=== PATIENT | male | born 1980 | race Caucasian/White ===

== ENCOUNTER 2023-03-20 11:41 | Emergency (ER) | payer MEDICAID, SELFPAY ==
[2023-03-20 11:44] VITALS: BP 127/81; PULSE 95; RESP 18; TEMP 36.6; O2SAT 97; BMI 26.9
[2023-03-20 11:51] VITALS: O2SAT 97
--- NOTE | 2023-03-20 12:15 | EDS_ITS ---
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 Patient is here because he was diagnosed with COVID earlier this morning. Patient has been ill for greater than 3 days. He states that his sugar was greater than 370 because he is also type I diabetic and he is concerned. Patient has not taken any ibuprofen or Tylenol for 12 hours. Patient states that his body is aching, he also has pain to his thighs and groin. He also complains of some chest congestion. PFS <ABHISHEK Gutierrez - Last Filed: 03/20/23 13:24> [facility] Medical History (Updated 03/20/23 @ 13:24 by ABHISHEK Gutierrez) Aortic stenosis Diabetes Home Medications cholecalciferol (vitamin D3) 10 mcg (400 unit) tablet (Vitamin D3) 10 mcg PO DAILY 03/20/23 [History Last Taken Unknown] duloxetine 30 mg capsule,delayed release (Cymbalta) 30 mg PO DAILY 03/20/23 [History Last Taken Unknown] escitalopram oxalate 20 mg tablet 20 mg PO DAILY 03/20/23 [History Last Taken Unknown] levothyroxine 150 mcg tablet (Euthyrox) 150 mcg PO DAILY 03/20/23 [History Last Taken Unknown] loratadine 10 mg tablet (Allergy Relief (loratadine)) 10 mg PO DAILY 03/20/23 [History Last Taken Unknown] rosuvastatin 5 mg tablet (Crestor) 5 mg PO DAILY 03/20/23 [History Last Taken Unknown] Allergy/AdvReac Type Severity Reaction Status Date / Time tramadol Allergy Intermediate Rash Verified 03/20/23 11:44 hydromorphone [From Dilaudid] Allergy Mild Hives Verified 03/20/23 11:44 Surgical History (Updated 03/20/23 @ 11:54 by Loida Reese) History of open heart surgery Social History Smoking Status: Current every day smoker tobacco type: cigarettes ROS <ABHISHEK Gutierrez - Last Filed: 03/20/23 13:24> ROS ED ROS Narrative Constitutional: Negative for weight loss, weakness. Positive fever and chills Eyes: Negative for vision loss, vision change, double vision ENT: Negative for any sore throat, ear pain, congestion Cardiovascular: Negative for any chest pain, tightness, palpitations Respiratory: Negative for any sputum production, hemoptysis, dyspnea on exertion, orthopnea. Positive for dyspnea Gastrointestinal: Negative for any abdominal pain, nausea, vomiting, diarrhea, constipation, blood in stool, blood in vomit : Negative for any urinary frequency, dysuria, retention, blood in urine Muscle skeletal: Negative for any muscle joint pain, stiffness, arthralgias, neck pain, back pain. Positive for myalgias Neurological: Negative for any headache, syncope, numbness or tingling, dizziness Skin: Negative for any rashes, lumps, itching, abrasions, lacerations Psychiatric: Negative for any depression, anxiety, stress, suicidal ideation, homicidal ideation Hematologic: Negative for any easy bruising, excessive bruising, easy bleeding Allergies: Negative for any eczema, hives, rash EXAM <ABHISHEK Gutierrez - Last Filed: 03/20/23 13:24> Physical Exam Narrative Exam Narrative: Vital signs reviewed. HEET: Head normocephalic atraumatic, TMs clear bilaterally. Posterior pharynx is clear, moist mucous membranes. Nares clear bilaterally. Neck: Supple with no lymphadenopathy or tenderness. No signs of meningismus, negative jolt sign. Cardiac: Regular rate and rhythm systolic murmur secondary to think valve, no gallops or rubs, equal peripheral pulses bilaterally. Respiratory: Lungs clear to auscultation bilaterally. No chest tenderness. Abdomen: Soft, nontender, nondistended. No abdominal bruit or pulsatile masses. No hepatosplenomegaly Extremities: No peripheral edema, no signs of gross trauma or deformity. Active full range of motion of all extremities. Neuro: Cranial nerves II through XII intact, no focal neurological deficits. Skin: Clean dry and intact with no rash, purpura, petechiae, vesicles or pustules. Backs/flank: No CVA tenderness, no midline spinal tenderness, no deformity. Psych: Normal mood and affect. No SI, HI or acute psychosis. Const Vital Signs: 03/20/23 11:44 03/20/23 11:51 Temperature 97.8 F Temperature Source Temporal Pulse Rate 95 Respiratory Rate 18 Respiratory Effort Normal Respiratory Depth Normal Respiratory Pattern Normal Blood Pressure 127/81 H Blood Pressure Mean 96 Pulse Ox 97 Oxygen Delivery Method Room Air Room Air <Dr. Melquiades Patel MD - Last Filed: 03/20/23 15:10> Physical Exam Const Vital Signs: 03/20/23 11:44 03/20/23 11:51 Temperature 97.8 F Temperature Source Temporal Pulse Rate 95 Respiratory Rate 18 Respiratory Effort Normal Respiratory Depth Normal Respiratory Pattern Normal Blood Pressure 127/81 H Blood Pressure Mean 96 Pulse Ox 97 Oxygen Delivery Method Room Air Room Air MDM <ABHISHEK Gutierrez - Last Filed: 03/20/23 13:24> [facility] Lab Data Labs: Laboratory Results - last 24 hr 03/20/23 12:43 POC Glucose 242 H Treatment and Re-Evaluation :: Patient appears generally well, patient appears nontoxic, vital signs are stable. Patient does feel warm to the touch. Patient is not take any Tylenol or ibuprofen. Patient I believe is suffering from myalgias because he has not controlling his fever. Patient is also not drinking fluids. Patient will receive Tylenol, ibuprofen here. Patient will have his blood sugar check. Patient's blood sugar was 245. Patient is drinking by mouth fluids. Patient was given ibuprofen, Tylenol. Patient does feel better. At this time, patient was offered an EKG secondary to his heart history however he refused. He states he would like to leave. Patient is in no distress, vital signs are stable. Patient will continue to be in quarantine for the next 3 days. He is instructed to return for any worsening symptoms. He is instructed to use ibuprofen, Tylenol as directed as well as to keep a close eye on his blood sugars. At this time, patient stable for discharge <Dr. Melquiades Patel MD - Last Filed: 03/20/23 15:10> [facility] Narrative Medical decision making narrative: I have personally performed a face to face assessment of the patient and have reviewed the ROBERT Note. I performed a substantive portion of the visit including all aspects of the following. My torres findings include: History: Patient states he has COVID. He knows he has had it for 3 days but thinks it might of been almost a week. He thought it was just a cold at first. But then he learned that other people at his facility have COVID. He states he gets some headaches and muscle aches coughing but not short of breath. He states his sugar was up but he took more insulin his got it down. He states his overall he does not feel good. But he is not having trouble breathing. He is not having nausea or vomiting. Patient told me what I really want is a remote so I can turn on the football game. Exam: Patient is awake and alert. I saw him after he walked back from the restroom. He is comfortable. He is not dyspneic. His lungs are clear. HEENT is overall normal. Heart is regular. He does have a systolic murmur but he has had valvular repair. Abdomen is soft and nontender. He has no significant edema. Just trace swelling of his legs which is normal for him. Medical Decision Making: We initially discussed the possibility of Paxlovid. But it sounds like his symptoms may actually be pushing the limit for duration. We will check BG T to see where he is now. We will also check EKG. We will then discussed Paxlovid with him. Patient then refused the EKG. He stated he just wants to go. He wants to watch the game and does not want to be here any longer. I cannot force him to stay. Lab Data Labs: Laboratory Results - last 24 hr 03/20/23 12:43 POC Glucose 242 H Discharge Plan Triage Chief Complaint: Cold Sx ED Midlevel Provider: Tony Thakur ED Provider: Melquiades Patel Dx/Rx/DC Orders Clinical Impression: COVID-19 Instructions: Coronavirus Disease 2019 (COVID-19): Caring for Yourself or Others Prescriptions: No Action cholecalciferol (vitamin D3) [Vitamin D3] 10 mcg (400 unit) tablet 10 mcg PO DAILY rosuvastatin [Crestor] 5 mg tablet 5 mg PO DAILY levothyroxine [Euthyrox] 150 mcg tablet 150 mcg PO DAILY escitalopram oxalate 20 mg tablet 20 mg PO DAILY duloxetine [Cymbalta] 30 mg capsule,delayed release(DR/EC) 30 mg PO DAILY loratadine [Allergy Relief (loratadine)] 10 mg tablet 10 mg PO DAILY Primary Care Provider: LEELA DUMAS Referrals: NOT,DEFINED [Non-Staff] - Activity Restrictions/Additional Instructions: Take Tylenol every 6 hours, ibuprofen every 8 hours. Maintain hydration keep a close eye on your blood sugars. Disposition Disposition: Home, Self Care Discharge Date/Time: 03/20/23 13:39
[2023-03-20] MEDS: Ibuprofen 600 MG Tablet PO (12:43)
[2023-03-20] MEDS: Acetaminophen 500 MG Tablet 1000 MG PO (12:44)
[2023-03-20 13:03] LABS: Bedside Glucose 242 mg/dL (74-106)
== END 2023-03-20 13:39 | disposition home or self-care (01) ==
PROVIDERS: Emergency Provider Emergency Medicine; Visit Provider Emergency Medicine
DX: U07.1 COVID-19 (principal); F17.210 Nicotine dependence, cigarettes, uncomplicated; Z79.899 Other long term (current) drug therapy
CPT/HCPCS: 82962; 99285

== ENCOUNTER → 2023-04-25 | Outpatient (CLI) | payer MEDICAID, SELFPAY ==
[2023-04-25 09:42] LABS: Hematocrit 43.5 % (40-54); Hemoglobin 14.1 g/dL (13.0-16.5); Mean Corp Hgb Conc 32.4 g/dL (32-36); Mean Corpuscular Hgb 30.5 pg (27.0-32.0); Platelet Count 210 K/mm3 (150-450); RBC Distribution Width SD 44.8 fl (35.1-43.9); Red Blood Count 4.63 M/mm3 (4.6-6.2); White Blood Count 6.7 K/mm3 (4.4-11.0)
[2023-04-25 10:17] LABS: Hemoglobin A1c 8.2 % (3.8-5.6)
[2023-04-25 10:23] LABS: ALB/GLOB Ratio 0.8 RATIO (0.9-2.4); AST(SGOT) 32 U/L (15-37); Alanine Aminotransfer ALT/SGPT 37 U/L (16-61); Albumin, Serum 2.9 g/dL (3.2-5.0); Alkaline Phosphatase 91 U/L (45-117); Anion Gap 6 (5-15); BUN 12 mg/dL (7-18); BUN/Creat Ratio 11.5 RATIO (10-20); Calcium,Total 8.4 mg/dL (8.5-10.1); Chloride 106 mmol/L (98-107); Creatinine, Serum 1.04 mg/dL (0.70-1.30); EST Glomerular Filtration Rate 83 mL/min (>60); Est Glom Filt Rate - Afr Amer 100 mL/min (>60); Free T3 2.5 pg/mL (2.18-3.98); Globulin 3.5 g/dL (2.2-4.2); Glucose 350 mg/dL (74-106); Potassium 4.4 mmol/L (3.5-5.1); Protein, Total 6.4 g/dL (6.4-8.2); Sodium Level 140 mmol/L (136-145); T4 Free Direct 0.59 ng/dL (0.76-1.46); T4 Total, Thyroxin 3.7 ug/dL (4.5-12.1); Thyroid Stim Hormone (TSH) 5.66 uIU/mL (0.358-3.74)
== END | disposition home or self-care (01) ==
PROVIDERS: Referring Provider Family Medicine; Visit Provider Family Medicine
DX: R94.6 Abnormal results of thyroid function studies (principal)
CPT/HCPCS: 36415; 80053; 83036; 84436; 84439; 84443; 84481; 85027

== ENCOUNTER → 2024-12-12 | Outpatient (CLI) | payer MEDICAID, SELFPAY ==
--- NOTE | 2024-12-12 12:20 | RAD_ITS ---
PROCEDURE: CERV SPINE 4 OR 5 VIEWS 12/12/2024 REASON FOR EXAM: NECK AND R ARM PAIN TECHNIQUE: 6 views of the cervical spine. COMPARISON: None FINDINGS: Vertebral body heights are maintained. There is straightening of the normal cervical lordosis. [id number] multilevel disc height loss, endplate osteophyte formation, with uncovertebral and facet arthropathy. These changes are worst at C6-7 where there is at least mild osseous neural foraminal narrowing bilaterally. The odontoid view is unremarkable. Median sternotomy wires are partially imaged. RAD/Cerv Spine 4 or 5 Views IMPRESSION: 1. [id number] degenerative changes of the cervical spine, worst at C6-7. 2. Straightening of the normal cervical lordosis may be related to pain, posit ioning, or spasm Reading Location: [id number]
== END | disposition home or self-care (01) ==
LOC: RAD 12:07
PROVIDERS: Referring Provider Anesthesiology Pain Medicine; Visit Provider Anesthesiology Pain Medicine
DX: M54.2 Cervicalgia (principal); M79.601 Pain in right arm
CPT/HCPCS: 72050

== ENCOUNTER → 2025-01-16 | Outpatient (CLI) | payer MEDICAID, SELFPAY ==
--- NOTE | 2025-01-16 16:29 | MRI_ITS ---
PROCEDURE: SPINE CERVICAL (ROUTINE) 01/16/2025 REASON FOR EXAM: RADICULOPATHY TECHNIQUE: SPINE CERVICAL (ROUTINE) Multiplanar and multisequence images were obtained without IV contrast administration. COMPARISON: 01-11-2025 CR FINDINGS: Straightening of cervical spine curve denoting muscle spasm. Preserved vertebral bodies height. No vertebral fractures or dislocation. Normal craniometric measures of the craniovertebral junction Cervical spondylodegenerative changes evident by multilevel anterior marginal osteophytic lipping and subchondral degenerative marrow signal/Modio II of the examined vertebral end plates with variable degrees of reduced bright T2 signal of the intervertebral discs. C1-C2: Atlantodens interval is preserved. Odontoid process and atlantoaxial joint appear normal. Mild atlanto-axial degenerative changes. C2-C3: There is no significant disc pathology. Normal morphology of the ligamentum flava. No arthropathy of the uncovertebral joints. No significant spinal canal stenosis noted. C3-C4: a 2.4 mm diffuse disc bulge with right foraminal protrusion along with bilateral uncovertberal arthropathy indenting the theca encroaching upon the related neural exit foramina inducing marked right and mild left exiting nerve roots compression. C4-C5: a 3.9 mm diffuse disc bulge with left foraminal protrusion along with bilateral uncovertberal arthropathy indenting the theca encroaching upon the related neural exit foramina inducing moderate right and marked left exiting nerve roots compression. C5-C6: a 3 mm diffuse disc bulge along with bilateral uncovertberal arthropathy indenting the theca encroaching upon the related neural exit foramina inducing moderate exiting nerve roots compression. C6-C7: a 4.5 mm diffuse disc bulge along with bilateral uncovertberal arthropathy indenting the theca encroaching upon the related neural exit foramina inducing marked exiting nerve roots compression. C7-T1: a 2 mm diffuse disc bulge indenting the theca encroaching upon the related neural exit foramina inducing moderate exiting nerve roots compression. Normal appearance of the examined cervical cord and cranio-cervical junction. No marrow infiltrative lesions. No paraspinal soft tissue masses. MRI/Spine Cervical (Routine) IMPRESSION: Straightening of cervical curve denoting myospasm. Cervical spondylodegenerative changes with multilevel disc changes along with u ncovertberal arthropathy inducing neural foraminal compromise as detailed. Reading Location: [facility]
== END | disposition home or self-care (01) ==
LOC: MRI 16:24
PROVIDERS: Referring Provider Anesthesiology Pain Medicine; Visit Provider Anesthesiology Pain Medicine
DX: M54.12 Radiculopathy, cervical region (principal)
CPT/HCPCS: 72141

== ENCOUNTER 2025-02-05 10:00 | Outpatient (RCR) | payer MEDICAID, SELFPAY ==
--- NOTE | 2025-01-17 16:22 | HP.PTEVAL ---
Patient's Visit Information Visit Information Visit Information: SAMANTHA ZHONG is a 44 year old M referred to Physical Therapy by Dr. Freddy Mujica MD with a diagnosis of B hip pain, neck pain. Date of Evaluation: 01/17/25 Physical Therapist: Kahlil Siegel, DPT, OCS, CSCS Visit Plan Frequency: 2x /Week Duration: 4-6 Weeks Plan: 2x/week for , 4-6(start 2 and possibly pool after as patient had heart surgery 4 weeks ago adn will check with doctor on restriction), EG to recheck in two weeks. IE HEP: c/s ret 10x 8x.day, ret/ext 10x4x/day, scap circles throughout day, appropriate posture on phone and reading and in general all with HO Treat with 1. NWB hip strength on mat to I over first two weeks with pics. 2. manual therapy for cervical ret ext adn traction, sTM to parspinals neck and progression of cervical ext monitorring progress with R arm symptoms and neck pain. consider pool or gym after first two weeks. Subjective Subjective: Chronic pain and seent to pain mgmt. B hip pain with h/o R hip labral tear and repair. Pain creeping back here. L hip hurts also. Neck hurts also, shooting pain down R UE. Looking down made it worse. Had MRI of neck yesterday and jose g will return to spine surgeon. R hip pain is lateral and into buttock worse with walking , Similar on L side but more intermittent. Neck pain is center and off to sides. Up to 5/10 worse lying down at night. Arm symptoms worse lying down adn reading and phone looking down. Sleeps on sides. Wakes him up at times. Employed: no tocurrently, spends day recovering from heart surgery 12/25 and had mechanical valve placement:Not lifting more than 10 # until end January. Hobbies: sports watching. Basic ADLs are I. Cooking meals I.Steps are no problem at homee. Pain B hip pain: Pain Intensity (Out of 10): 0 Pain Intensity Range: 0 and 3 Comment: worse WB and sitting too long. Objective Objective: Walks into PT I and safely, protracted scap, kyphotic T/S looking down often. Trasnfrs chair and bed I. Limited scap ROM depression and retraction B. cervical aROM 15 ext adn 35 B rotation with end range pain in neck. Looking down makes tingly numbness worse, repeated ext increases ext rOM quickly. UE AROM stiff in elevation but WFL, strength 4- shoulder flexion adn abd and er, 4 IR adn bi and tri and wrists. Hip aROM limited in flexion B and IR B with pain end range B L >R, + FADDIR B, ESTRELLITA is OK. 50 er and 5 IR. knee adn ankle AROM WFL. Max tightness in pecs, HS and quads B. reflexes 2/3 bi and tri and patella and achilles Sensation UE WNL to gross light touch. LE gross light touch seems OK but motor control in ankles seems slow B inv/eev. - slump, - SLR. Weakness apparent in abd and ext hips 3/5, flexion 3+ B, knees 4+/5, ankles 4/5 Chest incision is healed, drainage incisions still scabbed over. Balance/Special Test Scores Oswestry Neck Score: 26 Goals Goal 1:: neck ext to 50 and rotations to 55 without pain to show improved motion/funciton Goal Time Frame: 4-6 Weeks Goal 2:: I appropriate mgmt of neck exercises for UE and hip strength for hips at homee or in gym. Goal Time Frame: 4-6 Weeks Goal 3:: Sleep without waking due to arm symptoms and neck pain Goal Time Frame: 4-6 Weeks Goal 4:: steps and marching without pain Goal Time Frame: 4-6 Weeks Goal 5:: nck oswestry 4 or better Goal Time Frame: 4-6 Weeks Rehabilitation Potential Physical Therapy Diagnosis: neck loss of ROM likely discopathy, hip with degenerative changes B. Rehabilitation Potential: Fair Anticipated Interventions Patient/Client Instruction: Educate patient on: Condition and Plan of Care For the Purpose of:: To decrease pain, To increase ROM, To improve nutrient delivery to tissue, To improve muscle performance and motor function, To increase tolerance to activity/condition/position and To improve gait and locomotor functions Therapeutic Exercise to Include: Strength training, Postural training, Flexibilty training, Gait and locomotor training, Passive ROM, Active ROM and Nahum Exercises For the Purpose of:: To decrease pain, To increase ROM, To improve nutrient delivery to tissue, To improve muscle performance and motor function, To increase tolerance to activity/condition/position, To improve ability of physical actions for home/community/work/leisure and To improve gait and locomotor functions Manual Therapy Techniques to Include: Mobilization, Passive ROM and Soft tissue mobilization For the Purpose of:: To decrease pain, To increase ROM, To improve nutrient delivery to tissue, To increase tolerance to activity/condition/position and To improve ability of physical actions for home/community/work/leisure Text: Thank you for the opportunity to evaluate your patient. For Medicare and Medicare HMO plans, please review the plan of care and approve it. It will need to be FAXED BACK to us at [phone] for Medicare purposes. For Medicare only, by signing this I certify the plan of care. Please let me know if there are questions or concerns regarding this plan of care. Physician Signature: Date:
--- NOTE | 2025-03-21 15:59 | HP.PTDCNRP_ITS ---
Patient Information Patient Information: SAMANTHA ZHONG was seen in my office for initial evaluation on 01/17/25. The following Plan of Care was established for this patient: POC Established Initial Frequency: 2x /Week Initial Duration: 4-6 Weeks Anticipated Interventions Patient/Client Instruction: Educate patient on: Condition and Plan of Care For the Purpose of:: To decrease pain, To increase ROM, To improve nutrient delivery to tissue, To improve muscle performance and motor function, To increase tolerance to activity/condition/position and To improve gait and l ocomotor functions Therapeutic Exercise to Include: Strength training, Postural training, Flexibilty training, Gait and locomotor training, Passive ROM, Active ROM and Nahum Exercises For the Purpose of:: To decrease pain, To increase ROM, To improve nutrient delivery to tissue, To improve muscle performance and motor function, To increase tolerance to activity/condition/position, To improve ability of physical actions for home/community/work/leisure and To improve gait and locomotor functions Manual Therapy Techniques to Include: Mobilization, Passive ROM and Soft tissue mobilization For the Purpose of:: To decrease pain, To increase ROM, To improve nutrient delivery to tissue, To increase tolerance to activity/condition/position and To improve ability of physical actions for home/community/work/leisure Last Seen Last Seen: This patient was last seen in our office 02/05/25. Pertinent comments regarding their Physical therapy will appear below: Pt seen 5 visits of POC and was 10% better and still having cervical radicular symptoms. He was to continue the POC afteere f/u with surgeon but never returned. At this point, it has been over 4 weeks and I will discontinue from my care. At this point I will be discontinuing this patient from physical therapy. I would be happy to see this patient again in the future if found appropriate by the physician. Thank you! Kahlil Siegel, DPT, OCS, CSCS Balance/Gait/Functional tests Balance/Special Test Scores Oswestry Neck Score: 26
== END 2025-02-05 19:00 | disposition home or self-care (01) ==
LOC: PT 10:00
PROVIDERS: Referring Provider Anesthesiology Pain Medicine; Visit Provider Anesthesiology Pain Medicine
DX: M25.559 Pain in unspecified hip (principal); M54.2 Cervicalgia
CPT/HCPCS: 97110; 97140; 97162; 97530

== ENCOUNTER → 2025-03-27 | Outpatient (CLI) | payer MEDICAID, SELFPAY ==
--- OUTSIDE RECORDS SUMMARY | 2025-03-27 07:06 | XMS RPT_ITS | CCD ---
Author Organization [facility] CliniSymd Care Team Providers Care Information Security Director Name Role Phone TANIADIAZ Unavailable Unavailable ERIN MONK Unavailable Unavailable KAYLEIGH BRYAN Unavailable Unavailable LUIS F ANTHONY Unavailable Unavailable YADI THOMPSON Attending Unavailable *SELF, REFERRED Referring Unavailable UNKNOWN, PCP Primary Care Unavailable Beto Linares Primary Care Provider [phone] Daria Stephenson Primary Care Provider HANS FAGAN Referring Unavailable DARIA STEPHENSON Primary Care Unavailable LUZ MARIA PEREZ Admitting Unavailable LUZ MARIA PEREZ Attending Unavailable UNKNOWN, PHYSICIAN Referring Unavailable UNKNOWN, PHYSICIAN Primary Care Unavailable Giovanni Ellis CNP Primary Care Provider [phone] Noam Luevano MD Unavailable PHYSICIAN, NOT RECORDED Primary Care Physician Kacie Payne APRN, CNP Primary Care Provider Luz Maria Perez Unavailable [phone] Luz Maria Perez Carlin Unavailable Abhinav Garrett MD Unavailable Luz Maria Perez Unavailable Luz Maria Perez Carlin Unavailable Abhinav Garrett MD Unavailable Erika Taveras Attending Unavailable Beto Linares Primary Care Unavailable Beto Linares Referring Unavailable PROVIDER, UNKNOWN Referring Unavailable Mateo Rojas Attending Unavailable Cara, Kacie Primary Care Unavailable Vijay Beto Primary Care Unavailable Beto Linares Referring Unavailable Luz Maria Perez Attending Unavailable PROVIDER, UNKNOWN Referring Unavailable Cara, Kacie Primary Care Unavailable Luz Maria Perez Attending Unavailable PROVIDER, UNKNOWN Referring Unavailable Mateo Rojas Attending Unavailable Cara, Kacie Primary Care Unavailable Abhinav Garrett MD Unavailable Luz Maria Perez Unavailable Luz Maria Perez Unavailable Abhinav Garrett MD Unavailable Chan FIELDS, Abhinav Cohen Unavailable Jesse Ward DO Primary Care Provider Daria Stephenson MD Primary Care Provider Daily LUMBER HACKER.SENIOR TECHNICAL ARCHITECT, Sruthi Primary Care Provider PHYSICIAN, PATIENT UNSURE Primary Care Physician Unavailable Luz Maria Perez Unavailable Chan FIELDS, Abhinav Cohen Unavailable Daily LUMBER HACKER - SENIOR TECHNICAL ARCHITECTSruthi Primary Care Provide r Luz Maria Perez MD Unavailable Luz Maria Perez MD Unavailable Daily LUMBER HACKER.[facility] [place], Sruthi [facility] LUMBER HACKER.SENIOR TECHNICAL ARCHITECT, Robyn Cohen Primary Care Provider Daily LUMBER HACKER.[facility] Primary Care Pro vider SRUTHI AMBROSIO Primary Care Physician NIMESH FONSECA Admitting Unavail able LUZ MARIA DECKER Attending Unavailable SRUTHI AMBROSIO Primary Care Unavailab SEAN Mazariegos MD Attending Unavailable SRUTHI AMBROSIO Primary Care Unavailab MIQUEL Viera MD Attending Unavailable PHYSICIAN, NONE Primary Care Unavailable KING PORRAS MD Attending Unavailable ERNA FIELDS, ROSCOE Espinoza Primary Care Physician Erna FIELDS, Roscoe Unavailable Erna FIELDS, Roscoe Primary Care Provider ERNA FIELDS, ROSCOE Espinoza Primary Care Unavailable CHRIS FIELDS, DR LUZ MARIA Wells Attending Unavailable CHRIS FIELDS, DR LUZ MARIA Wells Admitting Unavailable Luz Maria Perez MD Unavailable Erin Morris MD Unavailable Roscoe Arias MD Unavailable ERNA, EDWARD Primary Care Provider Sil FIELDS, Dr. Hayes Attending Provider Sil FIELDS, Dr. Hayes Referring Provider Erna FIELDS, PhD, [facility] Primary Care Pro vider Temsi LUMBER HACKER.SENIOR TECHNICAL ARCHITECT, Robyn Cohen Primary Care Provider Lloyd FIELDS, Kristal Unavailable Shereen FIELDS, Madison Espinoza Unavailable [phone] Sil FIELDS, Freddy Childers Unavailable PROVIDER, UNKNOWN Referring [facility]available [facility] Primary Care Unavailable [facility] Care Unavaila ble PROVIDER, UNKNOWN Referring Unavailable 13, Pharmacist Unavailable Luz Maria Perez MD Unavailable [phone] Erna FIELDS, PhD, [facility] Primary Care Pro vider Luz Maria Perez MD Unavailable [phone] Daily LUMBER HACKER.SENIOR TECHNICAL ARCHITECT, Sruthi Fernandez Primary Care Pro vider Ghada Mejía DO Unavailable ERNA, EDWARD Attending Unavailable ERNA, EDWARD Primary Care Unavailable ROMAN FERNÁNDEZ MD Attending Unavailable ERNA, EDWARD Primary Care Unavailable AMANDA RUELAS DO Attending Unavailable ERNA, EDWARD Primary Care Unavailable ARLENE BARNETT DO Attending Unavailable ERNA, EDWARD Primary Care Unavailable KRISTAL DESAI MD Attending Unavaila ble ERNA, EDWARD Primary Care Unavailable ERNA, EDWARD Primary Care Unavailable DR LUZ MARIA PEREZ MD Attending Unavailable ERNA, EDWARD Attending Unavailable ERNA, EDWARD Primary Care Unavailable ERNA, EDWARD Attending Unavailable ERNA, EDWARD Primary Care Unavailable ERNA, EDWARD Primary Care Unavailable ERNA, EDWARD Attending Unavailable KRISTAL DESAI MD Attending Unavaila ble TEMSIC, MRS. CARLSON Primary Care Unavailable Chan FIELDS, Renay Primary Care Provider Temsic LUMBER HACKER.SENIOR TECHNICAL ARCHITECT, Robyn Cohen Primary Care Provider Shereen FIELDS, Madison Espinoza Unavailable Ina Cerrato MD Unavailable NONE, NONE Unavailable Unavailable Chan FIELDS, Renay Primary Care Provider Temsic LUMBER HACKER.Robyn FOOTE Primary Care Provider Temsic LUMBER HACKER.QAMAR, Robyn Cohen Primary Care Provider VAMSHI BENSON Attending Unavailable TEMSIROBYN Primary Care Unavailable Luis Carlos FIELDS, Dr. Zurita Attending Provider Care Physician, No Primary Primary Care Provider Unavailable Care Physician, No Primary Referring Provider Un available Mahamed FIELDS, Dr. Taveras Attending Provider ERIN MORRIS Attending Unavailable ERNA, EDWARD Primary Care Unavailable ERNA, EDWARD Primary Care Unavailable ERIN MORRIS Attending Unavailable SHAUB, LUZ MARIA Attending Unavailable ERNA, EDWARD Primary Care Unavailable Basali, Ayman Referring Unavailable SOLIS, SATHYANARAYAN Primary Care Unavailable Basali, Ayman Attending Unavailable Basali, Ayman Referring Unavailable SOLIS, SATHYANARAYAN Primary Care Unavailable Basali, Ayarjun Attending Unavailable Care Physician, No Primary Primary Care Unava ilable Care Physician, No Primary Referring Unava ilable Parminder Aldridge Attending Unavailable Care Physician, No Primary Primary Care Unava ilable Nitin Irby Attending Unavailable Care Physician, No Primary Primary Care Unava ilable Raghunathan, Kristal Na Attending Unavaila ble Raghunathan, Kristal Na Referring Unavaila ble SOLIS, SATHYANARAYAN Primary Care Unavailable Raghunathan, Kristal Na Attending Unavaila ble Raghunathan, Kristal Na Referring Unavaila ble Basali, Ayman Referring Unavailable SOLIS, SATHYANARAYAN Primary Care Unavailable Basali, Ayman Attending Unavailable Temsic LUMBER HACKER.Robyn FOOTE Primary Care Provider Chan FIELDS, Renay Primary Care Provider Chan FIELDS, Renay Primary Care Provider SRUTHI AMBROSIO Primary Care Unavailable CHELSI SAWYER Attending Unavailab le TEMSIC, ROBYN K Attending Unavailable TEMSIC, ROBYN K Primary Care Unavailable TEMSIC, ROBYN K Attending Unavailable TEMSIC, ROBYN K Primary Care Unavailable TEMSIC, ROBYN K Attending Unavailable TEMSIC, ROBYN K Primary Care Unavailable TEMSIC, ROBYN K Attending Unavailable RENAY GARRETT Primary Care Unavailable TEMSIC, ROBYN K Referring Unavailable TEMSIC, ROBYN K Primary Care Unavailable TEMSIC, ROBYN K Primary Care Unavailable SOLTESZ, EDWARD G Referring Unavailable SOLTESZ, EDWARD G Referring Unavailable ERNA, EDWARD ALCAZAR Primary Care Unavaila ble TEMSIC, ROBYN K Primary Care Unavailable SOLTESZ, EDWARD G Admitting Unavailable SOLTESZ, EDWARD G Attending Unavailable ERNA, EDWARD BLUE EARTH Primary Care Unavaila JARED Alvarado Attending Unavailable TIERA MACKENZIE Referring Unavailable ERNA, EDWARD ALCAZAR Primary Care Unavaila DELFINA Rojas Attending Unavailable TEMSIC, ROBYN K Referring Unavailable TEMSIC, ROBYN K Primary Care Unavailable SOLTESZ, EDWARD G Referring Unavailable ERNA, EDWARD BLUE EARTH Primary Care Unavaila ble SOLTESZ, EDWARD G Referring Unavailable ERNA, EDWARD ALCAZAR Primary Care Unavaila ble TEMSIC, ROBYN K Primary Care Unavailable [facility] SRUTHI Primary Care Unavailable SOLTESZ, EDWARD G Referring Unavailable [facility] Primary Care Unavailable SOLTESZ, EDWARD G Referring Unavailable DAILY, SRUTHI Primary Care Unavailable SOLTESZ, EDWARD G Referring Unavailable REHANA AVILES Attending Unavailable [facility] SRUTHI Primary Care Unavailable SOLTESZ, EDWARD G Referring Unavailable DAILY, SRUTHI Primary Care Unavailable SOLTESZ, EDWARD G Attending Unavailable SOLTESZ, EDWARD G Referring Unavailable TEMSIC, ROBYN K Primary Care Unavailable DAILY, SRUTHI Primary Care Unavailable SOLTESZ, EDWARD G Attending Unavailable JT KING Attending Unaangeline UMANZOR, EDWARD ALCAZAR Primary Care Unavaila ble SOLTESZ, EDWARD G Referring Unavailable DAILY, SRUTHI Primary Care Unavailable SOLTESZ, EDWARD G Referring Unavailable ERNA, EDWARD BLUE EARTH Primary Care Unavaila MALICK Jean-Baptiste Attending Unavailable MALICK COOPER Admitting Unavailable TEMSIC, ROBYN K Primary Care Unavailable KHOT, JARED N Attending Unavailable GRANTOT, JARED N Admitting Unavailable SOLTESZ, EDWARD G Referring Unavailable ERNA, EDWARD ALCAZAR Primary Care Unavaila ble SOLTESZ, EDWARD G Attending Unavailable SOLTESZ, EDWARD G Referring Unavailable ERNA, EDWARD ALCAZAR Primary Care Unavaila ble TEMSIC, ROBYN K Primary Care Unavailable TEMSIC, ROBYN K Referring Unavailable TEMSIC, ROBYN K Primary Care Unavailable TEMSIC, ROBYN K Primary Care Unavailable TEMSIC, ROBYN K Primary Care Unavailable TEMSIC, ROBYN K Primary Care Unavailable MARYSOL CARDOZA Attending Unavailable RENAY GARRETT Attending Unavailable RENAY GARRETT Primary Care Unavailable TEMSIC, ROBNY K Primary Care Unavailable SOLTESZ, EDWARD G Referring Unavailable TEMSIC, ROBYN K Primary Care Unavailable SOLTESZ, EDWARD G Referring Unavailable ERNA, EDWARD ALCAZAR Primary Care Unavaila ble DAILY, SRUTHI Primary Care Unavailable SOLTESZ, EDWARD G Referring Unavailable CROW JOSEPH Attending Niecy UMANZOR, EDWARD ALCAZAR Primary Care Unavaila ble SOLTESZ, EDWARD G Referring Unavailable DAILY, SRUTHI Primary Care Unavailable SOLTESZ, EDWARD G Referring Unavailable DAILY, SRUTHI Primary Care Unavailable SOLTESZ, EDWARD G Referring Unavailable Allergies Allergy Classification Reported Allergen(s) Allergy Type Date of Onset Reaction(s) Facility Opioid Agonists (2 sources) HYDROmorphone Drug Allergy 9 Itching, Other: See Comments [facility] (2 sources) Acetaminophen / oxyCODONE Drug Allergy 9 Itching, [place] (3 sources) HYDROmorphone Drug Allergy 9 [place] (20 sources) HYDROmorphone; Translations: [hydromorphone] Drug Allergy 9 Itching [facility] (20 sources) traMADol; Translations: [tramadol] Drug Allergy 2 Other: See Comments, Unknown [facility] (1 source) HYDROmorphone Drug Allergy 2 [facility] (1 source) traMADol Drug Allergy 1 itching [facility] (1 source) HYDROmorphone Drug Allergy 5 [facility] (1 source) traMADol Drug Allergy 5 [facility] Medications Current Medications Medication Drug Class(es) Dates Sig (Normalized) Sig (Original) acetaminophen 500 mg oral tablet (20 sources) Start: 12-31-2024 take 500-1000 mg by mouth every six hours as needed acetaminophen (TYLENOL) 500 mg tablet Take 1-2 tablets by mouth every 6 hours as needed for pain. Do not exceed 4000mg in 24 hours 12/31/2024 Active Start: 01-31-2022 End: 02-02-2022 take 1.5 tablets by mouth every six hours acetaminophen (TYLENOL) 325 mg tablet Take 1.5 tablets by mouth every 6 hours for 2 days. 12 tablet 0 01/31/2022 02/02/2022 Active Start: 07-22-2021 End: 12-31-2024 acetaminophen (TYLENOL) 500 mg tablet Take 1,000 mg by mouth as needed. 07/22/2021 12/31/2024 Discontinued Start: 07-22-2021 Acetaminophen Extra Strength 500 MG tablet 09/18/2021 Active Start: 01-06-2021 take 1 tablet by tere th every six hours as needed for pain acetaminophen (TYLENOL) 500 MG tablet Indications: Right hip pain Take 1 tablet by mouth every 6 hours as needed for Pain. 90 tablet 1 01/06/2021 Active Start: 12-25-2018 take 2 tablets by mo [facility] every eight hours acetaminophen (TYLENOL) 500 MG tablet Take 2 tablets by mouth every 8 hours 120 tablet 0 12/25/2018 Active Comment on above: Take 1,000 mg by tere th every 6 hours as needed. Take 1.5 tablets by mouth every 6 hours for 2 days. 1,000 mg. [id number] 200 actuat albuterol 0.09 mg/actuat metered dose inhaler (20 sources) beta2-Adrenergic Agonist Start: 03-04-2025 take 2 puff(s) by inhalation every four hours as needed albuterol HFA (PROVENTIL HFA, VENTOLIN HFA) 90 mcg/actuation inhaler Indications: Simple chronic bronchitis (HCC) , History of asthma , Shortness of breath Inhale 2 puffs as instructed every 4 hours as needed. 18 g 3 03/04/2025 Active Start: 05-29-2024 take 2 puff(s) by in halation every six hours as needed for wheezing ProAir Digihaler 90 mcg/inh inhalation powder 2 puff(s), Inhalation, q6h, PRN as needed for shortness of breath or wheezing, # 1 EA, 0 Refill(s), Pharmacy: [id number], Acute bronchitis, 193, cm, 05/29/24 11:06:00 EST, Height, kg, 05/29/24 11:06:00 EST, Dosing Weight Start Date: 05/29/24 Status: Ordered Quantity: 1.0 Unit: EA Repeat number: 1 Indication: Acute bronchitis, unspecified Start: 09-16-2020 albuterol 108 (90 Base) MCG/ACT inhaler Inhale 2 puffs. 09/16/2020 Active Start: 09-16-2020 End: 07-21-2022 take 2 puff(s) by inhalation every four hours as needed albuterol HFA (PROVENTIL HFA, VENTOLIN HFA) 90 mcg/actuation inhaler Inhale 2 Puffs as instructed every 4 hours as needed. 0 09/16/2020 07/21/2022 Discontinued (Other) Start: 09-16-2020 take 2 puff(s) by in halation four times daily as needed for wheezing albuterol sulfate HFA (VENTOLIN HFA) 108 (90 Base) MCG/ACT inhaler Indications: Shortness of breath , History of asthma Inhale 2 puffs into the lungs 4 times daily as needed for Wheezing 1 Inhaler 0 09/16/2020 Active Comment on above: Inhale 2 Puffs as in structed every 4 hours as needed. amoxicillin 875 mg / clavulanate 125 mg oral tablet (1 source) Penicillin-class Antibacterial Start: take 1 tablet by mouth twice daily amoxicillin-clavul anate (AUGMENTIN) 875-125 MG per tablet Indications: Acute non-recurrent frontal sinusitis Take 1 tablet by mouth two times a day. 20 tablet 0 10/20/2020 Active ascorbic acid 500 mg oral tablet (20 sources) Vitamin C Start: Ascorbic Acid (Vitamin C) 500 mg tablet Active PO daily March 15, 2025 12:00am Start: 01-21-2025 ascorbic acid, vitamin C, (VITAMIN C) 500 mg tablet Indications: Iron deficiency anemia secondary to inadequate dietary iron intake Take vitamin C daily with iron to increase absorption. 90 tablet 3 01/21/2025 Active Start: 01-21-2025 ascorbic acid (Vitamin C) 500 MG tablet ascorbic acid, vitamin C, (VITAMIN C) 500 mg tablet Indications: Iron deficiency anemia secondary to inadequate dietary iron intake Take vitamin C daily with iron to increase absorption. 90 tablet 3 01/21/2025 Active 01/21/2025 Active aspirin 81 mg chewable tablet (20 sources) Platelet Aggregation Inhibitor, Nonsteroidal Anti-inflammatory Drug Start: 01-01-2025 take 1 tablet by mouth once daily in the evening aspirin 81 mg chewable tablet Take 1 tablet by mouth once daily. 30 tablet 2 12/31/2024 4:05 PM EDT 01/01/2025 Active Start: 01-31-2022 End: 07-21-2022 take 1 tablet by mouth once daily aspirin 81 mg chewable tablet Take 1 tablet by mouth once daily. 90 tablet 0 01/31/2022 07/21/2022 Discontinued (Other) take 1 tablet by tere th once daily aspirin 81 MG EC tablet Take 81 mg by mouth daily. Active End: 12-20-2024 take 1 tablet by mouth every twenty-four hours aspirin, enteric coated (ASPIRIN, ENTERIC COATED) 81 mg EC tablet Take 81 mg by mouth q 24 HR. 12/20/2024 Discontinued (Other) Comment on above: Take 1 tablet by tere th once daily. Take 81 mg by mouth q 24 HR. bacitracin zinc 0.5 unt/mg topical ointment (10 sources) Start: 10-29-2021 bacitracin 500 UNIT/GM ointment Start: 10-29-2021 End: 05-06-2023 bacitracin 500 UNIT/GM ointm ent benzonatate 100 mg oral capsule (5 sources) Non-narcotic Antitussive Start: 05-25-2024 Tessalon Perles 100 mg oral capsule Dose : 100 mg = 1 cap(s), Oral, q8h, PRN as needed for cough, # 30 cap(s), 0 Refill(s), Pharmacy: [facility] #[id number], Cough, 193, cm, 05/23/24 9:11:00 EST, Height, kg, 05/23/24 9:11:00 EST, Dosing Weight Start Date: 05/25/24 Status: Ordered Quantity: 30.0 Unit: cap(s) Repeat number: 1 Indication: Cough, unspecified Start: 03-27-2019 End: 12-31-2021 take 1 capsule by mouth three times daily as needed for cough Benzonatate 200 mg capsule Indications: Sinobronchitis Take 1 capsule by mouth three times daily as needed for Cough. 30 capsule 0 03/27/2019 12/31/2021 Discontinued (Other) Comment on above: Take 1 capsule by mo ut three times daily as needed for Cough. celecoxib 200 mg oral capsule (4 sources) Nonsteroidal Anti-inflammatory Drug Start: take 1 capsule by mouth twice daily celecoxib (CELEBREX) 200 MG capsule Indications: Right hip pain Take 1 capsule by mouth two times a day. 60 capsule 1 01/06/2021 Active cephalexin 500 mg oral capsule (1 source) Cephalosporin Antibacterial Start: End: take 1 capsule by mouth four times daily cephALEXin (KEFLEX) 500 MG capsule Take 1 capsule by mouth 4 times daily for 10 days 40 capsule 0 05/10/2019 05/20/2019 Active cholecalciferol 0.01 mg oral tablet (20 sources) Vitamin D Start: 023 take 1 tablet by mouth once daily Cholecalciferol (Vitamin D3) (Vitamin D3) 10 mcg (400 unit) tablet Active 10 ug PO DAILY March 20, 2023 12:00am Start: 10-12-2021 End: 12-27-2024 take 1 tablet by mouth in the morning cholecalciferol (Vitamin D-3) 50 MCG (2000 UT) tablet Take 1 tablet by mouth in the morning. 10/12/2021 Active take 1 capsule by mo uth every week cholecalciferol, Vitamin D3, (VITAMIN D3) 1,250 mcg (50,000 unit) cap capsule Take 50,000 Units by mouth one time a week. Active Comment on above: Take [address] tablet [address] [facility] once daily. ciclopirox 7.7 mg/ml topical cream (20 sources) Start: 01-02-2025 ciclopirox (LOPROX) 0.77 % cream APPLY TOPICALLY TO THE AFFECTED AREA TWICE DAILY NEEDED FOR RASH 01/02/2025 Active Start: 02-22-2022 End: 05-06-2023 ciclopirox (Loprox) 0.77 % c ream ciprofloxacin 500 mg oral tablet (4 sources) Quinolone Antimicrobial Start: 11-27-2020 take 1 tablet by mouth twice daily ciprofloxacin (CIPRO) 500 MG tablet Indications: Acute cystitis with hematuria Take 1 tablet by mouth two times a day. 20 tablet 0 11/27/2020 Active clotrimazole 10 mg/ml topical cream (9 sources) Azole Antifungal Start: 07-21-2022 End: 08-04-2022 clotrimazole (LOTRIMIN, CLOTRIM) 1 % cream Indications: Type 1 diabetes mellitus with hyperglycemia (HCC) Apply 1 application to affected area twice daily for 14 days. 45 g 0 07/21/2022 08/04/2022 Active Start: 10-17-2020 clotrimazole ( LOTRIMIN) 1 % cream Indications: Athlete's foot on right Apply to feet daily 30 g 0 10/17/2020 Active Comment on above: Apply 1 application to affected area twice daily for 14 days. CLOTRIMAZOLE ANTI-FUNGAL (CLOTRIMAZOLE) 1 % CREA (1 source) Start: 11-15-2018 clotrimazole 1% cream once a day active Aga Puri AT [facility] Continuous Blood Gluc Sensor (DEXCOM G6 SENSOR) MISC (2 sources) Start: 01-20-2021 Continuous Blood Gluc Sensor (DEXCOM G6 SENSOR) [facility] 1 each by Does not apply route every 10 days. 12 each 1 01/20/2021 Active Continuous Blood Gluc Sensor (FreeStyle Carlton 2 Sensor) misc (16 sources) Start: 09-21-2022 Continuous Blood Gluc Sensor (FreeStyle [place] 2 Sensor) [facility] [place] SENSOR TO BACK OF UPPER ARM,REMOVE AND REPLACE EVERY 14 DAYS 3 each 2 09/21/2022 Active Start: 07-15-2022 End: 09-21-2022 Continuous Blood Gluc Sensor (FreeStyle Carlton 2 Sensor) misc 1 Device every 14 (fourteen) days. 3 each 3 07/15/2022 09/21/2022 Discontinued Start: 07-15-2022 Continuous Blo od Gluc Sensor (FreeStyle Carlton 2 Sensor) misc 1 Device every 14 (fourteen) days. 3 each 3 07/15/2022 Active Continuous Blood Gluc Transm it (DEXCOM G6 TRANSMITTER) MISC (2 sources) Start: 01-20-2021 Continuous Blo od Gluc Transmit (DEXCOM G6 TRANSMITTER) MISC 1 each by Does not apply route every 3 months. 1 each 1 01/20/2021 Active Continuous Blood Gluc Transm it (Dexcom G6 transmitter) misc (16 sources) Continuous Blood Gluc Transmit (Dexcom G6 transmitter) misc Change every 90 days Active Continuous Blood Gluc Transmit (Dexcom G6 transmitter) misc Change every 90 days 0 Active Dexcom G6 Sensor (2 sources) Start: 04-16-2024 Dexcom G6 Sens or See Instructions, Place one sensor to the abdomen every 10 days. Use reader or phone efe for daily blood sugar checks. 1 month supply., # 3 EA, 11 Refill(s), Pharmacy: [id number], 193, cm, 04/16/24 15:08:00 EDT, Height, 106.8, kg, 04/16/24 15:08:00 EDT, Dosing Weight Start Date: 04/16/24 Status: Ordered Quantity: 3.0 Unit: EA Repeat number: 12 Start: 04-16-2024 Dexcom G6 Sens or See Instructions, Place one sensor to the abdomen every 10 days. Use reader or phone efe for daily blood sugar checks. 1 month supply., # 3 EA, 11 Refill(s), Pharmacy: [id number], 193, cm, 04/16/24 15:08:00 EDT, Height, 106.8, kg, 04/16/24 15:08:00 EDT, Dosing Weight Start Date: 04/16/24 Status: Ordered DEXCOM G6 SENSOR MIS (2 sources) Start: 04-16-2024 DEXCOM G6 SENS OR MIS DEXCOM G6 SENSOR MIS, APPLY AND REPLACE SENSOR TOPICALLY EVERY 10 DAYS Start Date: 04/16/24 Status: Ordered Repeat number: 1 Start: 04-16-2024 DEXCOM G6 SENS OR MIS DEXCOM G6 SENSOR MIS, APPLY AND REPLACE SENSOR TOPICALLY EVERY 10 DAYS Start Date: 04/16/24 Status: Ordered Dexcom G6 Transmit Mis Dexc (2 sources) Start: 04-16-2024 Dexcom G6 Gaytan jennifer Mis Dexc Dexcom G6 Transmit Mis Dexc, APPLY NEW TRANSMITTER EVERY 90 DAYS - CLEAN TRANSMITTER WITH AN ALCOHOL SWAB WITH EACH SENSOR CHANGE Start Date: 04/16/24 Status: Ordered Repeat number: 1 Start: 04-16-2024 Dexcom G6 Gaytan jennifer Mis Dexc Dexcom G6 Transmit Mis Dexc, APPLY NEW TRANSMITTER EVERY 90 DAYS - CLEAN TRANSMITTER WITH AN ALCOHOL SWAB WITH EACH SENSOR CHANGE Start Date: 04/16/24 Status: Ordered Dexcom G6 Transmitter (2 sources) Start: 04-16-2024 Dexcom G6 Gaytan smitter See Instructions, Place transmitter into each new sensor every 10 days. Transmitter is reusable for 90 days. 3 month supply., # 3 EA, 3 Refill(s), Pharmacy: [id number], 193, cm, 04/16/24 15:08:00 EDT, Height, 106.8, kg, 04/16/24 15:08:00 EDT, Dosing Weight Start Date: 04/16/24 Status: Ordered Quantity: 3.0 Unit: EA Repeat number: 4 Start: 04-16-2024 Dexcom G6 Gaytan smitter See Instructions, Place transmitter into each new sensor every 10 days. Transmitter is reusable for 90 days. 3 month supply., # 3 EA, 3 Refill(s), Pharmacy: [id number], 193, cm, 04/16/24 15:08:00 EDT, Height, 106.8, kg, 04/16/24 15:08:00 EDT, Dosing Weight Start Date: 04/16/24 Status: Ordered Dexcom G7 Sensor (5 sources) Start: 06-22-2024 Dexcom G7 Sens or See Instructions, Place once sensor to the back of the upper arm every 10 days. Use reader or phone efe for daily blood sugar checks. 1 month supply., # 3 EA, 11 Refill(s), Pharmacy: [facility] #[id number], 193, cm, 05/29/24 11:06:00 EST, Height, 102.27, kg, 05/29/24 11:06:00 EST, Dosing Weight Start Date: 06/22/24 Status: Ordered Quantity: 3.0 Unit: EA Repeat number: 12 Start: 02-01-2024 Dexcom G7 Sens or See Instructions, Place once sensor to the back of the upper arm every 10 days. Use reader or phone efe for daily blood sugar checks. 1 month supply., # 3 EA, 1 Refill(s), Pharmacy: [facility] #[id number], 193, cm, 01/05/24 4:08:00 EDT, Height, 94, kg, 02/01/24 12:55:00 EDT, Dosing Weight Start Date: 02/01/24 Status: Ordered DEXCOM G7 SENSOR xenia (20 sources) Start: 01-24-2025 DEXCOM G7 SENSOR xenia 01/24/2025 Active doxycycline hyclate 100 mg oral tablet (19 sources) Tetracycline-class Drug Start: 02-03-2022 End: 05-06-2023 take 1 tablet by mouth in the morning doxycycline (Vibra-Tabs) 100 MG tablet Take 100 mg by mouth in the morning and 100 mg before bedtime. 0 02/09/2022 Active Comment on above: Take 1 tablet by tere th twice daily. Take 1 tablet by tere twice daily for 5 days. DULoxetine 30 mg delayed release oral capsule (20 sources) Serotonin and Norepinephrine Reuptake Inhibitor Start: 08-14-2020 End: 04-11-2025 take 1 capsule by mouth once daily DULoxetine (CYMBALTA) 30 mg capsule Indications: Mixed anxiety and depressive disorder Take 1 capsule by mouth once daily. 90 capsule 3 11/24/2023 Active Comment on above: Take 30 mg by mouth once daily. Take 1 capsule by mo ut once daily. ergocalciferol 1.25 mg oral capsule (2 sources) Provitamin D2 Compound take 1 capsule by mouth every week ergocalciferol (Vitamin D2) 1.25 MG (75597 UT) capsule Take 1.25 mg by mouth 1 (one) time per week. Active escitalopram 20 mg oral tablet (20 sources) Serotonin Reuptake Inhibitor Start: 08-02-2018 End: 04-11-2025 take 1 tablet by mouth once daily escitalopram oxalate (LEXAPRO) 20 mg tablet Indications: Mixed anxiety and depressive disorder Take 1 tablet by mouth once daily. 90 tablet 3 11/24/2023 Active Comment on above: Take 1 tablet by tere th once daily. ferrous sulfate 325 mg oral tablet (20 sources) Start: 01-21-2025 ferrous sulfate 325 mg (65 mg iron) tablet Indications: Iron deficiency anemia secondary to inadequate dietary iron intake Take iron daily with vitamin C to increase absorption. 90 tablet 3 01/21/2025 Active Start: 01-21-2025 take 1 tablet by tere th once daily Ferrous Sulfate (Ferosul) 325 mg (65 mg iron) tablet Active mg PO daily March 15, 2025 12:00am FeroSul 325 mg ( 65 mg iron) tablet Take iron daily with vitamin C to increase absorption. active Caterina Larson AT [facility] fluticasone propionate 0.05 mg/actuat metered dose nasal spray (20 sources) Corticosteroid Start: 04-16-2024 End: 04-11-2025 take 50 ug nasal route once daily fluticasone proprionate NASAL 50 mcg/ spray 50 mcg Dose = 1 spray(s), Nostril, each, qDay, # 15.8 mL, 3 Refill(s), Pharmacy: [id number], 193, cm, 04/16/24 15:08:00 EDT, Height, kg, 04/16/24 15:08:00 EDT, Dosing Weight Start Date: 04/16/24 Stop Date: 04/11/25 Status: Ordered Quantity: 15.8 Unit: mL Repeat number: 4 Start: 07-22-2021 fluticasone (F lonase) 50 MCG/ACT nasal spray Administer 1 spray into affected nostril(s). 07/22/2021 Active Start: 07-22-2021 End: 12-20-2024 fluticasone (FLONASE) 50 mcg/actuation nasal spray Use 1 [place] in the nose once daily as needed. 07/22/2021 12/20/2024 Discontinued (Other) Start: 07-22-2021 take 1 dose nasal ro [place] once daily fluticasone proprionate NASAL 50 mcg/ spray Dose = 1 spray(s), Nostril, each, qDay Start Date: 07/22/21 Status: Ordered Start: 12-22-2020 Fluticasone pr opionate (FLONASE) 50 MCG/ACT nasal spray Indications: Middle ear effusion, bilateral 1 spray by Each Nare route daily. 16 g 12 12/22/2020 Active Comment on above: Use 1 [place] in the n ose once daily as needed. 60 actuat fluticasone propionate 0.5 mg/actuat / salmeterol 0.05 mg/actuat dry powder inhaler (9 sources) Corticosteroid, beta2-Adrenergic Agonist Start: 021 take 1 puff(s) by inhalation twice daily Fluticasone-Salmeter ol (ADVAIR DISKUS) 500-50 MCG/DOSE diskus inhaler Indications: Shortness of breath Inhale 1 puff into the lungs two times a day. 60 each 5 11/06/2020 Active 30 actuat fluticasone furoate 0.2 mg/actuat / vilanterol 0.025 mg/actuat dry powder inhaler (1 source) Corticosteroid, beta2-Adrenergic Agonist Start: 023 End: 023 fluticasone-vilanter ol (BREO ELLIPTA) 200-25 mcg/dose inhaler Indications: Moderate persistent asthma, uncomplicated Inhale 1 Inhalation as instructed once daily. 180 Each 1 12/02/2022 12/10/2022 Discontinued (Course of therapy completed) Comment on above: Inhale 1 Inhalation as instructed once daily. fluticasone proprionate NASAL 50 mcg/ spray (1 source) Start: 022 take 1 dose nasal route once daily fluticasone proprionate NASAL 50 mcg/ spray Dose = 1 spray(s), Nostril, each, qDay Start Date: 07/22/21 Status: Ordered Humalog U-100 Insulin 100 unit/mL solution (1 source) Start: 017 Humalog U-100 Insulin 100 unit/mL solution 16-24 unit four times a day as directed active Aga Puri AT [facility] hydrocortisone 10 mg/ml topical lotion (3 sources) Corticosteroid Start: 018 hydrocortisone 1 % lotion Indications: Dermatitis Apply topically 2 times daily. 1 Bottle 0 05/29/2018 Active hydrocortisone 10 mg/ml / neomycin 3.5 mg/ml / polymyxin b 76287 unt/ml otic suspension (6 sources) Aminoglycoside Antibacterial, Polymyxin-class Antibacterial, Corticosteroid Start: 021 [id number] ydrocortisone (CORTISPORIN) 3.5-46077-5 otic suspension Indications: Acute otitis externa of left ear, unspecified type Place 3 drops into the left ear 3 times daily. 10 mL 0 10/17/2020 Active ibuprofen 800 mg oral tablet (20 sources) Nonsteroidal Anti-inflammatory Drug Start: 024 End: 025 ibuprofen 800 mg oral tablet Dose : 800 mg = 1 tab(s), Oral, q6h, PRN as needed for pain, X 90 day(s), # 336 tab(s), 0 Refill(s), 07/15/24 4:22:00 PM EST, Pharmacy: Replaced By [id number], 193, cm, 04/16/24 15:08:00 EDT, Height, kg, 04/16/24 15:08:00 EDT, Dosing Weight Start Date: 04/16/24 Stop Date: 07/15/24 Status: Ordered Start: 09-18-2021 End: 05-06-2023 ibuprofen 600 MG tablet Start: 07-22-2021 ibuprofen 800 mg oral tablet Dose : 800 mg = 1 tab(s), Oral, q6h, PRN as needed for pain Start Date: 07/22/21 Status: Ordered Start: 09-29-2020 take 1 tablet by tere th every six hours as needed for pain ibuprofen (ADVIL,MOTRIN) 800 MG tablet Indications: Sebaceous cyst Take 1 tablet by mouth every 6 hours as needed for Pain. 90 tablet 1 09/29/2020 Active Start: 05-10-2019 take 1 tablet by tere th every six hours as needed for pain ibuprofen (ADVIL;MOTRIN) 600 MG tablet Take 1 tablet by mouth every 6 hours as needed for Pain or Fever 20 tablet 0 05/10/2019 Active Start: 04-04-2019 End: 12-31-2024 take 1 tablet by mouth every eight hours as needed for pain ibuprofen 800 MG tablet Take 1 tablet (800 mg) by mouth every 8 hours as needed for moderate pain (4-6). 90 tablet 3 05/06/2023 Active Start: 12-25-2018 End: 05-10-2019 take 1 tablet by mouth every six hours ibuprofen (ADVIL;MOTRIN) 400 MG tablet Take 1 tablet by mouth every 6 hours 120 tablet 0 12/25/2018 05/10/2019 Discontinued Comment on above: Take 1 tablet by tere th every 8 hours as needed for Pain. Take with food. Take 1 tablet by tere th every 8 hours as needed for pain or fever (specify). insulin lispro 100 unt/ml injectable solution (20 sources) Insulin Analog Start: 03-15-2025 Insulin Lispro 100 unit/mL solution Active SC March 15, 2025 12:00am Start: 12-31-2024 insulin lispro (HUMALOG U-100 INSULIN) 100 unit/mL injection Indications: Type 1 diabetes mellitus with hyperglycemia (HCC) , Type 1 diabetes mellitus with diabetic polyneuropathy (HCC) , Insulin pump status Continue insulin pump with home settings Home pump settings: Medtronic 780G, Humalog Basal Rate: 00:00 = 1.25 units/hr 4:00 = 1.30 units/hr 7:00 = 1.50 units/hr 11:00 = 1.60 units/hr 18:00 = 1.40 units/hr 23:00 = 1.20 units/hr Insulin:Carbohydrate ratio: 00:00 1 units per 8.5 g carbohydrate 17:00 1 units per 7 g carbohydrate Correction bolus: 1 unit insulin lowers glucose 35 mg/dL, correct to a target blood glucose of 110-130 mg/dL 12/31/2024 Active Start: 05-18-2024 End: 11-09-2025 HumaLOG 100 units/mL injecta ble solution VIAL Sliding Scale, Subcutaneous, achs, 125 units daily via insulin pump, # 15 mL, 5 Refill(s), Pharmacy: [id number], 193, cm, 04/16/24 15:08:00 EDT, Height, kg, 04/16/24 15:08:00 EDT, Dosing Weight, 125, mL Start Date: 05/18/24 Stop Date: 11/09/25 Status: Ordered Quantity: 15.0 Unit: mL Repeat number: 6 Start: 04-16-2024 End: 04-11-2025 inject 125 [IU] by subcutaneous injection once daily at bedtime HumaLOG 100 units/mL injectable solution VIAL Sliding Scale, Subcutaneous, achs, 125 units daily via insulin pump, # 15 mL, 3 Refill(s), Pharmacy: [id number], 193, cm, 04/16/24 15:08:00 EDT, Height, kg, 04/16/24 15:08:00 EDT, Dosing Weight, 125, mL Start Date: 04/16/24 Stop Date: 04/11/25 Status: Ordered Start: 03-27-2024 inject 125 [IU] by subcutaneous injection once daily at bedtime HumaLOG 100 units/mL injectable solution VIAL Sliding Scale, Subcutaneous, achs, 125 units daily via insulin pump, # 30 mL, 3 Refill(s), Pharmacy: [id number], 193, cm, 01/05/24 4:08:00 EDT, Height, kg, 02/01/24 12:55:00 EDT, Dosing Weight, 125, mL Start Date: 03/27/24 Status: Ordered Start: 02-28-2023 End: 12-31-2024 insulin lispro (HUMALOG U-10 0 INSULIN) 100 unit/mL injection Indications: Type 1 diabetes mellitus with hyperglycemia (HCC) , Type 1 diabetes mellitus with diabetic polyneuropathy (HCC) , Insulin pump status Inject up to 90 units per day via insulin pump. 90 mL 1 02/28/2023 12/31/2024 Discontinued Start: 01-21-2023 End: 02-28-2023 insulin lispro (HUMALOG U-10 0 INSULIN) 100 unit/mL injection Indications: Type 1 diabetes mellitus with hyperglycemia (HCC) , Type 1 diabetes mellitus with diabetic polyneuropathy (HCC) , Insulin pump status Inject up to 80 units per day via insulin pump. 80 mL 0 01/21/2023 02/28/2023 Discontinued Start: 12-17-2022 End: 12-24-2022 insulin lispro (HUMALOG U-10 0 INSULIN) 100 unit/mL injection Indications: Type 1 diabetes mellitus with diabetic polyneuropathy (HCC) , Insulin pump status Inject up to 80 units per day via insulin pump. 80 mL 0 12/24/2022 Active Start: 08-20-2021 inject 125 [IU] by subcutaneous injection once daily at bedtime HumaLOG 100 units/mL injectable solution VIAL Sliding Scale, Subcutaneous, achs, 125 units daily via insulin pump, # 30 mL, 3 Refill(s), Pharmacy: [facility], 193, cm, 08/10/21 12:32:00 EST, Height, kg, 08/10/21 12:32:00 EST, Dosing Weight, 125, mL Start Date: 08/20/21 Status: Ordered Start: 07-18-2021 insulin lispro (HUMALOG) 100 UNIT/ML injection vial INJECT 125 UNITS EVERY DAY VIA PUMP ACCORDING TO SLIDING SCALE 0 07/18/2021 Active Start: 03-31-2021 insulin lispro (HUMALOG,ADMELOG) 100 UNIT/ML injection (vial) Indications: Type 1 diabetes mellitus with hyperglycemia (HCC) 125 units daily per insulin pump according to blood sugar correction scale. 300 mL 5 03/31/2021 Active Start: 10-17-2020 insulin lispro (HUMALOG,ADMELOG) 100 UNIT/ML injection (vial) Indications: Type 1 diabetes mellitus with hyperglycemia (HCC) 100 units daily per insulin pump according to blood sugar correction scale. 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 Inject up to 90 unit s per day via insulin pump. insulin lispro (HumaLOG) 100 UNIT/ML injection (16 sources) Start: 06-01-2022 insulin lispro (HumaLOG) 100 UNIT/ML injection Indications: Type 1 diabetes mellitus without complication (HCC) Inject insulin continuous via Insulin Pump. Strength: 100 UNIT/ML 10 mL 3 06/01/2022 Active Start: 06-01-2022 insulin lispro (HumaLOG) 100 UNIT/ML injection Indications: Type 1 diabetes mellitus without complication (CMS/HCC) ([facility]) Inject insulin continuous via Insulin Pump. Strength: 100 UNIT/ML 10 mL 3 06/01/2022 Active insulin lispro (Humalog) 100 units/mL injectable solution (1 source) Start: 07-22-2021 insulin lispro (Humalog) 100 units/mL injectable solution insulin pump, Subcutaneous, VIAL Start Date: 07/22/21 Status: Ordered ketoconazole 20 mg/ml topical cream (10 sources) Azole Antifungal Start: 04-30-2021 ketoconazole (NIZORAL) 2 % cream Indications: Medication monitoring encounter Apply to eczema 15 g 0 04/30/2021 Active Start: 10-17-2020 ketoconazole ( NIZORAL) 2 % cream Indications: Eczema, unspecified type Apply to eczema 15 g 0 10/17/2020 Active lactulose 667 mg/ml oral solution (1 source) Osmotic Laxative Start: 02-10-2024 End: 03-11-2024 take 30 mL by mouth three times daily lactulose 10 gram/15 mL solution Take 30 mL by mouth three times a day. 2700 mL 3 02/10/2024 03/11/2024 Active levoFLOXacin 5 mg/ml ophthalmic solution (2 sources) Quinolone Antimicrobial Start: 05-08-2019 End: 05-15-2019 take 2 drop(s) into the eye(s) every two hours, then take 1-2 drop(s) into the eye(s) every two hours, then take 1-2 drop(s) into the eye(s) every six hours levofloxacin (QUIXIN) 0.5 % ophthalmic solution Place 2 drops into both eyes every [address] 1-2 drops bilateral eyes every 2 hours for 2 days, then Place 1-2 drops bilateral eyes every 6 hours for 5 days 1 Bottle 0 05/08/2019 05/15/2019 Active levothyroxine sodium 0.15 mg oral tablet (20 sources) l-Thyroxine Start: 01-10-2025 take 1 tablet by mouth once daily before breakfast levothyroxine (SYNTHROID) 150 mcg tablet Take 1 tablet by mouth daily before breakfast. 01/10/2025 Active Start: 04-16-2024 End: 04-11-2025 levothyroxine 150 mcg (0.15 mg) oral tablet Dose : 150 mcg = 1 tab(s), Oral, qDay, # 90 tab(s), 3 Refill(s), Pharmacy: [id number], 193, cm, 04/16/24 15:08:00 EDT, Height, kg, 04/16/24 15:08:00 EDT, Dosing Weight Start Date: 04/16/24 Stop Date: 04/11/25 Status: Ordered Quantity: 90.0 Unit: tab(s) Repeat number: 4 Start: 01-03-2024 End: 01-10-2025 take 1 tablet by mouth once daily in the morning levothyroxine (SYNTHROID) 175 mcg tablet Take 1 tablet by mouth daily at 6 am. 30 tablet 3 02/11/2024 12/27/2024 Discontinued (Dosage adjustment) Start: 06-01-2022 take 1 tablet by tere th once daily in the morning levothyroxine (Synthroid, Levoxyl) 125 MCG tablet TAKE ONE TABLET BY MOUTH EVERY MORNING ON EMPTY STOMACH Strength: 125 mcg 90 tablet 1 06/01/2022 Active Start: 07-22-2021 levothyroxine 150 mcg (0.15 mg) oral tablet Dose : 150 mcg = 1 tab(s), Oral, qDay Start Date: 07/22/21 Status: Ordered Start: 12-19-2020 take 1 tablet by tere th once daily before breakfast Levothyroxine 137 MCG tablet Indications: Acquired hypothyroidism Take 1 tablet by mouth every morning (before breakfast). 30 tablet 11 12/19/2020 Active Start: 10-06-2020 take 1 capsule by mo uth once daily Levothyroxine Sodium 125 MCG CAPS Indications: Acquired hypothyroidism Take 1 capsule by mouth daily. 30 capsule 2 10/06/2020 Active Start: 04-04-2019 End: 12-31-2021 take 1 tablet by mouth once daily for thyroid dysfunction levothyroxine (LEVOXYL) 125 mcg tablet Take 1 tablet by mouth once daily. Take on empty stomach. For thyroid. 90 tablet 0 04/04/2019 12/31/2021 Discontinued Start: 12-26-2018 take 1 tablet by tere th once daily levothyroxine (SYNTHROID) 112 MCG tablet Take 1 tablet by mouth Daily 5 tablet 0 12/26/2018 Active Start: 04-25-2017 End: 01-03-2024 take 1 tablet by mouth once daily before breakfast levothyroxine (SYNTHROID) 150 mcg tablet Take 1 tablet by mouth daily before breakfast. 01/10/2025 Active Comment on above: Take 1 tablet by tere th once daily. Take on empty stomach. For thyroid. Take 150 mcg by mout h once daily. Take 1 tablet by tere th once daily. loratadine 10 mg oral tablet (20 sources) Start: 12-14-2021 End: 12-20-2024 take 1 tablet by mouth once daily Loratadine (Allergy Relief (Loratadine)) 10 mg tablet Active 10 mg PO DAILY March 20, 2023 12:00am Start: 04-30-2021 take 1 tablet by tere th once daily loratadine (CLARITIN) 10 MG tablet Indications: Medication monitoring encounter Take 1 tablet by mouth daily. 30 tablet 2 04/30/2021 Active Start: 01-15-2021 take 1 tablet by tere th once daily loratadine (CLARITIN) 10 MG tablet Indications: Acute otitis externa of left ear, unspecified type Take 1 tablet by mouth daily. 30 tablet 2 01/15/2021 Active Start: 10-17-2020 take 1 tablet by tere th once daily loratadine (CLARITIN) 10 MG tablet Indications: Acute otitis externa of left ear, unspecified type Take 1 tablet by mouth daily. 30 tablet 2 10/17/2020 Active Comment on above: Take 10 mg by mouth once daily. melatonin 5 mg oral tablet (11 sources) Start: 01-20-2021 take 2 tablets by mouth at bedtime melatonin 5 MG TABS TAKE TWO TABLETS BY MOUTH AT BEDTIME 60 tablet 1 01/20/2021 Active Start: 12-17-2020 take 2 tablets by mo vah at bedtime melatonin 5 MG TABS TAKE TWO TABLETS BY MOUTH AT BEDTIME 60 tablet 1 12/17/2020 Active take 1 tablet by tere th once daily Melatonin 10 MG TABS Take 1 tablet by mouth nightly. 0 Active nicotine 2 mg oral lozenge (20 sources) Cholinergic Nicotinic Agonist Start: 07-17-2024 End: 07-31-2024 nicotine 2 mg oral transmucosal lozenge 2 mg Dose = 1 lozenge(s), Transmucosal, q1h, PRN as needed for smoking cessation, X 14 day(s), # 336 lozenge(s), 0 Refill(s), Pharmacy: [id number], Nicotine dependence, 193, cm, 07/17/24 9:57:00 EST, Height, kg, 07/17/24 9:57:00 EST, Dosing Weight Start Date: 07/17/24 Stop Date: 07/31/24 Status: Ordered Quantity: 336.0 Unit: lozenge(s) Repeat number: 1 Indication: Nicotine dependence, unspecified, uncomplicated Start: 09-16-2021 End: 07-21-2022 take 1 dose by mouth every two hours as needed nicotine, polacrilex, 4 mg lzmn Take 1 Each by mouth every 2 hours as needed. 0 09/16/2021 07/21/2022 Discontinued (Other) Start: 04-30-2021 nicotine polac rilex (NICOTINE MINI) 4 MG lozenge Indications: Tobacco abuse disorder Take 1 lozenge by mouth every 2 hours as needed for Smoking cessation. 100 lozenge 2 04/30/2021 Active Start: 11-06-2020 nicotine polac rilex (GNP NICOTINE MINI) 2 MG lozenge Indications: Tobacco abuse disorder , Encounter for smoking cessation counseling Place 1 lozenge inside cheek as needed for Smoking cessation. 100 tablet 0 11/06/2020 Active Start: 10-06-2020 take 1 tablet by tere th every twenty-four hours as needed nicotine polacrilex (NICOTINE MINI) 4 MG lozenge Indications: Tobacco abuse disorder Take 1 lozenge by mouth as needed for Smoking cessation. Do not exceed 12 pieces in 24 hours. 100 tablet 5 10/06/2020 Active Start: 07-19-2019 nicotine polac rilex (COMMIT) 2 MG lozenge DISSOLVE ONE lozenges FOR smoking cessation NEEDED. max 20 in 24 hours 100 each 6 07/19/2019 Active Start: 05-29-2018 End: 05-08-2019 nicotine polacrilex (NICORET TE MINI) 2 MG lozenge Take 1 lozenge by mouth as needed for Smoking cessation 30 each 0 12/25/2018 05/08/2019 Discontinued (LIST CLEANUP) Comment on above: Take 1 Each by mouth every 2 hours as needed. ofloxacin 3 mg/ml ophthalmic solution (3 sources) Quinolone Antimicrobial Start: 1 take 1 drop(s) into the eye(s) four times daily ofloxacin (OCUFLOX) 0.3 % ophthalmic solution Indications: H/O chronic ear infection Place 1 drop into the left ear 4 times daily. 5 mL 0 12/22/2020 Active OMNIPOD 5 G6 INTRO KIT, GEN 5, crtg (18 sources) Start: 3 End: OMNIPOD 5 G6 INTRO KIT, GEN 5, crtg Indications: Type 1 diabetes mellitus with hyperglycemia (HCC) Change pod every 48 hours. 1 Each 0 02/07/2023 03/09/2023 Active Start: 01-21-2023 End: 02-07-2023 OMNIPOD 5 G6 INTRO KIT, GEN 5, crtg Indications: Type 1 diabetes mellitus with hyperglycemia (HCC) Change pod every 48 hours. 1 Each 0 01/21/2023 02/07/2023 Discontinued Start: 01-21-2023 End: 02-20-2023 OMNIPOD 5 G6 INTRO KIT, GEN 5, crtg Indications: Type 1 diabetes mellitus with hyperglycemia (HCC) Change pod every 48 hours. 1 Each 0 01/21/2023 02/20/2023 Active Comment on above: Change pod every 48 hours. Ostomy Supplies (Skin Tac Adhesive Barrier Wipe) misc (16 sources) Start: 06-23-20 22 Ostomy Supplies (Skin Tac Adhesive Barrier Wipe) misc 1 each every 14 (fourteen) days. 50 each 3 06/23/2022 Active perflutren lipid microspheres 1.3 mL in NaCl (PF) 0.9% 10 mL injection (DEFINITY) (20 sources) Start: 01-30-20 End: 04-30-20 23 perflutren lipid microspheres 1.3 mL in NaCl (PF) 0.9% 10 mL injection (DEFINITY) phenazopyridine hydrochloride 200 mg delayed release oral tablet (2 sources) Start: 12-11-19 21 take 1 tablet by mouth three times daily as needed for pain phenazopyridine (PYRIDIUM) 200 MG tablet Indications: Dysuria Take 1 tablet by mouth 3 times daily as needed for Pain. 10 tablet 0 12/10/2020 Active rosuvastatin calcium 10 mg oral tablet (20 sources) HMG-CoA Reductase Inhibitor Start: 12-09-19 End: 03-26-20 take 1 tablet by mouth once daily at bedtime rosuvastatin (CRESTOR) 10 mg tablet Indications: Type 1 diabetes mellitus with diabetic polyneuropathy (HCC) Take 1 tablet by mouth daily at bedtime. 90 tablet 3 03/26/2025 03/26/2026 Active Start: 01-19-2021 End: 04-11-2025 take 1 tablet by mouth once daily Rosuvastatin (Crestor) 5 mg tablet Active 5 mg PO DAILY March 20, 2023 12:00am Comment on above: Take 5 mg by mouth d aily at bedtime. Take 1 tablet by tere th daily at bedtime. sodium chloride flush 0.9 % injection 3 mL (2 sources) Start: 10-20-2021 sodium chloride flush 0.9 % injection 3 mL Start: 05-10-2019 sodium chlorid e flush 0.9 % injection 3 mL sulfamethoxazole 800 mg / trimethoprim 160 mg oral tablet (3 sources) Dihydrofolate Reductase Inhibitor Antibacterial, Sulfonamide Antimicrobial Start: 04-11-2024 End: 04-16-2024 take 1 tablet by mouth every twelve hours Bactrim DS 800 mg-160 mg oral tablet Dose = 1 tab(s), Oral, q12h, X 5 day(s), # 10 tab(s), 0 Refill(s), 98.6 Start Date: 04/11/24 Stop Date: 04/16/24 Status: Ordered Start: 12-01-2020 End: 12-15-2020 take 1 tablet by mouth twice daily sulfamethoxazole-trimethoprim (BACTRIM D S) 800-160 MG per tablet Indications: Acute cystitis with hematuria Take 1 tablet by mouth two times a day for 14 days. 28 tablet 0 12/01/2020 12/15/2020 Active Start: 05-10-2019 End: 05-20-2019 take 1 tablet by mouth twice daily sulfamethoxazole-trimethoprim (BACTRIM D S) 800-160 MG per tablet Take 1 tablet by mouth 2 times daily for 10 days 20 tablet 0 05/10/2019 05/20/2019 Active tamsulosin hydrochloride 0.4 mg oral capsule (4 sources) alpha-Adrenergic Leodan Start: 12-18-2020 take 1 capsule by mouth once daily Tamsulosin HCl (FLOMAX) 0.4 MG 24 hr capsule Indications: Acute cystitis with hematuria TAKE 1 CAPSULE BY MOUTH DAILY. 30 capsule 1 12/18/2020 Active Start: 11-27-2020 take 1 capsule by mo ut once daily Tamsulosin HCl (FLOMAX) 0.4 MG 24 hr capsule Indications: Acute cystitis with hematuria Take 1 capsule by mouth daily. 30 capsule 0 11/27/2020 Active traZODone hydrochloride 100 mg oral tablet (20 sources) Serotonin Reuptake Inhibitor Start: 07-17-2024 End: 03-26-2025 take 1 tablet by mouth once daily at bedtime traZODone (DESYREL) 100 mg tablet Take 1 tablet by mouth daily at bedtime. 90 tablet 3 03/26/2025 Active Start: 04-16-2024 End: 10-13-2024 traZODone 50 mg oral tablet Dose : 50 mg = 1 tab(s), Oral, qHS, # 90 tab(s), 1 Refill(s), Pharmacy: [id number], 193, cm, 04/16/24 15:08:00 EDT, Height, kg, 04/16/24 15:08:00 EDT, Dosing Weight Start Date: 04/16/24 Stop Date: 10/13/24 Status: Ordered triamcinolone acetonide 1 mg/ml topical cream (20 sources) Corticosteroid Start: 01-20-2022 triamcinolone (Kenalog) 0.1 % cream 01/20/2022 Active Start: 03-27-2019 End: 12-31-2021 triamcinolone acetonide (NISA ALOG) 0.1 % cream Indications: Dermatitis Apply 1 application to affected area three times daily. 60 g 0 03/27/2019 12/31/2021 Discontinued (Other) Comment on above: Apply 1 application to affected area three times daily. 30 actuat umeclidinium 0.0625 mg/actuat / vilanterol 0.025 mg/actuat dry powder inhaler (20 sources) Anticholinergic, beta2-Adrenergic Agonist Start: 03-04-20 take 1 dose by inhalation once daily umeclidinium-vilan terol (ANORO ELLIPTA) 62.5-25 mcg/actuation inhaler Indications: Simple chronic bronchitis (HCC) , History of asthma , Shortness of breath Inhale 1 inhalation as instructed once daily. 45 each 3 03/04/2025 Active Start: 11-24-2023 End: 12-20-2024 take 1 dose by inhalation once daily umeclidinium-vilanterol (ANORO ELLIPTA) 62.5-25 mcg/actuation inhaler Indications: Simple chronic bronchitis (HCC) Inhale 1 Inhalation as instructed once daily. 180 Each 3 11/24/2023 12/20/2024 Discontinued (Other) Start: 08-16-2023 End: 11-24-2023 take 1 puff(s) by mouth once daily ANORO ELLIPTA 62.5-25 mcg/actuation inhaler Indications: Simple chronic bronchitis (HCC) , History of asthma , Shortness of breath inhale 1 puff by mouth once daily as directed 3 Each 3 08/16/2023 11/24/2023 Discontinued Start: 07-04-2023 End: 08-16-2023 take 1 dose by inhalation once daily umeclidinium-vilanterol (ANORO ELLIPTA) 62.5-25 mcg/actuation inhaler Indications: Simple chronic bronchitis (HCC) , History of asthma , Shortness of breath Inhale 1 Inhalation as instructed once daily. 180 Each 0 07/04/2023 08/16/2023 Discontinued Start: 12-10-2022 End: 02-21-2023 take 1 dose by inhalation once daily umeclidinium-vilanterol (ANORO ELLIPTA) 62.5-25 mcg/actuation inhaler Indications: Simple chronic bronchitis (HCC) , History of asthma , Shortness of breath Inhale 1 Inhalation as instructed once daily. 3 Each 3 02/21/2023 Active Comment on above: Inhale 1 Inhalation as instructed once daily. inhale 1 puff by tere th once daily as directed Vitamin C tablet (ascorbic acid (vitamin c)) (1 source) Vitamin D3 50 mcg (2000 intl units) oral capsule (1 source) Start: 2024 Vitamin D3 50 mcg (2000 intl units) oral capsule Dose : 50 mcg = 1 cap(s), Oral, qDay, # 90 cap(s), 3 Refill(s), Pharmacy: [facility] #[id number], 193, cm, 04/16/24 15:08:00 EDT, Height, kg, 04/16/24 15:08:00 EDT, Dosing Weight Start Date: 04/27/24 Status: Ordered Quantity: 90.0 Unit: cap(s) Repeat number: 4 Vitamin D3 tablet (cholecalciferol (vitamin d3)) (1 source) warfarin sodium 5 mg oral tablet (20 sources) Vitamin K Antagonist Start: 12-31-2024 End: 03-06-2025 warfarin (COUMADIN) 5 mg tablet Indications: long term current use of anticoagulant therapy , Nonrheumatic aortic valve stenosis , S/P AVR (aortic valve replacement) Take 7.5 mg (one and a half tablets) on Tuesday only. All the rest of the days, take one tablet (5 mg) daily. 30 tablet 5 03/06/2025 Active Completed/Discontinued Medications Medication Drug Class(es) Dates Sig (Normalized) Sig (Original) acetaminophen 325 mg / HYDROcodone bitartrate 5 mg oral tablet (15 sources) Opioid Agonist Start: 02-09-2022 End: 02-23-2022 take 1 tablet by mouth every eight hours as needed for pain HYDROcodone-acetami nophen (NORCO) 5-325 mg per tablet Indications: Post-op pain Take 1 tablet by mouth every 8 hours as needed for pain for up to 7 days. 21 tablet 0 02/09/2022 02/18/2022 Discontinued Start: 01-30-2022 End: 02-09-2022 take 1 tablet by mouth every four hours as needed for pain HYDROcodone-acetaminophen (NORCO) 5-325 mg per tablet Indications: Post-op pain Take 1 tablet by mouth every 4 hours as needed (for severe or breakthrough pain. Wean off medication by increasing time between doses.). 40 tablet 0 02/09/2022 02/09/2022 Discontinued Comment on above: Take 1 tablet by tere th every 4 hours as needed (for severe or breakthrough pain. Wean off medication by increasing time between doses.). Take 1 tablet by tere th every 8 hours as needed for pain for up to 7 days. Take 1 tablet by tere th every 8 hours as needed for pain for up to 5 days. amoxicillin 500 mg oral capsule (13 sources) Penicillin-class Antibacterial Start: 12-04-2024 End: 12-20-2024 amoxicillin (AMOXIL) 500 mg capsule Take 4 capsules one hour before your appointment. 4 capsule 12/04/2024 12/20/2024 Discontinued (Other) Start: 07-17-2024 End: 07-27-2024 amoxicillin 875 mg oral tabl et Dose : 875 mg = 1 tab(s), Oral, BID, X 10 day(s), # 20 tab(s), 0 Refill(s), 07/27/24 10:46:00 AM EST, Pharmacy: [facility] #[id number], Dental caries, 193, cm, 07/17/24 9:57:00 EST, Height, kg, 07/17/24 9:57:00 EST, Dosing Weight Start Date: 07/17/24 Stop Date: 07/27/24 Status: Ordered Quantity: 20.0 Unit: tab(s) Repeat number: 1 Indication: Dental caries, unspecified Start: 07-12-2022 End: 07-17-2022 take 1 tablet by mouth twice daily amoxicillin (AMOXIL) 875 mg tablet Indications: Dental infection Take 1 tablet by mouth twice daily for 5 days. 10 tablet 0 07/12/2022 07/17/2022 Active Comment on above: Take 1 tablet by tere th twice daily for 5 days. Anoro Ellipta 62.5 mcg-25 mcg/inh inhalation powder (2 sources) Start: 04-16-2024 End: 10-13-2024 take 1 puff(s) by mouth once daily Anoro Ellipta 62.5 mcg-25 mcg/inh inhalation powder Dose = 1 puff(s), Inhalation, qDay, INHALE 1 PUFF BY MOUTH ONCE DAILY DIRECTED, # 3 EA, 1 Refill(s), Pharmacy: [id number], 193, cm, 04/16/24 15:08:00 EDT, Height, kg, 04/16/24 15:08:00 EDT, Dosing Weight Start Date: 04/16/24 Stop Date: 10/13/24 Status: Ordered Quantity: 3.0 Unit: EA Repeat number: 2 Start: 04-16-2024 End: 10-13-2024 take 1 puff(s) by mouth once daily Anoro Ellipta 62.5 mcg-25 mcg/inh inhalation powder Dose = 1 puff(s), Inhalation, qDay, INHALE 1 PUFF BY MOUTH ONCE DAILY DIRECTED, # 3 EA, 1 Refill(s), Pharmacy: [id number], 193, cm, 04/16/24 15:08:00 EDT, Height, kg, 04/16/24 15:08:00 EDT, Dosing Weight Start Date: 04/16/24 Stop Date: 10/13/24 Status: Ordered Benzocaine (1 source) Standardized Chemical Allergen Start: 11-20-2024 End: 11-20-2024 TOPICAL, X (OR/PROCEDURE) PRN, Starting on Tue11/20/24 at 1447, Until Tue11/20/24 at 1447, Intraprocedure Blood-Glucose Meter,Continuous (DEXCOM G6 FOOTWEAR MACHINERY INSTRUCTOR) misc (20 sources) Start: 02-14-2023 End: 12-20-2024 Blood-Glucose Meter,Continuous (DEXCOM G6 FOOTWEAR MACHINERY INSTRUCTOR) misc Indications: Type 1 diabetes mellitus with diabetic polyneuropathy (HCC) Use to check blood sugar at least four (4) times daily. 1 Each 02/14/2023 12/20/2024 Discontinued (Other) Start: 02-14-2023 Blood-Glucose Meter,Continuous (DEXCOM G6 FOOTWEAR MACHINERY INSTRUCTOR) misc Indications: Type 1 diabetes mellitus with diabetic polyneuropathy (HCC) Use to check blood sugar at least four (4) times daily. 1 Each 02/14/2023 Active Start: 02-14-2023 Blood-Glucose Meter,Continuous (DEXCOM G6 FOOTWEAR MACHINERY INSTRUCTOR) misc Indications: Type 1 diabetes mellitus with diabetic polyneuropathy (HCC) Use to check blood sugar at least four (4) times daily. 1 Each 0 02/14/2023 Active Start: 01-31-2023 End: 02-07-2023 Blood-Glucose Meter,Continuo us (DEXCOM G6 FOOTWEAR MACHINERY INSTRUCTOR) misc Indications: Type 1 diabetes mellitus with hyperglycemia (HCC) For use with dexcom g6 sensors 1 Each 0 01/31/2023 02/07/2023 Discontinued (Patient chooses alternative therapy) Start: 01-31-2023 Blood-Glucose Meter,Continuous (DEXCOM G6 FOOTWEAR MACHINERY INSTRUCTOR) misc Indications: Type 1 diabetes mellitus with hyperglycemia (HCC) For use with dexcom g6 sensors 1 Each 0 01/31/2023 Active Start: 01-21-2023 Blood-Glucose Meter,Continuous (DEXCOM G6 FOOTWEAR MACHINERY INSTRUCTOR) misc Indications: Type 1 diabetes mellitus with hyperglycemia (HCC) For use with dexcom g6 sensors 1 Each 0 01/21/2023 Active Comment on above: For use with dexcom g6 sensors Use to check blood s ugar at least four (4) times daily. Blood-Glucose Meter,Continuous (DEXCOM G7 FOOTWEAR MACHINERY INSTRUCTOR) misc (20 sources) Start: 11-24-2023 End: 12-20-2024 Blood-Glucose Meter,Continuous (DEXCOM G7 FOOTWEAR MACHINERY INSTRUCTOR) misc Indications: Type 1 diabetes mellitus with diabetic polyneuropathy (HCC) 1 Each five times a day. 1 Each 11/24/2023 12/20/2024 Discontinued (Other) Start: 11-24-2023 Blood-Glucose Meter,Continuous (DEXCOM G7 FOOTWEAR MACHINERY INSTRUCTOR) misc Indications: Type 1 diabetes mellitus with diabetic polyneuropathy (HCC) 1 Each five times a day. 1 Each 11/24/2023 Active Start: 11-24-2023 End: 11-23-2024 Blood-Glucose Meter,Continuo us (DEXCOM G7 FOOTWEAR MACHINERY INSTRUCTOR) misc Indications: Type 1 diabetes mellitus with diabetic polyneuropathy (HCC) 1 Each five times a day. 1 Each 11/24/2023 11/23/2024 Active Start: 11-24-2023 End: 11-23-2024 Blood-Glucose Meter,Continuo us (DEXCOM G7 FOOTWEAR MACHINERY INSTRUCTOR) misc Indications: Type 1 diabetes mellitus with diabetic polyneuropathy (HCC) 1 Each five times a day. 1 Each 0 11/24/2023 11/23/2024 Active Start: 02-07-2023 End: 02-14-2023 Blood-Glucose Meter,Continuo us (DEXCOM G7 FOOTWEAR MACHINERY INSTRUCTOR) misc Indications: Type 1 diabetes mellitus with diabetic polyneuropathy (HCC) Use daily as directed 1 Each 0 02/07/2023 02/14/2023 Discontinued Start: 02-07-2023 Blood-Glucose Meter,Continuous (DEXCOM G7 FOOTWEAR MACHINERY INSTRUCTOR) misc Indications: Type 1 diabetes mellitus with diabetic polyneuropathy (HCC) Use daily as directed 1 Each 0 02/07/2023 Active Start: 01-07-2023 Blood-Glucose Meter,Continuous (DEXCOM G7 FOOTWEAR MACHINERY INSTRUCTOR) misc Indications: Type 1 diabetes mellitus with hyperglycemia (HCC) Use for glucose monitoring 4 times a day 1 Each 0 01/07/2023 Active Start: 12-10-2022 End: 01-07-2023 Blood-Glucose Meter,Continuo us (DEXCOM G7 FOOTWEAR MACHINERY INSTRUCTOR) misc Indications: Type 1 diabetes mellitus with hyperglycemia (HCC) Use for glucose monitoring 4 times a day 1 Each 0 12/10/2022 01/07/2023 Discontinued Start: 12-10-2022 Blood-Glucose Meter,Continuous (DEXCOM G7 FOOTWEAR MACHINERY INSTRUCTOR) misc Indications: Type 1 diabetes mellitus with hyperglycemia (HCC) Use for glucose monitoring 4 times a day 1 Each 0 12/10/2022 Active Start: 11-15-2022 Blood-Glucose Meter,Continuous (DEXCOM G7 FOOTWEAR MACHINERY INSTRUCTOR) misc Use to test glucose levels 4 times per day as instructed (Type 1 diabetes mellitus E10.65) 1 Each 0 11/15/2022 Active End: 02-07-2023 Blood-Glucose Meter,Continuo us (DEXCOM G7 FOOTWEAR MACHINERY INSTRUCTOR) misc 1 Each as directed. 0 02/07/2023 Discontinued Comment on above: Use to test glucose levels 4 times per day as instructed (Type 1 diabetes mellitus E10.65) Use for glucose flakita toring 4 times a day Use daily as directe d 1 Each as directed. Blood-Glucose Sensor (DEXCOM G6 SENSOR) xenia (20 sources) Start: 02-03-2024 End: 12-20-2024 Blood-Glucose Sensor (DEXCOM G6 SENSOR) xenia Indications: Type 1 diabetes mellitus with diabetic polyneuropathy (HCC) APPLY AND REPLACE SENSOR TOPICALLY EVERY 10 DAYS 3 Each 02/03/2024 12/20/2024 Discontinued (Other) Start: 02-03-2024 Blood-Glucose Sensor (DEXCOM G6 SENSOR) xenia Indications: Type 1 diabetes mellitus with diabetic polyneuropathy (HCC) APPLY AND REPLACE SENSOR TOPICALLY EVERY 10 DAYS 3 Each 02/03/2024 Active Start: 02-03-2024 Blood-Glucose Sensor (DEXCOM G6 SENSOR) xenia Indications: Type 1 diabetes mellitus with diabetic polyneuropathy (HCC) APPLY AND REPLACE SENSOR TOPICALLY EVERY 10 DAYS 3 Each 0 02/03/2024 Active Start: 01-03-2024 End: 01-23-2024 Blood-Glucose Sensor (DEXCOM G6 SENSOR) xenia Indications: Type 1 diabetes mellitus with diabetic polyneuropathy (HCC) 1 Each every 10 days. Replace sensor every 10 days 3 Each 0 01/03/2024 01/23/2024 Discontinued Start: 01-03-2024 End: 02-02-2024 Blood-Glucose Sensor (DEXCOM G6 SENSOR) xenia Indications: Type 1 diabetes mellitus with diabetic polyneuropathy (HCC) 1 Each every 10 days. Replace sensor every 10 days 3 Each 0 01/03/2024 02/02/2024 Active Start: 02-21-2023 End: 12-20-2024 Blood-Glucose Sensor (DEXCOM G6 SENSOR) xenia Indications: Type 1 diabetes mellitus with diabetic polyneuropathy (HCC) Apply new sensor every ten (10) days to abdomen. 9 Each 3 02/21/2023 12/20/2024 Discontinued (Other) Start: 02-21-2023 Blood-Glucose Sensor (DEXCOM G6 SENSOR) xenia Indications: Type 1 diabetes mellitus with diabetic polyneuropathy (HCC) Apply new sensor every ten (10) days to abdomen. 9 Each 3 02/21/2023 Active Start: 02-14-2023 End: 02-21-2023 Blood-Glucose Sensor (DEXCOM G6 SENSOR) xenia Indications: Type 1 diabetes mellitus with diabetic polyneuropathy (HCC) Apply new sensor every ten (10) days to abdomen. 9 Each 3 02/14/2023 02/21/2023 Discontinued Start: 02-14-2023 Blood-Glucose Sensor (DEXCOM G6 SENSOR) xenia Indications: Type 1 diabetes mellitus with diabetic polyneuropathy (HCC) Apply new sensor every ten (10) days to abdomen. 9 Each 3 02/14/2023 Active Start: 01-31-2023 End: 02-07-2023 Blood-Glucose Sensor (DEXCOM G6 SENSOR) xenia Indications: Type 1 diabetes mellitus with hyperglycemia (HCC) Change sensor every 10 days 9 Each 3 01/31/2023 02/07/2023 Discontinued (Patient chooses alternative therapy) Start: 01-31-2023 Blood-Glucose Sensor (DEXCOM G6 SENSOR) xenia Indications: Type 1 diabetes mellitus with hyperglycemia (HCC) Change sensor every 10 days 9 Each 3 01/31/2023 Active Start: 01-21-2023 Blood-Glucose Sensor (DEXCOM G6 SENSOR) xenia Indications: Type 1 diabetes mellitus with hyperglycemia (HCC) Change sensor every 10 days 9 Each 3 01/21/2023 Active Start: 07-21-2022 End: 01-07-2023 Blood-Glucose Sensor (DEXCOM G6 SENSOR) xenia Indications: Type 1 diabetes mellitus with hyperglycemia (HCC) Change sensor every 10 days 12 Each 1 07/21/2022 01/07/2023 Discontinued (Course of therapy completed) Start: 07-21-2022 Blood-Glucose Sensor (DEXCOM G6 SENSOR) xenia Indications: Type 1 diabetes mellitus with hyperglycemia (HCC) Change sensor every 10 days 12 Each 1 07/21/2022 Active Comment on above: Change sensor every 10 days Apply new sensor wendy ry ten (10) days to abdomen. Blood-Glucose Sensor (DEXCOM G7 SENSOR) xenia (15 sources) Start: 11-24-2023 End: 01-03-2024 Blood-Glucose Sensor (DEXCOM G7 SENSOR) xenia Indications: Type 1 diabetes mellitus with diabetic polyneuropathy (HCC) 1 Each every 10 days. 9 Each 0 11/24/2023 01/03/2024 Discontinued (Course of therapy completed) Start: 11-24-2023 End: 02-22-2024 Blood-Glucose Sensor (DEXCOM G7 SENSOR) xenia Indications: Type 1 diabetes mellitus with diabetic polyneuropathy (HCC) 1 Each every 10 days. 9 Each 0 11/24/2023 02/22/2024 Active Start: 02-07-2023 End: 02-14-2023 Blood-Glucose Sensor (DEXCOM G7 SENSOR) xenia Indications: Type 1 diabetes mellitus with diabetic polyneuropathy (HCC) replace/apply a new sensor every 10 days 30 Each 11 02/07/2023 02/14/2023 Discontinued Start: 02-07-2023 Blood-Glucose Sensor (DEXCOM G7 SENSOR) xenia Indications: Type 1 diabetes mellitus with diabetic polyneuropathy (HCC) replace/apply a new sensor every 10 days 30 Each 11 02/07/2023 Active Start: 01-07-2023 End: 01-07-2024 Blood-Glucose Sensor (DEXCOM G7 SENSOR) xenia Indications: Type 1 diabetes mellitus with hyperglycemia (HCC) 1 Each every 10 days. 5 Each 01/07/2023 01/07/2024 Active Start: 11-15-2022 End: 12-10-2022 Blood-Glucose Sensor (DEXCOM G7 SENSOR) xenia Use to test glucose levels 4 times per day as instructed (Type 1 diabetes mellitus E10.65) 3 Each 11 11/15/2022 12/10/2022 Discontinued Start: 11-15-2022 Blood-Glucose Sensor (DEXCOM G7 SENSOR) xenia Use to test glucose levels 4 times per day as instructed (Type 1 diabetes mellitus E10.65) 3 Each 11/15/2022 Active End: 02-07-2023 Blood-Glucose Sensor (DEXCOM G7 SENSOR) xenia 1 Each. replace/apply a new sensor every 10 days 0 02/07/2023 Discontinued Comment on above: Use to test glucose levels 4 times per day as instructed (Type 1 diabetes mellitus E10.65) 1 Each every 10 days . replace/apply a new sensor every 10 days 1 Each. replace/appl y a new sensor every 10 days Blood-Glucose Transmitter (DEXCOM G6 TRANSMITTER) xenia (20 sources) Start: 02-03-2024 End: 12-20-2024 Blood-Glucose Transmitter (DEXCOM G6 TRANSMITTER) xenia Indications: Type 1 diabetes mellitus with diabetic polyneuropathy (HCC) Apply new transmitter every 90 days. Clean transmitter with an alcohol swab with each sensor change. 1 Each 02/03/2024 12/20/2024 Discontinued (Other) Start: 02-03-2024 Blood-Glucose Transmitter (DEXCOM G6 TRANSMITTER) xenia Indications: Type 1 diabetes mellitus with diabetic polyneuropathy (HCC) Apply new transmitter every 90 days. Clean transmitter with an alcohol swab with each sensor change. 1 Each 02/03/2024 Active Start: 02-03-2024 Blood-Glucose Transmitter (DEXCOM G6 TRANSMITTER) xenia Indications: Type 1 diabetes mellitus with diabetic polyneuropathy (HCC) Apply new transmitter every 90 days. Clean transmitter with an alcohol swab with each sensor change. 1 Each 0 02/03/2024 Active Start: 01-03-2024 End: 12-20-2024 Blood-Glucose Transmitter (D EXCOM G6 TRANSMITTER) xenia Indications: Type 1 diabetes mellitus with diabetic polyneuropathy (HCC) 1 Each once daily. 1 Each 01/03/2024 12/20/2024 Discontinued (Other) Start: 01-03-2024 Blood-Glucose Transmitter (DEXCOM G6 TRANSMITTER) xenia Indications: Type 1 diabetes mellitus with diabetic polyneuropathy (HCC) 1 Each once daily. 1 Each 01/03/2024 Active Start: 01-03-2024 Blood-Glucose Transmitter (DEXCOM G6 TRANSMITTER) xenia Indications: Type 1 diabetes mellitus with diabetic polyneuropathy (HCC) 1 Each once daily. 1 Each 0 01/03/2024 Active Start: 07-28-2023 End: 02-03-2024 Blood-Glucose Transmitter (D EXCOM G6 TRANSMITTER) xneia Indications: Type 1 diabetes mellitus with hyperglycemia (HCC) 1 Each before meals and at bedtime. Use for transmitting blood sugars before meals and at bedtime plus as needed for symptoms of hyper- and hypoglycemia 1 Each 0 07/28/2023 02/03/2024 Discontinued Start: 07-28-2023 Blood-Glucose Transmitter (DEXCOM G6 TRANSMITTER) xenia Indications: Type 1 diabetes mellitus with hyperglycemia (HCC) 1 Each before meals and at bedtime. Use for transmitting blood sugars before meals and at bedtime plus as needed for symptoms of hyper- and hypoglycemia 1 Each 0 07/28/2023 Active Start: 02-14-2023 End: 02-03-2024 Blood-Glucose Transmitter (D EXCOM G6 TRANSMITTER) xenia Indications: Type 1 diabetes mellitus with diabetic polyneuropathy (HCC) Apply new transmitter every 90 days. Clean transmitter with an alcohol swab with each sensor change. 1 Each 3 02/14/2023 02/03/2024 Discontinued Start: 02-14-2023 Blood-Glucose Transmitter (DEXCOM G6 TRANSMITTER) xenia Indications: Type 1 diabetes mellitus with diabetic polyneuropathy (HCC) Apply new transmitter every 90 days. Clean transmitter with an alcohol swab with each sensor change. 1 Each 3 02/14/2023 Active Start: 01-31-2023 End: 02-07-2023 Blood-Glucose Transmitter (D EXCOM G6 TRANSMITTER) xenia Indications: Type 1 diabetes mellitus with hyperglycemia (HCC) Change every 90 days 1 Each 3 01/31/2023 02/07/2023 Discontinued (Patient chooses alternative therapy) Start: 01-31-2023 Blood-Glucose Transmitter (DEXCOM G6 TRANSMITTER) xenia Indications: Type 1 diabetes mellitus with hyperglycemia (HCC) Change every 90 days 1 Each 3 01/31/2023 Active Start: 01-21-2023 Blood-Glucose Transmitter (DEXCOM G6 TRANSMITTER) xenia Indications: Type 1 diabetes mellitus with hyperglycemia (HCC) Change every 90 days 1 Each 3 01/21/2023 Active Start: 07-21-2022 Blood-Glucose Transmitter (DEXCOM G6 TRANSMITTER) xenia Indications: Type 1 diabetes mellitus with hyperglycemia (HCC) Change transmitter every 90 days 1 Each 3 07/21/2022 Active Comment on above: Change transmitter e very 90 days Change every 90 days Apply new transmitte r every 90 days. Clean transmitter with an alcohol swab with each sensor change. 1 Each before meals and at bedtime. Use for transmitting blood sugars before meals and at bedtime plus as needed for symptoms of hyper- and hypoglycemia Continuous Blood Gluc [place] Flour (FreeStyle [place] 2 [place]) device (3 sources) Start: End: Continuous Blood Gluc [place] Flour (FreeStyle [place]) device 1 Device Once for 1 dose. 1 each 3 07/15/2022 07/15/2022 cyclobenzaprine hydrochloride 5 mg oral tablet (20 sources) Muscle Relaxant Start: 025 End: 025 take 1 tablet by mouth once daily as needed cyclobenzaprine (FLEXERIL) 5 mg tablet Take 1 tablet by mouth once daily as needed. 7 tablet 01/07/2025 02/27/2025 Discontinued Start: 12-31-2024 End: 01-07-2025 take 1 tablet by mouth every twelve hours as needed cyclobenzaprine (FLEXERIL) 5 mg tablet Take 1 tablet by mouth two times a day as needed for pain. 15 tablet 12/31/2024 4:05 PM EDT 12/31/2024 01/07/2025 Discontinued Start: 02-04-2022 End: 07-21-2022 take 2 tablets by mouth every twelve hours as needed cyclobenzaprine (FLEXERIL) 5 mg tablet Take 2 tablets by mouth twice daily as needed. 14 tablet 0 02/17/2022 07/21/2022 Discontinued (Other) Start: 11-06-2020 take 1 tablet by tere th three times daily as needed for muscle spasms cyclobenzaprine (FLEXERIL) 10 MG tablet Indications: Right hip pain Take 1 tablet by mouth 3 times daily as needed for Muscle spasms. 30 tablet 0 11/06/2020 Active Comment on above: Take 2 tablets by mo [facility] twice daily as needed. DEXCOM G6 SENSOR xenia (3 sources) Start: 01-23-2024 End: 02-03-2024 DEXCOM G6 SENSOR xenia Indications: Type 1 diabetes mellitus with diabetic polyneuropathy (HCC) APPLY AND REPLACE SENSOR TOPICALLY EVERY 10 DAYS 3 Each 0 01/23/2024 02/03/2024 Discontinued Start: 01-23-2024 DEXCOM G6 SENS OR xenia Indications: Type 1 diabetes mellitus with diabetic polyneuropathy (HCC) APPLY AND REPLACE SENSOR TOPICALLY EVERY 10 DAYS 3 Each 0 01/23/2024 Active docusate sodium 50 mg / sennosides, residential 8.6 mg oral tablet (5 sources) Start: 12-31-2024 End: 01-10-2025 take 1 tablet by mouth twice daily senna-docusate (SENNA-S) 8.6-50 mg per tablet Take 1 tablet by mouth two times a day. To prevent constipation during post op recovery. Stop when no longer needed. 28 tablet 1 12/31/2024 4:05 PM EDT 12/31/2024 01/10/2025 Discontinued 1 ml fentaNYL 0.05 mg/ml injection (1 source) Opioid Agonist Start: 11-20-2024 End: 11-20-2024 INTRAVENOUS, X (OR/PROCEDURE) PRN, Starting on Tue11/20/24 at 1451, Until Tue11/20/24 at 1514, Intraprocedure flash glucose sensor (FREESTYLE [place] 2 SENSOR) kit (2 sources) Start: 07-15-2022 End: 07-21-2022 flash glucose sensor (FREESTYLE [place] 2 SENSOR) kit Use to test glucose levels 4 times per day as instructed (Type 1 diabetes mellitus E10.65) 6 Each 3 07/15/2022 07/21/2022 Discontinued (Other) Start: 07-15-2022 flash glucose sensor (FREESTYLE [place] 2 SENSOR) kit Use to test glucose levels 4 times per day as instructed (Type 1 diabetes mellitus E10.65) 6 Each 3 07/15/2022 Active Comment on above: Use to test glucose levels 4 times per day as instructed (Type 1 diabetes mellitus E10.65) 30 actuat fluticasone furoate 0.1 mg/actuat / umeclidinium 0.0625 mg/actuat / vilanterol 0.025 mg/actuat dry powder inhaler (4 sources) Anticholinergic, Corticosteroid, beta2-Adrenergic Agonist Start: 07-05-20 End: 05-06-20 take 1 puff(s) by inhalation once daily fluticasone-umeclidi n-vilanter (TRELEGY ELLIPTA) 100-62.5-25 mcg inhalation powder Inhale 1 Puff as instructed once daily. 180 Each 3 12/10/2022 12/10/2022 Discontinued (Course of therapy completed) Comment on above: Inhale 1 Puff as ins tructed once daily. fluticasone-umeclidin -vilanter (TRELEGY ELLIPTA) 200-62.5-25 mcg inhalation powder (18 sources) Start: 11-23-19 take 1 puff(s) by inhalation once daily fluticasone-umeclidi n-vilanter (TRELEGY ELLIPTA) 200-62.5-25 mcg inhalation powder Indications: Medication refill Inhale 1 Puff as instructed once daily. 28 Each 0 11/22/2022 Active Start: 07-12-2022 take 1 puff(s) by inhalation once daily ewdgtopfmsg-kdbnfmqfr-maiaokiu (TRELEGY ELLIPTA) 200-62.5-25 mcg inhalation powder Indications: Medication refill Inhale 1 Puff as instructed once daily. 60 Each 2 07/12/2022 Active Start: 07-12-2022 End: 10-10-2022 take 1 puff(s) by inhalation once daily vsphzghsxpj-gaaflcyvc-zupekyav (TRELEGY ELLIPTA) 200-62.5-25 mcg inhalation powder Indications: Medication refill Inhale 1 Puff as instructed once daily. 60 Each 2 07/12/2022 10/10/2022 Active Start: 07-12-2022 End: 07-12-2022 take 1 puff(s) by inhalation once daily kocdssofttb-mfmittqcu-fugkrmwe (TRELEGY ELLIPTA) 200-62.5-25 mcg inhalation powder Indications: Medication refill , SOB (shortness of breath) Inhale 1 Puff as instructed once daily. 60 Each 0 07/12/2022 07/12/2022 Discontinued (Course of therapy completed) Start: 07-12-2022 End: 07-12-2022 take 1 puff(s) by inhalation once daily awyhkcduzos-wfixowwnz-avsiafqv (TRELEGY ELLIPTA) 200-62.5-25 mcg inhalation powder Indications: Medication refill Inhale 1 Puff as instructed once daily. 60 Each 2 07/12/2022 07/12/2022 Discontinued (Course of therapy completed) End: 07-12-2022 take 1 puff(s) by inhalation once daily htdydxqdpaw-mwojhlxbj-szywfnwz (TRELEGY ELLIPTA) 200-62.5-25 mcg inhalation powder Inhale 1 Puff as instructed once daily. 0 07/12/2022 Discontinued (Course of therapy completed) Comment on above: Inhale 1 Puff as ins tructed once daily. 60 actuat formoterol fumarate 0.005 mg/actuat / mometasone furoate 0.2 mg/actuat metered dose inhaler (5 sources) Corticosteroid, beta2-Adrenergic Agonist Start: 3 End: 4 take 2 puff(s) by inhalation twice daily mometasone-formotero l (DULERA) 200-5 mcg/actuation inhaler Inhale 2 Puffs as instructed twice daily. 53 g 3 12/10/2022 01/07/2023 Discontinued (Course of therapy completed) Comment on above: Inhale 2 Puffs as in structed twice daily. FREESTYLE CARLTON 2 READER (7 sources) Start: 3 End: 3 FREESTYLE CARLTON 2 READER USE DIRECTED TO MONITOR BLOOD SUGAR DAILY 0 02/04/2023 02/07/2023 Discontinued (Patient chooses alternative therapy) Start: 11-08-2022 FREESTYLE LIBR E 2 READER Indications: Type 1 diabetes mellitus with diabetic polyneuropathy (HCC) USE DIRECTED TO MONITOR BLOOD SUGAR DAILY 0 11/08/2022 Active Comment on above: USE DIRECTED TO M ONITOR BLOOD SUGAR DAILY FREESTYLE CARLTON 2 SENSOR kit (7 sources) Start: 02-04-2023 End: 02-07-2023 FREESTYLE CARLTON 2 SENSOR kit APPLY SENSOR TO BACK OF UPPER ARM,REMOVE AND REPLACE EVERY 14 DAYS 0 02/04/2023 02/07/2023 Discontinued (Patient chooses alternative therapy) Start: 11-22-2022 STEWART CORDOVA E 2 SENSOR kit Indications: Type 1 diabetes mellitus with diabetic polyneuropathy (HCC) APPLY SENSOR TO BACK OF UPPER ARM,REMOVE AND REPLACE EVERY 14 DAYS 0 11/22/2022 Active Comment on above: APPLY SENSOR TO BACK OF UPPER ARM,REMOVE AND REPLACE EVERY 14 DAYS furosemide 20 mg oral tablet (20 sources) Loop Diuretic Start: End: take 1 tablet by mouth once daily furosemide (LASIX) 20 mg tablet Take 1 tablet by mouth once daily for 5 days. 5 tablet 01/08/2025 02/27/2025 Discontinued Start: 01-01-2025 End: 01-08-2025 take 1 tablet by mouth every other day in the morning furosemide (LASIX) 20 mg tablet Indications: Pleural effusion Take 1 tablet by mouth every other day in the morning for 5 doses. 5 tablet 01/08/2025 01/08/2025 Discontinued Start: 01-30-2022 End: 02-03-2022 take 1 tablet by mouth once daily furosemide (LASIX) 40 mg tablet Take 1 tablet by mouth once daily. 7 tablet 0 02/03/2022 Active Comment on above: Take 1 tablet by tere th once daily. gabapentin 800 mg oral tablet (8 sources) Anti-epileptic Agent Start: 04-04-2019 End: 12-31-2021 take 1 tablet by mouth three times daily gabapentin (NEURONTIN) 800 mg tablet Take 1 tablet by mouth three times daily for 90 days. 90 tablet 2 04/04/2019 12/31/2021 Discontinued (Other) Start: 12-25-2018 take 2 capsules by m outh three times daily gabapentin (NEURONTIN) 400 MG capsule Take 2 capsules by mouth 3 times daily for 5 days. 30 capsule 0 12/25/2018 Active Start: 04-17-2018 take 3 capsules by m outh twice daily gabapentin (NEURONTIN) 300 MG capsule Take 3 capsules by mouth 2 times daily for 60 days.. 180 capsule 1 04/17/2018 Active Comment on above: Take 1 tablet by tere th three times daily for 90 days. Gadoterate Meglumine (DOTAREM) injection 0.2 mL (1 source) Start: 01-16-20 End: 01-16-20 Gadoterate Meglumine (DOTAREM) injection 0.2 mL 3 ml insulin degludec 100 unt/ml pen injector (20 sources) Insulin Analog Start: 01-08-20 End: 12-21-19 inject 40 [IU] by subcutaneous injection once daily TRESIBA FLEXTOUCH U-100 100 unit/mL (3 mL) injection pen Indications: Medication refill , Type 1 diabetes mellitus with diabetic polyneuropathy (HCC) INJECT 40 UNITS SUBCUTANEOUSLY ONCE DAILY 9 mL 02/03/2024 12/20/2024 Discontinued (Other) Start: 11-15-2022 End: 05-14-2023 insulin degludec (TRESIBA FLEXTOUCH U-100) 100 unit/mL (3 mL) injection pen Indications: Type 1 diabetes mellitus with hyperglycemia (HCC) Inject 34 Units subcutaneously once daily. 31 mL 1 11/15/2022 01/07/2023 Discontinued Start: 09-13-2022 End: 10-30-2022 inject 24 [IU] by subcutaneous injection once daily in the morning insulin degludec (TRESIBA FLEXTOUCH U-100) 100 unit/mL (3 mL) injection pen Indications: Type 1 diabetes mellitus with hyperglycemia (HCC) Inject 24 Units subcutaneously every morning. 30 mL = 2box(es) = 10 pen(s) = 90 day supply PATIENT IS OFF OF INSULIN PUMP AND NOW USING BASAL/BOLUS INSULIN AGAIN 30 mL 3 09/30/2022 10/30/2022 Active Start: 08-25-2022 End: 09-24-2022 insulin degludec (TRESIBA FLEXTOUCH U-100) 100 unit/mL (3 mL) injection pen Indications: Type 1 diabetes mellitus with hyperglycemia (HCC) Inject 36 Units subcutaneously every morning. For use in the event of pump failure. 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 5 Pen 2 04/04/2019 12/31/2021 Discontinued (Other) Start: 06-09-2018 Insulin Deglud ec (TRESIBA FLEXTOUCH) 100 UNIT/ML SOPN Inject 34 Units into the skin daily 5 pen 3 06/09/2018 Active End: 07-21-2022 insulin degludec (TRESIBA FLEXTOUCH U-100 SUBCUTANEOUS) Inject subcutaneously. 0 07/21/2022 Discontinued (Other) insulin degludec (TRESIBA FLEXTOUCH U-100 SUBCUTANEOUS) Inject subcutaneously. 0 Active Comment on above: Inject 30 Units subc utaneously daily at bedtime. Inject subcutaneousl y. Inject 40 units subc utaneously at bedtime Inject 36 Units subc utaneously every morning. For use in the event of pump failure. Inject 24 Units subc utaneously every morning. Inject 24 Units subc utaneously every morning. 30 mL = 2box(es) = 10 pen(s) = 90 day supply PATIENT IS OFF OF INSULIN PUMP AND NOW USING BASAL/BOLUS INSULIN AGAIN Inject 34 Units subc utaneously once daily. Inject 40 Units subc utaneously once daily. insulin isophane, human 70 unt/ml / insulin, regular, human 30 unt/ml injectable suspension (12 sources) Insulin Start: 022 End: 023 inject 45 [IU] by subcutaneous injection before breakfast, then inject 45 [IU] by subcutaneous injection before dinner insulin NPH-insulin regular injection Indications: Type 1 diabetes mellitus without complication (HCC) Inject 45 Units subcutaneously before breakfast and 45 Units before dinner. 90 ml equals 9 vials 90 mL 0 07/07/2022 07/21/2022 Discontinued (Other) Start: 06-29-2022 End: 07-09-2022 inject 45 [IU] by subcutaneous injection twice daily at mealtime, then inject 45 [IU] by subcutaneous injection before breakfast, then inject 45 [IU] by subcutaneous injection before dinner insulin NPH-insulin regular injection Inject 45 Units subcutaneously twice daily with meals for 10 days. Inject 45 Units subcutaneously before breakfast and 45 Units before dinner. 9 mL 0 06/29/2022 06/30/2022 Discontinued Comment on above: Inject 45 Units subc utaneously twice daily with meals for 10 days. Inject 45 Units subcutaneously before breakfast and 45 Units before dinner. Inject 45 Units subc utaneously before breakfast and 45 Units before dinner. 90 ml equals 9 vials Insulin Syringes, Disposable, 1 mL syrg (10 sources) Start: 06-29-2022 End: 07-21-2022 Insulin Syringes, Disposable, 1 mL syrg 60 Each twice daily. 60 Each 0 06/29/2022 07/21/2022 Discontinued (Other) Start: 06-29-2022 Insulin Syring es, Disposable, 1 mL syrg 60 Each twice daily. 60 Each 0 06/29/2022 Active Comment on above: 60 Each twice daily. ammonium lactate 120 mg/ml topical cream (1 source) Start: 05-23-2024 End: 07-22-2024 ammonium lactate 12% topical cream Apply 1 efe, Topical, BID, # 385 gram(s), 1 Refill(s), Pharmacy: [facility] #61558, 193, cm, 05/23/24 9:11:00 EST, Height, 104.77, kg, 05/23/24 9:11:00 EST, Dosing Weight Start Date: 05/23/24 Stop Date: 07/22/24 Status: Ordered Quantity: 385.0 Unit: g Repeat number: 2 lidocaine hydrochloride 0.02 mg/mg topical gel (2 sources) Antiarrhythmic, Amide Local Anesthetic Start: 11-20-2024 End: 11-20-2024 X (OR/PROCEDURE) PRN, Starting on Tue11/20/24 at 1448, Until Tue11/20/24 at 1448, Intraprocedure Start: 05-10-2019 End: 05-10-2019 lidocaine PF 1 % injection 5 mL LOCM iohexol (OMNIPAQUE 240 mg/ml) injection 3 mL (1 source) Start: 01-15-2021 End: 01-15-2021 LOCM iohexol (OMNIPAQUE 240 mg/ml) injection 3 mL metoprolol tartrate 50 mg oral tablet (20 sources) beta-Adrenergic Leodan Start: 03-10-2022 End: 05-06-2023 take 1 tablet by mouth at bedtime metoprolol tartrate (Lopressor) 50 MG tablet Take 1 tablet by mouth in the morning and at bedtime. 0 03/10/2022 05/06/2023 Discontinued (Therapy completed) Start: 12-14-2021 take 1 tablet by tere th twice daily metoprolol succinate ER (TOPROL XL) 50 mg 24 hr tablet Take 50 mg by mouth twice daily. 0 12/14/2021 Active Start: 12-14-2021 take 1 tablet by tere th once daily metoprolol succinate ER (TOPROL XL) 50 mg 24 hr tablet Take 50 mg by mouth once daily. 0 12/14/2021 Active Start: 08-24-2021 take 1 tablet by tere th once daily metoprolol succinate (TOPROL XL) 50 MG extended release tablet Indications: LVH (left ventricular hypertrophy) Take 1 tablet by mouth daily 30 tablet 3 08/24/2021 Active Start: 02-24-2021 take 1 tablet by tere th once daily Metoprolol Succinate ER (TOPROL-XL) 50 MG 24 hr tablet Take 1 tablet by mouth daily. 30 tablet 2 02/24/2021 Active Start: 01-20-2021 take 1 tablet by tere th twice daily Metoprolol Succinate ER (TOPROL-XL) 25 MG 24 hr tablet TAKE 1 TABLET BY MOUTH TWO TIMES PER DAY. 60 tablet 2 01/20/2021 Active Start: 11-19-2020 take 1 tablet by tere th twice daily Metoprolol Succinate ER (TOPROL-XL) 25 MG 24 hr tablet Take 1 tablet by mouth two times per day. 60 tablet 2 11/19/2020 Active Comment on above: Take 50 mg by mouth once daily. Take 50 mg by mouth twice daily. 5 ml midazolam 1 mg/ml injection (1 source) Benzodiazepine Start: 11-20-2024 End: 11-20-2024 INTRAVENOUS, X (OR/PROCEDURE) PRN, Starting on Tue11/20/24 at 1452, Until Tue11/20/24 at 1514, Intraprocedure mupirocin 0.02 mg/mg topical ointment (20 sources) RNA Synthetase Inhibitor Antibacterial Start: 12-20-2024 mupirocin (BACTROBAN) 2 % ointment Apply a small amount in each nostril using a cotton swab twice the day before surgery and once the morning of surgery. 22 g 12/20/2024 Suspended Start: 01-25-2022 End: 05-06-2023 mupirocin (Bactroban) 2 % oi ntment Start: 01-25-2022 End: 01-27-2022 mupirocin (BACTROBAN) 2 % oi ntment Apply a small amount in each nostril using a cotton swab twice the day before surgery and once the morning of surgery. 22 g 0 01/25/2022 01/27/2022 Active Comment on above: Apply a small amount in each nostril using a cotton swab twice the day before surgery and once the morning of surgery. OMNIPOD 5 G6 PODS, GEN 5, crtg (20 sources) Start: 02-07-2023 End: 12-20-2024 OMNIPOD 5 G6 PODS, GEN 5, crtg Indications: Type 1 diabetes mellitus with hyperglycemia (HCC) Change pod every 48 hours. 45 Each 3 02/07/2023 12/20/2024 Discontinued (Other) Start: 02-07-2023 OMNIPOD 5 G6 P ODS, GEN 5, crtg Indications: Type 1 diabetes mellitus with hyperglycemia (HCC) Change pod every 48 hours. 45 Each 3 02/07/2023 Active Start: 01-21-2023 End: 02-07-2023 OMNIPOD 5 G6 PODS, GEN 5, cr tg Indications: Type 1 diabetes mellitus with hyperglycemia (HCC) Change pod every 48 hours. 45 Each 3 01/21/2023 02/07/2023 Discontinued Start: 01-21-2023 OMNIPOD 5 G6 P ODS, GEN 5, crtg Indications: Type 1 diabetes mellitus with hyperglycemia (HCC) Change pod every 48 hours. 45 Each 3 01/21/2023 Active Comment on above: Change pod every 48 hours. pantoprazole 20 mg delayed release oral tablet (20 sources) Proton Pump Inhibitor Start: 01-02-20 End: 02-28-20 take 1 tablet by mouth once daily in the morning pantoprazole DR (PROTONIX) 20 mg tablet Take 1 tablet by mouth daily at 6 am for 14 days. 14 tablet 12/31/2024 4:05 PM EDT 01/01/2025 02/27/2025 Discontinued polyethylene glycol 3350 93010 mg powder for oral solution (20 sources) Osmotic Laxative Start: 01-01-20 End: 02-28-20 polyethylene glycol 3350 17 gram/dose powder Take 17 g by mouth once daily as needed for constipation. Dissolve dose in 4 - 8 ounces of liquid and take as directed. To prevent constipation during post op recovery. Stop when no longer needed. 119 g 1 12/31/2024 4:05 PM EDT 12/31/2024 02/27/2025 Discontinued microencapsulated potassium chloride 20 meq extended release oral tablet (20 sources) Start: 01-09-20 End: 02-28-20 take 1 tablet by mouth once daily potassium chloride ER (KLOR-CON) 20 mEq tablet Take 1 tablet by mouth once daily. 5 tablet 01/08/2025 02/27/2025 Discontinued Start: 01-01-2025 End: 01-08-2025 take 1 tablet by mouth every other day in the morning potassium chloride (K-TAB) 10 mEq tablet Indications: Pleural effusion Take 1 tablet by mouth every other day in the morning for 5 doses. Take potassium with furosemide. Do not take if furosemide is stopped or held 5 tablet 01/08/2025 01/08/2025 Discontinued Start: 01-30-2022 End: 02-10-2022 take 1 tablet by mouth once daily potassium chloride ER (K-DUR, KLOR-CON) 20 mEq tablet Take 1 tablet by mouth once daily for 7 days. Take with lasix 7 tablet 0 02/03/2022 02/10/2022 Comment on above: Take 1 tablet by tere th once daily for 7 days. Take with lasix 12 hr ranolazine 500 mg extended release oral tablet (12 sources) Anti-anginal Start: 11-12-2021 take 1 tablet by mouth twice daily ranolazine ER (RANEXA) 500 mg 12 hr tablet Take 1 tablet by mouth twice daily. 0 11/12/2021 Suspended Comment on above: Take 1 tablet by tere th twice daily. sertraline 25 mg oral tablet (7 sources) Serotonin Reuptake Inhibitor Start: 04-04-2019 End: 12-31-2021 take 1 tablet by mouth once daily sertraline (ZOLOFT) 25 mg tablet Take 1 tablet by mouth once daily. 90 tablet 0 04/04/2019 12/31/2021 Discontinued (Other) Comment on above: Take 1 tablet by tere th once daily. 50 ml sodium chloride 9 mg/ml injection (20 sources) Start: 08-25-2022 End: 08-25-2022 sodium chloride 0.9 % bolus 1,000 mL Start: 01-29-2022 End: 04-30-2023 sodium chloride 0.9 % (flush ) 10 mL (BD POSIFLUSH) Start: 05-10-2019 0.9 % sodium c hloride infusion vancomycin (VANCOCIN) 1,750 mg in dextrose 5 % 500 mL IVPB (1 source) Start: 05-10-2019 End: 05-10-2019 vancomycin (VANCOCIN) 1,750 mg in dextrose 5 % 500 mL IVPB Problems Active Problems Problem Classification Problem Date Documented Date Episodic/Chronic Acute posthemorrhagic anemia (1 source) Acute posthemorrhagic anemia; Translations: [Acute posthemorrhagic anemia] 01-08-2025 Episodic Alcohol-related disorders (20 sources) Alcohol abuse; Translations: [History of alcohol abuse] Onset: 8 04-17-2018 Chronic Anxiety disorders (20 sources) Mixed anxiety and depressive disorder; Translations: [Anxiety disorder, unspecified] Onset: 9 10-06-2020 Chronic Aortic; peripheral; and visceral artery aneurysms (1 source) Thoracic aortic ectasia; Translations: [Ascending aorta dilatation] Onset: 5 Chronic Attention-deficit, conduct, and disruptive behavior disorders (1 source) Abnormal behavior; Translations: [Other symptoms and signs involving appearance and behavior] Onset: 4 Episodic Cardiac and circulatory congenital anomalies (20 sources) Subaortic stenosis; 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] Onset: 8 11-21-2018 Chronic Cardiac dysrhythmias (1 source) AV junctional rhythm; Translations: [Other specified cardiac arrhythmias] 01-08-2025 Chronic Chronic obstructive pulmonary disease and bronchiectasis (8 sources) Simple chronic bronchitis; Translations: [Simple chronic bronchitis] Chronic Coagulation and hemorrhagic disorders (20 sources) Blood coagulation disorder; Translations: [Coagulation defect, unspecified] Onset: 5 12-25-2024 Chronic Deficiency and other anemia (20 sources) Chronic anemia; Translations: [Anemia, unspecified] Onset: 5 01-10-2025 Episodic Deficiency and other anemia (20 sources) Iron deficiency anemia secondary to inadequate dietary iron intake; Translations: [Other iron deficiency anemias] Onset: 5 01-21-2025 Episodic Deficiency and other anemia (1 source) Other iron deficiency anemias; Translations: [Iron deficiency anemia secondary to inadequate dietary iron intake] Onset: 5 Episodic Deficiency and other anemia (2 sources) Anemia, unspecified; Translations: [Chronic anemia] Onset: 5 Episodic Diabetes mellitus with complications (20 sources) Hyperglycemia due to type 1 diabetes mellitus; Translations: [Type 1 diabetes mellitus with hyperglycemia] Onset: 2 Resolved: 4 Chronic Diabetes mellitus without complication (20 sources) Type 1 diabetes mellitus; Translations: [Type 1 diabetes mellitus without complications] Onset: 3 04-17-2018 Chronic Diabetes mellitus without complication (20 sources) Hyperglycemia, unspecified; Translations: [Insulin pump present] Onset: 8 Episodic Diabetes mellitus without complication (1 source) Diabetes mellitus without complication 04-16-2024 Disorders of lipid metabolism (20 sources) Hyperlipidemia; Translations: [Hypercholesterolemia] Onset: 4 04-17-2018 Chronic Genitourinary symptoms and ill-defined conditions (1 source) Dysuria; Translations: [Dysuria] Episodic Headache; including migraine (1 source) Headache; Translations: [Headache, unspecified] Onset: 4 Episodic Heart valve disorders (20 sources) Mitral valve regurgitation; Translations: [History of aortic valve replacement] Onset: 6 Resolved: 5 04-17-2018 Chronic Immunizations and screening for infectious disease (20 sources) Patient encounter status; Translations: [Encounter for screening for human immunodeficiency virus [HIV]] Onset: 2 Episodic Inflammation; infection of eye (except that caused by tuberculosis or sexually transmitteddisease) (1 source) Bacterial conjunctivitis; Translations: [Acute bacterial conjunctivitis of both eyes] Episodic Joint disorders and dislocations; trauma-related (1 source) Other articular cartilage disorders, right hip; Translations: [Articular cartilage disorder, pelvic region and thigh] Onset: 1 02-21-2025 Chronic Malaise and fatigue (1 source) Fatigue; Translations: [Chronic fatigue, unspecified] Chronic Mood disorders (20 sources) Recurrent major depressive episodes, moderate ; Translations: [Major depressive disorder, recurrent, moderate] Onset: 0 08-08-2019 Chronic Neoplasms of unspecified nature or uncertain behavior (1 source) Thrombocytosis; Translations: [Thrombocytosis] 01-08-2025 Episodic Nutritional deficiencies (20 sources) Vitamin D deficiency; Translations: [Vitamin D deficiency, unspecified] Onset: 3 03-18-2020 Chronic Open wounds of head; neck; and trunk (1 source) Open wound; Translations: [Wound drainage] Episodic Osteoarthritis (1 source) Osteoarthritis of acromioclavicular joint; Translations: [Primary osteoarthritis, unspecified shoulder] Onset: 7 2017 Chronic Other aftercare (1 source) Wound finding; Translations: [Encounter for other specified aftercare] Episodic Other aftercare (4 sources) long-term (current) use of insulin; Translations: [long-term (current) use of insulin] Onset: 2 Episodic Other aftercare (3 sources) Taking high risk medication; Translations: [Other mcc (current) drug therapy] Episodic Other aftercare (3 sources) Surgical follow-up; Translations: [Encounter for follow-up examination after completed treatment for conditions other than malignant neoplasm] 12-31-2024 Episodic Other aftercare (20 sources) Long-term current use of anticoagulant; Translations: [long-term (current) use of anticoagulants] Onset: 5 01-14-2025 Episodic Other aftercare (1 source) Long-term current use of insulin; Translations: [long-term (current) use of insulin] 02-28-2025 Episodic Other aftercare (4 sources) long-term (current) use of anticoagulants; Translations: [long-term current use of anticoagulant therapy] Onset: 5 Episodic Other aftercare (2 sources) Encounter for therapeutic drug level monitoring; Translations: [Encounter for therapeutic drug level monitoring] Onset: 5 Episodic Other aftercare (1 source) Encounter for follow-up examination after completed treatment for conditions other than malignant neoplasm; Translations: [Surgery follow-up] Onset: 5 Episodic Other and ill-defined heart disease (10 sources) Heart valve finding; Translations: [Other ill-defined heart diseases] Onset: 1 10-06-2020 Chronic Other and ill-defined heart disease (1 source) Left ventricular hypertrophy; Translations: [Cardiomegaly] Chronic Other and ill-defined heart disease (2 sources) Cardiomegaly; Translations: [Cardiomegaly] Onset: 2 Chronic Other circulatory disease (13 sources) History of aortic valve stenosis; Translations: [Personal history of other diseases of the circulatory system] Onset: 5 03-07-2025 Episodic Other connective tissue disease (4 sources) Adhesive capsulitis of right shoulder; Translations: [Adhesive capsulitis of right shoulder] Onset: 8 Resolved: 8 06-09-2018 Episodic Other connective tissue disease (1 source) Pain in bilateral legs; Translations: [Pain in right leg] 02-28-2025 Episodic Other connective tissue disease (1 source) Pain in right leg; Translations: [Pain in both lower extremities] Onset: 5 Episodic Other connective tissue disease (1 source) Pain in left leg; Translations: [Pain in both lower extremities] Onset: 5 Episodic Other connective tissue disease (3 sources) Impingement syndrome of right shoulder region; Translations: [Impingement syndrome of right shoulder] Onset: 6 04-17-2018 Other endocrine disorders (1 source) Hypoglycemia, unspecified; Translations: [Hypoglycemia, unspecified] Onset: 8 Chronic Other endocrine disorders (20 sources) Hypoglycemia; Translations: [Hypoglycemia, unspecified] Onset: 3 03-18-2020 Chronic Other hematologic conditions (1 source) Abnormal finding on evaluation procedure; Translations: [Other specified abnormalities of plasma proteins] Onset: 4 Episodic Other liver diseases (1 source) Elevated liver enzymes level; Translations: [Abnormal levels of other serum enzymes] Episodic Other lower respiratory disease (1 source) Cough; Translations: [Cough] Episodic Other lower respiratory disease (1 source) Other forms of dyspnea; Translations: [Exertional dyspnea] Onset: 5 Episodic Other lower respiratory disease (1 source) Acute pulmonary edema; Translations: [Postoperative pulmonary edema (HCC)] Onset: 5 Episodic Other nervous system disorders (1 source) Encephalopathy, unspecified; Translations: [Encephalopathy acute] Onset: 4 Chronic Other nervous system disorders (1 source) Chronic pain syndrome; Translations: [Chronic pain syndrome] 12-20-2024 Chronic Other nervous system disorders (1 source) Peripheral nerve disease ; Translations: [Polyneuropathy, unspecified] Onset: 2 03-26-2022 Chronic Other nervous system disorders (1 source) Carpal tunnel syndrome, left upper limb; Translations: [Carpal tunnel syndrome] Onset: 9 02-21-2025 Chronic Other nervous system disorders (1 source) Carpal tunnel syndrome; Translations: [Carpal tunnel syndrome, right upper limb] Onset: 8 08-29-2017 Chronic Other nervous system disorders (1 source) Ulnar neuropathy; Translations: [Lesion of ulnar nerve, right upper limb] Onset: 8 08-29-2017 Chronic Other nervous system disorders (5 sources) Cervical myelopathy; Translations: [Disease of spinal cord, unspecified] 03-15-2025 Chronic Other nervous system disorders (1 source) Chronic pain syndrome; Translations: [Chronic pain syndrome] Onset: 5 Chronic Other nervous system disorders (20 sources) Impaired cognition; Translations: [Other symptoms and signs involving cognitive functions and awareness] Onset: 5 02-13-2025 Episodic Other nervous system disorders (20 sources) Numbness of foot ; Translations: [Anesthesia of skin] Onset: 5 02-13-2025 Episodic Other nervous system disorders (1 source) Other symptoms and signs involving cognitive functions and awareness; Translations: [Cognitive decline] Onset: 5 Episodic Other nervous system disorders (1 source) Anesthesia of skin; Translations: [Numbness of right foot] Onset: 5 Episodic Other non-traumatic joint disorders (1 source) Pain in right hip joint; Translations: [Pain in right hip] Episodic Other nutritional; endocrine; and metabolic disorders (20 sources) Body mass index 30+ - obesity; Translations: [Obesity, unspecified] Onset: 2 12-31-2021 Chronic Other nutritional; endocrine; and metabolic disorders (20 sources) Obese class II; Translations: [Obesity, unspecified] Onset: 2 01-28-2022 Chronic Other nutritional; endocrine; and metabolic disorders (20 sources) Drug-induced obesity; Translations: [Class 1 drug-induced obesity with serious comorbidity and body mass index (BMI) of 31.0 to 31.9 in adult] Onset: 5 12-19-2024 Chronic Other nutritional; endocrine; and metabolic disorders (1 source) Obesity caused by energy imbalance; Translations: [Class 1 obesity due to excess calories with serious comorbidity and body mass index (BMI) of 31.0 to 31.9 in adult] 12-19-2024 Chronic Other nutritional; endocrine; and metabolic disorders (20 sources) Obese class I; Translations: [Obesity, Class I, BMI 30-34.9] Onset: 5 12-30-2024 Chronic Other nutritional; endocrine; and metabolic disorders (1 source) Other obesity due to excess calories; Translations: [Class 1 obesity due to excess calories with serious comorbidity and body mass index (BMI) of 31.0 to 31.9 in adult] Onset: 5 Chronic Other nutritional; endocrine; and metabolic disorders (1 source) Body mass index (BMI) 31.0-31.9, adult; Translations: [Class 1 obesity due to excess calories with serious comorbidity and body mass index (BMI) of 31.0 to 31.9 in adult] Onset: 5 Chronic Other nutritional; endocrine; and metabolic disorders (20 sources) Overweight in adulthood with body mass index of 25 or more but less than 30; Translations: [Overweight] Onset: 5 01-10-2025 Episodic Other nutritional; endocrine; and metabolic disorders (1 source) Overweight; Translations: [Overweight with body mass index (BMI) of 29 to 29.9 in adult] Onset: 5 Episodic Other nutritional; endocrine; and metabolic disorders (1 source) Body mass index (BMI) 29.0-29.9, adult; Translations: [Overweight with body mass index (BMI) of 29 to 29.9 in adult] Onset: 5 Episodic Other screening for suspected conditions (not mental disorders or infectious disease) (3 sources) Other specified abnormal findings of blood chemistry; Translations: [Viral screening status] Onset: 4 04-16-2024 Episodic Other skin disorders (1 source) Finding of trunk structure; Translations: [Localized swelling, mass and lump, trunk] Episodic Peripheral and visceral atherosclerosis (20 sources) Peripheral vascular disease; Translations: [Peripheral vascular disease, unspecified] Onset: 5 02-13-2025 Chronic Pneumonia (except that caused by tuberculosis or sexually transmitted disease) (1 source) Pneumonia, unspecified organism; Translations: [Pneumonia of left lower lobe due to infectious organism] Onset: 4 Episodic Residual codes; unclassified (8 sources) Obstructive sleep apnea syndrome; Translations: [Obstructive sleep apnea (adult) (pediatric)] Onset: 3 05-06-2023 Chronic Residual codes; unclassified (8 sources) Tobacco user 03-18-2020 Episodic Residual codes; unclassified (1 source) History of tricuspid valve repair; Translations: [Other specified postprocedural states] Episodic Residual codes; unclassified (1 source) Did not attend; Translations: [No-show for appointment] Episodic Residual codes; unclassified (1 source) Past history of procedure; Translations: [Other specified postprocedural states] 11-20-2024 Episodic Residual codes; unclassified (1 source) History of cardiac catheterization; Translations: [Other specified postprocedural states] 12-28-2024 Episodic Residual codes; unclassified (1 source) H/O cardiac surgery; Translations: [Other specified postprocedural states] 02-28-2025 Episodic Residual codes; unclassified (13 sources) Peripheral edema; Translations: [Localized edema] Onset: 5 03-07-2025 Episodic Residual codes; unclassified (2 sources) Other specified postprocedural states; Translations: [History of heart surgery] Onset: 5 Episodic Residual codes; unclassified (1 source) Localized edema; Translations: [Peripheral edema] Onset: 5 Episodic Screening and history of mental health and substance abuse codes (20 sources) Ex-smoker; Translations: [Personal history of nicotine dependence] Onset: 2 04-04-2019 Episodic Spondylosis; intervertebral disc disorders; other back problems (20 sources) Displacement of cervical intervertebral disc; Translations: [Other cervical disc displacement, unspecified cervical region] Onset: 5 01-24-2025 Chronic Spondylosis; intervertebral disc disorders; other back problems (6 sources) Cervical radiculopathy; Translations: [Radiculopathy, cervical region] Onset: 8 07-20-2017 Episodic Substance-related disorders (20 sources) Crack cocaine misuse; Translations: [History of drug abuse] Onset: 3 06-09-2018 Chronic Thyroid disorders (20 sources) Hypothyroidism; Translations: [Acquired hypothyroidism] Onset: 8 04-17-2018 Chronic Unclassified (3 sources) Chronic pain of right upper limb; Translations: [Chronic right shoulder pain] Onset: 8 02-01-2018 Unclassified (1 source) History of clinical finding in subject; Translations: [History of cocaine use] Onset: 3 06-18-2019 Unclassified (9 sources) History of aortic valve repair 03-18-2020 Unclassified (2 sources) NO SHOW Unclassified (1 source) APPOINTMENT CANCELLED 01-02-2024 Unclassified (1 source) Cocaine use, unspecified, in remission; Translations: [Cocaine use, unspecified, in remission] Onset: 2 Unclassified (4 sources) Autogenerated Problem Onset: 5 03-25-2025 Unclassified (1 source) Class 1 obesity due to excess calories with serious comorbidity and body mass index (BMI) of 31.0 to 31.9 in adult; Translations: [Class 1 obesity due to excess calories with serious comorbidity and body mass index (BMI) of 31.0 to 31.9 in adult] Onset: 5 Urinary tract infections (2 sources) Acute cystitis; Translations: [Acute cystitis with hematuria] Episodic Viral infection (20 sources) Genital herpes simplex; Translations: [Herpesviral infection of urogenital system, unspecified] Onset: 4 04-17-2018 Chronic Viral infection (7 sources) Disease caused by 2019-nCoV; Translations: [COVID-19] 03-20-2023 Episodic Past or Other Problems Problem Classification Problem Date Documented Date Episodic/Chronic Acute and unspecified renal failure (2 sources) Acute injury of kidney; Translations: [Acute kidney failure, unspecified] Episodic Administrative/social admission (20 sources) Discharge status; Translations: [Encounter for administrative examinations, unspecified] Onset: 01-22-2022 01-22-2022 Episodic Alcohol-related disorders (1 source) History of alcohol abuse; Translations: [History of alcohol abuse] Onset: 04-17-2018 06-18-2019 Episodic Allergic reactions (12 sources) Eczema; Translations: [Dermatitis, unspecified] Onset: 10-17-2020 10-17-2020 Episodic Cardiac dysrhythmias (20 sources) Tachycardia; Translations: [Tachycardia, unspecified] Onset: 01-24-2025 Resolved: 03-07-2025 02-05-2025 Episodic Complications of surgical procedures or medical care (20 sources) Postoperative wound infection; Translations: [Infection following a procedure, other surgical site, initial encounter] Onset: 12-25-2024 Resolved: 12-26-2024 Episodic Diseases of white blood cells (20 sources) Leukocytosis; Translations: [Elevated white blood cell count, unspecified] Onset: 02-07-2024 Resolved: 02-10-2024 02-10-2024 Chronic Disorders of teeth and jaw (5 sources) Infection of tooth; Translations: [Periapical abscess without sinus] Onset: 11-30-2024 Episodic Essential hypertension (20 sources) Hypertensive disorder; Translations: [Essential (primary) hypertension] Onset: 11-12-2021 Resolved: 08-27-2015 03-18-2020 Chronic Fluid and electrolyte disorders (20 sources) Hypervolemia; Translations: [Fluid overload, unspecified] Onset: 01-28-2022 Resolved: 12-26-2024 01-29-2022 Episodic Heart valve disorders (20 sources) Systolic murmur; Translations: [Cardiac murmur, unspecified] Onset: 08-22-2013 04-17-2018 Episodic Mood disorders (2 sources) Mood disorders Onset: 03-15-2025 03-15-2025 Nonspecific chest pain (2 sources) Chest pain; Translations: [Chest pain, unspecified] Onset: 03-27-2024 Episodic Other connective tissue disease (20 sources) Muscle weakness; Translations: [Muscle weakness (generalized)] Onset: 01-27-2018 01-27-2018 Episodic Other connective tissue disease (5 sources) Disorder of muscle; Translations: [Disorder of muscle, unspecified] Onset: 01-27-2018 Resolved: 06-09-2018 06-09-2018 Episodic Other connective tissue disease (20 sources) Impingement syndrome of right shoulder region; Translations: [Impingement syndrome of right shoulder] Onset: 08-13-2015 04-17-2018 Episodic Other connective tissue disease (1 source) Lateral epicondylitis, right elbow; Translations: [Lateral epicondylitis] Onset: 09-25-2021 02-21-2025 Episodic Other connective tissue disease (1 source) Adhesive capsulitis of left shoulder; Translations: [Adhesive capsulitis of left shoulder] Onset: 02-17-2021 02-21-2025 Episodic Other connective tissue disease (1 source) Adhesive capsulitis of shoulder; Translations: [Adhesive capsulitis of right shoulder] Onset: 10-14-2017 10-14-2017 Episodic Other connective tissue disease (3 sources) Adhesive capsulitis of right shoulder; Translations: [Adhesive capsulitis of right shoulder] Onset: 01-27-2018 Resolved: 06-09-2018 06-09-2018 Other diseases of kidney and ureters (2 sources) Disorder of kidney and ureter, unspecified; Translations: [Disorder of kidney and ureter, unspecified] Onset: 11-12-2021 Episodic Other injuries and conditions due to external causes (5 sources) Injury of upper arm; Translations: [Strain of unspecified muscle, fascia and tendon at shoulder and upper arm level, right arm, sequela] Onset: 01-27-2018 Resolved: 06-09-2018 06-09-2018 Episodic Other lower respiratory disease (20 sources) Dyspnea; Translations: [Shortness of breath] Onset: 09-18-2020 Episodic Other lower respiratory disease (20 sources) H/O: asthma; Translations: [Personal history of other diseases of the respiratory system] Onset: 09-18-2020 09-18-2020 Episodic Other lower respiratory disease (1 source) Shortness of breath; Translations: [Shortness of breath] Onset: 09-23-2021 Episodic Other lower respiratory disease (16 sources) Dyspnea on exertion; Translations: [Other forms of dyspnea] Onset: 01-26-2022 Episodic Other lower respiratory disease (20 sources) Postoperative pulmonary edema; Translations: [Acute pulmonary edema] Onset: 12-25-2024 01-14-2025 Episodic Other lower respiratory disease (1 source) Personal history of other diseases of the respiratory system; Translations: [History of asthma] Onset: 01-07-2023 Episodic Other nervous system disorders (20 sources) Postoperative pain ; Translations: [Other acute postprocedural pain] Onset: 01-26-2022 01-29-2022 Episodic Other non-traumatic joint disorders (3 sources) Hip pain; Translations: [Pain in right hip] Onset: 08-25-2021 Episodic Other non-traumatic joint disorders (20 sources) Chronic pain of right upper limb; Translations: [Pain in right shoulder] Onset: 01-27-2018 02-01-2018 Episodic Other non-traumatic joint disorders (20 sources) Shoulder joint pain; Translations: [Pain in unspecified shoulder] Onset: 05-23-2013 01-07-2023 Episodic Other non-traumatic joint disorders (1 source) Disorder of hip joint; Translations: [Other specified joint disorders, left hip] Onset: 10-06-2021 10-06-2021 Episodic Other non-traumatic joint disorders (1 source) Other specified joint disorders, right hip; Translations: [Other specified disorders of joint, pelvic region and thigh] Onset: 02-10-2021 02-21-2025 Episodic Other non-traumatic joint disorders (1 source) Pain of right shoulder joint; Translations: [Pain in right shoulder] Onset: 09-02-2017 02-21-2025 Episodic Other nutritional; endocrine; and metabolic disorders (20 sources) Hypophosphatemia; Translations: [Other disorders of phosphorus metabolism] Onset: 02-07-2024 Resolved: 02-10-2024 02-10-2024 Chronic Other skin disorders (1 source) Disorder of elbow; Translations: [Localized swelling, mass and lump, right upper limb] Onset: 09-25-2021 09-26-2021 Episodic Pleurisy; pneumothorax; pulmonary collapse (20 sources) Atelectasis; Translations: [Atelectasis] Onset: 01-26-2022 Resolved: 02-13-2025 Episodic Residual codes; unclassified (2 sources) H/O: recreational drug use; Translations: [Personal history of other specified conditions] Onset: 03-26-2013 06-18-2019 Episodic Residual codes; unclassified (7 sources) Sleep disorder; Translations: [Sleep disorder, unspecified] Onset: 05-06-2023 05-06-2023 Episodic Respiratory failure; insufficiency; arrest (adult) (20 sources) Dependence on ventilator; Translations: [Dependence on respirator [ventilator] status] Onset: 12-25-2024 Resolved: 12-26-2024 12-25-2024 Chronic Respiratory failure; insufficiency; arrest (adult) (20 sources) Acute hypoxemic respiratory failure; Translations: [Acute respiratory failure with hypoxia] Onset: 02-07-2024 Resolved: 02-10-2024 02-10-2024 Episodic Septicemia (except in labor) (20 sources) Sepsis; Translations: [Sepsis, unspecified organism] Onset: 02-07-2024 Resolved: 02-10-2024 02-10-2024 Episodic Skin and subcutaneous tissue infections (5 sources) Cellulitis of back, except buttock; Translations: [Cellulitis and abscess of trunk] Resolved: 06-18-2019 05-10-2019 Episodic Substance-related disorders (20 sources) Illicit medication use; Translations: [Other psychoactive substance use, unspecified, uncomplicated] Onset: 02-01-2024 02-17-2023 Episodic Thyroid disorders (2 sources) Disorder of thyroid, unspecified; Translations: [Disorder of thyroid, unspecified] Onset: 11-12-2021 Episodic Unclassified (3 sources) History of mechanical aortic valve replacement 02-27-2025 Unclassified (1 source) Cocaine use, unspecified, in remission; Translations: [Cocaine use, unspecified, in remission] Onset: 05-14-2024 Results Test Name Value Interpretation Reference Range Facility CBC panel Auto (Bld)on 03-26 Erythrocyte distribution width (RBC) [Ratio] 14.7 % Normal 11.5-15.0 [facility] Comment on above: Order Comment: Speci men Type: BLOOD SPECIMENOrdering Facility: [facility] Address: [address] [place] [address] Performed By: #### 5 8410-2 ####[facility] [id number] [address] [address] [place] Hematocrit (Bld) [Volume fraction] 41.6 % Normal 39.0-51.0 [facility] Comment on above: Order Comment: Speci men Type: BLOOD SPECIMENOrdering Facility: [facility] Address: [address] [place] [address] Performed By: #### 5 8410-2 ####[facility] [id number] [address] [address] [place] Hemoglobin (Bld) [Mass/Vol] 13.4 g/dL Normal 13.0-17.0 [facility] Comment on above: Order Comment: Speci men Type: BLOOD SPECIMENOrdering Facility: [facility] Address: [address] [place] [address] Performed By: #### 5 8410-2 ####[facility] [id number] [address] [address] [place] MCH (RBC) [Entitic mass] 28.5 pg Normal 26.0-34.0 [facility] Comment on above: Order Comment: Speci men Type: BLOOD SPECIMENOrdering Facility: [facility] Address: [address] [place] [address] Performed By: #### 5 8410-2 ####[facility] [id number] [address] [address] [place] MCHC (RBC) [Mass/Vol] 32.2 g/dL Normal 30.5-36.0 [facility] Comment on above: Order Comment: Speci men Type: BLOOD SPECIMENOrdering Facility: [facility] Address: [address] [place] [address] Performed By: #### 5 8410-2 ####[facility] [id number] [place] [address] [place] MCV (RBC) [Entitic vol] 88.3 fL Normal 80.0-100.0 [facility] Comment on above: Order Comment: Speci men Type: BLOOD SPECIMENOrdering Facility: [facility] Address: [address] [place] [address] Performed By: #### 5 8410-2 ####[facility] [id number] [place] [address] [place] Nucleated RBC (Bld) [#/Vol] 10*3/uL Normal <0.01 [facility] Comment on above: Order Comment: Speci men Type: BLOOD SPECIMENOrdering Facility: [facility] Address: [address] [place] [address] Performed By: #### 5 8410-2 ####[facility] [id number] [place] [address] [place] Platelet mean volume (Bld) [Entitic vol] 10.4 fL Normal 9.0-12.7 [facility] Comment on above: Order Comment: Speci men Type: BLOOD SPECIMENOrdering Facility: [facility] Address: [address] [place] [address] Performed By: #### 5 8410-2 ####[facility] [id number] [place] [id number] [place] Platelets (Bld) [#/Vol] 224 10*3/uL Normal 150-400 [facility] Comment on above: Order Comment: Speci men Type: BLOOD SPECIMENOrdering Facility: [facility] Address: [address] [id number] Performed By: #### 5 8410-2 ####[facility] [id number] [place] [address] [place] RBC (Bld) [#/Vol] 4.71 10*6/uL Normal 4.20-6.00 [facility] Comment on above: Order Comment: Speci men Type: BLOOD SPECIMENOrdering Facility: [facility] Address: [address] [place] [address] Performed By: #### 5 8410-2 ####[facility] [id number] [place] [address] [place] WBC (Bld) [#/Vol] 4.65 10*3/uL Normal 3.70-11.00 [facility] Comment on above: Order Comment: Speci men Type: BLOOD SPECIMENOrdering Facility: [facility] Address: [address] [place] [address] Performed By: #### 5 8410-2 ####[facility] [id number] [address] [place] CNPNon 03-19-2025 [facility] ([facility] LUISITO ZHONG ([id number]) 1980 M T Date Time Provider Department 03/19/25 ROBYN TAYLOR During your visit today, we recorded the following information about you: Colleen Hoffman LPN 03/19/2025 2:27 PM Signed Per Robyn: Please reach out to patient regarding mental health concerns from Dr. Garrett to see if he would like to come in for sooner visit to discuss mental health concerns. We will discuss colon cancer screening in setting of chronic anemia at upcoming July well visit. Robyn Taylor APRN.CNP I attempted to call patient Papi. No answer. I left a voice mail message for patient to return call to office. Colleen Hoffman LPN March 19, 2025 2:27 PM Eliza Hopkins 03/20/2025 8:03 AM Signed ----- Message from Robyn Taylor APRN.CNP sent at 03/18/2025 8:57 PM EDT ----- Please reach out to patient regarding mental health concerns from Dr. Garrett to see if he would like to come in for sooner visit to discuss mental health concerns. We will discuss colon cancer screening in setting of chronic anemia at upcoming July well visit. Robyn Taylor APRN.CNP ----- Message ----- From: Renay Garrett MD Sent: 02/27/2025 11:17 AM EDT To: DARYN Pablo Robyn, I just saw your patient Mr Zhong to establish for the warfarin clinic. He wants me to follow him for his coumadin but keep following with you as his PCP, which is fine, but he mentioned in his visit that his mental health is poor. Having some passive thoughts of things would be better if he were not here but no active thoughts of harming himself and did not need to go to the ED, but seems he would benefit from a primary care visit to discuss mental health. I also discussed with him that he should see you for follow up of anemia and should discuss getting colon cancer screening now that he is 44 and has anemia. Just wanted to make you aware. [facility] Eliza Hopkins 03/20/2025 8:04 AM Signed Called, left voicemail for patient to contact office to schedule appointment. Left detailed message informing patient Robyn does have available appointments today and on 03/21/2025 if interested. Eliza Hopkins Allergies As of Date: 03/19/2025 Noted Allergy Reaction HYDROMORPHONE 06/18/2019 9 - Itching TRAMADOL 10/27/2021 16 - Unknown Comments: Burning skin Date Reviewed: 03/07/2025 Reviewed by: Colleen Hoffman LPN - Fully Assessed Reason for Visit: mental health concerns [Other] Prescriptions as of 03/25/2025 - warfarin (COUMADIN) 5 mg tablet Take 7.5 mg (one and a half tablets) on Tuesday only. All the rest of the days, take one tablet (5 mg) daily. - albuterol HFA (PROVENTIL HFA, VENTOLIN HFA) 90 mcg/actuation inhaler Inhale 2 puffs as instructed every 4 hours as needed. - umeclidinium-vilanterol (ANORO ELLIPTA) 62.5-25 mcg/actuation inhaler Inhale 1 inhalation as instructed once daily. - DEXCOM G7 SENSOR xenia - ferrous sulfate 325 mg (65 mg iron) tablet Take iron daily with vitamin C to increase absorption. - ascorbic acid, vitamin C, (VITAMIN C) 500 mg tablet Take vitamin C daily with iron to increase absorption. - ciclopirox (LOPROX) 0.77 % cream APPLY TOPICALLY TO THE AFFECTED AREA TWICE DAILY NEEDED FOR RASH - levothyroxine (SYNTHROID) 150 mcg tablet Take 1 tablet by mouth daily before breakfast. - acetaminophen (TYLENOL) 500 mg tablet Take 1-2 tablets by mouth every 6 hours as needed for pain. Do not exceed 4000mg in 24 hours - aspirin 81 mg chewable tablet Take 1 tablet by mouth once daily. - insulin lispro (HUMALOG U-100 INSULIN) 100 unit/mL injection Continue insulin pump with home settings Home pump settings: Medtronic 780G, Humalog Basal Rate: 00:00 = 1.25 units/hr 4:00 = 1.30 units/hr 7:00 = 1.50 units/hr 11:00 = 1.60 units/hr 18:00 = 1.40 units/hr 23:00 = 1.20 units/hr Insulin:Carbohydrate ratio: 00:00 1 units per 8.5 g carbohydrate 17:00 1 units per 7 g carbohydrate Correction bolus: 1 unit insulin lowers glucose 35 mg/dL, correct to a target blood glucose of 110-130 mg/dL - cholecalciferol, Vitamin D3, (VITAMIN D3) 1,250 mcg (50,000 unit) cap capsule Take 50,000 Units by mouth one time a week. - traZODone (DESYREL) 100 mg tablet Take 100 mg by mouth daily at bedtime. - rosuvastatin (CRESTOR) 10 mg tablet Take 1 tablet by mouth daily at bedtime. - DULoxetine (CYMBALTA) 30 mg capsule Take 1 capsule by mouth once daily. - escitalopram oxalate (LEXAPRO) 20 mg tablet Take 1 tablet by mouth once daily. 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 [facility]on 03-15-2025 36 PC to pt mother and spoke with her, let her know to have pt call his coumadin clinic and discuss with them the situation as the surgeon stated to the patient that he must be completely off of blood thinning agents for this surgery. Then asked her to have the patient provide the coumadin clinic with the contact information of the surgeon's office so that they may discuss possible protocols for this. She verbalized understanding and will call our office if they need anything else. Normal [facility] 36 The patient was seen by the spinal surgeon today after seeing Dr Morris. He recommended neck surgery and he will need to be off of blood thinners 1 week prior and 3 days after. The patient was told by the Coumadin Clinic that he cannot stop his Coumadin. Please advise. The patient can be reached at his mom's number [phone] and if he is not there, please inform his mom Trice of the recommendations. [facility] 36 Echo scheduled 2 pm at [facility] Patient informed [facility] Cerv Spine 2 or 3 Viewson Cerv Spine 2 or 3 Views [facility] Imaging Services [address] [place] [address] Cerv Spine 2 or 3 Views MR#: [id number] Acct: [id number] Name: LUISITO ZHONG Rep #: [id number] : 1980 M 44 From: Roman Gee MD PCP: Care Physician,No Primary Status: DEP AMB Study: Cerv Spine 2 or 3 Views Date of Exam: 03/15/25 Exam# [id number] Ordering Dr: Julieta Riggs PROCEDURE: CERV SPINE 2 OR 3 VIEWS 03/15/2025 REASON FOR EXAM: NECK PAIN, CHRONIC TECHNIQUE: Procedure Code: RADSPCL Modality: DX Procedure: CERV SPINE 2 OR 3 VIEWS COMPARISON: Cervical spine series, 12/12/2024. FINDINGS: Flexion and extension lateral views of the cervical spine demonstrate no significant degenerative disc disease. There is no spondylolisthesis. There is no evidence of instability. RAD/Cerv Spine 2 or 3 Views IMPRESSION: No evidence of instability of the cervical spine. 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: Signed Normal [facility] Office Visiton 03-15-2025 Follow-up visit [id number] Italia Zhong 1980 M Date Provider Department Center 03/15/2025 [id number] MORRIS [facility] G None Family History Problem Relation Age of Onset Colon cancer Maternal Grandmother No Known Problems Father No Known Problems Mother Other Sister Comments: MS Heart disease Paternal Grandmother Family Status - Relation Status Age at Maternal Grandmother Father Alive Mother Alive Sister Alive Paternal Grandmother Maternal Grandfather Paternal Grandfather Level of Service:42531 IA OFFICE/OUTPATIENT ESTABLISHED MOD MDM 30 MIN Reason for Visit and Comments: Follow-up [206634] - Valvular disease Normal [facility] Orthopedic Visit Reporton Orthopedic Visit Report [facility] [address] [place] [address] OFFICE VISIT Date of Service: 03/15/25 MR#: [id number] Acct: [id number] Name: LUISITO ZHONG CHET Rep #: [id number] : 1980 Provider: Dr. Parminder Aldridge MD Age/Sex: 44/M Location: [facility] Status: Signed Intake Vital Signs 03/20/23 11:44 03/15/25 13:25 Height 6 ft 4 in 6 ft 4 in Weight: 243 lb BMI 29.5 Intake Visit Reasons: CERVICAL SPINE Chief Complaint: cervical spine Accompanied by: Mother Is patient in pain?: Yes (cervical spine) Pain scale (1-10): 3 Allergies tramadol Allergy (Intermediate, Verified 03/15/25 13:27) Rash hydromorphone (From Dilaudid) Allergy (Mild, Verified 03/15/25 13:27) Hives Medications ???Medication ???Instructions ???Recorded ???Confirmed ???Type cholecalciferol (vitamin D3) 10 10 mcg PO DAILY 03/20/23 03/15/25 History mcg (400 unit) tablet (Vitamin D3) duloxetine 30 mg capsule,delayed 30 mg PO DAILY 03/20/23 03/15/25 H istory release (Cymbalta) escitalopram oxalate 20 mg tablet 20 mg PO DAILY 03/20/23 03/15/25 History levothyroxine 150 mcg tablet 150 mcg PO DAILY 03/20/23 03/15/25 History (Euthyrox) loratadine 10 mg tablet (Allergy 10 mg PO DAILY 03/20/23 03/15/25 H istory Relief (loratadine)) rosuvastatin 5 mg tablet (Crestor) 5 mg PO DAILY 03/20/23 03/15/25 History ascorbic acid (vitamin C) 500 mg PO QDAY 03/15/25 03/15/25 History tablet ferrous sulfate 325 mg (65 mg mg PO QDAY 03/15/25 03/15/25 Histo ry iron) tablet (FeroSul) insulin lispro 100 unit/mL subcut 03/15/25 03/15/25 History subcutaneous solution warfarin 5 mg tablet mg PO 03/15/25 03/15/25 History PFS Medical History (Updated 03/15/25 @ 15:[address] Parminder Aldridge MD) Cervical stenosis of spine Degenerative disc disease, cervical Cervical myelopathy Hypothyroidism Hyperlipidemia COVID-19 Aortic stenosis Diabetes Surgical History History of open heart surgery Social History Smoking Status: Current every day smoker tobacco type: cigarettes HPI CERVICAL SPINE Details: This documentation accurately reflects the service provided and the decisions made by me, Dr. Parminder Aldridge MD 03/15/25 2046. Part of today???s visit was documented by Brinda Kuhn RN, acting as scribe. LUISITO ZHONG is a 44 year old M here today for cervical spine pain. He complains of stiffness and limited ROM in his neck. The pain does radiate up into his head. This has been going on since November insidious onset. The pain does intermittently radiate down into his right arm into the ring and pinky finger. He reports a change in his balance but also has diabetic neuropathy and is not sure if that contributes to this. He was experiencing numbness into his right arm but reports this has improved. He was dropping items from his hands when this started in November but he reports this also has improved. He states the pain has not improved. He has seen Dr. Mujica in pain management, he did not have any injections yet. He did PT but it made the pain worse and he had to stop. He states the pain will flare up with certain activities. He did see an orthopedic surgeon at [facility] for this. A nerve conduction test was ordered and is scheduled for March 27. He does take Warfarin. He had open heart surgery in December for an aortic valve replacement at [facility]. He does get short of breath due to the cardiac issues. His recent A1c is 6.1. He denies a history of strokes. The patient is a 44-year-old male presenting with neck pain and associated symptoms. The neck pain began in November, initially presenting as pain radiating to the back of the head and down the right arm, causing numbness in the right pinky and ring fingers. The pain was exacerbated by looking down and was accompanied by numbness and tingling. The patient underwent an MRI, which revealed cervical spinal stenosis with spinal cord compression, primarily affecting the left side, although symptoms were more pronounced on the right. Physical therapy was attempted but was discontinued due to aggravation of symptoms. The patient reports some improvement in arm symptoms but persistent neck pain. In December, the patient underwent a planned aortic valve replacement at the [facility], which was a revision surgery due to failure of a previous prosthetic valve. The patient was hospitalized for 5-6 days and is currently on lifelong warfarin therapy. Post-surgery, the patient experienced exacerbation of neck symptoms, possibly due to prolonged bed rest. The patient has a history of diabetic neuropathy, which contributes to balance issues and numbness in the legs. The most recent HbA (more content not included)... Normal [facility] Progress Noteon 03-15-2025 Progress Note [facility] Card[facility] Note Assessment and Plan: # Subaortic membrane: # Aortic valve replacement: Has had 3 sternotomies for separate cardiac surgeries: 12/2018 (subaortic membrane resection), 01/2022 (re-resection of sub-aortic membrane and aortic valve replacement), 12/2024 (aortic valve and ascending aorta replacement via Bentall procedure). Most recent surgical intervention was due to prosthetic aortic valve degeneration with placement of mechanical Bentall [address] Dao composite graft 12/2024. The aortic anastomosis was aortic root to mid-ascending in review of the operative note. The coronary buttons were reimplanted to the prosthesis. Trivial CAD based on pre-operative cath. Today is euvolemic, on examination his valve has a crisp mechanical click with a very subtly systolic flow murmur that does not suggest any dysfunction of the valve. All prior imaging at our hospital and [facility] have demonstrated preserved biventricular function - Warfarin, goal INR 2.0-3.0, preferably 2.5 if possible (2020 ACC guidelines) as he does not have any other risk factors that would recommend higher target INR (low Ef, mitral stenosis, atrial fibrillation) - Aspirin 81mg--he does not have a separate indication currently for ASA, warfarin alone is typically sufficient for bileaflet mechanical -- in review of cardiac surgery DC notes from [facility] the medication was continued though not specifically referenced. Will continue for time being and plan on dropping a year out - Echocardiogram - Referral placed to cardiac rehab and strongly encouraged - Strongly counseled vape (and illicit substance) cessation given risk introduction of bacterial pathogens with that habit - Indicated for abx ppx prior to dental procedures - Avoiding beta leodan given junctional rhythm post-op # Ascending aorta repair: With the composite graft at time of aortic valve replacement. Will need interval imaging with echo for proximal ascending aorta # Tricuspid valve repair: Hernandez MC3 tricuspid ring at the time of second cardiac surgery in 2021. History of Present Illness: Luisito Zhong is a 44 y.o. male presenting for evaluation in the cardiology clinic. Luisito was evaluated in follow-up, this is our first visit since his aortic valve and ascending aorta surgery. He is doing better--he had MSK discomfort for several weeks following the surgery and course complicated by pleural effusions, however he has overall improved in recent weeks. Intermittent but not persistent swelling. No orthopnea/PND. He has tried to resume some activity. He is inquiring about expected recovery of functional capacity as he is in the process of applying for disability. He freely admits to using vape daily currently, and did use cocaine a few times in the past month. He is now in a sober living facility in [place] and this is a stable environment, jennifer-based practice that is helping him to avoid substance abuse. He is optimistic that this will be a mcc living situation for him that is safe and helps him to say sober. Taking warfarin, this is followed via the coumadin clinic in [place]. He is following closely with primary care in that area. Cardiovascular History: Luisito Zhong is a former patient of Dr. Perez who presented to my clinic 08/2024. 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 Cabrera and Dr. Estevez. Unfortunately, not long after this surgical intervention, he had recurring symptoms. Repeat workup, including TTE, LAWSON and CMR demonstrated recurrent subaortic membrane. He sought surgical opinion at [facility], and ultimately underwent repeat surgical intervention on 01/26/[address] Roscoe Arias. That procedure included membrane removal and aortic valve replacement with #25 Inspiris prosthetic aortic valve, as well as tricuspid repair with Hernandez MC3 tricuspid ring. Re-presented to Dr. Perez for follow-up, in 05/2024. At that visit, he reported increasing shortness of breath, his primary symptom with the obstructive LVOT. Echo at OSH demonstrated repeat gradient through the valve in 07/2024; he was re-referred to [facility] and Dr. 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 Pre-op cath was negative for CAD. Cardiovascular Data: Coronary Angiogram: Cath 12/2024 + + IMPRESSION/PLAN + + Impression: -Co-dominant coronary artery system without obstructive CAD. Physical Examination: Vitals: Vitals: 03/15/25 0840 BP: 130/80 BP Location: Right arm Patient Position: Sitting BP Cuff Size: Large adult Pulse: 97 SpO2: 97% Weight: 240 lb 12.8 oz (109 kg) Height: 6' 4 (1.93 m) Body (more content not included)... [facility] CNCOon 03-14-2025 CNCO Letter Text [facility] CNPNon 03-08-2025 CNPN [facility] CNOVon 03-07-2025 KEMAR Office Visit (FAMMAS ) LUISITO ZHONG ([id number]) 1980 M [facility] Date Time Provider Department 03/07/25 8:20 AM ROBYN TAYLOR During your visit today, we recorded the following information about you: Temperature Pulse Respiration Blood pressure 97.8 degrees 92/minute 16/minute 122/74 Weight Height 110.1 kg 1.93 m Colleen Hoffman LPN 03/07/2025 11:14 AM Addendum Papi is here today due to mild shortness of breath on exertion This has been happening since his heart surgery December 25 Patient goes to the Coumadin Clinic in [place] he missed a couple dose of his medication last week Patient is asking if he can get an INR test done today because he cannot make it to the [place] [facility] for a couple of weeks Per Robyn patient does have a standing order for POC INR testing INR done in office today (result 2.0) with instructions per Robyn for patient contact the Coumadin (anticoagulant) Clinic in [place] for dosing instructions No refills needed Colleen Hoffman, CARE NAVIGATOR March 07, 2025 8:31 AM [id number] Robyn Taylor APRN.CNP 03/07/2025 8:59 AM Signed - Continue taking your warfarin (Coumadin) exactly as prescribed and avoid missing doses. - Bring today?s INR result (2.0) to the Coumadin clinic and discuss with them and Dr. Morris whether your target range should be adjusted. - Continue your daily iron supplement with vitamin C as directed. - When you stand up from lying or sitting, move slowly: sit up, pump your legs briefly, then stand to help prevent dizziness. - At your March [address] Morris, discuss: - Raising your INR target range (for example, to 2.5-3.5) - Starting cardiac rehab to improve your exercise tolerance - Sign a medical release at check-out so Dr. Morris can fax your visit notes to our office (fax [phone]). - See Dr. Marysol Cardoza on March 12 and sign a release for [facility] to send your test results. Your neuropathy and nerve conduction tests are scheduled there on March 13. - Monitor for any of the following and contact your detective homicide squad or go to urgent care/ER if they occur: - Severe shortness of breath or inability to perform minimal activity (for example, walking to the bathroom) - Swelling that worsens or does not improve after rest - Sudden weight gain of more than 5 pounds in one day - Plan to return for your routine well visit on July 16, 2025. Take all medications as prescribed. Continue to follow with specialist providers. Healthy diet and regular aerobic exercise recommended. Please call the office at [phone] Option 4 or send a direct message via Medium with any questions related to your visit today. Time throughout the day is reserved for patients with scheduled appointments. Please kindly allow 2-3 business days for staff to respond to phone calls or Medium messages. Robyn Taylor APRN.CNP 03/07/2025 10:48 AM Signed This note was created using [employer] technology with patient consent. Subjective The patient is a 44-year-old male with history of aortic stenosis status-post recent mechanical aortic valve placement, presenting for evaluation of exertional dyspnea and ankle edema. Dyspnea: - Luisito Zhong noted dyspnea on exertion when attempting to return to work this past week. - Dyspnea was present prior to returning to work, particularly when ascending stairs. - Denies dyspnea at rest. - Reports improvement in fatigue and breathing compared to pre-surgery status (placement of mechanical aortic valve on 12/25/[address] 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 - Iron deficient; reports dizziness with position changes; recently prescribed oral iron replacement with vitamin C to increase absorption; reports compliance. - No cardiac rehab post-surgery; did participate in cardiac rehab after initial porcine valve placement in 2021. Lower Extremity Edema: - Mild ankle edema observed; symptoms noted last week after increased periods of standing during work. - Edema resolves by morning after rest. - No significant weight gain or increase from baseline exertional dyspnea noted; weight stable at 242 lbs since last visit on 02/13. Aortic Valve Replacement: - Mechanical aortic valve replacement performed on 12/[address] Beavers; 10 weeks post-op. 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 - Current INR is 2.0; goal INR 2.0-3.0; previous readings include 1.9 on 02/22, 2.4 on 02/06, and 2.8 on 01/23. - Luisito missed a couple of doses of warfarin last week due to work schedule and change in routine. 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 [facility] 03-07-2025 CAROLIN Telephone (LIQUITY) LUISITO ZHONG ([id number]) 1980 M [facility] Date Time Provider Department 03/07/25 RENAY GARRETT During your visit today, we recorded the following information about you: Colleen Hoffman LPN 03/07/2025 11:15 AM Signed I called [facility] and spoke with triage nurse Jens to give instructions for the INR test result of 2.0 today. Jens said that their doctors will not manage Coumadin dosing if patient is seeing another provider. Jens is going to consult with Renay Garrett MD and then report back once she gets an answer. Patient has multiple appointments scheduled as follows: 07/16/2025 with Robyn Taylor for annual wellness and then on 02/28/2026 for an annual wellness with Renay Garrett. He also had an appointment with the [place] [facility] today at 12:00 pm Colleen Hoffman LPN March 07, 2025 11:15 AM Carolina Lara RN 03/07/2025 4:31 PM Signed Much confusion with this patient. Attempted to reach pt again today with no answer. When this nurse spoke with pt last evening, he wanted to keep Robyn Taylor as his PCP. Someone somewhere told him that he needed to have a doctor in [place] to handle his Coumadin/anticoagulation. Pt has been coming to the Coumadin Clinic here in [place] and seeing nurse Alyx. Talked with Alyx and she states that pt's PCP had referred pt to the [facility] pharmacy and that is who is managing pt's Coumadin/anticoagulation in coordination with Alyx. Pt does not need any other provider to monitor anticoagulation/Coumadin. Pt's PCP will remain Robyn Taylor and he can continue to come and have his INRs done with Alyx at the [place] [facility] and have his anticoagulation/Coumadin monitored by the [facility]. Pt does NOT need to establish with any other providers here in [place] and does not need to see Dr. Renay Garrett anymore. LM on pt's cell that as we discussed last evening, he can keep his current PCP Robyn Taylor. Attempted to contact her office several times throughout the day but never got to speak with anyone-no matter which number we hit, all of them went to voicemsil. Will route this msg to that office to hopefully clarify that pt does not need to establish with anyone else at this time or see Dr. Garrett anymore. Robyn Taylor APRN.SENIOR TECHNICAL ARCHITECT 03/07/2025 7:59 PM Signed Carolina: Thank you for your message. The office number is [phone] option 4 to reach corporate receptionist. Colleen: Please attempt to notify patient of above information since Carolina was unable to reach him. If unable to reach patient, please send letter. He may cancel his February 2026 well visit scheduled with Dr. Renay Garrett in [place] if he would like me to remain his PCP. Thank you. DARYN Pablo Tawnya A, LPN 03/08/2025 10:57 AM Signed I spoke with patient Papi today and advised him of all information regarding keeping Robyn Taylor APRN.CNP as his primary care provider and continuing INR testing at the [place] [facility]. Papi is agreeable to all. The February 2026 appointment has been cancelled. Colleen Hoffman LPN March 08, 2025 10:55 AM Robyn Taylor APRN.CNP 03/08/2025 12:32 PM Signed Thank you! Robyn Taylor APRN.Jaelyn Boles [facility] 03/08/2025 5:33 PM Signed Per [facility]: Table 24. Target INR by Indication Antiphospholipid syndrome (presence of lupus anticoagulant or antiphospholipid antibodies) 2.0 - 3.0 Left ventricular assist device (Heartware, HeartMate 2, HeartMate 3) 2.0 - 3.0 Mechanical valve replacement Aortic position* 2.0 - 3.0 Aortic position (On-X valve, 3 months after surgery) 1.5 - 2.0 Mitral position 2.5 - 3.5 Stroke prevention in the setting of atrial fibrillation 2.0 - 3.0 Treatment of DVT or PE 2.0 - 3.0 VTE prophylaxis following total hip arthroplasty, total knee arthroplasty, or hip fracture surgery 2.0 - 3.0 * Goal INR 2.5 - 3.5 in patients with mechanical aortic valve with additional risk factors (i.e., AF, previous thromboembolism, LV dysfunction, or hypercoagulable conditions) or an older-generation mechanical (e.g., [id number]). INR goal of 2.0-3.0 for patient is appropriate given no other reported risk factors. Will confirm goal INR with cardiology and referring. Jaelyn Cross, Robyn Lincoln APRN.SENIOR TECHNICAL ARCHITECT 03/09/2025 6:17 PM Addendum Wolfgang Karen! I discussed goal INR with patient during our recent office visit and asked him to verify this with his detective homicide squad Dr. Erin Morris ([facility]) at upcoming visit on 03/15. Per documentation from recent hospitalization for valve replacement surgery on 12/25, goal INR is 2.0 - 3.0 (Target 2.5) per note entered by Emmett Angel [facility] on 12/25. His valve is mechanical but does not have metal leaflets (Mechanical Bentall - [address] Catarina Composite Graft), so this range would be appropriate from my understanding. Si (more content not included)... [facility] INR (POC)on 03-07-2025 INR Coag (PPP) [Relative time] 2.0 {INR} High 0.8 - 1.2 [facility] Internal Quality Check Acceptable [facility] Interpretation and review of laboratory results Abnormal [facility] Location:[facility], [address], [place], [id number] [place] [address] [facility] Normal [facility] 03-04-2025 [facility] Nurse Triage (KULWINDER ) LUISITO ZHONG ([id number]) 1980 M T Date Time Provider Department 03/04/25 VICTORINA JUARES During your visit today, we recorded the following information about you: Victorina Juares RN 03/04/2025 4:06 PM Signed Patient requesting refill of inhaler Anoro to [facility] on [facility], stating this has helped his symptoms previously and his breathing has not returned to 100% since. ROXANA Levin Kristin K, LUMBER HACKER.SENIOR TECHNICAL ARCHITECT 03/04/2025 5:05 PM Signed Yes please triage! I do not recall ever discussing this with him previously. Looks like Sruthi Ambroiso had last sent Anoro to tx chronic bronchitis but rx in December and it's not on his problem list so I did not review it. He may be in active exacerbation if hasn't had inhaler in several months. I will send refill but may need sooner visit for steroids. Robyn Taylor APRN.Robyn Plunkett APRN.QAMAR 03/04/2025 5:08 PM Signed Also sending albuterol HFA Q4-6 hours PRN dyspnea, wheezing. Robyn Taylor APRN.Robyn Plunkett APRN.QAMAR 03/04/2025 5:08 PM Signed Addended by: ROBYN TAYLOR on: 03/04/2025 05:08 PM Modules accepted: Victorina Damon RN 03/05/2025 7:56 AM Signed Called patient at [phone] to triage. No answer. Left voicemail with office's call back number. Victorina Juares RN Allergies As of Date: 03/04/2025 Noted Allergy Reaction HYDROMORPHONE 06/18/2019 9 - Itching TRAMADOL 10/27/2021 16 - Unknown Comments: Burning skin Date Reviewed: 02/28/2025 Reviewed by: Vamshi Benson MD - Fully Assessed Reason for Visit: Refill Request [94] Difficulty Breathing [206] Visit Diagnoses:Simple chronic bronchitis (HCC) [J41.0] History of asthma [Z87.09] Shortness of breath [R06.02] Order(s):albuterol HFA (PROVENTIL HFA, VENTOLIN HFA) 90 mcg/actuation inhalerInhale 2 puffs as instructed every 4 hours as needed.Disp: 18 gRfl: 3 umeclidinium-vilanterol (ANORO ELLIPTA) 62.5-25 mcg/actuation inhalerInhale 1 inhalation as instructed once daily.Disp: 45 eachRfl: 3 Prescriptions as of 03/05/2025 - albuterol HFA (PROVENTIL HFA, VENTOLIN HFA) 90 mcg/actuation inhaler Inhale 2 puffs as instructed every 4 hours as needed. - umeclidinium-vilanterol (ANORO ELLIPTA) 62.5-25 mcg/actuation inhaler Inhale 1 inhalation as instructed once daily. - DEXCOM G7 SENSOR xenia - ferrous sulfate 325 mg (65 mg iron) tablet Take iron daily with vitamin C to increase absorption. - ascorbic acid, vitamin C, (VITAMIN C) 500 mg tablet Take vitamin C daily with iron to increase absorption. - ciclopirox (LOPROX) 0.77 % cream APPLY TOPICALLY TO THE AFFECTED AREA TWICE DAILY NEEDED FOR RASH - warfarin (COUMADIN) 5 mg tablet Take 1 tablet by mouth once daily. Take one half tablet on 01/01. Check INR on 01/02. Further dosing per Primary Care Provider. Take by mouth daily as directed. - levothyroxine (SYNTHROID) 150 mcg tablet Take 1 tablet by mouth daily before breakfast. - acetaminophen (TYLENOL) 500 mg tablet Take 1-2 tablets by mouth every 6 hours as needed for pain. Do not exceed 4000mg in 24 hours - aspirin 81 mg chewable tablet Take 1 tablet by mouth once daily. - insulin lispro (HUMALOG U-100 INSULIN) 100 unit/mL injection Continue insulin pump with home settings Home pump settings: Medtronic 780G, Humalog Basal Rate: 00:00 = 1.25 units/hr 4:00 = 1.30 units/hr 7:00 = 1.50 units/hr 11:00 = 1.60 units/hr 18:00 = 1.40 units/hr 23:00 = 1.20 units/hr Insulin:Carbohydrate ratio: 00:00 1 units per 8.5 g carbohydrate 17:00 1 units per 7 g carbohydrate Correction bolus: 1 unit insulin lowers glucose 35 mg/dL, correct to a target blood glucose of 110-130 mg/dL - cholecalciferol, Vitamin D3, (VITAMIN D3) 1,250 mcg (50,000 unit) cap capsule Take 50,000 Units by mouth one time a week. - traZODone (DESYREL) 100 mg tablet Take 100 mg by mouth daily at bedtime. - rosuvastatin (CRESTOR) 10 mg tablet Take 1 tablet by mouth daily at bedtime. - DULoxetine (CYMBALTA) 30 mg capsule Take 1 capsule by mouth once daily. - escitalopram oxalate (LEXAPRO) 20 mg tablet Take 1 tablet by mouth once daily. 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 [facility]JARAD LEE[facility] LUISITO ZHONG ([id number]) 1980 M [facility] Date Time Provider Department 02/28/25 11:30 AM VAMSHI BENSON During your visit today, we recorded the following information about you: Pulse Blood pressure Height 95/minute 122/70 1.93 m Vamshi Benson MD 03/06/2025 3:40 PM Signed Luisito Marques Farheen is a 44 year old male here for evaluation of his peripheral vascular disease. He was referred by his pcp explosive expert after review of his neuropathy. She referred him to vascular medicine for evaluation of circulatory concerns. He has had 3 cardiac surgeries, first in 2019, last very recently, as well as DM1 for 41 years. He complains of BLE pain. It has been present for years. He vapes but does not smoke. We discussed risks of nicotine in pad. He is on coumadin, crestor He has DM1 with polyneuropathy. He is s/p avr. He had the valve replacement only a few months ago. PVR done 12/19/24 showed normal BABATUNDE with R 1.12 and L 1.19. Bilateral Leg Pain: - Chronic bilateral leg pain, described as aching and similar to post-marathon fatigue. Sites and types of pain vary and migrate. - Pain recently in R thigh, then calf, now foot. - Associated with tingling and numbness on the top of the foot. - Reports constant tiredness and fatigue in legs. We did discuss that some of this could be related to his 3 cardiac surgeries in 2018, 2021, and 2024. - Difficulty recovering from physical activities. - EMG test scheduled for further evaluation. He has palpable B DP pulses. We discussed that from a vascular standpoint, he has little evidence of clinically signfiicant vascular disease. However given his history he should quit nicotine, continue to walk, good BS control and take good care of his feet. I have little suspicion that his leg pain is secondary to pad. His symptoms include: Claudication No Location: Distance: Rest pain No Tissue loss No Location: We also discussed the importance of good foot care, wearing good shoes, and avoiding trauma. The patient understands that a non-healing wound could result in amputation. His prior surgery includes: PAST SURGICAL HISTORY Procedure Laterality Date HIP SURGERY HX Right PAST SURGICAL HISTORY OF Left shoulder scope PAST SURGICAL HISTORY OF 12/2018 aortic valve surgery to help open up REVISE MEDIAN N/CARPAL TUNNEL SURG Bilateral RT ELBOW CUBITAL TUNNEL ONLY Right SHOULDER SURGERY HX Right x4 HISTORIES: PAST MEDICAL HISTORY Diagnosis Date Acquired hypothyroidism Alcohol abuse sober since 2013 Anxiety and depression 04/04/2019 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 Has been clean since 06/21/2018. Went to treatment at [facility] for 9 months Mitral regurgitation Murmur Pleural effusion on right 01/14/2025 Rotator cuff syndrome 06/18/2015 Subaortic membrane (HCC) with stenosis Tetrahydrocannabinol (THC) use disorder, mild, in sustained remission, in controlled environment, abuse Type 1 diabetes mellitus with diabetic polyneuropathy (HCC) PAST SURGICAL HISTORY Procedure Laterality Date HIP SURGERY HX Right PAST SURGICAL HISTORY OF Left shoulder scope PAST SURGICAL HISTORY OF 12/2018 aortic valve surgery to help open up REVISE MEDIAN N/CARPAL TUNNEL SURG Bilateral RT ELBOW CUBITAL TUNNEL ONLY Right SHOULDER SURGERY HX Right x4 SOCIAL HISTORY[1] MEDICATIONS: Current Outpatient Medications Medication Sig Dispense Refill ferrous sulfate 325 mg (65 mg iron) tablet Take iron daily with vitamin C to increase absorption. 90 tablet 3 ascorbic acid, vitamin C, (VITAMIN C) 500 mg tablet Take vitamin C daily with iron to increase absorption. 90 tablet 3 ciclopirox (LOPROX) 0.77 % cream APPLY TOPICALLY TO THE AFFECTED AREA TWICE DAILY NEEDED FOR RASH warfarin (COUMADIN) 5 mg tablet Take 1 tablet by mouth once daily. Take one half tablet on 01/01. Check INR on 01/02. Further dosing per Primary Care Provider. Take by mouth daily as directed. 30 tablet 0 levothyroxine (SYNTHROID) 150 mcg tablet Take 1 tablet by mouth daily before breakfast. acetaminophen (TYLENOL) 500 mg tablet Take 1-2 tablets by mouth every 6 hours as needed for pain. Do not exceed 4000mg in 24 hours aspirin 81 mg chewable tablet Take 1 tablet by mouth once daily. 30 tablet 2 insulin lispro (HUMALOG U-100 INSULIN) 100 unit/mL injection Continue insulin pump with home settings Home pump settings: Medtronic 780G, Humalog Basal Rate: 00:00 = 1.25 units/hr 4:00 = 1.30 units/hr 7:00 = 1.50 units/hr 11:00 = 1.60 units/hr 18:00 = 1.40 units/hr 23:00 = 1.20 units/hr Insulin:Carbohydrate ratio: 00:00 1 units per 8.5 g carbohydrate 17:00 1 units pe (more content not included)... Normal [facility] CNOVon 02-27-2025 CNOV Normal [facility] CNPNon 02-27-2025 CNPN Normal [facility] Relevant diagnostic tests/la boratory data Narrativeon 02-21-2025 Fall risk assessment no [facility] Work Phone: MEDS REVIEW Documentation of cur rent medications (procedure) [facility] Work Phone: MEDS REVIEWD Medications reviewed with changes [facility] Work Phone: MRI HX of the cervical spin e on 01/16/2025 at [facility]. Work Phone: XRAY HX of the cervical spin e on 12/12/2024 at [facility] Work Phone: CNPRoxi 02-19-2025 CNPN Telephone (AGVASDubb) LUISITO ZHONG ([id number]) 1980 M T Date Time Provider Department 02/19/25 JOSE ELIAS FISHER During your visit today, we recorded the following information about you: Betty Hassan 02/19/2025 2:13 PM Signed new pt internal referral from Robyn Taylor APRN.[facility] for PVD (Numbness of right foot, Type 1 diabetes mellitus with diabetic polyneuropathy) - PVR 12/19/24 Left vm for pt to call office to schedule consult Allergies As of Date: 02/19/2025 Noted Allergy Reaction HYDROMORPHONE 06/18/2019 9 - Itching TRAMADOL 10/27/2021 16 - Unknown Comments: Burning skin Date Reviewed: 02/13/2025 Reviewed by: Colleen Hoffman LPN - Fully Assessed Reason for Visit: Appointment [186] Cmt: appt Prescriptions as of 02/19/2025 - ElasticBoxCOM G7 SENSOR xenia - ferrous sulfate 325 mg (65 mg iron) tablet Take iron daily with vitamin C to increase absorption. - ascorbic acid, vitamin C, (VITAMIN C) 500 mg tablet Take vitamin C daily with iron to increase absorption. - ciclopirox (LOPROX) 0.77 % cream APPLY TOPICALLY TO THE AFFECTED AREA TWICE DAILY NEEDED FOR RASH - warfarin (COUMADIN) 5 mg tablet Take 1 tablet by mouth once daily. Take one half tablet on 01/01. Check INR on 01/02. Further dosing per Primary Care Provider. Take by mouth daily as directed. - levothyroxine (SYNTHROID) 150 mcg tablet Take 1 tablet by mouth daily before breakfast. - furosemide (LASIX) 20 mg tablet Take 1 tablet by mouth once daily for 5 days. - potassium chloride ER (KLOR-CON) 20 mEq tablet Take 1 tablet by mouth once daily. - cyclobenzaprine (FLEXERIL) 5 mg tablet Take 1 tablet by mouth once daily as needed. - acetaminophen (TYLENOL) 500 mg tablet Take 1-2 tablets by mouth every 6 hours as needed for pain. Do not exceed 4000mg in 24 hours - aspirin 81 mg chewable tablet Take 1 tablet by mouth once daily. - pantoprazole DR (PROTONIX) 20 mg tablet Take 1 tablet by mouth daily at 6 am for 14 days. - polyethylene glycol 3350 17 gram/dose powder Take 17 g by mouth once daily as needed for constipation. Dissolve dose in 4 - 8 ounces of liquid and take as directed. To prevent constipation during post op recovery. Stop when no longer needed. - insulin lispro (HUMALOG U-100 INSULIN) 100 unit/mL injection Continue insulin pump with home settings Home pump settings: Medtronic 780G, Humalog Basal Rate: 00:00 = 1.25 units/hr 4:00 = 1.30 units/hr 7:00 = 1.50 units/hr 11:00 = 1.60 units/hr 18:00 = 1.40 units/hr 23:00 = 1.20 units/hr Insulin:Carbohydrate ratio: 00:00 1 units per 8.5 g carbohydrate 17:00 1 units per 7 g carbohydrate Correction bolus: 1 unit insulin lowers glucose 35 mg/dL, correct to a target blood glucose of 110-130 mg/dL - cholecalciferol, Vitamin D3, (VITAMIN D3) 1,250 mcg (50,000 unit) cap capsule Take 50,000 Units by mouth one time a week. - traZODone (DESYREL) 100 mg tablet Take 100 mg by mouth daily at bedtime. - rosuvastatin (CRESTOR) 10 mg tablet Take 1 tablet by mouth daily at bedtime. - DULoxetine (CYMBALTA) 30 mg capsule Take 1 capsule by mouth once daily. - escitalopram oxalate (LEXAPRO) 20 mg tablet Take 1 tablet by mouth once daily. Problem List As Of Date 02/19/2025 Noted Resolved Impingement syndrome of right shoulder [M75.41] 08/13/2015 HTN (hypertension) [I10] 08/27/2015 Type 1 diabetes mellitus with diabetic polyneur* Acquired hypothyroidism [E03.9] Former smoker [Z87.891] Subaortic membrane [Q24.4] Mitral regurgitation [I34.0] Alcohol abuse [F10.10] History of drug abuse (HCC) [F19.11] 04/04/2019 Mixed anxiety and depressive disorder [F41.8] 04/04/2019 Dyspnea [R06.00] 12/31/2021 Dyslipidemia [E78.5] 12/31/2021 Obesity (BMI 30-39.9) [E66.9] 12/31/2021 Discharge planning issues [Z75.8] 01/22/2022 Pre-op testing [Z01.818] 01/22/2022 12/19/2024 Atelectasis [J98.11] 01/26/2022 Post-op pain [G89.18] 01/26/2022 SOB (shortness of breath) [R06.02] 01/26/2022 Tricuspid regurgitation [I07.1] 01/26/2022 Aortic regurgitation [I35.1] 01/26/2022 Obesity, Class II, BMI 35-39.9 [E66.812] 01/27/2022 Hypervolemia [E87.70] 01/28/2022 Encounter for support and coordination of trans*01/28/2022 Nicotine use disorder, F17.2 [F17.200] 01/31/2022 History of asthma [Z87.09] 09/18/2020 History of cocaine use [F14.91] 03/26/2013 HLD (hyperlipidemia) [E78.5] 08/22/2013 Hypoglycemia [E16.2] 01/07/2023 Chronic right shoulder pain [M25.511, G89.29] 01/27/2018 Pain in joint, shoulder region [M25.519] 05/23/2013 Substance abuse (HCC) [F19.10] 09/18/2020 Vitamin D deficiency [E55.9] 01/07/2023 DKA, type 1, not at goal (HCC) [E10.10] 02/06/2024 02/10/2024 Acute hypoxemic respiratory failure (HCC) [J96.*02/07/2024 02/10/2024 Severe sepsis (HCC) [A41.9, R65.20] 02/07/2024 02/10/2024 High anion gap metabolic acidosis [E87.29] 02/07/2024 02/10/2024 (more content not included)... Normal [facility] CNPN Telephone ([employer]) LUISITO ZHONG ([id number]) 1980 M T Date Time Provider Department 02/19/25 ROBYN TAYLOR During your visit today, we recorded the following information about you: Stacia Valdivia MA 02/19/2025 9:02 AM Signed Items addressed in this encounter: Fax/Forms Vascular referral faxed to Vascular referral info given via infibond Able to close encounter. Stacia Valdivia MA February 19, 2025 8:57 AM 8:57 AM Allergies As of Date: 02/19/2025 Noted Allergy Reaction HYDROMORPHONE 06/18/2019 9 - Itching TRAMADOL 10/27/2021 16 - Unknown Comments: Burning skin Date Reviewed: 02/13/2025 Reviewed by: Colleen Hoffman LPN - Fully Assessed Reason for Visit: Vascular referral faxed to Vascular [Other] Prescriptions as of 02/19/2025 - Napartner G7 SENSOR xenia - ferrous sulfate 325 mg (65 mg iron) tablet Take iron daily with vitamin C to increase absorption. - ascorbic acid, vitamin C, (VITAMIN C) 500 mg tablet Take vitamin C daily with iron to increase absorption. - ciclopirox (LOPROX) 0.77 % cream APPLY TOPICALLY TO THE AFFECTED AREA TWICE DAILY NEEDED FOR RASH - warfarin (COUMADIN) 5 mg tablet Take 1 tablet by mouth once daily. Take one half tablet on 01/01. Check INR on 01/02. Further dosing per Primary Care Provider. Take by mouth daily as directed. - levothyroxine (SYNTHROID) 150 mcg tablet Take 1 tablet by mouth daily before breakfast. - furosemide (LASIX) 20 mg tablet Take 1 tablet by mouth once daily for 5 days. - potassium chloride ER (KLOR-CON) 20 mEq tablet Take 1 tablet by mouth once daily. - cyclobenzaprine (FLEXERIL) 5 mg tablet Take 1 tablet by mouth once daily as needed. - acetaminophen (TYLENOL) 500 mg tablet Take 1-2 tablets by mouth every 6 hours as needed for pain. Do not exceed 4000mg in 24 hours - aspirin 81 mg chewable tablet Take 1 tablet by mouth once daily. - pantoprazole DR (PROTONIX) 20 mg tablet Take 1 tablet by mouth daily at 6 am for 14 days. - polyethylene glycol 3350 17 gram/dose powder Take 17 g by mouth once daily as needed for constipation. Dissolve dose in 4 - 8 ounces of liquid and take as directed. To prevent constipation during post op recovery. Stop when no longer needed. - insulin lispro (HUMALOG U-100 INSULIN) 100 unit/mL injection Continue insulin pump with home settings Home pump settings: Medtronic 780G, Humalog Basal Rate: 00:00 = 1.25 units/hr 4:00 = 1.30 units/hr 7:00 = 1.50 units/hr 11:00 = 1.60 units/hr 18:00 = 1.40 units/hr 23:00 = 1.20 units/hr Insulin:Carbohydrate ratio: 00:00 1 units per 8.5 g carbohydrate 17:00 1 units per 7 g carbohydrate Correction bolus: 1 unit insulin lowers glucose 35 mg/dL, correct to a target blood glucose of 110-130 mg/dL - cholecalciferol, Vitamin D3, (VITAMIN D3) 1,250 mcg (50,000 unit) cap capsule Take 50,000 Units by mouth one time a week. - traZODone (DESYREL) 100 mg tablet Take 100 mg by mouth daily at bedtime. - rosuvastatin (CRESTOR) 10 mg tablet Take 1 tablet by mouth daily at bedtime. - DULoxetine (CYMBALTA) 30 mg capsule Take 1 capsule by mouth once daily. - escitalopram oxalate (LEXAPRO) 20 mg tablet Take 1 tablet by mouth once daily. Problem List As Of Date 02/19/2025 Noted Resolved Impingement syndrome of right shoulder [M75.41] 08/13/2015 HTN (hypertension) [I10] 08/27/2015 Type 1 diabetes mellitus with diabetic polyneur* Acquired hypothyroidism [E03.9] Former smoker [Z87.891] Subaortic membrane [Q24.4] Mitral regurgitation [I34.0] Alcohol abuse [F10.10] History of drug abuse (HCC) [F19.11] 04/04/2019 Mixed anxiety and depressive disorder [F41.8] 04/04/2019 Dyspnea [R06.00] 12/31/2021 Dyslipidemia [E78.5] 12/31/2021 Obesity (BMI 30-39.9) [E66.9] 12/31/2021 Discharge planning issues [Z75.8] 01/22/2022 Pre-op testing [Z01.818] 01/22/2022 12/19/2024 Atelectasis [J98.11] 01/26/2022 Post-op pain [G89.18] 01/26/2022 SOB (shortness of breath) [R06.02] 01/26/2022 Tricuspid regurgitation [I07.1] 01/26/2022 Aortic regurgitation [I35.1] 01/26/2022 Obesity, Class II, BMI 35-39.9 [E66.812] 01/27/2022 Hypervolemia [E87.70] 01/28/2022 Encounter for support and coordination of trans*01/28/2022 Nicotine use disorder, F17.2 [F17.200] 01/31/2022 History of asthma [Z87.09] 09/18/2020 History of cocaine use [F14.91] 03/26/2013 HLD (hyperlipidemia) [E78.5] 08/22/2013 Hypoglycemia [E16.2] 01/07/2023 Chronic right shoulder pain [M25.511, G89.29] 01/27/2018 Pain in joint, shoulder region [M25.519] 05/23/2013 Substance abuse (HCC) [F19.10] 09/18/2020 Vitamin D deficiency [E55.9] 01/07/2023 DKA, type 1, not at goal (HCC) [E10.10] 02/06/2024 02/10/2024 Acute hypoxemic respiratory failure (HCC) [J96.*02/07/2024 02/10/2024 Severe sepsis (HCC) [A41.9, R65.20] 02/07/2024 02/10/2024 High anion gap metabo (more content not included)... [facility] CNPN Telephone (EpoqMAS) LUISITO ZHONG ([id number]) 1980 M T Date Time Provider Department 02/19/25 ROBYN TAYLOR During your visit today, we recorded the following information about you: Stacia Valdivia MA 02/19/2025 9:04 AM Signed Items addressed in this encounter: Medium Encounter referral info given via infibond Able to close encounter. Stacia Valdivia MA February 19, 2025 9:03 AM 9:03 AM Allergies As of Date: 02/19/2025 Noted Allergy Reaction HYDROMORPHONE 06/18/2019 9 - Itching TRAMADOL 10/27/2021 16 - Unknown Comments: Burning skin Date Reviewed: 02/13/2025 Reviewed by: Colleen oHffman LPN - Fully Assessed Reason for Visit: referral info given via infibond [Other] Prescriptions as of 02/19/2025 - DEXCOM G7 SENSOR xenia - ferrous sulfate 325 mg (65 mg iron) tablet Take iron daily with vitamin C to increase absorption. - ascorbic acid, vitamin C, (VITAMIN C) 500 mg tablet Take vitamin C daily with iron to increase absorption. - ciclopirox (LOPROX) 0.77 % cream APPLY TOPICALLY TO THE AFFECTED AREA TWICE DAILY NEEDED FOR RASH - warfarin (COUMADIN) 5 mg tablet Take 1 tablet by mouth once daily. Take one half tablet on 01/01. Check INR on 01/02. Further dosing per Primary Care Provider. Take by mouth daily as directed. - levothyroxine (SYNTHROID) 150 mcg tablet Take 1 tablet by mouth daily before breakfast. - furosemide (LASIX) 20 mg tablet Take 1 tablet by mouth once daily for 5 days. - potassium chloride ER (KLOR-CON) 20 mEq tablet Take 1 tablet by mouth once daily. - cyclobenzaprine (FLEXERIL) 5 mg tablet Take 1 tablet by mouth once daily as needed. - acetaminophen (TYLENOL) 500 mg tablet Take 1-2 tablets by mouth every 6 hours as needed for pain. Do not exceed 4000mg in 24 hours - aspirin 81 mg chewable tablet Take 1 tablet by mouth once daily. - pantoprazole DR (PROTONIX) 20 mg tablet Take 1 tablet by mouth daily at 6 am for 14 days. - polyethylene glycol 3350 17 gram/dose powder Take 17 g by mouth once daily as needed for constipation. Dissolve dose in 4 - 8 ounces of liquid and take as directed. To prevent constipation during post op recovery. Stop when no longer needed. - insulin lispro (HUMALOG U-100 INSULIN) 100 unit/mL injection Continue insulin pump with home settings Home pump settings: Medtronic 780G, Humalog Basal Rate: 00:00 = 1.25 units/hr 4:00 = 1.30 units/hr 7:00 = 1.50 units/hr 11:00 = 1.60 units/hr 18:00 = 1.40 units/hr 23:00 = 1.20 units/hr Insulin:Carbohydrate ratio: 00:00 1 units per 8.5 g carbohydrate 17:00 1 units per 7 g carbohydrate Correction bolus: 1 unit insulin lowers glucose 35 mg/dL, correct to a target blood glucose of 110-130 mg/dL - cholecalciferol, Vitamin D3, (VITAMIN D3) 1,250 mcg (50,000 unit) cap capsule Take 50,000 Units by mouth one time a week. - traZODone (DESYREL) 100 mg tablet Take 100 mg by mouth daily at bedtime. - rosuvastatin (CRESTOR) 10 mg tablet Take 1 tablet by mouth daily at bedtime. - DULoxetine (CYMBALTA) 30 mg capsule Take 1 capsule by mouth once daily. - escitalopram oxalate (LEXAPRO) 20 mg tablet Take 1 tablet by mouth once daily. Problem List As Of Date 02/19/2025 Noted Resolved Impingement syndrome of right shoulder [M75.41] 08/13/2015 HTN (hypertension) [I10] 08/27/2015 Type 1 diabetes mellitus with diabetic polyneur* Acquired hypothyroidism [E03.9] Former smoker [Z87.891] Subaortic membrane [Q24.4] Mitral regurgitation [I34.0] Alcohol abuse [F10.10] History of drug abuse (HCC) [F19.11] 04/04/2019 Mixed anxiety and depressive disorder [F41.8] 04/04/2019 Dyspnea [R06.00] 12/31/2021 Dyslipidemia [E78.5] 12/31/2021 Obesity (BMI 30-39.9) [E66.9] 12/31/2021 Discharge planning issues [Z75.8] 01/22/2022 Pre-op testing [Z01.818] 01/22/2022 12/19/2024 Atelectasis [J98.11] 01/26/2022 Post-op pain [G89.18] 01/26/2022 SOB (shortness of breath) [R06.02] 01/26/2022 Tricuspid regurgitation [I07.1] 01/26/2022 Aortic regurgitation [I35.1] 01/26/2022 Obesity, Class II, BMI 35-39.9 [E66.812] 01/27/2022 Hypervolemia [E87.70] 01/28/2022 Encounter for support and coordination of trans*01/28/2022 Nicotine use disorder, F17.2 [F17.200] 01/31/2022 History of asthma [Z87.09] 09/18/2020 History of cocaine use [F14.91] 03/26/2013 HLD (hyperlipidemia) [E78.5] 08/22/2013 Hypoglycemia [E16.2] 01/07/2023 Chronic right shoulder pain [M25.511, G89.29] 01/27/2018 Pain in joint, shoulder region [M25.519] 05/23/2013 Substance abuse (HCC) [F19.10] 09/18/2020 Vitamin D deficiency [E55.9] 01/07/2023 DKA, type 1, not at goal (HCC) [E10.10] 02/06/2024 02/10/2024 Acute hypoxemic respiratory failure (HCC) [J96.*02/07/2024 02/10/2024 Severe sepsis (HCC) [A41.9, R65.20] 02/07/2024 02/10/2024 High anion gap metabolic acidosis [E87.29] 02/07/2024 02/10/2024 Lactic acidosis [E87.20] more content not included)... [facility] ([employer]) LUISITO ZHONG ([id number]) 1980 M T Date Time Provider Department 02/18/25 ROBYN TAYLOR During your visit today, we recorded the following information about you: Colleen Hoffman LPN 02/18/2025 1:46 PM Signed Referral faxed to [facility]#[phone] fax#[phone]. I left this information for patient in a message on his voice mail. Colleen Hoffman LPN February 18, 2025 1:43 PM Allergies As of Date: 02/18/2025 Noted Allergy Reaction HYDROMORPHONE 06/18/2019 9 - Itching TRAMADOL 10/27/2021 16 - Unknown Comments: Burning skin Date Reviewed: 02/13/2025 Reviewed by: Colleen Hoffman LPN - Fully Assessed Reason for Visit: Referral Information [[id number]] Cmt: Neurology Prescriptions as of 02/18/2025 - DEXCOM G7 SENSOR xenia - ferrous sulfate 325 mg (65 mg iron) tablet Take iron daily with vitamin C to increase absorption. - ascorbic acid, vitamin C, (VITAMIN C) 500 mg tablet Take vitamin C daily with iron to increase absorption. - ciclopirox (LOPROX) 0.77 % cream APPLY TOPICALLY TO THE AFFECTED AREA TWICE DAILY NEEDED FOR RASH - warfarin (COUMADIN) 5 mg tablet Take 1 tablet by mouth once daily. Take one half tablet on 01/01. Check INR on 01/02. Further dosing per Primary Care Provider. Take by mouth daily as directed. - levothyroxine (SYNTHROID) 150 mcg tablet Take 1 tablet by mouth daily before breakfast. - furosemide (LASIX) 20 mg tablet Take 1 tablet by mouth once daily for 5 days. - potassium chloride ER (KLOR-CON) 20 mEq tablet Take 1 tablet by mouth once daily. - cyclobenzaprine (FLEXERIL) 5 mg tablet Take 1 tablet by mouth once daily as needed. - acetaminophen (TYLENOL) 500 mg tablet Take 1-2 tablets by mouth every 6 hours as needed for pain. Do not exceed 4000mg in 24 hours - aspirin 81 mg chewable tablet Take 1 tablet by mouth once daily. - pantoprazole DR (PROTONIX) 20 mg tablet Take 1 tablet by mouth daily at 6 am for 14 days. - polyethylene glycol 3350 17 gram/dose powder Take 17 g by mouth once daily as needed for constipation. Dissolve dose in 4 - 8 ounces of liquid and take as directed. To prevent constipation during post op recovery. Stop when no longer needed. - insulin lispro (HUMALOG U-100 INSULIN) 100 unit/mL injection Continue insulin pump with home settings Home pump settings: Medtronic 780G, Humalog Basal Rate: 00:00 = 1.25 units/hr 4:00 = 1.30 units/hr 7:00 = 1.50 units/hr 11:00 = 1.60 units/hr 18:00 = 1.40 units/hr 23:00 = 1.20 units/hr Insulin:Carbohydrate ratio: 00:00 1 units per 8.5 g carbohydrate 17:00 1 units per 7 g carbohydrate Correction bolus: 1 unit insulin lowers glucose 35 mg/dL, correct to a target blood glucose of 110-130 mg/dL - cholecalciferol, Vitamin D3, (VITAMIN D3) 1,250 mcg (50,000 unit) cap capsule Take 50,000 Units by mouth one time a week. - traZODone (DESYREL) 100 mg tablet Take 100 mg by mouth daily at bedtime. - rosuvastatin (CRESTOR) 10 mg tablet Take 1 tablet by mouth daily at bedtime. - DULoxetine (CYMBALTA) 30 mg capsule Take 1 capsule by mouth once daily. - escitalopram oxalate (LEXAPRO) 20 mg tablet Take 1 tablet by mouth once daily. 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] Mitral regurgitation [I34.0] Alcohol abuse [F10.10] History of drug abuse (HCC) [F19.11] 04/04/2019 Mixed anxiety and depressive disorder [F41.8] 04/04/2019 Dyspnea [R06.00] 12/31/2021 Dyslipidemia [E78.5] 12/31/2021 Obesity (BMI 30-39.9) [E66.9] 12/31/2021 Discharge planning issues [Z75.8] 01/22/2022 Pre-op testing [Z01.818] 01/22/2022 12/19/2024 Atelectasis [J98.11] 01/26/2022 Post-op pain [G89.18] 01/26/2022 SOB (shortness of breath) [R06.02] 01/26/2022 Tricuspid regurgitation [I07.1] 01/26/2022 Aortic regurgitation [I35.1] 01/26/2022 Obesity, Class II, BMI 35-39.9 [E66.812] 01/27/2022 Hypervolemia [E87.70] 01/28/2022 Encounter for support and coordination of trans*01/28/2022 Nicotine use disorder, F17.2 [F17.200] 01/31/2022 History of asthma [Z87.09] 09/18/2020 History of cocaine use [F14.91] 03/26/2013 HLD (hyperlipidemia) [E78.5] 08/22/2013 Hypoglycemia [E16.2] 01/07/2023 Chronic right shoulder pain [M25.511, G89.29] 01/27/2018 Pain in joint, shoulder region [M25.519] 05/23/2013 Substance abuse (HCC) [F19.10] 09/18/2020 Vitamin D deficiency [E55.9] 01/07/2023 DKA, type 1, not at goal (HCC) [E10.10] 02/06/2024 02/10/2024 Acute hypoxemic respiratory failure (HCC) [J96.*02/07/2024 02/10/2024 Severe sepsis (HCC) [A41.9, R65.20] 02/07/2024 02/10/2024 High anion gap metabolic acidosis [E87.29] 02/07/2024 02/10/2024 Lactic acidos (more content not included)... [facility] CNPN Telephone ([employer]) LUISITO ZHONG ([id number]) 1980 M T Date Time Provider Department 02/18/25 ROBYN TAYLOR During your visit today, we recorded the following information about you: Eliza Hopkins 02/18/2025 3:34 PM Signed Patient called office wanted to know if the referral to [facility] has been done, as previous referral was sent to [facility] in which they do not accept his insurance. Stacia Banks MA 02/19/2025 9:05 AM Signed Items addressed in this encounter: Telephone Encounter Vascular referral faxed, pt notified via infibond Able to close encounter. Stacia ValdiviaMAGDIEL February 19, 2025 9:04 AM 9:04 AM Allergies As of Date: 02/18/2025 Noted Allergy Reaction HYDROMORPHONE 06/18/2019 9 - Itching TRAMADOL 10/27/2021 16 - Unknown Comments: Burning skin Date Reviewed: 02/13/2025 Reviewed by: Colleen Hoffman LPN - Fully Assessed Reason for Visit: Appointment [186] Referral Information [[id number]] Prescriptions as of 02/19/2025 - Napartner G7 SENSOR xenia - ferrous sulfate 325 mg (65 mg iron) tablet Take iron daily with vitamin C to increase absorption. - ascorbic acid, vitamin C, (VITAMIN C) 500 mg tablet Take vitamin C daily with iron to increase absorption. - ciclopirox (LOPROX) 0.77 % cream APPLY TOPICALLY TO THE AFFECTED AREA TWICE DAILY NEEDED FOR RASH - warfarin (COUMADIN) 5 mg tablet Take 1 tablet by mouth once daily. Take one half tablet on 01/01. Check INR on 01/02. Further dosing per Primary Care Provider. Take by mouth daily as directed. - levothyroxine (SYNTHROID) 150 mcg tablet Take 1 tablet by mouth daily before breakfast. - furosemide (LASIX) 20 mg tablet Take 1 tablet by mouth once daily for 5 days. - potassium chloride ER (KLOR-CON) 20 mEq tablet Take 1 tablet by mouth once daily. - cyclobenzaprine (FLEXERIL) 5 mg tablet Take 1 tablet by mouth once daily as needed. - acetaminophen (TYLENOL) 500 mg tablet Take 1-2 tablets by mouth every 6 hours as needed for pain. Do not exceed 4000mg in 24 hours - aspirin 81 mg chewable tablet Take 1 tablet by mouth once daily. - pantoprazole DR (PROTONIX) 20 mg tablet Take 1 tablet by mouth daily at 6 am for 14 days. - polyethylene glycol 3350 17 gram/dose powder Take 17 g by mouth once daily as needed for constipation. Dissolve dose in 4 - 8 ounces of liquid and take as directed. To prevent constipation during post op recovery. Stop when no longer needed. - insulin lispro (HUMALOG U-100 INSULIN) 100 unit/mL injection Continue insulin pump with home settings Home pump settings: Medtronic 780G, Humalog Basal Rate: 00:00 = 1.25 units/hr 4:00 = 1.30 units/hr 7:00 = 1.50 units/hr 11:00 = 1.60 units/hr 18:00 = 1.40 units/hr 23:00 = 1.20 units/hr Insulin:Carbohydrate ratio: 00:00 1 units per 8.5 g carbohydrate 17:00 1 units per 7 g carbohydrate Correction bolus: 1 unit insulin lowers glucose 35 mg/dL, correct to a target blood glucose of 110-130 mg/dL - cholecalciferol, Vitamin D3, (VITAMIN D3) 1,250 mcg (50,000 unit) cap capsule Take 50,000 Units by mouth one time a week. - traZODone (DESYREL) 100 mg tablet Take 100 mg by mouth daily at bedtime. - rosuvastatin (CRESTOR) 10 mg tablet Take 1 tablet by mouth daily at bedtime. - DULoxetine (CYMBALTA) 30 mg capsule Take 1 capsule by mouth once daily. - escitalopram oxalate (LEXAPRO) 20 mg tablet Take 1 tablet by mouth once daily. 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] Mitral regurgitation [I34.0] Alcohol abuse [F10.10] History of drug abuse (HCC) [F19.11] 04/04/2019 Mixed anxiety and depressive disorder [F41.8] 04/04/2019 Dyspnea [R06.00] 12/31/2021 Dyslipidemia [E78.5] 12/31/2021 Obesity (BMI 30-39.9) [E66.9] 12/31/2021 Discharge planning issues [Z75.8] 01/22/2022 Pre-op testing [Z01.818] 01/22/2022 12/19/2024 Atelectasis [J98.11] 01/26/2022 Post-op pain [G89.18] 01/26/2022 SOB (shortness of breath) [R06.02] 01/26/2022 Tricuspid regurgitation [I07.1] 01/26/2022 Aortic regurgitation [I35.1] 01/26/2022 Obesity, Class II, BMI 35-39.9 [E66.812] 01/27/2022 Hypervolemia [E87.70] 01/28/2022 Encounter for support and coordination of trans*01/28/2022 Nicotine use disorder, F17.2 [F17.200] 01/31/2022 History of asthma [Z87.09] 09/18/2020 History of cocaine use [F14.91] 03/26/2013 HLD (hyperlipidemia) [E78.5] 08/22/2013 Hypoglycemia [E16.2] 01/07/2023 Chronic right shoulder pain [M25.511, G89.29] 01/27/2018 Pain in joint, shoulder region [M25.519] 05/23/2013 Substance abuse (HCC) [F19.10] 09/18/2020 Vitamin D deficiency [E55.9] 01/07/2023 (more content not included)... [facility] ([facility]) LUISITO ZHONG ([id number]) 1980 M T Date Time Provider Department 02/14/25 ROBYN TAYLOR During your visit today, we recorded the following information about you: Stacia Valdivia MA 02/14/2025 10:59 AM Signed Items addressed in this encounter: Fax/Forms [facility] [phone] Faxed via RightFax, fax confirmation received Able to close encounter. Stacia Valdivia MA February 14, 2025 10:54 AM 10:54 AM Allergies As of Date: 02/14/2025 Noted Allergy Reaction HYDROMORPHONE 06/18/2019 9 - Itching TRAMADOL 10/27/2021 16 - Unknown Comments: Burning skin Date Reviewed: 02/13/2025 Reviewed by: Colleen Hoffman LPN - Fully Assessed Reason for Visit: [facility] referral [facility] [Other] Prescriptions as of 02/14/2025 - DEXCOM G7 SENSOR xenia - ferrous sulfate 325 mg (65 mg iron) tablet Take iron daily with vitamin C to increase absorption. - ascorbic acid, vitamin C, (VITAMIN C) 500 mg tablet Take vitamin C daily with iron to increase absorption. - ciclopirox (LOPROX) 0.77 % cream APPLY TOPICALLY TO THE AFFECTED AREA TWICE DAILY NEEDED FOR RASH - warfarin (COUMADIN) 5 mg tablet Take 1 tablet by mouth once daily. Take one half tablet on 01/01. Check INR on 01/02. Further dosing per Primary Care Provider. Take by mouth daily as directed. - levothyroxine (SYNTHROID) 150 mcg tablet Take 1 tablet by mouth daily before breakfast. - furosemide (LASIX) 20 mg tablet Take 1 tablet by mouth once daily for 5 days. - potassium chloride ER (KLOR-CON) 20 mEq tablet Take 1 tablet by mouth once daily. - cyclobenzaprine (FLEXERIL) 5 mg tablet Take 1 tablet by mouth once daily as needed. - acetaminophen (TYLENOL) 500 mg tablet Take 1-2 tablets by mouth every 6 hours as needed for pain. Do not exceed 4000mg in 24 hours - aspirin 81 mg chewable tablet Take 1 tablet by mouth once daily. - pantoprazole DR (PROTONIX) 20 mg tablet Take 1 tablet by mouth daily at 6 am for 14 days. - polyethylene glycol 3350 17 gram/dose powder Take 17 g by mouth once daily as needed for constipation. Dissolve dose in 4 - 8 ounces of liquid and take as directed. To prevent constipation during post op recovery. Stop when no longer needed. - insulin lispro (HUMALOG U-100 INSULIN) 100 unit/mL injection Continue insulin pump with home settings Home pump settings: Medtronic 780G, Humalog Basal Rate: 00:00 = 1.25 units/hr 4:00 = 1.30 units/hr 7:00 = 1.50 units/hr 11:00 = 1.60 units/hr 18:00 = 1.40 units/hr 23:00 = 1.20 units/hr Insulin:Carbohydrate ratio: 00:00 1 units per 8.5 g carbohydrate 17:00 1 units per 7 g carbohydrate Correction bolus: 1 unit insulin lowers glucose 35 mg/dL, correct to a target blood glucose of 110-130 mg/dL - cholecalciferol, Vitamin D3, (VITAMIN D3) 1,250 mcg (50,000 unit) cap capsule Take 50,000 Units by mouth one time a week. - traZODone (DESYREL) 100 mg tablet Take 100 mg by mouth daily at bedtime. - rosuvastatin (CRESTOR) 10 mg tablet Take 1 tablet by mouth daily at bedtime. - DULoxetine (CYMBALTA) 30 mg capsule Take 1 capsule by mouth once daily. - escitalopram oxalate (LEXAPRO) 20 mg tablet Take 1 tablet by mouth once daily. 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] Mitral regurgitation [I34.0] Alcohol abuse [F10.10] History of drug abuse (HCC) [F19.11] 04/04/2019 Mixed anxiety and depressive disorder [F41.8] 04/04/2019 Dyspnea [R06.00] 12/31/2021 Dyslipidemia [E78.5] 12/31/2021 Obesity (BMI 30-39.9) [E66.9] 12/31/2021 Discharge planning issues [Z75.8] 01/22/2022 Pre-op testing [Z01.818] 01/22/2022 12/19/2024 Atelectasis [J98.11] 01/26/2022 Post-op pain [G89.18] 01/26/2022 SOB (shortness of breath) [R06.02] 01/26/2022 Tricuspid regurgitation [I07.1] 01/26/2022 Aortic regurgitation [I35.1] 01/26/2022 Obesity, Class II, BMI 35-39.9 [E66.812] 01/27/2022 Hypervolemia [E87.70] 01/28/2022 Encounter for support and coordination of trans*01/28/2022 Nicotine use disorder, F17.2 [F17.200] 01/31/2022 History of asthma [Z87.09] 09/18/2020 History of cocaine use [F14.91] 03/26/2013 HLD (hyperlipidemia) [E78.5] 08/22/2013 Hypoglycemia [E16.2] 01/07/2023 Chronic right shoulder pain [M25.511, G89.29] 01/27/2018 Pain in joint, shoulder region [M25.519] 05/23/2013 Substance abuse (HCC) [F19.10] 09/18/2020 Vitamin D deficiency [E55.9] 01/07/2023 DKA, type 1, not at goal (HCC) [E10.10] 02/06/2024 02/10/2024 Acute hypoxemic respiratory failure (HCC) [J96.*02/07/2024 02/10/2024 Severe sepsis (HCC) [A41.9, R65.20] (more content not included)... [facility] CNPN Telephone ([employer]) LUISITO ZHONG ([id number]) 1980 M T Date Time Provider Department 02/14/25 ROBYN TAYLOR During your visit today, we recorded the following information about you: Stacia Valdivia MA 02/14/2025 11:48 AM Signed Items addressed in this encounter: Telephone Encounter referral info given via infibond Able to close encounter. Stacia Valdivia MA February 14, 2025 11:00 AM 11:00 AM Allergies As of Date: 02/14/2025 Noted Allergy Reaction HYDROMORPHONE 06/18/2019 9 - Itching TRAMADOL 10/27/2021 16 - Unknown Comments: Burning skin Date Reviewed: 02/13/2025 Reviewed by: Colleen Hoffman LPN - Fully Assessed Reason for Visit: referral info given via infibond [Other] Prescriptions as of 02/14/2025 - DEXCOM G7 SENSOR xenia - ferrous sulfate 325 mg (65 mg iron) tablet Take iron daily with vitamin C to increase absorption. - ascorbic acid, vitamin C, (VITAMIN C) 500 mg tablet Take vitamin C daily with iron to increase absorption. - ciclopirox (LOPROX) 0.77 % cream APPLY TOPICALLY TO THE AFFECTED AREA TWICE DAILY NEEDED FOR RASH - warfarin (COUMADIN) 5 mg tablet Take 1 tablet by mouth once daily. Take one half tablet on 01/01. Check INR on 01/02. Further dosing per Primary Care Provider. Take by mouth daily as directed. - levothyroxine (SYNTHROID) 150 mcg tablet Take 1 tablet by mouth daily before breakfast. - furosemide (LASIX) 20 mg tablet Take 1 tablet by mouth once daily for 5 days. - potassium chloride ER (KLOR-CON) 20 mEq tablet Take 1 tablet by mouth once daily. - cyclobenzaprine (FLEXERIL) 5 mg tablet Take 1 tablet by mouth once daily as needed. - acetaminophen (TYLENOL) 500 mg tablet Take 1-2 tablets by mouth every 6 hours as needed for pain. Do not exceed 4000mg in 24 hours - aspirin 81 mg chewable tablet Take 1 tablet by mouth once daily. - pantoprazole DR (PROTONIX) 20 mg tablet Take 1 tablet by mouth daily at 6 am for 14 days. - polyethylene glycol 3350 17 gram/dose powder Take 17 g by mouth once daily as needed for constipation. Dissolve dose in 4 - 8 ounces of liquid and take as directed. To prevent constipation during post op recovery. Stop when no longer needed. - insulin lispro (HUMALOG U-100 INSULIN) 100 unit/mL injection Continue insulin pump with home settings Home pump settings: Medtronic 780G, Humalog Basal Rate: 00:00 = 1.25 units/hr 4:00 = 1.30 units/hr 7:00 = 1.50 units/hr 11:00 = 1.60 units/hr 18:00 = 1.40 units/hr 23:00 = 1.20 units/hr Insulin:Carbohydrate ratio: 00:00 1 units per 8.5 g carbohydrate 17:00 1 units per 7 g carbohydrate Correction bolus: 1 unit insulin lowers glucose 35 mg/dL, correct to a target blood glucose of 110-130 mg/dL - cholecalciferol, Vitamin D3, (VITAMIN D3) 1,250 mcg (50,000 unit) cap capsule Take 50,000 Units by mouth one time a week. - traZODone (DESYREL) 100 mg tablet Take 100 mg by mouth daily at bedtime. - rosuvastatin (CRESTOR) 10 mg tablet Take 1 tablet by mouth daily at bedtime. - DULoxetine (CYMBALTA) 30 mg capsule Take 1 capsule by mouth once daily. - escitalopram oxalate (LEXAPRO) 20 mg tablet Take 1 tablet by mouth once daily. 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] Mitral regurgitation [I34.0] Alcohol abuse [F10.10] History of drug abuse (HCC) [F19.11] 04/04/2019 Mixed anxiety and depressive disorder [F41.8] 04/04/2019 Dyspnea [R06.00] 12/31/2021 Dyslipidemia [E78.5] 12/31/2021 Obesity (BMI 30-39.9) [E66.9] 12/31/2021 Discharge planning issues [Z75.8] 01/22/2022 Pre-op testing [Z01.818] 01/22/2022 12/19/2024 Atelectasis [J98.11] 01/26/2022 Post-op pain [G89.18] 01/26/2022 SOB (shortness of breath) [R06.02] 01/26/2022 Tricuspid regurgitation [I07.1] 01/26/2022 Aortic regurgitation [I35.1] 01/26/2022 Obesity, Class II, BMI 35-39.9 [E66.812] 01/27/2022 Hypervolemia [E87.70] 01/28/2022 Encounter for support and coordination of trans*01/28/2022 Nicotine use disorder, F17.2 [F17.200] 01/31/2022 History of asthma [Z87.09] 09/18/2020 History of cocaine use [F14.91] 03/26/2013 HLD (hyperlipidemia) [E78.5] 08/22/2013 Hypoglycemia [E16.2] 01/07/2023 Chronic right shoulder pain [M25.511, G89.29] 01/27/2018 Pain in joint, shoulder region [M25.519] 05/23/2013 Substance abuse (HCC) [F19.10] 09/18/2020 Vitamin D deficiency [E55.9] 01/07/2023 DKA, type 1, not at goal (HCC) [E10.10] 02/06/2024 02/10/2024 Acute hypoxemic respiratory failure (HCC) [J96.*02/07/2024 02/10/2024 Severe sepsis (HCC) [A41.9, R65.20] 02/07/2024 02/10/2024 High anion gap metabolic acidosis [E87.29] 02/07/2024 02/10/2024 Lactic acidosis [E87.20] 01/10 (more content not included)... [facility] CNOVon 02-13-2025 CN Office Visit (NIALLS ) LUISITO ZHONG ([id number]) 1980 Afshin T Date Time Provider Department 02/13/25 4:00 PM ROBYN TAYLOR During your visit today, we recorded the following information about you: Temperature Pulse Respiration Blood pressure 98.8 degrees 95/minute 16/minute 122/70 Weight Height 109.9 kg 1.93 m Colleen Hoffman LPN 02/13/2025 5:12 PM Karlie Turpin is here today to discuss referrals Patient filed a disability claim recently He spoke to an golf club repairer and he suggested patient see some specialists or at least get more testing to document his issues He is asking about vascular and Neurology He is also asking about cognitive testing as he is having some problems with his speech and recall He is seeing a spine surgeon next week for disc issues and compression in his neck No refills needed Colleen Hoffman LPN February 13, 2025 4:05 PM Robyn Taylor APRN.SENIOR TECHNICAL ARCHITECT 02/13/2025 4:45 PM Addendum - A neuropsychological testing consult has been sent to [facility] in [place] to assess your cognitive concerns and diabetic neuropathy. You should hear from them to schedule within 2 weeks. If you haven?t been contacted, contact [facility] directly at [phone]; their office is at [address] [place] [address]. - A vascular medicine referral has been placed with [facility] to evaluate your blood flow and circulation. They will contact you to schedule--ask about appointment timing when they call. - Before your EMG at [facility], check with Dr. Huerta to see if a nerve conduction study can be added to your order; request the add-on if it isn?t included. - Keep your virtual neuromuscular (neurology) appointment with Dr. Cardoza on March 12 for evaluation of diabetic neuropathy. - Keep your cardiology appointment with Dr. Morris on March 15. - Attend your Coumadin clinic appointment on February 26 for warfarin management. - Attend your primary care visit with Dr. Garrett on February 27 to manage your warfarin and other primary care needs. - If you develop worsening or new chest pain--especially pain that spreads, severe shortness of breath at rest, or pain that doesn?t improve--call 911 or go to the nearest emergency department immediately. - Return for annual wellness in July or sooner if needed. If establishing with Dr. Garrett for all primary care services, cancel visit and schedule well visit with new provider. Take all medications as prescribed. Continue to follow with specialist providers. Healthy diet and regular aerobic exercise recommended. Please call the office at [phone] Option 4 or send a direct message via [facility] with any questions related to your visit today. Time throughout the day is reserved for patients with scheduled appointments. Please kindly allow 2-3 business days for staff to respond to phone calls or MyChart messages. Robyn Taylor APRN.CNP 02/13/2025 5:12 PM Signed This note was created using [employer] technology with patient consent. Subjective Luisito Zhong is a 44-year-old male with a history of diabetes, presenting for evaluation of chest pain, cognitive concerns, and neuropathy. Chest Pain: - Intermittent, sharp pain localized to the left lateral side of the chest, near the axilla. - Pain does not radiate. - Occurs primarily in the evening after being up all day. - Describes a tight sensation, similar to a muscle. - Denies recent URI. - Denies feeling a knot or mass in the area. - Denies use of nitroglycerin; recent cardiac catheterization which did not reveal any blockages. - Denies recent trauma or injury. Cognitive Concerns: - Noticed forgetfulness, particularly with names. - Reports losing train of thought mid-sentence. - Patient is a type 1 diabetic; believes cognitive issues may be related to recurrent low blood sugar episodes. - Denies history of CVA or TBI. Neuropathy: - Right foot has been going numb frequently over the past week. - Reports coldness in feet and hands. - Scheduled for an EMG at the end of the month, ordered by portfolio manager Dr. Desai. - Has a virtual appointment with neuromuscular specialist Dr. Marysol Cardoza on 03/12. Diabetes: - Managed by portfolio manager Dr. Desai of [facility]. - Recent focus on thyroid levels during last visit. - Scheduled to see Dr. Desai again in a month. Aortic Valve Replacement: - Recent aortic valve replacement surgery. - Follow-up appointment with detective homicide squad Dr. Morris at [facility] on 03/15. - Reports ongoing fatigue and dyspnea at baseline. - Recent chest X-ray showed no acute abnormalities and resolved pleural effusion. - Following with [facility] for warfarin management. - Has an upcoming appointment with a new PCP, Dr. Renay Brand (more content not included)... Normal [facility] INR (POC)on 02-06-2025 INR Coag (PPP) [Relative time] 2.4 {INR} High 0.8 - 1.2 [facility] Internal Quality Check Acceptable [facility] Interpretation and review of laboratory results Abnormal [facility] Location:[facility], [address], [place], [address] [facility] POINT OF CARE [facility] XR CHEST 2V FRONTAL/LATon XR CHEST 2V FRONTAL/LAT Normal [facility] XR Chest PA and Lateralon IMPRESSION: No acute radiographic abnormality. Journeyman Pipefitter: BOYD Transcribe Date/Time: Feb 06 2025 5:18P Dictated by : RAMYA CHOW MD This examination was interpreted and the report reviewed and electronically signed by: RAMYA CHOW MD on Feb 06 2025 5:25PM [facility] DIVISION OF RADIOLOGY * * *Final Report* * * DATE OF EXAM: Feb 06 2025 4:43PM WOX 5291 - XR CHEST 2V FRONTAL/LAT / PROCEDURE REASON: Pleural effusion on right * * * * Physician Interpretation * * * * EXAMINATION: CHEST RADIOGRAPH (2 VIEW FRONTAL & LATERAL) CLINICAL HISTORY: Pleural effusion on right MQ: XC2_6 EXAM DATE/TIME: 02/06/2025 4:43 PM COMPARISON: Chest x-ray on 01/07/2025 RESULT: Lines, tubes, and devices: Status post aortic and tricuspid valve repair. Lungs and pleura: No consolidation. No lung mass. No pleural effusion. No pneumothorax. Cardiomediastinal silhouette: Normal cardiomediastinal silhouette. Bones and soft tissues: There are postoperative changes from median sternotomy. The spine shows mild degenerative changes. DIVISION OF RADIOLOGY Provider, [facility] - 02/06/2025 * * *Final Report* * * DATE OF EXAM: Feb 06 2025 4:43PM WOX 5291 - XR CHEST 2V FRONTAL/LAT / PROCEDURE REASON: Pleural effusion on right * * * * Physician Interpretation * * * * EXAMINATION: CHEST RADIOGRAPH (2 VIEW FRONTAL & LATERAL) CLINICAL HISTORY: Pleural effusion on right MQ: XC2_6 EXAM DATE/TIME: 02/06/2025 4:43 PM COMPARISON: Chest x-ray on 01/07/2025 RESULT: Lines, tubes, and devices: Status post aortic and tricuspid valve repair. Lungs and pleura: No consolidation. No lung mass. No pleural effusion. No pneumothorax. Cardiomediastinal silhouette: Normal cardiomediastinal silhouette. Bones and soft tissues: There are postoperative changes from median sternotomy. The spine shows mild degenerative changes. IMPRESSION IMPRESSION: No acute radiographic abnormality. Journeyman Pipefitter: PSCB Transcribe Date/Time: Feb 06 2025 5:18P Dictated by : RAMYA CHOW MD This examination was interpreted and the report reviewed and electronically signed by: RAMYA CHOW MD on Feb 06 2025 5:25PM EST [facility] Radiology Study observation (narrative) [facility] XR Chest PA and LateralOrder ed By: Ccf Provider on 02-06-2025 [facility] CNPNon 01-28-2025 [facility] [place] Telephone (FAMMAS) LUISITO ZHONG ([id number]) 1980 M T Date Time Provider Department 01/28/25 ROBYN TAYLOR During your visit today, we recorded the following information about you: Allergies As of Date: 01/28/2025 Noted Allergy Reaction HYDROMORPHONE 06/18/2019 9 - Itching TRAMADOL 10/27/2021 16 - Unknown Comments: Burning skin Date Reviewed: 01/24/2025 Reviewed by: Colleen Hoffman LPN - Fully Assessed Reason for Visit: Results [95] Prescriptions as of 01/29/2025 - ferrous sulfate 325 mg (65 mg iron) tablet Take iron daily with vitamin C to increase absorption. - ascorbic acid, vitamin C, (VITAMIN C) 500 mg tablet Take vitamin C daily with iron to increase absorption. - ciclopirox (LOPROX) 0.77 % cream APPLY TOPICALLY TO THE AFFECTED AREA TWICE DAILY NEEDED FOR RASH - warfarin (COUMADIN) 5 mg tablet Take 1 tablet by mouth once daily. Take one half tablet on 01/01. Check INR on 01/02. Further dosing per Primary Care Provider. Take by mouth daily as directed. - levothyroxine (SYNTHROID) 150 mcg tablet Take 1 tablet by mouth daily before breakfast. - furosemide (LASIX) 20 mg tablet Take 1 tablet by mouth once daily for 5 days. - potassium chloride ER (KLOR-CON) 20 mEq tablet Take 1 tablet by mouth once daily. - cyclobenzaprine (FLEXERIL) 5 mg tablet Take 1 tablet by mouth once daily as needed. - acetaminophen (TYLENOL) 500 mg tablet Take 1-2 tablets by mouth every 6 hours as needed for pain. Do not exceed 4000mg in 24 hours - aspirin 81 mg chewable tablet Take 1 tablet by mouth once daily. - pantoprazole DR (PROTONIX) 20 mg tablet Take 1 tablet by mouth daily at 6 am for 14 days. - polyethylene glycol 3350 17 gram/dose powder Take 17 g by mouth once daily as needed for constipation. Dissolve dose in 4 - 8 ounces of liquid and take as directed. To prevent constipation during post op recovery. Stop when no longer needed. - insulin lispro (HUMALOG U-100 INSULIN) 100 unit/mL injection Continue insulin pump with home settings Home pump settings: Medtronic 780G, Humalog Basal Rate: 00:00 = 1.25 units/hr 4:00 = 1.30 units/hr 7:00 = 1.50 units/hr 11:00 = 1.60 units/hr 18:00 = 1.40 units/hr 23:00 = 1.20 units/hr Insulin:Carbohydrate ratio: 00:00 1 units per 8.5 g carbohydrate 17:00 1 units per 7 g carbohydrate Correction bolus: 1 unit insulin lowers glucose 35 mg/dL, correct to a target blood glucose of 110-130 mg/dL - cholecalciferol, Vitamin D3, (VITAMIN D3) 1,250 mcg (50,000 unit) cap capsule Take 50,000 Units by mouth one time a week. - traZODone (DESYREL) 100 mg tablet Take 100 mg by mouth daily at bedtime. - rosuvastatin (CRESTOR) 10 mg tablet Take 1 tablet by mouth daily at bedtime. - DULoxetine (CYMBALTA) 30 mg capsule Take 1 capsule by mouth once daily. - escitalopram oxalate (LEXAPRO) 20 mg tablet Take 1 tablet by mouth once daily. Problem List As Of Date 01/28/2025 Noted Resolved Impingement syndrome of right shoulder [M75.41] 08/13/2015 HTN (hypertension) [I10] 08/27/2015 Type 1 diabetes mellitus with diabetic polyneur* Acquired hypothyroidism [E03.9] Former smoker [Z87.891] Subaortic membrane [Q24.4] Mitral regurgitation [I34.0] Alcohol abuse [F10.10] History of drug abuse (HCC) [F19.11] 04/04/2019 Mixed anxiety and depressive disorder [F41.8] 04/04/2019 Dyspnea [R06.00] 12/31/2021 Dyslipidemia [E78.5] 12/31/2021 Obesity (BMI 30-39.9) [E66.9] 12/31/2021 Discharge planning issues [Z75.8] 01/22/2022 Pre-op testing [Z01.818] 01/22/2022 12/19/2024 Atelectasis [J98.11] 01/26/2022 Post-op pain [G89.18] 01/26/2022 SOB (shortness of breath) [R06.02] 01/26/2022 Tricuspid regurgitation [I07.1] 01/26/2022 Aortic regurgitation [I35.1] 01/26/2022 Obesity, Class II, BMI 35-39.9 [E66.812] 01/27/2022 Hypervolemia [E87.70] 01/28/2022 Encounter for support and coordination of trans*01/28/2022 Nicotine use disorder, F17.2 [F17.200] 01/31/2022 History of asthma [Z87.09] 09/18/2020 History of cocaine use [F14.91] 03/26/2013 HLD (hyperlipidemia) [E78.5] 08/22/2013 Hypoglycemia [E16.2] 01/07/2023 Chronic right shoulder pain [M25.511, G89.29] 01/27/2018 Pain in joint, shoulder region [M25.519] 05/23/2013 Substance abuse (HCC) [F19.10] 09/18/2020 Vitamin D deficiency [E55.9] 01/07/2023 DKA, type 1, not at goal (HCC) [E10.10] 02/06/2024 02/10/2024 Acute hypoxemic respiratory failure (HCC) [J96.*02/07/2024 02/10/2024 Severe sepsis (HCC) [A41.9, R65.20] 02/07/2024 02/10/2024 High anion gap metabolic acidosis [E87.29] 02/07/2024 02/10/2024 Lactic acidosis [E87.20] 02/07/2024 02/10/2024 Hyperkalemia [E87.5] 02/07/2024 02/10/2024 Leukocytosis [D72.829] 02/07/2024 02/10/2024 Hypophosphataemia [E83.39] 02/07/2024 02/10/2024 Type 1 diabetes mellitus without complication (*02/09/2024 Homeless [Z59.00] 02/09/2024 Cocaine abuse (HCC) [F (more content not included)... [facility] CNOVon 01-24-2025 CNOV Office Visit (FAMMAS ) LUISITO ZHONG ([id number]) 1980 M [facility] Date Time Provider Department 01/24/25 1:40 PM ROBYN TAYLOR During your visit today, we recorded the following information about you: Temperature Pulse Respiration Blood pressure 99.4 degrees 110/minute 16/minute 120/74 Weight Height 107 kg 1.93 m Colleen Hoffman LPN 02/05/2025 1:40 AM Karlie Papi is here today for a follow up for his chronic health conditions and to review his chest xray He was unable to get Xray done yesterday in [place] because the Xray machine was down He is also here to review his recent chest Xray Patient is going to a Coumadin Clinic in [place] and does not need Robyn to manage his therapy he had an INR test done yesterday and it was 2.8 Patient says he has had a headache over the past few days Patient's temperature is elevated at 99.5 degrees F Recheck 99.8 degrees F No refills needed Colleen Hoffman LPN January 24, 2025 1:34 PM Robyn Taylor APRN.QAMAR 02/05/2025 1:40 AM Signed This note was created using [employer] technology with patient consent. Subjective Luisito Zhong is a 44-year-old male with a history of DM, hypothyroidism, and recent mechanical aortic valve replacement, presenting for follow-up with review of lab and x-ray results. Mechanical Aortic Valve Replacement: - Recent mechanical aortic valve replacement. - Last INR was 2.8 yesterday. - Referral to cardiology in process; awaiting contact for appointment scheduling. - Follow-up appointment at [facility] scheduled for 90-day graeme, including a CT scan of the heart and aortic root evaluation. Headache: - Headache x2 days. - Suspects headaches may be related to herniated disc in the neck, causing pain radiating to the back of the head. - Denies feeling sick or nauseous. - Denies respiratory or urinary symptoms, including dysuria, cough, or chills. - Denies known exposure to COVID-19. Herniated Disc: - Diagnosed with a herniated disc in the neck. - Undergoing physical therapy. - Follow-up appointment with visitor services specialist Dr. Kaur at [facility] scheduled for February 06. Anemia: - Recent lab results (01/16) show Hgb 11.9, Hct 36.9, RBC 4.18, platelets 476. - Iron level was 25; started on daily iron supplement. - Denies kidney problems; GFR 111. - LFTs normal; albumin slightly low at 3.6. - Blood glucose 116; A1c 6.4. - Cholesterol stable on statin therapy; LDL 102. - Vitamin D level 44.6. - TSH elevated at 9.930; free T4 0.9. - Consistently taking levothyroxine since hospital discharge. - Referral to endocrinology in process; awaiting contact for appointment scheduling. 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 Has been clean since 06/21/2018. Went to treatment at [facility] for 9 months Mitral regurgitation Murmur Rotator cuff syndrome 06/18/2015 Subaortic membrane (HCC) with stenosis Tetrahydrocannabinol (THC) use disorder, mild, in sustained remission, in controlled environment, abuse Type 1 diabetes mellitus with diabetic polyneuropathy (HCC) ACTIVE PROBLEM LIST Impingement Syndrome of Right Shoulder Type 1 Diabetes Mellitus With Diabetic Polyneuropathy (Hcc) Acquired Hypothyroidism Former Smoker Subaortic Membrane (Hcc) Mitral Regurgitation Alcohol Abuse History of Drug Abuse (Hcc) Mixed Anxiety and Depressive Disorder Dyspnea Dyslipidemia Obesity (Bmi 30-39.9) Discharge Planning Issues Atelectasis Post-Op Pain Sob (Shortness of Breath) Tricuspid Regurgitation Aortic Regurgitation Obesity, Class II, Bmi 35-39.9 Hypervolemia Encounter for Support and Coordination of Transition of Care Nicotine use disorder, F17.2 History of Asthma History of Cocaine Use Hld (Hyperlipidemia) Hypoglycemia Chronic Right Shoulder Pain Pain in Joint, Shoulder Region Substance Abuse (Hcc) Vitamin D Deficiency Type 1 Diabetes Mellitus Without Complication (Hcc) Homeless Cocaine Abuse (Hcc) Aortic Valve Disorder Class 1 Drug-Induced Obesity With Serious Comorbidity and Body Mass Index (Bmi) of 31.0 to 31.9 in Adult Pre-Op Testing Crack Cocaine Use 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 Postoperative Pulmonary Edema (Hcc) S/P Avr (Aortic Valve Replacement) Nonrheumatic Aortic Valve Stenosis Coagulopathy (Hcc) Stress Hyperglycemia Type 2 Diabetes Mellitus Without Complication, With Long-Term Current Use of Insulin (Hcc) Anticoagulation Management Encounter Type 1 Diabetes Mellitus With Hypergl (more content not included)... Normal [facility] INR (POC)on 01-23-2025 INR Coag (PPP) [Relative time] 2.8 {INR} High 0.8 - 1.2 [facility] Internal Quality Check Acceptable [facility] Interpretation and review of laboratory results Abnormal [facility] Location: [place], [address], [place], [address] [facility] POINT OF CARE [facility] Bryant 01-21-2025 QAMARN Telephone (FAMMAS) LUISITO ZHONG ([id number]) 1980 M T Date Time Provider Department 01/21/25 ROBYN TAYLOR During your visit today, we recorded the following information about you: Colleen Hoffman LPN 01/21/2025 5:12 PM Signed Per Robyn Taylor APRN.QAMAR regarding patient's recent test results: Please inform patient A1c is stable at 6.4%. Ensure he has secured an appointment with endocrinology in [place] (referred on 01/10). Cholesterol also stable. Continue statin therapy, heart healthy diet, and scheduled to establish with cardiology for long-term management (referred on 01/10). Iron is very low at 25 with stable anemia. Is he short of breath, having palpitations, or feeling more fatigued than usual? Would benefit from daily oral iron with vitamin C to improve iron stores. Rx sent to preferred pharmacy. Recheck non-fasting labs in 3 months (04/21/2025). INR below goal at 1.8. I see he is now established with the coumadin clinic in [place] and most recent INR is in range at 2.5. Please continue following with coumadin clinic for management. TSH is elevated at 9.930. Patient sees endo but is between providers. Assess for compliance with levothyroxine 150 mcg daily as prescribed and appropriate dosing alone, on empty stomach, with full glass of water at least 1 hour apart from other meds, food, beverages. Remainder of labs are stable. We will see him on the for his next office visit where we can review labs and CXR results in detail. Robyn Taylor APRN.QAMAR I attempted to call patient Luisito. No answer. I left a voice mail message for patient to return call to office. Colleen Hoffman LPN January 21, 2025 5:12 PM Colleen Hoffman LPN 01/22/2025 10:15 AM Signed I attempted to call patient Papi. No answer. I left a voice mail message for patient to return call to office. Colleen Hoffman LPN January 22, 2025 10:15 AM Colleen Hoffman LPN 01/22/2025 1:47 PM Addendum I spoke with patient Papi and advised him of all information and instructions per Robyn's note. Patient did voice understanding. He did say that he is not sure if his thyroid medication was being given to him at the hospital as he just had open heart surgery on 12/25/2024. Papi also said it's really hard to tell if he is feeling fatigued more than usual because he is still recovering from the heart surgery. Papi confirmed that he does have a follow up appointment scheduled in the office this week in 2 days on and said he will discuss his results further at that time. Papi thanked me for calling. Colleen Hoffman LPN January 22, 2025 11:38 AM Robyn Taylor APRN.CNP 01/22/2025 12:16 PM Signed Thank you! Robyn Taylor APRN.CNP Allergies As of Date: 01/21/2025 Noted Allergy Reaction HYDROMORPHONE 06/18/2019 9 - Itching TRAMADOL 10/27/2021 16 - Unknown Comments: Burning skin Date Reviewed: 01/10/2025 Reviewed by: Stephani Cox LPN - Fully Assessed Reason for Visit: Results [95] Prescriptions as of 01/22/2025 - ferrous sulfate 325 mg (65 mg iron) tablet Take iron daily with vitamin C to increase absorption. - ascorbic acid, vitamin C, (VITAMIN C) 500 mg tablet Take vitamin C daily with iron to increase absorption. - ciclopirox (LOPROX) 0.77 % cream APPLY TOPICALLY TO THE AFFECTED AREA TWICE DAILY NEEDED FOR RASH - warfarin (COUMADIN) 5 mg tablet Take 1 tablet by mouth once daily. Take one half tablet on 01/01. Check INR on 01/02. Further dosing per Primary Care Provider. Take by mouth daily as directed. - levothyroxine (SYNTHROID) 150 mcg tablet Take 1 tablet by mouth daily before breakfast. - furosemide (LASIX) 20 mg tablet Take 1 tablet by mouth once daily for 5 days. - potassium chloride ER (KLOR-CON) 20 mEq tablet Take 1 tablet by mouth once daily. - cyclobenzaprine (FLEXERIL) 5 mg tablet Take 1 tablet by mouth once daily as needed. - acetaminophen (TYLENOL) 500 mg tablet Take 1-2 tablets by mouth every 6 hours as needed for pain. Do not exceed 4000mg in 24 hours - aspirin 81 mg chewable tablet Take 1 tablet by mouth once daily. - pantoprazole DR (PROTONIX) 20 mg tablet Take 1 tablet by mouth daily at 6 am for 14 days. - polyethylene glycol 3350 17 gram/dose powder Take 17 g by mouth once daily as needed for constipation. Dissolve dose in 4 - 8 ounces of liquid and take as directed. To prevent constipation during post op recovery. Stop when no longer needed. - insulin lispro (HUMALOG U-100 INSULIN) 100 unit/mL injection Continue insulin pump with home settings Home pump settings: Medtronic 780G, Humalog Basal Rate: 00:00 = 1.25 units/hr 4:00 = 1.30 units/hr 7:00 = 1.50 units/hr 11:00 = 1.60 units/hr 18:00 = 1.40 units/hr 23:00 = 1.20 units/hr Insulin:Carbohydrate ratio: 00:00 1 units per 8.5 g carbohydrate 17:00 1 units per 7 g carbohydrate Correction bolus: 1 uni (more content not included)... Normal [facility] Inital Evaluation (1) - PTon 01-17-2025 Inital Evaluation (1) - PT [facility] Physical [facility] [address] [place] [address] [address] [place] [id number] / REHABILITATION SERVICES INITIAL EVALUATION MR#: [id number] Acct: [id number] Name: LUISITO ZHONG Rep #: [id number] : 1980 44 From: Kahlil Lamb DPT, OCS, CSCS Referring Dr.: Dr. Freddy Mujica MD Status: REG [facility] Insurance: [facility] SELF PAY INSURANCE Patient's Visit Information Visit Information Visit Information: LUISITO ZHONG is a 44 year old M referred to Physical Therapy by Dr. Freddy Mujica MD with a diagnosis of B hip pain, neck pain. Date of Evaluation: 01/17/25 Physical Therapist: Kahlil Lamb DPT, OCS, CSCS Visit Plan Frequency: 2x /Week Duration: 4-6 Weeks Plan: 2x/week for , 4-6(start 2 and possibly pool after as patient had heart surgery 4 weeks ago adn will check with doctor on restriction), EG to recheck in two weeks. IE HEP: c/s ret 10x 8x.day, ret/ext 10x4x/day, scap circles throughout day, appropriate posture on phone and reading and in general all with HO Treat with 1. NWB hip strength on mat to I over first two weeks with pics. 2. manual therapy for cervical ret ext adn traction, sTM to parspinals neck and progression of cervical ext monitorring progress with R arm symptoms and neck pain. consider pool or gym after first two weeks. Subjective Subjective: Chronic pain and seent to pain mgmt. B hip pain with h/o R hip labral tear and repair. Pain creeping back here. L hip hurts also. Neck hurts also, shooting pain down R UE. Looking down made it worse. Had MRI of neck yesterday and basali will return to spine surgeon. R hip pain is lateral and into buttock worse with walking , Similar on L side but more intermittent. Neck pain is center and off to sides. Up to 5/10 worse lying down at night. Arm symptoms worse lying down adn reading and phone looking down. Sleeps on sides. Wakes him up at times. Employed: no tocurrently, spends day recovering from heart surgery 12/25 and had mechanical valve placement:Not lifting more than 10 # until end January. Hobbies: sports watching. Basic ADLs are I. Cooking meals I.Steps are no problem at homee. Pain B hip pain: Pain Intensity (Out of 10): 0 Pain Intensity Range: 0 and 3 Comment: worse WB and sitting too long. Objective Objective: Walks into PT I and safely, protracted scap, kyphotic T/S looking down often. Trasnfrs chair and bed I. Limited scap ROM depression and retraction B. cervical aROM 15 ext adn 35 B rotation with end range pain in neck. Looking down makes tingly numbness worse, repeated ext increases ext rOM quickly. UE AROM stiff in elevation but WFL, strength 4- shoulder flexion adn abd and er, 4 IR adn bi and tri and wrists. Hip aROM limited in flexion B and IR B with pain end range B L >R, + FADDIR B, ESTRELLITA is OK. 50 er and 5 IR. knee adn ankle AROM WFL. Max tightness in pecs, HS and quads B. reflexes 2/3 bi and tri and patella and achilles Sensation UE WNL to gross light touch. LE gross light touch seems OK but motor control in ankles seems slow B inv/eev. - slump, - SLR. Weakness apparent in abd and ext hips 3/5, flexion 3+ B, knees 4+/5, ankles 4/5 Chest incision is healed, drainage incisions still scabbed over. Balance/Special Test Scores Oswestry Neck Score: 26 Goals Goal 1:: neck ext to 50 and rotations to 55 without pain to show improved motion/funciton Goal Time Frame: 4-6 Weeks Goal 2:: I appropriate mgmt of neck exercises for UE and hip strength for hips at homee or in gym. Goal Time Frame: 4-6 Weeks Goal 3:: Sleep without waking due to arm symptoms and neck pain Goal Time Frame: 4-6 Weeks Goal 4:: steps and marching without pain Goal Time Frame: 4-6 Weeks Goal 5:: nck oswestry 4 or better Goal Time Frame: 4-6 Weeks Rehabilitation Potential Physical Therapy Diagnosis: neck loss of ROM likely discopathy, hip with degenerative changes B. Rehabilitation Potential: Fair Anticipated Interventions Patient/Client Instruction: Educate patient on: Condition and Plan of Care For the Purpose of:: To decrease pain, To increase ROM, To improve nutrient delivery to tissue, To improve muscle performance and motor function, To increase tolerance to activity/condition/position and To improve gait and locomotor functions Therapeutic Exercise to Include: Strength training, Postural training, Flexibilty training, Gait and locomotor training, Passive ROM, Active ROM and Nahum Exercises For the Purpose of:: To decrease pain, To increase ROM, To improve nutrient delivery to tissue, To improve muscle performance and motor function, To increase tolerance to activity/condition/position , To improve ability of physical actions for home/community/work/leisure and To improve gait and locomotor functions Manual Therapy Techniques to Include: Mobilization, Passive ROM and Soft tissue mobilization (more content not included)... Normal [facility] Magnetic resonance imaging r eportOrdered By: Kaushik Houston on 01-17-2025 Study report [facility] Imaging Services [address] [place] [address] Spine Cervical (Routine) MR#: [id number] Acct: [id number] Name: LUISITO ZHONG Rep #: [id number] : 1980 M 44 From: Manas Houston MD PCP: ROSCOE UMANZOR Status: REG CLI Study:Spine Cervical (Routine) Date of Exam: 01/16/25 Exam# [id number] Ordering Dr: Olga Mujica MD PROCEDURE: SPINE CERVICAL (ROUTINE) 01/16/2025 REASON FOR EXAM: RADICULOPATHY TECHNIQUE: SPINE CERVICAL (ROUTINE) Multiplanar and multisequence images were obtained without IV contrast administration. COMPARISON: 01-11-2025 CR FINDINGS: Straightening of cervical spine curve denoting muscle spasm. Preserved vertebral bodies height. No vertebral fractures or dislocation. Normal craniometric measures of the craniovertebral junction Cervical spondylodegenerative changes evident by multilevel anterior marginal osteophytic lipping and subchondral degenerative marrow signal/Modio II of the examined vertebral end plates with variable degrees of reduced bright T2 signal of the intervertebral discs. C1-C2: Atlantodens interval is preserved. Odontoid process and atlantoaxial joint appear normal. Mild atlanto-axial degenerative changes. C2-C3: There is no significant disc pathology. Normal morphology of the ligamentum flava. No arthropathy of the uncovertebral joints. No significant spinal canal stenosis noted. C3-C4: a 2.4 mm diffuse disc bulge with right foraminal protrusion along with bilateral uncovertberal arthropathy indenting the theca encroaching upon the related neural exit foramina inducing marked right and mild left exiting nerve roots compression. C4-C5: a 3.9 mm diffuse disc bulge with left foraminal protrusion along with bilateral uncovertberal arthropathy indenting the theca encroaching upon the related neural exit foramina inducing moderate right and marked left exiting nerve roots compression. C5-C6: a 3 mm diffuse disc bulge along with bilateral uncovertberal arthropathy indenting the theca encroaching upon the related neural exit foramina inducing moderate exiting nerve roots compression. C6-C7: a 4.5 mm diffuse disc bulge along with bilateral uncovertberal arthropathy indenting the theca encroaching upon the related neural exit foramina inducing marked exiting nerve roots compression. C7-T1: a 2 mm diffuse disc bulge indenting the theca encroaching upon the related neural exit foramina inducing moderate exiting nerve roots compression. Normal appearance of the examined cervical cord and cranio-cervical junction. No marrow infiltrative lesions. No paraspinal soft tissue masses. MRI/Spine Cervical (Routine) IMPRESSION: Straightening of cervical curve denoting myospasm. 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 Reading Location: [place] [address] CC: Dr. Freddy Mujica MD; ROSCOE UMANZOR ~ Journeyman Pipefitter: Signed [facility] 25(OH)D3 [facility] 2024 25-hydroxyvitamin D3 [Mass/Vol] 44.6 ng/mL Normal 31.0-80.0 [facility] Comment on above: Order Comment: Speci men Type: BLOOD SPECIMENOrdering Facility: [facility] Address: [address] [place] [address] Result Comment: Clas sification of 25 [place] Vitamin D status:Deficiency/Insufficiency: < or = 30 ng/ml.Sufficiency/Optimal Levels: 31-80 ng/mLToxicity: > 100 ng/mL.Test performed by chemiluminescent immunoassay. Performed By: #### 1 989-3 ####[facility] [id number] [place] [address] [place] ALBUMIN/CREATININE RATIO, UR INEon 01-16-2025 Albumin DL <= 20 mg/L (U) [Mass/Vol] mg/dL Normal [facility] Comment on above: Order Comment: Speci men Type: URINE SPECIMENOrdering Facility: [facility] Address: [address] [place] [address] Performed By: #### U ACR ####[facility] [id number] [place] [address] [place] Albumin/Creatinine (U) [Mass ratio] <12 Normal <30 [facility] Comment on above: Order Comment: Speci men Type: URINE SPECIMENOrdering Facility: [facility] Address: [address] [place] [address] Result Comment: Adul t Male and Female Nephrotic Criteria:<30 mg/g is considered normal to mildly joqqgbtpg91-006 mg/g is considered moderately increased>300 mg/g is considered severely increasedKDIGO. (2013). KDIGO 2012 Clinical Practice Guideline for the Evaluation and Management of Chronic Kidney Disease. Official Journal of the International Society of Nephrology, 3(1), 1-150. Performed By: #### U ACR ####[facility] [id number] [place] [address] [place] Creatinine (U) [Mass/Vol] 101.3 mg/dL Normal 20.0-300.0 [facility] Comment on above: Order Comment: Speci men Type: URINE SPECIMENOrdering Facility: [facility] Address: [address] [place] [address] Performed By: #### U ACR ####[facility] [id number] [place] [address] [place] CBC W Auto Differential pane l (Bld)on 01-16-2025 Basophils (Bld) [#/Vol] 0.13 10*3/uL High <0.11 [facility] Comment on above: Order Comment: Speci men Type: BLOOD SPECIMENOrdering Facility: [facility] Address: [address] [place] [address] Performed By: #### 5 7021-8 ####[facility] [id number] [place] [address] [place] Basophils/100 WBC (Bld) 2.0 % Normal [facility] Comment on above: Order Comment: Speci men Type: BLOOD SPECIMENOrdering Facility: [facility] Address: [address] [place] [address] Performed By: #### 5 7021-8 ####[facility] [id number] [place] [address] [place] Differential cell count method Nom (Bld) Auto Normal [facility] Comment on above: Order Comment: Speci men Type: BLOOD SPECIMENOrdering Facility: [facility] Address: [address] [place] [address] Performed By: #### 5 7021-8 ####[facility] [id number] [place] [address] [place] Eosinophils (Bld) [#/Vol] 0.42 10*3/uL Normal <0.46 [facility] Comment on above: Order Comment: Speci men Type: BLOOD SPECIMENOrdering Facility: [facility] Address: [address] [place] [address] Performed By: #### 5 7021-8 ####[facility] [id number] [place] [address] [place] Eosinophils/100 WBC (Bld) 6.3 % Normal [facility] Comment on above: Order Comment: Speci men Type: BLOOD SPECIMENOrdering Facility: [facility] Address: [address] [place] [address] Performed By: #### 5 7021-8 ####[facility] [id number] [place] [address] [place] Erythrocyte distribution width (RBC) [Ratio] 12.7 % Normal 11.5-15.0 [facility] Comment on above: Order Comment: Speci men Type: BLOOD SPECIMENOrdering Facility: [facility] Address: [address] [place] [address] Performed By: #### 5 7021-8 ####[facility] [id number] [place] [address] [place] Hematocrit (Bld) [Volume fraction] 36.9 % Low 39.0-51.0 [facility] Comment on above: Order Comment: Speci men Type: BLOOD SPECIMENOrdering Facility: [facility] Address: [address] [place] [address] Performed By: #### 5 7021-8 ####[facility] [id number] [place] [address] [place] Hemoglobin (Bld) [Mass/Vol] 11.9 g/dL Low 13.0-17.0 [facility] Comment on above: Order Comment: Speci men Type: BLOOD SPECIMENOrdering Facility: [facility] Address: [address] [place] [address] Performed By: #### 5 7021-8 ####[facility] [id number] [place] [address] [place] Immature granulocytes (Bld) [#/Vol] 10*3/uL Normal <0.10 [facility] Comment on above: Order Comment: Speci men Type: BLOOD SPECIMENOrdering Facility: [facility] Address: [address] [place] [address] Performed By: #### 5 7021-8 ####[facility] [id number] [place] [address] [place] Immature granulocytes/100 WBC (Bld) 0.2 % Normal [facility] Comment on above: Order Comment: Speci men Type: BLOOD SPECIMENOrdering Facility: [facility] Address: [address] [place] [address] Performed By: #### 5 7021-8 ####[facility] [id number] [place] [address] [place] Lymphocytes (Bld) [#/Vol] 1.81 10*3/uL Normal 1.00-4.00 [facility] Comment on above: Order Comment: Speci men Type: BLOOD SPECIMENOrdering Facility: [facility] Address: [address] [place] [address] Performed By: #### 5 7021-8 ####[facility] [id number] [place] [address] [place] Lymphocytes/100 WBC (Bld) 27.2 % Normal [facility] Comment on above: Order Comment: Speci men Type: BLOOD SPECIMENOrdering Facility: [facility] Address: [address] [place] [address] Performed By: #### 5 7021-8 ####[facility] [id number] [place] [address] [place] MCH (RBC) [Entitic mass] 28.5 pg Normal 26.0-34.0 [facility] Comment on above: Order Comment: Speci men Type: BLOOD SPECIMENOrdering Facility: [facility] Address: [address] [place] [address] Performed By: #### 5 7021-8 ####[facility] [id number] [place] [address] [place] MCHC (RBC) [Mass/Vol] 32.2 g/dL Normal 30.5-36.0 [facility] Comment on above: Order Comment: Speci men Type: BLOOD SPECIMENOrdering Facility: [facility] Address: [address] [place] [address] Performed By: #### 5 7021-8 ####[facility] [id number] [place] [address] [place] MCV (RBC) [Entitic vol] 88.3 fL Normal 80.0-100.0 [facility] Comment on above: Order Comment: Speci men Type: BLOOD SPECIMENOrdering Facility: [facility] Address: [address] [place] [address] Performed By: #### 5 7021-8 ####[facility] [id number] [place] [address] [place] Monocytes (Bld) [#/Vol] 0.67 10*3/uL Normal <0.87 [facility] Comment on above: Order Comment: Speci men Type: BLOOD SPECIMENOrdering Facility: [facility] Address: [address] [place] [address] Performed By: #### 5 7021-8 ####[facility] [id number] [place] [id number] [place] Monocytes/100 WBC (Bld) 10.1 % Normal [facility] Comment on above: Order Comment: Speci men Type: BLOOD SPECIMENOrdering Facility: [facility] Address: [address] [place] [address] Performed By: #### 5 7021-8 ####[facility] [id number] [place] [address] [place] Neutrophils (Bld) [#/Vol] 3.62 10*3/uL Normal 1.45-7.50 [facility] Comment on above: Order Comment: Speci men Type: BLOOD SPECIMENOrdering Facility: [facility] Address: [address] [place] [address] Performed By: #### 5 7021-8 ####[facility] [id number] [place] [address] [place] Neutrophils/100 WBC (Bld) 54.2 % Normal [facility] Comment on above: Order Comment: Speci men Type: BLOOD SPECIMENOrdering Facility: [facility] Address: [address] [place] [address] Performed By: #### 5 7021-8 ####[facility] [id number] [place] [id number] [place] Nucleated RBC (Bld) [#/Vol] 10*3/uL Normal <0.01 [facility] Comment on above: Order Comment: Speci men Type: BLOOD SPECIMENOrdering Facility: [facility] Address: [address] [place] [address] Performed By: #### 5 7021-8 ####[facility] [id number] [place] [address] [place] Nucleated RBC/100 WBC (Bld) [Ratio] 0.0 /100 WBC Normal [facility] Comment on above: Order Comment: Speci men Type: BLOOD SPECIMENOrdering Facility: [facility] Address: [address] [place] [address] Performed By: #### 5 7021-8 ####[facility] [id number] [place] [address] [place] Platelet mean volume (Bld) [Entitic vol] 9.1 fL Normal 9.0-12.7 [facility] Comment on above: Order Comment: Speci men Type: BLOOD SPECIMENOrdering Facility: [facility] Address: [address] [place] [address] Performed By: #### 5 7021-8 ####[facility] [id number] [place] [address] [place] Platelets (Bld) [#/Vol] 476 10*3/uL High 150-400 [facility] Comment on above: Order Comment: Speci men Type: BLOOD SPECIMENOrdering Facility: [facility] Address: [address] [place] [address] Performed By: #### 5 7021-8 ####[facility] [id number] [place] [address] [place] RBC (Bld) [#/Vol] 4.18 10*6/uL Low 4.20-6.00 [facility] Comment on above: Order Comment: Speci men Type: BLOOD SPECIMENOrdering Facility: [facility] Address: [address] [place] [address] Performed By: #### 5 7021-8 ####[facility] [id number] [place] [address] [place] WBC (Bld) [#/Vol] 6.66 10*3/uL Normal 3.70-11.00 [facility] Comment on above: Order Comment: Speci men Type: BLOOD SPECIMENOrdering Facility: [facility] Address: [address] [place] [address] Performed By: #### 5 7021-8 ####[facility] [id number] [address] [address] [place] CNPNon 01-16-2025 CNPN Normal [facility] Comprehensive metabolic 2000 panelon 01-16-2025 Albumin [Mass/Vol] 3.6 g/dL Low 3.9-4.9 [facility] Comment on above: Order Comment: Speci men Type: BLOOD SPECIMENOrdering Facility: [facility] Address: [address] [place] [address] Performed By: #### 2 4323-8, 3024-7, 64089-2, 49352-6 ####[facility] [id number] [place] [id number] [place] ALP [Catalytic activity/Vol] 101 U/L Normal 38-113 [facility] Comment on above: Order Comment: Speci men Type: BLOOD SPECIMENOrdering Facility: [facility] Address: [address] [place] [address] Performed By: #### 2 4323-8, 3024-7, 48959-9, 38797-8 ####[facility] [id number] [place] [id number] [place] ALT [Catalytic activity/Vol] 24 U/L Normal 10-54 [facility] Comment on above: Order Comment: Speci men Type: BLOOD SPECIMENOrdering Facility: [facility] Address: [address] [place] [address] Performed By: #### 2 4323-8, 3024-7, 82867-7, 30381-0 ####[facility] [id number] [address] [address] [place] Anion gap [Moles/Vol] 8 mmol/L Normal 8-15 [facility] Comment on above: Order Comment: Speci men Type: BLOOD SPECIMENOrdering Facility: [facility] Address: [address] [place], [place] [address] Performed By: #### 2 4323-8, 3024-7, 39808-6, 74018-0 ####[facility] [id number] [place] [id number] [place] AST [Catalytic activity/Vol] 33 U/L Normal 14-40 [facility] Comment on above: Order Comment: Speci men Type: BLOOD SPECIMENOrdering Facility: [facility] Address: [address] [place] [address] Performed By: #### 2 4323-8, 3024-7, 41926-9, 21075-2 ####[facility] [id number] [place] [id number] [place] Bilirubin [Mass/Vol] 0.4 mg/dL Normal 0.2-1.3 [facility] Comment on above: Order Comment: Speci men Type: BLOOD SPECIMENOrdering Facility: [facility] Address: [address] [place] [address] Performed By: #### 2 4323-8, 3024-7, 79296-2, 11360-2 ####[facility] [id number] [place] [id number] [place] Calcium [Mass/Vol] 9.3 mg/dL Normal 8.5-10.2 [facility] Comment on above: Order Comment: Speci men Type: BLOOD SPECIMENOrdering Facility: [facility] Address: [address] [place], [place] [address] Performed By: #### 2 4323-8, 3024-7, 35844-6, 79752-5 ####[facility] [id number] [place] [id number] [place] Chloride [Moles/Vol] 107 mmol/L Normal 98-107 [facility] Comment on above: Order Comment: Speci men Type: BLOOD SPECIMENOrdering Facility: [facility] Address: [address] [place] [address] Performed By: #### 2 4323-8, 3024-7, 60266-0, 71454-2 ####[facility] [id number] [place] [id number] [place] CO2 [Moles/Vol] 25 mmol/L Normal 22-30 [facility] Comment on above: Order Comment: Speci men Type: BLOOD SPECIMENOrdering Facility: [facility] Address: [address] [place] [address] Performed By: #### 2 4323-8, 3024-7, 96641-0, 20669-5 ####[facility] [id number] [address] [place] Creatinine [Mass/Vol] 0.81 mg/dL Normal 0.73-1.22 [facility] Comment on above: Order Comment: Speci men Type: BLOOD SPECIMENOrdering Facility: [facility] Address: [address] [place] [address] Performed By: #### 2 4323-8, 3024-7, 27084-2, 84777-5 ####[facility] [id number] [place] [address] [place] Creatinine and Glomerular filtration rate.predicted panel (S/P/Bld) 111 mL/min/1.73m??? Normal >=60 [facility] Comment on above: Order Comment: Speci men Type: BLOOD SPECIMENOrdering Facility: [facility] Address: [address] [place] [address] Result Comment: Rosanna mated Glomerular Filtration Rate (eGFR) is calculated using the 2020 CKD-EPI creatinine equation. This equation utilizes serum creatinine, sex, and age as parameters. The creatinine assay has traceable calibration to isotope dilution-mass spectrometry. Refer to KDIGO guidelines for clinical interpretation. In patients with unstable renal function, e.g. those with acute kidney injury, the eGFR may not accurately reflect actual GFR. Performed By: #### 2 4323-8, 4-7, 21950-4, ####[facility] [id number] [facility] [place] [address] [place] Glucose [Mass/Vol] 116 mg/dL High 74-99 [facility] Comment on above: Order Comment: Moses burton Type: BLOOD SPECIMENOrdering Facility: [facility] Address: [address] [place] [address] Result Comment: The [place] Diabetes Association (ADA) provides guidance for cutoff values for fasting glucose and random glucose. The ADA defines fasting as no caloric intake for at least 8 hours. Fasting plasma glucose results between 100 to 125 mg/dL indicate increased risk for diabetes (prediabetes).Fasting plasma glucose results greater than or equal to 126 mg/dL meet the criteria for diagnosis of diabetes. In the absence of unequivocal hyperglycemia, results should be confirmed by repeat testing. In a patient with classic symptoms of hyperglycemia or hyperglycemic crisis, random plasma glucose results greater than or equal to 200 mg/dL meet the criteria for diagnosis of diabetes.Reference: Standards of Medical Care in Diabetes 2016, [place] Diabetes Association. Diabetes Care. 2016.39(Suppl 1). Performed By: #### 2 4323-8, 3023-7, 36537-0, ####[facility] [id number] [facility] [address] [place] [address] [place] Potassium [Moles/Vol] 4.9 mmol/L Normal 3.7-5.1 [facility] Comment on above: Order Comment: Moses burton Type: BLOOD SPECIMENOrdering Facility: [facility] Address: [address] [place] [address] Performed By: #### 2 4323-8, 4-7, 86442-5, ####[facility] [id number] [facility] [id number] [address] [place] Protein [Mass/Vol] 6.9 g/dL Normal 6.3-8.0 [facility] Comment on above: Order Comment: Speci men Type: BLOOD SPECIMENOrdering Facility: [facility] Address: [address] [place] [address] Performed By: #### 2 4323-8, 3024-7, 08333-3, 56926-7 ####[facility] [id number] [place] [address] [place] Sodium [Moles/Vol] 140 mmol/L Normal 136-144 [facility] Comment on above: Order Comment: Speci men Type: BLOOD SPECIMENOrdering Facility: [facility] Address: [address] [place] [address] Performed By: #### 2 4323-8, 3024-7, 77412-2, 33864-4 ####[facility] [id number] [place] [address] [place] Urea nitrogen [Mass/Vol] 13 mg/dL Normal 9-24 [facility] Comment on above: Order Comment: Speci men Type: BLOOD SPECIMENOrdering Facility: [facility] Address: [address] [place] [address] Performed By: #### 2 4323-8, 3024-7, 23962-5, 18146-3 ####[facility] [id number] [place] [id number] [place] Ferritin SerPl-mCncon 2024 Ferritin [Mass/Vol] 137.0 ng/mL Normal 30.3-565.7 [facility] Comment on above: Order Comment: Speci men Type: BLOOD SPECIMENOrdering Facility: [facility] Address: [address] [place] [address] Performed By: #### 2 276-4, 3016-3 ####[facility] [id number] [place] [id number] [place] HbA1c (Bld)on 01-16-2025 Average glucose Estimated from glycated hemoglobin (Bld) [Mass/Vol] 137 mg/dL Normal [facility] Comment on above: Order Comment: Moses burton Type: BLOOD SPECIMENOrdering Facility: [facility] Address: [address] [place] [address] Result Comment: eAG: (Estimated average glucose) is a calculated value from HgbA1c and is contact representative of the average blood glucose level in the last 2-3 month period. Performed By: #### 5 5454-3 ####[facility] [id number] [place] [address] [place] HbA1c (Bld) [Mass fraction] 6.4 % High 4.3-5.6 [facility] Comment on above: Order Comment: Moses burton Type: BLOOD SPECIMENOrdering Facility: [facility] Address: [address] [place] [address] Result Comment: Amer [place] Diabetes Association guidelines indicate that patients with HgbA1c in the range 5.7-6.4% are at increased risk for development of diabetes, and intervention by lifestyle modification may be beneficial. HgbA1c greater or equal to 6.5% is considered diagnostic of diabetes. Performed By: #### 5 5454-3 ####[facility] [id number] [place] [id number] [place] Iron and Iron binding capaci ty panelon 01-16-2025 Iron [Mass/Vol] 25 ug/dL Low 41-186 [facility] Comment on above: Order Comment: Moses burton Type: BLOOD SPECIMENOrdering Facility: [facility] Address: [address] [place] [address] Performed By: #### 2 4323-8, 3024-7, 80434-8, 71164-5 ####[facility] [id number] [place] [id number] [place] Iron binding capacity [Mass/Vol] 310 ug/dL Normal 232-386 [facility] Comment on above: Order Comment: Speci men Type: BLOOD SPECIMENOrdering Facility: [facility] Address: [address] [place] [address] Performed By: #### 2 4323-8, 3024-7, 59334-4, 45090-4 ####[facility] [id number] [address] [address] [place] Iron/TIBC [Molar ratio] 8.1 % Low 15.0-57.0 [facility] Comment on above: Order Comment: Speci men Type: BLOOD SPECIMENOrdering Facility: [facility] Address: [address] [place] [address] Performed By: #### 2 4323-8, 302-7, 49954-2, 42670-9 ####[facility] [id number] [place] [id number] [place] Lipid 1996 panelon 5 Cholesterol [Mass/Vol] 168 mg/dL Normal <200 [facility] Comment on above: Order Comment: Speci men Type: BLOOD SPECIMENOrdering Facility: [facility] Address: [address] [place] [address] Result Comment: <200 mg/dL, Desirable 200-239 mg/dL, Borderline high>239 mg/dL, High Performed By: #### 2 4323-8, 3024-7, 09316-7, 96901-3 ####[facility] [id number] [address] [address] [place] Cholesterol in HDL [Mass/Vol] 54 mg/dL Normal >39 [facility] Comment on above: Order Comment: Speci men Type: BLOOD SPECIMENOrdering Facility: [facility] Address: [address] [place] [address] Result Comment: 40-5 9 mg/dL, Acceptable>59 mg/dL, High: Negative risk factor for coronary heart disease<40 mg/dL, Low: Positive risk factor for coronary heart disease Performed By: #### 2 4323-8, 4-7, 83882-5, 15856-6 ####[facility] [id number] [address] [address] [place] Cholesterol in LDL [Mass/Vol] 102 mg/dL High <100 [facility] Comment on above: Order Comment: Speci men Type: BLOOD SPECIMENOrdering Facility: [facility] Address: [address] [place] [address] Result Comment: <100 mg/dL, Optimal 100-129 mg/dL, Near optimal/above optimal 130-159 mg/dL, Borderline high 160-189 mg/dL, High>189 mg/dL, Very highSecondary prevention optimal LDL Cholesterol levels are recommended to be <70 mg/dLLDL cholesterol is calculated using the Rizo-NIH equation. Performed By: #### 2 4323-8, 4-7, 38037-9, 05992-5 ####[facility] [id number] [place] [id number] [place] Cholesterol in LDL/Cholesterol in HDL [Mass ratio] 1.89 {ratio} Normal <2.54 [facility] Comment on above: Order Comment: Speci men Type: BLOOD SPECIMENOrdering Facility: [facility] Address: [address] [place] [address] Result Comment: Refe rence:1. National Cholesterol Education Program ATP III Guideline At-A-Glance Quick Desk Reference: National Heart, Lung, and Blood [place]. National Institutes of Health. 2001: NIH Publication No. 01-3305.2. An International Atherosclerosis Society position paper: global recommendations for the management of dyslipidemia: executive summary, Atherosclerosis. 2014: 232(2):410-413. Performed By: #### 2 4323-8, 4-7, 44073-7, 82152-7 ####[facility] [id number] [address] [address] [place] Cholesterol in VLDL [Mass/Vol] 10 mg/dL Normal <30 [facility] Comment on above: Order Comment: Speci men Type: BLOOD SPECIMENOrdering Facility: [facility] Address: [address] [place] [address] Performed By: #### 2 4323-8, 3023-7, 72078-2, 04156-8 ####[facility] [id number] [address] [address] [place] Cholesterol non HDL [Mass/Vol] 114 mg/dL Normal <130 [facility] Comment on above: Order Comment: Speci men Type: BLOOD SPECIMENOrdering Facility: [facility] Address: [address] [place] [id number] Result Comment: <130 mg/dL, Optimal 130-159 mg/dL, Near optimal/above optimal 160-189 mg/dL, Borderline high 190-219 mg/dL, High>219 mg/dL, Very highSecondary prevention optimal non HDL Cholesterol levels are recommended to be <100 mg/dL Performed By: #### 2 4323-8, 7, 01998-6, 81547-4 ####[facility] [id number] [address] [address] [place] Cholesterol.total/Ch olesterol in HDL [Mass ratio] 3.11 {ratio} Normal <5.10 [facility] Comment on above: Order Comment: Speci men Type: BLOOD SPECIMENOrdering Facility: [facility] Address: [address] [place] [id number] Performed By: #### 2 4323-8, 7, 13994-3, 06843-9 ####[facility] [id number] [address] [address] [place] FASTING TIME 12 hrs Normal [facility] Comment on above: Order Comment: Speci men Type: BLOOD SPECIMENOrdering Facility: [facility] Address: [address] [place], [place] [address] Performed By: #### 2 4323-8, 3023-7, 43709-1, 59994-1 ####[facility] [id number] [place] [address] [place] Triglyceride [Mass/Vol] 61 mg/dL Normal <150 [facility] Comment on above: Order Comment: Moses burton Type: BLOOD SPECIMENOrdering Facility: [facility] Address: [address] [place] [address] Result Comment: <150 mg/dL, Normal 150-199 mg/dL, Borderline high 200-499 mg/dL, High>499 mg/dL, Very high Performed By: #### 2 4323-8, 3024-7, 57911-5, 92414-5 ####[facility] [id number] [address] [place] PT panel Coag (PPP)on 2024 INR Coag (PPP) [Relative time] 1.8 {INR} High 0.9-1.3 [facility] Comment on above: Order Comment: Specmolly burton Type: BLOOD SPECIMENOrdering Facility: [facility] Address: [address] [place] [address] Result Comment: Humaira min K Antagonist (VKA) Therapeutic Range: INR 2 to 3 (Target INR of 2.5)Note: For patients treated with VKA drugs, such as warfarin, the [place] [employer] 2012 Guideline recommends a therapeutic INR range of 2 to 3 (target INR of 2.5). This recommendation includes high-risk patients with antiphospholipid syndrome with previous arterial or venous thromboembolism, current-generation mechanical or bioprosthetic aortic heart valve replacement.Note: Patients with mechanical aortic valve replacement and additional risk factors for thromboembolic events (atrial fibrillation, previous thromboembolism, LV dysfunction, hypercoagulable conditions) or an older generation mechanical AVR (i.e., ball in-Cage) or any mechanical MVR should have a INR therapeutic range of 2.5 to 3.5 (target INR of 3).Delores GH, et al. Chest 2012, 141:7S-47SCinda GRADY et al. [facility] 2017, 70: 252-289 Performed By: #### 3 4528-0 ####[facility] [id number] [address] [address] [place] PT Coag (PPP) [Time] 18.4 s High 9.7-13.0 [facility] Comment on above: Order Comment: Speci men Type: BLOOD SPECIMENOrdering Facility: [facility] Address: [address] [facility] [place] [address] Performed By: #### 3 4528-0 ####[facility] [id number] [place] [address] [place] Spine Cervical (Routine)on 0 01-16-2025 Spine Cervical (Routine) [facility] Imaging Services [address] [facility] [place] [address] Spine Cervical (Routine) MR#: [id number] Acct: [id number] Name: LUISITO ZHONG Rep #: [id number] : 1980 M 44 From: Kaushik abbott MD PCP: ROSCOE UMANZOR Status: REG CLI Study: Spine Cervical (Routine) Date of Exam: Exam# [id number] Ordering Dr: Freddy Mujica MD PROCEDURE: SPINE CERVICAL (ROUTINE) 01/16/2025 REASON FOR EXAM: RADICULOPATHY TECHNIQUE: SPINE CERVICAL (ROUTINE) Multiplanar and multisequence images were obtained without IV contrast administration. COMPARISON: 01-11-2025 CR FINDINGS: Straightening of cervical spine curve denoting muscle spasm. Preserved vertebral bodies height. No vertebral fractures or dislocation. Normal craniometric measures of the craniovertebral junction Cervical spondylodegenerative changes evident by multilevel anterior marginal osteophytic lipping and subchondral degenerative marrow signal/Modio II of the examined vertebral end plates with variable degrees of reduced bright T2 signal of the intervertebral discs. C1-C2: Atlantodens interval is preserved. Odontoid process and atlantoaxial joint appear normal. Mild atlanto-axial degenerative changes. C2-C3: There is no significant disc pathology. Normal morphology of the ligamentum flava. No arthropathy of the uncovertebral joints. No significant spinal canal stenosis noted. C3-C4: a 2.4 mm diffuse disc bulge with right foraminal protrusion along with bilateral uncovertberal arthropathy indenting the theca encroaching upon the related neural exit foramina inducing marked right and mild left exiting nerve roots compression. C4-C5: a 3.9 mm diffuse disc bulge with left foraminal protrusion along with bilateral uncovertberal arthropathy indenting the theca encroaching upon the related neural exit foramina inducing moderate right and marked left exiting nerve roots compression. C5-C6: a 3 mm diffuse disc bulge along with bilateral uncovertberal arthropathy indenting the theca encroaching upon the related neural exit foramina inducing moderate exiting nerve roots compression. C6-C7: a 4.5 mm diffuse disc bulge along with bilateral uncovertberal arthropathy indenting the theca encroaching upon the related neural exit foramina inducing marked exiting nerve roots compression. C7-T1: a 2 mm diffuse disc bulge indenting the theca encroaching upon the related neural exit foramina inducing moderate exiting nerve roots compression. Normal appearance of the examined cervical cord and cranio-cervical junction. No marrow infiltrative lesions. No paraspinal soft tissue masses. MRI/Spine Cervical (Routine) IMPRESSION: Straightening of cervical curve denoting myospasm. 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 Reading Location: [place] [address] CC: Dr. Freddy Mujica MD; ROSCOE UMANZOR Journeyman Pipefitter: Signed Normal [facility] T4 Free SerPl-mCncon 025 Free T4 [Mass/Vol] 0.9 ng/dL Normal 0.9-1.7 [facility] Comment on above: Order Comment: Speci men Type: BLOOD SPECIMENOrdering Facility: [facility] Address: [address] [place] [address] Performed By: #### 2 4323-8, 3024-7, 49633-2, 80449-7 ####[facility] [id number] [place] [address] [place] TSH SerPl-aCncon 01-16-2025 TSH Qn 9.930 m[IU]/L High 0.270-4.200 [facility] Comment on above: Order Comment: Speci men Type: BLOOD SPECIMENOrdering Facility: [facility] Address: [address] [place] [address] Performed By: #### 2 276-4, 3016-3 ####[facility] [id number] KAREN SINGH [address] [place] CNPNon 01-15-2025 CNPN Normal [facility] CNOVon 01-10-2025 CNOV Office Visit (FAMMAS ) LUISITO ZHONG ([id number]) 1980 M T Date Time Provider Department 01/10/25 3:40 PM ROBYN TAYLOR During your visit today, we recorded the following information about you: Temperature Pulse Respiration Blood pressure 97.3 degrees 70/minute 18/minute 124/86 Weight Height 109.3 kg 1.93 m Stephani Cox LPN 01/14/2025 1:24 AM Signed Patient is in office to establish care. Previous PCP: Dr. Erna Olguin Last visit with PCP: last week Specialists: Cardiology - Aortic Valve stenosis - S/P on 12/25/2024: Redo Sternotomy, Mechanical Bent[place] ([address] Composite Graft) Endocrinology - Type 1 diabetes, Acquired Hypothyroidism Patient is currently on Coumadin Therapy Range 2-3 Last INR = 1.3 on 01-07-2025 Today in Office: 1.4 Current Coumadin Dose: 2.5 mg Tuesday 5 mg Tuesday, Tuesday, Tuesday, , Patient denies missing doses of medication. Patient has history of drug and alcohol abuse. Patient would like a referral for Coumadin Clinic at [facility]. Stephani Cox LPN January 10, 2025 3:52 PM Robyn Taylor APRN.QAMAR 01/10/2025 4:41 PM Signed - Take Coumadin (warfarin) 5 mg by mouth once daily; refill for one month sent to [facility]. - Return in one week for a follow-up visit to review your INR, lab results, and chest x-ray. - Referral placed to the [place] [facility]; call them to confirm the order and attend if they can see you sooner, then let us know. - Complete these tests before or at your follow-up appointment at [place] lab/radiology ([facility]) or your [place] facility: - CBC (complete blood count) - CMP (comprehensive metabolic panel) - Iron studies - Potassium level - Vitamin D level - Urine protein test - Chest x-ray - Fast 12 hours before these labs (water or black coffee OK). - Finish your current potassium 20 mEq once daily through Tuesday; labs will follow completion of this dose. - Stop pantoprazole after your 14-day supply unless you develop reflux symptoms. If you develop symptoms, please contact the office. - Referral sent for endocrinology in [place] (diabetes pump and thyroid management); if you haven?t been contacted within one week, call our office. - Referral sent to [facility] for general cardiology; schedule an appointment as soon as possible. - Schedule a dilated diabetic eye exam and ask your eye doctor to fax the report to [phone]. - Incorporate iron-rich foods into your diet; refer to the handout provided. - Continue your other home medications: - Insulin pump (with Humalog) - Levothyroxine 150 mcg daily - Rosuvastatin - Lexapro and duloxetine - Low-dose aspirin - Tylenol as needed - Plan a routine well visit in spring once labs and imaging remain stable. Labs are to be completed at the urgent care in the front of this building or any [facility] lab facility. Urgent care lab is open 7 days per week from 7 am to 8 pm on weekdays and 9 am to 5 pm on weekends with the exception of some holidays. An appointment is not necessary but can be scheduled via [facility] if desired. Take all medications as prescribed. Continue to follow with specialist providers. Healthy diet and regular aerobic exercise recommended. Please call the office at [phone] Option 4 or send a direct message via [facility] with any questions related to your visit today. Time throughout the day is reserved for patients with scheduled appointments. Please kindly allow 2-3 business days for staff to respond to phone calls or [facility] messages. Robyn Taylor APRN.QAMAR 01/14/2025 1:24 AM Signed This note was created using [employer] technology with patient consent. Subjective Luisito Zhong is a 44-year-old male with a history of aortic valve replacement, type 1 diabetes, and neuropathy, presenting for an initial visit to establish care, transitional care management with hospital follow-up after placement of mechanical aortic valve, and management of anticoagulation therapy. Anticoagulation Management: - Recent mechanical aortic valve placement on 12/25/24 at [facility] per Dr. 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 - Discharged on 12/31/24 on Coumadin 5 mg daily. - Current INR goal: 2.0-3.0. - Recent INR readings: 2.0 at discharge, 2.4 two days post-discharge, 1.3 on Tuesday, 1.4 today. - Current Coumadin regimen: 2.5 mg on Tuesday, Tuesday, and Tuesday; 5 mg on Tuesday, Tuesday, Tuesday, and . - Previous regimen: 2.5 mg on Tuesday, Tuesday, Tuesday, Tuesday; 5 mg on Tuesday, Tuesday, . - Taking Coumadin at 16:00-16:30 daily. - Reports minimal intake of vitamin K-rich foods. - Managed per PCP Dr. Umanzor of [facility] Care (more content not included)... Normal [facility] CNPNon 01-10-2025 CNPN Normal [facility] INR (POC)on 01-10-2025 INR Coag (PPP) [Relative time] 1.4 {INR} High 0.8 - 1.2 [facility] Internal Quality Check Acceptable [facility] Interpretation and review of laboratory results Abnormal [facility] Location:[facility], [address], [place], [address] [place] [address] POINT OF CARE [facility] CNPNon 01-08-2025 CNPN Normal [facility] CBC panel Auto (Bld)on 01-07 Erythrocyte distribution width (RBC) [Ratio] 12.9 % Normal 11.5-15.0 [facility] Comment on above: Order Comment: Speci men Type: BLOOD SPECIMENOrdering Facility: [facility] Address: [address] [place] [address] Performed By: #### 5 8410-2 ####[facility] [id number] [place] [address] [place] Hematocrit (Bld) [Volume fraction] 32.4 % Low 39.0-51.0 [facility] Comment on above: Order Comment: Speci men Type: BLOOD SPECIMENOrdering Facility: [facility] Address: [address] [place] [address] Performed By: #### 5 8410-2 ####[facility] [id number] [address] [place] Hemoglobin (Bld) [Mass/Vol] 11.0 g/dL Low 13.0-17.0 [facility] Comment on above: Order Comment: Speci men Type: BLOOD SPECIMENOrdering Facility: [facility] Address: [address] [place] [address] Performed By: #### 5 8410-2 ####[facility] [id number] [place] [address] [place] MCH (RBC) [Entitic mass] 30.0 pg Normal 26.0-34.0 [facility] Comment on above: Order Comment: Speci men Type: BLOOD SPECIMENOrdering Facility: [facility] Address: [address] [place] [address] Performed By: #### 5 8410-2 ####[facility] [id number] [place] [address] [place] MCHC (RBC) [Mass/Vol] 34.0 g/dL Normal 30.5-36.0 [facility] Comment on above: Order Comment: Speci men Type: BLOOD SPECIMENOrdering Facility: [facility] Address: [address] [place] [address] Performed By: #### 5 8410-2 ####[facility] [id number] [place] [id number] [place] MCV (RBC) [Entitic vol] 88.3 fL Normal 80.0-100.0 [facility] Comment on above: Order Comment: Speci men Type: BLOOD SPECIMENOrdering Facility: [facility] Address: [address] [place] [address] Performed By: #### 5 8410-2 ####[facility] [id number] [address], [place] [address] [place] Nucleated RBC (Bld) [#/Vol] 10*3/uL Normal <0.01 [facility] Comment on above: Order Comment: Speci men Type: BLOOD SPECIMENOrdering Facility: [facility] Address: [address] [place] [address] Performed By: #### 5 8410-2 ####[facility] [id number] [address], [place] [address] [place] Platelet mean volume (Bld) [Entitic vol] 9.1 fL Normal 9.0-12.7 [facility] Comment on above: Order Comment: Speci men Type: BLOOD SPECIMENOrdering Facility: [facility] Address: [address] [place] [address] Performed By: #### 5 8410-2 ####[facility] [id number] [place] [address] [place] Platelets (Bld) [#/Vol] 490 10*3/uL High 150-400 [facility] Comment on above: Order Comment: Speci men Type: BLOOD SPECIMENOrdering Facility: [facility] Address: [address] [place] [address] Performed By: #### 5 8410-2 ####[facility] [id number] [place] [id number] [place] RBC (Bld) [#/Vol] 3.67 10*6/uL Low 4.20-6.00 [facility] Comment on above: Order Comment: Speci men Type: BLOOD SPECIMENOrdering Facility: [facility] Address: [address] [place] [address] Performed By: #### 5 8410-2 ####[facility] [id number] [place] [address] [place] WBC (Bld) [#/Vol] 9.28 10*3/uL Normal 3.70-11.00 [facility] Comment on above: Order Comment: Speci men Type: BLOOD SPECIMENOrdering Facility: [facility] Address: [address] [place] [address] Performed By: #### 5 8410-2 ####[facility] [id number] [place] [address] [place] CNOVon 01-07-2025 CNOV Normal [facility] Comprehensive metabolic 2000 panelon 01-07-2025 Albumin [Mass/Vol] 3.3 g/dL Low 3.9-4.9 [facility] Comment on above: Order Comment: Speci men Type: BLOOD SPECIMENOrdering Facility: [facility] Address: [address] [place] [address] Performed By: #### 2 4323-8 ####[facility] [id number] [place] [address] [place] ALP [Catalytic activity/Vol] 81 U/L Normal 38-113 [facility] Comment on above: Order Comment: Speci men Type: BLOOD SPECIMENOrdering Facility: [facility] Address: [address] [place] [address] Performed By: #### 2 4323-8 ####[facility] [id number] [facility] [id number] [address] [place] ALT [Catalytic activity/Vol] 31 U/L Normal 10-54 [facility] Comment on above: Order Comment: Speci men Type: BLOOD SPECIMENOrdering Facility: [facility] Address: [address] [place] [address] Performed By: #### 2 4323-8 ####[facility] [id number] [facility]IT[facility] [address] [place] [address] [place] Anion gap [Moles/Vol] 9 mmol/L Normal 8-15 [facility] Comment on above: Order Comment: Speci men Type: BLOOD SPECIMENOrdering Facility: [facility] Address: [address] [place] [address] Performed By: #### 2 4323-8 ####[facility] [id number] [facility] [address], [facility] [place] AST [Catalytic activity/Vol] 38 U/L Normal 14-40 [facility] Comment on above: Order Comment: Speci men Type: BLOOD SPECIMENOrdering Facility: [facility] Address: [address] [place] [address] Performed By: #### 2 4323-8 ####[facility] [id number] [facility] [address] [place] [address] [place] Bilirubin [Mass/Vol] 0.5 mg/dL Normal 0.2-1.3 [facility] Comment on above: Order Comment: Speci men Type: BLOOD SPECIMENOrdering Facility: [facility] Address: [address] [place], [place] [address] Performed By: #### 2 4323-8 ####[facility] [id number] [facility] [address] [place] [address] [place] Calcium [Mass/Vol] 9.0 mg/dL Normal 8.5-10.2 [facility] Comment on above: Order Comment: Speci men Type: BLOOD SPECIMENOrdering Facility: [facility] Address: [address] [place] [id number] Performed By: #### 2 4323-8 ####[facility] [id number] [address] [address] [place] Chloride [Moles/Vol] 104 mmol/L Normal 98-107 [facility] Comment on above: Order Comment: Speci men Type: BLOOD SPECIMENOrdering Facility: [facility] Address: [address] [place] [address] Performed By: #### 2 4323-8 ####[facility] [id number] [place] [address] [place] CO2 [Moles/Vol] 25 mmol/L Normal 22-30 [facility] Comment on above: Order Comment: Speci men Type: BLOOD SPECIMENOrdering Facility: [facility] Address: [address] [place] [address] Performed By: #### 2 4323-8 ####[facility] [id number] [place] [address] [place] Creatinine [Mass/Vol] 0.93 mg/dL Normal 0.73-1.22 [facility] Comment on above: Order Comment: Speci men Type: BLOOD SPECIMENOrdering Facility: [facility] Address: [address] [place] [address] Performed By: #### 2 4323-8 ####[facility] [id number] [place] [id number] [place] Creatinine and Glomerular filtration rate.predicted panel (S/P/Bld) 103 mL/min/1.73m??? Normal >=60 [facility] Comment on above: Order Comment: Speci men Type: BLOOD SPECIMENOrdering Facility: [facility] Address: [address] [place] [address] Result Comment: Rosanna mated Glomerular Filtration Rate (eGFR) is calculated using the 2020 CKD-EPI creatinine equation. This equation utilizes serum creatinine, sex, and age as parameters. The creatinine assay has traceable calibration to isotope dilution-mass spectrometry. Refer to KDIGO guidelines for clinical interpretation. In patients with unstable renal function, e.g. those with acute kidney injury, the eGFR may not accurately reflect actual GFR. Performed By: #### 2 4323-8 ####[facility] [id number] [address] [address] [place] Glucose [Mass/Vol] 197 mg/dL High 74-99 [facility] Comment on above: Order Comment: Moses burton Type: BLOOD SPECIMENOrdering Facility: [facility] Address: [address] [place] [address] Result Comment: The [place] Diabetes Association (ADA) provides guidance for cutoff values for fasting glucose and random glucose. The ADA defines fasting as no caloric intake for at least 8 hours. Fasting plasma glucose results between 100 to 125 mg/dL indicate increased risk for diabetes (prediabetes).Fasting plasma glucose results greater than or equal to 126 mg/dL meet the criteria for diagnosis of diabetes. In the absence of unequivocal hyperglycemia, results should be confirmed by repeat testing. In a patient with classic symptoms of hyperglycemia or hyperglycemic crisis, random plasma glucose results greater than or equal to 200 mg/dL meet the criteria for diagnosis of diabetes.Reference: Standards of Medical Care in Diabetes 2016, [place] [employer] Association. Diabetes Care. 2016.39(Suppl 1). Performed By: #### 2 4323-8 ####[facility] [id number] [address] [address] [place] Potassium [Moles/Vol] 4.8 mmol/L Normal 3.7-5.1 [facility] Comment on above: Order Comment: Moses burton Type: BLOOD SPECIMENOrdering Facility: [facility] Address: [address] [place] [address] Performed By: #### 2 4323-8 ####[facility] [id number] [address] [address] [place] Protein [Mass/Vol] 6.5 g/dL Normal 6.3-8.0 [facility] Comment on above: Order Comment: Speci men Type: BLOOD SPECIMENOrdering Facility: [facility] Address: [address] [place] [address] Performed By: #### 2 4323-8 ####[facility] [id number] [place] [address] [place] Sodium [Moles/Vol] 138 mmol/L Normal 136-144 [facility] Comment on above: Order Comment: Speci men Type: BLOOD SPECIMENOrdering Facility: [facility] Address: [address] [place] [address] Performed By: #### 2 4323-8 ####[facility] [id number] [address] [place] Urea nitrogen [Mass/Vol] 14 mg/dL Normal 9-24 [facility] Comment on above: Order Comment: Speci men Type: BLOOD SPECIMENOrdering Facility: [facility] Address: [address] [place] [address] Performed By: #### 2 4323-8 ####[facility] [id number] [place] [address] [place] ECG COMPLETEon 01-07-2025 ECG COMPLETE Normal [facility] PT panel Coag (PPP)on 2024 INR Coag (PPP) [Relative time] 1.3 {INR} Normal 0.9-1.3 [facility] Comment on above: Order Comment: Speci men Type: BLOOD SPECIMENOrdering Facility: [facility] Address: [address] [place] [address] Result Comment: Humaira min K Antagonist (VKA) Therapeutic Range: INR 2 to 3 (Target INR of 2.5)Note: For patients treated with VKA drugs, such as warfarin, the [employer] 2012 Guideline recommends a therapeutic INR range of 2 to 3 (target INR of 2.5). This recommendation includes high-risk patients with antiphospholipid syndrome with previous arterial or venous thromboembolism, current-generation mechanical or bioprosthetic aortic heart valve replacement.Note: Patients with mechanical aortic valve replacement and additional risk factors for thromboembolic events (atrial fibrillation, previous thromboembolism, LV dysfunction, hypercoagulable conditions) or an older generation mechanical AVR (i.e., ball in-Cage) or any mechanical MVR should have a INR therapeutic range of 2.5 to 3.5 (target INR of 3).Delores GH, et al. Chest 2012, 141:7S-47SNishimura RA, et al. [facility] 2017, 70: 252-289 Performed By: #### 3 4528-0 ####[facility] [id number] [place] [address] [place] PT Coag (PPP) [Time] 13.4 s High 9.7-13.0 [facility] Comment on above: Order Comment: Speci men Type: BLOOD SPECIMENOrdering Facility: [facility] Address: [address] [place] [address] Performed By: #### 3 4528-0 ####[facility] [id number] [place] [address] [place] XR CHEST 2V FRONTAL/LATon XR CHEST 2V FRONTAL/LAT Normal [facility] XR Chest PA and Lateralon IMPRESSION: See result. Journeyman Pipefitter: BOYD Transcribe Date/Time: Jan 07 2025 6:06P Dictated by : KALANI SUTHERLAND MD This examination was interpreted and the report reviewed and electronically signed by: KALANI SUTHERLAND MD on Jan 07 2025 6:07PM [facility] DIVISION OF RADIOLOGY * * *Final Report* * * DATE OF EXAM: Jan 07 2025 10:18AM [id number] [id number] - XR CHEST 2V FRONTAL/LAT / PROCEDURE REASON: Surgery follow-up * * * * Physician Interpretation * * * * EXAMINATION: CHEST RADIOGRAPH (2 VIEW FRONTAL & LATERAL) CLINICAL HISTORY: Surgery follow-up MQ: XC2_6 EXAM DATE/TIME: 01/07/2025 10:18 AM COMPARISON: 12/30/2024 RESULT: Lines, tubes, and devices: None. Lungs and pleura: Improved perihilar reticular opacities in both lungs suggestive of improved interstitial edema. Stable small to medium right pleural effusion with right basilar atelectasis. No left pleural effusion. No pneumothorax. Cardiomediastinal silhouette: The cardiomediastinal silhouette is mildly enlarged. Stable postsurgical changes of aortic valve replacement and tricuspid annuloplasty. Bones and soft tissues: Status post median sternotomy with normally aligned sternal wires. Retained epicardial wires. DIVISION OF RADIOLOGY Provider, [facility] - 01/07/2025 * * *Final Report* * * DATE OF EXAM: Jan 07 2025 10:18AM JIX [id number] - XR CHEST 2V FRONTAL/LAT / PROCEDURE REASON: Surgery follow-up * * * * Physician Interpretation * * * * EXAMINATION: CHEST RADIOGRAPH (2 VIEW FRONTAL & LATERAL) CLINICAL HISTORY: Surgery follow-up MQ: XC2_6 EXAM DATE/TIME: 01/07/2025 10:18 AM COMPARISON: 12/30/2024 RESULT: Lines, tubes, and devices: None. Lungs and pleura: Improved perihilar reticular opacities in both lungs suggestive of improved interstitial edema. Stable small to medium right pleural effusion with right basilar atelectasis. No left pleural effusion. No pneumothorax. Cardiomediastinal silhouette: The cardiomediastinal silhouette is mildly enlarged. Stable postsurgical changes of aortic valve replacement and tricuspid annuloplasty. Bones and soft tissues: Status post median sternotomy with normally aligned sternal wires. Retained epicardial wires. IMPRESSION IMPRESSION: See result. Journeyman Pipefitter: PSCB Transcribe Date/Time: Jan 07 2025 6:06P Dictated by : KALANI SUTHERLAND MD This examination was interpreted and the report reviewed and electronically signed by: KALANI SUTHERLAND MD on Jan 07 2025 6:07PM EST [facility] Radiology Study observation (narrative) [facility] XR Chest PA and LateralOrder ed By: [facility] Provider on 01-07-2025 [facility] ALLIED HEALTHon 12-31-2024 ALLIED HEALTH Normal [facility] CASE MANAGEMon 12-31-2024 CASE MANAGEM Normal [facility] CBC panel Auto (Bld)on 12-31 Erythrocyte distribution width (RBC) [Ratio] 13.1 % Normal 11.5-15.0 [facility] Comment on above: Order Comment: Speci men Type: BLOOD SPECIMENOrdering Facility: [facility] Address: [address] [place] [address] Performed By: #### 5 8410-2 ####[facility] [id number] [place] [address] [place] Hematocrit (Bld) [Volume fraction] 34.2 % Low 39.0-51.0 [facility] Comment on above: Order Comment: Speci men Type: BLOOD SPECIMENOrdering Facility: [facility] Address: [address] [place] [address] Performed By: #### 5 8410-2 ####[facility] [id number] [address] [place] Hemoglobin (Bld) [Mass/Vol] 11.5 g/dL Low 13.0-17.0 [facility] Comment on above: Order Comment: Speci men Type: BLOOD SPECIMENOrdering Facility: [facility] Address: [address] [place] [address] Performed By: #### 5 8410-2 ####[facility] [id number] [place] [address] [place] MCH (RBC) [Entitic mass] 29.9 pg Normal 26.0-34.0 [facility] Comment on above: Order Comment: Speci men Type: BLOOD SPECIMENOrdering Facility: [facility] Address: [address] [place] [address] Performed By: #### 5 8410-2 ####[facility] [id number] [place] [id number] [place] MCHC (RBC) [Mass/Vol] 33.6 g/dL Normal 30.5-36.0 [facility] Comment on above: Order Comment: Speci men Type: BLOOD SPECIMENOrdering Facility: [facility] Address: [address] [place] [address] Performed By: #### 5 8410-2 ####[facility] [id number] [place] [address] [place] MCV (RBC) [Entitic vol] 88.8 fL Normal 80.0-100.0 [facility] Comment on above: Order Comment: Speci men Type: BLOOD SPECIMENOrdering Facility: [facility] Address: [address] [place] [address] Performed By: #### 5 8410-2 ####[facility] [id number] [place] [address] [place] Nucleated RBC (Bld) [#/Vol] 10*3/uL Normal <0.01 [facility] Comment on above: Order Comment: Speci men Type: BLOOD SPECIMENOrdering Facility: [facility] Address: [address] [place] [address] Performed By: #### 5 8410-2 ####[facility] [id number] [place] [address] [place] Platelet mean volume (Bld) [Entitic vol] 10.2 fL Normal 9.0-12.7 [facility] Comment on above: Order Comment: Speci men Type: BLOOD SPECIMENOrdering Facility: [facility] Address: [address] [place] [address] Performed By: #### 5 8410-2 ####[facility] [id number] [place] [address] [place] Platelets (Bld) [#/Vol] 255 10*3/uL Normal 150-400 [facility] Comment on above: Order Comment: Speci men Type: BLOOD SPECIMENOrdering Facility: [facility] Address: [address] [place] [address] Performed By: #### 5 8410-2 ####[facility] [id number] [address] [address] [place] RBC (Bld) [#/Vol] 3.85 10*6/uL Low 4.20-6.00 [facility] Comment on above: Order Comment: Speci men Type: BLOOD SPECIMENOrdering Facility: [facility] Address: [address] [place] [address] Performed By: #### 5 8410-2 ####[facility] [id number] [place] [address] [place] WBC (Bld) [#/Vol] 8.57 10*3/uL Normal 3.70-11.00 [facility] Comment on above: Order Comment: Speci men Type: BLOOD SPECIMENOrdering Facility: [facility] Address: [address] [place] [address] Performed By: #### 5 8410-2 ####[facility] [id number] [place] [id number] [place] Comprehensive metabolic 2000 panelon 12-31-2024 Albumin [Mass/Vol] 3.2 g/dL Low 3.9-4.9 [facility] Comment on above: Order Comment: Speci men Type: BLOOD SPECIMENOrdering Facility: [facility] Address: [address] [place] [address] Performed By: #### 2 4323-8 ####[facility] [id number] [place] [id number] [place] ALP [Catalytic activity/Vol] 72 U/L Normal 38-113 [facility] Comment on above: Order Comment: Speci men Type: BLOOD SPECIMENOrdering Facility: [facility] Address: [address] [place] [address] Performed By: #### 2 4323-8 ####[facility] [id number] [place] [id number] [place] ALT [Catalytic activity/Vol] 29 U/L Normal 10-54 [facility] Comment on above: Order Comment: Speci men Type: BLOOD SPECIMENOrdering Facility: [facility] Address: [address] [place] [address] Performed By: #### 2 4323-8 ####[facility] [id number] [place] [id number] [place] Anion gap [Moles/Vol] 11 mmol/L Normal 8-15 [facility] Comment on above: Order Comment: Speci men Type: BLOOD SPECIMENOrdering Facility: [facility] Address: [address] [place] [address] Performed By: #### 2 4323-8 ####[facility] [id number] [place] [address] [place] AST [Catalytic activity/Vol] 32 U/L Normal 14-40 [facility] Comment on above: Order Comment: Speci men Type: BLOOD SPECIMENOrdering Facility: [facility] Address: [address] [place] [address] Performed By: #### 2 4323-8 ####[facility] [id number] [place] [id number] [place] Bilirubin [Mass/Vol] 0.6 mg/dL Normal 0.2-1.3 [facility] Comment on above: Order Comment: Speci men Type: BLOOD SPECIMENOrdering Facility: [facility] Address: [address] [place] [id number] Performed By: #### 2 4323-8 ####[facility] [id number] [place] [id number] [place] Calcium [Mass/Vol] 8.3 mg/dL Low 8.5-10.2 [facility] Comment on above: Order Comment: Speci men Type: BLOOD SPECIMENOrdering Facility: [facility] Address: [address] [place], [place] [address] Performed By: #### 2 4323-8 ####[facility] [id number] [place] [id number] [place] Chloride [Moles/Vol] 103 mmol/L Normal 98-107 [facility] Comment on above: Order Comment: Speci men Type: BLOOD SPECIMENOrdering Facility: [facility] Address: [address] [place] [address] Performed By: #### 2 4323-8 ####[facility] [id number] [place] [id number] [place] CO2 [Moles/Vol] 26 mmol/L Normal 22-30 [facility] Comment on above: Order Comment: Speci men Type: BLOOD SPECIMENOrdering Facility: [facility] Address: [address] [place] [address] Performed By: #### 2 4323-8 ####[facility] [id number] [place] [address] [place] Creatinine [Mass/Vol] 0.80 mg/dL Normal 0.73-1.22 [facility] Comment on above: Order Comment: Speci men Type: BLOOD SPECIMENOrdering Facility: [facility] Address: [address] [place] [address] Performed By: #### 2 4323-8 ####[facility] [id number] [address] OF [facility] Creatinine and Glomerular filtration rate.predicted panel (S/P/Bld) 111 mL/min/1.73m??? Normal >=60 [facility] Comment on above: Order Comment: Speci men Type: BLOOD SPECIMENOrdering Facility: [facility] Address: [address] [place] [address] Result Comment: Rosanna mated Glomerular Filtration Rate (eGFR) is calculated using the 2020 CKD-EPI creatinine equation. This equation utilizes serum creatinine, sex, and age as parameters. The creatinine assay has traceable calibration to isotope dilution-mass spectrometry. Refer to KDIGO guidelines for clinical interpretation. In patients with unstable renal function, e.g. those with acute kidney injury, the eGFR may not accurately reflect actual GFR. Performed By: #### 2 4323-8 ####[facility] [id number] [facility] [id number] [address] [place] Glucose [Mass/Vol] 121 mg/dL High 74-99 [facility] Comment on above: Order Comment: Speci men Type: BLOOD SPECIMENOrdering Facility: [facility] Address: [address] [place] [address] Result Comment: The [place] [employer] (ADA) provides guidance for cutoff values for fasting glucose and random glucose. The ADA defines fasting as no caloric intake for at least 8 hours. Fasting plasma glucose results between 100 to 125 mg/dL indicate increased risk for diabetes (prediabetes).Fasting plasma glucose results greater than or equal to 126 mg/dL meet the criteria for diagnosis of diabetes. In the absence of unequivocal hyperglycemia, results should be confirmed by repeat testing. In a patient with classic symptoms of hyperglycemia or hyperglycemic crisis, random plasma glucose results greater than or equal to 200 mg/dL meet the criteria for diagnosis of diabetes.Reference: Standards of Medical Care in Diabetes 2016, [place] [employer]. Diabetes Care. 2016.39(Suppl 1). Performed By: #### 2 4323-8 ####[facility] [id number] [facility] [address] [address] [place] Potassium [Moles/Vol] 3.5 mmol/L Low 3.7-5.1 [facility] Comment on above: Order Comment: Speci men Type: BLOOD SPECIMENOrdering Facility: [facility] Address: [address] [place] [id number] Performed By: #### 2 4323-8 ####[facility] [id number] [facility] [id number] [address] [place] Protein [Mass/Vol] 6.1 g/dL Low 6.3-8.0 [facility] Comment on above: Order Comment: Speci men Type: BLOOD SPECIMENOrdering Facility: [facility] Address: [address] [place] [address] Performed By: #### 2 4323-8 ####[facility] [id number] [place] [id number] [place] Sodium [Moles/Vol] 140 mmol/L Normal 136-144 [facility] Comment on above: Order Comment: Speci men Type: BLOOD SPECIMENOrdering Facility: [facility] Address: [address] [place] [address] Performed By: #### 2 4323-8 ####[facility] [id number] [place] [address] [place] Urea nitrogen [Mass/Vol] 15 mg/dL Normal 9-24 [facility] Comment on above: Order Comment: Speci men Type: BLOOD SPECIMENOrdering Facility: [facility] Address: [address] [place] [address] Performed By: #### 2 4323-8 ####[facility] [id number] [place] [address] [place] POTASSIUMon 12-31-2024 Potassium [Moles/Vol] 3.8 mmol/L Normal 3.7-5.1 [facility] Comment on above: Order Comment: Speci men Type: BLOOD SPECIMENOrdering Facility: [facility] Address: [address] [place] [address] Performed By: #### K 1 ####[facility] [id number] [place] [id number] [place] PT panel Coag (PPP)on 2024 INR Coag (PPP) [Relative time] 2.0 {INR} High 0.9-1.3 [facility] Comment on above: Order Comment: Speci men Type: BLOOD SPECIMENOrdering Facility: [facility] Address: [address] [place] [address] Result Comment: Humaira min K Antagonist (VKA) Therapeutic Range: INR 2 to 3 (Target INR of 2.5)Note: For patients treated with VKA drugs, such as warfarin, the [place] [employer] 2012 Guideline recommends a therapeutic INR range of 2 to 3 (target INR of 2.5). This recommendation includes high-risk patients with antiphospholipid syndrome with previous arterial or venous thromboembolism, current-generation mechanical or bioprosthetic aortic heart valve replacement.Note: Patients with mechanical aortic valve replacement and additional risk factors for thromboembolic events (atrial fibrillation, previous thromboembolism, LV dysfunction, hypercoagulable conditions) or an older generation mechanical AVR (i.e., ball in-Cage) or any mechanical MVR should have a INR therapeutic range of 2.5 to 3.5 (target INR of 3).Delores GH, et al. Chest 2012, 141:7S-47SNishimura RA, et al. [facility] 2017, 70: 252-289 Performed By: #### 3 4528-0, PTTAC ####[facility] [id number] [place] [address] [place] PT Coag (PPP) [Time] 20.9 s High 9.7-13.0 [facility] Comment on above: Order Comment: Speci men Type: BLOOD SPECIMENOrdering Facility: [facility] Address: [address] [place] [address] Performed By: #### 3 4528-0, PTTAC ####[facility] [id number] [place] [address] [place] PTT, ANTICOAGULANT THERAPYon 12-31-2024 aPTT Coag (PPP) [Time] 50.4 s High 23.0-32.4 [facility] Comment on above: Order Comment: Speci men Type: BLOOD SPECIMENOrdering Facility: [facility] Address: [address] [place] [address] Performed By: #### 3 4528-0, PTTAC ####[facility] [id number] [place] [address] [place] THERAPY NTon 12-31-2024 THERAPY NT Normal [facility] CBC panel Auto (Bld)on 12-30 Erythrocyte distribution width (RBC) [Ratio] 12.8 % Normal 11.5-15.0 [facility] Comment on above: Order Comment: Speci men Type: BLOOD SPECIMENOrdering Facility: [facility] Address: [address] [place] [address] Performed By: #### 5 8410-2 ####[facility] [id number] [address] STATES OF [facility] Hematocrit (Bld) [Volume fraction] 33.8 % Low 39.0-51.0 [facility] Comment on above: Order Comment: Speci men Type: BLOOD SPECIMENOrdering Facility: [facility] Address: [address] [place] [address] Performed By: #### 5 8410-2 ####[facility] [id number] [address] [place] Hemoglobin (Bld) [Mass/Vol] 11.5 g/dL Low 13.0-17.0 [facility] Comment on above: Order Comment: Speci men Type: BLOOD SPECIMENOrdering Facility: [facility] Address: [address] [place] [address] Performed By: #### 5 8410-2 ####[facility] [id number] [place] [address] [place] MCH (RBC) [Entitic mass] 30.1 pg Normal 26.0-34.0 [facility] Comment on above: Order Comment: Speci men Type: BLOOD SPECIMENOrdering Facility: [facility] Address: [address] [place] [address] Performed By: #### 5 8410-2 ####[facility] [id number] [place] [address] [place] MCHC (RBC) [Mass/Vol] 34.0 g/dL Normal 30.5-36.0 [facility] Comment on above: Order Comment: Speci men Type: BLOOD SPECIMENOrdering Facility: [facility] Address: [address] [place] [address] Performed By: #### 5 8410-2 ####[facility] [id number] [place] [id number] [place] MCV (RBC) [Entitic vol] 88.5 fL Normal 80.0-100.0 [facility] Comment on above: Order Comment: Speci men Type: BLOOD SPECIMENOrdering Facility: [facility] Address: [address] [place] [address] Performed By: #### 5 8410-2 ####[facility] [id number] [place] [address] [place] Nucleated RBC (Bld) [#/Vol] 10*3/uL Normal <0.01 [facility] Comment on above: Order Comment: Speci men Type: BLOOD SPECIMENOrdering Facility: [facility] Address: [address] [place] [address] Performed By: #### 5 8410-2 ####[facility] [id number] [place] [id number] [place] Platelet mean volume (Bld) [Entitic vol] 10.0 fL Normal 9.0-12.7 [facility] Comment on above: Order Comment: Speci men Type: BLOOD SPECIMENOrdering Facility: [facility] Address: [address] [place] [address] Performed By: #### 5 8410-2 ####[facility] [id number] [place] [address] [place] Platelets (Bld) [#/Vol] 235 10*3/uL Normal 150-400 [facility] Comment on above: Order Comment: Speci men Type: BLOOD SPECIMENOrdering Facility: [facility] Address: [address] [place], [place] [address] Performed By: #### 5 8410-2 ####[facility] [id number] [place] [address] [place] RBC (Bld) [#/Vol] 3.82 10*6/uL Low 4.20-6.00 [facility] Comment on above: Order Comment: Speci men Type: BLOOD SPECIMENOrdering Facility: [facility] Address: [address] [place] [address] Performed By: #### 5 8410-2 ####[facility] [id number] [place] [address] [place] WBC (Bld) [#/Vol] 7.40 10*3/uL Normal 3.70-11.00 [facility] Comment on above: Order Comment: Speci men Type: BLOOD SPECIMENOrdering Facility: [facility] Address: [address] [place] [address] Performed By: #### 5 8410-2 ####[facility] [id number] [place] [id number] [place] CONSULT PROGon 12-30-2024 CONSULT PROG Normal [facility] CTA CHEST (GATED) W IVCONon 12-30-2024 CTA CHEST (GATED) W IVCON Normal [facility] Comprehensive metabolic 2000 panelon 12-30-2024 Albumin [Mass/Vol] 3.3 g/dL Low 3.9-4.9 [facility] Comment on above: Order Comment: Speci men Type: BLOOD SPECIMENOrdering Facility: [facility] Address: [address] [place] [address] Performed By: #### 2 4323-8 ####[facility] [id number] [place] [id number] [place] ALP [Catalytic activity/Vol] 78 U/L Normal 38-113 [facility] Comment on above: Order Comment: Speci men Type: BLOOD SPECIMENOrdering Facility: [facility] Address: [address] [place] [id number] Performed By: #### 2 4323-8 ####[facility] [id number] [address] [place] [address] [place] ALT [Catalytic activity/Vol] 35 U/L Normal 10-54 [facility] Comment on above: Order Comment: Speci men Type: BLOOD SPECIMENOrdering Facility: [facility] Address: [address] [place] [address] Performed By: #### 2 4323-8 ####[facility] [id number] [address], [facility] [place] Anion gap [Moles/Vol] 11 mmol/L Normal 8-15 [facility] Comment on above: Order Comment: Speci men Type: BLOOD SPECIMENOrdering Facility: [facility] Address: [address] [place] [address] Performed By: #### 2 4323-8 ####[facility] LABCL[facility] [id number] [address], [facility]95 [place] AST [Catalytic activity/Vol] 39 U/L Normal 14-40 [facility] Comment on above: Order Comment: Speci men Type: BLOOD SPECIMENOrdering Facility: [facility] Address: [address] [place], [place] [address] Performed By: #### 2 4323-8 ####[facility] [id number] [address] [place] [address] [place] Bilirubin [Mass/Vol] 0.6 mg/dL Normal 0.2-1.3 [facility] Comment on above: Order Comment: Speci men Type: BLOOD SPECIMENOrdering Facility: [facility] Address: [address] [place], [place] [address] Performed By: #### 2 4323-8 ####[facility] [id number] [address] [place] [address] [place] Calcium [Mass/Vol] 8.4 mg/dL Low 8.5-10.2 [facility] Comment on above: Order Comment: Speci men Type: BLOOD SPECIMENOrdering Facility: [facility] Address: [address] [place] [address] Performed By: #### 2 4323-8 ####[facility] [id number] [place] [address] [place] Chloride [Moles/Vol] 100 mmol/L Normal 98-107 [facility] Comment on above: Order Comment: Speci men Type: BLOOD SPECIMENOrdering Facility: [facility] Address: [address] [place] [address] Performed By: #### 2 4323-8 ####[facility] [id number] [place] [address] [place] CO2 [Moles/Vol] 27 mmol/L Normal 22-30 [facility] Comment on above: Order Comment: Speci men Type: BLOOD SPECIMENOrdering Facility: [facility] Address: [address] [place] [address] Performed By: #### 2 4323-8 ####[facility] [id number] [place] [address] [place] Creatinine [Mass/Vol] 0.78 mg/dL Normal 0.73-1.22 [facility] Comment on above: Order Comment: Speci men Type: BLOOD SPECIMENOrdering Facility: [facility] Address: [address] [place] [address] Performed By: #### 2 4323-8 ####[facility] [id number] [place] [address] [place] Creatinine and Glomerular filtration rate.predicted panel (S/P/Bld) 112 mL/min/1.73m??? Normal >=60 [facility] Comment on above: Order Comment: Speci men Type: BLOOD SPECIMENOrdering Facility: [facility] Address: [address] [place] [address] Result Comment: Rosanna mated Glomerular Filtration Rate (eGFR) is calculated using the 2020 CKD-EPI creatinine equation. This equation utilizes serum creatinine, sex, and age as parameters. The creatinine assay has traceable calibration to isotope dilution-mass spectrometry. Refer to KDIGO guidelines for clinical interpretation. In patients with unstable renal function, e.g. those with acute kidney injury, the eGFR may not accurately reflect actual GFR. Performed By: #### 2 4323-8 ####[facility] [id number] [place] [address] [place] Glucose [Mass/Vol] 230 mg/dL High 74-99 [facility] Comment on above: Order Comment: Moses burton Type: BLOOD SPECIMENOrdering Facility: [facility] Address: [address] [place] [address] Result Comment: The [place] [employer] (ADA) provides guidance for cutoff values for fasting glucose and random glucose. The ADA defines fasting as no caloric intake for at least 8 hours. Fasting plasma glucose results between 100 to 125 mg/dL indicate increased risk for diabetes (prediabetes).Fasting plasma glucose results greater than or equal to 126 mg/dL meet the criteria for diagnosis of diabetes. In the absence of unequivocal hyperglycemia, results should be confirmed by repeat testing. In a patient with classic symptoms of hyperglycemia or hyperglycemic crisis, random plasma glucose results greater than or equal to 200 mg/dL meet the criteria for diagnosis of diabetes.Reference: Standards of Medical Care in Diabetes 2016, [place] [employer]. Diabetes Care. 2016.39(Suppl 1). Performed By: #### 2 4323-8 ####[facility] [id number] [place] [id number] [place] Potassium [Moles/Vol] 3.7 mmol/L Normal 3.7-5.1 [facility] Comment on above: Order Comment: Moses burton Type: BLOOD SPECIMENOrdering Facility: [facility] Address: [address] [place] [address] Performed By: #### 2 4323-8 ####[facility] [id number] [place] [address] [place] Protein [Mass/Vol] 6.2 g/dL Low 6.3-8.0 [facility] Comment on above: Order Comment: Speci men Type: BLOOD SPECIMENOrdering Facility: [facility] Address: [address] [place] [address] Performed By: #### 2 4323-8 ####[facility] LABIA [id number] [place] [address] [place] Sodium [Moles/Vol] 138 mmol/L Normal 136-144 [facility] Comment on above: Order Comment: Speci men Type: BLOOD SPECIMENOrdering Facility: [facility] Address: [address] [place] [address] Performed By: #### 2 4323-8 ####[facility] LABIA [id number] [place] [address] [place] Urea nitrogen [Mass/Vol] 19 mg/dL Normal 9-24 [facility] Comment on above: Order Comment: Speci men Type: BLOOD SPECIMENOrdering Facility: [facility] Address: [address] [place] [address] Performed By: #### 2 4323-8 ####[facility] [id number] [place] [address] [place] ECG COMPLETEon 12-30-2024 ECG COMPLETE Normal [facility] PT panel Coag (PPP)on 2024 INR Coag (PPP) [Relative time] 1.9 {INR} High 0.9-1.3 [facility] Comment on above: Order Comment: Speci men Type: BLOOD SPECIMENOrdering Facility: [facility] Address: [address] [place] [address] Result Comment: Humaira min K Antagonist (VKA) Therapeutic Range: INR 2 to 3 (Target INR of 2.5)Note: For patients treated with VKA drugs, such as warfarin, the [place] [employer] 2012 Guideline recommends a therapeutic INR range of 2 to 3 (target INR of 2.5). This recommendation includes high-risk patients with antiphospholipid syndrome with previous arterial or venous thromboembolism, current-generation mechanical or bioprosthetic aortic heart valve replacement.Note: Patients with mechanical aortic valve replacement and additional risk factors for thromboembolic events (atrial fibrillation, previous thromboembolism, LV dysfunction, hypercoagulable conditions) or an older generation mechanical AVR (i.e., ball in-Cage) or any mechanical MVR should have a INR therapeutic range of 2.5 to 3.5 (target INR of 3).Delores GH, et al. Chest 2012, 141:7S-47SNishimaiden RA, et al. [facility] 2017, 70: 252-289 Performed By: #### 3 4528-0, PTTAC ####[facility] LABIA [id number] [place] [address] [place] PT Coag (PPP) [Time] 19.9 s High 9.7-13.0 [facility] Comment on above: Order Comment: Speci men Type: BLOOD SPECIMENOrdering Facility: [facility] Address: [address] [place] [address] Performed By: #### 3 4528-0, PTTAC ####[facility]IA [id number] [place] [address] [place] PTT, ANTICOAGULANT THERAPYon 12-30-2024 aPTT Coag (PPP) [Time] 53.1 s High 23.0-32.4 [facility] Comment on above: Order Comment: Speci men Type: BLOOD SPECIMENOrdering Facility: [facility] Address: [address] [place] [address] Performed By: #### P TTAC ####[facility] LABIA [id number] [place] [address] [place] aPTT Coag (PPP) [Time] 50.8 s High 23.0-32.4 [facility] Comment on above: Order Comment: Speci men Type: BLOOD SPECIMENOrdering Facility: [facility] Address: [address] [place] [address] Performed By: #### P TTAC ####[facility] [id number] [place] [id number] [place] aPTT Coag (PPP) [Time] 42.7 s High 23.0-32.4 [facility] Comment on above: Order Comment: Speci men Type: BLOOD SPECIMENOrdering Facility: [facility] Address: [address] [place] [address] Performed By: #### 3 4528-0, PTTAC ####[facility] [id number] [place] [address] [place] XR CHEST 2V FRONTAL/LATon XR CHEST 2V FRONTAL/LAT Normal [facility] B-HYDROXYBUTYRATEon 12-30-19 25 Beta hydroxybutyrate [Moles/Vol] 0.19 mmol/L Normal <0.28 [facility] Comment on above: Order Comment: Speci men Type: BLOOD SPECIMENOrdering Facility: [facility] Address: [address] [place] [address] Result Comment: This test was developed, and its performance characteristics determined by the [facility] Department of Pathology and Laboratory Medicine. It has not been cleared or approved by the FDA. The [facility] Department of Pathology and Laboratory Medicine is regulated under CLIA as qualified to perform high-complexity testing. This test is used for clinical purposes. It should not be regarded as investigational or for research. Performed By: #### 2 4362-6, B ####[facility] [id number] [place] [id number] [place] CBC panel Auto (Bld)on 12-29 Erythrocyte distribution width (RBC) [Ratio] 12.6 % Normal 11.5-15.0 [facility] Comment on above: Order Comment: Speci men Type: BLOOD SPECIMENOrdering Facility: [facility] Address: [address] [place] [address] Performed By: #### 5 8410-2 ####[facility]CL[facility] [id number] [address], [place] [address] [place] Hematocrit (Bld) [Volume fraction] 29.8 % Low 39.0-51.0 [facility] Comment on above: Order Comment: Speci men Type: BLOOD SPECIMENOrdering Facility: [facility] Address: [address] [place] [address] Performed By: #### 5 8410-2 ####[facility] LABIA [id number] [place] [address] [place] Hemoglobin (Bld) [Mass/Vol] 9.9 g/dL Low 13.0-17.0 [facility] Comment on above: Order Comment: Speci men Type: BLOOD SPECIMENOrdering Facility: [facility] Address: [address] [place] [address] Performed By: #### 5 8410-2 ####[facility]IA [id number] [place] [address] [place] MCH (RBC) [Entitic mass] 30.7 pg Normal 26.0-34.0 [facility] Comment on above: Order Comment: Speci men Type: BLOOD SPECIMENOrdering Facility: [facility] Address: [address] [place] [address] Performed By: #### 5 8410-2 ####[facility] [id number] [place] [id number] [place] MCHC (RBC) [Mass/Vol] 33.2 g/dL Normal 30.5-36.0 [facility] Comment on above: Order Comment: Speci men Type: BLOOD SPECIMENOrdering Facility: [facility] Address: [address] [place] [address] Performed By: #### 5 8410-2 ####[facility] [id number] [place] [id number] [place] MCV (RBC) [Entitic vol] 92.3 fL Normal 80.0-100.0 [facility] Comment on above: Order Comment: Speci men Type: BLOOD SPECIMENOrdering Facility: [facility] Address: [address] [place] [address] Performed By: #### 5 8410-2 ####[facility]CL[facility] [id number] [place] [address] [place] Nucleated RBC (Bld) [#/Vol] 10*3/uL Normal <0.01 [facility] Comment on above: Order Comment: Speci men Type: BLOOD SPECIMENOrdering Facility: [facility] Address: [address] [place] [address] Performed By: #### 5 8410-2 ####[facility] [id number] [place] [address] [place] Platelet mean volume (Bld) [Entitic vol] 10.5 fL Normal 9.0-12.7 [facility] Comment on above: Order Comment: Speci men Type: BLOOD SPECIMENOrdering Facility: [facility] Address: [address] [place] [address] Performed By: #### 5 8410-2 ####[facility] [id number] [place] [address] [place] Platelets (Bld) [#/Vol] 163 10*3/uL Normal 150-400 [facility] Comment on above: Order Comment: Speci men Type: BLOOD SPECIMENOrdering Facility: [facility] Address: [address] [place] [address] Performed By: #### 5 8410-2 ####[facility] [id number] [place] [address] [place] RBC (Bld) [#/Vol] 3.23 10*6/uL Low 4.20-6.00 [facility] Comment on above: Order Comment: Speci men Type: BLOOD SPECIMENOrdering Facility: [facility] Address: [address] [place] [address] Performed By: #### 5 8410-2 ####[facility] [id number] [address] [address] [place] WBC (Bld) [#/Vol] 9.66 10*3/uL Normal 3.70-11.00 [facility] Comment on above: Order Comment: Speci men Type: BLOOD SPECIMENOrdering Facility: [facility] Address: [address] [place] [address] Performed By: #### 5 8410-2 ####[facility] [id number] [place] [address] [place] CONSULT PROGon 12-29-2024 CONSULT PROG Normal [facility] Comprehensive metabolic 2000 panelon 12-29-2024 Albumin [Mass/Vol] 3.1 g/dL Low 3.9-4.9 [facility] Comment on above: Order Comment: Speci men Type: BLOOD SPECIMENOrdering Facility: [facility] Address: [address] [place] [address] Performed By: #### 2 4323-8 ####[facility] [id number] [address] [address] [place] ALP [Catalytic activity/Vol] 69 U/L Normal 38-113 [facility] Comment on above: Order Comment: Speci men Type: BLOOD SPECIMENOrdering Facility: [facility] Address: [address] [place] [address] Performed By: #### 2 4323-8 ####[facility] [id number] [place] [id number] [place] ALT [Catalytic activity/Vol] 40 U/L Normal 10-54 [facility] Comment on above: Order Comment: Speci men Type: BLOOD SPECIMENOrdering Facility: [facility] Address: [address] [place] [address] [place] [address] Performed By: #### 2 4323-8 ####[facility] [id number] [address] [place] [address] [place] Anion gap [Moles/Vol] 9 mmol/L Normal 8-15 [facility] Comment on above: Order Comment: Speci men Type: BLOOD SPECIMENOrdering Facility: [facility] Address: [address] [place] [address] Performed By: #### 2 4323-8 ####[facility] [id number] [address], [facility]95 [place] AST [Catalytic activity/Vol] 66 U/L High 14-40 [facility] Comment on above: Order Comment: Speci men Type: BLOOD SPECIMENOrdering Facility: [facility] Address: [address] [place] [address] Performed By: #### 2 4323-8 ####[facility] [id number] [address], [facility]95 [place] Bilirubin [Mass/Vol] 0.5 mg/dL Normal 0.2-1.3 [facility] Comment on above: Order Comment: Speci men Type: BLOOD SPECIMENOrdering Facility: [facility] Address: [address] [place], [place] [address] Performed By: #### 2 4323-8 ####[facility] [id number] [address] [address] [place] Calcium [Mass/Vol] 8.6 mg/dL Normal 8.5-10.2 [facility] Comment on above: Order Comment: Speci men Type: BLOOD SPECIMENOrdering Facility: [facility] Address: [address] [place], [place] [address] Performed By: #### 2 4323-8 ####[facility] [id number] [place] [id number] [place] Chloride [Moles/Vol] 99 mmol/L Normal 98-107 [facility] Comment on above: Order Comment: Speci men Type: BLOOD SPECIMENOrdering Facility: [facility] Address: [address] [place] [address] Performed By: #### 2 4323-8 ####[facility] [id number] [place] [address] [place] CO2 [Moles/Vol] 28 mmol/L Normal 22-30 [facility] Comment on above: Order Comment: Speci men Type: BLOOD SPECIMENOrdering Facility: [facility] Address: [address] [place] [address] Performed By: #### 2 4323-8 ####[facility] [id number] [place] [address] [place] Creatinine [Mass/Vol] 0.81 mg/dL Normal 0.73-1.22 [facility] Comment on above: Order Comment: Speci men Type: BLOOD SPECIMENOrdering Facility: [facility] Address: [address] [place] [address] Performed By: #### 2 4323-8 ####[facility] [id number] [address] [place] OF [facility] Creatinine and Glomerular filtration rate.predicted panel (S/P/Bld) 111 mL/min/1.73m??? Normal >=60 [facility] Comment on above: Order Comment: Speci men Type: BLOOD SPECIMENOrdering Facility: [facility] Address: [address] [place] [address] Result Comment: Rosanna mated Glomerular Filtration Rate (eGFR) is calculated using the 2020 CKD-EPI creatinine equation. This equation utilizes serum creatinine, sex, and age as parameters. The creatinine assay has traceable calibration to isotope dilution-mass spectrometry. Refer to KDIGO guidelines for clinical interpretation. In patients with unstable renal function, e.g. those with acute kidney injury, the eGFR may not accurately reflect actual GFR. Performed By: #### 2 4323-8 ####[facility] [id number] [address] [address] [place] Glucose [Mass/Vol] 287 mg/dL High 74-99 [facility] Comment on above: Order Comment: Speci men Type: BLOOD SPECIMENOrdering Facility: [facility] Address: [address] [place] [address] Result Comment: The [place] [employer] (ADA) provides guidance for cutoff values for fasting glucose and random glucose. The ADA defines fasting as no caloric intake for at least 8 hours. Fasting plasma glucose results between 100 to 125 mg/dL indicate increased risk for diabetes (prediabetes).Fasting plasma glucose results greater than or equal to 126 mg/dL meet the criteria for diagnosis of diabetes. In the absence of unequivocal hyperglycemia, results should be confirmed by repeat testing. In a patient with classic symptoms of hyperglycemia or hyperglycemic crisis, random plasma glucose results greater than or equal to 200 mg/dL meet the criteria for diagnosis of diabetes.Reference: Standards of Medical Care in Diabetes 2016, [place] [employer]. Diabetes Care. 2016.39(Suppl 1). Performed By: #### 2 4323-8 ####[facility] [id number] [place] [id number] [place] Potassium [Moles/Vol] 4.6 mmol/L Normal 3.7-5.1 [facility] Comment on above: Order Comment: Speci men Type: BLOOD SPECIMENOrdering Facility: [facility] Address: [address] [place] [address] Performed By: #### 2 4323-8 ####[facility] [id number] [address] [address] [place] Protein [Mass/Vol] 5.4 g/dL Low 6.3-8.0 [facility] Comment on above: Order Comment: Speci men Type: BLOOD SPECIMENOrdering Facility: [facility] Address: [address] [place], [place] [address] Performed By: #### 2 4323-8 ####[facility] [id number] [place] [id number] [place] Sodium [Moles/Vol] 136 mmol/L Normal 136-144 [facility] Comment on above: Order Comment: Speci men Type: BLOOD SPECIMENOrdering Facility: [facility] Address: [address] [place] [address] Performed By: #### 2 4323-8 ####[facility] [id number] [place] [address] [place] Urea nitrogen [Mass/Vol] 20 mg/dL Normal 9-24 [facility] Comment on above: Order Comment: Speci men Type: BLOOD SPECIMENOrdering Facility: [facility] Address: [address] [place] [address] Performed By: #### 2 4323-8 ####[facility] [id number] [place] [address] [place] [id number] 12-29-2024 ECG01 Normal [facility] PT EDon 12-29-2024 PT ED Normal [facility] PT panel Coag (PPP)on 2024 INR Coag (PPP) [Relative time] 1.7 {INR} High 0.9-1.3 [facility] Comment on above: Order Comment: Speci men Type: BLOOD SPECIMENOrdering Facility: [facility] Address: [address] [place] [address] Result Comment: Humaira min K Antagonist (VKA) Therapeutic Range: INR 2 to 3 (Target INR of 2.5)Note: For patients treated with VKA drugs, such as warfarin, the [place] [employer] 2012 Guideline recommends a therapeutic INR range of 2 to 3 (target INR of 2.5). This recommendation includes high-risk patients with antiphospholipid syndrome with previous arterial or venous thromboembolism, current-generation mechanical or bioprosthetic aortic heart valve replacement.Note: Patients with mechanical aortic valve replacement and additional risk factors for thromboembolic events (atrial fibrillation, previous thromboembolism, LV dysfunction, hypercoagulable conditions) or an older generation mechanical AVR (i.e., ball in-Cage) or any mechanical MVR should have a INR therapeutic range of 2.5 to 3.5 (target INR of 3).Bharattt GH, et al. Chest 2012, 141:7S-47SNishimura RA, et al. [facility] 2017, 70: 252-289 Performed By: #### P TTAC, 55893-1 ####[facility] [id number] [place] [address] [place] PT Coag (PPP) [Time] 17.7 s High 9.7-13.0 [facility] Comment on above: Order Comment: Speci men Type: BLOOD SPECIMENOrdering Facility: [facility] Address: [address] [place] [address] Performed By: #### P TTAC, 34591-9 ####[facility] [id number] [place] [address] [place] PTT, ANTICOAGULANT THERAPYon 12-29-2024 aPTT Coag (PPP) [Time] 49.8 s High 23.0-32.4 [facility] Comment on above: Order Comment: Speci men Type: BLOOD SPECIMENOrdering Facility: [facility] Address: [address] [place] [address] Performed By: #### P TTAC ####[facility] [id number] [place] [address] [place] aPTT Coag (PPP) [Time] 58.5 s High 23.0-32.4 [facility] Comment on above: Order Comment: Speci men Type: BLOOD SPECIMENOrdering Facility: [facility] Address: [address] [place] [address] Performed By: #### P TTAC ####[facility] [id number] [place] [address] [place] aPTT Coag (PPP) [Time] 67.5 s High 23.0-32.4 [facility] Comment on above: Order Comment: Speci men Type: BLOOD SPECIMENOrdering Facility: [facility] Address: [address] [place], [place] [address] Performed By: #### P [facility], 94072-3 ####[facility] [id number] [address] [place] [address] [place] Renal function 2000 panelon 12-29-2024 Albumin [Mass/Vol] 3.1 g/dL Low 3.9-4.9 [facility] Comment on above: Order Comment: Speci men Type: BLOOD SPECIMENOrdering Facility: [facility] Address: [address] [place], [place] [address] Performed By: #### 2 4362-6, B ####[facility] [id number] [address] [address] [place] Anion gap [Moles/Vol] 10 mmol/L Normal 8-15 [facility] Comment on above: Order Comment: Speci men Type: BLOOD SPECIMENOrdering Facility: [facility] Address: [address] [place], [place] [address] Performed By: #### 2 4362-6, B ####[facility] [id number] [address] [address] [place] Calcium [Mass/Vol] 8.5 mg/dL Normal 8.5-10.2 [facility] Comment on above: Order Comment: Speci men Type: BLOOD SPECIMENOrdering Facility: [facility] Address: [address] [id number] Performed By: #### 2 4362-6, B ####[facility] [id number] [address] [address] [place] Chloride [Moles/Vol] 98 mmol/L Normal 98-107 [facility] Comment on above: Order Comment: Speci men Type: BLOOD SPECIMENOrdering Facility: [facility] Address: [address] [place], [place] [address] Performed By: #### 2 4362-6, B ####[facility] [id number] [facility] [address] [place] [address] [place] CO2 [Moles/Vol] 28 mmol/L Normal 22-30 [facility] Comment on above: Order Comment: Speci men Type: BLOOD SPECIMENOrdering Facility: [facility] Address: [address] [place] [address] Performed By: #### 2 4362-6, B ####[facility] [id number] [address] [place] [address] [place] Creatinine [Mass/Vol] 0.90 mg/dL Normal 0.73-1.22 [facility] Comment on above: Order Comment: Speci men Type: BLOOD SPECIMENOrdering Facility: [facility] Address: [address] [place] [address] Performed By: #### 2 4362-6, B ####[facility] LABIA [id number] [address] [place] [address] [place] Creatinine and Glomerular filtration rate.predicted panel (S/P/Bld) 107 mL/min/1.73m??? Normal >=60 [facility] Comment on above: Order Comment: Speci men Type: BLOOD SPECIMENOrdering Facility: [facility] Address: [address] [place] [address] Result Comment: Rosanna mated Glomerular Filtration Rate (eGFR) is calculated using the 2020 CKD-EPI creatinine equation. This equation utilizes serum creatinine, sex, and age as parameters. The creatinine assay has traceable calibration to isotope dilution-mass spectrometry. Refer to KDIGO guidelines for clinical interpretation. In patients with unstable renal function, e.g. those with acute kidney injury, the eGFR may not accurately reflect actual GFR. Performed By: #### 2 4362-6, BHB ####[facility] [id number] [facility] [address] [place] [address] [place] Glucose [Mass/Vol] 379 mg/dL High 74-99 [facility] Comment on above: Order Comment: Speci men Type: BLOOD SPECIMENOrdering Facility: [facility] Address: [address] [place] [address] Result Comment: The [place] [employer] (ADA) provides guidance for cutoff values for fasting glucose and random glucose. The ADA defines fasting as no caloric intake for at least 8 hours. Fasting plasma glucose results between 100 to 125 mg/dL indicate increased risk for diabetes (prediabetes).Fasting plasma glucose results greater than or equal to 126 mg/dL meet the criteria for diagnosis of diabetes. In the absence of unequivocal hyperglycemia, results should be confirmed by repeat testing. In a patient with classic symptoms of hyperglycemia or hyperglycemic crisis, random plasma glucose results greater than or equal to 200 mg/dL meet the criteria for diagnosis of diabetes.Reference: Standards of Medical Care in Diabetes 2016, [place] [employer]. Diabetes Care. 2016.39(Suppl 1). Performed By: #### 2 4362-6, B ####[facility] [id number] [place] [address] [place] Phosphate [Mass/Vol] 2.2 mg/dL Low 2.7-4.8 [facility] Comment on above: Order Comment: Moses burton Type: BLOOD SPECIMENOrdering Facility: [facility] Address: [address] [place] [address] Performed By: #### 2 4362-6, [facility] ####[facility] [id number] [facility] [place] [place] [address] [place] Potassium [Moles/Vol] 3.8 mmol/L Normal 3.7-5.1 [facility] Comment on above: Order Comment: Moses burton Type: BLOOD SPECIMENOrdering Facility: [facility] Address: [address] [place], [place] [address] Performed By: #### 2 4362-6, B ####[facility] [id number] [facility] [place] [id number] [place] Sodium [Moles/Vol] 136 mmol/L Normal 136-144 [facility] Comment on above: Order Comment: Speci men Type: BLOOD SPECIMENOrdering Facility: [facility] Address: [address] [place] [address] Performed By: #### 2 4362-6, Yvonne ####[facility] [id number] [facility] [address] [place] [address] [place] Urea nitrogen [Mass/Vol] 20 mg/dL Normal 9-24 [facility] Comment on above: Order Comment: Speci men Type: BLOOD SPECIMENOrdering Facility: [facility] Address: [address] [place] [address] Performed By: #### 2 4362-6, [facility] ####[facility] [id number] [address], [place] [address] [place] US CHEST EFFUSION SURVEYon 0 12-29-2024 US CHEST EFFUSION SURVEY Normal [facility] ALLIED HEALTHon 12-28-2024 ALLIED HEALTH Normal [facility] CBC panel Auto (Bld)on 12-28 Erythrocyte distribution width (RBC) [Ratio] 12.6 % Normal 11.5-15.0 [facility] Comment on above: Order Comment: Speci men Type: BLOOD SPECIMENOrdering Facility: [facility] Address: [address] [place] [address] Performed By: #### 5 8410-2 ####[facility] [id number] [place] [address] [place] Hematocrit (Bld) [Volume fraction] 30.2 % Low 39.0-51.0 [facility] Comment on above: Order Comment: Speci men Type: BLOOD SPECIMENOrdering Facility: [facility] Address: [address] [place] [address] Performed By: #### 5 8410-2 ####[facility] [id number] [facility] [address], [facility] [place] Hemoglobin (Bld) [Mass/Vol] 10.0 g/dL Low 13.0-17.0 [facility] Comment on above: Order Comment: Speci men Type: BLOOD SPECIMENOrdering Facility: [facility] Address: [address] [place] [address] Performed By: #### 5 8410-2 ####[facility] LABIA [id number] [place] [address] [place] MCH (RBC) [Entitic mass] 30.4 pg Normal 26.0-34.0 [facility] Comment on above: Order Comment: Speci men Type: BLOOD SPECIMENOrdering Facility: [facility] Address: [address] [place] [address] Performed By: #### 5 8410-2 ####[facility] LABIA [id number] [place] [address] [place] MCHC (RBC) [Mass/Vol] 33.1 g/dL Normal 30.5-36.0 [facility] Comment on above: Order Comment: Speci men Type: BLOOD SPECIMENOrdering Facility: [facility] Address: [address] [place] [address] Performed By: #### 5 8410-2 ####[facility] LABIA [id number] [place] [address] [place] MCV (RBC) [Entitic vol] 91.8 fL Normal 80.0-100.0 [facility] Comment on above: Order Comment: Speci men Type: BLOOD SPECIMENOrdering Facility: [facility] Address: [address] [place] [address] Performed By: #### 5 8410-2 ####[facility] LABIA [id number] [place] [address] [place] Nucleated RBC (Bld) [#/Vol] 10*3/uL Normal <0.01 [facility] Comment on above: Order Comment: Speci men Type: BLOOD SPECIMENOrdering Facility: [facility] Address: [address] [place], [place] [address] Performed By: #### 5 8410-2 ####[facility]CL[facility] [id number] [place] [address] [place] Platelet mean volume (Bld) [Entitic vol] 10.8 fL Normal 9.0-12.7 [facility] Comment on above: Order Comment: Speci men Type: BLOOD SPECIMENOrdering Facility: [facility] Address: [address] [place] [address] Performed By: #### 5 8410-2 ####[facility]CL[facility] [id number] [place] [address] [place] Platelets (Bld) [#/Vol] 126 10*3/uL Low 150-400 [facility] Comment on above: Order Comment: Speci men Type: BLOOD SPECIMENOrdering Facility: [facility] Address: [address] [place] [address] Performed By: #### 5 8410-2 ####[facility]CL[facility] [id number] [place] [address] [place] RBC (Bld) [#/Vol] 3.29 10*6/uL Low 4.20-6.00 [facility] Comment on above: Order Comment: Speci men Type: BLOOD SPECIMENOrdering Facility: [facility] Address: [address] [place] [address] Performed By: #### 5 8410-2 ####[facility]CL[facility] [id number] [place] [id number] [place] WBC (Bld) [#/Vol] 9.15 10*3/uL Normal 3.70-11.00 [facility] Comment on above: Order Comment: Speci men Type: BLOOD SPECIMENOrdering Facility: [facility] Address: [address] [place] [address] Performed By: #### 5 8410-2 ####[facility]CL[facility] [id number] [address] [place] [address] [place] CNDSon 12-28-2024 CNDS Normal [facility] CONSULT PROGon 12-28-2024 CONSULT PROG Normal [facility] Comprehensive metabolic 2000 panelon 12-28-2024 Albumin [Mass/Vol] 3.0 g/dL Low 3.9-4.9 [facility] Comment on above: Order Comment: Speci men Type: BLOOD SPECIMENOrdering Facility: [facility] Address: [address] [place], [place] [address] Performed By: #### 2 4323-8 ####[facility] [id number] [address] [place] [address] [place] ALP [Catalytic activity/Vol] 64 U/L Normal 38-113 [facility] Comment on above: Order Comment: Speci men Type: BLOOD SPECIMENOrdering Facility: [facility] Address: [address] [place] [address] Performed By: #### 2 4323-8 ####[facility]CL[facility] [id number] [address] [place] [address] [place] ALT [Catalytic activity/Vol] 44 U/L Normal 10-54 [facility] Comment on above: Order Comment: Speci men Type: BLOOD SPECIMENOrdering Facility: [facility] Address: [address] [place], [place] [address] Performed By: #### 2 4323-8 ####[facility]CL[facility] [id number] [address] [place] [address] [place] Anion gap [Moles/Vol] 11 mmol/L Normal 8-15 [facility] Comment on above: Order Comment: Speci men Type: BLOOD SPECIMENOrdering Facility: [facility] Address: [address] [place], [place] [address] Performed By: #### 2 4323-8 ####[facility] [id number] [address] [place] [address] [place] AST [Catalytic activity/Vol] 100 U/L High 14-40 [facility] Comment on above: Order Comment: Speci men Type: BLOOD SPECIMENOrdering Facility: [facility] Address: [address] [place] [address] Performed By: #### 2 4323-8 ####[facility]CL[facility] [id number] [facility] [place] [id number] [place] Bilirubin [Mass/Vol] 0.5 mg/dL Normal 0.2-1.3 [facility] Comment on above: Order Comment: Speci men Type: BLOOD SPECIMENOrdering Facility: [facility] Address: [address] [place] [address] Performed By: #### 2 4323-8 ####[facility] [id number] [place] [address] [place] Calcium [Mass/Vol] 8.0 mg/dL Low 8.5-10.2 [facility] Comment on above: Order Comment: Speci men Type: BLOOD SPECIMENOrdering Facility: [facility] Address: [address] [place] [address] Performed By: #### 2 4323-8 ####[facility]CL[facility] [id number] [place] [address] [place] Chloride [Moles/Vol] 101 mmol/L Normal 98-107 [facility] Comment on above: Order Comment: Speci men Type: BLOOD SPECIMENOrdering Facility: [facility] Address: [address] [place] [address] Performed By: #### 2 4323-8 ####[facility]CL[facility] [id number] [place] [id number] [place] CO2 [Moles/Vol] 25 mmol/L Normal 22-30 [facility] Comment on above: Order Comment: Speci men Type: BLOOD SPECIMENOrdering Facility: [facility] Address: [address] [place] [address] Performed By: #### 2 4323-8 ####[facility] LABIA [id number] [place] [id number] [place] Creatinine [Mass/Vol] 0.67 mg/dL Low 0.73-1.22 [facility] Comment on above: Order Comment: Speci men Type: BLOOD SPECIMENOrdering Facility: [facility] Address: [address] [place] [address] Performed By: #### 2 4323-8 ####[facility] LABIA [id number] [place] [address] [place] Creatinine and Glomerular filtration rate.predicted panel (S/P/Bld) 117 mL/min/1.73m??? Normal >=60 [facility] Comment on above: Order Comment: Speci men Type: BLOOD SPECIMENOrdering Facility: [facility] Address: [address] [place] [address] Result Comment: Rosanna mated Glomerular Filtration Rate (eGFR) is calculated using the 2020 CKD-EPI creatinine equation. This equation utilizes serum creatinine, sex, and age as parameters. The creatinine assay has traceable calibration to isotope dilution-mass spectrometry. Refer to KDIGO guidelines for clinical interpretation. In patients with unstable renal function, e.g. those with acute kidney injury, the eGFR may not accurately reflect actual GFR. Performed By: #### 2 4323-8 ####[facility] [id number] [place] [id number] [place] Glucose [Mass/Vol] 167 mg/dL High 74-99 [facility] Comment on above: Order Comment: Speci men Type: BLOOD SPECIMENOrdering Facility: [facility] Address: [address] [place] [address] Result Comment: The [place] Diabetes Association (ADA) provides guidance for cutoff values for fasting glucose and random glucose. The ADA defines fasting as no caloric intake for at least 8 hours. Fasting plasma glucose results between 100 to 125 mg/dL indicate increased risk for diabetes (prediabetes).Fasting plasma glucose results greater than or equal to 126 mg/dL meet the criteria for diagnosis of diabetes. In the absence of unequivocal hyperglycemia, results should be confirmed by repeat testing. In a patient with classic symptoms of hyperglycemia or hyperglycemic crisis, random plasma glucose results greater than or equal to 200 mg/dL meet the criteria for diagnosis of diabetes.Reference: Standards of Medical Care in Diabetes 2016, [place] [employer]. Diabetes Care. 2016.39(Suppl 1). Performed By: #### 2 4323-8 ####[facility]CL[facility] [id number] [place] [id number] [place] Potassium [Moles/Vol] 4.0 mmol/L Normal 3.7-5.1 [facility] Comment on above: Order Comment: Speci men Type: BLOOD SPECIMENOrdering Facility: [facility] Address: [address] [place] [address] Performed By: #### 2 4323-8 ####[facility]CL[facility] [id number] [place] [id number] [place] Protein [Mass/Vol] 5.4 g/dL Low 6.3-8.0 [facility] Comment on above: Order Comment: Speci men Type: BLOOD SPECIMENOrdering Facility: [facility] Address: [address] [place] [address] Performed By: #### 2 4323-8 ####[facility] [id number] [place] [id number] [place] Sodium [Moles/Vol] 137 mmol/L Normal 136-144 [facility] Comment on above: Order Comment: Speci men Type: BLOOD SPECIMENOrdering Facility: [facility] Address: [address] [place] [address] Performed By: #### 2 4323-8 ####[facility]CL[facility] [id number] [facility] [address] [address] [place] Urea nitrogen [Mass/Vol] 19 mg/dL Normal 9-24 [facility] Comment on above: Order Comment: Speci men Type: BLOOD SPECIMENOrdering Facility: [facility] Address: [address] [place] [address] Performed By: #### 2 4323-8 ####[facility]CL[facility] [id number] [place] [address] [place] PT panel Coag (PPP)on 2024 INR Coag (PPP) [Relative time] 1.6 {INR} High 0.9-1.3 [facility] Comment on above: Order Comment: Moses men Type: BLOOD SPECIMENOrdering Facility: [facility] Address: [address] [place] [address] Result Comment: Humaira min K Antagonist (VKA) Therapeutic Range: INR 2 to 3 (Target INR of 2.5)Note: For patients treated with VKA drugs, such as warfarin, the [place] [employer] 2012 Guideline recommends a therapeutic INR range of 2 to 3 (target INR of 2.5). This recommendation includes high-risk patients with antiphospholipid syndrome with previous arterial or venous thromboembolism, current-generation mechanical or bioprosthetic aortic heart valve replacement.Note: Patients with mechanical aortic valve replacement and additional risk factors for thromboembolic events (atrial fibrillation, previous thromboembolism, LV dysfunction, hypercoagulable conditions) or an older generation mechanical AVR (i.e., ball in-Cage) or any mechanical MVR should have a INR therapeutic range of 2.5 to 3.5 (target INR of 3).Delores GH, et al. Chest 2012, 141:7S-47SNishdinah RA, et al. [facility] 2017, 70: 252-289 Performed By: #### 3 4528-0 ####[facility] [id number] [place] [id number] [place] PT Coag (PPP) [Time] 16.9 s High 9.7-13.0 [facility] Comment on above: Order Comment: Moses burton Type: BLOOD SPECIMENOrdering Facility: [facility] Address: [address] [place] [address] Performed By: #### 3 4528-0 ####[facility] [id number] [place] [id number] [place] PTT, ANTICOAGULANT THERAPYon 12-28-2024 aPTT Coag (PPP) [Time] 66.9 s High 23.0-32.4 [facility] Comment on above: Order Comment: Speci men Type: BLOOD SPECIMENOrdering Facility: [facility] Address: [address] [place] [address] Performed By: #### P TTAC ####[facility] [id number] [place] [id number] [place] THERAPY NTon 12-28-2024 THERAPY NT Normal [facility] XR CHEST 2V FRONTAL/LATon XR CHEST 2V FRONTAL/LAT Normal [facility] ALLIED HEALTHon 12-27-2024 ALLIED HEALTH Normal [facility] CASE MANAGEMon 12-27-2024 CASE MANAGEM Normal [facility] CBC panel Auto (Bld)on 12-27 Erythrocyte distribution width (RBC) [Ratio] 12.7 % Normal 11.5-15.0 [facility] Comment on above: Order Comment: Speci men Type: BLOOD SPECIMENOrdering Facility: [facility] Address: [address] [place] [address] Performed By: #### 5 8410-2 ####[facility] [id number] [place] [address] [place] Hematocrit (Bld) [Volume fraction] 29.3 % Low 39.0-51.0 [facility] Comment on above: Order Comment: Speci men Type: BLOOD SPECIMENOrdering Facility: [facility] Address: [address] [place] [address] Performed By: #### 5 8410-2 ####[facility] [id number] [place] [id number] [place] Hemoglobin (Bld) [Mass/Vol] 10.2 g/dL Low 13.0-17.0 [facility] Comment on above: Order Comment: Speci men Type: BLOOD SPECIMENOrdering Facility: [facility] Address: [address] [place] [address] Performed By: #### 5 8410-2 ####[facility] [id number] [place] [address] [place] MCH (RBC) [Entitic mass] 30.5 pg Normal 26.0-34.0 [facility] Comment on above: Order Comment: Speci men Type: BLOOD SPECIMENOrdering Facility: [facility] Address: [address] [place] [address] Performed By: #### 5 8410-2 ####[facility] [id number] [place] [address] [place] MCHC (RBC) [Mass/Vol] 34.8 g/dL Normal 30.5-36.0 [facility] Comment on above: Order Comment: Speci men Type: BLOOD SPECIMENOrdering Facility: [facility] Address: [address] [place] [address] Performed By: #### 5 8410-2 ####[facility] [id number] [place] [address] [place] MCV (RBC) [Entitic vol] 87.7 fL Normal 80.0-100.0 [facility] Comment on above: Order Comment: Speci men Type: BLOOD SPECIMENOrdering Facility: [facility] Address: [address] [place] [address] Performed By: #### 5 8410-2 ####[facility] [id number] [place] [address] [place] Nucleated RBC (Bld) [#/Vol] 10*3/uL Normal <0.01 [facility] Comment on above: Order Comment: Speci men Type: BLOOD SPECIMENOrdering Facility: [facility] Address: [address] [place] [address] Performed By: #### 5 8410-2 ####[facility] [id number] [facility] [address] [place] [address] [place] Platelet mean volume (Bld) [Entitic vol] 10.6 fL Normal 9.0-12.7 [facility] Comment on above: Order Comment: Speci men Type: BLOOD SPECIMENOrdering Facility: [facility] Address: [address] [place] [address] Performed By: #### 5 8410-2 ####[facility] [id number] [facility] [address] [place] [address] [place] Platelets (Bld) [#/Vol] 128 10*3/uL Low 150-400 [facility] Comment on above: Order Comment: Speci men Type: BLOOD SPECIMENOrdering Facility: [facility] Address: [address] [place] [address] Performed By: #### 5 8410-2 ####[facility] [id number] [facility] [address] [place] [address] [place] RBC (Bld) [#/Vol] 3.34 10*6/uL Low 4.20-6.00 [facility] Comment on above: Order Comment: Speci men Type: BLOOD SPECIMENOrdering Facility: [facility] Address: [address] [place] [address] Performed By: #### 5 8410-2 ####[facility] [id number] [address] [place] [address] [place] WBC (Bld) [#/Vol] 12.12 10*3/uL High 3.70-11.00 [facility] Comment on above: Order Comment: Speci men Type: BLOOD SPECIMENOrdering Facility: [facility] Address: [address] [place] [address] Performed By: #### 5 8410-2 ####[facility] [id number] [facility] [place] [id number] [place] CONSULT PROGon 12-27-2024 CONSULT PROG Normal [facility] metabolic 2000 panelon 12-27-2024 Albumin [Mass/Vol] 3.2 g/dL Low 3.9-4.9 [facility] Comment on above: Order Comment: Speci men Type: BLOOD SPECIMENOrdering Facility: [facility] Address: [address] [place] [address] Performed By: #### 2 4323-8 ####[facility] [id number] [place] [id number] [place] ALP [Catalytic activity/Vol] 62 U/L Normal 38-113 [facility] Comment on above: Order Comment: Speci men Type: BLOOD SPECIMENOrdering Facility: [facility] Address: [address] [place] [address] Performed By: #### 2 4323-8 ####[facility] [id number] [place] [address] [place] ALT [Catalytic activity/Vol] 48 U/L Normal 10-54 [facility] Comment on above: Order Comment: Speci men Type: BLOOD SPECIMENOrdering Facility: [facility] Address: [address] [place] [address] Performed By: #### 2 4323-8 ####[facility] [id number] [place] [id number] [place] [place] Anion gap [Moles/Vol] 12 mmol/L Normal 8-15 [facility] Comment on above: Order Comment: Speci men Type: BLOOD SPECIMENOrdering Facility: [facility] Address: [address] [place] [address] Performed By: #### 2 4323-8 ####[facility] [id number] [place] [id number] [place] AST [Catalytic activity/Vol] 147 U/L High 14-40 [facility] Comment on above: Order Comment: Speci men Type: BLOOD SPECIMENOrdering Facility: [facility] Address: [address] [place] [id number] Performed By: #### 2 4323-8 ####[facility] [id number] [address] [address] [place] Bilirubin [Mass/Vol] 0.6 mg/dL Normal 0.2-1.3 [facility] Comment on above: Order Comment: Speci men Type: BLOOD SPECIMENOrdering Facility: [facility] Address: [address] [place] [address] Performed By: #### 2 4323-8 ####[facility] [id number] [place] [address] [place] Calcium [Mass/Vol] 8.0 mg/dL Low 8.5-10.2 [facility] Comment on above: Order Comment: Speci men Type: BLOOD SPECIMENOrdering Facility: [facility] Address: [address] [place], [place] [address] Performed By: #### 2 4323-8 ####[facility] [id number] [place] [address] [place] Chloride [Moles/Vol] 101 mmol/L Normal 98-107 [facility] Comment on above: Order Comment: Speci men Type: BLOOD SPECIMENOrdering Facility: [facility] Address: [address] [place], [place] [id number] Performed By: #### 2 4323-8 ####[facility] [id number] [place] [id number] [place] CO2 [Moles/Vol] 22 mmol/L Normal 22-30 [facility] Comment on above: Order Comment: Speci men Type: BLOOD SPECIMENOrdering Facility: [facility] Address: [address] [place], [place] [address] Performed By: #### 2 4323-8 ####[facility] [id number] [address] [address] [place] Creatinine [Mass/Vol] 0.83 mg/dL Normal 0.73-1.22 [facility] Comment on above: Order Comment: Moses burton Type: BLOOD SPECIMENOrdering Facility: [facility] Address: [address] [place] [address] Performed By: #### 2 4323-8 ####[facility]ITAL[facility] [id number] [address] Creatinine and Glomerular filtration rate.predicted panel (S/P/Bld) 110 mL/min/1.73m??? Normal >=60 [facility] Comment on above: Order Comment: Moses burton Type: BLOOD SPECIMENOrdering Facility: [facility] Address: [address] [place] [address] Result Comment: Rosanna mated Glomerular Filtration Rate (eGFR) is calculated using the 2020 CKD-EPI creatinine equation. This equation utilizes serum creatinine, sex, and age as parameters. The creatinine assay has traceable calibration to isotope dilution-mass spectrometry. Refer to KDIGO guidelines for clinical interpretation. In patients with unstable renal function, e.g. those with acute kidney injury, the eGFR may not accurately reflect actual GFR. Performed By: #### 2 4323-8 ####[facility] LABIA [id number] [place] [id number] [place] Glucose [Mass/Vol] 200 mg/dL High 74-99 [facility] Comment on above: Order Comment: Moses burton Type: BLOOD SPECIMENOrdering Facility: [facility] Address: [address] [place] [address] Result Comment: The [place] [employer] (ADA) provides guidance for cutoff values for fasting glucose and random glucose. The ADA defines fasting as no caloric intake for at least 8 hours. Fasting plasma glucose results between 100 to 125 mg/dL indicate increased risk for diabetes (prediabetes).Fasting plasma glucose results greater than or equal to 126 mg/dL meet the criteria for diagnosis of diabetes. In the absence of unequivocal hyperglycemia, results should be confirmed by repeat testing. In a patient with classic symptoms of hyperglycemia or hyperglycemic crisis, random plasma glucose results greater than or equal to 200 mg/dL meet the criteria for diagnosis of diabetes.Reference: Standards of Medical Care in Diabetes 2016, [place] [employer]. Diabetes Care. 2016.39(Suppl 1). Performed By: #### 2 4323-8 ####[facility] [id number] [address] [place] [address] [place] Potassium [Moles/Vol] 4.2 mmol/L Normal 3.7-5.1 [facility] Comment on above: Order Comment: Speci men Type: BLOOD SPECIMENOrdering Facility: [facility] Address: [address] [place] [address] Performed By: #### 2 4323-8 ####[facility] [id number] [address] [place] [address] [place] Protein [Mass/Vol] 5.2 g/dL Low 6.3-8.0 [facility] Comment on above: Order Comment: Speci men Type: BLOOD SPECIMENOrdering Facility: [facility] Address: [address] [place] [address] Performed By: #### 2 4323-8 ####[facility] LABIA [id number] [address] [place] [address] [place] Sodium [Moles/Vol] 135 mmol/L Low 136-144 [facility] Comment on above: Order Comment: Speci men Type: BLOOD SPECIMENOrdering Facility: [facility] Address: [address] [place] [address] Performed By: #### 2 4323-8 ####[facility] [id number] [address] [address] [place] Urea nitrogen [Mass/Vol] 21 mg/dL Normal 9-24 [facility] Comment on above: Order Comment: Speci men Type: BLOOD SPECIMENOrdering Facility: [facility] Address: [address] [place] [address] Performed By: #### 2 4323-8 ####[facility] [id number] [place] [address] [place] ECG COMPLETEon 12-27-2024 ECG COMPLETE Normal [facility] NUTRITIONon 12-27-2024 NUTRITION Normal [facility] PT panel Coag (PPP)on 2024 INR Coag (PPP) [Relative time] 1.5 {INR} High 0.9-1.3 [facility] Comment on above: Order Comment: Speci men Type: BLOOD SPECIMENOrdering Facility: [facility] Address: [address] [place] [address] Result Comment: Humaira min K Antagonist (VKA) Therapeutic Range: INR 2 to 3 (Target INR of 2.5)Note: For patients treated with VKA drugs, such as warfarin, the [place] [employer] 2012 Guideline recommends a therapeutic INR range of 2 to 3 (target INR of 2.5). This recommendation includes high-risk patients with antiphospholipid syndrome with previous arterial or venous thromboembolism, current-generation mechanical or bioprosthetic aortic heart valve replacement.Note: Patients with mechanical aortic valve replacement and additional risk factors for thromboembolic events (atrial fibrillation, previous thromboembolism, LV dysfunction, hypercoagulable conditions) or an older generation mechanical AVR (i.e., ball in-Cage) or any mechanical MVR should have a INR therapeutic range of 2.5 to 3.5 (target INR of 3).Delores GH, et al. Chest 2012, 141:7S-47SNishimaiden RA, et al. [facility] 2017, 70: 252-289 Performed By: #### 3 4528-0 ####[facility] LABIA [id number] [place] [id number] [place] PT Coag (PPP) [Time] 15.6 s High 9.7-13.0 [facility] Comment on above: Order Comment: Moses burton Type: BLOOD SPECIMENOrdering Facility: [facility] Address: [address] [place] [address] Performed By: #### 3 4528-0 ####[facility] LABIA [id number] [place] [id number] [place] THERAPY NTon 12-27-2024 THERAPY NT Normal [facility] THERAPY NT Normal [facility] XR CHEST 2V FRONTAL/LATon XR CHEST 2V FRONTAL/LAT Normal [facility] ARTERIAL BLOOD GASESon 12-26 Base excess Calc (Bld) [Moles/Vol] 1 mmol/L Normal 0-2 [facility] Comment on above: Order Comment: Speci men Type: ARTERIAL BLOOD SPECIMENOrdering Facility: [facility] Address: [address] [place] [address] Performed By: #### A LLBG ####[facility]IA [id number] [place] [address] [place] Body temperature 98.6 [degF] Normal [facility] Comment on above: Order Comment: Speci men Type: ARTERIAL BLOOD SPECIMENOrdering Facility: [facility] Address: [address] [place] [address] Performed By: #### A LLBG ####[facility]IA [id number] [place] [address] [place] Calcium.ionized (Bld) [Mass/Vol] 1.14 mmol/L Normal 1.08-1.30 [facility] Comment on above: Order Comment: Speci men Type: ARTERIAL BLOOD SPECIMENOrdering Facility: [facility] Address: [address] [place] [address] Performed By: #### A LLBG ####[facility] [id number] [place] [address] [place] Calcium.ionized adjusted to pH 7.4 (BldA) [Moles/Vol] 1.14 mmol/L Normal 1.08-1.30 [facility] Comment on above: Order Comment: Speci men Type: ARTERIAL BLOOD SPECIMENOrdering Facility: [facility] Address: [address] [place] [address] Performed By: #### A LLBG ####[facility] [id number] [place] [address] [place] Carboxyhemoglobin (BldA) [Mass fraction] 1.5 % Normal 0.0-2.0 [facility] Comment on above: Order Comment: Speci men Type: ARTERIAL BLOOD SPECIMENOrdering Facility: [facility] Address: [address] [place] [address] Result Comment: Carb oxyhemoglobin Reference Range for Smokers: 2.0-8.0% Performed By: #### A LLBG ####[facility] [id number] [place] [address] [place] CO2 (Bld) [Partial pressure] 44 mm Hg Normal 36-46 [facility] Comment on above: Order Comment: Speci men Type: ARTERIAL BLOOD SPECIMENOrdering Facility: [facility] Address: [address] [place] [address] Performed By: #### A LLBG ####[facility]IA [id number] [place] [address] [place] Glucose [Mass/Vol] 180 mg/dL High 60-105 [facility] Comment on above: Order Comment: Speci men Type: ARTERIAL BLOOD SPECIMENOrdering Facility: [facility] Address: [address] [place] [address] Performed By: #### A LLBG ####[facility] [id number] [place] [address] [place] HCO3 (Bld) [Moles/Vol] 26 mmol/L Normal 22-26 [facility] Comment on above: Order Comment: Speci men Type: ARTERIAL BLOOD SPECIMENOrdering Facility: [facility] Address: [address] [place] [address] Performed By: #### A LLBG ####[facility] [id number] [place] [address] [place] Hematocrit (Bld) [Volume fraction] 36.3 % Low 39.0-51.0 [facility] Comment on above: Order Comment: Speci men Type: ARTERIAL BLOOD SPECIMENOrdering Facility: [facility] Address: [address] [place] [address] Performed By: #### A LLBG ####[facility] [id number] [place] [address] [place] Hemoglobin (Bld) [Mass/Vol] 11.8 g/dL Low 13.0-17.0 [facility] Comment on above: Order Comment: Speci men Type: ARTERIAL BLOOD SPECIMENOrdering Facility: [facility] Address: [address] [place] [address] Performed By: #### A LLBG ####[facility] [id number] [place] [address] [place] Lactate [Moles/Vol] 1.2 mmol/L Normal 0.5-2.2 [facility] Comment on above: Order Comment: Speci men Type: ARTERIAL BLOOD SPECIMENOrdering Facility: [facility] Address: [address] [place] [address] Performed By: #### A LLBG ####[facility] [id number] [place] [address] [place] LITERS 4 Liters/min Normal [facility] Comment on above: Order Comment: Speci men Type: ARTERIAL BLOOD SPECIMENOrdering Facility: [facility] Address: [address] [place] [address] Performed By: #### A LLBG ####[facility] [id number] [place] [address] [place] Methemoglobin (Bld) [Mass fraction] 0.6 % Normal 0.0-1.5 [facility] Comment on above: Order Comment: Speci men Type: ARTERIAL BLOOD SPECIMENOrdering Facility: [facility] Address: [address] [place] [address] Performed By: #### A LLBG ####[facility]IA [id number] [place] [address] [place] O2 THERAPY NC = Nasal Cannula Normal [facility] Comment on above: Order Comment: Speci men Type: ARTERIAL BLOOD SPECIMENOrdering Facility: [facility] Address: [address] [place] [address] Performed By: #### A LLBG ####[facility] LABIA [id number] [place] [id number] [place] Oxygen (Bld) [Partial pressure] 83 mm Hg Low 85-95 [facility] Comment on above: Order Comment: Speci men Type: ARTERIAL BLOOD SPECIMENOrdering Facility: [facility] Address: [address] [place] [address] Performed By: #### A LLBG ####[facility]IA [id number] [place] [id number] [place] Oxyhemoglobin (BldA) [Mass fraction] 95 % Normal 95-98 [facility] Comment on above: Order Comment: Speci men Type: ARTERIAL BLOOD SPECIMENOrdering Facility: [facility] Address: [address] [place] [address] Performed By: #### A LLBG ####[facility]IA [id number] [place] [id number] [place] pH (Bld) 7.39 [pH] Normal 7.35-7.45 [facility] Comment on above: Order Comment: Speci men Type: ARTERIAL BLOOD SPECIMENOrdering Facility: [facility] Address: [address] [place] [address] Performed By: #### A LLBG ####[facility] [id number] [place] [id number] [place] Potassium [Moles/Vol] 4.0 mmol/L Normal 3.5-5.0 [facility] Comment on above: Order Comment: Speci men Type: ARTERIAL BLOOD SPECIMENOrdering Facility: [facility] Address: [address] [place] [address] Performed By: #### A LLBG ####[facility] [id number] [place] [address] [place] Sodium [Moles/Vol] 136 mmol/L Normal 136-144 [facility] Comment on above: Order Comment: Speci men Type: ARTERIAL BLOOD SPECIMENOrdering Facility: [facility] Address: [address] [place] [address] Performed By: #### A LLBG ####[facility] LABIA [id number] [place] [address] [place] Base excess Calc (Bld) [Moles/Vol] 0 mmol/L Normal 0-2 [facility] Comment on above: Order Comment: Speci men Type: ARTERIAL BLOOD SPECIMENOrdering Facility: [facility] Address: [address] [place] [address] Performed By: #### A LLBG ####[facility]IA [id number] [place] [address] [place] Body temperature 98.6 [degF] Normal [facility] Comment on above: Order Comment: Speci men Type: ARTERIAL BLOOD SPECIMENOrdering Facility: [facility] Address: [address] [place] [address] Performed By: #### A LLBG ####[facility]IA [id number] [place] [address] [place] Calcium.ionized (Bld) [Mass/Vol] 1.19 mmol/L Normal 1.08-1.30 [facility] Comment on above: Order Comment: Speci men Type: ARTERIAL BLOOD SPECIMENOrdering Facility: [facility] Address: [address] [place] [address] Performed By: #### A LLBG ####[facility] [id number] [place] [address] [place] Calcium.ionized adjusted to pH 7.4 (BldA) [Moles/Vol] 1.18 mmol/L Normal 1.08-1.30 [facility] Comment on above: Order Comment: Speci men Type: ARTERIAL BLOOD SPECIMENOrdering Facility: [facility] Address: [address] [place] [address] Performed By: #### A LLBG ####[facility] [id number] [place] [address] [place] Carboxyhemoglobin (BldA) [Mass fraction] 1.7 % Normal 0.0-2.0 [facility] Comment on above: Order Comment: Speci men Type: ARTERIAL BLOOD SPECIMENOrdering Facility: [facility] Address: [address] [place] [address] Result Comment: Carb oxyhemoglobin Reference Range for Smokers: 2.0-8.0% Performed By: #### A LLBG ####[facility] [id number] [place] [address] [place] CO2 (Bld) [Partial pressure] 44 mm Hg Normal 36-46 [facility] Comment on above: Order Comment: Speci men Type: ARTERIAL BLOOD SPECIMENOrdering Facility: [facility] Address: [address] [place] [address] Performed By: #### A LLBG ####[facility] [id number] [place] [id number] [place] Glucose [Mass/Vol] 186 mg/dL High 60-105 [facility] Comment on above: Order Comment: Speci men Type: ARTERIAL BLOOD SPECIMENOrdering Facility: [facility] Address: [address] [place] [address] Performed By: #### A LLBG ####[facility]IA [id number] [place] [id number] [address] [place] HCO3 (Bld) [Moles/Vol] 25 mmol/L Normal 22-26 [facility] Comment on above: Order Comment: Speci men Type: ARTERIAL BLOOD SPECIMENOrdering Facility: [facility] Address: [address] [place] [address] Performed By: #### A LLBG ####[facility] [id number] [place] [address] [place] Hematocrit (Bld) [Volume fraction] 35.1 % Low 39.0-51.0 [facility] Comment on above: Order Comment: Speci men Type: ARTERIAL BLOOD SPECIMENOrdering Facility: [facility] Address: [address] [place] [address] Performed By: #### A LLBG ####[facility] [id number] [place] [address] [place] Hemoglobin (Bld) [Mass/Vol] 11.4 g/dL Low 13.0-17.0 [facility] Comment on above: Order Comment: Speci men Type: ARTERIAL BLOOD SPECIMENOrdering Facility: [facility] Address: [address] [place] [address] Performed By: #### A LLBG ####[facility] [id number] [place] [address] [place] Lactate [Moles/Vol] 1.0 mmol/L Normal 0.5-2.2 [facility] Comment on above: Order Comment: Speci men Type: ARTERIAL BLOOD SPECIMENOrdering Facility: [facility] Address: [address] [place] [address] Performed By: #### A LLBG ####[facility] [id number] [place] [address] [place] LITERS 4 Liters/min Normal [facility] Comment on above: Order Comment: Speci men Type: ARTERIAL BLOOD SPECIMENOrdering Facility: [facility] Address: [address] [place] [address] Performed By: #### A LLBG ####[facility] [id number] [place] [id number] [place] Methemoglobin (Bld) [Mass fraction] 1.0 % Normal 0.0-1.5 [facility] Comment on above: Order Comment: Speci men Type: ARTERIAL BLOOD SPECIMENOrdering Facility: [facility] Address: [address] [place] [address] Performed By: #### A LLBG ####[facility] [id number] [place] [address] [place] O2 THERAPY NC = Nasal Cannula Normal [facility] Comment on above: Order Comment: Speci men Type: ARTERIAL BLOOD SPECIMENOrdering Facility: [facility] Address: [address] [place] [address] Performed By: #### A LLBG ####[facility] [id number] [place] [id number] [place] Oxygen (Bld) [Partial pressure] 88 mm Hg Normal 85-95 [facility] Comment on above: Order Comment: Speci men Type: ARTERIAL BLOOD SPECIMENOrdering Facility: [facility] Address: [address] [place] [address] Performed By: #### A LLBG ####[facility] [id number] [place] [id number] [place] Oxyhemoglobin (BldA) [Mass fraction] 95 % Normal 95-98 [facility] Comment on above: Order Comment: Speci men Type: ARTERIAL BLOOD SPECIMENOrdering Facility: [facility] Address: [address] [place] [address] Performed By: #### A LLBG ####[facility] [id number] [address] [address] [place] pH (Bld) 7.38 [pH] Normal 7.35-7.45 [facility] Comment on above: Order Comment: Speci men Type: ARTERIAL BLOOD SPECIMENOrdering Facility: [facility] Address: [address] [place] [address] Performed By: #### A LLBG ####[facility] [id number] [address] [address] [place] Potassium [Moles/Vol] 4.2 mmol/L Normal 3.5-5.0 [facility] Comment on above: Order Comment: Speci men Type: ARTERIAL BLOOD SPECIMENOrdering Facility: [facility] Address: [address] [place] [address] Performed By: #### A LLBG ####[facility] [id number] [place] [address] [place] Sodium [Moles/Vol] 140 mmol/L Normal 136-144 [facility] Comment on above: Order Comment: Speci men Type: ARTERIAL BLOOD SPECIMENOrdering Facility: [facility] Address: [address] [place] [address] Performed By: #### A LLBG ####[facility] [id number] [place] [address] [place] Base deficit (BldA) [Moles/Vol] -1 mmol/L Normal -2-0 [facility] Comment on above: Order Comment: Speci men Type: ARTERIAL BLOOD SPECIMENOrdering Facility: [facility] Address: [address] [place] [address] Performed By: #### A LLBG ####[facility] [id number] [place] [address] [place] Body temperature 98.6 [degF] Normal [facility] Comment on above: Order Comment: Speci men Type: ARTERIAL BLOOD SPECIMENOrdering Facility: [facility] Address: [address] [place] [address] Performed By: #### A LLBG ####[facility] [id number] [place] [address] [place] Calcium.ionized (Bld) [Mass/Vol] 1.15 mmol/L Normal 1.08-1.30 [facility] Comment on above: Order Comment: Speci men Type: ARTERIAL BLOOD SPECIMENOrdering Facility: [facility] Address: [address] [place] [address] Performed By: #### A LLBG ####[facility] [id number] [place] [address] [place] Calcium.ionized adjusted to pH 7.4 (BldA) [Moles/Vol] 1.13 mmol/L Normal 1.08-1.30 [facility] Comment on above: Order Comment: Speci men Type: ARTERIAL BLOOD SPECIMENOrdering Facility: [facility] Address: [address] [place] [address] Performed By: #### A LLBG ####[facility] [id number] [place] [address] [place] Carboxyhemoglobin (BldA) [Mass fraction] 1.7 % Normal 0.0-2.0 [facility] Comment on above: Order Comment: Speci men Type: ARTERIAL BLOOD SPECIMENOrdering Facility: [facility] Address: [address] [place] [address] Result Comment: Carb oxyhemoglobin Reference Range for Smokers: 2.0-8.0% Performed By: #### A LLBG ####[facility] [id number] [place] [address] [place] CO2 (Bld) [Partial pressure] 42 mm Hg Normal 36-46 [facility] Comment on above: Order Comment: Speci men Type: ARTERIAL BLOOD SPECIMENOrdering Facility: [facility] Address: [address] [place] [address] Performed By: #### A LLBG ####[facility] [id number] [place] [address] [place] Glucose [Mass/Vol] 194 mg/dL High 60-105 [facility] Comment on above: Order Comment: Speci men Type: ARTERIAL BLOOD SPECIMENOrdering Facility: [facility] Address: [address] [place] [address] Performed By: #### A LLBG ####[facility] [id number] [place] [address] [place] HCO3 (Bld) [Moles/Vol] 24 mmol/L Normal 22-26 [facility] Comment on above: Order Comment: Speci men Type: ARTERIAL BLOOD SPECIMENOrdering Facility: [facility] Address: [address] [place] [address] Performed By: #### A LLBG ####[facility] [id number] [place] [address] [place] Hematocrit (Bld) [Volume fraction] 35.9 % Low 39.0-51.0 [facility] Comment on above: Order Comment: Speci men Type: ARTERIAL BLOOD SPECIMENOrdering Facility: [facility] Address: [address] [place] [address] Performed By: #### A LLBG ####[facility] [id number] [place] [id number] [place] Hemoglobin (Bld) [Mass/Vol] 11.7 g/dL Low 13.0-17.0 [facility] Comment on above: Order Comment: Speci men Type: ARTERIAL BLOOD SPECIMENOrdering Facility: [facility] Address: [address] [place] [address] Performed By: #### A LLBG ####[facility] [id number] [place] [id number] [place] Lactate [Moles/Vol] 1.4 mmol/L Normal 0.5-2.2 [facility] Comment on above: Order Comment: Speci men Type: ARTERIAL BLOOD SPECIMENOrdering Facility: [facility] Address: [address] [place] [id number] Performed By: #### A LLBG ####[facility] [id number] [place] [id number] [place] LITERS 4 Liters/min Normal [facility] Comment on above: Order Comment: Speci men Type: ARTERIAL BLOOD SPECIMENOrdering Facility: [facility] Address: [address] [place] [address] Performed By: #### A LLBG ####[facility] [id number] [place] [id number] [place] Methemoglobin (Bld) [Mass fraction] 1.1 % Normal 0.0-1.5 [facility] Comment on above: Order Comment: Speci men Type: ARTERIAL BLOOD SPECIMENOrdering Facility: [facility] Address: [address] [place] [address] Performed By: #### A LLBG ####[facility] [id number] [place] [id number] [place] O2 THERAPY NC = Nasal Cannula Normal [facility] Comment on above: Order Comment: Speci men Type: ARTERIAL BLOOD SPECIMENOrdering Facility: [facility] Address: [address] [place], [place] [address] Performed By: #### A LLBG ####[facility] [id number] [place] [id number] [place] Oxygen (Bld) [Partial pressure] 100 mm Hg High 85-95 [facility] Comment on above: Order Comment: Speci men Type: ARTERIAL BLOOD SPECIMENOrdering Facility: [facility] Address: [address] [place], [place] [address] Performed By: #### A LLBG ####[facility] [id number] [address] [address] [place] Oxyhemoglobin (BldA) [Mass fraction] 96 % Normal 95-98 [facility] Comment on above: Order Comment: Speci men Type: ARTERIAL BLOOD SPECIMENOrdering Facility: [facility] Address: [address] [place] [address] Performed By: #### A LLBG ####[facility] [id number] [place] [id number] [place] pH (Bld) 7.36 [pH] Normal 7.35-7.45 [facility] Comment on above: Order Comment: Speci men Type: ARTERIAL BLOOD SPECIMENOrdering Facility: [facility] Address: [address] [place] [address] Performed By: #### A LLBG ####[facility] [id number] [place] [address] [place] Potassium [Moles/Vol] 4.4 mmol/L Normal 3.5-5.0 [facility] Comment on above: Order Comment: Speci men Type: ARTERIAL BLOOD SPECIMENOrdering Facility: [facility] Address: [address] [place] [address] Performed By: #### A LLBG ####[facility] [id number] [place] [address] [place] Sodium [Moles/Vol] 138 mmol/L Normal 136-144 [facility] Comment on above: Order Comment: Speci men Type: ARTERIAL BLOOD SPECIMENOrdering Facility: [facility] Address: [address] [place] [address] Performed By: #### A LLBG ####[facility] [id number] [place] [id number] [place] Base excess Calc (Bld) [Moles/Vol] 2 mmol/L Normal 0-2 [facility] Comment on above: Order Comment: Speci men Type: ARTERIAL BLOOD SPECIMENOrdering Facility: [facility] Address: [address] [place] [address] Performed By: #### A LLBG ####[facility] [id number] [place] [address] [place] Body temperature 98.6 [degF] Normal [facility] Comment on above: Order Comment: Speci men Type: ARTERIAL BLOOD SPECIMENOrdering Facility: [facility] Address: [address] [place] [address] Performed By: #### A LLBG ####[facility] [id number] [place] [address] [place] Calcium.ionized (Bld) [Mass/Vol] 1.22 mmol/L Normal 1.08-1.30 [facility] Comment on above: Order Comment: Speci men Type: ARTERIAL BLOOD SPECIMENOrdering Facility: [facility] Address: [address] [place] [address] Performed By: #### A LLBG ####[facility] [id number] [place] [address] [place] Calcium.ionized adjusted to pH 7.4 (BldA) [Moles/Vol] 1.21 mmol/L Normal 1.08-1.30 [facility] Comment on above: Order Comment: Speci men Type: ARTERIAL BLOOD SPECIMENOrdering Facility: [facility] Address: [address] [place] [address] Performed By: #### A LLBG ####[facility] [id number] [place] [address] [place] Carboxyhemoglobin (BldA) [Mass fraction] 1.4 % Normal 0.0-2.0 [facility] Comment on above: Order Comment: Speci men Type: ARTERIAL BLOOD SPECIMENOrdering Facility: [facility] Address: [address] [place] [address] Result Comment: Carb oxyhemoglobin Reference Range for Smokers: 2.0-8.0% Performed By: #### A LLBG ####[facility] [id number] [address] [address] [place] CO2 (Bld) [Partial pressure] 47 mm Hg High 36-46 [facility] Comment on above: Order Comment: Speci men Type: ARTERIAL BLOOD SPECIMENOrdering Facility: [facility] Address: [address] [place] [address] Performed By: #### A LLBG ####[facility] [id number] [place] [id number] [place] Glucose [Mass/Vol] 118 mg/dL High 60-105 [facility] Comment on above: Order Comment: Speci men Type: ARTERIAL BLOOD SPECIMENOrdering Facility: [facility] Address: [address] [place] [address] Performed By: #### A LLBG ####[facility] [id number] [place] [id number] [place] HCO3 (Bld) [Moles/Vol] 27 mmol/L High 22-26 [facility] Comment on above: Order Comment: Speci men Type: ARTERIAL BLOOD SPECIMENOrdering Facility: [facility] Address: [address] [place] [address] Performed By: #### A LLBG ####[facility] [id number] [place] [id number] [place] Hematocrit (Bld) [Volume fraction] 34.5 % Low 39.0-51.0 [facility] Comment on above: Order Comment: Speci men Type: ARTERIAL BLOOD SPECIMENOrdering Facility: [facility] Address: [address] [place] [address] Performed By: #### A LLBG ####[facility] [id number] [place] [id number] [place] Hemoglobin (Bld) [Mass/Vol] 11.2 g/dL Low 13.0-17.0 [facility] Comment on above: Order Comment: Speci men Type: ARTERIAL BLOOD SPECIMENOrdering Facility: [facility] Address: [address] [place] [address] Performed By: #### A LLBG ####[facility] [id number] [place] [id number] [place] Lactate [Moles/Vol] 1.1 mmol/L Normal 0.5-2.2 [facility] Comment on above: Order Comment: Speci men Type: ARTERIAL BLOOD SPECIMENOrdering Facility: [facility] Address: [address] [place] [address] Performed By: #### A LLBG ####[facility] LABIA [id number] [place] [address] [place] LITERS 4 Liters/min Normal [facility] Comment on above: Order Comment: Speci men Type: ARTERIAL BLOOD SPECIMENOrdering Facility: [facility] Address: [address] [place] [address] Performed By: #### A LLBG ####[facility] LABIA [id number] [place] [address] [place] Methemoglobin (Bld) [Mass fraction] 1.0 % Normal 0.0-1.5 [facility] Comment on above: Order Comment: Speci men Type: ARTERIAL BLOOD SPECIMENOrdering Facility: [facility] Address: [address] [place] [address] Performed By: #### A LLBG ####[facility] [id number] [place] [id number] [place] O2 THERAPY NC = Nasal Cannula Normal [facility] Comment on above: Order Comment: Speci men Type: ARTERIAL BLOOD SPECIMENOrdering Facility: [facility] Address: [address] [place] [address] Performed By: #### A LLBG ####[facility] [id number] [place] [id number] [place] Oxygen (Bld) [Partial pressure] 82 mm Hg Low 85-95 [facility] Comment on above: Order Comment: Speci men Type: ARTERIAL BLOOD SPECIMENOrdering Facility: [facility] Address: [address] [place] [address] Performed By: #### A LLBG ####[facility] [id number] [address] [address] [place] Oxyhemoglobin (BldA) [Mass fraction] 94 % Low 95-98 [facility] Comment on above: Order Comment: Speci men Type: ARTERIAL BLOOD SPECIMENOrdering Facility: [facility] Address: [address] [place] [address] Performed By: #### A LLBG ####[facility] [id number] [place] [address] [place] pH (Bld) 7.38 [pH] Normal 7.35-7.45 [facility] Comment on above: Order Comment: Speci men Type: ARTERIAL BLOOD SPECIMENOrdering Facility: [facility] Address: [address] [place] [address] Performed By: #### A LLBG ####[facility] [id number] [place] [address] [place] Potassium [Moles/Vol] 4.1 mmol/L Normal 3.5-5.0 [facility] Comment on above: Order Comment: Speci men Type: ARTERIAL BLOOD SPECIMENOrdering Facility: [facility] Address: [address] [place] [address] Performed By: #### A LLBG ####[facility] [id number] [place] [id number] [place] Sodium [Moles/Vol] 139 mmol/L Normal 136-144 [facility] Comment on above: Order Comment: Speci men Type: ARTERIAL BLOOD SPECIMENOrdering Facility: [facility] Address: [address] [place] [address] Performed By: #### A LLBG ####[facility] [id number] [address] [address] [place] CASE MGT INIT ASSESon 2024 CASE MGT INIT ASSES Normal [facility] CBC panel Auto (Bld)on 12-26 Erythrocyte distribution width (RBC) [Ratio] 12.7 % Normal 11.5-15.0 [facility] Comment on above: Order Comment: Speci men Type: BLOOD SPECIMENOrdering Facility: [facility] Address: [address] [place] [address] Performed By: #### 5 8410-2 ####[facility] [id number] [place] [address] [place] Hematocrit (Bld) [Volume fraction] 32.5 % Low 39.0-51.0 [facility] Comment on above: Order Comment: Speci men Type: BLOOD SPECIMENOrdering Facility: [facility] Address: [address] [place] [address] Performed By: #### 5 8410-2 ####[facility] [id number] [place] [address] [place] Hemoglobin (Bld) [Mass/Vol] 11.2 g/dL Low 13.0-17.0 [facility] Comment on above: Order Comment: Speci men Type: BLOOD SPECIMENOrdering Facility: [facility] Address: [address] [place] [address] Performed By: #### 5 8410-2 ####[facility] [id number] [place] [id number] [place] MCH (RBC) [Entitic mass] 30.7 pg Normal 26.0-34.0 [facility] Comment on above: Order Comment: Speci men Type: BLOOD SPECIMENOrdering Facility: [facility] Address: [address] [place] [address] Performed By: #### 5 8410-2 ####[facility] [id number] [place] [address] [place] MCHC (RBC) [Mass/Vol] 34.5 g/dL Normal 30.5-36.0 [facility] Comment on above: Order Comment: Speci men Type: BLOOD SPECIMENOrdering Facility: [facility] Address: [address] [place] [address] Performed By: #### 5 8410-2 ####[facility] LABIA [id number] [place] [address] [place] MCV (RBC) [Entitic vol] 89.0 fL Normal 80.0-100.0 [facility] Comment on above: Order Comment: Speci men Type: BLOOD SPECIMENOrdering Facility: [facility] Address: [address] [place] [address] Performed By: #### 5 8410-2 ####[facility] [id number] [place] [address] [place] Nucleated RBC (Bld) [#/Vol] 10*3/uL Normal <0.01 [facility] Comment on above: Order Comment: Speci men Type: BLOOD SPECIMENOrdering Facility: [facility] Address: [address] [place] [address] Performed By: #### 5 8410-2 ####[facility] LABIA [id number] [place] [address] [place] Platelet mean volume (Bld) [Entitic vol] 10.6 fL Normal 9.0-12.7 [facility] Comment on above: Order Comment: Speci men Type: BLOOD SPECIMENOrdering Facility: [facility] Address: [address] [place] [address] Performed By: #### 5 8410-2 ####[facility] [id number] [place] [address] [place] Platelets (Bld) [#/Vol] 136 10*3/uL Low 150-400 [facility] Comment on above: Order Comment: Speci men Type: BLOOD SPECIMENOrdering Facility: [facility] Address: [address] [place] [address] Performed By: #### 5 8410-2 ####[facility] [id number] [address] [address] [place] RBC (Bld) [#/Vol] 3.65 10*6/uL Low 4.20-6.00 [facility] Comment on above: Order Comment: Speci men Type: BLOOD SPECIMENOrdering Facility: [facility] Address: [address] [place] [address] Performed By: #### 5 8410-2 ####[facility] [id number] [place] [address] [place] WBC (Bld) [#/Vol] 11.24 10*3/uL High 3.70-11.00 [facility] Comment on above: Order Comment: Speci men Type: BLOOD SPECIMENOrdering Facility: [facility] Address: [address] [place] [address] Performed By: #### 5 8410-2 ####[facility] [id number] [place] [id number] [place] CONSULTon 12-26-2024 CONSULT Normal [facility] Comprehensive metabolic 2000 panelon 12-26-2024 Albumin [Mass/Vol] 3.4 g/dL Low 3.9-4.9 [facility] Comment on above: Order Comment: Speci men Type: BLOOD SPECIMENOrdering Facility: [facility] Address: [address] [place] [address] Performed By: #### H STNT, 64344-8 ####[facility] [id number] [place] [id number] [place] ALP [Catalytic activity/Vol] 56 U/L Normal 38-113 [facility] Comment on above: Order Comment: Speci men Type: BLOOD SPECIMENOrdering Facility: [facility] Address: [address] [place] [address] Performed By: #### H STNT, 03736-0 ####[facility] [id number] [place] [address] [place] ALT [Catalytic activity/Vol] 39 U/L Normal 10-54 [facility] Comment on above: Order Comment: Speci men Type: BLOOD SPECIMENOrdering Facility: [facility] Address: [address] [place] [address] Performed By: #### H STNT, ####[facility] [id number] [place] [address] [place] Anion gap [Moles/Vol] 9 mmol/L Normal 8-15 [facility] Comment on above: Order Comment: Speci men Type: BLOOD SPECIMENOrdering Facility: [facility] Address: [address] [place] [address] Performed By: #### H STNT, 84768-6 ####[facility] [id number] [place] [address] [place] AST [Catalytic activity/Vol] 120 U/L High 14-40 [facility] Comment on above: Order Comment: Speci men Type: BLOOD SPECIMENOrdering Facility: [facility] Address: [address] [place] [address] Performed By: #### H STNT, ####[facility] [id number] [place] [id number] [place] Bilirubin [Mass/Vol] 0.7 mg/dL Normal 0.2-1.3 [facility] Comment on above: Order Comment: Speci men Type: BLOOD SPECIMENOrdering Facility: [facility] Address: [address] [place] [address] Performed By: #### H STNT, ####[facility] [id number] [facility] [address] [place] [address] [place] Calcium [Mass/Vol] 8.1 mg/dL Low 8.5-10.2 [facility] Comment on above: Order Comment: Speci men Type: BLOOD SPECIMENOrdering Facility: [facility] Address: [address] [place] [address] Performed By: #### H STNT, ####[facility] [id number] [place] [id number] [place] Chloride [Moles/Vol] 107 mmol/L Normal 98-107 [facility] Comment on above: Order Comment: Speci men Type: BLOOD SPECIMENOrdering Facility: [facility] Address: [address] [place] [address] Performed By: #### H STNT, ####[facility] [id number] [place] [address] [place] CO2 [Moles/Vol] 24 mmol/L Normal 22-30 [facility] Comment on above: Order Comment: Speci men Type: BLOOD SPECIMENOrdering Facility: [facility] Address: [address] [place] [address] Performed By: #### H STNT, ####[facility] [id number] [place] [id number] [place] Creatinine [Mass/Vol] 0.95 mg/dL Normal 0.73-1.22 [facility] Comment on above: Order Comment: Speci men Type: BLOOD SPECIMENOrdering Facility: [facility] Address: [address] [place] [address] Performed By: #### H STNT, 67604-2 ####[facility] [id number] [place] [id number] [place] Creatinine and Glomerular filtration rate.predicted panel (S/P/Bld) 101 mL/min/1.73m??? Normal >=60 [facility] Comment on above: Order Comment: Moses burton Type: BLOOD SPECIMENOrdering Facility: [facility] Address: [address] [place] [address] Result Comment: Rosanna mated Glomerular Filtration Rate (eGFR) is calculated using the 2020 CKD-EPI creatinine equation. This equation utilizes serum creatinine, sex, and age as parameters. The creatinine assay has traceable calibration to isotope dilution-mass spectrometry. Refer to KDIGO guidelines for clinical interpretation. In patients with unstable renal function, e.g. those with acute kidney injury, the eGFR may not accurately reflect actual GFR. Performed By: #### H LARISSA, 09325-4 ####[facility] [id number] [place] [address] [place] Glucose [Mass/Vol] 150 mg/dL High 74-99 [facility] Comment on above: Order Comment: Moses burton Type: BLOOD SPECIMENOrdering Facility: [facility] Address: [address] [place] [address] Result Comment: The [place] [employer] (ADA) provides guidance for cutoff values for fasting glucose and random glucose. The ADA defines fasting as no caloric intake for at least 8 hours. Fasting plasma glucose results between 100 to 125 mg/dL indicate increased risk for diabetes (prediabetes).Fasting plasma glucose results greater than or equal to 126 mg/dL meet the criteria for diagnosis of diabetes. In the absence of unequivocal hyperglycemia, results should be confirmed by repeat testing. In a patient with classic symptoms of hyperglycemia or hyperglycemic crisis, random plasma glucose results greater than or equal to 200 mg/dL meet the criteria for diagnosis of diabetes.Reference: Standards of Medical Care in Diabetes 2016, [place] [employer]. Diabetes Care. 2016.39(Suppl 1). Performed By: #### H STNT, 63981-8 ####[facility] [id number] [place] [id number] [place] Potassium [Moles/Vol] 4.4 mmol/L Normal 3.7-5.1 [facility] Comment on above: Order Comment: Speci men Type: BLOOD SPECIMENOrdering Facility: [facility] Address: [address] [place] [address] Performed By: #### H STNT, ####[facility] [id number] [address] [address] [place] Protein [Mass/Vol] 5.2 g/dL Low 6.3-8.0 [facility] Comment on above: Order Comment: Speci men Type: BLOOD SPECIMENOrdering Facility: [facility] Address: [address] [place] [address] Performed By: #### H STNT, ####[facility] [id number] [place] [id number] [place] Sodium [Moles/Vol] 140 mmol/L Normal 136-144 [facility] Comment on above: Order Comment: Speci men Type: BLOOD SPECIMENOrdering Facility: [facility] Address: [address] [place] [address] Performed By: #### H STNT, ####[facility] [id number] [place] [address] [place] Urea nitrogen [Mass/Vol] 19 mg/dL Normal 9-24 [facility] Comment on above: Order Comment: Speci men Type: BLOOD SPECIMENOrdering Facility: [facility] Address: [address] [place] [address] Performed By: #### H STNT, ####[facility] [id number] [place] [id number] [place] HIGH SENSITIVITY TROPONIN To n 12-26-2024 Troponin T.cardiac High sensitivity method [Mass/Vol] 242 ng/L High <12 [facility] Comment on above: Order Comment: Speci men Type: BLOOD SPECIMENOrdering Facility: [facility] Address: [address] [place] [address] Performed By: #### H STNT, 49657-8 ####[facility] [id number] [place] [address] [place] PT panel Coag (PPP)on 2024 INR Coag (PPP) [Relative time] 1.2 {INR} Normal 0.9-1.3 [facility] Comment on above: Order Comment: Speci men Type: BLOOD SPECIMENOrdering Facility: [facility] Address: [address] [place] [address] Result Comment: Humaira min K Antagonist (VKA) Therapeutic Range: INR 2 to 3 (Target INR of 2.5)Note: For patients treated with VKA drugs, such as warfarin, the [place] [employer] 2012 Guideline recommends a therapeutic INR range of 2 to 3 (target INR of 2.5). This recommendation includes high-risk patients with antiphospholipid syndrome with previous arterial or venous thromboembolism, current-generation mechanical or bioprosthetic aortic heart valve replacement.Note: Patients with mechanical aortic valve replacement and additional risk factors for thromboembolic events (atrial fibrillation, previous thromboembolism, LV dysfunction, hypercoagulable conditions) or an older generation mechanical AVR (i.e., ball in-Cage) or any mechanical MVR should have a INR therapeutic range of 2.5 to 3.5 (target INR of 3).Delores GH, et al. Chest 2012, 141:7S-47SCinda RA, et al. [facility] 2017, 70: 252-289 Performed By: #### 3 4528-0 ####[facility] [id number] [place] [id number] [place] PT Coag (PPP) [Time] 12.4 s Normal 9.7-13.0 [facility] Comment on above: Order Comment: Speci men Type: BLOOD SPECIMENOrdering Facility: [facility] Address: [address] [place] [address] Performed By: #### 3 4528-0 ####[facility] LABCL[facility] [id number] [place] [id number] [place] XR CHEST 1V FRONTAL PORTon 0 12-26-2024 XR CHEST 1V FRONTAL PORT Normal [facility] ANES POSTPROC EVALon 12-25- 025 ANES POSTPROC EVAL Normal [facility] ANES PRE-OPon 12-25-2024 ANES PRE-OP Normal [facility] ARTERIAL BLOOD GASESon 12-25 Base excess Calc (Bld) [Moles/Vol] 1 mmol/L Normal 0-2 [facility] Comment on above: Order Comment: Speci men Type: ARTERIAL BLOOD SPECIMENOrdering Facility: [facility] Address: [address] [place] [address] Performed By: #### A LLBG ####[facility]CL[facility] [id number] [place] [address] [place] Body temperature 98.6 [degF] Normal [facility] Comment on above: Order Comment: Speci men Type: ARTERIAL BLOOD SPECIMENOrdering Facility: [facility] Address: [address] [place] [address] Performed By: #### A LLBG ####[facility] [id number] [place] [address] [place] Calcium.ionized (Bld) [Mass/Vol] 1.19 mmol/L Normal 1.08-1.30 [facility] Comment on above: Order Comment: Speci men Type: ARTERIAL BLOOD SPECIMENOrdering Facility: [facility] Address: [address] [place] [address] Performed By: #### A LLBG ####[facility]CL[facility] [id number] [place] [address] [place] Calcium.ionized adjusted to pH 7.4 (BldA) [Moles/Vol] 1.17 mmol/L Normal 1.08-1.30 [facility] Comment on above: Order Comment: Speci men Type: ARTERIAL BLOOD SPECIMENOrdering Facility: [facility] Address: [address] [place] [address] Performed By: #### A LLBG ####[facility] [id number] [place] [address] [place] Carboxyhemoglobin (BldA) [Mass fraction] 1.4 % Normal 0.0-2.0 [facility] Comment on above: Order Comment: Speci men Type: ARTERIAL BLOOD SPECIMENOrdering Facility: [facility] Address: [address] [place] [address] Result Comment: Carb oxyhemoglobin Reference Range for Smokers: 2.0-8.0% Performed By: #### A LLBG ####[facility]CL[facility] [id number] [place] [address] [place] CO2 (Bld) [Partial pressure] 46 mm Hg Normal 36-46 [facility] Comment on above: Order Comment: Speci men Type: ARTERIAL BLOOD SPECIMENOrdering Facility: [facility] Address: [address] [place] [address] Performed By: #### A LLBG ####[facility] [id number] [place] [address] [place] Glucose [Mass/Vol] 171 mg/dL High 60-105 [facility] Comment on above: Order Comment: Speci men Type: ARTERIAL BLOOD SPECIMENOrdering Facility: [facility] Address: [address] [place] [address] Performed By: #### A LLBG ####[facility] [id number] [place] [id number] [place] HCO3 (Bld) [Moles/Vol] 26 mmol/L Normal 22-26 [facility] Comment on above: Order Comment: Speci men Type: ARTERIAL BLOOD SPECIMENOrdering Facility: [facility] Address: [address] [place] [address] Performed By: #### A LLBG ####[facility]CL[facility] [id number] [place] [address] [place] Hematocrit (Bld) [Volume fraction] 34.6 % Low 39.0-51.0 [facility] Comment on above: Order Comment: Speci men Type: ARTERIAL BLOOD SPECIMENOrdering Facility: [facility] Address: [address] [place] [address] Performed By: #### A LLBG ####[facility] [id number] [place] [address] [place] Hemoglobin (Bld) [Mass/Vol] 11.2 g/dL Low 13.0-17.0 [facility] Comment on above: Order Comment: Speci men Type: ARTERIAL BLOOD SPECIMENOrdering Facility: [facility] Address: [address] [place] [address] Performed By: #### A LLBG ####[facility] [id number] [place] [address] [place] Lactate [Moles/Vol] 1.2 mmol/L Normal 0.5-2.2 [facility] Comment on above: Order Comment: Speci men Type: ARTERIAL BLOOD SPECIMENOrdering Facility: [facility] Address: [address] [place] [address] Performed By: #### A LLBG ####[facility] [id number] [place] [address] [place] LITERS 4 Liters/min Normal [facility] Comment on above: Order Comment: Speci men Type: ARTERIAL BLOOD SPECIMENOrdering Facility: [facility] Address: [address] [place] [address] Performed By: #### A LLBG ####[facility] [id number] [place] [id number] [place] Methemoglobin (Bld) [Mass fraction] 0.7 % Normal 0.0-1.5 [facility] Comment on above: Order Comment: Speci men Type: ARTERIAL BLOOD SPECIMENOrdering Facility: [facility] Address: [address] [place] [address] Performed By: #### A LLBG ####[facility] [id number] [place] [address] [place] O2 THERAPY NC = Nasal Cannula Normal [facility] Comment on above: Order Comment: Speci men Type: ARTERIAL BLOOD SPECIMENOrdering Facility: [facility] Address: [address] [place] [address] Performed By: #### A LLBG ####[facility] [id number] [place] [address] [place] Oxygen (Bld) [Partial pressure] 117 mm Hg High 85-95 [facility] Comment on above: Order Comment: Speci men Type: ARTERIAL BLOOD SPECIMENOrdering Facility: [facility] Address: [address] [place] [address] Performed By: #### A LLBG ####[facility] [id number] [place] [address] [place] Oxyhemoglobin (BldA) [Mass fraction] 97 % Normal 95-98 [facility] Comment on above: Order Comment: Speci men Type: ARTERIAL BLOOD SPECIMENOrdering Facility: [facility] Address: [address] [place] [address] Performed By: #### A LLBG ####[facility] LABIA [id number] [place] [address] [place] pH (Bld) 7.38 [pH] Normal 7.35-7.45 [facility] Comment on above: Order Comment: Speci men Type: ARTERIAL BLOOD SPECIMENOrdering Facility: [facility] Address: [address] [place] [address] Performed By: #### A LLBG ####[facility] [id number] [place] [id number] [place] Potassium [Moles/Vol] 4.2 mmol/L Normal 3.5-5.0 [facility] Comment on above: Order Comment: Speci men Type: ARTERIAL BLOOD SPECIMENOrdering Facility: [facility] Address: [address] [place] [address] Performed By: #### A LLBG ####[facility] [id number] [place] [id number] [place] Sodium [Moles/Vol] 139 mmol/L Normal 136-144 [facility] Comment on above: Order Comment: Speci men Type: ARTERIAL BLOOD SPECIMENOrdering Facility: [facility] Address: [address] [place] [address] Performed By: #### A LLBG ####[facility] [id number] [place] [address] [place] Base excess Calc (Bld) [Moles/Vol] 0 mmol/L Normal 0-2 [facility] Comment on above: Order Comment: Speci men Type: ARTERIAL BLOOD SPECIMENOrdering Facility: [facility] Address: [address] [place] [address] Performed By: #### A LLBG ####[facility] [id number] [place] [address] [place] Body temperature 98.6 [degF] Normal [facility] Comment on above: Order Comment: Speci men Type: ARTERIAL BLOOD SPECIMENOrdering Facility: [facility] Address: [address] [place] [address] Performed By: #### A LLBG ####[facility] [id number] [place] [address] [place] Calcium.ionized (Bld) [Mass/Vol] 1.17 mmol/L Normal 1.08-1.30 [facility] Comment on above: Order Comment: Speci men Type: ARTERIAL BLOOD SPECIMENOrdering Facility: [facility] Address: [address] [place] [address] Performed By: #### A LLBG ####[facility] [id number] [place] [address] [place] Calcium.ionized adjusted to pH 7.4 (BldA) [Moles/Vol] 1.15 mmol/L Normal 1.08-1.30 [facility] Comment on above: Order Comment: Speci men Type: ARTERIAL BLOOD SPECIMENOrdering Facility: [facility] Address: [address] [place] [address] Performed By: #### A LLBG ####[facility] [id number] [place] [address] [place] Carboxyhemoglobin (BldA) [Mass fraction] 1.9 % Normal 0.0-2.0 [facility] Comment on above: Order Comment: Speci men Type: ARTERIAL BLOOD SPECIMENOrdering Facility: [facility] Address: [address] [place] [address] Result Comment: Carb oxyhemoglobin Reference Range for Smokers: 2.0-8.0% Performed By: #### A LLBG ####[facility] [id number] [place] [address] [place] CO2 (Bld) [Partial pressure] 44 mm Hg Normal 36-46 [facility] Comment on above: Order Comment: Speci men Type: ARTERIAL BLOOD SPECIMENOrdering Facility: [facility] Address: [address] [place] [address] Performed By: #### A LLBG ####[facility] LABIA [id number] [place] [address] [place] Glucose [Mass/Vol] 223 mg/dL High 60-105 [facility] Comment on above: Order Comment: Speci men Type: ARTERIAL BLOOD SPECIMENOrdering Facility: [facility] Address: [address] [place] [address] Performed By: #### A LLBG ####[facility] [id number] [place] [address] [place] HCO3 (Bld) [Moles/Vol] 25 mmol/L Normal 22-26 [facility] Comment on above: Order Comment: Speci men Type: ARTERIAL BLOOD SPECIMENOrdering Facility: [facility] Address: [address] [place] [address] Performed By: #### A LLBG ####[facility]CL[facility] [id number] [place] [address] [place] Hematocrit (Bld) [Volume fraction] 35.7 % Low 39.0-51.0 [facility] Comment on above: Order Comment: Speci men Type: ARTERIAL BLOOD SPECIMENOrdering Facility: [facility] Address: [address] [place] [address] Performed By: #### A LLBG ####[facility] LABIA [id number] [place] [address] [place] Hemoglobin (Bld) [Mass/Vol] 11.6 g/dL Low 13.0-17.0 [facility] Comment on above: Order Comment: Speci men Type: ARTERIAL BLOOD SPECIMENOrdering Facility: [facility] Address: [address] [place] [address] Performed By: #### A LLBG ####[facility] LABIA [id number] [place] [address] [place] Lactate [Moles/Vol] 1.2 mmol/L Normal 0.5-2.2 [facility] Comment on above: Order Comment: Speci men Type: ARTERIAL BLOOD SPECIMENOrdering Facility: [facility] Address: [address] [place] [address] Performed By: #### A LLBG ####[facility] LABIA [id number] [place] [address] [place] LITERS 4 Liters/min Normal [facility] Comment on above: Order Comment: Speci men Type: ARTERIAL BLOOD SPECIMENOrdering Facility: [facility] Address: [address], [place] [address] Performed By: #### A LLBG ####[facility] [id number] [address] [address] [place] Methemoglobin (Bld) [Mass fraction] 1.1 % Normal 0.0-1.5 [facility] Comment on above: Order Comment: Speci men Type: ARTERIAL BLOOD SPECIMENOrdering Facility: [facility] Address: [address] [place] [address] Performed By: #### A LLBG ####[facility] [id number] [address] [address] [place] O2 THERAPY NC = Nasal Cannula Normal [facility] Comment on above: Order Comment: Speci men Type: ARTERIAL BLOOD SPECIMENOrdering Facility: [facility] Address: [address] [place] [address] Performed By: #### A LLBG ####[facility] LABIA [id number] [place] [id number] [place] Oxygen (Bld) [Partial pressure] 126 mm Hg High 85-95 [facility] Comment on above: Order Comment: Speci men Type: ARTERIAL BLOOD SPECIMENOrdering Facility: [facility] Address: [address] [place] [address] Performed By: #### A LLBG ####[facility] LABIA [id number] [place] [id number] [place] Oxyhemoglobin (BldA) [Mass fraction] 96 % Normal 95-98 [facility] Comment on above: Order Comment: Speci men Type: ARTERIAL BLOOD SPECIMENOrdering Facility: [facility] Address: [address] [place], [place] [address] Performed By: #### A LLBG ####[facility] [id number] [address] [address] [place] pH (Bld) 7.37 [pH] Normal 7.35-7.45 [facility] Comment on above: Order Comment: Speci men Type: ARTERIAL BLOOD SPECIMENOrdering Facility: [facility] Address: [address] [place] [id number] Performed By: #### A LLBG ####[facility] [id number] [address] [address] [place] Potassium [Moles/Vol] 4.3 mmol/L Normal 3.5-5.0 [facility] Comment on above: Order Comment: Speci men Type: ARTERIAL BLOOD SPECIMENOrdering Facility: [facility] Address: [address] [place], [place] [address] Performed By: #### A LLBG ####[facility] [id number] [place] [id number] [place] Sodium [Moles/Vol] 138 mmol/L Normal 136-144 [facility] Comment on above: Order Comment: Speci men Type: ARTERIAL BLOOD SPECIMENOrdering Facility: [facility] Address: [address] [place], [place] [address] Performed By: #### A LLBG ####[facility] [id number] [place] [id number] [place] Base excess Calc (Bld) [Moles/Vol] 0 mmol/L Normal 0-2 [facility] Comment on above: Order Comment: Speci men Type: ARTERIAL BLOOD SPECIMENOrdering Facility: [facility] Address: [address] [place], [place] [address] Performed By: #### A LLBG ####[facility] [id number] [address] [address] [place] Body temperature 98.6 [degF] Normal [facility] Comment on above: Order Comment: Speci men Type: ARTERIAL BLOOD SPECIMENOrdering Facility: [facility] Address: [address] [place], [place] [address] Performed By: #### A LLBG ####[facility] [id number] [place] [address] [place] Calcium.ionized (Bld) [Mass/Vol] 1.16 mmol/L Normal 1.08-1.30 [facility] Comment on above: Order Comment: Speci men Type: ARTERIAL BLOOD SPECIMENOrdering Facility: [facility] Address: [address] [place] [address] Performed By: #### A LLBG ####[facility] [id number] [place] [address] [place] Calcium.ionized adjusted to pH 7.4 (BldA) [Moles/Vol] 1.14 mmol/L Normal 1.08-1.30 [facility] Comment on above: Order Comment: Speci men Type: ARTERIAL BLOOD SPECIMENOrdering Facility: [facility] Address: [address] [place] [address] Performed By: #### A LLBG ####[facility] [id number] [place] [address] [place] Carboxyhemoglobin (BldA) [Mass fraction] 1.7 % Normal 0.0-2.0 [facility] Comment on above: Order Comment: Speci men Type: ARTERIAL BLOOD SPECIMENOrdering Facility: [facility] Address: [address] [place] [address] Result Comment: Carb oxyhemoglobin Reference Range for Smokers: 2.0-8.0% Performed By: #### A LLBG ####[facility] [id number] [place] [address] [place] CO2 (Bld) [Partial pressure] 44 mm Hg Normal 36-46 [facility] Comment on above: Order Comment: Speci men Type: ARTERIAL BLOOD SPECIMENOrdering Facility: [facility] Address: [address] [place] [address] Performed By: #### A LLBG ####[facility]CL[facility] [id number] [address] [id number] [address] [place] Glucose [Mass/Vol] 209 mg/dL High 60-105 [facility] Comment on above: Order Comment: Speci men Type: ARTERIAL BLOOD SPECIMENOrdering Facility: [facility] Address: [address] [place] [address] Performed By: #### A LLBG ####[facility] [id number] [place] [id number] [place] HCO3 (Bld) [Moles/Vol] 25 mmol/L Normal 22-26 [facility] Comment on above: Order Comment: Speci men Type: ARTERIAL BLOOD SPECIMENOrdering Facility: [facility] Address: [address] [place] [address] Performed By: #### A LLBG ####[facility] [id number] [place] [address] [place] Hematocrit (Bld) [Volume fraction] 36.2 % Low 39.0-51.0 [facility] Comment on above: Order Comment: Speci men Type: ARTERIAL BLOOD SPECIMENOrdering Facility: [facility] Address: [address] [place] [address] Performed By: #### A LLBG ####[facility] [id number] [place] [address] [place] Hemoglobin (Bld) [Mass/Vol] 11.8 g/dL Low 13.0-17.0 [facility] Comment on above: Order Comment: Speci men Type: ARTERIAL BLOOD SPECIMENOrdering Facility: [facility] Address: [address] [place] [address] Performed By: #### A LLBG ####[facility] [id number] [place] [id number] [place] Lactate [Moles/Vol] 1.2 mmol/L Normal 0.5-2.2 [facility] Comment on above: Order Comment: Speci men Type: ARTERIAL BLOOD SPECIMENOrdering Facility: [facility] Address: [address] [place] [id number] Performed By: #### A LLBG ####[facility] [id number] [address] [address] [place] LITERS 2 Liters/min Normal [facility] Comment on above: Order Comment: Speci men Type: ARTERIAL BLOOD SPECIMENOrdering Facility: [facility] Address: [address] [place], [place] [address] Performed By: #### A LLBG ####[facility] [id number] [address] [place] [address] [place] Methemoglobin (Bld) [Mass fraction] 0.9 % Normal 0.0-1.5 [facility] Comment on above: Order Comment: Speci men Type: ARTERIAL BLOOD SPECIMENOrdering Facility: [facility] Address: [address] [place] [address] Performed By: #### A LLBG ####[facility] [id number] [address] [address] [place] O2 THERAPY NC = Nasal Cannula Normal [facility] Comment on above: Order Comment: Speci men Type: ARTERIAL BLOOD SPECIMENOrdering Facility: [facility] Address: [address] [place], [place] [address] Performed By: #### A LLBG ####[facility] [id number] [address] [address] [place] Oxygen (Bld) [Partial pressure] 77 mm Hg Low 85-95 [facility] Comment on above: Order Comment: Speci men Type: ARTERIAL BLOOD SPECIMENOrdering Facility: [facility] Address: [address] [place], [place] [address] Performed By: #### A LLBG ####[facility] [id number] [address] [place] [address] [place] Oxyhemoglobin (BldA) [Mass fraction] 93 % Low 95-98 [facility] Comment on above: Order Comment: Speci men Type: ARTERIAL BLOOD SPECIMENOrdering Facility: [facility] Address: [address] [place] [address] Performed By: #### A LLBG ####[facility] [id number] [address] [address] [place] pH (Bld) 7.37 [pH] Normal 7.35-7.45 [facility] Comment on above: Order Comment: Speci men Type: ARTERIAL BLOOD SPECIMENOrdering Facility: [facility] Address: [address] [place] [address] Performed By: #### A LLBG ####[facility] [id number] [place] [address] [place] Potassium [Moles/Vol] 4.3 mmol/L Normal 3.5-5.0 [facility] Comment on above: Order Comment: Speci men Type: ARTERIAL BLOOD SPECIMENOrdering Facility: [facility] Address: [address] [place] [address] Performed By: #### A LLBG ####[facility] [id number] [place] [address] [place] Sodium [Moles/Vol] 139 mmol/L Normal 136-144 [facility] Comment on above: Order Comment: Speci men Type: ARTERIAL BLOOD SPECIMENOrdering Facility: [facility] Address: [address] [place] [address] Performed By: #### A LLBG ####[facility] [id number] [address] [address] [place] Base excess Calc (Bld) [Moles/Vol] 0 mmol/L Normal 0-2 [facility] Comment on above: Order Comment: Speci men Type: ARTERIAL BLOOD SPECIMENOrdering Facility: [facility] Address: [address] [place], [place] [address] Performed By: #### A LLBG ####[facility] [id number] [place] [address] [place] Body temperature 98.6 [degF] Normal [facility] Comment on above: Order Comment: Speci men Type: ARTERIAL BLOOD SPECIMENOrdering Facility: [facility] Address: [address] [place] [address] Performed By: #### A LLBG ####[facility] [id number] [place] [address] [place] Calcium.ionized (Bld) [Mass/Vol] 1.19 mmol/L Normal 1.08-1.30 [facility] Comment on above: Order Comment: Speci men Type: ARTERIAL BLOOD SPECIMENOrdering Facility: [facility] Address: [address] [place] [address] Performed By: #### A LLBG ####[facility] [id number] [place] [address] [place] Calcium.ionized adjusted to pH 7.4 (BldA) [Moles/Vol] 1.16 mmol/L Normal 1.08-1.30 [facility] Comment on above: Order Comment: Speci men Type: ARTERIAL BLOOD SPECIMENOrdering Facility: [facility] Address: [address] [place] [address] Performed By: #### A LLBG ####[facility] [id number] [place] [address] [place] Carboxyhemoglobin (BldA) [Mass fraction] 1.6 % Normal 0.0-2.0 [facility] Comment on above: Order Comment: Speci men Type: ARTERIAL BLOOD SPECIMENOrdering Facility: [facility] Address: [address] [place] [address] Result Comment: Carb oxyhemoglobin Reference Range for Smokers: 2.0-8.0% Performed By: #### A LLBG ####[facility] [id number] [address] [id number] [address] [place] CO2 (Bld) [Partial pressure] 47 mm Hg High 36-46 [facility] Comment on above: Order Comment: Speci men Type: ARTERIAL BLOOD SPECIMENOrdering Facility: [facility] Address: [address] [place] [address] Performed By: #### A LLBG ####[facility] [id number] [facility] [place] [address] [place] Glucose [Mass/Vol] 241 mg/dL High 60-105 [facility] Comment on above: Order Comment: Speci men Type: ARTERIAL BLOOD SPECIMENOrdering Facility: [facility] Address: [address] [place] [address] Performed By: #### A LLBG ####[facility] [id number] [facility] [place] [address] [place] HCO3 (Bld) [Moles/Vol] 26 mmol/L Normal 22-26 [facility] Comment on above: Order Comment: Speci men Type: ARTERIAL BLOOD SPECIMENOrdering Facility: [facility] Address: [address] [place] [address] Performed By: #### A LLBG ####[facility] [id number] [place] [address] [place] Hematocrit (Bld) [Volume fraction] 37.6 % Low 39.0-51.0 [facility] Comment on above: Order Comment: Speci men Type: ARTERIAL BLOOD SPECIMENOrdering Facility: [facility] Address: [address] [place] [address] Performed By: #### A LLBG ####[facility] [id number] [place] [id number] [place] Hemoglobin (Bld) [Mass/Vol] 12.2 g/dL Low 13.0-17.0 [facility] Comment on above: Order Comment: Speci men Type: ARTERIAL BLOOD SPECIMENOrdering Facility: [facility] Address: [address] [place], [place] [id number] Performed By: #### A LLBG ####[facility] [id number] [place] [id number] [place] Lactate [Moles/Vol] 1.5 mmol/L Normal 0.5-2.2 [facility] Comment on above: Order Comment: Speci men Type: ARTERIAL BLOOD SPECIMENOrdering Facility: [facility] Address: [address] [place] [address] Performed By: #### A LLBG ####[facility] [id number] [place] [address] [place] LITERS 2 Liters/min Normal [facility] Comment on above: Order Comment: Speci men Type: ARTERIAL BLOOD SPECIMENOrdering Facility: [facility] Address: [address] [place] [address] Performed By: #### A LLBG ####[facility] [id number] [place] [address] [place] Methemoglobin (Bld) [Mass fraction] 0.6 % Normal 0.0-1.5 [facility] Comment on above: Order Comment: Speci men Type: ARTERIAL BLOOD SPECIMENOrdering Facility: [facility] Address: [address] [place] [address] Performed By: #### A LLBG ####[facility] [id number] [place] [id number] [place] O2 THERAPY NC = Nasal Cannula Normal [facility] Comment on above: Order Comment: Speci men Type: ARTERIAL BLOOD SPECIMENOrdering Facility: [facility] Address: [address] [place] [address] Performed By: #### A LLBG ####[facility] [id number] [place] [id number] [place] Oxygen (Bld) [Partial pressure] 93 mm Hg Normal 85-95 [facility] Comment on above: Order Comment: Speci men Type: ARTERIAL BLOOD SPECIMENOrdering Facility: [facility] Address: [address] [place] [address] Performed By: #### A LLBG ####[facility] [id number] [place] [id number] [place] Oxyhemoglobin (BldA) [Mass fraction] 95 % Normal 95-98 [facility] Comment on above: Order Comment: Speci men Type: ARTERIAL BLOOD SPECIMENOrdering Facility: [facility] Address: [address] [place] [address] Performed By: #### A LLBG ####[facility] [id number] [place] [address] [place] pH (Bld) 7.35 [pH] Normal 7.35-7.45 [facility] Comment on above: Order Comment: Speci men Type: ARTERIAL BLOOD SPECIMENOrdering Facility: [facility] Address: [address] [place] [address] Performed By: #### A LLBG ####[facility] [id number] [place] [address] [place] Potassium [Moles/Vol] 4.4 mmol/L Normal 3.5-5.0 [facility] Comment on above: Order Comment: Speci men Type: ARTERIAL BLOOD SPECIMENOrdering Facility: [facility] Address: [address] [place] [address] Performed By: #### A LLBG ####[facility] [id number] [place] [id number] [place] Sodium [Moles/Vol] 138 mmol/L Normal 136-144 [facility] Comment on above: Order Comment: Speci men Type: ARTERIAL BLOOD SPECIMENOrdering Facility: [facility] Address: [address] [place], [place] [address] Performed By: #### A LLBG ####[facility] [id number] [place] [address] [place] Base deficit (BldA) [Moles/Vol] mmol/L Normal -2-0 [facility] Comment on above: Order Comment: Speci men Type: ARTERIAL BLOOD SPECIMENOrdering Facility: [facility] Address: [address] [place] [address] Performed By: #### A LLBG ####[facility] [id number] [place] [address] [place] Body temperature 98.6 [degF] Normal [facility] Comment on above: Order Comment: Speci men Type: ARTERIAL BLOOD SPECIMENOrdering Facility: [facility] Address: [address] [place] [address] Performed By: #### A LLBG ####[facility] [id number] [place] [address] [place] Calcium.ionized (Bld) [Mass/Vol] 1.20 mmol/L Normal 1.08-1.30 [facility] Comment on above: Order Comment: Speci men Type: ARTERIAL BLOOD SPECIMENOrdering Facility: [facility] Address: [address] [place] [address] Performed By: #### A LLBG ####[facility] [id number] [place] [address] [place] Calcium.ionized adjusted to pH 7.4 (BldA) [Moles/Vol] 1.17 mmol/L Normal 1.08-1.30 [facility] Comment on above: Order Comment: Speci men Type: ARTERIAL BLOOD SPECIMENOrdering Facility: [facility] Address: [address] [place] [address] Performed By: #### A LLBG ####[facility] [id number] [place] [id number] [place] Carboxyhemoglobin (BldA) [Mass fraction] 1.5 % Normal 0.0-2.0 [facility] Comment on above: Order Comment: Speci men Type: ARTERIAL BLOOD SPECIMENOrdering Facility: [facility] Address: [address] [place] [address] Result Comment: Carb oxyhemoglobin Reference Range for Smokers: 2.0-8.0% Performed By: #### A LLBG ####[facility] [id number] [place] [address] [place] CO2 (Bld) [Partial pressure] 48 mm Hg High 36-46 [facility] Comment on above: Order Comment: Speci men Type: ARTERIAL BLOOD SPECIMENOrdering Facility: [facility] Address: [address] [place] [address] Performed By: #### A LLBG ####[facility] [id number] [place] [address] [place] Glucose [Mass/Vol] 240 mg/dL High 60-105 [facility] Comment on above: Order Comment: Speci men Type: ARTERIAL BLOOD SPECIMENOrdering Facility: [facility] Address: [address] [place] [address] Performed By: #### A LLBG ####[facility] [id number] [place] [address] [place] HCO3 (Bld) [Moles/Vol] 25 mmol/L Normal 22-26 [facility] Comment on above: Order Comment: Speci men Type: ARTERIAL BLOOD SPECIMENOrdering Facility: [facility] Address: [address] [place] [address] Performed By: #### A LLBG ####[facility] [id number] [place] [address] [place] Hematocrit (Bld) [Volume fraction] 38.3 % Low 39.0-51.0 [facility] Comment on above: Order Comment: Speci men Type: ARTERIAL BLOOD SPECIMENOrdering Facility: [facility] Address: [address] [place] [address] Performed By: #### A LLBG ####[facility] [id number] [place] [id number] [place] Hemoglobin (Bld) [Mass/Vol] 12.5 g/dL Low 13.0-17.0 [facility] Comment on above: Order Comment: Speci men Type: ARTERIAL BLOOD SPECIMENOrdering Facility: [facility] Address: [address] [place] [address] Performed By: #### A LLBG ####[facility] [id number] [place] [id number] [place] Lactate [Moles/Vol] 1.9 mmol/L Normal 0.5-2.2 [facility] Comment on above: Order Comment: Speci men Type: ARTERIAL BLOOD SPECIMENOrdering Facility: [facility] Address: [address] [place] [address] Performed By: #### A LLBG ####[facility] [id number] [address] [place] Methemoglobin (Bld) [Mass fraction] 0.7 % Normal 0.0-1.5 [facility] Comment on above: Order Comment: Speci men Type: ARTERIAL BLOOD SPECIMENOrdering Facility: [facility] Address: [address] [place] [address] Performed By: #### A LLBG ####[facility] [id number] [place] [id number] [place] O2 THERAPY VENT=Ventilator Normal [facility] Comment on above: Order Comment: Speci men Type: ARTERIAL BLOOD SPECIMENOrdering Facility: [facility] Address: [address] [place] [address] Result Comment: CPAP Performed By: #### A LLBG ####[facility] [id number] [place] [id number] [place] Oxygen (Bld) [Partial pressure] 147 mm Hg High 85-95 [facility] Comment on above: Order Comment: Speci men Type: ARTERIAL BLOOD SPECIMENOrdering Facility: [facility] Address: [address] [place] [address] Performed By: #### A LLBG ####[facility] [id number] [address] [address] [place] Oxyhemoglobin (BldA) [Mass fraction] 97 % Normal 95-98 [facility] Comment on above: Order Comment: Speci men Type: ARTERIAL BLOOD SPECIMENOrdering Facility: [facility] Address: [address] [place] [address] Performed By: #### A LLBG ####[facility] [id number] [place] [id number] [place] PEEP/CPAP 5 cmH2O Normal [facility] Comment on above: Order Comment: Speci men Type: ARTERIAL BLOOD SPECIMENOrdering Facility: [facility] Address: [address] [place] [address] Performed By: #### A LLBG ####[facility] [id number] [place] [address] [place] pH (Bld) 7.34 [pH] Low 7.35-7.45 [facility] Comment on above: Order Comment: Speci men Type: ARTERIAL BLOOD SPECIMENOrdering Facility: [facility] Address: [address] [place] [address] Performed By: #### A LLBG ####[facility] [id number] [place] [id number] [place] Potassium [Moles/Vol] 4.3 mmol/L Normal 3.5-5.0 [facility] Comment on above: Order Comment: Speci men Type: ARTERIAL BLOOD SPECIMENOrdering Facility: [facility] Address: [address] [place] [address] Performed By: #### A LLBG ####[facility] [id number] [place] [id number] [place] Sodium [Moles/Vol] 139 mmol/L Normal 136-144 [facility] Comment on above: Order Comment: Speci men Type: ARTERIAL BLOOD SPECIMENOrdering Facility: [facility] Address: [address] [place] [address] Performed By: #### A LLBG ####[facility] [id number] [place] [address] [place] Base deficit (BldA) [Moles/Vol] -1 mmol/L Normal -2-0 [facility] Comment on above: Order Comment: Speci men Type: ARTERIAL BLOOD SPECIMENOrdering Facility: [facility] Address: [address] [place] [address] Performed By: #### A LLBG ####[facility] [id number] [place] [address] [place] Body temperature 98.06 [degF] Normal [facility] Comment on above: Order Comment: Speci men Type: ARTERIAL BLOOD SPECIMENOrdering Facility: [facility] Address: [address] [place] [address] Performed By: #### A LLBG ####[facility] [id number] [place] [address] [place] Calcium.ionized (Bld) [Mass/Vol] 1.19 mmol/L Normal 1.08-1.30 [facility] Comment on above: Order Comment: Speci men Type: ARTERIAL BLOOD SPECIMENOrdering Facility: [facility] Address: [address] [place] [address] Performed By: #### A LLBG ####[facility] [id number] [place] [id number] [place] Calcium.ionized adjusted to pH 7.4 (BldA) [Moles/Vol] 1.18 mmol/L Normal 1.08-1.30 [facility] Comment on above: Order Comment: Speci men Type: ARTERIAL BLOOD SPECIMENOrdering Facility: [facility] Address: [address] [place], [place] [id number] Performed By: #### A LLBG ####[facility] [id number] [address] [address] [place] Carboxyhemoglobin (BldA) [Mass fraction] 1.7 % Normal 0.0-2.0 [facility] Comment on above: Order Comment: Speci men Type: ARTERIAL BLOOD SPECIMENOrdering Facility: [facility] Address: [address] [place], [place] [address] Result Comment: Carb oxyhemoglobin Reference Range for Smokers: 2.0-8.0% Performed By: #### A LLBG ####[facility] [id number] [address] [address] [place] CO2 (Bld) [Partial pressure] 41 mm Hg Normal 36-46 [facility] Comment on above: Order Comment: Speci men Type: ARTERIAL BLOOD SPECIMENOrdering Facility: [facility] Address: [address] [place], [place] [address] Performed By: #### A LLBG ####[facility] [id number] [address] [address] [place] CO2 adjusted to patient's actual temperature (Bld) [Partial pressure] 41 mmHg Normal 36-46 [facility] Comment on above: Order Comment: Speci men Type: ARTERIAL BLOOD SPECIMENOrdering Facility: [facility] Address: [address] [place], [place] [address] Performed By: #### A LLBG ####[facility] [id number] [address] [address] [place] FIO2 40 % Normal [facility] Comment on above: Order Comment: Speci men Type: ARTERIAL BLOOD SPECIMENOrdering Facility: [facility] Address: [address] [place], [place] [address] Performed By: #### A LLBG ####[facility] [id number] [place] [id number] [place] Glucose [Mass/Vol] 218 mg/dL High 60-105 [facility] Comment on above: Order Comment: Speci men Type: ARTERIAL BLOOD SPECIMENOrdering Facility: [facility] Address: [address] [place] [address] Performed By: #### A LLBG ####[facility] [id number] [place] [address] [place] HCO3 (Bld) [Moles/Vol] 24 mmol/L Normal 22-26 [facility] Comment on above: Order Comment: Speci men Type: ARTERIAL BLOOD SPECIMENOrdering Facility: [facility] Address: [address] [place] [address] Performed By: #### A LLBG ####[facility] [id number] [place] [address] [place] Hematocrit (Bld) [Volume fraction] 38.0 % Low 39.0-51.0 [facility] Comment on above: Order Comment: Speci men Type: ARTERIAL BLOOD SPECIMENOrdering Facility: [facility] Address: [address] [place] [address] Performed By: #### A LLBG ####[facility] [id number] [place] [address] [place] Hemoglobin (Bld) [Mass/Vol] 12.4 g/dL Low 13.0-17.0 [facility] Comment on above: Order Comment: Speci men Type: ARTERIAL BLOOD SPECIMENOrdering Facility: [facility] Address: [address] [place] [address] Performed By: #### A LLBG ####[facility] [id number] [place] [id number] [place] Lactate [Moles/Vol] 2.4 mmol/L High 0.5-2.2 [facility] Comment on above: Order Comment: Speci men Type: ARTERIAL BLOOD SPECIMENOrdering Facility: [facility] Address: [address] [place] [id number] Performed By: #### A LLBG ####[facility] [id number] [address] [address] [place] Methemoglobin (Bld) [Mass fraction] 0.7 % Normal 0.0-1.5 [facility] Comment on above: Order Comment: Speci men Type: ARTERIAL BLOOD SPECIMENOrdering Facility: [facility] Address: [address] [place], [place] [address] Performed By: #### A LLBG ####[facility] [id number] [address] [address] [place] O2 THERAPY VENT=Ventilator Normal [facility] Comment on above: Order Comment: Speci men Type: ARTERIAL BLOOD SPECIMENOrdering Facility: [facility] Address: [address] [place], [place] [address] Performed By: #### A LLBG ####[facility] [id number] [address] [address] [place] Oxygen (Bld) [Partial pressure] 168 mm Hg High 85-95 [facility] Comment on above: Order Comment: Speci men Type: ARTERIAL BLOOD SPECIMENOrdering Facility: [facility] Address: [address] [place], [place] [address] Performed By: #### A LLBG ####[facility] [id number] [address] [address] [place] Oxygen adjusted to patient's actual temperature (Bld) [Partial pressure] 166 mmHg High 85-95 [facility] Comment on above: Order Comment: Speci men Type: ARTERIAL BLOOD SPECIMENOrdering Facility: [facility] Address: [address] [place], [place] [address] Performed By: #### A LLBG ####[facility] [id number] [address] [place] [address] [place] Oxyhemoglobin (BldA) [Mass fraction] 97 % Normal 95-98 [facility] Comment on above: Order Comment: Speci men Type: ARTERIAL BLOOD SPECIMENOrdering Facility: [facility] Address: [address] [place] [address] Performed By: #### A LLBG ####[facility] [id number] [place] [id number] [place] pH (Bld) 7.38 [pH] Normal 7.35-7.45 [facility] Comment on above: Order Comment: Speci men Type: ARTERIAL BLOOD SPECIMENOrdering Facility: [facility] Address: [address] [place] [address] Performed By: #### A LLBG ####[facility] [id number] [place] [address] [place] pH adjusted to patient's actual temperature (Bld) 7.39 Normal 7.35-7.45 [facility] Comment on above: Order Comment: Speci men Type: ARTERIAL BLOOD SPECIMENOrdering Facility: [facility] Address: [address] [place] [address] Performed By: #### A LLBG ####[facility] [id number] [place] [id number] [place] PO2 / FIO2 RATIO 420 mmHg Normal >300 [facility] Comment on above: Order Comment: Speci men Type: ARTERIAL BLOOD SPECIMENOrdering Facility: [facility] Address: [address] [place] [address] Performed By: #### A LLBG ####[facility] [id number] [place] [id number] [place] Potassium [Moles/Vol] 4.1 mmol/L Normal 3.5-5.0 [facility] Comment on above: Order Comment: Speci men Type: ARTERIAL BLOOD SPECIMENOrdering Facility: [facility] Address: [address] [place] [address] Performed By: #### A LLBG ####[facility] [id number] [place] [address] [place] Sodium [Moles/Vol] 138 mmol/L Normal 136-144 [facility] Comment on above: Order Comment: Speci men Type: ARTERIAL BLOOD SPECIMENOrdering Facility: [facility] Address: [address] [place] [address] Performed By: #### A LLBG ####[facility] [id number] [place] [address] [place] Base excess Calc (Bld) [Moles/Vol] 0 mmol/L Normal 0-2 [facility] Comment on above: Order Comment: Speci men Type: ARTERIAL BLOOD SPECIMENOrdering Facility: [facility] Address: [address] [place] [address] Performed By: #### A LLBG ####[facility] [id number] [place] [address] [place] Body temperature 98.06 [degF] Normal [facility] Comment on above: Order Comment: Speci men Type: ARTERIAL BLOOD SPECIMENOrdering Facility: [facility] Address: [address] [place] [address] Performed By: #### A LLBG ####[facility] [id number] [place] [address] [place] Calcium.ionized (Bld) [Mass/Vol] 1.18 mmol/L Normal 1.08-1.30 [facility] Comment on above: Order Comment: Speci men Type: ARTERIAL BLOOD SPECIMENOrdering Facility: [facility] Address: [address] [place] [address] Performed By: #### A LLBG ####[facility] [id number] [address] [id number] [address] [place] Calcium.ionized adjusted to pH 7.4 (BldA) [Moles/Vol] 1.16 mmol/L Normal 1.08-1.30 [facility] Comment on above: Order Comment: Speci men Type: ARTERIAL BLOOD SPECIMENOrdering Facility: [facility] Address: [address] [place] [address] Performed By: #### A LLBG ####[facility] [id number] [place] [address] [place] Carboxyhemoglobin (BldA) [Mass fraction] 2.2 % High 0.0-2.0 [facility] Comment on above: Order Comment: Speci men Type: ARTERIAL BLOOD SPECIMENOrdering Facility: [facility] Address: [address] [place] [address] Result Comment: Carb oxyhemoglobin Reference Range for Smokers: 2.0-8.0% Performed By: #### A LLBG ####[facility] [id number] [place] [address] [place] CO2 (Bld) [Partial pressure] 44 mm Hg Normal 36-46 [facility] Comment on above: Order Comment: Speci men Type: ARTERIAL BLOOD SPECIMENOrdering Facility: [facility] Address: [address] [place] [address] Performed By: #### A LLBG ####[facility] [id number] [place] [address] [place] CO2 adjusted to patient's actual temperature (Bld) [Partial pressure] 44 mmHg Normal 36-46 [facility] Comment on above: Order Comment: Speci men Type: ARTERIAL BLOOD SPECIMENOrdering Facility: [facility] Address: [address] [place] [address] Performed By: #### A LLBG ####[facility] [id number] [place] [address] [place] Glucose [Mass/Vol] 168 mg/dL High 60-105 [facility] Comment on above: Order Comment: Speci men Type: ARTERIAL BLOOD SPECIMENOrdering Facility: [facility] Address: [address] [place] [address] Performed By: #### A LLBG ####[facility] [id number] [place] [address] [place] HCO3 (Bld) [Moles/Vol] 25 mmol/L Normal 22-26 [facility] Comment on above: Order Comment: Speci men Type: ARTERIAL BLOOD SPECIMENOrdering Facility: [facility] Address: [address] [place] [address] Performed By: #### A LLBG ####[facility] [id number] [place] [address] [place] Hematocrit (Bld) [Volume fraction] 36.2 % Low 39.0-51.0 [facility] Comment on above: Order Comment: Speci men Type: ARTERIAL BLOOD SPECIMENOrdering Facility: [facility] Address: [address] [place] [address] Performed By: #### A LLBG ####[facility] [id number] [place] [address] [place] Hemoglobin (Bld) [Mass/Vol] 11.8 g/dL Low 13.0-17.0 [facility] Comment on above: Order Comment: Speci men Type: ARTERIAL BLOOD SPECIMENOrdering Facility: [facility] Address: [address] [place] [address] Performed By: #### A LLBG ####[facility] [id number] [place] [address] [place] Lactate [Moles/Vol] 2.7 mmol/L High 0.5-2.2 [facility] Comment on above: Order Comment: Speci men Type: ARTERIAL BLOOD SPECIMENOrdering Facility: [facility] Address: [address] [place] [address] Performed By: #### A LLBG ####[facility] [id number] [address] [place] [address] [place] Methemoglobin (Bld) [Mass fraction] 0.5 % Normal 0.0-1.5 [facility] Comment on above: Order Comment: Speci men Type: ARTERIAL BLOOD SPECIMENOrdering Facility: [facility] Address: [address] [place] [address] Performed By: #### A LLBG ####[facility] [id number] [facility] [address], [facility] [place] O2 THERAPY VENT=Ventilator Normal [facility] Comment on above: Order Comment: Speci men Type: ARTERIAL BLOOD SPECIMENOrdering Facility: [facility] Address: [address] [place] [address] Performed By: #### A LLBG ####[facility] [id number] [address], [facility] [place] Oxygen (Bld) [Partial pressure] 108 mm Hg High 85-95 [facility] Comment on above: Order Comment: Speci men Type: ARTERIAL BLOOD SPECIMENOrdering Facility: [facility] Address: [address] [place] [address] Performed By: #### A LLBG ####[facility]CL[facility] [id number] [address] [place] [address] [place] Oxygen adjusted to patient's actual temperature (Bld) [Partial pressure] 106 mmHg High 85-95 [facility] Comment on above: Order Comment: Speci men Type: ARTERIAL BLOOD SPECIMENOrdering Facility: [facility] Address: [address] [place], [place] [address] Performed By: #### A LLBG ####[facility] [id number] [facility] [address] [place] [address] [place] Oxyhemoglobin (BldA) [Mass fraction] 96 % Normal 95-98 [facility] Comment on above: Order Comment: Speci men Type: ARTERIAL BLOOD SPECIMENOrdering Facility: [facility] Address: [address] [place] [address] Performed By: #### A LLBG ####[facility] [id number] [place] [id number] [place] pH (Bld) 7.37 [pH] Normal 7.35-7.45 [facility] Comment on above: Order Comment: Speci men Type: ARTERIAL BLOOD SPECIMENOrdering Facility: [facility] Address: [address] [place] [address] Performed By: #### A LLBG ####[facility]CL[facility] [id number] [place] [address] [place] pH adjusted to patient's actual temperature (Bld) 7.38 Normal 7.35-7.45 [facility] Comment on above: Order Comment: Speci men Type: ARTERIAL BLOOD SPECIMENOrdering Facility: [facility] Address: [address] [place] [address] Performed By: #### A LLBG ####[facility] [id number] [place] [address] [place] Potassium [Moles/Vol] 3.9 mmol/L Normal 3.5-5.0 [facility] Comment on above: Order Comment: Speci men Type: ARTERIAL BLOOD SPECIMENOrdering Facility: [facility] Address: [address] [place] [address] Performed By: #### A LLBG ####[facility] [id number] [place] [id number] [place] Sodium [Moles/Vol] 138 mmol/L Normal 136-144 [facility] Comment on above: Order Comment: Speci men Type: ARTERIAL BLOOD SPECIMENOrdering Facility: [facility] Address: [address] [place] [address] Performed By: #### A LLBG ####[facility] [id number] [place] [address] [place] Base deficit (BldA) [Moles/Vol] -1 mmol/L Normal -2-0 [facility] Comment on above: Order Comment: Speci men Type: ARTERIAL BLOOD SPECIMENOrdering Facility: [facility] Address: [address] [place] [address] Performed By: #### A LLBG ####[facility] LABIA [id number] [place] [address] [place] Calcium.ionized (Bld) [Mass/Vol] 1.22 mmol/L Normal 1.08-1.30 [facility] Comment on above: Order Comment: Speci men Type: ARTERIAL BLOOD SPECIMENOrdering Facility: [facility] Address: [address] [place] [address] Performed By: #### A LLBG ####[facility] LABIA [id number] [place] [address] [place] Calcium.ionized adjusted to pH 7.4 (BldA) [Moles/Vol] 1.17 mmol/L Normal 1.08-1.30 [facility] Comment on above: Order Comment: Speci men Type: ARTERIAL BLOOD SPECIMENOrdering Facility: [facility] Address: [address] [place] [address] Performed By: #### A LLBG ####[facility] LABIA [id number] [place] [address] [place] Carboxyhemoglobin (BldA) [Mass fraction] 1.7 % Normal 0.0-2.0 [facility] Comment on above: Order Comment: Speci men Type: ARTERIAL BLOOD SPECIMENOrdering Facility: [facility] Address: [address] [place] [address] Result Comment: Carb oxyhemoglobin Reference Range for Smokers: 2.0-8.0% Performed By: #### A LLBG ####[facility] LABIA [id number] [place] [id number] [place] CO2 (Bld) [Partial pressure] 50 mm Hg High 36-46 [facility] Comment on above: Order Comment: Speci men Type: ARTERIAL BLOOD SPECIMENOrdering Facility: [facility] Address: [address] [place] [address] Performed By: #### A LLBG ####[facility] [id number] [place] [address] [place] CO2 adjusted to patient's actual temperature (Bld) [Partial pressure] 50 mmHg High 36-46 [facility] Comment on above: Order Comment: Speci men Type: ARTERIAL BLOOD SPECIMENOrdering Facility: [facility] Address: [address] [place] [address] Performed By: #### A LLBG ####[facility] [id number] [place] [address] [place] Glucose [Mass/Vol] 179 mg/dL High 60-105 [facility] Comment on above: Order Comment: Speci men Type: ARTERIAL BLOOD SPECIMENOrdering Facility: [facility] Address: [address] [place] [address] Performed By: #### A LLBG ####[facility] [id number] [place] [address] [place] HCO3 (Bld) [Moles/Vol] 25 mmol/L Normal 22-26 [facility] Comment on above: Order Comment: Speci men Type: ARTERIAL BLOOD SPECIMENOrdering Facility: [facility] Address: [address] [place] [address] Performed By: #### A LLBG ####[facility]CL[facility] [id number] [place] [id number] [place] Hematocrit (Bld) [Volume fraction] 35.6 % Low 39.0-51.0 [facility] Comment on above: Order Comment: Speci men Type: ARTERIAL BLOOD SPECIMENOrdering Facility: [facility] Address: [address] [place] [address] Performed By: #### A LLBG ####[facility]CL[facility] [id number] [place] [address] [place] Hemoglobin (Bld) [Mass/Vol] 11.6 g/dL Low 13.0-17.0 [facility] Comment on above: Order Comment: Speci men Type: ARTERIAL BLOOD SPECIMENOrdering Facility: [facility] Address: [address] [place] [address] Performed By: #### A LLBG ####[facility] LABIA [id number] [place] [address] [place] Lactate [Moles/Vol] 3.0 mmol/L High 0.5-2.2 [facility] Comment on above: Order Comment: Speci men Type: ARTERIAL BLOOD SPECIMENOrdering Facility: [facility] Address: [address] [place] [address] Performed By: #### A LLBG ####[facility] LABIA [id number] [place] [address] [place] Methemoglobin (Bld) [Mass fraction] 0.7 % Normal 0.0-1.5 [facility] Comment on above: Order Comment: Speci men Type: ARTERIAL BLOOD SPECIMENOrdering Facility: [facility] Address: [address] [place] [address] Performed By: #### A LLBG ####[facility] LABIA [id number] [place] [id number] [place] Oxygen (Bld) [Partial pressure] 278 mm Hg High 85-95 [facility] Comment on above: Order Comment: Speci men Type: ARTERIAL BLOOD SPECIMENOrdering Facility: [facility] Address: [address] [place] [address] Performed By: #### A LLBG ####[facility] LABIA [id number] [place] [id number] [place] Oxygen adjusted to patient's actual temperature (Bld) [Partial pressure] 278 mmHg High 85-95 [facility] Comment on above: Order Comment: Speci men Type: ARTERIAL BLOOD SPECIMENOrdering Facility: [facility] Address: [address] [place] [address] Performed By: #### A LLBG ####[facility]CL[facility] [id number] [place] [address] [place] Oxyhemoglobin (BldA) [Mass fraction] 97 % Normal 95-98 [facility] Comment on above: Order Comment: Speci men Type: ARTERIAL BLOOD SPECIMENOrdering Facility: [facility] Address: [address] [place] [address] Performed By: #### A LLBG ####[facility]CL[facility] [id number] [place] [address] [place] pH (Bld) 7.32 [pH] Low 7.35-7.45 [facility] Comment on above: Order Comment: Speci men Type: ARTERIAL BLOOD SPECIMENOrdering Facility: [facility] Address: [address] [place] [address] Performed By: #### A LLBG ####[facility]CL[facility] [id number] [place] [id number] [place] pH adjusted to patient's actual temperature (Bld) 7.32 Low 7.35-7.45 [facility] Comment on above: Order Comment: Speci men Type: ARTERIAL BLOOD SPECIMENOrdering Facility: [facility] Address: [address] [place], [place] [address] Performed By: #### A LLBG ####[facility]CL[facility] [id number] [place] [id number] [place] Potassium [Moles/Vol] 3.8 mmol/L Normal 3.5-5.0 [facility] Comment on above: Order Comment: Speci men Type: ARTERIAL BLOOD SPECIMENOrdering Facility: [facility] Address: [address] [place] [address] Performed By: #### A LLBG ####[facility]CL[facility] [id number] [place] [address] [place] Sodium [Moles/Vol] 140 mmol/L Normal 136-144 [facility] Comment on above: Order Comment: Speci men Type: ARTERIAL BLOOD SPECIMENOrdering Facility: [facility] Address: [address] [place] [address] Performed By: #### A LLBG ####[facility] LABIA [id number] [place] [address] [place] Base deficit (BldA) [Moles/Vol] -1 mmol/L Normal -2-0 [facility] Comment on above: Order Comment: Speci men Type: ARTERIAL BLOOD SPECIMENOrdering Facility: [facility] Address: [address] [place] [address] Performed By: #### A LLBG ####[facility] LABIA [id number] [place] [address] [place] Calcium.ionized (Bld) [Mass/Vol] 1.09 mmol/L Normal 1.08-1.30 [facility] Comment on above: Order Comment: Speci men Type: ARTERIAL BLOOD SPECIMENOrdering Facility: [facility] Address: [address] [place] [address] Performed By: #### A LLBG ####[facility] LABIA [id number] [place] [address] [place] Calcium.ionized adjusted to pH 7.4 (BldA) [Moles/Vol] 1.07 mmol/L Low 1.08-1.30 [facility] Comment on above: Order Comment: Speci men Type: ARTERIAL BLOOD SPECIMENOrdering Facility: [facility] Address: [address] [place] [address] Performed By: #### A LLBG ####[facility]CL[facility] [id number] [place] [address] [place] Carboxyhemoglobin (BldA) [Mass fraction] 2.5 % High 0.0-2.0 [facility] Comment on above: Order Comment: Speci men Type: ARTERIAL BLOOD SPECIMENOrdering Facility: [facility] Address: [address] [place] [address] Result Comment: Carb oxyhemoglobin Reference Range for Smokers: 2.0-8.0% Performed By: #### A LLBG ####[facility]CL[facility] [id number] [place] [address] [place] CO2 (Bld) [Partial pressure] 42 mm Hg Normal 36-46 [facility] Comment on above: Order Comment: Speci men Type: ARTERIAL BLOOD SPECIMENOrdering Facility: [facility] Address: [address] [place] [address] Performed By: #### A LLBG ####[facility]CL[facility] [id number] [place] [address] [place] CO2 adjusted to patient's actual temperature (Bld) [Partial pressure] 42 mmHg Normal 36-46 [facility] Comment on above: Order Comment: Speci men Type: ARTERIAL BLOOD SPECIMENOrdering Facility: [facility] Address: [address] [place] [address] Performed By: #### A LLBG ####[facility]CL[facility] [id number] [place] [id number] [place] Glucose [Mass/Vol] 350 mg/dL High 60-105 [facility] Comment on above: Order Comment: Speci men Type: ARTERIAL BLOOD SPECIMENOrdering Facility: [facility] Address: [address] [place] [address] Performed By: #### A LLBG ####[facility] LABIA [id number] [place] [id number] [place] HCO3 (Bld) [Moles/Vol] 24 mmol/L Normal 22-26 [facility] Comment on above: Order Comment: Speci men Type: ARTERIAL BLOOD SPECIMENOrdering Facility: [facility] Address: [address] [place] [address] Performed By: #### A LLBG ####[facility] LABIA [id number] [place] [id number] [place] Hematocrit (Bld) [Volume fraction] 32.6 % Low 39.0-51.0 [facility] Comment on above: Order Comment: Speci men Type: ARTERIAL BLOOD SPECIMENOrdering Facility: [facility] Address: [address] [place] [address] Performed By: #### A LLBG ####[facility] [id number] [place] [address] [place] Hemoglobin (Bld) [Mass/Vol] 10.6 g/dL Low 13.0-17.0 [facility] Comment on above: Order Comment: Speci men Type: ARTERIAL BLOOD SPECIMENOrdering Facility: [facility] Address: [address] [place] [address] Performed By: #### A LLBG ####[facility] LABIA [id number] [place] [address] [place] Lactate [Moles/Vol] 3.0 mmol/L High 0.5-2.2 [facility] Comment on above: Order Comment: Speci men Type: ARTERIAL BLOOD SPECIMENOrdering Facility: [facility] Address: [address] [place] [address] Performed By: #### A LLBG ####[facility] LABIA [id number] [place] [address] [place] Methemoglobin (Bld) [Mass fraction] 0.6 % Normal 0.0-1.5 [facility] Comment on above: Order Comment: Speci men Type: ARTERIAL BLOOD SPECIMENOrdering Facility: [facility] Address: [address] [place] [address] Performed By: #### A LLBG ####[facility]CL[facility] [id number] [address] [address] [place] Oxygen (Bld) [Partial pressure] 236 mm Hg High 85-95 [facility] Comment on above: Order Comment: Speci men Type: ARTERIAL BLOOD SPECIMENOrdering Facility: [facility] Address: [address] [place] [address] Performed By: #### A LLBG ####[facility]CL[facility] [id number] [place] [id number] [place] Oxygen adjusted to patient's actual temperature (Bld) [Partial pressure] 236 mmHg High 85-95 [facility] Comment on above: Order Comment: Speci men Type: ARTERIAL BLOOD SPECIMENOrdering Facility: [facility] Address: [address] [place] [address] Performed By: #### A LLBG ####[facility]CL[facility] [id number] [place] [address] [place] Oxyhemoglobin (BldA) [Mass fraction] 97 % Normal 95-98 [facility] Comment on above: Order Comment: Speci men Type: ARTERIAL BLOOD SPECIMENOrdering Facility: [facility] Address: [address] [place] [address] Performed By: #### A LLBG ####[facility] [id number] [place] [id number] [place] pH (Bld) 7.36 [pH] Normal 7.35-7.45 [facility] Comment on above: Order Comment: Speci men Type: ARTERIAL BLOOD SPECIMENOrdering Facility: [facility] Address: [address] [place] [address] Performed By: #### A LLBG ####[facility]CL[facility] [id number] [place] [id number] [place] pH adjusted to patient's actual temperature (Bld) 7.36 Normal 7.35-7.45 [facility] Comment on above: Order Comment: Speci men Type: ARTERIAL BLOOD SPECIMENOrdering Facility: [facility] Address: [address] [place] [address] Performed By: #### A LLBG ####[facility]CL[facility] [id number] [place] [address] [place] Potassium [Moles/Vol] 6.2 mmol/L Critically high 3.5-5.0 [facility] Comment on above: Order Comment: Speci men Type: ARTERIAL BLOOD SPECIMENOrdering Facility: [facility] Address: [address] [place] [address] Performed By: #### A LLBG ####[facility] [id number] [place] [address] [place] Sodium [Moles/Vol] 133 mmol/L Low 136-144 [facility] Comment on above: Order Comment: Speci men Type: ARTERIAL BLOOD SPECIMENOrdering Facility: [facility] Address: [address] [place] [address] Performed By: #### A LLBG ####[facility] LABIA [id number] [place] [address] [place] Base deficit (BldA) [Moles/Vol] -3 mmol/L Low -2-0 [facility] Comment on above: Order Comment: Speci men Type: ARTERIAL BLOOD SPECIMENOrdering Facility: [facility] Address: [address] [place] [address] Performed By: #### A LLBG ####[facility] [id number] [place] [address] [place] Calcium.ionized (Bld) [Mass/Vol] 1.13 mmol/L Normal 1.08-1.30 [facility] Comment on above: Order Comment: Speci men Type: ARTERIAL BLOOD SPECIMENOrdering Facility: [facility] Address: [address] [place] [address] Performed By: #### A LLBG ####[facility]CL[facility] [id number] [place] [address] [place] Calcium.ionized adjusted to pH 7.4 (BldA) [Moles/Vol] 1.12 mmol/L Normal 1.08-1.30 [facility] Comment on above: Order Comment: Speci men Type: ARTERIAL BLOOD SPECIMENOrdering Facility: [facility] Address: [address] [place] [address] Performed By: #### A LLBG ####[facility]CL[facility] [id number] [place] [address] [place] Carboxyhemoglobin (BldA) [Mass fraction] 2.6 % High 0.0-2.0 [facility] Comment on above: Order Comment: Speci men Type: ARTERIAL BLOOD SPECIMENOrdering Facility: [facility] Address: [address] [place] [address] Result Comment: Carb oxyhemoglobin Reference Range for Smokers: 2.0-8.0% Performed By: #### A LLBG ####[facility]CL[facility] [id number] [place] [address] [place] CO2 (Bld) [Partial pressure] 36 mm Hg Normal 36-46 [facility] Comment on above: Order Comment: Speci men Type: ARTERIAL BLOOD SPECIMENOrdering Facility: [facility] Address: [address] [place] [address] Performed By: #### A LLBG ####[facility]CL[facility] [id number] [place] [address] [place] CO2 adjusted to patient's actual temperature (Bld) [Partial pressure] 36 mmHg Normal 36-46 [facility] Comment on above: Order Comment: Speci men Type: ARTERIAL BLOOD SPECIMENOrdering Facility: [facility] Address: [address] [place] [address] Performed By: #### A LLBG ####[facility] [id number] [place] [id number] [place] Glucose [Mass/Vol] 367 mg/dL High 60-105 [facility] Comment on above: Order Comment: Speci men Type: ARTERIAL BLOOD SPECIMENOrdering Facility: [facility] Address: [address] [place] [address] Performed By: #### A LLBG ####[facility]CL[facility] [id number] [place] [address] [place] HCO3 (Bld) [Moles/Vol] 21 mmol/L Low 22-26 [facility] Comment on above: Order Comment: Speci men Type: ARTERIAL BLOOD SPECIMENOrdering Facility: [facility] Address: [address] [place] [address] Performed By: #### A LLBG ####[facility]CL[facility] [id number] [place] [address] [place] Hematocrit (Bld) [Volume fraction] 35.4 % Low 39.0-51.0 [facility] Comment on above: Order Comment: Speci men Type: ARTERIAL BLOOD SPECIMENOrdering Facility: [facility] Address: [address] [place] [address] Performed By: #### A LLBG ####[facility]CL[facility] [id number] [place] [address] [place] Hemoglobin (Bld) [Mass/Vol] 11.5 g/dL Low 13.0-17.0 [facility] Comment on above: Order Comment: Speci men Type: ARTERIAL BLOOD SPECIMENOrdering Facility: [facility] Address: [address] [place] [address] Performed By: #### A LLBG ####[facility]CL[facility] [id number] [place] [id number] [place] Lactate [Moles/Vol] 1.7 mmol/L Normal 0.5-2.2 [facility] Comment on above: Order Comment: Speci men Type: ARTERIAL BLOOD SPECIMENOrdering Facility: [facility] Address: [address] [place] [address] Performed By: #### A LLBG ####[facility]CL[facility] [id number] [address] [address] [place] Methemoglobin (Bld) [Mass fraction] 0.3 % Normal 0.0-1.5 [facility] Comment on above: Order Comment: Speci men Type: ARTERIAL BLOOD SPECIMENOrdering Facility: [facility] Address: [address] [place], [place] [address] Performed By: #### A LLBG ####[facility] [id number] [address] [address] [place] Oxygen (Bld) [Partial pressure] 346 mm Hg High 85-95 [facility] Comment on above: Order Comment: Speci men Type: ARTERIAL BLOOD SPECIMENOrdering Facility: [facility] Address: [address] [place], [place] [id number] Performed By: #### A LLBG ####[facility] [id number] [address] [address] [place] Oxygen adjusted to patient's actual temperature (Bld) [Partial pressure] 346 mmHg High 85-95 [facility] Comment on above: Order Comment: Speci men Type: ARTERIAL BLOOD SPECIMENOrdering Facility: [facility] Address: [address] [place], [place] [address] Performed By: #### A LLBG ####[facility] [id number] [address] [address] [place] Oxyhemoglobin (BldA) [Mass fraction] 98 % Normal 95-98 [facility] Comment on above: Order Comment: Speci men Type: ARTERIAL BLOOD SPECIMENOrdering Facility: [facility] Address: [address] [place] [address] Performed By: #### A LLBG ####[facility] [id number] [place] [id number] [place] pH (Bld) 7.39 [pH] Normal 7.35-7.45 [facility] Comment on above: Order Comment: Speci men Type: ARTERIAL BLOOD SPECIMENOrdering Facility: [facility] Address: [address] [place] [address] Performed By: #### A LLBG ####[facility] [id number] [place] [address] [place] pH adjusted to patient's actual temperature (Bld) 7.39 Normal 7.35-7.45 [facility] Comment on above: Order Comment: Speci men Type: ARTERIAL BLOOD SPECIMENOrdering Facility: [facility] Address: [address] [place] [address] Performed By: #### A LLBG ####[facility] [id number] [place] [address] [place] Potassium [Moles/Vol] 5.7 mmol/L High 3.5-5.0 [facility] Comment on above: Order Comment: Speci men Type: ARTERIAL BLOOD SPECIMENOrdering Facility: [facility] Address: [address] [place] [address] Performed By: #### A LLBG ####[facility] [id number] [place] [address] [place] Order Comment: Speci men Type: VENOUS BLOOD SPECIMENOrdering Facility: [facility] Address: [address] [place] [address] Performed By: #### 2 4344-4 ####[facility] [id number] [place] [id number] [place] Sodium [Moles/Vol] 136 mmol/L Normal 136-144 [facility] Comment on above: Order Comment: Speci men Type: ARTERIAL BLOOD SPECIMENOrdering Facility: [facility] Address: [address] [place] [address] Performed By: #### A LLBG ####[facility] [id number] [place] [address] [place] Base excess Calc (Bld) [Moles/Vol] 1 mmol/L Normal 0-2 [facility] Comment on above: Order Comment: Speci men Type: ARTERIAL BLOOD SPECIMENOrdering Facility: [facility] Address: [address] [place] [address] Performed By: #### A LLBG ####[facility] [id number] [place] [address] [place] Calcium.ionized (Bld) [Mass/Vol] 1.19 mmol/L Normal 1.08-1.30 [facility] Comment on above: Order Comment: Speci men Type: ARTERIAL BLOOD SPECIMENOrdering Facility: [facility] Address: [address] [place] [address] Performed By: #### A LLBG ####[facility] [id number] [place] [address] [place] Calcium.ionized adjusted to pH 7.4 (BldA) [Moles/Vol] 1.18 mmol/L Normal 1.08-1.30 [facility] Comment on above: Order Comment: Speci men Type: ARTERIAL BLOOD SPECIMENOrdering Facility: [facility] Address: [address] [place] [address] Performed By: #### A LLBG ####[facility] [id number] [place] [address] [place] Carboxyhemoglobin (BldA) [Mass fraction] 2.6 % High 0.0-2.0 [facility] Comment on above: Order Comment: Speci men Type: ARTERIAL BLOOD SPECIMENOrdering Facility: [facility] Address: [address] [place] [address] Result Comment: Carb oxyhemoglobin Reference Range for Smokers: 2.0-8.0% Performed By: #### A LLBG ####[facility] [id number] [address] [place] [address] [place] CO2 (Bld) [Partial pressure] 43 mm Hg Normal 36-46 [facility] Comment on above: Order Comment: Speci men Type: ARTERIAL BLOOD SPECIMENOrdering Facility: [facility] Address: [address] [place] [address] Performed By: #### A LLBG ####[facility] [id number] [address] [place] [address] [place] CO2 adjusted to patient's actual temperature (Bld) [Partial pressure] 43 mmHg Normal 36-46 [facility] Comment on above: Order Comment: Speci men Type: ARTERIAL BLOOD SPECIMENOrdering Facility: [facility] Address: [address] [place] [address] Performed By: #### A LLBG ####[facility] [id number] [place] [id number] [place] Glucose [Mass/Vol] 236 mg/dL High 60-105 [facility] Comment on above: Order Comment: Speci men Type: ARTERIAL BLOOD SPECIMENOrdering Facility: [facility] Address: [address] [place] [address] Performed By: #### A LLBG ####[facility] [id number] [place] [id number] [place] HCO3 (Bld) [Moles/Vol] 26 mmol/L Normal 22-26 [facility] Comment on above: Order Comment: Speci men Type: ARTERIAL BLOOD SPECIMENOrdering Facility: [facility] Address: [address] [place] [address] Performed By: #### A LLBG ####[facility] [id number] [address] [address] [place] Hematocrit (Bld) [Volume fraction] 41.8 % Normal 39.0-51.0 [facility] Comment on above: Order Comment: Speci men Type: ARTERIAL BLOOD SPECIMENOrdering Facility: [facility] Address: [address] [place] [address] Performed By: #### A LLBG ####[facility] [id number] [place] [id number] [place] Hemoglobin (Bld) [Mass/Vol] 13.6 g/dL Normal 13.0-17.0 [facility] Comment on above: Order Comment: Speci men Type: ARTERIAL BLOOD SPECIMENOrdering Facility: [facility] Address: [address] [place] [address] Performed By: #### A LLBG ####[facility] [id number] [place] [address] [place] Lactate [Moles/Vol] 1.2 mmol/L Normal 0.5-2.2 [facility] Comment on above: Order Comment: Speci men Type: ARTERIAL BLOOD SPECIMENOrdering Facility: [facility] Address: [address] [place] [address] Performed By: #### A LLBG ####[facility] [id number] [address] [place] Methemoglobin (Bld) [Mass fraction] 0.8 % Normal 0.0-1.5 [facility] Comment on above: Order Comment: Speci men Type: ARTERIAL BLOOD SPECIMENOrdering Facility: [facility] Address: [address] [place] [address] Performed By: #### A LLBG ####[facility] [id number] [place] [id number] [place] Oxygen (Bld) [Partial pressure] 112 mm Hg High 85-95 [facility] Comment on above: Order Comment: Speci men Type: ARTERIAL BLOOD SPECIMENOrdering Facility: [facility] Address: [address] [place] [address] Performed By: #### A LLBG ####[facility] [id number] [address] [address] [place] Oxygen adjusted to patient's actual temperature (Bld) [Partial pressure] 112 mmHg High 85-95 [facility] Comment on above: Order Comment: Speci men Type: ARTERIAL BLOOD SPECIMENOrdering Facility: [facility] Address: [address] [place] [address] Performed By: #### A LLBG ####[facility] [id number] [place] [id number] [place] Oxyhemoglobin (BldA) [Mass fraction] 95 % Normal 95-98 [facility] Comment on above: Order Comment: Speci men Type: ARTERIAL BLOOD SPECIMENOrdering Facility: [facility] Address: [address] [place] [address] Performed By: #### A LLBG ####[facility] [id number] [place] [id number] [place] pH (Bld) 7.39 [pH] Normal 7.35-7.45 [facility] Comment on above: Order Comment: Speci men Type: ARTERIAL BLOOD SPECIMENOrdering Facility: [facility] Address: [address] [place] [address] Performed By: #### A LLBG ####[facility] [id number] [place] [id number] [place] pH adjusted to patient's actual temperature (Bld) 7.39 Normal 7.35-7.45 [facility] Comment on above: Order Comment: Speci men Type: ARTERIAL BLOOD SPECIMENOrdering Facility: [facility] Address: [address] [place] [address] Performed By: #### A LLBG ####[facility] [id number] [address] [address] [place] Potassium [Moles/Vol] 3.8 mmol/L Normal 3.5-5.0 [facility] Comment on above: Order Comment: Speci men Type: ARTERIAL BLOOD SPECIMENOrdering Facility: [facility] Address: [address] [place] [address] Performed By: #### A LLBG ####[facility] [id number] [place] [id number] [place] Sodium [Moles/Vol] 139 mmol/L Normal 136-144 [facility] Comment on above: Order Comment: Speci men Type: ARTERIAL BLOOD SPECIMENOrdering Facility: [facility] Address: [address] [place] [address] Performed By: #### A LLBG ####[facility] [id number] [place] [address] [place] ARTERIAL BLOOD GASES WITH IO NIZED MAGNESIUMon 12-25-2024 Base deficit (BldA) [Moles/Vol] -4 mmol/L Low -2-0 [facility] Comment on above: Order Comment: Speci men Type: ARTERIAL BLOOD SPECIMENOrdering Facility: [facility] Address: [address] [place] [address] Performed By: #### A LLMG ####[facility] [id number] [place] [address] [place] Calcium.ionized (Bld) [Mass/Vol] 1.24 mmol/L Normal 1.08-1.30 [facility] Comment on above: Order Comment: Speci men Type: ARTERIAL BLOOD SPECIMENOrdering Facility: [facility] Address: [address] [place] [address] Performed By: #### A LLMG ####[facility] [id number] [place] [address] [place] Calcium.ionized adjusted to pH 7.4 (BldA) [Moles/Vol] 1.16 mmol/L Normal 1.08-1.30 [facility] Comment on above: Order Comment: Speci men Type: ARTERIAL BLOOD SPECIMENOrdering Facility: [facility] Address: [address] [place] [address] Performed By: #### A LLMG ####[facility] [id number] [place] [address] [place] Carboxyhemoglobin (BldA) [Mass fraction] 1.8 % Normal 0.0-2.0 [facility] Comment on above: Order Comment: Speci men Type: ARTERIAL BLOOD SPECIMENOrdering Facility: [facility] Address: [address] [place] [address] Result Comment: Carb oxyhemoglobin Reference Range for Smokers: 2.0-8.0% Performed By: #### A LLMG ####[facility] [id number] [place] [address] [place] CO2 (Bld) [Partial pressure] 51 mm Hg High 36-46 [facility] Comment on above: Order Comment: Speci men Type: ARTERIAL BLOOD SPECIMENOrdering Facility: [facility] Address: [address] [place] [address] Performed By: #### A LLMG ####[facility] [id number] [place] [address] [place] CO2 adjusted to patient's actual temperature (Bld) [Partial pressure] 51 mmHg High 36-46 [facility] Comment on above: Order Comment: Speci men Type: ARTERIAL BLOOD SPECIMENOrdering Facility: [facility] Address: [address] [place] [address] Performed By: #### A LLMG ####[facility] [id number] [place] [address] [place] Glucose [Mass/Vol] 337 mg/dL High 60-105 [facility] Comment on above: Order Comment: Speci men Type: ARTERIAL BLOOD SPECIMENOrdering Facility: [facility] Address: [address] [place] [address] Performed By: #### A LLMG ####[facility] [id number] [place] [id number] [place] HCO3 (Bld) [Moles/Vol] 23 mmol/L Normal 22-26 [facility] Comment on above: Order Comment: Speci men Type: ARTERIAL BLOOD SPECIMENOrdering Facility: [facility] Address: [address] [place] [address] Performed By: #### A LLMG ####[facility] [id number] [place] [address] [place] Hematocrit (Bld) [Volume fraction] 34.5 % Low 39.0-51.0 [facility] Comment on above: Order Comment: Speci men Type: ARTERIAL BLOOD SPECIMENOrdering Facility: [facility] Address: [address] [place] [address] Performed By: #### A LLMG ####[facility] [id number] [place] [address] [place] Hemoglobin (Bld) [Mass/Vol] 11.2 g/dL Low 13.0-17.0 [facility] Comment on above: Order Comment: Speci men Type: ARTERIAL BLOOD SPECIMENOrdering Facility: [facility] Address: [address] [place] [address] Performed By: #### A LLMG ####[facility] [id number] [place] [address] [place] Lactate [Moles/Vol] 3.8 mmol/L High 0.5-2.2 [facility] Comment on above: Order Comment: Speci men Type: ARTERIAL BLOOD SPECIMENOrdering Facility: [facility] Address: [address] [place] [address] Performed By: #### A LLMG ####[facility] [id number] [place] [id number] [place] Magnesium [Moles/Vol] 0.63 mmol/L High 0.45-0.60 [facility] Comment on above: Order Comment: Speci men Type: ARTERIAL BLOOD SPECIMENOrdering Facility: [facility] Address: [address] [place] [id number] Performed By: #### A LLMG ####[facility] [id number] [address] [address] [place] Methemoglobin (Bld) [Mass fraction] 0.8 % Normal 0.0-1.5 [facility] Comment on above: Order Comment: Speci men Type: ARTERIAL BLOOD SPECIMENOrdering Facility: [facility] Address: [address] [place], [place] [address] Performed By: #### A LLMG ####[facility] [id number] [address] [address] [place] Oxygen (Bld) [Partial pressure] 253 mm Hg High 85-95 [facility] Comment on above: Order Comment: Speci men Type: ARTERIAL BLOOD SPECIMENOrdering Facility: [facility] Address: [address] [place], [place] [address] Performed By: #### A LLMG ####[facility] [id number] [place] [id number] [place] Oxygen adjusted to patient's actual temperature (Bld) [Partial pressure] 253 mmHg High 85-95 [facility] Comment on above: Order Comment: Speci men Type: ARTERIAL BLOOD SPECIMENOrdering Facility: [facility] Address: [address] [place] [id number] Performed By: #### A LLMG ####[facility] [id number] [address] [address] [place] Oxyhemoglobin (BldA) [Mass fraction] 97 % Normal 95-98 [facility] Comment on above: Order Comment: Speci men Type: ARTERIAL BLOOD SPECIMENOrdering Facility: [facility] Address: [address] [place], [place] [address] Performed By: #### A LLMG ####[facility] [id number] [address] [address] [place] pH (Bld) 7.27 [pH] Low 7.35-7.45 [facility] Comment on above: Order Comment: Speci men Type: ARTERIAL BLOOD SPECIMENOrdering Facility: [facility] Address: [address] [place] [address] Performed By: #### A LLMG ####[facility] [id number] [address] [address] [place] pH adjusted to patient's actual temperature (Bld) 7.27 Low 7.35-7.45 [facility] Comment on above: Order Comment: Speci men Type: ARTERIAL BLOOD SPECIMENOrdering Facility: [facility] Address: [address] [place] [address] Performed By: #### A LLMG ####[facility] [id number] [place] [id number] [place] Potassium [Moles/Vol] 5.2 mmol/L High 3.5-5.0 [facility] Comment on above: Order Comment: Speci men Type: ARTERIAL BLOOD SPECIMENOrdering Facility: [facility] Address: [address] [place], [place] [address] Performed By: #### A LLMG ####[facility] [id number] [place] [id number] [place] Sodium [Moles/Vol] 132 mmol/L Low 136-144 [facility] Comment on above: Order Comment: Speci men Type: ARTERIAL BLOOD SPECIMENOrdering Facility: [facility] Address: [address] [place] [address] Performed By: #### A LLMG ####[facility] [id number] [address] [address] [place] ECG COMPLETEon 12-25-2024 ECG COMPLETE Normal [facility] Fibrinogen PPP-mCncon 2024 Fibrinogen Coag (PPP) [Mass/Vol] 178 mg/dL Low 200-400 [facility] Comment on above: Order Comment: Speci men Type: BLOOD SPECIMENOrdering Facility: [facility] Address: [address] [place] [address] Performed By: #### 3 255-7 ####[facility] [id number] [place] [address] [place] Gas and Carbon monoxide pane l (BldV)on 12-25-2024 BASE DEFICIT, VENOUS -2 mmol/L Normal -2-0 [facility] Comment on above: Order Comment: Speci men Type: VENOUS BLOOD SPECIMENOrdering Facility: [facility] Address: [address] [place] [address] Performed By: #### 2 4344-4 ####[facility] [id number] [place] [address] [place] Calcium.ionized (Bld) [Mass/Vol] 1.15 mmol/L Normal 1.08-1.30 [facility] Comment on above: Order Comment: Speci men Type: VENOUS BLOOD SPECIMENOrdering Facility: [facility] Address: [address] [place] [address] Performed By: #### 2 4344-4 ####[facility] [id number] [place] [address] [place] Calcium.ionized adjusted to pH 7.4 (BldA) [Moles/Vol] 1.10 mmol/L Normal 1.08-1.30 [facility] Comment on above: Order Comment: Speci men Type: VENOUS BLOOD SPECIMENOrdering Facility: [facility] Address: [address] [place] [address] Performed By: #### 2 4344-4 ####[facility] [id number] [place] [address] [place] Carboxyhemoglobin (BldV) [Mass fraction] 2.0 % Normal 0.0-2.0 [facility] Comment on above: Order Comment: Speci men Type: VENOUS BLOOD SPECIMENOrdering Facility: [facility] Address: [address] [place] [address] Result Comment: Carb oxyhemoglobin Reference Range for Smokers: 2.0-8.0% Performed By: #### 2 4344-4 ####[facility] [id number] [place] [address] [place] CO2 (BldV) [Partial pressure] 46 mm[Hg] Normal 42-55 [facility] Comment on above: Order Comment: Speci men Type: VENOUS BLOOD SPECIMENOrdering Facility: [facility] Address: [address] [place] [address] Performed By: #### 2 4344-4 ####[facility] [id number] [place] [address] [place] CO2 adjusted to patient's actual temperature (BldV) [Partial pressure] 46 mmHg Normal 42-55 [facility] Comment on above: Order Comment: Speci men Type: VENOUS BLOOD SPECIMENOrdering Facility: [facility] Address: [address] [place] [address] Performed By: #### 2 4344-4 ####[facility] [id number] [place] [address] [place] Glucose [Mass/Vol] 364 mg/dL High 60-105 [facility] Comment on above: Order Comment: Speci men Type: VENOUS BLOOD SPECIMENOrdering Facility: [facility] Address: [address] [place] [address] Performed By: #### 2 4344-4 ####[facility] [id number] [facility] [place] [id number] [place] HCO3 (Bld) [Moles/Vol] 23 mmol/L Low 24-28 [facility] Comment on above: Order Comment: Speci men Type: VENOUS BLOOD SPECIMENOrdering Facility: [facility] Address: [address] [place] [address] Performed By: #### 2 4344-4 ####[facility] [id number] [place] [address] [place] Hematocrit (Bld) [Volume fraction] 35.9 % Low 39.0-51.0 [facility] Comment on above: Order Comment: Speci men Type: VENOUS BLOOD SPECIMENOrdering Facility: [facility] Address: [address] [place] [address] Performed By: #### 2 4344-4 ####[facility] [id number] [place] [address] [place] Hemoglobin (Bld) [Mass/Vol] 11.6 g/dL Low 13.0-17.0 [facility] Comment on above: Order Comment: Speci men Type: VENOUS BLOOD SPECIMENOrdering Facility: [facility] Address: [address] [place] [address] Performed By: #### 2 4344-4 ####[facility] [id number] [place] [address] [place] Lactate [Moles/Vol] 1.6 mmol/L Normal 0.5-2.2 [facility] Comment on above: Order Comment: Speci men Type: VENOUS BLOOD SPECIMENOrdering Facility: [facility] Address: [address] [place] [address] Performed By: #### 2 4344-4 ####[facility] [id number] [place] [id number] [place] Methemoglobin (Bld) [Mass fraction] 0.9 % Normal 0.0-1.5 [facility] Comment on above: Order Comment: Speci men Type: VENOUS BLOOD SPECIMENOrdering Facility: [facility] Address: [address] [place], [place] [address] Performed By: #### 2 4344-4 ####[facility] [id number] [address] [place] [address] [place] Oxygen (BldV) [Partial pressure] 47 mm[Hg] High 35-45 [facility] Comment on above: Order Comment: Speci men Type: VENOUS BLOOD SPECIMENOrdering Facility: [facility] Address: [address] [place], [place] [address] Performed By: #### 2 4344-4 ####[facility] [id number] [address] [address] [place] Oxygen adjusted to patient's actual temperature (BldV) [Partial pressure] 47 mmHg High 35-45 [facility] Comment on above: Order Comment: Speci men Type: VENOUS BLOOD SPECIMENOrdering Facility: [facility] Address: [address] [place], [place] [address] Performed By: #### 2 4344-4 ####[facility] [id number] [address] [address] [place] Oxygen saturation in Venous blood 79 % Normal 60-85 [facility] Comment on above: Order Comment: Speci men Type: VENOUS BLOOD SPECIMENOrdering Facility: [facility] Address: [address] [place], [place] [address] Performed By: #### 2 4344-4 ####[facility] [id number] [address] [address] [place] Oxyhemoglobin (BldV) [Mass fraction] 76 % Normal 60-85 [facility] Comment on above: Order Comment: Speci men Type: VENOUS BLOOD SPECIMENOrdering Facility: [facility] Address: [address] [place] [address] Performed By: #### 2 4344-4 ####[facility] [id number] [address] [address] [place] pH (BldV) 7.33 [pH] Normal 7.32-7.42 [facility] Comment on above: Order Comment: Speci men Type: VENOUS BLOOD SPECIMENOrdering Facility: [facility] Address: [address] [place], [place] [address] Performed By: #### 2 4344-4 ####[facility] [id number] [address] [place] [address] [place] pH adjusted to patient's actual temperature (BldV) 7.33 Normal 7.32-7.42 [facility] Comment on above: Order Comment: Speci men Type: VENOUS BLOOD SPECIMENOrdering Facility: [facility] Address: [address] [place] [address] Performed By: #### 2 4344-4 ####[facility] [id number] [address] [place] [address] [place] Sodium [Moles/Vol] 137 mmol/L Normal 136-144 [facility] Comment on above: Order Comment: Speci men Type: VENOUS BLOOD SPECIMENOrdering Facility: [facility] Address: [address] [place] [address] Performed By: #### 2 4344-4 ####[facility] [id number] [address] [place] [address] [place] INTRAOPERATIVE ECHO PREon INTRAOPERATIVE ECHO PRE Normal [facility] OPERATIVE NOon 12-25-2024 OPERATIVE NO Normal [facility] Pathology biopsy report Rey (Tiss)on 12-25-2024 ADDENDUM 1: Normal [facility] Comment on above: Order Comment: Speci men Type: TISSUE SPECIMENOrdering Facility: [facility] Address: [address] [place] [address] Result Comment: The elastic nature of the artery in part B is demonstrated in the Movat stain.Addendum electronically signed by Junie Smith MD on 01/04/2025 at 1635 EDT Performed By: #### 6 6121-5 ####[facility] [id number] [place] [id number] AP DISCLAIMER Normal [facility] Comment on above: Order Comment: Speci men Type: TISSUE SPECIMENOrdering Facility: [facility] Address: [address] [place] [address] Result Comment: Del hernandez Developed Test (LDT) Disclaimer:Performance characteristics of immunohistochemical, immunofluorescent, and chromogenic in-situ hybridization tests have been determined by the performing laboratory within [facility] Pathology and Laboratory Medicine Department ([facility], [facility], [facility], [facility], [facility], [facility], or [facility]) in a manner consistent with CLIA requirements. One or more of these tests may not have been cleared or approved by the FDA. RT-PLM is regulated under CLIA as qualified to perform high-complexity testing. These tests are used for clinical purposes. These should not be regarded as investigational or for research. Positive and negative controls stain appropriately. Performed By: #### 6 6121-5 ####[facility] [id number] [address] [place] CASE REPORT Normal [facility] Comment on above: Order Comment: Speci josephine Type: TISSUE SPECIMENOrdering Facility: [facility] Address: [address] [place] [address] Result Comment: [facility] Pathology Report Case: [id number] Provider: Roscoe Arias MD Collected: 12/25/2024 10:20 AMOrdering Location: Admitting Received: 12/25/2024 11:46 AMPathologist: Junie Smith MDSpecimens: A) - Heart, Aortic Valve, Explanted Aortic Valve B) - Aorta Performed By: #### 6 6121-5 ####[facility]CLIA [id number] [address] [place] CLINICAL HISTORY Normal [facility] Comment on above: Order Comment: Speci men Type: TISSUE SPECIMENOrdering Facility: [facility] Address: [address] [place] [address] Result Comment: Pre- op diagnosis:Type 1 diabetes mellitus without complication (HCC) [E10.9]Acquired hypothyroidism [E03.9]Pre-operative cardiovascular examination [Z01.810]Aortic valve disorder [I35.9] Performed By: #### 6 6121-5 ####[facility]CLIA [id number] [address] DIAGNOSIS COMMENT Normal [facility] Comment on above: Order Comment: Speci men Type: TISSUE SPECIMENOrdering Facility: [facility] Address: [address] [place] [address] Performed By: #### 6 6121-5 ####[facility] [id number] [address] FINAL DIAGNOSIS Normal [facility] Comment on above: Order Comment: Speci men Type: TISSUE SPECIMENOrdering Facility: [facility] Address: [address] [place] [address] Result Comment: A. A ortic valve, excision:- Bioprosthetic valve with mild pannus formation (gross examination only).ERR/HMZB. 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 See comment. at 1725 EDT Performed By: #### 6 6121-5 ####[facility]CL[facility] [id number] [address] FINAL PERFORMING LAB Normal [facility] Comment on above: Order Comment: Speci men Type: TISSUE SPECIMENOrdering Facility: [facility] Address: [address] [place] [address] Result Comment: Diag nostic interpretation performed at: [facility], [address] [place] [address] CLIA# [id number] Director: Marvin Hodges MD Performed By: #### 6 6121-5 ####[facility] [id number] [place] [address] [place] GROSS DESCRIPTION Normal [facility] Comment on above: Order Comment: Speci men Type: TISSUE SPECIMENOrdering Facility: [facility] Address: [address] [place] [address] Result Comment: Emilia Taylor tanner, Aortic ValveReceived in formalin labeled explanted aortic valve is a bovine bioprosthetic valve measuring 2.5 cm in diameter. The leaflets are mobile. A mild amount of pannus formation on one leaflet is present. There are no calcifications or perforations. No sections are submitted. The specimen is reviewed with Dr. Smith.Yvonne. AortaReceived in formalin labeled ???aorta??? is a tubular segment of tissue measuring 1.5 cm in length by 2.0 cm in diameter. There is fibroadipose tissue surrounding it. There is no synthetic graft material present. The lumen shows no thrombosis upon serial sectioning. [place] vascular tissue consistent with artery is present, and an anastomotic line is noted. The external surface is mildly hemorrhagic. Supervisor Insulation sections are submitted in one cassette.[facility] 12/25/24 5:07 PMGross examination performed at [facility], [address] [place] [address] Performed By: #### 6 6121-5 ####[facility]CL[facility] [id number] [place] [address] [place] Platelets Auto (Bld) [#/Vol] on 12-25-2024 Platelets (Bld) [#/Vol] 116 10*3/uL Low 150-400 [facility] Comment on above: Order Comment: Speci men Type: BLOOD SPECIMENOrdering Facility: [facility] Address: [address] [place] [address] Performed By: #### 7 77-3 ####[facility] [id number] [place] [address] [place] STAPHYLOCOCCUS AUREUS AND MR SA SCREEN, PCR, NASALon 12-25-2024 S. aureus and MRSA panel VAISHALI+probe (Nose) Not detected Normal Not Detected [facility] Comment on above: Order Comment: Speci men Type: SWABOrdering Facility: [facility] Address: [address] [place] [address] Performed By: #### S APCR ####[facility] [id number] [place] [address] [place] THROMBOGRAPH HEPARINASE PANE Manan 12-25-2024 Clot angle after addition of heparinase TEG (Bld) [Angle] 62.0 degrees Normal 47.0-74.0 [facility] Comment on above: Order Comment: Speci men Type: BLOOD SPECIMENOrdering Facility: [facility] Address: [address] [place] [address] Performed By: #### T EGHPP ####[facility] [id number] [place] [address] [place] Clot Lysis 30 Min post maximum clot amplitude TEG (Bld) [Length fraction] 0.0 % Normal 0.0-8.0 [facility] Comment on above: Order Comment: Speci men Type: BLOOD SPECIMENOrdering Facility: [facility] Address: [address] [place] [address] Performed By: #### T EGHPP ####[facility] [id number] [place] [address] [place] Clotting time after addition of heparinase TEG (Bld) 6.2 minutes Normal 4.0-10.0 [facility] Comment on above: Order Comment: Speci men Type: BLOOD SPECIMENOrdering Facility: [facility] Address: [address] [place] [address] Performed By: #### T EGHPP ####[facility] [id number] [place] [id number] [place] Coagulation index TEG Qn (Bld) -1.3 Normal -4.6-3.2 [facility] Comment on above: Order Comment: Speci men Type: BLOOD SPECIMENOrdering Facility: [facility] Address: [address] [place] [address] Result Comment: This test was developed, and its performance characteristics determined by the [facility] Department of Pathology and Laboratory Medicine. It has not been cleared or approved by the FDA. The [facility] Department of Pathology and Laboratory Medicine is regulated under CLIA as qualified to perform high-complexity testing. This test is used for clinical purposes. It should not be regarded as investigational or for research. Performed By: #### T EGHPP ####[facility]CL[facility] [id number] [facility] [address] [place] Maximum clot firmness after addition of heparinase TEG (Bld) [Length] 55.3 mm Normal 51.0-75.0 [facility] Comment on above: Order Comment: Moses burton Type: BLOOD SPECIMENOrdering Facility: [facility] Address: [address] [place] [address] Performed By: #### T EGHPP ####[facility] [id number] [address] [place] Thromboelastography after addtion of heparinase panel (Bld) Normal [facility] Comment on above: Order Comment: Moses burton Type: BLOOD SPECIMENOrdering Facility: [facility] Address: [address] [place] [address] Result Comment: A th romboelastograph (TEG) study was performed using a citrate-anticoagulated whole blood treated with heparinase to neutralize a heparin effect.The R value decreased to between 4.0 and 10.0 minutes after sample treatment with heparinase. This is consistent with heparin therapy with adequate residual hemostasis. The angle, a measure of fibrinogen function, is within normal range. This is indicative of normal fibrinogen concentration or function. The Maximal Amplitude (MA), a measure of platelet function, is within the normal range. The Ly30, a measure of fibrinolysis, is normal. This is indicative of normal fibrinolytic function. The coagulation index (CI), a measure of hemostasis function, is within the normal range. The CI is a calculated parameter based on the other TEG results.Viscoelastic testing is not intended for the monitoring of anticoagulation or antiplatelet medications or the diagnosis and/or management of platelet disorders and/or coagulopathies but may be useful for guiding blood product utilization in emergency and urgent (OR) circumstances when routine coagulation and cell blood counts are not available in a timely manner. Performed By: #### T EGHPP ####[facility] [id number] [place] [address] [place] XR CHEST 1V FRONTAL PORTon 0 12-25-2024 XR CHEST 1V FRONTAL PORT Normal [facility] CARD CATH DIAGNOSTICon 12-24 CARD [facility]NOSTIC [facility] CNPNon 12-23-2024 CNPN Normal [facility] CNCNPATEDon 12-20-2024 CNCNPATED Normal [facility] CNOVon 12-20-2024 CNOV Normal [facility] CNOV Normal [facility] CNOV Normal [facility] STAPHYLOCOCCUS AUREUS AND MR SA SCREEN, PCR, NASALon 12-20-2024 S. aureus and MRSA panel VAISHALI+probe (Nose) Not detected Normal Not Detected [facility] Comment on above: Order Comment: Speci men Type: SWABOrdering Facility: [facility] Address: [address] [place] [address] Performed By: #### S APCR ####[facility] [id number] [place] [address] [place] CBC W Auto Differential pane l (Bld)on 12-19-2024 Basophils (Bld) [#/Vol] 0.12 10*3/uL High <0.11 [facility] Comment on above: Order Comment: Speci men Type: BLOOD SPECIMENOrdering Facility: [facility] Address: [address] [place] [address] Performed By: #### 5 7021-8 ####[facility] [id number] [place] [address] [place] Basophils/100 WBC (Bld) 1.9 % Normal [facility] Comment on above: Order Comment: Speci men Type: BLOOD SPECIMENOrdering Facility: [facility] Address: [address] [place] [address] Performed By: #### 5 7021-8 ####[facility]CL[facility] [id number] [place] [address] [place] Differential cell count method Nom (Bld) Auto Normal [facility] Comment on above: Order Comment: Speci men Type: BLOOD SPECIMENOrdering Facility: [facility] Address: [address] [place] [address] Performed By: #### 5 7021-8 ####[facility]CL[facility] [id number] [place] [address] [place] Eosinophils (Bld) [#/Vol] 0.30 10*3/uL Normal <0.46 [facility] Comment on above: Order Comment: Speci men Type: BLOOD SPECIMENOrdering Facility: [facility] Address: [address] [place] [address] Performed By: #### 5 7021-8 ####[facility] [id number] [place] [address] [place] Eosinophils/100 WBC (Bld) 4.7 % Normal [facility] Comment on above: Order Comment: Speci men Type: BLOOD SPECIMENOrdering Facility: [facility] Address: [address] [place] [address] Performed By: #### 5 7021-8 ####[facility] [id number] [place] [address] [place] Erythrocyte distribution width (RBC) [Ratio] 12.2 % Normal 11.5-15.0 [facility] Comment on above: Order Comment: Speci men Type: BLOOD SPECIMENOrdering Facility: [facility] Address: [address] [place] [address] Performed By: #### 5 7021-8 ####[facility]CL[facility] [id number] [place] [address] [place] Hematocrit (Bld) [Volume fraction] 43.3 % Normal 39.0-51.0 [facility] Comment on above: Order Comment: Speci men Type: BLOOD SPECIMENOrdering Facility: [facility] Address: [address] [place] [address] Performed By: #### 5 7021-8 ####[facility]CL[facility] [id number] [place] [address] [place] Hemoglobin (Bld) [Mass/Vol] 14.7 g/dL Normal 13.0-17.0 [facility] Comment on above: Order Comment: Speci men Type: BLOOD SPECIMENOrdering Facility: [facility] Address: [address] [place] [address] Performed By: #### 5 7021-8 ####[facility] [id number] [place] [address] [place] Immature granulocytes (Bld) [#/Vol] 10*3/uL Normal <0.10 [facility] Comment on above: Order Comment: Speci men Type: BLOOD SPECIMENOrdering Facility: [facility] Address: [address] [place] [address] Performed By: #### 5 7021-8 ####[facility] [id number] [place] [address] [place] Immature granulocytes/100 WBC (Bld) 0.2 % Normal [facility] Comment on above: Order Comment: Speci men Type: BLOOD SPECIMENOrdering Facility: [facility] Address: [address] [place] [address] Performed By: #### 5 7021-8 ####[facility] [id number] [place] [address] [place] Lymphocytes (Bld) [#/Vol] 2.15 10*3/uL Normal 1.00-4.00 [facility] Comment on above: Order Comment: Speci men Type: BLOOD SPECIMENOrdering Facility: [facility] Address: [address] [place] [address] Performed By: #### 5 7021-8 ####[facility] [id number] [address], [place] [address] [place] Lymphocytes/100 WBC (Bld) 33.4 % Normal [facility] Comment on above: Order Comment: Speci men Type: BLOOD SPECIMENOrdering Facility: [facility] Address: [address] [place] [address] Performed By: #### 5 7021-8 ####[facility] [id number] [address], [place] [address] [place] MCH (RBC) [Entitic mass] 30.1 pg Normal 26.0-34.0 [facility] Comment on above: Order Comment: Speci men Type: BLOOD SPECIMENOrdering Facility: [facility] Address: [address] [place] [address] Performed By: #### 5 7021-8 ####[facility] [id number] [address], [place] [address] [place] MCHC (RBC) [Mass/Vol] 33.9 g/dL Normal 30.5-36.0 [facility] Comment on above: Order Comment: Speci men Type: BLOOD SPECIMENOrdering Facility: [facility] Address: [address] [place] [address] Performed By: #### 5 7021-8 ####[facility] [id number] [address], [facility] [place] MCV (RBC) [Entitic vol] 88.7 fL Normal 80.0-100.0 [facility] Comment on above: Order Comment: Speci men Type: BLOOD SPECIMENOrdering Facility: [facility] Address: [address] [place] [address] Performed By: #### 5 7021-8 ####[facility] [id number] [address], [facility] [place] Monocytes (Bld) [#/Vol] 0.64 10*3/uL Normal <0.87 [facility] Comment on above: Order Comment: Speci men Type: BLOOD SPECIMENOrdering Facility: [facility] Address: [address] [place] [address] Performed By: #### 5 7021-8 ####[facility] [id number] [place] [address] [place] Monocytes/100 WBC (Bld) 10.0 % Normal [facility] Comment on above: Order Comment: Speci men Type: BLOOD SPECIMENOrdering Facility: [facility] Address: [address] [place] [address] Performed By: #### 5 7021-8 ####[facility] [id number] [place] [address] [place] Neutrophils (Bld) [#/Vol] 3.21 10*3/uL Normal 1.45-7.50 [facility] Comment on above: Order Comment: Speci men Type: BLOOD SPECIMENOrdering Facility: [facility] Address: [address] [place] [address] Performed By: #### 5 7021-8 ####[facility] [id number] [place] [address] [place] Neutrophils/100 WBC (Bld) 49.8 % Normal [facility] Comment on above: Order Comment: Speci men Type: BLOOD SPECIMENOrdering Facility: [facility] Address: [address] [place] [address] Performed By: #### 5 7021-8 ####[facility] [id number] [place] [address] [place] Nucleated RBC (Bld) [#/Vol] 10*3/uL Normal <0.01 [facility] Comment on above: Order Comment: Speci men Type: BLOOD SPECIMENOrdering Facility: [facility] Address: [address] [place] [address] Performed By: #### 5 7021-8 ####[facility] [id number] [place] [address] [place] Nucleated RBC/100 WBC (Bld) [Ratio] 0.0 /100 WBC Normal [facility] Comment on above: Order Comment: Speci men Type: BLOOD SPECIMENOrdering Facility: [facility] Address: [address] [place] [address] Performed By: #### 5 7021-8 ####[facility] [id number] [place] [address] [place] Platelet mean volume (Bld) [Entitic vol] 9.7 fL Normal 9.0-12.7 [facility] Comment on above: Order Comment: Speci men Type: BLOOD SPECIMENOrdering Facility: [facility] Address: [address] [place] [address] Performed By: #### 5 7021-8 ####[facility] [id number] [place] [address] [place] Platelets (Bld) [#/Vol] 209 10*3/uL Normal 150-400 [facility] Comment on above: Order Comment: Speci men Type: BLOOD SPECIMENOrdering Facility: [facility] Address: [address] [place] [address] Performed By: #### 5 7021-8 ####[facility] [id number] [place] [address] [place] RBC (Bld) [#/Vol] 4.88 10*6/uL Normal 4.20-6.00 [facility] Comment on above: Order Comment: Speci men Type: BLOOD SPECIMENOrdering Facility: [facility] Address: [address] [place] [address] Performed By: #### 5 7021-8 ####[facility] [id number] [address] [address] [place] WBC (Bld) [#/Vol] 6.43 10*3/uL Normal 3.70-11.00 [facility] Comment on above: Order Comment: Speci men Type: BLOOD SPECIMENOrdering Facility: [facility] Address: [address] [place] [address] Performed By: #### 5 7021-8 ####[facility] [id number] [address] [address] [place] CNOVon 12-19-2024 CNOV Normal [facility] metabolic 2000 panelon 12-19-2024 Albumin [Mass/Vol] 4.3 g/dL Normal 3.9-4.9 [facility] Comment on above: Order Comment: Speci men Type: BLOOD SPECIMENOrdering Facility: [facility] Address: [address] [place] [address] Performed By: #### 2 4323-8, 3016-3, 2532-0 ####[facility] [id number] [place] [address] [place] ALP [Catalytic activity/Vol] 69 U/L Normal 38-113 [facility] Comment on above: Order Comment: Speci men Type: BLOOD SPECIMENOrdering Facility: [facility] Address: [address] [place] [address] Performed By: #### 2 4323-8, 3016-3, 2532-0 ####[facility] [id number] [address] [address] [place] ALT [Catalytic activity/Vol] 24 U/L Normal 10-54 [facility] Comment on above: Order Comment: Speci men Type: BLOOD SPECIMENOrdering Facility: [facility] Address: [address] [place] [address] Performed By: #### 2 4323-8, 3016-3, 2532-0 ####[facility] [id number] [address] [address] [place] Anion gap [Moles/Vol] 10 mmol/L Normal 8-15 [facility] Comment on above: Order Comment: Speci men Type: BLOOD SPECIMENOrdering Facility: [facility] Address: [address] [place] [address] Performed By: #### 2 4323-8, 3016-3, 2532-0 ####[facility] [id number] [place] [id number] [place] AST [Catalytic activity/Vol] 30 U/L Normal 14-40 [facility] Comment on above: Order Comment: Speci men Type: BLOOD SPECIMENOrdering Facility: [facility] Address: [address] [place] [address] Performed By: #### 2 4323-8, 3016-3, 2532-0 ####[facility] [id number] [place] [id number] [place] Bilirubin [Mass/Vol] 0.7 mg/dL Normal 0.2-1.3 [facility] Comment on above: Order Comment: Speci men Type: BLOOD SPECIMENOrdering Facility: [facility] Address: [address] [place] [address] Performed By: #### 2 4323-8, 3016-3, 2532-0 ####[facility] [id number] [address] [address] [place] Calcium [Mass/Vol] 9.8 mg/dL Normal 8.5-10.2 [facility] Comment on above: Order Comment: Speci men Type: BLOOD SPECIMENOrdering Facility: [facility] Address: [address] [place] [address] Performed By: #### 2 4323-8, 3016-3, 2532-0 ####[facility] [id number] [address] [address] [place] Chloride [Moles/Vol] 105 mmol/L Normal 98-107 [facility] Comment on above: Order Comment: Speci men Type: BLOOD SPECIMENOrdering Facility: [facility] Address: [address] [place], [place] [address] Performed By: #### 2 4323-8, 3016-3, 2532-0 ####[facility] [id number] [place] [id number] [place] CO2 [Moles/Vol] 28 mmol/L Normal 22-30 [facility] Comment on above: Order Comment: Speci men Type: BLOOD SPECIMENOrdering Facility: [facility] Address: [address] [place] [address] Performed By: #### 2 4323-8, 3016-3, 2532-0 ####[facility] [id number] [place] [id number] [place] Creatinine [Mass/Vol] 0.85 mg/dL Normal 0.73-1.22 [facility] Comment on above: Order Comment: Speci men Type: BLOOD SPECIMENOrdering Facility: [facility] Address: [address] [place] [address] Performed By: #### 2 4323-8, 3016-3, 2532-0 ####[facility] [id number] [place] [id number] [place] [facility] Creatinine and Glomerular filtration rate.predicted panel (S/P/Bld) 109 mL/min/1.73m??? Normal >=60 [facility] Comment on above: Order Comment: Speci men Type: BLOOD SPECIMENOrdering Facility: [facility] Address: [address] [place], [place] [address] Result Comment: Rosanna mated Glomerular Filtration Rate (eGFR) is calculated using the 2020 CKD-EPI creatinine equation. This equation utilizes serum creatinine, sex, and age as parameters. The creatinine assay has traceable calibration to isotope dilution-mass spectrometry. Refer to KDIGO guidelines for clinical interpretation. In patients with unstable renal function, e.g. those with acute kidney injury, the eGFR may not accurately reflect actual GFR. Performed By: #### 2 4323-8, 3015-3, 2531-0 ####[facility] [id number] [facility] [id number] [place] [address] [place] Glucose [Mass/Vol] 100 mg/dL High 74-99 [facility] Comment on above: Order Comment: Speci men Type: BLOOD SPECIMENOrdering Facility: [facility] Address: [address] [place] [address] Result Comment: The [place] [employer] (ADA) provides guidance for cutoff values for fasting glucose and random glucose. The ADA defines fasting as no caloric intake for at least 8 hours. Fasting plasma glucose results between 100 to 125 mg/dL indicate increased risk for diabetes (prediabetes).Fasting plasma glucose results greater than or equal to 126 mg/dL meet the criteria for diagnosis of diabetes. In the absence of unequivocal hyperglycemia, results should be confirmed by repeat testing. In a patient with classic symptoms of hyperglycemia or hyperglycemic crisis, random plasma glucose results greater than or equal to 200 mg/dL meet the criteria for diagnosis of diabetes.Reference: Standards of Medical Care in Diabetes 2016, [place] Diabetes Association. Diabetes Care. 2016.39(Suppl 1). Performed By: #### 2 4323-8, 3015-09, 0 ####[facility] LABCLIA [id number] [facility] [place] [address] [address] [place] Potassium [Moles/Vol] 4.6 mmol/L Normal 3.7-5.1 [facility] Comment on above: Order Comment: Moses men Type: BLOOD SPECIMENOrdering Facility: [facility] Address: [address] [place] [address] Performed By: #### 2 4323-8, 3015-3, 2531-0 ####[facility] LABCLIA [id number] [facility]IT[facility] AVENUEDES[address] [id number], [place] [address] [place] Protein [Mass/Vol] 6.5 g/dL Normal 6.3-8.0 [facility] Comment on above: Order Comment: Speci men Type: BLOOD SPECIMENOrdering Facility: [facility] Address: [address] [place] [address] Performed By: #### 2 4323-8, 3015-3, 2-0 ####[facility] LABCLIA [id number] [facility] [address] [place] [address] [place] Sodium [Moles/Vol] 143 mmol/L Normal 136-144 [facility] Comment on above: Order Comment: Speci men Type: BLOOD SPECIMENOrdering Facility: [facility] Address: [address] [place], [place] [address] Performed By: #### 2 4323-8, 3, 2531-0 ####[facility]CL[facility] [id number] [address] [address] [place] Urea nitrogen [Mass/Vol] 16 mg/dL Normal 9-24 [facility] Comment on above: Order Comment: Speci men Type: BLOOD SPECIMENOrdering Facility: [facility] Address: [address] [place], [place] [address] Performed By: #### 2 4323-8, 3015-09, 2531-0 ####[facility] LABCLIA [id number] [facility] [address] [place] [address] [place] ECG COMPLETEon 12-19-2024 ECG COMPLETE Normal [facility] HbA1c (Bld)on 12-19-2024 Average glucose Estimated from glycated hemoglobin (Bld) [Mass/Vol] 146 mg/dL Normal [facility] Comment on above: Order Comment: Speci men Type: BLOOD SPECIMENOrdering Facility: [facility] Address: [address] [place] [address] Result Comment: eAG: (Estimated average glucose) is a calculated value from HgbA1c and is contact representative of the average blood glucose level in the last 2-3 month period. Performed By: #### 5 5454-3 ####[facility] LABCLIA [id number] [place] [address] [place] HbA1c (Bld) [Mass fraction] 6.7 % High 4.3-5.6 [facility] Comment on above: Order Comment: Moses burton Type: BLOOD SPECIMENOrdering Facility: [facility] Address: [address] [place] [address] Result Comment: Amer ican Diabetes Association guidelines indicate that patients with HgbA1c in the range 5.7-6.4% are at increased risk for development of diabetes, and intervention by lifestyle modification may be beneficial. HgbA1c greater or equal to 6.5% is considered diagnostic of diabetes. Performed By: #### 5 5454-3 ####[facility] [id number] [place] [address] [place] LDH SerPl-cCncon 12-19-2024 LDH [Catalytic activity/Vol] 303 U/L High 135-225 [facility] Comment on above: Order Comment: Moses burton Type: BLOOD SPECIMENOrdering Facility: [facility] Address: [address] [place] [address] Performed By: #### 2 4323-8, 3016-3, 2532-0 ####[facility] LABIA [id number] [place] [address] [place] LPa SerPl-mCncon 12-19-2024 Lipoprotein a [Mass/Vol] 63 mg/dL High <30 [facility] Comment on above: Order Comment: Moses burton Type: BLOOD SPECIMENOrdering Facility: [facility] Address: [address] [place] [address] Performed By: #### 1 0835-7 ####[facility] LABIA [id number] [place] [address] [place] LUNG DIFFUSION CAPACITY (JONATAN O)on 12-19-2024 LUNG DIFFUSION CAPACITY (DLCO) Normal [facility] PT panel Coag (PPP)on 2024 INR Coag (PPP) [Relative time] 1.0 {INR} Normal 0.9-1.3 [facility] Comment on above: Order Comment: Moses burton Type: BLOOD SPECIMENOrdering Facility: [facility] Address: [address] [place] [address] Result Comment: Humaira min K Antagonist (VKA) Therapeutic Range: INR 2 to 3 (Target INR of 2.5)Note: For patients treated with VKA drugs, such as warfarin, the [place] College [employer]icians 2012 Guideline recommends a therapeutic INR range of 2 to 3 (target INR of 2.5). This recommendation includes high-risk patients with antiphospholipid syndrome with previous arterial or venous thromboembolism, current-generation mechanical or bioprosthetic aortic heart valve replacement.Note: Patients with mechanical aortic valve replacement and additional risk factors for thromboembolic events (atrial fibrillation, previous thromboembolism, LV dysfunction, hypercoagulable conditions) or an older generation mechanical AVR (i.e., ball in-Cage) or any mechanical MVR should have a INR therapeutic range of 2.5 to 3.5 (target INR of 3).Delores GH, et al. Chest 2012, 141:7S-47SNishimura RA, et al. [facility] 2017, 70: 252-289 Performed By: #### 3 4528-0, 95630-5 ####[facility] HOSPITALIA [id number] [place] [address] [place] PT Coag (PPP) [Time] 11.1 s Normal 9.7-13.0 [facility] Comment on above: Order Comment: Moses burton Type: BLOOD SPECIMENOrdering Facility: [facility] Address: [address] [place] [address] Performed By: #### 3 4528-0, 86785-6 ####[facility] LABIA [id number] [place] [address] [place] PVR ANK PRESS CORRIE VAS LABon 12-19-2024 PVR ANK PRESS CORRIE VAS LAB Normal [facility] SPIROMETRY BASELINE ONLYon 0 12-19-2024 SPIROMETRY BASELINE ONLY Normal [facility] TSH SerPl-aCncon 12-19-2024 TSH Qn 0.915 m[IU]/L Normal 0.270-4.200 [facility] Comment on above: Order Comment: Speci men Type: BLOOD SPECIMENOrdering Facility: [facility] Address: [address] [place] [address] Performed By: #### 2 4323-8, 3016-3, 2532-0 ####[facility]CLIA [id number] [place] [address] [place] TYPE AND SCREEN,30 DAYon ABO A Normal [facility] Comment on above: Order Comment: Speci men Type: BLOOD SPECIMENOrdering Facility: [facility] Address: [address] [place] [address] Performed By: #### T SCR30 ####[facility] BLOOD BANKIA [id number] [place] [address] [place] Rh Nom (Bld) Positive Normal [facility] Comment on above: Order Comment: Speci men Type: BLOOD SPECIMENOrdering Facility: [facility] Address: [address] [place] [address] Performed By: #### T SCR30 ####[facility] BLOOD BANKCLIA [id number] [place] [address] [place] URINALYSIS, DIPSTICK ONLYon 12-19-2024 Bilirubin Ql (U) Negative Normal Negative [facility] Comment on above: Order Comment: Speci men Type: URINE SPECIMENOrdering Facility: [facility] Address: [address] [place] [address] Performed By: #### U A ####[facility] LABCLIA [id number] [place] [address] [place] Clarity (Unsp spec) Clear Normal Clear [facility] Comment on above: Order Comment: Speci men Type: URINE SPECIMENOrdering Facility: [facility] Address: [address] [place] [address] Performed By: #### U A ####[facility] LABCLIA [id number] [address] [place] [address] [place] Color (U) Yellow Normal Yellow [facility] Comment on above: Order Comment: Speci men Type: URINE SPECIMENOrdering Facility: [facility] Address: [address] [place] [address] Performed By: #### U A ####[facility]CLIA [id number] [place] [address] [place] Glucose Test strip (U) [Mass/Vol] Negative Normal Negative [facility] Comment on above: Order Comment: Speci men Type: URINE SPECIMENOrdering Facility: [facility] Address: [address] [place] [address] Performed By: #### U A ####[facility]CLIA [id number] [place] [address] [place] Hemoglobin Ql (U) Negative Normal Negative [facility] Comment on above: Order Comment: Speci men Type: URINE SPECIMENOrdering Facility: [facility] Address: [address] [place] [address] Performed By: #### U A ####[facility]CLIA [id number] [address] [place] Ketones Ql (U) Negative Normal Negative [facility] Comment on above: Order Comment: Speci men Type: URINE SPECIMENOrdering Facility: [facility] Address: [address] [place] [address] Performed By: #### U A ####[facility] LABCLIA [id number] [place] [id number] [place] Leukocyte esterase Test strip Ql (U) Negative Normal Negative [facility] Comment on above: Order Comment: Speci men Type: URINE SPECIMENOrdering Facility: [facility] Address: [address] [place] [address] Performed By: #### U A ####[facility] LABCLIA [id number] [place] [id number] [place] Nitrite Ql (U) Negative Normal Negative [facility] Comment on above: Order Comment: Speci men Type: URINE SPECIMENOrdering Facility: [facility] Address: [address] [place] [address] Performed By: #### U A ####[facility] LABIA [id number] [address], [facility] [place] pH (U) 8.0 [pH] Normal <8.5 [facility] Comment on above: Order Comment: Speci men Type: URINE SPECIMENOrdering Facility: [facility] Address: [address] [place] [address] Performed By: #### U A ####[facility] LABIA [id number] [place] [address] [place] Protein (U) [Mass/Vol] Negative Normal Negative [facility] Comment on above: Order Comment: Speci men Type: URINE SPECIMENOrdering Facility: [facility] Address: [address] [place] [address] Performed By: #### U A ####[facility] LABIA [id number] [place] [address] [place] Specific gravity (U) [Rel density] 1.014 Normal 1.005-1.030 [facility] Comment on above: Order Comment: Speci men Type: URINE SPECIMENOrdering Facility: [facility] Address: [address] [place] [address] Performed By: #### U A ####[facility] LABIA [id number] [place] [id number] [place] Urobilinogen Ql (U) 1.0 EU/dL Normal 0.2-1.0 EU/dL [facility] Comment on above: Order Comment: Speci men Type: URINE SPECIMENOrdering Facility: [facility] Address: [address] [place] [address] Performed By: #### U A ####[facility] LABCLIA [id number] [place] [id number] [place] US CAROTID ARTERIES CORRIE VAS LABon 12-19-2024 US CAROTID ARTERIES CORRIE VAS LAB Normal [facility] XR CHEST 2V FRONTAL/LATon XR CHEST 2V FRONTAL/LAT Normal [facility] XR Chest PA and Lateralon IMPRESSION: No acute radiographic abnormality. Journeyman Pipefitter: PSCB Transcribe Date/Time: Dec 19 2024 2:34P Dictated by : CARO ESPAÑA MD This examination was interpreted and the report reviewed and electronically signed by: CARO ESPAÑA MD on Dec 19 2024 2:35PM [facility] DIVISION OF RADIOLOGY * * *Final Report* * * DATE OF EXAM: Dec 19 2024 11:48AM [id number] - XR CHEST 2V FRONTAL/LAT / PROCEDURE REASON: multiple diagnoses * * * * Physician Interpretation * * * * EXAMINATION: CHEST RADIOGRAPH (2 VIEW FRONTAL & LATERAL) CLINICAL HISTORY: Type 1 diabetes mellitus without complication (HCC) Acquired hypothyroidism Pre-operative cardiovascular examination Aortic valve disorder MQ: XC2_6 EXAM DATE/TIME: 12/19/2024 11:48 AM COMPARISON: 03/27/2024 RESULT: Lines, tubes, and devices: The patient is status post median sternotomy with aortic valve replacement and tricuspid annuloplasty. Lungs and pleura: Trace bilateral pleural effusions are noted posteriorly. No consolidation. No pneumothorax. Cardiomediastinal silhouette: Normal cardiomediastinal silhouette. Bones and soft tissues: Mild degenerative changes are noted in the thoracic spine. DIVISION OF RADIOLOGY Provider, [facility] - 12/19/2024 * * *Final Report* * * DATE OF EXAM: Dec 19 2024 11:48AM [id number] - XR CHEST 2V FRONTAL/LAT / PROCEDURE REASON: multiple diagnoses * * * * Physician Interpretation * * * * EXAMINATION: CHEST RADIOGRAPH (2 VIEW FRONTAL & LATERAL) CLINICAL HISTORY: Type 1 diabetes mellitus without complication (HCC) Acquired hypothyroidism Pre-operative cardiovascular examination Aortic valve disorder MQ: XC2_6 EXAM DATE/TIME: 12/19/2024 11:48 AM COMPARISON: 03/27/2024 RESULT: Lines, tubes, and devices: The patient is status post median sternotomy with aortic valve replacement and tricuspid annuloplasty. Lungs and pleura: Trace bilateral pleural effusions are noted posteriorly. No consolidation. No pneumothorax. Cardiomediastinal silhouette: Normal cardiomediastinal silhouette. Bones and soft tissues: Mild degenerative changes are noted in the thoracic spine. IMPRESSION IMPRESSION: No acute radiographic abnormality. Journeyman Pipefitter: PSCB Transcribe Date/Time: Dec 19 2024 2:34P Dictated by : CARO ESPAÑA MD This examination was interpreted and the report reviewed and electronically signed by: CARO ESPAÑA MD on Dec 19 2024 2:35PM EST [facility] Radiology Study observation (narrative) [facility] XR Chest PA and LateralOrder ed By: Ccf Provider on 12-19-2024 [facility] aPTT PPPon 12-19-2024 aPTT Coag (PPP) [Time] 25.5 s Normal 23.0-32.4 [facility] Comment on above: Order Comment: Speci men Type: BLOOD SPECIMENOrdering Facility: [facility] Address: [address] [place] [address] Performed By: #### 3 4528-0, 90877-3 ####[facility] LABCLIA [id number] [place] [address] [place] Cerv Spine 4 or 5 Viewson Cerv Spine 4 or 5 Views [facility] Imaging Services [address] [place] [address] Cerv Spine 4 or 5 Views MR#: [id number] Acct: [id number] Name: LUISITO ZHONG Rep #: [id number] : 1980 M 44 From: Ramses Angel MD PCP: ROSCOE UMANZOR Status: REG CLI Study: Cerv Spine 4 or 5 Views Date of Exam: 12/12/24 Exam# [id number] Ordering Dr: Freddy Mujica MD PROCEDURE: CERV SPINE 4 OR 5 VIEWS 12/12/2024 REASON FOR EXAM: NECK AND R ARM PAIN TECHNIQUE: 6 views of the cervical spine. COMPARISON: None FINDINGS: Vertebral body heights are maintained. There is straightening of the normal cervical lordosis. Anpp-fm-ochxcfln multilevel disc height loss, endplate osteophyte formation, with uncovertebral and facet arthropathy. These changes are worst at C6-7 where there is at least mild osseous neural foraminal narrowing bilaterally. The odontoid view is unremarkable. Median sternotomy wires are partially imaged. RAD/Cerv Spine 4 or 5 Views IMPRESSION: 1. Zoce-zj-vyebzkuy degenerative changes of the cervical spine, worst at C6-7. 2. Straightening of the normal cervical lordosis may be related to pain, positioning, or spasm Reading Location: [id number] CC: Dr. Freddy Mujica MD; ROSCOE UMANZOR Journeyman Pipefitter: Signed Normal [facility] CNPNon 12-07-2024 CNPN Normal [facility] CNPNon 12-04-2024 CNPN Normal [facility] CNOVon 11-30-2024 CNOV Normal [facility] CNPNon 11-22-2024 CNPN Normal [facility] CNCOon 11-20-2024 CNCO Letter Text Normal [facility] CNOVon 11-20-2024 CNOV Normal [facility] CNOV Normal [facility] CREATININE, BLOOD (POC)on Creatinine [Mass/Vol] 1 mg/dL 0.7 - 1.4 mg/dL [facility] eGFR (POCT) mL/min/1.73 m2 [facility] Location:Radiology [facility], [address] [place] [address], [facility] Adults (18+): eGFR is calculated using the 2020 CKD-EPI Creatinine Equation. Pediatric patients (<18): eGFR should be clinically calculated using the 2020 Tian Equation. The National Kidney Foundation provides online calculators. [facility] POINT OF CARE [facility] CTA CHEST (GATED) W IVCONon 11-20-2024 CTA CHEST (GATED) W IVCON Normal [facility] ECHO TRANSESOPHAGEALon 11-20 ECHO TRANSESOPHAGEAL Normal [facility] NURSING PROGon 11-20-2024 NURSING PROG Normal [facility] CNPNon 11-13-2024 CNPN Normal [facility] CNPNon 11-05-2024 CNPN Normal [facility] ECG 12 lead - CLINIC PERFORM EDon 08-24-2024 Sinus Rhythm [facility] Office Visiton 08-24-2024 Follow-up visit [id number] Italia Zhong siva S 1980 M Date Provider Department Center 08/24/2024 [id number]-HHUFVGBERIN MORRIS [facility] NEOCS G None Family History Problem Relation Age of Onset Colon cancer Maternal Grandmother No Known Problems Father No Known Problems Mother Other Sister Comments: MS Heart disease Paternal Grandmother Family Status - Relation Status Age at Maternal Grandmother Father Alive Mother Alive Sister Alive Paternal Grandmother Maternal Grandfather Paternal Grandfather Level of Service:18624 IA OFFICE/OUTPATIENT ESTABLISHED MOD MDM 30 MIN Reason for Visit and Comments: New Patient [542] Coronary Artery Disease [187] - Aortic Valve disease and AVR Normal [facility] SH[facility] Progress Noteon 08-24-2024 Progress Note [facility] Cardiov ascular Group Cardiology Note Assessment and Plan: # 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 He is re-presenting with dyspnea and an echo done at [place] that reports elevated gradients (30 mmHg) across the LVOT. Unfortunately we have had significant challenges getting the images and have not had an opportunity for personal review. On examination there is a crescendo murmur across the aortic area, this did not change with the valsalva maneuver. I am suspicious that the primary issue would be recurrent membrane, with his prior anatomy it seems unlikely that this is CARLOS or muscular hypertrophy resulting in elevated LVOT gradient, and PrAV degeneration seems significantly less likely at this time point. I agree that the next step in management is LAWSON (and probable multimodal approach with CMR). He has consulted with Dr. Arias, his cardiac surgeon at [facility] and I think what makes sense at this time is for him to have the imaging done at [facility] as they have planned; if he were to have repeat surgery, he would opt to have it done there. We will request the images when done. # Aortic valve replacement: #25 inspiris prosthetic aortic valve # Tricuspid valve repair: Hernandez MC3 tricuspid ring at the time of his second cardiac surgery in 2021. History of Present Illness: Luisito Zhong is a 44 y.o. male presenting for evaluation in the cardiology clinic. Luisito Zhong is a former patient of Dr. Perez who is presenting to [facility]. 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 Cabrera and Dr. Estevez. Unfortunately, not long after this surgical intervention, he had recurring symptoms. Repeat workup, including TTE, LAWSON and CMR demonstrated recurrent subaortic membrane. He sought surgical opinion at [facility], and ultimately underwent repeat surgical intervention on 01/26/[address] Roscoe Arias. That procedure included membrane removal and aortic valve replacement with #25 Inspiris prosthetic aortic valve, as well as tricuspid repair with Hernandez MC3 tricuspid ring. Most recently, he re-presented to Dr. Perez for follow-up, in 05/2024. At that visit, he reported increasing shortness of breath, his primary symptom with the obstructive LVOT. This is our first meeting. He describes some progressive dyspnea over the past few months. This is noticeable for him on a day-to-day basis but does not seem to be limiting him from doing the majority of his activities. He estimates that walking at a normal pace, he wouldn't be limited by dyspnea at effectively any distance. He is not having chest pain, no syncopal episodes. No orthopnea/PND symptoms. He does notice the dyspnea when vaping. We discussed today the critical importance of cessation particularly if he were to require further surgery. He has communicated with Dr. Arias about the symptoms that are occurring and there are plans for a LAWSON, probably will be done in November, and an office visit after that time. Cardiovascular History: EKG: Personal interpretation of the EKG shows a sinus rhythm Personally reviewed the LAWSON from 2021 which demonstrates an anterior ridge/membrane in the LVOT with associated flow acceleration, probably just inferior to the RCC. Still have not received echo images from [place] from last month, but did review the report which documents a 30mmHg gradient across the LVOT Past Medical History: Outlined above Physical Examination: Vitals:There were no vitals filed for this visit. There is no height or weight on file to calculate BMI. Physical Exam: GEN: Comfortable, conversant, on room air Neck: JVD not elevated Heart: Regular rate, rhythm, systolic murmur at the aortic position without variation with valsalva Lungs: Clear to auscultation throughout Abd: Soft/nontender Ext: Warm, well-perfused, no edema Neuro: No apparent focal neuro deficit, formal examination deferred Medications: Current Outpatient Medications: Acetaminophen Extra Strength 500 MG tablet, , Disp: , Rfl: albuterol 108 (90 Base) MCG/ACT inhaler, Inhale 2 puffs. (Patient not taking: Reported on 05/14/2024), Disp: , Rfl: aspirin 81 MG EC tablet, Take 81 mg by mouth in the morning. (Patient not taking: Reported on 05/14/2024), Disp: , Rfl: cholecalciferol (Vitamin D-3) 50 MCG (1999 UT) tablet, Take 1 tablet by mouth in the morning., Disp: , Rfl: Continuous Blood Gluc Sensor (FreeStyle Carlton 2 Sensor) misc, APPLY SENSOR TO BACK OF UPPER ARM,REMOVE AND REPLACE EVERY 14 DAYS, Disp: 3 each, Rfl: 2 Continuous Blood Gluc Transmit (Dexcom G6 transmitter) misc, Change every 90 days, Disp: , Rfl: DULoxetine (Cymbalta) [address] capsule, Take 30 mg by mouth in the morning., (more content not included)... Normal [facility] CNPNon 08-17-2024 CNPN Normal [facility] Progress Noteon 08-07-2024 Progress Note Called patient to re view echo. The echo comments on elevated gradients across the LVOT. He recently had subaortic membrane resection and SAVR at [facility] in 2021- it would be relatively unusual for progression of PrAV stenosis at this time point, which raises suspicion for either LVOT obstruction via hypertrophy or recurrence of membrane. Will obtain echo images from [place], and plan either LAWSON/MRI. Mr. Zhong reports some slowly increasing exertional limitation. He has reached out to his surgeon at [facility], Dr. Fuentes as well. Normal [facility] .GFRon 07-31-2024 GFR >60 Normal [facility] Comment on above: Result Comment: GFR Population mean for , Non- Americans Ages 20-29 = 116 mL/min/1.73 sq.m. Ages 30-39 = 107 mL/min/1.73 sq.m. Ages 40-49 = 99 mL/min/1.73 sq.m. Ages 50-59 = 93 mL/min/1.73 sq.m. Ages 60-69 = 85 mL/min/1.73 sq.m. Ages 70+ = 75 mL/min/1.73 sq.m. Chronic Kidney Disease: Less than 60 mL/min/1.73 square meters End Stage Renal Disease: Less than 15 mL/min/1.73 square meters Performed By: #### C MP, GFR #### [address] [address] GFR Non- >60 Normal [facility] Comment on above: Result Comment: GFR Population mean for , Non- Americans Ages 20-29 = 116 mL/min/1.73 sq.m. Ages 30-39 = 107 mL/min/1.73 sq.m. Ages 40-49 = 99 mL/min/1.73 sq.m. Ages 50-59 = 93 mL/min/1.73 sq.m. Ages 60-69 = 85 mL/min/1.73 sq.m. Ages 70+ = 75 mL/min/1.73 sq.m. Chronic Kidney Disease: Less than 60 mL/min/1.73 square meters End Stage Renal Disease: Less than 15 mL/min/1.73 square meters Performed By: #### C MP, GFR #### [address] [address] [facility] Albumin Level 3.4 G/dL Normal 3.2-4.8 [facility] Comment on above: Performed By: #### C MP, GFR #### [address] [address] Albumin/Globulin [Mass ratio] 1.0 {ratio} Normal 0.9-1.6 [facility] Comment on above: Performed By: #### C MP, GFR #### [address] [address] ALP [Catalytic activity/Vol] 91 U/L Normal 38-126 [facility] Comment on above: Performed By: #### C MP, GFR #### [address] [address] ALT [Catalytic activity/Vol] 25 U/L Normal 12-55 [facility] Comment on above: Performed By: #### C MP, GFR #### [address] [address] AST [Catalytic activity/Vol] 31 U/L Normal 8-34 [facility] Comment on above: Performed By: #### C MP, GFR #### [place] [id number] Bili Total 0.70 mg/dL Normal 0.20-1.20 [facility] Comment on above: Result Comment: Use of this assay is not recommended for patients undergoing treatment with eltrombopag due to the potential for falsely elevated results. Performed By: #### C MP, GFR #### [place] [id number] BUN/Creatinine Ratio 16.7 ratio Normal 10.0-22.0 [facility] Comment on above: Performed By: #### C MP, GFR #### [address] [address] Calcium [Mass/Vol] 9.7 mg/dL Normal 8.7-10.4 [facility] Comment on above: Performed By: #### C MP, GFR #### [address] [address] Chloride [Moles/Vol] 105 mmol/L Normal 98-110 [facility] Comment on above: Performed By: #### C MP, GFR #### [address] [address] CO2 [Moles/Vol] 33 mmol/L High 22-32 [facility] Comment on above: Performed By: #### C MP, GFR #### [place] [id number] Creatinine [Mass/Vol] 0.84 mg/dL Normal 0.60-1.40 [facility] Comment on above: Result Comment: Test ing performed on 3Funnel analyzer using enzymatic creatinine methodology. Performed By: #### C MP, GFR #### [address] [address] Electrolyte Balance 6.0 mEq/L Normal 4.0-15.0 [facility] Comment on above: Performed By: #### C MP, GFR #### [address] [address] Globulin 3.4 G/dL Normal 1.5-3.8 [facility] Comment on above: Performed By: #### C MP, GFR #### [address] [address] Glucose [Mass/Vol] 107 mg/dL Normal 70-110 [facility] Comment on above: Performed By: #### C MP, GFR #### [address] [address] Potassium [Moles/Vol] 3.9 mmol/L Normal 3.5-5.0 [facility] Comment on above: Performed By: #### C MP, GFR #### [address] [address] Sodium [Moles/Vol] 144 mmol/L Normal 136-145 [facility] Comment on above: Performed By: #### C MP, GFR #### [address] [address] Total Protein 6.8 G/dL Normal 5.7-8.2 [facility] Comment on above: Performed By: #### C MP, GFR #### [address] [address] Urea nitrogen [Mass/Vol] 14.0 mg/dL Normal 8.0-22.0 [facility] Comment on above: Performed By: #### C MP, GFR #### [address] [address] CPEPon 07-31-2024 C-Peptide 0.29 ng/mL Low 0.81-3.85 [facility] Comment on above: Performed By: #### C MP, GFR #### [place] [id number] [place] [address] TSHon 07-31-2024 TSH 42.772 mIU/mL High 0.550-4.780 [facility] Comment on above: Performed By: #### C MP, GFR #### [address] [address] VIDHon 07-31-2024 Vit. D 25-Hydroxy 22.7 ng/mL [facility] Comment on above: Result Comment: Inte rpretive Values Based on Total 25(OH)D: Severe Deficiency <20 ng/mL Mild to Moderate Deficiency 20-30 ng/mL Optimum Levels 30-100 ng/mL Toxicity Possible >100 ng/mL Performed By: #### C MP, GFR #### [address] [address] .GFRon 07-17-2024 GFR >60 Normal [facility] Comment on above: Result Comment: GFR Population mean for , Non- Americans Ages 20-29 = 116 mL/min/1.73 sq.m. Ages 30-39 = 107 mL/min/1.73 sq.m. Ages 40-49 = 99 mL/min/1.73 sq.m. Ages 50-59 = 93 mL/min/1.73 sq.m. Ages 60-69 = 85 mL/min/1.73 sq.m. Ages 70+ = 75 mL/min/1.73 sq.m. Chronic Kidney Disease: Less than 60 mL/min/1.73 square meters End Stage Renal Disease: Less than 15 mL/min/1.73 square meters Performed By: #### C MP, GFR #### [address] [address] GFR Non- >60 Normal [facility] Comment on above: Result Comment: GFR Population mean for , Non- Americans Ages 20-29 = 116 mL/min/1.73 sq.m. Ages 30-39 = 107 mL/min/1.73 sq.m. Ages 40-49 = 99 mL/min/1.73 sq.m. Ages 50-59 = 93 mL/min/1.73 sq.m. Ages 60-69 = 85 mL/min/1.73 sq.m. Ages 70+ = 75 mL/min/1.73 sq.m. Chronic Kidney Disease: Less than 60 mL/min/1.73 square meters End Stage Renal Disease: Less than 15 mL/min/1.73 square meters Performed By: #### C MP, GFR #### [address] [address] A1Con 07-17-2024 Glucose [Mass/Vol] 192 mg/dL Normal [facility] Comment on above: Result Comment: Rosanna mated Average Glucose calculated by equation ((28.7xA1C)-46.7) Estimated average glucose (eAG) is a calculated value from Hemoglobin A1C and is contact representative of the average blood glucose level in the last 2-3 month period. Normal range: less than 114 mg/dL Performed By: #### C MP, GFR #### [address] [address] HbA1c (Bld) [Mass fraction] 8.3 % High 4.0-6.0 [facility] Comment on above: Performed By: #### C MP, GFR #### [address] [address] CMPon 07-17-2024 Albumin Level 3.6 G/dL Normal 3.2-4.8 [facility] Comment on above: Performed By: #### C MP, GFR #### [address] [address] Albumin/Globulin [Mass ratio] 1.1 {ratio} Normal 0.9-1.6 [facility] Comment on above: Performed By: #### C MP, GFR #### [address] [address] ALP [Catalytic activity/Vol] 122 U/L Normal 38-126 [facility] Comment on above: Performed By: #### C MP, GFR #### [address] [address] ALT [Catalytic activity/Vol] 24 U/L Normal 12-55 [facility] Comment on above: Performed By: #### C MP, GFR #### [address] [address] AST [Catalytic activity/Vol] 28 U/L Normal 8-34 [facility] Comment on above: Performed By: #### C MP, GFR #### [place] [id number] Bili Total 0.60 mg/dL Normal 0.20-1.20 [facility] Comment on above: Result Comment: Use of this assay is not recommended for patients undergoing treatment with eltrombopag due to the potential for falsely elevated results. Performed By: #### C MP, GFR #### [place] [id number] BUN/Creatinine Ratio 22.7 ratio High 10.0-22.0 [facility] Comment on above: Performed By: #### C MP, GFR #### [place] [address] Calcium [Mass/Vol] 9.9 mg/dL Normal 8.7-10.4 [facility] Comment on above: Performed By: #### C MP, GFR #### [place] [id number] Chloride [Moles/Vol] 106 mmol/L Normal 98-110 [facility] Comment on above: Performed By: #### C MP, GFR #### [place] [id number] CO2 [Moles/Vol] 27 mmol/L Normal 22-32 [facility] Comment on above: Performed By: #### C MP, GFR #### [place] [id number] Creatinine [Mass/Vol] 0.66 mg/dL Normal 0.60-1.40 [facility] Comment on above: Result Comment: Test ing performed on 3Funnel analyzer using enzymatic creatinine methodology. Performed By: #### C MP, GFR #### [place] [id number] Electrolyte Balance 10.0 mEq/L Normal 4.0-15.0 [facility] Comment on above: Performed By: #### C MP, GFR #### [place] [id number] Globulin 3.3 G/dL Normal 1.5-3.8 [facility] Comment on above: Performed By: #### C MP, GFR #### [address] [address] Glucose [Mass/Vol] 61 mg/dL Low 70-110 [facility] Comment on above: Performed By: #### C MP, GFR #### [address] [address] Potassium [Moles/Vol] 4.2 mmol/L Normal 3.5-5.0 [facility] Comment on above: Performed By: #### C MP, GFR #### [address] [address] Sodium [Moles/Vol] 143 mmol/L Normal 136-145 [facility] Comment on above: Performed By: #### C MP, GFR #### [address] [address] Total Protein 6.9 G/dL Normal 5.7-8.2 [facility] Comment on above: Performed By: #### C MP, GFR #### [address] [address] Urea nitrogen [Mass/Vol] 15.0 mg/dL Normal 8.0-22.0 [facility] Comment on above: Performed By: #### C MP, GFR #### [address] [address] LIPIDon 07-17-2024 Cholesterol [Mass/Vol] 246 mg/dL High 50-199 [facility] Comment on above: Result Comment: Chol esterol Reference Interval: Less than 200 Desirable 200-239 Borderline high risk 240 and above High risk Performed By: #### C MP, GFR #### [address] [address] Cholesterol in HDL [Mass/Vol] 94 mg/dL High 40-59 [facility] Comment on above: Performed By: #### C MP, GFR #### [address] [address] Cholesterol in LDL [Mass/Vol] 131 mg/dL High 0-129 [facility] Comment on above: Performed By: #### C MP, GFR #### [place] [id number] [place] [address] Triglyceride [Mass/Vol] 107 mg/dL Normal 3-149 [facility] Comment on above: Performed By: #### C MP, GFR #### [address] [address] MALBRon 07-17-2024 U Creatinine 153.2 mg/dL Normal [facility] Comment on above: Performed By: #### C MP, GFR #### [place] [id number] U Microalb <300 Normal [facility] Comment on above: Performed By: #### C MP, GFR #### [address] [address] U Ratio Alb/Cre Unable to Calculate Normal 0.0-16.9 [facility] Comment on above: Result Comment: Unab le to calculate this test result accurately. Results used to calculate this test are outside the reportable range. Performed By: #### C MP, GFR #### [place] [address] VIDHon 07-17-2024 Vit. D 25-Hydroxy 25.9 ng/mL Normal [facility] Comment on above: Result Comment: Inte rpretive Values Based on Total 25(OH)D: Severe Deficiency <20 ng/mL Mild to Moderate Deficiency 20-30 ng/mL Optimum Levels 30-100 ng/mL Toxicity Possible >100 ng/mL Performed By: #### C MP, GFR #### [place] [address] 36on 05-15-2024 36 Order for echo faxed to [facility] [phone] This is where patient prefers to complete testing Central Scheduling was provided to patient for him to call to schedule. Normal [facility] Office Visiton 05-14-2024 Follow-up visit [id number] Italia Zhong 1980 M Date Provider Department Center 05/14/2024 [id number]-AGYOULUZ MARIA PEREZ [facility] WR None Family History Problem Relation Age of Onset Colon cancer Maternal Grandmother No Known Problems Father No Known Problems Mother Other Sister Comments: MS Heart disease Paternal Grandmother Family Status - Relation Status Age at Maternal Grandmother Father Alive Mother Alive Sister Alive Paternal Grandmother Maternal Grandfather Paternal Grandfather Level of Service:38068 [place] OFFICE/OUTPATIENT ESTABLISHED MOD MDM 30 MIN Reason for Visit and Comments: 6 Month Follow-up [671] [facility] Progress Noteon 05-14-2024 Progress Note Subjective: Patient: Luisito Zhong is a 44 y.o. male HPI Luisito Zhong is 44 years old. His last visit was 1 year ago. 5 years ago he had surgery for a subaortic membrane which resulted in an outflow tract obstruction this was completed by Dr. Olman Cabrera. Unfortunately then reoccurring 2-1/2 years ago he was sent to the clinic clinic where he had a membrane removed again and then the aortic valve was replaced with a bioprosthetic valve. In the past he has had issues with cocaine and methamphetamine use. This has been problematic. During his last visit he reported some cocaine use. In the past she has had normal left ventricular function. He has had arthritic pain and primarily involving his right hip. During his last visit he was stable he continued with a grade 1-2 systolic murmur which was unchanged from the past. He had recent blood work which showed normal hemoglobin of 14.9. Today he presents for follow-up after his aortic membrane removal and aortic valve replacement. Review of Systems Constitutional: Negative. HENT: Negative. Eyes: Negative. Respiratory: Positive for shortness of breath. Cardiovascular: Negative. Gastrointestinal: Negative. Endocrine: Negative. Genitourinary: Negative. Musculoskeletal: Negative. Skin: Negative. Allergic/Immunologic: Negative. Neurological: Negative. Hematological: Negative. Psychiatric/Behavioral: Negative. Allergies Allergen Reactions Hydromorphone Itching Tramadol Other reaction(s): Other: See Comments Burning skin Burning skin @MEDCMED@ Past Medical History: Diagnosis Date Anxiety Aortic stenosis Carpal tunnel syndrome 2018 right Cocaine abuse (HCC) Depression Diabetes mellitus type 1 (HCC) 1984 Hyperlipidemia Thyroid disease Past Surgical History: Procedure Laterality Date CARDIAC SURGERY 01/26/2022 CARPAL TUNNEL RELEASE ELBOW SURGERY Right 2018 cubital tunnel syndrome HIP SURGERY Right OTHER SURGICAL HISTORY 12/20/2018 resection of LV outflow tract obstruction-subaortic valve membrane OTHER SURGICAL HISTORY Left 11/30/2018 Carpel Tunnel SHOULDER SURGERY Left 2012 adhesive capsulitis CHASE and arthroscopy Family History Problem Relation Name Age of Onset Colon cancer Maternal Grandmother No Known Problems Father No Known Problems Mother Other ([id number]) Sister MS Heart disease Paternal Grandmother Social History Tobacco Use Smoking status: Every Day Current packs/day: 0.50 Types: Cigarettes Smokeless tobacco: Never Substance Use Topics Alcohol use: Not Currently Objective: There were no vitals taken for this visit. Physical Exam Vitals and nursing note reviewed. Constitutional: Appearance: Normal appearance. HENT: Head: Normocephalic and atraumatic. Nose: Nose normal. Eyes: Extraocular Movements: Extraocular movements intact. Conjunctiva/sclera: Conjunctivae normal. Pupils: Pupils are equal, round, and reactive to light. Cardiovascular: Rate and Rhythm: Normal rate and regular rhythm. Pulses: Normal pulses. Heart sounds: Murmur heard. Systolic murmur is present with a grade of 2/6. Pulmonary: Effort: Pulmonary effort is normal. Breath sounds: Normal breath sounds. Abdominal: General: Abdomen is flat. Bowel sounds are normal. Palpations: Abdomen is soft. Musculoskeletal: General: No swelling. Normal range of motion. Cervical back: Normal range of motion and neck supple. Skin: General: Skin is warm and dry. Neurological: General: No focal deficit present. Mental Status: He is alert and oriented to person, place, and time. Mental status is at baseline. Psychiatric: Mood and Affect: Mood normal. Behavior: Behavior normal. Thought Content: Thought content normal. Assessment 1. Subvalvar aortic stenosis 2. Congenital subaortic stenosis 3. Subaortic membrane 4. S/P AVR (aortic valve replacement) 5. History of cocaine use Plan Luisito Zhong from a cardiac standpoint appears stable although he continues to struggle with his cocaine use. He is unemployed lives with his parents. His exam shows a 2/6 murmur right upper sternal border. I performed a [id number] cardiac ultrasound I did not get a clear view of his prosthetic aortic valve although his LV function appeared normal. It has been several years since his second valve surgery and sob aortic membrane removal I asked him to complete another echocardiogram to reevaluate his valve and if the membrane reoccurred. He has had no chest pain or significant shortness of breath. Today I did not change his medications the only testing was a [id number] echo in the office and I ordered a formal echocardiogram to get a better view of his prosthesis. 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 Certainly will forward him all this information. Luz Maria Perez MD 05/14/2024 6:54 AM In preparation for this encounter, we (more content not included)... Normal [facility] CNCOon 05-01-2024 CNCO Letter Text Normal [facility] CNPNon 04-30-2024 CNPN Telephone (AGENDOG) LUISITO ZHONG ([id number]) 1980 M T Date Time Provider Department 04/30/24 DWAYNE ARAUJO During your visit today, we recorded the following information about you: Anita Dan 04/30/2024 10:11 AM Signed Received a fax form [facility] for pts diabetes supplies. Pt has not been seen in over a year, need appointment. Valeria Xiong 04/30/2024 11:06 AM Addendum 1st Attempt Called but number said there are calling restrictions and won't allow the call to go through. Left a vm on swapnil Carnes's phone (listed as a contact) to call if she has any new contact info for patient. Told her she can ask to be transferred to the [employer] front desk monitor. Valeria Hare April 30, 2024 11:02 AM Cielo Bloom 05/01/2024 1:25 PM Signed 2nd attempt. Jose Luis acuna has calling restrictions that prevents call from going through. Sent MyChart and unable to be reached letter. Cielo Bloom May 01, 2024 1:25 PM Cielo Bloom 05/03/2024 8:14 AM Signed 3rd attempt. Jose Luis acuna has calling restrictions that prevents call from going through. Cielo Hugh May 03, 2024 8:14 AM Allergies As of Date: 04/30/2024 Noted Allergy Reaction HYDROMORPHONE 06/18/2019 9 - Itching TRAMADOL 10/27/2021 14 - Other: See Comments Comments: Burning skin Date Reviewed: 03/27/2024 Reviewed by: Joseline Garcia RN - Fully Assessed Reason for Visit: Appointment [186] Prescriptions as of 05/03/2024 - levothyroxine (SYNTHROID) 175 mcg tablet Take 1 tablet by mouth daily at 6 am. - Blood-Glucose Sensor (DEXCOM G6 SENSOR) xenia APPLY AND REPLACE SENSOR TOPICALLY EVERY 10 DAYS - Blood-Glucose Transmitter (DEXCOM G6 TRANSMITTER) xenia Apply new transmitter every 90 days. Clean transmitter with an alcohol swab with each sensor change. - levothyroxine (SYNTHROID) 175 mcg tablet Take 1 tablet by mouth daily before breakfast. - TRESIBA FLEXTOUCH U-100 100 unit/mL (3 mL) injection pen INJECT 40 UNITS SUBCUTANEOUSLY ONCE DAILY - blood sugar diagnostic ([employer] MedicalTOUCH ULTRA TEST) test strip TEST UP TO 7 TIMES DAILY BEFORE MEALS AND AT BEDTIME PLUS NEEDED FOR SYMPTOMS - Blood-Glucose Transmitter (DEXCOM G6 TRANSMITTER) xenia 1 Each once daily. - rosuvastatin (CRESTOR) 10 mg tablet Take 1 tablet by mouth daily at bedtime. - cholecalciferol (VITAMIN D-3) 50 mcg (2,000 unit) tablet Take 1 tablet by mouth once daily. - umeclidinium-vilanterol (ANORO ELLIPTA) 62.5-25 mcg/actuation inhaler Inhale 1 Inhalation as instructed once daily. - DULoxetine (CYMBALTA) 30 mg capsule Take 1 capsule by mouth once daily. - escitalopram oxalate (LEXAPRO) 20 mg tablet Take 1 tablet by mouth once daily. - Blood-Glucose Meter,Continuous (DEXCOM G7 FOOTWEAR MACHINERY INSTRUCTOR) misc 1 Each five times a day. - insulin lispro (HUMALOG U-100 INSULIN) 100 unit/mL injection Inject up to 90 units per day via insulin pump. - Blood-Glucose Sensor (DEXCOM G6 SENSOR) xenia Apply new sensor every ten (10) days to abdomen. - Blood-Glucose Meter,Continuous (DEXCOM G6 FOOTWEAR MACHINERY INSTRUCTOR) misc Use to check blood sugar at least four (4) times daily. - OMNIPOD 5 G6 PODS, GEN 5, crtg Change pod every 48 hours. - Insulin Syringe-Needle U-100 (BD INSULIN SYRINGE ULTRA-FINE) 0.5 mL 31 gauge x 5/16 Inject 1 Each subcutaneously three times daily. Use 3 times daily with Humalog injections. Diagnosis E10.65 PATIENT IS OFF OF INSULIN PUMP AND NOW USING BASAL/BOLUS INSULIN AGAIN - acetaminophen (TYLENOL) 500 mg tablet 1,000 mg. - aspirin, enteric coated (ASPIRIN, ENTERIC COATED) 81 mg EC tablet Take 81 mg by mouth q 24 HR. - Insulin [place], Disposable, (BD ULTRAFINE III MINI PEN) 31 gauge x 3/16 USE WITH INSULIN PENS ONCE DAILY diagnosis E10.65 PATIENT IS OFF OF INSULIN PUMP AND NOW USING BASAL/BOLUS INSULIN AGAIN - ibuprofen (MOTRIN) 800 mg tablet Take 1 tablet by mouth every 8 hours as needed for pain or fever (specify). - fluticasone (FLONASE) 50 mcg/actuation nasal spray Use 1 [place] in the nose once daily as needed. - ALLERGY RELIEF, LORATADINE, 10 mg tablet Take 10 mg by mouth once daily. 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 Normal [facility] A1Con 04-17-2024 Glucose [Mass/Vol] 171 mg/dL Normal [facility] Comment on above: Result Comment: Rosanna mated Average Glucose calculated by equation ((28.7xA1C)-46.7) Estimated average glucose (eAG) is a calculated value from Hemoglobin A1C and is contact representative of the average blood glucose level in the last 2-3 month period. Normal range: less than 114 mg/dL Performed By: #### T AVILA MALIK, AIDA, PBNP, CBC, ANEU, ADIFF, GFR #### [address] [address] HbA1c (Bld) [Mass fraction] 7.6 % High 4.0-6.0 [facility] Comment on above: Performed By: #### T AVILA MALIK, AIDA, PBNP, CBC, ANEU, ADIFF, GFR #### [address] [address] .GFRon 04-16-2024 GFR Non- >60 [facility] Comment on above: Result Comment: GFR Population mean for , Non- Americans Ages 20-29 = 116 mL/min/1.73 sq.m. Ages 30-39 = 107 mL/min/1.73 sq.m. Ages 40-49 = 99 mL/min/1.73 sq.m. Ages 50-59 = 93 mL/min/1.73 sq.m. Ages 60-69 = 85 mL/min/1.73 sq.m. Ages 70+ = 75 mL/min/1.73 sq.m. Chronic Kidney Disease: Less than 60 mL/min/1.73 square meters End Stage Renal Disease: Less than 15 mL/min/1.73 square meters Performed By: #### T AVILA MALIK, AIDA, PBNP, CBC, ANEU, ADIFF, GFR #### [address] [address] GFR >60 [facility] Comment on above: Result Comment: GFR Population mean for , Non- Americans Ages 20-29 = 116 mL/min/1.73 sq.m. Ages 30-39 = 107 mL/min/1.73 sq.m. Ages 40-49 = 99 mL/min/1.73 sq.m. Ages 50-59 = 93 mL/min/1.73 sq.m. Ages 60-69 = 85 mL/min/1.73 sq.m. Ages 70+ = 75 mL/min/1.73 sq.m. Chronic Kidney Disease: Less than 60 mL/min/1.73 square meters End Stage Renal Disease: Less than 15 mL/min/1.73 square meters Performed By: #### T AVILA MALIK, AIDA, PBNP, CBC, ANEU, ADIFF, GFR #### [address] [address] CMPon 04-16-2024 Albumin Level 3.3 G/dL Normal 3.2-4.8 [facility] Comment on above: Performed By: #### T AVILA MALIK, AIDA, PBSHELLY, CBC, ANEU, ADIFF, GFR #### [address] [address] Albumin/Globulin [Mass ratio] 1.0 {ratio} Normal 0.9-1.6 [facility] Comment on above: Performed By: #### T AVILA MALIK, AIDA, PBSHELLY, CBC, ANEU, ADIFF, GFR #### [address] [address] ALP [Catalytic activity/Vol] 79 U/L Normal 38-126 [facility] Comment on above: Performed By: #### T AVILA MALIK, AIDA, PBNP, CBC, ANEU, ADIFF, GFR #### [address] [address] ALT [Catalytic activity/Vol] 28 U/L Normal 12-55 [facility] Comment on above: Performed By: #### AVILA HOLLAND, AIDA, PBNP, CBC, ANEU, ADIFF, GFR #### [address] [address] AST [Catalytic activity/Vol] 35 U/L High 8-34 [facility] Comment on above: Performed By: #### AVILA HOLLAND, AIDA, PBNP, CBC, ANEU, ADIFF, GFR #### [address] [address] Bili Total 0.50 mg/dL Normal 0.20-1.20 [facility] Comment on above: Result Comment: Use of this assay is not recommended for patients undergoing treatment with eltrombopag due to the potential for falsely elevated results. Performed By: #### T AVILA MALIK, AIDA, PBNP, CBC, ANEU, ADIFF, GFR #### [address] [address] BUN/Creatinine Ratio 12.5 ratio Normal 10.0-22.0 [facility] Comment on above: Performed By: #### T AVILA MALIK, AIDA, PBNP, CBC, ANEU, ADIFF, GFR #### [address] [address] Calcium [Mass/Vol] 9.0 mg/dL Normal 8.7-10.4 [facility] Comment on above: Performed By: #### T AVILA MALIK, AIDA, PBNP, CBC, ANEU, ADIFF, GFR #### [address] [address] Chloride [Moles/Vol] 106 mmol/L Normal 98-110 [facility] Comment on above: Performed By: #### T AVILA MALIK, ADIA, PBNP, CBC, ANEU, ADIFF, GFR #### [address] [address] CO2 [Moles/Vol] 27 mmol/L Normal 22-32 [facility] Comment on above: Performed By: #### T AVILA MALIK, CMP, PBNP, CBC, ANEU, ADIFF, GFR #### [address] [address] Creatinine [Mass/Vol] 0.80 mg/dL Normal 0.60-1.40 [facility] Comment on above: Result Comment: Test ing performed on 3Funnel analyzer using enzymatic creatinine methodology. Performed By: #### T AVILA MALIK, AIDA, PBNP, CBC, ANEU, ADIFF, GFR #### [address] [address] Electrolyte Balance 9.0 mEq/L Normal 4.0-15.0 [facility] Comment on above: Performed By: #### T AVILA MALIK, AIDA, PBNP, CBC, ANEU, ADIFF, GFR #### [address] [address] Globulin 3.3 G/dL Normal 1.5-3.8 [facility] Comment on above: Performed By: #### T AVILA MALIK, AIDA, PBNP, CBC, ANEU, ADIFF, GFR #### [address] [address] Glucose [Mass/Vol] 98 mg/dL Normal 70-110 [facility] Comment on above: Performed By: #### T AVILA MALIK, AIDA, PBNP, CBC, ANEU, ADIFF, GFR #### [address] [address] Potassium [Moles/Vol] 3.9 mmol/L Normal 3.5-5.0 [facility] Comment on above: Performed By: #### T AVILA MALIK, AIDA, PBNP, CBC, ANEU, ADIFF, GFR #### [address] [address] Sodium [Moles/Vol] 142 mmol/L Normal 136-145 [facility] Comment on above: Performed By: #### T AVILA MALIK, AIDA, PBNP, CBC, ANEU, ADIFF, GFR #### [place] [id number] Total Protein 6.6 G/dL Normal 5.7-8.2 [facility] Comment on above: Result Comment: No te - New Reference Range in effect 20 Performed By: #### T AVILA MALIK, AIDA, PBNP, CBC, ANEU, ADIFF, GFR #### [address] [address] Urea nitrogen [Mass/Vol] 10.0 mg/dL Normal 8.0-22.0 [facility] Comment on above: Performed By: #### T AVILA MALIK, AIDA, PBNP, CBC, ANEU, ADIFF, GFR #### [address] [address] CMP EXTERNAL QAIon Albumin [Mass/Vol] 3.3 g/dL [facility] Albumin/Globulin [Mass ratio] 1 {ratio} [facility] Bilirubin [Mass/Vol] 0.5 mg/dL [facility] Calcium [Mass/Vol] 9 mg/dL [facility] Creatinine per volume 0.8 [facility] eGFR- [facility] eGFR-All Other Races [facility] ELECTROLYTE BALANCE 9 [facility] Globulin, Total 3.3 [facility] Protein [Mass/Vol] 6.6 g/dL [facility] Urea nitrogen [Mass/Vol] 10 mg/dL [facility] Urea nitrogen/Creatinine [Mass ratio] 12.5 mg/mg [facility] CRPon 04-16-2024 CRP [Mass/Vol] mg/L Normal 0.0-1.0 [facility] Comment on above: Result Comment: No te - New Reference Range in effect 20 Performed By: #### T AVILA MALIK, AIDA, PBNP, CBC, ANEU, ADIFF, GFR #### [place] [address] CRP [Mass/Vol]on 04-16-2024 C-Reactive Protein - Intl 0.0 - 1.0 [facility] HCVon 04-16-2024 Hep C Ab Non-Reactive Normal Non-Reactive [facility] Comment on above: Performed By: #### T AVILA MALIK, AIDA, PBNP, CBC, ANEU, ADIFF, GFR #### [place] [address] Hep C Ab Int Normal [facility] Comment on above: Result Comment: Nonr eactive: Samples with a value < 0.80 are considered nonreactive (negative) for antibodies to HCV. A negative test result does not exclude the possibility of exposure to or infection with HCV. HCV antibodies may be undetectable in some stages of the infection and in some clinical conditions. See Interp Performed By: #### T AVILA MALIK, AIDA, PBNP, CBC, ANEU, ADIFF, GFR #### [place] [id number] HEP C VIRUS ANTIBODY (LABCOR P)on 04-16-2024 HEP C VIRUS AB Non-Reactive [facility] HIVon 04-16-2024 HIV 1/2 Ab Non-Reactive Normal Non-Reactive [facility] Comment on above: Result Comment: Spec nino is negative for anti-HIV-1 and anti-HIV-2. Performed By: #### T AVILA MALIK, AIDA, PBNP, CBC, ANEU, ADIFF, GFR #### [address] [address] HIV 1&2 ANTIBODY SCREEN/P24 ANTIGENOrdered By: Marry Granados on 04-16-2024 HIV 1 and 2 Ab IA.rapid Nom (S/P/Bld) Non-Reactive [facility] HbA1c (Bld)on 04-16-2024 HbA1c (Bld) [Mass fraction] 7.6 % Abnormal 4.0 - 6.0 % [facility] LIPIDon 04-16-2024 Cholesterol [Mass/Vol] 181 mg/dL Normal 50-199 [facility] Comment on above: Result Comment: Chol esterol Reference Interval: Less than 200 Desirable 200-239 Borderline high risk 240 and above High risk Performed By: #### T AVILA MALIK, AIDA, PBNP, CBC, ANEU, ADIFF, GFR #### [address] [address] Cholesterol in HDL [Mass/Vol] 59 mg/dL Normal 40-59 [facility] Comment on above: Performed By: #### T AVILA MALIK, AIDA, PBNP, CBC, ANEU, ADIFF, GFR #### [address] [address] Cholesterol in LDL [Mass/Vol] 107 mg/dL Normal 0-129 [facility] Comment on above: Performed By: #### T AVILA MALIK, AIDA, PBNP, CBC, ANEU, ADIFF, GFR #### [address] [address] Triglyceride [Mass/Vol] 75 mg/dL Normal 3-149 [facility] Comment on above: Performed By: #### T AVILA MALIK, AIDA, PBNP, CBC, ANEU, ADIFF, GFR #### [address] [address] No Panel Informationon 04-16 Interpretation and review of laboratory results Abnormal [facility] No Panel InformationOrdered By: Marry Granados on 04-16-2024 [facility] TCANCon 04-16-2024 Test cancelled: CBC Normal [facility] Comment on above: Performed By: #### T AVILA MALIK, CMP, PBNP, CBC, ANEU, ADIFF, GFR #### [place] [address] TSHon 04-16-2024 TSH 83.067 mIU/mL High 0.550-4.780 [facility] Comment on above: Result Comment: No te - New Reference Range in effect 20 Performed By: #### T AVILA MALIK, CMP, PBNP, CBC, ANEU, ADIFF, GFR #### [place] [address] TSH (EXTERNAL)on 04-16-2024 TSH Qn 83.067 m[IU]/L Abnormal [facility] VIDHon 04-16-2024 Vit. D 25-Hydroxy 25.9 ng/mL Normal [facility] Comment on above: Result Comment: Inte rpretive Values Based on Total 25(OH)D: Severe Deficiency <20 ng/mL Mild to Moderate Deficiency 20-30 ng/mL Optimum Levels 30-100 ng/mL Toxicity Possible >100 ng/mL Performed By: #### T AVILA MALIK, CMP, PBNP, CBC, ANEU, ADIFF, GFR #### [address] [address] VITAMIN D 25 HYDROXYon 04-16 25-hydroxyvitamin D3 [Mass/Vol] 25.9 ng/mL Abnormal 31.0 - 80.0 ng/mL [facility] .Auto Diffon 04-11-2024 Basophil, Absolute 0.1 10 3/mcL Normal 0.0-0.3 [facility] Comment on above: Performed By: #### T AVILA MALIK, AIDA, PBNP, CBC, ANEU, ADIFF, GFR #### [address] [address] Basophils/100 WBC (Bld) 0.6 % Normal 0.0-2.5 [facility] Comment on above: Performed By: #### T AVILA MALIK, CMP, PBNP, CBC, ANEU, ADIFF, GFR #### [address] [address] Eosinophil, Absolute 0.2 10 3/mcL Normal 0.0-0.7 [facility] Comment on above: Performed By: #### T AVILA MALIK, CMP, PBNP, CBC, ANEU, ADIFF, GFR #### [address] [address] Eosinophils/100 WBC (Bld) 1.6 % Normal 0.0-6.0 [facility] Comment on above: Performed By: #### T AVILA MALIK, CMP, PBNP, CBC, ANEU, ADIFF, GFR #### [address] [address] Lymphocyte, Absolute 1.3 10 3/mcL Normal 0.9-4.3 [facility] Comment on above: Performed By: #### T AVILA MALIK, AIDA, PBNP, CBC, ANEU, ADIFF, GFR #### [address] [address] Lymphocytes/100 WBC (Bld) 13.5 % Low 20.0-40.0 [facility] Comment on above: Performed By: #### T AVILA MALIK, AIDA, PBNP, CBC, ANEU, ADIFF, GFR #### [address] [address] Monocyte, Absolute 0.8 10 3/mcL Normal 0.1-1.4 [facility] Comment on above: Performed By: #### T AVILA MALIK, CMP, PBNP, CBC, ANEU, ADIFF, GFR #### [address] [address] Monocytes/100 WBC (Bld) 8.7 % Normal 2.0-13.0 [facility] Comment on above: Performed By: #### T AVILA MALIK, CMP, PBNP, CBC, ANEU, ADIFF, GFR #### [address] [address] Neutrophils/100 WBC (Bld) 75.6 % High 50.0-75.0 [facility] Comment on above: Performed By: #### T AVILA MALIK, AIDA, PBNP, CBC, ANEU, ADIFF, GFR #### [address] [address] .GFRon 04-11-2024 GFR Non- >60 Normal [facility] Comment on above: Result Comment: GFR Population mean for , Non- Americans Ages 20-29 = 116 mL/min/1.73 sq.m. Ages 30-39 = 107 mL/min/1.73 sq.m. Ages 40-49 = 99 mL/min/1.73 sq.m. Ages 50-59 = 93 mL/min/1.73 sq.m. Ages 60-69 = 85 mL/min/1.73 sq.m. Ages 70+ = 75 mL/min/1.73 sq.m. Chronic Kidney Disease: Less than 60 mL/min/1.73 square meters End Stage Renal Disease: Less than 15 mL/min/1.73 square meters Performed By: #### T AVILA MALIK, AIDA, PBNP, CBC, ANEU, ADIFF, GFR #### [address] [address] GFR >60 Normal [facility] Comment on above: Result Comment: GFR Population mean for , Non- Americans Ages 20-29 = 116 mL/min/1.73 sq.m. Ages 30-39 = 107 mL/min/1.73 sq.m. Ages 40-49 = 99 mL/min/1.73 sq.m. Ages 50-59 = 93 mL/min/1.73 sq.m. Ages 60-69 = 85 mL/min/1.73 sq.m. Ages 70+ = 75 mL/min/1.73 sq.m. Chronic Kidney Disease: Less than 60 mL/min/1.73 square meters End Stage Renal Disease: Less than 15 mL/min/1.73 square meters Performed By: #### T AVILA MALIK, CMP, PBNP, CBC, ANEU, ADIFF, GFR #### [address] [address] .MDWon 04-11-2024 Monocyte Distribution Width 16.88 Normal 0.00-20.00 [facility] Comment on above: Result Comment: For ED adult patients suspected of sepsis, MDW<=20.0 does not rule out sepsis or risk of sepsis Performed By: #### T AVILA MALIK, AIDA, PBNP, CBC, ANEU, ADIFF, GFR #### [address] [address] .NEUABSon 04-11-2024 Neutrophil, Absolute 7.4 10 3/mcL Normal 2.3-8.1 [facility] Comment on above: Performed By: #### T AVILA MALIK, AIDA, PBNP, CBC, ANEU, ADIFF, GFR #### [address] [address] BMPon 04-11-2024 BUN/Creatinine Ratio 19.8 ratio Normal 10.0-22.0 [facility] Comment on above: Performed By: #### T AVILA MALIK, AIDA, PBNP, CBC, ANEU, ADIFF, GFR #### [place] [id number] Calcium [Mass/Vol] 9.1 mg/dL Normal 8.7-10.4 [facility] Comment on above: Performed By: #### T AVILA MALIK, AIDA, PBNP, CBC, ANEU, ADIFF, GFR #### [address] [address] Chloride [Moles/Vol] 98 mmol/L Normal 98-110 [facility] Comment on above: Performed By: #### T AVILA MALIK, AIDA, PBNP, CBC, ANEU, ADIFF, GFR #### [place] [id number] CO2 [Moles/Vol] 26 mmol/L Normal 22-32 [facility] Comment on above: Performed By: #### T AVILA MALIK, AIDA, PBNP, CBC, ANEU, ADIFF, GFR #### [address] [address] Creatinine [Mass/Vol] 0.81 mg/dL Normal 0.60-1.40 [facility] Comment on above: Result Comment: Test ing performed on 3Funnel analyzer using enzymatic creatinine methodology. Performed By: #### T AVILA MALIK, AIDA, PBNP, CBC, ANEU, ADIFF, GFR #### [address] [address] Electrolyte Balance 9.0 mEq/L Normal 4.0-15.0 [facility] Comment on above: Performed By: #### T AVILA MALIK, AIDA, PBNP, CBC, ANEU, ADIFF, GFR #### [address] [address] Glucose [Mass/Vol] 409 mg/dL Critically abnormal 70-110 [facility] Comment on above: Performed By: #### T AVILA MALIK, AIDA, PBNP, CBC, ANEU, ADIFF, GFR #### [address] [address] Potassium [Moles/Vol] 4.1 mmol/L Normal 3.5-5.0 [facility] Comment on above: Performed By: #### T AVILA MALIK, AIDA, PBNP, CBC, ANEU, ADIFF, GFR #### [address] [address] Sodium [Moles/Vol] 133 mmol/L Low 136-145 [facility] Comment on above: Performed By: #### T AVILA MALIK, AIDA, PBNP, CBC, ANEU, ADIFF, GFR #### [address] [address] Urea nitrogen [Mass/Vol] 16.0 mg/dL Normal 8.0-22.0 [facility] Comment on above: Performed By: #### T AVILA MALIK, AIDA, PBNP, CBC, ANEU, ADIFF, GFR #### [address] [address] CBCon 04-11-2024 Erythrocyte distribution width (RBC) [Ratio] 13.0 % Normal 11.5-15.5 [facility] Comment on above: Performed By: #### T AVILA MALIK, AIDA, PBNP, CBC, ANEU, ADIFF, GFR #### [place] [address] Hematocrit (Bld) [Volume fraction] 39.7 % Low 40.0-52.0 [facility] Comment on above: Performed By: #### T AVILA MALIK, AIDA, PBNP, CBC, ANEU, ADIFF, GFR #### [place] [address] Hgb 13.9 G/dL Normal 13.0-17.5 [facility] Comment on above: Performed By: #### T AVILA MALIK, AIDA, PBNP, CBC, ANEU, ADIFF, GFR #### [place] [address] MCH (RBC) [Entitic mass] 32.9 pg Normal 27.0-33.0 [facility] Comment on above: Performed By: #### T AVILA MALIK, AIDA, PBNP, CBC, ANEU, ADIFF, GFR #### [place] [address] MCHC 34.9 G/dL Normal 32.0-36.0 [facility] Comment on above: Performed By: #### T AVILA MALIK, AIDA, PBNP, CBC, ANEU, ADIFF, GFR #### [place] [address] MCV (RBC) [Entitic vol] 94.2 fL Normal 81.0-100.0 [facility] Comment on above: Performed By: #### T AVILA MALIK, AIDA, PBNP, CBC, ANEU, ADIFF, GFR #### [place] [id number] Platelet 198 10 3/mcL Normal 150-450 [facility] Comment on above: Performed By: #### T AVILA MALIK, AIDA, PBNP, CBC, ANEU, ADIFF, GFR #### [place] [address] Platelet mean volume (Bld) [Entitic vol] 8.3 fL Normal 6.4-10.5 [facility] Comment on above: Performed By: #### T AVILA MALIK, CMP, PBNP, CBC, ANEU, ADIFF, GFR #### [facility] [address] [place] [address] RBC 4.22 10 6/mcL Low 4.50-6.00 [facility] Comment on above: Performed By: #### T AVILA MALIK, CMP, PBNP, CBC, ANEU, ADIFF, GFR #### [facility] [address] [place] [address] WBC 9.8 10 3/mcL Normal 4.5-10.8 [facility] Comment on above: Performed By: #### T AVILA MALIK, CMP, PBNP, CBC, ANEU, ADIFF, GFR #### [address] [address] LABORATORYOrdered By: Kennedy Lind on 04-11-2024 Blood Glucose Testing Reason Symptoms of hyperglycemia (04/11/24 4:47 AM) [facility] Work Phone: Glucose [Mass/Vol] 449 mg/dL Invalid Interpretation Code 70 - 110 mg/dL [facility] Work Phone: LABORATORYOrdered By: SYSTEM SYSTEM on 04-11-2024 Basophils (Bld) [#/Vol] 0.1 103/mcL Normal 0.0 - 0.3 10^3/mcL [facility] Workflow SS Basophils/100 WBC (Bld) 0.6 % Normal 0.0 - 2.5 % [facility] Workflow SS Calcium [Mass/Vol] 9.1 mg/dL Normal 8.7 - 10. 4 mg/dL [facility] ADM SS Chloride [Moles/Vol] 98 mmol/L Normal 98 - 11 0 mEq/L [facility] ADM SS CO2 [Moles/Vol] 26 mmol/L Normal 22 - 32 mEq/L [facility] ADM SS Creatinine [Mass/Vol] 0.81 mg/dL Normal 0.60 - 1.40 mg/dL [facility] ADM SS Comment on above: Interpretive Data: T esting performed on 3Funnel analyzer using enzymatic creatinine methodology. Electrolyte Balance 9.0 mEq/L Normal 4.0 - 15 .0 mEq/L ADM Eosinophils (Bld) [#/Vol] 0.2 103/mcL Normal 0.0 - 0.7 10^3/mcL Workflow Eosinophils/100 WBC (Bld) 1.6 % Normal 0.0 - 6.0 % Workflow Erythrocyte distribution width (RBC) [Ratio] 13.0 % Normal 11.5 - 15.5 % Workflow GFR/1.73 sq M.predicted among blacks MDRD (S/P/Bld) [Vol rate/Area] ml/min/1.73sqm Invalid Interpretation Code [facility] Comment on above: Interpretive Data: GFR Population mean for , Non- Americans Ages 20-29 = 116 mL/min/1.73 sq.m. Ages 30-39 = 107 mL/min/1.73 sq.m. Ages 40-49 = 99 mL/min/1.73 sq.m. Ages 50-59 = 93 mL/min/1.73 sq.m. Ages 60-69 = 85 mL/min/1.73 sq.m. Ages 70+ = 75 mL/min/1.73 sq.m. Chronic Kidney Disease: Less than 60 mL/min/1.73 square meters End Stage Renal Disease: Less than 15 mL/min/1.73 square meters GFR/1.73 sq M.predicted among non-blacks MDRD (S/P/Bld) [Vol rate/Area] ml/min/1.73sqm Invalid Interpretation Code [facility] Comment on above: Interpretive Data: GFR Population mean for , Non- Americans Ages 20-29 = 116 mL/min/1.73 sq.m. Ages 30-39 = 107 mL/min/1.73 sq.m. Ages 40-49 = 99 mL/min/1.73 sq.m. Ages 50-59 = 93 mL/min/1.73 sq.m. Ages 60-69 = 85 mL/min/1.73 sq.m. Ages 70+ = 75 mL/min/1.73 sq.m. Chronic Kidney Disease: Less than 60 mL/min/1.73 square meters End Stage Renal Disease: Less than 15 mL/min/1.73 square meters Glucose [Mass/Vol] 409 mg/dL Invalid Interpretation Code 70 - 110 mg/dL AH ADM SS Hematocrit (Bld) [Volume fraction] 39.7 % Low 40.0 - 52.0 % AH Workflow SS Hemoglobin (Bld) [Mass/Vol] 13.9 G/dL Normal 13.0 - 17.5 G/dL AH Workflow SS Lymphocytes (Bld) [#/Vol] 1.3 103/mcL Normal 0.9 - 4.3 10^3/mcL [facility] Workflow SS Lymphocytes/100 WBC (Bld) 13.5 % Low 20.0 - 40.0 % AH Workflow SS MCH (RBC) [Entitic mass] 32.9 pg Normal 27.0 - 33.0 pg AH Workflow SS MCHC 34.9 G/dL Normal 32.0 - 36.0 G/dL [facility] Workflow SS MCV (RBC) [Entitic vol] 94.2 fL Normal 81.0 - 100.0 fL [facility] Workflow SS Monocyte distribution width Auto (Bld) [Entitic vol] 16.88 1 Normal 0.00 - 20.00 [facility] Workflow SS Comment on above: Result Comment: For ED adult patients suspected of sepsis, MDW<=20.0 does not rule out sepsis or risk of sepsis Monocytes (Bld) [#/Vol] 0.8 103/mcL Normal 0.1 - 1.4 10^3/mcL [facility] Workflow SS Monocytes/100 WBC (Bld) 8.7 % Normal 2.0 - 13.0 % AH Workflow SS Neutrophils (Bld) [#/Vol] 7.4 103/mcL Normal 2.3 - 8.1 10^3/mcL AH Workflow SS Neutrophils/100 WBC (Bld) 75.6 % High 50.0 - 75.0 % AH Workflow SS Platelet mean volume (Bld) [Entitic vol] 8.3 fL Normal 6.4 - 10.5 fL AH Workflow SS Platelets (Bld) [#/Vol] 198 103/mcL Normal 150 - 450 10^3/mcL AH Workflow SS Potassium [Moles/Vol] 4.1 mmol/L Normal 3.5 - 5.0 mEq/L AH ADM SS RBC (Bld) [#/Vol] 4.22 106/mcL Low 4.50 - 6.0 0 10^6/mcL AH Workflow SS Sodium [Moles/Vol] 133 mmol/L Low 136 - 145 mEq/L AH ADM SS Urea nitrogen [Mass/Vol] 16.0 mg/dL Normal 8.0 - 22.0 mg/dL AH ADM SS Urea nitrogen/Creatinine [Mass ratio] 19.8 ratio Normal 10.0 - 22.0 ratio AH ADM SS WBC (Bld) [#/Vol] 9.8 103/mcL Normal 4.5 - 10.8 10^3/mcL AH Workflow SS LABORATORYOrdered By: Johnny Merino on 04-11-2024 Glucose [Mass/Vol] 165 mg/dL High 70 - 110 mg/dL [facility] Work Phone: XR FOOT MINIMUM 3 VIEWS RIGH Ton 04-11-2024 XR FOOT MINIMUM 3 VIEWS RIGHT ORIGINAL EXAMINATION: THREE XRAY VIEWS OF THE RIGHT FOOT 04/11/2024 3:06 am COMPARISON: None. HISTORY: ORDERING SYSTEM PROVIDED HISTORY: Reason for Exam: pain FINDINGS: No acute fracture or dislocation. There is minimal periarticular erosion of the 1st metatarsal at the 1st MTP joint. Additionally there is slight lucency of the 1st distal metatarsal with serpiginous sclerosis. Os peroneum. Minimal degenerative changes scattered about the forefoot and at 1st tarsometatarsal joint. Tiny calcaneal enthesophytes. No significant tibiotalar joint effusion. Minimal soft tissue swelling at the level of the 1st metatarsophalangeal joint. IMPRESSION: There is subtle periarticular erosion at the medial aspect of the distal 1st metatarsal. Additional slight lucency of the 1st metatarsal at this site. Given that this area is subjacent to the known soft tissue ulceration it is difficult to fully exclude osteitis/osteomyelitis. Although the location and beginnings of potential overhanging edge may also represent early gout. Ultimately, consideration for 3 phase bone scan or MRI may be necessary if there is high clinical concern for osteomyelitis. Preliminary Report was Dictated by a Resident Interpreted by: Capo Vasquez MD Preliminary Report By: Cr Watson Electronically signed By Capo Vasquez MD Dictated Date: 04/11/2024 3:09:52 AM Prelim Date: 04/11/2024 3:25:31 AM Sign Date: 04/11/2024 4:01:12 AM Ordering Provider: ROSCOE Eastman [facility] .Auto Diffon 04-06-2024 Basophil, Absolute 0.1 10 3/mcL Normal 0.0-0.3 [facility] Comment on above: Performed By: #### T AVILA MALIK, CMP, PBNP, CBC, ANEU, ADIFF, GFR #### [address] [address] Basophils/100 WBC (Bld) 0.9 % Normal 0.0-2.5 [facility] Comment on above: Performed By: #### T AVILA MALIK, CMP, PBNP, CBC, ANEU, ADIFF, GFR #### [address] [address] Eosinophil, Absolute 0.0 10 3/mcL Normal 0.0-0.7 [facility] Comment on above: Performed By: #### T AVILA MALIK, CMP, PBNP, CBC, ANEU, ADIFF, GFR #### [address] [address] Eosinophils/100 WBC (Bld) 0.2 % Normal 0.0-6.0 [facility] Comment on above: Performed By: #### T AVILA MALIK, CMP, PBNP, CBC, ANEU, ADIFF, GFR #### [address] [address] Lymphocyte, Absolute 1.8 10 3/mcL Normal 0.9-4.3 [facility] Comment on above: Performed By: #### T AVILA MALIK, CMP, PBNP, CBC, ANEU, ADIFF, GFR #### [address] [address] Lymphocytes/100 WBC (Bld) 20.4 % Normal 20.0-40.0 [facility] Comment on above: Performed By: #### T AVILA MALIK, CMP, PBNP, CBC, ANEU, ADIFF, GFR #### [address] [address] Monocyte, Absolute 0.8 10 3/mcL Normal 0.1-1.4 [facility] Comment on above: Performed By: #### T AVILA MALIK, CMP, PBNP, CBC, ANEU, ADIFF, GFR #### [address] [address] Monocytes/100 WBC (Bld) 8.7 % Normal 2.0-13.0 [facility] Comment on above: Performed By: #### T AVILA MALIK, CMP, PBNP, CBC, ANEU, ADIFF, GFR #### [address] [address] Neutrophils/100 WBC (Bld) 69.8 % Normal 50.0-75.0 [facility] Comment on above: Performed By: #### T AVILA MALIK, CMP, PBNP, CBC, ANEU, ADIFF, GFR #### [address] [address] .GFRon 04-06-2024 GFR >60 Normal [facility] Comment on above: Result Comment: GFR Population mean for , Non- Americans Ages 20-29 = 116 mL/min/1.73 sq.m. Ages 30-39 = 107 mL/min/1.73 sq.m. Ages 40-49 = 99 mL/min/1.73 sq.m. Ages 50-59 = 93 mL/min/1.73 sq.m. Ages 60-69 = 85 mL/min/1.73 sq.m. Ages 70+ = 75 mL/min/1.73 sq.m. Chronic Kidney Disease: Less than 60 mL/min/1.73 square meters End Stage Renal Disease: Less than 15 mL/min/1.73 square meters Performed By: #### C MP, GFR #### [address] [address] GFR Non- >60 Normal [facility] Comment on above: Result Comment: GFR Population mean for , Non- Americans Ages 20-29 = 116 mL/min/1.73 sq.m. Ages 30-39 = 107 mL/min/1.73 sq.m. Ages 40-49 = 99 mL/min/1.73 sq.m. Ages 50-59 = 93 mL/min/1.73 sq.m. Ages 60-69 = 85 mL/min/1.73 sq.m. Ages 70+ = 75 mL/min/1.73 sq.m. Chronic Kidney Disease: Less than 60 mL/min/1.73 square meters End Stage Renal Disease: Less than 15 mL/min/1.73 square meters Performed By: #### C MP, GFR #### [place] [id number] .MDWon 04-06-2024 Monocyte Distribution Width 16.75 Normal 0.00-20.00 [facility] Comment on above: Result Comment: For ED adult patients suspected of sepsis, MDW<=20.0 does not rule out sepsis or risk of sepsis Performed By: #### T AVILA MALIK, CMP, PBNP, CBC, ANEU, ADIFF, GFR #### [place] [address] .NEUABSon 04-06-2024 Neutrophil, Absolute 6.3 10 3/mcL Normal 2.3-8.1 [facility] Comment on above: Performed By: #### T AVILA MALIK, AIDA, PBNP, CBC, ANEU, ADIFF, GFR #### [place] [address] CBCon 04-06-2024 Erythrocyte distribution width (RBC) [Ratio] 13.6 % Normal 11.5-15.5 [facility] Comment on above: Performed By: #### T AVILA MALIK, AIDA, PBNP, CBC, ANEU, ADIFF, GFR #### [place] [address] Hematocrit (Bld) [Volume fraction] 44.2 % Normal 40.0-52.0 [facility] Comment on above: Performed By: #### T AVILA MALIK, AIDA, PBNP, CBC, ANEU, ADIFF, GFR #### [place] [address] Hgb 14.8 G/dL Normal 13.0-17.5 [facility] Comment on above: Performed By: #### T AVILA MALIK, AIDA, PBNP, CBC, ANEU, ADIFF, GFR #### [place] [address] MCH (RBC) [Entitic mass] 32.1 pg Normal 27.0-33.0 [facility] Comment on above: Performed By: #### T AVILA MALIK, AIDA, PBNP, CBC, ANEU, ADIFF, GFR #### [place] [address] MCHC 33.6 G/dL Normal 32.0-36.0 [facility] Comment on above: Performed By: #### T AVILA MALIK, AIDA, PBNP, CBC, ANEU, ADIFF, GFR #### [place] [address] MCV (RBC) [Entitic vol] 95.5 fL Normal 81.0-100.0 [facility] Comment on above: Performed By: #### T AVILA MALIK, AIDA, PBNP, CBC, ANEU, ADIFF, GFR #### [place] [address] Platelet 185 10 3/mcL Normal 150-450 [facility] Comment on above: Performed By: #### T AVILA MALIK, AIDA, PBNP, CBC, ANEU, ADIFF, GFR #### [place] [address] Platelet mean volume (Bld) [Entitic vol] 8.3 fL Normal 6.4-10.5 [facility] Comment on above: Performed By: #### T AVILA MALIK, AIDA, PBNP, CBC, ANEU, ADIFF, GFR #### [place] [address] RBC 4.63 10 6/mcL Normal 4.50-6.00 [facility] Comment on above: Performed By: #### T AVILA MALIK, AIDA, PBNP, CBC, ANEU, ADIFF, GFR #### [place] [id number] WBC 9.0 10 3/mcL Normal 4.5-10.8 [facility] Comment on above: Performed By: #### T AVILA MALIK, AIDA, PBNP, CBC, ANEU, ADIFF, GFR #### [place] [address] CMPon 04-06-2024 Albumin Level 3.9 G/dL Normal 3.2-4.8 [facility] Comment on above: Performed By: #### T AVILA MALIK, AIDA, PBNP, CBC, ANEU, ADIFF, GFR #### [address] [address] Albumin/Globulin [Mass ratio] 1.2 {ratio} Normal 0.9-1.6 [facility] Comment on above: Performed By: #### T AVILA MALIK, AIDA, PBNP, CBC, ANEU, ADIFF, GFR #### [address] [address] ALP [Catalytic activity/Vol] 79 U/L Normal 38-126 [facility] Comment on above: Performed By: #### T AVILA MALIK, AIDA, PBNP, CBC, ANEU, ADIFF, GFR #### [address] [address] ALT [Catalytic activity/Vol] 29 U/L Normal 12-55 [facility] Comment on above: Performed By: #### T AVILA MALIK, AIDA, PBNP, CBC, ANEU, ADIFF, GFR #### [address] [address] AST [Catalytic activity/Vol] 32 U/L Normal 8-34 [facility] Comment on above: Performed By: #### T AVILA MALIK, AIDA, PBNP, CBC, ANEU, ADIFF, GFR #### [place] [id number] Bili Total 1.20 mg/dL Normal 0.20-1.20 [facility] Comment on above: Result Comment: Use of this assay is not recommended for patients undergoing treatment with eltrombopag due to the potential for falsely elevated results. Performed By: #### T AVILA MALIK, AIDA, PBNP, CBC, ANEU, ADIFF, GFR #### [place] [id number] BUN/Creatinine Ratio 15.6 ratio Normal 10.0-22.0 [facility] Comment on above: Performed By: #### T AVILA MALIK, CMP, PBNP, CBC, ANEU, ADIFF, GFR #### [address] [address] Calcium [Mass/Vol] 9.8 mg/dL Normal 8.7-10.4 [facility] Comment on above: Performed By: #### T AVILA MALIK, AIDA, PBNP, CBC, ANEU, ADIFF, GFR #### [address] [address] Chloride [Moles/Vol] 106 mmol/L Normal 98-110 [facility] Comment on above: Performed By: #### T AVILA MALIK, AIDA, PBNP, CBC, ANEU, ADIFF, GFR #### [address] [address] CO2 [Moles/Vol] 28 mmol/L Normal 22-32 [facility] Comment on above: Performed By: #### T AVILA MALIK, AIDA, PBNP, CBC, ANEU, ADIFF, GFR #### [address] [address] Creatinine [Mass/Vol] 0.77 mg/dL Normal 0.60-1.40 [facility] Comment on above: Result Comment: Test ing performed on 3Funnel analyzer using enzymatic creatinine methodology. Performed By: #### T AVILA MALIK, AIDA, PBNP, CBC, ANEU, ADIFF, GFR #### [address] [address] Electrolyte Balance 6.0 mEq/L Normal 4.0-15.0 [facility] Comment on above: Performed By: #### T AVILA MALIK, AIDA, PBNP, CBC, ANEU, ADIFF, GFR #### [address] [address] Globulin 3.3 G/dL Normal 1.5-3.8 [facility] Comment on above: Performed By: #### T AVILA MALIK, AIDA, PBNP, CBC, ANEU, ADIFF, GFR #### [address] [address] Glucose [Mass/Vol] 331 mg/dL High 70-110 [facility] Comment on above: Performed By: #### T AVILA MALIK, AIDA, PBNP, CBC, ANEU, ADIFF, GFR #### [address] [address] Potassium [Moles/Vol] 4.6 mmol/L Normal 3.5-5.0 [facility] Comment on above: Performed By: #### T AVILA MALIK, AIDA, PBNP, CBC, ANEU, ADIFF, GFR #### [address] [address] Sodium [Moles/Vol] 140 mmol/L Normal 136-145 [facility] Comment on above: Performed By: #### T AVILA MALIK, AIDA, PBNP, CBC, ANEU, ADIFF, GFR #### [address] [address] Total Protein 7.2 G/dL Normal 5.7-8.2 [facility] Comment on above: Result Comment: No te - New Reference Range in effect 20 Performed By: #### T AVILA MALIK, AIDA, PBNP, CBC, ANEU, ADIFF, GFR #### [address] [address] Urea nitrogen [Mass/Vol] 12.0 mg/dL Normal 8.0-22.0 [facility] Comment on above: Performed By: #### T AVILA MALIK, AIDA, PBNP, CBC, ANEU, ADIFF, GFR #### [address] [address] LABORATORYOrdered By: SYSTEM SYSTEM on 04-06-2024 Troponin I.cardiac DL <= 0.01 ng/mL [Mass/Vol] 20 ng/L Normal 0 - 54 ng/L ADM SS Comment on above: Interpretive Data: High Sensitive Troponin I Reference Ranges: Female: 0-34 ng/L Male: 0-54 ng/L Testing performed on Booster analyzer using direct chemiluminescent technology. Albumin BCP dye [Mass/Vol] 3.9 G/dL Normal 3.2 - 4.8 G/dL ADM SS Albumin/Globulin [Mass ratio] 1.2 {ratio} Normal 0.9 - 1.6 ratio AH ADM SS ALP [Catalytic activity/Vol] 79 U/L Normal 38 - 126 U/L ADM SS ALT No additional P-5'-P [Catalytic activity/Vol] 29 U/L Normal 12 - 55 U/L AH ADM SS AST [Catalytic activity/Vol] 32 U/L Normal 8 - 34 U/L AH ADM SS Basophils (Bld) [#/Vol] 0.1 103/mcL Normal 0.0 - 0.3 10^3/mcL Workflow SS Basophils/100 WBC (Bld) 0.9 % Normal 0.0 - 2.5 % Workflow SS Bilirubin [Mass/Vol] 1.20 mg/dL Normal 0.20 - 1.20 mg/dL ADM SS Comment on above: Interpretive Data: U se of this assay is not recommended for patients undergoing treatment with eltrombopag due to the potential for falsely elevated results. Calcium [Mass/Vol] 9.8 mg/dL Normal 8.7 - 10. 4 mg/dL ADM SS Chloride [Moles/Vol] 106 mmol/L Normal 98 - 11 0 mEq/L ADM SS CO2 [Moles/Vol] 28 mmol/L Normal 22 - 32 mEq/L ADM SS Creatinine [Mass/Vol] 0.77 mg/dL Normal 0.60 - 1.40 mg/dL ADM SS Comment on above: Interpretive Data: T esting performed on 3Funnel analyzer using enzymatic creatinine methodology. Electrolyte Balance 6.0 mEq/L Normal 4.0 - 15 .0 mEq/L ADM SS Eosinophils (Bld) [#/Vol] 0.0 103/mcL Normal 0.0 - 0.7 10^3/mcL Workflow SS Eosinophils/100 WBC (Bld) 0.2 % Normal 0.0 - 6.0 % Workflow SS Erythrocyte distribution width (RBC) [Ratio] 13.6 % Normal 11.5 - 15.5 % Workflow SS GFR/1.73 sq M.predicted among blacks MDRD (S/P/Bld) [Vol rate/Area] ml/min/1.73sqm Invalid Interpretation Code ADM SS Comment on above: Interpretive Data: GFR Population mean for , Non- Americans Ages 20-29 = 116 mL/min/1.73 sq.m. Ages 30-39 = 107 mL/min/1.73 sq.m. Ages 40-49 = 99 mL/min/1.73 sq.m. Ages 50-59 = 93 mL/min/1.73 sq.m. Ages 60-69 = 85 mL/min/1.73 sq.m. Ages 70+ = 75 mL/min/1.73 sq.m. Chronic Kidney Disease: Less than 60 mL/min/1.73 square meters End Stage Renal Disease: Less than 15 mL/min/1.73 square meters GFR/1.73 sq M.predicted among non-blacks MDRD (S/P/Bld) [Vol rate/Area] ml/min/1.73sqm Invalid Interpretation Code ADM SS Comment on above: Interpretive Data: GFR Population mean for , Non- Americans Ages 20-29 = 116 mL/min/1.73 sq.m. Ages 30-39 = 107 mL/min/1.73 sq.m. Ages 40-49 = 99 mL/min/1.73 sq.m. Ages 50-59 = 93 mL/min/1.73 sq.m. Ages 60-69 = 85 mL/min/1.73 sq.m. Ages 70+ = 75 mL/min/1.73 sq.m. Chronic Kidney Disease: Less than 60 mL/min/1.73 square meters End Stage Renal Disease: Less than 15 mL/min/1.73 square meters Globulin 3.3 G/dL Normal 1.5 - 3.8 G/dL ADM SS Glucose [Mass/Vol] 331 mg/dL High 70 - 110 mg/dL ADM SS Hematocrit (Bld) [Volume fraction] 44.2 % Normal 40.0 - 52.0 % Workflow SS Hemoglobin (Bld) [Mass/Vol] 14.8 G/dL Normal 13.0 - 17.5 G/dL Workflow SS Lymphocytes (Bld) [#/Vol] 1.8 103/mcL Normal 0.9 - 4.3 10^3/mcL Workflow SS Lymphocytes/100 WBC (Bld) 20.4 % Normal 20.0 - 40.0 % Workflow SS MCH (RBC) [Entitic mass] 32.1 pg Normal 27.0 - 33.0 pg Workflow SS MCHC 33.6 G/dL Normal 32.0 - 36.0 G/dL AH Workflow SS MCV (RBC) [Entitic vol] 95.5 fL Normal 81.0 - 100.0 fL AH Workflow SS Monocyte distribution width Auto (Bld) [Entitic vol] 16.75 1 Normal 0.00 - 20.00 Workflow SS Comment on above: Result Comment: For ED adult patients suspected of sepsis, MDW<=20.0 does not rule out sepsis or risk of sepsis Monocytes (Bld) [#/Vol] 0.8 103/mcL Normal 0.1 - 1.4 10^3/mcL AH Workflow SS Monocytes/100 WBC (Bld) 8.7 % Normal 2.0 - 13.0 % AH Workflow SS Natriuretic peptide.B prohormone N-Terminal IA [Mass/Vol] 81 pg/mL Normal 0 - 450 pg/mL ADM SS Neutrophils (Bld) [#/Vol] 6.3 103/mcL Normal 2.3 - 8.1 10^3/mcL AH Workflow SS Neutrophils/100 WBC (Bld) 69.8 % Normal 50.0 - 75.0 % AH Workflow SS Platelet mean volume (Bld) [Entitic vol] 8.3 fL Normal 6.4 - 10.5 fL AH Workflow SS Platelets (Bld) [#/Vol] 185 103/mcL Normal 150 - 450 10^3/mcL AH Workflow SS Potassium [Moles/Vol] 4.6 mmol/L Normal 3.5 - 5.0 mEq/L ADM SS Protein [Mass/Vol] 7.2 G/dL Normal 5.7 - 8.2 G/dL ADM SS Comment on above: Interpretive Data: * *Note - New Reference Range in effect 20 RBC (Bld) [#/Vol] 4.63 106/mcL Normal 4.50 - 6.0 0 10^6/mcL Workflow SS Sodium [Moles/Vol] 140 mmol/L Normal 136 - 145 mEq/L ADM SS Troponin I.cardiac DL <= 0.01 ng/mL [Mass/Vol] 20 ng/L Normal 0 - 54 ng/L ADM SS Comment on above: Interpretive Data: High Sensitive Troponin I Reference Ranges: Female: 0-34 ng/L Male: 0-54 ng/L Testing performed on Booster analyzer using direct chemiluminescent technology. Urea nitrogen [Mass/Vol] 12.0 mg/dL Normal 8.0 - 22.0 mg/dL AH ADM SS Urea nitrogen/Creatinine [Mass ratio] 15.6 ratio Normal 10.0 - 22.0 ratio AH ADM SS WBC (Bld) [#/Vol] 9.0 103/mcL Normal 4.5 - 10.8 10^3/mcL AH Workflow SS PBNPon 04-06-2024 Natriuretic peptide B (Bld) [Mass/Vol] 81 pg/mL Normal 0-450 [facility] Comment on above: Performed By: #### T AVILA MALIK, CMP, PBNP, CBC, ANEU, ADIFF, GFR #### [place] [id number] TROPHSon 04-06-2024 High Sensitivity Troponin I 20 ng/L Normal 0-54 [facility] Comment on above: Result Comment: High Sensitive Troponin I Reference Ranges: Female: 0-34 ng/L Male: 0-54 ng/L Testing performed on [employer] IM analyzer using direct chemiluminescent technology. Performed By: #### Tal MALIK #### [place] [address] High Sensitivity Troponin I 20 ng/L Normal 0-54 [facility] Comment on above: Result Comment: High Sensitive Troponin I Reference Ranges: Female: 0-34 ng/L Male: 0-54 ng/L Testing performed on [employer] IM analyzer using direct chemiluminescent technology. Performed By: #### AVILA HOLLAND, AIDA, PBNP, CBC, ANEU, ADIFF, GFR #### [place] [address] XR CHEST 1 VIEWon 04-06-2024 XR CHEST 1 VIEW ORIGINAL EXAMINATION: ONE XRAY VIEW OF THE CHEST 04/06/2024 5:02 am COMPARISON: Chest x-ray on 03/29/2024 HISTORY: ORDERING SYSTEM PROVIDED HISTORY: Reason for Exam: chest pain FINDINGS: Sternal wire sutures are intact. The heart size and mediastinal contours are normal. There is no acute lung infiltrate or edema. No pneumothorax or pleural fluid is present. There is no acute skeletal abnormality. IMPRESSION: No acute cardiopulmonary process. Interpreted by: Jaret Damian MD Preliminary Report By: Jaret Damian MD Electronically signed By Jaret Damian MD Dictated Date: 04/06/2024 5:08:00 AM Prelim Date: 04/06/2024 5:08:54 AM Sign Date: 04/06/2024 5:08:54 AM Ordering Provider: ROSCOE Eastman [facility] .Auto Diffon 03-29-2024 Basophil, Absolute 0.1 10 3/mcL Normal 0.0-0.3 [facility] Comment on above: Performed By: #### T KING #### [address] [address] Basophils/100 WBC (Bld) 1.1 % Normal 0.0-2.5 [facility] Comment on above: Performed By: #### T KING #### [address] [address] Eosinophil, Absolute 0.1 10 3/mcL Normal 0.0-0.7 [facility] Comment on above: Performed By: #### T KING #### [address] [address] Eosinophils/100 WBC (Bld) 1.5 % Normal 0.0-6.0 [facility] Comment on above: Performed By: #### T KING #### [address] [address] Lymphocyte, Absolute 2.1 10 3/mcL Normal 0.9-4.3 [facility] Comment on above: Performed By: #### T KING #### [address] [address] Lymphocytes/100 WBC (Bld) 25.4 % Normal 20.0-40.0 [facility] Comment on above: Performed By: #### T KING #### [address] [address] Monocyte, Absolute 0.8 10 3/mcL Normal 0.1-1.4 [facility] Comment on above: Performed By: #### T KING #### [address] [address] Monocytes/100 WBC (Bld) 10.0 % Normal 2.0-13.0 [facility] Comment on above: Performed By: #### T KING #### [address] [address] Neutrophils/100 WBC (Bld) 62.0 % Normal 50.0-75.0 [facility] Comment on above: Performed By: #### T KING #### [address] [address] .GFRon 03-29-2024 GFR >60 Normal [facility] Comment on above: Result Comment: GFR Population mean for , Non- Americans Ages 20-29 = 116 mL/min/1.73 sq.m. Ages 30-39 = 107 mL/min/1.73 sq.m. Ages 40-49 = 99 mL/min/1.73 sq.m. Ages 50-59 = 93 mL/min/1.73 sq.m. Ages 60-69 = 85 mL/min/1.73 sq.m. Ages 70+ = 75 mL/min/1.73 sq.m. Chronic Kidney Disease: Less than 60 mL/min/1.73 square meters End Stage Renal Disease: Less than 15 mL/min/1.73 square meters Performed By: #### T KING #### [address] [address] GFR Non- >60 Normal [facility] Comment on above: Result Comment: GFR Population mean for , Non- Americans Ages 20-29 = 116 mL/min/1.73 sq.m. Ages 30-39 = 107 mL/min/1.73 sq.m. Ages 40-49 = 99 mL/min/1.73 sq.m. Ages 50-59 = 93 mL/min/1.73 sq.m. Ages 60-69 = 85 mL/min/1.73 sq.m. Ages 70+ = 75 mL/min/1.73 sq.m. Chronic Kidney Disease: Less than 60 mL/min/1.73 square meters End Stage Renal Disease: Less than 15 mL/min/1.73 square meters Performed By: #### T KING #### [address] [address] .MDWon 03-29-2024 Monocyte Distribution Width 16.69 Normal 0.00-20.00 [facility] Comment on above: Result Comment: For ED adult patients suspected of sepsis, MDW<=20.0 does not rule out sepsis or risk of sepsis Performed By: #### T KING #### [address] [address] .NEUABSon 03-29-2024 Neutrophil, Absolute 5.2 10 3/mcL Normal 2.3-8.1 [facility] Comment on above: Performed By: #### T KING #### [facility] [address] [place] [address] BUPRENORPHINE SCREEN TO CONF IRM,URINEon 03-29-2024 Buprenorphine Screen Ql (U) Negative Normal Cutoff 5 [facility] Comment on above: Result Comment: Presumptive Negative by immunoassay. Testing by mass spectrometry is available on request. Performed By: #### B UPRS #### [employer]) ([id number]) [address] [place] [address] Drug screen comment (U) [Interp] See Note Normal [facility] Comment on above: Result Comment: INTE RPRETIVE INFORMATION: The absence of expected drug(s) and/or drug metabolite(s) may indicate non-compliance, inappropriate timing of specimen collection relative to drug administration, poor drug absorption, diluted/adulterated urine, or limitations of testing. The concentration at which the screening test can detect a drug or metabolite varies. Specimens for which drugs or drug classes are detected by the screen are reflexed to a second, more specific technology (GC/MS and/or LC-MS/MS). The concentration value must be greater than or equal to the cutoff to be reported as positive. Interpretive questions should be directed to the laboratory. For medical purposes only; not valid for forensic use. Performed By: [employer] [address] [place] [address] Account Consultant: Luz Maria Donato MD, PhD CLIA Number: [id number] Performed By: #### B UPRS #### [employer] ([facility]) ([id number]) [address] [place] [address] CBCon 03-29-2024 Erythrocyte distribution width (RBC) [Ratio] 13.7 % Normal 11.5-15.5 [facility] Comment on above: Performed By: #### T KING #### [place] [address] Hematocrit (Bld) [Volume fraction] 42.1 % Normal 40.0-52.0 [facility] Comment on above: Performed By: #### T KING #### [place] [address] Hgb 14.4 G/dL Normal 13.0-17.5 [facility] Comment on above: Performed By: #### T KING #### [place] [address] MCH (RBC) [Entitic mass] 32.3 pg Normal 27.0-33.0 [facility] Comment on above: Performed By: #### T KING #### [place] [address] MCHC 34.1 G/dL Normal 32.0-36.0 [facility] Comment on above: Performed By: #### T KING #### [place] [address] MCV (RBC) [Entitic vol] 94.6 fL Normal 81.0-100.0 [facility] Comment on above: Performed By: #### T KING #### [place] [address] Platelet 174 10 3/mcL Normal 150-450 [facility] Comment on above: Performed By: #### T KING #### [place] [address] Platelet mean volume (Bld) [Entitic vol] 8.1 fL Normal 6.4-10.5 [facility] Comment on above: Performed By: #### T KING #### [place] [address] RBC 4.45 10 6/mcL Low 4.50-6.00 [facility] Comment on above: Performed By: #### T KING #### [place] [id number] WBC 8.4 10 3/mcL Normal 4.5-10.8 [facility] Comment on above: Performed By: #### T KING #### [address] [address] CMPon 03-29-2024 Albumin Level 4.0 G/dL Normal 3.2-4.8 [facility] Comment on above: Performed By: #### T KING #### [place] [id number] Albumin/Globulin [Mass ratio] 1.2 {ratio} Normal 0.9-1.6 [facility] Comment on above: Performed By: #### T KING #### [address] [address] ALP [Catalytic activity/Vol] 94 U/L Normal 38-126 [facility] Comment on above: Performed By: #### T KING #### [place] [id number] ALT [Catalytic activity/Vol] 38 U/L Normal 12-55 [facility] Comment on above: Performed By: #### T KING #### [place] [id number] AST [Catalytic activity/Vol] 57 U/L High 8-34 [facility] Comment on above: Performed By: #### T KING #### [place] [id number] Bili Total 1.10 mg/dL Normal 0.20-1.20 [facility] Comment on above: Result Comment: Use of this assay is not recommended for patients undergoing treatment with eltrombopag due to the potential for falsely elevated results. Performed By: #### T KING #### [place] [id number] BUN/Creatinine Ratio 21.3 ratio Normal 10.0-22.0 [facility] Comment on above: Performed By: #### T KING #### [place] [id number] Calcium [Mass/Vol] 9.7 mg/dL Normal 8.7-10.4 [facility] Comment on above: Performed By: #### T KING #### [address] [address] Chloride [Moles/Vol] 105 mmol/L Normal 98-110 [facility] Comment on above: Performed By: #### T KING #### [address] [address] CO2 [Moles/Vol] 27 mmol/L Normal 22-32 [facility] Comment on above: Performed By: #### T KING #### [address] [address] Creatinine [Mass/Vol] 0.75 mg/dL Normal 0.60-1.40 [facility] Comment on above: Result Comment: Test ing performed on 3Funnel analyzer using enzymatic creatinine methodology. Performed By: #### T KING #### [address] [address] Electrolyte Balance 9.0 mEq/L Normal 4.0-15.0 [facility] Comment on above: Performed By: #### T KING #### [address] [address] Globulin 3.3 G/dL Normal 1.5-3.8 [facility] Comment on above: Performed By: #### T KING #### [address] [address] Glucose [Mass/Vol] 148 mg/dL High 70-110 [facility] Comment on above: Performed By: #### T KING #### [address] [address] Potassium [Moles/Vol] 3.7 mmol/L Normal 3.5-5.0 [facility] Comment on above: Performed By: #### T KING #### [address] [address] Sodium [Moles/Vol] 141 mmol/L Normal 136-145 [facility] Comment on above: Performed By: #### T KING #### [address] [address] Total Protein 7.3 G/dL Normal 5.7-8.2 [facility] Comment on above: Result Comment: No te - New Reference Range in effect 20 Performed By: #### T KING #### [place] [id number] [place] [address] Urea nitrogen [Mass/Vol] 16.0 mg/dL Normal 8.0-22.0 [facility] Comment on above: Performed By: #### T KING #### [address] [address] DRUG SCREEN,URINEon 03-29-20 24 Amphetamines Screen Ql (U) Negative Normal Presumptive Negative [facility] Comment on above: Order Comment: Drug screen results are presumptive and should not be used to assess compliance with prescribed medication. Contact the performing [facility] laboratory to add-on definitive confirmatory testing if clinically indicated. Toxicology screening results are reported qualitatively. The concentration must ???be greater than or equal to the cutoff to be reported as positive. The concentration at which the screening test can detect an individual drug or metabolite varies. The absence of expected drug(s) and/or drug metabolite(s) may indicate non-compliance, inappropriate timing of specimen collection relative to drug administration, poor drug absorption, diluted/adulterated urine, or limitations of testing. For medical purposes only; not valid for forensic use. Interpretive questions should be directed to the laboratory medical directors. Result Comment: CUTO FF LEVEL: 500 NG/ML Cross-reactivity has been reported with high concentrations of the following drugs: buproprion, chloroquine, chlorpromazine, ephedrine, mephentermine, fenfluramine, phentermine, phenylpropanolamine, pseudoephedrine, and propranolol. Performed By: #### Kate NICOLE #### GALINDO Mustafa ([id number]) [facility] ([facility]) [address] [place] [address] Barbiturates Screen Ql (U) Negative Normal Presumptive Negative [facility] Comment on above: Order Comment: Drug screen results are presumptive and should not be used to assess compliance with prescribed medication. Contact the performing [facility] laboratory to add-on definitive confirmatory testing if clinically indicated. Toxicology screening results are reported qualitatively. The concentration must ???be greater than or equal to the cutoff to be reported as positive. The concentration at which the screening test can detect an individual drug or metabolite varies. The absence of expected drug(s) and/or drug metabolite(s) may indicate non-compliance, inappropriate timing of specimen collection relative to drug administration, poor drug absorption, diluted/adulterated urine, or limitations of testing. For medical purposes only; not valid for forensic use. Interpretive questions should be directed to the laboratory medical directors. Result Comment: CUTO FF LEVEL: 200 NG/ML Performed By: #### D RUG3 #### GALINDO Mustafa ([id number]) [facility] ([facility] [place]) [address] [place] [id number] Benzodiazepines Ql (U) Negative Normal Presumptive Negative [facility] Comment on above: Order Comment: Drug screen results are presumptive and should not be used to assess compliance with prescribed medication. Contact the performing [facility] laboratory to add-on definitive confirmatory testing if clinically indicated. Toxicology screening results are reported qualitatively. The concentration must ???be greater than or equal to the cutoff to be reported as positive. The concentration at which the screening test can detect an individual drug or metabolite varies. The absence of expected drug(s) and/or drug metabolite(s) may indicate non-compliance, inappropriate timing of specimen collection relative to drug administration, poor drug absorption, diluted/adulterated urine, or limitations of testing. For medical purposes only; not valid for forensic use. Interpretive questions should be directed to the laboratory medical directors. Result Comment: CUTO FF LEVEL: 200 NG/ML Performed By: #### D RUG3 #### GALINDO Mustafa ([id number]) [facility] ([facility] [place]) [address] [place] [address]74 Benzoylecgonine Screen Ql (U) Positive Abnormal Presumptive Negative [facility] Comment on above: Order Comment: Drug screen results are presumptive and should not be used to assess compliance with prescribed medication. Contact the performing [facility] laboratory to add-on definitive confirmatory testing if clinically indicated. Toxicology screening results are reported qualitatively. The concentration must ???be greater than or equal to the cutoff to be reported as positive. The concentration at which the screening test can detect an individual drug or metabolite varies. The absence of expected drug(s) and/or drug metabolite(s) may indicate non-compliance, inappropriate timing of specimen collection relative to drug administration, poor drug absorption, diluted/adulterated urine, or limitations of testing. For medical purposes only; not valid for forensic use. Interpretive questions should be directed to the laboratory medical directors. Result Comment: CUTO FF LEVEL: 150 NG/ML Performed By: #### D RUG3 #### GALINDO Mustafa ([id number]) [facility] ([facility] [place]) [address] [place] [address]50 Cannabinoids Screen Ql (U) Negative Normal Presumptive Negative [facility] Comment on above: Order Comment: Drug screen results are presumptive and should not be used to assess compliance with prescribed medication. Contact the performing [facility] laboratory to add-on definitive confirmatory testing if clinically indicated. Toxicology screening results are reported qualitatively. The concentration must ???be greater than or equal to the cutoff to be reported as positive. The concentration at which the screening test can detect an individual drug or metabolite varies. The absence of expected drug(s) and/or drug metabolite(s) may indicate non-compliance, inappropriate timing of specimen collection relative to drug administration, poor drug absorption, diluted/adulterated urine, or limitations of testing. For medical purposes only; not valid for forensic use. Interpretive questions should be directed to the laboratory medical directors. Result Comment: CUTO FF LEVEL: 50 NG/ML Performed By: #### D RUG3 #### GALINDO Mustafa ([id number]) [facility] ([facility] [place]) [address] [place] [address] 25215 fentaNYL+Norfentanyl Screen Ql (U) Negative Normal Presumptive Negative [facility] Comment on above: Order Comment: Drug screen results are presumptive and should not be used to assess compliance with prescribed medication. Contact the performing [facility] laboratory to add-on definitive confirmatory testing if clinically indicated. Toxicology screening results are reported qualitatively. The concentration must ???be greater than or equal to the cutoff to be reported as positive. The concentration at which the screening test can detect an individual drug or metabolite varies. The absence of expected drug(s) and/or drug metabolite(s) may indicate non-compliance, inappropriate timing of specimen collection relative to drug administration, poor drug absorption, diluted/adulterated urine, or limitations of testing. For medical purposes only; not valid for forensic use. Interpretive questions should be directed to the laboratory medical directors. Result Comment: CUTO FF LEVEL: 5 NG/ML Performed By: #### D RUG3 #### GALINDO JARQUIN L ([id number]) [facility] ([facility] [place]) [address] [place] [address] 18730 Methadone Screen Ql (U) Negative Normal Presumptive Negative [facility] Comment on above: Order Comment: Drug screen results are presumptive and should not be used to assess compliance with prescribed medication. Contact the performing [facility] laboratory to add-on definitive confirmatory testing if clinically indicated. Toxicology screening results are reported qualitatively. The concentration must ???be greater than or equal to the cutoff to be reported as positive. The concentration at which the screening test can detect an individual drug or metabolite varies. The absence of expected drug(s) and/or drug metabolite(s) may indicate non-compliance, inappropriate timing of specimen collection relative to drug administration, poor drug absorption, diluted/adulterated urine, or limitations of testing. For medical purposes only; not valid for forensic use. Interpretive questions should be directed to the laboratory medical directors. Result Comment: CUTO FF LEVEL: 150 NG/ML The metabolite M-xxedl-wdcptgqfeecmas (LAAM) is not detected by this method in concentrations that would be found in the urine of patients on LAAM therapy. Performed By: #### Kate RUG3 #### GALINDO JARQUIN L ([id number]) [facility] ([facility] [place]) [address] [place] [address] 48286 Opiates Screen Ql (U) Negative Normal Presumptive Negative [facility] Comment on above: Order Comment: Drug screen results are presumptive and should not be used to assess compliance with prescribed medication. Contact the performing [facility] laboratory to add-on definitive confirmatory testing if clinically indicated. Toxicology screening results are reported qualitatively. The concentration must ???be greater than or equal to the cutoff to be reported as positive. The concentration at which the screening test can detect an individual drug or metabolite varies. The absence of expected drug(s) and/or drug metabolite(s) may indicate non-compliance, inappropriate timing of specimen collection relative to drug administration, poor drug absorption, diluted/adulterated urine, or limitations of testing. For medical purposes only; not valid for forensic use. Interpretive questions should be directed to the laboratory medical directors. Result Comment: CUTO FF LEVEL: 300 NG/ML The opiate screen does not detect fentanyl, meperidine, or tramadol. Oxycodone is not consistently detected (refer to Oxycodone Screen, Urine result). Performed By: #### Kate RUG3 #### GALINDO Mustafa ([id number]) [facility] ([facility] [place]) [address] [place], [place] [id number] oxyCODONE+oxyMORphon e Screen Ql (U) Negative Normal Presumptive Negative [facility] Comment on above: Order Comment: Drug screen results are presumptive and should not be used to assess compliance with prescribed medication. Contact the performing [facility] laboratory to add-on definitive confirmatory testing if clinically indicated. Toxicology screening results are reported qualitatively. The concentration must ???be greater than or equal to the cutoff to be reported as positive. The concentration at which the screening test can detect an individual drug or metabolite varies. The absence of expected drug(s) and/or drug metabolite(s) may indicate non-compliance, inappropriate timing of specimen collection relative to drug administration, poor drug absorption, diluted/adulterated urine, or limitations of testing. For medical purposes only; not valid for forensic use. Interpretive questions should be directed to the laboratory medical directors. Result Comment: CUTO FF LEVEL: 100 NG/ML This test will accurately detect both oxycodone and oxymorphone. Performed By: #### Kate RUG3 ###Lisandro Mustafa ([id number]) [facility] ([facility] [place]) [address] [place] [address] 91463 Phencyclidine Ql (U) Negative Normal Presump tive Negative [facility] Comment on above: Order Comment: Drug screen results are presumptive and should not be used to assess compliance with prescribed medication. Contact the performing [facility] laboratory to add-on definitive confirmatory testing if clinically indicated. Toxicology screening results are reported qualitatively. The concentration must ???be greater than or equal to the cutoff to be reported as positive. The concentration at which the screening test can detect an individual drug or metabolite varies. The absence of expected drug(s) and/or drug metabolite(s) may indicate non-compliance, inappropriate timing of specimen collection relative to drug administration, poor drug absorption, diluted/adulterated urine, or limitations of testing. For medical purposes only; not valid for forensic use. Interpretive questions should be directed to the laboratory medical directors. Result Comment: CUTO FF LEVEL: 25 NG/ML Cross-reactivity has been reported with dextromethorphan. Performed By: #### D RUG3 #### GALINDO Mustafa ([id number]) [facility] ([facility] [place]) [address] [place] [address] 65199 Gabapentinon 03-29-2024 Gabapentin (U) [Mass/Vol] <5.0 Normal [facility] Comment on above: Result Comment: INTE RPRETIVE INFORMATION: Gabapentin, Urine Positive cutoff: 5.0 ug/mL For medical purposes only; not valid for forensic use. The absence of expected drug(s) and/or drug metabolite(s) may indicate non-compliance, inappropriate timing of specimen collection relative to drug administration, poor drug absorption, diluted/adulterated urine, or limitations of testing. The concentration value must be greater than or equal to the cutoff to be reported as a quantitative result. Interpretive questions should be directed to the laboratory. This test was developed and its performance characteristics determined by [facility]. It has not been cleared or approved by the [place] Food and Drug Administration. This test was performed in a CLIA certified laboratory and is intended for clinical purposes. Performed By: [facility] [address] [place] [address] Account Consultant: Luz Maria Donato MD, PhD CLIA Number: [id number] Performed By: #### 5 9680-9 #### [facility] ([place]) ([id number]) [address] [place], [place] [id number] LABORATORYOrdered By: SYSTEM SYSTEM on 03-29-2024 Troponin I.cardiac DL <= 0.01 ng/mL [Mass/Vol] 16 ng/L Normal 0 - 54 ng/L [facility] Comment on above: Interpretive Data: High Sensitive Troponin I Reference Ranges: Female: 0-34 ng/L Male: 0-54 ng/L Testing performed on Booster analyzer using direct chemiluminescent technology. Albumin BCP dye [Mass/Vol] 4.0 G/dL Normal 3.2 - 4.8 G/dL ADM SS Albumin/Globulin [Mass ratio] 1.2 {ratio} Normal 0.9 - 1.6 ratio ADM SS ALP [Catalytic activity/Vol] 94 U/L Normal 38 - 126 U/L ADM SS ALT No additional P-5'-P [Catalytic activity/Vol] 38 U/L Normal 12 - 55 U/L AH ADM SS AST [Catalytic activity/Vol] 57 U/L High 8 - 34 U/L AH ADM SS Basophils (Bld) [#/Vol] 0.1 103/mcL Normal 0.0 - 0.3 10^3/mcL AH Workflow SS Basophils/100 WBC (Bld) 1.1 % Normal 0.0 - 2.5 % Workflow SS Bilirubin [Mass/Vol] 1.10 mg/dL Normal 0.20 - 1.20 mg/dL ADM SS Comment on above: Interpretive Data: U se of this assay is not recommended for patients undergoing treatment with eltrombopag due to the potential for falsely elevated results. Calcium [Mass/Vol] 9.7 mg/dL Normal 8.7 - 10. 4 mg/dL ADM SS Chloride [Moles/Vol] 105 mmol/L Normal 98 - 11 0 mEq/L ADM SS CO2 [Moles/Vol] 27 mmol/L Normal 22 - 32 mEq/L ADM SS Creatinine [Mass/Vol] 0.75 mg/dL Normal 0.60 - 1.40 mg/dL ADM SS Comment on above: Interpretive Data: T esting performed on [employer] analyzer using enzymatic creatinine methodology. Electrolyte Balance 9.0 mEq/L Normal 4.0 - 15 .0 mEq/L ADM SS Eosinophils (Bld) [#/Vol] 0.1 103/mcL Normal 0.0 - 0.7 10^3/mcL Workflow SS Eosinophils/100 WBC (Bld) 1.5 % Normal 0.0 - 6.0 % Workflow SS Erythrocyte distribution width (RBC) [Ratio] 13.7 % Normal 11.5 - 15.5 % Workflow SS GFR/1.73 sq M.predicted among blacks MDRD (S/P/Bld) [Vol rate/Area] ml/min/1.73sqm Invalid Interpretation Code ADM SS Comment on above: Interpretive Data: GFR Population mean for , Non- Americans Ages 20-29 = 116 mL/min/1.73 sq.m. Ages 30-39 = 107 mL/min/1.73 sq.m. Ages 40-49 = 99 mL/min/1.73 sq.m. Ages 50-59 = 93 mL/min/1.73 sq.m. Ages 60-69 = 85 mL/min/1.73 sq.m. Ages 70+ = 75 mL/min/1.73 sq.m. Chronic Kidney Disease: Less than 60 mL/min/1.73 square meters End Stage Renal Disease: Less than 15 mL/min/1.73 square meters GFR/1.73 sq M.predicted among non-blacks MDRD (S/P/Bld) [Vol rate/Area] ml/min/1.73sqm Invalid Interpretation Code ADM SS Comment on above: Interpretive Data: GFR Population mean for , Non- Americans Ages 20-29 = 116 mL/min/1.73 sq.m. Ages 30-39 = 107 mL/min/1.73 sq.m. Ages 40-49 = 99 mL/min/1.73 sq.m. Ages 50-59 = 93 mL/min/1.73 sq.m. Ages 60-69 = 85 mL/min/1.73 sq.m. Ages 70+ = 75 mL/min/1.73 sq.m. Chronic Kidney Disease: Less than 60 mL/min/1.73 square meters End Stage Renal Disease: Less than 15 mL/min/1.73 square meters Globulin 3.3 G/dL Normal 1.5 - 3.8 G/dL ADM SS Glucose [Mass/Vol] 148 mg/dL High 70 - 110 mg/dL ADM SS Hematocrit (Bld) [Volume fraction] 42.1 % Normal 40.0 - 52.0 % Workflow SS Hemoglobin (Bld) [Mass/Vol] 14.4 G/dL Normal 13.0 - 17.5 G/dL Workflow SS Lymphocytes (Bld) [#/Vol] 2.1 103/mcL Normal 0.9 - 4.3 10^3/mcL Workflow SS Lymphocytes/100 WBC (Bld) 25.4 % Normal 20.0 - 40.0 % Workflow SS MCH (RBC) [Entitic mass] 32.3 pg Normal 27.0 - 33.0 pg Workflow SS MCHC 34.1 G/dL Normal 32.0 - 36.0 G/dL Workflow SS MCV (RBC) [Entitic vol] 94.6 fL Normal 81.0 - 100.0 fL Workflow SS Monocyte distribution width Auto (Bld) [Entitic vol] 16.69 1 Normal 0.00 - 20.00 Workflow SS Comment on above: Result Comment: For ED adult patients suspected of sepsis, MDW<=20.0 does not rule out sepsis or risk of sepsis Monocytes (Bld) [#/Vol] 0.8 103/mcL Normal 0.1 - 1.4 10^3/mcL AH Workflow SS Monocytes/100 WBC (Bld) 10.0 % Normal 2.0 - 13.0 % AH Workflow SS Natriuretic peptide.B prohormone N-Terminal IA [Mass/Vol] 110 pg/mL Normal 0 - 450 pg/mL ADM SS Neutrophils (Bld) [#/Vol] 5.2 103/mcL Normal 2.3 - 8.1 10^3/mcL AH Workflow SS Neutrophils/100 WBC (Bld) 62.0 % Normal 50.0 - 75.0 % AH Workflow SS Platelet mean volume (Bld) [Entitic vol] 8.1 fL Normal 6.4 - 10.5 fL Workflow SS Platelets (Bld) [#/Vol] 174 103/mcL Normal 150 - 450 10^3/mcL AH Workflow SS Potassium [Moles/Vol] 3.7 mmol/L Normal 3.5 - 5.0 mEq/L ADM SS Protein [Mass/Vol] 7.3 G/dL Normal 5.7 - 8.2 G/dL ADM SS Comment on above: Interpretive Data: * *Note - New Reference Range in effect 20 RBC (Bld) [#/Vol] 4.45 106/mcL Low 4.50 - 6.0 0 10^6/mcL Workflow SS Sodium [Moles/Vol] 141 mmol/L Normal 136 - 145 mEq/L ADM SS Troponin I.cardiac DL <= 0.01 ng/mL [Mass/Vol] 18 ng/L Normal 0 - 54 ng/L ADM SS Comment on above: Interpretive Data: High Sensitive Troponin I Reference Ranges: Female: 0-34 ng/L Male: 0-54 ng/L Testing performed on Booster analyzer using direct chemiluminescent technology. Urea nitrogen [Mass/Vol] 16.0 mg/dL Normal 8.0 - 22.0 mg/dL ADM SS Urea nitrogen/Creatinine [Mass ratio] 21.3 ratio Normal 10.0 - 22.0 ratio AH ADM SS WBC (Bld) [#/Vol] 8.4 103/mcL Normal 4.5 - 10.8 10^3/mcL AH Workflow SS PBNPon 03-29-2024 Natriuretic peptide B (Bld) [Mass/Vol] 110 pg/mL Normal 0-450 [facility] Comment on above: Performed By: #### T KING #### [place] [id number] TROPHSon 03-29-2024 High Sensitivity Troponin I 16 ng/L Normal 0-54 [facility] Comment on above: Result Comment: High Sensitive Troponin I Reference Ranges: Female: 0-34 ng/L Male: 0-54 ng/L Testing performed on [employer] IM analyzer using direct chemiluminescent technology. Performed By: #### T KING #### [place] [id number] High Sensitivity Troponin I 18 ng/L Normal 0-54 [facility] Comment on above: Result Comment: High Sensitive Troponin I Reference Ranges: Female: 0-34 ng/L Male: 0-54 ng/L Testing performed on [employer] IM analyzer using direct chemiluminescent technology. Performed By: #### T KING #### [place] [id number] XR CHEST 1 VIEWon 03-29-2024 XR CHEST 1 VIEW ORIGINAL EXAMINATION: ONE XRAY VIEW OF THE CHEST 03/29/2024 3:30 am COMPARISON: Chest x-ray on 09/19/2023 HISTORY: ORDERING SYSTEM PROVIDED HISTORY: Reason for Exam: chest pain FINDINGS: Sternal wire sutures are intact. The heart size is normal. 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 There is no acute lung infiltrate or edema. No pneumothorax or pleural fluid is present. There is no acute skeletal abnormality. IMPRESSION: No acute cardiopulmonary process. Interpreted by: Jaret Damian MD Preliminary Report By: Jaret Damian MD Electronically signed By Jaret Damian MD Dictated Date: 03/29/2024 3:31:20 AM Prelim Date: 03/29/2024 3:32:53 AM Sign Date: 03/29/2024 3:32:53 AM Ordering Provider: ROSCOE MAHER [facility] MAIN ED PROV NOTEon 03-28-2024 ED PROV NOTE HNO ID: [id number] Author: CHELSI SAWYER MD Service: Emergency Medicine Author Type: Physician Type: ED Provider Notes Filed: 03/28/2024 00:33 Note Text: ED CONTINUATION OF CARE NOTE Code Status: Prior Assumed care from: Conrad Lala PA-C Presentation / Findings / Interventions / Plan / Items to Follow Up: Patient was initially managed primarily by my EFE. I assume primary management pending the repeat cardiac troponin. This is come back unremarkable, no significant delta change. No acute abnormality on the EKG. No signs of cardiac injury at this time. He remains chest pain-free. Discharged home. ED Course as of 03/28/24134 Chelsi Sawyer's Documentation TueMar 28, 2024 013 Patient became irate at time of discharge, requesting detox for his cocaine abuse. He insisted that we transfer him to the [facility] for this. I did speak with the [facility] directly, and placed them on speaker phone in the room with the patient, and [facility] confirmed they do not do cocaine detox. Patient is accepting of this. And is willing now to be discharged. Others' Documentation TueMar 27, 2024 2148 I went in to evaluate the patient however they are not currently in the room. [ELINOR] 2332 Patient was reevaluated. Sitting comfortably in bed. Notes improvement of symptoms. Was provided with food and water. [ELINOR] 5139 Was provided with print off of resources for drug and alcohol rehab facilities. [ELINOR] ED Course User Index [ELINOR] Arun Tanner PA-C Clinical Impressions as of 03/28/24134 Other chest pain - From cocaine abuse; no signs of heart injury Cocaine abuse (HCC) Medical Decision Making SIGNATURE: Chelsi Sawyer MD PATIENT NAME: Luisito Zhong DATE: March 28, 2024 TIME: 12:32 AM PAGER/CONTACT #: CHELSI SAWYER 03/28/[address] [facility] CBC W Auto Differential pane l (Bld)on 03-27-2024 Basophils (Bld) [#/Vol] 0.14 10*3/uL High <0.11 [facility] Comment on above: Order Comment: Speci men Type: BLOOD SPECIMEN Ordering Facility: [facility] Address: [address] [place] [address] Performed By: #### 5 7021-8 #### [facility] CLIA [id number] [address] [place] [address] [place] Basophils/100 WBC (Bld) 1.3 % Normal [facility] Comment on above: Order Comment: Speci men Type: BLOOD SPECIMEN Ordering Facility: [facility] Address: [address] [place] [address] Performed By: #### 5 7021-8 #### [facility] CLIA [id number] [address] [place] [address] [place] Differential cell count method Nom (Bld) Auto Normal [facility] Comment on above: Order Comment: Speci men Type: BLOOD SPECIMEN Ordering Facility: [facility] Address: [address] [place] [address] Performed By: #### 5 7021-8 #### [facility] CLIA [id number] [address] [place] [address] [place] Eosinophils (Bld) [#/Vol] 10*3/uL Normal <0.46 [facility] Comment on above: Order Comment: Speci men Type: BLOOD SPECIMEN Ordering Facility: [facility] Address: [address] [place] [address] Performed By: #### 5 7021-8 #### [facility] CLIA [id number] [address] [place] [address] [place] Eosinophils/100 WBC (Bld) 0.1 % Normal [facility] Comment on above: Order Comment: Speci men Type: BLOOD SPECIMEN Ordering Facility: [facility] Address: [address] [place] [address] Performed By: #### 5 7021-8 #### [facility] CLIA [id number] [address] [place] [address] [place] Erythrocyte distribution width (RBC) [Ratio] 13.2 % Normal 11.5-15.0 [facility] Comment on above: Order Comment: Speci men Type: BLOOD SPECIMEN Ordering Facility: [facility] Address: [address] [place] [address] Performed By: #### 5 7021-8 #### [facility] CLIA [id number] [address] [place] [address] [place] Hematocrit (Bld) [Volume fraction] 43.6 % Normal 39.0-51.0 [facility] Comment on above: Order Comment: Speci men Type: BLOOD SPECIMEN Ordering Facility: [facility] Address: [address] [place] [address] Performed By: #### 5 7021-8 #### [facility] CLIA [id number] [address] [place] [address] [place] Hemoglobin (Bld) [Mass/Vol] 14.9 g/dL Normal 13.0-17.0 [facility] Comment on above: Order Comment: Speci men Type: BLOOD SPECIMEN Ordering Facility: [facility] Address: [address] [place] [address] Performed By: #### 5 7021-8 #### [facility] CLIA [id number] [address] [place] [address] [place] Immature granulocytes (Bld) [#/Vol] 0.05 10*3/uL Normal <0.10 [facility] Comment on above: Order Comment: Speci men Type: BLOOD SPECIMEN Ordering Facility: [facility] Address: [address] [place] [address] Performed By: #### 5 7021-8 #### [facility] CLIA [id number] [address] [place] [address] [place] Immature granulocytes/100 WBC (Bld) 0.5 % Normal [facility] Comment on above: Order Comment: Speci men Type: BLOOD SPECIMEN Ordering Facility: [facility] Address: [address] [place] [address] Performed By: #### 5 7021-8 #### [facility] CLIA [id number] [address] [place] [address] [place] Lymphocytes (Bld) [#/Vol] 1.92 10*3/uL Normal 1.00-4.00 [facility] Comment on above: Order Comment: Speci men Type: BLOOD SPECIMEN Ordering Facility: [facility] Address: [address] [place] [address] Performed By: #### 5 7021-8 #### [facility] CLIA [id number] [address] [place] [address] [place] Lymphocytes/100 WBC (Bld) 17.5 % Normal [facility] Comment on above: Order Comment: Speci men Type: BLOOD SPECIMEN Ordering Facility: [facility] Address: [address] [place] [address] Performed By: #### 5 7021-8 #### [facility] CLIA [id number] [address] [place] [address] [place] MCH (RBC) [Entitic mass] 32.3 pg Normal 26.0-34.0 [facility] Comment on above: Order Comment: Speci men Type: BLOOD SPECIMEN Ordering Facility: [facility] Address: [address] [place] [address] Performed By: #### 5 7021-8 #### [facility] CLIA [id number] [address] [place] [address] [place] MCHC (RBC) [Mass/Vol] 34.2 g/dL Normal 30.5-36.0 [facility] Comment on above: Order Comment: Speci men Type: BLOOD SPECIMEN Ordering Facility: [facility] Address: [address] [place] [address] Performed By: #### 5 7021-8 #### [facility] CLIA [id number] [address] [place] [address] [place] MCV (RBC) [Entitic vol] 94.4 fL Normal 80.0-100.0 [facility] Comment on above: Order Comment: Speci men Type: BLOOD SPECIMEN Ordering Facility: [facility] Address: [address] [place] [address] Performed By: #### 5 7021-8 #### [facility] CLIA [id number] [address] [place] [address] [place] Monocytes (Bld) [#/Vol] 1.24 10*3/uL High <0.87 [facility] Comment on above: Order Comment: Speci men Type: BLOOD SPECIMEN Ordering Facility: [facility] Address: [address] [place] [address] Performed By: #### 5 7021-8 #### [facility] CLIA [id number] [address] [place] [address] [place] Monocytes/100 WBC (Bld) 11.3 % Normal [facility] Comment on above: Order Comment: Speci men Type: BLOOD SPECIMEN Ordering Facility: [facility] Address: [address] [place] [address] Performed By: #### 5 7021-8 #### [facility] CLIA [id number] [address] [place] [address] [place] Neutrophils (Bld) [#/Vol] 7.60 10*3/uL High 1.45-7.50 [facility] Comment on above: Order Comment: Speci men Type: BLOOD SPECIMEN Ordering Facility: [facility] Address: [address] [place] [address] Performed By: #### 5 7021-8 #### [facility] CLIA [id number] [address] [place] [address] [place] Neutrophils/100 WBC (Bld) 69.3 % Normal [facility] Comment on above: Order Comment: Speci men Type: BLOOD SPECIMEN Ordering Facility: [facility] Address: [address] [place] [address] Performed By: #### 5 7021-8 #### [facility] CLIA [id number] [address] [place] [address] [place] Nucleated RBC (Bld) [#/Vol] 10*3/uL Normal <0.01 [facility] Comment on above: Order Comment: Speci men Type: BLOOD SPECIMEN Ordering Facility: [facility] Address: [address] [place] [address] Performed By: #### 5 7021-8 #### [facility] CLIA [id number] [address] [place] [address] [place] Nucleated RBC/100 WBC (Bld) [Ratio] 0.0 /[address] [facility] Comment on above: Order Comment: Speci men Type: BLOOD SPECIMEN Ordering Facility: [facility] Address: [address] [place] [address] Performed By: #### 5 7021-8 #### [facility] CLIA [id number] [address] [place] [address] [place] Platelet mean volume (Bld) [Entitic vol] 10.2 fL Normal 9.0-12.7 [facility] Comment on above: Order Comment: Speci men Type: BLOOD SPECIMEN Ordering Facility: [facility] Address: [address] [place] [address] Performed By: #### 5 7021-8 #### [facility] CLIA [id number] [address] [place] [address] [place] Platelets (Bld) [#/Vol] 190 10*3/uL Normal 150-400 [facility] Comment on above: Order Comment: Speci men Type: BLOOD SPECIMEN Ordering Facility: [facility] Address: [address] [place] [address] Performed By: #### 5 7021-8 #### [facility] CLIA [id number] [address] [place] [address] [place] RBC (Bld) [#/Vol] 4.62 10*6/uL Normal 4.20-6.00 [facility] Comment on above: Order Comment: Speci men Type: BLOOD SPECIMEN Ordering Facility: [facility] Address: [address] [place] [address] Performed By: #### 5 7021-8 #### [facility] CLIA [id number] [address] [place], [place] [address] [place] WBC (Bld) [#/Vol] 10.96 10*3/uL Normal 3.70-11.00 [facility] Comment on above: Order Comment: Speci men Type: BLOOD SPECIMEN Ordering Facility: [facility] Address: [address] [place] [address] Performed By: #### 5 7021-8 #### [facility] CLIA [id number] [address] [place] [address] [place] [facility] Comprehensive metabolic 2000 panelon 03-27-2024 Albumin [Mass/Vol] 4.4 g/dL Normal 3.2-5.0 [facility] Comment on above: Order Comment: Speci men Type: BLOOD SPECIMEN Ordering Facility: [facility] Address: [address] [place] [address] Performed By: #### H BLANCO, 18009-6, 33262-1 #### [facility] CLIA [id number] [address] [place] [address] [place] [facility] ALP [Catalytic activity/Vol] 92 U/L Normal 45-117 [facility] Comment on above: Order Comment: Speci men Type: BLOOD SPECIMEN Ordering Facility: [facility] Address: [address] [place] [address] Performed By: #### H BLANCO, 65223-2, 40321-7 #### [facility] CLIA [id number] [address] [place], [place] [address] [facility] ALT [Catalytic activity/Vol] 28 U/L Normal 13-61 [facility] Comment on above: Order Comment: Speci men Type: BLOOD SPECIMEN Ordering Facility: [facility] Address: [address] [place] [address] Result Comment: Resu lts may be falsely depressed after the administration of Sulfasalazine and/or Sulfapyridine. Performed By: #### Taylor SIMEON, 52548-9, 21203-6 #### [facility] CLIA [id number] [address] [place], [place] [address] [place] [facility] Anion gap [Moles/Vol] 14 mmol/L Normal 5-16 [facility] Comment on above: Order Comment: Speci men Type: BLOOD SPECIMEN Ordering Facility: [facility] Address: [address] [place] [address] Performed By: #### Taylor SIMEON, , #### [facility] CLIA [id number] [address] [place], [place] [address] [place] AST [Catalytic activity/Vol] 44 U/L High 8-34 [facility] Comment on above: Order Comment: Speci men Type: BLOOD SPECIMEN Ordering Facility: [facility] Address: [address] [place] [address] Result Comment: Resu lts may be falsely depressed after the administration of Sulfasalazine and/or Sulfapyridine. Performed By: #### Taylor SIMEON, , #### [facility] CLIA [id number] [address] [place] [address] [place] Bilirubin [Mass/Vol] 2.0 mg/dL High 0.2-1.0 [facility] Comment on above: Order Comment: Speci men Type: BLOOD SPECIMEN Ordering Facility: [facility] Address: [address] [place] [address] Performed By: #### Taylor SIMEON, , #### [facility] CLIA [id number] [address] [place], [place] [address] [place] Calcium [Mass/Vol] 10.2 mg/dL Normal 8.5-10.5 [facility] Comment on above: Order Comment: Speci men Type: BLOOD SPECIMEN Ordering Facility: [facility] Address: [address] [place], [place] [address] Performed By: #### Taylor SIMEON, , #### [facility] CLIA [id number] [address] [place], [place] [address] [place] Chloride [Moles/Vol] 105 mmol/L Normal 98-107 [facility] Comment on above: Order Comment: Speci men Type: BLOOD SPECIMEN Ordering Facility: [facility] Address: [address] [id number] Performed By: #### Taylor BLANCO, , #### [facility] CLIA [id number] [address] [place] [address] [place] CO2 [Moles/Vol] 22 mmol/L Normal 21-32 [facility] Comment on above: Order Comment: Speci men Type: BLOOD SPECIMEN Ordering Facility: [facility] Address: [address] [place] [address] Performed By: #### Taylor BLANCO, , #### [facility] CLIA [id number] [address] [place] [address] [place] Creatinine [Mass/Vol] 0.88 mg/dL Normal 0.50-1.40 [facility] Comment on above: Order Comment: Speci men Type: BLOOD SPECIMEN Ordering Facility: [facility] Address: [address] [place] [address] Result Comment: Desiree ents receiving either N-Acetylcysteine (NAC) or Metamizole prior to venipuncture, may have falsely depressed results. Performed By: #### Taylor SIMEON, , #### [facility] CLIA [id number] [address] [place] [address] [place] Creatinine and Glomerular filtration rate.predicted panel (S/P/Bld) 109 mL/min/1.73m??? Normal >=60 [facility] Comment on above: Order Comment: Speci men Type: BLOOD SPECIMEN Ordering Facility: [facility] Address: [address] [place] [address] Result Comment: Rosanna mated Glomerular Filtration Rate (eGFR) is calculated using the 2020 CKD-EPI creatinine equation. This equation utilizes serum creatinine, sex, and age as parameters. The creatinine assay has traceable calibration to isotope dilution-mass spectrometry. Refer to KDIGO guidelines for clinical interpretation. In patients with unstable renal function, e.g. those with acute kidney injury, the eGFR may not accurately reflect actual GFR. Performed By: #### Taylor SIMEON, , #### [facility] CLIA [id number] [address] [place] [address] [place] Glucose [Mass/Vol] 246 mg/dL High 70-100 [facility] Comment on above: Order Comment: Moses burton Type: BLOOD SPECIMEN Ordering Facility: [facility] Address: [address] [id number] Result Comment: The [place] [employer] (ADA) provides guidance for cutoff values for fasting glucose and random glucose. The ADA defines fasting as no caloric intake for at least 8 hours. Fasting plasma glucose results between 100 to 125 mg/dL indicate increased risk for diabetes (prediabetes). Fasting plasma glucose results greater than or equal to 126 mg/dL meet the criteria for diagnosis of diabetes. In the absence of unequivocal hyperglycemia, results should be confirmed by repeat testing. In a patient with classic symptoms of hyperglycemia or hyperglycemic crisis, random plasma glucose results greater than or equal to 200 mg/dL meet the criteria for diagnosis of diabetes. Reference: Standards of Medical Care in Diabetes 2016, [place] [employer]. Diabetes Care. 2016.39(Suppl 1). Results may be falsely elevated after the administration of Sulfapyridine. Results may be falsely depressed after the administration of Sulfasalazine. Performed By: #### Taylor SIMEON, , #### [facility] CLIA [id number] [address] [place] [address] [place] Potassium [Moles/Vol] 4.1 mmol/L Normal 3.5-5.1 [facility] Comment on above: Order Comment: Moses burton Type: BLOOD SPECIMEN Ordering Facility: [facility] Address: [address] [place] [address] Performed By: #### Taylor SIMEON, , #### [facility] CLIA [id number] [address] [place] [address] [place] Protein [Mass/Vol] 7.4 g/dL Normal 6.0-8.5 [facility] Comment on above: Order Comment: Moses burton Type: BLOOD SPECIMEN Ordering Facility: [facility] Address: [address] [id number] Performed By: #### Taylor BLANCO, 29185-0, 53671-7 #### [facility] CLIA [id number] [address] [place], [place] [address] [place] Sodium [Moles/Vol] 141 mmol/L Normal 136-145 [facility] Comment on above: Order Comment: Speci men Type: BLOOD SPECIMEN Ordering Facility: [facility] Address: [address] [place] [address] Performed By: #### Taylor BLANCO, 48331-7, 80061-7 #### [facility] CLIA [id number] [address] [place], [place] [address] [place] Urea nitrogen [Mass/Vol] 18 mg/dL Normal 7-26 [facility] Comment on above: Order Comment: Speci men Type: BLOOD SPECIMEN Ordering Facility: [facility] Address: [address] [place] [address] Performed By: #### Taylor BLANCO, 15272-0, 66249-2 #### [facility] CLIA [id number] [address] [place], [place] [address] [place] ECG COMPLETEon 03-27-2024 ECG COMPLETE Ventricular Rate : 1 09 BPM Atrial Rate : 109 BPM P-R Interval : 142 ms QRS Duration : 92 ms Q-T Interval : 354 ms QTC Calculation(Bazett) : 477 ms Calculated P [place] : 79 degrees Calculated R [place] : 93 degrees Calculated T [place] : 52 degrees Sinus tachycardia Biatrial enlargement Rightward axis Prolonged QT Abnormal ECG When compared with ECG of 05-Feb-2022 13:59, Nonspecific T wave abnormality no longer evident in Inferior leads T wave amplitude has increased in Anterior leads QT has lengthened Confirmed by KAREN FIELDS, [facility] ([id number]) on 03/29/2024 12:38:33 AM NAME : LUISITO ZHONG PID : [id number] : 1980 Gender : Male Race : ORD : [id number] Procedure Date : Mar 27 2024 21:27:51 Edit Date : Mar 29 2024 00:38:38 Diagnosis: Sinus tachycardia Biatrial enlargement Rightward axis Prolonged QT Abnormal ECG When compared with ECG of 05-Feb-2022 13:59, Nonspecific T wave abnormality no longer evident in Inferior leads T wave amplitude has increased in Anterior leads QT has lengthened Confirmed by AMARJIT JONES MD ([id number]) on 03/29/2024 12:38:33 AM Test Reason : HCS Location : 0 : ED [id number] Overread By : AMARJIT JONES MD Edited By : AMARJIT JONES MD Referred By : , Acquired by : System,System [facility] ED NOTEon 03-27-2024 ED NOTE HNO ID: [id number] Author: CHACHO CHAPMAN RN Service: ? Author Type: Registered Nurse Type: ED Notes Filed: 03/27/2024 23:45 Note Text: First IV line that had been placed in PIT (20G in the left AC) infiltrated and was removed. 2nd IV placed, but unsure who completed the first and can't document for them. [facility] ED PROV NOTEon 03-27-2024 ED PROV NOTE HNO ID: [id number] Author: ARUN TANNER PA-C Service: ? Author Type: Physician Quotation Checker Type: ED Provider Notes Filed: 03/28/2024 00:04 Note Text: ED Provider Note Patient Name: Luisito Zhong : 1980 SERVICE DATE: 03/27/24 History Patient presents with: Chest Congestion: Patient admits chest pain started after 2 days of cocaine use, pt expresses concern about blood sugar, Hx. DM I HPI Luisito Zhong is a 43 year old male with history of insulin-dependent type 1 diabetes, CABG, subaortic stenosis, previous aortic valve replacement, and drug use disorder who presents to the ED for evaluation of left-sided chest tightness, lightheadedness, and shortness of breath beginning this evening after using cocaine approximately an hour ago. Denies radiation of chest pain. Denies exertional or breathing component. Patient was previously clean for the past 47 days but has relapsed over the past 48 days. States he has been using cocaine consistently. Has not been using his insulin over the past 48 hours. Ma denies headache, visual changes, numbness or tingling the extremities, abdominal pain, nausea, vomiting, fever, chills, URI symptoms, or other symptoms at this time. Denies history of clots, recent trauma/surgery, or prolonged immobilization. Nursing/triage notes, assessments, and vitals were reviewed. See MDM/ED course for further HPI. ROS Review of Systems Negative unless otherwise stated in HPI or MDM PAST MEDICAL HISTORY Diagnosis Date Acquired hypothyroidism Alcohol abuse sober since 2013 Anxiety and depression 04/04/2019 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 Has been clean since 06/21/2018. Went to treatment at [facility] for 9 months Mitral regurgitation Murmur Rotator cuff syndrome 06/18/2015 Subaortic membrane with stenosis Tetrahydrocannabinol (THC) use disorder, mild, in sustained remission, in controlled environment, abuse Type 1 diabetes mellitus with diabetic polyneuropathy (HCC) PAST SURGICAL HISTORY Procedure Laterality Date HIP SURGERY HX Right PAST SURGICAL HISTORY OF Left shoulder scope PAST SURGICAL HISTORY OF 12/2018 aortic valve surgery to help open up REVISE MEDIAN N/CARPAL TUNNEL SURG Bilateral RT ELBOW CUBITAL TUNNEL ONLY Right SHOULDER SURGERY HX Right x4 FAMILY HISTORY Problem Relation Age of Onset No Known Problems Mother No Known Problems Father No Known Problems Sister No Known Problems Sister Cancer Maternal Grandmother Heart Attack Paternal Grandfather Social History Tobacco Use Smoking status: Every Day Current packs/day: 0.00 Average packs/day: 0.5 packs/day for 25.0 years (12.5 ttl pk-yrs) Types: Cigarettes Start date: 11/1996 Last attempt to quit: 11/2021 Years since quittin.3 Smokeless tobacco: Never Tobacco comments: nicotine lozenges daily Vaping Use Vaping status: Former Substances: Nicotine, Flavoring Devices: Disposable Substance and Sexual Activity Alcohol use: Not Currently Drug use: Yes Types: Crack Cocaine Comment: used last last night. Sexual activity: Not on file ALLERGIES Allergen Reactions Hydromorphone Itching Tramadol Other: See Comments Burning skin Physical Exam Physical Exam Vitals [03/27/242125] BP Pulse Temp Temp src Resp SpO2 Weight Height 125/56 (!) 110 36.7 ?C (98 ?F) Oral 20 98 % 99.8 kg (220 lb) -- General: alert, generally well-appearing HEENT: atraumatic, EOMI, no scleral injection or tearing, mucous membranes moist Neck: supple without lymphadenopathy, no stiffness or restricted ROM, trachea midline Lungs: CTAB without wheezing, rhonchi, rales, good respiratory effort Cardiac: RRR, Abdomen: soft, nontender, nondistended, (+) bowel sounds, no rebound or peritoneal signs : not performed/indicated Rectal: not performed/indicated Back: no midline or CVA tenderness Extremities: atraumatic, without cyanosis or edema Skin: warm, dry, no rashes or lesions, bilateral equal 2+ distal pulses in the upper extremity, less than 2-second cap refill, bilateral equal sensation Neuro: alert, oriented, no lateralized or focal deficits, moving all 4 extremities, no gross weakness, CN grossly intact Psych: normal mood and affect Diagnostic Testing ED Labs Ordered and Reviewed COMPLETE BLOOD COUNT AND DIFFERENTIAL - Abnormal; Notable for the following components: Result Value Ref Range Abs Neut 7.60 (*) 1.45 - 7.50 k/uL Abs Kerr 1.24 (*) <0.87 k/uL Abs Baso 0.14 (*) <0.11 k/uL All other components within normal limits COMPREHENSIVE METABOLIC PANEL - Abnormal; Notable for the following components: Bilirubin, Total 2.0 (*) 0.2 - 1.0 mg/dL AST 44 (*) 8 - 34 U/L Glucose 246 (*) 70 - 100 mg/dL All oth (more content not included)... Normal [facility] ED Triage Noteon 03-27-2024 ED Triage Note HNO ID: [id number] Author: KRISTAL FERGUSON PA-C Service: ? Author Type: Physician Quotation Checker Type: ED Triage Notes Filed: 03/27/2024 21:30 Note Text: ED TRIAGE PROVIDER NOTE Patient Name: Luisito Zhong Service Date: 03/27/24 BRIEF HPI: This is a 43 year old male who presents to the ED with: Chest pain since this evening. Does not radiate. Patient relapsed on cocaine, last use was 30 minutes ago. Denies history of IV drug use. He does have some associated shortness of breath. Reports significant cardiac history of CABG, subaortic stenosis. He is also concerned about his blood sugar, as he has not been able to check it today. Has a history of insulin-dependent type 1 diabetes. BRIEF EXAM: NAD Awake and Alert Non labored breathing Tachycardic rate, (+) murmur Lungs are clear bilaterally INITIAL WORKUP AND DECISION MAKING: Orders Placed This Encounter CXR PA/LAT CBC W/ DIFF CMP MAG LEVEL TROPONIN FINGERSTICK GLUCOSE URINE DRUG EKG SIGNATURE: Kristal Ferguson PA-C Normal [facility] HIGH SENSITIVITY TROPONIN Io n 03-27-2024 Tropinin I.cardiac panel High sensitivity method 18.7 pg/mL Normal 0.0-54.0 [facility] Comment on above: Order Comment: Speci men Type: BLOOD SPECIMEN Ordering Facility: [facility] Address: [address] [place] [address] Performed By: #### Taylor SIMEON #### [facility] CLIA [id number] [address] [place] [address] [place] [facility] Tropinin I.cardiac panel High sensitivity method 19.1 pg/mL Normal 0.0-54.0 [facility] Comment on above: Order Comment: Speci men Type: BLOOD SPECIMEN Ordering Facility: [facility] Address: [address] [place] [address] Performed By: #### Taylor SIMEON, 84114-4, 46403-9 #### [facility] CLIA [id number] [address] [place] [address] [place] Magnesium SerPl-mCncon 03-27 Magnesium [Mass/Vol] 1.6 mg/dL Normal 1.6-2.6 [facility] Comment on above: Order Comment: Speci men Type: BLOOD SPECIMEN Ordering Facility: [facility] Address: [address] [place], [place] [address] Performed By: #### Taylor SIMEON, 15970-8, 13646-4 #### [facility] CLIA [id number] [address] [place], [place] [address] [place] XR CHEST 2V FRONTAL/LATon XR CHEST 2V FRONTAL/LAT * * *Final Report* * * DATE OF EXAM: Mar 27 2024 9:40PM RHX [id number] - XR CHEST 2V FRONTAL/LAT / PROCEDURE REASON: Chest pain, nonspecific * * * * Physician Interpretation * * * * EXAMINATION: CHEST RADIOGRAPH (2 VIEW FRONTAL and LATERAL) CLINICAL HISTORY: Chest pain, nonspecific, Chest Pain MQ: [id number] EXAM DATE/TIME: 03/27/2024 9:40 PM COMPARISON: Chest x-ray 02/07/2024 RESULT: Lines, tubes, and devices: Stable median sternotomy wires. Lungs and pleura: No consolidation. No pleural effusion. No pneumothorax. Cardiomediastinal silhouette: Stable cardiomediastinal silhouette. Bones and soft tissues: Unremarkable. IMPRESSION: No acute radiographic abnormality. 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 Basic metabolic 2000 panelon 02-10-2024 Anion gap [Moles/Vol] 3 mmol/L Low 5-16 [facility] Comment on above: Order Comment: Speci men Type: BLOOD SPECIMENOrdering Facility: [facility] Address: [address] [place] [address] Performed By: #### 2 4321-2 ####[facility] [id number] [place] [address] [place] Calcium [Mass/Vol] 8.4 mg/dL Low 8.5-10.5 [facility] Comment on above: Order Comment: Speci men Type: BLOOD SPECIMENOrdering Facility: [facility] Address: [address] [id number] Performed By: #### 2 4321-2 ####[facility] [id number] [place] [address] [place] Chloride [Moles/Vol] 106 mmol/L Normal 98-107 [facility] Comment on above: Order Comment: Delfinai men Type: BLOOD SPECIMENOrdering Facility: [facility] [facility] Address: [address] [place] [address] Performed By: #### 2 4321-2 ####[facility] LABORATORYCLIA [id number] [place] [address] [place] CO2 [Moles/Vol] 32 mmol/L Normal 21-32 [facility] Comment on above: Order Comment: Speci men Type: BLOOD SPECIMENOrdering Facility: [facility] Address: [address] [place] [address] Performed By: #### 2 4321-2 ####[facility] LABORATORYCLIA [id number] [place] [address] [place] Creatinine [Mass/Vol] 0.56 mg/dL Normal 0.50-1.40 [facility] Comment on above: Order Comment: Speci men Type: BLOOD SPECIMENOrdering Facility: [facility] Address: [address] [place] [address] Result Comment: Desiree ents receiving either N-Acetylcysteine (NAC) or Metamizole prior to venipuncture, may have falsely depressed results. Performed By: #### 2 4321-2 ####[facility] LABORATORYCLIA [id number] [place] [address] [place] Creatinine and Glomerular filtration rate.predicted panel (S/P/Bld) 125 mL/min/1.73m??? Normal >=60 [facility] Comment on above: Order Comment: Speci men Type: BLOOD SPECIMENOrdering Facility: [facility] Address: [address] [place] [address] Result Comment: Rosanna mated Glomerular Filtration Rate (eGFR) is calculated using the 2020 CKD-EPI creatinine equation. This equation utilizes serum creatinine, sex, and age as parameters. The creatinine assay has traceable calibration to isotope dilution-mass spectrometry. Refer to KDIGO guidelines for clinical interpretation. In patients with unstable renal function, e.g. those with acute kidney injury, the eGFR may not accurately reflect actual GFR. Performed By: #### 2 4321-2 ####[facility] LABORATORYCLIA [id number] [place] [id number] [place] Glucose [Mass/Vol] 233 mg/dL High 70-100 [facility] Comment on above: Order Comment: Moses burton Type: BLOOD SPECIMENOrdering Facility: [facility] Address: [address] [place] [address] Result Comment: The [place] [employer] (ADA) provides guidance for cutoff values for fasting glucose and random glucose. The ADA defines fasting as no caloric intake for at least 8 hours. Fasting plasma glucose results between 100 to 125 mg/dL indicate increased risk for diabetes (prediabetes). Fasting plasma glucose results greater than or equal to 126 mg/dL meet the criteria for diagnosis of diabetes. In the absence of unequivocal hyperglycemia, results should be confirmed by repeat testing. In a patient with classic symptoms of hyperglycemia or hyperglycemic crisis, random plasma glucose results greater than or equal to 200 mg/dL meet the criteria for diagnosis of diabetes. Reference: Standards of Medical Care in Diabetes 2016, [place] [employer]. Diabetes Care. 2016.39(Suppl 1). Results may be falsely elevated after the administration of Sulfapyridine. Results may be falsely depressed after the administration of Sulfasalazine. Performed By: #### 2 4321-2 ####[facility] LABORATORYCLIA [id number] [place] [address] [place] Potassium [Moles/Vol] 3.3 mmol/L Low 3.5-5.1 [facility] Comment on above: Order Comment: Moses burton Type: BLOOD SPECIMENOrdering Facility: [facility] Address: [address] [place] [address] Performed By: #### 2 4321-2 ####[facility] LABORATORYCLIA [id number] [place] [address] [place] Sodium [Moles/Vol] 141 mmol/L Normal 136-145 [facility] Comment on above: Order Comment: Moses burton Type: BLOOD SPECIMENOrdering Facility: [facility] Address: [address] [place] [address] Performed By: #### 2 4321-2 ####[facility] LABORATORYCLIA [id number] [place] [address] [place] Urea nitrogen [Mass/Vol] 11 mg/dL Normal 7-26 [facility] Comment on above: Order Comment: Speci men Type: BLOOD SPECIMENOrdering Facility: [facility] Address: [address] [place] [address] Performed By: #### 2 4321-2 ####[facility] LABORATORYCLIA [id number] [place] [address] [facility] CNDSon 02-10-2024 CNDS HNO ID: [id number] Author: LUZ MARIA DECKER DO Service: Hospital Medicine Author Type: Physician Type: Discharge Summary Filed: 02/10/2024 14:34 Note Text: DISCHARGE SUMMARY PATIENT NAME: Luisito Zhong ADMISSION DATE: 02/06/2024 DISCHARGE DATE: 02/10/2024 ATTENDING PHYSICIAN: Luz Maria Decker DO Code Status: Full Code CONSULTING TEAMS DURING HOSPITALIZATION: None REASON FOR HOSPITALIZATION: Diabetic ketoacidosis, severe sepsis, acute hypoxic respiratory failure, aspiration pneumonia DIAGNOSIS: Diabetic ketoacidosis Severe sepsis Acute hypoxic respiratory failure Aspiration pneumonia Lactic acidosis Insulin-dependent diabetes mellitus Hypothyroidism OPERATIONS/PROCEDURES DURING HOSPITALIZATION: None HOSPITAL COURSE: Patient is a 43-year-old male who initially was brought to the emergency department on 02/05 for further evaluation of shortness of breath. Upon arrival he was found to be markedly tachypneic. He was also tachycardic. Stat VBG revealed evidence of a marked metabolic acidosis with pH of 7.13 and bicarb of 6.3. Blood glucose was greater than 500. Anion gap was 27 on chemistry panel. Serum ketones were present. Patient was intubated and admitted to the ICU for further evaluation and management of diabetic ketoacidosis. Aggressive IV fluid resuscitation was started. Insulin drip was added. Due to concerns for severe sepsis thought to be from aspiration pneumonia antibiotics were added. In the days that followed the patient's clinical condition did improve. Blood glucose improved. Anion gap closed. Acidosis resolved. Insulin drip was shut off. Patient was extubated. He was transferred to the floors on 02/08. When I took over care on 02/09 the patient was believed to be in stable and satisfactory condition. He wished to be discharged home. Discharge orders were placed. Patient typically manages his diabetes with an insulin pump at home. He was confident that he could handle this. Subcutaneous insulin, which was given here during the hospital, was not continued on discharge. PHYSICAL EXAM: BP 106/59 Pulse 57 Temp (Src) 97.7 (Oral) Resp 18 Ht 5' 11 (1.80m) Wt 225 lb 1.4 oz (102.1kg) SpO2 94% BMI 31.41 kg/(m2). O2 Therapy: Room Air General: alert and oriented x3, resting comfortably Neck: supple, no hepatojugular reflux or jugular venous distention, no carotid bruits Lungs: clear to auscultation bilaterally, no wheezing, rales, or rhonchi Cardiac: regular rate and rhythm, normal S1 and S2, no murmurs, gallops, or rubs Abdomen: soft, nontender, nondistended, bowel sounds present Extremities: no edema, cyanosis, or clubbing Skin: no rashes or breakdown Lymphatic: no cervical or supraclavicular lymphadenopathy Neurologic: cranial nerves II-XII are grossly intact Psychiatry: normal affect, no hallucinations, no suicidal ideation DISCHARGE MEDICATION: Medication List START taking these medications lactulose 20 gram/30 mL solution Take 30 mL by mouth three times a day. levothyroxine 175 mcg tablet Commonly known as: SYNTHROID Take 1 tablet by mouth daily at 6 am. Start taking on: February 11, 2024 Where to Get Your Medications These medications were sent to [facility] [address] [place] [address] Hours: Tuesday-Tuesday 7am-7pm, Tuesday 9am-1pm lactulose 20 gram/30 mL solution levothyroxine 175 mcg tablet FUTURE APPOINTMENTS: No future appointments. PATIENT CONDITION AT DISCHARGE: Stable DISCHARGE DISPOSITION: Home DISCHARGE TIME: 33 minutes SIGNATURE: Luz Maria Decker DO DATE: February 10, 2024 TIME: 2:[address] [facility] NUTRITIONon 02-10-2024 NUTRITION HNO ID: [id number] Author: EMMETT THOMPSON RD Service: ? Author Type: Registered Dietitian Type: Nutrition Filed: 02/10/2024 12:24 Note Text: NUTRITION THERAPY REASSESSMENT NOTE SERVICE DATE: 02/10/2024 SERVICE TIME: 10:00AM Nutrition Assessment: Recommended Malnutrition Diagnosis: No Malnutrition Identified (02/10/24 1214 : Emmett Thompson RD) Nutrition Diagnosis: PES Statement: No diagnosis at this time Care Plan: Continue current diet Supplements: Boost Glucose Control (BID) Monitor and Evaluation: Monitor labs, I/Os, vital signs, weight;Meet greater than 75% of estimated needs;Monitor fluid/electrolyte balance;Monitor bowel function Discharge Recommendations: Diet Diet: Carb Controlled diet Interval History: Patient admitted for DKA. Was extubated on 02/07, continued on carb controlled diet with BGC BID. PMH: T1DM Intake History: Nutrition Intake Prior to Admission: Greater than 75% estimated energy needs (reports good appetite, 3 meals/day) greater than or equal to 1 month Current Nutrition Intake: Greater than 75% estimated energy needs (reports good PO, eating all his meals including BGC BID) Current Intake Over time: (x 3 day LOS) Dosing Weight: 88.9 kg (196 lb) Dosing Weight Type: Admit weight Estimated kilocalorie needs: 7292-8842 Calorie Calculation Method: Sullivan-StProgrammr (with activity factor) (1.1-1.3) Estimated protein needs (grams): 105-135 Grams protein determined by: 1.2 - 1.5 g/kg Diet Orders (From admission, onward) Start Ordered 02/08/24 1500 DIET SUPPLEMENTS START NOW Question Answer Comment Supplement 1 BOOST GLUCOSE CONTROL CHOCOLATE Supplement 1 Frequency BREAKFAST Supplement 1 Frequency DINNER 02/08/24 1456 02/08/24 1445 DIET CARBOHYDRATE CONTROLLED START NOW Question: Carbohydrate Control Answer: CONSISTENT CARBOHYDRATE 02/08/24 1432 Anthropometrics: Height: 180.3 cm (5' 11) Weight: 102.1 kg (225 lb 1.4 oz) Usual Weight: 83.5 kg (184 lb) 11/24/2023 Usual Weight Obtained From: Care Everywhere Body mass index is 31.39 kg/m?. Weight change percentage over time: 22.2% wt gain x 2mo- +9.17L fluid balance noted Weight Change: Weight gain Physical Exam: Subcutaneous fat loss: No fat loss (02/10/24 1214 : Emmett Thompson RD) Muscle loss: No muscle loss (02/10/24 1214 : Emmett Thompson RD) Potential micronutrient deficiency: No deficiency identified Edema/Ascites: No ascites;Lower extremities;Upper extremities;Generalized (nonpitting generalized.. +9.1 L fluid balance) Upper Extremity: Non-pitting Lower Extremity: Mild 1+ GI Symptoms: None Functional Status: No Change Potential Signs of Inflammation: Chronic condition, Microbiologic cultures, Imaging studies T1DM MNT Billing: $ Reassessment: 16-30 minutes SIGNATURE: Emmett Thompson RD PATIENT NAME: Luisito Zhong DATE: February 10, 2024 TIME: 10:[address] [facility] Basic metabolic 2000 panelon 02-09-2024 Anion gap [Moles/Vol] 8 mmol/L Normal 5-16 [facility] Comment on above: Order Comment: Speci men Type: BLOOD SPECIMEN [facility] Address: [address] [place] [address] Performed By: #### Yvonne HB, , #### [facility] CLIA [id number] [address] [place] [address] [place] Calcium [Mass/Vol] 8.4 mg/dL Low 8.5-10.5 [facility] Comment on above: Order Comment: Speci men Type: BLOOD SPECIMEN [facility]: [facility] Address: [address] [place] [address] Performed By: #### B HB, , #### [facility] CLIA [id number] [address] [place], [place] [address] [place] Chloride [Moles/Vol] 106 mmol/L Normal 98-107 [facility] Comment on above: Order Comment: Speci men Type: BLOOD SPECIMEN [facility]: [facility] Address: [address] [place] [address] Performed By: #### B HB, , #### [facility] CLIA [id number] [address] [place], [place] [address] [place] CO2 [Moles/Vol] 26 mmol/L Normal 21-32 [facility] Comment on above: Order Comment: Speci men Type: BLOOD SPECIMEN [facility] Address: [address] [place] [address] Performed By: #### B HB, , #### [facility] CLIA [id number] [address] [place] [address] [place] Creatinine [Mass/Vol] 0.63 mg/dL Normal 0.50-1.40 [facility] Comment on above: Order Comment: Moses burton Type: BLOOD SPECIMEN [facility] Address: [address] [place] [address] Result Comment: Desiree ents receiving either N-Acetylcysteine (NAC) or Metamizole prior to venipuncture, may have falsely depressed results. Performed By: #### B HB, , #### [facility] CLIA [id number] [address] [place] [address] [facility] [place] Creatinine and Glomerular filtration rate.predicted panel (S/P/Bld) 120 mL/min/1.73m??? Normal >=60 [facility] Comment on above: Order Comment: Moses burton Type: BLOOD SPECIMEN [facility] Address: [address] [place] [address] Result Comment: Rosanna mated Glomerular Filtration Rate (eGFR) is calculated using the 2020 CKD-EPI creatinine equation. This equation utilizes serum creatinine, sex, and age as parameters. The creatinine assay has traceable calibration to isotope dilution-mass spectrometry. Refer to KDIGO guidelines for clinical interpretation. In patients with unstable renal function, e.g. those with acute kidney injury, the eGFR may not accurately reflect actual GFR. Performed By: #### B HB, , #### [facility] CLIA [id number] [address] [place] [address] [place] Glucose [Mass/Vol] 292 mg/dL High 70-100 [facility] Comment on above: Order Comment: Moses burton Type: BLOOD SPECIMEN [facility]: [facility] Address: [address] [place] [address] Result Comment: The [place] Diabetes Association (ADA) provides guidance for cutoff values for fasting glucose and random glucose. The ADA defines fasting as no caloric intake for at least 8 hours. Fasting plasma glucose results between 100 to 125 mg/dL indicate increased risk for diabetes (prediabetes). Fasting plasma glucose results greater than or equal to 126 mg/dL meet the criteria for diagnosis of diabetes. In the absence of unequivocal hyperglycemia, results should be confirmed by repeat testing. In a patient with classic symptoms of hyperglycemia or hyperglycemic crisis, random plasma glucose results greater than or equal to 200 mg/dL meet the criteria for diagnosis of diabetes. Reference: Standards of Medical Care in Diabetes 2016, [place] [employer]. Diabetes Care. 2016.39(Suppl 1). Results may be falsely elevated after the administration of Sulfapyridine. Results may be falsely depressed after the administration of Sulfasalazine. Performed By: #### B HB, , #### [facility] CLIA [id number] [address] [place] [address] [place] Potassium [Moles/Vol] 3.4 mmol/L Low 3.5-5.1 [facility] Comment on above: Order Comment: Moses burton Type: BLOOD SPECIMEN [facility] Address: [address] [place] [address] Performed By: #### B HB, , #### [facility] CLIA [id number] [address] [place] [address] [place] Sodium [Moles/Vol] 140 mmol/L Normal 136-145 [facility] Comment on above: Order Comment: Moses burton Type: BLOOD SPECIMEN [facility] Address: [address] [place] [address] Performed By: #### B HB, , #### [facility] CLIA [id number] [address] [place] [address] [place] Urea nitrogen [Mass/Vol] 10 mg/dL Normal 7-26 [facility] Comment on above: Order Comment: Moses burton Type: BLOOD SPECIMEN [facility] Facility: [facility] Address: [address] [place] [address] Performed By: #### B HB, , 74206-5 #### [facility] CLIA [id number] [address] [place], [place] [address] [place] Anion gap [Moles/Vol] 7 mmol/L Normal 5-16 [facility] Comment on above: Order Comment: Speci men Type: BLOOD SPECIMEN [facility]: [facility] Address: [address] [place] [address] Performed By: #### B HB, , #### [facility] CLIA [id number] [address] [place] [address] [place] Calcium [Mass/Vol] 8.3 mg/dL Low 8.5-10.5 [facility] Comment on above: Order Comment: Speci men Type: BLOOD SPECIMEN [facility]: [facility] Address: [address] [place] [address] Performed By: #### B HB, , #### [facility] CLIA [id number] [address] [place] [address] [place] Chloride [Moles/Vol] 106 mmol/L Normal 98-107 [facility] Comment on above: Order Comment: Speci men Type: BLOOD SPECIMEN [facility]: [facility] Address: [address] [place] [address] Performed By: #### B HB, , #### [facility] CLIA [id number] [address] [place], [place] [address] [place] CO2 [Moles/Vol] 28 mmol/L Normal 21-32 [facility] Comment on above: Order Comment: Speci men Type: BLOOD SPECIMEN [facility] Address: [address] [place] [address] Performed By: #### B HB, , #### [facility] CLIA [id number] [address] [place], [place] [address] [place] Creatinine [Mass/Vol] 0.65 mg/dL Normal 0.50-1.40 [facility] Comment on above: Order Comment: Speci men Type: BLOOD SPECIMEN [facility] Facility: [facility] Address: [address] [place] [id number] Result Comment: Desiree ents receiving either N-Acetylcysteine (NAC) or Metamizole prior to venipuncture, may have falsely depressed results. Performed By: #### B HB, , #### [facility] CLIA [id number] [address] [place] [address] [place] Creatinine and Glomerular filtration rate.predicted panel (S/P/Bld) 119 mL/min/1.73m??? Normal >=60 [facility] Comment on above: Order Comment: Moses burton Type: BLOOD SPECIMEN [facility]: [facility] Address: [address] [place] [address] Result Comment: Rosanna mated Glomerular Filtration Rate (eGFR) is calculated using the 2020 CKD-EPI creatinine equation. This equation utilizes serum creatinine, sex, and age as parameters. The creatinine assay has traceable calibration to isotope dilution-mass spectrometry. Refer to KDIGO guidelines for clinical interpretation. In patients with unstable renal function, e.g. those with acute kidney injury, the eGFR may not accurately reflect actual GFR. Performed By: #### B HB, , #### [facility] CLIA [id number] [address] [place] [address] [place] Glucose [Mass/Vol] 324 mg/dL High 70-100 [facility] Comment on above: Order Comment: Moses ubrton Type: BLOOD SPECIMEN [facility] Facility: [facility] Address: [address] [place] [id number] Result Comment: The [place] Diabetes Association (ADA) provides guidance for cutoff values for fasting glucose and random glucose. The ADA defines fasting as no caloric intake for at least 8 hours. Fasting plasma glucose results between 100 to 125 mg/dL indicate increased risk for diabetes (prediabetes). Fasting plasma glucose results greater than or equal to 126 mg/dL meet the criteria for diagnosis of diabetes. In the absence of unequivocal hyperglycemia, results should be confirmed by repeat testing. In a patient with classic symptoms of hyperglycemia or hyperglycemic crisis, random plasma glucose results greater than or equal to 200 mg/dL meet the criteria for diagnosis of diabetes. Reference: Standards of Medical Care in Diabetes 2016, [place] [employer]. Diabetes Care. 2016.39(Suppl 1). Results may be falsely elevated after the administration of Sulfapyridine. Results may be falsely depressed after the administration of Sulfasalazine. Performed By: #### B HB, , #### [facility] CLIA [id number] [address] [place] [address] [place] Potassium [Moles/Vol] 3.8 mmol/L Normal 3.5-5.1 [facility] Comment on above: Order Comment: Speci men Type: BLOOD SPECIMEN [facility] Facility: [facility] Address: [address] [place] [address] Performed By: #### B HB, , #### [facility] CLIA [id number] [address] [place] [address] [place] Sodium [Moles/Vol] 141 mmol/L Normal 136-145 [facility] Comment on above: Order Comment: Speci men Type: BLOOD SPECIMEN [facility] Facility: [facility] Address: [address] [place] [address] Performed By: #### B HB, , #### [facility] CLIA [id number] [address] [place] [address] [place] Urea nitrogen [Mass/Vol] 10 mg/dL Normal 7-26 [facility] Comment on above: Order Comment: Speci men Type: BLOOD SPECIMEN [facility] Facility: [facility] Address: [address] [place] [address] Performed By: #### B HB, , #### [facility] CLIA [id number] [address] [place] [address] [place] Anion gap [Moles/Vol] 6 mmol/L Normal 5-16 [facility] Comment on above: Order Comment: Delfinai men Type: BLOOD SPECIMEN [facility] Facility: [facility] Address: [address] [place] [address] Performed By: #### B HB, , #### [facility] CLIA [id number] [address] [place] [address] [place] Calcium [Mass/Vol] 8.1 mg/dL Low 8.5-10.5 [facility] Comment on above: Order Comment: Speci men Type: BLOOD SPECIMEN [facility] Facility: [facility] Address: [address] [place] [address] Performed By: #### B HB, , #### [facility] CLIA [id number] [address] [place] [address] [place] Chloride [Moles/Vol] 105 mmol/L Normal 98-107 [facility] Comment on above: Order Comment: Speci men Type: BLOOD SPECIMEN [facility] Facility: [facility] Address: [address] [place] [address] Performed By: #### B HB, , #### [facility] CLIA [id number] [address] [place] [address] [place] CO2 [Moles/Vol] 30 mmol/L Normal 21-32 [facility] Comment on above: Order Comment: Speci men Type: BLOOD SPECIMEN [facility] Facility: [facility] Address: [address] [place] [address] Performed By: #### B HB, , #### [facility] CLIA [id number] [address] [place] [address] [place] Creatinine [Mass/Vol] 0.66 mg/dL Normal 0.50-1.40 [facility] Comment on above: Order Comment: Speci men Type: BLOOD SPECIMEN [facility]ing Facility: [facility] Address: [address] [place] [address] Result Comment: Desiree ents receiving either N-Acetylcysteine (NAC) or Metamizole prior to venipuncture, may have falsely depressed results. Performed By: #### B HB, , #### [facility] CLIA [id number] [address] [place] [address] [place] Creatinine and Glomerular filtration rate.predicted panel (S/P/Bld) 119 mL/min/1.73m??? Normal >=60 [facility] Comment on above: Order Comment: Moses burton Type: BLOOD SPECIMEN [facility]ing Facility: [facility] Address: [address] [place] [address] Result Comment: Rosanna mated Glomerular Filtration Rate (eGFR) is calculated using the 2020 CKD-EPI creatinine equation. This equation utilizes serum creatinine, sex, and age as parameters. The creatinine assay has traceable calibration to isotope dilution-mass spectrometry. Refer to KDIGO guidelines for clinical interpretation. In patients with unstable renal function, e.g. those with acute kidney injury, the eGFR may not accurately reflect actual GFR. Performed By: #### B HB, , #### [facility] CLIA [id number] [address] [place] [address] [place] Glucose [Mass/Vol] 263 mg/dL High 70-100 [facility] Comment on above: Order Comment: Moses burton Type: BLOOD SPECIMEN Ordering Facility: [facility] Address: [address] [place] [address] Result Comment: The [place] [employer] (ADA) provides guidance for cutoff values for fasting glucose and random glucose. The ADA defines fasting as no caloric intake for at least 8 hours. Fasting plasma glucose results between 100 to 125 mg/dL indicate increased risk for diabetes (prediabetes). Fasting plasma glucose results greater than or equal to 126 mg/dL meet the criteria for diagnosis of diabetes. In the absence of unequivocal hyperglycemia, results should be confirmed by repeat testing. In a patient with classic symptoms of hyperglycemia or hyperglycemic crisis, random plasma glucose results greater than or equal to 200 mg/dL meet the criteria for diagnosis of diabetes. Reference: Standards of Medical Care in Diabetes 2016, [place] [employer]. Diabetes Care. 2016.39(Suppl 1). Results may be falsely elevated after the administration of Sulfapyridine. Results may be falsely depressed after the administration of Sulfasalazine. Performed By: #### B HB, , #### [facility] CLIA [id number] [address] [place] [address] [place] [address] [place] Potassium [Moles/Vol] 3.4 mmol/L Low 3.5-5.1 [facility] Comment on above: Order Comment: Speci men Type: BLOOD SPECIMEN Ordering Facility: [facility] Address: [address] [place] [address] Performed By: #### B HB, , 41124-3 #### [facility] CLIA [id number] [address] [place], [place] [address] [place] Sodium [Moles/Vol] 141 mmol/L Normal 136-145 [facility] Comment on above: Order Comment: Speci men Type: BLOOD SPECIMEN Ordering Facility: [facility] Address: [address] [place] [address] Performed By: #### B HB, , #### [facility] CLIA [id number] [address] [place] [address] [place] Urea nitrogen [Mass/Vol] 10 mg/dL Normal 7-26 [facility] Comment on above: Order Comment: Speci men Type: BLOOD SPECIMEN Ordering Facility: [facility] Address: [address] [place] [address] Performed By: #### B HB, , 51205-4 #### [facility] CLIA [id number] [address] [place], [place] [address] [place] Basic metabolic 2000 panelon 02-08-2024 Anion gap [Moles/Vol] 6 mmol/L Normal 5-16 [facility] Comment on above: Order Comment: Speci men Type: BLOOD SPECIMEN Ordering Facility: [facility] Address: [address] [place] [address] Performed By: #### B HB, , #### [facility] CLIA [id number] [address] [place], [place] [address] [place] Calcium [Mass/Vol] 8.5 mg/dL Normal 8.5-10.5 [facility] Comment on above: Order Comment: Speci men Type: BLOOD SPECIMEN Ordering Facility: [facility] Address: [address] [place] [address] Performed By: #### B HB, , #### [facility] CLIA [id number] [address] [place] [address] [place] Chloride [Moles/Vol] 107 mmol/L Normal 98-107 [facility] Comment on above: Order Comment: Speci men Type: BLOOD SPECIMEN Ordering Facility: [facility] Address: [address] [place] [address] Performed By: #### B HB, , #### [facility] CLIA [id number] [address] [place] [address] [place] CO2 [Moles/Vol] 30 mmol/L Normal 21-32 [facility] Comment on above: Order Comment: Speci men Type: BLOOD SPECIMEN Ordering Facility: [facility] Address: [address] [place] [address] Performed By: #### B HB, , #### [facility] CLIA [id number] [address] [place] [address] [place] Creatinine [Mass/Vol] 0.73 mg/dL Normal 0.50-1.40 [facility] Comment on above: Order Comment: Speci men Type: BLOOD SPECIMEN Ordering Facility: [facility] Address: [address] [place] [address] Result Comment: Desiree ents receiving either N-Acetylcysteine (NAC) or Metamizole prior to venipuncture, may have falsely depressed results. Performed By: #### B HB, , #### [facility] CLIA [id number] [address] [place] [address] [place] Creatinine and Glomerular filtration rate.predicted panel (S/P/Bld) 115 mL/min/1.73m??? Normal >=60 [facility] Comment on above: Order Comment: Speci men Type: BLOOD SPECIMEN Ordering Facility: [facility] Address: [address] [place] [address] Result Comment: Rosanna mated Glomerular Filtration Rate (eGFR) is calculated using the 2020 CKD-EPI creatinine equation. This equation utilizes serum creatinine, sex, and age as parameters. The creatinine assay has traceable calibration to isotope dilution-mass spectrometry. Refer to KDIGO guidelines for clinical interpretation. In patients with unstable renal function, e.g. those with acute kidney injury, the eGFR may not accurately reflect actual GFR. Performed By: #### B HB, , #### [facility] CLIA [id number] [address] [place] [address] [place] Glucose [Mass/Vol] 172 mg/dL High 70-100 [facility] Comment on above: Order Comment: Moses burton Type: BLOOD SPECIMEN Ordering Facility: [facility] Address: [address] [place] [address] Result Comment: The [place] Diabetes Association (ADA) provides guidance for cutoff values for fasting glucose and random glucose. The ADA defines fasting as no caloric intake for at least 8 hours. Fasting plasma glucose results between 100 to 125 mg/dL indicate increased risk for diabetes (prediabetes). Fasting plasma glucose results greater than or equal to 126 mg/dL meet the criteria for diagnosis of diabetes. In the absence of unequivocal hyperglycemia, results should be confirmed by repeat testing. In a patient with classic symptoms of hyperglycemia or hyperglycemic crisis, random plasma glucose results greater than or equal to 200 mg/dL meet the criteria for diagnosis of diabetes. Reference: Standards of Medical Care in Diabetes 2016, [place] [employer]. Diabetes Care. 2016.39(Suppl 1). Results may be falsely elevated after the administration of Sulfapyridine. Results may be falsely depressed after the administration of Sulfasalazine. Performed By: #### B HB, , #### [facility] CLIA [id number] [address] [place], [place] [address] [place] Potassium [Moles/Vol] 3.5 mmol/L Normal 3.5-5.1 [facility] Comment on above: Order Comment: Moses burton Type: BLOOD SPECIMEN Ordering Facility: [facility] Address: [address] [id number] Performed By: #### B HB, , #### [facility] CLIA [id number] [address] [place] [address] [place] Sodium [Moles/Vol] 143 mmol/L Normal 136-145 [facility] Comment on above: Order Comment: Speci men Type: BLOOD SPECIMEN Ordering Facility: [facility] Address: [address] [place] [address] Performed By: #### B HB, , #### [facility] CLIA [id number] [address] [place] [address] [place] Urea nitrogen [Mass/Vol] 10 mg/dL Normal 7-26 [facility] Comment on above: Order Comment: Speci men Type: BLOOD SPECIMEN Ordering Facility: [facility] Address: [address] [place] [address] Performed By: #### B HB, , #### [facility] CLIA [id number] [address] [place] [address] [place] Anion gap [Moles/Vol] 9 mmol/L Normal 5-16 [facility] Comment on above: Order Comment: Speci men Type: BLOOD SPECIMEN Ordering Facility: [facility] Address: [address] [place] [address] Performed By: #### B HB, , #### [facility] CLIA [id number] [address] [place], [place] [address] [place] Calcium [Mass/Vol] 8.4 mg/dL Low 8.5-10.5 [facility] Comment on above: Order Comment: Speci men Type: BLOOD SPECIMEN Ordering Facility: [facility] Address: [address] [place] [address] Performed By: #### B HB, , #### [facility] CLIA [id number] [address] [place], [place] [address] [place] Chloride [Moles/Vol] 108 mmol/L High 98-107 [facility] Comment on above: Order Comment: Speci men Type: BLOOD SPECIMEN Ordering Facility: [facility] Address: [address] [place] [address] Performed By: #### B HB, , #### [facility] CLIA [id number] [address] [place] [address] [place] CO2 [Moles/Vol] 26 mmol/L Normal 21-32 [facility] Comment on above: Order Comment: Speci men Type: BLOOD SPECIMEN Ordering Facility: [facility] Address: [address] [place] [address] Performed By: #### B HB, , #### [facility] CLIA [id number] [address] [place] [address] [place] Creatinine [Mass/Vol] 0.71 mg/dL Normal 0.50-1.40 [facility] Comment on above: Order Comment: Speci men Type: BLOOD SPECIMEN Ordering Facility: [facility] Address: [address] [place] [address] Result Comment: Desiree ents receiving either N-Acetylcysteine (NAC) or Metamizole prior to venipuncture, may have falsely depressed results. Performed By: #### B HB, , #### [facility] CLIA [id number] [address] [place] [address] OF [facility] Creatinine and Glomerular filtration rate.predicted panel (S/P/Bld) 116 mL/min/1.73m??? Normal >=60 [facility] Comment on above: Order Comment: Speci men Type: BLOOD SPECIMEN Ordering Facility: [facility] Address: [address] [place] [address] Result Comment: Rosanna mated Glomerular Filtration Rate (eGFR) is calculated using the 2020 CKD-EPI creatinine equation. This equation utilizes serum creatinine, sex, and age as parameters. The creatinine assay has traceable calibration to isotope dilution-mass spectrometry. Refer to KDIGO guidelines for clinical interpretation. In patients with unstable renal function, e.g. those with acute kidney injury, the eGFR may not accurately reflect actual GFR. Performed By: #### B HB, , #### [facility] CLIA [id number] [address] [place], [place] [address] [place] Glucose [Mass/Vol] 220 mg/dL High 70-100 [facility] Comment on above: Order Comment: Moses burton Type: BLOOD SPECIMEN Ordering Facility: [facility] Address: [address] [id number] Result Comment: The [place] Diabetes Association (ADA) provides guidance for cutoff values for fasting glucose and random glucose. The ADA defines fasting as no caloric intake for at least 8 hours. Fasting plasma glucose results between 100 to 125 mg/dL indicate increased risk for diabetes (prediabetes). Fasting plasma glucose results greater than or equal to 126 mg/dL meet the criteria for diagnosis of diabetes. In the absence of unequivocal hyperglycemia, results should be confirmed by repeat testing. In a patient with classic symptoms of hyperglycemia or hyperglycemic crisis, random plasma glucose results greater than or equal to 200 mg/dL meet the criteria for diagnosis of diabetes. Reference: Standards of Medical Care in Diabetes 2016, [place] [employer]. Diabetes Care. 2016.39(Suppl 1). Results may be falsely elevated after the administration of Sulfapyridine. Results may be falsely depressed after the administration of Sulfasalazine. Performed By: #### B HB, , #### [facility] CLIA [id number] [address] [place] [address] [place] Potassium [Moles/Vol] 3.8 mmol/L Normal 3.5-5.1 [facility] Comment on above: Order Comment: Moses burton Type: BLOOD SPECIMEN Ordering Facility: [facility] Address: [address] [place] [address] Performed By: #### B HB, , #### [facility] CLIA [id number] [address] [place], [place] [address] [place] Sodium [Moles/Vol] 143 mmol/L Normal 136-145 [facility] Comment on above: Order Comment: Moses burton Type: BLOOD SPECIMEN Ordering Facility: [facility] Address: [address] [id number] Performed By: #### B HB, , 23172-8 #### [facility] CLIA [id number] [address] [place], [place] [address] [place] Urea nitrogen [Mass/Vol] 12 mg/dL Normal 7-26 [facility] Comment on above: Order Comment: Speci men Type: BLOOD SPECIMEN Ordering Facility: [facility] Address: [address] [place] [address] Performed By: #### B HB, , 31393-9 #### [facility] CLIA [id number] [address] [place] [address] [place] Anion gap [Moles/Vol] 12 mmol/L Normal 5-16 [facility] Comment on above: Order Comment: Speci men Type: BLOOD SPECIMEN Ordering Facility: [facility] Address: [address] [place] [address] Performed By: #### B HB, , #### [facility] CLIA [id number] [address] [place] [address] [place] Calcium [Mass/Vol] 8.5 mg/dL Normal 8.5-10.5 [facility] Comment on above: Order Comment: Speci men Type: BLOOD SPECIMEN Ordering Facility: [facility] Address: [address] [place] [address] Performed By: #### B HB, , 99019-5 #### [facility] CLIA [id number] [address] [place], [place] [address] [place] Chloride [Moles/Vol] 107 mmol/L Normal 98-107 [facility] Comment on above: Order Comment: Speci men Type: BLOOD SPECIMEN Ordering Facility: [facility] Address: [address] [place] [address] Performed By: #### B HB, , 87727-2 #### [facility] CLIA [id number] [address] [place] [address] [place] CO2 [Moles/Vol] 23 mmol/L Normal 21-32 [facility] Comment on above: Order Comment: Speci men Type: BLOOD SPECIMEN Ordering Facility: [facility] Address: [address] [place] [address] Performed By: #### B HB, , #### [facility] CLIA [id number] [address] [place] [address] [place] Creatinine [Mass/Vol] 0.72 mg/dL Normal 0.50-1.40 [facility] Comment on above: Order Comment: Speci men Type: BLOOD SPECIMEN Ordering Facility: [facility] Address: [address] [place] [address] Result Comment: Desiree ents receiving either N-Acetylcysteine (NAC) or Metamizole prior to venipuncture, may have falsely depressed results. Performed By: #### B HB, , #### [facility] CLIA [id number] [address] [place] [address] [place] Creatinine and Glomerular filtration rate.predicted panel (S/P/Bld) 116 mL/min/1.73m??? Normal >=60 [facility] Comment on above: Order Comment: Delfinai josephine Type: BLOOD SPECIMEN Ordering Facility: [facility] Address: [address] [place] [address] Result Comment: Rosanna mated Glomerular Filtration Rate (eGFR) is calculated using the 2020 CKD-EPI creatinine equation. This equation utilizes serum creatinine, sex, and age as parameters. The creatinine assay has traceable calibration to isotope dilution-mass spectrometry. Refer to KDIGO guidelines for clinical interpretation. In patients with unstable renal function, e.g. those with acute kidney injury, the eGFR may not accurately reflect actual GFR. Performed By: #### B HB, , #### [facility] CLIA [id number] [address] [place], [place] [address] [place] Glucose [Mass/Vol] 286 mg/dL High 70-100 [facility] Comment on above: Order Comment: Speci josephine Type: BLOOD SPECIMEN Ordering Facility: [facility] Address: [address] [place], [place] [address] Result Comment: The [place] Diabetes Association (ADA) provides guidance for cutoff values for fasting glucose and random glucose. The ADA defines fasting as no caloric intake for at least 8 hours. Fasting plasma glucose results between 100 to 125 mg/dL indicate increased risk for diabetes (prediabetes). Fasting plasma glucose results greater than or equal to 126 mg/dL meet the criteria for diagnosis of diabetes. In the absence of unequivocal hyperglycemia, results should be confirmed by repeat testing. In a patient with classic symptoms of hyperglycemia or hyperglycemic crisis, random plasma glucose results greater than or equal to 200 mg/dL meet the criteria for diagnosis of diabetes. Reference: Standards of Medical Care in Diabetes 2016, [place] [employer]. Diabetes Care. 2016.39(Suppl 1). Results may be falsely elevated after the administration of Sulfapyridine. Results may be falsely depressed after the administration of Sulfasalazine. Performed By: #### B HB, , #### [facility] CLIA [id number] [address] [place] [address] [place] Potassium [Moles/Vol] 4.0 mmol/L Normal 3.5-5.1 [facility] Comment on above: Order Comment: Moses burton Type: BLOOD SPECIMEN Ordering Facility: [facility] Address: [address] [place] [address] Performed By: #### B HB, , #### [facility] CLIA [id number] [address] [place] [address] [place] Sodium [Moles/Vol] 142 mmol/L Normal 136-145 [facility] Comment on above: Order Comment: Moses burton Type: BLOOD SPECIMEN Ordering Facility: [facility] Address: [address] [place], [place] [address] Performed By: #### B HB, , #### [facility] CLIA [id number] [address] [place] [address] [place] Urea nitrogen [Mass/Vol] 12 mg/dL Normal 7-26 [facility] Comment on above: Order Comment: Speci men Type: BLOOD SPECIMEN Ordering Facility: [facility] Address: [address] [place] [address] Performed By: #### B HB, , 40050-0 #### [facility] CLIA [id number] [address] [place] [address] [place] Anion gap [Moles/Vol] 8 mmol/L Normal 5-16 [facility] Comment on above: Order Comment: Speci men Type: BLOOD SPECIMEN Ordering Facility: [facility] Address: [address] [place] [address] Performed By: #### B HB, , #### [facility] CLIA [id number] [address] [place] [address] [place] Calcium [Mass/Vol] 8.5 mg/dL Normal 8.5-10.5 [facility] Comment on above: Order Comment: Speci men Type: BLOOD SPECIMEN Ordering Facility: [facility] Address: [address] [place] [address] Performed By: #### B HB, , #### [facility] CLIA [id number] [address] [place], [place] [address] [place] Chloride [Moles/Vol] 109 mmol/L High 98-107 [facility] Comment on above: Order Comment: Speci men Type: BLOOD SPECIMEN Ordering Facility: [facility] Address: [address] [place] [address] Performed By: #### B HB, , 42098-3 #### [facility] CLIA [id number] [address] [place], [place] [address] [place] CO2 [Moles/Vol] 26 mmol/L Normal 21-32 [facility] Comment on above: Order Comment: Speci men Type: BLOOD SPECIMEN Ordering Facility: [facility] Address: [address] [place] [address] Performed By: #### B HB, , #### [facility] CLIA [id number] [address] [place] [address] [place] Creatinine [Mass/Vol] 0.74 mg/dL Normal 0.50-1.40 [facility] Comment on above: Order Comment: Moses burton Type: BLOOD SPECIMEN Ordering Facility: [facility] Address: [address] [place] [address] Result Comment: Desiree ents receiving either N-Acetylcysteine (NAC) or Metamizole prior to venipuncture, may have falsely depressed results. Performed By: #### B HB, , #### [facility] CLIA [id number] [address] [place] [address] OF [place] Creatinine and Glomerular filtration rate.predicted panel (S/P/Bld) 115 mL/min/1.73m??? Normal >=60 [facility] Comment on above: Order Comment: Moses burton Type: BLOOD SPECIMEN Ordering Facility: [facility] Address: [address] [place] [address] Result Comment: Rosanna mated Glomerular Filtration Rate (eGFR) is calculated using the 2020 CKD-EPI creatinine equation. This equation utilizes serum creatinine, sex, and age as parameters. The creatinine assay has traceable calibration to isotope dilution-mass spectrometry. Refer to KDIGO guidelines for clinical interpretation. In patients with unstable renal function, e.g. those with acute kidney injury, the eGFR may not accurately reflect actual GFR. Performed By: #### B HB, , #### [facility] CLIA [id number] [address] [place], [place] [address] [place] Glucose [Mass/Vol] 173 mg/dL High 70-100 [facility] Comment on above: Order Comment: Moses burton Type: BLOOD SPECIMEN Ordering Facility: [facility] Address: [address] [place] [address] Result Comment: The [place] [employer] (ADA) provides guidance for cutoff values for fasting glucose and random glucose. The ADA defines fasting as no caloric intake for at least 8 hours. Fasting plasma glucose results between 100 to 125 mg/dL indicate increased risk for diabetes (prediabetes). Fasting plasma glucose results greater than or equal to 126 mg/dL meet the criteria for diagnosis of diabetes. In the absence of unequivocal hyperglycemia, results should be confirmed by repeat testing. In a patient with classic symptoms of hyperglycemia or hyperglycemic crisis, random plasma glucose results greater than or equal to 200 mg/dL meet the criteria for diagnosis of diabetes. Reference: Standards of Medical Care in Diabetes 2016, [place] [employer]. Diabetes Care. 2016.39(Suppl 1). Results may be falsely elevated after the administration of Sulfapyridine. Results may be falsely depressed after the administration of Sulfasalazine. Performed By: #### B HB, , 26328-0 #### [facility] CLIA [id number] [address] [place] [address] [place] Potassium [Moles/Vol] 4.0 mmol/L Normal 3.5-5.1 [facility] Comment on above: Order Comment: Moses burton Type: BLOOD SPECIMEN Ordering Facility: [facility] Address: [address] [place] [address] Performed By: #### B HB, , #### [facility] CLIA [id number] [address] [place] [address] [place] Sodium [Moles/Vol] 143 mmol/L Normal 136-145 [facility] Comment on above: Order Comment: Moses burton Type: BLOOD SPECIMEN Ordering Facility: [facility] Address: [address] [place] [address] Performed By: #### B HB, , #### [facility] CLIA [id number] [address] [place] [address] [place] Urea nitrogen [Mass/Vol] 11 mg/dL Normal 7-26 [facility] Comment on above: Order Comment: Moses burton Type: BLOOD SPECIMEN Ordering Facility: [facility] Address: [address] [place] [address] Performed By: #### B HB, , 07164-1 #### [facility] CLIA [id number] [address] [place] [address] [place] Anion gap [Moles/Vol] 7 mmol/L Normal 5-16 [facility] Comment on above: Order Comment: Speci men Type: BLOOD SPECIMEN Ordering Facility: [facility] Address: [address] [place] [address] Performed By: #### B HB, , 81975-4 #### [facility] CLIA [id number] [address] [place] [address] [place] Calcium [Mass/Vol] 7.9 mg/dL Low 8.5-10.5 [facility] Comment on above: Order Comment: Speci men Type: BLOOD SPECIMEN Ordering Facility: [facility] Address: [address] [place] [address] Performed By: #### B HB, , #### [facility] CLIA [id number] [address] [place] [address] [place] Chloride [Moles/Vol] 109 mmol/L High 98-107 [facility] Comment on above: Order Comment: Speci men Type: BLOOD SPECIMEN Ordering Facility: [facility] Address: [address] [place] [address] Performed By: #### B HB, , #### [facility] CLIA [id number] [address] [place] [address] [place] CO2 [Moles/Vol] 23 mmol/L Normal 21-32 [facility] Comment on above: Order Comment: Speci men Type: BLOOD SPECIMEN Ordering Facility: [facility] Address: [address] [place] [address] Performed By: #### B HB, , #### [facility] CLIA [id number] [address] [place], [place] [address] [place] Creatinine [Mass/Vol] 0.81 mg/dL Normal 0.50-1.40 [facility] Comment on above: Order Comment: Speci men Type: BLOOD SPECIMEN Ordering Facility: [facility] Address: [address] [place] [id number] Result Comment: Desiree ents receiving either N-Acetylcysteine (NAC) or Metamizole prior to venipuncture, may have falsely depressed results. Performed By: #### B HB, , #### [facility] CLIA [id number] [address] [place] [address] [place] Creatinine and Glomerular filtration rate.predicted panel (S/P/Bld) 111 mL/min/1.73m??? Normal >=60 [facility] Comment on above: Order Comment: Moses burton Type: BLOOD SPECIMEN Ordering Facility: [facility] Address: [address] [place] [address] Result Comment: Rosanna mated Glomerular Filtration Rate (eGFR) is calculated using the 2020 CKD-EPI creatinine equation. This equation utilizes serum creatinine, sex, and age as parameters. The creatinine assay has traceable calibration to isotope dilution-mass spectrometry. Refer to KDIGO guidelines for clinical interpretation. In patients with unstable renal function, e.g. those with acute kidney injury, the eGFR may not accurately reflect actual GFR. Performed By: #### B HB, , #### [facility] CLIA [id number] [address] [place] [address] [place] Glucose [Mass/Vol] 176 mg/dL High 70-100 [facility] Comment on above: Order Comment: Moses burton Type: BLOOD SPECIMEN Ordering Facility: [facility] Address: [address] [place] [address] Result Comment: The [place] Diabetes Association (ADA) provides guidance for cutoff values for fasting glucose and random glucose. The ADA defines fasting as no caloric intake for at least 8 hours. Fasting plasma glucose results between 100 to 125 mg/dL indicate increased risk for diabetes (prediabetes). Fasting plasma glucose results greater than or equal to 126 mg/dL meet the criteria for diagnosis of diabetes. In the absence of unequivocal hyperglycemia, results should be confirmed by repeat testing. In a patient with classic symptoms of hyperglycemia or hyperglycemic crisis, random plasma glucose results greater than or equal to 200 mg/dL meet the criteria for diagnosis of diabetes. Reference: Standards of Medical Care in Diabetes 2016, [place] [employer]. Diabetes Care. 2016.39(Suppl 1). Results may be falsely elevated after the administration of Sulfapyridine. Results may be falsely depressed after the administration of Sulfasalazine. Performed By: #### B HB, , #### [facility] CLIA [id number] [address] [place] [address] [place] Potassium [Moles/Vol] 3.8 mmol/L Normal 3.5-5.1 [facility] Comment on above: Order Comment: Speci men Type: BLOOD SPECIMEN Ordering Facility: [facility] Address: [address] [place] [address] Performed By: #### B HB, , #### [facility] CLIA [id number] [address] [place] [address] [place] Sodium [Moles/Vol] 139 mmol/L Normal 136-145 [facility] Comment on above: Order Comment: Speci men Type: BLOOD SPECIMEN Ordering Facility: [facility] Address: [address] [place] [address] Performed By: #### B HB, , 07892-8 #### [facility] CLIA [id number] [address] [place] [address] [place] Urea nitrogen [Mass/Vol] 8 mg/dL Normal 7-26 [facility] Comment on above: Order Comment: Speci men Type: BLOOD SPECIMEN Ordering Facility: [facility] Address: [address] [place] [address] Performed By: #### B HB, , #### [facility] CLIA [id number] [address] [place], [place] [address] [place] Anion gap [Moles/Vol] 5 mmol/L Normal 5-16 [facility] Comment on above: Order Comment: Speci men Type: BLOOD SPECIMEN Ordering Facility: [facility] Address: [address] [place] [address] Performed By: #### B HB, , #### [facility] CLIA [id number] [address] [place] [address] [place] Calcium [Mass/Vol] 8.0 mg/dL Low 8.5-10.5 [facility] Comment on above: Order Comment: Speci men Type: BLOOD SPECIMEN Ordering Facility: [facility] Address: [address] [place] [address] Performed By: #### B HB, , #### [facility] CLIA [id number] [address] [place] [address] [place] Chloride [Moles/Vol] 109 mmol/L High 98-107 [facility] Comment on above: Order Comment: Speci men Type: BLOOD SPECIMEN Ordering Facility: [facility] Address: [address] [place] [address] Performed By: #### B HB, , #### [facility] CLIA [id number] [address] [place] [address] [place] CO2 [Moles/Vol] 27 mmol/L Normal 21-32 [facility] Comment on above: Order Comment: Speci men Type: BLOOD SPECIMEN Ordering Facility: [facility] Address: [address] [place] [address] Performed By: #### B HB, , #### [facility] CLIA [id number] [address] [place] [address] [place] Creatinine [Mass/Vol] 0.87 mg/dL Normal 0.50-1.40 [facility] Comment on above: Order Comment: Speci men Type: BLOOD SPECIMEN Ordering Facility: [facility] Address: [address] [place] [address] Result Comment: Desiree ents receiving either N-Acetylcysteine (NAC) or Metamizole prior to venipuncture, may have falsely depressed results. Performed By: #### B HB, , #### [facility] CLIA [id number] [address] [place] [address] [place] Creatinine and Glomerular filtration rate.predicted panel (S/P/Bld) 109 mL/min/1.73m??? Normal >=60 [facility] Comment on above: Order Comment: Moses burton Type: BLOOD SPECIMEN Ordering Facility: [facility] Address: [address] [place] [address] Result Comment: Rosanna mated Glomerular Filtration Rate (eGFR) is calculated using the 2020 CKD-EPI creatinine equation. This equation utilizes serum creatinine, sex, and age as parameters. The creatinine assay has traceable calibration to isotope dilution-mass spectrometry. Refer to KDIGO guidelines for clinical interpretation. In patients with unstable renal function, e.g. those with acute kidney injury, the eGFR may not accurately reflect actual GFR. Performed By: #### B HB, , #### [facility] CLIA [id number] [address] [place] [address] [place] Glucose [Mass/Vol] 125 mg/dL High 70-100 [facility] Comment on above: Order Comment: Moses burton Type: BLOOD SPECIMEN Ordering Facility: [facility] Address: [address] [place] [address] Result Comment: The [place] Diabetes Association (ADA) provides guidance for cutoff values for fasting glucose and random glucose. The ADA defines fasting as no caloric intake for at least 8 hours. Fasting plasma glucose results between 100 to 125 mg/dL indicate increased risk for diabetes (prediabetes). Fasting plasma glucose results greater than or equal to 126 mg/dL meet the criteria for diagnosis of diabetes. In the absence of unequivocal hyperglycemia, results should be confirmed by repeat testing. In a patient with classic symptoms of hyperglycemia or hyperglycemic crisis, random plasma glucose results greater than or equal to 200 mg/dL meet the criteria for diagnosis of diabetes. Reference: Standards of Medical Care in Diabetes 2016, [place] [employer]. Diabetes Care. 2016.39(Suppl 1). Results may be falsely elevated after the administration of Sulfapyridine. Results may be falsely depressed after the administration of Sulfasalazine. Performed By: #### B HB, , #### [facility] CLIA [id number] [address] [place] [address] [place] Potassium [Moles/Vol] 3.6 mmol/L Normal 3.5-5.1 [facility] Comment on above: Order Comment: Speci men Type: BLOOD SPECIMEN Ordering Facility: [facility] Address: [address] [place] [address] Performed By: #### B HB, , 23624-7 #### [facility] CLIA [id number] [address] [place] [address] [place] Sodium [Moles/Vol] 141 mmol/L Normal 136-145 [facility] Comment on above: Order Comment: Speci men Type: BLOOD SPECIMEN Ordering Facility: [facility] Address: [address] [place] [address] Performed By: #### B HB, , 55635-5 #### [facility] CLIA [id number] [address] [place] [address] [place] Urea nitrogen [Mass/Vol] 11 mg/dL Normal 7-26 [facility] Comment on above: Order Comment: Speci men Type: BLOOD SPECIMEN Ordering Facility: [facility] Address: [address] [place] [address] Performed By: #### B HB, , #### [facility] CLIA [id number] [address] [place], [place] [address] [place] CONSULT PROGon 02-08-2024 CONSULT PROG HNO ID: [id number] Author: HERIBERTO JIMENEZ RPh Service: Pharmacy Author Type: Pharmacist Type: Consult Progress Note Filed: 02/08/2024 09:36 Note Text: PHARMACY VANCOMYCIN DOSING NOTE Patient Name: Luisito Zhong Admission Date: 02/06/2024 Date of Consult: 02/08/2024 Time of Consult: 9:36 AM Vancomycin has been discontinued by Dr. Dan. Thank you for the consult. Heriberto Jimenez RPh Normal [facility] HIGH SENSITIVITY TROPONIN Io n 02-08-2024 Tropinin I.cardiac panel High sensitivity method 62.9 pg/mL High 0.0-54.0 [facility] Comment on above: Order Comment: Speci men Type: BLOOD SPECIMEN Ordering Facility: [facility] Address: [address] [place] [address] Result Comment: CRIT ICAL Performed By: #### B HB, , #### [facility] CLIA [id number] [address] [place], [place] [address] [place] Tropinin I.cardiac panel High sensitivity method 67.1 pg/mL High 0.0-54.0 [facility] Comment on above: Order Comment: Speci men Type: BLOOD SPECIMEN Ordering Facility: [facility] Address: [address] [place] [address] Result Comment: CRIT ICAL Performed By: #### B HB, , #### [facility] CLIA [id number] [address] [place] [address] [place] Tropinin I.cardiac panel High sensitivity method 79.7 pg/mL High 0.0-54.0 [facility] Comment on above: Order Comment: Speci men Type: BLOOD SPECIMEN Ordering Facility: [facility] Address: [address] [place] [address] Result Comment: CRIT ICAL Performed By: #### B HB, , #### [facility] CLIA [id number] [address] [place], [place] [address] [place] Tropinin I.cardiac panel High sensitivity method 78.0 pg/mL High 0.0-54.0 [facility] Comment on above: Order Comment: Speci men Type: BLOOD SPECIMEN Ordering Facility: [facility] Address: [address] [place] [address] Result Comment: CRIT ICAL Performed By: #### B HB, , #### [facility] CLIA [id number] [address] [place], [place] [address] [place] Lactate (Bld) [Moles/Vol]on 02-08-2024 Lactate [Moles/Vol] 1.7 mmol/L Normal 0.4-2.0 [facility] Comment on above: Order Comment: Speci men Type: BLOOD SPECIMEN Ordering Facility: [facility] Address: [address] [place] [address] Performed By: #### B HB, , #### [facility] CLIA [id number] [address] [place] [address] [place] Lactate [Moles/Vol] 1.4 mmol/L Normal 0.4-2.0 [facility] Comment on above: Order Comment: Speci men Type: BLOOD SPECIMEN Ordering Facility: [facility] Address: [address] [place] [address] Performed By: #### B HB, , #### [facility] CLIA [id number] [address] [place] [address] Lactate [Moles/Vol] 1.2 mmol/L Normal 0.4-2.0 [facility] Comment on above: Order Comment: Speci men Type: BLOOD SPECIMEN Ordering Facility: [facility] Address: [address] [place], [place] [address] Performed By: #### B HB, , #### [facility] CLIA [id number] [address] [place] [address] [place] [facility] Lactate [Moles/Vol] 1.3 mmol/L Normal 0.4-2.0 [facility] Comment on above: Order Comment: Speci men Type: BLOOD SPECIMEN Ordering Facility: [facility] Address: [address] [place] [address] Performed By: #### B HB, , #### [facility] CLIA [id number] [address] [place], [place] [address] [facility] NUTRITIONon 02-08-2024 NUTRITION HNO ID: [id number] Author: JSOELINE SMYTH RD Service: ? Author Type: Registered Dietitian Type: Nutrition Filed: 02/08/2024 14:56 Note Text: NUTRITION THERAPY INITIAL ASSESSMENT SERVICE DATE: 02/08/2024 SERVICE TIME: 1035 Consulted for nutrition assessment and enteral nutrition recommendations. Pt has since been extubated and diet has been advanced. Nutrition Assessment: Recommended Malnutrition Diagnosis: Unable to Identify Malnutrition at this time Nutrition Diagnosis: Problem: Suboptimal protein/energy intake Related to: Mechanical cause As evidenced by: Intubation Care Plan: Continue current diet Supplements: Boost Glucose Control Monitor and Evaluation: Meet greater than 75% of estimated needs, Monitor fluid/electrolyte balance, Monitor labs, I/Os, vital signs, weight, Monitor bowel function Discharge Recommendations: Diet Diet: Consistent Carb HPI: Presented w/ SOB, confusion, and restlessness. Pt found to be in DKA, insulin gtt initiated. PMH T1DM on insulin pump -UDS + for cocaine -intubated for airway protection I/s/o worsening mentation -CXR c/f asp PNA 02/06: DKA resolved, bridged to sq insulin. 02/07: extubated to [place]. Passed CLAIMS ADJUSTOR eval, diet advanced Fluid status +8.7L since admit Intake History: Nutrition Intake Prior to Admission: Unable to determine Current Nutrition Intake: 0-25% estimated energy needs (per I/O's) Current Intake Over time: (x 1 day LOS) Dosing Weight: 89.1 kg (196 lb 6.9 oz) Dosing Weight Type: Admit weight Estimated kilocalorie needs: 1999 - 2200 Calorie Calculation Method: Sullivan-St. Jeor (with activity factor) Estimated protein needs (grams): 105 - 135 Grams protein determined by: 1.2 - 1.5 g/kg Diet Orders (From admission, onward) Start Ordered 02/08/24 1445 DIET CARBOHYDRATE CONTROLLED START NOW Question: Carbohydrate Control Answer: CONSISTENT CARBOHYDRATE 02/08/24 1432 Anthropometrics: Height: 180.3 cm (5' 11) Weight: 95 kg (209 lb 7 oz) Usual Weight: 83.9 kg (184 lb 15.5 oz) (02/17/23- 83.7kg) 11/24/23 Usual Weight Obtained From: Care Everywhere Body mass index is 29.21 kg/m?. Weight Change: Weight gain Physical Exam: Subcutaneous fat loss: No fat loss Muscle loss: No muscle loss Potential micronutrient deficiency: No deficiency identified Edema/Ascites: Lower extremities, Generalized, No ascites Lower Extremity: Mild 1+ GI Symptoms: (per NPR: abd distention) Functional Status: Unable to assess Potential Signs of Inflammation: Chronic condition, Critically ill, Hyperglycemia, Hypoalbuminemia, Imaging studies DM MNT Billing: $ Initial Assessment: 1-15 minutes SIGNATURE: Joseline Smyth RD PATIENT NAME: Luisito Zhong DATE: February 08, 2024 TIME: 2:[address] [facility] Phosphate SerPl-mCncon 02-07 Phosphate [Mass/Vol] 2.2 mg/dL Low 2.5-4.9 [facility] Comment on above: Order Comment: Moses burton Type: BLOOD SPECIMEN Ordering Facility: [facility] Address: [address] [place] [address] Result Comment: Elev ated m-protein (paraprotein) levels in the serum may be exhibited in patients with monoclonal gammopathies, causing falsely elevated inorganic phosphorus results. Performed By: #### B HB, 30985-0, 24831-8 #### [facility] CLIA [id number] [address] [place] [address] [place] T4 Free SerPl-mCncon 024 Free T4 [Mass/Vol] 0.3 ng/dL Low 0.8-1.5 [facility] Comment on above: Order Comment: Moses burton Type: BLOOD SPECIMEN Ordering Facility: [facility] Address: [address] [place] [address] Performed By: #### B HB, 16411-6, 85065-4 #### [facility] CLIA [id number] [address] [place] [address] [place] ALLIED HEALTHon 02-07-2024 ALLIED HEALTH HNO ID: [id number] Author: CALVIN GUZMAN, ROXANA Service: Wound/Ostomy Author Type: Registered Nurse Type: Allied Health Filed: 02/07/2024 15:21 Note Text: Summary: Wound Care Nurse Consult Wound Care Nurse Consult Patient: Luisito Zhong : 1980 Admit Date: 02/06/2024 REASON FOR CONSULT: left leg wound ASSESSMENT: Wound 02/07/24 0700 Puncture Leg Left;Lateral (Active) Properties Placement Date 02/07/24 Placement Time 0700 Location Leg Present on Original Admission Yes Primary Wound Type Puncture (possible IV drug use, possible bug bite; etiology unknown at this time) Wound Location Orientation Left;Lateral Wound Description (Comments) possible IV drug use, possible bug bite; etiology unknown at this time Assessments 02/07/2024 3:18 PM Wound Image Site Assessment Yellow;Pinto;Sloughing Rani-Wound Assessment Erythematous Shape -- Wound Length (cm) 1.7 cm Wound Width (cm) 1.4 cm Wound Surface Area (cm2) 2.38 cm2 Wound Depth (cm) 0.2 cm Wound Volume (cm3) 0.476 cm3 Drainage Description Brown Drainage Amount Scant Odor None Treatments Cleansed Dressing Foam- Adhesive Dressing Changed Reinforced Dressing Status -- Wound Bed Slough (%) 100 % Non-staged Wound Description Full thickness Active Orders Date Order Priority Status Authorizing Provider 02/07/24 1013 Wound Care Consult Routine Active Giorgi Ramirez, LUMBER HACKER.SENIOR TECHNICAL ARCHITECT - Wound present on admission to the hospital:: Yes - Location of Wound:: Leg - Laterality:: Left - Wound being followed by a Clinician/LIP:: No - Clinician/LIP need Wound Care Team to recommend treatment - Pressure Injury color:: Red RECOMMENDATIONS: Left Lateral Leg: clean with foam cleanser, pat dry. Apply skin prep to periwound. Apply nickel thick layer of medihoney gel to wound bed, cover with adhesive foam. Change daily. (Obtain medihoney gel from [employer]). Re-consult Wound Care if skin or wounds deteriorate further or if new problems arise. Normal [facility] ARTERIAL BLOOD GASESon 02-06 Base deficit (BldA) [Moles/Vol] -16 mmol/L Low -2-0 [facility] Comment on above: Order Comment: Speci men Type: BLOOD SPECIMEN Ordering Facility: [facility] Address: [address] [place] [address] Performed By: #### 5 5454-3 #### [facility] CLIA [id number] [address] [place] [address] [place] #### 43877-0 #### [facility] CLIA [id number] [address] [place] [address] [place] Body temperature 98.6 [degF] Normal [facility] Comment on above: Order Comment: Speci men Type: BLOOD SPECIMEN Ordering Facility: [facility] Address: [address] [place] [address] Performed By: #### 5 5454-3 #### [facility] CLIA [id number] [address] [place] [address] [place] #### 51572-5 #### [facility] CLIA [id number] [address] [place] [address] [place] Calcium.ionized (Bld) [Mass/Vol] 1.21 mmol/L Normal 1.08-1.30 [facility] Comment on above: Order Comment: Speci men Type: BLOOD SPECIMEN Ordering Facility: [facility] Address: [address] [place] [address] Performed By: #### 5 5454-3 #### [facility] CLIA [id number] [address] [place] [address] [place] #### 97426-3 #### [facility] CLIA [id number] [address] [place] [address] [place] Carboxyhemoglobin (BldA) [Mass fraction] 0.3 % Normal 0.0-2.0 [facility] Comment on above: Order Comment: Speci men Type: BLOOD SPECIMEN Ordering Facility: [facility] Address: [address] [place] [address] Result Comment: Carb oxyhemoglobin Reference Range for Smokers: 2.0-8.0% Performed By: #### 5 5454-3 #### [facility] CLIA [id number] [address] [place] [address] [place] #### 36043-1 #### [facility] CLIA [id number] [address] [place] [address] [place] CO2 (Bld) [Partial pressure] 22 mm Hg Low 36-46 [facility] Comment on above: Order Comment: Speci men Type: BLOOD SPECIMEN Ordering Facility: [facility] Address: [address] [place] [address] Performed By: #### 5 5454-3 #### [facility] CLIA [id number] [address] [place] [address] [place] #### 65676-5 #### [facility] CLIA [id number] [address] [place] [address] [place] FIO2 100.0 % Normal [facility] Comment on above: Order Comment: Speci men Type: BLOOD SPECIMEN [facility] [facility] Address: [address] [place] [address] Performed By: #### 5 5454-3 #### [facility] CLIA [id number] [address] [place] [address] [place] #### 50884-8 #### [facility] CLIA [id number] [address] [place] [address] [place] Glucose [Mass/Vol] 363 mg/dL High 60-105 [facility] Comment on above: Order Comment: Speci men Type: BLOOD SPECIMEN Ordering Facility: [facility] Address: [address] [place] [address] Performed By: #### 5 5454-3 #### [facility] CLIA [id number] [address] [place] [address] [place] #### 23256-6 #### [facility] CLIA [id number] [address] [place], [place] [address] [place] HCO3 (Bld) [Moles/Vol] 10 mmol/L Low 22-26 [facility] Comment on above: Order Comment: Speci men Type: BLOOD SPECIMEN Ordering Facility: [facility] Address: [address] [place] [address] Performed By: #### 5 5454-3 #### [facility] CLIA [id number] [address] [place] [address] [place] #### 29965-8 #### [facility] CLIA [id number] [address] [place] [address] [place] Hemoglobin (Bld) [Mass/Vol] 12.7 g/dL Low 13.0-17.0 [facility] Comment on above: Order Comment: Speci men Type: BLOOD SPECIMEN Ordering Facility: [facility] Address: [address] [place] [address] Performed By: #### 5 5454-3 #### [facility] CLIA [id number] [address] [place] [address] [place] #### 07552-3 #### [facility] CLIA [id number] [address] [place] [address] [place] INHALED TIDAL VOLUME (ML) [address] [facility] Comment on above: Order Comment: Speci men Type: BLOOD SPECIMEN Ordering Facility: [facility] Address: [facility] [place] [address] Performed By: #### 5 5454-3 #### [facility] CLIA [id number] [address] [place] [address] [place] #### 02027-6 #### [facility] CLIA [id number] [address] [place] [address] [place] INVASIVE VENTILATOR MODE A/C PRVC or VC+ or APVcmv (PC-CMVa) Normal [facility] Comment on above: Order Comment: Speci men Type: BLOOD SPECIMEN Ordering Facility: [facility] Address: [address] [place] [address] Performed By: #### 5 5454-3 #### [facility] CLIA [id number] [address] [place] [address] [place] #### 15935-3 #### [facility] CLIA [id number] [address] [place] [address] [place] Lactate [Moles/Vol] 4.9 mmol/L High 0.5-2.2 [facility] Comment on above: Order Comment: Speci men Type: BLOOD SPECIMEN Ordering Facility: [facility] Address: [address] [place] [address] Performed By: #### 5 5454-3 #### [facility] CLIA [id number] [address] [place] [address] [place] #### 56551-8 #### [facility] CLIA [id number] [address] [place] [address] [place] Methemoglobin (Bld) [Mass fraction] 0.5 % Normal 0.0-1.5 [facility] Comment on above: Order Comment: Speci men Type: BLOOD SPECIMEN Ordering Facility: [facility] Address: [address] [place] [address] Performed By: #### 5 5454-3 #### [facility] CLIA [id number] [address] [place] [address] [place] #### 50834-5 #### [facility] CLIA [id number] [address] [place] [address] [place] O2 THERAPY Ventilator Normal [facility] Comment on above: Order Comment: Speci men Type: BLOOD SPECIMEN Ordering Facility: [facility] Address: [address] [place] [address] Performed By: #### 5 5454-3 #### [facility] CLIA [id number] [address] [place] [address] [place] #### 80961-7 #### [facility] CLIA [id number] [address] [place] [address] [place] Oxygen (Bld) [Partial pressure] 150 mm Hg High 85-95 [facility] Comment on above: Order Comment: Speci men Type: BLOOD SPECIMEN Ordering Facility: [facility] Address: [address] [place] [address] Performed By: #### 5 5454-3 #### [facility] CLIA [id number] [address] [place] [address] [place] #### 18705-8 #### [facility] CLIA [id number] [address] [place] [address] [place] Oxyhemoglobin (BldA) [Mass fraction] 97 % Normal 95-98 [facility] Comment on above: Order Comment: Speci men Type: BLOOD SPECIMEN Ordering Facility: [facility] Address: [address] [place] [address] Performed By: #### 5 5454-3 #### [facility] CLIA [id number] [address] [place] [address] [place] #### 44752-1 #### [facility] CLIA [id number] [address] [place] [address] [place] PEEP/CPAP [address] [facility] Comment on above: Order Comment: Speci men Type: BLOOD SPECIMEN Ordering Facility: [facility] Address: [address] [place] [address] Performed By: #### 5 5454-3 #### [facility] CLIA [id number] [address] [place] [address] [place] #### 48568-4 #### [facility] CLIA [id number] [address] [place] [address] [place] pH (Bld) 7.26 [pH] Low 7.35-7.45 [facility] Comment on above: Order Comment: Speci men Type: BLOOD SPECIMEN Ordering Facility: [facility] Address: [address] [place] [address] Performed By: #### 5 5454-3 #### [facility] CLIA [id number] [address] [place] [address] [place] #### 65533-6 #### [facility] CLIA [id number] [address] [place] [address] [place] PO2 / FIO2 RATIO 150 mmHg Low >300 [facility] Comment on above: Order Comment: Speci men Type: BLOOD SPECIMEN Ordering Facility: [facility] Address: [address] [place] [address] Performed By: #### 5 5454-3 #### [facility] CLIA [id number] [address] [place] [address] [place] #### 25798-8 #### [facility] CLIA [id number] [address] [place] [address] [place] Potassium [Moles/Vol] 4.1 mmol/L Normal 2.5-6.0 [facility] Comment on above: Order Comment: Speci men Type: BLOOD SPECIMEN Ordering Facility: [facility] Address: [address] [place] [address] Performed By: #### 5 5454-3 #### [facility] CLIA [id number] [address] [place] [address] [place] #### 64135-0 #### [facility] CLIA [id number] [address] [place] [address] [place] SET VENTILATOR RESPIRATORY RATE (BPM) [address] [facility] Comment on above: Order Comment: Speci men Type: BLOOD SPECIMEN Ordering Facility: [facility] Address: [address] [place] [address] Performed By: #### 5 5454-3 #### [facility] CLIA [id number] [address] [place] [address] [place] #### 28971-1 #### [facility] CLIA [id number] [address] [place] [address] [place] Sodium [Moles/Vol] 136 mmol/L Normal 136-144 [facility] Comment on above: Order Comment: Speci men Type: BLOOD SPECIMEN Ordering Facility: [facility] Address: [address] [place] [address] Performed By: #### 5 5454-3 #### [facility] CLIA [id number] [address] [place] [address] [place] #### 65133-8 #### [facility] CLIA [id number] [address] [place] [address] [place] Ammonia Plas-sCncon 02-07-20 24 Ammonia (P) [Moles/Vol] 94 umol/L High 11-32 [facility] Comment on above: Order Comment: Speci men Type: BLOOD SPECIMEN Ordering Facility: [facility] Address: [address] [place] [address] Result Comment: Resu lts may be falsely depressed after the administration of Sulfapyridine. Results may be falsely elevated after the administration of Sulfasalazine. Performed By: #### 5 5454-3 #### [facility] CLIA [id number] [address] [place] [address] [place] #### 29558-9 #### [facility] CLIA [id number] [address] [place] [address] [place] Bas Metab 2000 Pnl SerPlon 0 02-07-2024 Anion gap [Moles/Vol] 12 mmol/L Normal 5-16 [facility] Comment on above: Order Comment: Speci men Type: BLOOD SPECIMEN Ordering Facility: [facility] Address: [address] [place] [address] Performed By: #### L [id number], 47394-2 #### [facility] CLIA [id number] [address] [place] [address] [place] Calcium [Mass/Vol] 8.3 mg/dL Low 8.5-10.5 [facility] Comment on above: Order Comment: Speci men Type: BLOOD SPECIMEN Ordering Facility: [facility] Address: [address] [place] [address] Performed By: #### L LE3773, 99212-1 #### [facility] CLIA [id number] [address] [place] [address] [place] Chloride [Moles/Vol] 107 mmol/L Normal 98-107 [facility] Comment on above: Order Comment: Speci men Type: BLOOD SPECIMEN Ordering Facility: [facility] Address: [address] [place] [address] Performed By: #### L QZ1653, 67152-4 #### [facility] CLIA [id number] [address] [place] [address] [place] CO2 [Moles/Vol] 19 mmol/L Low 21-32 [facility] Comment on above: Order Comment: Speci men Type: BLOOD SPECIMEN Ordering Facility: [facility] Address: [address] [place] [address] Performed By: #### L [id number], 93247-0 #### [facility] CLIA [id number] [address] [place] [address] [place] Creatinine [Mass/Vol] 0.89 mg/dL Normal 0.50-1.40 [facility] Comment on above: Order Comment: Speci men Type: BLOOD SPECIMEN Ordering Facility: [facility] Address: [address] [place] [address] Result Comment: Desiree ents receiving either N-Acetylcysteine (NAC) or Metamizole prior to venipuncture, may have falsely depressed results. Performed By: #### L TM8149, 91405-3 #### [facility] CLIA [id number] [address] [place] [address] Creatinine and Glomerular filtration rate.predicted panel (S/P/Bld) 108 mL/min/1.73m??? Normal >=60 [facility] Comment on above: Order Comment: Speci men Type: BLOOD SPECIMEN Ordering Facility: [facility] Address: [address] [place] [address] Result Comment: Rosanna mated Glomerular Filtration Rate (eGFR) is calculated using the 2020 CKD-EPI creatinine equation. This equation utilizes serum creatinine, sex, and age as parameters. The creatinine assay has traceable calibration to isotope dilution-mass spectrometry. Refer to KDIGO guidelines for clinical interpretation. In patients with unstable renal function, e.g. those with acute kidney injury, the eGFR may not accurately reflect actual GFR. Estimated Glomerular Filtration Rate (eGFR) is calculated using the 2020 CKD-EPI creatinine equation. This equation utilizes serum creatinine, sex, and age as parameters. The creatinine assay has traceable calibration to isotope dilution-mass spectrometry. Refer to KDIGO guidelines for clinical interpretation. In patients with unstable renal function, e.g. those with acute kidney injury, the eGFR may not accurately reflect actual GFR. Performed By: #### L XL6254, 60883-6 #### [facility] CLIA [id number] [address] [place] [address] [place] Result Comment: Rosanna mated Glomerular Filtration Rate (eGFR) is calculated using the 2020 CKD-EPI creatinine equation. This equation utilizes serum creatinine, sex, and age as parameters. The creatinine assay has traceable calibration to isotope dilution-mass spectrometry. Refer to KDIGO guidelines for clinical interpretation. In patients with unstable renal function, e.g. those with acute kidney injury, the eGFR may not accurately reflect actual GFR. Glucose [Mass/Vol] 175 mg/dL High 70-100 [facility] Comment on above: Order Comment: Delfinai men Type: BLOOD SPECIMEN Ordering Facility: [facility] Address: [address] [place] [id number] Result Comment: The [place] [employer] (ADA) provides guidance for cutoff values for fasting glucose and random glucose. The ADA defines fasting as no caloric intake for at least 8 hours. Fasting plasma glucose results between 100 to 125 mg/dL indicate increased risk for diabetes (prediabetes). Fasting plasma glucose results greater than or equal to 126 mg/dL meet the criteria for diagnosis of diabetes. In the absence of unequivocal hyperglycemia, results should be confirmed by repeat testing. In a patient with classic symptoms of hyperglycemia or hyperglycemic crisis, random plasma glucose results greater than or equal to 200 mg/dL meet the criteria for diagnosis of diabetes. Reference: Standards of Medical Care in Diabetes 2016, [place] [employer]. Diabetes Care. 2016.39(Suppl 1). Results may be falsely elevated after the administration of Sulfapyridine. Results may be falsely depressed after the administration of Sulfasalazine. Performed By: #### L TL5113, 64239-6 #### [facility] CLIA [id number] [address] [place] [address] [place] Potassium [Moles/Vol] 3.5 mmol/L Normal 3.5-5.1 [facility] Comment on above: Order Comment: Speci men Type: BLOOD SPECIMEN Ordering Facility: [facility] Address: [address] [place] [address] Performed By: #### L MK5003, 55680-5 #### [facility] CLIA [id number] [address] [place] [address] [place] Sodium [Moles/Vol] 138 mmol/L Normal 136-145 [facility] Comment on above: Order Comment: Speci men Type: BLOOD SPECIMEN Ordering Facility: [facility] Address: [address] [place] [address] Performed By: #### L QL5974, 04495-8 #### [facility] CLIA [id number] [address] [place] [address] [place] Urea nitrogen [Mass/Vol] 12 mg/dL Normal 7-26 [facility] Comment on above: Order Comment: Speci men Type: BLOOD SPECIMEN Ordering Facility: [facility] Address: [address] [place] [address] Performed By: #### L SB7801, 87583-3 #### [facility] CLIA [id number] [address] [place] [address] [place] Anion gap [Moles/Vol] 21 mmol/L High 5-16 [facility] Comment on above: Order Comment: Speci men Type: BLOOD SPECIMEN Ordering Facility: [facility] Address: [facility] [place] [address] Performed By: #### 5 5454-3 #### [facility] CLIA [id number] [address] [place] [address] [place] #### 29564-8 #### [facility] CLIA [id number] [address] [place] [address] [place] Calcium [Mass/Vol] 8.3 mg/dL Low 8.5-10.5 [facility] Comment on above: Order Comment: Speci men Type: BLOOD SPECIMEN Ordering Facility: [facility] Address: [address] [place] [address] Performed By: #### 5 5454-3 #### [facility] CLIA [id number] [address] [place] [address] [place] #### 08106-6 #### [facility] CLIA [id number] [address] [place] [address] [place] Chloride [Moles/Vol] 104 mmol/L Normal 98-107 [facility] Comment on above: Order Comment: Speci men Type: BLOOD SPECIMEN Ordering Facility: [facility] Address: [address] [place] [address] Performed By: #### 5 5454-3 #### [facility] CLIA [id number] [address] [place] [address] [place] #### 74679-2 #### [facility] CLIA [id number] [address] [place] [address] [place] CO2 [Moles/Vol] 11 mmol/L Low 21-32 [facility] Comment on above: Order Comment: Moses burton Type: BLOOD SPECIMEN Ordering Facility: [facility] Address: [address] [place] [address] Performed By: #### 5 5454-3 #### [facility] CLIA [id number] [address] [place] [address] [place] #### 26771-4 #### [facility] CLIA [id number] [address] [place] [address] [place] Creatinine [Mass/Vol] 1.03 mg/dL Normal 0.50-1.40 [facility] Comment on above: Order Comment: Moses burton Type: BLOOD SPECIMEN Ordering Facility: [facility] Address: [address] [place] [address] Result Comment: Desiree ents receiving either N-Acetylcysteine (NAC) or Metamizole prior to venipuncture, may have falsely depressed results. Performed By: #### 5 5454-3 #### [facility] CLIA [id number] [address] [place] [address] [place] #### 24132-5 #### [facility] CLIA [id number] [address] [place] [address] [place] Creatinine and Glomerular filtration rate.predicted panel (S/P/Bld) 92 mL/min/1.73m??? Normal >=60 [facility] Comment on above: Order Comment: Moses burton Type: BLOOD SPECIMEN Ordering Facility: [facility] Address: [address] [place] [address] Result Comment: Rosanna mated Glomerular Filtration Rate (eGFR) is calculated using the 2020 CKD-EPI creatinine equation. This equation utilizes serum creatinine, sex, and age as parameters. The creatinine assay has traceable calibration to isotope dilution-mass spectrometry. Refer to KDIGO guidelines for clinical interpretation. In patients with unstable renal function, e.g. those with acute kidney injury, the eGFR may not accurately reflect actual GFR. Estimated Glomerular Filtration Rate (eGFR) is calculated using the 2020 CKD-EPI creatinine equation. This equation utilizes serum creatinine, sex, and age as parameters. The creatinine assay has traceable calibration to isotope dilution-mass spectrometry. Refer to KDIGO guidelines for clinical interpretation. In patients with unstable renal function, e.g. those with acute kidney injury, the eGFR may not accurately reflect actual GFR. Performed By: #### 5 5454-3 #### [facility] CLIA [id number] [address] [place], [place] [address] [address] #### 36564-0 #### [facility] CLIA [id number] [address] [place] Result Comment: Rosanna mated Glomerular Filtration Rate (eGFR) is calculated using the 2020 CKD-EPI creatinine equation. This equation utilizes serum creatinine, sex, and age as parameters. The creatinine assay has traceable calibration to isotope dilution-mass spectrometry. Refer to KDIGO guidelines for clinical interpretation. In patients with unstable renal function, e.g. those with acute kidney injury, the eGFR may not accurately reflect actual GFR. Glucose [Mass/Vol] 340 mg/dL High 70-100 [facility] Comment on above: Order Comment: Speci men Type: BLOOD SPECIMEN Ordering Facility: [facility] Address: [address] [place] [address] Result Comment: The [place] Diabetes [employer] (ADA) provides guidance for cutoff values for fasting glucose and random glucose. The ADA defines fasting as no caloric intake for at least 8 hours. Fasting plasma glucose results between 100 to 125 mg/dL indicate increased risk for diabetes (prediabetes). Fasting plasma glucose results greater than or equal to 126 mg/dL meet the criteria for diagnosis of diabetes. In the absence of unequivocal hyperglycemia, results should be confirmed by repeat testing. In a patient with classic symptoms of hyperglycemia or hyperglycemic crisis, random plasma glucose results greater than or equal to 200 mg/dL meet the criteria for diagnosis of diabetes. Reference: Standards of Medical Care in Diabetes 2016, [place] [employer]. Diabetes Care. 2016.39(Suppl 1). Results may be falsely elevated after the administration of Sulfapyridine. Results may be falsely depressed after the administration of Sulfasalazine. Performed By: #### 5 5454-3 #### [facility] CLIA [id number] [address] [place] [address] [place] #### 20945-8 #### [facility] CLIA [id number] [address] [place] [address] [place] Potassium [Moles/Vol] 3.8 mmol/L Normal 3.5-5.1 [facility] Comment on above: Order Comment: Speci men Type: BLOOD SPECIMEN Ordering Facility: [facility] Address: [address] [place] [address] Performed By: #### 5 5454-3 #### [facility] CLIA [id number] [address] [place] [address] [place] #### 68785-5 #### [facility] CLIA [id number] [address] [place] [address] [place] Sodium [Moles/Vol] 136 mmol/L Normal 136-145 [facility] Comment on above: Order Comment: Speci men Type: BLOOD SPECIMEN Ordering Facility: [facility] Address: [address] [place] [address] Performed By: #### 5 5454-3 #### [facility] CLIA [id number] [address] [place] [address] [place] #### 34199-4 #### [facility] CLIA [id number] [address] [place] [address] [place] Urea nitrogen [Mass/Vol] 14 mg/dL Normal 7-26 [facility] Comment on above: Order Comment: Speci men Type: BLOOD SPECIMEN Ordering Facility: [facility] Address: [address] [place] [address] Performed By: #### 5 5454-3 #### [facility] CLIA [id number] [address] [place] [address] [place] #### 07788-9 #### [facility] CLIA [id number] [address] [place] [address] [place] Basic metabolic 2000 panelon 02-07-2024 Anion gap [Moles/Vol] 10 mmol/L Normal 5-16 [facility] Comment on above: Order Comment: Speci men Type: BLOOD SPECIMEN Ordering Facility: [facility] Address: [address] [place] [address] Performed By: #### B HB, , #### [facility] CLIA [id number] [address] [place], [place] [address] [place] Calcium [Mass/Vol] 8.0 mg/dL Low 8.5-10.5 [facility] Comment on above: Order Comment: Speci men Type: BLOOD SPECIMEN Ordering Facility: [facility] Address: [address] [place] [address] Performed By: #### B HB, , #### [facility] CLIA [id number] [address] [place] [address] [place] Chloride [Moles/Vol] 107 mmol/L Normal 98-107 [facility] Comment on above: Order Comment: Speci men Type: BLOOD SPECIMEN Ordering Facility: [facility] Address: [address] [place] [address] Performed By: #### B HB, , #### [facility] CLIA [id number] [address] [place], [place] [address] [place] CO2 [Moles/Vol] 22 mmol/L Normal 21-32 [facility] Comment on above: Order Comment: Speci men Type: BLOOD SPECIMEN Ordering Facility: [facility] Address: [address] [place] [address] Performed By: #### B HB, , #### [facility] CLIA [id number] [address] [place] [address] [place] Creatinine [Mass/Vol] 0.89 mg/dL Normal 0.50-1.40 [facility] Comment on above: Order Comment: Moses burton Type: BLOOD SPECIMEN Ordering Facility: [facility] Address: [address] [place] [address] Result Comment: Desiree ents receiving either N-Acetylcysteine (NAC) or Metamizole prior to venipuncture, may have falsely depressed results. Performed By: #### B HB, , #### [facility] CLIA [id number] [address] [place] [address] [place] Creatinine and Glomerular filtration rate.predicted panel (S/P/Bld) 108 mL/min/1.73m??? Normal >=60 [facility] Comment on above: Order Comment: Moses burton Type: BLOOD SPECIMEN Ordering Facility: [facility] Address: [address] [place] [address] Result Comment: Rosanna mated Glomerular Filtration Rate (eGFR) is calculated using the 2020 CKD-EPI creatinine equation. This equation utilizes serum creatinine, sex, and age as parameters. The creatinine assay has traceable calibration to isotope dilution-mass spectrometry. Refer to KDIGO guidelines for clinical interpretation. In patients with unstable renal function, e.g. those with acute kidney injury, the eGFR may not accurately reflect actual GFR. Performed By: #### B HB, , #### [facility] CLIA [id number] [address] [place] [address] [place] Glucose [Mass/Vol] 219 mg/dL High 70-100 [facility] Comment on above: Order Comment: Moses burton Type: BLOOD SPECIMEN Ordering Facility: [facility] Address: [address] [place] [address] Result Comment: The [place] [employer] (ADA) provides guidance for cutoff values for fasting glucose and random glucose. The ADA defines fasting as no caloric intake for at least 8 hours. Fasting plasma glucose results between 100 to 125 mg/dL indicate increased risk for diabetes (prediabetes). Fasting plasma glucose results greater than or equal to 126 mg/dL meet the criteria for diagnosis of diabetes. In the absence of unequivocal hyperglycemia, results should be confirmed by repeat testing. In a patient with classic symptoms of hyperglycemia or hyperglycemic crisis, random plasma glucose results greater than or equal to 200 mg/dL meet the criteria for diagnosis of diabetes. Reference: Standards of Medical Care in Diabetes 2016, [place] [employer]. Diabetes Care. 2016.39(Suppl 1). Results may be falsely elevated after the administration of Sulfapyridine. Results may be falsely depressed after the administration of Sulfasalazine. Performed By: #### B HB, , #### [facility] CLIA [id number] [address] [place] [address] [place] Potassium [Moles/Vol] 4.2 mmol/L Normal 3.5-5.1 [facility] Comment on above: Order Comment: Delfinai josephine Type: BLOOD SPECIMEN Ordering Facility: [facility] Address: [address] [place] [address] Performed By: #### B HB, , #### [facility] CLIA [id number] [address] [place] [address] [place] Sodium [Moles/Vol] 139 mmol/L Normal 136-145 [facility] Comment on above: Order Comment: Delfinai josephine Type: BLOOD SPECIMEN Ordering Facility: [facility] Address: [address] [place] [address] Performed By: #### B HB, , #### [facility] CLIA [id number] [address] [place] [address] [place] Urea nitrogen [Mass/Vol] 12 mg/dL Normal 7-26 [facility] Comment on above: Order Comment: Speci men Type: BLOOD SPECIMEN Ordering Facility: [facility] Address: [address] [place] [place] [id number] Performed By: #### B HB, , #### [facility] CLIA [id number] [address] [place] [address] [place] Anion gap [Moles/Vol] 13 mmol/L Normal 5-16 [facility] Comment on above: Order Comment: Speci men Type: BLOOD SPECIMEN Ordering Facility: [facility] Address: [address] [place] [address] Performed By: #### L [id number], 42726-1 #### [facility] CLIA [id number] [address] [place] [address] [place] Calcium [Mass/Vol] 8.3 mg/dL Low 8.5-10.5 [facility] Comment on above: Order Comment: Speci men Type: BLOOD SPECIMEN Ordering Facility: [facility] Address: [address] [place] [address] Performed By: #### L [id number], 15192-8 #### [facility] CLIA [id number] [address] [place] [address] [place] Chloride [Moles/Vol] 108 mmol/L High 98-107 [facility] Comment on above: Order Comment: Speci men Type: BLOOD SPECIMEN Ordering Facility: [facility] Address: [address] [place] [address] Performed By: #### L [id number], 81972-5 #### [facility] CLIA [id number] [address] [place] [address] [place] CO2 [Moles/Vol] 20 mmol/L Low 21-32 [facility] Comment on above: Order Comment: Speci men Type: BLOOD SPECIMEN Ordering Facility: [facility] Address: [address] [place] [address] Performed By: #### L [id number], 93293-6 #### [facility] CLIA [id number] [address] [place] [address] [place] Creatinine [Mass/Vol] 0.88 mg/dL Normal 0.50-1.40 [facility] Comment on above: Order Comment: Speci men Type: BLOOD SPECIMEN Ordering Facility: [facility] Address: [address] [place] [address] Result Comment: Desiree ents receiving either N-Acetylcysteine (NAC) or Metamizole prior to venipuncture, may have falsely depressed results. Performed By: #### L [id number], 81508-8 #### [facility] CLIA [id number] [address] [place] [address] [place] Creatinine and Glomerular filtration rate.predicted panel (S/P/Bld) 109 mL/min/1.73m??? Normal >=60 [facility] Comment on above: Order Comment: Moses burton Type: BLOOD SPECIMEN Ordering Facility: [facility] Address: [address] [place] [address] Result Comment: Rosanna mated Glomerular Filtration Rate (eGFR) is calculated using the 2020 CKD-EPI creatinine equation. This equation utilizes serum creatinine, sex, and age as parameters. The creatinine assay has traceable calibration to isotope dilution-mass spectrometry. Refer to KDIGO guidelines for clinical interpretation. In patients with unstable renal function, e.g. those with acute kidney injury, the eGFR may not accurately reflect actual GFR. Performed By: #### L [id number], 66064-9 #### [facility] CLIA [id number] [address] [place] [address] [place] Glucose [Mass/Vol] 251 mg/dL High 70-100 [facility] Comment on above: Order Comment: Moses burton Type: BLOOD SPECIMEN Ordering Facility: [facility] Address: [address] [place] [address] Result Comment: The [place] Diabetes Association (ADA) provides guidance for cutoff values for fasting glucose and random glucose. The ADA defines fasting as no caloric intake for at least 8 hours. Fasting plasma glucose results between 100 to 125 mg/dL indicate increased risk for diabetes (prediabetes). Fasting plasma glucose results greater than or equal to 126 mg/dL meet the criteria for diagnosis of diabetes. In the absence of unequivocal hyperglycemia, results should be confirmed by repeat testing. In a patient with classic symptoms of hyperglycemia or hyperglycemic crisis, random plasma glucose results greater than or equal to 200 mg/dL meet the criteria for diagnosis of diabetes. Reference: Standards of Medical Care in Diabetes 2016, [place] [employer]. Diabetes Care. 2016.39(Suppl 1). Results may be falsely elevated after the administration of Sulfapyridine. Results may be falsely depressed after the administration of Sulfasalazine. Performed By: #### L [id number], 49202-5 #### [facility] CLIA [id number] [address] [place] [address] [place] Potassium [Moles/Vol] 4.6 mmol/L Normal 3.5-5.1 [facility] Comment on above: Order Comment: Speci men Type: BLOOD SPECIMEN Ordering Facility: [facility] Address: [address] [place] [address] Performed By: #### L [id number], 98837-7 #### [facility] CLIA [id number] [address] [place] [address] [place] Sodium [Moles/Vol] 141 mmol/L Normal 136-145 [facility] Comment on above: Order Comment: Speci men Type: BLOOD SPECIMEN Ordering Facility: [facility] Address: [address] [place] [address] Performed By: #### L [id number], 91302-4 #### [facility] CLIA [id number] [address] [place] [address] [place] Urea nitrogen [Mass/Vol] 13 mg/dL Normal 7-26 [facility] Comment on above: Order Comment: Speci men Type: BLOOD SPECIMEN Ordering Facility: [facility] Address: [address] [place] [address] Performed By: #### L [id number], 04670-4 #### [facility] CLIA [id number] [address] [place] [address] [place] Anion gap [Moles/Vol] 10 mmol/L Normal 5-16 [facility] Comment on above: Order Comment: Speci men Type: BLOOD SPECIMEN Ordering Facility: [facility] Address: [address] [place] [address] Performed By: #### L [id number], 67000-9 #### [facility] CLIA [id number] [address] [place] [address] [place] Calcium [Mass/Vol] 9.1 mg/dL Normal 8.5-10.5 [facility] Comment on above: Order Comment: Speci men Type: BLOOD SPECIMEN Ordering Facility: [facility] Address: [address] [place] [address] Performed By: #### L CH1974, 55401-1 #### [facility] CLIA [id number] [address] [place] [address] [place] Chloride [Moles/Vol] 108 mmol/L High 98-107 [facility] Comment on above: Order Comment: Speci men Type: BLOOD SPECIMEN Ordering Facility: [facility] Address: [address] [place] [address] Performed By: #### L [id number], 20938-7 #### [facility] CLIA [id number] [address] [place] [address] [place] CO2 [Moles/Vol] 24 mmol/L Normal 21-32 [facility] Comment on above: Order Comment: Speci men Type: BLOOD SPECIMEN Ordering Facility: [facility] Address: [address] [place] [address] Performed By: #### L [id number], 81207-4 #### [facility] CLIA [id number] [address] [place] [address] [place] Creatinine [Mass/Vol] 0.91 mg/dL Normal 0.50-1.40 [facility] Comment on above: Order Comment: Speci men Type: BLOOD SPECIMEN Ordering Facility: [facility] Address: [address] [place] [address] Result Comment: Desiree ents receiving either N-Acetylcysteine (NAC) or Metamizole prior to venipuncture, may have falsely depressed results. Performed By: #### L [id number], 69733-4 #### [facility] CLIA [id number] [address] [place] [address] [place] Creatinine and Glomerular filtration rate.predicted panel (S/P/Bld) 107 mL/min/1.73m??? Normal >=60 [facility] Comment on above: Order Comment: Speci men Type: BLOOD SPECIMEN Ordering Facility: [facility] Address: [address] [place] [address] Result Comment: Rosanna mated Glomerular Filtration Rate (eGFR) is calculated using the 2020 CKD-EPI creatinine equation. This equation utilizes serum creatinine, sex, and age as parameters. The creatinine assay has traceable calibration to isotope dilution-mass spectrometry. Refer to KDIGO guidelines for clinical interpretation. In patients with unstable renal function, e.g. those with acute kidney injury, the eGFR may not accurately reflect actual GFR. Performed By: #### L [id number], 42689-5 #### [facility] CLIA [id number] [address] [place] [address] [place] Glucose [Mass/Vol] 133 mg/dL High 70-100 [facility] Comment on above: Order Comment: Moses burton Type: BLOOD SPECIMEN Ordering Facility: [facility] Address: [address] [place] [address] Result Comment: The [place] Diabetes [employer] (ADA) provides guidance for cutoff values for fasting glucose and random glucose. The ADA defines fasting as no caloric intake for at least 8 hours. Fasting plasma glucose results between 100 to 125 mg/dL indicate increased risk for diabetes (prediabetes). Fasting plasma glucose results greater than or equal to 126 mg/dL meet the criteria for diagnosis of diabetes. In the absence of unequivocal hyperglycemia, results should be confirmed by repeat testing. In a patient with classic symptoms of hyperglycemia or hyperglycemic crisis, random plasma glucose results greater than or equal to 200 mg/dL meet the criteria for diagnosis of diabetes. Reference: Standards of Medical Care in Diabetes 2016, [place] [employer]. Diabetes Care. 2016.39(Suppl 1). Results may be falsely elevated after the administration of Sulfapyridine. Results may be falsely depressed after the administration of Sulfasalazine. Performed By: #### L [id number], 82173-9 #### [facility] CLIA [id number] [address] [place] [address] [place] Potassium [Moles/Vol] 4.3 mmol/L Normal 3.5-5.1 [facility] Comment on above: Order Comment: Moses burton Type: BLOOD SPECIMEN Ordering Facility: [facility] Address: [address] [place] [address] Performed By: #### L [id number], 31045-0 #### [facility] CLIA [id number] [address] [place] [address] [place] Sodium [Moles/Vol] 142 mmol/L Normal 136-145 [facility] Comment on above: Order Comment: Speci men Type: BLOOD SPECIMEN Ordering Facility: [facility] Address: [address] [place] [address] Performed By: #### L [id number], 39678-3 #### [facility] CLIA [id number] [address] [place] [address] [place] Urea nitrogen [Mass/Vol] 10 mg/dL Normal 7-26 [facility] Comment on above: Order Comment: Speci men Type: BLOOD SPECIMEN Ordering Facility: [facility] Address: [address] [place] [address] Performed By: #### L [id number], 82588-6 #### [facility] CLIA [id number] [address] [place] [address] [place] Anion gap [Moles/Vol] 29 mmol/L High 5-16 [facility] Comment on above: Order Comment: Speci men Type: BLOOD SPECIMEN Ordering Facility: [facility] Address: [address] [place] [address] Performed By: #### 5 5454-3 #### [facility] CLIA [id number] [address] [place] [address] [place] #### 29547-3 #### [facility] CLIA [id number] [address] [place] [address] [place] Calcium [Mass/Vol] 8.6 mg/dL Normal 8.5-10.5 [facility] Comment on above: Order Comment: Speci men Type: BLOOD SPECIMEN Ordering Facility: [facility] Address: [address] [place] [address] Performed By: #### 5 5454-3 #### [facility] CLIA [id number] [address] [place] [address] [place] #### 22613-1 #### [facility] CLIA [id number] [address] [place] [address] [place] Chloride [Moles/Vol] 101 mmol/L Normal 98-107 [facility] Comment on above: Order Comment: Speci men Type: BLOOD SPECIMEN Ordering Facility: [facility] Address: [address] [place] [address] Performed By: #### 5 5454-3 #### [facility] CLIA [id number] [address] [place] [address] [place] #### 16132-0 #### [facility] CLIA [id number] [address] [place] [address] [place] CO2 [Moles/Vol] 3 mmol/L Low 21-32 [facility] Comment on above: Order Comment: Speci men Type: BLOOD SPECIMEN Ordering Facility: [facility] Address: [address] [place] [address] Performed By: #### 5 5454-3 #### [facility] CLIA [id number] [address] [place] [address] [place] #### 34252-6 #### [facility] CLIA [id number] [address] [place] [address] [place] Creatinine [Mass/Vol] 1.12 mg/dL Normal 0.50-1.40 [facility] Comment on above: Order Comment: Speci men Type: BLOOD SPECIMEN Ordering Facility: [facility] Address: [address] [place] [address] Result Comment: Desiree ents receiving either N-Acetylcysteine (NAC) or Metamizole prior to venipuncture, may have falsely depressed results. Performed By: #### 5 5454-3 #### [facility] CLIA [id number] [address] [place] [address] [place] #### 12773-0 #### [facility] CLIA [id number] [address] [place] [address] [place] Creatinine and Glomerular filtration rate.predicted panel (S/P/Bld) 83 mL/min/1.73m??? Normal >=60 [facility] Comment on above: Order Comment: Moses burton Type: BLOOD SPECIMEN Ordering Facility: [facility] Address: [address] [place] [address] Result Comment: Rosanna mated Glomerular Filtration Rate (eGFR) is calculated using the 2020 CKD-EPI creatinine equation. This equation utilizes serum creatinine, sex, and age as parameters. The creatinine assay has traceable calibration to isotope dilution-mass spectrometry. Refer to KDIGO guidelines for clinical interpretation. In patients with unstable renal function, e.g. those with acute kidney injury, the eGFR may not accurately reflect actual GFR. Performed By: #### 5 5454-3 #### [facility] CLIA [id number] [address] [place], [place] [address] [address] [place] #### 81986-5 #### [facility] CLIA [id number] [address] [place] [address] [place] Glucose [Mass/Vol] 447 mg/dL High 70-100 [facility] Comment on above: Order Comment: Moses burton Type: BLOOD SPECIMEN Ordering Facility: [facility] Address: [address] [place] [address] Result Comment: The [place] Diabetes Association (ADA) provides guidance for cutoff values for fasting glucose and random glucose. The ADA defines fasting as no caloric intake for at least 8 hours. Fasting plasma glucose results between 100 to 125 mg/dL indicate increased risk for diabetes (prediabetes). Fasting plasma glucose results greater than or equal to 126 mg/dL meet the criteria for diagnosis of diabetes. In the absence of unequivocal hyperglycemia, results should be confirmed by repeat testing. In a patient with classic symptoms of hyperglycemia or hyperglycemic crisis, random plasma glucose results greater than or equal to 200 mg/dL meet the criteria for diagnosis of diabetes. Reference: Standards of Medical Care in Diabetes 2016, [place] [employer]. Diabetes Care. 2016.39(Suppl 1). Results may be falsely elevated after the administration of Sulfapyridine. Results may be falsely depressed after the administration of Sulfasalazine. Performed By: #### 5 5454-3 #### [facility] CLIA [id number] [address] [place] [address] [place] #### 26891-8 #### [facility] CLIA [id number] [address] [place] [address] [place] Potassium [Moles/Vol] Normal [facility] Comment on above: Order Comment: Speci men Type: BLOOD SPECIMEN Ordering Facility: [facility] Address: [address] [place] [address] Result Comment: Unab le to assay due to interference from hemolysis. Suggest reorder as clinically indicated. &XA&NOTIFIED MVIKI. Performed By: #### 5 5454-3 #### [facility] CLIA [id number] [address] [place] [address] [place] #### 63701-6 #### [facility] CLIA [id number] [address] [place] [address] [place] Sodium [Moles/Vol] 133 mmol/L Low 136-145 [facility] Comment on above: Order Comment: Speci men Type: BLOOD SPECIMEN Ordering Facility: [facility] Address: [address] [place] [address] Performed By: #### 5 5454-3 #### [facility] CLIA [id number] [address] [place] [address] [place] #### 37220-5 #### [facility] CLIA [id number] [address] [place] [address] [place] Urea nitrogen [Mass/Vol] 12 mg/dL Normal 7-26 [facility] Comment on above: Order Comment: Speci men Type: BLOOD SPECIMEN Ordering Facility: [facility] Address: [address] [place] [address] Performed By: #### 5 5454-3 #### [facility] CLIA [id number] [address] [place] [address] [place] #### 96959-3 #### [facility] CLIA [id number] [address] [place] [address] [place] CBC W Auto Differential pane l (Bld)on 02-07-2024 Basophils (Bld) [#/Vol] 0.03 10*3/uL Normal <0.11 [facility] Comment on above: Order Comment: Speci men Type: VENOUS BLOOD SPECIMEN Ordering Facility: [facility] Address: [address] [place] [address] Performed By: #### 2 4344-4 #### [facility] CLIA [id number] [address] [place] [address] Basophils/100 WBC (Bld) 0.3 % Normal [facility] Comment on above: Order Comment: Speci men Type: VENOUS BLOOD SPECIMEN Ordering Facility: [facility] Address: [address] [place] [address] Performed By: #### 2 4344-4 #### [facility] CLIA [id number] [address] [place] [address] Differential cell count method Nom (Bld) Auto Normal [facility] Comment on above: Order Comment: Speci men Type: VENOUS BLOOD SPECIMEN Ordering Facility: [facility] Address: [address] [place] [address] Performed By: #### 2 4344-4 #### [facility] CLIA [id number] [address] [place] [address] [place] Eosinophils (Bld) [#/Vol] 0.03 10*3/uL Normal <0.46 [facility] Comment on above: Order Comment: Speci men Type: VENOUS BLOOD SPECIMEN Ordering Facility: [facility] Address: [address] [place] [address] Performed By: #### 2 4344-4 #### [facility] CLIA [id number] [address] [place] [address] [place] Eosinophils/100 WBC (Bld) 0.3 % Normal [facility] Comment on above: Order Comment: Speci men Type: VENOUS BLOOD SPECIMEN Ordering Facility: [facility] Address: [address] [place] [address] Performed By: #### 2 4344-4 #### [facility] CLIA [id number] [address] [place] [address] [place] Erythrocyte distribution width (RBC) [Ratio] 14.6 % Normal 11.5-15.0 [facility] Comment on above: Order Comment: Speci men Type: VENOUS BLOOD SPECIMEN Ordering Facility: [facility] Address: [address] [place] [address] Performed By: #### 2 4344-4 #### [facility] CLIA [id number] [address] [place] [address] [place] Hematocrit (Bld) [Volume fraction] 32.7 % Low 39.0-51.0 [facility] Comment on above: Order Comment: Speci men Type: VENOUS BLOOD SPECIMEN Ordering Facility: [facility] Address: [address] [place] [address] Performed By: #### 2 4344-4 #### [facility] CLIA [id number] [address] [place] [address] [place] Hemoglobin (Bld) [Mass/Vol] 11.4 g/dL Low 13.0-17.0 [facility] Comment on above: Order Comment: Speci men Type: VENOUS BLOOD SPECIMEN Ordering Facility: [facility] Address: [address] [place] [address] Performed By: #### 2 4344-4 #### [facility] CLIA [id number] [address] [place] [address] [place] Immature granulocytes (Bld) [#/Vol] 0.08 10*3/uL Normal <0.10 [facility] Comment on above: Order Comment: Speci men Type: VENOUS BLOOD SPECIMEN Ordering Facility: [facility] Address: [address] [place] [address] Performed By: #### 2 4344-4 #### [facility] CLIA [id number] [address] [place] [address] OF [place] Immature granulocytes/100 WBC (Bld) 0.8 % Normal [facility] Comment on above: Order Comment: Speci men Type: VENOUS BLOOD SPECIMEN Ordering Facility: [facility] Address: [address] [place] [address] Performed By: #### 2 4344-4 #### [facility] CLIA [id number] [address] [place] [address] [place] Lymphocytes (Bld) [#/Vol] 1.41 10*3/uL Normal 1.00-4.00 [facility] Comment on above: Order Comment: Speci men Type: VENOUS BLOOD SPECIMEN Ordering Facility: [facility] Address: [address] [place] [address] Performed By: #### 2 4344-4 #### [facility] CLIA [id number] [address] [place] [address] OF [place] Lymphocytes/100 WBC (Bld) 14.4 % Normal [facility] Comment on above: Order Comment: Speci men Type: VENOUS BLOOD SPECIMEN Ordering Facility: [facility] Address: [address] [place] [address] Performed By: #### 2 4344-4 #### [facility] CLIA [id number] [address] [place] [address] [place] MCH (RBC) [Entitic mass] 31.2 pg Normal 26.0-34.0 [facility] Comment on above: Order Comment: Speci men Type: VENOUS BLOOD SPECIMEN Ordering Facility: [facility] Address: [address] [place] [address] Performed By: #### 2 4344-4 #### [facility] CLIA [id number] [address] [place] [address] [place] MCHC (RBC) [Mass/Vol] 34.9 g/dL Normal 30.5-36.0 [facility] Comment on above: Order Comment: Speci men Type: VENOUS BLOOD SPECIMEN Ordering Facility: [facility] Address: [address] [place] [address] Performed By: #### 2 4344-4 #### [facility] CLIA [id number] [address] [place] [address] [place] MCV (RBC) [Entitic vol] 89.6 fL Normal 80.0-100.0 [facility] Comment on above: Order Comment: Speci men Type: VENOUS BLOOD SPECIMEN Ordering Facility: [facility] Address: [address] [place] [address] Performed By: #### 2 4344-4 #### [facility] CLIA [id number] [address] [place] [address] [place] Monocytes (Bld) [#/Vol] 0.63 10*3/uL Normal <0.87 [facility] Comment on above: Order Comment: Speci men Type: VENOUS BLOOD SPECIMEN Ordering Facility: [facility] Address: [address] [place] [address] Performed By: #### 2 4344-4 #### [facility] CLIA [id number] [address] [place] [address] [place] Monocytes/100 WBC (Bld) 6.4 % Normal [facility] Comment on above: Order Comment: Speci men Type: VENOUS BLOOD SPECIMEN Ordering Facility: [facility] Address: [address] [place] [address] Performed By: #### 2 4344-4 #### [facility] CLIA [id number] [address] [place] [address] [place] Neutrophils (Bld) [#/Vol] 7.59 10*3/uL High 1.45-7.50 [facility] Comment on above: Order Comment: Speci men Type: VENOUS BLOOD SPECIMEN Ordering Facility: [facility] Address: [address] [place] [address] Performed By: #### 2 4344-4 #### [facility] CLIA [id number] [address] [place] [address] [place] Neutrophils/100 WBC (Bld) 77.8 % Normal [facility] Comment on above: Order Comment: Speci men Type: VENOUS BLOOD SPECIMEN Ordering Facility: [facility] Address: [address] [place] [address] Performed By: #### 2 4344-4 #### [facility] CLIA [id number] [address] [place] [address] [place] Nucleated RBC (Bld) [#/Vol] 10*3/uL Normal <0.01 [facility] Comment on above: Order Comment: Speci men Type: VENOUS BLOOD SPECIMEN Ordering Facility: [facility] Address: [address] [place] [address] Performed By: #### 2 4344-4 #### [facility] CLIA [id number] [address] [place] [address] [place] Nucleated RBC/100 WBC (Bld) [Ratio] 0.0 /[address] [facility] Comment on above: Order Comment: Speci men Type: VENOUS BLOOD SPECIMEN Ordering Facility: [facility] Address: [address] [place] [address] Performed By: #### 2 4344-4 #### [facility] CLIA [id number] [address] [place] [address] [place] Platelet mean volume (Bld) [Entitic vol] 9.8 fL Normal 9.0-12.7 [facility] Comment on above: Order Comment: Speci men Type: VENOUS BLOOD SPECIMEN Ordering Facility: [facility] Address: [address] [place] [address] Performed By: #### 2 4344-4 #### [facility] CLIA [id number] [address] [place] [address] [place] Platelets (Bld) [#/Vol] 161 10*3/uL Normal 150-400 [facility] Comment on above: Order Comment: Speci men Type: VENOUS BLOOD SPECIMEN Ordering Facility: [facility] Address: [address] [place] [address] Result Comment: No c lot detected. Performed By: #### 2 4344-4 #### [facility] CLIA [id number] [address] [place] [address] [place] RBC (Bld) [#/Vol] 3.65 10*6/uL Low 4.20-6.00 [facility] Comment on above: Order Comment: Speci men Type: VENOUS BLOOD SPECIMEN Ordering Facility: [facility] Address: [address] [place] [address] Performed By: #### 2 4344-4 #### [facility] CLIA [id number] [address] [place] [address] WBC (Bld) [#/Vol] 9.77 10*3/uL Normal 3.70-11.00 [facility] Comment on above: Order Comment: Speci men Type: VENOUS BLOOD SPECIMEN Ordering Facility: [facility] Address: [address] [place] [address] Performed By: #### 2 4344-4 #### [facility] CLIA [id number] [address] [place] [address] CK SerPl-cCncon 02-07-2024 CK [Catalytic activity/Vol] 272 U/L High 26-192 [facility] Comment on above: Order Comment: Speci men Type: BLOOD SPECIMEN Ordering Facility: [facility] Address: [address] [place] [address] Performed By: #### L WC1989, 38346-2 #### [facility] CLIA [id number] [address] [place], [place] [address] [facility] CONSULT PROGon 02-07-2024 CONSULT PROG HNO ID: [id number] Author: DANIELLE MCKINNON RPh Service: Pharmacy Author Type: Pharmacist Type: Consult Progress Note Filed: 02/07/2024 22:08 Note Text: PHARMACY VANCOMYCIN DOSING NOTE Patient Name: Luisito Zhong Admission Date: 02/06/2024 Date of Consult: 02/07/2024 Time of Consult: 10:07 PM Indication: Source unknown; empiric Goal Range: 15-20 mcg/mL RECOMMENDATIONS/PLAN: Pharmacy consulted for vancomycin dosing for Luisito Zhong, a 43 year old male. 1. Patient is currently ordered Vancomycin 1.5 g IV q12h. Today is day 1 of therapy. 2. No vancomycin level has been drawn for this dosing regimen. 3. The present dose of vancomycin is the recommended dosage for this patient at this time. Continue therapy as prescribed. 4. The next vancomycin level will be ordered for 02/08 unless clinically indicated sooner. (Pharmacy will order) We will follow patient renal function, vancomycin levels and doses with you during the course of therapy. Additional recommendations will appear in follow up notes. If you have any questions, please contact Pharmacy at [phone]. Age: [age] year old Allergies: ALLERGIES No Known Allergies Last 3 Encounter Wt Readings: Date: Wt: 02/06/2024 95 kg (209 lb 7 oz) Last 1 Encounter Ht Readings: Date: Ht: 02/06/2024 180.3 cm (5' 11) CrCl: 125 mL/min Temp (24hrs), Av.8 ?C (98.2 ?F), Min:36.6 ?C (97.8 ?F), Max:36.9 ?C (98.5 ?F) - Current Temp: 36.9 ?C (98.5 ?F) Labs BUN (mg/dL) Date Value 02/07/2024 12 02/07/2024 13 02/07/2024 10 Creatinine (mg/dL) Date Value 02/07/2024 0.89 02/07/2024 0.88 02/07/2024 0.91 WBC (k/uL) Date Value 02/07/2024 9.77 02/06/2024 11.41 (H) Vancomycin Levels: No results found for: Jaren FrazierD [facility] CONSULT PROG HNO ID: [id number] Author: ANIYA SKY [facility] Service: Pharmacy Author Type: Pharmacist Type: Consult Progress Note Filed: 02/07/2024 08:19 Note Text: PHARMACY VANCOMYCIN DOSING NOTE Patient Name: Luisito Zhong Admission Date: 02/06/2024 Date of Consult: 02/07/2024 Time of Consult: 8:19 AM Vancomycin therapy has been discontinued. Vancomycin level(s) have been discontinued: Yes. Pharmacy vancomycin dosing service will sign off. Thank you for allowing us to participate in this patient's care. Please contact pharmacy if there are questions. Age: [age] year old Allergies: ALLERGIES No Known Allergies Last 3 Encounter Wt Readings: Date: Wt: 02/06/2024 92.5 kg (203 lb 14.8 oz) Last 1 Encounter Ht Readings: Date: Ht: 02/06/2024 180.3 cm (5' 11) Temp (24hrs), Av.7 ?C (98.1 ?F), Min:36.6 ?C (97.8 ?F), Max:36.9 ?C (98.5 ?F) - Current Temp: 36.9 ?C (98.5 ?F) Labs BUN (mg/dL) Date Value 02/07/2024 12 02/07/2024 12 02/07/2024 14 02/07/2024 14 Creatinine (mg/dL) Date Value 02/07/2024 0.89 02/07/2024 0.89 02/07/2024 1.03 02/07/2024 1.03 WBC (k/uL) Date Value 02/07/2024 9.77 02/06/2024 11.41 (H) Vancomycin Levels: No results found for: DARIA Sky [facility] CONSULT PROG HNO ID: [id number] Author: LIZA HAYNES [facility] Service: Pharmacy Author Type: Pharmacist Type: Consult Progress Note Filed: 02/07/2024 03:31 Note Text: PHARMACY VANCOMYCIN DOSING NOTE Patient Name: Luisito Zhong Admission Date: 02/06/2024 Date of Consult: 02/07/2024 Time of Consult: 3:29 AM Indication: Source unknown; empiric Goal Range: 15-20 mcg/mL RECOMMENDATIONS/PLAN: Pharmacy consulted for vancomycin dosing for Luisito Zhong, a 43 year old male. 1. Patient is currently ordered Vancomycin 1.5 g IV q12h. Today is day 1 of therapy. 2. No vancomycin level has been drawn for this dosing regimen. 3. The present dose of vancomycin is the recommended dosage for this patient at this time. Continue therapy as prescribed. 4. The next vancomycin level has been ordered for 02/09/24 0700 (Completed) Trough ordered prior to 5th dose due to pharmacokinetic exception of concomitant nephrotoxins. (Zosyn) We will follow patient renal function, vancomycin levels and doses with you during the course of therapy. Additional recommendations will appear in follow up notes. If you have any questions, please contact pharmacy at [phone]. Age: [age] year old Allergies: ALLERGIES No Known Allergies Last 3 Encounter Wt Readings: Date: Wt: 02/06/2024 92.5 kg (203 lb 14.8 oz) Last 1 Encounter Ht Readings: Date: Ht: 02/06/2024 180.3 cm (5' 11) CrCl: 106.4 mL/min Temp (24hrs), Av.7 ?C (98.1 ?F), Min:36.6 ?C (97.8 ?F), Max:36.9 ?C (98.5 ?F) - Current Temp: 36.9 ?C (98.5 ?F) Labs BUN (mg/dL) Date Value 02/07/2024 14 02/07/2024 14 02/07/2024 12 Creatinine (mg/dL) Date Value 02/07/2024 1.03 02/07/2024 1.03 02/07/2024 1.12 WBC (k/uL) Date Value 02/06/2024 11.41 (H) Vancomycin Levels: No results found for: DARIA Haynes, [facility] Normal [facility] Calcium.ionized [Moles/Vol]o n 02-07-2024 Calcium.ionized (Bld) [Mass/Vol] 1.12 mmol/L Normal 1.08-1.30 [facility] Comment on above: Order Comment: Moses burton Type: VENOUS BLOOD SPECIMEN Ordering Facility: [facility] Address: [address] [place] [address] Performed By: #### 2 4344-4 #### [facility] CLIA [id number] [address] [place] [address] [place] OF [facility] Calcium.ionized adjusted to pH 7.4 (Bld) [Moles/Vol] 1.15 mmol/L Normal 1.08-1.30 [facility] Comment on above: Order Comment: Moses burton Type: VENOUS BLOOD SPECIMEN Ordering Facility: [facility] Address: [address] [place] [address] Performed By: #### 2 4344-4 #### [facility] CLIA [id number] [address] [place] [address] [place] Comprehensive metabolic 2000 panelon 02-07-2024 Albumin [Mass/Vol] 2.5 g/dL Low 3.2-5.0 [facility] Comment on above: Order Comment: Moses burton Type: BLOOD SPECIMEN Ordering Facility: [facility] Address: [address] [place] [address] Performed By: #### L [id number], 94607-7 #### [facility] CLIA [id number] [address] [place] [address] [place] ALP [Catalytic activity/Vol] 86 U/L Normal 45-117 [facility] Comment on above: Order Comment: Moses burton Type: BLOOD SPECIMEN Ordering Facility: [facility] Address: [address] [place] [address] Performed By: #### L [id number], 45862-7 #### [facility] CLIA [id number] [address] [place] [address] [place] ALT [Catalytic activity/Vol] 19 U/L Normal 13-61 [facility] Comment on above: Order Comment: Delfinai josephine Type: BLOOD SPECIMEN Ordering Facility: [facility] Address: [address] [place] [address] Result Comment: Resu lts may be falsely depressed after the administration of Sulfasalazine and/or Sulfapyridine. Performed By: #### L [id number], 92722-2 #### [facility] CLIA [id number] [address] [place] [address] [place] AST [Catalytic activity/Vol] 25 U/L Normal 8-34 [facility] Comment on above: Order Comment: Delfinai men Type: BLOOD SPECIMEN Ordering Facility: [facility] Address: [address] [place] [address] Result Comment: Resu lts may be falsely depressed after the administration of Sulfasalazine and/or Sulfapyridine. Performed By: #### L [id number], 09841-3 #### [facility] CLIA [id number] [address] [place] [address] [place] Bilirubin [Mass/Vol] 0.7 mg/dL Normal 0.2-1.0 [facility] Comment on above: Order Comment: Speci men Type: BLOOD SPECIMEN Ordering Facility: [facility] Address: [address] [place] [address] Performed By: #### L [id number], 26366-9 #### [facility] CLIA [id number] [address] [place] [address] [place] Protein [Mass/Vol] 5.1 g/dL Low 6.0-8.5 [facility] Comment on above: Order Comment: Speci men Type: BLOOD SPECIMEN Ordering Facility: [facility] Address: [address] [place] [address] Performed By: #### L [id number], 41449-1 #### [facility] CLIA [id number] [address] [place] [address] [place] Albumin [Mass/Vol] 2.6 g/dL Low 3.2-5.0 [facility] Comment on above: Order Comment: Speci men Type: BLOOD SPECIMEN Ordering Facility: [facility] Address: [address] [place] [address] Result Comment: DELT A CHECK&XA&Delta Check Reviewed Performed By: #### 5 5454-3 #### [facility] CLIA [id number] [address] [place] [address] [place] #### 85793-5 #### [facility] CLIA [id number] [address] [place] [address] [place] ALP [Catalytic activity/Vol] 93 U/L Normal 45-117 [facility] Comment on above: Order Comment: Speci men Type: BLOOD SPECIMEN Ordering Facility: [facility] Address: [address] [place] [address] Performed By: #### 5 5454-3 #### [facility] CLIA [id number] [address] [place] [address] [place] #### 90798-4 #### [facility] CLIA [id number] [address] [place] [address] [place] ALT [Catalytic activity/Vol] 19 U/L Normal 13-61 [facility] Comment on above: Order Comment: Speci men Type: BLOOD SPECIMEN Ordering Facility: [facility] Address: [address] [place] [address] Result Comment: Resu lts may be falsely depressed after the administration of Sulfasalazine and/or Sulfapyridine. Performed By: #### 5 5454-3 #### [facility] CLIA [id number] [address] [place] [address] [place] #### 35389-6 #### [facility] CLIA [id number] [address] [place] [address] [place] AST [Catalytic activity/Vol] 27 U/L Normal 8-34 [facility] Comment on above: Order Comment: Speci men Type: BLOOD SPECIMEN Ordering Facility: [facility] Address: [address] [place] [address] Result Comment: Resu lts may be falsely depressed after the administration of Sulfasalazine and/or Sulfapyridine. Performed By: #### 5 5454-3 #### [facility] CLIA [id number] [address] [place] [address] [place] #### 32555-4 #### [facility] CLIA [id number] [address] [place] [address] [place] Bilirubin [Mass/Vol] 0.6 mg/dL Normal 0.2-1.0 [facility] Comment on above: Order Comment: Speci men Type: BLOOD SPECIMEN Ordering Facility: [facility] Address: [address] [place] [address] Performed By: #### 5 5454-3 #### [facility] CLIA [id number] [address] [place] [address] [place] #### 25646-7 #### [facility] CLIA [id number] [address] [place] [address] [place] Protein [Mass/Vol] 5.1 g/dL Low 6.0-8.5 [facility] Comment on above: Order Comment: Speci men Type: BLOOD SPECIMEN Ordering Facility: [facility] Address: [address] [place] [address] Performed By: #### 5 5454-3 #### [facility] CLIA [id number] [address] [place] [address] [place] #### 23115-9 #### [facility] CLIA [id number] [address] [place] [address] [place] Cortis SerPl-mCncon 02-07-20 24 Cortisol [Mass/Vol] 30.1 ug/dL High 3.4-22.5 [facility] Comment on above: Order Comment: Speci men Type: BLOOD SPECIMEN Ordering Facility: [facility] Address: [address] [place] [address] Result Comment: PM: Approximately half of A.M. values Performed By: #### L IC1878, 13057-8 #### [facility] CLIA [id number] [address] [place] [address] [place] Ethanol SerPl-mCncon 024 Ethanol [Mass/Vol] 0.003 gm/dL Normal <0.010 [facility] Comment on above: Order Comment: Speci men Type: BLOOD SPECIMEN Ordering Facility: [facility] Address: [address] [place] [address] Performed By: #### 5 5454-3 #### [facility] CLIA [id number] [address] [place] [address] [place] #### 84572-4 #### [facility] CLIA [id number] [address] [place] [address] [place] Gas and Carbon monoxide pane l (BldV)on 02-07-2024 BASE DEFICIT, VENOUS -2 mmol/L Normal -2-0 [facility] Comment on above: Order Comment: Speci men Type: VENOUS BLOOD SPECIMEN Ordering Facility: [facility] Address: [address] [place] [address] Performed By: #### 2 4344-4 #### [facility] CLIA [id number] [address] [place] [address] [place] Body temperature 209.3 [degF] Normal [facility] Comment on above: Order Comment: Speci men Type: VENOUS BLOOD SPECIMEN Ordering Facility: [facility] Address: [address] [place] [address] Performed By: #### 2 4344-4 #### [facility] CLIA [id number] [address] [place] [address] [place] Calcium.ionized (Bld) [Mass/Vol] 1.02 mmol/L Low 1.08-1.30 [facility] Comment on above: Order Comment: Speci men Type: VENOUS BLOOD SPECIMEN Ordering Facility: [facility] Address: [address] [place] [address] Performed By: #### 2 4344-4 #### [facility] CLIA [id number] [address] [place] [address] [place] Carboxyhemoglobin (BldV) [Mass fraction] 1.3 % Normal 0.0-2.0 [facility] Comment on above: Order Comment: Speci men Type: VENOUS BLOOD SPECIMEN Ordering Facility: [facility] Address: [address] [place] [address] Result Comment: Carb oxyhemoglobin Reference Range for Smokers: 2.0-8.0% Performed By: #### 2 4344-4 #### [facility] CLIA [id number] [address] [place] [address] [place] CO2 (BldV) [Partial pressure] 23 mm[Hg] Low 42-55 [facility] Comment on above: Order Comment: Speci men Type: VENOUS BLOOD SPECIMEN Ordering Facility: [facility] Address: [address] [place] [address] Performed By: #### 2 4344-4 #### [facility] CLIA [id number] [address] [place] [address] [place] CO2 adjusted to patient's actual temperature (BldV) [Partial pressure] Normal [facility] Comment on above: Order Comment: Speci men Type: VENOUS BLOOD SPECIMEN Ordering Facility: [facility] Address: [address] [place] [address] Performed By: #### 2 4344-4 #### [facility] CLIA [id number] [address] [place] [address] [place] Glucose [Mass/Vol] 174 mg/dL High 60-105 [facility] Comment on above: Order Comment: Speci men Type: VENOUS BLOOD SPECIMEN Ordering Facility: [facility] Address: [address] [place] [address] Performed By: #### 2 4344-4 #### [facility] CLIA [id number] [address] [place] [address] [place] HCO3 (Bld) [Moles/Vol] 19 mmol/L Low 24-28 [facility] Comment on above: Order Comment: Speci men Type: VENOUS BLOOD SPECIMEN Ordering Facility: [facility] Address: [address] [place] [id number] Performed By: #### 2 4344-4 #### [facility] CLIA [id number] [address] [place] [address] [place] Hemoglobin (Bld) [Mass/Vol] 12.6 g/dL Low 13.0-17.0 [facility] Comment on above: Order Comment: Speci men Type: VENOUS BLOOD SPECIMEN Ordering Facility: [facility] Address: [address] [place] [place] [id number] Performed By: #### 2 4344-4 #### [facility] CLIA [id number] [address] [place] [address] [place] Lactate [Moles/Vol] 3.5 mmol/L High 0.5-2.2 [facility] Comment on above: Order Comment: Speci men Type: VENOUS BLOOD SPECIMEN Ordering Facility: [facility] Address: [address] [facility] [place] [address] Performed By: #### 2 4344-4 #### [facility] CLIA [id number] [address] [place], [place] [address] [place] Methemoglobin (Bld) [Mass fraction] 0.1 % Normal 0.0-1.5 [facility] Comment on above: Order Comment: Speci men Type: VENOUS BLOOD SPECIMEN Ordering Facility: [facility] Address: [address] [place] [address] Performed By: #### 2 4344-4 #### [facility] CLIA [id number] [address] [place] [address] [place] O2 THERAPY Ventilator Normal [facility] Comment on above: Order Comment: Speci men Type: VENOUS BLOOD SPECIMEN Ordering Facility: [facility] Address: [address] [place] [address] Performed By: #### 2 4344-4 #### [facility] CLIA [id number] [address] [place], [place] [address] [place] Oxygen (BldV) [Partial pressure] 81 mm[Hg] High 35-45 [facility] Comment on above: Order Comment: Speci men Type: VENOUS BLOOD SPECIMEN Ordering Facility: [facility] Address: [address] [facility] [place] [address] Performed By: #### 2 4344-4 #### [facility] CLIA [id number] [address] [place], [place] [address] [place] Oxygen adjusted to patient's actual temperature (BldV) [Partial pressure] Normal [facility] Comment on above: Order Comment: Speci men Type: VENOUS BLOOD SPECIMEN Ordering Facility: [facility] Address: [address] [place] [address] Performed By: #### 2 4344-4 #### [facility] CLIA [id number] [address] [place], [place] [address] [place] Oxyhemoglobin (BldV) [Mass fraction] 96 % Normal 4-98 [facility] Comment on above: Order Comment: Speci men Type: VENOUS BLOOD SPECIMEN Ordering Facility: [facility] Address: [facility] [place] [address] Performed By: #### 2 4344-4 #### [facility] CLIA [id number] [address] [place] [address] [place] pH (BldV) 7.53 [pH] High 7.32-7.42 [facility] Comment on above: Order Comment: Speci men Type: VENOUS BLOOD SPECIMEN Ordering Facility: [facility] Address: [address] [place] [address] Performed By: #### 2 4344-4 #### [facility] CLIA [id number] [address] [place] [address] [place] pH adjusted to patient's actual temperature (BldV) Normal [facility] Comment on above: Order Comment: Speci men Type: VENOUS BLOOD SPECIMEN Ordering Facility: [facility] Address: [address] [place] [address] Performed By: #### 2 4344-4 #### [facility] CLIA [id number] [address] [place] [address] [place] Potassium [Moles/Vol] 3.6 mmol/L Normal 2.5-6.0 [facility] Comment on above: Order Comment: Speci men Type: VENOUS BLOOD SPECIMEN Ordering Facility: [facility] Address: [address] [place] [address] Performed By: #### 2 4344-4 #### [facility] CLIA [id number] [address] [place] [address] [place] Sodium [Moles/Vol] 136 mmol/L Normal 136-144 [facility] Comment on above: Order Comment: Speci men Type: VENOUS BLOOD SPECIMEN Ordering Facility: [facility] Address: [address] [place] [address] Performed By: #### 2 4344-4 #### [facility] CLIA [id number] [address] [place] [address] ON[place] BASE DEFICIT, VENOUS -7 mmol/L Low -2-0 [facility] Comment on above: Order Comment: Speci men Type: VENOUS BLOOD SPECIMEN Ordering Facility: [facility] Address: [address] [place] [address] Performed By: #### 2 4344-4 #### [facility] CLIA [id number] [address] [place] [address] Body temperature 209.3 [degF] Normal [facility] Comment on above: Order Comment: Speci men Type: VENOUS BLOOD SPECIMEN Ordering Facility: [facility] Address: [address] [place] [address] Performed By: #### 2 4344-4 #### [facility] CLIA [id number] [address] [place] [address] [place] Calcium.ionized (Bld) [Mass/Vol] 1.11 mmol/L Normal 1.08-1.30 [facility] Comment on above: Order Comment: Speci men Type: VENOUS BLOOD SPECIMEN Ordering Facility: [facility] Address: [address] [place] [address] Performed By: #### 2 4344-4 #### [facility] CLIA [id number] [address] [place] [address] OF [place] Carboxyhemoglobin (BldV) [Mass fraction] 0.5 % Normal 0.0-2.0 [facility] Comment on above: Order Comment: Speci men Type: VENOUS BLOOD SPECIMEN Ordering Facility: [facility] Address: [address] [place] [address] Result Comment: Carb oxyhemoglobin Reference Range for Smokers: 2.0-8.0% Performed By: #### 2 4344-4 #### [facility] CLIA [id number] [address] [place] [address] OF [place] CO2 (BldV) [Partial pressure] 23 mm[Hg] Low 42-55 [facility] Comment on above: Order Comment: Speci men Type: VENOUS BLOOD SPECIMEN Ordering Facility: [facility] Address: [address] [place] [address] Performed By: #### 2 4344-4 #### [facility] CLIA [id number] [address] [place] [address] [place] CO2 adjusted to patient's actual temperature (BldV) [Partial pressure] Normal [facility] Comment on above: Order Comment: Speci men Type: VENOUS BLOOD SPECIMEN Ordering Facility: [facility] Address: [address] [place] [address] [place] [address] Performed By: #### 2 4344-4 #### [facility] CLIA [id number] [address] [place] [address] [place] Glucose [Mass/Vol] 261 mg/dL High 60-105 [facility] Comment on above: Order Comment: Speci men Type: VENOUS BLOOD SPECIMEN Ordering Facility: [facility] Address: [address] [place] [address] Performed By: #### 2 4344-4 #### [facility] CLIA [id number] [address] [place] [address] [place] HCO3 (Bld) [Moles/Vol] 15 mmol/L Low 24-28 [facility] Comment on above: Order Comment: Speci men Type: VENOUS BLOOD SPECIMEN Ordering Facility: [facility] Address: [facility] [place] [address] Performed By: #### 2 4344-4 #### [facility] CLIA [id number] [address] [place] [address] [place] Hemoglobin (Bld) [Mass/Vol] 12.4 g/dL Low 13.0-17.0 [facility] Comment on above: Order Comment: Speci men Type: VENOUS BLOOD SPECIMEN Ordering Facility: [facility] Address: [facility] [place] [address] Performed By: #### 2 4344-4 #### [facility] CLIA [id number] [address] [place] [address] [place] Lactate [Moles/Vol] 3.3 mmol/L High 0.5-2.2 [facility] Comment on above: Order Comment: Speci men Type: VENOUS BLOOD SPECIMEN Ordering Facility: [facility] Address: [address] [facility] [place] [address] Performed By: #### 2 4344-4 #### [facility] CLIA [id number] [address] [place], [place] [address] [place] Methemoglobin (Bld) [Mass fraction] 0.2 % Normal 0.0-1.5 [facility] Comment on above: Order Comment: Speci men Type: VENOUS BLOOD SPECIMEN Ordering Facility: [facility] Address: [address] [place] [address] Performed By: #### 2 4344-4 #### [facility] CLIA [id number] [address] [place] [address] [place] O2 THERAPY Ventilator Normal [facility] Comment on above: Order Comment: Speci men Type: VENOUS BLOOD SPECIMEN Ordering Facility: [facility] Address: [address] [place] [address] Performed By: #### 2 4344-4 #### [facility] CLIA [id number] [address] [place] [address] [place] Oxygen (BldV) [Partial pressure] 123 mm[Hg] High 35-45 [facility] Comment on above: Order Comment: Speci men Type: VENOUS BLOOD SPECIMEN Ordering Facility: [facility] Address: [address] [place] [address] Performed By: #### 2 4344-4 #### [facility] CLIA [id number] [address] [place] [address] [place] Oxygen adjusted to patient's actual temperature (BldV) [Partial pressure] Normal [facility] Comment on above: Order Comment: Speci men Type: VENOUS BLOOD SPECIMEN Ordering Facility: [facility] Address: [address] [place] [address] Performed By: #### 2 4344-4 #### [facility] CLIA [id number] [address] [place], [place] [address] [place] Oxyhemoglobin (BldV) [Mass fraction] 97 % Normal 4-98 [facility] Comment on above: Order Comment: Speci men Type: VENOUS BLOOD SPECIMEN Ordering Facility: [facility] Address: [address] [place] [address] Performed By: #### 2 4344-4 #### [facility] CLIA [id number] [address] [place] [address] pH (BldV) 7.45 [pH] High 7.32-7.42 [facility] Comment on above: Order Comment: Speci men Type: VENOUS BLOOD SPECIMEN Ordering Facility: [facility] Address: [address] [place] [address] Performed By: #### 2 4344-4 #### [facility] CLIA [id number] [address] [place] [address] pH adjusted to patient's actual temperature (BldV) Normal [facility] Comment on above: Order Comment: Speci men Type: VENOUS BLOOD SPECIMEN Ordering Facility: [facility] Address: [address] [place] [address] Performed By: #### 2 4344-4 #### [facility] CLIA [id number] [address] [place] [address] [place] Potassium [Moles/Vol] 3.8 mmol/L Normal 2.5-6.0 [facility] Comment on above: Order Comment: Speci men Type: VENOUS BLOOD SPECIMEN Ordering Facility: [facility] Address: [address] [place] [address] Performed By: #### 2 4344-4 #### [facility] CLIA [id number] [address] [place] [address] [facility] Sodium [Moles/Vol] 135 mmol/L Low 136-144 [facility] Comment on above: Order Comment: Speci men Type: VENOUS BLOOD SPECIMEN Ordering Facility: [facility] Address: [address] [place] [address] Performed By: #### 2 4344-4 #### [facility] CLIA [id number] [address] [place] [address] OF [place] HBV core Ab Ser Qlon 024 HBV core Ab Ql (S) Non-Reactive Normal Nonreactive [facility] Comment on above: Order Comment: Moses burton Type: BLOOD SPECIMEN Ordering Facility: [facility] Address: [address] [place] [address] Result Comment: Resu lts were obtained with the [employer] IM IgM assay. Values obtained with different manufactures' assay methods may not be used interchangeably. Performed By: #### L [id number], 27766-5 #### [facility] CLIA [id number] [address] [place] [address] [place] HBV surface Ab Ql (S)on 01-10 HBV surface Ab Qn (S) <3.[address] [facility] Comment on above: Order Comment: Moses burton Type: BLOOD SPECIMEN Ordering Facility: [facility] Address: [address] [place] [address] Result Comment: STAT US OF IMMUNITY Protective Immunity: greater than or equal to 10 mIU/mL (Traceable to WHO International Reference Preparation) No Protective Immunity: less than 10 mIU/mL Note: The magnitude of the measured result above the cutoff is not indicative of the total amount of antibody present. Performed By: #### L [id number], 06653-0 #### [facility] CLIA [id number] [address] [place] [address] [place] OF [facility] HBV surface Ab Ser Qlon 01-10 HBV surface Ab Ql (S) Negative Normal [facility] Comment on above: Order Comment: Moses burton Type: BLOOD SPECIMEN Ordering Facility: [facility] Address: [address] [place] [address] Result Comment: No s erological evidence of immunity to Hepatitis B Virus. Performed By: #### L [id number], 45993-6 #### [facility] CLIA [id number] [address] [place] [address] [place] HBV surface Ag Ser Qlon 01-10 HBV surface Ag Ql (S) Non-Reactive Normal Equivocal, Nonreactive [facility] Comment on above: Order Comment: Moses josephine Type: BLOOD SPECIMEN Ordering Facility: [facility] Address: [address] [place] [address] Result Comment: Resu lts were obtained with the [employer] IM IgM assay. Values obtained with different manufactures' assay methods may not be used interchangeably. Performed By: #### L AG2410, 02042-0 #### [facility] CLIA [id number] [address] [place] [address] [place] HCV Ab Ser Qlon 02-07-2024 HCV Ab Ql (S) Non-Reactive Normal Nonreactive [facility] Comment on above: Order Comment: Speci [facility] Type: BLOOD SPECIMEN Ordering Facility: [facility] Address: [address] [place] [address] Result Comment: Scre ening test negative Nonreactive HCV Antibody Screen is consistent with no HCV infection, unless recent infection is suspected or other evidence exists to indicate HCV infection. Results were obtained with the [employer] IM IgG assay. Values obtained with different manufactures' assay methods may not be used interchangeably. Performed By: #### L [id number], 01580-4 #### [facility] CLIA [id number] [address] [place] [address] [place] HIGH SENSITIVITY TROPONIN Io n 02-07-2024 Tropinin I.cardiac panel High sensitivity method 87.6 pg/mL High 0.0-54.0 [facility] Comment on above: Order Comment: Specmolly [facility] Type: BLOOD SPECIMEN Ordering Facility: [facility] Address: [address] [place] [address] Result Comment: CRIT ICAL Performed By: #### [place], [address]-0, 58138-4 #### [facility] CLIA [id number] [address] [place] [address] [place] Tropinin I.cardiac panel High sensitivity method 106.1 pg/mL High 0.0-54.0 [facility] Comment on above: Order Comment: Speci men Type: BLOOD SPECIMEN Ordering Facility: [facility] Address: [address] [place] [address] Result Comment: CRIT ICAL Performed By: #### L [id number], 60636-3 #### [facility] CLIA [id number] [address] [place] [address] [place] Tropinin I.cardiac panel High sensitivity method 85.5 pg/mL High 0.0-54.0 [facility] Comment on above: Order Comment: Speci men Type: VENOUS BLOOD SPECIMEN Ordering Facility: [facility] Address: [address] [place] [address] Result Comment: CRIT ICAL Performed By: #### 2 4344-4 #### [facility] CLIA [id number] [address] [place] [address] Tropinin I.cardiac panel High sensitivity method 77.6 pg/mL High 0.0-54.0 [facility] Comment on above: Order Comment: Speci men Type: BLOOD SPECIMEN Ordering Facility: [facility] Address: [address] [place] [address] Result Comment: CRIT ICAL Performed By: #### 5 5454-3 #### [facility] CLIA [id number] [address] [place] [address] [place] #### 82663-5 #### [facility] CLIA [id number] [address] [place] [address] [place] OF [place] HIV 1+2 Ab IA Qlon 4 HIV 1+2 Ab+HIV1 p24 Ag IA Ql Non-Reactive Normal Nonreactive [facility] Comment on above: Order Comment: Speci men Type: BLOOD SPECIMEN Ordering Facility: [facility] Address: [address] [place] [address] Result Comment: Nonr eactive: Less than 1.0 index value Specimens with an index value <1.0 are considered nonreactive for antibodies to HIV-1, HIV-2, and p24 antigen by the [employer] IM CHIV assay. Performed By: #### 5 5454-3 #### [facility] CLIA [id number] [address] [place] [address] [place] #### 70480-5 #### [facility] CLIA [id number] [address] [place] [address] [place] Lactate (Bld) [Moles/Vol]on 02-07-2024 Lactate [Moles/Vol] 2.0 mmol/L Normal 0.4-2.0 [facility] Comment on above: Order Comment: Speci men Type: BLOOD SPECIMEN Ordering Facility: [facility] Address: [address] [place] [address] Performed By: #### [place], 517[address]-2, 64718-3 #### [facility] CLIA [id number] [address] [place] [address] [place] Lactate [Moles/Vol] 1.6 mmol/L Normal 0.4-2.0 [facility] Comment on above: Order Comment: Speci men Type: BLOOD SPECIMEN Ordering Facility: [facility] Address: [address] [place] [address] Performed By: #### L AT6346, 72833-4 #### [facility] CLIA [id number] [address] [place] [address] [place] Lactate [Moles/Vol] 2.9 mmol/L High 0.4-2.0 [facility] Comment on above: Order Comment: Speci men Type: VENOUS BLOOD SPECIMEN Ordering Facility: [facility] Address: [address] [place] [address] Performed By: #### 2 4344-4 #### [facility] CLIA [id number] [address] [place] [address] [place] Legionella Ag Ur Qlon 2023 Legionella sp Ag Ql (U) Negative Normal Negative [facility] Comment on above: Order Comment: Speci men Type: VENOUS BLOOD SPECIMEN Ordering Facility: [facility] Address: [address] [place] [address] Performed By: #### 2 4344-4 #### [facility] CLIA [id number] [address] [place] [address] [place] Lipase SerPl-cCncon 02-07-20 24 Lipase [Catalytic activity/Vol] 15 U/L Normal 12-60 [facility] Comment on above: Order Comment: Moses burton Type: BLOOD SPECIMEN Ordering Facility: [facility] Address: [address] [place] [address] Performed By: #### 5 5454-3 #### [facility] CLIA [id number] [address] [place] [address] [id number] [place] [address] [place] #### 48169-4 #### [facility] CLIA [id number] [address] [place], [place] [address] [place] Magnesium SerPl-mCncon 02-06 Magnesium [Mass/Vol] 1.7 mg/dL Normal 1.6-2.6 [facility] Comment on above: Order Comment: Moses burton Type: BLOOD SPECIMEN Ordering Facility: [facility] Address: [address] [place] [address] Performed By: #### L [id number], 66136-3 #### [facility] CLIA [id number] [address] [place] [address] [place] PT panel Coag (PPP)on 2023 INR Coag (PPP) [Relative time] 1.1 {INR} Normal 0.9-1.3 [facility] Comment on above: Order Comment: Moses burton Type: VENOUS BLOOD SPECIMEN Ordering Facility: [facility] Address: [address] [place] [address] Result Comment: Humaira min K Antagonist (VKA) Therapeutic Range: INR 2 to 3 (Target INR of 2.5) Note: For patients treated with VKA drugs, such as warfarin, the [employer] 2012 Guideline recommends a therapeutic INR range of 2 to 3 (target INR of 2.5). This recommendation includes high-risk patients with antiphospholipid syndrome with previous arterial or venous thromboembolism, current-generation mechanical or bioprosthetic aortic heart valve replacement. Note: Patients with mechanical aortic valve replacement and additional risk factors for thromboembolic events (atrial fibrillation, previous thromboembolism, LV dysfunction, hypercoagulable conditions) or an older generation mechanical AVR (i.e., ball in-Cage) or any mechanical MVR should have a INR therapeutic range of 2.5 to 3.5 (target INR of 3). Delores GH, et al. Chest 2012, 141:7S-47S Cinda RA, et al. [facility] 2017, 70: 252-289 Performed By: #### 2 4344-4 #### [facility] CLIA [id number] [address] [place], [place] [address] [place] PT Coag (PPP) [Time] 12.3 s Normal 9.7-13.0 [facility] Comment on above: Order Comment: Moses burton Type: VENOUS BLOOD SPECIMEN Ordering Facility: [facility] Address: [address] [place] [address] Performed By: #### 2 4344-4 #### [facility] CLIA [id number] [address] [place], [place] [address] [place] Phosphate SerPl-mCncon 02-06 Phosphate [Mass/Vol] 0.9 mg/dL Low 2.5-4.9 [facility] Comment on above: Order Comment: Moses burton Type: BLOOD SPECIMEN Ordering Facility: [facility] Address: [address] [place] [address] Result Comment: CRIT ICAL Elevated m-protein (paraprotein) levels in the serum may be exhibited in patients with monoclonal gammopathies, causing falsely elevated inorganic phosphorus results. Performed By: #### L [id number], 62621-8 #### [facility] CLIA [id number] [address] [place], [place] [address] [place] Procalcitonin SerPl-mCncon 0 02-07-2024 Procalcitonin [Mass/Vol] 0.52 ng/mL High 0.00-0.50 [facility] Comment on above: Order Comment: Moses burton Type: BLOOD SPECIMEN Ordering Facility: [facility] Address: [address] [place] [id number] Result Comment: PCT Concentration Interpretation PCT <=0.1 ng/mL: Normal range for healthy adults PCT >0.1 ng/mL and <0.5 ng/mL: Systemic infection (sepsis) is possible and may require antibiotic treatment, but other conditions are known to elevate PCT as well. PCT >0.5 ng/mL: Should be considered at risk for developing severe sepsis or septic shock. PCT >2.0 ng/mL: Important systemic inflammatory response. Almost exclusively indicates episode of severe bacterial sepsis or septic shock. Performed By: #### 5 5454-3 #### [facility] CLIA [id number] [address] [place] [address] [place] #### 74339-0 #### [facility] CLIA [id number] [address] [place] [address] [place] SEPSIS LACTATE W/ REFLEX (SE COND)on 02-07-2024 Lactate [Moles/Vol] 6.8 mmol/L High 0.4-2.0 [facility] Comment on above: Order Comment: Speci men Type: BLOOD SPECIMEN Ordering Facility: [facility] Address: [address] [place] [address] Result Comment: CRIT ICAL Performed By: #### 5 5454-3 #### [facility] CLIA [id number] [address] [place] [address] [place] #### 22976-2 #### [facility] CLIA [id number] [address] [place] [address] [place] STAPHYLOCOCCUS AUREUS AND MR SA SCREEN, PCR, NASALon 02-07-2024 S. aureus and MRSA panel VAISHALI+probe (Nose) Methicillin-SUSCEPTIBLE Staphylococcus aureus Detected Abnormal Not Detected [facility] Comment on above: Order Comment: Speci men Type: BLOOD SPECIMEN Ordering Facility: [facility] Address: [address] [place] [address] Performed By: #### 5 5454-3 #### [facility] CLIA [id number] [address] [place] [address] [place] #### 13094-9 #### [facility] CLIA [id number] [address] [place] [address] [place] STREPTOCOCCUS PNEUMONIAE ANT IGEN URINEon 02-07-2024 STREPTOCOCCUS PNEUMONIAE ANTIGEN URINE STREP PNEUMO AG RESULT: Negative for Streptococcus pneumoniae antigen. Presumptive negative for pneumococcal pneumonia, suggesting no current or recent pneumococcal infection. Infection due to S.pneumoniae cannot be ruled out since the antigen present in the sample may be below the detection limit of the test. Normal [facility] Comment on above: Performed By: #### 2 4344-4 #### [facility] CLIA [id number] [address] [place] [address] THERAPY NTon 02-07-2024 THERAPY NT HNO ID: [id number] Author: JUNIOR KULKARNI RRT Service: Respiratory Therapy Author Type: Registered Resp Therapist Type: Therapy (PT/OT/Speech/Resp) Filed: 02/07/2024 00:49 Note Text: Summary: Intubation RESPIRATORY THERAPY INTUBATION PROCEDURE NOTE PROCEDURE DATE: February 07, 2024 PROCEDURE START TIME: 24 INFORMED CONSENT: Due to emergent situation informed consent was not obtained OROTRACHEAL INTUBATION Indication: Airway Protection Sedation: Yes, See Code Blue/[place] Paper Form or MAR Equipment Available: Endotracheal tube, size 8 mm and Video Laryngoscope [place] Scope The patient was administered supplemental oxygen by bag-mask ventilation. Adjunct airway equipment and suction were at the bedside and ready to use. The head was placed in the sniffing position. I - Visualized entire cords via direct video laryngoscopy. The reason for intubation was airway protection. An endotracheal tube 8 mm was inserted using a video laryngoscopy and secured at 24 cm at the lip line. Placement was confirmed with positive-end tidal CO2 color change and chest x-ray ordered to confirm placement, results pending. Patient tolerated procedure well. Complications: None. Difficulty Encountered: None Number of Attempts for Intubation: 1 Estimated Blood Loss if > Minimal Noted Here SIGNATURE: Junior Kulkarni RRT PATIENT NAME: Luisito Zhong DATE: February 07, 2024 TIME: 12:[address] [facility] TSH SerPl-aCncon 02-07-2024 TSH Qn 73.494 m[IU]/L High 0.358-3.740 [facility] Comment on above: Order Comment: Specmolly burton Type: BLOOD SPECIMEN Ordering Facility: [facility] Address: [address] [place] [address] Result Comment: 3rd generation ultra sensitive TSH. Performed By: #### 5 5454-3 #### [facility] CLIA [id number] [address] [place] [address] [place] #### 78188-4 #### [facility] CLIA [id number] [address] [place] [address] [place] Trigl SerPl-mCncon 4 Triglyceride [Mass/Vol] 408 mg/dL High 30-149 [facility] Comment on above: Order Comment: Moses burton Type: BLOOD SPECIMEN Ordering Facility: [facility] Address: [address] [place] [address] Result Comment: <150 mg/dL, Normal 150-199 mg/dL, Borderline high 200-499 mg/dL, High >499 mg/dL, Very high Reference: 1. National Cholesterol Education Program ATP III Guideline At-A-Glance Quick Desk Reference: National Heart, Lung, and Blood [place]. National Institutes of Health. 2001: NIH Publication No. 01-3305. Patients receiving either N-Acetylcysteine (NAC) or Metamizole prior to venipuncture, may have falsely depressed results. Performed By: #### 5 5454-3 #### [facility] CLIA [id number] [address] [place] [address] [place] #### 51786-3 #### [facility] CLIA [id number] [address] [place], [place] [address] [place] Triglyceride [Mass/Vol]on FASTING TIME unknown Normal [facility] Comment on above: Order Comment: Speci men Type: BLOOD SPECIMEN Ordering Facility: [facility] Address: [address] [place] [address] Performed By: #### 5 5454-3 #### [facility] CLIA [id number] [address] [place] [address] [place] #### 94262-5 #### [facility] CLIA [id number] [address] [place], [place] [address] [place] US ABD LIVER VASCULARon - US ABD LIVER VASCULAR * * *Final Report* * * DATE OF EXAM: Feb 07 2024 8:30PM U 1233 - US ABD LIVER VASCULAR / PROCEDURE REASON: Liver disease, chronic, fibrosis * * * * Physician Interpretation * * * * EXAMINATION: LIVER VASCULAR ULTRASOUND WITH DOPPLER IMAGING WITH LIVER ELASTOGRAPHY CLINICAL HISTORY: Cirrhosis. Liver disease, chronic fibrosis. TECHNIQUE: Sonography of the liver with color and spectral Doppler imaging of the hepatic vasculature was performed. Images were obtained and stored in a permanent archive. MQ: USLV_1 COMPARISON: None. RESULT: Sonographic Findings: Pancreas: Normal sonographic appearance. Portions obscured: tail Liver: Echotexture: Normal, homogeneous. Echogenicity: Normal with a geographic ill-defined region of increased echogenicity in the left hepatic lobe compatible with focal fatty infiltration. Surface contour: Smooth Lesions: None. Biliary: No intrahepatic biliary duct dilation. CBD: 0.5 cm at the hilum. Gallbladder: Normal caliber -Contents: No cholelithiasis -Wall: Borderline nonspecific wall thickening present. -Other: Trace pericholecystic fluid. Right Kidney: No hydronephrosis. Spleen: Craniocaudal length 11.2 cm, normal. There are no splenic lesions. Other: Trace perihepatic ascites. HEPATIC VASCULATURE: PORTAL SYSTEM: -Splenic Vein: Patent with antegrade flow (towards the liver). -Main PV: Patent with increased phasicity 24.8 cm/sec -Right anterior PV: Patent with increased phasicity -Right posterior PV: Patent with increased phasicity -Left PV: Patent with phasic antegrade flow (towards liver). HEPATIC ARTERIES: - Main GARRISON: Normal waveform PSV: 79.2 cm/sec. RI: 0.67 - Right anterior GARRISON: Normal waveform - Right posterior GARRISON: Normal waveform - Left GARRISON: Normal waveform HEPATIC VEINS: -Left: Patent with triphasic waveform. -Middle: Patent with triphasic waveform. -Right: Patent with triphasic waveform. IVC: Patent with normal, phasic wave form. LIVER ELASTOGRAPHY: ARFI median: 1.7 m/s IQR - 0.14 IQR/median ratio = 0.08 (must be 0.3 or less to ensure technical adequacy) Recommendation for Interpretation of Liver Stiffness Values Obtained with ARFI Techniques in Patients with Viral Hepatitis and NAFLD: Liver Stiffness Value: Recommendation: <=5 kPa (1.3 m/sec) High probability of being normal <9 kPa (1.7 m/sec) In absence of other known clinical signs, rules out cACLD. <9 kPa (1.7 m/sec) If known clinical signs, may need further test for confirmation. 9-13 kPa (1.7-2.1 m/sec) Suggestive of cACLD but need further test for confirmation > 13 kPa (2.1 m/sec) Rules in cACLD > 17 kPa (2.4 m/sec) Suggestive of CSPH ARFI = acoustic radiation force impulse cACLD = compensated advanced chronic liver disease CSPH = clinically significant portal hypertension NAFLD = non-alcoholic fatty liver disease IMPRESSION: Findings in keeping with geographic fatty infiltration of the left hepatic lobe. Otherwise, unremarkable sonographic appearance of the liver. No focal mass. Liver elastography results rule out compensated advanced chronic liver disease in the absence of other known clinical signs. If clinical signs are known, further testing may be necessary for confirmation. The hepatic vessels are patent with appropriate directional flow. There is increased portal venous phasicity noted which can be seen with tricuspid regurgitation or right heart failure. Borderline, nonspecific color wall thickening with trace pericholecystic fluid. No cholelithiasis. Nonenlarged spleen. Journeyman Pipefitter: BOYD Transcribe Date/Time: Feb 08 2024 4:30P Dictated by : DULCE MARIA INFANTE MD This examination was interpreted and the report reviewed and electronically signed by: DULCE MARIA INFANTE MD on Feb 08 2024 4:49PM EST [id number] Normal [facility] US ELASTROGRAPHY LIVERon US ELASTROGRAPHY LIVER * * *Final Report* * * DATE OF EXAM: Feb 07 2024 7:30PM RHU [id number] - US ELASTROGRAPHY LIVER / PROCEDURE REASON: Cirrhosis * * * * Physician Interpretation * * * * EXAMINATION: LIVER VASCULAR ULTRASOUND WITH DOPPLER IMAGING WITH LIVER ELASTOGRAPHY CLINICAL HISTORY: Cirrhosis. Liver disease, chronic fibrosis. TECHNIQUE: Sonography of the liver with color and spectral Doppler imaging of the hepatic vasculature was performed. Images were obtained and stored in a permanent archive. MQ: USLV_1 COMPARISON: None. RESULT: Sonographic Findings: Pancreas: Normal sonographic appearance. Portions obscured: tail Liver: Echotexture: Normal, homogeneous. Echogenicity: Normal with a geographic ill-defined region of increased echogenicity in the left hepatic lobe compatible with focal fatty infiltration. Surface contour: Smooth Lesions: None. Biliary: No intrahepatic biliary duct dilation. CBD: 0.5 cm at the hilum. Gallbladder: Normal caliber -Contents: No cholelithiasis -Wall: Borderline nonspecific wall thickening present. -Other: Trace pericholecystic fluid. Right Kidney: No hydronephrosis. Spleen: Craniocaudal length 11.2 cm, normal. There are no splenic lesions. Other: Trace perihepatic ascites. HEPATIC VASCULATURE: PORTAL SYSTEM: -Splenic Vein: Patent with antegrade flow (towards the liver). -Main PV: Patent with increased phasicity 24.8 cm/sec -Right anterior PV: Patent with increased phasicity -Right posterior PV: Patent with increased phasicity -Left PV: Patent with phasic antegrade flow (towards liver). HEPATIC ARTERIES: - Main GARRISON: Normal waveform PSV: 79.2 cm/sec. RI: 0.67 - Right anterior GARRISON: Normal waveform - Right posterior GARRISON: Normal waveform - Left GARRISON: Normal waveform HEPATIC VEINS: -Left: Patent with triphasic waveform. -Middle: Patent with triphasic waveform. -Right: Patent with triphasic waveform. IVC: Patent with normal, phasic wave form. LIVER ELASTOGRAPHY: ARFI median: 1.7 m/s IQR - 0.14 IQR/median ratio = 0.08 (must be 0.3 or less to ensure technical adequacy) Recommendation for Interpretation of Liver Stiffness Values Obtained with ARFI Techniques in Patients with Viral Hepatitis and NAFLD: Liver Stiffness Value: Recommendation: <=5 kPa (1.3 m/sec) High probability of being normal <9 kPa (1.7 m/sec) In absence of other known clinical signs, rules out cACLD. <9 kPa (1.7 m/sec) If known clinical signs, may need further test for confirmation. 9-13 kPa (1.7-2.1 m/sec) Suggestive of cACLD but need further test for confirmation > 13 kPa (2.1 m/sec) Rules in cACLD > 17 kPa (2.4 m/sec) Suggestive of CSPH ARFI = acoustic radiation force impulse cACLD = compensated advanced chronic liver disease CSPH = clinically significant portal hypertension NAFLD = non-alcoholic fatty liver disease IMPRESSION: Findings in keeping with geographic fatty infiltration of the left hepatic lobe. Otherwise, unremarkable sonographic appearance of the liver. No focal mass. Liver elastography results rule out compensated advanced chronic liver disease in the absence of other known clinical signs. If clinical signs are known, further testing may be necessary for confirmation. The hepatic vessels are patent with appropriate directional flow. There is increased portal venous phasicity noted which can be seen with tricuspid regurgitation or right heart failure. Borderline, nonspecific color wall thickening with trace pericholecystic fluid. No cholelithiasis. Nonenlarged spleen. Journeyman Pipefitter: BOYD Transcribe Date/Time: Feb 08 2024 4:30P Dictated by : DULCE MARIA INFANTE MD This examination was interpreted and the report reviewed and electronically signed by: DULCE MARIA INFANTE MD on Feb 08 2024 4:49PM EST [id number] Normal [facility] Urinalysis complete panel (U )on 02-07-2024 Bacteria LM.HPF (Urine sed) [#/Area] None Seen Normal None Seen [facility] Comment on above: Order Comment: Speci men Type: BLOOD SPECIMEN Ordering Facility: [facility] Address: [address] [place] [address] Performed By: #### 5 5454-3 #### [facility] CLIA [id number] [address] [place] [address] [place] #### 47674-8 #### [facility] CLIA [id number] [address] [place] [address] [place] Bilirubin Ql (U) Negative Normal Negative [facility] Comment on above: Order Comment: Speci men Type: BLOOD SPECIMEN Ordering Facility: [facility] Address: [address] [place] [address] Performed By: #### 5 5454-3 #### [facility] CLIA [id number] [address] [place] [address] [place] #### 01692-9 #### [facility] CLIA [id number] [address] [place] [address] [place] Clarity (Unsp spec) Clear Normal Clear [facility] Comment on above: Order Comment: Speci men Type: BLOOD SPECIMEN Ordering Facility: [facility] Address: [address] [place] [address] Performed By: #### 5 5454-3 #### [facility] CLIA [id number] [address] [place] [address] [place] #### 72548-6 #### [facility] CLIA [id number] [address] [place] [address] [place] Color (U) Yellow Normal Yellow [facility] Comment on above: Order Comment: Speci men Type: BLOOD SPECIMEN Ordering Facility: [facility] Address: [address] [place] [address] Performed By: #### 5 5454-3 #### [facility] CLIA [id number] [address] [place] [address] [place] #### 54203-3 #### [facility] CLIA [id number] [address] [place] [address] [place] Epithelial cells LM.HPF (Urine sed) [#/Area] None Seen Normal [facility] Comment on above: Order Comment: Speci men Type: BLOOD SPECIMEN Ordering Facility: [facility] Address: [address] [place] [address] Performed By: #### 5 5454-3 #### [facility] CLIA [id number] [address] [place] [address] [place] #### 33510-5 #### [facility] CLIA [id number] [address] [place] [address] [place] Glucose Test strip (U) [Mass/Vol] 3+ Abnormal Negative [facility] Comment on above: Order Comment: Speci men Type: BLOOD SPECIMEN Ordering Facility: [facility] Address: [address] [place] [address] Performed By: #### 5 5454-3 #### [facility] CLIA [id number] [address] [place] [address] [place] #### 05149-9 #### [facility] CLIA [id number] [address] [place] [address] [place] Granular casts (Urine sed) [#/Area] 4-10 /LPF Abnormal 0 /LPF [facility] Comment on above: Order Comment: Speci men Type: BLOOD SPECIMEN Ordering Facility: [facility] Address: [address] [place] [address] Performed By: #### 5 5454-3 #### [facility] CLIA [id number] [address] [place] [address] [place] #### 18944-7 #### [facility] CLIA [id number] [address] [place] [address] [place] Hemoglobin Ql (U) 2+ Abnormal Negative [facility] Comment on above: Order Comment: Speci men Type: BLOOD SPECIMEN Ordering Facility: [facility] Address: [address] [place] [address] Performed By: #### 5 5454-3 #### [facility] CLIA [id number] [address] [place] [address] [place] #### 64042-8 #### [facility] CLIA [id number] [address] [place] [address] [place] Ketones Ql (U) 2+ Abnormal Negative [facility] Comment on above: Order Comment: Speci men Type: BLOOD SPECIMEN Ordering Facility: [facility] Address: [address] [place] [address] Performed By: #### 5 5454-3 #### [facility] CLIA [id number] [address] [place] [address] [place] #### 83200-1 #### [facility] CLIA [id number] [address] [place] [address] [place] Leukocyte esterase Test strip Ql (U) Negative Normal Negative [facility] Comment on above: Order Comment: Speci men Type: BLOOD SPECIMEN Ordering Facility: [facility] Address: [address] [place] [address] Performed By: #### 5 5454-3 #### [facility] CLIA [id number] [address] [place] [address] [place] #### 34796-2 #### [facility] CLIA [id number] [address] [place] [address] [place] Nitrite Ql (U) Negative Normal Negative [facility] Comment on above: Order Comment: Speci men Type: BLOOD SPECIMEN Ordering Facility: [facility] Address: [address] [place] [address] Performed By: #### 5 5454-3 #### [facility] CLIA [id number] [address] [place] [address] [place] #### 97895-0 #### [facility] CLIA [id number] [address] [place] [address] [place] pH (U) 5.0 [pH] Normal 5.0-8.0 [facility] Comment on above: Order Comment: Speci men Type: BLOOD SPECIMEN Ordering Facility: [facility] Address: [address] [place] [address] Performed By: #### 5 5454-3 #### [facility] CLIA [id number] [address] [place] [address] [place] #### 30259-6 #### [facility] CLIA [id number] [address] [place] [address] [place] Protein (U) [Mass/Vol] 1+ Abnormal Negative [facility] Comment on above: Order Comment: Speci men Type: BLOOD SPECIMEN Ordering Facility: [facility] Address: [address] [place] [address] Performed By: #### 5 5454-3 #### [facility] CLIA [id number] [address] [place] [address] [place] #### 27423-7 #### [facility] CLIA [id number] [address] [place] [address] [place] RBC LM.HPF (Urine sed) [#/Area] 0-3 /HPF Normal 0-3 /HPF [facility] Comment on above: Order Comment: Speci men Type: BLOOD SPECIMEN Ordering Facility: [facility] Address: [address] [place] [address] Performed By: #### 5 5454-3 #### [facility] CLIA [id number] [address] [place] [address] [place] #### 58922-7 #### [facility] CLIA [id number] [address] [place] [address] [place] Specific gravity (U) [Rel density] 1.021 Normal 1.005-1.030 [facility] Comment on above: Order Comment: Speci men Type: BLOOD SPECIMEN Ordering Facility: [facility] Address: [address] [place] [address] Performed By: #### 5 5454-3 #### [facility] CLIA [id number] [address] [place] [address] [place] #### 66914-9 #### [facility] CLIA [id number] [address] [place] [address] [place] Urobilinogen Ql (U) Negative Normal Negative [facility] Comment on above: Order Comment: Speci men Type: BLOOD SPECIMEN Ordering Facility: [facility] Address: [address] [place] [address] Performed By: #### 5 5454-3 #### [facility] CLIA [id number] [address] [place] [address] [place] #### 77808-2 #### [facility] CLIA [id number] [address] [place] [address] [place] WBC LM.HPF (Urine sed) [#/Area] 0-5 /HPF Normal 0-5 /HPF [facility] Comment on above: Order Comment: Speci men Type: BLOOD SPECIMEN Ordering Facility: [facility] Address: [address] [place] [address] Performed By: #### 5 5454-3 #### [facility] CLIA [id number] [address] [place] [address] [place] #### 84613-0 #### [facility] CLIA [id number] [address] [place] [address] [place] XR ABDOMEN 1V SUPINEon 02-06 XR ABDOMEN 1V SUPINE * * *Final Report* * * DATE OF EXAM: Feb 07 2024 7:06AM RHX 5289 - XR ABDOMEN 1V SUPINE / PROCEDURE REASON: Evaluate tube, line or lead position * * * * Physician Interpretation * * * * EXAMINATION: CHEST RADIOGRAPH (PORTABLE SINGLE VIEW AP) Exam Date/Time: 02/07/2024 7:06 AM CLINICAL HISTORY: Evaluate tube, line, or lead position (accession [id number]), Evaluate tube, line or lead position (accession [id number]) MQ: XCPR_5 Comparison: 02/07/2024 RESULT: Lines, tubes, and devices: The tip of endotracheal tube is estimated at about 7 cm above the aditya. Enteric tube is present which reaches the stomach. Lungs and pleura: The vascularity is not congested. Mild left perihilar atelectasis. No pneumothorax or significant pleural fluid. Cardiomediastinal silhouette: Stable cardiomediastinal silhouette. Other: . IMPRESSION: Mild left perihilar atelectasis. Life support devices positioned as described. KUB OF THE ABDOMEN: INDICATION: Evaluate tubes, line, or lead position FINDINGS: The enteric tube terminates within the proximal stomach. No dilated bowel loops. IMPRESSION: The enteric tube terminates within the proximal stomach. Journeyman Pipefitter: BOYD Transcribe Date/Time: Feb 07 2024 7:11A Dictated by : RICHARD GARCIAS MD This examination was interpreted and the report reviewed and electronically signed by: RICHARD GARCIAS MD on Feb 07 2024 7:13AM EST [id number] Normal [facility] XR ABDOMEN 1V SUPINE * * *Final Report* * * DATE OF EXAM: Feb 07 2024 1:19AM RHX 5289 - XR ABDOMEN 1V SUPINE / PROCEDURE REASON: Evaluate tube, line or lead position * * * * Physician Interpretation * * * * XR ABDOMEN 1V SUPINE, XR CHEST 1V FRONTAL Technique: XR ABDOMEN 1V SUPINE, XR CHEST 1V FRONTAL Comparison: None Clinical history: Evaluate tube, line or lead position Evaluate tube, line or lead position (accession [id number]), Evaluate tube, line, or lead position (accession [id number]) DISCUSSION: Limited due to portable technique/rotation and motion. Chest: Lines and Tubes: ET tube at the thoracic inlet, approximately 6.5 cm above the aditya. NG tube tip projects over the proximal stomach, side-port in the region of the GE junction. Heart/mediastinum: Stable appearance. Status post median sternotomy and aortic valve prosthesis. Lungs/pleura: No definite consolidation. No effusion or pneumothorax. Abdomen: No dilated bowel in the imaged abdomen. Pelvis is excluded. Other: No acute findings. IMPRESSION: Lines and tubes, as above. Journeyman Pipefitter: BOYD Transcribe Date/Time: Feb 07 2024 2:11A Dictated by : BRANDY ANDERS MD This examination was interpreted and the report reviewed and electronically signed by: BRANDY ANDERS MD on Feb 07 2024 2:17AM EST [id number] [facility] XR CHEST 1V FRONTALon 2023 XR CHEST 1V FRONTAL * * *Final Report* * * DATE OF EXAM: Feb 07 2024 1:19AM RHX 5290 - XR CHEST 1V FRONTAL / PROCEDURE REASON: Evaluate tube, line, or lead position * * * * Physician Interpretation * * * * XR ABDOMEN 1V SUPINE, XR CHEST 1V FRONTAL Technique: XR ABDOMEN 1V SUPINE, XR CHEST 1V FRONTAL Comparison: None Clinical history: Evaluate tube, line or lead position Evaluate tube, line or lead position (accession [id number]), Evaluate tube, line, or lead position (accession [id number]) DISCUSSION: Limited due to portable technique/rotation and motion. Chest: Lines and Tubes: ET tube at the thoracic inlet, approximately 6.5 cm above the aditya. NG tube tip projects over the proximal stomach, side-port in the region of the GE junction. Heart/mediastinum: Stable appearance. Status post median sternotomy and aortic valve prosthesis. Lungs/pleura: No definite consolidation. No effusion or pneumothorax. Abdomen: No dilated bowel in the imaged abdomen. Pelvis is excluded. Other: No acute findings. IMPRESSION: Lines and tubes, as above. Journeyman Pipefitter[facility] Transcribe Date/Time: Feb 07 2024 2:11A Dictated by : BRANDY ANDERS MD This examination was interpreted and the report reviewed and electronically signed by: BRANDY ANDERS MD on Feb 07 2024 2:17AM EST [id number] [facility] XR CHEST 1V FRONTAL PORTon 0 02-07-2024 XR CHEST 1V FRONTAL PORT * * *Final Report* * * DATE OF EXAM: Feb 07 2024 7:06AM [id number] [id number] - XR CHEST 1V FRONTAL PORT / PROCEDURE REASON: Evaluate tube, line, or lead position * * * * Physician Interpretation * * * * EXAMINATION: CHEST RADIOGRAPH (PORTABLE SINGLE VIEW AP) Exam Date/Time: 02/07/2024 7:06 AM CLINICAL HISTORY: Evaluate tube, line, or lead position (accession [id number]), Evaluate tube, line or lead position (accession [id number]) MQ: XCPR_5 Comparison: 02/07/2024 RESULT: Lines, tubes, and devices: The tip of endotracheal tube is estimated at about 7 cm above the aditya. Enteric tube is present which reaches the stomach. Lungs and pleura: The vascularity is not congested. Mild left perihilar atelectasis. No pneumothorax or significant pleural fluid. Cardiomediastinal silhouette: Stable cardiomediastinal silhouette. Other: . IMPRESSION: Mild left perihilar atelectasis. Life support devices positioned as described. KUB OF THE ABDOMEN: INDICATION: Evaluate tubes, line, or lead position FINDINGS: The enteric tube terminates within the proximal stomach. No dilated bowel loops. IMPRESSION: The enteric tube terminates within the proximal stomach. Journeyman Pipefitter: BOYD Transcribe Date/Time: Feb 07 2024 7:11A Dictated by : RICHARD GARCIAS MD This examination was interpreted and the report reviewed and electronically signed by: RICHARD GARCIAS MD on Feb 07 2024 7:13AM EST [id number] Normal [facility] aPTT PPPon 02-07-2024 aPTT Coag (PPP) [Time] 25.0 s Normal 23.0-32.4 [facility] Comment on above: Order Comment: Moses burton Type: VENOUS BLOOD SPECIMEN Ordering Facility: [facility] Address: [address] [place] [address] Performed By: #### 2 4344-4 #### [facility] CLIA [id number] [address] [place] [address] [place] B-HYDROXYBUTYRATEon 02-06-20 24 Beta hydroxybutyrate [Moles/Vol] >6.00 High 0.02-0.27 [facility] Comment on above: Order Comment: Moses burton Type: BLOOD SPECIMEN Ordering Facility: [facility] Address: [address] [place] [address] Result Comment: Sendyo d ketone levels will vary depending on several factors (for example, food intake, alcohol intake and conditions such as ketoacidosis). Patients should be fasting 12 hours prior to collection. Patient samples with high levels of M-Protein (i.e. Gammopathy) may affect the accuracy of this assay. Performed By: #### [place], [address]-6, 53997-1 #### [facility] CLIA [id number] [address] [place] [address] [place] CBC W Auto Differential pane l (Bld)on 02-06-2024 Basophils (Bld) [#/Vol] 0.08 10*3/uL Normal <0.11 [facility] Comment on above: Order Comment: Speci men Type: BLOOD SPECIMEN Ordering Facility: [facility] Address: [address] [place] [address] Performed By: #### 5 5454-3 #### [facility] CLIA [id number] [address] [place] [address] [place] #### 03374-1 #### [facility] CLIA [id number] [address] [place] [address] [place] Basophils/100 WBC (Bld) 0.7 % Normal [facility] Comment on above: Order Comment: Speci men Type: BLOOD SPECIMEN Ordering Facility: [facility] Address: [address] [place] [address] Performed By: #### 5 5454-3 #### [facility] CLIA [id number] [address] [place] [address] [place] #### 44518-2 #### [facility] CLIA [id number] [address] [place] [address] [place] Differential cell count method Nom (Bld) Auto Normal [facility] Comment on above: Order Comment: Speci men Type: BLOOD SPECIMEN Ordering Facility: [facility] Address: [address] [place] [address] Performed By: #### 5 5454-3 #### [facility] CLIA [id number] [address] [place] [address] [place] #### 87794-6 #### [facility] CLIA [id number] [address] [place] [address] [place] Eosinophils (Bld) [#/Vol] 10*3/uL Normal <0.46 [facility] Comment on above: Order Comment: Speci men Type: BLOOD SPECIMEN Ordering Facility: [facility] Address: [address] [place] [address] Performed By: #### 5 5454-3 #### [facility] CLIA [id number] [address] [place] [address] [place] #### 21728-0 #### [facility] CLIA [id number] [address] [place] [address] [place] Eosinophils/100 WBC (Bld) 0.2 % Normal [facility] Comment on above: Order Comment: Speci men Type: BLOOD SPECIMEN Ordering Facility: [facility] Address: [address] [place] [address] Performed By: #### 5 5454-3 #### [facility] CLIA [id number] [address] [place] [address] [place] #### 93147-4 #### [facility] CLIA [id number] [address] [place] [address] [place] Erythrocyte distribution width (RBC) [Ratio] 14.8 % Normal 11.5-15.0 [facility] Comment on above: Order Comment: Speci men Type: BLOOD SPECIMEN Ordering Facility: [facility] Address: [address] [place] [address] Performed By: #### 5 5454-3 #### [facility] CLIA [id number] [address] [place] [address] [place] #### 40393-2 #### [facility] CLIA [id number] [address] [place] [address] [place] Hematocrit (Bld) [Volume fraction] 43.5 % Normal 39.0-51.0 [facility] Comment on above: Order Comment: Speci men Type: BLOOD SPECIMEN Ordering Facility: [facility] Address: [address] [place] [address] Performed By: #### 5 5454-3 #### [facility] CLIA [id number] [address] [place] [address] [place] #### 26710-0 #### [facility] CLIA [id number] [address] [place] [address] [place] Hemoglobin (Bld) [Mass/Vol] 14.4 g/dL Normal 13.0-17.0 [facility] Comment on above: Order Comment: Speci men Type: BLOOD SPECIMEN Ordering Facility: [facility] Address: [address] [place] [address] Performed By: #### 5 5454-3 #### [facility] CLIA [id number] [address] [place] [address] [place] #### 72944-4 #### [facility] CLIA [id number] [address] [place] [address] [place] Immature granulocytes (Bld) [#/Vol] 0.20 10*3/uL High <0.10 [facility] Comment on above: Order Comment: Speci men Type: BLOOD SPECIMEN Ordering Facility: [facility] Address: [address] [place] [address] Performed By: #### 5 5454-3 #### [facility] CLIA [id number] [address] [place] [address] [place] #### 38221-3 #### [facility] CLIA [id number] [address] [place] [address] [place] Immature granulocytes/100 WBC (Bld) 1.8 % Normal [facility] Comment on above: Order Comment: Speci men Type: BLOOD SPECIMEN Ordering Facility: [facility] Address: [address] [place] [address] Performed By: #### 5 5454-3 #### [facility] CLIA [id number] [address] [place] [address] [place] #### 35194-7 #### [facility] CLIA [id number] [address] [place] [address] [place] Lymphocytes (Bld) [#/Vol] 1.47 10*3/uL Normal 1.00-4.00 [facility] Comment on above: Order Comment: Speci men Type: BLOOD SPECIMEN Ordering Facility: [facility] Address: [address] [place] [address] Performed By: #### 5 5454-3 #### [facility] CLIA [id number] [address] [place] [address] [place] #### 24834-3 #### [facility] CLIA [id number] [address] [place] [address] [place] Lymphocytes/100 WBC (Bld) 12.9 % Normal [facility] Comment on above: Order Comment: Speci men Type: BLOOD SPECIMEN Ordering Facility: [facility] Address: [address] [place] [address] Performed By: #### 5 5454-3 #### [facility] CLIA [id number] [address] [place] [address] [place] #### 29356-0 #### [facility] CLIA [id number] [address] [place] [address] [place] MCH (RBC) [Entitic mass] 31.2 pg Normal 26.0-34.0 [facility] Comment on above: Order Comment: Speci men Type: BLOOD SPECIMEN Ordering Facility: [facility] Address: [address] [place] [address] Performed By: #### 5 5454-3 #### [facility] CLIA [id number] [address] [place] [address] [place] #### 14978-8 #### [facility] CLIA [id number] [address] [place] [address] [place] MCHC (RBC) [Mass/Vol] 33.1 g/dL Normal 30.5-36.0 [facility] Comment on above: Order Comment: Speci men Type: BLOOD SPECIMEN Ordering Facility: [facility] Address: [address] [place] [address] Performed By: #### 5 5454-3 #### [facility] CLIA [id number] [address] [place] [address] [place] #### 15376-7 #### [facility] CLIA [id number] [address] [place] [address] [place] MCV (RBC) [Entitic vol] 94.4 fL Normal 80.0-100.0 [facility] Comment on above: Order Comment: Speci men Type: BLOOD SPECIMEN Ordering Facility: [facility] Address: [address] [place] [address] Performed By: #### 5 5454-3 #### [facility] CLIA [id number] [address] [place] [address] [place] #### 76916-8 #### [facility] CLIA [id number] [address] [place] [address] [place] Monocytes (Bld) [#/Vol] 1.35 10*3/uL High <0.87 [facility] Comment on above: Order Comment: Speci men Type: BLOOD SPECIMEN Ordering Facility: [facility] Address: [address] [place] [address] Performed By: #### 5 5454-3 #### [facility] CLIA [id number] [address] [place] [address] [place] #### 29372-0 #### [facility] CLIA [id number] [address] [place], [place] [address] [place] Monocytes/100 WBC (Bld) 11.8 % Normal [facility] Comment on above: Order Comment: Speci men Type: BLOOD SPECIMEN Ordering Facility: [facility] Address: [address] [place] [address] Performed By: #### 5 5454-3 #### [facility] CLIA [id number] [address] [place] [address] [place] #### 68249-0 #### [facility] CLIA [id number] [address] [place] [address] [place] Neutrophils (Bld) [#/Vol] 8.29 10*3/uL High 1.45-7.50 [facility] Comment on above: Order Comment: Speci men Type: BLOOD SPECIMEN Ordering Facility: [facility] Address: [address] [place] [address] Performed By: #### 5 5454-3 #### [facility] CLIA [id number] [address] [place] [address] [place] #### 65606-0 #### [facility] CLIA [id number] [address] [place] [address] [place] Neutrophils/100 WBC (Bld) 72.6 % Normal [facility] Comment on above: Order Comment: Speci men Type: BLOOD SPECIMEN Ordering Facility: [facility] Address: [address] [place] [address] Performed By: #### 5 5454-3 #### [facility] CLIA [id number] [address] [place] [address] [place] #### 50538-2 #### [facility] CLIA [id number] [address] [place] [address] [place] Nucleated RBC (Bld) [#/Vol] 10*3/uL Normal <0.01 [facility] Comment on above: Order Comment: Speci men Type: BLOOD SPECIMEN Ordering Facility: [facility] Address: [address] [place] [address] Performed By: #### 5 5454-3 #### [facility] CLIA [id number] [address] [place] [address] [place] #### 04238-9 #### [facility] CLIA [id number] [address] [place] [address] [place] Nucleated RBC/100 WBC (Bld) [Ratio] 0.0 /[address] [facility] Comment on above: Order Comment: Speci men Type: BLOOD SPECIMEN Ordering Facility: [facility] Address: [address] [place] [address] Performed By: #### 5 5454-3 #### [facility] CLIA [id number] [address] [place] [address] [place] #### 64188-0 #### [facility] CLIA [id number] [address] [place] [address] [place] Platelet mean volume (Bld) [Entitic vol] 9.8 fL Normal 9.0-12.7 [facility] Comment on above: Order Comment: Speci men Type: BLOOD SPECIMEN Ordering Facility: [facility] Address: [address] [place] [address] Performed By: #### 5 5454-3 #### [facility] CLIA [id number] [address] [place] [address] [place] #### 03364-4 #### [facility] CLIA [id number] [address] [place] [address] [place] Platelets (Bld) [#/Vol] 256 10*3/uL Normal 150-400 [facility] Comment on above: Order Comment: Speci men Type: BLOOD SPECIMEN Ordering Facility: [facility] Address: [address] [place] [address] Performed By: #### 5 5454-3 #### [facility] CLIA [id number] [address] [place] [address] [place] #### 77667-3 #### [facility] CLIA [id number] [address] [place] [address] [place] RBC (Bld) [#/Vol] 4.61 10*6/uL Normal 4.20-6.00 [facility] Comment on above: Order Comment: Speci men Type: BLOOD SPECIMEN Ordering Facility: [facility] Address: [address] [place] [address] Performed By: #### 5 5454-3 #### [facility] CLIA [id number] [address] [place] [address] [place] #### 88783-6 #### [facility] CLIA [id number] [address] [place] [address] [place] WBC (Bld) [#/Vol] 11.41 10*3/uL High 3.70-11.00 [facility] Comment on above: Order Comment: Speci men Type: BLOOD SPECIMEN Ordering Facility: [facility] Address: [address] [place] [address] Performed By: #### 5 5454-3 #### [facility] CLIA [id number] [address] [place] [address] [place] #### 80948-1 #### [facility] CLIA [id number] [address] [place] [address] [place] Comprehensive metabolic 2000 panelon 02-06-2024 Albumin [Mass/Vol] 3.4 g/dL Normal 3.2-5.0 [facility] Comment on above: Order Comment: Speci men Type: BLOOD SPECIMEN Ordering Facility: [facility] Address: [address] [place] [address] Performed By: #### B HB, , #### [facility] CLIA [id number] [address] [id number] [place] ALP [Catalytic activity/Vol] 129 U/L High 45-117 [facility] Comment on above: Order Comment: Speci men Type: BLOOD SPECIMEN Ordering Facility: [facility] Address: [address] [place] [address] Performed By: #### B HB, , #### [facility] CLIA [id number] [address] [id number] [place] ALT [Catalytic activity/Vol] 25 U/L Normal 13-61 [facility] Comment on above: Order Comment: Speci men Type: BLOOD SPECIMEN Ordering Facility: [facility] Address: [address] [place] [address] Result Comment: Resu lts may be falsely depressed after the administration of Sulfasalazine and/or Sulfapyridine. Performed By: #### B HB, , #### [facility] CLIA [id number] [address] [place] [address] [place] Anion gap [Moles/Vol] 27 mmol/L High 5-16 [facility] Comment on above: Order Comment: Speci men Type: BLOOD SPECIMEN Ordering Facility: [facility] Address: [address] [place] [address] Performed By: #### B HB, , #### [facility] CLIA [id number] [address] [place], [place] [address] [place] AST [Catalytic activity/Vol] 28 U/L Normal 8-34 [facility] Comment on above: Order Comment: Speci men Type: BLOOD SPECIMEN Ordering Facility: [facility] Address: [address] [place] [address] Result Comment: Resu lts may be falsely depressed after the administration of Sulfasalazine and/or Sulfapyridine. Performed By: #### B HB, , #### [facility] CLIA [id number] [address] [place] [address] [place] Bilirubin [Mass/Vol] 0.8 mg/dL Normal 0.2-1.0 [facility] Comment on above: Order Comment: Speci men Type: BLOOD SPECIMEN Ordering Facility: [facility] Address: [address] [place] [address] Performed By: #### B HB, , #### [facility] CLIA [id number] [address] [place], [place] [address] [place] Calcium [Mass/Vol] 9.9 mg/dL Normal 8.5-10.5 [facility] Comment on above: Order Comment: Speci men Type: BLOOD SPECIMEN Ordering Facility: [facility] Address: [address] [place] [address] Performed By: #### B HB, , #### [facility] CLIA [id number] [address] [place], [place] [address] [place] Chloride [Moles/Vol] 97 mmol/L Low 98-107 [facility] Comment on above: Order Comment: Speci men Type: BLOOD SPECIMEN Ordering Facility: [facility] Address: [address] [place] [address] Performed By: #### B HB, , #### [facility] CLIA [id number] [address] [place], [place] [address] [place] CO2 [Moles/Vol] 5 mmol/L Low 21-32 [facility] Comment on above: Order Comment: Speci men Type: BLOOD SPECIMEN Ordering Facility: [facility] Address: [address] [place] [address] Performed By: #### B HB, , #### [facility] CLIA [id number] [address] [place] [address] [place] Creatinine [Mass/Vol] 1.10 mg/dL Normal 0.50-1.40 [facility] Comment on above: Order Comment: Moses burton Type: BLOOD SPECIMEN Ordering Facility: [facility] Address: [address] [place] [address] Result Comment: Desiree ents receiving either N-Acetylcysteine (NAC) or Metamizole prior to venipuncture, may have falsely depressed results. Performed By: #### B HB, , #### [facility] CLIA [id number] [address] [place] [address] [place] Creatinine and Glomerular filtration rate.predicted panel (S/P/Bld) 85 mL/min/1.73m??? Normal >=60 [facility] Comment on above: Order Comment: Moses burton Type: BLOOD SPECIMEN Ordering Facility: [facility] Address: [address] [place] [address] Result Comment: Rosanna mated Glomerular Filtration Rate (eGFR) is calculated using the 2020 CKD-EPI creatinine equation. This equation utilizes serum creatinine, sex, and age as parameters. The creatinine assay has traceable calibration to isotope dilution-mass spectrometry. Refer to KDIGO guidelines for clinical interpretation. In patients with unstable renal function, e.g. those with acute kidney injury, the eGFR may not accurately reflect actual GFR. Performed By: #### B HB, , #### [facility] CLIA [id number] [address] [place] [address] [place] Glucose [Mass/Vol] 556 mg/dL High 70-100 [facility] Comment on above: Order Comment: Moses burton Type: BLOOD SPECIMEN Ordering Facility: [facility] Address: [address] [id number] Result Comment: The [place] [employer] (ADA) provides guidance for cutoff values for fasting glucose and random glucose. The ADA defines fasting as no caloric intake for at least 8 hours. Fasting plasma glucose results between 100 to 125 mg/dL indicate increased risk for diabetes (prediabetes). Fasting plasma glucose results greater than or equal to 126 mg/dL meet the criteria for diagnosis of diabetes. In the absence of unequivocal hyperglycemia, results should be confirmed by repeat testing. In a patient with classic symptoms of hyperglycemia or hyperglycemic crisis, random plasma glucose results greater than or equal to 200 mg/dL meet the criteria for diagnosis of diabetes. Reference: Standards of Medical Care in Diabetes 2016, [place] [employer]. Diabetes Care. 2016.39(Suppl 1). CRITICAL Results may be falsely elevated after the administration of Sulfapyridine. Results may be falsely depressed after the administration of Sulfasalazine. Performed By: #### B HB, 71090-6, 02050-9 #### [facility] CLIA [id number] [address] [place], [place] [address] [place] Potassium [Moles/Vol] 6.0 mmol/L High 3.5-5.1 [facility] Comment on above: Order Comment: Speci men Type: BLOOD SPECIMEN Ordering Facility: [facility] Address: [address] [place] [address] Result Comment: CRIT ICAL Performed By: #### B HB, , 42954-8 #### [facility] CLIA [id number] [address] [place] [address] [place] Protein [Mass/Vol] 6.4 g/dL Normal 6.0-8.5 [facility] Comment on above: Order Comment: Speci men Type: BLOOD SPECIMEN Ordering Facility: [facility] Address: [address] [place] [address] Performed By: #### B HB, , 12740-2 #### [facility] CLIA [id number] [address] [place], [place] [address] [place] Sodium [Moles/Vol] 129 mmol/L Low 136-145 [facility] Comment on above: Order Comment: Speci men Type: BLOOD SPECIMEN Ordering Facility: [facility] Address: [address] [place] [address] Performed By: #### B HB, , 36134-9 #### [facility] CLIA [id number] [address] [place] [address] [place] Urea nitrogen [Mass/Vol] 14 mg/dL Normal 7-26 [facility] Comment on above: Order Comment: Speci men Type: BLOOD SPECIMEN Ordering Facility: [facility] Address: [address] [place] [address] [place] [id number] Performed By: #### B , 69532-4, 02708-8 #### [facility] CLIA [id number] [address] [place] [address] [facility] [place] ECG COMPLETEon 02-06-2024 ECG COMPLETE Ventricular Rate : 1 07 BPM Atrial Rate : 107 BPM P-R Interval : 146 ms QRS Duration : 94 ms Q-T Interval : 358 ms QTC Calculation(Bazett) : 477 ms Calculated P [place] : 72 degrees Calculated R [place] : 89 degrees Calculated T [place] : 44 degrees Sinus tachycardia Possible Left atrial enlargement Borderline ECG No previous ECGs available Confirmed by AMARJIT JONES MD ([id number]) on 02/07/2024 5:12:58 PM NAME : LUISITO ZHONG PID : [id number] : 1980 Gender : Male Race : Unknown ORD : [id number] Procedure Date : Feb 06 2024 20:23:22 Edit Date : Feb 07 2024 17:13:00 Diagnosis: Sinus tachycardia Possible Left atrial enlargement Borderline ECG No previous ECGs available Confirmed by AMARJIT JONES MD ([id number]) on 02/07/2024 5:12:58 PM Test Reason : stat Location : 0 : ED [id number] Overread By : AMARJIT JONES MD Edited By : AMARJIT JONES MD Referred By : , Acquired by : [id number], [facility] ED NOTEon 02-06-2024 ED NOTE HNO ID: [id number] Author: JOSELINE ALMENDAREZ RN Service: Emergency Medicine Author Type: Registered Nurse Type: ED Notes Filed: 02/06/2024 20:13 Note Text: Pt blood sugar 549 [facility] ED NOTE HNO ID: [id number] Author: LEROY THOMSON RN Service: ? Author Type: Registered Nurse Type: ED Notes Filed: 02/06/2024 19:54 Note Text: Bed: 42-ED Expected date: Expected time: Means of arrival: Comments: [facility] ED PROV NOTEon 02-06-2024 ED PROV NOTE HNO ID: [id number] Author: GUNNAR, WALTER, DO Service: Emergency Medicine Author Type: Physician Type: ED Provider Notes Filed: 02/06/2024 23:27 Note Text: ED Provider Note Patient Name: Luisito Zhong : 1980 SERVICE DATE: 02/06/24 History Patient presents with: Shortness of Breath: Pt c/o SOB, pt confused and restless with Kussmaul respirations and odor of ketones on breath. Pt state is diabetic and has insulin pump with belongings but not attached to pt. 43-year-old male with history of diabetes presented emergency department with complaints of shortness of breath. Per EMS patient having increased work of breathing. Patient is confused and altered unable to provide much history. He was able to note that he is a diabetic and has insulin pump with his belongings but has not attached to patient upon arrival. He denies any associated chest pain, nausea, vomiting or abdominal pain. At this time additional history is very limited No past medical history on file. No past surgical history on file. No family history on file. Social History Tobacco Use Smoking status: Not on file Smokeless tobacco: Not on file Substance and Sexual Activity Alcohol use: Not on file Drug use: Not on file Sexual activity: Not on file ALLERGIES No Known Allergies Review of Systems Unable to perform ROS: Acuity of condition Physical Exam Vitals [02/06/241944] BP Pulse Temp Temp src Resp SpO2 Weight Height 113/58 (!) 114 36.7 ?C (98.1 ?F) Oral (!) 42 99 % 89.1 kg (196 lb 6.9 oz) -- Physical Exam Vitals and nursing note reviewed. Constitutional: General: He is in acute distress. Appearance: He is ill-appearing. HENT: Head: Normocephalic and atraumatic. Mouth/Throat: Mouth: Mucous membranes are dry. Eyes: Conjunctiva/sclera: Conjunctivae normal. Cardiovascular: Rate and Rhythm: Normal rate and regular rhythm. Pulmonary: Effort: Respiratory distress present. Breath sounds: No stridor. No wheezing, rhonchi or rales. Comments: Increased work of breathing. Tachypneic. Lungs are clear bilaterally Abdominal: General: Bowel sounds are normal. Palpations: Abdomen is soft. Tenderness: There is no abdominal tenderness. There is no guarding or rebound. Musculoskeletal: Right lower leg: No edema. Left lower leg: No edema. Skin: General: Skin is warm and dry. Neurological: General: No focal deficit present. Mental Status: He is alert. Comments: Alert but seems confused. After repeated questioning able to follow simple commands. Strength/tone and sensation is grossly intact in all extremities. No facial droop. Psychiatric: Mood and Affect: Mood normal. Thought Content: Thought content normal. Diagnostic Testing ED Labs Ordered and Reviewed COMPREHENSIVE METABOLIC PANEL - Abnormal; Notable for the following components: Result Value Ref Range Alkaline Phosphatase 129 (*) 45 - 117 U/L Glucose 556 (*) 70 - 100 mg/dL Sodium 129 (*) 136 - 145 mmol/L Potassium 6.0 (*) 3.5 - 5.1 mmol/L Chloride 97 (*) 98 - 107 mmol/L CO2 5 (*) 21 - 32 mmol/L Anion Gap 27 (*) 5 - 16 mmol/L All other components within normal limits COMPLETE BLOOD COUNT AND DIFFERENTIAL - Abnormal; Notable for the following components: WBC 11.41 (*) 3.70 - 11.00 k/uL Abs Neut 8.29 (*) 1.45 - 7.50 k/uL Abs Kerr 1.35 (*) <0.87 k/uL Abs Immature Gran 0.20 (*) <0.10 k/uL All other components within normal limits HIGH SENSITIVITY TROPONIN I (INITIAL) - Abnormal; Notable for the following components: Troponin I High Sensitivty 89.2 (*) 0.0 - 54.0 pg/mL All other components within normal limits NT PRO BNP - Abnormal; Notable for the following components: NT Pro BNP 1,001 (*) <125 pg/mL All other components within normal limits VENOUS BLOOD GASES - Abnormal; Notable for the following components: pH, Venous 7.13 (*) 7.32 - 7.42 pCO2, Venous 20 (*) 42 - 55 mmHg pO2, Venous 32 (*) 35 - 45 mmHg Base Deficit, Venous -21 (*) -2 - 0 mmol/L Bicarbonate, Venous 6 (*) 24 - 28 mmol/L Sodium, Whole Blood 130 (*) 136 - 144 mmol/L Potassium, Whole Blood 6.2 (*) 2.5 - 6.0 mmol/L Glucose, Whole Blood 555 (*) 60 - 105 mg/dL Lactate 4.7 (*) 0.5 - 2.2 mmol/L All other components within normal limits B-HYDROXYBUTYRATE - Abnormal; Notable for the following components: B-Hydroxybutyrate >6.00 (*) 0.02 - 0.27 mmol/L All other components within normal limits URINALYSIS WITH MICROSCOPIC, REFLEX CULTURE - Abnormal; Notable for the following components: Glucose, Urine 3+ (*) Negative Ketones, Urine 2+ (*) Negative Hemoglobin/Blood,Ur 1+ (*) Negative Leuk Esterase 2+ (*) Negative Bacteria Rare (*) None Seen /HPF All other components within normal limits MAGNESIUM - Normal GLUCOSE - ED(POC) TOXICOLOGY SCREEN, ROUTINE URINE HIGH SENSITIVITY TROPONIN I (SECOND) COVID AND INFLUENZA A/B AND RSV NAAT, EXPEDITED Procedures ED Course / Clinical Impressio (more content not included)... Normal [facility] FLUABV+SARS-CoV-2+RSV Pnl Re sp VAISHALI+probeon 02-06-2024 FLUABV+SARS-CoV-2+RS V Pnl Resp VAISHALI+probe COVID 19 RESULT: Not detected The method used is RT-PCR or an equivalent NAAT method. Reference Range(the expected result in uninfected individuals): Not detected INFLUENZA A PCR: Not detected INFLUENZA B PCR: Not detected RSV PCR: Not detected Normal [facility] Comment on above: Performed By: #### 6 0566-7, 08864-1 ####[facility]ORATORYCLIA [id number] [address] [place] Gas and Carbon monoxide pane l (BldV)on 02-06-2024 BASE DEFICIT, VENOUS -25 mmol/L Low -2-0 [facility] Comment on above: Order Comment: Speci men Type: VENOUS BLOOD SPECIMENOrdering Facility: [facility] Address: [address] [id number] Performed By: #### 2 4344-4 ####[facility] THERAPYCLIA [id number] [address] [place] Body temperature 98.06 [degF] Normal [facility] Comment on above: Order Comment: Speci men Type: VENOUS BLOOD SPECIMENOrdering Facility: [facility] Address: [address] [place] [address] Performed By: #### 2 4344-4 ####[facility] RES[facility] THERAPYCLIA [id number] [address] OF [facility] Calcium.ionized (Bld) [Mass/Vol] 1.21 mmol/L Normal 1.08-1.30 [facility] Comment on above: Order Comment: Speci men Type: VENOUS BLOOD SPECIMENOrdering Facility: [facility] Address: [address] [place] [address] Performed By: #### 2 4344-4 ####[facility] RES[facility] THERAPYCLIA [id number] [place] [address] [place] Calcium.ionized adjusted to pH 7.4 (BldA) [Moles/Vol] Normal [facility] Comment on above: Order Comment: Speci men Type: VENOUS BLOOD SPECIMENOrdering Facility: [facility] Address: [address] [place] [address] Result Comment: Jake ured pH is <7.20. Unable to report normalized Calcium. Performed By: #### 2 4344-4 ####[facility]IR[facility] THERAPYCLIA [id number] [address] [place] Carboxyhemoglobin (BldV) [Mass fraction] 0.3 % Normal 0.0-2.0 [facility] Comment on above: Order Comment: Speci men Type: VENOUS BLOOD SPECIMENOrdering Facility: [facility] Address: [address] [place] [address] Result Comment: Carb oxyhemoglobin Reference Range for Smokers: 2.0-8.0% Performed By: #### 2 4344-4 ####[facility] RES[facility] THERAPYCLIA [id number] [address] [place] CO2 (BldV) [Partial pressure] 15 mm[Hg] Low 42-55 [facility] Comment on above: Order Comment: Speci men Type: VENOUS BLOOD SPECIMENOrdering Facility: [facility] Address: [address] [place] [address] Performed By: #### 2 4344-4 ####[facility] RESPIRATORY THERAPYCLIA [id number] [address] [place] CO2 adjusted to patient's actual temperature (BldV) [Partial pressure] Normal [facility] Comment on above: Order Comment: Speci men Type: VENOUS BLOOD SPECIMENOrdering Facility: [facility] Address: [address] [place] [address] Performed By: #### 2 4344-4 ####[facility] RESPIRATORY THERAPYCLIA [id number] [place] [address] [place] Glucose [Mass/Vol] 559 mg/dL High 60-105 [facility] Comment on above: Order Comment: Speci men Type: VENOUS BLOOD SPECIMENOrdering Facility: [facility] Address: [address] [place] [address] Performed By: #### 2 4344-4 ####[facility] RESPIRAT[facility] THERAPYCLIA [id number] [place] [address] [place] HCO3 (Bld) [Moles/Vol] 4 mmol/L Low 24-28 [facility] Comment on above: Order Comment: Speci men Type: VENOUS BLOOD SPECIMENOrdering Facility: [facility] Address: [address] [place] [address] Performed By: #### 2 4344-4 ####[facility] THERAPYCLIA [id number] [place] [address] [place] Hemoglobin (Bld) [Mass/Vol] 14.1 g/dL Normal 13.0-17.0 [facility] Comment on above: Order Comment: Speci men Type: VENOUS BLOOD SPECIMENOrdering Facility: [facility] Address: [address] [place] [address] Performed By: #### 2 4344-4 ####[facility] RESPIRAT[facility] THERAPYCLIA [id number] [place] [address] [place] Lactate [Moles/Vol] 6.3 mmol/L High 0.5-2.2 [facility] Comment on above: Order Comment: Speci men Type: VENOUS BLOOD SPECIMENOrdering Facility: [facility] Address: [address] [place] [address] Performed By: #### 2 4344-4 ####[facility] THERAPYCLIA [id number] [place] [address] [place] Methemoglobin (Bld) [Mass fraction] 0.1 % Normal 0.0-1.5 [facility] Comment on above: Order Comment: Speci men Type: VENOUS BLOOD SPECIMENOrdering Facility: [facility] Address: [address] [place] [address] Performed By: #### 2 4344-4 ####[facility] THERAPYCLIA [id number] [address] [place] O2 THERAPY RA=Room Air Normal [facility] Comment on above: Order Comment: Speci men Type: VENOUS BLOOD SPECIMENOrdering Facility: [facility] Address: [address] [place], [place] [address] Performed By: #### 2 4344-4 ####[facility] THERAPYCLIA [id number] [place] [address] [place] Oxygen (BldV) [Partial pressure] 68 mm[Hg] High 35-45 [facility] Comment on above: Order Comment: Speci men Type: VENOUS BLOOD SPECIMENOrdering Facility: [facility] Address: [address] [place] [address] Performed By: #### 2 4344-4 ####[facility] THERAPYCLIA [id number] [place] [id number] [facility] [place] Oxygen adjusted to patient's actual temperature (BldV) [Partial pressure] Normal [facility] Comment on above: Order Comment: Speci men Type: VENOUS BLOOD SPECIMENOrdering Facility: [facility] Address: [address] [place] [address] Performed By: #### 2 4344-4 ####[facility] THERAPYCLIA [id number] [place] [id number] [place] Oxyhemoglobin (BldV) [Mass fraction] 87 % Normal 4-98 [facility] Comment on above: Order Comment: Speci men Type: VENOUS BLOOD SPECIMENOrdering Facility: [facility] Address: [address] [place] [address] Performed By: #### 2 4344-4 ####[facility] TH[facility]CL[facility] [id number] [place] [address] [place] pH (BldV) 7.03 [pH] Critically low 7.32-7.42 [facility] Comment on above: Order Comment: Speci men Type: VENOUS BLOOD SPECIMENOrdering Facility: [facility] Address: [address] [place] [address] Performed By: #### 2 4344-4 ####[facility] RES[facility]IRAT[facility] THERAPYCLIA [id number] [address] [place] pH adjusted to patient's actual temperature (BldV) Normal [facility] Comment on above: Order Comment: Speci men Type: VENOUS BLOOD SPECIMENOrdering Facility: [facility] Address: [address] [place] [address] Performed By: #### 2 4344-4 ####[facility] THERAPYCLIA [id number] [place] [address] [place] Potassium [Moles/Vol] 5.7 mmol/L Normal 2.5-6.0 [facility] Comment on above: Order Comment: Speci men Type: VENOUS BLOOD SPECIMENOrdering Facility: [facility] Address: [address] [place] [address] Performed By: #### 2 4344-4 ####[facility] THERAPYCLIA [id number] [place] [address] [place] Sodium [Moles/Vol] 132 mmol/L Low 136-144 [facility] Comment on above: Order Comment: Speci men Type: VENOUS BLOOD SPECIMENOrdering Facility: [facility] Address: [address] [place] [address] Performed By: #### 2 4344-4 ####[facility] THERAPYCL[facility] [id number] [place] [address] [place] BASE DEFICIT, VENOUS -21 mmol/L Low -2-0 [facility] Comment on above: Order Comment: Speci men Type: VENOUS BLOOD SPECIMEN [facility]: [facility] Address: [address] [place] [address] Performed By: #### 2 4344-4 #### [facility] CLIA [id number] [address] [place] [address] Body temperature 98.06 [degF] Normal [facility] Comment on above: Order Comment: Speci men Type: VENOUS BLOOD SPECIMEN [facility]: [facility] Address: [address] [place] [address] Performed By: #### 2 4344-4 #### [facility] THERAPY CLIA [id number] [address] [place] [address] [place] Calcium.ionized (Bld) [Mass/Vol] 1.17 mmol/L Normal 1.08-1.30 [facility] Comment on above: Order Comment: Speci men Type: VENOUS BLOOD SPECIMEN [facility]: [facility] Address: [address] [place] [address] Performed By: #### 2 4344-4 #### [facility] THERAPY CLIA [id number] [address] [place] [address] [place] Calcium.ionized adjusted to pH 7.4 (BldA) [Moles/Vol] Normal [facility] Comment on above: Order Comment: Speci men Type: VENOUS BLOOD SPECIMEN [facility]: [facility] Address: [address] [place] [address] Result Comment: Jake ured pH is <7.20. Unable to report normalized Calcium. Performed By: #### 2 4344-4 #### [facility] CLIA [id number] [address] [place] [address] [place] Carboxyhemoglobin (BldV) [Mass fraction] 0.9 % Normal 0.0-2.0 [facility] Comment on above: Order Comment: Speci men Type: VENOUS BLOOD SPECIMEN [facility] Facility: [facility] Address: [address] [place] [address] Result Comment: Carb oxyhemoglobin Reference Range for Smokers: 2.0-8.0% Performed By: #### 2 4344-4 #### [facility] CLIA [id number] [address] [place] [address] [place] CO2 (BldV) [Partial pressure] 20 mm[Hg] Low 42-55 [facility] Comment on above: Order Comment: Speci men Type: VENOUS BLOOD SPECIMEN [facility]: [facility] Address: [address] [place] [address] Performed By: #### 2 4344-4 #### [facility] CLIA [id number] [address] [place] [address] [place] CO2 adjusted to patient's actual temperature (BldV) [Partial pressure] Normal [facility] Comment on above: Order Comment: Speci men Type: VENOUS BLOOD SPECIMEN [facility]: [facility] Address: [address] [place] [address] Performed By: #### 2 4344-4 #### [facility] THERAPY CLIA [id number] [address] [place] [address] [place] Glucose [Mass/Vol] 555 mg/dL High 60-105 [facility] Comment on above: Order Comment: Speci men Type: VENOUS BLOOD SPECIMEN [facility]: [facility] Address: [address] [place] [address] Performed By: #### 2 4344-4 #### [facility] CLIA [id number] [address] [place] [address] [place] HCO3 (Bld) [Moles/Vol] 6 mmol/L Low 24-28 [facility] Comment on above: Order Comment: Speci men Type: VENOUS BLOOD SPECIMEN [facility]: [facility] Address: [address] [place] [address] Performed By: #### 2 4344-4 #### [facility] CLIA [id number] [address] [place] [address] [place] Hemoglobin (Bld) [Mass/Vol] 15.5 g/dL Normal 13.0-17.0 [facility] Comment on above: Order Comment: Speci men Type: VENOUS BLOOD SPECIMEN [facility]: [facility] Address: [address] [place], [place] [address] Performed By: #### 2 4344-4 #### [facility] CLIA [id number] [address] [place], [place] [address] [place] Lactate [Moles/Vol] 4.7 mmol/L High 0.5-2.2 [facility] Comment on above: Order Comment: Speci men Type: VENOUS BLOOD SPECIMEN [facility] Facility: [facility] Address: [address] [place] [address] [place] [address] Performed By: #### 2 4344-4 #### [facility] CLIA [id number] [address] [place] [address] [place] Methemoglobin (Bld) [Mass fraction] 0.3 % Normal 0.0-1.5 [facility] Comment on above: Order Comment: Speci men Type: VENOUS BLOOD SPECIMEN [facility]ing Facility: [facility] Address: [address] [place] [address] [place] [address] Performed By: #### 2 4344-4 #### [facility] CLIA [id number] [address] [place] [address] [place] O2 THERAPY RA=Room Air Normal [facility] Comment on above: Order Comment: Speci men Type: VENOUS BLOOD SPECIMEN [facility] Facility: [facility] Address: [facility] [place] [address] Performed By: #### 2 4344-4 #### [facility] CLIA [id number] [address] [place] [address] [place] Oxygen (BldV) [Partial pressure] 32 mm[Hg] Low 35-45 [facility] Comment on above: Order Comment: Speci men Type: VENOUS BLOOD SPECIMEN [facility]: [facility] Address: [facility] [place] [address] Performed By: #### 2 4344-4 #### [facility] CLIA [id number] [address] [place] [address] [place] Oxygen adjusted to patient's actual temperature (BldV) [Partial pressure] Normal [facility] Comment on above: Order Comment: Speci men Type: VENOUS BLOOD SPECIMEN [facility]: [facility] Address: [address] [facility] [place] [address] Performed By: #### 2 4344-4 #### [facility] CLIA [id number] [address] [place] [address] [place] Oxyhemoglobin (BldV) [Mass fraction] 50 % Normal 4-98 [facility] Comment on above: Order Comment: Speci men Type: VENOUS BLOOD SPECIMEN [facility]: [facility] Address: [address] [place] [address] Performed By: #### 2 4344-4 #### [facility] CLIA [id number] [address] [place] [address] [place] pH (BldV) 7.13 [pH] Critically low 7.32-7.42 [facility] Comment on above: Order Comment: Speci men Type: VENOUS BLOOD SPECIMEN [facility] Facility: [facility] Address: [address] [place] [address] Performed By: #### 2 4344-4 #### [facility] CLIA [id number] [address] [place] [address] pH adjusted to patient's actual temperature (BldV) Normal [facility] Comment on above: Order Comment: Speci men Type: VENOUS BLOOD SPECIMEN [facility]: [facility] Address: [facility] [place] [address] Performed By: #### 2 4344-4 #### [facility] CLIA [id number] [address] [place] [address] [place] Potassium [Moles/Vol] 6.2 mmol/L Critically high 2.5-6.0 [facility] Comment on above: Order Comment: Speci men Type: VENOUS BLOOD SPECIMEN [facility]: [facility] Address: [address] [place] [address] Performed By: #### 2 4344-4 #### [facility] CLIA [id number] [address] [place] [address] [place] Sodium [Moles/Vol] 130 mmol/L Low 136-144 [facility] Comment on above: Order Comment: Speci men Type: VENOUS BLOOD SPECIMEN [facility]: [facility] Address: [address] [place] [address] Performed By: #### 2 4344-4 #### [facility] THERAP[facility] CLIA [id number] [address] [place] [address] HIGH SENSITIVITY TROPONIN I (INITIAL)on 02-06-2024 Tropinin I.cardiac panel High sensitivity method 89.2 pg/mL High 0.0-54.0 [facility] Comment on above: Order Comment: Speci men Type: BLOOD SPECIMEN [facility]: [facility] Address: [address] [place] [address] Result Comment: CRIT ICAL Performed By: #### L [id number], 72405-9 #### [facility] CLIA [id number] [address] [place] [address] HIGH SENSITIVITY TROPONIN I (SECOND)on 02-06-2024 Tropinin I.cardiac panel High sensitivity method 78.4 pg/mL High 0.0-54.0 [facility] Comment on above: Order Comment: Delfinai men Type: BLOOD SPECIMENOrdering Facility: [facility] Address: [address] [place] [address] Result Comment: CRIT ICAL Performed By: #### H STROPI2 ####[facility]ORYCLIA [id number] [address] OF [facility] HISTORY PHYSICALon HISTORY PHYSICAL HNO ID: [id number] Author: SALTY JOSEPH APRN.SENIOR TECHNICAL ARCHITECT Service: Critical Care Author Type: Nurse Practitioner Type: H&P Filed: 02/07/2024 04:03 Note Text: [facility] DATE: February 06, 2024 SERVICE TIME: 10:43 PM HPI: 43 year old male with PMHx DM I on Insulin Pump presented to ED on 02/05 with SOB, confusion, and restlessness. Patient altered on arrival with Kussmaul respirations. He was unable to provide history due to confusion but he did state that he is a diabetic on insulin pump. The insulin pump was found with his belongings but was not attached to the patient. Lab work showed a sodium 129, potassium 6, bicarb 5, blood glucose 556, anion gap 27, lactic acid 4.7, troponin 89, B-hydroxybutyrate >6, and WBC 11.4. VBG 7.. Urine tox screen positive for cocaine. VBG was repeated 7.03. Lactic was repeated and worsened to 6.3. ICU was consulted for further medical management of DKA and encephalopathy. On arrival, patient was restless in bed, eyes closed, he had mild distress with Kussmaul respirations, and ill appearing. Patient was arousable by voice, open eyes to voice, but was unable to follow commands. Patient was interfering with medical interventions. He will be admitted to ICU for further medical management. PAST MEDICAL HISTORY: SEE CHRONIC ISSSUES:No past medical history on file. No past surgical history on file. No family history on file. HOME MEDICATIONS: No prescriptions on file. INPATIENT MEDICATIONS: Current Facility-Administered Medications Medication Dose Route Frequency lactated ringers 2,000 mL iv bolus 2,000 mL INTRAVENOUS ONCE NaCl 0.9% iv flush bag 20 mL INTRAVENOUS PRN piperacillin-tazobactam iv piggyback 3.375 g in dextrose (iso-osmotic) 50 mL (ZOSYN) 3.375 g INTRAVENOUS ONCE dextrose 40 % 15 g 15 g ORAL PRN Or glucagon 1 mg injection 1 mg INTRAMUSCULAR PRN Or dextrose 10% iv bolus 12.5 g INTRAVENOUS PRN dextrose 5% in LR infusion (D5-LR) 150 mL/hr INTRAVENOUS CONTINUOUS insulin regular human 8.91 Units bolus from bag 0.1 units/kg/dose INTRAVENOUS ONCE insulin regular 100 units in NaCl 0.9% 100 mL - DKA NOMOGRAM 0.5-30 Units/hr INTRAVENOUS CONTINUOUS insulin regular human 2-10 Units bolus from bag 2-10 Units INTRAVENOUS PRN dextrose 10% iv bolus 12.5-25 g INTRAVENOUS PRN lactated ringers 1,000 mL iv bolus 1,000 mL INTRAVENOUS ONCE ALLERGIES: Patient has no known allergies. COMPLETE REVIEW OF SYSTEMS: Review of Systems Unable to perform ROS: Mental status change VITALS: 02/06/24 1945 02/06/24 2114 BP: 113/58 132/74 Pulse: (!) 114 (!) 116 Resp: (!) 42 (!) 38 Temp: 36.7 ?C (98.1 ?F) TempSrc: Oral SpO2: 99% 100% Weight: 89.1 kg (196 lb 6.9 oz) PHYSICAL EXAM: Physical Exam Constitutional: General: He is in acute distress. Appearance: He is ill-appearing. He is not toxic-appearing. HENT: Head: Normocephalic and atraumatic. Mouth/Throat: Mouth: Mucous membranes are dry. Pharynx: Oropharynx is clear. Eyes: Conjunctiva/sclera: Conjunctivae normal. Pupils: Pupils are equal, round, and reactive to light. Cardiovascular: Rate and Rhythm: Regular rhythm. Tachycardia present. Pulses: Normal pulses. Heart sounds: Normal heart sounds. Pulmonary: Effort: Respiratory distress present. Breath sounds: No stridor. Rhonchi present. No wheezing or rales. Comments: Kussmaul's respirations, RR in the 30s Abdominal: General: Bowel sounds are normal. There is no distension. Palpations: Abdomen is soft. Tenderness: There is no abdominal tenderness. There is no guarding or rebound. Musculoskeletal: General: Normal range of motion. Cervical back: Normal range of motion and neck supple. Right lower leg: No edema. Left lower leg: No edema. Skin: General: Skin is warm and dry. Capillary Refill: Capillary refill takes less than 2 seconds. Neurological: Mental Status: He is disoriented. Comments: Eyes opened to voice, able to verbalize intermittently, unable to follow commands, restless, moving all extremities equally Ventilator Settings: ABG: VBG: Recent Labs 02/06/247 02/06/242013 VPC2 15* 20* VPO2C 68* 32* BICARB 4* 6* LACT 6.3* 4.7* Respiratory/Nursing Documentation: O2 Therapy: Room Air (02/06/241944) CXR: CT-Thorax: LABORATORY TESTS: CBC: Recent Labs 02/06/242013 WBC 11.41* HB 14.4 HCT 43.5 PLT 256 COAG: BMP: Recent Labs 02/06/242013 GLUC 556* NA 129* K 6.0* CHLOR 97* CO2 5* ANION 27* BUN 14 CREAT 1.10 CHEM: Recent Labs 02/06/242013 ALB 3.4 TPROT 6.4 CA 9.9 MG 2.1 HEPATIC: Recent Labs 02/06/242013 ALKPHOS 129* ALT 25 AST 28 TBILI 0.8 URINALYSIS: Recent Labs 02/06/242050 SPGR 1.024 UGLUC 3+* UBILI Negative UKET 2+* UHB 1+* UPROT Negative UWBC 0-5 /HPF CARDIAC: Recent Labs 02/06/242013 PBNP 1,001* ASSES (more content not included)... Normal [facility] HbA1c (Bld)on 02-06-2024 Average glucose Estimated from glycated hemoglobin (Bld) [Mass/Vol] 237 mg/dL Normal [facility] Comment on above: Order Comment: Moses burton Type: BLOOD SPECIMEN Ordering Facility: [facility] Address: [address] [place] [address] Result Comment: eAG: (Estimated average glucose) is a calculated value from HgbA1c and is contact representative of the average blood glucose level in the last 2-3 month period. Performed By: #### 5 5454-3 #### [facility] CLIA [id number] [address] [place] [address] [place] #### 23063-4 #### [facility] CLIA [id number] [address] [place] [address] [place] HbA1c (Bld) [Mass fraction] 9.9 % High 4.3-5.6 [facility] Comment on above: Order Comment: Moses burton Type: BLOOD SPECIMEN Ordering Facility: [facility] Address: [address] [place] [address] Result Comment: Amer [place] Diabetes Association guidelines indicate that patients with HgbA1c in the range 5.7-6.4% are at increased risk for development of diabetes, and intervention by lifestyle modification may be beneficial. HgbA1c greater or equal to 6.5% is considered diagnostic of diabetes. Performed By: #### 5 5454-3 #### [facility] CLIA [id number] [address] [place] [address] [place] #### 69643-7 #### [facility] CLIA [id number] [address] [place] [address] [place] Magnesium SerPl-mCncon 02-05 Magnesium [Mass/Vol] 2.1 mg/dL Normal 1.6-2.6 [facility] Comment on above: Order Comment: Speci men Type: BLOOD SPECIMEN Ordering Facility: [facility] Address: [address] [place] [address] Performed By: #### [place], 65636-4, 63497-0 #### [facility] CLIA [id number] [address] [place] [address] NT[facility]proBNP [facility] 02-05 Natriuretic peptide.B prohormone N-Terminal [Mass/Vol] 1001 pg/mL High <125 [facility] Comment on above: Order Comment: Speci [facility] Type: BLOOD SPECIMEN Ordering Facility: [facility] Address: [address] [place] [address] Result Comment: NT-p roBNP results of less than 300 pg/mL likely rules out acute congestive heart failure with 99% predictive value. NOTE: These cutoff points are suggested for ACUTE CHF DIAGNOSIS only Less than 50 years\X09\ Greater than 450 pg/mL 50 - 75 years\X09\\X09\ Greater than 900 pg/mL Greater than 75 years\X09\ Greater than 1800 pg/mL Performed By: #### L QH1325, 92052-5 #### [facility] CLIA [id number] [address] [place] [address] [place] Resp path 12b Pnl Spec VAISHALI+p robeon 02-06-2024 Respiratory pathogens DNA and RNA 12b panel VAISHALI+probe (Unsp spec) ADENOVIRUS: Not detected CORONAVIRUS 229E: Not detected CORONAVIRUS HKU1: Not detected CORONAVIRUS NL63: Not detected CORONAVIRUS OC43: Not detected COVID 19 RESULT: Not detected Reference Range (the expected result in uninfected individuals): Not detected HUMAN METAPNEUMOVIRUS: Not detected RHINOVIRUS/ENTEROVIRUS: Not detected INFLUENZA A VIRUS: Not detected INFLUENZA B VIRUS: Not detected PARAINFLUENZA VIRUS 1: Not detected PARAINFLUENZA VIRUS 2: Not detected PARAINFLUENZA VIRUS 3: Not detected PARAINFLUENZA VIRUS 4: Not detected RESPIRATORY SYNCYTIAL VIRUS: Not detected BORDETELLA PARAPERTUSSIS BY REAL-TIME PCR: Not detected BORDETELLA PERTUSSIS BY REAL-TIME PCR: Not detected CHLAMYDOPHILA PNEUMONIAE: Not detected MYCOPLASMA PNEUMONIAE: Not detected Normal [facility] Comment on above: Performed By: #### 6 0566-7, 90801-0 ####[facility] [id number] [address] [place] SEPSIS LACTATE W/ REFLEX (IN ITIAL)on 02-06-2024 Lactate [Moles/Vol] 6.7 mmol/L High 0.4-2.0 [facility] Comment on above: Order Comment: Speci men Type: BLOOD SPECIMENOrdering Facility: [facility] Address: [address] [place] [address] Result Comment: CRIT ICAL Performed By: #### S LACTR ####[facility] [id number] [address] [place] TOXICOLOGY SCREEN, ROUTINE U RINEon 02-06-2024 Amphetamines Confirm (U) [Mass/Vol] Negative Normal Negative [facility] Comment on above: Order Comment: Speci men Type: URINE SPECIMENOrdering Facility: [facility] Address: [address] [place] [address] Result Comment: Cuto ff threshold at 1000 ng/mL. Performed By: #### U TOX2 ####[facility]IA [id number] [place] [address] [place] BARBITURATES, URINE Negative Normal Negative [facility] Comment on above: Order Comment: Speci men Type: URINE SPECIMENOrdering Facility: [facility] Address: [address] [place] [address] Result Comment: Cuto ff threshold at 200 ng/mL. Performed By: #### U TOX2 ####[facility] [id number] [place] [address] [place] BENZODIAZEPINES, UR Negative Normal Negative [facility] Comment on above: Order Comment: Speci men Type: URINE SPECIMENOrdering Facility: [facility] Address: [address] [place] [address] Result Comment: Cuto ff threshold at 200 ng/mL. Performed By: #### U TOX2 ####[facility]ORY[facility]IA [id number] [address] Cannabinoids Screen Ql (U) Negative Normal Negative [facility] Comment on above: Order Comment: Speci men Type: URINE SPECIMENOrdering Facility: [facility] Address: [address] [place] [address] Result Comment: Cuto ff threshold at 50 ng/mL. Performed By: #### U TOX2 ####[facility]ORY[facility]IA [id number] [place] [address] [place] Cocaine Ql (U) Positive Abnormal Negative [facility] Comment on above: Order Comment: Speci men Type: URINE SPECIMENOrdering Facility: [facility] Address: [address] [place] [address] Result Comment: Cuto ff threshold at 300 ng/mL. Performed By: #### U TOX2 ####[facility]ORY[facility]IA [id number] [address] [place] Opiates Screen Ql (U) Negative Normal Negative [facility] Comment on above: Order Comment: Speci men Type: URINE SPECIMENOrdering Facility: [facility] Address: [address] [place] [address] Result Comment: Cuto ff threshold at 300 ng/mL. Performed By: #### U TOX2 ####[facility]ORY[facility]IA [id number] [address] [place] Phencyclidine Ql (U) Negative Normal Negative [facility] Comment on above: Order Comment: Speci men Type: URINE SPECIMENOrdering Facility: [facility] Address: [address] [place] [address] Result Comment: Cuto ff threshold at 25 ng/mL. Performed By: #### U TOX2 ####[facility]ORYCLIA [id number] [address] Urinalysis complete panel (U )on 02-06-2024 Bacteria LM.HPF (Urine sed) [#/Area] None Seen Normal None Seen [facility] Comment on above: Order Comment: Speci men Type: URINE SPECIMENOrdering Facility: [facility] Address: [address] [place] [address] Performed By: #### 2 4356-8 ####[facility]IA [id number] [address] [place] Bilirubin Ql (U) Negative Normal Negative [facility] Comment on above: Order Comment: Speci men Type: URINE SPECIMENOrdering Facility: [facility] Address: [address] [place] [address] Performed By: #### 2 4356-8 ####[facility]ORYCLIA [id number] [address] Clarity (Unsp spec) Clear Normal Clear [facility] Comment on above: Order Comment: Speci men Type: URINE SPECIMENOrdering Facility: [facility] Address: [address] [place] [address] Performed By: #### 2 4356-8 ####[facility]ORYCLIA [id number] [address] Color (U) Straw Normal Yellow [facility] Comment on above: Order Comment: Speci men Type: URINE SPECIMENOrdering Facility: [facility] Address: [address] [place] [address] Performed By: #### 2 4356-8 ####[facility]ORYCLIA [id number] [address] [place] Epithelial cells LM.HPF (Urine sed) [#/Area] Few Normal [facility] Comment on above: Order Comment: Speci men Type: URINE SPECIMENOrdering Facility: [facility] Address: [address] [place] [address] Performed By: #### 2 4356-8 ####[facility]ORYCLIA [id number] [address] Glucose Test strip (U) [Mass/Vol] 3+ Abnormal Negative [facility] Comment on above: Order Comment: Speci men Type: URINE SPECIMENOrdering Facility: [facility] Address: [address] [place] [address] Performed By: #### 2 4356-8 ####[facility]ORYCLIA [id number] [address] STATES OF [facility] Hemoglobin Ql (U) 1+ Abnormal Negative [facility] Comment on above: Order Comment: Speci men Type: URINE SPECIMENOrdering Facility: [facility] Address: [address] [place] [address] Performed By: #### 2 4356-8 ####[facility]ORYCLIA [id number] [address] Ketones Ql (U) 2+ Abnormal Negative [facility] Comment on above: Order Comment: Speci men Type: URINE SPECIMENOrdering Facility: [facility] Address: [address] [place] [address] Performed By: #### 2 4356-8 ####[facility]ORYCLIA [id number] [address] Leukocyte esterase Test strip Ql (U) Negative Normal Negative [facility] Comment on above: Order Comment: Speci men Type: URINE SPECIMENOrdering Facility: [facility] Address: [address] [place] [address] Performed By: #### 2 4356-8 ####[facility]ORYCLIA [id number] [address] [place] Nitrite Ql (U) Negative Normal Negative [facility] Comment on above: Order Comment: Speci men Type: URINE SPECIMENOrdering Facility: [facility] Address: [address] [place] [address] Performed By: #### 2 4356-8 ####[facility]ORYCLIA [id number] [address] pH (U) 5.0 [pH] Normal 5.0-8.0 [facility] Comment on above: Order Comment: Speci men Type: URINE SPECIMENOrdering Facility: [facility] Address: [address] [place] [address] Performed By: #### 2 4356-8 ####[facility]ORYCLIA [id number] [address] [place] Protein (U) [Mass/Vol] Negative Normal Negative [facility] Comment on above: Order Comment: Speci men Type: URINE SPECIMENOrdering Facility: [facility] Address: [address] [place] [address] Performed By: #### 2 4356-8 ####[facility]ORYCLIA [id number] [address] [place] RBC LM.HPF (Urine sed) [#/Area] 0-3 /HPF Normal 0-3 /HPF [facility] Comment on above: Order Comment: Speci men Type: URINE SPECIMENOrdering Facility: [facility] Address: [address] [place] [address] Performed By: #### 2 4356-8 ####[facility]ORYCLIA [id number] [address] Specific gravity (U) [Rel density] 1.024 Normal 1.005-1.030 [facility] Comment on above: Order Comment: Speci men Type: URINE SPECIMENOrdering Facility: [facility] Address: [address] [place] [address] Performed By: #### 2 4356-8 ####[facility]ORYCLIA [id number] [address] Urobilinogen Ql (U) Negative Normal Negative [facility] Comment on above: Order Comment: Speci men Type: URINE SPECIMENOrdering Facility: [facility] Address: [address] [place] [address] Performed By: #### 2 4356-8 ####[facility]ORYCLIA [id number] [address] [place] WBC LM.HPF (Urine sed) [#/Area] 0-5 /HPF Normal 0-5 /HPF [facility] Comment on above: Order Comment: Speci men Type: URINE SPECIMENOrdering Facility: [facility] Address: [address] [place] [address] Performed By: #### 2 4356-8 ####[facility]ORYCLIA [id number] [place] [address] [place] [facility] Bacteria LM.HPF (Urine sed) [#/Area] Rare Abnormal None Seen [facility] Comment on above: Order Comment: Speci men Type: URINE SPECIMENOrdering Facility: [facility] Address: [address] [place] [address] Performed By: #### 2 4356-8 ####[facility]ATORYIA [id number] [address] [place] Bilirubin Ql (U) Negative Normal Negative [facility] Comment on above: Order Comment: Speci men Type: URINE SPECIMENOrdering Facility: [facility] Address: [address] [place] [address] Performed By: #### 2 4356-8 ####[facility]ORYIA [id number] [address] [place] Clarity (Unsp spec) Clear Normal Clear [facility] Comment on above: Order Comment: Speci men Type: URINE SPECIMENOrdering Facility: [facility] Address: [address] [place] [address] Performed By: #### 2 4356-8 ####[facility]ORYCLIA [id number] [address] [place] Color (U) Straw Normal Yellow [facility] Comment on above: Order Comment: Speci men Type: URINE SPECIMENOrdering Facility: [facility] Address: [address] [place] [address] Performed By: #### 2 4356-8 ####[facility]ORYCLIA [id number] [place] [address] [facility] [place] Epithelial cells LM.HPF (Urine sed) [#/Area] None Seen Normal [facility] Comment on above: Order Comment: Speci men Type: URINE SPECIMENOrdering Facility: [facility] Address: [address] [place] [address] Performed By: #### 2 4356-8 ####[facility]ORYCLIA [id number] [place] [address] [facility] [place] Glucose Test strip (U) [Mass/Vol] 3+ Abnormal Negative [facility] Comment on above: Order Comment: Speci men Type: URINE SPECIMENOrdering Facility: [facility] Address: [address] [place] [address] Performed By: #### 2 4356-8 ####[facility]ORYCLIA [id number] [place] [address] [place] Hemoglobin Ql (U) 1+ Abnormal Negative [facility] Comment on above: Order Comment: Speci men Type: URINE SPECIMENOrdering Facility: [facility] Address: [address] [place] [address] Performed By: #### 2 4356-8 ####[facility]ORYCLIA [id number] [address] [place] Ketones Ql (U) 2+ Abnormal Negative [facility] Comment on above: Order Comment: Speci men Type: URINE SPECIMENOrdering Facility: [facility] Address: [address] [place] [address] Performed By: #### 2 4356-8 ####[facility]ORYCLIA [id number] [place] [address] [place] Leukocyte esterase Test strip Ql (U) 2+ Abnormal Negative [facility] Comment on above: Order Comment: Speci men Type: URINE SPECIMENOrdering Facility: [facility] Address: [address] [place] [address] Performed By: #### 2 4356-8 ####[facility]ORYCLIA [id number] [address] [place] Nitrite Ql (U) Negative Normal Negative [facility] Comment on above: Order Comment: Speci men Type: URINE SPECIMENOrdering Facility: [facility] Address: [address] [place] [address] Performed By: #### 2 4356-8 ####[facility]ORYCLIA [id number] [place] [address] [place] pH (U) 5.0 [pH] Normal 5.0-8.0 [facility] Comment on above: Order Comment: Speci men Type: URINE SPECIMENOrdering Facility: [facility] Address: [address] [place] [address] Performed By: #### 2 4356-8 ####[facility]ORYCLIA [id number] [address] [place] Protein (U) [Mass/Vol] Negative Normal Negative [facility] Comment on above: Order Comment: Speci men Type: URINE SPECIMENOrdering Facility: [facility] Address: [address] [place] [address] Performed By: #### 2 4356-8 ####[facility]ORYCLIA [id number] [place] [address] [place] RBC LM.HPF (Urine sed) [#/Area] 0-3 /HPF Normal 0-3 /HPF [facility] Comment on above: Order Comment: Speci men Type: URINE SPECIMENOrdering Facility: [facility] Address: [address] [place] [address] Performed By: #### 2 4356-8 ####[facility]ORYCLIA [id number] [place] [id number] [place] Specific gravity (U) [Rel density] 1.024 Normal 1.005-1.030 [facility] Comment on above: Order Comment: Speci men Type: URINE SPECIMENOrdering Facility: [facility] Address: [address] [place] [address] Performed By: #### 2 4356-8 ####[facility]ORYCLIA [id number] [address] [place] Urobilinogen Ql (U) Negative Normal Negative [facility] Comment on above: Order Comment: Speci men Type: URINE SPECIMENOrdering Facility: [facility] Address: [address] [place], [place] [address] Performed By: #### 2 4356-8 ####[facility]ATORYCLIA [id number] [place] [address] [place] WBC LM.HPF (Urine sed) [#/Area] 0-5 /HPF Normal 0-5 /HPF [facility] Comment on above: Order Comment: Speci men Type: URINE SPECIMENOrdering Facility: [facility] Address: [address] [place] [address] Performed By: #### 2 4356-8 ####[facility]ORYCLIA [id number] [place] [id number] [place] XR CHEST 1V FRONTAL PORTon 0 02-06-2024 XR CHEST 1V FRONTAL PORT * * *Final Report* * * DATE OF EXAM: Feb 06 2024 8:32PM RHX [id number] - XR CHEST 1V FRONTAL PORT / PROCEDURE REASON: Shortness of breath * * * * Physician Interpretation * * * * EXAMINATION: CHEST RADIOGRAPH (PORTABLE SINGLE VIEW AP) Exam Date/Time: 02/06/2024 8:32 PM CLINICAL HISTORY: Shortness of breath MQ: XCPR_5 Comparison: None RESULT: Lines, tubes, and devices: None. Lungs and pleura: Hazy opacity in the left midlung. Cardiomediastinal silhouette: Stable cardiomediastinal silhouette. IMPRESSION: Hazy airspace opacity in the left midlung may represent infection. Journeyman Pipefitter: PSCB Transcribe Date/Time: Feb 06 2024 9:16P Dictated by : DHARMESH AMADOR MD This examination was interpreted and the report reviewed and electronically signed by: DHARMESH AMADOR MD on Feb 06 2024 9:17PM EST [id number] Normal [facility] .Auto Diffon 02-01-2024 Basophil, Absolute 0.0 10 3/mcL Normal 0.0-0.3 [facility] ([place]) Comment on above: Performed By: #### U A, UAMIC #### [address] [address] Basophils/100 WBC (Bld) 0.5 % Normal 0.0-2.5 [facility] ([place]) Comment on above: Performed By: #### U A, UAMIC #### [address] [address] Eosinophil, Absolute 0.2 10 3/mcL Normal 0.0-0.7 [facility] ([place]) Comment on above: Performed By: #### U A, UAMIC #### [address] [address] Eosinophils/100 WBC (Bld) 3.5 % Normal 0.0-6.0 [facility] ([place] Comment on above: Performed By: #### U A, UAMIC #### [address] [address] Lymphocyte, Absolute 1.4 10 3/mcL Normal 0.9-4.3 [facility] ([place]) Comment on above: Performed By: #### U A, UAMIC #### [address] [address] Lymphocytes/100 WBC (Bld) 22.6 % Normal 20.0-40.0 [facility] ([place] Comment on above: Performed By: #### U A, UAMIC #### [address] [address] Monocyte, Absolute 0.5 10 3/mcL Normal 0.1-1.4 [facility] ([place]) Comment on above: Performed By: #### U A, UAMIC #### [address] [address] Monocytes/100 WBC (Bld) 8.3 % Normal 2.0-13.0 [facility] ([place] Comment on above: Performed By: #### U A, UAMIC #### [address] [address] Neutrophils/100 WBC (Bld) 65.1 % Normal 50.0-75.0 [facility] ([place] Comment on above: Performed By: #### U A, UAMIC #### [place] [id number] [place] [address] .GFRon 02-01-2024 GFR >60 Normal [facility] ([place]) Comment on above: Result Comment: GFR Population mean for , Non- Americans Ages 20-29 = 116 mL/min/1.73 sq.m. Ages 30-39 = 107 mL/min/1.73 sq.m. Ages 40-49 = 99 mL/min/1.73 sq.m. Ages 50-59 = 93 mL/min/1.73 sq.m. Ages 60-69 = 85 mL/min/1.73 sq.m. Ages 70+ = 75 mL/min/1.73 sq.m. Chronic Kidney Disease: Less than 60 mL/min/1.73 square meters End Stage Renal Disease: Less than 15 mL/min/1.73 square meters Performed By: #### M DW, GFR, ANEU, CMP, CBC, DRUGS, PHV, ADIFF, TROPHS ####[address] [address] GFR Non- >60 Normal [facility] ([place] Comment on above: Result Comment: GFR Population mean for , Non- Americans Ages 20-29 = 116 mL/min/1.73 sq.m. Ages 30-39 = 107 mL/min/1.73 sq.m. Ages 40-49 = 99 mL/min/1.73 sq.m. Ages 50-59 = 93 mL/min/1.73 sq.m. Ages 60-69 = 85 mL/min/1.73 sq.m. Ages 70+ = 75 mL/min/1.73 sq.m. Chronic Kidney Disease: Less than 60 mL/min/1.73 square meters End Stage Renal Disease: Less than 15 mL/min/1.73 square meters Performed By: #### M DW, GFR, ANEU, CMP, CBC, DRUGS, PHV, ADIFF, TROPHS ####[address] [address] .MDWon 07-24-2024 Monocyte Distribution Width 21.89 High 0.00-20.00 [facility] ([place] Comment on above: Result Comment: For adults in ED, MDW>20.0 may be associated with a higher risk of sepsis during the first 12hrs of hospital admission Performed By: #### M DW, GFR, ANEU, CMP, CBC, DRUGS, PHV, ADIFF, TROPHS ####[place] [address] .NEUABSon 02-01-2024 Neutrophil, Absolute 4.1 10 3/mcL Normal 2.3-8.1 [facility] ([place]) Comment on above: Performed By: #### Kacie Espinoza UAMIC #### [place] [address] CBCon 02-01-2024 Erythrocyte distribution width (RBC) [Ratio] 15.1 % Normal 11.5-15.5 [facility] ([place] Comment on above: Performed By: #### Kacie Espinoza UAMIC #### [place] [address] Hematocrit (Bld) [Volume fraction] 41.0 % Normal 40.0-52.0 [facility] ([place] Comment on above: Performed By: #### Kacie Espinoza UAMIC #### [place] [address] Hgb 14.1 G/dL Normal 13.0-17.5 [facility] ([place] Comment on above: Performed By: #### Kacie Espinoza UAMIC #### [place] [address] MCH (RBC) [Entitic mass] 31.4 pg Normal 27.0-33.0 [facility] ([place] Comment on above: Performed By: #### U Olga UAMIC #### [place] [address] MCHC 34.3 G/dL Normal 32.0-36.0 [facility] ([place] Comment on above: Performed By: #### U Olga UAMIC #### [place] [address] MCV (RBC) [Entitic vol] 91.6 fL Normal 81.0-100.0 [facility] ([place] Comment on above: Performed By: #### Kacie Espinoza UAMIC #### [address] [address] Platelet 183 10 3/mcL Normal 150-450 [facility] ([place] Comment on above: Performed By: #### U Olga UAMIC #### [address] [address] Platelet mean volume (Bld) [Entitic vol] 7.7 fL Normal 6.4-10.5 [facility] ([place] Comment on above: Performed By: #### Kacie Espinoza UAMIC #### [address] [address] RBC 4.48 10 6/mcL Low 4.50-6.00 [facility] ([place] Comment on above: Performed By: #### Kacie Espinoza UAMIC #### [address] [address] WBC 6.3 10 3/mcL Normal 4.5-10.8 [facility] ([place] Comment on above: Performed By: #### Kacie Espinoza UAMIC #### [address] [address] CMPon 02-01-2024 Albumin Level 3.5 G/dL Normal 3.2-4.8 [facility] ([place] Comment on above: Performed By: #### M DW, GFR, ANEU, CMP, CBC, DRUGS, PHV, ADIFF, TROPHS ####[address] [address] Albumin/Globulin [Mass ratio] 1.1 {ratio} Normal 0.9-1.6 [facility] ([place] Comment on above: Performed By: #### M DW, GFR, ANEU, CMP, CBC, DRUGS, PHV, ADIFF, TROPHS ####[address] [address] ALP [Catalytic activity/Vol] 96 U/L Normal 38-126 [facility] ([place] Comment on above: Performed By: #### M DW, GFR, ANEU, CMP, CBC, DRUGS, PHV, ADIFF, TROPHS ####[address] [address] ALT [Catalytic activity/Vol] 24 U/L Normal 12-55 [facility] ([place] Comment on above: Performed By: #### M DW, GFR, ANEU, CMP, CBC, DRUGS, PHV, ADIFF, TROPHS ####[place] [id number] AST [Catalytic activity/Vol] 39 U/L High 8-34 [facility] ([place] Comment on above: Performed By: #### M DW, GFR, ANEU, CMP, CBC, DRUGS, PHV, ADIFF, TROPHS ####[place] [id number] Bili Total 1.00 mg/dL Normal 0.20-1.20 [facility] ([place] Comment on above: Result Comment: Use of this assay is not recommended for patients undergoing treatment with eltrombopag due to the potential for falsely elevated results. Performed By: #### M DW, GFR, ANEU, CMP, CBC, DRUGS, PHV, ADIFF, TROPHS ####[place] [address] BUN/Creatinine Ratio 13.8 ratio Normal 10.0-22.0 [facility] ([place] Comment on above: Performed By: #### M DW, GFR, ANEU, CMP, CBC, DRUGS, PHV, ADIFF, TROPHS ####[address] [address] Calcium [Mass/Vol] 8.8 mg/dL Normal 8.7-10.4 [facility] ([place]) Comment on above: Performed By: #### M DW, GFR, ANEU, CMP, CBC, DRUGS, PHV, ADIFF, TROPHS ####[place] [id number] Chloride [Moles/Vol] 102 mmol/L Normal 98-110 [facility] ([place] Comment on above: Performed By: #### M DW, GFR, ANEU, CMP, CBC, DRUGS, PHV, ADIFF, TROPHS ####[address] [address] CO2 [Moles/Vol] 30 mmol/L Normal 22-32 [facility] ([place] Comment on above: Performed By: #### M DW, GFR, ANEU, CMP, CBC, DRUGS, PHV, ADIFF, TROPHS ####[address] [address] Creatinine [Mass/Vol] 0.87 mg/dL Normal 0.60-1.40 [facility] ([place] Comment on above: Performed By: #### M DW, GFR, ANEU, CMP, CBC, DRUGS, PHV, ADIFF, TROPHS ####[place] [address] Electrolyte Balance 7.0 mEq/L Normal 4.0-15.0 [facility] ([place] Comment on above: Performed By: #### M DW, GFR, ANEU, CMP, CBC, DRUGS, PHV, ADIFF, TROPHS ####[place] [address] Globulin 3.1 G/dL Normal 1.5-3.8 [facility] ([place] Comment on above: Performed By: #### M DW, GFR, ANEU, CMP, CBC, DRUGS, PHV, ADIFF, TROPHS ####[place] [address] Glucose [Mass/Vol] 289 mg/dL High 70-110 [facility] ([place]) Comment on above: Performed By: #### M DW, GFR, ANEU, CMP, CBC, DRUGS, PHV, ADIFF, TROPHS ####[place] [address] Potassium [Moles/Vol] 3.7 mmol/L Normal 3.5-5.0 [facility] ([place] Comment on above: Performed By: #### M DW, GFR, ANEU, CMP, CBC, DRUGS, PHV, ADIFF, TROPHS ####[address] [address] Sodium [Moles/Vol] 139 mmol/L Normal 136-145 [facility] ([place]) Comment on above: Performed By: #### M DW, GFR, ANEU, CMP, CBC, DRUGS, PHV, ADIFF, TROPHS ####[place] [address] Total Protein 6.6 G/dL Normal 5.7-8.2 [facility] ([place] Comment on above: Result Comment: No te - New Reference Range in effect 20 Performed By: #### M DW, GFR, ANEU, CMP, CBC, DRUGS, PHV, ADIFF, TROPHS ####[place] [address] Urea nitrogen [Mass/Vol] 12.0 mg/dL Normal 8.0-22.0 [facility] ([place] Comment on above: Performed By: #### M DW, GFR, ANEU, CMP, CBC, DRUGS, PHV, ADIFF, TROPHS ####[place] [address] DRUGSon 02-01-2024 Acetaminophen [Mass/Vol] ug/mL Low 10.0-20.0 [facility] ([place] Comment on above: Performed By: #### T KING DRUGS #### [place] [address] Ethanol Level <10.0 Normal [facility] ([place] Comment on above: Performed By: #### T KING DRUGS #### [place] [address] Salicylate Lvl (ds) <3.0 Low 10.0-25.0 [facility] ([place] Comment on above: Performed By: #### T KING, DRUGS #### [place] [address] Serum Drugs screened: See Below Normal [facility] ([place] Comment on above: Result Comment: This drug screen is a presumptive screening only. No confirmation will be performed unless requested. Drugs included in the ER serum drug screen are: Threshold Ethanol 10.0 mg/dL Salicylate 2.0 mg/dl Acetaminophen 2.0 mcg/mL Testing has been performed FOR MEDICAL PURPOSES ONLY. Performed By: #### T KING, DRUGS #### [place] [address] Acetaminophen [Mass/Vol] ug/mL Low 10.0-20.0 [facility] ([place]) Comment on above: Performed By: #### M DW, GFR, ANEU, CMP, CBC, DRUGS, PHV, ADIFF, TROPHS ####[place] [address] Ethanol Level <10.0 Normal [facility] ([place] Comment on above: Performed By: #### M DW, GFR, ANEU, CMP, CBC, DRUGS, PHV, ADIFF, TROPHS ####[place] [address] Salicylate Lvl (ds) <3.0 Low 10.0-25.0 [facility] ([place] Comment on above: Performed By: #### M DW, GFR, ANEU, CMP, CBC, DRUGS, PHV, ADIFF, TROPHS ####[place] [address] Serum Drugs screened: See Below Normal [facility] [place] Comment on above: Result Comment: This drug screen is a presumptive screening only. No confirmation will be performed unless requested. Drugs included in the ER serum drug screen are: Threshold Ethanol 10.0 mg/dL Salicylate 2.0 mg/dl Acetaminophen 2.0 mcg/mL Testing has been performed FOR MEDICAL PURPOSES ONLY. Performed By: #### M DW, GFR, ANEU, CMP, CBC, DRUGS, PHV, ADIFF, TROPHS ####[place] [address] DRUGUon 02-01-2024 Amphetamine (u) Negative Normal Negative [facility] ([place] Comment on above: Performed By: #### Kate RUGU #### [place] [address] Barbiturate (u) Negative Normal Negative [facility] ([place] Comment on above: Performed By: #### Kate RUGU #### [place] [address] Benzodiazepine (u) Negative Normal Negative [facility] ([place]) Comment on above: Performed By: #### Kate RUGU #### [address] [address] Cannabinoid (u) Negative Normal Negative [facility] ([place] Comment on above: Performed By: #### Kate RUGU #### [address] [address] Cocaine Ql (U) Positive Abnormal Negative [facility] ([place] Comment on above: Performed By: #### Kate RUGU #### [address] [address] Fentanyl (u) Negative Normal Negative [facility] ([place] Comment on above: Result Comment: Test ing has been performed FOR MEDICAL PURPOSES ONLY. Performed By: #### Kate RUGU #### [place] [id number] Methadone Ql (U) Negative Normal Negative [facility] ([place] Comment on above: Performed By: #### Kate RUGU #### [place] [id number] Opiate (u) Negative Normal Negative [facility] ([place] Comment on above: Performed By: #### Kate RUGU #### [place] [id number] Oxycodone (u) Negative Normal Negative [facility] ([place] Comment on above: Result Comment: Test ing has been performed FOR MEDICAL PURPOSES ONLY. Performed By: #### Kate RUGU #### [address] [address] PCP (u) Negative Normal Negative [facility] ([place] Comment on above: Performed By: #### Kate RUGU #### [place] [id number] Propoxyphene (u) Negative Normal Negative [facility] ([place] Comment on above: Performed By: #### Kate RUGU #### [address] [address] U pH Drug Scrn 5.5 Normal 5.0-8.0 [facility] ([place] Comment on above: Performed By: #### Kate RUGU #### [place] [id number] Urine Drugs screened: See Below Normal [facility] [place] Comment on above: Result Comment: This drug screen is a presumptive screening only. No confirmation will be performed unless requested. Drugs screened include: Threshold Amphetamines/Methamphetamines 1,000 ng/mL Barbiturates 200 ng/mL Benzodiazepine metabolites 200 ng/mL Cannabinoids (THC metabolites) 50 ng/mL Benzoylecognine (Cocaine metab) 300 ng/mL Opiates 300 ng/mL Phencyclidine (PCP) 25 ng/mL Methadone 300 ng/mL Propoxyphene 300 ng/mL Fentanyl 1.0 ng/mL Oxycodone 100 ng/mL Testing has been performed FOR MEDICAL PURPOSES ONLY. Performed By: #### D SILVANAU #### [facility] [address] [place] [address] LABORATORYOrdered By: Tiny Frederick on 02-01-2024 Amphetamines Screen Ql (U) Negative *NA* (02/01/24 5:56 PM) Invalid Interpretation Code Negative AH ADM SS Barbiturates Screen Ql (U) Negative *NA* (02/01/24 5:56 PM) Invalid Interpretation Code Negative AH ADM SS Benzodiazepines Ql (U) Negative *NA* (02/01/24 5:56 PM) Invalid Interpretation Code Negative AH ADM SS Benzoylecgonine Screen Ql (U) Positive *ABN* (02/01/24 5:56 PM) Invalid Interpretation Code Negative AH ADM SS Cannabinoids Screen Ql (U) Negative *NA* (02/01/24 5:56 PM) Invalid Interpretation Code Negative AH ADM SS fentaNYL Screen Ql (U) Negative 2 *NA* (02/01/24 5:56 PM) Invalid Interpretation Code Negative AH ADM SS Comment on above: Interpretive Data: T esting has been performed FOR MEDICAL PURPOSES ONLY. Methadone Screen Ql (U) Negative *NA* (02/01/24 5:56 PM) Invalid Interpretation Code Negative AH ADM SS Opiates Screen Ql (U) Negative *NA* (02/01/24 5:56 PM) Invalid Interpretation Code Negative AH ADM SS oxyCODONE Ql (U) Negative 3 *NA* (02/01/24 5:56 PM) Invalid Interpretation Code Negative AH ADM SS Comment on above: Interpretive Data: T esting has been performed FOR MEDICAL PURPOSES ONLY. pH (U) 5.5 [pH] Normal 5.0 - 8.0 AH Chemistry S Phencyclidine Ql (U) Negative *NA* (02/01/24 5:56 PM) Invalid Interpretation Code Negative AH ADM SS Propoxyphene Screen Ql (U) Negative *NA* (02/01/24 5:56 PM) Invalid Interpretation Code Negative AH ADM SS Urine Drugs screened: See Below 10 (02/01/24 5:56 PM) Normal AH Chemistry S Comment on above: Interpretive Data: T his drug screen is a presumptive screening only. No confirmation will be performed unless requested. Drugs screened include: Threshold Amphetamines/Methamphetamines 1,000 ng/mL Barbiturates 200 ng/mL Benzodiazepine metabolites 200 ng/mL Cannabinoids (THC metabolites) 50 ng/mL Benzoylecognine (Cocaine metab) 300 ng/mL Opiates 300 ng/mL Phencyclidine (PCP) 25 ng/mL Methadone 300 ng/mL Propoxyphene 300 ng/mL Fentanyl 1.0 ng/mL Oxycodone 100 ng/mL Testing has been performed FOR MEDICAL PURPOSES ONLY. Acetaminophen [Mass/Vol] mcg/mL Low 10.0 - 20.0 mcg/mL AH ADM SS Ethanol [Mass/Vol] mg/dL Invalid Interpretation Code AH ADM SS Salicylates [Mass/Vol] mg/dL Low 10.0 - 25.0 mg/dL AH ADM SS Serum Drugs screened: See Below 8 (02/01/24 4:37 PM) Normal AH Chemistry S Comment on above: Interpretive Data: T his drug screen is a presumptive screening only. No confirmation will be performed unless requested. Drugs included in the ER serum drug screen are: Threshold Ethanol 10.0 mg/dL Salicylate 2.0 mg/dl Acetaminophen 2.0 mcg/mL Testing has been performed FOR MEDICAL PURPOSES ONLY. Acetaminophen [Mass/Vol] mcg/mL Low 10.0 - 20.0 mcg/mL AH ADM SS Ethanol [Mass/Vol] mg/dL Invalid Interpretation Code AH ADM SS Salicylates [Mass/Vol] mg/dL Low 10.0 - 25.0 mg/dL AH ADM SS Serum Drugs screened: See Below 9 (02/01/24 3:27 PM) Normal AH Chemistry S Comment on above: Interpretive Data: T his drug screen is a presumptive screening only. No confirmation will be performed unless requested. Drugs included in the ER serum drug screen are: Threshold Ethanol 10.0 mg/dL Salicylate 2.0 mg/dl Acetaminophen 2.0 mcg/mL Testing has been performed FOR MEDICAL PURPOSES ONLY. LABORATORYOrdered By: SYSTEM SYSTEM on 02-01-2024 Troponin I.cardiac DL <= 0.01 ng/mL [Mass/Vol] 334 ng/L High 0 - 54 ng/L ADM SS Comment on above: Interpretive Data: High Sensitive Troponin I Reference Ranges: Female: 0-34 ng/L Male: 0-54 ng/L Testing performed on Booster analyzer using direct chemiluminescent technology. Albumin BCP dye [Mass/Vol] 3.5 G/dL Normal 3.2 - 4.8 G/dL AH ADM SS Albumin/Globulin [Mass ratio] 1.1 {ratio} Normal 0.9 - 1.6 ratio AH ADM SS ALP [Catalytic activity/Vol] 96 U/L Normal 38 - 126 U/L AH ADM SS ALT No additional P-5'-P [Catalytic activity/Vol] 24 U/L Normal 12 - 55 U/L AH ADM SS AST [Catalytic activity/Vol] 39 U/L High 8 - 34 U/L ADM SS Basophils (Bld) [#/Vol] 0.0 103/mcL Normal 0.0 - 0.3 10^3/mcL Workflow SS Basophils/100 WBC (Bld) 0.5 % Normal 0.0 - 2.5 % Workflow SS Bilirubin [Mass/Vol] 1.00 mg/dL Normal 0.20 - 1.20 mg/dL ADM SS Comment on above: Interpretive Data: U se of this assay is not recommended for patients undergoing treatment with eltrombopag due to the potential for falsely elevated results. Calcium [Mass/Vol] 8.8 mg/dL Normal 8.7 - 10. 4 mg/dL AH ADM SS Chloride [Moles/Vol] 102 mmol/L Normal 98 - 11 0 mEq/L AH ADM SS CO2 [Moles/Vol] 30 mmol/L Normal 22 - 32 mEq/L AH ADM SS Creatinine [Mass/Vol] 0.87 mg/dL Normal 0.60 - 1.40 mg/dL AH ADM SS Electrolyte Balance 7.0 mEq/L Normal 4.0 - 15 .0 mEq/L AH ADM SS Eosinophils (Bld) [#/Vol] 0.2 103/mcL Normal 0.0 - 0.7 10^3/mcL Workflow SS Eosinophils/100 WBC (Bld) 3.5 % Normal 0.0 - 6.0 % Workflow SS Erythrocyte distribution width (RBC) [Ratio] 15.1 % Normal 11.5 - 15.5 % Workflow SS GFR/1.73 sq M.predicted among blacks MDRD (S/P/Bld) [Vol rate/Area] ml/min/1.73sqm Invalid Interpretation Code [facility] Comment on above: Interpretive Data: GFR Population mean for , Non- Americans Ages 20-29 = 116 mL/min/1.73 sq.m. Ages 30-39 = 107 mL/min/1.73 sq.m. Ages 40-49 = 99 mL/min/1.73 sq.m. Ages 50-59 = 93 mL/min/1.73 sq.m. Ages 60-69 = 85 mL/min/1.73 sq.m. Ages 70+ = 75 mL/min/1.73 sq.m. Chronic Kidney Disease: Less than 60 mL/min/1.73 square meters End Stage Renal Disease: Less than 15 mL/min/1.73 square meters GFR/1.73 sq M.predicted among non-blacks MDRD (S/P/Bld) [Vol rate/Area] ml/min/1.73sqm Invalid Interpretation Code [facility] Comment on above: Interpretive Data: GFR Population mean for , Non- Americans Ages 20-29 = 116 mL/min/1.73 sq.m. Ages 30-39 = 107 mL/min/1.73 sq.m. Ages 40-49 = 99 mL/min/1.73 sq.m. Ages 50-59 = 93 mL/min/1.73 sq.m. Ages 60-69 = 85 mL/min/1.73 sq.m. Ages 70+ = 75 mL/min/1.73 sq.m. Chronic Kidney Disease: Less than 60 mL/min/1.73 square meters End Stage Renal Disease: Less than 15 mL/min/1.73 square meters Globulin 3.1 G/dL Normal 1.5 - 3.8 G/dL [facility] Glucose [Mass/Vol] 289 mg/dL High 70 - 110 mg/dL [facility] Hematocrit (Bld) [Volume fraction] 41.0 % Normal 40.0 - 52.0 % AH Workflow SS Hemoglobin (Bld) [Mass/Vol] 14.1 G/dL Normal 13.0 - 17.5 G/dL AH Workflow SS Lymphocytes (Bld) [#/Vol] 1.4 103/mcL Normal 0.9 - 4.3 10^3/mcL AH Workflow SS Lymphocytes/100 WBC (Bld) 22.6 % Normal 20.0 - 40.0 % AH Workflow SS MCH (RBC) [Entitic mass] 31.4 pg Normal 27.0 - 33.0 pg AH Workflow SS MCHC 34.3 G/dL Normal 32.0 - 36.0 G/dL AH Workflow SS MCV (RBC) [Entitic vol] 91.6 fL Normal 81.0 - 100.0 fL AH Workflow SS Monocyte distribution width Auto (Bld) [Entitic vol] 21.89 1 High 0.00 - 20.00 AH Workflow SS Comment on above: Result Comment: For adults in ED, MDW>20.0 may be associated with a higher risk of sepsis during the first 12hrs of hospital admission Monocytes (Bld) [#/Vol] 0.5 103/mcL Normal 0.1 - 1.4 10^3/mcL AH Workflow SS Monocytes/100 WBC (Bld) 8.3 % Normal 2.0 - 13.0 % AH Workflow SS Neutrophils (Bld) [#/Vol] 4.1 103/mcL Normal 2.3 - 8.1 10^3/mcL AH Workflow SS Neutrophils/100 WBC (Bld) 65.1 % Normal 50.0 - 75.0 % AH Workflow SS Platelet mean volume (Bld) [Entitic vol] 7.7 fL Normal 6.4 - 10.5 fL AH Workflow SS Platelets (Bld) [#/Vol] 183 103/mcL Normal 150 - 450 10^3/mcL AH Workflow SS Potassium [Moles/Vol] 3.7 mmol/L Normal 3.5 - 5.0 mEq/L AH ADM SS Protein [Mass/Vol] 6.6 G/dL Normal 5.7 - 8.2 G/dL AH ADM SS Comment on above: Interpretive Data: * *Note - New Reference Range in effect 20 RBC (Bld) [#/Vol] 4.48 106/mcL Low 4.50 - 6.0 0 10^6/mcL AH Workflow SS Sodium [Moles/Vol] 139 mmol/L Normal 136 - 145 mEq/L AH ADM SS Troponin I.cardiac DL <= 0.01 ng/mL [Mass/Vol] 384 ng/L High 0 - 54 ng/L AH ADM SS Comment on above: Interpretive Data: High Sensitive Troponin I Reference Ranges: Female: 0-34 ng/L Male: 0-54 ng/L Testing performed on Booster analyzer using direct chemiluminescent technology. Urea nitrogen [Mass/Vol] 12.0 mg/dL Normal 8.0 - 22.0 mg/dL AH ADM SS Urea nitrogen/Creatinine [Mass ratio] 13.8 ratio Normal 10.0 - 22.0 ratio AH ADM SS WBC (Bld) [#/Vol] 6.3 103/mcL Normal 4.5 - 10.8 10^3/mcL AH Workflow SS LABORATORYOrdered By: Kayla Flores on 02-01-2024 Appearance (U) Clear (02/01/24 3:39 PM) Normal Clear AH Auto Urine SS Bacteria LM.HPF (Urine sed) [#/Area] Trace /HPF Invalid Interpretation Code Negative AH Auto Urine SS Bilirubin Ql (U) Negative (02/01/24 3:39 PM) Normal Neg-Trace AH Auto Urine SS Color (U) Dark Yellow (02/01/24 3:39 PM) Normal AH Auto Urine SS Glucose Test strip (U) [Mass/Vol] >=1000 mg/dL Invalid Interpretation Code Negative AH Auto Urine SS Hemoglobin Auto test strip (U) [Mass/Vol] Negative (02/01/24 3:39 PM) Normal Neg-Trace AH Auto Urine SS Ketones Ql (U) 15 mg/dL Invalid Interpretation Code Neg-Trace AH Auto Urine SS UA Leuk Est Negative (02/01/24 3:39 PM) Normal Negative AH Auto Urine SS UA Mucous 4+ /HPF Normal AH Auto Urine SS UA Nitrite Negative (02/01/24 3:39 PM) Normal Negative AH Auto Urine SS UA pH 6.0 (02/01/24 3:39 PM) Normal 5.0 - 8.0 AH Auto Urine SS UA Protein Negative Normal Negative AH Auto Urine SS UA RBC 3-5 /HPF Invalid Interpretation Code 0-2 AH Auto Urine SS UA Spec Grav >=1.030 *ABN* (02/01/24 3:39 PM) Invalid Interpretation Code 1.006-1.029 AH Auto Urine SS UA Specimen Type Clean Catch (02/01/24 3:39 PM) Normal AH Auto Urine SS UA Squam Epithelial Rare /HPF Normal 0-20 AH Au to Urine SS UA Transitional Epithelial Rare /HPF Normal AH Auto Urine SS UA Urobilinogen 2.0 E.U./dL Invalid Interpretation Code 0.2-1.0 AH Auto Urine SS WBC LM.HPF (Urine sed) [#/Area] Rare /HPF Normal 0-5 Auto Urine SS LABORATORYOrdered By: Zulema Gonzalez on 02-01-2024 pH (Bld) 7.367 [pH] Low 7.380 - 7.460 Main Rapid Comm SS LABORATORYOrdered By: Renay mcclain on 02-01-2024 Glucose [Mass/Vol] 261 mg/dL High 70 - 110 mg/dL [facility] Work Phone: PHVon 02-01-2024 pH Venous 7.367 Low 7.380-7.460 [facility] [place] Comment on above: Performed By: #### U A, UAMIC #### [place] [address] TROPHSon 02-01-2024 High Sensitivity Troponin I 334 ng/L High 0-54 [facility] [place] Comment on above: Result Comment: High Sensitive Troponin I Reference Ranges: Female: 0-34 ng/L Male: 0-54 ng/L Testing performed on [facility] IM analyzer using direct chemiluminescent technology. Performed By: #### T ROPHS, DRUGS #### [place] [address] High Sensitivity Troponin I 384 ng/L High 0-54 [facility] [place] Comment on above: Result Comment: High Sensitive Troponin I Reference Ranges: Female: 0-34 ng/L Male: 0-54 ng/L Testing performed on [facility] IM analyzer using direct chemiluminescent technology. Performed By: #### M DW, GFR, ANEU, CMP, CBC, DRUGS, PHV, ADIFF, TROPHS ####[place] [id number] UAon 02-01-2024 Color (U) Dark Yellow Normal [facility] ([place]) Comment on above: Performed By: #### U A, UAMIC #### [place] [address] Glucose (U) [Mass/Vol] mg/dL Abnormal Negative [facility] ([place]) Comment on above: Performed By: #### U A, UAMIC #### [place] [address] Ketones Ql (U) 15 mg/dL Abnormal Neg-Trace [facility] ([place]) Comment on above: Performed By: #### U A, UAMIC #### [place] [address] UA Appear Clear Normal Clear [facility] ([place]) Comment on above: Performed By: #### U A, UAMIC #### [place] [address] UA Blood Negative Normal Neg-Trace [facility] ([place]) Comment on above: Performed By: #### U A, UAMIC #### [place] [address] UA Leuk Est Negative Normal Negative [facility] ([place]) Comment on above: Performed By: #### U A, UAMIC #### [place] [address] UA Nitrite Negative Normal Negative [facility] ([place]) Comment on above: Performed By: #### U A, UAMIC #### [place] [address] UA pH 6.0 Normal 5.0 - 8.0 [facility] ([place]) Comment on above: Performed By: #### U A, UAMIC #### [place] [address] UA Protein Negative Normal Negative [facility] ([place]) Comment on above: Performed By: #### U A, UAMIC #### [place] [address] UA Spec Grav >=1.030 Abnormal 1.006-1.029 [facility] ([place]) Comment on above: Performed By: #### U A, UAMIC #### [facility] [address] [place], [place] [address] UA Specimen Type Clean Catch Normal [facility] ([place]) Comment on above: Performed By: #### U A, UAMIC #### [place] [address] UA Urobilinogen 2.0 E.U./dL Abnormal 0.2-1.0 [facility] ([place]) Comment on above: Performed By: #### U A, UAMIC #### [place] [address] Urobilinogen (U) [Mass/Vol] Negative Normal Neg-Trace [facility] ([place]) Comment on above: Performed By: #### U A, UAMIC #### [place] [address] UAMICon 02-01-2024 UA Bacteria Trace Abnormal Negative [facility] ([place]) Comment on above: Performed By: #### U A, UAMIC #### [place] [address] UA Mucous 4+ /hpf Normal [facility] ([place]) Comment on above: Performed By: #### U A, UAMIC #### [place] [address] UA RBC 3-5 Abnormal 0-2 [facility] ([place] Comment on above: Performed By: #### U A, UAMIC #### [place] [address] UA Squam Epithelial Rare Normal 0-20 [facility] ([place]) Comment on above: Performed By: #### U A, UAMIC #### [place] [address] UA Transitional Epithelial Rare Normal [facility] ([place]) Comment on above: Performed By: #### U A, UAMIC #### [place] [address] UA WBC Rare Normal 0-5 [facility] ([place] Comment on above: Performed By: #### U A, UAMIC #### [place] [address] .Auto Diffon 01-05-2024 Basophil, Absolute 0.1 10 3/mcL Normal 0.0-0.3 [facility] ([place]) Comment on above: Performed By: #### G FR, BHB, CBC, MDW, ADIFF, ANEU, CMP #### [address] [address] Basophils/100 WBC (Bld) 0.7 % Normal 0.0-2.5 [facility] ([place]) Comment on above: Performed By: #### G FR, BHB, CBC, MDW, ADIFF, ANEU, CMP #### [address] [address] Eosinophil, Absolute 0.1 10 3/mcL Normal 0.0-0.7 [facility] ([place]) Comment on above: Performed By: #### G FR, BHB, CBC, MDW, ADIFF, ANEU, CMP #### [address] [address] Eosinophils/100 WBC (Bld) 1.3 % Normal 0.0-6.0 [facility] ([place]) Comment on above: Performed By: #### G FR, BHB, CBC, MDW, ADIFF, ANEU, CMP #### [address] [address] Lymphocyte, Absolute 2.0 10 3/mcL Normal 0.9-4.3 [facility] ([place]) Comment on above: Performed By: #### G FR, BHB, CBC, MDW, ADIFF, ANEU, CMP #### [address] [address] Lymphocytes/100 WBC (Bld) 24.6 % Normal 20.0-40.0 [facility] ([place]) Comment on above: Performed By: #### G FR, BHB, CBC, MDW, ADIFF, ANEU, CMP #### [address] [address] Monocyte, Absolute 0.7 10 3/mcL Normal 0.1-1.4 [facility] ([place]) Comment on above: Performed By: #### G FR, BHB, CBC, MDW, ADIFF, ANEU, CMP #### [address] [address] Monocytes/100 WBC (Bld) 8.6 % Normal 2.0-13.0 [facility] ([place]) Comment on above: Performed By: #### G FR, BHB, CBC, MDW, ADIFF, ANEU, CMP #### [address] [address] Neutrophils/100 WBC (Bld) 64.8 % Normal 50.0-75.0 [facility] ([place]) Comment on above: Performed By: #### G FR, BHB, CBC, MDW, ADIFF, ANEU, CMP #### [address] [address] .GFRon 01-05-2024 GFR >60 Normal [facility] ([place]) Comment on above: Result Comment: GFR Population mean for , Non- Americans Ages 20-29 = 116 mL/min/1.73 sq.m. Ages 30-39 = 107 mL/min/1.73 sq.m. Ages 40-49 = 99 mL/min/1.73 sq.m. Ages 50-59 = 93 mL/min/1.73 sq.m. Ages 60-69 = 85 mL/min/1.73 sq.m. Ages 70+ = 75 mL/min/1.73 sq.m. Chronic Kidney Disease: Less than 60 mL/min/1.73 square meters End Stage Renal Disease: Less than 15 mL/min/1.73 square meters Performed By: #### U A, UAMIC #### [address] [address] GFR Non- >60 Normal [facility] ([place]) Comment on above: Result Comment: GFR Population mean for , Non- Americans Ages 20-29 = 116 mL/min/1.73 sq.m. Ages 30-39 = 107 mL/min/1.73 sq.m. Ages 40-49 = 99 mL/min/1.73 sq.m. Ages 50-59 = 93 mL/min/1.73 sq.m. Ages 60-69 = 85 mL/min/1.73 sq.m. Ages 70+ = 75 mL/min/1.73 sq.m. Chronic Kidney Disease: Less than 60 mL/min/1.73 square meters End Stage Renal Disease: Less than 15 mL/min/1.73 square meters Performed By: #### PAYTON AguilaMIC #### [place] [address] .MDWon 01-05-2024 Monocyte Distribution Width 15.55 Normal 0.00-20.00 [facility] ([place]) Comment on above: Result Comment: For ED adult patients suspected of sepsis, MDW<=20.0 does not rule out sepsis or risk of sepsis Performed By: #### ROSA Aguila #### [place] [address] .NEUABSon 01-05-2024 Neutrophil, Absolute 5.2 10 3/mcL Normal 2.3-8.1 [facility] ([place]) Comment on above: Performed By: #### G FR, BHB, CBC, MDW, ADIFF, ANEU, CMP #### [place] [address] BHBon 01-05-2024 B-Hydroxybutyrate 41.42 mg/dL High 0.20-2.81 [facility] ([place]) Comment on above: Performed By: #### PAYTON AguilaMIC #### [place] [address] CBCon 01-05-2024 Erythrocyte distribution width (RBC) [Ratio] 13.6 % Normal 11.5-15.5 [facility] ([place]) Comment on above: Performed By: #### G FR, BHB, CBC, MDW, ADIFF, ANEU, CMP #### [place] [address] Hematocrit (Bld) [Volume fraction] 42.7 % Normal 40.0-52.0 [facility] ([place]) Comment on above: Performed By: #### G FR, BHB, CBC, MDW, ADIFF, ANEU, CMP #### [place] [address] Hgb 14.8 G/dL Normal 13.0-17.5 [facility] ([place] Comment on above: Performed By: #### G FR, BHB, CBC, MDW, ADIFF, ANEU, CMP #### [address] [address] MCH (RBC) [Entitic mass] 31.5 pg Normal 27.0-33.0 [facility] ([place] Comment on above: Performed By: #### G FR, BHB, CBC, MDW, ADIFF, ANEU, CMP #### [place] [address] MCHC 34.7 G/dL Normal 32.0-36.0 [facility] ([place] Comment on above: Performed By: #### G FR, BHB, CBC, MDW, ADIFF, ANEU, CMP #### [place] [address] MCV (RBC) [Entitic vol] 90.8 fL Normal 81.0-100.0 [facility] ([place] Comment on above: Performed By: #### G FR, BHB, CBC, MDW, ADIFF, ANEU, CMP #### [place] [address] Platelet 189 10 3/mcL Normal 150-450 [facility] ([place] Comment on above: Performed By: #### G FR, BHB, CBC, MDW, ADIFF, ANEU, CMP #### [place] [address] Platelet mean volume (Bld) [Entitic vol] 8.4 fL Normal 6.4-10.5 [facility] ([place] Comment on above: Performed By: #### G FR, BHB, CBC, MDW, ADIFF, ANEU, CMP #### [place] [address] RBC 4.70 10 6/mcL Normal 4.50-6.00 [facility] ([place]) Comment on above: Performed By: #### G FR, BHB, CBC, MDW, ADIFF, ANEU, CMP #### [place] [id number] WBC 8.0 10 3/mcL Normal 4.5-10.8 [facility] ([place] Comment on above: Performed By: #### G , BHB, CBC, MDW, RHONDA, ANEU, CMP #### [address] [address] CMPon 01-05-2024 Albumin Level 4.0 G/dL Normal 3.2-4.8 [facility] ([place] Comment on above: Performed By: #### Kacie Espinoza UAMIC #### [place] [id number] Albumin/Globulin [Mass ratio] 1.4 {ratio} Normal 0.9-1.6 [facility] ([place]) Comment on above: Performed By: #### Kacie Espinoza UAMIC #### [place] [id number] ALP [Catalytic activity/Vol] 98 U/L Normal 38-126 [facility] ([place]) Comment on above: Performed By: #### Kacie Espinoza UAMIC #### [place] [address] ALT [Catalytic activity/Vol] 36 U/L Normal 12-55 [facility] ([place] Comment on above: Performed By: #### Kacie Espinoza UAMIC #### [place] [id number] AST [Catalytic activity/Vol] 48 U/L High 8-34 [facility] ([place] Comment on above: Performed By: #### U Olga UAMIC #### [place] [address] Bili Total 1.50 mg/dL High 0.20-1.20 [facility] ([place]) Comment on above: Result Comment: Use of this assay is not recommended for patients undergoing treatment with eltrombopag due to the potential for falsely elevated results. Performed By: #### U A UAMIC #### [place] [id number] BUN/Creatinine Ratio 11.8 ratio Normal 10.0-22.0 [facility] ([place]) Comment on above: Performed By: #### U A, UAMIC #### [address] [address] Calcium [Mass/Vol] 9.6 mg/dL Normal 8.7-10.4 [facility] ([place]) Comment on above: Performed By: #### U A, UAMIC #### [address] [address] Chloride [Moles/Vol] 101 mmol/L Normal 98-110 [facility] ([place]) Comment on above: Performed By: #### U A, UAMIC #### [address] [address] CO2 [Moles/Vol] 20 mmol/L Low 22-32 [facility] ([place] Comment on above: Performed By: #### U A, UAMIC #### [address] [address] Creatinine [Mass/Vol] 0.85 mg/dL Normal 0.60-1.40 [facility] ([place]) Comment on above: Performed By: #### U A, UAMIC #### [address] [address] Electrolyte Balance 15.0 mEq/L Normal 4.0-15.0 [facility] ([place]) Comment on above: Performed By: #### U A, UAMIC #### [address] [address] Globulin 2.9 G/dL Normal 1.5-3.8 [facility] ([place] Comment on above: Performed By: #### U A, UAMIC #### [address] [address] Glucose [Mass/Vol] 333 mg/dL High 70-110 [facility] ([place]) Comment on above: Performed By: #### U A, UAMIC #### [address] [address] Potassium [Moles/Vol] 4.4 mmol/L Normal 3.5-5.0 [facility] ([place] Comment on above: Performed By: #### U A, UAMIC #### [address] [address] Sodium [Moles/Vol] 136 mmol/L Normal 136-145 [facility] ([place]) Comment on above: Performed By: #### U A, UAMIC #### [address] [address] Total Protein 6.9 G/dL Normal 5.7-8.2 [facility] ([place]) Comment on above: Result Comment: No te - New Reference Range in effect 20 Performed By: #### U A, UAMIC #### [address] [address] Urea nitrogen [Mass/Vol] 10.0 mg/dL Normal 8.0-22.0 [facility] ([place] Comment on above: Performed By: #### U A, UAMIC #### [address] [address] LABORATORYOrdered By: SYSTEM SYSTEM on 01-05-2024 Albumin BCP dye [Mass/Vol] 4.0 G/dL Normal 3.2 - 4.8 G/dL ADM SS Albumin/Globulin [Mass ratio] 1.4 {ratio} Normal 0.9 - 1.6 ratio AH ADM SS ALP [Catalytic activity/Vol] 98 U/L Normal 38 - 126 U/L AH ADM SS ALT No additional P-5'-P [Catalytic activity/Vol] 36 U/L Normal 12 - 55 U/L ADM SS AST [Catalytic activity/Vol] 48 U/L High 8 - 34 U/L AH ADM SS Basophils (Bld) [#/Vol] 0.1 103/mcL Normal 0.0 - 0.3 10^3/mcL AH Workflow SS Basophils/100 WBC (Bld) 0.7 % Normal 0.0 - 2.5 % AH Workflow SS Beta hydroxybutyrate [Mass/Vol] 41.42 mg/dL High 0.20 - 2.81 mg/dL AH ADM SS Bilirubin [Mass/Vol] 1.50 mg/dL High 0.20 - 1.20 mg/dL AH ADM SS Comment on above: Interpretive Data: U se of this assay is not recommended for patients undergoing treatment with eltrombopag due to the potential for falsely elevated results. Calcium [Mass/Vol] 9.6 mg/dL Normal 8.7 - 10. 4 mg/dL ADM SS Chloride [Moles/Vol] 101 mmol/L Normal 98 - 11 0 mEq/L ADM SS CO2 [Moles/Vol] 20 mmol/L Low 22 - 32 mEq/L ADM SS Creatinine [Mass/Vol] 0.85 mg/dL Normal 0.60 - 1.40 mg/dL ADM SS Electrolyte Balance 15.0 mEq/L Normal 4.0 - 15 .0 mEq/L ADM SS Eosinophils (Bld) [#/Vol] 0.1 103/mcL Normal 0.0 - 0.7 10^3/mcL Workflow SS Eosinophils/100 WBC (Bld) 1.3 % Normal 0.0 - 6.0 % Workflow SS Erythrocyte distribution width (RBC) [Ratio] 13.6 % Normal 11.5 - 15.5 % Workflow SS GFR/1.73 sq M.predicted among blacks MDRD (S/P/Bld) [Vol rate/Area] ml/min/1.73sqm Invalid Interpretation Code ADM SS Comment on above: Interpretive Data: GFR Population mean for , Non- Americans Ages 20-29 = 116 mL/min/1.73 sq.m. Ages 30-39 = 107 mL/min/1.73 sq.m. Ages 40-49 = 99 mL/min/1.73 sq.m. Ages 50-59 = 93 mL/min/1.73 sq.m. Ages 60-69 = 85 mL/min/1.73 sq.m. Ages 70+ = 75 mL/min/1.73 sq.m. Chronic Kidney Disease: Less than 60 mL/min/1.73 square meters End Stage Renal Disease: Less than 15 mL/min/1.73 square meters GFR/1.73 sq M.predicted among non-blacks MDRD (S/P/Bld) [Vol rate/Area] ml/min/1.73sqm Invalid Interpretation Code ADM SS Comment on above: Interpretive Data: GFR Population mean for , Non- Americans Ages 20-29 = 116 mL/min/1.73 sq.m. Ages 30-39 = 107 mL/min/1.73 sq.m. Ages 40-49 = 99 mL/min/1.73 sq.m. Ages 50-59 = 93 mL/min/1.73 sq.m. Ages 60-69 = 85 mL/min/1.73 sq.m. Ages 70+ = 75 mL/min/1.73 sq.m. Chronic Kidney Disease: Less than 60 mL/min/1.73 square meters End Stage Renal Disease: Less than 15 mL/min/1.73 square meters Globulin 2.9 G/dL Normal 1.5 - 3.8 G/dL AH ADM SS Glucose [Mass/Vol] 333 mg/dL High 70 - 110 mg/dL AH ADM SS Hematocrit (Bld) [Volume fraction] 42.7 % Normal 40.0 - 52.0 % AH Workflow SS Hemoglobin (Bld) [Mass/Vol] 14.8 G/dL Normal 13.0 - 17.5 G/dL AH Workflow SS Lymphocytes (Bld) [#/Vol] 2.0 103/mcL Normal 0.9 - 4.3 10^3/mcL AH Workflow SS Lymphocytes/100 WBC (Bld) 24.6 % Normal 20.0 - 40.0 % AH Workflow SS MCH (RBC) [Entitic mass] 31.5 pg Normal 27.0 - 33.0 pg AH Workflow SS MCHC 34.7 G/dL Normal 32.0 - 36.0 G/dL AH Workflow SS MCV (RBC) [Entitic vol] 90.8 fL Normal 81.0 - 100.0 fL AH Workflow SS Monocyte distribution width Auto (Bld) [Entitic vol] 15.55 1 Normal 0.00 - 20.00 AH Workflow SS Comment on above: Result Comment: For ED adult patients suspected of sepsis, MDW<=20.0 does not rule out sepsis or risk of sepsis Monocytes (Bld) [#/Vol] 0.7 103/mcL Normal 0.1 - 1.4 10^3/mcL AH Workflow SS Monocytes/100 WBC (Bld) 8.6 % Normal 2.0 - 13.0 % AH Workflow SS Neutrophils (Bld) [#/Vol] 5.2 103/mcL Normal 2.3 - 8.1 10^3/mcL AH Workflow SS Neutrophils/100 WBC (Bld) 64.8 % Normal 50.0 - 75.0 % AH Workflow SS Platelet mean volume (Bld) [Entitic vol] 8.4 fL Normal 6.4 - 10.5 fL Workflow SS Platelets (Bld) [#/Vol] 189 103/mcL Normal 150 - 450 10^3/mcL AH Workflow SS Potassium [Moles/Vol] 4.4 mmol/L Normal 3.5 - 5.0 mEq/L AH ADM SS Protein [Mass/Vol] 6.9 G/dL Normal 5.7 - 8.2 G/dL AH ADM SS Comment on above: Interpretive Data: * *Note - New Reference Range in effect 20 RBC (Bld) [#/Vol] 4.70 106/mcL Normal 4.50 - 6.0 0 10^6/mcL AH Workflow SS Sodium [Moles/Vol] 136 mmol/L Normal 136 - 145 mEq/L ADM SS Urea nitrogen [Mass/Vol] 10.0 mg/dL Normal 8.0 - 22.0 mg/dL ADM SS Urea nitrogen/Creatinine [Mass ratio] 11.8 ratio Normal 10.0 - 22.0 ratio ADM SS WBC (Bld) [#/Vol] 8.0 103/mcL Normal 4.5 - 10.8 10^3/mcL Workflow SS LABORATORYOrdered By: Марина Barrow on 01-05-2024 Glucose [Mass/Vol] 316 mg/dL High 70 - 110 mg/dL [facility] Work Phone: CVFLURVon 09-19-2023 FLU A PCR Negative Normal Negative [facility] ([place] Comment on above: Performed By: #### U A UAMIC #### [facility] [address] [place] [address] FLU B PCR Negative Normal Negative [facility] ([place]) Comment on above: Performed By: #### U A UAMIC #### [facility] [address] [place] [address] RSV PCR Negative Normal Negative [facility] ([place] Comment on above: Performed By: #### U A UAMIC #### [facility] [address] [place] [id number] SARS-CoV-2 (COVID-19) RNA VAISHALI+probe Ql (Unsp spec) Negative Normal Negative [facility] ([place] Comment on above: Result Comment: This test has been authorized by FDA under an EUA for use by authorized laboratories and has not been FDA cleared or approved. Results from the Xpert Xpress SARS-CoV-2/Flu/RSV or Xpert Xpress SARS-CoV-2 only test should be correlated with the clinical history, epidemiological data, and other data available to the clinician evaluating the patient. Performance of the Xpert Xpress SARS-CoV-2/Flu/RSV or Xpert Xpress SARS-CoV-2 only test has only been established in nasopharyngeal swab specimens. Erroneous test results might occur from improper specimen collection; failure to follow the recommended sample collection, handling, and storage procedures; technical error; or sample mix-up.False negative results may occur if virus is present at levels below the analytical limit of detection. Viral nucleic acid may persist in vivo, independent of virus viability. Detection of analyte target(s) does not imply that the corresponding virus(es) are infectious or are the causative agents for clinical symptoms.Recent patient exposure to FluMist or other live attenuated influenza vaccines may cause inaccurate positive results. Performed By: #### U A, UACANDIDA #### [address] [address] GLU POCon 09-19-2023 Perf Loc - POCT Tested at AM [facility]) Comment on above: Result Comment: [facility] [address] [place], [place] [address] Glucose [Mass/Vol] 126 mg/dL High 70-110 [facility]) Performing Instrument - POCT MASSED2 Normal [facility]) Perf Loc - POCT Tested at AM [facility]) Comment on above: Result Comment: [facility] [address] [place], [place] [address] Perf Loc - POCT Tested at AM [facility] ([place]) Comment on above: Result Comment: [facility] [address] [place], [place] [address] Glucose [Mass/Vol] 47 mg/dL Critically abnormal 70-110 [facility]) Performing Instrument - POCT MASSED2 Normal [facility] ([place] Glucose [Mass/Vol] 200 mg/dL High 70-110 [facility]) Performing Instrument - POCT MASSED1 [facility]) XR CHEST 1 VIEWon 09-19-2023 XR CHEST 1 VIEW ORIGINAL EXAMINATION: ONE XRAY VIEW OF THE CHEST 09/19/2023 10:58 am COMPARISON: 02/26/2023 HISTORY: ORDERING SYSTEM PROVIDED HISTORY: Reason for Exam: SOB, CP, COUGH X4 DAYS pain FINDINGS: 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 The lungs are without acute focal process. There is no effusion or pneumothorax. The cardiomediastinal silhouette is without acute process. The osseous structures are without acute process. IMPRESSION: No acute process. Interpreted by: Malick Hurt DO Preliminary Report By: Malick Hurt DO Electronically signed By Malick Hurt DO Dictated Date: 09/19/2023 11:03:23 AM Prelim Date: 09/19/2023 11:03:57 AM Sign Date: 09/19/2023 11:03:57 AM Ordering Provider: KING Eastman [facility]) Basophil percentageOrdered B y: Eliza Coker on 04-25-2023 Bilirubin [Mass/Vol] 0.60 mg/dL 0.20-1.00 [facility] Comment on above: For patients on eltr ombopag therapy, use of [employer] TBIL is not recommended. Chloride [Moles/Vol] 106 mmol/L 98-107 [facility] Glucose [Mass/Vol] 350 mg/dL 74-106 [facility] Comment on above: Glucose result great er than or equal to 200 mg/dLsuggests DIABETES MELLITUS per A.D.A. criteria. Potassium [Moles/Vol] 4.4 mmol/L 3.5-5.1 [facility] Protein [Mass/Vol] 6.4 g/dL 6.4-8.2 [facility] Sodium [Moles/Vol] 140 mmol/L 136-145 [facility] WBC (Bld) [#/Vol] 6.7 10*3/uL 4.4-11.0 [facility] Blood erythrocytes count (nu mber/volume)Ordered By: Eliza Coker on 04-25-2023 RBC (Bld) [#/Vol] 4.63 10*6/uL 4.6-6.2 [facility] Blood hemoglobin measurement (mass/volume)Ordered By: Eliza Coker on 04-25-2023 Hemoglobin (Bld) [Mass/Vol] 14.1 g/dL 13.0-16.5 [facility] Blood platelet mean volumeOr dered By: Eliza Coker on 04-25-2023 Platelet mean volume (Bld) [Entitic vol] 10.0 fL 6.2-12.0 [facility] Determination of erythrocyte mean corpuscular volume (MCV)Ordered By: Eliza Coker on 04-25-2023 MCV (RBC) [Entitic vol] 94.0 fL 80-94 [facility] Hematocrit Auto (Bld) [Volum e fraction]Ordered By: Eliza Coker on 04-25-2023 Hematocrit (Bld) [Volume fraction] 43.5 % 40-54 [facility] Laboratory - Chemistry and C hemistry - challengeOrdered By: [facility] Sheela on 04-25-2023 ALP [Catalytic activity/Vol] 91 U/L 45-117 [facility] ALT [Catalytic activity/Vol] 37 U/L 16-61 [facility] CO2 [Moles/Vol] 28.0 mmol/L 21.0-32.0 [facility] Free T4 [Mass/Vol] 0.59 ng/dL 0.76-1.46 [facility] Globulin (S) [Mass/Vol] 3.5 g/dL 2.2-4.2 [facility] T4 [Mass/Vol] 3.7 ug/dL 4.5-12.1 [facility] Urea nitrogen/Creatinine [Mass ratio] 11.5 mg/mg 10-20 [facility] Laboratory - Hematology and Cell countsOrdered By: Eliza Coker on 04-25-2023 Erythrocyte distribution width (RBC) [Entitic vol] 44.8 fL 35.1-43.9 [facility] Erythrocyte distribution width (RBC) [Ratio] 13.0 % 11.6-14.6 [facility] MCH (RBC) [Entitic mass] 30.5 pg 27.0-32.0 [facility] MCHC Auto (RBC) [Mass/Vol]Or dered By: Eliza Coker on 04-25-2023 MCHC (RBC) [Mass/Vol] 32.4 g/dL 32-36 [facility] No Panel InformationOrdered By: Eliza Coker on 04-25-2023 Estimated GFR (MDRD) Amer 100 mL/min >60 [facility] Comment on above: GFR Calc Estimated GFR (MDRD) Non-Af Amer 83 mL/min >60 [facility] Comment on above: Non- GFR Calc Free Triiodothyronine (T3) pg/dL 2.5 pg/mL 2.18-3.98 [facility] Thyroid Stimulating Hormone (TSH) 5.66 uIU/mL 0.358-3.74 [facility] Platelets bldOrdered By: Silas Coker on 04-25-2023 Platelets (Bld) [#/Vol] 210 10*3/uL 150-450 [facility] Serum or plasma albumin jake urement (mass/volume)Ordered By: Eliza Coker on 04-25-2023 Albumin [Mass/Vol] 2.9 g/dL 3.2-5.0 [facility] Serum or plasma albumin/glob ulin mass ratioOrdered By: Eliza Coker on 04-25-2023 Albumin/Globulin [Mass ratio] 0.8 {ratio} 0.9-2.4 [facility] Serum or plasma calcium jake urement (mass/volume)Ordered By: Eliza Coker on 04-25-2023 Calcium [Mass/Vol] 8.4 mg/dL 8.5-10.1 [facility] Serum or plasma creatinine m easurement (mass/volume)Ordered By: Eliza Coker on 04-25-2023 Creatinine [Mass/Vol] 1.04 mg/dL 0.70-1.30 [facility] Comment on above: The validity of the calculated GFR & GFRAA in patients over 70 years has not been determined. Clinical correlation is essential. Serum or plasma urea nitroge n measurement (mass/volume)Ordered By: Eliza Coker on 04-25-2023 Urea nitrogen [Mass/Vol] 12 mg/dL 7-18 [facility] Thin prep Papanicolaou smear with manual screeningOrdered By: Eliza Coker on 04-25-2023 Thin prep Papanicolaou smear with manual screening 32 U/L 15-37 [facility] Thin prep Papanicolaou smear with manual screening 6 5-15 [facility] Whole blood hemoglobin A1c/t otal hemoglobin ratio (mass fraction)Ordered By: Eliza Coker on 04-25-2023 HbA1c (Bld) [Mass fraction] 8.2 % 3.8-5.6 [facility] Comment on above: Normal < 5.7 % Predi abetic 5.7 - 6.4 % Diabetic >or= 6.5 % Please note range changes. Glucose Glucometer (BldC) [M ass/Vol]Ordered By: Melquiades Patel on 03-20-2023 Glucose [Mass/Vol] 242 mg/dL 74-106 [facility] Comment on above: MANAGEMENT OF PATIEN T CARE PER NURSING PROTOCOL LABORATORYOrdered By: Jennifer Hernandez on 02-16-2023 Glucose [Mass/Vol] 421 mg/dL Invalid Interpretation Code 70 - 110 mg/dL [facility] Work Phone: Glucose [Mass/Vol] 483 mg/dL Invalid Interpretation Code 70 - 110 mg/dL [facility] Work Phone: LABORATORYOrdered By: SYSTEM SYSTEM on 02-16-2023 Albumin BCP dye [Mass/Vol] 3.9 G/dL Invalid Interpretation Code 3.2 - 4.8 G/dL ADM SS Albumin/Globulin [Mass ratio] 1.1 {ratio} Invalid Interpretation Code 0.9 - 1.6 ratio ADM SS ALP [Catalytic activity/Vol] 119 U/L Invalid Interpretation Code 38 - 126 U/L ADM SS ALT No additional P-5'-P [Catalytic activity/Vol] 30 U/L Invalid Interpretation Code 12 - 55 U/L ADM SS AST [Catalytic activity/Vol] 38 U/L Invalid Interpretation Code 8 - 34 U/L ADM SS Basophils (Bld) [#/Vol] 0.1 103/mcL Invalid Interpretation Code 0.0 - 0.3 10^3/mcL Workflow SS Basophils/100 WBC (Bld) 1.2 % Invalid Interpretation Code 0.0 - 2.5 % Workflow SS Bilirubin [Mass/Vol] 1.40 mg/dL Invalid Interpretation Code 0.20 - 1.20 mg/dL ADM SS Comment on above: Interpretive Data: U se of this assay is not recommended for patients undergoing treatment with eltrombopag due to the potential for falsely elevated results. Calcium [Mass/Vol] 9.0 mg/dL Invalid Interpretation Code 8.7 - 10.4 mg/dL ADM SS Chloride [Moles/Vol] 98 mmol/L Invalid Interpretation Code 98 - 110 mEq/L ADM SS CO2 [Moles/Vol] 25 mmol/L Invalid Interpretation Code 22 - 32 mEq/L AH ADM SS Creatinine [Mass/Vol] 0.66 mg/dL Invalid Interpretation Code 0.60 - 1.40 mg/dL AH ADM SS Electrolyte Balance 11.0 mEq/L Invalid Interpretation Code 4.0 - 15.0 mEq/L AH ADM SS Eosinophils (Bld) [#/Vol] 0.1 103/mcL Invalid Interpretation Code 0.0 - 0.7 10^3/mcL AH Workflow SS Eosinophils/100 WBC (Bld) 2.2 % Invalid Interpretation Code 0.0 - 6.0 % AH Workflow SS Erythrocyte distribution width (RBC) [Ratio] 12.9 % Invalid Interpretation Code 11.5 - 15.5 % AH Workflow SS GFR/1.73 sq M.predicted among blacks MDRD (S/P/Bld) [Vol rate/Area] ml/min/1.73sqm Invalid Interpretation Code AH ADM SS Comment on above: Interpretive Data: GFR Population mean for , Non- Americans Ages 20-29 = 116 mL/min/1.73 sq.m. Ages 30-39 = 107 mL/min/1.73 sq.m. Ages 40-49 = 99 mL/min/1.73 sq.m. Ages 50-59 = 93 mL/min/1.73 sq.m. Ages 60-69 = 85 mL/min/1.73 sq.m. Ages 70+ = 75 mL/min/1.73 sq.m. Chronic Kidney Disease: Less than 60 mL/min/1.73 square meters End Stage Renal Disease: Less than 15 mL/min/1.73 square meters GFR/1.73 sq M.predicted among non-blacks MDRD (S/P/Bld) [Vol rate/Area] ml/min/1.73sqm Invalid Interpretation Code AH ADM SS Comment on above: Interpretive Data: GFR Population mean for , Non- Americans Ages 20-29 = 116 mL/min/1.73 sq.m. Ages 30-39 = 107 mL/min/1.73 sq.m. Ages 40-49 = 99 mL/min/1.73 sq.m. Ages 50-59 = 93 mL/min/1.73 sq.m. Ages 60-69 = 85 mL/min/1.73 sq.m. Ages 70+ = 75 mL/min/1.73 sq.m. Chronic Kidney Disease: Less than 60 mL/min/1.73 square meters End Stage Renal Disease: Less than 15 mL/min/1.73 square meters Globulin 3.4 G/dL Invalid Interpretation Code 1.5 - 3.8 G/dL AH ADM SS Glucose [Mass/Vol] 545 mg/dL Invalid Interpretation Code 70 - 110 mg/dL AH ADM SS Comment on above: Result Comment: read back by Nurys Quinones Hematocrit (Bld) [Volume fraction] 43.8 % Invalid Interpretation Code 40.0 - 52.0 % AH Workflow SS Hemoglobin (Bld) [Mass/Vol] 14.8 G/dL Invalid Interpretation Code 13.0 - 17.5 G/dL AH Workflow SS Lymphocytes (Bld) [#/Vol] 1.6 103/mcL Invalid Interpretation Code 0.9 - 4.3 10^3/mcL AH Workflow SS Lymphocytes/100 WBC (Bld) 27.6 % Invalid Interpretation Code 20.0 - 40.0 % AH Workflow SS MCH (RBC) [Entitic mass] 31.7 pg Invalid Interpretation Code 27.0 - 33.0 pg AH Workflow SS MCHC 33.9 G/dL Invalid Interpretation Code 32.0 - 36.0 G/dL AH Workflow SS MCV (RBC) [Entitic vol] 93.5 fL Invalid Interpretation Code 81.0 - 100.0 fL AH Workflow SS Monocyte distribution width Auto (Bld) [Entitic vol] 16.51 1 Invalid Interpretation Code 0.00 - 20.00 AH Workflow SS Comment on above: Result Comment: For ED adult patients suspected of sepsis, MDW<=20.0 does not rule out sepsis or risk of sepsis Monocytes (Bld) [#/Vol] 0.4 103/mcL Invalid Interpretation Code 0.1 - 1.4 10^3/mcL AH Workflow SS Monocytes/100 WBC (Bld) 7.0 % Invalid Interpretation Code 2.0 - 13.0 % AH Workflow SS Neutrophils (Bld) [#/Vol] 3.6 103/mcL Invalid Interpretation Code 2.3 - 8.1 10^3/mcL AH Workflow SS Neutrophils/100 WBC (Bld) 62.0 % Invalid Interpretation Code 50.0 - 75.0 % AH Workflow SS Platelet mean volume (Bld) [Entitic vol] 8.1 fL Invalid Interpretation Code 6.4 - 10.5 fL AH Workflow SS Platelets (Bld) [#/Vol] 193 103/mcL Invalid Interpretation Code 150 - 450 10^3/mcL AH Workflow SS Potassium [Moles/Vol] 4.1 mmol/L Invalid Interpretation Code 3.5 - 5.0 mEq/L AH ADM SS Comment on above: Result Comment: Spec imen slightly hemolyzed. Protein [Mass/Vol] 7.3 G/dL Invalid Interpretation Code 5.7 - 8.2 G/dL AH ADM SS Comment on above: Interpretive Data: * *Note - New Reference Range in effect 20 RBC (Bld) [#/Vol] 4.68 106/mcL Invalid Interpretation Code 4.50 - 6.00 10^6/mcL AH Workflow SS Sodium [Moles/Vol] 134 mmol/L Invalid Interpretation Code 136 - 145 mEq/L AH ADM SS Troponin I.cardiac DL <= 0.01 ng/mL [Mass/Vol] 9.06 ng/L Invalid Interpretation Code 0.00 - 54.00 ng/L AH ADM SS Comment on above: Interpretive Data: I f the High Sensitive Troponin result is below the 99th percentile value (<45 ng/L) at the first blood draw, at least two additional blood samples should be drawn before results are interpreted as negative for AMI. Urea nitrogen [Mass/Vol] 12.0 mg/dL Invalid Interpretation Code 8.0 - 22.0 mg/dL AH ADM SS Urea nitrogen/Creatinine [Mass ratio] 18.2 ratio Invalid Interpretation Code 10.0 - 22.0 ratio AH ADM SS WBC (Bld) [#/Vol] 5.8 103/mcL Invalid Interpretation Code 4.5 - 10.8 10^3/mcL AH Workflow SS LABORATORYOrdered By: Lakisha Solomon on 02-16-2023 Appearance (U) Clear (02/16/23 11:31 AM) Invalid Interpretation Code Clear AH Auto Urine SS Bilirubin Ql (U) Negative (02/16/23 11:31 AM) Invalid Interpretation Code Neg-Trace AH Auto Urine SS Color (U) Yellow (02/16/23 11:31 AM) Invalid Interpretation Code AH Auto Urine SS Glucose Test strip (U) [Mass/Vol] >=1000 mg/dL Invalid Interpretation Code Negative AH Auto Urine SS Hemoglobin Auto test strip (U) [Mass/Vol] Negative (02/16/23 11:31 AM) Invalid Interpretation Code Neg-Trace AH Auto Urine SS Ketones Ql (U) 80 mg/dL Invalid Interpretation Code Neg-Trace AH Auto Urine SS UA Leuk Est Negative (02/16/23 11:31 AM) Invalid Interpretation Code Negative AH Auto Urine SS UA Nitrite Negative (02/16/23 11:31 AM) Invalid Interpretation Code Negative AH Auto Urine SS UA pH 5.5 (02/16/23 11:31 AM) Invalid Interpretation Code 5.0 - 8.0 AH Auto Urine SS UA Protein Negative Invalid Interpretation Code Negative AH Auto Urine SS UA Spec Grav >=1.030 *ABN* (02/16/23 11:31 AM) Invalid Interpretation Code 1.006-1.029 AH Auto Urine SS UA Specimen Type Clean Catch (02/16/23 11:31 AM) Invalid Interpretation Code AH Auto Urine SS UA Urobilinogen 0.2 E.U./dL Invalid Interpretation Code 0.2-1.0 AH Auto Urine SS LABORATORYOrdered By: Anh Diaz on 02-16-2023 MRSA DNA VAISHALI+probe Ql (Unsp spec) Not Detected 1 (02/16/23 11:31 AM) Invalid Interpretation Code Not Detected AH Auto Viro/Sero SS Comment on above: Result Comment: [place] [id number] MRSA PCR Int MRSA DNA not detecte d by Real-Time Polymerase Chain Reaction (PCR). A negative result may be due to intermittent colonization. Colonization may vary depending on patient treatment, patient status, or exposure to high-risk environments.As with all PCR based in vitro diagnostic tests, extremely low levels of target below the limit of detection of the assay may be detected, but results may not be reproducible. Invalid Interpretation Code AH Auto Viro/Sero SS LABORATORYOrdered By: Aga Cullen on 02-16-2023 Blood Glucose Testing Reason Routine (02/16/23 11:19 AM) [facility] Work Phone: Blood Glucose, Capillary Out of Range Critical High (02/16/23 11:19 AM) [facility] Work Phone: Glucose [Mass/Vol] 500 mg/dL Invalid Interpretation Code 70 - 110 mg/dL [facility] Work Phone: Time of Stated Blood Glucose [id number] [facility] Work Phone: Comprehensive metabolic 1998 panelOrdered By: Anabel Lamb on 08-25-2022 Albumin [Mass/Vol] 4.0 g/dL 3.5 - 5.0 g/dL [facility] ALP [Catalytic activity/Vol] 118 U/L 38 - 126 U/L [facility] ALT [Catalytic activity/Vol] 18 U/L 0 - 49 U/L [facility] Anion gap [Moles/Vol] 23 mmol/L High 3 - 13 mmol/L [facility] AST [Catalytic activity/Vol] 27 U/L 15 - 46 U/L [facility] Bilirubin [Mass/Vol] 1.2 mg/dL 0.2 - 1 .3 mg/dL [facility] Calcium [Mass/Vol] 8.9 mg/dL 8.4 - 10. 4 mg/dL [facility] Chloride [Moles/Vol] 93 mmol/L Low 98 - 10 7 mmol/L [facility] CO2 [Moles/Vol] 14 mmol/L Low 22 - 30 mmol/L [facility] Creatinine [Mass/Vol] 1.30 mg/dL High 0.66 - 1.25 mg/dL [facility] GFR/1.73 sq M.predicted MDRD (S/P/Bld) [Vol rate/Area] 69.9 mL/min/{1.73_m2} - PINF [facility] Comment on above: Calculation based on the Chronic Kidney Disease Epidemiology Collaboration (CKD-EPI) equation refit without adjustment for race Glucose [Mass/Vol] 650 mg/dL Critically high 70 - 1 00 mg/dL [facility] Interpretation and review of laboratory results Abnormal [facility] Potassium [Moles/Vol] 5.3 mmol/L High 3.5 - 5.1 mmol/L [facility] Protein [Mass/Vol] 6.5 g/dL 6.3 - 8.2 g/dL [facility] Sodium [Moles/Vol] 130 mmol/L Low 135 - 145 mmol/L [facility] Urea nitrogen [Mass/Vol] 16 mg/dL 9 - 20 mg/dL [facility] HbA1c (Bld) [Mass fraction]o n 08-25-2022 Glucose [Mass/Vol] 235 mg/dL [facility] HbA1c (Bld) [Mass/Vol] 9.8 % High NINF - 5.7 % [facility] Comment on above: Normal less than 5.7 % Prediabetes 5.7% to 6.4% Diabetes 6.5% or higher --HgbA1C levels may not be accurate in patients who have renal disease, received recent blood transfusions, are anemic, or who have dyshemoglobinemia. Interpretation and review of laboratory results Abnormal [facility] Laboratory - Chemistry and C hemistry - challengeon 08-25-2022 Glucose [Mass/Vol] mg/dL High 70 - 100 mg/dL [facility] Comment on above: Caregiver Notified; Beta hydroxybutyrate [Mass/Vol] 81.50 mg/dL High 0.20 - 2.81 mg/dL [facility] Magnesium [Mass/Vol] 1.4 mg/dL Low 1.6 - 2 .3 mg/dL [facility] Troponin I.cardiac [Mass/Vol] ng/mL 0.000 - 0.034 ng/mL [facility] Base excess Calc (BldV) [Moles/Vol] -10.80834 mmol/L Low -3 - 3 mmol/L [facility] CO2 (BldV) [Partial pressure] 24.3 mm[Hg] Low [facility] CO2 [Moles/Vol] 14.1 mmol/L Low 24.0 - 28.0 mmol/L [facility] HCO3 (Bld) [Moles/Vol] 13.4 mmol/L Low 23.0 - 27.0 mmol/L [facility] Oxygen (BldV) [Partial pressure] 39.0 mm[Hg] [facility] pH (BldV) 7.349 [pH] 7.330 - 7.430 pH [facility] Glucose [Mass/Vol] mg/dL High 70 - 100 mg/dL [facility] Comment on above: Caregiver Notified; Laboratory - Chemistry and C hemistry - challengeOrdered By: Mari Carlisle on 08-25-2022 Lactate [Moles/Vol] 4.2 mmol/L Critically high 0.7 - 2.0 mmol/L [facility] Magnesium [Mass/Vol]on 08-25 Interpretation and review of laboratory results Abnormal [facility] No Panel Informationon 08-25 Interpretation and review of laboratory results Abnormal [facility] Performed by: [facility], [address] [place] [id number] CLIA ID: [id number] [facility] Interpretation and review of laboratory results Abnormal [facility] P [place] 79 degrees [facility] IA Interval 178 ms [facility] QRS [place] 97 degrees [facility] QRSD Interval 104 ms [facility] QT Interval 357 ms [facility] QTC Interval 466 ms [facility] T Wave [place] 22 degrees [facility] Sinus tachycardia Biatrial enlargement Borderline right axis deviation Compared to ECG 10/20/2021 11:40:35 Atrial abnormality now present Sinus rhythm no longer present Possible ischemia no longer present Electronically Signed On 08-25-2022 18:02:54 EST by Dulce Maria Barba Dulce Maria Patel MD - 08/25/2022 IMPRESSION: Sinus tachycardia Biatrial enlargement Borderline right axis deviation Compared to ECG 10/20/2021 11:40:35 Atrial abnormality now present Sinus rhythm no longer present Possible ischemia no longer present Electronically Signed On 08-25-2022 18:02:54 EST by Dulce Maria Barba [facility] [id number] [facility] Comment on above: Performed by CLIA ID : [id number] [place], [place] ?Device: [id number] Chargeback Specialist ID: [id number] Interpretation and review of laboratory results Abnormal [facility] Performed by: [facility] [place], [address] [place] [id number] CLIA ID: [id number] [facility] Interpretation and review of laboratory results Abnormal [facility] Performed by: [facility], [address] [place] [address] CLIA ID: [id number] [facility] No Panel InformationOrdered By: Mari Carlisle on 08-25-2022 Interpretation and review of laboratory results Abnormal [facility] Troponin I.cardiac [Mass/Vol ]on 02-15-2023 Interpretation and review of laboratory results Normal [facility] Patients with high l evels of Biotin oral intake (ie >5 mg/day) may have falsely decreased Troponin levels. [facility] [employer] Vital signson 08-25-2022 Heart rate 102 /min bpm [facility] Oxygen saturation in Venous blood 72.4 % 60.0 - 80.0 % [facility] HEMOGLOBIN A1C (POC)on 07-21 HbA1c (Bld) [Mass fraction] 8.9 % Abnormal 4.2 - 5.6 % [facility] HEMOGLOBIN A1C (POC)on 01-22 HbA1c (Bld) [Mass fraction] 8.1 % Abnormal 4.2 - 5.6 % [facility] CT CHEST CARDIAC WO IVCONon 12-31-2021 [facility] LIPID PANEL, NONFASTINGon Cholesterol [Mass/Vol] 204 mg/dL High <200 mg/dL [facility] HDL Cholesterol, Nonfasting 65 mg/dL >39 mg/dL [facility] LDL Cholesterol, Nonfasting 114 mg/dL High <100 mg/dL [facility] LDL/HDL Ratio, Nonfasting 1.75 mg/dL <2.54 mg/dL [facility] Non HDL Cholesterol, Nonfasting 139 mg/dL High <130 mg/dL [facility] Total Chol/HDL Ratio, Nonfasting 3.14 mg/dL <5.10 mg/dL [facility] Triglycerides, Nonfasting 127 mg/dL <150 mg/dL [facility] VLDL Cholesterol, Nonfasting 25 mg/dL <30 mg/dL [facility] NT PRO BNPon 12-31-2021 Natriuretic peptide.B prohormone N-Terminal [Mass/Vol] <50 <125 pg/mL [facility] STRESS ECHO TREADMILLon 12-10 [facility] XR CHEST 2V FRONTAL/LATon [facility] Glucose,Bedsideon 11-12-2021 Glucose [Mass/Vol] 263 mg/dL High 70-100 [facility] Comment on above: Result Comment: Test performed by glucose meter. Results may be 10%-15% lower than serum/plasma values. (CLIA ID [id number]) Performed By: #### B GLU #### [facility] [employer] [address] [id number] Brain Natriuretic Peptideon 10-20-2021 Natriuretic peptide B (Bld) [Mass/Vol] 70 pg/mL 0 - 125 pg/mL [facility] CBC with Auto Differentialon 10-20-2021 Absolute Baso # 0.1 10*3/uL 0.0 - 0.2 10*3/uL [facility] Absolute Neut # 3.2 10*3/uL 1.8 - 7.0 10*3/uL [facility] Basophils/100 WBC (Bld) 1.0 % 0.0 - 2.0 % [facility] Eosinophils (Bld) [#/Vol] 0.2 10*3/uL 0.0 - 0.5 10*3/uL [facility] Eosinophils/100 WBC (Bld) 3.9 % 1.0 - 6.0 % [facility] Granulocytes/100 WBC (Bld) 53.6 % 40.0 - 80.0 % [facility] Hematocrit (Bld) [Volume fraction] 40.6 % 40.0 - 52.0 % [facility] Hemoglobin.gastroint estinal spec 1 Ql (Stl) 14.2 g/dL 13.0 - 18.0 g/dL [facility] Interpretation and review of laboratory results Abnormal [facility] Lymphocytes (Bld) [#/Vol] 1.8 10*3/uL 1.0 - 4.3 10*3/uL [facility] Lymphocytes/100 WBC (Bld) 30.0 % 20.0 - 40.0 % [facility] MCH (RBC) [Entitic mass] 31.5 pg 26.0 - 34.0 pg [facility] MCHC (RBC) [Mass/Vol] 35.1 % 32.0 - 36.0 % [facility] MCV (RBC) [Entitic vol] 89.9 fL 80.0 - 98.0 fL [facility] Monocytes (Bld) [#/Vol] 0.7 10*3/uL 0.0 - 0.8 10*3/uL [facility] Monocytes/100 WBC (Bld) 11.5 % High 2.0 - 10.0 % [facility] Platelet distribution width (Bld) [Ratio] 13.0 % 11.5 - 14.5 % [facility] Platelet mean volume (Bld) [Entitic vol] 8.1 fL 7.4 - 10.4 fL [facility] Platelets (Bld) [#/Vol] 199 10*3/uL 140 - 440 10*3/uL [facility] RBC (Bld) [#/Vol] 4.51 10*6/uL 4.40 - 5.9 0 10*6/[facility]L [facility]ld[facility] [#/Vol] 6.0 10*3/uL 3.6 - 10.7 10*3/uL [facility] Test Performed by [facility], [address], [place], [place] [address] [facility] CR Chest Portableon 10-21-19 22 CR Chest Portable Patient Name: LUISITO ZHONG Diagnostic Radiology ACCESSION EXAM DATE/TIME PROCEDURE ORDERING PROVIDER [id number] 10/20/2021 11:49 EDT CR Chest Portable QAMAR GRESHAM DANIEL M CPT code 07173 Reason For Exam (CR Chest Portable) dyspnea Report INDICATION:Dyspnea PORTABLE CHEST: COMPARISON: 12/25/2018. No focal areas of consolidation. No pleural effusions or edema. No pneumothorax. Normal heart size. Midline sternotomy wires noted. IMPRESSION: No acute intrathoracic process. Report Dictated on Final Dictating Physician: MD BLANKENSHIP LAURA Signed Date and Time: 10/20/2021 12:26 pm Signed by: MD BLANKENSHIP LAURA Transcribed Date and Time: 10/20/2021 12:27 Normal [facility] Comp Metabolic Panelon 10-20 ALP [Catalytic activity/Vol] 59 U/L Normal 38-126 [facility] Comment on above: Performed By: #### H EMDF, TROPN, BNP3, CMP3 #### [facility] [address] [place] [address] ALT [Catalytic activity/Vol] 23 U/L Normal 0-49 [facility] Comment on above: Result Comment: The ALT test is performed by an updated assay method. Please note that the reference intervals have been changed and are now sex specific. Performed By: #### H EMDF, TROPN, BNP3, CMP3 #### [facility] [address] [place] [address] Anion gap [Moles/Vol] 3 mmol/L Normal 3-13 [facility] Comment on above: Performed By: #### H EMDF, TROPN, BNP3, CMP3 #### [facility] [address] [place] [address] AST [Catalytic activity/Vol] 31 U/L Normal 15-46 [facility] Comment on above: Performed By: #### H EMDF, TROPN, BNP3, CMP3 #### [facility] [address] [place] [address] Bilirubin [Mass/Vol] 0.7 mg/dL Normal 0.2-1.3 [facility] Comment on above: Performed By: #### H EMDF, TROPN, BNP3, CMP3 #### [facility] [address] [place] [address] Calcium [Mass/Vol] 9.3 mg/dL Normal 8.4-10.4 [facility] Comment on above: Performed By: #### H EMDF, TROPN, BNP3, CMP3 #### [facility] [address] [place] [address] CO2 [Moles/Vol] 29 mmol/L Normal 22-30 [facility] Comment on above: Performed By: #### H EMDF, TROPN, BNP3, CMP3 #### [facility] [address] [place] [address] Creatinine [Mass/Vol] 0.87 mg/dL Normal 0.52-1.25 [facility] Comment on above: Performed By: #### H EMDF, TROPN, BNP3, CMP3 #### [facility] [address] [place] [address] eGFR OTHER > 90.0 Normal >60 [facility] Comment on above: Result Comment: KDIG O guidelines provide the following GFR categories: Stage GFR(ml/min/1.73 m2) Terms G1 >=90 Normal or high G2 60-89 Mildly decreased* G3a 45-59 Mildly to moderately decreased G3b 30-44 Moderately to severely decreased G4 15-29 Severely decreased G5 <15 Kidney failure *Relative to young adult level. In the absence of evidence of kidney damage, neither GFR category G1 nor G2 fulfill the criteria for CKD. The CKD-EPI equation is validated in individuals 18 years of age and older. Currently the best equation for estimating glomerular filtration rate (GFR) from serum creatinine in children is the Bedside Tian equation. It is less accurate in patients with extremes of muscle mass, restriction of dietary protein, ingestion of creatine, extra-renal metabolism of creatinine, or treatment with medications that affect renal tubular creatinine secretion. Performed By: #### H EMDF, TROPN, BNP3, CMP3 #### [facility] [address] [place] [address] GFR/1.73 sq M.predicted among blacks MDRD (S/P/Bld) [Vol rate/Area] mL/min/{1.73_m2} Normal >60 [facility] Comment on above: Performed By: #### H EMDF, TROPN, BNP3, CMP3 #### [facility] [address] [place] [address] Glucose [Mass/Vol] 97 mg/dL Normal 70-100 [facility] Comment on above: Performed By: #### H EMDF, TROPN, BNP3, CMP3 #### [facility] [address] [place] [address] Protein [Mass/Vol] 6.8 g/dL Normal 6.3-8.2 [facility] Comment on above: Performed By: #### H EMDF, TROPN, BNP3, CMP3 #### [facility] [address] [place] [address] Urea nitrogen [Mass/Vol] 13 mg/dL Normal 7-17 [facility] Comment on above: Performed By: #### H EMDF, TROPN, BNP3, CMP3 #### [facility] [address] [place] [address] Albumin [Mass/Vol] 3.8 g/dL Normal 3.5-5.0 [facility] Comment on above: Performed By: #### H EMDF, TROPN, BNP3, CMP3 #### [facility] [address] [place] [address] Potassium [Moles/Vol] 3.8 mmol/L Normal 3.5-5.1 [facility] Comment on above: Performed By: #### H EMDF, TROPN, BNP3, CMP3 #### [facility] [address] [place] [address] Sodium [Moles/Vol] 139 mmol/L Normal 135-145 [facility] Comment on above: Performed By: #### H EMDF, TROPN, BNP3, CMP3 #### [facility] [address] [place] [address] Chloride [Moles/Vol] 106 mmol/L Normal 98-107 [facility] Comment on above: Performed By: #### H EMDF, TROPN, BNP3, CMP3 #### [facility] [address] [place] [address] Comprehensive Metabolic Pane manan 10-20-2021 Albumin [Mass/Vol] 3.8 g/dL 3.5 - 5.0 g/dL [facility] ALP (Bld) [Catalytic activity/Vol] 59 U/L 38 - 126 U/L [facility] ALT [Catalytic activity/Vol] 23 U/L 0 - 49 U/L [facility] Comment on above: The ALT test is perf ormed by an updated assay method. Please note that the reference intervals have been changed and are now sex specific. Anion gap [Moles/Vol] 3 mmol/L 3 - 13 mmol/L [facility] AST [Catalytic activity/Vol] 31 U/L 15 - 46 U/L [facility] Bilirubin [Mass/Vol] 0.7 mg/dL 0.2 - 1 .3 mg/dL [facility] Calcium [Mass/Vol] 9.3 mg/dL 8.4 - 10. 4 mg/dL [facility] Chloride [Moles/Vol] 106 mmol/L 98 - 10 7 mmol/L [facility] CO2 [Moles/Vol] 29 mmol/L 22 - 30 mmol/L [facility] Creatinine [Mass/Vol] 0.87 mg/dL 0.52 - 1.25 mg/dL [facility] EGFR IF NonAfrican Guyanese >90.0 >60 mL/min [facility] Comment on above: KDIGO guidelines pro vide the following GFR categories: Stage GFR(ml/min/1.73 m2) Terms G1 >=90 Normal or high G2 60-89 Mildly decreased* G3a 45-59 Mildly to moderately decreased G3b 30-44 Moderately to severely decreased G4 15-29 Severely decreased G5 <15 Kidney failure *Relative to young adult level. In the absence of evidence of kidney damage, neither GFR category G1 nor G2 fulfill the criteria for CKD. The CKD-EPI equation is validated in individuals 18 years of age and older. Currently the best equation for estimating glomerular filtration rate (GFR) from serum creatinine in children is the Bedside Tian equation. It is less accurate in patients with extremes of muscle mass, restriction of dietary protein, ingestion of creatine, extra-renal metabolism of creatinine, or treatment with medications that affect renal tubular creatinine secretion. Free PSA/Total PSA [Mass fraction] 6.8 g/dL 6.3 - 8.2 g/dL [facility] GFR/1.73 sq M.predicted among blacks MDRD (S/P/Bld) [Vol rate/Area] mL/min/{1.73_m2} >60 mL/min [facility] Glucose [Mass/Vol] 97 mg/dL 70 - 100 mg/dL [facility] Potassium [Moles/Vol] 3.8 mmol/L 3.5 - 5.1 mmol/L [facility] Sodium [Moles/Vol] 139 mmol/L 135 - 145 mmol/L [facility] Urea nitrogen (BldV) [Mass/Vol] 13 mg/dL 7 - 17 mg/dL [facility] Test Performed by [facility], [address], [place], [place] [address] [place] [address] LAB [facility] D-Dimer, Innovanceon D-Dimer, Innovance 0.28 mg/L Normal <0.19-0.50 [facility] Comment on above: Result Comment: Inno cotto D-Dimer values of <0.50 mg/L FEU can be used in combination with a pre-test probability model (e.g. Well's) to exclude pulmonary embolism (PE) disease, as well as an aid in the diagnosis of deep vein thrombosis (DVT). Performed By: #### D DI2 #### [facility] [address] [place] [address] D-Dimer, Quantitativeon 10-09 D-Dimer, Quant 0.28 mg/L <0.19 - 0.50 [facility] Comment on above: Innovance D-Dimer va lues of <0.50 mg/L FEU can be used in combination with a pre-test probability model (e.g. Well's) to exclude pulmonary embolism (PE) disease, as well as an aid in the diagnosis of deep vein thrombosis (DVT). Test Performed by [facility], [address], [place], [place] [address] [facility] ED Provider Noteon 2 ED Provider Note Emergency Department Encounter [facility] ED Patient: Luisito Zhong : 1980 Date of Evaluation: 10/20/2021 ED Supervising Physician: Dulce Maria Cooper DO This will serve as my supervisory note and shared attestation. I independently examined and evaluated Luisito Zhong and performed a substantive portion of the visit including all aspects of the medical decision making. In brief, Luisito Zhong is a 41 y.o. male that presents to the emergency department with progressive shortness of breath recently that is now associated with some sharp left-sided chest pain that is mostly present with a deep breath. Had a negative heart catheterization about 3 years ago prior to his open heart surgery for subaortic stenosis. He says that he had a recent [facility] that showed that his subaortic membrane is growing back and they are considering when to do a repeat surgery. He has not had any coronary artery evaluations since his cath about 3 years ago. Focused exam: Vital signs noted. Well-appearing patient lying in bed, normal respiratory pattern without conversational dyspnea or respiratory distress. Speech and mental status normal. Radial pulses 2+ and symmetrical bilaterally. Brief ED course/MDM: I personally saw the patient and performed a substantive portion of the visit including all aspects of the medical decision making. Suspicion for pulmonary embolism is low to moderate, but his description of symptoms with sharp pain worsened with a deep breath make D-dimer testing warranted. He is on a beta-leodan which could potentially mass tachycardia associated with a PE. He has not used crack in 3 months, I am not suspicious for dissection. 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 All diagnostic, treatment, and disposition decisions were made by myself in conjunction with the EFE. For all further details of the patient's emergency department visit, please see their documentation. (Please note that portions of this note may have been completed with a voice recognition program. Efforts were made to edit the dictations but occasionally words are mis-transcribed.) Dulce Maria Cooper, DO [employer] Dulce Maria Cooper DO 10/20/21 1211 Normal [facility] ED Provider Note [facility] ED eMERGENCY dEPARTMENT eNCOUnter Pt Name: Luisito Zhong Birthdate 1980 Date of evaluation: 10/20/2021 Provider: Casey Gresham APRN - QAMAR This patient was seen in conjunction with Dr. Cooper CHIEF COMPLAINT Chief Complaint Patient presents with ? Shortness of Breath HISTORY OF PRESENT ILLNESS (Location/Symptom, Timing/Onset,Context/Settin g, Quality, Duration, Modifying Factors, Severity) Note limiting factors. HPI Luisito Zhong is a 41 y.o. male who presents to the emergency department with shortness of breath. For the last several weeks. Patient complains of shortness of breath but states he has been getting some left-sided chest pain and pain up into the left shoulder intermittently this lasting seconds to maybe a minute or 2. He has a history of subaortic stenosis he had to have a procedure for an aortic valve replacement in 2019 he states shortness of breath is what he got when his aortic valve got bad, saw Dr. Dr. Luz Maria Perez in the had an echocardiogram that showed 61% ejection fraction and the aortic valve was not well-visualized so he had a [facility] that showed trileaflet aortic valve mildly thickened leaflets and early systolic preclosure was observed consistent with fixed subvalvular stenosis and moderate regurg. States he may need to have another procedure but he states on the 20 of november to have a second opinion at [facility]. Nursing Notes were reviewed. REVIEW OF SYSTEMS (2+ for4; 10+ for level 5) Review of Systems Constitutional: Negative for activity change, appetite change, chills and fever. HENT: Negative for congestion, ear discharge, ear pain, hearing loss, postnasal drip, rhinorrhea and sore throat. Eyes: Negative for discharge and redness. Respiratory: Positive for shortness of breath. Negative for cough, chest tightness and wheezing. Cardiovascular: Positive for chest pain. Negative for palpitations. Gastrointestinal: Negative for abdominal pain, diarrhea, nausea and vomiting. Genitourinary: Negative for dysuria. Musculoskeletal: Negative for arthralgias and myalgias. Skin: Negative for color change. Neurological: Negative for dizziness, tremors, syncope, weakness, light-headedness and headaches. Hematological: Negative for adenopathy. Psychiatric/Behavioral: Negative for agitation and confusion. All other systems reviewed and are negative. PAST MEDICAL HISTORY Past Medical History: Diagnosis Date ? Anxiety ? Aortic stenosis ? Carpal tunnel syndrome 2018 right ? Cocaine abuse (HCC) ? Depression ? Diabetes mellitus type 1 (HCC) 1983 ? Hyperlipidemia ? Thyroid disease SURGICALHISTORY Past Surgical History: Procedure Laterality Date ? CARPAL TUNNEL RELEASE ? ELBOW SURGERY Right 2018 cubital tunnel syndrome ? HIP SURGERY Right ? OTHER SURGICAL HISTORY Left 11/30/2018 Carpel Tunnel ? 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 SHOULDER SURGERY Left 2013 adhesive capsulitis CHASE and arthroscopy CURRENT MEDICATIONS Previous Medications ALBUTEROL SULFATE HFA (VENTOLIN HFA) 108 (90 BASE) MCG/ACT INHALER Inhale 2 puffs into the lungs 4 times daily as needed for Wheezing BLOOD GLUCOSE MONITOR STRIPS Test 5 times a day & as needed for symptoms of irregular blood glucose. DULOXETINE (CYMBALTA) 30 MG EXTENDED RELEASE CAPSULE Take 1 capsule by mouth daily ESCITALOPRAM (LEXAPRO) 20 MG TABLET TAKE 1 TABLET BY MOUTH DAILY INSULIN LISPRO (HUMALOG) 100 UNIT/ML INJECTION VIAL INJECT 125 UNITS EVERY DAY VIA PUMP ACCORDING TO SLIDING SCALE INSULIN PEN NEEDLE (PEN NEEDLES) 31G X 6 MM MISC As directed AC and HS. LANCETS MISC Use as directed 5x day. LEVOTHYROXINE (SYNTHROID) 125 MCG TABLET TAKE ONE TABLET BY MOUTH EVERY MORNING ON EMPTY STOMACH METOPROLOL SUCCINATE (TOPROL XL) 50 MG EXTENDED RELEASE TABLET Take 1 tablet by mouth daily Dilaudid [hydromorphone hcl] FAMILY HISTORY Family History Problem Relation Age of Onset ? No Known Problems Mother ? No Known Problems Father ? Other Sister MS ? Heart Disease Paternal Grandmother ? Colon Cancer Maternal Grandmother SOCIAL HISTORY Social History Socioeconomic History ? Marital status: Single Spouse name: None ? Number of children: None ? Years of education: None ? Highest education level: None Occupational History ? None Tobacco Use ? Smoking status: Former Smoker Packs/day: 1.00 Years: 20.00 Pack years: 20.00 Types: Cigarettes Quit date: 07/13/2018 Years since quittin.2 ? Smokeless tobacco: Never Used Vaping Use ? Vaping Use: Never used Substance and Sexual Activity ? Alcohol use: No ? Drug use: Not Currently Types: Cocaine Comment: relapse 3 months ago ? Sexual activity: Not Currently Other Topics Concern ? None Social History Narrative ? None Social Determinants of Health Financial Resource St (more content not included)... Normal [facility] EKG 12 Lead - Chest Painon 0 10-20-2021 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 No acute ischemic changes. Electronically Signed On 10-20-2021 11:56:15 EDT by Dulce Maria [facility] Dulce Maria Cooper, - 10/20/2021 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 No acute ischemic changes. Electronically Signed On 10-20-2021 11:56:15 EDT by Dulce Maria Cooper [facility] Work Phone: EKG 12 Lead - Chest PainOrde red By: Dulce Maria Cooper on 10-20-2021 [facility] Work Phone: Hemogram w/ [employer] 10-20 Abs Baso Cnt 0.1 10*3/uL Normal 0.0-0.2 [facility] Comment on above: Performed By: #### H EMDF, TROPN, BNP3, CMP3 #### [facility] [employer] [facility] [address] [place] [address] Abs Neutrophile Cnt 3.2 10*3/uL Normal 1.8-7.0 [facility] Comment on above: Performed By: #### H EMDF, TROPN, BNP3, CMP3 #### [facility] [address] [place] [address] Basophils/100 WBC (Bld) 1.0 % Normal 0.0-2.0 [facility] Comment on above: Performed By: #### H EMDF, TROPN, BNP3, CMP3 #### [facility] [address] [place] [address] Eosinophils (Bld) [#/Vol] 0.2 10*3/uL Normal 0.0-0.5 [facility] Comment on above: Performed By: #### H EMDF, TROPN, BNP3, CMP3 #### [facility] [address] [place] [address] Eosinophils/100 WBC (Bld) 3.9 % Normal 1.0-6.0 [facility] Comment on above: Performed By: #### H EMDF, TROPN, BNP3, CMP3 #### [facility] [address] [place] [address] Erythrocyte distribution width (RBC) [Ratio] 13.0 % Normal 11.5-14.5 [facility] Comment on above: Performed By: #### H EMDF, TROPN, BNP3, CMP3 #### [facility] [address] [place] [address] Granulocytes/100 WBC (Bld) 53.6 % Normal 40.0-80.0 [facility] Comment on above: Performed By: #### H EMDF, TROPN, BNP3, CMP3 #### [facility] [address] [place] [address] Hematocrit (Bld) [Volume fraction] 40.6 % Normal 40.0-52.0 [facility] Comment on above: Performed By: #### H EMDF, TROPN, BNP3, CMP3 #### [facility] [address] [place] [address] Hemoglobin (Bld) [Mass/Vol] 14.2 g/dL Normal 13.0-18.0 [facility] Comment on above: Performed By: #### H EMDF, TROPN, BNP3, CMP3 #### [facility] [address] [place] [address] Lymphocytes (Bld) [#/Vol] 1.8 10*3/uL Normal 1.0-4.3 [facility] Comment on above: Performed By: #### H EMDF, TROPN, BNP3, CMP3 #### [facility] [address] [place] [address] Lymphocytes/100 WBC (Bld) 30.0 % Normal 20.0-40.0 [facility] Comment on above: Performed By: #### H EMDF, TROPN, BNP3, CMP3 #### [facility] [address] [place] [address] MCH (RBC) [Entitic mass] 31.5 pg Normal 26.0-34.0 [facility] Comment on above: Performed By: #### H EMDF, TROPN, BNP3, CMP3 #### [facility] [address] [place] [address] MCHC 35.1 % Normal 32.0-36.0 [facility] Comment on above: Performed By: #### H EMDF, TROPN, BNP3, CMP3 #### [facility] [address] [place] [address] MCV (RBC) [Entitic vol] 89.9 fL Normal 80.0-98.0 [facility] Comment on above: Performed By: #### H EMDF, TROPN, BNP3, CMP3 #### [facility] [address] [place] [address] Monocytes (Bld) [#/Vol] 0.7 10*3/uL Normal 0.0-0.8 [facility] Comment on above: Performed By: #### H EMDF, TROPN, BNP3, CMP3 #### [facility] [address] [place] [address] Monocytes/100 WBC (Bld) 11.5 % High 2.0-10.0 [facility] Comment on above: Performed By: #### H EMDF, TROPN, BNP3, CMP3 #### [facility] [address] [place] [address] Platelet mean volume (Bld) [Entitic vol] 8.1 fL Normal 7.4-10.4 [facility] Comment on above: Performed By: #### H EMDF, TROPN, BNP3, CMP3 #### [facility] [address] [place] [address] Platelets (Bld) [#/Vol] 199 10*3/uL Normal 140-440 [facility] Comment on above: Performed By: #### H EMDF, TROPN, BNP3, CMP3 #### [facility] [address] [place] [address] RBC (Bld) [#/Vol] 4.51 10*6/uL Normal 4.40-5.90 [facility] Comment on above: Performed By: #### H EMDF, TROPN, BNP3, CMP3 #### [place] [address] [place] [address] WBC (Bld) [#/Vol] 6.0 10*3/uL Normal 3.6-10.7 [facility] Comment on above: Performed By: #### H EMDF, TROPN, BNP3, CMP3 #### [facility] [address] [place] [address] NT pro BNPon 10-20-2021 Natriuretic peptide B (Bld) [Mass/Vol] 70 pg/mL Normal 0-125 [facility] Comment on above: Performed By: #### H EMDF, TROPN, BNP3, CMP3 #### [facility] [address] [place] [address] No Panel Informationon 10-20 Test Performed by [facility], [address] [place], [place] [address] [facility] Troponin Ion 10-20-2021 Troponin I.cardiac [Mass/Vol] ng/mL Normal 0.000-0.034 [facility] Comment on above: Result Comment: . Performed By: #### H EMDF, TROPN, BNP3, CMP3 #### [facility] [address] [place] [address] Troponin x1on 10-20-2021 Troponin I.cardiac [Mass/Vol] ng/mL 0.000 - 0.034 ng/mL [facility] Comment on above: . XR CHEST PORTABLEon 10-21-19 Patient Name: LUISITO ZHONG [facility]#: [id number] Diagnostic Radiology ACCESSION EXAM DATE/TIME PROCEDURE ORDERING PROVIDER [id number] 10/20/2021 11:49 EDT CR Chest Portable QAMAR GRESHAM DANIEL M CPT code 63281 Reason For Exam (CR Chest Portable) dyspnea Report INDICATION:Dyspnea PORTABLE CHEST: COMPARISON: 12/25/2018. No focal areas of consolidation. No pleural effusions or edema. No pneumothorax. Normal heart size. Midline sternotomy wires noted. IMPRESSION: No acute intrathoracic process. Report Dictated on --- Final --- Dictating Physician: MD BLANKENSHIP LAURA Signed Date and Time: 10/20/2021 12:26 pm Signed by: MD BLANKENSHIP LAURA Transcribed Date and Time: 10/20/2021 12:27 [facility] Cindy Blankenship MD - 10/20/2021 [id number] Radiology ACCESSION EXAM DATE/TIME PROCEDURE ORDERING PROVIDER [id number] 10/20/2021 11:49 EDT CR Chest Portable MARGA QAMARCASEY CPT code 02124 Reason For Exam (CR Chest Portable) dyspnea Report INDICATION:Dyspnea PORTABLE CHEST: COMPARISON: 12/25/2018. No focal areas of consolidation. No pleural effusions or edema. No pneumothorax. Normal heart size. Midline sternotomy wires noted. IMPRESSION: No acute intrathoracic process. Report Dictated on --- Final --- Dictating Physician: MD BLANKENSHIP LAURA Signed Date and Time: 10/20/2021 12:26 pm Signed by: MD BLANKENSHIP LAURA Transcribed Date and Time: 10/20/2021 12:27 [facility] Work Phone: Radiology Study observation (narrative) [facility] Work Phone: XR CHEST PORTABLEOrdered By: Cindy Blankenship on 10-20-2021 [facility] Work Phone: Echo 2D/3D [facility] w/wo Contrast on 10-07-2021 Echo 2D/3D [facility] w/wo Contrast Patient Name: LUISITO ZHONG Ultrasound ACCESSION EXAM DATE/TIME PROCEDURE ORDERING PROVIDER [id number] 10/07/2021 09:20 EDT Echo 2D/3D [facility] w/wo SHELLY TAVERAS, ERIKA Marques Contrast Reason For Exam (Echo 2D/3D [facility] w/wo Contrast) subaortic stenosis Report TRANSESOPHAGEAL ECHOCARDIOGRAM PATIENT: Luisito Zhong STUDY DATE: 10/07/2021 : 1980 AGE: 41 HT/WT: 182.9 cm (72 127.3 kg (280 in) lb) GENDER: M BP: 81 / 52 LOCATION: [facility] [employer] [facility] PATIENT Outpatient main STATUS: *ORDERING PHYSICIAN: * Erika TaverasREADING PHYSICIAN: * Yosef Nicole INDICATIONS: Subaortic stenosis. CONCLUSIONS SUMMARY: 1. Left ventricle: The outflow tract shows moderate membranous anterior obstruction just below the right coronary cusp. The LVOT area by 3D guided 2D planimetry during systole is 2.4 cm2. The max (X) min diameters are 2.0 cm (X) 1.4 cm. The membrane width is about 5-6 mm. Color Doppler shows flow acceleration within the LVOT at the level of the subaortic membrane which is impacting on the aortic valve leaflets. 2. Aortic valve: Trileaflet; mildly thickened leaflets. Early systolic pre-closure is observed, consistent with fixed subvalvular stenosis. There is moderate regurgitation (vena contracta 0.39 cm). STUDY DATA: Transesophageal echocardiography was performed. Procedure: Initial setup. Surface ECG leads, blood pressure measurements, and pulse oximetric signals were monitored. Image quality was excellent. A transesophageal probe was inserted by the attending cardiologistwithout difficulty. Complete 2D, 3D, complete spectral Doppler, and color flow Doppler images were acquired and archived for permanent storage and are available for subsequent review. Study status: Routine. Patient status: Outpatient. Location: [facility] laboratory. Consent: The risks, benefits, and alternatives to the procedure were explained to the patient and informed consent was obtained. Administered medications: Propofol. ECG RHYTHM: NSR Ultrasound Report FINDINGS LEFT VENTRICLE: The cavity size is normal. Wall thickness is normal. Systolic function is normal. The estimated ejection fraction is 55%. The outflow tract shows moderate membranous anterior obstruction just below the right coronary cusp. The LVOT area by 3D guided 2D planimetry during systole is 2.4 cm2. The max (X) min diameters are 2.0 cm (X) 1.4 cm. The membrane width is about 5-6 mm. RIGHT VENTRICLE: The cavity size is normal. Systolic function is normal. LEFT ATRIUM: The atrium is normal in size. There is no evidence of a thrombus in the atrial cavity or appendage. No spontaneous echo contrast is observed. The appendage is of normal size. Emptying velocity is normal. RIGHT ATRIUM: The atrium is normal in size. ATRIAL SEPTUM: The interatrial septum is normal. No evidence of patent foramen ovale or atrial septal defect. No evidence of interatrial shunt by color Doppler or with injection of agitated saline contrast. MITRAL VALVE: Structurally normal valve. Doppler: There is trivial, less than 1+ regurgitation. AORTIC VALVE: Trileaflet; mildly thickened leaflets. Early systolic pre-closure is observed, consistent with fixed subvalvular stenosis. Doppler: There is no stenosis. There is moderate, 2+ regurgitation. Dimensionless index: 0.18. The mean systolic gradient is 15 mm Hg. The peak systolic gradient is 25 mm Hg. The peak systolic velocity is 2.5 m/sec. TRICUSPID VALVE: Structurally normal valve. Doppler: There is trivial, less than 1+ regurgitation. PULMONIC VALVE: Structurally normal valve. Doppler: There is trivial, less than 1+ regurgitation. AORTA: The aortic root and ascending aorta are normal in size. The visualized portions of the arch and descending aorta are normal in size. PULMONARY ARTERY: The main pulmonary artery is normal in size. PERICARDIUM: There is no pericardial effusion. PULMONARY VEINS: Left upper pulmonary vein: Normal sized. The Doppler velocity and flow profile are normal. Right upper pulmonary vein: Normal sized. The Doppler velocity and flow profile are normal. Measurements Left ventricle Value 09/23/2021 LV ejection time 330 ms LVOT Value 09/23/2021 LVOT ID, S 1.7 cm LVOT area 2.2 cm^2 Stroke volume (SV), LVOT DP 24 ml 67 Stroke index (SV/bsa), LVOT DP 9 ml/m^2 26 Aortic valve Value 09/23/2021 Aortic valve peak velocity, S 2.5 m/sec 3.6 Aortic valve mean velocity, S 1 (more content not included)... Normal [facility] [employer] [facility] Glucose,[facility]side[facility] 10-07-2021 Glucose [Mass/Vol] 349 mg/dL High 70-100 [employer]Instruction by [employer] [facility] Comment on above: Result Comment: Test performed by glucose meter. Results may be 10%-15% lower than serum/plasma values. (CLIA ID [id number]) Performed By: #### B GLU #### [employer]ruction by [employer] [facility] [address] [place] [address] ECHO Complete 2D W Doppler W [place] 09-23-2021 TRANSTHORACIC ECHOCARDIOGRAM PATIENT: Luisito Zhong STUDY DATE: 09/23/2021 : 1980 AGE: 41 HT/WT: 182.9 cm (72 127 kg in) (279.4 lb) GENDER: M BP: 138 / 90 LOCATION: eInstruction by [employer] PATIENT Outpatient [facility] [address] STATUS: *ORDERING PHYSICIAN: * Erika Taveras *READING PHYSICIAN: * Sandra, *GORE INSERTER: * Hillary Robin MD [place] INDICATIONS: Shortness of breath. CONCLUSIONS SUMMARY: 1. Left ventricle: Systolic function is normal by the biplane method of disks. The estimated ejection fraction is 61%. 2. Aortic valve: Not well visualized. Trileaflet; mildly thickened leaflets. There is mild, 1+ regurgitation. The peak systolic velocity is 3.6 m/sec. The mean systolic gradient is 26 mm Hg. The peak systolic gradient is 53 mm Hg. 3. Technically difficult study. RECOMMENDATIONS: The aortic valve was not well visualized. Further evaluation may be necessary. STUDY DATA: Complete transthoracic echocardiogram. Procedure: Image quality was fair. M-mode, complete 2D, complete spectral Doppler, and color flow Doppler images were acquired and archived for permanent storage and are available for subsequent review. Study status: Routine. Patient status: Outpatient. ECG RHYTHM: NSR FINDINGS LEFT VENTRICLE: The cavity size is normal. Wall thickness is normal. Systolic function is normal by the biplane method of disks. The estimated ejection fraction is 61%. There are no regional wall motion abnormalities. Left ventricular diastolic function parameters are normal. RIGHT VENTRICLE: The cavity size is normal. Systolic function is normal. Right ventricular systolic pressure is within the normal range. VENTRICULAR SEPTUM: There is no evidence of a ventricular septal defect. LEFT ATRIUM: The atrium is normal in size. RIGHT ATRIUM: The atrium is mildly dilated. ATRIAL SEPTUM: Color Doppler shows no shunt. MITRAL VALVE: Structurally normal valve. Doppler: There is no regurgitation. The peak diastolic gradient is 8 mm Hg. AORTIC VALVE: Not well visualized. Trileaflet; mildly thickened leaflets. Doppler: There is mild, 1+ regurgitation. Dimensionless index: 0.33. The valve area by the velocity-time integral method is 0.9 cm^2. The valve area index by the velocity-time integral method is 0.3 cm^2/m^2. The mean systolic gradient is 26 mm Hg. The peak systolic gradient is 53 mm Hg. The peak systolic velocity is 3.6 m/sec. TRICUSPID VALVE: Structurally normal valve. Doppler: There is trivial, less than 1+ regurgitation. PULMONIC VALVE: Structurally normal valve. Doppler: There is trivial, less than 1+ regurgitation. AORTA: The aorta is normal. PULMONARY ARTERY: Main pulmonary artery: Normal. PERICARDIUM: There is no pericardial effusion. SYSTEMIC VEINS: Inferior vena cava: The vessel is normal. The IVC collapses by greater than 50% with inspiration. Measurements Value 01/10/2019 Reference Ascending aorta ID, A-P, S 2.9 cm 2.7 --------- Ascending aorta ID/bsa, 1.1 cm/m^2 --------- A-P, S Left ventricle Value 01/10/2019 Reference LV ID, ED 5.4 cm 4.3 4.2 - 5.8 LV ID, ES 3.1 cm 2.6 2.5 - 4.0 LV ID/bsa, ED (L) 2.1 cm/m^2 2.2 - 3.0 LV ID/bsa, ES (L) 1.2 cm/m^2 1.3 - 2.1 LV PW thickness, ED (H) 1.1 cm 1.6 0.6 - 1.0 LV PW/LV ID ratio, ED 0.21 --------- LV wall mass (H) 230 g 96 - 200 LV wall mass/bsa 89 g/m^2 50 - 102 Stroke volume/bsa, 1-p A2C 28.9 ml/m^2 --------- LV end-diastolic volume, (H) 189 ml 145 69 - 185 1-p A4C LV end-systolic volume, 54 ml 48 22 - 78 1-p A4C LV end-diastolic volume, (H) 176 ml 154 62 - 150 2-p LV end-systolic volume, (H) 69 ml 52 21 - 61 2-p LV ejection fraction, 2-p 61 % 66 52 - 72 LV E/e', lateral 17 12.7 --------- LV E/e (more content not included)... [facility] Hillary Flores MD - 09/23/2021 TRANSTHORACIC ECHOCARDIOGRAM PATIENT: Luisito Zhong STUDY DATE: 09/23/2021 : 1980 AGE: 41 HT/WT: 182.9 cm (72 127 kg in) (279.4 lb) GENDER: M BP: 138 / 90 LOCATION: [place] [address] [address]IENT [address] STATUS: *ORDERING PHYSICIAN: * Erika Taveras *READING PHYSICIAN: * Sandra, *GORE INSERTER: * Hillary Robin MD [place] INDICATIONS: Shortness of breath. CONCLUSIONS SUMMARY: 1. Left ventricle: Systolic function is normal by the biplane method of disks. The estimated ejection fraction is 61%. 2. Aortic valve: Not well visualized. Trileaflet; mildly thickened leaflets. There is mild, 1+ regurgitation. The peak systolic velocity is 3.6 m/sec. The mean systolic gradient is 26 mm Hg. The peak systolic gradient is 53 mm Hg. 3. Technically difficult study. RECOMMENDATIONS: The aortic valve was not well visualized. Further evaluation may be necessary. STUDY DATA: Complete transthoracic echocardiogram. Procedure: Image quality was fair. M-mode, complete 2D, complete spectral Doppler, and color flow Doppler images were acquired and archived for permanent storage and are available for subsequent review. Study status: Routine. Patient status: Outpatient. ECG RHYTHM: NSR FINDINGS LEFT VENTRICLE: The cavity size is normal. Wall thickness is normal. Systolic function is normal by the biplane method of disks. The estimated ejection fraction is 61%. There are no regional wall motion abnormalities. Left ventricular diastolic function parameters are normal. RIGHT VENTRICLE: The cavity size is normal. Systolic function is normal. Right ventricular systolic pressure is within the normal range. VENTRICULAR SEPTUM: There is no evidence of a ventricular septal defect. LEFT ATRIUM: The atrium is normal in size. RIGHT ATRIUM: The atrium is mildly dilated. ATRIAL SEPTUM: Color Doppler shows no shunt. MITRAL VALVE: Structurally normal valve. Doppler: There is no regurgitation. The peak diastolic gradient is 8 mm Hg. AORTIC VALVE: Not well visualized. Trileaflet; mildly thickened leaflets. Doppler: There is mild, 1+ regurgitation. Dimensionless index: 0.33. The valve area by the velocity-time integral method is 0.9 cm^2. The valve area index by the velocity-time integral method is 0.3 cm^2/m^2. The mean systolic gradient is 26 mm Hg. The peak systolic gradient is 53 mm Hg. The peak systolic velocity is 3.6 m/sec. TRICUSPID VALVE: Structurally normal valve. Doppler: There is trivial, less than 1+ regurgitation. PULMONIC VALVE: Structurally normal valve. Doppler: There is trivial, less than 1+ regurgitation. AORTA: The aorta is normal. PULMONARY ARTERY: Main pulmonary artery: Normal. PERICARDIUM: There is no pericardial effusion. SYSTEMIC VEINS: Inferior vena cava: The vessel is normal. The IVC collapses by greater than 50% with inspiration. Measurements Value 01/10/2019 Reference Ascending aorta ID, A-P, S 2.9 cm 2.7 --------- Ascending aorta ID/bsa, 1.1 cm/m^2 --------- A-P, S Left ventricle Value 01/10/2019 Reference LV ID, ED 5.4 cm 4.3 4.2 - 5.8 LV ID, ES 3.1 cm 2.6 2.5 - 4.0 LV ID/bsa, ED (L) 2.1 cm/m^2 2.2 - 3.0 LV ID/bsa, ES (L) 1.2 cm/m^2 1.3 - 2.1 LV PW thickness, ED (H) 1.1 cm 1.6 0.6 - 1.0 LV PW/LV ID ratio, ED 0.21 --------- LV wall mass (H) 230 g 96 - 200 LV wall mass/bsa 89 g/m^2 50 - 102 Stroke volume/bsa, 1-p A2C 28.9 ml/m^2 --------- LV end-diastolic volume, (H) 189 ml 145 69 - 185 1-p A4C LV end-systolic volume, 54 ml 48 22 - 78 1-p A4C LV end-diastolic volume, (H) 176 ml 154 62 - 150 2-p LV end-systolic volume, (H) 69 ml 52 21 - 61 2-p LV ejection fraction, 2-p 61 % 66 52 - 72 LV E/e', lateral 17 12.7 --------- LV E/e', medial 12.5 11.6 --------- LV E/e', average 14.4 12.1 --------- Ventricular septum Value 01/10/2019 Reference IVS thickness, ED 1.0 cm 1.3 0.6 - 1.0 LVOT Value 01/10/2019 Reference LVOT ID, A-P 1.8 cm 1.9 --------- LVOT mean velocity, S 0.7 m/sec 1.1 --------- LVOT peak gradient, S 4 mm Hg 10 --------- Stroke volume (SV), LVOT 67 ml 91 --------- DP Stroke index (SV/bsa), 26 ml/m^2 37 --------- LVOT DP Aortic valve Value 01/10/2019 Reference Aortic valve peak 3.6 m/sec 2.9 --------- velocity, S Aortic valve mean 2.3 m/sec 1.7 --------- velocity, S Aortic mean gra (more content not included)... [employer] Work Phone: ECHO Complete 2D W Doppler W ColorOrdered By: Hillary Flores on 09-23-2021 [employer] Work Phone: Echo Complete w/wo Contrasto n 09-23-2021 Echo Complete w/wo Contrast Patient Name: LUISITO ZHONG Ultrasound ACCESSION EXAM DATE/TIME PROCEDURE ORDERING PROVIDER [id number] 09/23/2021 16:11 EDT Echo Complete w/wo SHELLY TAVERAS DOMINIC S Contrast Reason For Exam (Echo Complete w/wo Contrast) SOB Report TRANSTHORACIC ECHOCARDIOGRAM PATIENT: Luisito Zhong STUDY DATE: 09/23/2021 [facility]#: [id number] : 1980 AGE: 41 HT/WT: 182.9 cm (72 127 kg in) (279.4 lb) GENDER: M BP: 138 / 90 LOCATION: [employer] PATIENT Outpatient [address] STATUS: *ORDERING PHYSICIAN: * Erika Taveras *READING PHYSICIAN: * Sandra, *GORE INSERTER: * Hillary Robin MD [place] INDICATIONS: Shortness of breath. CONCLUSIONS SUMMARY: 1. Left ventricle: Systolic function is normal by the biplane method of disks. The estimated ejection fraction is 61%. 2. Aortic valve: Not well visualized. Trileaflet; mildly thickened leaflets. There is mild, 1+ regurgitation. The peak systolic velocity is 3.6 m/sec. The mean systolic gradient is 26 mm Hg. The peak systolic gradient is 53 mm Hg. 3. Technically difficult study. RECOMMENDATIONS: The aortic valve was not well visualized. Further evaluation may be necessary. STUDY DATA: Complete transthoracic echocardiogram. Procedure: Image quality was fair. M-mode, complete 2D, complete spectral Doppler, and color flow Doppler images were acquired and archived for permanent storage and are available for subsequent review. Study status: Routine. Patient status: Outpatient. ECG RHYTHM: NSR FINDINGS LEFT VENTRICLE: The cavity size is normal. Wall thickness is normal. Systolic function is normal by the biplane method of disks. The estimated ejection fraction is 61%. There are no regional wall motion Ultrasound Report abnormalities. Left ventricular diastolic function parameters are normal. RIGHT VENTRICLE: The cavity size is normal. Systolic function is normal. Right ventricular systolic pressure is within the normal range. VENTRICULAR SEPTUM: There is no evidence of a ventricular septal defect. LEFT ATRIUM: The atrium is normal in size. RIGHT ATRIUM: The atrium is mildly dilated. ATRIAL SEPTUM: Color Doppler shows no shunt. MITRAL VALVE: Structurally normal valve. Doppler: There is no regurgitation. The peak diastolic gradient is 8 mm Hg. AORTIC VALVE: Not well visualized. Trileaflet; mildly thickened leaflets. Doppler: There is mild, 1+ regurgitation. Dimensionless index: 0.33. The valve area by the velocity-time integral method is 0.9 cm^2. The valve area index by the velocity-time integral method is 0.3 cm^2/m^2. The mean systolic gradient is 26 mm Hg. The peak systolic gradient is 53 mm Hg. The peak systolic velocity is 3.6 m/sec. TRICUSPID VALVE: Structurally normal valve. Doppler: There is trivial, less than 1+ regurgitation. PULMONIC VALVE: Structurally normal valve. Doppler: There is trivial, less than 1+ regurgitation. AORTA: The aorta is normal. PULMONARY ARTERY: Main pulmonary artery: Normal. PERICARDIUM: There is no pericardial effusion. SYSTEMIC VEINS: Inferior vena cava: The vessel is normal. The IVC collapses by greater than 50% with inspiration. Measurements Value 01/10/2019 Reference Ascending aorta ID, A-P, S 2.9 cm 2.7 --------- Ascending aorta ID/bsa, 1.1 cm/m^2 --------- A-P, S Left ventricle Value 01/10/2019 Reference LV ID, ED 5.4 cm 4.3 4.2 - 5.8 LV ID, ES 3.1 cm 2.6 2.5 - 4.0 LV ID/bsa, ED (L) 2.1 cm/m^2 2.2 - 3.0 LV ID/bsa, ES (L) 1.2 cm/m^2 1.3 - 2.1 LV PW thickness, ED (H) 1.1 cm 1.6 0.6 - 1.0 LV PW/LV ID ratio, ED 0.21 --------- LV wall mass (H) 230 g 96 - 200 LV wall mass/bsa 89 g/m^2 50 - 102 Stroke volume/bsa, 1-p A2C 28.9 ml/m^2 --------- LV end-diastolic volume, (H) 189 ml 145 69 - 185 1-p A4C LV end-systolic volume, 54 ml 48 22 - 78 1-p A4C LV end-diastolic volume, (H) 176 ml 154 62 - 150 2-p LV end-systolic volume, (H) 69 ml 52 21 - 61 2-p LV ejection fraction, 2-p 61 % 66 52 - 72 LV E/e', lateral 17 12.7 --------- LV E/e', medial 12.5 11.6 --------- LV E/e', average 14.4 12.1 --------- Ventricular septum Value 01/10/2019 Reference IVS thickness, ED 1.0 cm 1.3 0.6 - 1.0 Ultrasound Report LVOT Value 01/10/2019 Reference LVOT ID, A-P 1.8 cm 1.9 --------- LVOT mean velocity, S 0.7 m/sec 1.1 --------- LVOT peak gradient, S 4 mm Hg 10 --------- Stroke volume (SV), LVOT 67 ml 91 --------- DP Stroke in (more content not included)... Normal [facility] LABORATORYOrdered By: Elvin Schwartz on 07-23-2021 Glucose [Mass/Vol] 144 mg/dL Invalid Interpretation Code 70 - 110 mg/dL [facility] Work Phone: LABORATORYOrdered By: SYSTEM SYSTEM on 07-23-2021 Magnesium [Mass/Vol] 1.6 mg/dL Invalid Interpretation Code 1.6 - 2.4 mg/dL ADM SS Phosphate [Mass/Vol] 2.1 mg/dL Invalid Interpretation Code 2.5 - 4.5 mg/dL ADM SS Calcium [Mass/Vol] 8.6 mg/dL Invalid Interpretation Code 8.7 - 10.4 mg/dL ADM SS Chloride [Moles/Vol] 111 mmol/L Invalid Interpretation Code 98 - 110 mEq/L ADM SS CO2 [Moles/Vol] 22 mmol/L Invalid Interpretation Code 22 - 32 mEq/L ADM SS Creatinine [Mass/Vol] 0.87 mg/dL Invalid Interpretation Code 0.60 - 1.40 mg/dL ADM SS Electrolyte Balance 9.0 mEq/L Invalid Interpretation Code 4.0 - 15.0 mEq/L ADM SS GFR/1.73 sq M.predicted among blacks MDRD (S/P/Bld) [Vol rate/Area] ml/min/1.73sqm Invalid Interpretation Code Chemistry S GFR/1.73 sq M.predicted among non-blacks MDRD (S/P/Bld) [Vol rate/Area] ml/min/1.73sqm Invalid Interpretation Code Chemistry S Glucose [Mass/Vol] 110 mg/dL Invalid Interpretation Code 70 - 110 mg/dL ADM SS HbA1c (Bld) [Mass fraction] 8.2 % Invalid Interpretation Code 4.0 - 6.0 % Auto Chem SS Magnesium [Mass/Vol] 1.7 mg/dL Invalid Interpretation Code 1.6 - 2.4 mg/dL ADM SS Phosphate [Mass/Vol] 1.7 mg/dL Invalid Interpretation Code 2.4 - 5.1 mg/dL ADM SS Potassium [Moles/Vol] 3.4 mmol/L Invalid Interpretation Code 3.5 - 5.0 mEq/L ADM SS Comment on above: Result Comment: Spec imen slightly hemolyzed. Sodium [Moles/Vol] 142 mmol/L Invalid Interpretation Code 136 - 145 mEq/L ADM SS TSH Qn 112.096 mIU/mL Invalid Interpretation Code 0.550 - 4.780 mIU/mL ADM SS Urea nitrogen [Mass/Vol] 10.0 mg/dL Invalid Interpretation Code 8.0 - 22.0 mg/dL ADM SS Urea nitrogen/Creatinine [Mass ratio] 11.5 ratio Invalid Interpretation Code 10.0 - 22.0 ratio ADM SS LABORATORYOrdered By: Homar carty on 07-23-2021 Glucose [Mass/Vol] 58 mg/dL Invalid Interpretation Code 70 - 110 mg/dL [facility] Work Phone: LABORATORYOrdered By: Yadi Chanel on 07-23-2021 Cholesterol [Mass/Vol] 195 mg/dL Invalid Interpretation Code 50 - 199 mg/dL ADM SS Cholesterol in HDL [Mass/Vol] 34 mg/dL Invalid Interpretation Code 40 - 59 mg/dL ADM SS Cholesterol in LDL [Mass/Vol] 139 mg/dL Invalid Interpretation Code 0 - 129 mg/dL ADM SS Triglyceride [Mass/Vol] 112 mg/dL Invalid Interpretation Code 3 - 149 mg/dL ADM SS LABORATORYOrdered By: Fabricio Bach on 07-23-2021 Glucose [Mass/Vol] 142 mg/dL Invalid Interpretation Code 70 - 110 mg/dL [facility] Work Phone: LABORATORYOrdered By: SYSTEM SYSTEM on 07-22-2021 Base excess Calc (BldMV) [Moles/Vol] 15.0 mEq/L Invalid Interpretation Code 4.0 - 15.0 mEq/L ADM SS Calcium [Mass/Vol] 8.9 mg/dL Invalid Interpretation Code 8.4 - 10.1 mg/dL ADM SS Chloride [Moles/Vol] 106 mmol/L Invalid Interpretation Code 98 - 110 mEq/L ADM SS CO2 [Moles/Vol] 15 mmol/L Invalid Interpretation Code 22 - 32 mEq/L ADM SS Creatinine [Mass/Vol] 0.89 mg/dL Invalid Interpretation Code 0.60 - 1.40 mg/dL ADM SS GFR/1.73 sq M.predicted among blacks MDRD (S/P/Bld) [Vol rate/Area] ml/min/1.73sqm Invalid Interpretation Code ADM SS GFR/1.73 sq M.predicted among non-blacks MDRD (S/P/Bld) [Vol rate/Area] ml/min/1.73sqm Invalid Interpretation Code ADM SS Glucose [Mass/Vol] 171 mg/dL Invalid Interpretation Code 70 - 110 mg/dL ADM SS Potassium [Moles/Vol] 3.9 mmol/L Invalid Interpretation Code 3.5 - 5.0 mEq/L ADM SS Sodium [Moles/Vol] 136 mmol/L Invalid Interpretation Code 136 - 145 mEq/L ADM SS Urea nitrogen [Mass/Vol] 12.0 mg/dL Invalid Interpretation Code 8.0 - 22.0 mg/dL ADM SS Urea nitrogen/Creatinine [Mass ratio] 13.5 ratio Invalid Interpretation Code 10.0 - 22.0 ratio ADM SS Calcium [Mass/Vol] 8.1 mg/dL Invalid Interpretation Code 8.7 - 10.4 mg/dL ADM SS Chloride [Moles/Vol] 112 mmol/L Invalid Interpretation Code 98 - 110 mEq/L ADM SS CO2 [Moles/Vol] 16 mmol/L Invalid Interpretation Code 22 - 32 mEq/L ADM SS Creatinine [Mass/Vol] 0.93 mg/dL Invalid Interpretation Code 0.60 - 1.40 mg/dL ADM SS Electrolyte Balance 12.0 mEq/L Invalid Interpretation Code 4.0 - 15.0 mEq/L ADM SS GFR/1.73 sq M.predicted among blacks MDRD (S/P/Bld) [Vol rate/Area] ml/min/1.73sqm Invalid Interpretation Code Chemistry S GFR/1.73 sq M.predicted among non-blacks MDRD (S/P/Bld) [Vol rate/Area] ml/min/1.73sqm Invalid Interpretation Code Chemistry S Glucose [Mass/Vol] 124 mg/dL Invalid Interpretation Code 70 - 110 mg/dL ADM SS Magnesium [Mass/Vol] 1.5 mg/dL Invalid Interpretation Code 1.6 - 2.4 mg/dL ADM SS Phosphate [Mass/Vol] 1.6 mg/dL Invalid Interpretation Code 2.4 - 5.1 mg/dL ADM SS Potassium [Moles/Vol] 3.6 mmol/L Invalid Interpretation Code 3.5 - 5.0 mEq/L ADM SS Sodium [Moles/Vol] 140 mmol/L Invalid Interpretation Code 136 - 145 mEq/L AH ADM SS Urea nitrogen [Mass/Vol] 10.0 mg/dL Invalid Interpretation Code 8.0 - 22.0 mg/dL AH ADM SS Urea nitrogen/Creatinine [Mass ratio] 10.8 ratio Invalid Interpretation Code 10.0 - 22.0 ratio AH ADM SS Basophils (Bld) [#/Vol] 0.00 103/mcL Invalid Interpretation Code 0.00 - 0.27 10^3/mcL AH Remisol SS Basophils/100 WBC (Bld) 0.4 % Invalid Interpretation Code 0.0 - 2.5 % AH Remisol SS Eosinophils (Bld) [#/Vol] 0.00 103/mcL Invalid Interpretation Code 0.00 - 0.65 10^3/mcL AH Remisol SS Eosinophils/100 WBC (Bld) 0.1 % Invalid Interpretation Code 0.0 - 6.0 % AH Remisol SS Erythrocyte distribution width (RBC) [Ratio] 13.2 % Invalid Interpretation Code 11.5 - 15.5 % AH Remisol SS Hematocrit (Bld) [Volume fraction] 41.4 % Invalid Interpretation Code 40.0 - 52.0 % AH Remisol SS Hemoglobin (Bld) [Mass/Vol] 13.9 G/dL Invalid Interpretation Code 13.0 - 17.5 G/dL AH Remisol SS Lymphocytes (Bld) [#/Vol] 0.80 103/mcL Invalid Interpretation Code 0.90 - 4.32 10^3/mcL AH Remisol SS Lymphocytes/100 WBC (Bld) 8.3 % Invalid Interpretation Code 20.0 - 40.0 % AH Remisol SS MCH (RBC) [Entitic mass] 30.9 pg Invalid Interpretation Code 27.0 - 33.0 pg AH Remisol SS MCHC (RBC) [Mass/Vol] 33.6 G/dL Invalid Interpretation Code 32.0 - 36.0 G/dL AH Remisol SS MCV (RBC) [Entitic vol] 91.9 fL Invalid Interpretation Code 81.0 - 100.0 fL AH Remisol SS Monocytes (Bld) [#/Vol] 0.70 103/mcL Invalid Interpretation Code 0.09 - 1.40 10^3/mcL AH Remisol SS Monocytes/100 WBC (Bld) 7.0 % Invalid Interpretation Code 2.0 - 13.0 % AH Remisol SS Neutrophils (Bld) [#/Vol] 8.60 103/mcL Invalid Interpretation Code 2.25 - 8.10 10^3/mcL AH Remisol SS Neutrophils/100 WBC (Bld) 84.2 % Invalid Interpretation Code 50.0 - 75.0 % AH Remisol SS Platelet mean volume (Bld) [Entitic vol] 8.0 fL Invalid Interpretation Code 6.4 - 10.5 fL AH Remisol SS Platelets (Bld) [#/Vol] 267 103/mcL Invalid Interpretation Code 150 - 450 10^3/mcL AH Remisol SS RBC (Bld) [#/Vol] 4.51 106/mcL Invalid Interpretation Code 4.50 - 6.00 10^6/mcL AH Remisol SS WBC (Bld) [#/Vol] 10.20 103/mcL Invalid Interpretation Code 4.50 - 10.80 10^3/mcL AH Remisol SS LABORATORYOrdered By: Heather henderson on 07-22-2021 Barometric Pressure 712 mm[Hg] Invalid Interpretation Code AH Auto Chem SS Base excess Calc (Bld) [Moles/Vol] -15.06013 mmol/L Invalid Interpretation Code AH Auto Chem SS CO2 (Bld) [Partial pressure] 19.2 mm[Hg] Invalid Interpretation Code 32.0 - 46.0 mm Hg AH Auto Chem SS CO2 [Moles/Vol] 9.4 mmol/L Invalid Interpretation Code 22.0 - 30.0 mmol/L AH Auto Chem SS HCO3 (Bld) [Moles/Vol] 8.9 mmol/L Invalid Interpretation Code 21.0 - 29.0 mmol/L AH Auto Chem SS Oxygen (Bld) [Partial pressure] 105.3 mm[Hg] Invalid Interpretation Code 74.0 - 108.0 mm Hg AH Auto Chem SS pH (Bld) 7.282 [pH] Invalid Interpretation Code 7.380 - 7.460 AH Auto Chem SS LABORATORYOrdered By: Yadi Chanel on 07-22-2021 Albumin BCP dye [Mass/Vol] 3.9 G/dL Invalid Interpretation Code 3.2 - 4.8 G/dL ADM SS Albumin/Globulin [Mass ratio] 1.4 {ratio} Invalid Interpretation Code 0.9 - 1.6 ratio AH ADM SS ALP [Catalytic activity/Vol] 91 U/L Invalid Interpretation Code 38 - 126 U/L ADM SS ALT No additional P-5'-P [Catalytic activity/Vol] 16 U/L Invalid Interpretation Code 12 - 55 U/L ADM SS AST [Catalytic activity/Vol] 21 U/L Invalid Interpretation Code 8 - 34 U/L ADM SS Bili Indirect 0.7 mg/dL Invalid Interpretation Code 0.1 - 10.0 mg/dL Chemistry S Bilirubin [Mass/Vol] 1.00 mg/dL Invalid Interpretation Code 0.20 - 1.20 mg/dL ADM SS Bilirubin.conjugated [Mass/Vol] 0.3 mg/dL Invalid Interpretation Code 0.0 - 0.4 mg/dL ADM SS Globulin 2.8 G/dL Invalid Interpretation Code 1.5 - 3.8 G/dL ADM SS Protein [Mass/Vol] 6.7 G/dL Invalid Interpretation Code 5.7 - 8.2 G/dL ADM SS LABORATORYOrdered By: SYSTEM SYSTEM on 07-21-2021 Albumin [Mass/Vol] 4.5 G/dL Invalid Interpretation Code 3.2 - 4.8 G/dL ADM SS Albumin/Globulin [Mass ratio] 1.3 {ratio} Invalid Interpretation Code 0.9 - 1.6 ratio ADM SS ALP [Catalytic activity/Vol] 92 U/L Invalid Interpretation Code 38 - 126 U/L ADM SS ALT [Catalytic activity/Vol] 25 U/L Invalid Interpretation Code 12 - 55 U/L ADM SS AST [Catalytic activity/Vol] 16 U/L Invalid Interpretation Code 8 - 34 U/L ADM SS Basophils (Bld) [#/Vol] 0.10 103/mcL Invalid Interpretation Code 0.00 - 0.27 10^3/mcL Remisol SS Basophils/100 WBC (Bld) 0.5 % Invalid Interpretation Code 0.0 - 2.5 % Remisol SS Bilirubin [Mass/Vol] 1.1 mg/dL Invalid Interpretation Code 0.2 - 1.2 mg/dL ADM SS Eosinophils (Bld) [#/Vol] 0.00 103/mcL Invalid Interpretation Code 0.00 - 0.65 10^3/mcL AH Remisol SS Eosinophils/100 WBC (Bld) 0.1 % Invalid Interpretation Code 0.0 - 6.0 % AH Remisol SS Erythrocyte distribution width (RBC) [Ratio] 13.4 % Invalid Interpretation Code 11.5 - 15.5 % AH Remisol SS Globulin (S) [Mass/Vol] 3.4 G/dL Invalid Interpretation Code 1.5 - 3.8 G/dL AH ADM SS Hematocrit (Bld) [Volume fraction] 44.1 % Invalid Interpretation Code 40.0 - 52.0 % AH Remisol SS Hemoglobin (Bld) [Mass/Vol] 14.8 G/dL Invalid Interpretation Code 13.0 - 17.5 G/dL AH Remisol SS Lipase [Catalytic activity/Vol] 17 U/L Invalid Interpretation Code 12 - 53 U/L AH ADM SS Lymphocytes (Bld) [#/Vol] 1.60 103/mcL Invalid Interpretation Code 0.90 - 4.32 10^3/mcL AH Remisol SS Lymphocytes/100 WBC (Bld) 13.0 % Invalid Interpretation Code 20.0 - 40.0 % AH Remisol SS MCH (RBC) [Entitic mass] 31.1 pg Invalid Interpretation Code 27.0 - 33.0 pg AH Remisol SS MCHC (RBC) [Mass/Vol] 33.5 G/dL Invalid Interpretation Code 32.0 - 36.0 G/dL AH Remisol SS MCV (RBC) [Entitic vol] 92.7 fL Invalid Interpretation Code 81.0 - 100.0 fL AH Remisol SS Monocytes (Bld) [#/Vol] 1.00 103/mcL Invalid Interpretation Code 0.09 - 1.40 10^3/mcL AH Remisol SS Monocytes/100 WBC (Bld) 8.0 % Invalid Interpretation Code 2.0 - 13.0 % AH Remisol SS Neutrophils (Bld) [#/Vol] 9.50 103/mcL Invalid Interpretation Code 2.25 - 8.10 10^3/mcL AH Remisol SS Neutrophils/100 WBC (Bld) 78.4 % Invalid Interpretation Code 50.0 - 75.0 % AH Remisol SS Platelet mean volume (Bld) [Entitic vol] 8.3 fL Invalid Interpretation Code 6.4 - 10.5 fL AH Remisol SS Platelets (Bld) [#/Vol] 291 103/mcL Invalid Interpretation Code 150 - 450 10^3/mcL AH Remisol SS Protein [Mass/Vol] 7.9 G/dL Invalid Interpretation Code 6.0 - 8.5 G/dL ADM SS RBC (Bld) [#/Vol] 4.76 106/mcL Invalid Interpretation Code 4.50 - 6.00 10^6/mcL AH Remisol SS Troponin I.cardiac DL <= 0.01 ng/mL [Mass/Vol] 15.34 ng/L Invalid Interpretation Code 0.00 - 54.00 ng/L ADM SS WBC (Bld) [#/Vol] 12.10 103/mcL Invalid Interpretation Code 4.50 - 10.80 10^3/mcL AH Remisol SS LABORATORYOrdered By: Salome ognzalez on 07-21-2021 Beta hydroxybutyrate [Moles/Vol] mg/dL Invalid Interpretation Code 0.20 - 2.81 mg/dL ADM SS pH (BldV) 7.240 [pH] Invalid Interpretation Code 7.380 - 7.460 Auto Chem SS LABORATORYOrdered By: Emanuel Domínguez on 07-21-2021 Fibrin D-dimer DDU (PPP) [Mass/Vol] ng/mL D-DU Invalid Interpretation Code 0 - 230 ng/mL D-DU Auto Coag SS Comment on above: Result Comment: Resu lts reported in D-DU ng/ml. Negative for D-dimer. DVT/PE is highly unlikely. Note: False negative results may be seen in patients on anticoagulant therapy. FREE T4on 05-01-2021 Free T4 [Mass/Vol] 1.16 ng/dL Normal 0.78-2.19 [facility] Comment on above: Performed By: #### 4 [id number] #### [place] [address] Comprehensive metabolic pane l aka [employer] 04-30-2021 Albumin [Mass/Vol] 3.7 g/dL 3.5 - 5.0 g/dL [facility] Alk Phos 71 U/L 24 - 126 U/L [facility] ALT [Catalytic activity/Vol] 21 U/L 4 - 50 U/L [facility] AST [Catalytic activity/Vol] 27 U/L 3 - 55 U/L [facility] Bilirubin [Mass/Vol] 0.9 mg/dL 0.2 - 1 .6 mg/dL [facility] Calcium [Mass/Vol] 9.1 mg/dL 8.4 - 10. 4 mg/dL [facility] Chloride [Moles/Vol] 103 mmol/L 96 - 10 9 mmol/L [facility] CO2 [Moles/Vol] 29 mmol/L 22 - 30 mmol/L [facility] Creatinine [Mass/Vol] 0.84 mg/dL 0.66 - 1.25 mg/dL [facility] Glucose [Mass/Vol] 298 mg/dL High 65 - 100 mg/dL [facility] Interpretation and review of laboratory results Abnormal [facility] Potassium [Moles/Vol] 4.4 mmol/L 3.6 - 5.1 mmol/L [facility] Protein [Mass/Vol] 6.3 g/dL 6.3 - 8.2 g/dL [facility] Sodium [Moles/Vol] 135 mmol/L 135 - 147 mmol/L [facility] Urea nitrogen [Mass/Vol] 13 mg/dL 8 - 26 mg/dL [facility] GFRon 04-30-2021 GFR >60 Normal [facility] Comment on above: Result Comment: To e stimate the GFR for Americans, multiply the result provided by 1.21. Population mean GFR = 116 ml/min/1.73 sq.m. for ages 18-29 yrs. The MDRD is validated in individuals 18-70 years of age. It is less accurate in patients with extremes of muscle mass, restriction of dietary protein, ingestion of creatine, extra-renal metabolism of creatinine, or treatment with medications that affect renal tubular creatinine secretion. GFR Categories in Chronic Kidney Disease (CKD) Category: GFR(mL/min/1.73m^2) Interpretation: G1* 90 or greater Normal or high G2* 60-89 Mild decrease G3a 45-59 Mild to moderate decrease G3b 30-44 Moderate to severe decrease G4 15-29 Severe decrease G5 14 or less Kidney failure *G1&G2: In the absence of evidence of kidney damage, neither GFR category G1 nor G2 fulfill the criteria for CKD Kidney Int Suppl.2013;3:1-150 Performed By: #### G FR1 #### [employer] [place] [id number] GLOMERULAR FILTRATION RATEon 04-30-2021 GFR >60 [place] [facility] Comment on above: To estimate the GFR for Americans, multiply the result provided by 1.21. Population mean GFR = 116 ml/min/1.73 sq.m. for ages 18-29 yrs. The MDRD is validated in individuals 18-70 years of age. It is less accurate in patients with extremes of muscle mass, restriction of dietary protein, ingestion of creatine, extra-renal metabolism of creatinine, or treatment with medications that affect renal tubular creatinine secretion. GFR Categories in Chronic Kidney Disease (CKD) Category: GFR(mL/min/1.73m^2) Interpretation: G1* 90 or greater Normal or high G2* 60-89 Mild decrease G3a 45-59 Mild to moderate decrease G3b 30-44 Moderate to severe decrease G4 15-29 Severe decrease G5 14 or less Kidney failure *G1&G2: In the absence of evidence of kidney damage, neither GFR category G1 nor G2 fulfill the criteria for CKD Kidney Int Suppl.2013;3:1-150 METABOLIC PANELon 04-30-2021 Calcium [Mass/Vol] 9.1 mg/dL Normal 8.4-10.4 [facility] [place] [facility] Comment on above: Performed By: #### [id number] #### [employer] [place] [id number] ALK PHOS 71 U/L Normal 24-126 [employer] [facility] Comment on above: Performed By: #### 4 [id number] #### [employer] [place] [id number] ALT [Catalytic activity/Vol] 21 U/L Normal 4-50 [employer] [facility] Comment on above: Performed By: #### 4 [id number] #### [employer] [place] [id number] AST [Catalytic activity/Vol] 27 U/L Normal 3-55 [employer] Comment on above: Performed By: #### 4 [id number] #### [place] [address] Bilirubin [Mass/Vol] 0.9 mg/dL Normal 0.2-1.6 [facility] [employer] Comment on above: Performed By: #### 4 [id number] #### [place] [address] CO2 [Moles/Vol] 29 mmol/L Normal 22-30 [employer] Comment on above: Performed By: #### 4 [id number] #### [place] [address] Creatinine [Mass/Vol] 0.84 mg/dL Normal 0.66-1.25 [employer] Comment on above: Performed By: #### 4 [id number] #### [place] [address] Glucose [Mass/Vol] 298 mg/dL High 65-100 [facility] [employer] Comment on above: Performed By: #### 4 [id number] #### [place] [address] Protein [Mass/Vol] 6.3 g/dL Normal 6.3-8.2 [facility] [employer] Comment on above: Performed By: #### 4 [id number] #### [place] [address] Urea nitrogen [Mass/Vol] 13 mg/dL Normal 8-26 [employer] Comment on above: Performed By: #### 4 [id number] #### [place] [address] Albumin [Mass/Vol] 3.7 g/dL Normal 3.5-5.0 [facility] [employer] Comment on above: Performed By: #### 4 [id number] #### [place] [id number] Chloride [Moles/Vol] 103 mmol/L Normal 96-109 [facility] Comment on above: Performed By: #### 4 [id number] #### [place] [address] Potassium [Moles/Vol] 4.4 mmol/L Normal 3.6-5.1 [facility] Comment on above: Performed By: #### 4 [id number] #### [place] [id number] Sodium [Moles/Vol] 135 mmol/L Normal 135-147 [facility] Comment on above: Performed By: #### 4 [id number] #### [place] [id number] No Panel Informationon 04-30 [facility] T4, freeon 04-30-2021 Free T4 [Mass/Vol] 1.16 ng/dL 0.78 - 2. 19 ng/dL [facility] TSHon 04-30-2021 TSH 0.967 uIU/mL Normal 0.465-4.680 [facility] Comment on above: Performed By: #### 4 [id number] #### [place] [id number] TSH Qn 0.967 m[IU]/L [facility] Urinary microalbumin/creatin ine ratioOrdered By: Jessee Carrasco on 01-20-2021 Albumin DL <= 20 mg/L (U) [Mass/Vol] mg/dL 0.00 - 1.70 mg/dL [facility] MALB/Creat Ratio see below 0 - 29 mg/g [facility] Comment on above: Unable to calculate due to Urine Microalbumin <0.60 mg/dL Random Microalbumin/Creat Ratio Reference Range Normal <30 mg/g crea Microalbuminuria 30-300 mg/g crea Clinical albuminuria >300 mg/g crea Because of variability in urinary albumin excretion, two of three specimens collected within a 3-6 month period should be abnormal before considering a patient to have crossed one of these diagnostic thresholds. Exercise within 24 h, infection, fever, congestive heart failure, marked hyperglycemia, and marked hypertension may elevate urinary albumin excretion over baseline values. -- Ur Cre-Random 99.70 mg/dL NO NORMALS [employer] [place] Pre MRI/CT Hip InjectionO rdered By: Kaela Fatima on 01-15-2021 Successful fluoroscopic-guided right hip arthrogram. Patient was transferred to MRI for further imaging. [employer] EXAMINATION: FLUOROS COPIC GUIDED ARTHROGRAM, 01/15/2021 2:24 pm COMPARISON: None. HISTORY: Pain in right hip:Other chronic pain: Diagnosis: Chronic right hip pain M25.551, G89.29 (ICD-10-CM) FLUOROSCOPY DOSE AND TYPE OR TIME AND EXPOSURES: Total fluoroscopic time was 0.5 minute. Total of 1 fluoroscopic image submitted. PROCEDURE: CUSTOMS COMPLIANCE SPECIALIST: Dulce Maria Yan MD Informed consent was obtained and universal protocol was observed. Time out was performed with confirmation of patient identity, procedure to be performed and site. A skin entry site was selected with fluoroscopy. Under standard sterile condition, local anesthesia with subcutaneous 1% lidocaine was administered. A 22 gauge spinal needle was inserted into the joint under fluoroscopic guidance. 15 cc solution containing 15 cc of normal saline, 0.2 cc of Dotarem, 3 cc of Omnipaque 240 was injected. The needle was removed, spot images were obtained and a sterile bandage was placed. [employer] Prabhjot, Rad Results In - 01/15/2021 3:13 PM EDT EXAMINATION: FLUOROSCOPIC GUIDED ARTHROGRAM, 01/15/2021 2:24 pm COMPARISON: None. HISTORY: Pain in right hip:Other chronic pain: Diagnosis: Chronic right hip pain M25.551, G89.29 (ICD-10-CM) FLUOROSCOPY DOSE AND TYPE OR TIME AND EXPOSURES: Total fluoroscopic time was 0.5 minute. Total of 1 fluoroscopic image submitted. PROCEDURE: CUSTOMS COMPLIANCE SPECIALIST: Dulce Maria Yan MD Informed consent was obtained and universal protocol was observed. Time out was performed with confirmation of patient identity, procedure to be performed and site. A skin entry site was selected with fluoroscopy. Under standard sterile condition, local anesthesia with subcutaneous 1% lidocaine was administered. A 22 gauge spinal needle was inserted into the joint under fluoroscopic guidance. 15 cc solution containing 15 cc of normal saline, 0.2 cc of Dotarem, 3 cc of Omnipaque 240 was injected. The needle was removed, spot images were obtained and a sterile bandage was placed. IMPRESSION: Successful fluoroscopic-guided right hip arthrogram. Patient was transferred to MRI for further imaging. [facility] [employer] CBC with DifferentialOrdered By: Giovanni Ellis on 12-18-2020 Absolute Immature Granulocytes 0.0 0 10 3/uL [employer] Absolute Lymph 2.1 [employer] Absolute Kerr 0.7 High [place] [employer] Basophils (Bld) [#/Vol] 0.1 10*3/uL [facility] [employer] Basophils/100 WBC (Bld) 1.7 % [employer] Eosinophils (Bld) [#/Vol] 0.5 10*3/uL High [facility] Eosinophils/100 WBC (Bld) 7.6 % [facility] Erythrocyte distribution width (RBC) [Ratio] 12.7 % 11.5 - 14.5 % [facility] Hematocrit (Bld) [Volume fraction] 45.6 % 37.7 - 51.1 % [facility] Hemoglobin (Bld) [Mass/Vol] 15.0 g/dL 12.8 - 17.7 g/dL [facility] [employer] Immature granulocytes/100 WBC (Bld) 0.2 % [facility] Interpretation and review of laboratory results Abnormal [facility] Lymphocytes/100 WBC (Bld) 33.4 % [facility] MCH (RBC) [Entitic mass] 30.9 pg 27.0 - 34.2 pg [facility] MCHC (RBC) [Mass/Vol] 32.9 g/dL 31.4 - 36.2 g/dl [facility] MCV (RBC) [Entitic vol] 93.8 fL 80.6 - 99.0 fL [facility] Monocytes/100 WBC (Bld) 11.4 % [facility] Neutrophils (Bld) [#/Vol] 2.9 10*3/uL [facility] Neutrophils/100 WBC (Bld) 45.7 % [facility] Platelets (Bld) [#/Vol] 253.0 10*3/uL [facility] RBC (Bld) [#/Vol] 4.86 10*6/uL [facility] WBC LM Ql (Sput) 6.3 [facility] Comprehensive metabolic pane l aka MetaboOrdered By: Giovanni Ellis on 12-18-2020 Albumin [Mass/Vol] 3.7 g/dL 3.5 - 5.0 g/dL [facility] Alk Phos 75 U/L 24 - 126 U/L [facility] ALT [Catalytic activity/Vol] 35 U/L 4 - 50 U/L [facility] AST [Catalytic activity/Vol] 45 U/L 3 - 55 U/L [facility] Bilirubin [Mass/Vol] 0.5 mg/dL 0.2 - 1 .6 mg/dL [facility] Calcium [Mass/Vol] 9.1 mg/dL 8.4 - 10. 4 mg/dL [facility] Chloride [Moles/Vol] 104 mmol/L 96 - 10 9 mmol/L [facility] CO2 [Moles/Vol] 31 mmol/L High 22 - 30 mmol/L [facility] Creatinine [Mass/Vol] 0.84 mg/dL 0.66 - 1.25 mg/dL [facility] Glucose [Mass/Vol] 113 mg/dL High 65 - 100 mg/dL [facility] Potassium [Moles/Vol] 4.0 mmol/L 3.6 - 5.1 mmol/L [facility] Protein [Mass/Vol] 6.4 g/dL 6.3 - 8.2 g/dL [facility] Sodium [Moles/Vol] 139 mmol/L 135 - 147 mmol/L [facility] Urea nitrogen [Mass/Vol] 17 mg/dL 8 - 26 mg/dL [facility] GLOMERULAR FILTRATION RATEOr dered By: Giovanni Ellis on 12-18-2020 GFR >60 [facility] Comment on above: To estimate the GFR for Americans, multiply the result provided by 1.21. Population mean GFR = 116 ml/min/1.73 sq.m. for ages 18-29 yrs. The MDRD is validated in individuals 18-70 years of age. It is less accurate in patients with extremes of muscle mass, restriction of dietary protein, ingestion of creatine, extra-renal metabolism of creatinine, or treatment with medications that affect renal tubular creatinine secretion. GFR Categories in Chronic Kidney Disease (CKD) Category: GFR(mL/min/1.73m^2) Interpretation: G1* 90 or greater Normal or high G2* 60-89 Mild decrease G3a 45-59 Mild to moderate decrease G3b 30-44 Moderate to severe decrease G4 15-29 Severe decrease G5 14 or less Kidney failure *G1&G2: In the absence of evidence of kidney damage, neither GFR category G1 nor G2 fulfill the criteria for CKD Kidney Int Suppl.2013;3:1-150 HIV-1 and HIV-2 antibodiesOr dered By: Giovanni Ellis on 12-18-2020 HIV 1+2 Ab Ql (S) Non-Reactive Nonreactive [facility] Comment on above: Nonreactive No detectable HIV-1p24 Antigen or HIV-1/HIV2 antibodies Hepatitis Panel (includes He p A Antibody IgM, Hep B Core Antibody IgM, Hep B Surface Antigen, Hepatitis C Antibody)Ordered By: Giovanni Ellis on 12-18-2020 HAV IgM Qn (S) Non-Reactive Nonreactive [facility] HCV Ab Qn (S) Non-Reactive Nonreactive [facility] Hep B Core-M AB Non-Reactive Nonreactive [facility] Hep B Surf AG Non-Reactive Nonreactive [facility] Lipid panelOrdered By: Giovanni Ellis on 12-18-2020 Cholesterol [Mass/Vol] 194 mg/dL 0 - 200 mg/dL [facility] Comment on above: CHOLESTEROL REFERENC E RANGE Desirable <200 mg/dL Borderline 200-239 mg/dL High >240 mg/dL . Cholesterol in HDL [Mass/Vol] 74.6 mg/dL High 40.0 - 59.9 mg/dL [facility] Comment on above: Interpretive data fo r HDL Cholesterol states: HDL <40 mg/dL is low and constitutes a coronary disease risk factor. HDL >60 mg/dL is a negative risk factor for coronary heart disease. . Cholesterol in LDL [Mass/Vol] 107 mg/dL High 0 - 100 mg/dL [facility] Comment on above: LDL REFERENCE RANGE Optimal <100 mg/dl Near Optimal 100-129 mg/dL Borderline High 130-159 mg/dL High 160-189 mg/dL Very High >=190 mg/dL . Cholesterol in VLDL [Mass/Vol] 13 mg/dL <42 [facility] Triglyceride [Mass/Vol] 63 mg/dL 0 - 150 mg/dL [facility] Comment on above: TRIGLYCERIDE REFEREN CE RANGE Normal <150 mg/dL Borderline High 150-199 mg/dL High 200-499 mg/dL Very High >=500 mg/dL . No Panel InformationOrdered By: Giovanni Ellis on 12-18-2020 [facility] Interpretation and review of laboratory results Abnormal [facility] nRBC 0 [facility] T4 FREE [id number] By: Giovanni Ellis on 12-18-2020 Free T4 [Mass/Vol] 0.61 ng/dL Low 0.78 - 2. 19 ng/dL [facility] Interpretation and review of laboratory results Abnormal [facility] Thyroid CascadeOrdered By: Vicki Ellis on 12-18-2020 Interpretation and review of laboratory results Abnormal [facility] TSH [place] 12.600 High [facility] XR Chest PA and Lateral upri ghtOrdered By: Areli Rajput on 10-24-2020 No active cardiopulm onary disease. [facility] EXAMINATION: TWO XRA Y VIEWS OF THE CHEST 10/24/2020 2:52 pm COMPARISON: None. HISTORY: Shortness of breath:Cough: Diagnosis: Shortness of breath R06.02 (ICD-10-CM) FINDINGS: PA and lateral views of the chest were obtained. There are sternotomy wires and surgical clips suggesting prior coronary artery bypass graft surgery. Heart, mediastinum, and pulmonary vasculature are within normal limits. There is biapical pleuroparenchymal scarring. Lungs and pleural spaces are otherwise clear. There are degenerative changes within the spine. [facility] Prabhjot, Rad Results In - 10/24/2020 6:50 PM EDT EXAMINATION: TWO XRAY VIEWS OF THE CHEST 10/24/2020 2:52 pm COMPARISON: None. HISTORY: Shortness of breath:Cough: Diagnosis: Shortness of breath R06.02 (ICD-10-CM) FINDINGS: PA and lateral views of the chest were obtained. There are sternotomy wires and surgical clips suggesting prior coronary artery bypass graft surgery. Heart, mediastinum, and pulmonary vasculature are within normal limits. There is biapical pleuroparenchymal scarring. Lungs and pleural spaces are otherwise clear. There are degenerative changes within the spine. IMPRESSION: No active [facility]opulmonary disease[facility] RE[facility] Normal [facility] DATE OF SERVICE: REASON OF VISIT: Pain and swelling of the right elbow. HISTORY OF PRESENT ILLNESS: This is a 40-year-old male who initially had a boil at the back side of his right elbow. Three days ago he squeezed and popped it. Now the entire area of the back side of right elbow is red and swollen and is slightly painful. He can still move his elbow normally. No fever or chills. No other problem at this visit. REVIEW OF SYSTEMS: Normal. ALLERGIES: NKA. MEDICATIONS: Reviewed. PHYSICAL EXAMINATION: He is awake, alert, not in distress. No dyspnea. Temperature 97.6, blood pressure 108/62, pulse 88, respirations 16, pulse oximetry 96% on room air. Pain score 5 out of 10. Exam of the right elbow revealed an area of dry scab at the center in the olecranon area, and the skin surrounding the scab is indurated, and the entire posterior aspect of the right elbow is erythematous and slightly tender, but no abscess was seen. Range of motion of elbow was normal. Neurovascular [facility] PATIENT NAME: LUISITO ZHONG [facility] [address] MEDICAL REC #: [id number] [place] [address] [facility] REPORT [facility] status was normal. The rest of exam was normal. ASSESSMENT: Boil with cellulitis or the right elbow. PLAN: Clinical findings were discussed with the patient in detail. I explained to him that he should not pop or scratch any boil or pimple which can cause progression of the infection. Right now it appears that he has infection on the back side of his elbow. It is a skin infection. I gave him Bactrim DS 1 tablet twice a day for 10 days with no refills. He should do cold compress. Ibuprofen as needed. Avoid any heavy duty and follow with his doctor for further evaluation and care. If there is any change he must be rechecked. Patient understands and agreed. His questions were answered to his satisfaction. Brit Banuelos MD [id number] SSI File#: [id number] END OF DOCUMENT / CHANGE LOG FOLLOWS [facility] PATIENT NAME: LUISITO ZHONG [address] [facility] [address] Sep[address]a MEDICAL REC #: [id number] [place] [address] [facility] REPORT [facility] Last Edited By [employer]c. Signed By Brit Banuelos MD #[id number] Brit Banuelos MD #[id number] on 07/02/2020 18:39 ET on 07/02/2020 18:39 ET Revision Number - 2 Verified/Reviewed by 07/02/20 [id number] [facility] PATIENT NAME: LUISITO ZHONG [address] [facility] [address] Sep[address]a MEDICAL REC #: [id number] [place] [address] [facility] REPORT [facility] Normal [facility] CBCon 04-07-2020 Erythrocyte distribution width (RBC) [Ratio] 13.1 % Normal 11-14.5 [facility] Hematocrit (Bld) [Volume fraction] 45.5 % Normal 41.0-53.0 [facility] Hemoglobin (Bld) [Mass/Vol] 15.9 g/dL Normal 13.5-17.5 [facility] MCHC (RBC) [Mass/Vol] 34.9 g/dL Normal 32.0-36.0 [facility] MCV (RBC) [Entitic vol] 92.1 fL Normal 80.0-99.0 [facility] Platelets (Bld) [#/Vol] 223 K/CU MM Normal 150-450 [facility] RBC (Bld) [#/Vol] 4.94 M/CU MM Normal 4.50-6.00 [facility] WBC (Bld) [#/Vol] 5.6 K/CUMM Normal 4.5-11.0 [facility] CMPon 04-07-2020 Albumin [Mass/Vol] 4.1 g/dL Normal 3.2-5.0 [facility] Comment on above: Performed By: #### L 500.49295, L500.13505, L500.36746, L500.23503, L500.80614, L550.13960 #### [facility] [address] [place] [address] Albumin/Globulin [Mass ratio] 2.0 {ratio} Normal 0.8-2.0 [facility] Comment on above: Performed By: #### L 500.61652, L500.10237, L500.67754, L500.07508, L500.03052, L550.68956 #### [facility] [place] [id number] ALK PHOS 60 U/L Normal 45-117 [facility] Comment on above: Performed By: #### L 500.35575, L500.09531, L500.01131, L500.11032, L500.27952, L550.08644 #### [facility] [address] [place] [address] ALT [Catalytic activity/Vol] 18 U/L Normal 13-61 [facility] Comment on above: Result Comment: RESU LTS MAY BE FALSELY DEPRESSED AFTER THE ADMINISTRATION OF SULFASALAZINE AND/OR SULFAPYRIDINE. Performed By: #### L 500.76558, L500.09603, L500.36286, L500.80373, L500.63364, L550.13622 #### [facility] [address] [place] [address] Anion gap [Moles/Vol] 9 mmol/L Normal 5-16 [facility] Comment on above: Performed By: #### L 500.15338, L500.08524, L500.28221, L500.19170, L500.61653, L550.75551 #### [facility] [address] [place], [place] [id number] BILI TOTAL 0.60 MG/DL Normal 0.2-1.0 [facility] Comment on above: Performed By: #### L 500.12192, L500.05206, L500.33358, L500.74229, L500.00401, L550.04530 #### [facility] [address] [place] [address] Calcium [Mass/Vol] 9.6 mg/dL Normal 8.5-10.5 [facility] Comment on above: Result Comment: NOTE NEW NORMAL RANGE DUE TO REAGENT CHANGE Performed By: #### L 500.21599, L500.56990, L500.35306, L500.42304, L500.66951, L550.65546 #### [facility] [place] [address] Chloride [Moles/Vol] 111 mmol/L High 98-107 [facility] Comment on above: Performed By: #### L 500.17904, L500.20789, L500.07230, L500.25459, L500.09761, L550.07497 #### [facility] [address] [place] [address] CO2 [Moles/Vol] 27.0 mmol/L Normal 21-32 [facility] Comment on above: Performed By: #### L 500.61833, L500.75121, L500.77269, L500.56091, L500.93156, L550.57225 #### [facility] [address] [place] [address] Creatinine [Mass/Vol] 0.82 mg/dL Normal 0.5-1.4 [facility] Comment on above: Result Comment: NOTE NEW NORMAL RANGE DUE TO REAGENT CHANGE Patients receiving either N-Acetylcysteine (NAC) or Metamizole prior to venipuncture, may have falsely depressed results. Performed By: #### L 500.58438, L500.48517, L500.84008, L500.12152, L500.97135, L550.82157 #### [facility] [place] [address] Globulin (S) [Mass/Vol] 2.0 g/dL Low 2.2-4.2 [facility] Comment on above: Performed By: #### L 500.99126, L500.72180, L500.90918, L500.53349, L500.82534, L550.17427 #### [facility] [address] [place] [address] Glucose [Mass/Vol] 60 mg/dL Low 70-100 [facility] Comment on above: Result Comment: 70-1 00- Normal Fasting; 100-125 Impaired Fasting; greater than 126 on more than one result- Diabetes. ADA guidelines. Results may be falsely elevated after the administration of Sulfapyridine. Results may be falsely depressed after the administration of Sulfasalazine. Performed By: #### L 500.19345, L500.69575, L500.40746, L500.58769, L500.17362, L550.21372 #### [facility] [address] [place] [address] Potassium [Moles/Vol] 5.0 mmol/L Normal 3.5-5.1 [facility] Comment on above: Result Comment: Slig ht Hemolysis, Result may be affected. Performed By: #### L 500.00328, L500.15288, L500.49353, L500.25839, L500.70757, L550.97765 #### [facility] [address] [place], [place] [id number] Protein [Mass/Vol] 6.1 g/dL Normal 6.0-8.5 [facility] Comment on above: Performed By: #### L 500.88084, L500.34456, L500.06612, L500.65795, L500.94075, L550.48328 #### [facility] [address] [place] [address] SGOT (AST) 23 U/L Normal 8-34 [facility] Comment on above: Result Comment: RESU LTS MAY BE FALSELY DEPRESSED AFTER THE ADMINISTRATION OF SULFASALAZINE AND/OR SULFAPYRIDINE. Performed By: #### L 500.25116, L500.72602, L500.67825, L500.63207, L500.98397, L550.96552 #### [facility] [address] [place] [address] Sodium [Moles/Vol] 147 mmol/L High 136-145 [facility] Comment on above: Performed By: #### L 500.83797, L500.69726, L500.78521, L500.04985, L500.79802, L550.05515 #### [facility] [address] [place] [address] Urea nitrogen [Mass/Vol] 9 mg/dL Normal 7-26 [facility] Comment on above: Performed By: #### L 500.12268, L500.35101, L500.17748, L500.66096, L500.72156, L550.66873 #### [facility] [address] [place] [address] Urea nitrogen/Creatinine [Mass ratio] 11 mg/mg Low 15-24 [facility] Comment on above: Performed By: #### L 500.43395, L500.50606, L500.10815, L500.57598, L500.65431, L550.61701 #### [facility] [address] [place] [address] GFR ESTon 04-07-2020 IF AMER Greater than 60 Normal [facility] Comment on above: Performed By: #### L 500.93836, L500.39567, L500.43961, L500.05115, L500.35113, L550.80856 #### [facility] [address] [place] [address] IF non-AFR AMER Greater than 60 Normal [facility] Comment on above: Performed By: #### L 500.71382, L500.53300, L500.46192, L500.88800, L500.25914, L550.54556 #### [facility] [address] [place] [address] LIPIDon 04-07-2020 Cholesterol [Mass/Vol] 162 MG/dL Normal 0-199 [facility] Comment on above: Performed By: #### L 500.78723, L500.77691, L500.14492, L500.76500, L500.35441, L550.81539 #### [facility] [address] [place] [address] Cholesterol in HDL [Mass/Vol] 49 mg/dL Normal [place] 40 [facility] Comment on above: Result Comment: Desiree ents receiving Metamizole prior to venipuncture, may have falsely depressed results. Performed By: #### L 500.20613, L500.49856, L500.72601, L500.55353, L500.87212, L550.32759 #### [facility] [address] [place] [address] Cholesterol in LDL [Mass/Vol] 99 mg/dL Normal [facility] Comment on above: Result Comment: ___C HOLESTEROL/HDL RATIO RISK___ CHD RISK = Total CHOL LDL HDL (CHOL/HDL) Recommended <200 <130 >40 <3.4 Borderline 200-239 130-159 3.4-4.99 High >240 >160 >5.0 Performed By: #### L 500.76484, L500.08385, L500.05797, L500.24527, L500.04513, L550.66091 #### [facility] [place] [address] Triglyceride [Mass/Vol] 73 mg/dL Normal 30-149 [facility] Comment on above: Result Comment: Desiree ents receiving either N-Acetylcysteine (NAC) or Metamizole prior to venipuncture, may have falsely depressed results. Performed By: #### L 500.42389, L500.40109, L500.76233, L500.41716, L500.45606, L550.08041 #### [facility] [place] [address] T4 FREEon 04-07-2020 Free T4 [Mass/Vol] 0.96 ng/dL Normal 0.76-1.46 [facility] Comment on above: Performed By: #### L 500.64622, L500.75755, L500.74255, L500.68704, L500.67503, L550.60518 #### [facility] [place] [address] TSHon 04-07-2020 TSH Qn 3.729 UIU/ML Normal 0.358-3.740 [facility] Comment on above: Result Comment: 3rd generation ultra sensitive TSH Performed By: #### L 500.90937, L500.20987, L500.81246, L500.31861, L500.25070, L550.55909 ####[facility] [id number] [place], [place] [address]De# [phone] [id number] 04-07-2020 [id number] 33.3 NG/ML Normal 30.0-100.0 [facility] Comment on above: Result Comment: Defi ciency Less than 20 ng/mL Insufficiency 20 - Less than 30 ng/mL Sufficiency 30 - 100 ng/mL Performed By: #### L 500.95508, L500.78834, L500.73129, L500.48948, L500.01523, L550.59920 ####[facility] [id number] [place], [place] [address]Di# [phone] THROAT STREPon 02-21-2020 THROAT STREP BETA STREP RESULT NO BETA STREPTOCOCCUS ISOLATED Normal [facility] Comment on above: Order Comment: Saran marques: RAMIRO MSCon 02-19-2020 [facility] REPORT Normal [facility] DATE OF SERVICE: 05/2020 REASON OF VISIT: Sore throat. HISTORY OF PRESENT ILLNESS: This is a 39-year-old male, presented with sore throat since yesterday. He has mild drainage and mild coughing. No fever or chills. Slightly hurts when he swallows. No vomiting or diarrhea. No body aches. Review of other systems normal. ALLERGIES: NKA. MEDICATIONS: Reviewed. PHYSICAL EXAMINATION: He is awake, alert, not in distress. No dyspnea. Temperature 98.2, blood pressure 128/70, pulse 90, respiration 16. Pulse oximetry 97% on room air. Pain score 4 out of 10. HEENT: Examination revealed mild injected findings. No significant drainage. No paranasal sinuses tenderness. Chest clear to auscultate. Heart: Regular rate and rhythm. No cervical lymphadenopathy. Rapid strep test was negative. ASSESSMENT: Viral pharyngitis. PLAN: Clinical findings were discussed with the patient in detail. There is no need [facility] PATIENT NAME: [facility] MEDICAL REC #: [id number] [place] [address] [facility] REPORT STATCARE PHYSICIAN of any antibiotic right now, but I will send strep for confirmation culture. He should do gargles, take lozenges, [id number] medications for symptom relief as needed. If there is any change in his symptoms, he needs to be rechecked. Patient understands and agreed. Brit Banuelos MD PP/[id number] SSI File#: [id number] END OF DOCUMENT / CHANGE LOG FOLLOWS Last Edited By Elec. Signed By Brit Banuelos MD #PAWPR Brit Banuelos MD #PAWPR on 02/28/2020 09:45 ET on 02/28/2020 09:45 ET Revision Number - 2 Verified/Reviewed by 02/28/20 0945 WALLY [facility] PATIENT NAME: LUISITO ZHONG [facility] Dr. Sepulveda MEDICAL REC #: [id number] [place] [address] [facility] REPORT [facility] PHYSICIAN Normal [facility] RAPID STREP Aon 02-19-2020 S. pyogenes Ag IA Ql (Unsp spec) GROUP A STREP PRESUMPTIVE NEGATIVE FOR GROUP A BETA STREPTOCOCCUS Normal [facility] Comment on above: Order Comment: Saran marques: RAMIRO Camacho 02-11-2020 [facility] REPORT Normal [facility] DATE OF SERVICE: 09/2019 HISTORY OF PRESENT ILLNESS: A 39-year-old male with chief complaint of right ring finger redness and swelling. Symptoms have been present for the past day. He said that he does not recall tearing the skin or hang nail, but it is just irritated. Also said that he has been having some burning itchy sensation to the top of his right foot. 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 However, he is out of it. PAST MEDICAL HISTORY: 1. Diabetes. 2. Heart disease. 3. Hypothyroidism. 4. Depression. CURRENT MEDICATIONS: 1. Tresiba. 2. Aspart. 3. NovoLog. 4. Synthroid. 5. Cymbalta. 6. Wellbutrin. [facility] PATIENT NAME: LUISITO ZHONG [facility] Dr. Sepulveda MEDICAL REC #: [id number] [place] [address] [facility] PHYSICIAN 7. Ketoconazole. ALLERGIES: He has no drug allergies. PAST SURGICAL HISTORY: He has had heart surgery and orthopedic surgery. SOCIAL HISTORY: Current smoker of a half pack a day. Denies any alcohol use. FAMILY HISTORY: No pertinent family history. PHYSICAL EXAMINATION: Vital signs: Blood pressure is 150/80, remaining vital signs are stable. General: Patient is in no acute distress. Skin: On the right fourth distal aspect of the fourth digit of the right hand, the patient has some edema and erythema around the cuticle and on the dorsum of his foot, he has multiple small erythematous satellite lesions in a linear pattern with excoriation. This is nontender, nonblanching. ASSESSMENT: 1. Right fourth finger paronychia. 2. Right tinea pedis. PLAN: 1. For Bactrim Double Strength twice daily for 7 days. Epsom salt soaks. 2. Ketoconazole 2% topical cream to apply twice daily until the rash resolves. [facility] PATIENT NAME: LUISITO ZHONG [address] MEDICAL REC #: [id number] [place] [address] [facility] REPORT [facility] PHYSICIAN Alba Hernandez MD /[id number] SSI File#: [id number] END OF DOCUMENT / CHANGE LOG FOLLOWS Last Edited By Alba Hernandez MD #JESSICA on 02/17/2020 15:57 ET Revision Number - 2 Last Edited By Elec. Signed By Alba Hernandez MD #COBMA Alba Hernandez MD #COBMA on 02/17/2020 15:57 ET on 02/17/2020 15:57 ET Revision Number - 3 Verified/Reviewed by 02/17/20 1557 JESSICA [facility] PATIENT NAME: LUISITO ZHONG [address] MEDICAL REC #: [id number] [place] [address] [facility] REPORT [facility] PHYSICIAN [facility] RE[facility] DATE OF SERVICE: 09/2019 REASON OF VISIT: Sore throat. HISTORY OF PRESENT ILLNESS: This is a 39-year-old male presenting with sore throat for the last 4 days. It hurts to swallow. No fever. Very mild coughing. No shortness of breath, no chest discomfort. No vomiting or diarrhea. REVIEW OF SYSTEMS: Review of other systems normal. PAST MEDICAL HISTORY, FAMILY HISTORY, SOCIAL HISTORY: Reviewed. ALLERGIES: NKA. MEDICATIONS: Reviewed. PHYSICAL EXAMINATION: On examination, he is awake, alert, not in distress, no dyspnea. Temperature 98.2, blood pressure 130/74, pulse 71, respirations 16, pulse oximetry 98% on room air, pain score 5/10. HEENT exam revealed injected pharynx. No cervical lymphadenopathy. Chest: Clear to auscultate. Heart: Regular rate and rhythm. STUDIES: Rapid strep test was positive. ASSESSMENT: Streptococcal pharyngitis. PLAN: Clinical findings were discussed with the patient in detail. [facility] PATIENT NAME: LUISITO ZHONG [address] [facility] [address]. Sepulveda MEDICAL REC #: [id number] [place] [address] [facility] REPORT [facility]ARE PHYSICIAN I gave him amoxicillin 875 mg twice a day for 10 days with no refill. He should do salt-water gargle, maintain hydration, take lozenges, and follow up with his doctor for further evaluation and care. Patient understands and agreed. Brit Banuelos MD PP/[id number] SSI File#: [id number] END OF DOCUMENT / CHANGE LOG FOLLOWS Last Edited By Elec. Signed By Brit Banuelos MD #PAWPR Brit Banuelos MD #PAWPR on 01/17/2020 16:55 ET on 01/17/2020 16:55 ET Revision Number - 2 Verified/Reviewed by 01/17/20 6516 WALLY [facility] PATIENT NAME: LUISITO ZHONG [address] [facility] [address] Sepulveda MEDICAL REC #: [id number] [place] [address] [facility] REPORT [facility] PHYSICIAN Normal [facility] RAPID STREP Aon 01-11-2020 S. pyogenes Ag IA Ql (Unsp spec) Positive Normal [facility] Comment on above: Order Comment: Saran s: [facility] MRI CARDIAC W WO CONTRASTon 12-06-2019 MRI CARDIAC W WO CONTRAST [facility] Department of Radiology [address] [place] [id number] Patient Name: LUISITO ZHONG : 1980 Sex: M Age: Race: NA Pt. Location: [facility]OP Patient Status: D Ordered Date: 11/21/2019 1:10:00 PM Completed Date: 12/06/2019 01:57 PM Requesting Provider: LUZ MARIA PEREZ Attending Provider: LUZ MARIA PEREZ Report Copy To: UNKNOWN, PHYSICIAN Signs & Symptoms: Q24.4 Subvalvar aortic stenosis R01.1 Heart murmur, systolic History: Order in RIS, No FB per SS. Resection of subaortic membrane done @ [facility], Dr Cabrera, same location as MRI order. PC Auth via [employer] for CPT 89054 Auth#[id number] Valid 11/26/19-02/24/20 *Sla No to all COVID questions - jlr Comments: Please Evaluate Exam: MRI CARDIAC W WO CONTRAST MRI CARDIAC W WO CONTRAST 12/06/2019 1:57 PM SIGNS AND SYMPTOMS: Q24.4 Subvalvar aortic stenosis R01.1 Heart murmur, systolic TECHNOLOGIST COMMENTS: shortness of breath fatigue hx aortic valve membrane repair 12/2018 QUESTION FOR THE RADIOLOGIST: Please Evaluate PROTOCOL: Additional images were performed in the following sequences: CONTRAST: Contrast: DOTAREM, 20 milliliter, Intravenous COMPARISON: None. FINDINGS: The heart is enlarged. There is some dilatation of the right ventricular chambers. There is mild hypertrophy of the left ventricular myocardium. This is most prominent in the septum and the anteroseptal wall of the left ventricle. At end systole visibly there is a jet of turbulent flow through the aortic outflow tract. This is seen proximal and distal to the valve plane. Findings are concerning for subaortic stenosis possibly in combination with valvular stenosis however, peaks systolic velocity across the aortic valve on phase contrast images was only 133 cm/s. Valve area was not calculated. On the cine left ventricular outflow tract views may be some component of systolic anterior migration of the mitral valve. No abnormal enhancement on delayed myocardial enhancement images Left ventricular ejection fraction is 68%. Left ventricular end-diastolic volume 141 mL Left ventricular end-systolic volume 46 mL Stroke volume 95 mL Left ventricular end diastolic myocardial mass is 216 g which is still within 2 standard deviation of the mean IMPRESSION: * Visibly there appears to be some left ventricular hypertrophy however, left ventricular end diastolic myocardial mass is still within 2 standard deviations of the mean * Left ventricular ejection fraction normal. Visibly no wall motion abnormality * Visibly there is some dephasing of flow throughout the aortic outflow tract both above and below the valve during and systole suggesting some stenosis. Possibly combination of some valvular and valvular stenosis. However, peak systolic velocity across the aorta is only 133 cm/s. No significant regurgitation. Electronically signed: Eduardo Preston. Transcribed by: [id number], User Resident: Electronically Signed by: EDUARDO PRESTON @ 12/07/2019 08:50 AM Normal [facility] Comment on above: Order Comment: Ashley moss Evaluate C-Reactive Proteinon 019 CRP [Mass/Vol] 36.7 mg/L High 0 - 6 mg/L [place], [place] Comment on above: . Comprehensive Metabolic Pane manan 05-10-2019 Albumin [Mass/Vol] 3.9 g/dL 3.5 - 5 g/dL [place], [place] ALP [Catalytic activity/Vol] 77 U/L 38 - 126 U/L [place] ALT [Catalytic activity/Vol] 25 U/L 13 - 69 U/L [place] Anion gap [Moles/Vol] 5 mmol/L [place] AST [Catalytic activity/Vol] 25 U/L 15 - 46 U/L [place] Bilirubin Ql (U) 1.2 mg/dL 0.2 - 1.3 mg/dL [place] Calcium [Mass/Vol] 8.9 mg/dL 8.4 - 10. 4 mg/dL [place] Chloride [Moles/Vol] 103 mmol/L 98 - 10 7 mmol/L [place] CO2 [Moles/Vol] 31 mmol/L High 22 - 30 mmol/L [place] Creatinine [Mass/Vol] 0.75 mg/dL 0.52 - 1.25 mg/dL [place] EGFR IF NonAfrican [place]ese >60.0 >60 mL/min [place] Comment on above: Source- MDRD equatio n with creatinine calibration to IDMS(NKDEP) eGFR not recommended for drug dose adjustment GFR/1.73 sq M predicted among blacks MDRD (S/P/Bld) [Vol rate/Area] mL/min/{1.73_m2} >60 mL/min [place] Glucose [Mass/Vol] 133 mg/dL High 70 - 100 mg/dL [place] Potassium [Moles/Vol] 4.6 mmol/L 3.5 - 5.1 mmol/L [place] Protein [Mass/Vol] 7.2 g/dL 6.3 - 8.2 g/dL [place] Sodium [Moles/Vol] 139 mmol/L 135 - 145 mmol/L [place] Urea nitrogen [Mass/Vol] 9 mg/dL 7 - 20 mg/dL [place] Hemogram (CBC) w/Auto Diffon 05-10-2019 Absolute Baso # 0.0 10*3/uL 0 - 0.2 10*3/uL [place] Absolute Neut # 7.5 10*3/uL High 1.8 - 7 10*3/uL [place] Basophils/100 WBC (Bld) 0.5 % 0 - 2 % [place] Eosinophils (Bld) [#/Vol] 0.2 10*3/uL 0 - 0.5 10*3/uL [place] Eosinophils/100 WBC (Bld) 2.3 % 1 - 6 % [place] Erythrocyte distribution width (RBC) [Ratio] 14.7 % High 11.5 - 14.5 % [place] Granulocytes/100 WBC (Bld) 75.6 % 40 - 80 % [place] Hematocrit (Bld) [Volume fraction] 46.1 % 40 - 52 % [place] Hemoglobin (Bld) [Mass/Vol] 15.4 g/dL 13 - 18 g/dL [place] Lymphocytes (Bld) [#/Vol] 1.4 10*3/uL 1 - 4.3 10*3/uL [place] Lymphocytes/100 WBC (Bld) 13.8 % Low 20 - 40 % [place] MCH (RBC) [Entitic mass] 29.3 pg 26 - 34 pg [place] MCHC (RBC) [Mass/Vol] 33.3 % 32 - 36 % [place] MCV (RBC) [Entitic vol] 88.1 fL 80 - 98 fL [place] Monocytes (Bld) [#/Vol] 0.8 10*3/uL 0 - 0.8 10*3/uL [place] Monocytes/100 WBC (Bld) 7.8 % 2 - 10 % [place] Platelet mean volume (Bld) [Entitic vol] 7.7 fL 7.4 - 10.4 fL [place] Platelets (Bld) [#/Vol] 223 10*3/uL 140 - 440 10*3/uL [place] RBC (Bld) [#/Vol] 5.24 10*6/uL 4.4 - 5.9 10*6/uL [place] WBC (Bld) [#/Vol] 9.9 10*3/uL 3.6 - 10.7 10*3/uL [place] Otheron 05-10-2019 Test Performed by [facility], [address] [place], [place], [place] [address] [place] [address] Interpretation and review of laboratory results Abnormal [place] Sedimentation Rateon 019 Sed Rate 9 mm/h 0 - 10 mm/h [place] Basic Metabolic Panel Reflex Mgon 06-08-2018 Anion gap 3 molar conc 16 mmol/L Normal 7-16 [facility] Calcium mass conc 9.5 mg/dL Normal 8.6-10.2 [facility] Chloride molar conc 100 mmol/L Normal 98-107 [facility] CO2 molar conc 24 mmol/L Normal 22-29 [facility] Creatinine mass conc 0.9 mg/dL Normal 0.7-1.2 [facility] GFR/1.73 sq M predicted among blacks MDRD vol rate/area (S/P/Bld) mL/min/{1.73_m2} Normal [facility] GFR/1.73 sq M predicted among non-blacks MDRD vol rate/area (S/P/Bld) mL/min/{1.73_m2} Normal >=60 [facility] Comment on above: Result Comment: Domestic Violence Counselor silas Kidney Disease: less than 60 ml/min/1.73 sq.m. Kidney Failure: less than 15 ml/min/1.73 sq.m.Results valid for patients 18 years and older. Glucose mass conc 304 mg/dL High 74-99 [facility] Potassium reflex Mg 4.3 mmol/L Normal 3.5-5.0 [facility] Sodium molar conc 140 mmol/L Normal 132-146 [facility] Urea nitrogen mass conc 19 mg/dL Normal 6-20 [facility] CBC With Platelet and Differ entialon 06-08-2018 Abs Imm Granulocytes 0.03 E9/L Normal Nick [facility] Basophils Auto #/vol (Bld) 0.06 E9/L Normal 0.00-0.20 [facility] Basophils/100 WBC Auto (Bld) 0.6 % Normal 0.0-2.0 [facility] Eosinophils Auto #/vol (Bld) 0.00 E9/L Low 0.05-0.50 [facility] Eosinophils/100 WBC Auto (Bld) 0.0 % Normal 0.0-6.0 [facility] Erythrocyte distribution width Auto Ratio (RBC) 12.2 fL Normal 11.5-15.0 [facility] Hematocrit Auto Volume Fraction (Bld) 43.9 % Normal 37.0-54.0 [facility] Hemoglobin mass conc (Bld) 14.8 g/dL Normal 12.5-16.5 [facility] Imm Granulocytes 0.3 % Normal 0.0-5.0 [facility] Lymphocytes Auto #/vol (Bld) 1.69 E9/L Normal 1.50-4.00 [facility] Lymphocytes/100 WBC Auto (Bld) 15.7 % Low 20.0-42.0 [facility] MCH Auto Entitic mass (RBC) 30.8 pg Normal 26.0-35.0 [facility] MCHC Auto mass conc (RBC) 33.7 % Normal 32.0-34.5 [facility] MCV Auto Entitic volume (RBC) 91.5 fL Normal 80.0-99.9 [facility] Monocytes Auto #/vol (Bld) 1.11 E9/L High 0.10-0.95 [facility] Monocytes/100 WBC Auto (Bld) 10.3 % Normal 2.0-12.0 [facility] Neutrophils Auto #/vol (Bld) 7.90 E9/L High 1.80-7.30 [facility] Neutrophils/100 WBC Auto (Bld) 73.1 % Normal 43.0-80.0 [facility] Platelet mean volume Auto Entitic volume (Bld) 10.1 fL Normal 7.0-12.0 [facility] Platelets Auto #/vol (Bld) 208 E9/L Normal 130-450 [facility] RBC Auto #/vol (Bld) 4.80 E12/L Normal 3.80-5.80 [facility] WBC Auto #/vol (Bld) 10.8 E9/L Normal 4.5-11.5 [facility] Lactic Acidon 06-08-2018 Lactate molar conc 2.6 mmol/L High 0.5-2.2 [facility] Lipaseon 06-08-2018 Lipase enzyme act/vol 9 U/L Low 13-60 [facility] Liver Panelon 06-08-2018 Albumin mass conc 4.6 g/dL Normal 3.5-5.2 [facility] ALP enzyme act/vol 62 U/L Normal 40-129 [facility] ALT enzyme act/vol 18 U/L Normal 0-40 [facility] AST enzyme act/vol 22 U/L Normal 0-39 [facility] Bilirubin Indirect 0.9 mg/dL Normal 0.0-1.0 [facility] Bilirubin mass conc 1.2 mg/dL Normal 0.0-1.2 [facility] Bilirubin.direct mass conc 0.3 mg/dL Normal 0.0-0.3 [facility] Protein mass conc 7.2 g/dL Normal 6.4-8.3 [facility] METER GLUCOSEon 06-08-2018 Glucose mass conc 256 mg/dL High 74-99 [facility] Glucose mass conc 304 mg/dL High 74-99 [facility] Troponinon 06-08-2018 Troponin I.cardiac mass conc ng/mL Normal 0.00-0.03 [facility] Comment on above: Result Comment: TROP ONIN T BLOOD LEVELS: 0.03 ng/mL Upper Reference Limit0.04 - 0.09 ng/mL Possible myocardial injury >= 0.10 ng/mL Myocardial injury Urinalysis, reflex to micros copicon 06-08-2018 Bilirubin Ql (U) Negative Normal Negative [facility] Clarity Nom (U) Clear Normal Clear [facility] Color Nom (U) Yellow Normal Straw/Yellow [facility] Glucose Ql (U) 500 mg/dL Abnormal Negative [facility] Hemoglobin Test strip Ql (U) Negative Normal Negative [facility] Ketones Ql (U) 40 mg/dL Abnormal Negative [facility] Leukocyte esterase Test strip Ql (U) Negative Normal Negative [facility] [facility] Test strip Ql (U) Negative Normal Negative [facility] pH Test strip (U) 5.5 [pH] Normal 5.0-9.0 [facility] Protein Test strip Ql (U) Negative Normal Negative [facility] Specific gravity Relative Density (U) >=1.030 Normal 1.005-1.030 [facility] Urobilinogen Test strip Qn (U) 0.2 {Miguel'U}/dL Normal < 2.0 [facility] METER GLUCOSEon 03-31-2018 Glucose mass conc 153 mg/dL High 70-110 [facility] Glucose mass conc mg/dL Low 70-110 [facility] Vital Signs Date Time Vital Sign Value Performing Clinician Rolando ellis 03-15-2025 13:25-0400 Body height 193.04 cm [employer]travel[employer]KEY Work Phone: [facility] 03-15-2025 13:25-0400 Body mass index (BMI) [Ratio] 29.5 kg/m2 EDNUVETA ERNA Work Phone: [facility] 03-15-2025 13:25-0400 Body weight 110.22 kg EDNUVETA ERNA Work Phone: [facility] 03-15-2025 08:40-0400 Body height 193 cm Erin Morris MD Work Phone: [facility] [employer] 03-15-2025 08:40-0400 Body mass index (BMI) [Ratio] 29.31 kg/m2 Erin Morris MD Work Phone: [facility] [employer] 03-15-2025 08:40-0400 Body weight 109.23 kg Erin Morris MD Work Phone: [facility] [employer] 03-15-2025 08:40-0400 Diastolic blood pressure 80 mm[Hg] Erin Morris MD Work Phone: [facility] 03-15-2025 08:40-0400 Heart rate 97 /min Erin Morris MD Work Phone: [facility] [employer] 03-15-2025 08:40-0400 SaO2% (BldA) [Mass fraction] 97 % Erin Morris MD Work Phone: [facility] [employer] 03-15-2025 08:40-0400 Systolic blood pressure 130 mm[Hg] Erin Morris MD Work Phone: [facility] 03-07-2025 08:27-0400 Body height 193 cm Robyn Temsic LUMBER HACKER.SENIOR TECHNICAL ARCHITECT Work Phone: [facility] 03-07-2025 08:27-0400 Body mass index (BMI) [Ratio] 29.55 kg/m2 Robyn Temsic LUMBER HACKER.SENIOR TECHNICAL ARCHITECT Work Phone: [facility] 03-07-2025 08:27-0400 Body temperature 97.81 [degF] Robyn Temsic LUMBER HACKER.SENIOR TECHNICAL ARCHITECT Work Phone: [facility] 03-07-2025 08:27-0400 Body weight 110.13 kg Robyn Temsic LUMBER HACKER.SENIOR TECHNICAL ARCHITECT Work Phone: [facility] 03-07-2025 08:27-0400 Diastolic blood pressure 74 mm[Hg] Robyn Temsic LUMBER HACKER.SENIOR TECHNICAL ARCHITECT Work Phone: [facility] 03-07-2025 08:27-0400 Heart rate 92 /min Robyn Temsic LUMBER HACKER.SENIOR TECHNICAL ARCHITECT Work Phone: [facility] 03-07-2025 08:27-0400 Respiratory rate 16 /min Robyn Temsic LUMBER HACKER.SENIOR TECHNICAL ARCHITECT Work Phone: [facility] 03-07-2025 08:27-0400 SaO2% (BldA) [Mass fraction] 98 % Robyn Temsic LUMBER HACKER.SENIOR TECHNICAL ARCHITECT Work Phone: [facility] 03-07-2025 08:27-0400 Systolic blood pressure 122 mm[Hg] Robyn Temsic LUMBER HACKER.SENIOR TECHNICAL ARCHITECT Work Phone: [facility] 02-28-2025 11:33-0400 Body height 193 cm Vamshi Benson MD Work Phone: [facility] Comment on above: patient reports 02-28-2025 11:33-0400 Diastolic blood pressure 70 mm[Hg] Vamshi Benson MD Work Phone: [facility] 02-28-2025 11:33-0400 Heart rate 95 /min Vamshi Benson MD Work Phone: [facility] 02-28-2025 11:33-0400 SaO2% (BldA) [Mass fraction] 98 % Vamshi Benson MD Work Phone: [facility] 02-28-2025 11:33-0400 Systolic blood pressure 122 mm[Hg] Vamshi Benson MD Work Phone: [facility] 02-27-2025 10:35-0400 Body mass index (BMI) [Ratio] 29.94 kg/m2 Renay Garrett MD Work Phone: [facility] 02-27-2025 10:35-0400 Body weight 111.58 kg Renay Garrett MD Work Phone: [facility] 02-27-2025 10:35-0400 Diastolic blood pressure 74 mm[Hg] Renay Garrett MD Work Phone: [facility] 02-27-2025 10:35-0400 Heart rate 97 /min Renay Garrett MD Work Phone: [facility] 02-27-2025 10:35-0400 Respiratory rate 18 /min Renay Garrett MD Work Phone: [facility] 02-27-2025 10:35-0400 SaO2% (BldA) [Mass fraction] 97 % Renay Garrett MD Work Phone: [facility] 02-27-2025 10:35-0400 Systolic blood pressure 118 mm[Hg] Renay Garrett MD Work Phone: [facility] 02-21-2025 12:24-0400 Body height 193 cm Madison Regan MD Work Phone: [facility] 02-21-2025 12:24-0400 Body height 193.04 cm Madison Regan MD Work Phone: [facility] 02-21-2025 12:24-0400 Body mass index (BMI) [Ratio] 29.81 kg/m2 Madison Regan MD Work Phone: [facility] 02-21-2025 12:24-0400 Body weight 111 kg Madison Regan MD Work Phone: [facility] 02-21-2025 12:24-0400 Body weight 110.68 kg Madison Regan MD Work Phone: [facility] 02-21-2025 12:24-0400 BP SITE #1 Madison Regan MD Work Phone: [facility] 02-21-2025 12:24-0400 Diastolic blood pressure 81 mm[Hg] Madison Regan MD Work Phone: [facility] 02-21-2025 12:24-0400 Heart rate 98 /min Madison Regan MD Work Phone: [facility] 02-21-2025 12:24-0400 HGHTCHNVIS Madison Regan MD Work Phone: [facility] 02-21-2025 12:24-0400 Systolic blood pressure 142 mm[Hg] Madison Regan MD Work Phone: [facility] 02-21-2025 12:24-0400 VITALSDONE Madison Regan MD Work Phone: [facility] 01-24-2025 13:34-0400 Body temperature 99.39 [degF] Robyn Temsic LUM[employer] HACKER.SENIOR TECHNICAL ARCHITECT Work Phone: [facility] 01-24-2025 13:31-0400 Body height 193 cm Robyn Temsic LUMBER HACKER.SENIOR TECHNICAL ARCHITECT Work Phone: [facility] 01-24-2025 13:31-0400 Body mass index (BMI) [Ratio] 28.7 kg/m2 Robyn Temsic LUMBER HACKER.SENIOR TECHNICAL ARCHITECT Work Phone: [facility] 01-24-2025 13:31-0400 Body weight 106.96 kg Robyn Temsic LUMBER HACKER.SENIOR TECHNICAL ARCHITECT Work Phone: [facility] 01-24-2025 13:31-0400 Diastolic blood pressure 74 mm[Hg] Robyn Temsic LUMBER HACKER.SENIOR TECHNICAL ARCHITECT Work Phone: [facility] 01-24-2025 13:31-0400 Heart rate 110 /min Robyn Temsic LUMBER HACKER.SENIOR TECHNICAL ARCHITECT Work Phone: [facility] 01-24-2025 13:31-0400 Respiratory rate 16 /min Robyn Temsic LUMBER HACKER.SENIOR TECHNICAL ARCHITECT Work Phone: [facility] 01-24-2025 13:31-0400 SaO2% (BldA) [Mass fraction] 98 % Robyn Temsic LUMBER HACKER.SENIOR TECHNICAL ARCHITECT Work Phone: [facility] 01-24-2025 13:31-0400 Systolic blood pressure 120 mm[Hg] Robyn Temsic LUMBER HACKER.SENIOR TECHNICAL ARCHITECT Work Phone: [facility] 01-10-2025 15:48-0400 Body height 193 cm Robyn Temsic LUMBER HACKER.SENIOR TECHNICAL ARCHITECT Work Phone: [facility] 01-10-2025 15:48-0400 Body mass index (BMI) [Ratio] 29.34 kg/m2 Robyn Temsic LUMBER HACKER.SENIOR TECHNICAL ARCHITECT Work Phone: [facility] 01-10-2025 15:48-0400 Body temperature 97.3 [degF] Robyn Temsic LUMBER HACKER.SENIOR TECHNICAL ARCHITECT Work Phone: [facility] 01-10-2025 15:48-0400 Body weight 109.32 kg Robyn Temsic LUMBER HACKER.SENIOR TECHNICAL ARCHITECT Work Phone: [facility] 01-10-2025 15:48-0400 Diastolic blood pressure 86 mm[Hg] Robyn Temsic LUMBER HACKER.SENIOR TECHNICAL ARCHITECT Work Phone: [facility] 01-10-2025 15:48-0400 Heart rate 70 /min Robyn Temsic LUMBER HACKER.SENIOR TECHNICAL ARCHITECT Work Phone: [facility] 01-10-2025 15:48-0400 Respiratory rate 18 /min Robyn Temsic LUMBER HACKER.SENIOR TECHNICAL ARCHITECT Work Phone: [facility] 01-10-2025 15:48-0400 SaO2% (BldA) [Mass fraction] 97 % Robyn Temsic LUMBER HACKER.SENIOR TECHNICAL ARCHITECT Work Phone: [facility] 01-10-2025 15:48-0400 Systolic blood pressure 124 mm[Hg] Robyn Temsic LUMBER HACKER.SENIOR TECHNICAL ARCHITECT Work Phone: [facility] 01-07-2025 10:46-0400 Body height 193 cm Delfina Emch PA-C Work Phone: [facility] 01-07-2025 10:46-0400 Body mass index (BMI) [Ratio] 29.65 kg/m2 Delfina Emch PA-C Work Phone: [facility] 01-07-2025 10:46-0400 Body temperature 98.1 [degF] Delfina Emch PA-C Work Phone: [facility] 01-07-2025 10:46-0400 Body weight 110.5 kg Delfina Emch PA-C Work Phone: [facility] 01-07-2025 10:46-0400 Diastolic blood pressure 68 mm[Hg] Delfina Emch PA-C Work Phone: [facility] 01-07-2025 10:46-0400 Heart rate 84 /min Delfina Emch PA-C Work Phone: [facility] 01-07-2025 10:46-0400 SaO2% (BldA) [Mass fraction] 96 % Delfina Emch PA-C Work Phone: [facility] 01-07-2025 10:46-0400 Systolic blood pressure 106 mm[Hg] Delfina Emch PA-C Work Phone: [facility] 12-26-2024 07:24-0400 SaO2% (BldA) [Mass fraction] 97 % [facility] Comment on above: Order Comment: Specimen Type: ARTERIAL B LOOD SPECIMENOrdering Facility: [facility] Address: [address] [place] [address] Performed By: #### A LLBG ####[facility] [id number] [address] 12-26-2024 05:33-0400 SaO2% (BldA) [Mass fraction] 98 % ROBYN [facility] Comment on above: Order Comment: Specimen Type: ARTERIAL B LOOD SPECIMENOrdering Facility: [facility] Address: [address] [place] [address] Performed By: #### A LLBG ####[facility] [id number] [address] 12-26-2024 03:38-0400 SaO2% (BldA) [Mass fraction] 98 % [facility] Comment on above: Order Comment: Specimen Type: ARTERIAL B LOOD SPECIMENOrdering Facility: [facility] Address: [address] [place] [address] Performed By: #### A LLBG ####[facility] [id number] [address] [address] [facility] 12-26-2024 02:01-0400 SaO2% (BldA) [Mass fraction] 97 % ROBYN [facility] Comment on above: Order Comment: Specimen Type: ARTERIAL B LOOD SPECIMENOrdering Facility: [facility] Address: [address] [place], [place] [address] Performed By: #### A LLBG ####[facility] [id number] [place] [id number] [facility] 12-25-2024 23:26-0400 SaO2% (BldA) [Mass fraction] 99 % ROBYN [facility] Comment on above: Order Comment: Specimen Type: ARTERIAL B LOOD SPECIMENOrdering Facility: [facility] Address: [address] [place], [place] [address] Performed By: #### A LLBG ####[facility] [id number] [place] [id number] [facility] [place] 12-25-2024 21:56-0400 SaO2% (BldA) [Mass fraction] 99 % ROBYN [facility] Comment on above: Order Comment: Specimen Type: ARTERIAL B LOOD SPECIMENOrdering Facility: [facility] Address: [address] [place], [place] [address] Performed By: #### A LLBG ####[facility] [id number] [address] [address] [facility] 12-25-2024 19:37-0400 SaO2% (BldA) [Mass fraction] 96 % ROBYN [facility] Comment on above: Order Comment: Specimen Type: ARTERIAL B LOOD SPECIMENOrdering Facility: [facility] Address: [address] [place], [place] [address] Performed By: #### A LLBG ####[facility] [id number] [address] [address] [place] 12-25-2024 18:28-0400 SaO2% (BldA) [Mass fraction] 97 % ROBYN [facility] Comment on above: Order Comment: Specimen Type: ARTERIAL B LOOD SPECIMENOrdering Facility: [facility] Address: [address] [place] [address] Performed By: #### A LLBG ####[facility] [id number] [place] [id number] [place] 12-25-2024 17:05-0400 SaO2% (BldA) [Mass fraction] 99 % ROBYN [facility] Comment on above: Order Comment: Specimen Type: ARTERIAL B LOOD SPECIMENOrdering Facility: [facility] Address: [address] [place] [address] Performed By: #### A LLBG ####[facility] [id number] [place] [id number] [place] 12-25-2024 15:14-0400 SaO2% (BldA) [Mass fraction] 100 % ROBYN [facility] Comment on above: Order Comment: Specimen Type: ARTERIAL B LOOD SPECIMENOrdering Facility: [facility] Address: [address] [place] [address] Performed By: #### A LLBG ####[facility] [id number] [address] [address] [place] 12-25-2024 13:54-0400 SaO2% (BldA) [Mass fraction] 99 % ROBYN [facility] Comment on above: Order Comment: Specimen Type: ARTERIAL B LOOD SPECIMENOrdering Facility: [facility] Address: [address] [place], [place] [address] Performed By: #### A LLBG ####[facility] [id number] [address] [address] [place] 12-25-2024 13:21-0400 SaO2% (BldA) [Mass fraction] 100 % ROBYN [facility] Comment on above: Order Comment: Specimen Type: ARTERIAL B LOOD SPECIMENOrdering Facility: [facility] Address: [address] [place] [address] Performed By: #### A LLBG ####[facility] [id number] [place] [id number] [place] 12-25-2024 11:40-0400 SaO2% (BldA) [Mass fraction] 100 % ROBYN [facility] Comment on above: Order Comment: Specimen Type: ARTERIAL B LOOD SPECIMENOrdering Facility: [facility] Address: [address] [place] [address] Performed By: #### A LLMG ####[facility] [id number] [place] [id number] [facility] [place] 12-25-2024 11:00-0400 SaO2% (BldA) [Mass fraction] 100 % ROBYN [facility] Comment on above: Order Comment: Specimen Type: ARTERIAL B LOOD SPECIMENOrdering Facility: [facility] Address: [address] [place] [address] Performed By: #### A LLBG ####[facility] [id number] [place] [id number] [place] 12-25-2024 10:15-0400 SaO2% (BldA) [Mass fraction] 100 % ROBYN [facility] Comment on above: Order Comment: Specimen Type: ARTERIAL B LOOD SPECIMENOrdering Facility: [facility] Address: [address] [place], [place] [address] Performed By: #### A LLBG ####[facility] [id number] [place] [id number] [facility] 12-25-2024 07:26-0400 SaO2% (BldA) [Mass fraction] 99 % ROBYN [facility] Comment on above: Order Comment: Specimen Type: ARTERIAL B LOOD SPECIMENOrdering Facility: [facility] Address: [address] [place] [address] Performed By: #### A LLBG ####[facility] [id number] [address] OF [facility] 12-20-2024 09:55-0400 Diastolic blood pressure 76 mm[Hg] Jt King MD Work Phone: [facility] 12-20-2024 09:55-0400 Systolic blood pressure 121 mm[Hg] Jt King MD Work Phone: [facility] 12-20-2024 09:54-0400 Body height 193 cm Jt King MD Work Phone: [facility] 12-20-2024 09:54-0400 Body mass index (BMI) [Ratio] 29.58 kg/m2 Jt King MD Work Phone: [facility] 12-20-2024 09:54-0400 Body weight 110.22 kg Jt King MD Work Phone: [facility] 12-20-2024 09:54-0400 Heart rate 77 /min Jt King MD Work Phone: [facility] 12-20-2024 09:54-0400 SaO2% (BldA) [Mass fraction] 98 % Jt King MD Work Phone: [facility] 12-19-2024 12:49-0400 Body mass index (BMI) [Ratio] 34.38 kg/m2 Crow Beth MD Work Phone: [facility] 12-19-2024 12:49-0400 Body weight 111.8 kg Crow Beth MD Work Phone: [facility] 12-19-2024 12:49-0400 Diastolic blood pressure 73 mm[Hg] Crow Beth MD Work Phone: [facility] 12-19-2024 12:49-0400 Heart rate 86 /min Crow Beth MD Work Phone: [facility] 12-19-2024 12:49-0400 Systolic blood pressure 124 mm[Hg] Crow Beth MD Work Phone: [facility] 11-20-2024 15:50-0400 Diastolic blood pressure 70 mm[Hg] [facility] Comment on above: sitting on edge of bed 11-20-2024 15:50-0400 Heart rate 84 /min [facility] 11-20-2024 15:50-0400 Respiratory rate 10 /min [facility] 11-20-2024 15:50-0400 SaO2% (BldA) [Mass fraction] 95 % [facility] 11-20-2024 15:50-0400 Systolic blood pressure 126 mm[Hg] [facility] Comment on above: sitting on edge of bed 11-20-2024 14:14-0400 Body temperature 97.5 [degF] [facility] 08-24-2024 09:22-0500 Body height 193 cm Erin Morris MD Work Phone: [facility] 08-24-2024 09:22-0500 Body mass index (BMI) [Ratio] 28.07 kg/m2 Erin Morris MD Work Phone: [facility] 08-24-2024 09:22-0500 Body weight 104.6 kg Erin Morris MD Work Phone: [facility] 08-24-2024 09:22-0500 Diastolic blood pressure 60 mm[Hg] Erin Morris MD Work Phone: [facility] 08-24-2024 09:22-0500 Heart rate 78 /min Erin Morris MD Work Phone: [facility] 08-24-2024 09:22-0500 SaO2% (BldA) [Mass fraction] 97 % Erin Morris MD Work Phone: [facility] [employer] 08-24-2024 09:22-0500 Systolic blood pressure 90 mm[Hg] Erin Morris MD Work Phone: [facility] [employer] 05-14-2024 09:17-0500 Body mass index (BMI) [Ratio] 30.11 kg/m2 Luz Maria Perez MD Work Phone: [facility] [employer] 05-14-2024 09:17-0500 Body weight 100.7 kg Luz Maria Perez MD Work Phone: [facility] [employer] 05-14-2024 09:17-0500 Heart rate 82 /min Luz Maria Perez MD Work Phone: [facility] [employer] 05-14-2024 09:17-0500 SaO2% (BldA) [Mass fraction] 99 % Luz Maria Perez MD Work Phone: [facility] [employer] 04-11-2024 05:10-0400 Blood Pressure Location NIDAL CHOUJAA DO [facility] 04-11-2024 05:10-[address] [facility] 04-11-2024 05:10-0400 Diastolic Blood Pressure Non-Invasive 94 mm[Hg] [facility] 04-11-2024 05:10-0400 Heart rate 93 /min NIDAL CHOUJAA DO [facility] 04-11-2024 05:10-0400 Respiratory rate 22 /min [facility] 04-11-2024 05:10-0400 Systolic Blood Pressure Non-Invasive 136 mm[Hg] [facility] 04-11-2024 00:37-0400 Blood Pressure Cuff Size NIDAL CHOUJAA DO [facility] 04-11-2024 00:37-0400 Blood Pressure Location NIDOKSANA CHOUJAA DO [facility] 04-11-2024 00:37-0400 Blood Pressure Method NIDOKSANA CHOUJAA DO [facility] 04-11-2024 00:37-0400 Body temperature 98.24 [degF] ELIEAL CHOUJAA DO [facility] 04-11-2024 00:37-0400 Body weight 98.[address] [facility]RAQU[facility] DO [facility] 04-11-2024 00:37-0400 Diastolic Blood Pressure Non-Invasive 82 mm[Hg] AMANDA CHOUJAA DO [facility] 04-11-2024 00:37-0400 Heart rate 87 /min [facility] HOPEURAQU[facility]A DO [facility] 04-11-2024 00:37-0400 Respiratory rate 20 /min [facility] HOPEURAQUELA DO [facility] 04-11-2024 00:37-0400 Systolic Blood Pressure Non-Invasive 132 mm[Hg] [facility] HOPE[facility]QU[facility]A DO [facility] 04-06-2024 09:10-0400 Diastolic Blood Pressure Non-Invasive 99 mm[Hg] ROMAN FERNÁNDEZ MD [facility] 04-06-2024 09:10-0400 Heart rate 82 /min ROMAN FERNÁNDEZ MD [facility] 04-06-2024 09:10-0400 Respiratory rate 16 /min ROMAN FERNÁNDEZ MD [facility] 04-06-2024 09:10-0400 Systolic Blood Pressure Non-Invasive 153 mm[Hg] ROMAN FERNÁNDEZ MD [facility] 04-06-2024 08:12-0400 Diastolic Blood Pressure Non-Invasive 75 mm[Hg] ROMAN FERNÁNDEZ MD [facility] 04-06-2024 08:12-0400 Heart rate 88 /min ROMAN FERNÁNDEZ MD [facility] 04-06-2024 08:12-0400 Respiratory rate 16 /min ROMAN FERNÁNDEZ MD [address] 04-06-2024 08:12-0400 Systolic Blood Pressure Non-Invasive 140 mm[Hg] ROMAN FERNÁNDEZ MD [address] 04-06-2024 06:13-0400 Blood Pressure Cuff Size ROMAN FERNÁNDEZ MD [address] 04-06-2024 06:13-0400 Blood Pressure Location ROMAN FERNÁNDEZ MD [address] [place] [address] 04-06-2024 06:13-0400 Blood Pressure Method ROMAN FERNÁNDEZ MD [address] 04-06-2024 06:13-0400 Diastolic Blood Pressure Non-Invasive 82 mm[Hg] ROMAN FERNÁNDEZ MD [address] 04-06-2024 06:13-0400 Heart rate 80 /min ROMAN FERNÁNDEZ MD [address] [place] [address] 04-06-2024 06:13-0400 Mean blood pressure 97 mm[Hg] ROMAN FERNÁNDEZ MD [address] 04-06-2024 06:13-0400 Respiratory rate 16 /min ROMAN FERNÁNDEZ MD [address] 04-06-2024 06:13-0400 Systolic Blood Pressure Non-Invasive 127 mm[Hg] ROMAN FERNÁNDEZ MD [address] [place] [address] 04-06-2024 04:38-0400 Body temperature 97.16 [degF] ROMAN FERNÁNDEZ MD [address] [place] [address] 04-06-2024 04:38-0400 Body weight 101.2 kg ROMAN FERNÁNDEZ MD [facility] 04-06-2024 04:38-0400 Heart rate 92 /min ROMAN FERNÁNDEZ MD [facility] 03-29-2024 11:15-0400 Diastolic Blood Pressure Non-Invasive 81 mm[Hg] ARLENE BARNETT DO [address] [place] [address] 03-29-2024 11:15-0400 Heart rate 81 /min ARLENE BARNETT DO [facility] 03-29-2024 11:15-0400 Respiratory rate 18 /min ARLENE BARNETT DO [facility] 03-29-2024 11:15-0400 Systolic Blood Pressure Non-Invasive 126 mm[Hg] ARLENE BARNETT DO [address] [place] [address] 03-29-2024 06:16-0400 Diastolic Blood Pressure Non-Invasive 79 mm[Hg] ARLENE BARNETT DO [facility] 03-29-2024 06:16-0400 Heart rate 73 /min ARLENE BARNETT DO [address] [place] [address] 03-29-2024 06:16-0400 Systolic Blood Pressure Non-Invasive 128 mm[Hg] ARLENE BARNETT DO [address] [place] [address] 03-29-2024 03:45-0400 Diastolic Blood Pressure Non-Invasive 76 mm[Hg] ARLENE BARNETT DO [facility] 03-29-2024 03:45-0400 Heart rate 72 /min [facility]ENE [facility]T [facility] [facility] 03-29-2024 03:45-0400 Respiratory rate 18 /min ARLENE BARNETT DO [facility] 03-29-2024 03:45-0400 Systolic Blood Pressure Non-Invasive 122 mm[Hg] ARLENE BARNETT DO [address] [place] [address] 03-29-2024 01:46-0400 Body temperature 98.24 [degF] ARLENE BARNETT DO [facility] 03-29-2024 01:46-0400 Body weight 102.5 kg ARLENE BARNETT DO [facility] 03-29-2024 01:46-0400 Respiratory rate 20 /min ARLENE BARNETT DO [facility] 02-07-2024 01:14-0400 SaO2% (BldA) [Mass fraction] 97 % NIMESH FONSECA [facility] Comment on above: Order Comment: Specimen Type: BLOOD SPEC IMEN Ordering Facility: [facility] Address: [address] [place] [address] Performed By: #### [id number] #### [facility] CLIA [id number] OF [facility] #### [id number] #### [facility] CLIA [id number] [facility] [address] [place] 02-03-2024 15:11-0400 Body height 193 cm Bonilla Pollock MD Work Phone: [facility] 02-03-2024 15:11-0400 Body mass index (BMI) [Ratio] 24.34 kg/m2 Bonilla Pollock MD Work Phone: [facility] 02-03-2024 15:11-0400 Body temperature 98.1 [degF] Bonilla Pollock MD Work Phone: [facility] 02-03-2024 15:11-0400 Body weight 90.72 kg Bonilla Pollock MD Work Phone: [facility] 02-03-2024 15:11-0400 Diastolic blood pressure 68 mm[Hg] Bonilla Pollock MD Work Phone: [facility] 02-03-2024 15:11-0400 Heart rate 90 /min Bonilla Pollock MD Work Phone: [facility] 02-03-2024 15:11-0400 Respiratory rate 14 /min Bonilla Pollock MD Work Phone: [facility] 02-03-2024 15:11-0400 SaO2% (BldA) [Mass fraction] 97 % Bonilla Pollock MD Work Phone: [facility] 02-03-2024 15:11-0400 Systolic blood pressure 117 mm[Hg] Bonilla Pollock MD Work Phone: [facility] 02-01-2024 19:04-0400 Diastolic Blood Pressure Non-Invasive 77 mm[Hg] MIQUEL BURNETT MD [facility] 02-01-2024 19:04-0400 Heart rate 81 /min MIQUEL BURNETT MD [facility] 02-01-2024 19:04-0400 Reason For Taking VItal Signs MIQUEL BURNETT MD [facility] 02-01-2024 19:04-0400 Respiratory rate 17 /min MIQUEL BURNETT MD [facility] 02-01-2024 19:04-0400 Systolic Blood Pressure Non-Invasive 131 mm[Hg] MIQUEL BURNETT MD [facility] 02-01-2024 16:30-0400 Diastolic Blood Pressure Non-Invasive 88 mm[Hg] MIQUEL BURNETT MD [facility] 02-01-2024 16:30-0400 Heart rate 79 /min MIQUEL BURNETT MD [facility] 02-01-2024 16:30-0400 Respiratory rate 17 /min MIQUEL BURNETT MD [facility] 02-01-2024 16:30-0400 Systolic Blood Pressure Non-Invasive 147 mm[Hg] MIQUEL BURNETT MD [facility] 02-01-2024 12:55-0400 Body temperature 98.06 [degF] MIQUEL BURNETT MD [facility] 02-01-2024 12:55-0400 Body weight 94 kg MIQUEL BURNETT MD [facility] 02-01-2024 12:55-0400 Diastolic Blood Pressure Non-Invasive 74 mm[Hg] MIQUEL BURNETT MD [facility] 02-01-2024 12:55-0400 Heart rate 76 /min MIQUEL BURNETT MD [facility] 02-01-2024 12:55-0400 Respiratory rate 18 /min MIQUEL BURNETT MD [facility] 02-01-2024 12:55-0400 Systolic Blood Pressure Non-Invasive 119 mm[Hg] MIQUEL BURNETT MD [facility] 01-05-2024 04:08-0400 Blood Pressure Cuff Size SEAN LIND MD [address] [place] [address] 01-05-2024 04:08-0400 Blood Pressure Location SEAN LIND MD [facility] 01-05-2024 04:08-0400 Blood Pressure Method SEAN LIND MD [address] [place] [address] 01-05-2024 04:08-0400 Body height 193 cm SEAN LIND MD [facility] 01-05-2024 04:08-0400 Body temperature 97.88 [degF] SEAN LIND MD [facility] 01-05-2024 04:08-0400 Body weight 101 kg SEAN LIND MD [facility] 01-05-2024 04:08-0400 Diastolic Blood Pressure Non-Invasive 76 mm[Hg] SEAN LIND MD [facility] 01-05-2024 04:08-0400 Heart rate 82 /min SEAN LIND MD [facility] 01-05-2024 04:08-0400 Respiratory rate 16 /min SEAN LIND MD [facility] 01-05-2024 04:08-0400 Systolic Blood Pressure Non-Invasive 121 mm[Hg] SEAN LIND MD [facility] 11-24-2023 08:08-0400 Body height 193 cm Sruthi Ambrosio APRN.SENIOR TECHNICAL ARCHITECT Work Phone: [facility] 11-24-2023 08:08-0400 Body mass index (BMI) [Ratio] 22.52 kg/m2 Sruthi Ambrosio APRN.SENIOR TECHNICAL ARCHITECT Work Phone: [facility] 11-24-2023 08:08-0400 Body temperature 98.01 [degF] Sruthi Ambrosio APRN.SENIOR TECHNICAL ARCHITECT Work Phone: [facility] 11-24-2023 08:08-0400 Body weight 83.92 kg Sruthi Ambrosio APRN.SENIOR TECHNICAL ARCHITECT Work Phone: [facility] 11-24-2023 08:08-0400 Diastolic blood pressure 88 mm[Hg] Sruthi Ambrosio APRN.SENIOR TECHNICAL ARCHITECT Work Phone: [facility] 11-24-2023 08:08-0400 Heart rate 83 /min Sruthi Ambrosio APRN.SENIOR TECHNICAL ARCHITECT Work Phone: [facility] 11-24-2023 08:08-0400 Respiratory rate 18 /min Sruthi Ambrosio APRN.SENIOR TECHNICAL ARCHITECT Work Phone: [facility] 11-24-2023 08:08-0400 SaO2% (BldA) [Mass fraction] 97 % Sruthi Ambrosio APRN.SENIOR TECHNICAL ARCHITECT Work Phone: [facility] 11-24-2023 08:08-0400 Systolic blood pressure 138 mm[Hg] Sruthi Ambrosio APRN.SENIOR TECHNICAL ARCHITECT Work Phone: [facility] 05-06-2023 11:20-0400 Body height 182.9 cm Luz Maria Perez MD Work Phone: [employer] 05-06-2023 11:20-0400 Body mass index (BMI) [Ratio] 30.24 kg/m2 Luz Maria Perez MD Work Phone: [facility] 05-06-2023 11:20-0400 Body weight 101.15 kg Luz Maria Perez MD Work Phone: [facility] 05-06-2023 11:20-0400 Diastolic blood pressure 72 mm[Hg] Luz Maria Perez MD Work Phone: [facility] 05-06-2023 11:20-0400 Heart rate 76 /min Luz Maria Perez MD Work Phone: [facility] 05-06-2023 11:20-0400 SaO2% (BldA) [Mass fraction] 98 % Luz Maria Perez MD Work Phone: [facility] 05-06-2023 11:20-0400 Systolic blood pressure 110 mm[Hg] Luz Maria Perez MD Work Phone: [facility] 03-20-2023 11:44-0400 Body height 193.04 cm [facility] 03-20-2023 11:44-0400 Body mass index (BMI) [Ratio] 26.9 kg/m2 [facility] 03-20-2023 11:44-0400 Body temperature 97.8 [degF] [facility] 03-20-2023 11:44-0400 Body weight 100.6 kg [facility] 03-20-2023 11:44-0400 Diastolic blood pressure 81 mm[Hg] [facility] 03-20-2023 11:44-0400 Heart rate 95 /min [facility] 03-20-2023 11:44-0400 Respiratory rate 18 /min [facility] 03-20-2023 11:44-0400 SaO2% (BldA) [Mass fraction] 97 % [facility] 03-20-2023 11:44-0400 Systolic blood pressure 127 mm[Hg] [facility] 02-17-2023 13:18-0400 Body height 190.5 cm Dwayne Folk [employer] Work Phone: [facility] 02-17-2023 13:18-0400 Body weight 83.73 kg Dwayne Folk [employer] Work Phone: [facility] 02-17-2023 13:18-0400 Diastolic blood pressure 61 mm[Hg] Dwayne Folk [employer].SENIOR TECHNICAL ARCHITECT Work Phone: [facility] 02-17-2023 13:18-0400 Heart rate 77 /min Dwayne Folk [employer] Work Phone: [facility] 02-17-2023 13:18-0400 Systolic blood pressure 97 mm[Hg] Dwayne Folk [employer].SENIOR TECHNICAL ARCHITECT Work Phone: [facility] 02-16-2023 14:43-0400 Diastolic Blood Pressure Non-Invasive 63 1 SUMIT BLOOM MD [facility] 02-16-2023 14:43-0400 Heart rate 81 /min SUMIT BLOOM MD [facility] 02-16-2023 14:43-0400 Systolic Blood Pressure Non-Invasive 101 1 SUMIT BLOOM MD [facility] 02-16-2023 12:16-0400 Diastolic Blood Pressure Non-Invasive 77 1 SUMIT BLOOM MD [facility] 02-16-2023 12:16-0400 Heart rate 79 /min SUMIT BLOOM MD [facility] 02-16-2023 12:16-0400 Systolic Blood Pressure Non-Invasive 124 1 SUMIT BLOOM MD [facility] 02-16-2023 10:28-0400 Heart rate 68 /min SUMIT BLOOM MD [facility] 02-16-2023 10:28-0400 Respiratory rate 16 /min SUMIT BLOOM MD [facility] 02-16-2023 09:34-0400 Body temperature 96.62 [degF] SUMIT BLOOM MD [facility] 02-16-2023 09:34-0400 Body weight 83.5 kg SUMIT BLOOM MD [facility] 02-16-2023 09:34-0400 Diastolic Blood Pressure Non-Invasive 73 1 SUMIT BLOOM MD [facility] 02-16-2023 09:34-0400 Respiratory rate 16 /min SUMIT BLOOM MD [facility] 02-16-2023 09:34-0400 Systolic Blood Pressure Non-Invasive 116 1 SUMIT BLOOM MD [facility] 01-07-2023 09:49-0400 Body height 190.5 cm Sruthi Ambrosio APRN.SENIOR TECHNICAL ARCHITECT Work Phone: [facility] 01-07-2023 09:49-0400 Body temperature 97.5 [degF] Sruthi Ambrosio APRN.SENIOR TECHNICAL ARCHITECT Work Phone: [facility] 01-07-2023 09:49-0400 Body weight 88.63 kg Sruthi Ambrosio APRN.SENIOR TECHNICAL ARCHITECT Work Phone: [facility] 01-07-2023 09:49-0400 Diastolic blood pressure 64 mm[Hg] Sruthi Ambrosio APRN.SENIOR TECHNICAL ARCHITECT Work Phone: [facility] 01-07-2023 09:49-0400 Heart rate 98 /min Sruthi Ambrosio APRN.SENIOR TECHNICAL ARCHITECT Work Phone: [facility] 01-07-2023 09:49-0400 Respiratory rate 14 /min Sruthi Ambrosio APRN.SENIOR TECHNICAL ARCHITECT Work Phone: [facility] 01-07-2023 09:49-0400 SaO2% (BldA) [Mass fraction] 94 % Sruthi Ambrosio APRN.SENIOR TECHNICAL ARCHITECT Work Phone: [facility] 01-07-2023 09:49-0400 Systolic blood pressure 122 mm[Hg] Sruthi Ambrosio APRN.SENIOR TECHNICAL ARCHITECT Work Phone: [facility] 12-10-2022 14:21-0400 Body temperature 97.81 [degF] Pratheep Pawa MD Work Phone: [facility] 12-10-2022 14:21-0400 Diastolic blood pressure 65 mm[Hg] Brit Banuelos MD Work Phone: [facility] 12-10-2022 14:21-0400 Heart rate 89 /min Brit Banuelos MD Work Phone: [facility] 12-10-2022 14:21-0400 Respiratory rate 18 /min Brit Banuelos MD Work Phone: [facility] 12-10-2022 14:21-0400 SaO2% (BldA) [Mass fraction] 96 % Brit Banuelos MD Work Phone: [facility] 12-10-2022 14:21-0400 Systolic blood pressure 140 mm[Hg] Brit Banuelos MD Work Phone: [facility] 11-22-2022 15:28-0400 Body temperature 98.91 [degF] Brit Banuelos MD Work Phone: [facility] 11-22-2022 15:28-0400 Body weight 83.46 kg Brit Banuelos MD Work Phone: [facility] 11-22-2022 15:28-0400 Diastolic blood pressure 70 mm[Hg] Brit Banuelos MD Work Phone: [facility] 11-22-2022 15:28-0400 Heart rate 99 /min Brit Banuelos MD Work Phone: [facility] 11-22-2022 15:28-0400 Respiratory rate 16 /min Brit Banuelos MD Work Phone: [facility] 11-22-2022 15:28-0400 SaO2% (BldA) [Mass fraction] 98 % Brit Banuelos MD Work Phone: [facility] 11-22-2022 15:28-0400 Systolic blood pressure 117 mm[Hg] Brit Banuelos MD Work Phone: [facility] 11-01-2022 11:09-0400 Body height 182.9 cm Luz Maria Perez MD Work Phone: [facility] [employer] 11-01-2022 11:09-0400 Body mass index (BMI) [Ratio] 25.77 kg/m2 Luz Maria Perez MD Work Phone: [facility] [employer] 11-01-2022 11:09-0400 Body weight 86.18 kg Luz Maria Perez MD Work Phone: [facility] [employer] 11-01-2022 11:09-0400 Diastolic blood pressure 60 mm[Hg] Luz Maria Perez MD Work Phone: [facility] [employer] 11-01-2022 11:09-0400 Heart rate 90 /min Luz Maria Perez MD Work Phone: [facility] [employer] 11-01-2022 11:09-0400 SaO2% (BldA) [Mass fraction] 99 % Luz Maria Perez MD Work Phone: [facility] [employer] 11-01-2022 11:09-0400 Systolic blood pressure 94 mm[Hg] Luz Maria Perez MD Work Phone: [facility] [employer] 08-25-2022 18:07-0500 Diastolic blood pressure 33 mm[Hg] Dulce Maria Barba MD Work Phone: [facility] [employer] 08-25-2022 18:07-0500 Heart rate 100 /min Dulce Maria Barba MD Work Phone: [facility] [employer] 08-25-2022 18:07-0500 Respiratory rate 14 /min Dulce Maria Barba MD Work Phone: [facility] [employer] 08-25-2022 18:07-0500 SaO2% (BldA) [Mass fraction] 99 % Dulce Maria Barba MD Work Phone: [employer] 08-25-2022 18:07-0500 Systolic blood pressure 91 mm[Hg] Dulce Maria Barba MD Work Phone: [facility] [employer] 08-25-2022 17:17-0500 Body mass index (BMI) [Ratio] 25.56 kg/m2 Dulce Maria Barba MD Work Phone: [facility] 08-25-2022 17:17-0500 Body temperature 98.2 [degF] Dulce Maria Barba MD Work Phone: [facility] 08-25-2022 17:17-0500 Body weight 95.25 kg Dulce Maria Barba MD Work Phone: [facility] 07-21-2022 13:11-0500 Body height 192.4 cm Dwayne Folk [employer] Work Phone: [facility] 07-21-2022 13:11-0500 Body weight 107.41 kg Dwayne Folk [employer] Work Phone: [facility] 07-21-2022 13:11-0500 Diastolic blood pressure 81 mm[Hg] Dwayne Folk [employer].SENIOR TECHNICAL ARCHITECT Work Phone: [facility] 07-21-2022 13:11-0500 Heart rate 101 /min Dwayne Folk [employer] Work Phone: [facility] 07-21-2022 13:11-0500 SaO2% (BldA) [Mass fraction] 98 % Dwayne Folk [employer].SENIOR TECHNICAL ARCHITECT Work Phone: [facility] 07-21-2022 13:11-0500 Systolic blood pressure 120 mm[Hg] Dwayne Folk [employer].SENIOR TECHNICAL ARCHITECT Work Phone: [facility] 07-12-2022 11:32-0500 Body weight 134.26 kg Thais Phelps [employer].SENIOR TECHNICAL ARCHITECT Work Phone: [facility] 07-12-2022 11:32-0500 Diastolic blood pressure 85 mm[Hg] Thais Phelps [employer].SENIOR TECHNICAL ARCHITECT Work Phone: [facility] 07-12-2022 11:32-0500 Heart rate 79 /min Thais Phelps [employer].SENIOR TECHNICAL ARCHITECT Work Phone: [facility] 07-12-2022 11:32-0500 Respiratory rate 16 /min Thais Phelps [employer].SENIOR TECHNICAL ARCHITECT Work Phone: [facility] 07-12-2022 11:32-0500 SaO2% (BldA) [Mass fraction] 99 % Thais Phelps [employer].SENIOR TECHNICAL ARCHITECT Work Phone: [facility] 07-12-2022 11:32-0500 Systolic blood pressure 127 mm[Hg] Thais Phelps [employer].SENIOR TECHNICAL ARCHITECT Work Phone: [facility] 02-17-2022 11:51-0400 Body height 193 cm Andegoni Sandalakis [employer]ER.SENIOR TECHNICAL ARCHITECT Work Phone: [facility] 02-17-2022 11:51-0400 Body temperature 98.1 [degF] Andegoni Sandalakis [employer].SENIOR TECHNICAL ARCHITECT Work Phone: [facility] 02-17-2022 11:51-0400 Body weight 128.82 kg Andegoni Sandalakis [employer].SENIOR TECHNICAL ARCHITECT Work Phone: [facility] 02-17-2022 11:51-0400 Diastolic blood pressure 68 mm[Hg] Andegoni Sandalakis [employer].SENIOR TECHNICAL ARCHITECT Work Phone: [facility] 02-17-2022 11:51-0400 Heart rate 84 /min Andegoni Sandalakis [employer].SENIOR TECHNICAL ARCHITECT Work Phone: [facility] 02-17-2022 11:51-0400 Respiratory rate 18 /min Andegoni Sandalakis [employer].SENIOR TECHNICAL ARCHITECT Work Phone: [facility] 02-17-2022 11:51-0400 SaO2% (BldA) [Mass fraction] 98 % Andegoni Sandalakis [employer].SENIOR TECHNICAL ARCHITECT Work Phone: [facility] 02-17-2022 11:51-0400 Systolic blood pressure 113 mm[Hg] Andegoni Sandalakis [employer].SENIOR TECHNICAL ARCHITECT Work Phone: [facility] 02-09-2022 14:54-0400 Body temperature 98.2 [degF] Renay Funk [employer]ER.SENIOR TECHNICAL ARCHITECT Work Phone: [facility] 02-09-2022 14:54-0400 Diastolic blood pressure 72 mm[Hg] Renay Funk APRN.SENIOR TECHNICAL ARCHITECT Work Phone: [facility] 02-09-2022 14:54-0400 Heart rate 89 /min Renay Funk APRN.SENIOR TECHNICAL ARCHITECT Work Phone: [facility] 02-09-2022 14:54-0400 SaO2% (BldA) [Mass fraction] 97 % Renay Funk [employer].SENIOR TECHNICAL ARCHITECT Work Phone: [facility] 02-09-2022 14:54-0400 Systolic blood pressure 127 mm[Hg] Renay Funk [employer]UM[employer].SENIOR TECHNICAL ARCHITECT Work Phone: [facility] 02-03-2022 11:33-0400 Body height 193 cm Renay Funk APRN.SENIOR TECHNICAL ARCHITECT Work Phone: [facility] 02-03-2022 11:33-0400 Body temperature 97.9 [degF] Renay Funk LUM[employer] HACKER.SENIOR TECHNICAL ARCHITECT Work Phone: [facility] 02-03-2022 11:33-0400 Body weight 135.17 kg Renay Funk LUM[employer].SENIOR TECHNICAL ARCHITECT Work Phone: [facility] 02-03-2022 11:33-0400 Diastolic blood pressure 58 mm[Hg] Renay Funk APRN.SENIOR TECHNICAL ARCHITECT Work Phone: [facility] 02-03-2022 11:33-0400 Heart rate 95 /min Renay Funk [employer]UM[employer]ER.SENIOR TECHNICAL ARCHITECT Work Phone: [facility] 02-03-2022 11:33-0400 SaO2% (BldA) [Mass fraction] 97 % Renay Funk [employer].SENIOR TECHNICAL ARCHITECT Work Phone: [facility] 02-03-2022 11:33-0400 Systolic blood pressure 124 mm[Hg] Renay Funk LUM[employer] HACKER.SENIOR TECHNICAL ARCHITECT Work Phone: [facility] 01-22-2022 10:47-0400 Body weight 137.76 kg Leroy Love Work Phone: [facility] 01-22-2022 10:47-0400 Diastolic blood pressure 68 mm[Hg] Leroy Talley MD Work Phone: [facility] 01-22-2022 10:47-0400 Heart rate 72 /min Leroy Love Work Phone: [facility] 01-22-2022 10:47-0400 Systolic blood pressure 118 mm[Hg] Leroy Talley MD Work Phone: [facility] 12-31-2021 08:10-0400 Diastolic blood pressure 74 mm[Hg] Abhinav Garrett MD Work Phone: [facility] 12-31-2021 08:10-0400 Systolic blood pressure 127 mm[Hg] Abhinav Garrett MD Work Phone: [facility] 12-31-2021 08:09-0400 Body height 193 cm Abhinav Garrett MD Work Phone: [facility] 12-31-2021 08:09-0400 Body weight 133.81 kg Abhinav Garrett MD Work Phone: [facility] 12-31-2021 08:09-0400 Heart rate 80 /min Abhinav Garrett MD Work Phone: [facility] 12-31-2021 08:09-0400 SaO2% (BldA) [Mass fraction] 98 % Abhinav Garrett MD Work Phone: [facility] 10-20-2021 14:25-0400 Body temperature 97.39 [degF] Dulce Maria Cooper DO Work Phone: [facility] 10-20-2021 14:25-0400 Diastolic blood pressure 73 mm[Hg] Dulce Maria Cooper DO Work Phone: [facility] 10-20-2021 14:25-0400 Heart rate 63 /min Dulce Maria Cooper DO Work Phone: [facility] 10-20-2021 14:25-0400 Respiratory rate 18 /min Dulce Maria Kenneth DO Work Phone: [facility] 10-20-2021 14:25-0400 SaO2% (BldA) [Mass fraction] 99 % Dulce Maria Cooper DO Work Phone: [facility] 10-20-2021 14:25-0400 Systolic blood pressure 129 mm[Hg] Dulce Maria Cooper DO Work Phone: [facility] 07-23-2021 06:44-0500 Diastolic blood pressure 60 mm[Hg] SUMIT PLUNK DO [facility] 07-23-2021 06:44-0500 Heart rate 77 /min SUMIT PLUNK [employer] [facility] 07-23-2021 06:44-0500 Mean blood pressure 79 mm[Hg] SUMIT GARZONUNK [employer] [facility] 07-23-2021 06:44-0500 Respiratory rate 18 /min SUMIT GARZONUNK [employer] [facility] 07-23-2021 06:44-0500 Systolic blood pressure 116 mm[Hg] SUMIT PLUNK [employer] [facility] 07-23-2021 02:27-0500 Diastolic blood pressure 79 mm[Hg] SUMIT GARZONUNK [employer] [facility] 07-23-2021 02:27-0500 Heart rate 89 /min SUMIT PLUNK [employer] [facility] 07-23-2021 02:27-0500 Respiratory rate 20 /min SUMIT PLUNK DO [facility] 07-23-2021 02:27-0500 Systolic blood pressure 125 mm[Hg] SUMIT PLUNK [employer] [facility] 07-23-2021 00:11-0500 Diastolic blood pressure 62 mm[Hg] SUMIT JONES DO [facility] 07-23-2021 00:11-0500 Heart rate 86 /min SUMIT GARZONUNK [employer] [facility] 07-23-2021 00:11-0500 Respiratory rate 18 /min SUMIT GARZONUNK [employer] [facility] 07-23-2021 00:11-0500 Systolic blood pressure 122 mm[Hg] SUMIT JONES [employer] [facility] 07-22-2021 22:32-0500 Mean blood pressure 84 mm[Hg] SUMIT GARZONUNK [employer] [facility] 07-22-2021 17:47-0500 Mean blood pressure 82 mm[Hg] SUMIT JONES [employer] [facility] 07-22-2021 17:47-0500 Reason For Taking VItal Signs SUMIT JOENS [employer] [facility] 07-22-2021 15:49-0500 Body temperature 98.42 [degF] SUMIT JONES [employer] [facility] 07-22-2021 15:49-0500 Reason For Taking VItal Signs SUMIT GARZON[employer] [facility] 07-22-2021 13:14-0500 Heart rate 88 /min SUMIT GARZONUNK [employer] [facility] 07-22-2021 07:22-0500 Heart rate 84 /min SUMIT GARZONUNK [employer] [facility] 07-22-2021 05:32-0500 SaO2% (BldA) [Mass fraction] 98.1 % SUMIT JONES DO [address] [facility] 07-22-2021 03:20-0500 Heart rate 97 /min SUMIT JONES [facility] 07-22-2021 02:15-0500 Body temperature 98.78 [degF] SUMIT JONES [employer] [facility] 07-21-2021 17:54-0500 Body temperature 98.78 [degF] SUMIT JONES [facility] 07-21-2021 17:54-0500 Body weight 114 kg SUMIT JONES [employer] [facility] 05-10-2019 14:24-0400 BP Diastolic 81 mm[Hg] [place], [place] 05-10-2019 14:24-0400 BP Systolic 125 mm[Hg] [place] 05-10-2019 14:24-0400 Pulse (Heart Rate) 85 /min [place], [place] 05-10-2019 14:24-0400 Pulse Oximetry 98 % [place] 05-10-2019 14:24-0400 Respiratory Rate 18 /min [place], [place] 05-10-2019 11:17-0400 Body Temperature 98.2 [degF] [facility] [place] 05-10-2019 11:16-0400 BMI (Body Mass Index) 28.61 kg/m2 [place], [place] 05-10-2019 11:16-0400 Body weight 106.59 kg [place], [place] 05-10-2019 11:16-0400 Height 193 cm Dixon Piña [facility] , [place] 05-08-2019 08:090400 BMI (Body Mass Index) 28.61 kg/m2 [facility], [place] 05-08-2019 08:09-0400 Body Temperature 97.2 [degF] [place], [place] 05-08-2019 08:09-0400 Body weight 106.59 kg [facility] , [place] 05-08-2019 08:09-0400 BP Diastolic 79 mm[Hg] [facility] , [place] 05-08-2019 08:09-0400 BP Systolic 133 mm[Hg] [facility] , [place] 05-08-2019 08:09-0400 Pulse (Heart Rate) 94 /min [place], [place] 05-08-2019 08:09-0400 Pulse Oximetry 98 % [facility] , [place] 05-08-2019 08:09-0400 Respiratory Rate 20 /min [place], [place] Encounters Encounter Date Encounter Type Care Provider Facility Start: 03-26-2025 End: 03-26-2025 Telephone encounter Robyn Taylor APRN.CNP Work Phone: [facility] [place] Start: 03-26-2025 End: 03-26-2025 Anticoagulant drug monitoring [facility] Work Phone: [facility] [place] Comment on above: Anticoagulation bryce gement encounter (Primary Dx); long-term current use of anticoagulant therapy; History of mechanical aortic valve replacement; long-term (current) use of anticoagulants Refill Request Start: 03-26-2025 End: 03-26-2025 ambulatory ROBYN TAYLOR Facility:[facility] Start: 03-25-2025 End: 03-25-2025 Telemedicine consultation with patient Marysol Cardoza MD Work Phone: Neurology Start: 03-25-2025 End: 03-25-2025 ambulatory Marysol Cardoza MD Work Phone: Neurology Comment on above: Type 1 diabetes jalil itus with diabetic polyneuropathy (HCC) (Primary Dx); Substance abuse (HCC); History of mechanical aortic valve replacement; Hypercholesterolemia; Vitamin D deficiency; long-term (current) use of anticoagulants Start: 03-19-2025 End: 03-25-2025 Telephone encounter Robyn Taylor APRN.SENIOR TECHNICAL ARCHITECT Work Phone: [facility] Comment on above: mental health concer ns Start: 03-15-2025 End: 03-15-2025 Telephone encounter Erin Morris MD Work Phone: [facility] Comment on above: Other Start: 03-15-2025 End: 03-18-[address] Nitin Irby MD -[facility] Start: 03-15-2025 End: 03-15-2025 ambulatory ROSCOE UMANZOR Work Phone: -[facility] Start: 03-15-2025 End: 03-15-2025 Office outpatient visit 25 minutes Erin Morris MD Work Phone: [facility] Comment on above: H/O mechanical aorti c valve replacement (Primary Dx); S/P aortic valve replacement; History of cocaine use; Mixed hyperlipidemia; Subvalvar aortic stenosis Start: 03-15-2025 End: 03-15-2025 ambulatory ERIN MORRIS [facility] Start: 03-14-2025 End: 03-20-2025 Refill Robyn Taylor APRN.SENIOR TECHNICAL ARCHITECT Work Phone: [facility] Comment on above: Refill Request Start: 03-08-2025 End: 03-18-2025 Telephone encounter Jaelyn Black [facility] Comment on above: Anticoagulation Tele phone Fu (INR Result) Start: 03-07-2025 End: 03-14-2025 Telephone encounter Renay Garrett MD Work Phone: [facility] Comment on above: INR; PCP; Coumadin d osing Anticoagulation (INR goal clarification) Start: 03-07-2025 End: 03-07-2025 ambulatory ROBYNTAVON TAYLOR Facility:[id number] Start: 03-07-2025 End: 03-07-2025 Office outpatient visit 25 minutes Robyn Vicki Claudia LARIOS.SENIOR TECHNICAL ARCHITECT Work Phone: [facility] Comment on above: History of aortic va lve stenosis (Primary Dx); S/P AVR (aortic valve replacement); History of mechanical aortic valve replacement; long-term current use of anticoagulant therapy; Exertional dyspnea; Peripheral edema; Iron deficiency anemia secondary to inadequate dietary iron intake; Type 1 diabetes mellitus with diabetic polyneuropathy (HCC) Start: 03-06-2025 End: 03-06-2025 Refill Robyn K Claudia LUMBER HACKER.SENIOR TECHNICAL ARCHITECT Work Phone: [facility] Comment on above: Refill Request Refill Request; futu re appointments; PCP INR orders; Refill R equest; PCP change Start: 03-04-2025 End: 03-04-2025 Telephone encounter Victorina Juares RN [facility] Comment on above: Refill Request Start: 02-28-2025 End: 02-28-2025 Patient encounter procedure Vamshi Benson MD Work Phone: [facility] Comment on above: Pain in both lower e xtremities; Type 1 diabetes mellitus with diabetic neuropathy (HCC); long term (current) use of insulin (HCC); History of heart surgery Start: 02-28-2025 End: 02-28-2025 ambulatory VAMSHI BENSON Facility:[facility] Start: 02-27-2025 End: 02-27-2025 Telephone encounter Pharmacist [facility] Comment on above: Referral Update Start: 02-27-2025 End: 02-27-2025 Office outpatient new 30 minutes Renay Garrett MD Work Phone: [facility] [place] Comment on above: H/O mechanical aorti c valve replacement (Primary Dx) Start: 02-27-2025 End: 02-27-2025 ambulatory RENAY GARRETT Facility:[facility] Start: 02-24-2025 Visit out of hours Madison Chawla MD Work Phone: [employer] Work Phone: Start: 02-22-2025 End: 02-22-2025 Anticoagulant drug monitoring [facility] Work Phone: [facility] [place] Comment on above: Anticoagulation bryce gement encounter (Primary Dx); long-term current use of anticoagulant therapy; History of mechanical aortic valve replacement; long-term (current) use of anticoagulants Start: 02-22-2025 End: 02-22-2025 ambulatory ROBYN TAYLOR Facility:[facility] Start: 02-21-2025 In-person encounter Madison gonsales MD Work Phone: [facility] [place] [facility] Work Phone: Start: 02-19-2025 End: 02-19-2025 E-mail encounter from caregiver Robyn Taylor APRN.SENIOR TECHNICAL ARCHITECT [facility]: [facility] Start: 02-19-2025 End: 02-19-2025 Patient encounter procedure Robyn Taylor LUMBER HACKER.SENIOR TECHNICAL ARCHITECT Work Phone: [facility] Comment on above: Referral Start: 02-19-2025 End: 02-19-2025 Telephone encounter Robyn Taylor LUMBER HACKER.SENIOR TECHNICAL ARCHITECT Work Phone: [facility] Comment on above: Vascular referral fa xed to AG Vascular referral info given via mychart Appointment (appt) Start: 02-18-2025 End: 02-18-2025 Patient encounter procedure [facility] Provider [facility] Start: 02-18-2025 End: 02-19-2025 Telephone encounter Robyn Taylor LUMBER HACKER.SENIOR TECHNICAL ARCHITECT Work Phone: [facility] Comment on above: Referral Information (Neurology) Appointment; Referra l Information Start: 02-13-2025 End: 02-13-2025 ambulatory ROBYN TAYLOR Facility:[id number] Start: 02-12-2025 ambulatory KRISTAL DESAI MD Facility:A Start: 02-06-2025 End: 02-06-2025 Anticoagulant drug monitoring An[facility] Work Phone: [facility] [place] Comment on above: Anticoagulation bryce gement encounter (Primary Dx); long term current use of anticoagulant therapy; History of mechanical aortic valve replacement; long-term (current) use of anticoagulants Start: 02-06-2025 End: 02-06-2025 Subsequent hospital visit by physician Ellie [facility] [place] Work Phone: Radiology Comment on above: Pleural effusion on right [J90] Start: 02-06-2025 End: 02-06-2025 ambulatory ROBYN TAYLOR Facility:[facility] Start: 02-05-2025 End: 02-05-2025 ambulatory Freddy Mujica Facility:[facility] Start: 02-05-2025 End: 02-05-[address] Freddy Mujica MD -Physical Therapy Work Phone: Start: 02-05-[address] Freddy Childress i, MD -Physical Therapy Work Phone: Start: 01-30-2025 ambulatory UNKNOWN PROVIDER Facili ty:[facility] Start: 01-28-2025 End: 01-29-2025 Telephone encounter Robyn Taylor APRN.CNP Work Phone: [facility] Comment on above: Results Start: 01-24-2025 End: 01-24-2025 Office outpatient visit 25 minutes Robyn Taylor APRN.SENIOR TECHNICAL ARCHITECT Work Phone: [facility] Comment on above: Nonrheumatic aortic valve stenosis (Primary Dx); S/P AVR (aortic valve replacement); Tachycardia; Pleural effusion on right; Iron deficiency anemia secondary to inadequate dietary iron intake; Acquired hypothyroidism; 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; Type 2 diabetes mellitus without complication, with long-term current use of insulin (HCC) Start: 01-24-2025 End: 01-24-2025 ambulatory ROBYN TAYLOR Facility:[id number] Start: 01-23-2025 End: 01-23-2025 ambulatory ROBYN TAYLOR Facility:[facility] Start: 01-23-2025 End: 01-23-2025 Anticoagulant drug monitoring [facility] Work Phone: [facility] [place] Comment on above: Anticoagulation bryce gement encounter (Primary Dx); long-term current use of anticoagulant therapy; History of mechanical aortic valve replacement; long-term (current) use of anticoagulants Start: 01-22-2025 End: 03-24-2025 Follow-up encounter Robyn Taylor LUMBER HACKER.SENIOR TECHNICAL ARCHITECT Work Phone: [facility] Start: 01-21-2025 End: 01-22-2025 Telephone encounter Robyn Freemanguero LUMBER HACKER.SENIOR TECHNICAL ARCHITECT Work Phone: [facility] Comment on above: Results Start: 01-17-[address] Freddy Childress i, MD -Physical Therapy Work Phone: Start: 01-17-2025 End: 01-17-2025 Anticoagulant drug monitoring [facility] Work Phone: [facility] [place] Comment on above: Anticoagulation bryce gement encounter (Primary Dx); long term current use of anticoagulant therapy; History of mechanical aortic valve replacement; long-term (current) use of anticoagulants Start: 01-17-2025 End: 01-17-2025 [facility] ROBYN Cohen [facility] Facility:[facility] Start: 01-16-2025 End: 01-16-2025 ambulatory ROSCOE UMANZOR Work Phone: -[facility] Start: 01-16-2025 End: 01-16-[address] Freddy Mujica MD -[facility] Work Phone: Start: 01-16-2025 End: 01-16-2025 Telephone encounter Madelaine Alexis [facility] Comment on above: Anticoagulation Tele phone Fu (Lab INR result ) Start: 01-16-2025 End: 01-16-2025 [facility] Start: 01-15-2025 End: 01-16-2025 Orders Only Jt King MD Work Phone: [facility] Comment on above: long term (current) use of anticoagulants (Primary Dx) Anticoagulation - In itial Consult Adhesive capsulitis of right shoulder (Primary Dx) Start: 01-14-2025 End: 01-14-2025 Orders Only Jt King MD Work Phone: Cardiology Comment on above: Aortic valve disorde r (Primary Dx); S/P AVR (aortic valve replacement) Start: 01-10-2025 End: 01-10-2025 Transitional care manage srvc 14 day discharge Robyn Taylor APRN.SENIOR TECHNICAL ARCHITECT Work Phone: [facility] Comment on above: Nonrheumatic aortic valve stenosis (Primary Dx); S/P AVR (aortic valve replacement); long-term current use of anticoagulant therapy; Anticoagulation management encounter; Nonrheumatic mitral valve regurgitation; Nonrheumatic tricuspid valve regurgitation; Postoperative pulmonary edema (HCC); Pleural effusion on right; Former smoker; Type 1 diabetes mellitus with diabetic polyneuropathy (HCC); Insulin pump in place; Acquired hypothyroidism; Chronic anemia; Dyslipidemia; Overweight with body mass index (BMI) of 29 to 29.9 in adult; History of drug abuse (HCC); History of asthma; Mixed anxiety and depressive disorder; Vitamin D deficiency Start: 01-10-2025 End: 01-14-2025 ambulatory [facility] Provider Cardiology Start: 01-10-2025 End: 01-21-2025 Follow-up encounter Robyn Taylor APRN.SENIOR TECHNICAL ARCHITECT Work Phone: [facility] Start: 01-10-2025 End: 01-14-2025 Patient encounter procedure [facility] Provider Cardiology Comment on above: Coumadin clinic Start: 01-10-2025 End: 01-10-2025 Telephone encounter Jt King MD Work Phone: Cardiology Comment on above: Consult Start: 01-09-2025 ambulatory ROSCOE UMANZOR Facility:[facility] Start: 01-08-2025 End: 01-08-2025 Telephone encounter Sara Sanchesy DARYN Work Phone: Cardiothoracic Comment on above: Orders Start: 01-07-2025 End: 01-07-2025 Patient encounter procedure Delfina Chaney PA-C Work Phone: Cardiothoracic Comment on above: S/P AVR (Primary Dx) ; H/O heart valve replacement with mechanical valve; Atelectasis; Dyspnea, unspecified type; ABLA (acute blood loss anemia); Thrombocytosis; Pleural effusion; Junctional rhythm; Hyperlipidemia, unspecified hyperlipidemia type Start: 01-07-2025 End: 01-07-2025 ambulatory ROSCOE ARIAS Facility:[facility] Start: 01-07-2025 End: 01-07-2025 Subsequent hospital visit by physician Xr Chest Main J1 Work Phone: Radiology Comment on above: Surgery follow-up [Z 09] Start: 12-31-2024 End: 12-31-2024 Orders Only Roscoe Arias MD Work Phone: Cardiothoracic Comment on above: Surgery follow-up (P rimary Dx) Start: 12-25-2024 End: 12-25-2024 ambulatory Stacia Pryor Research Coordinator Research Start: 12-25-2024 End: 12-31-2024 Evaluation and management of inpatient ROBYN TAYLOR Facility:[facility] Start: 12-24-2024 End: 12-24-2024 Patient encounter procedure Jared Alfonso MD Work Phone: Cardiology Start: 12-24-2024 End: 12-24-2024 ambulatory Jared Alfonso MD Work Phone: Cardiology Start: 12-23-2024 End: 12-23-2024 Telephone encounter Jared Alfonso MD Work Phone: Cardiology Comment on above: Education Of Patient /family Start: 12-20-2024 Encounter for other preprocedural examination ROBYN HOSKINSJACOB [facility] Start: 12-20-2024 End: 12-20-2024 Patient encounter procedure [facility] Work Phone: Cardiothoracic Comment on above: Pre-op testing (Prim kathryn Dx) Start: 12-20-2024 End: 12-20-2024 Patient encounter status [facility] Work Phone: [facility] Start: 12-20-2024 End: 12-20-2024 Patient encounter procedure Anesthesia Clearance Work Phone: Cardiothoracic Comment on above: Encounter for preope rative anesthesiology assessment for cardiac surgery (Primary Dx) Start: 12-20-2024 End: 12-20-2024 Admission to same day surgery center Anesthesia Clearance Work Phone: [facility] Work Phone: Start: 12-20-2024 End: 12-20-2024 Patient encounter procedure Jt King MD Work Phone: Cardiology Comment on above: Pre-operative cardio vascular examination (Primary Dx); Type 1 diabetes mellitus without complication (HCC); Acquired hypothyroidism; Aortic valve disorder; Severe aortic stenosis; Chronic pain syndrome; Primary hypertension; 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 (Primary Dx) Start: 12-20-2024 End: 12-20-2024 Patient encounter status Jt King MD Work Phone: [facility] Start: 12-20-2024 End: 12-20-2024 ambulatory Alyx Rogers Research Coordinator Research Comment on above: Patient Education Start: 12-19-2024 Encounter for preprocedural cardiovascular examination ROBYN TAYLOR [facility] Start: 12-19-2024 End: 12-19-2024 Subsequent hospital visit by physician Xr Chest Main J1 Work Phone: Radiology Comment on above: Type 1 diabetes jalil itus without complication (HCC) [E10.9] Start: 12-19-2024 End: 12-19-2024 ambulatory ROSCOE UMANZOR Facility:[facility] Start: 12-19-2024 End: 12-19-2024 Patient encounter procedure Pulm Fct Lab 2 - A110 Work Phone: Pulmonary Medicine Comment on above: Pre-operative cardio vascular examination (Primary Dx); Type 1 diabetes mellitus without complication (HCC); Acquired hypothyroidism; Aortic valve disorder Type 1 diabetes jalil itus without complication (HCC) (Primary Dx); Acquired hypothyroidism; Aortic valve disorder; Class 1 obesity due to excess calories with serious comorbidity and body mass index (BMI) of 31.0 to 31.9 in adult Start: 12-19-2024 End: 12-19-2024 Patient encounter status Pulm A110 Work Phone: [facility] Start: 12-12-2024 End: 12-12-2024 ambulatory ROSCOE UMANZOR Work Phone: [facility] Work Phone: Start: 12-12-2024 End: 12-12-[address] Freddy Mujica MD -Radiology [facility] Work Phone: Start: 12-12-2024 End: 12-12-2024 ambulatory Freddy Mujica Facility:[facility] Start: 12-07-2024 End: 12-07-2024 Telephone encounter Rehana Crockerlatanya DMD Work Phone: Dentistry Start: 12-04-2024 End: 12-04-2024 Telephone encounter Bernabe Kiran Gilmoreo DMD Work Phone: Dentistry Start: 11-30-2024 End: 11-30-2024 Patient encounter procedure Rehana Aviles DMD Work Phone: Dentistry Comment on above: Retained tooth root (Primary Dx); Type 1 diabetes mellitus without complication (HCC); Acquired hypothyroidism; Pre-operative cardiovascular examination; Aortic valve disorder; Dental caries Start: 11-30-2024 End: 11-30-2024 Patient encounter status Rehana Aviles DMD Work Phone: [facility] Start: 11-30-2024 End: 11-30-2024 ambulatory PORSCHEKathe PRODONATO Facility:[facility] Start: 11-22-2024 End: 11-22-2024 Telephone encounter Roscoe Arias MD Work Phone: Cardiothoracic Comment on above: Insurance Authorizat ion Start: 11-20-2024 End: 11-20-2024 ambulatory [facility] Facility:[facility] Start: 11-20-2024 End: 11-20-2024 Patient encounter procedure Transesophageal Echo Card Main Cardiology Comment on above: S/P transesophageal echocardiogram (LAWSON) (Primary Dx) Aortic valve disorde r Start: 11-20-2024 End: 11-20-2024 ambulatory [facility] Facility:[facility] Start: 11-20-2024 End: 11-20-2024 ambulatory ROSCOE ARIAS Facility:[facility] Start: 11-20-2024 End: 11-20-2024 Subsequent hospital visit by physician Ct 2 Main Qb (I-Stat) Radiology Comment on above: Aortic valve disorde r [I35.9] Start: 11-13-2024 End: 11-13-2024 Telephone encounter Marina Barrientos RN Cardiology Comment on above: Reminder Call (LAWSON i nstructions ) Start: 11-05-2024 End: 11-05-2024 Telephone encounter Marium Hameed RN Cardiology Comment on above: Appointment (Transes ophageal Echo 11/20/24 - need to move LAWSON from 9:15 am to 2:30 pm so LAWSON is after TTE.) Start: 08-31-2024 ambulatory ROSCOE UMANZOR Facility: A Start: 08-24-2024 End: 08-24-2024 Office outpatient visit 25 minutes Erin Morris MD Work Phone: [facility] Comment on above: S/P AVR (aortic valv e replacement) (Primary Dx); Subvalvar aortic stenosis; Congenital subaortic stenosis; Substance abuse (CMS/HCC) (HCC); Dyspnea on exertion Start: 08-24-2024 End: 08-24-2024 Orders Only Jamshid Smith MD Work Phone: Cardiology Comment on above: Aortic valve insuffi ciency, etiology of cardiac valve disease unspecified (Primary Dx); Tricuspid valve insufficiency, unspecified etiology; Mitral valve insufficiency, unspecified etiology Start: 08-17-2024 End: 10-26-2024 Telephone encounter Roscoe Arias MD Work Phone: Cardiothoracic Comment on above: Scheduling follow-up Follow Up Start: 08-15-2024 End: 08-15-2024 Telemedicine consultation with patient Roscoe Arias MD Work Phone: Cardiothoracic Start: 08-15-2024 End: 08-15-2024 ambulatory Roscoe Arias MD Work Phone: Cardiothoracic Comment on above: Nonrheumatic aortic valve stenosis (Primary Dx) Start: 08-07-2024 End: 08-07-2024 Documentation procedure Erin Morris MD Work Phone: [facility] Cardiology Start: 07-31-2024 End: 07-31-2024 ambulatory KRISTAL DESAI MD Facility:A Start: 07-25-2024 End: 07-25-2024 ambulatory ROSCOE UMANZOR MD Facility:[facility] Start: 07-25-2024 End: 07-25-[address] LUZ MARIA PEREZ MD [facility] Start: 07-17-2024 End: 07-17-2024 ambulatory ROSCOE UMANZOR Facility:A Start: 07-15-2024 ambulatory ROSCOE UMANZOR Facility: A Start: 05-16-2024 End: 05-16-2024 Patient encounter procedure [facility] Provider [facility] Department Start: 05-14-2024 End: 05-14-2024 [facility] Start: 05-14-2024 End: 05-14-2024 Office outpatient visit 25 minutes Luz Maria Perez MD Work Phone: [facility] Cardiology [facility] Comment on above: Subvalvar aortic cristobal nosis (Primary Dx); Congenital subaortic stenosis; Subaortic membrane; S/P AVR (aortic valve replacement); History of cocaine use Start: 04-30-2024 End: 04-30-2024 Telephone encounter Dwayne Araujo APRN.CNP Work Phone: [facility] Comment on above: Appointment Start: 04-18-2024 End: 04-18-2024 Between Visits [facility]OR [facility] Start: 04-16-2024 End: 04-20-2024 ambulatory ROSCOE UMANZOR Facility:[facility] Internal Medicine Start: 04-16-2024 End: 01-29-2025 Chart abstracting Robyn Taylor LUMBER HACKER.SENIOR TECHNICAL ARCHITECT Work Phone: [facility] Comment on above: Results ([facility]) Start: 04-11-2024 End: 04-11-2024 Emergency department patient visit AMANDA RUELAS DO [facility] Start: 04-06-2024 End: 04-06-2024 Emergency department patient visit ROMAN FERNÁNDEZ MD [facility] Start: 03-29-2024 End: 03-29-2024 Emergency department patient visit ARLENE Pepe ANIBAL DO [facility] Start: 03-28-2024 End: 03-29-2024 Refill Sruthi Ambrosio LUMBER HACKER.SENIOR TECHNICAL ARCHITECT Work Phone: [facility] Comment on above: Refill Request Start: 03-27-2024 End: 03-28-2024 Emergency department patient visit SRUTHI AMBROSIO Facility:[id number] Start: 03-26-2024 End: 03-26-2024 ambulatory Sruthi Ambrosio LUMBER HACKER.SENIOR TECHNICAL ARCHITECT Work Phone: [facility] Start: 03-26-2024 End: 03-26-2024 Patient encounter procedure Sruthi Ambrosio LUMBER HACKER.SENIOR TECHNICAL ARCHITECT Work Phone: [facility] Comment on above: Test strips Start: 03-18-2024 End: 03-19-2024 Refill Sruthi Ambrosio APRN.SENIOR TECHNICAL ARCHITECT Work Phone: [facility] Comment on above: Refill Request Start: 03-05-2024 End: 03-05-2024 Telephone encounter Sruthi Ambrosio APRN.SENIOR TECHNICAL ARCHITECT Work Phone: [facility] Start: 02-06-2024 End: 02-10-2024 Evaluation and management of inpatient NIMESH FONSECA Facility:[id number] Start: 02-03-2024 End: 02-03-2024 Patient encounter procedure Bonilla Pollock MD Work Phone: [facility] [place] Comment on above: Medication refill (P rimary Dx); Type 1 diabetes mellitus with diabetic polyneuropathy (HCC); Acquired hypothyroidism Start: 02-01-2024 End: 02-01-2024 Emergency department patient visit MIQUEL BURNETT MD [facility] Start: 01-26-2024 Refill Sruthi dove APRN.SENIOR TECHNICAL ARCHITECT Work Phone: [facility] Comment on above: Insulin Requested by Patient (False/Inaccurate Medical Information Given By Patient ) Start: 01-23-2024 Refill Sruthi dove APRN.SENIOR TECHNICAL ARCHITECT Work Phone: [facility] Comment on above: Refill Request Start: 01-05-2024 End: 01-05-2024 Emergency department patient visit SEAN LIND MD [facility] Start: 01-04-2024 Refill Sruthi dove APRN.SENIOR TECHNICAL ARCHITECT Work Phone: [facility] [facility] Comment on above: Refill Request Start: 01-03-2024 Telephone encounter Sruthi Cason APRN.SENIOR TECHNICAL ARCHITECT Work Phone: [facility] Start: 01-02-2024 ambulatory Sruthi dove APRN.SENIOR TECHNICAL ARCHITECT Work Phone: [facility] Start: 01-02-2024 Patient encounter procedure Sruthi Ambrosio APRN.SENIOR TECHNICAL ARCHITECT Work Phone: [facility] Comment on above: Dexcom Start: 01-02-2024 End: 01-02-2024 Telemedicine consultation with patient Mercedes Spear LUMBER HACKER.SENIOR TECHNICAL ARCHITECT Work Phone: Telemedicine Comment on above: APPOINTMENT CANCELLE D (Primary Dx) Refill Request Start: 12-09-2023 Telephone encounter Sruthi Cason APRN.SENIOR TECHNICAL ARCHITECT Work Phone: [facility] Comment on above: Results Start: 11-24-2023 End: 11-24-2023 Office outpatient visit 25 minutes Sruthi Ambrosio APRN.SENIOR TECHNICAL ARCHITECT Work Phone: [facility] Comment on above: Type 1 diabetes jalil itus with diabetic polyneuropathy (HCC) (Primary Dx); Acquired hypothyroidism; Simple chronic bronchitis (HCC); Mixed anxiety and depressive disorder; Vitamin D deficiency; Screening for prostate cancer Start: 11-18-2023 Refill Sruthi dove APRN.SENIOR TECHNICAL ARCHITECT Work Phone: [facility] Comment on above: Refill Request Start: 09-29-2023 Telephone encounter Robyn Taylor APRN.SENIOR TECHNICAL ARCHITECT Work Phone: [facility] Comment on above: Appointment Start: 09-19-2023 End: 09-19-2023 Emergency department patient visit NONE PHYSICIAN Facility:A Start: 08-15-2023 Refill Sruthi Gold i, APRN.SENIOR TECHNICAL ARCHITECT Work Phone: [facility] Comment on above: Refill Request Start: 05-26-2023 Telephone encounter Sruthi noel APRN.SENIOR TECHNICAL ARCHITECT Work Phone: [facility] Comment on above: Refill Request Start: 05-25-2023 Telephone encounter Dwayne Fo terrance LUMBER HACKER.SENIOR TECHNICAL ARCHITECT Work Phone: [facility] Comment on above: Appointment; No Show (# 1) Start: 05-25-2023 End: 05-25-2023 Patient encounter procedure Dwayne Araujo LUMBER HACKER.SENIOR TECHNICAL ARCHITECT Work Phone: [facility] Comment on above: NO SHOW (Primary Dx) Start: 05-19-2023 Telephone encounter Dwayne Fo terrance LUMBER HACKER.SENIOR TECHNICAL ARCHITECT Work Phone: [facility] Comment on above: Forms (David CMN ) Start: 05-06-2023 Telephone encounter Aniya Oviedo LUMBER HACKER - SENIOR TECHNICAL ARCHITECT Work Phone: [facility] Comment on above: Forms/questionnaires Start: 05-06-2023 End: 05-06-2023 Office outpatient visit 25 minutes Luz Maira Perez MD Work Phone: [facility] Comment on above: FALGUNI (obstructive sle ep apnea) (Primary Dx); Dyspnea on exertion; Subaortic membrane; S/P AVR (aortic valve replacement); Substance abuse (CMS/HCC) (HCC); Mixed hyperlipidemia Start: 04-25-2023 End: 04-25-2023 ambulatory [facility] Work Phone: Start: 04-25-2023 End: 04-25-2023 Patient encounter procedure [facility] Work Phone: Start: 03-20-2023 End: 03-20-2023 Emergency department patient visit [facility] Work Phone: Start: 03-04-2023 ambulatory Sruthitania Gold i LUMBER HACKER.SENIOR TECHNICAL ARCHITECT Work Phone: [facility] [place] Comment on above: Test strips Start: 03-03-2023 End: 03-03-2023 ambulatory Dwayne Araujo LUMBER HACKER.SENIOR TECHNICAL ARCHITECT Work Phone: [facility] Comment on above: Type 1 diabetes jalil itus with hyperglycemia (HCC) (Primary Dx); High risk medication use; Illicit drug use; Insulin pump status Start: 03-03-2023 End: 03-03-2023 Telemedicine consultation with patient Dwayne Van STEARNS Work Phone: [facility] Start: 02-28-2023 Refill Sruthi Gold i, APRN.CNP Work Phone: [facility] Comment on above: Refill Request Start: 02-25-2023 Telephone encounter Dwaynealona carlos APRN.SENIOR TECHNICAL ARCHITECT Work Phone: [facility] Comment on above: Patient Update Start: 02-21-2023 Refill Sruthi Gold i, APRN.SENIOR TECHNICAL ARCHITECT Work Phone: [facility] Comment on above: Refill Request Test Strips Start: 02-17-2023 End: 02-17-2023 Patient encounter procedure Dwayne Van STEARNS Work Phone: [facility] Comment on above: Type 1 diabetes jalil itus with hyperglycemia (HCC) (Primary Dx); High risk medication use; Illicit drug use Start: 02-16-2023 End: 02-16-2023 Emergency department patient visit SUMIT BLOOM MD [facility] Start: 02-14-2023 Orders Only Sruthi Gold i, APRN.CNP Work Phone: [facility] Comment on above: Type 1 diabetes jalil itus with diabetic polyneuropathy (HCC) (Primary Dx) Insurance Authorizat ion (Insulin Degludec --- PENDING ) Medication Problem Start: 02-10-2023 Telephone encounter Dwaynetal carlos APRN.SENIOR TECHNICAL ARCHITECT Work Phone: [facility] Comment on above: Letter Start: 02-07-2023 Refill Sruthi Gold i, APRN.CNP Work Phone: [facility] Comment on above: Refill Request Patient Question Refill Request (Omni pod 5 G6 pods, Gen 5, and Intro Kit ); Refill Request Start: 02-04-2023 ambulatory [facility] Start: 01-24-2023 Telephone encounter Dwaynealona carlos APRN.SENIOR TECHNICAL ARCHITECT Work Phone: [facility] Comment on above: Patient Question (Om nipod, Dexcom); Insurance Authorization (Omnipod 5 G6 Intro (Gen 5) kit and Pods --- PENDING ) Start: 01-07-2023 End: 01-07-2023 Office outpatient visit 25 minutes Sruthi Ambrosio APRN.SENIOR TECHNICAL ARCHITECT Work Phone: [facility] Comment on above: Simple chronic bronc hitis (HCC); Type 1 diabetes mellitus with hyperglycemia (HCC) Start: 12-28-2022 End: 12-28-2022 Patient encounter procedure Sruthi Ambrosio APRN.SENIOR TECHNICAL ARCHITECT Work Phone: [facility] Comment on above: No-show for appointm ent (Primary Dx) Start: 12-28-2022 End: 12-28-2022 Telemedicine consultation with patient Sruthi Ambrosio APRN.SENIOR TECHNICAL ARCHITECT Work Phone: [facility] Start: 12-24-2022 Refill Dwayne ELIAS.SENIOR TECHNICAL ARCHITECT Work Phone: [facility] Comment on above: Refill Request (Mila log ) Start: 12-10-2022 End: 12-10-2022 Office outpatient visit 15 minutes Brit Banuelos MD Work Phone: [facility] Comment on above: Simple chronic bronc hitis (HCC) (Primary Dx); Type 1 diabetes mellitus with hyperglycemia (HCC) Start: 12-10-2022 Refill Sruthi Gold i, APRNJosselynSENIOR TECHNICAL ARCHITECT Work Phone: [facility] Comment on above: Med Change Request Start: 12-09-2022 Telephone encounter Sruthi noel APRN.SENIOR TECHNICAL ARCHITECT Work Phone: [facility] Comment on above: Medication Problem Start: 11-22-2022 End: 11-22-2022 Office outpatient visit 15 minutes Brit Banuelos MD Work Phone: [facility] [place] Comment on above: Medication refill (P rimary Dx) Start: 11-01-2022 End: 11-01-2022 Office outpatient visit 25 minutes Luz Maria Perez MD Work Phone: [facility] Comment on above: Dyspnea on exertion (Primary Dx); Subvalvar aortic stenosis; S/P AVR (aortic valve replacement); Subvalvular aortic stenosis; Substance abuse (CMS/HCC) (HCC); History of drug abuse (CMS/HCC) (HCC) Start: 09-30-2022 Refill Leroy Solis MD Work Phone: Endocrinology Comment on above: Refill Request Start: 09-21-2022 Refill Leroy Solis MD Work Phone: Endocrinology Comment on above: Refill Request Start: 09-21-2022 Refill Aniya bhagat LUMBER HACKER - SENIOR TECHNICAL ARCHITECT Work Phone: [facility] Start: 09-13-2022 Telephone encounter Leroy Haywood MD Work Phone: Endocrinology Comment on above: Medication Question Start: 09-03-2022 Telephone encounter Dwayne carlos LUMBER HACKER.SENIOR TECHNICAL ARCHITECT Work Phone: [facility] Comment on above: No Show (# 2) Start: 08-30-2022 Telephone encounter Eliza Enriquez DO Work Phone: [facility] Comment on above: Patient Update Start: 08-25-2022 End: 08-25-2022 Emergency department patient visit Dulce Maria Barba MD Work Phone: [facility] Comment on above: DKA, type 1, not at goal (CMS/HCC) (HCC) (Primary Dx); Acute kidney injury (CMS/HCC) (HCC); Diabetic ketoacidosis without coma associated with type 1 diabetes mellitus (CMS/HCC) (HCC); Lactic acidosis Start: 08-25-2022 Telephone encounter Dwaynealona carlos LUMBER HACKER.SENIOR TECHNICAL ARCHITECT Work Phone: [facility] Comment on above: Medication Request Start: 08-02-2022 ambulatory Junior Adhikari RN [facility] Start: 07-23-2022 Telephone encounter Dwaynealona carlos LUMBER HACKER.SENIOR TECHNICAL ARCHITECT Work Phone: [facility] Comment on above: Medication Problem ( Needs dexcom G6 sensors) Start: 07-21-2022 End: 07-21-2022 Patient encounter procedure Dwayne Araujo LUMBER HACKER.SENIOR TECHNICAL ARCHITECT Work Phone: [facility] Comment on above: Type 1 diabetes jalil itus with hyperglycemia (HCC) (Primary Dx); Insulin pump status; High risk medication use Start: 07-15-2022 ambulatory [facility] Start: 07-15-2022 Patient encounter procedure [facility] Start: 07-15-2022 Telephone encounter Leroy Haywood MD Work Phone: Endocrinology Comment on above: Medication Problem ( Freestyle [place] 2 Sensors) Wants to discuss tod ay's discussion Start: 07-12-2022 Telephone encounter Thais RUIZSENIOR TECHNICAL ARCHITECT Work Phone: [facility] Comment on above: Medication Problem; Orders Start: 07-12-2022 End: 07-12-2022 Patient encounter procedure Thais Phelps APRN.SENIOR TECHNICAL ARCHITECT Work Phone: [facility] Comment on above: Dental infection (Pr imary Dx); Medication refill; SOB (shortness of breath) Start: 07-07-2022 Refill Casey amador MD Work Phone: Endocrinology Comment on above: Refill Request Start: 07-01-2022 Telephone encounter Dwaynealona carlos LUMBER HACKER.SENIOR TECHNICAL ARCHITECT Work Phone: [facility] Comment on above: No Show (# 1) Start: 07-01-2022 End: 07-01-2022 Patient encounter procedure Dwayne Araujo APRN.SENIOR TECHNICAL ARCHITECT Work Phone: [facility] Comment on above: NO SHOW (Primary Dx) Start: 06-30-2022 Refill Leroy Solis MD Work Phone: Endocrinology Start: 06-29-2022 Nurse Triage Sonam Meek RN NURSE O N CALL Comment on above: Refill Request Orders; Care Coordin ator - Other Start: 06-28-2022 Telephone encounter Leroy Haywood MD Work Phone: Endocrinology Comment on above: Patient Update (Dexc om Sensor Sample Kit) Start: 06-25-2022 Telephone encounter Kylee cardenas MD Work Phone: [facility] Comment on above: Patient Question (De xcom sample) Start: 05-05-2022 ambulatory Gely Garg esearch Coordinator [facility] Start: 2022 ambulatory UNKNOWN PROVIDER [facility] Start: 02-23-2022 Telephone encounter Roscoe lira MD Work Phone: Cardiology Comment on above: Post Dc Program Call - Fyi; Post Dc Program Call - Needs Attn Start: 02-17-2022 End: 02-17-2022 Patient encounter procedure Courtney Gabriel APRN.SENIOR TECHNICAL ARCHITECT Work Phone: Cardiothoracic Comment on above: Visit for wound chec k (Primary Dx); Wound disruption, post-op, skin, initial encounter; Post-op pain Start: 02-15-2022 Telephone encounter Roscoe lira MD Work Phone: Cardiology Comment on above: Post Dc Program Call - Needs Attn Start: 02-09-2022 End: 02-09-2022 Patient encounter procedure Renay Funk APRN.SENIOR TECHNICAL ARCHITECT Work Phone: Cardiothoracic Comment on above: Wound drainage (Prim kathryn Dx) Start: 02-09-2022 Telephone encounter Roscoe lira MD Work Phone: Cardiology Comment on above: Post Dc Program Call - Needs Attn Start: 02-08-2022 ambulatory Renay Blessing APR N.SENIOR TECHNICAL ARCHITECT Work Phone: Cardiothoracic Comment on above: Pain Management Start: 02-04-2022 Telephone encounter Roscoe ilra MD Work Phone: Cardiology Comment on above: Patient Question; Me dication Problem Start: 02-03-2022 End: 02-03-2022 Patient encounter procedure Renay Funk LUMBER HACKER.SENIOR TECHNICAL ARCHITECT Work Phone: Cardiothoracic Comment on above: Atelectasis (Primary Dx); Post-op pain; Type 1 diabetes mellitus with diabetic polyneuropathy (HCC) Start: 02-01-2022 Telephone encounter Sunday MOYA Comment on above: Post Dc Program Call - Urgent (SOB, Bi-Lateral Swelling, & Drainage) Start: 01-29-2022 Orders Only Abhinav Garrett MD Work Phone: Cardiology Comment on above: Atelectasis (Primary Dx); Nonrheumatic mitral valve regurgitation Start: 01-25-2022 End: 01-25-2022 Admission to same day surgery center Anesthesia Clearance Work Phone: Cardiothoracic Start: 01-25-2022 End: 01-25-2022 Patient encounter procedure Anesthesia Clearance Work Phone: Cardiothoracic Comment on above: Encounter for preope rative anesthesiology assessment for cardiac surgery (Primary Dx) Pre-op testing (Prim kathryn Dx) Start: 01-25-2022 ambulatory Rocsoe stover MD Work Phone: Cardiothoracic Comment on above: Patient Education Start: 01-25-2022 End: 01-25-2022 Patient encounter procedure Roscoe Arias MD Work Phone: Cardiothoracic Comment on above: Pre-operative cardio vascular examination (Primary Dx) Start: 01-25-2022 End: 01-25-2022 Patient encounter status Roscoe Arias MD Work Phone: [facility] Start: 01-22-2022 End: 12-19-2024 Patient encounter status Pulm 10 Other Phone: [facility] Start: 01-22-2022 End: 01-22-2022 ambulatory Pulm Fct Lab Main 10 Other Phone: Pulmonary Medicine Comment on above: Spirometry Start: 01-22-2022 End: 01-22-2022 Preprocedural examination done Pulm Fct Lab Main 10 Other Phone: Pulmonary Medicine Start: 01-22-2022 End: 01-22-2022 Patient encounter procedure Pulm Fct Lab Main 10 Other Phone: [facility] Comment on above: Type 1 diabetes jalil itus without complication (HCC) (Primary Dx); Type 1 diabetes mellitus with hyperglycemia (HCC); Insulin pump status Start: 01-19-2022 ambulatory UNKNOWN PROVIDER [facility] Start: 01-01-2022 Patient encounter status Antione Arias MD Work Phone: Cardiothoracic Start: 01-01-2022 Telephone encounter Roscoe lira MD Work Phone: Cardiothoracic Comment on above: Cardiac Preop Checkl ist Start: 12-31-2021 End: 12-31-2021 Patient encounter procedure Roscoe Arias MD Work Phone: Cardiothoracic Comment on above: Subaortic membrane ( Primary Dx) Start: 12-31-2021 End: 12-31-2021 Subsequent hospital visit by physician Xr Chest Main J1 Work Phone: Radiology Comment on above: Subaortic membrane [ Q24.4] Start: 12-31-2021 End: 12-31-2021 Patient encounter procedure Abhinav Garrett MD Work Phone: Cardiology Comment on above: Subaortic membrane ( Primary Dx); Type 1 diabetes mellitus with diabetic polyneuropathy (HCC); Dyslipidemia; Obesity (BMI 30-39.9); Dyspnea, unspecified type; Ex-smoker Start: 11-12-2021 End: 11-12-2021 ambulatory UNKNOWN PROVIDER [facility] Start: 10-30-2021 Telephone encounter Roscoe lira MD Work Phone: Cardiothoracic Comment on above: Case Review Start: 10-27-2021 Telephone encounter No One Pcp (Raven mckeon) Referring Physician Comment on above: External Referrals/r esources Insurance Authorizat ion Start: 10-20-2021 End: 10-20-2021 Emergency department patient visit Dulce Maria Cooper DO Work Phone: [facility] Comment on above: Chest pain, unspecif ied type (Primary Dx) Start: 10-07-2021 End: 10-07-2021 ambulatory Beto Linares [facility] Start: 09-23-2021 ambulatory Erika Taveras [facility] Start: 09-23-2021 End: 09-23-2021 Subsequent hospital visit by physician Erika Taveras APRN - SENIOR TECHNICAL ARCHITECT Work Phone: [facility] [address] Comment on above: Subvalvar aortic cristobal nosis; LVH (left ventricular hypertrophy) Start: 07-21-2021 End: 07-23-2021 Emergency department patient visit SUMIT JONES DO [facility] Start: 04-30-2021 End: 04-30-2021 Subsequent hospital visit by physician Giovanni Ellis CNP Work Phone: [facility] Comment on above: Acquired hypothyroid ism Start: 01-20-2021 End: 01-20-2021 Subsequent hospital visit by physician Jessee Carrasco MD Work Phone: [facility] Comment on above: Type 1 diabetes jalil itus without complication (HCC); Acquired hypothyroidism; Chronic fatigue Start: 01-15-2021 End: 01-15-2021 Subsequent hospital visit by physician Kaela MALDONADOC Work Phone: [facility] Comment on above: Chronic right hip pa in Start: 12-18-2020 End: 12-18-2020 Subsequent hospital visit by physician Giovanni Ellis SENIOR TECHNICAL ARCHITECT Work Phone: [facility] Comment on above: Type 1 diabetes jalil itus with hyperglycemia (HCC); Elevated liver enzymes; Screening for HIV (human immunodeficiency virus); Acquired hypothyroidism Start: 12-18-2020 End: 12-18-2020 Subsequent hospital visit by physician Giovanni Ellis CNP Work Phone: [facility] Comment on above: Dysuria Start: 12-01-2020 End: 12-01-2020 Subsequent hospital visit by physician Areli Rajput APRN ANNUAL CAMPAIGN MANAGER Work Phone: [facility] Comment on above: Acute cystitis with hematuria Start: 11-27-2020 End: 11-27-2020 Subsequent hospital visit by physician Areli Rajput APRN ANNUAL CAMPAIGN MANAGER Work Phone: [facility] Comment on above: Acute cystitis with hematuria Start: 11-06-2020 End: 11-06-2020 Subsequent hospital visit by physician Giovanni Ellis SENIOR TECHNICAL ARCHITECT Work Phone: [facility] [place] Comment on above: Right hip pain Start: 10-24-2020 End: 10-24-2020 Subsequent hospital visit by physician Areli Rajput APRN ANNUAL CAMPAIGN MANAGER Work Phone: [facility] [place] Comment on above: Shortness of breath; Cough Start: 12-06-2019 End: 12-07-2019 Patient encounter procedure LUZ MARIA PEREZ Facility:[facility] Start: 08-31-2019 End: 09-01-2019 Patient encounter procedure [facility] Start: 08-31-2019 End: 08-31-2019 Subsequent hospital visit by physician Daria SIMMONS EKG Start: 05-10-2019 End: 05-10-2019 Emergency department patient visit Dixon Piña Work Phone: [facility] Comment on above: Cellulitis and absce ss of trunk (Primary Dx) Start: 05-08-2019 End: 05-08-2019 Emergency department patient visit Cr Gillette Work Phone: [facility] Comment on above: Acute bacterial conj unctivitis of both eyes (Primary Dx) Start: 10-23-2018 Patient encounter procedure YADI THOMPSON Facility:[id number] Start: 06-08-2018 End: 06-08-2018 [facility] Start: 03-31-2018 End: 03-31-2018 Emergency department patient visit DIAZ MARIN [facility] Procedures Date Procedure Procedure Detail Performing Clinician Start: 03-15-2025 X-ray of cervical spine ROSCOE ERNA Work Phone: Start: 03-07-2025 Prothrombin time [facility] Pr ovider Start: 02-24-2025 Blood pressure withi n normal parameters - no follow-up required Madison Regan MD Work Phone: Start: 02-24-2025 BMI outside of sabrina l parameters - no follow-up plan/reason not given Madison Regan MD Work Phone: Start: 02-24-2025 Current tobacco non- user cad cap copd pv dm Madison Regan MD Work Phone: Start: 02-24-2025 Documentation of cur rent medications Madison Regan MD Work Phone: Start: 02-24-2025 Pain assessment docu mented as positive - no follow-up/reason not given Madison Regan MD Work Phone: Start: 02-06-2025 Radiologic exam ches t 2 views Robyn Taylor LUMBER HACKER.SENIOR TECHNICAL ARCHITECT Work Phone: Start: 02-06-2025 Prothrombin time [facility] Pr ovider Start: 01-23-2025 Prothrombin time [facility] Pr ovider Start: 01-16-2025 MRI of cervical spine Junie UMANZOR Work Phone: Start: 01-16-2025 Thyrotropin [Units/v olume] in Serum or Plasma Erin Morris MD Work Phone: Start: 01-10-2025 Prothrombin time Torrie scar Taylor LUMBER HACKER.SENIOR TECHNICAL ARCHITECT Work Phone: Start: 01-07-2025 Radiologic exam ches t 2 views Roscoe Arias MD Work Phone: Start: 12-19-2024 Antibody screen ROBYN TAYLOR Comment on above: Order Comment: Speci men Type: BLOOD SPECIMENOrdering Facility: [facility] Address: [address] [place] [address] Performed By: #### T [id number] ####CC MAIN BLOOD BANKCLIA [id number] [facility] [id number] [place] Start: 12-19-2024 Radiologic exam ches t 2 views Roscoe Arias MD Work Phone: Start: 12-19-2024 Spmtry w/vc expirato ry dirk w/wo mxml vol vntj Roscoe Arias MD Work Phone: Start: 12-12-2024 X-ray of cervical spine ROSCOE UMANZOR Work Phone: Start: 11-20-2024 Echo transthorc r-t 2d w/wo m-mode rec f-up/lmtd Roscoe Arias MD Work Phone: Start: 11-20-2024 Echocardiography TORRIE N TEMSIC Start: 11-20-2024 Creatinine [Mass/vol ume] in Serum or Plasma [facility] Provider Start: 08-24-2024 Ecg routine ecg w/le ast 12 lds w/i&r Erin Morris MD Work Phone: Start: 04-16-2024 C-reactive protein [facility] Provider Start: 04-16-2024 CMP EXTERNAL QAI [facility] Pr ovider Start: 04-16-2024 Hemoglobin A1c/Hemoglobin.total in Blood [facility] Provider Start: 04-16-2024 HEP C VIRUS ANTIBODY ([facility]) [facility] Provider Start: 04-16-2024 HIV 1&2 ANTIBODY SCR EEN/P24 ANTIGEN [facility] Provider Start: 04-16-2024 Lipid panel [facility] Provid er Start: 04-16-2024 Thyrotropin [Units/v olume] in Serum or Plasma [facility] Provider Start: 04-16-2024 VITAMIN D 25 HYDROXY Cc f Provider Start: 02-07-2024 Thyrotropin [Units/v olume] in Serum or Plasma Luz Maria Perez MD Work Phone: Start: 12-07-2023 Lipid 1996 panel - S jared or Plasma Erin Morris MD Work Phone: Start: 08-25-2022 POCT GLUCOSE METER UNSOLICITED RESULTS Dulce Maria Barba MD Work Phone: Start: 08-25-2022 Blood gases any comb ination ph pco2 po2 co2 hco3 Dulce Maria Barba MD Work Phone: Start: 08-25-2022 Ecg routine ecg w/le ast 12 lds trcg only w/o i&r Casey Marga LUMBER HACKER [facility] Work Phone: Start: 08-25-2022 Comprehensive metabo lic panel Casey Marga [facility] Work Phone: Start: 08-25-2022 POCT GLUCOSE METER UNSOLICITED RESULTS Dulce Maria Barba MD Work Phone: Start: 07-21-2022 Hemoglobin A1c/Hemoglobin.total in Blood Dwayne Folk LUMBER HACKER.[facility] Work Phone: Start: 02-17-2022 Cul bact xcpt urine blood/stool aerobic isol Andegoni Dario LUMBER HACKER.[facility] Work Phone: Start: 02-16-2022 Thyrotropin [Units/v olume] in Serum or Plasma Aniya Oviedo [facility] Work Phone: Start: 01-22-2022 Spmtry w/vc expirato ry dirk w/wo mxml vol vntj Roscoe Arias MD Work Phone: Start: 01-22-2022 Hemoglobin A1c/Hemoglobin.total in Blood Leroy Talley MD Work Phone: Start: 12-31-2021 Ct thorax w/o contra st material Roscoe Arias MD Work Phone: Start: 12-31-2021 Radiologic exam ches t 2 views Roscoe Arias MD Work Phone: Start: 10-20-2021 Radiologic exam ches t single view Casey Gresham [facility] Work Phone: Start: 10-20-2021 End: 10-20-2021 Comprehensive metabolic panel Casey Gresham [facility] Work Phone: Start: 10-20-2021 Ecg routine ecg w/le ast 12 lds w/i&r Casey Gresham [facility] Work Phone: Start: 09-23-2021 Echo tthrc r-t 2d w/ wom-mode compl spec&colr d Erika S Radha [facility] Work Phone: Start: 04-30-2021 Comprehensive metabo lic panel Giovanni Ellis [facility] Work Phone: Start: 04-30-2021 GLOMERULAR FILTRATION RATE Giovanni Ellis [facility] Work Phone: Start: 04-30-2021 Adult depression scr eening assessment Giovanni Ellis [facility] Work Phone: Start: 01-20-2021 MICROALBUMIN URINE R ANDOM W/CREATININE RATIO Jessee Carrasco MD Work Phone: Start: 01-15-2021 Injection hip arthro graphy w/o anesthesia Kaela Fatima PA-C Work Phone: Start: 01-06-2021 Adult depression scr eening assessment Kaela Fatima PA-C Work Phone: Start: 12-18-2020 CBC W Auto Different ial panel - Blood Giovanni Ellis [facility] Work Phone: Start: 12-18-2020 Comprehensive metabo lic panel Giovanni Ellis [facility] Work Phone: Start: 12-18-2020 GLOMERULAR FILTRATION RATE Giovanni Ellis [facility] Work Phone: Start: 12-18-2020 Iaad ia hiv-1 ag w/h iv-1 & hiv-2 antbdy single Giovanni Ellis [facility] Work Phone: Start: 12-18-2020 Lipid panel Giovanni brown [facility] Work Phone: Start: 12-18-2020 Lipid 1996 panel - S jared or Plasma Giovanni Ellis SENIOR TECHNICAL ARCHITECT Work Phone: Start: 11-27-2020 Adult depression scr eening assessment Areli Rajput APRN ANNUAL CAMPAIGN MANAGER Work Phone: Start: 11-06-2020 Adult depression scr eening assessment Giovanni Ellis SENIOR TECHNICAL ARCHITECT Work Phone: Start: 10-24-2020 Radiologic exam ches t 2 views Areli Rajput APRN ANNUAL CAMPAIGN MANAGER Work Phone: Start: 10-24-2020 Adult depression scr eening assessment Areli Rajput APRN ANNUAL CAMPAIGN MANAGER Work Phone: Start: 10-06-2020 3 comp foot exam completed Areli Rajput APRN ANNUAL CAMPAIGN MANAGER Work Phone: Start: 08-31-2019 Ecg routine ecg w/le ast 12 lds w/i&r HANS FAGAN Start: 05-10-2019 Blood count complete auto&auto difrntl wbc Casey Gresham Work Phone: Start: 05-10-2019 C-reactive protein Jerrell Gresham Work Phone: Start: 05-10-2019 Comprehensive metabo lic panel Casey Gresham Work Phone: Start: 05-10-2019 Sedimentation rate r bc automated Casey Gresham Work Phone: Start: 06-08-2018 POCT GLUCOSE DIAZ GROSSMAN Start: 06-08-2018 Urnls dip stick/tabl et rgnt auto w/o microscopy DIAZ MARIN Start: 06-08-2018 Assay of lipase DIAZ MARIN Start: 06-08-2018 Blood count complete auto&auto difrntl wbc DIAZ MARIN Start: 06-08-2018 Comprehensive metabo lic panel DIAZ MARIN Start: 06-08-2018 Hepatic function panel DIAZ MARIN Start: 06-08-2018 LACTIC ACID, PLASMA JOSE MARIN Start: 06-08-2018 TROPONIN DIAZ GROSSMAN Start: 06-08-2018 BLOOD GAS, VENOUS RAYMO CLAY TANIA Start: 06-08-2018 EKG 12-LEAD DIAZ GROSSMAN Start: 06-08-2018 POCT GLUCOSE DIAZ GROSSMAN Start: 03-31-2018 NURSING COMMUNICATION R SOTEROTHALIA MARIN Start: 03-31-2018 INSERT PERIPHERAL IV RA SARA MARIN Start: 03-31-2018 PULSE OXIMETRY, CONTINUOUS DIAZ MARIN Start: 03-31-2018 TELEMETRY MONITORING RA SARA MARIN Start: 03-31-2018 POCT GLUCOSE DIAZ GROSSMAN Insertion of hip prosthesis DR LUZ MARIA PEREZ MD Comment on above: right Open heart surgery DR LUZ MARIA STEPHENSON MD Repair of shoulder DR LUZ MARIA STEPHENSON MD Structure of carpal canal (body structure) DR LUZ MARIA PEREZ MD Plan of Treatment Date Care Activity Detail Author Start: 2054 RSV Immunization for Adults (1 - 1-dose 75+ series) RSV Immunization for Adults (1 - 1-dose 75+ series) [facility] Start: 2044 PNEUMOCOCCAL (3 - PPSV23 if available, else PCV20) PNEUMOCOCCAL (3 - PPSV23 if available, else PCV20) [facility] Start: 2044 PNEUMOCOCCAL (3 - PPSV23 or PCV20) PNEUMOCOCCAL (3 - PPSV23 or PCV20) [facility] Start: 2044 Pneumococcal 0-64 years Vaccine (2 of 2 - PPSV23) Pneumococcal 0-64 years Vaccine (2 of 2 - PPSV23) [facility] [place] Start: 2044 Pneumococcal 0-64 years Vaccine (3 - PPSV23 or PCV20) Pneumococcal 0-64 years Vaccine (3 - PPSV23 or PCV20) [facility] [place] Start: 2044 Pneumococcal vaccination [facility] Start: 2044 Pneumococcal Vaccine: Pediatrics (0 to 5 Years) and At-Risk Patients (6 to 64 Years) (3 - PPSV23 if available, else PCV20) Pneumococcal Vaccine: Pediatrics (0 to 5 Years) and At-Risk Patients (6 to 64 Years) (3 - PPSV23 if available, else PCV20) [facility] Start: 2044 Pneumococcal Vaccine: Pediatrics (0 to 5 Years) and At-Risk Patients (6 to 64 Years) (3 - PPSV23 or PCV20) Pneumococcal Vaccine: Pediatrics (0 to 5 Years) and At-Risk Patients (6 to 64 Years) (3 - PPSV23 or PCV20) [facility] Start: 2044 Pneumococcal Vaccine: Pediatrics (0 to 5 Years) and At-Risk Patients (6 to 64 Years) (3 of 3 - PPSV23 or PCV20) Pneumococcal Vaccine: Pediatrics (0 to 5 Years) and At-Risk Patients (6 to 64 Years) (3 of 3 - PPSV23 or PCV20) [facility] Start: 2029 Pneumococcal vaccination Pneumococcal Vaccine (3 of 3 - PCV20 or PCV21) [facility] Start: 2029 Pneumococcal Vaccine: Pediatrics (0 to 5 Years) and At-Risk Patients (6 to 49 Years) (3 of 3 - PCV20 or PCV21) Pneumococcal Vaccine: Pediatrics (0 to 5 Years) and At-Risk Patients (6 to 49 Years) (3 of 3 - PCV20 or PCV21) [facility] Start: 2029 Shingles Vaccine (1 of 2) Shingles Vaccine (1 of 2) [place] Start: 2029 Zoster Vaccines (1 of 2) Zoster Vaccines (1 of 2) [facility] Start: 04-04-2029 Diphtheria + pertussis + tetanus vaccine (product) [facility] Start: 04-04-2029 DTaP/Tdap/Td vaccine (3 - Td or Tdap) DTaP/Tdap/Td vaccine (3 - Td or Tdap) [facility] [place] Start: 04-04-2029 DTaP/Tdap/Td vaccine (3 - Td) DTaP/Tdap/Td vaccine (3 - Td) [place] Start: 04-04-2029 DTaP/Tdap/Td Vaccines (3 - Td or Tdap) DTaP/Tdap/Td Vaccines (3 - Td or Tdap) [facility] Start: 04-04-2029 Urine microalbumin profile [facility] Start: 03-07-2026 Annual PCP Team Chronic Disease Visit Annual PCP Team Chronic Disease Visit [facility] Start: 02-28-2026 End: 02-28-2026 Patient encounter procedure 02/28/2026 1:00 PM EDT Office Visit [facility] [address] [place] [phone] Renay Garrett MD [address] [place] [phone] physical [facility] Comment on above: physical Start: 02-27-2026 Annual PCP Team Chronic Disease Visit Annual PCP Team Chronic Disease Visit [facility] Start: 02-13-2026 Annual PCP Team Chronic Disease Visit Annual PCP Team Chronic Disease Visit [facility] Start: 01-24-2026 Annual PCP Team Chronic Disease Visit Annual PCP Team Chronic Disease Visit [facility] Start: 01-16-2026 Diabetes: Estimated Glomerular Filtration Rate for Kidney [facility] Diabetes: Estimated Glomerular Filtration Rate for Kidney [facility] Start: 01-16-2026 Diabetes: Urine Albumin-Creatinine Ratio for Kidney [facility] Diabetes: Urine Albumin-Creatinine Ratio for Kidney [facility] Start: 01-16-2026 Hemoglobin A1c measurement Diabetes: Hemoglobin A1C [facility] Start: 01-16-2026 Hepatitis B screening Urine Albumin:Creatinine Ratio [facility] Start: 01-16-2026 Hepatitis B surface antibody level LDL Cholesterol [facility] Start: 01-16-2026 Thyroid stimulating hormone measurement TSH Level [facility] Start: 01-10-2026 Annual PCP Team Chronic Disease Visit Annual PCP Team Chronic Disease Visit [facility] Start: 12-18-2025 Fasting lipid profile LIPID SCREENING [facility] Start: 09-12-2025 Depression Monitoring Depression Monitoring [facility] Start: 08-05-2025 End: 08-05-2025 Patient encounter procedure 08/05/2025 1:00 PM EST Office Visit Cardiology [address] [place] [address] Guy Sam MD [address] [phone] Aortic Value disorder Cardiology Comment on above: Aortic Value disorder Start: 07-19-2025 Hemoglobin A1c measurement HbA1C [facility] Start: 07-16-2025 End: 07-16-2025 Patient encounter procedure 07/16/2025 2:40 PM EST Office Visit [facility] [place] [address] [facility] [place] [phone] Robyn Taylor, LUMBER HACKER.SENIOR TECHNICAL ARCHITECT [address] [place] [address] Annual Wellness [facility] Comment on above: Annual Wellness Start: 06-20-2025 Hemoglobin A1c measurement HbA1C [facility] Start: 06-14-2025 End: 06-14-2025 Patient encounter procedure 06/14/2025 10:00 AM EST Office Visit [facility] [employer] [place] [address] [place] [phone] Erin Morris MD [address] [place] [phone] [employer] Start: 04-21-2025 End: 07-20-2025 CBC W Auto Differential panel - Blood COMPLETE BLOOD COUNT AND DIFFERENTIAL Lab Routine Iron deficiency anemia secondary to inadequate dietary iron intake Expected: 04/21/2025 (Approximate), Expires: 07/20/2025 [facility] Work Phone: Comment on above: Expected: 04/21/2025 (Approximate), Expi res: 07/20/2025 Start: 04-21-2025 End: 07-20-2025 Ferritin [Mass/volume] in Serum or Plasma FERRITIN Lab Routine Iron deficiency anemia secondary to inadequate dietary iron intake Expected: 04/21/2025 (Approximate), Expires: 07/20/2025 [facility] Comment on above: Expected: 04/21/2025 (Approximate), Expi res: 07/20/2025 Start: 04-21-2025 End: 07-20-2025 Iron and Iron binding capacity panel - Serum or Plasma IRON AND TIBC Lab Routine Iron deficiency anemia secondary to inadequate dietary iron intake Expected: 04/21/2025 (Approximate), Expires: 07/20/2025 [facility] Comment on above: Expected: 04/21/2025 (Approximate), Expi res: 07/20/2025 Start: 04-16-2025 End: 04-16-2025 Anticoagulant drug monitoring 04/16/2025 1:00 PM EDT Antico[facility] Visit [facility] [place] [id number] [place], [place] [phone] Wstr, Anticoag [facility] [address] [place] [address] inr [facility] [place] Comment on above: inr Start: 04-02-2025 ambulatory Ambulatory Facility:[facility] Start: 04-01-2025 End: 04-01-2025 Patient encounter procedure 04/01/2025 2:00 PM EDT Appointment [facility] Non-Invasive Cardiology [address] [place] [address] Erin Morris MD [address] [place] [phone] [facility] Start: 03-27-2025 ambulatory Ambulatory Facility:[facility] Start: 03-26-2025 End: 03-26-2025 Anticoagulant drug monitoring 03/26/2025 12:00 PM EDT Anticoagulation Visit [facility] [place] [address] [place] [address] Wstr, Anticoag [facility] [address] [place] [address] INR [facility] [place] Comment on above: INR Start: 03-25-2025 End: 03-25-2025 ambulatory 03/25/2025 4:00 PM EDT [facility] [address] [place] [address] Marysol Cardoza MD [address] [place] [address] DIABETIC NEUROPATHY Neurology Comment on above: DIABETIC NEUROPATHY Start: 03-15-2025 End: 03-15-2027 US Heart Transthoracic Transthoracic echocardiogram (TTE) complete with contrast, bubble, strain, and 3D PRN CV Echocardiography Routine H/O mechanical aortic valve replacement Expected: 03/15/2025 (Approximate), Expires: 03/15/2027 [employer] Work Phone: Comment on above: Expected: 03/15/2025 (Approximate), Expi res: 03/15/2027 Start: 03-15-2025 X-ray of cervical spine Cerv Spine 2 or 3 Views [facility] Start: 03-15-2025 XR Cervical spine 2 or 3 Views [facility] Start: 03-12-2025 End: 03-12-2025 ambulatory 03/12/2025 8:30 AM EDT [facility] [address] [place], [place] [phone] Marysol Cardoza MD [address] [place], [place] [phone] DIABETIC NEUROPATHY Neurology Comment on above: DIABETIC NEUROPATHY Start: 03-11-2025 COVID-19 Vaccine ( season) COVID-19 Vaccine () [facility] Start: 03-11-2025 Influenza vaccination Influenza Vaccine (#1) [facility] Start: 03-07-2025 End: 03-07-2025 Anticoagulant drug monitoring 03/07/2025 12:00 PM EDT Anticoagulation Visit [facility] [address] [place] [address] Wstr, Anticoag [facility] [address] [place] [address] inr [facility] Comment on above: inr Start: 03-07-2025 End: 03-07-2025 Patient encounter procedure 03/07/2025 8:20 AM EDT Office Visit [facility] [address] [place] [address] Robyn Taylor, LUMBER HACKER.SENIOR TECHNICAL ARCHITECT [address] [place], [place] [phone] [facility] Start: 02-28-2025 End: 02-28-2025 Patient encounter procedure 02/28/2025 11:30 AM EDT Office Visit [facility] [address] [place], [place] [phone] Vamshi Benson MD [address] [facility] [address] [place] [address] New Internal Referral from Robyn Taylor APRN.SENIOR TECHNICAL ARCHITECT for PVD (Numbness of right foot, Type 1 diabetes mellitus with diabetic polyneuropathy) - PVR 12/19/24 [facility] Comment on above: New Internal Referral from Facundo Taylor APRN.SENIOR TECHNICAL ARCHITECT for PVD (Numbness of right foot, Type 1 diabetes mellitus with diabetic polyneuropathy) - PVR 12/19/24 Start: 02-27-2025 End: 02-27-2025 Patient encounter procedure [facility] [place] Comment on above: est care Start: 02-26-2025 End: 02-26-2025 Anticoagulant drug monitoring 02/26/2025 4:30 PM EDT Anticoagulation Visit [facility] [place] [address] [place] [address] Wstr, [facility] [address] [place] [address] inr [facility] [place] Comment on above: inr Start: 02-09-2025 Diabetes: Estimated Glomerular Filtration Rate for Kidney [facility] Diabetes: Estimated Glomerular Filtration Rate for Kidney [facility] Start: 02-07-2025 End: 02-07-2025 Anticoagulant drug monitoring 02/07/2025 4:30 PM EDT Anticoagulation Visit [facility] [address] [place] [address] Wstr, [facility] [address] [place] [address] inr [facility] [place] Comment on above: inr Start: 02-06-2025 Thyroid stimulating hormone measurement TSH Level [facility] Start: 02-05-2025 Hemoglobin A1c measurement Diabetes: Hemoglobin A1C [facility] Start: 01-30-2025 End: 01-30-2025 Patient encounter procedure Radiology Comment on above: MANJULA XR RIGHT ARM PAIN Dr kuldeep Garg shoulder. Start: 01-24-2025 End: 01-24-2025 Patient encounter procedure 01/24/2025 1:40 PM EDT Office Visit [facility] [address] [place] [phone] Robyn Taylor APRN.SENIOR TECHNICAL ARCHITECT [address] [place] [address] INR follow up CXR and labs. [facility] Comment on above: INR follow up CXR and labs. Start: 01-23-2025 End: 01-23-2025 Anticoagulant drug monitoring 01/23/2025 4:30 PM EDT Anticoagulation Visit [facility] [place] [address] [place] [address] Wstr, Anticoag [facility] [address] [place] [address] inr [facility] Comment on above: inr Start: 01-18-2025 End: 01-18-2025 Patient encounter procedure 01/18/2025 9:45 AM EDT Office Visit [facility] [address] [place] [phone] Erin Morris MD [address] [place] [phone] [facility] Start: 01-17-2025 End: 01-17-2025 Anticoagulant drug monitoring 01/17/2025 12:00 PM EDT Anticoagulation Visit [facility] [place] [address] [place] [address] Wstr, Anticoag [facility] [address] [place] [address] New pt INR [facility] Comment on above: New pt INR Start: 01-16-2025 End: 04-17-2025 25-hydroxyvitamin D3 [Mass/volume] in Serum or Plasma VITAMIN D 25 HYDROXY Lab Routine Vitamin D deficiency Expected: 01/16/2025 (Approximate), Expires: 04/17/2025 [facility] Comment on above: Expected: 01/16/2025 (Approximate), Expi res: 04/17/2025 Start: 01-16-2025 End: 04-17-2025 CBC W Auto Differential panel - Blood COMPLETE BLOOD COUNT AND DIFFERENTIAL Lab Routine Nonrheumatic aortic valve stenosis S/P AVR (aortic valve replacement) Chronic anemia Expected: 01/16/2025 (Approximate), Expires: 04/17/2025 [facility] Comment on above: Expected: 01/16/2025 (Approximate), Expi res: 04/17/2025 Start: 01-16-2025 End: 04-17-2025 Comprehensive metabolic 2000 panel - Serum or Plasma COMPREHENSIVE METABOLIC PANEL Lab Routine Nonrheumatic aortic valve stenosis S/P AVR (aortic valve replacement) Expected: 01/16/2025 (Approximate), Expires: 04/17/2025 [facility] Comment on above: Expected: 01/16/2025 (Approximate), Expi res: 04/17/2025 Start: 01-16-2025 End: 07-09-2025 Ferritin [Mass/volume] in Serum or Plasma FERRITIN Lab Routine Chronic anemia Expected: 01/16/2025, Expires: 07/09/2025 [facility] Comment on above: Expected: 01/16/2025, Expires: Start: 01-16-2025 End: 04-17-2025 Hemoglobin A1c in Blood HEMOGLOBIN A1C Lab Routine Type 1 diabetes mellitus with diabetic polyneuropathy (HCC) Expected: 01/16/2025 (Approximate), Expires: 04/17/2025 [facility] Comment on above: Expected: 01/16/2025 (Approximate), Expi res: 04/17/2025 Start: 01-16-2025 End: 07-09-2025 Iron and Iron binding capacity panel - Serum or Plasma IRON AND TIBC Lab Routine Chronic anemia Expected: 01/16/2025, Expires: 07/09/2025 [facility] Comment on above: Expected: 01/16/2025, Expires: Start: 01-16-2025 End: 04-17-2025 Lipid 1996 panel - Serum or Plasma LIPID PANEL, FASTING Lab Routine Type 1 diabetes mellitus with diabetic polyneuropathy (HCC) Dyslipidemia Expected: 01/16/2025 (Approximate), Expires: 04/17/2025 [facility] Comment on above: Expected: 01/16/2025 (Approximate), Expi res: 04/17/2025 Start: 01-16-2025 End: 04-17-2025 Microalbumin/Creatinine [Mass Ratio] in Urine ALBUMIN/CREATININE RATIO, URINE Lab Routine Type 1 diabetes mellitus with diabetic polyneuropathy (HCC) Expected: 01/16/2025, Expires: 04/17/2025 [facility] Comment on above: Expected: 01/16/2025, Expires: Start: 01-16-2025 End: 04-17-2025 PT panel - Platelet poor plasma by Coagulation assay PROTHROMBIN TIME Lab Routine long term current use of anticoagulant therapy Expected: 01/16/2025, Expires: 04/17/2025 [facility] Comment on above: Expected: 01/16/2025, Expires: Start: 01-16-2025 End: 04-17-2025 Thyrotropin [Units/volume] in Serum or Plasma THYROID STIMULATING HORMONE Lab Routine Acquired hypothyroidism Expected: 01/16/2025 (Approximate), Expires: 04/17/2025 [facility] Comment on above: Expected: 01/16/2025 (Approximate), Expi res: 04/17/2025 Start: 01-16-2025 End: 04-17-2025 Thyroxine (T4) free [Mass/volume] in Serum or Plasma T4 FREE/FREE THYROXINE Lab Routine Acquired hypothyroidism Expected: 01/16/2025 (Approximate), Expires: 04/17/2025 [facility] Comment on above: Expected: 01/16/2025 (Approximate), Expi res: 04/17/2025 Start: 01-16-2025 End: 02-09-2026 XR Chest PA and Lateral XR CHEST 2V FRONTAL/LAT Radiology Routine Pleural effusion on right Expected: 01/16/2025 (Approximate), Expires: 02/09/2026 [facility] Comment on above: Expected: 01/16/2025 (Approximate), Expi res: 02/09/2026 Start: 01-09-2025 End: 01-09-2025 Patient encounter procedure Radiology Comment on above: SHOUDLER XR RIGHT ARM PAIN Start: 01-08-2025 End: 01-08-2025 Follow-up encounter 01/08/2025 9:45 AM EDT Procedure Cardiology [address] [phone] Surgery follow up Cardiology Comment on above: Surgery follow up Start: 01-08-2025 End: 01-08-2025 ambulatory 01/08/2025 9:30 AM EDT Results Only [address] [place] [address] [phone] cbc, cmp, ptinr [facility] Comment on above: cbc, cmp, ptinr Start: 01-08-2025 End: 01-08-2025 Patient encounter procedure Radiology Comment on above: Surgery follow up Surgery Discharge J Start: 12-31-2024 End: 04-01-2025 CBC panel - Blood by Automated count COMPLETE BLOOD COUNT Lab Routine Surgery follow-up Expected: 12/31/2024, Expires: 04/01/2025 [facility] Work Phone: Comment on above: Expected: 12/31/2024, Expires: Start: 12-31-2024 End: 04-01-2025 Comprehensive metabolic 2000 panel - Serum or Plasma COMPREHENSIVE METABOLIC PANEL Lab Routine Surgery follow-up Expected: 12/31/2024, Expires: 04/01/2025 [facility] Comment on above: Expected: 12/31/2024, Expires: Start: 12-31-2024 End: 04-01-2025 PT panel - Platelet poor plasma by Coagulation assay PROTHROMBIN TIME Lab Routine Surgery follow-up Expected: 12/31/2024, Expires: 04/01/2025 [facility] Comment on above: Expected: 12/31/2024, Expires: Start: 12-25-2024 End: 12-25-2024 Admission to same day surgery center Admitting Comment on above: Redox3:AVR (3) Redox3: AVR- mechani prince, +/-Root, +/-CABG (3) Start: 12-25-2024 End: 12-25-2024 Anesthesia consultation Admitting Start: 12-25-2024 Subsequent hospital visit by physician Admitting Comment on above: Type 1 diabetes mellitus without complic ation (HCC) [E10.9], Acquired hypothyroidism [E03.9], Pre-operative cardiovascular examination [Z01.810], Aortic valve disorder [I35.9] Start: 12-25-2024 End: 12-25-2024 Rplcmt prost aortic valve open xcp homogrf/stent [facility] CT & VAS Start: 12-24-2024 End: 12-24-2024 Admission to same day surgery center [facility] Office Administrator Comment on above: CORONARY ANGIO W CATH PLACE W IMAGE INJE CT & INTERP W LT HEART CATH W INJECT LT VENTRGRAPHY Start: 12-24-2024 End: 12-24-2024 Cath plmt l hrt & arts w/njx & angio img s&i [facility] Start: 12-24-2024 Subsequent hospital visit by physician [facility] Office Administrator Comment on above: Aortic valve disorder [I35.9] Start: 12-24-2024 End: 12-24-2024 ambulatory Cardiology Comment on above: LEFT Start: 12-24-2024 End: 12-24-2024 Patient encounter procedure 12/24/2024 7:00 AM EDT Office Visit Admitting [address] [place] [address] ADMIT Admitting Comment on above: ADMIT Start: 12-21-2024 End: 12-21-2024 Patient encounter procedure 12/21/2024 10:00 AM EDT Office Visit Dentistry [address] [place] [id number] Bernabe Meeks, DMD [address] [place], [place] [phone] [facility] EXT# [phone],12,[phone],29,30 *Any provider first available* Dentistry Comment on above: [facility] EXT# 3,12,19,29,30 *Any provider fir st available* Start: 12-20-2024 End: 12-20-2024 Patient encounter procedure 12/20/2024 1:30 PM EDT Office Visit Cardiothoracic [address] [place] [address] [facility] Comment on above: [facility] Start: 12-20-2024 End: 12-20-2024 Patient encounter procedure 12/20/2024 12:20 PM EDT Office Visit Cardiothoracic [address] [phone] [facility] Comment on above: [facility] Start: 12-20-2024 End: 12-20-2024 Patient encounter procedure Cardiology Comment on above: Acquired hypothyroidism [E03.9] [facility] Start: 12-19-2024 End: 12-19-2024 Patient encounter procedure 12/19/2024 11:45 AM EDT Appointment Radiology [address] [place] [address] Acquired hypothyroidism [E03.9] Radiology Comment on above: Acquired hypothyroidism [E03.9] Start: 12-19-2024 End: 12-19-2024 ambulatory Cardiology Comment on above: Acquired hypothyroidism [E03.9] Start: 12-19-2024 End: 12-19-2024 Patient encounter procedure Pulmonary Medicine Comment on above: OHS CLEARANCE Type 1 diabetes jalil itus without complication (HCC) [E10.9] Acquired hypothyroid ism [E03.9] Start: 12-06-2024 Diabetes: Urine Albumin-Creatinine Ratio for Kidney [facility] Diabetes: Urine Albumin-Creatinine Ratio for Kidney [facility] Start: 12-06-2024 Hepatitis B screening Urine Albumin:Creatinine Ratio [facility] Start: 12-06-2024 Hepatitis B surface antibody level LDL Cholesterol [facility] Start: 12-06-2024 Lipid panel Lipid Panel [facility] Start: 11-23-2024 Annual PCP Team Chronic Disease Visit Annual PCP Team Chronic Disease Visit [facility] Start: 11-22-2024 End: 11-22-2024 Patient encounter procedure Cardiology Comment on above: Aortic valve disorder [I35.9] Follow Up Start: 11-20-2024 End: 11-20-2024 Patient encounter procedure 11/20/2024 2:30 PM EDT Office Visit Cardiology [address] [phone] EVAL AV Cardiology Comment on above: EVAL AV Start: 11-20-2024 End: 11-20-2024 Patient encounter procedure Radiology Comment on above: Aortic valve disorder [I35.9] PLEASE LEAVE IV FOR [facility] Start: 11-20-2024 End: 11-20-2024 Patient encounter procedure Cardiology Comment on above: Aortic valve disorder [I35.9] Aortic valve disorde r Start: 09-07-2024 End: 09-07-2024 Patient encounter procedure 09/07/2024 1:30 PM EST [facility] [address] [place] [phone] Erin Morris MD [address] [place] [address] [facility] Start: 05-15-2024 End: 05-14-2026 US Heart Transthoracic Transthoracic echocardiogram (TTE) complete with contrast, bubble, strain, and 3D PRN CV Echocardiography Routine Subvalvar aortic stenosis Subaortic membrane S/P AVR (aortic valve replacement) Expected: 05/15/2024 (Approximate), Expires: 05/14/2026 [facility] [employer] Work Phone: Comment on above: Expected: 05/15/2024 (Approximate), Expi res: 05/14/2026 Start: 05-08-2024 Hemoglobin A1c measurement HbA1C [facility] Start: 2024 Screening for malignant neoplasm of colon [facility] Start: 03-11-2024 COVID-19 Vaccine ( season) COVID-19 Vaccine () [facility] [employer] Start: 03-11-2024 Influenza vaccination [facility] Start: 03-08-2024 Hemoglobin A1c measurement HbA1C [facility] Start: 03-05-2024 End: 03-05-2024 Patient encounter procedure 03/05/2024 8:00 AM EDT Office Visit [facility] [address] [place] [phone] Sruthi Ambrosio, LUMBER HACKER.SENIOR TECHNICAL ARCHITECT [address] [place], [place] [id number] 3 month follow up [facility] Comment on above: 3 month follow up Start: 03-04-2024 End: 06-03-2024 Thyrotropin [Units/volume] in Serum or Plasma THYROID STIMULATING HORMONE Lab Routine Acquired hypothyroidism Expected: 03/04/2024, Expires: 06/03/2024 [facility] Work Phone: Comment on above: Expected: 03/04/2024, Expires: Start: 03-04-2024 End: 06-03-2024 Thyroxine (T4) free [Mass/volume] in Serum or Plasma T4 FREE/FREE THYROXINE Lab Routine Acquired hypothyroidism Expected: 03/04/2024, Expires: 06/03/2024 [facility] Comment on above: Expected: 03/04/2024, Expires: Start: 03-04-2024 End: 06-03-2024 Triiodothyronine (T3) [Mass/volume] in Serum or Plasma T3 Lab Routine Acquired hypothyroidism Expected: 03/04/2024, Expires: 06/03/2024 [facility] Comment on above: Expected: 03/04/2024, Expires: Start: 01-22-2024 3 comp foot exam completed DIABETIC FOOT EXAM [facility] Start: 01-22-2024 Diabetic foot examination Diabetic Foot Exam [facility] Start: 01-22-2024 Hemoglobin A1c measurement Diabetes: Hemoglobin A1C [facility] Start: 01-08-2024 ANNUAL PCP TEAM CHRONIC DISEASE VISIT ANNUAL PCP TEAM CHRONIC DISEASE VISIT [facility] Start: 12-29-2023 ANNUAL PCP TEAM CHRONIC DISEASE VISIT ANNUAL PCP TEAM CHRONIC DISEASE VISIT [facility] Start: 12-03-2023 ANNUAL PCP TEAM CHRONIC DISEASE VISIT ANNUAL PCP TEAM CHRONIC DISEASE VISIT [facility] Start: 12-02-2023 End: 12-02-2023 Patient encounter procedure 12/02/2023 11:30 AM EDT Office Visit [facility] Cardiology [address] [place] [address] [address] [place] [address] Luz Maria Peerz MD [address] [facility], [address] [place] [address] [facility] Start: 11-24-2023 End: 02-23-2024 25-hydroxyvitamin D3 [Mass/volume] in Serum or Plasma VITAMIN D 25 HYDROXY Lab Routine Vitamin D deficiency Expected: 11/24/2023, Expires: 02/23/2024 [facility] Comment on above: Expected: 11/24/2023, Expires: Start: 11-24-2023 End: 02-23-2024 CBC W Auto Differential panel - Blood COMPLETE BLOOD COUNT AND DIFFERENTIAL Lab Routine Simple chronic bronchitis (HCC) Expected: 11/24/2023, Expires: 02/23/2024 [facility] Work Phone: Comment on above: Expected: 11/24/2023, Expires: Start: 11-24-2023 End: 02-23-2024 Comprehensive metabolic 2000 panel - Serum or Plasma COMPREHENSIVE METABOLIC PANEL Lab Routine Type 1 diabetes mellitus with diabetic polyneuropathy (HCC) Expected: 11/24/2023, Expires: 02/23/2024 [facility] Comment on above: Expected: 11/24/2023, Expires: Start: 11-24-2023 End: 02-23-2024 Hemoglobin A1c in Blood HEMOGLOBIN A1C Lab Routine Type 1 diabetes mellitus with diabetic polyneuropathy (HCC) Expected: 11/24/2023, Expires: 02/23/2024 [facility] Comment on above: Expected: 11/24/2023, Expires: Start: 11-24-2023 End: 02-23-2024 LIPID PANEL, NONFASTING LIPID PANEL, NONFASTING Lab Routine Type 1 diabetes mellitus with diabetic polyneuropathy (HCC) Expected: 11/24/2023, Expires: 02/23/2024 [facility] Comment on above: Expected: 11/24/2023, Expires: Start: 11-24-2023 End: 02-23-2024 Microalbumin/Creatinine [Mass Ratio] in Urine ALBUMIN/CREATININE RATIO, URINE Lab Routine Type 1 diabetes mellitus with diabetic polyneuropathy (HCC) Expected: 11/24/2023, Expires: 02/23/2024 [facility] Comment on above: Expected: 11/24/2023, Expires: Start: 11-24-2023 End: 02-23-2024 PSA/PROSTATE SPECIFIC ANTIGEN SCREENING PSA/PROSTATE SPECIFIC ANTIGEN SCREENING Lab Routine Screening for prostate cancer Expected: 11/24/2023, Expires: 02/23/2024 [facility] Comment on above: Expected: 11/24/2023, Expires: Start: 11-24-2023 End: 02-23-2024 Thyrotropin [Units/volume] in Serum or Plasma THYROID STIMULATING HORMONE Lab Routine Acquired hypothyroidism Expected: 11/24/2023, Expires: 02/23/2024 [facility] Comment on above: Expected: 11/24/2023, Expires: Start: 11-24-2023 End: 02-23-2024 Thyroxine (T4) free [Mass/volume] in Serum or Plasma T4 FREE/FREE THYROXINE Lab Routine Acquired hypothyroidism Expected: 11/24/2023, Expires: 02/23/2024 [facility] Comment on above: Expected: 11/24/2023, Expires: Start: 11-24-2023 End: 02-23-2024 Triiodothyronine (T3) Free [Mass/volume] in Serum or Plasma T3, FREE Lab Routine Acquired hypothyroidism Expected: 11/24/2023, Expires: 02/23/2024 [facility] Comment on above: Expected: 11/24/2023, Expires: Start: 11-24-2023 End: 11-24-2023 Patient encounter procedure 11/24/2023 8:00 AM EDT Office Visit [facility] [address] [place] [phone] Sruthi Ambrosio, RIC.SENIOR TECHNICAL ARCHITECT [address] [place], [place] [phone] needs refill [facility] Comment on above: needs refill Start: 05-06-2023 End: 05-06-2023 Patient encounter procedure 05/06/2023 Office Visit Cardiology Luz Maria Perez MD [address] [place] [address] [address], [address] [place] [address] [facility] Start: 04-23-2023 Hemoglobin A1c measurement HbA1C [facility] Start: 04-23-2023 Hemoglobin A1c/Hemoglobin.total in Blood HBA1C [facility] Start: 03-26-2023 DTaP/Tdap/Td vaccine (2 - Td) DTaP/Tdap/Td vaccine (2 - Td) [place], [place] Start: 03-11-2023 Influenza vaccination [facility] Start: 02-16-2023 Thyroid stimulating hormone measurement TSH Level [facility] Start: 12-31-2022 Hepatitis B surface antibody level LDL CHOLESTEROL [facility] Start: 11-29-2022 Hemoglobin A1c/Hemoglobin.total in Blood HBA1C [facility] Start: 11-22-2022 Hemoglobin A1c measurement Diabetes: Hemoglobin A1C [facility] Start: 11-22-2022 Hemoglobin A1c/Hemoglobin.total in Blood HBA1C [facility] Start: 10-19-2022 Hemoglobin A1c/Hemoglobin.total in Blood HBA1C [facility] Start: 09-06-2022 End: 09-06-2022 Patient encounter procedure 09/06/2022 Office Visit Endocrinology Omayra Mitchell MD [address] [place] [address] [address] [place] [address] Endocrinology [facility] Start: 09-01-2022 Hemoglobin A1c measurement Diabetes: Hemoglobin A1C [facility] Start: 07-27-2022 End: 07-27-2022 Patient encounter procedure 07/27/2022 Office Visit Cardiology Luz Maria Perez MD [address] [facility], [address] [place] [address] [facility] Cardiology Start: 07-25-2022 Hemoglobin A1c/Hemoglobin.total in Blood HBA1C [facility] Start: 07-21-2022 End: 09-20-2022 ALBUMIN/CREAT RATIO RND UR ALBUMIN/CREAT RATIO RND UR Lab Routine Type 1 diabetes mellitus with hyperglycemia (HCC) Expected: 07/21/2022, Expires: 09/20/2022 [facility] Work Phone: Comment on above: Expected: 07/21/2022, Expires: 3 Start: 07-21-2022 End: 09-20-2022 Comprehensive metabolic 2000 panel - Serum or Plasma COMP METABOLIC PANEL Lab Routine Type 1 diabetes mellitus with hyperglycemia (HCC) Expected: 07/21/2022, Expires: 09/20/2022 [facility] Work Phone: Comment on above: Expected: 07/21/2022, Expires: 3 Start: 07-21-2022 End: 09-20-2022 Lipid 1996 panel - Serum or Plasma LIPID PANEL BASIC Lab Routine Type 1 diabetes mellitus with hyperglycemia (HCC) Expected: 07/21/2022, Expires: 09/20/2022 [facility] Work Phone: Comment on above: Expected: 07/21/2022, Expires: 3 Start: 07-21-2022 End: 09-20-2022 Thyrotropin [Units/volume] in Serum or Plasma TSH BLD Lab Routine Type 1 diabetes mellitus with hyperglycemia (HCC) Expected: 07/21/2022, Expires: 09/20/2022 [facility] Work Phone: Comment on above: Expected: 07/21/2022, Expires: 3 Start: 07-21-2022 End: 09-20-2022 Thyroxine (T4) free [Mass/volume] in Serum or Plasma T4 FREE/FREE THYROX Lab Routine Type 1 diabetes mellitus with hyperglycemia (HCC) Expected: 07/21/2022, Expires: 09/20/2022 [facility] Work Phone: Comment on above: Expected: 07/21/2022, Expires: 3 Start: 04-24-2022 Hemoglobin A1c/Hemoglobin.total in Blood HBA1C [facility] Start: 04-03-2022 End: 06-03-2022 aPTT in Platelet poor plasma by Coagulation assay ACTIVATED PTT Lab Routine Subaortic membrane Diabetes mellitus type 1, controlled, without complications (HCC) Hypothyroidism, unspecified type Pre-operative cardiovascular examination Expected: 04/03/2022, Expires: 06/03/2022 [facility] Work Phone: Comment on above: Expected: 04/03/2022, Expires: 2 Start: 04-03-2022 End: 06-03-2022 CBC W Auto Differential panel - Blood CBC + DIFF Lab Routine Subaortic membrane Diabetes mellitus type 1, controlled, without complications (HCC) Hypothyroidism, unspecified type Pre-operative cardiovascular examination Expected: 04/03/2022, Expires: 06/03/2022 [facility] Work Phone: Comment on above: Expected: 04/03/2022, Expires: 2 Start: 04-03-2022 End: 06-03-2022 Comprehensive metabolic 2000 panel - Serum or Plasma COMP METABOLIC PANEL Lab Routine Subaortic membrane Diabetes mellitus type 1, controlled, without complications (HCC) Hypothyroidism, unspecified type Pre-operative cardiovascular examination Expected: 04/03/2022, Expires: 06/03/2022 [facility] Work Phone: Comment on above: Expected: 04/03/2022, Expires: 2 Start: 04-03-2022 End: 06-03-2022 Hemoglobin A1c in Blood HGB A1C Lab Routine Subaortic membrane Diabetes mellitus type 1, controlled, without complications (HCC) Hypothyroidism, unspecified type Pre-operative cardiovascular examination Expected: 04/03/2022, Expires: 06/03/2022 [facility] Work Phone: Comment on above: Expected: 04/03/2022, Expires: 2 Start: 04-03-2022 End: 06-03-2022 Lactate dehydrogenase [Enzymatic activity/volume] in Serum or Plasma LD LACTATE DEHYDRO Lab Routine Subaortic membrane Diabetes mellitus type 1, controlled, without complications (HCC) Hypothyroidism, unspecified type Pre-operative cardiovascular examination Expected: 04/03/2022, Expires: 06/03/2022 [facility] Work Phone: Comment on above: Expected: 04/03/2022, Expires: 2 Start: 04-03-2022 End: 06-03-2022 PT panel - Platelet poor plasma by Coagulation assay PROTHROMBIN TIME/PT Lab Routine Subaortic membrane Diabetes mellitus type 1, controlled, without complications (HCC) Hypothyroidism, unspecified type Pre-operative cardiovascular examination Expected: 04/03/2022, Expires: 06/03/2022 [facility] Work Phone: Comment on above: Expected: 04/03/2022, Expires: 2 Start: 04-03-2022 End: 06-03-2022 Thyrotropin [Units/volume] in Serum or Plasma TSH BLD Lab Routine Subaortic membrane Diabetes mellitus type 1, controlled, without complications (HCC) Hypothyroidism, unspecified type Pre-operative cardiovascular examination Expected: 04/03/2022, Expires: 06/03/2022 [facility] Work Phone: Comment on above: Expected: 04/03/2022, Expires: 2 Start: 04-03-2022 End: 06-03-2022 TYPE AND SCREEN,30 DAY TYPE AND SCREEN,30 DAY Blood Bank Routine Subaortic membrane Diabetes mellitus type 1, controlled, without complications (HCC) Hypothyroidism, unspecified type Pre-operative cardiovascular examination Expected: 04/03/2022, Expires: 06/03/2022 [facility] Work Phone: Comment on above: Expected: 04/03/2022, Expires: 2 Start: 04-03-2022 End: 06-03-2022 URINALYSIS, DIPSTICK ONLY URINALYSIS, DIPSTICK ONLY Lab Routine Subaortic membrane Diabetes mellitus type 1, controlled, without complications (HCC) Hypothyroidism, unspecified type Pre-operative cardiovascular examination Expected: 04/03/2022, Expires: 06/03/2022 [facility] Work Phone: Comment on above: Expected: 04/03/2022, Expires: 2 Start: 03-11-2022 Influenza vaccination [facility] Start: 02-17-2022 End: 04-19-2022 CBC panel - Blood by Automated count CBC Lab Routine Wound infection after surgery Expected: 02/17/2022, Expires: 04/19/2022 [facility] Work Phone: Comment on above: Expected: 02/17/2022, Expires: 2 Start: 02-17-2022 End: 04-19-2022 Comprehensive metabolic 2000 panel - Serum or Plasma COMP METABOLIC PANEL Lab Routine Wound infection after surgery Expected: 02/17/2022, Expires: 04/19/2022 [facility] Work Phone: Comment on above: Expected: 02/17/2022, Expires: 2 Start: 02-17-2022 End: 03-17-2023 Ct thorax w/o contrast material CT CHEST WO IVCON Radiology Routine Localized swelling, mass and lump, trunk S/P AVR (aortic valve replacement) S/P TVR (tricuspid valve repair) Wound infection after surgery Expected: 02/17/2022, Expires: 03/17/2023 [facility] Work Phone: Comment on above: Expected: 02/17/2022, Expires: 3 Start: 02-05-2022 End: 04-07-2022 CBC W Auto Differential panel - Blood CBC + DIFF Lab Routine Subaortic membrane Shortness of breath Aortic valve disorder Expected: 02/05/2022, Expires: 04/07/2022 [facility] Work Phone: Comment on above: Expected: 02/05/2022, Expires: 2 Start: 02-05-2022 End: 04-07-2022 Comprehensive metabolic 2000 panel - Serum or Plasma COMP METABOLIC PANEL Lab Routine Subaortic membrane Shortness of breath Aortic valve disorder Expected: 02/05/2022, Expires: 04/07/2022 [facility] Work Phone: Comment on above: Expected: 02/05/2022, Expires: 2 Start: 01-29-2022 End: 03-31-2022 Basic metabolic 2000 panel - Serum or Plasma BASIC METABOLIC PNL Lab Routine Atelectasis Nonrheumatic mitral valve regurgitation Expected: 01/29/2022, Expires: 03/31/2022 [facility] Work Phone: Comment on above: Expected: 01/29/2022, Expires: 2 Start: 01-29-2022 End: 03-31-2022 CBC panel - Blood by Automated count CBC Lab Routine Atelectasis Nonrheumatic mitral valve regurgitation Expected: 01/29/2022, Expires: 03/31/2022 [facility] Work Phone: Comment on above: Expected: 01/29/2022, Expires: 2 Start: 01-29-2022 End: 03-31-2022 Lipid 1996 panel - Serum or Plasma LIPID PANEL BASIC Lab Routine Atelectasis Nonrheumatic mitral valve regurgitation Expected: 01/29/2022, Expires: 03/31/2022 [facility] Work Phone: Comment on above: Expected: 01/29/2022, Expires: 2 Start: 01-20-2022 Thyroid stimulating hormone measurement TSH [facility] Start: 01-20-2022 Urine screening for protein MICROALBUMINURIA [facility] Start: 01-06-2022 Depression screening using PHQ-9 (Patient Health Questionnaire 9) score DEPRESSION SCREENING [facility] Start: 01-01-2022 End: 05-03-2022 SARS-CoV-2 (COVID-19) RNA [Presence] in Respiratory specimen by VAISHALI with probe detection INTERMEDIATE RAPID COVID Microbiology Routine Subaortic membrane Diabetes mellitus type 1, controlled, without complications (HCC) Hypothyroidism, unspecified type Pre-operative cardiovascular examination Expected: 01/01/2022, Expires: 05/03/2022 [facility] Work Phone: Comment on above: Expected: 01/01/2022, Expires: 2 Start: 12-31-2021 End: 01-30-2023 LUNG DIFFUSION CAPACITY (DLCO) LUNG DIFFUSION CAPACITY (DLCO) PFT Routine Ex-smoker Dyspnea, unspecified type Expected: 12/31/2021, Expires: 01/30/2023 [facility] Work Phone: Comment on above: Expected: 12/31/2021, Expires: 3 Start: 12-31-2021 End: 01-30-2023 SPIROMETRY - BASELINE AND POST DILATOR SPIROMETRY - BASELINE AND POST DILATOR PFT Routine Ex-smoker Expected: 12/31/2021, Expires: 01/30/2023 [facility] Work Phone: Comment on above: Expected: 12/31/2021, Expires: 3 Start: 12-18-2021 Lipid panel [facility] Start: 12-18-2021 Renal function test NOS RENAL PROFILE [facility] Start: 12-18-2021 Thyroid stimulating hormone measurement TSH [facility] Start: 12-18-2021 Urine screening for protein MICROALBUMINURIA [facility] Start: 11-27-2021 Depression screening using PHQ-9 (Patient Health Questionnaire 9) score DEPRESSION SCREENING [facility] Start: 10-24-2021 Depression screening using PHQ-9 (Patient Health Questionnaire 9) score DEPRESSION SCREENING [facility] Start: 10-20-2021 Depression screening using PHQ-9 (Patient Health Questionnaire 9) score DEPRESSION SCREENING [facility] Start: 10-06-2021 Diabetic foot examination FOOT EXAM [facility] Start: 07-01-2021 End: 07-01-2021 Patient encounter procedure 07/01/2021 Office Visit Dentistry Grover Mays DDS [address] [place] [address] [facility] Start: 06-30-2021 End: 06-30-2021 Patient encounter procedure 06/30/2021 Office Visit Family Medicine Giovanni Ellis, QAMAR [address] [place] [address] [facility] Start: 05-27-2021 End: 05-27-2021 Patient encounter procedure [facility] Start: 05-25-2021 End: 05-25-2021 Patient encounter procedure 05/25/2021 Office Visit Cardiology Noam Luevano MD [address] [place] [address] [facility] Start: 04-07-2021 COVID-19 VACCINE (3 - Booster for Moderna series) COVID-19 VACCINE (3 - Booster for Moderna series) [facility] Start: 03-24-2021 Hemoglobin A1c measurement HEMOGLOBIN A1C [facility] Start: 03-11-2021 Influenza vaccination Flu vaccine (#1) [facility] Start: 03-11-2021 Influenza vaccination given INFLUENZA VACCINE (#1) [facility] Start: 02-25-2021 End: 02-25-2021 Patient encounter procedure 02/25/2021 Appointment Sleep Medicine Gunnar Saenz MD [address] [facility] [place] [address] [facility] Start: 02-24-2021 End: 02-24-2021 Patient encounter procedure 02/24/2021 Appointment Sleep Medicine Gunnar Saenz MD [address] [place] [address] [facility] Start: 02-19-2021 End: 02-19-2021 Patient encounter procedure 02/19/2021 Office Visit Dentistry Eliza Huang [facility] Start: 02-12-2021 End: 02-12-2021 Patient encounter procedure [facility] Start: 02-11-2021 End: 02-11-2021 Patient encounter procedure 02/11/2021 Office Visit Cardiology Noam Luevano MD [address] [place] [address] [phone] [facility] Start: 02-05-2021 End: 02-05-2021 Patient encounter procedure 02/05/2021 Office Visit Family Medicine Giovanni Ellis, SENIOR TECHNICAL ARCHITECT [address] [place] [address] [phone] [facility] Start: 01-22-2021 End: 01-22-2021 Patient encounter procedure 01/22/2021 Office Visit Pain Medicine Abundio Mercado MD [address] [facility] [place] [address] [phone] [facility] Start: 01-21-2021 End: 01-21-2021 Telemedicine consultation with patient 01/21/2021 Telemedicine Orthopedic Surgery Kaela Fatima PA-C [address] [place] [address] [phone] [facility] Start: 01-20-2021 End: 01-20-2021 Patient encounter procedure 01/20/2021 Office Visit Dentistry Grover Mays DDS [address] [place] [address] [phone] [facility] Start: 01-19-2021 End: 01-19-2021 Patient encounter procedure 01/19/2021 Office Visit Endocrinology Jessee Carrasco MD [address] [address] [phone] [facility] Start: 01-06-2021 End: 01-06-2021 Patient encounter procedure 01/06/2021 Office Visit Family Medicine Giovanni Ellis, QAMAR [address] [place] [address] [phone] [facility] Start: 12-31-2020 COVID-19 VACCINE (3 - Booster for Moderna series) COVID-19 VACCINE (3 - Booster for Moderna series) [facility] Start: 12-31-2020 COVID-19 Vaccine (3 - Moderna series) COVID-19 Vaccine (3 - Moderna series) [facility] Start: 12-26-2020 Hemoglobin A1c measurement HEMOGLOBIN A1C [facility] Start: 12-23-2020 End: 12-23-2020 Patient encounter procedure 12/23/2020 Office Visit Orthopedic Surgery Kaela Fatima PA-C [address] [place] [address] [phone] [facility] Start: 12-22-2020 End: 12-22-2020 Patient encounter procedure 12/22/2020 Office Visit Dentistry Grover Mays DDS [address] [place] [address] [phone] [facility] Start: 12-11-2020 End: 12-11-2020 Patient encounter procedure 12/11/2020 Office Visit Otolaryngology Gunnar Saenz MD [address] [place] [address] [phone] [facility] Start: 12-04-2020 End: 12-04-2020 Patient encounter procedure 12/04/2020 Office Visit Dentistry Eliza Huang [place] [facility] Start: 11-19-2020 End: 11-19-2020 Patient encounter procedure 11/19/2020 Office Visit Cardiology Noam Luevano MD [address] [place] [address] [phone] [facility] Start: 11-06-2020 End: 11-06-2020 Patient encounter procedure 11/06/2020 Office Visit Family Medicine Giovanni Ellis, SENIOR TECHNICAL ARCHITECT [address] [place] [address] [phone] [facility] Start: 11-05-2020 End: 11-05-2020 ambulatory 11/05/2020 Immunization Family Medicine [facility] Start: 10-30-2020 End: 10-30-2020 Patient encounter procedure 10/30/2020 Office Visit Grover Hollingsworth DDS [address] [place] [address] [phone] [facility] Start: 08-08-2020 [object Object] Diabetic foot exam [place] Start: 08-08-2020 A1C test (Diabetic or Prediabetic) A1C test (Diabetic or Prediabetic) [place] Start: 08-08-2020 Diabetic foot examination Diabetic foot exam [facility] Start: 08-08-2020 Hemoglobin A1c measurement A1C test (Diabetic or Prediabetic) [facility] Start: 06-18-2020 Thyroid stimulating hormone measurement TSH testing [facility] Start: 06-18-2020 TSH testing TSH testing [place] Start: 04-04-2020 ANNUAL PCP TEAM CHRONIC DISEASE VISIT ANNUAL PCP TEAM CHRONIC DISEASE VISIT [facility] Start: 04-04-2020 PNEUMOCOCCAL (2 - PPSV23 or PCV20) PNEUMOCOCCAL (2 - PPSV23 or PCV20) [facility] Start: 03-11-2020 Influenza vaccination given INFLUENZA VACCINE (#1) [facility] Start: 12-18-2019 End: 12-18-2019 Office Visit 12/18/2019 Office Visit Family Medicine Daria Stephenson MD [address] [place] [id number] [phone] [facility] Start: 12-12-2019 A1C test (Diabetic or Prediabetic) A1C test (Diabetic or Prediabetic) [place] Start: 12-12-2019 TSH testing T[place] Start: 05-20-2019 Diabetic microalbuminuria test Diabetic microalbuminuria test [place] Start: 05-20-2019 Hepatitis B screening URINE ALBUMIN:CREATININE RATIO [facility] Start: 05-20-2019 Lipid panel Lipid screen [facility] Start: 05-20-2019 Lipid screen Lipid screen [place] Start: 05-20-2019 Urine screening for protein Diabetic microalbuminuria test [facility] Start: 03-11-2019 Influenza vaccination Flu vaccine (#1) [place] Start: 07-24-2014 3 comp foot exam completed DIABETIC FOOT EXAM [facility] Start: 06-18-2014 Glaucoma screening Dilated Retinal Exam [facility] Start: 06-18-2014 Hepatitis C antibody, confirmatory test DILATED RETINAL EXAM [facility] Start: 2014 Fasting lipid profile LIPID SCREENING [facility] Start: 06-28-2011 HEPATITIS B (2 of 3 - Risk 3-dose series) [facility] Start: 06-28-2011 Hepatitis B vaccination HEPATITIS B VACCINE (ADULT) (2 of 3 - Risk 3-dose series) [facility] Start: 06-28-2011 Hepatitis B Vaccines (2 of 3 - 19+ 3-dose series) Hepatitis B Vaccines (2 of 3 - 19+ 3-dose series) [facility] Start: 06-28-2011 Hepatitis B Vaccines (2 of 3 - 3-dose series) Hepatitis B Vaccines (2 of 3 - 3-dose series) [facility] Start: 2006 HPV Vaccine (1 - 3-dose SCDM series) HPV Vaccine (1 - 3-dose SCDM series) [facility] Start: 1998 Hepatitis A Vaccines (1 of 2 - Risk 2-dose series) Hepatitis A Vaccines (1 of 2 - Risk 2-dose series) [facility] Start: 1998 HEPATITIS B (1 of 3 - Risk 3-dose series) HEPATITIS B (1 of 3 - Risk 3-dose series) [facility] Start: 1998 Hepatitis B vaccination HEPATITIS B VACCINE (ADULT) (1 of 3 - Risk 3-dose series) [facility] Start: 1998 Hepatitis B Vaccine (1 of 3 - Risk 3-dose series) Hepatitis B Vaccine (1 of 3 - Risk 3-dose series) [facility] Start: 1998 Urine screening for protein Diabetes: Urine Protein Screening [facility] Start: 1997 ANNUAL PCP TEAM CHRONIC DISEASE VISIT ANNUAL PCP TEAM CHRONIC DISEASE VISIT [facility] Start: 1997 ANNUAL WELLNESS VISIT ANNUAL WELLNESS VISIT [facility] Start: 1997 Diabetic retinal exam Diabetic retinal exam [facility] Start: 1997 Hepatitis B surface antibody level LDL CHOLESTEROL [facility] Start: 1997 HEPATITIS C SCREENING HEPATITIS C SCREENING [facility] Start: 1997 Hepatitis C screening Hepatitis C Screening [facility] Start: 1997 HIV SCREENING HIV SCREENING [facility] Start: 1991 Depression Monitoring Depression Monitoring [facility] Start: 1991 Depresssion Monitoring Depresssion Monitoring [facility] Start: 1990 Diphtheria + pertussis + tetanus vaccine (product) DTAP/TDAP/TD VACCINE (1 - Tdap) [facility] Start: 1989 [object Object] Diabetic foot exam [place] Start: 1989 Diabetic foot examination Diabetes: Foot Exam [facility] Start: 1989 Diabetic retinal exam Diabetic retinal exam [place], [place] Start: 1989 Glaucoma screening Diabetes: Retinopathy Screening [facility] Start: 1989 Preventive dental service Diabetes: Dental Exam [facility] Start: 1984 COVID-19 Vaccine (1) COVID-19 Vaccine (1) [facility] Start: 1984 Hemoglobin A1c/Hemoglobin.total in Blood HBA1C [facility] Start: 1980 Hepatitis A Vaccines (1 of 2 - Risk 2-dose series) Hepatitis A Vaccines (1 of 2 - Risk 2-dose series) [facility] Start: 1980 Thyroid stimulating hormone measurement TSH [facility] Start: 1979 COVID-19 Vaccine (#1) COVID-19 Vaccine (#1) [facility] Start: 1979 Cyanocobalamin vitamin b-12 Vitamin B-12 [facility] Start: 1979 Diabetes: Celiac Disease Screening Diabetes: Celiac Disease Screening [facility] Start: 1979 Hepatitis C screening Hepatitis C screen [facility] Start: 1979 HIV screening HIV Screening [facility] Start: 1979 Lipid panel [facility] Start: 1979 Ophthalmic examination and evaluation OPHTHALMOLOGY EXAM [facility] Start: 1979 Renal function test NOS RENAL PROFILE [facility] Start: 1979 Screening for malignant neoplasm of colon [facility] Start: 1979 Urine screening for protein MICROALBUMINURIA [facility] 3 EXTRACTION, ERUPTE D TOOTH REQUIRING REMOVAL OF BONE AND/OR SECTIONING OF TOOTH, AND INCLUDING ELEVATION OF MUCOPERIOSTE [facility] Work Phone: Comment on above: 1 Occurrences starting 11/30/2024 Bacteria identified in Wound by Culture WOUND CULTURE AND GRAM STAIN Microbiology Routine Wound drainage 02/09/2022 4:14 PM EDT [facility] Work Phone: Bacteria identified in Wound by Culture WOUND CULTURE AND GRAM STAIN Microbiology Routine Wound disruption, post-op, skin, initial encounter 02/17/2022 3:46 PM EDT [facility] Work Phone: Cardiac mri for [facility] flow mapping MRI CARDIAC VELOCITY FLOW MAP Radiology Routine Subaortic membrane Diabetes mellitus type 1, controlled, without complications (HCC) Hypothyroidism, unspecified type Pre-operative cardiovascular examination Ordered: 01/01/2022 [facility] Work Phone: Comment on above: Ordered: 01/01/2022 Cardiac mri w/wo contrast & further seq MRI CARDIAC MORPH FUNC WO/W IVCON Radiology Routine Subaortic membrane Diabetes mellitus type 1, controlled, without complications (HCC) Hypothyroidism, unspecified type Pre-operative cardiovascular examination Ordered: 01/01/2022 [facility] Work Phone: Comment on above: Ordered: 01/01/2022 Ct thorax w/o contra st material CT CHEST CARDIAC WO IVCON Radiology Routine Subaortic membrane Shortness of breath Aortic valve disorder Ordered: 11/06/2021 [facility] Work Phone: Comment on above: Ordered: 11/06/2021 End: 09-16-2025 CTA Chest vessels W contrast IV CTA CHEST (GATED) W IVCON Radiology Routine Aortic valve disorder 1 Occurrences starting 08/17/2024 until 09/16/2025 [facility] Comment on above: 1 Occurrences starting 08/17/2024 until 09/16/2025 CTA Chest vessels W contrast IV CTA CHEST (GATED) W IVCON Radiology Routine Aortic valve disorder 11/20/2024 3:44 PM EDT [facility] Work Phone: End: 11-06-2022 ECG COMPLETE ECG COMPLETE ECG Routine Subaortic membrane Shortness of breath Aortic valve disorder 1 Occurrences starting 11/06/2021 until 11/06/2022 [facility] Work Phone: Comment on above: 1 Occurrences starting 11/06/2021 until 11/06/2022 End: 01-29-2023 ECG COMPLETE ECG COMPLETE ECG Routine Atelectasis Nonrheumatic mitral valve regurgitation 1 Occurrences starting 01/29/2022 until 01/29/2023 [facility] Work Phone: Comment on above: 1 Occurrences starting 01/29/2022 until 01/29/2023 End: 08-24-2025 ECG COMPLETE ECG COMPLETE ECG Routine Aortic valve insufficiency, etiology of cardiac valve disease unspecified Tricuspid valve insufficiency, unspecified etiology Mitral valve insufficiency, unspecified etiology 1 Occurrences starting 08/24/2024 until 08/24/2025 [facility] Work Phone: Comment on above: 1 Occurrences starting 08/24/2024 until 08/24/2025 End: 12-31-2025 ECG COMPLETE ECG COMPLETE ECG Routine Surgery follow-up 1 Occurrences starting 12/31/2024 until 12/31/2025 [facility] Comment on above: 1 Occurrences starting 12/31/2024 until 12/31/2025 End: 01-24-2026 ECG COMPLETE ECG COMPLETE ECG Routine Pleural effusion on right Tachycardia Nonrheumatic aortic valve stenosis S/P AVR (aortic valve replacement) 1 Occurrences starting 01/24/2025 until 01/24/2026 [facility] Comment on above: 1 Occurrences starting 01/24/2025 until 01/24/2026 ECHO TRANSESOPHAGEAL ECHO TRANSE SOPHAGEAL Cardiology Routine Aortic valve disorder Ordered: 08/17/2024 [facility] Comment on above: Ordered: 08/17/2024 Echocardiography ECHO Cardiology Routine Subaortic membrane Shortness of breath Aortic valve disorder Ordered: 11/06/2021 [facility] Work Phone: Comment on above: Ordered: 11/06/2021 End: 01-29-2023 Echocardiography ECHO Cardiology Routine Atelectasis Nonrheumatic mitral valve regurgitation 1 Occurrences starting 01/29/2022 until 01/29/2023 [facility] Work Phone: Comment on above: 1 Occurrences starting 01/29/2022 until 01/29/2023 End: 08-17-2025 Echocardiography ECHO Cardiology Routine Aortic valve disorder 1 Occurrences starting 08/17/2024 until 08/17/2025 [facility] Work Phone: Comment on above: 1 Occurrences starting 08/17/2024 until 08/17/2025 EKG 12 Lead EKG 12 Lead ECG Routine 08/31/2019 12:43 PM [facility] [place] End: 12-18-2020 HCV Quant by NAAT HCV Quant by NAAT Lab Routine Elevated liver enzymes 1 Occurrences starting 12/18/2020 until 12/18/2020 [facility] Comment on above: 1 Occurrences starting 12/18/2020 until 12/18/2020 HCV Quant by NAAT HCV Quant by N AAT Lab Routine Elevated liver enzymes 12/18/2020 2:45 PM EDT [employer] [facility] End: 07-21-2023 Hemoglobin A1c/Hemoglobin.total in Blood HEMOGLOBIN A1C (POC) Lab Routine Type 1 diabetes mellitus with hyperglycemia (HCC) Every 3 months for 4 Occurrences starting 07/21/2022 until 07/21/2023 [facility] Work Phone: Comment on above: Every 3 months for 4 Occurrences startin g 07/21/2022 until 07/21/2023 End: 03-06-2026 INR in Platelet poor plasma by Coagulation assay INR (POC) Lab Routine long-term current use of anticoagulant therapy History of mechanical aortic valve replacement long-term (current) use of anticoagulants 99 Occurrences starting 03/06/2025 until 03/06/2026 [facility] Work Phone: Comment on above: 99 Occurrences starting 03/06/2025 until 03/06/2026 LUNG DIFFUSION CAPAC ITY (DLCO) LUNG DIFFUSION CAPACITY (DLCO) PFT Routine Subaortic membrane Diabetes mellitus type 1, controlled, without complications (HCC) Hypothyroidism, unspecified type Pre-operative cardiovascular examination Ordered: 01/01/2022 [facility] Work Phone: Comment on above: Ordered: 01/01/2022 LUNG DIFFUSION CAPAC ITY (DLCO) LUNG DIFFUSION CAPACITY (DLCO) PFT Routine Type 1 diabetes mellitus without complication (HCC) Acquired hypothyroidism Pre-operative cardiovascular examination Aortic valve disorder 12/19/2024 11:08 AM EDT [facility] End: 01-15-2021 MRI Arthrogram Hip Right With IV Contrast MRI Arthrogram Hip Right With IV Contrast Imaging Routine Chronic right hip pain 1 Occurrences starting 01/15/2021 until 01/15/2021 [facility] Comment on above: 1 Occurrences starting 01/15/2021 until 01/15/2021 MRI Arthrogram Hip R ight With IV Contrast MRI Arthrogram Hip Right With IV Contrast Imaging Routine Chronic right hip pain 01/15/2021 4:06 PM EDT [employer] [facility] Patient Education Coronavirus Di farhad 2019 (COVID-19): Caring for Yourself or Others [facility] Work Phone: Patient referral [facility] Work Phone: Prothrombin time INR FINGERSTICK B/O Lab Routine long-term current use of anticoagulant therapy Ordered: 01/10/2025 [facility] Work Phone: Comment on above: Ordered: 01/10/2025 End: 01-15-2026 PT panel - Platelet poor plasma by Coagulation assay PROTHROMBIN TIME Lab Routine long-term (current) use of anticoagulants 50 Occurrences starting 01/15/2025 until 01/15/2026 [facility] Work Phone: Comment on above: 50 Occurrences starting 01/15/2025 until 01/15/2026 End: 12-06-2022 Radiologic exam chest 2 views XR CHEST 2V FRONTAL/LAT Radiology Routine Subaortic membrane Shortness of breath Aortic valve disorder 1 Occurrences starting 11/06/2021 until 12/06/2022 [facility] Work Phone: Comment on above: 1 Occurrences starting 11/06/2021 until 12/06/2022 SPIROMETRY BASELINE ONLY [facility] Work Phone: Comment on above: Ordered: 01/01/2022 SPIROMETRY BASELINE ONLY SPIROME TRY BASELINE ONLY PFT Routine Type 1 diabetes mellitus without complication (HCC) Acquired hypothyroidism Pre-operative cardiovascular examination Aortic valve disorder 12/19/2024 11:08 AM EDT [facility] Work Phone: STRESS ECHO DOBUTAMINE STRESS EC HO DOBUTAMINE Cardiology Routine Subaortic membrane Shortness of breath Aortic valve disorder Ordered: 11/06/2021 [facility] Work Phone: Comment on above: Ordered: 11/06/2021 End: 01-20-2021 Testosterone Total & Free Male Testosterone Total & Free Male Lab Routine Chronic fatigue 1 Occurrences starting 01/20/2021 until 01/20/2021 [place] [place] [facility] Comment on above: 1 Occurrences starting 01/20/2021 until 01/20/2021 Testosterone Total & Free Male Testosterone Total & Free Male Lab Routine Chronic fatigue 01/20/2021 11:36 PM EDT [employer] [facility] End: 01-20-2021 Thyrotropin [Units/volume] in Serum or Plasma TSH Lab Routine Acquired hypothyroidism 1 Occurrences starting 01/20/2021 until 01/20/2021 [facility] Comment on above: 1 Occurrences starting 01/20/2021 until 01/20/2021 Thyrotropin [Units/volume] in Serum or Plasma TSH Lab Routine Acquired hypothyroidism 01/20/2021 11:36 PM EDT [facility] End: 01-20-2021 Thyroxine (T4) free [Mass/volume] in Serum or Plasma T4, Free Lab Routine Acquired hypothyroidism 1 Occurrences starting 01/20/2021 until 01/20/2021 [facility] Comment on above: 1 Occurrences starting 01/20/2021 until 01/20/2021 Thyroxine (T4) free [Mass/volume] in Serum or Plasma T4, Free Lab Routine Acquired hypothyroidism 01/20/2021 11:36 PM EDT [facility] End: 11-27-2020 Urine culture and sensitivity Urine culture and sensitivity Microbiology Routine Acute cystitis with hematuria 1 Occurrences starting 11/27/2020 until 11/27/2020 [facility] Comment on above: 1 Occurrences starting 11/27/2020 until 11/27/2020 Urine culture and sensitivity [facility] End: 12-01-2020 Urine culture and sensitivity Urine culture and sensitivity Microbiology Routine Acute cystitis with hematuria 1 Occurrences starting 12/01/2020 until 12/01/2020 [facility] Comment on above: 1 Occurrences starting 12/01/2020 until 12/01/2020 End: 12-18-2020 Urine culture and sensitivity Urine culture and sensitivity Microbiology Routine Dysuria 1 Occurrences starting 12/18/2020 until 12/18/2020 [facility] Comment on above: 1 Occurrences starting 12/18/2020 until 12/18/2020 End: 01-30-2026 XR Chest PA and Lateral XR CHEST 2V FRONTAL/LAT Radiology Routine Surgery follow-up 1 Occurrences starting 12/31/2024 until 01/30/2026 [facility] Comment on above: 1 Occurrences starting 12/31/2024 until 01/30/2026 End: 02-23-2026 XR Chest PA and Lateral XR CHEST 2V FRONTAL/LAT Radiology Routine Pleural effusion on right 1 Occurrences starting 01/24/2025 until 02/23/2026 [facility] Work Phone: Comment on above: 1 Occurrences starting 01/24/2025 until 02/23/2026 End: 11-06-2020 XR Hip - right Views XR Hip Right 2 Views Imaging Routine Right hip pain 1 Occurrences starting 11/06/2020 until 11/06/2020 [facility] Comment on above: 1 Occurrences starting 11/06/2020 until 11/06/2020 XR Hip - right Views XR Hip Righ t 2 Views Imaging Routine Right hip pain 11/06/2020 3:19 PM EDT [facility] End: 02-14-2026 XR Shoulder - right 3 Views XR SHOULDER GENERAL 3V OR MORE AP/TRUE AP/OTHER RIGHT Radiology Routine Adhesive capsulitis of right shoulder 1 Occurrences starting 01/16/2025 until 02/14/2026 [facility] Work Phone: Comment on above: 1 Occurrences starting 01/16/2025 until 02/14/2026 [facility] Immunizations Immunization Date Immunization Notes Care Provider [facility] 04-16-2024 influenza, injectabl e, quadrivalent, contains preservative; Translations: [Flucelvax PF Prefilled Syringe ] ROSCOE UMANZOR MD [facility] 04-16-2024 influenza virus vaccine, unspecified formulation Delfina Chaney PA-C Work Phone: [facility] 05-20-2023 Influenza, injectabl e, Madin [place] Canine Kidney, preservative free, quadrivalent ROSCOE UMANZOR Work Phone: [facility] 05-20-2023 influenza virus vaccine, unspecified formulation Sruthi Ambrosio APRN.SENIOR TECHNICAL ARCHITECT Work Phone: [facility] 07-06-2022 influenza, injectabl e, quadrivalent, preservative free Sruthi Ambrosio APRN.CNP Work Phone: [facility] 07-06-2022 influenza virus vaccine, unspecified formulation Luz Maria Perez MD Work Phone: [facility] 04-30-2021 influenza virus vaccine, unspecified formulation Aniya Preet LUMBER HACKER - SENIOR TECHNICAL ARCHITECT Work Phone: [facility] 04-30-2021 influenza, injectabl e, quadrivalent, preservative free ROSCOE ERNA Work Phone: [facility] 04-30-2021 influenza, seasonal, injectable Giovanni Ellis SENIOR TECHNICAL ARCHITECT Work Phone: [facility] 12-22-2020 HEMOGLOBIN A1C Kaela MALDONADOC Work Phone: [facility] 11-05-2020 Moderna Covid-19 Vaccine Giovanni Ellis SENIOR TECHNICAL ARCHITECT Work Phone: [facility] Comment on above: Result Comment: 2023: [id number] 10-09-2020 Moderna Covid-19 Vaccine Areli Rajput LUMBER HACKER ANNUAL CAMPAIGN MANAGER Work Phone: [facility] Comment on above: Result Comment: 2023: TPV40 09-25-2020 HEMOGLOBIN A1C Areli Espinoza PRN ANNUAL CAMPAIGN MANAGER Work Phone: [facility] 04-25-2020 influenza nasal, unspecified formulation Sruthi Ambrosio LUMBER HACKER.SENIOR TECHNICAL ARCHITECT Work Phone: [facility] 04-25-2020 Influenza, injectabl e, Madin Anni Canine Kidney, preservative free, quadrivalent Abhinav Garrett MD Work Phone: [facility] 04-25-2020 influenza, seasonal, injectable Giovanni Ellis SENIOR TECHNICAL ARCHITECT Work Phone: [facility] 04-25-2020 influenza virus vaccine, unspecified formulation Kaela Fatima PA-C Work Phone: [facility] 06-18-2019 influenza virus vaccine, unspecified formulation ARLENE BARNETT DO [facility] Comment on above: Result Comment: 2023: VIS DATE: 02/22/2019 06-18-2019 influenza, injectabl e, quadrivalent, preservative free [facility] 06-18-2019 influenza, seasonal, injectable Giovanni Ellis SENIOR TECHNICAL ARCHITECT Work Phone: [facility] 04-04-2019 pneumococcal conjuga te vaccine, 13 valent [facility] [place] 04-04-2019 tetanus toxoid, redu alia diphtheria toxoid, and acellular pertussis vaccine, adsorbed [facility] [place] 05-26-2015 influenza virus vaccine, unspecified formulation ARLENE BARNETT DO [facility] 05-26-2015 influenza, seasonal, injectable Giovanni Ellis SENIOR TECHNICAL ARCHITECT Work Phone: [facility] 05-26-2015 influenza, seasonal, injectable, preservative free Abhinav Garrett MD Work Phone: [facility] 05-26-2015 Seasonal, quadrivale nt, recombinant, injectable influenza vaccine, preservative free EDWARD ERNA Work Phone: [facility] 06-11-2013 influenza nasal, unspecified formulation Abhinav Garrett MD Work Phone: [facility] 06-11-2013 Influenza Vaccine, unspecified formulation [facility] , [place] 06-11-2013 influenza, seasonal, injectable Abhinav Garrett MD Work Phone: [facility] 03-26-2013 pneumococcal polysaccharide vaccine, 23 valent [facility], [place] 03-26-2013 tetanus toxoid, redu alia diphtheria toxoid, and acellular pertussis vaccine, adsorbed [facility], [place] 05-31-2011 hepatitis B vaccine, adult dosage Giovanni Ellis SENIOR TECHNICAL ARCHITECT Work Phone: [facility] 05-31-2011 influenza, injectabl e, quadrivalent, preservative free EDWARD ERNA Work Phone: [facility] 05-31-2011 influenza, seasonal, injectable Giovanni Ellis SENIOR TECHNICAL ARCHITECT Work Phone: [facility] 05-31-2011 hepatitis B vaccine, unspecified formulation Abhinav Garrett MD Work Phone: [facility] 05-31-2011 influenza virus vaccine, unspecified formulation Areli Rajput APRN ANNUAL CAMPAIGN MANAGER Work Phone: [facility] 05-23-2007 influenza virus vaccine, whole virus Giovanni Ellis SENIOR TECHNICAL ARCHITECT Work Phone: [facility] 05-23-2007 influenza, injectabl e, quadrivalent, preservative free EDWARD ERNA Work Phone: [facility] 06-08-2006 influenza virus vaccine, whole virus Giovanni Ellis SENIOR TECHNICAL ARCHITECT Work Phone: [facility] 06-08-2006 influenza, injectabl e, quadrivalent, preservative free EDWARD ERNA Work Phone: [facility] 01-15-1992 measles, mumps and rubella virus vaccine Giovanni Ellis SENIOR TECHNICAL ARCHITECT Work Phone: [facility] 01-15-1992 measles/mumps/rubell a virus vaccine ARLENE BARNETT DO [facility] Payers Date Payer Category Payer Self-pay 2024 Unknown [id number] 2022 Medicaid [id number] 2022 Medicaid HMO [id number] 1.13.680.2. [id number] 2021 Medicaid [id number]. 1.13.159.2. [id number] 2021 [place] [facility] [id number] 2021-Present [phone] [address] [place] [address] [id number]. 7.3.952438.315 2020 Private Health Insurance [id number] 1.2.840.870375.1.13.248.2. 7.3.694405.315 2020 Medicaid [facility] [id number] 2020-Present [phone] [address] [place] [address] Medicaid [id number] 1.2.840.262470.1.13.248.2. [id number] 2018 Unknown [facility] xxxxxxxxxxx 2018-Present [phone] [address] [place] [address] xxxxxxxxxxx 1.2.840.067507.1.13.239.2. 7.3.570851.315 2018 Unknown [id number] 1979 Unknown [id number] 2.16840.1.698094.3.579.2. 204 1979 Unknown [id number] 2.16840.1.498566.3.579.2. 204 1979 Unknown [id number] 2.16840.1.865449.3.579.2. 356 1979 Unknown [id number] 2.16.840.1.932289.3.579.2. 177 1979 Unknown [id number] 2.16.840.1.107826.3.579.2. 647 1979 Unknown [id number] 2.16.840.1.870168.3.579.2. 668 1979 Unknown [id number] 2.16.840.1.085732.3.579.2. 668 1979 Unknown [id number] 2.16.840.1.839162.3.579.2. 668 1979 Unknown [id number] 2.16.840.1.497774.3.579.2. 668 1979 Unknown [id number] 2.16.840.1.239201.3.579.2. 668 1979 Unknown [id number] 2.16.840.1.748466.3.579.2. 627 1979 Unknown [id number] 2.16.840.1.980508.3.579.2. 627 1979 Unknown [id number] 2.16.840.1.540343.3.579.2. 627 1979 Unknown [id number] 2.16.840.1.730700.3.579.2. 627 1979 Unknown [id number] 2.16.840.1.169970.3.579.2. 627 1979 Unknown [id number] 2.16.840.1.627748.3.579.2. 627 1979 Unknown [id number] 2.16.840.1.703621.3.579.2. 7 1979 Unknown [id number] 2.16.840.1.133086.3.579.2. 627 1979 Unknown [id number] 2.16.840.1.098150.3.579.2. 627 1979 Unknown [id number] 2.16.840.1.616960.3.579.2. 627 1979 Unknown [id number] 2.16.840.1.256718.3.579.2. 7 1979 Unknown [id number] 2.16.840.1.611173.3.579.2. 627 1979 Unknown [id number] 2.16.840.1.081241.3.579.2. 627 1979 Unknown [id number] 2.16.840.1.427114.3.579.2. 627 Medicaid [facility] MEDICAID [id number] Private Health Insurance Unknown [id number] 2.16.840.1.460854.3.579.2. 462 Unknown [id number] 2.16.840.1.882661.3.579.2. 462 Unknown [id number] 2.16.840.1.907847.3.579.2. 462 Unknown [id number] 2.16.840.1.569264.3.579.2. 462 Unknown [id number] 2.16.840.1.982021.3.579.2. 462 Unknown [id number] 2.16.840.1.506381.3.579.2. 462 Unknown [id number] 2.16.840.1.697942.3.579.2. 462 Social History Date Type Detail Facility Start: 05-08-2019 End: 03-20-2023 Tobacco smoking status PRIS Current every day smoker [place] Start: 11-08-1996 End: 11-08-2021 History of tobacco use Cigarette Smoker [place] Start: 05-08-2019 End: 11-22-2024 Cigarettes smoked current (pack per day) - Reported [facility] Start: 05-08-2019 End: 11-22-2024 Alcohol intake No [facility] Start: 1980 Sex Assigned At Not on file M [place], [place] Start: 04-04-2019 End: 06-18-2019 Alcohol intake Current non-drinker of alcohol (finding) [place] Start: 10-24-2020 End: 01-10-2025 Tobacco smoking status PRIS Former smoker [facility] Start: 11-08-1996 End: 11-08-2021 History of tobacco use Current smoker [facility] Start: 10-24-2020 End: 12-11-2020 Tobacco use and exposure Former user [facility] History of tobacco use Snuff User [facility] Start: 10-06-2020 End: 08-25-2022 History SDOH Alcohol Frequency 1 [facility] Start: 10-06-2020 History SDOH Social Connections Phone 5 [facility] Start: 10-06-2020 History SDOH Social Connections Restorationist 3 [facility] Start: 10-06-2020 End: 04-30-2021 History SDOH Social Connections Membership 2 [facility] Start: 10-06-2020 History SDOH Social Connections Living 7 [facility] Start: 10-10-2021 End: 08-25-2022 Exposure to SARS-CoV-2 (event) Not sure [facility] Work Phone: Start: 01-19-2021 End: 03-07-2025 Alcohol intake Ex-drinker (finding) [facility] Start: 04-30-2021 History SDOH Financial 4 [facility] Start: 1980 Sex Assigned At Male A [facility] Start: 08-24-2021 End: 01-10-2025 Tobacco use and exposure Smokeless tobacco non-user [facility] [employer] Phone: Start: 12-31-2021 End: 02-17-2022 Tobacco Comment nicotine lozenges daily [facility] Start: 08-25-2022 History SDOH Alcohol Std Drinks 0 [facility] Start: 12-02-2022 Education 21 [facility] Start: 06-11-2012 Adult Depression Screening Assessment 0 [facility] Start: 03-20-2023 Tobacco smoking stat us PRIS Unknown if ever smoked [facility] How often to you hav e a drink containing alcohol? Never [facility] Start: 09-19-2023 End: 04-06-2024 Tobacco smoking status Heavy tobacco smoker (finding) [facility] In the past 12 month s, was there a time when you were not able to pay the mortgage or rent on time? Yes [facility] Start: 02-13-2024 Gender identity Identifies as male gender (finding) [facility] Start: 06-05-2019 End: 02-08-2022 Sex Male (finding) [facility] Sexual Orientation [facility] Start: 08-24-2024 Tobacco use and exposure User of smokeless tobacco [employer] Start: 08-24-2024 Tobacco Comment Vaping Isai gayle Start: 02-21-2025 Tobacco smoking status Never s moked any substance (finding) [employer] Work Phone: Medical Equipment Procedure Code Equipment Code Equipment Origin al Text Equipment Identifier Dates [id number] Start: 04-04-2019 End: 03-04-2023 Comment on above: Test blood sugar(s) 4 times daily. Dx: T ype 1 DM E10.42 Insulin: Yes Use new needle with each insulin injection 4 times a day Inject 1 Each subcut aneously q 24 HR. Give with each insulin administration. USE TO CHECK BLOOD S UGAR SEVEN TIMES A DAY dx: dm1 e10.9 USE WITH INSULIN PEN S ONCE DAILY diagnosis E10.65 PATIENT IS OFF OF INSULIN PUMP AND NOW USING BASAL/BOLUS INSULIN AGAIN Use 3 times daily wi th Humalog injections. Diagnosis E10.65 PATIENT IS OFF OF INSULIN PUMP AND NOW USING BASAL/BOLUS INSULIN AGAIN Inject 1 Each subcut aneously three times daily. Use 3 times daily with Humalog injections. Diagnosis E10.65 PATIENT IS OFF OF INSULIN PUMP AND NOW USING BASAL/BOLUS INSULIN AGAIN use 1 strip 7 times daily as directed to test blood glucose level Use as directed 7 ti mes daily to test blood glucose Use for checking blo od sugars up to 7 times daily, AC/HS plus as needed for symptoms for hyper/hypoglycemia As directed AC a nd HS. [id number] Start: 06-18-2019 Use as directed 5x day. [id number] Start: 06-18-2019 E10.9 Use to libertad t glucose 5 times a day One Touch Verio [id number] Start: 03-31-2021 E10.9 One Touch Verio Use to test glucose 4 times a day [id number] Start: 01-21-2021 Test 5 times a d ay & as needed for symptoms of irregular blood glucose. [id number] Start: 08-05-2020 As directed AC a nd HS. [id number] Start: 02-21-2020 Use as directed 5x day. [id number] Start: 02-21-2020 [place] Thk1.65mm P tfe 4x.5in Cardiovascular Sterile - [id number] Start: 01-26-2022 Ring Hernandez Mc3 28mm Titanium Silicone Rubber Polyester Annuloplasty 1 - [id number] Start: 01-26-2022 Patch Thk.5mm Frederic vine Pericardial [id number] Cardiovascular Resilience Durable - [id number] Start: 01-26-2022 Valve Hernandez Inspiris Resilia 25mm Pericardial Aortic Bioprosthesis - [id number] Start: 01-26-2022 Test 5 times a d ay & as needed for symptoms of irregular blood glucose. [id number] Start: 08-05-2020 Test 4 times per day. DX:E10.9 [id number] Start: 05-24-2022 Use for checking blood sugars up to 7 times daily, AC/HS plus as needed for symptoms for hyper/hypoglycemia [id number] Start: 07-04-2023 End: 01-04-2024 USE WITH INSULIN PENS ONCE DAILY diagnosis E10.65 PATIENT IS OFF OF INSULIN PUMP AND NOW USING BASAL/BOLUS INSULIN AGAIN [id number] Start: 09-30-2022 End: 12-20-2024 Inject 1 Each subcutaneously three times daily. Use 3 times daily with Humalog injections. Diagnosis E10.65 PATIENT IS OFF OF INSULIN PUMP AND NOW USING BASAL/BOLUS INSULIN AGAIN [id number] Start: 01-07-2023 End: 12-20-2024 Use for checking blood sugars up to 7 times daily, AC/HS plus as needed for symptoms for hyper/hypoglycemia [id number] Start: 01-04-2024 End: 01-23-2024 TEST UP TO 7 MICHAEL ES DAILY BEFORE MEALS AND AT BEDTIME PLUS NEEDED FOR SYMPTOMS [id number] Start: 01-23-2024 End: 12-20-2024 See Instructions , Use one test strip to check blood sugar ___ times daily as directed. Dispense insurance preferred test strips. 1 box of 100, # 1 EA, 0 Refill(s), 98.6 Start: 04-11-2024 See Instructions , Use one test strip to check blood sugar _7__ times daily as directed. Dispense insurance preferred test strips. 1 box of 300 per 90 days, # 3 EA, 3 Refill(s), Pharmacy: [id number], 193, cm, 04/16/24 15:08:00 EDT, Height, 106.8, kg, 04/16/24 15:08:00 EDT, Dosing Weight Start: 04-16-2024 See Instructions , Use one test strip to check blood sugar _7__ times daily as directed. Dispense insurance preferred test strips. 1 box of 300 per 90 days, # 3 EA, 3 Refill(s), Pharmacy: [id number], 193, cm, 04/16/24 15:08:00 EDT, Height, 106.8, kg, 04/16/24 15:08:00 EDT, Dosing Weight Start: 04-16-2024 [place]more Thk1.65mm P tfe 4x.5in Cardiovascular Sterile - [id number] Start: 12-25-2024 Valve Masters Hemashield 23mm 18.6mm 24mm Collagen 12cm Aortic Low Porosity - [id number] Start: 12-25-2024 Goals Date Patient Goal Desired Activity /State Personal health goal Personal health goal Functional Status Date Assessment Result Facility 03-15-2025 Patient Health Questionnaire 2 item (PHQ-2) [Reported] [facility] 03-15-2025 PHQ-9 quick depressi on assessment panel [Reported.PHQ] [facility] 02-21-2025 Functional Status without [employer] Work Phone: 02-21-2025 dependent [employer] Work Phone: 12-31-2024 Are you deaf, or do you have serious difficulty hearing No 12/31/2024 5:43 PM EDT Flakita Newman, ROXANA No [facility] 12-31-2024 Are you blind, or do you have serious difficulty seeing, even when wearing glasses No 12/31/2024 5:43 PM ANAT Flakita Newman, ROXANA No [facility] 12-31-2024 Do you have serious difficulty walking or climbing stairs No 12/31/2024 5:43 PM EDT Flakita Newman, ROXANA No [facility] 12-31-2024 Do you have difficul ty dressing or bathing No 12/31/2024 5:43 PM EDT Flakita Newman RN No [facility] 12-31-2024 Because of a physica l, mental, or emotional condition, do you have difficulty doing errands alone such as visiting a physician's office or shopping No 12/31/2024 5:43 PM EDT Flakita Newman, ROXANA No [facility] 12-24-2024 Are you deaf, or do you have serious difficulty hearing No 12/24/2024 12:05 PM EDT Niki Bailon RN No [facility] 12-24-2024 Are you blind, or do you have serious difficulty seeing, even when wearing glasses No 12/24/2024 12:05 PM EDT Niki Bailon RN No [facility] 12-24-2024 Do you have serious difficulty walking or climbing stairs No 12/24/2024 12:05 PM EDT Niki Bailon RN No [facility] 12-24-2024 Do you have difficul ty dressing or bathing No 12/24/2024 12:05 PM EDT Niki Bailon RN No [facility] 12-24-2024 Because of a physica l, mental, or emotional condition, do you have difficulty doing errands alone such as visiting a physician's office or shopping No 12/24/2024 12:05 PM EDT Niki Bailon RN No [facility] 04-11-2024 Functional Status Independent [facility] 04-06-2024 Functional Status Ambulation in [facility] 03-29-2024 Functional Status Independent [facility] 03-29-2024 Functional Status N/A [facility] 02-10-2024 Are you deaf, or do you have serious difficulty hearing No 02/10/2024 3:40 PM EDT Shakira Bruce RN No [facility] 02-10-2024 Are you blind, or do you have serious difficulty seeing, even when wearing glasses No 02/10/2024 3:40 PM EDT Shakira Bruce RN No [facility] 02-10-2024 Do you have serious difficulty walking or climbing stairs No 02/10/2024 3:40 PM EDT Shakira Bruce RN No [facility] 02-10-2024 Do you have difficul ty dressing or bathing No 02/10/2024 3:40 PM EDT Shakira Bruce RN No [facility] 02-10-2024 Because of a physica l, mental, or emotional condition, do you have difficulty doing errands alone such as visiting a physician's office or shopping No 02/10/2024 3:40 PM EDT Shakira Bruce RN No [facility] 02-01-2024 Functional Status Independent [facility] 02-01-2024 Functional Status Repositions self [facility] Mental Status Date Assessment Result Facility 12-31-2024 Because of a physica l, mental, or emotional condition, do you have serious difficulty concentrating, remembering, or making decisions No 12/31/2024 5:43 PM EDT Flakita Newman RN No [facility] 12-24-2024 Because of a physica l, mental, or emotional condition, do you have serious difficulty concentrating, remembering, or making decisions No 12/24/2024 12:05 PM EDT Niki Bailon RN No [facility] 04-11-2024 Mental Status Orientation Oriented x 4 [facility] 04-06-2024 Mental Status Oriented x 4 [facility] 03-29-2024 Mental Status Orientation Oriented x 4 [facility] 03-29-2024 Mental Status [facility] 02-10-2024 Because of a physica l, mental, or emotional condition, do you have serious difficulty concentrating, remembering, or making decisions No 02/10/2024 3:40 PM EDT Shakira Bruce RN No [facility] 02-01-2024 Mental Status Orientation Oriented x 4 [facility] 02-01-2024 Mental Status [facility] Clinical Notes 08-27-2015 to 03-26-2025 Telephone Encounter - Colleen Hoffman LPN - 03/26/2025 4:46 PM EDTTelephone Encounter - Colleen Hoffman LPN - 03/26/2025 4:46 PM Alyx Cherry RN - 03/26/2025 1:12 PM EDT Note Date & Type Note Facility 03-26-2025 Telephone encounter Note Patient MyChart message requesting the following refill. Requested Prescriptions Pending Prescriptions Disp Refills rosuvastatin (CRESTOR) 10 mg tablet 90 tablet 3 Sig: Take 1 tablet by mouth daily at bedtime. traZODone (DESYREL) 100 mg tablet 90 tablet 3 Sig: Take 1 tablet by mouth daily at bedtime. Patient last appointment: 03/07/2025 Next appointment 07/16/2025 Last refill for Rosuvastatin 12/09/2023 90/3 per Sruthi Ambrosio APRN Last refill for Trazodone ? Patient Phone numbers: [phone] (home) Request is for script(s) to be escript to [facility] pharmacy. Colleen Hoffman LPN [facility] 03-26-2025 Miscellaneous Notes Patient MyChart message requesting the following refill. Requested Prescriptions Pending Prescriptions Disp Refills rosuvastatin (CRESTOR) 10 mg tablet 90 tablet 3 Sig: Take 1 tablet by mouth daily at bedtime. traZODone (DESYREL) 100 mg tablet 90 tablet 3 Sig: Take 1 tablet by mouth daily at bedtime. Patient last appointment: 03/07/2025 Next appointment 07/16/2025 Last refill for Rosuvastatin 12/09/2023 90/3 per Sruthi Ambrosio APRN Last refill for Trazodone ? Patient Phone numbers: [phone] (home) Request is for script(s) to be escript to [facility] pharmacy. Colleen Hoffman LPN documented in this encounter [facility] 03-26-2025 Note [facility] 03-26-2025 History of Present illness Narrative patient had inr completed at [facility] patients inr is 2.0 (patients inr range is 2.0-3.0) patient is currently taking 7.5mg Wed and 5mg all other days patients last dose change was on 01/16/25 due to a low level of 1.8 (dose at that time was 5mg daily) patient has had no changes in medication and no missed doses and no change in diet Advised patient to continue on the same dose(s) and that they would only be contacted regarding dosage and follow up instructions after review with provider, if a change is needed. Written instructions given and patient verbalized understanding. Presently scheduled in 3 weeks (04/16/25) for follow up INR. I have read and agree with note below. documented in this encounter [facility] 03-26-2025 Note HNO ID: [id number] Author: ANIA CABALLERO RPh Service: ? Author Type: Pharmacist Type: Progress Notes Filed: 03/26/2025 13:26 Note Text: I have read and agree with note below. [facility] 03-25-2025 Note [facility] 03-25-2025 History of Present illness Narrative Images from the original note were not included. [facility] New Patient Virtual Evaluation I have communicated my name and active licensure. The patient's identity and physical location were verified at the time of this visit. Either the patient or their legal contact representative has been informed of the risks and benefits of -- and alternatives to -- treatment through a remote evaluation and consents to proceed with the evaluation remotely. Consulting Provider: No referring provider defined for this encounter. I received consent from the patient to perform the visit as a virtual encounter. Individuals who were included in, or assisted with the encounter were: Luisito Cardoza MD Chief Complaint/Issues: Luisito Zhong is a 44 year old male seen in the [facility] for: Concern for Diabetic Polyneuropathy HPI: Luisito Zhong is a 44-year-old male with a history of insulin-dependent diabetes mellitus (IDDM) presenting for evaluation of neuropathy symptoms. Luisito has been insulin-dependent for 41 years and was diagnosed with moderate diabetic neuropathy over 20 years ago. He reports tingling and numbness in his legs, more pronounced on the right side, extending to the top of the right foot. These sensations are primarily located on the top part of his legs. He does not endorse experiencing pins and needles or shooting pain. Luisito has a history of physically demanding work and notes that over the past five years, his leg muscles have become extremely stiff and struggle to recover after a tough day. He describes the muscles as not wanting to loosen back up. He also reports issues with his spine, including spinal compression and stenosis in his neck, confirmed by MRI. He is experiencing nerve stuff in his lower back as well. An EMG of his arms is scheduled for Tuesday, and an EMG of his legs is scheduled for March 02. Luisito is currently taking Cymbalta, which was prescribed in place of gabapentin during a treatment program for cocaine addiction around 8680-1743. He notes that Cymbalta seems to help with any neuropathy symptoms. He is also taking Lexapro for depression. Luisito has a history of vitamin D deficiency, particularly in the winter, and is currently taking an iron supplement due to a recent deficiency. He is on warfarin for a mechanical aortic valve and has undergone several heart surgeries, the most recent in December. He also has a history of hypothyroidism and hypercholesterolemia. General Examination: He is alone. General: Awake, alert, interactive, no acute distress, good nutritional status, normal development, well-kept Neurological Exam Mental Status Alert, fully oriented, attentive, with normal cognition, memory, speech and affect. Cranial Nerves Extraocular movements normal. No nystagmus, no ptosis, and pupils equal. Face symmetrical. Tongue normal. Motor Examination and Coordination Distance Motor Examination Arms: Well-coordinated symmetrical strong antigravity movements of both arms. Raises arms well above head. Manipulates phone and small objects well. No drift. Rapid alternating movements are symmetrical and normal. No tremor or adventitious movements. No dysmetria on finger-nose testing. No apparent muscle atrophy or deformity/contracture. Reflexes Not examined, distance exam Assessment & Plan 1. Type 1 diabetes mellitus with diabetic polyneuropathy (HCC) (E10.42) - Insulin-dependent for 41 years; history of moderate neuropathy diagnosed over 20 years ago. - Paresthesia and numbness in legs (right > left) and dorsum of right foot; symptoms atypical for diabetic neuropathy, raising suspicion for additional etiologies (e.g., spinal pathology). - EMG of upper extremities scheduled for Tuesday; lower extremity EMG rescheduled for March 02. - Continue Cymbalta for neuropathic symptoms. - Educated on typical presentation of diabetic neuropathy and possibility of other contributing factors; patient expressed understanding and agreement with plan. - Await EMG results to determine need for further neuropathy evaluation. 2. Substance abuse ([facility]) (F19.10) - History of cocaine addiction; transitioned from gabapentin to Cymbalta during treatment in 8512-7439. 3. History of mechanical aortic valve replacement (Z95.2) 4. long-term (current) use of anticoagulants (Z79.01) - On warfarin for mechanical aortic valve. - Most recent heart surgery in December. - Discussed that some EMG facilities may request holding anticoagulation, but patient was advised by facility that no restrictions are necessary. 5. Vitamin D deficiency (E55.9) - not likely playing a role in neuropaty Encounter Diagnosis ICD-10-CM 1. Type 1 diabetes mellitus with diabetic polyneuropathy ([facility]) E10.42 2. Substance abuse ([facility]) F19.10 3. History of mechanical aortic valve replacement Z95.2 4. Hypercholesterolemia E78.00 5. Vitamin D deficiency E55.9 6. long-term (current) use of anticoagulants Z79.01 No follow-ups on file. Data Review Objective Current Outpatient Medications Medication Sig warfarin (COUMADIN) 5 mg tablet Take 7.5 mg (one and a half tablets) on Tuesday only. All the rest of the days, take one tablet (5 mg) daily. albuterol HFA (PROVENTIL HFA, VENTOLIN HFA) 90 mcg/actuation inhaler Inhale 2 puffs as instructed every 4 hours as needed. umeclidinium-vilanterol (ANORO ELLIPTA) 62.5-25 mcg/actuation inhaler Inhale 1 inhalation as instructed once daily. DEXCOM G7 SENSOR xenia (Patient not taking: Reported on 02/28/2025) ferrous sulfate 325 mg (65 mg iron) tablet Take iron daily with vitamin C to increase absorption. ascorbic acid, vitamin C, (VITAMIN C) 500 mg tablet Take vitamin C daily with iron to increase absorption. ciclopirox (LOPROX) 0.77 % cream APPLY TOPICALLY TO THE AFFECTED AREA TWICE DAILY NEEDED FOR RASH levothyroxine (SYNTHROID) 150 mcg tablet Take 1 tablet by mouth daily before breakfast. acetaminophen (TYLENOL) 500 mg tablet Take 1-2 tablets by mouth every 6 hours as needed for pain. Do not exceed 4000mg in 24 hours aspirin 81 mg chewable tablet Take 1 tablet by mouth once daily. insulin lispro (HUMALOG U-100 INSULIN) 100 unit/mL injection Continue insulin pump with home settings Home pump settings: Medtronic 780G, Humalog Basal Rate: 00:00 = 1.25 units/hr 4:00 = 1.30 units/hr 7:00 = 1.50 units/hr 11:00 = 1.60 units/hr 18:00 = 1.40 units/hr 23:00 = 1.20 units/hr Insulin:Carbohydrate ratio: 00:00 1 units per 8.5 g carbohydrate 17:00 1 units per 7 g carbohydrate Correction bolus: 1 unit insulin lowers glucose 35 mg/dL, correct to a target blood glucose of 110-130 mg/dL cholecalciferol, Vitamin D3, (VITAMIN D3) 1,250 mcg (50,000 unit) cap capsule Take 50,000 Units by mouth one time a week. traZODone (DESYREL) 100 mg tablet Take 100 mg by mouth daily at bedtime. rosuvastatin (CRESTOR) 10 mg tablet Take 1 tablet by mouth daily at bedtime. DULoxetine (CYMBALTA) 30 mg capsule Take 1 capsule by mouth once daily. escitalopram oxalate (LEXAPRO) 20 mg tablet Take 1 tablet by mouth once daily. No current facility-administered medications for this visit. ACTIVE PROBLEM LIST Impingement Syndrome of Right Shoulder Type 1 Diabetes Mellitus With Diabetic Polyneuropathy (Hcc) Acquired Hypothyroidism Former Smoker Subaortic Membrane (Hcc) Mitral Regurgitation Alcohol Abuse History of Drug Abuse ([facility]) Mixed Anxiety and Depressive Disorder Dyspnea Dyslipidemia Obesity (Bmi 30-39.9) Discharge Planning Issues Atelectasis Post-Op Pain Exertional Dyspnea Tricuspid Regurgitation Aortic Regurgitation Obesity, Class II, Bmi 35-39.9 Hypervolemia Encounter for Support and Coordination of Transition of Care Nicotine use disorder, F17.2 History of Asthma History of Cocaine Use Mixed Hyperlipidemia Hypoglycemia Chronic Right Shoulder Pain Pain in Joint, Shoulder Region Substance Abuse (Hcc) Vitamin D Deficiency Type 1 Diabetes Mellitus Without Complication (Hcc) Homeless Cocaine Abuse ([facility]) Aortic Valve Disorder Class 1 Drug-Induced Obesity With Serious Comorbidity and Body Mass Index (Bmi) of 31.0 to 31.9 in Adult Pre-Op Testing Crack Cocaine Use Postoperative Pulmonary Edema ([facility]) S/P Avr (Aortic Valve Replacement) Coagulopathy ([facility]) Stress Hyperglycemia Anticoagulation Management Encounter Type 1 Diabetes Mellitus With Hyperglycemia ([facility]) Insulin Pump in Place Obesity, Class I, Bmi 30-34.9 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 Current Use of Anticoagulant Therapy Chronic Anemia Overweight With Body Mass Index (Bmi) of 29 to 29.9 in Adult History of Mechanical Aortic Valve Replacement 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 (Current) Use of Anticoagulants Herniation of Intervertebral Disc of Cervical Region Presence of Other Heart-Valve Replacement Iron Deficiency Anemia Secondary to Inadequate Dietary Iron Intake Cognitive Decline Numbness of Right Foot Peripheral Vascular Disease Peripheral Edema History of Aortic Valve Stenosis PAST MEDICAL HISTORY Diagnosis Date Acquired hypothyroidism Alcohol abuse sober since 2013 Anxiety and depression 04/04/2019 Cocaine abuse in remission ([facility]) last used 10/17/2014 Ex-smoker Ex-smoker Started at the age of 15 up to 1 PPD and quit 07/2018 Frozen shoulder 03/12/2014 History of drug abuse ([facility]) 04/04/2019 Cocaine and marijuana. Has been clean since 06/21/2018. 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 12/25/2024 Subaortic membrane (HCC) with stenosis Tachycardia 02/05/2025 Tetrahydrocannabinol (THC) use disorder, mild, in sustained remission, in controlled environment, abuse Type 1 diabetes mellitus with diabetic polyneuropathy ([facility]) PAST SURGICAL HISTORY Procedure Laterality Date HIP SURGERY HX Right PAST SURGICAL HISTORY OF Left shoulder scope PAST SURGICAL HISTORY OF 12/2018 aortic valve surgery to help open up REVISE MEDIAN N/CARPAL TUNNEL SURG Bilateral RT ELBOW CUBITAL TUNNEL ONLY Right SHOULDER SURGERY HX Right x4 SOCIAL HISTORY[1] FAMILY HISTORY Problem Relation Age of Onset No Known Problems Mother No Known Problems Father No Known Problems Sister No Known Problems Sister Cancer Maternal Grandmother Heart Attack Paternal Grandfather Review of Systems Lab and Test Review: Office Visit on 03/07/2025 Component Date Value Ref Range Status INR (POCT) 03/07/2025 2.0 (H) 0.8 - 1.2 Final Internal Quality Check 03/07/2025 Acceptable Final Results Only on 02/22/2025 Component Date Value Ref Range Status INR (POCT) 02/22/2025 1.9 (H) 0.8 - 1.2 Final Internal Quality Check 02/22/2025 Acceptable Final Anticoagulation Visit on 02/06/2025 Component Date Value Ref Range Status INR (POCT) 02/06/2025 2.4 (H) 0.8 - 1.2 Final Internal Quality Check 02/06/2025 Acceptable Final Anticoagulation Visit on 01/23/2025 Component Date Value Ref Range Status INR (POCT) 01/23/2025 2.8 (H) 0.8 - 1.2 Final Internal Quality Check 01/23/2025 Acceptable Final Results Only on 01/17/2025 Component Date Value Ref Range Status INR (POCT) 01/17/2025 2.5 (H) 0.8 - 1.2 Final Internal Quality Check 01/17/2025 Acceptable Final Appointment on 01/16/2025 Component Date Value Ref Range Status WBC 01/16/2025 6.66 3.70 - 11.00 k/uL Final RBC 01/16/2025 4.18 (L) 4.20 - 6.00 m/uL Final Hemoglobin 01/16/2025 11.9 (L) 13.0 - 17.0 g/dL Final Hematocrit 01/16/2025 36.9 (L) 39.0 - 51.0 % Final MCV 01/16/2025 88.3 80.0 - 100.0 fL Final MCH 01/16/2025 28.5 26.0 - 34.0 pg Final MCHC 01/16/2025 32.2 30.5 - 36.0 g/dL Final RDW-CV 01/16/2025 12.7 11.5 - 15.0 % Final Platelet Count 01/16/2025 476 (H) 150 - 400 k/uL Final MPV 01/16/2025 9.1 9.0 - 12.7 fL Final Neutrophils % 01/16/2025 54.2 % Final Abs Neut 01/16/2025 3.62 1.45 - 7.50 k/uL Final Lymphocytes % 01/16/2025 27.2 % Final Abs Lymph 01/16/2025 1.81 1.00 - 4.00 k/uL Final Monocytes % 01/16/2025 10.1 % Final Abs Kerr 01/16/2025 0.67 <0.87 k/uL Final Eosinophils % 01/16/2025 6.3 % Final Abs Eosin 01/16/2025 0.42 <0.46 k/uL Final Basophils % 01/16/2025 2.0 % Final Abs Baso 01/16/2025 0.13 (H) <0.11 k/uL Final Immature Granulocytes % 01/16/2025 0.2 % Final Abs Immature Gran 01/16/2025 <0.03 <0.10 k/uL Final NRBC 01/16/2025 0.0 /100 WBC Final Absolute nRBC 01/16/2025 <0.01 <0.01 k/uL Final Diff Type 01/16/2025 Auto Final Protein, Total 01/16/2025 6.9 6.3 - 8.0 g/dL Final Albumin 01/16/2025 3.6 (L) 3.9 - 4.9 g/dL Final Calcium, Total 01/16/2025 9.3 8.5 - 10.2 mg/dL Final Bilirubin, Total 01/16/2025 0.4 0.2 - 1.3 mg/dL Final Alkaline Phosphatase 01/16/2025 101 38 - 113 U/L Final AST 01/16/2025 33 14 - 40 U/L Final ALT 01/16/2025 24 10 - 54 U/L Final Glucose 01/16/2025 116 (H) 74 - 99 mg/dL Final The [place] Diabetes Association (ADA) provides guidance for cutoff values for fasting glucose and random glucose. The ADA defines fasting as no caloric intake for at least 8 hours. Fasting plasma glucose results between 100 to 125 mg/dL indicate increased risk for diabetes (prediabetes). Fasting plasma glucose results greater than or equal to 126 mg/dL meet the criteria for diagnosis of diabetes. In the absence of unequivocal hyperglycemia, results should be confirmed by repeat testing. In a patient with classic symptoms of hyperglycemia or hyperglycemic crisis, random plasma glucose results greater than or equal to 200 mg/dL meet the criteria for diagnosis of diabetes. Reference: Standards of Medical Care in Diabetes 2016, [place] Diabetes Association. Diabetes Care. 2016.39(Suppl 1). BUN 01/16/2025 13 9 - 24 mg/dL Final Creatinine 01/16/2025 0.81 0.73 - 1.22 mg/dL Final Sodium 01/16/2025 140 136 - 144 mmol/L Final Potassium 01/16/2025 4.9 3.7 - 5.1 mmol/L Final Chloride 01/16/2025 107 98 - 107 mmol/L Final CO2 01/16/2025 25 22 - 30 mmol/L Final Anion Gap 01/16/2025 8 8 - 15 mmol/L Final Estimated Glomerular Filtration Ra* 01/16/2025 111 >=60 mL/min/1.73m Final Estimated Glomerular Filtration Rate (eGFR) is calculated using the 2020 CKD-EPI creatinine equation. This equation utilizes serum creatinine, sex, and age as parameters. The creatinine assay has traceable calibration to isotope dilution-mass spectrometry. Refer to KDIGO guidelines for clinical interpretation. In patients with unstable renal function, e.g. those with acute kidney injury, the eGFR may not accurately reflect actual GFR. Hemoglobin A1C 01/16/2025 6.4 (H) 4.3 - 5.6 % Final [place] Diabetes Association guidelines indicate that patients with HgbA1c in the range 5.7-6.4% are at increased risk for development of diabetes, and intervention by lifestyle modification may be beneficial. HgbA1c greater or equal to 6.5% is considered diagnostic of diabetes. Estimated Average Glucose 01/16/2025 137 mg/dL Final eAG: (Estimated average glucose) is a calculated value from HgbA1c and is contact representative of the average blood glucose level in the last 2-3 month period. Cholesterol, Total 01/16/2025 168 <200 mg/dL Final <200 mg/dL, Desirable 200-239 mg/dL, Borderline high >239 mg/dL, High Triglyceride 01/16/2025 61 <150 mg/dL Final <150 mg/dL, Normal 150-199 mg/dL, Borderline high 200-499 mg/dL, High >499 mg/dL, Very high HDL Cholesterol 01/16/2025 54 >39 mg/dL Final 40-59 mg/dL, Acceptable >59 mg/dL, High: Negative risk factor for coronary heart disease <40 mg/dL, Low: Positive risk factor for coronary heart disease LDL Cholesterol, Calculated 01/16/2025 102 (H) <100 mg/dL Final <100 mg/dL, Optimal 100-129 mg/dL, Near optimal/above optimal 130-159 mg/dL, Borderline high 160-189 mg/dL, High >189 mg/dL, Very high Secondary prevention optimal LDL Cholesterol levels are recommended to be <70 mg/dL LDL cholesterol is calculated using the [place]-NIH equation. Non HDL Cholesterol 01/16/2025 114 <130 mg/dL Final <130 mg/dL, Optimal 130-159 mg/dL, Near optimal/above optimal 160-189 mg/dL, Borderline high 190-219 mg/dL, High >219 mg/dL, Very high Secondary prevention optimal non HDL Cholesterol levels are recommended to be <100 mg/dL VLDL Cholesterol 01/16/2025 10 <30 mg/dL Final TC:HDL Ratio 01/16/2025 3.11 <5.10 Final LDL:HDL Ratio 01/16/2025 1.89 <2.54 Final Reference: 1. National Cholesterol Education Program ATP III Guideline At-A-Glance Quick Desk Reference: National Heart, Lung, and Blood [place]. National Institutes of Health. 2001: NIH Publication No. 01-3305. 2. An International Atherosclerosis Society position paper: global recommendations for the management of dyslipidemia: executive summary, Atherosclerosis. 2014: 232(2):410-413. Fasting Time 01/16/2025 12 hrs Final Vitamin D 25 Hydroxy 01/16/2025 44.6 31.0 - 80.0 ng/mL Final Classification of 25 [place] Vitamin D status: Deficiency/Insufficiency: < or = 30 ng/ml. Sufficiency/Optimal Levels: 31-80 ng/mL Toxicity: > 100 ng/mL. Test performed by chemiluminescent immunoassay. TSH 01/16/2025 9.930 (H) 0.270 - 4.200 mIU/L Final Free T4 01/16/2025 0.9 0.9 - 1.7 ng/dL Final Creatinine, Ur Random (UCRR) 01/16/2025 101.3 20.0 - 300.0 mg/dL Final Albumin, Urine Random 01/16/2025 <12.0 mg/L Final Albumin/Creat Ratio 01/16/2025 <12 <30 mg/g Final Adult Male and Female Nephrotic Criteria: <30 mg/g is considered normal to mildly increased 30-300 mg/g is considered moderately increased >300 mg/g is considered severely increased KDIGO. (2013). KDIGO 2012 Clinical Practice Guideline for the Evaluation and Management of Chronic Kidney Disease. Official Journal of the International Society of Nephrology, 3(1), 1-150. Ferritin 01/16/2025 137.0 30.3 - 565.7 ng/mL Final Iron 01/16/2025 25 (L) 41 - 186 ug/dL Final TIBC 01/16/2025 310 232 - 386 ug/dL Final Transferrin Saturation 01/16/2025 8.1 (L) 15.0 - 57.0 % Final PT Sec 01/16/2025 18.4 (H) 9.7 - 13.0 sec Final INR 01/16/2025 1.8 (H) 0.9 - 1.3 Final Vitamin K Antagonist (VKA) Therapeutic Range: INR 2 to 3 (Target INR of 2.5) Note: For patients treated with VKA drugs, such as warfarin, the [place] College [employer] Chest Physicians 2012 Guideline recommends a therapeutic INR range of 2 to 3 (target INR of 2.5). This recommendation includes high-risk patients with antiphospholipid syndrome with previous arterial or venous thromboembolism, current-generation mechanical or bioprosthetic aortic heart valve replacement. Note: Patients with mechanical aortic valve replacement and additional risk factors for thromboembolic events (atrial fibrillation, previous thromboembolism, LV dysfunction, hypercoagulable conditions) or an older generation mechanical AVR (i.e., ball in-Cage) or any mechanical MVR should have a INR therapeutic range of 2.5 to 3.5 (target INR of 3). Delores WILLIS, et al. Chest 2012, 141:7S-47S Cinda GRADY et al. [facility] 2017, 70: 252-289 Office Visit on 01/10/2025 Component Date Value Ref Range Status INR (POCT) 01/10/2025 1.4 (H) 0.8 - 1.2 Final Internal Quality Check 01/10/2025 Acceptable Final Procedure on 01/07/2025 Component Date Value Ref Range Status Ventricular Rate 01/07/2025 82 BPM Final Atrial Rate 01/07/2025 82 BPM Final P-R Interval 01/07/2025 160 ms Final QRS Duration 01/07/2025 94 ms Final QT Interval 01/07/2025 402 ms Final QTC Calculation (Bazett) 01/07/2025 469 ms Final Calculated P [place] 01/07/2025 81 degrees Final Calculated R [place] 01/07/2025 81 degrees Final Calculated T [place] 01/07/2025 21 degrees Final Appointment on 01/07/2025 Component Date Value Ref Range Status WBC 01/07/2025 9.28 3.70 - 11.00 k/uL Final RBC 01/07/2025 3.67 (L) 4.20 - 6.00 m/uL Final Hemoglobin 01/07/2025 11.0 (L) 13.0 - 17.0 g/dL Final Hematocrit 01/07/2025 32.4 (L) 39.0 - 51.0 % Final MCV 01/07/2025 88.3 80.0 - 100.0 fL Final MCH 01/07/2025 30.0 26.0 - 34.0 pg Final MCHC 01/07/2025 34.0 30.5 - 36.0 g/dL Final RDW-CV 01/07/2025 12.9 11.5 - 15.0 % Final Platelet Count 01/07/2025 490 (H) 150 - 400 k/uL Final MPV 01/07/2025 9.1 9.0 - 12.7 fL Final Absolute nRBC 01/07/2025 <0.01 <0.01 k/uL Final Protein, Total 01/07/2025 6.5 6.3 - 8.0 g/dL Final Albumin 01/07/2025 3.3 (L) 3.9 - 4.9 g/dL Final Calcium, Total 01/07/2025 9.0 8.5 - 10.2 mg/dL Final Bilirubin, Total 01/07/2025 0.5 0.2 - 1.3 mg/dL Final Alkaline Phosphatase 01/07/2025 81 38 - 113 U/L Final AST 01/07/2025 38 14 - 40 U/L Final ALT 01/07/2025 31 10 - 54 U/L Final Glucose 01/07/2025 197 (H) 74 - 99 mg/dL Final The [place] Diabetes Association (ADA) provides guidance for cutoff values for fasting glucose and random glucose. The ADA defines fasting as no caloric intake for at least 8 hours. Fasting plasma glucose results between 100 to 125 mg/dL indicate increased risk for diabetes (prediabetes). Fasting plasma glucose results greater than or equal to 126 mg/dL meet the criteria for diagnosis of diabetes. In the absence of unequivocal hyperglycemia, results should be confirmed by repeat testing. In a patient with classic symptoms of hyperglycemia or hyperglycemic crisis, random plasma glucose results greater than or equal to 200 mg/dL meet the criteria for diagnosis of diabetes. Reference: Standards of Medical Care in Diabetes 2016, [place] Diabetes Association. Diabetes Care. 2016.39(Suppl 1). BUN 01/07/2025 14 9 - 24 mg/dL Final Creatinine 01/07/2025 0.93 0.73 - 1.22 mg/dL Final Sodium 01/07/2025 138 136 - 144 mmol/L Final Potassium 01/07/2025 4.8 3.7 - 5.1 mmol/L Final Chloride 01/07/2025 104 98 - 107 mmol/L Final CO2 01/07/2025 25 22 - 30 mmol/L Final Anion Gap 01/07/2025 9 8 - 15 mmol/L Final Estimated Glomerular Filtration Ra* 01/07/2025 103 >=60 mL/min/1.73m Final Estimated Glomerular Filtration Rate (eGFR) is calculated using the 2020 CKD-EPI creatinine equation. This equation utilizes serum creatinine, sex, and age as parameters. The creatinine assay has traceable calibration to isotope dilution-mass spectrometry. Refer to KDIGO guidelines for clinical interpretation. In patients with unstable renal function, e.g. those with acute kidney injury, the eGFR may not accurately reflect actual GFR. PT Sec 01/07/2025 13.4 (H) 9.7 - 13.0 sec Final INR 01/07/2025 1.3 0.9 - 1.3 Final Vitamin K Antagonist (VKA) Therapeutic Range: INR 2 to 3 (Target INR of 2.5) Note: For patients treated with VKA drugs, such as warfarin, the [place] [employer] 2012 Guideline recommends a therapeutic INR range of 2 to 3 (target INR of 2.5). This recommendation includes high-risk patients with antiphospholipid syndrome with previous arterial or venous thromboembolism, current-generation mechanical or bioprosthetic aortic heart valve replacement. Note: Patients with mechanical aortic valve replacement and additional risk factors for thromboembolic events (atrial fibrillation, previous thromboembolism, LV dysfunction, hypercoagulable conditions) or an older generation mechanical AVR (i.e., ball in-Cage) or any mechanical MVR should have a INR therapeutic range of 2.5 to 3.5 (target INR of 3). Delores GH, et al. Chest 2012, 141:7S-47S Cinda RA, et al. [facility] 2017, 70: 252-289 No results displayed because visit has over 200 results. There may be more visits with results that are not included. Outside Data/Labs: Subjective Patient-Entered Data: NM Treatment and Fall Risk No data to display PROMIS-10 12/20/2024 02/27/2022 PROMIS 10 Health, in general Good Good Quality of life, in general Fair Good Physical health, in general Fair Fair Mental health, in general Very good Good Social activities satisfaction Very good Good Performing ADL's Mostly A little Social role satisfaction Good Fair Pain, on average 5 4 Fatigue, on average Severe Moderate Emotional problems Never Sometimes PHYSICAL Score 37.4 (Fair) 34.9 (Poor) MENTAL Score 50.8 (Very Good) 43.5 (Good) PHQ-9 02/27/2025 12/10/2022 PHQ-9 All Questions Little interest or pleasure in doing things: 1 0 Feeling down, depressed, or hopeless: 1 0 Trouble falling or staying asleep, or sleeping too much 1 Feeling tired or having little energy 3 Poor appetite or overeating 3 Feeling bad about yourself - or that you are a failure or have let yourself or your family down 3 Trouble concentrating on things, such as reading the newspaper or watching television 3 Moving or speaking so slowly that other people could have noticed. Or the opposite - being so fidgety or restless that you have been moving around a lot more than usual 1 Thoughts that you would be better off , or of hurting yourself in some way 1 PHQ-9 Score 17 Data saved with a previous flowsheet row definition (0-4) minimal depression (5-9) mild depression (10-14) moderate depression (15-19) moderately severe depression (20-27) severe depression Sleep No data to display No data to display I spent a total of 30 minutes on the date of the service which included preparing to see the patient, [id number] patient care, completing clinical documentation, obtaining and/or reviewing separately obtained history, performing a medically appropriate examination, counseling and educating the patient/family/caregiver, and ordering medications, tests, or procedures. Marysol Cardoza MD [1] Social History Tobacco Use Smoking status: Former Current packs/day: 0.00 Average packs/day: 0.5 packs/day for 25.0 years (12.5 ttl pk-yrs) Types: Cigarettes Start date: 11/1996 Quit date: 11/2021 Years since quittin.3 Smokeless tobacco: Never Tobacco comments: nicotine lozenges daily Vaping Use Vaping status: Some Days Substances: Nicotine, Flavoring Devices: Disposable Substance Use Topics Alcohol use: Not Currently Drug use: Not Currently Types: Crack Cocaine documented in this encounter [facility] 03-21-2025 Discharge summary Note Date/Time March 21, 2025 3:59pm [facility] [address] [place] [address]. [address] [place] [address] / REHABILITATION SERVICES DISCHARGE SUMMARY MR#: [id number] Acct: [id number] Name: LUISITO ZHONG Rep #: [id number] 23 : 1980 44 From: Kahlil Lamb DPT, OCS, CSCS Referring Dr.: Dr. Freddy Mujica MD Status: REG [facility] Insurance: [facility] SELF PAY INSURANCE Patient Information Patient Information: LUISITO ZHONG was seen in my office for initial evaluation on 01/17/25. The following Plan of Care was established for this patient: POC Established Initial Frequency: 2x /Week Initial Duration: 4-6 Weeks Anticipated Interventions Patient/Client Instruction: Educate patient on: Condition and Plan of Care For the Purpose of:: To decrease pain, To increase ROM, To improve nutrient delivery to tissue, To improve muscle performance and motor function, To increase tolerance to activity/condition/position and To improve gait and locomotor functions Therapeutic Exercise to Include: Strength training, Postural training, Flexibilty training, Gait and locomotor training, Passive ROM, Active ROM and [place] Exercises For the Purpose of:: To decrease pain, To increase ROM, To improve nutrient delivery to tissue, To improve muscle performance and motor function, To increase tolerance to activity/condition/position, To improve ability of physical actions for home/community/work/leisure and To improve gait and locomotor functions Manual Therapy Techniques to Include: Mobilization, Passive ROM and Soft tissue mobilization For the Purpose of:: To decrease pain, To increase ROM, To improve nutrient delivery to tissue, To increase tolerance to activity/condition/position and To improve ability of physical actions for home/community/work/leisure Last Seen Last Seen: This patient was last seen in our office 02/05/25. Pertinent comments regardingtheir Physical therapy will appear below: Pt seen 5 visits of POC and was 10% better and still having cervical radicular symptoms. He was to continue the POC afteere f/u with surgeon but never returned. At this point, it has been over 4 weeks and I will discontinue from my care. At this point I will be discontinuing this patient from physical therapy. I would be happy to see this patient again in the future if found appropriate by the physician. Thank you! Kahlil Lamb DPT, OCS, CSCS Balance/Gait/Functional tests Balance/Special Test Scores Oswestry Neck Score: 26 <Electronically signed by Kahlil Lamb DPT, OCS, CSCS> 03/21/25 1559 CC: Dr. Freddy Mujica MD; ROSCOE UMANZOR ~ EBG Signed [facility] Work Phone: [phone] Discharge summary [facility] Physical Therapy [address] [place] [address] / REHABILITATION SERVICES DISCHARGE SUMMARY MR#: [id number] Acct: [id number] Name: FARHEENLUISITOELENI ROSENBERG Rep #: [id number] 23 : 1980 44 From: Kahlil Lamb DPT, OCS, CSCS Referring Dr.: Dr. Freddy Mujica MD Status: REG R Insurance: [facility] SELF PAY INSURANCE Patient Information Patient Information: LUISITO ZHONG was seen in my office for initial evaluation on 01/17/25. The following Plan of Care was established for this patient: POC Established Initial Frequency: 2x /Week Initial Duration: 4-6 Weeks Anticipated Interventions Patient/Client Instruction: Educate patient on: Condition and Plan of Care For the Purpose of:: To decrease pain, To increase ROM, To improve nutrient delivery to tissue, To improve muscle performance and motor function, To increase tolerance to activity/condition/position and To improve gait and locomotor functions Therapeutic Exercise to Include: Strength training, Postural training, Flexibilty training, Gait and locomotor training, Passive ROM, Active ROM and [place] Exercises For the Purpose of:: To decrease pain, To increase ROM, To improve nutrient delivery to tissue, To improve muscle performance and motor function, To increase tolerance to activity/condition/position,To improve ability of physical actions for home/community/work/leisure and To improve gait and locomotor functions Manual Therapy Techniques to Include: Mobilization, Passive ROM and Soft tissue mobilization For the Purpose of:: To decrease pain, To increase ROM, To improve nutrient delivery to tissue, To increase tolerance to activity/condition/position and To improve ability of physical actions for home/community/work/leisure Last Seen Last Seen: This patient was last seen in our office 02/05/25. Pertinent comments regardingtheir Physical therapy will appear below: Pt seen 5 visits of POC and was 10% better and still having cervical radicular symptoms. He was to continue the POC afteere f/u with surgeon but never returned. At this point, it has been over 4 weeks and I will discontinue from my care. At this point I will be discontinuing this patient from physical therapy. I would be happy to see this patient again in the future if found appropriate by the physician. Thank you! Kahlil Lamb, RUBENT, OCS, CSCS Balance/Gait/Functional tests Balance/Special Test Scores Oswestry Neck Score: 26 03/21/25 1559 CC: Dr. Freddy Mujica MD; ROSCOE UMANZOR ~ EBG Signed [facility]09-10-2025 Telephone encounter Note* Telephone Encounter - Eliza Hopkins - 03/20/2025 8:03 AM EDT Called, left voicemail for patient to contact office to schedule appointment. Left detailed messageinforming patient Robyn does have available appointments today and on 03/21/2025 if interested. Eliza Hopkins [facility]09-10-2025 Telephone encounter Note* Telephone Encounter - Eliza Hopkins - 03/20/2025 8:03 AM EDT ----- Message from Robyn Taylor APRN.CNP sent at 03/18/2025 8:57 PM EDT ----- Please reach out to patient regarding mental health concerns from Dr. Garrett to see if he would like to come in for sooner visit to discuss mental health concerns. We will discuss colon cancer screening in setting of chronic anemia at upcoming July well visit. Robyn Taylor APRN.CNP ----- Message ----- From: Renay Garrett MD Sent: 02/27/2025 11:17 AM EDT To: Robyn Taylor APRN.QAMAR Carlson, I just saw your patient Mr Zhong to establish for the warfarin clinic. He wants me to follow him forhis coumadin but keep following with you as his PCP, which is fine, but he mentioned in his visit that his mental health is poor. Having some passive thoughts of things would be better if he were nothere but no active thoughts of harming himself and did not need to go to the ED, but seems he wouldbenefit from a primary care visit to discuss mental health. I also discussed with him that he should see you for follow up of anemia and should discuss gettingcolon cancer screening now that he is 44 and has anemia. Just wanted to make you aware. Lisa Garrett MD [facility]09-10-2025 Miscellaneous Notes* Telephone Encounter - Eliza Hopkins - 03/20/2025 8:03 AM EDT Called, left voicemail for patient to contact office to schedule appointment. Left detailed messageinforming patient Robyn does have available appointments today and on 03/21/2025 if interested. Eliza Hopkins * Telephone Encounter - Eliza Hopkins - 03/20/2025 8:03 AM EDT ----- Message from Robyn Taylor APRN.SENIOR TECHNICAL ARCHITECT sent at 03/18/2025 8:57 PM EDT ----- Please reach out to patient regarding mental health concerns from Dr. Garrett to see if he would like to come in for sooner visit to discuss mental health concerns. We will discuss colon cancer screening in setting of chronic anemia at upcoming July visit. Robyn Taylor APRN.CNP ----- Message ----- From: Renay Garrett MD Sent: 02/27/2025 11:17 AM EDT To: DARYN Pablo, I just saw your patient Mr Zhong to establish for the warfarin clinic. He wants me to follow him forhis coumadin but keep following with you as his PCP, which is fine, but he mentioned in his visit that his mental health is poor. Having some passive thoughts of things would be better if he were nothere but no active thoughts of harming himself and did not need to go to the ED, but seems he wouldbenefit from a primary care visit to discuss mental health. I also discussed with him that he should see you for follow up of anemia and should discuss gettingcolon cancer screening now that he is 44 and has anemia. Just wanted to make you aware. Lisa Garrett MD [facility] * Telephone Encounter - Colleen Hoffman LPN - 03/19/2025 2:26 PM EDT Per Robyn: Please reach out to patient regarding mental health concerns from Dr. Garrett to see if he would like to come in for sooner visit to discuss mental health concerns. We will discuss colon cancer screening in setting of chronic anemia at upcoming July well visit. Robyn Taylor APRN.QAMAR I attempted to call patient Papi. No answer. I left a voice mail message for patient to return callto office. Colleen Hoffman LPN March 19, 2025 2:27 PM documented in [facility] Telephone encounter Note * Telephone Encounter - Colleen Hoffman LPN - 03/19/2025 2:26 PM EDT Per Robyn: Please reach out to patient regarding mental health concerns from Dr. Garrett to see if he would like to come in for sooner visit to discuss mental health concerns. We will discuss colon cancer screening in setting of chronic anemia at upcoming July well visit. Robyn Taylor APRN.QAMAR I attempted to call patient Papi. No answer. I left a voice mail message for patient to return callto office. Colleen Hoffman LPN March 19, 2025 2:27 PM [facility]09-05-2025 Evaluation note* Diagnosis Onset Date Resolution Status Admit Date Cervical myelopathy with cervical radiculopathy acute March 15, 2025 1:18pm [facility] Work Phone: 1(100) 312-999509-05-2025 Telephone encounter Note* Telephone Encounter - Kacie Jasmine - 03/15/2025 11:31 AM EDT Echo scheduled 04-01-25 2 pm at [id number] Miscellaneous Notes* Telephone Encounter - Kacie Jasmine - 03/15/2025 11:31 AM EDT Echo scheduled 04-01-25 2 pm at [facility] Patient informed documented in this [facility]09-05-2025 History of Present illness Narrative* Erin Morris MD - 03/15/2025 8:45 AM EDT [facility] Cardiology Note Assessment and Plan: # Subaortic membrane: # Aortic valve replacement: Has had 3 sternotomies for separate cardiac surgeries: 12/2018 (subaortic membrane resection), 01/2022 (re-resection of sub- aortic membrane and aortic valve replacement), 12/2024 (aortic valve and ascending aorta replacement via Bentall procedure). Most recent surgical inter vention was due to prosthetic aortic valve degeneration with placement of mechanical Bentall [address] Dao composite graft 12/2024. The aortic anastomosis was aortic root to mid-ascending in review of the operative note. The coronary buttons were reimplanted to the prosthesis. Trivial CAD based on pre-operative cath. Today is euvolemic, on examination his valve has a crisp mechanical click with a very subtly systolic flow murmur that does not suggest any dysfunction of the valve. All prior imaging at our hospitaland [facility] have demonstrated preserved biventricular function - Warfarin, goal INR 2.0-3.0, preferably 2.5 if possible (2020 ACC guidelines) as he does not have any other risk factors that would recommend higher target INR (low Ef, mitral stenosis, atrial fibrillation) - Aspirin 81mg--he does not have a separate indication currently for ASA, warfarin alone is typically sufficient for bileaflet mechanical -- in review of cardiac surgery DC notes from [facility] the medication was continued though not specifically referenced. Will continue for time being and plan on dropping a year out - Echocardiogram - Referral placed to cardiac rehab and strongly encouraged - Strongly counseled vape (and illicit substance) cessation given risk introduction of bacterial pathogens with that habit - Indicated for abx ppx prior to dental procedures - Avoiding beta leodan given junctional rhythm post-op # Ascending aorta repair: With the composite graft at time of aortic valve replacement. Will need interval imaging with echo for proximal ascending aorta # Tricuspid valve repair: Hernandez MC3 tricuspid ring at the time of second cardiac surgery in 2021. History of Present Illness: Luisito Zhong is a 44 y.o. male presenting for evaluation in the cardiology clinic. Luisito was evaluated in follow-up, this is our first visit since his aortic valve and ascending aorta surgery. He is doing better--he had MSK discomfort for several weeks following the surgery and course complicated by pleural effusions, however he has overall improved in recent weeks. Intermittent but not persistent swelling. No orthopnea/PND. He has tried to resume some activity. He is inquiring about expected recovery of functional capacity as he is in the process of applying for disability. He freely admits to using vape daily currently, and did use cocaine a few times in the past month. He is now in a sober living facility in [place] and this is a stable environment, jennifer-based practice that is helping him to avoid substance abuse. 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 Taking warfarin, this is followed via the coumadin clinic in [place]. He is following closely with primary care in that area. Cardiovascular History: Luisito Zhong is a former patient of Dr. Perez who presented to my clinic 08/2024. 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 Cabrera and Dr. Estevez. U nfortunately, not long after this surgical intervention, he had recurring symptoms. Repeat workup, including TTE, LAWSON and CMR demonstrated recurrent subaortic membrane. He sought surgical opinion at [facility], and ultimately underwent repeat surgical intervention on 01/26/[address] Roscoe Arias. That procedure included membrane removal and aortic valve replacement with #25 Inspiris prosthetic aortic valve, as well as tricuspid repair with Hernandez MC3 tricuspid ring. Re-presented to Dr. Perez for follow-up, in 05/2024. At that visit, he reported increasing shortness of breath, his primary symptom with the obstructive LVOT. Echo at OSH demonstrated repeat gradient through the valve in 07/2024; he was re-referred to [facility] and Dr. 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 Pre-op cath was negative for CAD. Cardiovascular Data: Coronary Angiogram: Cath 12/2024 + + IMPRESSION/PLAN + + Impression: -Co-dominant coronary artery system without obstructive CAD. Physical Examination: Vitals: Vitals: 03/15/25 0840 BP: 130/80 BP Location: Right arm Patient Position: Sitting BP Cuff Size: Large adult Pulse: 97 SpO2: 97% Weight: 240 lb 12.8 oz (109 kg) Height: 6' 4 (1.93 m) Body mass index is 29.31 kg/m . Physical Exam: GEN: Comfortable, conversant, on room air Neck: JVD not elevated Heart: Regular, no murmurs Lungs: Clear to auscultation throughout Abd: Soft/nontender Ext: Warm, well-perfused, no edema Neuro: No apparent focal neuro deficit, formal examination deferred Medications: Current Medications[1] Family History and Social History: Family History Family History[2] Social History Social History[3] Chief Complaint: Follow-up, aortic valve replacement Erin Morris MD Cardiology [facility], [place] [id number] p [phone] f [phone] [1] Current Outpatient Medications: Acetaminophen Extra Strength 500 MG tablet, , Disp: , Rfl: albuterol 108 (90 Base) MCG/ACT inhaler, Inhale 2 puffs., Disp: , Rfl: ascorbic acid (Vitamin C) 500 MG tablet, ascorbic acid, vitamin C, (VITAMIN C) 500 mg tablet Indications: Iron deficiency anemia secondary to inadequate dietary iron intake Take vitamin C daily with iron to increase absorption. 90 tablet 3 01/21/2025 Active, Disp: , Rfl: aspirin 81 MG EC tablet, Take 81 mg by mouth daily., Disp: , Rfl: Continuous Blood Gluc Sensor (FreeStyle Carlton 2 Sensor) misc, APPLY SENSOR TO BACK OF UPPER ARM,REMOVE AND REPLACE EVERY 14 DAYS, Disp: 3 each, Rfl: 2 Continuous Blood Gluc Transmit (Dexcom G6 transmitter) misc, Change every 90 days, Disp: , Rfl: DULoxetine (Cymbalta) [address] capsule, Take 30 mg by mouth in the morning., Disp: , Rfl: ergocalciferol (Vitamin D2) 1.25 MG (98653 UT) capsule, Take 1.25 mg by mouth 1 (one) time per week., Disp: , Rfl: escitalopram (Lexapro) 20 MG tablet, Take 1 tablet by mouth in the morning., Disp: , Rfl: ferrous sulfate 325 (65 Fe) MG tablet, ferrous sulfate 325 mg (65 mg iron) tablet Indications: Irondeficiency anemia secondary to inadequate dietary iron intake Take iron daily with vitamin C to increase absorption. 90 tablet 3 01/21/2025 Active, Disp: , Rfl: Glucose Blood (Blood Glucose Test) strip, Test 5 times a day & as needed for symptoms of irregular blood glucose., Disp: , Rfl: glucose blood (OneTouch Verio) test strip, Test 4 times per day. DX:E10.9, Disp: 100 each, Rfl: 3 ibuprofen 800 MG tablet, Take 1 tablet (800 mg) by mouth every 8 hours as needed for moderate pain (4-6)., Disp: 90 tablet, Rfl: 3 insulin lispro (HumaLOG) 100 UNIT/ML injection, Inject insulin continuous via Insulin Pump. Strength: 100 UNIT/ML, Disp: 10 mL, Rfl: 3 levothyroxine (Synthroid, Levoxyl) 125 MCG tablet, TAKE ONE TABLET BY MOUTH EVERY MORNING ON EMPTY STOMACH Strength: 125 mcg, Disp: 90 tablet, Rfl: 1 loratadine (Claritin) 10 MG tablet, Take 10 mg by mouth in the morning., Disp: , Rfl: Ostomy Supplies (Skin Tac Adhesive Barrier Wipe) [facility] [place] 1 each every 14 (fourteen) days., Disp: 50 each, Rfl: 3 traZODone (Desyrel) 100 MG tablet, Take 100 mg by mouth Nightly as needed for sleep., Disp: , Rfl: triamcinolone (Kenalog) 0.1 % cream, , Disp: , Rfl: warfarin (Coumadin) 5 MG tablet, Take 7.5 mg (one and a half tablets) on Tuesday only. All the rest of the days, take one tablet (5 mg) daily., Disp: , Rfl: cholecalciferol (Vitamin D-3) 50 MCG (1999 UT) tablet, Take 1 tablet by mouth in the morning. (Patient not taking: Reported on 03/15/2025), Disp: , Rfl: fluticasone (Flonase) 50 MCG/ACT nasal spray, Administer 1 spray into affected nostril(s)., Disp: ,Rfl: [2] Family History Problem Relation Name Age of Onset Colon cancer Maternal Grandmother No Known Problems Father No Known Problems Mother Other (00643) Sister MS Heart disease Paternal Grandmother [3] Social History Tobacco Use Smoking status: Every Day Smokeless tobacco: Current Tobacco comments: Vaping Substance Use Topics Alcohol use: Not Currently Drug use: Not Currently Types: Cocaine Comment: few slips ups recently caffeine use2 cups of coffee a day documented in this [facility]09-02-2025 Telephone encounter Note* Telephone Encounter - Alyx Hernandez RN - 03/12/2025 12:28 PM EDT LEFT MESSAGE FOR PATIENT TO CALL OFFICE patient needs scheduled for an INR with coumadin clinic [facility]09-02-2025 Miscellaneous Notes* Telephone Encounter - Alyx Hernandez RN - 03/12/2025 12:28 PM EDT LEFT MESSAGE FOR PATIENT TO CALL OFFICE patient needs scheduled for an INR with coumadin clinic * Telephone Encounter - Jaelyn Black RPh - 03/08/2025 5:21 PM EDT [facility] Ambulatory Pharmacy Anticoagulation Clinic Anticoagulation Episode Summary Anticoagulation Care Providers Provider Role Specialty Phone number Renay Garrett MD Referring Internal Medicine/Pediatrics [phone] Luisito Zhong is a 44 year old year old male patient being evaluated today for a Telemanagement visit. Patient is currently on the following anticoagulant(s) Warfarin. Labs Lab Results Component Value Date INR 2.0 (H) 03/07/2025 INR 1.9 (H) 02/22/2025 INR 2.4 (H) 02/06/2025 Lab Results Component Value Date HB 11.9 (L) 01/16/2025 HB 11.0 (L) 01/07/2025 HB 11.5 (L) 12/31/2024 Lab Results Component Value Date HCT 36.9 (L) 01/16/2025 HCT 32.4 (L) 01/07/2025 HCT 34.2 (L) 12/31/2024 Lab Results Component Value Date PLT 476 (H) 01/16/2025 PLT 490 (H) 01/07/2025 PLT 255 12/31/2024 Lab Results Component Value Date CREAT 0.81 01/16/2025 CREAT 0.93 01/07/2025 CREAT 0.80 12/31/2024 No components found for: TBILI3 Lab Results Component Value Date ALT 24 01/16/2025 ALT 31 01/07/2025 ALT 29 12/31/2024 Lab Results Component Value Date AST 33 01/16/2025 AST 38 01/07/2025 AST 32 12/31/2024 Estimated Creatinine Clearance: 156.5 mL/min (based on SCr of 0.81 mg/dL). ALLERGIES Allergen Reactions Hydromorphone Itching Tramadol Unknown Burning skin Indication for Warfarin: Anticoagulation management encounter long-term current use of anticoagulant therapy History of mechanical aortic valve replacement long-term (current) use of anticoagulants Anticoagulation Episode Summary Current INR goal: 2.0-3.0 Assessment: INR result of 2.0 is therapeutic Plan: Current Warfarin Dosing As of 03/08/2025 Full warfarin instructions: 7.5 mg every Wed; 5 mg all other days Sent mychart message Advised patient to continue current weekly dose as noted above Next point of care INR check scheduled on 03/22/2025 Message sent to [place] team to schedule appointment Patient advised to call the PAC with any medication changes, bleeding/bruising concerns, recent changes in vitamin k consumption, if any procedures are coming up, if they have been ill or in the hospital, and if they have missed any doses of warfarin. Jaelyn Black RPh Clinical Pharmacist, Pharmacy Anticoagulation Clinic Pharmacy Anticoagulation Clinic Pager: [phone]. documented in this encounterC[facility] Telephone encounter Note * Telephone Encounter - Jaelyn Black RPh - 03/08/2025 5:28 PM EDT Per CCAMP: Table 24. Target INR by Indication Antiphospholipid syndrome (presence of lupus anticoagulant or antiphospholipid antibodies) 2.0 - 3.0 Left ventricular assist device (Heartware, HeartMate 2, HeartMate 3) 2.0 - 3.0 Mechanical valve replacement Aortic position* 2.0 - 3.0 Aortic position (On-X valve, 3 months after surgery) 1.5 - 2.0 Mitral position 2.5 - 3.5 Stroke prevention in the setting of atrial fibrillation 2.0 - 3.0 Treatment of DVT or PE 2.0 - 3.0 VTE prophylaxis following total hip arthroplasty, total knee arthroplasty, or hip fracture surgery 2.0 - 3.0 * Goal INR 2.5 - 3.5 in patients with mechanical aortic valve with additional risk factors (i.e., AF, previous thromboembolism, LV dysfunction, or hypercoagulable conditions) or an older-generation mechanical (e.g., [id number]). INR goal of 2.0-3.0 for patient is appropriate given no other reported risk factors. Will confirm goal INR with cardiology and referring. Jaelyn Black PharmD [facility]08-29-2025 Miscellaneous Notes* Telephone Encounter - Jaelyn Black RPh - 03/08/2025 5:28 PM EDT Per CCAMP: Table 24. Target INR by Indication Antiphospholipid syndrome (presence of lupus anticoagulant or antiphospholipid antibodies) 2.0 - 3.0 Left ventricular assist device (Heartware, HeartMate 2, HeartMate 3) 2.0 - 3.0 Mechanical valve replacement Aortic position* 2.0 - 3.0 Aortic position (On-X valve, 3 months after surgery) 1.5 - 2.0 Mitral position 2.5 - 3.5 Stroke prevention in the setting of atrial fibrillation 2.0 - 3.0 Treatment of DVT or PE 2.0 - 3.0 VTE prophylaxis following total hip arthroplasty, total knee arthroplasty, or hip fracture surgery 2.0 - 3.0 * Goal INR 2.5 - 3.5 in patients with mechanical aortic valve with additional risk factors (i.e., AF, previous thromboembolism, LV dysfunction, or hypercoagulable conditions) or an older-generation mechanical (e.g., [id number]). INR goal of 2.0-3.0 for patient is appropriate given no other reported risk factors. Will confirm goal INR with cardiology and referring. Jaelyn Black PharmD * Telephone Encounter - Robyn Taylor APRN.CNP - 03/08/2025 12:32 PM EDT Thank you! Robyn Taylor APRN.CNP * Telephone Encounter - Colleen Hoffman LPN - 03/08/2025 10:53 AM EDT I spoke with patient Papi today and advised him of all information regarding keeping Robyn Taylor APRN.CNP as his primary care provider and continuing INR testing at the [place] [facility]. Papi is agreeable to all. The February 2026 appointment has been cancelled. Colleen Hoffman LPN March 08, 2025 10:55 AM * Telephone Encounter - Robyn Taylor APRN.CNP - 03/07/2025 7:59 PM EDT Carolina: Thank you for your message. The office number is [phone] option 4 to reach corporate receptionist. Colleen: Please attempt to notify patient of above information since Carolina was unable to reach him. If unable to reach patient, please send letter. He may cancel his February 2026 well visit scheduled with Dr. Renay Garrett in [place] if he would like me to remain his PCP. Thank you. Robyn Taylor APRN.QAMAR * Telephone Encounter - Carolina Lara RN - 03/07/2025 4:22 PM EDT Much confusion with this patient. Attempted to reach pt again today with no answer. When this nursespoke with pt last evening, he wanted to keep Robyn Taylor as his PCP. Someone somewhere told himthat he needed to have a doctor in [place] to handle his Coumadin/anticoagulation. Pt has been coming to the [facility] here in [place] and seeing nurse Alyx. Talked with Alyx and she states that pt's PCP had referred pt to the [facility] pharmacy and that is who is managing pt's Coumadin/anticoagulation in coordination with Alyx. Pt does not need any other provider to monitor anticoagulation/Coumadin. Pt's PCP will remain Robyn Taylor and he can continue to come and have his INRs done with Alyx at the [place] [facility] and have his anticoagulation/Coumadin monitored by the [facility] pharmacy. Pt does NOT need to establish with any other providers here in [place] and does not need to see Dr. Renay Garrett anymore. LM on pt's cell that as we discussed last evening, bautista keep his current PCP Robyn Taylor. Attempted to contact her office several times throughout the day but never got to speak with anyone-no matter which number we hit, all of them went to [facility]. Will route this msg to that office to hopefully clarify that pt does not need to establish with anyone else at this time or see Dr. Garrett anymore. * Telephone Encounter - Colleen Hoffman LPN - 03/07/2025 11:14 AM EDT I called [facility] and spoke with triage nurse Jens to give instructions for the INR test result of 2.0 today. Jens said that their doctors will not manage Coumadin dosing if patient isseeing another provider. Jens is going to consult with Renay Garrett MD and then report back once shegets an answer. Patient has multiple appointments scheduled as follows: 07/16/2025 with Robyn Taylor for annual wellness and then on 02/28/2026 for an annual wellness with Renay Garrett. He also had an appointment with the [place] [facility] today at 12:00 pm Colleen Hoffman LPN March 07, 2025 11:15 AM documented in this encounterC[facility]08-[facility]-2025 Telephone encounter Note * Telephone Encounter - Wayne Jaelyn [facility] - 03/08/2025 5:21 PM EDT [facility]ulatory Pharmacy Anticoagulation Clinic Anticoagulation Episode Summary Anticoagulation Care Providers Provider Role Specialty Phone number Renay Garrett MD Referring Internal Medicine/Pediatrics [phone] Luisito Zhong is a 44 year old year old male patient being evaluated today for a Telemanagement visit. Patient is currently on the following anticoagulant(s) Warfarin. Labs Lab Results Component Value Date INR 2.0 (H) 03/07/2025 INR 1.9 (H) 02/22/2025 INR 2.4 (H) 02/06/2025 Lab Results Component Value Date HB 11.9 (L) 01/16/2025 HB 11.0 (L) 01/07/2025 HB 11.5 (L) 12/31/2024 Lab Results Component Value Date HCT 36.9 (L) 01/16/2025 HCT 32.4 (L) 01/07/2025 HCT 34.2 (L) 12/31/2024 Lab Results Component Value Date PLT 476 (H) 01/16/2025 PLT 490 (H) 01/07/2025 PLT 255 12/31/2024 Lab Results Component Value Date CREAT 0.81 01/16/2025 CREAT 0.93 01/07/2025 CREAT 0.80 12/31/2024 No components found for: TBILI3 Lab Results Component Value Date ALT 24 01/16/2025 ALT 31 01/07/2025 ALT 29 12/31/2024 Lab Results Component Value Date AST 33 01/16/2025 AST 38 01/07/2025 AST 32 12/31/2024 Estimated Creatinine Clearance: 156.5 mL/min (based on SCr of 0.81 mg/dL). ALLERGIES Allergen Reactions Hydromorphone Itching Tramadol Unknown Burning skin Indication for Warfarin: Anticoagulation management encounter long term current use of anticoagulant therapy History of mechanical aortic valve replacement long-term (current) use of anticoagulants Anticoagulation Episode Summary Current INR goal: 2.0-3.0 Assessment: INR result of 2.0 is therapeutic Plan: Current Warfarin Dosing As of 03/08/2025 Full warfarin instructions: 7.5 mg every Wed; 5 mg all other days Sent infibond message Advised patient to continue current weekly dose as noted above Next point of care INR check scheduled on 03/22/2025 Message sent to [place] team to schedule appointment Patient advised to call the PAC with any medication changes, bleeding/bruising concerns, recent changes in vitamin k consumption, if any procedures are coming up, if they have been ill or in the hospital, and if they have missed any doses of warfarin. Jaelyn Black RPh Clinical Pharmacist, [facility] Pager: [phone]. [facility]08-29-2025 Telephone encounter Note* Telephone Encounter - Robyn Taylor APRN.CNP - 03/08/2025 12:32 PM EDT Thank you! Robyn Taylor APRN.CNP [facility]08-29-2025 Telephone encounter Note* Telephone Encounter - Colleen Hoffman LPN - 03/08/2025 10:53 AM EDT I spoke with patient Papi today and advised him of all information regarding keeping Robyn Taylor APRN.CNP as his primary care provider and continuing INR testing at the [place] [facility]. Papi is agreeable to all. The February 2026 appointment has been cancelled. Colleen Hoffman LPN March 08, 2025 10:55 AM [facility]08-28-2025 Telephone encounter Note* Telephone Encounter - Robyn Taylor APRN.CNP - 03/07/2025 7:59 PM EDT Carolina: Thank you for your message. The office number is [phone] option 4 to reach corporate receptionist. Colleen: Please attempt to notify patient of above information since Carolina was unable to reach him. If unable to reach patient, please send letter. He may cancel his February 2026 well visit scheduled with Dr. Renay Garrett in [place] if he would like me to remain his PCP. Thank you. Robyn Taylor APRN.QAMAR [facility]08-28-2025 Telephone encounter Note* Telephone Encounter - Carolina Lara RN - 03/07/2025 4:31 PM EDT Much confusion with this patient. Attempted to reach pt again today with no answer. When this nursespoke with pt last evening, he wanted to keep Robyn Taylor as his PCP. Someone somewhere told himthat he needed to have a doctor in [place] to handle his Coumadin/anticoagulation. Pt has been coming to the [facility] here in [place] and seeing nurse Alyx. Talked with Alyx and she states that pt's PCP had referred pt to the [facility] and that is who is managing pt's Coumadin/anticoagulation in coordination with Alyx. Pt does not need any other provider to monitor anticoagulation/Coumadin. Pt's PCP will remain Robyn Taylor and he can continue to come and have his INRs done with Alyx at the [place] [facility] and have his anticoagulation/Coumadin monitored by the [facility]. Pt does NOT need to establish with any other providers here in [place] and does not need to see Dr. Renay Garrett anymore. LM on pt's cell that as we discussed last evening, bautista keep his current PCP Robyn Taylor. Attempted to contact her office several times throughout the day but never got to speak with anyone-no matter which number we hit, all of them went to [employer]. Will route this msg to that office to hopefully clarify that pt does not need to establish with anyone else at this time or see Dr. Garrett anymore. [facility]08-28-2025 Miscellaneous Notes* Telephone Encounter - [place] Lara RN - 03/07/2025 4:31 PM EDT Much confusion with this patient. Attempted to reach pt again today with no answer. When this nursespoke with pt last evening, he wanted to keep Robyn Taylor as his PCP. Someone somewhere told himthat he needed to have a doctor in [place] to handle his Coumadin/anticoagulation. Pt has been coming to the [facility] here in [place] and seeing nurse Alyx. Talked with Alyx and she states that pt's PCP had referred pt to the [facility] pharmacy and that is who is managing pt's Coumadin/anticoagulation in coordination with Alyx. Pt does not need any other provider to monitor anticoagulation/Coumadin. Pt's PCP will remain Robyn Taylor and he can continue to come and have his INRs done with Alyx at the [place] [facility] and have his anticoagulation/Coumadin monitored by the [facility]. Pt does NOT need to establish with any other providers here in [place] and does not need to see Dr. Renay Garrett anymore. LM on pt's cell that as we discussed last evening, heckvng keep his current PCP Robyn Taylor. Attempted to contact her office several times throughout the day but never got to speak with anyone-no matter which number we hit, all of them went to [employer]. Will route this msg to that office to hopefully clarify that pt does not need to establish with anyone else at this time or see Dr. Garrett anymore. * Telephone Encounter - Afshin Schneider RN - 03/07/2025 11:12 AM EDT Verito - nurse- from Viki Taylor Np office at [facility], phoned to report patient's INR 2.0 today on their Coagucheck INR machine. INR goal is 2.0-3.0. Reports Brinda Taylor is referring INR checks back to Dr. Garrett. See provider's ov notes from today. Reports pt reported he missed 2 doses of coumadin last week. Reports no unusual bleeding or bruising. [facility] Telephone encounter Note * Telephone Encounter - Carolina Lara RN - 03/07/2025 4:22 PM EDT Much confusion with this patient. Attempted to reach pt again today with no answer. When this nursespoke with pt last evening, he wanted to keep Robyn Taylor as his PCP. Someone somewhere told himthat he needed to have a doctor in [place] to handle his Coumadin/anticoagulation. Pt has been coming to the [facility] here in [place] and seeing nurse Alyx. Talked with Alyx and she states that pt's PCP had referred pt to the [facility] pharmacy and that is who is managing pt's Coumadin/anticoagulation in coordination with Alyx. Pt does not need any other provider to monitor anticoagulation/Coumadin. Pt's PCP will remain Robyn Taylor and he can continue to come and have his INRs done with Alyx at the [place] [facility] and have his anticoagulation/Coumadin monitored by the [facility]. Pt does NOT need to establish with any other providers here in [place] and does not need to see Dr. Renay Garrett anymore. LM on pt's cell that as we discussed last evening, bautista keep his current PCP Robyn Taylor. Attempted to contact her office several times throughout the day but never got to speak with anyone-no matter which number we hit, all of them went to [employer]. Will route this msg to that office to hopefully clarify that pt does not need to establish with anyone else at this time or see Dr. Garrett anymore. [facility]08-28-2025 Telephone encounter Note* Telephone Encounter - Colleen Hoffman LPN - 03/07/2025 11:14 AM EDT I called [facility] and spoke with triage nurse Jens to give instructions for the INR test result of 2.0 today. Jens said that their doctors will not manage Coumadin dosing if patient isseeing another provider. Jens is going to consult with Renay Garrett MD and then report back once shegets an answer. Patient has multiple appointments scheduled as follows: 07/16/2025 with Robyn Taylor for annual wellness and then on 02/28/2026 for an annual wellness with Renay Garrett. He also had an appointment with the [place] [facility] today at 12:00 pm Colleen Hoffman LPN March 07, 2025 11:15 AM [facility]08-28-2025 Telephone encounter Note* Telephone Encounter - Asfhin Schneider RN - 03/07/2025 11:12 AM EDT Verito - nurse- from Viki Taylor Np office at [facility], phoned to report patient's INR 2.0 today on their Coagucheck INR machine. INR goal is 2.0-3.0. Reports Brinda Taylor is referring INR checks back to Dr. Garrett. See provider's ov notes from today. Reports pt reported he missed 2 doses of coumadin last week. Reports no unusual bleeding or bruising. [facility]08-28-2025 History of Present illness Narrative* Robyn Taylor APRN.QAMAR - 03/07/2025 9:05 AM EDT This note was created using [employer] technology with patient consent. Subjective The patient is a 44-year-old male with history of aortic stenosis status-post recent mechanical aortic valve placement, presenting for evaluation of exertional dyspnea and ankle edema. Dyspnea: - Luisito Zhong noted dyspnea on exertion when attempting to return to work this past week. - Dyspnea was present prior to returning to work, particularly when ascending stairs. - Denies dyspnea at rest. - Reports improvement in fatigue and breathing compared to pre-surgery status (placement of mechanical aortic valve on 12/25/[address] 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 - Iron deficient; reports dizziness with position changes; recently prescribed oral iron replacement with vitamin C to increase absorption; reports compliance. - No cardiac rehab post-surgery; did participate in cardiac rehab after initial porcine valve placement in 2021. Lower Extremity Edema: - Mild ankle edema observed; symptoms noted last week after increased periods of standing during work. - Edema resolves by morning after rest. - No significant weight gain or increase from baseline exertional dyspnea noted; weight stable at 242 lbs since last visit on 02/13. Aortic Valve Replacement: - Mechanical aortic valve replacement performed on 12/[address] Beavers; 10 weeks post-op. 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 - Current INR is 2.0; goal INR 2.0-3.0; previous readings include 1.9 on 02/22, 2.4 on 02/06, and 2.8on 01/23. - Luisito missed a couple of doses of warfarin last week due to work schedule and change in routine. 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 Has been clean since 06/21/2018. 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 12/25/2024 Subaortic membrane (HCC) with stenosis Tachycardia 02/05/2025 Tetrahydrocannabinol (THC) use disorder, mild, in sustained remission, in controlled environment, abuse Type 1 diabetes mellitus with diabetic polyneuropathy ([facility]) ACTIVE PROBLEM LIST Impingement Syndrome of Right Shoulder Type 1 Diabetes Mellitus With Diabetic Polyneuropathy ([facility]) Acquired Hypothyroidism Former Smoker Subaortic Membrane ([facility]) Mitral Regurgitation Alcohol Abuse History of Drug Abuse ([facility]) Mixed Anxiety and Depressive Disorder Dyspnea Dyslipidemia Obesity (Bmi 30-39.9) Discharge Planning Issues Atelectasis Post-Op Pain Exertional Dyspnea Tricuspid Regurgitation Aortic Regurgitation Obesity, Class II, Bmi 35-39.9 Hypervolemia Encounter for Support and Coordination of Transition of Care Nicotine use disorder, F17.2 History of Asthma History of Cocaine Use Mixed Hyperlipidemia Hypoglycemia Chronic Right Shoulder Pain Pain in Joint, Shoulder Region Substance Abuse ([facility]) Vitamin D Deficiency Type 1 Diabetes Mellitus Without Complication ([facility]) Homeless Cocaine Abuse ([facility]) Aortic Valve Disorder Class 1 Drug-Induced Obesity With Serious Comorbidity and Body Mass Index (Bmi) of 31.0 to 31.9 in Adult Pre-Op Testing Crack Cocaine Use Postoperative Pulmonary Edema ([facility]) S/P Avr (Aortic Valve Replacement) Coagulopathy ([facility]) Stress Hyperglycemia Anticoagulation Management Encounter Type 1 Diabetes Mellitus With Hyperglycemia ([facility]) Insulin Pump in Place Obesity, Class I, Bmi 30-34.9 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 Current Use of Anticoagulant Therapy Chronic Anemia Overweight With Body Mass Index (Bmi) of 29 to 29.9 in Adult History of Mechanical Aortic Valve Replacement Correction (Current) Use of Anticoagulants Herniation of Intervertebral Disc of Cervical Region Presence of Other Heart-Valve Replacement Iron Deficiency Anemia Secondary to Inadequate Dietary Iron Intake Cognitive Decline Numbness of Right Foot Peripheral Vascular Disease Peripheral Edema History of Aortic Valve Stenosis Current Outpatient Medications Medication Sig Dispense Refill warfarin (COUMADIN) 5 mg tablet Take 7.5 mg (one and a half tablets) on Tuesday only. All the rest of the days, take one tablet (5 mg) daily. 30 tablet 5 albuterol HFA (PROVENTIL HFA, VENTOLIN HFA) 90 mcg/actuation inhaler Inhale 2 puffs as instructed every 4 hours as needed. 18 g 3 umeclidinium-vilanterol (ANORO ELLIPTA) 62.5-25 mcg/actuation inhaler Inhale 1 inhalation as instructed once daily. 45 each 3 ferrous sulfate 325 mg (65 mg iron) tablet Take iron daily with vitamin C to increase absorption. 90 tablet 3 ascorbic acid, vitamin C, (VITAMIN C) 500 mg tablet Take vitamin C daily with iron to increase absorption. 90 tablet 3 ciclopirox (LOPROX) 0.77 % cream APPLY TOPICALLY TO THE AFFECTED AREA TWICE DAILY NEEDED FOR RASH levothyroxine (SYNTHROID) 150 mcg tablet Take 1 tablet by mouth daily before breakfast. acetaminophen (TYLENOL) 500 mg tablet Take 1-2 tablets by mouth every 6 hours as needed for pain. Do not exceed 4000mg in 24 hours aspirin 81 mg chewable tablet Take 1 tablet by mouth once daily. 30 tablet 2 insulin lispro (HUMALOG U-100 INSULIN) 100 unit/mL injection Continue insulin pump with home settings Home pump settings: Medtronic 780G, Humalog Basal Rate: 00:00 = 1.25 units/hr 4:00 = 1.30 units/hr 7:00 = 1.50 units/hr 11:00 = 1.60 units/hr 18:00 = 1.40 units/hr 23:00 = 1.20 units/hr Insulin:Carbohydrate ratio: 00:00 1 units per 8.5 g carbohydrate 17:00 1 units per 7 g carbohydrate Correction bolus: 1 unit insulin lowers glucose 35 mg/dL, correct to a target blood glucose of 110-130 mg/dL cholecalciferol, Vitamin D3, (VITAMIN D3) 1,250 mcg (50,000 unit) cap capsule Take 50,000 Units by mouth one time a week. traZODone (DESYREL) 100 mg tablet Take 100 mg by mouth daily at bedtime. rosuvastatin (CRESTOR) 10 mg tablet Take 1 tablet by mouth daily at bedtime. 90 tablet 3 DULoxetine (CYMBALTA) 30 mg capsule Take 1 capsule by mouth once daily. 90 capsule 3 escitalopram oxalate (LEXAPRO) 20 mg tablet Take 1 tablet by mouth once daily. 90 tablet 3 DEXCOM G7 SENSOR xenia (Patient not taking: Reported on 02/28/2025) No current facility-administered medications for this visit. Medications were reviewed and verified. If pain assessment is 0, no action needed. If pain assessment is positive, please see assessment and plain. SOCIAL HISTORY[1] FAMILY HISTORY Problem Relation Age of Onset No Known Problems Mother No Known Problems Father No Known Problems Sister No Known Problems Sister Cancer Maternal Grandmother Heart Attack Paternal Grandfather Labs: (03/07) INR: 2.0 (02/22) INR: 1.9 (02/06) INR: 2.4 (01/23) INR: 2.8 (01/16/2025) - RBC: 4.18 - Hemoglobin: 11.9 - Hematocrit: 36.9 - Platelets: 476 - Iron: 25 - Total Iron Binding Capacity: 310 - Transferrin: 8.1 - Ferritin: 137 Review of Systems Cardiovascular: (+) ankle swelling, (-) chest pain, (-) tachycardia, (-) palpitations, (-) syncope,(-) presyncope Respiratory: (+) baseline exertional dyspnea, (+) mild exercise intolerance, (-) dyspnea at rest Neurological: (+) postural dizziness Objective BP 122/74 Pulse 92 Temp (Src) 97.8 (Temporal) Resp 16 Ht 6' 4 (1.93m) Wt 242 lb 12.8 oz (110.1kg) SpO2 98% BMI 29.57 kg/(m^2). Physical Exam GENERAL: Alert and oriented, no acute distress. Overweight. SKIN: Unremarkable, no rash or skin lesions. HEAD: Normocephalic. EYES: PERRLA, EOMI, conjunctiva clear. EARS: External ears normal, canals clear, TM's normal. NOSE/SINUSES: Nares normal. Septum midline. OROPHARYNX: Lips, mucosa, and tongue normal, good dentition. No oral lesions noted. NECK: Supple, no lymphadenopathy, normal thyroid, no carotid bruits. LUNGS: Clear to auscultation bilaterally, no wheezes/rhonchi/rales/cough. No evidence of acute respiratory distress or conversational dyspnea. HEART: Regular rate and rhythm. Mechanical valve click noted. No murmurs. No ectopy. ABDOMEN: Soft, non-tender without palpable mass or hepatosplenomegaly. Normal bowel sounds present. EXTREMITIES: Normal, no deformities, no skin discoloration, no edema. NEURO: Awake, alert and oriented x3, cranial nerves II-XII grossly intact, normal gait, no involuntary motions. PSYCHIATRIC: Calm, cooperative, and conversational with appropriate affect. Assessment & Plan 1. long-term current use of anticoagulant therapy (Z79.01) 2. History of mechanical aortic valve replacement (Z95.2) 3. S/P AVR (aortic valve replacement) (Z95.2) - INR today 2.0; previous readings: 1.9 on 02/22, 2.4 on 02/06, 2.8 on 01/23. - Goal INR range documented during recent hospitalization for insertion for mechanical aortic valveplacement is 2.0-3.0, though 2.5-3.5 is typical for mechanical valves; advised patient to discuss potential need to increase goal INR with cardiology due to presence of mechanical valve. - Missed warfarin doses last week; educated on importance of strict adherence to anticoagulation regimen to avoid subtherapeutic INR and increased thromboembolic risk in considering presence of mechanical valve. - Heart sounds normal with audible mechanical valve click; breath sounds are clear; no evidence of pulmonary congestion or consolidation on exam. - Advised to maintain monthly INR checks if therapeutic; will notify [place] [facility] and managing provider Dr. Renay Garrett of current INR (visit note forwarded). - Follow-up with cardiology (Dr. Morris) on March 15 to review INR range and consider cardiacrehab for exercise intolerance (visit note forwarded). - Advised to notify detective homicide squad and seek urgent care if severe swelling, shortness of breath at rest, or rapid weight gain (>5 lbs/day) occurs. 4. Nonrheumatic aortic valve stenosis (I35.0) 5. Exertional dyspnea (R06.09) 6. Peripheral edema (R60.0) - Increased frequency of exertional dyspnea and mild ankle edema likely related to recent return towork and post-surgical deconditioning. - No evidence of acute heart failure; weight stable at 242 lbs, no edema or signs of pulmonary congestion on exam today. - Advised to monitor for worsening symptoms and to rest as needed during periods of exertion. - Discussed potential benefit of cardiac rehab to improve exercise tolerance; to be addressed with cardiology at upcoming visit. 7. Iron deficiency anemia secondary to inadequate dietary iron intake (D50.8) - Iron deficiency anemia may be contributing to recent increase in frequency of dyspnea and fatigue. - Patient recently started on iron supplementation with vitamin C; repeat labs planned for mid-April. - Educated on slow positional changes to minimize dizziness. 8. Type 1 diabetes mellitus with diabetic polyneuropathy (HCC) (E10.42) - EMG and nerve conduction study in arms scheduled for 03/13 at [facility] per portfolio manager,Dr. Desai. - Follow-up with Dr. Marysol Cardoza ([facility] Neuromuscular Specialist) on 03/12 (visit note forwarded). - Advised to sign release of information for test results to be sent to Dr. Cardoza. Luisito Zhong will return in 4 month(s) for AWV or sooner as needed. Discussed need for continued follow-up with all specialist providers, taking all medications as prescribed, increasing activity level as tolerated, and lowering sodium and processed food intake at today's visit. Patient instructed to call the office or send a message via Medium with any questions related to this visit. Please Note: The patient consented to the use of [email or web address] software for draft documentation of thevisit consistent with [facility] s Notice of Privacy Practices. Portions of this office note have been created using [employer], a speech recognition software program, and may contain errors including punctuation, grammar, spelling, gender, and inappropriate words or phrases that pertain to the system. DATE: March 07, 2025 SIGNATURE: Robyn Taylor APRN.CNP [1] Social History Tobacco Use Smoking status: Former Current packs/day: 0.00 Average packs/day: 0.5 packs/day for 25.0 years (12.5 ttl pk-yrs) Types: Cigarettes Start date: 11/1996 Quit date: 11/2021 Years since quittin.3 Smokeless tobacco: Never Tobacco comments: nicotine lozenges daily Vaping Use Vaping status: Some Days Substances: Nicotine, Flavoring Devices: Disposable Substance Use Topics Alcohol use: Not Currently Drug use: Not Currently Types: Crack Cocaine * Colleen Hoffman LPN - 03/06/2025 4:47 PM EDT Papi is here today due to mild shortness of breath on exertion This has been happening since his heart surgery December 25 Patient goes to the [facility] in [place] he missed a couple dose of his medication last week Patient is asking if he can get an INR test done today because he cannot make it to the [place] [facility] for a couple of weeks Per Robyn patient does have a standing order for POC INR testing INR done in office today (result 2.0) with instructions per Robyn for patient contact the [facility]in (anticoagulant) Clinic in [place] for dosing instructions No refills needed Colleen Hoffman LPN March 07, 2025 8:31 AM [id number] documented in this encounterC[facility]08-28-2025 NoteHNO ID: [id number] Author: ROBYN TAYLOR APRN.SENIOR TECHNICAL ARCHITECT Service: ? Author Type: Nurse Practitioner Type: Progress Notes Filed: 03/07/2025 10:48 Note Text: This note was created using [employer] technology with patient consent. Subjective The patient is a 44-year-old male with history of aortic stenosis status-post recent mechanical aortic valve placement, presenting for evaluation of exertional dyspnea and ankle edema. Dyspnea: - Luisito Zhong noted dyspnea on exertion when attempting to return to work this past week. - Dyspnea was present prior to returning to work, particularly when ascending stairs. - Denies dyspnea at rest. - Reports improvement in fatigue and breathing compared to pre-surgery status (placement of mechanical aortic valve on 12/25/[address] 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 - Iron deficient; reports dizziness with position changes; recently prescribed oral iron replacement with vitamin C to increase absorption; reports compliance. - No cardiac rehab post-surgery; did participate in cardiac rehab after initial porcine valve placement in 2021. Lower Extremity Edema: - Mild ankle edema observed; symptoms noted last week after increased periods of standing during work. - Edema resolves by morning after rest. - No significant weight gain or increase from baseline exertional dyspnea noted; weight stable at 242 lbs since last visit on 02/13. Aortic Valve Replacement: - Mechanical aortic valve replacement performed on 12/[address] Beavers; 10 weeks post-op. 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 - Current INR is 2.0; goal INR 2.0-3.0; previous readings include 1.9 on 02/22, 2.4 on 02/06, and 2.8 on 01/23. - Luisito missed a couple of doses of warfarin last week due to work schedule and change in routine. PAST MEDICAL HISTORY Diagnosis Date Acquired hypothyroidism Alcohol abuse sober since 2013 Anxiety and depression 04/04/2019 Cocaine abuse in remission ([facility]) last used 10/17/2014 Ex-smoker Ex-smoker Started at the age of 15 up to 1 PPD and quit 07/2018 Frozen shoulder 03/12/2014 History of drug abuse ([facility]) 04/04/2019 Cocaine and marijuana. Has been clean since 06/21/2018. 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 Tachycardia 02/05/2025 Tetrahydrocannabinol (THC) use disorder, mild, in sustained remission, in controlled environment, abuse Type 1 diabetes mellitus with diabetic polyneuropathy ([facility]) ACTIVE PROBLEM LIST Impingement Syndrome of Right Shoulder Type 1 Diabetes Mellitus With Diabetic Polyneuropathy ([facility]) Acquired Hypothyroidism Former Smoker Subaortic Membrane ([facility]) Mitral Regurgitation Alcohol Abuse History of Drug Abuse ([facility]) Mixed Anxiety and Depressive Disorder Dyspnea Dyslipidemia Obesity (Bmi 30-39.9) Discharge Planning Issues Atelectasis Post-Op Pain Exertional Dyspnea Tricuspid Regurgitation Aortic Regurgitation Obesity, Class II, Bmi 35-39.9 Hypervolemia Encounter for Support and Coordination of Transition of Care Nicotine use disorder, F17.2 History of Asthma History of Cocaine Use Mixed Hyperlipidemia Hypoglycemia Chronic Right Shoulder Pain Pain in Joint, Shoulder Region Substance Abuse ([facility]) Vitamin D Deficiency Type 1 Diabetes Mellitus Without Complication ([facility]) Homeless Cocaine Abuse ([facility]) Aortic Valve Disorder Class 1 Drug-Induced Obesity With Serious Comorbidity and Body Mass Index (Bmi) of 31.0 to 31.9 in Adult Pre-Op Testing Crack Cocaine Use Postoperative Pulmonary Edema ([facility]) S/P Avr (Aortic Valve Replacement) Coagulopathy ([facility]) Stress Hyperglycemia Anticoagulation Management Encounter Type 1 Diabetes Mellitus With Hyperglycemia ([facility]) Insulin Pump in Place Obesity, Class I, Bmi 30-34.9 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 Current Use of Anticoagulant Therapy Chronic Anemia Overweight With Body Mass Index (Bmi) of 29 to 29.9 in Adult History of Mechanical Aortic Valve Replacement Correction (Current) Use of Anticoagulants Herniation of Intervertebral Disc of Cervical Region Presence of Other Heart-Valve Replacement Iron Deficiency Anemia Secondary to Inadequate Dietary Iron Intake Cognitive Decline Numbness of Right Foot Peripheral Vascular Disease Peripheral Edema History of Aortic Valve Stenosis Current Outpatient Medications Medication Sig Dispense Refill warfarin (COUMADIN) 5 mg tablet Take 7.5 mg (one and a half tablets) on Tuesday only. All the rest of the days, take one tablet (5 mg) daily. 30 tablet 5 albuterol HFA (PROVENTIL HFA, VENTOLIN HFA) 90 mcg/actuation inhaler Inhal (more content not included)...[facility]08-28-2025 Instructions* Patient Instructions* Robyn Taylor APRN.SENIOR TECHNICAL ARCHITECT - 03/07/2025 8:59 AM EDT - Continue taking your warfarin (Coumadin) exactly as prescribed and avoid missing doses. - Bring today s INR result (2.0) to the Coumadin clinic and discuss with them and Dr. Morris whether your target range should be adjusted. - Continue your daily iron supplement with vitamin C as directed. - When you stand up from lying or sitting, move slowly: sit up, pump your legs briefly, then stand to help prevent dizziness. - At your March [address] Morris, discuss: - Raising your INR target range (for example, to 2.5-3.5) - Starting cardiac rehab to improve your exercise tolerance - Sign a medical release at check-out so Dr. Morris can fax your visit notes to our office (fax [phone]). - See Dr. Marysol Cardoza on March 12 and sign a release for [facility] to send your test results. Your neuropathy and nerve conduction tests are scheduled there on March 13. - Monitor for any of the following and contact your detective homicide squad or go to urgent care/ER if they occur: - Severe shortness of breath or inability to perform minimal activity (for example, walking to the bathroom) - Swelling that worsens or does not improve after rest - Sudden weight gain of more than 5 pounds in one day - Plan to return for your routine well visit on July 16, 2025. Take all medications as prescribed. Continue to follow with specialist providers. Healthy diet and regular aerobic exercise recommended. Please call the office at [phone] Option 4 or send a direct message via Venu[employer]art with any questions related to your visit today. Time throughout the day is reserved for patients with scheduled appointments. Please kindly allow 2-3 business days for staff to respond to phone calls or Venuuhart messages. [facility] Telephone encounter Note * Telephone Encounter - Carolina Lara RN - 03/06/2025 6:02 PM EDT Pt asking what time of the day should pt take his Coumadin? Please see other phone encounter of today. Some confusion as to who pt's PCP is and who is following his INR orders and prescribing his Coumadin. Discussed with pt that if Dr. Renay Garrett is going to be following his INR and prescribing Coumadin that it would be better if she was also his PCP so thatwhen she is out of the office, the other providers can order medications or see him as needed. Discussed with pt the importance of taking his Coumadin on a daily basis at around the same time every day. Informed pt of chance of blood clots due to his new mechanical valve he just had put in December 2024. Informed of what can happen if he gets a blood clot. Pt has not been taking his Coumadin consistently. States he was out of the area and did not have his medication with him so he has missed several doses. After much discussion with pt, he is going to have Dr. Renay Garrett as PCP, continue with Alyx at [facility] for INR checks and will keep better track of his medication and taking it as directed. Pt states he is currently taking 5 mg of Coumadin daily except on Wednesdays, he takes 7.5 mg (one and a half tablets). Pt would like to cancel his [facility] appt for tomorrowas he has an appt in the [employer] with Brinda Crain. He will have her do a fingerstick INR and report it to Dr. Garrett. Pt took his last dose of Coumadin today and needs new script sent to [facility] in [place]. Discussed with pt also if he would be interested in the [facility] clinic pool run by pharmacists. Atthis time, he will continue with Dr. Garrett. [facility]08-27-2025 Telephone encounter Note* Telephone Encounter - Carolina Lara RN - 03/06/2025 6:02 PM EDT Please see other phone encounter dated 03/06/25 [facility]08-27-2025 Miscellaneous Notes* Telephone Encounter - Carolina Lara RN - 03/06/2025 6:02 PM EDT Please see other phone encounter dated 03/06/25 * Telephone Encounter - Aniya Lin - 03/06/2025 2:26 PM EDT Patient is out of his medication and needs it sent in mary. He was under the impression this was taken care of at his visit with Dr. Garrett on 02-27-25 * Telephone Encounter - Aniya Lin - 03/06/2025 2:24 PM EDT Prescription Refill Information The patient has been identified by name and date of : Yes Caregiver verified no other encounters exist for this prescription request: Yes Caregiver confirmed with patient/requestor that no other refills are due, in the near future, with this provider at this time: Yes The last office visit in the department: 02-27-25 Does the patient have a future office visit with this provider/department: Yes Requested Prescriptions Pending Prescriptions Disp Refills warfarin (COUMADIN) 5 mg tablet 30 tablet 3 Sig: Take 1 tablet by mouth once daily. Take one half tablet on 01/01. Check INR on 01/02. Further dosing per Primary Care Provider. Take by mouth daily as directed. Aniya Pepe Slava Napier March 06, 2025 2:25 PM documented in this encounterC[facility]08-27-[facility] Miscellaneous Notes* Telephone Encounter - Carolina Lara RN - 03/06/2025 6:02 PM EDT Pt asking what time of the day should pt take his Coumadin? Please see other phone encounter of today. Some confusion as to who pt's PCP is and who is following his INR orders and prescribing his Coumadin. Discussed with pt that if Dr. Renay Garrett is going to be following his INR and prescribing Coumadin that it would be better if she was also his PCP so thatwhen she is out of the office, the other providers can order medications or see him as needed. Discussed with pt the importance of taking his Coumadin on a daily basis at around the same time every day. Informed pt of chance of blood clots due to his new mechanical valve he just had put in December 2024. Informed of what can happen if he gets a blood clot. Pt has not been taking his Coumadin consistently. States he was out of the area and did not have his medication with him so he has missed several doses. After much discussion with pt, he is going to have Dr. Renay Garrett as PCP, continue with Alyx at [facility] for INR checks and will keep better track of his medication and taking it as directed. Pt states he is currently taking 5 mg of Coumadin daily except on Wednesdays, he takes 7.5 mg (one and a half tablets). Pt would like to cancel his [facility] clinic appt for tomorrowas he has an appt in the [employer] school [employer] with Brinda Crain. He will have her do a fingerstick INR and report it to Dr. Garrett. Pt took his last dose of Coumadin today and needs new script sent to [facility] in [place]. Discussed with pt also if he would be interested in the Anticoag clinic pool run by pharmacists. Atthis time, he will continue with Dr. Garrett. documented in this encounterC[facility]08-27-[facility]25 NoteHNO ID: [id number] Author: COLLEEN HOFFMAN LPN Service: ? Author Type: Licensed Nurse Type: Progress Notes Filed: 03/07/2025 11:14 Note Text: Papi is here today due to mild shortness of breath on exertion This has been happening since his heart surgery December 25 Patient goes to the Coumadin Clinic in [place] he missed a couple dose of his medication last week Patient is asking if he can get an INR test done today because he cannot make it to the [place] [facility] for a couple of weeks Per Robyn patient does have a standing order for POC INR testing INR done in office today (result 2.0) with instructions per Robyn for patient contact the Coumadin (anticoagulant) Clinic in [place] for dosing instructions No refills needed Colleen Hoffman LPN March 07, 2025 8:31 AM [id number]. Elizabeth [facility]08-27-2025 Telephone encounter Note* Telephone Encounter - Aniya Lin - 03/06/2025 2:26 PM EDT Patient is out of his medication and needs it sent in mary. He was under the impression this was taken care of at his visit with Dr. Garrett on 02-27-25 [facility]08-27-[facility]25 Telephone encounter Note* Telephone Encounter - Aniya Lin - 03/06/2025 2:24 PM EDT Prescription Refill Information The patient has been identified by name and date of : Yes Caregiver verified no other encounters exist for this prescription request: Yes Caregiver confirmed with patient/requestor that no other refills are due, in the near future, with this provider at this time: Yes The last office visit in the department: 02-27-25 Does the patient have a future office visit with this provider/department: Yes Requested Prescriptions Pending Prescriptions Disp Refills warfarin (COUMADIN) 5 mg tablet 30 tablet 3 Sig: Take 1 tablet by mouth once daily. Take one half tablet on 01/01. Check INR on 01/02. Further dosing per Primary Care Provider. Take by mouth daily as directed. Aniya Napier March 06, 2025 2:25 PM [facility]08-25-[facility]25 Note* Addendum Note - Robyn Taylor APRN.CNP - 03/04/2025 5:08 PM EDTAddended by: ROBYN TAYLOR on: 03/04/2025 05:08 PM Modules accepted: Orders [facility]08-25-2025 Telephone encounter Note* Telephone Encounter - Robyn Taylor APRN.CNP - 03/04/2025 5:08 PM EDT Also sending albuterol HFA Q4-6 hours PRN dyspnea, wheezing. Robyn Taylor APRN.CNP [facility]08-25-2025 Miscellaneous Notes* Addendum Note - Robyn Taylor APRN.CNP - 03/04/2025 5:08 PM EDTAddended by: ROBYN TAYLOR on: 03/04/2025 05:08 PM Modules accepted: Orders * Telephone Encounter - Robyn Taylor APRN.CNP - 03/04/2025 5:08 PM EDT Also sending albuterol HFA Q4-6 hours PRN dyspnea, wheezing. Robyn Taylor APRN.CNP * Telephone Encounter - Robyn Taylor APRN.CNP - 03/04/2025 5:05 PM EDT Yes please triage! I do not recall ever discussing this with him previously. Looks like Sruthi Ambrosio had last sent Anoro to tx chronic bronchitis but rx in December and it's not on his problemlist so I did not review it. He may be in active exacerbation if hasn't had inhaler in several months. I will send refill but may need sooner visit for steroids. Robyn Taylor APRN.CNP * Telephone Encounter - Victorina Juares RN - 03/04/2025 4:04 PM EDT Patient requesting refill of inhaler Anoro to [facility] on [address] [facility], stating this has helped his symptoms previously and his breathing has not returned to 100% since. Victorina Juares RN documented in this encounterCleveland Clinic [facility]08-25-2025 Telephone encounter Note * Telephone Encounter - Robyn Taylor APRN.CNP - 03/04/2025 5:05 PM EDT Yes please triage! I do not recall ever discussing this with him previously. Looks like Sruthi Ambrosio had last sent Anoro to tx chronic bronchitis but rx in December and it's not on his problemlist so I did not review it. He may be in active exacerbation if hasn't had inhaler in several months. I will send refill but may need sooner visit for steroids. Robyn Taylor APRN.CNP [facility]08-25-2025 Telephone encounter Note* Telephone Encounter - Victorina Juares RN - 03/04/2025 4:04 PM EDT Patient requesting refill of inhaler Anoro to [facility] on [address], stating this has helped his symptoms previously and his breathing has not returned to 100% since. Victorina Juares RN [facility]08-21-2025 NoteHNO ID: [id number] Author: VAMSHI BENSON MD Service: ? Author Type: Physician Type: Progress Notes Filed: 03/06/2025 15:40 Note Text: Luisito Zhong is a 44 year old male here for evaluation of his peripheral vascular disease. He was referred by his pcp qamar after review of his neuropathy. She referred him to vascular medicine for evaluation of circulatory concerns. He has had 3 cardiac surgeries, first in 2019, last very recently, as well as DM1 for 41 years. He complains of BLE pain. It has been present for years. He vapes but does not smoke. We discussed risks of nicotine in pad. He is on coumadin, crestor He has DM1 with polyneuropathy. He is s/p avr. He had the valve replacement only a few months ago. PVR done 12/19/24 showed normal BABATUNDE with R 1.12 and L 1.19. Bilateral Leg Pain: - Chronic bilateral leg pain, described as aching and similar to post-marathon fatigue. Sites and types of pain vary and migrate. - Pain recently in R thigh, then calf, now foot. - Associated with tingling and numbness on the top of the foot. - Reports constant tiredness and fatigue in legs. We did discuss that some of this could be related to his 3 cardiac surgeries in 2018, 2021, and 2024. - Difficulty recovering from physical activities. - EMG test scheduled for further evaluation. He has palpable B DP pulses. We discussed that from a vascular standpoint, he has little evidence of clinically signfiicant vascular disease. However given his history he should quit nicotine, continue to walk, good BS control and take good care of his feet. I have little suspicion that his leg pain is secondary to pad. His symptoms include: Claudication No Location: Distance: Rest pain No Tissue loss No Location: We also discussed the importance of good foot care, wearing good shoes, and avoiding trauma. The patient understands that a non-healing wound could result in amputation. His prior surgery includes: PAST SURGICAL HISTORY Procedure Laterality Date HIP SURGERY HX Right PAST SURGICAL HISTORY OF Left shoulder scope PAST SURGICAL HISTORY OF 12/2018 aortic valve surgery to help open up REVISE MEDIAN N/CARPAL TUNNEL SURG Bilateral RT ELBOW CUBITAL TUNNEL ONLY Right SHOULDER SURGERY HX Right x4 HISTORIES: PAST MEDICAL HISTORY Diagnosis Date Acquired hypothyroidism Alcohol abuse sober since 2013 Anxiety and depression 04/04/2019 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 Has been clean since 06/21/2018. Went to treatment at [facility] for 9 months Mitral regurgitation Murmur Pleural effusion on right 01/14/2025 Rotator cuff syndrome 06/18/2015 Subaortic membrane ([facility]CC) with stenosis Tetrahydrocannabinol (THC) use disorder, mild, in sustained remission, in controlled environment, abuse Type 1 diabetes mellitus with diabetic polyneuropathy ([facility]) PAST SURGICAL HISTORY Procedure Laterality Date HIP SURGERY HX Right PAST SURGICAL HISTORY OF Left shoulder scope PAST SURGICAL HISTORY OF 12/2018 aortic valve surgery to help open up REVISE MEDIAN N/CARPAL TUNNEL SURG Bilateral RT ELBOW CUBITAL TUNNEL ONLY Right SHOULDER SURGERY HX Right x4 SOCIAL HISTORY[1] MEDICATIONS: Current Outpatient Medications Medication Sig Dispense Refill ferrous sulfate 325 mg (65 mg iron) tablet Take iron daily with vitamin C to increase absorption. 90 tablet 3 ascorbic acid, vitamin C, (VITAMIN C) 500 mg tablet Take vitamin C daily with iron to increase absorption. 90 tablet 3 ciclopirox (LOPROX) 0.77 % cream APPLY TOPICALLY TO THE AFFECTED AREA TWICE DAILY NEEDED FOR RASH warfarin (COUMADIN) 5 mg tablet Take 1 tablet by mouth once daily. Take one half tablet on 01/01. Check INR on 01/02. Further dosing per Primary Care Provider. Take by mouth daily as directed. 30 tablet 0 levothyroxine (SYNTHROID) 150 mcg tablet Take 1 tablet by mouth daily before breakfast. acetaminophen (TYLENOL) 500 mg tablet Take 1-2 tablets by mouth every 6 hours as needed for pain. Do not exceed 4000mg in 24 hours aspirin 81 mg chewable tablet Take 1 tablet by mouth once daily. 30 tablet 2 insulin lispro (HUMALOG U-100 INSULIN) 100 unit/mL injection Continue insulin pump with home settings Home pump settings: Medtronic 780G, Humalog Basal Rate: 00:00 = 1.25 units/hr 4:00 = 1.30 units/hr 7:00 = 1.50 units/hr 11:00 = 1.60 units/hr 18:00 = 1.40 units/hr 23:00 = 1.20 units/hr Insulin:Carbohydrate ratio: 00:00 1 units per 8.5 g carbohydrate 17:00 1 units per 7 g carbohydrate Correction bolus: 1 unit insulin lowers glucose 35 mg/dL, correct to a target blood glucose of 110-130 mg/dL cholecalciferol, Vitamin D3, (VITAMIN D3) 1,250 mcg (50,000 unit) cap capsule Take 50,000 Units by mouth one time a wee (more content not included)...[facility]08-21-2025 History of Present illness Narrative* Vamshi Benson MD - 02/28/2025 11:34 AM EDT Luisito Zhong is a 44 year old male here for evaluation of his peripheral vascular disease. He wasreferred by his pcp qamar after review of his neuropathy. She referred him to vascular medicine for evaluation of circulatory concerns. He has had 3 cardiac surgeries, first in 2019, last very recently, as well as DM1 for 41 years. He complains of BLE pain. It has been present for years. He vapes but does not smoke. We discussed risks of nicotine in pad. He is on coumadin, crestor He has DM1 with polyneuropathy. He is s/p avr. He had the valve replacement only a few months ago. PVR done 12/19/24 showed normal BABATUNDE with R 1.12 and L 1.19. Bilateral Leg Pain: - Chronic bilateral leg pain, described as aching and similar to post-marathon fatigue. Sites and types of pain vary and migrate. - Pain recently in R thigh, then calf, now foot. - Associated with tingling and numbness on the top of the foot. - Reports constant tiredness and fatigue in legs. We did discuss that some of this could be relatedto his 3 cardiac surgeries in 2018, 2021, and 2024. - Difficulty recovering from physical activities. - EMG test scheduled for further evaluation. He has palpable B DP pulses. We discussed that from a vascular standpoint, he has little evidence of clinically signfiicant vascular disease. However given his history he should quit nicotine, continue to walk, good BS control and take good care of his feet. I have little suspicion that his leg pain is secondary to pad. His symptoms include: Claudication No Location: Distance: Rest pain No Tissue loss No Location: We also discussed the importance of good foot care, wearing good shoes, and avoiding trauma. The patient understands that a non-healing wound could result in amputation. His prior surgery includes: PAST SURGICAL HISTORY Procedure Laterality Date HIP SURGERY HX Right PAST SURGICAL HISTORY OF Left shoulder scope PAST SURGICAL HISTORY OF 12/2018 aortic valve surgery to help open up REVISE MEDIAN N/CARPAL TUNNEL SURG Bilateral RT ELBOW CUBITAL TUNNEL ONLY Right SHOULDER SURGERY HX Right x4 HISTORIES: PAST MEDICAL HISTORY Diagnosis Date Acquired hypothyroidism Alcohol abuse sober since 2013 Anxiety and depression 04/04/2019 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 Has been clean since 06/21/2018. Went to treatment at [facility] for 9 months Mitral regurgitation Murmur Pleural effusion on right 01/14/2025 Rotator cuff syndrome 06/18/2015 Subaortic membrane (HCC) with stenosis Tetrahydrocannabinol (THC) use disorder, mild, in sustained remission, in controlled environment, abuse Type 1 diabetes mellitus with diabetic polyneuropathy (HCC) PAST SURGICAL HISTORY Procedure Laterality Date HIP SURGERY HX Right PAST SURGICAL HISTORY OF Left shoulder scope PAST SURGICAL HISTORY OF 12/2018 aortic valve surgery to help open up REVISE MEDIAN N/CARPAL TUNNEL SURG Bilateral RT ELBOW CUBITAL TUNNEL ONLY Right SHOULDER SURGERY HX Right x4 SOCIAL HISTORY[1] MEDICATIONS: Current Outpatient Medications Medication Sig Dispense Refill ferrous sulfate 325 mg (65 mg iron) tablet Take iron daily with vitamin C to increase absorption. 90 tablet 3 ascorbic acid, vitamin C, (VITAMIN C) 500 mg tablet Take vitamin C daily with iron to increase absorption. 90 tablet 3 ciclopirox (LOPROX) 0.77 % cream APPLY TOPICALLY TO THE AFFECTED AREA TWICE DAILY NEEDED FOR RASH warfarin (COUMADIN) 5 mg tablet Take 1 tablet by mouth once daily. Take one half tablet on 01/01. Check INR on 01/02. Further dosing per Primary Care Provider. Take by mouth daily as directed. 30 tablet 0 levothyroxine (SYNTHROID) 150 mcg tablet Take 1 tablet by mouth daily before breakfast. acetaminophen (TYLENOL) 500 mg tablet Take 1-2 tablets by mouth every 6 hours as needed for pain. Do not exceed 4000mg in 24 hours aspirin 81 mg chewable tablet Take 1 tablet by mouth once daily. 30 tablet 2 insulin lispro (HUMALOG U-100 INSULIN) 100 unit/mL injection Continue insulin pump with home settings Home pump settings: Medtronic 780G, Humalog Basal Rate: 00:00 = 1.25 units/hr 4:00 = 1.30 units/hr 7:00 = 1.50 units/hr 11:00 = 1.60 units/hr 18:00 = 1.40 units/hr 23:00 = 1.20 units/hr Insulin:Carbohydrate ratio: 00:00 1 units per 8.5 g carbohydrate 17:00 1 units per 7 g carbohydrate Correction bolus: 1 unit insulin lowers glucose 35 mg/dL, correct to a target blood glucose of 110-130 mg/dL cholecalciferol, Vitamin D3, (VITAMIN D3) 1,250 mcg (50,000 unit) cap capsule Take 50,000 Units by mouth one time a week. traZODone (DESYREL) 100 mg tablet Take 100 mg by mouth daily at bedtime. rosuvastatin (CRESTOR) 10 mg tablet Take 1 tablet by mouth daily at bedtime. 90 tablet 3 DULoxetine (CYMBALTA) 30 mg capsule Take 1 capsule by mouth once daily. 90 capsule 3 escitalopram oxalate (LEXAPRO) 20 mg tablet Take 1 tablet by mouth once daily. 90 tablet 3 DEXCOM G7 SENSOR xenia (Patient not taking: Reported on 02/28/2025) No current facility-administered medications for this visit. ALLERGIES: ALLERGIES Allergen Reactions Hydromorphone Itching Tramadol Unknown Burning skin PHYSICAL EXAM: PHYSICAL EXAMINATION: General appearance: Well appearing, alert, in no acute distress, well-hydrated, well nourished. Skin: Skin color, texture, turgor normal, no suspicious rashes or lesions Head: Normocephalic, no abnormalities Lungs: Breathing unlabored on RA Heart: Abdomen: Extremities: No deformities, edema, skin discoloration, clubbing or cyanosis. Good capillary refill. Musculoskeletal: No joint swelling, deformity, or tenderness Peripheral pulses: Normal Neuro: Gait normal, sensation grossly in tact Tissue loss: none ASSESSMENT: Leg pain No evidence of significant Peripheral Vascular Occlusive Disease: PLAN: Continue medication Good foot care Nicotine cessation BS control EMG testin already scheduled FOLLOW UP: jamie Benson MD I spent a total of 30 minutes on the date of the service which included preparing to see the patient, [id number] patient care, completing clinical documentation, performing a medically appropriate examination, and counseling and educating the patient/family/caregiver. [1] Social History Tobacco Use Smoking status: Former Current packs/day: 0.00 Average packs/day: 0.5 packs/day for 25.0 years (12.5 ttl pk-yrs) Types: Cigarettes Start date: 11/1996 Quit date: 11/2021 Years since quittin.3 Smokeless tobacco: Never Tobacco comments: nicotine lozenges daily Vaping Use Vaping status: Some Days Substances: Nicotine, Flavoring Devices: Disposable Substance Use Topics Alcohol use: Not Currently Drug use: Not Currently Types: Crack Cocaine [facility] Telephone encounter Note * Telephone Encounter - Eliza Josue RN - 02/27/2025 11:19 AM EDT PAC received an updated referral for the patient. INR (POCT) (no units) Date Value 02/22/2025 1.9 02/06/2025 2.4 01/23/2025 2.8 Updated anticoag navigator. Alexa Josue RN Pharmacy [facility]08-20-2025 Miscellaneous Notes* Telephone Encounter - Eliza Josue RN - 02/27/2025 11:19 AM EDT PAC received an updated referral for the patient. INR (POCT) (no units) Date Value 02/22/2025 1.9 02/06/2025 2.4 01/23/2025 2.8 Updated anticoag navigator. Alexa Josue RN Pharmacy Anticoagulation Clinic documented in this encounterC[facility]08-20-2025 NoteWay[facility] History of Present illness Narrative* Renay Garrett MD - 02/27/2025 10:44 AM EDT Images from the original note were not included. 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 Neuropathy (EMG ordered) Overweight Hx of aortic valve replacement, follows with Dr. Morris of [facility] upcoming visit on 03/15 Follows with [facility], on warfarin for Aortic valve. Goal INR is 2-3 HLD last LDL 102 7/, on crestor 10 Hypothyroid on synthroid 150 Insomnia on trazodone 100 On asa 81 for primary prevention. Chronic pain on flexuril On duloxetine for neuropathy On lexapro 20 for anxiety and depression. Presents as he needs someone to follow for his coumadin. He would still like to follow with Nikolas BRAVO as his PCP. Coumadin taking 5mg, taking 7.5 on Wednesdays. Was 1.9 5 days ago but had missed a dose. He is not having any bleeding. He is taking a consistent amount of vitamin K containing foods in his diet. Anxiety and depression are both not going well right now. Denies having suicdical thoughts. Denies having any planning, just passing thought that due to his chronic illness things would be better if he was not here but no planning. States he would seek medical help if he began having SI. Review of Systems PAIN ASSESSMENT: Negative for pain, history of chronic pain, or current treatment for a chronic pain condition. GENERAL: No weight loss, or fevers HEENT: Negative for frequent or significant headaches RESPIRATORY: Negative for cough, wheezing, shortness of breath CARDIOVASCULAR: Negative for chest pain, palpitations, PND or orthopnea GI: No nausea, vomiting, or diarrhea or abdominal pain. No IA bleeding or melana : No history of dysuria, frequency, urgency, or change in urine appearance NEURO: No history of headaches, numbness, weakness, or changes to vision or hearing Health maintenance: HPV Vaccine(1 - 3-dose SCDM series) Never done Dilated Retinal Exam due on 06/18/2014 Diabetic Foot Exam due on 01/22/2024 Colorectal Cancer Screening Never done Allergies: ALLERGIES Allergen Reactions Hydromorphone Itching Tramadol Unknown Burning skin Medications: ferrous sulfate 325 mg (65 mg iron) tablet Take iron daily with vitamin C to increase absorption. ascorbic acid, vitamin C, (VITAMIN C) 500 mg tablet Take vitamin C daily with iron to increase absorption. ciclopirox (LOPROX) 0.77 % cream APPLY TOPICALLY TO THE AFFECTED AREA TWICE DAILY NEEDED FOR RASH levothyroxine (SYNTHROID) 150 mcg tablet Take 1 tablet by mouth daily before breakfast. acetaminophen (TYLENOL) 500 mg tablet Take 1-2 tablets by mouth every 6 hours as needed for pain. Do not exceed 4000mg in 24 hours aspirin 81 mg chewable tablet Take 1 tablet by mouth once daily. insulin lispro (HUMALOG U-100 INSULIN) 100 unit/mL injection Continue insulin pump with home settings Home pump settings: Medtronic 780G, Humalog Basal Rate: 00:00 = 1.25 units/hr 4:00 = 1.30 units/hr 7:00 = 1.50 units/hr 11:00 = 1.60 units/hr 18:00 = 1.40 units/hr 23:00 = 1.20 units/hr Insulin:Carbohydrate ratio: 00:00 1 units per 8.5 g carbohydrate 17:00 1 units per 7 g carbohydrate Correction bolus: 1 unit insulin lowers glucose 35 mg/dL, correct to a target blood glucose of 110-130 mg/dL cholecalciferol, Vitamin D3, (VITAMIN D3) 1,250 mcg (50,000 unit) cap capsule Take 50,000 Units by mouth one time a week. traZODone (DESYREL) 100 mg tablet Take 100 mg by mouth daily at bedtime. rosuvastatin (CRESTOR) 10 mg tablet Take 1 tablet by mouth daily at bedtime. DULoxetine (CYMBALTA) 30 mg capsule Take 1 capsule by mouth once daily. escitalopram oxalate (LEXAPRO) 20 mg tablet Take 1 tablet by mouth once daily. DEXCOM G7 SENSOR xenia warfarin (COUMADIN) 5 mg tablet Take 1 tablet by mouth once daily. Take one half tablet on 01/01. Check INR on 01/02. Further dosing per Primary Care Provider. Take by mouth daily as directed. Past Medical History: PAST MEDICAL HISTORY Diagnosis Date Acquired hypothyroidism Alcohol abuse sober since 2013 Anxiety and depression 04/04/2019 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 Has been clean since 06/21/2018. Went to treatment at [facility] for 9 months Mitral regurgitation Murmur Pleural effusion on right 01/14/2025 Rotator cuff syndrome 06/18/2015 Subaortic membrane (HCC) with stenosis Tetrahydrocannabinol (THC) use disorder, mild, in sustained remission, in controlled environment, abuse Type 1 diabetes mellitus with diabetic polyneuropathy (HCC) Social History: SOCIAL HISTORY[1] Family History: Family History Problem Relation Age of Onset No Known Problems Mother No Known Problems Father No Known Problems Sister No Known Problems Sister Cancer Maternal Grandmother Heart Attack Paternal Grandfather BP 118/74 Pulse 97 Resp 18 Wt 111.6 kg (246 lb) SpO2 97% BMI 29.94 kg/m General: Awake, alert, not in acute distress 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 No abnormal posturing or positioning. Speech is normal. Strength grossly intact. RESP: Clear lungs bilateral with good air entry, No increased work of breathing CVS: RRR, No murmur. Pulses 2+. GI: Abdomen is soft, non distended, non tender. No masses or hepatomegaly appreciated. Skin/Other: No rashes or lesions. HEENT: pupils equal Extremities: No peripheral edema, swelling or erythema of lower extremities. Labs: Reviewed the following: Pertinent labs as outlined above Latest Ref Rng 01/23/2025 02/06/2025 02/22/2025 INR (POCT) 0.8 - 1.2 2.8 (H) 2.4 (H) 1.9 (H) Internal Quality Check Acceptable Acceptable Acceptable Legend: (H) High Imaging: Reviewed the following: NA Assessment/Plan: ASSESSMENT/PLAN: 1. H/O mechanical aortic valve replacement - ICD9: V43.3, ICD10: Z95.2 Hx of mechanical aortic valve, on warfarmin 5mg daily except 7.5mg Wednesdays. INR generally in range, slightly subtherapeutic last check iso missing one dose. Continue prior dose and bi weekly INR - ANTICOAG/COUMADIN CLINIC PHARM Will communicate his mental health issues to his PCP Renay Garrett Remainder of plan including medications to be continued as prior to this visit unless noted above. I will reach out if lab testing or imaging is abnormal and requires a change in the plan discussed above. Otherwise, we can review results at follow up. I discussed this with the patient and they arein agreement. Discussed with patient the importance of continuity of care. Follow up appointments as scheduled below. We discussed returning sooner if symptoms should worsen or not improve as expected as discussed during our appointment. Symptoms that should prompt escalation of care that we discussed include Worsening mental health. If SI he would go to ED Renay Garrett MD Internal Medicine and Pediatrics [facility] 02/27/2025 11:04 AM Portions of note generated prior to visit. History of illness, past medical and surgical history, family and social history, medications, allergies, labs and imaging reviewed during visit and are updated as appropriate following visit. I spent 30 minutes in the visit, with more than 50% of the total [id number] time of the visit in counseling / coordination of care. Future Appointments Date Time Provider Department Center 02/28/2025 11:30 AM Vamshi Benson MD [facility] 03/07/2025 12:00 PM Wstr, Anticoag [facility] COU[facility]WS [facility] 03/12/2025 8:30 AM [facility] Card[facility] 07/16/2025 2:40 PM Robyn Taylor APRN.[facility] [1] Social History Tobacco Use Smoking status: Former Current packs/day: 0.00 Average packs/day: 0.5 packs/day for 25.0 years (12.5 ttl pk-yrs) Types: Cigarettes Start date: 11/1996 Quit date: 11/2021 Years since quittin.3 Smokeless tobacco: Never Tobacco comments: nicotine lozenges daily Vaping Use Vaping status: Some Days Substances: Nicotine, Flavoring Devices: Disposable Substance Use Topics Alcohol use: Not Currently Drug use: Not Currently Types: Crack Cocaine documented in this encounterC[facility]08-15-2025 NoteWay[facility]08-15-2025 History of Present illness Narrative* Alyx Hernandez, RN - 02/22/2025 1:12 PM EDT patient had inr completed at [facility] patients inr is 1.9 (patients inr range is 2.0-3.0) patient is currently taking 7.5mg Wed and 5mg all other days patients last dose change was on 01/16/25 due to a low level of 1.8 (dose at that time was 5mg daily) patient has had no changes in medication and patient missed Tuesday's 7.5mg dose and no change indiet Advised patient to continue on the same dose(s) and that they would only be contacted regarding dosage and follow up instructions after review with provider, if a change is needed. Written instructions given and patient verbalized understanding. Presently scheduled in 2 weeks (03/07/29) for follow up INR since level is just slightly low but most likely due to the missed dose * Jaelyn Black RPh - 02/22/2025 10:15 AM EDT INR of 1.9 is slightly below goal. Agree with plan to continue current warfarin dose of 7.5mg Wed/ 5mg all other days and recheck INR on 02/04. Jaelyn Black PharmD documented in this encounterCleveland Clinic [facility]08-15-2025 NoteWay[facility]08-12-2025 Telephone encounter Note* Telephone Encounter - Betty Hassan - 02/19/2025 2:12 PM EDT new pt internal referral from Robyn Taylor APRN.SENIOR TECHNICAL ARCHITECT for PVD (Numbness of right foot, Type 1 diabetes mellitus with diabetic polyneuropathy) - PVR 12/19/24 Left vm for pt to call office to schedule consult [facility]08-12-2025 Miscellaneous Notes* Telephone Encounter - Betty Hassan - 02/19/2025 2:12 PM EDT new pt internal referral from Claudia, Robyn Cohen APRN.SENIOR TECHNICAL ARCHITECT for PVD (Numbness of right foot, Type 1 diabetes mellitus with diabetic polyneuropathy) - PVR 12/19/24 Left vm for pt to call office to schedule consult documented in this encounterC[facility]08-12-2025 Telephone encounter Note * Telephone Encounter - Stacia Valdivia MA - 02/19/2025 9:04 AM EDT Items addressed in this encounter: Telephone Encounter Vascular referral faxed, [facility] close [facility]. Stacia Valdivia MA February 19, 2025 9:04 AM 9:04 AM [facility]08-12-2025 Miscellaneous Notes* Telephone Encounter - Stacia Valdivia MA - 02/19/2025 9:04 AM EDT Items addressed in this encounter: Telephone Encounter Vascular referral faxed, pt notified via [facility] close encounter. Stacia Valdivia MA February 19, 2025 9:04 AM 9:04 AM * Telephone Encounter - Eliza Hopkins - 02/18/2025 3:32 PM EDT Patient called office wanted to know if the referral to [facility] has been done, as previous referral was sent to [facility] in which they do not accept his insurance. Eliza Hopkins documented in this encounterCleveland Clinic [facility]08-12-2025 Telephone encounter Note * Telephone Encounter - Stacia Valdivia MA - 02/19/2025 9:03 AM EDT Items addressed in this encounter: MyChart Encounter referral info given via [facility] close encounter. Stacia Valdivia MA February 19, 2025 9:03 AM 9:03 AM [facility]08-12-2025 Miscellaneous Notes* Telephone Encounter - Stacia Valdivia MA - 02/19/2025 9:03 AM EDT Items addressed in this encounter: MyChart Encounter referral info given via [facility] close encounter. Stacia Valdivia MA February 19, 2025 9:03 AM 9:03 AM documented in this encounterCleveland Clinic [facility]08-12-2025 Telephone encounter Note * Telephone Encounter - Stacia Valdivia MA - 02/19/2025 8:57 AM EDT Items addressed in this encounter: Fax/Forms Vascular referral faxed to [facility] referral [facility] given via [facility] close encounter. Stacia Valdivia MA February 19, 2025 8:57 AM 8:57 AM [facility]08-12-2025 Miscellaneous Notes* Telephone Encounter - Stacia Valdivia MA - 02/19/2025 8:57 AM EDT Items addressed in this encounter: Fax/Forms Vascular referral faxed to [facility] close [facility]. Stacia Valdivia MA February 19, 2025 8:57 AM 8:57 AM documented in this encounterCleveland Clinic [facility]08-11-2025 Telephone encounter Note * Telephone Encounter - Eliza Hopkins - 02/18/2025 3:32 PM EDT Patient called office wanted to know if the referral to [facility] has been done, as previous referral was sent to [facility] in which they do not accept his insurance. Eliza Hopkins [facility]08-11-2025 Telephone encounter Note* Telephone Encounter - Colleen Hoffman LPN - 02/18/2025 1:43 PM EDT Referral faxed to [facility] ph#[phone] fax#[phone]. I left this information for patient in a message on his voice mail. Colleen Hoffman LPN February 18, 2025 1:43 PM [facility]08-11-2025 Miscellaneous Notes* Telephone Encounter - Colleen Hoffman LPN - 02/18/2025 1:43 PM EDT Referral faxed to [facility] ph#[phone] fax#[phone]. I left this information for patient in a message on his voice mail. Colleen Hoffman LPN February 18, 2025 1:43 PM documented in this encounterCleveland Clinic [facility]08-06-2025 NoteHNO ID: [id number] Author: ROBYN TAYLOR APRN.SENIOR TECHNICAL ARCHITECT Service: ? Author Type: Nurse Practitioner Type: Progress Notes Filed: 02/13/2025 17:12 Note Text: This note was created using [employer] technology with patient consent. Subjective Luisito Zhong is a 44-year-old male with a history of diabetes, presenting for evaluation of chest pain, cognitive concerns, and neuropathy. Chest Pain: - Intermittent, sharp pain localized to the left lateral side of the chest, near the axilla. - Pain does not radiate. - Occurs primarily in the evening after being up all day. - Describes a tight sensation, similar to a muscle. - Denies recent URI. - Denies feeling a knot or mass in the area. - Denies use of nitroglycerin; recent cardiac catheterization which did not reveal any blockages. - Denies recent trauma or injury. Cognitive Concerns: - Noticed forgetfulness, particularly with names. - Reports losing train of thought mid-sentence. - Patient is a type 1 diabetic; believes cognitive issues may be related to recurrent low blood sugar episodes. - Denies history of CVA or TBI. Neuropathy: - Right foot has been going numb frequently over the past week. - Reports coldness in feet and hands. - Scheduled for an EMG at the end of the month, ordered by portfolio manager Dr. Desai. - Has a virtual appointment with neuromuscular specialist Dr. Marysol Cardoza on 03/12. Diabetes: - Managed by portfolio manager Dr. Desai of [facility]. - Recent focus on thyroid levels during last visit. - Scheduled to see Dr. Desai again in a month. Aortic Valve Replacement: - Recent aortic valve replacement surgery. - Follow-up appointment with detective homicide squad Dr. Morris at [facility] on 03/15. - Reports ongoing fatigue and dyspnea at baseline. - Recent chest X-ray showed no acute abnormalities and resolved pleural effusion. - Following with [facility] for warfarin management. - Has an upcoming appointment with a new PCP, Dr. Renay Garrett, in [place] on 02/27 for anticoagulation management. 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 Has been clean since 06/21/2018. Went to treatment at [facility] for 9 months Mitral regurgitation Murmur Pleural effusion on right 01/14/2025 Rotator cuff syndrome 06/18/2015 Subaortic membrane (HCC) with stenosis Tetrahydrocannabinol (THC) use disorder, mild, in sustained remission, in controlled environment, abuse Type 1 diabetes mellitus with diabetic polyneuropathy (HCC) ACTIVE PROBLEM LIST Impingement Syndrome of Right Shoulder Type 1 Diabetes Mellitus With Diabetic Polyneuropathy (Hcc) Acquired Hypothyroidism Former Smoker Subaortic Membrane (Hcc) Mitral Regurgitation Alcohol Abuse History of Drug Abuse (Hcc) Mixed Anxiety and Depressive Disorder Dyspnea Dyslipidemia Obesity (Bmi 30-39.9) Discharge Planning Issues Atelectasis Post-Op Pain Sob (Shortness of Breath) Tricuspid Regurgitation Aortic Regurgitation Obesity, Class II, Bmi 35-39.9 Hypervolemia Encounter for Support and Coordination of Transition of Care Nicotine use disorder, F17.2 History of Asthma History of Cocaine Use Hld (Hyperlipidemia) Hypoglycemia Chronic Right Shoulder Pain Pain in Joint, Shoulder Region Substance Abuse ([facility]) Vitamin D Deficiency Type 1 Diabetes Mellitus Without Complication ([facility]) Homeless Cocaine Abuse ([facility]) Aortic Valve Disorder Class 1 Drug-Induced Obesity With Serious Comorbidity and Body Mass Index (Bmi) of 31.0 to 31.9 in Adult Pre-Op Testing Crack Cocaine Use 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 Postoperative Pulmonary Edema ([facility]) S/P Avr (Aortic Valve Replacement) Nonrheumatic Aortic Valve Stenosis Coagulopathy ([facility]) Stress Hyperglycemia Anticoagulation Management Encounter Type 1 Diabetes Mellitus With Hyperglycemia ([facility]) Insulin Pump in Place Obesity, Class I, Bmi 30-34.9 Correction Current Use of Anticoagulant Therapy Chronic Anemia Overweight With Body Mass Index (Bmi) of 29 to 29.9 in Adult History of Mechanical Aortic Valve Replacement 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 (Current) Use of Anticoagulants Tachycardia Herniation of Intervertebral Disc of Cervical Region Presence of Other Heart-Valve Replacement Iron Deficiency Anemia Secondary to Inadequate Dietary Iron Intake Cognitive Decline Numbness of Right Foot Peripheral Vascular Disease Current Outpatient Medications Medication Sig Dispense Refill DEXCOM G7 SENSOR xenia ferrous sulfate 325 mg (65 mg iron) tablet Take iron daily with vitamin C to increase absorptio (more content not included)...[facility]08-05-2025 NoteHNO ID: [id number] Author: COLLEEN HOFFMAN LPN Service: ? Author Type: LICENSED NURSE Type: Progress Notes Filed: 02/13/2025 17:12 Note Text: Papi is here today to discuss referrals Patient filed a disability claim recently He spoke to an golf club repairer and he suggested patient see some specialists or at least get more testing to document his issues He is asking about vascular and Neurology He is also asking about cognitive testing as he is having some problems with his speech and recall He is seeing a spine surgeon next week for disc issues and compression in his neck No refills needed Colleen Hoffman LPN February 13, 2025 4:05 PMSt[facility]07-30-2025 History of Present illness Narrative* Laura Mai RT(R) - 02/06/2025 4:50 PM EDT Radiology Service Progress Note PATIENT NAME: Luisito Zhong DATE OF SERVICE: February 06, 2025 TIME: 4:29 PM PATIENT IDENTITY VERIFICATION COMPLETED USING TWO (2) IDENTIFIERS: Name and Date of confirmedby patient verbally. FALL SCREENING: Has the patient had 2 falls in the last year or 1 fall with injury or currently using an Ambulatory Assistive Device (Walker, Cane, Wheelchair, Crutches, etc.)? No PATIENT GENDER DATA: Assigned male at PATIENT RELEVANT IMPLANT DATA REVIEWED: Yes PATIENT PRESENTS WITH AN IMPLANTABLE OR ATTACHED TIME ANALYSIS CLERK: No RADIOLOGY DEPARTMENT: General X-ray: Exam(s) Completed: Chest X-Ray PERIPHERAL IV DATA: Not applicable SIGNED BY: RT Rosalinda(R) February 06, 2025 4:29 PM documented in this encounterCleveland Clinic [facility] Hospital07-30-2025 NoteWay[facility]07-30-2025 History of Present illness Narrative* Caterina Reddy RPh - 02/06/2025 4:30 PM EDT Noted - his INR is therapeutic at 2.4. Would continue 7.5 mg on Tue and 5 mg all other days as noted below. Would prefer a sooner follow up in 2 weeks however due to being on warfarin for only 1 month. Caterina Rdedy RPh * Alyx Hernandez RN - 02/06/2025 4:24 PM EDT patient had inr completed at [facility] patients inr is 2.4 (patients inr range is 2.0-3.0) patient is currently taking 7.5mg Wed and 5mg all other days patients last dose change was on 01/16/25 due to a low level of 1.8 (dose at that time was 5mg daily) patient has had no changes in medication and no missed doses and no change in diet Advised patient to continue on the same dose(s) and that they would only be contacted regarding dosage and follow up instructions after review with provider, if a change is needed. Written instructions given and patient verbalized understanding. Presently scheduled in 3 weeks (02/26/25) for follow up INR. documented in [facility]25 Note[facility]07-17-2025 History of Present illness Narrative* Robyn Taylor APRN.SENIOR TECHNICAL ARCHITECT - 01/24/2025 2:35 PM EDT This note was created using [employer] technology with patient consent. Subjective Luisito Zhong is a 44-year-old male with a history of DM, hypothyroidism, and recent mechanical aortic valve replacement, presenting for follow-up with review of lab and x-ray results. Mechanical Aortic Valve Replacement: - Recent mechanical aortic valve replacement. - Last INR was 2.8 yesterday. - Referral to cardiology in process; awaiting contact for appointment scheduling. - Follow-up appointment at [facility] scheduled for 90-day graeme, including a CT scan of the heart and aortic root evaluation. Headache: - Headache x2 days. - Suspects headaches may be related to herniated disc in the neck, causing pain radiating to the back of the head. - Denies feeling sick or nauseous. - Denies respiratory or urinary symptoms, including dysuria, cough, or chills. - Denies known exposure to COVID-19. Herniated Disc: - Diagnosed with a herniated disc in the neck. - Undergoing physical therapy. - Follow-up appointment with visitor services specialist Dr. Kaur at [facility] scheduled for February 06. Anemia: - Recent lab results (01/16) show Hgb 11.9, Hct 36.9, RBC 4.18, platelets 476. - Iron level was 25; started on daily iron supplement. - Denies kidney problems; GFR 111. - LFTs normal; albumin slightly low at 3.6. - Blood glucose 116; A1c 6.4. - Cholesterol stable on statin therapy; LDL 102. - Vitamin D level 44.6. - TSH elevated at 9.930; free T4 0.9. - Consistently taking levothyroxine since hospital discharge. - Referral to endocrinology in process; awaiting contact for appointment scheduling. PAST MEDICAL HISTORY Diagnosis Date Acquired hypothyroidism Alcohol abuse sober since 2013 Anxiety and depression 04/04/2019 Cocaine abuse in remission ([facility]) last used 10/17/2014 Ex-smoker Ex-smoker Started at the age of 15 up to 1 PPD and quit 07/2018 Frozen shoulder 03/12/2014 History of drug abuse ([facility]) 04/04/2019 Cocaine and marijuana. Has been clean since 06/21/2018. 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 Tetrahydrocannabinol (THC) use disorder, mild, in sustained remission, in controlled environment, abuse Type 1 diabetes mellitus with diabetic polyneuropathy ([facility]) ACTIVE PROBLEM LIST Impingement Syndrome of Right Shoulder Type 1 Diabetes Mellitus With Diabetic Polyneuropathy ([facility]) Acquired Hypothyroidism Former Smoker Subaortic Membrane ([facility]) Mitral Regurgitation Alcohol Abuse History of Drug Abuse ([facility]) Mixed Anxiety and Depressive Disorder Dyspnea Dyslipidemia Obesity (Bmi 30-39.9) Discharge Planning Issues Atelectasis Post-Op Pain Sob (Shortness of Breath) Tricuspid Regurgitation Aortic Regurgitation Obesity, Class II, Bmi 35-39.9 Hypervolemia Encounter for Support and Coordination of Transition of Care Nicotine use disorder, F17.2 History of Asthma History of Cocaine Use Hld (Hyperlipidemia) Hypoglycemia Chronic Right Shoulder Pain Pain in Joint, Shoulder Region Substance Abuse ([facility]) Vitamin D Deficiency Type 1 Diabetes Mellitus Without Complication ([facility]) Homeless Cocaine Abuse ([facility]) Aortic Valve Disorder Class 1 Drug-Induced Obesity With Serious Comorbidity and Body Mass Index (Bmi) of 31.0 to 31.9 in Adult Pre-Op Testing Crack Cocaine Use 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 Postoperative Pulmonary Edema (Hcc) S/P Avr (Aortic Valve Replacement) Nonrheumatic Aortic Valve Stenosis Coagulopathy (Hcc) Stress Hyperglycemia Type 2 Diabetes Mellitus Without Complication, With Long-Term Current Use of Insulin (Hcc) Anticoagulation Management Encounter Type 1 Diabetes Mellitus With Hyperglycemia (Hcc) Insulin Pump in Place Obesity, Class I, Bmi 30-34.9 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 90 tablet 3 ascorbic acid, vitamin C, (VITAMIN C) 500 mg tablet Take vitamin C daily with iron to increase absorption. 90 tablet 3 ciclopirox (LOPROX) 0.77 % cream APPLY TOPICALLY TO THE AFFECTED AREA TWICE DAILY NEEDED FOR RASH warfarin (COUMADIN) 5 mg tablet Take 1 tablet by mouth once daily. Take one half tablet on 01/01. Check INR on 01/02. Further dosing per Primary Care Provider. Take by mouth daily as directed. 30 tablet 0 levothyroxine (SYNTHROID) 150 mcg tablet Take 1 tablet by mouth daily before breakfast. potassium chloride ER (KLOR-CON) 20 mEq tablet Take 1 tablet by mouth once daily. 5 tablet 0 cyclobenzaprine (FLEXERIL) 5 mg tablet Take 1 tablet by mouth once daily as needed. 7 tablet 0 acetaminophen (TYLENOL) 500 mg tablet Take 1-2 tablets by mouth every 6 hours as needed for pain. Do not exceed 4000mg in 24 hours aspirin 81 mg chewable tablet Take 1 tablet by mouth once daily. 30 tablet 2 polyethylene glycol 3350 17 gram/dose powder Take 17 g by mouth once daily as needed for constipation. Dissolve dose in 4 - 8 ounces of liquid and take as directed. To prevent constipation during post op recovery. Stop when no longer needed. 119 g 1 insulin lispro (HUMALOG U-100 INSULIN) 100 unit/mL injection Continue insulin pump with home settings Home pump settings: Medtronic 780G, Humalog Basal Rate: 00:00 = 1.25 units/hr 4:00 = 1.30 units/hr 7:00 = 1.50 units/hr 11:00 = 1.60 units/hr 18:00 = 1.40 units/hr 23:00 = 1.20 units/hr Insulin:Carbohydrate ratio: 00:00 1 units per 8.5 g carbohydrate 17:00 1 units per 7 g carbohydrate Correction bolus: 1 unit insulin lowers glucose 35 mg/dL, correct to a target blood glucose of 110-130 mg/dL cholecalciferol, Vitamin D3, (VITAMIN D3) 1,250 mcg (50,000 unit) cap capsule Take 50,000 Units by mouth one time a week. traZODone (DESYREL) 100 mg tablet Take 100 mg by mouth daily at bedtime. rosuvastatin (CRESTOR) 10 mg tablet Take 1 tablet by mouth daily at bedtime. 90 tablet 3 DULoxetine (CYMBALTA) 30 mg capsule Take 1 capsule by mouth once daily. 90 capsule 3 escitalopram oxalate (LEXAPRO) 20 mg tablet Take 1 tablet by mouth once daily. 90 tablet 3 furosemide (LASIX) 20 mg tablet Take 1 tablet by mouth once daily for 5 days. [address] (PROTONIX) 20 mg tablet Take 1 tablet by mouth daily at 6 am for 14 days. 14 tablet0 No current facility-administered medications for this visit. Medications were reviewed and verified. If pain assessment is 0, no action needed. If pain assessment is positive, please see assessment and plain. Social History Tobacco Use Smoking status: Former Current packs/day: 0.00 Average packs/day: 0.5 packs/day for 25.0 years (12.5 ttl pk-yrs) Types: Cigarettes Start date: 11/1996 Quit date: 11/2021 Years since quittin.2 Smokeless tobacco: Never Tobacco comments: nicotine lozenges daily Vaping Use Vaping status: current everyday user Substances: Nicotine, Flavoring Devices: Disposable Substance Use Topics Alcohol use: Not Currently Drug use: Not Currently Types: Crack Cocaine FAMILY HISTORY Problem Relation Age of Onset No Known Problems Mother No Known Problems Father No Known Problems Sister No Known Problems Sister Cancer Maternal Grandmother Heart Attack Paternal Grandfather Labs: - (01/23/2025) - INR: 2.8 - (01/16/2025) - RBC: 4.18 - Hemoglobin: 11.9 - Hematocrit: 36.9 - Platelets: 476 - Iron: 25 - Total Iron Binding Capacity: 310 - Transferrin: 8.1 - Ferritin: 137 - TSH: 9.93 - Free T4: 0.9 - A1c: 6.4 - GFR: 111 - Albumin: 3.6 - Bilirubin: Normal - Alkaline Phosphatase: Normal - AST: Normal - ALT: Normal - Glucose: 116 - LDL: 102 - Vitamin D: 44.6 - Urine Albumin-Creatinine Ratio: <12 - (02/08/2024) - TSH: 0.915 - (04/16/2024) - TSH: 83.067 Tests: - (Today) EKG: - Rate: 105 - Findings: Sinus Tachycardia Review of Systems Constitutional: (+) dehydration, (-) chills Head: (+) headache Cardiovascular: (+) palpitations Respiratory: (-) cough Gastrointestinal: (-) nausea Genitourinary: (-) dysuria Musculoskeletal: (+) neck pain Objective BP 120/74 Pulse 110 Temp (Src) 99.4 (Temporal) Resp 16 Ht 6' 4 (1.93m) Wt 235 lb 12.8 oz(107.0kg) SpO2 98% BMI 28.71 kg/(m^2). Physical Exam GENERAL: Alert and oriented, no acute distress. Overweight. SKIN: Unremarkable, no rash or skin lesions. HEAD: Normocephalic. EYES: PERRLA, EOMI, conjunctiva clear. EARS: External ears normal, canals clear, TM's normal. NOSE/SINUSES: Nares normal. Septum midline. OROPHARYNX: Lips, mucosa, and tongue normal, good dentition. No oral lesions noted. NECK: Supple, no lymphadenopathy, normal thyroid, no carotid bruits. LUNGS: Clear to auscultation bilaterally, no wheezes/rhonchi/rales. HEART: Regular rate, tachycardic. Mechanical valve click noted. No murmurs. No ectopy. Mechanical valve click noted. EXTREMITIES: Normal, no deformities, no skin discoloration, no edema. NEURO: Awake, alert and oriented x3, cranial nerves II-XII grossly intact, normal gait, no involuntary motions. Assessment & Plan 1. Nonrheumatic aortic valve stenosis (I35.0) 2. S/P AVR (aortic valve replacement) (Z95.2) - Recent mechanical aortic valve replacement. - INR stable at 2.8, within therapeutic range of 2-3. - Referral to cardiology in [place] pending; will follow up with visual merchandising specialist to expedite. - Scheduled for a CT scan of the heart and aortic root at 90-day post-op graeme. - Advised to monitor for signs of infection; instructed to hydrate adequately. - Discussed potential for COVID-19 testing if symptoms develop; Paxlovid available if needed. 3. Tachycardia (R00.0) - Heart rate elevated at 110 bpm, decreased to 105 bpm post-evaluation. - EKG performed; results normal. - Advised to monitor heart rate and report any persistent tachycardia. 4. Pleural effusion on right (J90) - Reordered chest X-ray to reassess pleural effusion; patient advised to complete imaging at [facility]. - Will review results and communicate findings via [employer]. 5. Iron deficiency anemia secondary to inadequate dietary iron intake (D50.8) - Hemoglobin 11.9 g/dL, hematocrit 36.9%, RBC 4.18 million/uL; improving but still low. - Iron level 25 mcg/dL, TIBC 310 mcg/dL, transferrin 8.1 mg/dL, ferritin 137 ng/mL. - Initiated oral iron supplementation daily with vitamin C. - Ordered follow-up labs to recheck iron levels and CBC after April 21. 6. Acquired hypothyroidism (E03.9) - TSH elevated at 9.930 uIU/mL, free T4 at 0.9 ng/dL. - Patient taking levothyroxine consistently. - Advised to contact Dr. Huerta for further management and potential lab recheck. 7. 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 (M50.20) - Experiencing neck pain and headaches; attributing headaches to cervical disc herniation. - Scheduled to see visitor services specialist Dr. Kaur on February 06. 8. Type 2 diabetes mellitus without complication, with long-term current use of insulin (HCC) (E11.9) - A1c at 6.4%, well-controlled. - LDL cholesterol at 102 mg/dL, stable on statin therapy. - Urine bbilanr-hx-bsxbenllru ratio within normal range, indicating good renal function. - Advised to continue current diabetes management regimen. Luisito Zhong will return in 6 month(s) for AWV or sooner as needed. Discussed need for continued follow-up with all specialist providers, taking all medications as prescribed, increasing activity level as tolerated, and lowering sodium and processed food intake at today's visit. Patient instructed to call the office or send a message via Medium with any questions related to this visit. Please Note: The patient consented to the use of ambient AI software for draft documentation of thevisit consistent with [facility] s Notice of Privacy Practices. Portions of this office note have been created using [employer], a speech recognition software program, and may contain errors including punctuation, grammar, spelling, gender, and inappropriate words or phrases that pertain to the system. DATE: January 24, 2025 SIGNATURE: Robyn Taylor APRN.CNP * Colleen Hoffman LPN - 01/24/2025 1:23 PM EDT Papi is here today for a follow up for his chronic health conditions and to review his chest xray He was unable to get Xray done yesterday in [place] because the Xray machine was down He is also here to review his recent chest Xray Patient is going to a Coumadin Clinic in [place] and does not need Robyn to manage his therapy he had an INR test done yesterday and it was 2.8 Patient says he has had a headache over the past few days Patient's temperature is elevated at 99.5 degrees F Recheck 99.8 degrees F No refills needed Colleen Hoffman LPN January 24, 2025 1:34 PM documented in this encounterCleveland Clinic [facility]07-17-2025 NoteHNO ID: [id number] Author: ROBYN TAYLOR APRN.CNP Service: ? Author Type: Nurse Practitioner Type: Progress Notes Filed: 02/05/2025 01:40 Note Text: This note was created using AI Scribe technology with patient consent. Subjective Luisito Zhong is a 44-year-old male with a history of DM, hypothyroidism, and recent mechanical aortic valve replacement, presenting for follow-up with review of lab and x-ray results. Mechanical Aortic Valve Replacement: - Recent mechanical aortic valve replacement. - Last INR was 2.8 yesterday. - Referral to cardiology in process; awaiting contact for appointment scheduling. - Follow-up appointment at [facility] scheduled for 90-day graeme, including a CT scan of the heart and aortic root evaluation. Headache: - Headache x2 days. - Suspects headaches may be related to herniated disc in the neck, causing pain radiating to the back of the head. - Denies feeling sick or nauseous. - Denies respiratory or urinary symptoms, including dysuria, cough, or chills. - Denies known exposure to COVID-19. Herniated Disc: - Diagnosed with a herniated disc in the neck. - Undergoing physical therapy. - Follow-up appointment with visitor services specialist Dr. Kaur at [facility] scheduled for February 06. Anemia: - Recent lab results (01/16) show Hgb 11.9, Hct 36.9, RBC 4.18, platelets 476. - Iron level was 25; started on daily iron supplement. - Denies kidney problems; GFR 111. - LFTs normal; albumin slightly low at 3.6. - Blood glucose 116; A1c 6.4. - Cholesterol stable on statin therapy; LDL 102. - Vitamin D level 44.6. - TSH elevated at 9.930; free T4 0.9. - Consistently taking levothyroxine since hospital discharge. - Referral to endocrinology in process; awaiting contact for appointment scheduling. 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 Has been clean since 06/21/2018. 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 Tetrahydrocannabinol (THC) use disorder, mild, in sustained remission, in controlled environment, abuse Type 1 diabetes mellitus with diabetic polyneuropathy (HCC) ACTIVE PROBLEM LIST Impingement Syndrome of Right Shoulder Type 1 Diabetes Mellitus With Diabetic Polyneuropathy (Hcc) Acquired Hypothyroidism Former Smoker Subaortic Membrane (Hcc) Mitral Regurgitation Alcohol Abuse History of Drug Abuse (Hcc) Mixed Anxiety and Depressive Disorder Dyspnea Dyslipidemia Obesity (Bmi 30-39.9) Discharge Planning Issues Atelectasis Post-Op Pain Sob (Shortness of Breath) Tricuspid Regurgitation Aortic Regurgitation Obesity, Class II, Bmi 35-39.9 Hypervolemia Encounter for Support and Coordination of Transition of Care Nicotine use disorder, F17.2 History of Asthma History of Cocaine Use Hld (Hyperlipidemia) Hypoglycemia Chronic Right Shoulder Pain Pain in Joint, Shoulder Region Substance Abuse ([facility]) Vitamin D Deficiency Type 1 Diabetes Mellitus Without Complication ([facility]) Homeless Cocaine Abuse ([facility]) Aortic Valve Disorder Class 1 Drug-Induced Obesity With Serious Comorbidity and Body Mass Index (Bmi) of 31.0 to 31.9 in Adult Pre-Op Testing Crack Cocaine Use 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 Postoperative Pulmonary Edema ([facility]) S/P Avr (Aortic Valve Replacement) Nonrheumatic Aortic Valve Stenosis Coagulopathy ([facility]) Stress Hyperglycemia Type 2 Diabetes Mellitus Without Complication, With Long-Term Current Use of Insulin ([facility]) Anticoagulation Management Encounter Type 1 Diabetes Mellitus With Hyperglycemia ([facility]) Insulin Pump in Place Obesity, Class I, Bmi 30-34.9 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 90 tablet 3 ascorbic acid, vitamin C, (VITAMIN C) 500 mg tablet Take vitamin C daily with iron to increase absorption. 90 tablet 3 ciclopirox (LOPROX) 0.77 % cream APPLY TOPICALLY TO THE AFFECTED AREA TWICE DAILY NEEDED FOR RASH warfarin (COUMADIN) 5 mg tablet Take 1 tablet b (more content not included)... [facility]07-17-2025 NoteHNO ID: [id number] Author: COLLEEN HOFFMAN LPN Service: ? Author Type: LICENSED NURSE Type: Progress Notes Filed: 02/05/2025 01:40 Note Text: Papi is here today for a follow up for his chronic health conditions and to review his chest xray He was unable to get Xray done yesterday in [place] because the Xray machine was down He is also here to review his recent chest Xray Patient is going to a Coumadin Clinic in [place] and does not need Robyn to manage his therapy he had an INR test done yesterday and it was 2.8 Patient says he has had a headache over the past few days Patient's temperature is elevated at 99.5 degrees F Recheck 99.8 degrees F No refills needed Colleen Hoffman LPN January 24, 2025 1:34 PMSt[facility] History of Present illness Narrative* Alyx Hernandez RN - 01/23/2025 4:36 PM EDT patient had inr completed at [facility] patients inr is 2.8 (patients inr range is 2.0-3.0) patient is currently taking 7.5mg Wed and 5mg all other days patients last dose change was on 01/16/25 due to a low level of 1.8 (dose at that time was 5mg daily) patient has had no changes in medication and no missed doses and no change in diet Advised patient to continue on the same dose(s) and that they would only be contacted regarding dosage and follow up instructions after review with provider, if a change is needed. Written instructions given and patient verbalized understanding. Presently scheduled in 2 weeks (02/07/25 - since pt silva new start) for follow up INR. * Caterina Reddy RPh - 01/23/2025 4:30 PM EDT Would continue the current dose as noted - 7.5 mg on Wed / 5 mg all other days. But as pt is very new to warfarin and just starting this weekly dose 7 days ago - would be appropriate to check the INR within the next week to ensure stability. Would prefer an INR by 01/30. Caterina Reddy RPh * Caterina Reddy RPh - 01/23/2025 4:30 PM EDT Prefer a sooner follow up as he is new to warfarin - see below from last week. Can we see him sooner? Caterina Reddy RPh documented in this encounterC[facility]07-[facility] Note[facility]07-[facility]-2025 Note[facility]07-[facility]-2025 Telephone encounter Note* Telephone Encounter - Robyn Taylor APRN.CNP - 01/22/2025 12:16 PM EDT Thank you! Robyn Taylor APRN.CNP [facility]07-15-2025 Miscellaneous Notes* Telephone Encounter - Robyn Taylor APRN.CNP - 01/22/2025 12:16 PM EDT Thank you! Robyn Taylor APRN.CNP * Telephone Encounter - Colleen Hoffman LPN - 01/22/2025 11:32 AM EDT I spoke with patient Papi and advised him of all information and instructions per Robyn's note. Patient did voice understanding. He did say that he is not sure if his thyroid medication was being given to him at the hospital as he just had open heart surgery on 12/25/2024. Papi also said it's really hard to tell if he is feeling fatigued more than usual because he is still recovering from the heart surgery. Papi confirmed that he does have a follow up appointment scheduled in the office this week in 2 days on and said he will discuss his results further at that time. Papi thanked mefor calling. Colleen Hoffman LPN January 22, 2025 11:38 AM * Telephone Encounter - Colleen Hoffman LPN - 01/22/2025 10:14 AM EDT I attempted to call patient Papi. No answer. I left a voice mail message for patient to return callto office. Colleen Hoffman LPN January 22, 2025 10:15 AM * Telephone Encounter - Colleen Hoffman LPN - 01/21/2025 5:07 PM EDT Per Robyn Taylor APRN.SENIOR TECHNICAL ARCHITECT regarding patient's recent test results: Please inform patient A1c is stable at 6.4%. Ensure he has secured an appointment with endocrinology in [place] (referred on 01/10). Cholesterol also stable. Continue statin therapy, heart healthy diet, and scheduled to establish with cardiology for long-term management (referred on 01/10). Iron is very low at 25 with stable anemia. Is he short of breath, having palpitations, or feeling more fatiguedthan usual? Would benefit from daily oral iron with vitamin C to improve iron stores. Rx sent to preferred pharmacy. Recheck non-fasting labs in 3 months (04/21/2025). INR below goal at 1.8. I see heis now established with the coumadin clinic in [place] and most recent INR is in range at 2.5. Please continue following with coumadin clinic for management. TSH is elevated at 9.930. Patient sees endo but is between providers. Assess for compliance with levothyroxine 150 mcg daily as prescribed and appropriate dosing alone, on empty stomach, with full glass of water at least 1 hour apart from other meds, food, beverages. Remainder of labs are stable. We will see him on the for his next office visit where we can review labs and CXR results in detail. Robyn Taylor, RIC.SENIOR TECHNICAL ARCHITECT I attempted to call patient Luisito. No answer. I left a voice mail message for patient to return call to office. Colleen Hoffman LPN January 21, 2025 5:12 PM documented in [facility] encounterC[facility] Telephone encounter Note * Telephone Encounter - Colleen Hoffman LPN - 01/22/2025 11:32 AM EDT I spoke with patient Papi and advised him of all information and instructions per Robyn's note. Patient did voice understanding. He did say that he is not sure if his thyroid medication was being given to him at the hospital as he just had open heart surgery on 12/25/2024. Papi also said it's really hard to tell if he is feeling fatigued more than usual because he is still recovering from the heart surgery. Papi confirmed that he does have a follow up appointment scheduled in the office this week in 2 days on and said he will discuss his results further at that time. Papi thanked mefor calling. Colleen Hoffman LPN January 22, 2025 11:38 AM [facility]07-15-20[facility] Telephone encounter Note* Telephone Encounter - Colleen Hoffman LPN - 01/22/2025 10:14 AM EDT I attempted to call patient Papi. No answer. I left a voice mail message for patient to return callto office. Colleen Hoffman LPN January 22, 2025 10:15 AM [facility]07-14-2025 Telephone encounter Note* Telephone Encounter - Colleen Hoffman LPN - 01/21/2025 5:07 PM EDT Per Robyn Taylor APRN.SENIOR TECHNICAL ARCHITECT regarding patient's recent test results: Please inform patient A1c is stable at 6.4%. Ensure he has secured an appointment with endocrinology in [place] (referred on 01/10). Cholesterol also stable. Continue statin therapy, heart healthy diet, and scheduled to establish with cardiology for long-term management (referred on 01/10). Iron is very low at 25 with stable anemia. Is he short of breath, having palpitations, or feeling more fatiguedthan usual? Would benefit from daily oral iron with vitamin C to improve iron stores. Rx sent to preferred pharmacy. Recheck non-fasting labs in 3 months (04/21/2025). INR below goal at 1.8. I see heis now established with the coumadin clinic in [place] and most recent INR is in range at 2.5. Please continue following with coumadin clinic for management. TSH is elevated at 9.930. Patient sees endo but is between providers. Assess for compliance with levothyroxine 150 mcg daily as prescribed and appropriate dosing alone, on empty stomach, with full glass of water at least 1 hour apart from other meds, food, beverages. Remainder of labs are stable. We will see him on the for his next office visit where we can review labs and CXR results in detail. Robyn Taylor APRN.QAMAR I attempted to call patient Luisito. No answer. I left a voice mail message for patient to return call to office. Colleen Hoffman LPN January 21, 2025 5:12 PM [facility] History of Present illness Narrative* Alyx Hernandez, ROXANA - 01/17/2025 1:41 PM EDT patient had inr completed at [facility] patients inr is 2.5 (patients inr range is 2.0-3.0) patient is currently taking 7.5mg Wed and 5mg all other days patients last dose change was on 01/16/25 due to a low level of 1.8 (dose at that time was 5mg daily) patient has had no changes in medication except for coumadin and no missed doses and no change in diet Advised patient to continue on the same dose(s) and that they would only be contacted regarding dosage and follow up instructions after review with provider, if a change is needed. Written instructions given and patient verbalized understanding. Presently scheduled in 1 weeks (01/23/25) for follow up INR. * Ania Caballero RPh - 01/17/2025 12:00 PM EDT Agree with plan. Ania Caballero RPh documented in this encounterCleveland Clinic [facility]07-10-2025 NoteHNO ID: [id number] Author: ANIA CABALLERO RPh Service: ? Author Type: Pharmacist Type: Progress Notes Filed: 01/17/2025 16:28 Note Text: Agree with plan. [facility] Miscellaneous Notes* Telephone Encounter - AbdiazizcraigMadelaine RPh - 01/16/2025 4:42 PM EDT [facility] Anticoagulation Episode Summary Anticoagulation Care Providers Provider Role Specialty Phone number Joe-Nliam, Jt Garcia MD Referring Cardiology [phone] Luisito Zhong is a 44 year old year old male patient being evaluated today for a Lab INR. Patient is currently on the following anticoagulant(s) Warfarin. Labs Lab Results Component Value Date INR 1.8 (H) 01/16/2025 INR 1.4 (H) 01/10/2025 INR 1.3 01/07/2025 Lab Results Component Value Date HB 11.9 (L) 01/16/2025 HB 11.0 (L) 01/07/2025 HB 11.5 (L) 12/31/2024 Lab Results Component Value Date HCT 36.9 (L) 01/16/2025 HCT 32.4 (L) 01/07/2025 HCT 34.2 (L) 12/31/2024 Lab Results Component Value Date PLT 476 (H) 01/16/2025 PLT 490 (H) 01/07/2025 PLT 255 12/31/2024 Lab Results Component Value Date CREAT 0.93 01/07/2025 CREAT 0.80 12/31/2024 CREAT 0.78 12/30/2024 No components found for: [id number] Lab Results Component Value Date ALT 31 01/07/2025 ALT 29 12/31/2024 ALT 35 12/30/2024 Lab Results Component Value Date AST 38 01/07/2025 AST 32 12/31/2024 AST 39 12/30/2024 Estimated Creatinine Clearance: 135.9 mL/min (based on SCr of 0.93 mg/dL). ALLERGIES Allergen Reactions Hydromorphone Itching Tramadol Unknown Burning skin Indication for Warfarin: Anticoagulation management encounter long term current use of anticoagulant therapy History of mechanical aortic valve replacement long-term (current) use of anticoagulants Anticoagulation Episode Summary Current INR goal: 2.0-3.0 Assessment: INR result of 1.8 is SUBtherapeutic due to: Patient in titration phase Plan: Current Warfarin Dosing As of 01/16/2025 Full warfarin instructions: 01/16: 7.5 mg Called and spoke to patient/caregiver Advised patient to increase dose for 1 day only then resume weekly regimen Next point of care INR check scheduled on 01/17/2025 pt getting established with chadd Patient verbalizes understanding of the plan. Patient denies need for refills. Patient advised to call the PAC with any medication changes, bleeding/bruising concerns, recent changes in vitamin k consumption, if any procedures are coming up, if they have been ill or in the hospital, and if they have missed any doses of warfarin. Madelaine Alexis RPh Clinical Pharmacist, Pharmacy Anticoagulation Clinic Pharmacy Anticoagulation Clinic Pager: [phone]. documented in this encounterC[facility]07-09-2025 Telephone encounter Note * Telephone Encounter - Madelaine Alexis RPh - 01/16/2025 4:42 PM EDT [facility] Anticoagulation Episode Summary Anticoagulation Care Providers Provider Role Specialty Phone number Joe-Nliam, Jt Garcia MD Referring Cardiology [phone] Luisito Zhong is a 44 year old year old male patient being evaluated today for a Lab INR. Patient is currently on the following anticoagulant(s) Warfarin. Labs Lab Results Component Value Date INR 1.8 (H) 01/16/2025 INR 1.4 (H) 01/10/2025 INR 1.3 01/07/2025 Lab Results Component Value Date HB 11.9 (L) 01/16/2025 HB 11.0 (L) 01/07/2025 HB 11.5 (L) 12/31/2024 Lab Results Component Value Date HCT 36.9 (L) 01/16/2025 HCT 32.4 (L) 01/07/2025 HCT 34.2 (L) 12/31/2024 Lab Results Component Value Date PLT 476 (H) 01/16/2025 PLT 490 (H) 01/07/2025 PLT 255 12/31/2024 Lab Results Component Value Date CREAT 0.93 01/07/2025 CREAT 0.80 12/31/2024 CREAT 0.78 12/30/2024 No components found for: TBILI3 Lab Results Component Value Date ALT 31 01/07/2025 ALT 29 12/31/2024 ALT 35 12/30/2024 Lab Results Component Value Date AST 38 01/07/2025 AST 32 12/31/2024 AST 39 12/30/2024 Estimated Creatinine Clearance: 135.9 mL/min (based on SCr of 0.93 mg/dL). ALLERGIES Allergen Reactions Hydromorphone Itching Tramadol Unknown Burning skin Indication for Warfarin: Anticoagulation management encounter long-term current use of anticoagulant therapy History of mechanical aortic valve replacement long-term (current) use of anticoagulants Anticoagulation Episode Summary Current INR goal: 2.0-3.0 Assessment: INR result of 1.8 is SUBtherapeutic due to: Patient in titration phase Plan: Current Warfarin Dosing As of 01/16/2025 Full warfarin instructions: 01/16: 7.5 mg Called and spoke to patient/caregiver Advised patient to increase dose for 1 day only then resume weekly regimen Next point of care INR check scheduled on 01/17/2025 pt getting established with chadd Patient verbalizes understanding of the plan. Patient denies need for refills. Patient advised to call the PAC with any medication changes, bleeding/bruising concerns, recent changes in vitamin k consumption, if any procedures are coming up, if they have been ill or in the hospital, and if they have missed any doses of warfarin. Madelaine Alexis RPh Clinical Pharmacist, Pharmacy Anticoagulation Clinic Pharmacy Anticoagulation Clinic Pager: [phone]. [facility]07-[facility] Telephone encounter Note* Telephone Encounter - Marina Paulino RPh - 01/15/2025 12:21 PM EDT I have read and agree with recommendations below. Pharm. Kate Montilla. [facility]07-08-2025 Miscellaneous Notes* Telephone Encounter - Marina Paulino RPh - 01/15/2025 12:21 PM EDT I have read and agree with recommendations below. Pharm. Kate Montilla. * Telephone Encounter - Eliza Josue RN - 01/15/2025 10:[address] King, Thank you for referring Luisito Zhong to the Anticoagulation Clinic for follow up. A pharmacist will see your patient for fingerstick INR testing and counseling. Please note: if at any time your patient does not agree to follow our recommendations for follow up care for managing their INR via POCT, home INR meter, or lab, they may be discharged back to your service for follow up. By this referral, we will be following your patient under the consult agreement policy between the Department of Pharmacy and member of the [facility]. Under this policy, you agree to maintain a clinical relationship with the patient as defined by Medicare as seeing the patient at least once a year in the outpatient setting. Our pharmacists will monitor your patient's anticoagulation therapy, adjust doses, order labs and prescriptions for warfarin/enoxaparin/Vitamin K asappropriate, and bill for our visits and lab tests listing you as the responsible referring physician. If for any reason you do not wish to continue working under this collaborative practice agreement or if the patient no longer continues in your care, please contact us to discontinue this service. Thank you for your referral, Anticoagulation Management Services * Telephone Encounter - Eliza Josue RN - 01/15/2025 10:27 AM EDT New Referral Contact: Pharmacist Anticoagulation Clinic The patient was called to discuss recent referral to the Anticoagulation Clinic. Mode of contact: cell phone Referral date: 01/14 Referring physician: Jt King Indication: AVR Goal INR: 2-3 The expected duration of therapy is Indefinite Preferred location for visits: [facility] Warfarin start date: 12/25/2024 Patient was previously instructed to take warfarin: 5mg daily Parenteral anticoagulant: No INR (no units) Date Value 01/07/2025 1.3 12/31/2024 2.0 12/30/2024 1.9 INR (POCT) (no units) Date Value 01/10/2025 1.4 Hemoglobin Date Value 01/07/2025 11.0 g/dL 04/07/2020 15.9 GM/DL Hematocrit (%) Date Value 01/07/2025 32.4 04/07/2020 45.5 WBC Date Value 01/07/2025 9.28 k/uL 04/07/2020 5.6 K/CUMM A/P: Spoke to patient. The patient: DOES agree to INR testing and consult agreement Patient scheduled for next INR Lab INR on this date: 01/16 [facility] on this date: 01/17 Patient accepts the warfarin education video. Mode of learning: Medium video link Next Action for Anticoag Management: Lab Eliza Josue RN documented in this encounterC[facility] Clinic [facility]07-08-2025 Telephone encounter Note * Telephone Encounter - Eliza Josue RN - 01/15/2025 10:[address] King, Thank you for referring Luisito Zhong to the Anticoagulation Clinic for follow up. A pharmacist will see your patient for fingerstick INR testing and counseling. Please note: if at any time your patient does not agree to follow our recommendations for follow up care for managing their INR via POCT, home INR meter, or lab, they may be discharged back to your service for follow up. By this referral, we will be following your patient under the consult agreement policy between the Department of Pharmacy and member of the [facility]. Under this policy, you agree to maintain a clinical relationship with the patient as defined by Medicare as seeing the patient at least once a year in the outpatient setting. Our pharmacists will monitor your patient's anticoagulation therapy, adjust doses, order labs and prescriptions for warfarin/enoxaparin/Vitamin K asappropriate, and bill for our visits and lab tests listing you as the responsible referring physician. If for any reason you do not wish to continue working under this collaborative practice agreement or if the patient no longer continues in your care, please contact us to discontinue this service. Thank you for your referral, Anticoagulation Management Services [facility]07-08-2025 Telephone encounter Note* Telephone Encounter - Eliza Josue RN - 01/15/2025 10:27 AM EDT New Referral Contact: Pharmacist Anticoagulation Clinic The patient was called to discuss recent referral to the Anticoagulation Clinic. Mode of contact: cell phone Referral date: 01/14 Referring physician: Jt King Indication: AVR Goal INR: 2-3 The expected duration of therapy is Indefinite Preferred location for visits: [facility] Warfarin start date: 12/25/2024 Patient was previously instructed to take warfarin: 5mg daily Parenteral anticoagulant: No INR (no units) Date Value 01/07/2025 1.3 12/31/2024 2.0 12/30/2024 1.9 INR (POCT) (no units) Date Value 01/10/2025 1.4 Hemoglobin Date Value 01/07/2025 11.0 g/dL 04/07/2020 15.9 GM/DL Hematocrit (%) Date Value 01/07/2025 32.4 04/07/2020 45.5 WBC Date Value 01/07/2025 9.28 k/uL 04/07/2020 5.6 K/CUMM A/P: Spoke to patient. The patient: DOES agree to INR testing and consult agreement Patient scheduled for next INR Lab INR on this date: 01/16 Patient scheduled for [facility] on this date: 01/17 Patient accepts the warfarin education video. Mode of learning: Medium video link Next Action for Anticoag Management: Lab Eliza Josue RN [facility]07-07-[facility] Telephone encounter Note* Telephone Encounter - Aniya Cao RN - 01/14/2025 12:[address] Diaz Pls let the patient know that I placed the referral with me as the provider. We typically do not doINRs so he should please manager change to his PCP as soon as feasible MyChart message sent Aniya Cao RN [facility]07-07-2025 Miscellaneous Notes* Telephone Encounter - Aniya Cao RN - 01/14/2025 12:[address] Diaz Pls let the patient know that I placed the referral with me as the provider. We typically do not doINRs so he should please manager change to his PCP as soon as feasible Reannahart message sent Aniya Cao RN documented in this encounterC[facility] Clinic [facility]07-03-2025 Telephone encounter Note * Telephone Encounter - Aniya Cao RN - 01/10/2025 4:46 PM EDT will be resolved in a another encounter Aniya Cao RN [facility]07-03-2025 Miscellaneous Notes* Telephone Encounter - Aniya Cao RN - 01/10/2025 4:46 PM EDT will be resolved in a another encounter Aniya Cao RN * Telephone Encounter - Karen Alejandro - 01/10/2025 1:02 PM EDT [facility] [facility] called to request for the pt that Dr. Diaz writes a referral to the [facility] coumadin clinic, as pt is moving. Pt has an appt with a new PCP on 02/27 and says that PCP can take it over once he's established. Karen Alejandro Diplomatic Courier II January 10, 2025 1:04 PM documented in this encounterCleveland Clinic [facility]07-03-2025 History of Present illness Narrative* Robyn Taylor APRN.QAMAR - 01/10/2025 4:43 PM EDT This note was created using [employer] technology with patient consent. Subjective Luisito Zhong is a 44-year-old male with a history of aortic valve replacement, type 1 diabetes, and neuropathy, presenting for an initial visit to establish care, transitional care management with hospital follow-up after placement of mechanical aortic valve, and management of anticoagulation therapy. Anticoagulation Management: - Recent mechanical aortic valve placement on 12/25/24 at [facility] per Dr. 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 - Discharged on 12/31/24 on Coumadin 5 mg daily. - Current INR goal: 2.0-3.0. - Recent INR readings: 2.0 at discharge, 2.4 two days post-discharge, 1.3 on Tuesday, 1.4 today. - Current Coumadin regimen: 2.5 mg on Tuesday, Tuesday, and Tuesday; 5 mg on Tuesday, Tuesday, Tuesday, and . - Previous regimen: 2.5 mg on Tuesday, Tuesday, Tuesday, Tuesday; 5 mg on Tuesday, Tuesday, . - Taking Coumadin at 16:00-16:30 daily. - Reports minimal intake of vitamin K-rich foods. - Managed per PCP Dr. Umanzor of [facility]; seeking referral to Coumadin Clinic in [place]. Aortic Valve Replacement: - Recent mechanical valve replacement; initial porcine valve placed in 2021. - History of aortic, mitral, and tricuspid regurgitation. - Follow-up with detective homicide squad in 6-8 weeks advised; next appointment with surgeon in [address] to re-evaluate aortic root. - Has current visit scheduled with Dr. Morris of [facility] on 01/18; desires to establish with detective homicide squad locally, preferably in [place]. Pleural Effusion: - Post-operative pleural effusion noted on recent chest X-ray. - Taking Lasix and potassium; in need of chest x-ray for re-evaluation in 1-2 weeks. - Experiencing mild dyspnea when ambulating. Type 1 Diabetes: - Managed with insulin pump (Humalog). - Last A1c: 6.7% prior to surgery. - Neuropathy present at baseline. - Last endocrinology visit 4-[address] Kristal Desai at [facility]. Hypothyroidism: - Managed with levothyroxine 150 mcg daily per portfolio manager. - Last thyroid function test reportedly really, really good. Vitamin D Deficiency: - Taking vitamin D 50,000 IU weekly; inconsistent adherence during summer months. Chronic Anemia: - History of anemia; no history of rectal bleeding, long-term PPI therapy, known malabsorption issues. - No history of gastrointestinal surgery. Substance Use: - Former smoker; denies current tobacco use. - History of crack cocaine and marijuana use; sober since 06/2018; received treatment at [facility] for 9 months; denies current drug use. - Denies heavy alcohol use. Anxiety and Depression: - History of anxiety and depression; currently managed with Lexapro and duloxetine. - Denies current suicidal ideation. Orthopedic Issues: - Experiencing nerve issues; scheduled to see Dr. Madison Regan at [facility] and Dr. Mejía at [facility]. - Under pain management with Dr. Alvarado Mujica in [place], [place]. Asthma: - History of asthma; denies current respiratory issues other than mild dyspnea. PAST MEDICAL HISTORY Diagnosis Date Acquired hypothyroidism Alcohol abuse sober since 2013 Anxiety and depression 04/04/2019 Cocaine abuse in remission ([facility]) last used 10/17/2014 Ex-smoker Ex-smoker Started at the age of 15 up to 1 PPD and quit 07/2018 Frozen shoulder 03/12/2014 History of drug abuse ([facility]) 04/04/2019 Cocaine and marijuana. Has been clean since 06/21/2018. 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 Tetrahydrocannabinol (THC) use disorder, mild, in sustained remission, in controlled environment, abuse Type 1 diabetes mellitus with diabetic polyneuropathy ([facility]) ACTIVE PROBLEM LIST Impingement Syndrome of Right Shoulder Type 1 Diabetes Mellitus With Diabetic Polyneuropathy ([facility]) Acquired Hypothyroidism Former Smoker Subaortic Membrane ([facility]) Mitral Regurgitation Alcohol Abuse History of Drug Abuse ([facility]) Mixed Anxiety and Depressive Disorder Dyspnea Dyslipidemia Obesity (Bmi 30-39.9) Discharge Planning Issues Atelectasis Post-Op Pain Sob (Shortness of Breath) Tricuspid Regurgitation Aortic Regurgitation Obesity, Class II, Bmi 35-39.9 Hypervolemia Encounter for Support and Coordination of Transition of Care Nicotine use disorder, F17.2 History of Asthma History of Cocaine Use Hld (Hyperlipidemia) Hypoglycemia Chronic Right Shoulder Pain Pain in Joint, Shoulder Region Substance Abuse ([facility]) Vitamin D Deficiency Type 1 Diabetes Mellitus Without Complication ([facility]) Homeless Cocaine Abuse ([facility]) Aortic Valve Disorder Class 1 Drug-Induced Obesity With Serious Comorbidity and Body Mass Index (Bmi) of 31.0 to 31.9 in Adult Pre-Op Testing Crack Cocaine Use 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 Postoperative Pulmonary Edema ([facility]) S/P Avr (Aortic Valve Replacement) Nonrheumatic Aortic Valve Stenosis Coagulopathy ([facility]) Stress Hyperglycemia Controlled Type 2 Diabetes Mellitus Without Complication, With Long-Term Current Use of Insulin ([facility]) Anticoagulation Management Encounter Type 1 Diabetes Mellitus With Hyperglycemia (Hcc) Insulin Pump in Place Obesity, Class I, Bmi 30-34.9 Correction Current Use of Anticoagulant Therapy Chronic Anemia Overweight With Body Mass Index (Bmi) of 29 to 29.9 in Adult Pleural Effusion On Right Current Outpatient Medications Medication Sig Dispense Refill ciclopirox (LOPROX) 0.77 % cream APPLY TOPICALLY TO THE AFFECTED AREA TWICE DAILY NEEDED FOR RASH furosemide (LASIX) 20 mg tablet Take 1 tablet by mouth once daily for 5 days. 5 tablet 0 potassium chloride ER (KLOR-CON) 20 mEq tablet Take 1 tablet by mouth once daily. 5 tablet 0 cyclobenzaprine (FLEXERIL) 5 mg tablet Take 1 tablet by mouth once daily as needed. 7 tablet 0 acetaminophen (TYLENOL) 500 mg tablet Take 1-2 tablets by mouth every 6 hours as needed for pain. Do not exceed 4000mg in 24 hours aspirin 81 mg chewable tablet Take 1 tablet by mouth once daily. [address] (PROTONIX) 20 mg tablet Take 1 tablet by mouth daily at 6 am for 14 days. 14 tablet0 polyethylene glycol 3350 17 gram/dose powder Take 17 g by mouth once daily as needed for constipation. Dissolve dose in 4 - 8 ounces of liquid and take as directed. To prevent constipation during post op recovery. Stop when no longer needed. 119 g 1 insulin lispro (HUMALOG U-100 INSULIN) 100 unit/mL injection Continue insulin pump with home settings Home pump settings: Medtronic 780G, Humalog Basal Rate: 00:00 = 1.25 units/hr 4:00 = 1.30 units/hr 7:00 = 1.50 units/hr 11:00 = 1.60 units/hr 18:00 = 1.40 units/hr 23:00 = 1.20 units/hr Insulin:Carbohydrate ratio: 00:00 1 units per 8.5 g carbohydrate 17:00 1 units per 7 g carbohydrate Correction bolus: 1 unit insulin lowers glucose 35 mg/dL, correct to a target blood glucose of 110-130 mg/dL cholecalciferol, Vitamin D3, (VITAMIN D3) 1,250 mcg (50,000 unit) cap capsule Take 50,000 Units by mouth one time a week. traZODone (DESYREL) 100 mg tablet Take 100 mg by mouth daily at bedtime. rosuvastatin (CRESTOR) 10 mg tablet Take 1 tablet by mouth daily at bedtime. 90 tablet 3 DULoxetine (CYMBALTA) 30 mg capsule Take 1 capsule by mouth once daily. 90 capsule 3 escitalopram oxalate (LEXAPRO) 20 mg tablet Take 1 tablet by mouth once daily. 90 tablet 3 warfarin (COUMADIN) 5 mg tablet Take 1 tablet by mouth once daily. Take one half tablet on 01/01. Check INR on 01/02. Further dosing per Primary Care Provider. Take by mouth daily as directed. 30 tablet 0 levothyroxine (SYNTHROID) 150 mcg tablet Take 1 tablet by mouth daily before breakfast. No current facility-administered medications for this visit. Medications were reviewed and verified. If pain assessment is 0, no action needed. If pain assessment is positive, please see assessment and plain. Social History Tobacco Use Smoking status: Former Current packs/day: 0.00 Average packs/day: 0.5 packs/day for 25.0 years (12.5 ttl pk-yrs) Types: Cigarettes Start date: 11/1996 Quit date: 11/2021 Years since quittin.1 Smokeless tobacco: Never Tobacco comments: nicotine lozenges daily Vaping Use Vaping status: current everyday user Substances: Nicotine, Flavoring Devices: Disposable Substance Use Topics Alcohol use: Not Currently Drug use: Not Currently Types: Crack Cocaine FAMILY HISTORY Problem Relation Age of Onset No Known Problems Mother No Known Problems Father No Known Problems Sister No Known Problems Sister Cancer Maternal Grandmother Heart Attack Paternal Grandfather Labs: - (Today) INR: 1.4 - (01/07/2025) - RBC: 3.67 times10^6/ microL - Hemoglobin: 11 g/dL - Hematocrit: 32.4% - Platelets: 490 times10^3/ microL - INR: 1.3 - (At time of hospital discharge) INR: 2.4 - (During hospitalization) INR: 2.0 - (12/19/2024) Hemoglobin A1c: 6.7 Tests: - (01/07/2025) EKG: Normal sinus, possible left atrial enlargement, borderline Imaging: - (01/07/2025) Chest X-ray: Improved perihilar reticular opacities in both lungs suggestive of improved interstitial edema, stable small to medium right pleural effusion, right bibasilar atelectasis,no left pleural effusion, no pneumothorax, mildly enlarged heart, stable post-surgical changes. Review of Systems Cardiovascular: (-) chest pain, (-) palpitations Respiratory: (+) exertional shortness of breath, (-) dyspnea at rest Gastrointestinal: (-) constipation, (-) diarrhea, (-) rectal bleeding, (-) reflux, (-) change in bowel habits Psychiatric: (-) anxiety, (-) depressed mood, (-) suicidal ideation Objective BP 124/86 Pulse 70 Temp (Src) 97.3 (Temporal) Resp 18 Ht 6' 4 (1.93m) Wt 241 lb (109.3kg) SpO2 97% BMI 29.35 kg/(m^2). Physical Exam GENERAL: NAD, alert and oriented. Overweight. SKIN: Unremarkable, no rash or skin lesions. HEAD: Normocephalic. EYES: PERRLA, EOMI, conjunctiva clear. EARS: External ears normal, canals clear, TM's normal. NOSE/SINUSES: Nares normal. Septum midline. OROPHARYNX: Lips, mucosa, and tongue normal, good dentition. No oral lesions noted. NECK: Supple, no lymphadenopathy, normal thyroid, no carotid bruits. LUNGS: Clear to auscultation bilaterally, no wheezes/rhonchi/rales. HEART: Regular rate and rhythm, no murmurs. Mechanical valve click noted. EXTREMITIES: Normal, no deformities, no skin discoloration, no edema. ABDOMEN: Soft, non-tender with normoactive bowel sounds noted. NEURO: Awake, alert and oriented x3, cranial nerves II-XII grossly intact, normal gait, no involuntary motions. Assessment & Plan 1. Nonrheumatic aortic valve stenosis (I35.0) 2. S/P AVR (aortic valve replacement) (Z95.2) 3. Nonrheumatic mitral valve regurgitation (I34.0) 4. Nonrheumatic tricuspid valve regurgitation (I36.1) - Recent mechanical aortic valve replacement on 12/25/24; previous porcine valve replaced. - Follow-up with detective homicide squad in 6-8 weeks; urgent referral to [facility] initiated. - Scheduled follow-up with surgical team in [address] scan to assess aortic root. - No evidence of murmur on auscultation; heart rate regular with audible click of mechanical valve. 5. long term current use of anticoagulant therapy (Z79.01) 6. Anticoagulation management encounter (Z51.81) - Current warfarin dosage: 2.5 mg on Tuesday, Tuesday, and Tuesday; 5 mg on Tuesday, Tuesday, Tuesday, and . - Recent INR levels: 1.3 on Tuesday, 1.4 today; goal INR 2.0-3.0. - Adjusted warfarin dosage to 5 mg daily. - Referral to [facility] in [place]; follow-up in one week for INR check. - Prescription for 5 mg warfarin tablets for one month sent to [facility]. 7. Postoperative pulmonary edema (HCC) (J81.0) 8. Pleural effusion on right (J90) - Recent chest X-ray on 01/07/25 showed improved interstitial edema and stable small to medium rightpleural effusion. - Shortness of breath noted when ambulating. - Completing course of Lasix and potassium. - Ordered repeat chest X-ray and labs (CBC, CMP, potassium) in one week. - Advised increased consumption dietary iron; provided list of iron-rich foods. 9. Former smoker (Z87.891) 10. History of drug abuse (HCC) (F19.11) - No current smoking or drug use. - Past history of crack cocaine use; sober since June 2018. 11. History of asthma (Z87.09) - No current respiratory issues related to asthma. - Not currently requiring maintenance or rescue inhalers. 12. Type 1 diabetes mellitus with diabetic polyneuropathy (HCC) (E10.42) 13. Insulin pump in place (Z96.41) - Managed with insulin pump per portfolio manager Dr. Desai; recent A1c 6.7% prior to surgery. - Referral to endocrinology in [place] initiated per patient request. - Advised to discuss having backup insulin pens available. - Ordered urine test for albumin creatinine ratio screening. 14. Acquired hypothyroidism (E03.9) - Managed with levothyroxine 150 mcg daily. - Recent thyroid function tests reportedly stable. - Referral to endocrinology in [place] initiated per patient request. 15. Chronic anemia (D64.9) - Recent labs: RBC 3.67, hemoglobin 11 g/dL, hematocrit 32.4%. - Ordered CBC, iron studies, ferritin. - Advised diet high in iron-rich foods. 16. Dyslipidemia (E78.5) - Managed with rosuvastatin. - Low-fat, low-cholesterol diet advised. - Regular aerobic exercise encouraged. 17. Overweight with body mass index (BMI) of 29 to 29.9 in adult (E66.3) - Weight loss to improve BMI and overall health encouraged. 18. Mixed anxiety and depressive disorder (F41.8) - Managed with L, exapro and duloxetine. - No current suicidal ideation or plan. 19. Vitamin D deficiency (E55.9) - Previously on 50,000 units weekly; inconsistent adherence. - Ordered vitamin D level check. Luisito Zhong will return in 1 week(s) for INR with follow-up labs and chest x- ray results or sooner as needed. Discussed need for continued follow-up with all specialist providers, taking all medications as prescribed, increasing activity level as tolerated, and lowering sodium and processed foodintake at today's visit. Patient instructed to call the office or send a message via Medium with any questions related to this visit. Please Note: The patient consented to the use of [email or web address] software for draft documentation of thevisit consistent with [facility] s Notice of Privacy Practices. Portions of this office note have been created using [employer], a speech recognition software program, and may contain errors including punctuation, grammar, spelling, gender, and inappropriate words or phrases that pertain to the system. DATE: January 10, 2025 SIGNATURE: Robyn Taylor APRN.CNP * Stephani Cox LPN - 01/10/2025 3:40 PM EDT Patient is in office to establish care. Previous PCP: Dr. Erna Olguin Last visit with PCP: last week Specialists: Cardiology - Aortic Valve stenosis - S/P on 12/25/2024: Redo Sternotomy, Mechanical Bentall ([address] Composite Graft) Endocrinology - Type 1 diabetes, Acquired Hypothyroidism Patient is currently on Coumadin Therapy Range 2-3 Last INR = 1.3 on 01-07-2025 Today in Office: 1.4 Current Coumadin Dose: 2.5 mg Tuesday 5 mg Tuesday, Tuesday, Tuesday, , Patient denies missing doses of medication. Patient has history of drug and alcohol abuse. Patient would like a referral for Coumadin Clinic at [facility] on [facility]. Stephani Cox LPN January 10, 2025 3:52 PM documented in this encounterCleveland Clinic [facility]07-03-[facility]25 NoteHNO ID: [id number] Author: ROBYN TAYLOR APRN.SENIOR TECHNICAL ARCHITECT Service: ? Author Type: Nurse Practitioner Type: Progress Notes Filed: 01/14/2025 01:24 Note Text: This note was created using [employer] technology with patient consent. Subjective Luisito Zhong is a 44-year-old male with a history of aortic valve replacement, type 1 diabetes, and neuropathy, presenting for an initial visit to establish care, transitional care management with hospital follow-up after placement of mechanical aortic valve, and management of anticoagulation therapy. Anticoagulation Management: - Recent mechanical aortic valve placement on 12/25/24 at [facility] per Dr. 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 - Discharged on 12/31/24 on Coumadin 5 mg daily. - Current INR goal: 2.0-3.0. - Recent INR readings: 2.0 at discharge, 2.4 two days post-discharge, 1.3 on Tuesday, 1.4 today. - Current Coumadin regimen: 2.5 mg on Tuesday, Tuesday, and Tuesday; 5 mg on Tuesday, Tuesday, Tuesday, and . - Previous regimen: 2.5 mg on Tuesday, Tuesday, Tuesday, Tuesday; 5 mg on Tuesday, Tuesday, . - Taking Coumadin at 16:00-16:30 daily. - Reports minimal intake of vitamin K-rich foods. - Managed per PCP Dr. Umanzor of [facility]; seeking referral to Coumadin Clinic in [place]. Aortic Valve Replacement: - Recent mechanical valve replacement; initial porcine valve placed in 2021. - History of aortic, mitral, and tricuspid regurgitation. - Follow-up with detective homicide squad in 6-8 weeks advised; next appointment with surgeon in [address] to re-evaluate aortic root. - Has current visit scheduled with Dr. Morris of [facility] on 01/18; desires to establish with detective homicide squad locally, preferably in [place]. Pleural Effusion: - Post-operative pleural effusion noted on recent chest X-ray. - Taking Lasix and potassium; in need of chest x-ray for re-evaluation in 1-2 weeks. - Experiencing mild dyspnea when ambulating. Type 1 Diabetes: - Managed with insulin pump (Humalog). - Last A1c: 6.7% prior to surgery. - Neuropathy present at baseline. - Last endocrinology visit 4-[address] Kristal Desai at [facility]. Hypothyroidism: - Managed with levothyroxine 150 mcg daily per portfolio manager. - Last thyroid function test reportedly really, really good. Vitamin D Deficiency: - Taking vitamin D 50,000 IU weekly; inconsistent adherence during summer months. Chronic Anemia: - History of anemia; no history of rectal bleeding, long-term PPI therapy, known malabsorption issues. - No history of gastrointestinal surgery. Substance Use: - Former smoker; denies current tobacco use. - History of crack cocaine and marijuana use; sober since 06/2018; received treatment at [facility] for 9 months; denies current drug use. - Denies heavy alcohol use. Anxiety and Depression: - History of anxiety and depression; currently managed with Lexapro and duloxetine. - Denies current suicidal ideation. Orthopedic Issues: - Experiencing nerve issues; scheduled to see Dr. Madison Regan at [facility] and Dr. Mejía at [facility]. - Under pain management with Dr. Alvarado Mujica in [place], [place]. Asthma: - History of asthma; denies current respiratory issues other than mild dyspnea. 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 Has been clean since 06/21/2018. Went to treatment at [facility] for 9 months Mitral regurgitation Murmur Rotator cuff syndrome 06/18/2015 Subaortic membrane (HCC) with stenosis Tetrahydrocannabinol (THC) use disorder, mild, in sustained remission, in controlled environment, abuse Type 1 diabetes mellitus with diabetic polyneuropathy (HCC) ACTIVE PROBLEM LIST Impingement Syndrome of Right Shoulder Type 1 Diabetes Mellitus With Diabetic Polyneuropathy (Hcc) Acquired Hypothyroidism Former Smoker Subaortic Membrane (Hcc) Mitral Regurgitation Alcohol Abuse History of Drug Abuse (Hcc) Mixed Anxiety and Depressive Disorder Dyspnea Dyslipidemia Obesity (Bmi 30-39.9) Discharge Planning Issues Atelectasis Post-Op Pain Sob (Shortness of Breath) Tricuspid Regurgitation Aortic Regurgitation Obesity, Class II, Bmi 35-39.9 Hypervolemia Encounter for Support and Coordination of Transition of Care Nicotine use disorder, F17.2 History of Asthma History of Cocaine Use Hld (Hyperlipidemia) Hypoglycemia Chronic Right Shoulder Pain Pain in Joint, Shoulder Region Substance Abuse (Hcc) Vitamin D Deficiency Type 1 Diabet (more content not included)...[facility]07-03-2025 Instructions* Patient Instructions* Robyn Taylor APRN.SENIOR TECHNICAL ARCHITECT - 01/10/2025 4:41 PM EDT - Take Coumadin (warfarin) 5 mg by mouth once daily; refill for one month sent to [facility]. - Return in one week for a follow-up visit to review your INR, lab results, and chest x-ray. - Referral placed to the [place] [facility]; call them to confirm the order and attend if theycan see you sooner, then let us know. - Complete these tests before or at your follow-up appointment at [place] lab/radiology ([facility]) or your [place] facility: - CBC (complete blood count) - CMP (comprehensive metabolic panel) - Iron studies - Potassium level - Vitamin D level - Urine protein test - Chest x-ray - Fast 12 hours before these labs (water or black coffee OK). - Finish your current potassium 20 mEq once daily through Tuesday; labs will follow completion of this dose. - Stop pantoprazole after your 14-day supply unless you develop reflux symptoms. If you develop symptoms, please contact the office. - Referral sent for endocrinology in [place] (diabetes pump and thyroid management); if you haven tbeen contacted within one week, call our office. - Referral sent to [facility] for general cardiology; schedule an appointment as soon as possible. - Schedule a dilated diabetic eye exam and ask your eye doctor to fax the report to [phone]. - Incorporate iron-rich foods into your diet; refer to the handout provided. - Continue your other home medications: - Insulin pump (with Humalog) - Levothyroxine 150 mcg daily - Rosuvastatin - Lexapro and duloxetine - Low-dose aspirin - Tylenol as needed - Plan a routine well visit in spring once labs and imaging remain stable. Labs are to be completed at the urgent care in the front of this building or any [facility] lab facility. Urgent care lab is open 7 days per week from 7 am to 8 pm on weekdays and 9 am to 5 pm on weekends with the exception of some holidays. An appointment is not necessary but can be scheduled via [facility] if desired. Take all medications as prescribed. Continue to follow with specialist providers. Healthy diet and regular aerobic exercise recommended. Please call the office at [phone] Option 4 or send a direct message via Medium with any questions related to your visit today. Time throughout the day is reserved for patients with scheduled appointments. Please kindly allow 2-3 business days for staff to respond to phone calls or Medium messages. documented in this encounterCleveland Clinic [facility]07-03-2025 NoteHNO ID: [id number] Author: STEPHANI COX LPN Service: ? Author Type: LICENSED NURSE Type: Progress Notes Filed: 01/14/2025 01:24 Note Text: Patient is in office to establish care. Previous PCP: Dr. Erna Olguin Last visit with PCP: last week Specialists: Cardiology - Aortic Valve stenosis - S/P on 12/25/2024: Redo Sternotomy, Mechanical Bentall ([address] Composite Graft) Endocrinology - Type 1 diabetes, Acquired Hypothyroidism Patient is currently on Coumadin Therapy Range 2-3 Last INR = 1.3 on 01-07-2025 Today in Office: 1.4 Current Coumadin Dose: 2.5 mg Tuesday 5 mg Tuesday, Tuesday, Tuesday, , Patient denies missing doses of medication. Patient has history of drug and alcohol abuse. Patient would like a referral for Coumadin Clinic at [facility] on [facility]. Stephani Cox LPN January 10, 2025 3:52 PMSt. [facility]07-03-2025 Telephone encounter Note* Telephone Encounter - Karen Alejandro - 01/10/2025 1:02 PM EDT J-4 Desk called to request for the pt that Dr. Diaz writes a referral to the [facility] coumadin clinic, as pt is moving. Pt has an appt with a new PCP on 02/27 and says that PCP can take it over once he's established. Karen Alejandro Diplomatic Courier II January 10, 2025 1:04 PM [facility]07-01-2025 Telephone encounter Note* Telephone Encounter - Delfina Chaney PA-C - 01/08/2025 2:59 PM EDT Confirmed with pharmacy they have Flexeril script and it is ready for pickle cutter. Pt made aware. [facility]07-01-2025 Miscellaneous Notes* Telephone Encounter - Delfina Chaney PA-C - 01/08/2025 2:59 PM EDT Confirmed with pharmacy they have Flexeril script and it is ready for pickle cutter. Pt made aware. * Telephone Encounter - Sara Pedraza APRN.QAMAR - 01/08/2025 12:35 PM EDT pt called states was to have a water pill after labs were back & he saw labs were back this entry writer reviewed chart discussed labs with pt r/t diuretic - will extend lasix & k+ x 5 days - cont care plan as discussed in visit yesterday r/t coumadin - family Dr is managing coumadin -referred to coumadin clinic per pt PCP already called and addressed INR today finally - pt states flexeril Rx didn't go through to pharmacy - asking for it to be resent discussed will defer flexeril to Delfina - pt agreeable Please review/advise r/t flexeril - Thank you! documented in this encounterCleveland Clinic [facility]07-01-2025 Telephone encounter Note * Telephone Encounter - Sara Pedraza APRN.CNP - 01/08/2025 12:35 PM EDT pt called states was to have a water pill after labs were back & he saw labs were back this entry writer reviewed chart discussed labs with pt r/t diuretic - will extend lasix & k+ x 5 days - cont care plan as discussed in visit yesterday r/t coumadin - family Dr is managing coumadin -referred to coumadin clinic per pt PCP already called and addressed INR today finally - pt states flexeril Rx didn't go through to pharmacy - asking for it to be resent discussed will defer flexeril to Delfina - pt agreeable Please review/advise r/t flexeril - Thank you! [facility]06-30-2025 Instructions* Patient Instructions* Delfina Chaney PA-C - 01/07/2025 11:12 AM EDT Images from the original note were not included. Follow up with primary care doctor in 1-2 weeks and to reassess pulmonary status, anemia, chemistries with a CXR, CMP, CBC. Follow up with detective homicide squad in 6-8 weeks. documented in this encounterCleveland Clinic [facility]or Hospital06-30-2025 History of Present illness Narrative* Junior Young RT(R) - 01/07/2025 10:15 AM EDT Radiology Service Progress Note PATIENT NAME: Luisito Zhong DATE OF SERVICE: January 07, 2025 TIME: 10:16 AM PATIENT IDENTITY VERIFICATION COMPLETED USING TWO (2) IDENTIFIERS: Name and Date of confirmedby patient verbally. FALL SCREENING: Has the patient had 2 falls in the last year or 1 fall with injury or currently using an Ambulatory Assistive Device (Walker, Cane, Wheelchair, Crutches, etc.)? No PATIENT GENDER DATA: Assigned male at PATIENT RELEVANT IMPLANT DATA REVIEWED: Not Applicable PATIENT PRESENTS WITH AN IMPLANTABLE OR ATTACHED TIME ANALYSIS CLERK: medtronic cgm shielded and insulinpump removed during xray RADIOLOGY DEPARTMENT: General X-ray: Exam(s) Completed: Chest X-Ray PERIPHERAL IV DATA: Not applicable SIGNED BY: RT Macario(R) January 07, 2025 10:16 AM documented in this encounterCleveland Clinic [facility]06-30-[facility] History of Present illness Narrative* Delfina Chaney PA-C - 01/07/2025 9:35 AM EDT Images from the original note were not included. [facility] Department of Cardiovascular Medicine DEPARTMENT OF CARDIAC SURGERY OUTPATIENT VISIT DATE January 07, 2025 OUTPATIENT VISIT TYPE POSTOPERATIVE Luisito Zhong is a 44 year old male who presents who is here for post operative follow up HPI: S/P on 12/25/2024: Redo Sternotomy, Mechanical Bentall ([address] Composite Graft) Surgeon: Dr Arias Discharged on 12/31/24 PAST MEDICAL HISTORY Diagnosis Date Acquired hypothyroidism Alcohol abuse sober since 2013 Anxiety and depression 04/04/2019 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 Has been clean since 06/21/2018. 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 Tetrahydrocannabinol (THC) use disorder, mild, in sustained remission, in controlled environment, abuse Type 1 diabetes mellitus with diabetic polyneuropathy ([facility]) PAST SURGICAL HISTORY Procedure Laterality Date HIP SURGERY HX Right PAST SURGICAL HISTORY OF Left shoulder scope PAST SURGICAL HISTORY OF 12/2018 aortic valve surgery to help open up REVISE MEDIAN N/CARPAL TUNNEL SURG Bilateral RT ELBOW CUBITAL TUNNEL ONLY Right SHOULDER SURGERY HX Right x4 ALLERGIES Allergen Reactions Hydromorphone Itching Tramadol Other: See Comments Burning skin Current Outpatient Medications Medication Sig acetaminophen (TYLENOL) 500 mg tablet Take 1-2 tablets by mouth every 6 hours as needed for pain. Do not exceed 4000mg in 24 hours aspirin 81 mg chewable tablet Take 1 tablet by mouth once daily. cyclobenzaprine (FLEXERIL) 5 mg tablet Take 1 tablet by mouth two times a day as needed for pain. pantoprazole DR (PROTONIX) 20 mg tablet Take 1 tablet by mouth daily at 6 am for 14 days. polyethylene glycol 3350 17 gram/dose powder Take 17 g by mouth once daily as needed for constipation. Dissolve dose in 4 - 8 ounces of liquid and take as directed. To prevent constipation during post op recovery. Stop when no longer needed. senna-docusate (SENNA-S) 8.6-50 mg per tablet Take 1 tablet by mouth two times a day. To prevent constipation during post op recovery. Stop when no longer needed. warfarin (COUMADIN) 5 mg tablet Take one half tablet on 01/01. Check INR on 01/02. Further dosing perPrimary Care Provider. Take by mouth daily as directed. insulin lispro (HUMALOG U-100 INSULIN) 100 unit/mL injection Continue insulin pump with home settings Home pump settings: Medtronic 780G, Humalog Basal Rate: 00:00 = 1.25 units/hr 4:00 = 1.30 units/hr 7:00 = 1.50 units/hr 11:00 = 1.60 units/hr 18:00 = 1.40 units/hr 23:00 = 1.20 units/hr Insulin:Carbohydrate ratio: 00:00 1 units per 8.5 g carbohydrate 17:00 1 units per 7 g carbohydrate Correction bolus: 1 unit insulin lowers glucose 35 mg/dL, correct to a target blood glucose of 110-130 mg/dL furosemide (LASIX) 20 mg tablet Take 1 tablet by mouth every other day in the morning for 4 doses. Patient should start on January 01, 2025. potassium chloride (K-TAB) 10 mEq tablet Take 1 tablet by mouth every other day in the morning for 4 doses. Take potassium with furosemide. Do not take if furosemide is stopped or held Patient shouldstart on January 01, 2025. levothyroxine (SYNTHROID) 175 mcg tablet Take 175 mcg by mouth daily before breakfast. cholecalciferol, Vitamin D3, (VITAMIN D3) 1,250 mcg (50,000 unit) cap capsule Take 50,000 Units by mouth one time a week. traZODone (DESYREL) 100 mg tablet Take 100 mg by mouth daily at bedtime. rosuvastatin (CRESTOR) 10 mg tablet Take 1 tablet by mouth daily at bedtime. DULoxetine (CYMBALTA) 30 mg capsule Take 1 capsule by mouth once daily. escitalopram oxalate (LEXAPRO) 20 mg tablet Take 1 tablet by mouth once daily. No current facility-administered medications for this visit. Chief Complaints: I still have back pain but it is relieved with muscle relaxants Discharge Post Operative Course: Pain scale :controlled with muscle relaxants Appetite: no issues with eating Activity: walking often Elimination: normal, no constipation , urination is normal Sleep: no issues mentioned Mood: normal Incisions/Wounds: healing well Review of Systems: HEENT: Negative for fevers since discharge Cardiac: denies angina, edema or palpitations Respiratory: + HENDRICKS especially with humidity, -orthopnea, PND Musculoskeletal: denies joint pain or edema Neuro: He gets transient light headed when he stands up quickly. He does not wear compression socks, Denies neurological complaints Physical Exam: BP 106/68 Pulse 84 Temp 36.7 C (98.1 F) (Oral) Ht 193 cm (6' 4) Wt 110.5 kg (243 lb 9.6 oz) SpO2 96% BMI 29.65 kg/m Appearance: well groomed, in no acute distress Neck: No neck vein distention Cardiac: regular S1, S2, systolic murmur grade II, No rub Lungs: Clear breath sounds bilaterally with rales bilateral posterior bases Abdomen: soft, non tender, non-distended, obese, Normal bowel sounds Extremities: Edema: trace bilateral ankles Sternum: stable, no click Sternotomy site: healing, clean, dry and intact, no cellulitis Wound: NA SV Preston sites: NA Radial Artery Preston site: NA Procedures: Sutures removed from chest tube sites without difficulty. IMPRESSION & PLAN: -S/P on 12/25/2024: Redo Sternotomy, Mechanical [place] ([address] Composite Graft) Surgeon: Dr Arias Discharged on 12/31/24 Tests and Coumadin Dosing Reviewed Today EKG: Procedure Date : Jan 07 2025 10:09:27 Edit Date : Jan 07 2025 10:10:41 Diagnosis: NORMAL SINUS RHYTHM POSSIBLE LEFT ATRIAL ENLARGEMENT BORDERLINE ECG CXR my interpretation while formal read is pending is small/mod left pleural effusion slightly increased compared with CXR from 12/30 Labs pending. Today incisions are healing well. He has established coumadin management with Dr. Umanzor. Plan: continue asa. No metoprolol due to junctional rhythm. Warfarin with INR goal of 2-[address] Umanzor. Follow up with primary care doctor in 1-2 weeks and to reassess pulmonary status, anemia, chemistries with a CXR, CMP, CBC. Follow up with detective homicide squad in 6-8 weeks. Follow up w/ Dr. Arias in 3 months w/ CTA (requested) -Junctional rhythm post op rate 50-60s after starting metoprolol. Today NSR Plan: no BB d/t junctional rhythm after starting BB as above. 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 Small/mod left pleural effusion slightly increased compared with CXR from12/30. 108.5Kg 12/25/2024 110.5Kg 01/07/25 Plan: follow CXR and CMP results. -DM type 1. HGA1C: 6.7 Insulin pump LUCRECIA Cannon. Summary: Post op care and discharge orders reviewed with the patient- all questions were answered. Surgical sites healing without complication Discussed new medications, dosage, route of administration and side effects Reviewed walking program at home Reviewed diet guidelines for recovery from surgery Return to the clinic prn with signs or symptoms of infection, fevers, SOB, or pleural effusion SBE prophylaxis reviewed Discussed wound care Delfina Chaney PA-C 01/07/25 1300 Addendum: Anemia is stable, elevated platelets expected. CXR stable slightly widened mediastinum similar to previous post op CXRs. Stable small to medium rt pleural effusion. INR 1.3 Plan: Lasix 20mg daily and potassium 20meq daily x 5 days. Repeat CXR, CMP in a week or two. Pt to contact PCP to adjust warfarin. Unable to reach by phone, left message on answering machine and Medium. Latest Reference Range & Units 01/07/25 10:28 Sodium 136 - 144 mmol/L 138 Potassium 3.7 - 5.1 mmol/L 4.8 Chloride 98 - 107 mmol/L 104 CO2 22 - 30 mmol/L 25 BUN 9 - 24 mg/dL 14 Creatinine 0.73 - 1.22 mg/dL 0.93 Glucose 74 - 99 mg/dL 197 (H) Protein, Total 6.3 - 8.0 g/dL 6.5 Calcium 8.5 - 10.2 mg/dL 9.0 Albumin 3.9 - 4.9 g/dL 3.3 (L) Bilirubin, Total 0.2 - 1.3 mg/dL 0.5 Alkaline Phosphatase 38 - 113 U/L 81 ALT 10 - 54 U/L 31 AST 14 - 40 U/L 38 Anion Gap 8 - 15 mmol/L 9 (H): Data is abnormally high (L): Data is abnormally low Latest Reference Range & Units 01/07/25 10:28 WBC 3.70 - 11.00 k/uL 9.28 RBC 4.20 - 6.00 m/uL 3.67 (L) Hemoglobin 13.0 - 17.0 g/dL 11.0 (L) Hematocrit 39.0 - 51.0 % 32.4 (L) Platelet Count 150 - 400 k/uL 490 (H) MCV 80.0 - 100.0 fL 88.3 MCH 26.0 - 34.0 pg 30.0 MCHC 30.5 - 36.0 g/dL 34.0 MPV 9.0 - 12.7 fL 9.1 RDW-CV 11.5 - 15.0 % 12.9 (L): Data is abnormally low (H): Data is abnormally high Latest Reference Range & Units 01/07/25 10:28 PT Sec 9.7 - 13.0 sec 13.4 (H) PT INR 0.9 - 1.3 1.3 (H): Data is abnormally high Delfina Chaney PA-C 01/08/2025 1:31 PM documented in [facility] encounterC[facility] Note [facility] 12-28-2024 History of Present illness Narrative* Jared Alfonso MD - 12/28/2024 12:00 PM EDT documented in this encounterC[facility]06-[facility]-2025 NoteHNO ID: [id number] Author: JARED ALFONSO MD Service: ? Author Type: Physician Type: Progress Notes Filed: 12/28/2024 12:01 Note Text:[facility]-27-20[facility]25 History of Present illness Narrative* Kathryn Villalba, Research Coordinator - 12/25/2024 6:47 PM EDT Images from the original note were not included. IRB [id number]: Meenakshi Cmwwo-sz-Owzs Hemostasis Monitoring and Perioperative Blood and Blood ComponentTransfusion during High-Risk Complex Cardiac Surgery: A Randomized Clinical Trial PI: María Elena Barry MD On December 25, 2024, we collected 2.7 cc of blood from Luisito Zhong on ICU arrival. The sample was processed by [employer]. The results showed: According to the protocol study, the following treatment Platelets was suggested as outlined below: Kathryn Villalba Clinical Research Fellow [facility] documented in this encounterCleveland Clinic [facility]06-17-[facility]25 [facility] History of Present illness Narrative* Stacia Pryor, Research Coordinator - 12/25/2024 12:20 PM EDTSummary: IRB : [employer] Iobee-oh-Fplb Hemostasis Monitoring and Perioperative Blood and Blood Component Transfusion during High-Risk Images from the original note were not included. IRB : [employer] Oilsy-ns-Iann Hemostasis Monitoring and Perioperative Blood and Blood ComponentTransfusion during High-Risk Complex Cardiac Surgery: A Randomized Clinical Trial PI: María Elena Barry MD On December 25, 2024, we collected 2.7 cc of blood from Luisito Zhong per study protocol 10-20 minutesafter protamine administration. The sample was processed by [employer]. The results showed: According to the protocol study, platelets and cryoprecipitate was suggested as outlined below: Stacia Pryor Research Dominique Clinical Research Fellow [facility] documented in this encounterCleveland Clinic [facility]06-17-2025 [facility]-2025 History of Present illness Narrative* Stacia Pryor Research Coordinator - 12/25/2024 11:42 AM EDTSummary: IRB : [employer] Tyyum-ld-Vxyr Hemostasis Monitoring and Perioperative Blood and Blood C omponent Transfusion Images from the original note were not included. IRB 24: [employer] Lpycs-fj-Ygbt Hemostasis Monitoring and Perioperative Blood and Blood ComponentTransfusion during High-Risk Complex Cardiac Surgery: A Randomized Clinical Trial PI: María Elena Barry MD On December 25, 2024, we collected 2.7 cc of blood per protocol from Luisito Zhong 15 minutes before separation from cardiopulmonary bypass. The sample was processed by [employer]. The results showed: According to the protocol study,platelets and cryoprecipitate was suggested as outlined below: Stacia Pryor Research Coordinator Clinical Research Fellow [facility] documented in this encounterCleveland Clinic [facility]06-17-2025 [facility]-2025 History of Present illness Narrative* Stacia Pryor Research Coordinator - 12/25/2024 11:27 AM EDTSummary: IRB [id number]: [employer] Xxsid-kx-Vwli Hemostasis Monitoring and Perioperative Blood and Blood C omponent Images from the original note were not included. IRB [id number]: [employer] Vleuz-xr-Myyj Hemostasis Monitoring and Perioperative Blood and Blood ComponentTransfusion during High-Risk Complex Cardiac Surgery: A Randomized Clinical Trial PI: María Elena Barry MD On December 25, 2024, we collected 2.7cc of baseline blood from the patient Luisito Zhong per protocolat time point between induction and incision. The sample was processed by [employer]. The resultsare showed below: Stacia Pryor Research Coordinator Clinical Research Fellow [facility] documented in this encounterC[facility]06-17-2025 [facility]-2025 [facility]06[facility]-20[facility]-20[facility] History of Present illness Narrative* Stacia Pryor Research Coordinator - 12/25/2024 7:14 AM EDTSummary: study IRB#: [id number]: [employer] Izvjh-wy-Fpvt Hemostasis Monitoring and Perioperative Blood and Blood Component Transfusion during High-Risk Complex Team Communication Regarding Research Enrollment This is a research study note. Patient assessments recorded here should not guide either Clinical care or clinical decision-making The research team and PI have communicated with the care team regarding the patient Luisito Zhong and their participation in the study IRB#: [id number]: Meenakshi Bvars-cs-Hvez Hemostasis Monitoring and Perioperative Blood and Blood Component Transfusion during High-Risk Complex Cardiac Surgery: A Randomized Clinical Trial. The team is aware of the study intervention and the study team's assessment for eligibility per [facility] approved protocol. The team is aware that the patient is to be monitored for any adverse events for the extent of their participation in this study and that the discovery of events or any concerns are to relayed to the [facility] study PI María Elena Barry MD. Specific details related to the study intervention can be found under the research active link. This is one of the dial-buttons adjacent to the patient photo in the top left-hand corner of the patient chart; depicted on the link is a conical/Erlenmeyer flask with a small flag icon. Additionally, my contact information is provided below and I am available at any time to answer questions regarding the research study. I, along with the Anesthesiology Research [facility], thank the entire clinicalcare team for your collaboration. Inclusion Criteria 1. Age: Patient is an adult aged 18 years or older. 2. Surgery Type: Patient is scheduled for aortic surgery or high-risk cardiac surgery requiring cardiopulmonary bypass, specifically: -Reoperative surgery -Active endocarditis -Expected need for intraoperative circulatory arrest -Radiation heart disease -End-stage kidney disease requiring renal replacement therapy -Combination surgery involving more than one valve or valve plus CABG -Low left ventricular ejection fraction (EF < 30%) with potential need for mechanical circulatory support (e.g., intra-aortic balloon pump, ECMO, or percutaneous left ventricular assist device). The patient does not meet any of the following exclusion criteria: 1. Coagulation Disorders: No preoperative diagnosis of a pre-existing coagulation or bleeding disorder. 2. Abnormal Coagulation Parameters: No preoperative abnormal coagulation disorder (aPTT > 40 seconds in the absence of heparin therapy and/or platelet count below 100,000/uL). 3. Liver Disease: No history of liver disease, including cirrhosis, liver enzymes > 3x normal range, or elevated PT indicating abnormal liver synthetic function not explained by other comorbidities. 4. /: Patient is not or . 5. Blood Transfusions: Patient does not refuse to accept red blood cells and blood component transfusions. 6. Contraindications: No contraindications to proposed interventions. 7. Language and Comprehension: Patient is able to understand Algerian as a first language and can comprehend the study and/or consent forms. 8. Vulnerable Populations: Patient does not fall under vulnerable populations, including prisoners,human fetuses, and neonates. Stacia Pryor, Research Coordinator Research Fellow [facility]est[facility]iology [facility] documented in this encounterC[facility]06-15-2025 Telephone encounter Note * Telephone Encounter - Sendy Salinas RN - 12/23/2024 2:02 PM EDT CARDIOVASCULAR LAB INSTRUCTIONS: Readiness to Learn: Cognitive Ability: Alert and oriented Motivation To Learn: Interested Family/Significant Other Support: Unable to assess - Family not present Instruction Provided To: Patient Patient Learns Best By: Individual Instruction Factors Affecting Learning: None Physical Limitations Affecting Learning: None Learning Response: Procedure: Left Heart Diagnostic Pre procedure education topics: Arrival time/NPO Status/Medications/Travel Instructions/Restrictions Patient/Family Response Evaluation: Verbalizes understanding- instructed to be accompanied by adultdriver at discharge. Follow Up Plan and Medication: As directed by physician Instruction/Supplemental Material Given: Cardiac catheterization instructions, procedure information, hospital information, hotel information. Instructed By Sendy Salinas RN, RN. In Department of CARDIOLOGY. [facility]06-15-2025 Miscellaneous Notes* Telephone Encounter - Sendy Salinas RN - 12/23/2024 2:02 PM EDT CARDIOVASCULAR LAB INSTRUCTIONS: Readiness to Learn: Cognitive Ability: Alert and oriented Motivation To Learn: Interested Family/Significant Other Support: Unable to assess - Family not present Instruction Provided To: Patient Patient Learns Best By: Individual Instruction Factors Affecting Learning: None Physical Limitations Affecting Learning: None Learning Response: Procedure: Left Heart Diagnostic Pre procedure education topics: Arrival time/NPO Status/Medications/Travel Instructions/Restrictions Patient/Family Response Evaluation: Verbalizes understanding- instructed to be accompanied by adultdriver at discharge. Follow Up Plan and Medication: As directed by physician Instruction/Supplemental Material Given: Cardiac catheterization instructions, procedure information, hospital information, hotel information. Instructed By Sendy Salinas, RN, RN. In Department of CARDIOLOGY. documented in this encounterC[facility]06-14-2025 [facility]Way[facility]-2025 Note[facility]06-12-2025 History of Present illness Narrative* Kacie Smith RN - 12/20/2024 1:38 PM EDT AMBULATORY PATIENT EDUCATION READINESS TO LEARN Cognitive Ability: Alert and oriented Motivation To Learn: Interested Family Support: High - Very involved in pt care Instruction Provided To: Patient & Family Patient Learns Best By: Multiple Methods Factors Affecting Learning: None Physical Limitations Affecting Learning: None LEARNING RESPONSE Diagnosis: Valvular disease Education Topic: Pre-Op Open Heart Surgery Instructions Teaching Points: Logistics / Protocols /Complication Prevention Instruction/Supplemental Materials: Individual Instruction Patient/Family Response: Somewhat Follow up plan: Patient/Family to call [facility] with any further questions Referral (Recommendation): None Teach completed, topic: Patient educated to report to [facility] on 12/25/2024 for check in for upcoming scheduled surgery. documented in this encounterCleveland Clinic [facility]06-12-2025 NoteWay[facility]06-12-2025 History of Present illness Narrative* Dulce Maria Orosco DO - 12/20/2024 1:32 PM EDT Cardiothoracic Anesthesiology Preoperative Assessment Service Date: 12/20/2024 Service Time: 1:32 PM Primary Care Physician: Roscoe Umanzor MD, PhD Subjective Patient Entered Data: 12/20/2024 Cardiothoracic Surgery Pre-Op Questionnaire Previous anesthesia problems No Family history anesthesia problems No Blood consent Yes Esophageal history None Implanted devices No History difficult airway No Airway surgery No Ongoing pain issues Yes Pain medications No Heparin intolerance Yes Daily alcohol use No Illicit drug use Yes HPI: 44 year old male with PMH notable for: - DM, asthma, depression, aortic regurgitation, anxiety, dyslipidemia, cocaine abuse Pt presents for preoperative evaluation prior to Redox3:AVR. s/p redo subaortic membrane resection, Aortic Valve Replacement with root enlargement 25 inspiris and Tricuspid Valve Repair . Pt is currently asymptomatic without any chest pain, shortness of breath, recent weight loss, fever, chills, nausea/vomiting, diarrhea. Patient instructed to: - Follow surgical instruction regarding warfarin/ASA therapy - Continue: synthroid, crestor, cymbalta, lexapro, 1/2 long acting insulin - Hold: hold 1/2 dose of long acting insulin, vitamin D Pt denies any problems with prior anesthetics. We additionally discussed the anesthetic plan, what to expect, and any questions or concerns the patient may have had. Review no known heparin intolerance not taking anticoagulant/antiplatelet medication non-cardiac implantable electronic device(s) - Patient reports having a insulin pump. A device controller is available no known esophageal disorders blood transfusion consented - COVID-19 Immunization Status Completed or No Longer Recommended Covid-19 Vaccine Discontinued 12/02/2022 Frequency changed to Never by Sruthi Ambrosio APRN.SENIOR TECHNICAL ARCHITECT (Patient Preference) 11/05/2020 Imm Admin: COVID-19 original vaccine, full dose, monovalent (MODERNA) 10/09/2020 Imm Admin: COVID-19 original vaccine, full dose, monovalent (MODERNA) Only the first 3 history entries have been loaded, but more history exists. The patient has the following: ACTIVE PROBLEM LIST Impingement Syndrome of Right Shoulder Type 1 Diabetes Mellitus With Diabetic Polyneuropathy (Hcc) Acquired Hypothyroidism Former Smoker Subaortic Membrane (Hcc) Mitral Regurgitation Alcohol Abuse History of Drug Abuse (Hcc) Anxiety and Depression Dyspnea Dyslipidemia Obesity (Bmi 30-39.9) Discharge Planning Issues Atelectasis Post-Op Pain Sob (Shortness of Breath) Tricuspid Regurgitation Aortic Regurgitation Obesity, Class II, Bmi 35-39.9 Hypervolemia Encounter for Support and Coordination of Transition of Care Nicotine use disorder, F17.2 History of Asthma History of Cocaine Use Hld (Hyperlipidemia) Hypoglycemia Chronic Right Shoulder Pain Pain in Joint, Shoulder Region Substance Abuse (Hcc) Vitamin D Deficiency Type 1 Diabetes Mellitus Without Complication (Hcc) Homeless Cocaine Abuse (Hcc) Aortic Valve Disorder Class 1 Drug-Induced Obesity With Serious Comorbidity and Body Mass Index (Bmi) of 31.0 to 31.9 in Adult Pre-Op Testing PAST MEDICAL HISTORY Diagnosis Date Acquired hypothyroidism Alcohol abuse sober since 2013 Anxiety and depression 04/04/2019 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 Has been clean since 06/21/2018. Went to treatment at [facility] for 9 months Mitral regurgitation Murmur Rotator cuff syndrome 06/18/2015 Subaortic membrane (HCC) with stenosis Tetrahydrocannabinol (THC) use disorder, mild, in sustained remission, in controlled environment, abuse Type 1 diabetes mellitus with diabetic polyneuropathy ([facility]) PAST SURGICAL HISTORY Procedure Laterality Date HIP SURGERY HX Right PAST SURGICAL HISTORY OF Left shoulder scope PAST SURGICAL HISTORY OF 12/2018 aortic valve surgery to help open up REVISE MEDIAN N/CARPAL TUNNEL SURG Bilateral RT ELBOW CUBITAL TUNNEL ONLY Right SHOULDER SURGERY HX Right x4 FAMILY HISTORY Problem Relation Age of Onset No Known Problems Mother No Known Problems Father No Known Problems Sister No Known Problems Sister Cancer Maternal Grandmother Heart Attack Paternal Grandfather Social History Tobacco Use Smoking status: Every Day Current packs/day: 0.00 Average packs/day: 0.5 packs/day for 25.0 years (12.5 ttl pk-yrs) Types: Cigarettes Start date: 11/1996 Last attempt to quit: 11/2021 Years since quittin.1 Smokeless tobacco: Never Tobacco comments: nicotine lozenges daily Vaping Use Vaping status: current everyday user Substances: Nicotine, Flavoring Devices: Disposable Substance Use Topics Alcohol use: Not Currently Drug use: Yes Types: Crack Cocaine Comment: used last last night. Prior to Admission medications as of 12/20/24 1309 Medication Sig Last Dose Taking mupirocin (BACTROBAN) 2 % ointment Apply a small amount in each nostril using a cotton swab twice the day before surgery and once the morning of surgery. levothyroxine (SYNTHROID) 175 mcg tablet Take 1 tablet by mouth daily at 6 am. rosuvastatin (CRESTOR) 10 mg tablet Take 1 tablet by mouth daily at bedtime. cholecalciferol (VITAMIN D-3) 50 mcg (2,000 unit) tablet Take 1 tablet by mouth once daily. DULoxetine (CYMBALTA) 30 mg capsule Take 1 capsule by mouth once daily. escitalopram oxalate (LEXAPRO) 20 mg tablet Take 1 tablet by mouth once daily. insulin lispro (HUMALOG U-100 INSULIN) 100 unit/mL injection Inject up to 90 units per day via insulin pump. acetaminophen (TYLENOL) 500 mg tablet 1,000 mg. ibuprofen (MOTRIN) 800 mg tablet Take 1 tablet by mouth every 8 hours as needed for pain or fever (specify). No medication comments found. ALLERGIES Allergen Reactions Hydromorphone Itching Tramadol Other: See Comments Burning skin Objective Pain Assessment: Vitals: There were no vitals taken for this visit. Diagnostic tests reviewed for today's visit: Lab Value Units Date High Low HB 14.7 g/dL 12/19/2024 17.0 13.0 HCT 43.3 % 12/19/2024 51.0 39.0 WBC 6.43 k/uL 12/19/2024 11.00 3.70 PLT 209 k/uL 12/19/2024 400 150 NA 143 mmol/L 12/19/2024 144 136 K 4.6 mmol/L 12/19/2024 5.1 3.7 GLUC 100 mg/dL 12/19/2024 99 74 BUN 16 mg/dL 12/19/2024 24 9 CREAT 0.85 mg/dL 12/19/2024 1.22 0.73 CREAT 1.00 mg/dL 11/20/2024 1.4 0.7 PTSEC 11.1 sec 12/19/2024 13.0 9.7 INR 1.0 no uni* 12/19/2024 1.3 0.9 APTT 25.5 sec 12/19/2024 32.4 23.0 ALT 24 U/L 12/19/2024 54 10 AST 30 U/L 12/19/2024 40 14 TBILI 0.7 mg/dL 12/19/2024 1.3 0.2 TSH 0.915 mIU/L 12/19/2024 4.200 0.270 Lab Value Units Date High Low HCGQT No results within date range. UHCG No results within date range. HCG, BODY* No results within date range. Lab Value Units Date High Low ABORHD No results within date range. ABSCREEN No results within date range. Hemoglobin A1C (%) Date Value 12/19/2024 6.7 02/06/2024 9.9 12/07/2023 9.4 01/22/2022 7.7 Hemoglobin A1C (POCT) (%) Date Value 01/21/2023 10.0 07/21/2022 8.9 01/22/2022 8.1 Recent Results (from the past 8760 hours) XR CHEST 2V FRONTAL/LAT Collection Time: 12/19/24 11:48 AM Impression IMPRESSION: No acute radiographic abnormality. 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 Status post tricuspid valve repair. Journeyman Pipefitter: [facility] Transcribe Date/Time: Nov 21 2024 10:02A Dictated by : JAMSHID SMITH MD This examination was interpreted and the report reviewed and electronically signed by: JAMSHID SMITH MD on Nov 21 2024 10:13AM EST ECHO TRANSESOPHAGEAL Collection Time: 11/20/24 2:40 PM Impression CONCLUSIONS: - Exam indication: Evaluation of prosthetic valve with suspected dysfunction - The left ventricle is normal in size. Left ventricular systolic function is normal. EF = 55 5% (visual est.) - The right ventricle is normal in size. Right ventricular systolic function is normal. - Velazquez Tricuspid Valve Annuloplasty Ring (size #27). There is trace (trace - 1+) tricuspid valve regurgitation. - Inspiris prosthetic aortic valve (size #25). There is moderate (2+) aortic valve regurgitation due to prosthetic valve dysfunction likely related to prosthetic valve dysfunction. There is moderate aortic valve stenosis caused by restricted opening likely related to prosthetic valve dysfunction. Restricted opening of prosthetic aortic valve leaflets with planimetered 2D area of 1.7cm2 consistent with moderate stenosis (Clip 33-37). At least moderate 2+ prosthetic insufficiency with rapid deceleration time and eccentric ject (Clip 24, 25, 122). No evidence of flow reversal. - No evidence of subvalvular membrane with area of prior resection well visualized. No intracardiac gradient or flow acceleration. Patent LVOT on 3D reconstruction. - Valvular disease has progressed since prior intraoperative LAWSON. Prosthetic gradient better assessed with TTE performed earlier today--severe prosthetic valve dysfunction with stenosis and regurgitation demonstrated. No evidence of subvalvular membrane. * * * Final * * * ECHO Collection Time: 11/20/24 1:16 PM Impression CONCLUSIONS: - Exam indication: H/O AVR,TVr - The left ventricle is normal in size. Left ventricular systolic function is normal. EF = 55 5% (2D biplane) Normal left ventricular diastolic function. - The right ventricle is normal in size. Right ventricular systolic function is normal. - Post tricuspid valve repair. Hernandez MC3 Tricuspid Ring. There is trace tricuspid valve regurgitation. The peak gradient is 8 mmHg and the mean gradient is 3 mmHg. Prior mean was 4mmHg. Today's gradients obtained at HR of 77 bpm. - Inspiris prosthetic aortic valve (size #25). There is trace aortic valve regurgitation. The peak gradient is 61 mmHg, the mean gradient is 26 mmHg and the dimensionless valve index is 0.23. Prior peak/mean gradients were 32/17mmHg. Today's gradients are 61/26mmHg. - Exam was compared with the prior CC echocardiographic exam performed on 01/30/2022. Increase in AV gradients. * * * Final * * * XR CHEST 1V FRONTAL PORT Collection Time: 02/07/24 7:06 AM Impression IMPRESSION: Mild left perihilar atelectasis. Life support devices positioned as described. KUB OF THE ABDOMEN: INDICATION: Evaluate tubes, line, or lead position FINDINGS: The enteric tube terminates within the proximal stomach. No dilated bowel loops. IMPRESSION: The enteric tube terminates within the proximal stomach. Journeyman Pipefitter: [facility] Transcribe Date/Time: Feb 07 2024 7:11A Dictated by : RICHARD GARCIAS MD This examination was interpreted and the report reviewed and electronically signed by: RICHARD GARCIAS MD on Feb 07 2024 7:13AM EST Assessment No problem-specific Assessment & Plan notes found for this encounter. ANESTHESIA FINDINGS: Intubation History: No history of difficult intubation Significant Anesthesia Considerations: none Airway History: No history of difficult airway Prepared for Surgery: optimally prepared for surgery. The Following Tests/Procedures Have Been Initiated: Orders Placed This Encounter mupirocin (BACTROBAN) 2 % ointment Sig: Apply a small amount in each nostril using a cotton swab twice the day before surgery and oncethe morning of surgery. Dispense: 22 g Refill: 0 Order Comments: Supply patient with Q-tips and instruction sheet ASA Class: 4 Planned Anesthetic: general I - PHYSICAL EVALUATION AIRWAY Patient intubated: No. Tracheostomy tube not present Mallampati: II. TM distance: >3 FB. Neck ROM: full ROM without neurological symptoms. Mouth opening: adequate. Short neck: no. Thick neck: no Brizuela present: no Lip Bite Test: I Microretrognathia/Micronagthia/Recessed Chin: No DENTAL Dental findings: missing tooth/teeth. Dentures, upper: partial. Dentures, lower: partial. II - ANESTHESIA PLAN ASA Score: 4 Anesthetic Plan: general Airway type: ETT Beta Leodan Monitoring Plan Post Procedure Analgesic Plan Informed Consent Anesthetic risks, benefits, alternatives, personnel and consent discussed: yes. Patient / Responsible Alliance Party agrees to proceed: yes Patient / Surrogate agrees to blood products: Yes Discussed the possibility of lip / dental damage: yes Instructions Given to Patient: Instructions located in the after visit summary. Patient given verbal and written preop instructions and voices comprehension and compliance. Signature: Dulce Maria Orosco DO Patient Name: Luisito Zhong Date: December 20, 2024 Time: 1:32 PM Pager/Contact #: documented in [facility] encounterC[facility] History of Present illness Narrative* Kacie Smith RN - 12/20/2024 12:02 PM EDT CHART COPY-DO NOT DISCARD CARDIOVASCULAR SURGERY PRE-OPERATIVE ASSESSMENT NAME: Luisito Zhong Alert Notes: DATE: 12/20/2024 SEX: male : 1980 AGE: [age] year old Estimated body mass index is 29.58 kg/m as calculated from the following: Height as of an earlier encounter on 12/20/24: 193 cm (6' 4). Weight as of an earlier encounter on 12/20/24: 110.2 kg (243 lb). Patient scheduled for surgery on: 12/25/2024 [facility] MD: Dr. King CHIEF COMPLAINT: Pre-Op Open Heart Surgery MEDICATIONS: Current Outpatient Medications Medication Sig levothyroxine (SYNTHROID) 175 mcg tablet Take 1 tablet by mouth daily at 6 am. rosuvastatin (CRESTOR) 10 mg tablet Take 1 tablet by mouth daily at bedtime. cholecalciferol (VITAMIN D-3) 50 mcg (2,000 unit) tablet Take 1 tablet by mouth once daily. DULoxetine (CYMBALTA) 30 mg capsule Take 1 capsule by mouth once daily. escitalopram oxalate (LEXAPRO) 20 mg tablet Take 1 tablet by mouth once daily. insulin lispro (HUMALOG U-100 INSULIN) 100 unit/mL injection Inject up to 90 units per day via insulin pump. acetaminophen (TYLENOL) 500 mg tablet 1,000 mg. (Patient not taking: Reported on 12/19/2024) ibuprofen (MOTRIN) 800 mg tablet Take 1 tablet by mouth every 8 hours as needed for pain or fever (specify). No current facility-administered medications for this visit. 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 Has been clean since 06/21/2018. Went to treatment at [facility] for 9 months Mitral regurgitation Murmur Rotator cuff syndrome 06/18/2015 Subaortic membrane (HCC) with stenosis Tetrahydrocannabinol (THC) use disorder, mild, in sustained remission, in controlled environment, abuse Type 1 diabetes mellitus with diabetic polyneuropathy (HCC) PAST SURGICAL HISTORY Procedure Laterality Date HIP SURGERY HX Right PAST SURGICAL HISTORY OF Left shoulder scope PAST SURGICAL HISTORY OF 12/2018 aortic valve surgery to help open up REVISE MEDIAN N/CARPAL TUNNEL SURG Bilateral RT ELBOW CUBITAL TUNNEL ONLY Right SHOULDER SURGERY HX Right x4 Social History Tobacco Use Smoking status: Every Day Current packs/day: 0.00 Average packs/day: 0.5 packs/day for 25.0 years (12.5 ttl pk-yrs) Types: Cigarettes Start date: 11/1996 Last attempt to quit: 11/2021 Years since quittin.1 Smokeless tobacco: Never Tobacco comments: nicotine lozenges daily Vaping Use Vaping status: current everyday user Substances: Nicotine, Flavoring Devices: Disposable Substance Use Topics Alcohol use: Not Currently Drug use: Yes Types: Crack Cocaine Comment: used last last night. 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 Neurological Complaints RESP: currently tobacco use CARD: subaortic membrane with surgical resection x2 2018, 2021 and AVR and TVr with 2021 surgery, currently prosthetic AV stenosis GI: Denies Gastrointestinal Complaints : Denies complaints ENDO: hypothyroidism, DM 1 HEME: Denies Hematological complaints MUSC/SKEL: right frozen shoulder 2014 and currently, bilat carpal tunnel surgery, right shoulder surgery x4, cubital tunnel right x2, DDD in neck/back PVD: yes, bilat Varicose Veins: No BRUITS (Carotid): see cards note PULSES: Pedal Left 2 Right 2 NYHA CLASSIFICATION: FAMILY HISTORY OF CAD: No ? PERFUSION INDEX: na Pacer Check: NA CARDIAC EVALUATION: Cardiac Cath: Date - 12/24/2024 pending Ultrasound: Date - 12/19/2024 PFT: Date - 12/19/2024 ECHO: Last ECHO Result Conclusion ECHO Collected: 11/20/2024 1:16 PM (Final result) Impression: CONCLUSIONS: - Exam indication: H/O AVR,TVr - The left ventricle is normal in size. Left ventricular systolic function is normal. EF = 55 5% (2D biplane) Normal left ventricular diastolic function. - The right ventricle is normal in size. Right ventricular systolic function is normal. - Post tricuspid valve repair. Hernandez MC3 Tricuspid Ring. There is trace tricuspid valve regurgitation. The peak gradient is 8 mmHg and the mean gradient is 3 mmHg. Prior mean was 4mmHg. Today's gradients obtained at HR of 77 bpm. - Inspiris prosthetic aortic valve (size #25). There is trace aortic valve regurgitation. The peak gradient is 61 mmHg, the mean gradient is 26 mmHg and the dimensionless valve index is 0.23. Prior peak/mean gradients were 32/17mmHg. Today's gradients are 61/26mmHg. - Exam was compared with the prior CC echocardiographic exam performed on 01/30/2022. Increase in AV gradients. * * * Final * * * CT Scan: Last CT Result Conclusion CTA CHEST (GATED) W IVCON Exam End: 11/20/2024 3:44 PM (Final result) Impression: IMPRESSION: Status post bioprosthetic AVR, well-seated without leaflet calcification. Status post tricuspid valve repair. Journeyman Pipefitter: [facility] Transcribe Date/Time: Nov 21 2024 10:02A Dictated by : JAMSHID SMITH MD This examination was interpreted and the report reviewed and electronically signed by: JAMSHID SMITH MD on Nov 21 2024 10:13AM EST MRI: na CXR: XR CHEST 2V FRONTAL/LAT Result Date: 12/19/2024 IMPRESSION: No acute radiographic abnormality. Journeyman Pipefitter: [facility] Transcribe Date/Time: Dec 19 2024 2:34P Dictated by : CARO ESPAÑA MD This examination was interpreted and the report reviewed and electronically signed by: CARO ESPAÑA MD on Dec 19 2024 2:35PM EST EKG: Last EKG Result Conclusion ECG COMPLETE Collected: 12/19/2024 11:41 AM (Preliminary result) Impression: NORMAL SINUS RHYTHM NORMAL ECG Dental: Cleared ? Recent Labs 12/19/24 1203 WBC 6.43 HB 14.7 HCT 43.3 PLT 209 INR 1.0 APTT 25.5 PTSEC 11.1 NA 143 K 4.6 BUN 16 CREAT 0.85 Pre Op Instructions per protocol reviewed and handout given to patient . Patient Education completed and documented. Instructed to start Bactroban per protocol. Emotional support provided to patient and family. All questions and concerns adressed. Signature: Kacie Smith RN See Cardiology History and Physical dated 12/20/2024 documented in this encounterC[facility] History of Present illness Narrative* Jt King MD - 12/20/2024 9:15 AM EDT Images from the original note were not included. [facility] Department of Cardiovascular Medicine SECTION OF CLINICAL CARDIOLOGY OUTPATIENT VISIT DATE December 19, 2024 OUTPATIENT VISIT TYPE NEW PRIMARY CARE PHYSICIAN: Sruthi Ambrosio [address] [place] [address] REFERRING PHYSICIAN: Roscoe Arias [address] [facility] [id number] CHIEF COMPLAINT: Preoperative cardiac evaluation HISTORY OF PRESENT ILLNESS: Mr. Zhong is a 44 year old male who presents today for a cardiovascular medicine visit. Roscoe Esquivel MD 11/20/2024 He is a 44 year old male who is s/p redo subaortic membrane resection, Aortic Valve Replacement with root enlargement 25 inspiris and Tricuspid Valve Repair . LAWSON today shows normal EF with degeneration of Aortic Valve Replacement (2+ intravalvular AI) and moderate ; trace TR. Impression: Prosthetic valve degeneration Plan: I would recommend 3x redo Aortic Valve Replacement with mechanical valve. He is experiencing early . Given normal cors previously, he will only need a coronary CTA prior to scheduling. He is scheduled on 12/25/2024 Nursing Intake: Mr. Zhong is a 44 year old male from [place], [place] here today for cardiovascular evaluation related toaortic valve disease. He is schedule to have a redo AVR with Dr. Beavers on 12/25/2024. Luisito has a significant medical history of DM, asthma, depression, aortic regurgitation, anxiety,dyslipidemia, cocaine abuse. He reports the following symptoms shortness of breath, lightheadedness, dizziness, He denies chest pain, palpitations, syncope, PND, and edema at this time. The patient is a 44-year-old male with a history of aortic valve replacement, presenting for preoperative evaluation prior to redo aortic valve replacement. The patient reports significant exercise intolerance, characterized by marked fatigue and dyspnea. He also experiences diffuse joint pain. He denies any difficulty lying flat and has no peripheral edema. He has a history of aortic valve replacement, subaortic membrane resection, aortic root enlargement, and tricuspid valve repair. A recent TTE revealed severe prosthetic valve dysfunction with stenosis and regurgitation, a mean gradient of 26 mmHg, and a dimensionless valve index of 0.23. A LAWSON confirmed moderate stenosis and insufficiency of the prosthetic valve, with no evidence of a subvalvularmembrane. He is scheduled for a cardiac catheterization on December 24, followed by a redo aortic valve replacement on December 25. 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 Has been clean since 06/21/2018. Went to treatment at [facility] for 9 months Mitral regurgitation Murmur Rotator cuff syndrome 06/18/2015 Subaortic membrane (HCC) with stenosis Tetrahydrocannabinol (THC) use disorder, mild, in sustained remission, in controlled environment, abuse Type 1 diabetes mellitus with diabetic polyneuropathy (HCC) PAST SURGICAL HISTORY Procedure Laterality Date HIP SURGERY HX Right PAST SURGICAL HISTORY OF Left shoulder scope PAST SURGICAL HISTORY OF 12/2018 aortic valve surgery to help open up REVISE MEDIAN N/CARPAL TUNNEL SURG Bilateral RT ELBOW CUBITAL TUNNEL ONLY Right SHOULDER SURGERY HX Right x4 SOCIAL HISTORY Social History Tobacco Use Smoking status: Every Day Current packs/day: 0.00 Average packs/day: 0.5 packs/day for 25.0 years (12.5 ttl pk-yrs) Types: Cigarettes Start date: 11/1996 Last attempt to quit: 11/2021 Years since quittin.1 Smokeless tobacco: Never Tobacco comments: nicotine lozenges daily Vaping Use Vaping status: current everyday user Substances: Nicotine, Flavoring Devices: Disposable Substance Use Topics Alcohol use: Not Currently Drug use: Yes Types: Crack Cocaine Comment: used last last night. FAMILY HISTORY Problem Relation Age of Onset No Known Problems Mother No Known Problems Father No Known Problems Sister No Known Problems Sister Cancer Maternal Grandmother Heart Attack Paternal Grandfather ALLERGIES: ALLERGIES Allergen Reactions Hydromorphone Itching Tramadol Other: See Comments Burning skin MEDICATIONS: levothyroxine (SYNTHROID) 175 mcg tablet Take 1 tablet by mouth daily at 6 am. rosuvastatin (CRESTOR) 10 mg tablet Take 1 tablet by mouth daily at bedtime. DULoxetine (CYMBALTA) 30 mg capsule Take 1 capsule by mouth once daily. escitalopram oxalate (LEXAPRO) 20 mg tablet Take 1 tablet by mouth once daily. insulin lispro (HUMALOG U-100 INSULIN) 100 unit/mL injection Inject up to 90 units per day via insulin pump. ibuprofen (MOTRIN) 800 mg tablet Take 1 tablet by mouth every 8 hours as needed for pain or fever (specify). cholecalciferol (VITAMIN D-3) 50 mcg (2,000 unit) tablet Take 1 tablet by mouth once daily. acetaminophen (TYLENOL) 500 mg tablet 1,000 mg. (Patient not taking: Reported on 12/19/2024) REVIEW OF SYSTEMS: Positives in bold GENERAL: Negative for: Weight loss or gain, Fever or Chills, Weakness and Sleep difficulties. HEENT: Negative for: Headache, Impaired Vision, Glasses, Hearing Impairment, Ringing in Ears, Nosebleeds, Poor dental care, Bleeding Gums, Dentures NECK: Negative for: Swelling, Pain, Stiffness RESPIRATORY: Negative for: Cough, Blood in Sputum, Shortness of breath, Wheezing, Apnea GASTROINTESTINAL: Negative for: Trouble swallowing, Heartburn, Change in bowel habits, Blood in stool, Dark black stools MUSCULOSKELETAL: Negative for: Muscle or joint pain, Stiffness , Joint swelling NEUROLOGIC/PSYCHIATRIC: Negative for: Weakness, Paralysis, Numbness, Tingling, Tremor, Nervousness,Depressed mood, Memory loss SKIN: Negative for: Rashes, Itching HEMATOLOGICAL/LYMPHATIC: Negative for: Easy bruising , Easy bleeding ENDOCRINE: Negative for: Heat or cold intolerance, Excessive sweating, Frequent urination, Frequentthirst PHYSICAL EXAMINATION: BP 121/76 (BP Site: Right Arm) Pulse 77 Ht 193 cm (6' 4) Wt 110.2 kg (243 lb) SpO2 98% BMI 29.58 kg/m General: Well appearing, in no acute distress. Skin: No clubbing, no cyanosis. Eyes: Extra ocular movements intact Oropharynx: Teeth in good repair. Neck: No jugular venous distention, no carotid bruits, carotids have a normal upstroke, no palpablethyromegaly. Lungs: Clear to auscultation bilaterally, no wheezing or rhonchi. Heart: Regular rhythm, S1, S2 normal, no S3, no S4, no heaves, no rub and + blowing systolic murmur Abdomen: Soft, nontender, bowel sounds normal, no palpable organomegaly, no bruits. Extremities: No peripheral edema . Grade 2/4 distal pulses bilaterally. Neuro: Oriented to person, place and time, alert, cooperative, gait coordinated. Last 3 Encounter BP Readings: Date: BP: 12/19/2024 124/73 11/20/2024 126/70[sitting on edge of bed[ 03/27/2024 113/71 Last 3 Encounter Pulse Readings: Date: Pulse: 12/19/2024 86 11/20/2024 84 03/27/2024 86 Last 3 Encounter Wt Readings: Date: Wt: 12/19/2024 111.8 kg (246 lb 7.6 oz) 03/27/2024 99.8 kg (220 lb) 02/06/2024 102.1 kg (225 lb 1.4 oz) CARDIOVASCULAR MEDICINE TESTING: Electrocardiogram EKG 12/19/2024 LAWSON 11/20/2024 CONCLUSIONS: - Exam indication: Evaluation of prosthetic valve with suspected dysfunction - The left ventricle is normal in size. Left ventricular systolic function is normal. EF = 55 5% (visual est.) - The right ventricle is normal in size. Right ventricular systolic function is normal. - Velazquez Tricuspid Valve Annuloplasty Ring (size #27). There is trace (trace - 1+) tricuspid valve regurgitation. - Inspiris prosthetic aortic valve (size #25). There is moderate (2+) aortic valve regurgitation due to prosthetic valve dysfunction likely related to prosthetic valve dysfunction. There is moderate aortic valve stenosis caused by restricted opening likely related to prosthetic valve dysfunction. Restricted opening of prosthetic aortic valve leaflets with planimetered 2D area of 1.7cm2 consistent with moderate stenosis (Clip 33-37). At least moderate 2+ prosthetic insufficiency with rapid deceleration time and eccentric ject (Clip 24, 25, 122). No evidence of flow reversal. - No evidence of subvalvular membrane with area of prior resection well visualized. No intracardiac gradient or flow acceleration. Patent LVOT on 3D reconstruction. - Valvular disease has progressed since prior intraoperative LAWSON. Prosthetic gradient better assessed with TTE performed earlier today--severe prosthetic valve dysfunction with stenosis and regurgitation demonstrated. No evidence of subvalvular membrane. ECHO 11/20/2024 CONCLUSIONS: - Exam indication: H/O AVR,TVr - The left ventricle is normal in size. Left ventricular systolic function is normal. EF = 55 5% (2D biplane) Normal left ventricular diastolic function. - The right ventricle is normal in size. Right ventricular systolic function is normal. - Post tricuspid valve repair. Hernandez MC3 Tricuspid Ring. There is trace tricuspid valve regurgitation. The peak gradient is 8 mmHg and the mean gradient is 3 mmHg. Prior mean was 4mmHg. Today's gradients obtained at HR of 77 bpm. - Inspiris prosthetic aortic valve (size #25). There is trace aortic valve regurgitation. The peak gradient is 61 mmHg, the mean gradient is 26 mmHg and the dimensionless valve index is 0.23. Prior peak/mean gradients were 32/17mmHg. Today's gradients are 61/26mmHg. - Exam was compared with the prior CC echocardiographic exam performed on 01/30/2022. Increase in AV gradients. CTA CHEST 11/20/2024 IMPRESSION: Status post bioprosthetic AVR, well-seated without leaflet calcification. Status post tricuspid valve repair. Hemoglobin Date Value 12/19/2024 14.7 g/dL 03/27/2024 14.9 g/dL 02/07/2024 11.4 g/dL 04/07/2020 15.9 GM/DL Glucose Date Value 12/19/2024 100 mg/dL 03/27/2024 246 mg/dL 02/10/2024 233 mg/dL 04/07/2020 60 MG/DL 04/04/2014 97 mg/dL Potassium Date Value 12/19/2024 4.6 mmol/L 03/27/2024 4.1 mmol/L 02/10/2024 3.3 mmol/L 04/07/2020 5.0 MMOL/L 04/04/2014 4.0 mmol/L Creatinine Date Value 12/19/2024 0.85 mg/dL 03/27/2024 0.88 mg/dL 02/10/2024 0.56 mg/dL 04/07/2020 0.82 MG/DL 04/04/2014 1.00 mg/dL Creatinine (POCT) (mg/dL) Date Value 11/20/2024 1.00 BUN Date Value 12/19/2024 16 mg/dL 03/27/2024 18 mg/dL 02/10/2024 11 mg/dL 04/07/2020 9 MG/DL 04/04/2014 16 mg/dL Cholesterol, Total (MG/dL) Date Value 04/07/2020 162 Total Cholesterol, Nonfasting (mg/dL) Date Value 12/07/2023 187 12/31/2021 204 HDL Cholesterol (MG/DL) Date Value 04/07/2020 49 HDL Cholesterol, Nonfasting (mg/dL) Date Value 12/07/2023 66 12/31/2021 65 LDL Cholesterol, Calculated (MG/DL) Date Value 04/07/2020 99 LDL Cholesterol Calculated, Nonfasting (mg/dL) Date Value 12/07/2023 105 12/31/2021 114 Triglyceride Date Value 02/07/2024 408 mg/dL 04/07/2020 73 MG/DL Triglycerides, Nonfasting (mg/dL) Date Value 12/07/2023 80 12/31/2021 127 Last ECHO Result Conclusion ECHO Collected: 11/20/2024 1:16 PM (Final result) Impression: CONCLUSIONS: - Exam indication: H/O AVR,TVr - The left ventricle is normal in size. Left ventricular systolic function is normal. EF = 55 5% (2D biplane) Normal left ventricular diastolic function. - The right ventricle is normal in size. Right ventricular systolic function is normal. - Post tricuspid valve repair. Hernandez MC3 Tricuspid Ring. There is trace tricuspid valve regurgitation. The peak gradient is 8 mmHg and the mean gradient is 3 mmHg. Prior mean was 4mmHg. Today's gradients obtained at HR of 77 bpm. - Inspiris prosthetic aortic valve (size #25). There is trace aortic valve regurgitation. The peak gradient is 61 mmHg, the mean gradient is 26 mmHg and the dimensionless valve index is 0.23. Prior peak/mean gradients were 32/17mmHg. Today's gradients are 61/26mmHg. - Exam was compared with the prior echocardiographic exam performed on 01/30/2022. Increase in AV gradients. * * * Final * * * Last LAWSON Result Conclusion ECHO TRANSESOPHAGEAL Collected: 11/20/2024 2:40 PM (Final result) Impression: CONCLUSIONS: - Exam indication: Evaluation of prosthetic valve with suspected dysfunction - The left ventricle is normal in size. Left ventricular systolic function is normal. EF = 55 5% (visual est.) - The right ventricle is normal in size. Right ventricular systolic function is normal. - Velazquez Tricuspid Valve Annuloplasty Ring (size #27). There is trace (trace - 1+) tricuspid valve regurgitation. - Inspiris prosthetic aortic valve (size #25). There is moderate (2+) aortic valve regurgitation due to prosthetic valve dysfunction likely related to prosthetic valve dysfunction. There is moderate aortic valve stenosis caused by restricted opening likely related to prosthetic valve dysfunction. Restricted opening of prosthetic aortic valve leaflets with planimetered 2D area of 1.7cm2 consistent with moderate stenosis (Clip 33-37). At least moderate 2+ prosthetic insufficiency with rapid deceleration time and eccentric ject (Clip 24, 25, 122). No evidence of flow reversal. - No evidence of subvalvular membrane with area of prior resection well visualized. No intracardiac gradient or flow acceleration. Patent LVOT on 3D reconstruction. - Valvular disease has progressed since prior intraoperative LAWSON. Prosthetic gradient better assessed with TTE performed earlier today--severe prosthetic valve dysfunction with stenosis and regurgitation demonstrated. No evidence of subvalvular membrane. * * * Final * * * Last EKG Result Conclusion ECG COMPLETE Collected: 12/19/2024 11:41 AM (Preliminary result) Impression: NORMAL SINUS RHYTHM NORMAL ECG Last CT Result Conclusion CTA CHEST (GATED) W IVCON Exam End: 11/20/2024 3:44 PM (Final result) Impression: IMPRESSION: Status post bioprosthetic AVR, well-seated without leaflet calcification. Status post tricuspid valve repair. Journeyman Pipefitter: BOYD Transcribe Date/Time: Nov 21 2024 10:02A Dictated by : JAMSHID SMITH MD This examination was interpreted and the report reviewed and electronically signed by: JAMSHID SMITH MD on Nov 21 2024 10:13AM EST Labs: Tests: Imaging: Transesophageal Echocardiogram: - Restricted opening of the prosthetic valve consistent with moderate stenosis - Moderate prosthetic valve insufficiency - Severe prosthetic valve dysfunction with stenosis and regurgitation - No evidence of subvalvular membrane Transthoracic Echocardiogram: - Mean gradient: 61 - Mean gradient: 26 - Dimensionless valve index: 0.23 (severe) IMPRESSION: Mr. Zhong is a 44 year old male here for preoperative cardiac examination CTS Roscoe Arias MD 11/20/2024 He is a 44 year old male who is s/p redo subaortic membrane resection, Aortic Valve Replacement with root enlargement 25 inspiris and Tricuspid Valve Repair . LAWSON today shows normal EF with degeneration of Aortic Valve Replacement (2+ intravalvular AI) and moderate ; trace TR. Impression: Prosthetic valve degeneration Plan: I would recommend 3x redo Aortic Valve Replacement with mechanical valve. PLAN AND RECOMMENDATIONS: Patient is scheduled for aortic valve replacement on December 25. Recent echocardiogram shows severe aortic stenosis with a mean gradient of 61 mmHg, mean gradient of 26 mmHg, and a dimensionless valveindex of 0.23. Transesophageal echocardiogram revealed moderate stenosis and insufficiency of the prosthetic valve, with no evidence of subvalvular membrane. - Proceed with scheduled aortic valve replacement on December 25. - Patient to undergo cardiac catheterization on December 24 to rule out blocked arteries. - Patient to see anesthesia at 12:[address] BEAVERS 's test at 1:00 PM on the fourth floor. - Educated patient on post-operative management, including the need for Coumadin therapy and dietary restrictions. CONTACT INFORMATION: Jt King M.D, MPH, [facility] Joseline Powers Department of Cardiovascular Medicine [facility] Desk [id number] [address] Office Office Appointments: [phone] documented in this encounterCleveland [facility]06-12-[facility] NoteHNO ID: [id number] Author: JOCELYNE STILL MA Service: ? Author Type: [place] Brushing Machine Operator Type: Procedures Filed: 12/19/2024 15:53 Note Text:[facility]06-[facility] Procedure note* Jocelyne Still MA - 12/19/2024 1:26 PM EDTProcedure(s): EXTERNAL FOOTWEAR MACHINERY INSTRUCTOR, CGM SYS Images from the original note were not included. [facility]06-11-2025 Procedure note* Jocelyne Still MA - 12/19/2024 1:26 PM EDTProcedure(s): EXTERNAL FOOTWEAR MACHINERY INSTRUCTOR, CGM SYS Images from the original note were not included. documented in this encounterCleveland Clinic [facility]06-11-2025 [facility] History of Present illness Narrative* Crow Joseph MD - 12/19/2024 1:14 PM EDT Images from the original note were not included. [facility] CONSULT/NEW PATIENT SERVICE DATE: 12/19/24 My final recommendation will be communicated back to the requesting physician by way of shared medical record (or letter via US mail when appropriate) REFERRING PROVIDER Roscoe Arias [id number] [id number] Patient Info Patient Name Sex Luisito Zhong ([id number]) Male 1980 Weight Most recent update: 12/19/2024 12:49 PM Wt 111.8 kg (246 lb 7.6 oz) Vitals History Order Information Date and Time Department Released By Authorizing 12/19/2024 12:36 PM Shreya Ross [facility] Order Info Action Responsible Provider Signed By Signed On Ordering Roscoe Arias MD Order Providers Authorizing Provider Encounter Provider Roscoe Arias MD Valencia Rodrigo, Willy M, MD Future Order Information Expires 11/27/25 Original Order Ordered On Ordered By 11/27/2024 2:16 PM Josselyn Rausch RN Associated Diagnoses Type 1 diabetes mellitus without complication (HCC) [E10.9] Acquired hypothyroidism [E03.9] Pre-operative cardiovascular examination [Z01.810] Aortic valve disorder [I35.9] Comments Pre-op [facility] evaluation for patient with insulin pump. Reason for Exam Priority: Routine Dx: Type 1 diabetes mellitus without complication (HCC) [E10.9 (ICD-10-CM)]; Acquired hypothyroidism [E03.9 (ICD-10-CM)]; Pre-operative cardiovascular examination [Z01.810 (ICD-10-CM)]; Aortic valve disorder [I35.9 (ICD-10-CM)] Comments: Pre-op [facility] evaluation for patient with insulin pump. EXTRACTED FROM REFERRING NOTE / PERTINENT NOTE CHIEF COMPLAINT: HISTORY OF PRESENT ILLNESS Unless stated otherwise Recording using ambient [employer] software for draft documentation of the visit was discussed with the patient/authorized contact representative; all questions welcomed and answered. Patient/authorized contact representative agreed to proceed Luisito Zhong is a 44 year old male who comes to the clinic for evaluation Please report to prior notes sections/extracted above for details on HPI Today the patient reports: `Luisito Zhong is a 44-year-old male with a 41-year history of type 1 DM, presenting for preoperative endocrinology consultation prior to upcoming open heart surgery for mechanical valve placement. Luisito has not seen an portfolio manager for 4-5 months and is awaiting A1c results. He reports fluctuating glucose levels, with readings occasionally exceeding 300 mg/dL and episodes of hypoglycemia below 70 mg/dL. He attributes these fluctuations to recent weight gain of approximately 15 lbs over the past 1-2 months and challenges in managing his diet while residing in a sober living house. He notes that the food provided is often high in starch and carbohydrates, contributing to his glucose variability. He also mentions that his Medtronic insulin pump, which he has been using for a few months, administers automatic adjustment boluses that he feels are too strong, leading to hypoglycemia when his glucose levels are around 130-140 mg/dL. Luisito is currently in a sober living house as part of his recovery from a cocaine addiction, which he has been addressing for the past 4-5 months. He reports that his focus on recovery and preparing for his upcoming surgery has made it challenging to maintain consistent diabetes management practices. He is concerned about how his current glucose control and A1c levels might impact his upcoming surgery and inquires about the potential effects of Coumadin on his diabetes management. REVIEW OF SYSTEMS: Negative unless symptoms described in HPI IMMUNIZATIONS PAST MEDICAL HISTORY PAST SURGICAL HISTORY SOCIAL HISTORY reviewed PHYSICAL EXAM: Vital signs reviewed synopsis as appropriate Gen/Constitutional: comfortable, not in distress, body habitus (see BMI) Psych: normal affect, behavior normal, thought content normal, judgement observed during conversation and plan discussion. Skin: no observable rash Labs: Reviewed available data Latest Ref Rng 12/19/2024 WBC 3.70 - 11.00 k/uL 6.43 RBC 4.20 - 6.00 m/uL 4.88 Hemoglobin 13.0 - 17.0 g/dL 14.7 Hematocrit 39.0 - 51.0 % 43.3 MCV 80.0 - 100.0 fL 88.7 MCH 26.0 - 34.0 pg 30.1 MCHC 30.5 - 36.0 g/dL 33.9 RDW-CV 11.5 - 15.0 % 12.2 Platelet Count 150 - 400 k/uL 209 MPV 9.0 - 12.7 fL 9.7 Neut% % 49.8 Abs Neut (ANC) 1.45 - 7.50 k/uL 3.21 Lymph% % 33.4 Abs Lymph 1.00 - 4.00 k/uL 2.15 Kerr% % 10.0 Abs Kerr <0.87 k/uL 0.64 Eosin% % 4.7 Abs Eosin <0.46 k/uL 0.30 Baso% % 1.9 Abs Baso <0.11 k/uL 0.12 (H) Immature Gran % % 0.2 IMMATURE GRANS (ABS) <0.10 k/uL <0.03 NRBC /100 WBC 0.0 Absolute nRBC <0.01 k/uL <0.01 DTYPE Auto Protein, Total 6.3 - 8.0 g/dL 6.5 Albumin 3.9 - 4.9 g/dL 4.3 Calcium 8.5 - 10.2 mg/dL 9.8 Bilirubin, Total 0.2 - 1.3 mg/dL 0.7 Alkaline Phosphatase 38 - 113 U/L 69 AST 14 - 40 U/L 30 ALT 10 - 54 U/L 24 Glucose 74 - 99 mg/dL 100 (H) BUN 9 - 24 mg/dL 16 Creatinine 0.73 - 1.22 mg/dL 0.85 Sodium 136 - 144 mmol/L 143 Potassium 3.7 - 5.1 mmol/L 4.6 Chloride 98 - 107 mmol/L 105 CO2 22 - 30 mmol/L 28 Anion Gap 8 - 15 mmol/L 10 eGFR >=60 mL/min/1.73m 109 TSH 0.270 - 4.200 mIU/L 0.915 Legend: (H) High CGM reviewed + interpretation The length of time the data was > 72 hours Analysis Time in range 60% Fluctuation yes Hypoglycemia events yes Hyperglycemia events yes Interpretation Likely a result from eating different meals on different days Discussed plan below ASSESSMENT AND PLAN Type 1 diabetes mellitus without complication (hcc) (primary encounter diagnosis) Acquired hypothyroidism Aortic valve disorder Class 1 obesity due to excess calories with serious comorbidity and body mass index (bmi) of 31.0 to 31.9 in adult 1. Type 1 diabetes mellitus without complication (HCC) Patient has had Type 1 diabetes for 41 years and is currently using a Medtronic insulin pump with [employer] technology. Recent glucose sensor reports show a timing range of 60% with 2% low glucose and 10% high glucose. Average glucose is 155 mg/dL with a variability of 106 mg/dL. Concerns about hypoglycemic episodes due to aggressive bolus adjustments by the pump. - Adjusted glucose target on the insulin pump from 100-120 mg/dL to 110-130 mg/dL to reduce hypoglycemic episodes. - AVOID carbohydrate excess - Educated patient on the importance of carbohydrate counting and meal selection to prevent hyperglycemic spikes. - Discussed perioperative management for upcoming aortic valve replacement surgery, including the use of an insulin drip during and post-surgery. - Coordinated with the hospital endocrinology team to ensure seamless transition from insulin drip to pump post-surgery. - Advised patient to maintain glucose levels between 100-200 mg/dL in the days leading up to surgery. - Recommended consultation with a jackspooler to optimize diet, especially considering upcoming Coumadin therapy. 2. Acquired hypothyroidism Much better now 3. Aortic valve disorder Scheduled for aortic valve replacement surgery next week. Concerns about glucose management during the perioperative period. - Coordinated with surgical and endocrinology teams to ensure appropriate insulin management duringand after surgery. - Discussed the impact of surgical stress on glucose levels and the necessity of maintaining insulin therapy. 4. Class 1 obesity due to excess calories with serious comorbidity and body mass index (BMI) of 31.0 to 31.9 in adult Recent weight gain of approximately 15 pounds over the last couple of months, potentially affectingglucose control. - Advised on dietary modifications to manage weight and improve glycemic control. - Recommended regular follow-up with a jackspooler to develop a sustainable weight management plan. comprehensive approach to the management Nutritional evaluation and recommendations Proper caloric intake per weight / BMI and activity levels Prevention of muscle loss in the setting of therapeutic interventions We must address protein intake Recommended 1 to 1.2 grams of protein per kilo per day Exercise Should include resistance exercise as well Slowly and progressively increase Identify complacency - adapt strategies to continue obtaining results Pharmacologic interventions reviewed and discussed Discussed time and monitoring are required to ensure long-term success Regarding vitamin D When applicable, check levels - deficiency is prevalent in the setting obesity PATIENT EDUCATION AND PLAN DETAILS I provided consideration for the suspected diagnostic approach and differential Plan of care explained and discussed in detail with the patient Documented in Wrap Up plan Patient instructions for questions Should you have any questions, please send a message through infibond or call our clinic at [phone] Thank you for the opportunity to participate in the care of this patient FOR INPATIENT PLAN REFERRAL TO INPATIENT ENDOCRINOLOGY AND NUTRITION ESTABLISH CARE OUTPATIENT - PT REPORTED WILL SEE ENDO Dr. Kristal Desai BUT IS NOT LISTED IN FUTURE ENCOUNTERS YET I spent a total of 55 minutes on the date of the service which included preparing to see the patient, [id number]-tofy patient care, completing clinical documentation, obtaining and/or reviewing separately obtained history, performing a medically appropriate examination, counseling and educating the pat ient/family/caregiver, ordering medications, tests, or procedures, and care coordination (not separately reported). documented in this encounterC[facility]06-11-2025 Instructions* Patient Instructions* Crow Joseph MD - 12/19/2024 12:47 PM EDT Thank you for choosing the [facility] Department of Endocrinology, Diabetes and Metabolism. Did you know that you need to call 48 hours in advance of your scheduled visit, if you are unable to make your appointment? The [facility] thanks you for your commitment, because patients not showing to their appointment results in a lost opportunity for patients to receive the [facility] care at the [facility]. To Cancel an appointment, please choose one of the following: - Call the Appointment Call Center at [phone] - From Medium, Go to Appointments - Cancel Appts If cancelling, consider your need to reschedule to prevent further delays in your care. To Schedule an appointment, please choose one of the following: - Call the Appointment Call Center at [phone] - From Medium, Go to Appointments - Request an Appt We discussed your diabetes management and preparation for your upcoming heart surgery: - Your glucose targets have been adjusted on your Medtronic pump to improve safety and reduce the risk of low blood sugar. The new glucose target range is 110 to 130 (previously 100 to 120). This change has been saved in your pump settings. - Continue monitoring your blood sugar levels closely. Aim for fasting glucose levels between 90 and 120, and glucose levels before lunch, dinner, and bedtime between 90 and 160. Avoid glucose levelsbelow 70. - During your hospital stay for surgery: - You may remain on your pump initially, but on the day of surgery, your pump will be disconnected,and you will be placed on an insulin drip. The insulin drip will continue post-surgery until you are stable and ready to transition back to your pump. - It is critical that there is an overlap between the insulin drip and the pump to ensure continuous insulin delivery. Bring all necessary pump supplies with you to the hospital. - Your glucose targets in the hospital will be slightly higher for safety: 100 to 140 for breakfastand 100 to 180 for the rest of the day. - After surgery, the hospital team will consult endocrinology and nutrition services to assist withyour diabetes management and dietary needs during recovery. - To prepare for surgery, focus on maintaining blood sugar levels below 200 this week. Avoid foods high in starch, sugar, and carbohydrates, such as cakes, cookies, and other desserts. Choose healthier meal options whenever possible. - If you experience any issues with your pump or glucose levels, please contact your endocrinology team immediately. We discussed your diet and lifestyle: - You are staying in a sober living house, and while you may not always control the groceries purchased by others, try to maintain a stash of healthier food options for yourself. This week, prioritize foods that help stabilize your blood sugar. - Work with the hospital s jackspooler post-surgery to develop a diet plan that balances your diabetes management with any dietary restrictions related to Coumadin, which you will be starting after surgery. We discussed your upcoming heart surgery: - Your A1c level will not impact the decision to proceed with surgery. The focus is on your currentglucose control leading up to and during the procedure. - On the day of surgery, your blood sugar should be between 100 and 200. Avoid extreme highs or lows, as these could delay the procedure. - Post-surgery, you will work with the hospital team to transition back to your pump and resume your usual diabetes management routine. Follow-up: - Ensure you have all necessary pump supplies ready for your hospital stay. - Continue working with your portfolio manager, Dr. Kristal Mcarthur, for ongoing diabetes management after surgery. - If you have any questions or concerns about your diabetes management or surgery preparation, please contact our office. documented in this encounterCleveland Clinic [facility]06-11-2025 History of Present illness Narrative* Prieto Caro RT(R) - 12/19/2024 11:45 AM EDT Radiology Service Progress Note PATIENT NAME: Luisito Zhong DATE OF SERVICE: December 19, 2024 TIME: 11:57 AM PATIENT IDENTITY VERIFICATION COMPLETED USING TWO (2) IDENTIFIERS: Name and Date of confirmedby patient verbally. FALL SCREENING: Has the patient had 2 falls in the last year or 1 fall with injury or currently using an Ambulatory Assistive Device (Walker, Cane, Wheelchair, Crutches, etc.)? No PATIENT GENDER DATA: Assigned male at PATIENT RELEVANT IMPLANT DATA REVIEWED: Not Applicable PATIENT PRESENTS WITH AN IMPLANTABLE OR ATTACHED TIME ANALYSIS CLERK: No RADIOLOGY DEPARTMENT: General X-ray: Exam(s) Completed: Chest X-Ray PERIPHERAL IV DATA: Not applicable SIGNED BY: RT Hellen(Forest) December 19, 2024 11:57 AM documented in this encounterCleveland Clinic [facility]06-11-2025 [facility]Way[facility] Radiology Diagnostic study note [facility] Imaging Services [address] [place] [address] Cerv Spine 4 or 5 Views MR#: [id number] Acct: [id number] Name: LUISITO ZHONG Rep #: [id number] : 1980 M 44 From: Mary Angel MD PCP: ROSCOE UMANZOR Status: REG CLI Study:Cerv Spine 4 or 5 Views Date of Exam: 12/12/24 Exam# [id number] Ordering Dr: Olga Mujica MD PROCEDURE: CERV SPINE 4 OR 5 VIEWS 12/12/2024 REASON FOR EXAM: NECK AND R ARM PAIN TECHNIQUE: 6 views of the cervical spine. COMPARISON: None FINDINGS: Vertebral body heights are maintained. There is straightening of the normal cervical lordosis. Qnyf-nd-ljwilxnz multilevel disc height loss, endplate osteophyte formation, with uncovertebral and facet arthropathy. These changesare worst at C6-7 where there is at least mild osseous neural foraminal narrowing bilaterally. The odontoid view is unremarkable. Median sternotomy wires are partially imaged. RAD/Cerv Spine 4 or 5 Views IMPRESSION: 1. Wglr-gp-cbbjhphn degenerative changes of the cervical spine, worst at C6-7. 2. Straightening of the normal cervical lordosis may be related to pain, positioning, or spasm Reading Location: [id number] CC: Dr. Freddy Mujica MD; ROSCOE UMANZOR ~ Journeyman Pipefitter: Signed [facility]05-30-2025 Telephone encounter Note* Telephone Encounter - Schuyler Louis - 12/07/2024 9:54 AM EDT Patient called stating that he had CHANDA ext done by another provider. Ext appointment has been canceled. [facility]05-30-2025 Miscellaneous Notes* Telephone Encounter - Schuyler Louis - 12/07/2024 9:54 AM EDT Patient called stating that he had CHANDA ext done by another provider. Ext appointment has been canceled. documented in this encounterCleveland Clinic [facility]05-27-2025 Telephone encounter Note * Telephone Encounter - Schuyler Louis - 12/04/2024 9:13 AM EDT Patient called to see if there was a sooner appointment available for his extractions, no sooner appointment was available. [facility]05-27-2025 Miscellaneous Notes* Telephone Encounter - Schuyler Louis - 12/04/2024 9:13 AM EDT Patient called to see if there was a sooner appointment available for his extractions, no sooner appointment was available. documented in this encounterCleveland Clinic [facility]05-23-2025 History of Present illness Narrative* Rehana Aviles DMD - 11/30/2024 10:29 AM EDT Images from the original note were not included. [facility]st[facility] CHIEF COMPLAINT: I went to the dentist and was supposed to have some work done. HISTORY OF PRESENT ILLNESS: Luisito Zhong is a 44 year old male being seen for dental consultation at the request of Dr. Roscoe Arias prior to open-heart surgery. The patient's last dental visit was last couple of months. Pain:He denies odontalgia today. PROBLEM LIST: ACTIVE PROBLEM LIST Impingement Syndrome of Right Shoulder Type 1 Diabetes Mellitus With Diabetic Polyneuropathy (Hcc) Acquired Hypothyroidism Former Smoker Subaortic Membrane (Hcc) Mitral Regurgitation Alcohol Abuse History of Drug Abuse (Hcc) Anxiety and Depression Dyspnea Dyslipidemia Obesity (Bmi 30-39.9) Discharge Planning Issues Pre-Op Testing Atelectasis Post-Op Pain Sob (Shortness of Breath) Tricuspid Regurgitation Aortic Regurgitation Obesity, Class II, Bmi 35-39.9 Hypervolemia Encounter for Support and Coordination of Transition of Care Nicotine use disorder, F17.2 History of Asthma History of Cocaine Use Hld (Hyperlipidemia) Hypoglycemia Chronic Right Shoulder Pain Pain in Joint, Shoulder Region Substance Abuse (Hcc) Vitamin D Deficiency Type 1 Diabetes Mellitus Without Complication (Hcc) Homeless Cocaine Abuse (Hcc) CURRENT MEDICATIONS: Current Outpatient Medications on File Prior to Visit Medication Sig levothyroxine (SYNTHROID) 175 mcg tablet Take 1 tablet by mouth daily at 6 am. Blood-Glucose Sensor (DEXCOM G6 SENSOR) xenia APPLY AND REPLACE SENSOR TOPICALLY EVERY 10 DAYS Blood-Glucose Transmitter (DEXCOM G6 TRANSMITTER) xenia Apply new transmitter every 90 days. Clean transmitter with an alcohol swab with each sensor change. levothyroxine (SYNTHROID) 175 mcg tablet Take 1 tablet by mouth daily before breakfast. TRESIBA FLEXTOUCH U-100 100 unit/mL (3 mL) injection pen INJECT 40 UNITS SUBCUTANEOUSLY ONCE DAILY blood sugar diagnostic ([employer] MedicalTOUCH ULTRA TEST) test strip TEST UP TO 7 TIMES DAILY BEFORE MEALS AND AT BEDTIME PLUS NEEDED FOR SYMPTOMS (Patient not taking: Reported on 02/03/2024) Blood-Glucose Transmitter (DEXCOM G6 TRANSMITTER) xenia 1 Each once daily. (Patient not taking: Reported on 02/03/2024) rosuvastatin (CRESTOR) 10 mg tablet Take 1 tablet by mouth daily at bedtime. cholecalciferol (VITAMIN D-3) 50 mcg (2,000 unit) tablet Take 1 tablet by mouth once daily. umeclidinium-vilanterol (ANORO ELLIPTA) 62.5-25 mcg/actuation inhaler Inhale 1 Inhalation as instructed once daily. DULoxetine (CYMBALTA) 30 mg capsule Take 1 capsule by mouth once daily. escitalopram oxalate (LEXAPRO) 20 mg tablet Take 1 tablet by mouth once daily. Blood-Glucose Meter,Continuous (DEXCOM G7 FOOTWEAR MACHINERY INSTRUCTOR) misc 1 Each five times a day. (Patient not taking: Reported on 02/03/2024) insulin lispro (HUMALOG U-100 INSULIN) 100 unit/mL injection Inject up to 90 units per day via insulin pump. Blood-Glucose Sensor (DEXCOM G6 SENSOR) xenia Apply new sensor every ten (10) days to abdomen. Blood-Glucose Meter,Continuous (DEXCOM G6 FOOTWEAR MACHINERY INSTRUCTOR) misc Use to check blood sugar at least four (4)times daily. OMNIPOD 5 G6 PODS, GEN 5, crtg Change pod every 48 hours. (Patient not taking: Reported on 02/03/2024) Insulin Syringe-Needle U-100 (BD INSULIN SYRINGE ULTRA-FINE) 0.5 mL 31 gauge x 5/16 Inject 1 Each subcutaneously three times daily. Use 3 times daily with Humalog injections. Diagnosis E10.65 PATIENT IS OFF OF INSULIN PUMP AND NOW USING BASAL/BOLUS INSULIN AGAIN (Patient not taking: Reported on 02/03/2024) acetaminophen (TYLENOL) 500 mg tablet 1,000 mg. (Patient not taking: Reported on 02/03/2024) aspirin, enteric coated (ASPIRIN, ENTERIC COATED) 81 mg EC tablet Take 81 mg by mouth q 24 HR. (Patient not taking: Reported on 02/03/2024) Insulin [place], Disposable, (BD ULTRAFINE III MINI PEN) 31 gauge x 3/16 USE WITH INSULIN PENS ONCE DAILY diagnosis E10.65 PATIENT IS OFF OF INSULIN PUMP AND NOW USING BASAL/BOLUS INSULIN AGAIN (Patient not taking: Reported on 02/03/2024) ibuprofen (MOTRIN) 800 mg tablet Take 1 tablet by mouth every 8 hours as needed for pain or fever (specify). (Patient not taking: Reported on 02/03/2024) fluticasone (FLONASE) 50 mcg/actuation nasal spray Use 1 [place] in the nose once daily as needed. (Patient not taking: Reported on 02/03/2024) ALLERGY RELIEF, LORATADINE, 10 mg tablet Take 10 mg by mouth once daily. (Patient not taking: Reported on 02/03/2024) No current facility-administered medications on file prior to visit. ALLERGIES: ALLERGIES Allergen Reactions Hydromorphone Itching Tramadol Other: See Comments Burning skin CLINICAL EXAMINATION: General appearance: alert, no distress, cooperative. Extraoral, Head and Neck exam: No extraoral swelling or erythema Parotid and submandibular glands soft, nonpainful to palpation bilaterally No lymphadenopathy V1, V2, V3, CN VII intact bilaterally Intraoral Soft Tissues: Clear saliva extruded from bilateral Nye's and Ronna's ducts. Tongue soft and non-tender with no apparent lesions. Buccal mucosa without lesions bilaterally. Hard palate is WNL. Soft palate is WNL. Pharynx is WNL. Floor of mouth is WNL. Dentition: Caries:Tooth # 11 and 20 Retained root tips: Tooth # 3, 12, 19, 29, and 30 Pain to percussion: None Mobility: None Oral hygiene: poor. Radiographic examination: Normal trabecular and cortical bone pattern. Periapical radiolucency(s): 23 ASSESSMENT: Examination of the oral cavity and dentition reveals Retained roots: #3, 12, 19, 20, 30. Caries #6,20. 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 RECOMMENDATIONS: The patient is at moderate risk of perioperative complication from an oral health standpoint. Recommended extractions: Teeth #3, 12, 19, 29, 30 Recommended restorations: #6, 20 -- explained to pt that these teeth have large caries but is likely restorable. Discussed plan for pt to seek outside dental care for #6, 20 prior to extraction appointment. If not restored prior to cardiac surgery, may consider extracting #6, 20 as well. Recommended watch: #23, assessment inconclusive without periapical radiograph and vitality testing.Pt is asymptomatic and is without overt infection. Recommended debridement prior to surgery/transplant/head & neck radiation: NO Labs needed within 24 hours of dental procedure: None Antibiotic pre-medication required: YES Suggested antibiotic regimen: 2g Amoxicillin 1 hour prior to dental procedure To be ordered by in-patient team: NO Reason for pre-medication: h/o AVR The procedure including risks, benefits, options and personnel performing the procedure was discussed with the patient. Luisito Zhong expressed understanding and agreed to proceed. The opinions rendered will be communicated back to the referring provider via shared electronic medical record. Rehana Aviles DMD documented in this encounterC[facility]25 NoteWay[facility]-15-2025 Telephone encounter Note* Telephone Encounter - Kingstno Fraire - 11/22/2024 12:36 PM EDT IN [facility] Work Phone: [phone] 436-716805-15-2025 Miscellaneous Notes* Telephone Encounter - Kingston Fraire - 11/22/2024 12:36 PM EDT [place] * Telephone Encounter - Betty Ovalles - 11/22/2024 11:09 AM EDT Insurance Card(s) scanned into [employer] Please register/advise Thank You! documented in this encounterCleveland [facility]05-15-2025 Telephone encounter Note * Telephone Encounter - Betty Ovalles - 11/22/2024 11:09 AM EDT Insurance Card(s) scanned into [employer] Please register/advise Thank You! [facility]05-13-2025 [facility]05-13-2025 History of Present illness Narrative* Roscoe Arias MD - 11/20/2024 4:57 PM EDT Thoracic and Cardiovascular Surgery [facility] CARDIOTHORACIC CLINIC NOTE CHART COPY DO NOT DISCARD Patient Type: Established Visit to determine Surgery: No PCP: Sruthi Ambrosio [facility] [place] [address] Referring Physician:: Roscoe Arias [id number] [id number] Mr. Luisito Zhong returns to clinic today for follow-up after heart surgery. He is a 44 year old male who is s/p redo subaortic membrane resection, Aortic Valve Replacement with root enlargement 25 inspiris and Tricuspid Valve Repair . LAWSON today shows normal EF with degeneration of Aortic Valve Replacement (2+ intravalvular AI) and moderate ; trace TR. Impression: Prosthetic valve degeneration Plan: I would recommend 6 month follow-up of valve and consideration of 3x redo Aortic Valve Replacement when needed (likely with mechanical valve) I spent more than 50% of the visit face to face counseling the patient on the plan and treatment options. The time spent counseling was 20 minutes. The total time of the face to face visit was 20 minutes. These findings will be communicated back to the requesting physician via mail. Roscoe Arias MD documented in this encounterCleveland Clinic [facility]05-13-2025 Nurse Note* Karen Robin RN - 11/20/2024 2:13 PM EDT AMBULATORY PATIENT EDUCATION TOPIC: LAWSON READINESS TO LEARN COGNITIVE ABILITY: Alert and oriented MOTIVATION TO LEARN: Eager FAMILY SUPPORT: Unable to assess - Family not present INSTRUCTION PROVIDED TO: Patient PATIENT LEARNS BEST BY: Individual Instruction Verbal Instruction FACTORS AFFECTING LEARNING: None PHYSICAL LIMITATIONS AFFECTING LEARNING: None LEARNING RESPONSE DIAGNOSIS: VALVE EVAL METHOD OF INSTRUCTION: Individual instruction Verbal instruction PATIENT / FAMILY RESPONSE: Verbalizes understanding of: POST-PROCEDURE INSTRUCTIONS-Correct actionsto take to reduce post procedure complications PRE-PROCEDURE INSTRUCTIONS-Correct action to take to follow pre-procedure instructions FOLLOW-UP PLAN: Complete - No need for follow-up SUPPLEMENTAL MATERIAL: Post LAWSON instructions given Post sedation instructions given REFERRAL (RECOMMENDATION): None Electronically Signed By Karen Robin RN In Department: CARDIOLOGY [facility]05-13-2025 Nurse Note* Karen Robin RN - 11/20/2024 2:13 PM EDT AMBULATORY PATIENT EDUCATION TOPIC: LAWSON READINESS TO LEARN COGNITIVE ABILITY: Alert and oriented MOTIVATION TO LEARN: Eager FAMILY SUPPORT: Unable to assess - Family not present INSTRUCTION PROVIDED TO: Patient PATIENT LEARNS BEST BY: Individual Instruction Verbal Instruction FACTORS AFFECTING LEARNING: None PHYSICAL LIMITATIONS AFFECTING LEARNING: None LEARNING RESPONSE DIAGNOSIS: VALVE EVAL METHOD OF INSTRUCTION: Individual instruction Verbal instruction PATIENT / FAMILY RESPONSE: Verbalizes understanding of: POST-PROCEDURE INSTRUCTIONS-Correct actionsto take to reduce post procedure complications PRE-PROCEDURE INSTRUCTIONS-Correct action to take to follow pre-procedure instructions FOLLOW-UP PLAN: Complete - No need for follow-up SUPPLEMENTAL MATERIAL: Post LAWSON instructions given Post sedation instructions given REFERRAL (RECOMMENDATION): None Electronically Signed By Karen Robin RN In Department: CARDIOLOGY documented in this encounterCleveland [facility]05-13-2025 History of Present illness Narrative* Haylee Lee RN - 11/20/2024 12:30 PM EDT Radiology Service Progress Note DATE OF SERVICE: November 20, 2024 TIME: 12:25 PM PATIENT WEIGHT: 235LBS PATIENT IDENTITY VERIFICATION COMPLETED USING TWO (2) STANDARD IDENTIFIERS: Name and Date of confirmed by patient verbally and Name and Date of confirmed by identification band. FALL SCREENING: Has the patient had 2 falls in the last year or 1 fall with injury or currently using an Ambulatory Assistive Device (Walker, Cane, Wheelchair, Crutches, etc.)? No PATIENT GENDER DATA: Assigned male at ALLERGIES: Reviewed and unchanged CONTRAST ALLERGY: No EXAM: CT -CONTRAST INDUCED NEPHROPATHY RISK FACTORS: Diabetic: Yes. Current medication(s): Insulin Insulin Pump: YES Insulin Pump Removed: YES. Patient currently has insulin pump?: Yes. and Insulin pump removed prior to Radiology procedure/exam. and Diabetic homegoing recommendations given: Yes CREATININE: Creatinine Date Value Ref Range Status 03/27/2024 0.88 0.50 - 1.40 mg/dL Final Comment: Patients receiving either N-Acetylcysteine (NAC) or Metamizole prior to venipuncture, may have falsely depressed results. 02/10/2024 0.56 0.50 - 1.40 mg/dL Final Comment: Patients receiving either N-Acetylcysteine (NAC) or Metamizole prior to venipuncture, may have falsely depressed results. Creatinine (POCT) Date Value Ref Range Status 11/20/2024 1.00 0.7 - 1.4 mg/dL Final eGFR (POCT) Date Value Ref Range Status 11/20/2024 >60 mL/min/1.73 m2 Final eGFR- Date Value Ref Range Status 04/07/2020 Greater than 60 Final P.O.C.T. RESULTS: POC done: Yes, See Lab Tab November 20, 2024 TREATMENT: No Hydration needed. IV SITE: Ambulatory: A peripheral IV was started in the Right antecubital site with a Angio cath: 20 gauge. and A Saline lock was inserted per protocol IV left in for LAWSON IV SITE APPEARANCE: Clean,Dry and Intact SIGNATURE: Haylee Lee RN PATIENT NAME: Luisito Zhong DATE: November 20, 2024 TIME: 12:25 PM * Eris Ortiz RT(R) - 11/20/2024 12:30 PM EDT Radiology Service Progress Note PATIENT NAME: Luisito Zhong DATE OF SERVICE: November 20, 2024 TIME: 12:46 PM PATIENT IDENTITY VERIFICATION COMPLETED USING TWO (2) IDENTIFIERS: Name and Date of confirmedby patient verbally and Name and Date of confirmed by identification band. FALL SCREENING: Has the patient had 2 falls in the last year or 1 fall with injury or currently using an Ambulatory Assistive Device (Walker, Cane, Wheelchair, Crutches, etc.)? No PATIENT GENDER DATA: Assigned male at PATIENT RELEVANT IMPLANT DATA REVIEWED: Yes PATIENT PRESENTS WITH AN IMPLANTABLE OR ATTACHED TIME ANALYSIS CLERK: No RADIOLOGY DEPARTMENT: CT; Exam(s) Completed: Cardiac PERIPHERAL IV DATA: Site assessment: Clean,Dry and Intact, Site disposition Left in for next appointment SIGNED BY: RT Kymberly(R) November 20, 2024 12:46 PM * Eris Ortiz RT(R) - 11/20/2024 12:30 PM EDT Radiology Service Progress Note PATIENT NAME: Luisito Zhong DATE OF SERVICE: November 20, 2024 TIME: 1:03 PM PATIENT IDENTITY VERIFICATION COMPLETED USING TWO (2) IDENTIFIERS: Name and Date of confirmedby patient verbally and Name and Date of confirmed by identification band. FALL SCREENING: Has the patient had 2 falls in the last year or 1 fall with injury or currently using an Ambulatory Assistive Device (Walker, Cane, Wheelchair, Crutches, etc.)? No PATIENT GENDER DATA: Assigned male at PATIENT RELEVANT IMPLANT DATA REVIEWED: Not Applicable PATIENT PRESENTS WITH AN IMPLANTABLE OR ATTACHED TIME ANALYSIS CLERK: No RADIOLOGY DEPARTMENT: CT; Exam(s) Completed: Cardiac PERIPHERAL IV DATA: Site assessment: Clean,Dry and Intact, Site disposition Discontinued SIGNED BY: RT Kymberly(R) November 20, 2024 1:03 PM documented in this encounterCleveland Clinic [facility]05-13-2025 NoteWay[facility]05-13-2025 NoteWay[facility]05-13-2025 NoteWay[facility]05-06-2025 Telephone encounter Note* Telephone Encounter - Marina Barrientos RN - 11/13/2024 8:48 AM EDT Patient called me from his facility - I left a message with his mom with our contact information. The facility does not answer the phone but they are able to call out. The patient is agreeable to comat 1430 for the LAWSON and the appt was moved per OK from patient. Instructions given to contact his endocrine physician to advise on the insulin if NPO ECHO LAB TELEPHONE INSTRUCTIONS: Learning Response: Instructions provided to: Patient Procedure: LAWSON Pre procedure education topics: Arrival time, NPO status, Medications, Travel, and Accompanied by aresponsible adult Instructions/Restrictions Patient/Family Response Evaluation: Verbalizes understanding Follow Up Plan and Medication: As directed by physician Instruction/Supplemental Material Given: Appointment Information and Procedure/Test Specific Information: Transesphageal Echocardiogram-LAWSON Instructed By aMrina Barrientos RN. In Department of CARDIOLOGY. [facility]05-06-2025 Miscellaneous Notes* Telephone Encounter - Marina Barrientos RN - 11/13/2024 8:48 AM EDT Patient called me from his facility - I left a message with his mom with our contact information. The facility does not answer the phone but they are able to call out. The patient is agreeable to comat 1430 for the LAWSON and the appt was moved per OK from patient. Instructions given to contact his endocrine physician to advise on the insulin if NPO ECHO LAB TELEPHONE INSTRUCTIONS: Learning Response: Instructions provided to: Patient Procedure: LAWSON Pre procedure education topics: Arrival time, NPO status, Medications, Travel, and Accompanied by aresponsible adult Instructions/Restrictions Patient/Family Response Evaluation: Verbalizes understanding Follow Up Plan and Medication: As directed by physician Instruction/Supplemental Material Given: Appointment Information and Procedure/Test Specific Information: Transesphageal Echocardiogram-LAWSON Instructed By Marina Barrientos RN. In Department of CARDIOLOGY. documented in this encounterCleveland Clinic [facility]02-14-2025 History of Present illness Narrative* rEin Morris MD - 08/24/2024 9:30 AM EST [facility] Cardiology Note Assessment and Plan: # 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 He is re-presenting with dyspnea and an echo done at [place] that reports elevated gradients (30 mmHg) across the LVOT. Unfortunately we have had significantchallenges getting the images and have not had an opportunity for personal review. On examination there is a crescendo murmur across the aortic area, this did not change with the valsalva maneuver. Mic suspicious that the primary issue would be recurrent membrane, with his prior anatomy it seems unlikely that this is CARLOS or muscular hypertrophy resulting in elevated LVOT gradient, and PrAV degeneration seems significantly less likely at this time point. I agree that the next step in managementis LAWSON (and probable multimodal approach with CMR). He has consulted with Dr. Arias, his cardiac surgeon at [facility] and I think what makes sense at this time is for him to have the imaging done at [facility] as they have planned; if he were to have repeat surgery, he would opt to have it done there. We willrequest the images when done. # Aortic valve replacement: #25 inspiris prosthetic aortic valve # Tricuspid valve repair: Hernandez MC3 tricuspid ring at the time of his second cardiac surgery in 2021. History of Present Illness: Luisito Zhong is a 44 y.o. male presenting for evaluation in the cardiology clinic. Luisito Zhong is a former patient of Dr. Perez who is presenting to [facility]. He has a complexhistory of subaortic membrane. Underwent first surgery for resection of LVOT obstructive subaortic membrane 12/20/2018, the procedure was performed by Dr. Cabrera and Dr. Estevez. Unfortunately, not long after this surgical intervention, he had recurring symptoms. Repeat workup, including TTE, LAWSON andCMR demonstrated recurrent subaortic membrane. [facility], and ultimately underwent repeat surgical intervention on 01/26/[address] Roscoe Arias. That procedure included membrane removal and aortic valve replacement with #25 Inspiris prosthetic aortic valve,as well as tricuspid repair with Hernandez MC3 tricuspid ring. Most recently, he re-presented to Dr. Perez for follow-up, in 05/2024. At that visit, he reported increasing shortness of breath, his primary symptom with the obstructive LVOT. This is our first meeting. He describes some progressive dyspnea over the past few months. This is noticeable for him on a day-to-day basis but does not seem to be limiting him from doing the majority of his activities. He estimates that walking at a normal pace, he wouldn't be limited by dyspnea at effectively any distance. He is not having chest pain, no syncopal episodes. No orthopnea/PND symptoms. He does notice the dyspnea when vaping. We discussed today the critical importance of cessation particularly if he were to require further surgery. He has communicated with Dr. Arias about the symptoms that are occurring and there are plans for a LAWSON, probably will be done in November, and an office visit after that time. Cardiovascular History: EKG: Personal interpretation of the EKG shows a sinus rhythm Personally reviewed the LAWSON from 2021 which demonstrates an anterior ridge/membrane in the LVOT with associated flow acceleration, probably just inferior to the RCC. Still have not received echo images from [place] from last month, but did review the report which documents a 30mmHg gradient across the LVOT Past Medical History: Outlined above Physical Examination: Vitals:There were no vitals filed for this visit. There is no height or weight on file to calculate BMI. Physical Exam: GEN: Comfortable, conversant, on room air Neck: JVD not elevated Heart: Regular rate, rhythm, systolic murmur at the aortic position without variation with valsalva Lungs: Clear to auscultation throughout Abd: Soft/nontender Ext: Warm, well-perfused, no edema Neuro: No apparent focal neuro deficit, formal examination deferred Medications: Current Outpatient Medications: Acetaminophen Extra Strength 500 MG tablet, , Disp: , Rfl: albuterol 108 (90 Base) MCG/ACT inhaler, Inhale 2 puffs. (Patient not taking: Reported on 05/14/2024), Disp: , Rfl: aspirin 81 MG EC tablet, Take 81 mg by mouth in the morning. (Patient not taking: Reported on 05/14/2024), Disp: , Rfl: cholecalciferol (Vitamin D-3) 50 MCG (1999) tablet, Take 1 tablet by mouth in the morning., Disp: , Rfl: Continuous Blood Gluc Sensor (ParseStyle [place] 2 Sensor) misc, APPLY SENSOR TO BACK OF UPPER ARM,REMOVE AND REPLACE EVERY 14 DAYS, Disp: 3 each, Rfl: 2 Continuous Blood Gluc Transmit (Dexcom G6 transmitter) misc, Change every 90 days, Disp: , Rfl: DULoxetine (Cymbalta) [address] capsule, Take 30 mg by mouth in the morning., Disp: , Rfl: escitalopram (Lexapro) 20 MG tablet, Take 1 tablet by mouth in the morning., Disp: , Rfl: fluticasone (Flonase) 50 MCG/ACT nasal spray, Administer 1 spray into affected nostril(s)., Disp: ,Rfl: Glucose Blood (Blood Glucose Test) strip, Test 5 times a day & as needed for symptoms of irregular blood glucose., Disp: , Rfl: glucose blood (OneTouch Verio) test strip, Test 4 times per day. DX:E10.9, Disp: 100 each, Rfl: 3 ibuprofen 800 MG tablet, Take 1 tablet (800 mg) by mouth every 8 hours as needed for moderate pain (4-6)., Disp: 90 tablet, Rfl: 3 insulin lispro (HumaLOG) 100 UNIT/ML injection, Inject insulin continuous via Insulin Pump. Strength: 100 UNIT/ML, Disp: 10 mL, Rfl: 3 levothyroxine (Synthroid, Levoxyl) 125 MCG tablet, TAKE ONE TABLET BY MOUTH EVERY MORNING ON EMPTY STOMACH Strength: 125 mcg, Disp: 90 tablet, Rfl: 1 loratadine (Claritin) 10 MG tablet, Take 10 mg by mouth in the morning., Disp: , Rfl: Ostomy Supplies (Skin Tac Adhesive Barrier Wipe) misc, 1 each every 14 (fourteen) days., Disp: 50 each, Rfl: 3 triamcinolone (Kenalog) 0.1 % cream, APPLY TOPICALLY TO THE AFFECTED AREA THREE TIMES DAILY DIRECTED (Patient not taking: Reported on 05/14/2024), Disp: , Rfl: Family History and Social History: Family History Family History Problem Relation Name Age of Onset Colon cancer Maternal Grandmother No Known Problems Father No Known Problems Mother Other ([id number]) Sister MS Heart disease Paternal Grandmother Social History Social History Tobacco Use Smoking status: Every Day Current packs/day: 0.50 Types: Cigarettes Smokeless tobacco: Never Substance Use Topics Alcohol use: Not Currently Drug use: Yes Types: Cocaine Comment: few slips ups recently Erin Morris MD Cardiology [facility] Cardiovascular [address] [address] p [phone] f [phone] I spent a total time of 30 minutes of the day of service that included: [x] Preparing to see the patient [x] Obtaining and/or reviewing separately obtained history [x] Ordering prescription medications, tests, and procedures [x] Communicating results to the patient/family/caregiver [x] Documenting clinical information in the patient's electronic record [x] Coordination of care for the patient [x] Performing a medically appropriate exam and/or evaluation documented in this [facility]02-07-2025 Telephone encounter Note* Telephone Encounter - Betty Ovalles - 08/17/2024 4:18 PM EST Patient called Dr. Arias's office and asked if the 6 month follow up could be done sooner as he is not working right now. I spoke with Dr. Arias and he said a 3 month follow up is ok with him. I called and left patient a message stating Dr. Arias is ok with him having the testing and visitwith him in November of this year, [facility]02-07-2025 Miscellaneous Notes* Telephone Encounter - Betty Ovalles - 08/17/2024 4:18 PM EST Patient called Dr. Arias's office and asked if the 6 month follow up could be done sooner as he is not working right now. I spoke with Dr. Arias and he said a 3 month follow up is ok with him. I called and left patient a message stating Dr. Arias is ok with him having the testing and visitwith him in November of this year, documented in this encounterC[facility]02-07-2025 Telephone encounter Note * Telephone Encounter - Josselyn Rasuch RN - 08/17/2024 1:[address] Arias requesting follow-up appointments in six months after completion of his virtual visit with the patient on 08/15. Will proceed with scheduling process. [facility]02-07-2025 Miscellaneous Notes* Telephone Encounter - Josselyn Rausch RN - 08/17/2024 1:[address] Arias requesting follow-up appointments in six months after completion of his virtual visit with the patient on 08/15. Will proceed with scheduling process. documented in this encounterCleveland Clinic [facility]or Hospital02-05-2025 [facility]02-05-2025 History of Present illness Narrative* Roscoe Arias MD - 08/15/2024 12:51 PM EST Thoracic and Cardiovascular Surgery [facility] CARDIOTHORACIC CLINIC NOTE CHART COPY DO NOT DISCARD Patient Type: Established Visit to determine Surgery: No PCP: Sruthi Ambrosio [address] [place] [address] Referring Physician:: No referring provider defined for this encounter. Mr. Luisito Zhong returns to clinic today for follow-up after heart surgery. He is a 44 year old male who had redo Aortic Valve Replacement+root enlargement and subaoretic membrane resection by me in 2021. ECHO from outside shows normal EF, mean gradient across AV #25 Inspiris of 30mmHg; no AR; mild TR.. Impression: Stable, possible early SVR of AV Plan: LAWSON here at [facility] in next 6 months. I spent more than 50% of the visit face to face counseling the patient on the plan and treatment options. The time spent counseling was 20 minutes. The total time of the face to face visit was 20 minutes. These findings will be communicated back to the requesting physician via mail. Roscoe Arias MD [facility] History of Present illness Narrative* Erin Morris MD - 08/07/2024 2:54 PM EST Called patient to review echo. The echo comments on elevated gradients across the LVOT. He recently had subaortic membrane resection and SAVR at [facility] in 2021- it would be relatively unusual for progression of PrAV stenosis at this time point, which raises suspicion for either LVOT obstruction via hypertrophy or recurrence of membrane. Will obtain echo images from [facility] [place], and plan either LAWSON/MRI. Mr. Zhong reports some slowly increasing exertional limitation. He has reached out to his surgeon at [facility], Dr. Fuentes as well. documented in this [facility]11-04-2024 History of Present illness Narrative* Luz Maria Perez MD - 05/14/2024 9:15 AM EST Subjective: Patient: Luisito Zhong is a 44 y.o. male HPI Luisito Zhong is 44 years old. His last visit was 1 year ago. 5 years ago he had surgery for a subaortic membrane which resulted in an outflow tract obstruction this was completed by Dr. Olman Cabrera. Unfortunately then reoccurring 2-1/2 years ago he was sent to the clinic clinic where he had a memb seema removed again and then the aortic valve was replaced with a bioprosthetic valve. In the past he has had issues with cocaine and methamphetamine use. This has been problematic. During his last visit he reported some cocaine use. In the past she has had normal left ventricular function. He has had arthritic pain and primarily involving his right hip. During his last visit he was stable he continued with a grade 1-2 systolic murmur which was unchanged from the past. He had recent blood work which showed normal hemoglobin of 14.9. Today he presents for follow-up after his aortic membrane removal and aortic valve replacement. Review of Systems Constitutional: Negative. HENT: Negative. Eyes: Negative. Respiratory: Positive for shortness of breath. Cardiovascular: Negative. Gastrointestinal: Negative. Endocrine: Negative. Genitourinary: Negative. Musculoskeletal: Negative. Skin: Negative. Allergic/Immunologic: Negative. Neurological: Negative. Hematological: Negative. Psychiatric/Behavioral: Negative. Allergies Allergen Reactions Hydromorphone Itching Tramadol Other reaction(s): Other: See Comments Burning skin Burning skin @MEDCMED@ Past Medical History: Diagnosis Date Anxiety Aortic stenosis Carpal tunnel syndrome 2018 right Cocaine abuse ([facility]) Depression Diabetes mellitus type 1 (HCC) 1984 Hyperlipidemia Thyroid disease Past Surgical History: Procedure Laterality Date CARDIAC SURGERY 01/26/2022 CARPAL TUNNEL RELEASE ELBOW SURGERY Right 2018 cubital tunnel syndrome HIP SURGERY Right OTHER SURGICAL HISTORY 12/20/2018 resection of LV outflow tract obstruction-subaortic valve membrane OTHER SURGICAL HISTORY Left 11/30/2018 Carpel Tunnel SHOULDER SURGERY Left 2012 adhesive capsulitis CHASE and arthroscopy Family History Problem Relation Name Age of Onset Colon cancer Maternal Grandmother No Known Problems Father No Known Problems Mother Other ([id number]) Sister MS Heart disease Paternal Grandmother Social History Tobacco Use Smoking status: Every Day Current packs/day: 0.50 Types: Cigarettes Smokeless tobacco: Never Substance Use Topics Alcohol use: Not Currently Objective: There were no vitals taken for this visit. Physical Exam Vitals and nursing note reviewed. Constitutional: Appearance: Normal appearance. HENT: Head: Normocephalic and atraumatic. Nose: Nose normal. Eyes: Extraocular Movements: Extraocular movements intact. Conjunctiva/sclera: Conjunctivae normal. Pupils: Pupils are equal, round, and reactive to light. Cardiovascular: Rate and Rhythm: Normal rate and regular rhythm. Pulses: Normal pulses. Heart sounds: Murmur heard. Systolic murmur is present with a grade of 2/6. Pulmonary: Effort: Pulmonary effort is normal. Breath sounds: Normal breath sounds. Abdominal: General: Abdomen is flat. Bowel sounds are normal. Palpations: Abdomen is soft. Musculoskeletal: General: No swelling. Normal range of motion. Cervical back: Normal range of motion and neck supple. Skin: General: Skin is warm and dry. Neurological: General: No focal deficit present. Mental Status: He is alert and oriented to person, place, and time. Mental status is at baseline. Psychiatric: Mood and Affect: Mood normal. Behavior: Behavior normal. Thought Content: Thought content normal. Assessment 1. Subvalvar aortic stenosis 2. Congenital subaortic stenosis 3. Subaortic membrane 4. S/P AVR (aortic valve replacement) 5. History of cocaine use Plan Luisito Zhong from a cardiac standpoint appears stable although he continues to struggle with his cocaine use. He is unemployed lives with his parents. His exam shows a 2/6 murmur right upper sternal border. I performed a [id number]-sv-[id number] cardiac ultrasound I did not get a clear view of his prosthetic aortic valve although his LV function appeared normal. It has been several years since his second valve surgery and sob aortic membrane removal I asked him to complete another echocardiogram to reevaluate his valve and if the membrane reoccurred. He has had no chest pain or significant shortness of breath. Today I did not change his medications the only testing was a [id number] echo in the office and I ordered a formal echocardiogram to get a better view of his prosthesis. 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 Certainly will forward him all this information. Luz Maria Perez MD 05/14/2024 6:54 AM In preparation for this encounter, we have personally reviewed pertinent lab work, imaging, and cardiac testing. documented in this [facility]10-21-2024 Telephone encounter Note* Telephone Encounter - Valeria Hare - 04/30/2024 11:02 AM EDT 1st Attempt Called but number said there are calling restrictions and won't allow the call to go through. Left a vm on swapnil Carnes's phone (listed as a contact) to call if she has any new contact info for patient. Told her she can ask to be transferred to the [facility] front desk monitor. Valeria Hare April 30, 2024 11:02 AM [facility]10-[facility] Miscellaneous Notes* Telephone Encounter - Valeria Hare - 04/30/2024 11:02 AM EDT 1st Attempt Called but number said there are calling restrictions and won't allow the call to go through. Left a vm on swapnil Carnes's phone (listed as a contact) to call if she has any new contact info for patient. Told her she can ask to be transferred to the [employer] front desk monitor. Valeria Hare April 30, 2024 11:02 AM * Telephone Encounter - Anita Dan - 04/30/2024 10:09 AM EDT Received a fax form [employer] for pts diabetes supplies. Pt has not been seen in over a year, need appointment. Anita Dan documented [facility] Telephone encounter Note * Telephone Encounter - Anita Dan - 04/30/2024 10:09 AM EDT Received a fax form [employer] for pts diabetes supplies. Pt has not been seen in over a year, need appointment. Anita Dan [facility]10-02-[facility] Hospital Discharge instructions Patient Education 04/11/2024 04:39:57 High Blood Sugar (Hyperglycemia) High Blood Sugar (Hyperglycemia) Too much sugar (glucose) in your blood is called high blood sugar (hyperglycemia). This can lead toa dangerous condition called ketoacidosis. In severe cases, it can lead to fluid loss (dehydration)and coma. Possible causes of high blood sugar Having a poor treatment plan for diabetes Being sick Being under stress Taking certain medicines, such as steroids Eating too much food, especially carbohydrates Being less active than normal Not taking enough diabetes medicine Symptoms of high blood sugar High blood sugar may not cause symptoms. If you do have symptoms, they may include: Thirst Frequent need to urinate Feeling tired or drowsy Nausea and vomiting Itchy, dry skin Blurry vision Fast breathing and breath that smells fruity Weakness Dizziness Wounds or skin infections that don t heal Unexplained weight loss if hyperglycemia lasts for more than a few days What to do Do the following: Check your blood sugar. Drink plenty of sugar-free, caffeine-free liquids such as water. Don t drink fruit juice. Check your blood sugar again every 4 hours. If you take insulin or diabetes medicines, follow your sick-day plan for taking medicine. Call your healthcare provider if you are not able to eat. Check your blood or urine for ketones as directed. Call your provider if your blood sugar and ketones don't go back to your target range. If the value is high, take your diabetes medicines as prescribed. And check your blood sugar more often. Doses of medicines such as insulin can be increased slightly if blood sugars stay high. But your provider must approve this. Preventing high blood sugar To help keep your blood sugar from getting too high: Control stress. When you're ill, follow your sick-day plan. Follow your meal plan. Eat only the amount of food on your meal plan. Stick to your exercise plan. Take your insulin or diabetes medicines as directed by your healthcare team. Also test your blood sugar as directed. If the plan is not working for you, discuss it with your healthcare provider. Other things to do Carry a medical ID card or a [address]achute[address] drive. Or wear a medical alert bracelet or necklace. It should say that you have diabetes. It should also say what to do in case you pass out or go into a coma. Make sure family, friends, and coworkers know the signs of high blood sugar. Tell them what to do if your blood sugar gets very high and you can t help yourself. Talk with your healthcare team about other things you can do to prevent high blood sugar. Special note: Drink plenty of sugar-free and caffeine-free liquids when you feel symptoms of hyperglycemia. Call your healthcare provider if you keep having episodes of high blood sugar. [id number] [employer]. [address] [place] [address]. All rights reserved. This information is not intended as a substitute for professional medical care. Always follow yourhealthcare professional's instructions. Follow Up Care 04/11/2024 00:37:27 With:SRUTHI AMBROSIO Address: [address] [place] [phone] When:2-4 days [facility] 10-02-2024 Emergency department Discharge summary Discharge Instructions Thank you for allowing [facility] to assist you with your healthcare needs. The following is importantdischarge information regarding your hospital visit. Diagnosis from Today's Visit Hyperglycemia What to Do Next Instructions from Your Care Team No qualifying data available. Post Acute Orders No qualifying data available. You Need to Schedule the Following Appointments Follow Up with SRUTHI AMBROSIO When:Within 2-4 days Where:[address] [place] [phone] Allergies Dilaudid traMADol Medications Please ask your primary doctor or pharmacist before taking any other medication not listed, including over the counter drugs, herbal medications, vitamins and or supplements as they may interact withyour home medications. What How Much When Instructions Last Dose Unchanged acetaminophen (acetaminophen 500 mg oral tablet) 2 tab(s) by mouth Every 6 hours as needed for as needed for pain Unchanged DME (Dexcom G7 Sensor) See instructions Place once sensor to the back of the upper arm every 10 days. Use reader or phone efe for daily blood sugar checks. 1 month supply. Unchanged DULoxetine (DULoxetine 30 mg oral delayed release capsule) 1 cap by mouth Once a day Unchanged escitalopram (escitalopram 20 mg oral tablet) 1 tab(s) by mouth Once a day Unchanged fluticasone nasal (fluticasone proprionate NASAL 50 mcg/ spray) 1 spray(s) each nostril Once a day Unchanged ibuprofen (ibuprofen 800 mg oral tablet) 1 tab(s) by mouth Every 6 hours as needed for as needed for pain Unchanged insulin lispro (HumaLOG) (HumaLOG 100 units/ mL injectable solution VIAL) Sliding Scale Subcutaneous Four (4) times daily-before meals and at bedtime 125 units daily via insulin pump Unchanged levothyroxine (levothyroxine 150 mcg (0.15 mg) oral tablet) 1 tab(s) by mouth Once a day Unchanged rosuvastatin (Crestor 5 mg oral tablet) 1 tab(s) by mouth Once a day Please take this list to your next doctor s visit. Bring all medications you take, including over the counter medications, herbals and other supplements with you to your doctor s visit. Patients and families are reminded to discard old lists and to update any records with all medication providers or retail pharmacies. Education Materials High Blood Sugar (Hyperglycemia) Too much sugar (glucose) in your blood is called high blood sugar (hyperglycemia). This can lead toa dangerous condition called ketoacidosis. In severe cases, it can lead to fluid loss (dehydration)and coma. Possible causes of high blood sugar Having a poor treatment plan for diabetes Being sick Being under stress Taking certain medicines, such as steroids Eating too much food, especially carbohydrates Being less active than normal Not taking enough diabetes medicine Symptoms of high blood sugar High blood sugar may not cause symptoms. If you do have symptoms, they may include: Thirst Frequent need to urinate Feeling tired or drowsy Nausea and vomiting Itchy, dry skin Blurry vision Fast breathing and breath that smells fruity Weakness Dizziness Wounds or skin infections that don t heal Unexplained weight loss if hyperglycemia lasts for more than a few days What to do Do the following: Check your blood sugar. Drink plenty of sugar-free, caffeine-free liquids such as water. Don t drink fruit juice. Check your blood sugar again every 4 hours. If you take insulin or diabetes medicines, follow your sick-day plan for taking medicine. Call your healthcare provider if you are not able to eat. Check your blood or urine for ketones as directed. Call your provider if your blood sugar and ketones don't go back to your target range. If the value is high, take your diabetes medicines as prescribed. And check your blood sugar more often. Doses of medicines such as insulin can be increased slightly if blood sugars stay high. But your provider must approve this. Preventing high blood sugar To help keep your blood sugar from getting too high: Control stress. When you're ill, follow your sick-day plan. Follow your meal plan. Eat only the amount of food on your meal plan. Stick to your exercise plan. Take your insulin or diabetes medicines as directed by your healthcare team. Also test your blood sugar as directed. If the plan is not working for you, discuss it with your healthcare provider. Other things to do Carry a medical ID card or a compact USB drive. Or wear a medical alert bracelet or necklace. It should say that you have diabetes. It should also say what to do in case you pass out or go into a coma. Make sure family, friends, and coworkers know the signs of high blood sugar. Tell them what to do if your blood sugar gets very high and you can t help yourself. Talk with your healthcare team about other things you can do to prevent high blood sugar. Special note: Drink plenty of sugar-free and caffeine-free liquids when you feel symptoms of hyperglycemia. Call your healthcare provider if you keep having episodes of high blood sugar. [phone] [employer]. [address] [place] [address]. All rights reserved. This information is not intended as a substitute for professional medical care. Always follow yourhealthcare professional's instructions. Additional Information VACCINATE! IT SAVES LIVES! Members of the community who have not yet received the COVID-19 vaccine and would like to receive it can visit one of [facility] vaccine clinics. There are many vaccine clinic locations within the [facility]. For locations and available times, please visit www.gettheshot.coronavirus.[place].gov/. It is important to note that some COVID mobile vaccine clinics are held outdoors and may be canceled in rainy or stormy conditions. To learn more about pediatric vaccinations (ages 5-11), we invite you to visit the [facility] webpage. [email or web address].[email or web address]/[email or web address]-Vcmrg-Tcgxtwvwmxg-Lxwxgfevyq-[email or web address]-[email or web address] stions.htmlTo learn more about the COVID-19 vaccine, we invite you to visit the CDC website for a list of frequently asked questions. https://www.cdc.gov/coronavirus/2019-ncov/vaccines/faq.html [facility] Patient Portal Access Instructions: Stay connected with your healthcare team and access your personal medical information anytime with the [facility] Patient Portal. If you would like a full copy of your medical records please contact the [facility] Medical Records Department Tuesday through Tuesday between 8a.m. and 4:30p.m. Please follow the directions below to access the portal: 1.Access the email account you provided upon registration to the [facility].2.Look for an invitation email from [facility].3.Open the email and access the invitation link: Accept Invitation to [facility]4.Fill in the required sy to create your account. Sign into [email or web address] with your username and password that you created in the above steps to stay up to date. You can then view a summary of results, a summary of your visits, and the ability to download your summaries to your computer or send the information securely to a physician. Remember that your healthcare information is confidential, so carefully consider who you will allow to register on the [facility] Patient Portal for access to your information. You can also access the [facility] Patient Portal on the Divided. Simply click on Health Records under bSafe and then click on the [employer] logo. HOW TO SAFELY DISPOSE OF PRESCRIPTION MEDICATIONS Please use one of the following methods to safely dispose of your unused medications. 1.Use a drug disposal kit: the drug disposal pouch allows you to safely discard your old and unuseddrugs. Ask your nurse to give you one when you are discharged.2.Visit a local take-back location: Many local pharmacies and police departments have programs that collect old and unwanted prescriptiondrugs. Call your local pharmacy or go to http://Blowtorch.Nexsan/7N3Jz3w to find one close to you.3.Make use of household items: Use cat litter or old coffee grounds to dispose medications if other options arenot available. Mix your drugs with these household products, seal them in an airtight container andthrow it into the garbage. Call [facility]: [phone] to be sure your drugs can be disposed of in this way. Some medicines may require a different approach.4.Never flush your medications down the toilet. IF YOU HAVE BEEN PRESCRIBED AN OPIOIDS FOR PAIN If you have been prescribed an opioid (such as hydrocodone, oxycodone or morphine), it is critical to understand the possible side effects and risks of opioid pain medications. Even when taken as directed, opioids can have several side effects including: Tolerance, meaning you might need to take more of a medication for the same pain relief. Nausea, vomiting and/or constipation. Sleepiness, dizziness, dry mouth, confusion, depression or itching. Physical dependence, meaning you have withdrawal symptoms when a medication is stopped ? this can develop within a few days. KNOW YOUR RESPONSIBILITIES It is important to know exactly how much and how often to take the opioid pain medications you are prescribed. Never take opioids in higher amounts or more often than prescribed. Do not combine opioids with alcohol or other drugs that cause drowsiness, such as benzodiazepines, also known as benzos,including diazepam and alprazolam, muscle relaxants or sleep aids. Never sell or share prescriptionopioids. This is illegal. Store opioids in a secure place and out of reach of others (including children, family, friends and visitors). The last page(s) of this document has been signed and retained as a CHART COPY Signatures Patient Education Materials High Blood Sugar (Hyperglycemia) Medication Leaflets My discharge plan and instructions have been reviewed and explained to me and IFARHEEN DOUGLAS S understand my current condition and have read and understand these discharge instructions. I have received a written copy of the plan/instructions. If I have questions, I am aware that I should contact my doctor. Patient/Supervisor Insulation Signature: Date/Time: Relationship to Patient: Witness Name/Signature: [id number] Note ORIGINAL EXAMINATION: THREE XRAY VIEWS OF THE RIGHT FOOT 04/11/2024 3:06 am COMPARISON: None. HISTORY: ORDERING SYSTEM PROVIDED HISTORY: Reason for Exam: pain FINDINGS: No acute fracture or dislocation. There is minimal periarticular erosion of the 1st metatarsal at the 1st MTP joint. Additionally there is slight lucency of the 1st distal metatarsal with serpiginous sclerosis. Os peroneum. Minimal degenerative changes scattered about the forefoot and at 1st tarsometatarsal joint. Tiny calcaneal enthesophytes. No significant tibiotalar joint effusion. Minimal soft tissue swelling at the level of the 1st metatarsophalangeal joint. IMPRESSION: There is subtle periarticular erosion at the medial aspect of the distal 1st metatarsal. Additional slight lucency of the 1st metatarsal at this site. Given that this area is subjacent to the known soft tissue ulceration it is difficult to fully exclude osteitis/osteomyelitis. Although the location and beginnings of potential overhanging edge may also represent early gout. Ultimately, consideration for 3 phase bone scan or MRI may be necessary if there is high clinical concern for osteomyelitis. Preliminary Report was Dictated by a Resident Interpreted by: Capo Vasquez MD Preliminary Report By: Cr Watson Electronically signed By Capo Vasquez MD Dictated Date: 04/11/2024 3:09:52 AM Prelim Date: 04/11/2024 3:25:31 AM Sign Date: 04/11/2024 4:01:12 AM Ordering Provider: [facility]09-27-2024 Hospital Discharge instructions Patient Education 04/06/2024 08:58:22 Possible Causes of Dizziness or Fainting Possible Causes of Dizziness or Fainting Dizziness and fainting can have many causes. Below are some examples of possible causes your healthcare provider will look to rule out. Benign paroxysmal positional vertigo (BPPV) BPPV results when calcium crystals inside the inner ear shift into the wrong position. BPPV causes episodes of vertigo, a spinning sensation. Episodes most often happen when the head is moved in a certain way. This is more common in people age 65 and older. Infection or inflammation The semicircular canals of the ear may become infected or inflamed. In this case, they can send thewrong balance signals. This can cause vertigo. Meniere disease Meniere disease happens when there is too much fluid in the semicircular canals. This can cause vertigo. It also can cause hearing problems and buzzing or ringing in the ears (called tinnitus). You may also have a feeling of pressure or fullness in the ear. Syncope Syncope is fainting that happens when the brain doesn t get enough oxygen-rich blood. It can be caused by low heart rate or low blood pressure. This is called vasovagal syncope. It can also be causedby sitting or standing up too quickly. This is called orthostatic hypotension. Syncope may also be due to a heart valve problem, an abnormal heart rhythm, or other heart problems. Dizziness can also happen from stroke, hemorrhage in the brain, or other problems in the brain. Your healthcare provider may do certain tests to rule out these conditions. Other causes Other causes include: Medicines. Certain medicines can cause dizziness and even fainting. In some cases, stopping a medicine too quickly can lead to withdrawal symptoms, including dizziness and fainting. Anxiety. Being anxious can lead to breathing changes, such as hyperventilation. These can lead to dizziness and fainting. Additional causes for dizziness and fainting also exist. Talk with your healthcare provider for more information. [phone] [employer]. [address] [place] [address]. All rights reserved. This information is not intended as a substitute for professional medical care. Always follow yourhealthcare professional's instructions. Follow Up Care 04/06/2024 04:36:51 With:Please call your detective homicide squad today to set up an appointment Address:Unknown When:2-4 days Comments:Schedule appointment as soon as possibleReturn to ED if symptoms worsenCall today for follow-up appointmentFollow-up for outpatient echocardiogram and vascular studies of your neckIncrease fluidsTry to stop cocaineReturn for any worsening symptoms With:SRUTHI AMBROSIO Address: [address] [place] [phone] When:2-4 days [facility] 09-27-2024 Emergency department Discharge summary Discharge Instructions Thank you for allowing [facility] to assist you with your healthcare needs. The following is importantdischarge information regarding your hospital visit. Diagnosis from Today's Visit Cocaine misuse Headache What to Do Next Instructions from Your Care Team Please call your detective homicide squad to schedule an appointment. If your symptoms worsen, please return tothe ER. Make sure to increase your fluids No qualifying data available. Post Acute Orders No qualifying data available. You Need to Schedule the Following Appointments Follow Up with Please call your detective homicide squad today to set up an appointment When:Within 2-4 days Additional Information: Schedule appointment as soon as possible Return to ED if symptoms worsen Call today for follow-up appointment Follow-up for outpatient echocardiogram and vascular studies of your neck Increase fluids Try to stop cocaine Return for any worsening symptoms Follow Up with SRUTHI AMBROSIO When:Within 2-4 days Where:[address] [place] [phone] Allergies Dilaudid traMADol Medications Please ask your primary doctor or pharmacist before taking any other medication not listed, including over the counter drugs, herbal medications, vitamins and or supplements as they may interact withyour home medications. What How Much When Instructions Last Dose Unchanged acetaminophen (acetaminophen 500 mg oral tablet) 2 tab(s) by mouth Every 6 hours as needed for as needed for pain Unchanged DME (Dexcom G7 Sensor) See instructions Place once sensor to the back of the upper arm every 10 days. Use reader or phone efe for daily blood sugar checks. 1 month supply. Unchanged DULoxetine (DULoxetine 30 mg oral delayed release capsule) 1 cap by mouth Once a day Unchanged escitalopram (escitalopram 20 mg oral tablet) 1 tab(s) by mouth Once a day Unchanged fluticasone nasal (fluticasone proprionate NASAL 50 mcg/ spray) 1 spray(s) each nostril Once a day Unchanged ibuprofen (ibuprofen 800 mg oral tablet) 1 tab(s) by mouth Every 6 hours as needed for as needed for pain Unchanged insulin lispro (HumaLOG) (HumaLOG 100 units/ mL injectable solution VIAL) Sliding Scale Subcutaneous Four (4) times daily-before meals and at bedtime 125 units daily via insulin pump Unchanged levothyroxine (levothyroxine 150 mcg (0.15 mg) oral tablet) 1 tab(s) by mouth Once a day Unchanged rosuvastatin (Crestor 5 mg oral tablet) 1 tab(s) by mouth Once a day Please take this list to your next doctor s visit. Bring all medications you take, including over the counter medications, herbals and other supplements with you to your doctor s visit. Patients and families are reminded to discard old lists and to update any records with all medication providers or retail pharmacies. Education Materials Possible Causes of Dizziness or Fainting Dizziness and fainting can have many causes. Below are some examples of possible causes your healthcare provider will look to rule out. Benign paroxysmal positional vertigo (BPPV) BPPV results when calcium crystals inside the inner ear shift into the wrong position. BPPV causes episodes of vertigo, a spinning sensation. Episodes most often happen when the head is moved in a certain way. This is more common in people age 65 and older. Infection or inflammation The semicircular canals of the ear may become infected or inflamed. In this case, they can send thewrong balance signals. This can cause vertigo. Meniere disease Meniere disease happens when there is too much fluid in the semicircular canals. This can cause vertigo. It also can cause hearing problems and buzzing or ringing in the ears (called tinnitus). You may also have a feeling of pressure or fullness in the ear. Syncope Syncope is fainting that happens when the brain doesn t get enough oxygen-rich blood. It can be caused by low heart rate or low blood pressure. This is called vasovagal syncope. It can also be causedby sitting or standing up too quickly. This is called orthostatic hypotension. Syncope may also be due to a heart valve problem, an abnormal heart rhythm, or other heart problems. Dizziness can also happen from stroke, hemorrhage in the brain, or other problems in the brain. Your healthcare provider may do certain tests to rule out these conditions. Other causes Other causes include: Medicines. Certain medicines can cause dizziness and even fainting. In some cases, stopping a medicine too quickly can lead to withdrawal symptoms, including dizziness and fainting. Anxiety. Being anxious can lead to breathing changes, such as hyperventilation. These can lead to dizziness and fainting. Additional causes for dizziness and fainting also exist. Talk with your healthcare provider for more information. [phone] [employer]. [address] [place] [address], [place] [address]. All rights reserved. This information is not intended as a substitute for professional medical care. Always follow yourhealthcare professional's instructions. Additional Information VACCINATE! IT SAVES LIVES! Members of the community who have not yet received the COVID-19 vaccine and would like to receive it can visit one of [facility] vaccine clinics. There are many vaccine clinic locations within the [facility]. For locations and available times, please visit www.[email or web address].[place].gov/. It is important to note that some COVID mobile vaccine clinics are held outdoors and may be canceled in rainy or stormy conditions. To learn more about pediatric vaccinations (ages 5-11), we invite you to visit the [facility] webpage. https://www.[email or web address].org/pages/5375-Twfpq-Kdddwbuzggp-Oyewcfbkin-Celvk-Hgf stions.htmlTo learn more about the COVID-19 vaccine, we invite you to visit the CDC website for a list of frequently asked questions. https://www.cdc.gov/coronavirus/2019-ncov/vaccines/faq.html [facility] Patient Portal Access Instructions: Stay connected with your healthcare team and access your personal medical information anytime with the [facility] Patient Portal. If you would like a full copy of your medical records please contact the [facility] Medical Records Department Tuesday through Tuesday between 8a.m. and 4:30p.m. Please follow the directions below to access the portal: 1.Access the email account you provided upon registration to the [facility].2.Look for an invitation email from [facility].3.Open the email and access the invitation link: Accept Invitation to [facility]4.Fill in the required sy to create your account. Sign into [email or web address] with your username and password that you created in the above steps to stay up to date. You can then view a summary of results, a summary of your visits, and the ability to download your summaries to your computer or send the information securely to a physician. Remember that your healthcare information is confidential, so carefully consider who you will allow to register on the [facility] Patient Portal for access to your information. You can also access the [facility] Patient Portal on the [employer] efe. Simply click on Health Records under bSafe and then click on the [facility] logo. HOW TO SAFELY DISPOSE OF PRESCRIPTION MEDICATIONS Please use one of the following methods to safely dispose of your unused medications. 1.Use a drug disposal kit: the drug disposal pouch allows you to safely discard your old and unuseddrugs. Ask your nurse to give you one when you are discharged.2.Visit a local take-back location: Many local pharmacies and police departments have programs that collect old and unwanted prescriptiondrugs. Call your local pharmacy or go to http://Blowtorch.Nexsan/0P5Tg7g to find one close to you.3.Make use of household items: Use cat litter or old coffee grounds to dispose medications if other options arenot available. Mix your drugs with these household products, seal them in an airtight container andthrow it into the garbage. Call [facility]: [phone] to be sure your drugs can be disposed of in this way. Some medicines may require a different approach.4.Never flush your medications down the toilet. IF YOU HAVE BEEN PRESCRIBED AN OPIOIDS FOR PAIN If you have been prescribed an opioid (such as hydrocodone, oxycodone or morphine), it is critical to understand the possible side effects and risks of opioid pain medications. Even when taken as directed, opioids can have several side effects including: Tolerance, meaning you might need to take more of a medication for the same pain relief. Nausea, vomiting and/or constipation. Sleepiness, dizziness, dry mouth, confusion, depression or itching. Physical dependence, meaning you have withdrawal symptoms when a medication is stopped ? this can develop within a few days. KNOW YOUR RESPONSIBILITIES It is important to know exactly how much and how often to take the opioid pain medications you are prescribed. Never take opioids in higher amounts or more often than prescribed. Do not combine opioids with alcohol or other drugs that cause drowsiness, such as benzodiazepines, also known as benzos,including diazepam and alprazolam, muscle relaxants or sleep aids. Never sell or share prescriptionopioids. This is illegal. Store opioids in a secure place and out of reach of others (including children, family, friends and visitors). The last page(s) of this document has been signed and retained as a CHART COPY Signatures Patient Education Materials Possible Causes of Dizziness or Fainting Medication Leaflets My discharge plan and instructions have been reviewed and explained to me and IFARHEEN DOUGLAS S understand my current condition and have read and understand these discharge instructions. I have received a written copy of the plan/instructions. If I have questions, I am aware that I should contact my doctor. Patient/Supervisor Insulation Signature: Date/Time: Relationship to Patient: Witness Name/Signature: Date[id number] NoteSINUS RHYTHM LEFT ATRIAL ENLARGEMENT SEE DICTATION Electronic Signature: ROMAN FERNÁNDEZ MD [facility]06[facility]24 [facility] Note ORIGINAL EXAMINATION: ONE XRAY VIEW OF THE CHEST 04/06/2024 5:02 am COMPARISON: Chest x-ray on 03/29/2024 HISTORY: ORDERING SYSTEM PROVIDED HISTORY: Reason for Exam: chest pain FINDINGS: Sternal wire sutures are intact. The heart size and mediastinal contours are normal. There is no acute lung infiltrate or edema. No pneumothorax or pleural fluid is present. There is no acute skeletal abnormality. IMPRESSION: No acute cardiopulmonary process. Interpreted by: Jaret Damian MD Preliminary Report By: Jaret Damian MD Electronically signed By Jaret Damian MD Dictated Date: 04/06/2024 5:08:00 AM Prelim Date: 04/06/2024 5:08:54 AM Sign Date: 04/06/2024 5:08:54 AM Ordering Provider: [facility]CO[facility] Nurse Progress note Pt is in room making calls to [employer] to set up a ride for continuation of care to detox. Digitally Signed by Bernice Pineda LPN on 03/29/2024 11:18 AM [id number] Hospital Discharge instructions Patient Education 03/29/2024 08:00:57 Cocaine And Crack Abuse Cocaine and Crack Abuse Cocaine is typically snorted or injected intravenously (IV). Crack is made from cocaine. It can be smoked, causing a more potent effect. Cocaine causes a very powerful psychological and physiologicaldependence. Once you have a dependence, you will do just about anything to get the drug and recreate the feeling it produces. This can increase your risk for any of the following: Overdose that may lead to Loss of your job, your home, your family Accidental injuries to yourself or others while you are under the influence of the drug (in a car or at home) Arrest, conviction, and mcc sentence for possession of an illegal substance or for driving under the influence Medically, cocaine can affect every organ in your body. It can cause: Chest pain, arrhythmia (abnormal heart beating), heart attack, heart failure Severe headache, seizures, loss of consciousness, stroke Anxiety, psychosis, confusion, paranoia, hallucinations Nasal damage (from snorting) Nausea, abdominal pain, loss of appetite Chronic bronchitis (from smoking), shortness of breath It can place you at higher risk of HIV infection, Hepatitis B or C, heart infection (from IV use and/or risky sexual behavior while intoxicated) Kidney failure Home care The following suggestions will help you care for yourself at home: Admit you have a drug problem. Ask for help from your family and close friends. Seek psychotherapy or counseling if depression or anxiety is a problem for you. Join a self-help group for drug abuse. Avoid friends who abuse drugs themselves or tempt you to continue abusing the drug. Eat a balanced diet and begin a regular exercise program. If you continue to use IV cocaine, decrease your risk of receiving or spreading infection by: Only using sterile equipment Do not reuse or share equipment Clean the skin before injecting Follow-up care Follow up with your doctor, or as advised. Contact one of the resources below for help: National [employer] [place] on Alcoholism and Drug Dependence 644-793-NOOY www.ncadd.org Narcotics Anonymous www.na.org National Alcohol and Substance Abuse Information Center (can tell you about the drug treatment programs in your area) 930.761.1708 www.addictioncareoptions.com Call 911 Call 911 if any of these occur: Seizure Hard time breathing or slow, irregular breathing Chest pain Sudden weakness on one side of your body or sudden trouble speaking Very drowsy or trouble awakening Rapid heart rate When to seek medical advice Call your healthcare provider right away if any of these occur: Agitation, anxiety, unable to sleep Unintended weight loss (more than 10 to 15 pounds over 6 months) Hallucination, severe depression, thoughts of harming yourself or another Fever of 100.4 F (38 C) or higher, or as directed by your health care provider Redness, pain, or swelling at an injection site Loss of vision or decreased vision [phone] [employer]. [address] [place] [address], [place] [address]. All rights reserved. This information is not intended as a substitute for professional medical care. Always follow yourhealthcare professional's instructions. Follow Up Care 03/29/2024 01:45:11 With:SRUTHI AMBROSIO Address: [address] [place] [phone] When:2-4 days [facility] 09-19-2024 Emergency department Discharge summary Discharge Instructions Thank you for allowing [facility] to assist you with your healthcare needs. The following is importantdischarge information regarding your hospital visit. What to Do Next Instructions from Your Care Team No qualifying data available. Post Acute Orders No qualifying data available. You Need to Schedule the Following Appointments Follow Up with SRUTHI AMBROSIO When:Within 2-4 days Where:[address] [place] [phone] Allergies Dilaudid traMADol Medications Please ask your primary doctor or pharmacist before taking any other medication not listed, including over the counter drugs, herbal medications, vitamins and or supplements as they may interact withyour home medications. What How Much When Instructions Last Dose Unchanged acetaminophen (acetaminophen 500 mg oral tablet) 2 tab(s) by mouth Every 6 hours as needed for as needed for pain Unchanged DME (Dexcom G7 Sensor) See instructions Place once sensor to the back of the upper arm every 10 days. Use reader or phone efe for daily blood sugar checks. 1 month supply. Unchanged DULoxetine (DULoxetine 30 mg oral delayed release capsule) 1 cap by mouth Once a day Unchanged escitalopram (escitalopram 20 mg oral tablet) 1 tab(s) by mouth Once a day Unchanged fluticasone nasal (fluticasone proprionate NASAL 50 mcg/ spray) 1 spray(s) each nostril Once a day Unchanged ibuprofen (ibuprofen 800 mg oral tablet) 1 tab(s) by mouth Every 6 hours as needed for as needed for pain Unchanged insulin lispro (HumaLOG) (HumaLOG 100 units/ mL injectable solution VIAL) Sliding Scale Subcutaneous Four (4) times daily-before meals and at bedtime 125 units daily via insulin pump Unchanged levothyroxine (levothyroxine 150 mcg (0.15 mg) oral tablet) 1 tab(s) by mouth Once a day Unchanged rosuvastatin (Crestor 5 mg oral tablet) 1 tab(s) by mouth Once a day Please take this list to your next doctor s visit. Bring all medications you take, including over the counter medications, herbals and other supplements with you to your doctor s visit. Patients and families are reminded to discard old lists and to update any records with all medication providers or retail pharmacies. Education Materials Cocaine and Crack Abuse Cocaine is typically snorted or injected intravenously (IV). Crack is made from cocaine. It can be smoked, causing a more potent effect. Cocaine causes a very powerful psychological and physiologicaldependence. Once you have a dependence, you will do just about anything to get the drug and recreate the feeling it produces. This can increase your risk for any of the following: Overdose that may lead to Loss of your job, your home, your family Accidental injuries to yourself or others while you are under the influence of the drug (in a car or at home) Arrest, conviction, and mcc sentence for possession of an illegal substance or for driving under the influence Medically, cocaine can affect every organ in your body. It can cause: Chest pain, arrhythmia (abnormal heart beating), heart attack, heart failure Severe headache, seizures, loss of consciousness, stroke Anxiety, psychosis, confusion, paranoia, hallucinations Nasal damage (from snorting) Nausea, abdominal pain, loss of appetite Chronic bronchitis (from smoking), shortness of breath It can place you at higher risk of HIV infection, Hepatitis B or C, heart infection (from IV use and/or risky sexual behavior while intoxicated) Kidney failure Home care The following suggestions will help you care for yourself at home: Admit you have a drug problem. Ask for help from your family and close friends. Seek psychotherapy or counseling if depression or anxiety is a problem for you. Join a self-help group for drug abuse. Avoid friends who abuse drugs themselves or tempt you to continue abusing the drug. Eat a balanced diet and begin a regular exercise program. If you continue to use IV cocaine, decrease your risk of receiving or spreading infection by: Only using sterile equipment Do not reuse or share equipment Clean the skin before injecting Follow-up care Follow up with your doctor, or as advised. Contact one of the resources below for help: National [employer] [place] on Alcoholism and Drug Dependence 308-059-VWWJ www.ncadd.org Narcotics Anonymous www.na.org National Alcohol and Substance Abuse Information Center (can tell you about the drug treatment programs in your area) 237.561.7585 www.addictioncareCommercialTribe.HOMETRAX Call 911 Call 911 if any of these occur: Seizure Hard time breathing or slow, irregular breathing Chest pain Sudden weakness on one side of your body or sudden trouble speaking Very drowsy or trouble awakening Rapid heart rate When to seek medical advice Call your healthcare provider right away if any of these occur: Agitation, anxiety, unable to sleep Unintended weight loss (more than 10 to 15 pounds over 6 months) Hallucination, severe depression, thoughts of harming yourself or another Fever of 100.4 F (38 C) or higher, or as directed by your health care provider Redness, pain, or swelling at an injection site Loss of vision or decreased vision [phone] [employer]. [address] [place] [address]. All rights reserved. This information is not intended as a substitute for professional medical care. Always follow yourhealthcare professional's instructions. Additional Information VACCINATE! IT SAVES LIVES! Members of the community who have not yet received the COVID-19 vaccine and would like to receive it can visit one of [facility] vaccine clinics. There are many vaccine clinic locations within the [facility]. For locations and available times, please visit www.gettheshot.coronavirus.[place].gov/. It is important to note that some COVID mobile vaccine clinics are held outdoors and may be canceled in rainy or stormy conditions. To learn more about pediatric vaccinations (ages 5-11), we invite you to visit the [facility] webpage. https://www.[facility].org/pages/8441-Zgpin-Eotcoltspxo-Nkhgdcrhgp-Bwupc-Zkh stions.htmlTo learn more about the COVID-19 vaccine, we invite you to visit the CDC website for a list of frequently asked questions. https://www.cdc.gov/coronavirus/2019-ncov/vaccines/faq.html [facility] Patient Portal Access Instructions: Stay connected with your healthcare team and access your personal medical information anytime with the [facility] Patient Portal. If you would like a full copy of your medical records please contact the [facility] Medical Records Department Tuesday through Tuesday between 8a.m. and 4:30p.m. Please follow the directions below to access the portal: 1.Access the email account you provided upon registration to the [facility].2.Look for an invitation email from [facility].3.Open the email and access the invitation link: Accept Invitation to [facility]4.Fill in the required sy to create your account. Sign into [email or web address] Go with your username and password that you created in the above steps to stay up to date. You can then view a summary of results, a summary of your visits, and the ability to download your summaries to your computer or send the information securely to a physician. Remember that your healthcare information is confidential, so carefully consider who you will allow to register on the [facility] Patient Portal for access to your information. You can also access the [facility] Patient Portal on the Divided. Simply click on Health Records under bSafe and then click on the [facility] logo. HOW TO SAFELY DISPOSE OF PRESCRIPTION MEDICATIONS Please use one of the following methods to safely dispose of your unused medications. 1.Use a drug disposal kit: the drug disposal pouch allows you to safely discard your old and unuseddrugs. Ask your nurse to give you one when you are discharged.2.Visit a local take-back location: Many local pharmacies and police departments have programs that collect old and unwanted prescriptiondrugs. Call your local pharmacy or go to [email or web address]/[email or web address] to find one close to you.3.Make use of household items: Use cat litter or old coffee grounds to dispose medications if other options arenot available. Mix your drugs with these household products, seal them in an airtight container andthrow it into the garbage. Call [facility]: [phone] to be sure your drugs can be disposed of in this way. Some medicines may require a different approach.4.Never flush your medications down the toilet. IF YOU HAVE BEEN PRESCRIBED AN OPIOIDS FOR PAIN If you have been prescribed an opioid (such as hydrocodone, oxycodone or morphine), it is critical to understand the possible side effects and risks of opioid pain medications. Even when taken as directed, opioids can have several side effects including: Tolerance, meaning you might need to take more of a medication for the same pain relief. Nausea, vomiting and/or constipation. Sleepiness, dizziness, dry mouth, confusion, depression or itching. Physical dependence, meaning you have withdrawal symptoms when a medication is stopped ? this can develop within a few days. KNOW YOUR RESPONSIBILITIES It is important to know exactly how much and how often to take the opioid pain medications you are prescribed. Never take opioids in higher amounts or more often than prescribed. Do not combine opioids with alcohol or other drugs that cause drowsiness, such as benzodiazepines, also known as benzos,including diazepam and alprazolam, muscle relaxants or sleep aids. Never sell or share prescriptionopioids. This is illegal. Store opioids in a secure place and out of reach of others (including children, family, friends and visitors). The last page(s) of this document has been signed and retained as a CHART COPY Signatures Patient Education Materials Cocaine And Crack Abuse Medication Leaflets My discharge plan and instructions have been reviewed and explained to me and IFARHEEN DOUGLAS S understand my current condition and have read and understand these discharge instructions. I have received a written copy of the plan/instructions. If I have questions, I am aware that I should contact my doctor. Patient/Supervisor Insulation Signature: Date/Time: Relationship to Patient: Witness Name/Signature: [id number] Note ORIGINAL EXAMINATION: ONE XRAY VIEW OF THE CHEST 03/29/2024 3:30 am COMPARISON: Chest x-ray on 09/19/2023 HISTORY: ORDERING SYSTEM PROVIDED HISTORY: Reason for Exam: chest pain FINDINGS: Sternal wire sutures are intact. The heart size is normal. 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 There is no acute lung infiltrate or edema. No pneumothorax or pleural fluid is present. There is no acute skeletal abnormality. IMPRESSION: No acute cardiopulmonary process. Interpreted by: Jaret Damian MD Preliminary Report By: Jaret Damian MD Electronically signed By Jaret Damian MD Dictated Date: 03/29/2024 3:31:20 AM Prelim Date: 03/29/2024 3:32:53 AM Sign Date: 03/29/2024 3:32:53 AM Ordering Provider: [facility]09-19-2024 NoteSINUS RHYTHM LEFT ATRIAL ENLARGEMENT ST ELEV, PROBABLE NORMAL EARLY REPOL PATTERN Electronic Signature: ARLENE BARNETT DO 03/29/2024 07:59:25[facility] 08-26-2024 Telephone encounter Note* Telephone Encounter - Marina Orantes - 03/05/2024 11:56 AM EDT [employer] No-Show Documentation Luisito shaw showed for an appointment on 03/05/24 with Sruthi Ambrosio APRN. at 8:00 am. The patient was was scheduled for a follow up appointment. I called and spoke with the patient regarding missed appointment. N/A- NO ANSWER/VOICEMAIL FILL The patient stated the reason that they missed the appointment was because unknown . Resources discussed/offered to patient: N/A No show determined to be fault of patient: N/A This is the patients first no show in the last 12 months. Patient was rescheduled for tbd. Letter mailed regular mail AND certified : Yes Is this the Third or Fourth No Show? No Marina Lynne March 05, 2024 11:56 AM [facility]08-26-2024 Miscellaneous Notes* Telephone Encounter - Marina Orantes - 03/05/2024 11:56 AM EDT [employer] No-Show Documentation Luisito shaw showed for an appointment on 03/05/24 with Sruthi Ambrosio APRN. at 8:00 am. The patient was was scheduled for a follow up appointment. I called and spoke with the patient regarding missed appointment. N/A- NO ANSWER/VOICEMAIL FILL The patient stated the reason that they missed the appointment was because unknown . Resources discussed/offered to patient: N/A No show determined to be fault of patient: N/A This is the patients first no show in the last 12 months. Patient was rescheduled for tbd. Letter mailed regular mail AND certified : Yes Is this the Third or Fourth No Show? Luz Lynne March 05, 2024 11:56 AM documented [facility]24 NoteHNO ID: [id number] Author: KINGSTON MCKINNON LSW Service: Care Management Author Type: [employer] Paraprofessional Type: Care Mgt Progress Note Filed: 02/10/2024 17:08 Note Text: CARE MANAGEMENT DISCHARGE NOTE SERVICE DATE: February 10, 2024 SERVICE TIME: 1700 Admission Date: 02/06/2024 LOS: 4 days Discharge Arrangement Discharge Arrangement: Home with Parent, Other: See Comment Services Arranged Medical Services: Other: See Comment Provider Name: [facility] Caregiver Assessment Caregiver is ready, willing and able to meet the patient's needs as recommended by the inter-professional team: Yes Name of Caregiver: Trice Zhong Transportation Arrangements Transportation Arrangements: Car Date of Trip: 02/10/24 Destination: Mother Trice Dotson's home Handoff Communication: Handoff to: Sill Worker Sill Worker Name/Phone: ROSETTE Lobato - [phone] Additional Information: Received transfer of pt this who is also discharged this date Met with pt and his mother Trice Zhong this date . Per pt he has contacted [facility] and they have accepted him to their program. Pt confirms he is to admit there on Tuesday02/13/24 and he will stay with his mother until he can be admitted there. He confirms that they will require his medical information be sent to their agency prior to his admission Contacted [facility] this date and spoke with Itzel in admissions who confirmed clinical that they will need to admit pt , obtained their fax number and clinical they requested faxed to them this date No additional needs noted and pt in agreement with d/c plan and date. No f/u indicated SIGNATURE: WILBER Marks PATIENT NAME: Luisito Zhong DATE: February 10, 2024 TIME: 5:02 PM CONTACT #: [phone] NoteHNO ID: [id number] Author: DULCE MARIA DAN MD Service: Critical Care Author Type: Physician Type: Progress Notes Filed: 02/09/2024 12:08 Note Text: PULMONARY/CRITICAL CARE INTENSIVE MEDICAL/SURGICAL CARE UNIT PROGRESS NOTE Patient Name: Luisito Zhong Account #: Data Unavailable Admission Date: 02/06/2024 Date of Evaluation: 02/07/2024 Time of Evaluation: 10:02 AM SUBJECTIVE Improved, extubated yesterday, on room air today Patient notes lack of insulin supplies at and no place to go to Looking to go to inpatient rehab Insulin adjusted overnight for hyperglycemia VITALS 02/09/24 0814 02/09/24 0900 02/09/24 0950 02/09/24 1000 BP: 129/68 107/61 107/61 Pulse: 74 79 90 90 Resp: 17 16 22 20 Temp: TempSrc: SpO2: 94% 95% 90% 94% Weight: Height: PHYSICAL EXAM Gen: alert and oriented. eating HEENT: Normocephalic, Atraumatic, Pupils Equally Reactive to light and accomodation, moist mucous membranes, Neck: Supple, no rigidity, Trachea is midline, no Lymphadenopathy Lungs: Clear to Auscultation bilaterally , No wheezing, rhonchi or rales Heart: Regular Rate and Rhythm, Normal S1 and S2, no murmurs Abd: Soft, Nontender and nondistended, Positive Bowel Sounds x all four quadrants Ext: No edema, +2 pulses 24 hour Intake AND Output: Intake/Output Summary (Last 24 hours) at 02/09/2024 1205 Last data filed at 02/09/2024 1117 Gross per 24 hour Intake 839 ml Output 1075 ml Net -236 ml INPATIENT MEDICATIONS : Current Facility-Administered Medications Medication Dose Route Frequency NaCl 0.9% iv flush bag 20 mL INTRAVENOUS PRN dextrose 40 % 15 g 15 g ORAL PRN Or glucagon 1 mg injection 1 mg INTRAMUSCULAR PRN Or dextrose 10% iv bolus 12.5 g INTRAVENOUS PRN dextrose 10% iv bolus 12.5-25 g INTRAVENOUS PRN heparin 5,000 Units injection 5,000 Units SUBCUTANEOUS q 12 H ipratropium-albuterol 3 mL nebulizer solution (DUONEB) 3 mL INHALATION QID pantoprazole 40 mg injection (PROTONIX) 40 mg INTRAVENOUS DAILY (6 AM) ondansetron 4 mg tab(s) (ZOFRAN) 4 mg ORAL q 6 H PRN Or ondansetron (PF) 4 mg injection (ZOFRAN) 4 mg INTRAVENOUS q 6 H PRN mupirocin 2 % 0.5 g nasal ointment (BACTROBAN) 0.5 g NASAL BID cefTRIAXone 2 g in D5W 100 mL Vial-Bag (ROCEPHIN) 2 g INTRAVENOUS q 24 H lactulose 20 g CUP 20 g ORAL TID insulin lispro injection (rapid acting) (ADMElog) SUBCUTANEOUS w MEALS insulin lispro injection (rapid acting) (ADMElog) SUBCUTANEOUS AT BEDTIME levothyroxine 175 mcg tab(s) (SYNTHROID) 175 mcg ORAL DAILY (6 AM) naloxone 0.4 mg injection (NARCAN) 0.4 mg INTRAMUSCULAR PRN dicyclomine 10 mg cap(s) (BENTYL) 10 mg ORAL q 6 H PRN insulin glargine 20 Units pen (long acting) 20 Units SUBCUTANEOUS DAILY (8 AM) insulin lispro 3 Units injection (rapid acting) (ADMElog) 3 Units SUBCUTANEOUS DAILY WITH BREAKFAST And insulin lispro 3 Units injection (rapid acting) (ADMElog) 3 Units SUBCUTANEOUS DAILY wDINNER And insulin lispro 5 Units injection (rapid acting) (ADMElog) 5 Units SUBCUTANEOUS DAILY wLUNCH HOME MEDICATIONS: No prescriptions on file. LABORATORY TESTS: CBC: Recent Labs 02/07/2460002/06/242013 WBC 9.77 11.41* HB 11.4* 14.4 HCT 32.7* 43.5 PLT 161 256 MCV 89.6 94.4 RDWCV 14.6 14.8 NEUTP 77.8 72.6 ABSNEUT 7.59* 8.29* LYMPHP 14.4 12.9 MONOP 6.4 11.8 EODINP 0.3 0.2 COAG: Recent Labs 07/30/24 0601 APTT 25.0 INR 1.1 BMP: Recent Labs 02/09/24 0807 02/09/24 0339 02/09/24 0043 02/08/24 19402/08/24 1451 02/08/24 1215 02/08/24 0839 02/08/24 0345 GLUC 292* 324* 263* 172* 220* 286* 173* 176* NA 140 141 141 143 143 142 143 139 K 3.4* 3.8 3.4* 3.5 3.8 4.0 4.0 3.8 CHLOR 106 106 105 107 108* 107 109* 109* CO2 26 28 30 30 26 23 26 23 ANION 8 7 6 6 9 12 8 7 BUN 10 10 10 10 12 12 11 8 CREAT 0.63 0.65 0.66 0.73 0.71 0.72 0.74 0.81 CHEM: Recent Labs 02/09/24 0802/09/24 03302/09/244202/08/24194502/08/24 14502/08/24 1215 02/08/24 0839 02/08/24 0345 02/07/24 1158 02/07/24 0602/07/24 0154 02/07/24 0010 02/06/242013 ALB -- -- -- -- -- -- -- -- -- 2.5* 2.6* -- 3.4 TPROT -- -- -- -- -- -- -- -- -- 5.1* 5.1* -- 6.4 CA 8.4* 8.3* 8.1* 8.5 8.4* 8.5 8.5 7.9* < > 8.3* 8.3* 8.3* 8.3* < > 9.9 MG -- -- -- -- -- -- -- -- -- 1.7 -- -- 2.1 < > = values in this interval not displayed. HEPATIC: Recent Labs 02/07/24 0602/07/24 0154 02/07/24 0010 02/06/242013 ALKPHOS 86 93 -- 129* ALT 19 19 -- 25 AST 25 27 -- 28 TBILI 0.7 0.6 -- 0.8 LIPASE -- -- 15 -- URINALYSIS: Recent Labs 02/07/24 0142 02/07/24 0114 02/06/241 02/06/242050 PH -- 7.26* -- -- SPGR 1.021 -- 1.024 1.024 UGLUC 3+* -- 3+* 3+* UBILI Negative -- Negative Negative UKET 2+* -- 2+* 2+* UHB 2+* -- 1+* 1+* UPROT 1+* -- Negative Negative UWBC 0-5 /HPF -- 0-5 /HPF 0-5 /HPF CARDIAC: Recent Labs 02/06/242013 PBNP 1,001* ASSESSMENT 43 yo M wi (more content not included)...[facility]07-31-[facility]24 NoteHNO ID: [id number] Author: DULCE MARIA DAN MD Service: Critical Care Author Type: Physician Type: Progress Notes Filed: 02/08/2024 14:37 Note Text: PULMONARY/CRITICAL CARE INTENSIVE MEDICAL/SURGICAL CARE UNIT PROGRESS NOTE Patient Name: Luisito Zhong Account #: Data Unavailable Admission Date: 02/06/2024 Date of Evaluation: 02/07/2024 Time of Evaluation: 10:02 AM SUBJECTIVE Improved Infectious studies negative thus far Gap closed Remains encephalopathic on the vent VITALS 02/08/24 1200 02/08/24 1202 02/08/24 1300 02/08/24 1400 BP: 111/58 113/59 113/61 Pulse: 96 96 93 91 Resp: 22 19 18 22 Temp: TempSrc: SpO2: 98% 97% 98% 97% Weight: Height: PHYSICAL EXAM Gen: sedated HEENT: Normocephalic, Atraumatic, Pupils Equally Reactive to light and accomodation, moist mucous membranes, Neck: Supple, no rigidity, Trachea is midline, no Lymphadenopathy Lungs: Clear to Auscultation bilaterally , No wheezing, rhonchi or rales, mechanical breath sounds Heart: Regular Rate and Rhythm, Normal S1 and S2, no murmurs Abd: Soft, Nontender and nondistended, Positive Bowel Sounds x all four quadrants Ext: No edema, +2 pulses 24 hour Intake AND Output: Intake/Output Summary (Last 24 hours) at 02/08/2024 1423 Last data filed at 02/08/2024 1115 Gross per 24 hour Intake 3586 ml Output 1075 ml Net 2511 ml INPATIENT MEDICATIONS : Current Facility-Administered Medications Medication Dose Route Frequency NaCl 0.9% iv flush bag 20 mL INTRAVENOUS PRN dextrose 40 % 15 g 15 g ORAL PRN Or glucagon 1 mg injection 1 mg INTRAMUSCULAR PRN Or dextrose 10% iv bolus 12.5 g INTRAVENOUS PRN dextrose 10% iv bolus 12.5-25 g INTRAVENOUS PRN heparin 5,000 Units injection 5,000 Units SUBCUTANEOUS q 12 H ipratropium-albuterol 3 mL nebulizer solution (DUONEB) 3 mL INHALATION QID pantoprazole 40 mg injection (PROTONIX) 40 mg INTRAVENOUS DAILY (6 AM) ondansetron 4 mg tab(s) (ZOFRAN) 4 mg ORAL q 6 H PRN Or ondansetron (PF) 4 mg injection (ZOFRAN) 4 mg INTRAVENOUS q 6 H PRN fentaNYL 20 mcg/mL iv infusion in NaCl 0.9% 100 mL (SUBLIMAZE) 25-250 mcg/hr INTRAVENOUS CONTINUOUS propofol infusion (DIPRIVAN) 5-60 mcg/kg/min INTRAVENOUS CONTINUOUS mupirocin 2 % 0.5 g nasal ointment (BACTROBAN) 0.5 g NASAL BID levothyroxine 75 mcg tab(s) (SYNTHROID) 75 mcg ORAL DAILY (6 AM) cefTRIAXone 2 g in D5W 100 mL Vial-Bag (ROCEPHIN) 2 g INTRAVENOUS q 24 H lactulose 20 g CUP 20 g ORAL TID dexmedeTOMIDine 400 mcg in NaCl 0.9% 100 mL (PRECEDEX) 0.2-1.5 mcg/kg/hr INTRAVENOUS CONTINUOUS insulin glargine 10 Units pen (long acting) 10 Units SUBCUTANEOUS DAILY (8 AM) insulin lispro injection (rapid acting) (ADMElog) SUBCUTANEOUS q 6 H HOME MEDICATIONS: No prescriptions on file. LABORATORY TESTS: CBC: Recent Labs 02/07/2460002/06/242013 WBC 9.77 11.41* HB 11.4* 14.4 HCT 32.7* 43.5 PLT 161 256 MCV 89.6 94.4 RDWCV 14.6 14.8 NEUTP 77.8 72.6 ABSNEUT 7.59* 8.29* LYMPHP 14.4 12.9 MONOP 6.4 11.8 EODINP 0.3 0.2 COAG: Recent Labs 02/07/24 06 APTT 25.0 INR 1.1 BMP: Recent Labs 02/08/24 1215 02/08/24 0839 02/08/24 0345 02/08/24 0036 02/07/24 1727 02/07/24 1622 02/07/24 1158 02/07/24 0601 GLUC 286* 173* 176* 125* 219* 251* 133* 175* 175* NA 142 143 139 141 139 141 142 138 138 K 4.0 4.0 3.8 3.6 4.2 4.6 4.3 3.5 3.5 CHLOR 107 109* 109* 109* 107 108* 108* 107 107 CO2 23 26 23 27 22 20* 24 19* 19* ANION 12 8 7 5 10 13 10 12 12 BUN 12 11 8 11 12 13 10 12 12 CREAT 0.72 0.74 0.81 0.87 0.89 0.88 0.91 0.89 0.89 CHEM: Recent Labs 02/08/24 1215 02/08/24 0839 02/08/24 0345 02/08/24 0036 02/07/24 1727 02/07/24 1622 02/07/24 1158 02/07/24 0601 02/07/24 0154 02/07/24 0010 02/06/242013 ALB -- -- -- -- -- -- -- 2.5* 2.6* -- 3.4 TPROT -- -- -- -- -- -- -- 5.1* 5.1* -- 6.4 CA 8.5 8.5 7.9* 8.0* 8.0* 8.3* 9.1 8.3* 8.3* 8.3* 8.3* < > 9.9 MG -- -- -- -- -- -- -- 1.7 -- -- 2.1 < > = values in this interval not displayed. 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 Imaging suggests (more content not included)...[facility]07-31-2024 NoteHNO ID: [id number] Author: ANSELMO COOPER LSW Service: Care Management Author Type: Innovations Paraprofessional Type: Care Mgt Progress Note Filed: 02/08/2024 09:11 Note Text: SOCIAL WORK PROGRESS NOTE SERVICE DATE: 02/08/2024 SERVICE TIME: 9:07 AM Chart reviewed. Patient admitted to ICU for DKA, IDDM1, cocaine abuse, aspiration PNA, severe hypophosphatemia, possible spsis, acute respiratory failure. Patient intubated on vent, insulin gtt off, propofol gtt, fentanyl gtt, failed SBT yesterday, IVF, IVAB, NPO, +reflexes, BS checks, wound care c/s. Patient homeless, independent with ADLs and IADLs prior to admission, long history of crack cocaine use (22 years, multiple drug rehab admissions), does not drive, uses no DME, follows with PCP and portfolio manager, recent heart surgery and follows with detective homicide squad, +insurance, mother and father involved in life at a distance due to extensive drug use. Discharge plan TBD - will depend on patient medical needs once liberated from vent. Mother Trice reports patient was attempting to go into rehab prior to admission (was at [facility] getting clearance and wanting to be admitted to detox unit but is no longer allowed at facility due to past behaviors). Will assist with drug treatment if patient still willing. Continue to follow. SIGNATURE: WILBER Gonzalez PATIENT NAME: Luisito Zhong DATE: February 08, 2024 TIME: 9:07 [facility]07-30-2024 NoteHNO ID: [id number] Author: ANSELMO COOPER LSW Service: Care Management Author Type: Innovations Paraprofessional Type: Care Mgt Initial Assessment Filed: 02/07/2024 15:03 Note Text: CARE MANAGEMENT: ASSESSMENT AND DISCHARGE PLAN SERVICE DATE: February 07, 2024 SERVICE TIME: 2:23 PM PCP: No primary care provider on file. Primary Contact: Extended Emergency Contact Information Primary Emergency Contact: Trice Zhong Mobile Relation: Mother Secondary Emergency Contact: Luisito Zhong Mobile Relation: Father Admission Status: Inpatient Insurance Provider: [employer] [place] OF [place] Discharge Planning requested by: Per Department Practice Potential Transition Plans To Be Determined Advance Directives Current Advance Directive: None Concession Attendant Attempted to Assist with AD Completion: No Unable to Assist Due To:: Delirium;Sedation Current Living Arrangements and Support Lives with: Alone Type of Residence: Homeless Does the patient have to climb stairs at home?: No Support: Family members, Parent How do you manage to accomplish the following: Independent: Ambulation;Bathe/Shower;Dress;Meals/Meal Prep;Going to the bathroom;Medication Management Dependent: Transportation to appointments/community Current Services/Equipment Current Post-Acute Service(s): None Discharge Planning Patient Goal(s): General wellness [place] of Choice Explained: [place] of Choice Given: No Reason Not Given: Unable to complete with this assessment - revisit;No placements necessary Are you interested in bedside delivery of your medications? No Discharge Planning Participant(s): Parents Patient/Family Comments: He needs drug rehab Caregiver Assessment: Caregiver is ready, willing and able to meet the patient's needs as recommended by the inter-professional team: No Intimate Partner Violence We have begun to talk to patients about safe and healthy relationships because it can have a large impact on your health. Do you feel safe around your partner or ex-partner?: Patient declined Food Insecurity Within the past 12 months, you worried that your food would run out before you got the money to buy more.: Patient unable to answer Within the past 12 months, the food you bought just didn't last and you didn't have money to get more.: Patient unable to answer Transportation Needs In the past 12 months, has lack of transportation kept you from medical appointments or from getting medications?: No In the past 12 months, has lack of transportation kept you from meetings, work, or from getting things needed for daily living?: No Housing Stability In the last 12 months, was there a time when you were not able to pay the mortgage or rent on time?: Yes In the last 12 months, how many places have you lived?: 5 In the last 12 months, was there a time when you did not have a steady place to sleep or slept in a mcfp (including now)?: Yes Utilities In the past 12 months has the [employer], gas, oil, or water [employer] threatened to shut off services in your home?: Patient unable to answer Social Information Financial Resources: Unemployed Transport at Discharge: Transportation Arrangements: To Be Determined Needs Prior to Discharge: Needs Prior to Discharge: To Be Determined;Discharge Transportation Reason for Admission: DKA, type 1, not at goal (HCC) [E10.10] Reason for Social Work Contact: Homelessness and Substance Abuse Time Spent (minutes): 30 Information Obtained From: Family Mom Trice Patient Granted Permission to Speak to Others in the Room: Not Applicable, intubated on vent SOCIAL HISTORY Marital Status: Single Children (Including Quality of Relationship): Patient Does Not Have Children Sexual Orientation: Heterosexual Gender Identity: Male Abuse History: Unknown Education History: High School Support System: Family: mother, father, 2 sisters Friend(s) Limited Support System Status (Including History of Combat Experience): None Legal History: multiple arrests but nothing extensive Sikhism/Spirituality: Unknown Do Special Considerations/Accommodations Need to be Made? No Are There Practices or Beliefs That May Affect or Influence Care? No, Patient/Supervisor Insulation Denies Patient Strengths/Protective Factors: Seeking Treatment Actively looking for sober living PSYCHIATRIC HISTORY: No Known Psychiatric Illness Family Psychiatric History No Known Psychiatric Illness Homicide/Suicide Risk None Substance Use and Treatment History: Alcohol Cocaine Crack Cocaine Offered Patient Resources: unable to at this time due to medical needs DISCHARGE RECOMMENDATIONS: Homeless Penitentiary, Medical Follow-Up, Residential Treatment, Substance Use IOP/PHP, and Unknown Patient/Supervisor Insulation Agreeable With Discharge Recommendations At This Time? Discussed with mother but will need to discuss with patient as able OB (more content not included)...[facility]07-30-2024 NoteHNO ID: [id number] Author: DULCE MARIA DAN MD Service: Critical Care Author Type: Physician Type: Progress Notes Filed: 02/07/2024 11:49 Note Text: PULMONARY/CRITICAL CARE INTENSIVE MEDICAL/SURGICAL CARE UNIT PROGRESS NOTE Patient Name: Luisito Zhong Account #: Data Unavailable Admission Date: 02/06/2024 Date of Evaluation: 02/07/2024 Time of Evaluation: 10:02 AM SUBJECTIVE Improved Infectious studies negative thus far Gap closed Remains encephalopathic on the vent VITALS 02/07/24 0614 02/07/24 0617 02/07/24 0630 02/07/24 0837 BP: 98/57 103/59 Pulse: 78 76 77 78 Resp: 26 14 14 14 Temp: TempSrc: SpO2: 100% 100% 98% 99% Weight: Height: PHYSICAL EXAM Gen: sedated HEENT: Normocephalic, Atraumatic, Pupils Equally Reactive to light and accomodation, moist mucous membranes, Neck: Supple, no rigidity, Trachea is midline, no Lymphadenopathy Lungs: Clear to Auscultation bilaterally , No wheezing, rhonchi or rales, mechanical breath sounds Heart: Regular Rate and Rhythm, Normal S1 and S2, no murmurs Abd: Soft, Nontender and nondistended, Positive Bowel Sounds x all four quadrants Ext: No edema, +2 pulses 24 hour Intake AND Output: Intake/Output Summary (Last 24 hours) at 02/07/2024 1002 Last data filed at 02/07/2024 0600 Gross per 24 hour Intake 7476.62 ml Output 775 ml Net 6701.62 ml INPATIENT MEDICATIONS : Current Facility-Administered Medications Medication Dose Route Frequency NaCl 0.9% iv flush bag 20 mL INTRAVENOUS PRN dextrose 40 % 15 g 15 g ORAL PRN Or glucagon 1 mg injection 1 mg INTRAMUSCULAR PRN Or dextrose 10% iv bolus 12.5 g INTRAVENOUS PRN dextrose 5% in LR infusion (D5-LR) 150 mL/hr INTRAVENOUS CONTINUOUS insulin regular 100 units in NaCl 0.9% 100 mL - DKA NOMOGRAM 0.5-30 Units/hr INTRAVENOUS CONTINUOUS insulin regular human 2-10 Units bolus from bag 2-10 Units INTRAVENOUS PRN dextrose 10% iv bolus 12.5-25 g INTRAVENOUS PRN heparin 5,000 Units injection 5,000 Units SUBCUTANEOUS q 12 H ipratropium-albuterol 3 mL nebulizer solution (DUONEB) 3 mL INHALATION QID pantoprazole 40 mg injection (PROTONIX) 40 mg INTRAVENOUS DAILY (6 AM) ondansetron 4 mg tab(s) (ZOFRAN) 4 mg ORAL q 6 H PRN Or ondansetron (PF) 4 mg injection (ZOFRAN) 4 mg INTRAVENOUS q 6 H PRN azithromycin 500 mg in D5W 250 mL Vial-Bag (ZITHROMAX) 500 mg INTRAVENOUS q 24 HR piperacillin-tazobactam iv piggyback 3.375 g in dextrose (iso-osmotic) 50 mL (ZOSYN) 3.375 g INTRAVENOUS q 6 H lactated ringers iv infusion 150 mL/hr INTRAVENOUS CONTINUOUS fentaNYL 20 mcg/mL iv infusion in NaCl 0.9% 100 mL (SUBLIMAZE) 25-250 mcg/hr INTRAVENOUS CONTINUOUS propofol infusion (DIPRIVAN) 5-60 mcg/kg/min INTRAVENOUS CONTINUOUS sodium bicarbonate 1 mEq/mL (8.4 %) 50 mEq injection 50 mEq INTRAVENOUS ONCE sodium bicarbonate 1 mEq/mL (8.4 %) 50 mEq injection 50 mEq INTRAVENOUS ONCE mupirocin 2 % 0.5 g nasal ointment (BACTROBAN) 0.5 g NASAL BID potassium phosphate 45 mmol in NaCl 0.9% 500 mL 45 mmol INTRAVENOUS ONCE magnesium sulfate iv piggyback in sterile water 2 g 50 mL 2 g INTRAVENOUS ONCE [START ON 02/08/2024] levothyroxine 75 mcg tab(s) (SYNTHROID) 75 mcg ORAL DAILY (6 AM) HOME MEDICATIONS: No prescriptions on file. LABORATORY TESTS: CBC: Recent Labs 02/07/2401 02/06/242013 WBC 9.77 11.41* HB 11.4* 14.4 HCT 32.7* 43.5 PLT 161 256 MCV 89.6 94.4 RDWCV 14.6 14.8 NEUTP 77.8 72.6 ABSNEUT 7.59* 8.29* LYMPHP 14.4 12.9 MONOP 6.4 11.8 EODINP 0.3 0.2 COAG: Recent Labs 02/07/24600 APTT 25.0 INR 1.1 BMP: Recent Labs 02/07/24 0602/07/24 0154 02/07/24 0010 02/06/242013 GLUC 175* 175* 340* 340* 447* 556* NA 138 138 136 136 133* 129* K 3.5 3.5 3.8 3.8 -- 6.0* CHLOR 107 107 104 104 101 97* CO2 19* 19* 11* 11* 3* 5* ANION 12 12 21* 21* 29* 27* BUN 12 12 14 14 12 14 CREAT 0.89 0.89 1.03 1.03 1.12 1.10 CHEM: Recent Labs 02/07/24 0602/07/24 01502/07/24902/06/242013 ALB 2.5* 2.6* -- 3.4 TPROT 5.1* 5.1* -- 6.4 CA 8.3* 8.3* 8.3* 8.3* 8.6 9.9 MG 1.7 -- -- 2.1 HEPATIC: Recent Labs 02/07/2460002/07/2415302/07/24902/06/242013 ALKPHOS 86 93 -- 129* ALT 19 19 -- 25 AST 25 27 -- 28 TBILI 0.7 0.6 -- 0.8 LIPASE -- -- 15 -- URINALYSIS: Recent Labs 02/07/24 0142 02/07/24 01102/06/24223002/06/242050 PH -- 7.26* -- -- SPGR 1.021 -- 1.024 1.024 UGLUC 3+* -- 3+* 3+* UBILI Negative -- Negative Negative UKET 2+* -- 2+* 2+* UHB 2+* -- 1+* 1+* UPROT 1+* -- Negative Negative UWBC 0-5 /HPF -- 0-5 /HPF 0-5 /HPF CARDIAC: Recent Labs 02/06/242013 PBNP 1,001* ASSESSMENT 43 yo M with DKA related to IDDM1, on insulin pump Cocaine abuse Acute respiratory failure with hypoxemia - intubated 02/06/2024 Aspiration pneumonia Lactic acidosis Severe hypophosphatemia Possible sepsis Elevated TSH (more content not included)...[facility]07-26-[facility]24 History of Present illness Narrative* Bonilla Pollock MD - 02/03/2024 3:43 PM EDT Luisito Zhong is a 43 year old male who presents with Medication Problem (Pt states that he was [facility]. Pt states that he is in addiction and he cannot be placed until he has 30 days of his diabetic medication. ) 43-year-old male presents to acquire a 30-day refill on his medications. Patient is a type I diabetic he states that he missed his endocrinology appointment on Tuesday. Patient states that he needs togo to rehab but secondary to drug addiction however he could not get into rehab unless he has 30-day supply of his medications. He states that he needs a 30-day supply of Tresiba, levothyroxine and arefill on his Dexcom 6 sensor and transmitter. He states that he has the rest of his medications. He states that he will reschedule a follow-up appointment with his portfolio manager. Patient has no other complaints. He only requested refills on the following medications. 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 Has been clean since 06/21/2018. Went to treatment at [facility] for 9 months Mitral regurgitation Murmur Rotator cuff syndrome 06/18/2015 Subaortic membrane with stenosis Tetrahydrocannabinol (THC) use disorder, mild, in sustained remission, in controlled environment, abuse Type 1 diabetes mellitus with diabetic polyneuropathy (HCC) ACTIVE PROBLEM LIST Impingement Syndrome of Right Shoulder Type 1 Diabetes Mellitus With Diabetic Polyneuropathy (Hcc) Acquired Hypothyroidism Former Smoker Subaortic Membrane Mitral Regurgitation Alcohol Abuse History of Drug Abuse (Hcc) Anxiety and Depression Dyspnea Dyslipidemia Obesity (Bmi 30-39.9) Discharge Planning Issues Pre-Op Testing Atelectasis Post-Op Pain Sob (Shortness of Breath) Tricuspid Regurgitation Aortic Regurgitation Obesity, Class II, Bmi 35-39.9 Hypervolemia Encounter for Support and Coordination of Transition of Care Nicotine use disorder, F17.2 History of Asthma History of Cocaine Use Hld (Hyperlipidemia) Hypoglycemia Chronic Right Shoulder Pain Pain in Joint, Shoulder Region Substance Abuse (Hcc) Vitamin D Deficiency Current Outpatient Medications Medication Sig Dispense Refill rosuvastatin (CRESTOR) 10 mg tablet Take 1 tablet by mouth daily at bedtime. 90 tablet 3 cholecalciferol (VITAMIN D-3) 50 mcg (2,000 unit) tablet Take 1 tablet by mouth once daily. 90 tablet 3 umeclidinium-vilanterol (ANORO ELLIPTA) 62.5-25 mcg/actuation inhaler Inhale 1 Inhalation as instructed once daily. 180 Each 3 DULoxetine (CYMBALTA) 30 mg capsule Take 1 capsule by mouth once daily. 90 capsule 3 escitalopram oxalate (LEXAPRO) 20 mg tablet Take 1 tablet by mouth once daily. 90 tablet 3 insulin lispro (HUMALOG U-100 INSULIN) 100 unit/mL injection Inject up to 90 units per day via insulin pump. 90 mL 1 Blood-Glucose Sensor (DEXCOM G6 SENSOR) xenia Apply new sensor every ten (10) days to abdomen. 9 Each 3 Blood-Glucose Meter,Continuous (DEXCOM G6 FOOTWEAR MACHINERY INSTRUCTOR) [facility] [place] to check blood sugar at least four (4)times daily. 1 Each 0 Blood-Glucose Sensor (DEXCOM G6 SENSOR) xenia APPLY AND REPLACE SENSOR TOPICALLY EVERY 10 DAYS 3 Each 0 Blood-Glucose Transmitter (DEXCOM G6 TRANSMITTER) xenia Apply new transmitter every 90 days. Clean transmitter with an alcohol swab with each sensor change. 1 Each 0 levothyroxine (SYNTHROID) 175 mcg tablet Take 1 tablet by mouth daily before breakfast. 30 tablet 0 TRESIBA FLEXTOUCH U-100 100 unit/mL (3 mL) injection pen INJECT 40 UNITS SUBCUTANEOUSLY ONCE DAILY 9 mL 0 blood sugar diagnostic (ONETOUCH ULTRA TEST) test strip TEST UP TO 7 TIMES DAILY BEFORE MEALS AND AT BEDTIME PLUS NEEDED FOR SYMPTOMS (Patient not taking: Reported on 02/03/2024) 600 Each 0 Blood-Glucose Transmitter (DEXCOM G6 TRANSMITTER) xenia 1 Each once daily. (Patient not taking: Reported on 02/03/2024) 1 Each 0 Blood-Glucose Meter,Continuous (DEXCOM G7 FOOTWEAR MACHINERY INSTRUCTOR) misc 1 Each five times a day. (Patient not taking: Reported on 02/03/2024) 1 Each 0 OMNIPOD 5 G6 PODS, GEN 5, crtg Change pod every 48 hours. (Patient not taking: Reported on 02/03/2024) 45 Each 3 Insulin Syringe-Needle U-100 (BD INSULIN SYRINGE ULTRA-FINE) 0.5 mL 31 gauge x 5/16 Inject 1 Each subcutaneously three times daily. Use 3 times daily with Humalog injections. Diagnosis E10.65 PATIENT IS OFF OF INSULIN PUMP AND NOW USING BASAL/BOLUS INSULIN AGAIN (Patient not taking: Reported on 02/03/2024) 300 Each 3 acetaminophen (TYLENOL) 500 mg tablet 1,000 mg. (Patient not taking: Reported on 02/03/2024) aspirin, enteric coated (ASPIRIN, ENTERIC COATED) 81 mg EC tablet Take 81 mg by mouth q 24 HR. (Patient not taking: Reported on 02/03/2024) Insulin [place], Disposable, (BD ULTRAFINE III MINI PEN) 31 gauge x 3/16 USE WITH INSULIN PENS ONCE DAILY diagnosis E10.65 PATIENT IS OFF OF INSULIN PUMP AND NOW USING BASAL/BOLUS INSULIN AGAIN (Patient not taking: Reported on 02/03/2024) 100 Each 3 ibuprofen (MOTRIN) 800 mg tablet Take 1 tablet by mouth every 8 hours as needed for pain or fever (specify). (Patient not taking: Reported on 02/03/2024) 30 tablet 0 fluticasone (FLONASE) 50 mcg/actuation nasal spray Use 1 [place] in the nose once daily as needed. (Patient not taking: Reported on 02/03/2024) ALLERGY RELIEF, LORATADINE, 10 mg tablet Take 10 mg by mouth once daily. (Patient not taking: Reported on 02/03/2024) No current facility-administered medications for this visit. Social History Tobacco Use Smoking status: Every Day Packs/day: 0.50 Years: 25.00 Additional pack years: 0.00 Total pack years: 12.50 Types: Cigarettes Last attempt to quit: 11/2021 Years since quittin.2 Smokeless tobacco: Never Tobacco comments: nicotine lozenges daily Vaping Use Vaping Use: Former Substances: Nicotine, Flavoring Devices: Disposable Substance Use Topics Alcohol use: Not Currently Drug use: Yes Types: Crack Cocaine Comment: used last last night. Alcohol Use: Not Currently Tobacco Use: 0.5 packs/day, for 25 years. Last attempt to quit 11/08/2021. Types: Cigarettes FAMILY HISTORY Problem Relation Age of Onset No Known Problems Mother No Known Problems Father No Known Problems Sister No Known Problems Sister Cancer Maternal Grandmother Heart Attack Paternal Grandfather Review of Systems Constitutional: Negative for fever. Eyes: Negative for blurred vision. Respiratory: Negative for shortness of breath. Cardiovascular: Negative for chest pain. Gastrointestinal: Negative for abdominal pain. Neurological: Negative for dizziness and headaches. BP 117/68 Pulse 90 Temp (Src) 98.1 (Temporal) Resp 14 Ht 6' 4 (1.93m) Wt 200 lb (90.7kg) SpO2 97% BMI 24.35 kg/(m^2). Physical Exam Vitals and nursing note reviewed. Constitutional: Comments: PHYSICAL EXAMINATION: GENERAL:The patient is alert oriented in no acute distress. HEAD: Head is atraumatic normocephalic. EYES:Pupils equal round and reactive to light and accommodation. Extraocular muscles are intact bilaterally. Normal sclerae and conjunctivae. No nystagmus. MOUTH: Oropharynx unremarkable. NECK: No stridor. No trismus. No hoarseness. Normal phonation. LUNGS: No labored breathing. Lungs clear to auscultation. HEART: Regular rate and rhythm. MUSCULOSKELETAL: Moves all extremities. SKIN: Warm and dry no clubbing cyanosis or edema. NEUROLOGY: Cranial nerves II through XII grossly intact without any focal neurological deficits. Normal speech. Normal ambulation and able to walk in a straight line. PSYCHIATRY: Cooperative. Normal mood and affect. Dexcom sensory and transmitter refilled. Levothyroxine and receive a refill. The patient instructedto make a follow-up appointment with his portfolio manager. ASSESSMENT/PLAN: 1. Medication refill - ICD9: V68.1, ICD10: Z76.0 (primary diagnosis) - TRESIBA FLEXTOUCH U-100 INSULIN 100 UNIT/ML (3 ML) SUBCUTANEOUS PEN 2. Type 1 diabetes mellitus with diabetic polyneuropathy (HCC) - ICD9: 250.61, 357.2, ICD10: E10.42 - DEXCOM G6 SENSOR DEVICE - DEXCOM G6 TRANSMITTER DEVICE - TRESIBA FLEXTOUCH U-100 INSULIN 100 UNIT/ML (3 ML) SUBCUTANEOUS PEN 3. Acquired hypothyroidism - ICD9: 244.9, ICD10: E03.9 - LEVOTHYROXINE 175 MCG TABLET [facility] Pollock [facility]* Patient Instructions* Bonilla Pollock MD - 02/03/2024 3:42 PM EDT Make a follow-up appointment with portfolio manager [facility] Hospital Discharge instructions Patient Education 02/01/2024 18:33:01 Cocaine And Crack Abuse Cocaine and Crack Abuse Cocaine is typically snorted or injected intravenously (IV). Crack is made from cocaine. It can be smoked, causing a more potent effect. Cocaine causes a very powerful psychological and physiologicaldependence. Once you have a dependence, you will do just about anything to get the drug and recreate the feeling it produces. This can increase your risk for any of the following: Overdose that may lead to Loss of your job, your home, your family Accidental injuries to yourself or others while you are under the influence of the drug (in a car or at home) Arrest, conviction, and mcc sentence for possession of an illegal substance or for driving under the influence Medically, cocaine can affect every organ in your body. It can cause: Chest pain, arrhythmia (abnormal heart beating), heart attack, heart failure Severe headache, seizures, loss of consciousness, stroke Anxiety, psychosis, confusion, paranoia, hallucinations Nasal damage (from snorting) Nausea, abdominal pain, loss of appetite Chronic bronchitis (from smoking), shortness of breath It can place you at higher risk of HIV infection, Hepatitis B or C, heart infection (from IV use and/or risky sexual behavior while intoxicated) Kidney failure Home care The following suggestions will help you care for yourself at home: Admit you have a drug problem. Ask for help from your family and close friends. Seek psychotherapy or counseling if depression or anxiety is a problem for you. Join a self-help group for drug abuse. Avoid friends who abuse drugs themselves or tempt you to continue abusing the drug. Eat a balanced diet and begin a regular exercise program. If you continue to use IV cocaine, decrease your risk of receiving or spreading infection by: Only using sterile equipment Do not reuse or share equipment Clean the skin before injecting Follow-up care Follow up with your doctor, or as advised. Contact one of the resources below for help: National [employer] [place] on Alcoholism and Drug Dependence 133-556-MXAO www.ncadd.org Narcotics Anonymous www.na.org National Alcohol and Substance Abuse Information Center (can tell you about the drug treatment programs in your area) 421.314.9666 www.addictioncareCommercialTribe.HOMETRAX Call 911 Call 911 if any of these occur: Seizure Hard time breathing or slow, irregular breathing Chest pain Sudden weakness on one side of your body or sudden trouble speaking Very drowsy or trouble awakening Rapid heart rate When to seek medical advice Call your healthcare provider right away if any of these occur: Agitation, anxiety, unable to sleep Unintended weight loss (more than 10 to 15 pounds over 6 months) Hallucination, severe depression, thoughts of harming yourself or another Fever of 100.4 F (38 C) or higher, or as directed by your health care provider Redness, pain, or swelling at an injection site Loss of vision or decreased vision [phone] The [employer]. [address] [place] [address]. All rights reserved. This information is not intended as a substitute for professional medical care. Always follow yourhealthcare professional's instructions. Follow Up Care 02/01/2024 12:55:23 With:[facility] Emergency Department, [facility] Address: [address] [place] [address]- When: Unknown [facility] 07-24-2024 Emergency department Discharge summary Discharge Instructions Thank you for allowing [facility] to assist you with your healthcare needs. The following is importantdischarge information regarding your hospital visit. Diagnosis from Today's Visit Crack cocaine misuse Diabetes mellitus Troponin I above reference range What to Do Next Instructions from Your Care Team - Present [facility] to [facility] emergency department, through which he will then enter [place]. No qualifying data available. Post Acute Orders No qualifying data available. You Need to Schedule the Following Appointments [facility]:[address] [place] [address]- Allergies Dilaudid traMADol Medications Please ask your primary doctor or pharmacist before taking any other medication not listed, including over the counter drugs, herbal medications, vitamins and or supplements as they may interact withyour home medications. What How Much When Instructions Last Dose New DME (Dexcom G7 Sensor) See instructions Refills: [address] once sensor to the back of the upper arm every 10 days. Use reader or phone efe for daily blood sugar checks. 1 month supply. Printed Prescription Unchanged acetaminophen (acetaminophen 500 mg oral tablet) 2 tab(s) by mouth Every 6 hours as needed for as needed for pain Unchanged DULoxetine (DULoxetine 30 mg oral delayed release capsule) 1 cap by mouth Once a day Unchanged escitalopram (escitalopram 20 mg oral tablet) 1 tab(s) by mouth Once a day Unchanged fluticasone nasal (fluticasone proprionate NASAL 50 mcg/ spray) 1 spray(s) each nostril Once a day Unchanged ibuprofen (ibuprofen 800 mg oral tablet) 1 tab(s) by mouth Every 6 hours as needed for as needed for pain Unchanged insulin lispro (HumaLOG) (HumaLOG 100 units/ mL injectable solution VIAL) Sliding Scale Subcutaneous Four (4) times daily-before meals and at bedtime 125 units daily via insulin pump Unchanged levothyroxine (levothyroxine 150 mcg (0.15 mg) oral tablet) 1 tab(s) by mouth Once a day Unchanged rosuvastatin (Crestor 5 mg oral tablet) 1 tab(s) by mouth Once a day Please take this list to your next doctor s visit. Bring all medications you take, including over the counter medications, herbals and other supplements with you to your doctor s visit. Patients and families are reminded to discard old lists and to update any records with all medication providers or retail pharmacies. Education Materials Cocaine and Crack Abuse Cocaine is typically snorted or injected intravenously (IV). Crack is made from cocaine. It can be smoked, causing a more potent effect. Cocaine causes a very powerful psychological and physiologicaldependence. Once you have a dependence, you will do just about anything to get the drug and recreate the feeling it produces. This can increase your risk for any of the following: Overdose that may lead to Loss of your job, your home, your family Accidental injuries to yourself or others while you are under the influence of the drug (in a car or at home) Arrest, conviction, and mcc sentence for possession of an illegal substance or for driving under the influence Medically, cocaine can affect every organ in your body. It can cause: Chest pain, arrhythmia (abnormal heart beating), heart attack, heart failure Severe headache, seizures, loss of consciousness, stroke Anxiety, psychosis, confusion, paranoia, hallucinations Nasal damage (from snorting) Nausea, abdominal pain, loss of appetite Chronic bronchitis (from smoking), shortness of breath It can place you at higher risk of HIV infection, Hepatitis B or C, heart infection (from IV use and/or risky sexual behavior while intoxicated) Kidney failure Home care The following suggestions will help you care for yourself at home: Admit you have a drug problem. Ask for help from your family and close friends. Seek psychotherapy or counseling if depression or anxiety is a problem for you. Join a self-help group for drug abuse. Avoid friends who abuse drugs themselves or tempt you to continue abusing the drug. Eat a balanced diet and begin a regular exercise program. If you continue to use IV cocaine, decrease your risk of receiving or spreading infection by: Only using sterile equipment Do not reuse or share equipment Clean the skin before injecting Follow-up care Follow up with your doctor, or as advised. Contact one of the resources below for help: National [employer] [place] on Alcoholism and Drug Dependence 776-194-FCIQ www.ncadd.org Narcotics Anonymous www.na.org National Alcohol and Substance Abuse Information Center (can tell you about the drug treatment programs in your area) 193.277.5863 www.addictioncareoptions.com Call 911 Call 911 if any of these occur: Seizure Hard time breathing or slow, irregular breathing Chest pain Sudden weakness on one side of your body or sudden trouble speaking Very drowsy or trouble awakening Rapid heart rate When to seek medical advice Call your healthcare provider right away if any of these occur: Agitation, anxiety, unable to sleep Unintended weight loss (more than 10 to 15 pounds over 6 months) Hallucination, severe depression, thoughts of harming yourself or another Fever of 100.4 F (38 C) or higher, or as directed by your health care provider Redness, pain, or swelling at an injection site Loss of vision or decreased vision [phone] The [employer]. [address] [place] [address], [place] [address]. All rights reserved. This information is not intended as a substitute for professional medical care. Always follow yourhealthcare professional's instructions. Additional Information VACCINATE! IT SAVES LIVES! Members of the community who have not yet received the COVID-19 vaccine and would like to receive it can visit one of [facility] vaccine clinics. There are many vaccine clinic locations within the [facility]. For locations and available times, please visit www.gettheshot.coronavirus.[place].gov/. It is important to note that some COVID mobile vaccine clinics are held outdoors and may be canceled in rainy or stormy conditions. To learn more about pediatric vaccinations (ages 5-11), we invite you to visit the [facility] webpage. [email or web address] learn more about the COVID-19 vaccine, we invite you to visit the CDC website for a list of frequently asked questions. https://www.cdc.gov/coronavirus/2019-ncov/vaccines/faq.html [facility] [employer] Patient Portal Access Instructions: Stay connected with your healthcare team and access your personal medical information anytime with the [facility] Patient Portal. If you would like a full copy of your medical records please contact the [facility] Medical Records Department Tuesday through Tuesday between 8a.m. and 4:30p.m. Please follow the directions below to access the portal: 1.Access the email account you provided upon registration to the hospital.2.Look for an invitation email from [facility].3.Open the email and access the invitation link: Accept Invitation to [facility].Fill in the required sy to create your account. Sign into [email or web address] with your username and password that you created in the above steps to stay up to date. You can then view a summary of results, a summary of your visits, and the ability to download your summaries to your computer or send the information securely to a physician. Remember that your healthcare information is confidential, so carefully consider who you will allow to register on the [employer] Patient Portal for access to your information. You can also access the [employer] Patient Portal on the [employer] efe. Simply click on Health Records under bSafe and then click on the [employer] logo. HOW TO SAFELY DISPOSE OF PRESCRIPTION MEDICATIONS Please use one of the following methods to safely dispose of your unused medications. 1.Use a drug disposal kit: the drug disposal pouch allows you to safely discard your old and unuseddrugs. Ask your nurse to give you one when you are discharged.2.Visit a local take-back location: Many local pharmacies and police departments have programs that collect old and unwanted prescriptiondrugs. Call your local pharmacy or go to [email or web address] to find one close to you.3.Make use of household items: Use cat litter or old coffee grounds to dispose medications if other options arenot available. Mix your drugs with these household products, seal them in an airtight container andthrow it into the garbage. Call [facility]: [phone] to be sure your drugs can be disposed of in this way. Some medicines may require a different approach.4.Never flush your medications down the toilet. IF YOU HAVE BEEN PRESCRIBED AN OPIOIDS FOR PAIN If you have been prescribed an opioid (such as hydrocodone, oxycodone or morphine), it is critical to understand the possible side effects and risks of opioid pain medications. Even when taken as directed, opioids can have several side effects including: Tolerance, meaning you might need to take more of a medication for the same pain relief. Nausea, vomiting and/or constipation. Sleepiness, dizziness, dry mouth, confusion, depression or itching. Physical dependence, meaning you have withdrawal symptoms when a medication is stopped ? this can develop within a few days. KNOW YOUR RESPONSIBILITIES It is important to know exactly how much and how often to take the opioid pain medications you are prescribed. Never take opioids in higher amounts or more often than prescribed. Do not combine opioids with alcohol or other drugs that cause drowsiness, such as benzodiazepines, also known as benzos,including diazepam and alprazolam, muscle relaxants or sleep aids. Never sell or share prescriptionopioids. This is illegal. Store opioids in a secure place and out of reach of others (including children, family, friends and visitors). The last page(s) of this document has been signed and retained as a CHART COPY Signatures Patient Education Materials Cocaine And Crack Abuse Medication Leaflets My discharge plan and instructions have been reviewed and explained to me and I,LUISITO ZHONG understand my current condition and have read and understand these discharge instructions. I have received a written copy of the plan/instructions. If I have questions, I am aware that I should contact my doctor. Patient/Supervisor Insulation Signature: Date/Time: Relationship to Patient: Witness Name/Signature: Date[id number] NoteSINUS RHYTHM LEFT ATRIAL ENLARGEMENT Electronic Signature: MIQUEL BURNETT MD 02/01/2024 17:06:50[facility] 07[facility]18[facility] Telephone encounter Note* Telephone Encounter - Liza KramerDEMOND - 01/26/2024 4:21 PM EDT Patient called in stating his insulin pump quit working and he needs insulin to cover him until is endo appt. He he said he is establishing with Dr. Desai at [place] on 03/02/2024. Pt states his current weight is 230 lb. After chart review, patient was ordered Tresiba Flextouch 100 Unit INJ on 01/13/2024 by Dwayne Araujo CNP who's specialty is Endocrinology. Sruthi notified of the above information. Per Sruthi, she is not refilling insulin, patient is seeinga SENIOR TECHNICAL ARCHITECT from Endocrinology who is Dwayne Araujo. I called [facility] [phone], spoke to the pharmacist who confirmed Tresiba ordered on 01/13/2024 by Dwayne Araujo CNP was picked up on 01/14/2024 @ 1820. I thanked him for the information and call ended. I returned patient's call letting him know he needs to contact Dwayne Araujo CNP for any additionalinsulin orders. I also let patient know I confirmed with [facility] pharmacy Tresiba was picked up on 01/14/2024 and it was not accidentally filled because of his (pt's) shaky hand. Patient did not sound pleased with my response, he said ok, and call ended. Liza Kramer LPN January 26, 2024 5:13 PM [facility]07-18-2024 Miscellaneous Notes* Telephone Encounter - Liza Kramer LPN - 01/26/2024 4:21 PM EDT Patient called in stating his insulin pump quit working and he needs insulin to cover him until is endo appt. He he said he is establishing with Dr. Desai at [place] on 03/02/2024. Pt states his current weight is 230 lb. After chart review, patient was ordered Tresiba Flextouch 100 Unit INJ on 01/13/2024 by Dwayne Araujo CNP who's specialty is Endocrinology. Sruthi notified of the above information. Per Sruthi, she is not refilling insulin, patient is seeinga SENIOR TECHNICAL ARCHITECT from Endocrinology who is Dwayne Araujo. I called [facility] [phone], spoke to the pharmacist who confirmed Tresiba ordered on 01/13/2024 by Dwayne Araujo CNP was picked up on 01/14/2024 @ 1820. I thanked him for the information and call ended. I returned patient's call letting him know he needs to contact Dwayne Araujo CNP for any additionalinsulin orders. I also let patient know I confirmed with [facility] pharmacy Tresiba was picked up on 01/14/2024 and it was not accidentally filled because of his (pt's) shaky hand. Patient did not sound pleased with my response, he said ok, and call ended. Liza Kramer LPN January 26, 2024 5:13 PM documented in this encounterC[facility]24 Telephone encounter Note * Telephone Encounter - Renee Domínguez LPN - 01/23/2024 2:54 PM EDT Last Office Visit: 11/24/23 Next Scheduled Office Visit: 03/05/24 Requested Prescriptions Pending Prescriptions Disp Refills DEXCOM G6 SENSOR xenia [Pharmacy Med Name: DEXCOM G6 SENSOR MIS] 3 Each 0 Sig: APPLY AND REPLACE SENSOR TOPICALLY EVERY 10 DAYS blood sugar diagnostic (ONETOUCH ULTRA TEST) test strip [Pharmacy Med Name: OneTouch Ultra Blue In Vitro Strip] 600 Each 0 Sig: TEST UP TO 7 TIMES DAILY BEFORE MEALS AND AT BEDTIME PLUS NEEDED FOR SYMPTOMS Renee Domínguez LPN January 23, 2024 2:55 PM [facility]07-15-2024 Miscellaneous Notes* Telephone Encounter - Renee Domínguez LPN - 01/23/2024 2:54 PM EDT Last Office Visit: 11/24/23 Next Scheduled Office Visit: 03/05/24 Requested Prescriptions Pending Prescriptions Disp Refills DEXCOM G6 SENSOR xenia [Pharmacy Med Name: DEXCOM G6 SENSOR MIS] 3 Each 0 Sig: APPLY AND REPLACE SENSOR TOPICALLY EVERY 10 DAYS blood sugar diagnostic (ONETOUCH ULTRA TEST) test strip [Pharmacy Med Name: OneTouch Ultra Blue In Vitro Strip] 600 Each 0 Sig: TEST UP TO 7 TIMES DAILY BEFORE MEALS AND AT BEDTIME PLUS NEEDED FOR SYMPTOMS Renee Domínguez LPN January 23, 2024 2:55 PM documented in this encounterC[facility]06-26-2024 Telephone encounter Note * Telephone Encounter - Renee Domínguez LPN - 01/04/2024 3:25 PM EDT Last Office Visit: 11/24/23 Next Scheduled Office Visit: 03/05/24 Requested Prescriptions Pending Prescriptions Disp Refills blood sugar diagnostic (ONETOUCH ULTRA TEST) test strip 600 Strip 1 Sig: Use for checking blood sugars up to 7 times daily, AC/HS plus as needed for symptoms for hyper/hypoglycemia Renee Domínguez LPN January 04, 2024 3:26 PM [facility]06-26-2024 Miscellaneous Notes* Telephone Encounter - Renee Domínguez LPN - 01/04/2024 3:25 PM EDT Last Office Visit: 11/24/23 Next Scheduled Office Visit: 03/05/24 Requested Prescriptions Pending Prescriptions Disp Refills blood sugar diagnostic (ONETOUCH ULTRA TEST) test strip 600 Strip 1 Sig: Use for checking blood sugars up to 7 times daily, AC/HS plus as needed for symptoms for hyper/hypoglycemia Renee Domínguez LPN January 04, 2024 3:26 PM documented in this encounterCleveland [facility]06-25-2024 Telephone encounter Note * Telephone Encounter - Renee Domínguez LPN - 01/03/2024 3:09 PM EDT Patient phoned office back in regards to My Chart message sent with lab results. Lab Results: A1c is high at 9.4. TSH is elevated-has he been taking thyroid medication consistently or is he out of this? Kidney and liver functions are normal. LDL is above goal of 100. Would like to increase rosuvastatin to 10 mg daily. Vitamin D mildly low, will send prescription for vitamin D supplement Patient states he was taking his thyroid medication daily prior to having his labs drawn. Patient would like to know if his thyroid medication needs to be increased? Renee Domínguez LPN January 03, 2024 3:11 PM [facility]06-25-2024 Miscellaneous Notes* Telephone Encounter - Renee Domínguez LPN - 01/03/2024 3:09 PM EDT Patient phoned office back in regards to My Chart message sent with lab results. Lab Results: A1c is high at 9.4. TSH is elevated-has he been taking thyroid medication consistently or is he out of this? Kidney and liver functions are normal. LDL is above goal of 100. Would like to increase rosuvastatin to 10 mg daily. Vitamin D mildly low, will send prescription for vitamin D supplement Patient states he was taking his thyroid medication daily prior to having his labs drawn. Patient would like to know if his thyroid medication needs to be increased? Renee Domínguez LPN January 03, 2024 3:11 PM documented in this encounterCleveland [facility]06-25-2024 Telephone encounter Note * Telephone Encounter - Stephani Cox LPN - 01/03/2024 1:40 PM EDT Patient phoned office requesting attached orders due to not being seen by Endocrinology until January.Patient is only requesting 1 month supply of the G6 Sensors, and 1 transmitter. Patient upset he has not been contacted on infibond about this, since he messaged yesterday. This nurse apologized for the inconvenience Orders attached Pended Orders ID Status Description Pended By When Reason [id number] Pended Blood-Glucose Transmitter (DEXCOM G6 TRANSMITTER) xenia-DAILY Stephani Cox LPN 01/03/24 1348 [id number] Pended Blood-Glucose Sensor (DEXCOM G6 SENSOR) xenia-CONTINUOUS Stephani Cox LPN 01/03/24 1348 Stephani Cox LPN January 03, 2024 1:49 PM [facility]06-25-2024 Miscellaneous Notes* Telephone Encounter - Stephani Cox LPN - 01/03/2024 1:40 PM EDT Patient phoned office requesting attached orders due to not being seen by Endocrinology until January.Patient is only requesting 1 month supply of the G6 Sensors, and 1 transmitter. Patient upset he has not been contacted on infibond about this, since he messaged yesterday. This nurse apologized for the inconvenience Orders attached Pended Orders ID Status Description Pended By When Reason [id number] Pended Blood-Glucose Transmitter (DEXCOM G6 TRANSMITTER) xenia-DAILY Stephani Cox LPN 01/03/24 1348 [id number] Pended Blood-Glucose Sensor (DEXCOM G6 SENSOR) xenia-CONTINUOUS Stephani Cox LPN 01/03/248 Stephani Cox LPN January 03, 2024 1:49 PM documented in this encounterCleveland Clinic [facility]06-24-2024 History of Present illness Narrative* Mercedes Spear APRN.QAMAR - 01/02/2024 5:35 PM EDT Telemedicine Visit - Distance Health Virtual Visit Note Patient seen on SnapShop Video Visit platform. Location of patient: [place] I have communicated my name and active licensure. The patient's identity and physical location wereverified at the time of this visit. Either the patient or their legal contact representative has been informed of the risks and benefits of -- and alternatives to -- treatment through a remote evaluation andconsents to proceed with the evaluation remotely. History of Present Illness Luisito Zhong is a 43 year old male who presents requesting a refill of his insulin supplies. Referral to PCP or Thermodynamic Physicist. Unable to prescribed medical equipment online - All questions answered Mercedes Spear APRN.CNP documented in this encounterCleveland [facility]05-31-2024 Telephone encounter Note * Telephone Encounter - Sruthi Ambrosio APRN.CNP - 12/09/2023 10:30 AM EDT A1c is high at 9.4. TSH is elevated-has he been taking thyroid medication consistently or is he out of this? Kidney and liver functions are normal. LDL is above goal of 100. Would like to increase rosuvastatin to 10 mg daily. Vitamin D mildly low, will send prescription for vitamin D supplement [facility]05-31-2024 Miscellaneous Notes* Telephone Encounter - Sruthi Ambrosio APRN.CNP - 12/09/2023 10:30 AM EDT A1c is high at 9.4. TSH is elevated-has he been taking thyroid medication consistently or is he out of this? Kidney and liver functions are normal. LDL is above goal of 100. Would like to increase rosuvastatin to 10 mg daily. Vitamin D mildly low, will send prescription for vitamin D supplement documented in this encounterCleveland [facility]05-16-2024 Note* Addendum Note - Sruthi Ambrosio APRN.CNP - 11/24/2023 2:34 PM EDTAddended by: SRUTHI AMBROSIO on: 11/24/2023 02:34 PM Modules accepted: Orders [facility]05-16-2024 Miscellaneous Notes* Addendum Note - Sruthi Ambrosio APRN.CNP - 11/24/2023 2:34 PM EDTAddended by: SRUTHI AMBROSIO on: 11/24/2023 02:34 PM Modules accepted: Orders documented in this encounterC[facility]05-16-2024 History of Present illness Narrative* Sruthi Ambrosio APRN.CNP - 11/24/2023 8:12 AM EDT This note was created using [employer] Allian[employer]. Subjective Luisito Zhong is a 43 year old male who presents for routine follow-up for chronic medical conditions. Last seen on 01/07/2023. He apparently went to a residential drug and alcohol treatment center in [place] in February- there for about 30 days. Had a relapse and went back to treatment in August and was there for 78 days. Living in sober living in [place]. He is scheduled with portfolio manager on January 29- Dr. Mcarthur. He does still have his insulin pump. He no longer has a transmitter sensors for Dexcom but does have a manual glucometer that he hasbeen using. I am unsure if we we will be able to get him Dexcom supplies due to investigation that was done for concerns of patient selling his supplies. He states that he was having these overriddenby the insurance due to his active substance use and having unstable housing situations. Review of Systems Constitutional: Negative for activity change, appetite change, fatigue and unexpected weight change. HENT: Negative for dental problem, ear discharge, ear pain, hearing loss and trouble swallowing. Eyes: Negative for photophobia, pain and visual disturbance. Respiratory: Negative for cough, chest tightness and shortness of breath. Cardiovascular: Negative for chest pain, palpitations and leg swelling. Gastrointestinal: Negative for abdominal distention, abdominal pain, blood in stool, constipation and diarrhea. Endocrine: Negative for cold intolerance and heat intolerance. Genitourinary: Negative for difficulty urinating, dysuria, frequency and urgency. Musculoskeletal: Negative for arthralgias, gait problem, joint swelling and myalgias. Skin: Negative for color change, rash and wound. Allergic/Immunologic: Negative for immunocompromised state. Neurological: Negative for dizziness, speech difficulty, weakness, light- headedness, numbness and headaches. Hematological: Does not bruise/bleed easily. Psychiatric/Behavioral: Negative for behavioral problems. Objective BP 138/88 (BP Site: Left Arm, BP Position: Sitting, BP Cuff Size: Regular Adult) Pulse 83 Temp 36.7 C (98 F) (Temporal) Resp 18 Ht 193 cm (6' 4) Wt 83.9 kg (185 lb) SpO2 97% BMI 22.52 kg/m Physical Exam Constitutional: Appearance: Normal appearance. HENT: Head: Normocephalic and atraumatic. Right Ear: External ear normal. Left Ear: External ear normal. Nose: Nose normal. Eyes: Extraocular Movements: Extraocular movements intact. Conjunctiva/sclera: Conjunctivae normal. Cardiovascular: Rate and Rhythm: Normal rate and regular rhythm. Pulses: Normal pulses. Heart sounds: Murmur heard. Comments: Valvular clicking heard Pulmonary: Effort: Pulmonary effort is normal. Breath sounds: Normal breath sounds. Abdominal: General: Abdomen is flat. Bowel sounds are normal. Palpations: Abdomen is soft. Musculoskeletal: Cervical back: Neck supple. Right lower leg: No edema. Left lower leg: No edema. Skin: General: Skin is warm and dry. Capillary Refill: Capillary refill takes less than 2 seconds. Neurological: General: No focal deficit present. Mental Status: He is alert and oriented to person, place, and time. Mental status is at baseline. Psychiatric: Mood and Affect: Mood normal. Behavior: Behavior normal. Assessment and Plan ASSESSMENT/PLAN: 1. Type 1 diabetes mellitus with diabetic polyneuropathy (HCC) - ICD9: 250.61, 357.2, ICD10: E10.42(primary diagnosis) - Control undetermined, due for labs-has appointment to re-establish with endocrinology - Continue current medications - Statin prescribed - rosuvastatin - Blood glucose monitoring on a before meals and before bedtime schedule - Counseled on healthy diet and regular exercise - Discussed diabetic education issues of diabetes complications and monitoring required - COMPREHENSIVE METABOLIC PANEL - HEMOGLOBIN A1C - ROSUVASTATIN 5 MG TABLET - LIPID PANEL, NONFASTING - ALBUMIN/CREATININE RATIO, URINE 2. Acquired hypothyroidism - ICD9: 244.9, ICD10: E03.9 - Instructed patient on importance of taking on an empty stomach either first thing in the morning or at bedtime. - check TSH, free T4, and Free T3 today - continue current dose of Synthroid, titrate as needed - THYROID STIMULATING HORMONE - T3, FREE - T4 FREE/FREE THYROXINE 3. Simple chronic bronchitis (HCC) - ICD9: 491.0, ICD10: J41.0 Stable, continue current medication regimen - ANORO ELLIPTA 62.5 MCG-25 MCG/ACTUATION POWDER FOR INHALATION - COMPLETE BLOOD COUNT AND DIFFERENTIAL 4. Mixed anxiety and depressive disorder - ICD9: 300.4, ICD10: F41.8 Stable, continue current medication regimen - DULOXETINE 30 MG CAPSULE,DELAYED RELEASE - ESCITALOPRAM 20 MG TABLET 5. Vitamin D deficiency - ICD9: 268.9, ICD10: E55.9 - VITAMIN D 25 HYDROXY 6. Screening for prostate cancer - ICD9: V76.44, ICD10: Z12.5 - PSA/PROSTATE SPECIFIC ANTIGEN SCREENING Luisito Zhong is to follow up in three months. Discussed need for taking all medications as prescribed, increasing activity level as tolerated, lowering sodium and processed food intake, nicotine cessation, and monitoring blood sugars at home at today's visit. Patient is aware to call the office or send communication via Venuuhart for questions or concerns regarding today's appointment or follow up. Sruthi Ambrosio APRN.SENIOR TECHNICAL ARCHITECT This note was partially generated using PhotoBox voice recognition system, and there may be some incorrect words, spellings, and punctuation that were not noted in checking the note before saving. documented in this encounterCleveland Clinic [facility]05-16-2024 Nurse Note* Renee Domínguez LPN - 11/24/2023 8:04 AM EDT Patient is in office today for a follow-up on chronic medical conditions. Patient would like to discuss medication refills today. Renee Domínguez LPN November 24, 2023 8:08 AM [facility]05-16-2024 Nurse Note* Renee Domínguez LPN - 11/24/2023 8:04 AM EDT Patient is in office today for a follow-up on chronic medical conditions. Patient would like to discuss medication refills today. Renee Domínguez LPN November 24, 2023 8:08 AM documented in this encounterCleveland [facility]05-14-2024 Telephone encounter Note * Telephone Encounter - Marina Orantes - 11/22/2023 11:11 AM EDT I spoke with Luisito regarding his diabetic equipment request being denied per Sruthi I have refused this order- he will need to see endocrinology. Luisito verbalized understanding. Marina Lynne November 22, 2023 11:13 AM [facility]05-14-2024 Miscellaneous Notes* Telephone Encounter - Marina Orantes - 11/22/2023 11:11 AM EDT I spoke with Luisito regarding his diabetic equipment request being denied per Sruthi I have refused this order- he will need to see endocrinology. Luisito verbalized understanding. Marina Lynne November 22, 2023 11:13 AM * Telephone Encounter - Sruthi Ambrosio APRN.QAMAR - 11/18/2023 12:02 PM EDT Hi, I have refused this order- he will need to see endocrinology. * Telephone Encounter - Marina Orantes - 11/18/2023 11:42 AM EDT Luisito just got ou of rehab and is out of his diabetic testing supplies. He is [facility] on . OMAR: 01/07/23 NSOV: 11/24/23 He was going to stay at the [facility] and see Robyn Taylor but he has moved to [place]. He would like to continue seeing Sruthi. Requested Prescriptions Pending Prescriptions Disp Refills Blood-Glucose Meter,Continuous (DEXCOM G6 FOOTWEAR MACHINERY INSTRUCTOR) misc 1 Each 0 Sig: Use to check blood sugar at least four (4) times daily. Blood-Glucose Transmitter (DEXCOM G6 TRANSMITTER) xenia 1 Each 3 Sig: Apply new transmitter every 90 days. Clean transmitter with an alcohol swab with each sensor change. Thank you. Marina Lynne November 18, 2023 11:47 AM documented in this encounterCleveland Clinic [facility]05-10-2024 Telephone encounter Note * Telephone Encounter - Sruthi Ambrosio APRN.SENIOR TECHNICAL ARCHITECT - 11/18/2023 12:02 PM EDT Hi, I have refused this order- he will need to see endocrinology. [facility]05-10-[facility]24 Telephone encounter Note* Telephone Encounter - Marina Orantes - 11/18/2023 11:42 AM EDT Luisito just got ou of rehab and is out of his diabetic testing supplies. He is requesting they be sent to the [facility] on . OMAR: 01/07/23 NSOV: 11/24/23 He was going to stay at the [place] office and see Robyn Taylor but he has moved to [place]. He would like to continue seeing Sruthi. Requested Prescriptions Pending Prescriptions Disp Refills Blood-Glucose Meter,Continuous (DEXCOM G6 FOOTWEAR MACHINERY INSTRUCTOR) misc 1 Each 0 Sig: Use to check blood sugar at least four (4) times daily. Blood-Glucose Transmitter (DEXCOM G6 TRANSMITTER) xenia 1 Each 3 Sig: Apply new transmitter every 90 days. Clean transmitter with an alcohol swab with each sensor change. Thank you. Marina Lynne November 18, 2023 11:47 AM [facility]03-21-2024 Miscellaneous Notes* Telephone Encounter - Isabel Jose - 09/29/2023 2:00 PM EDTSummary: No Show #1 [employer] No-Show Documentation Luisito Zhong no showed for an appointment on 09/28/23 with Brinda Taylor APRN The patient was was scheduled for a follow up appointment. I called and spoke with the patient regarding missed appointment. N/A The patient stated the reason that they missed the appointment was because hospital admission: In Rehab . Resources discussed/offered to patient: N/A No show determined to be fault of patient: N/A This is the patients first no show in the last 12 months. Patient was rescheduled for N/A. Letter mailed regular mail AND certified : No Is this the Third or Fourth No Show? Luz Jose September 29, 2023 2:07 PM documented in this encounterCleveland Clinic [facility]02-05-2024 Miscellaneous Notes* Telephone Encounter - Stephani Cox LPN - 08/15/2023 5:41 PM EST Last Office Visit: 01-07-2023 Next Scheduled Office Visit: None scheduled Requested Prescriptions Pending Prescriptions Disp Refills ANORO ELLIPTA 62.5-25 mcg/actuation inhaler [Pharmacy Med Name: ANORO ELLIPTA 62.5-25 MCG INH] 3 Each 3 Sig: inhale 1 puff by mouth once daily as directed Stephani Cox LPN August 15, 2023 5:43 PM documented in this encounterCleveland Clinic [facility]11-16-2023 Miscellaneous Notes* Telephone Encounter - Stephani Cox LPN - 05/26/2023 3:14 PM EST Records indicate there is an active script at pharmacy Stephani Cox LPN May 26, 2023 3:15 PM * Telephone Encounter - Isabel Jose - 05/26/2023 1:50 PM EST escitalopram oxalate (LEXAPRO) 20 mg tablet - [id number] [place] [address] - [address] [phone] *LVM to schedule with either SHELLY Garcia or SHELLY Taylor documented in this [facility]11-15-2023 Miscellaneous Notes* Telephone Encounter - Cielo Bloom - 05/25/2023 9:14 AM EST No Show Documentation Luisito S Farheen no showed for an appointment on 05/25/2023 with Dwayne Araujo APRN.SENIOR TECHNICAL ARCHITECT at 9a. He was scheduled for a follow-up visit. I called and spoke with the patient regarding his missed appointment. Luisito stated the reason that he missed his appointment was because Left voicemail to call back and reschedule . Resources discussed/offered to patient: Left voicemail to call back and reschedule. No show determined to be fault of patient: Yes This is the patients first no show in the last 12 months. Patient was rescheduled for Left voicemail to call back and reschedule.. Letter mailed : Yes Is this the Third or Fourth No Show? Luz Bloom May 25, 2023 9:15 AM documented in this encounterCleveland [facility]11-[facility]-2023 Miscellaneous Notes* Telephone Encounter - Aniya Mills LPN - 05/19/2023 2:03 PM EST Provider signed the form, form faxed, confirmation received and given to lyric to scan into pt's chart Aniya Mills LPN * Telephone Encounter - Aniya Mills LPN - 05/19/2023 12:33 PM EST Patient has been identified by name and date of : Yes, Provider Dwayne Araujo Date 05/19/2023 Time 12:33 pm Type of form: Medical Necessity Form received via: Fax When form is completed, fax form to fax number provided. Form has been forwarded to: Provider's desk. Provider name: Dwayne Araujo to be signed Aniya Mills LPN documented in this encounterCleveland Clinic [facility]10-27-2023 Telephone encounter Note * Telephone Encounter - Jocelyne Godwin - 05/06/2023 3:39 PM EDT Name of caller: Betty Contact phone number: [phone] Relationship to Patient: [facility] Services Provider: QAMAR Oviedo Practice: [facility] Endocr[facility]ology Chief Complaint/Reason for Call: Betty states that she is calling to see if the LMN for insulin pump supplies, sent on 05/03 has been received. Betty states that they would like to receive a cb at [phone] to confirm. Please advise. Best time of day caller can be reached: Any Patient advised that office/PCP has 24-48 business hours to return their call: No [id number] Miscellaneous Notes* Telephone Encounter - Jocelyne Guillory - 05/06/2023 3:39 PM EDT Name of caller: Betty Contact phone number: [phone] Relationship to Patient: [facility] Services Provider: QAMAR Oviedo Practice: [facility] Endocrinology Chief Complaint/Reason for Call: Betty states that she is calling to see if the LMN for insulin pump supplies, sent on 05/03 has been received. Betty states that they would like to receive a cb at [phone] to confirm. Please advise. Best time of day caller can be reached: Any Patient advised that office/PCP has 24-48 business hours to return their call: No documented in this encounterSCleveland Clinic Akron [id number] History of Present illness Narrative* Luz Maria Perez MD - 05/06/2023 11:30 AM EDT Subjective: Patient: Luisito Zhong is a 43 y.o. male HPI Is 43 years old he has a complex history in which she has had 2 surgeries for subaortic stenosis approximately 4 years ago he had his original surgery here at [facility] and then the membrane reoccurred and had another operation through the [place] [facility] system within the last 18 months. At the same time his aortic valve was removed and replaced with a bioprosthetic valve he has a history of substance use in the past he does smoke cigarettes. During his last visit he was continued to use cocaine and methamphetamine on a daily basis with this he is lost almost 100 pounds his last weight 190 past during his last visit his bioprosthetic aortic valve is functioning normally his LV function was normal of concern was his drug use he looked weathered. 1 month ago his electrolytes and renalfunction were normal today presents in follow-up for his valvular heart disease. His father broughthim in during his last visit Today again his father brought him in. He has been off any street drugs for the last 4 months. He is now gaining weight. He continues in drug rehab. He has had no significant shortness of breath primary complaint is 3 Leticia involving his right hip and poor sleep. He believes he has sleep apnea Review of Systems Constitutional: Negative. HENT: Negative. Eyes: Negative. Respiratory: Negative. Cardiovascular: Negative. Gastrointestinal: Negative. Endocrine: Negative. Genitourinary: Negative. Musculoskeletal: Positive for arthralgias and gait problem. Skin: Negative. Allergic/Immunologic: Negative. Hematological: Negative. Psychiatric/Behavioral: Positive for sleep disturbance. Allergies Allergen Reactions Hydromorphone Itching Tramadol Other reaction(s): Other: See Comments Burning skin Burning skin @[email or web address]@ Past Medical History: Diagnosis Date Anxiety Aortic stenosis Carpal tunnel syndrome 2018 right Cocaine abuse (HCC) Depression Diabetes mellitus type 1 (HCC) 1984 Hyperlipidemia Thyroid disease Past Surgical History: Procedure Laterality Date CARDIAC SURGERY 01/26/2022 CARPAL TUNNEL RELEASE ELBOW SURGERY Right 2018 cubital tunnel syndrome HIP SURGERY Right OTHER SURGICAL HISTORY 12/20/2018 resection of LV outflow tract obstruction-subaortic valve membrane OTHER SURGICAL HISTORY Left 11/30/2018 Carpel Tunnel SHOULDER SURGERY Left 2012 adhesive capsulitis CHASE and arthroscopy Family History Problem Relation Name Age of Onset Colon cancer Maternal Grandmother No Known Problems Father No Known Problems Mother Other ([id number]) Sister MS Heart disease Paternal Grandmother Social History Tobacco Use Smoking status: Every Day Packs/day: .5 Types: Cigarettes Smokeless tobacco: Never Substance Use Topics Alcohol use: Not Currently Objective: BP 110/72 (BP Location: Left arm, Patient Position: Sitting, BP Cuff Size: Adult) Pulse 76 Ht 6' (1.829 m) Wt 223 lb (101 kg) SpO2 98% BMI 30.24 kg/m Physical Exam Vitals and nursing note reviewed. Constitutional: Appearance: Normal appearance. HENT: Head: Normocephalic and atraumatic. Nose: Nose normal. Eyes: Extraocular Movements: Extraocular movements intact. Conjunctiva/sclera: Conjunctivae normal. Pupils: Pupils are equal, round, and reactive to light. Cardiovascular: Rate and Rhythm: Normal rate and regular rhythm. Pulses: Normal pulses. Heart sounds: Murmur heard. Systolic murmur is present with a grade of 2/6. Comments: To carotid from chest Pulmonary: Effort: Pulmonary effort is normal. Breath sounds: Normal breath sounds. Abdominal: General: Abdomen is flat. Bowel sounds are normal. Palpations: Abdomen is soft. Musculoskeletal: General: No swelling. Normal range of motion. Cervical back: Normal range of motion and neck supple. Skin: General: Skin is warm and dry. Neurological: General: No focal deficit present. Mental Status: He is alert and oriented to person, place, and time. Mental status is at baseline. Psychiatric: Mood and Affect: Mood normal. Behavior: Behavior normal. Thought Content: Thought content normal. Assessment 1. FALGUNI (obstructive sleep apnea) 2. Dyspnea on exertion 3. Subaortic membrane 4. S/P AVR (aortic valve replacement) 5. Substance abuse (CMS/HCC) (HCC) 6. Mixed hyperlipidemia Plan Luisito Zhong is stable from a cardiac standpoint he has been off street drugs for over 4 months and has seen drug rehab. He is now gaining weight because of this. His cardiac exam reveals regular rhythm he has a grade 1-2 systolic murmur to the right upper sternal border unchanged from the past no diastolic murmur was heard he had no edema. Cardiac standpoint he is stable I am pleased that he is off street drugs at least at this time by history he has sleep apnea which is untreated I will make a referral to our sleep specialist so they can decide if any treatment is required I will see him back in the office in 6 months. Sooner if difficulties Luz Maria Perez MD 05/06/2023 1:45 PM In preparation for this encounter, we have personally reviewed pertinent lab work, imaging, and cardiac testing. documented in this [facility]08-25-2023 Instructions* Patient Instructions* Dwayne Araujo APRN.CNP - 03/04/2023 7:49 AM EDT Continue use of tandem pump. I will fax a letter to your rehab stating that I am managing your diabetes. Report to rehab facility in the morning documented in this encounterCleveland Clinic [facility]08-24-2023 History of Present illness Narrative* Dwayne Araujo APRN.CNP - 03/03/2023 5:30 PM EDT Endocrinology Virtual Visit This is a virtual visit using Medium video visit. It required patient-provider interaction for themedical decision making as documented below. I have communicated my name and active licensure. The patient's identity and physical location wereverified at the time of this visit. Either the patient or their legal contact representative has been informed of the risks and benefits of -- and alternatives to -- treatment through a remote evaluation andconsents to proceed with the evaluation remotely. Luisito is a 42 year old male who presents for diabetes management. Timeline: Diagnosed with type 1 diabetes age 3. Established care with endocrinology 07/2022 Complications: Nephropathy:none Neuropathy:yes - controlled Diabetic retinopathy:none Current medications for diabetes: Pump Settings: -- Pump Type: Tslim -- Insulin Type: U100 Basal rate: Time 0000 0.9 0400 1.1 0700 1.5 1100 1.6 1800 1.4 2300 1.15 Total Basal: 32.25 Carb ratio: 10 Insulin Sensitivity: 0000 35 0400 35 0700 35 1100 32 1800 35 2300 35 Blood glucose target: 110 Insulin time: 5 Taking JAMIL/ARB:no Taking Statin:yes Previous medications for diabetes: medtronic pump in past, tandem t-slim Today's visit: Patient presents today for diabetes followup. Last seen by me 2 weeks ago. He stateshe is addicted to crack cocaine and he wants to go to rehab and needs medical clearance. He has been using his tandem pump for the last several weeks. He is not using it with dexcom. States that he sold some of his diabetic supplies for drug money. He states he is currently checking his blood sugars 1-2x per day. Denies DKA symptoms. Feels that he needs rehab to get help for his drug addiction and when he is impaired he is not ableto manage his diabetes well. He wants to improve. ___ Typical day/occupation: Not currently working Diet: typically eats 2x daily Exercise/activity: does walking 3-4x weekly Hypertension and lipids managed by PCP Denies frequent periods of hypoglycemia. Patient verbalized understanding of the signs and symptomsof hypoglycemia and its treatment options. Important Diabetes Lab History: HBA1C: 01/2022 8.1%. 07/2022 8.9% Thyroid Function Testin02/2022 TSH 1.898 Renal Function Testin01/2022 creatinine 0.90 GFR 109 Urine for Microalbumin: none on record Lipid Profile: 12/2021 TG 204 HDL 65 LDL 114 TG 127 Liver Profile: 01/2022 Alk Phos 96 AST 29 ALT 32 Important Diabetes Maintenance: Eye Exam: Patient educated to have ophthalmology visits at least once a year. Eye exam pending, sister is an eye dr and gives him dilated exams Foot Exam: Follows with a event av operator HISTORY REVIEWED (electronic chart updated): PAST MEDICAL HISTORY Diagnosis Date Acquired hypothyroidism Alcohol abuse sober since 2013 Anxiety and depression 04/04/2019 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 Has been clean since 06/21/2018. Went to treatment at [facility] for 9 months Mitral regurgitation Murmur Rotator cuff syndrome 06/18/2015 Subaortic membrane with stenosis Tetrahydrocannabinol (THC) use disorder, mild, in sustained remission, in controlled environment, abuse Type 1 diabetes mellitus with diabetic polyneuropathy (HCC) PAST SURGICAL HISTORY Procedure Laterality Date HIP SURGERY HX Right PAST SURGICAL HISTORY OF Left shoulder scope PAST SURGICAL HISTORY OF 12/2018 aortic valve surgery to help open up REVISE MEDIAN N/CARPAL TUNNEL SURG Bilateral RT ELBOW CUBITAL TUNNEL ONLY Right SHOULDER SURGERY HX Right x4 FAMILY HISTORY Problem Relation Age of Onset No Known Problems Mother No Known Problems Father No Known Problems Sister No Known Problems Sister Cancer Maternal Grandmother Heart Attack Paternal Grandfather Social History Tobacco Use Smoking status: Every Day Packs/day: 0.50 Years: 25.00 Additional pack years: 0.00 Total pack years: 12.50 Types: Cigarettes Last attempt to quit: 11/2021 Years since quittin.3 Smokeless tobacco: Never Tobacco comments: nicotine lozenges daily Vaping Use Vaping Use: Former Substances: Nicotine, Flavoring Devices: Disposable Substance Use Topics Alcohol use: Not Currently Drug use: No Comment: cocaine use in remission, last use 10/17/2014 Current Outpatient Medications Medication Sig insulin lispro (HUMALOG U-100 INSULIN) 100 unit/mL injection Inject up to 90 units per day via insulin pump. Blood-Glucose Sensor (DEXCOM G6 SENSOR) xenia Apply new sensor every ten (10) days to abdomen. blood sugar diagnostic ([place] MedicalTOUCH ULTRA TEST) test strip Use for checking blood sugars up to 7 timesdaily, AC/HS plus as needed for symptoms for hyper/hypoglycemia umeclidinium-vilanterol (ANORO ELLIPTA) 62.5-25 mcg/actuation inhaler Inhale 1 Inhalation as instructed once daily. Blood-Glucose Meter,Continuous (DEXCOM G6 FOOTWEAR MACHINERY INSTRUCTOR) misc Use to check blood sugar at least four (4)times daily. (Patient not taking: Reported on 02/17/2023) Blood-Glucose Transmitter (DEXCOM G6 TRANSMITTER) xenia Apply new transmitter every 90 days. Clean transmitter with an alcohol swab with each sensor change. (Patient not taking: Reported on 02/17/2023) OMNIPOD 5 G6 PODS, GEN 5, crtg Change pod every 48 hours. OMNIPOD 5 G6 INTRO KIT, GEN 5, crtg Change pod every 48 hours. insulin degludec (TRESIBA FLEXTOUCH U-100) 100 unit/mL (3 mL) injection pen Inject 40 Units subcutaneously once daily. Insulin Syringe-Needle U-100 (BD INSULIN SYRINGE ULTRA-FINE) 0.5 mL 31 gauge x 5/16 Inject 1 Each subcutaneously three times daily. Use 3 times daily with Humalog injections. Diagnosis E10.65 PATIENT IS OFF OF INSULIN PUMP AND NOW USING BASAL/BOLUS INSULIN AGAIN escitalopram oxalate (LEXAPRO) 20 mg tablet Take 1 tablet by mouth once daily. DULoxetine (CYMBALTA) 30 mg capsule Take 1 capsule by mouth once daily. acetaminophen (TYLENOL) 500 mg tablet 1,000 mg. aspirin, enteric coated (ASPIRIN, ENTERIC COATED) 81 mg EC tablet Take 81 mg by mouth q 24 HR. Insulin [place], Disposable, (BD ULTRAFINE III MINI PEN) 31 gauge x 3/16 USE WITH INSULIN PENS ONCE DAILY diagnosis E10.65 PATIENT IS OFF OF INSULIN PUMP AND NOW USING BASAL/BOLUS INSULIN AGAIN levothyroxine (SYNTHROID) 150 mcg tablet Take 1 tablet by mouth once daily. rosuvastatin (CRESTOR) 5 mg tablet Take 1 tablet by mouth daily at bedtime. ibuprofen (MOTRIN) 800 mg tablet Take 1 tablet by mouth every 8 hours as needed for pain or fever (specify). VITAMIN D-3 50 mcg (2,000 unit) tablet Take 1 tablet by mouth once daily. fluticasone (FLONASE) 50 mcg/actuation nasal spray Use 1 [place] in the nose once daily as needed. ALLERGY RELIEF, LORATADINE, 10 mg tablet Take 10 mg by mouth once daily. Current Facility-Administered Medications Medication Dose Route Frequency perflutren lipid microspheres 1.3 mL in NaCl (PF) 0.9% 10 mL injection (DEFINITY) INTRAVENOUS DIRECTED PRN sodium chloride 0.9 % (flush) 10 mL (BD POSIFLUSH) 10 mL INTRAVENOUS DIRECTED PRN ALLERGIES Allergen Reactions Hydromorphone Itching Tramadol Other: See Comments Burning skin REVIEW OF SYSTEM: Review of Systems Constitutional: Negative for fatigue. Eyes: Negative for visual disturbance. Respiratory: Negative for difficulty breathing. Cardiovascular: Negative for chest pain. Gastrointestinal: Negative for abdominal pain. Genitourinary: Negative for urgency. Skin: Negative for skin color change. PHYSICAL EXAMINATION: VIDEO EXAM: (if completed, performed via video enabled technology) Physical Exam Constitutional: General: He is not in acute distress. Appearance: Normal appearance. He is not ill-appearing or toxic-appearing. HENT: Head: Normocephalic and atraumatic. Eyes: General: No scleral icterus. Pulmonary: Effort: Pulmonary effort is normal. No respiratory distress. Skin: Coloration: Skin is not jaundiced or pale. Neurological: General: No focal deficit present. Mental Status: He is alert and oriented to person, place, and time. Psychiatric: Mood and Affect: Mood normal. Behavior: Behavior normal. Thought Content: Thought content normal. Judgment: Judgment normal. ASSESSMENT & PLAN: Plan ASSESSMENT/PLAN: 1. Type 1 diabetes mellitus with hyperglycemia (HCC) - ICD9: 250.01, ICD10: E10.65 (primary diagnosis) A1c not checked today. He is using tandem pump, not able to access report but he states he has beenusing it consistently for the last few weeks. 2. High risk medication use - ICD9: V58.69, ICD10: Z79.899 insulin 3. Illicit drug use - ICD9: 305.90, ICD10: F19.90 Crack cocaine - wants to go to rehab but needs a letter stating that I am helping him to manage hisdiabetes. I called and spoke to Nurse Karina at his facility. Plan is to fax a letter first thing inthe morning and for him to report to rehab. 4. Insulin pump status - ICD9: V45.85, ICD10: Z96.41 Continue tandem pump Plan of care: 1. HbA1C not checked today. 2. Medication changes: none at this time Pump Settings: -- Pump Type: Tslim -- Insulin Type: U100 Basal rate: Time 0000 0.9 0400 1.1 0700 1.5 1100 1.6 1800 1.4 2300 1.15 Total Basal: 32.25 Carb ratio: 10 Insulin Sensitivity: 0000 35 0400 35 0700 35 1100 32 1800 35 2300 35 Blood glucose target: 110 Insulin time: 5 3. Total time in direct patient contact = 20 min. Greater than 50% of the time was spent in counseling and/or coordination of care. 4. Self-monitoring blood glucose log sheets were given to the patient. Patient instructed to fill them out and bring to the next visit. 5. Comprehensive diabetic education provided. Answered all questions. 6. Educated patient on therapeutic lifestyle changes. 7. Patient verbalized understanding of all the above instructions. Some elements may have been copied from previous notes but have been updated where appropriate and all reflect current medical decision making from today Follow up: Return in about 2 months (around 05/03/2023). Patient Instructions Continue use of tandem pump. I will fax a letter to your rehab stating that I am managing your diabetes. Report to rehab facility in the morning I spent a total of 35 minutes on the date of the service which included preparing to see the patient, [id number] patient care, completing clinical documentation, obtaining and/or reviewing separately obtained history, performing a medically appropriate examination, counseling and educating the pat ient/family/caregiver, ordering medications, tests, or procedures, communicating with other HCPs (not separately reported), independently interpreting results (not separately reported), communicatingresults to the patient/family/caregiver, and care coordination (not separately reported) Dwayne Araujo APRN.CNP documented in this encounterCleveland Clinic Ment[facility] Hospital08-21-2023 Miscellaneous Notes* Telephone Encounter - Kingston Page LPN - 02/28/2023 3:34 PM EDT Patient called requesting the following refill. Requested Prescriptions Pending Prescriptions Disp Refills insulin lispro (HUMALOG U-100 INSULIN) 100 unit/mL injection 80 mL 3 Sig: Inject up to 80 units per day via insulin pump. Patient last appointment: 01/07/2023 Patient Phone numbers: [phone] (home) Request is for script(s) to be escript to pharmacy. Kingston Page LPN documented in this encounterCleveland Clinic Mentor Hospital08-18-2023 Miscellaneous Notes* Telephone Encounter - Emmett Jarquin APRN.CNP - 02/25/2023 10:20 AM EDT I called and spoke with Dwayne and Karina regarding this issue. This patient has failed to prove that he is compliant with his treatment regimen, therefore we cannot write a letter stating that he ismedically cleared for a rehabilitation program. Karina states she will contact the patient and advise him to schedule a follow up visit with Dwayne in 1-2 weeks, and at that visit he must bring glucose logs and provide proof that he is taking his insulin as prescribed. After an additional 2-3 visits where the patient is able to prove consistent compliance, Dwayne can re-visit the idea of clearing him for a rehab program. Emmett Jarquin APRN.CNP * Telephone Encounter - Anita Dan - 02/25/2023 9:56 AM EDT Karina [phone] nurse at the pt's [facility] called and stated Forrestsent letter of clearance for pt to enter the program the letter was sent out 02/08/2023 pt has not shown up to the program. She stated he has stop taking his medication wasn't being medically compliant. Now he's back taking his medication and want to come back into the program. Also, she stated pt was in the hospital last week for DKA. Karina is concerned if the pt is compliant with his treatment, needing a letter again stating he is and if it would be a good idea for him to come back. Anita Dan documented in this encounterCleveland Clinic [facility]08-14-2023 Miscellaneous Notes* Telephone Encounter - Colleen Hoffman LPN - 02/21/2023 10:09 AM EDT Patient MyChart message requesting the following refill. Requested Prescriptions Pending Prescriptions Disp Refills Blood-Glucose Sensor (DEXCOM G6 SENSOR) xenia 9 Each 3 Sig: Apply new sensor every ten (10) days to abdomen. blood sugar diagnostic (ONETOUCH ULTRA TEST) test strip 200 Strip 5 Sig: Use for checking blood sugars up to 7 times daily, AC/HS plus as needed for symptoms for hyper/hypoglycemia umeclidinium-vilanterol (ANORO ELLIPTA) 62.5-25 mcg/actuation inhaler 3 Each 3 Sig: Inhale 1 Inhalation as instructed once daily. Patient last appointment: 01/07/2023 Patient Phone numbers: [phone] (home) Request is for script(s) to be escript to [facility] pharmacy. Colleen Hoffman LPN documented in this encounterCleveland Clinic [facility]08-10-2023 Instructions* Patient Instructions* Dwayne Araujo APRN.SENIOR TECHNICAL ARCHITECT - 02/17/2023 1:33 PM EDT Go to the ER and be evaluated for DKA documented in this encounterCleveland Clinic Ment[facility]08-10-2023 History of Present illness Narrative* Dwayne Araujo APRN.CNP - 02/17/2023 1:19 PM EDT Kerry Jorge is a 42 year old male who presents for diabetes management. Timeline: Diagnosed with type 1 diabetes age 3. Established care with endocrinology 07/2022 Complications: Nephropathy:none Neuropathy:yes - controlled Diabetic retinopathy:none Current medications for diabetes: Tresiba 38 units Humalog 13-20 with meals Taking JAMIL/ARB:no Taking Statin:yes Previous medications for diabetes: medtronic pump in past, tandem t-slim Today's visit: Patient presents today for diabetes followup. Last seen by me 01/2023. He states thathe has been using crack cocaine, not taking care of himself or watching his blood sugars or giving himself proper insulin. Recently put his Tandem insulin pump back on but not using it with CGM. Went[facility] [place] [facility] yesterday for possible DKA, blood sugars >500,+ketones, excessive thirst, and excessive urination. He states that he left the [place] ER before being seen and made an appointment to see me instead. At last visit last month, I ordered him omnipod 5 insulin pump, which he did pickle cutter but he has notgotten trained on it yet. No meter, blood sugar logs, or recent CGM use. Pt's father states that patient wants to go to rehab for crack addiction. They state that rehab won't accept patient unless his diabetes is controlled. Patient has issues controlling his diabetes when using crack cocaine so he is in a viscous cycle. Patient asked me in the past to write a letter to his rehab facility that I am his diabetes provider. I did complete this for him. I discussed with patient and father that I cannot state that his diabetes is under control at present because his last A1c was 10.0%. I advised patient to go to the ER as he still thinks that he is in DKA. If he is in DKA he needs alize treated emergently. ___ Typical day/occupation: Not currently working Diet: typically eats 2x daily Exercise/activity: does walking 3-4x weekly Hypertension and lipids managed by PCP Denies frequent periods of hypoglycemia. Patient verbalized understanding of the signs and symptomsof hypoglycemia and its treatment options. Important Diabetes Lab History: HBA1C: 01/2022 8.1%. 07/2022 8.9% Thyroid Function Testin02/2022 TSH 1.898 Renal Function Testin01/2022 creatinine 0.90 GFR 109 Urine for Microalbumin: none on record Lipid Profile: 12/2021 TG 204 HDL 65 LDL 114 TG 127 Liver Profile: 01/2022 Alk Phos 96 AST 29 ALT 32 Important Diabetes Maintenance: Eye Exam: Patient educated to have ophthalmology visits at least once a year. Eye exam pending, sister is an eye dr and gives him dilated exams Foot Exam: Follows with a event av operator Review of Systems Constitutional: Negative for fever. Cardiovascular: Negative for chest pain. Gastrointestinal: Negative for abdominal pain. Genitourinary: Positive for frequency. Skin: Negative for rash. Endo/Heme/Allergies: Positive for polydipsia. 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 Show? No Cielo Bloom September 03, 2022 3:32 PM documented in this encounterC[facility]02-20-2023 Miscellaneous Notes* Telephone Encounter - Eliza Enriquez DO - 08/30/2022 8:56 PM EST Pt called answering service at 8 PM Tuesday evening to report that he went to [facility] at 4 PM today and asked for a different insulin such as 70/30 and they wouldn't give it to him. States he doesn't like Tresiba. States now off insulin pump and Tresiba dose is too high - he cut back from 36 units to 28 units and still had hypoglycemia last night. Advised pt to decrease Tresiba to 24 units. He has Dexcom. He has follow-up appt with Dwayne on 09/03 to further discuss. Eliza Enriquez DO documented in this encounterC[facility]02-15-2023 Emergency department Note * Lulu Franklin RN - 08/25/2022 8:04 PM EST This RN reviewed pt discharge instructions with pt. Pt verbalized understanding and denies questions at this time. Pt A&Ox4 no distress noted. Pt signed AMA paperwork. Pt denies need for wheelchair and ambulated out of ED with a steady gait. Lulu Franklin RN 08/25/222004 [id number] Emergency department Note* Lulu Franklin RN - 08/25/2022 8:04 PM EST This RN reviewed pt discharge instructions with pt. Pt verbalized understanding and denies questions at this time. Pt A&Ox4 no distress noted. Pt signed AMA paperwork. Pt denies need for wheelchair and ambulated out of ED with a steady gait. Lulu Franklin RN 08/25/222004 * Lulu Franklin RN - 08/25/2022 8:01 PM EST This RN went to bedside to answer call light pt had unhooked his fluids and they were running all over floor. This RN hooked them back up. Pt states that he would like to speak to the physician and would like to leave AMA. This RN notified Dr Barba who came to bedside to speak with pt. Pt states that he does not feel like his treatment is going quick enough. Dr Barba advised pt that he was being seen by ICU and that they are placing orders. Pt states I dont care I want to leave Dr Barba explained the risks of leaving to the patient. He verbalized understanding and states that he would still like to leave Lulu Franklin RN 08/25/222003 * JONY Arrieta - 08/25/2022 6:16 PM EST Guided mom back to see pt. JONY Arrieta 08/25/22 181 * Dulce Maria Barba MD - 08/25/2022 5:10 PM EST Emergency Department Encounter [facility] ED Patient: Luisito Zhong : 1980 Date of Evaluation: 08/25/2022 ED Supervising Physician: DULCE MARIA BARBA MD I independently examined and evaluated Luisito Zhong. This will serve as my Supervisory note and shared attestation. I did perform a substantive portion of the visit including all aspects of the Medical Decision Making. I wore appropriate PPE for the entirety of this encounter. History: In brief, Luisito Zhong is a 42 y.o. male that presents to the emergency department complaining offeeling weak and tired. The patient states that he lost the dross skimmer to his insulin pump. He has notbeen checking his blood sugars. He does not know what their levels have been. He states that since yesterday he has had nausea and vomiting. He feels weak and tired. He has been admitted to the hospital before for diabetic ketoacidosis. Focused exam: On examination the patient is a middle-aged male found lying on a cart. He is alert and oriented. He is hypotensive as well as is tachycardic. He appears ill. HEENT exam demonstrates oral mucosa membranes to be dry. Neck is supple. Chest is clear. Normal cardiac exam. Abdomen is soft flat and is nontender. Bowel sounds are normal active. Differential Diagnosis: Differential diagnosis includes lactic acidosis, diabetic ketoacidosis, dehydration, acute coronarysyndrome, metabolic abnormality. ED testing and evaluation will be obtained to help differentiate these diagnostic possibilities anddetermine the most likely cause. Diagnostic testing undertaken, as well as those tests considered but not ordered: Laboratory work is obtained including blood gas analysis and serum ketones. Disposition will be based on results of diagnostic testing and reassessment. EKG interpretation: An EKG is obtained. It demonstrates a sinus tachycardia with a rate of 102. QRS axis is 97 degrees.Biatrial enlargement is present. No acute ST segment findings are found. There is no evidence of anST elevation [place]. CRITICAL CARE TIMETotal Critical Care time was 30 minutes, excluding separately reportable procedures. There was a high probability of clinically significant/life threatening deterioration in the patient's condition which required my urgent intervention. The patient's differential diagnosis included diabetic ketoacidosis, metabolic abnormality, lactic acidosis, dehydration. The critical care time was spent in initially evaluating the patient, discussing the patient's care with family, reviewing previous records, developing a diagnostic plan, reviewing and integrating test results into the patient's recommended treatment plan, as well as interacting with physicians who will be managing the patient after the emergency department. Brief ED course/MDM: In the emergency department the patient is given intravenous fluids. He is administered intravenous insulin as well. At this time it appears that the patient will require admission. Sources of History: I evaluated other historical sources including previous outpatient records and admission records. Patient is aware of care plan. All diagnostic, treatment, and disposition decisions were made by myself in conjunction with the EFE. For all further details of the patient's emergency department visit, please see their documentation. (Comment: Please note this report has been produced using speech recognition software and may contain errors related to that system including errors in grammar, punctuation, and spelling, as well as words and phrases that may be inappropriate. If there are any questions or concerns please feel freeto contact the dictating provider for clarification.) DULCE MARIA BARBA MD Acute Care [facility] Dulce Maria Barba MD 08/25/22 1739 Dulce Maria Barba MD 08/25/22 1739 Dulce Maria Barba MD 08/25/22 1802 * Joseline Rubin RN - 08/25/2022 5:10 PM EST Pt reports that he felt like he was going to pass out and was unsure if his sugar was high or low. Pt states his insulin pumps battery 3 days ago and has not monitored. Pt presents to triage with polar pop. BGT in triage reads HIGH documented [facility] this [facility]02-[facility] Emergency department Note* Lulu Franklin RN - 08/25/2022 8:01 PM EST This RN went to bedside to answer call light pt had unhooked his fluids and they were running all over floor. This RN hooked them back up. Pt states that he would like to speak to the physician and would like to leave AMA. This RN notified Dr Barba who came to bedside to speak with pt. Pt states that he does not feel like his treatment is going quick enough. Dr Barba advised pt that he was being seen by ICU and that they are placing orders. Pt states I dont care I want to leave Dr Barba explained the risks of leaving to the patient. He verbalized understanding and states that he would still like to leave Lulu Franklin RN 08/25/222003 [facility] [id number] Consult note* Arianna Hurtado PA-C - 08/25/2022 7:57 PM EST Images from the original note were not included. Internal Medicine: MICU Initial Consult Name: Luisito Zhong : 1980(42 y.o.) Date: 08/25/22 Attending: Dr. Barba Subjective: Chief Complaint: Light headedness HPI: 42yoM w/ PMHx T1DM, subvalvular /subaortic membrane s/p SAVR, TR s/p TV repair, hypothyroidism, anxiety, depression, tobacco use, and former polysubstance abuse (EtOH, cocaine, marijuana - in remission) who presented to [facility] ED on 08/25/22 for light-headedness. States he lost the dross skimmer for his insulin pump and it has not been working since Tuesday, has been bolusing himself with humalog (~20u) every couple of hours but does not know what his blood sugars have been because his home glucometer has also not been functioning. Recently switched from [facility] to [facility], reports that he hasbeen unable to get ahold of either office. C/o fatigue, polyuria, polydypsia, nausea, poor PO intake, and SOB x4 as well as a cyst/boil on his back which has been enlarging and has become increasingly painful. Today became very light-headed while driving prompting presentation to ED. On arrival to ED T 98.2F, HR 109, RR 28, BP 92/45, SpO2 97% on RA. Labs significant for Na 130, K 5.3, SCr 1.3, BG 650, HCO3 14, AG 23, BHB 81.5, Hgb A1c 9.8, lactate 4.2, VBG 7.349/24.3/39. Treated with 3L NS. ICU consulted for further evaluation and management. Initially planning to admit patient to ICU and initiate insulin drip for DKA; however, while still in ED patient refused admission to ICU, stated that he was leaving AMA, refusing further treatment. Stated his doctor called him in a prescription and that he would follow up with his own Thermodynamic Physicist. A&O x4 at the time. Indicated understanding of the risks of leaving AMA up to and includingdeath. Past Medical History: Diagnosis Date Anxiety Aortic stenosis Carpal tunnel syndrome 2018 right Cocaine abuse (HCC) Depression Diabetes mellitus type 1 (HCC) 1984 Hyperlipidemia Thyroid disease Past Surgical History: Procedure Laterality Date CARDIAC SURGERY 01/26/2022 CARPAL TUNNEL RELEASE ELBOW SURGERY Right 2018 cubital tunnel syndrome HIP SURGERY Right OTHER SURGICAL HISTORY 12/20/2018 resection of LV outflow tract obstruction-subaortic valve membrane OTHER SURGICAL HISTORY Left 11/30/2018 Carpel Tunnel SHOULDER SURGERY Left 2013 adhesive capsulitis CHASE and arthroscopy Family History Problem Relation Name Age of Onset Colon cancer Maternal Grandmother No Known Problems Father No Known Problems Mother Other ([id number]) Sister MS Heart disease Paternal Grandmother Social History Socioeconomic History Marital status: Single Spouse name: Not on file Number of children: Not on file Years of education: Not on file Highest education level: Not on file Occupational History Not on file Tobacco Use Smoking status: Every Day Packs/day: 0.50 Types: Cigarettes Smokeless tobacco: Never Substance and Sexual Activity Alcohol use: Not Currently Drug use: Yes Types: Cocaine Comment: few slips ups recently Sexual activity: Not on file Other Topics Concern Not on file Social History Narrative Not on file Social Determinants of Health Financial Resource Strain: Not on file Food Insecurity: Not on file Transportation Needs: Not on file Physical Activity: Not on file Stress: Not on file Social Connections: Not on file Intimate Partner Violence: Not on file Housing Stability: Not on file Allergies Allergen Reactions Hydromorphone Itching Tramadol Other reaction(s): Other: See Comments Burning skin Burning skin Prior to Admission medications Medication Sig Start Date End Date Taking? Authorizing Provider Acetaminophen Extra Strength 500 MG tablet 09/18/21 Historical Provider, albuterol 108 (90 Base) MCG/ACT inhaler Inhale 2 puffs. 09/16/20 Historical Provider, aspirin 81 MG EC tablet Take 81 mg by mouth in the morning. Historical Provider, bacitracin 500 UNIT/GM ointment 10/29/21 Historical Provider, cholecalciferol (Vitamin D-3) 50 MCG (1999 UT) tablet Take 1 tablet by mouth in the morning. 10/12/21Historical Provider, ciclopirox (Loprox) 0.77 % cream 02/22/22 Historical Provider, Continuous Blood Gluc Sensor (FreeStyle [place] 2 Sensor) misc 1 Device every 14 (fourteen) days. 07/15/22 RIC Stanford CNP Continuous Blood Gluc Transmit (Dexcom G6 transmitter) misc Change every 90 days Historical Provider, doxycycline (Vibra-Tabs) 100 MG tablet Take 100 mg by mouth in the morning and 100 mg before bedtime. 02/09/22 Historical Provider, DULoxetine (Cymbalta) [address] capsule Take 30 mg by mouth in the morning. 12/04/21 Historical Provider, escitalopram (Lexapro) 20 MG tablet Take 1 tablet by mouth in the morning. 07/22/20 Historical Provider, fluticasone (Flonase) 50 MCG/ACT nasal spray Administer 1 spray into affected nostril(s). 07/22/21 Historical Provider, Glucose Blood (Blood Glucose Test) strip Test 5 times a day & as needed for symptoms of irregular blood glucose. 08/05/20 Historical Provider, glucose blood (OneTouch Verio) test strip Test 4 times per day. DX:E10.9 05/24/22 Omayra Mitchell MD ibuprofen 600 MG tablet 09/18/21 Historical Provider, ibuprofen 800 MG tablet Take 800 mg by mouth every 8 hours as needed. 04/04/19 Historical Provider, insulin lispro (HumaLOG) 100 UNIT/ML injection Inject insulin continuous via Insulin Pump. Strength: 100 UNIT/ML 06/01/22 RIC Stanford CNP levothyroxine (Synthroid, Levoxyl) 125 MCG tablet TAKE ONE TABLET BY MOUTH EVERY MORNING ON EMPTY STOMACH Strength: 125 mcg 06/01/22 RIC Stanford CNP loratadine (Claritin) 10 MG tablet Take 10 mg by mouth in the morning. 12/14/21 Historical Provider, metoprolol tartrate (Lopressor) 50 MG tablet Take 1 tablet by mouth in the morning and at bedtime. 03/10/22 Historical Provider, mupirocin (Bactroban) 2 % ointment 01/25/22 Historical Provider, Ostomy Supplies (Skin Tac Adhesive Barrier Wipe) misc 1 each every 14 (fourteen) days. 06/23/22 Aniya Oviedo, LUMBER HACKER - SENIOR TECHNICAL ARCHITECT rosuvastatin (Crestor) 5 MG tablet Take 1 tablet by mouth at bedtime. 10/27/21 Historical Provider, triamcinolone (Kenalog) 0.1 % cream APPLY TOPICALLY TO THE AFFECTED AREA THREE TIMES DAILY DIRECTED 01/20/22 Historical Provider, Objective: Oxygen Delivery: VITALS: BP (!) 91/33 Pulse 100 Temp 36.8 C (98.2 F) (Temporal) Resp 14 Wt 95.3 kg (210 lb) SpO2 99% BMI 25.56 kg/m CURRENT PULSE OXIMETRY: SpO2: 99 % Review of Systems Constitutional: Positive for fatigue. Negative for chills and fever. HENT: Negative for congestion, hearing loss and sore throat. Eyes: Positive for visual disturbance (blurry vision). Negative for photophobia, discharge and redness. Respiratory: Positive for shortness of breath. Negative for cough and chest tightness. Cardiovascular: Positive for leg swelling. Negative for chest pain. Gastrointestinal: Positive for nausea. Negative for abdominal pain, constipation, diarrhea and vomiting. Endocrine: Positive for polydipsia and polyuria. Negative for polyphagia. Genitourinary: Negative for difficulty urinating and dysuria. Musculoskeletal: Negative for arthralgias, gait problem and myalgias. Skin: Negative for wound. Positive for enlarging and painful cyst/boil over left upper back Neurological: Positive for light-headedness. Negative for syncope and headaches. Psychiatric/Behavioral: Negative for confusion. Constitutional: General Appearance [x]WDWN []Obese []Cachectic []Thin []Ill Eyes: Inspection of Pupils/Irises Pupils round and react: [x]Yes []No Sclera: []Icteric [x]Non-Icteric Inspection of Conjunctiva/Lids Conjunctiva: []Injected [x]Non-Injected Lids: [x]Intact []Lesion Present ENT/Mouth: External Inspection of ears/nose [x] Normal [] Scar/Lesion/Mass Inspection of teeth/lips/gums Dentition: [x][place] Teeth []Dentures Lips/Gums: [x]Intact []Lesion Present Mucosa: [x][place] []Moist [x]Dry Dark red blood noted over teeth and gums, no lesion or active bleeding noted Neck: External Appearance Overall Appearance: [x]Normal []Lesion/Mass/Crepitus Present Trachea midline: [x]Yes []No Thyroid [x]Normal []Enlarged []Tender []Mass []Absent Respiratory: Respiratory effort []Labored [x]Non-Labored [] Mechanically-Ventilated Auscultation [x]Clear []Crackles []Wheezes [][place] Cardiovascular: Auscultation Rate: [x]Regular []Irregular []Tachycardia []Bradycardia Rhythm: [x]Regular []Irregular Murmur: [x]Present []Absent Extremities Peripheral Edema: [x]Present (1+ BLE+) []Absent Varicosities: []Present []Absent Gastrointestinal: Abdomen Palpation: [x]Soft []Firm []Tender [x]Non-Tender []Distended [x]Non-distended Mass: []Present []Absent Bowel Sounds: [x]Present []Absent Hernia: []Present []Absent Liver/Spleen: []Hepatosplenomegaly []Organomegaly Absent Musculoskeletal: Inspection of Digits and Nails Cyanosis: []Present [x]Absent Clubbing: []Present [x]Absent Ischemia: []Present []Absent Infection: []Present []Absent Extremities LEONARD Equally: Except ([]RUE []RLE []LUE []LLE) Strength/Tone: Intact and Normal ([x]RUE [x]RLE [x]LUE [x]LLE) Skin: Inspection []Normal []Rash []Lesion []Ulcer Palpation [x]Warm []Cool [x]Dry []Clammy []Nodules []Induration []Skin-tightening Cap-Refill: [x] <3 sec [] >3 seconds (delayed) 5x5cm palpable mass left upper back, no drainage, trace localized erythema Neurologic: GCS EYE: 4 - Opens spontaneously GCS MOTOR: 6 - Obeys commands for movement GCS VERBAL: 5 - Oriented to person, place, time Total GCS: 15 [x] Sensation grossly intact Psych: Mental Status Alert: [x]Yes [] No Oriented: []x0 []X1 []X2 [x]x3 Mood/Affect []Normal []Flat [x]Agitated []Depressed []Anxious []Calm []Sedated [x]NAD [facility] within last 24 hours- BMP: Recent Labs 08/25/221745 NA 130* K 5.3* CL 93* CO2 14* BUN 16 CREATININE 1.30* CALCIUM 8.9 MG 1.4* LFTs: Recent Labs 08/25/221745 AST 27 ALT 18 PROT 6.5 ALBUMIN 4.0 BILITOT 1.2 ALKPHOS 118 Glucose: Recent Labs 08/25/22 1716 08/25/22 17408/25/22 1941 GLUCOSE -- 650* -- POCGLU >450* -- >450* BHYDRXBUT -- 81.50* -- Procal: No results for input(s): PROCAL in the last 72 hours. CBC: No results for input(s): WBC, HGB, HCT, PLT, MCV, RDW in the last 72 hours. ABGs: No results for input(s): PHART, YQX6MEO, PO2ART, ZEI5WSR, SO2ART, M1MYZYTA in the last 72 hours. Lactic Acid: Recent Labs 08/25/221745 LACTATE 4.2* INR: No results for input(s): INR in the last 72 hours. Cardiac Injury Profile: Recent Labs 08/25/221745 TROPONINI <0.012 Labs in Last 3 months: Lab Results Component Value Date TSH 2.408 06/18/2019 Microbiology- Urine Cx: Lab Results Component Value Date URINECX Normal urogenital meek present 05/17/2022 Blood Cx: No results found for: BLOODCX Sputum Cx: No results found for: RESPCULT Gram Stain: No results found for: LABGRAM PNA PCR: No results found for: HUMANMETAPNE COVID19: No results found for: COVID19 Legionella Ag: No results found for: LEGIONELLAPN Strep Ag: No results for input(s): STREPPNEUMO in the last 72 hours. 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 overweight BMI 25-29.9 Disposition: left AMA from ED Time spent preparing to see the patient, obtaining/reviewing separately obtained history, completing an appropriate medical examination of the patient, ordering medications/tests/procedures, documenting clinical information on the EMR, and/or coordinating care is an initial visit: 90 minutes (LevelIII). Discussed with Dr. Louis. [facility] [id number] Consult note* Arianna Hurtado PA-C - 08/25/2022 7:57 PM EST Images from the original note were not included. Internal Medicine: MICU Initial Consult Name: Luisito Zhong : 1980(42 y.o.) Date: 08/25/22 Attending: Dr. Barba Subjective: Chief Complaint: Light headedness HPI: 42yoM w/ PMHx T1DM, subvalvular /subaortic membrane s/p SAVR, TR s/p TV repair, hypothyroidism, anxiety, depression, tobacco use, and former polysubstance abuse (EtOH, cocaine, marijuana - in remission) who presented to [facility] ED on 08/25/22 for light-headedness. States he lost the dross skimmer for his insulin pump and it has not been working since Tuesday, has been bolusing himself with humalog (~20u) every couple of hours but does not know what his blood sugars have been because his home glucometer has also not been functioning. Recently switched from [facility] to [facility], reports that he hasbeen unable to get ahold of either office. C/o fatigue, polyuria, polydypsia, nausea, poor PO intake, and SOB x4 as well as a cyst/boil on his back which has been enlarging and has become increasingly painful. Today became very light-headed while driving prompting presentation to ED. On arrival to ED T 98.2F, HR 109, RR 28, BP 92/45, SpO2 97% on RA. Labs significant for Na 130, K 5.3, SCr 1.3, BG 650, HCO3 14, AG 23, BHB 81.5, Hgb A1c 9.8, lactate 4.2, VBG 7.349/24.3/39. Treated with 3L NS. ICU consulted for further evaluation and management. Initially planning to admit patient to ICU and initiate insulin drip for DKA; however, while still in ED patient refused admission to ICU, stated that he was leaving AMA, refusing further treatment. Stated his doctor called him in a prescription and that he would follow up with his own Thermodynamic Physicist. A&O x4 at the time. Indicated understanding of the risks of leaving AMA up to and includingdeath. Past Medical History: Diagnosis Date Anxiety Aortic stenosis Carpal tunnel syndrome 2018 right Cocaine abuse (HCC) Depression Diabetes mellitus type 1 (HCC) 1984 Hyperlipidemia Thyroid disease Past Surgical History: Procedure Laterality Date CARDIAC SURGERY 01/26/2022 CARPAL TUNNEL RELEASE ELBOW SURGERY Right 2018 cubital tunnel syndrome HIP SURGERY Right OTHER SURGICAL HISTORY 12/20/2018 resection of LV outflow tract obstruction-subaortic valve membrane OTHER SURGICAL HISTORY Left 11/30/2018 Carpel Tunnel SHOULDER SURGERY Left 2013 adhesive capsulitis CHASE and arthroscopy Family History Problem Relation Name Age of Onset Colon cancer Maternal Grandmother No Known Problems Father No Known Problems Mother Other ([id number]) Sister MS Heart disease Paternal Grandmother Social History Socioeconomic History Marital status: Single Spouse name: Not on file Number of children: Not on file Years of education: Not on file Highest education level: Not on file Occupational History Not on file Tobacco Use Smoking status: Every Day Packs/day: 0.50 Types: Cigarettes Smokeless tobacco: Never Substance and Sexual Activity Alcohol use: Not Currently Drug use: Yes Types: Cocaine Comment: few slips ups recently Sexual activity: Not on file Other Topics Concern Not on file Social History Narrative Not on file Social Determinants of Health Financial Resource Strain: Not on file Food Insecurity: Not on file Transportation Needs: Not on file Physical Activity: Not on file Stress: Not on file Social Connections: Not on file Intimate Partner Violence: Not on file Housing Stability: Not on file Allergies Allergen Reactions Hydromorphone Itching Tramadol Other reaction(s): Other: See Comments Burning skin Burning skin Prior to Admission medications Medication Sig Start Date End Date Taking? Authorizing Provider Acetaminophen Extra Strength 500 MG tablet 09/18/21 Historical Provider, albuterol 108 (90 Base) MCG/ACT inhaler Inhale 2 puffs. 09/16/20 Historical Provider, aspirin 81 MG EC tablet Take 81 mg by mouth in the morning. Historical Provider, bacitracin 500 UNIT/GM ointment 10/29/21 Historical Provider, cholecalciferol (Vitamin D-3) 50 MCG (2000 UT) tablet Take 1 tablet by mouth in the morning. 10/12/21Historical Provider, ciclopirox (Loprox) 0.77 % cream 02/22/22 Historical Provider, Continuous Blood Gluc Sensor (FreeStyle [place] 2 Sensor) misc 1 Device every 14 (fourteen) days. 07/15/22 Aniya Oviedo, LUMBER HACKER - SENIOR TECHNICAL ARCHITECT Continuous Blood Gluc Transmit (Dexcom G6 transmitter) misc Change every 90 days Historical Provider, doxycycline (Vibra-Tabs) 100 MG tablet Take 100 mg by mouth in the morning and 100 mg before bedtime. 02/09/22 Historical Provider, DULoxetine (Cymbalta) [address] capsule Take 30 mg by mouth in the morning. 12/04/21 Historical Provider, escitalopram (Lexapro) 20 MG tablet Take 1 tablet by mouth in the morning. 07/22/20 Historical Provider, fluticasone (Flonase) 50 MCG/ACT nasal spray Administer 1 spray into affected nostril(s). 07/22/21 Historical Provider, Glucose Blood (Blood Glucose Test) strip Test 5 times a day & as needed for symptoms of irregular blood glucose. 08/05/20 Historical Provider, glucose blood (OneTouch Verio) test strip Test 4 times per day. DX:E10.9 05/24/22 Omayra Mitchell MD ibuprofen 600 MG tablet 09/18/21 Historical Provider, ibuprofen 800 MG tablet Take 800 mg by mouth every 8 hours as needed. 04/04/19 Historical Provider, insulin lispro (HumaLOG) 100 UNIT/ML injection Inject insulin continuous via Insulin Pump. Strength: 100 UNIT/ML 06/01/22 RIC Stanford CNP levothyroxine (Synthroid, Levoxyl) 125 MCG tablet TAKE ONE TABLET BY MOUTH EVERY MORNING ON EMPTY STOMACH Strength: 125 mcg 06/01/22 RIC Stanford CNP loratadine (Claritin) 10 MG tablet Take 10 mg by mouth in the morning. 12/14/21 Historical Provider, metoprolol tartrate (Lopressor) 50 MG tablet Take 1 tablet by mouth in the morning and at bedtime. 03/10/22 Historical Provider, mupirocin (Bactroban) 2 % ointment 01/25/22 Historical Provider, Ostomy Supplies (Skin Tac Adhesive Barrier Wipe) misc 1 each every 14 (fourteen) days. 06/23/22 RIC Stanford CNP rosuvastatin (Crestor) 5 MG tablet Take 1 tablet by mouth at bedtime. 10/27/21 Historical Provider, triamcinolone (Kenalog) 0.1 % cream APPLY TOPICALLY TO THE AFFECTED AREA THREE TIMES DAILY DIRECTED 01/20/22 Historical Provider, Objective: Oxygen Delivery: VITALS: BP (!) 91/33 Pulse 100 Temp 36.8 C (98.2 F) (Temporal) Resp 14 Wt 95.3 kg (210 lb) SpO2 99% BMI 25.56 kg/m CURRENT PULSE OXIMETRY: SpO2: 99 % Review of Systems Constitutional: Positive for fatigue. Negative for chills and fever. HENT: Negative for congestion, hearing loss and sore throat. Eyes: Positive for visual disturbance (blurry vision). Negative for photophobia, discharge and redness. Respiratory: Positive for shortness of breath. Negative for cough and chest tightness. Cardiovascular: Positive for leg swelling. Negative for chest pain. Gastrointestinal: Positive for nausea. Negative for abdominal pain, constipation, diarrhea and vomiting. Endocrine: Positive for polydipsia and polyuria. Negative for polyphagia. Genitourinary: Negative for difficulty urinating and dysuria. Musculoskeletal: Negative for arthralgias, gait problem and myalgias. Skin: Negative for wound. Positive for enlarging and painful cyst/boil over left upper back Neurological: Positive for light-headedness. Negative for syncope and headaches. Psychiatric/Behavioral: Negative for confusion. Constitutional: General Appearance [x]WDWN []Obese []Cachectic []Thin []Ill Eyes: Inspection of Pupils/Irises Pupils round and react: [x]Yes []No Sclera: []Icteric [x]Non-Icteric Inspection of Conjunctiva/Lids Conjunctiva: []Injected [x]Non-Injected Lids: [x]Intact []Lesion Present ENT/Mouth: External Inspection of ears/nose [x] Normal [] Scar/Lesion/Mass Inspection of teeth/lips/gums Dentition: [x][place] Teeth []Dentures Lips/Gums: [x]Intact []Lesion Present Mucosa: [x][place] []Moist [x]Dry Dark red blood noted over teeth and gums, no lesion or active bleeding noted Neck: External Appearance Overall Appearance: [x]Normal []Lesion/Mass/Crepitus Present Trachea midline: [x]Yes []No Thyroid [x]Normal []Enlarged []Tender []Mass []Absent Respiratory: Respiratory effort []Labored [x]Non-Labored [] Mechanically-Ventilated Auscultation [x]Clear []Crackles []Wheezes [][place] Cardiovascular: Auscultation Rate: [x]Regular []Irregular []Tachycardia []Bradycardia Rhythm: [x]Regular []Irregular Murmur: [x]Present []Absent Extremities Peripheral Edema: [x]Present (1+ BLE+) []Absent Varicosities: []Present []Absent Gastrointestinal: Abdomen Palpation: [x]Soft []Firm []Tender [x]Non-Tender []Distended [x]Non-distended Mass: []Present []Absent Bowel Sounds: [x]Present []Absent Hernia: []Present []Absent Liver/Spleen: []Hepatosplenomegaly []Organomegaly Absent Musculoskeletal: Inspection of Digits and Nails Cyanosis: []Present [x]Absent Clubbing: []Present [x]Absent Ischemia: []Present []Absent Infection: []Present []Absent Extremities LEONARD Equally: Except ([]RUE []RLE []LUE []LLE) Strength/Tone: Intact and Normal ([x]RUE [x]RLE [x]LUE [x]LLE) Skin: Inspection []Normal []Rash []Lesion []Ulcer Palpation [x]Warm []Cool [x]Dry []Clammy []Nodules []Induration []Skin-tightening Cap-Refill: [x] <3 sec [] >3 seconds (delayed) 5x5cm palpable mass left upper back, no drainage, trace localized erythema Neurologic: GCS EYE: 4 - Opens spontaneously GCS MOTOR: 6 - Obeys commands for movement GCS VERBAL: 5 - Oriented to person, place, time Total GCS: 15 [x] Sensation grossly intact Psych: Mental Status Alert: [x]Yes [] No Oriented: []x0 []X1 []X2 [x]x3 Mood/Affect []Normal []Flat [x]Agitated []Depressed []Anxious []Calm []Sedated [x]NAD [facility] within last 24 hours- BMP: Recent Labs 08/25/22 1746 NA 130* K 5.3* CL 93* CO2 14* BUN 16 CREATININE 1.30* CALCIUM 8.9 MG 1.4* LFTs: Recent Labs 08/25/22 1746 AST 27 ALT 18 PROT 6.5 ALBUMIN 4.0 BILITOT 1.2 ALKPHOS 118 Glucose: Recent Labs 08/25/22 1716 08/25/22 1746 08/25/22 1941 GLUCOSE -- 650* -- POCGLU >450* -- >450* BHYDRXBUT -- 81.50* -- Procal: No results for input(s): PROCAL in the last 72 hours. CBC: No results for input(s): WBC, HGB, HCT, PLT, MCV, RDW in the last 72 hours. ABGs: No results for input(s): PHART, ZTQ3MRV, PO2ART, KIN5WUB, SO2ART, Y7AABVLH in the last 72 hours. Lactic Acid: Recent Labs 08/25/22 1746 LACTATE 4.2* INR: No results for input(s): INR in the last 72 hours. Cardiac Injury Profile: Recent Labs 08/25/22 1746 TROPONINI <0.012 Labs in Last 3 months: Lab Results Component Value Date TSH 2.408 06/18/2019 Microbiology- Urine Cx: Lab Results Component Value Date URINECX Normal urogenital meek present 05/17/2022 Blood Cx: No results found for: BLOODCX Sputum Cx: No results found for: RESPCULT Gram Stain: No results found for: LABGRAM PNA PCR: No results found for: HUMANMETAPNE COVID19: No results found for: COVID19 Legionella Ag: No results found for: LEGIONELLAPN Strep Ag: No results for input(s): STREPPNEUMO in the last 72 hours. 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 overweight BMI 25-29.9 Disposition: left AMA from ED Time spent preparing to see the patient, obtaining/reviewing separately obtained history, completing an appropriate medical examination of the patient, ordering medications/tests/procedures, documenting clinical information on the EMR, and/or coordinating care is an initial visit: 90 minutes (LevelIII). Discussed with Dr. Louis. documented in this [place] [id number] Hospital Discharge instructions* Discharge Instructions* RIC Khan CNP - 08/25/2022 7:56 PM EST You need to call your portfolio manager through [facility] or [facility] to get your pump fixed * Attachments The following attachments cannot be sent through Care Everywhere. * How to Prevent High Blood Sugar Emergencies in Diabetes (Algerian) * Diabetic Ketoacidosis Discharge Instructions (Algerian) documented in this [place] [id number] Emergency department Note* JONY Arrieta - 08/25/2022 6:16 PM EST Guided mom back to see pt. JONY Arrieta 08/25/22 [id number] Emergency department Triage note* Joseline Rubin RN - 08/25/2022 5:10 PM EST Pt reports that he felt like he was going to pass out and was unsure if his sugar was high or low. Pt states his insulin pumps battery 3 days ago and has not monitored. Pt presents to triage with polar pop. BGT in triage reads HIGH [id number] Miscellaneous Notes* Result Encounter Note - Darío Felix MD - 08/25/2022 5:10 PM EST Culture result reviewed. No further treatment needed documented in this [address]15-2023 Physician Emergency department Note* Dulce Maria Barba MD - 08/25/2022 5:10 PM EST Emergency Department Encounter [facility] ED Patient: Luisito Zhong : 1980 Date of Evaluation: 08/25/2022 ED Supervising Physician: DULCE MARIA BARBA MD I independently examined and evaluated Luisito Zhong. This will serve as my Supervisory note and shared attestation. I did perform a substantive portion of the visit including all aspects of the Medical Decision Making. I wore appropriate PPE for the entirety of this encounter. History: In brief, Luisito Zhong is a 42 y.o. male that presents to the emergency department complaining offeeling weak and tired. The patient states that he lost the dross skimmer to his insulin pump. He has notbeen checking his blood sugars. He does not know what their levels have been. He states that since yesterday he has had nausea and vomiting. He feels weak and tired. He has been admitted to the hospital before for diabetic ketoacidosis. Focused exam: On examination the patient is a middle-aged male found lying on a cart. He is alert and oriented. He is hypotensive as well as is tachycardic. He appears ill. HEENT exam demonstrates oral mucosa membranes to be dry. Neck is supple. Chest is clear. Normal cardiac exam. Abdomen is soft flat and is nontender. Bowel sounds are normal active. Differential Diagnosis: Differential diagnosis includes lactic acidosis, diabetic ketoacidosis, dehydration, acute coronarysyndrome, metabolic abnormality. ED testing and evaluation will be obtained to help differentiate these diagnostic possibilities anddetermine the most likely cause. Diagnostic testing undertaken, as well as those tests considered but not ordered: Laboratory work is obtained including blood gas analysis and serum ketones. Disposition will be based on results of diagnostic testing and reassessment. EKG interpretation: An EKG is obtained. It demonstrates a sinus tachycardia with a rate of 102. QRS axis is 97 degrees.Biatrial enlargement is present. No acute ST segment findings are found. There is no evidence of anST elevation [place]. CRITICAL CARE TIMETotal Critical Care time was 30 minutes, excluding separately reportable procedures. There was a high probability of clinically significant/life threatening deterioration in the patient's condition which required my urgent intervention. The patient's differential diagnosis included diabetic ketoacidosis, metabolic abnormality, lactic acidosis, dehydration. The critical care time was spent in initially evaluating the patient, discussing the patient's care with family, reviewing previous records, developing a diagnostic plan, reviewing and integrating test results into the patient's recommended treatment plan, as well as interacting with physicians who will be managing the patient after the emergency department. Brief ED course/MDM: In the emergency department the patient is given intravenous fluids. He is administered intravenous insulin as well. At this time it appears that the patient will require admission. Sources of History: I evaluated other historical sources including previous outpatient records and admission records. Patient is aware of care plan. All diagnostic, treatment, and disposition decisions were made by myself in conjunction with the EFE. For all further details of the patient's emergency department visit, please see their documentation. (Comment: Please note this report has been produced using speech recognition software and may contain errors related to that system including errors in grammar, punctuation, and spelling, as well as words and phrases that may be inappropriate. If there are any questions or concerns please feel freeto contact the dictating provider for clarification.) DULCE MARIA BARBA MD [facility] Dulce Maria Barba MD 08/25/22 1739 Dulce Maria Barba MD 08/25/22 1739 Dulce Maria Barba MD 08/25/22 1802 [facility] Phone: [phone] 729-839102-15-2023 Progress note* Result Encounter Note - Darío Felix MD - 08/25/2022 5:10 PM EST Culture result reviewed. No further treatment needed [facility] Phone: [phone]) 224-787902-15-2023 Miscellaneous Notes* Telephone Encounter - Alyssa Oswald MA - 08/25/2022 4:38 PM EST Attempted to contact patient to notify that Tresiba pen was sent in back phone number on file says the call could not go through Alyssa Oswald CMA * Addendum Note - Dwayne Araujo APRN.CNP - 08/25/2022 4:34 PM ESTAddended by: DWAYNE ARAUJO on: 08/25/2022 04:34 PM Modules accepted: Orders * Telephone Encounter - Dwayne Araujo APRN.CNP - 08/25/2022 4:33 PM EST Sent in Tresiba pen Dwayne Araujo APRN, CNP * Telephone Encounter - Cheryl Jarquin MA - 08/25/2022 4:18 PM EST Patient left a message requesting a insulin pen for emergency incase his pump fails. Please advise [facility] History of Present illness Narrative* Junior Adhikrai RN - 08/02/2022 11:02 AM EST QOL Call Tracking Documentation Follow-Up Type: Phone Call Call Attempt: 1st Attempt Call Status: Unable to contact patient (Patient's phone number has been disconnected. Left voicemail for patient's mother) [facility] Miscellaneous Notes* Telephone Encounter - Anita Dan - 07/23/2022 1:52 PM EST Pt came into the [place] office picked up a sample stated he had to take the other off due to bleeding possible hitting it. He also stated he knows how to put it on and gave him a sharing code to get himself connected to our office and call or MyChart with any questions. Anita Dan July 23, 2022 1:54 PM * Telephone Encounter - Lakisha Agarwal - 07/23/2022 12:18 PM EST Pt is established with dwayne araujo in [place] they do not have any dexcom G6 sensors and they told him to call here to see if we have any he can get His # [phone] Lakisha Agarwal July 23, 2022 12:20 PM documented [facility] Instructions* Patient Instructions* Dwayne Araujo APRN.CNP - 07/21/2022 1:51 PM EST Continue current pump settings. Follow up in 6 weeks [facility] History of Present illness Narrative* Dwayne Araujo APRN.CNP - 07/21/2022 12:52 PM EST Kerry Jorge is a 42 year old male who presents for diabetes management. Timeline: Diagnosed with type 1 diabetes age 3. Established care with endocrinology 07/2022 Complications: Nephropathy:none Neuropathy:yes - controlled Diabetic retinopathy:none Current medications for diabetes: Pump Settings: -- Pump Type: tandem T-slim -- Insulin Type: humalog u100 Basal rate: Time 0000 0.900 0400 1.1 0700 1.5 1100 1.6 0600 1.4 2300 1.15 Total Basal: 32.3 Carb ratio: 10 Insulin Sensitivity: 35 Blood glucose target: 110 Insulin time: 5 Taking JAMIL/ARB:no Taking Statin:yes Previous medications for diabetes: medtronic pump in past Today's visit: Patient presents today to establish care. Went to [facility] prior. Last seen by them last month. Using tandem t-slim. He has had issues with dexcom, has been without a sensor for about the last week and using manual glucose entries. TIR:45% High:51% Low: 4% ___ Typical day/occupation: Not currently working Diet: typically eats 2x daily Exercise/activity: does walking 3-4x weekly Hypertension and lipids managed by PCP Denies frequent periods of hypoglycemia. Patient verbalized understanding of the signs and symptomsof hypoglycemia and its treatment options. Important Diabetes Lab History: HBA1C: 01/2022 8.1%. 07/2022 8.9% Thyroid Function Testin02/2022 TSH 1.898 Renal Function Testin01/2022 creatinine 0.90 GFR 109 Urine for Microalbumin: none on record Lipid Profile: 12/2021 TG 204 HDL 65 LDL 114 TG 127 Liver Profile: 01/2022 Alk Phos 96 AST 29 ALT 32 Important Diabetes Maintenance: Eye Exam: Patient educated to have ophthalmology visits at least once a year. Eye exam pending, sister is an eye dr and gives him dilated exams Foot Exam: Follows with a event av operator Review of Systems Constitutional: Negative for chills, diaphoresis, fever, malaise/fatigue and weight loss. HENT: Negative for congestion, nosebleeds and sore throat. Eyes: Negative for blurred vision, pain and discharge. Respiratory: Negative for cough, hemoptysis, sputum production, shortness of breath and wheezing. Cardiovascular: Negative for chest pain, palpitations, orthopnea and leg swelling. Gastrointestinal: Negative for abdominal pain, blood in stool, constipation, diarrhea, heartburn, nausea and vomiting. Genitourinary: Negative for dysuria, frequency, hematuria and urgency. Musculoskeletal: Negative for back pain, joint pain and myalgias. Skin: Negative for itching and rash. Neurological: Negative for dizziness, tingling, loss of consciousness and headaches. Endo/Heme/Allergies: Negative for polydipsia. Psychiatric/Behavioral: Negative for depression and suicidal ideas. The patient is not nervous/anxious and does not have insomnia. 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 Has been clean since 06/21/2018. Went to treatment at [facility] for 9 months Mitral regurgitation Murmur Rotator cuff syndrome 06/18/2015 Subaortic membrane with stenosis Tetrahydrocannabinol (THC) use disorder, mild, in sustained remission, in controlled environment, abuse Type 1 diabetes mellitus with diabetic polyneuropathy (HCC) PAST SURGICAL HISTORY Procedure Laterality Date HIP SURGERY HX Right PAST SURGICAL HISTORY OF Left shoulder scope PAST SURGICAL HISTORY OF 12/2018 aortic valve surgery to help open up REVISE MEDIAN N/CARPAL TUNNEL SURG Bilateral RT ELBOW CUBITAL TUNNEL ONLY Right SHOULDER SURGERY HX Right x4 FAMILY HISTORY Problem Relation Age of Onset No Known Problems Mother No Known Problems Father No Known Problems Sister No Known Problems Sister Cancer Maternal Grandmother Heart Attack Paternal Grandfather Social History Tobacco Use Smoking status: Former Packs/day: 1.00 Years: 24.00 Pack years: 24.00 Types: Cigarettes Quit date: 11/2021 Years since quittin.6 Smokeless tobacco: Never Tobacco comments: nicotine lozenges daily Substance Use Topics Alcohol use: Not Currently Drug use: No Comment: cocaine use in remission, last use 10/17/2014 Current Meds ibuprofen (MOTRIN) 800 mg tablet^Take 1 tablet by mouth every 8 hours as needed for pain or fever (specify).^Disp: 30 tablet^Rfl: 0 pzjydtlrbuk-cgvlcprii-uqelxqoz (TRELEGY ELLIPTA) 200-62.5-25 mcg inhalation powder^Inhale 1 Puff asinstructed once daily.^Disp: 60 Each^Rfl: 2 furosemide (LASIX) 40 mg tablet^Take 1 tablet by mouth once daily.^Disp: 7 tablet^Rfl: 0 VITAMIN D-3 50 mcg (2,000 unit) tablet^Take 1 tablet by mouth once daily.^Disp: ^Rfl: fluticasone (FLONASE) 50 mcg/actuation nasal spray^Use 1 [place] in the nose once daily as needed.^Disp: ^Rfl: ALLERGY RELIEF, LORATADINE, 10 mg tablet^Take 10 mg by mouth once daily.^Disp: ^Rfl: DULoxetine (CYMBALTA) 30 mg capsule^Take 30 mg by mouth once daily.^Disp: ^Rfl: metoprolol succinate ER (TOPROL XL) 50 mg 24 hr tablet^Take 50 mg by mouth twice daily.^Disp: ^Rfl: insulin lispro (HUMALOG KWIKPEN INSULIN) 100 unit/mL inpn^13-20 Units three times daily with meal^Disp: 5 Pen^Rfl: 0 escitalopram oxalate (LEXAPRO) 20 mg tablet^Take 1 tablet by mouth once daily.^Disp: 90 tablet^Rfl:0 levothyroxine (SYNTHROID) 150 mcg tablet^Take 1 tablet by mouth once daily.^Disp: 90 tablet^Rfl: 3 rosuvastatin (CRESTOR) 5 mg tablet^Take 1 tablet by mouth daily at bedtime.^Disp: 90 tablet^Rfl: 3 Blood-Glucose Sensor (DEXCOM G6 SENSOR) xenia^Change sensor every 10 days^Disp: 12 Each^Rfl: 1 Blood-Glucose Transmitter (DEXCOM G6 TRANSMITTER) xenia^Change transmitter every 90 days^Disp: 1 Each^Rfl: 3 clotrimazole (LOTRIMIN, CLOTRIM) 1 % cream^Apply 1 application to affected area twice daily for 14 days.^Disp: 45 g^Rfl: 0 Objective BP 120/81 Pulse 101 Ht 192.4 cm (6' 3.75) Wt 107.4 kg (236 lb 12.8 oz) SpO2 98% BMI 29.01 kg/m Physical Exam Constitutional: General: He is not in acute distress. Appearance: He is not ill-appearing. HENT: Head: Normocephalic and atraumatic. Eyes: General: No scleral icterus. Conjunctiva/sclera: Conjunctivae normal. Pupils: Pupils are equal, round, and reactive to light. Cardiovascular: Rate and Rhythm: Normal rate and regular rhythm. Heart sounds: Normal heart sounds. No murmur heard. Pulmonary: Effort: Pulmonary effort is normal. No respiratory distress. Breath sounds: Normal breath sounds. No wheezing or rales. Chest: Chest wall: No tenderness. Abdominal: General: There is no distension. Palpations: Abdomen is soft. Tenderness: There is no abdominal tenderness. There is no rebound. Musculoskeletal: General: No tenderness. Cervical back: Neck supple. Lymphadenopathy: Cervical: No cervical adenopathy. Skin: General: Skin is warm and dry. Findings: No rash. Neurological: Mental Status: He is alert and oriented to person, place, and time. Cranial Nerves: No cranial nerve deficit. Gait: Gait is intact. Psychiatric: Mood and Affect: Mood and affect normal. Cognition and Memory: Memory normal. Judgment: Judgment normal. Plan ASSESSMENT/PLAN: 1. Type 1 diabetes mellitus with hyperglycemia (HCC) - ICD9: 250.01, ICD10: E10.65 (primary diagnosis) A1c 8.9%. uncontrolled. High HbA1c is putting the pt at risk for complications/catastrophic event. This patient is new to me. Incomplete pump data as he has not had CGM. Refills placed and given sample dexcom in office today. He is using auto mode when has CGM. Will RTC in 6 weeks when he has been utilizing pump with CGM and see if adjustments can be made. - HEMOGLOBIN A1C (POC) - LEVOTHYROXINE 150 MCG TABLET - ROSUVASTATIN 5 MG TABLET - DEXCOM G6 SENSOR DEVICE - DEXCOM G6 TRANSMITTER DEVICE - ALBUMIN/CREAT RATIO RND UR - COMP METABOLIC PANEL - TSH BLD - T4 FREE/FREE THYROX - LIPID PANEL BASIC - CLOTRIMAZOLE 1 % TOPICAL CREAM 2. Insulin pump status - ICD9: V45.85, ICD10: Z96.41 continue 3. High risk medication use - ICD9: V58.69, ICD10: Z79.899 Insulin - continue via pump Plan of care: 1. HbA1C 8.9%, uncontrolled. 2. Medication changes: See below. Current medications for diabetes: Pump Settings: -- Pump Type: tandem T-slim -- Insulin Type: humalog u100 Basal rate: Time 0000 0.900 0400 1.1 0700 1.5 1100 1.6 0600 1.4 2300 1.15 Total Basal: 32.3 Carb ratio: 10 Insulin Sensitivity: 35 Blood glucose target: 110 Insulin time: 5 3. Total time in direct patient contact = 45 min. Greater than 50% of the time was spent in counseling and/or coordination of care. 4. Self-monitoring blood glucose log sheets were given to the patient. Patient instructed to fill them out and bring to the next visit. 5. Answered all questions. 6. Educated patient on therapeutic lifestyle changes. 7. Patient verbalized understanding of all the above instructions. 8. Due for labs: See orders. Some elements may have been copied from previous notes but have been updated where appropriate and all reflect current medical decision making from today Follow up: Return in about 6 weeks (around 09/01/2022). Dwayne Araujo CNP 07/21/2022 5:58 PM documented in this encounterC[facility]01-[facility]23 Telephone encounter Note * Telephone Encounter - Omayra Mitchell MD - 07/19/2022 4:49 PM EST Called and left call back number to call back. Thanks [facility] [id number] Miscellaneous Notes* Telephone Encounter - Omayra Mitchell MD - 07/19/2022 4:49 PM EST Called and left call back number to call back. Thanks * Telephone Encounter - Akiko Richard RN - 07/15/2022 7:22 PM EST S: Patient spoke with CAC nurse regarding medication issue. B: Glucose meter strips A: Pt states this matter has been resolved, but that he missed a phone call from Dr. Mitchell earlier tonight re: an issue at today's appt and he would like to speak with her if possible. R: Paged Dr. Mitchell: Advise pt she will call him tomorrow during office hours, send TE directly to her. Pt advised Dr. Mitchell will call him tomorrow; he states best time to call tomorrow would be sometime in the morning. Phone service may be not optimal in the afternoon. Please leave voice mail if necessary. No further needs at this time. Patient instructed to call back with new or worsening symptoms. Reason for Disposition [1] Follow-up call from patient regarding patient's clinical status AND [2] information urgent Pt returned call from Dr. Mitchell Protocols used: PCP Call - No Fjhuhy-MORKA-IS documented in this encounterSCleveland Clinic Akron [id number] Telephone encounter Note* Telephone Encounter - Akiko Richard RN - 07/15/2022 7:22 PM EST S: Patient spoke with CAC nurse regarding medication issue. B: Glucose meter strips A: Pt states this matter has been resolved, but that he missed a phone call from Dr. Mitchell earlier gustabo [facility]: [facility] and he would like to speak with her if possible. R: Paged Dr. Mitchell: Advise pt she will call him tomorrow during office hours, send TE directly to her. Pt advised Dr. Mitchell will call him tomorrow; he states best time to call tomorrow would be sometime in the morning. Phone service may be not optimal in the afternoon. Please leave voice mail if necessary. No further needs at this time. Patient instructed to call back with new or worsening symptoms. Reason for Disposition [1] Follow-up call from patient regarding patient's clinical status AND [2] information urgent Pt returned call from Dr. Mitchell Protocols used: PCP Call - No [id number] [facility] [id number] Telephone encounter Note* Telephone Encounter - Omayra Mitchell MD - 07/15/2022 5:33 PM EST Called and left a vm for patient to call back. [facility] [id number] Miscellaneous Notes* Telephone Encounter - Omayra Mitchell MD - 07/15/2022 5:33 PM EST Called and left a vm for patient to call back. * Telephone Encounter - Coby Freeman - 07/15/2022 4:56 PM EST Name of caller: Luisito Contact phone number: [phone] Relationship to Patient: patient Provider: Dr. Mitchell Practice: [facility] Chief Complaint/Reason for Call: Patient is stating that he wants to speak with Dr. Mitchell abouthis insulin refills and his conversation with Aniya Oviedo CNP from today. Please advise. Best time of day caller can be reached: Any Patient advised that office/PCP has 24-48 business hours to return their call: Yes documented in this encounterSCleveland Clinic Akron [id number] Telephone encounter Note* Telephone Encounter - Coby Freeman - 07/15/2022 4:56 PM EST Name of caller: Luisito Contact phone number: [phone] Relationship to Patient: patient Provider: Dr. Mitchell Practice: [facility] Chief Complaint/Reason for Call: Patient is stating that he wants to speak with Dr. Mitchell abouthis insulin refills and his conversation with Aniya Oviedo CNP from today. Please advise. Best time of day caller can be reached: Any Patient advised that office/PCP has 24-48 business hours to return their call: Yes [facility] [id number] Miscellaneous Notes* Telephone Encounter - Qian Harmon - 07/15/2022 4:11 PM EST Patient called requesting a prescription for Freestyle Carlton 2 Sensors be sent to # [id number] [facility] in [place], [place] Qian Harmon Diplomatic Courier II [facility] documented in this encounterC[facility]01-05-2023 Telephone encounter Note * Telephone Encounter - RIC Stanford CNP - 07/15/2022 3:06 PM EST Luisito arrived at the office today reporting that he was still having difficulties with dexcom andwanted to switch to Carlton. Patient's phone is not compatible and Counseled patient that Tandem pumpis not compatible with Carlton Identified that patient had an appointment With [facility] endocrinology 07/01/2022. Patient requested Dexcom samples for failed Dexcom G6 from [facility] endocrinology 06/25/2022 and 06/28/2022. Patient also came to the [facility] end[facility] in [place] 06/28/2022 requesting Dexcom sample. Informed patient that we did not have any samples available patient has already received 8 samples from the [facility] endocrinology in the month of June. On patient had a telephone encounter with [facility] endocrinology requesting 70/30 insulin as he did well on this before switching pump. Patient was prescribed 70/30 insulin 45 units twice daily asked patient to use insulin for sliding scale. Patient was sent 10 days prescription andasked to get in touch with primary portfolio manager as soon as tomorrow. Patient called [facility] endocrinology 06/30/2022 requesting Humulin 70-30 vials 90-day supply. Patient requested to have [facility] pharmacy fill this prescription. Dispense report shows that patient also when it went [facility] and received Toujeo max 40 units subcutaneous daily 12 mL. Patient was also prescribed from [facility] Humalog 18 units 3 times daily AC and this was dispensed on 06/29/2022. Patient comes to office today requesting carlton sensor as Dexcom has not been working well for him causing skin sensitivity and rash. Informed patient via telephone that I do not feel it is safe for him to be on an insulin pump at this time as I do not know what his blood sugars are showing and I do notknow what insulin he is taking. Patient respectfully disagrees and will seek a second opinion with [facility] endocrinology. Patient already has an appointment scheduled with [facility] endocrinology. Patient note from 07/13/22 states: Patient called stating he has been trying to set up with a different Endo that is closer to home for him but in the meantime he is having issues with insulin and his sugars are incredibly high. Patient stated Urgent Care will no prescribe him insulin. Patient is requesting Tresiba insulin and insurance will cover 90 day supply. Patient telling me that he is using insulin pump but notes to [facility] show differently. Advised patient that I feel he should not be on an insulin pump. I would like to stop the insulin pumpand start patient on basal/bolus insulin with 4 injections daily and basic blood sugar checks with a glucometer since he has had so many difficulties with the insulin pump and dexcom. I do not have arecent download of his blood sugars and do not know what medication he is taking. The dispense report shows that he received mulitple types of insulin including humalog, humulin 70/30, Toujeo, tresiba within the month of . Patient reports he will seek a second opinion as he wishes to remain on the insulin pump. [facility] [id number] Miscellaneous Notes* Telephone Encounter - RIC Stanford CNP - 07/15/2022 3:06 PM EST Luisito arrived at the office today reporting that he was still having difficulties with dexcom andwanted to switch to Carlton. Patient's phone is not compatible and Counseled patient that Tandem pumpis not compatible with Carlton Identified that patient had an appointment With [facility] endocrinology 07/01/2022. Patient requested Dexcom samples for failed Dexcom G6 from [facility] endocrinology 06/25/2022 and 06/28/2022. Patient also came to the [facility] end[facility] in [place] 06/28/2022 requesting Dexcom sample. Informed patient that we did not have any samples available patient has already received 8 samples from the [facility] endocrinology in the month of June. On patient had a telephone encounter with [facility] endocrinology requesting 70/30 insulin as he did well on this before switching pump. Patient was prescribed 70/30 insulin 45 units twice daily asked patient to use insulin for sliding scale. Patient was sent 10 days prescription andasked to get in touch with primary portfolio manager as soon as tomorrow. Patient called [facility] endocrinology 06/30/2022 requesting Humulin 70-30 vials 90-day supply. Patient requested to have [facility] fill this prescription. [facility] units subcutaneous daily 12 mL. Patient was also prescribed from [facility] Humalog 18 units 3 times daily AC and this was dispensed on 06/29/2022. Patient comes to office today requesting carlton sensor as Dexcom has not been working well for him causing skin sensitivity and rash. Informed patient via telephone that I do not feel it is safe for him to be on an insulin pump at this time as I do not know what his blood sugars are showing and I do notknow what insulin he is taking. Patient respectfully disagrees and will seek a second opinion with [facility] endocrinology. Patient already has an appointment scheduled with [facility] endocrinology. Patient note from 07/13/22 states: Patient called stating he has been trying to set up with a different Endo that is closer to home for him but in the meantime he is having issues with insulin and his sugars are incredibly high. Patient stated Urgent Care will no prescribe him insulin. Patient is requesting Tresiba insulin and insurance will cover 90 day supply. Patient telling me that he is using insulin pump but notes to [facility] show differently. Advised patient that I feel he should not be on an insulin pump. I would like to stop the insulin pumpand start patient on basal/bolus insulin with 4 injections daily and basic blood sugar checks with a glucometer since he has had so many difficulties with the insulin pump and dexcom. I do not have arecent download of his blood sugars and do not know what medication he is taking. The dispense report shows that he received mulitple types of insulin including humalog, humulin 70/30, Toujeo, tresiba within the month of June/July. Patient reports he will seek a second opinion as he wishes to remain on the insulin pump. documented in this [facility]01-02-2023 Miscellaneous Notes* Telephone Encounter - Thais Phelps APRN.CNP - 07/12/2022 3:15 PM EST Patient has called office and returned to office multiple times. Is not happy with how script for Trelegy was sent to pharmacy. Wanted 90 days. 90 days was sent- 30days with 2 refills. Is not happy with this, wants all 90 days now. I am not changing order again on my end. This is [facility] not primary care. Patient has 30 daysand can refill 2 times. Also, has follow up with primary care. documented in this encounterC[facility]01-02-2023 Miscellaneous Notes* Addendum Note - Thais Phelps APRN.CNP - 07/12/2022 12:32 PM ESTAddended by: THAIS PHELPS on: 07/12/2022 12:32 PM Modules accepted: Orders * Addendum Note - Thais Phelps APRN.CNP - 07/12/2022 12:27 PM ESTAddended by: THAIS PHELPS on: 07/12/2022 12:27 PM Modules accepted: Orders documented in this encounterCleveland Clinic [facility]01-02-2023 History of Present illness Narrative* Thais Phelps APRN.CNP - 07/12/2022 11:47 AM EST This note was created using [employer]. Subjective Luisito Zhong is a 42 year old male. HPI by patient: Luisito Zhong is a 42 year old presenting to the office with the complaint of dental pain. Started approximately 1 week prior. Associated symptoms include swelling to the right upper/lower jaw. Last dental appointment was about 9 months prior. States this is not an area that is known to need work done. Denies fevers, chills, drainage from the site, difficulty breathing, and difficulty swallowing. OTC not used. No antibiotic use in the last 60 days. Also, asking for refills on all his diabetic meds and his inhaler. States I know [facility] and Urgent Cares can be a little funny about refilling insulin. ALLERGIES Hydromorphone Itching Tramadol Other: See Comments Comment:Burning skin Family History Reviewed Including Cardiac Diseases, Psychiatric Diseases, & Substance Abuse Problem: No Known Problems Relation: Mother Age of Onset: (Not Specified) Problem: No Known Problems Relation: Father Age of Onset: (Not Specified) Problem: No Known Problems Relation: Sister Age of Onset: (Not Specified) Problem: No Known Problems Relation: Sister Age of Onset: (Not Specified) Problem: Cancer Relation: Maternal Grandmother Age of Onset: (Not Specified) Problem: Heart Attack Relation: Paternal Grandfather Age of Onset: (Not Specified) Social History Tobacco Use Smoking status: Former Packs/day: 1.00 Years: 24.00 Pack years: 24 Types: Cigarettes Quit date: 11/2021 Years since quittin.6 Smokeless tobacco: Never Tobacco comments: nicotine lozenges daily Alcohol use: Not Currently Drug use: No Comment: cocaine use in remission, last use 10/17/2014 Active Ambulatory Problems Impingement syndrome of right shoulder Date Noted: 08/13/2015 Type 1 diabetes mellitus with diabetic polyneuropathy (HCC) Acquired hypothyroidism Former smoker Subaortic membrane Mitral regurgitation Alcohol abuse History of drug abuse ([facility]) Date Noted: 04/04/2019 Anxiety and depression Date Noted: 04/04/2019 Dyspnea Date Noted: 12/31/2021 Dyslipidemia Date Noted: 12/31/2021 Obesity (BMI 30-39.9) Date Noted: 12/31/2021 Discharge planning issues Date Noted: 01/22/2022 Pre-op testing Date Noted: 01/22/2022 Atelectasis Date Noted: 01/26/2022 Post-op pain Date Noted: 01/26/2022 SOB (shortness of breath) Date Noted: 01/26/2022 Tricuspid regurgitation Date Noted: 01/26/2022 Aortic regurgitation Date Noted: 01/26/2022 Obesity, Class II, BMI 35-39.9 Date Noted: 01/27/2022 Hypervolemia Date Noted: 01/28/2022 Encounter for support and coordination of transition of care Date Noted: 01/28/2022 Nicotine use disorder, F17.2 Date Noted: 01/31/2022 Resolved Ambulatory Problems HTN (hypertension) Past Medical History: No date: Cocaine abuse in remission ([facility]) No date: Ex-smoker No date: Ex-smoker 03/12/2014: Frozen shoulder No date: Murmur 06/18/2015: Rotator cuff syndrome No date: Tetrahydrocannabinol (THC) use disorder, mild, in sustained remission, in controlled environment, abuse Review of Systems Constitutional: Negative. HENT: Positive for dental problem. Eyes: Negative. Respiratory: Negative. Cardiovascular: Negative. Gastrointestinal: Negative. Endocrine: Negative. Genitourinary: Negative. Musculoskeletal: Negative. Skin: Negative. Neurological: Negative. Objective BP 127/85 Pulse 79 Resp 16 Wt 134.3 kg (296 lb) SpO2 99% BMI 36.03 kg/m Physical Exam Vitals reviewed. Constitutional: General: He is not in acute distress. Appearance: He is not ill-appearing, toxic-appearing or diaphoretic. HENT: Nose: Nose normal. Right Sinus: No maxillary sinus tenderness or frontal sinus tenderness. Left Sinus: No maxillary sinus tenderness or frontal sinus tenderness. Mouth/Throat: Lips: [place]. Mouth: Mucous membranes are moist. Dentition: Abnormal dentition. Dental tenderness and dental caries present. Pharynx: Oropharynx is clear. Uvula midline. No oropharyngeal exudate, posterior oropharyngeal erythema or uvula swelling. Cardiovascular: Rate and Rhythm: Normal rate and regular rhythm. Pulmonary: Effort: Pulmonary effort is normal. Breath sounds: Normal breath sounds. Lymphadenopathy: Head: Right side of head: No submandibular or tonsillar adenopathy. Left side of head: No submandibular or tonsillar adenopathy. Cervical: No cervical adenopathy. Psychiatric: Behavior: Behavior is cooperative. Assessment and Plan (K04.7) Dental infection (primary encounter diagnosis) Plan: amoxicillin (AMOXIL) 875 mg tablet, ibuprofen (MOTRIN) 800 mg tablet (Z76.0) Medication refill Plan: bbqunniqjgr-akcmrqkzq-fvsepamj (TRELEGY ELLIPTA) 200-62.5-25 mcg inhalation powder (R06.02) SOB (shortness of breath) Plan: peataeiavdz-owdecxime-gozfnxdc (TRELEGY ELLIPTA) 200-62.5-25 mcg inhalation powder Amoxicillin for dental infection. Inhaler refill. Appears all the diabetic medications were just refilled on 07/07/22. There is no lab work done since summer. Referral to primary care. -OTC tylenol as directed on the bottle. May use OTC Ibuprofen if there is no underlying blood pressure/heart disease. -Make follow up with primary care for monitoring and resolution in symptoms, stop at the front deskto schedule. -Signs that warrant an ER evaluation: Sudden change/worsening in condition, lethargy, signs of dehydration, fever greater than 102 F thatis not responding to Tylenol or ibuprofen (Motrin, Advil), drooling, difficulty swallowing, difficulty breathing, shortness of breath, chest pain, evidence of airway compromise (tripod position, neck extension, retractions), seizures, changes in mental status, or other concerns. The patient will pursue further outpatient evaluation with the primary care physician or another Urgent Care/Express Care as outlined in the after visit summary. The patient is agreeable to this planof care and follow-up instructions have been explained in detail. The patient has received these instructions in written format and have expressed an understanding of the after visit summary. Medical Decision Making: Level: 3 - Low I spent a total of 20 minutes on the date of the service which included preparing to see the patient, nfku-zi-pmet patient care, completing clinical documentation, obtaining and/or reviewing separately obtained history, performing a medically appropriate examination, counseling and educating the pat ient/family/caregiver, and ordering medications, tests, or procedures. documented in this encounterCleveland Clinic [facility]01-02-2023 Instructions* Patient Instructions* Thais Phelps APRN.CNP - 07/12/2022 11:46 AM EST (K04.7) Dental infection (primary encounter diagnosis) Plan: amoxicillin (AMOXIL) 875 mg tablet, ibuprofen (MOTRIN) 800 mg tablet (Z76.0) Medication refill Plan: enledgnifkk-prxcqggdw-pwexuquk (TRELEGY ELLIPTA) 200-62.5-25 mcg inhalation powder (R06.02) SOB (shortness of breath) Plan: gymhmzmjbup-zkjpmoknv-dijginzi (TRELEGY ELLIPTA) 200-62.5-25 mcg inhalation powder Amoxicillin for dental infection. Inhaler refill. -OTC tylenol as directed on the bottle. May use OTC Ibuprofen if there is no underlying blood pressure/heart disease. -Make follow up with primary care for monitoring and resolution in symptoms, stop at the front deskto schedule. -Signs that warrant an ER evaluation: Sudden change/worsening in condition, lethargy, signs of dehydration, fever greater than 102 F thatis not responding to Tylenol or ibuprofen (Motrin, Advil), drooling, difficulty swallowing, difficulty breathing, shortness of breath, chest pain, evidence of airway compromise (tripod position, neck extension, retractions), seizures, changes in mental status, or other concerns. documented in this [facility]12-28-2022 Miscellaneous Notes* Telephone Encounter - Dot Nath Ma - 07/07/2022 2:24 PM EST The following approved medication requests have been transmitted electronically. Requested Prescriptions Signed Prescriptions Disp Refills insulin NPH-insulin regular injection 90 mL 0 Sig: Inject 45 Units subcutaneously before breakfast and 45 Units before dinner. 90 ml equals 9 vials Authorizing Provider: MIGUEL A AC documented in this [facility]12-22-2022 Miscellaneous Notes* Telephone Encounter - Cielo Bloom - 07/01/2022 1:23 PM EST No Show Documentation Luisito Zhong no showed for an appointment on 07/01/2022 with Dwayne Araujo APRN.QAMAR at 1pm. He was scheduled for a New Patient appointment. I called and spoke with the patient regarding his missed appointment. This is the patients first no show in the last 12 months. Letter mailed : Yes Is this the Third or Fourth No Show? No Cielo Bloom July 01, 2022 1:23 PM documented in this [facility]12-21-2022 Miscellaneous Notes* Telephone Encounter - Casey Swift MD - 06/30/2022 2:24 PM EST Approved medication requests have been transmitted electronically. Casey Swift MD documented in this [facility]12-20-2022 Miscellaneous Notes* Telephone Encounter - Wolfgang Sanchez MD - 06/29/2022 6:57 PM EST Called by NOC that patient had pump malfunction and does not have rescue plan. According to patient the total daily insulin use with pump is around 100-130 units; He prefers 70/30 insulin as he did very well on it before switching pump Will send a prescription for 70/30 insulin 45 units BID Asked patient to use lispro for SS Will send a 10 days prescription and patient is asked to get in touch with primary portfolio manager as soon as possible tomorrow. Wolfgang Deluca M.D. PGY-5, Endocrinology and Metabolism [place] documented in this encounterCleveland [facility]12-20-2022 Miscellaneous Notes* Telephone Encounter - Sonam Meek RN - 06/29/2022 5:55 PM EST Patient calling with medication/refill: Patient/caregiver requesting refill of insulin because his insulin pump is no longer functioning. Patient wants order to be called to [facility] pharmacy at [facility] Do you have enough medication to last until the office reopens? No. , and Have you contacted your pharmacy to ask for enough medication to get by until the office reopens? No. . Patient denies any new or worsening symptoms of which a provider is not aware:Yes. Paged diagnostic medical sonographer Endocrinology which NOC conferenced in with patient and ordered medications to last a week and patient is to follow up with provider for further GO TO THE EMERGENCY ROOM OR CALL 911 IF: * You develop any new symptoms * Your condition worsens * You are concerned or anxious about your condition for any other reason. If you have any questions, you can call Nurse lead pony rider back. documented in this encounterCleveland Clinic Mentor Hospital12-19-2022 Miscellaneous Notes* Telephone Encounter - Qian Harmon - 06/28/2022 2:21 PM EST Patient called looking to see if we had a sample kit because he lost all of his supplies. Lost connection with patient. Called back and spoke with his mom. She will let him know that it's at front desk monitor of 0 for pickup Qian Harmon Diplomatic Courier II [facility] documented in this encounterCleveland Clinic [facility]12-19-2022 Miscellaneous Notes* Telephone Encounter - Paty Iverson - 06/28/2022 2:17 PM EST I called and spoke to the patient. I discussed the channels that the patient could try to get a sample for his G6 Dexcom. He stated that he was aware and had exhausted all of them. I let him know that we did have a Dexcom sample that could be given to him, but not before he completed his appointment on 07-01-22. He stated his understanding. Paty Iverson June 28, 2022 2:21 PM * Telephone Encounter - Cielo Bloom - 06/28/2022 1:01 PM EST Patient left vm asking for a dexcom sample. Stating he needs sensor and transmitter. Called to advise he is not an established patient. Confirmed he has appt this week with Dwayne. Requested cb from Paty. Cielo Bloom June 28, 2022 1:02 PM * Telephone Encounter - Destinee Torres MA - 06/28/2022 12:17 PM EST Called pt and informed him that he is not yet established with our practice yet and we cannot give him a sample until he is seen. Once he sees Dwayne on 07/01/22 if he is still in need of a sensor and they do not have any in [place] I told him he can come to the POB and I will give him a sample. Pt communicated understanding. Destinee Torres.order checker packer processer * Telephone Encounter - Lakisha Agarwal - 06/28/2022 12:06 PM EST Ptdaugust farheen is seeing dwayne araujo 07 01 2022 and is in need of a dexcom 6 sample as he has issues with his he says he has spoken to erika and he is out also we dont have any samples could you help him? he states he was downto your office and you dont have any----this is weird situation his phone [phone] he asked me to contact downtown offices also to see if they have any samples I can send a msg to destinee and carlos but since he is seeing dwayne, I am sending to you first I doubt that destinee or carlos can help since he is not going there has called Destinee states she has sample there and she will call him Sending to Paty for review Lakisha Agarwal June 28, 2022 12:08 PM * Telephone Encounter - Lakisha Agarwal - 06/25/2022 2:16 PM EST Pt ankita de santiagoot been seen here that I can see in chart States he was seen by [facility] endocrinology at one time before cardiac issues Was given a Dexcom 6 by endo in [place] but is in this area and wanted to know if we would give hem a sample as , he states, a [facility] office had given one to him prior I could not find this in chart either I told him I would ask but I thought he would need ov first Lakisha Agarwal June 25, 2022 2:20 PM documented in this encounterCleveland Clinic [facility]10-26-2022 History of Present illness Narrative* Gely Rowland Research Coordinator - 05/05/2022 12:11 PM EDT QOL Call Tracking Documentation Follow-Up Type: Phone Call Call Attempt: 1st Attempt Call Status: Patient will complete in MyChart documented in this encounterCleveland Clinic Ment[facility]08-16-2022 Miscellaneous Notes* Telephone Encounter - Aniya Norwood RN - 02/23/2022 10:22 AM EDT [facility] Contact Center Inbound Phone Encounter DATE of SERVICE: 02/23/2022 TIME of SERVICE: 10:22 AM Status: Non-urgent, needs attention Service/Provider: Cardiac Surgery Roscoe Arias M.D. Reason for call: Pain Contact information: Fat[place] [phone] [address] [facility]: [facility] Comments: [facility] called for pt to get refill for Hydrocodone-Acetaminophen for pain in chest, shoulders and back at times. [facility] [place] is the pharmacy the facility uses. They lock up the medication and distribute. Their phone is [phone]. Janie is above from facility. Aniya Norwood RN Date of Resolution: 02/23/2022 Time of Resolution 10:22 AM documented in this encounterCleveland Clinic Ment[facility]08-10-2022 History of Present illness Narrative* Courtney Gabriel APRN.SENIOR TECHNICAL ARCHITECT - 02/17/2022 10:30 AM EDT Images from the original note were not included. [facility] [place] [facility] Department of Cardiovascular Medicine DEPARTMENT OF CARDIAC SURGERY OUTPATIENT VISIT DATE February 16, 2022 OUTPATIENT VISIT TYPE FOLLOW UP Luisito Zhong is a 41 year old male who is here for return post op follow up visit. Most recent Cardiac Surgery: S/P on 01/26/2022 * Roscoe Arias MD - Primary CTS OP REPORTS PROCEDURE(S): Aortic Valve Replacement Tricuspid Valve Repair Subaortic Memrane resection, Aortic root enlargement PREOPERATIVE DIAGNOSIS: Aortic Valve Regurgitation Tricuspid Regurgitation small aortic root HPI: Patient presents today for reoccuring msi wound. Allergies: ALLERGIES Allergen Reactions Hydromorphone Itching Tramadol Other: See Comments Burning skin Medications: Current Outpatient Medications Medication Sig HYDROcodone-acetaminophen (NORCO) 5-325 mg per tablet Take 1 tablet by mouth every 8 hours as needed for pain for up to 7 days. cyclobenzaprine (FLEXERIL) 5 mg tablet Take 2 tablets by mouth twice daily as needed. furosemide (LASIX) 40 mg tablet Take 1 tablet by mouth once daily. aspirin 81 mg chewable tablet Take 1 tablet by mouth once daily. albuterol HFA (PROVENTIL HFA, VENTOLIN HFA) 90 mcg/actuation inhaler Inhale 2 Puffs as instructed every 4 hours as needed. levothyroxine (SYNTHROID) 150 mcg tablet Take 150 mcg by mouth once daily. rosuvastatin (CRESTOR) 5 mg tablet Take 5 mg by mouth daily at bedtime. VITAMIN D-3 50 mcg (2,000 unit) tablet Take 1 tablet by mouth once daily. fluticasone (FLONASE) 50 mcg/actuation nasal spray Use 1 [place] in the nose once daily as needed. ALLERGY RELIEF, LORATADINE, 10 mg tablet Take 10 mg by mouth once daily. DULoxetine (CYMBALTA) 30 mg capsule Take 30 mg by mouth once daily. metoprolol succinate ER (TOPROL XL) 50 mg 24 hr tablet Take 50 mg by mouth once daily. nicotine, polacrilex, 4 mg lzmn Take 1 Each by mouth every 2 hours as needed. insulin lispro (HUMALOG KWIKPEN INSULIN) 100 unit/mL inpn 13-20 Units three times daily with meal escitalopram oxalate (LEXAPRO) 20 mg tablet Take 1 tablet by mouth once daily. ibuprofen (MOTRIN) 800 mg tablet Take 1 tablet by mouth every 8 hours as needed for Pain. Take withfood. Insulin [place], Disposable, (BD ULTRAFINE III MINI PEN) 31 gauge x 3/16 ndle Use new needle with each insulin injection 4 times a day blood sugar diagnostic (ONETOUCH VERIO) test strip Test blood sugar(s) 4 times daily. Dx: Type 1 DME10.42 Insulin: Yes Current Facility-Administered Medications Medication Dose Route Frequency perflutren lipid microspheres 1.3 mL in NaCl (PF) 0.9% 10 mL injection (DEFINITY) INTRAVENOUS DIRECTED PRN sodium chloride 0.9 % (flush) 10 mL (BD POSIFLUSH) 10 mL INTRAVENOUS DIRECTED PRN Medications and Allergies have been reviewed. Pain scale :Yes chest wall and back spasm request refill on flexeril Appetite: appetite good Activity: Walking ad leticia around the house Elimination: normal, no constipation , urination is normal Sleep: no problems with sleep Incisions/Wounds: wound disruption MSI Do you feel safe in the home? Yes Courtney Gabriel APRN.SENIOR TECHNICAL ARCHITECT CC: They lancet it last time and just refilled PE: BP 113/68 Pulse 84 Temp 36.7 C (98.1 F) Resp 18 Ht 193 cm (6' 4) Wt 128.8 kg (284 lb) SpO2 98% BMI 34.57 kg/m Appearance: well groomed, white male, in no acute distress Cardiac: regular S1, S2, No murmur, No rub Lungs: Clear breath sounds bilaterally without wheeze or dullness Extremities: No edema Sternotomy site: healing, fluctuant, mid-sternotomy site, drainage: scant amount serosanguinous Wound: see above Procedures: Dr. Power CTS fellow completed MSI wound debridement: betadine prep, aseptic technique, local anesthesia achieved with 1% lidocaine infiltrate. The open, with serosanguinous drainage. Culture sent. Packed with nugauze. Reviewed wound care with patient and family member Pt tolerated the procedure well IMPRESSION & PLAN: S/P on 01/26/2022 * Roscoe Arias MD - Primary CTS OP REPORTS PROCEDURE(S): Aortic Valve Replacement Tricuspid Valve Repair Subaortic Memrane resection, Aortic root enlargement PREOPERATIVE DIAGNOSIS: Aortic Valve Regurgitation Tricuspid Regurgitation small aortic root 2. Wound Check / MSI - last seen in opd on 02/09/22 due to increased drainage from MSI. WOund culture obtained and positive for rare coag neg staph. pt was treated with DOxy - reoccurrence of blistering - CTS Fellow reviewed CT scan no acute concerns. - Dr. Power unroofed and debrided wound. Would culture sent - continue daily packing with nugauze - Return to CTS OPD in one week to reassess PIC: 02/17/2022 CT Chest 02/17/22 PRESSION: Evidence of median sternotomy for aortic valve replacement and tricuspid valve repair. Expected postsurgical changes noted along the sternotomy site and in the retrosternal space as described. No definite drainable fluid collection or abnormal gas bubbles identified. No evidence of sternal dehiscence. Small amount of high attenuation anterior pericardial effusion likely contains degraded products of hemorrhage. Trace left pleural effusion with adjacent atelectasis in the posterior left base. Superimposed infection or aspiration cannot be completely excluded. 3. Post Op Pain - back spasm - requested flexeril and norco - Pain Control: Pt has undergone cardiac surgical procedure. I have refilled [place] after determining appropriate use of pain medication and OARRS review. The patient is being prescribed for a maximumof 7 days with no refills not exceeding the 30 MED limit established by the [facility] (#4731-05-23). The patient has been provided with weaning instructions emphasizing the use of non- narcotic alternatives that are medically tolerable. Please wean as tolerated by increasing time between doses. REFERRAL (RECOMMENDATION): Cardiothoracic OPD for continued follow-up documented in this encounterCleveland Clinic Ment[facility] Hospital08-08-2022 Miscellaneous Notes* Addendum Note - Courtney Gabriel APRN.CNP - 02/15/2022 3:41 PM EDTAddended by: COURTNEY GABRIEL on: 02/15/2022 03:41 PM Modules accepted: Orders * Telephone Encounter - Courtney Gabriel APRN.CNP - 02/15/2022 3:38 PM EDT Spoke with patient advised either to return to CTS OPD or ER for evaluation since drainage is continuing with more redness and discomfort. Pt is also diabetic. Offered an appointment tomorrow. Patient requested morning. Therefore scheduled for 10:30am with CT chest prior and labs prior. If any worsening sxs or fever needs to proceed to ER for evaluation. Patient agrees to poc. Courtney Gabriel APRN.CNP CTS OPD * Telephone Encounter - Aniya Norwood RN - 02/15/2022 2:08 PM EDT [facility] Contact Center Inbound Phone Encounter DATE of SERVICE: 02/15/2022 TIME of SERVICE: 2:08 PM Status: Non-urgent, needs attention Service/Provider: Cardiac Surgery Roscoe Arias M.D. Reason for call: Incisions Contact information: pt Resolution: Sent to Omnigy Comments: Pt called the [facility] Post DC phone as instructed to do from Renay Funk CNP if incision is not healing. Pt had a follow-up with QAMAR Gee - lanced and antibiotic were started as incision was draining. Pt states it is still draining, and just not healing. Denies fever. [phone] Aniya Norwood RN Date of Resolution: 02/15/2022 Time of Resolution 2:08 PM documented in this encounterCleveland Clinic [facility] Hospital08-02-2022 History of Present illness Narrative* Renay Funk APRN.SENIOR TECHNICAL ARCHITECT - 02/09/2022 3:11 PM EDT Images from the original note were not included. [facility] [place] Department of Cardiovascular Medicine DEPARTMENT OF CARDIAC SURGERY OUTPATIENT VISIT DATE February 03, 2022 OUTPATIENT VISIT TYPE POSTOPERATIVE Luisito Zhong is a 41 year old male who presents who is here for post operative follow up HPI: S/P on 01/26/2022 * Roscoe Arias MD - Primary CTS OP REPORTS PROCEDURE(S): Aortic Valve Replacement Tricuspid Valve Repair Subaortic Memrane resection, Aortic root enlargement PREOPERATIVE DIAGNOSIS: Aortic Valve Regurgitation Tricuspid Regurgitation small aortic root Discharged on 01/31/2022 Last seen 02/03/2022 for sternal pain and drainage. Had scant drainage at distal area with well approximated incision Started on doxycycline Here today because drainage has increased. 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 Has been clean since 06/21/2018. Went to treatment at [facility] for 9 months Mitral regurgitation Murmur Rotator cuff syndrome 06/18/2015 Subaortic membrane with stenosis Tetrahydrocannabinol (THC) use disorder, mild, in sustained remission, in controlled environment, abuse Type 1 diabetes mellitus with diabetic polyneuropathy (HCC) PAST SURGICAL HISTORY Procedure Laterality Date HIP SURGERY HX Right PAST SURGICAL HISTORY OF Left shoulder scope PAST SURGICAL HISTORY OF 12/2018 aortic valve surgery to help open up REVISE MEDIAN N/CARPAL TUNNEL SURG Bilateral RT ELBOW CUBITAL TUNNEL ONLY Right SHOULDER SURGERY HX Right x4 ALLERGIES Allergen Reactions Hydromorphone Itching Tramadol Other: See Comments Burning skin Current Outpatient Medications Medication Sig HYDROcodone-acetaminophen (NORCO) 5-325 mg per tablet Take 1 tablet by mouth every 8 hours as needed for pain for up to 7 days. cyclobenzaprine (FLEXERIL) 5 mg tablet Take 2 tablets by mouth twice daily as needed. doxycycline (VIBRA-TABS) 100 mg tablet Take 1 tablet by mouth twice daily. furosemide (LASIX) 40 mg tablet Take 1 tablet by mouth once daily. potassium chloride ER (K-DUR, KLOR-CON) 20 mEq tablet Take 1 tablet by mouth once daily for 7 days.Take with lasix aspirin 81 mg chewable tablet Take 1 tablet by mouth once daily. albuterol HFA (PROVENTIL HFA, VENTOLIN HFA) 90 mcg/actuation inhaler Inhale 2 Puffs as instructed every 4 hours as needed. levothyroxine (SYNTHROID) 150 mcg tablet Take 150 mcg by mouth once daily. rosuvastatin (CRESTOR) 5 mg tablet Take 5 mg by mouth daily at bedtime. VITAMIN D-3 50 mcg (2,000 unit) tablet Take 1 tablet by mouth once daily. fluticasone (FLONASE) 50 mcg/actuation nasal spray Use 1 [place] in the nose once daily as needed. ALLERGY RELIEF, LORATADINE, 10 mg tablet Take 10 mg by mouth once daily. DULoxetine (CYMBALTA) 30 mg capsule Take 30 mg by mouth once daily. metoprolol succinate ER (TOPROL XL) 50 mg 24 hr tablet Take 50 mg by mouth once daily. nicotine, polacrilex, 4 mg lzmn Take 1 Each by mouth every 2 hours as needed. insulin lispro (HUMALOG KWIKPEN INSULIN) 100 unit/mL inpn 13-20 Units three times daily with meal escitalopram oxalate (LEXAPRO) 20 mg tablet Take 1 tablet by mouth once daily. ibuprofen (MOTRIN) 800 mg tablet Take 1 tablet by mouth every 8 hours as needed for Pain. Take withfood. Insulin [place], Disposable, (BD ULTRAFINE III MINI PEN) 31 gauge x 3/16 ndle Use new needle with each insulin injection 4 times a day blood sugar diagnostic ([place] SolarUCH VERIO) test strip Test blood sugar(s) 4 times daily. Dx: Type 1 DME10.42 Insulin: Yes Current Facility-Administered Medications Medication Dose Route Frequency perflutren lipid microspheres 1.3 mL in NaCl (PF) 0.9% 10 mL injection (DEFINITY) INTRAVENOUS DIRECTED PRN sodium chloride 0.9 % (flush) 10 mL (BD POSIFLUSH) 10 mL INTRAVENOUS DIRECTED PRN Chief Complaints: Discharge Post Operative Course: Pain scale :No: 0 on a scale of 0 to 10 Appetite: appetite good Activity: Walking ad leticia around the house Elimination: normal, no constipation Sleep: no problems with sleep Mood: normal Incisions/Wounds: Not applicable Review of Systems: HEENT: No complaints offered Cardiac: Denies significant problems Respiratory: denies patient denies a history of any respiratory problems Musculoskeletal: No history of joint swelling, joint pain, or loss of range of motion. Neuro: Denies neurological complaints Physical Exam: BP 127/72 Pulse 89 Temp 36.8 C (98.2 F) SpO2 97% Appearance: well developed, well nourished Neck: No neck vein distention Cardiac: regular S1, S2 Lungs: Clear breath sounds bilaterally without wheeze or dullness Abdomen: soft, non tender Extremities: No edema Sternum: stable Sternotomy site: some flucuance at distal end with drainage and erythema Procedures: Distal wound debrided. IMPRESSION & PLAN: CTS OP REPORTS S/P on 01/26/2022 * Roscoe Arias MD - Primary CTS OP REPORTS PROCEDURE(S): Aortic Valve Replacement Tricuspid Valve Repair Subaortic Memrane resection, Aortic root enlargement PREOPERATIVE DIAGNOSIS: Aortic Valve Regurgitation Tricuspid Regurgitation small aortic root Discharged on 01/31/2022 Last seen 02/03/2022 for sternal pain and drainage. Had scant drainage at distal area with well approximated incision Started on doxycycline Here today because drainage has increased. On ASA, BB Post op Echo 01/30/2022 Technically difficult exam due to body habitus, suboptimal positioning, post op and bandages/chest tubes/wound. - Exam indication: S/p AVR, TVr - The left ventricle is normal in size. Left ventricular systolic function is normal. EF = 55 5% (visual est.) - The right ventricle is normal in size. Right ventricular systolic function is normal. - Post tricuspid valve repair. Hernandez MC3 Tricuspid Ring. There is trace tricuspid valve regurgitation. The peak gradient is 6 mmHg and the mean gradient is 4 mmHg. - Inspiris prosthetic aortic valve (size #25). There is trace aortic valve regurgitation. The peak gradient is 32 mmHg, the mean gradient is 17 mmHg and the dimensionless valve index is 0.62. - Exam was compared with the prior echocardiographic exam performed on 01/26/22 (OR Echo), first post op TTE. 1. Atelectasis (primary encounter diagnosis): Continue BPH, PEP, CDB, OOB, and pain control Chest XR 02/05/2022 - in process, reviewed Lungs and pleura: There is a small left pleural effusion. There are no consolidated infiltrates. There is no pneumothorax. Cardiomediastinal silhouette: There is prominence of the cardiac silhouette. The aorta is slightly tortuous. Other: There are sternotomy wires. 2. Post-op pain: on norco, refilled today for one more week, takes flexeril at night. No further refills. 3. Type 1 diabetes mellitus with diabetic polyneuropathy (HCC); dc on home insulin pump 4. Acquired Hypothyroid: on synthroid at home 5. MSI erythema; stable sternum, developed more drainage over the weekend. PLAN Wound culture pending Doxycyline for 5 more days Summary: Post op care and discharge orders reviewed with the patient- all questions were answered. Surgical sites healing without complication Discussed new medications, dosage, route of administration and side effects Reviewed walking program at home Reviewed diet guidelines for recovery from surgery Return to the clinic prn with signs or symptoms of infection, fevers, SOB, or pleural effusion SBE prophylaxis reviewed Renay Funk APRN.QAMAR documented in this encounterCleveland Clinic [facility] Hospital08-02-2022 Miscellaneous Notes* Telephone Encounter - Lakisha Holt RN - 02/09/2022 11:47 AM EDT [facility] Contact Center Inbound Phone Encounter DATE of SERVICE: 02/09/2022 TIME of SERVICE: 11:48 AM Status: Non-urgent, needs attention Service/Provider: Cardiac Surgery Roscoe Arias M.D. Reason for call: Incisions Contact information: Javy Zhong [phone] Resolution: Sent to Omnigy Comments: Luisito Zhong called the [facility] post discharge line to say his midsternal incision had more drainage yesterday. He put a gauze dressing on it last night and he indicated the dressing was 'soaked' this morning. He describes the drainage as whitish-yellow and the skin around the incision as pink and puffy. He denies a fever. He has been taking the antibiotic since the last wound check. He said he was + for strep in his skin prior to the surgery and is asking if that has anything to do withit. He asked if he should be seen locally to assess the incision. He can be reached at [phone]. Lakisha Holt RN Date of Resolution: 02/09/2022 Time of Resolution 11:48 AM documented in this encounterCleveland Clinic [facility] Hospital08-02-2022 Miscellaneous Notes* Telephone Encounter - Lakisha Holt RN - 02/09/2022 8:38 AM EDT [facility] [place] Contact Center Inbound Phone Encounter DATE of SERVICE: 02/09/2022 TIME of SERVICE: 8:39 AM Status: Non-urgent, needs attention Service/Provider: Cardiac Surgery Roscoe Arias M.D. Reason for call: Medication Issue/Question Contact information: Dot at [facility] [phone] [facility] Comments: Dot, from [facility] [phone], called to say she needs it to be noted how many days supply Hydrocodone-acetaminophen is prescribed for. She indicates this can be done electronically. Lakisha Holt RN Date of Resolution: 02/09/2022 Time of Resolution 8:39 AM documented in this encounterCleveland Clinic Ment[facility] Hospital07-28-2022 Miscellaneous Notes* Telephone Encounter - Kerry Ba RN - 02/04/2022 11:36 AM EDT [facility] [place] Contact Center Inbound Phone Encounter DATE of SERVICE: 02/04/2022 TIME of SERVICE: 11:38 AM Status: Non-urgent, needs attention Service/Provider: Cardiac Surgery Roscoe Arias M.D. Reason for call: Medication Issue/Question and Pain Contact information: [phone] Resolution: [facility] Comments: Pt calling [facility] line. Last seen in OPD yesterday. Experiencing pain incision and back/shoulders. Drove his tractor on the field and noticed pain increased. Pt is a side sleeper and deep sleeper. Wakes to find himself on his side. Educated on topics, as well as 2LFR, IS/deep breathing. Encouraged use of topical Lidocaine Patch and warm compress to back/shoulders. Pt requesting Ibuprofen prescription and muscle relaxer medication to be sent to [facility]. It was listed as prior medication but long ago. Pt ph # [phone]. Kerry Ba RN Date of Resolution: 02/04/2022 Time of Resolution 11:38 AM documented in this encounterCleveland Clinic Mentor Hospital07-27-2022 History of Present illness Narrative* Renay Fukn APRN.SENIOR TECHNICAL ARCHITECT - 02/03/2022 11:30 AM EDT Images from the original note were not included. [facility] Department of Cardiovascular Medicine DEPARTMENT OF CARDIAC SURGERY OUTPATIENT VISIT DATE February 03, 2022 OUTPATIENT VISIT TYPE POSTOPERATIVE Luisito Zhong is a 41 year old male who presents who is here for post operative follow up HPI: S/P on 01/26/2022 * Roscoe Arias MD - Primary CTS OP REPORTS PROCEDURE(S): Aortic Valve Replacement Tricuspid Valve Repair Subaortic Memrane resection, Aortic root enlargement PREOPERATIVE DIAGNOSIS: Aortic Valve Regurgitation Tricuspid Regurgitation small aortic root Discharged on 01/31/2022 PAST MEDICAL HISTORY Diagnosis Date Acquired hypothyroidism Alcohol abuse sober since 2013 Anxiety and depression 04/04/2019 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 Has been clean since 06/21/2018. Went to treatment at [facility] for 9 months Mitral regurgitation Murmur Rotator cuff syndrome 06/18/2015 Subaortic membrane with stenosis Tetrahydrocannabinol (THC) use disorder, mild, in sustained remission, in controlled environment, abuse Type 1 diabetes mellitus with diabetic polyneuropathy (HCC) PAST SURGICAL HISTORY Procedure Laterality Date HIP SURGERY HX Right PAST SURGICAL HISTORY OF Left shoulder scope PAST SURGICAL HISTORY OF 12/2018 aortic valve surgery to help open up REVISE MEDIAN N/CARPAL TUNNEL SURG Bilateral RT ELBOW CUBITAL TUNNEL ONLY Right SHOULDER SURGERY HX Right x4 ALLERGIES Allergen Reactions Hydromorphone Itching Tramadol Other: See Comments Burning skin Current Outpatient Medications Medication Sig aspirin 81 mg chewable tablet Take 1 tablet by mouth once daily. furosemide (LASIX) 40 mg tablet Take 1 tablet by mouth once daily. HYDROcodone-acetaminophen (NORCO) 5-325 mg per tablet Take 1 tablet by mouth every 4 hours as needed (for severe or breakthrough pain. Wean off medication by increasing time between doses.). potassium chloride ER (K-DUR, KLOR-CON) 20 mEq tablet Take 1 tablet by mouth once daily for 7 days.Take with lasix albuterol HFA (PROVENTIL HFA, VENTOLIN HFA) 90 mcg/actuation inhaler Inhale 2 Puffs as instructed every 4 hours as needed. levothyroxine (SYNTHROID) 150 mcg tablet Take 150 mcg by mouth once daily. rosuvastatin (CRESTOR) 5 mg tablet Take 5 mg by mouth daily at bedtime. VITAMIN D-3 50 mcg (2,000 unit) tablet Take 1 tablet by mouth once daily. fluticasone (FLONASE) 50 mcg/actuation nasal spray Use 1 [place] in the nose once daily as needed. ALLERGY RELIEF, LORATADINE, 10 mg tablet Take 10 mg by mouth once daily. DULoxetine (CYMBALTA) 30 mg capsule Take 30 mg by mouth once daily. metoprolol succinate ER (TOPROL XL) 50 mg 24 hr tablet Take 50 mg by mouth once daily. nicotine, polacrilex, 4 mg lzmn Take 1 Each by mouth every 2 hours as needed. escitalopram oxalate (LEXAPRO) 20 mg tablet Take 1 tablet by mouth once daily. ibuprofen (MOTRIN) 800 mg tablet Take 1 tablet by mouth every 8 hours as needed for Pain. Take withfood. insulin lispro (HUMALOG KWIKPEN INSULIN) 100 unit/mL inpn 13-20 Units three times daily with meal Insulin [place], Disposable, (BD ULTRAFINE III MINI PEN) 31 gauge x 3/16 ndle Use new needle with each insulin injection 4 times a day blood sugar diagnostic ([employer] [employer]CH VERIO) test strip Test blood sugar(s) 4 times daily. Dx: Type 1 DME10.42 Insulin: Yes Current Facility-Administered Medications Medication Dose Route Frequency perflutren lipid microspheres 1.3 mL in NaCl (PF) 0.9% 10 mL injection (DEFINITY) INTRAVENOUS DIRECTED PRN sodium chloride 0.9 % (flush) 10 mL (BD POSIFLUSH) 10 mL INTRAVENOUS DIRECTED PRN Chief Complaints: Discharge Post Operative Course: Pain scale :No: 0 on a scale of 0 to 10 Appetite: appetite good Activity: Walking ad leticia around the house Elimination: normal, no constipation Sleep: no problems with sleep Mood: normal Incisions/Wounds: Not applicable Review of Systems: HEENT: No complaints offered Cardiac: Denies significant problems Respiratory: denies patient denies a history of any respiratory problems Musculoskeletal: No history of joint swelling, joint pain, or loss of range of motion. Neuro: Denies neurological complaints Physical Exam: BP 124/58 Pulse 95 Temp 36.6 C (97.9 F) (Oral) Ht 193 cm (6' 4) Wt 135.2 kg (298 lb) SpO2 97% BMI 36.27 kg/m Appearance: well developed, well nourished Neck: No neck vein distention Cardiac: regular S1, S2 Lungs: Clear breath sounds bilaterally without wheeze or dullness Abdomen: soft, non tender Extremities: No edema Sternum: stable Sternotomy site: healing Wound: NA Procedures: Sutures removed from chest tube sites without difficulty. IMPRESSION & PLAN: S/P on 01/26/2022 * Roscoe Arias MD - Primary CTS OP REPORTS PROCEDURE(S): Aortic Valve Replacement Tricuspid Valve Repair Subaortic Memrane resection, Aortic root enlargement PREOPERATIVE DIAGNOSIS: Aortic Valve Regurgitation Tricuspid Regurgitation small aortic root Discharged on 01/31/2022 On ASA, BB Post op Echo 01/30/2022 Technically difficult exam due to body habitus, suboptimal positioning, post op and bandages/chest tubes/wound. - Exam indication: S/p AVR, TVr - The left ventricle is normal in size. Left ventricular systolic function is normal. EF = 55 5% (visual est.) - The right ventricle is normal in size. Right ventricular systolic function is normal. - Post tricuspid valve repair. Hernandez MC3 Tricuspid Ring. There is trace tricuspid valve regurgitation. The peak gradient is 6 mmHg and the mean gradient is 4 mmHg. - Inspiris prosthetic aortic valve (size #25). There is trace aortic valve regurgitation. The peak gradient is 32 mmHg, the mean gradient is 17 mmHg and the dimensionless valve index is 0.62. - Exam was compared with the prior echocardiographic exam performed on 01/26/22 (OR Echo), first post op TTE. 1. Atelectasis (primary encounter diagnosis): Continue BPH, PEP, CDB, OOB, and pain control Chest XR 02/03/2022 - in process, reviewed 2. Post-op pain: on norco 3. Type 1 diabetes mellitus with diabetic polyneuropathy (HCC); dc on home insulin pump 4. Acquired Hypothyroid: on synthroid at home 5. MSI erythema; stable sternum, no drainage slight erythema PLAN Continue lasix and potassium for one week Start doxycycline for one week course for erythema at MSI Summary: Post op care and discharge orders reviewed with the patient- all questions were answered. Surgical sites healing without complication Discussed new medications, dosage, route of administration and side effects Reviewed walking program at home Reviewed diet guidelines for recovery from surgery Return to the clinic prn with signs or symptoms of infection, fevers, SOB, or pleural effusion SBE prophylaxis reviewed Renay Funk APRN.QAMAR documented in this encounterC[facility] Miscellaneous Notes* Telephone Encounter - Renay Maher RN - 02/01/2022 1:54 PM EDT Contacted patient at the request of Sunday Sharif RN. Patient has concerns with increase in shortness of breath with activity that resolves with rest. States that he experienced this while in the hospital. However, he was using oxygen. He is concerned that he is not using oxygen at home. He is doing coughing and deep breathing exercises but not as much as I should be. Denies any swelling. Discussed with Joycelyn Wells NP, who recommended coughing and deep breathing exercises as well as dailyweights.Will call back in am with update in am and as needed for further questions or concerns. Reviewed all priority symptoms. Patient verbalizes understanding of all points discussed. Much reassurance provided Renay Maher RN, Resource Nurse * Telephone Encounter - Sunday Sharif RN - 02/01/2022 11:58 AM EDT 1. Have you noticed any increased shortness of breath since you left the hospital? (HVI Red Flag Question) Yes Pt stated he noticed increased SOB last night (01/31/22). Pt stated he was taken off of O2 the day before discharge. Pt stated he has trouble taking in deep breaths; pt stated pain when taking a deep breath, but not sharp pain. Pt stated chest x-rays showed possibility of collapsed lung(s) or post op pneumonia, but they did not seem concerned about it. Pt stated he is still experiencing SOB today all the time with activity, and it takes awhile for it to go away once he rests - 10 minutes. PD nurse advised pt to seek immediate medical attention if symptoms change or worsen. Pt verbalized understanding. 2. Have you noticed any increased swelling in your feet, ankles or belly? (Heart Failure Red Flag Question) Yes Pt stated that last night (01/31/22) his bi-lateral feet swollen pretty bad; pt stated his Rt foot is swollen worse than his Lt foot. Pt stated swelling is a little better today. PD nurse educated pt on elevating feet above level of his heart. Pt verbalized understanding. 3. Have you gained more than 2 3 pounds since discharge? (HVI Red Flag Question) No 4. Have you noticed any changes to your incision or wound since you were discharged as we want to be aware of any signs of infection? (HVI Red Flag Question) No Leaking blood-tinged and clear fluid (serosanguinous) leaking from sternum incision. Pt stated he did experience drainage before discharge as well. Pt wanted to know which type of dressing is ok to be used to cover the area. 5. Are you having any increased pain since discharge? If Yes: What type of pain and where? (HVI RedFlag Question) No 6. Have you had any unplanned trips to the Emergency Department or Hospital since you were discharged? If yes: Why? (Heart Failure Red Flag Question) No 7. Do you have any questions about how to take your medications? (Standard Question) No 8. Have you filled your prescriptions [if no-why? If related to cost - Do you need to be connected to someone who can help you with the cost?] Reminder: Please bring in your medications at your follow up appointment. (HVI Red Flag Question) Yes 9. Do you have a doctor s appointment scheduled or is someone working on getting you a follow-up appointment? (Standard Question) Yes Overall Comments: Urgent: SOB, Bi-Lateral Swelling, & Drainage. Closing statement given. Email sent to heart center. PD nurse confirmed/verified patient's and full name. Sunday Sharif RN documented in this encounterCleveland [facility]07-19-[facility]22 History of Present illness Narrative* Roscoe Arias MD - 01/26/2022 10:24 AM EDT Thoracic and Cardiovascular Surgery [facility] CARDIOTHORACIC CLINIC NOTE CHART COPY DO NOT DISCARD Patient Type: Established Visit to determine Surgery: Yes PCP: To use this Smartlink, specify the provider ID whose address you want to display, e.g., .[email or web address][1(where 1 is the provider ID). Referring Physician:: Abhinav Garrett [address] [place] [address] Mr. Luisito Zhong returns to clinic today for continued evaluation. He is a 41 year old male with a subaortic membrane. MRI confirms LVOT gradient and membrane.. Impression: Subaortic membrane, recurrent Plan: Redo sternotomy and subaortic membrane, possible Aortic Valve Replacement (tissue) I spent more than 50% of the visit face to face counseling the patient on the plan and treatment options. The time spent counseling was 20 minutes. The total time of the face to face visit was 20 minutes. These findings will be communicated back to the requesting physician via mail. Roscoe Arias MD documented in this encounterCleveland Clinic [facility]07-18-2022 History of Present illness Narrative* Remi Lyn RN - 01/25/2022 1:54 PM EDT AMBULATORY PATIENT EDUCATION READINESS TO LEARN Cognitive Ability: Alert and oriented Motivation To Learn: Interested Family Support: High - Very involved in pt care Instruction Provided To: Patient & Family Patient Learns Best By: Multiple Methods Factors Affecting Learning: None Physical Limitations Affecting Learning: None LEARNING RESPONSE Diagnosis: sub kayla. surgery Education Topic: Pre-Op Open Heart Surgery Instructions Disease Process Teaching Points: Logistics / Protocols /Complication Prevention How prepared do you feel you are for this visit: 8 Instruction/Supplemental Materials: Cardiac Surgery Information Binder Individual Instruction Patient/Family Response: Well prepared Follow up plan: Patient/Family to call [facility] with any further questions Referral (Recommendation): None Teach completed, topic: pt instructed where to check in documented in this encounterC[facility]07-18-2022 History of Present illness Narrative* Dayday Capps MD - 01/25/2022 1:35 PM EDT Cardiothoracic Anesthesiology Preoperative Assessment Service Date: 01/25/2022 Service Time: 1:35 PM Primary Care Physician: No primary care provider on file. Subjective Scheduled procedure: Subaortic membrane removal Surgeon: Roscoe Arias Scheduled date: 01/26/2022 HPI: He is a 41 year old male with subaortic membrane s/p resection in 2019, HTN, type 1 diabetes, dyslipidemia, obesity, prior alcohol and substance (cocaine, cannabis) abuse, and ex-smoker. Regarding the subaortic membrane, he is currently symptomatic and complains of shortness of breath. His echo cardiogram reveals normal ventricular function and moderate aortic regurgitation and subaortic membrance with LVOT gradient. ECHO shows: Known subaortic membrane. Ridge visualized just below the right coronary aortic valve cusp (measuring approximately 1.1cm x 0.4cm in clip # 124). A tiny componentis also suggested on the anterior mitral annulus (clip #14). Severe subvalvular stenosis with peak/mean gradients 75/41 mmHg and recurrence of subaortic membrane with significant aortic stenosis. Review blood transfusion consented -. A type & screen is resulted ECHO 12/31: - Exam indication: Subaortic membrane - The left ventricle is normal in size. Left ventricular systolic function is normal. EF = 69 5% (2D biplane) Mid cavitary dynamic gradient of 5mmHg which increases to 18mmHg with valsalva. - The right ventricle is normal in size. Right ventricular systolic function is normal. - Mildly accelerated flow through the pulmonic valve: Peak gradient of 17mmHg. - Known subaortic membrane. Ridge visualized just below the right coronary aortic valve cusp (measuring approximately 1.1cm x 0.4cm in clip # 124). A tiny component is also suggested on the anterior mitral annulus (clip #14). Severe subvalvular stenosis with peak/mean gradients 75/41 mmHG. - Exam was compared with the prior CC echocardiographic exam performed on 08/27/2015 ([facility]). Patient has since had a subaortic membrane resection (2018) then recurrence of subaortic membrane with significant aortic stenosis. Stress ECHO 12/31: - Exam indication: Subaortic membrane/ Evalute peak LVOT gradient - The exercise stress echo was negative for ischemia at 85 % of MPHR (6.7 METS). - The left ventricle is normal in size. Left ventricular systolic function is normal. EF = 66 5% (2D 4-ch.) - The right ventricle is normal in size. Right ventricular systolic function is normal. - Known subaortic membrane, prior resection and recurrence. Subaortic gradients of 58/33mmHg (higher rest gradients on complete rest study from today. Post stress gradients increase to 114/69mmHg. - Exam was compared with the prior CC echocardiographic exam performed on 12/31/21. This was a rest study today which also reported severe subvalvular stenosis with peak/mean gradients 75/41 mmHg. COVID-19 Immunization Status Overdue - COVID-19 VACCINE (3 - Booster for Moderna series) Overdue since 04/07/2021 11/05/2020 Imm Admin: COVID-19 vaccine, full dose (MODERNA) 10/09/2020 Imm Admin: COVID-19 vaccine, full dose (MODERNA) The patient has the following: ACTIVE PROBLEM LIST Impingement Syndrome of Right Shoulder Type 1 Diabetes Mellitus With Diabetic Polyneuropathy (Hcc) Acquired Hypothyroidism Ex-Smoker Subaortic Membrane Mitral Regurgitation Alcohol Abuse History of Drug Abuse ([facility]) Anxiety and Depression Dyspnea Dyslipidemia Obesity (Bmi 30-39.9) Discharge Planning Issues Pre-Op Testing PAST MEDICAL HISTORY Diagnosis Date Acquired hypothyroidism Alcohol abuse sober since 2013 Anxiety and depression 04/04/2019 Cocaine abuse in remission ([facility]) last used 10/17/2014 Ex-smoker Ex-smoker Started at the age of 15 up to 1 PPD and quit 07/2018 Frozen shoulder 03/12/2014 History of drug abuse ([facility]) 04/04/2019 Cocaine and marijuana. Has been clean since 06/21/2018. Went to treatment at [facility] for 9 months Mitral regurgitation Murmur Rotator cuff syndrome 06/18/2015 Subaortic membrane with stenosis Tetrahydrocannabinol (THC) use disorder, mild, in sustained remission, in controlled environment, abuse Type 1 diabetes mellitus with diabetic polyneuropathy ([facility]) PAST SURGICAL HISTORY Procedure Laterality Date HIP SURGERY HX Right PAST SURGICAL HISTORY OF Left shoulder scope PAST SURGICAL HISTORY OF 12/2018 aortic valve surgery to help open up REVISE MEDIAN N/CARPAL TUNNEL SURG Bilateral RT ELBOW CUBITAL TUNNEL ONLY Right SHOULDER SURGERY HX Right x4 FAMILY HISTORY Problem Relation Age of Onset No Known Problems Mother No Known Problems Father No Known Problems Sister No Known Problems Sister Cancer Maternal Grandmother Heart Attack Paternal Grandfather Social History Tobacco Use Smoking status: Former Smoker Packs/day: 1.00 Years: 24.00 Pack years: 24.00 Types: Cigarettes Quit date: 11/2021 Years since quittin.2 Smokeless tobacco: Never Used Tobacco comment: nicotine lozenges daily Substance Use Topics Alcohol use: Not Currently Drug use: No Comment: cocaine use in remission, last use 10/17/2014 Prior to Admission medications as of 01/25/22 1308 Medication Sig Last Dose Taking albuterol HFA (PROVENTIL HFA, VENTOLIN HFA) 90 mcg/actuation inhaler Inhale 2 Puffs as instructed every 4 hours as needed. levothyroxine (SYNTHROID) 150 mcg tablet Take 150 mcg by mouth once daily. rosuvastatin (CRESTOR) 5 mg tablet Take 5 mg by mouth daily at bedtime. VITAMIN D-3 50 mcg (2,000 unit) tablet Take 1 tablet by mouth once daily. fluticasone (FLONASE) 50 mcg/actuation nasal spray Use 1 [place] in the nose once daily as needed. ALLERGY RELIEF, LORATADINE, 10 mg tablet Take 10 mg by mouth once daily. DULoxetine (CYMBALTA) 30 mg capsule Take 30 mg by mouth once daily. metoprolol succinate ER (TOPROL XL) 50 mg 24 hr tablet Take 50 mg by mouth once daily. ranolazine ER (RANEXA) 500 mg 12 hr tablet Take 1 tablet by mouth twice daily. nicotine, polacrilex, 4 mg lzmn Take 1 Each by mouth every 2 hours as needed. acetaminophen (TYLENOL) 500 mg tablet Take 1,000 mg by mouth every 6 hours as needed. insulin lispro (HUMALOG KWIKPEN INSULIN) 100 unit/mL inpn 13-20 Units three times daily with meal escitalopram oxalate (LEXAPRO) 20 mg tablet Take 1 tablet by mouth once daily. ibuprofen (MOTRIN) 800 mg tablet Take 1 tablet by mouth every 8 hours as needed for Pain. Take withfood. Insulin [place], Disposable, (BD ULTRAFINE III MINI PEN) 31 gauge x 3/16 ndle Use new needle with each insulin injection 4 times a day blood sugar diagnostic ([place] [employer] VERIO) test strip Test blood sugar(s) 4 times daily. Dx: Type 1 DME10.42 Insulin: Yes No medication comments found. ALLERGIES Allergen Reactions Hydromorphone Itching Tramadol Other: See Comments Burning skin Objective Pain Assessment: Vitals: There were no vitals taken for this visit. Diagnostic tests reviewed for today's visit: Lab Value Units Date High Low HB 14.8 g/dL 01/22/2022 17.0 13.0 HCT 45.2 % 01/22/2022 51.0 39.0 WBC 7.15 k/uL 01/22/2022 11.00 3.70 PLT 272 k/uL 01/22/2022 400 150 NA 141 mmol/L 01/22/2022 144 136 K 4.0 mmol/L 01/22/2022 5.1 3.7 GLUC 116 mg/dL 01/22/2022 99 74 BUN 12 mg/dL 01/22/2022 24 9 CREAT 1.00 mg/dL 01/22/2022 1.22 0.73 PTSEC 10.9 sec 01/22/2022 13.0 9.7 INR 1.0 no uni* 01/22/2022 1.3 0.9 APTT 27.3 sec 01/22/2022 32.4 23.0 ALT 24 U/L 01/22/2022 54 10 AST 26 U/L 01/22/2022 40 14 TBILI 0.7 mg/dL 01/22/2022 1.3 0.2 TSH 5.140 mIU/L 01/22/2022 4.200 0.270 Lab Value Units Date High Low HCGQT No results within date range. UHCG No results within date range. HCG, BODY* No results within date range. Lab Value Units Date High Low ABORHD No results within date range. ABSCREEN No results within date range. Hemoglobin A1C (%) Date Value 01/22/2022 7.7 Hemoglobin A1C (POCT) (%) Date Value 01/22/2022 8.1 Recent Results (from the past 8760 hour(s)) ECHO Collection Time: 12/31/21 12:31 PM Impression CONCLUSIONS: - Exam indication: Subaortic membrane - The left ventricle is normal in size. Left ventricular systolic function is normal. EF = 69 5% (2D biplane) Mid cavitary dynamic gradient of 5mmHg which increases to 18mmHg with valsalva. - The right ventricle is normal in size. Right ventricular systolic function is normal. - Mildly accelerated flow through the pulmonic valve: Peak gradient of 17mmHg. - Known subaortic membrane. Ridge visualized just below the right coronary aortic valve cusp (measuring approximately 1.1cm x 0.4cm in clip # 124). A tiny component is also suggested on the anterior mitral annulus (clip #14). Severe subvalvular stenosis with peak/mean gradients 75/41 mmHG. - Exam was compared with the prior echocardiographic exam performed on 08/27/2015 ([facility]). Patient has since had a subaortic membrane resection (2018) then recurrence of subaortic membrane with significant aortic stenosis. * * * Final * * * CT CHEST CARDIAC WO IVCON Collection Time: 12/31/21 10:55 AM Impression IMPRESSION: Normal thoracic aorta. No acute thoracic abnormality. Indeterminate tubular structure, possibly a portosplenic shunt. This can be further evaluated with prior outside imaging of the abdomen with contrast, if available. Journeyman Pipefitter: PSCB Transcribe Date/Time: Dec 31 2021 11:00A Dictated by : SHELBY COREY MD This examination was interpreted and the report reviewed and electronically signed by: RUBÉN MONSIVAIS MD on Dec 31 2021 2:19PM EST XR CHEST 2V FRONTAL/LAT Collection Time: 12/31/21 10:10 AM Impression IMPRESSION: No acute radiographic abnormality. Journeyman Pipefitter: PSCB Transcribe Date/Time: Dec 31 2021 3:14P Dictated by : MONIQUE RIVERA MD This examination was interpreted and the report reviewed and electronically signed by: MONIQUE RIVERA MD on Dec 31 2021 3:15PM EST ECG COMPLETE Collection Time: 12/31/21 10:04 AM Impression NORMAL SINUS RHYTHM POSSIBLE LEFT ATRIAL ENLARGEMENT BORDERLINE ECG Confirmed by HORACIO THOMSON M.D. ([id number]) on 01/06/2022 8:58:33 AM Assessment No problem-specific Assessment & Plan notes found for this encounter. ANESTHESIA FINDINGS: Intubation History: No history of difficult intubation. No abnormal airway history Significant Anesthesia Considerations: Airway History: No history of difficult airway No abnormal airway history Prepared for Surgery: optimally prepared for surgery. The Following Tests/Procedures Have Been Initiated: Orders Placed This Encounter mupirocin (BACTROBAN) 2 % ointment Sig: Apply a small amount in each nostril using a cotton swab twice the day before surgery and once the morning of surgery. Dispense: 22 g Refill: 0 Order Comments: Supply patient with Q-tips and instruction sheet ASA Class: 3 Planned Anesthetic: general I - PHYSICAL EVALUATION AIRWAY Tracheostomy tube not present Mallampati: II. TM distance: >3 FB. Neck ROM: full ROM without neurological symptoms. Mouth opening: adequate. Short neck: no. Thick neck: no DENTAL Dental findings: chipped. II - ANESTHESIA PLAN ASA Score: 3 Anesthetic Plan: general Airway type: ETT Informed Consent Anesthetic risks, benefits, alternatives, personnel and consent discussed: yes. Patient / Responsible Alliance Party agrees to proceed: yes Patient / Surrogate agrees to blood products: Yes Instructions Given to Patient: Instructions located in the after visit summary. Patient given verbal and written preop instructions and voices comprehension and compliance. Signature: Dayday Capps MD Patient Name: Luisito Zhong Date: January 25, 2022 Time: 1:35 PM Pager/Contact #: documented in this encounterCleveland Clinic [facility]07-18-2022 History of Present illness Narrative* Remi Lyn RN - 01/25/2022 11:59 AM EDT CHART COPY-DO NOT DISCARD CARDIOVASCULAR SURGERY PRE-OPERATIVE ASSESSMENT NAME: Luisito Zhong Alert Notes: DATE: 01/25/2022 SEX: male : 1980 AGE: [id number] year old Estimated body mass index is 36.88 kg/m as calculated from the following: Height as of 01/22/22: 193 cm (6' 4). Weight as of 01/22/22: 137.4 kg (303 lb). STS Score No data recorded No data recorded Patient scheduled for surgery on: No data recorded [facility] MD: Dr Junie Dillon REDO: Yes, yes CHIEF COMPLAINT: Pre-Op Open Heart Surgery MEDICATIONS: Current Outpatient Medications Medication Sig albuterol HFA (PROVENTIL HFA, VENTOLIN HFA) 90 mcg/actuation inhaler Inhale 2 Puffs as instructed every 4 hours as needed. levothyroxine (SYNTHROID) 150 mcg tablet Take 150 mcg by mouth once daily. rosuvastatin (CRESTOR) 5 mg tablet Take 5 mg by mouth daily at bedtime. VITAMIN D-3 50 mcg (2,000 unit) tablet Take 1 tablet by mouth once daily. fluticasone (FLONASE) 50 mcg/actuation nasal spray Use 1 [place] in the nose once daily as needed. ALLERGY RELIEF, LORATADINE, 10 mg tablet Take 10 mg by mouth once daily. DULoxetine (CYMBALTA) 30 mg capsule Take 30 mg by mouth once daily. metoprolol succinate ER (TOPROL XL) 50 mg 24 hr tablet Take 50 mg by mouth once daily. ranolazine ER (RANEXA) 500 mg 12 hr tablet Take 1 tablet by mouth twice daily. nicotine, polacrilex, 4 mg lzmn Take 1 Each by mouth every 2 hours as needed. acetaminophen (TYLENOL) 500 mg tablet Take 1,000 mg by mouth every 6 hours as needed. insulin lispro (HUMALOG KWIKPEN INSULIN) 100 unit/mL inpn 13-20 Units three times daily with meal escitalopram oxalate (LEXAPRO) 20 mg tablet Take 1 tablet by mouth once daily. ibuprofen (MOTRIN) 800 mg tablet Take 1 tablet by mouth every 8 hours as needed for Pain. Take withfood. Insulin [place], Disposable, (BD ULTRAFINE III MINI PEN) 31 gauge x 3/16 ndle Use new needle with each insulin injection 4 times a day blood sugar diagnostic ([employer] MedicalTOUCH VERIO) test strip Test blood sugar(s) 4 times daily. Dx: Type 1 DME10.42 Insulin: Yes No current facility-administered medications for this visit. ALLERGIES: ALLERGIES Allergen Reactions Hydromorphone Itching Tramadol Other: See Comments Burning skin LATEX ALLERGY: No FOOD SENSITIVITIES: No ANTICOAGULANTS: otc vit supp 01/19/2022 STEROIDS yes HISTORIES: FAMILY HISTORY Problem Relation Age of Onset No Known Problems Mother No Known Problems Father No Known Problems Sister No Known Problems Sister Cancer Maternal Grandmother Heart Attack Paternal Grandfather PAST MEDICAL HISTORY Diagnosis Date Acquired hypothyroidism Alcohol abuse sober since 2013 Anxiety and depression 04/04/2019 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 Has been clean since 06/21/2018. Went to treatment at [facility] for 9 months Mitral regurgitation Murmur Rotator cuff syndrome 06/18/2015 Subaortic membrane with stenosis Tetrahydrocannabinol (THC) use disorder, mild, in sustained remission, in controlled environment, abuse Type 1 diabetes mellitus with diabetic polyneuropathy (HCC) PAST SURGICAL HISTORY Procedure Laterality Date HIP SURGERY HX Right PAST SURGICAL HISTORY OF Left shoulder scope PAST SURGICAL HISTORY OF 12/2018 aortic valve surgery to help open up REVISE MEDIAN N/CARPAL TUNNEL SURG Bilateral RT ELBOW CUBITAL TUNNEL ONLY Right SHOULDER SURGERY HX Right x4 Social History Tobacco Use Smoking status: Former Smoker Packs/day: 1.00 Years: 24.00 Pack years: 24.00 Types: Cigarettes Quit date: 11/2021 Years since quittin.2 Smokeless tobacco: Never Used Tobacco comment: nicotine lozenges daily Substance Use Topics Alcohol use: Not Currently Drug use: No Comment: cocaine use in remission, last use 10/17/2014 REVIEW OF SYSTEMS: GEN: Fatigue HEENT: Dental Clearance DERM: Denies Dermatological Complaints COMMERCIAL LOAN PROCESSOR: Denies Neurological Complaints RESP: SOB CARD: Angina , GI: Denies Gastrointestinal Complaints : Denies complaints ENDO: Type 1 Diabetes ins pump HEME: Denies Hematological complaints MUSC/SKEL: No Musc/Skel Complaints PVD: Denies PVD Varicose Veins: No BRUITS (Carotid): see cards jnote PULSES: Pedal Left 2 Right 2 NYHA CLASSIFICATION: Class 2 FAMILY HISTORY OF CAD: Yes ? PERFUSION INDEX: DOMINANT HAND: right-handed Pacer Check: NA CARDIAC EVALUATION: Cardiac Cath: Date - get images Ultrasound: Date - PFT: Date - 01/22/2022 ECHO: Last ECHO Result Conclusion ECHO Collected: 12/31/2021 12:31 PM (Final result) Impression: CONCLUSIONS: - Exam indication: Subaortic membrane - The left ventricle is normal in size. Left ventricular systolic function is normal. EF = 69 5% (2D biplane) Mid cavitary dynamic gradient of 5mmHg which increases to 18mmHg with valsalva. - The right ventricle is normal in size. Right ventricular systolic function is normal. - Mildly accelerated flow through the pulmonic valve: Peak gradient of 17mmHg. - Known subaortic membrane. Ridge visualized just below the right coronary aortic valve cusp (measuring approximately 1.1cm x 0.4cm in clip # [phone]). A tiny component is also suggested on the anterior mitral annulus (clip #14). Severe subvalvular stenosis with peak/mean gradients 75/41 mmHG. - Exam was compared with the prior echocardiographic exam performed on 08/27/2015 ([facility]). Patient has since had a subaortic membrane resection (2018) then recurrence of subaortic membrane with significant aortic stenosis. * * * Final * * * Complete Results CT Scan: Last CT Result Conclusion CT CHEST CARDIAC WO IVCON Exam End: 12/31/2021 10:55 AM (Final result) Impression: IMPRESSION: Normal thoracic aorta. No acute thoracic abnormality. Indeterminate tubular structure, possibly a portosplenic shunt. This can be further evaluated with prior outside imaging of the abdomen with contrast, if available. Journeyman Pipefitter: [facility] Transcribe Date/Time: Dec 31 2021 11:00A Dictated by : SHELBY COREY MD This examination was interpreted and the report reviewed and electronically signed by: RUBÉN MONSIVAIS MD on Dec 31 2021 2:19PM EST Complete Results MRI: Last MRI Result Conclusion MRI CARDIAC VELOCITY FLOW MAP Exam End: 01/22/2022 3:21 PM (Final result) Impression: IMPRESSION: Overall, the findings are consistent with known diagnosis of subaortic membrane with significant flow acceleration in the LVOT. 1. There is significant flow acceleration noted in the LVOT consistent with a subaortic membrane. The membrane itself is incompletely visualized but can be seen in systole within the LVOT on dedicated views. 2. Normal left ventricle size (LVEDVi 74 mL/m2) and systolic function (LVEF 60 %). No discrete myocardial fibrosis on delayed enhancement imaging to suggest an infiltrative process or prior myocardial/ischemic injury. 3. Normal right ventricle size (RVEDVi 87 mL/m2) and systolic function (RVEF 51 %). 4. Trileaflet aortic valve with mildly thickened leaflets and mild aortic regurgitation (RF 11%). Journeyman Pipefitter: [facility] Transcribe Date/Time: Jan 22 2022 4:27P Dictated by : JERRICA LOWRY MD This examination was interpreted and the report reviewed and electronically signed by: SUKHDEV DENG MD on Jan 22 2022 5:25PM EST Complete Results CXR: XR CHEST 2V FRONTAL/LAT Result Date: 12/31/2021 IMPRESSION: No acute radiographic abnormality. Journeyman Pipefitter: [facility] Transcribe Date/Time: Dec 31 2021 3:14P Dictated by : MONIQUE RIVERA MD This examination was interpreted and the report reviewed and electronically signed by: MONIQUE RIVERA MD on Dec 31 2021 3:15PM EST EKG: Last EKG Result Conclusion ECG COMPLETE Collected: 12/31/2021 10:04 AM (Final result) Impression: NORMAL SINUS RHYTHM POSSIBLE LEFT ATRIAL ENLARGEMENT BORDERLINE ECG Confirmed by HORACIO THOMSON M.D. ([id number]) on 01/06/2022 8:58:33 AM Complete Results Dental: Cleared ? Recent Labs 01/22/22 1411 WBC 7.15 HB 14.8 HCT 45.2 PLT 272 INR 1.0 APTT 27.3 PTSEC 10.9 NA 141 K 4.0 BUN 12 CREAT 1.00 Pre Op Instructions per protocol reviewed and handout given to patient . Patient Education completed and documented. Instructed to start Bactroban per protocol. Emotional support provided to patient and family. All questions and concerns adressed. Signature: Remi Lyn RN See Cardiology History and Physical dated 12/31/2021 documented in this encounterC[facility]07-15-2022 History of Present illness Narrative* Lesia Milan RRT - 01/22/2022 12:57 PM EDT PULM FUNCTION SMARTBLOCK: Provider: Roscoe Arias MD Spirometry: 1 DLCO: 1 System: 2 - [id number] documented in this encounterC[facility]07-15-2022 History of Present illness Narrative* Leroy Talley MD - 01/22/2022 12:25 PM EDT Images from the original note were not included. [facility] DIABETES CONSULTATION REASON FOR CONSULT: Type 1 diabetes on an insulin pump. Patient scheduled for cardiac surgery next week . REQUESTING PHYSICIAN: Roscoe Arias MD My final recommendations will be communicated back to the requesting provider by way of shared medical records, letter or fax. HISTORY OF PRESENT ILLNESS Mr. Luisito Zhong is a 41 year old male presenting as a new patient to me for type 1 diabetes on an insulin pump. The patient has a subaortic membrane and is scheduled for cardiac surgery on 01/26/2022. Mr. Zhong previously followed his diabetes care with Dr. Kristal Desai MD. He will transition his care to another local Thermodynamic Physicist next month. The patient reports that was initially diagnosed with diabetes at age 3. He does have a family history of diabetes mellitus in his paternal grandfather (type 2?) Mr. Zhong past medical history is also significant for obesity class 2, insulin resistance, hypertension, dyslipidemia, hypothyroidism, aortic valve disease, h/o alcohol and drug abuse (cocaine, cannabis), h/o tobacco smoking, peripheral neuropathy, anxiety, depression He has a history of DKA, more recently in Jul 2021. He also reports some degree of hypoglycemia unawareness. Mr. Zhong has been using a Tandem t:slim insulin pump for a couple of years. He was also using a Dexcom CGM in the past. Recently he has been trying to get a new Dexcom CGM Insulin pump settings (lispro delivered by Tandem t:slim ) Basal rates: 00:00 hrs: 1.1 unit(s)/hr 04:00 hrs: 1.0 unit(s)/hr 07:00 hrs: 1.4 unit(s)/hr 11:00 hrs: 1.3 unit(s)/hr 18:00 hrs: 1.5 unit(s)/hr 23:00 hrs: 1.3 unit(s)/hr Carb ratio: 10 (all day) Sensitivity: 35 (all day) Target: 110 (all day) Active insulin time: 5 hrs The patient can adjust the settings of his insulin pump without supervision. He bolus for meals manually based on experience (not adding glucose level or carbs) Total daily insulin (past 7 days): 89 units (33% basal, 69% bolus) Today his hemoglobin A1c is 8.1% The patient didn't bring his glucometer. Reports SMBG typically twice daily. Reports BG readings inthe past week within 60 to 275 mg/dL The patient reports that few weeks ago he was treated with prednisone for elbow pain and that he experienced worsening hyperglycemia. He states that in the past week his BG levels have been looking overall better. The patient experiences polyuria, polydipsia, dry mouth associated to hyperglycemia. Mr. Zhong reports occasional episodes of hypoglycemia, typically during the day and related to increased levels of physical activity. 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 He feels hunger, diaphoresis, weakness when his BG levels drop. Sometimes he experiences no symptoms until his BG is in the 50s. He states that has not had episodes of severe hypoglycemia, with loss of consciousness, or requiring assistance of another person, in years. Mr. Zhong tries to follow a diet low in carbohydrates. States that he knows carb counting. He typically eats three meals per day, plus bedtime snack. Currently the patient denies any numbness, tingling or pain on his feet. He has been on treatment with Cymbalta. REVIEW OF SYSTEMS: A relevant review of the systems was performed and it is negative except the pertinent positive andnegative stated in my HPI. PAST MEDICAL AND SURGICAL HISTORY: PAST MEDICAL HISTORY Diagnosis Date Acquired hypothyroidism Alcohol abuse sober since 2013 Anxiety and depression 04/04/2019 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 Has been clean since 06/21/2018. Went to treatment at [facility] for 9 months Mitral regurgitation Murmur Rotator cuff syndrome 06/18/2015 Subaortic membrane with stenosis Tetrahydrocannabinol (THC) use disorder, mild, in sustained remission, in controlled environment, abuse Type 1 diabetes mellitus with diabetic polyneuropathy ([facility]) PAST SURGICAL HISTORY Procedure Laterality Date HIP SURGERY HX Right PAST SURGICAL HISTORY OF Left shoulder scope PAST SURGICAL HISTORY OF 12/2018 aortic valve surgery to help open up REVISE MEDIAN N/CARPAL TUNNEL SURG Bilateral RT ELBOW CUBITAL TUNNEL ONLY Right SHOULDER SURGERY HX Right x4 FAMILY HISTORY: FAMILY HISTORY Problem Relation Age of Onset No Known Problems Mother No Known Problems Father No Known Problems Sister No Known Problems Sister Cancer Maternal Grandmother Heart Attack Paternal Grandfather SOCIAL HISTORY: Social History Tobacco Use Smoking status: Former Smoker Packs/day: 1.00 Years: 24.00 Pack years: 24.00 Types: Cigarettes Quit date: 11/2021 Years since quittin.2 Smokeless tobacco: Never Used Tobacco comment: nicotine lozenges daily Substance Use Topics Alcohol use: Not Currently Drug use: No Comment: cocaine use in remission, last use 10/17/2014 MEDICATIONS: Current Outpatient Medications on File Prior to Visit Medication Sig albuterol HFA (PROVENTIL HFA, VENTOLIN HFA) 90 mcg/actuation inhaler Inhale 2 Puffs as instructed every 4 hours as needed. levothyroxine (SYNTHROID) 150 mcg tablet Take 150 mcg by mouth once daily. rosuvastatin (CRESTOR) 5 mg tablet Take 5 mg by mouth daily at bedtime. VITAMIN D-3 50 mcg (2,000 unit) tablet Take 1 tablet by mouth once daily. fluticasone (FLONASE) 50 mcg/actuation nasal spray Use 1 [place] in the nose once daily as needed. ALLERGY RELIEF, LORATADINE, 10 mg tablet Take 10 mg by mouth once daily. DULoxetine (CYMBALTA) 30 mg capsule Take 30 mg by mouth once daily. metoprolol succinate ER (TOPROL XL) 50 mg 24 hr tablet Take 50 mg by mouth once daily. ranolazine ER (RANEXA) 500 mg 12 hr tablet Take 1 tablet by mouth twice daily. nicotine, polacrilex, 4 mg lzmn Take 1 Each by mouth every 2 hours as needed. acetaminophen (TYLENOL) 500 mg tablet Take 1,000 mg by mouth every 6 hours as needed. insulin lispro (HUMALOG KWIKPEN INSULIN) 100 unit/mL inpn 13-20 Units three times daily with meal escitalopram oxalate (LEXAPRO) 20 mg tablet Take 1 tablet by mouth once daily. ibuprofen (MOTRIN) 800 mg tablet Take 1 tablet by mouth every 8 hours as needed for Pain. Take withfood. Insulin [place], Disposable, (BD ULTRAFINE III MINI PEN) 31 gauge x 3/16 ndle Use new needle with each insulin injection 4 times a day blood sugar diagnostic (Wind[employer] MedicalTOUCH VERIO) test strip Test blood sugar(s) 4 times daily. Dx: Type 1 DME10.42 Insulin: Yes No current facility-administered medications on file prior to visit. ALLERGIES: ALLERGIES Allergen Reactions Hydromorphone Itching Tramadol Other: See Comments Burning skin PHYSICAL EXAM: Vital Signs BP 118/68 Pulse 72 Wt 137.8 kg (303 lb 11.2 oz) BMI 36.97 kg/m2 General: Looks his stated age. Well appearing, in no acute distress, alert and oriented. Skin: no jaundice, pallor, cyanosis, generalized skin rash. Head: normocephalic, no masses, lesions, tenderness or abnormalities. Eyes: no proptosis, anicteric sclera. pink conjunctiva. Neck: Supple, no obvious thyromegaly or neck masses. Thyroid exam limited by neck adiposity. Lymph nodes: no palpable cervical lymphadenopathy Heart: regular rate and rhythm, no murmurs, rubs or gallops Chest: No signs of respiratory distress. Clear to auscultation bilaterally. Abdomen: no violaceous striae, non distended, soft, non-tender, positive bowel sounds Extremities: no cyanosis, clubbing, edema Neurologic: alert and oriented to time, space and place. No obvious focal deficits. Gait: is preserved. Balance is preserved. Psychiatry: pleasant, conversant, cooperative. Good insight and judgment. Mood and affect appropriate LABORATORY REVIEW: All pertinent laboratory results were reviewed for today's visit. Please see HPI for further details. Hemoglobin A1C (POCT) (%) Date Value 01/22/2022 8.1 ) Creatinine Date Value Ref Range Status 12/31/2021 0.90 0.73 - 1.22 mg/dL Final No components found for: URINEALBUMIN Cholesterol, Total (MG/dL) Date Value 04/07/2020 162 Total Cholesterol, Nonfasting (mg/dL) Date Value 12/31/2021 204 HDL Cholesterol (MG/DL) Date Value 04/07/2020 49 HDL Cholesterol, Nonfasting (mg/dL) Date Value 12/31/2021 65 LDL Cholesterol (MG/DL) Date Value 04/07/2020 99 LDL Cholesterol, Nonfasting (mg/dL) Date Value 12/31/2021 114 Triglyceride (MG/DL) Date Value 04/07/2020 73 Triglycerides, Nonfasting (mg/dL) Date Value 12/31/2021 127 TSH (UIU/ML) Date Value 04/07/2020 3.729 ALT (U/L) Date Value 12/31/2021 25 04/07/2020 18 No results found for: UALBR No results found for: CPEPT Estimated GFR (no units) Date Value 04/07/2020 Greater than 60 DIAGNOSIS 1. Type 1 diabetes mellitus 2. Hyperglycemia 3. Insulin pump status 4. Hypothyroidism 5. Subaortic membrane and is scheduled for cardiac surgery on 01/26/2022. IMPRESSION AND RECOMMENDATIONS Mr. Zhong is a 41 year old male with a history of type 1 diabetes on an insulin pump and a subaorticmembrane. There are plans for cardiac surgery next week. Today hemoglobin A1c is 8.1%. He thinks that this is related to his recent treatment with steroids for elbow pain and swelling. He reports that overall his blood glucose levels have been looking better in the past week. Mr. Zhong has been using a Tandem t:slim insulin pump. He is not currently using a CGM. He has been trying to get a new Dexcom CGM with the help of his local Thermodynamic Physicist. I agree that he would benefit from a CGM, particularly considering that he appears to have some degree of hypoglycemia unawareness. The patient has been testing glucose levels only twice daily. He didn't bring his glucometer. I explain that he needs to SMBG at least 4 times per day. There is no enough data to make adjustments to his insulin pump settings. The patient is scheduled for cardiac surgery on 01/26/2022. At this time he will continue his insulin pump program with settings as described below: Insulin pump settings (lispro delivered by Tandem t:slim ) Basal rates: 00:00 hrs: 1.1 unit(s)/hr 04:00 hrs: 1.0 unit(s)/hr 07:00 hrs: 1.4 unit(s)/hr 11:00 hrs: 1.3 unit(s)/hr 18:00 hrs: 1.5 unit(s)/hr 23:00 hrs: 1.3 unit(s)/hr Carb ratio: 10 (all day) Sensitivity: 35 (all day) Target: 110 (all day) Active insulin time: 5 hrs Please consult inpatient endocrinology service soon after he is admitted to the hospital. The patient will wear his insulin pump on surgical day. Based on the available information, he can continue the current basal rates the night before surgery. The patient understands that the insulin pump will be removed before surgery and that his diabetes will be managed with an IV insulin drip during surgery and in the postoperative period, as per cardiac surgery protocol. The transition from IV insulin to his insulin pump should be done under the supervision of Endocrinology. The patient has type 1 diabetes, therefore he needs basal insulin all the time. The patient is responsible for supplying his insulin pump supplies. He verbalized understanding andagreement. Regarding his history of hypothyroidism, the patient will continue his treatment with [id number] mcg per day. Mr. Zhong reports that TSH was checked in September 2021 and that it was normal. The patient plans to follow-up with his local portfolio manager (maria e) once he is discharged from the hospital. He already scheduled an appointment in February. Mr. Zhong will follow-up with his PCP and with other consultants regarding his other medical problems. All questions answered today. The patient feels comfortable with the plan. Leroy Solis MD [facility]inology [facility] Met[facility] documented in this encounterC[facility] Clinic [facility]07-15-2022 Instructions* Patient Instructions* Jossie Moreno Ma - 01/22/2022 10:37 AM EDT Thank you for choosing the [facility] Department of Endocrinology, Diabetes and Metabolism. Being able to provide excellent health care has allowed us to be # 3 in the country according to [employer]. Did you know that you need to call 48 hours in advance of your scheduled visit, if you are unable to make your appointment? The [facility] thanks you for your commitment, because patients not showing to their appointment results in a lost opportunity for patients to receive world class health care at the [facility]. To Cancel an appointment, please choose one of the following: - Call the Appointment Call Center at [phone] - From Medium, Go to Appointments Cancel Appts If cancelling, consider your need to reschedule to prevent further delays in your care. To Schedule an appointment, please choose one of the following: - Call the Appointment Call Center at [phone] - From Medium, Go to Appointments Request an Appt + documented in this encounterCleveland Clinic [facility]06-24-2022 Miscellaneous Notes* Telephone Encounter - Josselyn Rausch RN - 01/01/2022 12:52 PM EDT Patient seen in evaluation by Dr. Arias who wishes to offer surgery. Spoke with patient and offered surgical date of 01/26 which he has accepted.Cardiac Surgery PreOp Checklist Patient Name: Luisito Zhong OR Surgery Date: 01/26 [facility] Appt. Date: 01/25 Primary Care Provider: No primary care provider on file. Definition Comments Diabetes/Insulin Pump A1-c and Endo consult (need for pump pt) ordered Hypothyroid/thyroid nodules TSH/US of thyroid if new nodule TSH ordered. Stroke (CVA) Neurology consult n/a Dysphagia, stricture w/no recent dilation, Mendiola's Esophagus GI consult n/a Von Willebrand/thrombocytopenia/ Blood... Hematology consult n/a Abnormal labs from outside Place any necessary consults n/a Cardiac Cath Correct birthday/include all images/moving if outside cath Outside cath completed on 11/12/21. Redo OHS/Robotic surgery/radiation to chest CT or CTA/if outside CT will need in-house CXR, CardiacMRI CT chest completed on 12/31/21. Mechanical valve Admit for Heparin/Lovenox bridge n/a Female <50 y/o HCG n/a Heparin allergy hx of HIT Vascular Medicine consult n/a Nickel/Metal allergy Dermatology consult n/a Breast implants/Robotic candidates Plastic Surgery consult n/a Urinary strictures Urology consult/Urology consult to OR n/a All stimulators/spinal stimulator Type of stimulator n/a PPM/AICD Device check n/a Valve/TAVR/TEVAR/Myectomy/ascending aorta Dental clearance/Dental Consult at [facility] Patient will see local dentist. CABG surgery with previous CABG/varicose vein/vein stripping Leg vein mapping n/a LMT disease > 30% or Carotid Bruits Carotid ultrasound n/a Descending Aneurysm/TEVAR/TAA Pre-admit/hydration/spinal drain to be placed: IR/OR/Not Needed n/a Dialysis patient IHD day prior to OHS n/a CABG with no ECHO results Discussion w/surgeon results for dental clearance: preop/postop n/a Advanced Directives Instructions given to patient n/a FMLA Forward to AA n/a Test/Consult not needed Communicate in Epic or Access n/a Record of decreased PFTs, known lung disease Any pulmonary consult n/a Pulmonary embolectomy Needs US/Duplex BLE, VQ scan RHC, possible LHC, Pulmonary and/or Vascular consult n/a Abnormal CT All>1cm if further workup/consult needed n/a CC-Bio Repostitory Notification of packet and general knowledge given to pt n/a * Telephone Encounter - Roscoe Arias MD - 01/01/2022 7:34 AM EDT Saw in clinic. Will need surgery. Can we schedule cardiac MRI to characterize LVOT prior to OHS. Can get cMRI on day of TCI. OK to schedule documented in this encounterCleveland [facility]06-24-[facility]22 History of Present illness Narrative* Roscoe Arias MD - 01/01/2022 7:29 AM EDT Images from the original note were not included. Thoracic and Cardiovascular Surgery [facility] SURGICAL STAFF CONSULT Patient Type: CONSULT Visit to determine Surgery: YES PCP: To use this Smartlink, specify the provider ID whose address you want to display, e.g., .PROVADDR[1(where 1 is the provider ID). Referring Physician: Luz Maria Perez MD [address] [place] [address] [address] [facility] [id number] HPI: Mr. Luisito Zhong is a seen in consultation at the request of Luz Maria Perez for an opinion regarding cardiac surgery after being seen and evaluated by Darek Hoff MD, PHD. He is a 41 year old male with subaortic membrane. He is currently symptomatic and complains of shortness of breath. I have personally reviewed his CT scan which shows safe distance behind sternum. His echocardiogram reveals normal ventricular function and moderate aortic regurgitation and subaorticmembrance with LVOT gradient. He is s/p subaortic membrane resection in 2019. ECHO today shows: Known subaortic membrane. Ridge visualized just below the right coronary aortic valve cusp (measuring approximately 1.1cm x 0.4cm in clip # 124). A tiny component is also suggested on the anterior mitralannulus (clip #14). Severe subvalvular stenosis with peak/mean gradients 75/41 mmHG.then recurrenceof subaortic membrane with significant aortic stenosis. His significant past medical history includes hypertnesion, hyperlipidemia and history of previous heart surgery. Based on my evaluation he is a reasonable candidate for surgery. Impression: Subaortic membrane Plan: I would recommend obtaining a cardiac MRI to fully characterize LVOT then proceed with surgery. I spent more than 50% of the visit face to face counseling the patient on the plan and treatment options. The time spent counseling was 40 minutes. The total time of the face to face visit was 40 minutes. These findings will be communicated back to the requesting physician via electronic medical record and/or dictated letter. Roscoe Arias MD documented in this encounterCleveland Clinic [facility]06-23-2022 History of Present illness Narrative* RT De(R) - 12/31/2021 11:30 AM EDT Radiology Service Progress Note PATIENT NAME: Luisito Zhong DATE OF SERVICE: December 31, 2021 TIME: 10:43 AM PATIENT IDENTITY VERIFICATION COMPLETED USING TWO (2) IDENTIFIERS: Name and Date of confirmedby patient verbally and Name and Date of confirmed by identification band. FALL SCREENING: Has the patient had 2 falls in the last year or 1 fall with injury or currently using an Ambulatory Assistive Device (Walker, Cane, Wheelchair, Crutches, etc.)? No PATIENT GENDER DATA: Male PATIENT RELEVANT IMPLANT DATA REVIEWED: Yes RADIOLOGY DEPARTMENT: CT; Exam(s) Completed: Cardiac PERIPHERAL IV DATA: Not applicable SIGNED BY: RT De(Forest) December 31, 2021 10:43 AM documented in this encounterCleveland Clinic [facility]06-23-2022 History of Present illness Narrative* RT Macario(Forest) - 12/31/2021 10:00 AM EDT RADIOLOGY SERVICE PROGRESS NOTE DATE OF SERVICE: December 31, 2021 TIME OF SERVICE: 10:15 AM EVENT: PT REMOVED AN INSULIN PUMP FOR THE XRAY. ADDITIONAL EVENT DETAILS: N/A SIGNATURE: RT Macario(Forest) PATIENT NAME: Luisito Zhong DATE: December 31, 2021 TIME: 10:42 AM PAGER/CONTACT #: [id number] * ZULY Sorto) - 12/31/2021 10:00 AM EDT Radiology Service Progress Note PATIENT NAME: Luisito Zhong DATE OF SERVICE: December 31, 2021 TIME: 10:15 AM PATIENT IDENTITY VERIFICATION COMPLETED USING TWO (2) IDENTIFIERS: Name and Date of confirmedby patient verbally. FALL SCREENING: Has the patient had 2 falls in the last year or 1 fall with injury or currently using an Ambulatory Assistive Device (Walker, Cane, Wheelchair, Crutches, etc.)? No PATIENT GENDER DATA: Male PATIENT RELEVANT IMPLANT DATA REVIEWED: Not Applicable RADIOLOGY DEPARTMENT: General X-ray: Exam(s) Completed: Chest X-Ray PERIPHERAL IV DATA: Not applicable SIGNED BY: RT Macario(R) December 31, 2021 10:15 AM documented in this encounterCleveland Clinic [facility]06-23-2022 History of Present illness Narrative* Abhinav Garrett MD - 12/31/2021 7:15 AM EDT Images from the original note were not included. Heart and Vascular [facility] Department of Cardiovascular Medicine SECTION OF CARDIOVASCULAR IMAGING OUTPATIENT VISIT DATE December 31, 2021 OUTPATIENT VISIT TYPE NEW PRIMARY CARE PHYSICIAN: To use this Smartlink, specify the provider ID whose address you want to display, e.g., .PROVADDR[1(where 1 is the provider ID). REFERRING PHYSICIAN: Roscoe Arias [id number] [facility] [id number] CHIEF COMPLAINT: Patient presents with: Dyspnea On Exertion Subaortic membrane HISTORY OF PRESENT ILLNESS: Mr. Zhong is a 41 year old male who presents today for evaluation of subaortic membrane, for historyof this s/p surgery 12/2018 OSH, along with type 1 diabetes, dyslipidemia, obesity, prior alcohol and substance (cocaine, cannabis) abuse, and ex-smoker. This was a childhood diagnosis for him (<10yo) which was asymptomatic and monitored for many years, until about 2017 when he started to developshortness of breath and fatigue on exertion, which progressed including leg swelling and some dizziness, and undergoing surgery in 12/2018 (we don't have images). He did well after this initially backto normal, however a year later (2020) symptoms started to recur. Initially his heart rate was in the 90s and with metoprolol his symptoms improved, but since 07/2021 things got worse again for him sohe had OSH TTE, LAWSON and cath done for further evaluation (results below). Currently he gets dyspneaat 100-200 yards (so unable to do his usual physical work), associated with chest tightness. Was started on ranolazine recently which partially helps with his symptoms as well. Intermittent palpitations at nighttime, occasional dizziness when standing up without faints. Denies orthopnea/PND and legswelling. Family history of paternal grandfather Mi in his 60s. NURSING INTAKE HISTORY: Mr. Luisito Zhong is a 41 year old male from [place], [place] presenting to Cardiology Imaging for pre-operative evaluation for aortic stenosis. He was last seen at [facility] on 11/03/[address] Glenda Villagran. Impression and plan from visit: Mr. Zhong is a pleasant 41-year-old male who presents today to discuss his recurrent subaortic stenosis. He has a history of subaortic stenosis with surgical resection performed by Dr. Devine in December 2018. We reviewed his most recent echoes including a LAWSON which demonstrates turbulent flow with moderate aortic insufficiency and recurrence of his subaortic membrane. He reports that he is having worsening symptoms. He describes his symptoms of shortness of breath as well as chest pain. He states the chest pain is new compared to his previous presentation prior to his open heart surgery with Dr. Devine. We discussed that while these symptoms may be attributed to worsening gradient with what appears to be reaccumulation of his subaortic membrane, he does have risk factors for coronary artery disease. Given his risk factors it is reasonable to begin with a left and right heart catheterization which would also give the opportunity for interrogation of the LVOT. We will also obtain a cardiac MRI for anatomic evaluation of the LVOT and to further assess his aortic insufficiency. He is agreeable to this plan. Mr. Zhong has a past medical history of subvalvar aortic stenosis s/p subaortic membrane resection, heart murmur, mitral regurgitation, hyperlipidemia, type 1 diabetes, history of alcohol and substance abuse, former tobacco smoker, and current nicotine user (lozenges). He reports that symptoms of shortness of breath on exertion and fatigue came back in July 2021, some chest pain that comes and goes, he states ranexa helps. He gets some dizziness and lightheadedness when changing positions too quickly, palpitations occasionally especially while laying down, some mild edema in his ankles at times. He denies syncope and PND. He does not follow a specific diet or exercises and is not currently working. Significant family history includes heart attack in his paternal grandfather. PAST MEDICAL HISTORY Diagnosis Date Acquired hypothyroidism Alcohol abuse sober since 2013 Anxiety and depression 04/04/2019 Cocaine abuse in remission (HCC) last used 10/17/2014 Ex-smoker Ex-smoker Started at the age of 15 up to 1 PPD and quit 07/2018 Frozen shoulder 03/12/2014 History of drug abuse ([facility]) 04/04/2019 Cocaine and marijuana. Has been clean since 06/21/2018. Went to treatment at [facility] for 9 months Mitral regurgitation Murmur Rotator cuff syndrome 06/18/2015 Subaortic membrane with stenosis Tetrahydrocannabinol (THC) use disorder, mild, in sustained remission, in controlled environment, abuse Type 1 diabetes mellitus with diabetic polyneuropathy ([facility]) PAST SURGICAL HISTORY Procedure Laterality Date HIP SURGERY HX Right PAST SURGICAL HISTORY OF Left shoulder scope PAST SURGICAL HISTORY OF 12/2018 aortic valve surgery to help open up REVISE MEDIAN N/CARPAL TUNNEL SURG Bilateral RT ELBOW CUBITAL TUNNEL ONLY Right SHOULDER SURGERY HX Right x4 SOCIAL HISTORY Social History Tobacco Use Smoking status: Former Smoker Packs/day: 1.00 Years: 24.00 Pack years: 24.00 Types: Cigarettes Quit date: 11/2021 Years since quittin.1 Smokeless tobacco: Never Used Tobacco comment: nicotine lozenges daily Substance Use Topics Alcohol use: Not Currently Drug use: No Comment: cocaine use in remission, last use 10/17/2014 FAMILY HISTORY Problem Relation Age of Onset No Known Problems Mother No Known Problems Father No Known Problems Sister No Known Problems Sister Cancer Maternal Grandmother Heart Attack Paternal Grandfather ALLERGIES: ALLERGIES Allergen Reactions Hydromorphone Itching Tramadol Other: See Comments Burning skin MEDICATIONS: albuterol HFA (PROVENTIL HFA, VENTOLIN HFA) 90 mcg/actuation inhaler Inhale 2 Puffs as instructed every 4 hours as needed. levothyroxine (SYNTHROID) 150 mcg tablet Take 150 mcg by mouth once daily. rosuvastatin (CRESTOR) 5 mg tablet Take 5 mg by mouth daily at bedtime. VITAMIN D-3 50 mcg (2,000 unit) tablet Take 1 tablet by mouth once daily. fluticasone (FLONASE) 50 mcg/actuation nasal spray Use 1 [place] in the nose once daily as needed. ALLERGY RELIEF, LORATADINE, 10 mg tablet Take 10 mg by mouth once daily. DULoxetine (CYMBALTA) 30 mg capsule Take 30 mg by mouth once daily. metoprolol succinate ER (TOPROL XL) 50 mg 24 hr tablet Take 50 mg by mouth once daily. ranolazine ER (RANEXA) 500 mg 12 hr tablet Take 1 tablet by mouth twice daily. nicotine, polacrilex, 4 mg lzmn Take 1 Each by mouth every 2 hours as needed. acetaminophen (TYLENOL) 500 mg tablet Take 1,000 mg by mouth every 6 hours as needed. insulin lispro (HUMALOG KWIKPEN INSULIN) 100 unit/mL inpn 13-20 Units three times daily with meal escitalopram oxalate (LEXAPRO) 20 mg tablet Take 1 tablet by mouth once daily. ibuprofen (MOTRIN) 800 mg tablet Take 1 tablet by mouth every 8 hours as needed for Pain. Take withfood. Insulin [place], Disposable, (BD ULTRAFINE III MINI PEN) 31 gauge x 3/16 ndle Use new needle with each insulin injection 4 times a day blood sugar diagnostic (ONETOUCH VERIO) test strip Test blood sugar(s) 4 times daily. Dx: Type 1 DME10.42 Insulin: Yes REVIEW OF SYSTEMS: positives in bold GENERAL: Negative for: Weight loss or gain, Fever or Chills, Weakness and Sleep difficulties. HEENT: Negative for: Headache, Impaired Vision, Glasses, Hearing Impairment, Ringing in Ears, Nosebleeds, Poor dental care, Bleeding Gums, Dentures NECK: Negative for: Swelling, Pain, Stiffness RESPIRATORY: Negative for: Cough, Blood in Sputum, Shortness of breath, Wheezing, Apnea GASTROINTESTINAL: Negative for: Trouble swallowing, Heartburn, Change in bowel habits, Blood in stool, Dark black stools MUSCULOSKELETAL: Negative for: Muscle or joint pain, Stiffness , Joint swelling NEUROLOGIC/PSYCHIATRIC: Negative for: Weakness, Paralysis, Numbness, Tingling, Tremor, Nervousness,Depressed mood, Memory loss SKIN: Negative for: Rashes, Itching HEMATOLOGICAL/LYMPHATIC: Negative for: Easy bruising , Easy bleeding ENDOCRINE: Negative for: Heat or cold intolerance, Excessive sweating, Frequent urination, Frequentthirst PHYSICAL EXAMINATION: BP 127/74 (BP Site: Left Arm, BP Position: Sitting, BP Cuff Size: Regular Adult) Pulse 80 Ht 193 cm (6' 4) Wt 133.8 kg (295 lb) SpO2 98% BMI 35.91 kg/m General: Well appearing, in no acute distress. Skin: No clubbing, no cyanosis. Neck: No jugular venous distention,carotids have a normal upstroke Lungs: Clear to auscultation bilaterally, no wheezing or rhonchi. Heart: Regular rhythm, PMI not displaced, S1 ejection systolic murmur S2 normal, no S3, no S4, no heaves, no rub and no murmur. Extremities: No peripheral edema . Grade 2/4 distal pulses bilaterally. Neuro: Oriented to person, place and time, alert, cooperative, gait coordinated. CARDIOVASCULAR MEDICINE TESTING: OUTSIDE HOSPITAL IMAGING: OS Echo 10/07/21: SUMMARY: 1. Left ventricle: Systolic function is normal by the biplane method of disks. The estimated ejection fraction is 61%. 2. Aortic valve: Not well visualized. Trileaflet; mildly thickened leaflets. There is mild, 1+ regurgitation. The peak systolic velocity is 3.6 m/sec. The mean systolic gradient is 26 mm Hg. The peaksystolic gradient is 53 mm Hg. 3. Technically difficult study. RECOMMENDATIONS: The aortic valve was not well visualized. Further evaluation may be necessary. OS LAWSON 09/23/21: SUMMARY: 1. Left ventricle: The outflow tract shows moderate membranous anterior obstruction just below the right coronary cusp. The LVOT area by 3D guided 2D planimetry during systole is 2.4 cm2. The max (X)min diameters are 2.0 cm (X) 1.4 cm. The membrane width is about 5-6 mm. Color Doppler shows flow ac celeration within the LVOT at the level of the subaortic membrane which is impacting on the aortic valve leaflets. 2. Aortic valve: Trileaflet; mildly thickened leaflets. Early systolic pre- closure is observed, consistent with fixed subvalvular stenosis. There is moderate regurgitation (vena contracta 0.39 cm). OS Right and Left Heart Cath 11/12/2021: 1. There was no evidence of significant coronary artery disease. 2. Mild aortic regurgitation. 3. Possible microvascular disease. 4. No significant gradient across the LVOT/aortic valve identified. 5. RHC revealed normal filling pressures, normal cardiac output. [facility] tests today Electrocardiogram: 12/31/2021 sinus rhythm 74bpm no significant abnormalities. Chest X-ray: 12/31/2021 no acute abnormalities Laboratory Testin12/31/2021 normal CBC, NTproBNP(<50), Cr 0.90, TC 204/LDL [address] 12/31/2021 - Normal thoracic aorta. No acute thoracic abnormality. - Indeterminate tubular structure, possibly a portosplenic shunt. This can be further evaluated with prior outside imaging of the abdomen with contrast, if available. Last ECHO Result Conclusion ECHO Collected: 12/31/2021 12:31 PM (Final result) Impression: CONCLUSIONS: - Exam indication: Subaortic membrane - The left ventricle is normal in size. Left ventricular systolic function is normal. EF = 69 5% (2D biplane) Mid cavitary dynamic gradient of 5mmHg which increases to 18mmHg with valsalva. - The right ventricle is normal in size. Right ventricular systolic function is normal. - Mildly accelerated flow through the pulmonic valve: Peak gradient of 17mmHg. - Known subaortic membrane. Ridge visualized just below the right coronary aortic valve cusp (measuring approximately 1.1cm x 0.4cm in clip # 124). A tiny component is also suggested on the anterior mitral annulus (clip #14). Severe subvalvular stenosis with peak/mean gradients 75/41 mmHG. - Exam was compared with the prior CC echocardiographic exam performed on 08/27/2015 ([facility]). Patient has since had a subaortic membrane resection (2018) then recurrence of subaortic membrane with significant aortic stenosis. * * * Final * * * Complete Results Stress Test:Echocardiogram: 12/31/2021 - Exam indication: Subaortic membrane/ Evalute peak LVOT gradient - The exercise stress echo was negative for ischemia at 85 % of MPHR (6.7 METS). - The left ventricle is normal in size. Left ventricular systolic function is normal. EF = 66 5% (2D 4-ch.) - The right ventricle is normal in size. Right ventricular systolic function is normal. -Known subaortic membrane, prior resection and recurrence. Subaortic gradients of 58/33mmHg. Post stress gradients increase to 114/69mmHg. - Exam was compared with the prior echocardiographic examperformed on 12/31/21. Slightly lower resting sub-aortic gradients. Signficant elevation of gradients with stress. I have personally reviewed the Electrocardiogram, Chest-Xray, Laboratory Testing, Echocardiogram, Stress Test: Echocardiogram, CT and pulmonary function tests. IMPRESSION: Mr. Zhong is a 41 year old male with recurrent subaortic membrane s/p surgery 12/2018 OSH, along withtype 1 diabetes, dyslipidemia, obesity, prior alcohol and substance (cocaine, cannabis) abuse, and ex-smoker. He has significant NYHA class II symptoms limiting physical work. Echo today showed severe LVOT obstruction at rest from the subaortic membrane (1.1x0.4 cm ridge, peak velocity, 4.3 m/s, 75/41 mmHg gradient, with mild 1-2+AR), otherwise normal biventricle size/function, mid cavitary gradient rest 4 mmHg/Valsalva 18mmHg. Exercise stress echo shows impaired exercise capacity (6.7METs) andmore severe LVOT gradients up to 114/69 mmHg post-stress. OSH LAWSON also showed 5-6 mm membrane with small LVOT 2.0 x 1.4 cm, while cath showed OSH cath showed no significant coronary disease, possiblemicrovascular dysfunction (that can contribute to his symptoms), and normal right heart/pulmonary pressures. Certainly he would meet conventional guidelines criteria for subaortic membrane surgery because of high gradients and symptoms, however the decision-making is a bit more complex as he had his first surgery just 3 years ago. If surgery was to proceed the goal would presumably be not just membrane resection but try and reconstruct the LVOT to increase the caliber. Even so, there is a significant risk of the subaortic membrane/LVOT obstruction just like it had happened before and it is hard to predict if and when this would happen and need for further surgery(s) down the line. However his significant symptoms that impacts his daily activities and inability to go back to work makes compelling argument for redo surgery. He sees Dr Beavers later today with all the results to make the fin al decision towards whether to have redo subaortic membrane surgery. No changes to medications suggested and lifestyle measures listed below. PLAN AND RECOMMENDATIONS: 1. Taking into the accounts the benefits and risks/limitations, would support redo subaortic membrane surgery as described above, which likely requires both membrane resection and reconstructing broadening the LVOT, and accepting the significant risk of recurrence. To see Dr Beavers regarding final decision. Follow-up to be determined after that (whether post-op, or in 6 months with repeat imaging). 2. Continue current medications. Lifestyle measures include continue smoking cessation, weight loss, healthy diet and regular exercise. I personally interviewed, confirmed and edited the above information as obtained by others. CONTACT INFORMATION: Christina Rosado, , FRACP, [facility] Staff Panel Assembler, Section of Cardiovascular Imaging, Department of Cardiovascular Medicine, Heart, Vascular and Thoracic [place], [facility] Respiratory Care Instructorskiver uppers or linings, [facility], [facility], [address] [place] [address] Appointments: [phone], Office phone: [phone], Office fax: [phone] documented in this encounterCleveland Clinic [facility]04-29-2022 Miscellaneous Notes* Telephone Encounter - Josselyn Rausch RN - 11/06/2021 12:46 PM EDT Records reviewed by Dr. Arias who wishes to offer evaluation. Spoke with patient who agrees to proceed with scheduling process. He has prescheduled a cardiac cath and cardiac MRI at [facility] next week. He will be in touch with Dr. Arias' office once those tests have been completed in order to send the results for Dr. Arias' review. * Telephone Encounter - Rsocoe Arias MD - 11/05/2021 11:41 AM EDT Case reviewed. 41yo M s/p subaortic membrance resection in 2019 no with possible . ECHO shows normal EF and 26mmHg mean gradient. Ok to schedule evaluation only with me and cardiology. Please arrange for a dobutamine stress echo.Also non contrast chest CT. * Telephone Encounter - Betty Ovalles - 10/30/2021 2:27 PM EDT Records in Care Everywhere TTE - 09/23/21 Epic LAWSON 10/07/21 in Epic documented in this encounterCleveland Clinic [facility]04-19-2022 Miscellaneous Notes* Telephone Encounter - Beatriz Harris - 10/27/2021 1:29 PM EDT IN * Telephone Encounter - Betty Ovalles - 10/27/2021 1:02 PM EDT Insurance Card(s) scanned into [employer] Please register/advise Thank You! documented in this encounterCleveland Clinic [facility]04-19-2022 Miscellaneous Notes* Telephone Encounter - Dony Estevez - 10/27/2021 11:07 AM EDT Patient: Luisito Zhong Date of : 1980 Patient phone number: [phone] Referring Provider for the encounter: Dr. Luz Maria Perez'siva Requesting Provider: Any Reason for requesting visit (RFV/signs and symptoms/diagnosis): removal of Subaortic Membrane Person calling: caregiver: Vamshi Return call to: caregiver: Vamshi Medical Records/Insurance Card scanned into [employer]: No Comments: Please contact the office to get the patient referral and medical report. Would like the patient to be seen by Dr. Roscoe Arias documented in this encounterCleveland Clinic [facility] Hospital01-12-2022 Evaluation + Plan note Extracted from: Title:History and Physical Author:EVANGELINA OLIVO Date:07/22/21 DKA (diabetic ketoacidosis) 41-year-old male with a history of type 1 diabetes who recently tested positive for COVID-19 and is currently using cocaine is presenting with an anion gap acidosis with a relatively low glucose I suspect that his acidosis is likely secondary to combination of his cocaine use and COVID-19 I will continue insulin drip until his anion gap closes, and switch him to D5 half-normal if necessary Anion gap acidosis likely combination of COVID-19, cocaine use and DKA DKA insulin drip, will likely switch fluids to D5 half-normal saline as glucose is nearing 200 Cocaine use likely contributing to #1 COVID-19 despite the fact that he tested +2 weeks ago his symptoms are consistent with a GI presentation of coronavirus recommend negative pressure room. Hypothyroid stable Hypertension stable Smoking uncontrolled nicotine patch DVT prophylaxis Lovenox 40 daily Full code Orders: Airborne Precautions Addendum by EVANGELINA OLIVO MD on July 22, 2021 04:21:29 EST order rec not yet complete as home meds not yet verified by pharmacist, please reorder as indicated once confirmed by pharmacist Future Appointments Appointment Date:07/24/2021 10:00:00 AM Scheduled Provider: [facility] Appointment Type:ENDO Nurse Ipro Insert Appointment Date:08/10/2021 12:45:00 PM Scheduled Provider:KRISTAL DESAI MD Location:[facility] Appointment Type:ENDO OV Future Scheduled Tests Laboratory* Thyroid Stimulating Hormone 12/16/20 * Thyroid Stimulating Hormone 08/28/20 * Free T4 12/16/20 * Free T4 08/28/20 * A1C Hemoglobin 12/16/20 * A1C Hemoglobin 08/28/20 * Free T3 12/16/20 * Lipid Profile 12/16/20 * Lipid Profile 08/28/20 * Microalbumin Level Urine 12/16/20 * Microalbumin Level Urine 08/28/20 * Vitamin D Level 12/16/20 * Vitamin D Level 08/28/20 * Complete Metabolic Panel 12/16/20 * Complete Metabolic Panel 08/28/20 Radiology* MRI Spine Lumbar w/o Contrast 02/12/21 [facility] 01-11-2022 Hospital Discharge instructions Follow Up Care 07/21/2021 17:24:28 With:KRISTAL DESAI MD, [facility] Address: [phone] When:5 to 7 days Comments:DKA follow up, insulin pump With:Follow up with primary care provider Address:Unknown When:2-4 days [facility] 02-17-2016 History of Past illness Narrative* Problem Noted Date Resolved Date HTN (hypertension) 08/27/2015 documented as of this encounter (statuses as of 10/27/2021) [address] History of Past illness Narrative* Problem Noted Date Resolved Date HTN (hypertension) 08/27/2015 documented as of this encounter (statuses as of 11/06/2021) [address]2016 History of Past illness Narrative* Problem Noted Date Resolved Date HTN (hypertension) 08/27/2015 documented as of this encounter (statuses as of 01/01/2022) [address]2016 History of Past illness Narrative* Problem Noted Date Resolved Date HTN (hypertension) 08/27/2015 documented as of this encounter (statuses as of 01/01/2022) [address]2016 History of Past illness Narrative* Problem Noted Date Resolved Date HTN (hypertension) 08/27/2015 documented as of this encounter (statuses as of 01/01/2022) [address]2016 History of Past illness Narrative* Problem Noted Date Resolved Date HTN (hypertension) 08/27/2015 documented as of this encounter (statuses as of 01/01/2022) [address]2016 History of Past illness Narrative* Problem Noted Date Resolved Date HTN (hypertension) 08/27/2015 documented as of this encounter (statuses as of 01/22/2022) [address] History of Past illness Narrative* Problem Noted Date Resolved Date HTN (hypertension) 08/27/2015 documented as of this encounter (statuses as of 01/25/2022) [address]2016 History of Past illness Narrative* Problem Noted Date Resolved Date HTN (hypertension) 08/27/2015 documented as of this encounter (statuses as of 01/25/2022) [address]2016 History of Past illness Narrative* Problem Noted Date Resolved Date HTN (hypertension) 08/27/2015 documented as of this encounter (statuses as of 01/26/2022) [address]2016 History of Past illness Narrative* Problem Noted Date Resolved Date HTN (hypertension) 08/27/2015 documented as of this encounter (statuses as of 01/29/2022) [address]2016 History of Past illness Narrative* Problem Noted Date Resolved Date HTN (hypertension) 08/27/2015 documented as of this encounter (statuses as of 02/01/2022) [address]2016 History of Past illness Narrative* Problem Noted Date Resolved Date HTN (hypertension) 08/27/2015 documented as of this encounter (statuses as of 02/03/2022) [address]2016 History of Past illness Narrative* Problem Noted Date Resolved Date HTN (hypertension) 08/27/2015 documented as of this encounter (statuses as of 02/04/2022) [address]2016 History of Past illness Narrative* Problem Noted Date Resolved Date HTN (hypertension) 08/27/2015 documented as of this encounter (statuses as of 02/08/2022) [address]2016 History of Past illness Narrative* Problem Noted Date Resolved Date HTN (hypertension) 08/27/2015 documented as of this encounter (statuses as of 02/09/2022) [address]2016 History of Past illness Narrative* Problem Noted Date Resolved Date HTN (hypertension) 08/27/2015 documented as of this encounter (statuses as of 02/09/2022) [address]2016 History of Past illness Narrative* Problem Noted Date Resolved Date HTN (hypertension) 08/27/2015 documented as of this encounter (statuses as of 02/15/2022) [address]2016 History of Past illness Narrative* Problem Noted Date Resolved Date HTN (hypertension) 08/27/2015 documented as of this encounter (statuses as of 02/18/2022) [address]2016 History of Past illness Narrative* Problem Noted Date Resolved Date HTN (hypertension) 08/27/2015 documented as of this encounter (statuses as of 02/23/2022) [address]2016 History of Past illness Narrative* Problem Noted Date Resolved Date HTN (hypertension) 08/27/2015 documented as of this encounter (statuses as of 05/05/2022) [address]2016 History of Past illness Narrative* Problem Noted Date Resolved Date HTN (hypertension) 08/27/2015 documented as of this encounter (statuses as of 06/28/2022) [address]2016 History of Past illness Narrative* Problem Noted Date Resolved Date HTN (hypertension) 08/27/2015 documented as of this encounter (statuses as of 06/29/2022) [address]2016 History of Past illness Narrative* Problem Noted Date Resolved Date HTN (hypertension) 08/27/2015 documented as of this encounter (statuses as of 06/29/2022) [address]2016 History of Past illness Narrative* Problem Noted Date Resolved Date HTN (hypertension) 08/27/2015 documented as of this encounter (statuses as of 06/30/2022) [address]2016 History of Past illness Narrative* Problem Noted Date Resolved Date HTN (hypertension) 08/27/2015 documented as of this encounter (statuses as of 07/02/2022) [address]2016 History of Past illness Narrative* Problem Noted Date Resolved Date HTN (hypertension) 08/27/2015 documented as of this encounter (statuses as of 07/02/2022) [address]2016 History of Past illness Narrative* Problem Noted Date Resolved Date HTN (hypertension) 08/27/2015 documented as of this encounter (statuses as of 07/13/2022) [address]2016 History of Past illness Narrative* Problem Noted Date Resolved Date HTN (hypertension) 08/27/2015 documented as of this encounter (statuses as of 07/15/2022) [address]2016 History of Past illness Narrative* Problem Noted Date Resolved Date HTN (hypertension) 08/27/2015 documented as of this encounter (statuses as of 07/15/2022) [address]2016 History of Past illness Narrative* Problem Noted Date Resolved Date HTN (hypertension) 08/27/2015 documented as of this encounter (statuses as of 07/15/2022) [address]2016 History of Past illness Narrative* Problem Noted Date Resolved Date HTN (hypertension) 08/27/2015 documented as of this encounter (statuses as of 07/16/2022) [address]2016 History of Past illness Narrative* Problem Noted Date Resolved Date HTN (hypertension) 08/27/2015 documented as of this encounter (statuses as of 07/16/2022) [address]2016 History of Past illness Narrative* Problem Noted Date Resolved Date HTN (hypertension) 08/27/2015 documented as of this encounter (statuses as of 07/22/2022) [address]2016 History of Past illness Narrative* Problem Noted Date Resolved Date HTN (hypertension) 08/27/2015 documented as of this encounter (statuses as of 07/23/2022) [address]2016 History of Past illness Narrative* Problem Noted Date Resolved Date HTN (hypertension) 08/27/2015 documented as of this encounter (statuses as of 08/02/2022) [address]2016 History of Past illness Narrative* Problem Noted Date Resolved Date HTN (hypertension) 08/27/2015 documented as of this encounter (statuses as of 08/26/2022) [address]2016 History of Past illness Narrative* Problem Noted Date Resolved Date HTN (hypertension) 08/27/2015 documented as of this encounter (statuses as of 09/03/2022) [address]2016 History of Past illness Narrative* Problem Noted Date Resolved Date HTN (hypertension) 08/27/2015 documented as of this encounter (statuses as of 09/07/2022) [address]2016 History of Past illness Narrative* Problem Noted Date Resolved Date HTN (hypertension) 08/27/2015 documented as of this encounter (statuses as of 09/14/2022) [address]2016 History of Past illness Narrative* Problem Noted Date Resolved Date HTN (hypertension) 08/27/2015 documented as of this encounter (statuses as of 09/21/2022) [address]-2016 History of Past illness Narrative* Problem Noted Date Resolved Date HTN (hypertension) 08/27/2015 documented as of this encounter (statuses as of 09/30/2022) [address]-2016 History of Past illness Narrative* Problem Noted Date Resolved Date HTN (hypertension) 08/27/2015 documented as of this encounter (statuses as of 11/23/2022) [address]-2016 History of Past illness Narrative* Problem Noted Date Resolved Date HTN (hypertension) 08/27/2015 documented as of this encounter (statuses as of 12/10/2022) [address]2016 History of Past illness Narrative* Problem Noted Date Resolved Date HTN (hypertension) 08/27/2015 documented as of this encounter (statuses as of 12/10/2022) [address]-2016 History of Past illness Narrative* Problem Noted Date Resolved Date HTN (hypertension) 08/27/2015 documented as of this encounter (statuses as of 12/13/2022) [address]-2016 History of Past illness Narrative* Problem Noted Date Resolved Date HTN (hypertension) 08/27/2015 documented as of this encounter (statuses as of 12/24/2022) [address]-2016 History of Past illness Narrative* Problem Noted Date Resolved Date HTN (hypertension) 08/27/2015 documented as of this encounter (statuses as of 12/28/2022) [address]17-2016 History of Past illness Narrative* Problem Noted Date Resolved Date HTN (hypertension) 08/27/2015 documented as of this encounter (statuses as of 01/07/2023) [address]2016 History of Past illness Narrative* Problem Noted Date Diagnosed Date Resolved Date HTN (hypertension) 6 documented as of this encounter (statuses as of 01/24/2023) [place] [address] History of Past illness Narrative* Problem Noted Date Diagnosed Date Resolved Date HTN (hypertension) 6 documented as of this encounter (statuses as of 02/05/2023) [address]2016 History of Past illness Narrative* Problem Noted Date Diagnosed Date Resolved Date HTN (hypertension) 6 documented as of this encounter (statuses as of 02/07/2023) [address]2016 History of Past illness Narrative* Problem Noted Date Diagnosed Date Resolved Date HTN (hypertension) 6 documented as of this encounter (statuses as of 02/07/2023) [address]17-2016 History of Past illness Narrative* Problem Noted Date Diagnosed Date Resolved Date HTN (hypertension) 6 documented as of this encounter (statuses as of 02/08/2023) [address]17-2016 History of Past illness Narrative* Problem Noted Date Diagnosed Date Resolved Date HTN (hypertension) 6 documented as of this encounter (statuses as of 02/11/2023) [address]17[address]2016 History of Past illness Narrative* Problem Noted Date Diagnosed Date Resolved Date HTN (hypertension) 6 documented as of this encounter (statuses as of 02/14/2023) [address]17[address]2016 History of Past illness Narrative* Problem Noted Date Diagnosed Date Resolved Date HTN (hypertension) 6 documented as of this encounter (statuses as of 02/14/2023) [address]17[address]2016 History of Past illness Narrative* Problem Noted Date Diagnosed Date Resolved Date HTN (hypertension) 6 documented as of this encounter (statuses as of 02/15/2023) [address]17[address]2016 History of Past illness Narrative* Problem Noted Date Diagnosed Date Resolved Date HTN (hypertension) 6 documented as of this encounter (statuses as of 02/17/2023) [address]17-2016 History of Past illness Narrative* Problem Noted Date Diagnosed Date Resolved Date HTN (hypertension) 6 documented as of this encounter (statuses as of 02/21/2023) [address]17-2016 History of Past illness Narrative* Problem Noted Date Diagnosed Date Resolved Date HTN (hypertension) 6 documented as of this encounter (statuses as of 02/21/2023) [address]17[address]2016 History of Past illness Narrative* Problem Noted Date Diagnosed Date Resolved Date HTN (hypertension) 6 documented as of this encounter (statuses as of 02/22/2023) [address]17-2016 History of Past illness Narrative* Problem Noted Date Diagnosed Date Resolved Date HTN (hypertension) 6 documented as of this encounter (statuses as of 02/25/2023) [address]17[address]2016 History of Past illness Narrative* Problem Noted Date Diagnosed Date Resolved Date HTN (hypertension) 6 documented as of this encounter (statuses as of 03/01/2023) [address]17[address]2016 History of Past illness Narrative* Problem Noted Date Diagnosed Date Resolved Date HTN (hypertension) 6 documented as of this encounter (statuses as of 03/04/2023) [address]17[address]2016 History of Past illness Narrative* Problem Noted Date Diagnosed Date Resolved Date HTN (hypertension) 6 documented as of this encounter (statuses as of 03/07/2023) [address]17[address]2016 History of Past illness Narrative* Problem Noted Date Diagnosed Date Resolved Date HTN (hypertension) 6 documented as of this encounter (statuses as of 05/19/2023) [address]17[address]2016 History of Past illness Narrative* Problem Noted Date Diagnosed Date Resolved Date HTN (hypertension) 6 documented as of this encounter (statuses as of 05/25/2023) [address]2016 History of Past illness Narrative* Problem Noted Date Diagnosed Date Resolved Date HTN (hypertension) 6 documented as of this encounter (statuses as of 05/25/2023) [address]2016 History of Past illness Narrative* Problem Noted Date Diagnosed Date Resolved Date HTN (hypertension) 6 documented as of this encounter (statuses as of 05/26/2023) [address]2016 History of Past illness Narrative* Problem Noted Date Diagnosed Date Resolved Date HTN (hypertension) 6 documented as of this encounter (statuses as of 08/16/2023) [address]2016 History of Past illness Narrative* Problem Noted Date Diagnosed Date Resolved Date HTN (hypertension) 6 documented as of this encounter (statuses as of 09/29/2023) [facility] Appointment Date:01/30/2024 09:30:00 AM Scheduled Provider:KRISTAL DESAI MD Location:[facility] Appointment Type:[facility] Evaluation + Plan note Future Appointments Appointment Date:04/16/2024 03:00:00 PM Scheduled Provider:ROSCOE UMANZOR MD Location:[facility] Appointment Type:PC ANNUAL CAMPAIGN MANAGER [facility] Evaluation + Plan note Future Appointments Appointment Date:07/17/2024 10:00:00 AM Scheduled Provider:ROSCOE UMANZOR MD Location:[facility] Appointment Type:PC OV Follow Up Future Scheduled Tests Laboratory* Complete Blood Count 04/17/24 [facility] Evaluation + Plan note Future Appointments Appointment Date:07/31/2024 10:00:00 AM Scheduled Provider:KRISTAL DESAI MD Location:[facility] Appointment Type:ENDO OV Appointment Date:08/27/2024 08:00:00 PM Scheduled Provider: Location:[facility] Appointment Type:SL PSG (Polysomnograph) Appointment Date:09/21/2024 09:00:00 AM Scheduled Provider:DEBBI BEE Location:[facility] Appointment Type:CV ANNUAL CAMPAIGN MANAGER Appointment Date:10/24/2024 09:00:00 AM Scheduled Provider:ROSCOE UMANZOR MD Location:[facility] Appointment Type:PC OV Follow Up Future Scheduled Tests Laboratory* TSH with Reflex to FT4 04/27/24 * Complete Blood Count 04/17/24 [facility] Evaluation note* Diagnosis Shortness of breath Cough [facility] Diagnosis Right hip pain Pain in joint, pelvic region and thigh [facility]* Diagnosis Acute cystitis with hematuria Acute cystitis documented in this encounter [facility] note* Diagnosis Acute cystitis with hematuria Acute cystitis documented in this encounter [facility] note* Diagnosis Dysuria documented in this encounter [facility] note* Diagnosis Type 1 diabetes mellitus with hyperglycemia (HCC) Type I (juvenile type) diabetes mellitus without mention of complication, not stated as uncontrolled Elevated liver enzymes Nonspecific elevation of levels of transaminase or lactic acid dehydrogenase (LDH) Screening for HIV (human immunodeficiency virus) Special screening examination for other specified viral diseases Acquired hypothyroidism Unspecified hypothyroidism documented in this encounter [facility] note* Diagnosis Chronic right hip pain Pain in joint, pelvic region and thigh documented in this encounter [facility] note* Diagnosis Chronic right hip pain Pain in joint, pelvic region and thigh documented in this encounter [facility] note* Diagnosis Type 1 diabetes mellitus without complication (HCC) Type I (juvenile type) diabetes mellitus without mention of complication, not stated as uncontrolled Acquired hypothyroidism Unspecified hypothyroidism Chronic fatigue Other malaise and fatigue documented in this encounter [facility] note* Diagnosis Acquired hypothyroidism Unspecified hypothyroidism documented in this encounter [facility] note* Diagnosis Subvalvar aortic stenosis Congenital subaortic stenosis LVH (left ventricular hypertrophy) Cardiomegaly [facility]* Diagnosis Chest pain, unspecified type- Primary [facility] Work [facility]: [facility]* Diagnosis Subaortic membrane- Primary Congenital subaortic stenosis Shortness of breath Aortic valve disorder Aortic valve disorders documented in this encounter [facility] note* Diagnosis Subaortic membrane Congenital subaortic stenosis Shortness of breath Aortic valve disorder Aortic valve disorders documented in this encounter [facility] note* Diagnosis Subaortic membrane- Primary Congenital subaortic stenosis documented in this encounter [facility] note* Diagnosis Subaortic membrane- Primary Congenital subaortic stenosis Diabetes mellitus type 1, controlled, without complications (HCC) Type I (juvenile type) diabetes mellitus without mention of complication, not stated as uncontrolled Hypothyroidism, unspecified type Pre-operative cardiovascular examination documented in this encounter [facility] note* Diagnosis Subaortic membrane- Primary Congenital subaortic stenosis 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 I (juvenile type) diabetes mellitus with neurological manifestations, not stated as uncontrolled Dyslipidemia Other and unspecified hyperlipidemia Obesity (BMI 30-39.9) Obesity, unspecified Dyspnea, unspecified type Ex-smoker Personal history of tobacco use, presenting hazards to health documented in this encounter [facility] note* Diagnosis Pre-op exam- Primary Preoperative examination, unspecified Dyspnea, unspecified type Subaortic membrane Congenital subaortic stenosis Diabetes mellitus type 1, controlled, without complications (HCC) Type I (juvenile type) diabetes mellitus without mention of complication, not stated as uncontrolled Hypothyroidism, unspecified type Pre-operative cardiovascular examination [facility] Type 1 diabetes mellitus without complication (HCC)- Primary Type I (juvenile type) diabetes mellitus without mention of complication, not stated as uncontrolled Type 1 diabetes mellitus with hyperglycemia (HCC) Type I (juvenile type) diabetes mellitus without mention of complication, not stated as uncontrolled Insulin pump status Subaortic membrane Congenital subaortic stenosis Diabetes mellitus type 1, controlled, without complications (HCC) Type I (juvenile type) diabetes mellitus without mention of complication, not stated as uncontrolled Hypothyroidism, unspecified type Pre-operative cardiovascular examination [facility] Diagnosis Encounter for preoperative anesthesiology assessment for cardiac surgery- Primary Subaortic membrane Congenital subaortic stenosis Diabetes mellitus type 1, controlled, without complications (HCC) Type I (juvenile type) diabetes mellitus without mention of complication, not stated as uncontrolled Hypothyroidism, unspecified type Pre-operative cardiovascular examination [facility] Diagnosis Pre-op testing- Primary Preoperative examination, unspecified Subaortic membrane Congenital subaortic stenosis Diabetes mellitus type 1, controlled, without complications (HCC) Type I (juvenile type) diabetes mellitus without mention of complication, not stated as uncontrolled Hypothyroidism, unspecified type Pre-operative cardiovascular examination [facility] Diagnosis Pre-operative cardiovascular examination- Primary [facility]* Diagnosis Atelectasis- Primary Pulmonary collapse Nonrheumatic mitral valve regurgitation [facility]* Diagnosis Atelectasis- Primary Pulmonary collapse Post-op pain Other acute postoperative pain 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 I (juvenile type) diabetes mellitus with neurological manifestations, not stated as uncontrolled [facility] Diagnosis Wound drainage- Primary Open wound(s) (multiple) of unspecified site(s), without mention of complication [facility] Diagnosis Localized swelling, mass and lump, trunk- Primary S/P AVR (aortic valve replacement) Heart valve replaced by other means S/P TVR (tricuspid valve repair) Other postprocedural status Wound infection after surgery Other postoperative infection [facility]* Diagnosis Visit for wound check- Primary Encounter for other specified aftercare Wound disruption, post-op, skin, initial encounter Post-op pain Other acute postoperative pain [facility]* Diagnosis Type 1 diabetes mellitus without complication (HCC)- Primary Type I (juvenile type) diabetes mellitus without mention of complication, not stated as uncontrolled Type 1 diabetes mellitus without complication (HCC)- Primary Type I (juvenile type) diabetes mellitus without mention of complication, not stated as uncontrolled [facility]* Diagnosis NO SHOW- Primary documented in this encounter [facility] note* Diagnosis Type 1 diabetes mellitus without complication (HCC) Type I (juvenile type) diabetes mellitus without mention of complication, not stated as uncontrolled [facility] Diagnosis Dental infection- Primary Acute apical periodontitis of pulpal origin Medication refill Issue of repeat prescriptions SOB (shortness of breath) Shortness of breath documented in this encounter [facility] note* Diagnosis Post-op pain Other acute postoperative pain [facility] department note* Diagnosis Type 1 diabetes mellitus with hyperglycemia (HCC)- Primary Type I (juvenile type) diabetes mellitus without mention of complication, not stated as uncontrolled Insulin pump status High risk medication use Encounter for long-term (current) use of other medications [facility] Diagnosis Type 1 diabetes mellitus with hyperglycemia (HCC)- Primary Type I (juvenile type) diabetes mellitus without mention of complication, not stated as uncontrolled documented in this encounter [facility] note* Diagnosis Type 1 diabetes mellitus with hyperglycemia (HCC) Type I (juvenile type) diabetes mellitus without mention of complication, not stated as uncontrolled [facility]* Diagnosis Type 1 diabetes mellitus with diabetic polyneuropathy (HCC)- Primary Type I (juvenile type) diabetes mellitus with neurological manifestations, not stated as uncontrolled [facility]* Diagnosis Type 1 diabetes mellitus with hyperglycemia (HCC) Type I (juvenile type) diabetes mellitus without mention of complication, not stated as uncontrolled documented in this encounter [facility] note* Diagnosis Dyspnea on exertion- Primary Other dyspnea and respiratory abnormality Subvalvar aortic stenosis Congenital subaortic stenosis S/P AVR (aortic valve replacement) Heart valve replaced by other means Subvalvular aortic stenosis Congenital subaortic stenosis Substance abuse (CMS/HCC) (HCC) Other, mixed, or unspecified nondependent drug abuse, unspecified History of drug abuse ([facility]/HCC) (HCC) Other, mixed, or unspecified nondependent drug abuse, in remission documented in this encounter [facility] note* Diagnosis Medication refill- Primary Issue of repeat prescriptions documented in this encounter [facility] note* Diagnosis Simple chronic bronchitis (HCC)- Primary Simple chronic bronchitis Type 1 diabetes mellitus with hyperglycemia (HCC) Type I (juvenile type) diabetes mellitus without mention of complication, not stated as uncontrolled documented in this encounter [facility] note* Diagnosis 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 I (juvenile type) diabetes mellitus with neurological manifestations, not stated as uncontrolled Insulin pump status documented in this encounter [facility] note* Diagnosis No-show for appointment- Primary documented in this encounter [facility] note* Diagnosis Simple chronic bronchitis (HCC) Simple chronic bronchitis Type 1 diabetes mellitus with hyperglycemia (HCC) Type I (juvenile type) diabetes mellitus without mention of complication, not stated as uncontrolled documented in this encounter [facility] note* Diagnosis Type 1 diabetes mellitus with diabetic polyneuropathy (HCC)- Primary Type I (juvenile type) diabetes mellitus with neurological manifestations, not stated as uncontrolled Simple chronic bronchitis (HCC) Simple chronic bronchitis History of asthma Personal history of other diseases of respiratory system Shortness of breath documented in this encounter [facility] note* Diagnosis Type 1 diabetes mellitus with hyperglycemia (HCC) Type I (juvenile type) diabetes mellitus without mention of complication, not stated as uncontrolled documented in this encounter [facility] note* Diagnosis Type 1 diabetes mellitus with diabetic polyneuropathy (HCC)- Primary Type I (juvenile type) diabetes mellitus with neurological manifestations, not stated as uncontrolled documented in this encounter [facility] note* Diagnosis Type 1 diabetes mellitus with hyperglycemia (HCC)- Primary Type I (juvenile type) diabetes mellitus without mention of complication, not stated as uncontrolled High risk medication use Encounter for long-term (current) use of other medications Illicit drug use Other, mixed, or unspecified nondependent drug abuse, unspecified documented in this encounter [facility] note* Diagnosis 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 I (juvenile type) diabetes mellitus with neurological manifestations, not stated as uncontrolled Simple chronic bronchitis (HCC) Simple chronic bronchitis History of asthma Personal history of other diseases of respiratory system Shortness of breath [facility]* Diagnosis Type 1 diabetes mellitus with hyperglycemia (HCC) Type I (juvenile type) diabetes mellitus without mention of complication, not stated as uncontrolled 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 I (juvenile type) diabetes mellitus with neurological manifestations, not stated as uncontrolled Insulin pump status [facility]* Diagnosis Type 1 diabetes mellitus with hyperglycemia (HCC)- Primary Type I (juvenile type) diabetes mellitus without mention of complication, not stated as uncontrolled High risk medication use Encounter for long-term (current) use of other medications Illicit drug use Other, mixed, or unspecified nondependent drug abuse, unspecified Insulin pump status documented in this encounter [facility] noteNo assessment information availableWLutheran Hospital Work Phone: Evaluation note* Diagnosis FALGUNI (obstructive sleep apnea)- Primary Obstructive sleep apnea (adult) (pediatric) Dyspnea on exertion Other dyspnea and respiratory abnormality Subaortic membrane S/P AVR (aortic valve replacement) Heart valve replaced by other means Substance abuse (CMS/HCC) (HCC) Other, mixed, or unspecified nondependent drug abuse, unspecified Mixed hyperlipidemia documented in this encounter [facility] note* Diagnosis NO SHOW- Primary documented in this encounter [facility] note* Diagnosis Simple chronic bronchitis (HCC) Simple chronic bronchitis History of asthma Personal history of other diseases of respiratory system Shortness of breath documented in this encounter [facility] note* Diagnosis 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 I (juvenile type) diabetes mellitus with neurological manifestations, not stated as uncontrolled Type 1 diabetes mellitus with hyperglycemia (HCC) Type I (juvenile type) diabetes mellitus without mention of complication, not stated as uncontrolled documented in this encounter [facility] note* Diagnosis 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 I (juvenile type) diabetes mellitus with neurological manifestations, not stated as uncontrolled documented in this encounter [facility] note* Diagnosis Type 1 diabetes mellitus with diabetic polyneuropathy (HCC)- Primary Type I (juvenile type) diabetes mellitus with neurological manifestations, not stated as uncontrolled Acquired hypothyroidism Unspecified hypothyroidism Simple chronic bronchitis (HCC) Simple chronic bronchitis Mixed anxiety and depressive disorder Dysthymic disorder Vitamin D deficiency Unspecified vitamin D deficiency Screening for prostate cancer Special screening for malignant neoplasm of prostate documented in this encounter [facility] note* Diagnosis Vitamin D deficiency- Primary Unspecified vitamin D deficiency 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 I (juvenile type) diabetes mellitus with neurological manifestations, not stated as uncontrolled documented in this encounter [facility] note* Diagnosis APPOINTMENT CANCELLED- Primary documented in this encounter [facility] note* Diagnosis Type 1 diabetes mellitus with diabetic polyneuropathy (HCC)- Primary Type I (juvenile type) diabetes mellitus with neurological manifestations, not stated as uncontrolled Type 1 diabetes mellitus with hyperglycemia (HCC) Type I (juvenile type) diabetes mellitus without mention of complication, not stated as uncontrolled Acquired hypothyroidism Unspecified hypothyroidism documented in this encounter [facility] note* Diagnosis 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 I (juvenile type) diabetes mellitus with neurological manifestations, not stated as uncontrolled documented in this encounter [facility] note* Diagnosis 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 I (juvenile type) diabetes mellitus with neurological manifestations, not stated as uncontrolled documented in this encounter [facility] note* Diagnosis Medication refill- Primary Issue of repeat prescriptions 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 I (juvenile type) diabetes mellitus with neurological manifestations, not stated as uncontrolled Acquired hypothyroidism Unspecified hypothyroidism documented in this encounter [facility] note* Diagnosis 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 I (juvenile type) diabetes mellitus with neurological manifestations, not stated as uncontrolled documented in this encounter [facility] note* Diagnosis 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 Subaortic membrane S/P AVR (aortic valve replacement) Heart valve replaced by other means History of cocaine use documented in this encounter [facility] note* Diagnosis DKA, type 1, not at goal (CMS/HCC) (HCC)- Primary Acute kidney injury (CMS/HCC) (HCC) Diabetic ketoacidosis without coma associated with type 1 diabetes mellitus (CMS/HCC) (HCC) Lactic acidosis Acidosis DKA, type 1, not at goal (CMS/HCC) (HCC) documented in this encounter [facility] note* Diagnosis Nonrheumatic aortic valve stenosis- Primary Aortic valve disorders documented in this encounter [facility] note* Diagnosis Aortic valve disorder- Primary Aortic valve disorders documented in this encounter [facility] note* Diagnosis Aortic valve insufficiency, etiology of cardiac valve disease unspecified- Primary Tricuspid valve insufficiency, unspecified etiology Mitral valve insufficiency, unspecified etiology documented in this encounter [facility] note* Diagnosis S/P AVR (aortic valve replacement)- Primary Heart valve replaced by other means 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 Substance abuse (CMS/HCC) (HCC) Other, mixed, or unspecified nondependent drug abuse, unspecified Dyspnea on exertion Other dyspnea and respiratory abnormality documented in this encounter [facility] note* Diagnosis S/P transesophageal echocardiogram ([facility])- Primary documented in this encounter [facility] note* Diagnosis Aortic valve disorder Aortic valve disorders documented in this encounter [facility] note* Diagnosis Aortic valve disorder Aortic valve disorders documented in this encounter [facility] note* Diagnosis Retained tooth root- Primary Retained dental root Type 1 diabetes mellitus without complication (HCC) Type I (juvenile type) diabetes mellitus without mention of complication, not stated as uncontrolled Acquired hypothyroidism Unspecified hypothyroidism Pre-operative cardiovascular examination Aortic valve disorder Aortic valve disorders Dental caries Unspecified dental caries Type 1 diabetes mellitus without complication (HCC) Type I (juvenile type) diabetes mellitus without mention of complication, not stated as uncontrolled Acquired hypothyroidism Unspecified hypothyroidism Pre-operative cardiovascular examination Aortic valve disorder Aortic valve disorders documented in this encounter [facility] note* Diagnosis Pre-operative cardiovascular examination- Primary Type 1 diabetes mellitus without complication (HCC) Type I (juvenile type) diabetes mellitus without mention of complication, not stated as uncontrolled Acquired hypothyroidism Unspecified hypothyroidism Aortic valve disorder Aortic valve disorders Type 1 diabetes mellitus without complication (HCC) Type I (juvenile type) diabetes mellitus without mention of complication, not stated as uncontrolled Acquired hypothyroidism Unspecified hypothyroidism Pre-operative cardiovascular examination Aortic valve disorder Aortic valve disorders documented in this encounter [facility] note* Diagnosis Type 1 diabetes mellitus without complication (HCC)- Primary Type I (juvenile type) diabetes mellitus without mention of complication, not stated as uncontrolled Acquired hypothyroidism Unspecified hypothyroidism Aortic valve disorder Aortic valve disorders Class 1 obesity due to excess calories with serious comorbidity and body mass index (BMI) of 31.0 to 31.9 in adult Type 1 diabetes mellitus without complication (HCC) Type I (juvenile type) diabetes mellitus without mention of complication, not stated as uncontrolled Acquired hypothyroidism Unspecified hypothyroidism Pre-operative cardiovascular examination Aortic valve disorder Aortic valve disorders [facility]* Diagnosis Type 1 diabetes mellitus without complication (HCC) Type I (juvenile type) diabetes mellitus without mention of complication, not stated as uncontrolled Acquired hypothyroidism Unspecified hypothyroidism Pre-operative cardiovascular examination Aortic valve disorder Aortic valve disorders Type 1 diabetes mellitus without complication (HCC) Type I (juvenile type) diabetes mellitus without mention of complication, not stated as uncontrolled Acquired hypothyroidism Unspecified hypothyroidism Pre-operative cardiovascular examination Aortic valve disorder Aortic valve disorders [facility]* Diagnosis Pre-operative cardiovascular examination- Primary Type 1 diabetes mellitus without complication (HCC) Type I (juvenile type) diabetes mellitus without mention of complication, not stated as uncontrolled Acquired hypothyroidism Unspecified hypothyroidism Aortic valve disorder Aortic valve disorders Severe aortic stenosis Aortic valve disorders Chronic pain syndrome Primary hypertension Unspecified essential hypertension Subaortic membrane (HCC) Congenital subaortic stenosis Aortic valve disorder Aortic valve disorders Type 1 diabetes mellitus without complication (HCC) Type I (juvenile type) diabetes mellitus without mention of complication, not stated as uncontrolled Acquired hypothyroidism Unspecified hypothyroidism Pre-operative cardiovascular examination Aortic valve disorder Aortic valve disorders documented in this encounter [facility] note* Diagnosis Encounter for preoperative anesthesiology assessment for cardiac surgery- Primary Aortic valve disorder Aortic valve disorders Type 1 diabetes mellitus without complication (HCC) Type I (juvenile type) diabetes mellitus without mention of complication, not stated as uncontrolled Acquired hypothyroidism Unspecified hypothyroidism Pre-operative cardiovascular examination Aortic valve disorder Aortic valve disorders [facility]* Diagnosis Pre-op testing- Primary Preoperative examination, unspecified Aortic valve disorder Aortic valve disorders Type 1 diabetes mellitus without complication (HCC) Type I (juvenile type) diabetes mellitus without mention of complication, not stated as uncontrolled Acquired hypothyroidism Unspecified hypothyroidism Pre-operative cardiovascular examination Aortic valve disorder Aortic valve disorders [facility]* Diagnosis History of cardiac cath [Z98.890]- Primary Other postprocedural status documented in this encounter [facility] note* Diagnosis Surgery follow-up- Primary Follow-up examination, following unspecified surgery documented in this encounter [facility] note* Diagnosis Surgery follow-up Follow-up examination, following unspecified [facility] S/P [facility]R- Primary Heart valve replaced by other means H/O heart valve replacement with mechanical valve Heart valve replaced by other means Atelectasis Pulmonary collapse Dyspnea, unspecified type ABLA (acute blood loss anemia) Thrombocytosis Essential thrombocythemia Pleural effusion Unspecified pleural effusion Junctional rhythm Other specified cardiac dysrhythmias Hyperlipidemia, unspecified hyperlipidemia type [facility]* Diagnosis Pleural effusion- Primary Unspecified pleural effusion [facility]* Diagnosis Nonrheumatic aortic valve stenosis- Primary Aortic valve disorders S/P AVR (aortic valve replacement) Heart valve replaced by other means long-term current use of anticoagulant therapy Long-term (current) use of anticoagulants Anticoagulation management encounter Encounter for therapeutic drug monitoring Nonrheumatic mitral valve regurgitation Nonrheumatic tricuspid valve regurgitation Tricuspid valve disorders, specified as nonrheumatic Postoperative pulmonary edema (HCC) Acute edema of lung, unspecified Pleural effusion on right Unspecified pleural effusion Former smoker Personal history of tobacco use, presenting hazards to health 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 I (juvenile type) diabetes mellitus with neurological manifestations, not stated as uncontrolled Insulin pump in place Insulin pump status Acquired hypothyroidism Unspecified hypothyroidism Chronic anemia Anemia, unspecified Dyslipidemia Other and unspecified hyperlipidemia Overweight with body mass index (BMI) of 29 to 29.9 in adult History of drug abuse (HCC) Other, mixed, or unspecified nondependent drug abuse, in remission History of asthma Personal history of other diseases of respiratory system Mixed anxiety and depressive disorder Dysthymic disorder Vitamin D deficiency Unspecified vitamin D deficiency documented in this encounter [facility] note* Diagnosis Aortic valve disorder- Primary Aortic valve disorders S/P AVR (aortic valve replacement) Heart valve replaced by other means [facility]* Diagnosis long term (current) use of anticoagulants- Primary Long-term (current) use of anticoagulants [facility]* Diagnosis long-term (current) use of anticoagulants- Primary Long-term (current) use of anticoagulants Anticoagulation management encounter Encounter for therapeutic drug monitoring long-term current use of anticoagulant therapy Long-term (current) use of anticoagulants History of mechanical aortic valve replacement Heart valve replaced by other means [facility]* Diagnosis Adhesive capsulitis of right shoulder- Primary Adhesive capsulitis of shoulder [facility] Diagnosis Anticoagulation management encounter- Primary Encounter for therapeutic drug monitoring long-term current use of anticoagulant therapy Long-term (current) use of anticoagulants History of mechanical aortic valve replacement Heart valve replaced by other means long-term (current) use of anticoagulants Long-term (current) use of anticoagulants [facility] Diagnosis Anticoagulation management encounter- Primary Encounter for therapeutic drug monitoring long-term current use of anticoagulant therapy Long-term (current) use of anticoagulants History of mechanical aortic valve replacement Heart valve replaced by other means long term (current) use of anticoagulants Long-term (current) use of anticoagulants [facility] Diagnosis Iron deficiency anemia secondary to inadequate dietary iron intake- Primary [facility]* Diagnosis 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- Primary [facility]* Diagnosis Anticoagulation management encounter- Primary Encounter for therapeutic drug monitoring long-term current use of anticoagulant therapy Long-term (current) use of anticoagulants History of mechanical aortic valve replacement Heart valve replaced by other means long-term (current) use of anticoagulants Long-term (current) use of anticoagulants [facility]* Diagnosis Nonrheumatic aortic valve stenosis- Primary Aortic valve disorders S/P AVR (aortic valve replacement) Heart valve replaced by other means Tachycardia Tachycardia, unspecified Pleural effusion on right Unspecified pleural effusion Iron deficiency anemia secondary to inadequate dietary iron intake Acquired hypothyroidism Unspecified hypothyroidism 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 Type 2 diabetes mellitus without complication, with long-term current use of insulin ([facility]) [facility]* Diagnosis Pleural effusion on right Unspecified pleural effusion [facility] Diagnosis Anticoagulation management encounter- Primary Encounter for therapeutic drug monitoring long-term current use of anticoagulant therapy Long-term (current) use of anticoagulants History of mechanical aortic valve replacement Heart valve replaced by other means long term (current) use of anticoagulants Long-term (current) use of anticoagulants [facility] Diagnosis Anticoagulation management encounter- Primary Encounter for therapeutic drug monitoring long-term current use of anticoagulant therapy Long-term (current) use of anticoagulants History of mechanical aortic valve replacement Heart valve replaced by other means long-term (current) use of anticoagulants Long-term (current) use of anticoagulants [facility]* Diagnosis H/O mechanical aortic valve replacement- Primary Heart valve replaced by other means [facility]* Diagnosis Anticoagulation management encounter- Primary Encounter for therapeutic drug monitoring long-term current use of anticoagulant therapy Long-term (current) use of anticoagulants History of mechanical aortic valve replacement Heart valve replaced by other means long term (current) use of anticoagulants Long-term (current) use of anticoagulants [facility]* Diagnosis Simple chronic bronchitis (HCC) Simple chronic bronchitis History of asthma Personal history of other diseases of respiratory system Shortness of breath [facility] Diagnosis Pain in both lower extremities Type 1 diabetes mellitus with diabetic neuropathy (HCC) Type I (juvenile type) diabetes mellitus with neurological manifestations, not stated as uncontrolled long-term (current) use of insulin (HCC) History of heart surgery Personal history of surgery to heart and great vessels, presenting hazards to health [facility]* Diagnosis Nonrheumatic aortic valve stenosis Aortic valve disorders S/P AVR (aortic valve replacement) Heart valve replaced by other means long term current use of anticoagulant therapy Long-term (current) use of anticoagulants [facility]* Diagnosis long term current use of anticoagulant therapy- Primary Long-term (current) use of anticoagulants History of mechanical aortic valve replacement Heart valve replaced by other means long term (current) use of anticoagulants Long-term (current) use of anticoagulants Nonrheumatic aortic valve stenosis Aortic valve disorders S/P AVR (aortic valve replacement) Heart valve replaced by other means [facility]* Diagnosis History of aortic valve stenosis- Primary Personal history of other diseases of circulatory system S/P AVR (aortic valve replacement) Heart valve replaced by other means History of mechanical aortic valve replacement Heart valve replaced by other means long term current use of anticoagulant therapy Long-term (current) use of anticoagulants Exertional dyspnea Other dyspnea and respiratory abnormality Peripheral edema Edema Iron deficiency anemia secondary to inadequate dietary iron intake 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 I (juvenile type) diabetes mellitus with neurological manifestations, not stated as uncontrolled [facility]* Diagnosis Onset Date Resolution Status Admit Date Cervical myelopathy acute Septe 2024 1:18pm Cervical stenosis of spine acute March 15, 2025 1:18pm Degenerative disc disease, cervical acute March 15 1:18pm [facility] Work Phone: Evaluation note* Diagnosis H/O mechanical aortic valve replacement- Primary S/P aortic valve replacement Heart valve replaced by other means History of cocaine use Mixed hyperlipidemia Subvalvar aortic stenosis Congenital subaortic stenosis [facility] Diagnosis Anticoagulation management encounter- Primary Encounter for therapeutic drug monitoring long-term current use of anticoagulant therapy Long-term (current) use of anticoagulants History of mechanical aortic valve replacement Heart valve replaced by other means long-term (current) use of anticoagulants Long-term (current) use of anticoagulants documented in this encounter [facility] note* Diagnosis Type 1 diabetes mellitus with diabetic polyneuropathy (HCC)- Primary Type I (juvenile type) diabetes mellitus with neurological manifestations, not stated as uncontrolled Substance abuse (HCC) Other, mixed, or unspecified nondependent drug abuse, unspecified History of mechanical aortic valve replacement Heart valve replaced by other means Hypercholesterolemia Pure hypercholesterolemia Vitamin D deficiency Unspecified vitamin D deficiency long-term (current) use of anticoagulants Long-term (current) use of anticoagulants documented in this encounter [facility] note* Diagnosis Anticoagulation management encounter- Primary Encounter for therapeutic drug monitoring long-term current use of anticoagulant therapy Long-term (current) use of anticoagulants History of mechanical aortic valve replacement Heart valve replaced by other means long term (current) use of anticoagulants Long-term (current) use of anticoagulants documented in this encounter [facility] note* Diagnosis 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 I (juvenile type) diabetes mellitus with neurological manifestations, not stated as uncontrolled documented in this encounter [facility] course Narrative No data available for this section [facility] Hospital Discharge instructions* Attachments The following attachments cannot be sent through Care Everywhere. * Chest Pain (Algerian) documented in this [facility] Work Phone: Hospital Discharge instructions No data available for this section [facility] Hospital Discharge instructions Additional Instructions Take Tylenol every 6 hours, ibuprofen every 8 hours. Maintain hydration keep a close eye on your blood sugars.[facility] Work Phone: Progress note No data available for this section [facility] Reason for referral (narrative)* Procedure Authorization (Routine) Status Reason Specialty Diagnoses / Procedures Re ferred By Contact Referred To Contact Closed Radiology Diagnoses Chronic right hip pain Procedures FL Pre MRI/CT Hip Injection INJECTION HIP ARTHROGRAPHY W/O ANESTHESIA CHG FLUOROSCOPIC GUIDANCE NEEDLE PLACEMENT ADD ON Kaela Fatima PA-C [address] [place] [address] [address] Electronically signed by Kaela Fatima PA-C at [facility] for referral (narrative)* Procedure Authorization (Routine) Status Reason Specialty Diagnoses / Procedures Referred By Contact Referred To Contact Closed Radiology Diagnoses Chronic right hip pain Procedures MRI Arthrogram Hip Right With IV Contrast Kaela Fatima PA-C [address] [place] [address] [address] Electronically signed by Kaela Fatima PA-C at [facility] for referral (narrative)* Outpatient Procedure (Routine) - Pending Review Specialty Diagnoses / Procedures Referred By Contac t Referred To Contact [facility] Diagnoses Subaortic membrane Diabetes mellitus type 1, controlled, without complications (HCC) Hypothyroidism, unspecified type Pre-operative cardiovascular examination Procedures LUNG DIFFUSION CAPACITY (DLCO) DIFFUSING CAPACITY Roscoe Arias MD [address] [place] [address] [facility] [address] [place] [address] Referral ID Status Reason Start Date Expiration Date Visits Requested Visits Authorized [id number] Pending Review Auto-Generat ed Referral 01/01/2022 01/31/2023 1 1 * Outpatient Procedure (Routine) - Pending Review Specialty Diagnoses / Procedures Referred By Aidaac t Referred To Contact [facility] Diagnoses Subaortic membrane Diabetes mellitus type 1, controlled, without complications (HCC) Hypothyroidism, unspecified type Pre-operative cardiovascular examination Procedures SPIROMETRY BASELINE ONLY SPMTRY W/VC EXPIRATORY DIRK W/WO MXML VOL VNTJ Roscoe Arias MD [address] [place] [address] [facility] [address] [place] [address] Referral ID Status Reason Start Date Expiration Date Visits Requested Visits Authorized [id number] Pending Review Auto-Generat ed Referral 01/01/2022 01/31/2023 1 1 * MRI/CT (Routine) - Pending Review Specialty Diagnoses / Procedures Referred By Kristie parada Referred To Contact MR IMAGING Diagnoses Subaortic membrane Diabetes mellitus type 1, controlled, without complications (HCC) Hypothyroidism, unspecified type Pre-operative cardiovascular examination Procedures MRI CARDIAC VELOCITY FLOW MAP CARDIAC MRI FOR VELOCITY FLOW MAPPING Roscoe Arias MD [address] [place] [address] Mr Imaging Referral ID Status Reason Start Date Expiration Date Visits Requested Visits Authorized [id number] Pending Review Auto-Generat ed Referral 01/01/2022 01/31/2023 1 1 * MRI/CT (Routine) - Pending Review Specialty Diagnoses / Procedures Referred By Kristie parada Referred To Contact MR IMAGING Diagnoses Subaortic membrane Diabetes mellitus type 1, controlled, without complications (HCC) Hypothyroidism, unspecified type Pre-operative cardiovascular examination Procedures MRI CARDIAC MORPH FUNC WO/W IVCON CARDIAC MRI W/WO CONTRAST & FURTHER SEQ Roscoe Arias MD [address] [place] [address] Mr Imaging Referral ID Status Reason Start Date Expiration Date Visits Requested Visits Authorized [id number] Pending Review Auto-Generat ed Referral 01/01/2022 01/31/2023 1 1 * Consult, Test, Treat (Routine) - Authorized Specialty Diagnoses / Procedures Referred By Kristie t Referred To Contact Endocrinology Diagnoses Subaortic membrane Diabetes mellitus type 1, controlled, without complications (HCC) Hypothyroidism, unspecified type Pre-operative cardiovascular examination Procedures CONSULT TO ENDOCRINOLOGY OFFICE/OUTPATIENT [facility] 60-74 MINUTES Roscoe Arias MD [address] [place] [address] Referral ID Status Reason Start Date Expiration Date Visits Requested Visits Authorized [id number] Authorized PCP Requested Referral 01/01/2022 01/01/2023 1 1 * Consult, Test, Treat (Routine) - Authorized Specialty Diagnoses / Procedures Referred By Kristie parada Referred To Contact Cardiac Surg Diagnoses Subaortic membrane Diabetes mellitus type 1, controlled, without complications (HCC) Hypothyroidism, unspecified type Pre-operative cardiovascular examination Procedures CARDIOTHORACIC PREOP EVALUATION OFFICE/OUTPATIENT [facility] 60-74 MINUTES Roscoe Arias MD [address] [place] [address] Referral ID Status Reason Start Date Expiration Date Visits Requested Visits Authorized [id number] Authorized PCP Requested Referral 01/01/2022 01/01/2023 1 1 [facility] for referral (narrative)* Outpatient Procedure (Routine) - Closed Specialty Diagnoses / Procedures Referred By Kristie t Referred To Contact [facility] Diagnoses Subaortic membrane Ex-smoker Dyspnea, unspecified type Procedures STRESS ECHO TREADMILL ECHO TTHRC R-T 2D W/WO M-MODE COMPLETE REST&ST Abhinav Garrett MD [address] [place] [address] [place] [address] Referral ID Status Reason Start Date Expiration Date V isits Requested Visits Authorized [id number] Closed Auto-Generate d Referral 12/31/2021 07/10/2022 1 1 * Outpatient Procedure (Routine) - Authorized Specialty Diagnoses / Procedures Referred By Contac t Referred To Contact [facility] Diagnoses Ex-smoker Dyspnea, unspecified type Procedures LUNG DIFFUSION CAPACITY (DLCO) DIFFUSING CAPACITY Abhinav Garrett MD [address] [place] [address] [place] [address] Referral ID Status Reason Start Date Expiration Date Visits Requested Visits Authorized [id number] Authorized Auto-Generat ed Referral 12/31/2021 01/30/2023 1 1 * Outpatient Procedure (Routine) - Authorized Specialty Diagnoses / Procedures Referred By Contac t Referred To Contact [facility] Diagnoses Ex-smoker Procedures SPIROMETRY - BASELINE AND POST DILATOR BRNCDILAT RSPSE SPMTRY PRE&POST-BRNCDILAT ADMN Abhinav Garrett MD [address] [place] [address] [place] [address] Referral ID Status Reason Start Date Expiration Date Visits Requested Visits Authorized [id number] Authorized Auto-Generat ed Referral 12/31/2021 01/30/2023 1 1 [facility] for referral (narrative)* Outpatient Procedure (Routine) - Pending Review Specialty Diagnoses / Procedures Referred By Contac t Referred To Contact [facility] Diagnoses Atelectasis Nonrheumatic mitral valve regurgitation Procedures ECHO ECHO TTHRC R-T 2D W/WOM-MODE COMPL SPEC&COLR D Abhinav Garrett MD [address] [place] [address] [place] [address] Referral ID Status Reason Start Date Expiration Date Visits Requested Visits Authorized [id number] Pending Review Auto-Generat ed Referral 01/29/2022 01/29/2023 1 1 * Outpatient Procedure (Routine) - Authorized Specialty Diagnoses / Procedures Referred By Contac t Referred To Contact [facility] Diagnoses Atelectasis Nonrheumatic mitral valve regurgitation Procedures ECG COMPLETE ECG ROUTINE ECG W/LEAST 12 LDS W/I&R Abhinav Garrett MD [address] [place] [address] [place] [address] Referral ID Status Reason Start Date Expiration Date Visits Requested Visits Authorized [id number] Authorized Auto-Generat ed Referral 01/29/2022 01/29/2023 1 1 [facility] Consultation (Routine) - Pending Review Specialty Diagnoses / Procedures Referred By Contac t Referred To Contact Sleep Medicine Diagnoses FALGUNI (obstructive sleep apnea) Procedures IA OFFICE/OUTPATIENT [facility] 60-74 MINUTES Luz Maria Perez MD [address] [place] [address], [address] [place] [address] [facility] [address] [facility] [address] [place] [address] Referral ID Status Reason Start Date Expiration Date Visits Requested Visits Authorized [id number] Pending Review Specialty Services Required 3 05/05/2024 1 1 [facility] (narrative)No reason for referral [facility] Work Phone: Reason for referral (narrative)* Transition of Care (Routine) - Authorized Specialty Diagnoses / Procedures Referred By Contac t Referred To Contact [facility] Procedures CARDIOVASCULAR MEDICINE OP FOLLOW UP APPT ORDER Jt King MD [address] [place], [place] [address], [place] [address] Phone: tel: fax: [facility] [address] [place] [address] Referral ID Status Reason Start Date Expiration Date Visits Requested Visits Authorized [id number] Authorized PCP Requested Referral 12/20/2024 12/20/2025 1 1 [facility] for visit Narrative* Procedure Authorization (Routine) Status Reason Specialty Diagnoses / Procedures Re ferred By Contact Referred To Contact Closed Radiology Diagnoses Chronic right hip pain Procedures FL Pre MRI/CT Hip Injection INJECTION HIP ARTHROGRAPHY W/O ANESTHESIA CHG FLUOROSCOPIC GUIDANCE NEEDLE PLACEMENT ADD ON Kaela Fatima PA-C [address] [facility] [address] [place] [address] [address] [facility] for visit Narrative* Procedure Authorization (Routine) Status Reason Specialty Diagnoses / Procedures Referred By Contact Referred To Contact Closed Radiology Diagnoses Chronic right hip pain Procedures MRI Arthrogram Hip Right With IV Contrast Kaela Fatima PA-C [address] [place] [address] [address] [facility] for visit Narrative* Outpatient Procedure (Routine) - Closed Specialty Diagnoses / Procedures Referred By Contac t Referred To Contact [facility] Diagnoses Aortic valve disorder Procedures ECHO TRANSESOPHAGEAL ECHO TRANSESOPHAG R-T 2D W/PRB IMG BENNETT Mcelroy&R Roscoe Arias MD [address] [place] [address] Phone: tel: fax: [facility] [address] [place] [address] Referral ID Status Reason Start Date Expiration Date V isits Requested Visits Authorized [id number] Closed Auto-Generate d Referral 08/17/2024 08/17/2025 1 1 [facility] for visit Narrative* Consult, Test, Treat (Routine) - Authorized Specialty Diagnoses / Procedures Referred By Contac t Referred To Contact Cardiac Surg Diagnoses Aortic valve disorder Procedures CARDIOTHORACIC PREOP EVALUATION OFFICE/OUTPATIENT [facility] 60 MINUTES Roscoe Arias MD [address] [place] [address] Phone: tel: fax: Outpatient Referral [address] [address] Referral ID Status Reason Start Date Expiration Date Visits Requested Visits Authorized [id number] Authorized PCP Requested Referral 07/11/2024 07/10/2025 99 99 [facility] for visit Narrative* Consult, Test, Treat (Routine) - Closed Specialty Diagnoses / Procedures Referred By Contac t Referred To Contact Cardiology Diagnoses Type 1 diabetes mellitus without complication (HCC) Acquired hypothyroidism Pre-operative cardiovascular examination Aortic valve disorder Procedures CONSULT TO CARDIOLOGY OFFICE/OUTPATIENT [facility] 60 MINUTES Roscoe Arias MD [address] [place] [address] Phone: tel: fax: Outpatient Referral [address] [address] Referral ID Status Reason Start Date Expiration Date V isits Requested Visits Authorized [id number] Closed PCP Requested Referral 12/09/2024 07/10/2025 1 1 [facility] Summary Purpose Family History Family Member Condition Maternal Grandmother Diabetes - non-insu jasen dependent Paternal Grandfather Diabetes - insulin dependent Father Alive Mother Alive Mother Arthritis Advance Directives Documents on File Type Date Recorded Patient Supervisor Insulation Expl anation Advance Directives and Living Will Power of Bank Vault Attendant Latest Code Status on File Code Status Date Activated Date Inactivated Comments Full Code 12/20/2018 11:52 AM 12/25/2018 5:03 PM Full Code 12/20/2018 6:14 AM 12/20/2018 8:09 AM Full Code 11/29/2018 7:56 AM 11/29/2018 6:35 PM Full Code 11/29/2018 6:20 AM 11/29/2018 7:55 AM Full Code 11/21/2018 9:10 AM 11/21/2018 4:10 PM Documents on File Type Date Recorded Patient Supervisor Insulation Expl anation Advance Directives and Living Will Power of Bank Vault Attendant Documents on File Type Date Recorded Patient Supervisor Insulation Expl anation ACP-Advance Directive ACP-Power of Bank Vault Attendant Latest Code Status on File Code Status Date Activated Date Inactivated Comments Full Code 12/20/2018 11:52 AM 12/25/2018 5:03 PM Full Code 12/20/2018 6:14 AM 12/20/2018 8:09 AM Full Code 11/29/2018 7:56 AM 11/29/2018 6:35 PM Full Code 11/29/2018 6:20 AM 11/29/2018 7:55 AM Full Code 11/21/2018 9:10 AM 11/21/2018 4:10 PM Documents on File Type Date Recorded Patient Supervisor Insulation Expl anation ACP-Advance Directive ACP-Power of Bank Vault Attendant Latest Code Status on File Code Status Date Activated Date Inactivated Comments Full Code 10/07/2021 6:53 AM 10/07/2021 11:54 AM Full Code 12/20/2018 11:52 AM 12/25/2018 5:03 PM Documents on File Type Date Recorded Patient Supervisor Insulation Expl anation Advance Directive(s) 01/25/2022 3:51 PM Documents on File Type Date Recorded Patient Supervisor Insulation Expl anation Advance Directive(s) 01/25/2022 3:51 PM Documents on File Type Date Recorded Patient Supervisor Insulation Expl anation Advance Directive(s) 02/05/2022 4:02 PM Advance Directive(s) 01/25/2022 3:51 PM Advance Directive Response Recorded Date/ Time Living Will No March 20, 2023 11:51am Power of Bank Vault Attendant No March 11:51am Date Activated Date Inactivated Comments 02/08/2024 10:39 AM 02/10/2024 7:18 PM Question Answer Comments Full Code Order Discussed With: Surrogate Decisi on Maker Date Activated Date Inactivated Comments 02/08/2024 10:39 AM 02/10/2024 7:18 PM Question Answer Comments Full Code Order Discussed With: Surrogate Decisi on Maker Discharge Instructions * Attachments The following attachments cannot be sent through Care Everywhere. * Conjunctivitis (Algerian) * Video: Taking Care of Pinkeye at Home (Algerian) documented in this encounter* Attachments The following attachments cannot be sent through Care Everywhere. * Abscess: Skin (Algerian) * Cellulitis (Algerian) documented in this encounter Assessments Diagnosis Acute bacterial conjunctivitis of both eyes- Primary Diagnosis Cellulitis and abscess of trunk- Primary Reason for Referral Specialty Diagnoses / Procedures Referred By Contac t Referred To Contact CT IMAGING Diagnoses Aortic valve disorder Procedures CTA CHEST (GATED) W IVCON CT ANGIOGRAPHY CHEST W/CONTRAST/NONCONTRAST Roscoe Arias MD [address] [place] [address] Ct Imaging [place] [address] Referral ID Status Reason Start Date Expiration Date Visits Requested Visits Authorized [id number] New Request Auto-Generat ed Referral 08/17/2024 09/16/2025 1 1 Specialty Diagnoses / Procedures Referred By Contac t Referred To Contact [facility] Diagnoses Aortic valve disorder Procedures ECHO TRANSESOPHAGEAL ECHO TRANSESOPHAG R-T 2D W/PRB IMG ACQUISJ I&R Roscoe Arias MD [address] [place] [address] [place] [address] Referral ID Status Reason Start Date Expiration Date Visits Requested Visits Authorized [id number] New Request Auto-Generat ed Referral 08/17/2024 08/17/2025 1 1 Specialty Diagnoses / Procedures Referred By Contac t Referred To Contact [facility] Diagnoses Aortic valve disorder Procedures ECHO ECHO TTHRC R-T 2D W/WOM-MODE COMPL SPEC&COLR D Roscoe Arias MD [address] [facility] [place] [address] [place] [address] Referral ID Status Reason Start Date Expiration Date Visits Requested Visits Authorized [id number] New Request Auto-Generat ed Referral 08/17/2024 08/17/2025 1 1 Specialty Diagnoses / Procedures Referred By Contac t Referred To Contact Cardiac Surg Diagnoses Aortic valve disorder Procedures CARDIOTHORACIC PREOP EVALUATION OFFICE/OUTPATIENT NEW HIGH MDM 60 MINUTES Roscoe Arias MD [address] [place] [address] Referral ID Status Reason Start Date Expiration Date Visits Requested Visits Authorized [id number] Pending Review PCP Requested Referral 08/17/2024 08/17/2025 1 1 Specialty Diagnoses / Procedures Referred By Contac t Referred To Contact Cardiology Diagnoses Aortic valve disorder Procedures CONSULT TO CARDIOLOGY OFFICE/OUTPATIENT [facility] 60 MINUTES Roscoe Arias MD [address] [place] [address] Referral ID Status Reason Start Date Expiration Date Visits Requested Visits Authorized [id number] Pending Review PCP Requested Referral 08/17/2024 08/17/2025 1 1 Specialty Diagnoses / Procedures Referred By Contac t Referred To Contact Diagnoses Type 1 diabetes mellitus with hyperglycemia (HCC) Sruthi Ambrosio, LUMBER HACKER.SENIOR TECHNICAL ARCHITECT [address] [place] [address] Referral ID Status Reason Start Date Expiration Date Visits Re quested Visits Authorized [id number] Closed 1 1 Specialty Diagnoses / Procedures Referred By Contac t Referred To Contact Diagnoses Dental infection Medication refill Procedures ESTABLISH WITH PRIMARY CARE NEW PATIENT OFFICE/OUTPATIENT [facility] 60-74 MINUTES Thais Phelps, LUMBER HACKER.SENIOR TECHNICAL ARCHITECT [address] [place] [address] Referral ID Status Reason Start Date Expiration Date Visits Requested Visits Authorized [id number] Authorized PCP Requested Referral 07/12/2022 07/12/2023 1 1 Specialty Diagnoses / Procedures Referred By Contac t Referred To Contact CT IMAGING Diagnoses Localized swelling, mass and lump, trunk S/P AVR (aortic valve replacement) S/P TVR (tricuspid valve repair) Wound infection after surgery Procedures CT CHEST WO IVCON DIAGNOSTIC COMPUTED TOMOGRAPHY THORAX W/O Courtney Almaguer, LUMBER HACKER.SENIOR TECHNICAL ARCHITECT [address] [place] [address] Ct Imaging Referral ID Status Reason Start Date Expiration Date Visits Requested Visits Authorized [id number] Pending Review Auto-Generat ed Referral 02/17/2022 03/17/2023 1 1 Specialty Diagnoses / Procedures Referred By Aidaac t Referred To Contact CT IMAGING Diagnoses Subaortic membrane Shortness of breath Aortic valve disorder Procedures CT CHEST CARDIAC WO IVCON DIAGNOSTIC COMPUTED TOMOGRAPHY THORAX W/O Roscoe Yancey MD [address] [place] [address] Ct Imaging Referral ID Status Reason Start Date Expiration Date Visits Requested Visits Authorized [id number] Pending Review Auto-Generat ed Referral 11/06/2021 12/06/2022 1 1 Specialty Diagnoses / Procedures Referred By Aidanadir t Referred To Contact [facility] Diagnoses Subaortic membrane Shortness of breath Aortic valve disorder Procedures STRESS ECHO DOBUTAMINE ECHO TTHRC R-T 2D W/WO M-MODE COMPLETE REST&ST Roscoe Arias MD [address] [place] [address] [address] Referral ID Status Reason Start Date Expiration Date Visits Requested Visits Authorized [id number] Pending Review Auto-Generat ed Referral 11/06/2021 11/06/2022 1 1 Specialty Diagnoses / Procedures Referred By Aidaac t Referred To Contact [facility] Diagnoses Subaortic membrane Shortness of breath Aortic valve disorder Procedures ECHO ECHO TTHRC R-T 2D W/WOM-MODE COMPL SPEC&COLR D Roscoe Arias MD [address] [place] [address] [address] Referral ID Status Reason Start Date Expiration Date Visits Requested Visits Authorized [id number] Pending Review Auto-Generat ed Referral 11/06/2021 11/06/2022 1 1 Specialty Diagnoses / Procedures Referred By Aidaac t Referred To Contact [facility] Diagnoses Subaortic membrane Shortness of breath Aortic valve disorder Procedures ECG COMPLETE ECG ROUTINE ECG W/LEAST 12 LDS W/I&R Roscoe Arias MD [address] [place] [address] [facility] [address] [place] [address] Referral ID Status Reason Start Date Expiration Date Visits Requested Visits Authorized [id number] Pending Review Auto-Generat ed Referral 11/06/2021 11/06/2022 1 1 Specialty Diagnoses / Procedures Referred By Contac t Referred To Contact Cardiac Surg Diagnoses Subaortic membrane Shortness of breath Aortic valve disorder Procedures CARDIOTHORACIC PREOP EVALUATION OFFICE/OUTPATIENT [facility] 60-74 MINUTES Roscoe Arias MD [address] [place] [address] Referral ID Status Reason Start Date Expiration Date Visits Requested Visits Authorized [id number] Authorized PCP Requested Referral 11/06/2021 11/06/2022 1 1 Specialty Diagnoses / Procedures Referred By Contac t Referred To Contact Cardiology Diagnoses Subaortic membrane Shortness of breath Aortic valve disorder Procedures CONSULT TO CARDIOLOGY OFFICE/OUTPATIENT [facility] 60-74 MINUTES Roscoe Arias MD [address] [place] [address] Referral ID Status Reason Start Date Expiration Date Visits Requested Visits Authorized [id number] Authorized PCP Requested Referral 11/06/2021 11/06/2022 1 1 Specialty Diagnoses / Procedures Referred By Contac t Referred To Contact Cardiology Diagnoses Subvalvar aortic stenosis LVH (left ventricular hypertrophy) Procedures ECHO Complete 2D W Doppler W Color Erika Taveras S, LUMBER HACKER - SENIOR TECHNICAL ARCHITECT [address] [place] [address] Referral ID Status Reason Start Date Expiration Date Visits Re quested Visits Authorized [id number] Open 08/24/2021 08/24/2022 1 1 Health Concerns Infection Onset Date Last Indicated Resolved Time COVID-19 Rule-Out 01/25/2022 01/25/2022 Infection Onset Date Last Indicated Resolved Time COVID-19 Rule-Out 01/25/2022 01/25/2022 01/25/2022 6:26 PM EDT Chief Complaint and Reason for Visit Chief Complaint COLD SX Chief Complaint Admit Date NECK AND R ARM PAIN December 12, 2024 12:02 pm Chief Complaint Admit Date NECK AND R ARM PAIN December 12, 2024 12:02 pm Radiculopathy, cervical region January 16, 2025 4:24pm HIP/NECK PAIN RX HERE January 17, 2025 2: 54pm Chief Complaint Admit Date NECK AND R ARM PAIN December 12, 2024 12:02 pm Radiculopathy, cervical region January 16, 2025 4:24pm HIP/NECK PAIN RX HERE February 05, 2025 10 :00am CERVICAL SPINE March 15, 2025 1:18pm room 3 March 15, 2025 1:35pm Reason for Visit Admit Date Cervical myelopathy March 15, 2025 1:18pm Cervical stenosis of spine March 1:18pm Degenerative disc disease, cervical Sept ember 2024 1:18pm Reason for Visit Admit Date Cervical myelopathy with cervical radicu lopathy March 15, 2025 1:18pm Additional Source Comments (unrecognized sect ion and content) No Status Records FoundNo Status Records FoundNo Status Records FoundNo Status Records FoundNo Status Records FoundNo Status Records FoundNo Status Records FoundNo Status Records FoundNo Status Records FoundNo Status Records FoundNo Status Records FoundNo Status Records FoundNo Status Records FoundNo Status Records FoundNo Status Records FoundNo Status Records FoundNo Status Records FoundNo Status Records FoundNo Status Records Found INFORMATION SOURCE (unrecogn ized section and content) DATE CREATED AUTHOR 06/19/2018 [facility] DATE CREATED AUTHOR AUTHOR'S ORGANIZ ATION 10/23/2018 [facility] DATE CREATED AUTHOR AUTHOR'S ORGANIZ ATION 09/01/2019 [facility] DATE CREATED AUTHOR AUTHOR'S ORGANIZ ATION 12/10/2019 [facility] DATE CREATED AUTHOR AUTHOR'S ORGANIZ ATION 07/03/2020 [facility] [place] DATE CREATED AUTHOR AUTHOR'S ORGANIZ ATION 10/21/2021 [facility] DATE CREATED AUTHOR AUTHOR'S ORGANIZ ATION 02/03/2022 [facility] DATE CREATED AUTHOR AUTHOR'S ORGANIZ ATION 05/04/2022 [facility] DATE CREATED AUTHOR AUTHOR'S ORGANIZ ATION 02/11/2024 [facility] DATE CREATED AUTHOR AUTHOR'S ORGANIZ ATION 02/21/[address] [facility] DATE CREATED AUTHOR AUTHOR'S ORGANIZ ATION 04/04/2024 [facility] DATE CREATED AUTHOR AUTHOR'S ORGANIZ ATION 07/28/2024 [facility] DATE CREATED AUTHOR AUTHOR'S ORGANIZ ATION 01/17/2025 [facility] DATE CREATED AUTHOR AUTHOR'S ORGANIZ ATION 02/15/2025 [facility] DATE CREATED AUTHOR AUTHOR'S ORGANIZ ATION 03/08/2025 [facility] DATE CREATED AUTHOR AUTHOR'S ORGANIZ ATION 03/17/2025 [facility] DATE CREATED AUTHOR AUTHOR'S ORGANIZ ATION 03/24/2025 [facility] DATE CREATED AUTHOR AUTHOR'S ORGANIZ ATION 03/26/2025 [facility] DATE CREATED AUTHOR AUTHOR'S ORGANIZ ATION 03/26/2025 [facility] Reason for Visit (unrecogniz ed section and content) Reason Comments Pharyngitis Eye Pain Reason Comments Abscess Reason Comments Shortness of Breath Reason Comments External Referrals/resources Reason Comments Insurance Authorization Reason Comments Case Review Reason Comments Radio Main J1 Specialty Diagnoses / Procedures Referred By Contac t Referred To Contact CT IMAGING Diagnoses Subaortic membrane Shortness of breath Aortic valve disorder Procedures CT CHEST CARDIAC WO IVCON DIAGNOSTIC COMPUTED TOMOGRAPHY THORAX W/O Roscoe Yancey MD [address] [place] [address] Ct Imaging Referral ID Status Reason Start Date Expiration Date V isits Requested Visits Authorized [id number] Closed Auto-Generate d Referral 11/06/2021 01/15/2022 1 1 Reason Comments Cardiac Preop Checklist Reason Comments Dyspnea On Exertion Reason Comments Spirometry Specialty Diagnoses / Procedures Referred By Contac t [facility] Diagnoses Subaortic membrane Diabetes mellitus type 1, controlled, without complications (HCC) Hypothyroidism, unspecified type Pre-operative cardiovascular examination Procedures SPIROMETRY BASELINE ONLY SPMTRY W/VC EXPIRATORY DIRK W/WO MXML VOL Roscoe Do MD [address] [place] [address] [facility] [address] [place] [address] Referral ID Status Reason Start Date Expiration Date V isits Requested Visits Authorized [id number] Closed Auto-Generate d Referral 01/01/2022 01/31/2023 1 1 Reason Comments Diabetes Reason Comments Patient Education Reason Comments Pre-Op Exam Reason Comments Post Dc Program Call - Urgent SOB, Bi-La teral Swelling, & Drainage Reason Comments Patient Question Medication Problem Reason Comments Post Dc Program Call - Needs Attn Reason Comments Post Dc Program Call - Needs Attn Reason Comments Post Op Reason Comments Post Dc Program Call - Fyi Post Dc Program Call - Needs Attn Reason Comments Patient Question Dexcom sample Reason Comments Patient Update Dexcom Sensor Sample Kit Reason Comments Refill Request Reason Comments 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 - Other Reason Comments No Show # 1 Reason Onset Date Comments Refill Request 07/07/2022 Reason Comments tooth pain Sxs since last wk, p ain is going into his ear (right) Reason Comments Medication Problem Orders Reason Comments Medication Problem Freestyle [place] 2 Se nsors Reason Comments Insulin Dependent Diabetes Mellitus Reason Comments Medication Problem Needs dexcom G6 sens ors Reason Comments Medication Request Reason Comments No Show # 2 Reason Comments Patient Update Reason Comments Medication Question Reason Onset Date Comments Refill Request 09/30/2022 Reason Comments Follow-up SOB Reason Comments Medication Problem Reason Comments Med Change Request Reason Comments Refill Request Humalog Reason Comments Shortness of Breath Reason Comments Follow Up Breathing problems Reason Comments Patient Question Omnipod, Dexcom Insurance Authorization Omnipod 5 G6 Int ro (Gen 5) kit and Pods --- PENDING Reason Onset Date Comments Refill Request 02/07/2023 Reason Comments Patient Question Reason Onset Date Comments Refill Request Omnipod 5 G6 pod s, Gen 5, and Intro Kit Refill Request 02/07/2023 Reason Comments Letter Reason Comments Insurance Authorization Insulin Degludec --- PENDING Reason Onset Date Comments Refill Request 02/21/2023 Reason Onset Date Comments Refill Request 02/28/2023 Reason Comments Follow-up Reason Onset Date Comments Forms/questionnaires 05/06/2023 Reason Comments Forms Hernandez CMN Reason Comments Appointment No Show # 1 Reason Onset Date Comments Refill Request 05/26/2023 Reason Comments Appointment Reason Onset Date Comments Refill Request 11/18/2023 Reason Onset Date Comments Refill Request 11/22/2023 Reason Comments Follow Up Reason Comments Results Reason Comments Appointment Cancelled Reason Onset Date Comments Refill Request 01/02/2024 Reason Onset Date Comments Refill Request 01/04/2024 Reason Onset Date Comments Insulin Requested by Patient 01/26/2024 Fal se/Inaccurate Medical Information Given By Patient Reason Comments Medication Problem Pt states that he wa s at [facility]. Pt states that he is in addiction and he cannot be placed until he has 30 days of his diabetic medication. Reason Comments 6 Month Follow-up Reason Onset Date Comments Wants to discuss today's discussion 07/15/2022 Reason Onset Date Comments Med Refill 07/15/2022 Reason Comments Hyperglycemia Reason Comments Med Refill Reason Comments Scheduling follow-up Reason Comments New Patient Coronary Artery Disease Aortic Valve dis ease and AVR Reason Onset Date Comments Appointment 11/05/2024 Transesophageal Echo 11/20/24 - need to move [facility]SON from 9:15 am to 2:30 pm so [facility]SON is after TTE. Reason Onset Date Comments Reminder Call 11/13/2024 [facility] instructions Reason Comments Radiology CT Specialty Diagnoses / Procedures Referred By Kristie parada Referred To Contact CT IMAGING Diagnoses Aortic valve disorder Procedures CTA CHEST (GATED) W IVCON CT ANGIOGRAPHY CHEST W/CONTRAST/NONCONTRAST Roscoe Arias MD [address] [place] [address] Phone: tel: fax: [facility] [place] [address] Referral ID Status Reason Start Date Expiration Date V isits Requested Visits Authorized [id number] Closed Auto-Generate d Referral 08/17/2024 09/16/2025 1 1 Reason Comments Dental Clearance - Open Heart Surgery Specialty Diagnoses / Procedures Referred By Kristie parada Referred To Contact Dentistry / DENTISTRY Diagnoses Type 1 diabetes mellitus without complication (HCC) Acquired hypothyroidism Pre-operative cardiovascular examination Aortic valve disorder Procedures CONSULT TO DENTISTRY OFFICE/OUTPATIENT NEW HIGH MDM 60 MINUTES Roscoe Arias MD [address] [place] [id number] Phone: tel: fax: Dentistry [address] [place] [phone] Phone: tel: fax: Referral ID Status Reason Start Date Expiration Date V isits Requested Visits Authorized [id number] Closed PCP Requested Referral 11/27/2024 11/27/2025 1 1 Specialty Diagnoses / Procedures Referred By Contac t Referred To Contact [facility] Diagnoses Type 1 diabetes mellitus without complication (HCC) Acquired hypothyroidism Pre-operative cardiovascular examination Aortic valve disorder Procedures LUNG DIFFUSION CAPACITY (DLCO) DIFFUSING CAPACITY Roscoe Arias MD [address] [place] [address] Phone: tel: fax: [facility] [address] [place] [phone] Referral ID Status Reason Start Date Expiration Date V isits Requested Visits Authorized [id number] Closed Auto-Generate d Referral 07/11/2024 07/10/2025 1 1 Reason Comments Consult Diabetes Insulin Dependent Diabetes Mellitus Specialty Diagnoses / Procedures Referred By Contact Referred To Contact [facility] Diagnoses Type 1 diabetes mellitus without complication (HCC) Acquired hypothyroidism Pre-operative cardiovascular examination Aortic valve disorder Procedures CONSULT TO ENDOCRINOLOGY OFFICE/OUTPATIENT NEW HIGH MDM 60 MINUTES Roscoe Arias MD [address] [place] [address] Phone: tel:[phone] fax:[phone] [facility] [address] [place] [address] Referral ID Status Reason Start Date Expiration Date V isits Requested Visits Authorized [id number] Closed PCP Requested Referral 11/27/2024 07/10/2025 1 1 Reason Comments Education Of Patient/family Reason Comments Orders Reason Comments Consult Reason Onset Date Comments Establish Care Anticoagulation 01/10/2025 Reason Comments Anticoagulation - Initial Consult Reason Comments Anticoagulation Telephone Fu Lab INR res ult Reason Comments Anticoagulation Reason Comments Results [facility] Reason Comments Follow Up Reason Comments Referral Information Neurology Reason Comments Vascular referral faxed to Vascular Reason Comments referral info given via mychart Reason Comments Appointment Referral Information Reason Comments Appointment appt Reason Comments Established Patient New to provider, spencer bateman follow up for coumadin. Reason Comments Referral Update Reason Comments Refill Request Reason Onset Date Comments Refill Request 03/06/2025 Reason Comments New Patient Consult Referral Robyn Taylor LUMBER HACKER.SENIOR TECHNICAL ARCHITECT Peripheral Vascular Disease (PVD) Reason Onset Date Comments Refill Request 03/06/2025 future appointments 03/06/2025 PCP 03/06/2025 Reason Comments INR orders Refill Request PCP change Reason Comments Acute Visit Reason Comments INR PCP Coumadin dosing Reason Comments Anticoagulation INR goal clarificati on Reason Onset Date Comments Other 03/15/2025 Reason Comments Follow-up Valvular disease Reason Comments Anticoagulation Telephone Fu INR Result Reason Onset Date Comments Refill Request 03/14/2025 Reason Comments mental health concerns Reason Onset Date Comments Refill Request 03/26/2025 Care Teams (unrecognized sec tion and content) Information Security Director Relationship Specialty Start Date End Date Giovanni Ellis CNP [address] [place] [address] PCP - General Nurse Practitioner 09/29/20 Noam Luevano MD [address] [place] [phone] Cardiology 11/19/20 Information Security Director Relationship Specialty Start Date End Date Kacie Marroquin APRN - SENIOR TECHNICAL ARCHITECT [address] [place] [address] PCP - General Nurse Practitioner 08/24/21 Information Security Director Relationship Specialty Start Date End Date Kacie Marroquin APRN - CNP [address] [place] [address] PCP - General Nurse Practitioner 08/24/21 Information Security Director Relationship Specialty Start Date End Date Luz Maria Perez [address] [place] [address], [address] [place] [address] Panel Assembler Cardiology 10/13/21 Luz Maria Perez [address] [place] [address] [address] [place] [address] Referring Cardiology 10/27/21 Information Security Director Relationship Specialty Start Date End Date Luz Maria Perez [address] [place] [address] Street, [address] [place] [address] Panel Assembler Cardiology 10/13/21 Luz Maria Perez Paul [address] [place] [address] Referring Cardiology 10/27/21 Information Security Director Relationship Specialty Start Date End Date Luz Maria Perez [address] [place] [address] Street, [address] [place] [address] Panel Assembler Cardiology 10/13/21 Luz Maria Perez [place] [address] [place] [address] Referring Cardiology 10/27/21 Information Security Director Relationship Specialty Start Date End Date Luz Maria Perez [address], [address] [place] [address] Panel Assembler Cardiology 10/13/21 Luz Maria Perez [place] [address] [place] [address] Referring Cardiology 10/27/21 Abhinav Garrett MD [address] [place] [address] Primary Staff Physician Cardiology 12/30/21 Information Security Director Relationship Specialty Start Date End Date Luz Maria Perez [address] [place] [address], [address] [place] [address] Panel Assembler Cardiology 10/13/21 Luz Maria Perez [place] [address] [place] [address] Referring Cardiology 10/27/21 Abhinav Garrett MD [address] [place] [address] Primary Staff Physician Cardiology 12/30/21 Information Security Director Relationship Specialty Start Date End Date Luz Maria Perez [address], [address] [place] [address] Panel Assembler Cardiology 10/13/21 [facility] Luz Maria Paul [address] [place] [address] Referring Cardiology 10/27/21 Abhinav Garrett MD [address] [place] [address] Primary Staff Physician Cardiology 12/30/21 Information Security Director Relationship Specialty Start Date End Date [facility] Luz Maria [address], [address] [place] [address] Panel Assembler Cardiology 10/13/21 [place] [address] [place] [address] Referring Cardiology 10/27/21 Abhinav Garrett MD [address] [place] [address] Primary Staff Physician Cardiology 12/30/21 Information Security Director Relationship Specialty Start Date End Date [facility] [address], [address] [place] [address] Panel Assembler Cardiology 10/13/21 [facility] Luz Maria [place] [address] [place] [address] Referring Cardiology 10/27/21 Abhinav Garrett MD [address] [place] [address] Primary Staff Physician Cardiology 12/30/21 Information Security Director Relationship Specialty Start Date End Date [address], [address] [place] [address] Panel Assembler Cardiology 10/13/21 [place] [address] [place] [address] Referring Cardiology 10/27/21 Abhinav Garrett MD [address] [place] [address] Primary Staff Physician Cardiology 12/30/21 Information Security Director Relationship Specialty Start Date End Date [address], [address] [place] [address] Panel Assembler Cardiology 10/13/21 [place] [address] [place] [address] Referring Cardiology 10/27/21 Abhinav Garrett MD [address] [place] [address] Primary Staff Physician Cardiology 12/30/21 Information Security Director Relationship Specialty Start Date End Date [address], [address] [place] [address] Panel Assembler Cardiology 10/13/21 [place] [address] [place] [address] Referring Cardiology 10/27/21 Abhinav Garrett MD [address] [place] [address] Primary Staff Physician Cardiology 12/30/21 Information Security Director Relationship Specialty Start Date End Date [address], [address] [place] [address] Panel Assembler Cardiology 10/13/21 [place] [address] [place] [address] Referring Cardiology 10/27/21 Abhinav Garrett MD [address] [place] [address] Primary Staff Physician Cardiology 12/30/21 Information Security Director Relationship Specialty Start Date End Date [address], [address] [place] [address] Panel Assembler Cardiology 10/13/21 [facility] [address] [place] [address] Referring Cardiology 10/27/21 Abhinav Garrett MD [facility] [place] [address] Primary Staff Physician Cardiology 12/30/21 Information Security Director Relationship Specialty Start Date End Date [facility] [place] [address], [address] [place] [address] Panel Assembler Cardiology 10/13/21 [facility] [address] [place] [address] Referring Cardiology 10/27/21 Abhinav Garrett MD [address] [place] [address] Primary Staff Physician Cardiology 12/30/21 Information Security Director Relationship Specialty Start Date End Date [facility] [address] [place] [address] Panel Assembler Cardiology 10/13/21 [facility] Luz Maria [place] [address] [place] [address] Referring Cardiology 10/27/21 Abhinav Garrett MD [address] [place] [address] Primary Staff Physician Cardiology 12/30/21 Information Security Director Relationship Specialty Start Date End Date [address], [address] [place] [address] Panel Assembler Cardiology 10/13/21 [facility] [address] [place] [address] Referring Cardiology 10/27/21 Abhinav Garrett MD [address] [place] [address] Primary Staff Physician Cardiology 12/30/21 Information Security Director Relationship Specialty Start Date End Date Luz Maria Perez [address], [address] [place] [address] Panel Assembler Cardiology 10/13/21 Luz Maria Perez [place] [address] [place] [address] Referring Cardiology 10/27/21 Abhinav Garrett MD [address] [place] [address] Primary Staff Physician Cardiology 12/30/21 Information Security Director Relationship Specialty Start Date End Date Luz Maria Perez [address], [address] [place] [address] Panel Assembler Cardiology 10/13/21 Luz Maria Perez [place] [address] [place] [address] Referring Cardiology 10/27/21 Abhinav Garrett MD [address] [place] [address] Primary Staff Physician Cardiology 12/30/21 Information Security Director Relationship Specialty Start Date End Date Luz Maria Perez [address], [address] [place] [address] Panel Assembler Cardiology 10/13/21 JoseLuz Maria [place] [address] [place] [address] Referring Cardiology 10/27/21 Abhinav Garrett MD [address] [place] [address] Primary Staff Physician Cardiology 12/30/21 Information Security Director Relationship Specialty Start Date End Date Luz Maria Perez [address], [address] [place] [address] Panel Assembler Cardiology 10/13/21 [place] [address] [place] [address] Referring Cardiology 10/27/21 [place] [address] [place] [address] Primary Staff Physician Cardiology 12/30/21 Information Security Director Relationship Specialty Start Date End Date Luz Maria Perez [address] [facility] [address], [address] [place] [address] Panel Assembler Cardiology 10/13/21 Luz Maria Perez Carlin [address] [place] [address] Referring Cardiology 10/27/21 Abhinav Garrett MD [address] [place] [address] Primary Staff Physician Cardiology 12/30/21 Information Security Director Relationship Specialty Start Date End Date Luz Maria Perez [address] [place] [address] Street, [address] [place] [address] Panel Assembler Cardiology 10/13/21 Chris Luz Maria Gillis [address] [place] [address] Referring Cardiology 10/27/21 Abhinav Garrett MD [address] [place] [address] Primary Staff Physician Cardiology 12/30/21 Information Security Director Relationship Specialty Start Date End Date Josegolden Luz Maria Carlin Panel Assembler Cardiology 10/13/21 Chris Luz Maria Carlin [address] [place] [address] Referring Cardiology 10/27/21 Abhinav Garrett MD [address] [place] [address] Primary Staff Physician Cardiology 12/30/21 Information Security Director Relationship Specialty Start Date End Date JosegoldenLuz Maria Carlin Panel Assembler Cardiology 10/13/21 JosegoldenLuz Maria Carlin [address] [place] [address] Referring Cardiology 10/27/21 Abhinav Garrett MD [address] [place] [address] Primary Staff Physician Cardiology 12/30/21 Information Security Director Relationship Specialty Start Date End Date JosegoldenLuz Maria Carlin Panel Assembler Cardiology 10/13/21 Chris Luz Maria Carlin [address] [place] [address] Referring Cardiology 10/27/21 Abhinav Garrett MD [address] [place] [address] Primary Staff Physician Cardiology 12/30/21 Information Security Director Relationship Specialty Start Date End Date Josegolden Luz Maria Carlin Panel Assembler Cardiology 10/13/21 Josegolden Luz Maria Carlin [address] [place] [address] Referring Cardiology 10/27/21 Abhinav Garrett MD [address] [place] [address] Primary Staff Physician Cardiology 12/30/21 Information Security Director Relationship Specialty Start Date End Date JoseLuz Maria franks Panel Assembler Cardiology 10/13/21 Luz Maria Perez [address] [place] [address] Referring Cardiology 10/27/21 Abhinav Garrett MD [address] [place] [address] Primary Staff Physician Cardiology 12/30/21 Information Security Director Relationship Specialty Start Date End Date JosegoldenLuz Maria Carlin Panel Assembler Cardiology 10/13/21 Luz Maria Perez Carlin [address] [place] [address] Referring Cardiology 10/27/21 Abhinav Garrett MD [address] [place] [address] Primary Staff Physician Cardiology 12/30/21 Information Security Director Relationship Specialty Start Date End Date Luz Maria Perez Panel Assembler Cardiology 10/13/21 Chris Luz Maria Carlin [address] [place] [address] Referring Cardiology 10/27/21 Abhinav Garrett MD [address] [place] [address] Primary Staff Physician Cardiology 12/30/21 Information Security Director Relationship Specialty Start Date End Date Luz Maria Perez Panel Assembler Cardiology 10/13/21 Josegolden Luz Maria Carlin [address] [place] [address] Referring Cardiology 10/27/21 Abhinav Garrett MD [address] [place] [address] Primary Staff Physician Cardiology 12/30/21 Information Security Director Relationship Specialty Start Date End Date Luz Maria Perez Panel Assembler Cardiology 10/13/21 Luz Maria Perez [address] [place] [address] Referring Cardiology 10/27/21 Abhinav Garrett MD [address] [place] [address] Primary Staff Physician Cardiology 12/30/21 Information Security Director Relationship Specialty Start Date End Date Jesse Ward DO [address] [address] PCP - General Family Medicine 07/15/22 Luz Maria Perez Panel Assembler Cardiology 10/13/21 Luz Maria Perez [address] [place] [address] Referring Cardiology 10/27/21 Abhinav Garrett MD [address] [place] [address] Primary Staff Physician Cardiology 12/30/21 Information Security Director Relationship Specialty Start Date End Date Jesse Ward DO [address] [place] [address] PCP - General Family Medicine 07/15/22 Luz Maria Perez Panel Assembler Cardiology 10/13/21 Luz Maria Perez [address] [place] [address] [place] [address] Referring Cardiology 10/27/21 Abhinav Garrett MD [address] [place] [address] Primary Staff Physician Cardiology 12/30/21 Information Security Director Relationship Specialty Start Date End Date Jesse Ward DO [address] [address] PCP - General Family Medicine 07/15/22 Luz Maria Perez Panel Assembler Cardiology 10/13/21 Luz Maria Perez [address] [place] [address] Referring Cardiology 10/27/21 Abhinav Garrett MD [address] [place] [address] Primary Staff Physician Cardiology 12/30/21 Information Security Director Relationship Specialty Start Date End Date Luz Maria Perez Panel Assembler Cardiology 10/13/21 Luz Maria Perez [address] [place] [address] Referring Cardiology 10/27/21 Abhinav Garrett MD [address] [place] [address] Primary Staff Physician Cardiology 12/30/21 Information Security Director Relationship Specialty Start Date End Date Luz Maria Perez Panel Assembler Cardiology 10/13/21 Luz Maria Perez [address] [place] [address] Referring Cardiology 10/27/21 Abhinav Garrett MD [address] [place] [address] Primary Staff Physician Cardiology 12/30/21 Information Security Director Relationship Specialty Start Date End Date Luz Maria Perez Panel Assembler Cardiology 10/13/21 Luz Maria Perez [address] [place] [address] Referring Cardiology 10/27/21 Abhinav Garrett MD [address] [place] [address] Primary Staff Physician Cardiology 12/30/21 Information Security Director Relationship Specialty Start Date End Date Luz Maria Perez Panel Assembler Cardiology 10/13/21 Luz Maria Perez [address] [place] [address] Referring Cardiology 10/27/21 Abhinav Garrett MD [address] [place] [address] Primary Staff Physician Cardiology 12/30/21 Information Security Director Relationship Specialty Start Date End Date Luz Maria Perez Panel Assembler Cardiology 10/13/21 Luz Maria Perez [address] [place] [address] Referring Cardiology 10/27/21 Abhinav Garrett MD [address] [place] [address] Primary Staff Physician Cardiology 12/30/21 Information Security Director Relationship Specialty Start Date End Date Daria Stephenson MD [address] [facility] 207 [place] [address] PCP - General Family Medicine 04/28/22 Information Security Director Relationship Specialty Start Date End Date Luz Maria Perez Panel Assembler Cardiology 10/13/21 Luz Maria Perez [address] [place] [address] Referring Cardiology 10/27/21 Abhinav Garrett MD [address] [place] [address] Primary Staff Physician Cardiology 12/30/21 Information Security Director Relationship Specialty Start Date End Date Sruthi Ambrosio, LUMBER HACKER.SENIOR TECHNICAL ARCHITECT [address] [place] [address] PCP - General Primary Care 12/02/22 Luz Maria Perez Panel Assembler Cardiology 10/13/21 Luz Maria Perez [address] [place] [address] Referring Cardiology 10/27/21 Abhinav Garrett MD [address] [place] [address] Primary Staff Physician Cardiology 12/30/21 Information Security Director Relationship Specialty Start Date End Date Sruthi Ambrosio, LUMBER HACKER.SENIOR TECHNICAL ARCHITECT [address] [place] [address] PCP - General Primary Care 12/02/22 Luz Maria Perez Panel Assembler Cardiology 10/13/21 Luz Maria Perez [address] [place] [address] Referring Cardiology 10/27/21 Abhinav Garrett MD [address] [place] [address] Primary Staff Physician Cardiology 12/30/21 Information Security Director Relationship Specialty Start Date End Date Sruthi Ambrosio, LUMBER HACKER.SENIOR TECHNICAL ARCHITECT [address] [place] [address] PCP - General Primary Care 12/02/22 Luz Maria Perez Panel Assembler Cardiology 10/13/21 Luz Maria Perez [address] [place] [address] Referring Cardiology 10/27/21 Abhinav Garrett MD [address] [place] [address] Primary Staff Physician Cardiology 12/30/21 Information Security Director Relationship Specialty Start Date End Date Sruthi Ambrosio, LUMBER HACKER.SENIOR TECHNICAL ARCHITECT [address] [place] [address] PCP - General Primary Care 12/02/22 Luz Maria Perez Panel Assembler Cardiology 10/13/21 Luz Maria Perez Carlin [address] [place] [address] Referring Cardiology 10/27/21 Abhinav Garrett MD [address] [place] [address] Primary Staff Physician Cardiology 12/30/21 Information Security Director Relationship Specialty Start Date End Date Sruthi Ambrosio, LUMBER HACKER.SENIOR TECHNICAL ARCHITECT [address] [place] [address] PCP - General Primary Care 12/02/22 Luz Maria Perez Panel Assembler Cardiology 10/13/21 Luz Maria Perez [address] [address] [place] [address] Referring Cardiology 10/27/21 Abhinav Garrett MD [address] [place] [address] Primary Staff Physician Cardiology 12/30/21 Information Security Director Relationship Specialty Start Date End Date Sruthi Ambrosio, LUMBER HACKER.SENIOR TECHNICAL ARCHITECT [address] [place] [address] PCP - General Primary Care 12/02/22 Luz Maria Perez Panel Assembler Cardiology 10/13/21 Luz Maria Perez [address] [place] [address] Referring Cardiology 10/27/21 Abhinav Garrett MD [address] [place] [address] Primary Staff Physician Cardiology 12/30/21 Information Security Director Relationship Specialty Start Date End Date Sruthi Ambrosio, LUMBER HACKER.SENIOR TECHNICAL ARCHITECT [address] [place] [address] PCP - General Primary Care 12/02/22 Luz Maria Perez Panel Assembler Cardiology 10/13/21 Luz Maria Perez [address] [place] [address] Referring Cardiology 10/27/21 Abhinav Garrtet MD [address] [place] [address] Primary Staff Physician Cardiology 12/30/21 Information Security Director Relationship Specialty Start Date End Date Sruthi Ambrosio, LUMBER HACKER.SENIOR TECHNICAL ARCHITECT [address] [place] [address] PCP - General Primary Care 12/02/22 Luz Maria Perez Panel Assembler Cardiology 10/13/21 Luz Maria Perez [address] [place] [address] Referring Cardiology 10/27/21 Abhinav Garrett MD [address] [place] [address] Primary Staff Physician Cardiology 12/30/21 Information Security Director Relationship Specialty Start Date End Date Sruthi Ambrosio, LUMBER HACKER.SENIOR TECHNICAL ARCHITECT [address] [place] [address] PCP - General Primary Care 12/02/22 Luz Maria Perez Panel Assembler Cardiology 10/13/21 Luz Maria Perez [address] [place] [address] Referring Cardiology 10/27/21 Abhinav Garrett MD [address] [place] [address] Primary Staff Physician Cardiology 12/30/21 Information Security Director Relationship Specialty Start Date End Date Sruthi Ambrosio, LUMBER HACKER.SENIOR TECHNICAL ARCHITECT [address] [place] [address] PCP - General Primary Care 12/02/22 Luz Maria Perez Panel Assembler Cardiology 10/13/21 Luz Maria Perez [address] [place] [address] Referring Cardiology 10/27/21 Abhinav Garrett MD [address] [place] [address] Primary Staff Physician Cardiology 12/30/21 Information Security Director Relationship Specialty Start Date End Date Sruthi Ambrosio, LUMBER HACKER.SENIOR TECHNICAL ARCHITECT [address] [place] [address] PCP - General Primary Care 12/02/22 Luz Maria Perez Panel Assembler Cardiology 10/13/21 Luz Maria Perez [address] [place] [address] Referring Cardiology 10/27/21 Abhinav Garrett MD [address] [place] [address] Primary Staff Physician Cardiology 12/30/21 Information Security Director Relationship Specialty Start Date End Date Sruthi Ambrosio, LUMBER HACKER.SENIOR TECHNICAL ARCHITECT [address] [place] [address] PCP - General Primary Care 12/02/22 Luz Maria Perez Panel Assembler Cardiology 10/13/21 Luz Maria Perez [address] [place] [address] Referring Cardiology 10/27/21 Abhinav Garrett MD [address] [place] [address] Primary Staff Physician Cardiology 12/30/21 Information Security Director Relationship Specialty Start Date End Date rSuthi Ambrosio, LUMBER HACKER.SENIOR TECHNICAL ARCHITECT [address] [place] [address] PCP - General Primary Care 12/02/22 Luz Maria Perez Panel Assembler Cardiology 10/13/21 Luz Maria Perez [address] [place] [address] Referring Cardiology 10/27/21 Abhinav Garrett MD [address] [place] [address] Primary Staff Physician Cardiology 12/30/21 Information Security Director Relationship Specialty Start Date End Date Sruthi Ambrosio, LUMBER HACKER.SENIOR TECHNICAL ARCHITECT [address] [place] [address] PCP - General Primary Care 12/02/22 Lzu Maria Perez Panel Assembler Cardiology 10/13/21 Luz Maria Perez [address] [place] [address] Referring Cardiology 10/27/21 Abhinav Garrett MD [address] [place] [address] Primary Staff Physician Cardiology 12/30/21 Information Security Director Relationship Specialty Start Date End Date Sruthi Ambrosio, LUMBER HACKER.SENIOR TECHNICAL ARCHITECT [address] [place] [address] PCP - General Primary Care 12/02/22 Luz Maria Perez Panel Assembler Cardiology 10/13/21 Luz Maria Perez [address] [place] [address] Referring Cardiology 10/27/21 Abhinav Garrett MD [address] [place] [address] Primary Staff Physician Cardiology 12/30/21 Information Security Director Relationship Specialty Start Date End Date Sruthi Ambrosio APRN.SENIOR TECHNICAL ARCHITECT [address] [place] [address] PCP - General Primary Care 12/02/22 Luz Maria Perez Panel Assembler Cardiology 10/13/21 Luz Maria Perez [address] [place] [address] Referring Cardiology 10/27/21 Abhinav Garrett MD [address] [place] [address] Primary Staff Physician Cardiology 12/30/21 Information Security Director Relationship Specialty Start Date End Date Sruthi Ambrosio, LUMBER HACKER.SENIOR TECHNICAL ARCHITECT [address] [place] [address] PCP - General Primary Care 12/02/22 Luz Maria Perez Panel Assembler Cardiology 10/13/21 Luz Maria Perez [address] [place] [address] Referring Cardiology 10/27/21 Abhinav Garrett MD [address] [place] [address] Primary Staff Physician Cardiology 12/30/21 Information Security Director Relationship Specialty Start Date End Date Sruthi Ambrosio, LUMBER HACKER.SENIOR TECHNICAL ARCHITECT [address] [place] [address] PCP - General Primary Care 12/02/22 Luz Maria Perez Panel Assembler Cardiology 10/13/21 Luz Maria Perez [address] [place] [address] Referring Cardiology 10/27/21 Abhinav Garrett MD [address] [place] [address] Primary Staff Physician Cardiology 12/30/21 Team Status: Active Member Role Status Dates SRUTHI AMBROSIO Primary Care Provider Active Team Status: Inactive Member Role Status Dates Dr. Melquiades Patel MD Emergency Provider Active DAILY SWENSON Primary Care Provider Active Team Status: Inactive Member Role Status Dates Dr. Melquiades Patel MD Attending Provider, Emergency Provider Active DAILY SWENSON Primary Care Provider Active Team Status: Inactive Member Role Status Dates DAILY SWENSON Primary Care Provider Active Dr. Eliza Coker DO Attending Provider, Referring Pr ovider Active Information Security Director Relationship Specialty Start Date End Date Sruthi Ambrosio APRN - SENIOR TECHNICAL ARCHITECT [address] [facility] [address] [place] [address] PCP - General Nurse Practitioner 05/06/23 Information Security Director Relationship Specialty Start Date End Date Sruthi Ambrosio APRN - SENIOR TECHNICAL ARCHITECT [address] [facility] [address] [place] [address] PCP - General Nurse Practitioner 05/06/23 Information Security Director Relationship Specialty Start Date End Date Sruthi Ambrosio APRN.SENIOR TECHNICAL ARCHITECT [address] [place] [address] PCP - General Primary Care 12/02/22 Luz Maria Perez MD Panel Assembler Cardiology 10/13/21 Luz Maria Perez MD [address] [place] [address] Referring Cardiology 10/27/21 Abhinav Garrett MD [address] [place] [address] Primary Staff Physician Cardiology 12/30/21 Information Security Director Relationship Specialty Start Date End Date Sruthi Ambrosio, LUMBER HACKER.SENIOR TECHNICAL ARCHITECT [address] [place] [address] PCP - General Primary Care 12/02/22 Luz Maria Perez MD Panel Assembler Cardiology 10/13/21 Luz Maria Perez MD [address] [place] [address] Referring Cardiology 10/27/21 Abhinav Garrett MD [address] [place] [address] Primary Staff Physician Cardiology 12/30/21 Information Security Director Relationship Specialty Start Date End Date Sruthi Ambrosio, LUMBER HACKER.SENIOR TECHNICAL ARCHITECT [address] [place] [address] PCP - General Primary Care 12/02/22 Luz Maria Perez MD Panel Assembler Cardiology 10/13/21 Luz Maria Perez MD [address] [place] [address] Referring Cardiology 10/27/21 Abhinav Garrett MD [address] [place] [address] Primary Staff Physician Cardiology 12/30/21 Information Security Director Relationship Specialty Start Date End Date Sruthi Ambrosio, LUMBER HACKER.SENIOR TECHNICAL ARCHITECT [address] [place] [address] PCP - General Primary Care 12/02/22 Luz Maria Perez MD Panel Assembler Cardiology 10/13/21 Luz Maria Perez MD [address] [place] [address] Referring Cardiology 10/27/21 Abhinav Garrett MD [address] [place] [address] Primary Staff Physician Cardiology 12/30/21 Information Security Director Relationship Specialty Start Date End Date Robyn Taylor, LUMBER HACKER.SENIOR TECHNICAL ARCHITECT [address] [place] [address] PCP - General Primary Care 09/05/23 Luz Maria Perez MD Panel Assembler Cardiology 10/13/21 Luz Maria Perez MD [address] [place] [address] Referring Cardiology 10/27/21 Abhinav Garrett MD [address] [place] [address] Primary Staff Physician Cardiology 12/30/21 Information Security Director Relationship Specialty Start Date End Date Sruthi Ambrosio, LUMBER HACKER.SENIOR TECHNICAL ARCHITECT [address] [place] [address] PCP - General Primary Care 11/18/23 Luz Maria Perez MD Panel Assembler Cardiology 10/13/21 Luz Maria Perez MD [address] [place] [address] Referring Cardiology 10/27/21 Abhinav Garrett MD [address] [place] [address] Primary Staff Physician Cardiology 12/30/21 Information Security Director Relationship Specialty Start Date End Date Sruthi Ambrosio, LUMBER HACKER.SENIOR TECHNICAL ARCHITECT [facility] [place] [address] PCP - General Primary Care 11/18/23 Luz Maria Perez MD Panel Assembler Cardiology 10/13/21 Luz Maria Perez MD [address] [place] [address] Referring Cardiology 10/27/21 Abhinav Garrett MD [address] [place] [address] Primary Staff Physician Cardiology 12/30/21 Information Security Director Relationship Specialty Start Date End Date Sruthi Ambrosio, LUMBER HACKER.SENIOR TECHNICAL ARCHITECT [facility] [place] [address] PCP - General Primary Care 11/18/23 Luz Maria Perez MD Panel Assembler Cardiology 10/13/21 Luz Maria Perez MD [address] [place] [address] Referring Cardiology 10/27/21 Abhinav Garrett MD [address] [place] [address] Primary Staff Physician Cardiology 12/30/21 Information Security Director Relationship Specialty Start Date End Date Sruthi Ambrosio, LUMBER HACKER.SENIOR TECHNICAL ARCHITECT [address] [place] [address] PCP - General Primary Care 11/18/23 Luz Maria Perez MD Panel Assembler Cardiology 10/13/21 Luz Maria Perez MD [address] [address] Referring Cardiology 10/27/21 Abhinav Garrett MD [address] [place] [address] Primary Staff Physician Cardiology 12/30/21 Information Security Director Relationship Specialty Start Date End Date Sruthi Ambrosio, LUMBER HACKER.SENIOR TECHNICAL ARCHITECT [address] [place] [address] PCP - General Primary Care 11/18/23 Luz Maria Perez MD Panel Assembler Cardiology 10/13/21 Luz Maria Perez MD [address] [place] [address] Referring Cardiology 10/27/21 Abhinav Garrett MD [address] [place] [address] Primary Staff Physician Cardiology 12/30/21 Information Security Director Relationship Specialty Start Date End Date Sruthi Ambrosio, LUMBER HACKER.SENIOR TECHNICAL ARCHITECT [address] [place] [address] PCP - General Primary Care 11/18/23 Luz Maria Perez MD Panel Assembler Cardiology 10/13/21 Luz Maria Perez MD [address] [place] [address] Referring Cardiology 10/27/21 Abhinav Garrett MD [address] [place] [address] Primary Staff Physician Cardiology 12/30/21 Information Security Director Relationship Specialty Start Date End Date Sruthi Ambrosio, LUMBER HACKER.SENIOR TECHNICAL ARCHITECT [address] [place] [address] PCP - General Primary Care 11/18/23 Luz Maria Perez MD Panel Assembler Cardiology 10/13/21 Luz Maria Perez MD [address] [place] [address] Referring Cardiology 10/27/21 Abhinav Garrett MD [address] [place] [address] Primary Staff Physician Cardiology 12/30/21 Information Security Director Relationship Specialty Start Date End Date Sruthi Ambrosio LUMBER HACKER.SENIOR TECHNICAL ARCHITECT [address] [place] [address] PCP - General Primary Care 11/18/23 Luz Maria Perez MD Panel Assembler Cardiology 10/13/21 Luz Maria Perez MD [address] [place] [address] Referring Cardiology 10/27/21 Abhinav Garrett MD [address] [place] [address] Primary Staff Physician Cardiology 12/30/21 Information Security Director Relationship Specialty Start Date End Date Sruthi Ambrosio, LUMBER HACKER.SENIOR TECHNICAL ARCHITECT [address] [place] [address] PCP - General Primary Care 11/18/23 Luz Maria Perez MD Panel Assembler Cardiology 10/13/21 Luz Maria Perez MD [address] [place] [address] Referring Cardiology 10/27/21 Abhinav Garrett MD [address] [place] [address] Primary Staff Physician Cardiology 12/30/21 Information Security Director Relationship Specialty Start Date End Date Sruthi Ambrosio, LUMBER HACKER.SENIOR TECHNICAL ARCHITECT [address] [place] [address] PCP - General Primary Care 11/18/23 Luz Maria Perez MD Panel Assembler Cardiology 10/13/21 Luz Maria Perez MD [address] [address] Referring Cardiology 10/27/21 Abhinav Garrett MD [address] [place] [address] Primary Staff Physician Cardiology 12/30/21 Information Security Director Relationship Specialty Start Date End Date Sruthi Ambrosio, LUMBER HACKER.SENIOR TECHNICAL ARCHITECT [address] [place] [address] PCP - General Primary Care 11/18/23 Luz Maria Perez MD Panel Assembler Cardiology 10/13/21 Luz Maria Perez MD [address] [address] Referring Cardiology 10/27/21 Abhinav Garrett MD [address] [place] [address] Primary Staff Physician Cardiology 12/30/21 Information Security Director Relationship Specialty Start Date End Date Sruthi Ambrosio, LUMBER HACKER.SENIOR TECHNICAL ARCHITECT [address] [place] [address] PCP - General Primary Care 11/18/23 Luz Maria Perez MD Panel Assembler Cardiology 10/13/21 Luz Maria Perez MD [address] [place] [address] Referring Cardiology 10/27/21 Abhinav Garrett MD [address] [place] [address] Primary Staff Physician Cardiology 12/30/21 Information Security Director Relationship Specialty Start Date End Date Roscoe Umanzor MD [address] [place] [address] PCP - General Internal Medicine 05/14/24 Roscoe Umanzor MD [address] [place] [address] Referring Physician Internal Medicine 05/14/24 Information Security Director Relationship Specialty Start Date End Date Sruthi Ambrosio, LUMBER HACKER.SENIOR TECHNICAL ARCHITECT [address] [place] [address] PCP - General Primary Care 11/18/23 Luz Maria Perez MD Panel Assembler Cardiology 10/13/21 Luz Maria Perez MD [address] [place] [address] Referring Cardiology 10/27/21 Abhinav Garrett MD [address] [place] [address] Primary Staff Physician Cardiology 12/30/21 Information Security Director Relationship Specialty Start Date End Date Daria Stephenson MD [address] [facility] [address] [place], [place] [address] PCP - General Family Medicine 04/28/22 Information Security Director Relationship Specialty Start Date End Date Daria Stephenson MD [address] [place] [address] PCP - General Family Medicine 04/28/22 Information Security Director Relationship Specialty Start Date End Date Daria Stephenson MD [address] [place] [address] PCP - General Family Medicine 04/28/22 Information Security Director Relationship Specialty Start Date End Date Daria Stephenson MD [address] [place] [address] PCP - General Family Medicine 04/28/22 Information Security Director Relationship Specialty Start Date End Date Daria Stephenson MD [address] [place] [address] PCP - General Family Medicine 04/28/22 Information Security Director Relationship Specialty Start Date End Date Roscoe Umanzor MD [address] [place], [place] [address] PCP - General Internal Medicine 05/14/24 Roscoe Umanzor MD [address] [place] [address] Referring Physician Internal Medicine 05/14/24 Information Security Director Relationship Specialty Start Date End Date Sruthi Ambrosio, LUMBER HACKER.SENIOR TECHNICAL ARCHITECT [facility] [place] [address] PCP - General Primary Care 11/18/23 Luz Maria Perez MD Panel Assembler Cardiology 10/13/21 Luz Maria Perez MD [address] [place] [address] Referring Cardiology 10/27/21 Abhinav Garrett MD [address] [place] [address] Primary Staff Physician Cardiology 12/30/21 Information Security Director Relationship Specialty Start Date End Date Sruthi Ambrosio, LUMBER HACKER.SENIOR TECHNICAL ARCHITECT [address] [place] [address] PCP - General Primary Care 11/18/23 Luz Maria Perez MD Panel Assembler Cardiology 10/13/21 Luz Maria Perez MD [address] [address] [place] [address] Referring Cardiology 10/27/21 Abhinav Garrett MD [address] [place] [address] Primary Staff Physician Cardiology 12/30/21 Information Security Director Relationship Specialty Start Date End Date Sruthi Ambrosio, LUMBER HACKER.SENIOR TECHNICAL ARCHITECT [address] [place] [address] PCP - General Primary Care 11/18/23 Luz Maria Perez MD Panel Assembler Cardiology 10/13/21 Luz Maria Preez MD [address] [place] [address] Referring Cardiology 10/27/21 Abhinav Garrett MD [address] [place] [address] Primary Staff Physician Cardiology 12/30/21 Information Security Director Relationship Specialty Start Date End Date Roscoe Umanzor MD [address] [place] [address] PCP - General Internal Medicine 05/14/24 [place] [address] [place] [address] Referring Physician Internal Medicine 05/14/24 Information Security Director Relationship Specialty Start Date End Date Sruthi Ambrosio, LUMBER HACKER.SENIOR TECHNICAL ARCHITECT [address] [place] [address] PCP - General Primary Care 11/18/23 Luz Maria Perez MD Panel Assembler Cardiology 10/13/21 Luz Maria Perez MD [address] [place] [address] Referring Cardiology 10/27/21 Abhinav Garrett MD [address] [place] [address] Primary Staff Physician Cardiology 12/30/21 Information Security Director Relationship Specialty Start Date End Date Sruthi Ambrosio, LUMBER HACKER.SENIOR TECHNICAL ARCHITECT [address] [place] [address] PCP - General Primary Care 11/18/23 Luz Maria Perez MD Panel Assembler Cardiology 10/13/21 Luz Maria Perez MD [address] [place] [address] Referring Cardiology 10/27/21 Abhinav Garrett MD [address] [place] [address] Primary Staff Physician Cardiology 12/30/21 Information Security Director Relationship Specialty Start Date End Date Sruthi Ambrosio, LUMBER HACKER.SENIOR TECHNICAL ARCHITECT [address] [place] [address] PCP - General Primary Care 11/18/23 Luz Maria Perez MD Panel Assembler Cardiology 10/13/21 Luz Maria Perez MD [address] [place] [address] Referring Cardiology 10/27/21 Abhinav Garrett MD [address] [place] [address] Primary Staff Physician Cardiology 12/30/21 Information Security Director Relationship Specialty Start Date End Date Sruthi Ambrosio, LUMBER HACKER.SENIOR TECHNICAL ARCHITECT [facility] [place] [address] PCP - General Primary Care 11/18/23 Luz Maria Perez MD Panel Assembler Cardiology 10/13/21 Luz Maria Perez MD [address] [place] [address] Referring Cardiology 10/27/21 Abhinav Garrett MD [address] [place] [address] Primary Staff Physician Cardiology 12/30/21 Information Security Director Relationship Specialty Start Date End Date Sruthi Ambrosio, LUMBER HACKER.SENIOR TECHNICAL ARCHITECT [address] [place] [address] PCP - General Primary Care 11/18/23 Luz Maria Perez MD [address] [place] [address] Referring Cardiology 10/27/21 Abhinav Garrett MD [address] [place] [address] Primary Staff Physician Cardiology 12/30/21 Luz Maria Perez MD [address] [address] Panel Assembler Internal Medicine 11/22/24 Erin Morris MD [address] [place] [address] Panel Assembler Cardiology 11/22/24 Information Security Director Relationship Specialty Start Date End Date Sruthi Ambrosio, LUMBER HACKER.SENIOR TECHNICAL ARCHITECT [address] [place] [address] PCP - General Primary Care 11/18/23 Luz Maria Perez MD [address] [address] Referring Cardiology 10/27/21 Abhinav Garrett MD [address] [place] [address] Primary Staff Physician Cardiology 12/30/21 Luz Maria Perez MD [address] [place] [address] Panel Assembler Internal Medicine 11/22/24 Erin Morris MD [address] [place] [address] Panel Assembler Cardiology 11/22/24 Roscoe Arias MD [address] [place] [address] Surgeon Cardiac Surg 11/23/24 Information Security Director Relationship Specialty Start Date End Date Sruthi Ambrosio, LUMBER HACKER.[facility] [address] [place] [address] PCP - General Primary Care 11/18/23 Luz Maria Perez MD [address] [facility] 206 [place] [address] Referring Cardiology 10/27/21 Abhinav Garrett MD [address] [place] [address] Primary Staff Physician Cardiology 12/30/21 Luz Maria Perez MD [address] [place] [address] Panel Assembler Internal Medicine 11/22/24 Erin Morris MD [address] [place] [address] Panel Assembler Cardiology 11/22/24 Roscoe Arias MD [address] [place] [address] Surgeon Cardiac Surg 11/23/24 Information Security Director Relationship Specialty Start Date End Date Sruthi Ambrosio, LUMBER HACKER.SENIOR TECHNICAL ARCHITECT [address] [place] [address] PCP - General Primary Care 11/18/23 Luz Maria Perez MD [address] [address] Referring Cardiology 10/27/21 Abhinav Garrett MD [address] [place] [address] Primary Staff Physician Cardiology 12/30/21 Luz Maria Perez MD [address] [address] Panel Assembler Internal Medicine 11/22/24 Erin Morris MD [address] [place] [address] Panel Assembler Cardiology 11/22/24 Roscoe Arias MD [address] [place] [address] Surgeon Cardiac Surg 11/23/24 Team Status: Active Member Role Status Dates ROSCOE UMANZOR Primary Care Provider Active Team Status: Inactive Member Role Status Dates ERNA AMBRIZ Primary Care Provider Active Star t: December 12, 2024 End: December 12, 2024 Dr. Freddy Mujica MD Attending Provider Active Start: December 12, 2024 End: December 12, 2024 Dr. Freddy Mujica MD Referring Provider Active Start: December 12, 2024 End: December 12, 2024 Information Security Director Relationship Specialty Start Date End Date Sruthi Ambrosio, LUMBER HACKER.SENIOR TECHNICAL ARCHITECT [address] [place] [address] PCP - General Primary Care 11/18/23 Luz Maria Perez MD [address] [place] [address] Referring Cardiology 10/27/21 Abhinav Garrett MD [address] [place] [address] Primary Staff Physician Cardiology 12/30/21 Luz Maria Perez MD [address] [place] [address] Panel Assembler Internal Medicine 11/22/24 Erin Morris MD [address] [place] [address] Panel Assembler Cardiology 11/22/24 Roscoe Arias MD [address] [facility] [place] [address] Surgeon Cardiac Surg 11/23/24 Information Security Director Relationship Specialty Start Date End Date Sruthi Ambrosio, LUMBER HACKER.SENIOR TECHNICAL ARCHITECT [address] [place] [address] PCP - General Primary Care 11/18/23 Luz Maria Perez MD [address] [place] [address] Referring Cardiology 10/27/21 Abhinav Garrett MD [address] [place] [address] Primary Staff Physician Cardiology 12/30/21 Luz Maria Perez MD [address] [place] [address] Panel Assembler Internal Medicine 11/22/24 Erin Morris MD [address] [place] [address] Panel Assembler Cardiology 11/22/24 Roscoe Arias MD [address] [facility] [place] [address] Surgeon Cardiac Surg 11/23/24 Information Security Director Relationship Specialty Start Date End Date Roscoe Umanzor MD, PhD [address] [facility] [place] [address] PCP - General Internal Medicine 12/20/24 Luz Maria Perez MD [address] [address] Referring Cardiology 10/27/21 Abhinav Garrett MD [address] [place] [address] Primary Staff Physician Cardiology 12/30/21 Luz Maria Perez MD [address] [address] Panel Assembler Internal Medicine 11/22/24 Erin Morris MD [address] [place] [address] Panel Assembler Cardiology 11/22/24 Roscoe Arias MD [address] [place] [address] Surgeon Cardiac Surg 11/23/24 Information Security Director Relationship Specialty Start Date End Date Roscoe Umanzor MD, PhD [address] [place] [address] PCP - General Internal Medicine 12/20/24 Luz Maria Perez MD [address] [place] [address] Referring Cardiology 10/27/21 Abhinav Garrett MD [address] [place] [address] Primary Staff Physician Cardiology 12/30/21 Luz Maria Perez MD [address] [place] [address] Panel Assembler Internal Medicine 11/22/24 Erin Morris MD [address] [place] [address] Panel Assembler Cardiology 11/22/24 Roscoe Arias MD [address] [place] [address] Surgeon Cardiac Surg 11/23/24 Information Security Director Relationship Specialty Start Date End Date Roscoe Umanzor MD, PhD [address] [place] [address] PCP - General Internal Medicine 12/20/24 Luz Maria Perez MD [address] [place] [address] Referring Cardiology 10/27/21 Abhinav Garrett MD [address] [place] [address] Primary Staff Physician Cardiology 12/30/21 Luz Maria Perez MD [address] [place] [address] Panel Assembler Internal Medicine 11/22/24 Erin Morris MD [address] [place] [address] Panel Assembler Cardiology 11/22/24 Roscoe Arias MD [address] [place] [address] Surgeon Cardiac Surg 11/23/24 Information Security Director Relationship Specialty Start Date End Date Roscoe Umanzor MD, PhD [address] [place], [place] [address] PCP - General Internal Medicine 12/20/24 Luz Maria Perez MD [address] [address] Referring Cardiology 10/27/21 Abhinav Garrett MD [address] [place] [address] Primary Staff Physician Cardiology 12/30/21 Luz Maria Perez MD [address] [address] Panel Assembler Internal Medicine 11/22/24 Erin Morris MD [address] [place] [address] Panel Assembler Cardiology 11/22/24 Roscoe Arias MD [address] [facility] [address] Surgeon Cardiac Surg 11/23/24 Information Security Director Relationship Specialty Start Date End Date Roscoe Umanzor MD, PhD [address] [place] [address] PCP - General Internal Medicine 12/20/24 Luz Maria Perez MD [address] [place] [address] Referring Cardiology 10/27/21 Abhinav Garrett MD [address] [place] [address] Primary Staff Physician Cardiology 12/30/21 Luz Maria Perez MD [address] [address] Panel Assembler Internal Medicine 11/22/24 Erin Morris MD [address] [place] [address] Panel Assembler Cardiology 11/22/24 Roscoe Arias MD [address] [facility] [place] [address] Surgeon Cardiac Surg 11/23/24 Information Security Director Relationship Specialty Start Date End Date Roscoe Umanzor MD, PhD [address] [place] [address] PCP - General Internal Medicine 12/20/24 Luz Maria Perez MD [address] [place] [address] Referring Cardiology 10/27/21 Abhinav Garrett MD [address] [place] [address] Primary Staff Physician Cardiology 12/30/21 Luz Maria Perez MD [address] [place] [address] Panel Assembler Internal Medicine 11/22/24 Erin Morris MD [address] [place] [address] Panel Assembler Cardiology 11/22/24 Roscoe Arias MD [address] [place] [address] Surgeon Cardiac Surg 11/23/24 Information Security Director Relationship Specialty Start Date End Date Roscoe Umanzor MD, PhD [address] [place] [address] PCP - General Internal Medicine 12/20/24 Luz Maria Perez MD [address] [address] Referring Cardiology 10/27/21 Abhinav Garrett MD [address] [place] [address] Primary Staff Physician Cardiology 12/30/21 Luz Maria Perez MD [address] [address] Panel Assembler Internal Medicine 11/22/24 Erin Morris MD [address] [place] [address] Panel Assembler Cardiology 11/22/24 Roscoe Arias MD [address] [place] [address] Surgeon Cardiac Surg 11/23/24 Information Security Director Relationship Specialty Start Date End Date Roscoe Umanzor MD, PhD [address] [facility] [address] PCP - General Internal Medicine 12/20/24 Luz Maria Perez MD [address] [address] Referring Cardiology 10/27/21 Abhinav Garrett MD [address] [place] [address] Primary Staff Physician Cardiology 12/30/21 Luz Maria Perez MD [address] [address] Panel Assembler Internal Medicine 11/22/24 Erin Morris MD [address] [place] [address] Panel Assembler Cardiology 11/22/24 Roscoe Arias MD [address] [place] [address] Surgeon Cardiac Surg 11/23/24 Information Security Director Relationship Specialty Start Date End Date Roscoe Umanzor MD, PhD [address] [facility] [address] [address] PCP - General Internal Medicine 12/20/24 Luz Maria Peerz MD [address] [address] Referring Cardiology 10/27/21 Abhinav Garrett MD [address] [place] [address] Primary Staff Physician Cardiology 12/30/21 Luz Maria Perez MD [address] [place] [address] Panel Assembler Internal Medicine 11/22/24 Erin Morris MD [address] [place] [address] Panel Assembler Cardiology 11/22/24 Roscoe Arias MD [address] [place] [address] Surgeon Cardiac Surg 11/23/24 Information Security Director Relationship Specialty Start Date End Date Roscoe Umanzor MD, PhD [address] [place] [address] PCP - General Internal Medicine 12/20/24 Luz Maria Perez MD [address] [place] [address] Referring Cardiology 10/27/21 Abhinav Garrett MD [address] [place] [address] Primary Staff Physician Cardiology 12/30/21 Luz Maria Perez MD [address] [place] [address] Panel Assembler Internal Medicine 11/22/24 Erin Morris MD [address] [place] [address] Panel Assembler Cardiology 11/22/24 Roscoe Arias MD [address] [place] [address] Surgeon Cardiac Surg 11/23/24 Information Security Director Relationship Specialty Start Date End Date Robyn Taylor APRN.SENIOR TECHNICAL ARCHITECT [address] [place], [place] [address] PCP - General Primary Care 01/10/25 Luz Maria Perez MD [address] [place] [address] Referring Cardiology 10/27/21 Abhinav Garrett MD [address] [place] [address] Primary Staff Physician Cardiology 12/30/21 Luz Maria Perez MD [address] [place] [address] Panel Assembler Internal Medicine 11/22/24 Erin Morris MD [address] [place] [address] Panel Assembler Cardiology 11/22/24 Roscoe Arias MD [address] [place] [address] Surgeon Cardiac Surg 11/23/24 Information Security Director Relationship Specialty Start Date End Date Robyn Taylor APRN.SENIOR TECHNICAL ARCHITECT [address] [place] [address] PCP - General Primary Care 01/10/25 Luz Maria Perez MD [address] [place] [address] Referring Cardiology 10/27/21 Abhinav Garrett MD [address] [place] [address] Primary Staff Physician Cardiology 12/30/21 Luz Maria Perez MD [address] [address] Panel Assembler Internal Medicine 11/22/24 Erin Morris MD [address] [place] [address] Panel Assembler Cardiology 11/22/24 Roscoe Arias MD [address] [place], [place] 4598295 Surgeon Cardiac Surg 11/23/24 Kristal Desai MD [address] [address] Endocrinology 01/09/24 Madison Regan MD [address] [place] [address] [id number] (Work) Orthopedics 01/10/25 Freddy Mujica MD [address] [place] [address] Anesthesiology 01/10/25 Information Security Director Relationship Specialty Start Date End Date Robyn Taylor, RIC.SENIOR TECHNICAL ARCHITECT [address] [place] [address] PCP - General Primary Care 01/10/25 Luz Maria Perez MD [address] [address] Referring Cardiology 10/27/21 Abhinav Garrett MD [address] [place] [address] Primary Staff Physician Cardiology 12/30/21 Luz Maria Perez MD [address] [address] Panel Assembler Internal Medicine 11/22/24 Erin Morris MD [address] [place] [address] Panel Assembler Cardiology 11/22/24 Roscoe Arias MD [address] [place] [address] Surgeon Cardiac Surg 11/23/24 Kristal Desai MD [address] [address] Endocrinology 01/09/24 Madison Regan MD [address] [place] [address] -[phone] (Work) Orthopedics 01/10/25 Freddy Mujica MD [address] [place] [address] Anesthesiology 01/10/25 Information Security Director Relationship Specialty Start Date End Date Robyn Taylor, LUMBER HACKER.SENIOR TECHNICAL ARCHITECT [address] [place] [address] PCP - General Primary Care 01/10/25 Luz Maria Perez MD [address] [address] Referring Cardiology 10/27/21 Abhinav Garrett MD [address] [place] [address] Primary Staff Physician Cardiology 12/30/21 Luz Maria Perez MD [address] [address] Panel Assembler Internal Medicine 11/22/24 Erin Morris MD [address] [place] [address] Panel Assembler Cardiology 11/22/24 Roscoe Arias MD [address] [place] [address] Surgeon Cardiac Surg 11/23/24 Kristal Desai MD [address] [place] [address] Endocrinology 01/09/24 Madison Regan MD [address] [place] [address] [id number] (Work) Orthopedics 01/10/25 Freddy Mujica MD [address] [place] [address] Anesthesiology 01/10/25 Information Security Director Relationship Specialty Start Date End Date Robyn Taylor, LUMBER HACKER.SENIOR TECHNICAL ARCHITECT [address] [place] [address] PCP - General Primary Care 01/10/25 Luz Maria Perez MD [address] [address] Referring Cardiology 10/27/21 Abhinav Garrett MD [address] [place] [address] Primary Staff Physician Cardiology 12/30/21 Luz Maria Perez MD [address] [address] Panel Assembler Internal Medicine 11/22/24 Erin Morris MD [address] [place] [address] Panel Assembler Cardiology 11/22/24 Roscoe Arias MD [address] [place] [address] Surgeon Cardiac Surg 11/23/24 Kristal Desai MD [address] [place] [address] Endocrinology 01/09/24 Madison Regan MD [address] [place] [address] [id number] (Work) Orthopedics 01/10/25 Freddy Mujica MD [address] [place] [address] Anesthesiology 01/10/25 13, Pharmacist [address] [place], [place] [id number] Pharmacist Pharmacy 01/15/25 Information Security Director Relationship Specialty Start Date End Date Robyn Taylor, RIC.SENIOR TECHNICAL ARCHITECT [address] [place] [address] PCP - General Primary Care 01/10/25 Luz Maria Perez MD [address] [address] Referring Cardiology 10/27/21 Abhinav Garrett MD [address] [place] [address] Primary Staff Physician Cardiology 12/30/21 Luz Maria Perez MD [address] [address] Panel Assembler Internal Medicine 11/22/24 Erin Morris MD [address] [place] [address] Panel Assembler Cardiology 11/22/24 Roscoe Arias MD [address] [place] [address] Surgeon Cardiac Surg 11/23/24 Kristal Desai MD [address] [address] Endocrinology 01/09/24 Madison Regan MD [address] [place] [address] [phone] (Work) Orthopedics 01/10/25 Freddy Mujica MD [address] [place] [address] Anesthesiology 01/10/25 13, Pharmacist [address] [place] [address] Pharmacist Pharmacy 01/15/25 Information Security Director Relationship Specialty Start Date End Date Robyn Taylor, RIC.SENIOR TECHNICAL ARCHITECT [address] [place] [address] PCP - General Primary Care 01/10/25 Luz Maria Perez MD [address] [address] Referring Cardiology 10/27/21 Abhinav Garrett MD [address] [place] [address] Primary Staff Physician Cardiology 12/30/21 Luz Maria Perez MD [address] [address] Panel Assembler Internal Medicine 11/22/24 Erin Morris MD [address] [place] [address] Panel Assembler Cardiology 11/22/24 Roscoe Arias MD [address] [place] [address] Surgeon Cardiac Surg 11/23/24 Kristal Desai MD [address] [address] Endocrinology 01/09/24 Madison Regan MD [address] [place] [address] -[phone] (Work) Orthopedics 01/10/25 Freddy Mujica MD [address] [place] [address] Anesthesiology 01/10/25 13, Pharmacist [address] [place] [address] Pharmacist Pharmacy 01/15/25 Information Security Director Relationship Specialty Start Date End Date Goldy Taylortavon Cohen, LUMBER HACKER.SENIOR TECHNICAL ARCHITECT [address] [place] [address] PCP - General Primary Care 01/10/25 Luz Maria Perez MD [address] [address] Referring Cardiology 10/27/21 Abhinav Garrett MD [address] [place], [place] 6[address] Primary Staff Physician Cardiology 12/30/21 Luz Maria Perez MD [address] [address] Panel Assembler Internal Medicine 11/22/24 Erin Morris MD [address] [place] [address] Panel Assembler Cardiology 11/22/24 Roscoe Arias MD [address] [place] [address] Surgeon Cardiac Surg 11/23/24 Kristal Desai MD [address] [place] [address] Endocrinology 01/09/24 Madison Regan MD [address] [place] [address] [phone] (Work) Orthopedics 01/10/25 Freddy Mujica MD [address] [place] [address] [phone] Anesthesiology 01/10/25 13, Pharmacist [address] [place] [address] Pharmacist Pharmacy 01/15/25 Team Status: Active Member Role/Relationship Status Dates ROSCOE UMANOZR Primary Care Provider Active Team Status: Inactive Member Role/Relationship Status Dates EDPHILLY, ERNA Primary Care Provider Active Star t: December 12, 2024 End: December 12, 2024 Dr. Freddy Mujica MD Attending Provider Active Start: December 12, 2024 End: December 12, 2024 Dr. Freddy Mujica MD Referring Provider Active Start: December 12, 2024 End: December 12, 2024 Team Status: Inactive Member Role/Relationship Status Dates ERNA AMBRIZ Primary Care Provider Active Star t: January 16, 2025 End: January 16, 2025 Dr. Freddy Mujica MD Attending Provider Active Start: January 16, 2025 End: January 16, 2025 Dr. Freddy Mujica MD Referring Provider Active Start: January 16, 2025 End: January 16, 2025 Team Status: Active Member Role/Relationship Status Dates ERNA AMBRIZ Primary Care Provider Active Star t: January 17, 2025 Dr. Freddy Mujica MD Attending Provider Active Start: January 17, 2025 Dr. Freddy Mujica MD Referring Provider Active Start: January 17, 2025 Information Security Director Relationship Specialty Start Date End Date Robyn Taylor APRN.SENIOR TECHNICAL ARCHITECT [address] [place] [address] PCP - General Primary Care 01/10/25 Luz Maria Perez MD [address] [place] [address] Referring Cardiology 10/27/21 Abhinav Garrett MD [address] [place] [address] Primary Staff Physician Cardiology 12/30/21 Luz Maria Perez MD [address] [address] Panel Assembler Internal Medicine 11/22/24 Erin Morris MD [address] [place] [address] Panel Assembler Cardiology 11/22/24 Roscoe Arias MD [address] [place] [address] Surgeon Cardiac Surg 11/23/24 Kristal Desai MD [address] [address] Endocrinology 01/09/24 Madison Regan MD [address] [place] [address] -[phone] (Work) Orthopedics 01/10/25 MonroeFreddy MD [address] [place] [address] Anesthesiology 01/10/25 13, Pharmacist [address] [place], [place] [phone] Pharmacist Pharmacy 01/15/25 Information Security Director Relationship Specialty Start Date End Date Roscoe Umanzor MD, PhD [address] [place] [address] PCP - General Internal Medicine 12/20/24 01/09/25 Luz Maria Perez MD [address] [address] Referring Cardiology 10/27/21 Abhinav Garrett MD [address] [place] [address] Primary Staff Physician Cardiology 12/30/21 Luz Maria Perez MD [address] [address] Panel Assembler Internal Medicine 11/22/24 Erin Morris MD [address] [place] [address] Panel Assembler Cardiology 11/22/24 Roscoe Arias MD [address] [place] [address] Surgeon Cardiac Surg 11/23/24 Kristal Desai MD [address] [address] Endocrinology 01/09/24 Information Security Director Relationship Specialty Start Date End Date Sruthi Ambrosio APRN.SENIOR TECHNICAL ARCHITECT [address] [place] [address] PCP - General Primary Care 11/18/23 12/19/24 Roscoe Umanzor MD, PhD [address] [place] [address] PCP - General Internal Medicine 12/20/24 01/09/25 Robyn Taylor LUMBER HACKER.SENIOR TECHNICAL ARCHITECT [address] [place] [address] PCP - General Primary Care 01/10/25 Luz Maria Perez MD Panel Assembler Cardiology 10/13/21 11/21/24 Luz Maria Perez MD [address] [address] Referring Cardiology 10/27/21 Abhinav Garrett MD [address] [place] [address] Primary Staff Physician Cardiology 12/30/21 Luz Maria Perez MD [address] [address] Panel Assembler Internal Medicine 11/22/24 Erin Morris MD [address] [place] [address] Panel Assembler Cardiology 11/22/24 Roscoe Arias MD [address] [place] [address] Surgeon Cardiac Surg 11/23/24 Kristal Desai MD [address] [place] [address] Endocrinology 01/09/24 Madison Regan MD [address] [place] [address] [phone] (Work) Orthopedics 01/10/25 Freddy Mujica MD [address] [place] [address] Anesthesiology 01/10/25 13, Pharmacist [address] [place] [address] Pharmacist Pharmacy 01/15/25 Information Security Director Relationship Specialty Start Date End Date Robyn Taylor, LUMBER HACKER.SENIOR TECHNICAL ARCHITECT [address] [place] [address] PCP - General Primary Care 01/10/25 Luz Maria Perez MD [address] [address] [address] Referring Cardiology 10/27/21 Abhinav Garrett MD [address] [place] [address] Primary Staff Physician Cardiology 12/30/21 Luz Maria Perez MD [address] [address] Panel Assembler Internal Medicine 11/22/24 Erin Morris MD 95 [place] [address] Panel Assembler Cardiology 11/22/24 Roscoe Arias MD [address]00 [place] [address] Surgeon Cardiac Surg 11/23/24 Kristal Desai MD [address] [place] [address] Endocrinology 01/09/24 Madison Regan MD [address]75 [place] [address] -[phone] (Work) Orthopedics 01/10/25 Freddy Mujica MD [address] [place] [address] Anesthesiology 01/10/25 13, Pharmacist [address] [place] [address] Pharmacist Pharmacy 01/15/25 Information Security Director Relationship Specialty Start Date End Date PeteRobyn jack, LUMBER HACKER.SENIOR TECHNICAL ARCHITECT [address] [facility] [place] [address] PCP - General Primary Care 01/10/25 Luz Maria Perez MD [address] [place] [address] Referring Cardiology 10/27/21 Abhinav Garrett MD [address] [place], [place] 8692395 Primary Staff Physician Cardiology 12/30/21 Luz Maria Perez MD [address] [address] Panel Assembler Internal Medicine 11/22/24 Erin Morris MD [address] [place] [address] Panel Assembler Cardiology 11/22/24 Roscoe Arias MD [address]00 [place] [address] Surgeon Cardiac Surg 11/23/24 Kristal Desai MD [address] [place] [address] Endocrinology 01/09/24 Madison Regan MD [address] [place] [address] -[phone] (Work) Orthopedics 01/10/25 Freddy Mujica MD [address] [place] [address] Anesthesiology 01/10/25 13, Pharmacist [address] [place], [place] [phone] Pharmacist Pharmacy 01/15/25 Information Security Director Relationship Specialty Start Date End Date Robyn Taylor APRN.SENIOR TECHNICAL ARCHITECT [address] [place] [address] PCP - General Primary Care 01/10/25 Luz Maria Perez MD [address] [address] Referring Cardiology 10/27/21 Abhinav Garrett MD [address] [place] [address] Primary Staff Physician Cardiology 12/30/21 Luz Maria Perez MD [address] [address] Panel Assembler Internal Medicine 11/22/24 Erin Morris MD [address] [place] [address] Panel Assembler Cardiology 11/22/24 Roscoe Arias MD [address] [place] [address] Surgeon Cardiac Surg 11/23/24 Kristal Desai MD [address] [place] [address] [phone] Endocrinology 01/09/24 Madison Regan MD [address] [place] [address] -[phone] (Work) Orthopedics 01/10/25 Ghada Mejía DO [address] [place], [place] 569731 Orthopedics 01/30/25 Freddy Mujica MD [address] [place] [address] Anesthesiology 01/10/25 13, Pharmacist [address] [place] [address] Pharmacist Pharmacy 01/15/25 Information Security Director Relationship Specialty Start Date End Date Robyn Taylor, LUMBER HACKER.SENIOR TECHNICAL ARCHITECT [address] [place] [address] PCP - General Primary Care 01/10/25 Luz Maria Perez MD [address] [place] [address] Referring Cardiology 10/27/21 Abhinav Garrett MD [address] [place] [address] Primary Staff Physician Cardiology 12/30/21 Luz Maria Perez MD [address] [facility] 206 [place] [address] Panel Assembler Internal Medicine 11/22/24 Erin Morris MD [address] [place] [address] Panel Assembler Cardiology 11/22/24 Roscoe Arias MD [address]00 [place] [address] Surgeon Cardiac Surg 11/23/24 Kristal Desai MD 830 [address] [facility] 101 [place] [address] Endocrinology 01/09/24 Madison Regan MD [address] [place] [address] [id number] (Work) Orthopedics 01/10/25 Ghada Mejía DO [address] [place] [address] Orthopedics 01/30/25 Freddy Mujica MD [address] [place] [address] Anesthesiology 01/10/25 13, Pharmacist [address] [place] [address] Pharmacist Pharmacy 01/15/25 Information Security Director Relationship Specialty Start Date End Date Robyn Taylor, LUMBER HACKER.SENIOR TECHNICAL ARCHITECT [address] [place] [address] PCP - General Primary Care 01/10/25 Luz Maria Perez MD [address] [facility] 206 [place] [address] Referring Cardiology 10/27/21 Abhinav Garrett MD [address]00 [place] [address] Primary Staff Physician Cardiology 12/30/21 Luz Maria Perez MD [address] [place] [address] Panel Assembler Internal Medicine 11/22/24 Erin Morris MD [address] [place] [address] Panel Assembler Cardiology 11/22/24 Roscoe Arias MD [address] [place] [address] Surgeon Cardiac Surg 11/23/24 Kristal Desai MD 830 [facility] 101 [place] [address] Endocrinology 01/09/24 Madison Regan MD [address]75 [place] [address] -[id number] (Work) Orthopedics 01/10/25 Ghada Mejía DO 721 [place] [address] Orthopedics 01/30/25 MonroeFreddy MD [address] [place] [address] Anesthesiology 01/10/25 13, Pharmacist 79[address] [place], [place] [phone] Pharmacist Pharmacy 01/15/25 Information Security Director Relationship Specialty Start Date End Date Robyn Taylor, LUMBER HACKER.SENIOR TECHNICAL ARCHITECT [address] [place] [address] PCP - General Primary Care 01/10/25 Luz Maria Perez MD [address] [address] Referring Cardiology 10/27/21 Abhinav Garrett MD [address] [place] [address] Primary Staff Physician Cardiology 12/30/21 Luz Maria Perez MD [address] [address] Panel Assembler Internal Medicine 11/22/24 Erin Morris MD [address] [place] [address] Panel Assembler Cardiology 11/22/24 Roscoe Arias MD [address] [place] [address] Surgeon Cardiac Surg 11/23/24 Kristal Desai MD [address] [place] [address] Endocrinology 01/09/24 Madison Regan MD [address]75 [place] [address] -[id number] (Work) Orthopedics 01/10/25 Ghada Mejía DO [address] [place] [address] Orthopedics 01/30/25 Freddy Mujica MD 546 [place] [address] Anesthesiology 01/10/25 13, Pharmacist [address] [place] [address] Pharmacist Pharmacy 01/15/25 Information Security Director Relationship Specialty Start Date End Date Robyn Taylor APRN.SENIOR TECHNICAL ARCHITECT [address] [place] [address] PCP - General Primary Care 01/10/25 Luz Maria Perez MD [address] [address] Referring Cardiology 10/27/21 Abhinav Garrett MD [address] [place] [address] Primary Staff Physician Cardiology 12/30/21 Luz Maria Perez MD [address] [address] Panel Assembler Internal Medicine 11/22/24 Erin Morris MD [address] [place] [address] Panel Assembler Cardiology 11/22/24 Roscoe Arias MD [address]00 [place] [address] Surgeon Cardiac Surg 11/23/24 Kristal Desai MD [address] [phone] Endocrinology 01/09/24 Madison Regan MD [address]75 [place] [address] -[id number] (Work) Orthopedics 01/10/25 Ghada Mejía DO [address] [place] [address] Orthopedics 01/30/25 Freddy Mujica MD [address] [place] [address] Anesthesiology 01/10/25 13, Pharmacist 90[address] [place], [place] [phone] Pharmacist Pharmacy 01/15/25 Information Security Director Relationship Specialty Start Date End Date Renay Garrett MD [address] [place], [place] 203071 PCP - General Internal Medicine/Pediatrics 02/27/25 Luz Maria Perez MD [address] [address] Referring Cardiology 10/27/21 Abhinav Garrett MD [address]00 [place] [address] Primary Staff Physician Cardiology 12/30/21 Luz Maria Perez MD [address] [address] Panel Assembler Internal Medicine 11/22/24 Erin Morris MD [address] [place] [address] Panel Assembler Cardiology 11/22/24 Roscoe Arias MD [address]00 [place] [address] Surgeon Cardiac Surg 11/23/24 Kristal Desai MD [facility] [address] [id number] Endocrinology 01/09/24 Madison Regan MD 3975 [place] [address] -[id number] (Work) Orthopedics 01/10/25 Ghada Mejía DO [address] [place], [place] 804581 Orthopedics 01/30/25 Freddy Mujica MD 546 [place] [address] Anesthesiology 01/10/25 13, Pharmacist [address]151 [place] [address] Pharmacist Pharmacy 01/15/25 Information Security Director Relationship Specialty Start Date End Date Renay Garrett MD [address] [place], [place] 825991 PCP - General Internal Medicine/Pediatrics 02/27/25 Luz Maria Perez MD [address] [place] [address] Referring Cardiology 10/27/21 Abhinav Garrett MD [address] [place] [address] Primary Staff Physician Cardiology 12/30/21 Luz Maria Perez MD [address] [address] Panel Assembler Internal Medicine 11/22/24 Erin Morris MD [address] [place] [address] Panel Assembler Cardiology 11/22/24 Roscoe Arias MD [address]00 [place] [address] Surgeon Cardiac Surg 11/23/24 Kristal Desai MD 830 [address] [facility] 101 [place] [address] Endocrinology 01/09/24 Madison Regan MD [address]75 [place] [address] -[id number] (Work) Orthopedics 01/10/25 Ghada Mejía DO 721 [place] [address] Orthopedics 01/30/25 Freddy uMjica MD [address] [place] [address] Anesthesiology 01/10/25 13, Pharmacist 86712 [place], [place] [phone] Pharmacist Pharmacy 01/15/25 Information Security Director Relationship Specialty Start Date End Date Robyn Taylor APRN.SENIOR TECHNICAL ARCHITECT [address] [place] [address] PCP - General Primary Care 02/28/25 Luz Maria Perez MD [address] [address] Referring Cardiology 10/27/21 Abhinav Garrett MD [address] [place], [place] 5931695 Primary Staff Physician Cardiology 12/30/21 Luz Maria Perez MD [address] [place] [address] Panel Assembler Internal Medicine 11/22/24 Erin Morris MD [address] [place] [address] Panel Assembler Cardiology 11/22/24 Roscoe Arias MD [address]00 [place] [address] Surgeon Cardiac Surg 11/23/24 Kristal Desai MD [address] [place] [address] Endocrinology 01/09/24 Madison Regan MD 3975 [place] [address] -[id number] (Work) Orthopedics 01/10/25 Ghada Mejía DO 721 [place] [address] Orthopedics 01/30/25 Freddy Mujica MD 546 [place] [address] Anesthesiology 01/10/25 13, Pharmacist [address] [place] [address] Pharmacist Pharmacy 01/15/25 Information Security Director Relationship Specialty Start Date End Date Renay Garrett MD 1740 [place] [address] PCP - General Internal Medicine/Pediatrics 03/06/25 Luz Maria Perez MD [address] [address] Referring Cardiology 10/27/21 Abhinav Garrett MD [address] [place] [address] Primary Staff Physician Cardiology 12/30/21 Luz Maria Perez MD [address] [address] Panel Assembler Internal Medicine 11/22/24 Erin Morris MD [address] [place] [address] Panel Assembler Cardiology 11/22/24 Roscoe Arias MD [address]00 [place] [address] Surgeon Cardiac Surg 11/23/24 Kristal Desai MD [address] [address] Endocrinology 01/09/24 Madison Regan MD [address] [place] [address] -[id number] (Work) Orthopedics 01/10/25 Ghada Mejía DO [address] [place] [address] Orthopedics 01/30/25 Freddy Mujica MD [address] [place] [address] Anesthesiology 01/10/25 13, Pharmacist 6[address]45 [place] [address] Pharmacist Pharmacy 01/15/25 Information Security Director Relationship Specialty Start Date End Date Robyn Taylor APRN.SENIOR TECHNICAL ARCHITECT [address] [place] [address] PCP - General Primary Care 02/28/25 03/05/25 Luz Maria Perez MD [address] [address] Referring Cardiology 10/27/21 Abhinav Garrett MD [address] [place] [address] Primary Staff Physician Cardiology 12/30/21 Luz Maria Perez MD [address] [address] Panel Assembler Internal Medicine 11/22/24 Erin Morris MD [address] [place] [address] Panel Assembler Cardiology 11/22/24 Roscoe Arias MD [address]00 [place] [address] Surgeon Cardiac Surg 11/23/24 Kristal Desai MD [address] [place] [address] Endocrinology 01/09/24 Madison Regan MD [address] [place] [address] -[id number] (Work) Orthopedics 01/10/25 Ghada Mejía DO 721 [place] [address] Orthopedics 01/30/25 Freddy Mujica MD [address] [place] [address] [phone] Anesthesiology 01/10/25 13, Pharmacist [address]384 [place] [address] Pharmacist Pharmacy 01/15/25 Information Security Director Relationship Specialty Start Date End Date Renay Garrett MD 17[address] [place] [address] PCP - General Internal Medicine/Pediatrics 03/06/25 Luz Maria Perez MD [address] [address] Referring Cardiology 10/27/21 Abhinav Garrett MD [address] [place] [address] Primary Staff Physician Cardiology 12/30/21 Luz Maria Perez MD [address] [address] Panel Assembler Internal Medicine 11/22/24 Erin Morris MD [address] [place] [address] Panel Assembler Cardiology 11/22/24 Roscoe Arias MD [address]00 [place] [address] Surgeon Cardiac Surg 11/23/24 Kristal Desai MD [address] [address] Endocrinology 01/09/24 Madison Regan MD [address] [place] [address] -[phone] (Work) Orthopedics 01/10/25 Ghada Mejía DO [address] [place], [place] 270[address] Orthopedics 01/30/25 Freddy Mujica MD 546 [place] [address] Anesthesiology 01/10/25 13, Pharmacist [address] [place], [place] [phone] Pharmacist Pharmacy 01/15/25 Information Security Director Relationship Specialty Start Date End Date Renay Garrett MD [address] [place], [place] 39884691 PCP - General Internal Medicine/Pediatrics 03/06/25 Luz Maria Perez MD [address] [address] Referring Cardiology 10/27/21 Abhinav Garrett MD [address]00 [place] [address] Primary Staff Physician Cardiology 12/30/21 Luz Maria Perez MD [address] [address] Panel Assembler Internal Medicine 11/22/24 Erin Morris MD [address] [place] [address] Panel Assembler Cardiology 11/22/24 Roscoe Arias MD [address]00 [place] [address] Surgeon Cardiac Surg 11/23/24 Kristal Desai MD [address] [place] [address] Endocrinology 01/09/24 Madison Regan MD [address] [place] [address] -[id number] (Work) Orthopedics 01/10/25 Ghada Mejía DO [address] [place] [address] Orthopedics 01/30/25 Freddy Mujica MD 546 [place] [address] Anesthesiology 01/10/25 13, Pharmacist [phone] [place], [place] [phone] Pharmacist Pharmacy 01/15/25 Information Security Director Relationship Specialty Start Date End Date Robyn Taylor, LUMBER HACKER.SENIOR TECHNICAL ARCHITECT [address] [place] [address] PCP - General Primary Care 03/07/25 Luz Maria Perez MD [address] [place] [address] Referring Cardiology 10/27/21 Abhinav Garrett MD [address]00 [place] [address] Primary Staff Physician Cardiology 12/30/21 Luz Maria Perez MD [address] [place] [address] Panel Assembler Internal Medicine 11/22/24 Erin Morris MD [address] [place] [address] Panel Assembler Cardiology 11/22/24 Roscoe Arias MD [address] [place], [place] 8644895 Surgeon Cardiac Surg 11/23/24 Kristal Desai MD 830 [facility] 101 [place] [address] Endocrinology 01/09/24 Madison Regan MD [address] [place] [address] -[id number] (Work) Orthopedics 01/10/25 Ghada Mejía DO 721 [place] [address] Orthopedics 01/30/25 Freddy Mujica MD 546 [place] [address] Anesthesiology 01/10/25 13, Pharmacist [address]709 [place] [address] Pharmacist Pharmacy 01/15/25 Information Security Director Relationship Specialty Start Date End Date Robyn Taylor, RIC.SENIOR TECHNICAL ARCHITECT [address] [place] [address] PCP - General Primary Care 03/07/25 Luz Maria Peerz MD [address] [address] Referring Cardiology 10/27/21 Abhianv Garrett MD [address]509 [place], [place] 1689495 Primary Staff Physician Cardiology 12/30/21 Luz Maria Perez MD [address] [address] Panel Assembler Internal Medicine 11/22/24 Erin Morris MD [address] [place] [address] Panel Assembler Cardiology 11/22/24 Roscoe Arias MD [address]00 [place] [address] Surgeon Cardiac Surg 11/23/24 Kristal Desai MD [address] [address] Endocrinology 01/09/24 Madison Regan MD [address] [place] [address] -[id number] (Work) Orthopedics 01/10/25 Ghada Mejía DO 721 [place] [address] Orthopedics 01/30/25 Freddy Mujica MD [address] [place] [address] Anesthesiology 01/10/25 13, Pharmacist 66576 [place], [place] [phone] Pharmacist Pharmacy 01/15/25 Information Security Director Relationship Specialty Start Date End Date Robyn Taylor APRN.SENIOR TECHNICAL ARCHITECT [address] [place] [address] PCP - General Primary Care 03/07/25 Luz Maria Perez MD [address] [address] Referring Cardiology 10/27/21 Abhinav Garrett MD [address]00 [place] [address] Primary Staff Physician Cardiology 12/30/21 Luz Maria Perez MD [address] [address] Panel Assembler Internal Medicine 11/22/24 Erin Morris MD [address] [place] [address] Panel Assembler Cardiology 11/22/24 Roscoe Arias MD [address] [place] [address] Surgeon Cardiac Surg 11/23/24 Kristal Desai MD [address] [place] [address] Endocrinology 01/09/24 Madison Regan MD [address] [place] [address] -[id number] (Work) Orthopedics 01/10/25 Ghada Mejía DO [address] [place], [place] [id number] Orthopedics 01/30/25 Freddy Mujica MD [address] [place] [address] [id number] Anesthesiology 01/10/25 13, Pharmacist [phone] [facility] [place] [address] Pharmacist Pharmacy 01/15/25 Team Status: Active Member Role/Relationship Status Dates No Primary Care Physician Primary Care Provider Active Team Status: Active Member Role/Relationship Status Dates ERNA AMBRIZ Primary Care Provider Active Star t: February 05, 2025 Dr. Freddy Mujica MD Attending Provider Active Start: February 05, 2025 Dr. Freddy Mujica MD Referring Provider Active Start: February 05, 2025 Team Status: Active Member Role/Relationship Status Dates Dr. Parminder Aldridge MD Attending Provider Active Start: March 15, 2025 No Primary Care Physician Primary Care Provider Active Start: March 15, 2025 No Primary Care Physician Referring Provider Active Start: March 15, 2025 Team Status: Inactive Member Role/Relationship Status Dates No Primary Care Physician Primary Care Provider Active Start: March 15, 2025 End: March 15, 2025 Dr. Nitin Irby MD Attending Provider Active S tart: March 15, 2025 End: March 15, 2025 Team Status: Inactive Member Role/Relationship Status Dates Dr. Parminder Aldridge MD Attending Provider Active Start: March 15, 2025 End: March 15, 2025 No Primary Care Physician Primary Care Provider Active Start: March 15, 2025 End: March 15, 2025 No Primary Care Physician Referring Provider Active Start: March 15, 2025 End: March 15, 2025 Information Security Director Relationship Specialty Start Date End Date Roscoe Umanzor MD 1493 [facility] [place] [address] PCP - General Internal Medicine 05/14/24 Roscoe Umanzor MD [address] [place] [address] Referring Physician Internal Medicine 05/14/24 Information Security Director Relationship Specialty Start Date End Date Roscoe Umanzor MD [address] [place] [address] PCP - General Internal Medicine 05/14/24 Roscoe Umanzor MD 1493 [place], [place] 102570 Referring Physician Internal Medicine 05/14/24 Information Security Director Relationship Specialty Start Date End Date Robyn Taylor APRN.SENIOR TECHNICAL ARCHITECT [address] [place] [address] PCP - General Primary Care 03/07/25 Luz Maria Perez MD [address] [address] Referring Cardiology 10/27/21 Abhinav Garrett MD [address]00 [place] [address] Primary Staff Physician Cardiology 12/30/21 Luz Maria Perez MD [address] [address] Panel Assembler Internal Medicine 11/22/24 Erin Morris MD [address] [place] [address] Panel Assembler Cardiology 11/22/24 Roscoe Arias MD [address]00 [place] [address] Surgeon Cardiac Surg 11/23/24 Kristal Desai MD [address] [place] [address] 754357 Endocrinology 01/09/24 Madison Regan MD 3975 [place] [address] -[id number] (Work) Orthopedics 01/10/25 Ghada Mejía DO [address] [place], [place] 801011 Orthopedics 01/30/25 Freddy Mujica MD [address] [place] [address] Anesthesiology 01/10/25 13, Pharmacist [address]36 [place] [address] Pharmacist Pharmacy 01/15/25 Information Security Director Relationship Specialty Start Date End Date Robyn Taylor, LUMBER HACKER.SENIOR TECHNICAL ARCHITECT [address] [place] [address] PCP - General Primary Care 03/07/25 Luz Maria Perez MD [address] [address] Referring Cardiology 10/27/21 Abhinav Garrett MD [address]00 [place] [address] Primary Staff Physician Cardiology 12/30/21 Luz Maria Perez MD [address] [address] Panel Assembler Internal Medicine 11/22/24 Erin Morris MD [address] [place] [address] Panel Assembler Cardiology 11/22/24 Roscoe Arias MD [address] [place] [address] Surgeon Cardiac Surg 11/23/24 Kristal Desai MD [address] [facility] [address] [place] [address] Endocrinology 01/09/24 Madison Regan MD [address] [place] [address] -[id number] (Work) Orthopedics 01/10/25 Ghada Mejía DO [address] [place] [address] Orthopedics 01/30/25 Freddy Mujica MD [address] [place] [address] Anesthesiology 01/10/25 13, Pharmacist [address] [place], [place] [phone] Pharmacist Pharmacy 01/15/25 Information Security Director Relationship Specialty Start Date End Date Robyn Taylor, LUMBER HACKER.SENIOR TECHNICAL ARCHITECT [address] [place] [address] PCP - General Primary Care 03/07/25 Luz Maria Perez MD [address] [place] [address] Referring Cardiology 10/27/21 Abhinav Garrett MD [address]00 [place] [address] Primary Staff Physician Cardiology 12/30/21 Luz Maria Perez MD [address] [place] [address] Panel Assembler Internal Medicine 11/22/24 Erin Morris MD [address] [place] [address] Panel Assembler Cardiology 11/22/24 Roscoe Arias MD [address]00 [place] [address] Surgeon Cardiac Surg 11/23/24 Kristal Desai MD 830 [facility] [address] [place] [address] Endocrinology 01/09/24 Madison Regan MD [address] [place] [address] -[id number] (Work) Orthopedics 01/10/25 Ghada Mejía DO [address] [place] [address] Orthopedics 01/30/25 MonroeFreddy MD [address] [place] [address] Anesthesiology 01/10/25 13, Pharmacist [address] [place], [place] [phone] Pharmacist Pharmacy 01/15/25 Information Security Director Relationship Specialty Start Date End Date Robyn Taylor APRN.SENIOR TECHNICAL ARCHITECT [address] [place] [address] PCP - General Primary Care 01/10/25 02/26/25 Renay Garrett MD 1740 [place] [address] PCP - General Internal Medicine/Pediatrics 02/27/25 02/27/25 Robyn Taylor APRN.SENIOR TECHNICAL ARCHITECT [address] [place] [address] PCP - General Primary Care 02/28/25 03/05/25 Renay Garrett MD [address] [place], [place] 669981 PCP - General Internal Medicine/Pediatrics 03/06/25 03/06/25 Robyn Taylor APRN.SENIOR TECHNICAL ARCHITECT [address] [place] [address] PCP - General Primary Care 03/07/25 Luz Maria Perez MD [address] [place] [address] Referring Cardiology 10/27/21 Abhinav Garrett MD [address]00 [place] [address] Primary Staff Physician Cardiology 12/30/21 Luz Maria Perez MD [address] [address] Panel Assembler Internal Medicine 11/22/24 Erin Morris MD [address] [place] [address] Panel Assembler Cardiology 11/22/24 Roscoe Arias MD [address]00 [place] [address] Surgeon Cardiac Surg 11/23/24 Kristal Desai MD [facility] [address] 127657 Endocrinology 01/09/24 Madison Regan MD [address]75 [place] [address] -[id number] (Work) Orthopedics 01/10/25 Ghada Mejía DO [address] [place], [place] 860681 Orthopedics 01/30/25 Freddy Mujica MD [address] [place] [address] Anesthesiology 01/10/25 13, Pharmacist [address]25 [place] [address] Pharmacist Pharmacy 01/15/25 Information Security Director Relationship Specialty Start Date End Date Robyn Taylor, RIC.SENIOR TECHNICAL ARCHITECT [address] [place] [address] PCP - General Primary Care 03/07/25 Luz Maria Perez MD [address] [address] Referring Cardiology 10/27/21 Abhinav Garrett MD [address]00 [place] [address] Primary Staff Physician Cardiology 12/30/21 Luz Maria Perez MD [address] [facility] 206 [place] [address] Panel Assembler Internal Medicine 11/22/24 Erin Morris MD [address] [place] [address] Panel Assembler Cardiology 11/22/24 Roscoe Arias MD [address]00 [place], [place] [id number] Surgeon Cardiac Surg 11/23/24 Kristal Desai MD 830 [address] [facility] 101 [place] [address] Endocrinology 01/09/24 Madison Regan MD [address]75 [place] [address] -[id number] (Work) Orthopedics 01/10/25 Ghada Mejía DO 721 [place] [address] Orthopedics 01/30/25 Freddy Mujica MD [address] [place] [address] Anesthesiology 01/10/25 13, Pharmacist [address] [place] [address] Pharmacist Pharmacy 01/15/25 Information Security Director Relationship Specialty Start Date End Date Robyn Taylor, RIC.SENIOR TECHNICAL ARCHITECT [address] [place] [address] PCP - General Primary Care 03/07/25 Luz Maria Perez MD [address] [address] Referring Cardiology 10/27/21 Abhinav Garrett MD [address]00 [place] [address] Primary Staff Physician Cardiology 12/30/21 Luz Maria Perez MD [address] [address] Panel Assembler Internal Medicine 11/22/24 Erin Morris MD [address] [place] [address] Panel Assembler Cardiology 11/22/24 Roscoe Arias MD 9500 [place] [address] Surgeon Cardiac Surg 11/23/24 Kristal Desai MD 830 [facility] [facility] [address] [place] [address] Endocrinology 01/09/24 Madison Regan MD [address] [place] [address] [id number] (Work) Orthopedics 01/10/25 Ghada Mejía DO [address] [place] [address] Orthopedics 01/30/25 Freddy Mujica MD [address] [place] [address] Anesthesiology 01/10/25 13, Pharmacist [address] [place], [place] [id number] Pharmacist Pharmacy 01/15/25 Team Status: Inactive Member Role/Relationship Status Dates ERNA AMBRIZ Primary Care Provider Active Star t: February 05, 2025 End: February 05, 2025 Dr. Freddy Mujica MD Attending Provider Active Start: February 05, 2025 End: February 05, 2025 Dr. Freddy Mujica MD Referring Provider Active Start: February 05, 2025 End: February 05, 2025 Information Security Director Relationship Specialty Start Date End Date Robyn Taylor, LUMBER HACKER.SENIOR TECHNICAL ARCHITECT [address] [place] [address] PCP - General Primary Care 03/07/25 Luz Maria Perez MD [address] [place] [address] Referring Cardiology 10/27/21 Abhinav Garrett MD [address] [place] [address] Primary Staff Physician Cardiology 12/30/21 Luz Maria Perez MD [address] [address] Panel Assembler Internal Medicine 11/22/24 Erin Morris MD [address] [place] [address] Panel Assembler Cardiology 11/22/24 Roscoe Arias MD [address] [place] [address] Surgeon Cardiac Surg 11/23/24 Kristal Desai MD [address] [address] Endocrinology 01/09/24 Madison Regan MD [address] [place] [address] [id number] (Work) Orthopedics 01/10/25 Ghada Mejía DO [address] [place] [address] Orthopedics 01/30/25 Freddy Mujica MD [address] [place] [address] Anesthesiology 01/10/25 13, Pharmacist [address] [place] [address] Pharmacist Pharmacy 01/15/25 Scheduled Active and Recently Administ ered Medications (unrecognized section and content) Medication Order 10/18/2021 10/19/2021 10/20/2021 sodium chloride flush 0.9 % injection 3 mL(Linked Group 1) 3 mL, IntraVENous, EVERY 8 HOURS, First dose on Tue10/20/21 at 1145, Until Discontinued, Flush line with 3-5 mL 1145 (Due)1945 (Due) Linked Groups Order Group 1: Saline lock IV (COMPLETED) Routine, CONTINUOUS, Starting on Tue10/20/21 at 1145, Until Specified And sodium chloride flush 0.9 % injection 3 mLJump to med 3 mL, IntraVENous, EVERY 8 HOURS, First dose on Tue10/20/21 at 1145, Until Discontinued
Flush line with 3-5 mL
Scheduled Medication Order 08/23/2022 08/24/2022 08/25/2022 lactated ringers infusion 250 mL/hr, IntraVENous, Once, On Tue08/25/22 at 1925, For 1 dose 1925 (Canceled Entry - Provider: Automatic Discharge Provider - Comment: Automatically canceled at discontinue of medication order) sodium chloride 0.9 % bolus 1,000 mL (COMPLETED) 1,000 mL, IntraVENous, at 1,000 mL/hr, Administer over 1 Hours, Once, On Tue08/25/22 at 1720, For 1 dose 1733 (New Bag - Prov ider: Aga Christianson, EMT)1833 (Stopped - Provider: Itzel Jordan RN) sodium chloride 0.9 % bolus 1,000 mL (COMPLETED) 1,000 mL, IntraVENous, at 1,000 mL/hr, Administer over 1 Hours, Once, On Tue08/25/22 at 1725, For 1 dose 1747 (New Bag - Prov ider: Itzel Jordan RN)1847 (Stopped - Provider: Itzel Jordan RN) sodium chloride 0.9 % bolus 1,000 mL (COMPLETED) 1,000 mL, IntraVENous, at 1,000 mL/hr, Administer over 1 Hours, Once, On Tue08/25/22 at 1725, For 1 dose 1808 (New Bag - Prov ider: Itzel Jordan RN)2005 (Stopped - Provider: Lulu Franklin RN) Source Comments (unrecognize d section and content) In the event this informatio n is protected by the Federal Confidentiality of Alcohol and Drug Abuse Patient Records regulations: The Federal rules restrict any use of the information to criminally investigate or prosecute any alcohol or drug abuse patient.[facility] the event this information is protected by the Federal Confidentiality of Alcohol and Drug Abuse Patient Records regulations: The Federal rules restrict any use of the information to criminally investigate or prosecute any alcohol or drug abuse patient.[facility] HospitalIn the event this information is protected by the Federal Confidentiality of Alcohol and Drug Abuse Patient Records regulations: The Federal rules restrict any use of the information to criminally investigate or prosecute any alcohol or drug abuse patient.[facility] HospitalIn the event this information is protected by the Federal Confidentiality of Alcohol and Drug Abuse Patient Records regulations: The Federal rules restrict any use of the information to criminally investigate or prosecute any alcohol or drug abuse patient.[facility] HospitalIn the event this information is protected by the Federal Confidentiality of Alcohol and Drug Abuse Patient Records regulations: The Federal rules restrict any use of the information to criminally investigate or prosecute any alcohol or drug abuse patient.[facility] HospitalIn the event this information is protected by the Federal Confidentiality of Alcohol and Drug Abuse Patient Records regulations: The Federal rules restrict any use of the information to criminally investigate or prosecute any alcohol or drug abuse patient.[facility] HospitalIn the event this information is protected by the Federal Confidentiality of Alcohol and Drug Abuse Patient Records regulations: The Federal rules restrict any use of the information to criminally investigate or prosecute any alcohol or drug abuse patient.[facility] HospitalIn the event this information is protected by the Federal Confidentiality of Alcohol and Drug Abuse Patient Records regulations: The Federal rules restrict any use of the information to criminally investigate or prosecute any alcohol or drug abuse patient.[facility] HospitalIn the event this information is protected by the Federal Confidentiality of Alcohol and Drug Abuse Patient Records regulations: The Federal rules restrict any use of the information to criminally investigate or prosecute any alcohol or drug abuse patient.[facility] HospitalIn the event this information is protected by the Federal Confidentiality of Alcohol and Drug Abuse Patient Records regulations: The Federal rules restrict any use of the information to criminally investigate or prosecute any alcohol or drug abuse patient.[facility] HospitalIn the event this information is protected by the Federal Confidentiality of Alcohol and Drug Abuse Patient Records regulations: The Federal rules restrict any use of the information to criminally investigate or prosecute any alcohol or drug abuse patient.[facility] HospitalIn the event this information is protected by the Federal Confidentiality of Alcohol and Drug Abuse Patient Records regulations: The Federal rules restrict any use of the information to criminally investigate or prosecute any alcohol or drug abuse patient.[facility] HospitalIn the event this information is protected by the Federal Confidentiality of Alcohol and Drug Abuse Patient Records regulations: The Federal rules restrict any use of the information to criminally investigate or prosecute any alcohol or drug abuse patient.[facility] HospitalIn the event this information is protected by the Federal Confidentiality of Alcohol and Drug Abuse Patient Records regulations: The Federal rules restrict any use of the information to criminally investigate or prosecute any alcohol or drug abuse patient.[facility] HospitalIn the event this information is protected by the Federal Confidentiality of Alcohol and Drug Abuse Patient Records regulations: The Federal rules restrict any use of the information to criminally investigate or prosecute any alcohol or drug abuse patient.[facility] HospitalIn the event this information is protected by the Federal Confidentiality of Alcohol and Drug Abuse Patient Records regulations: The Federal rules restrict any use of the information to criminally investigate or prosecute any alcohol or drug abuse patient.[facility] HospitalIn the event this information is protected by the Federal Confidentiality of Alcohol and Drug Abuse Patient Records regulations: The Federal rules restrict any use of the information to criminally investigate or prosecute any alcohol or drug abuse patient.[facility] HospitalIn the event this information is protected by the Federal Confidentiality of Alcohol and Drug Abuse Patient Records regulations: The Federal rules restrict any use of the information to criminally investigate or prosecute any alcohol or drug abuse patient.[facility] HospitalIn the event this information is protected by the Federal Confidentiality of Alcohol and Drug Abuse Patient Records regulations: The Federal rules restrict any use of the information to criminally investigate or prosecute any alcohol or drug abuse patient.[facility] HospitalIn the event this information is protected by the Federal Confidentiality of Alcohol and Drug Abuse Patient Records regulations: The Federal rules restrict any use of the information to criminally investigate or prosecute any alcohol or drug abuse patient.[facility] HospitalIn the event this information is protected by the Federal Confidentiality of Alcohol and Drug Abuse Patient Records regulations: The Federal rules restrict any use of the information to criminally investigate or prosecute any alcohol or drug abuse patient.[facility] HospitalIn the event this information is protected by the Federal Confidentiality of Alcohol and Drug Abuse Patient Records regulations: The Federal rules restrict any use of the information to criminally investigate or prosecute any alcohol or drug abuse patient.[facility] HospitalIn the event this information is protected by the Federal Confidentiality of Alcohol and Drug Abuse Patient Records regulations: The Federal rules restrict any use of the information to criminally investigate or prosecute any alcohol or drug abuse patient.[facility] HospitalIn the event this information is protected by the Federal Confidentiality of Alcohol and Drug Abuse Patient Records regulations: The Federal rules restrict any use of the information to criminally investigate or prosecute any alcohol or drug abuse patient.[facility] HospitalIn the event this information is protected by the Federal Confidentiality of Alcohol and Drug Abuse Patient Records regulations: The Federal rules restrict any use of the information to criminally investigate or prosecute any alcohol or drug abuse patient.[facility] HospitalIn the event this information is protected by the Federal Confidentiality of Alcohol and Drug Abuse Patient Records regulations: The Federal rules restrict any use of the information to criminally investigate or prosecute any alcohol or drug abuse patient.[facility] HospitalIn the event this information is protected by the Federal Confidentiality of Alcohol and Drug Abuse Patient Records regulations: The Federal rules restrict any use of the information to criminally investigate or prosecute any alcohol or drug abuse patient.[facility] HospitalIn the event this information is protected by the Federal Confidentiality of Alcohol and Drug Abuse Patient Records regulations: The Federal rules restrict any use of the information to criminally investigate or prosecute any alcohol or drug abuse patient.[facility] HospitalIn the event this information is protected by the Federal Confidentiality of Alcohol and Drug Abuse Patient Records regulations: The Federal rules restrict any use of the information to criminally investigate or prosecute any alcohol or drug abuse patient.[facility] HospitalIn the event this information is protected by the Federal Confidentiality of Alcohol and Drug Abuse Patient Records regulations: The Federal rules restrict any use of the information to criminally investigate or prosecute any alcohol or drug abuse patient.[facility] HospitalIn the event this information is protected by the Federal Confidentiality of Alcohol and Drug Abuse Patient Records regulations: The Federal rules restrict any use of the information to criminally investigate or prosecute any alcohol or drug abuse patient.[facility] HospitalIn the event this information is protected by the Federal Confidentiality of Alcohol and Drug Abuse Patient Records regulations: The Federal rules restrict any use of the information to criminally investigate or prosecute any alcohol or drug abuse patient.[facility] HospitalIn the event this information is protected by the Federal Confidentiality of Alcohol and Drug Abuse Patient Records regulations: The Federal rules restrict any use of the information to criminally investigate or prosecute any alcohol or drug abuse patient.[facility] HospitalIn the event this information is protected by the Federal Confidentiality of Alcohol and Drug Abuse Patient Records regulations: The Federal rules restrict any use of the information to criminally investigate or prosecute any alcohol or drug abuse patient.[facility] HospitalIn the event this information is protected by the Federal Confidentiality of Alcohol and Drug Abuse Patient Records regulations: The Federal rules restrict any use of the information to criminally investigate or prosecute any alcohol or drug abuse patient.[facility] HospitalIn the event this information is protected by the Federal Confidentiality of Alcohol and Drug Abuse Patient Records regulations: The Federal rules restrict any use of the information to criminally investigate or prosecute any alcohol or drug abuse patient.[facility] HospitalIn the event this information is protected by the Federal Confidentiality of Alcohol and Drug Abuse Patient Records regulations: The Federal rules restrict any use of the information to criminally investigate or prosecute any alcohol or drug abuse patient.[facility] HospitalIn the event this information is protected by the Federal Confidentiality of Alcohol and Drug Abuse Patient Records regulations: The Federal rules restrict any use of the information to criminally investigate or prosecute any alcohol or drug abuse patient.[facility] HospitalIn the event this information is protected by the Federal Confidentiality of Alcohol and Drug Abuse Patient Records regulations: The Federal rules restrict any use of the information to criminally investigate or prosecute any alcohol or drug abuse patient.[facility] HospitalIn the event this information is protected by the Federal Confidentiality of Alcohol and Drug Abuse Patient Records regulations: The Federal rules restrict any use of the information to criminally investigate or prosecute any alcohol or drug abuse patient.[facility] HospitalIn the event this information is protected by the Federal Confidentiality of Alcohol and Drug Abuse Patient Records regulations: The Federal rules restrict any use of the information to criminally investigate or prosecute any alcohol or drug abuse patient.[facility] HospitalIn the event this information is protected by the Federal Confidentiality of Alcohol and Drug Abuse Patient Records regulations: The Federal rules restrict any use of the information to criminally investigate or prosecute any alcohol or drug abuse patient.[facility] HospitalIn the event this information is protected by the Federal Confidentiality of Alcohol and Drug Abuse Patient Records regulations: The Federal rules restrict any use of the information to criminally investigate or prosecute any alcohol or drug abuse patient.[facility] HospitalIn the event this information is protected by the Federal Confidentiality of Alcohol and Drug Abuse Patient Records regulations: The Federal rules restrict any use of the information to criminally investigate or prosecute any alcohol or drug abuse patient.[facility] HospitalIn the event this information is protected by the Federal Confidentiality of Alcohol and Drug Abuse Patient Records regulations: The Federal rules restrict any use of the information to criminally investigate or prosecute any alcohol or drug abuse patient.[facility] HospitalIn the event this information is protected by the Federal Confidentiality of Alcohol and Drug Abuse Patient Records regulations: The Federal rules restrict any use of the information to criminally investigate or prosecute any alcohol or drug abuse patient.[facility] HospitalIn the event this information is protected by the Federal Confidentiality of Alcohol and Drug Abuse Patient Records regulations: The Federal rules restrict any use of the information to criminally investigate or prosecute any alcohol or drug abuse patient.[facility] HospitalIn the event this information is protected by the Federal Confidentiality of Alcohol and Drug Abuse Patient Records regulations: The Federal rules restrict any use of the information to criminally investigate or prosecute any alcohol or drug abuse patient.[facility] HospitalIn the event this information is protected by the Federal Confidentiality of Alcohol and Drug Abuse Patient Records regulations: The Federal rules restrict any use of the information to criminally investigate or prosecute any alcohol or drug abuse patient.[facility]In the event this information is protected by the Federal Confidentiality of Alcohol and Drug Abuse Patient Records regulations: The Federal rules restrict any use of the information to criminally investigate or prosecute any alcohol or drug abuse patient.[facility] HospitalIn the event this information is protected by the Federal Confidentiality of Alcohol and Drug Abuse Patient Records regulations: The Federal rules restrict any use of the information to criminally investigate or prosecute any alcohol or drug abuse patient.[facility] HospitalIn the event this information is protected by the Federal Confidentiality of Alcohol and Drug Abuse Patient Records regulations: The Federal rules restrict any use of the information to criminally investigate or prosecute any alcohol or drug abuse patient.[facility] HospitalIn the event this information is protected by the Federal Confidentiality of Alcohol and Drug Abuse Patient Records regulations: The Federal rules restrict any use of the information to criminally investigate or prosecute any alcohol or drug abuse patient.[facility] HospitalIn the event this information is protected by the Federal Confidentiality of Alcohol and Drug Abuse Patient Records regulations: The Federal rules restrict any use of the information to criminally investigate or prosecute any alcohol or drug abuse patient.[facility] HospitalIn the event this information is protected by the Federal Confidentiality of Alcohol and Drug Abuse Patient Records regulations: The Federal rules restrict any use of the information to criminally investigate or prosecute any alcohol or drug abuse patient.[facility] HospitalIn the event this information is protected by the Federal Confidentiality of Alcohol and Drug Abuse Patient Records regulations: The Federal rules restrict any use of the information to criminally investigate or prosecute any alcohol or drug abuse patient.[facility] HospitalIn the event this information is protected by the Federal Confidentiality of Alcohol and Drug Abuse Patient Records regulations: The Federal rules restrict any use of the information to criminally investigate or prosecute any alcohol or drug abuse patient.[facility] HospitalIn the event this information is protected by the Federal Confidentiality of Alcohol and Drug Abuse Patient Records regulations: The Federal rules restrict any use of the information to criminally investigate or prosecute any alcohol or drug abuse patient.[facility] HospitalIn the event this information is protected by the Federal Confidentiality of Alcohol and Drug Abuse Patient Records regulations: The Federal rules restrict any use of the information to criminally investigate or prosecute any alcohol or drug abuse patient.[facility] HospitalIn the event this information is protected by the Federal Confidentiality of Alcohol and Drug Abuse Patient Records regulations: The Federal rules restrict any use of the information to criminally investigate or prosecute any alcohol or drug abuse patient.[facility] HospitalIn the event this information is protected by the Federal Confidentiality of Alcohol and Drug Abuse Patient Records regulations: The Federal rules restrict any use of the information to criminally investigate or prosecute any alcohol or drug abuse patient.[facility] HospitalIn the event this information is protected by the Federal Confidentiality of Alcohol and Drug Abuse Patient Records regulations: The Federal rules restrict any use of the information to criminally investigate or prosecute any alcohol or drug abuse patient.[facility] HospitalIn the event this information is protected by the Federal Confidentiality of Alcohol and Drug Abuse Patient Records regulations: The Federal rules restrict any use of the information to criminally investigate or prosecute any alcohol or drug abuse patient.[facility] HospitalIn the event this information is protected by the Federal Confidentiality of Alcohol and Drug Abuse Patient Records regulations: The Federal rules restrict any use of the information to criminally investigate or prosecute any alcohol or drug abuse patient.[facility] HospitalIn the event this information is protected by the Federal Confidentiality of Alcohol and Drug Abuse Patient Records regulations: The Federal rules restrict any use of the information to criminally investigate or prosecute any alcohol or drug abuse patient.[facility] HospitalIn the event this information is protected by the Federal Confidentiality of Alcohol and Drug Abuse Patient Records regulations: The Federal rules restrict any use of the information to criminally investigate or prosecute any alcohol or drug abuse patient.[facility] HospitalIn the event this information is protected by the Federal Confidentiality of Alcohol and Drug Abuse Patient Records regulations: The Federal rules restrict any use of the information to criminally investigate or prosecute any alcohol or drug abuse patient.[facility] HospitalIn the event this information is protected by the Federal Confidentiality of Alcohol and Drug Abuse Patient Records regulations: The Federal rules restrict any use of the information to criminally investigate or prosecute any alcohol or drug abuse patient.[facility] HospitalIn the event this information is protected by the Federal Confidentiality of Alcohol and Drug Abuse Patient Records regulations: The Federal rules restrict any use of the information to criminally investigate or prosecute any alcohol or drug abuse patient.[facility] HospitalIn the event this information is protected by the Federal Confidentiality of Alcohol and Drug Abuse Patient Records regulations: The Federal rules restrict any use of the information to criminally investigate or prosecute any alcohol or drug abuse patient.[facility] HospitalIn the event this information is protected by the Federal Confidentiality of Alcohol and Drug Abuse Patient Records regulations: The Federal rules restrict any use of the information to criminally investigate or prosecute any alcohol or drug abuse patient.[facility] HospitalIn the event this information is protected by the Federal Confidentiality of Alcohol and Drug Abuse Patient Records regulations: The Federal rules restrict any use of the information to criminally investigate or prosecute any alcohol or drug abuse patient.[facility] HospitalIn the event this information is protected by the Federal Confidentiality of Alcohol and Drug Abuse Patient Records regulations: The Federal rules restrict any use of the information to criminally investigate or prosecute any alcohol or drug abuse patient.[facility] HospitalIn the event this information is protected by the Federal Confidentiality of Alcohol and Drug Abuse Patient Records regulations: The Federal rules restrict any use of the information to criminally investigate or prosecute any alcohol or drug abuse patient.[facility] HospitalIn the event this information is protected by the Federal Confidentiality of Alcohol and Drug Abuse Patient Records regulations: The Federal rules restrict any use of the information to criminally investigate or prosecute any alcohol or drug abuse patient.[facility] HospitalIn the event this information is protected by the Federal Confidentiality of Alcohol and Drug Abuse Patient Records regulations: The Federal rules restrict any use of the information to criminally investigate or prosecute any alcohol or drug abuse patient.[facility] HospitalIn the event this information is protected by the Federal Confidentiality of Alcohol and Drug Abuse Patient Records regulations: The Federal rules restrict any use of the information to criminally investigate or prosecute any alcohol or drug abuse patient.[facility] HospitalIn the event this information is protected by the Federal Confidentiality of Alcohol and Drug Abuse Patient Records regulations: The Federal rules restrict any use of the information to criminally investigate or prosecute any alcohol or drug abuse patient.[facility] HospitalIn the event this information is protected by the Federal Confidentiality of Alcohol and Drug Abuse Patient Records regulations: The Federal rules restrict any use of the information to criminally investigate or prosecute any alcohol or drug abuse patient.[facility] HospitalIn the event this information is protected by the Federal Confidentiality of Alcohol and Drug Abuse Patient Records regulations: The Federal rules restrict any use of the information to criminally investigate or prosecute any alcohol or drug abuse patient.[facility] HospitalIn the event this information is protected by the Federal Confidentiality of Alcohol and Drug Abuse Patient Records regulations: The Federal rules restrict any use of the information to criminally investigate or prosecute any alcohol or drug abuse patient.[facility] HospitalIn the event this information is protected by the Federal Confidentiality of Alcohol and Drug Abuse Patient Records regulations: The Federal rules restrict any use of the information to criminally investigate or prosecute any alcohol or drug abuse patient.[facility] HospitalIn the event this information is protected by the Federal Confidentiality of Alcohol and Drug Abuse Patient Records regulations: The Federal rules restrict any use of the information to criminally investigate or prosecute any alcohol or drug abuse patient.[facility] HospitalIn the event this information is protected by the Federal Confidentiality of Alcohol and Drug Abuse Patient Records regulations: The Federal rules restrict any use of the information to criminally investigate or prosecute any alcohol or drug abuse patient.[facility] HospitalIn the event this information is protected by the Federal Confidentiality of Alcohol and Drug Abuse Patient Records regulations: The Federal rules restrict any use of the information to criminally investigate or prosecute any alcohol or drug abuse patient.[facility] HospitalIn the event this information is protected by the Federal Confidentiality of Alcohol and Drug Abuse Patient Records regulations: The Federal rules restrict any use of the information to criminally investigate or prosecute any alcohol or drug abuse patient.[facility] HospitalIn the event this information is protected by the Federal Confidentiality of Alcohol and Drug Abuse Patient Records regulations: The Federal rules restrict any use of the information to criminally investigate or prosecute any alcohol or drug abuse patient.[facility] HospitalIn the event this information is protected by the Federal Confidentiality of Alcohol and Drug Abuse Patient Records regulations: The Federal rules restrict any use of the information to criminally investigate or prosecute any alcohol or drug abuse patient.[facility] HospitalIn the event this information is protected by the Federal Confidentiality of Alcohol and Drug Abuse Patient Records regulations: The Federal rules restrict any use of the information to criminally investigate or prosecute any alcohol or drug abuse patient.[facility] HospitalIn the event this information is protected by the Federal Confidentiality of Alcohol and Drug Abuse Patient Records regulations: The Federal rules restrict any use of the information to criminally investigate or prosecute any alcohol or drug abuse patient.[facility] HospitalIn the event this information is protected by the Federal Confidentiality of Alcohol and Drug Abuse Patient Records regulations: The Federal rules restrict any use of the information to criminally investigate or prosecute any alcohol or drug abuse patient.[facility] HospitalIn the event this information is protected by the Federal Confidentiality of Alcohol and Drug Abuse Patient Records regulations: The Federal rules restrict any use of the information to criminally investigate or prosecute any alcohol or drug abuse patient.[facility] HospitalIn the event this information is protected by the Federal Confidentiality of Alcohol and Drug Abuse Patient Records regulations: The Federal rules restrict any use of the information to criminally investigate or prosecute any alcohol or drug abuse patient.[facility] HospitalIn the event this information is protected by the Federal Confidentiality of Alcohol and Drug Abuse Patient Records regulations: The Federal rules restrict any use of the information to criminally investigate or prosecute any alcohol or drug abuse patient.[facility] HospitalIn the event this information is protected by the Federal Confidentiality of Alcohol and Drug Abuse Patient Records regulations: The Federal rules restrict any use of the information to criminally investigate or prosecute any alcohol or drug abuse patient.[facility] HospitalIn the event this information is protected by the Federal Confidentiality of Alcohol and Drug Abuse Patient Records regulations: The Federal rules restrict any use of the information to criminally investigate or prosecute any alcohol or drug abuse patient.[facility] HospitalIn the event this information is protected by the Federal Confidentiality of Alcohol and Drug Abuse Patient Records regulations: The Federal rules restrict any use of the information to criminally investigate or prosecute any alcohol or drug abuse patient.[facility] HospitalIn the event this information is protected by the Federal Confidentiality of Alcohol and Drug Abuse Patient Records regulations: The Federal rules restrict any use of the information to criminally investigate or prosecute any alcohol or drug abuse patient.[facility] HospitalIn the event this information is protected by the Federal Confidentiality of Alcohol and Drug Abuse Patient Records regulations: The Federal rules restrict any use of the information to criminally investigate or prosecute any alcohol or drug abuse patient.[facility] the event this information is protected by the Federal Confidentiality of Alcohol and Drug Abuse Patient Records regulations: The Federal rules restrict any use of the information to criminally investigate or prosecute any alcohol or drug abuse patient.[facility] HospitalIn the event this information is protected by the Federal Confidentiality of Alcohol and Drug Abuse Patient Records regulations: The Federal rules restrict any use of the information to criminally investigate or prosecute any alcohol or drug abuse patient.[facility] HospitalIn the event this information is protected by the Federal Confidentiality of Alcohol and Drug Abuse Patient Records regulations: The Federal rules restrict any use of the information to criminally investigate or prosecute any alcohol or drug abuse patient.[facility] HospitalIn the event this information is protected by the Federal Confidentiality of Alcohol and Drug Abuse Patient Records regulations: The Federal rules restrict any use of the information to criminally investigate or prosecute any alcohol or drug abuse patient.[facility] HospitalIn the event this information is protected by the Federal Confidentiality of Alcohol and Drug Abuse Patient Records regulations: The Federal rules restrict any use of the information to criminally investigate or prosecute any alcohol or drug abuse patient.[facility] HospitalIn the event this information is protected by the Federal Confidentiality of Alcohol and Drug Abuse Patient Records regulations: The Federal rules restrict any use of the information to criminally investigate or prosecute any alcohol or drug abuse patient.[facility] HospitalIn the event this information is protected by the Federal Confidentiality of Alcohol and Drug Abuse Patient Records regulations: The Federal rules restrict any use of the information to criminally investigate or prosecute any alcohol or drug abuse patient.[facility] HospitalIn the event this information is protected by the Federal Confidentiality of Alcohol and Drug Abuse Patient Records regulations: The Federal rules restrict any use of the information to criminally investigate or prosecute any alcohol or drug abuse patient.[facility] HospitalIn the event this information is protected by the Federal Confidentiality of Alcohol and Drug Abuse Patient Records regulations: The Federal rules restrict any use of the information to criminally investigate or prosecute any alcohol or drug abuse patient.[facility] HospitalIn the event this information is protected by the Federal Confidentiality of Alcohol and Drug Abuse Patient Records regulations: The Federal rules restrict any use of the information to criminally investigate or prosecute any alcohol or drug abuse patient.[facility] HospitalIn the event this information is protected by the Federal Confidentiality of Alcohol and Drug Abuse Patient Records regulations: The Federal rules restrict any use of the information to criminally investigate or prosecute any alcohol or drug abuse patient.[facility] HospitalIn the event this information is protected by the Federal Confidentiality of Alcohol and Drug Abuse Patient Records regulations: The Federal rules restrict any use of the information to criminally investigate or prosecute any alcohol or drug abuse patient.[facility] HospitalIn the event this information is protected by the Federal Confidentiality of Alcohol and Drug Abuse Patient Records regulations: The Federal rules restrict any use of the information to criminally investigate or prosecute any alcohol or drug abuse patient.[facility] HospitalIn the event this information is protected by the Federal Confidentiality of Alcohol and Drug Abuse Patient Records regulations: The Federal rules restrict any use of the information to criminally investigate or prosecute any alcohol or drug abuse patient.[facility] HospitalIn the event this information is protected by the Federal Confidentiality of Alcohol and Drug Abuse Patient Records regulations: The Federal rules restrict any use of the information to criminally investigate or prosecute any alcohol or drug abuse patient.[facility] HospitalIn the event this information is protected by the Federal Confidentiality of Alcohol and Drug Abuse Patient Records regulations: The Federal rules restrict any use of the information to criminally investigate or prosecute any alcohol or drug abuse patient.[facility] HospitalIn the event this information is protected by the Federal Confidentiality of Alcohol and Drug Abuse Patient Records regulations: The Federal rules restrict any use of the information to criminally investigate or prosecute any alcohol or drug abuse patient.[facility] HospitalIn the event this information is protected by the Federal Confidentiality of Alcohol and Drug Abuse Patient Records regulations: The Federal rules restrict any use of the information to criminally investigate or prosecute any alcohol or drug abuse patient.[facility] HospitalIn the event this information is protected by the Federal Confidentiality of Alcohol and Drug Abuse Patient Records regulations: The Federal rules restrict any use of the information to criminally investigate or prosecute any alcohol or drug abuse patient.[facility] HospitalIn the event this information is protected by the Federal Confidentiality of Alcohol and Drug Abuse Patient Records regulations: The Federal rules restrict any use of the information to criminally investigate or prosecute any alcohol or drug abuse patient.[facility] HospitalIn the event this information is protected by the Federal Confidentiality of Alcohol and Drug Abuse Patient Records regulations: The Federal rules restrict any use of the information to criminally investigate or prosecute any alcohol or drug abuse patient.[facility] HospitalIn the event this information is protected by the Federal Confidentiality of Alcohol and Drug Abuse Patient Records regulations: The Federal rules restrict any use of the information to criminally investigate or prosecute any alcohol or drug abuse patient.[facility] HospitalIn the event this information is protected by the Federal Confidentiality of Alcohol and Drug Abuse Patient Records regulations: The Federal rules restrict any use of the information to criminally investigate or prosecute any alcohol or drug abuse patient.[facility] HospitalIn the event this information is protected by the Federal Confidentiality of Alcohol and Drug Abuse Patient Records regulations: The Federal rules restrict any use of the information to criminally investigate or prosecute any alcohol or drug abuse patient.[facility] HospitalIn the event this information is protected by the Federal Confidentiality of Alcohol and Drug Abuse Patient Records regulations: The Federal rules restrict any use of the information to criminally investigate or prosecute any alcohol or drug abuse patient.[facility] HospitalIn the event this information is protected by the Federal Confidentiality of Alcohol and Drug Abuse Patient Records regulations: The Federal rules restrict any use of the information to criminally investigate or prosecute any alcohol or drug abuse patient.[facility] HospitalIn the event this information is protected by the Federal Confidentiality of Alcohol and Drug Abuse Patient Records regulations: The Federal rules restrict any use of the information to criminally investigate or prosecute any alcohol or drug abuse patient.[facility] HospitalIn the event this information is protected by the Federal Confidentiality of Alcohol and Drug Abuse Patient Records regulations: The Federal rules restrict any use of the information to criminally investigate or prosecute any alcohol or drug abuse patient.[facility] HospitalIn the event this information is protected by the Federal Confidentiality of Alcohol and Drug Abuse Patient Records regulations: The Federal rules restrict any use of the information to criminally investigate or prosecute any alcohol or drug abuse patient.[facility] HospitalIn the event this information is protected by the Federal Confidentiality of Alcohol and Drug Abuse Patient Records regulations: The Federal rules restrict any use of the information to criminally investigate or prosecute any alcohol or drug abuse patient.[facility] HospitalIn the event this information is protected by the Federal Confidentiality of Alcohol and Drug Abuse Patient Records regulations: The Federal rules restrict any use of the information to criminally investigate or prosecute any alcohol or drug abuse patient.[facility] HospitalIn the event this information is protected by the Federal Confidentiality of Alcohol and Drug Abuse Patient Records regulations: The Federal rules restrict any use of the information to criminally investigate or prosecute any alcohol or drug abuse patient.[facility] HospitalIn the event this information is protected by the Federal Confidentiality of Alcohol and Drug Abuse Patient Records regulations: The Federal rules restrict any use of the information to criminally investigate or prosecute any alcohol or drug abuse patient.[facility] HospitalIn the event this information is protected by the Federal Confidentiality of Alcohol and Drug Abuse Patient Records regulations: The Federal rules restrict any use of the information to criminally investigate or prosecute any alcohol or drug abuse patient.[facility] HospitalIn the event this information is protected by the Federal Confidentiality of Alcohol and Drug Abuse Patient Records regulations: The Federal rules restrict any use of the information to criminally investigate or prosecute any alcohol or drug abuse patient.[facility] HospitalIn the event this information is protected by the Federal Confidentiality of Alcohol and Drug Abuse Patient Records regulations: The Federal rules restrict any use of the information to criminally investigate or prosecute any alcohol or drug abuse patient.[facility] HospitalIn the event this information is protected by the Federal Confidentiality of Alcohol and Drug Abuse Patient Records regulations: The Federal rules restrict any use of the information to criminally investigate or prosecute any alcohol or drug abuse patient.[facility] HospitalIn the event this information is protected by the Federal Confidentiality of Alcohol and Drug Abuse Patient Records regulations: The Federal rules restrict any use of the information to criminally investigate or prosecute any alcohol or drug abuse patient.[facility] HospitalIn the event this information is protected by the Federal Confidentiality of Alcohol and Drug Abuse Patient Records regulations: The Federal rules restrict any use of the information to criminally investigate or prosecute any alcohol or drug abuse patient.[facility] HospitalIn the event this information is protected by the Federal Confidentiality of Alcohol and Drug Abuse Patient Records regulations: The Federal rules restrict any use of the information to criminally investigate or prosecute any alcohol or drug abuse patient.[facility] HospitalIn the event this information is protected by the Federal Confidentiality of Alcohol and Drug Abuse Patient Records regulations: The Federal rules restrict any use of the information to criminally investigate or prosecute any alcohol or drug abuse patient.[facility] HospitalIn the event this information is protected by the Federal Confidentiality of Alcohol and Drug Abuse Patient Records regulations: The Federal rules restrict any use of the information to criminally investigate or prosecute any alcohol or drug abuse patient.[facility] HospitalIn the event this information is protected by the Federal Confidentiality of Alcohol and Drug Abuse Patient Records regulations: The Federal rules restrict any use of the information to criminally investigate or prosecute any alcohol or drug abuse patient.[facility] HospitalIn the event this information is protected by the Federal Confidentiality of Alcohol and Drug Abuse Patient Records regulations: The Federal rules restrict any use of the information to criminally investigate or prosecute any alcohol or drug abuse patient.[facility] HospitalIn the event this information is protected by the Federal Confidentiality of Alcohol and Drug Abuse Patient Records regulations: The Federal rules restrict any use of the information to criminally investigate or prosecute any alcohol or drug abuse patient.[facility] HospitalIn the event this information is protected by the Federal Confidentiality of Alcohol and Drug Abuse Patient Records regulations: The Federal rules restrict any use of the information to criminally investigate or prosecute any alcohol or drug abuse patient.[facility] HospitalIn the event this information is protected by the Federal Confidentiality of Alcohol and Drug Abuse Patient Records regulations: The Federal rules restrict any use of the information to criminally investigate or prosecute any alcohol or drug abuse patient.[facility] HospitalIn the event this information is protected by the Federal Confidentiality of Alcohol and Drug Abuse Patient Records regulations: The Federal rules restrict any use of the information to criminally investigate or prosecute any alcohol or drug abuse patient.[facility] HospitalIn the event this information is protected by the Federal Confidentiality of Alcohol and Drug Abuse Patient Records regulations: The Federal rules restrict any use of the information to criminally investigate or prosecute any alcohol or drug abuse patient.[facility] HospitalIn the event this information is protected by the Federal Confidentiality of Alcohol and Drug Abuse Patient Records regulations: The Federal rules restrict any use of the information to criminally investigate or prosecute any alcohol or drug abuse patient.[facility]In the event this information is protected by the Federal Confidentiality of Alcohol and Drug Abuse Patient Records regulations: The Federal rules restrict any use of the information to criminally investigate or prosecute any alcohol or drug abuse patient.[facility] HospitalIn the event this information is protected by the Federal Confidentiality of Alcohol and Drug Abuse Patient Records regulations: The Federal rules restrict any use of the information to criminally investigate or prosecute any alcohol or drug abuse patient.[facility] HospitalIn the event this information is protected by the Federal Confidentiality of Alcohol and Drug Abuse Patient Records regulations: The Federal rules restrict any use of the information to criminally investigate or prosecute any alcohol or drug abuse patient.[facility] HospitalIn the event this information is protected by the Federal Confidentiality of Alcohol and Drug Abuse Patient Records regulations: The Federal rules restrict any use of the information to criminally investigate or prosecute any alcohol or drug abuse patient.[facility] HospitalIn the event this information is protected by the Federal Confidentiality of Alcohol and Drug Abuse Patient Records regulations: The Federal rules restrict any use of the information to criminally investigate or prosecute any alcohol or drug abuse patient.[facility] HospitalIn the event this information is protected by the Federal Confidentiality of Alcohol and Drug Abuse Patient Records regulations: The Federal rules restrict any use of the information to criminally investigate or prosecute any alcohol or drug abuse patient.[facility] HospitalIn the event this information is protected by the Federal Confidentiality of Alcohol and Drug Abuse Patient Records regulations: The Federal rules restrict any use of the information to criminally investigate or prosecute any alcohol or drug abuse patient.[facility] HospitalIn the event this information is protected by the Federal Confidentiality of Alcohol and Drug Abuse Patient Records regulations: The Federal rules restrict any use of the information to criminally investigate or prosecute any alcohol or drug abuse patient.[facility] HospitalIn the event this information is protected by the Federal Confidentiality of Alcohol and Drug Abuse Patient Records regulations: The Federal rules restrict any use of the information to criminally investigate or prosecute any alcohol or drug abuse patient.[facility] HospitalIn the event this information is protected by the Federal Confidentiality of Alcohol and Drug Abuse Patient Records regulations: The Federal rules restrict any use of the information to criminally investigate or prosecute any alcohol or drug abuse patient.[facility] HospitalIn the event this information is protected by the Federal Confidentiality of Alcohol and Drug Abuse Patient Records regulations: The Federal rules restrict any use of the information to criminally investigate or prosecute any alcohol or drug abuse patient.[facility] HospitalIn the event this information is protected by the Federal Confidentiality of Alcohol and Drug Abuse Patient Records regulations: The Federal rules restrict any use of the information to criminally investigate or prosecute any alcohol or drug abuse patient.[facility] HospitalIn the event this information is protected by the Federal Confidentiality of Alcohol and Drug Abuse Patient Records regulations: The Federal rules restrict any use of the information to criminally investigate or prosecute any alcohol or drug abuse patient.[facility] HospitalIn the event this information is protected by the Federal Confidentiality of Alcohol and Drug Abuse Patient Records regulations: The Federal rules restrict any use of the information to criminally investigate or prosecute any alcohol or drug abuse patient.[facility] HospitalIn the event this information is protected by the Federal Confidentiality of Alcohol and Drug Abuse Patient Records regulations: The Federal rules restrict any use of the information to criminally investigate or prosecute any alcohol or drug abuse patient.[facility] HospitalIn the event this information is protected by the Federal Confidentiality of Alcohol and Drug Abuse Patient Records regulations: The Federal rules restrict any use of the information to criminally investigate or prosecute any alcohol or drug abuse patient.[facility] HospitalIn the event this information is protected by the Federal Confidentiality of Alcohol and Drug Abuse Patient Records regulations: The Federal rules restrict any use of the information to criminally investigate or prosecute any alcohol or drug abuse patient.[facility] HospitalIn the event this information is protected by the Federal Confidentiality of Alcohol and Drug Abuse Patient Records regulations: The Federal rules restrict any use of the information to criminally investigate or prosecute any alcohol or drug abuse patient.[facility] HospitalIn the event this information is protected by the Federal Confidentiality of Alcohol and Drug Abuse Patient Records regulations: The Federal rules restrict any use of the information to criminally investigate or prosecute any alcohol or drug abuse patient.[facility] HospitalIn the event this information is protected by the Federal Confidentiality of Alcohol and Drug Abuse Patient Records regulations: The Federal rules restrict any use of the information to criminally investigate or prosecute any alcohol or drug abuse patient.[facility] HospitalIn the event this information is protected by the Federal Confidentiality of Alcohol and Drug Abuse Patient Records regulations: The Federal rules restrict any use of the information to criminally investigate or prosecute any alcohol or drug abuse patient.[facility] HospitalIn the event this information is protected by the Federal Confidentiality of Alcohol and Drug Abuse Patient Records regulations: The Federal rules restrict any use of the information to criminally investigate or prosecute any alcohol or drug abuse patient.[facility] HospitalIn the event this information is protected by the Federal Confidentiality of Alcohol and Drug Abuse Patient Records regulations: The Federal rules restrict any use of the information to criminally investigate or prosecute any alcohol or drug abuse patient.[facility] HospitalIn the event this information is protected by the Federal Confidentiality of Alcohol and Drug Abuse Patient Records regulations: The Federal rules restrict any use of the information to criminally investigate or prosecute any alcohol or drug abuse patient.[facility] HospitalIn the event this information is protected by the Federal Confidentiality of Alcohol and Drug Abuse Patient Records regulations: The Federal rules restrict any use of the information to criminally investigate or prosecute any alcohol or drug abuse patient.[facility] HospitalIn the event this information is protected by the Federal Confidentiality of Alcohol and Drug Abuse Patient Records regulations: The Federal rules restrict any use of the information to criminally investigate or prosecute any alcohol or drug abuse patient.[facility] Goals (unrecognized section and content) Goals may be documented in a n alternate section FOR RECORDS PERTAINING TO PATIENTS WHO ARE OR HAVE BEEN ENROLLED IN A CHEMICAL DEPENDENCY/SUBSTANCEABUSE PROGRAM, SOME INFORMATION MAY BE OMITTED. This clinical summary was aggregated from multiple sources. Caution should be exercised in using it in the provision of clinical care. This summary normalizes information from multiple sources, and as a consequence, information in this document may materially change the coding, format and clinical context of patient data. In addition, data may be omitted in some cases. CLINICAL DECISIONS SHOULD BE BASED ON THE PRIMARY CLINICAL RECORDS. [facility]. provides no warranty or guarantee of the accuracy or completeness of information in this document.
--- NOTE | 2025-03-27 12:21 | NEURO ---
NCS and/or EMG Patient Report Ordering Doctor: Kristal Desai DATE OF SERVICE: 03/27/25 Luisito presents with complaints of numbness and tingling in both hands. He has neck pain radiating into the upper limbs. Electrodiagnostic findings: The right median motor nerve demonstrates prolonged latency with borderline reduced in amplitude and reduced conduction velocity. Left median motor nerve demonstrates borderline prolonged distal latency with normal amplitude and reduced conduction velocity. Right ulnar motor nerve demonstrates normal distal latency with reduced amplitude. Left ulnar motor nerve demonstrates normal distal latency with reduced amplitude. Prolonged median ulnar F?waves. Prolonged median and ulnar sensory latencies are noted. Needle EMG testing was performed upper limbs. 1+ fibrillations noted in the flexor carpi ulnaris, triceps and lower cervical paraspinals bilaterally. Motor unit action potentials with normal amplitude and duration. Electrodiagnostic impression: This is an abnormal study in the upper limbs 1. 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 There is evidence of demyelination and axonal loss. This may be secondary to a larger peripheral polyneuropathy. A better assessment can be made upon completion of the lower extremity testing. 2. Electrodiagnostic evidence is suggestive for acute bilateral C7 radiculopathy. Consider correlation with cervical spine imaging. Multi Select Codes Neurology Neurology Interp Codes: 78473-76 Musc test done w/n test comp (interp) (2) and 75638-84 Nrv cndj test 9-10 studies (interp)
== END | disposition home or self-care (01) ==
LOC: PSN 06:55
PROVIDERS: PCP Nurse Practitioner Family; Referring Provider Internal Medicine Endocrinology, Diabetes & Metabolism; Visit Provider Internal Medicine Endocrinology, Diabetes & Metabolism
DX: R20.0 Anesthesia of skin (principal); E10.9 Type 1 diabetes mellitus without complications
CPT/HCPCS: 95886; 95911

== ENCOUNTER → 2025-04-02 | Outpatient (CLI) | payer MEDICAID, SELFPAY ==
--- OUTSIDE RECORDS SUMMARY | 2025-04-02 07:01 | XMS RPT_ITS | CCD ---
Author Organization [facility] Care Team Providers Care Product Scientist Name Role Phone TANIADIAZ Unavailable Unavailable ERIN MONK Unavailable Unavailable KAYLEIGH BRYAN Unavailable Unavailable LUIS F ANTHONY Unavailable Unavailable YADI THOMPSON Attending Unavailable *SELF, REFERRED Referring Unavailable UNKNOWN, PCP Primary Care Unavailable Beto Linares Primary Care Provider [phone] Daria Stephenson Primary Care Provider HANS FAGAN Referring Unavailable DARIA STEPHENSON Primary Care Unavailable LUZ MARIA PEREZ Admitting Unavailable LUZ MARIA PEREZ Attending Unavailable UNKNOWN, PHYSICIAN Referring Unavailable UNKNOWN, PHYSICIAN Primary Care Unavailable Giovanni Ellis CNP Primary Care Provider Noam Luevano MD Unavailable [phone] PHYSICIAN, NOT RECORDED Primary Care Physician Kacie Payne APRN, CNP Primary Care Provider Luz Maria Perez Unavailable Luz Maria Perez Unavailable Abhinav Garrett MD Unavailable Luz Maria Perez Unavailable Luz aMria Perez Unavailable Abhinav Garrett MD Unavailable Janusz Taveras Attending Unavailable Beto Linares Primary Care Unavailable Beto Linares Referring Unavailable PROVIDER, UNKNOWN Referring Unavailable Mateo Rojas Attending Unavailable Cara, Kacie Primary Care Unavailable Linares, Beto Primary Care Unavailable Linares, Beto Referring Unavailable Shagolden, Luz Maria Attending Unavailable PROVIDER, UNKNOWN Referring Unavailable Cara, Kacie Primary Care Unavailable Shagolden, Luz Maria Attending Unavailable PROVIDER, UNKNOWN Referring Unavailable Mateo Rojas Attending Unavailable Cara, Kacie Primary Care Unavailable Gerry FIELDS, Abhinav Vicki Unavailable Luz Maria Perez Unavailable Luz Maria Perez Carlin Unavailable Gerry FIELDS, Abhinav Vicki Unavailable Gerry FIELDS, Abhinav K Unavailable Jesse Ward DO Primary Care Provider Daria Stephenson MD Primary Care Provider Daily COVER OPERATOR.[facility] Sruthi Primary Care Provider PHYSICIAN, PATIENT UNSURE Primary Care Physician Unavailable Luz Maria Perez Unavailable Gerry FIELDS Abhinav Vicki Unavailable Daily COVER OPERATOR - Sruthi FOOTE Primary Care Provide r Luz Maria Perez MD Unavailable [phone] Luz Maria Perez MD Unavailable Daily [facility] Primary [facility] Provider [facility] COVER OPERATOR.Robyn FOOTE Primary Care Provider Daily [facility] Primary Care Pro vider SRUTHI AMBROSIO Primary Care Physician NIMESH FONSECA Admitting Unavail able LUZ MARIA DECKER Attending Unavailable SRUTHI AMBROSIO Primary Care Unavailab SEAN Mazariegos MD Attending Unavailable SRUTHI AMBROSIO Primary Care Unavailab MIQUEL Viera MD Attending Unavailable PHYSICIAN, NONE Primary Care Unavailable KING PORRAS MD Attending Unavailable ERNA FIELDS, ROSCOE A Primary Care Physician Roscoe Umanzor MD Unavailable Erna FIELDS, Edekaterina Primary Care Provider ERNA FIELDS, ROSCOE A Primary Care Unavailable CHRIS FIELDS, DR LUZ MARIA Wells Attending Unavailable CHRIS FIELDS, DR LUZ MARIA Wells Admitting Unavailable Luz Maria Perez MD Unavailable Erin Morris MD Unavailable Juana FIELDS, Edward G Unavailable ERNA, EDWARD Primary Care Provider Sil FIELDS, Dr. Hayes Attending Provider Sil FIELDS, Dr. Hayes Referring Provider Erna FIELDS, PhD, [facility] Primary Care Pro vider Temsic COVER OPERATOR.AMBULANCE ATTENDANT, Robyn Cohen Primary Care Provider Lloyd FIELDS, Kristal Unavailable Shereen FIELDS, Madison Espinoza Unavailable [phone] Freddy Mujica MD Child[place] Unavailable PROVIDER, UNKNOWN Referring [facility]available [facility] Primary Care Unavailable [facility] Primary Care Unavaila ble PROVIDER, UNKNOWN Referring Unavailable 13, Pharmacist Unavailable Luz Maria Perez MD Unavailable Erna FIELDS, PhD, [facility] Primary Care Pro vider Luz Maria Perez MD Unavailable Daily COVER OPERATOR.AMBULANCE ATTENDANT, Sruthi Fernandez Primary Care Pro vider Ghada Mejía DO Unavailable ERNA, EDWARD Attending Unavailable ERNA, EDWARD Primary Care Unavailable ROMAN FERNÁNDEZ MD Attending Unavailable ERNA, EDWARD Primary Care Unavailable AMANDA RUELAS DO Attending Unavailable ERNA, EDWARD Primary Care Unavailable ARLENE BARNTET DO Attending Unavailable ERNA, EDWARD Primary Care Unavailable LLOYD FIELDS, KRISTAL Attending Unavaila ble ERNA, EDWARD Primary Care Unavailable ERNA, EDWARD Primary Care Unavailable CHRIS FIELDS, DR LUZ MARIA Wells Attending Unavailable ERNA, EDWARD Attending Unavailable ERNA, EDWARD Primary Care Unavailable ERNA, EDWARD Attending Unavailable ERNA, EDWARD Primary Care Unavailable ERNA, EDWARD Primary Care Unavailable ERNA, EDWARD Attending Unavailable KRISTAL DESAI MD Attending Unavaila ble TEMSIC, MRS. CARLSON Primary Care Unavailable Gerry FIELDS, [facility] Primary Care Provider Temsic COVER OPERATOR.[facility], [facility] Primary Care Provider Shereen FIELDS, Madison Espinoza Unavailable Ina Cerrato MD Unavailable NONE, NONE Unavailable Unavailable Gerry FIELDS, [facility] Primary Care Provider Temsic COVER OPERATOR.[facility], [facility] Primary Care Provider Temsic COVER OPERATOR.[facility], [facility] Primary Care Provider VAMSHI BENSON Attending Unavailable [facility] Primary Care Unavailable Luis Carlos FIELDS, Dr. Zurita Attending Provider Care Physician, No Primary Primary Care Provider Unavailable Care Physician, No Primary Referring Provider Un available Dr. Nitin Irby MD Attending Provider ERIN MORRIS Attending Unavailable ERNA, EDWARD Primary Care Unavailable ERNA, EDWARD Primary Care Unavailable ERIN MORRIS Attending Unavailable SHAUB, LUZ MARIA Attending Unavailable ERNA, EDWARD Primary Care Unavailable Temsic COVER OPERATOR.[facility], Robyn Cohen Primary Care Provider Gerry FIELDS, [facility] Primary Care Provider Gerry FIELDS [facility] Primary Care Provider Nitin Irby Attending Unavailable Care Physician, No Primary Primary Care Unava ilable Care Physician, No Primary Referring Unava ilable Parminder Aldridge Attending Unavailable Care Physician, No Primary Primary Care Unava ilable MICLAT, JOSE Primary Care Unavailable Freddy Mujica Attending Unavailable Freddy Mujica Referring Unavailable MICLAT, JOSE Primary Care Unavailable Raghunathan, Kristal Na Attending Unavaila ble Raghunathan, Kristal Na Referring Unavaila ble Temsic, Robyn Primary Care Unavailable Raghunathan, Kristal Na Attending Unavaila ble Raghunathan, Kristal Na Referring Unavaila ble Temsic, Robyn Primary Care Unavailable Jose Antonio Girard Attending Unavailable Raghunathan, Kristal Na Consulting Unavaila ble Raghunathan, Kristal Na Referring Unavaila ble MICLAT, JOSE Primary Care Unavailable Basali, Huyman Attending Unavailable Basali, Freddy Referring Unavailable MICLAT, JOSE Primary Care Unavailable Basali, Freddy Attending Unavailable Basali, Huyman Referring Unavailable TEMSIC, ROBYN K Attending Unavailable TEMSIC, ROBYN K Primary Care Unavailable TEMSIC, ROBYN K Attending Unavailable TEMSIC, ROBYN K Primary Care Unavailable TEMSIC, ROBYN K Attending Unavailable TEMSIC, ROBYN K Primary Care Unavailable TEMSIC, ROBYN K Attending Unavailable RENAY GARRETT Primary Care Unavailable SOLTESZ, EDWARD G Referring Unavailable ERNA, EDWARD ALCAZAR Primary Care Unavaila ble TEMSIC, ROBYN K Primary Care Unavailable SOLTESZ, EDWARD G Referring Unavailable TEMSIC, ROBYN K Primary Care Unavailable SOLTESZ, EDWARD G Referring Unavailable TEMSIC, ROBYN K Primary Care Unavailable SOLTESZ, EDWARD G Admitting Unavailable SOLTESZ, EDWARD G Attending Unavailable SRUTHI AMBROSIO Primary Care Unavailable SOLTESZ, EDWARD G Referring Unavailable SRUTHI AMBROSIO Primary Care Unavailable SOLTESZ, EDWARD G Referring Unavailable CROW JOSEPH Attending Niecy UMANZOR, EDEKATERINA ALCAZAR Primary Care Unavaila ble SOLTESZ, EDWARD G Referring Unavailable SOLTESZ, EDWARD G Referring Unavailable ERNA, EDWARD ALCAZAR Primary Care Unavaila ble SOLTESZ, EDWARD G Referring Unavailable ERNA, EDWARD ALCAZAR Primary Care Unavaila ble SOLTESZ, EDWARD G Attending Unavailable SOLTESZ, EDWARD G Referring Unavailable ERNA, EDWARD ALCAZAR Primary Care Unavaila ble TIERA MACKENZIE Referring Unavailable ERNA, EDWARD ALCAZAR Primary Care Unavaila ble DELFINA CHANEY Attending Unavailable TEMSIC, ROBYN K Referring Unavailable TEMSIC, ROBYN K Primary Care Unavailable TEMSIC, ROBYN K Primary Care Unavailable TEMSIC, ROBYN K Primary Care Unavailable TEMSIC, ROBYN K Primary Care Unavailable TEMSIC, ROBYN K Primary Care Unavailable MARYSOL CARDOZA Attending Unavailable SOLTESZ, EDWARD G Referring Unavailable ERNA, EDWARD ALCAZAR Primary Care Unavaila ble ERNA, EDWARD ALCAZAR Primary Care Unavaila ble KHOT, JARED Attending Unavailable SOLTESZ, EDWARD G Referring Unavailable ERNA, EDWARD ALCAZAR Primary Care Unavaila ble ERNA, EDWARD ALCAZAR Primary Care Unavaila ble COOPER, MALICK G Attending Unavailable MALICK COOPER Admitting Unavailable TEMSIC, ROBYN K Primary Care Unavailable GRANTOT, JARED Attending Unavailable GRANTOT, JARED Admitting Unavailable DAILY, SRUTHI Primary Care Unavailable SOLTESZ, EDWARD G Attending Unavailable SOLTESZ, EDWARD G Referring Unavailable GARRETT RENAY Attending [facility] Unavailable REHANA AVILES Attending Unavailable DAILY, SRUTHI Primary Care Unavailable SOLTESZ, [...] EDWARD G Referring Unavailable TEMSIC, ROBYN K Referring Unavailable TEMSIC, ROBYN K Primary Care Unavailable TEMSIC, ROBYN K Primary Care Unavailable DAILY, SRUTHI Primary Care Unavailable SOLTESZ, EDWARD G Attending Unavailable DAILY SRUTHI Primary Care Unavailable SOLTESZ, EDWARD G Referring Unavailable JT KING Attending Niecy UMANZOR, EDWARD OMAR Primary Care Unavaila ble SOLTESZ, EDWARD G Referring Unavailable Allergies Allergy Classification Reported Allergen(s) Allergy Type Date of Onset Reaction(s) Facility Opioid Agonists (2 sources) HYDROmorphone Drug Allergy 9 Itching, Other: See Comments [facility] (2 sources) Acetaminophen / oxyCODONE Drug Allergy 9 Itching, Rash [place], [place] (3 sources) HYDROmorphone Drug Allergy 9 Itching [facility] [place] [place] (20 sources) HYDROmorphone; Translations: [hydromorphone] Drug Allergy 9 [facility] (20 sources) traMADol; Translations: [tramadol] Drug Allergy 2 Other: See Comments, Unknown [facility] (1 source) HYDROmorphone Drug Allergy 2 [facility] [place] [facility] (1 source) traMADol Drug Allergy 1 itching [facility] (1 source) HYDROmorphone Drug Allergy 5 [facility] (1 source) traMADol Drug Allergy 5 [facility] Medications Current Medications Medication Drug Class(es) [...] Start: 12-25-2018 take 2 tablets by mo uth every eight hours acetaminophen (TYLENOL) 500 MG tablet Take 2 tablets by mouth every 8 hours 120 tablet 0 12/25/2018 Active Comment on above: Take 1,000 mg by tere th every 6 hours as needed. Take 1.5 tablets by mouth every 6 hours for 2 days. 1,000 mg. [id number] 200 actuat albuterol 0.09 mg/actuat metered dose [...] wheezing, # 1 EA, 0 Refill(s), Pharmacy: [facility] #[id number], Acute bronchitis, 193, cm, 05/29/24 11:06:00 EST, [...] capsule (5 sources) Non-narcotic Antitussive Start: 05-25-2024 Tessalhussein Perles 100 mg oral capsule Dose : 100 mg = 1 cap(s), Oral, q8h, PRN as needed for cough, # 30 cap(s), 0 Refill(s), Pharmacy: [facility] #[id number], Cough, 193, cm, 05/23/24 9:11:00 EST, Height, [...] Comment on above: Take 1 capsule by [facility] three times daily as needed for Cough. celecoxib 200 mg oral capsule (4 sources) Nonsteroidal Anti-inflammatory Drug Start: take 1 capsule by mouth twice daily celecoxib (CELEBREX) 200 MG capsule Indications: Right hip pain Take 1 capsule by mouth two times a day. 60 capsule 1 01/06/2021 Active cephalexin 500 mg oral capsule (1 source) Cephalosporin Antibacterial Start: 019 End: 019 take 1 capsule by mouth four times [...] 10/12/2021 Active take 1 capsule by mo [facility] every week cholecalciferol, Vitamin D3, (VITAMIN D3) 1,250 mcg (50,000 unit) cap capsule Take 50,000 Units by mouth one time a week. Active Comment on above: Take 1 tablet by tere once daily. ciclopirox 7.7 mg/ml topical cream [...] once a day active Aga Puri AT [facility] Continuous Blood Gluc Sensor (DEXCOM G6 SENSOR) MISC (2 sources) Start: 01-20-2021 Continuous Blood Gluc Sensor (DEXCOM G6 SENSOR) MISC 1 each by Does not apply route every 10 days. 12 each 1 01/20/2021 Active Continuous Blood Gluc Sensor (FreeStyle Carl[place] 2 Sensor) misc (16 sources) Start: 09-21-2022 Continuous Blood Gluc Sensor (FreeStyle Carl[place] 2 Sensor) misc APPLY SENSOR TO BACK OF UPPER ARM,REMOVE [...] supply., # 3 EA, 11 Refill(s), Pharmacy: [id number], 193, cm, 04/16/24 15:08:00 EDT, Height, 106.8, kg, 04/16/24 15:08:00 EDT, Dosing Weight Start Date: 04/16/24 Status: Ordered Quantity: 3.0 Unit: EA Repeat number: 12 Start: 04-16-2024 Dexcom G6 Sens or See Instructions, Place one sensor to the abdomen every 10 days. Use reader or phone efe for daily blood sugar checks. 1 month supply., # 3 EA, 11 Refill(s), Pharmacy: [facility], 193, cm, 04/16/24 15:08:00 EDT, [...] supply., # 3 EA, 3 Refill(s), Pharmacy: [facility], 193, cm, 04/16/24 15:08:00 EDT, Height, 106.8, kg, 04/16/24 15:08:00 EDT, Dosing Weight Start Date: 04/16/24 Status: Ordered Quantity: 3.0 Unit: EA Repeat number: 4 Start: 04-16-2024 Dexcom G6 Gaytan smitter See Instructions, Place transmitter into each new sensor every 10 days. Transmitter is reusable for 90 days. 3 month supply., # 3 EA, 3 Refill(s), Pharmacy: [facility], 193, cm, 04/16/24 15:08:00 EDT, [...] supply., # 3 EA, 11 Refill(s), Pharmacy: [facility] #[id number], 193, cm, 05/29/24 11:06:00 EST, Height, 102.27, [...] supply., # 3 EA, 1 Refill(s), Pharmacy: [facility] #[id number], 193, cm, 01/05/24 4:08:00 EDT, Height, 94, [...] on above: Take 1 tablet by tere twice daily. Take 1 tablet by tere [...] once daily. Take 1 capsule by mo [facility] once daily. ergocalciferol 1.25 mg oral capsule (2 sources) Provitamin D2 Compound take 1 capsule by mouth every week ergocalciferol (Vitamin D2) 1.25 MG (10952 UT) capsule Take 1.25 mg by mouth [...] to increase absorption. active Caterina Larson AT [facility] fluticasone propionate 0.05 mg/actuat metered dose nasal spray (20 sources) Corticosteroid Start: 04-16-2024 End: 04-11-2025 take 50 ug nasal route once daily fluticasone proprionate NASAL 50 mcg/ spray 50 mcg Dose = 1 spray(s), Nostril, each, qDay, # 15.8 mL, 3 Refill(s), Pharmacy: [facility], 193, cm, 04/16/24 15:08:00 EDT, Height, kg, 04/16/24 15:08:00 EDT, Dosing Weight Start Date: 04/16/24 Stop Date: 04/11/25 Status: Ordered Quantity: 15.8 Unit: mL Repeat number: 4 Start: 07-22-2021 fluticasone (F lonase) 50 MCG/ACT nasal spray Administer 1 spray into affected nostril(s). 07/22/2021 Active Start: 07-22-2021 End: 12-20-2024 fluticasone (FLONASE) 50 mcg/actuation nasal spray Use 1 [place] in the nose once daily as needed. 07/22/2021 12/20/2024 Discontinued (Other) Start: 07-22-2021 take 1 dose nasal ro [place] once daily fluticasone proprionate NASAL 50 mcg/ spray Dose = 1 spray(s), Nostril, each, qDay Start Date: 07/22/21 Status: Ordered Start: 12-22-2020 Fluticasone pr opionate (FLONASE) 50 MCG/ACT nasal spray Indications: Middle ear effusion, bilateral 1 spray by Each Nare route daily. 16 g 12 12/22/2020 Active Comment on above: Use 1 [place] in the n ose once daily as [...] inhaler (1 source) Corticosteroid, beta2-Adrenergic Agonist Start: End: fluticasone-vilanter ol (BREO ELLIPTA) 200-25 mcg/dose inhaler [...] day as directed active Aga Puri AT [facility] hydrocortisone 10 mg/ml topical lotion (3 sources) Corticosteroid Start: 018 hydrocortisone 1 % lotion Indications: Dermatitis Apply topically 2 times daily. 1 Bottle 0 05/29/2018 Active hydrocortisone 10 mg/ml / neomycin 3.5 mg/ml / polymyxin b [id number] unt/ml otic suspension (6 sources) Aminoglycoside Antibacterial, Polymyxin-class Antibacterial, Corticosteroid Start: 021 [id number] ydrocortisone (CORTISPORIN) 3.5-23671-4 otic suspension Indications: Acute otitis externa of [...] 0 Refill(s), 07/15/24 4:22:00 PM EST, Pharmacy: [facility], 193, cm, 04/16/24 15:08:00 EDT, [...] pump, # 15 mL, 5 Refill(s), Pharmacy: [facility], 193, cm, 10/07/24 15:08:00 EDT, Height, kg, 04/16/24 15:08:00 EDT, Dosing Weight, 125, mL Start Date: 05/18/24 Stop Date: 11/09/25 Status: Ordered Quantity: 15.0 Unit: mL Repeat number: 6 Start: 04-16-2024 End: 04-11-2025 inject 125 [IU] by subcutaneous injection once daily at bedtime HumaLOG 100 units/mL injectable solution VIAL Sliding Scale, Subcutaneous, achs, 125 units daily via insulin pump, # 15 mL, 3 Refill(s), Pharmacy: [facility], 193, cm, 04/16/24 15:08:00 EDT, Height, kg, 04/16/24 15:08:00 EDT, Dosing Weight, 125, mL Start Date: 04/16/24 Stop Date: 04/11/25 Status: Ordered Start: 03-27-2024 inject 125 [IU] by subcutaneous injection once daily at bedtime HumaLOG 100 units/mL injectable solution VIAL Sliding Scale, Subcutaneous, achs, 125 units daily via insulin pump, # 30 mL, 3 Refill(s), Pharmacy: [facility], 193, cm, 01/05/24 4:08:00 EDT, [...] pump, # 30 mL, 3 Refill(s), Pharmacy: [facility], 193, cm, 08/10/21 12:32:00 EST, Height, kg, [...] Type 1 diabetes mellitus without complication (CMS/HCC) (HCC) Inject insulin continuous via Insulin Pump. [...] qDay, # 90 tab(s), 3 Refill(s), Pharmacy: [facility], 193, cm, 04/16/24 15:08:00 EDT, [...] Start: 12-17-2020 take 2 tablets by mo uth at bedtime melatonin 5 MG TABS TAKE [...] day(s), # 336 lozenge(s), 0 Refill(s), Pharmacy: [id number], Nicotine dependence, 193, cm, 07/17/24 9:57:00 EST, [...] 5, crtg (18 sources) Start: 3 End: 3 OMNIPOD 5 G6 INTRO KIT, GEN [...] Barrier Wipe) misc (16 sources) Start: 06-23-20 Ostomy Supplies (Skin Tac Adhesive Barrier Wipe) misc 1 each every 14 (fourteen) days. 50 each 3 06/23/2022 Active perflutren lipid microspheres 1.3 mL in NaCl (PF) 0.9% 10 mL injection (DEFINITY) (20 sources) Start: 01-30-20 End: 04-30-20 perflutren lipid microspheres 1.3 mL in NaCl (PF) 0.9% 10 mL injection (DEFINITY) phenazopyridine hydrochloride 200 mg delayed release oral tablet (2 sources) Start: 12-11-19 take 1 tablet by mouth three times [...] Active Start: 11-27-2020 take 1 capsule by [facility] once daily Tamsulosin HCl (FLOMAX) 0.4 MG [...] qHS, # 90 tab(s), 1 Refill(s), Pharmacy: [facility], 193, cm, 04/16/24 15:08:00 EDT, [...] once daily. inhale 1 puff by tere once daily as directed Vitamin C tablet (ascorbic acid (vitamin c)) (1 source) Vitamin D3 50 mcg (2000 intl units) oral capsule (1 source) Start: 2024 Vitamin D3 50 mcg (2000 intl units) oral capsule Dose : 50 mcg = 1 cap(s), Oral, qDay, # 90 cap(s), 3 Refill(s), Pharmacy: [facility] #[id number], 193, cm, 04/16/24 15:08:00 EDT, Height, kg, 04/16/24 15:08:00 EDT, Dosing Weight Start Date: 04/27/24 Status: Ordered Quantity: 90.0 Unit: cap(s) Repeat number: 4 Vitamin D3 tablet (cholecalciferol (vitamin d3)) (1 source) warfarin sodium 5 mg oral tablet (20 sources) Vitamin K Antagonist Start: 12-31-2024 End: 03-06-2025 warfarin (COUMADIN) 5 mg tablet Indications: alf current use of anticoagulant therapy , Nonrheumatic [...] 0 Refill(s), 07/27/24 10:46:00 AM EST, [id number], Dental caries, 193, cm, 07/17/24 9:57:00 EST, [...] DIRECTED, # 3 EA, 1 Refill(s), Pharmacy: [facility], 193, cm, 04/16/24 15:08:00 EDT, [...] DIRECTED, # 3 EA, 1 Refill(s), Pharmacy: [facility], 193, cm, 04/16/24 15:08:00 EDT, Height, kg, 04/16/24 15:08:00 EDT, Dosing Weight Start Date: 04/16/24 Stop Date: 10/13/24 Status: Ordered Benzocaine (1 source) Standardized Chemical Allergen Start: 11-20-2024 End: 11-20-2024 TOPICAL, X (OR/PROCEDURE) PRN, Starting on Tue11/20/24 at 1447, Until Tue11/20/24 at 1447, Intraprocedure Blood-Glucose Meter,Continuous (DEXCOM G6 CLOTH BOLT BANDER) misc (20 sources) Start: 02-14-2023 End: 12-20-2024 Blood-Glucose Meter,Continuous (DEXCOM G6 CLOTH BOLT BANDER) misc Indications: Type 1 diabetes mellitus with diabetic polyneuropathy (HCC) Use to check blood sugar at least four (4) times daily. 1 Each 02/14/2023 12/20/2024 Discontinued (Other) Start: 02-14-2023 Blood-Glucose Meter,Continuous (DEXCOM G6 CLOTH BOLT BANDER) misc Indications: Type 1 diabetes mellitus with diabetic polyneuropathy (HCC) Use to check blood sugar at least four (4) times daily. 1 Each 02/14/2023 Active Start: 02-14-2023 Blood-Glucose Meter,Continuous (DEXCOM G6 CLOTH BOLT BANDER) misc Indications: Type 1 diabetes mellitus with diabetic polyneuropathy (HCC) Use to check blood sugar at least four (4) times daily. 1 Each 0 02/14/2023 Active Start: 01-31-2023 End: 02-07-2023 Blood-Glucose Meter,Continuo us (DEXCOM G6 CLOTH BOLT BANDER) misc Indications: Type 1 diabetes mellitus with hyperglycemia (HCC) For use with dexcom g6 sensors 1 Each 0 01/31/2023 02/07/2023 Discontinued (Patient chooses alternative therapy) Start: 01-31-2023 Blood-Glucose Meter,Continuous (DEXCOM G6 CLOTH BOLT BANDER) misc Indications: Type 1 diabetes mellitus with hyperglycemia (HCC) For use with dexcom g6 sensors 1 Each 0 01/31/2023 Active Start: 01-21-2023 Blood-Glucose Meter,Continuous (DEXCOM G6 CLOTH BOLT BANDER) misc Indications: Type 1 diabetes mellitus with hyperglycemia (HCC) For use with dexcom g6 sensors 1 Each 0 01/21/2023 Active Comment on above: For use with dexcom g6 sensors Use to check blood s ugar at least four (4) times daily. Blood-Glucose Meter,Continuous (DEXCOM G7 CLOTH BOLT BANDER) misc (20 sources) Start: 11-24-2023 End: 12-20-2024 Blood-Glucose Meter,Continuous (DEXCOM G7 CLOTH BOLT BANDER) misc Indications: Type 1 diabetes mellitus with diabetic polyneuropathy (HCC) 1 Each five times a day. 1 Each 11/24/2023 12/20/2024 Discontinued (Other) Start: 11-24-2023 Blood-Glucose Meter,Continuous (DEXCOM G7 CLOTH BOLT BANDER) misc Indications: Type 1 diabetes mellitus with diabetic polyneuropathy (HCC) 1 Each five times a day. 1 Each 11/24/2023 Active Start: 11-24-2023 End: 11-23-2024 Blood-Glucose Meter,Continuo us (DEXCOM G7 CLOTH BOLT BANDER) misc Indications: Type 1 diabetes mellitus with diabetic polyneuropathy (HCC) 1 Each five times a day. 1 Each 11/24/2023 11/23/2024 Active Start: 11-24-2023 End: 11-23-2024 Blood-Glucose Meter,Continuo us (DEXCOM G7 CLOTH BOLT BANDER) misc Indications: Type 1 diabetes mellitus with diabetic polyneuropathy (HCC) 1 Each five times a day. 1 Each 0 11/24/2023 11/23/2024 Active Start: 02-07-2023 End: 02-14-2023 Blood-Glucose Meter,Continuo us (DEXCOM G7 CLOTH BOLT BANDER) misc Indications: Type 1 diabetes mellitus with diabetic polyneuropathy (HCC) Use daily as directed 1 Each 0 02/07/2023 02/14/2023 Discontinued Start: 02-07-2023 Blood-Glucose Meter,Continuous (DEXCOM G7 CLOTH BOLT BANDER) misc Indications: Type 1 diabetes mellitus with diabetic polyneuropathy (HCC) Use daily as directed 1 Each 0 02/07/2023 Active Start: 01-07-2023 Blood-Glucose Meter,Continuous (DEXCOM G7 CLOTH BOLT BANDER) misc Indications: Type 1 diabetes mellitus with hyperglycemia (HCC) Use for glucose monitoring 4 times a day 1 Each 0 01/07/2023 Active Start: 12-10-2022 End: 01-07-2023 Blood-Glucose Meter,Continuo us (DEXCOM G7 CLOTH BOLT BANDER) misc Indications: Type 1 diabetes mellitus with hyperglycemia (HCC) Use for glucose monitoring 4 times a day 1 Each 0 12/10/2022 01/07/2023 Discontinued Start: 12-10-2022 Blood-Glucose Meter,Continuous (DEXCOM G7 CLOTH BOLT BANDER) misc Indications: Type 1 diabetes mellitus with hyperglycemia (HCC) Use for glucose monitoring 4 times a day 1 Each 0 12/10/2022 Active Start: 11-15-2022 Blood-Glucose Meter,Continuous (DEXCOM G7 CLOTH BOLT BANDER) misc Use to test glucose levels 4 times per day as instructed (Type 1 diabetes mellitus E10.65) 1 Each 0 11/15/2022 Active End: 02-07-2023 Blood-Glucose Meter,Continuo us (DEXCOM G7 CLOTH BOLT BANDER) misc 1 Each as directed. 0 02/07/2023 [...] 1 Each every 10 days. 5 Each 11 01/07/2023 01/07/2024 Active Start: 11-15-2022 End: 12-10-2022 Blood-Glucose Sensor (DEXCOM G7 SENSOR) xenia Use to test glucose levels 4 times per day as instructed (Type 1 diabetes mellitus E10.65) 3 Each 11/15/2022 12/10/2022 Discontinued Start: 11-15-2022 Blood-Glucose Sensor [...] of hyper- and hypoglycemia Continuous Blood Gluc Tennis Net Maker (FreeStyle [place] 2 [place]) device (3 sources) Start: End: Continuous Blood Gluc Tennis Net Maker (FreeStyle [place] 2 [place]) device 1 Device Once for 1 dose. [...] (Other) Start: 11-06-2020 [facility] needed for muscle spasms cyclobenzaprine (FLEXERIL) 10 MG tablet Indications: Right hip pain Take 1 tablet by mouth 3 times daily as needed for Muscle spasms. 30 tablet 0 11/06/2020 Active Comment on above: Take 2 tablets by mo [facility] twice daily as needed. DEXCOM G6 SENSOR [...] Active docusate sodium 50 mg / sennosides, retirement 8.6 mg oral tablet (5 sources) Start: [...] Corticosteroid, beta2-Adrenergic Agonist Start: 07-05-20 End: 05-06-20 23 take 1 puff(s) by inhalation once daily fluticasone-umeclidi n-vilanter (TRELEGY ELLIPTA) 100-62.5-25 mcg inhalation powder Inhale 1 Puff as instructed once daily. 180 Each 3 12/10/2022 12/10/2022 Discontinued (Course of therapy completed) Comment on above: Inhale 1 Puff as ins tructed once daily. fluticasone-umeclidin -vilanter (TRELEGY ELLIPTA) 200-62.5-25 mcg inhalation powder (18 sources) Start: 11-23-19 23 take 1 puff(s) by inhalation once daily fluticasone-umeclidi n-vilanter (TRELEGY ELLIPTA) 200-62.5-25 mcg inhalation powder Indications: Medication refill Inhale 1 Puff as instructed once daily. 28 Each 0 11/22/2022 Active Start: 07-12-2022 take 1 puff(s) by inhalation once daily oaqyllqwiik-jcxangzbg-maitzghj (TRELEGY ELLIPTA) 200-62.5-25 mcg inhalation powder Indications: Medication refill Inhale 1 Puff as instructed once daily. 60 Each 2 07/12/2022 Active Start: 07-12-2022 End: 10-10-2022 take 1 puff(s) by inhalation once daily bkqnulufqqt-twqtqxizh-lkeepgws (TRELEGY ELLIPTA) 200-62.5-25 mcg inhalation powder Indications: Medication refill Inhale 1 Puff as instructed once daily. 60 Each 2 07/12/2022 10/10/2022 Active Start: 07-12-2022 End: 07-12-2022 take 1 puff(s) by inhalation once daily hhvahwpakax-fecfbhlsl-phrznsfo (TRELEGY ELLIPTA) 200-62.5-25 mcg inhalation powder Indications: Medication refill , SOB (shortness of breath) Inhale 1 Puff as instructed once daily. 60 Each 0 07/12/2022 07/12/2022 Discontinued (Course of therapy completed) Start: 07-12-2022 End: 07-12-2022 take 1 puff(s) by inhalation once daily ulpaicmcewg-zgmelxjbx-rtmoystn (TRELEGY ELLIPTA) 200-62.5-25 mcg inhalation powder Indications: Medication refill Inhale 1 Puff as instructed once daily. 60 Each 2 07/12/2022 07/12/2022 Discontinued (Course of therapy completed) End: 07-12-2022 take 1 puff(s) by inhalation once daily mdvaddprhjl-jggdxavht-mqnpquub (TRELEGY ELLIPTA) 200-62.5-25 mcg inhalation powder Inhale [...] Discontinued (Patient chooses alternative therapy) Start: 11-22-2022 FREESTYLE LIBR E 2 SENSOR kit Indications: Type 1 [...] (Other) Start: 12-25-2018 take 2 capsules by out three times daily gabapentin (NEURONTIN) 400 MG [...] BID, # 385 gram(s), 1 Refill(s), [id number], 193, cm, 05/23/24 9:11:00 EST, Height, 104.77, [...] EDT 01/01/2025 02/27/2025 Discontinued polyethylene glycol 3350 99787 mg powder for oral solution (20 sources) [...] on above: Take 1 tablet by tere once daily for 7 days. Take with [...] Translations: [Other specified cardiac arrhythmias] 01-08-2025 Chronic Cardiac dysrhythmias (20 sources) Tachycardia; Translations: [Tachycardia, unspecified] Onset: 5 Resolved: 5 02-05-2025 Episodic Chronic obstructive pulmonary disease and bronchiectasis (8 [...] 3 04-17-2018 Chronic Diabetes mellitus without complication (1 source) Diabetes mellitus without complication 04-16-2024 Disorders of lipid metabolism (20 sources) Hyperlipidemia; Translations: [Hypercholesterolemia] Onset: 4 04-17-2018 Chronic Essential hypertension (20 sources) Hypertensive disorder; Translations: [Essential (primary) hypertension] Onset: 2 Resolved: 6 03-18-2020 Chronic Genitourinary symptoms and ill-defined conditions (1 source) Dysuria; Translations: [Dysuria] Episodic Headache; including migraine (1 source) Headache; Translations: [Headache, unspecified] Onset: 4 Episodic Heart valve disorders (20 sources) Mitral valve regurgitation; Translations: [History of aortic valve replacement] Onset: 6 Resolved: 5 04-17-2018 Chronic Hypertension with complications and secondary hypertension (1 source) Hypertension secondary to endocrine disorders; Translations: [Hypertension associated with type 1 diabetes mellitus (HCC)] Onset: 5 Chronic Immunizations and screening for infectious disease [...] (1 source) Thrombocytosis; Translations: [Thrombocytosis] 01-08-2025 Episodic Nonspecific chest pain (1 source) Chest pain; Translations: [Chest pain, unspecified] Episodic Nutritional deficiencies (20 sources) Vitamin D [...] specified aftercare] Episodic Other aftercare (4 sources) alf (current) use of insulin; Translations: [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] Onset: 2 Episodic Other aftercare (3 sources) Taking high risk medication; Translations: [Other residential (current) drug therapy] Episodic Other aftercare (3 sources) Surgical follow-up; Translations: [Encounter for follow-up examination after completed treatment for conditions other than malignant neoplasm] 12-31-2024 Episodic Other aftercare (20 sources) Long-term current use of anticoagulant; Translations: [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] Onset: 5 01-14-2025 Episodic Other aftercare (1 source) Long-term current use of insulin; Translations: [alf (current) use of insulin] 02-28-2025 Episodic Other aftercare (4 sources) 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; Translations: [alf current use of anticoagulant therapy] Onset: 5 [...] circulatory system] Onset: 5 03-07-2025 Episodic Other circulatory disease (1 source) Personal history of other diseases of the circulatory system; Translations: [H/O aortic valve repair] Onset: 5 Episodic Other connective tissue disease (4 sources) [...] vascular disease, unspecified] Onset: 5 02-13-2025 Chronic Pleurisy; pneumothorax; pulmonary collapse (20 sources) Atelectasis; Translations: [Atelectasis] Onset: 2 Resolved: 5 Episodic Pneumonia (except that caused by tuberculosis or [...] Onset: 5 03-07-2025 Episodic Residual codes; unclassified (3 sources) Other specified postprocedural states; Translations: [History of heart surgery] Onset: 5 Episodic Residual codes; unclassified (1 source) Localized edema; Translations: [Peripheral edema] Onset: 5 Episodic Spondylosis; intervertebral disc disorders; other back [...] Translations: [Dermatitis, unspecified] Onset: 10-17-2020 10-17-2020 Episodic Complications of surgical procedures or medical care (20 sources) Postoperative wound infection; Translations: [Infection following a procedure, other surgical site, initial encounter] Onset: 12-25-2024 Resolved: 12-26-2024 Episodic Diabetes mellitus without complication (20 sources) Hyperglycemia, unspecified; Translations: [Insulin pump present] Onset: 06-08-2018 Episodic Diseases of white blood cells (20 sources) Leukocytosis; Translations: [Elevated white blood cell count, unspecified] Onset: 02-07-2024 Resolved: 02-10-2024 02-10-2024 Chronic Disorders of teeth and jaw (5 sources) Infection of tooth; Translations: [Periapical abscess without sinus] Onset: 11-30-2024 Episodic Fluid and electrolyte disorders (20 sources) Hypervolemia; Translations: [Fluid overload, unspecified] Onset: 01-28-2022 Resolved: 12-26-2024 01-29-2022 Episodic Heart valve disorders (20 sources) Systolic murmur; Translations: [Cardiac murmur, unspecified] Onset: 08-22-2013 04-17-2018 Episodic Mood disorders (2 sources) Mood disorders Onset: 03-15-2025 03-15-2025 Other connective tissue disease (20 sources) Muscle [...] [Other specified joint disorders, left hip] Onset: 03-29-2022 03-29-2022 Episodic Other non-traumatic joint disorders (1 source) [...] right upper limb] Onset: 09-25-2021 09-26-2021 Episodic Residual codes; unclassified (2 sources) H/O: [...] hypoxia] Onset: 02-07-2024 Resolved: 02-10-2024 02-10-2024 Episodic Screening and history of mental health and substance abuse codes (20 sources) Ex-smoker; Translations: [Personal history of nicotine dependence] Onset: 11-12-2021 04-04-2019 Episodic Septicemia (except in labor) (20 sources) [...] Test Name Value Interpretation Reference Range Facility NCS and/or EMG Patienton NCS and/or EMG Patient [facility] Pulmonary Services/Neurology [address] [place] [address] MR#: [id number] Acct: [id number] Name: LUISITO ZHONG Rep #: [id number] : 1980 44 From: Jose Antonio Girard MD Referring Dr: Kristal Desai MD Status: REG CLI Location: [facility] Date: 03/27/25 Sex: M C NCS and/or EMG Patient Report Ordering Doctor: Kristal Desai DATE OF SERVICE: 03/27/25 Luisito presents with complaints of numbness and tingling in both hands. He has neck pain radiating into the upper limbs. Electrodiagnostic findings: The right median motor nerve demonstrates prolonged latency with borderline reduced in amplitude and reduced conduction velocity. Left median motor nerve demonstrates borderline prolonged distal latency with normal amplitude and reduced conduction velocity. Right ulnar motor nerve demonstrates normal distal latency with reduced amplitude. Left ulnar motor nerve demonstrates normal distal latency with reduced amplitude. Prolonged median ulnar F???waves. Prolonged median and ulnar sensory latencies are noted. Needle EMG testing was performed upper limbs. 1+ fibrillations noted in the flexor carpi ulnaris, triceps and lower cervical paraspinals bilaterally. Motor unit action potentials with normal amplitude and duration. Electrodiagnostic impression: This is an abnormal study in the upper limbs 1. 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 There is evidence of demyelination and axonal loss. This may be secondary to a larger peripheral polyneuropathy. A better assessment can be made upon completion of the lower extremity testing. 2. Electrodiagnostic evidence is suggestive for acute bilateral C7 radiculopathy. Consider correlation with cervical spine imaging. Multi Select Codes Neurology Neurology Interp Codes: 60028-50 Musc test done w/n test comp (interp) (2) and 91852-74 Nrv cndj test 9-10 studies (interp) 03/27/25 1224 Date Jose Antonio Girard MD CC: ABHISHEK Taylor; Dr. Jose Antonio Girard MD; Dr. Kristal Desai MD Date Dictated: 03/27/25 122 Date Transcribed: 03/27/251220 Cage Cashier: FERMIN Signed Normal [facility] 25(OH)D3 [facility] 25-hydroxyvitamin D3 [Mass/Vol] 49.0 ng/mL Normal 31.0-80.0 [facility] Comment on above: Order Comment: Speci men Type: BLOOD SPECIMENOrdering Facility: [facility] Address: [address] [place] [address] Result Comment: Clas sification of 25 [place] Vitamin D status:Deficiency/Insufficiency: < or = 30 ng/ml.Sufficiency/Optimal Levels: 31-80 ng/mLToxicity: > 100 ng/mL.Test performed by chemiluminescent immunoassay. Performed By: #### 1 989-3 ####[facility] LABCLIA [id number] [place] [address] [place] CBC panel Auto (Bld)on 03-26 Erythrocyte distribution width (RBC) [Ratio] 14.7 % Normal 11.5-15.0 [facility] Comment on above: Order Comment: Speci men Type: BLOOD SPECIMENOrdering Facility: [facility] Address: [address] [place] [address] Performed By: #### 5 8410-2 ####[facility] LABCLIA [id number] [place] [id number] [place] Hematocrit (Bld) [Volume fraction] 41.6 % Normal 39.0-51.0 [facility] Comment on above: Order Comment: Speci men Type: BLOOD SPECIMENOrdering Facility: [facility] Address: [address] [place] [address] Performed By: #### 5 8410-2 ####[facility] LABIA [id number] [place] [address] [place] Hemoglobin (Bld) [Mass/Vol] 13.4 g/dL Normal 13.0-17.0 [facility] Comment on above: Order Comment: Speci men Type: BLOOD SPECIMENOrdering Facility: [facility] Address: [address] [place] [address] Performed By: #### 5 8410-2 ####[facility] LABIA [id number] [place] [address] [place] MCH (RBC) [Entitic mass] 28.5 pg Normal 26.0-34.0 [facility] Comment on above: Order Comment: Speci men Type: BLOOD SPECIMENOrdering Facility: [facility] Address: [address] [place] [address] Performed By: #### 5 8410-2 ####[facility] LABIA [id number] [address] [place] MCHC (RBC) [Mass/Vol] 32.2 g/dL Normal 30.5-36.0 [facility] Comment on above: Order Comment: Speci men Type: BLOOD SPECIMENOrdering Facility: [facility] Address: [address] [place] [address] Performed By: #### 5 8410-2 ####[facility] LABIA [id number] [place] [address] [place] MCV (RBC) [Entitic vol] 88.3 fL Normal 80.0-100.0 [facility] Comment on above: Order Comment: Speci men Type: BLOOD SPECIMENOrdering Facility: [facility] Address: [address] [place] [address] Performed By: #### 5 8410-2 ####[facility] LABCLIA [id number] [place] [address] [place] Nucleated RBC (Bld) [#/Vol] 10*3/uL Normal <0.01 [facility] Comment on above: Order Comment: Speci men Type: BLOOD SPECIMENOrdering Facility: [facility] Address: [address] [place] [address] Performed By: #### 5 8410-2 ####[facility] LABCLIA [id number] [place] [address] [place] Platelet mean volume (Bld) [Entitic vol] 10.4 fL Normal 9.0-12.7 [facility] Comment on above: Order Comment: Speci men Type: BLOOD SPECIMENOrdering Facility: [facility] Address: [address] [place] [address] Performed By: #### 5 8410-2 ####[facility] LABCLIA [id number] [place] [address] [place] Platelets (Bld) [#/Vol] 224 10*3/uL Normal 150-400 [facility] Comment on above: Order Comment: Speci men Type: BLOOD SPECIMENOrdering Facility: [facility] Address: [address] [place] [address] Performed By: #### 5 8410-2 ####[facility] LABCLIA [id number] [place] [address] [place] RBC (Bld) [#/Vol] 4.71 10*6/uL Normal 4.20-6.00 [facility] Comment on above: Order Comment: Speci men Type: BLOOD SPECIMENOrdering Facility: [facility] Address: [address] [place] [address] Performed By: #### 5 8410-2 ####[facility] LABCLIA [id number] [address] [place] WBC (Bld) [#/Vol] 4.65 10*3/uL Normal 3.70-11.00 [facility] Comment on above: Order Comment: Speci men Type: BLOOD SPECIMENOrdering Facility: [facility] Address: [address] [place] [address] Performed By: #### 5 8410-2 ####[facility] LABCLIA [id number] [address] [place] [facility] LUIS[facility]HONG ([id number]) 1980 M T Date Time Provider Department 03/26/25 ROBYN TAYLOR During your visit today, we recorded the following information about you: Allergies As of Date: 03/26/2025 Noted Allergy Reaction HYDROMORPHONE 06/18/2019 9 - Itching TRAMADOL 10/27/2021 16 - Unknown Comments: Burning skin Date Reviewed: 03/07/2025 Reviewed by: Colleen Hoffman LPN - Fully Assessed Prescriptions as of 03/26/2025 - warfarin (COUMADIN) 5 mg tablet Take [...] once daily. Problem List As Of Date 03/26/2025 Noted Resolved Impingement syndrome of right shoulder [...] Atelectasis [J98.11] 01/26/2022 Post-op pain [G89.18] 01/26/2022 Exertional dyspnea [R06.09] 01/26/2022 Tricuspid regurgitation [I07.1] 01/26/2022 Aortic regurgitation [I35.1] 01/26/2022 Obesity, Class II, BMI 35-39.9 [E66.812] 01/27/2022 Hypervolemia [E87.70] 01/28/2022 Encounter for support and coordination of trans*01/28/2022 Nicotine use disorder, F17.2 [F17.200] 01/31/2022 History of asthma [Z87.09] 09/18/2020 History of cocaine use [F14.91] 03/26/2013 Mixed hyperlipidemia [E78.2] 08/22/2013 Hypoglycemia [E16.2] 01/07/2023 Chronic right shoulder [...] (*02/09/2024 Homeless [Z59.00] 02/09/2024 Cocaine abuse (HCC) [F14.10] 02/09/2024 Aortic valve disorder [I35.9] 12/19/2024 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 Normal [facility] Comprehensive metabolic 2000 panelon 03-26-2025 Albumin [Mass/Vol] 3.9 g/dL Normal 3.9-4.9 [facility] Comment on above: Order Comment: Speci men Type: BLOOD SPECIMENOrdering Facility: [facility] Address: [address] [place] [id number] Performed By: #### 2 4323-8, 3024-7, 57955-2, 3051-0 ####[facility] LABCLIA [id number] [address] [address] [place] ALP [Catalytic activity/Vol] 90 U/L Normal 38-113 [facility] Comment on above: Order Comment: Speci men Type: BLOOD SPECIMENOrdering Facility: [facility] Address: [address] [place], [place] [address] Performed By: #### 2 4323-8, 3024-7, 73144-7, 3051-0 ####[facility] LABIA [id number] [place] [address] [place] ALT [Catalytic activity/Vol] 32 U/L Normal 10-54 [facility] Comment on above: Order Comment: Speci men Type: BLOOD SPECIMENOrdering Facility: [facility] Address: [address] [place], [place] [address] Performed By: #### 2 4323-8, 3024-7, 66072-8, 3051-0 ####[facility] LABCLIA [id number] [place] [address] [place] Anion gap [Moles/Vol] 10 mmol/L Normal 8-15 [facility] Comment on above: Order Comment: Speci men Type: BLOOD SPECIMENOrdering Facility: [facility] Address: [address] [place], [place] [address] Performed By: #### 2 4323-8, 3024-7, 04621-1, 3051-0 ####[facility] LABCLIA [id number] [address] [address] [place] AST [Catalytic activity/Vol] 35 U/L Normal 14-40 [facility] Comment on above: Order Comment: Speci men Type: BLOOD SPECIMENOrdering Facility: [facility] Address: [address] [place], [place] [address] Performed By: #### 2 4323-8, 3024-7, 60497-0, 3051-0 ####[facility] LABCLIA [id number] [facility] [address] [address] [place] Bilirubin [Mass/Vol] 0.5 mg/dL Normal 0.2-1.3 [facility] Comment on above: Order Comment: Speci men Type: BLOOD SPECIMENOrdering Facility: [facility] Address: [address] [place], [place] [address] Performed By: #### 2 4323-8, 3024-7, 69031-7, 3051-0 ####[facility] LABCLIA [id number] [address] [address] [place] Calcium [Mass/Vol] 9.0 mg/dL Normal 8.5-10.2 [facility] Comment on above: Order Comment: Speci men Type: BLOOD SPECIMENOrdering Facility: [facility] Address: [address] [place], [place] [address] Performed By: #### 2 4323-8, 3024-7, 23892-8, 3051-0 ####[facility] LABIA [id number] [address] [address] [place] Chloride [Moles/Vol] 102 mmol/L Normal 98-107 [facility] Comment on above: Order Comment: Speci men Type: BLOOD SPECIMENOrdering Facility: [facility] Address: [address] [place], [place] [address] Performed By: #### 2 4323-8, 3024-7, 53928-2, 3051-0 ####[facility] LABIA [id number] [address] [address] [place] CO2 [Moles/Vol] 24 mmol/L Normal 22-30 [facility] Comment on above: Order Comment: Speci men Type: BLOOD SPECIMENOrdering Facility: [facility] Address: [address] [place], [place] [address] Performed By: #### 2 4323-8, 3024-7, 03527-2, 3051-0 ####[facility] LABIA [id number] [address] [address] [place] Creatinine [Mass/Vol] 0.78 mg/dL Normal 0.73-1.22 [facility] Comment on above: Order Comment: Speci men Type: BLOOD SPECIMENOrdering Facility: [facility] Address: [address] [place] [address] Performed By: #### 2 4323-8, 3024-7, 60166-8, 3051-0 ####[facility] [id number] [address] [address] [place] eGFRcr SerPlBld CKD-EPI 2020 112 mL/min/1.73m??? Normal >=60 [facility] Comment on above: Order Comment: Delfinai [facility] Type: BLOOD SPECIMENOrdering Facility: [facility] Address: [address] [place] [address] Result Comment: Rosanna mated Glomerular Filtration Rate [...] actual GFR. Performed By: #### 2 4323-8, 3024-7, 63227-1, 3051-0 ####[facility] [id number] [address] [address] [place] Glucose [Mass/Vol] 325 mg/dL High 74-99 [facility] Comment on above: Order Comment: Delfinai men Type: BLOOD SPECIMENOrdering Facility: [facility] Address: [address] [place] [address] Result Comment: The [place] Diabetes Association (ADA) provides guidance for cutoff [...] Standards of Medical Care in Diabetes 2016, [place] [employer] Association. Diabetes Care. 2016.39(Suppl 1). Performed By: #### 2 4323-8, 3024-7, 50642-9, 3051-0 ####[facility] [id number] [place] [address] [place] Potassium [Moles/Vol] 4.4 mmol/L Normal 3.7-5.1 [facility] Comment on above: Order Comment: Speci men Type: BLOOD SPECIMENOrdering Facility: [facility] Address: [address] [place] [address] Performed By: #### 2 4323-8, 3024-7, 37895-3, 3051-0 ####[facility] [id number] [place] [address] [place] Protein [Mass/Vol] 6.6 g/dL Normal 6.3-8.0 [facility] Comment on above: Order Comment: Speci men Type: BLOOD SPECIMENOrdering Facility: [facility] Address: [address] [place] [address] Performed By: #### 2 4323-8, 3024-7, 38910-6, 3051-0 ####[facility] [id number] [place] [id number] [place] Sodium [Moles/Vol] 136 mmol/L Normal 136-144 [facility] Comment on above: Order Comment: Speci men Type: BLOOD SPECIMENOrdering Facility: [facility] Address: [address] [id number] Performed By: #### 2 4323-8, 3024-7, 56176-8, 305-0 ####[facility] LABCLIA [id number] [address] [place] [address] [place] Urea nitrogen [Mass/Vol] 10 mg/dL Normal 9-24 [facility] Comment on above: Order Comment: Speci men Type: BLOOD SPECIMENOrdering Facility: [facility] Address: [address] [place] [address] Performed By: #### 2 4323-8, 3024-7, 58148-0, 305-0 ####[facility] LABCLIA [id number] [address] [place] [address] [place] [facility] 2024 Ferritin [Mass/Vol] 44.3 ng/mL Normal 30.3-565.7 [facility] Comment on above: Order Comment: Speci men Type: BLOOD SPECIMENOrdering Facility: [facility] Address: [address] [place] [address] Performed By: #### 3 016-3, 2276-4 ####[facility] LABCLIA [id number] [address] [place] [address] [place] Iron and Iron binding capaci [facility] 03-26-2025 Iron [Mass/Vol] 39 ug/dL Low 41-186 [facility] Comment on above: Order Comment: Speci men Type: BLOOD SPECIMENOrdering Facility: [facility] Address: [address] [place] [address] Performed By: #### 2 4323-8, 3024-7, 95151-1, 305-0 ####[facility] LABCLIA [id number] [address] [address] [place] Iron binding capacity [Mass/Vol] 349 ug/dL Normal 232-386 [facility] Comment on above: Order Comment: Speci men Type: BLOOD SPECIMENOrdering Facility: [facility] Address: [address] [place] [address] Performed By: #### 2 4323-8, 3024-7, 08990-0, 3051-0 ####[facility] LABCLIA [id number] [address] [address] [place] Iron/TIBC [Molar ratio] 11.2 % Low 15.0-57.0 [facility] Comment on above: Order Comment: Speci men Type: BLOOD SPECIMENOrdering Facility: [facility] Address: [address] [place] [address] Performed By: #### 2 4323-8, 3024-7, 87501-8, 3051-0 ####[facility] LABCLIA [id number] [address] [address] [place] T3Free SerPl-mCncon 03-26-20 25 Free T3 [Mass/Vol] 2.8 pg/mL Normal 2.3-4.1 [facility] Comment on above: Order Comment: Speci men Type: BLOOD SPECIMENOrdering Facility: [facility] Address: [address] [place] [address] Performed By: #### 2 4323-8, 3024-7, 68199-6, 3051-0 ####[facility] LABCLIA [id number] [address] [address] [place] T4 Free SerPl-mCncon 025 Free T4 [Mass/Vol] 1.1 ng/dL Normal 0.9-1.7 [facility] Comment on above: Order Comment: Speci men Type: BLOOD SPECIMENOrdering Facility: [facility] Address: [address] [place] [address] Performed By: #### 2 4323-8, 3024-7, 73276-9, 3051-0 ####[facility] [id number] [place] [id number] [facility] OF [place] TSH SerPl-aCncon 03-26-2025 TSH Qn 0.420 m[IU]/L Normal 0.270-4.200 [facility] Comment on above: Order Comment: Speci men Type: BLOOD SPECIMENOrdering Facility: [facility] Address: [address] [place] [address] Performed By: #### 3 016-3, 2276-4 ####[facility] LABIA [id number] [address] CNPRoxi 03-19-2025 CAROLIN Telephone (FAMMAS) LUISITO ZHONG ([id number]) 1980 [facility] Date Time Provider Department 03/19/25 ROBYN TAYLOR [...] at upcoming July visit. Robyn Taylor APRN.CNP I attempted to call patient Papi. No answer. I left a voice mail message for patient to return call to office. Colleen Hoffman LPN March 19, 2025 2:27 PM Eliza Hopkins 03/20/2025 8:03 AM Signed ----- Message from Robyn Taylor APRN.AMBULANCE ATTENDANT sent at 03/18/2025 8:57 PM EDT ----- [...] wanted to make you aware. Lisa Cannon [facility] Eliza Hopkins 03/20/2025 8:04 AM Signed Called, [...] Mitral regurgitation [I34.0] (more content not included)... [facility] 36on 03-15-2025 36 PC to pt mother [...] office if they need anything else. Normal [facility] 36 The patient was seen by the spinal surgeon today after seeing Dr Morris. He recommended neck surgery and he will need to be off of blood thinners 1 week prior and 3 days after. The patient was told by the [facility] that he cannot stop his Coumadin. Please advise. The patient can be reached at his mom's number [phone] and if he is not there, please inform his mom Trice of the recommendations. [facility] 36 Echo scheduled 2 pm at [facility] Patient informed [facility] Cerv Spine 2 or 3 Viewson Cerv Spine 2 or 3 Views [facility] Imaging Services [address] [place], [place] [address] Cerv Spine 2 or 3 Views MR#: [id number] Acct: [id number] Name: LUISITO ZHONG Rep #: [id number] : 1980 M 44 From: Roman Gee MD PCP: Care Physician,No Primary Status: DEP AMB Study: Cerv Spine 2 or 3 Views Date of Exam: 03/15/25 Exam# [id number] Ordering Dr: Julieta Riggs PROCEDURE: CERV SPINE [...] instability of the cervical spine. Reading [id number] CC: SHAY Cesar; No Primary Care Physician Cage Cashier: Signed Normal [facility] Office Visiton 03-15-2025 Follow-up visit [id number] FarheenPapijessica marques S 1980 M Date Provider Department Center 03/15/2025 44800-HMDNYYBERIN MORRIS [facility] NEOCS G None Family History Problem Relation Age of Onset Colon cancer Maternal Grandmother No Known Problems Father No Known Problems Mother Other Sister Comments: MS Heart disease Paternal Grandmother Family Status - Relation Status Age at Maternal Grandmother Father Alive Mother Alive Sister Alive Paternal Grandmother Maternal Grandfather Paternal Grandfather Level of Service:38212 [place] OFFICE/OUTPATIENT ESTABLISHED MOD MDM 30 MIN Reason for Visit and Comments: Follow-up [679644] - Valvular disease Normal [facility] Orthopedic Visit Reporton Orthopedic Visit Report [facility] [address] [place] [address] OFFICE VISIT Date of Service: 03/15/25 MR#: [id number] Acct: [id number] Name: LUISITO ZHONG Rep #: [id number] : 1980 Provider: Dr. Parminder Aldridge MD Age/Sex: 44/M Location: [facility] Status: Signed Intake Vital Signs 03/20/23 11:44 [...] mg tablet mg PO 03/15/25 03/15/25 History [facility] Medical History (Updated 03/15/25 @ 15:49 by [...] by me, Dr. Parminder Aldridge MD 03/15/25 1324. Part of today???s visit was documented by Brinda Kuhn RN, acting as scribe. LUISITO ZHONG is a 44 year old M here today for cervical spine pain. He complains of stiffness and limited ROM in his neck. The pain does radiate up into his head. This has been going on since May insidious onset. The pain does intermittently radiate [...] He did see an orthopedic surgeon at [facility] for this. A nerve conduction test was ordered and is scheduled for March 27. He does take Warfarin. He had open heart surgery in December for an aortic valve replacement at [facility]. He does get short of breath due [...] a planned aortic valve replacement at the [facility], which was a revision surgery due to [...] recent HbA (more content not included)... Normal [facility] Progress Noteon 03-15-2025 Progress Note [facility] Cardiov ascular Group Cardiology Note Assessment and [...] now in a sober living facility in [place] and this is a stable environment, jennifer-based practice that is helping him to avoid substance abuse. 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 Taking warfarin, this is followed via the coumadin clinic in [place]. He is following closely with primary care [...] subaortic membrane. He sought surgical opinion at [facility], and ultimately underwent repeat surgical intervention on [...] (1.93 m) Body (more content not included)... [facility] CNCOon 03-14-2025 CNCO Letter Text [facility] CNPNon 03-08-2025 QAMARN [facility] CNOVon 03-07-2025 CNOV Office Visit (FAMMAS ) LUISITO ZHONG ([id number]) 1980 M [facility] Date Time Provider Department 03/07/25 8:20 AM [...] Patient goes to the Coumadin Clinic in [place] he missed a couple dose of his medication last week Patient is asking if he can get an INR test done today because he cannot make it to the [place] [facility] for a couple of weeks Per Robyn patient does have a standing order for POC INR testing INR done in office today (result 2.0) with instructions per Robyn for patient contact the Coumadin (anticoagulant) Clinic in [place] for dosing instructions No refills needed Colleen Hoffman LPN March 07, 2025 8:31 AM [id number] Robyn Taylor APRN.AMBULANCE ATTENDANT 03/07/2025 8:59 AM Signed - Continue taking [...] your visit notes to our office (fax [phone]). - See Dr. Marysol Cardoza on March 12 and sign a release for [facility] to send your test results. Your neuropathy and nerve conduction tests are scheduled there on March 13. - Monitor for any of the following and contact your conduit installer or go to urgent care/ER if they [...] exercise recommended. Please call the office at [phone] Option 4 or send a direct message via Keelr with any questions related to your visit today. Time throughout the day is reserved for patients with scheduled appointments. Please kindly allow 2-3 business days for staff to respond to phone calls or Keelr messages. Robyn Taylor APRN.AMBULANCE ATTENDANT 03/07/2025 10:48 AM Signed This note was created using Mechanology technology with patient consent. Subjective The patient [...] valve on 12/25/[address] Beavers at [facility] related to structural valve degeneration of initial [...] Dr. Beavers; 10 weeks post-op. - General conduit installer is Dr. Morris at [facility]; follow-up appointment scheduled for 03/15. - Current [...] (HCC) last used (more content not included)... [facility] 03-07-2025 [facility] Telephone ([employer]) LUISITO ZHONG Shelli ([id number]) 1980 M [facility] Date Time Provider Department 03/07/25 RENAY GARRETT During your visit today, we recorded the following information about you: Colleen Hoffman LPN 03/07/2025 11:15 AM Signed I called [facility] and spoke with triage nurse Jens to [...] He also had an appointment with the [place] [facility] today at 12:00 pm Colleen Hoffman LPN March 07, 2025 11:15 AM Carolina Lara, ROXANA 03/07/2025 4:31 PM Signed Much confusion with this patient. Attempted to reach pt again today with no answer. When this nurse spoke with pt last evening, he wanted to keep Robyn Taylor as his PCP. Someone somewhere told him that he needed to have a doctor in [place] to handle his Coumadin/anticoagulation. Pt has been coming to the Coumadin Clinic here in [place] and seeing nurse Alyx. Talked with Alyx and she states that pt's PCP had referred pt to the [facility] pharmacy and that is who is managing pt's Coumadin/anticoagulation in coordination with Aylx. Pt does not need any other provider to monitor anticoagulation/Coumadin. Pt's PCP will remain Robyn Taylor and he can continue to come and have his INRs done with Alyx at the [place] [facility] and have his anticoagulation/Coumadin monitored by the [facility] pharmacy. Pt does NOT need to establish with any other providers here in [place] and does not need to see Dr. Renay Garrett anymore. LM on pt's cell that as we discussed last evening, he can keep his current PCP Robyn Taylor. Attempted to contact her office several times throughout the day but never got to speak with anyone-no matter which number we hit, [facility] Will route this msg to that office to hopefully clarify that pt does not need to establish with anyone else at this time or see Dr. Garrett anymore. Robyn Taylor APRN.AMBULANCE ATTENDANT 03/07/2025 7:59 PM Signed Carolina: Thank you for your message. The office number is [phone] option 4 to reach receptionist airline lounge. Colleen: Please attempt to notify patient of above information since Carolina was unable to reach him. If unable to reach patient, please send letter. He may cancel his February 2026 well visit scheduled with Dr. Renay Garrett in [place] if he would like me to remain his PCP. Thank you. Robyn Taylor APRN.Colleen Wade LPN 03/08/2025 10:57 AM Signed I spoke with patient Papi today and advised him of all information regarding keeping Robyn Taylor APRN.CNP as his primary care provider and continuing INR testing at the [place] [facility]. Papi is agreeable to all. The February 2026 appointment has been cancelled. Colleen Hoffman LPN March 08, 2025 10:55 AM Robyn Taylor APRN.CNP 03/08/2025 12:32 PM Signed Thank you! DARYN Pablo Sara, RPh 03/08/2025 5:33 PM Signed Per [facility]: Table 24. Target INR by Indication Antiphospholipid [...] hypercoagulable conditions) or an older-generation mechanical (e.g., [id number]). INR goal of 2.0-3.0 for patient is appropriate given no other reported risk factors. Will confirm goal INR with cardiology and referring. Jaelyn Black, Robyn Lincoln APRN.CNP 03/09/2025 6:17 PM Addendum Wolfgang Jones! I discussed goal INR with patient during our recent office visit and asked him to verify this with his conduit installer Dr. Erin Morris ([facility]) at upcoming visit on 03/15. Per documentation from recent hospitalization for valve replacement surgery on 12/25, goal INR is 2.0 - 3.0 (Target 2.5) per note entered by Emmett Angel RPh on 12/25. His valve is mechanical but does not have metal leaflets (Mechanical [place] - [address] [employer] [employer]), so this range would be appropriate from my understanding. Si (more content not included)... Normal [facility] CNPN Normal [facility] INR (POC)on 03-07-2025 INR Coag (PPP) [Relative time] 2.0 {INR} High 0.8 - 1.2 [facility] Internal Quality Check Acceptable [facility] Interpretation and review of laboratory results Abnormal [facility] Location:[facility], [address] [place], [place], [id number] [place] [address] [facility] 03-04-2025 CAROLIN Nurse Triage (KULWINDER ) LUISITO ZHONG ([id number]) 1980 M [facility] Date Time Provider Department 03/04/25 VICTORINA JUARES During your visit today, we recorded the following information about you: Victorina Juares RN 03/04/2025 4:06 PM Signed Patient requesting refill of inhaler Anoro to [facility], stating this has helped his symptoms previously and his breathing has not returned to 100% since. ROXANA Levin Kristin K, APRN.AMBULANCE ATTENDANT 03/04/2025 5:05 PM Signed Yes please triage! I do not recall ever discussing this with him previously. Looks like Sruthi Daily had last sent Anoro to tx chronic [...] 03/05/2025 7:56 AM Signed Called patient at [phone] to triage. No answer. Left voicemail with [...] pump with home settings Home pump settings: [employer] 780G, Humalog Basal Rate: 00:00 = 1.25 [...] Post-op pain [G89.18] (more content not included)... [facility] CNOVon 02-28-2025 CNOV Office Visit (JARAD LEE) LUISITO ZHONG ([id number]) 1980 M [facility] Date Time Provider Department 02/28/25 11:30 AM [...] clean since 06/21/2018. Went to treatment at [facility] for 9 months Mitral regurgitation Murmur Pleural [...] units pe (more content not included)... Normal [facility] CNOVon 02-27-2025 CNOV Normal [facility] CNPNon 02-27-2025 CNPN Normal [facility] Relevant diagnostic tests/la boratory data Narrativeon 02-21-2025 Fall risk assessment no BELINDA [employer] Work Phone: MEDS REVIEW Documentation of cur rent medications (procedure) [employer] Work Phone: MEDS REVIEWD Medications reviewed with changes NPM Work Phone: MRI HX of the cervical spin e on 01/16/2025 at [facility]. Work Phone: XRAY HX of the cervical spin e on 12/12/2024 at [facility]. Work Phone: [facility] 02-19-2025 CNPN Telephone (AGKYLEACC) LUISITO ZHONG ([id number]) 1980 M T Date Time Provider Department 02/19/25 JOSE ELIAS FISHER During your visit today, we recorded the following information about you: Betty Hassan 02/19/2025 2:13 PM Signed new pt internal referral from Robyn Taylor APRN.CNP for PVD (Numbness of right foot, Type [...] Cmt: appt Prescriptions as of 02/19/2025 - DEXCOM G7 [...] 02/07/2024 02/10/2024 (more content not included)... Normal [facility] CNPN Telephone (FAMMAS) LUISITO ZHONG ([id number]) 1980 M T Date Time Provider Department 02/19/25 ROBYN TAYLOR FAMRMAIRO During your visit today, we recorded the following information about you: Stacia Valdivia MA 02/19/2025 9:02 AM Signed Items addressed in this encounter: Fax/Forms Vascular referral faxed to Vascular referral info given via [employer] Able to close encounter. Stacia Valdivia MA February 19, 2025 8:57 AM 8:57 AM Allergies As of Date: 02/19/2025 Noted Allergy Reaction HYDROMORPHONE 06/18/2019 9 - Itching TRAMADOL 10/27/2021 16 - Unknown Comments: Burning skin Date Reviewed: 02/13/2025 Reviewed by: Colleen Hoffman LPN - Fully Assessed Reason for Visit: Vascular referral faxed to Vascular [Other] Prescriptions as of 02/19/2025 - DEXCOM [...] anion gap metabo (more content not included)... [facility] CNPN Telephone (FAMMAS) LUISITO ZHONG ([id number]) 1980 M [facility] Date Time Provider Department 02/19/25 ROBYN TAYLOR During your visit today, we recorded the following information about you: Stacia Valdivia MA 02/19/2025 9:04 AM Signed Items addressed in this encounter: Keelr Encounter referral info given via [employer] Able to close encounter. Stacia Valdivia MA February 19, 2025 9:03 AM 9:03 AM Allergies As of Date: 02/19/2025 Noted Allergy Reaction HYDROMORPHONE 06/18/2019 9 - Itching TRAMADOL 10/27/2021 16 - Unknown Comments: Burning skin Date Reviewed: 02/13/2025 Reviewed by: Colleen Hoffman LPN - Fully Assessed Reason for Visit: referral info given via [employer] [Other] Prescriptions as of 02/19/2025 - [employer] G7 SENSOR xenia - ferrous sulfate 325 [...] Lactic acidosis [E87.20] more content not included)... [facility]) LUISITO ZHONG ([id number]) 1980 M [facility] Date Time Provider Department 02/18/25 ROBYN TAYLOR During your visit today, we recorded the following information about you: Colleen Hoffman LPN 02/18/2025 1:46 PM Signed Referral faxed to [facility]#[phone] fax#[phone]. I left this information for patient in a message on his voice mail. Colleen Hoffman LPN February 18, 2025 1:43 PM Allergies As of Date: 02/18/2025 Noted Allergy Reaction HYDROMORPHONE 06/18/2019 9 - Itching TRAMADOL 10/27/2021 16 - Unknown Comments: Burning skin Date Reviewed: 02/13/2025 Reviewed by: Colleen Hoffman LPN - Fully Assessed Reason for Visit: Referral Information [4705] Cmt: Neurology Prescriptions as of 02/18/2025 - [...] [E10.10] 02/06/2024 02/10/2024 Acute hypoxemic respiratory failure ([facility]) [J96.*02/07/2024 02/10/2024 Severe sepsis ([facility]) [A41.9, R65.20] 02/07/2024 02/10/2024 High anion gap metabolic acidosis [E87.29] 02/07/2024 02/10/2024 Lactic acidos (more content not included)... [facility] CNPN Telephone (FAMMAS) LUISITO ZHONG ([id number]) 1980 M [facility] Date Time Provider Department 02/18/25 ROBYN TAYLOR During your visit today, we recorded the following information about you: Eliza Hopkins 02/18/2025 3:34 PM Signed Patient called office wanted to know if the referral to [facility] has been done, as previous referral was sent to [facility] [place] in which they do not accept his insurance. Stacia Banks MA 02/19/2025 9:05 AM Signed Items addressed in this encounter: Telephone Encounter Vascular referral faxed, pt notified via [employer] Able to close encounter. Stacia Valdivia MA February 19, 2025 9:04 AM 9:04 AM Allergies As of Date: 02/18/2025 Noted Allergy Reaction HYDROMORPHONE 06/18/2019 9 - Itching TRAMADOL 10/27/2021 16 - Unknown Comments: Burning skin Date Reviewed: 02/13/2025 Reviewed by: Colleen Hoffman LPN - Fully Assessed Reason for Visit: Appointment [186] Referral Information [0033] Prescriptions as of 02/19/2025 - DEXCOM G7 [...] deficiency [E55.9] 01/07/2023 (more content not included)... [facility] 02-14-2025 [facility]) LUISITO ZHONG ([id number]) 1980 M T Date Time Provider Department 02/14/25 ROBYN TAYLOR During your visit today, we recorded the following information about you: Stacia Valdivia MA 02/14/2025 10:59 AM Signed Items addressed in this encounter: Fax/Forms Vascular referral faxed to [facility] [phone] Faxed via [employer], fax confirmation received Able [...] (HCC) [A41.9, R65.20] (more content not included)... [facility] CNPN Telephone ([employer]) LUISITO ZHONG ([id number]) 1980 [facility] Date Time Provider Department 02/14/25 ROBYN TAYLOR During your visit today, we recorded the following information about you: Stacia Valdivia MA 02/14/2025 11:48 AM Signed Items addressed in this encounter: Telephone Encounter referral info given via [employer] Able to close encounter. Stacia Valdivia MA February 14, 2025 11:00 AM 11:00 AM Allergies As of Date: 02/14/2025 Noted Allergy Reaction HYDROMORPHONE 06/18/2019 9 - Itching TRAMADOL 10/27/2021 16 - Unknown Comments: Burning skin Date Reviewed: 02/13/2025 Reviewed by: Colleen Hoffman LPN - Fully Assessed Reason for Visit: referral info given via [employer] [Other] Prescriptions as of 02/14/2025 - DEXCOM [...] acidosis [E87.20] 01/10 (more content not included)... [facility] CNOVon 02-13-2025 CNOV Office Visit (FAMMAS ) LUISITO ZHONG ([id number]) 1980 M [facility] Date Time Provider Department 02/13/25 4:00 PM ROBYN TAYLOR During your visit today, we recorded the following information about you: Temperature Pulse Respiration Blood pressure 98.8 degrees 95/minute 16/minute 122/70 Weight Height 109.9 kg 1.93 m Colleen Hoffman LPN 02/13/2025 5:12 PM Karlie Turpin is here today to discuss referrals Patient filed a disability claim recently He spoke to an ornamental metal erector and he suggested patient see some specialists [...] February 13, 2025 4:05 PM Robyn Taylor APRN.AMBULANCE ATTENDANT 02/13/2025 4:45 PM Addendum - A neuropsychological testing consult has been sent to [facility] in [place] to assess your cognitive concerns and diabetic neuropathy. You should hear from them to schedule within 2 weeks. If you haven?t been contacted, contact [facility] directly at [phone]; their office is at [address] [place] [address]. - A vascular medicine referral has been placed with [facility] to evaluate your blood flow and circulation. They will contact you to schedule--ask about appointment timing when they call. - Before your EMG at [facility], check with Dr. Huerta to see if [...] exercise recommended. Please call the office at [phone] Option 4 or send a direct message via Keelr with any questions related to your visit today. Time throughout the day is reserved for patients with scheduled appointments. Please kindly allow 2-3 business days for staff to respond to phone calls or Keelr messages. Robyn Taylor APRN.QAMAR 02/13/2025 5:12 PM Signed This note was created using Mechanology technology with patient consent. Subjective Luisito Zhong [...] the end of the month, ordered by synoptic meteorologist Dr. Desai. - Has a virtual appointment with neuromuscular specialist Dr. Marysol Cardoza on 03/12. Diabetes: - Managed by synoptic meteorologist Dr. Desai of [facility]. - Recent focus on thyroid levels during last visit. - Scheduled to see Dr. Desai again in a month. Aortic Valve Replacement: - Recent aortic valve replacement surgery. - Follow-up appointment with conduit installer Dr. Morris at [facility] on 03/15. - Reports ongoing fatigue and dyspnea at baseline. - Recent chest X-ray showed no acute abnormalities and resolved pleural effusion. - Following with [facility] for warfarin management. - Has an upcoming appointment with a new PCP, Dr. Renay Brand (more content not included)... Normal [facility] INR (POC)on 02-06-2025 INR Coag (PPP) [Relative time] 2.4 {INR} High 0.8 - 1.2 [facility] Internal Quality Check Acceptable [facility] Interpretation and review of laboratory results Abnormal [facility] Location:[facility], [address] [place] [address], [place], [address] [facility]INT [facility] CARE [facility] XR CHEST 2V FRONTAL/LATon XR CHEST 2V FRONTAL/LAT Normal [facility] XR Chest PA and Lateralon IMPRESSION: No acute radiographic abnormality. Cage Cashier: BOYD Transcribe Date/Time: Feb 06 2025 5:18P Dictated by : RAMYA CHOW MD This examination was interpreted and the report reviewed and electronically signed by: RAMYA CHOW MD on Feb 06 2025 5:25PM [facility] DIVISION OF RADIOLOGY * * *Final Report* [...] mild degenerative changes. DIVISION OF RADIOLOGY Provider, Deng Quintero [facility] - 02/06/2025 * * *Final Report* * [...] changes. IMPRESSION IMPRESSION: No acute radiographic abnormality. Cage Cashier: PSCB Transcribe Date/Time: Feb 06 2025 5:18P Dictated by : RAMYA CHOW MD This examination was interpreted and the report reviewed and electronically signed by: RAMYA CHOW MD on Feb 06 2025 5:25PM EST [facility] Radiology Study observation (narrative) [facility] XR Chest PA and LateralOrder ed By: Ccf Provider on 02-06-2025 [facility] LUISITO ZHONG ([id number]) 1980 [facility] Date Time Provider Department 01/28/25 ROBYN TAYLOR FAMVAShelli During your visit today, we recorded the [...] abuse (HCC) [F (more content not included)... [facility] CNOVon 01-24-2025 CNOV Office Visit (FAMMAS ) LUISITO ZHONG ([id number]) 1980 M [facility] Date Time Provider Department 01/24/25 1:40 PM [facility] During your visit today, we recorded the following information about you: Temperature Pulse Respiration Blood pressure 99.4 degrees 110/minute 16/minute 120/74 Weight Height 107 kg 1.93 m Colleen Hoffman LPN 02/05/2025 1:40 AM Signed Papi is here today for a follow up for his chronic health conditions and to review his chest xray He was unable to get Xray done yesterday in [place] because the Xray machine was down He is also here to review his recent chest Xray Patient is going to a Coumadin Clinic in [place] and does not need Robyn to manage his therapy he had an INR test done yesterday and it was 2.8 Patient says he has had a headache over the past few days Patient's temperature is elevated at 99.5 degrees F Recheck 99.8 degrees F No refills needed Colleen Hoffman LPN January 24, 2025 1:34 PM Robyn Taylor APRN.AMBULANCE ATTENDANT 02/05/2025 1:40 AM Signed This note was created using Mechanology technology with patient consent. Subjective Luisito Zhong [...] for appointment scheduling. - Follow-up appointment at [facility] scheduled for 90-day graeme, including a [...] Undergoing physical therapy. - Follow-up appointment with homeland security program specialist Dr. Kaur at [facility] scheduled for February 06. Anemia: - Recent [...] clean since 06/21/2018. 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 Tetrahydrocannabinol (THC) use disorder, mild, in sustained remission, in controlled environment, abuse Type 1 diabetes mellitus with diabetic polyneuropathy ([facility]) ACTIVE PROBLEM LIST Impingement Syndrome of Right Shoulder Type 1 Diabetes Mellitus With Diabetic Polyneuropathy ([facility]) Acquired Hypothyroidism Former Smoker Subaortic Membrane (Hcc) [...] Aortic Valve With Regurgitation Postoperative Pulmonary Edema ([facility]) S/P Avr (Aortic Valve Replacement) Nonrheumatic Aortic Valve Stenosis Coagulopathy (Hcc) Stress Hyperglycemia Type 2 Diabetes Mellitus Without Complication, With Long-Term Current Use of Insulin ([facility]) Anticoagulation Management Encounter Type 1 Diabetes Mellitus With Hypergl (more content not included)... Normal [facility] INR (POC)on 01-23-2025 INR Coag (PPP) [Relative time] 2.8 {INR} High 0.8 - 1.2 [facility] Internal Quality Check Acceptable [facility] Interpretation and review of laboratory results Abnormal [facility] Location:[facility], [address] [place] [address], [place], [address] [facility] CNPNon 01-21-2025 QAMARN Telephone (TERE) LUISITO ZHONG ([id number]) 1980 M T Date Time Provider Department 01/21/25 ROBYN TAYLOR During your visit today, we recorded the following information about you: Colleen Hoffman LPN 01/21/2025 5:12 PM Signed Per Robyn Taylor APRN.CNP regarding patient's recent test results: Please inform patient A1c is stable at 6.4%. Ensure he has secured an appointment with endocrinology in [place] (referred on 01/10). Cholesterol also stable. Continue [...] now established with the coumadin clinic in [place] and most recent INR is in range [...] and CXR results in detail. Robyn Taylor, COVER OPERATOR.AMBULANCE ATTENDANT I attempted to call patient Luisito. No [...] 1 uni (more content not included)... Normal [facility] Inital Evaluation (1) - PTon 01-17-2025 Inital Evaluation (1) - PT [facility] Physical Therapy [facility] [address] [facility] [place] [address] / REHABILITATION SERVICES INITIAL EVALUATION MR#: [id number] Acct: [id number] Name: LUISITO ZHONG Rep #: [id number] : 1980 44 From: Kahlil Siegel DPT, OCS, CSCS Referring Dr.: Dr. Freddy Mujica MD Status: REG R Insurance: [facility] SELF PAY INSURANCE Patient's Visit Information Visit Information Visit Information: LUISITO ZHONG is a 44 year old M referred to Physical Therapy by Dr. Freddy Mujica MD with a diagnosis of B hip pain, neck pain. Date of Evaluation: 01/17/25 Physical Therapist: Kahlil Siegel DPT, OCS, CSCS Visit Plan Frequency: 2x [...] tissue mobilization (more content not included)... Normal [facility] Magnetic resonance imaging r eportOrdered By: Kaushik Houston on 01-17-2025 Study report [facility] Imaging Services [address] [place] [address] Spine Cervical (Routine) MR#: [id number] Acct: [id number] Name: LUISITO ZHONG Rep #: [id number] : 1980 M 44 From: Manas Houston MD PCP: ROSCOE UMANZOR Status: REG CLI Study:Spine Cervical (Routine) Date of Exam: 01/16/25 Exam# [id number] Ordering Dr: Olga Mujica MD PROCEDURE: SPINE [...] neural foraminal compromise as detailed. Reading [facility] CC: Dr. Freddy Mujica MD; ROSCOE UMANZOR ~ Cage Cashier: Signed [facility] 25([place])D3 [facility] 25-hydroxyvitamin D3 [Mass/Vol] 44.6 ng/mL Normal 31.0-80.0 [facility] Comment on above: Order Comment: Speci men Type: BLOOD SPECIMENOrdering Facility: [facility] Address: [address] [place] [address] Result Comment: Clas sification of 25 [place] Vitamin D status:Deficiency/Insufficiency: < or = 30 ng/ml.Sufficiency/Optimal Levels: 31-80 ng/mLToxicity: > 100 ng/mL.Test performed by chemiluminescent immunoassay. Performed By: #### 1 989-3 ####[facility] LABCLIA [id number] [place] [address] [place] ALBUMIN/CREATININE RATIO, UR INEon 01-16-2025 Albumin DL <= 20 mg/L (U) [Mass/Vol] mg/dL Normal [facility] Comment on above: Order Comment: Speci men Type: URINE SPECIMENOrdering Facility: [facility] Address: [address] [place] [address] Performed By: #### U ACR ####[facility] LABCLIA [id number] [place] [address] [place] Albumin/Creatinine (U) [Mass ratio] <12 Normal <30 [facility] Comment on above: Order Comment: Speci men Type: URINE SPECIMENOrdering Facility: [facility] Address: [address] [place] [address] Result Comment: Adul t Male and Female Nephrotic Criteria:<30 mg/g is considered normal to mildly [id number] mg/g is considered moderately increased>300 mg/g is considered severely increasedKDIGO. (2013). KDIGO 2012 Clinical Practice Guideline for the Evaluation and Management of Chronic Kidney Disease. Official Journal of the International Society of Nephrology, 3(1), 1-150. Performed By: #### U ACR ####[facility] LABCLIA [id number] [address], [place] [address] [place] Creatinine (U) [Mass/Vol] 101.3 mg/dL Normal 20.0-300.0 [facility] Comment on above: Order Comment: Speci men Type: URINE SPECIMENOrdering Facility: [facility] Address: [address] [place] [address] Performed By: #### U ACR ####[facility] LABCLIA [id number] [address], [place] [address] [place] CBC W Auto Differential pane l (Bld)on 01-16-2025 Basophils (Bld) [#/Vol] 0.13 10*3/uL High <0.11 [facility] Comment on above: Order Comment: Speci men Type: BLOOD SPECIMENOrdering Facility: [facility] Address: [address] [place] [address] Performed By: #### 5 7021-8 ####[facility] LABCLIA [id number] [place] [address] [place] Basophils/100 WBC (Bld) 2.0 % Normal [facility] Comment on above: Order Comment: Speci men Type: BLOOD SPECIMENOrdering Facility: [facility] Address: [address] [place] [address] Performed By: #### 5 7021-8 ####[facility] LABCLIA [id number] [place] [address] [place] Differential cell count method Nom (Bld) Auto Normal [facility] Comment on above: Order Comment: Speci men Type: BLOOD SPECIMENOrdering Facility: [facility] Address: [address] [place] [address] Performed By: #### 5 7021-8 ####[facility] LABCLIA [id number] [place] [address] [place] Eosinophils (Bld) [#/Vol] 0.42 10*3/uL Normal <0.46 [facility] Comment on above: Order Comment: Speci men Type: BLOOD SPECIMENOrdering Facility: [facility] Address: [address] [place] [address] Performed By: #### 5 7021-8 ####[facility] LABCLIA [id number] [facility] [place] [address] [place] Eosinophils/100 WBC (Bld) 6.3 % Normal [facility] Comment on above: Order Comment: Speci men Type: BLOOD SPECIMENOrdering Facility: [facility] Address: [address] [place] [address] Performed By: #### 5 7021-8 ####[facility] LABCLIA [id number] [facility] [address], [place] [address] [place] Erythrocyte distribution width (RBC) [Ratio] 12.7 % Normal 11.5-15.0 [facility] Comment on above: Order Comment: Speci men Type: BLOOD SPECIMENOrdering Facility: [facility] Address: [address] [place] [address] Performed By: #### 5 7021-8 ####[facility] LABCLIA [id number] [address] [place] Hematocrit (Bld) [Volume fraction] 36.9 % Low 39.0-51.0 [facility] Comment on above: Order Comment: Speci men Type: BLOOD SPECIMENOrdering Facility: [facility] Address: [address] [place] [address] Performed By: #### 5 7021-8 ####[facility] LABCLIA [id number] [facility] [place] [address] [place] Hemoglobin (Bld) [Mass/Vol] 11.9 g/dL Low 13.0-17.0 [facility] Comment on above: Order Comment: Speci men Type: BLOOD SPECIMENOrdering Facility: [facility] Address: [address] [place] [address] Performed By: #### 5 7021-8 ####[facility] LABCLIA [id number] [address], [place] [address] [place] Immature granulocytes (Bld) [#/Vol] 10*3/uL Normal <0.10 [facility] Comment on above: Order Comment: Speci men Type: BLOOD SPECIMENOrdering Facility: [facility] Address: [address] [place] [address] Performed By: #### 5 7021-8 ####[facility] LABCLIA [id number] [address], [place] [address] [place] Immature granulocytes/100 WBC (Bld) 0.2 % Normal [facility] Comment on above: Order Comment: Speci men Type: BLOOD SPECIMENOrdering Facility: [facility] Address: [address] [place] [address] Performed By: #### 5 7021-8 ####[facility] LABCLIA [id number] [address], [place] [address] [place] Lymphocytes (Bld) [#/Vol] 1.81 10*3/uL Normal 1.00-4.00 [facility] Comment on above: Order Comment: Speci men Type: BLOOD SPECIMENOrdering Facility: [facility] Address: [address] [place] [address] Performed By: #### 5 7021-8 ####[facility] LABCLIA [id number] [address], [facility] [place] Lymphocytes/100 WBC (Bld) 27.2 % Normal [facility] Comment on above: Order Comment: Speci men Type: BLOOD SPECIMENOrdering Facility: [facility] Address: [address] [place] [address] Performed By: #### 5 7021-8 ####[facility] LABCLIA [id number] [address], [facility] [place] MCH (RBC) [Entitic mass] 28.5 pg Normal 26.0-34.0 [facility] Comment on above: Order Comment: Speci men Type: BLOOD SPECIMENOrdering Facility: [facility] Address: [address] [place] [address] Performed By: #### 5 7021-8 ####[facility] LABCLIA [id number] [place] [address] [place] MCHC (RBC) [Mass/Vol] 32.2 g/dL Normal 30.5-36.0 [facility] Comment on above: Order Comment: Speci men Type: BLOOD SPECIMENOrdering Facility: [facility] Address: [address] [place] [address] Performed By: #### 5 7021-8 ####[facility] LABIA [id number] [place] [address] [place] MCV (RBC) [Entitic vol] 88.3 fL Normal 80.0-100.0 [facility] Comment on above: Order Comment: Speci men Type: BLOOD SPECIMENOrdering Facility: [facility] Address: [address] [place] [address] Performed By: #### 5 7021-8 ####[facility] LABIA [id number] [place] [address] [place] Monocytes (Bld) [#/Vol] 0.67 10*3/uL Normal <0.87 [facility] Comment on above: Order Comment: Speci men Type: BLOOD SPECIMENOrdering Facility: [facility] Address: [address] [place] [address] Performed By: #### 5 7021-8 ####[facility] LABCLIA [id number] [address] [place] Monocytes/100 WBC (Bld) 10.1 % Normal [facility] Comment on above: Order Comment: Speci men Type: BLOOD SPECIMENOrdering Facility: [facility] Address: [address] [place] [address] Performed By: #### 5 7021-8 ####[facility] LABCLIA [id number] [place] [address] [place] Neutrophils (Bld) [#/Vol] 3.62 10*3/uL Normal 1.45-7.50 [facility] Comment on above: Order Comment: Speci men Type: BLOOD SPECIMENOrdering Facility: [facility] Address: [address] [place] [address] Performed By: #### 5 7021-8 ####[facility] LABCLIA [id number] [place] [address] [place] Neutrophils/100 WBC (Bld) 54.2 % Normal [facility] Comment on above: Order Comment: Speci men Type: BLOOD SPECIMENOrdering Facility: [facility] Address: [address] [place] [address] Performed By: #### 5 7021-8 ####[facility] LABCLIA [id number] [place] [address] [place] Nucleated RBC (Bld) [#/Vol] 10*3/uL Normal <0.01 [facility] Comment on above: Order Comment: Speci men Type: BLOOD SPECIMENOrdering Facility: [facility] Address: [address] [place] [address] Performed By: #### 5 7021-8 ####[facility] LABCLIA [id number] [place] [address] [place] Nucleated RBC/100 WBC (Bld) [Ratio] 0.0 /100 WBC Normal [facility] Comment on above: Order Comment: Speci men Type: BLOOD SPECIMENOrdering Facility: [facility] Address: [address] [place] [address] Performed By: #### 5 7021-8 ####[facility] LABCLIA [id number] [address] [address] [place] Platelet mean volume (Bld) [Entitic vol] 9.1 fL Normal 9.0-12.7 [facility] Comment on above: Order Comment: Speci men Type: BLOOD SPECIMENOrdering Facility: [facility] Address: [address] [place] [address] Performed By: #### 5 7021-8 ####[facility] LABCLIA [id number] [address], [facility] [place] Platelets (Bld) [#/Vol] 476 10*3/uL High 150-400 [facility] Comment on above: Order Comment: Speci men Type: BLOOD SPECIMENOrdering Facility: [facility] Address: [address] [place] [address] Performed By: #### 5 7021-8 ####[facility] LABCLIA [id number] [place] [address] [place] RBC (Bld) [#/Vol] 4.18 10*6/uL Low 4.20-6.00 [facility] Comment on above: Order Comment: Speci men Type: BLOOD SPECIMENOrdering Facility: [facility] Address: [address] [place] [address] Performed By: #### 5 7021-8 ####[facility] LABIA [id number] [address], [facility] [place] WBC (Bld) [#/Vol] 6.66 10*3/uL Normal 3.70-11.00 [facility] Comment on above: Order Comment: Speci men Type: BLOOD SPECIMENOrdering Facility: [facility] Address: [address] [place] [address] Performed By: #### 5 7021-8 ####[facility] LABCLIA [id number] [address] [place] [address] [place] CNPNon 01-16-2025 CNPN Normal [facility] metabolic 2000 panelon 01-16-2025 Albumin [Mass/Vol] 3.6 g/dL Low 3.9-4.9 [facility] Comment on above: Order Comment: Speci men Type: BLOOD SPECIMENOrdering Facility: [facility] Address: [address] [place] [address] Performed By: #### 2 4323-8, 3024-7, 17778-9, 44778-0 ####[facility] LABCLIA [id number] [place] [address] [place] ALP [Catalytic activity/Vol] 101 U/L Normal 38-113 [facility] Comment on above: Order Comment: Speci men Type: BLOOD SPECIMENOrdering Facility: [facility] Address: [address] [place] [address] Performed By: #### 2 4323-8, 3024-7, 43570-5, 29699-2 ####[facility] LABCLIA [id number] [place] [address] [place] ALT [Catalytic activity/Vol] 24 U/L Normal 10-54 [facility] Comment on above: Order Comment: Speci men Type: BLOOD SPECIMENOrdering Facility: [facility] Address: [address] [place] [address] Performed By: #### 2 4323-8, 3024-7, 84580-7, 71446-4 ####[facility] LABCLIA [id number] [place] [address] [place] Anion gap [Moles/Vol] 8 mmol/L Normal 8-15 [facility] Comment on above: Order Comment: Speci men Type: BLOOD SPECIMENOrdering Facility: [facility] Address: [address] [place] [address] Performed By: #### 2 4323-8, 3024-7, 92946-3, 22080-3 ####[facility] LABCLIA [id number] [address] [address] [place] AST [Catalytic activity/Vol] 33 U/L Normal 14-40 [facility] Comment on above: Order Comment: Speci men Type: BLOOD SPECIMENOrdering Facility: [facility] Address: [address] [place] [address] Performed By: #### 2 4323-8, 3024-7, 92170-0, 43206-4 ####[facility] LABCLIA [id number] [place] [address] [place] Bilirubin [Mass/Vol] 0.4 mg/dL Normal 0.2-1.3 [facility] Comment on above: Order Comment: Speci men Type: BLOOD SPECIMENOrdering Facility: [facility] Address: [address] [place] [address] Performed By: #### 2 4323-8, 3024-7, 03984-2, 24725-5 ####[facility] LABCLIA [id number] [address] [place] Calcium [Mass/Vol] 9.3 mg/dL Normal 8.5-10.2 [facility] Comment on above: Order Comment: Speci men Type: BLOOD SPECIMENOrdering Facility: [facility] Address: [address] [place] [address] Performed By: #### 2 4323-8, 3024-7, 83386-7, 44376-8 ####[facility] LABCLIA [id number] [place] [address] [place] Chloride [Moles/Vol] 107 mmol/L Normal 98-107 [facility] Comment on above: Order Comment: Speci men Type: BLOOD SPECIMENOrdering Facility: [facility] Address: [address] [place] [address] Performed By: #### 2 4323-8, 3024-7, 19461-3, 73924-4 ####[facility] LABCLIA [id number] [place] [address] [place] CO2 [Moles/Vol] 25 mmol/L Normal 22-30 [facility] Comment on above: Order Comment: Specmolly burton Type: BLOOD SPECIMENOrdering Facility: [facility] Address: [address] [place] [address] Performed By: #### 2 4323-8, 3024-7, 24471-5, 61688-6 ####[facility] LABCLIA [id number] [place] [address] [place] Creatinine [Mass/Vol] 0.81 mg/dL Normal 0.73-1.22 [facility] Comment on above: Order Comment: Speci men Type: BLOOD SPECIMENOrdering Facility: [facility] Address: [address] [place] [address] Performed By: #### 2 4323-8, 3024-7, 06607-8, 09786-1 ####[facility] LABIA [id number] [place] [address] [place] Creatinine and Glomerular filtration rate.predicted panel (S/P/Bld) 111 mL/min/1.73m??? Normal >=60 [facility] Comment on above: Order Comment: Moses burton Type: BLOOD SPECIMENOrdering Facility: [facility] Address: [address] [place] [address] Result Comment: Rosanna mated Glomerular Filtration Rate [...] actual GFR. Performed By: #### 2 4323-8, 3024-7, 62752-0, 49051-3 ####[facility] LABCLIA [id number] [address] [address] [place] Glucose [Mass/Vol] 116 mg/dL High 74-99 [facility] Comment on above: Order Comment: Delfinai men Type: BLOOD SPECIMENOrdering Facility: [facility] Address: [address] [place] [address] Result Comment: The [place] Diabetes Association (ADA) provides guidance for cutoff [...] Standards of Medical Care in Diabetes 2016, [place] Diabetes Association. Diabetes Care. 2016.39(Suppl 1). Performed By: #### 2 4323-8, 3024-7, 50538-4, 42501-0 ####[facility] LABIA [id number] [place] [address] [place] Potassium [Moles/Vol] 4.9 mmol/L Normal 3.7-5.1 [facility] Comment on above: Order Comment: Moses burton Type: BLOOD SPECIMENOrdering Facility: [facility] Address: [address] [place] [address] Performed By: #### 2 4323-8, 3024-7, 21626-5, 71194-6 ####[facility] LABIA [id number] [place] [address] [place] Protein [Mass/Vol] 6.9 g/dL Normal 6.3-8.0 [facility] Comment on above: Order Comment: Moses burton Type: BLOOD SPECIMENOrdering Facility: [facility] Address: [address] [place] [address] Performed By: #### 2 4323-8, 3024-7, 43310-4, 15801-0 ####[facility] LABIA [id number] [place] [address] [place] Sodium [Moles/Vol] 140 mmol/L Normal 136-144 [facility] Comment on above: Order Comment: Speci men Type: BLOOD SPECIMENOrdering Facility: [facility] Address: [address] [place] [address] Performed By: #### 2 4323-8, 3024-7, 08508-2, 49697-5 ####[facility] LABIA [id number] [place] [address] [place] Urea nitrogen [Mass/Vol] 13 mg/dL Normal 9-24 [facility] Comment on above: Order Comment: Speci men Type: BLOOD SPECIMENOrdering Facility: [facility] Address: [address] [place] [address] Performed By: #### 2 4323-8, 3024-7, 04232-0, 56386-0 ####[facility] LABIA [id number] [place] [address] [place] Ferritin SerPl-mCncon 2024 Ferritin [Mass/Vol] 137.0 ng/mL Normal 30.3-565.7 [facility] Comment on above: Order Comment: Speci men Type: BLOOD SPECIMENOrdering Facility: [facility] Address: [address] [place] [address] Performed By: #### 3 016-3, 2276-4 ####[facility] LABIA [id number] [place] [address] [place] HbA1c (Bld)on 01-16-2025 Average glucose Estimated from glycated hemoglobin (Bld) [Mass/Vol] 137 mg/dL Normal [facility] Comment on above: Order Comment: Speci men Type: BLOOD SPECIMENOrdering Facility: [facility] Address: [address] [place] [address] Result Comment: eAG: (Estimated average glucose) is a calculated value from HgbA1c and is community health program representative of the average blood glucose level in the last 2-3 month period. Performed By: #### 5 5454-3 ####[facility] LABCLIA [id number] [address] [address] [place] HbA1c (Bld) [Mass fraction] 6.4 % High 4.3-5.6 [facility] Comment on above: Order Comment: Speci men Type: BLOOD SPECIMENOrdering Facility: [facility] Address: [address] [place] [address] Result Comment: [place] Diabetes Association guidelines indicate that patients with HgbA1c in the range 5.7-6.4% are at increased risk for development of diabetes, and intervention by lifestyle modification may be beneficial. HgbA1c greater or equal to 6.5% is considered diagnostic of diabetes. Performed By: #### 5 5454-3 ####[facility] LABCLIA [id number] [address] [address] [place] Iron and Iron binding capaci ty panelon 01-16-2025 Iron [Mass/Vol] 25 ug/dL Low 41-186 [facility] Comment on above: Order Comment: Speci men Type: BLOOD SPECIMENOrdering Facility: [facility] Address: [address] [place], [place] [address] Performed By: #### 2 4323-8, 3024-7, 29006-4, 06034-3 ####[facility] LABIA [id number] [address] [address] [place] Iron binding capacity [Mass/Vol] 310 ug/dL Normal 232-386 [facility] Comment on above: Order Comment: Speci men Type: BLOOD SPECIMENOrdering Facility: [facility] Address: [address] [place] [address] Performed By: #### 2 4323-8, 3024-7, 48741-9, 55650-0 ####[facility] LABCLIA [id number] [address] [address] [place] Iron/TIBC [Molar ratio] 8.1 % Low 15.0-57.0 [facility] Comment on above: Order Comment: Speci men Type: BLOOD SPECIMENOrdering Facility: [facility] Address: [address] [place] [address] Performed By: #### 2 4323-8, 3024-7, 98968-5, 97994-7 ####[facility] LABCLIA [id number] [facility] [address] [place] [address] [place] Lipid 1996 panelon 5 Cholesterol [Mass/Vol] 168 mg/dL Normal <200 [facility] Comment on above: Order Comment: Speci men Type: BLOOD SPECIMENOrdering Facility: [facility] Address: [address] [place] [address] Result Comment: <200 mg/dL, Desirable 200-239 mg/dL, Borderline high>239 mg/dL, High Performed By: #### 2 4323-8, 3024-7, 28648-7, 72152-8 ####[facility] LABCLIA [id number] [address] [place] [address] [place] Cholesterol in HDL [Mass/Vol] 54 mg/dL Normal >39 [facility] Comment on above: Order Comment: Speci men Type: BLOOD SPECIMENOrdering Facility: [facility] Address: [address] [place] [address] Result Comment: 40-5 9 mg/dL, Acceptable>59 mg/dL, High: Negative risk factor for coronary heart disease<40 mg/dL, Low: Positive risk factor for coronary heart disease Performed By: #### 2 4323-8, 3024-7, 41786-4, 10366-6 ####[facility] LABCLIA [id number] [address] [place] [address] [place] Cholesterol in LDL [Mass/Vol] 102 mg/dL High <100 [facility] Comment on above: Order Comment: Speci men Type: BLOOD SPECIMENOrdering Facility: [facility] Address: [address] [place] [address] Result Comment: <100 mg/dL, Optimal 100-129 mg/dL, Near optimal/above optimal 130-159 mg/dL, Borderline high 160-189 mg/dL, High>189 mg/dL, Very highSecondary prevention optimal LDL Cholesterol levels are recommended to be <70 mg/dLLDL cholesterol is calculated using the Rizo-NIH equation. Performed By: #### 2 4323-8, 3024-7, 47068-5, 98558-5 ####[facility] LABCLIA [id number] [facility] [address] [place] [address] [place] Cholesterol in LDL/Cholesterol in HDL [Mass ratio] 1.89 {ratio} Normal <2.54 [facility] Comment on above: Order Comment: Speci men Type: BLOOD SPECIMENOrdering Facility: [facility] Address: [address] [place] [address] Result Comment: Refe deseance:1. National Cholesterol Education Program ATP III Guideline At-A-Glance Quick Desk Reference: National Heart, Lung, and Blood [place]. National Institutes of Health. 2001: NIH Publication No. 01-3305.2. An International Atherosclerosis Society position paper: global recommendations for the management of dyslipidemia: executive summary, Atherosclerosis. 2014: 232(2):410-413. Performed By: #### 2 4323-8, 3023-7, 71383-0, 88463-6 ####[facility] LABCLIA [id number] [address] [place] [address] [place] Cholesterol in VLDL [Mass/Vol] 10 mg/dL Normal <30 [facility] Comment on above: Order Comment: Speci men Type: BLOOD SPECIMENOrdering Facility: [facility] Address: [address] [place] [id number] Performed By: #### 2 4323-8, 4-7, 52857-6, 93836-0 ####[facility] LABCLIA [id number] [facility] [id number] [address] [place] Cholesterol non HDL [Mass/Vol] 114 mg/dL Normal <130 [facility] Comment on above: Order Comment: Speci men Type: BLOOD SPECIMENOrdering Facility: [facility] Address: [address] [place] [address] Result Comment: <130 mg/dL, Optimal 130-159 mg/dL, Near optimal/above optimal 160-189 mg/dL, Borderline high 190-219 mg/dL, High>219 mg/dL, Very highSecondary prevention optimal non HDL Cholesterol levels are recommended to be <100 mg/dL Performed By: #### 2 4323-8, 3024-7, 18005-9, 80904-9 ####[facility] LABIA [id number] [place] [address] [place] Cholesterol.total/Ch olesterol in HDL [Mass ratio] 3.11 {ratio} Normal <5.10 [facility] Comment on above: Order Comment: Speci men Type: BLOOD SPECIMENOrdering Facility: [facility] Address: [address] [place] [address] Performed By: #### 2 4323-8, 3024-7, 86150-1, 01899-4 ####[facility] LABIA [id number] [place] [address] [place] FASTING TIME 12 hrs Normal [facility] Comment on above: Order Comment: Speci men Type: BLOOD SPECIMENOrdering Facility: [facility] Address: [address] [place] [address] Performed By: #### 2 4323-8, 3024-7, 95065-9, 91885-8 ####[facility] LABIA [id number] [place] [address] [place] Triglyceride [Mass/Vol] 61 mg/dL Normal <150 [facility] Comment on above: Order Comment: Speci men Type: BLOOD SPECIMENOrdering Facility: [facility] Address: [address] [place] [address] Result Comment: <150 mg/dL, Normal 150-199 mg/dL, Borderline high 200-499 mg/dL, High>499 mg/dL, Very high Performed By: #### 2 4323-8, 3024-7, 81681-9, 08486-0 ####[facility] LABIA [id number] [place] [address] [place] PT panel Coag (PPP)on 2024 INR Coag (PPP) [Relative time] 1.8 {INR} High 0.9-1.3 [facility] Comment on above: Order Comment: Specmolly burton Type: BLOOD SPECIMENOrdering Facility: [facility] Address: [address] [place] [address] Result Comment: Humaira min K Antagonist (VKA) Therapeutic Range: INR 2 to 3 (Target INR of 2.5)Note: For patients treated with VKA drugs, such as warfarin, the [place] College of Chest [employer]icians 2012 Guideline recommends [...] 2.5 to 3.5 (target INR of 3).Delores WILLIS, et al. Chest 2012, 141:7S-47SCinda RA, et al. [facility] 2017, 70: 252-289 Performed By: #### 3 4528-0 ####[facility] LABIA [id number] [address] [address] [place] PT Coag (PPP) [Time] 18.4 s High 9.7-13.0 [facility] Comment on above: Order Comment: Moses burton Type: BLOOD SPECIMENOrdering Facility: [facility] Address: [address] [place] [address] Performed By: #### 3 4528-0 ####[facility] LABIA [id number] [place] [address] [place] Spine Cervical (Routine)on 0 01-16-2025 Spine Cervical (Routine) [facility] [address] [place] [address] Spine Cervical (Routine) MR#: [id number] Acct: [id number] Name: LUISITO ZHONG Rep #: [id number] : 1980 M 44 From: Kaushik abbott MD PCP: ROSCOE UMANZOR Status: REG CLI Study: Spine Cervical (Routine) Date of Exam: Exam# [id number] Ordering Dr: Freddy Mujica MD PROCEDURE: SPINE [...] neural foraminal compromise as detailed. Reading Location: [place] [address] CC: Dr. Freddy Mujica MD; ROSCOE UMANZOR Cage Cashier: Signed Normal [facility] T4 Free SerPl-mCncon 025 Free T4 [Mass/Vol] 0.9 ng/dL Normal 0.9-1.7 [facility] Comment on above: Order Comment: Speci men Type: BLOOD SPECIMENOrdering Facility: [facility] Address: [address] [place] [address] Performed By: #### 2 4323-8, 3024-7, 22023-2, 06246-3 ####[facility] LABCLIA [id number] [place] [address] [place] TSH SerPl-aCncon 01-16-2025 TSH Qn 9.930 m[IU]/L High 0.270-4.200 [facility] Comment on above: Order Comment: Speci men Type: BLOOD SPECIMENOrdering Facility: [facility] Address: [address] [place] [address] Performed By: #### 3 016-3, 2276-4 ####[facility] LABCLIA [id number] [place] [address] [place] CNPNon 01-15-2025 CNPN Normal [facility] CNOVon 01-10-2025 CNOV Office Visit (FAMMAS ) LUISITO ZHONG ([id number]) 1980 M [facility] Date Time Provider Department 01/10/25 3:40 PM ROBYN TALYOR FAMMAS During your visit today, we recorded the [...] Redo Sternotomy, Mechanical [place] ([address] [employer]) Endocrinology - Type 1 diabetes, Acquired Hypothyroidism Patient is currently on Coumadin Therapy Range 2-3 Last INR = 1.3 on 01-07-2025 Today in Office: 1.4 Current Coumadin Dose: 2.5 mg Tuesday 5 mg Tuesday, Tuesday, Tuesday, , Patient denies missing doses of medication. Patient has history of drug and alcohol abuse. Patient would like a referral for Coumadin Clinic at [facility] on [facility]. Stephani Cox LPN January 10, 2025 3:52 PM Robyn Taylor APRN.AMBULANCE ATTENDANT 01/10/2025 4:41 PM Signed - Take Coumadin (warfarin) 5 mg by mouth once daily; refill for one month sent to [facility]. - Return in one week for a follow-up visit to review your INR, lab results, and chest x-ray. - Referral placed to the [facility] [facility]; call them to confirm the order and attend if they can see you sooner, then let us know. - Complete these tests before or at your follow-up appointment at [place] [facility] ([facility]) or your [place] facility: - CBC (complete blood count) - [...] office. - Referral sent for endocrinology in [place] (diabetes pump and thyroid management); if you haven?t been contacted within one week, call our office. - Referral sent to [facility] for general cardiology; schedule an appointment as soon as possible. - Schedule a dilated diabetic eye exam and ask your eye doctor to fax the report to [phone]. - Incorporate iron-rich foods into your diet; [...] the front of this building or any [facility] lab facility. Urgent care lab is open 7 days per week from 7 am to 8 pm on weekdays and 9 am to 5 pm on weekends with the exception of some holidays. An appointment is not necessary but can be scheduled via RacerTimest if desired. Take all medications as prescribed. Continue to follow with specialist providers. Healthy diet and regular aerobic exercise recommended. Please call the office at [phone] Option 4 or send a direct message via Keelr with any questions related to your visit today. Time throughout the day is reserved for patients with scheduled appointments. Please kindly allow 2-3 business days for staff to respond to phone calls or Keelr messages. Robyn Taylor APRN.AMBULANCE ATTENDANT 01/14/2025 1:24 AM Signed This note was created using Mechanology technology with patient consent. Subjective Luisito Zhong is a 44-year-old male with a history of aortic valve replacement, type 1 diabetes, and neuropathy, presenting for an initial visit to establish care, transitional care management with hospital follow-up after placement of mechanical aortic valve, and management of anticoagulation therapy. Anticoagulation Management: - Recent mechanical aortic valve placement on 12/25/24 [facility] per Dr. Beavers; revised from initial [...] - Managed per PCP Dr. Umanzor of [facility] (more content not included)... Normal [facility] CNPNon 01-10-2025 CNPN Normal [facility] INR (POC)on 01-10-2025 INR Coag (PPP) [Relative time] 1.4 {INR} High 0.8 - 1.2 [facility] Internal Quality Check Acceptable [facility] Interpretation and review of laboratory results Abnormal [facility] Location:[facility], [address] [place] [address], [address] [place] [address] POINT OF CARE [facility] CNPNon 01-08-2025 CNPN Normal [facility] CBC panel Auto (Bld)on 01-07 Erythrocyte distribution width (RBC) [Ratio] 12.9 % Normal 11.5-15.0 [facility] Comment on above: Order Comment: Speci men Type: BLOOD SPECIMENOrdering Facility: [facility] Address: [address] [place] [address] Performed By: #### 5 8410-2 ####[facility] LABCLIA [id number] [place] [address] [place] Hematocrit (Bld) [Volume fraction] 32.4 % Low 39.0-51.0 [facility] Comment on above: Order Comment: Speci men Type: BLOOD SPECIMENOrdering Facility: [facility] Address: [address] [place] [address] Performed By: #### 5 8410-2 ####[facility] LABIA [id number] [place] [address] [place] Hemoglobin (Bld) [Mass/Vol] 11.0 g/dL Low 13.0-17.0 [facility] Comment on above: Order Comment: Speci men Type: BLOOD SPECIMENOrdering Facility: [facility] Address: [address] [place] [address] Performed By: #### 5 8410-2 ####[facility] LABIA [id number] [address] [place] MCH (RBC) [Entitic mass] 30.0 pg Normal 26.0-34.0 [facility] Comment on above: Order Comment: Speci men Type: BLOOD SPECIMENOrdering Facility: [facility] Address: [address] [place] [address] Performed By: #### 5 8410-2 ####[facility] LABIA [id number] [place] [address] [place] MCHC (RBC) [Mass/Vol] 34.0 g/dL Normal 30.5-36.0 [facility] Comment on above: Order Comment: Speci men Type: BLOOD SPECIMENOrdering Facility: [facility] Address: [address] [place] [address] Performed By: #### 5 8410-2 ####[facility] LABIA [id number] [place] [address] [place] MCV (RBC) [Entitic vol] 88.3 fL Normal 80.0-100.0 [facility] Comment on above: Order Comment: Speci men Type: BLOOD SPECIMENOrdering Facility: [facility] Address: [address] [place] [address] Performed By: #### 5 8410-2 ####[facility] LABCLIA [id number] [address] [address] [place] Nucleated RBC (Bld) [#/Vol] 10*3/uL Normal <0.01 [facility] Comment on above: Order Comment: Speci men Type: BLOOD SPECIMENOrdering Facility: [facility] Address: [address] [place] [address] Performed By: #### 5 8410-2 ####[facility] LABCLIA [id number] [address] [place] [address] [place] Platelet mean volume (Bld) [Entitic vol] 9.1 fL Normal 9.0-12.7 [facility] Comment on above: Order Comment: Speci men Type: BLOOD SPECIMENOrdering Facility: [facility] Address: [address] [place] [address] Performed By: #### 5 8410-2 ####[facility] LABIA [id number] [place] [address] [place] Platelets (Bld) [#/Vol] 490 10*3/uL High 150-400 [facility] Comment on above: Order Comment: Speci men Type: BLOOD SPECIMENOrdering Facility: [facility] Address: [address] [place] [address] Performed By: #### 5 8410-2 ####[facility] LABCLIA [id number] [address] [address] [place] RBC (Bld) [#/Vol] 3.67 10*6/uL Low 4.20-6.00 [facility] Comment on above: Order Comment: Speci men Type: BLOOD SPECIMENOrdering Facility: [facility] Address: [address] [place] [address] Performed By: #### 5 8410-2 ####[facility] LABCLIA [id number] [place] [address] [place] WBC (Bld) [#/Vol] 9.28 10*3/uL Normal 3.70-11.00 [facility] Comment on above: Order Comment: Speci men Type: BLOOD SPECIMENOrdering Facility: [facility] Address: [address] [place] [address] Performed By: #### 5 8410-2 ####[facility] LABCLIA [id number] [place] [address] [place] CNOVon 01-07-2025 CNOV Normal [facility] Comprehensive metabolic 2000 panelon 01-07-2025 Albumin [Mass/Vol] 3.3 g/dL Low 3.9-4.9 [facility] Comment on above: Order Comment: Speci men Type: BLOOD SPECIMENOrdering Facility: [facility] Address: [address] [place] [address] Performed By: #### 2 4323-8 ####[facility] LABCLIA [id number] [place] [address] [place] ALP [Catalytic activity/Vol] 81 U/L Normal 38-113 [facility] Comment on above: Order Comment: Speci men Type: BLOOD SPECIMENOrdering Facility: [facility] Address: [address] [place] [address] Performed By: #### 2 4323-8 ####[facility] LABCLIA [id number] [place] [address] [place] ALT [Catalytic activity/Vol] 31 U/L Normal 10-54 [facility] Comment on above: Order Comment: Speci men Type: BLOOD SPECIMENOrdering Facility: [facility] Address: [address] [place] [address] Performed By: #### 2 4323-8 ####[facility] LABCLIA [id number] [facility] [address] [place] [address] [place] Anion gap [Moles/Vol] 9 mmol/L Normal 8-15 [facility] Comment on above: Order Comment: Speci men Type: BLOOD SPECIMENOrdering Facility: [facility] Address: [address] [place] [address] Performed By: #### 2 4323-8 ####[facility] LABCLIA [id number] [place] [address] [place] AST [Catalytic activity/Vol] 38 U/L Normal 14-40 [facility] Comment on above: Order Comment: Speci men Type: BLOOD SPECIMENOrdering Facility: [facility] Address: [address] [place] [address] Performed By: #### 2 4323-8 ####[facility] LABCLIA [id number] [place] [address] [place] Bilirubin [Mass/Vol] 0.5 mg/dL Normal 0.2-1.3 [facility] Comment on above: Order Comment: Speci men Type: BLOOD SPECIMENOrdering Facility: [facility] Address: [address] [place] [address] Performed By: #### 2 4323-8 ####[facility] LABCLIA [id number] [place] [address] [place] Calcium [Mass/Vol] 9.0 mg/dL Normal 8.5-10.2 [facility] Comment on above: Order Comment: Speci men Type: BLOOD SPECIMENOrdering Facility: [facility] Address: [address] [place] [address] Performed By: #### 2 4323-8 ####[facility] LABCLIA [id number] [facility] [place] [id number] [place] Chloride [Moles/Vol] 104 mmol/L Normal 98-107 [facility] Comment on above: Order Comment: Speci men Type: BLOOD SPECIMENOrdering Facility: [facility] Address: [address] [place] [address] Performed By: #### 2 4323-8 ####[facility] LABIA [id number] [place] [address] [place] CO2 [Moles/Vol] 25 mmol/L Normal 22-30 [facility] Comment on above: Order Comment: Speci men Type: BLOOD SPECIMENOrdering Facility: [facility] Address: [address] [place] [address] Performed By: #### 2 4323-8 ####[facility] LABIA [id number] [address] Creatinine [Mass/Vol] 0.93 mg/dL Normal 0.73-1.22 [facility] Comment on above: Order Comment: Speci men Type: BLOOD SPECIMENOrdering Facility: [facility] Address: [address] [place] [address] Performed By: #### 2 4323-8 ####[facility] LABIA [id number] [address] Creatinine and Glomerular filtration rate.predicted panel (S/P/Bld) 103 mL/min/1.73m??? Normal >=60 [facility] Comment on above: Order Comment: Speci men Type: BLOOD SPECIMENOrdering Facility: [facility] Address: [address] [place] [address] Result Comment: Rosanna mated Glomerular Filtration Rate [...] actual GFR. Performed By: #### 2 4323-8 ####[facility] LABCLIA [id number] [place] [id number] [place] [place] Glucose [Mass/Vol] 197 mg/dL High 74-99 [facility] Comment on above: Order Comment: Speci men Type: BLOOD SPECIMENOrdering Facility: [facility] Address: [address] [place] [address] Result Comment: The [place] Diabetes Association (ADA) provides guidance for cutoff [...] Standards of Medical Care in Diabetes 2016, [place] [employer]. Diabetes Care. 2016.39(Suppl 1). Performed By: #### 2 4323-8 ####[facility] LABCLIA [id number] [place] [address] [place] Potassium [Moles/Vol] 4.8 mmol/L Normal 3.7-5.1 [facility] Comment on above: Order Comment: Speci men Type: BLOOD SPECIMENOrdering Facility: [facility] Address: [address] [place] [address] Performed By: #### 2 4323-8 ####[facility] LABCLIA [id number] [place] [address] [place] Protein [Mass/Vol] 6.5 g/dL Normal 6.3-8.0 [facility] Comment on above: Order Comment: Speci men Type: BLOOD SPECIMENOrdering Facility: [facility] Address: [address] [place] [address] Performed By: #### 2 4323-8 ####[facility] LABCLIA [id number] [place] [address] [place] Sodium [Moles/Vol] 138 mmol/L Normal 136-144 [facility] Comment on above: Order Comment: Specmolly josephine Type: BLOOD SPECIMENOrdering Facility: [facility] Address: [address] [place] [address] Performed By: #### 2 4323-8 ####[facility] LABCLIA [id number] [address] STATES OF [facility] Urea nitrogen [Mass/Vol] 14 mg/dL Normal 9-24 [facility] Comment on above: Order Comment: Speci men Type: BLOOD SPECIMENOrdering Facility: [facility] Address: [address] [place] [address] Performed By: #### 2 4323-8 ####[facility] LABIA [id number] [address] STATES OF [place] ECG COMPLETEon 01-07-2025 ECG COMPLETE Normal [facility] PT panel Coag (PPP)on 2024 INR Coag (PPP) [Relative time] 1.3 {INR} Normal 0.9-1.3 [facility] Comment on above: Order Comment: Moses burton Type: BLOOD SPECIMENOrdering Facility: [facility] Address: [address] [place] [address] Result Comment: Humaira min K Antagonist (VKA) Therapeutic Range: INR 2 to 3 (Target INR of 2.5)Note: For patients treated with VKA drugs, such as warfarin, the [place] [employer] 2012 Guideline recommends [...] al. Chest 2012, 141:7S-47SNishimura RA, et al. [facility] 2017, 70: 252-289 Performed By: #### 3 4528-0 ####[facility] [id number] [place] [address] [place] PT Coag (PPP) [Time] 13.4 s High 9.7-13.0 [facility] Comment on above: Order Comment: Speci men Type: BLOOD SPECIMENOrdering Facility: [facility] Address: [address] [place] [address] Performed By: #### 3 4528-0 ####[facility] [id number] [place] [address] [facility] OF [place] XR CHEST 2V FRONTAL/LATon XR CHEST 2V FRONTAL/LAT Normal [facility] XR Chest PA and Lateralon IMPRESSION: See result. Cage Cashier: PSCB Transcribe Date/Time: Jan 07 2025 6:06P Dictated by : KALANI SUTHRELAND MD This examination was interpreted and the report reviewed and electronically signed by: KALANI SUTHERLAND MD on Jan 07 2025 6:07PM [facility] DIVISION OF RADIOLOGY * * *Final Report* [...] Retained epicardial wires. DIVISION OF RADIOLOGY Provider, [facility] [place] - 01/07/2025 * * *Final Report* * [...] Retained epicardial wires. IMPRESSION IMPRESSION: See result. Cage Cashier: PSCB Transcribe Date/Time: Jan 07 2025 6:06P Dictated by : KALANI SUTHERLAND MD This examination was interpreted and the report reviewed and electronically signed by: KALANI SUTHERLAND MD on Jan 07 2025 6:07PM [facility] Radiology Study observation (narrative) [facility] XR Chest PA and LateralOrder ed By: [facility] Provider on 01-07-2025 [facility] ALLIED HEALTHon 12-31-2024 ALLIED HEALTH Normal [facility] CASE MANAGEMon 12-31-2024 CASE MANAGEM Normal [facility] CBC panel Auto (Bld)on 12-31 Erythrocyte distribution width (RBC) [Ratio] 13.1 % Normal 11.5-15.0 [facility] Comment on above: Order Comment: Speci men Type: BLOOD SPECIMENOrdering Facility: [facility] Address: [address] [place] [address] Performed By: #### 5 8410-2 ####[facility] LABCLIA [id number] [place] [address] [place] Hematocrit (Bld) [Volume fraction] 34.2 % Low 39.0-51.0 [facility] Comment on above: Order Comment: Speci men Type: BLOOD SPECIMENOrdering Facility: [facility] Address: [address] [place] [address] Performed By: #### 5 8410-2 ####[facility] LABIA [id number] [place] [address] [place] Hemoglobin (Bld) [Mass/Vol] 11.5 g/dL Low 13.0-17.0 [facility] Comment on above: Order Comment: Speci men Type: BLOOD SPECIMENOrdering Facility: [facility] Address: [address] [place] [address] Performed By: #### 5 8410-2 ####[facility] LABIA [id number] [address] [place] MCH (RBC) [Entitic mass] 29.9 pg Normal 26.0-34.0 [facility] Comment on above: Order Comment: Speci men Type: BLOOD SPECIMENOrdering Facility: [facility] Address: [address] [place] [address] Performed By: #### 5 8410-2 ####[facility] LABIA [id number] [address] [place] MCHC (RBC) [Mass/Vol] 33.6 g/dL Normal 30.5-36.0 [facility] Comment on above: Order Comment: Speci men Type: BLOOD SPECIMENOrdering Facility: [facility] Address: [address] [place] [address] Performed By: #### 5 8410-2 ####[facility] LABIA [id number] [address] [place] MCV (RBC) [Entitic vol] 88.8 fL Normal 80.0-100.0 [facility] Comment on above: Order Comment: Speci men Type: BLOOD SPECIMENOrdering Facility: [facility] Address: [address] [place] [address] Performed By: #### 5 8410-2 ####[facility] LABIA [id number] [place] [address] [place] Nucleated RBC (Bld) [#/Vol] 10*3/uL Normal <0.01 [facility] Comment on above: Order Comment: Speci men Type: BLOOD SPECIMENOrdering Facility: [facility] Address: [address] [place] [address] Performed By: #### 5 8410-2 ####[facility] LABIA [id number] [place] [address] [place] Platelet mean volume (Bld) [Entitic vol] 10.2 fL Normal 9.0-12.7 [facility] Comment on above: Order Comment: Speci men Type: BLOOD SPECIMENOrdering Facility: [facility] Address: [address] [place] [address] Performed By: #### 5 8410-2 ####[facility] LABIA [id number] [place] [address] [place] Platelets (Bld) [#/Vol] 255 10*3/uL Normal 150-400 [facility] Comment on above: Order Comment: Speci men Type: BLOOD SPECIMENOrdering Facility: [facility] Address: [address] [place] [address] Performed By: #### 5 8410-2 ####[facility] LABIA [id number] [place] [address] [place] RBC (Bld) [#/Vol] 3.85 10*6/uL Low 4.20-6.00 [facility] Comment on above: Order Comment: Speci men Type: BLOOD SPECIMENOrdering Facility: [facility] Address: [address] [place] [address] Performed By: #### 5 8410-2 ####[facility] LABCLIA [id number] [place] [address] [place] WBC (Bld) [#/Vol] 8.57 10*3/uL Normal 3.70-11.00 [facility] Comment on above: Order Comment: Speci men Type: BLOOD SPECIMENOrdering Facility: [facility] Address: [address] [place] [address] Performed By: #### 5 8410-2 ####[facility] LABCLIA [id number] [place] [address] [place] Comprehensive metabolic 2000 panelon 12-31-2024 Albumin [Mass/Vol] 3.2 g/dL Low 3.9-4.9 [facility] Comment on above: Order Comment: Speci men Type: BLOOD SPECIMENOrdering Facility: [facility] Address: [address] [place] [address] Performed By: #### 2 4323-8 ####[facility] LABIA [id number] [place] [address] [place] ALP [Catalytic activity/Vol] 72 U/L Normal 38-113 [facility] Comment on above: Order Comment: Speci men Type: BLOOD SPECIMENOrdering Facility: [facility] Address: [address] [place] [address] Performed By: #### 2 4323-8 ####[facility] LABCLIA [id number] [place] [address] [place] ALT [Catalytic activity/Vol] 29 U/L Normal 10-54 [facility] Comment on above: Order Comment: Speci men Type: BLOOD SPECIMENOrdering Facility: [facility] Address: [address] [place] [address] Performed By: #### 2 4323-8 ####[facility] LABCLIA [id number] [place] [address] [place] Anion gap [Moles/Vol] 11 mmol/L Normal 8-15 [facility] Comment on above: Order Comment: Speci men Type: BLOOD SPECIMENOrdering Facility: [facility] Address: [address] [place] [id number] Performed By: #### 2 4323-8 ####[facility] LABCLIA [id number] [address] [address] [place] AST [Catalytic activity/Vol] 32 U/L Normal 14-40 [facility] Comment on above: Order Comment: Speci men Type: BLOOD SPECIMENOrdering Facility: [facility] Address: [address] [place] [address] Performed By: #### 2 4323-8 ####[facility] LABCLIA [id number] [place] [address] [place] Bilirubin [Mass/Vol] 0.6 mg/dL Normal 0.2-1.3 [facility] Comment on above: Order Comment: Speci men Type: BLOOD SPECIMENOrdering Facility: [facility] Address: [address] [place], [place] [address] Performed By: #### 2 4323-8 ####[facility] LABIA [id number] [place] [address] [place] Calcium [Mass/Vol] 8.3 mg/dL Low 8.5-10.2 [facility] Comment on above: Order Comment: Speci men Type: BLOOD SPECIMENOrdering Facility: [facility] Address: [address] [place], [place] [address] Performed By: #### 2 4323-8 ####[facility] LABCLIA [id number] [place] [address] [place] Chloride [Moles/Vol] 103 mmol/L Normal 98-107 [facility] Comment on above: Order Comment: Speci men Type: BLOOD SPECIMENOrdering Facility: [facility] Address: [address] [place], [place] [address] Performed By: #### 2 4323-8 ####[facility]CLIA [id number] [facility] [address] [address] [place] CO2 [Moles/Vol] 26 mmol/L Normal 22-30 [facility] Comment on above: Order Comment: Speci men Type: BLOOD SPECIMENOrdering Facility: [facility] Address: [address] [place] [address] Performed By: #### 2 4323-8 ####[facility] LABCLIA [id number] [facility] [address] [address] [place] Creatinine [Mass/Vol] 0.80 mg/dL Normal 0.73-1.22 [facility] Comment on above: Order Comment: Speci men Type: BLOOD SPECIMENOrdering Facility: [facility] Address: [address] [place] [address] Performed By: #### 2 4323-8 ####[facility] LABIA [id number] [address] [address] [place] Creatinine and Glomerular filtration rate.predicted panel (S/P/Bld) 111 mL/min/1.73m??? Normal >=60 [facility] Comment on above: Order Comment: Speci men Type: BLOOD SPECIMENOrdering Facility: [facility] Address: [address] [place] [address] Result Comment: Rosanna mated Glomerular Filtration Rate [...] actual GFR. Performed By: #### 2 4323-8 ####[facility] LABCLIA [id number] [facility] [address] [place] [address] [place] Glucose [Mass/Vol] 121 mg/dL High 74-99 [facility] Comment on above: Order Comment: Speci men Type: BLOOD SPECIMENOrdering Facility: [facility] Address: [address] [place] [address] Result Comment: The [place] Diabetes Association (ADA) provides guidance for cutoff [...] Standards of Medical Care in Diabetes 2016, [place] [employer]. Diabetes Care. 2016.39(Suppl 1). Performed By: #### 2 4323-8 ####[facility] LABCLIA [id number] [place] [address] [place] Potassium [Moles/Vol] 3.5 mmol/L Low 3.7-5.1 [facility] Comment on above: Order Comment: Speci men Type: BLOOD SPECIMENOrdering Facility: [facility] Address: [address] [place], [place] [address] Performed By: #### 2 4323-8 ####[facility] LABCLIA [id number] [address] [address] [place] Protein [Mass/Vol] 6.1 g/dL Low 6.3-8.0 [facility] Comment on above: Order Comment: Speci men Type: BLOOD SPECIMENOrdering Facility: [facility] Address: [address] [place] [address] Performed By: #### 2 4323-8 ####[facility] LABCLIA [id number] [address] [address] [place] Sodium [Moles/Vol] 140 mmol/L Normal 136-144 [facility] Comment on above: Order Comment: Speci men Type: BLOOD SPECIMENOrdering Facility: [facility] Address: [address] [place] [address] Performed By: #### 2 4323-8 ####[facility] LABIA [id number] [place] [address] [place] Urea nitrogen [Mass/Vol] 15 mg/dL Normal 9-24 [facility] Comment on above: Order Comment: Speci men Type: BLOOD SPECIMENOrdering Facility: [facility] Address: [address] [place] [address] Performed By: #### 2 4323-8 ####[facility] [id number] [place] [address] [place] POTASSIUMon 12-31-2024 Potassium [Moles/Vol] 3.8 mmol/L Normal 3.7-5.1 [facility] Comment on above: Order Comment: Speci men Type: BLOOD SPECIMENOrdering Facility: [facility] Address: [address] [place] [address] Performed By: #### K 1 ####[facility] [id number] [place] [address] [place] PT panel Coag (PPP)on 2024 INR Coag (PPP) [Relative time] 2.0 {INR} High 0.9-1.3 [facility] Comment on above: Order Comment: Speci men Type: BLOOD SPECIMENOrdering Facility: [facility] Address: [address] [place] [address] Result Comment: Humaira min K Antagonist (VKA) Therapeutic Range: INR 2 to 3 (Target INR of 2.5)Note: For patients treated with VKA drugs, such as warfarin, the [place] [employer] 2012 Guideline recommends [...] al. Chest 2012, 141:7S-47SNishimura RA, et al. [facility] 2017, 70: 252-289 Performed By: #### 3 4528-0, PTTAC ####[facility] LABCLIA [id number] [place] [address] [place] PT Coag (PPP) [Time] 20.9 s High 9.7-13.0 [facility] Comment on above: Order Comment: Speci men Type: BLOOD SPECIMENOrdering Facility: [facility] Address: [address] [place] [address] Performed By: #### 3 4528-0, PTTAC ####[facility] LABIA [id number] [place] [address] [place] PTT, ANTICOAGULANT THERAPYon 12-31-2024 aPTT Coag (PPP) [Time] 50.4 s High 23.0-32.4 [facility] Comment on above: Order Comment: Speci men Type: BLOOD SPECIMENOrdering Facility: [facility] Address: [address] [place] [address] Performed By: #### 3 4528-0, PTTAC ####[facility] LABIA [id number] [place] [address] [place] THERAPY NTon 12-31-2024 THERAPY NT Normal [facility] CBC panel Auto (Bld)on 12-30 Erythrocyte distribution width (RBC) [Ratio] 12.8 % Normal 11.5-15.0 [facility] Comment on above: Order Comment: Speci men Type: BLOOD SPECIMENOrdering Facility: [facility] Address: [address] [place] [address] Performed By: #### 5 8410-2 ####[facility] LABCLIA [id number] [place] [address] [place] Hematocrit (Bld) [Volume fraction] 33.8 % Low 39.0-51.0 [facility] Comment on above: Order Comment: Speci men Type: BLOOD SPECIMENOrdering Facility: [facility] Address: [address] [place] [address] Performed By: #### 5 8410-2 ####[facility] LABIA [id number] [place] [address] [place] Hemoglobin (Bld) [Mass/Vol] 11.5 g/dL Low 13.0-17.0 [facility] Comment on above: Order Comment: Speci men Type: BLOOD SPECIMENOrdering Facility: [facility] Address: [address] [place] [address] Performed By: #### 5 8410-2 ####[facility] LABIA [id number] [address] [place] MCH (RBC) [Entitic mass] 30.1 pg Normal 26.0-34.0 [facility] Comment on above: Order Comment: Speci men Type: BLOOD SPECIMENOrdering Facility: [facility] Address: [address] [place] [address] Performed By: #### 5 8410-2 ####[facility] LABIA [id number] [place] [address] [place] MCHC (RBC) [Mass/Vol] 34.0 g/dL Normal 30.5-36.0 [facility] Comment on above: Order Comment: Speci men Type: BLOOD SPECIMENOrdering Facility: [facility] Address: [address] [place] [address] Performed By: #### 5 8410-2 ####[facility] LABCLIA [id number] [place] [address] [place] MCV (RBC) [Entitic vol] 88.5 fL Normal 80.0-100.0 [facility] Comment on above: Order Comment: Speci men Type: BLOOD SPECIMENOrdering Facility: [facility] Address: [address] [place] [address] Performed By: #### 5 8410-2 ####[facility] LABCLIA [id number] [address] [address] [place] Nucleated RBC (Bld) [#/Vol] 10*3/uL Normal <0.01 [facility] Comment on above: Order Comment: Speci men Type: BLOOD SPECIMENOrdering Facility: [facility] Address: [address] [place] [address] Performed By: #### 5 8410-2 ####[facility] LABIA [id number] [place] [address] [place] Platelet mean volume (Bld) [Entitic vol] 10.0 fL Normal 9.0-12.7 [facility] Comment on above: Order Comment: Speci men Type: BLOOD SPECIMENOrdering Facility: [facility] Address: [address] [place] [address] Performed By: #### 5 8410-2 ####[facility] LABIA [id number] [place] [address] [place] Platelets (Bld) [#/Vol] 235 10*3/uL Normal 150-400 [facility] Comment on above: Order Comment: Speci men Type: BLOOD SPECIMENOrdering Facility: [facility] Address: [address] [place] [address] Performed By: #### 5 8410-2 ####[facility] LABIA [id number] [place] [address] [place] RBC (Bld) [#/Vol] 3.82 10*6/uL Low 4.20-6.00 [facility] Comment on above: Order Comment: Speci men Type: BLOOD SPECIMENOrdering Facility: [facility] Address: [address] [place] [address] Performed By: #### 5 8410-2 ####[facility] LABCLIA [id number] [place] [address] [place] WBC (Bld) [#/Vol] 7.40 10*3/uL Normal 3.70-11.00 [facility] Comment on above: Order Comment: Speci men Type: BLOOD SPECIMENOrdering Facility: [facility] Address: [address] [place] [address] Performed By: #### 5 8410-2 ####[facility] LABCLIA [id number] [place] [address] [place] CONSULT PROGon 12-30-2024 CONSULT PROG Normal [facility] CTA CHEST (GATED) W IVCONon 12-30-2024 CTA CHEST (GATED) W IVCON Normal [facility] Comprehensive metabolic 2000 panelon 12-30-2024 Albumin [Mass/Vol] 3.3 g/dL Low 3.9-4.9 [facility] Comment on above: Order Comment: Speci men Type: BLOOD SPECIMENOrdering Facility: [facility] Address: [address] [place] [address] Performed By: #### 2 4323-8 ####[facility] LABCLIA [id number] [place] [address] [place] ALP [Catalytic activity/Vol] 78 U/L Normal 38-113 [facility] Comment on above: Order Comment: Speci men Type: BLOOD SPECIMENOrdering Facility: [facility] Address: [address] [place], [place] [address] Performed By: #### 2 4323-8 ####[facility] LABIA [id number] [place] [address] [place] ALT [Catalytic activity/Vol] 35 U/L Normal 10-54 [facility] Comment on above: Order Comment: Speci men Type: BLOOD SPECIMENOrdering Facility: [facility] Address: [address] [place] [address] Performed By: #### 2 4323-8 ####[facility] LABCLIA [id number] [place] [address] [place] Anion gap [Moles/Vol] 11 mmol/L Normal 8-15 [facility] Comment on above: Order Comment: Speci men Type: BLOOD SPECIMENOrdering Facility: [facility] Address: [address] [place] [address] Performed By: #### 2 4323-8 ####[facility] LABCLIA [id number] [place] [id number] [place] AST [Catalytic activity/Vol] 39 U/L Normal 14-40 [facility] Comment on above: Order Comment: Speci men Type: BLOOD SPECIMENOrdering Facility: [facility] Address: [address] [place] [address] Performed By: #### 2 4323-8 ####[facility] LABCLIA [id number] [place] [address] [place] Bilirubin [Mass/Vol] 0.6 mg/dL Normal 0.2-1.3 [facility] Comment on above: Order Comment: Speci men Type: BLOOD SPECIMENOrdering Facility: [facility] Address: [address] [place] [address] Performed By: #### 2 4323-8 ####[facility] LABCLIA [id number] [place] [address] [place] Calcium [Mass/Vol] 8.4 mg/dL Low 8.5-10.2 [facility] Comment on above: Order Comment: Speci men Type: BLOOD SPECIMENOrdering Facility: [facility] Address: [address] [place], [place] [address] Performed By: #### 2 4323-8 ####[facility] LABCLIA [id number] [place] [address] [place] Chloride [Moles/Vol] 100 mmol/L Normal 98-107 [facility] Comment on above: Order Comment: Speci men Type: BLOOD SPECIMENOrdering Facility: [facility] Address: [address] [place] [address] Performed By: #### 2 4323-8 ####[facility] LABCLIA [id number] [place] [id number] [place] CO2 [Moles/Vol] 27 mmol/L Normal 22-30 [facility] Comment on above: Order Comment: Speci men Type: BLOOD SPECIMENOrdering Facility: [facility] Address: [address] [place] [address] Performed By: #### 2 4323-8 ####[facility] LABIA [id number] [address] [place] Creatinine [Mass/Vol] 0.78 mg/dL Normal 0.73-1.22 [facility] Comment on above: Order Comment: Speci men Type: BLOOD SPECIMENOrdering Facility: [facility] Address: [address] [place] [address] Performed By: #### 2 4323-8 ####[facility]IA [id number] [address] Creatinine and Glomerular filtration rate.predicted panel (S/P/Bld) 112 mL/min/1.73m??? Normal >=60 [facility] Comment on above: Order Comment: Speci men Type: BLOOD SPECIMENOrdering Facility: [facility] Address: [address] [place] [address] Result Comment: Rosanna mated Glomerular Filtration Rate [...] actual GFR. Performed By: #### 2 4323-8 ####[facility] LABCLIA [id number] [address] [address] [place] Glucose [Mass/Vol] 230 mg/dL High 74-99 [facility] Comment on above: Order Comment: Speci men Type: BLOOD SPECIMENOrdering Facility: [facility] Address: [address] [place] [address] Result Comment: The [place] [employer] (ADA) provides guidance for cutoff [...] Standards of Medical Care in Diabetes 2016, [place] [employer]. Diabetes Care. 2016.39(Suppl 1). Performed By: #### 2 4323-8 ####[facility] LABCLIA [id number] [place] [id number] [place] Potassium [Moles/Vol] 3.7 mmol/L Normal 3.7-5.1 [facility] Comment on above: Order Comment: Speci men Type: BLOOD SPECIMENOrdering Facility: [facility] Address: [address] [place], [place] [id number] Performed By: #### 2 4323-8 ####[facility] LABIA [id number] [address] [address] [place] Protein [Mass/Vol] 6.2 g/dL Low 6.3-8.0 [facility] Comment on above: Order Comment: Speci men Type: BLOOD SPECIMENOrdering Facility: [facility] Address: [address] [place], [place] [address] Performed By: #### 2 4323-8 ####[facility] LABCLIA [id number] [place] [address] [place] Sodium [Moles/Vol] 138 mmol/L Normal 136-144 [facility] Comment on above: Order Comment: Moses burton Type: BLOOD SPECIMENOrdering Facility: [facility] Address: [address] [place] [address] Performed By: #### 2 4323-8 ####[facility] [id number] [place] [address] [place] Urea nitrogen [Mass/Vol] 19 mg/dL Normal 9-24 [facility] Comment on above: Order Comment: Moses burton Type: BLOOD SPECIMENOrdering Facility: [facility] Address: [address] [place] [address] Performed By: #### 2 4323-8 ####[facility] [id number] [place] [address] [place] ECG COMPLETEon 12-30-2024 ECG COMPLETE Normal [facility] PT panel Coag (PPP)on 2024 INR Coag (PPP) [Relative time] 1.9 {INR} High 0.9-1.3 [facility] Comment on above: Order Comment: Moses burton Type: BLOOD SPECIMENOrdering Facility: [facility] Address: [address] [place] [address] Result Comment: Humaira min K Antagonist (VKA) Therapeutic Range: INR 2 to 3 (Target INR of 2.5)Note: For patients treated with VKA drugs, such as warfarin, the [place] [employer] 2012 Guideline recommends [...] al. Chest 2012, 141:7S-47SNishimura RA, et al. [facility] 2017, 70: 252-289 Performed By: #### 3 4528-0, PTTAC ####[facility] LABCLIA [id number] [place] [address] [place] PT Coag (PPP) [Time] 19.9 s High 9.7-13.0 [facility] Comment on above: Order Comment: Speci men Type: BLOOD SPECIMENOrdering Facility: [facility] Address: [address] [place] [address] Performed By: #### 3 4528-0, PTTAC ####[facility] LABCLIA [id number] [place] [address] [place] PTT, ANTICOAGULANT THERAPYon 12-30-2024 aPTT Coag (PPP) [Time] 53.1 s High 23.0-32.4 [facility] Comment on above: Order Comment: Speci men Type: BLOOD SPECIMENOrdering Facility: [facility] Address: [address] [place] [address] Performed By: #### P TTAC ####[facility] LABCLIA [id number] [place] [address] [place] aPTT Coag (PPP) [Time] 50.8 s High 23.0-32.4 [facility] Comment on above: Order Comment: Speci men Type: BLOOD SPECIMENOrdering Facility: [facility] Address: [address] [place] [address] Performed By: #### P TTAC ####[facility] LABIA [id number] [place] [address] [place] aPTT Coag (PPP) [Time] 42.7 s High 23.0-32.4 [facility] Comment on above: Order Comment: Speci men Type: BLOOD SPECIMENOrdering Facility: [facility] Address: [address] [place] [address] Performed By: #### 3 4528-0, PTTAC ####[facility] [id number] [place] [address] [place] XR CHEST 2V FRONTAL/LATon XR CHEST 2V FRONTAL/LAT Normal [facility] B-HYDROXYBUTYRATEon 12-30-19 25 Beta hydroxybutyrate [Moles/Vol] 0.19 mmol/L Normal <0.28 [facility] Comment on above: Order Comment: Speci men Type: BLOOD SPECIMENOrdering Facility: [facility] Address: [address] [place] [address] Result Comment: This test was developed, and its performance characteristics determined by the [facility] Department of Pathology and Laboratory Medicine. It has not been cleared or approved by the FDA. The [facility] Department of Pathology and Laboratory Medicine is regulated under CLIA as qualified to perform high-complexity testing. This test is used for clinical purposes. It should not be regarded as investigational or for research. Performed By: #### 2 4362-6, BHB ####[facility] [id number] [place] [address] [place] CBC panel Auto (Bld)on 12-29 Erythrocyte distribution width (RBC) [Ratio] 12.6 % Normal 11.5-15.0 [facility] Comment on above: Order Comment: Speci men Type: BLOOD SPECIMENOrdering Facility: [facility] Address: [address] [place] [address] Performed By: #### 5 8410-2 ####[facility] [id number] [place] [address] [place] Hematocrit (Bld) [Volume fraction] 29.8 % Low 39.0-51.0 [facility] Comment on above: Order Comment: Speci men Type: BLOOD SPECIMENOrdering Facility: [facility] Address: [address] [place] [address] Performed By: #### 5 8410-2 ####[facility] LABIA [id number] [place] [address] [place] Hemoglobin (Bld) [Mass/Vol] 9.9 g/dL Low 13.0-17.0 [facility] Comment on above: Order Comment: Speci men Type: BLOOD SPECIMENOrdering Facility: [facility] Address: [address] [place] [address] Performed By: #### 5 8410-2 ####[facility] LABIA [id number] [place] [address] [place] MCH (RBC) [Entitic mass] 30.7 pg Normal 26.0-34.0 [facility] Comment on above: Order Comment: Speci men Type: BLOOD SPECIMENOrdering Facility: [facility] Address: [address] [place] [address] Performed By: #### 5 8410-2 ####[facility] [id number] [address] [place] MCHC (RBC) [Mass/Vol] 33.2 g/dL Normal 30.5-36.0 [facility] Comment on above: Order Comment: Speci men Type: BLOOD SPECIMENOrdering Facility: [facility] Address: [address] [place] [address] Performed By: #### 5 8410-2 ####[facility] LABIA [id number] [place] [address] [place] MCV (RBC) [Entitic vol] 92.3 fL Normal 80.0-100.0 [facility] Comment on above: Order Comment: Speci men Type: BLOOD SPECIMENOrdering Facility: [facility] Address: [address] [place] [address] Performed By: #### 5 8410-2 ####[facility] [id number] [place] [address] [place] Nucleated RBC (Bld) [#/Vol] 10*3/uL Normal <0.01 [facility] Comment on above: Order Comment: Speci men Type: BLOOD SPECIMENOrdering Facility: [facility] Address: [address] [place] [address] Performed By: #### 5 8410-2 ####[facility] LABCLIA [id number] [facility] [place] [address] [place] Platelet mean volume (Bld) [Entitic vol] 10.5 fL Normal 9.0-12.7 [facility] Comment on above: Order Comment: Speci men Type: BLOOD SPECIMENOrdering Facility: [facility] Address: [address] [place] [address] Performed By: #### 5 8410-2 ####[facility] LABCLIA [id number] [place] [address] [place] Platelets (Bld) [#/Vol] 163 10*3/uL Normal 150-400 [facility] Comment on above: Order Comment: Speci men Type: BLOOD SPECIMENOrdering Facility: [facility] Address: [address] [place] [address] Performed By: #### 5 8410-2 ####[facility] LABCLIA [id number] [place] [address] [place] RBC (Bld) [#/Vol] 3.23 10*6/uL Low 4.20-6.00 [facility] Comment on above: Order Comment: Speci men Type: BLOOD SPECIMENOrdering Facility: [facility] Address: [address] [place] [address] Performed By: #### 5 8410-2 ####[facility] LABCLIA [id number] [facility] [place] [id number] [place] WBC (Bld) [#/Vol] 9.66 10*3/uL Normal 3.70-11.00 [facility] Comment on above: Order Comment: Speci men Type: BLOOD SPECIMENOrdering Facility: [facility] Address: [address] [place], [place] [address] Performed By: #### 5 8410-2 ####[facility] LABCLIA [id number] [address] [address] [place] CONSULT PROGon 12-29-2024 CONSULT PROG Normal [facility] Comprehensive metabolic 2000 panelon 12-29-2024 Albumin [Mass/Vol] 3.1 g/dL Low 3.9-4.9 [facility] Comment on above: Order Comment: Speci men Type: BLOOD SPECIMENOrdering Facility: [facility] Address: [address] [place] [address] Performed By: #### 2 4323-8 ####[facility] LABCLIA [id number] [address] [place] [address] [place] ALP [Catalytic activity/Vol] 69 U/L Normal 38-113 [facility] Comment on above: Order Comment: Speci men Type: BLOOD SPECIMENOrdering Facility: [facility] Address: [address] [place], [place] [address] Performed By: #### 2 4323-8 ####[facility] LABIA [id number] [address] [place] [address] [place] ALT [Catalytic activity/Vol] 40 U/L Normal 10-54 [facility] Comment on above: Order Comment: Speci men Type: BLOOD SPECIMENOrdering Facility: [facility] Address: [address] [place] [address] Performed By: #### 2 4323-8 ####[facility] LABIA [id number] [address] [address] [place] Anion gap [Moles/Vol] 9 mmol/L Normal 8-15 [facility] Comment on above: Order Comment: Speci men Type: BLOOD SPECIMENOrdering Facility: [facility] Address: [address] [place] [address] Performed By: #### 2 4323-8 ####[facility] LABCLIA [id number] [place] [address] [place] AST [Catalytic activity/Vol] 66 U/L High 14-40 [facility] Comment on above: Order Comment: Speci men Type: BLOOD SPECIMENOrdering Facility: [facility] Address: [address] [place] [address] Performed By: #### 2 4323-8 ####[facility] LABCLIA [id number] [place] [address] [place] Bilirubin [Mass/Vol] 0.5 mg/dL Normal 0.2-1.3 [facility] Comment on above: Order Comment: Speci men Type: BLOOD SPECIMENOrdering Facility: [facility] Address: [address] [place] [address] Performed By: #### 2 4323-8 ####[facility] LABCLIA [id number] [place] [address] [place] Calcium [Mass/Vol] 8.6 mg/dL Normal 8.5-10.2 [facility] Comment on above: Order Comment: Speci men Type: BLOOD SPECIMENOrdering Facility: [facility] Address: [address] [place] [address] Performed By: #### 2 4323-8 ####[facility] LABCLIA [id number] [place] [address] [place] Chloride [Moles/Vol] 99 mmol/L Normal 98-107 [facility] Comment on above: Order Comment: Speci men Type: BLOOD SPECIMENOrdering Facility: [facility] Address: [address] [place] [address] Performed By: #### 2 4323-8 ####[facility] LABCLIA [id number] [place] [address] [place] CO2 [Moles/Vol] 28 mmol/L Normal 22-30 [facility] Comment on above: Order Comment: Speci men Type: BLOOD SPECIMENOrdering Facility: [facility] Address: [address] [place] [address] Performed By: #### 2 4323-8 ####[facility] LABCLIA [id number] [address] [address] [place] Creatinine [Mass/Vol] 0.81 mg/dL Normal 0.73-1.22 [facility] Comment on above: Order Comment: Speci men Type: BLOOD SPECIMENOrdering Facility: [facility] Address: [address] [place] [address] Performed By: #### 2 4323-8 ####[facility] LABIA [id number] [place] [address] [place] Creatinine and Glomerular filtration rate.predicted panel (S/P/Bld) 111 mL/min/1.73m??? Normal >=60 [facility] Comment on above: Order Comment: Speci men Type: BLOOD SPECIMENOrdering Facility: [facility] Address: [address] [place] [address] Result Comment: Rosanna mated Glomerular Filtration Rate [...] actual GFR. Performed By: #### 2 4323-8 ####[facility] LABIA [id number] [address] [address] [place] Glucose [Mass/Vol] 287 mg/dL High 74-99 [facility] Comment on above: Order Comment: Speci men Type: BLOOD SPECIMENOrdering Facility: [facility] Address: [address] [place] [address] Result Comment: The [place] [employer] Association (ADA) provides guidance for cutoff [...] Standards of Medical Care in Diabetes 2016, [place] [employer] Association. Diabetes Care. 2016.39(Suppl 1). Performed By: #### 2 4323-8 ####[facility] LABCLIA [id number] [place] [address] [place] Potassium [Moles/Vol] 4.6 mmol/L Normal 3.7-5.1 [facility] Comment on above: Order Comment: Speci men Type: BLOOD SPECIMENOrdering Facility: [facility] Address: [address] [place] [address] Performed By: #### 2 4323-8 ####[facility] LABIA [id number] [place] [address] [place] Protein [Mass/Vol] 5.4 g/dL Low 6.3-8.0 [facility] Comment on above: Order Comment: Speci men Type: BLOOD SPECIMENOrdering Facility: [facility] Address: [address] [place] [address] Performed By: #### 2 4323-8 ####[facility] LABCLIA [id number] [facility] [place] [address] [place] Sodium [Moles/Vol] 136 mmol/L Normal 136-144 [facility] Comment on above: Order Comment: Speci men Type: BLOOD SPECIMENOrdering Facility: [facility] Address: [address] [place] [address] Performed By: #### 2 4323-8 ####[facility] LABCLIA [id number] [place] [address] [place] Urea nitrogen [Mass/Vol] 20 mg/dL Normal 9-24 [facility] Comment on above: Order Comment: Moses burton Type: BLOOD SPECIMENOrdering Facility: [facility] Address: [address] [place] [address] Performed By: #### 2 4323-8 ####[facility] LABCLIA [id number] [place] [address] [place] [id number] 12-29-2024 ECG01 Normal [facility] PT EDon 12-29-2024 PT ED Normal [facility] PT panel Coag (PPP)on 2024 INR Coag (PPP) [Relative time] 1.7 {INR} High 0.9-1.3 [facility] Comment on above: Order Comment: Moses burton Type: BLOOD SPECIMENOrdering Facility: [facility] Address: [address] [place] [address] Result Comment: Humaira min K Antagonist (VKA) Therapeutic Range: INR 2 to 3 (Target INR of 2.5)Note: For patients treated with VKA drugs, such as warfarin, the [place] [employer] 2012 Guideline recommends [...] of 2.5 to 3.5 (target INR of 3).Anotnioyatt GH, et al. Chest 2012, 141:7S-47SNishimura RA, et al. JAC 2017, 70: 252-289 Performed By: #### P [facility], 92698-9 ####[facility] LABCLIA [id number] [place] [address] [place] PT Coag (PPP) [Time] 17.7 s High 9.7-13.0 [facility] Comment on above: Order Comment: Speci men Type: BLOOD SPECIMENOrdering Facility: [facility] Address: [address] [place] [address] Performed By: #### P TTAC, 11032-6 ####[facility] LABCLIA [id number] [place] [address] [place] PTT, ANTICOAGULANT THERAPYon 12-29-2024 aPTT Coag (PPP) [Time] 49.8 s High 23.0-32.4 [facility] Comment on above: Order Comment: Speci men Type: BLOOD SPECIMENOrdering Facility: [facility] Address: [address] [place] [address] Performed By: #### P TTAC ####[facility] LABCLIA [id number] [place] [address] [place] aPTT Coag (PPP) [Time] 58.5 s High 23.0-32.4 [facility] Comment on above: Order Comment: Speci men Type: BLOOD SPECIMENOrdering Facility: [facility] Address: [address] [place] [address] Performed By: #### P TTAC ####[facility] LABIA [id number] [address] [place] aPTT Coag (PPP) [Time] 67.5 s High 23.0-32.4 [facility] Comment on above: Order Comment: Speci men Type: BLOOD SPECIMENOrdering Facility: [facility] Address: [address] [place] [address] Performed By: #### P TTAC, 93421-4 ####[facility] LABCLIA [id number] [place] [address] [place] Renal function 2000 panelon 12-29-2024 Albumin [Mass/Vol] 3.1 g/dL Low 3.9-4.9 [facility] Comment on above: Order Comment: Speci men Type: BLOOD SPECIMENOrdering Facility: [facility] Address: [address] [place] [id number] Performed By: #### 2 4362-6, B ####[facility] LABCLIA [id number] [address] [address] [place] Anion gap [Moles/Vol] 10 mmol/L Normal 8-15 [facility] Comment on above: Order Comment: Speci men Type: BLOOD SPECIMENOrdering Facility: [facility] Address: [address] [place] [id number] Performed By: #### 2 4362-6, B ####[facility] LABCLIA [id number] [place] [address] [place] Calcium [Mass/Vol] 8.5 mg/dL Normal 8.5-10.2 [facility] Comment on above: Order Comment: Speci men Type: BLOOD SPECIMENOrdering Facility: [facility] Address: [address] [place] [id number] Performed By: #### 2 4362-6, B ####[facility] LABCLIA [id number] [place] [address] [place] Chloride [Moles/Vol] 98 mmol/L Normal 98-107 [facility] Comment on above: Order Comment: Speci men Type: BLOOD SPECIMENOrdering Facility: [facility] Address: [address] [place] [id number] Performed By: #### 2 4362-6, B ####[facility] LABCLIA [id number] [place] [address] [place] CO2 [Moles/Vol] 28 mmol/L Normal 22-30 [facility] Comment on above: Order Comment: Speci men Type: BLOOD SPECIMENOrdering Facility: [facility] Address: [address] [place], [place] [address] Performed By: #### 2 4362-6, BHB ####[facility] LABCLIA [id number] [facility] [id number] [place] [address] [place] Creatinine [Mass/Vol] 0.90 mg/dL Normal 0.73-1.22 [facility] Comment on above: Order Comment: Moses burton Type: BLOOD SPECIMENOrdering Facility: [facility] Address: [address] [place] [address] Performed By: #### 2 4362-6, [facility] ####[facility] LABIA [id number] [facility] [address] [address] [place] Creatinine and Glomerular filtration rate.predicted panel (S/P/Bld) 107 mL/min/1.73m??? Normal >=60 [facility] Comment on above: Order Comment: Moses [facility] Type: BLOOD SPECIMENOrdering Facility: [facility] Address: [address] [place] [address] Result Comment: Rosanna mated Glomerular Filtration Rate [...] actual GFR. Performed By: #### 2 4362-6, [facility] ####[facility] LABIA [id number] [address] [address] [place] Glucose [Mass/Vol] 379 mg/dL High 74-99 [facility] Comment on above: Order Comment: Delfinai josephine Type: BLOOD SPECIMENOrdering Facility: [facility] Address: [address] [place] [address] Result Comment: The [place] Diabetes Association (ADA) provides guidance for cutoff [...] Standards of Medical Care in Diabetes 2016, [place] [employer]. Diabetes Care. 2016.39(Suppl 1). Performed By: #### 2 4362-6, Yvonne ####[facility] LABCLIA [id number] [place] [address] [place] Phosphate [Mass/Vol] 2.2 mg/dL Low 2.7-4.8 [facility] Comment on above: Order Comment: Moses burton Type: BLOOD SPECIMENOrdering Facility: [facility] Address: [address] [place] [address] Performed By: #### 2 4362-6, Yvonne ####[facility] LABCLIA [id number] [place] [address] [place] Potassium [Moles/Vol] 3.8 mmol/L Normal 3.7-5.1 [facility] Comment on above: Order Comment: Moses burtno Type: BLOOD SPECIMENOrdering Facility: [facility] Address: [address] [place] [address] Performed By: #### 2 4362-6, Yvonne ####[facility] LABCLIA [id number] [place] [address] [place] Sodium [Moles/Vol] 136 mmol/L Normal 136-144 [facility] Comment on above: Order Comment: Moses burton Type: BLOOD SPECIMENOrdering Facility: [facility] Address: [address] [place] [address] Performed By: #### 2 4362-6, Yvonne ####[facility] LABCLIA [id number] [facility] [address] [address] [place] Urea nitrogen [Mass/Vol] 20 mg/dL Normal 9-24 [facility] Comment on above: Order Comment: Speci men Type: BLOOD SPECIMENOrdering Facility: [facility] Address: [address] [place] [address] Performed By: #### 2 4362-6, [facility] ####[facility] LABCLIA [id number] [address] [place] [address] [place] US CHEST EFFUSION SURVEYon 0 12-29-2024 US CHEST EFFUSION SURVEY Normal [facility] ALLIED HEALTHon 12-28-2024 ALLIED HEALTH Normal [facility] CBC panel Auto (Bld)on 12-28 Erythrocyte distribution width (RBC) [Ratio] 12.6 % Normal 11.5-15.0 [facility] Comment on above: Order Comment: Speci men Type: BLOOD SPECIMENOrdering Facility: [facility] Address: [address] [place] [address] Performed By: #### 5 8410-2 ####[facility] LABCLIA [id number] [place] [address] [place] Hematocrit (Bld) [Volume fraction] 30.2 % Low 39.0-51.0 [facility] Comment on above: Order Comment: Speci men Type: BLOOD SPECIMENOrdering Facility: [facility] Address: [address] [place] [address] Performed By: #### 5 8410-2 ####[facility] LABCLIA [id number] [place] [address] [place] Hemoglobin (Bld) [Mass/Vol] 10.0 g/dL Low 13.0-17.0 [facility] Comment on above: Order Comment: Speci men Type: BLOOD SPECIMENOrdering Facility: [facility] Address: [address] [place] [address] Performed By: #### 5 8410-2 ####[facility] LABCLIA [id number] [place] [address] [place] MCH (RBC) [Entitic mass] 30.4 pg Normal 26.0-34.0 [facility] Comment on above: Order Comment: Speci men Type: BLOOD SPECIMENOrdering Facility: [facility] Address: [address] [place] [address] Performed By: #### 5 8410-2 ####[facility] LABIA [id number] [place] [address] [place] MCHC (RBC) [Mass/Vol] 33.1 g/dL Normal 30.5-36.0 [facility] Comment on above: Order Comment: Speci men Type: BLOOD SPECIMENOrdering Facility: [facility] Address: [address] [place] [address] Performed By: #### 5 8410-2 ####[facility] [id number] [place] [address] [place] MCV (RBC) [Entitic vol] 91.8 fL Normal 80.0-100.0 [facility] Comment on above: Order Comment: Speci men Type: BLOOD SPECIMENOrdering Facility: [facility] Address: [address] [place] [address] Performed By: #### 5 8410-2 ####[facility] [id number] [place] [address] [place] Nucleated RBC (Bld) [#/Vol] 10*3/uL Normal <0.01 [facility] Comment on above: Order Comment: Speci men Type: BLOOD SPECIMENOrdering Facility: [facility] Address: [address] [place] [address] Performed By: #### 5 8410-2 ####[facility] [id number] [place] [address] [place] Platelet mean volume (Bld) [Entitic vol] 10.8 fL Normal 9.0-12.7 [facility] Comment on above: Order Comment: Speci men Type: BLOOD SPECIMENOrdering Facility: [facility] Address: [address] [place] [address] Performed By: #### 5 8410-2 ####[facility] LABCLIA [id number] [place] [address] [place] Platelets (Bld) [#/Vol] 126 10*3/uL Low 150-400 [facility] Comment on above: Order Comment: Speci men Type: BLOOD SPECIMENOrdering Facility: [facility] Address: [address] [place] [address] Performed By: #### 5 8410-2 ####[facility] LABIA [id number] [place] [address] [place] RBC (Bld) [#/Vol] 3.29 10*6/uL Low 4.20-6.00 [facility] Comment on above: Order Comment: Speci men Type: BLOOD SPECIMENOrdering Facility: [facility] Address: [address] [place] [address] Performed By: #### 5 8410-2 ####[facility] LABIA [id number] [place] [address] [place] WBC (Bld) [#/Vol] 9.15 10*3/uL Normal 3.70-11.00 [facility] Comment on above: Order Comment: Speci men Type: BLOOD SPECIMENOrdering Facility: [facility] Address: [address] [place] [address] Performed By: #### 5 8410-2 ####[facility] LABIA [id number] [place] [address] [place] CNDSon 12-28-2024 CNDS Normal [facility] CONSULT PROGon 12-28-2024 CONSULT PROG Normal [facility] Comprehensive metabolic 2000 panelon 12-28-2024 Albumin [Mass/Vol] 3.0 g/dL Low 3.9-4.9 [facility] Comment on above: Order Comment: Speci men Type: BLOOD SPECIMENOrdering Facility: [facility] Address: [address] [place] [address] Performed By: #### 2 4323-8 ####[facility] LABCLIA [id number] [place] [address] [place] ALP [Catalytic activity/Vol] 64 U/L Normal 38-113 [facility] Comment on above: Order Comment: Speci men Type: BLOOD SPECIMENOrdering Facility: [facility] Address: [address] [place] [address] Performed By: #### 2 4323-8 ####[facility] LABCLIA [id number] [place] [address] [place] ALT [Catalytic activity/Vol] 44 U/L Normal 10-54 [facility] Comment on above: Order Comment: Speci men Type: BLOOD SPECIMENOrdering Facility: [facility] Address: [address] [place] [address] Performed By: #### 2 4323-8 ####[facility] LABCLIA [id number] [facility] [address], [place] [address] [place] Anion gap [Moles/Vol] 11 mmol/L Normal 8-15 [facility] Comment on above: Order Comment: Speci men Type: BLOOD SPECIMENOrdering Facility: [facility] Address: [address] [place] [address] Performed By: #### 2 4323-8 ####[facility] LABCLIA [id number] [place] [address] [place] AST [Catalytic activity/Vol] 100 U/L High 14-40 [facility] Comment on above: Order Comment: Speci men Type: BLOOD SPECIMENOrdering Facility: [facility] Address: [address] [place] [address] Performed By: #### 2 4323-8 ####[facility] LABCLIA [id number] [place] [address] [place] Bilirubin [Mass/Vol] 0.5 mg/dL Normal 0.2-1.3 [facility] Comment on above: Order Comment: Speci men Type: BLOOD SPECIMENOrdering Facility: [facility] Address: [address] [place] [address] Performed By: #### 2 4323-8 ####[facility] LABCLIA [id number] [facility] [address] [address] [place] Calcium [Mass/Vol] 8.0 mg/dL Low 8.5-10.2 [facility] Comment on above: Order Comment: Speci men Type: BLOOD SPECIMENOrdering Facility: [facility] Address: [address] [place] [address] Performed By: #### 2 4323-8 ####[facility] LABCLIA [id number] [facility] [address] [place] [address] [place] Chloride [Moles/Vol] 101 mmol/L Normal 98-107 [facility] Comment on above: Order Comment: Speci men Type: BLOOD SPECIMENOrdering Facility: [facility] Address: [address] [place] [address] Performed By: #### 2 4323-8 ####[facility] LABCLIA [id number] [facility] [place] [address] [place] CO2 [Moles/Vol] 25 mmol/L Normal 22-30 [facility] Comment on above: Order Comment: Speci men Type: BLOOD SPECIMENOrdering Facility: [facility] Address: [address] [place] [address] Performed By: #### 2 4323-8 ####[facility] LABCLIA [id number] [facility] [place] [address] [place] Creatinine [Mass/Vol] 0.67 mg/dL Low 0.73-1.22 [facility] Comment on above: Order Comment: Speci men Type: BLOOD SPECIMENOrdering Facility: [facility] Address: [address] [place] [address] Performed By: #### 2 4323-8 ####[facility] LABCLIA [id number] [place] [address] [place] Creatinine and Glomerular filtration rate.predicted panel (S/P/Bld) 117 mL/min/1.73m??? Normal >=60 [facility] Comment on above: Order Comment: Moses burton Type: BLOOD SPECIMENOrdering Facility: [facility] Address: [address] [place] [address] Result Comment: Rosanna mated Glomerular Filtration Rate [...] actual GFR. Performed By: #### 2 4323-8 ####[facility] LABIA [id number] [place] [address] [place] Glucose [Mass/Vol] 167 mg/dL High 74-99 [facility] Comment on above: Order Comment: Moses burton Type: BLOOD SPECIMENOrdering Facility: [facility] Address: [address] [place] [address] Result Comment: The [place] Diabetes Association (ADA) provides guidance for cutoff [...] Standards of Medical Care in Diabetes 2016, [place] [employer]. Diabetes Care. 2016.39(Suppl 1). Performed By: #### 2 4323-8 ####[facility] LABCLIA [id number] [address] [place] [address] [place] Potassium [Moles/Vol] 4.0 mmol/L Normal 3.7-5.1 [facility] Comment on above: Order Comment: Speci men Type: BLOOD SPECIMENOrdering Facility: [facility] Address: [address] [place] [address] Performed By: #### 2 4323-8 ####[facility] LABCLIA [id number] [address], [facility] [place] Protein [Mass/Vol] 5.4 g/dL Low 6.3-8.0 [facility] Comment on above: Order Comment: Speci men Type: BLOOD SPECIMENOrdering Facility: [facility] Address: [address] [place] [address] Performed By: #### 2 4323-8 ####[facility] LABCLIA [id number] [place] [address] [place] Sodium [Moles/Vol] 137 mmol/L Normal 136-144 [facility] Comment on above: Order Comment: Speci men Type: BLOOD SPECIMENOrdering Facility: [facility] Address: [address] [place] [address] Performed By: #### 2 4323-8 ####[facility] LABCLIA [id number] [place] [address] [place] Urea nitrogen [Mass/Vol] 19 mg/dL Normal 9-24 [facility] Comment on above: Order Comment: Speci men Type: BLOOD SPECIMENOrdering Facility: [facility] Address: [address] [place], [place] [address] Performed By: #### 2 4323-8 ####[facility] LABIA [id number] [place] [address] [place] PT panel Coag (PPP)on 2024 INR Coag (PPP) [Relative time] 1.6 {INR} High 0.9-1.3 [facility] Comment on above: Order Comment: Moses burton Type: BLOOD SPECIMENOrdering Facility: [facility] Address: [address] [place] [address] Result Comment: Humaira min K Antagonist (VKA) Therapeutic Range: INR 2 to 3 (Target INR of 2.5)Note: For patients treated with VKA drugs, such as warfarin, the [place] [employer] 2012 Guideline recommends [...] al. Chest 2012, 141:7S-47SNishimaiden RA, et al. [facility] 2017, 70: 252-289 Performed By: #### 3 4528-0 ####[facility] [id number] [place] [address] [place] PT Coag (PPP) [Time] 16.9 s High 9.7-13.0 [facility] Comment on above: Order Comment: Moses burton Type: BLOOD SPECIMENOrdering Facility: [facility] Address: [address] [place] [address] Performed By: #### 3 4528-0 ####[facility] [id number] [place] [address] [place] PTT, ANTICOAGULANT THERAPYon 12-28-2024 aPTT Coag (PPP) [Time] 66.9 s High 23.0-32.4 [facility] Comment on above: Order Comment: Moses burton Type: BLOOD SPECIMENOrdering Facility: [facility] Address: [address] [place] [address] Performed By: #### P TTAC ####[facility] LABCLIA [id number] [address] [address] [place] THERAPY NTon 12-28-2024 THERAPY NT Normal [facility] XR CHEST 2V FRONTAL/LATon XR CHEST 2V FRONTAL/LAT Normal [facility] ALLIED HEALTHon 12-27-2024 ALLIED HEALTH Normal [facility] CASE MANAGEMon 12-27-2024 CASE MANAGEM Normal [facility] CBC panel Auto (Bld)on 12-27 Erythrocyte distribution width (RBC) [Ratio] 12.7 % Normal 11.5-15.0 [facility] Comment on above: Order Comment: Speci men Type: BLOOD SPECIMENOrdering Facility: [facility] Address: [address] [place] [address] Performed By: #### 5 8410-2 ####[facility] LABIA [id number] [place] [address] [place] Hematocrit (Bld) [Volume fraction] 29.3 % Low 39.0-51.0 [facility] Comment on above: Order Comment: Speci men Type: BLOOD SPECIMENOrdering Facility: [facility] Address: [address] [place] [address] Performed By: #### 5 8410-2 ####[facility] LABIA [id number] [place] [address] [place] Hemoglobin (Bld) [Mass/Vol] 10.2 g/dL Low 13.0-17.0 [facility] Comment on above: Order Comment: Speci men Type: BLOOD SPECIMENOrdering Facility: [facility] Address: [address] [place] [address] Performed By: #### 5 8410-2 ####[facility] LABIA [id number] [place] [address] [place] MCH (RBC) [Entitic mass] 30.5 pg Normal 26.0-34.0 [facility] Comment on above: Order Comment: Speci men Type: BLOOD SPECIMENOrdering Facility: [facility] Address: [address] [place] [address] Performed By: #### 5 8410-2 ####[facility] [id number] [address] [place] MCHC (RBC) [Mass/Vol] 34.8 g/dL Normal 30.5-36.0 [facility] Comment on above: Order Comment: Speci men Type: BLOOD SPECIMENOrdering Facility: [facility] Address: [address] [place] [address] Performed By: #### 5 8410-2 ####[facility] [id number] [place] [address] [place] MCV (RBC) [Entitic vol] 87.7 fL Normal 80.0-100.0 [facility] Comment on above: Order Comment: Speci men Type: BLOOD SPECIMENOrdering Facility: [facility] Address: [address] [place] [address] Performed By: #### 5 8410-2 ####[facility] [id number] [place] [address] [place] Nucleated RBC (Bld) [#/Vol] 10*3/uL Normal <0.01 [facility] Comment on above: Order Comment: Speci men Type: BLOOD SPECIMENOrdering Facility: [facility] Address: [address] [place] [address] Performed By: #### 5 8410-2 ####[facility] [id number] [place] [address] [place] Platelet mean volume (Bld) [Entitic vol] 10.6 fL Normal 9.0-12.7 [facility] Comment on above: Order Comment: Speci men Type: BLOOD SPECIMENOrdering Facility: [facility] Address: [address] [place] [address] Performed By: #### 5 8410-2 ####[facility] LABCLIA [id number] [address] [address] [place] Platelets (Bld) [#/Vol] 128 10*3/uL Low 150-400 [facility] Comment on above: Order Comment: Speci men Type: BLOOD SPECIMENOrdering Facility: [facility] Address: [address] [place] [address] Performed By: #### 5 8410-2 ####[facility]IA [id number] [address] [address] [place] RBC (Bld) [#/Vol] 3.34 10*6/uL Low 4.20-6.00 [facility] Comment on above: Order Comment: Speci men Type: BLOOD SPECIMENOrdering Facility: [facility] Address: [address] [place] [address] Performed By: #### 5 8410-2 ####[facility] [id number] [place] [address] [place] WBC (Bld) [#/Vol] 12.12 10*3/uL High 3.70-11.00 [facility] Comment on above: Order Comment: Speci men Type: BLOOD SPECIMENOrdering Facility: [facility] Address: [address] [place] [address] Performed By: #### 5 8410-2 ####[facility] [id number] [place] [address] [place] CONSULT PROGon 12-27-2024 CONSULT PROG Normal [facility] Comprehensive metabolic 2000 panelon 12-27-2024 Albumin [Mass/Vol] 3.2 g/dL Low 3.9-4.9 [facility] Comment on above: Order Comment: Speci men Type: BLOOD SPECIMENOrdering Facility: [facility] Address: [address] [place] [address] Performed By: #### 2 4323-8 ####[facility] LABCLIA [id number] [facility] [address] [place] [address] [place] ALP [Catalytic activity/Vol] 62 U/L Normal 38-113 [facility] Comment on above: Order Comment: Speci men Type: BLOOD SPECIMENOrdering Facility: [facility] Address: [address] [place] [address] Performed By: #### 2 4323-8 ####[facility] LABCLIA [id number] [facility] [place] [address] [place] ALT [Catalytic activity/Vol] 48 U/L Normal 10-54 [facility] Comment on above: Order Comment: Speci men Type: BLOOD SPECIMENOrdering Facility: [facility] Address: [address] [place] [address] Performed By: #### 2 4323-8 ####[facility] LABCLIA [id number] [place] [address] [place] Anion gap [Moles/Vol] 12 mmol/L Normal 8-15 [facility] Comment on above: Order Comment: Speci men Type: BLOOD SPECIMENOrdering Facility: [facility] Address: [address] [place] [address] Performed By: #### 2 4323-8 ####[facility] LABCLIA [id number] [place] [address] [place] AST [Catalytic activity/Vol] 147 U/L High 14-40 [facility] Comment on above: Order Comment: Speci men Type: BLOOD SPECIMENOrdering Facility: [facility] Address: [address] [place], [place] [address] Performed By: #### 2 4323-8 ####[facility] LABCLIA [id number] [address] [address] [place] Bilirubin [Mass/Vol] 0.6 mg/dL Normal 0.2-1.3 [facility] Comment on above: Order Comment: Speci men Type: BLOOD SPECIMENOrdering Facility: [facility] Address: [address] [place], [place] [address] Performed By: #### 2 4323-8 ####[facility] LABCLIA [id number] [address] [address] [place] Calcium [Mass/Vol] 8.0 mg/dL Low 8.5-10.2 [facility] Comment on above: Order Comment: Speci men Type: BLOOD SPECIMENOrdering Facility: [facility] Address: [address] [place], [place] [address] Performed By: #### 2 4323-8 ####[facility] LABCLIA [id number] [facility] [place] [id number] [place] Chloride [Moles/Vol] 101 mmol/L Normal 98-107 [facility] Comment on above: Order Comment: Speci men Type: BLOOD SPECIMENOrdering Facility: [facility] Address: [address] [place] [address] Performed By: #### 2 4323-8 ####[facility] LABCLIA [id number] [facility] [place] [address] [place] CO2 [Moles/Vol] 22 mmol/L Normal 22-30 [facility] Comment on above: Order Comment: Speci men Type: BLOOD SPECIMENOrdering Facility: [facility] Address: [address] [place], [place] [address] Performed By: #### 2 4323-8 ####[facility] LABCLIA [id number] [facility] [address] [address] [place] Creatinine [Mass/Vol] 0.83 mg/dL Normal 0.73-1.22 [facility] Comment on above: Order Comment: Speci men Type: BLOOD SPECIMENOrdering Facility: [facility] Address: [address] [place], [place] [address] Performed By: #### 2 4323-8 ####[facility] LABCLIA [id number] [place] [address] [place] Creatinine and Glomerular filtration rate.predicted panel (S/P/Bld) 110 mL/min/1.73m??? Normal >=60 [facility] Comment on above: Order Comment: Moses burton Type: BLOOD SPECIMENOrdering Facility: [facility] Address: [address] [place] [address] Result Comment: Rosanna mated Glomerular Filtration Rate [...] actual GFR. Performed By: #### 2 4323-8 ####[facility] LABCLIA [id number] [place] [id number] [place] Glucose [Mass/Vol] 200 mg/dL High 74-99 [facility] Comment on above: Order Comment: Moses burton Type: BLOOD SPECIMENOrdering Facility: [facility] Address: [address] [place] [address] Result Comment: The [place] Diabetes Association (ADA) provides guidance for cutoff [...] Standards of Medical Care in Diabetes 2016, [place] [employer]. Diabetes Care. 2016.39(Suppl 1). Performed By: #### 2 4323-8 ####[facility] LABCLIA [id number] [place] [address] [place] Potassium [Moles/Vol] 4.2 mmol/L Normal 3.7-5.1 [facility] Comment on above: Order Comment: Speci men Type: BLOOD SPECIMENOrdering Facility: [facility] Address: [address] [place] [address] Performed By: #### 2 4323-8 ####[facility] LABCLIA [id number] [place] [address] [place] Protein [Mass/Vol] 5.2 g/dL Low 6.3-8.0 [facility] Comment on above: Order Comment: Speci men Type: BLOOD SPECIMENOrdering Facility: [facility] Address: [address] [place] [address] Performed By: #### 2 4323-8 ####[facility] LABCLIA [id number] [place] [address] [place] Sodium [Moles/Vol] 135 mmol/L Low 136-144 [facility] Comment on above: Order Comment: Speci men Type: BLOOD SPECIMENOrdering Facility: [facility] Address: [address] [place] [address] Performed By: #### 2 4323-8 ####[facility] LABCLIA [id number] [place] [address] [place] Urea nitrogen [Mass/Vol] 21 mg/dL Normal 9-24 [facility] Comment on above: Order Comment: Speci men Type: BLOOD SPECIMENOrdering Facility: [facility] Address: [address] [place] [address] Performed By: #### 2 4323-8 ####[facility] LABCLIA [id number] [place] [id number] [place] ECG COMPLETEon 12-27-2024 ECG COMPLETE Normal [facility] NUTRITIONon 12-27-2024 NUTRITION Normal [facility] PT panel Coag (PPP)on 2024 INR Coag (PPP) [Relative time] 1.5 {INR} High 0.9-1.3 [facility] Comment on above: Order Comment: Moses burton Type: BLOOD SPECIMENOrdering Facility: [facility] Address: [address] [facility] [place] [address] Result Comment: Humaira min K Antagonist (VKA) Therapeutic Range: INR 2 to 3 (Target INR of 2.5)Note: For patients treated with VKA drugs, such as warfarin, the [place] [employer] 2012 Guideline recommends [...] al. Chest 2012, 141:7S-47SNishimura RA, et al. [facility] 2017, 70: 252-289 Performed By: #### 3 4528-0 ####[facility] [id number] [place] [address] [place] PT Coag (PPP) [Time] 15.6 s High 9.7-13.0 [facility] Comment on above: Order Comment: Moses burton Type: BLOOD SPECIMENOrdering Facility: [facility] Address: [address] [facility] [place] [address] Performed By: #### 3 4528-0 ####[facility] [id number] [place] [address] [place] THERAPY NTon 12-27-2024 THERAPY NT Normal [facility] THERAPY NT Normal [facility] XR CHEST 2V FRONTAL/LATon XR CHEST 2V FRONTAL/LAT Normal [facility] ARTERIAL BLOOD GASESon 12-26 Base excess Calc (Bld) [Moles/Vol] 1 mmol/L Normal 0-2 [facility] Comment on above: Order Comment: Speci men Type: ARTERIAL BLOOD SPECIMENOrdering Facility: [facility] Address: [address] [place] [address] Performed By: #### A LLBG ####[facility] LAB[facility] [id number] [place] [address] [place] Body temperature 98.6 [degF] Normal [facility] Comment on above: Order Comment: Speci men Type: ARTERIAL BLOOD SPECIMENOrdering Facility: [facility] Address: [address] [place] [address] Performed By: #### A LLBG ####[facility] [id number] [place] [address] [place] Calcium.ionized (Bld) [Mass/Vol] 1.14 mmol/L Normal 1.08-1.30 [facility] Comment on above: Order Comment: Speci men Type: ARTERIAL BLOOD SPECIMENOrdering Facility: [facility] Address: [address] [place] [address] Performed By: #### A LLBG ####[facility] [id number] [place] [address] [place] Calcium.ionized adjusted to pH 7.4 (BldA) [Moles/Vol] 1.14 mmol/L Normal 1.08-1.30 [facility] Comment on above: Order Comment: Speci men Type: ARTERIAL BLOOD SPECIMENOrdering Facility: [facility] Address: [address] [place] [address] Performed By: #### A LLBG ####[facility] [id number] [place] [address] [place] Carboxyhemoglobin (BldA) [Mass fraction] 1.5 % Normal 0.0-2.0 [facility] Comment on above: Order Comment: Speci men Type: ARTERIAL BLOOD SPECIMENOrdering Facility: [facility] Address: [address] [place] [address] Result Comment: Carb oxyhemoglobin Reference Range for Smokers: 2.0-8.0% Performed By: #### A LLBG ####[facility] LABCL[facility] [id number] [place] [address] [place] CO2 (Bld) [Partial pressure] 44 mm Hg Normal 36-46 [facility] Comment on above: Order Comment: Speci men Type: ARTERIAL BLOOD SPECIMENOrdering Facility: [facility] Address: [address] [place] [address] Performed By: #### A LLBG ####[facility] LABCLIA [id number] [place] [address] [place] Glucose [Mass/Vol] 180 mg/dL High 60-105 [facility] Comment on above: Order Comment: Speci men Type: ARTERIAL BLOOD SPECIMENOrdering Facility: [facility] Address: [address] [place] [address] Performed By: #### A LLBG ####[facility] LABCL[facility] [id number] [place] [address] [place] HCO3 (Bld) [Moles/Vol] 26 mmol/L Normal 22-26 [facility] Comment on above: Order Comment: Speci men Type: ARTERIAL BLOOD SPECIMENOrdering Facility: [facility] Address: [address] [place] [address] Performed By: #### A LLBG ####[facility] LABCLIA [id number] [place] [id number] [place] Hematocrit (Bld) [Volume fraction] 36.3 % Low 39.0-51.0 [facility] Comment on above: Order Comment: Speci men Type: ARTERIAL BLOOD SPECIMENOrdering Facility: [facility] Address: [address] [place] [address] Performed By: #### A LLBG ####[facility] LABCLIA [id number] [place] [id number] [place] Hemoglobin (Bld) [Mass/Vol] 11.8 g/dL Low 13.0-17.0 [facility] Comment on above: Order Comment: Speci men Type: ARTERIAL BLOOD SPECIMENOrdering Facility: [facility] Address: [address] [place] [address] Performed By: #### A LLBG ####[facility] LABCLIA [id number] [place] [address] [place] Lactate [Moles/Vol] 1.2 mmol/L Normal 0.5-2.2 [facility] Comment on above: Order Comment: Speci men Type: ARTERIAL BLOOD SPECIMENOrdering Facility: [facility] Address: [address] [place] [address] Performed By: #### A LLBG ####[facility] LABCLIA [id number] [place] [address] [place] LITERS 4 Liters/min Normal [facility] Comment on above: Order Comment: Speci men Type: ARTERIAL BLOOD SPECIMENOrdering Facility: [facility] Address: [address] [place] [address] Performed By: #### A LLBG ####[facility] [facility] [id number] [place] [address] [place] Methemoglobin (Bld) [Mass fraction] 0.6 % Normal 0.0-1.5 [facility] Comment on above: Order Comment: Speci men Type: ARTERIAL BLOOD SPECIMENOrdering Facility: [facility] Address: [address] [place] [address] Performed By: #### A LLBG ####[facility] LABCLIA [id number] [place] [address] [place] O2 THERAPY NC = Nasal Cannula Normal [facility] Comment on above: Order Comment: Speci men Type: ARTERIAL BLOOD SPECIMENOrdering Facility: [facility] Address: [address] [place] [address] Performed By: #### A LLBG ####[facility] LABCLIA [id number] [address] [address] [place] Oxygen (Bld) [Partial pressure] 83 mm Hg Low 85-95 [facility] Comment on above: Order Comment: Speci men Type: ARTERIAL BLOOD SPECIMENOrdering Facility: [facility] Address: [address] [place] [address] Performed By: #### A LLBG ####[facility] LABCLIA [id number] [place] [id number] [place] Oxyhemoglobin (BldA) [Mass fraction] 95 % Normal 95-98 [facility] Comment on above: Order Comment: Speci men Type: ARTERIAL BLOOD SPECIMENOrdering Facility: [facility] Address: [address] [place] [address] Performed By: #### A LLBG ####[facility] LABIA [id number] [place] [address] [place] pH (Bld) 7.39 [pH] Normal 7.35-7.45 [facility] Comment on above: Order Comment: Speci men Type: ARTERIAL BLOOD SPECIMENOrdering Facility: [facility] Address: [address] [place] [address] Performed By: #### A LLBG ####[facility] LABIA [id number] [place] [id number] [place] Potassium [Moles/Vol] 4.0 mmol/L Normal 3.5-5.0 [facility] Comment on above: Order Comment: Speci men Type: ARTERIAL BLOOD SPECIMENOrdering Facility: [facility] Address: [address] [place] [address] Performed By: #### A LLBG ####[facility] LABCLIA [id number] [place] [id number] [place] Sodium [Moles/Vol] 136 mmol/L Normal 136-144 [facility] Comment on above: Order Comment: Speci men Type: ARTERIAL BLOOD SPECIMENOrdering Facility: [facility] Address: [address] [place] [address] Performed By: #### A LLBG ####[facility] LABCLIA [id number] [place] [address] [place] Base excess Calc (Bld) [Moles/Vol] 0 mmol/L Normal 0-2 [facility] Comment on above: Order Comment: Speci men Type: ARTERIAL BLOOD SPECIMENOrdering Facility: [facility] Address: [address] [place] [address] Performed By: #### A LLBG ####[facility] LABIA [id number] [place] [address] [place] Body temperature 98.6 [degF] Normal [facility] Comment on above: Order Comment: Speci men Type: ARTERIAL BLOOD SPECIMENOrdering Facility: [facility] Address: [address] [place] [address] Performed By: #### A LLBG ####[facility] LABIA [id number] [place] [address] [place] Calcium.ionized (Bld) [Mass/Vol] 1.19 mmol/L Normal 1.08-1.30 [facility] Comment on above: Order Comment: Speci men Type: ARTERIAL BLOOD SPECIMENOrdering Facility: [facility] Address: [address] [place] [address] Performed By: #### A LLBG ####[facility] LABCLIA [id number] [place] [id number] [place] Calcium.ionized adjusted to pH 7.4 (BldA) [Moles/Vol] 1.18 mmol/L Normal 1.08-1.30 [facility] Comment on above: Order Comment: Speci men Type: ARTERIAL BLOOD SPECIMENOrdering Facility: [facility] Address: [address] [place] [address] Performed By: #### A LLBG ####[facility] LABCLIA [id number] [place] [address] [place] Carboxyhemoglobin (BldA) [Mass fraction] 1.7 % Normal 0.0-2.0 [facility] Comment on above: Order Comment: Speci men Type: ARTERIAL BLOOD SPECIMENOrdering Facility: [facility] Address: [address] [place] [address] Result Comment: Carb oxyhemoglobin Reference Range for Smokers: 2.0-8.0% Performed By: #### A LLBG ####[facility] LABCLIA [id number] [place] [address] [place] CO2 (Bld) [Partial pressure] 44 mm Hg Normal 36-46 [facility] Comment on above: Order Comment: Speci men Type: ARTERIAL BLOOD SPECIMENOrdering Facility: [facility] Address: [address] [place] [address] Performed By: #### A LLBG ####[facility] LABCLIA [id number] [place] [address] [place] Glucose [Mass/Vol] 186 mg/dL High 60-105 [facility] Comment on above: Order Comment: Speci men Type: ARTERIAL BLOOD SPECIMENOrdering Facility: [facility] Address: [address] [place] [address] Performed By: #### A LLBG ####[facility] LABCLIA [id number] [place] [id number] [place] HCO3 (Bld) [Moles/Vol] 25 mmol/L Normal 22-26 [facility] Comment on above: Order Comment: Speci men Type: ARTERIAL BLOOD SPECIMENOrdering Facility: [facility] Address: [address] [place] [address] Performed By: #### A LLBG ####[facility] LABCLIA [id number] [place] [address] [place] Hematocrit (Bld) [Volume fraction] 35.1 % Low 39.0-51.0 [facility] Comment on above: Order Comment: Speci men Type: ARTERIAL BLOOD SPECIMENOrdering Facility: [facility] Address: [address] [place] [address] Performed By: #### A LLBG ####[facility] LABCLIA [id number] [place] [address] [place] Hemoglobin (Bld) [Mass/Vol] 11.4 g/dL Low 13.0-17.0 [facility] Comment on above: Order Comment: Speci men Type: ARTERIAL BLOOD SPECIMENOrdering Facility: [facility] Address: [address] [place] [address] Performed By: #### A LLBG ####[facility] LABCLIA [id number] [place] [address] [place] Lactate [Moles/Vol] 1.0 mmol/L Normal 0.5-2.2 [facility] Comment on above: Order Comment: Speci men Type: ARTERIAL BLOOD SPECIMENOrdering Facility: [facility] Address: [address] [place] [address] Performed By: #### A LLBG ####[facility] LABCLIA [id number] [place] [address] [place] LITERS 4 Liters/min Normal [facility] Comment on above: Order Comment: Speci men Type: ARTERIAL BLOOD SPECIMENOrdering Facility: [facility] Address: [address] [place] [address] Performed By: #### A LLBG ####[facility] LABCLIA [id number] [place] [id number] [place] Methemoglobin (Bld) [Mass fraction] 1.0 % Normal 0.0-1.5 [facility] Comment on above: Order Comment: Speci men Type: ARTERIAL BLOOD SPECIMENOrdering Facility: [facility] Address: [address] [place] [address] Performed By: #### A LLBG ####[facility] LABCLIA [id number] [place] [address] [place] O2 THERAPY NC = Nasal Cannula Normal [facility] Comment on above: Order Comment: Speci men Type: ARTERIAL BLOOD SPECIMENOrdering Facility: [facility] Address: [address] [place] [address] Performed By: #### A LLBG ####[facility] LABCLIA [id number] [place] [address] [place] Oxygen (Bld) [Partial pressure] 88 mm Hg Normal 85-95 [facility] Comment on above: Order Comment: Speci men Type: ARTERIAL BLOOD SPECIMENOrdering Facility: [facility] Address: [address] [place] [address] Performed By: #### A LLBG ####[facility] LABCLIA [id number] [place] [address] [place] Oxyhemoglobin (BldA) [Mass fraction] 95 % Normal 95-98 [facility] Comment on above: Order Comment: Speci men Type: ARTERIAL BLOOD SPECIMENOrdering Facility: [facility] Address: [address] [place] [address] Performed By: #### A LLBG ####[facility] LABIA [id number] [place] [address] [place] pH (Bld) 7.38 [pH] Normal 7.35-7.45 [facility] Comment on above: Order Comment: Speci men Type: ARTERIAL BLOOD SPECIMENOrdering Facility: [facility] Address: [address] [place] [address] Performed By: #### A LLBG ####[facility] LABCLIA [id number] [place] [id number] [place] Potassium [Moles/Vol] 4.2 mmol/L Normal 3.5-5.0 [facility] Comment on above: Order Comment: Speci men Type: ARTERIAL BLOOD SPECIMENOrdering Facility: [facility] Address: [address] [place] [address] Performed By: #### A LLBG ####[facility] LABCLIA [id number] [place] [id number] [place] Sodium [Moles/Vol] 140 mmol/L Normal 136-144 [facility] Comment on above: Order Comment: Speci men Type: ARTERIAL BLOOD SPECIMENOrdering Facility: [facility] Address: [address] [place] [address] Performed By: #### A LLBG ####[facility] LABCLIA [id number] [place] [address] [place] Base deficit (BldA) [Moles/Vol] -1 mmol/L Normal -2-0 [facility] Comment on above: Order Comment: Speci men Type: ARTERIAL BLOOD SPECIMENOrdering Facility: [facility] Address: [address] [place] [address] Performed By: #### A LLBG ####[facility] LABCLIA [id number] [place] [address] [place] Body temperature 98.6 [degF] Normal [facility] Comment on above: Order Comment: Speci men Type: ARTERIAL BLOOD SPECIMENOrdering Facility: [facility] Address: [address] [place] [address] Performed By: #### A LLBG ####[facility] LABCLIA [id number] [place] [id number] [place] Calcium.ionized (Bld) [Mass/Vol] 1.15 mmol/L Normal 1.08-1.30 [facility] Comment on above: Order Comment: Speci men Type: ARTERIAL BLOOD SPECIMENOrdering Facility: [facility] Address: [address] [place] [address] Performed By: #### A LLBG ####[facility] LABCLIA [id number] [place] [address] [place] Calcium.ionized adjusted to pH 7.4 (BldA) [Moles/Vol] 1.13 mmol/L Normal 1.08-1.30 [facility] Comment on above: Order Comment: Speci men Type: ARTERIAL BLOOD SPECIMENOrdering Facility: [facility] Address: [address] [place] [address] Performed By: #### A LLBG ####[facility] LABIA [id number] [place] [address] [place] Carboxyhemoglobin (BldA) [Mass fraction] 1.7 % Normal 0.0-2.0 [facility] Comment on above: Order Comment: Speci men Type: ARTERIAL BLOOD SPECIMENOrdering Facility: [facility] Address: [address] [place] [address] Result Comment: Carb oxyhemoglobin Reference Range for Smokers: 2.0-8.0% Performed By: #### A LLBG ####[facility] [id number] [place] [address] [place] CO2 (Bld) [Partial pressure] 42 mm Hg Normal 36-46 [facility] Comment on above: Order Comment: Speci men Type: ARTERIAL BLOOD SPECIMENOrdering Facility: [facility] Address: [address] [place] [address] Performed By: #### A LLBG ####[facility] LABIA [id number] [place] [address] [place] Glucose [Mass/Vol] 194 mg/dL High 60-105 [facility] Comment on above: Order Comment: Speci men Type: ARTERIAL BLOOD SPECIMENOrdering Facility: [facility] Address: [address] [place] [address] Performed By: #### A LLBG ####[facility] [id number] [place] [address] [place] HCO3 (Bld) [Moles/Vol] 24 mmol/L Normal 22-26 [facility] Comment on above: Order Comment: Speci men Type: ARTERIAL BLOOD SPECIMENOrdering Facility: [facility] Address: [address] [place] [address] Performed By: #### A LLBG ####[facility] LABCLIA [id number] [place] [address] [place] Hematocrit (Bld) [Volume fraction] 35.9 % Low 39.0-51.0 [facility] Comment on above: Order Comment: Speci men Type: ARTERIAL BLOOD SPECIMENOrdering Facility: [facility] Address: [address] [place] [address] Performed By: #### A LLBG ####[facility] LABCLIA [id number] [place] [address] [place] Hemoglobin (Bld) [Mass/Vol] 11.7 g/dL Low 13.0-17.0 [facility] Comment on above: Order Comment: Speci men Type: ARTERIAL BLOOD SPECIMENOrdering Facility: [facility] Address: [address] [place] [address] Performed By: #### A LLBG ####[facility] LABCLIA [id number] [place] [address] [place] Lactate [Moles/Vol] 1.4 mmol/L Normal 0.5-2.2 [facility] Comment on above: Order Comment: Speci men Type: ARTERIAL BLOOD SPECIMENOrdering Facility: [facility] Address: [address] [place] [address] Performed By: #### A LLBG ####[facility] LABCLIA [id number] [place] [address] [place] LITERS 4 Liters/min Normal [facility] Comment on above: Order Comment: Speci men Type: ARTERIAL BLOOD SPECIMENOrdering Facility: [facility] Address: [address] [place] [address] Performed By: #### A LLBG ####[facility] LABCLIA [id number] [address] [address] [place] Methemoglobin (Bld) [Mass fraction] 1.1 % Normal 0.0-1.5 [facility] Comment on above: Order Comment: Speci men Type: ARTERIAL BLOOD SPECIMENOrdering Facility: [facility] Address: [address] [place] [address] Performed By: #### A LLBG ####[facility] LABCLIA [id number] [place] [id number] [place] O2 THERAPY NC = Nasal Cannula Normal [facility] Comment on above: Order Comment: Speci men Type: ARTERIAL BLOOD SPECIMENOrdering Facility: [facility] Address: [address] [place] [address] Performed By: #### A LLBG ####[facility] LABIA [id number] [place] [id number] [place] Oxygen (Bld) [Partial pressure] 100 mm Hg High 85-95 [facility] Comment on above: Order Comment: Speci men Type: ARTERIAL BLOOD SPECIMENOrdering Facility: [facility] Address: [address] [place] [address] Performed By: #### A LLBG ####[facility] LABIA [id number] [place] [id number] [place] Oxyhemoglobin (BldA) [Mass fraction] 96 % Normal 95-98 [facility] Comment on above: Order Comment: Speci men Type: ARTERIAL BLOOD SPECIMENOrdering Facility: [facility] Address: [address] [place], [place] [address] Performed By: #### A LLBG ####[facility] LABCLIA [id number] [address] [address] [place] pH (Bld) 7.36 [pH] Normal 7.35-7.45 [facility] Comment on above: Order Comment: Speci men Type: ARTERIAL BLOOD SPECIMENOrdering Facility: [facility] Address: [address] [place] [id number] Performed By: #### A LLBG ####[facility] LABCLIA [id number] [address] [address] [place] Potassium [Moles/Vol] 4.4 mmol/L Normal 3.5-5.0 [facility] Comment on above: Order Comment: Speci men Type: ARTERIAL BLOOD SPECIMENOrdering Facility: [facility] Address: [address] [place], [place] [address] Performed By: #### A LLBG ####[facility] LABCLIA [id number] [place] [address] [place] Sodium [Moles/Vol] 138 mmol/L Normal 136-144 [facility] Comment on above: Order Comment: Speci men Type: ARTERIAL BLOOD SPECIMENOrdering Facility: [facility] Address: [address] [place], [place] [address] Performed By: #### A LLBG ####[facility] LABCLIA [id number] [place] [address] [place] Base excess Calc (Bld) [Moles/Vol] 2 mmol/L Normal 0-2 [facility] Comment on above: Order Comment: Speci men Type: ARTERIAL BLOOD SPECIMENOrdering Facility: [facility] Address: [address] [place], [place] [address] Performed By: #### A LLBG ####[facility] LABCLIA [id number] [place] [id number] [place] Body temperature 98.6 [degF] Normal [facility] Comment on above: Order Comment: Speci men Type: ARTERIAL BLOOD SPECIMENOrdering Facility: [facility] Address: [address] [place], [place] [address] Performed By: #### A LLBG ####[facility] LABCLIA [id number] [place] [address] [place] Calcium.ionized (Bld) [Mass/Vol] 1.22 mmol/L Normal 1.08-1.30 [facility] Comment on above: Order Comment: Speci men Type: ARTERIAL BLOOD SPECIMENOrdering Facility: [facility] Address: [address] [place] [address] Performed By: #### A LLBG ####[facility] LABCLIA [id number] [place] [address] [place] Calcium.ionized adjusted to pH 7.4 (BldA) [Moles/Vol] 1.21 mmol/L Normal 1.08-1.30 [facility] Comment on above: Order Comment: Speci men Type: ARTERIAL BLOOD SPECIMENOrdering Facility: [facility] Address: [address] [place] [address] Performed By: #### A LLBG ####[facility] LABIA [id number] [place] [address] [place] Carboxyhemoglobin (BldA) [Mass fraction] 1.4 % Normal 0.0-2.0 [facility] Comment on above: Order Comment: Speci men Type: ARTERIAL BLOOD SPECIMENOrdering Facility: [facility] Address: [address] [place] [address] Result Comment: Carb oxyhemoglobin Reference Range for Smokers: 2.0-8.0% Performed By: #### A LLBG ####[facility] LABCLIA [id number] [place] [address] [place] CO2 (Bld) [Partial pressure] 47 mm Hg High 36-46 [facility] Comment on above: Order Comment: Speci men Type: ARTERIAL BLOOD SPECIMENOrdering Facility: [facility] Address: [address] [place] [address] Performed By: #### A LLBG ####[facility] LABCLIA [id number] [place] [address] [place] Glucose [Mass/Vol] 118 mg/dL High 60-105 [facility] Comment on above: Order Comment: Speci men Type: ARTERIAL BLOOD SPECIMENOrdering Facility: [facility] Address: [address] [place] [address] Performed By: #### A LLBG ####[facility] LABCLIA [id number] [place] [address] [place] HCO3 (Bld) [Moles/Vol] 27 mmol/L High 22-26 [facility] Comment on above: Order Comment: Speci men Type: ARTERIAL BLOOD SPECIMENOrdering Facility: [facility] Address: [address] [place] [address] Performed By: #### A LLBG ####[facility] LABCLIA [id number] [place] [address] [place] Hematocrit (Bld) [Volume fraction] 34.5 % Low 39.0-51.0 [facility] Comment on above: Order Comment: Speci men Type: ARTERIAL BLOOD SPECIMENOrdering Facility: [facility] Address: [address] [place] [address] Performed By: #### A LLBG ####[facility] LABCLIA [id number] [place] [address] [place] Hemoglobin (Bld) [Mass/Vol] 11.2 g/dL Low 13.0-17.0 [facility] Comment on above: Order Comment: Speci men Type: ARTERIAL BLOOD SPECIMENOrdering Facility: [facility] Address: [address] [place] [address] Performed By: #### A LLBG ####[facility] LABCLIA [id number] [place] [id number] [place] Lactate [Moles/Vol] 1.1 mmol/L Normal 0.5-2.2 [facility] Comment on above: Order Comment: Speci men Type: ARTERIAL BLOOD SPECIMENOrdering Facility: [facility] Address: [address] [place] [id number] Performed By: #### A LLBG ####[facility] LABCLIA [id number] [address] [address] [place] LITERS 4 Liters/min Normal [facility] Comment on above: Order Comment: Speci men Type: ARTERIAL BLOOD SPECIMENOrdering Facility: [facility] Address: [address] [place] [id number] Performed By: #### A LLBG ####[facility] LABCLIA [id number] [address] [place] [address] [place] Methemoglobin (Bld) [Mass fraction] 1.0 % Normal 0.0-1.5 [facility] Comment on above: Order Comment: Speci men Type: ARTERIAL BLOOD SPECIMENOrdering Facility: [facility] Address: [address] [place] [address] Performed By: #### A LLBG ####[facility] LABCLIA [id number] [address] [address] [place] O2 THERAPY NC = Nasal Cannula Normal [facility] Comment on above: Order Comment: Speci men Type: ARTERIAL BLOOD SPECIMENOrdering Facility: [facility] Address: [address] [place], [place] [address] Performed By: #### A LLBG ####[facility] LABCLIA [id number] [address] [address] [place] Oxygen (Bld) [Partial pressure] 82 mm Hg Low 85-95 [facility] Comment on above: Order Comment: Speci men Type: ARTERIAL BLOOD SPECIMENOrdering Facility: [facility] Address: [address] [place] [place] [id number] Performed By: #### A LLBG ####[facility] LABCLIA [id number] [address] [place] [address] [place] Oxyhemoglobin (BldA) [Mass fraction] 94 % Low 95-98 [facility] Comment on above: Order Comment: Speci men Type: ARTERIAL BLOOD SPECIMENOrdering Facility: [facility] Address: [address] [place] [address] Performed By: #### A LLBG ####[facility] LABCLIA [id number] [address] [address] [place] pH (Bld) 7.38 [pH] Normal 7.35-7.45 [facility] Comment on above: Order Comment: Speci men Type: ARTERIAL BLOOD SPECIMENOrdering Facility: [facility] Address: [address] [place] [address] Performed By: #### A LLBG ####[facility] LABCLIA [id number] [place] [address] [place] Potassium [Moles/Vol] 4.1 mmol/L Normal 3.5-5.0 [facility] Comment on above: Order Comment: Speci men Type: ARTERIAL BLOOD SPECIMENOrdering Facility: [facility] Address: [address] [place] [address] Performed By: #### A LLBG ####[facility] LABCLIA [id number] [place] [address] [place] Sodium [Moles/Vol] 139 mmol/L Normal 136-144 [facility] Comment on above: Order Comment: Speci men Type: ARTERIAL BLOOD SPECIMENOrdering Facility: [facility] Address: [address] [place], [place] [address] Performed By: #### A LLBG ####[facility] LABCLIA [id number] [address] [address] [place] CASE MGT INIT ASSESon 2024 CASE MGT INIT ASSES Normal [facility] CBC panel Auto (Bld)on 12-26 Erythrocyte distribution width (RBC) [Ratio] 12.7 % Normal 11.5-15.0 [facility] Comment on above: Order Comment: Speci men Type: BLOOD SPECIMENOrdering Facility: [facility] Address: [address] [place] [address] Performed By: #### 5 8410-2 ####[facility] LABCLIA [id number] [place] [address] [place] Hematocrit (Bld) [Volume fraction] 32.5 % Low 39.0-51.0 [facility] Comment on above: Order Comment: Speci men Type: BLOOD SPECIMENOrdering Facility: [facility] Address: [address] [place] [address] Performed By: #### 5 8410-2 ####[facility] LABCLIA [id number] [place] [address] [place] Hemoglobin (Bld) [Mass/Vol] 11.2 g/dL Low 13.0-17.0 [facility] Comment on above: Order Comment: Speci men Type: BLOOD SPECIMENOrdering Facility: [facility] Address: [address] [place] [address] Performed By: #### 5 8410-2 ####[facility] LABCLIA [id number] [place] [address] [place] MCH (RBC) [Entitic mass] 30.7 pg Normal 26.0-34.0 [facility] Comment on above: Order Comment: Speci men Type: BLOOD SPECIMENOrdering Facility: [facility] Address: [address] [place] [address] Performed By: #### 5 8410-2 ####[facility] LABCLIA [id number] [place] [address] [place] MCHC (RBC) [Mass/Vol] 34.5 g/dL Normal 30.5-36.0 [facility] Comment on above: Order Comment: Speci men Type: BLOOD SPECIMENOrdering Facility: [facility] Address: [address] [place] [address] Performed By: #### 5 8410-2 ####[facility] LABCLIA [id number] [place] [address] [place] MCV (RBC) [Entitic vol] 89.0 fL Normal 80.0-100.0 [facility] Comment on above: Order Comment: Speci men Type: BLOOD SPECIMENOrdering Facility: [facility] Address: [address] [place] [address] Performed By: #### 5 8410-2 ####[facility] [id number] [place] [address] [place] Nucleated RBC (Bld) [#/Vol] 10*3/uL Normal <0.01 [facility] Comment on above: Order Comment: Speci men Type: BLOOD SPECIMENOrdering Facility: [facility] Address: [address] [place] [address] Performed By: #### 5 8410-2 ####[facility] [id number] [place] [address] [place] Platelet mean volume (Bld) [Entitic vol] 10.6 fL Normal 9.0-12.7 [facility] Comment on above: Order Comment: Speci men Type: BLOOD SPECIMENOrdering Facility: [facility] Address: [address] [place] [address] Performed By: #### 5 8410-2 ####[facility] [id number] [place] [address] [place] Platelets (Bld) [#/Vol] 136 10*3/uL Low 150-400 [facility] Comment on above: Order Comment: Speci men Type: BLOOD SPECIMENOrdering Facility: [facility] Address: [address] [place] [address] Performed By: #### 5 8410-2 ####[facility] [id number] [place] [address] [place] RBC (Bld) [#/Vol] 3.65 10*6/uL Low 4.20-6.00 [facility] Comment on above: Order Comment: Speci men Type: BLOOD SPECIMENOrdering Facility: [facility] Address: [address] [place] [address] Performed By: #### 5 8410-2 ####[facility] LABCLIA [id number] [address] [address] [place] WBC (Bld) [#/Vol] 11.24 10*3/uL High 3.70-11.00 [facility] Comment on above: Order Comment: Speci men Type: BLOOD SPECIMENOrdering Facility: [facility] Address: [address] [place] [address] Performed By: #### 5 8410-2 ####[facility] LABCLIA [id number] [place] [address] [place] CONSULTon 12-26-2024 CONSULT Normal [facility] Comprehensive metabolic 2000 panelon 12-26-2024 Albumin [Mass/Vol] 3.4 g/dL Low 3.9-4.9 [facility] Comment on above: Order Comment: Speci men Type: BLOOD SPECIMENOrdering Facility: [facility] Address: [address] [place] [address] Performed By: #### H STNT, 78793-8 ####[facility]CL[facility] [id number] [place] [id number] [place] ALP [Catalytic activity/Vol] 56 U/L Normal 38-113 [facility] Comment on above: Order Comment: Speci men Type: BLOOD SPECIMENOrdering Facility: [facility] Address: [address] [place] [address] Performed By: #### H STNT, 36573-4 ####[facility] LABCL[facility] [id number] [address] [place] [address] [place] ALT [Catalytic activity/Vol] 39 U/L Normal 10-54 [facility] Comment on above: Order Comment: Speci men Type: BLOOD SPECIMENOrdering Facility: [facility] Address: [address] [place], [place] [address] Performed By: #### H STNT, 05610-2 ####[facility]CL[facility] [id number] [address] [address] [place] Anion gap [Moles/Vol] 9 mmol/L Normal 8-15 [facility] Comment on above: Order Comment: Speci men Type: BLOOD SPECIMENOrdering Facility: [facility] Address: [address] [place] [address] Performed By: #### H STNT, 57963-7 ####[facility]CL[facility] [id number] [place] [address] [place] AST [Catalytic activity/Vol] 120 U/L High 14-40 [facility] Comment on above: Order Comment: Speci men Type: BLOOD SPECIMENOrdering Facility: [facility] Address: [address] [place] [address] Performed By: #### H STNT, 12291-8 ####[facility]CL[facility] [id number] [place] [address] [place] Bilirubin [Mass/Vol] 0.7 mg/dL Normal 0.2-1.3 [facility] Comment on above: Order Comment: Speci men Type: BLOOD SPECIMENOrdering Facility: [facility] Address: [address] [place], [place] [address] Performed By: #### H STNT, 25909-6 ####[facility]CL[facility] [id number] [place] [address] [place] Calcium [Mass/Vol] 8.1 mg/dL Low 8.5-10.2 [facility] Comment on above: Order Comment: Speci men Type: BLOOD SPECIMENOrdering Facility: [facility] Address: [address] [place], [place] [address] Performed By: #### H STNT, 33388-5 ####[facility]CL[facility] [id number] [address] [address] [place] Chloride [Moles/Vol] 107 mmol/L Normal 98-107 [facility] Comment on above: Order Comment: Speci men Type: BLOOD SPECIMENOrdering Facility: [facility] Address: [address] [place] [address] Performed By: #### H STNT, 15062-6 ####[facility] [id number] [place] [address] [place] CO2 [Moles/Vol] 24 mmol/L Normal 22-30 [facility] Comment on above: Order Comment: Speci men Type: BLOOD SPECIMENOrdering Facility: [facility] Address: [address] [place] [address] Performed By: #### H STNT, 10784-0 ####[facility]CL[facility] [id number] [place] [address] [place] Creatinine [Mass/Vol] 0.95 mg/dL Normal 0.73-1.22 [facility] Comment on above: Order Comment: Speci men Type: BLOOD SPECIMENOrdering Facility: [facility] Address: [address] [place] [address] Performed By: #### H STNT, 21139-6 ####[facility] [id number] [place] [address] [place] [facility] Creatinine and Glomerular filtration rate.predicted panel (S/P/Bld) 101 mL/min/1.73m??? Normal >=60 [facility] Comment on above: Order Comment: Speci men Type: BLOOD SPECIMENOrdering Facility: [facility] Address: [address] [place] [address] Result Comment: Rosanna mated Glomerular Filtration Rate [...] actual GFR. Performed By: #### H LARISSA, 36741-2 ####[facility] [id number] [address] [address] [place] Glucose [Mass/Vol] 150 mg/dL High 74-99 [facility] Comment on above: Order Comment: Speci men Type: BLOOD SPECIMENOrdering Facility: [facility] Address: [address] [place] [id number] Result Comment: The [place] [employer] (ADA) provides guidance for cutoff [...] Standards of Medical Care in Diabetes 2016, [place] [employer]. Diabetes Care. 2016.39(Suppl 1). Performed By: #### H LARISSA, ####[facility]CL[facility] [id number] [address] [address] [place] Potassium [Moles/Vol] 4.4 mmol/L Normal 3.7-5.1 [facility] Comment on above: Order Comment: Speci men Type: BLOOD SPECIMENOrdering Facility: [facility] Address: [address] [place] [address] Performed By: #### H LARISSA, 12404-2 ####[facility] [id number] [facility] [address] [address] [place] Protein [Mass/Vol] 5.2 g/dL Low 6.3-8.0 [facility] Comment on above: Order Comment: Speci men Type: BLOOD SPECIMENOrdering Facility: [facility] Address: [address] [place] [address] Performed By: #### H STNT, 19882-3 ####[facility]CL[facility] [id number] [address] [address] [place] Sodium [Moles/Vol] 140 mmol/L Normal 136-144 [facility] Comment on above: Order Comment: Speci men Type: BLOOD SPECIMENOrdering Facility: [facility] Address: [address] [place] [address] Performed By: #### H STNT, 28179-4 ####[facility]CL[facility] [id number] [place] [address] [place] Urea nitrogen [Mass/Vol] 19 mg/dL Normal 9-24 [facility] Comment on above: Order Comment: Speci men Type: BLOOD SPECIMENOrdering Facility: [facility] Address: [address] [place] [address] Performed By: #### H STNT, 39342-1 ####[facility]CL[facility] [id number] [place] [address] [place] HIGH SENSITIVITY TROPONIN To n 12-26-2024 Troponin T.cardiac High sensitivity method [Mass/Vol] 242 ng/L High <12 [facility] Comment on above: Order Comment: Speci men Type: BLOOD SPECIMENOrdering Facility: [facility] Address: [address] [place] [address] Performed By: #### H STNT, 93720-0 ####[facility] [id number] [place] [address] [place] PT panel Coag (PPP)on 2024 INR Coag (PPP) [Relative time] 1.2 {INR} Normal 0.9-1.3 [facility] Comment on above: Order Comment: Speci men Type: BLOOD SPECIMENOrdering Facility: [facility] Address: [address] [place] [address] Result Comment: Humaira min K Antagonist (VKA) Therapeutic Range: INR 2 to 3 (Target INR of 2.5)Note: For patients treated with VKA drugs, such as warfarin, the [place] [employer] 2012 Guideline recommends [...] 2.5 to 3.5 (target INR of 3).Delores WILLIS, et al. Chest 2012, 141:7S-47SCinda GRADY, et al. [facility] 2017, 70: 252-289 Performed By: #### 3 4528-0 ####[facility] [id number] [place] [address] [place] PT Coag (PPP) [Time] 12.4 s Normal 9.7-13.0 [facility] Comment on above: Order Comment: Speci men Type: BLOOD SPECIMENOrdering Facility: [facility] Address: [address] [place] [address] Performed By: #### 3 4528-0 ####[facility] [id number] [place] [address] [place] XR CHEST 1V FRONTAL PORTon 0 12-26-2024 XR CHEST 1V FRONTAL PORT Normal [facility] ANES POSTPROC EVALon 025 ANES POSTPROC EVAL Normal [facility] ANES PRE-OPon 12-25-2024 ANES PRE-OP Normal [facility] ARTERIAL BLOOD GASESon 12-25 Base excess Calc (Bld) [Moles/Vol] 1 mmol/L Normal 0-2 [facility] Comment on above: Order Comment: Speci men Type: ARTERIAL BLOOD SPECIMENOrdering Facility: [facility] Address: [address] [place] [address] Performed By: #### A LLBG ####[facility] [id number] [place] [address] [place] Body temperature 98.6 [degF] Normal [facility] Comment on above: Order Comment: Speci men Type: ARTERIAL BLOOD SPECIMENOrdering Facility: [facility] Address: [address] [place] [address] Performed By: #### A LLBG ####[facility] [id number] [place] [address] [place] Calcium.ionized (Bld) [Mass/Vol] 1.19 mmol/L Normal 1.08-1.30 [facility] Comment on above: Order Comment: Speci men Type: ARTERIAL BLOOD SPECIMENOrdering Facility: [facility] Address: [address] [place] [address] Performed By: #### A LLBG ####[facility] [id number] [place] [address] [place] Calcium.ionized adjusted to pH 7.4 (BldA) [Moles/Vol] 1.17 mmol/L Normal 1.08-1.30 [facility] Comment on above: Order Comment: Speci men Type: ARTERIAL BLOOD SPECIMENOrdering Facility: [facility] Address: [address] [place] [address] Performed By: #### A LLBG ####[facility] [id number] [place] [address] [place] Carboxyhemoglobin (BldA) [Mass fraction] 1.4 % Normal 0.0-2.0 [facility] Comment on above: Order Comment: Speci men Type: ARTERIAL BLOOD SPECIMENOrdering Facility: [facility] Address: [address] [place] [address] Result Comment: Carb oxyhemoglobin Reference Range for Smokers: 2.0-8.0% Performed By: #### A LLBG ####[facility] [id number] [place] [address] [place] CO2 (Bld) [Partial pressure] 46 mm Hg Normal 36-46 [facility] Comment on above: Order Comment: Speci men Type: ARTERIAL BLOOD SPECIMENOrdering Facility: [facility] Address: [address] [place] [address] Performed By: #### A LLBG ####[facility]CL[facility] [id number] [place] [address] [place] Glucose [Mass/Vol] 171 mg/dL High 60-105 [facility] Comment on above: Order Comment: Speci men Type: ARTERIAL BLOOD SPECIMENOrdering Facility: [facility] Address: [address] [place] [address] Performed By: #### A LLBG ####[facility] [id number] [place] [address] [place] HCO3 (Bld) [Moles/Vol] 26 mmol/L Normal 22-26 [facility] Comment on above: Order Comment: Speci men Type: ARTERIAL BLOOD SPECIMENOrdering Facility: [facility] Address: [address] [place] [address] Performed By: #### A LLBG ####[facility]CL[facility] [id number] [place] [id number] [place] Hematocrit (Bld) [Volume fraction] 34.6 % Low 39.0-51.0 [facility] Comment on above: Order Comment: Speci men Type: ARTERIAL BLOOD SPECIMENOrdering Facility: [facility] Address: [address] [place] [address] Performed By: #### A LLBG ####[facility] [id number] [place] [id number] [place] Hemoglobin (Bld) [Mass/Vol] 11.2 g/dL Low 13.0-17.0 [facility] Comment on above: Order Comment: Speci men Type: ARTERIAL BLOOD SPECIMENOrdering Facility: [facility] Address: [address] [place] [address] Performed By: #### A LLBG ####[facility] [id number] [place] [address] [place] Lactate [Moles/Vol] 1.2 mmol/L Normal 0.5-2.2 [facility] Comment on above: Order Comment: Speci men Type: ARTERIAL BLOOD SPECIMENOrdering Facility: [facility] Address: [address] [place] [address] Performed By: #### A LLBG ####[facility] [id number] [place] [address] [place] LITERS 4 Liters/min Normal [facility] Comment on above: Order Comment: Speci men Type: ARTERIAL BLOOD SPECIMENOrdering Facility: [facility] Address: [address] [place] [address] Performed By: #### A LLBG ####[facility]CL[facility] [id number] [place] [address] [place] Methemoglobin (Bld) [Mass fraction] 0.7 % Normal 0.0-1.5 [facility] Comment on above: Order Comment: Speci men Type: ARTERIAL BLOOD SPECIMENOrdering Facility: [facility] Address: [address] [place] [address] Performed By: #### A LLBG ####[facility] [id number] [place] [address] [place] O2 THERAPY NC = Nasal Cannula Normal [facility] Comment on above: Order Comment: Speci men Type: ARTERIAL BLOOD SPECIMENOrdering Facility: [facility] Address: [address] [place] [address] Performed By: #### A LLBG ####[facility] [id number] [address] [address] [place] Oxygen (Bld) [Partial pressure] 117 mm Hg High 85-95 [facility] Comment on above: Order Comment: Speci men Type: ARTERIAL BLOOD SPECIMENOrdering Facility: [facility] Address: [address] [place] [address] Performed By: #### A LLBG ####[facility] [id number] [place] [address] [place] Oxyhemoglobin (BldA) [Mass fraction] 97 % Normal 95-98 [facility] Comment on above: Order Comment: Speci men Type: ARTERIAL BLOOD SPECIMENOrdering Facility: [facility] Address: [address] [place] [address] Performed By: #### A LLBG ####[facility] [id number] [place] [address] [place] pH (Bld) 7.38 [pH] Normal 7.35-7.45 [facility] Comment on above: Order Comment: Speci men Type: ARTERIAL BLOOD SPECIMENOrdering Facility: [facility] Address: [address] [place] [address] Performed By: #### A LLBG ####[facility] [id number] [place] [address] [place] Potassium [Moles/Vol] 4.2 mmol/L Normal 3.5-5.0 [facility] Comment on above: Order Comment: Speci men Type: ARTERIAL BLOOD SPECIMENOrdering Facility: [facility] Address: [address] [place] [address] Performed By: #### A LLBG ####[facility] [id number] [place] [id number] [place] Sodium [Moles/Vol] 139 mmol/L Normal 136-144 [facility] Comment on above: Order Comment: Speci men Type: ARTERIAL BLOOD SPECIMENOrdering Facility: [facility] Address: [address] [place] [address] Performed By: #### A LLBG ####[facility] [id number] [place] [address] [place] Base excess Calc (Bld) [Moles/Vol] 0 mmol/L Normal 0-2 [facility] Comment on above: Order Comment: Speci men Type: ARTERIAL BLOOD SPECIMENOrdering Facility: [facility] Address: [address] [place] [address] Performed By: #### A LLBG ####[facility] [id number] [place] [address] [place] Body temperature 98.6 [degF] Normal [facility] Comment on above: Order Comment: Speci men Type: ARTERIAL BLOOD SPECIMENOrdering Facility: [facility] Address: [address] [place] [address] Performed By: #### A LLBG ####[facility] [id number] [place] [address] [place] Calcium.ionized (Bld) [Mass/Vol] 1.17 mmol/L Normal 1.08-1.30 [facility] Comment on above: Order Comment: Speci men Type: ARTERIAL BLOOD SPECIMENOrdering Facility: [facility] Address: [address] [place] [address] Performed By: #### A LLBG ####[facility] [id number] [place] [address] [place] Calcium.ionized adjusted to pH 7.4 (BldA) [Moles/Vol] 1.15 mmol/L Normal 1.08-1.30 [facility] Comment on above: Order Comment: Speci men Type: ARTERIAL BLOOD SPECIMENOrdering Facility: [facility] Address: [address] [place] [address] Performed By: #### A LLBG ####[facility] [id number] [place] [address] [place] Carboxyhemoglobin (BldA) [Mass fraction] 1.9 % Normal 0.0-2.0 [facility] Comment on above: Order Comment: Speci men Type: ARTERIAL BLOOD SPECIMENOrdering Facility: [facility] Address: [address] [place] [address] Result Comment: Carb oxyhemoglobin Reference Range for Smokers: 2.0-8.0% Performed By: #### A LLBG ####[facility] [id number] [place] [address] [place] CO2 (Bld) [Partial pressure] 44 mm Hg Normal 36-46 [facility] Comment on above: Order Comment: Speci men Type: ARTERIAL BLOOD SPECIMENOrdering Facility: [facility] Address: [address] [place] [address] Performed By: #### A LLBG ####[facility] [id number] [place] [address] [place] Glucose [Mass/Vol] 223 mg/dL High 60-105 [facility] Comment on above: Order Comment: Speci men Type: ARTERIAL BLOOD SPECIMENOrdering Facility: [facility] Address: [address] [place] [address] Performed By: #### A LLBG ####[facility] [id number] [place] [address] [place] HCO3 (Bld) [Moles/Vol] 25 mmol/L Normal 22-26 [facility] Comment on above: Order Comment: Speci men Type: ARTERIAL BLOOD SPECIMENOrdering Facility: [facility] Address: [address] [place] [address] Performed By: #### A LLBG ####[facility] [id number] [place] [address] [place] Hematocrit (Bld) [Volume fraction] 35.7 % Low 39.0-51.0 [facility] Comment on above: Order Comment: Speci men Type: ARTERIAL BLOOD SPECIMENOrdering Facility: [facility] Address: [address] [place] [address] Performed By: #### A LLBG ####[facility] [id number] [place] [id number] [place] Hemoglobin (Bld) [Mass/Vol] 11.6 g/dL Low 13.0-17.0 [facility] Comment on above: Order Comment: Speci men Type: ARTERIAL BLOOD SPECIMENOrdering Facility: [facility] Address: [address] [place] [address] Performed By: #### A LLBG ####[facility] [id number] [place] [address] [place] Lactate [Moles/Vol] 1.2 mmol/L Normal 0.5-2.2 [facility] Comment on above: Order Comment: Speci men Type: ARTERIAL BLOOD SPECIMENOrdering Facility: [facility] Address: [address] [place] [address] Performed By: #### A LLBG ####[facility] [id number] [place] [address] [place] LITERS 4 Liters/min Normal [facility] Comment on above: Order Comment: Speci men Type: ARTERIAL BLOOD SPECIMENOrdering Facility: [facility] Address: [address] [place] [address] Performed By: #### A LLBG ####[facility] [id number] [place] [id number] [place] Methemoglobin (Bld) [Mass fraction] 1.1 % Normal 0.0-1.5 [facility] Comment on above: Order Comment: Speci men Type: ARTERIAL BLOOD SPECIMENOrdering Facility: [facility] Address: [address] [place] [address] Performed By: #### A LLBG ####[facility] [id number] [address] [address] [place] O2 THERAPY NC = Nasal Cannula Normal [facility] Comment on above: Order Comment: Speci men Type: ARTERIAL BLOOD SPECIMENOrdering Facility: [facility] Address: [address] [place] [address] Performed By: #### A LLBG ####[facility] [id number] [place] [id number] [place] Oxygen (Bld) [Partial pressure] 126 mm Hg High 85-95 [facility] Comment on above: Order Comment: Speci men Type: ARTERIAL BLOOD SPECIMENOrdering Facility: [facility] Address: [address] [place] [address] Performed By: #### A LLBG ####[facility] [id number] [place] [address] [place] Oxyhemoglobin (BldA) [Mass fraction] 96 % Normal 95-98 [facility] Comment on above: Order Comment: Speci men Type: ARTERIAL BLOOD SPECIMENOrdering Facility: [facility] Address: [address] [place] [address] Performed By: #### A LLBG ####[facility] [id number] [place] [id number] [place] pH (Bld) 7.37 [pH] Normal 7.35-7.45 [facility] Comment on above: Order Comment: Speci men Type: ARTERIAL BLOOD SPECIMENOrdering Facility: [facility] Address: [address] [place], [place] [address] Performed By: #### A LLBG ####[facility] [id number] [place] [id number] [place] Potassium [Moles/Vol] 4.3 mmol/L Normal 3.5-5.0 [facility] Comment on above: Order Comment: Speci men Type: ARTERIAL BLOOD SPECIMENOrdering Facility: [facility] Address: [address] [place] [address] Performed By: #### A LLBG ####[facility] [id number] [place] [address] [place] Sodium [Moles/Vol] 138 mmol/L Normal 136-144 [facility] Comment on above: Order Comment: Speci men Type: ARTERIAL BLOOD SPECIMENOrdering Facility: [facility] Address: [address] [place] [address] Performed By: #### A LLBG ####[facility] LABCLIA [id number] [place] [address] [place] Base excess Calc (Bld) [Moles/Vol] 0 mmol/L Normal 0-2 [facility] Comment on above: Order Comment: Speci men Type: ARTERIAL BLOOD SPECIMENOrdering Facility: [facility] Address: [address] [place] [address] Performed By: #### A LLBG ####[facility] LABIA [id number] [place] [address] [place] Body temperature 98.6 [degF] Normal [facility] Comment on above: Order Comment: Speci men Type: ARTERIAL BLOOD SPECIMENOrdering Facility: [facility] Address: [address] [place] [address] Performed By: #### A LLBG ####[facility] LABCLIA [id number] [place] [address] [place] Calcium.ionized (Bld) [Mass/Vol] 1.16 mmol/L Normal 1.08-1.30 [facility] Comment on above: Order Comment: Speci men Type: ARTERIAL BLOOD SPECIMENOrdering Facility: [facility] Address: [address] [place] [address] Performed By: #### A LLBG ####[facility] LABCLIA [id number] [place] [address] [place] Calcium.ionized adjusted to pH 7.4 (BldA) [Moles/Vol] 1.14 mmol/L Normal 1.08-1.30 [facility] Comment on above: Order Comment: Speci men Type: ARTERIAL BLOOD SPECIMENOrdering Facility: [facility] Address: [address] [place] [address] Performed By: #### A LLBG ####[facility] LABCLIA [id number] [place] [address] [place] Carboxyhemoglobin (BldA) [Mass fraction] 1.7 % Normal 0.0-2.0 [facility] Comment on above: Order Comment: Speci men Type: ARTERIAL BLOOD SPECIMENOrdering Facility: [facility] Address: [address] [place] [address] Result Comment: Carb oxyhemoglobin Reference Range for Smokers: 2.0-8.0% Performed By: #### A LLBG ####[facility] LABCLIA [id number] [place] [address] [place] CO2 (Bld) [Partial pressure] 44 mm Hg Normal 36-46 [facility] Comment on above: Order Comment: Speci men Type: ARTERIAL BLOOD SPECIMENOrdering Facility: [facility] Address: [address] [place] [address] Performed By: #### A LLBG ####[facility] LABCLIA [id number] [place] [address] [place] Glucose [Mass/Vol] 209 mg/dL High 60-105 [facility] Comment on above: Order Comment: Speci men Type: ARTERIAL BLOOD SPECIMENOrdering Facility: [facility] Address: [address] [place] [address] Performed By: #### A LLBG ####[facility] LABCLIA [id number] [place] [address] [place] HCO3 (Bld) [Moles/Vol] 25 mmol/L Normal 22-26 [facility] Comment on above: Order Comment: Speci men Type: ARTERIAL BLOOD SPECIMENOrdering Facility: [facility] Address: [address] [place] [address] Performed By: #### A LLBG ####[facility] LABIA [id number] [place] [id number] [place] Hematocrit (Bld) [Volume fraction] 36.2 % Low 39.0-51.0 [facility] Comment on above: Order Comment: Speci men Type: ARTERIAL BLOOD SPECIMENOrdering Facility: [facility] Address: [address] [place] [address] Performed By: #### A LLBG ####[facility] LABIA [id number] [place] [address] [place] Hemoglobin (Bld) [Mass/Vol] 11.8 g/dL Low 13.0-17.0 [facility] Comment on above: Order Comment: Speci men Type: ARTERIAL BLOOD SPECIMENOrdering Facility: [facility] Address: [address] [place] [address] Performed By: #### A LLBG ####[facility] LABIA [id number] [place] [address] [place] Lactate [Moles/Vol] 1.2 mmol/L Normal 0.5-2.2 [facility] Comment on above: Order Comment: Speci men Type: ARTERIAL BLOOD SPECIMENOrdering Facility: [facility] Address: [address] [place] [address] Performed By: #### A LLBG ####[facility] LABIA [id number] [place] [address] [place] LITERS 2 Liters/min Normal [facility] Comment on above: Order Comment: Speci men Type: ARTERIAL BLOOD SPECIMENOrdering Facility: [facility] Address: [address] [place] [address] Performed By: #### A LLBG ####[facility] LABCLIA [id number] [address] [place] [address] [place] Methemoglobin (Bld) [Mass fraction] 0.9 % Normal 0.0-1.5 [facility] Comment on above: Order Comment: Speci men Type: ARTERIAL BLOOD SPECIMENOrdering Facility: [facility] Address: [address] [place] [address] Performed By: #### A LLBG ####[facility] LABCLIA [id number] [address] [place] [address] [place] O2 THERAPY NC = Nasal Cannula Normal [facility] Comment on above: Order Comment: Speci men Type: ARTERIAL BLOOD SPECIMENOrdering Facility: [facility] Address: [address] [place] [address] Performed By: #### A LLBG ####[facility] LABIA [id number] [place] [id number] [place] Oxygen (Bld) [Partial pressure] 77 mm Hg Low 85-95 [facility] Comment on above: Order Comment: Speci men Type: ARTERIAL BLOOD SPECIMENOrdering Facility: [facility] Address: [address] [place] [address] Performed By: #### A LLBG ####[facility] LABIA [id number] [place] [id number] [place] Oxyhemoglobin (BldA) [Mass fraction] 93 % Low 95-98 [facility] Comment on above: Order Comment: Speci men Type: ARTERIAL BLOOD SPECIMENOrdering Facility: [facility] Address: [address] [place], [place] [address] Performed By: #### A LLBG ####[facility] LABIA [id number] [address] [address] [place] pH (Bld) 7.37 [pH] Normal 7.35-7.45 [facility] Comment on above: Order Comment: Speci men Type: ARTERIAL BLOOD SPECIMENOrdering Facility: [facility] Address: [address] [place] [address] Performed By: #### A LLBG ####[facility] LABCLIA [id number] [place] [id number] [place] Potassium [Moles/Vol] 4.3 mmol/L Normal 3.5-5.0 [facility] Comment on above: Order Comment: Speci men Type: ARTERIAL BLOOD SPECIMENOrdering Facility: [facility] Address: [address] [place] [address] Performed By: #### A LLBG ####[facility] LABCLIA [id number] [place] [address] [place] Sodium [Moles/Vol] 139 mmol/L Normal 136-144 [facility] Comment on above: Order Comment: Speci men Type: ARTERIAL BLOOD SPECIMENOrdering Facility: [facility] Address: [address] [place] [address] Performed By: #### A LLBG ####[facility] LABCLIA [id number] [place] [address] [place] Base excess Calc (Bld) [Moles/Vol] 0 mmol/L Normal 0-2 [facility] Comment on above: Order Comment: Speci men Type: ARTERIAL BLOOD SPECIMENOrdering Facility: [facility] Address: [address] [place] [address] Performed By: #### A LLBG ####[facility] LABCLIA [id number] [place] [id number] [place] Body temperature 98.6 [degF] Normal [facility] Comment on above: Order Comment: Speci men Type: ARTERIAL BLOOD SPECIMENOrdering Facility: [facility] Address: [address] [place], [place] [address] Performed By: #### A LLBG ####[facility] LABCLIA [id number] [address] [id number] [address] [place] Calcium.ionized (Bld) [Mass/Vol] 1.19 mmol/L Normal 1.08-1.30 [facility] Comment on above: Order Comment: Speci men Type: ARTERIAL BLOOD SPECIMENOrdering Facility: [facility] Address: [address] [place] [address] Performed By: #### A LLBG ####[facility] LABCLIA [id number] [place] [address] [place] Calcium.ionized adjusted to pH 7.4 (BldA) [Moles/Vol] 1.16 mmol/L Normal 1.08-1.30 [facility] Comment on above: Order Comment: Speci men Type: ARTERIAL BLOOD SPECIMENOrdering Facility: [facility] Address: [address] [place] [address] Performed By: #### A LLBG ####[facility] LABCLIA [id number] [address] [place] Carboxyhemoglobin (BldA) [Mass fraction] 1.6 % Normal 0.0-2.0 [facility] Comment on above: Order Comment: Speci men Type: ARTERIAL BLOOD SPECIMENOrdering Facility: [facility] Address: [address] [place] [address] Result Comment: Carb oxyhemoglobin Reference Range for Smokers: 2.0-8.0% Performed By: #### A LLBG ####[facility] LABCLIA [id number] [place] [address] [place] CO2 (Bld) [Partial pressure] 47 mm Hg High 36-46 [facility] Comment on above: Order Comment: Speci men Type: ARTERIAL BLOOD SPECIMENOrdering Facility: [facility] Address: [address] [place] [address] Performed By: #### A LLBG ####[facility] LABCLIA [id number] [place] [address] [place] Glucose [Mass/Vol] 241 mg/dL High 60-105 [facility] Comment on above: Order Comment: Speci men Type: ARTERIAL BLOOD SPECIMENOrdering Facility: [facility] Address: [address] [place] [address] Performed By: #### A LLBG ####[facility] LABCLIA [id number] [address] [address] [place] HCO3 (Bld) [Moles/Vol] 26 mmol/L Normal 22-26 [facility] Comment on above: Order Comment: Speci men Type: ARTERIAL BLOOD SPECIMENOrdering Facility: [facility] Address: [address] [place] [address] Performed By: #### A LLBG ####[facility] LABCLIA [id number] [place] [address] [place] Hematocrit (Bld) [Volume fraction] 37.6 % Low 39.0-51.0 [facility] Comment on above: Order Comment: Speci men Type: ARTERIAL BLOOD SPECIMENOrdering Facility: [facility] Address: [address] [place] [address] Performed By: #### A LLBG ####[facility] LABCLIA [id number] [place] [address] [place] Hemoglobin (Bld) [Mass/Vol] 12.2 g/dL Low 13.0-17.0 [facility] Comment on above: Order Comment: Speci men Type: ARTERIAL BLOOD SPECIMENOrdering Facility: [facility] Address: [address] [place] [address] Performed By: #### A LLBG ####[facility] LABCLIA [id number] [place] [id number] [place] Lactate [Moles/Vol] 1.5 mmol/L Normal 0.5-2.2 [facility] Comment on above: Order Comment: Speci men Type: ARTERIAL BLOOD SPECIMENOrdering Facility: [facility] Address: [address], [place] [address] Performed By: #### A LLBG ####[facility] LABCLIA [id number] [address] [address] [place] LITERS 2 Liters/min Normal [facility] Comment on above: Order Comment: Speci men Type: ARTERIAL BLOOD SPECIMENOrdering Facility: [facility] Address: [address] [place], [place] [address] Performed By: #### A LLBG ####[facility] LABCLIA [id number] [address] [place] [address] [place] Methemoglobin (Bld) [Mass fraction] 0.6 % Normal 0.0-1.5 [facility] Comment on above: Order Comment: Speci men Type: ARTERIAL BLOOD SPECIMENOrdering Facility: [facility] Address: [address] [place], [place] [address] Performed By: #### A LLBG ####[facility] LABCLIA [id number] [address] [address] [place] O2 THERAPY NC = Nasal Cannula Normal [facility] Comment on above: Order Comment: Speci men Type: ARTERIAL BLOOD SPECIMENOrdering Facility: [facility] Address: [address] [place], [place] [address] Performed By: #### A LLBG ####[facility] LABCLIA [id number] [address] [address] [place] Oxygen (Bld) [Partial pressure] 93 mm Hg Normal 85-95 [facility] Comment on above: Order Comment: Speci men Type: ARTERIAL BLOOD SPECIMENOrdering Facility: [facility] Address: [address] [place] [address] Performed By: #### A LLBG ####[facility] LABCLIA [id number] [address] [address] [place] Oxyhemoglobin (BldA) [Mass fraction] 95 % Normal 95-98 [facility] Comment on above: Order Comment: Speci men Type: ARTERIAL BLOOD SPECIMENOrdering Facility: [facility] Address: [address] [place] [address] Performed By: #### A LLBG ####[facility] LABCLIA [id number] [place] [address] [place] pH (Bld) 7.35 [pH] Normal 7.35-7.45 [facility] Comment on above: Order Comment: Speci men Type: ARTERIAL BLOOD SPECIMENOrdering Facility: [facility] Address: [address] [place] [address] Performed By: #### A LLBG ####[facility] LABCLIA [id number] [place] [address] [place] Potassium [Moles/Vol] 4.4 mmol/L Normal 3.5-5.0 [facility] Comment on above: Order Comment: Speci men Type: ARTERIAL BLOOD SPECIMENOrdering Facility: [facility] Address: [address] [place] [address] Performed By: #### A LLBG ####[facility] LABIA [id number] [place] [address] [place] Sodium [Moles/Vol] 138 mmol/L Normal 136-144 [facility] Comment on above: Order Comment: Speci men Type: ARTERIAL BLOOD SPECIMENOrdering Facility: [facility] Address: [address] [place] [address] Performed By: #### A LLBG ####[facility] LABCLIA [id number] [place] [id number] [place] Base deficit (BldA) [Moles/Vol] mmol/L Normal -2-0 [facility] Comment on above: Order Comment: Speci men Type: ARTERIAL BLOOD SPECIMENOrdering Facility: [facility] Address: [address] [place] [address] Performed By: #### A LLBG ####[facility] LABCLIA [id number] [place] [address] [place] Body temperature 98.6 [degF] Normal [facility] Comment on above: Order Comment: Speci men Type: ARTERIAL BLOOD SPECIMENOrdering Facility: [facility] Address: [address] [place] [address] Performed By: #### A LLBG ####[facility] LABCLIA [id number] [place] [address] [place] Calcium.ionized (Bld) [Mass/Vol] 1.20 mmol/L Normal 1.08-1.30 [facility] Comment on above: Order Comment: Speci men Type: ARTERIAL BLOOD SPECIMENOrdering Facility: [facility] Address: [address] [place] [address] Performed By: #### A LLBG ####[facility] LABCLIA [id number] [place] [address] [place] Calcium.ionized adjusted to pH 7.4 (BldA) [Moles/Vol] 1.17 mmol/L Normal 1.08-1.30 [facility] Comment on above: Order Comment: Speci men Type: ARTERIAL BLOOD SPECIMENOrdering Facility: [facility] Address: [address] [place] [address] Performed By: #### A LLBG ####[facility] LABCLIA [id number] [place] [address] [place] Carboxyhemoglobin (BldA) [Mass fraction] 1.5 % Normal 0.0-2.0 [facility] Comment on above: Order Comment: Speci men Type: ARTERIAL BLOOD SPECIMENOrdering Facility: [facility] Address: [address] [place] [address] Result Comment: Carb oxyhemoglobin Reference Range for Smokers: 2.0-8.0% Performed By: #### A LLBG ####[facility] LABCLIA [id number] [place] [address] [place] CO2 (Bld) [Partial pressure] 48 mm Hg High 36-46 [facility] Comment on above: Order Comment: Speci men Type: ARTERIAL BLOOD SPECIMENOrdering Facility: [facility] Address: [address] [place] [address] Performed By: #### A LLBG ####[facility] LABCLIA [id number] [place] [id number] [place] Glucose [Mass/Vol] 240 mg/dL High 60-105 [facility] Comment on above: Order Comment: Speci men Type: ARTERIAL BLOOD SPECIMENOrdering Facility: [facility] Address: [address] [place] [address] Performed By: #### A LLBG ####[facility] LABCLIA [id number] [place] [address] [place] HCO3 (Bld) [Moles/Vol] 25 mmol/L Normal 22-26 [facility] Comment on above: Order Comment: Speci men Type: ARTERIAL BLOOD SPECIMENOrdering Facility: [facility] Address: [address] [place] [address] Performed By: #### A LLBG ####[facility] LABCLIA [id number] [place] [address] [place] Hematocrit (Bld) [Volume fraction] 38.3 % Low 39.0-51.0 [facility] Comment on above: Order Comment: Speci men Type: ARTERIAL BLOOD SPECIMENOrdering Facility: [facility] Address: [address] [place] [address] Performed By: #### A LLBG ####[facility] LABCLIA [id number] [place] [address] [place] Hemoglobin (Bld) [Mass/Vol] 12.5 g/dL Low 13.0-17.0 [facility] Comment on above: Order Comment: Speci men Type: ARTERIAL BLOOD SPECIMENOrdering Facility: [facility] Address: [address] [place] [address] Performed By: #### A LLBG ####[facility] LABCLIA [id number] [address] [address] [place] Lactate [Moles/Vol] 1.9 mmol/L Normal 0.5-2.2 [facility] Comment on above: Order Comment: Speci men Type: ARTERIAL BLOOD SPECIMENOrdering Facility: [facility] Address: [address] [place] [address] Performed By: #### A LLBG ####[facility] LABCLIA [id number] [place] [id number] [place] Methemoglobin (Bld) [Mass fraction] 0.7 % Normal 0.0-1.5 [facility] Comment on above: Order Comment: Speci men Type: ARTERIAL BLOOD SPECIMENOrdering Facility: [facility] Address: [address] [place] [address] Performed By: #### A LLBG ####[facility] LABIA [id number] [place] [address] [place] O2 THERAPY VENT=Ventilator Normal [facility] Comment on above: Order Comment: Speci men Type: ARTERIAL BLOOD SPECIMENOrdering Facility: [facility] Address: [address] [place] [address] Result Comment: CPAP Performed By: #### A LLBG ####[facility] LABCLIA [id number] [place] [id number] [place] Oxygen (Bld) [Partial pressure] 147 mm Hg High 85-95 [facility] Comment on above: Order Comment: Speci men Type: ARTERIAL BLOOD SPECIMENOrdering Facility: [facility] Address: [address] [place] [address] Performed By: #### A LLBG ####[facility] LABCLIA [id number] [address] [address] [place] Oxyhemoglobin (BldA) [Mass fraction] 97 % Normal 95-98 [facility] Comment on above: Order Comment: Speci men Type: ARTERIAL BLOOD SPECIMENOrdering Facility: [facility] Address: [address] [place] [address] Performed By: #### A LLBG ####[facility] LABCLIA [id number] [place] [id number] [place] PEEP/CPAP 5 cmH2O Normal [facility] Comment on above: Order Comment: Speci men Type: ARTERIAL BLOOD SPECIMENOrdering Facility: [facility] Address: [address] [place] [address] Performed By: #### A LLBG ####[facility] LABCLIA [id number] [place] [id number] [place] pH (Bld) 7.34 [pH] Low 7.35-7.45 [facility] Comment on above: Order Comment: Speci men Type: ARTERIAL BLOOD SPECIMENOrdering Facility: [facility] Address: [address] [place] [address] Performed By: #### A LLBG ####[facility] LABIA [id number] [place] [id number] [place] Potassium [Moles/Vol] 4.3 mmol/L Normal 3.5-5.0 [facility] Comment on above: Order Comment: Speci men Type: ARTERIAL BLOOD SPECIMENOrdering Facility: [facility] Address: [address] [place] [address] Performed By: #### A LLBG ####[facility] LABCLIA [id number] [place] [id number] [place] Sodium [Moles/Vol] 139 mmol/L Normal 136-144 [facility] Comment on above: Order Comment: Speci men Type: ARTERIAL BLOOD SPECIMENOrdering Facility: [facility] Address: [address] [place] [address] Performed By: #### A LLBG ####[facility] LABCLIA [id number] [place] [id number] [place] Base deficit (BldA) [Moles/Vol] -1 mmol/L Normal -2-0 [facility] Comment on above: Order Comment: Speci men Type: ARTERIAL BLOOD SPECIMENOrdering Facility: [facility] Address: [address] [place] [address] Performed By: #### A LLBG ####[facility] LABCLIA [id number] [place] [address] [place] Body temperature 98.06 [degF] Normal [facility] Comment on above: Order Comment: Speci men Type: ARTERIAL BLOOD SPECIMENOrdering Facility: [facility] Address: [address] [place] [address] Performed By: #### A LLBG ####[facility] LABCLIA [id number] [place] [address] [place] Calcium.ionized (Bld) [Mass/Vol] 1.19 mmol/L Normal 1.08-1.30 [facility] Comment on above: Order Comment: Speci men Type: ARTERIAL BLOOD SPECIMENOrdering Facility: [facility] Address: [address] [place] [address] Performed By: #### A LLBG ####[facility] LABIA [id number] [place] [address] [place] Calcium.ionized adjusted to pH 7.4 (BldA) [Moles/Vol] 1.18 mmol/L Normal 1.08-1.30 [facility] Comment on above: Order Comment: Speci men Type: ARTERIAL BLOOD SPECIMENOrdering Facility: [facility] Address: [address] [place] [address] Performed By: #### A LLBG ####[facility] LABCLIA [id number] [place] [id number] [place] Carboxyhemoglobin (BldA) [Mass fraction] 1.7 % Normal 0.0-2.0 [facility] Comment on above: Order Comment: Speci men Type: ARTERIAL BLOOD SPECIMENOrdering Facility: [facility] Address: [address] [place] [address] Result Comment: Carb oxyhemoglobin Reference Range for Smokers: 2.0-8.0% Performed By: #### A LLBG ####[facility]CLIA [id number] [address] [address] [place] CO2 (Bld) [Partial pressure] 41 mm Hg Normal 36-46 [facility] Comment on above: Order Comment: Speci men Type: ARTERIAL BLOOD SPECIMENOrdering Facility: [facility] Address: [address] [place] [address] Performed By: #### A LLBG ####[facility] LABCLIA [id number] [place] [id number] [place] CO2 adjusted to patient's actual temperature (Bld) [Partial pressure] 41 mmHg Normal 36-46 [facility] Comment on above: Order Comment: Speci men Type: ARTERIAL BLOOD SPECIMENOrdering Facility: [facility] Address: [address] [place] [address] Performed By: #### A LLBG ####[facility] LABCLIA [id number] [place] [id number] [place] FIO2 40 % Normal [facility] Comment on above: Order Comment: Speci men Type: ARTERIAL BLOOD SPECIMENOrdering Facility: [facility] Address: [address] [place] [address] Performed By: #### A LLBG ####[facility] LABCLIA [id number] [place] [id number] [place] Glucose [Mass/Vol] 218 mg/dL High 60-105 [facility] Comment on above: Order Comment: Speci men Type: ARTERIAL BLOOD SPECIMENOrdering Facility: [facility] Address: [address] [place] [address] Performed By: #### A LLBG ####[facility] LABCLIA [id number] [place] [address] [place] HCO3 (Bld) [Moles/Vol] 24 mmol/L Normal 22-26 [facility] Comment on above: Order Comment: Speci men Type: ARTERIAL BLOOD SPECIMENOrdering Facility: [facility] Address: [address] [place] [address] Performed By: #### A LLBG ####[facility] LABCLIA [id number] [place] [address] [place] Hematocrit (Bld) [Volume fraction] 38.0 % Low 39.0-51.0 [facility] Comment on above: Order Comment: Speci men Type: ARTERIAL BLOOD SPECIMENOrdering Facility: [facility] Address: [address] [place] [address] Performed By: #### A LLBG ####[facility] LABIA [id number] [place] [address] [place] Hemoglobin (Bld) [Mass/Vol] 12.4 g/dL Low 13.0-17.0 [facility] Comment on above: Order Comment: Speci men Type: ARTERIAL BLOOD SPECIMENOrdering Facility: [facility] Address: [address] [place] [address] Performed By: #### A LLBG ####[facility] LABIA [id number] [place] [address] [place] Lactate [Moles/Vol] 2.4 mmol/L High 0.5-2.2 [facility] Comment on above: Order Comment: Speci men Type: ARTERIAL BLOOD SPECIMENOrdering Facility: [facility] Address: [address] [place] [address] Performed By: #### A LLBG ####[facility] LABCLIA [id number] [place] [id number] [place] Methemoglobin (Bld) [Mass fraction] 0.7 % Normal 0.0-1.5 [facility] Comment on above: Order Comment: Speci men Type: ARTERIAL BLOOD SPECIMENOrdering Facility: [facility] Address: [address] [place] [address] Performed By: #### A LLBG ####[facility] LABCLIA [id number] [address] [place] [address] [place] O2 THERAPY VENT=Ventilator Normal [facility] Comment on above: Order Comment: Speci men Type: ARTERIAL BLOOD SPECIMENOrdering Facility: [facility] Address: [address] [place] [id number] Performed By: #### A LLBG ####[facility] LABCLIA [id number] [address] [place] [address] [place] Oxygen (Bld) [Partial pressure] 168 mm Hg High 85-95 [facility] Comment on above: Order Comment: Speci men Type: ARTERIAL BLOOD SPECIMENOrdering Facility: [facility] Address: [address] [place], [place] [address] Performed By: #### A LLBG ####[facility] LABCLIA [id number] [address] [place] [address] [place] Oxygen adjusted to patient's actual temperature (Bld) [Partial pressure] 166 mmHg High 85-95 [facility] Comment on above: Order Comment: Speci men Type: ARTERIAL BLOOD SPECIMENOrdering Facility: [facility] Address: [address] [place] [address] Performed By: #### A LLBG ####[facility] LABCLIA [id number] [facility] [address] [place] [address] [place] Oxyhemoglobin (BldA) [Mass fraction] 97 % Normal 95-98 [facility] Comment on above: Order Comment: Speci men Type: ARTERIAL BLOOD SPECIMENOrdering Facility: [facility] Address: [address] [place] [address] Performed By: #### A LLBG ####[facility] LABCLIA [id number] [address] [address] [place] pH (Bld) 7.38 [pH] Normal 7.35-7.45 [facility] Comment on above: Order Comment: Speci men Type: ARTERIAL BLOOD SPECIMENOrdering Facility: [facility] Address: [address] [place] [address] Performed By: #### A LLBG ####[facility] LABCLIA [id number] [place] [address] [place] pH adjusted to patient's actual temperature (Bld) 7.39 Normal 7.35-7.45 [facility] Comment on above: Order Comment: Speci men Type: ARTERIAL BLOOD SPECIMENOrdering Facility: [facility] Address: [address] [place] [address] Performed By: #### A LLBG ####[facility] LABCLIA [id number] [place] [address] [place] PO2 / FIO2 RATIO 420 mmHg Normal >300 [facility] Comment on above: Order Comment: Speci men Type: ARTERIAL BLOOD SPECIMENOrdering Facility: [facility] Address: [address] [place] [address] Performed By: #### A LLBG ####[facility] LABCLIA [id number] [place] [address] [place] Potassium [Moles/Vol] 4.1 mmol/L Normal 3.5-5.0 [facility] Comment on above: Order Comment: Speci men Type: ARTERIAL BLOOD SPECIMENOrdering Facility: [facility] Address: [address] [place] [address] Performed By: #### A LLBG ####[facility] LABCLIA [id number] [place] [address] [place] Sodium [Moles/Vol] 138 mmol/L Normal 136-144 [facility] Comment on above: Order Comment: Speci men Type: ARTERIAL BLOOD SPECIMENOrdering Facility: [facility] Address: [address] [place] [address] Performed By: #### A LLBG ####[facility] LABCLIA [id number] [place] [address] [place] Base excess Calc (Bld) [Moles/Vol] 0 mmol/L Normal 0-2 [facility] Comment on above: Order Comment: Speci men Type: ARTERIAL BLOOD SPECIMENOrdering Facility: [facility] Address: [address] [place] [address] Performed By: #### A LLBG ####[facility] LABIA [id number] [place] [address] [place] Body temperature 98.06 [degF] Normal [facility] Comment on above: Order Comment: Speci men Type: ARTERIAL BLOOD SPECIMENOrdering Facility: [facility] Address: [address] [place] [address] Performed By: #### A LLBG ####[facility] LABIA [id number] [place] [address] [place] Calcium.ionized (Bld) [Mass/Vol] 1.18 mmol/L Normal 1.08-1.30 [facility] Comment on above: Order Comment: Speci men Type: ARTERIAL BLOOD SPECIMENOrdering Facility: [facility] Address: [address] [place] [address] Performed By: #### A LLBG ####[facility] LABIA [id number] [place] [address] [place] Calcium.ionized adjusted to pH 7.4 (BldA) [Moles/Vol] 1.16 mmol/L Normal 1.08-1.30 [facility] Comment on above: Order Comment: Speci men Type: ARTERIAL BLOOD SPECIMENOrdering Facility: [facility] Address: [address] [place] [address] Performed By: #### A LLBG ####[facility] LABIA [id number] [place] [address] [place] Carboxyhemoglobin (BldA) [Mass fraction] 2.2 % High 0.0-2.0 [facility] Comment on above: Order Comment: Speci men Type: ARTERIAL BLOOD SPECIMENOrdering Facility: [facility] Address: [address] [place] [address] Result Comment: Carb oxyhemoglobin Reference Range for Smokers: 2.0-8.0% Performed By: #### A LLBG ####[facility] LABCLIA [id number] [address] [place] CO2 (Bld) [Partial pressure] 44 mm Hg Normal 36-46 [facility] Comment on above: Order Comment: Speci men Type: ARTERIAL BLOOD SPECIMENOrdering Facility: [facility] Address: [address] [place] [address] Performed By: #### A LLBG ####[facility] LABCLIA [id number] [address] [place] CO2 adjusted to patient's actual temperature (Bld) [Partial pressure] 44 mmHg Normal 36-46 [facility] Comment on above: Order Comment: Speci men Type: ARTERIAL BLOOD SPECIMENOrdering Facility: [facility] Address: [address] [place] [address] Performed By: #### A LLBG ####[facility] LABCLIA [id number] [place] [address] [place] Glucose [Mass/Vol] 168 mg/dL High 60-105 [facility] Comment on above: Order Comment: Speci men Type: ARTERIAL BLOOD SPECIMENOrdering Facility: [facility] Address: [address] [place] [address] Performed By: #### A LLBG ####[facility] LABCLIA [id number] [place] [address] [place] HCO3 (Bld) [Moles/Vol] 25 mmol/L Normal 22-26 [facility] Comment on above: Order Comment: Speci men Type: ARTERIAL BLOOD SPECIMENOrdering Facility: [facility] Address: [address] [place] [address] Performed By: #### A LLBG ####[facility] [id number] [place] [address] [place] Hematocrit (Bld) [Volume fraction] 36.2 % Low 39.0-51.0 [facility] Comment on above: Order Comment: Speci men Type: ARTERIAL BLOOD SPECIMENOrdering Facility: [facility] Address: [address] [place] [address] Performed By: #### A LLBG ####[facility] [id number] [place] [address] [place] Hemoglobin (Bld) [Mass/Vol] 11.8 g/dL Low 13.0-17.0 [facility] Comment on above: Order Comment: Speci men Type: ARTERIAL BLOOD SPECIMENOrdering Facility: [facility] Address: [address] [place] [address] Performed By: #### A LLBG ####[facility] [id number] [place] [address] [place] Lactate [Moles/Vol] 2.7 mmol/L High 0.5-2.2 [facility] Comment on above: Order Comment: Speci men Type: ARTERIAL BLOOD SPECIMENOrdering Facility: [facility] Address: [address] [place] [address] Performed By: #### A LLBG ####[facility] LABIA [id number] [place] [address] [place] Methemoglobin (Bld) [Mass fraction] 0.5 % Normal 0.0-1.5 [facility] Comment on above: Order Comment: Speci men Type: ARTERIAL BLOOD SPECIMENOrdering Facility: [facility] Address: [address] [place] [address] Performed By: #### A LLBG ####[facility] LABCLIA [id number] [address] [place] [address] [place] O2 THERAPY VENT=Ventilator Normal [facility] Comment on above: Order Comment: Speci men Type: ARTERIAL BLOOD SPECIMENOrdering Facility: [facility] Address: [address] [place], [place] [address] Performed By: #### A LLBG ####[facility] LABCLIA [id number] [address] [place] [address] [place] Oxygen (Bld) [Partial pressure] 108 mm Hg High 85-95 [facility] Comment on above: Order Comment: Speci men Type: ARTERIAL BLOOD SPECIMENOrdering Facility: [facility] Address: [address] [place] [address] Performed By: #### A LLBG ####[facility] LABCLIA [id number] [address] [place] [address] [place] Oxygen adjusted to patient's actual temperature (Bld) [Partial pressure] 106 mmHg High 85-95 [facility] Comment on above: Order Comment: Speci men Type: ARTERIAL BLOOD SPECIMENOrdering Facility: [facility] Address: [address] [place], [place] [address] Performed By: #### A LLBG ####[facility] LABCLIA [id number] [address] [place] [address] [place] Oxyhemoglobin (BldA) [Mass fraction] 96 % Normal 95-98 [facility] Comment on above: Order Comment: Speci men Type: ARTERIAL BLOOD SPECIMENOrdering Facility: [facility] Address: [address] [place], [place] [address] Performed By: #### A LLBG ####[facility] LABCLIA [id number] [address] [address] [place] pH (Bld) 7.37 [pH] Normal 7.35-7.45 [facility] Comment on above: Order Comment: Speci men Type: ARTERIAL BLOOD SPECIMENOrdering Facility: [facility] Address: [address] [place] [address] Performed By: #### A LLBG ####[facility] LABCLIA [id number] [place] [address] [place] pH adjusted to patient's actual temperature (Bld) 7.38 Normal 7.35-7.45 [facility] Comment on above: Order Comment: Speci men Type: ARTERIAL BLOOD SPECIMENOrdering Facility: [facility] Address: [address] [place] [address] Performed By: #### A LLBG ####[facility] LABCLIA [id number] [place] [address] [place] Potassium [Moles/Vol] 3.9 mmol/L Normal 3.5-5.0 [facility] Comment on above: Order Comment: Speci men Type: ARTERIAL BLOOD SPECIMENOrdering Facility: [facility] Address: [address] [place] [address] Performed By: #### A LLBG ####[facility] LABIA [id number] [place] [address] [place] Sodium [Moles/Vol] 138 mmol/L Normal 136-144 [facility] Comment on above: Order Comment: Speci men Type: ARTERIAL BLOOD SPECIMENOrdering Facility: [facility] Address: [address] [place] [address] Performed By: #### A LLBG ####[facility] LABCLIA [id number] [place] [address] [place] Base deficit (BldA) [Moles/Vol] -1 mmol/L Normal -2-0 [facility] Comment on above: Order Comment: Speci men Type: ARTERIAL BLOOD SPECIMENOrdering Facility: [facility] Address: [address] [place] [address] Performed By: #### A LLBG ####[facility] LABCLIA [id number] [place] [address] [place] Calcium.ionized (Bld) [Mass/Vol] 1.22 mmol/L Normal 1.08-1.30 [facility] Comment on above: Order Comment: Speci men Type: ARTERIAL BLOOD SPECIMENOrdering Facility: [facility] Address: [address] [place] [address] Performed By: #### A LLBG ####[facility] LABCLIA [id number] [place] [address] [place] Calcium.ionized adjusted to pH 7.4 (BldA) [Moles/Vol] 1.17 mmol/L Normal 1.08-1.30 [facility] Comment on above: Order Comment: Speci men Type: ARTERIAL BLOOD SPECIMENOrdering Facility: [facility] Address: [address] [place] [address] Performed By: #### A LLBG ####[facility] LABCLIA [id number] [place] [address] [place] Carboxyhemoglobin (BldA) [Mass fraction] 1.7 % Normal 0.0-2.0 [facility] Comment on above: Order Comment: Speci men Type: ARTERIAL BLOOD SPECIMENOrdering Facility: [facility] Address: [address] [place] [address] Result Comment: Carb oxyhemoglobin Reference Range for Smokers: 2.0-8.0% Performed By: #### A LLBG ####[facility] LABCLIA [id number] [place] [address] [place] CO2 (Bld) [Partial pressure] 50 mm Hg High 36-46 [facility] Comment on above: Order Comment: Speci men Type: ARTERIAL BLOOD SPECIMENOrdering Facility: [facility] Address: [address] [place] [address] Performed By: #### A LLBG ####[facility] LABCLIA [id number] [place] [address] [place] CO2 adjusted to patient's actual temperature (Bld) [Partial pressure] 50 mmHg High 36-46 [facility] Comment on above: Order Comment: Speci men Type: ARTERIAL BLOOD SPECIMENOrdering Facility: [facility] Address: [address] [place] [address] Performed By: #### A LLBG ####[facility] LABCLIA [id number] [facility] [place] [id number] [place] Glucose [Mass/Vol] 179 mg/dL High 60-105 [facility] Comment on above: Order Comment: Speci men Type: ARTERIAL BLOOD SPECIMENOrdering Facility: [facility] Address: [address] [place] [address] Performed By: #### A LLBG ####[facility] LABCLIA [id number] [place] [address] [place] HCO3 (Bld) [Moles/Vol] 25 mmol/L Normal 22-26 [facility] Comment on above: Order Comment: Speci men Type: ARTERIAL BLOOD SPECIMENOrdering Facility: [facility] Address: [address] [place] [address] Performed By: #### A LLBG ####[facility] LABCLIA [id number] [place] [address] [place] Hematocrit (Bld) [Volume fraction] 35.6 % Low 39.0-51.0 [facility] Comment on above: Order Comment: Speci men Type: ARTERIAL BLOOD SPECIMENOrdering Facility: [facility] Address: [address] [place] [address] Performed By: #### A LLBG ####[facility] LABCLIA [id number] [place] [address] [place] Hemoglobin (Bld) [Mass/Vol] 11.6 g/dL Low 13.0-17.0 [facility] Comment on above: Order Comment: Speci men Type: ARTERIAL BLOOD SPECIMENOrdering Facility: [facility] Address: [address] [place], [place] [address] Performed By: #### A LLBG ####[facility] LABCLIA [id number] [address] [address] [place] Lactate [Moles/Vol] 3.0 mmol/L High 0.5-2.2 [facility] Comment on above: Order Comment: Speci men Type: ARTERIAL BLOOD SPECIMENOrdering Facility: [facility] Address: [address] [place] [address] Performed By: #### A LLBG ####[facility] LABCLIA [id number] [address] [address] [place] Methemoglobin (Bld) [Mass fraction] 0.7 % Normal 0.0-1.5 [facility] Comment on above: Order Comment: Speci men Type: ARTERIAL BLOOD SPECIMENOrdering Facility: [facility] Address: [address] [place] [address] Performed By: #### A LLBG ####[facility] LABCLIA [id number] [address] [address] [place] Oxygen (Bld) [Partial pressure] 278 mm Hg High 85-95 [facility] Comment on above: Order Comment: Speci men Type: ARTERIAL BLOOD SPECIMENOrdering Facility: [facility] Address: [address] [place] [address] Performed By: #### A LLBG ####[facility] LABCLIA [id number] [address] [address] [place] Oxygen adjusted to patient's actual temperature (Bld) [Partial pressure] 278 mmHg High 85-95 [facility] Comment on above: Order Comment: Speci men Type: ARTERIAL BLOOD SPECIMENOrdering Facility: [facility] Address: [address] [place], [place] [address] Performed By: #### A LLBG ####[facility] LABCLIA [id number] [address] [address] [place] Oxyhemoglobin (BldA) [Mass fraction] 97 % Normal 95-98 [facility] Comment on above: Order Comment: Speci men Type: ARTERIAL BLOOD SPECIMENOrdering Facility: [facility] Address: [address] [place] [address] Performed By: #### A LLBG ####[facility] LABCLIA [id number] [place] [address] [place] pH (Bld) 7.32 [pH] Low 7.35-7.45 [facility] Comment on above: Order Comment: Speci men Type: ARTERIAL BLOOD SPECIMENOrdering Facility: [facility] Address: [address] [place] [address] Performed By: #### A LLBG ####[facility] LABCLIA [id number] [place] [address] [place] pH adjusted to patient's actual temperature (Bld) 7.32 Low 7.35-7.45 [facility] Comment on above: Order Comment: Speci men Type: ARTERIAL BLOOD SPECIMENOrdering Facility: [facility] Address: [address] [place] [address] Performed By: #### A LLBG ####[facility] LABCLIA [id number] [place] [address] [place] Potassium [Moles/Vol] 3.8 mmol/L Normal 3.5-5.0 [facility] Comment on above: Order Comment: Speci men Type: ARTERIAL BLOOD SPECIMENOrdering Facility: [facility] Address: [address] [place] [address] Performed By: #### A LLBG ####[facility] LABIA [id number] [place] [address] [place] Sodium [Moles/Vol] 140 mmol/L Normal 136-144 [facility] Comment on above: Order Comment: Speci men Type: ARTERIAL BLOOD SPECIMENOrdering Facility: [facility] Address: [address] [place] [address] Performed By: #### A LLBG ####[facility] [id number] [place] [address] [place] Base deficit (BldA) [Moles/Vol] -1 mmol/L Normal -2-0 [facility] Comment on above: Order Comment: Speci men Type: ARTERIAL BLOOD SPECIMENOrdering Facility: [facility] Address: [address] [place] [address] Performed By: #### A LLBG ####[facility] [id number] [place] [address] [place] Calcium.ionized (Bld) [Mass/Vol] 1.09 mmol/L Normal 1.08-1.30 [facility] Comment on above: Order Comment: Speci men Type: ARTERIAL BLOOD SPECIMENOrdering Facility: [facility] Address: [address] [place] [address] Performed By: #### A LLBG ####[facility] [id number] [place] [address] [place] Calcium.ionized adjusted to pH 7.4 (BldA) [Moles/Vol] 1.07 mmol/L Low 1.08-1.30 [facility] Comment on above: Order Comment: Speci men Type: ARTERIAL BLOOD SPECIMENOrdering Facility: [facility] Address: [address] [place] [address] Performed By: #### A LLBG ####[facility] [id number] [place] [address] [place] Carboxyhemoglobin (BldA) [Mass fraction] 2.5 % High 0.0-2.0 [facility] Comment on above: Order Comment: Speci men Type: ARTERIAL BLOOD SPECIMENOrdering Facility: [facility] Address: [address] [place] [address] Result Comment: Carb oxyhemoglobin Reference Range for Smokers: 2.0-8.0% Performed By: #### A LLBG ####[facility] LABCLIA [id number] [address] [address] [place] CO2 (Bld) [Partial pressure] 42 mm Hg Normal 36-46 [facility] Comment on above: Order Comment: Speci men Type: ARTERIAL BLOOD SPECIMENOrdering Facility: [facility] Address: [address] [place] [address] Performed By: #### A LLBG ####[facility] LABCLIA [id number] [place] [address] [place] CO2 adjusted to patient's actual temperature (Bld) [Partial pressure] 42 mmHg Normal 36-46 [facility] Comment on above: Order Comment: Speci men Type: ARTERIAL BLOOD SPECIMENOrdering Facility: [facility] Address: [address] [place] [address] Performed By: #### A LLBG ####[facility] LABCLIA [id number] [place] [address] [place] Glucose [Mass/Vol] 350 mg/dL High 60-105 [facility] Comment on above: Order Comment: Speci men Type: ARTERIAL BLOOD SPECIMENOrdering Facility: [facility] Address: [address] [place] [address] Performed By: #### A LLBG ####[facility] LABCLIA [id number] [place] [id number] [place] HCO3 (Bld) [Moles/Vol] 24 mmol/L Normal 22-26 [facility] Comment on above: Order Comment: Speci men Type: ARTERIAL BLOOD SPECIMENOrdering Facility: [facility] Address: [address] [place] [address] Performed By: #### A LLBG ####[facility] LABCLIA [id number] [address] [address] [place] Hematocrit (Bld) [Volume fraction] 32.6 % Low 39.0-51.0 [facility] Comment on above: Order Comment: Speci men Type: ARTERIAL BLOOD SPECIMENOrdering Facility: [facility] Address: [address] [place] [address] Performed By: #### A LLBG ####[facility] LABIA [id number] [address] [address] [place] Hemoglobin (Bld) [Mass/Vol] 10.6 g/dL Low 13.0-17.0 [facility] Comment on above: Order Comment: Speci men Type: ARTERIAL BLOOD SPECIMENOrdering Facility: [facility] Address: [address] [place] [address] Performed By: #### A LLBG ####[facility] LABIA [id number] [place] [address] [place] Lactate [Moles/Vol] 3.0 mmol/L High 0.5-2.2 [facility] Comment on above: Order Comment: Speci men Type: ARTERIAL BLOOD SPECIMENOrdering Facility: [facility] Address: [address] [place] [address] Performed By: #### A LLBG ####[facility] LABIA [id number] [place] [address] [place] Methemoglobin (Bld) [Mass fraction] 0.6 % Normal 0.0-1.5 [facility] Comment on above: Order Comment: Speci men Type: ARTERIAL BLOOD SPECIMENOrdering Facility: [facility] Address: [address] [place] [address] Performed By: #### A LLBG ####[facility] LABIA [id number] [place] [id number] [place] Oxygen (Bld) [Partial pressure] 236 mm Hg High 85-95 [facility] Comment on above: Order Comment: Speci men Type: ARTERIAL BLOOD SPECIMENOrdering Facility: [facility] Address: [address] [place] [address] Performed By: #### A LLBG ####[facility] LABCLIA [id number] [address] [address] [place] Oxygen adjusted to patient's actual temperature (Bld) [Partial pressure] 236 mmHg High 85-95 [facility] Comment on above: Order Comment: Speci men Type: ARTERIAL BLOOD SPECIMENOrdering Facility: [facility] Address: [address] [place] [address] Performed By: #### A LLBG ####[facility] LABCLIA [id number] [place] [address] [place] Oxyhemoglobin (BldA) [Mass fraction] 97 % Normal 95-98 [facility] Comment on above: Order Comment: Speci men Type: ARTERIAL BLOOD SPECIMENOrdering Facility: [facility] Address: [address] [place] [address] Performed By: #### A LLBG ####[facility] LABIA [id number] [place] [id number] [place] pH (Bld) 7.36 [pH] Normal 7.35-7.45 [facility] Comment on above: Order Comment: Speci men Type: ARTERIAL BLOOD SPECIMENOrdering Facility: [facility] Address: [address] [place] [address] Performed By: #### A LLBG ####[facility] LABCLIA [id number] [place] [address] [place] pH adjusted to patient's actual temperature (Bld) 7.36 Normal 7.35-7.45 [facility] Comment on above: Order Comment: Speci men Type: ARTERIAL BLOOD SPECIMENOrdering Facility: [facility] Address: [address] [place] [address] Performed By: #### A LLBG ####[facility] LABCLIA [id number] [address] [address] [place] Potassium [Moles/Vol] 6.2 mmol/L Critically high 3.5-5.0 [facility] Comment on above: Order Comment: Speci men Type: ARTERIAL BLOOD SPECIMENOrdering Facility: [facility] Address: [address] [place] [address] Performed By: #### A LLBG ####[facility] LABIA [id number] [place] [address] [place] Sodium [Moles/Vol] 133 mmol/L Low 136-144 [facility] Comment on above: Order Comment: Speci men Type: ARTERIAL BLOOD SPECIMENOrdering Facility: [facility] Address: [address] [place] [address] Performed By: #### A LLBG ####[facility] [id number] [place] [address] [place] Base deficit (BldA) [Moles/Vol] -3 mmol/L Low -2-0 [facility] Comment on above: Order Comment: Speci men Type: ARTERIAL BLOOD SPECIMENOrdering Facility: [facility] Address: [address] [place] [place] [address] Performed By: #### A LLBG ####[facility] [id number] [place] [address] [place] Calcium.ionized (Bld) [Mass/Vol] 1.13 mmol/L Normal 1.08-1.30 [facility] Comment on above: Order Comment: Speci men Type: ARTERIAL BLOOD SPECIMENOrdering Facility: [facility] Address: [address] [place] [address] Performed By: #### A LLBG ####[facility] [id number] [place] [address] [place] Calcium.ionized adjusted to pH 7.4 (BldA) [Moles/Vol] 1.12 mmol/L Normal 1.08-1.30 [facility] Comment on above: Order Comment: Speci men Type: ARTERIAL BLOOD SPECIMENOrdering Facility: [facility] Address: [address] [place] [address] Performed By: #### A LLBG ####[facility] LABCLIA [id number] [place] [address] [place] Carboxyhemoglobin (BldA) [Mass fraction] 2.6 % High 0.0-2.0 [facility] Comment on above: Order Comment: Speci men Type: ARTERIAL BLOOD SPECIMENOrdering Facility: [facility] Address: [address] [place] [address] Result Comment: Carb oxyhemoglobin Reference Range for Smokers: 2.0-8.0% Performed By: #### A LLBG ####[facility] LABCLIA [id number] [place] [address] [place] CO2 (Bld) [Partial pressure] 36 mm Hg Normal 36-46 [facility] Comment on above: Order Comment: Speci men Type: ARTERIAL BLOOD SPECIMENOrdering Facility: [facility] Address: [address] [place] [address] Performed By: #### A LLBG ####[facility] LABCLIA [id number] [place] [address] [place] CO2 adjusted to patient's actual temperature (Bld) [Partial pressure] 36 mmHg Normal 36-46 [facility] Comment on above: Order Comment: Speci men Type: ARTERIAL BLOOD SPECIMENOrdering Facility: [facility] Address: [address] [place] [address] Performed By: #### A LLBG ####[facility] LABCLIA [id number] [place] [id number] [place] Glucose [Mass/Vol] 367 mg/dL High 60-105 [facility] Comment on above: Order Comment: Speci men Type: ARTERIAL BLOOD SPECIMENOrdering Facility: [facility] Address: [address] [place] [address] Performed By: #### A LLBG ####[facility] LABCLIA [id number] [place] [id number] [place] HCO3 (Bld) [Moles/Vol] 21 mmol/L Low 22-26 [facility] Comment on above: Order Comment: Speci men Type: ARTERIAL BLOOD SPECIMENOrdering Facility: [facility] Address: [address] [place] [address] Performed By: #### A LLBG ####[facility] LABCL[facility] [id number] [place] [address] [place] Hematocrit (Bld) [Volume fraction] 35.4 % Low 39.0-51.0 [facility] Comment on above: Order Comment: Speci men Type: ARTERIAL BLOOD SPECIMENOrdering Facility: [facility] Address: [address] [place] [address] Performed By: #### A LLBG ####[facility] LABCL[facility] [id number] [place] [address] [place] Hemoglobin (Bld) [Mass/Vol] 11.5 g/dL Low 13.0-17.0 [facility] Comment on above: Order Comment: Speci men Type: ARTERIAL BLOOD SPECIMENOrdering Facility: [facility] Address: [address] [place] [address] Performed By: #### A LLBG ####[facility] LABCLIA [id number] [place] [address] [place] Lactate [Moles/Vol] 1.7 mmol/L Normal 0.5-2.2 [facility] Comment on above: Order Comment: Speci men Type: ARTERIAL BLOOD SPECIMENOrdering Facility: [facility] Address: [address] [place] [address] Performed By: #### A LLBG ####[facility] LABCLIA [id number] [place] [id number] [place] Methemoglobin (Bld) [Mass fraction] 0.3 % Normal 0.0-1.5 [facility] Comment on above: Order Comment: Speci men Type: ARTERIAL BLOOD SPECIMENOrdering Facility: [facility] Address: [address] [place] [address] Performed By: #### A LLBG ####[facility] LABCL[facility] [id number] [address] [address] [place] Oxygen (Bld) [Partial pressure] 346 mm Hg High 85-95 [facility] Comment on above: Order Comment: Speci men Type: ARTERIAL BLOOD SPECIMENOrdering Facility: [facility] Address: [address] [place] [address] Performed By: #### A LLBG ####[facility] LABCLIA [id number] [place] [address] [place] Oxygen adjusted to patient's actual temperature (Bld) [Partial pressure] 346 mmHg High 85-95 [facility] Comment on above: Order Comment: Speci men Type: ARTERIAL BLOOD SPECIMENOrdering Facility: [facility] Address: [address] [place] [address] Performed By: #### A LLBG ####[facility] LABCL[facility] [id number] [place] [address] [place] Oxyhemoglobin (BldA) [Mass fraction] 98 % Normal 95-98 [facility] Comment on above: Order Comment: Speci men Type: ARTERIAL BLOOD SPECIMENOrdering Facility: [facility] Address: [address] [place] [address] Performed By: #### A LLBG ####[facility] LABCLIA [id number] [place] [id number] [place] pH (Bld) 7.39 [pH] Normal 7.35-7.45 [facility] Comment on above: Order Comment: Speci men Type: ARTERIAL BLOOD SPECIMENOrdering Facility: [facility] Address: [address] [place], [place] [address] Performed By: #### A LLBG ####[facility] LABCLIA [id number] [address] [address] [place] pH adjusted to patient's actual temperature (Bld) 7.39 Normal 7.35-7.45 [facility] Comment on above: Order Comment: Speci men Type: ARTERIAL BLOOD SPECIMENOrdering Facility: [facility] Address: [address] [place] [address] Performed By: #### A LLBG ####[facility] LABCLIA [id number] [place] [id number] [place] Potassium [Moles/Vol] 5.7 mmol/L High 3.5-5.0 [facility] Comment on above: Order Comment: Speci men Type: ARTERIAL BLOOD SPECIMENOrdering Facility: [facility] Address: [address] [place] [address] Performed By: #### A LLBG ####[facility] LABCLIA [id number] [place] [address] [place] Order Comment: Speci men Type: VENOUS BLOOD SPECIMENOrdering Facility: [facility] Address: [address] [place] [address] Performed By: #### 2 4344-4 ####[facility] LABCL[facility] [id number] [place] [id number] [place] Sodium [Moles/Vol] 136 mmol/L Normal 136-144 [facility] Comment on above: Order Comment: Speci men Type: ARTERIAL BLOOD SPECIMENOrdering Facility: [facility] Address: [address] [place], [place] [address] Performed By: #### A LLBG ####[facility] LABCLIA [id number] [place] [id number] [place] Base excess Calc (Bld) [Moles/Vol] 1 mmol/L Normal 0-2 [facility] Comment on above: Order Comment: Speci men Type: ARTERIAL BLOOD SPECIMENOrdering Facility: [facility] Address: [address] [place], [place] [address] Performed By: #### A LLBG ####[facility] LABIA [id number] [place] [address] [place] Calcium.ionized (Bld) [Mass/Vol] 1.19 mmol/L Normal 1.08-1.30 [facility] Comment on above: Order Comment: Speci men Type: ARTERIAL BLOOD SPECIMENOrdering Facility: [facility] Address: [address] [place] [address] Performed By: #### A LLBG ####[facility] [id number] [place] [address] [place] Calcium.ionized adjusted to pH 7.4 (BldA) [Moles/Vol] 1.18 mmol/L Normal 1.08-1.30 [facility] Comment on above: Order Comment: Speci men Type: ARTERIAL BLOOD SPECIMENOrdering Facility: [facility] Address: [address] [place] [address] Performed By: #### A LLBG ####[facility] [id number] [place] [address] [place] Carboxyhemoglobin (BldA) [Mass fraction] 2.6 % High 0.0-2.0 [facility] Comment on above: Order Comment: Speci men Type: ARTERIAL BLOOD SPECIMENOrdering Facility: [facility] Address: [address] [place] [address] Result Comment: Carb oxyhemoglobin Reference Range for Smokers: 2.0-8.0% Performed By: #### A LLBG ####[facility] [id number] [place] [address] [place] CO2 (Bld) [Partial pressure] 43 mm Hg Normal 36-46 [facility] Comment on above: Order Comment: Speci men Type: ARTERIAL BLOOD SPECIMENOrdering Facility: [facility] Address: [address] [place] [address] Performed By: #### A LLBG ####[facility]CL[facility] [id number] [facility] [address] [place] [address] [place] CO2 adjusted to patient's actual temperature (Bld) [Partial pressure] 43 mmHg Normal 36-46 [facility] Comment on above: Order Comment: Speci men Type: ARTERIAL BLOOD SPECIMENOrdering Facility: [facility] Address: [address] [place] [address] Performed By: #### A LLBG ####[facility] LABCLIA [id number] [place] [id number] [place] Glucose [Mass/Vol] 236 mg/dL High 60-105 [facility] Comment on above: Order Comment: Speci men Type: ARTERIAL BLOOD SPECIMENOrdering Facility: [facility] Address: [address] [place] [address] Performed By: #### A LLBG ####[facility] LABCLIA [id number] [place] [id number] [place] HCO3 (Bld) [Moles/Vol] 26 mmol/L Normal 22-26 [facility] Comment on above: Order Comment: Speci men Type: ARTERIAL BLOOD SPECIMENOrdering Facility: [facility] Address: [address] [place] [address] Performed By: #### A LLBG ####[facility] LABCLIA [id number] [place] [id number] [place] Hematocrit (Bld) [Volume fraction] 41.8 % Normal 39.0-51.0 [facility] Comment on above: Order Comment: Speci men Type: ARTERIAL BLOOD SPECIMENOrdering Facility: [facility] Address: [address] [place] [address] Performed By: #### A LLBG ####[facility] LABCLIA [id number] [facility] [address], [facility] [place] Hemoglobin (Bld) [Mass/Vol] 13.6 g/dL Normal 13.0-17.0 [facility] Comment on above: Order Comment: Speci men Type: ARTERIAL BLOOD SPECIMENOrdering Facility: [facility] Address: [address] [place] [id number] Performed By: #### A LLBG ####[facility] LABCLIA [id number] [address] [address] [place] Lactate [Moles/Vol] 1.2 mmol/L Normal 0.5-2.2 [facility] Comment on above: Order Comment: Speci men Type: ARTERIAL BLOOD SPECIMENOrdering Facility: [facility] Address: [address] [place], [place] [address] Performed By: #### A LLBG ####[facility] LABCLIA [id number] [place] [id number] [place] Methemoglobin (Bld) [Mass fraction] 0.8 % Normal 0.0-1.5 [facility] Comment on above: Order Comment: Speci men Type: ARTERIAL BLOOD SPECIMENOrdering Facility: [facility] Address: [address] [place], [place] [address] Performed By: #### A LLBG ####[facility] LABCLIA [id number] [address] [address] [place] Oxygen (Bld) [Partial pressure] 112 mm Hg High 85-95 [facility] Comment on above: Order Comment: Speci men Type: ARTERIAL BLOOD SPECIMENOrdering Facility: [facility] Address: [address] [place], [place] [address] Performed By: #### A LLBG ####[facility] LABCLIA [id number] [address] [address] [place] Oxygen adjusted to patient's actual temperature (Bld) [Partial pressure] 112 mmHg High 85-95 [facility] Comment on above: Order Comment: Speci men Type: ARTERIAL BLOOD SPECIMENOrdering Facility: [facility] Address: [address] [place], [place] [address] Performed By: #### A LLBG ####[facility] LABCLIA [id number] [place] [id number] [place] Oxyhemoglobin (BldA) [Mass fraction] 95 % Normal 95-98 [facility] Comment on above: Order Comment: Speci men Type: ARTERIAL BLOOD SPECIMENOrdering Facility: [facility] Address: [address] [place] [address] Performed By: #### A LLBG ####[facility] LABCLIA [id number] [place] [address] [place] pH (Bld) 7.39 [pH] Normal 7.35-7.45 [facility] Comment on above: Order Comment: Speci men Type: ARTERIAL BLOOD SPECIMENOrdering Facility: [facility] Address: [address] [place] [address] Performed By: #### A LLBG ####[facility] LABCLIA [id number] [place] [address] [place] pH adjusted to patient's actual temperature (Bld) 7.39 Normal 7.35-7.45 [facility] Comment on above: Order Comment: Speci men Type: ARTERIAL BLOOD SPECIMENOrdering Facility: [facility] Address: [address] [place] [address] Performed By: #### A LLBG ####[facility] LABCLIA [id number] [place] [address] [place] Potassium [Moles/Vol] 3.8 mmol/L Normal 3.5-5.0 [facility] Comment on above: Order Comment: Speci men Type: ARTERIAL BLOOD SPECIMENOrdering Facility: [facility] Address: [address] [place] [address] Performed By: #### A LLBG ####[facility] LABCLIA [id number] [place] [id number] [place] Sodium [Moles/Vol] 139 mmol/L Normal 136-144 [facility] Comment on above: Order Comment: Speci men Type: ARTERIAL BLOOD SPECIMENOrdering Facility: [facility] Address: [address] [place] [address] Performed By: #### A LLBG ####[facility] LABCLIA [id number] [place] [id number] [place] ARTERIAL BLOOD GASES WITH IO NIZED MAGNESIUMon 12-25-2024 Base deficit (BldA) [Moles/Vol] -4 mmol/L Low -2-0 [facility] Comment on above: Order Comment: Speci men Type: ARTERIAL BLOOD SPECIMENOrdering Facility: [facility] Address: [address] [place] [address] Performed By: #### A LLMG ####[facility] LABIA [id number] [place] [address] [place] Calcium.ionized (Bld) [Mass/Vol] 1.24 mmol/L Normal 1.08-1.30 [facility] Comment on above: Order Comment: Speci men Type: ARTERIAL BLOOD SPECIMENOrdering Facility: [facility] Address: [address] [place] [address] Performed By: #### A LLMG ####[facility] LABIA [id number] [place] [address] [place] Calcium.ionized adjusted to pH 7.4 (BldA) [Moles/Vol] 1.16 mmol/L Normal 1.08-1.30 [facility] Comment on above: Order Comment: Speci men Type: ARTERIAL BLOOD SPECIMENOrdering Facility: [facility] Address: [address] [place] [address] Performed By: #### A LLMG ####[facility] LABIA [id number] [place] [id number] [place] Carboxyhemoglobin (BldA) [Mass fraction] 1.8 % Normal 0.0-2.0 [facility] Comment on above: Order Comment: Speci men Type: ARTERIAL BLOOD SPECIMENOrdering Facility: [facility] Address: [address] [place] [address] Result Comment: Carb oxyhemoglobin Reference Range for Smokers: 2.0-8.0% Performed By: #### A LLMG ####[facility] LABCLIA [id number] [place] [address] [place] CO2 (Bld) [Partial pressure] 51 mm Hg High 36-46 [facility] Comment on above: Order Comment: Speci men Type: ARTERIAL BLOOD SPECIMENOrdering Facility: [facility] Address: [address] [place] [address] Performed By: #### A LLMG ####[facility] LABCLIA [id number] [place] [address] [place] CO2 adjusted to patient's actual temperature (Bld) [Partial pressure] 51 mmHg High 36-46 [facility] Comment on above: Order Comment: Speci men Type: ARTERIAL BLOOD SPECIMENOrdering Facility: [facility] Address: [address] [place] [address] Performed By: #### A LLMG ####[facility] LABCLIA [id number] [place] [address] [place] Glucose [Mass/Vol] 337 mg/dL High 60-105 [facility] Comment on above: Order Comment: Speci men Type: ARTERIAL BLOOD SPECIMENOrdering Facility: [facility] Address: [address] [place] [address] Performed By: #### A LLMG ####[facility] LABCLIA [id number] [place] [id number] [place] HCO3 (Bld) [Moles/Vol] 23 mmol/L Normal 22-26 [facility] Comment on above: Order Comment: Speci men Type: ARTERIAL BLOOD SPECIMENOrdering Facility: [facility] Address: [address] [place] [address] Performed By: #### A LLMG ####[facility] LABCLIA [id number] [place] [address] [place] Hematocrit (Bld) [Volume fraction] 34.5 % Low 39.0-51.0 [facility] Comment on above: Order Comment: Speci men Type: ARTERIAL BLOOD SPECIMENOrdering Facility: [facility] Address: [address] [place] [address] Performed By: #### A LLMG ####[facility] LABIA [id number] [place] [address] [place] Hemoglobin (Bld) [Mass/Vol] 11.2 g/dL Low 13.0-17.0 [facility] Comment on above: Order Comment: Speci men Type: ARTERIAL BLOOD SPECIMENOrdering Facility: [facility] Address: [address] [place] [address] Performed By: #### A LLMG ####[facility] LABIA [id number] [place] [address] [place] Lactate [Moles/Vol] 3.8 mmol/L High 0.5-2.2 [facility] Comment on above: Order Comment: Speci men Type: ARTERIAL BLOOD SPECIMENOrdering Facility: [facility] Address: [address] [place] [address] Performed By: #### A LLMG ####[facility] LABIA [id number] [place] [address] [place] Magnesium [Moles/Vol] 0.63 mmol/L High 0.45-0.60 [facility] Comment on above: Order Comment: Speci men Type: ARTERIAL BLOOD SPECIMENOrdering Facility: [facility] Address: [address] [place] [address] Performed By: #### A LLMG ####[facility] LABCLIA [id number] [place] [id number] [place] Methemoglobin (Bld) [Mass fraction] 0.8 % Normal 0.0-1.5 [facility] Comment on above: Order Comment: Speci men Type: ARTERIAL BLOOD SPECIMENOrdering Facility: [facility] Address: [address] [place] [address] Performed By: #### A LLMG ####[facility] LABCLIA [id number] [address] [place] [address] [place] Oxygen (Bld) [Partial pressure] 253 mm Hg High 85-95 [facility] Comment on above: Order Comment: Speci men Type: ARTERIAL BLOOD SPECIMENOrdering Facility: [facility] Address: [address] [place], [place] [address] Performed By: #### A LLMG ####[facility] LABCLIA [id number] [address] [address] [place] Oxygen adjusted to patient's actual temperature (Bld) [Partial pressure] 253 mmHg High 85-95 [facility] Comment on above: Order Comment: Speci men Type: ARTERIAL BLOOD SPECIMENOrdering Facility: [facility] Address: [address] [place] [address] Performed By: #### A LLMG ####[facility] LABCLIA [id number] [place] [id number] [place] Oxyhemoglobin (BldA) [Mass fraction] 97 % Normal 95-98 [facility] Comment on above: Order Comment: Speci men Type: ARTERIAL BLOOD SPECIMENOrdering Facility: [facility] Address: [address] [place], [place] [address] Performed By: #### A LLMG ####[facility] LABCLIA [id number] [address] [address] [place] pH (Bld) 7.27 [pH] Low 7.35-7.45 [facility] Comment on above: Order Comment: Speci men Type: ARTERIAL BLOOD SPECIMENOrdering Facility: [facility] Address: [address] [place], [place] [address] Performed By: #### A LLMG ####[facility] LABCLIA [id number] [place] [address] [place] pH adjusted to patient's actual temperature (Bld) 7.27 Low 7.35-7.45 [facility] Comment on above: Order Comment: Speci men Type: ARTERIAL BLOOD SPECIMENOrdering Facility: [facility] Address: [address] [place] [address] Performed By: #### A LLMG ####[facility] LABIA [id number] [place] [address] [place] Potassium [Moles/Vol] 5.2 mmol/L High 3.5-5.0 [facility] Comment on above: Order Comment: Speci men Type: ARTERIAL BLOOD SPECIMENOrdering Facility: [facility] Address: [address] [place] [address] Performed By: #### A LLMG ####[facility] [id number] [place] [address] [place] Sodium [Moles/Vol] 132 mmol/L Low 136-144 [facility] Comment on above: Order Comment: Speci men Type: ARTERIAL BLOOD SPECIMENOrdering Facility: [facility] Address: [address] [place] [address] Performed By: #### A LLMG ####[facility] LABIA [id number] [place] [address] [place] ECG COMPLETEon 12-25-2024 ECG COMPLETE Normal [facility] Fibrinogen PPP-mCncon 2024 Fibrinogen Coag (PPP) [Mass/Vol] 178 mg/dL Low 200-400 [facility] Comment on above: Order Comment: Speci men Type: BLOOD SPECIMENOrdering Facility: [facility] Address: [address] [place] [address] Performed By: #### 3 255-7 ####[facility] [id number] [place] [address] [place] Gas and Carbon monoxide pane l (BldV)on 12-25-2024 BASE DEFICIT, VENOUS -2 mmol/L Normal -2-0 [facility] Comment on above: Order Comment: Speci men Type: VENOUS BLOOD SPECIMENOrdering Facility: [facility] Address: [address] [place] [address] Performed By: #### 2 4344-4 ####[facility] LABCLIA [id number] [place] [address] [place] Calcium.ionized (Bld) [Mass/Vol] 1.15 mmol/L Normal 1.08-1.30 [facility] Comment on above: Order Comment: Speci men Type: VENOUS BLOOD SPECIMENOrdering Facility: [facility] Address: [address] [place] [address] Performed By: #### 2 4344-4 ####[facility] LABCLIA [id number] [place] [address] [place] Calcium.ionized adjusted to pH 7.4 (BldA) [Moles/Vol] 1.10 mmol/L Normal 1.08-1.30 [facility] Comment on above: Order Comment: Speci men Type: VENOUS BLOOD SPECIMENOrdering Facility: [facility] Address: [address] [place] [address] Performed By: #### 2 4344-4 ####[facility] LABIA [id number] [place] [address] [place] Carboxyhemoglobin (BldV) [Mass fraction] 2.0 % Normal 0.0-2.0 [facility] Comment on above: Order Comment: Speci men Type: VENOUS BLOOD SPECIMENOrdering Facility: [facility] Address: [address] [place] [address] Result Comment: Carb oxyhemoglobin Reference Range for Smokers: 2.0-8.0% Performed By: #### 2 4344-4 ####[facility] LABCLIA [id number] [place] [address] [place] CO2 (BldV) [Partial pressure] 46 mm[Hg] Normal 42-55 [facility] Comment on above: Order Comment: Speci men Type: VENOUS BLOOD SPECIMENOrdering Facility: [facility] Address: [address] [place] [address] Performed By: #### 2 4344-4 ####[facility] LABCLIA [id number] [address] [place] CO2 adjusted to patient's actual temperature (BldV) [Partial pressure] 46 mmHg Normal 42-55 [facility] Comment on above: Order Comment: Speci men Type: VENOUS BLOOD SPECIMENOrdering Facility: [facility] Address: [address] [place] [address] Performed By: #### 2 4344-4 ####[facility] LABCLIA [id number] [place] [address] [place] Glucose [Mass/Vol] 364 mg/dL High 60-105 [facility] Comment on above: Order Comment: Speci men Type: VENOUS BLOOD SPECIMENOrdering Facility: [facility] Address: [address] [place] [address] Performed By: #### 2 4344-4 ####[facility] LABCLIA [id number] [place] [address] [place] HCO3 (Bld) [Moles/Vol] 23 mmol/L Low 24-28 [facility] Comment on above: Order Comment: Speci men Type: VENOUS BLOOD SPECIMENOrdering Facility: [facility] Address: [address] [place] [address] Performed By: #### 2 4344-4 ####[facility] LABCLIA [id number] [place] [address] [place] Hematocrit (Bld) [Volume fraction] 35.9 % Low 39.0-51.0 [facility] Comment on above: Order Comment: Speci men Type: VENOUS BLOOD SPECIMENOrdering Facility: [facility] Address: [address] [place] [address] Performed By: #### 2 4344-4 ####[facility] LABCLIA [id number] [place] [address] [place] Hemoglobin (Bld) [Mass/Vol] 11.6 g/dL Low 13.0-17.0 [facility] Comment on above: Order Comment: Speci men Type: VENOUS BLOOD SPECIMENOrdering Facility: [facility] Address: [address] [place] [address] Performed By: #### 2 4344-4 ####[facility] LABCLIA [id number] [place] [address] [place] Lactate [Moles/Vol] 1.6 mmol/L Normal 0.5-2.2 [facility] Comment on above: Order Comment: Speci men Type: VENOUS BLOOD SPECIMENOrdering Facility: [facility] Address: [address] [place] [address] Performed By: #### 2 4344-4 ####[facility] LABIA [id number] [place] [address] [place] Methemoglobin (Bld) [Mass fraction] 0.9 % Normal 0.0-1.5 [facility] Comment on above: Order Comment: Speci men Type: VENOUS BLOOD SPECIMENOrdering Facility: [facility] Address: [address] [place] [address] Performed By: #### 2 4344-4 ####[facility] LABCLIA [id number] [place] [address] [place] Oxygen (BldV) [Partial pressure] 47 mm[Hg] High 35-45 [facility] Comment on above: Order Comment: Speci men Type: VENOUS BLOOD SPECIMENOrdering Facility: [facility] Address: [address] [place], [place] [address] Performed By: #### 2 4344-4 ####[facility] LABCLIA [id number] [address] [place] [address] [place] Oxygen adjusted to patient's actual temperature (BldV) [Partial pressure] 47 mmHg High 35-45 [facility] Comment on above: Order Comment: Speci men Type: VENOUS BLOOD SPECIMENOrdering Facility: [facility] Address: [address] [place] [address] Performed By: #### 2 4344-4 ####[facility] LABCLIA [id number] [address] [place] [address] [place] Oxygen saturation in Venous blood 79 % Normal 60-85 [facility] Comment on above: Order Comment: Speci men Type: VENOUS BLOOD SPECIMENOrdering Facility: [facility] Address: [address] [place], [place] [address] Performed By: #### 2 4344-4 ####[facility] LABIA [id number] [address] [address] [place] Oxyhemoglobin (BldV) [Mass fraction] 76 % Normal 60-85 [facility] Comment on above: Order Comment: Speci men Type: VENOUS BLOOD SPECIMENOrdering Facility: [facility] Address: [address] [place], [place] [address] Performed By: #### 2 4344-4 ####[facility] LABCLIA [id number] [address] [address] [place] pH (BldV) 7.33 [pH] Normal 7.32-7.42 [facility] Comment on above: Order Comment: Speci men Type: VENOUS BLOOD SPECIMENOrdering Facility: [facility] Address: [address] [place] [address] Performed By: #### 2 4344-4 ####[facility] LABCLIA [id number] [address] [address] [place] pH adjusted to patient's actual temperature (BldV) 7.33 Normal 7.32-7.42 [facility] Comment on above: Order Comment: Speci men Type: VENOUS BLOOD SPECIMENOrdering Facility: [facility] Address: [address] [place] [address] Performed By: #### 2 4344-4 ####[facility] LABCLIA [id number] [address] [address] [place] Sodium [Moles/Vol] 137 mmol/L Normal 136-144 [facility] Comment on above: Order Comment: Speci men Type: VENOUS BLOOD SPECIMENOrdering Facility: [facility] Address: [address] [place] [address] Performed By: #### 2 4344-4 ####[facility] LABIA [id number] [place] [address] [place] INTRAOPERATIVE ECHO PREon INTRAOPERATIVE ECHO PRE Normal [facility] OPERATIVE NOon 12-25-2024 OPERATIVE NO Normal [facility] Pathology biopsy report Rey (Tiss)on 12-25-2024 ADDENDUM 1: Normal [facility] Comment on above: Order Comment: Speci men Type: TISSUE SPECIMENOrdering Facility: [facility] Address: [address] [place] [address] Result Comment: The elastic nature of the artery in part B is demonstrated in the Movat stain.Addendum electronically signed by Junie Smith MD on 01/04/2025 at 1635 EDT Performed By: #### 6 6121-5 ####[facility] LABCLIA [id number] [place] [address] [place] AP DISCLAIMER Normal [facility] Comment on above: Order Comment: Speci men Type: TISSUE SPECIMENOrdering Facility: [facility] Address: [address] [place] [address] Result Comment: Del hernandez Developed Test (LDT) Disclaimer:Performance characteristics of immunohistochemical, immunofluorescent, and chromogenic in-situ hybridization tests have been determined by the performing laboratory within [facility]'s Abundio Jeffrey Pathology and Laboratory Medicine Department ([facility], [facility], [facility], [facility], [facility], [facility], or [facility]) in a manner consistent with CLIA requirements. One or more of these tests may not have been cleared or approved by the FDA. [facility] is regulated under CLIA as qualified to perform high-complexity testing. These tests are used for clinical purposes. These should not be regarded as investigational or for research. Positive and negative controls stain appropriately. Performed By: #### 6 6121-5 ####[facility] LABIA [id number] [address] [place] CASE REPORT Normal [facility] Comment on above: Order Comment: Moses burton Type: TISSUE SPECIMENOrdering Facility: [facility] Address: [address] [place] [address] Result Comment: Surg [facility] Pathology Report Case: [id number] Provider: Roscoe Arias MD Collected: 12/25/2024 10:20 AMOrdering Location: Admitting Received: 12/25/2024 11:46 AMPathologist: Junie Smith MDSpecimens: A) - Heart, Aortic Valve, Explanted Aortic Valve B) - Aorta Performed By: #### 6 6121-5 ####[facility] [id number] [address] [place] CLINICAL HISTORY Normal [facility] Comment on above: Order Comment: Moses burton Type: TISSUE SPECIMENOrdering Facility: [facility] Address: [address] [place] [address] Result Comment: Pre- op diagnosis:Type 1 diabetes mellitus without complication (HCC) [E10.9]Acquired hypothyroidism [E03.9]Pre-operative cardiovascular examination [Z01.810]Aortic valve disorder [I35.9] Performed By: #### 6 6121-5 ####[facility] LABIA [id number] [place] [address] [place] DIAGNOSIS COMMENT Normal [facility] Comment on above: Order Comment: Moses burton Type: TISSUE SPECIMENOrdering Facility: [facility] Address: [address] [place] [address] Performed By: #### 6 6121-5 ####[facility] LABCLIA [id number] [address] FINAL DIAGNOSIS Normal [facility] Comment on above: Order Comment: Speci men Type: TISSUE SPECIMENOrdering Facility: [facility] Address: [address] [place] [address] Result Comment: A. A ortic valve, excision:- Bioprosthetic valve with mild pannus formation (gross examination only).ERR/HMZB. 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 See comment. at 1725 EDT Performed By: #### 6 6121-5 ####[facility] LABIA [id number] [address] FINAL PERFORMING LAB Normal [facility] Comment on above: Order Comment: Speci men Type: TISSUE SPECIMENOrdering Facility: [facility] Address: [address] [place] [address] Result Comment: Diag nostic interpretation performed at: [facility], [address] [place] [address], [place] [address] CLIA# [id number] Director: Marvin Hodges MD Performed By: #### 6 6121-5 ####[facility] LABIA [id number] [address] GROSS DESCRIPTION Normal [facility] Comment on above: Order Comment: Speci men Type: TISSUE SPECIMENOrdering Facility: [facility] Address: [address] [place] [address] Result Comment: Emilia Vazquez eartal, Aortic ValveReceived in formalin labeled explanted aortic [...] lumen shows no thrombosis upon serial sectioning. Craig vascular tissue consistent with artery is present, and an anastomotic line is noted. The external surface is mildly hemorrhagic. Ski Patroller sections are submitted in one cassette.[facility] 12/25/24 5:07 PMGross examination performed at [facility], [address] [place] [address] Performed By: #### 6 6121-5 ####[facility] [id number] [place] [address] [place] Platelets Auto (Bld) [#/Vol] on 12-25-2024 Platelets (Bld) [#/Vol] 116 10*3/uL Low 150-400 [facility] Comment on above: Order Comment: Speci men Type: BLOOD SPECIMENOrdering Facility: [facility] Address: [address] [place] [address] Performed By: #### 7 77-3 ####[facility] [id number] [place] [address] [place] STAPHYLOCOCCUS AUREUS AND MR SA SCREEN, PCR, NASALon 12-25-2024 S. aureus and MRSA panel VAISHALI+probe (Nose) Not detected Normal Not Detected [facility] Comment on above: Order Comment: Speci men Type: SWABOrdering Facility: [facility] Address: [address] [place] [address] Performed By: #### S APCR ####[facility] [id number] [place] [address] [place] THROMBOGRAPH HEPARINASE PANE Manan 12-25-2024 Clot angle after addition of heparinase TEG (Bld) [Angle] 62.0 degrees Normal 47.0-74.0 [facility] Comment on above: Order Comment: Speci men Type: BLOOD SPECIMENOrdering Facility: [facility] Address: [address] [place] [address] Performed By: #### T EGHPP ####[facility] LABIA [id number] [place] [address] [place] Clot Lysis 30 Min post maximum clot amplitude TEG (Bld) [Length fraction] 0.0 % Normal 0.0-8.0 [facility] Comment on above: Order Comment: Speci men Type: BLOOD SPECIMENOrdering Facility: [facility] Address: [address] [place] [address] Performed By: #### T EGHPP ####[facility] [id number] [place] [address] [place] Clotting time after addition of heparinase TEG (Bld) 6.2 minutes Normal 4.0-10.0 [facility] Comment on above: Order Comment: Speci men Type: BLOOD SPECIMENOrdering Facility: [facility] Address: [address] [place] [address] Performed By: #### T EGHPP ####[facility] [id number] [place] [address] [place] Coagulation index TEG Qn (Bld) -1.3 Normal -4.6-3.2 [facility] Comment on above: Order Comment: Speci men Type: BLOOD SPECIMENOrdering Facility: [facility] Address: [address] [place] [address] Result Comment: This test was developed, and its performance characteristics determined by the [facility] Department of Pathology and Laboratory Medicine. It has not been cleared or approved by the FDA. The [facility] Department of Pathology and Laboratory Medicine is regulated under CLIA as qualified to perform high-complexity testing. This test is used for clinical purposes. It should not be regarded as investigational or for research. Performed By: #### T EGHPP ####[facility] LABIA [id number] [place] Maximum clot firmness after addition of heparinase TEG (Bld) [Length] 55.3 mm Normal 51.0-75.0 [facility] Comment on above: Order Comment: Speci men Type: BLOOD SPECIMENOrdering Facility: [facility] Address: [address] [place] [address] Performed By: #### T EGHPP ####[facility] LABCLIA [id number] [address] [place] Thromboelastography after addtion of heparinase panel (Bld) Normal [facility] Comment on above: Order Comment: Speci men Type: BLOOD SPECIMENOrdering Facility: [facility] Address: [address] [place] [address] Result Comment: A th romboelastograph (TEG) study [...] timely manner. Performed By: #### T EGHPP ####[facility] LABCLIA [id number] [address] [place] XR CHEST 1V FRONTAL PORTon 0 12-25-2024 XR CHEST 1V FRONTAL PORT Normal [facility] CARD CATH DIAGNOSTICon 12-24 CARD CATH DIAGNOSTIC Normal [facility] CNPNon 12-23-2024 CNPN Normal [facility] CNCNPATEDon 12-20-2024 CNCNPATED Normal [facility] CNOVon 12-20-2024 CNOV Normal [facility] CNOV Normal [facility] CNOV Normal [facility] STAPHYLOCOCCUS AUREUS AND MR SA SCREEN, PCR, NASALon 12-20-2024 S. aureus and MRSA panel VAISHALI+probe (Nose) Not detected Normal Not Detected [facility] Comment on above: Order Comment: Speci men Type: SWABOrdering Facility: [facility] Address: [address] [place] [address] Performed By: #### S APCR ####[facility] LABCLIA [id number] [place] [address] [place] CBC W Auto Differential pane l (Bld)on 12-19-2024 Basophils (Bld) [#/Vol] 0.12 10*3/uL High <0.11 [facility] Comment on above: Order Comment: Speci men Type: BLOOD SPECIMENOrdering Facility: [facility] Address: [address] [place] [address] Performed By: #### 5 7021-8 ####[facility] LABIA [id number] [place] [address] [place] Basophils/100 WBC (Bld) 1.9 % Normal [facility] Comment on above: Order Comment: Speci men Type: BLOOD SPECIMENOrdering Facility: [facility] Address: [address] [place] [address] Performed By: #### 5 7021-8 ####[facility] LABCLIA [id number] [place] [address] [place] Differential cell count method Nom (Bld) Auto Normal [facility] Comment on above: Order Comment: Speci men Type: BLOOD SPECIMENOrdering Facility: [facility] Address: [address] [place] [address] Performed By: #### 5 7021-8 ####[facility] LABCLIA [id number] [address], [facility] [place] Eosinophils (Bld) [#/Vol] 0.30 10*3/uL Normal <0.46 [facility] Comment on above: Order Comment: Speci men Type: BLOOD SPECIMENOrdering Facility: [facility] Address: [address] [place] [address] Performed By: #### 5 7021-8 ####[facility]CLIA [id number] [facility] [address], [place] [address] [place] Eosinophils/100 WBC (Bld) 4.7 % Normal [facility] Comment on above: Order Comment: Speci men Type: BLOOD SPECIMENOrdering Facility: [facility] Address: [address] [place] [address] Performed By: #### 5 7021-8 ####[facility] LABCLIA [id number] [address], [place] [address] [place] Erythrocyte distribution width (RBC) [Ratio] 12.2 % Normal 11.5-15.0 [facility] Comment on above: Order Comment: Speci men Type: BLOOD SPECIMENOrdering Facility: [facility] Address: [address] [place] [address] Performed By: #### 5 7021-8 ####[facility] LABCLIA [id number] [address], [place] [address] [place] Hematocrit (Bld) [Volume fraction] 43.3 % Normal 39.0-51.0 [facility] Comment on above: Order Comment: Speci men Type: BLOOD SPECIMENOrdering Facility: [facility] Address: [address] [place] [address] Performed By: #### 5 7021-8 ####[facility] LABCLIA [id number] [address], [facility] [place] Hemoglobin (Bld) [Mass/Vol] 14.7 g/dL Normal 13.0-17.0 [facility] Comment on above: Order Comment: Speci men Type: BLOOD SPECIMENOrdering Facility: [facility] Address: [address] [place] [address] Performed By: #### 5 7021-8 ####[facility] LABCLIA [id number] [address] [address] [place] Immature granulocytes (Bld) [#/Vol] 10*3/uL Normal <0.10 [facility] Comment on above: Order Comment: Speci men Type: BLOOD SPECIMENOrdering Facility: [facility] Address: [address] [place] [address] Performed By: #### 5 7021-8 ####[facility] LABCLIA [id number] [place] [address] [place] Immature granulocytes/100 WBC (Bld) 0.2 % Normal [facility] Comment on above: Order Comment: Speci men Type: BLOOD SPECIMENOrdering Facility: [facility] Address: [address] [place] [address] Performed By: #### 5 7021-8 ####[facility] LABCLIA [id number] [place] [address] [place] Lymphocytes (Bld) [#/Vol] 2.15 10*3/uL Normal 1.00-4.00 [facility] Comment on above: Order Comment: Speci men Type: BLOOD SPECIMENOrdering Facility: [facility] Address: [address] [place] [address] Performed By: #### 5 7021-8 ####[facility] LABCLIA [id number] [place] [address] [place] Lymphocytes/100 WBC (Bld) 33.4 % Normal [facility] Comment on above: Order Comment: Speci men Type: BLOOD SPECIMENOrdering Facility: [facility] Address: [address] [place] [address] Performed By: #### 5 7021-8 ####[facility] LABIA [id number] [place] [address] [place] MCH (RBC) [Entitic mass] 30.1 pg Normal 26.0-34.0 [facility] Comment on above: Order Comment: Speci men Type: BLOOD SPECIMENOrdering Facility: [facility] Address: [address] [place] [address] Performed By: #### 5 7021-8 ####[facility] LABIA [id number] [place] [address] [place] MCHC (RBC) [Mass/Vol] 33.9 g/dL Normal 30.5-36.0 [facility] Comment on above: Order Comment: Speci men Type: BLOOD SPECIMENOrdering Facility: [facility] Address: [address] [place] [address] Performed By: #### 5 7021-8 ####[facility] [id number] [place] [address] [place] MCV (RBC) [Entitic vol] 88.7 fL Normal 80.0-100.0 [facility] Comment on above: Order Comment: Speci men Type: BLOOD SPECIMENOrdering Facility: [facility] Address: [address] [place] [address] Performed By: #### 5 7021-8 ####[facility] [id number] [place] [address] [place] Monocytes (Bld) [#/Vol] 0.64 10*3/uL Normal <0.87 [facility] Comment on above: Order Comment: Speci men Type: BLOOD SPECIMENOrdering Facility: [facility] Address: [address] [place] [address] Performed By: #### 5 7021-8 ####[facility] [id number] [place] [id number] [address] [place] Monocytes/100 WBC (Bld) 10.0 % Normal [facility] Comment on above: Order Comment: Speci men Type: BLOOD SPECIMENOrdering Facility: [facility] Address: [address] [place] [address] Performed By: #### 5 7021-8 ####[facility] LABCLIA [id number] [place] [address] [place] Neutrophils (Bld) [#/Vol] 3.21 10*3/uL Normal 1.45-7.50 [facility] Comment on above: Order Comment: Speci men Type: BLOOD SPECIMENOrdering Facility: [facility] Address: [address] [place] [address] Performed By: #### 5 7021-8 ####[facility] LABCLIA [id number] [place] [address] [place] Neutrophils/100 WBC (Bld) 49.8 % Normal [facility] Comment on above: Order Comment: Speci men Type: BLOOD SPECIMENOrdering Facility: [facility] Address: [address] [place] [address] Performed By: #### 5 7021-8 ####[facility] LABCLIA [id number] [place] [address] [place] Nucleated RBC (Bld) [#/Vol] 10*3/uL Normal <0.01 [facility] Comment on above: Order Comment: Speci men Type: BLOOD SPECIMENOrdering Facility: [facility] Address: [address] [place] [address] Performed By: #### 5 7021-8 ####[facility] LABCLIA [id number] [place] [address] [place] Nucleated RBC/100 WBC (Bld) [Ratio] 0.0 /100 WBC Normal [facility] Comment on above: Order Comment: Speci men Type: BLOOD SPECIMENOrdering Facility: [facility] Address: [address] [place] [address] Performed By: #### 5 7021-8 ####[facility] LABCLIA [id number] [place] [id number] [place] Platelet mean volume (Bld) [Entitic vol] 9.7 fL Normal 9.0-12.7 [facility] Comment on above: Order Comment: Speci men Type: BLOOD SPECIMENOrdering Facility: [facility] Address: [address] [place] [address] Performed By: #### 5 7021-8 ####[facility] LABCLIA [id number] [place] [address] [place] Platelets (Bld) [#/Vol] 209 10*3/uL Normal 150-400 [facility] Comment on above: Order Comment: Speci men Type: BLOOD SPECIMENOrdering Facility: [facility] Address: [address] [place] [address] Performed By: #### 5 7021-8 ####[facility] LABCLIA [id number] [place] [address] [place] RBC (Bld) [#/Vol] 4.88 10*6/uL Normal 4.20-6.00 [facility] Comment on above: Order Comment: Speci men Type: BLOOD SPECIMENOrdering Facility: [facility] Address: [address] [place] [address] Performed By: #### 5 7021-8 ####[facility] LABCLIA [id number] [place] [address] [place] WBC (Bld) [#/Vol] 6.43 10*3/uL Normal 3.70-11.00 [facility] Comment on above: Order Comment: Speci men Type: BLOOD SPECIMENOrdering Facility: [facility] Address: [address] [place] [address] Performed By: #### 5 7021-8 ####[facility] LABCLIA [id number] [address] [address] [place] CNOVon 12-19-2024 CNOV Normal [facility] Comprehensive metabolic 2000 panelon 12-19-2024 Albumin [Mass/Vol] 4.3 g/dL Normal 3.9-4.9 [facility] Comment on above: Order Comment: Speci men Type: BLOOD SPECIMENOrdering Facility: [facility] Address: [address] [place] [address] Performed By: #### 2 4323-8, 3016-3, 2532-0 ####[facility] LABCLIA [id number] [place] [address] [place] ALP [Catalytic activity/Vol] 69 U/L Normal 38-113 [facility] Comment on above: Order Comment: Speci men Type: BLOOD SPECIMENOrdering Facility: [facility] Address: [address] [place] [address] Performed By: #### 2 4323-8, 3016-3, 2532-0 ####[facility] LABCLIA [id number] [place] [id number] [place] ALT [Catalytic activity/Vol] 24 U/L Normal 10-54 [facility] Comment on above: Order Comment: Speci men Type: BLOOD SPECIMENOrdering Facility: [facility] Address: [address] [place] [address] Performed By: #### 2 4323-8, 6-3, 2532-0 ####[facility] LABCLIA [id number] [address] [address] [place] Anion gap [Moles/Vol] 10 mmol/L Normal 8-15 [facility] Comment on above: Order Comment: Speci men Type: BLOOD SPECIMENOrdering Facility: [facility] Address: [address] [place], [place] [address] Performed By: #### 2 4323-8, 3016-3, 2532-0 ####[facility]CLIA [id number] [address] [address] [place] AST [Catalytic activity/Vol] 30 U/L Normal 14-40 [facility] Comment on above: Order Comment: Speci men Type: BLOOD SPECIMENOrdering Facility: [facility] Address: [address] [place], [place] [address] Performed By: #### 2 4323-8, 3016-3, 2532-0 ####[facility] LABCLIA [id number] [address] [address] [place] Bilirubin [Mass/Vol] 0.7 mg/dL Normal 0.2-1.3 [facility] Comment on above: Order Comment: Speci men Type: BLOOD SPECIMENOrdering Facility: [facility] Address: [address] [place] [address] Performed By: #### 2 4323-8, 6-3, 2532-0 ####[facility] LABCLIA [id number] [place] [address] [place] Calcium [Mass/Vol] 9.8 mg/dL Normal 8.5-10.2 [facility] Comment on above: Order Comment: Speci men Type: BLOOD SPECIMENOrdering Facility: [facility] Address: [address] [place], [place] [address] Performed By: #### 2 4323-8, 6-3, 2532-0 ####[facility] LABCLIA [id number] [address] [address] [place] Chloride [Moles/Vol] 105 mmol/L Normal 98-107 [facility] Comment on above: Order Comment: Speci men Type: BLOOD SPECIMENOrdering Facility: [facility] Address: [address] [place], [place] [address] Performed By: #### 2 4323-8, 3016-3, 2532-0 ####[facility] LABCLIA [id number] [address] [address] [place] CO2 [Moles/Vol] 28 mmol/L Normal 22-30 [facility] Comment on above: Order Comment: Speci men Type: BLOOD SPECIMENOrdering Facility: [facility] Address: [address] [place] [address] Performed By: #### 2 4323-8, 3016-3, 2532-0 ####[facility] LABCLIA [id number] [place] [address] [place] Creatinine [Mass/Vol] 0.85 mg/dL Normal 0.73-1.22 [facility] Comment on above: Order Comment: Speci men Type: BLOOD SPECIMENOrdering Facility: [facility] Address: [address] [place] [address] Performed By: #### 2 4323-8, 3016-3, 2532-0 ####[facility] LABIA [id number] [place] [address] [place] Creatinine and Glomerular filtration rate.predicted panel (S/P/Bld) 109 mL/min/1.73m??? Normal >=60 [facility] Comment on above: Order Comment: Moses burton Type: BLOOD SPECIMENOrdering Facility: [facility] Address: [address] [place] [address] Result Comment: Rosanna mated Glomerular Filtration Rate [...] actual GFR. Performed By: #### 2 4323-8, 3016-3, 2532-0 ####[facility] LABCLIA [id number] [address] [address] [place] Glucose [Mass/Vol] 100 mg/dL High 74-99 [facility] Comment on above: Order Comment: Speci men Type: BLOOD SPECIMENOrdering Facility: [facility] Address: [address] [place] [address] Result Comment: The [place] Diabetes Association (ADA) provides guidance for cutoff [...] Standards of Medical Care in Diabetes 2016, [place] Diabetes Association. Diabetes Care. 2016.39(Suppl 1). Performed By: #### 2 4323-8, 6-3, 2532-0 ####[facility] LABCLIA [id number] [place] [address] [place] Potassium [Moles/Vol] 4.6 mmol/L Normal 3.7-5.1 [facility] Comment on above: Order Comment: Speci men Type: BLOOD SPECIMENOrdering Facility: [facility] Address: [address] [place], [place] [address] Performed By: #### 2 4323-8, 6-3, 2532-0 ####[facility] LABIA [id number] [place] [address] [place] Protein [Mass/Vol] 6.5 g/dL Normal 6.3-8.0 [facility] Comment on above: Order Comment: Speci men Type: BLOOD SPECIMENOrdering Facility: [facility] Address: [address] [place] [address] Performed By: #### 2 4323-8, 6-3, 2532-0 ####[facility] LABCLIA [id number] [address] [address] [place] Sodium [Moles/Vol] 143 mmol/L Normal 136-144 [facility] Comment on above: Order Comment: Moses burton Type: BLOOD SPECIMENOrdering Facility: [facility] Address: [address] [place] [address] Performed By: #### 2 4323-8, 3016-3, 2532-0 ####[facility] LABCLIA [id number] [address] [address] [place] Urea nitrogen [Mass/Vol] 16 mg/dL Normal 9-24 [facility] Comment on above: Order Comment: Moses men Type: BLOOD SPECIMENOrdering Facility: [facility] Address: [address] [place] [address] Performed By: #### 2 4323-8, 3016-3, 2532-0 ####[facility] LABIA [id number] [address] [address] [place] ECG COMPLETEon 12-19-2024 ECG COMPLETE Normal [facility] HbA1c (Bld)on 12-19-2024 Average glucose Estimated from glycated hemoglobin (Bld) [Mass/Vol] 146 mg/dL Normal [facility] Comment on above: Order Comment: Moses burton Type: BLOOD SPECIMENOrdering Facility: [facility] Address: [address] [place] [address] Result Comment: eAG: (Estimated average glucose) is a calculated value from HgbA1c and is community health program representative of the average blood glucose level in the last 2-3 month period. Performed By: #### 5 5454-3 ####[facility] LABIA [id number] [address] [address] [place] HbA1c (Bld) [Mass fraction] 6.7 % High 4.3-5.6 [facility] Comment on above: Order Comment: Moses josephine Type: BLOOD SPECIMENOrdering Facility: [facility] Address: [address] [place] [address] Result Comment: [place] Diabetes Association guidelines indicate that patients with HgbA1c in the range 5.7-6.4% are at increased risk for development of diabetes, and intervention by lifestyle modification may be beneficial. HgbA1c greater or equal to 6.5% is considered diagnostic of diabetes. Performed By: #### 5 5454-3 ####[facility] LABIA [id number] [place] [address] [place] LDH SerPl-cCncon 12-19-2024 LDH [Catalytic activity/Vol] 303 U/L High 135-225 [facility] Comment on above: Order Comment: Speci men Type: BLOOD SPECIMENOrdering Facility: [facility] Address: [address] [place] [address] Performed By: #### 2 4323-8, 3016-3, 2532-0 ####[facility] [id number] [place] [address] [place] LPa SerPl-mCncon 12-19-2024 Lipoprotein a [Mass/Vol] 63 mg/dL High <30 [facility] Comment on above: Order Comment: Moses burton Type: BLOOD SPECIMENOrdering Facility: [facility] Address: [address] [place] [address] Performed By: #### 1 0835-7 ####[facility] [id number] [place] [address] [place] LUNG DIFFUSION CAPACITY (JONATAN O)on 12-19-2024 LUNG DIFFUSION CAPACITY (DLCO) Normal [facility] PT panel Coag (PPP)on 2024 INR Coag (PPP) [Relative time] 1.0 {INR} Normal 0.9-1.3 [facility] Comment on above: Order Comment: Moses burton Type: BLOOD SPECIMENOrdering Facility: [facility] Address: [address] [place] [address] Result Comment: Humaira min K Antagonist (VKA) Therapeutic Range: INR 2 to 3 (Target INR of 2.5)Note: For patients treated with VKA drugs, such as warfarin, the [place] College of Chest [employer]icians 2012 Guideline recommends [...] al. Chest 2012, 141:7S-47SNishimura RA, et al. [facility] 2017, 70: 252-289 Performed By: #### 3 4528-0, 58960-3 ####[facility] LABCLIA [id number] [address] [place] PT Coag (PPP) [Time] 11.1 s Normal 9.7-13.0 [facility] Comment on above: Order Comment: Speci men Type: BLOOD SPECIMENOrdering Facility: [facility] Address: [address] [place] [address] Performed By: #### 3 4528-0, 52510-7 ####[facility] LABCLIA [id number] [address] [place] PVR ANK PRESS CORRIE VAS LABon 12-19-2024 PVR ANK PRESS [facility]E [facility]AS LAB Normal [facility] SPIROMETRY BASELINE ONLYon 0 12-19-2024 SPIROMETRY BASELINE ONLY Normal [facility] TSH SerPl-aCncon 12-19-2024 TSH Qn 0.915 m[IU]/L Normal 0.270-4.200 [facility] Comment on above: Order Comment: Speci men Type: BLOOD SPECIMENOrdering Facility: [facility] Address: [address] [place] [address] Performed By: #### 2 4323-8, 3016-3, 2532-0 ####[facility] LABCLIA [id number] [address] OF [place] TYPE AND SCREEN,30 DAYon ABO A Normal [facility] Comment on above: Order Comment: Speci men Type: BLOOD SPECIMENOrdering Facility: [facility] Address: [address] [place] [address] Performed By: #### T SCR30 ####[facility] BLOOD BANKIA [id number] [place] [id number] [place] Rh Nom (Bld) Positive Normal [facility] Comment on above: Order Comment: Speci men Type: BLOOD SPECIMENOrdering Facility: [facility] Address: [address] [place] [address] Performed By: #### T SCR30 ####[facility] BLOOD [facility] [id number] [place] [address] [place] URINALYSIS, DIPSTICK ONLYon 12-19-2024 Bilirubin Ql (U) Negative Normal Negative [facility] Comment on above: Order Comment: Speci men Type: URINE SPECIMENOrdering Facility: [facility] Address: [address] [place] [address] Performed By: #### U A ####[facility] LABIA [id number] [place] [address] [place] Clarity (Unsp spec) Clear Normal Clear [facility] Comment on above: Order Comment: Speci men Type: URINE SPECIMENOrdering Facility: [facility] Address: [address] [place] [address] Performed By: #### U A ####[facility] LABCLIA [id number] [place] [address] [place] Color (U) Yellow Normal Yellow [facility] Comment on above: Order Comment: Speci men Type: URINE SPECIMENOrdering Facility: [facility] Address: [address] [place] [address] Performed By: #### U A ####[facility] LABIA [id number] [place] [address] [place] Glucose Test strip (U) [Mass/Vol] Negative Normal Negative [facility] Comment on above: Order Comment: Speci men Type: URINE SPECIMENOrdering Facility: [facility] Address: [address] [place] [address] Performed By: #### U A ####[facility] LABCLIA [id number] [facility] [address], [facility] [place] Hemoglobin Ql (U) Negative Normal Negative [facility] Comment on above: Order Comment: Speci men Type: URINE SPECIMENOrdering Facility: [facility] Address: [address] [place] [address] Performed By: #### U A ####[facility] LABCLIA [id number] [address] STATES OF [facility] Ketones Ql (U) Negative Normal Negative [facility] Comment on above: Order Comment: Speci men Type: URINE SPECIMENOrdering Facility: [facility] Address: [address] [place] [address] Performed By: #### U A ####[facility] LABCLIA [id number] [address] STATES [facility] Leukocyte esterase Test strip Ql (U) Negative Normal Negative [facility] Comment on above: Order Comment: Speci men Type: URINE SPECIMENOrdering Facility: [facility] Address: [address] [place] [address] Performed By: #### U A ####[facility] LABCLIA [id number] [facility] [address] [place] [address] [place] Nitrite Ql (U) Negative Normal Negative [facility] Comment on above: Order Comment: Speci men Type: URINE SPECIMENOrdering Facility: [facility] Address: [address] [place] [address] Performed By: #### U A ####[facility] LABCLIA [id number] [place] [id number] [place] pH (U) 8.0 [pH] Normal <8.5 [facility] Comment on above: Order Comment: Speci men Type: URINE SPECIMENOrdering Facility: [facility] Address: [address] [place] [address] Performed By: #### U A ####[facility] LABCLIA [id number] [place] [address] [place] Protein (U) [Mass/Vol] Negative Normal Negative [facility] Comment on above: Order Comment: Speci men Type: URINE SPECIMENOrdering Facility: [facility] Address: [address] [place] [address] Performed By: #### U A ####[facility] LABIA [id number] [place] [address] [place] Specific gravity (U) [Rel density] 1.014 Normal 1.005-1.030 [facility] Comment on above: Order Comment: Speci men Type: URINE SPECIMENOrdering Facility: [facility] Address: [address] [place] [address] Performed By: #### U A ####[facility] LABIA [id number] [place] [address] [place] Urobilinogen Ql (U) 1.0 EU/dL Normal 0.2-1.0 EU/dL [facility] Comment on above: Order Comment: Speci men Type: URINE SPECIMENOrdering Facility: [facility] Address: [address] [place] [address] Performed By: #### U A ####[facility] LABIA [id number] [place] [address] [place] US CAROTID ARTERIES [facility]AS LABon 12-19-2024 US CAROTID ARTERIES [facility] LAB Normal [facility] XR CHEST 2V FRONTAL/LATon XR CHEST 2V FRONTAL/LAT Normal [facility] XR Chest PA and Lateralon IMPRESSION: No acute radiographic abnormality. Cage Cashier: BOYD Transcribe Date/Time: Dec 19 2024 2:34P Dictated by : CARO ESPAÑA MD This examination was interpreted and the report reviewed and electronically signed by: CARO ESPAÑA MD on Dec 19 2024 2:35PM [facility] DIVISION OF RADIOLOGY * * *Final Report* [...] the thoracic spine. DIVISION OF RADIOLOGY Provider, [facility] - 12/19/2024 * * *Final [...] spine. IMPRESSION IMPRESSION: No acute radiographic abnormality. Cage Cashier: BOYD Transcribe Date/Time: Dec 19 2024 2:34P Dictated by : CARO ESPAÑA MD This examination was interpreted and the report reviewed and electronically signed by: CARO ESPAÑA MD on Dec 19 2024 2:35PM EST [facility] Radiology Study observation (narrative) [facility] XR Chest PA and LateralOrder ed By: Ccf Provider on 12-19-2024 [facility] aPTT PPPon 12-19-2024 aPTT Coag (PPP) [Time] 25.5 s Normal 23.0-32.4 [facility] Comment on above: Order Comment: Speci men Type: BLOOD SPECIMENOrdering Facility: [facility] Address: [address] [place] [address] Performed By: #### 3 4528-0, 26867-1 ####[facility] LABCLIA [id number] [address] OF [facility] Cerv Spine 4 or 5 Viewson Cerv Spine 4 or 5 Views [facility] Imaging Services [address] [place] [address] [id number] Cerv Spine 4 or 5 Views MR#: [id number] Acct: [id number] Name: LUISITO ZHONG Rep #: [id number] : 1980 M 44 From: Ramses Angel MD PCP: ROSCOE UMANZOR Status: REG CLI Study: Cerv Spine 4 or 5 Views Date of Exam: 12/12/24 Exam# [id number] Ordering Dr: Freddy Mujica MD PROCEDURE: CERV SPINE 4 OR 5 VIEWS 12/12/2024 REASON FOR EXAM: NECK AND R ARM PAIN TECHNIQUE: 6 views of the cervical spine. COMPARISON: None FINDINGS: Vertebral body heights are maintained. There is straightening of the normal cervical lordosis. Skcm-ye-vqqhwlpe multilevel disc height loss, endplate osteophyte formation, with uncovertebral and facet arthropathy. These changes are worst at C6-7 where there is at least mild osseous neural foraminal narrowing bilaterally. The odontoid view is unremarkable. Median sternotomy wires are partially imaged. RAD/Cerv Spine 4 or 5 Views IMPRESSION: 1. Lxqr-pj-uuxdyrcn degenerative changes of the cervical spine, worst at C6-7. 2. Straightening of the normal cervical lordosis may be related to pain, positioning, or spasm Reading Location: [id number] CC: Dr. Freddy Mujica MD; ROSCOE UMANZOR Cage Cashier: Signed Normal [facility] CNPNon 12-07-2024 CNPN Normal [facility] CNPNon 12-04-2024 CNPN Normal [facility] CNOVon 11-30-2024 CNOV Normal [facility] CNPNon 11-22-2024 CNPN Normal [facility] CNCOon 11-20-2024 CNCO Letter Text Normal [facility] CNOVon 11-20-2024 CNOV Normal [facility] CNOV Normal [facility] CREATININE, BLOOD (POC)on Creatinine [Mass/Vol] 1 mg/dL 0.7 - 1.4 mg/dL [facility] eGFR (POCT) mL/min/1.73 m2 [facility] Location:Radiology [facility], [address] [place] [address], [facility] Adults (18+): eGFR is calculated using the 2020 CKD-EPI Creatinine Equation. Pediatric patients (<18): eGFR should be clinically calculated using the 2020 Tian Equation. The National Kidney Foundation provides online calculators. [facility]INT OF CARE [facility] CTA CHEST (GATED) W IVCONon 11-20-2024 CTA CHEST (GATED) W IVCON Normal [facility] ECHO TRANSESOPHAGEALon 11-20 ECHO TRANSESOPHAGEAL Normal [facility] NURSING PROGon 11-20-2024 NURSING PROG Normal [facility] CNPNon 11-13-2024 CNPN Normal [facility] CNPNon 11-05-2024 CNPN Normal [facility] ECG 12 lead - CLINIC PERFORM EDon 08-24-2024 Sinus Rhythm [facility] Office Visiton 08-24-2024 Follow-up visit [id number] Italia Zhong 1980 M Date Provider Department Center 08/24/2024 [id number]-WQTOARTERIN MORRIS [facility] NEOCS G None Family History Problem Relation Age of Onset Colon cancer Maternal Grandmother No Known Problems Father No Known Problems Mother Other Sister Comments: MS Heart disease Paternal Grandmother Family Status - Relation Status Age at Maternal Grandmother Father Alive Mother Alive Sister Alive Paternal Grandmother Maternal Grandfather Paternal Grandfather Level of Service:98687 [place] OFFICE/OUTPATIENT ESTABLISHED MOD MDM 30 MIN Reason for Visit and Comments: New Patient [542] Coronary Artery Disease [187] - Aortic Valve disease and AVR Normal [facility] Progress Noteon 08-24-2024 Progress Note [facility] Cardiov ascular Group Cardiology Note Assessment and Plan: # 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 He is re-presenting with dyspnea and an echo done at [facility] that reports elevated gradients (30 mmHg) across [...] with Dr. Arias, his cardiac surgeon at [facility] and I think what makes sense at this time is for him to have the imaging done at [facility] as they have planned; if he were [...] of Dr. Perez who is presenting to [facility]. 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 Cabrera and Dr. Estevez. Unfortunately, not long after this surgical intervention, he had recurring symptoms. Repeat workup, including TTE, LAWSON and CMR demonstrated recurrent subaortic membrane. He sought surgical opinion at [facility], and ultimately underwent repeat surgical intervention on [...] , Rfl: cholecalciferol (Vitamin D-3) 50 MCG (2000 UT) tablet, Take 1 tablet by mouth [...] the morning., (more content not included)... Normal [facility] CNPNon 08-17-2024 CNPN Normal [facility] Progress Noteon 08-07-2024 Progress Note Called patient to re view echo. The echo comments on elevated gradients across the LVOT. He recently had subaortic membrane resection and SAVR at [facility] in 2021- it would be relatively unusual for progression of PrAV stenosis at this time point, which raises suspicion for either LVOT obstruction via hypertrophy or recurrence of membrane. Will obtain echo images from [facility], and plan either LAWSON/MRI. Mr. Zhong reports some slowly increasing exertional limitation. He has reached out to his surgeon at [facility], Dr. Fuentes as well. Normal [facility] .GFRon 07-31-2024 GFR >60 Normal [facility] Comment on above: Result Comment: [...] Performed By: #### C MP, GFR #### [address] [address] GFR Non- >60 Normal [facility] Comment on above: Result Comment: GFR [...] Performed By: #### C MP, GFR #### [address] [address] CMPon 07-31-2024 Albumin Level 3.4 G/dL Normal 3.2-4.8 [facility] Comment on above: Performed By: #### C MP, GFR #### [address] [address] Albumin/Globulin [Mass ratio] 1.0 {ratio} Normal 0.9-1.6 [facility] Comment on above: Performed By: #### C MP, GFR #### [address] [address] ALP [Catalytic activity/Vol] 91 U/L Normal 38-126 [facility] Comment on above: Performed By: #### C MP, GFR #### [address] [address] ALT [Catalytic activity/Vol] 25 U/L Normal 12-55 [facility] Comment on above: Performed By: #### C MP, GFR #### [address] [address] AST [Catalytic activity/Vol] 31 U/L Normal 8-34 [facility] Comment on above: Performed By: #### C MP, GFR #### [place] [id number] Bili Total 0.70 mg/dL Normal 0.20-1.20 [facility] Comment on above: Result Comment: Use of this assay is not recommended for patients undergoing treatment with eltrombopag due to the potential for falsely elevated results. Performed By: #### C MP, GFR #### [place] [id number] BUN/Creatinine Ratio 16.7 ratio Normal 10.0-22.0 [facility] Comment on above: Performed By: #### C MP, GFR #### [place] [address] Calcium [Mass/Vol] 9.7 mg/dL Normal 8.7-10.4 [facility] Comment on above: Performed By: #### C MP, GFR #### [place] [id number] Chloride [Moles/Vol] 105 mmol/L Normal 98-110 [facility] Comment on above: Performed By: #### C MP, GFR #### [place] [id number] CO2 [Moles/Vol] 33 mmol/L High 22-32 [facility] Comment on above: Performed By: #### C MP, GFR #### [place] [id number] Creatinine [Mass/Vol] 0.84 mg/dL Normal 0.60-1.40 [facility] Comment on above: Result Comment: Test ing performed on [employer] analyzer using enzymatic creatinine methodology. Performed By: #### C MP, GFR #### [place] [id number] Electrolyte Balance 6.0 mEq/L Normal 4.0-15.0 [facility] Comment on above: Performed By: #### C MP, GFR #### [place] [id number] Globulin 3.4 G/dL Normal 1.5-3.8 [facility] Comment on above: Performed By: #### C MP, GFR #### [place] [id number] Glucose [Mass/Vol] 107 mg/dL Normal 70-110 [facility] Comment on above: Performed By: #### C MP, GFR #### [place] [id number] Potassium [Moles/Vol] 3.9 mmol/L Normal 3.5-5.0 [facility] Comment on above: Performed By: #### C MP, GFR #### [place] [id number] Sodium [Moles/Vol] 144 mmol/L Normal 136-145 [facility] Comment on above: Performed By: #### C MP, GFR #### [place] [address] Total Protein 6.8 G/dL Normal 5.7-8.2 [facility] Comment on above: Performed By: #### C MP, GFR #### [place] [address] Urea nitrogen [Mass/Vol] 14.0 mg/dL Normal 8.0-22.0 [facility] Comment on above: Performed By: #### C MP, GFR #### [place] [address] CPEPon 07-31-2024 C-Peptide 0.29 ng/mL Low 0.81-3.85 [facility] Comment on above: Performed By: #### C MP, GFR #### [place] [address] TSHon 07-31-2024 TSH 42.772 mIU/mL High 0.550-4.780 [facility] Comment on above: Performed By: #### C MP, GFR #### [place] [address] VIDHon 07-31-2024 Vit. D 25-Hydroxy 22.7 ng/mL Normal [facility] Comment on above: Result Comment: Inte rpretive Values Based on Total 25(OH)D: Severe Deficiency <20 ng/mL Mild to Moderate Deficiency 20-30 ng/mL Optimum Levels 30-100 ng/mL Toxicity Possible >100 ng/mL Performed By: #### C MP, GFR #### [address] [address] .GFRon 07-17-2024 GFR >60 [facility] Comment on above: Result Comment: GFR [...] Performed By: #### C MP, GFR #### [address] [address] GFR Non- >60 [facility] MAIN Comment on above: Result Comment: [...] Performed By: #### C MP, GFR #### [address] [address] A1Con 07-17-2024 Glucose [Mass/Vol] 192 mg/dL Normal [facility] MAIN Comment on above: Result Comment: Rosanna mated Average Glucose calculated by equation ((28.7xA1C)-46.7) Estimated average glucose (eAG) is a calculated value from Hemoglobin A1C and is community health program representative of the average blood glucose level in the last 2-3 month period. Normal range: less than 114 mg/dL Performed By: #### C MP, GFR #### [place] [id number] HbA1c (Bld) [Mass fraction] 8.3 % High 4.0-6.0 [facility] MAIN Comment on above: Performed By: #### C MP, GFR #### [place] [id number] CMPon 07-17-2024 Albumin Level 3.6 G/dL Normal 3.2-4.8 [facility] MAIN Comment on above: Performed By: #### C MP, GFR #### [place] [id number] Albumin/Globulin [Mass ratio] 1.1 {ratio} Normal 0.9-1.6 [facility] MAIN Comment on above: Performed By: #### C MP, GFR #### [address] [address] ALP [Catalytic activity/Vol] 122 U/L Normal 38-126 [facility] MAIN Comment on above: Performed By: #### C MP, GFR #### [place] [id number] ALT [Catalytic activity/Vol] 24 U/L Normal 12-55 [facility] MAIN Comment on above: Performed By: #### C MP, GFR #### [place] [id number] AST [Catalytic activity/Vol] 28 U/L Normal 8-34 [facility] MAIN Comment on above: Performed By: #### C MP, GFR #### [place] [id number] Bili Total 0.60 mg/dL Normal 0.20-1.20 [facility] MAIN Comment on above: Result Comment: Use of this assay is not recommended for patients undergoing treatment with eltrombopag due to the potential for falsely elevated results. Performed By: #### C MP, GFR #### [address] [address] BUN/Creatinine Ratio 22.7 ratio High 10.0-22.0 [facility] MAIN Comment on above: Performed By: #### C MP, GFR #### [address] [address] Calcium [Mass/Vol] 9.9 mg/dL Normal 8.7-10.4 [facility] MAIN Comment on above: Performed By: #### C MP, GFR #### [place] [id number] Chloride [Moles/Vol] 106 mmol/L Normal 98-110 [facility] MAIN Comment on above: Performed By: #### C MP, GFR #### [place] [id number] CO2 [Moles/Vol] 27 mmol/L Normal 22-32 [facility] MAIN Comment on above: Performed By: #### C MP, GFR #### [place] [id number] Creatinine [Mass/Vol] 0.66 mg/dL Normal 0.60-1.40 [facility] MAIN Comment on above: Result Comment: Test ing performed on [employer] analyzer using enzymatic creatinine methodology. Performed By: #### C MP, GFR #### [address] [address] Electrolyte Balance 10.0 mEq/L Normal 4.0-15.0 [facility] MAIN Comment on above: Performed By: #### C MP, GFR #### [address] [address] Globulin 3.3 G/dL Normal 1.5-3.8 [facility] MAIN Comment on above: Performed By: #### C MP, GFR #### [address] [address] Glucose [Mass/Vol] 61 mg/dL Low 70-110 [facility] MAIN Comment on above: Performed By: #### C MP, GFR #### [place] [id number] Potassium [Moles/Vol] 4.2 mmol/L Normal 3.5-5.0 [facility] MAIN Comment on above: Performed By: #### C MP, GFR #### [address] [address] Sodium [Moles/Vol] 143 mmol/L Normal 136-145 [facility] MAIN Comment on above: Performed By: #### C MP, GFR #### [address] [address] Total Protein 6.9 G/dL Normal 5.7-8.2 [facility] MAIN Comment on above: Performed By: #### C MP, GFR #### [address] [address] Urea nitrogen [Mass/Vol] 15.0 mg/dL Normal 8.0-22.0 [facility] MAIN Comment on above: Performed By: #### C MP, GFR #### [address] [address] LIPIDon 07-17-2024 Cholesterol [Mass/Vol] 246 mg/dL High 50-199 [facility] MAIN Comment on above: Result Comment: Chol esterol Reference Interval: Less than 200 Desirable 200-239 Borderline high risk 240 and above High risk Performed By: #### C MP, GFR #### [address] [address] Cholesterol in HDL [Mass/Vol] 94 mg/dL High 40-59 [facility] MAIN Comment on above: Performed By: #### C MP, GFR #### [address] [address] Cholesterol in LDL [Mass/Vol] 131 mg/dL High 0-129 [facility] MAIN Comment on above: Performed By: #### C MP, GFR #### [address] [address] Triglyceride [Mass/Vol] 107 mg/dL Normal 3-149 [facility] MAIN Comment on above: Performed By: #### C MP, GFR #### [address] [address] MALBRon 07-17-2024 U Creatinine 153.2 mg/dL Normal [facility] MAIN Comment on above: Performed By: #### C MP, GFR #### [facility] [address] [place] [address] U Microalb <300 Normal [facility] MAIN Comment on above: Performed By: #### C MP, GFR #### [place] [address] [place] [address] U Ratio Alb/Cre Unable to Calculate Normal 0.0-16.9 [facility] MAIN Comment on above: Result Comment: Unab le to calculate this test result accurately. Results used to calculate this test are outside the reportable range. Performed By: #### C MP, GFR #### [address] [address] VIDHon 07-17-2024 Vit. D 25-Hydroxy 25.9 ng/mL Normal [facility] MAIN Comment on above: Result Comment: Inte rpretive Values Based on Total 25(OH)D: Severe Deficiency <20 ng/mL Mild to Moderate Deficiency 20-30 ng/mL Optimum Levels 30-100 ng/mL Toxicity Possible >100 ng/mL Performed By: #### C MP, GFR #### [place] [address] 36on 05-15-2024 36 Order for echo faxed to [facility] [phone] This is where patient prefers to complete testing Central Scheduling was provided to patient for him to call to schedule. Normal [facility] Office Visiton 05-14-2024 Follow-up visit [id number] [place] Zhong Shelli 1980 M Date Provider Department Center 05/14/2024 LUZ MARIA MCCORMICK [facility] None Family History Problem Relation Age of Onset Colon cancer Maternal Grandmother No Known Problems Father No Known Problems Mother Other Sister Comments: MS Heart disease Paternal Grandmother Family Status - Relation Status Age at Maternal Grandmother Father Alive Mother Alive Sister Alive Paternal Grandmother Maternal Grandfather Paternal Grandfather Level of Service:79107 [place] OFFICE/OUTPATIENT ESTABLISHED MOD MDM 30 MIN Reason for Visit and Comments: 6 Month Follow-up [671] Normal [facility] Progress Noteon 05-14-2024 Progress Note Subjective: Patient: [...] Problems Father No Known Problems Mother Other ([id number]) Sister MS Heart disease Paternal Grandmother Social [...] right upper sternal border. 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 He will likely, since based on my near snf, follow-up with a conduit installer in [place]. Certainly will forward him all this information. Luz Maria Perez MD 05/14/2024 6:54 AM In preparation for this encounter, we (more content not included)... [facility] Text Normal [facility] CNPNon 04-30-2024 CNPN Telephone (AGENDOG) LUISITO ZHONG ([id number]) 1980 M T Date Time Provider Department 04/30/24 DWAYNE ARAUJO AGEJAN During your visit today, we recorded the [...] can ask to be transferred to the [employer] desk. Valeria Hare April 30, 2024 11:02 AM Cielo Bloom 05/01/2024 1:25 PM Signed 2nd attempt. Number dialed has calling restrictions that prevents call from going through. Sent MyChart and unable to be reached letter. Cielo Bloom May 01, 2024 1:25 PM Cielo Bloom 05/03/2024 8:14 AM Signed 3rd attempt. Number dialana has calling restrictions that prevents call from going through. Cielo Bloom May 03, 2024 8:14 AM Allergies As of Date: 04/30/2024 Noted Allergy Reaction HYDROMORPHONE 06/18/2019 9 - Itching TRAMADOL 10/27/2021 14 - Other: See Comments Comments: Burning skin Date Reviewed: 03/27/2024 Reviewed by: Joseline Gracia, RN - Fully Assessed Reason for Visit: [...] SUBCUTANEOUSLY ONCE DAILY - blood sugar diagnostic (FlexyMindTOUCH ULTRA TEST) test strip TEST UP TO [...] once daily. - Blood-Glucose Meter,Continuous (DEXCOM G7 CLOTH BOLT BANDER) misc 1 Each five times a day. - insulin lispro (HUMALOG U-100 INSULIN) 100 unit/mL injection Inject up to 90 units per day via insulin pump. - Blood-Glucose Sensor (DEXCOM G6 SENSOR) xenia Apply new sensor every ten (10) days to abdomen. - Blood-Glucose Meter,Continuous (DEXCOM G6 CLOTH BOLT BANDER) misc Use to check blood sugar at [...] by mouth q 24 HR. - Insulin [place], Disposable, (BD ULTRAFINE III MINI PEN) 31 gauge x 3/16 USE WITH INSULIN PENS ONCE DAILY diagnosis E10.65 PATIENT IS OFF OF INSULIN PUMP AND NOW USING BASAL/BOLUS INSULIN AGAIN - ibuprofen (MOTRIN) 800 mg tablet Take 1 tablet by mouth every 8 hours as needed for pain or fever (specify). - fluticasone (FLONASE) 50 mcg/actuation nasal spray Use 1 [place] in the nose once daily as needed. [...] Tricuspid r (more content not included)... Normal [facility] A1Con 04-17-2024 Glucose [Mass/Vol] 171 mg/dL Normal [facility] MAIN Comment on above: Result Comment: Rosanna mated Average Glucose calculated by equation ((28.7xA1C)-46.7) Estimated average glucose (eAG) is a calculated value from Hemoglobin A1C and is community health program representative of the average blood glucose level in the last 2-3 month period. Normal range: less than 114 mg/dL Performed By: #### T AVILA MALIK, CMP, PBNP, CBC, ANEU, ADIFF, GFR #### [address] [address] HbA1c (Bld) [Mass fraction] 7.6 % High 4.0-6.0 [facility] MAIN Comment on above: Performed By: #### T AVILA MALIK, AIDA, PBNP, CBC, ANEU, ADIFF, GFR #### [address] [address] .GFRon 04-16-2024 GFR Non- >60 [facility] MAIN Comment on above: Result Comment: [...] AIDA, PBNP, CBC, ANEU, ADIFF, GFR #### [address] [address] GFR >60 [facility] MAIN Comment on above: Result Comment: GFR [...] AIDA, PBNP, CBC, ANEU, ADIFF, GFR #### [place] [id number] CMPon 04-16-2024 Albumin Level 3.3 G/dL Normal 3.2-4.8 [facility] MAIN Comment on above: Performed By: #### T AVILA MALIK, AIDA, PBNP, CBC, ANEU, ADIFF, GFR #### [place] [address] Albumin/Globulin [Mass ratio] 1.0 {ratio} Normal 0.9-1.6 [facility] MAIN Comment on above: Performed By: #### T AVILA MALIK, AIDA, PBNP, CBC, ANEU, ADIFF, GFR #### [place] [address] ALP [Catalytic activity/Vol] 79 U/L Normal 38-126 [facility] Comment on above: Performed By: #### T AVILA MALIK, AIDA, PBNP, CBC, ANEU, ADIFF, GFR #### [place] [id number] ALT [Catalytic activity/Vol] 28 U/L Normal 12-55 [facility] Comment on above: Performed By: #### T AVILA MALIK, AIDA, PBNP, CBC, ANEU, ADIFF, GFR #### [place] [address] AST [Catalytic activity/Vol] 35 U/L High 8-34 [facility] Comment on above: Performed By: #### T AVILA MALIK, AIDA, PBNP, CBC, ANEU, ADIFF, GFR #### [place] [address] Bili Total 0.50 mg/dL Normal 0.20-1.20 [facility] MAIN Comment on above: Result Comment: Use of this assay is not recommended for patients undergoing treatment with eltrombopag due to the potential for falsely elevated results. Performed By: #### T AVILA MALIK, AIDA, PBNP, CBC, ANEU, ADIFF, GFR #### [facility] [address] [place], [place] [address] BUN/Creatinine Ratio 12.5 ratio Normal 10.0-22.0 [facility] MAIN Comment on above: Performed By: #### T AVILA MALIK, AIDA, PBNP, CBC, ANEU, ADIFF, GFR #### [address] [address] Calcium [Mass/Vol] 9.0 mg/dL Normal 8.7-10.4 [facility] MAIN Comment on above: Performed By: #### T AVILA MALIK, AIDA, PBNP, CBC, ANEU, ADIFF, GFR #### [address] [address] Chloride [Moles/Vol] 106 mmol/L Normal 98-110 [facility] Comment on above: Performed By: #### T AVILA MALIK, AIDA, PBNP, CBC, ANEU, ADIFF, GFR #### [address] [address] CO2 [Moles/Vol] 27 mmol/L Normal 22-32 [facility] Comment on above: Performed By: #### T AVILA MALIK, AIDA, PBNP, CBC, ANEU, ADIFF, GFR #### [address] [address] Creatinine [Mass/Vol] 0.80 mg/dL Normal 0.60-1.40 [facility] MAIN Comment on above: Result Comment: Test ing performed on [employer] analyzer using enzymatic creatinine methodology. Performed By: #### T AVILA MALIK, AIDA, PBNP, CBC, ANEU, ADIFF, GFR #### [address] [address] Electrolyte Balance 9.0 mEq/L Normal 4.0-15.0 [facility] MAIN Comment on above: Performed By: #### T AVILA MALIK, AIDA, PBNP, CBC, ANEU, ADIFF, GFR #### [address] [address] Globulin 3.3 G/dL Normal 1.5-3.8 [facility] MAIN Comment on above: Performed By: #### T AVILA MALIK, CMP, PBNP, CBC, ANEU, ADIFF, GFR #### [address] [address] Glucose [Mass/Vol] 98 mg/dL Normal 70-110 [facility] Comment on above: Performed By: #### T AVILA MALIK, CMP, PBNP, CBC, ANEU, ADIFF, GFR #### [address] [address] Potassium [Moles/Vol] 3.9 mmol/L Normal 3.5-5.0 [facility] Comment on above: Performed By: #### T AVILA MALIK, AIDA, PBNP, CBC, ANEU, ADIFF, GFR #### [address] [address] Sodium [Moles/Vol] 142 mmol/L Normal 136-145 [facility] Comment on above: Performed By: #### T AVILA MALIK, AIDA, PBNP, CBC, ANEU, ADIFF, GFR #### [address] [address] Total Protein 6.6 G/dL Normal 5.7-8.2 [facility] MAIN Comment on above: Result Comment: No te - New Reference Range in effect 20 Performed By: #### T AVILA MALIK, AIDA, PBNP, CBC, ANEU, ADIFF, GFR #### [address] [address] Urea nitrogen [Mass/Vol] 10.0 mg/dL Normal 8.0-22.0 [facility] MAIN Comment on above: Performed By: #### T AVILA MALIK, AIDA, PBNP, CBC, ANEU, ADIFF, GFR #### [address] [address] CMP EXTERNAL QAIon 4 Albumin [Mass/Vol] 3.3 g/dL [facility] Albumin/Globulin [Mass ratio] 1 {ratio} [facility] Bilirubin [Mass/Vol] 0.5 mg/dL [facility] Calcium [Mass/Vol] 9 mg/dL [facility] Creatinine per volume 0.8 [facility] ELECTROLYTE BALANCE 9 [facility] Globulin, Total 3.3 [facility] Protein [Mass/Vol] 6.6 g/dL [facility] Urea nitrogen [Mass/Vol] 10 mg/dL [facility] Urea nitrogen/Creatinine [Mass ratio] 12.5 mg/mg [facility] CRPon 04-16-2024 CRP [Mass/Vol] mg/L Normal 0.0-1.0 [facility] MAIN Comment on above: Result Comment: No te - New Reference Range in effect 20 Performed By: #### T AVILA MALIK, CMP, PBNP, CBC, ANEU, ADIFF, GFR #### [address] [address] CRP [Mass/Vol]on 04-16-2024 C-Reactive Protein - Intl 0.0 - 1.0 [facility] HCVon 04-16-2024 Hep C Ab Non-Reactive Normal Non-Reactive [facility] MAIN Comment on above: Performed By: #### T AVILA MALIK, AIDA, PBNP, CBC, ANEU, ADIFF, GFR #### [address] [address] Hep C Ab Int Normal [facility] MAIN Comment on above: Result Comment: Nonr [...] AIDA, PBNP, CBC, ANEU, ADIFF, GFR #### [address] [address] HEP C VIRUS ANTIBODY (LABCOR P)on 04-16-2024 HEP C VIRUS AB Non-Reactive [facility] HIVon 04-16-2024 HIV 1/2 Ab Non-Reactive Normal Non-Reactive [facility] MAIN Comment on above: Result Comment: Spec imen is negative for anti-HIV-1 and anti-HIV-2. Performed By: #### T AVILA MALIK, AIDA, PBNP, CBC, ANEU, ADIFF, GFR #### [address] [address] HIV 1&2 ANTIBODY SCREEN/P24 ANTIGENOrdered By: Marry Granados on 04-16-2024 HIV 1 and 2 Ab IA.rapid Nom (S/P/Bld) Non-Reactive [facility] HbA1c (Bld)on 04-16-2024 HbA1c (Bld) [Mass fraction] 7.6 % Abnormal 4.0 - 6.0 % [facility] LIPIDon 04-16-2024 Cholesterol [Mass/Vol] 181 mg/dL Normal 50-199 [facility] Comment on above: Result Comment: Chol esterol Reference Interval: Less than 200 Desirable 200-239 Borderline high risk 240 and above High risk Performed By: #### AVILA HOLLAND, CMP, PBNP, CBC, ANEU, ADIFF, GFR #### [address] [address] Cholesterol in HDL [Mass/Vol] 59 mg/dL Normal 40-59 [facility] Comment on above: Performed By: #### AVILA HOLLAND, AIDA, PBNP, CBC, ANEU, ADIFF, GFR #### [address] [address] Cholesterol in LDL [Mass/Vol] 107 mg/dL Normal 0-129 [facility] Comment on above: Performed By: #### AVILA HOLLAND, AIDA, PBNP, CBC, ANEU, ADIFF, GFR #### [address] [address] Triglyceride [Mass/Vol] 75 mg/dL Normal 3-149 [facility] Comment on above: Performed By: #### AVILA HOLLAND, CMP, PBNP, CBC, ANEU, ADIFF, GFR #### [address] [address] No Panel Informationon 04-16 Interpretation and review of laboratory results Abnormal [facility] No Panel InformationOrdered By: Marry Granados on 04-16-2024 [facility] TCANCon 04-16-2024 Test cancelled: CBC Normal [facility] MAIN Comment on above: Performed By: #### AVILA HOLLAND, CMP, PBNP, CBC, ANEU, ADIFF, GFR #### [address] [place], [place] [address] TSHon 04-16-2024 TSH 83.067 mIU/mL High 0.550-4.780 [facility] MAIN Comment on above: Result Comment: No te - New Reference Range in effect 20 Performed By: #### T AVILA MALIK, CMP, PBNP, CBC, ANEU, ADIFF, GFR #### [address] [address] TSH (EXTERNAL)on 04-16-2024 TSH Qn 83.067 m[IU]/L Abnormal [facility] VIDHon 04-16-2024 Vit. D 25-Hydroxy 25.9 ng/mL Normal [facility] MAIN Comment on above: Result Comment: Inte rpretive Values Based on Total 25(OH)D: Severe Deficiency <20 ng/mL Mild to Moderate Deficiency 20-30 ng/mL Optimum Levels 30-100 ng/mL Toxicity Possible >100 ng/mL Performed By: #### T AVILA MALIK, AIDA, PBNP, CBC, ANEU, ADIFF, GFR #### [address] [address] VITAMIN D 25 HYDROXYon 04-16 25-hydroxyvitamin D3 [Mass/Vol] 25.9 ng/mL Abnormal 31.0 - 80.0 ng/mL [facility] .Auto Diffon 04-11-2024 Basophil, Absolute 0.1 10 3/mcL Normal 0.0-0.3 [facility] MAIN Comment on above: Performed By: #### T AVILA MALIK, CMP, PBNP, CBC, ANEU, ADIFF, GFR #### [address] [address] Basophils/100 WBC (Bld) 0.6 % Normal 0.0-2.5 [facility] Comment on above: Performed By: #### T AVILA MALIK, CMP, PBNP, CBC, ANEU, ADIFF, GFR #### [address] [address] Eosinophil, Absolute 0.2 10 3/mcL Normal 0.0-0.7 [facility] MAIN Comment on above: Performed By: #### T AVILA MALIK, CMP, PBNP, CBC, ANEU, ADIFF, GFR #### [address] [address] Eosinophils/100 WBC (Bld) 1.6 % Normal 0.0-6.0 [facility] Comment on above: Performed By: #### T AVILA MALIK, CMP, PBNP, CBC, ANEU, ADIFF, GFR #### [address] [address] Lymphocyte, Absolute 1.3 10 3/mcL Normal 0.9-4.3 [facility] MAIN Comment on above: Performed By: #### T AVILA MALIK, CMP, PBNP, CBC, ANEU, ADIFF, GFR #### [address] [address] Lymphocytes/100 WBC (Bld) 13.5 % Low 20.0-40.0 [facility] Comment on above: Performed By: #### T AVILA MALIK, AIDA, PBNP, CBC, ANEU, ADIFF, GFR #### [address] [address] Monocyte, Absolute 0.8 10 3/mcL Normal 0.1-1.4 [facility] MAIN Comment on above: Performed By: #### T AVILA MALIK, CMP, PBNP, CBC, ANEU, ADIFF, GFR #### [address] [address] Monocytes/100 WBC (Bld) 8.7 % Normal 2.0-13.0 [facility] MAIN Comment on above: Performed By: #### T AVILA MALIK, CMP, PBNP, CBC, ANEU, ADIFF, GFR #### [address] [address] Neutrophils/100 WBC (Bld) 75.6 % High 50.0-75.0 [facility] Comment on above: Performed By: #### T AVILA MALIK, CMP, PBNP, CBC, ANEU, ADIFF, GFR #### [address] [address] .GFRon 04-11-2024 GFR Non- >60 Normal [facility] MAIN Comment on above: Result Comment: GFR [...] AIDA, PBNP, CBC, ANEU, ADIFF, GFR #### [address] [address] GFR >60 [facility] MAIN Comment on above: Result Comment: GFR [...] AIDA, PBNP, CBC, ANEU, ADIFF, GFR #### [address] [address] .AVILAon 04-11-2024 Monocyte Distribution Width 16.88 Normal 0.00-20.00 [facility] MAIN Comment on above: Result Comment: For ED adult patients suspected of sepsis, MDW<=20.0 does not rule out sepsis or risk of sepsis Performed By: #### T AVILA MALIK, CMP, PBNP, CBC, ANEU, ADIFF, GFR #### [address] [address] .NEUABSon 04-11-2024 Neutrophil, Absolute 7.4 10 3/mcL Normal 2.3-8.1 [facility] MAIN Comment on above: Performed By: #### T AVILA MALIK, AIDA, PBNP, CBC, ANEU, ADIFF, GFR #### [address] [address] BMPon 04-11-2024 BUN/Creatinine Ratio 19.8 ratio Normal 10.0-22.0 [facility] MAIN Comment on above: Performed By: #### T AVILA MALIK, AIDA, PBNP, CBC, ANEU, ADIFF, GFR #### [address] [address] Calcium [Mass/Vol] 9.1 mg/dL Normal 8.7-10.4 [facility] MAIN Comment on above: Performed By: #### T AVILA MALIK, AIDA, PBNP, CBC, ANEU, ADIFF, GFR #### [address] [address] Chloride [Moles/Vol] 98 mmol/L Normal 98-110 [facility] MAIN Comment on above: Performed By: #### T AVILA MALIK, AIDA, PBNP, CBC, ANEU, ADIFF, GFR #### [address] [address] CO2 [Moles/Vol] 26 mmol/L Normal 22-32 [facility] MAIN Comment on above: Performed By: #### T AVILA MALIK, AIDA, PBNP, CBC, ANEU, ADIFF, GFR #### [address] [address] Creatinine [Mass/Vol] 0.81 mg/dL Normal 0.60-1.40 [facility] MAIN Comment on above: Result Comment: Test ing performed on [employer] analyzer using enzymatic creatinine methodology. Performed By: #### T AVILA MALIK, AIDA, PBNP, CBC, ANEU, ADIFF, GFR #### [address] [address] Electrolyte Balance 9.0 mEq/L Normal 4.0-15.0 [facility] MAIN Comment on above: Performed By: #### T AVILA MALIK, AIDA, PBNP, CBC, ANEU, ADIFF, GFR #### [address] [address] Glucose [Mass/Vol] 409 mg/dL Critically abnormal 70-110 [facility] MAIN Comment on above: Performed By: #### T AVILA MALIK, AIDA, PBNP, CBC, ANEU, ADIFF, GFR #### [place] [id number] Potassium [Moles/Vol] 4.1 mmol/L Normal 3.5-5.0 [facility] MAIN Comment on above: Performed By: #### T AVILA MALIK, AIDA, PBNP, CBC, ANEU, ADIFF, GFR #### [address] [address] Sodium [Moles/Vol] 133 mmol/L Low 136-145 [facility] MAIN Comment on above: Performed By: #### T AVILA MALIK, AIDA, PBNP, CBC, ANEU, ADIFF, GFR #### [address] [address] Urea nitrogen [Mass/Vol] 16.0 mg/dL Normal 8.0-22.0 [facility] Comment on above: Performed By: #### T AVILA MALIK, AIDA, PBNP, CBC, ANEU, ADIFF, GFR #### [address] [address] CBCon 04-11-2024 Erythrocyte distribution width (RBC) [Ratio] 13.0 % Normal 11.5-15.5 [facility] Comment on above: Performed By: #### T AVILA MALIK, AIDA, PBNP, CBC, ANEU, ADIFF, GFR #### [address] [address] Hematocrit (Bld) [Volume fraction] 39.7 % Low 40.0-52.0 [facility] MAIN Comment on above: Performed By: #### T AVILA MALIK, AIDA, PBNP, CBC, ANEU, ADIFF, GFR #### [place] [address] Hgb 13.9 G/dL Normal 13.0-17.5 [facility] Comment on above: Performed By: #### T AVILA MALIK, AIDA, PBNP, CBC, ANEU, ADIFF, GFR #### [place] [address] MCH (RBC) [Entitic mass] 32.9 pg Normal 27.0-33.0 [facility] Comment on above: Performed By: #### T AVILA MALIK, AIDA, PBNP, CBC, ANEU, ADIFF, GFR #### [place] [address] MCHC 34.9 G/dL Normal 32.0-36.0 [facility] Comment on above: Performed By: #### T AVILA MALIK, AIDA, PBNP, CBC, ANEU, ADIFF, GFR #### [place] [address] MCV (RBC) [Entitic vol] 94.2 fL Normal 81.0-100.0 [facility] Comment on above: Performed By: #### T AVILA MALIK, AIDA, PBSHELLY, CBC, ANEU, ADIFF, GFR #### [place] [address] Platelet 198 10 3/mcL Normal 150-450 [facility] Comment on above: Performed By: #### T AVILA MALIK, AIDA, PBSHELLY, CBC, ANEU, ADIFF, GFR #### [place] [address] Platelet mean volume (Bld) [Entitic vol] 8.3 fL Normal 6.4-10.5 [facility] Comment on above: Performed By: #### T AVILA MALIK, AIDA, PBNP, CBC, ANEU, ADIFF, GFR #### [place] [address] RBC 4.22 10 6/mcL Low 4.50-6.00 [facility] Comment on above: Performed By: #### T AVILA MALIK, AIDA, PBNP, CBC, ANEU, ADIFF, GFR #### [facility] [address] [place] [address] WBC 9.8 10 3/mcL Normal 4.5-10.8 [facility] Comment on above: Performed By: #### T AVILA MALIK, CMP, PBNP, CBC, ANEU, ADIFF, GFR #### [place] [id number] [place] [address] LABORATORYOrdered By: Kennedy Lind on 04-11-2024 Blood Glucose Testing Reason Symptoms of hyperglycemia (04/11/24 4:47 AM) [facility] Work Phone: Glucose [Mass/Vol] 449 mg/dL Invalid Interpretation Code 70 - 110 mg/dL [facility] Work Phone: LABORATORYOrdered By: SYSTEM SYSTEM on 04-11-2024 Basophils (Bld) [#/Vol] 0.1 103/mcL Normal 0.0 - 0.3 10^3/mcL AH Workflow SS Basophils/100 WBC (Bld) 0.6 % Normal 0.0 - 2.5 % Workflow SS Calcium [Mass/Vol] 9.1 mg/dL Normal 8.7 - 10. 4 mg/dL AH ADM SS Chloride [Moles/Vol] 98 mmol/L Normal 98 - 11 0 mEq/L AH ADM SS CO2 [Moles/Vol] 26 mmol/L Normal 22 - 32 mEq/L AH ADM SS Creatinine [Mass/Vol] 0.81 mg/dL Normal 0.60 - 1.40 mg/dL AH ADM SS Comment on above: Interpretive Data: T esting performed on [employer] analyzer using enzymatic creatinine methodology. Electrolyte Balance 9.0 mEq/L Normal 4.0 - 15 .0 mEq/L AH ADM SS Eosinophils (Bld) [#/Vol] 0.2 103/mcL Normal 0.0 - 0.7 10^3/mcL AH Workflow SS Eosinophils/100 WBC (Bld) 1.6 % Normal 0.0 - 6.0 % AH Workflow SS Erythrocyte distribution width (RBC) [Ratio] 13.0 % Normal 11.5 - 15.5 % AH Workflow SS GFR/1.73 sq M.predicted among blacks MDRD (S/P/Bld) [Vol rate/Area] ml/min/1.73sqm Invalid Interpretation Code [facility] Comment on above: Interpretive Data: GFR Population [...] (S/P/Bld) [Vol rate/Area] ml/min/1.73sqm Invalid Interpretation Code [facility] Comment on above: Interpretive Data: GFR Population [...] Code 70 - 110 mg/dL ADM SS Hematocrit (Bld) [Volume fraction] 39.7 % Low 40.0 - 52.0 % Workflow SS Hemoglobin (Bld) [Mass/Vol] 13.9 G/dL Normal 13.0 - 17.5 G/dL Workflow SS Lymphocytes (Bld) [#/Vol] 1.3 103/mcL Normal 0.9 - 4.3 10^3/mcL Workflow SS Lymphocytes/100 WBC (Bld) 13.5 % Low 20.0 - 40.0 % Workflow SS MCH (RBC) [Entitic mass] 32.9 [...] 165 mg/dL High 70 - 110 mg/dL [facility] Work Phone: XR FOOT MINIMUM 3 VIEWS MADHAVI Bush 04-11-2024 XR FOOT MINIMUM 3 VIEWS RIGHT [...] 04/11/2024 4:01:12 AM Ordering Provider: ROSCOE Eastman [facility] .Auto Diffon 04-06-2024 Basophil, Absolute 0.1 10 3/mcL Normal 0.0-0.3 [facility] Comment on above: Performed By: #### T AVILA MALIK, CMP, PBNP, CBC, ANEU, ADIFF, GFR #### [facility] [address] [place] [address] Basophils/100 WBC (Bld) 0.9 % Normal 0.0-2.5 [facility] Comment on above: Performed By: #### T AVILA MALIK, CMP, PBNP, CBC, ANEU, ADIFF, GFR #### [address] [address] Eosinophil, Absolute 0.0 10 3/mcL Normal 0.0-0.7 [facility] Comment on above: Performed By: #### T AVILA MALIK, CMP, PBNP, CBC, ANEU, ADIFF, GFR #### [address] [address] Eosinophils/100 WBC (Bld) 0.2 % Normal 0.0-6.0 [facility] Comment on above: Performed By: #### T AVILA MALIK, AIDA, PBNP, CBC, ANEU, ADIFF, GFR #### [address] [address] Lymphocyte, Absolute 1.8 10 3/mcL Normal 0.9-4.3 [facility] Comment on above: Performed By: #### T AVILA MALIK, AIDA, PBNP, CBC, ANEU, ADIFF, GFR #### [address] [address] Lymphocytes/100 WBC (Bld) 20.4 % Normal 20.0-40.0 [facility] Comment on above: Performed By: #### T AVILA MALIK, AIDA, PBNP, CBC, ANEU, ADIFF, GFR #### [address] [address] Monocyte, Absolute 0.8 10 3/mcL Normal 0.1-1.4 [facility] Comment on above: Performed By: #### T AVILA MALIK, CMP, PBNP, CBC, ANEU, ADIFF, GFR #### [address] [address] Monocytes/100 WBC (Bld) 8.7 % Normal 2.0-13.0 [facility] Comment on above: Performed By: #### T AVILA MALIK, CMP, PBNP, CBC, ANEU, ADIFF, GFR #### [address] [address] Neutrophils/100 WBC (Bld) 69.8 % Normal 50.0-75.0 [facility] Comment on above: Performed By: #### T AVILA MALIK, CMP, PBNP, CBC, ANEU, ADIFF, GFR #### [address] [address] .GFRon 04-06-2024 GFR >60 [facility] Comment on above: Result Comment: GFR [...] Performed By: #### C MP, GFR #### [address] [address] GFR Non- >60 [facility] Comment on above: Result Comment: [...] Performed By: #### C MP, GFR #### [address] [address] .Whussein 04-06-2024 Monocyte Distribution Width 16.75 Normal 0.00-20.00 [facility] Comment on above: Result Comment: For ED adult patients suspected of sepsis, MDW<=20.0 does not rule out sepsis or risk of sepsis Performed By: #### T AVILA MALIK, AIDA, PBNP, CBC, ANEU, ADIFF, GFR #### [place] [address] .NEUABSon 04-06-2024 Neutrophil, Absolute 6.3 10 3/mcL Normal 2.3-8.1 [facility] Comment on above: Performed By: #### T AVILA MALIK, AIDA, PBNP, CBC, ANEU, ADIFF, GFR #### [place] [id number] CBCon 04-06-2024 Erythrocyte distribution width (RBC) [Ratio] 13.6 % Normal 11.5-15.5 [facility] Comment on above: Performed By: #### T AVILA MALIK, AIDA, PBNP, CBC, ANEU, ADIFF, GFR #### [place] [address] Hematocrit (Bld) [Volume fraction] 44.2 % Normal 40.0-52.0 [facility] Comment on above: Performed By: #### T AVILA MALIK, AIDA, PBNP, CBC, ANEU, ADIFF, GFR #### [place] [address] Hgb 14.8 G/dL Normal 13.0-17.5 [facility] Comment on above: Performed By: #### T AVILA MALIK, AIDA, PBNP, CBC, ANEU, ADIFF, GFR #### [place] [address] MCH (RBC) [Entitic mass] 32.1 pg Normal 27.0-33.0 [facility] Comment on above: Performed By: #### T AVILA MALIK, AIDA, PBNP, CBC, ANEU, ADIFF, GFR #### [place] [address] MCHC 33.6 G/dL Normal 32.0-36.0 [facility] Comment on above: Performed By: #### T AVILA MALIK, AIDA, PBNP, CBC, ANEU, ADIFF, GFR #### [place] [address] MCV (RBC) [Entitic vol] 95.5 fL Normal 81.0-100.0 [facility] Comment on above: Performed By: #### T AVILA MALIK, AIDA, PBNP, CBC, ANEU, ADIFF, GFR #### [place] [address] Platelet 185 10 3/mcL Normal 150-450 [facility] Comment on above: Performed By: #### T AVILA MALIK, AIDA, PBNP, CBC, ANEU, ADIFF, GFR #### [place] [address] Platelet mean volume (Bld) [Entitic vol] 8.3 fL Normal 6.4-10.5 [facility] Comment on above: Performed By: #### T AVILA MALIK, AIDA, PBNP, CBC, ANEU, ADIFF, GFR #### [place] [address] RBC 4.63 10 6/mcL Normal 4.50-6.00 [facility] Comment on above: Performed By: #### T AVILA MALIK, AIDA, PBNP, CBC, ANEU, ADIFF, GFR #### [place] [address] WBC 9.0 10 3/mcL Normal 4.5-10.8 [facility] Comment on above: Performed By: #### T AVILA MALIK, AIDA, PBNP, CBC, ANEU, ADIFF, GFR #### [place] [address] CMPon 04-06-2024 Albumin Level 3.9 G/dL Normal 3.2-4.8 [facility] Comment on above: Performed By: #### T AVILA MALIK, AIDA, PBNP, CBC, ANEU, ADIFF, GFR #### [place] [address] Albumin/Globulin [Mass ratio] 1.2 {ratio} Normal 0.9-1.6 [facility] Comment on above: Performed By: #### T AVILA MALIK, AIDA, PBNP, CBC, ANEU, ADIFF, GFR #### [address] [address] ALP [Catalytic activity/Vol] 79 U/L Normal 38-126 [facility] Comment on above: Performed By: #### T AVILA MALIK, CMP, PBNP, CBC, ANEU, ADIFF, GFR #### [address] [address] ALT [Catalytic activity/Vol] 29 U/L Normal 12-55 [facility] Comment on above: Performed By: #### T AVILA MALIK, CMP, PBNP, CBC, ANEU, ADIFF, GFR #### [address] [address] AST [Catalytic activity/Vol] 32 U/L Normal 8-34 [facility] Comment on above: Performed By: #### T AVILA MALIK, AIDA, PBNP, CBC, ANEU, ADIFF, GFR #### [address] [address] Bili Total 1.20 mg/dL Normal 0.20-1.20 [facility] Comment on above: Result Comment: Use of this assay is not recommended for patients undergoing treatment with eltrombopag due to the potential for falsely elevated results. Performed By: #### T AVILA MALIK, AIDA, PBNP, CBC, ANEU, ADIFF, GFR #### [address] [address] BUN/Creatinine Ratio 15.6 ratio Normal 10.0-22.0 [facility] Comment on above: Performed By: #### T AVILA MALIK, AIDA, PBNP, CBC, ANEU, ADIFF, GFR #### [address] [address] Calcium [Mass/Vol] 9.8 mg/dL Normal 8.7-10.4 [facility] Comment on above: Performed By: #### T AVILA MALIK, CMP, PBNP, CBC, ANEU, ADIFF, GFR #### [address] [address] Chloride [Moles/Vol] 106 mmol/L Normal 98-110 [facility] Comment on above: Performed By: #### T AVILA MALIK, AIDA, PBNP, CBC, ANEU, ADIFF, GFR #### [address] [address] CO2 [Moles/Vol] 28 mmol/L Normal 22-32 [facility] Comment on above: Performed By: #### T AVILA MALIK, AIDA, PBNP, CBC, ANEU, ADIFF, GFR #### [address] [address] Creatinine [Mass/Vol] 0.77 mg/dL Normal 0.60-1.40 [facility] Comment on above: Result Comment: Test ing performed on [employer] analyzer using enzymatic creatinine methodology. Performed By: #### T AVILA MALIK, AIDA, PBNP, CBC, ANEU, ADIFF, GFR #### [address] [address] Electrolyte Balance 6.0 mEq/L Normal 4.0-15.0 [facility] Comment on above: Performed By: #### T AVILA MALIK, AIDA, PBNP, CBC, ANEU, ADIFF, GFR #### [address] [address] Globulin 3.3 G/dL Normal 1.5-3.8 [facility] Comment on above: Performed By: #### T AVILA MALIK, AIDA, PBNP, CBC, ANEU, ADIFF, GFR #### [address] [address] Glucose [Mass/Vol] 331 mg/dL High 70-110 [facility] Comment on above: Performed By: #### T AVILA MALIK, AIDA, PBNP, CBC, ANEU, ADIFF, GFR #### [address] [address] Potassium [Moles/Vol] 4.6 mmol/L Normal 3.5-5.0 [facility] Comment on above: Performed By: #### T AVILA MALIK, AIDA, PBNP, CBC, ANEU, ADIFF, GFR #### [address] [address] Sodium [Moles/Vol] 140 mmol/L Normal 136-145 [facility] Comment on above: Performed By: #### T AVILA MALIK, CMP, PBNP, CBC, ANEU, ADIFF, GFR #### [facility] [address] [place] [address] Total Protein 7.2 G/dL Normal 5.7-8.2 [facility] Comment on above: Result Comment: No te - New Reference Range in effect 20 Performed By: #### T AVILA MALIK, CMP, PBNP, CBC, ANEU, ADIFF, GFR #### [facility] [address] [place] [address] Urea nitrogen [Mass/Vol] 12.0 mg/dL Normal 8.0-22.0 [facility] Comment on above: Performed By: #### T AVILA MALIK, CMP, PBNP, CBC, ANEU, ADIFF, GFR #### [address] [address] LABORATORYOrdered By: SYSTEM SYSTEM on 04-06-2024 Troponin I.cardiac DL <= 0.01 ng/mL [Mass/Vol] 20 ng/L Normal 0 - 54 ng/L ADM SS Comment on above: Interpretive Data: High Sensitive Troponin I Reference Ranges: Female: 0-34 ng/L Male: 0-54 ng/L Testing performed on [employer] analyzer using direct chemiluminescent technology. Albumin BCP dye [Mass/Vol] 3.9 G/dL Normal 3.2 - 4.8 G/dL ADM SS Albumin/Globulin [Mass ratio] 1.2 {ratio} Normal 0.9 - 1.6 ratio ADM SS ALP [Catalytic activity/Vol] 79 U/L Normal 38 - 126 U/L ADM SS ALT No additional P-5'-P [Catalytic activity/Vol] 29 U/L Normal 12 - 55 U/L ADM SS AST [Catalytic activity/Vol] 32 U/L Normal 8 - 34 U/L ADM SS Basophils (Bld) [#/Vol] 0.1 103/mcL Normal 0.0 - 0.3 10^3/mcL Workflow SS Basophils/100 WBC (Bld) 0.9 % Normal 0.0 - 2.5 % AH Workflow SS Bilirubin [Mass/Vol] 1.20 mg/dL Normal [...] above: Interpretive Data: T esting performed on [employer] analyzer using enzymatic creatinine methodology. Electrolyte Balance [...] 44.2 % Normal 40.0 - 52.0 % AH Workflow SS Hemoglobin (Bld) [Mass/Vol] 14.8 G/dL Normal 13.0 - 17.5 G/dL AH Workflow SS Lymphocytes (Bld) [#/Vol] 1.8 103/mcL Normal 0.9 - 4.3 10^3/mcL AH Workflow SS Lymphocytes/100 WBC (Bld) 20.4 % Normal 20.0 - 40.0 % AH Workflow SS MCH (RBC) [Entitic mass] 32.1 pg Normal 27.0 - 33.0 pg AH Workflow SS MCHC 33.6 G/dL Normal 32.0 [...] 69.8 % Normal 50.0 - 75.0 % Workflow SS Platelet mean volume (Bld) [Entitic vol] 8.3 fL Normal 6.4 - 10.5 fL AH Workflow SS Platelets (Bld) [#/Vol] 185 103/mcL Normal 150 - 450 10^3/mcL Workflow SS Potassium [Moles/Vol] 4.6 mmol/L Normal [...] ng/L Male: 0-54 ng/L Testing performed on [employer] analyzer using direct chemiluminescent technology. Urea nitrogen [Mass/Vol] 12.0 mg/dL Normal 8.0 - 22.0 mg/dL ADM SS Urea nitrogen/Creatinine [Mass ratio] 15.6 ratio Normal 10.0 - 22.0 ratio ADM SS WBC (Bld) [#/Vol] 9.0 103/mcL Normal 4.5 - 10.8 10^3/mcL Workflow SS PBNPon 04-06-2024 Natriuretic peptide B (Bld) [Mass/Vol] 81 pg/mL Normal 0-450 [facility] Comment on above: Performed By: #### T AVILA MALIK, CMP, PBNP, CBC, ANEU, ADIFF, GFR #### [place] [id number] TROPHSon 04-06-2024 High Sensitivity Troponin I 20 ng/L Normal 0-54 [facility] Comment on above: Result Comment: High Sensitive Troponin I Reference Ranges: Female: 0-34 ng/L Male: 0-54 ng/L Testing performed on [facility] IM analyzer using direct chemiluminescent technology. Performed By: #### Tal MALIK #### [place] [address] High Sensitivity Troponin I 20 ng/L Normal 0-54 [facility] Comment on above: Result Comment: High Sensitive Troponin I Reference Ranges: Female: 0-34 ng/L Male: 0-54 ng/L Testing performed on [employer] IM analyzer using direct chemiluminescent technology. Performed By: #### AVILA HOLLAND, CMP, PBNP, CBC, ANEU, ADIFF, GFR #### [place] [address] XR CHEST 1 VIEWon 04-06-2024 XR CHEST [...] 04/06/2024 5:08:54 AM Ordering Provider: ROSCOE Eastman [facility] .Auto Diffon 03-29-2024 Basophil, Absolute 0.1 10 3/mcL Normal 0.0-0.3 [facility] Comment on above: Performed By: #### Tal MALIK #### [place] [address] Basophils/100 WBC (Bld) 1.1 % Normal 0.0-2.5 [facility] Comment on above: Performed By: #### T KING #### [address] [address] Eosinophil, Absolute 0.1 10 3/mcL Normal 0.0-0.7 [facility] Comment on above: Performed By: #### T KING #### [address] [address] Eosinophils/100 WBC (Bld) 1.5 % Normal 0.0-6.0 [facility] Comment on above: Performed By: #### T KING #### [address] [address] Lymphocyte, Absolute 2.1 10 3/mcL Normal 0.9-4.3 [facility] Comment on above: Performed By: #### T KING #### [address] [address] Lymphocytes/100 WBC (Bld) 25.4 % Normal 20.0-40.0 [facility] Comment on above: Performed By: #### T KING #### [address] [address] Monocyte, Absolute 0.8 10 3/mcL Normal 0.1-1.4 [facility] Comment on above: Performed By: #### T KING #### [address] [address] Monocytes/100 WBC (Bld) 10.0 % Normal 2.0-13.0 [facility] Comment on above: Performed By: #### T KING #### [address] [address] Neutrophils/100 WBC (Bld) 62.0 % Normal 50.0-75.0 [facility] Comment on above: Performed By: #### T KING #### [address] [address] .GFRon 03-29-2024 GFR >60 Normal [facility] Comment on above: Result Comment: [...] meters Performed By: #### T KING #### [address] [address] GFR Non- >60 Normal [facility] Comment on above: Result Comment: GFR [...] meters Performed By: #### T KING #### [address] [address] .MDWon 03-29-2024 Monocyte Distribution Width 16.69 Normal 0.00-20.00 [facility] Comment on above: Result Comment: For ED adult patients suspected of sepsis, MDW<=20.0 does not rule out sepsis or risk of sepsis Performed By: #### T KING #### [address] [address] .NEUABSon 03-29-2024 Neutrophil, Absolute 5.2 10 3/mcL Normal 2.3-8.1 [facility] Comment on above: Performed By: #### T KING #### [address] [address] BUPRENORPHINE SCREEN TO CONF IRM,URINEon 03-29-2024 Buprenorphine Screen Ql (U) Negative Normal Cutoff 5 [facility] Comment on above: Result Comment: Presumptive Negative by immunoassay. Testing by mass spectrometry is available on request. Performed By: #### B UPRS #### [facility] ([facility]) ([id number]) [address] [place] [id number] Drug screen comment (U) [Interp] See Note Normal [facility] Comment on above: Result Comment: INTE [...] not valid for forensic use. Performed By: [employer] [address] [place] [address] [employer] Pain[employer] Helper: Luz Maria Donato MD, PhD CLIA Number: [id number] Performed By: #### B UPRS #### [facility] ([facility]) ([id number]) [address] [place] [address] CBCon 03-29-2024 Erythrocyte distribution width (RBC) [Ratio] 13.7 % Normal 11.5-15.5 [facility] Comment on above: Performed By: #### T ROPHS #### [address] [address] Hematocrit (Bld) [Volume fraction] 42.1 % Normal 40.0-52.0 [facility] Comment on above: Performed By: #### T ROPHS #### [address] [address] Hgb 14.4 G/dL Normal 13.0-17.5 [facility] Comment on above: Performed By: #### T KING #### [place] [address] MCH (RBC) [Entitic mass] 32.3 pg Normal 27.0-33.0 [facility] Comment on above: Performed By: #### T KING #### [place] [address] MCHC 34.1 G/dL Normal 32.0-36.0 [facility] Comment on above: Performed By: #### T KING #### [place] [address] MCV (RBC) [Entitic vol] 94.6 fL Normal 81.0-100.0 [facility] Comment on above: Performed By: #### T KING #### [place] [address] Platelet 174 10 3/mcL Normal 150-450 [facility] Comment on above: Performed By: #### T KING #### [place] [address] Platelet mean volume (Bld) [Entitic vol] 8.1 fL Normal 6.4-10.5 [facility] Comment on above: Performed By: #### T KING #### [place] [address] RBC 4.45 10 6/mcL Low 4.50-6.00 [facility] Comment on above: Performed By: #### T KING #### [place] [address] WBC 8.4 10 3/mcL Normal 4.5-10.8 [facility] Comment on above: Performed By: #### T KING #### [place] [address] CMPon 03-29-2024 Albumin Level 4.0 G/dL Normal 3.2-4.8 [facility] Comment on above: Performed By: #### T KING #### [place] [address] Albumin/Globulin [Mass ratio] 1.2 {ratio} Normal 0.9-1.6 [facility] Comment on above: Performed By: #### T KING #### [address] [address] ALP [Catalytic activity/Vol] 94 U/L Normal 38-126 [facility] Comment on above: Performed By: #### T KING #### [address] [address] ALT [Catalytic activity/Vol] 38 U/L Normal 12-55 [facility] Comment on above: Performed By: #### T KING #### [address] [address] AST [Catalytic activity/Vol] 57 U/L High 8-34 [facility] Comment on above: Performed By: #### T KING #### [address] [address] Bili Total 1.10 mg/dL Normal 0.20-1.20 [facility] Comment on above: Result Comment: Use of this assay is not recommended for patients undergoing treatment with eltrombopag due to the potential for falsely elevated results. Performed By: #### T KING #### [place] [id number] BUN/Creatinine Ratio 21.3 ratio Normal 10.0-22.0 [facility] Comment on above: Performed By: #### T KING #### [address] [address] Calcium [Mass/Vol] 9.7 mg/dL Normal 8.7-10.4 [facility] Comment on above: Performed By: #### T KING #### [address] [address] Chloride [Moles/Vol] 105 mmol/L Normal 98-110 [facility] Comment on above: Performed By: #### T KING #### [address] [address] CO2 [Moles/Vol] 27 mmol/L Normal 22-32 [facility] Comment on above: Performed By: #### T KING #### [address] [address] Creatinine [Mass/Vol] 0.75 mg/dL Normal 0.60-1.40 [facility] Comment on above: Result Comment: Test ing performed on [employer] analyzer using enzymatic creatinine methodology. Performed By: #### T KING #### [place] [id number] Electrolyte Balance 9.0 mEq/L Normal 4.0-15.0 [facility] Comment on above: Performed By: #### T KING #### [place] [id number] Globulin 3.3 G/dL Normal 1.5-3.8 [facility] Comment on above: Performed By: #### T KING #### [place] [id number] Glucose [Mass/Vol] 148 mg/dL High 70-110 [facility] Comment on above: Performed By: #### T KING #### [place] [id number] Potassium [Moles/Vol] 3.7 mmol/L Normal 3.5-5.0 [facility] Comment on above: Performed By: #### T KING #### [place] [id number] Sodium [Moles/Vol] 141 mmol/L Normal 136-145 [facility] Comment on above: Performed By: #### T KING #### [place] [id number] Total Protein 7.3 G/dL Normal 5.7-8.2 [facility] Comment on above: Result Comment: No te - New Reference Range in effect 20 Performed By: #### T KING #### [place] [id number] Urea nitrogen [Mass/Vol] 16.0 mg/dL Normal 8.0-22.0 [facility] Comment on above: Performed By: #### T KING #### [place] [id number] DRUG SCREEN,URINEon 09-19-20 24 Amphetamines Screen Ql (U) Negative Normal Presumptive Negative [facility] Comment on above: Order Comment: Drug screen results are presumptive and should not be used to assess compliance with prescribed medication. Contact the performing [facility] laboratory to add-on definitive confirmatory testing if [...] pseudoephedrine, and propranolol. Performed By: #### Kate RUG3 #### GALINDO Mustafa ([id number]) [facility] ([facility]) [address] [place] [id number] Barbiturates Screen Ql (U) Negative Normal Presumptive Negative [facility] Comment on above: Order Comment: Drug screen results are presumptive and should not be used to assess compliance with prescribed medication. Contact the performing [facility] laboratory to add-on definitive confirmatory testing if [...] By: #### D RUG3 #### GALINDO Mustafa ([id number]) [facility] ([address] [address] Benzodiazepines Ql (U) Negative Normal Presumptive Negative [facility] Comment on above: Order Comment: Drug screen results are presumptive and should not be used to assess compliance with prescribed medication. Contact the performing [facility] laboratory to add-on definitive confirmatory testing if [...] By: #### D RUG3 #### GALINDO Mustafa ([id number]) [facility] ([facility]) [address] [place] [id number] Benzoylecgonine Screen Ql (U) Positive Abnormal Presumptive Negative [facility] Comment on above: Order Comment: Drug screen results are presumptive and should not be used to assess compliance with prescribed medication. Contact the performing [facility] laboratory to add-on definitive confirmatory testing if [...] By: #### D RUG3 #### GALINDO Mustafa ([id number]) [facility] ([facility]) [address] [place] [id number] Cannabinoids Screen Ql (U) Negative Normal Presumptive Negative [facility] Comment on above: Order Comment: Drug screen results are presumptive and should not be used to assess compliance with prescribed medication. Contact the performing [facility] laboratory to add-on definitive confirmatory testing if [...] By: #### D RUG3 #### GALINDO Mustafa ([id number]) [facility] ([facility]) [address] [place] [address] fentaNYL+Norfentanyl Screen Ql (U) Negative Normal Presumptive Negative [facility] Comment on above: Order Comment: Drug screen results are presumptive and should not be used to assess compliance with prescribed medication. Contact the performing [facility] laboratory to add-on definitive confirmatory testing if [...] By: #### D RUG3 #### GALINDO Mustafa ([id number]) [facility] ([facility]) [address] [place] [address]231 Methadone Screen Ql (U) Negative Normal Presumptive Negative [facility] Comment on above: Order Comment: Drug screen results are presumptive and should not be used to assess compliance with prescribed medication. Contact the performing [facility] laboratory to add-on definitive confirmatory testing if [...] CUTO FF LEVEL: 150 NG/ML The metabolite K-nysrn-wjerfvaqtcpffn (LAAM) is not detected by this method in concentrations that would be found in the urine of patients on LAAM therapy. Performed By: #### D RUG3 #### GALINDO Mustafa ([id number]) [facility] ([facility]) [address] [place], [place] [phone] Opiates Screen Ql (U) Negative Normal Presumptive Negative [facility] Comment on above: Order Comment: Drug screen results are presumptive and should not be used to assess compliance with prescribed medication. Contact the performing [facility] laboratory to add-on definitive confirmatory testing if [...] Oxycodone Screen, Urine result). Performed By: #### D RUG3 #### GALINDO Mustafa ([id number]) [facility] ([facility]) [address] [place], [place] [phone] oxyCODONE+oxyMORphon e Screen Ql (U) Negative Normal Presumptive Negative [facility] Comment on above: Order Comment: Drug screen results are presumptive and should not be used to assess compliance with prescribed medication. Contact the performing [facility] laboratory to add-on definitive confirmatory testing if [...] oxycodone and oxymorphone. Performed By: #### Kate PINA3 #### GALINDO Mustafa ([id number]) [facility] ([facility]) [address] [place] [address]3449 Phencyclidine Ql (U) Negative Normal Presump tive Negative [facility] Comment on above: Order Comment: Drug screen results are presumptive and should not be used to assess compliance with prescribed medication. Contact the performing [facility] laboratory to add-on definitive confirmatory testing if [...] By: #### D RUG3 #### GALINDO Mustafa ([id number]) [facility] ([facility]) [address] [place] [address]87 Gabapentinon 03-29-2024 Gabapentin (U) [Mass/Vol] <5.0 Normal [facility] Comment on above: Result Comment: INTE [...] developed and its performance characteristics determined by [employer]. It has not been cleared or approved by the [place] Food and Drug Administration. This test was performed in a CLIA certified laboratory and is intended for clinical purposes. Performed By: [employer] [address] [place] [address] Automotive Painter Helper: Luz Maria Donato MD, PhD CLIA Number: [id number] Performed By: #### 5 9680-9 #### [facility] ([id number]) [address] [place], [place] [id number] LABORATORYOrdered By: SYSTEM SYSTEM on 03-29-2024 Troponin I.cardiac DL <= 0.01 ng/mL [Mass/Vol] 16 ng/L Normal 0 - 54 ng/L ADM SS Comment on above: Interpretive Data: High Sensitive Troponin I Reference Ranges: Female: 0-34 ng/L Male: 0-54 ng/L Testing performed on [employer] analyzer using direct chemiluminescent technology. Albumin BCP dye [Mass/Vol] 4.0 G/dL Normal 3.2 - 4.8 G/dL ADM SS Albumin/Globulin [Mass ratio] 1.2 {ratio} Normal 0.9 - 1.6 ratio ADM SS ALP [Catalytic activity/Vol] 94 U/L Normal 38 - 126 U/L ADM SS ALT No additional P-5'-P [Catalytic activity/Vol] 38 U/L Normal 12 - 55 U/L ADM SS AST [Catalytic activity/Vol] 57 U/L High 8 - 34 U/L ADM SS Basophils (Bld) [#/Vol] 0.1 103/mcL Normal 0.0 - 0.3 10^3/mcL Workflow SS Basophils/100 WBC (Bld) 1.1 % [...] above: Interpretive Data: T esting performed on [employer] analyzer using enzymatic creatinine methodology. Electrolyte Balance [...] 42.1 % Normal 40.0 - 52.0 % AH Workflow SS Hemoglobin (Bld) [Mass/Vol] 14.4 G/dL Normal 13.0 - 17.5 G/dL AH Workflow SS Lymphocytes (Bld) [#/Vol] 2.1 103/mcL Normal 0.9 - 4.3 10^3/mcL AH Workflow SS Lymphocytes/100 WBC (Bld) 25.4 % Normal 20.0 - 40.0 % AH Workflow SS MCH (RBC) [Entitic mass] 32.3 pg Normal 27.0 - 33.0 pg AH Workflow SS MCHC 34.1 G/dL Normal 32.0 - 36.0 G/dL AH Workflow SS MCV (RBC) [Entitic vol] 94.6 fL Normal 81.0 - 100.0 fL AH Workflow SS Monocyte distribution width Auto (Bld) [Entitic vol] 16.69 1 Normal 0.00 - 20.00 AH Workflow [...] 62.0 % Normal 50.0 - 75.0 % Workflow SS Platelet mean volume (Bld) [Entitic vol] 8.1 fL Normal 6.4 - 10.5 fL Workflow SS Platelets (Bld) [#/Vol] 174 103/mcL Normal 150 - 450 10^3/mcL Workflow SS Potassium [Moles/Vol] 3.7 mmol/L Normal [...] ng/L Male: 0-54 ng/L Testing performed on [employer] IM analyzer using direct chemiluminescent technology. Urea nitrogen [Mass/Vol] 16.0 mg/dL Normal 8.0 - 22.0 mg/dL ADM SS Urea nitrogen/Creatinine [Mass ratio] 21.3 ratio Normal 10.0 - 22.0 ratio ADM SS WBC (Bld) [#/Vol] 8.4 103/mcL Normal 4.5 - 10.8 10^3/mcL Workflow SS PBNPon 03-29-2024 Natriuretic peptide B (Bld) [Mass/Vol] 110 pg/mL Normal 0-450 [facility] Comment on above: Performed By: #### T [facility] #### [address] 03-29-2024 High Sensitivity Troponin I 16 ng/L Normal 0-54 [facility] Comment on above: Result Comment: High Sensitive Troponin I Reference Ranges: Female: 0-34 ng/L Male: 0-54 ng/L Testing performed on [employer] IM analyzer using direct chemiluminescent technology. Performed By: #### T KING #### [facility] [address] [place] [address] High Sensitivity Troponin I 18 ng/L Normal 0-54 [facility] Comment on above: Result Comment: High Sensitive Troponin I Reference Ranges: Female: 0-34 ng/L Male: 0-54 ng/L Testing performed on [facility] using direct chemiluminescent technology. Performed By: #### T KING #### [address] [address] XR CHEST 1 VIEWon 03-29-2024 XR CHEST [...] Date: 03/29/2024 3:32:53 AM Ordering Provider: ROSCOE Eastman [facility] Basic metabolic 2000 panelon 02-10-2024 Anion gap [Moles/Vol] 3 mmol/L Low 5-16 [facility] Comment on above: Order Comment: Speci men Type: BLOOD SPECIMENOrdering Facility: [facility] Address: [address] [place] [address] Performed By: #### 2 4321-2 ####[facility]ORYCLIA [id number] [place] [address] [place] Calcium [Mass/Vol] 8.4 mg/dL Low 8.5-10.5 [facility] Comment on above: Order Comment: Speci men Type: BLOOD SPECIMENOrdering Facility: [facility] Address: [address] [place] [address] Performed By: #### 2 4321-2 ####[facility] LABORATORYCLIA [id number] [place] [id number] [place] Chloride [Moles/Vol] 106 mmol/L Normal 98-107 [facility] Comment on above: Order Comment: Speci men Type: BLOOD SPECIMENOrdering Facility: [facility] Address: [address] [place] [address] Performed By: #### 2 4321-2 ####[facility] LABORATORYCLIA [id number] [place] [address] [place] CO2 [Moles/Vol] 32 mmol/L Normal 21-32 [facility] Comment on above: Order Comment: Speci men Type: BLOOD SPECIMENOrdering Facility: [facility] Address: [address] [place] [address] Performed By: #### 2 4321-2 ####[facility] LABORATORYCLIA [id number] [place] [address] [place] Creatinine [Mass/Vol] 0.56 mg/dL Normal 0.50-1.40 [facility] Comment on above: Order Comment: Speci men Type: BLOOD SPECIMENOrdering Facility: [facility] Address: [address] [place] [address] Result Comment: Desiree ents receiving either N-Acetylcysteine (NAC) or Metamizole prior to venipuncture, may have falsely depressed results. Performed By: #### 2 4321-2 ####[facility] LABORATORYCLIA [id number] [place] [address] [place] Creatinine and Glomerular filtration rate.predicted panel (S/P/Bld) 125 mL/min/1.73m??? Normal >=60 [facility] Comment on above: Order Comment: Speci men Type: BLOOD SPECIMENOrdering Facility: [facility] Address: [address] [place] [address] Result Comment: Rosanna mated Glomerular Filtration Rate [...] actual GFR. Performed By: #### 2 4321-2 ####[facility] LABORATORYCLIA [id number] [place] [address] [place] Glucose [Mass/Vol] 233 mg/dL High 70-100 [facility] Comment on above: Order Comment: Speci men Type: BLOOD SPECIMENOrdering Facility: [facility] Address: [address] [place] [address] Result Comment: The [place] Diabetes Association (ADA) provides guidance for cutoff [...] Standards of Medical Care in Diabetes 2016, [place] Diabetes Association. Diabetes Care. 2016.39(Suppl 1). Results may be falsely elevated after the administration of Sulfapyridine. Results may be falsely depressed after the administration of Sulfasalazine. Performed By: #### 2 4321-2 ####[facility] LABORATORYCLIA [id number] [place] [address] [place] Potassium [Moles/Vol] 3.3 mmol/L Low 3.5-5.1 [facility] Comment on above: Order Comment: Delfinai men Type: BLOOD SPECIMENOrdering Facility: [facility] Address: [address] [place] [id number] Performed By: #### 2 4321-2 ####[facility] LABORATORYCLIA [id number] [place] [id number] [place] Sodium [Moles/Vol] 141 mmol/L Normal 136-145 [facility] Comment on above: Order Comment: Speci men Type: BLOOD SPECIMENOrdering Facility: [facility] Address: [address] [place], [place] [address] Performed By: #### 2 4321-2 ####[facility] LABORATORYCLIA [id number] [place] [id number] [place] Urea nitrogen [Mass/Vol] 11 mg/dL Normal 7-26 [facility] Comment on above: Order Comment: Speci men Type: BLOOD SPECIMENOrdering Facility: [facility] Address: [address] [place] [address] Performed By: #### 2 4321-2 ####[facility] LABORATORYCLIA [id number] [place] [id number] [facility] [place] CNDSon 02-10-2024 CNDS HNO ID: [id number] Author: LUZ MARIA DECKER DO Service: Hospital [...] Your Medications These medications were sent to [facility] [employer] [place] [address] Hours: Tuesday-Tuesday 7am-7pm, Tuesday 9am-1pm lactulose 20 gram/30 mL solution levothyroxine 175 mcg tablet FUTURE APPOINTMENTS: No future appointments. PATIENT CONDITION AT DISCHARGE: Stable DISCHARGE DISPOSITION: Home DISCHARGE TIME: 33 minutes SIGNATURE: Luz Maria Decker DATE: February 10, 2024 TIME: 2:30 PM [facility] NUTRITIONon 02-10-2024 NUTRITION HNO ID: [id number] Author: EMMETT [address] Service: ? Author [...] Weight Type: Admit weight Estimated kilocalorie needs: [id number] Calorie Calculation Method: [place] (with activity factor) (1.1-1.3) Estimated protein needs [...] February 10, 2024 TIME: 10:00 AM Normal [facility] Basic metabolic 2000 panelon 02-09-2024 Anion gap [Moles/Vol] 8 mmol/L Normal 11-23 [facility] Comment on above: Order Comment: Speci men Type: BLOOD SPECIMEN [facility] Address: [address] [place], [place] [address] Performed By: #### [place], [address]-9, 28249-8 #### [facility] CLIA [id number] [address] [place] [address] [place] Calcium [Mass/Vol] 8.4 mg/dL Low 8.5-10.5 [facility] Comment on above: Order Comment: Speci men Type: BLOOD SPECIMEN [facility] Address: [address] [place], [place] [address] Performed By: #### B HB, , #### [facility] CLIA [id number] [address] [place], [place] [address] [place] Chloride [Moles/Vol] 106 mmol/L Normal 98-107 [facility] Comment on above: Order Comment: Speci men Type: BLOOD SPECIMEN [facility] Address: [address] [place] [address] Performed By: #### B HB, , #### [facility] CLIA [id number] [address] [place] [address] [place] CO2 [Moles/Vol] 26 mmol/L Normal 21-32 [facility] Comment on above: Order Comment: Speci men Type: BLOOD SPECIMEN [facility] Address: [address] [place] [address] Performed By: #### B HB, , #### [facility] CLIA [id number] [address] [place] [address] [place] Creatinine [Mass/Vol] 0.63 mg/dL Normal 0.50-1.40 [facility] Comment on above: Order Comment: Speci men Type: BLOOD SPECIMEN [facility] Address: [address] [place] [address] Result Comment: Desiree ents receiving either N-Acetylcysteine (NAC) or Metamizole prior to venipuncture, may have falsely depressed results. Performed By: #### B HB, , #### [facility] CLIA [id number] [address] [place] [address] Creatinine and Glomerular filtration rate.predicted panel (S/P/Bld) 120 mL/min/1.73m??? Normal >=60 [facility] Comment on above: Order Comment: Delfinai men Type: BLOOD SPECIMEN [facility] Address: [address] [place] [address] Result Comment: Rosanna mated Glomerular Filtration Rate [...] Performed By: #### B HB, , #### [facility] CLIA [id number] [address] [place] [address] [place] Glucose [Mass/Vol] 292 mg/dL High 70-100 [facility] Comment on above: Order Comment: Moses burton Type: BLOOD SPECIMEN [facility] Address: [address] [place] [address] Result Comment: The [place] Diabetes Association (ADA) provides guidance for cutoff [...] Standards of Medical Care in Diabetes 2016, [place] Diabetes Association. Diabetes Care. 2016.39(Suppl 1). Results may be falsely elevated after the administration of Sulfapyridine. Results may be falsely depressed after the administration of Sulfasalazine. Performed By: #### B HB, , #### [facility] CLIA [id number] [address] [place] [address] [place] Potassium [Moles/Vol] 3.4 mmol/L Low 3.5-5.1 [facility] Comment on above: Order Comment: Moses burton Type: BLOOD SPECIMEN [facility] Address: [address] [place] [address] Performed By: #### B HB, , #### [facility] CLIA [id number] [address] [place] [address] [place] Sodium [Moles/Vol] 140 mmol/L Normal 136-145 [facility] Comment on above: Order Comment: Moses burton Type: BLOOD SPECIMEN [facility] Address: [address] [place] [address] Performed By: #### B HB, , 93073-7 #### [facility] CLIA [id number] [address] [place], [place] [address] [place] Urea nitrogen [Mass/Vol] 10 mg/dL Normal 7-26 [facility] Comment on above: Order Comment: Speci men Type: BLOOD SPECIMEN [facility] Address: [address] [place] [address] Performed By: #### B HB, , #### [facility] CLIA [id number] [address] [place], [place] [address] [place] Anion gap [Moles/Vol] 7 mmol/L Normal 5-16 [facility] Comment on above: Order Comment: Speci men Type: BLOOD SPECIMEN [facility] Address: [address] [place] [address] Performed By: #### B HB, , #### [facility] CLIA [id number] [address] [place], [place] [address] [place] Calcium [Mass/Vol] 8.3 mg/dL Low 8.5-10.5 [facility] Comment on above: Order Comment: Speci men Type: BLOOD SPECIMEN [facility] Address: [facility] [place] [address] Performed By: #### B HB, , #### [facility] CLIA [id number] [address] [place], [place] [address] [place] Chloride [Moles/Vol] 106 mmol/L Normal 98-107 [facility] Comment on above: Order Comment: Speci men Type: BLOOD SPECIMEN [facility] Address: [address] [place] [address] [place] [address] Performed By: #### B HB, , 37728-6 #### [facility] CLIA [id number] [address] [place], [place] [address] [place] CO2 [Moles/Vol] 28 mmol/L Normal 21-32 [facility] Comment on above: Order Comment: Moses burton Type: BLOOD SPECIMEN [facility] Address: [address] [place] [address] Performed By: #### B HB, , #### [facility] CLIA [id number] [address] [place] [address] [place] Creatinine [Mass/Vol] 0.65 mg/dL Normal 0.50-1.40 [facility] Comment on above: Order Comment: Moses burton Type: BLOOD SPECIMEN [facility] Address: [address] [place] [address] Result Comment: Desiree ents receiving either N-Acetylcysteine (NAC) or Metamizole prior to venipuncture, may have falsely depressed results. Performed By: #### B KATEY, , #### [facility] CLIA [id number] [address] [place] [address] Creatinine and Glomerular filtration rate.predicted panel (S/P/Bld) 119 mL/min/1.73m??? Normal >=60 [facility] Comment on above: Order Comment: Moses burton Type: BLOOD SPECIMEN [facility] Address: [address] [place] [address] Result Comment: Rosanna mated Glomerular Filtration Rate [...] Performed By: #### B HB, , #### [facility] CLIA [id number] [address] [place] [address] [place] Glucose [Mass/Vol] 324 mg/dL High 70-100 [facility] Comment on above: Order Comment: Moses burton Type: BLOOD SPECIMEN [facility] Address: [address] [place] [address] Result Comment: The [place] Diabetes Association (ADA) provides guidance for cutoff [...] Standards of Medical Care in Diabetes 2016, [place] Diabetes Association. Diabetes Care. 2016.39(Suppl 1). Results may be falsely elevated after the administration of Sulfapyridine. Results may be falsely depressed after the administration of Sulfasalazine. Performed By: #### B HB, , #### [facility] CLIA [id number] [address] [place] [address] [place] Potassium [Moles/Vol] 3.8 mmol/L Normal 3.5-5.1 [facility] Comment on above: Order Comment: Speci men Type: BLOOD SPECIMEN [facility] Address: [address] [place] [address] Performed By: #### B HB, , #### [facility] CLIA [id number] [address] [place] [address] [place] Sodium [Moles/Vol] 141 mmol/L Normal 136-145 [facility] Comment on above: Order Comment: Speci men Type: BLOOD SPECIMEN [facility] Address: [address] [place] [address] Performed By: #### B HB, , #### [facility] CLIA [id number] [address] [place], [place] [address] [place] Urea nitrogen [Mass/Vol] 10 mg/dL Normal 7-26 [facility] Comment on above: Order Comment: Speci men Type: BLOOD SPECIMEN [facility] Address: [address] [place], [place] [address] Performed By: #### Yvonne HB, , #### [facility] CLIA [id number] [address] [place], [place] [address] [place] Anion gap [Moles/Vol] 6 mmol/L Normal 5-16 [facility] Comment on above: Order Comment: Speci men Type: BLOOD SPECIMEN [facility] Address: [address] [place] [address] Performed By: #### B HB, , #### [facility] CLIA [id number] [address] [place] [address] [place] Calcium [Mass/Vol] 8.1 mg/dL Low 8.5-10.5 [facility] Comment on above: Order Comment: Speci men Type: BLOOD SPECIMEN [facility] Address: [address] [place] [address] Performed By: #### Yvonne HB, , #### [facility] CLIA [id number] [address] [place] [address] [place] Chloride [Moles/Vol] 105 mmol/L Normal 98-107 [facility] Comment on above: Order Comment: Speci men Type: BLOOD SPECIMEN [facility] Address: [address] [place] [address] Performed By: #### Yvonne HB, , #### [facility] CLIA [id number] [address] [place] [address] [place] CO2 [Moles/Vol] 30 mmol/L Normal 21-32 [facility] Comment on above: Order Comment: Speci men Type: BLOOD SPECIMEN [facility] Address: [address] [place] [address] Performed By: #### B HB, , #### [facility] CLIA [id number] [address] [place] [address] [place] Creatinine [Mass/Vol] 0.66 mg/dL Normal 0.50-1.40 [facility] Comment on above: Order Comment: Moses burton Type: BLOOD SPECIMEN [facility] Address: [address] [place] [address] Result Comment: Desiree ents receiving either N-Acetylcysteine (NAC) or Metamizole prior to venipuncture, may have falsely depressed results. Performed By: #### B HB, , #### [facility] CLIA [id number] [address] [place] [address] Creatinine and Glomerular filtration rate.predicted panel (S/P/Bld) 119 mL/min/1.73m??? Normal >=60 [facility] Comment on above: Order Comment: Moses burton Type: BLOOD SPECIMEN [facility] Address: [address] [place] [address] Result Comment: Rosanna mated Glomerular Filtration Rate [...] Performed By: #### B HB, , #### [facility] CLIA [id number] [address] [place] [address] [place] Glucose [Mass/Vol] 263 mg/dL High 70-100 [facility] Comment on above: Order Comment: Moses burton Type: BLOOD SPECIMEN [facility] Address: [address] [place] [address] Result Comment: The [place] Diabetes Association (ADA) provides guidance for cutoff [...] Standards of Medical Care in Diabetes 2016, [place] Diabetes Association. Diabetes Care. 2016.39(Suppl 1). Results may be falsely elevated after the administration of Sulfapyridine. Results may be falsely depressed after the administration of Sulfasalazine. Performed By: #### B HB, , #### [facility] CLIA [id number] [address] [place] [address] [place] Potassium [Moles/Vol] 3.4 mmol/L Low 3.5-5.1 [facility] Comment on above: Order Comment: Moses burton Type: BLOOD SPECIMEN [facility] Address: [address] [place] [address] Performed By: #### B HB, , #### [facility] CLIA [id number] [address] [place] [address] [place] Sodium [Moles/Vol] 141 mmol/L Normal 136-145 [facility] Comment on above: Order Comment: Moses burton Type: BLOOD SPECIMEN Ordering Facility: [facility] Address: [address] [place] [address] Performed By: #### B HB, , #### [facility] CLIA [id number] [address] [place], [place] [address] [place] Urea nitrogen [Mass/Vol] 10 mg/dL Normal 7-26 [facility] Comment on above: Order Comment: Moses burton Type: BLOOD SPECIMEN Ordering Facility: [facility] Address: [address] [place] [address] Performed By: #### B HB, , #### [facility] CLIA [id number] [address] [place], [place] [address] [place] Basic metabolic 2000 panelon 02-08-2024 Anion gap [Moles/Vol] 6 mmol/L Normal 5-16 [facility] Comment on above: Order Comment: Speci men Type: BLOOD SPECIMEN Ordering Facility: [facility] Address: [address] [place] [address] Performed By: #### B HB, , 15668-6 #### [facility] CLIA [id number] [address] [place], [place] [address] [place] Calcium [Mass/Vol] 8.5 mg/dL Normal 8.5-10.5 [facility] Comment on above: Order Comment: Speci men Type: BLOOD SPECIMEN Ordering Facility: [facility] Address: [address] [place] [address] Performed By: #### B HB, , 76793-8 #### [facility] CLIA [id number] [address] [place] [address] [place] Chloride [Moles/Vol] 107 mmol/L Normal 98-107 [facility] Comment on above: Order Comment: Speci men Type: BLOOD SPECIMEN Ordering Facility: [facility] Address: [address] [place] [address] Performed By: #### B HB, , 98875-0 #### [facility] CLIA [id number] [address] [place], [place] [address] [place] CO2 [Moles/Vol] 30 mmol/L Normal 21-32 [facility] Comment on above: Order Comment: Speci men Type: BLOOD SPECIMEN Ordering Facility: [facility] Address: [address] [place] [address] Performed By: #### B HB, , 06740-6 #### [facility] CLIA [id number] [address] [place], [place] [address] [place] Creatinine [Mass/Vol] 0.73 mg/dL Normal 0.50-1.40 [facility] Comment on above: Order Comment: Speci men Type: BLOOD SPECIMEN Ordering Facility: [facility] Address: [address] [place], [place] [address] Result Comment: Desiree ents receiving either N-Acetylcysteine (NAC) or Metamizole prior to venipuncture, may have falsely depressed results. Performed By: #### B HB, , #### [facility] CLIA [id number] [address] [place] [address] [place] Creatinine and Glomerular filtration rate.predicted panel (S/P/Bld) 115 mL/min/1.73m??? Normal >=60 [facility] Comment on above: Order Comment: Moses burton Type: BLOOD SPECIMEN Ordering Facility: [facility] Address: [address] [place] [address] Result Comment: Rosanna mated Glomerular Filtration Rate [...] Performed By: #### B HB, , #### [facility] CLIA [id number] [address] [place] [address] [place] Glucose [Mass/Vol] 172 mg/dL High 70-100 [facility] Comment on above: Order Comment: Moses burton Type: BLOOD SPECIMEN Ordering Facility: [facility] Address: [address] [id number] Result Comment: The [place] [employer] Association (ADA) provides guidance for cutoff [...] Standards of Medical Care in Diabetes 2016, [place] [employer]. Diabetes Care. 2016.39(Suppl 1). Results may be falsely elevated after the administration of Sulfapyridine. Results may be falsely depressed after the administration of Sulfasalazine. Performed By: #### B HB, , #### [facility] CLIA [id number] [address] [place] [address] [place] Potassium [Moles/Vol] 3.5 mmol/L Normal 3.5-5.1 [facility] Comment on above: Order Comment: Speci men Type: BLOOD SPECIMEN Ordering Facility: [facility] Address: [address] [place] [address] Performed By: #### B HB, , #### [facility] CLIA [id number] [address] [place] [address] [place] Sodium [Moles/Vol] 143 mmol/L Normal 136-145 [facility] Comment on above: Order Comment: Speci men Type: BLOOD SPECIMEN Ordering Facility: [facility] Address: [address] [place] [address] Performed By: #### B HB, , #### [facility] CLIA [id number] [address] [place] [address] [place] Urea nitrogen [Mass/Vol] 10 mg/dL Normal 7-26 [facility] Comment on above: Order Comment: Speci men Type: BLOOD SPECIMEN Ordering Facility: [facility] Address: [address] [place] [address] Performed By: #### B HB, , #### [facility] CLIA [id number] [address] [place] [address] [place] Anion gap [Moles/Vol] 9 mmol/L Normal 5-16 [facility] Comment on above: Order Comment: Speci men Type: BLOOD SPECIMEN Ordering Facility: [facility] Address: [address] [place] [address] Performed By: #### B HB, , #### [facility] CLIA [id number] [address] [place] [address] [place] Calcium [Mass/Vol] 8.4 mg/dL Low 8.5-10.5 [facility] Comment on above: Order Comment: Speci men Type: BLOOD SPECIMEN Ordering Facility: [facility] Address: [address] [place] [address] Performed By: #### B HB, , #### [facility] CLIA [id number] [address] [place] [address] [place] Chloride [Moles/Vol] 108 mmol/L High 98-107 [facility] Comment on above: Order Comment: Speci men Type: BLOOD SPECIMEN Ordering Facility: [facility] Address: [address] [place] [address] Performed By: #### B HB, , #### [facility] CLIA [id number] [address] [place] [address] [place] CO2 [Moles/Vol] 26 mmol/L Normal 21-32 [facility] Comment on above: Order Comment: Speci men Type: BLOOD SPECIMEN Ordering Facility: [facility] Address: [address] [place] [address] Performed By: #### B HB, , #### [facility] CLIA [id number] [address] [place] [address] [place] Creatinine [Mass/Vol] 0.71 mg/dL Normal 0.50-1.40 [facility] Comment on above: Order Comment: Speci men Type: BLOOD SPECIMEN Ordering Facility: [facility] Address: [address] [place] [address] Result Comment: Desiree ents receiving either N-Acetylcysteine (NAC) or Metamizole prior to venipuncture, may have falsely depressed results. Performed By: #### B HB, , #### [facility] CLIA [id number] [address] [place] [address] [place] Creatinine and Glomerular filtration rate.predicted panel (S/P/Bld) 116 mL/min/1.73m??? Normal >=60 [facility] Comment on above: Order Comment: Moses burton Type: BLOOD SPECIMEN Ordering Facility: [facility] Address: [address] [place] [address] Result Comment: Rosanna mated Glomerular Filtration Rate [...] Performed By: #### B HB, , #### [facility] CLIA [id number] [address] [place] [address] [place] Glucose [Mass/Vol] 220 mg/dL High 70-100 [facility] Comment on above: Order Comment: Moses burton Type: BLOOD SPECIMEN Ordering Facility: [facility] Address: [address] [place] [address] Result Comment: The [place] Diabetes Association (ADA) provides guidance for cutoff [...] Standards of Medical Care in Diabetes 2016, [place] [employer]. Diabetes Care. 2016.39(Suppl 1). Results may be falsely elevated after the administration of Sulfapyridine. Results may be falsely depressed after the administration of Sulfasalazine. Performed By: #### B HB, , #### [facility] CLIA [id number] [address] [place] [address] [place] Potassium [Moles/Vol] 3.8 mmol/L Normal 3.5-5.1 [facility] Comment on above: Order Comment: Speci men Type: BLOOD SPECIMEN Ordering Facility: [facility] Address: [address] [place] [address] Performed By: #### B HB, , 04033-5 #### [facility] CLIA [id number] [address] [place] [address] [place] Sodium [Moles/Vol] 143 mmol/L Normal 136-145 [facility] Comment on above: Order Comment: Speci men Type: BLOOD SPECIMEN Ordering Facility: [facility] Address: [address] [place] [address] Performed By: #### B HB, , 79918-4 #### [facility] CLIA [id number] [address] [place], [place] [address] [place] Urea nitrogen [Mass/Vol] 12 mg/dL Normal 7-26 [facility] Comment on above: Order Comment: Speci men Type: BLOOD SPECIMEN Ordering Facility: [facility] Address: [address] [place] [address] Performed By: #### B HB, , 61018-8 #### [facility] CLIA [id number] [address] [place] [address] [place] Anion gap [Moles/Vol] 12 mmol/L Normal 5-16 [facility] Comment on above: Order Comment: Speci men Type: BLOOD SPECIMEN Ordering Facility: [facility] Address: [address] [place] [address] [place] [address] Performed By: #### B HB, , 76911-2 #### [facility] CLIA [id number] [address] [place], [place] [address] [place] Calcium [Mass/Vol] 8.5 mg/dL Normal 8.5-10.5 [facility] Comment on above: Order Comment: Speci men Type: BLOOD SPECIMEN Ordering Facility: [facility] Address: [address] [place] [address] [place] [address] Performed By: #### B HB, , #### [facility] CLIA [id number] [address] [place] [address] [place] Chloride [Moles/Vol] 107 mmol/L Normal 98-107 [facility] Comment on above: Order Comment: Speci men Type: BLOOD SPECIMEN Ordering Facility: [facility] Address: [address] [place] [address] Performed By: #### B HB, , #### [facility] CLIA [id number] [address] [place], [place] [address] [place] CO2 [Moles/Vol] 23 mmol/L Normal 21-32 [facility] Comment on above: Order Comment: Speci men Type: BLOOD SPECIMEN Ordering Facility: [facility] Address: [address] [place] [address] Performed By: #### B HB, , #### [facility] CLIA [id number] [address] [place], [place] [address] [place] Creatinine [Mass/Vol] 0.72 mg/dL Normal 0.50-1.40 [facility] Comment on above: Order Comment: Speci men Type: BLOOD SPECIMEN Ordering Facility: [facility] Address: [address] [place] [address] Result Comment: Desiree ents receiving either N-Acetylcysteine (NAC) or Metamizole prior to venipuncture, may have falsely depressed results. Performed By: #### B HB, , #### [facility] CLIA [id number] [address] [place], [place] [address] [place] Creatinine and Glomerular filtration rate.predicted panel (S/P/Bld) 116 mL/min/1.73m??? Normal >=60 [facility] Comment on above: Order Comment: Speci men Type: BLOOD SPECIMEN Ordering Facility: [facility] Address: [address] [place] [address] Result Comment: Rosanna mated Glomerular Filtration Rate [...] Performed By: #### B HB, , #### [facility] CLIA [id number] [address] [place] [address] [place] Glucose [Mass/Vol] 286 mg/dL High 70-100 [facility] Comment on above: Order Comment: Moses burton Type: BLOOD SPECIMEN Ordering Facility: [facility] Address: [address] [place] [address] Result Comment: The [place] Diabetes Association (ADA) provides guidance for cutoff [...] Standards of Medical Care in Diabetes 2016, [place] [employer]. Diabetes Care. 2016.39(Suppl 1). Results may be falsely elevated after the administration of Sulfapyridine. Results may be falsely depressed after the administration of Sulfasalazine. Performed By: #### B HB, , #### [facility] CLIA [id number] [address] [place] [address] [place] Potassium [Moles/Vol] 4.0 mmol/L Normal 3.5-5.1 [facility] Comment on above: Order Comment: Moses burton Type: BLOOD SPECIMEN Ordering Facility: [facility] Address: [address] [place] [address] Performed By: #### B HB, , #### [facility] CLIA [id number] [address] [place] [address] [place] Sodium [Moles/Vol] 142 mmol/L Normal 136-145 [facility] Comment on above: Order Comment: Speci men Type: BLOOD SPECIMEN Ordering Facility: [facility] Address: [address] [place] [address] Performed By: #### B HB, , #### [facility] CLIA [id number] [address] [place], [place] [address] [place] Urea nitrogen [Mass/Vol] 12 mg/dL Normal 7-26 [facility] Comment on above: Order Comment: Speci men Type: BLOOD SPECIMEN Ordering Facility: [facility] Address: [address] [place] [address] Performed By: #### B HB, , #### [facility] CLIA [id number] [address] [place] [address] [place] Anion gap [Moles/Vol] 8 mmol/L Normal 5-16 [facility] Comment on above: Order Comment: Speci men Type: BLOOD SPECIMEN Ordering Facility: [facility] Address: [address] [place] [address] Performed By: #### B HB, , #### [facility] CLIA [id number] [address] [place], [place] [address] [place] Calcium [Mass/Vol] 8.5 mg/dL Normal 8.5-10.5 [facility] Comment on above: Order Comment: Speci men Type: BLOOD SPECIMEN Ordering Facility: [facility] Address: [address] [place] [address] Performed By: #### B HB, , #### [facility] CLIA [id number] [address] [place], [place] [address] [place] Chloride [Moles/Vol] 109 mmol/L High 98-107 [facility] Comment on above: Order Comment: Speci men Type: BLOOD SPECIMEN Ordering Facility: [facility] Address: [address] [place] [address] Performed By: #### B HB, , #### [facility] CLIA [id number] [address] [place] [address] [place] CO2 [Moles/Vol] 26 mmol/L Normal 21-32 [facility] Comment on above: Order Comment: Speci men Type: BLOOD SPECIMEN Ordering Facility: [facility] Address: [address] [place] [address] Performed By: #### B HB, , #### [facility] CLIA [id number] [address] [place] [address] [place] Creatinine [Mass/Vol] 0.74 mg/dL Normal 0.50-1.40 [facility] Comment on above: Order Comment: Moses men Type: BLOOD SPECIMEN Ordering Facility: [facility] Address: [address] [place] [address] Result Comment: Desiree ents receiving either N-Acetylcysteine (NAC) or Metamizole prior to venipuncture, may have falsely depressed results. Performed By: #### B HB, , #### [facility] CLIA [id number] [address] [place] [address] Creatinine and Glomerular filtration rate.predicted panel (S/P/Bld) 115 mL/min/1.73m??? Normal >=60 [facility] Comment on above: Order Comment: Moses burton Type: BLOOD SPECIMEN Ordering Facility: [facility] Address: [address] [place] [address] Result Comment: Rosanna mated Glomerular Filtration Rate [...] Performed By: #### B HB, , #### [facility] CLIA [id number] [address] [place] [address] [place] Glucose [Mass/Vol] 173 mg/dL High 70-100 [facility] Comment on above: Order Comment: Moses burton Type: BLOOD SPECIMEN Ordering Facility: [facility] Address: [address] [place] [address] Result Comment: The [place] Diabetes Association (ADA) provides guidance for cutoff [...] Standards of Medical Care in Diabetes 2016, [place] [employer]. Diabetes Care. 2016.39(Suppl 1). Results may be falsely elevated after the administration of Sulfapyridine. Results may be falsely depressed after the administration of Sulfasalazine. Performed By: #### B HB, , #### [facility] CLIA [id number] [address] [place] [address] [place] Potassium [Moles/Vol] 4.0 mmol/L Normal 3.5-5.1 [facility] Comment on above: Order Comment: Moses burton Type: BLOOD SPECIMEN Ordering Facility: [facility] Address: [address] [place] [address] Performed By: #### B HB, , #### [facility] CLIA [id number] [address] [place] [address] [place] Sodium [Moles/Vol] 143 mmol/L Normal 136-145 [facility] Comment on above: Order Comment: Moses burton Type: BLOOD SPECIMEN Ordering Facility: [facility] Address: [address] [id number] Performed By: #### B HB, , 91982-8 #### [facility] CLIA [id number] [address] [place] [address] [place] Urea nitrogen [Mass/Vol] 11 mg/dL Normal 7-26 [facility] Comment on above: Order Comment: Speci men Type: BLOOD SPECIMEN Ordering Facility: [facility] Address: [address] [place] [address] Performed By: #### B HB, , #### [facility] CLIA [id number] [address] [place], [place] [address] [place] Anion gap [Moles/Vol] 7 mmol/L Normal 5-16 [facility] Comment on above: Order Comment: Speci men Type: BLOOD SPECIMEN Ordering Facility: [facility] Address: [address] [place] [address] Performed By: #### B HB, , #### [facility] CLIA [id number] [address] [place], [place] [address] [place] Calcium [Mass/Vol] 7.9 mg/dL Low 8.5-10.5 [facility] Comment on above: Order Comment: Speci men Type: BLOOD SPECIMEN Ordering Facility: [facility] Address: [address] [place] [address] Performed By: #### B HB, , #### [facility] CLIA [id number] [address] [place], [place] [address] [place] Chloride [Moles/Vol] 109 mmol/L High 98-107 [facility] Comment on above: Order Comment: Speci men Type: BLOOD SPECIMEN Ordering Facility: [facility] Address: [address] [place] [address] Performed By: #### B HB, , #### [facility] CLIA [id number] [address] [place], [place] [address] [place] CO2 [Moles/Vol] 23 mmol/L Normal 21-32 [facility] Comment on above: Order Comment: Moses burton Type: BLOOD SPECIMEN Ordering Facility: [facility] Address: [address] [place], [place] [address] Performed By: #### B HB, , #### [facility] CLIA [id number] [address] [place] [address] [place] Creatinine [Mass/Vol] 0.81 mg/dL Normal 0.50-1.40 [facility] Comment on above: Order Comment: Delfinai men Type: BLOOD SPECIMEN Ordering Facility: [facility] Address: [address] [place] [address] Result Comment: Desiree ents receiving either N-Acetylcysteine (NAC) or Metamizole prior to venipuncture, may have falsely depressed results. Performed By: #### B KATEY, , #### [facility] CLIA [id number] [address] [place] [address] [place] Creatinine and Glomerular filtration rate.predicted panel (S/P/Bld) 111 mL/min/1.73m??? Normal >=60 [facility] Comment on above: Order Comment: Moses burton Type: BLOOD SPECIMEN Ordering Facility: [facility] Address: [address] [place] [address] Result Comment: Rosanna mated Glomerular Filtration Rate [...] Performed By: #### B HB, , #### [facility] CLIA [id number] [address] [place] [address] [place] Glucose [Mass/Vol] 176 mg/dL High 70-100 [facility] Comment on above: Order Comment: Moses burton Type: BLOOD SPECIMEN Ordering Facility: [facility] Address: [address] [place] [address] Result Comment: The [place] Diabetes Association (ADA) provides guidance for cutoff [...] Standards of Medical Care in Diabetes 2016, [place] [employer]. Diabetes Care. 2016.39(Suppl 1). Results may be falsely elevated after the administration of Sulfapyridine. Results may be falsely depressed after the administration of Sulfasalazine. Performed By: #### B HB, , #### [facility] CLIA [id number] [address] [place] [address] [place] Potassium [Moles/Vol] 3.8 mmol/L Normal 3.5-5.1 [facility] Comment on above: Order Comment: Speci men Type: BLOOD SPECIMEN Ordering Facility: [facility] Address: [address] [place] [address] Performed By: #### B HB, , #### [facility] CLIA [id number] [address] [place] [address] [place] Sodium [Moles/Vol] 139 mmol/L Normal 136-145 [facility] Comment on above: Order Comment: Speci men Type: BLOOD SPECIMEN Ordering Facility: [facility] Address: [address] [place], [place] [address] Performed By: #### B HB, , #### [facility] CLIA [id number] [address] [place] [address] [place] Urea nitrogen [Mass/Vol] 8 mg/dL Normal 7-26 [facility] Comment on above: Order Comment: Speci men Type: BLOOD SPECIMEN Ordering Facility: [facility] Address: [address] [place], [place] [address] Performed By: #### B HB, , #### [facility] CLIA [id number] [address] [place], [place] [address] [place] Anion gap [Moles/Vol] 5 mmol/L Normal 5-16 [facility] Comment on above: Order Comment: Speci men Type: BLOOD SPECIMEN Ordering Facility: [facility] Address: [address] [place] [address] Performed By: #### B HB, , #### [facility] CLIA [id number] [address] [place], [place] [address] [place] Calcium [Mass/Vol] 8.0 mg/dL Low 8.5-10.5 [facility] Comment on above: Order Comment: Speci men Type: BLOOD SPECIMEN Ordering Facility: [facility] Address: [address] [place] [address] Performed By: #### B HB, , #### [facility] CLIA [id number] [address] [place], [place] [address] [place] Chloride [Moles/Vol] 109 mmol/L High 98-107 [facility] Comment on above: Order Comment: Speci men Type: BLOOD SPECIMEN Ordering Facility: [facility] Address: [address] [place] [address] Performed By: #### B HB, , #### [facility] CLIA [id number] [address] [place] [address] [place] CO2 [Moles/Vol] 27 mmol/L Normal 21-32 [facility] Comment on above: Order Comment: Speci men Type: BLOOD SPECIMEN Ordering Facility: [facility] Address: [address] [place] [address] Performed By: #### B HB, , #### [facility] CLIA [id number] [address] [place] [address] [place] Creatinine [Mass/Vol] 0.87 mg/dL Normal 0.50-1.40 [facility] Comment on above: Order Comment: Moses burton Type: BLOOD SPECIMEN Ordering Facility: [facility] Address: [address] [place] [address] Result Comment: Desiree ents receiving either N-Acetylcysteine (NAC) or Metamizole prior to venipuncture, may have falsely depressed results. Performed By: #### B HB, , #### [facility] CLIA [id number] [address] [place] [address] [place] [facility] [place] Creatinine and Glomerular filtration rate.predicted panel (S/P/Bld) 109 mL/min/1.73m??? Normal >=60 [facility] Comment on above: Order Comment: Moses burton Type: BLOOD SPECIMEN Ordering Facility: [facility] Address: [address] [place] [address] Result Comment: Rosanna mated Glomerular Filtration Rate [...] Performed By: #### B HB, , #### [facility] CLIA [id number] [address] [place] [address] [place] Glucose [Mass/Vol] 125 mg/dL High 70-100 [facility] Comment on above: Order Comment: Moses burton Type: BLOOD SPECIMEN Ordering Facility: [facility] Address: [address] [place] [address] Result Comment: The [place] Diabetes Association (ADA) provides guidance for cutoff [...] Standards of Medical Care in Diabetes 2016, [place] Diabetes Association. Diabetes Care. 2016.39(Suppl 1). Results may be falsely elevated after the administration of Sulfapyridine. Results may be falsely depressed after the administration of Sulfasalazine. Performed By: #### B HB, , #### [facility] CLIA [id number] [address] [place] [address] [place] Potassium [Moles/Vol] 3.6 mmol/L Normal 3.5-5.1 [facility] Comment on above: Order Comment: Moses burton Type: BLOOD SPECIMEN Ordering Facility: [facility] Address: [address] [place] [address] Performed By: #### B HB, , #### [facility] CLIA [id number] [address] [place] [address] [place] Sodium [Moles/Vol] 141 mmol/L Normal 136-145 [facility] Comment on above: Order Comment: Moses burton Type: BLOOD SPECIMEN Ordering Facility: [facility] Address: [address] [place] [address] Performed By: #### B HB, , #### [facility] CLIA [id number] [address] [place] [address] [place] Urea nitrogen [Mass/Vol] 11 mg/dL Normal 7-26 [facility] Comment on above: Order Comment: Moses burton Type: BLOOD SPECIMEN Ordering Facility: [facility] Address: [address] [place] [address] Performed By: #### B HB, , #### [facility] CLIA [id number] [address] [place] [address] [place] CONSULT PROGon 02-08-2024 CONSULT PROG HNO ID: [id number] Author: HERIBERTO JIMENEZ RPh Service: Pharmacy Author Type: Pharmacist Type: Consult Progress Note Filed: 02/08/2024 09:36 Note Text: PHARMACY VANCOMYCIN DOSING NOTE Patient Name: Luisito Zhong Admission Date: 02/06/2024 Date of Consult: 02/08/2024 Time of Consult: 9:36 AM Vancomycin has been discontinued by Dr. Dan. Thank you for the consult. Heriberto Jimenez [facility] Normal [facility] HIGH SENSITIVITY TROPONIN Io n 02-08-2024 Tropinin I.cardiac panel High sensitivity method 62.9 pg/mL High 0.0-54.0 [facility] Comment on above: Order Comment: Moses burton Type: BLOOD SPECIMEN Ordering Facility: [facility] Address: [address] [place] [address] Result Comment: CRIT ICAL Performed By: #### B HB, 03926-8, 28036-4 #### [facility] CLIA [id number] [address] [place] [address] OF [facility] Tropinin I.cardiac panel High sensitivity method 67.1 pg/mL High 0.0-54.0 [facility] Comment on above: Order Comment: Moses burton Type: BLOOD SPECIMEN Ordering Facility: [facility] Address: [address] [place] [address] Result Comment: CRIT ICAL Performed By: #### B HB, 48392-1, 31909-2 #### [facility] CLIA [id number] [address] [place] [address] OF [facility] Tropinin I.cardiac panel High sensitivity method 79.7 pg/mL High 0.0-54.0 [facility] Comment on above: Order Comment: Moses burton Type: BLOOD SPECIMEN Ordering Facility: [facility] Address: [address] [place] [address] Result Comment: CRIT ICAL Performed By: #### B HB, 12922-1, 18464-0 #### [facility] CLIA [id number] [address] [place] [address] [place] Tropinin I.cardiac panel High sensitivity method 78.0 pg/mL High 0.0-54.0 [facility] Comment on above: Order Comment: Speci men Type: BLOOD SPECIMEN Ordering Facility: [facility] Address: [address] [place] [address] Result Comment: CRIT ICAL Performed By: #### B HB, , #### [facility] CLIA [id number] [address] [place] [address] [place] Lactate (Bld) [Moles/Vol]on 02-08-2024 Lactate [Moles/Vol] 1.7 mmol/L Normal 0.4-2.0 [facility] Comment on above: Order Comment: Speci men Type: BLOOD SPECIMEN Ordering Facility: [facility] Address: [address] [place] [address] Performed By: #### B HB, , #### [facility] CLIA [id number] [address] [place] [address] [place] Lactate [Moles/Vol] 1.4 mmol/L Normal 0.4-2.0 [facility] Comment on above: Order Comment: Speci men Type: BLOOD SPECIMEN Ordering Facility: [facility] Address: [address] [place] [address] Performed By: #### B HB, , #### [facility] CLIA [id number] [address] [place] [address] [place] Lactate [Moles/Vol] 1.2 mmol/L Normal 0.4-2.0 [facility] Comment on above: Order Comment: Speci men Type: BLOOD SPECIMEN Ordering Facility: [facility] Address: [address] [place] [address] Performed By: #### B HB, , #### [facility] CLIA [id number] [address] [place] [address] [place] Lactate [Moles/Vol] 1.3 mmol/L Normal 0.4-2.0 [facility] Comment on above: Order Comment: Speci men Type: BLOOD SPECIMEN Ordering Facility: [facility] Address: [address], [place] [address] Performed By: #### B HB, 15626-6, 78162-4 #### [facility] CLIA [id number] [address] OF [place] NUTRITIONon 02-08-2024 NUTRITION HNO ID: [id number] Author: JOSELINE SMYTH RD Service: ? Author Type: Registered [...] bridged to sq insulin. 02/07: extubated to [place]. Passed CARTOGRAPHIC AIDE eval, diet advanced Fluid status +8.7L since admit Intake History: Nutrition Intake Prior to Admission: Unable to determine Current Nutrition Intake: 0-25% estimated energy needs (per I/O's) Current Intake Over time: (x 1 day LOS) Dosing Weight: 89.1 kg (196 lb 6.9 oz) Dosing Weight Type: Admit weight Estimated kilocalorie needs: 1999 - 2199 Calorie Calculation Method: Broadwater-St. Jeor (with activity factor) Estimated protein needs [...] February 08, 2024 TIME: 2:42 PM Normal [facility] Phosphate SerPl-mCncon 02-07 Phosphate [Mass/Vol] 2.2 mg/dL Low 2.5-4.9 [facility] Comment on above: Order Comment: Moses burton Type: BLOOD SPECIMEN Ordering Facility: [facility] Address: [address] [place], [place] [address] Result Comment: Elev ated m-protein (paraprotein) levels in the serum may be exhibited in patients with monoclonal gammopathies, causing falsely elevated inorganic phosphorus results. Performed By: #### Yvonne DEL TORO, , #### [facility] CLIA [id number] [address] [place] [address] [place] T4 Free SerPl-mCncon 024 Free T4 [Mass/Vol] 0.3 ng/dL Low 0.8-1.5 [facility] Comment on above: Order Comment: Moses burton Type: BLOOD SPECIMEN Ordering Facility: [facility] Address: [address] [place], [place] [address] Performed By: #### Yvonne DEL TORO, , #### [facility] CLIA [id number] [address] STATES OF [facility] ALLIED HEALTHon 02-07-2024 ALLIED HEALTH HNO ID: [id number] Author: CALVIN GUZMAN RN Service: Wound/Ostomy Author Type: Registered Nurse Type: [...] 1013 Wound Care Consult Routine Active Giorgi Ramirez APRN.AMBULANCE ATTENDANT - Wound present on admission to the [...] further or if new problems arise. Normal [facility] ARTERIAL BLOOD GASESon 02-06 Base deficit (BldA) [Moles/Vol] -16 mmol/L Low -2-0 [facility] Comment on above: Order Comment: Speci men Type: BLOOD SPECIMEN Ordering Facility: [facility] Address: [address] [place] [address] Performed By: #### 5 5454-3 #### [facility] CLIA [id number] [address] [place] [address] [place] #### 58265-1 #### [facility] CLIA [id number] [address] [place] [address] [place] Body temperature 98.6 [degF] Normal [facility] Comment on above: Order Comment: Speci josephine Type: BLOOD SPECIMEN Ordering Facility: [facility] Address: [address] [place] [address] Performed By: #### 5 5454-3 #### [facility] CLIA [id number] [address] [place] [address] [place] #### 47474-9 #### [facility] CLIA [id number] [address] [place] [address] [place] Calcium.ionized (Bld) [Mass/Vol] 1.21 mmol/L Normal 1.08-1.30 [facility] Comment on above: Order Comment: Speci men Type: BLOOD SPECIMEN Ordering Facility: [facility] Address: [address] [place] [address] Performed By: #### 5 5454-3 #### [facility] CLIA [id number] [address] [place] [address] [place] #### 10994-5 #### [facility] CLIA [id number] [address] [place] [address] [place] Carboxyhemoglobin (BldA) [Mass fraction] 0.3 % Normal 0.0-2.0 [facility] Comment on above: Order Comment: Speci men Type: BLOOD SPECIMEN Ordering Facility: [facility] Address: [address] [place] [address] Result Comment: Carb oxyhemoglobin Reference Range for Smokers: 2.0-8.0% Performed By: #### 5 5454-3 #### [facility] CLIA [id number] [address] [place] [address] [place] #### 85985-7 #### [facility] CLIA [id number] [address] [place] [address] [place] CO2 (Bld) [Partial pressure] 22 mm Hg Low 36-46 [facility] Comment on above: Order Comment: Speci men Type: BLOOD SPECIMEN Ordering Facility: [facility] Address: [address] [place] [address] Performed By: #### 5 5454-3 #### [facility] CLIA [id number] [address] [place] [address] [place] #### 91848-9 #### [facility] CLIA [id number] [address] [place] [address] [place] FIO2 100.0 % Normal [facility] Comment on above: Order Comment: Speci men Type: BLOOD SPECIMEN Ordering Facility: [facility] Address: [address] [place] [address] Performed By: #### 5 5454-3 #### [facility] CLIA [id number] [address] [place] [address] [place] #### 00810-5 #### [facility] CLIA [id number] [address] [place] [address] [place] Glucose [Mass/Vol] 363 mg/dL High 60-105 [facility] Comment on above: Order Comment: Speci men Type: BLOOD SPECIMEN Ordering Facility: [facility] Address: [address] [place] [address] Performed By: #### 5 5454-3 #### [facility] CLIA [id number] [address] [place] [address] [place] #### 60807-5 #### [facility] CLIA [id number] [address] [place] [address] [place] HCO3 (Bld) [Moles/Vol] 10 mmol/L Low 22-26 [facility] Comment on above: Order Comment: Speci men Type: BLOOD SPECIMEN Ordering Facility: [facility] Address: [address] [place] [address] Performed By: #### 5 5454-3 #### [facility] CLIA [id number] [address] [place] [address] [place] #### 62212-2 #### [facility] CLIA [id number] [address] [place] [address] [place] Hemoglobin (Bld) [Mass/Vol] 12.7 g/dL Low 13.0-17.0 [facility] Comment on above: Order Comment: Speci men Type: BLOOD SPECIMEN Ordering Facility: [facility] Address: [address] [place] [address] Performed By: #### 5 5454-3 #### [facility] CLIA [id number] [address] [place] [address] [place] #### 27792-4 #### [facility] CLIA [id number] [address] [place] [address] [place] INHALED TIDAL VOLUME (ML) 520 Normal [facility] Comment on above: Order Comment: Speci men Type: BLOOD SPECIMEN Ordering Facility: [facility] Address: [address] [place] [address] Performed By: #### 5 5454-3 #### [facility] CLIA [id number] [address] [place] [address] [place] #### 37515-8 #### [facility] CLIA [id number] [address] [place] [address] [place] INVASIVE VENTILATOR MODE A/C PRVC or VC+ or APVcmv (PC-CMVa) Normal [facility] Comment on above: Order Comment: Speci men Type: BLOOD SPECIMEN Ordering Facility: [facility] Address: [address] [place] [address] Performed By: #### 5 5454-3 #### [facility] CLIA [id number] [address] [place] [address] [place] #### 40605-0 #### [facility] CLIA [id number] [address] [place] [address] [place] Lactate [Moles/Vol] 4.9 mmol/L High 0.5-2.2 [facility] Comment on above: Order Comment: Speci men Type: BLOOD SPECIMEN Ordering Facility: [facility] Address: [address] [place] [address] Performed By: #### 5 5454-3 #### [facility] CLIA [id number] [address] [place] [address] [place] #### 73103-3 #### [facility] CLIA [id number] [address] [place] [address] [place] Methemoglobin (Bld) [Mass fraction] 0.5 % Normal 0.0-1.5 [facility] Comment on above: Order Comment: Speci men Type: BLOOD SPECIMEN Ordering Facility: [facility] Address: [address] [place] [address] Performed By: #### 5 5454-3 #### [facility] CLIA [id number] [address] [place] [address] [place] #### 70200-3 #### [facility] CLIA [id number] [address] [place] [address] [place] O2 THERAPY Ventilator Normal [facility] Comment on above: Order Comment: Speci men Type: BLOOD SPECIMEN Ordering Facility: [facility] Address: [address] [place] [address] Performed By: #### 5 5454-3 #### [facility] CLIA [id number] [address] [place] [address] [place] #### 60758-1 #### [facility] CLIA [id number] [address] [place] [address] [place] Oxygen (Bld) [Partial pressure] 150 mm Hg High 85-95 [facility] Comment on above: Order Comment: Speci men Type: BLOOD SPECIMEN Ordering Facility: [facility] Address: [address] [place] [address] Performed By: #### 5 5454-3 #### [facility] CLIA [id number] [address] [place] [address] [place] #### 44889-8 #### [facility] CLIA [id number] [address] [place], [place] [address] [place] Oxyhemoglobin (BldA) [Mass fraction] 97 % Normal 95-98 [facility] Comment on above: Order Comment: Speci men Type: BLOOD SPECIMEN Ordering Facility: [facility] Address: [address] [place] [address] Performed By: #### 5 5454-3 #### [facility] CLIA [id number] [address] [place] [address] [place] #### 83925-0 #### [facility] CLIA [id number] [address] [place] [address] [place] PEEP/CPAP 5 cmH2O Normal [facility] Comment on above: Order Comment: Speci men Type: BLOOD SPECIMEN Ordering Facility: [facility] Address: [address] [place] [address] Performed By: #### 5 5454-3 #### [facility] CLIA [id number] [address] [place] [address] [place] #### 30118-6 #### [facility] CLIA [id number] [address] [place] [address] [place] pH (Bld) 7.26 [pH] Low 7.35-7.45 [facility] Comment on above: Order Comment: Speci men Type: BLOOD SPECIMEN Ordering Facility: [facility] Address: [address] [place] [id number] Performed By: #### 5 5454-3 #### [facility] CLIA [id number] [address] [place] [address] [place] #### 65700-1 #### [facility] CLIA [id number] [address] [place] [address] [place] PO2 / FIO2 RATIO 150 mmHg Low >300 [facility] Comment on above: Order Comment: Speci men Type: BLOOD SPECIMEN Ordering Facility: [facility] Address: [address] [place] [id number] Performed By: #### 5 5454-3 #### [facility] CLIA [id number] [address] [place] [address] [place] #### 87306-7 #### [facility] CLIA [id number] [address] [place] [address] [place] Potassium [Moles/Vol] 4.1 mmol/L Normal 2.5-6.0 [facility] Comment on above: Order Comment: Speci men Type: BLOOD SPECIMEN Ordering Facility: [facility] Address: [address] [place] [address] Performed By: #### 5 5454-3 #### [facility] CLIA [id number] [address] [place] [address] [place] #### 22499-6 #### [facility] CLIA [id number] [address] [place] [address] [place] SET VENTILATOR RESPIRATORY RATE (BPM) 32 BPM Normal [facility] Comment on above: Order Comment: Speci men Type: BLOOD SPECIMEN Ordering Facility: [facility] Address: [address] [place] [address] Performed By: #### 5 5454-3 #### [facility] CLIA [id number] [address] [place] [address] [place] #### 66020-3 #### [facility] CLIA [id number] [address] [place] [address] [place] Sodium [Moles/Vol] 136 mmol/L Normal 136-144 [facility] Comment on above: Order Comment: Speci men Type: BLOOD SPECIMEN Ordering Facility: [facility] Address: [address] [place] [address] Performed By: #### 5 5454-3 #### [facility] CLIA [id number] [address] [place] [address] [place] #### 98281-4 #### [facility] CLIA [id number] [address] [place] [address] [place] Ammonia Plas-sCncon 02-07-20 24 Ammonia (P) [Moles/Vol] 94 umol/L High 11-32 [facility] Comment on above: Order Comment: Speci men Type: BLOOD SPECIMEN Ordering Facility: [facility] Address: [address] [place] [address] Result Comment: Resu lts may be falsely depressed after the administration of Sulfapyridine. Results may be falsely elevated after the administration of Sulfasalazine. Performed By: #### 5 5454-3 #### [facility] CLIA [id number] [address] [place] [address] [id number] [place] [address] [place] #### 71709-4 #### [facility] CLIA [id number] [address] [place] [address] [place] Bas Metab 2000 Pnl SerPlon 0 02-07-2024 Anion gap [Moles/Vol] 12 mmol/L Normal 5-16 [facility] Comment on above: Order Comment: Speci men Type: BLOOD SPECIMEN Ordering Facility: [facility] Address: [address] [place] [address] Performed By: #### L [id number], 28615-4 #### [facility] CLIA [id number] [address] [place] [address] [place] Calcium [Mass/Vol] 8.3 mg/dL Low 8.5-10.5 [facility] Comment on above: Order Comment: Speci men Type: BLOOD SPECIMEN Ordering Facility: [facility] Address: [address] [place] [address] Performed By: #### L [id number], 58369-6 #### [facility] CLIA [id number] [address] [place] [address] [place] Chloride [Moles/Vol] 107 mmol/L Normal 98-107 [facility] Comment on above: Order Comment: Speci men Type: BLOOD SPECIMEN Ordering Facility: [facility] Address: [address] [place] [address] Performed By: #### L [id number], 21409-6 #### [facility] CLIA [id number] [address] [place] [address] [place] CO2 [Moles/Vol] 19 mmol/L Low 21-32 [facility] Comment on above: Order Comment: Moses burton Type: BLOOD SPECIMEN Ordering Facility: [facility] Address: [address] [place] [address] Performed By: #### L [id number], 90060-8 #### [facility] CLIA [id number] [address] [place] [address] Creatinine [Mass/Vol] 0.89 mg/dL Normal 0.50-1.40 [facility] Comment on above: Order Comment: Delfinai men Type: BLOOD SPECIMEN Ordering Facility: [facility] Address: [address] [place] [address] Result Comment: Desiree ents receiving either N-Acetylcysteine (NAC) or Metamizole prior to venipuncture, may have falsely depressed results. Performed By: #### L [id number], 97207-2 #### [facility] CLIA [id number] [address] [place] [address] Creatinine and Glomerular filtration rate.predicted panel (S/P/Bld) 108 mL/min/1.73m??? Normal >=60 [facility] Comment on above: Order Comment: Moses burton Type: BLOOD SPECIMEN Ordering Facility: [facility] Address: [address] [place] [address] Result Comment: Rosanna mated Glomerular Filtration Rate (eGFR) is calculated using the 202 CKD-EPI creatinine equation. This equation utilizes serum [...] reflect actual GFR. Performed By: #### L [id number], 13865-7 #### [facility] CLIA [id number] [address] [place] [address] [place] Result Comment: Rosanna mated [...] GFR. Glucose [Mass/Vol] 175 mg/dL High 70-100 [facility] Comment on above: Order Comment: Moses burton Type: BLOOD SPECIMEN Ordering Facility: [facility] Address: [address] [place] [address] Result Comment: The [place] [employer] (ADA) provides guidance for cutoff [...] Standards of Medical Care in Diabetes 2016, [place] [employer]. Diabetes Care. 2016.39(Suppl 1). Results may be falsely elevated after the administration of Sulfapyridine. Results may be falsely depressed after the administration of Sulfasalazine. Performed By: #### L [id number], 96468-9 #### [facility] CLIA [id number] [address] [place], [place] [address] [place] Potassium [Moles/Vol] 3.5 mmol/L Normal 3.5-5.1 [facility] Comment on above: Order Comment: Moses burton Type: BLOOD SPECIMEN Ordering Facility: [facility] Address: [address] [place] [address] Performed By: #### L [id number], 32260-0 #### [facility] CLIA [id number] [address] [place], [place] [address] [place] Sodium [Moles/Vol] 138 mmol/L Normal 136-145 [facility] Comment on above: Order Comment: Speci men Type: BLOOD SPECIMEN Ordering Facility: [facility] Address: [address] [facility] [place] [address] Performed By: #### L [id number], 44408-9 #### [facility] CLIA [id number] [address] [place] [address] [place] Urea nitrogen [Mass/Vol] 12 mg/dL Normal 7-26 [facility] Comment on above: Order Comment: Speci men Type: BLOOD SPECIMEN Ordering Facility: [facility] Address: [address] [place] [address] Performed By: #### L [id number], 22569-5 #### [facility] CLIA [id number] [address] [place] [address] [place] Anion gap [Moles/Vol] 21 mmol/L High 5-16 [facility] Comment on above: Order Comment: Speci men Type: BLOOD SPECIMEN Ordering Facility: [facility] Address: [address] [place] [address] Performed By: #### 5 5454-3 #### [facility] CLIA [id number] [address] [place] [address] [place] #### 27043-6 #### [facility] CLIA [id number] [address] [place] [address] [place] Calcium [Mass/Vol] 8.3 mg/dL Low 8.5-10.5 [facility] Comment on above: Order Comment: Speci men Type: BLOOD SPECIMEN Ordering Facility: [facility] Address: [address] [place] [address] Performed By: #### 5 5454-3 #### [facility] CLIA [id number] [address] [place] [address] [place] #### 07142-9 #### [facility] CLIA [id number] [address] [place], [place] [address] [place] Chloride [Moles/Vol] 104 mmol/L Normal 98-107 [facility] Comment on above: Order Comment: Speci men Type: BLOOD SPECIMEN Ordering Facility: [facility] Address: [address] [place] [address] Performed By: #### 5 5454-3 #### [facility] CLIA [id number] [address] [place] [address] [place] #### 43107-1 #### [facility] CLIA [id number] [address] [place] [address] [place] CO2 [Moles/Vol] 11 mmol/L Low 21-32 [facility] Comment on above: Order Comment: Speci men Type: BLOOD SPECIMEN Ordering Facility: [facility] Address: [address] [place] [address] Performed By: #### 5 5454-3 #### [facility] CLIA [id number] [address] [place] [address] [place] #### 07748-2 #### [facility] CLIA [id number] [address] [place] [address] [place] Creatinine [Mass/Vol] 1.03 mg/dL Normal 0.50-1.40 [facility] Comment on above: Order Comment: Speci men Type: BLOOD SPECIMEN Ordering Facility: [facility] Address: [address] [place] [address] Result Comment: Desiree ents receiving either N-Acetylcysteine (NAC) or Metamizole prior to venipuncture, may have falsely depressed results. Performed By: #### 5 5454-3 #### [facility] CLIA [id number] [address] [place] [address] [place] #### 97603-6 #### [facility] CLIA [id number] [address] [place] [address] [place] Creatinine and Glomerular filtration rate.predicted panel (S/P/Bld) 92 mL/min/1.73m??? Normal >=60 [facility] Comment on above: Order Comment: Moses burton Type: BLOOD SPECIMEN Ordering Facility: [facility] Address: [address] [place] [id number] Result Comment: Rosanna mated Glomerular Filtration Rate [...] GFR. Performed By: #### 5 5454-3 #### [facility] CLIA [id number] [address] [place] [address] [place] #### 03886-7 #### [facility] CLIA [id number] [address] [place] [address] [place] Result Comment: Rosanna mated [...] GFR. Glucose [Mass/Vol] 340 mg/dL High 70-100 [facility] Comment on above: Order Comment: Moses burton Type: BLOOD SPECIMEN Ordering Facility: [facility] Address: [address] [id number] Result Comment: The [place] Diabetes Association (ADA) provides guidance for cutoff [...] Standards of Medical Care in Diabetes 2016, [place] [employer]. Diabetes Care. 2016.39(Suppl 1). Results may be falsely elevated after the administration of Sulfapyridine. Results may be falsely depressed after the administration of Sulfasalazine. Performed By: #### 5 5454-3 #### [facility] CLIA [id number] [address] [place] [address] [place] #### 08360-5 #### [facility] CLIA [id number] [address] [place] [address] [place] Potassium [Moles/Vol] 3.8 mmol/L Normal 3.5-5.1 [facility] Comment on above: Order Comment: Speci men Type: BLOOD SPECIMEN Ordering Facility: [facility] Address: [address] [place] [address] Performed By: #### 5 5454-3 #### [facility] CLIA [id number] [address] [place] [address] [place] #### 39072-1 #### [facility] CLIA [id number] [address] [place] [address] [place] Sodium [Moles/Vol] 136 mmol/L Normal 136-145 [facility] Comment on above: Order Comment: Speci men Type: BLOOD SPECIMEN Ordering Facility: [facility] Address: [address] [place] [address] Performed By: #### 5 5454-3 #### [facility] CLIA [id number] [address] [place] [address] [place] #### 15801-6 #### [facility] CLIA [id number] [address] [place] [address] [place] Urea nitrogen [Mass/Vol] 14 mg/dL Normal 7-26 [facility] Comment on above: Order Comment: Speci men Type: BLOOD SPECIMEN Ordering Facility: [facility] Address: [address] [place] [address] Performed By: #### 5 5454-3 #### [facility] CLIA [id number] [address] [facility] [id number] [address] [place] #### 69580-1 #### [facility] CLIA [id number] [address] [place], [place] [address] [place] Basic metabolic 2000 panelon 02-07-2024 Anion gap [Moles/Vol] 10 mmol/L Normal 5-16 [facility] Comment on above: Order Comment: Speci men Type: BLOOD SPECIMEN Ordering Facility: [facility] Address: [address] [place] [address] Performed By: #### B HB, , #### [facility] CLIA [id number] [address] [place] [address] [place] Calcium [Mass/Vol] 8.0 mg/dL Low 8.5-10.5 [facility] Comment on above: Order Comment: Speci men Type: BLOOD SPECIMEN Ordering Facility: [facility] Address: [address] [place] [address] Performed By: #### B HB, , 78906-8 #### [facility] CLIA [id number] [address] [place] [address] [place] Chloride [Moles/Vol] 107 mmol/L Normal 98-107 [facility] Comment on above: Order Comment: Speci men Type: BLOOD SPECIMEN Ordering Facility: [facility] Address: [address] [place] [address] Performed By: #### B HB, , #### [facility] CLIA [id number] [address] [place] [address] [place] CO2 [Moles/Vol] 22 mmol/L Normal 21-32 [facility] Comment on above: Order Comment: Speci men Type: BLOOD SPECIMEN Ordering Facility: [facility] Address: [address] [place] [address] Performed By: #### B HB, , #### [facility] CLIA [id number] [address] [place] [address] [place] Creatinine [Mass/Vol] 0.89 mg/dL Normal 0.50-1.40 [facility] Comment on above: Order Comment: Speci men Type: BLOOD SPECIMEN Ordering Facility: [facility] Address: [address] [place] [address] Result Comment: Desiree ents receiving either N-Acetylcysteine (NAC) or Metamizole prior to venipuncture, may have falsely depressed results. Performed By: #### B HB, , #### [facility] CLIA [id number] [address] [place] [address] [place] Creatinine and Glomerular filtration rate.predicted panel (S/P/Bld) 108 mL/min/1.73m??? Normal >=60 [facility] Comment on above: Order Comment: Speci men Type: BLOOD SPECIMEN Ordering Facility: [facility] Address: [address] [place] [address] Result Comment: Rosanna mated Glomerular Filtration Rate [...] Performed By: #### B HB, , #### [facility] CLIA [id number] [address] [place] [address] [place] Glucose [Mass/Vol] 219 mg/dL High 70-100 [facility] Comment on above: Order Comment: Moses burton Type: BLOOD SPECIMEN Ordering Facility: [facility] Address: [address] [place] [address] Result Comment: The [place] Diabetes Association (ADA) provides guidance for cutoff [...] Standards of Medical Care in Diabetes 2016, [place] [employer]. Diabetes Care. 2016.39(Suppl 1). Results may be falsely elevated after the administration of Sulfapyridine. Results may be falsely depressed after the administration of Sulfasalazine. Performed By: #### B HB, , #### [facility] CLIA [id number] [address] [place] [address] [place] Potassium [Moles/Vol] 4.2 mmol/L Normal 3.5-5.1 [facility] Comment on above: Order Comment: Moses burton Type: BLOOD SPECIMEN Ordering Facility: [facility] Address: [address] [place] [address] Performed By: #### B HB, , #### [facility] CLIA [id number] [address] [place], [place] [address] [place] Sodium [Moles/Vol] 139 mmol/L Normal 136-145 [facility] Comment on above: Order Comment: Moses burton Type: BLOOD SPECIMEN Ordering Facility: [facility] Address: [address] [place], [place] [id number] Performed By: #### B HB, , #### [facility] CLIA [id number] [address] [place], [place] [address] [place] Urea nitrogen [Mass/Vol] 12 mg/dL Normal 7-26 [facility] Comment on above: Order Comment: Speci men Type: BLOOD SPECIMEN Ordering Facility: [facility] Address: [address] [place] [address] Performed By: #### B HB, 42342-6, 26599-1 #### [facility] CLIA [id number] [address] [place] [address] [place] Anion gap [Moles/Vol] 13 mmol/L Normal 5-16 [facility] Comment on above: Order Comment: Speci men Type: BLOOD SPECIMEN Ordering Facility: [facility] Address: [address] [place] [address] Performed By: #### L [id number], 88527-6 #### [facility] CLIA [id number] [address] [place] [address] [place] Calcium [Mass/Vol] 8.3 mg/dL Low 8.5-10.5 [facility] Comment on above: Order Comment: Speci men Type: BLOOD SPECIMEN Ordering Facility: [facility] Address: [address] [place] [address] Performed By: #### L [id number], 99026-9 #### [facility] CLIA [id number] [address] [place] [address] [place] Chloride [Moles/Vol] 108 mmol/L High 98-107 [facility] Comment on above: Order Comment: Speci men Type: BLOOD SPECIMEN Ordering Facility: [facility] Address: [address] [place] [address] Performed By: #### L GL1705, 87303-7 #### [facility] CLIA [id number] [address] [place] [address] [place] CO2 [Moles/Vol] 20 mmol/L Low 21-32 [facility] Comment on above: Order Comment: Speci men Type: BLOOD SPECIMEN Ordering Facility: [facility] Address: [address] [place] [address] Performed By: #### L [id number], 57183-2 #### [facility] CLIA [id number] [address] [place] [address] [place] Creatinine [Mass/Vol] 0.88 mg/dL Normal 0.50-1.40 [facility] Comment on above: Order Comment: Moses burton Type: BLOOD SPECIMEN Ordering Facility: [facility] Address: [address] [place] [address] Result Comment: Desiree ents receiving either N-Acetylcysteine (NAC) or Metamizole prior to venipuncture, may have falsely depressed results. Performed By: #### L [id number], 18395-0 #### [facility] CLIA [id number] [address] [place] [address] [place] Creatinine and Glomerular filtration rate.predicted panel (S/P/Bld) 109 mL/min/1.73m??? Normal >=60 [facility] Comment on above: Order Comment: Moses burton Type: BLOOD SPECIMEN Ordering Facility: [facility] Address: [address] [place] [address] Result Comment: Rosanna mated Glomerular Filtration Rate [...] reflect actual GFR. Performed By: #### L [id number], 01700-0 #### [facility] CLIA [id number] [address] [place] [address] [place] Glucose [Mass/Vol] 251 mg/dL High 70-100 [facility] Comment on above: Order Comment: Moses burton Type: BLOOD SPECIMEN Ordering Facility: [facility] Address: [address] [place] [address] Result Comment: The [place] Diabetes Association (ADA) provides guidance for cutoff [...] Standards of Medical Care in Diabetes 2016, [place] [employer]. Diabetes Care. 2016.39(Suppl 1). Results may be falsely elevated after the administration of Sulfapyridine. Results may be falsely depressed after the administration of Sulfasalazine. Performed By: #### L FV1369, 38389-1 #### [facility] CLIA [id number] [address] [place] [address] [place] Potassium [Moles/Vol] 4.6 mmol/L Normal 3.5-5.1 [facility] Comment on above: Order Comment: Moses burton Type: BLOOD SPECIMEN Ordering Facility: [facility] Address: [address] [place] [address] Performed By: #### L [id number], 95002-5 #### [facility] CLIA [id number] [address] [place] [address] [place] Sodium [Moles/Vol] 141 mmol/L Normal 136-145 [facility] Comment on above: Order Comment: Moses burton Type: BLOOD SPECIMEN Ordering Facility: [facility] Address: [address] [place] [address] Performed By: #### L EN1527, 46099-8 #### [facility] CLIA [id number] [address] [place] [address] [place] Urea nitrogen [Mass/Vol] 13 mg/dL Normal 7-26 [facility] Comment on above: Order Comment: Moses burton Type: BLOOD SPECIMEN Ordering Facility: [facility] Address: [address] [place] [address] Performed By: #### L [id number], 52459-2 #### [facility] CLIA [id number] [address] [place] [address] [place] Anion gap [Moles/Vol] 10 mmol/L Normal 5-16 [facility] Comment on above: Order Comment: Speci men Type: BLOOD SPECIMEN Ordering Facility: [facility] Address: [address] [place] [address] Performed By: #### L FM9725, 55435-7 #### [facility] CLIA [id number] [address] [place] [address] [place] Calcium [Mass/Vol] 9.1 mg/dL Normal 8.5-10.5 [facility] Comment on above: Order Comment: Speci men Type: BLOOD SPECIMEN Ordering Facility: [facility] Address: [address] [place] [address] Performed By: #### L [id number], 28982-4 #### [facility] CLIA [id number] [address] [place] [address] [place] Chloride [Moles/Vol] 108 mmol/L High 98-107 [facility] Comment on above: Order Comment: Speci men Type: BLOOD SPECIMEN Ordering Facility: [facility] Address: [address] [place] [address] Performed By: #### L ZY7598, 26195-6 #### [facility] CLIA [id number] [address] [place] [address] [place] CO2 [Moles/Vol] 24 mmol/L Normal 21-32 [facility] Comment on above: Order Comment: Speci men Type: BLOOD SPECIMEN Ordering Facility: [facility] Address: [address] [place] [address] Performed By: #### L [id number], 56342-5 #### [facility] CLIA [id number] [address] [place] [address] [place] Creatinine [Mass/Vol] 0.91 mg/dL Normal 0.50-1.40 [facility] Comment on above: Order Comment: Speci men Type: BLOOD SPECIMEN Ordering Facility: [facility] Address: [address] [place] [address] Result Comment: Desiree ents receiving either N-Acetylcysteine (NAC) or Metamizole prior to venipuncture, may have falsely depressed results. Performed By: #### L [id number], 17761-5 #### [facility] CLIA [id number] [address] [place] [address] [place] Creatinine and Glomerular filtration rate.predicted panel (S/P/Bld) 107 mL/min/1.73m??? Normal >=60 [facility] Comment on above: Order Comment: Moses burton Type: BLOOD SPECIMEN Ordering Facility: [facility] Address: [address] [place] [address] Result Comment: Rosanna mated Glomerular Filtration Rate [...] reflect actual GFR. Performed By: #### L [id number], 01460-3 #### [facility] CLIA [id number] [address] [place] [address] [place] Glucose [Mass/Vol] 133 mg/dL High 70-100 [facility] Comment on above: Order Comment: Moses burton Type: BLOOD SPECIMEN Ordering Facility: [facility] Address: [address] [place] [address] Result Comment: The [place] Diabetes Association (ADA) provides guidance for cutoff [...] Standards of Medical Care in Diabetes 2016, [place] [employer]. Diabetes Care. 2016.39(Suppl 1). Results may be falsely elevated after the administration of Sulfapyridine. Results may be falsely depressed after the administration of Sulfasalazine. Performed By: #### L VL7215, 10920-5 #### [facility] CLIA [id number] [address] [place] [address] [place] Potassium [Moles/Vol] 4.3 mmol/L Normal 3.5-5.1 [facility] Comment on above: Order Comment: Speci men Type: BLOOD SPECIMEN Ordering Facility: [facility] Address: [address] [place] [address] Performed By: #### L [id number], 59134-1 #### [facility] CLIA [id number] [address] [place] [address] [place] Sodium [Moles/Vol] 142 mmol/L Normal 136-145 [facility] Comment on above: Order Comment: Speci men Type: BLOOD SPECIMEN Ordering Facility: [facility] Address: [address] [place] [address] Performed By: #### L VF1912, 22457-8 #### [facility] CLIA [id number] [address] [place] [address] [place] Urea nitrogen [Mass/Vol] 10 mg/dL Normal 7-26 [facility] Comment on above: Order Comment: Speci men Type: BLOOD SPECIMEN Ordering Facility: [facility] Address: [address] [place] [address] Performed By: #### L JF1519, 53410-4 #### [facility] CLIA [id number] [address] [place] [address] [place] Anion gap [Moles/Vol] 29 mmol/L High 5-16 [facility] Comment on above: Order Comment: Speci men Type: BLOOD SPECIMEN Ordering Facility: [facility] Address: [address] [place] [address] Performed By: #### 5 5454-3 #### [facility] CLIA [id number] [address] [place] [address] [place] #### 19220-3 #### [facility] CLIA [id number] [address] [place] [address] [place] Calcium [Mass/Vol] 8.6 mg/dL Normal 8.5-10.5 [facility] Comment on above: Order Comment: Speci men Type: BLOOD SPECIMEN Ordering Facility: [facility] Address: [address] [place] [address] Performed By: #### 5 5454-3 #### [facility] CLIA [id number] [address] [place] [address] [place] #### 62888-1 #### [facility] CLIA [id number] [address] [place] [address] [place] Chloride [Moles/Vol] 101 mmol/L Normal 98-107 [facility] Comment on above: Order Comment: Speci men Type: BLOOD SPECIMEN Ordering Facility: [facility] Address: [address] [place] [address] Performed By: #### 5 5454-3 #### [facility] CLIA [id number] [address] [place] [address] [place] #### 42447-6 #### [facility] CLIA [id number] [address] [place] [address] [place] CO2 [Moles/Vol] 3 mmol/L Low 21-32 [facility] Comment on above: Order Comment: Speci men Type: BLOOD SPECIMEN Ordering Facility: [facility] Address: [address] [place] [address] Performed By: #### 5 5454-3 #### [facility] CLIA [id number] [address] [place] [address] [place] #### 46651-1 #### [facility] CLIA [id number] [address] [place] [address] [place] Creatinine [Mass/Vol] 1.12 mg/dL Normal 0.50-1.40 [facility] Comment on above: Order Comment: Speci men Type: BLOOD SPECIMEN Ordering Facility: [facility] Address: [address] [place] [address] Result Comment: Desiree ents receiving either N-Acetylcysteine (NAC) or Metamizole prior to venipuncture, may have falsely depressed results. Performed By: #### 5 5454-3 #### [facility] CLIA [id number] [address] [place] [address] [place] #### 12880-2 #### [facility] CLIA [id number] [address] [place], [place] [address] [place] Creatinine and Glomerular filtration rate.predicted panel (S/P/Bld) 83 mL/min/1.73m??? Normal >=60 [facility] Comment on above: Order Comment: Moses burton Type: BLOOD SPECIMEN Ordering Facility: [facility] Address: [address] [place] [address] Result Comment: Rosanna mated Glomerular Filtration Rate [...] GFR. Performed By: #### 5 5454-3 #### [facility] CLIA [id number] [address] [place] [address] [place] #### 67704-8 #### [facility] CLIA [id number] [address] [place] [address] [place] Glucose [Mass/Vol] 447 mg/dL High 70-100 [facility] Comment on above: Order Comment: Moses burton Type: BLOOD SPECIMEN Ordering Facility: [facility] Address: [address] [place] [address] Result Comment: The [place] Diabetes Association (ADA) provides guidance for cutoff [...] Standards of Medical Care in Diabetes 2016, [place] [employer]. Diabetes Care. 2016.39(Suppl 1). Results may be falsely elevated after the administration of Sulfapyridine. Results may be falsely depressed after the administration of Sulfasalazine. Performed By: #### 5 5454-3 #### [facility] CLIA [id number] [address] [place] [address] [place] #### 71436-0 #### [facility] CLIA [id number] [address] [place] [address] [place] Potassium [Moles/Vol] Normal [facility] Comment on above: Order Comment: Speci josephine Type: BLOOD SPECIMEN Ordering Facility: [facility] Address: [address] [place] [address] Result Comment: Unab le to assay due to interference from hemolysis. Suggest reorder as clinically indicated. &XA&NOTIFIED PRESTON. Performed By: #### 5 5454-3 #### [facility] CLIA [id number] [address] [place] [address] [place] #### 16209-7 #### [facility] CLIA [id number] [address] [place] [address] [place] Sodium [Moles/Vol] 133 mmol/L Low 136-145 [facility] Comment on above: Order Comment: Speci men Type: BLOOD SPECIMEN Ordering Facility: [facility] Address: [address] [place] [address] Performed By: #### 5 5454-3 #### [facility] CLIA [id number] [address] [place] [address] [place] OF ONUR #### 13593-8 #### [facility] CLIA [id number] [address] [place] [address] [place] Urea nitrogen [Mass/Vol] 12 mg/dL Normal - [facility] Comment on above: Order Comment: Speci men Type: BLOOD SPECIMEN Ordering Facility: [facility] Address: [address] [place] [address] Performed By: #### 5 5454-3 #### [facility] CLIA [id number] [address] [place] [address] [place] [address] [place] #### 21673-3 #### [facility] CLIA [id number] [address] [place] [address] [place] CBC W Auto Differential pane l (Bld)on 02-07-2024 Basophils (Bld) [#/Vol] 0.03 10*3/uL Normal <0.11 [facility] Comment on above: Order Comment: Speci men Type: VENOUS BLOOD SPECIMEN Ordering Facility: [facility] Address: [address] [place] [address] Performed By: #### 2 4344-4 #### [facility] CLIA [id number] [address] [place] [address] [place] Basophils/100 WBC (Bld) 0.3 % Normal [facility] Comment on above: Order Comment: Speci men Type: VENOUS BLOOD SPECIMEN Ordering Facility: [facility] Address: [address] [place] [address] Performed By: #### 2 4344-4 #### [facility] CLIA [id number] [address] [place] [address] STATES [facility] Differential cell count method Nom (Bld) Auto Normal [facility] Comment on above: Order Comment: Speci men Type: VENOUS BLOOD SPECIMEN Ordering Facility: [facility] Address: [address] [place] [address] Performed By: #### 2 4344-4 #### [facility] CLIA [id number] [address] [place] [address] [place] Eosinophils (Bld) [#/Vol] 0.03 10*3/uL Normal <0.46 [facility] Comment on above: Order Comment: Speci men Type: VENOUS BLOOD SPECIMEN Ordering Facility: [facility] Address: [address] [place] [address] Performed By: #### 2 4344-4 #### [facility] CLIA [id number] [address] [place] [address] [place] Eosinophils/100 WBC (Bld) 0.3 % Normal [facility] Comment on above: Order Comment: Speci men Type: VENOUS BLOOD SPECIMEN Ordering Facility: [facility] Address: [address] [place] [address] Performed By: #### 2 4344-4 #### [facility] CLIA [id number] [address] [place] [address] OF ON[place] Erythrocyte distribution width (RBC) [Ratio] 14.6 % Normal 11.5-15.0 [facility] Comment on above: Order Comment: Speci men Type: VENOUS BLOOD SPECIMEN Ordering Facility: [facility] Address: [address] [place] [address] Performed By: #### 2 4344-4 #### [facility] CLIA [id number] [address] [place] [address] [place] Hematocrit (Bld) [Volume fraction] 32.7 % Low 39.0-51.0 [facility] Comment on above: Order Comment: Speci men Type: VENOUS BLOOD SPECIMEN Ordering Facility: [facility] Address: [address] [place] [address] Performed By: #### 2 4344-4 #### [facility] CLIA [id number] [address] [place] [address] [place] Hemoglobin (Bld) [Mass/Vol] 11.4 g/dL Low 13.0-17.0 [facility] Comment on above: Order Comment: Speci men Type: VENOUS BLOOD SPECIMEN Ordering Facility: [facility] Address: [address] [place], [place] [address] Performed By: #### 2 4344-4 #### [facility] CLIA [id number] [address] [place] [address] [place] Immature granulocytes (Bld) [#/Vol] 0.08 10*3/uL Normal <0.10 [facility] Comment on above: Order Comment: Speci men Type: VENOUS BLOOD SPECIMEN Ordering Facility: [facility] Address: [address] [place] [address] Performed By: #### 2 4344-4 #### [facility] CLIA [id number] [address] [place] [address] [place] Immature granulocytes/100 WBC (Bld) 0.8 % Normal [facility] Comment on above: Order Comment: Speci men Type: VENOUS BLOOD SPECIMEN Ordering Facility: [facility] Address: [address] [place] [address] Performed By: #### 2 4344-4 #### [facility] CLIA [id number] [address] [place] [address] [place] Lymphocytes (Bld) [#/Vol] 1.41 10*3/uL Normal 1.00-4.00 [facility] Comment on above: Order Comment: Speci men Type: VENOUS BLOOD SPECIMEN Ordering Facility: [facility] Address: [address] [place] [address] Performed By: #### 2 4344-4 #### [facility] CLIA [id number] [address] [place] [address] [place] Lymphocytes/100 WBC (Bld) 14.4 % Normal [facility] Comment on above: Order Comment: Speci men Type: VENOUS BLOOD SPECIMEN Ordering Facility: [facility] Address: [address] [place] [address] Performed By: #### 2 4344-4 #### [facility] CLIA [id number] [address] [place] [address] [place] MCH (RBC) [Entitic mass] 31.2 pg Normal 26.0-34.0 [facility] Comment on above: Order Comment: Speci men Type: VENOUS BLOOD SPECIMEN Ordering Facility: [facility] Address: [address] [place] [address] Performed By: #### 2 4344-4 #### [facility] CLIA [id number] [address] [place] [address] STATES [facility] MCHC (RBC) [Mass/Vol] 34.9 g/dL Normal 30.5-36.0 [facility] Comment on above: Order Comment: Speci men Type: VENOUS BLOOD SPECIMEN Ordering Facility: [facility] Address: [address] [place] [address] Performed By: #### 2 4344-4 #### [facility] CLIA [id number] [address] [place] [address] MCV (RBC) [Entitic vol] 89.6 fL Normal 80.0-100.0 [facility] Comment on above: Order Comment: Speci men Type: VENOUS BLOOD SPECIMEN Ordering Facility: [facility] Address: [address] [place] [address] Performed By: #### 2 4344-4 #### [facility] CLIA [id number] [address] [place] [address] OF [place] Monocytes (Bld) [#/Vol] 0.63 10*3/uL Normal <0.87 [facility] Comment on above: Order Comment: Speci men Type: VENOUS BLOOD SPECIMEN Ordering Facility: [facility] Address: [address] [place] [address] Performed By: #### 2 4344-4 #### [facility] CLIA [id number] [address] [place] [address] Monocytes/100 WBC (Bld) 6.4 % Normal [facility] Comment on above: Order Comment: Speci men Type: VENOUS BLOOD SPECIMEN Ordering Facility: [facility] Address: [address] [place] [address] Performed By: #### 2 4344-4 #### [facility] CLIA [id number] [address] [place] [address] [place] Neutrophils (Bld) [#/Vol] 7.59 10*3/uL High 1.45-7.50 [facility] Comment on above: Order Comment: Speci men Type: VENOUS BLOOD SPECIMEN Ordering Facility: [facility] Address: [address] [place] [address] Performed By: #### 2 4344-4 #### [facility] CLIA [id number] [address] [place] [address] [place] Neutrophils/100 WBC (Bld) 77.8 % Normal [facility] Comment on above: Order Comment: Speci men Type: VENOUS BLOOD SPECIMEN Ordering Facility: [facility] Address: [address] [place] [address] Performed By: #### 2 4344-4 #### [facility] CLIA [id number] [address] [place] [address] [place] Nucleated RBC (Bld) [#/Vol] 10*3/uL Normal <0.01 [facility] Comment on above: Order Comment: Speci men Type: VENOUS BLOOD SPECIMEN Ordering Facility: [facility] Address: [address] [place] [address] Performed By: #### 2 4344-4 #### [facility] CLIA [id number] [address] [place] [address] [place] Nucleated RBC/100 WBC (Bld) [Ratio] 0.0 /100 WBC Normal [facility] Comment on above: Order Comment: Speci men Type: VENOUS BLOOD SPECIMEN Ordering Facility: [facility] Address: [address] [place] [address] Performed By: #### 2 4344-4 #### [facility] CLIA [id number] [address] [place] [address] [place] Platelet mean volume (Bld) [Entitic vol] 9.8 fL Normal 9.0-12.7 [facility] Comment on above: Order Comment: Speci men Type: VENOUS BLOOD SPECIMEN Ordering Facility: [facility] Address: [address] [place] [address] Performed By: #### 2 4344-4 #### [facility] CLIA [id number] [address] [place] [address] OF [place] Platelets (Bld) [#/Vol] 161 10*3/uL Normal 150-400 [facility] Comment on above: Order Comment: Speci men Type: VENOUS BLOOD SPECIMEN Ordering Facility: [facility] Address: [address] [place] [address] Result Comment: No c lot detected. Performed By: #### 2 4344-4 #### [facility] CLIA [id number] [address] [place] [address] [place] RBC (Bld) [#/Vol] 3.65 10*6/uL Low 4.20-6.00 [facility] Comment on above: Order Comment: Speci men Type: VENOUS BLOOD SPECIMEN Ordering Facility: [facility] Address: [address] [place] [address] Performed By: #### 2 4344-4 #### [facility] IA [id number] [address] [place] [address] OF [facility] WBC (Bld) [#/Vol] 9.77 10*3/uL Normal 3.70-11.00 [facility] Comment on above: Order Comment: Speci men Type: VENOUS BLOOD SPECIMEN Ordering Facility: [facility] Address: [address] [place] [address] Performed By: #### 2 4344-4 #### [facility] CLIA [id number] [address] [place] [address] OF ONUR CK SerPl-cCncon 02-07-2024 CK [Catalytic activity/Vol] 272 U/L High 26-192 [facility] Comment on above: Order Comment: Speci men Type: BLOOD SPECIMEN Ordering Facility: [facility] Address: [address] [place] [address] Performed By: #### L GP8604, 80618-9 #### [facility] CLIA [id number] [address] [place] [address] OF [facility] CONSULT PROGon 02-07-2024 CONSULT PROG HNO ID: [id number] Author: DANIELLE MCKINNON RPh Service: Pharmacy Author [...] Vancomycin Levels: No results found for: DARIA Mckinnon, [facility] CONSULT PROG HNO ID: [id number] Author: ANIYA SKY RPh Service: Pharmacy Author Type: Pharmacist Type: [...] Levels: No results found for: DARIA Sky RPh [facility] CONSULT PROG HNO ID: [id number] Author: LIZA HAYNES RPh Service: Pharmacy Author Type: Pharmacist Type: [...] Vancomycin Levels: No results found for: DARIA [facility] Normal [facility] Calcium.ionized [Moles/Vol]o n 02-07-2024 Calcium.ionized (Bld) [Mass/Vol] 1.12 mmol/L Normal 1.08-1.30 [facility] Comment on above: Order Comment: Speci men Type: VENOUS BLOOD SPECIMEN Ordering Facility: [facility] Address: [address] [place] [address] Performed By: #### 2 4344-4 #### [facility] CLIA [id number] [address] [place] [address] Calcium.ionized adjusted to pH 7.4 (Bld) [Moles/Vol] 1.15 mmol/L Normal 1.08-1.30 [facility] Comment on above: Order Comment: Speci men Type: VENOUS BLOOD SPECIMEN Ordering Facility: [facility] Address: [address] [place] [address] Performed By: #### 2 4344-4 #### [facility] CLIA [id number] [address] [place] [address] Comprehensive metabolic 2000 panelon 02-07-2024 Albumin [Mass/Vol] 2.5 g/dL Low 3.2-5.0 [facility] Comment on above: Order Comment: Speci men Type: BLOOD SPECIMEN Ordering Facility: [facility] Address: [address] [place] [address] Performed By: #### L HM6329, 58899-9 #### [facility] CLIA [id number] [address] [place] [address] [place] ALP [Catalytic activity/Vol] 86 U/L Normal 45-117 [facility] Comment on above: Order Comment: Speci men Type: BLOOD SPECIMEN Ordering Facility: [facility] Address: [address] [place] [address] Performed By: #### L PG2444, 75638-2 #### [facility] CLIA [id number] [address] [place] [address] [place] ALT [Catalytic activity/Vol] 19 U/L Normal 13-61 [facility] Comment on above: Order Comment: Speci men Type: BLOOD SPECIMEN Ordering Facility: [facility] Address: [address] [place] [address] Result Comment: Resu lts may be falsely depressed after the administration of Sulfasalazine and/or Sulfapyridine. Performed By: #### L RM1724, 41900-8 #### [facility] CLIA [id number] [address] [place] [address] [place] AST [Catalytic activity/Vol] 25 U/L Normal 8-34 [facility] Comment on above: Order Comment: Speci men Type: BLOOD SPECIMEN Ordering Facility: [facility] Address: [address] [place] [address] Result Comment: Resu lts may be falsely depressed after the administration of Sulfasalazine and/or Sulfapyridine. Performed By: #### L BW5273, 31711-3 #### [facility] CLIA [id number] [address] [place] [address] [place] Bilirubin [Mass/Vol] 0.7 mg/dL Normal 0.2-1.0 [facility] Comment on above: Order Comment: Speci men Type: BLOOD SPECIMEN Ordering Facility: [facility] Address: [address] [place] [address] Performed By: #### L DV3467, 57924-3 #### [facility] CLIA [id number] [address] [place] [address] [place] Protein [Mass/Vol] 5.1 g/dL Low 6.0-8.5 [facility] Comment on above: Order Comment: Speci men Type: BLOOD SPECIMEN Ordering Facility: [facility] Address: [address] [place] [address] Performed By: #### L ND7033, 14674-2 #### [facility] CLIA [id number] [address] [place] [address] [place] Albumin [Mass/Vol] 2.6 g/dL Low 3.2-5.0 [facility] Comment on above: Order Comment: Speci men Type: BLOOD SPECIMEN Ordering Facility: [facility] Address: [address] [place] [address] Result Comment: DELT A CHECK&XA&Delta Check Reviewed Performed By: #### 5 5454-3 #### [facility] CLIA [id number] [address] [place] [address] [place] #### 41205-8 #### [facility] CLIA [id number] [address] [place], [place] [address] [place] ALP [Catalytic activity/Vol] 93 U/L Normal 45-117 [facility] Comment on above: Order Comment: Speci men Type: BLOOD SPECIMEN Ordering Facility: [facility] Address: [address] [place] [address] Performed By: #### 5 5454-3 #### [facility] CLIA [id number] [address] [place] [address] [place] #### 56144-8 #### [facility] CLIA [id number] [address] [place], [place] [address] [place] ALT [Catalytic activity/Vol] 19 U/L Normal 13-61 [facility] Comment on above: Order Comment: Speci men Type: BLOOD SPECIMEN Ordering Facility: [facility] Address: [address] [place] [address] Result Comment: Resu lts may be falsely depressed after the administration of Sulfasalazine and/or Sulfapyridine. Performed By: #### 5 5454-3 #### [facility] CLIA [id number] [address] [place] [address] [place] #### 82801-6 #### [facility] CLIA [id number] [address] [place] [address] [place] AST [Catalytic activity/Vol] 27 U/L Normal 8-34 [facility] Comment on above: Order Comment: Speci men Type: BLOOD SPECIMEN Ordering Facility: [facility] Address: [address] [place] [address] Result Comment: Resu lts may be falsely depressed after the administration of Sulfasalazine and/or Sulfapyridine. Performed By: #### 5 5454-3 #### [facility] CLIA [id number] [address] [place], [place] [address] [place] #### 39709-2 #### [facility] CLIA [id number] [address] [place] [address] [place] Bilirubin [Mass/Vol] 0.6 mg/dL Normal 0.2-1.0 [facility] Comment on above: Order Comment: Speci men Type: BLOOD SPECIMEN Ordering Facility[facility] Address: [address] [place] [address] Performed By: #### 5 5454-3 #### [facility] CLIA [id number] [address] [place] [address] [place] #### 25445-2 #### [facility] CLIA [id number] [address] [place] [address] [place] Protein [Mass/Vol] 5.1 g/dL Low 6.0-8.5 [facility] Comment on above: Order Comment: Speci men Type: BLOOD SPECIMEN Ordering Facility[facility] Address: [address] [place] [address] Performed By: #### 5 5454-3 #### [facility] CLIA [id number] [address] [place] [address] [place] #### 46268-3 #### [facility] CLIA [id number] [address] [place] [address] [place] Cortis SerPl-mCncon 02-07-20 24 Cortisol [Mass/Vol] 30.1 ug/dL High 3.4-22.5 [facility] Comment on above: Order Comment: Speci men Type: BLOOD SPECIMEN Ordering Facility[facility] Address: [address] [place] [address] Result Comment: PM: Approximately half of A.M. values Performed By: #### L OH2908, 91163-1 #### [facility] CLIA [id number] [address] [place] [address] [place] Ethanol SerPl-mCncon 024 Ethanol [Mass/Vol] 0.003 gm/dL Normal <0.010 [facility] Comment on above: Order Comment: Speci men Type: BLOOD SPECIMEN Ordering Facility: [facility] Address: [address] [place] [address] Performed By: #### 5 5454-3 #### [facility] CLIA [id number] [address] [place] [address] STATES [place] #### 81292-1 #### [facility] CLIA [id number] [address] [place], [place] [address] [place] Gas and Carbon monoxide pane l (BldV)on 02-07-2024 BASE DEFICIT, VENOUS -2 mmol/L Normal -2-0 [facility] Comment on above: Order Comment: Speci men Type: VENOUS BLOOD SPECIMEN Ordering Facility[facility] Address: [address] [place] [address] Performed By: #### 2 4344-4 #### [facility] CLIA [id number] [address] [place] [address] [place] Body temperature 209.3 [degF] Normal [facility] Comment on above: Order Comment: Speci men Type: VENOUS BLOOD SPECIMEN Ordering Facility[facility] Address: [address] [place] [address] Performed By: #### 2 4344-4 #### [facility] CLIA [id number] [address] [place] [address] [place] Calcium.ionized (Bld) [Mass/Vol] 1.02 mmol/L Low 1.08-1.30 [facility] Comment on above: Order Comment: Speci men Type: VENOUS BLOOD SPECIMEN Ordering Facility[facility] Address: [address] [place] [address] Performed By: #### 2 4344-4 #### [facility] CLIA [id number] [address] [place] [address] [place] Carboxyhemoglobin (BldV) [Mass fraction] 1.3 % Normal 0.0-2.0 [facility] Comment on above: Order Comment: Speci men Type: VENOUS BLOOD SPECIMEN Ordering Facility: [facility] Address: [address] [place] [address] Result Comment: Carb oxyhemoglobin Reference Range for Smokers: 2.0-8.0% Performed By: #### 2 4344-4 #### [facility] CLIA [id number] [address] [place] [address] [place] CO2 (BldV) [Partial pressure] 23 mm[Hg] Low 42-55 [facility] Comment on above: Order Comment: Speci men Type: VENOUS BLOOD SPECIMEN Ordering Facility: [facility] Address: [address] [place] [address] Performed By: #### 2 4344-4 #### [facility] CLIA [id number] [address] [place] [address] [place] CO2 adjusted to patient's actual temperature (BldV) [Partial pressure] Normal [facility] Comment on above: Order Comment: Speci men Type: VENOUS BLOOD SPECIMEN Ordering Facility: [facility] Address: [address] [place] [address] Performed By: #### 2 4344-4 #### [facility] CLIA [id number] [address] [place] [address] [place] Glucose [Mass/Vol] 174 mg/dL High 60-105 [facility] Comment on above: Order Comment: Speci men Type: VENOUS BLOOD SPECIMEN Ordering Facility: [facility] Address: [address] [place] [address] Performed By: #### 2 4344-4 #### [facility] CLIA [id number] [address] [place] [address] [place] HCO3 (Bld) [Moles/Vol] 19 mmol/L Low 24-28 [facility] Comment on above: Order Comment: Speci men Type: VENOUS BLOOD SPECIMEN Ordering Facility: [facility] Address: [address] [place] [address] Performed By: #### 2 4344-4 #### [facility] CLIA [id number] [address] [place] [address] [place] Hemoglobin (Bld) [Mass/Vol] 12.6 g/dL Low 13.0-17.0 [facility] Comment on above: Order Comment: Speci men Type: VENOUS BLOOD SPECIMEN Ordering Facility: [facility] Address: [address] [place] [address] Performed By: #### 2 4344-4 #### [facility] CLIA [id number] [address] [place] [address] [place] Lactate [Moles/Vol] 3.5 mmol/L High 0.5-2.2 [facility] Comment on above: Order Comment: Speci men Type: VENOUS BLOOD SPECIMEN Ordering Facility: [facility] Address: [address] [place] [address] Performed By: #### 2 4344-4 #### [facility] CLIA [id number] [address] [place] [address] [place] Methemoglobin (Bld) [Mass fraction] 0.1 % Normal 0.0-1.5 [facility] Comment on above: Order Comment: Speci men Type: VENOUS BLOOD SPECIMEN Ordering Facility[facility] Address: [address] [place] [address] Performed By: #### 2 4344-4 #### [facility] CLIA [id number] [address] [place] [address] [place] O2 THERAPY Ventilator Normal [facility] Comment on above: Order Comment: Speci men Type: VENOUS BLOOD SPECIMEN Ordering Facility: [facility] Address: [address] [place] [address] Performed By: #### 2 4344-4 #### [facility] CLIA [id number] [address] [place] [address] [place] Oxygen (BldV) [Partial pressure] 81 mm[Hg] High 35-45 [facility] Comment on above: Order Comment: Speci men Type: VENOUS BLOOD SPECIMEN Ordering Facility: [facility] Address: [address] [place] [address] Performed By: #### 2 4344-4 #### [facility] CLIA [id number] [address] [place] [address] [place] Oxygen adjusted to patient's actual temperature (BldV) [Partial pressure] Normal [facility] Comment on above: Order Comment: Speci men Type: VENOUS BLOOD SPECIMEN Ordering Facility: [facility] Address: [address] [place] [address] Performed By: #### 2 4344-4 #### [facility] CLIA [id number] [address] [place] [address] [place] Oxyhemoglobin (BldV) [Mass fraction] 96 % Normal 4-98 [facility] Comment on above: Order Comment: Speci men Type: VENOUS BLOOD SPECIMEN Ordering Facility: [facility] Address: [address] [place] [address] Performed By: #### 2 4344-4 #### [facility] CLIA [id number] [address] [place] [address] [place] pH (BldV) 7.53 [pH] High 7.32-7.42 [facility] Comment on above: Order Comment: Speci men Type: VENOUS BLOOD SPECIMEN Ordering Facility: [facility] Address: [address] [place] [address] Performed By: #### 2 4344-4 #### [facility] CLIA [id number] [address] [place] [address] [place] pH adjusted to patient's actual temperature (BldV) Normal [facility] Comment on above: Order Comment: Speci men Type: VENOUS BLOOD SPECIMEN Ordering Facility: [facility] Address: [address] [place] [address] Performed By: #### 2 4344-4 #### [facility] CLIA [id number] [address] [place] [address] [place] Potassium [Moles/Vol] 3.6 mmol/L Normal 2.5-6.0 [facility] Comment on above: Order Comment: Speci men Type: VENOUS BLOOD SPECIMEN Ordering Facility: [facility] Address: [address] [place] [address] Performed By: #### 2 4344-4 #### [facility] CLIA [id number] [address] [place] [address] [place] Sodium [Moles/Vol] 136 mmol/L Normal 136-144 [facility] Comment on above: Order Comment: Speci men Type: VENOUS BLOOD SPECIMEN Ordering Facility: [facility] Address: [address] [place] [address] [place] [address] Performed By: #### 2 4344-4 #### [facility] CLIA [id number] [address] [place] [address] [place] BASE DEFICIT, VENOUS -7 mmol/L Low -2-0 [facility] Comment on above: Order Comment: Speci men Type: VENOUS BLOOD SPECIMEN Ordering Facility: [facility] Address: [facility] [place] [address] Performed By: #### 2 4344-4 #### [facility] CLIA [id number] [address] [place] [address] [place] Body temperature 209.3 [degF] Normal [facility] Comment on above: Order Comment: Speci men Type: VENOUS BLOOD SPECIMEN Ordering Facility: [facility] Address: [facility] [place] [address] Performed By: #### 2 4344-4 #### [facility] CLIA [id number] [address] [place] [address] [place] Calcium.ionized (Bld) [Mass/Vol] 1.11 mmol/L Normal 1.08-1.30 [facility] Comment on above: Order Comment: Speci men Type: VENOUS BLOOD SPECIMEN Ordering Facility: [facility] Address: [facility] [place] [address] Performed By: #### 2 4344-4 #### [facility] CLIA [id number] [address] [place] [address] [place] Carboxyhemoglobin (BldV) [Mass fraction] 0.5 % Normal 0.0-2.0 [facility] Comment on above: Order Comment: Speci men Type: VENOUS BLOOD SPECIMEN Ordering Facility: [facility] Address: [address] [place] [address] Result Comment: Carb oxyhemoglobin Reference Range for Smokers: 2.0-8.0% Performed By: #### 2 4344-4 #### [facility] CLIA [id number] [address] [place] [address] [place] CO2 (BldV) [Partial pressure] 23 mm[Hg] Low 42-55 [facility] Comment on above: Order Comment: Speci men Type: VENOUS BLOOD SPECIMEN Ordering Facility: [facility] Address: [address] [place] [address] Performed By: #### 2 4344-4 #### [facility] CLIA [id number] [address] [place] [address] [place] CO2 adjusted to patient's actual temperature (BldV) [Partial pressure] Normal [facility] Comment on above: Order Comment: Speci men Type: VENOUS BLOOD SPECIMEN Ordering Facility: [facility] Address: [address] [place] [address] Performed By: #### 2 4344-4 #### [facility] CLIA [id number] [address] [place] [address] [place] Glucose [Mass/Vol] 261 mg/dL High 60-105 [facility] Comment on above: Order Comment: Speci men Type: VENOUS BLOOD SPECIMEN Ordering Facility: [facility] Address: [address] [place] [address] Performed By: #### 2 4344-4 #### [facility] CLIA [id number] [address] [place] [address] [place] HCO3 (Bld) [Moles/Vol] 15 mmol/L Low 24-28 [facility] Comment on above: Order Comment: Speci men Type: VENOUS BLOOD SPECIMEN Ordering Facility: [facility] Address: [address] [place] [address] Performed By: #### 2 4344-4 #### [facility] CLIA [id number] [address] [place] [address] [place] Hemoglobin (Bld) [Mass/Vol] 12.4 g/dL Low 13.0-17.0 [facility] Comment on above: Order Comment: Speci men Type: VENOUS BLOOD SPECIMEN Ordering Facility: [facility] Address: [address] [place] [address] Performed By: #### 2 4344-4 #### [facility] CLIA [id number] [address] [place] [address] [place] Lactate [Moles/Vol] 3.3 mmol/L High 0.5-2.2 [facility] Comment on above: Order Comment: Speci men Type: VENOUS BLOOD SPECIMEN Ordering Facility: [facility] Address: [address] [place] [address] Performed By: #### 2 4344-4 #### [facility] CLIA [id number] [address] [place] [address] [place] Methemoglobin (Bld) [Mass fraction] 0.2 % Normal 0.0-1.5 [facility] Comment on above: Order Comment: Speci men Type: VENOUS BLOOD SPECIMEN Ordering Facility: [facility] Address: [address] [place] [address] Performed By: #### 2 4344-4 #### [facility] CLIA [id number] [address] [place] [address] [place] O2 THERAPY Ventilator Normal [facility] Comment on above: Order Comment: Speci men Type: VENOUS BLOOD SPECIMEN Ordering Facility: [facility] Address: [address] [place] [address] Performed By: #### 2 4344-4 #### [facility] CLIA [id number] [address] [place] [address] [place] Oxygen (BldV) [Partial pressure] 123 mm[Hg] High 35-45 [facility] Comment on above: Order Comment: Speci men Type: VENOUS BLOOD SPECIMEN Ordering Facility: [facility] Address: [address] [place] [address] Performed By: #### 2 4344-4 #### [facility] CLIA [id number] [address] [place] [address] [place] Oxygen adjusted to patient's actual temperature (BldV) [Partial pressure] Normal [facility] Comment on above: Order Comment: Speci men Type: VENOUS BLOOD SPECIMEN Ordering Facility: [facility] Address: [address] [place] [address] Performed By: #### 2 4344-4 #### [facility] CLIA [id number] [address] [place] [address] [place] Oxyhemoglobin (BldV) [Mass fraction] 97 % Normal 4-98 [facility] Comment on above: Order Comment: Speci men Type: VENOUS BLOOD SPECIMEN Ordering Facility: [facility] Address: [address] [place] [address] Performed By: #### 2 4344-4 #### [facility] CLIA [id number] [address] [place] [address] [place] pH (BldV) 7.45 [pH] High 7.32-7.42 [facility] Comment on above: Order Comment: Speci men Type: VENOUS BLOOD SPECIMEN Ordering Facility: [facility] Address: [address] [place] [address] Performed By: #### 2 4344-4 #### [facility] CLIA [id number] [address] [place] [address] [place] pH adjusted to patient's actual temperature (BldV) Normal [facility] Comment on above: Order Comment: Speci men Type: VENOUS BLOOD SPECIMEN Ordering Facility: [facility] Address: [address] [place] [address] Performed By: #### 2 4344-4 #### [facility] CLIA [id number] [address] [place] [address] [place] Potassium [Moles/Vol] 3.8 mmol/L Normal 2.5-6.0 [facility] Comment on above: Order Comment: Speci men Type: VENOUS BLOOD SPECIMEN Ordering Facility: [facility] Address: [address] [place] [address] Performed By: #### 2 4344-4 #### [facility] CLIA [id number] [address] [place] [address] [place] Sodium [Moles/Vol] 135 mmol/L Low 136-144 [facility] Comment on above: Order Comment: Speci josephnie Type: VENOUS BLOOD SPECIMEN Ordering Facility: [facility] Address: [address] [place] [address] Performed By: #### 2 4344-4 #### [facility] CLIA [id number] [address] [place] [address] [place] HBV core Ab Ser Qlon 024 HBV core Ab Ql (S) Non-Reactive Normal Nonreactive [facility] Comment on above: Order Comment: Speci men Type: BLOOD SPECIMEN Ordering Facility: [facility] Address: [address] [place] [address] Result Comment: Resu lts were obtained with the [employer] IM IgM assay. Values obtained with different manufactures' assay methods may not be used interchangeably. Performed By: #### L [id number], 86395-9 #### [facility] CLIA [id number] [address] [place] [address] [place] HBV surface Ab Ql (S)on 01-10 HBV surface Ab Qn (S) <3.10 [facility] Comment on above: Order Comment: Speci men Type: BLOOD SPECIMEN Ordering Facility: [facility] Address: [address] [place] [address] Result Comment: STAT US OF IMMUNITY Protective Immunity: greater than or equal to 10 mIU/mL (Traceable to WHO International Reference Preparation) No Protective Immunity: less than 10 mIU/mL Note: The magnitude of the measured result above the cutoff is not indicative of the total amount of antibody present. Performed By: #### L [id number], 88386-1 #### [facility] CLIA [id number] [address] [place] [address] [place] HBV surface Ab Ser Qlon 01-10 HBV surface Ab Ql (S) Negative [facility] Comment on above: Order Comment: Moses burton Type: BLOOD SPECIMEN Ordering Facility: [facility] Address: [address] [place] [address] Result Comment: No s erological evidence of immunity to Hepatitis B Virus. Performed By: #### L [id number], 82401-5 #### [facility] CLIA [id number] [address] [place] [address] [place] HBV surface Ag Ser Qlon 01-10 HBV surface Ag Ql (S) Non-Reactive Normal Equivocal, Nonreactive [facility] Comment on above: Order Comment: Moses josephine Type: BLOOD SPECIMEN Ordering Facility: [facility] Address: [address] [place] [address] Result Comment: Resu lts were obtained with the [employer] IM IgM assay. Values obtained with different manufactures' assay methods may not be used interchangeably. Performed By: #### L [id number], 78608-9 #### [facility] CLIA [id number] [address] [place] [address] [place] HCV Ab Ser Qlon 02-07-2024 HCV Ab Ql (S) Non-Reactive Normal Nonreactive [facility] Comment on above: Order Comment: Moses josephine Type: BLOOD SPECIMEN Ordering Facility: [facility] Address: [address] [place] [address] Result Comment: Scre ening test negative Nonreactive HCV Antibody Screen is consistent with no HCV infection, unless recent infection is suspected or other evidence exists to indicate HCV infection. Results were obtained with the [employer] IM IgG assay. Values obtained with different manufactures' assay methods may not be used interchangeably. Performed By: #### L [id number], 83717-2 #### [facility] CLIA [id number] [address] [place] [address] [place] HIGH SENSITIVITY TROPONIN Io n 02-07-2024 Tropinin I.cardiac panel High sensitivity method 87.6 pg/mL High 0.0-54.0 [facility] Comment on above: Order Comment: Moses josephine Type: BLOOD SPECIMEN Ordering Facility: [facility] Address: [address] [place] [address] Result Comment: CRIT ICAL Performed By: #### [place], [address]28-9, 71718-1 #### [facility] CLIA [id number] [address] [place] [address] [place] Tropinin I.cardiac panel High sensitivity method 106.1 pg/mL High 0.0-54.0 [facility] Comment on above: Order Comment: Speci men Type: BLOOD SPECIMEN Ordering Facility: [facility] Address: [address] [place] [address] Result Comment: CRIT ICAL Performed By: #### L [id number], 91819-2 #### [facility] CLIA [id number] [address] [place] [address] [place] Tropinin I.cardiac panel High sensitivity method 85.5 pg/mL High 0.0-54.0 [facility] Comment on above: Order Comment: Speci men Type: VENOUS BLOOD SPECIMEN Ordering Facility: [facility] Address: [address] [place] [address] Result Comment: CRIT ICAL Performed By: #### 2 4344-4 #### [facility] CLIA [id number] [address] [place] [address] OF [place] Tropinin I.cardiac panel High sensitivity method 77.6 pg/mL High 0.0-54.0 [facility] Comment on above: Order Comment: Speci men Type: BLOOD SPECIMEN Ordering Facility: [facility] Address: [address] [place] [address] Result Comment: CRIT ICAL Performed By: #### 5 5454-3 #### [facility] CLIA [id number] [address] [place], [place] [address] [address] [place] #### 40153-4 #### [facility] CLIA [id number] [address] [place] [address] [place] HIV 1+2 Ab IA Qlon 4 HIV 1+2 Ab+HIV1 p24 Ag IA Ql Non-Reactive Normal Nonreactive [facility] Comment on above: Order Comment: Speci men Type: BLOOD SPECIMEN Ordering Facility: [facility] Address: [address] [place] [address] Result Comment: Nonr eactive: Less than 1.0 index value Specimens with an index value <1.0 are considered nonreactive for antibodies to HIV-1, HIV-2, and p24 antigen by the [employer] IM CHIV assay. Performed By: #### 5 5454-3 #### [facility] CLIA [id number] [address] [place] [address] STATES OF [facility] #### 99342-6 #### [facility] CLIA [id number] [address] [place], [place] [address] [place] Lactate (Bld) [Moles/Vol]on 02-07-2024 Lactate [Moles/Vol] 2.0 mmol/L Normal 0.4-2.0 [facility] Comment on above: Order Comment: Speci men Type: BLOOD SPECIMEN Ordering Facility[facility] Address: [address] [place] [address] Performed By: #### B HB, 93459-0, 61520-4 #### [facility] CLIA [id number] [address] [place] [address] [place] Lactate [Moles/Vol] 1.6 mmol/L Normal 0.4-2.0 [facility] Comment on above: Order Comment: Speci men Type: BLOOD SPECIMEN Ordering Facility: [facility] Address: [address] [place] [address] Performed By: #### L [id number], 54040-4 #### [facility] CLIA [id number] [address] [place] [address] [place] Lactate [Moles/Vol] 2.9 mmol/L High 0.4-2.0 [facility] Comment on above: Order Comment: Speci men Type: VENOUS BLOOD SPECIMEN Ordering Facility: [facility] Address: [address] [place] [address] Performed By: #### 2 4344-4 #### [facility] CLIA [id number] [address] [place] [address] [place] Legionella Ag Ur Qlon 2023 Legionella sp Ag Ql (U) Negative Normal Negative [facility] Comment on above: Order Comment: Speci men Type: VENOUS BLOOD SPECIMEN Ordering Facility: [facility] Address: [address] [place] [address] Performed By: #### 2 4344-4 #### [facility] CLIA [id number] [address] [place] [address] [place] Lipase SerPl-cCncon 02-07-20 Lipase [Catalytic activity/Vol] 15 U/L Normal 12-60 [facility] Comment on above: Order Comment: Speci men Type: BLOOD SPECIMEN Ordering Facility[facility] Address: [address] [place] [address] Performed By: #### 5 5454-3 #### [facility] CLIA [id number] [address] [place] [address] [place] #### 61463-3 #### [facility] CLIA [id number] [address] [place] [address] [place] Magnesium SerPl-mCncon 02-06 Magnesium [Mass/Vol] 1.7 mg/dL Normal 1.6-2.6 [facility] Comment on above: Order Comment: Speci men Type: BLOOD SPECIMEN Order[facility] Facility[facility] Address: [address] [place] [address] Performed By: #### L [id number], 64501-6 #### [facility] CLIA [id number] [address] [place] [address] [place] PT panel Coag (PPP)on 2023 INR Coag (PPP) [Relative time] 1.1 {INR} Normal 0.9-1.3 [facility] Comment on above: Order Comment: Speci men Type: VENOUS BLOOD SPECIMEN Ordering Facility: [facility] Address: [address] [place] [address] Result Comment: Humaira min K Antagonist (VKA) Therapeutic Range: INR 2 to 3 (Target INR of 2.5) Note: For patients treated with VKA drugs, such as warfarin, the [place] [employer] 2012 Guideline recommends [...] GH, et al. Chest 2012, 141:7S-47S Cinda GRADY et al. [facility] 2017, 70: 252-289 Performed By: #### 2 4344-4 #### [facility] CLIA [id number] [address] [place] [address] [place] PT Coag (PPP) [Time] 12.3 s Normal 9.7-13.0 [facility] Comment on above: Order Comment: Moses burton Type: VENOUS BLOOD SPECIMEN Ordering Facility[facility] Address: [address] [place] [address] Performed By: #### 2 4344-4 #### [facility] CLIA [id number] [address] [place] [address] [place] Phosphate SerPl-mCncon 02-06 Phosphate [Mass/Vol] 0.9 mg/dL Low 2.5-4.9 [facility] Comment on above: Order Comment: Moses burton Type: BLOOD SPECIMEN Ordering Facility[facility] Address: [address] [place], [place] [address] Result Comment: CRIT ICAL Elevated m-protein (paraprotein) levels in the serum may be exhibited in patients with monoclonal gammopathies, causing falsely elevated inorganic phosphorus results. Performed By: #### L [id number], 60657-4 #### [facility] CLIA [id number] [address] [place] [address] [place] Procalcitonin SerPl-mCncon 0 02-07-2024 Procalcitonin [Mass/Vol] 0.52 ng/mL High 0.00-0.50 [facility] Comment on above: Order Comment: Moses burton Type: BLOOD SPECIMEN Order[facility] Address: [address] [place] [address] Result Comment: PCT Concentration Interpretation PCT <=0.1 [...] shock. Performed By: #### 5 5454-3 #### [facility] CLIA [id number] [address] [place] [address] [place] #### 25702-2 #### [facility] CLIA [id number] [address] [place] [address] [place] SEPSIS LACTATE W/ REFLEX (SE COND)on 02-07-2024 Lactate [Moles/Vol] 6.8 mmol/L High 0.4-2.0 [facility] Comment on above: Order Comment: Moses burton Type: BLOOD SPECIMEN [facility] Address: [address] [place] [address] Result Comment: CRIT ICAL Performed By: #### 5 5454-3 #### [facility] CLIA [id number] [address] [place] [address] [place] #### 22564-7 #### [facility] CLIA [id number] [address] [place] [address] [place] STAPHYLOCOCCUS AUREUS AND MR SA SCREEN, PCR, NASALon 02-07-2024 S. aureus and MRSA panel VAISHALI+probe (Nose) Methicillin-SUSCEPTIBLE Staphylococcus aureus Detected Abnormal Not Detected [facility] Comment on above: Order Comment: Speci men Type: BLOOD SPECIMEN Ordering Facility[facility] Address: [address] [place] [address] Performed By: #### 5 5454-3 #### [facility] CLIA [id number] [address] [facility] [place] [address] [place] #### 56130-8 #### [facility] CLIA [id number] [facility] [place] [address] [place] STREPTOCOCCUS PNEUMONIAE ANT IGEN URINEon 02-07-2024 STREPTOCOCCUS PNEUMONIAE ANTIGEN URINE STREP PNEUMO AG RESULT: Negative for Streptococcus pneumoniae antigen. Presumptive negative for pneumococcal pneumonia, suggesting no current or recent pneumococcal infection. Infection due to S.pneumoniae cannot be ruled out since the antigen present in the sample may be below the detection limit of the test. Normal [facility] Comment on above: Performed By: #### 2 4344-4 #### [facility] CLIA [id number] [facility] [place] [address] [place] THERAPY NTon 02-07-2024 THERAPY NT HNO ID: [id number] Author: JUNIOR KULKARNI RRT Service: Respiratory Therapy Author Type: Registered Resp Therapist Type: Therapy (PT/OT/Speech/Resp) Filed: 02/07/2024 00:49 Note Text: Summary: Intubation RESPIRATORY THERAPY INTUBATION PROCEDURE NOTE PROCEDURE DATE: February 07, 2024 PROCEDURE START TIME: 0025 INFORMED CONSENT: Due to emergent situation informed consent was not obtained OROTRACHEAL INTUBATION Indication: Airway Protection Sedation: Yes, See Code Blue/[place] Paper Form or MAR Equipment Available: Endotracheal tube, size 8 mm and Video Laryngoscope [place] Scope The patient was administered supplemental oxygen [...] February 07, 2024 TIME: 12:47 AM Normal [facility] TSH SerPl-aCncon 02-07-2024 TSH Qn 73.494 m[IU]/L High 0.358-3.740 [facility] Comment on above: Order Comment: Moses burton Type: BLOOD SPECIMEN [facility] Address: [address] [place] [address] Result Comment: 3rd generation ultra sensitive TSH. Performed By: #### 5 5454-3 #### [facility] CLIA [id number] [address] [place], [place] [address] [place] [address] [place] #### 20035-5 #### [facility] CLIA [id number] [facility] [place] [address] [place] Trigl SerPl-mCncon 4 Triglyceride [Mass/Vol] 408 mg/dL High 30-149 [facility] Comment on above: Order Comment: Moses burton Type: BLOOD SPECIMEN Ordering [facility] Address: [address] [place] [address] Result Comment: <150 mg/dL, Normal 150-199 mg/dL, Borderline high 200-499 mg/dL, High >499 mg/dL, Very high Reference: 1. National Cholesterol Education Program ATP III Guideline At-A-Glance Quick Desk Reference: National Heart, Lung, and Blood [place]. National Institutes of Health. 2001: NIH Publication No. 01-3305. Patients receiving either N-Acetylcysteine (NAC) or Metamizole prior to venipuncture, may have falsely depressed results. Performed By: #### 5 5454-3 #### [facility] CLIA [id number] [address] [place] [address] #### 19958-2 #### [facility] [facility] CLIA [id number] [address] [place] [address] [place] Triglyceride [Mass/Vol]on FASTING TIME unknown Normal [facility] Comment on above: Order Comment: Speci men Type: BLOOD SPECIMEN Ordering Facility: [facility] Address: [address] [place] [address] Performed By: #### 5 5454-3 #### [facility] CLIA [id number] [address] [place] [address] #### 21256-7 #### [facility] CLIA [id number] [address] [place] [address] [place] US ABD LIVER VASCULARon 07-3 US ABD LIVER VASCULAR * * *Final Report* * * DATE OF EXAM: Feb 07 2024 8:30PM [facility] 1233 - US ABD LIVER VASCULAR / [...] trace pericholecystic fluid. No cholelithiasis. Nonenlarged spleen. Cage Cashier: PSCB Transcribe Date/Time: Feb 08 2024 4:30P Dictated by : DULCE MARIA INFANTE MD This examination was interpreted and the report reviewed and electronically signed by: DULCE MARIA INFANTE MD on Feb 08 2024 4:49PM EST [id number] Normal [facility] US ELASTROGRAPHY LIVERon US ELASTROGRAPHY LIVER * * *Final Report* * * DATE OF EXAM: Feb 07 2024 7:30PM U 1199 - US ELASTROGRAPHY LIVER / PROCEDURE [...] trace pericholecystic fluid. No cholelithiasis. Nonenlarged spleen. Cage Cashier: BOYD Transcribe Date/Time: Feb 08 2024 4:30P Dictated by : DULCE MARIA INFANTE MD This examination was interpreted and the report reviewed and electronically signed by: DULCE MARIA INFANTE MD on Feb 08 2024 4:49PM EST [id number] Normal [facility] Urinalysis complete panel (U )on 02-07-2024 Bacteria LM.HPF (Urine sed) [#/Area] None Seen Normal None Seen [facility] Comment on above: Order Comment: Speci men Type: BLOOD SPECIMEN Ordering Facility: [facility] Address: [address] [place] [address] Performed By: #### 5 5454-3 #### [facility] CLIA [id number] [address] [place] [address] [place] #### 26392-2 #### [facility] CLIA [id number] [address] [place] [address] [place] Bilirubin Ql (U) Negative Normal Negative [facility] Comment on above: Order Comment: Speci men Type: BLOOD SPECIMEN Ordering Facility: [facility] Address: [address] [place] [address] Performed By: #### 5 5454-3 #### [facility] CLIA [id number] [address] [place] [address] [place] #### 55344-3 #### [facility] CLIA [id number] [address] [place] [address] [place] Clarity (Unsp spec) Clear Normal Clear [facility] Comment on above: Order Comment: Speci men Type: BLOOD SPECIMEN Ordering Facility: [facility] Address: [address] [place] [address] Performed By: #### 5 5454-3 #### [facility] CLIA [id number] [address] [place] [address] [place] #### 05059-8 #### [facility] CLIA [id number] [address] [place] [address] [place] Color (U) Yellow Normal Yellow [facility] Comment on above: Order Comment: Speci men Type: BLOOD SPECIMEN Ordering Facility: [facility] Address: [address] [place] [address] Performed By: #### 5 5454-3 #### [facility] CLIA [id number] [address] [place] [address] [place] #### 77281-8 #### [facility] CLIA [id number] [address] [place] [address] [place] Epithelial cells LM.HPF (Urine sed) [#/Area] None Seen Normal [facility] Comment on above: Order Comment: Speci men Type: BLOOD SPECIMEN Ordering Facility: [facility] Address: [address] [place] [address] Performed By: #### 5 5454-3 #### [facility] CLIA [id number] [address] [place] [address] [place] #### 41814-6 #### [facility] CLIA [id number] [address] [place] [address] [place] Glucose Test strip (U) [Mass/Vol] 3+ Abnormal Negative [facility] Comment on above: Order Comment: Speci men Type: BLOOD SPECIMEN Ordering Facility: [facility] Address: [address] [place] [address] Performed By: #### 5 5454-3 #### [facility] CLIA [id number] [address] [place] [address] [place] #### 83163-5 #### [facility] CLIA [id number] [address] [place] [address] [place] Granular casts (Urine sed) [#/Area] 4-10 /LPF Abnormal 0 /LPF [facility] Comment on above: Order Comment: Speci men Type: BLOOD SPECIMEN Ordering Facility: [facility] Address: [address] [place] [address] Performed By: #### 5 5454-3 #### [facility] CLIA [id number] [address] [place] [address] [place] #### 86564-2 #### [facility] CLIA [id number] [address] [place], [place] [address] [place] Hemoglobin Ql (U) 2+ Abnormal Negative [facility] Comment on above: Order Comment: Speci men Type: BLOOD SPECIMEN Ordering Facility: [facility] Address: [address] [place] [address] Performed By: #### 5 5454-3 #### [facility] CLIA [id number] [address] [place] [address] [place] #### 79183-6 #### [facility] CLIA [id number] [address] [place] [address] [place] Ketones Ql (U) 2+ Abnormal Negative [facility] Comment on above: Order Comment: Speci men Type: BLOOD SPECIMEN Ordering Facility: [facility] Address: [address] [place] [address] Performed By: #### 5 5454-3 #### [facility] CLIA [id number] [address] [place] [address] [place] #### 97885-3 #### [facility] CLIA [id number] [address] [place] [address] [place] Leukocyte esterase Test strip Ql (U) Negative Normal Negative [facility] Comment on above: Order Comment: Speci men Type: BLOOD SPECIMEN Ordering Facility: [facility] Address: [address] [place] [address] Performed By: #### 5 5454-3 #### [facility] CLIA [id number] [address] [place] [address] [place] #### 04209-6 #### [facility] CLIA [id number] [address] [place], [place] [address] [place] Nitrite Ql (U) Negative Normal Negative [facility] Comment on above: Order Comment: Speci men Type: BLOOD SPECIMEN Ordering Facility: [facility] Address: [address] [place] [address] Performed By: #### 5 5454-3 #### [facility] CLIA [id number] [address] [place] [address] [place] #### 89500-6 #### [facility] CLIA [id number] [address] [place] [address] [place] pH (U) 5.0 [pH] Normal 5.0-8.0 [facility] Comment on above: Order Comment: Speci men Type: BLOOD SPECIMEN Ordering Facility: [facility] Address: [address] [place] [address] Performed By: #### 5 5454-3 #### [facility] CLIA [id number] [address] [place] [address] [place] #### 93286-2 #### [facility] CLIA [id number] [address] [place] [address] [place] Protein (U) [Mass/Vol] 1+ Abnormal Negative [facility] Comment on above: Order Comment: Speci men Type: BLOOD SPECIMEN Ordering Facility: [facility] Address: [address] [place] [address] Performed By: #### 5 5454-3 #### [facility] CLIA [id number] [address] [place] [address] [place] #### 98523-1 #### [facility] CLIA [id number] [address] [place] [address] [place] RBC LM.HPF (Urine sed) [#/Area] 0-3 /HPF Normal 0-3 /HPF [facility] Comment on above: Order Comment: Speci men Type: BLOOD SPECIMEN Ordering Facility: [facility] Address: [address] [place] [address] Performed By: #### 5 5454-3 #### [facility] CLIA [id number] [address] [place] [address] [place] #### 67434-2 #### [facility] CLIA [id number] [address] [place] [address] [place] Specific gravity (U) [Rel density] 1.021 Normal 1.005-1.030 [facility] Comment on above: Order Comment: Speci men Type: BLOOD SPECIMEN Ordering Facility: [facility] Address: [address] [place] [address] Performed By: #### 5 5454-3 #### [facility] CLIA [id number] [address] [place] [address] [place] #### 70118-6 #### [facility] CLIA [id number] [address] [place] [address] [place] Urobilinogen Ql (U) Negative Normal Negative [facility] Comment on above: Order Comment: Speci men Type: BLOOD SPECIMEN Ordering Facility: [facility] Address: [address] [place] [address] Performed By: #### 5 5454-3 #### [facility] CLIA [id number] [address] [place] [address] [place] #### 87637-8 #### [facility] CLIA [id number] [address] [place] [address] [place] WBC LM.HPF (Urine sed) [#/Area] 0-5 /HPF Normal 0-5 /HPF [facility] Comment on above: Order Comment: Speci men Type: BLOOD SPECIMEN Ordering Facility: [facility] Address: [address] [place] [address] Performed By: #### 5 5454-3 #### [facility] CLIA [id number] [address] [place] [address] [place] #### 19323-6 #### [facility] CLIA [id number] [address] [place] [address] [place] XR ABDOMEN 1V [...] Evaluate tube, line, or lead position (accession [id number]), Evaluate tube, line or lead position (accession [id number]) MQ: XCPR_5 Comparison: 02/07/2024 RESULT: Lines, tubes, [...] enteric tube terminates within the proximal stomach. Cage Cashier: PSCB Transcribe Date/Time: Feb 07 2024 7:11A Dictated by : RICHARD GARCIAS MD This examination was interpreted and the report reviewed and electronically signed by: RICAHRD GARCIAS MD on Feb 07 2024 7:13AM EST [id number] Normal [facility] XR ABDOMEN 1V SUPINE * * *Final [...] Evaluate tube, line or lead position (accession [id number]), Evaluate tube, line, or lead position (accession [id number]) DISCUSSION: Limited due to portable technique/rotation and [...] findings. IMPRESSION: Lines and tubes, as above. Cage Cashier: [employer] Transcribe Date/Time: Feb 07 2024 2:11A Dictated by : BRANDY ANDERS MD This examination was interpreted and the report reviewed and electronically signed by: BRANDY ANDERS MD on Feb 07 2024 2:17AM EST [id number] Normal [facility] XR CHEST 1V FRONTALon 2023 XR [...] Evaluate tube, line or lead position (accession [id number]), Evaluate tube, line, or lead position (accession [id number]) DISCUSSION: Limited due to portable technique/rotation and [...] findings. IMPRESSION: Lines and tubes, as above. Cage Cashier: [employer] Transcribe Date/Time: Feb 07 2024 2:11A Dictated by : BRANDY ANDERS MD This examination was interpreted and the report reviewed and electronically signed by: BRANDY ANDERS MD on Feb 07 2024 2:17AM EST [id number] [facility] XR CHEST 1V FRONTAL PORTon 0 02-07-2024 [...] Evaluate tube, line, or lead position (accession [id number]), Evaluate tube, line or lead position (accession [id number]) MQ: XCPR_5 Comparison: 02/07/2024 RESULT: Lines, tubes, [...] enteric tube terminates within the proximal stomach. Cage Cashier: PSCB Transcribe Date/Time: Feb 07 2024 7:11A Dictated by : RICHARD GARCIAS MD This examination was interpreted and the report reviewed and electronically signed by: RICHARD GARCIAS MD on Feb 07 2024 7:13AM EST [id number] [facility] aPTT PPPon 02-07-2024 aPTT Coag (PPP) [Time] 25.0 s Normal 23.0-32.4 [facility] Comment on above: Order Comment: Speci men Type: VENOUS BLOOD SPECIMEN Ordering Facility: [facility] Address: [address] [place] [address] Performed By: #### 2 4344-4 #### [facility] CLIA [id number] [address] [place] [address] B-HYDROXYBUTYRATEon 02-06-20 24 Beta hydroxybutyrate [Moles/Vol] >6.00 High 0.02-0.27 [facility] Comment on above: Order Comment: Speci men Type: BLOOD SPECIMEN Ordering Facility: [facility] Address: [address] [place] [address] Result Comment: Bloo d ketone levels will vary depending on several factors (for example, food intake, alcohol intake and conditions such as ketoacidosis). Patients should be fasting 12 hours prior to collection. Patient samples with high levels of M-Protein (i.e. Gammopathy) may affect the accuracy of this assay. Performed By: #### [place], 75528-6, 46884-5 #### [facility] CLIA [id number] [address] [place] [address] [place] CBC W Auto Differential pane l (Bld)on 02-06-2024 Basophils (Bld) [#/Vol] 0.08 10*3/uL Normal <0.11 [facility] Comment on above: Order Comment: Speci men Type: BLOOD SPECIMEN Ordering Facility: [facility] Address: [address] [place] [address] Performed By: #### 5 5454-3 #### [facility] CLIA [id number] [address] [place] [address] [id number] [place] [address] [place] #### 93760-8 #### [facility] CLIA [id number] [address] [place] [address] [place] Basophils/100 WBC (Bld) 0.7 % Normal [facility] Comment on above: Order Comment: Speci men Type: BLOOD SPECIMEN Ordering Facility: [facility] Address: [address] [place] [address] Performed By: #### 5 5454-3 #### [facility] CLIA [id number] [address] [place] [address] [place] #### 58856-4 #### [facility] CLIA [id number] [address] [place], [place] [address] [place] Differential cell count method Nom (Bld) Auto Normal [facility] Comment on above: Order Comment: Speci men Type: BLOOD SPECIMEN Ordering Facility: [facility] Address: [address] [place] [address] Performed By: #### 5 5454-3 #### [facility] CLIA [id number] [address] [place] [address] [place] #### 85560-4 #### [facility] CLIA [id number] [address] [place] [address] [place] Eosinophils (Bld) [#/Vol] 10*3/uL Normal <0.46 [facility] Comment on above: Order Comment: Speci men Type: BLOOD SPECIMEN Ordering Facility: [facility] Address: [address] [place] [address] Performed By: #### 5 5454-3 #### [facility] CLIA [id number] [address] [place] [address] [place] #### 06554-9 #### [facility] CLIA [id number] [address] [place] [address] [place] Eosinophils/100 WBC (Bld) 0.2 % Normal [facility] Comment on above: Order Comment: Speci men Type: BLOOD SPECIMEN Ordering Facility: [facility] Address: [address] [place] [address] Performed By: #### 5 5454-3 #### [facility] CLIA [id number] [address] [place] [address] [place] #### 29594-0 #### [facility] CLIA [id number] [address] [place] [address] [place] Erythrocyte distribution width (RBC) [Ratio] 14.8 % Normal 11.5-15.0 [facility] Comment on above: Order Comment: Speci men Type: BLOOD SPECIMEN Ordering Facility: [facility] Address: [address] [place] [address] Performed By: #### 5 5454-3 #### [facility] CLIA [id number] [address] [place] [address] [place] #### 47040-9 #### [facility] CLIA [id number] [address] [place] [address] [place] Hematocrit (Bld) [Volume fraction] 43.5 % Normal 39.0-51.0 [facility] Comment on above: Order Comment: Speci men Type: BLOOD SPECIMEN Ordering Facility: [facility] Address: [address] [place] [address] Performed By: #### 5 5454-3 #### [facility] CLIA [id number] [address] [place] [address] [place] #### 17295-9 #### [facility] CLIA [id number] [address] [place] [address] [place] Hemoglobin (Bld) [Mass/Vol] 14.4 g/dL Normal 13.0-17.0 [facility] Comment on above: Order Comment: Speci men Type: BLOOD SPECIMEN Ordering Facility[facility] Address: [address] [place] [address] Performed By: #### 5 5454-3 #### [facility] CLIA [id number] [address] [place] [address] [place] #### 46721-1 #### [facility] CLIA [id number] [address] [place] [address] [place] Immature granulocytes (Bld) [#/Vol] 0.20 10*3/uL High <0.10 [facility] Comment on above: Order Comment: Speci men Type: BLOOD SPECIMEN Order[facility] Facility[facility] Address: [address] [place] [address] Performed By: #### 5 5454-3 #### [facility] CLIA [id number] [address] [place] [address] [place] #### 20903-7 #### [facility] CLIA [id number] [address] [place] [address] [place] Immature granulocytes/100 WBC (Bld) 1.8 % Normal [facility] Comment on above: Order Comment: Speci men Type: BLOOD SPECIMEN Ordering Facility[facility] Address: [address] [place] [address] Performed By: #### 5 5454-3 #### [facility] CLIA [id number] [address] [place] [address] [place] #### 37981-2 #### [facility] CLIA [id number] [address] [place] [address] [place] Lymphocytes (Bld) [#/Vol] 1.47 10*3/uL Normal 1.00-4.00 [facility] Comment on above: Order Comment: Speci men Type: BLOOD SPECIMEN Order[facility] Address: [address] [place] [address] Performed By: #### 5 5454-3 #### [facility] CLIA [id number] [address] [place] [address] [place] #### 12936-0 #### [facility] CLIA [id number] [address] [place], [place] [address] [place] Lymphocytes/100 WBC (Bld) 12.9 % Normal [facility] Comment on above: Order Comment: Speci men Type: BLOOD SPECIMEN Ordering Facility[facility] Address: [address] [place] [address] Performed By: #### 5 5454-3 #### [facility] CLIA [id number] [address] [place] [address] [place] #### 64674-4 #### [facility] CLIA [id number] [address] [place] [address] [place] MCH (RBC) [Entitic mass] 31.2 pg Normal 26.0-34.0 [facility] Comment on above: Order Comment: Speci men Type: BLOOD SPECIMEN Ordering [facility] Address: [address] [place] [address] Performed By: #### 5 5454-3 #### [facility] CLIA [id number] [address] [place] [address] [place] #### 71273-4 #### [facility] CLIA [id number] [address] [place] [address] [place] MCHC (RBC) [Mass/Vol] 33.1 g/dL Normal 30.5-36.0 [facility] Comment on above: Order Comment: Speci men Type: BLOOD SPECIMEN Ordering Facility[facility] Address: [address] [place] [address] Performed By: #### 5 5454-3 #### [facility] CLIA [id number] [address] [place] [address] [place] #### 52556-4 #### [facility] CLIA [id number] [address] [place] [address] [place] MCV (RBC) [Entitic vol] 94.4 fL Normal 80.0-100.0 [facility] Comment on above: Order Comment: Speci men Type: BLOOD SPECIMEN Ordering [facility] Address: [address] [place] [address] Performed By: #### 5 5454-3 #### [facility] CLIA [id number] [address] [place] [address] [place] #### 28131-1 #### [facility] CLIA [id number] [address] [place] [address] [place] Monocytes (Bld) [#/Vol] 1.35 10*3/uL High <0.87 [facility] Comment on above: Order Comment: Speci men Type: BLOOD SPECIMEN Ordering Facility: [facility] Address: [address] [place] [address] Performed By: #### 5 5454-3 #### [facility] CLIA [id number] [address] [place] [address] [place] #### 64849-3 #### [facility] CLIA [id number] [address] [place] [address] [place] Monocytes/100 WBC (Bld) 11.8 % Normal [facility] Comment on above: Order Comment: Speci men Type: BLOOD SPECIMEN Ordering Facility[facility] Address: [address] [place] [address] Performed By: #### 5 5454-3 #### [facility] CLIA [id number] [address] [place] [address] [place] #### 25119-0 #### [facility] CLIA [id number] [address] [place] [address] [place] Neutrophils (Bld) [#/Vol] 8.29 10*3/uL High 1.45-7.50 [facility] Comment on above: Order Comment: Speci men Type: BLOOD SPECIMEN Ordering Facility: [facility] Address: [address] [place] [address] Performed By: #### 5 5454-3 #### [facility] CLIA [id number] [address] [place] [address] [place] #### 28371-9 #### [facility] CLIA [id number] [address] [place] [address] [place] Neutrophils/100 WBC (Bld) 72.6 % Normal [facility] Comment on above: Order Comment: Speci men Type: BLOOD SPECIMEN Ordering Facility: [facility] Address: [address] [place] [address] Performed By: #### 5 5454-3 #### [facility] CLIA [id number] [address] [place] [address] [place] #### 68080-3 #### [facility] CLIA [id number] [address] [place] [address] [place] Nucleated RBC (Bld) [#/Vol] 10*3/uL Normal <0.01 [facility] Comment on above: Order Comment: Speci men Type: BLOOD SPECIMEN Ordering Facility[facility] Address: [address] [place] [address] Performed By: #### 5 5454-3 #### [facility] CLIA [id number] [address] [place] [address] [place] #### 34861-1 #### [facility] CLIA [id number] [address] [place] [address] [place] Nucleated RBC/100 WBC (Bld) [Ratio] 0.0 /100 WBC Normal [facility] Comment on above: Order Comment: Speci men Type: BLOOD SPECIMEN Ordering Facility[facility] Address: [address] [place] [address] Performed By: #### 5 5454-3 #### [facility] CLIA [id number] [address] [place] [address] [place] #### 81329-4 #### [facility] CLIA [id number] [address] [place] [address] [place] Platelet mean volume (Bld) [Entitic vol] 9.8 fL Normal 9.0-12.7 [facility] Comment on above: Order Comment: Speci men Type: BLOOD SPECIMEN Ordering Facility: [facility] Address: [address] [place] [address] Performed By: #### 5 5454-3 #### [facility] CLIA [id number] [address] [place] [address] [place] #### 50685-9 #### [facility] CLIA [id number] [address] [place] [address] [place] Platelets (Bld) [#/Vol] 256 10*3/uL Normal 150-400 [facility] Comment on above: Order Comment: Speci men Type: BLOOD SPECIMEN [facility]ing Facility: [facility] Address: [address] [place] [address] Performed By: #### 5 5454-3 #### [facility] CLIA [id number] [address] [place] [address] OF [place] #### 33295-8 #### [facility] CLIA [id number] [address] [place] [address] [place] RBC (Bld) [#/Vol] 4.61 10*6/uL Normal 4.20-6.00 [facility] Comment on above: Order Comment: Speci men Type: BLOOD SPECIMEN Ordering Facility: [facility] Address: [address] [place] [address] Performed By: #### 5 5454-3 #### [facility] CLIA [id number] [address] [place] [address] [place] [facility] OF [place] #### 82922-8 #### [facility] CLIA [id number] [address] [place] [address] [place] WBC (Bld) [#/Vol] 11.41 10*3/uL High 3.70-11.00 [facility] Comment on above: Order Comment: Speci men Type: BLOOD SPECIMEN Ordering Facility: [facility] Address: [address] [place] [address] Performed By: #### 5 5454-3 #### [facility] CLIA [id number] [address] [place], [place] [address] [place] [address] [place] #### 97096-8 #### [facility] CLIA [id number] [address] [place], [place] [address] [place] Comprehensive metabolic 2000 panelon 02-06-2024 Albumin [Mass/Vol] 3.4 g/dL Normal 3.2-5.0 [facility] Comment on above: Order Comment: Speci men Type: BLOOD SPECIMEN Ordering Facility: [facility] Address: [address] [place] [address] Performed By: #### B [place], 77510-8, 74473-6 #### [facility] CLIA [id number] [address] [place] [address] [place] ALP [Catalytic activity/Vol] 129 U/L High 45-117 [facility] Comment on above: Order Comment: Speci men Type: BLOOD SPECIMEN Ordering Facility: [facility] Address: [address] [place] [address] Performed By: #### B HB, , 20589-5 #### [facility] CLIA [id number] [address] [place] [address] [place] ALT [Catalytic activity/Vol] 25 U/L Normal 13-61 [facility] Comment on above: Order Comment: Speci men Type: BLOOD SPECIMEN Ordering Facility: [facility] Address: [address] [place] [address] Result Comment: Resu lts may be falsely depressed after the administration of Sulfasalazine and/or Sulfapyridine. Performed By: #### B HB, , 70863-5 #### [facility] CLIA [id number] [address] [place] [address] [place] Anion gap [Moles/Vol] 27 mmol/L High 5-16 [facility] Comment on above: Order Comment: Speci men Type: BLOOD SPECIMEN Ordering Facility: [facility] Address: [address] [place] [address] Performed By: #### B HB, , #### [facility] CLIA [id number] [address] [place] [address] [place] AST [Catalytic activity/Vol] 28 U/L Normal 8-34 [facility] Comment on above: Order Comment: Speci men Type: BLOOD SPECIMEN Ordering Facility: [facility] Address: [address] [place] [address] Result Comment: Resu lts may be falsely depressed after the administration of Sulfasalazine and/or Sulfapyridine. Performed By: #### B HB, , #### [facility] CLIA [id number] [address] [place] [address] [place] Bilirubin [Mass/Vol] 0.8 mg/dL Normal 0.2-1.0 [facility] Comment on above: Order Comment: Speci men Type: BLOOD SPECIMEN Ordering Facility: [facility] Address: [address] [place] [address] Performed By: #### B HB, , #### [facility] CLIA [id number] [address] [place] [address] [place] Calcium [Mass/Vol] 9.9 mg/dL Normal 8.5-10.5 [facility] Comment on above: Order Comment: Speci men Type: BLOOD SPECIMEN Ordering Facility: [facility] Address: [address] [place] [address] Performed By: #### B HB, , #### [facility] CLIA [id number] [address] [place], [place] [address] [place] Chloride [Moles/Vol] 97 mmol/L Low 98-107 [facility] Comment on above: Order Comment: Speci men Type: BLOOD SPECIMEN Ordering Facility: [facility] Address: [address] [place] [address] Performed By: #### B HB, , #### [facility] CLIA [id number] [address] [place] [address] [place] CO2 [Moles/Vol] 5 mmol/L Low 21-32 [facility] Comment on above: Order Comment: Speci men Type: BLOOD SPECIMEN Ordering Facility: [facility] Address: [address] [place] [address] Performed By: #### B HB, , #### [facility] CLIA [id number] [address] [place] [address] [place] Creatinine [Mass/Vol] 1.10 mg/dL Normal 0.50-1.40 [facility] Comment on above: Order Comment: Speci men Type: BLOOD SPECIMEN Ordering Facility: [facility] Address: [address] [place] [address] Result Comment: Desiree ents receiving either N-Acetylcysteine (NAC) or Metamizole prior to venipuncture, may have falsely depressed results. Performed By: #### B HB, , #### [facility] CLIA [id number] [address] [place] [address] [place] Creatinine and Glomerular filtration rate.predicted panel (S/P/Bld) 85 mL/min/1.73m??? Normal >=60 [facility] Comment on above: Order Comment: Speci men Type: BLOOD SPECIMEN Ordering Facility: [facility] Address: [address] [place] [address] Result Comment: Rosanna mated Glomerular Filtration Rate [...] Performed By: #### B HB, , #### [facility] CLIA [id number] [address] [place] [address] [place] Glucose [Mass/Vol] 556 mg/dL High 70-100 [facility] Comment on above: Order Comment: Moses burton Type: BLOOD SPECIMEN Ordering Facility: [facility] Address: [address] [place] [address] Result Comment: The [place] Diabetes Association (ADA) provides guidance for cutoff [...] Standards of Medical Care in Diabetes 2016, [place] [employer] Association. Diabetes Care. 2016.39(Suppl 1). CRITICAL Results may be falsely elevated after the administration of Sulfapyridine. Results may be falsely depressed after the administration of Sulfasalazine. Performed By: #### B HB, , #### [facility] CLIA [id number] [address] [place] [address] [place] Potassium [Moles/Vol] 6.0 mmol/L High 3.5-5.1 [facility] Comment on above: Order Comment: Moses burton Type: BLOOD SPECIMEN Ordering Facility: [facility] Address: [address] [place] [address] Result Comment: CRIT ICAL Performed By: #### B HB, , #### [facility] CLIA [id number] [address] [place] [address] [place] Protein [Mass/Vol] 6.4 g/dL Normal 6.0-8.5 [facility] Comment on above: Order Comment: Moses burton Type: BLOOD SPECIMEN Ordering Facility: [facility] Address: [address] [place] [address] Performed By: #### B HB, , #### [facility] CLIA [id number] [address] [place] [address] [place] [facility] Sodium [Moles/Vol] 129 mmol/L Low 136-145 [facility] Comment on above: Order Comment: Speci men Type: BLOOD SPECIMEN Ordering Facility: [facility] Address: [address] [place], [place] [address] Performed By: #### B HB, 17373-3, 30255-3 #### [facility] CLIA [id number] [address] [place], [place] [address] [place] Urea nitrogen [Mass/Vol] 14 mg/dL Normal 02-02 [facility] Comment on above: Order Comment: Speci men Type: BLOOD SPECIMEN Ordering Facility: [facility] Address: [address] [place] [address] Performed By: #### B HB, 54727-1, 58071-2 #### [facility] CLIA [id number] [address] [place], [place] [address] [facility] ECG COMPLETEon 02-06-2024 ECG COMPLETE Ventricular Rate : 1 07 BPM Atrial Rate : 107 BPM P-R Interval : 146 ms QRS Duration : 94 ms Q-T Interval : 358 ms QTC Calculation(Bazett) : 477 ms Calculated P [place] : 72 degrees Calculated R [place] : 89 degrees Calculated T [place] : 44 degrees Sinus tachycardia Possible Left atrial enlargement Borderline ECG No previous ECGs available Confirmed by AMARJIT JONES MD ([id number]) on 02/07/2024 5:12:58 PM NAME : LUISITO ZHONG PID : [id number] : 1980 Gender : Male Race : Unknown ORD : [id number] Procedure Date : Feb 06 2024 20:23:22 Edit Date : Feb 07 2024 17:13:00 Diagnosis: Sinus tachycardia Possible Left atrial enlargement Borderline ECG No previous ECGs available Confirmed by AMARJIT JONES MD ([id number]) on 02/07/2024 5:12:58 PM Test Reason : stat Location : 0 : ED EDH42 Overread By : AMARJIT JONES MD Edited By : AMARJIT JONES MD Referred By : , Acquired by : [id number], Normal [facility] ED NOTEon 02-06-2024 ED NOTE HNO ID: [id number] Author: JOSELINE ALMENDAREZ, ROXANA Service: Emergency Medicine Author Type: Registered Nurse Type: ED Notes Filed: 02/06/2024 20:13 Note Text: Pt blood sugar 549 [facility] ED NOTE HNO ID: [id number] Author: LEROY THOMSON RN Service: ? Author Type: Registered Nurse Type: ED Notes Filed: 02/06/2024 19:54 Note Text: Bed: 42-ED Expected date: Expected time: [facility] of [facility]: [facility] ED PROV NOTEon 02-06-2024 ED PROV NOTE HNO ID: [id number] Author: WALTER MAHER DO Service: Emergency Medicine Author Type: Physician [...] ROS: Acuity of condition Physical Exam Vitals [02/06/24 1945] BP Pulse Temp Temp src Resp SpO2 [...] 8.29 (*) 1.45 - 7.50 k/uL Abs Kidder 1.35 (*) <0.87 k/uL Abs Immature Gran [...] Clinical Impressio (more content not included)... Normal [facility] FLUABV+SARS-CoV-2+RSV Pnl Re sp VAISHALI+probeon 02-06-2024 FLUABV+SARS-CoV-2+RS V Pnl Resp VAISHALI+probe COVID 19 RESULT: Not detected The method used is RT-PCR or an equivalent NAAT method. Reference Range(the expected result in uninfected individuals): Not detected INFLUENZA A PCR: Not detected INFLUENZA B PCR: Not detected RSV PCR: Not detected Normal [facility] Comment on above: Performed By: #### 6 0566-7, 51482-0 ####[facility] [id number] [place] [address] [place] Gas and Carbon monoxide pane l (BldV)on 02-06-2024 BASE DEFICIT, VENOUS -25 mmol/L Low -2-0 [facility] Comment on above: Order Comment: Speci men Type: VENOUS BLOOD SPECIMENOrdering Facility: [facility] Address: [address] [place] [address] Performed By: #### 2 4344-4 ####[facility] THERAPYCLIA [id number] [place] [id number] [place] Body temperature 98.06 [degF] Normal [facility] Comment on above: Order Comment: Speci men Type: VENOUS BLOOD SPECIMENOrdering Facility: [facility] Address: [address] [place] [address] Performed By: #### 2 4344-4 ####[facility] THERAPYCLIA [id number] [address] STATES [place] Calcium.ionized (Bld) [Mass/Vol] 1.21 mmol/L Normal 1.08-1.30 [facility] Comment on above: Order Comment: Speci men Type: VENOUS BLOOD SPECIMENOrdering Facility: [facility] Address: [address] [place] [address] Performed By: #### 2 4344-4 ####[facility] THERAPYCLIA [id number] [address] [place] Calcium.ionized adjusted to pH 7.4 (BldA) [Moles/Vol] Normal [facility] Comment on above: Order Comment: Speci men Type: VENOUS BLOOD SPECIMENOrdering Facility: [facility] Address: [address] [place] [address] Result Comment: Jake ured pH is <7.20. Unable to report normalized Calcium. Performed By: #### 2 4344-4 ####[facility] THERAPYCLIA [id number] [address] STATES [place] Carboxyhemoglobin (BldV) [Mass fraction] 0.3 % Normal 0.0-2.0 [facility] Comment on above: Order Comment: Speci men Type: VENOUS BLOOD SPECIMENOrdering Facility: [facility] Address: [address] [place] [address] Result Comment: Carb oxyhemoglobin Reference Range for Smokers: 2.0-8.0% Performed By: #### 2 4344-4 ####[facility] [id number] [address] CO2 (BldV) [Partial pressure] 15 mm[Hg] Low 42-55 [facility] Comment on above: Order Comment: Speci men Type: VENOUS BLOOD SPECIMENOrdering Facility: [facility] Address: [address] [place] [address] Performed By: #### 2 4344-4 ####[facility] [id number] [address] CO2 adjusted to patient's actual temperature (BldV) [Partial pressure] Normal [facility] Comment on above: Order Comment: Speci men Type: VENOUS BLOOD SPECIMENOrdering Facility: [facility] Address: [address] [place] [address] Performed By: #### 2 4344-4 ####[facility] [id number] [address] STATES [place] Glucose [Mass/Vol] 559 mg/dL High 60-105 [facility] Comment on above: Order Comment: Speci men Type: VENOUS BLOOD SPECIMENOrdering Facility: [facility] Address: [address] [place] [address] Performed By: #### 2 4344-4 ####[facility] THERAPYCLIA [id number] [place] [address] [place] HCO3 (Bld) [Moles/Vol] 4 mmol/L Low 24-28 [facility] Comment on above: Order Comment: Speci men Type: VENOUS BLOOD SPECIMENOrdering Facility: [facility] Address: [address] [place] [address] Performed By: #### 2 4344-4 ####[facility] TH[facility]CL[facility] [id number] [place] [address] [place] Hemoglobin (Bld) [Mass/Vol] 14.1 g/dL Normal 13.0-17.0 [facility] Comment on above: Order Comment: Speci men Type: VENOUS BLOOD SPECIMENOrdering Facility: [facility] Address: [address] [place] [address] Performed By: #### 2 4344-4 ####[facility] THERAP[facility] [id number] [address] STATES [place] Lactate [Moles/Vol] 6.3 mmol/L High 0.5-2.2 [facility] Comment on above: Order Comment: Speci men Type: VENOUS BLOOD SPECIMENOrdering Facility: [facility] Address: [address] [place] [address] Performed By: #### 2 4344-4 ####[facility] THERAPYCLIA [id number] [address] OF [place] Methemoglobin (Bld) [Mass fraction] 0.1 % Normal 0.0-1.5 [facility] Comment on above: Order Comment: Speci men Type: VENOUS BLOOD SPECIMENOrdering Facility: [facility] Address: [address] [place] [address] Performed By: #### 2 4344-4 ####[facility] THERAPYCLIA [id number] [address] O2 THERAPY RA=Room Air Normal [facility] Comment on above: Order Comment: Speci men Type: VENOUS BLOOD SPECIMENOrdering Facility: [facility] Address: [address] [place] [address] Performed By: #### 2 4344-4 ####[facility] TH[facility]CLIA [id number] [place] [address] [place] [facility] OF [place] Oxygen (BldV) [Partial pressure] 68 mm[Hg] High 35-45 [facility] Comment on above: Order Comment: Speci men Type: VENOUS BLOOD SPECIMENOrdering Facility: [facility] Address: [address] [place] [address] Performed By: #### 2 4344-4 ####[facility] THERAPYCLIA [id number] [place] [address] [place] Oxygen adjusted to patient's actual temperature (BldV) [Partial pressure] Normal [facility] Comment on above: Order Comment: Speci men Type: VENOUS BLOOD SPECIMENOrdering Facility: [facility] Address: [address] [place] [address] Performed By: #### 2 4344-4 ####[facility] TH[facility] [id number] [place] [id number] [place] Oxyhemoglobin (BldV) [Mass fraction] 87 % Normal 4-98 [facility] Comment on above: Order Comment: Speci men Type: VENOUS BLOOD SPECIMENOrdering Facility: [facility] Address: [address] [place] [address] Performed By: #### 2 4344-4 ####[facility] THERAPYCLIA [id number] [address] OF [place] pH (BldV) 7.03 [pH] Critically low 7.32-7.42 [facility] Comment on above: Order Comment: Speci men Type: VENOUS BLOOD SPECIMENOrdering Facility: [facility] Address: [address] [place] [address] Performed By: #### 2 4344-4 ####[facility] THERAPYCLIA [id number] [address] pH adjusted to patient's actual temperature (BldV) Normal [facility] Comment on above: Order Comment: Speci men Type: VENOUS BLOOD SPECIMENOrdering Facility: [facility] Address: [address] [place] [address] Performed By: #### 2 4344-4 ####[facility] TH[facility]AP[facility] [id number] [place] [address] [place] Potassium [Moles/Vol] 5.7 mmol/L Normal 2.5-6.0 [facility] Comment on above: Order Comment: Speci men Type: VENOUS BLOOD SPECIMENOrdering Facility: [facility] Address: [address] [place] [address] Performed By: #### 2 4344-4 ####[facility] TH[facility]APYCL[facility] [id number] [place] [address] [place] Sodium [Moles/Vol] 132 mmol/L Low 136-144 [facility] Comment on above: Order Comment: Speci men Type: VENOUS BLOOD SPECIMENOrdering Facility: [facility] Address: [address] [place] [address] Performed By: #### 2 4344-4 ####[facility] [id number] [place] [address] [place] BASE DEFICIT, VENOUS -21 mmol/L Low -2-0 [facility] Comment on above: Order Comment: Speci men Type: VENOUS BLOOD SPECIMEN [facility] Address: [address] [place] [address] Performed By: #### 2 4344-4 #### [facility] CLIA [id number] [address] [place] [address] [place] Body temperature 98.06 [degF] Normal [facility] Comment on above: Order Comment: Speci men Type: VENOUS BLOOD SPECIMEN [facility] Address: [address] [place] [address] Performed By: #### 2 4344-4 #### [facility] CLIA [id number] [address] [place] [address] OF [place] Calcium.ionized (Bld) [Mass/Vol] 1.17 mmol/L Normal 1.08-1.30 [facility] Comment on above: Order Comment: Speci men Type: VENOUS BLOOD SPECIMEN [facility] Address: [address] [place] [address] Performed By: #### 2 4344-4 #### [facility] CLIA [id number] [address] [place] [address] OF [place] Calcium.ionized adjusted to pH 7.4 (BldA) [Moles/Vol] Normal [facility] Comment on above: Order Comment: Speci men Type: VENOUS BLOOD SPECIMEN [facility] Address: [address] [place] [address] Result Comment: Jake ured pH is <7.20. Unable to report normalized Calcium. Performed By: #### 2 4344-4 #### [facility] CLIA [id number] [address] [place] [address] [place] Carboxyhemoglobin (BldV) [Mass fraction] 0.9 % Normal 0.0-2.0 [facility] Comment on above: Order Comment: Speci men Type: VENOUS BLOOD SPECIMEN [facility] Address: [address] [place] [address] Result Comment: Carb oxyhemoglobin Reference Range for Smokers: 2.0-8.0% Performed By: #### 2 4344-4 #### [facility] CLIA [id number] [address] [place] [address] [place] CO2 (BldV) [Partial pressure] 20 mm[Hg] Low 42-55 [facility] Comment on above: Order Comment: Speci men Type: VENOUS BLOOD SPECIMEN [facility] Address: [address] [place] [address] Performed By: #### 2 4344-4 #### [facility] CLIA [id number] [address] [place] [address] [place] CO2 adjusted to patient's actual temperature (BldV) [Partial pressure] Normal [facility] Comment on above: Order Comment: Speci men Type: VENOUS BLOOD SPECIMEN [facility] Address: [address] [place] [address] Performed By: #### 2 4344-4 #### [facility] CLIA [id number] [address] [place] [address] [place] Glucose [Mass/Vol] 555 mg/dL High 60-105 [facility] Comment on above: Order Comment: Speci men Type: VENOUS BLOOD SPECIMEN [facility] Address: [address] [place] [address] Performed By: #### 2 4344-4 #### [facility] CLIA [id number] [address] [place] [address] [place] HCO3 (Bld) [Moles/Vol] 6 mmol/L Low 24-28 [facility] Comment on above: Order Comment: Speci men Type: VENOUS BLOOD SPECIMEN [facility] Address: [address] [place] [address] Performed By: #### 2 4344-4 #### [facility] CLIA [id number] [address] [place] [address] [place] Hemoglobin (Bld) [Mass/Vol] 15.5 g/dL Normal 13.0-17.0 [facility] Comment on above: Order Comment: Speci men Type: VENOUS BLOOD SPECIMEN [facility] Address: [address] [place] [address] Performed By: #### 2 4344-4 #### [facility] CLIA [id number] [address] [place] [address] [place] Lactate [Moles/Vol] 4.7 mmol/L High 0.5-2.2 [facility] Comment on above: Order Comment: Speci men Type: VENOUS BLOOD SPECIMEN [facility] Address: [address] [place] [address] Performed By: #### 2 4344-4 #### [facility] CLIA [id number] [address] [place] [address] [place] Methemoglobin (Bld) [Mass fraction] 0.3 % Normal 0.0-1.5 [facility] Comment on above: Order Comment: Speci men Type: VENOUS BLOOD SPECIMEN [facility] Address: [address] [place] [address] Performed By: #### 2 4344-4 #### [facility] CLIA [id number] [address] [place] [address] [place] O2 THERAPY RA=Room Air Normal [facility] Comment on above: Order Comment: Speci men Type: VENOUS BLOOD SPECIMEN [facility] Address: [address] [place] [address] Performed By: #### 2 4344-4 #### [facility] CLIA [id number] [address] [place] [address] [place] Oxygen (BldV) [Partial pressure] 32 mm[Hg] Low 35-45 [facility] Comment on above: Order Comment: Speci men Type: VENOUS BLOOD SPECIMEN [facility] Address: [address] [place] [address] [place] [address] Performed By: #### 2 4344-4 #### [facility] CLIA [id number] [address] [place] [address] [place] Oxygen adjusted to patient's actual temperature (BldV) [Partial pressure] Normal [facility] Comment on above: Order Comment: Speci men Type: VENOUS BLOOD SPECIMEN Ordering Facility: [facility] Address: [address] [place] [address] Performed By: #### 2 4344-4 #### [facility] CLIA [id number] [address] [place] [address] [place] Oxyhemoglobin (BldV) [Mass fraction] 50 % Normal 4-98 [facility] Comment on above: Order Comment: Speci men Type: VENOUS BLOOD SPECIMEN Ordering Facility: [facility] Address: [address] [place] [address] Performed By: #### 2 4344-4 #### [facility] CLIA [id number] [address] [place] [address] [place] pH (BldV) 7.13 [pH] Critically low 7.32-7.42 [facility] Comment on above: Order Comment: Speci men Type: VENOUS BLOOD SPECIMEN Ordering Facility: [facility] Address: [address] [place] [address] Performed By: #### 2 4344-4 #### [facility] CLIA [id number] [address] [place] [address] [place] pH adjusted to patient's actual temperature (BldV) Normal [facility] Comment on above: Order Comment: Speci men Type: VENOUS BLOOD SPECIMEN Ordering Facility: [facility] Address: [address] [place] [address] Performed By: #### 2 4344-4 #### [facility] CLIA [id number] [address] [place] [address] [place] Potassium [Moles/Vol] 6.2 mmol/L Critically high 2.5-6.0 [facility] Comment on above: Order Comment: Speci men Type: VENOUS BLOOD SPECIMEN Ordering Facility: [facility] Address: [address] [place] [address] Performed By: #### 2 4344-4 #### [facility] CLIA [id number] [address] [place] [address] [place] Sodium [Moles/Vol] 130 mmol/L Low 136-144 [facility] Comment on above: Order Comment: Speci men Type: VENOUS BLOOD SPECIMEN Ordering Facility: [facility] Address: [address] [place] [address] Performed By: #### 2 4344-4 #### [facility] CLIA [id number] [address] [place] [address] [place] HIGH SENSITIVITY TROPONIN I (INITIAL)on 02-06-2024 Tropinin I.cardiac panel High sensitivity method 89.2 pg/mL High 0.0-54.0 [facility] Comment on above: Order Comment: Speci men Type: BLOOD SPECIMEN Ordering Facility: [facility] Address: [address] [place] [address] Result Comment: CRIT ICAL Performed By: #### L [id number], 27792-5 #### [facility] CLIA [id number] [address] [place] [address] [place] HIGH SENSITIVITY TROPONIN I (SECOND)on 02-06-2024 Tropinin I.cardiac panel High sensitivity method 78.4 pg/mL High 0.0-54.0 [facility] Comment on above: Order Comment: Speci men Type: BLOOD SPECIMENOrdering Facility: [facility] Address: [address] [place] [address] Result Comment: CRIT ICAL Performed By: #### H STROPI2 ####[facility] [id number] [place] [address] [place] HISTORY PHYSICALon HISTORY PHYSICAL HNO ID: [id number] Author: SALTY JOSEPH APRN.QAMAR Service: Critical Care Author Type: Nurse Practitioner Type: H&P Filed: 02/07/2024 04:03 Note Text: [facility] SERVICE DATE: [...] 89, B-hydroxybutyrate >6, and WBC 11.4. VBG 7.13/20/6. Urine tox screen positive for cocaine. VBG was repeated 7.03/15/4. Lactic was repeated and worsened to 6.3. [...] equally Ventilator Settings: ABG: VBG: Recent Labs 02/06/24215602/06/242013 VPC2 15* 20* VPO2C 68* 32* BICARB [...] 1,001* ASSES (more content not included)... Normal [facility] HbA1c (Bld)on 02-06-2024 Average glucose Estimated from glycated hemoglobin (Bld) [Mass/Vol] 237 mg/dL Normal [facility] Comment on above: Order Comment: Moses burton Type: BLOOD SPECIMEN [facility] Address: [address] [place] [address] Result Comment: eAG: (Estimated average glucose) is a calculated value from HgbA1c and is community health program representative of the average blood glucose level in the last 2-3 month period. Performed By: #### 5 5454-3 #### [facility] CLIA [id number] [address] [place] [address] [place] #### 24406-0 #### [facility] CLIA [id number] [facility] [place] [address] [place] HbA1c (Bld) [Mass fraction] 9.9 % High 4.3-5.6 [facility] Comment on above: Order Comment: Moses burton Type: BLOOD SPECIMEN Ordering Facility: [facility] Address: [address] [place] [address] Result Comment: [place] Diabetes Association guidelines indicate that patients with HgbA1c in the range 5.7-6.4% are at increased risk for development of diabetes, and intervention by lifestyle modification may be beneficial. HgbA1c greater or equal to 6.5% is considered diagnostic of diabetes. Performed By: #### 5 5454-3 #### [facility] CLIA [id number] [address] [place] [address] [place] [address] [place] #### 90627-8 #### [facility] CLIA [id number] [address] [place] [address] [place] [facility] Magnesium [Mass/Vol] 2.1 mg/dL Normal 1.6-2.6 [facility] Comment on above: Order Comment: Moses burton Type: BLOOD SPECIMEN [facility] Address: [address] [place] [address] Performed By: #### B [place], 06867-2, 97716-7 #### [facility] CLIA [id number] [address] [place] [address] [place] [facility] Natriuretic peptide.B prohormone N-Terminal [Mass/Vol] 1001 pg/mL High <125 [facility] Comment on above: Order Comment: Moses [facility] Type: BLOOD SPECIMEN Ordering [facility] Address: [address] [place] [address] Result Comment: NT-p roBNP results of less than 300 pg/mL likely rules out acute congestive heart failure with 99% predictive value. NOTE: These cutoff points are suggested for ACUTE CHF DIAGNOSIS only Less than 50 years\X09\ Greater than 450 pg/mL 50 - 75 years\X09\\X09\ Greater than 900 pg/mL Greater than 75 years\X09\ Greater than 1800 pg/mL Performed By: #### L AQ5143, 32737-2 #### [facility] CLIA [id number] [address] [place] [address] [place] Resp path 12b [...] Not detected MYCOPLASMA PNEUMONIAE: Not detected Normal [facility] Comment on above: Performed By: #### 6 0566-7, 91633-3 ####[facility] [id number] [address] OF [place] SEPSIS LACTATE W/ REFLEX (IN ITIAL)on 02-06-2024 Lactate [Moles/Vol] 6.7 mmol/L High 0.4-2.0 [facility] Comment on above: Order Comment: Speci men Type: BLOOD SPECIMENOrdering Facility: [facility] Address: [address] [place] [address] Result Comment: CRIT ICAL Performed By: #### S LACTR ####[facility]IA [id number] [place] [address] [place] TOXICOLOGY SCREEN, ROUTINE U RINEon 02-06-2024 Amphetamines Confirm (U) [Mass/Vol] Negative Normal Negative [facility] Comment on above: Order Comment: Speci men Type: URINE SPECIMENOrdering Facility: [facility] Address: [address] [place] [address] Result Comment: Cuto ff threshold at 1000 ng/mL. Performed By: #### U TOX2 ####[facility]ORY[facility]IA [id number] [place] [address] [place] BARBITURATES, URINE Negative Normal Negative [facility] Comment on above: Order Comment: Speci men Type: URINE SPECIMENOrdering Facility: [facility] Address: [address] [place] [address] Result Comment: Cuto ff threshold at 200 ng/mL. Performed By: #### U TOX2 ####[facility]ORYCLIA [id number] [place] [address] [place] BENZODIAZEPINES, UR Negative Normal Negative [facility] Comment on above: Order Comment: Speci men Type: URINE SPECIMENOrdering Facility: [facility] Address: [address] [place] [address] Result Comment: Cuto ff threshold at 200 ng/mL. Performed By: #### U TOX2 ####[facility]ORY[facility]IA [id number] [place] [address] [place] Cannabinoids Screen Ql (U) Negative Normal Negative [facility] Comment on above: Order Comment: Speci men Type: URINE SPECIMENOrdering Facility: [facility] Address: [address] [place] [address] Result Comment: Cuto ff threshold at 50 ng/mL. Performed By: #### U TOX2 ####[facility]ORYCLIA [id number] [place] [address] [place] Cocaine Ql (U) Positive Abnormal Negative [facility] Comment on above: Order Comment: Speci men Type: URINE SPECIMENOrdering Facility: [facility] Address: [address] [place] [address] Result Comment: Cuto ff threshold at 300 ng/mL. Performed By: #### U TOX2 ####[facility]ORYCLIA [id number] [place] [address] [place] Opiates Screen Ql (U) Negative Normal Negative [facility] Comment on above: Order Comment: Speci men Type: URINE SPECIMENOrdering Facility: [facility] Address: [address] [place] [address] Result Comment: Cuto ff threshold at 300 ng/mL. Performed By: #### U TOX2 ####[facility]ORYCLIA [id number] [address] Phencyclidine Ql (U) Negative Normal Negative [facility] Comment on above: Order Comment: Speci men Type: URINE SPECIMENOrdering Facility: [facility] Address: [address] [place] [address] Result Comment: Cuto ff threshold at 25 ng/mL. Performed By: #### U TOX2 ####[facility]ORYCLIA [id number] [address] Urinalysis complete panel (U )on 02-06-2024 Bacteria LM.HPF (Urine sed) [#/Area] None Seen Normal None Seen [facility] Comment on above: Order Comment: Speci men Type: URINE SPECIMENOrdering Facility: [facility] Address: [address] [place] [address] Performed By: #### 2 4356-8 ####[facility]ORYCLIA [id number] [address] OF [facility] Bilirubin Ql (U) Negative Normal Negative [facility] Comment on above: Order Comment: Speci men Type: URINE SPECIMENOrdering Facility: [facility] Address: [address] [place] [address] Performed By: #### 2 4356-8 ####[facility]ORYCLIA [id number] [address] OF [place] Clarity (Unsp spec) Clear Normal Clear [facility] Comment on above: Order Comment: Speci men Type: URINE SPECIMENOrdering Facility: [facility] Address: [address] [place] [address] Performed By: #### 2 4356-8 ####[facility]ORYCLIA [id number] [address] [place] Color (U) Straw Normal Yellow [facility] Comment on above: Order Comment: Speci men Type: URINE SPECIMENOrdering Facility: [facility] Address: [address] [place] [address] Performed By: #### 2 4356-8 ####[facility]ORYCLIA [id number] [place] [address] [place] [facility] OF [place] Epithelial cells LM.HPF (Urine sed) [#/Area] Few Normal [facility] Comment on above: Order Comment: Speci men Type: URINE SPECIMENOrdering Facility: [facility] Address: [address] [place] [address] Performed By: #### 2 4356-8 ####[facility]ORYCLIA [id number] [address] OF [place] Glucose Test strip (U) [Mass/Vol] 3+ Abnormal Negative [facility] Comment on above: Order Comment: Speci men Type: URINE SPECIMENOrdering Facility: [facility] Address: [address] [place] [address] Performed By: #### 2 4356-8 ####[facility]ORYCLIA [id number] [place] [address] [place] Hemoglobin Ql (U) 1+ Abnormal Negative [facility] Comment on above: Order Comment: Speci men Type: URINE SPECIMENOrdering Facility: [facility] Address: [address] [place] [address] Performed By: #### 2 4356-8 ####[facility]ORYCLIA [id number] [place] [address] [place] Ketones Ql (U) 2+ Abnormal Negative [facility] Comment on above: Order Comment: Speci men Type: URINE SPECIMENOrdering Facility: [facility] Address: [address] [place] [address] Performed By: #### 2 4356-8 ####[facility]ORYCLIA [id number] [place] [address] [place] Leukocyte esterase Test strip Ql (U) Negative Normal Negative [facility] Comment on above: Order Comment: Speci men Type: URINE SPECIMENOrdering Facility: [facility] Address: [address] [place] [address] Performed By: #### 2 4356-8 ####[facility]ORYCLIA [id number] [place] [id number] [place] Nitrite Ql (U) Negative Normal Negative [facility] Comment on above: Order Comment: Speci men Type: URINE SPECIMENOrdering Facility: [facility] Address: [address] [place] [address] Performed By: #### 2 4356-8 ####[facility]ORYCLIA [id number] [place] [address] [place] pH (U) 5.0 [pH] Normal 5.0-8.0 [facility] Comment on above: Order Comment: Speci men Type: URINE SPECIMENOrdering Facility: [facility] Address: [address] [place] [address] Performed By: #### 2 4356-8 ####[facility]ORYCLIA [id number] [place] [address] [place] Protein (U) [Mass/Vol] Negative Normal Negative [facility] Comment on above: Order Comment: Speci men Type: URINE SPECIMENOrdering Facility: [facility] Address: [address] [place] [address] Performed By: #### 2 4356-8 ####[facility]ATORYIA [id number] [place] [address] [place] RBC LM.HPF (Urine sed) [#/Area] 0-3 /HPF Normal 0-3 /HPF [facility] Comment on above: Order Comment: Speci men Type: URINE SPECIMENOrdering Facility: [facility] Address: [address] [place] [address] Performed By: #### 2 4356-8 ####[facility]ORYCLIA [id number] [place] [id number] [place] Specific gravity (U) [Rel density] 1.024 Normal 1.005-1.030 [facility] Comment on above: Order Comment: Speci men Type: URINE SPECIMENOrdering Facility: [facility] Address: [address] [place] [address] Performed By: #### 2 4356-8 ####[facility]ORYCLIA [id number] [address] [place] Urobilinogen Ql (U) Negative Normal Negative [facility] Comment on above: Order Comment: Speci men Type: URINE SPECIMENOrdering Facility: [facility] Address: [address] [place] [address] Performed By: #### 2 4356-8 ####[facility]ORYCLIA [id number] [address] OF [place] WBC LM.HPF (Urine sed) [#/Area] 0-5 /HPF Normal 0-5 /HPF [facility] Comment on above: Order Comment: Speci men Type: URINE SPECIMENOrdering Facility: [facility] Address: [address] [place] [address] Performed By: #### 2 4356-8 ####[facility]ORYCLIA [id number] [place] [address] [place] Bacteria LM.HPF (Urine sed) [#/Area] Rare Abnormal None Seen [facility] Comment on above: Order Comment: Speci men Type: URINE SPECIMENOrdering Facility: [facility] Address: [address] [place] [address] Performed By: #### 2 4356-8 ####[facility]ORYCLIA [id number] [place] [address] [place] Bilirubin Ql (U) Negative Normal Negative [facility] Comment on above: Order Comment: Speci men Type: URINE SPECIMENOrdering Facility: [facility] Address: [address] [place] [address] Performed By: #### 2 4356-8 ####[facility]ORYCLIA [id number] [address] [place] Clarity (Unsp spec) Clear Normal Clear [facility] Comment on above: Order Comment: Speci men Type: URINE SPECIMENOrdering Facility: [facility] Address: [address] [place] [address] Performed By: #### 2 4356-8 ####[facility]ORYCLIA [id number] [place] [address] [place] Color (U) Straw Normal Yellow [facility] Comment on above: Order Comment: Speci men Type: URINE SPECIMENOrdering Facility: [facility] Address: [address] [place] [address] Performed By: #### 2 4356-8 ####[facility]ORYCLIA [id number] [address] Epithelial cells LM.HPF (Urine sed) [#/Area] None Seen Normal [facility] Comment on above: Order Comment: Speci men Type: URINE SPECIMENOrdering Facility: [facility] Address: [address] [place] [address] Performed By: #### 2 4356-8 ####[facility]ORYCLIA [id number] [address] [place] Glucose Test strip (U) [Mass/Vol] 3+ Abnormal Negative [facility] Comment on above: Order Comment: Speci men Type: URINE SPECIMENOrdering Facility: [facility] Address: [address] [place] [address] Performed By: #### 2 4356-8 ####[facility]ORYCLIA [id number] [place] [address] [place] Hemoglobin Ql (U) 1+ Abnormal Negative [facility] Comment on above: Order Comment: Speci men Type: URINE SPECIMENOrdering Facility: [facility] Address: [address] [place] [address] Performed By: #### 2 4356-8 ####[facility]ORYCLIA [id number] [place] [address] [place] Ketones Ql (U) 2+ Abnormal Negative [facility] Comment on above: Order Comment: Speci men Type: URINE SPECIMENOrdering Facility: [facility] Address: [address] [place] [address] Performed By: #### 2 4356-8 ####[facility]ORYCLIA [id number] [address] Leukocyte esterase Test strip Ql (U) 2+ Abnormal Negative [facility] Comment on above: Order Comment: Speci men Type: URINE SPECIMENOrdering Facility: [facility] Address: [address] [place] [address] Performed By: #### 2 4356-8 ####[facility]ORYCLIA [id number] [place] [address] [place] Nitrite Ql (U) Negative Normal Negative [facility] Comment on above: Order Comment: Speci men Type: URINE SPECIMENOrdering Facility: [facility] Address: [address] [place] [address] Performed By: #### 2 4356-8 ####[facility]ORYCLIA [id number] [place] [address] [place] pH (U) 5.0 [pH] Normal 5.0-8.0 [facility] Comment on above: Order Comment: Speci men Type: URINE SPECIMENOrdering Facility: [facility] Address: [address] [place] [address] Performed By: #### 2 4356-8 ####[facility]ORYCLIA [id number] [address] [place] Protein (U) [Mass/Vol] Negative Normal Negative [facility] Comment on above: Order Comment: Speci men Type: URINE SPECIMENOrdering Facility: [facility] Address: [address] [place] [address] Performed By: #### 2 4356-8 ####[facility]ORYCLIA [id number] [place] [address] [place] RBC LM.HPF (Urine sed) [#/Area] 0-3 /HPF Normal 0-3 /HPF [facility] Comment on above: Order Comment: Speci men Type: URINE SPECIMENOrdering Facility: [facility] Address: [address] [place] [address] Performed By: #### 2 4356-8 ####[facility]ORYCLIA [id number] [address] Specific gravity (U) [Rel density] 1.024 Normal 1.005-1.030 [facility] Comment on above: Order Comment: Speci men Type: URINE SPECIMENOrdering Facility: [facility] Address: [address] [place] [address] Performed By: #### 2 4356-8 ####[facility]ORYCLIA [id number] [address] OF [place] Urobilinogen Ql (U) Negative Normal Negative [facility] Comment on above: Order Comment: Speci men Type: URINE SPECIMENOrdering Facility: [facility] Address: [address] [place] [address] Performed By: #### 2 4356-8 ####[facility]ORYCLIA [id number] [address] OF [place] WBC LM.HPF (Urine sed) [#/Area] 0-5 /HPF Normal 0-5 /HPF [facility] Comment on above: Order Comment: Speci men Type: URINE SPECIMENOrdering Facility: [facility] Address: [address] [place] [address] Performed By: #### 2 4356-8 ####[facility]ATORYCLIA [id number] [address] [place] XR CHEST 1V FRONTAL PORTon 0 02-06-2024 [...] in the left midlung may represent infection. Cage Cashier: BOYD Transcribe Date/Time: Feb 06 2024 9:16P Dictated by : DHARMESH AMADOR MD This examination was interpreted and the report reviewed and electronically signed by: DHARMESH AMADOR MD on Feb 06 2024 9:17PM EST [id number] Normal [facility] .Auto Diffon 02-01-2024 Basophil, Absolute 0.0 10 3/mcL Normal 0.0-0.3 [facility] ([place]) Comment on above: Performed By: #### U A, UAMIC #### [address] [address] Basophils/100 WBC (Bld) 0.5 % Normal 0.0-2.5 [facility] ([place]) Comment on above: Performed By: #### U A, UAMIC #### [address] [address] Eosinophil, Absolute 0.2 10 3/mcL Normal 0.0-0.7 [facility] ([place]) Comment on above: Performed By: #### U A, UAMIC #### [address] [address] Eosinophils/100 WBC (Bld) 3.5 % Normal 0.0-6.0 [facility] ([place]) Comment on above: Performed By: #### U A, UAMIC #### [address] [address] Lymphocyte, Absolute 1.4 10 3/mcL Normal 0.9-4.3 [facility] ([place]) Comment on above: Performed By: #### U A, UAMIC #### [address] [address] Lymphocytes/100 WBC (Bld) 22.6 % Normal 20.0-40.0 [facility] ([place]) Comment on above: Performed By: #### U A, UAMIC #### [place] [address] [place] [address] Monocyte, Absolute 0.5 10 3/mcL Normal 0.1-1.4 [facility] ([place]) Comment on above: Performed By: #### U A, UAMIC #### [facility] [address] [place] [address] Monocytes/100 WBC (Bld) 8.3 % Normal 2.0-13.0 [facility] ([place]) Comment on above: Performed By: #### U A, UAMIC #### [facility] [address] [place] [address] Neutrophils/100 WBC (Bld) 65.1 % Normal 50.0-75.0 [facility] ([place]) Comment on above: Performed By: #### U A, UAMIC #### [address] [address] .GFRon 02-01-2024 GFR >60 Normal [facility] ([place]) Comment on above: Result Comment: GFR Population [...] ANEU, CMP, CBC, DRUGS, PHV, ADIFF, TROPHS ####[address] [address] GFR Non- >60 Normal [facility] ([place]) Comment on above: Result Comment: GFR Population [...] ANEU, CMP, CBC, DRUGS, PHV, ADIFF, TROPHS ####[address] [address] .MDWon 02-01-2024 Monocyte Distribution Width 21.89 High 0.00-20.00 [facility] ([place]) Comment on above: Result Comment: For adults in ED, MDW>20.0 may be associated with a higher risk of sepsis during the first 12hrs of hospital admission Performed By: #### M DW, GFR, ANEU, CMP, CBC, DRUGS, PHV, ADIFF, TROPHS ####[place] [address] .NEUABSon 02-01-2024 Neutrophil, Absolute 4.1 10 3/mcL Normal 2.3-8.1 [facility] ([place]) Comment on above: Performed By: #### PAYTON AguilaMIC #### [place] [address] CBCon 02-01-2024 Erythrocyte distribution width (RBC) [Ratio] 15.1 % Normal 11.5-15.5 [facility] ([place]) Comment on above: Performed By: #### Kacie Espinoza UAMIC #### [place] [address] Hematocrit (Bld) [Volume fraction] 41.0 % Normal 40.0-52.0 [facility] ([place]) Comment on above: Performed By: #### Kacie Espinoza UAMIC #### [place] [address] Hgb 14.1 G/dL Normal 13.0-17.5 [facility] ([place]) Comment on above: Performed By: #### Kacie Espinoza UAMIC #### [address] [address] MCH (RBC) [Entitic mass] 31.4 pg Normal 27.0-33.0 [facility] ([place]) Comment on above: Performed By: #### Kacie Espinoza UAMIC #### [address] [address] MCHC 34.3 G/dL Normal 32.0-36.0 [facility] ([place]) Comment on above: Performed By: #### Kacie Espinoza UAMIC #### [place] [id number] MCV (RBC) [Entitic vol] 91.6 fL Normal 81.0-100.0 [facility] ([place]) Comment on above: Performed By: #### PAYTON AguilaMIC #### [place] [address] Platelet 183 10 3/mcL Normal 150-450 [facility] ([place]) Comment on above: Performed By: #### ROSA Aguila #### [place] [address] Platelet mean volume (Bld) [Entitic vol] 7.7 fL Normal 6.4-10.5 [facility] ([place]) Comment on above: Performed By: #### Kacie Espinoza UAMIC #### [place] [address] RBC 4.48 10 6/mcL Low 4.50-6.00 [facility] ([place]) Comment on above: Performed By: #### Kacie Espinoza UAMIC #### [place] [address] WBC 6.3 10 3/mcL Normal 4.5-10.8 [facility] ([place]) Comment on above: Performed By: #### Kacie Espinoza UAMIC #### [place] [id number] CMPon 02-01-2024 Albumin Level 3.5 G/dL Normal 3.2-4.8 [facility] ([place]) Comment on above: Performed By: #### M DW, GFR, ANEU, CMP, CBC, DRUGS, PHV, ADIFF, TROPHS ####[address] [address] Albumin/Globulin [Mass ratio] 1.1 {ratio} Normal 0.9-1.6 [facility] ([place]) Comment on above: Performed By: #### M DW, GFR, ANEU, CMP, CBC, DRUGS, PHV, ADIFF, TROPHS ####[address] [address] ALP [Catalytic activity/Vol] 96 U/L Normal 38-126 [facility] ([place]) Comment on above: Performed By: #### M DW, GFR, ANEU, CMP, CBC, DRUGS, PHV, ADIFF, TROPHS ####[address] [address] ALT [Catalytic activity/Vol] 24 U/L Normal 12-55 [facility] ([place]) Comment on above: Performed By: #### M DW, GFR, ANEU, CMP, CBC, DRUGS, PHV, ADIFF, TROPHS ####[place] [id number] AST [Catalytic activity/Vol] 39 U/L High 8-34 [facility] ([place]) Comment on above: Performed By: #### M DW, GFR, ANEU, CMP, CBC, DRUGS, PHV, ADIFF, TROPHS ####[place] [id number] Bili Total 1.00 mg/dL Normal 0.20-1.20 [facility] ([place]) Comment on above: Result Comment: Use of this assay is not recommended for patients undergoing treatment with eltrombopag due to the potential for falsely elevated results. Performed By: #### M DW, GFR, ANEU, CMP, CBC, DRUGS, PHV, ADIFF, TROPHS ####[place] [id number] BUN/Creatinine Ratio 13.8 ratio Normal 10.0-22.0 [facility] ([place]) Comment on above: Performed By: #### M DW, GFR, ANEU, CMP, CBC, DRUGS, PHV, ADIFF, TROPHS ####[place] [address] Calcium [Mass/Vol] 8.8 mg/dL Normal 8.7-10.4 [facility] ([place]) Comment on above: Performed By: #### M DW, GFR, ANEU, CMP, CBC, DRUGS, PHV, ADIFF, TROPHS ####[place] [address] Chloride [Moles/Vol] 102 mmol/L Normal 98-110 [facility] ([place]) Comment on above: Performed By: #### M DW, GFR, ANEU, CMP, CBC, DRUGS, PHV, ADIFF, TROPHS ####[place] [id number] CO2 [Moles/Vol] 30 mmol/L Normal 22-32 [facility] ([place]) Comment on above: Performed By: #### M DW, GFR, ANEU, CMP, CBC, DRUGS, PHV, ADIFF, TROPHS ####[place] [address] Creatinine [Mass/Vol] 0.87 mg/dL Normal 0.60-1.40 [facility] ([place]) Comment on above: Performed By: #### M DW, GFR, ANEU, CMP, CBC, DRUGS, PHV, ADIFF, TROPHS ####[place] [address] Electrolyte Balance 7.0 mEq/L Normal 4.0-15.0 [facility] ([place]) Comment on above: Performed By: #### M DW, GFR, ANEU, CMP, CBC, DRUGS, PHV, ADIFF, TROPHS ####[place] [address] Globulin 3.1 G/dL Normal 1.5-3.8 [facility] ([place]) Comment on above: Performed By: #### M DW, GFR, ANEU, CMP, CBC, DRUGS, PHV, ADIFF, TROPHS ####[place] [address] Glucose [Mass/Vol] 289 mg/dL High 70-110 [facility] ([place]) Comment on above: Performed By: #### M DW, GFR, ANEU, CMP, CBC, DRUGS, PHV, ADIFF, TROPHS ####[place] [address] Potassium [Moles/Vol] 3.7 mmol/L Normal 3.5-5.0 [facility] ([place]) Comment on above: Performed By: #### M DW, GFR, ANEU, CMP, CBC, DRUGS, PHV, ADIFF, TROPHS ####[place] [address] Sodium [Moles/Vol] 139 mmol/L Normal 136-145 [facility] ([place]) Comment on above: Performed By: #### M DW, GFR, ANEU, CMP, CBC, DRUGS, PHV, ADIFF, TROPHS ####[place] [address] Total Protein 6.6 G/dL Normal 5.7-8.2 [facility] ([place]) Comment on above: Result Comment: No te - New Reference Range in effect 20 Performed By: #### M DW, GFR, ANEU, CMP, CBC, DRUGS, PHV, ADIFF, TROPHS ####[place] [address] Urea nitrogen [Mass/Vol] 12.0 mg/dL Normal 8.0-22.0 [facility] ([place]) Comment on above: Performed By: #### M DW, GFR, ANEU, CMP, CBC, DRUGS, PHV, ADIFF, TROPHS ####[place] [address] DRUGSon 02-01-2024 Acetaminophen [Mass/Vol] ug/mL Low 10.0-20.0 [facility] ([place]) Comment on above: Performed By: #### T KING DRUGS #### [place] [address] Ethanol Level <10.0 Normal [facility] ([place]) Comment on above: Performed By: #### T KING DRUGS #### [place] [address] Salicylate Lvl (ds) <3.0 Low 10.0-25.0 [facility] ([place]) Comment on above: Performed By: #### T KING DRUGS #### [address] [address] Serum Drugs screened: See Below [facility] ([place]) Comment on above: Result Comment: This drug screen is a presumptive screening only. No confirmation will be performed unless requested. Drugs included in the ER serum drug screen are: Threshold Ethanol 10.0 mg/dL Salicylate 2.0 mg/dl Acetaminophen 2.0 mcg/mL Testing has been performed FOR MEDICAL PURPOSES ONLY. Performed By: #### T KING, DRUGS #### [address] [address] Acetaminophen [Mass/Vol] ug/mL Low 10.0-20.0 [facility] ([place]) Comment on above: Performed By: #### M DW, GFR, ANEU, CMP, CBC, DRUGS, PHV, ADIFF, TROPHS ####[place] [address] Ethanol Level <10.0 [facility] ([place]) Comment on above: Performed By: #### M DW, GFR, ANEU, CMP, CBC, DRUGS, PHV, ADIFF, TROPHS ####[place] [address] Salicylate Lvl (ds) <3.0 Low 10.0-25.0 [facility] ([place]) Comment on above: Performed By: #### M DW, GFR, ANEU, CMP, CBC, DRUGS, PHV, ADIFF, TROPHS ####[address] [address] Serum Drugs screened: See Below [facility] ([place] Comment on above: Result Comment: This drug screen is a presumptive screening only. No confirmation will be performed unless requested. Drugs included in the ER serum drug screen are: Threshold Ethanol 10.0 mg/dL Salicylate 2.0 mg/dl Acetaminophen 2.0 mcg/mL Testing has been performed FOR MEDICAL PURPOSES ONLY. Performed By: #### M DW, GFR, ANEU, CMP, CBC, DRUGS, PHV, ADIFF, TROPHS ####[address] [address] DRUGUon 02-01-2024 Amphetamine (u) Negative Normal Negative [facility] ([place]) Comment on above: Performed By: #### D RUGU #### [address] [address] Barbiturate (u) Negative Normal Negative [facility] ([place]) Comment on above: Performed By: #### Kate RUGU #### [place] [address] Benzodiazepine (u) Negative Normal Negative [facility] ([place]) Comment on above: Performed By: #### Kate RUGU #### [place] [id number] Cannabinoid (u) Negative Normal Negative [facility] ([place]) Comment on above: Performed By: #### Kate RUGU #### [place] [address] Cocaine Ql (U) Positive Abnormal Negative [facility] ([place]) Comment on above: Performed By: #### Kate RUGU #### [place] [address] Fentanyl (u) Negative Normal Negative [facility] ([place]) Comment on above: Result Comment: Test ing has been performed FOR MEDICAL PURPOSES ONLY. Performed By: #### Kate RUGU #### [place] [address] Methadone Ql (U) Negative Normal Negative [facility] ([place]) Comment on above: Performed By: #### Kate RUGU #### [place] [address] Opiate (u) Negative Normal Negative [facility] ([place]) Comment on above: Performed By: #### D RUGU #### [place] [id number] Oxycodone (u) Negative Normal Negative [facility] ([place]) Comment on above: Result Comment: Test ing has been performed FOR MEDICAL PURPOSES ONLY. Performed By: #### D RUGU #### [place] [address] PCP (u) Negative Normal Negative [facility] ([place]) Comment on above: Performed By: #### D SILVANAU #### [address] [address] Propoxyphene (u) Negative Normal Negative [facility] ([place]) Comment on above: Performed By: #### D SILVANAU #### [address] [address] U pH Drug Scrn 5.5 Normal 5.0-8.0 [facility] ([place]) Comment on above: Performed By: #### D SILVANAU #### [address] [address] Urine Drugs screened: See Below Normal [facility] ([place]) Comment on above: Result Comment: This drug [...] MEDICAL PURPOSES ONLY. Performed By: #### D TRISTAN #### [address] [address] LABORATORYOrdered By: Tiny Frederick on 02-01-2024 Amphetamines [...] [Mass/Vol] mcg/mL Low 10.0 - 20.0 mcg/mL ADM SS Ethanol [Mass/Vol] mg/dL Invalid Interpretation Code ADM SS Salicylates [Mass/Vol] mg/dL Low 10.0 - 25.0 mg/dL ADM Serum Drugs screened: See Below 9 (02/01/24 3:27 PM) Normal Chemistry S Comment on above: Interpretive Data: [...] ng/L High 0 - 54 ng/L ADM Comment on above: Interpretive Data: High Sensitive Troponin I Reference Ranges: Female: 0-34 ng/L Male: 0-54 ng/L Testing performed on [employer] analyzer using direct chemiluminescent technology. Albumin BCP dye [Mass/Vol] 3.5 G/dL Normal 3.2 - 4.8 G/dL ADM SS Albumin/Globulin [Mass ratio] 1.1 {ratio} Normal 0.9 - 1.6 ratio ADM SS ALP [Catalytic activity/Vol] 96 U/L Normal 38 - 126 U/L ADM SS ALT No additional P-5'-P [Catalytic activity/Vol] 24 U/L Normal 12 - 55 U/L ADM SS AST [Catalytic activity/Vol] 39 U/L [...] 10. 4 mg/dL ADM SS Chloride [Moles/Vol] 102 mmol/L Normal 98 - 11 0 mEq/L ADM SS CO2 [Moles/Vol] 30 mmol/L Normal 22 - 32 mEq/L ADM SS Creatinine [Mass/Vol] 0.87 mg/dL Normal 0.60 - 1.40 mg/dL ADM SS Electrolyte Balance 7.0 mEq/L Normal 4.0 - 15 .0 mEq/L ADM SS Eosinophils (Bld) [#/Vol] 0.2 103/mcL [...] 3.1 G/dL Normal 1.5 - 3.8 G/dL AH ADM SS Glucose [Mass/Vol] 289 mg/dL High 70 - 110 mg/dL AH ADM SS Hematocrit (Bld) [Volume fraction] 41.0 % Normal [...] ng/L Male: 0-54 ng/L Testing performed on [employer] IM analyzer using direct chemiluminescent technology. Urea nitrogen [...] 261 mg/dL High 70 - 110 mg/dL [facility] Work Phone: PHVon 02-01-2024 pH Venous 7.367 Low 7.380-7.460 [facility] ([place]) Comment on above: Performed By: #### U A, UAMIC #### [facility] [address] [place] [address] 02-01-2024 High Sensitivity Troponin I 334 ng/L High 0-54 [facility] ([place]) Comment on above: Result Comment: High Sensitive Troponin I Reference Ranges: Female: 0-34 ng/L Male: 0-54 ng/L Testing performed on [employer] analyzer using direct chemiluminescent technology. Performed By: #### T ROPHS, DRUGS #### [address] [address] High Sensitivity Troponin I 384 ng/L High 0-54 [facility] ([place]) Comment on above: Result Comment: High Sensitive Troponin I Reference Ranges: Female: 0-34 ng/L Male: 0-54 ng/L Testing performed on [employer] IM analyzer using direct chemiluminescent technology. Performed By: #### M DW, GFR, ANEU, CMP, CBC, DRUGS, PHV, ADIFF, TROPHS ####[place] [address] UAon 02-01-2024 Color (U) Dark Yellow Normal [facility] ([place]) Comment on above: Performed By: #### U A, UAMIC #### [place] [address] Glucose (U) [Mass/Vol] mg/dL Abnormal Negative [facility] ([place]) Comment on above: Performed By: #### U A, UAMIC #### [place] [address] Ketones Ql (U) 15 mg/dL Abnormal Neg-Trace [facility] ([place]) Comment on above: Performed By: #### U A, UAMIC #### [place] [address] UA Appear Clear Normal Clear [facility] ([place]) Comment on above: Performed By: #### U A, UAMIC #### [place] [id number] UA Blood Negative Normal Neg-Trace [facility] ([place]) Comment on above: Performed By: #### U A, UAMIC #### [place] [id number] UA Leuk Est Negative Normal Negative [facility] ([place]) Comment on above: Performed By: #### U A, UAMIC #### [place] [id number] UA Nitrite Negative Normal Negative [facility] ([place] Comment on above: Performed By: #### U A, UAMIC #### [place] [address] UA pH 6.0 Normal 5.0 - 8.0 [facility] ([place]) Comment on above: Performed By: #### U A, UAMIC #### [place] [address] UA Protein Negative Normal Negative [facility] ([place]) Comment on above: Performed By: #### U A, UAMIC #### [place] [address] UA Spec Grav >=1.030 Abnormal 1.006-1.029 [facility] ([place]) Comment on above: Performed By: #### U A, UAMIC #### [place] [address] UA Specimen Type Clean Catch Normal [facility] ([place]) Comment on above: Performed By: #### U A, UAMIC #### [place] [address] UA Urobilinogen 2.0 E.U./dL Abnormal 0.2-1.0 [facility] ([place]) Comment on above: Performed By: #### U A, UAMIC #### [place] [address] Urobilinogen (U) [Mass/Vol] Negative Normal Neg-Trace [facility] ([place]) Comment on above: Performed By: #### U A, UAMIC #### [place] [address] UAMICon 02-01-2024 UA Bacteria Trace Abnormal Negative [facility] ([place]) Comment on above: Performed By: #### U A, UAMIC #### [place] [address] UA Mucous 4+ /hpf Normal [facility] ([place]) Comment on above: Performed By: #### U A, UAMIC #### [place] [address] UA RBC 3-5 Abnormal 0-2 [facility] ([place]) Comment on above: Performed By: #### U A, UAMIC #### [place] [address] UA Squam Epithelial Rare Normal 0-20 [facility] ([place]) Comment on above: Performed By: #### U A, UAMIC #### [address] [address] UA Transitional Epithelial Rare Normal [facility] ([place]) Comment on above: Performed By: #### U A, UAMIC #### [address] [address] UA WBC Rare Normal 0-5 [facility] ([place]) Comment on above: Performed By: #### U A, UAMIC #### [address] [address] .Auto Diffon 01-05-2024 Basophil, Absolute 0.1 10 3/mcL Normal 0.0-0.3 [facility] ([place]) Comment on above: Performed By: #### G FR, BHB, CBC, MDW, ADLEESA, ANEU, CMP #### [address] [address] Basophils/100 WBC (Bld) 0.7 % Normal 0.0-2.5 [facility] ([place]) Comment on above: Performed By: #### G FR, BHB, CBC, MDW, ADLEESA, ANEU, CMP #### [address] [address] Eosinophil, Absolute 0.1 10 3/mcL Normal 0.0-0.7 [facility] ([place]) Comment on above: Performed By: #### G FR, BHB, CBC, MDW, ADIFF, ANEU, CMP #### [address] [address] Eosinophils/100 WBC (Bld) 1.3 % Normal 0.0-6.0 [facility] ([place]) Comment on above: Performed By: #### G FR, BHB, CBC, MDW, ADIFF, ANEU, CMP #### [address] [address] Lymphocyte, Absolute 2.0 10 3/mcL Normal 0.9-4.3 [facility] ([place]) Comment on above: Performed By: #### G FR, BHB, CBC, MDW, ADIFF, ANEU, CMP #### [address] [address] Lymphocytes/100 WBC (Bld) 24.6 % Normal 20.0-40.0 [facility] ([place]) Comment on above: Performed By: #### G FR, BHB, CBC, MDW, ADIFF, ANEU, CMP #### [address] [address] Monocyte, Absolute 0.7 10 3/mcL Normal 0.1-1.4 [facility] ([place]) Comment on above: Performed By: #### G FR, BHB, CBC, MDW, ADIFF, ANEU, CMP #### [address] [address] Monocytes/100 WBC (Bld) 8.6 % Normal 2.0-13.0 [facility] ([place]) Comment on above: Performed By: #### G FR, BHB, CBC, MDW, ADIFF, ANEU, CMP #### [address] [address] Neutrophils/100 WBC (Bld) 64.8 % Normal 50.0-75.0 [facility] ([place]) Comment on above: Performed By: #### G FR, BHB, CBC, MDW, ADIFF, ANEU, CMP #### [address] [address] .GFRon 01-05-2024 GFR >60 Normal [facility] ([place]) Comment on above: Result Comment: GFR Population [...] Performed By: #### U A, UAMIC #### [place] [address] GFR Non- >60 Normal [facility] ([place]) Comment on above: Result Comment: GFR Population [...] Performed By: #### U A, UAMIC #### [place] [address] .MDWon 01-05-2024 Monocyte Distribution Width 15.55 Normal 0.00-20.00 [facility] ([place]) Comment on above: Result Comment: For ED adult patients suspected of sepsis, MDW<=20.0 does not rule out sepsis or risk of sepsis Performed By: #### U A, UAMIC #### [place] [address] .NEUABSon 01-05-2024 Neutrophil, Absolute 5.2 10 3/mcL Normal 2.3-8.1 [facility] ([place]) Comment on above: Performed By: #### G FR, BHB, CBC, MDW, ADIFF, ANEU, CMP #### [place] [address] BHBon 01-05-2024 B-Hydroxybutyrate 41.42 mg/dL High 0.20-2.81 [facility] ([place]) Comment on above: Performed By: #### U A, UAMIC #### [place] [address] CBCon 01-05-2024 Erythrocyte distribution width (RBC) [Ratio] 13.6 % Normal 11.5-15.5 [facility] ([place]) Comment on above: Performed By: #### G FR, BHB, CBC, W, ADIFF, ANEU, CMP #### [place] [address] Hematocrit (Bld) [Volume fraction] 42.7 % Normal 40.0-52.0 [facility] ([place]) Comment on above: Performed By: #### G FR, BHB, CBC, MDW, ADIFF, ANEU, CMP #### [place] [address] Hgb 14.8 G/dL Normal 13.0-17.5 [facility] ([place]) Comment on above: Performed By: #### G FR, BHB, CBC, MDW, ADIFF, ANEU, CMP #### [place] [address] MCH (RBC) [Entitic mass] 31.5 pg Normal 27.0-33.0 [facility] ([place]) Comment on above: Performed By: #### G FR, BHB, CBC, MDW, ADIFF, ANEU, CMP #### [place] [address] MCHC 34.7 G/dL Normal 32.0-36.0 [facility] ([place]) Comment on above: Performed By: #### G FR, BHB, CBC, MDW, ADIFF, ANEU, CMP #### [place] [address] MCV (RBC) [Entitic vol] 90.8 fL Normal 81.0-100.0 [facility] ([place]) Comment on above: Performed By: #### G FR, BHB, CBC, MDW, ADIFF, ANEU, CMP #### [place] [address] Platelet 189 10 3/mcL Normal 150-450 [facility] ([place]) Comment on above: Performed By: #### G FR, BHB, CBC, MDW, ADIFF, ANEU, CMP #### [facility] [address] [place], [place] [address] Platelet mean volume (Bld) [Entitic vol] 8.4 fL Normal 6.4-10.5 [facility] ([place]) Comment on above: Performed By: #### G , BHB, CBC, AVILA, RHONDA, ANEU, CMP #### [address] [address] RBC 4.70 10 6/mcL Normal 4.50-6.00 [facility] ([place]) Comment on above: Performed By: #### G , BHB, CBC, W, RHONDA, ANEU, CMP #### [place] [address] WBC 8.0 10 3/mcL Normal 4.5-10.8 [facility] ([place]) Comment on above: Performed By: #### G , HAILEB, CBC, AVILA, RHONDA, ANEU, CMP #### [place] [address] CMPon 01-05-2024 Albumin Level 4.0 G/dL Normal 3.2-4.8 [facility] ([place]) Comment on above: Performed By: #### Kacie Espinoza UAMIC #### [place] [address] Albumin/Globulin [Mass ratio] 1.4 {ratio} Normal 0.9-1.6 [facility] ([place]) Comment on above: Performed By: #### U Olga UAMIC #### [place] [id number] ALP [Catalytic activity/Vol] 98 U/L Normal 38-126 [facility] ([place]) Comment on above: Performed By: #### U A UAMIC #### [place] [id number] ALT [Catalytic activity/Vol] 36 U/L Normal 12-55 [facility] ([place] Comment on above: Performed By: #### U A UAMIC #### [place] [address] AST [Catalytic activity/Vol] 48 U/L High 8-34 [facility] ([place]) Comment on above: Performed By: #### U A UAMIC #### [address] [address] Bili Total 1.50 mg/dL High 0.20-1.20 [facility] ([place]) Comment on above: Result Comment: Use of this assay is not recommended for patients undergoing treatment with eltrombopag due to the potential for falsely elevated results. Performed By: #### U A UAMIC #### [place] [id number] BUN/Creatinine Ratio 11.8 ratio Normal 10.0-22.0 [facility] ([place]) Comment on above: Performed By: #### U Olga UAMIC #### [place] [id number] Calcium [Mass/Vol] 9.6 mg/dL Normal 8.7-10.4 [facility] ([place]) Comment on above: Performed By: #### U Olga UAMIC #### [place] [id number] Chloride [Moles/Vol] 101 mmol/L Normal 98-110 [facility] ([place]) Comment on above: Performed By: #### U Olga UAMIC #### [place] [id number] CO2 [Moles/Vol] 20 mmol/L Low 22-32 [facility] ([place] Comment on above: Performed By: #### U A UAMIC #### [place] [id number] Creatinine [Mass/Vol] 0.85 mg/dL Normal 0.60-1.40 [facility] ([place] Comment on above: Performed By: #### U A, UAMIC #### [place] [id number] Electrolyte Balance 15.0 mEq/L Normal 4.0-15.0 [facility] ([place] Comment on above: Performed By: #### U A, UAMIC #### [place] [id number] Globulin 2.9 G/dL Normal 1.5-3.8 [facility] ([place] Comment on above: Performed By: #### U A, UAMIC #### [address] [address] Glucose [Mass/Vol] 333 mg/dL High 70-110 [facility] ([place]) Comment on above: Performed By: #### U A, UAMIC #### [address] [address] Potassium [Moles/Vol] 4.4 mmol/L Normal 3.5-5.0 [facility] ([place]) Comment on above: Performed By: #### U A, UAMIC #### [address] [address] Sodium [Moles/Vol] 136 mmol/L Normal 136-145 [facility] ([place]) Comment on above: Performed By: #### U A, UAMIC #### [address] [address] Total Protein 6.9 G/dL Normal 5.7-8.2 [facility] ([place]) Comment on above: Result Comment: No te - New Reference Range in effect 20 Performed By: #### U A, UAMIC #### [address] [address] Urea nitrogen [Mass/Vol] 10.0 mg/dL Normal 8.0-22.0 [facility] ([place] Comment on above: Performed By: #### U A, UAMIC #### [address] [address] LABORATORYOrdered By: SYSTEM SYSTEM on 01-05-2024 Albumin BCP dye [Mass/Vol] 4.0 G/dL Normal 3.2 - 4.8 G/dL ADM SS Albumin/Globulin [Mass ratio] 1.4 {ratio} Normal 0.9 - 1.6 ratio AH ADM SS ALP [Catalytic activity/Vol] 98 U/L Normal 38 - 126 U/L ADM SS ALT No additional P-5'-P [Catalytic activity/Vol] 36 U/L Normal 12 - 55 U/L ADM SS AST [Catalytic activity/Vol] 48 U/L High 8 - 34 U/L AH ADM SS Basophils (Bld) [#/Vol] 0.1 103/mcL Normal 0.0 - 0.3 10^3/mcL AH Workflow SS Basophils/100 WBC (Bld) 0.7 % Normal 0.0 - 2.5 % Workflow SS Beta hydroxybutyrate [Mass/Vol] 41.42 mg/dL High 0.20 - 2.81 mg/dL ADM SS Bilirubin [Mass/Vol] 1.50 mg/dL High 0.20 - 1.20 mg/dL ADM SS Comment [...] 2.9 G/dL Normal 1.5 - 3.8 G/dL ADM SS Glucose [Mass/Vol] 333 mg/dL High 70 - 110 mg/dL ADM SS Hematocrit (Bld) [Volume fraction] 42.7 [...] 8.4 fL Normal 6.4 - 10.5 fL AH Workflow SS Platelets (Bld) [#/Vol] 189 103/mcL [...] 136 mmol/L Normal 136 - 145 mEq/L AH ADM SS Urea nitrogen [Mass/Vol] 10.0 mg/dL Normal 8.0 - 22.0 mg/dL AH ADM SS Urea nitrogen/Creatinine [Mass ratio] 11.8 ratio Normal 10.0 - 22.0 ratio AH ADM SS WBC (Bld) [#/Vol] 8.0 103/mcL Normal 4.5 - 10.8 10^3/mcL Workflow SS LABORATORYOrdered By: Марина Barrow on 01-05-2024 Glucose [Mass/Vol] 316 mg/dL High 70 - 110 mg/dL [facility] Work Phone: CVFLURVon 09-19-2023 FLU A PCR Negative Normal Negative [facility] ([place]) Comment on above: Performed By: #### U A, UAMIC #### [facility] [address] [place] [id number] FLU B PCR Negative Normal Negative [facility] ([place]) Comment on above: Performed By: #### U A, UAMIC #### [facility] [address] [place] [id number] RSV PCR Negative Normal Negative [facility] [facility] ([place]) Comment on above: Performed By: #### U A, UAMIC #### [place] [address] [place] [address] SARS-CoV-2 (COVID-19) RNA VAISHALI+probe Ql (Unsp spec) Negative Normal Negative [facility] ([place]) Comment on above: Result Comment: This test [...] positive results. Performed By: #### U A, UAMIC #### [address] [address] GLU POCon 09-19-2023 Perf Loc - POCT Tested at AM Normal [facility] ([place]) Comment on above: Result Comment: [facility] [address] [place], [place] [address] Glucose [Mass/Vol] 126 mg/dL High 70-110 [facility] ([place]) Performing Instrument - POCT MASSED2 Normal [facility] ([place]) Perf Loc - POCT Tested at AM Normal [facility] ([place]) Comment on above: Result Comment: Tracie Hoover [address] [place], [place] [address] Perf Loc - POCT Tested at AM Normal [facility] ([place]) Comment on above: Result Comment: Tracie [facility] [address] [place], [place] [address] Glucose [Mass/Vol] 47 mg/dL Critically abnormal 70-110 [facility]) Performing Instrument - POCT MASSED2 Normal [facility]) Glucose [Mass/Vol] 200 mg/dL High 70-110 [facility]) Performing Instrument - POCT MASSED1 Normal [facility]) XR CHEST 1 VIEWon 09-19-2023 XR CHEST [...] Date: 09/19/2023 11:03:57 AM Ordering Provider: KING PORRAS Normal [facility] ([place]) Basophil percentageOrdered B y: Eliza Sheela on 04-25-2023 Bilirubin [Mass/Vol] 0.60 mg/dL 0.20-1.00 [facility] Comment on above: For patients on eltr ombopag therapy, use of Dimension [place] TBIL is not recommended. Chloride [Moles/Vol] 106 mmol/L 98-107 [facility] Glucose [Mass/Vol] 350 mg/dL 74-106 [facility] Comment on above: Glucose result great er than or equal to 200 mg/dLsuggests DIABETES MELLITUS per A.D.A. criteria. Potassium [Moles/Vol] 4.4 mmol/L 3.5-5.1 [facility] Protein [Mass/Vol] 6.4 g/dL 6.4-8.2 [facility] Sodium [Moles/Vol] 140 mmol/L 136-145 [facility] WBC (Bld) [#/Vol] 6.7 10*3/uL 4.4-11.0 [facility] Blood erythrocytes count (nu mber/volume)Ordered By: Eliza Coker on 04-25-2023 RBC (Bld) [#/Vol] 4.63 10*6/uL 4.6-6.[address] [facility] Blood hemoglobin measurement (mass/volume)Ordered By: Eliza Coker on 04-25-2023 Hemoglobin (Bld) [Mass/Vol] 14.1 g/dL 13.0-16.5 [facility] Blood platelet mean volumeOr dered By: Eliza Coker on 04-25-2023 Platelet mean volume (Bld) [Entitic vol] 10.0 fL 6.2-12.0 [facility] Determination of erythrocyte mean corpuscular volume (MCV)Ordered By: Eliza Coker on 04-25-2023 MCV (RBC) [Entitic vol] 94.0 fL 80-94 [facility] Hematocrit Auto (Bld) [Volum e fraction]Ordered By: Eliza Coker on 04-25-2023 Hematocrit (Bld) [Volume fraction] 43.5 % 40-54 [facility] Laboratory - Chemistry and C hemistry - challengeOrdered By: Eliza Coker on 04-25-2023 ALP [Catalytic activity/Vol] 91 U/L 45-117 [facility] ALT [Catalytic activity/Vol] 37 U/L 16-61 [facility] CO2 [Moles/Vol] 28.0 mmol/L 21.0-32.0 [facility] Free T4 [Mass/Vol] 0.59 ng/dL 0.76-1.46 [facility] Globulin (S) [Mass/Vol] 3.5 g/dL 2.2-4.2 [facility] T4 [Mass/Vol] 3.7 ug/dL 4.5-12.1 [facility] Urea nitrogen/Creatinine [Mass ratio] 11.5 mg/mg 10-20 [facility] Laboratory - Hematology and Cell countsOrdered By: Eliza Coker on 04-25-2023 Erythrocyte distribution width (RBC) [Entitic vol] 44.8 fL 35.1-43.9 [facility] Erythrocyte distribution width (RBC) [Ratio] 13.0 % 11.6-14.6 [facility] MCH (RBC) [Entitic mass] 30.5 pg 27.0-32.0 [facility] MCHC Auto (RBC) [Mass/Vol]Or dered By: Eliza Coker on 04-25-2023 MCHC (RBC) [Mass/Vol] 32.4 g/dL 32-36 [facility] No Panel InformationOrdered By: Eliza Coker on 04-25-2023 Estimated GFR (MDRD) Amer 100 mL/min >60 [facility] Comment on above: GFR Calc Estimated GFR (MDRD) Non-Af Amer 83 mL/min >60 [facility] Comment on above: Non- GFR Calc Free Triiodothyronine (T3) pg/dL 2.5 pg/mL 2.18-3.98 [facility] Thyroid Stimulating Hormone (TSH) 5.66 uIU/mL 0.358-3.74 [facility] Platelets bldOrdered By: Silas Coker on 04-25-2023 Platelets (Bld) [#/Vol] 210 10*3/uL 150-450 [facility] Serum or plasma albumin jake urement (mass/volume)Ordered By: Eliza Coker on 04-25-2023 Albumin [Mass/Vol] 2.9 g/dL 3.2-5.0 [facility] Serum or plasma albumin/glob ulin mass ratioOrdered By: Eliza Coker on 04-25-2023 Albumin/Globulin [Mass ratio] 0.8 {ratio} 0.9-2.4 [facility] Serum or plasma calcium jake urement (mass/volume)Ordered By: Eliza Coker on 04-25-2023 Calcium [Mass/Vol] 8.4 mg/dL 8.5-10.1 [facility] Serum or plasma creatinine m easurement (mass/volume)Ordered By: Eliza Coker on 04-25-2023 Creatinine [Mass/Vol] 1.04 mg/dL 0.70-1.30 [facility] Comment on above: The validity of the calculated GFR & GFRAA in patients over 70 years has not been determined. Clinical correlation is essential. Serum or plasma urea nitroge n measurement (mass/volume)Ordered By: Eliza Coker on 04-25-2023 Urea nitrogen [Mass/Vol] 12 mg/dL 7-18 [facility] Thin prep Papanicolaou smear with manual screeningOrdered By: Eliza Coker on 04-25-2023 Thin prep Papanicolaou smear with manual screening 32 U/L 15-37 [facility] Thin prep Papanicolaou smear with manual screening 6 5-15 [facility] Whole blood hemoglobin A1c/t otal hemoglobin ratio (mass fraction)Ordered By: Eliza Coker on 04-25-2023 HbA1c (Bld) [Mass fraction] 8.2 % 3.8-5.6 [facility] Comment on above: Normal < 5.7 % Predi abetic 5.7 - 6.4 % Diabetic >or= 6.5 % Please note range changes. Glucose Glucometer (BldC) [M ass/Vol]Ordered By: Melquiades Patel on 03-20-2023 Glucose [Mass/Vol] 242 mg/dL 74-106 [facility] Comment on above: MANAGEMENT OF PATIEN T CARE PER NURSING PROTOCOL LABORATORYOrdered By: Jennifer Hernandez on 02-16-2023 Glucose [Mass/Vol] 421 mg/dL Invalid Interpretation Code 70 - 110 mg/dL [facility] Work Phone: Glucose [Mass/Vol] 483 mg/dL Invalid Interpretation Code 70 - 110 mg/dL [facility] Work Phone: LABORATORYOrdered By: SYSTEM SYSTEM on [...] Invalid Interpretation Code 12 - 55 U/L AH ADM SS AST [Catalytic activity/Vol] 38 U/L Invalid Interpretation Code 8 - 34 U/L AH ADM SS Basophils (Bld) [#/Vol] 0.1 103/mcL Invalid Interpretation Code 0.0 - 0.3 10^3/mcL AH Workflow SS Basophils/100 WBC (Bld) 1.2 % Invalid Interpretation Code 0.0 - 2.5 % AH Workflow SS Bilirubin [Mass/Vol] 1.40 mg/dL Invalid Interpretation Code 0.20 - 1.20 mg/dL ADM SS Comment on above: Interpretive Data: U se of this assay is not recommended for patients undergoing treatment with eltrombopag due to the potential for falsely elevated results. Calcium [Mass/Vol] 9.0 mg/dL Invalid Interpretation Code 8.7 - 10.4 mg/dL AH ADM SS Chloride [Moles/Vol] 98 mmol/L Invalid Interpretation Code 98 - 110 mEq/L ADM SS CO2 [Moles/Vol] 25 mmol/L Invalid Interpretation Code 22 - 32 mEq/L ADM SS Creatinine [Mass/Vol] 0.66 mg/dL Invalid [...] Invalid Interpretation Code 11.5 - 15.5 % Workflow SS GFR/1.73 [...] (S/P/Bld) [Vol rate/Area] ml/min/1.73sqm Invalid Interpretation Code [facility] Comment on above: Interpretive Data: GFR Population [...] Invalid Interpretation Code 1.5 - 3.8 G/dL [facility] Glucose [Mass/Vol] 545 mg/dL Invalid Interpretation Code 70 - 110 mg/dL [facility] Comment on above: Result Comment: read back by Nurys Quinones Hematocrit (Bld) [Volume fraction] 43.8 % Invalid Interpretation Code 40.0 - 52.0 % Workflow SS Hemoglobin (Bld) [Mass/Vol] 14.8 G/dL Invalid Interpretation Code 13.0 - 17.5 G/dL Workflow SS Lymphocytes (Bld) [#/Vol] 1.6 103/mcL Invalid Interpretation Code 0.9 - 4.3 10^3/mcL Workflow SS Lymphocytes/100 WBC (Bld) 27.6 % Invalid Interpretation Code 20.0 - 40.0 % Workflow SS MCH (RBC) [Entitic mass] 31.7 pg Invalid Interpretation Code 27.0 - 33.0 pg Workflow SS MCHC 33.9 G/dL Invalid Interpretation Code 32.0 - 36.0 G/dL Workflow SS MCV (RBC) [Entitic vol] 93.5 [...] Interpretation Code 3.5 - 5.0 mEq/L ADM Comment on above: Result Comment: Spec imen slightly hemolyzed. Protein [Mass/Vol] 7.3 G/dL Invalid Interpretation Code 5.7 - 8.2 G/dL ADM SS Comment on above: Interpretive Data: * *Note - New Reference Range in effect 20 RBC (Bld) [#/Vol] 4.68 106/mcL Invalid Interpretation Code 4.50 - 6.00 10^6/mcL Workflow SS Sodium [Moles/Vol] 134 mmol/L Invalid Interpretation Code 136 - 145 mEq/L ADM SS Troponin I.cardiac DL <= 0.01 ng/mL [Mass/Vol] 9.06 ng/L Invalid Interpretation Code 0.00 - 54.00 ng/L ADM SS Comment on above: Interpretive [...] Comment on above: Result Comment: [place] [id number] MRSA PCR Int MRSA DNA not detecte [...] may not be reproducible. Invalid Interpretation Code Auto Viro/Sero SS LABORATORYOrdered By: Aga Cullen on 02-16-2023 Blood Glucose Testing Reason Routine (02/16/23 11:19 AM) [facility] Work Phone: Blood Glucose, Capillary Out of Range Critical High (02/16/23 11:19 AM) [facility] Work Phone: Glucose [Mass/Vol] 500 mg/dL Invalid Interpretation Code 70 - 110 mg/dL [facility] Work Phone: Time of Stated Blood Glucose [id number] [facility] Work Phone: Comprehensive metabolic 1998 panelOrdered By: Anabel Siegel on 08-25-2022 Albumin [Mass/Vol] 4.0 g/dL 3.5 - 5.0 g/dL [facility] ALP [Catalytic activity/Vol] 118 U/L 38 - 126 U/L [facility] ALT [Catalytic activity/Vol] 18 U/L 0 - 49 U/L [facility] Anion gap [Moles/Vol] 23 mmol/L High 3 - 13 mmol/L [facility] AST [Catalytic activity/Vol] 27 U/L 15 - 46 U/L [facility] Bilirubin [Mass/Vol] 1.2 mg/dL 0.2 - 1 .3 mg/dL [facility] Calcium [Mass/Vol] 8.9 mg/dL 8.4 - 10. 4 mg/dL [facility] Chloride [Moles/Vol] 93 mmol/L Low 98 - 10 7 mmol/L [facility] CO2 [Moles/Vol] 14 mmol/L Low 22 - 30 mmol/L [facility] Creatinine [Mass/Vol] 1.30 mg/dL High 0.66 - 1.25 mg/dL [facility] GFR/1.73 sq M.predicted MDRD (S/P/Bld) [Vol rate/Area] 69.9 mL/min/{1.73_m2} - PINF [facility] Comment on above: Calculation based on the Chronic Kidney Disease Epidemiology Collaboration (CKD-EPI) equation refit without adjustment for race Glucose [Mass/Vol] 650 mg/dL Critically high 70 - 1 00 mg/dL [facility] Interpretation and review of laboratory results Abnormal [facility] Potassium [Moles/Vol] 5.3 mmol/L High 3.5 - 5.1 mmol/L [facility] Protein [Mass/Vol] 6.5 g/dL 6.3 - 8.2 g/dL [facility] Sodium [Moles/Vol] 130 mmol/L Low 135 - 145 mmol/L [facility] Urea nitrogen [Mass/Vol] 16 mg/dL 9 - 20 mg/dL [facility] HbA1c (Bld) [Mass fraction]o n 08-25-2022 Glucose [Mass/Vol] 235 mg/dL [facility] HbA1c (Bld) [Mass/Vol] 9.8 % High NINF - 5.7 % [facility] Comment on above: Normal less than 5.7 % Prediabetes 5.7% to 6.4% Diabetes 6.5% or higher --HgbA1C levels may not be accurate in patients who have renal disease, received recent blood transfusions, are anemic, or who have dyshemoglobinemia. Interpretation and review of laboratory results Abnormal [facility] Laboratory - Chemistry and C hemistry - challengeon 08-25-2022 Glucose [Mass/Vol] mg/dL High 70 - 100 mg/dL [facility] Comment on above: Caregiver Notified; Beta hydroxybutyrate [Mass/Vol] 81.50 mg/dL High 0.20 - 2.81 mg/dL [facility] Magnesium [Mass/Vol] 1.4 mg/dL Low 1.6 - 2 .3 mg/dL [facility] Troponin I.cardiac [Mass/Vol] ng/mL 0.000 - 0.034 ng/mL [facility] Base excess Calc (BldV) [Moles/Vol] -10.98111 mmol/L Low -3 - 3 mmol/L [facility] CO2 (BldV) [Partial pressure] 24.3 mm[Hg] Low [facility] CO2 [Moles/Vol] 14.1 mmol/L Low 24.0 - 28.0 mmol/L [facility] HCO3 (Bld) [Moles/Vol] 13.4 mmol/L Low 23.0 - 27.0 mmol/L [facility] Oxygen (BldV) [Partial pressure] 39.0 mm[Hg] [facility] pH (BldV) 7.349 [pH] 7.330 - 7.[address] [facility] Glucose [Mass/Vol] mg/dL High 70 - 100 mg/dL [facility] Comment on above: Caregiver Notified; Laboratory - Chemistry and C hemistry - challengeOrdered By: Mari Carlisle on 08-25-2022 Lactate [Moles/Vol] 4.2 mmol/L Critically high 0.7 - 2.0 mmol/L [facility] Magnesium [Mass/Vol]on 08-25 Interpretation and review of laboratory results Abnormal [facility] No Panel Informationon 08-25 Interpretation and review of laboratory results Abnormal [facility] Performed by: [facility] [place] [facility], [address] [place] [id number] CLIA ID: [id number] [facility] Interpretation and review of laboratory results Abnormal [facility] P [place] 79 degrees [facility] AK Interval 178 ms [facility] QRS [place] 97 degrees [facility] QRSD Interval 104 ms [facility] QT Interval 357 ms [facility] QTC Interval 466 ms [facility] T Wave [place] 22 degrees [facility] Sinus tachycardia Biatrial enlargement Borderline right axis [...] 08-25-2022 18:02:54 EST by Dulce Maria Barba [facility] FIO2 21 [facility] Comment on above: Performed by CLIA ID : [id number] [place], [place] ?Device: [id number] Envelope Adjuster ID: [id number] Interpretation and review of laboratory results Abnormal [facility] Performed by: [facility], [address] [facility] [address] CLIA ID: [id number] [facility] Interpretation and review of laboratory results Abnormal [facility] Performed by: [facility], [address] [facility] [address] CLIA ID: [id number] [facility] No Panel InformationOrdered By: Mari Carlisle on 08-25-2022 Interpretation and review of laboratory results Abnormal [facility] Troponin I.cardiac [Mass/Vol ]on 08-25-2022 Interpretation and review of laboratory results Normal [facility] Patients with high l evels of Biotin oral intake (ie >5 mg/day) may have falsely decreased Troponin levels. [facility] Vital signson 08-25-2022 Heart rate 102 /min bpm [facility] Oxygen saturation in Venous blood 72.4 % 60.0 - 80.0 % [facility] HEMOGLOBIN A1C (POC)on 07-21 HbA1c (Bld) [Mass fraction] 8.9 % Abnormal 4.2 - 5.6 % [facility] HEMOGLOBIN A1C (POC)on 01-22 HbA1c (Bld) [Mass fraction] 8.1 % Abnormal 4.2 - 5.6 % [facility] CT CHEST CARDIAC WO IVCONon 12-31-2021 [facility] LIPID PANEL, NONFASTINGon Cholesterol [Mass/Vol] 204 mg/dL High <200 mg/dL [facility] HDL Cholesterol, Nonfasting 65 mg/dL >39 mg/dL [facility] LDL Cholesterol, Nonfasting 114 mg/dL High <100 mg/dL [facility] LDL/HDL Ratio, Nonfasting 1.75 mg/dL <2.54 mg/dL [facility] Non HDL Cholesterol, Nonfasting 139 mg/dL High <130 mg/dL [facility] Total Chol/HDL Ratio, Nonfasting 3.14 mg/dL <5.10 mg/dL [facility] Triglycerides, Nonfasting 127 mg/dL <150 mg/dL [facility] VLDL Cholesterol, Nonfasting 25 mg/dL <30 mg/dL [facility] NT PRO BNPon 12-31-2021 Natriuretic peptide.B prohormone N-Terminal [Mass/Vol] <50 <125 pg/mL [facility] STRESS ECHO TREADMILLon 12-10 [facility] XR CHEST 2V FRONTAL/LATon [facility] Glucose,Bedsideon 11-12-2021 Glucose [Mass/Vol] 263 mg/dL High 70-100 [facility] Comment on above: Result Comment: Test performed by glucose meter. Results may be 10%-15% lower than serum/plasma values. (CLIA ID [id number]) Performed By: #### B GLU #### [facility] [address] [place] [address] Brain Natriuretic Peptideon 10-20-2021 Natriuretic peptide B (Bld) [Mass/Vol] 70 pg/mL 0 - 125 pg/mL [facility] with Auto Differentialon 10-20-2021 Absolute Baso [...] (Stl) 14.2 g/dL 13.0 - 18.0 g/dL [facility] Interpretation and review of laboratory results Abnormal [...] 4.51 10*6/uL 4.40 - 5.9 0 10*6/uL [facility] WBC (Bld) [#/Vol] 6.0 10*3/uL 3.6 - 10.7 10*3/uL [facility] Test Performed by [facility], [address] [place] [address] LAB [facility] CR Chest Portableon 10-21-19 22 CR Chest Portable Patient Name: LUISITO ZHONG Diagnostic Radiology ACCESSION EXAM DATE/TIME PROCEDURE ORDERING PROVIDER [id number] 10/20/2021 11:49 EDT CR Chest Portable QAMAR GRESHAM DANIEL M CPT code 70891 Reason For Exam (CR Chest Portable) dyspnea [...] Transcribed Date and Time: 10/20/2021 12:27 Normal [facility] Comp Metabolic Panelon 10-20 ALP [Catalytic activity/Vol] 59 U/L Normal 38-126 [facility] Comment on above: Performed By: #### H EMDF, TROPN, BNP3, CMP3 #### [facility] [address] [place] [address] ALT [Catalytic activity/Vol] 23 U/L Normal 0-49 [facility] Comment on above: Result Comment: The ALT test is performed by an updated assay method. Please note that the reference intervals have been changed and are now sex specific. Performed By: #### H EMDF, TROPN, BNP3, CMP3 #### [facility] [address] [place] [address] Anion gap [Moles/Vol] 3 mmol/L Normal 3-13 [facility] Comment on above: Performed By: #### H EMDF, TROPN, BNP3, CMP3 #### [facility] [address] [place] [address] AST [Catalytic activity/Vol] 31 U/L Normal 15-46 [facility] Comment on above: Performed By: #### H EMDF, TROPN, BNP3, CMP3 #### [facility] [address] [place] [address] Bilirubin [Mass/Vol] 0.7 mg/dL Normal 0.2-1.3 [facility] Comment on above: Performed By: #### H EMDF, TROPN, BNP3, CMP3 #### [facility] [address] [place] [address] Calcium [Mass/Vol] 9.3 mg/dL Normal 8.4-10.4 [facility] Comment on above: Performed By: #### H EMDF, TROPN, BNP3, CMP3 #### [facility] [address] [place] [address] CO2 [Moles/Vol] 29 mmol/L Normal 22-30 [facility] Comment on above: Performed By: #### H EMDF, TROPN, BNP3, CMP3 #### [facility] [address] [place] [address] Creatinine [Mass/Vol] 0.87 mg/dL Normal 0.52-1.25 [facility] Comment on above: Performed By: #### H EMDF, TROPN, BNP3, CMP3 #### [facility] [address] [place] [address] eGFR OTHER > 90.0 Normal >60 [facility] Comment on above: Result Comment: KDIG [...] #### H EMDF, TROPN, BNP3, CMP3 #### [facility] [address] [place] [address] GFR/1.73 sq M.predicted among blacks MDRD (S/P/Bld) [Vol rate/Area] mL/min/{1.73_m2} Normal >60 [facility] Comment on above: Performed By: #### H EMDF, TROPN, BNP3, CMP3 #### [facility] [address] [place] [address] Glucose [Mass/Vol] 97 mg/dL Normal 70-100 [facility] Comment on above: Performed By: #### H EMDF, TROPN, BNP3, CMP3 #### [facility] [address] [place] [address] Protein [Mass/Vol] 6.8 g/dL Normal 6.3-8.2 [facility] Comment on above: Performed By: #### H EMDF, TROPN, BNP3, CMP3 #### [facility] [address] [place] [address] Urea nitrogen [Mass/Vol] 13 mg/dL Normal 7-17 [facility] Comment on above: Performed By: #### H EMDF, TROPN, BNP3, CMP3 #### [facility] [address] [place] [address] Albumin [Mass/Vol] 3.8 g/dL Normal 3.5-5.0 [facility] Comment on above: Performed By: #### H EMDF, TROPN, BNP3, CMP3 #### [facility] [address] [place] [address] Potassium [Moles/Vol] 3.8 mmol/L Normal 3.5-5.1 [facility] Comment on above: Performed By: #### H EMDF, TROPN, BNP3, CMP3 #### [facility] [address] [place] [address] Sodium [Moles/Vol] 139 mmol/L Normal 135-145 [facility] Comment on above: Performed By: #### H EMDF, TROPN, BNP3, CMP3 #### [facility] [address] [place] [address] Chloride [Moles/Vol] 106 mmol/L Normal 98-107 [facility] Comment on above: Performed By: #### H EMDF, TROPN, BNP3, CMP3 #### [facility] [address] [place] [address] Comprehensive Metabolic Pane manan 10-20-2021 Albumin [Mass/Vol] 3.8 g/dL 3.5 - 5.0 g/dL [facility] ALP (Bld) [Catalytic activity/Vol] 59 U/L 38 - 126 U/L [facility] ALT [Catalytic activity/Vol] 23 U/L 0 - 49 U/L [facility] Comment on above: The ALT test [...] - 1.25 mg/dL [facility] EGFR IF NonAfrican Peruvian >90.0 >60 mL/min [facility] Comment on above: KDIGO guidelines pro vide [...] [Mass/Vol] 13 mg/dL 7 - 17 mg/dL [facility] Test Performed by [facility], [address], [place], [place] [id number] [place] [address] LAB [facility] D-Dimer, Innovanceon 10-20-2 022 D-Dimer, Innovance 0.28 mg/L Normal <0.19-0.50 [facility] Comment on above: Result Comment: Inno cotto D-Dimer values of <0.50 mg/L FEU can be used in combination with a pre-test probability model (e.g. Well's) to exclude pulmonary embolism (PE) disease, as well as an aid in the diagnosis of deep vein thrombosis (DVT). Performed By: #### D DI2 #### [facility] [address] [place] [address] D-Dimer, Quantitativeon 04- D-Dimer, Quant 0.28 mg/L <0.19 - 0.50 [facility] Comment on above: Innovance D-Dimer va lues of <0.50 mg/L FEU can be used in combination with a pre-test probability model (e.g. Well's) to exclude pulmonary embolism (PE) disease, as well as an aid in the diagnosis of deep vein thrombosis (DVT). Test Performed by [facility], [address], [place], [place] [address] [facility] LAB [facility] ED Provider Noteon ED Provider Note Emergency Department Encounter [facility] ED Patient: Luisito Zhong : 1980 Date of Evaluation: 10/20/2021 ED Supervising Physician: Dulce Maria Cooper, This will serve as my supervisory note [...] Will gather data and discussed with his conduit installer to formulate a disposition plan. All diagnostic, [...] Cooper, DO [employer] Dulce Maria Cooper, DO 10/20/21 1211 [facility] ED [facility] eMERGENCY dEPARTMENT eNCOUnter Pt Name: Luisito Zhong Birthdate 1980 Date of evaluation: 10/20/2021 Provider: Casey Gresham APRN - AMBULANCE ATTENDANT This patient was seen in conjunction with [...] november to have a second opinion at [facility]. Nursing Notes were reviewed. REVIEW OF [...] tunnel syndrome 2018 right ? Cocaine abuse ([facility]) ? Depression ? Diabetes mellitus type 1 ([facility] 1983 ? Hyperlipidemia ? Thyroid disease SURGICALHISTORY Past Surgical History: Procedure Laterality Date ? CARPAL TUNNEL RELEASE ? ELBOW SURGERY Right 2018 cubital tunnel syndrome ? HIP SURGERY Right ? OTHER SURGICAL HISTORY Left 11/30/2018 Carpel Tunnel ? 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 SHOULDER SURGERY Left 2012 adhesive capsulitis CHASE and arthroscopy CURRENT MEDICATIONS [...] Resource St (more content not included)... Normal [facility] EKG 12 Lead - Chest Painon 0 10-20-2021 [facility] Test Date: 2021-10-20 Pat Name: LUISITO ZHONG Department: 01 Room: 32 Gender: M Inspector Balance Bridge: IVANIA : 1980 Requested By: CASEY GRESHAM Order Number: [id number] Reading : Dulce Maria Cooper Measurements Intervals [place] Rate: 60 P: 32 AK: 182 QRS: 52 QRSD: 97 T: 36 QT: 410 QTc: 409 Interpretive Statements Sinus rhythm with normal rate, intervals and QRS duration. No acute ischemic changes. Electronically Signed On 10-20-2021 11:56:15 EDT by Dulce Maria Cooper [facility] Dulce Maria Cooper, DO - 10/20/2021 [facility] Test Date: 2021-10-20 Pat Name: LUISITO ZHONG Department: 01 Room: 32 Gender: M Inspector Balance Bridge: ZL : 1980 Requested By: CASEY GRESHAM Order Number: [id number] Reading : Dulce Maria Cooper Measurements Intervals [place] Rate: 60 P: 32 AK: 182 QRS: 52 QRSD: 97 T: 36 QT: 410 QTc: 409 Interpretive Statements Sinus rhythm with normal rate, intervals and QRS duration. No acute ischemic changes. Electronically Signed On 10-20-2021 11:56:15 EDT by Dulce Maria Cooper [facility] Work Phone: EKG 12 Lead - Chest PainOrde red By: Dulce Maria Cooper on 10-20-2021 [facility] Work Phone: Hemogram w/ Autodiffon 10-20 Abs Baso Cnt 0.1 10*3/uL Normal 0.0-0.2 [facility] Comment on above: Performed By: #### H EMDF, TROPN, BNP3, CMP3 #### [facility] [address] [place] [address] Abs Neutrophile Cnt 3.2 10*3/uL Normal 1.8-7.0 [facility] Comment on above: Performed By: #### H EMDF, TROPN, BNP3, CMP3 #### [facility] [address] [place] [address] Basophils/100 WBC (Bld) 1.0 % Normal 0.0-2.0 [facility] Comment on above: Performed By: #### H EMDF, TROPN, BNP3, CMP3 #### [facility] [address] [place] [address] Eosinophils (Bld) [#/Vol] 0.2 10*3/uL Normal 0.0-0.5 [facility] Comment on above: Performed By: #### H EMDF, TROPN, BNP3, CMP3 #### [facility] [address] [place] [address] Eosinophils/100 WBC (Bld) 3.9 % Normal 1.0-6.0 [facility] Comment on above: Performed By: #### H EMDF, TROPN, BNP3, CMP3 #### [facility] [address] [place] [address] Erythrocyte distribution width (RBC) [Ratio] 13.0 % Normal 11.5-14.5 [facility] Comment on above: Performed By: #### H EMDF, TROPN, BNP3, CMP3 #### [facility] [address] [place] [address] Granulocytes/100 WBC (Bld) 53.6 % Normal 40.0-80.0 [facility] Comment on above: Performed By: #### H EMDF, TROPN, BNP3, CMP3 #### [facility] [address] [place] [address] Hematocrit (Bld) [Volume fraction] 40.6 % Normal 40.0-52.0 [facility] Comment on above: Performed By: #### H EMDF, TROPN, BNP3, CMP3 #### [facility] [address] [place] [address] Hemoglobin (Bld) [Mass/Vol] 14.2 g/dL Normal 13.0-18.0 [facility] Comment on above: Performed By: #### H EMDF, TROPN, BNP3, CMP3 #### [facility] [address] [place] [address] Lymphocytes (Bld) [#/Vol] 1.8 10*3/uL Normal 1.0-4.3 [facility] Comment on above: Performed By: #### H EMDF, TROPN, BNP3, CMP3 #### [facility] [address] [place] [address] Lymphocytes/100 WBC (Bld) 30.0 % Normal 20.0-40.0 [facility] Comment on above: Performed By: #### H EMDF, TROPN, BNP3, CMP3 #### [facility] [address] [place] [address] MCH (RBC) [Entitic mass] 31.5 pg Normal 26.0-34.0 [facility] Comment on above: Performed By: #### H EMDF, TROPN, BNP3, CMP3 #### [facility] [address] [place] [address] MCHC 35.1 % Normal 32.0-36.0 [facility] Comment on above: Performed By: #### H EMDF, TROPN, BNP3, CMP3 #### [facility] [address] [place] [address] MCV (RBC) [Entitic vol] 89.9 fL Normal 80.0-98.0 [facility] Comment on above: Performed By: #### H EMDF, TROPN, BNP3, CMP3 #### [facility] [address] [place] [address] Monocytes (Bld) [#/Vol] 0.7 10*3/uL Normal 0.0-0.8 [facility] Comment on above: Performed By: #### H EMDF, TROPN, BNP3, CMP3 #### [facility] [address] [place] [address] Monocytes/100 WBC (Bld) 11.5 % High 2.0-10.0 [facility] Comment on above: Performed By: #### H EMDF, TROPN, BNP3, CMP3 #### [facility] [address] [place] [address] Platelet mean volume (Bld) [Entitic vol] 8.1 fL Normal 7.4-10.4 [facility] Comment on above: Performed By: #### H EMDF, TROPN, BNP3, CMP3 #### [facility] [address] [place] [address] Platelets (Bld) [#/Vol] 199 10*3/uL Normal 140-440 [facility] Comment on above: Performed By: #### H EMDF, TROPN, BNP3, CMP3 #### [facility] [address] [place] [address] RBC (Bld) [#/Vol] 4.51 10*6/uL Normal 4.40-5.90 [facility] Comment on above: Performed By: #### H EMDF, TROPN, BNP3, CMP3 #### [facility] [address] [place] [address] WBC (Bld) [#/Vol] 6.0 10*3/uL Normal 3.6-10.7 [facility] Comment on above: Performed By: #### H EMDF, TROPN, BNP3, CMP3 #### [facility] [address] [place] [address] NT pro BNPon 10-20-2021 Natriuretic peptide B (Bld) [Mass/Vol] 70 pg/mL Normal 0-125 [facility] Comment on above: Performed By: #### H EMDF, TROPN, BNP3, CMP3 #### [facility] [address] [place] [address] No Panel Informationon 10-20 Test Performed by [facility], [address] [place] [address] [facility] Troponin Ion 10-20-2021 Troponin I.cardiac [Mass/Vol] ng/mL Normal 0.000-0.034 [facility] Comment on above: Result Comment: . Performed By: #### H EMDF, TROPN, BNP3, CMP3 #### [facility] [address] [place] [address] Troponin x1on 10-20-2021 Troponin I.cardiac [Mass/Vol] ng/mL 0.000 - 0.034 ng/mL [facility] Comment on above: . XR CHEST PORTABLEon 10-21-19 Patient Name: LUISITO ZHONG Diagnostic Radiology ACCESSION EXAM DATE/TIME PROCEDURE ORDERING PROVIDER [id number] 10/20/2021 11:49 EDT CR Chest Portable QAMAR GRESHAM DANIEL M CPT code 91605 Reason For Exam (CR Chest Portable) dyspnea [...] LAURA Transcribed Date and Time: 10/20/2021 12:27 [facility] Cindy Blankenship MD - 10/20/2021 Patient Name: LUISITO ZHONG Diagnostic Radiology ACCESSION EXAM DATE/TIME PROCEDURE ORDERING PROVIDER [id number] 10/20/2021 11:49 EDT CR Chest Portable QAMAR GRESHAM DANIEL M CPT code 80658 Reason For Exam (CR Chest Portable) dyspnea [...] LAURA Transcribed Date and Time: 10/20/2021 12:27 [facility]: Radiology Study observation (narrative) [facility] Work Phone: XR CHEST PORTABLEOrdered By: Cindy Blnakenship on 10-20-2021 [facility] Work Phone: Echo 2D/3D LAWSON w/wo Contrast on 10-07-2021 Echo 2D/3D LAWSON w/wo Contrast Patient Name: LUISITO ZHONG Ultrasound ACCESSION EXAM DATE/TIME PROCEDURE ORDERING PROVIDER [id number] 10/07/2021 09:20 EDT Echo 2D/3D LAWSON w/wo SHELLY TAVERAS DOMINIC S Contrast Reason For Exam (Echo 2D/3D LAWSON w/wo Contrast) subaortic stenosis Report TRANSESOPHAGEAL ECHOCARDIOGRAM PATIENT: Luisito Zhong STUDY DATE: 10/07/2021 [facility]#: [id number] : 1980 AGE: 41 HT/WT: 182.9 cm (72 127.3 kg (280 in) lb) GENDER: M BP: 81 / 52 LOCATION: [facility] PATIENT Outpatient main STATUS: *ORDERING PHYSICIAN: * Janusz Taveras *READING PHYSICIAN: * Yosef Nicole INDICATIONS: Subaortic stenosis. [...] S 1 (more content not included)... Normal [employer] Glucose,Bedsideon 10-07-2021 Glucose [Mass/Vol] 349 mg/dL High 70-100 [facility] Comment on above: Result Comment: Test performed by glucose meter. Results may be 10%-15% lower than serum/plasma values. (CLIA ID [id number]) Performed By: #### B GLU #### [employer] [address] [place] [phone] ECHO Complete 2D W Doppler W Coloron 09-23-2021 TRANSTHORACIC ECHOCARDIOGRAM PATIENT: Luisito Zhong STUDY DATE: 09/23/2021 : 1980 AGE: 41 HT/WT: 182.9 cm (72 127 kg in) (279.4 lb) GENDER: M BP: 138 / 90 LOCATION: [facility] PATIENT [facility] STATUS: *ORDERING PHYSICIAN: * Janusz Taveras *READING PHYSICIAN: * Sandra, *ELECTRICAL ASSEMBLY SUPERVISOR: * Hillary Robin MD Lindsay INDICATIONS: Shortness [...] --------- LV E/e (more content not included)... [facility] CARDIOLOG[facility] Hillary Flores MD - 09/23/2021 TRANSTHORACIC ECHOCARDIOGRAM PATIENT: Luisito Zhong STUDY DATE: 09/23/2021 : 1980 AGE: 41 HT/WT: 182.9 cm (72 127 kg in) (279.4 lb) GENDER: M BP: 138 / 90 LOCATION: [place] [address] PATIENT Outpatient [facility] STATUS: *ORDERING PHYSICIAN: * Janusz Taveras *READING PHYSICIAN: * Sandra, *ELECTRICAL ASSEMBLY SUPERVISOR: * Hillary Robin MD Lindsay INDICATIONS: Shortness [...] Aortic mean gra (more content not included)... [employer] Work Phone: ECHO Complete 2D W Doppler W ColorOrdered By: Hillary Flores on 09-23-2021 [employer] Work Phone: Echo Complete w/wo Contrasto n 09-23-2021 Echo Complete w/wo Contrast [facility]: [id number] Ul[facility]ound ACCESSION EXAM DATE/TIME PROCEDURE ORDERING PROVIDER [id number] 09/23/2021 16:11 EDT Echo Complete w/wo SHELLY TAVERAS DOMINIC S Contrast Reason For Exam (Echo Complete w/wo Contrast) SOB Report TRANSTHORACIC ECHOCARDIOGRAM PATIENT: Luisito Zhong STUDY DATE: 09/23/2021 : 1980 AGE: 41 HT/WT: 182.9 cm (72 127 kg in) (279.4 lb) GENDER: M BP: 138 / 90 LOCATION: [place] [address] [address] STATUS: *ORDERING PHYSICIAN: * Janusz Taveras *READING PHYSICIAN: * Sandra, JustoELECTRICAL ASSEMBLY SUPERVISOR: * Hillary Robin MD Lindsay INDICATIONS: Shortness [...] Stroke in (more content not included)... Normal [facility] LABORATORYOrdered By: Elvin Schwartz on 07-23-2021 Glucose [Mass/Vol] 144 mg/dL Invalid Interpretation Code 70 - 110 mg/dL [facility] Work Phone: LABORATORYOrdered By: SYSTEM SYSTEM on [...] Invalid Interpretation Code 70 - 110 mg/dL [facility] Work Phone: LABORATORYOrdered By: Yadi Chanel on [...] Invalid Interpretation Code 70 - 110 mg/dL [facility] Work Phone: LABORATORYOrdered By: SYSTEM SYSTEM on [...] mg/dL ADM SS Urea nitrogen/Creatinine [Mass ratio] 10.8 ratio Invalid Interpretation Code 10.0 - 22.0 ratio ADM SS Basophils (Bld) [#/Vol] 0.00 103/mcL Invalid Interpretation Code 0.00 - 0.27 10^3/mcL AH Remisol SS Basophils/100 WBC (Bld) 0.4 % Invalid Interpretation Code 0.0 - 2.5 % AH Remisol SS Eosinophils (Bld) [#/Vol] 0.00 103/mcL Invalid Interpretation Code 0.00 - 0.65 10^3/mcL Remisol SS Eosinophils/100 WBC (Bld) 0.1 % Invalid Interpretation Code 0.0 - 6.0 % Remisol SS Erythrocyte distribution width (RBC) [Ratio] 13.2 % Invalid Interpretation Code 11.5 - 15.5 % Remisol SS Hematocrit (Bld) [Volume fraction] 41.4 % Invalid Interpretation Code 40.0 - 52.0 % Remisol SS Hemoglobin (Bld) [Mass/Vol] 13.9 G/dL [...] Chem SS Base excess Calc (Bld) [Moles/Vol] -15.79483 mmol/L Invalid Interpretation Code AH Auto Chem SS CO2 (Bld) [Partial pressure] 19.2 mm[Hg] Invalid Interpretation Code 32.0 - 46.0 mm Hg AH Auto Chem SS CO2 [Moles/Vol] 9.4 mmol/L Invalid Interpretation Code 22.0 - 30.0 mmol/L AH Auto Chem SS HCO3 (Bld) [Moles/Vol] 8.9 mmol/L Invalid Interpretation Code 21.0 - 29.0 mmol/L Auto Chem SS Oxygen (Bld) [Partial pressure] 105.3 mm[Hg] Invalid Interpretation Code 74.0 - 108.0 mm Hg Auto Chem SS pH (Bld) 7.282 [pH] Invalid Interpretation Code 7.380 - 7.460 Auto Chem SS LABORATORYOrdered By: Yadi Chanel on 07-22-2021 Albumin BCP dye [Mass/Vol] 3.9 G/dL Invalid Interpretation Code 3.2 - 4.8 G/dL ADM SS Albumin/Globulin [Mass ratio] 1.4 {ratio} Invalid Interpretation Code 0.9 - 1.6 ratio ADM SS ALP [Catalytic activity/Vol] 91 U/L [...] - 8.2 G/dL ADM SS LABORATORYOrdered By: [employer] SYSTEM on 07-21-2021 Albumin [Mass/Vol] 4.5 G/dL [...] Invalid Interpretation Code 8 - 34 U/L AH ADM SS Basophils (Bld) [#/Vol] 0.10 103/mcL Invalid Interpretation Code 0.00 - 0.27 10^3/mcL AH Remisol SS Basophils/100 WBC (Bld) 0.5 % Invalid Interpretation Code 0.0 - 2.5 % AH Remisol SS Bilirubin [Mass/Vol] 1.1 mg/dL Invalid Interpretation Code 0.2 - 1.2 mg/dL AH ADM SS Eosinophils (Bld) [#/Vol] 0.00 103/mcL [...] Invalid Interpretation Code 6.0 - 8.5 G/dL AH ADM SS RBC (Bld) [#/Vol] 4.76 106/mcL Invalid Interpretation Code 4.50 - 6.00 10^6/mcL AH Remisol SS Troponin I.cardiac DL <= 0.01 ng/mL [Mass/Vol] 15.34 ng/L Invalid Interpretation Code 0.00 - 54.00 ng/L AH ADM SS WBC (Bld) [#/Vol] 12.10 103/mcL Invalid Interpretation Code 4.50 - 10.80 10^3/mcL AH Remisol SS LABORATORYOrdered By: Salome gonzalez on 07-21-2021 Beta hydroxybutyrate [Moles/Vol] mg/dL Invalid Interpretation Code 0.20 - 2.81 mg/dL AH ADM SS pH (BldV) 7.240 [pH] Invalid [...] Free T4 [Mass/Vol] 1.16 ng/dL Normal 0.78-2.19 [facility] Comment on above: Performed By: #### 4 [id number] #### [place] [address] Comprehensive metabolic pane l hillary [employer] 04-30-2021 Albumin [Mass/Vol] 3.7 g/dL 3.5 - 5.0 g/dL [facility] Alk Phos 71 U/L 24 - 126 U/L [facility] ALT [Catalytic activity/Vol] 21 U/L 4 - 50 U/L [facility] AST [Catalytic activity/Vol] 27 U/L 3 - 55 U/L [facility] Bilirubin [Mass/Vol] 0.9 mg/dL 0.2 - 1 .6 mg/dL [facility] Calcium [Mass/Vol] 9.1 mg/dL 8.4 - 10. 4 mg/dL [facility] Chloride [Moles/Vol] 103 mmol/L 96 - 10 9 mmol/L [facility] CO2 [Moles/Vol] 29 mmol/L 22 - 30 mmol/L [facility] Creatinine [Mass/Vol] 0.84 mg/dL 0.66 - 1.25 mg/dL [facility] Glucose [Mass/Vol] 298 mg/dL High 65 - 100 mg/dL [facility] Interpretation and review of laboratory results Abnormal [facility] Potassium [Moles/Vol] 4.4 mmol/L 3.6 - 5.1 mmol/L [facility] Protein [Mass/Vol] 6.3 g/dL 6.3 - 8.2 g/dL [facility] Sodium [Moles/Vol] 135 mmol/L 135 - 147 mmol/L [facility] Urea nitrogen [Mass/Vol] 13 mg/dL 8 - 26 mg/dL [facility] GFRon 04-30-2021 GFR >60 Normal [facility] Comment on above: Result Comment: To e [...] fulfill the criteria for CKD Kidney Int Suppl.2013;3:150 Performed By: #### G FR1 #### [facility] [address] [place] [address] GLOMERULAR FILTRATION RATEon 04-30-2021 GFR >60 [employer] Comment on above: To estimate the GFR [...] fulfill the criteria for CKD Kidney Int Suppl.2013;3:150 METABOLIC PANELon 04-30-2021 Calcium [Mass/Vol] 9.1 mg/dL Normal 8.4-10.4 [facility] Comment on above: Performed By: #### [id number] #### [facility] [address] [address] ALK PHOS 71 U/L Normal 24-126 [facility] [employer] Comment on above: Performed By: #### 4 [id number] #### [place] [id number] ALT [Catalytic activity/Vol] 21 U/L Normal 4-50 [facility] Comment on above: Performed By: #### 4 [id number] #### [facility] [place] [id number] AST [Catalytic activity/Vol] 27 U/L Normal 3-55 [facility] Comment on above: Performed By: #### 4 [id number] #### [place] [address] Bilirubin [Mass/Vol] 0.9 mg/dL Normal 0.2-1.6 [facility] Comment on above: Performed By: #### 4 [id number] #### [facility] [address] [address] CO2 [Moles/Vol] 29 mmol/L Normal 22-30 [facility] [employer] Comment on above: Performed By: #### 4 [id number] #### [facility] [place] [id number] Creatinine [Mass/Vol] 0.84 mg/dL Normal 0.66-1.25 [facility] Comment on above: Performed By: #### 4 [id number] #### [facility] [address] [address] Glucose [Mass/Vol] 298 mg/dL High 65-[address] [facility] Comment on above: Performed By: #### 4 [id number] #### [facility] [address] [address] Protein [Mass/Vol] 6.3 g/dL Normal 6.3-8.2 [facility] Comment on above: Performed By: #### 4 [id number] #### [place] [address] Urea nitrogen [Mass/Vol] 13 mg/dL Normal 8-26 [facility] Comment on above: Performed By: #### 4 [id number] #### [place] [address] Albumin [Mass/Vol] 3.7 g/dL Normal 3.5-5.0 [facility] Comment on above: Performed By: #### 4 [id number] #### [place] [address] Chloride [Moles/Vol] 103 mmol/L Normal 96-109 [facility] Comment on above: Performed By: #### 4 [id number] #### [place] [id number] Potassium [Moles/Vol] 4.4 mmol/L Normal 3.6-5.1 [facility] Comment on above: Performed By: #### 4 [id number] #### [place] [address] Sodium [Moles/Vol] 135 mmol/L Normal 135-147 [facility] Comment on above: Performed By: #### 4 [id number] #### [place] [address] No Panel Informationon 04-30 [facility] T4, freeon 04-30-2021 Free T4 [Mass/Vol] 1.16 ng/dL 0.78 - 2. 19 ng/dL [facility] TSHon 04-30-2021 TSH 0.967 uIU/mL Normal 0.465-4.680 [facility] Comment on above: Performed By: #### 4 [id number] #### [place] [address] TSH Qn 0.967 m[IU]/L [facility] Urinary microalbumin/creatin ine ratioOrdered By: Jessee Carrasco on 01-20-2021 Albumin DL <= 20 mg/L (U) [Mass/Vol] mg/dL 0.00 - 1.70 mg/dL [facility] MALB/Creat Ratio see below 0 - 29 mg/g [employer] [facility] Comment on above: Unable to calculate due [...] -- Ur Cre-Random 99.70 mg/dL NO NORMALS [facility] [place] Pre MRI/CT Hip InjectionO rdered By: Kaela Fatima on 01-15-2021 Successful fluoroscopic-guided right hip arthrogram. Patient was transferred to MRI for further imaging. [facility] EXAMINATION: FLUOROS COPIC GUIDED ARTHROGRAM, 01/15/2021 2:24 pm COMPARISON: None. HISTORY: Pain in right hip:Other chronic pain: Diagnosis: Chronic right hip pain M25.551, G89.29 (ICD-10-CM) FLUOROSCOPY DOSE AND TYPE OR TIME AND EXPOSURES: Total fluoroscopic time was 0.5 minute. Total of 1 fluoroscopic image submitted. PROCEDURE: CALENDER OPERATOR HELPER: Dulce Maria Yan MD Informed consent was [...] obtained and a sterile bandage was placed. [facility] Prabhjot, Rad Results In - 01/15/2021 3:13 PM EDT EXAMINATION: FLUOROSCOPIC GUIDED ARTHROGRAM, 01/15/2021 2:24 pm COMPARISON: None. HISTORY: Pain in right hip:Other chronic pain: Diagnosis: Chronic right hip pain M25.551, G89.29 (ICD-10-CM) FLUOROSCOPY DOSE AND TYPE OR TIME AND EXPOSURES: Total fluoroscopic time was 0.5 minute. Total of 1 fluoroscopic image submitted. PROCEDURE: CALENDER OPERATOR HELPER: Dulce Maria Yan MD Informed consent was [...] was transferred to MRI for further imaging. [employer] CBC with DifferentialOrdered By: Giovanni Ellis on 12-18-2020 Absolute Immature Granulocytes 0.0 0 10 3/uL [facility] Absolute Lymph 2.1 [facility] Absolute Kidder 0.7 High [employer] [facility] Basophils (Bld) [#/Vol] 0.1 10*3/uL [facility] Basophils/100 WBC (Bld) 1.7 % [facility] Eosinophils (Bld) [#/Vol] 0.5 10*3/uL High [employer] [facility] Eosinophils/100 WBC (Bld) 7.6 % [employer] [facility] Erythrocyte distribution width (RBC) [Ratio] 12.7 % 11.5 - 14.5 % [employer] [facility] Hematocrit (Bld) [Volume fraction] 45.6 % 37.7 - 51.1 % [employer] [facility] Hemoglobin (Bld) [Mass/Vol] 15.0 g/dL 12.8 - 17.7 g/dL [facility] Immature granulocytes/100 WBC (Bld) 0.2 % [facility] Interpretation and review of laboratory results Abnormal [facility] Lymphocytes/100 WBC (Bld) 33.4 % [facility] MCH (RBC) [Entitic mass] 30.9 pg 27.0 - 34.2 pg [facility] MCHC (RBC) [Mass/Vol] 32.9 g/dL 31.4 - 36.2 g/dl [facility] MCV (RBC) [Entitic vol] 93.8 fL 80.6 - 99.0 fL [facility] Monocytes/100 WBC (Bld) 11.4 % [facility] Neutrophils (Bld) [#/Vol] 2.9 10*3/uL [facility] Neutrophils/100 WBC (Bld) 45.7 % [facility] Platelets (Bld) [#/Vol] 253.0 10*3/uL [facility] RBC (Bld) [#/Vol] 4.86 10*6/uL [facility] WBC LM Ql (Sput) 6.3 [facility] Comprehensive metabolic pane l aka MetaboOrdered By: Giovanni Ellis on 12-18-2020 Albumin [Mass/Vol] 3.7 g/dL 3.5 - 5.0 g/dL [facility] Alk Phos 75 U/L 24 - 126 U/L [facility] ALT [Catalytic activity/Vol] 35 U/L 4 - 50 U/L [facility] AST [Catalytic activity/Vol] 45 U/L 3 - 55 U/L [facility] Bilirubin [Mass/Vol] 0.5 mg/dL 0.2 - 1 .6 mg/dL [facility] Calcium [Mass/Vol] 9.1 mg/dL 8.4 - 10. 4 mg/dL [facility] Chloride [Moles/Vol] 104 mmol/L 96 - 10 9 mmol/L [facility] CO2 [Moles/Vol] 31 mmol/L High 22 - 30 mmol/L [facility] Creatinine [Mass/Vol] 0.84 mg/dL 0.66 - 1.25 mg/dL [facility] Glucose [Mass/Vol] 113 mg/dL High 65 - 100 mg/dL [facility] Potassium [Moles/Vol] 4.0 mmol/L 3.6 - 5.1 mmol/L [facility] Protein [Mass/Vol] 6.4 g/dL 6.3 - 8.2 g/dL [facility] Sodium [Moles/Vol] 139 mmol/L 135 - 147 mmol/L [facility] Urea nitrogen [Mass/Vol] 17 mg/dL 8 - 26 mg/dL [facility] GLOMERULAR FILTRATION RATEOr dered By: Giovanni Ellis on 12-18-2020 GFR >60 [facility] Comment on above: To estimate the [...] HIV 1+2 Ab Ql (S) Non-Reactive Nonreactive [facility] [employer] Comment on above: Nonreactive No detectable HIV-1p24 Antigen or HIV-1/HIV2 antibodies Hepatitis Panel (includes He p A Antibody IgM, Hep B Core Antibody IgM, Hep B Surface Antigen, Hepatitis C Antibody)Ordered By: Giovanni Ellis on 12-18-2020 HAV IgM Qn (S) Non-Reactive Nonreactive [facility] [employer] HCV Ab Qn (S) Non-Reactive Nonreactive [facility] [employer] Hep B Core-M AB Non-Reactive Nonreactive [facility] Hep B Surf AG Non-Reactive Nonreactive [facility] Lipid panelOrdered By: Giovanni Ellis on 12-18-2020 Cholesterol [Mass/Vol] 194 mg/dL 0 - 200 mg/dL [facility] Comment on above: CHOLESTEROL REFERENC E RANGE Desirable <200 mg/dL Borderline 200-239 mg/dL High >240 mg/dL . Cholesterol in HDL [Mass/Vol] 74.6 mg/dL High 40.0 - 59.9 mg/dL [facility] Comment on above: Interpretive data fo r HDL Cholesterol states: HDL <40 mg/dL is low and constitutes a coronary disease risk factor. HDL >60 mg/dL is a negative risk factor for coronary heart disease. . Cholesterol in LDL [Mass/Vol] 107 mg/dL High 0 - 100 mg/dL [facility] Comment on above: LDL REFERENCE RANGE Optimal <100 mg/dl Near Optimal 100-129 mg/dL Borderline High 130-159 mg/dL High 160-189 mg/dL Very High >=190 mg/dL . Cholesterol in VLDL [Mass/Vol] 13 mg/dL <42 [facility] Triglyceride [Mass/Vol] 63 mg/dL 0 - 150 mg/dL [facility] Comment on above: TRIGLYCERIDE REFEREN CE RANGE Normal <150 mg/dL Borderline High 150-199 mg/dL High 200-499 mg/dL Very High >=500 mg/dL . No Panel InformationOrdered By: Giovanni Ellis on 12-18-2020 [facility] Interpretation and review of laboratory results Abnormal [facility] nRBC 0 [facility] T4 FREE [id number] By: Giovanni Ellis on 12-18-2020 Free T4 [Mass/Vol] 0.61 ng/dL Low 0.78 - 2. 19 ng/dL [facility] Interpretation and review of laboratory results Abnormal [facility] Thyroid CascadeOrdered By: Vicki Ellis on 12-18-2020 Interpretation and review of laboratory results Abnormal [facility] TSH [place] 12.600 High [facility] XR Chest PA and Lateral upri ghtOrdered By: Areli Rajput on 10-24-2020 No active cardiopulm onary disease. [facility] EXAMINATION: TWO XRA Y VIEWS OF [...] There are degenerative changes within the spine. [facility] Prabhjot, Rad Results In - 10/24/2020 6:50 [...] the spine. IMPRESSION: No active cardiopulmonary disease. [facility] MSCon 07-02-2020 [facility] REPORT Normal [facility] [place] [facility] DATE OF SERVICE: REASON OF VISIT: Pain [...] of motion of elbow was normal. Neurovascular [facility] PATIENT NAME: LUISITO ZHONG [facility] Dr. Sepulveda MEDICAL REC #: [id number] [place] [address] [facility] REPORT [facility]CARE PHYSICIAN status was normal. [...] answered to his satisfaction. Brit Banuelos MD PP/[id number] SSI File#: [id number] END OF DOCUMENT / CHANGE LOG FOLLOWS [facility] PATIENT NAME: [facility] MED[facility] REC #: [id number] [place] [address] [facility] REPORT [facility]CARE PHYSICIAN Last Edited By Elec. Signed By Brit Banuelos MD #PAWPR Brit Banuelos MD #PAWPR on 07/02/2020 18:39 ET on 07/02/2020 18:39 ET Revision Number - 2 Verified/Reviewed by 07/02/20 1839 PAWPR [facility] PATIENT NAME: LUISITO ZHONG [facility] Dr. Sepulveda MEDICAL REC #: [id number] [place] [address] [facility] REPORT [facility]CARE PHYSICIAN Normal [facility] CBCon 04-07-2020 Erythrocyte distribution width (RBC) [Ratio] 13.1 % Normal 11-14.5 [facility] Hematocrit (Bld) [Volume fraction] 45.5 % Normal 41.0-53.0 [facility] Hemoglobin (Bld) [Mass/Vol] 15.9 g/dL Normal 13.5-17.5 [facility] MCHC (RBC) [Mass/Vol] 34.9 g/dL Normal 32.0-36.0 [facility] MCV (RBC) [Entitic vol] 92.1 fL Normal 80.0-99.0 [facility] Platelets (Bld) [#/Vol] 223 K/CU MM Normal 150-450 [facility] RBC (Bld) [#/Vol] 4.94 M/CU MM Normal 4.50-6.00 [facility] WBC (Bld) [#/Vol] 5.6 K/CUMM Normal 4.5-11.0 [facility] CMPon 04-07-2020 Albumin [Mass/Vol] 4.1 g/dL Normal 3.2-5.0 [facility] Comment on above: Performed By: #### L 500.31588, L500.04048, L500.21605, L500.01357, L500.26127, L550.65290 #### [facility] [address] [place] [address] Albumin/Globulin [Mass ratio] 2.0 {ratio} Normal 0.8-2.0 [facility] Comment on above: Performed By: #### L 500.95120, L500.97539, L500.19572, L500.26293, L500.96588, L550.42358 #### [facility] [address] [place] [address] ALK PHOS 60 U/L Normal 45-117 [facility] Comment on above: Performed By: #### L 500.81163, L500.17982, L500.14020, L500.94906, L500.67763, L550.43573 #### [facility] [address] [place] [address] ALT [Catalytic activity/Vol] 18 U/L Normal 13-61 [facility] Comment on above: Result Comment: RESU LTS MAY BE FALSELY DEPRESSED AFTER THE ADMINISTRATION OF SULFASALAZINE AND/OR SULFAPYRIDINE. Performed By: #### L 500.43085, L500.64561, L500.61868, L500.22470, L500.51044, L550.16996 #### [facility] [address] [place] [address] Anion gap [Moles/Vol] 9 mmol/L Normal 5-16 [facility] Comment on above: Performed By: #### L 500.64070, L500.50241, L500.10155, L500.02470, L500.95635, L550.78658 #### [facility] [address] [place] [address] BILI TOTAL 0.60 MG/DL Normal 0.2-1.0 [facility] Comment on above: Performed By: #### L 500.52369, L500.40124, L500.74052, L500.08320, L500.26807, L550.51219 #### [facility] [address] [place] [address] Calcium [Mass/Vol] 9.6 mg/dL Normal 8.5-10.5 [facility] Comment on above: Result Comment: NOTE NEW NORMAL RANGE DUE TO REAGENT CHANGE Performed By: #### L 500.14716, L500.51691, L500.87549, L500.83174, L500.87719, L550.88887 #### [facility] [address] [place] [address] Chloride [Moles/Vol] 111 mmol/L High 98-107 [facility] Comment on above: Performed By: #### L 500.27412, L500.14347, L500.13221, L500.37185, L500.54026, L550.82167 #### [facility] [address] [place] [address] CO2 [Moles/Vol] 27.0 mmol/L Normal 21-32 [facility] Comment on above: Performed By: #### L 500.57710, L500.18373, L500.18043, L500.37106, L500.08101, L550.81836 #### [facility] [address] [place] [address] Creatinine [Mass/Vol] 0.82 mg/dL Normal 0.5-1.4 [facility] Comment on above: Result Comment: NOTE NEW NORMAL RANGE DUE TO REAGENT CHANGE Patients receiving either N-Acetylcysteine (NAC) or Metamizole prior to venipuncture, may have falsely depressed results. Performed By: #### L 500.00437, L500.32240, L500.52600, L500.46423, L500.34700, L550.17642 #### [facility] [place] [address] Globulin (S) [Mass/Vol] 2.0 g/dL Low 2.2-4.2 [facility] Comment on above: Performed By: #### L 500.59426, L500.58523, L500.07192, L500.74327, L500.68312, L550.35996 #### [facility] [address] [place] [address] Glucose [Mass/Vol] 60 mg/dL Low 70-100 [facility] Comment on above: Result Comment: 70-1 00- Normal Fasting; 100-125 Impaired Fasting; greater than 126 on more than one result- Diabetes. ADA guidelines. Results may be falsely elevated after the administration of Sulfapyridine. Results may be falsely depressed after the administration of Sulfasalazine. Performed By: #### L 500.67199, L500.20404, L500.72047, L500.31517, L500.73806, L550.82577 #### [facility] [address] [place] [address] Potassium [Moles/Vol] 5.0 mmol/L Normal 3.5-5.1 [facility] Comment on above: Result Comment: Slig ht Hemolysis, Result may be affected. Performed By: #### L 500.70771, L500.87551, L500.09544, L500.86843, L500.19635, L550.97200 #### [facility] [address] [place] [address] Protein [Mass/Vol] 6.1 g/dL Normal 6.0-8.5 [facility] Comment on above: Performed By: #### L 500.68323, L500.34153, L500.30728, L500.31319, L500.80140, L550.15117 #### [facility] [address] [place] [address] SGOT (AST) 23 U/L Normal 8-34 [facility] Comment on above: Result Comment: RESU LTS MAY BE FALSELY DEPRESSED AFTER THE ADMINISTRATION OF SULFASALAZINE AND/OR SULFAPYRIDINE. Performed By: #### L 500.48779, L500.80339, L500.34558, L500.49685, L500.28406, L550.84630 #### [facility] [address] [place] [address] Sodium [Moles/Vol] 147 mmol/L High 136-145 [facility] Comment on above: Performed By: #### L 500.34052, L500.47323, L500.85323, L500.47683, L500.28631, L550.25425 #### [facility] [address] [place] [address] Urea nitrogen [Mass/Vol] 9 mg/dL Normal 7-26 [facility] Comment on above: Performed By: #### L 500.43406, L500.15576, L500.89325, L500.90412, L500.68363, L550.27915 #### [facility] [address] [place], [place] [address] Urea nitrogen/Creatinine [Mass ratio] 11 mg/mg Low 15-24 [facility] Comment on above: Performed By: #### L 500.46428, L500.28713, L500.76044, L500.58307, L500.53251, L550.35547 #### [facility] [address] [place] [address] GFR ESTon 04-07-2020 IF AMER Greater than 60 Normal [facility] Comment on above: Performed By: #### L 500.45163, L500.61056, L500.67115, L500.20249, L500.73444, L550.65751 #### [facility] [place] [address] IF non-AFR AMER Greater than 60 Normal [facility] Comment on above: Performed By: #### L 500.61598, L500.91952, L500.87464, L500.41839, L500.21705, L550.20344 #### [facility] [address] [place], [place] [address] LIPIDon 04-07-2020 Cholesterol [Mass/Vol] 162 MG/dL Normal 0-199 [facility] Comment on above: Performed By: #### L 500.67241, L500.89174, L500.40189, L500.65226, L500.45564, L550.11367 #### [facility] [address] [place] [address] Cholesterol in HDL [Mass/Vol] 49 mg/dL Normal [place] [facility] Comment on above: Result Comment: Desiree ents receiving Metamizole prior to venipuncture, may have falsely depressed results. Performed By: #### L 500.88073, L500.54499, L500.33126, L500.40670, L500.01770, L550.27900 #### [facility] [address] [place], [place] [address] Cholesterol in LDL [Mass/Vol] 99 mg/dL Normal [facility] Comment on above: Result Comment: ___C HOLESTEROL/HDL RATIO RISK___ CHD RISK = Total CHOL LDL HDL (CHOL/HDL) Recommended <200 <130 >40 <3.4 Borderline 200-239 130-159 3.4-4.99 High >240 >160 >5.0 Performed By: #### L 500.53122, L500.12916, L500.78988, L500.73084, L500.30781, L550.78303 #### [facility] [address] [place] [address] Triglyceride [Mass/Vol] 73 mg/dL Normal 30-149 [facility] Comment on above: Result Comment: Desiree ents receiving either N-Acetylcysteine (NAC) or Metamizole prior to venipuncture, may have falsely depressed results. Performed By: #### L 500.98014, L500.03852, L500.33314, L500.27013, L500.74011, L550.38320 #### [facility] [address] [place] [address] T4 FREEon 04-07-2020 Free T4 [Mass/Vol] 0.96 ng/dL Normal 0.76-1.46 [facility] Comment on above: Performed By: #### L 500.52639, L500.83537, L500.01439, L500.20873, L500.02165, L550.84621 #### [facility] [address] [place] [address] TSHon 04-07-2020 TSH Qn 3.729 UIU/ML Normal 0.358-3.740 [facility] Comment on above: Result Comment: 3rd generation ultra sensitive TSH Performed By: #### L 500.70427, L500.52562, L500.68559, L500.73324, L500.41635, L550.55873 ####[facility] [id number] [place], [place] [address]Ao# [phone] [id number] 04-07-2020 [id number] 33.3 NG/ML Normal 30.0-100.0 [facility] Comment on above: Result Comment: Defi ciency Less than 20 ng/mL Insufficiency 20 - Less than 30 ng/mL Sufficiency 30 - 100 ng/mL Performed By: #### L 500.62849, L500.21883, L500.44241, L500.38956, L500.99813, L550.74547 ####[facility] [id number] [place], [place] [address]Xe# [phone] THROAT STREPon 02-21-2020 THROAT STREP BETA STREP RESULT NO BETA STREPTOCOCCUS ISOLATED Normal [facility] Comment on above: Order Comment: Saran RUBIO MSCon 02-19-2020 [facility] REPORT Normal [facility] DATE OF SERVICE: 05/2020 REASON OF VISIT: [...] patient in detail. There is no need [facility] PATIENT NAME: LUISITO ZHONG [address] [facility] [address] Sepulveda MEDICAL REC #: [id number] [place] [address] [facility] REPORT STATCARE PHYSICIAN of any antibiotic right now, but I will send strep for confirmation culture. He should do gargles, take lozenges, [id number] medications for symptom relief as needed. If there is any change in his symptoms, he needs to be rechecked. Patient understands and agreed. Brit Banuelos MD PP/[id number] [facility] File#: [id number] END OF DOCUMENT / CHANGE LOG FOLLOWS Last Edited By Elec. Signed By Brit Banuelos MD #PAWPR Brit Banuelos MD #YOLANDAPR on 02/28/2020 09:45 ET on 02/28/2020 09:45 ET Revision Number - 2 Verified/Reviewed by 02/28/2045 WALLY [facility] PATIENT NAME: [facility] MEDICAL REC #: [id number] [place] [address] [facility] REPORT STATCARE PHYSICIAN Normal [facility] RAPID STREP Aon 02-19-2020 S. pyogenes Ag IA Ql (Unsp spec) GROUP A STREP PRESUMPTIVE NEGATIVE FOR GROUP A BETA STREPTOCOCCUS Normal [facility] Comment on above: Order Comment: Saran marques: RAMIRO OSULLIVANon 02-11-2020 [facility] REPORT Normal [facility] DATE OF SERVICE: 09/2019 HISTORY OF PRESENT [...] 2% cream that was prescribed by a payment processor. However, he is out of it. PAST MEDICAL HISTORY: 1. Diabetes. 2. Heart disease. 3. Hypothyroidism. 4. Depression. CURRENT MEDICATIONS: 1. Tresiba. 2. Aspart. 3. NovoLog. 4. Synthroid. 5. Cymbalta. 6. Wellbutrin. [facility] PATIENT NAME: [facility] MEDICAL REC #: [id number] [place] [address] [facility] REPORT STATCARE PHYSICIAN 7. Ketoconazole. ALLERGIES: [...] apply twice daily until the rash resolves. [facility] PATIENT NAME: LUISITO ZHONG [address] [facility] [address] Sepulveda MEDICAL REC #: [id number] [place] [address] [facility] REPORT STATCARE PHYSICIAN Alba Hernandez MD /[id number] SSI File#: [id number] END OF DOCUMENT / CHANGE LOG FOLLOWS Last Edited By Alba Hernandez MD #COBMA on 02/17/2020 15:57 ET Revision Number - 2 Last Edited By Elec. Signed By Alba Hernandez MD #COBMA Alba Hernandez MD #COBMA on 02/17/2020 15:57 ET on 02/17/2020 15:57 ET Revision Number - 3 Verified/Reviewed by 02/17/20 1557 JESSICA [facility] PATIENT NAME: LUISITO ZHONG [address] [facility] [address] Sepulveda MEDICAL REC #: [id number] [place] [address] [facility] REPORT [facility]ARE PHYSICIAN [facility] REPORT Normal [facility] DATE OF SERVICE: 09/2019 REASON OF VISIT: [...] were discussed with the patient in detail. [facility] PATIENT NAME: LUISITO ZHONG [address] [facility] [address] Sepulveda MEDICAL REC #: [id number] [place] [address] [facility] REPORT STATCARE PHYSICIAN I gave him amoxicillin 875 mg twice a day for 10 days with no refill. He should do salt-water gargle, maintain hydration, take lozenges, and follow up with his doctor for further evaluation and care. Patient understands and agreed. Brit Banuelos MD PP/[id number] [facility] File#: [id number] END OF DOCUMENT / CHANGE LOG FOLLOWS Last Edited By Elec. Signed By Brit Banuelos MD #PAWPR Brit Banuelos MD #PAWPR on 01/17/2020 16:55 ET on 01/17/2020 16:55 ET Revision Number - 2 Verified/Reviewed by 01/17/20 1655 WALLY [facility] PATIENT NAME: LUISITO ZHONG [address] [facility] [address] [facility] MEDICAL REC #: [id number] [place] [address] [facility] REPORT STATCARE PHYSICIAN Normal [facility] RAPID STREP Aon 01-11-2020 S. pyogenes Ag IA Ql (Unsp spec) Positive Normal [facility] Comment on above: Order Comment: Saran s: MAS MRI CARDIAC W WO CONTRASTon 12-06-2019 MRI CARDIAC W WO CONTRAST [facility] Department of Radiology [address] [place] [address] Patient Name: LUISITO ZHONG : 1980 Sex: M Age: Race: NA Pt. Location: [facility] Patient Status: D Ordered Date: 11/21/2019 1:10:00 PM Completed Date: 12/06/2019 01:57 PM Requesting Provider: ULZ MARIA PEREZ Attending Provider: LUZ MARIA PEREZ Report Copy To: UNKNOWN, PHYSICIAN Signs & Symptoms: Q24.4 Subvalvar aortic stenosis R01.1 Heart murmur, systolic History: Order in RIS, No FB per SS. Resection of subaortic membrane done @ [facility], Dr Cabrera, same location as MRI order. PC Auth via Clear[employer] for CPT 52276 Auth#[id number] Valid 11/26/19-02/24/20 *Sla No to all COVID [...] regurgitation. Electronically signed: Eduardo Preston. Transcribed by: [email or web address], User Resident: Electronically Signed by: EDUARDO PRESTON @ 12/07/2019 08:50 AM Normal [facility] Comment on above: Order Comment: Ashlye moss Evaluate C-Reactive Proteinon 019 CRP [Mass/Vol] 36.7 mg/L High 0 - 6 mg/L [place], [place] Comment on above: . Comprehensive Metabolic Pane manan 05-10-2019 Albumin [Mass/Vol] 3.9 g/dL 3.5 - 5 g/dL [place], [place] ALP [Catalytic activity/Vol] 77 U/L 38 - 126 U/L [place] ALT [Catalytic activity/Vol] 25 U/L 13 - 69 U/L [place] Anion gap [Moles/Vol] 5 mmol/L [place] AST [Catalytic activity/Vol] 25 U/L 15 - 46 U/L [place] Bilirubin Ql (U) 1.2 mg/dL 0.2 - 1.3 mg/dL [place] Calcium [Mass/Vol] 8.9 mg/dL 8.4 - 10. 4 mg/dL [place] Chloride [Moles/Vol] 103 mmol/L 98 - 10 7 mmol/L [place] CO2 [Moles/Vol] 31 mmol/L High 22 - 30 mmol/L [place] Creatinine [Mass/Vol] 0.75 mg/dL 0.52 - 1.25 mg/dL [place] EGFR IF NonAfrican Peruvian >60.0 >60 mL/min [place] Comment on above: Source- MDRD equatio n with creatinine calibration to IDMS(NKDEP) eGFR not recommended for drug dose adjustment GFR/1.73 sq M predicted among blacks MDRD (S/P/Bld) [Vol rate/Area] mL/min/{1.73_m2} >60 mL/min [place] Glucose [Mass/Vol] 133 mg/dL High 70 - 100 mg/dL [place] Potassium [Moles/Vol] 4.6 mmol/L 3.5 - 5.1 mmol/L [place] Protein [Mass/Vol] 7.2 g/dL 6.3 - 8.2 g/dL [place] Sodium [Moles/Vol] 139 mmol/L 135 - 145 mmol/L [place] Urea nitrogen [Mass/Vol] 9 mg/dL 7 - 20 mg/dL [place] Hemogram (CBC) w/Auto Diffon 05-10-2019 Absolute Baso # 0.0 10*3/uL 0 - 0.2 10*3/uL [place] Absolute Neut # 7.5 10*3/uL High 1.8 - 7 10*3/uL [place] Basophils/100 WBC (Bld) 0.5 % 0 - 2 % [place] Eosinophils (Bld) [#/Vol] 0.2 10*3/uL 0 - 0.5 10*3/uL [place] Eosinophils/100 WBC (Bld) 2.3 % 1 - 6 % [place] Erythrocyte distribution width (RBC) [Ratio] 14.7 % High 11.5 - 14.5 % [place] Granulocytes/100 WBC (Bld) 75.6 % 40 - 80 % [place] Hematocrit (Bld) [Volume fraction] 46.1 % 40 - 52 % [place] Hemoglobin (Bld) [Mass/Vol] 15.4 g/dL 13 - 18 g/dL [place] Lymphocytes (Bld) [#/Vol] 1.4 10*3/uL 1 - 4.3 10*3/uL [place] Lymphocytes/100 WBC (Bld) 13.8 % Low 20 - 40 % [place] MCH (RBC) [Entitic mass] 29.3 pg 26 - 34 pg [place] MCHC (RBC) [Mass/Vol] 33.3 % 32 - 36 % [place] MCV (RBC) [Entitic vol] 88.1 fL 80 - 98 fL [place] Monocytes (Bld) [#/Vol] 0.8 10*3/uL 0 - 0.8 10*3/uL [place] Monocytes/100 WBC (Bld) 7.8 % 2 - 10 % [place] Platelet mean volume (Bld) [Entitic vol] 7.7 fL 7.4 - 10.4 fL [place] Platelets (Bld) [#/Vol] 223 10*3/uL 140 - 440 10*3/uL [place] RBC (Bld) [#/Vol] 5.24 10*6/uL 4.4 - 5.9 10*6/uL [place] WBC (Bld) [#/Vol] 9.9 10*3/uL 3.6 - 10.7 10*3/uL [place] Otheron 05-10-2019 Test Performed by [facility], [address] [place], [address], [place] Interpretation and review of laboratory results Abnormal [place] Sedimentation Rateon 019 Sed Rate 9 mm/h 0 - 10 mm/h [place] Basic Metabolic Panel Reflex Mgon 06-08-2018 Anion gap 3 molar conc 16 mmol/L Normal 7-16 [facility] Calcium mass conc 9.5 mg/dL Normal 8.6-10.2 [facility] Chloride molar conc 100 mmol/L Normal 98-107 [facility] CO2 molar conc 24 mmol/L Normal 22-29 [facility] Creatinine mass conc 0.9 mg/dL Normal 0.7-1.2 [facility] GFR/1.73 sq M predicted among blacks MDRD vol rate/area (S/P/Bld) mL/min/{1.73_m2} Normal [facility] GFR/1.73 sq M predicted among non-blacks MDRD vol rate/area (S/P/Bld) mL/min/{1.73_m2} Normal >=60 [facility] Comment on above: Result Comment: Pantograph Machine Set Up Operator silas Kidney Disease: less than 60 ml/min/1.73 sq.m. Kidney Failure: less than 15 ml/min/1.73 sq.m.Results valid for patients 18 years and older. Glucose mass conc 304 mg/dL High 74-99 [facility] Potassium reflex Mg 4.3 mmol/L Normal 3.5-5.0 [facility] Sodium molar conc 140 mmol/L Normal 132-146 [facility] Urea nitrogen mass conc 19 mg/dL Normal 6-20 [facility] CBC With Platelet and Differ entialon 06-08-2018 Abs Imm Granulocytes 0.03 E9/L Normal [facility] Basophils Auto #/vol (Bld) 0.06 E9/L Normal 0.00-0.20 [facility] Basophils/100 WBC Auto (Bld) 0.6 % Normal 0.0-2.0 [facility] Eosinophils Auto #/vol (Bld) 0.00 E9/L Low 0.05-0.50 [facility] Eosinophils/100 WBC Auto (Bld) 0.0 % Normal 0.0-6.0 [facility] Erythrocyte distribution width Auto Ratio (RBC) 12.2 fL Normal 11.5-15.0 [facility] Hematocrit Auto Volume Fraction (Bld) 43.9 % Normal 37.0-54.0 [facility] Hemoglobin mass conc (Bld) 14.8 g/dL Normal 12.5-16.5 [facility] Imm Granulocytes 0.3 % Normal 0.0-5.0 [facility] Lymphocytes Auto #/vol (Bld) 1.69 E9/L Normal 1.50-4.00 [facility] Lymphocytes/100 WBC Auto (Bld) 15.7 % Low 20.0-42.0 [facility] MCH Auto Entitic mass (RBC) 30.8 pg Normal 26.0-35.0 [facility] MCHC Auto mass conc (RBC) 33.7 % Normal 32.0-34.5 [facility] MCV Auto Entitic volume (RBC) 91.5 fL Normal 80.0-99.9 [facility] Monocytes Auto #/vol (Bld) 1.11 E9/L High 0.10-0.95 [facility] Monocytes/100 WBC Auto (Bld) 10.3 % Normal 2.0-12.0 [facility] Neutrophils Auto #/vol (Bld) 7.90 E9/L High 1.80-7.30 [facility] Neutrophils/100 WBC Auto (Bld) 73.1 % Normal 43.0-80.0 [facility] Platelet mean volume Auto Entitic volume (Bld) 10.1 fL Normal 7.0-12.0 [facility] Platelets Auto #/vol (Bld) 208 E9/L Normal 130-450 [facility] RBC Auto #/vol (Bld) 4.80 E12/L Normal 3.80-5.80 [facility] WBC Auto #/vol (Bld) 10.8 E9/L Normal 4.5-11.5 [facility] Lactic Acidon 06-08-2018 Lactate molar conc 2.6 mmol/L High 0.5-2.2 [facility] Lipaseon 06-08-2018 Lipase enzyme act/vol 9 U/L Low 13-60 [facility] Liver Panelon 06-08-2018 Albumin mass conc 4.6 g/dL Normal 3.5-5.2 [facility] ALP enzyme act/vol 62 U/L Normal 40-129 [facility] ALT enzyme act/vol 18 U/L Normal 0-40 [facility] AST enzyme act/vol 22 U/L Normal 0-39 [facility] Bilirubin Indirect 0.9 mg/dL Normal 0.0-1.0 [facility] Bilirubin mass conc 1.2 mg/dL Normal 0.0-1.2 [facility] Bilirubin.direct mass conc 0.3 mg/dL Normal 0.0-0.3 [facility] Protein mass conc 7.2 g/dL Normal 6.4-8.3 [facility] METER GLUCOSEon 06-08-2018 Glucose mass conc 256 mg/dL High 74-99 [facility] [facility] Glucose mass conc 304 mg/dL High 74-99 [facility] Troponinon 06-08-2018 Troponin I.cardiac mass conc ng/mL Normal 0.00-0.03 [facility] Comment on above: Result Comment: TROP ONIN T BLOOD LEVELS: 0.03 ng/mL Upper Reference Limit0.04 - 0.09 ng/mL Possible myocardial injury >= 0.10 ng/mL Myocardial injury Urinalysis, reflex to micros copicon 06-08-2018 Bilirubin Ql (U) Negative Normal Negative [facility] Clarity Nom (U) Clear Normal Clear [facility] Color Nom (U) Yellow Normal Straw/Yellow [facility] Glucose Ql (U) 500 mg/dL Abnormal Negative [facility] Hemoglobin Test strip Ql (U) Negative Normal Negative [facility] Ketones Ql (U) 40 mg/dL Abnormal Negative [facility] Leukocyte esterase Test strip Ql (U) Negative Normal Negative [facility] Nitrite Test strip Ql (U) Negative Normal Negative [facility] pH Test strip (U) 5.5 [pH] Normal 5.0-9.0 [facility] Protein Test strip Ql (U) Negative Normal Negative [facility] Specific gravity Relative Density (U) >=1.030 Normal 1.005-1.030 [facility] Urobilinogen Test strip Qn (U) 0.2 {Miguel'U}/dL Normal < 2.0 [facility] METER GLUCOSEon 03-31-2018 Glucose mass conc 153 mg/dL High 70-110 [facility] Glucose mass conc mg/dL Low 70-110 [facility] Vital Signs Date Time Vital Sign Value Performing Clinician Rolando ellis 03-15-2025 13:25-0400 Body height 193.04 cm EDWARD ERNA Work Phone: [facility] 03-15-2025 13:25-0400 Body mass index (BMI) [Ratio] 29.5 kg/m2 EDWARD ERNA Work Phone: [facility] 03-15-2025 13:25-0400 Body weight 110.22 kg EDWARD ERNA Work Phone: [facility] 03-15-2025 08:40-0400 Body height 193 cm Erin Morris MD Work Phone: [facility] 03-15-2025 08:40-0400 Body mass index (BMI) [Ratio] 29.31 kg/m2 Erin Morris MD Work Phone: [facility] 03-15-2025 08:40-0400 Body weight 109.23 kg Erin Morris MD Work Phone: [facility] 03-15-2025 08:40-0400 Diastolic blood pressure 80 mm[Hg] Erin Morris MD Work Phone: [facility] 03-15-2025 08:40-0400 Heart rate 97 /min Erin Morris MD Work Phone: [facility] 03-15-2025 08:40-0400 SaO2% (BldA) [Mass fraction] 97 % Erin Mroris MD Work Phone: [facility] 03-15-2025 08:40-0400 Systolic blood pressure 130 mm[Hg] Erin Morris MD Work Phone: [facility] 03-07-2025 08:27-0400 Body height 193 cm Robyn Taylor APRN.AMBULANCE ATTENDANT Work Phone: [facility] 03-07-2025 08:27-0400 Body mass index (BMI) [Ratio] 29.55 kg/m2 Robyn Taylor APRN.CNP Work Phone: [facility] 03-07-2025 08:27-0400 Body temperature 97.81 [degF] Robyn Temsic COVER OPERATOR.AMBULANCE ATTENDANT Work Phone: [facility] 03-07-2025 08:27-0400 Body weight 110.13 kg Robyn Temsic COVER OPERATOR.AMBULANCE ATTENDANT Work Phone: [facility] 03-07-2025 08:27-0400 Diastolic blood pressure 74 mm[Hg] Robyn Temsic COVER OPERATOR.AMBULANCE ATTENDANT Work Phone: [facility] 03-07-2025 08:27-0400 Heart rate 92 /min Robyn Temsic COVER OPERATOR.AMBULANCE ATTENDANT Work Phone: [facility] 03-07-2025 08:27-0400 Respiratory rate 16 /min Robyn Temsic COVER OPERATOR.AMBULANCE ATTENDANT Work Phone: [facility] 03-07-2025 08:27-0400 SaO2% (BldA) [Mass fraction] 98 % Robyn Temsic COVER OPERATOR.AMBULANCE ATTENDANT Work Phone: [facility] 03-07-2025 08:27-0400 Systolic blood pressure 122 mm[Hg] Robyn Temsic COVER OPERATOR.AMBULANCE ATTENDANT Work Phone: [facility] 02-28-2025 11:33-0400 Body height 193 cm Vamshi Benson MD Work Phone: [facility] Comment on above: patient reports 02-28-2025 11:33-0400 Diastolic blood pressure 70 mm[Hg] Vamshi Benson MD Work Phone: [facility] 02-28-2025 11:33-0400 Heart rate 95 /min Vamshi Benson MD Work Phone: [facility] 02-28-2025 11:33-0400 SaO2% (BldA) [Mass fraction] 98 % Vamshi Benson MD Work Phone: [facility] 02-28-2025 11:33-0400 Systolic blood pressure 122 mm[Hg] Vamshi Benson MD Work Phone: [facility] 02-27-2025 10:35-0400 Body mass index (BMI) [Ratio] 29.94 kg/m2 Renay Garrett MD Work Phone: [facility] 02-27-2025 10:35-0400 Body weight 111.58 kg Renay Garrett MD Work Phone: [facility] 02-27-2025 10:35-0400 Diastolic blood pressure 74 mm[Hg] Renay Garrett MD Work Phone: [facility] 02-27-2025 10:35-0400 Heart rate 97 /min Renay Garrett MD Work Phone: [facility] 02-27-2025 10:35-0400 Respiratory rate 18 /min Renay Garrett MD Work Phone: [facility] 02-27-2025 10:35-0400 SaO2% (BldA) [Mass fraction] 97 % Renay Garrett MD Work Phone: [facility] 02-27-2025 10:35-0400 Systolic blood pressure 118 mm[Hg] Renay Garrett MD Work Phone: [facility] 02-21-2025 12:24-0400 Body height 193 cm Madison Regan MD Work Phone: [facility] 02-21-2025 12:24-0400 Body height 193.04 cm Madison Regan MD Work Phone: [facility] 02-21-2025 12:24-0400 Body mass index (BMI) [Ratio] 29.81 kg/m2 Madison Regan MD Work Phone: [facility] 02-21-2025 12:24-0400 Body weight 111 kg Madison Regan MD Work Phone: [facility] 02-21-2025 12:24-0400 Body weight 110.68 kg Madison Regan MD Work Phone: [facility] 02-21-2025 12:24-0400 BP SITE #1 Madison Regan MD Work Phone: [facility] 02-21-2025 12:24-0400 Diastolic blood pressure 81 mm[Hg] Madison Regan MD Work Phone: [facility] 02-21-2025 12:24-0400 Heart rate 98 /min Madison Regan MD Work Phone: [facility] 02-21-2025 12:24-0400 HGHTCHNVIS Madison Regan MD Work Phone: [facility] 02-21-2025 12:24-0400 Systolic blood pressure 142 mm[Hg] Madison Regan MD Work Phone: [facility] 02-21-2025 12:24-0400 VITALSDONE Madison Regan MD Work Phone: [facility] 01-24-2025 13:34-0400 Body temperature 99.39 [degF] Robyn Temsic COVER OPERATOR.AMBULANCE ATTENDANT Work Phone: [facility] 01-24-2025 13:31-0400 Body height 193 cm Robyn Temsic COVER OPERATOR.AMBULANCE ATTENDANT Work Phone: [facility] 01-24-2025 13:31-0400 Body mass index (BMI) [Ratio] 28.7 kg/m2 Robyn Temsic COVER OPERATOR.AMBULANCE ATTENDANT Work Phone: [facility] 01-24-2025 13:31-0400 Body weight 106.96 kg Robyn Temsic COVER OPERATOR.AMBULANCE ATTENDANT Work Phone: [facility] 01-24-2025 13:31-0400 Diastolic blood pressure 74 mm[Hg] Robyn Temsic COVER OPERATOR.AMBULANCE ATTENDANT Work Phone: [facility] 01-24-2025 13:31-0400 Heart rate 110 /min Robyn Temsic COVER OPERATOR.AMBULANCE ATTENDANT Work Phone: [facility] 01-24-2025 13:31-0400 Respiratory rate 16 /min Robyn Temsic COVER OPERATOR.AMBULANCE ATTENDANT Work Phone: [facility] 01-24-2025 13:31-0400 SaO2% (BldA) [Mass fraction] 98 % Robyn Temsic COVER OPERATOR.AMBULANCE ATTENDANT Work Phone: [facility] 01-24-2025 13:31-0400 Systolic blood pressure 120 mm[Hg] Robyn Temsic COVER OPERATOR.AMBULANCE ATTENDANT Work Phone: [facility] 01-10-2025 15:48-0400 Body height 193 cm Robyn Temsic COVER OPERATOR.AMBULANCE ATTENDANT Work Phone: [facility] 01-10-2025 15:48-0400 Body mass index (BMI) [Ratio] 29.34 kg/m2 Robyn Temsic COVER OPERATOR.AMBULANCE ATTENDANT Work Phone: [facility] 01-10-2025 15:48-0400 Body temperature 97.3 [degF] Robyn Temsic COVER OPERATOR.AMBULANCE ATTENDANT Work Phone: [facility] 01-10-2025 15:48-0400 Body weight 109.32 kg Robyn Temsic COVER OPERATOR.AMBULANCE ATTENDANT Work Phone: [facility] 01-10-2025 15:48-0400 Diastolic blood pressure 86 mm[Hg] Robyn Temsic COVER OPERATOR.AMBULANCE ATTENDANT Work Phone: [facility] 01-10-2025 15:48-0400 Heart rate 70 /min Robyn Temsic COVER OPERATOR.AMBULANCE ATTENDANT Work Phone: [facility] 01-10-2025 15:48-0400 Respiratory rate 18 /min Robyn Temsic COVER OPERATOR.AMBULANCE ATTENDANT Work Phone: [facility] 01-10-2025 15:48-0400 SaO2% (BldA) [Mass fraction] 97 % Robyn Temsic COVER OPERATOR.AMBULANCE ATTENDANT Work Phone: [facility] 01-10-2025 15:48-0400 Systolic blood pressure 124 mm[Hg] Robyn Temsic COVER OPERATOR.AMBULANCE ATTENDANT Work Phone: [facility] 01-07-2025 10:46-0400 Body height 193 cm Delfina Emch PA-C Work Phone: [facility] 01-07-2025 10:46-0400 Body mass index (BMI) [Ratio] 29.65 kg/m2 Delfina Emch PA-C Work Phone: [facility] 01-07-2025 10:46-0400 Body temperature 98.1 [degF] Delfina Emch PA-C Work Phone: [facility] 01-07-2025 10:46-0400 Body weight 110.5 kg Delfina Emch PA-C Work Phone: [facility] 01-07-2025 10:46-0400 Diastolic blood pressure 68 mm[Hg] Delfina Emch PA-C Work Phone: [facility] 01-07-2025 10:46-0400 Heart rate 84 /min Delfina Emch PA-C Work Phone: [facility] 01-07-2025 10:46-0400 SaO2% (BldA) [Mass fraction] 96 % Delfina Emch PA-C Work Phone: [facility] 01-07-2025 10:46-0400 Systolic blood pressure 106 mm[Hg] Delfina Emch PA-C Work Phone: [facility] 12-26-2024 07:24-0400 SaO2% (BldA) [Mass fraction] 97 % [facility] Comment on above: Order Comment: Specimen Type: ARTERIAL B LOOD SPECIMENOrdering Facility: [facility] Address: [address] [place] [address] Performed By: #### A LLBG ####[facility] [id number] [place] [address] [place] 12-26-2024 05:33-0400 SaO2% (BldA) [Mass fraction] 98 % [facility] Comment on above: Order Comment: Specimen Type: ARTERIAL B LOOD SPECIMENOrdering Facility: [facility] Address: [address] [place], [place] [id number] Performed By: #### A LLBG ####[facility] [id number] [address] [address] [place] 12-26-2024 03:38-0400 SaO2% (BldA) [Mass fraction] 98 % [facility] Comment on above: Order Comment: Specimen Type: ARTERIAL B LOOD SPECIMENOrdering Facility: [facility] Address: [address] [place], [place] [id number] Performed By: #### A LLBG ####[facility] [id number] [address] [address] [place] 12-26-2024 02:01-0400 SaO2% (BldA) [Mass fraction] 97 % [facility] Comment on above: Order Comment: Specimen Type: ARTERIAL B LOOD SPECIMENOrdering Facility: [facility] Address: [address] [place], [place] [id number] Performed By: #### A LLBG ####[facility] [id number] [address] [address] [place] 12-25-2024 23:26-0400 SaO2% (BldA) [Mass fraction] 99 % [facility] Comment on above: Order Comment: Specimen Type: ARTERIAL B LOOD SPECIMENOrdering Facility: [facility] Address: [address] [place], [place] [id number] Performed By: #### A LLBG ####[facility] [id number] [address] [address] [place] 12-25-2024 21:56-0400 SaO2% (BldA) [Mass fraction] 99 % [facility] Comment on above: Order Comment: Specimen Type: ARTERIAL B LOOD SPECIMENOrdering Facility: [facility] Address: [address] [place] [address] Performed By: #### A LLBG ####[facility] [id number] [address] [address] [facility] [place] 12-25-2024 19:37-0400 SaO2% (BldA) [Mass fraction] 96 % [facility] Comment on above: Order Comment: Specimen Type: ARTERIAL B LOOD SPECIMENOrdering Facility: [facility] Address: [address] [place], [place] [id number] Performed By: #### A LLBG ####[facility] [id number] [address] [address] [place] 12-25-2024 18:28-0400 SaO2% (BldA) [Mass fraction] 97 % [facility] Comment on above: Order Comment: Specimen Type: ARTERIAL B LOOD SPECIMENOrdering Facility: [facility] Address: [address] [place], [place] [address] Performed By: #### A LLBG ####[facility] [id number] [address] [address] [place] 12-25-2024 17:05-0400 SaO2% (BldA) [Mass fraction] 99 % [facility] Comment on above: Order Comment: Specimen Type: ARTERIAL B LOOD SPECIMENOrdering Facility: [facility] Address: [address] [place] [id number] Performed By: #### A LLBG ####[facility] [id number] [address] [address] [place] 12-25-2024 15:14-0400 SaO2% (BldA) [Mass fraction] 100 % [facility] Comment on above: Order Comment: Specimen Type: ARTERIAL B LOOD SPECIMENOrdering Facility: [facility] Address: [address] [place], [place] [id number] Performed By: #### A LLBG ####[facility] [id number] [address] [address] [facility] 12-25-2024 13:54-0400 SaO2% (BldA) [Mass fraction] 99 % [facility] Comment on above: Order Comment: Specimen Type: ARTERIAL B LOOD SPECIMENOrdering Facility: [facility] Address: [address] [place], [place] [id number] Performed By: #### A LLBG ####[facility] [id number] [place] [id number] [facility] 12-25-2024 13:21-0400 SaO2% (BldA) [Mass fraction] 100 % [facility] Comment on above: Order Comment: Specimen Type: ARTERIAL B LOOD SPECIMENOrdering Facility: [facility] Address: [address] [place], [place] [address] Performed By: #### A LLBG ####[facility] [id number] [place] [id number] [facility] 12-25-2024 11:40-0400 SaO2% (BldA) [Mass fraction] 100 % [facility] Comment on above: Order Comment: Specimen Type: ARTERIAL B LOOD SPECIMENOrdering Facility: [facility] Address: [address] [place], [place] [address] Performed By: #### A LLMG ####[facility] [id number] [address] [address] [facility] 12-25-2024 11:00-0400 SaO2% (BldA) [Mass fraction] 100 % [facility] Comment on above: Order Comment: Specimen Type: ARTERIAL B LOOD SPECIMENOrdering Facility: [facility] Address: [address] [place], [place] [address] Performed By: #### A LLBG ####[facility] [id number] [place] [id number] [place] [facility] 12-25-2024 10:15-0400 SaO2% (BldA) [Mass fraction] 100 % [facility] Comment on above: Order Comment: Specimen Type: ARTERIAL B LOOD SPECIMENOrdering Facility: [facility] Address: [address] [place] [address] Performed By: #### A LLBG ####[facility] [id number] [place] [id number] [facility] 12-25-2024 07:26-0400 SaO2% (BldA) [Mass fraction] 99 % [facility] Comment on above: Order Comment: Specimen Type: ARTERIAL B LOOD SPECIMENOrdering Facility: [facility] Address: [address] [place] [address] Performed By: #### A LLBG ####[facility] [id number] [place] [id number] [facility] 12-20-2024 09:55-0400 Diastolic blood pressure 76 mm[Hg] Jt King MD Work Phone: [facility] 12-20-2024 09:55-0400 Systolic blood pressure 121 mm[Hg] Jt King MD Work Phone: [facility] 12-20-2024 09:54-0400 Body height 193 cm Jt King MD Work Phone: [facility] 12-20-2024 09:54-0400 Body mass index (BMI) [Ratio] 29.58 kg/m2 Jt King MD Work Phone: [facility] 12-20-2024 09:54-0400 Body weight 110.22 kg Jt King MD Work Phone: [facility] 12-20-2024 09:54-0400 Heart rate 77 /min Jt King MD Work Phone: [facility] 12-20-2024 09:54-0400 SaO2% (BldA) [Mass fraction] 98 % Jt King MD Work Phone: [facility] 12-19-2024 12:49-0400 Body mass index (BMI) [Ratio] 34.38 kg/m2 Crow Beth MD Work Phone: [facility] 12-19-2024 12:49-0400 Body weight 111.8 kg Crow Beth MD Work Phone: [facility] 12-19-2024 12:49-0400 Diastolic blood pressure 73 mm[Hg] Crow Beth MD Work Phone: [facility] 12-19-2024 12:49-0400 Heart rate 86 /min Crow Beth MD Work Phone: [facility] 12-19-2024 12:49-0400 Systolic blood pressure 124 mm[Hg] Crow Beth MD Work Phone: [facility] 11-20-2024 15:50-0400 Diastolic blood pressure 70 mm[Hg] [facility] Comment on above: sitting on edge of bed 11-20-2024 15:50-0400 Heart rate 84 /min [facility] 11-20-2024 15:50-0400 Respiratory rate 10 /min [facility] 11-20-2024 15:50-0400 SaO2% (BldA) [Mass fraction] 95 % [facility] 11-20-2024 15:50-0400 Systolic blood pressure 126 mm[Hg] [facility] Comment on above: sitting on edge of bed 11-20-2024 14:14-0400 Body temperature 97.5 [degF] [facility] 08-24-2024 09:22-0500 Body height 193 cm Erin Morris MD Work Phone: [facility] 08-24-2024 09:22-0500 Body mass index (BMI) [Ratio] 28.07 kg/m2 Erin Morris MD Work Phone: [facility] 08-24-2024 09:22-0500 Body weight 104.6 kg Erin Morris MD Work Phone: [facility] 08-24-2024 09:22-0500 Diastolic blood pressure 60 mm[Hg] Erin Morris MD Work Phone: [facility] 08-24-2024 09:22-0500 Heart rate 78 /min Erin Morris MD Work Phone: [facility] 08-24-2024 09:22-0500 SaO2% (BldA) [Mass fraction] 97 % Erin Morris MD Work Phone: [facility] 08-24-2024 09:22-0500 Systolic blood pressure 90 mm[Hg] Erin Morris MD Work Phone: [facility] 05-14-2024 09:17-0500 Body mass index (BMI) [Ratio] 30.11 kg/m2 Luz Maria Perez MD Work Phone: [facility] 05-14-2024 09:17-0500 Body weight 100.7 kg Luz Maria Perez MD Work Phone: [facility] 05-14-2024 09:17-0500 Heart rate 82 /min Luz Maria Perez MD Work Phone: [facility] 05-14-2024 09:17-0500 SaO2% (BldA) [Mass fraction] 99 % Luz Maria Perez MD Work Phone: [facility] 04-11-2024 05:10-0400 Blood Pressure Location AMANDA [employer] [facility] 04-11-2024 05:10-0400 Blood Pressure Method [facility] [employer] [facility] 04-11-2024 05:10-0400 Diastolic Blood Pressure Non-Invasive 94 mm[Hg] AMANDA [employer]JAA DO [facility] 04-11-2024 05:10-0400 Heart rate 93 /min NIDAL CHOUJAA DO [facility] 04-11-2024 05:10-0400 Respiratory rate 22 /min NIDAL CHOUJAA DO [facility] 04-11-2024 05:10-0400 Systolic Blood Pressure Non-Invasive 136 mm[Hg] NIDAL CHOUJAA DO [facility] 04-11-2024 00:37-0400 [facility] 04-11-2024 00:37-0400 Blood Pressure Location NIDAL CHOUJAA DO [facility] 04-11-2024 00:37-0400 [facility] 04-11-2024 00:37-0400 Body temperature 98.24 [degF] [facility] 04-11-2024 00:37-0400 Body weight 98.6 kg NIDAL CHOUJAA DO [facility] 04-11-2024 00:37-0400 Diastolic Blood Pressure Non-Invasive 82 mm[Hg] NIDAL CHOUJAA DO [facility] 04-11-2024 00:37-0400 Heart rate 87 /min NIDAL CHOUJAA DO [facility] 04-11-2024 00:37-0400 Respiratory rate 20 /min NIDAL CHOUJAA DO [facility] 04-11-2024 00:37-0400 Systolic Blood Pressure Non-Invasive 132 mm[Hg] NIDAL CHOUJAA DO [facility] 04-06-2024 09:10-0400 Diastolic Blood Pressure Non-Invasive 99 mm[Hg] ROMAN FERNÁNDEZ MD [facility] 04-06-2024 09:10-0400 Heart rate 82 /min ROMAN FERNÁNDEZ MD [facility] 04-06-2024 09:10-0400 Respiratory rate 16 /min ROMAN FERNÁNDEZ MD [address] 04-06-2024 09:10-0400 Systolic Blood Pressure Non-Invasive 153 mm[Hg] ROMAN FERNÁNDEZ MD [address] 04-06-2024 08:12-0400 Diastolic Blood Pressure Non-Invasive 75 mm[Hg] ROMAN FERNÁNDEZ MD [address] [place] [address] 04-06-2024 08:12-0400 Heart rate 88 /min ROMAN FERNÁNDEZ MD [address] [place] [address] 04-06-2024 08:12-0400 Respiratory rate 16 /min ROMAN FERNÁNDEZ MD [address] 04-06-2024 08:12-0400 Systolic Blood Pressure Non-Invasive 140 mm[Hg] ROMAN FERNÁNDEZ MD [address] [place] [address] 04-06-2024 06:13-0400 Blood Pressure Cuff Size ROMAN FERNÁNDEZ MD [address] [place] [address] 04-06-2024 06:13-0400 Blood Pressure Location ROMAN FERNÁNDEZ MD [address] 04-06-2024 06:13-0400 Blood Pressure Method ROMAN FERNÁNDEZ MD [address] 04-06-2024 06:13-0400 Diastolic Blood Pressure Non-Invasive 82 mm[Hg] ROMAN FERNÁNDEZ MD [address] [place] [address] 04-06-2024 06:13-0400 Heart rate 80 /min ROMAN FERNÁNDEZ MD [address] [place] [address] 04-06-2024 06:13-0400 Mean blood pressure 97 mm[Hg] ROMAN FERNÁNDEZ MD [facility] 04-06-2024 06:13-0400 Respiratory rate 16 /min ROMAN FERNÁNDEZ MD [facility] 04-06-2024 06:13-0400 Systolic Blood Pressure Non-Invasive 127 mm[Hg] ROMAN FERNÁNDEZ MD [facility] 04-06-2024 04:38-0400 Body temperature 97.16 [degF] ROMAN FERNÁNDEZ MD [facility] 04-06-2024 04:38-0400 Body weight 101.2 kg ROMAN FERNÁNDEZ MD [address] [place] [address] 04-06-2024 04:38-0400 Heart rate 92 /min ROMAN FERNÁNDEZ MD [facility] 03-29-2024 11:15-0400 Diastolic Blood Pressure Non-Invasive 81 mm[Hg] ARLENE BARNETT DO [facility] 03-29-2024 11:15-0400 Heart rate 81 /min ARLENE BARNETT DO [facility] 03-29-2024 11:15-0400 Respiratory rate 18 /min ARLENE BARNETT DO [facility] 03-29-2024 11:15-0400 Systolic Blood Pressure Non-Invasive 126 mm[Hg] ARLENE BARNETT DO [facility] 03-29-2024 06:16-0400 Diastolic Blood Pressure Non-Invasive 79 mm[Hg] ARLENE BARNETT DO [facility] 03-29-2024 06:16-0400 Heart rate 73 /min ARLENE BARNETT DO [facility] 03-29-2024 06:16-0400 Systolic Blood Pressure Non-Invasive 128 mm[Hg] ARLENE BARNETT DO [facility] 03-29-2024 03:45-0400 Diastolic Blood Pressure Non-Invasive 76 mm[Hg] ARLENE BARNETT DO [facility] 03-29-2024 03:45-0400 Heart rate 72 /min ARLENE BARNETT [facility] 03-29-2024 03:45-0400 Respiratory rate 18 /min ARLENE BARNETT Kuaiyong [facility] 03-29-2024 03:45-0400 Systolic Blood Pressure Non-Invasive 122 mm[Hg] ARLENE BARNETT DO [facility] 03-29-2024 01:46-0400 Body temperature 98.24 [degF] ARLENE BARNETT DO [facility] 03-29-2024 01:46-0400 Body weight 102.5 kg ARLENE BARNETT [facility] 03-29-2024 01:46-0400 Respiratory rate 20 /min ARLENE BARNETT Ku[facility]ong [facility] 02-07-2024 01:14-0400 SaO2% (BldA) [Mass fraction] 97 % NIMESH FONSECA [facility] Comment on above: Order Comment: Specimen Type: BLOOD SPEC IMEN Ordering Facility: [facility] Address: [address] [place] [address] Performed By: #### 5 [id number] #### [facility] CLIA [id number] [address] [place] [address] [place] #### [id number] #### [facility] CLIA [id number] [address] [place] [address] [place] 02-03-2024 [id number] Body height 193 cm Bonilla Pollock MD Work Phone: [facility] 02-03-2024 15:11-0400 Body mass index (BMI) [Ratio] 24.34 kg/m2 Bonilla Pollock MD Work Phone: [facility] 02-03-2024 15:11-0400 Body temperature 98.1 [degF] Bonilla Pollock MD Work Phone: [facility] 02-03-2024 15:11-0400 Body weight 90.72 kg Bonilla Pollock MD Work Phone: [facility] 02-03-2024 15:11-0400 Diastolic blood pressure 68 mm[Hg] Bonilla Pollock MD Work Phone: [facility] 02-03-2024 15:11-0400 Heart rate 90 /min Bonilla Pollock MD Work Phone: [facility] 02-03-2024 15:11-0400 Respiratory rate 14 /min Bonilla Pollock MD Work Phone: [facility] 02-03-2024 15:11-0400 SaO2% (BldA) [Mass fraction] 97 % Bonilla Pollock MD Work Phone: [facility] 02-03-2024 15:11-0400 Systolic blood pressure 117 mm[Hg] Bonilla Pollock MD Work Phone: [facility] 02-01-2024 19:04-0400 Diastolic Blood Pressure Non-Invasive 77 mm[Hg] MIQUEL BURNETT MD [facility] 02-01-2024 19:04-0400 Heart rate 81 /min MIQUEL BURNETT MD [facility] 02-01-2024 19:04-0400 Reason For Taking VItal Signs MIQUEL BURNETT MD [facility] 02-01-2024 19:04-0400 Respiratory rate 17 /min MIQUEL BURNETT MD [facility] 02-01-2024 19:04-0400 Systolic Blood Pressure Non-Invasive 131 mm[Hg] MIQUEL BURNETT MD [facility] 02-01-2024 16:30-0400 Diastolic Blood Pressure Non-Invasive 88 mm[Hg] MIQUEL BURNETT MD [facility] 02-01-2024 16:30-0400 Heart rate 79 /min MIQUEL BURNETT MD [facility] 02-01-2024 16:30-0400 Respiratory rate 17 /min MIQUEL BURNETT MD [facility] 02-01-2024 16:30-0400 Systolic Blood Pressure Non-Invasive 147 mm[Hg] MIQUEL BURNETT MD [facility] 02-01-2024 12:55-0400 Body temperature 98.06 [degF] MIQUEL BURNETT MD [facility] 02-01-2024 12:55-0400 Body weight 94 kg MIQUEL BURNETT MD [facility] 02-01-2024 12:55-0400 Diastolic Blood Pressure Non-Invasive 74 mm[Hg] MIQUEL BURNETT MD [facility] 02-01-2024 12:55-0400 Heart rate 76 /min MIQUEL BURNETT MD [facility] 02-01-2024 12:55-0400 Respiratory rate 18 /min MIQUEL BURNETT MD [facility] 02-01-2024 12:55-0400 Systolic Blood Pressure Non-Invasive 119 mm[Hg] MIQUEL BURNETT MD [facility] 01-05-2024 04:08-0400 Blood Pressure Cuff Size SEAN LIND MD [facility] 01-05-2024 04:08-0400 Blood Pressure Location SEAN LIND MD [facility] 01-05-2024 04:08-0400 Blood Pressure Method SEAN LIND MD [facility] 01-05-2024 04:08-0400 Body height 193 cm SEAN LIND MD [facility] 01-05-2024 04:08-0400 Body temperature 97.88 [degF] SEAN LIND MD [facility] 01-05-2024 04:08-0400 Body weight 101 kg SEAN LIND MD [facility] 01-05-2024 04:08-0400 Diastolic Blood Pressure Non-Invasive 76 mm[Hg] SEAN LIND MD [facility] 01-05-2024 04:08-0400 Heart rate 82 /min SEAN LIND MD [facility] 01-05-2024 04:08-0400 Respiratory rate 16 /min SEAN LIND MD [facility] 01-05-2024 04:08-0400 Systolic Blood Pressure Non-Invasive 121 mm[Hg] SEAN LIND MD [facility] 11-24-2023 08:08-0400 Body height 193 cm Sruthi Ambrosio APRN.AMBULANCE ATTENDANT Work Phone: [facility] 11-24-2023 08:08-0400 Body mass index (BMI) [Ratio] 22.52 kg/m2 Sruthi Ambrosio APRN.AMBULANCE ATTENDANT Work Phone: [facility] 11-24-2023 08:08-0400 Body temperature 98.01 [degF] Sruthi Ambrosio APRN.AMBULANCE ATTENDANT Work Phone: [facility] 11-24-2023 08:08-0400 Body weight 83.92 kg Sruthi Ambrosio APRN.AMBULANCE ATTENDANT Work Phone: [facility] 11-24-2023 08:08-0400 Diastolic blood pressure 88 mm[Hg] Sruthi Ambrosio APRN.AMBULANCE ATTENDANT Work Phone: [facility] 11-24-2023 08:08-0400 Heart rate 83 /min Sruthi Ambrosio APRN.AMBULANCE ATTENDANT Work Phone: [facility] 11-24-2023 08:08-0400 Respiratory rate 18 /min Sruthi Ambrosio APRN.AMBULANCE ATTENDANT Work Phone: [facility] 11-24-2023 08:08-0400 SaO2% (BldA) [Mass fraction] 97 % Sruthi Ambrosio COVER OPERATOR.AMBULANCE ATTENDANT Work Phone: [facility] 11-24-2023 08:08-0400 Systolic blood pressure 138 mm[Hg] Sruthi Ambrosio APRN.AMBULANCE ATTENDANT Work Phone: [facility] 05-06-2023 11:20-0400 Body height 182.9 cm Luz Maria Perez MD Work Phone: [facility] 05-06-2023 11:20-0400 Body mass index (BMI) [Ratio] 30.24 kg/m2 Luz Maria Perez MD Work Phone: [facility] 05-06-2023 11:20-0400 Body weight 101.15 kg Luz Maria Perez MD Work Phone: [facility] 05-06-2023 11:20-0400 Diastolic blood pressure 72 mm[Hg] Luz Maria Perez MD Work Phone: [facility] 05-06-2023 11:20-0400 Heart rate 76 /min Luz Maria Perez MD Work Phone: [facility] 05-06-2023 11:20-0400 SaO2% (BldA) [Mass fraction] 98 % Luz Maria Perez MD Work Phone: [facility] 05-06-2023 11:20-0400 Systolic blood pressure 110 mm[Hg] Luz Maria Perez MD Work Phone: [facility] 03-20-2023 11:44-0400 Body height 193.04 cm [facility] 03-20-2023 11:44-0400 Body mass index (BMI) [Ratio] 26.9 kg/m2 [facility] 03-20-2023 11:44-0400 Body temperature 97.8 [degF] [facility] 03-20-2023 11:44-0400 Body weight 100.6 kg [facility] 03-20-2023 11:44-0400 Diastolic blood pressure 81 mm[Hg] [facility] 03-20-2023 11:44-0400 Heart rate 95 /min [facility] 03-20-2023 11:44-0400 Respiratory rate 18 /min [facility] 03-20-2023 11:44-0400 SaO2% (BldA) [Mass fraction] 97 % [facility] 03-20-2023 11:44-0400 Systolic blood pressure 127 mm[Hg] [facility] 02-17-2023 13:18-0400 Body height 190.5 cm Dwayne Folk COVER OPERATOR.CN P Work Phone: [facility] 02-17-2023 13:18-0400 Body weight 83.73 kg Dwayne Folk COVER OPERATOR.CN P Work Phone: [facility] 02-17-2023 13:18-0400 Diastolic blood pressure 61 mm[Hg] Dwayne Folk COVER OPERATOR.AMBULANCE ATTENDANT Work Phone: [facility] 02-17-2023 13:18-0400 Heart rate 77 /min Dwayne Folk COVER OPERATOR.CN P Work Phone: [facility] 02-17-2023 13:18-0400 Systolic blood pressure 97 mm[Hg] Dwayne Folk COVER OPERATOR.AMBULANCE ATTENDANT Work Phone: [facility] 02-16-2023 14:43-0400 Diastolic Blood Pressure Non-Invasive 63 1 SUMIT BLOOM MD [facility] 02-16-2023 14:43-0400 Heart rate 81 /min SUMIT BLOOM MD [facility] 02-16-2023 14:43-0400 Systolic Blood Pressure Non-Invasive 101 1 SUMIT BLOOM MD [facility] 02-16-2023 12:16-0400 Diastolic Blood Pressure Non-Invasive 77 1 SUMIT BLOOM MD [facility] 02-16-2023 12:16-0400 Heart rate 79 /min SMUIT BLOOM MD [facility] 02-16-2023 12:16-0400 Systolic Blood Pressure Non-Invasive 124 1 SUMIT BLOOM MD [facility] 02-16-2023 10:28-0400 Heart rate 68 /min SUMIT BLOOM MD [facility] 02-16-2023 10:28-0400 Respiratory rate 16 /min SUMIT BLOOM MD [facility] 02-16-2023 09:34-0400 Body temperature 96.62 [degF] SUMIT BLOOM MD [facility] 02-16-2023 09:34-0400 Body weight 83.5 kg SUMIT BLOOM MD [facility] 02-16-2023 09:34-0400 Diastolic Blood Pressure Non-Invasive 73 1 SUMIT BLOOM MD [facility] 02-16-2023 09:34-0400 Respiratory rate 16 /min SUMIT BLOOM MD [facility] 02-16-2023 09:34-0400 Systolic Blood Pressure Non-Invasive 116 1 SUMIT BLOOM MD [facility] 01-07-2023 09:49-0400 Body height 190.5 cm Sruthi Ambrosio APRN.AMBULANCE ATTENDANT Work Phone: [facility] 01-07-2023 09:49-0400 Body temperature 97.5 [degF] Sruthi Ambrosio APRN.AMBULANCE ATTENDANT Work Phone: [facility] 01-07-2023 09:49-0400 Body weight 88.63 kg Sruthi Ambrosio APRN.AMBULANCE ATTENDANT Work Phone: [facility] 01-07-2023 09:49-0400 Diastolic blood pressure 64 mm[Hg] Sruthi Ambrosio APRN.AMBULANCE ATTENDANT Work Phone: [facility] 01-07-2023 09:49-0400 Heart rate 98 /min Sruthi Ambrosio APRN.AMBULANCE ATTENDANT Work Phone: [facility] 01-07-2023 09:49-0400 Respiratory rate 14 /min Sruthi Ambrosio COVER OPERATOR.AMBULANCE ATTENDANT Work Phone: [facility] 01-07-2023 09:49-0400 SaO2% (BldA) [Mass fraction] 94 % Sruthi Ambrosio COVER OPERATOR.AMBULANCE ATTENDANT Work Phone: [facility] 01-07-2023 09:49-0400 Systolic blood pressure 122 mm[Hg] Sruthi Ambrosio COVER OPERATOR.AMBULANCE ATTENDANT Work Phone: [facility] 12-10-2022 14:21-0400 Body temperature 97.81 [degF] Brit Banuelos MD Work Phone: [facility] 12-10-2022 14:21-0400 Diastolic blood pressure 65 mm[Hg] Brit Banuelos MD Work Phone: [facility] 12-10-2022 14:21-0400 Heart rate 89 /min Brit Banuelos MD Work Phone: [facility] 12-10-2022 14:21-0400 Respiratory rate 18 /min Brit Banuelos MD Work Phone: [facility] 12-10-2022 14:21-0400 SaO2% (BldA) [Mass fraction] 96 % Brit Banuelos MD Work Phone: [facility] 12-10-2022 14:21-0400 Systolic blood pressure 140 mm[Hg] Brit Banuelos MD Work Phone: [facility] 11-22-2022 15:28-0400 Body temperature 98.91 [degF] Brit Banuelos MD Work Phone: [facility] 11-22-2022 15:28-0400 Body weight 83.46 kg Brit Banuelos MD Work Phone: [facility] 11-22-2022 15:28-0400 Diastolic blood pressure 70 mm[Hg] Brit Banuelos MD Work Phone: [facility] 11-22-2022 15:28-0400 Heart rate 99 /min Brit Banuelos MD Work Phone: [facility] 11-22-2022 15:28-0400 Respiratory rate 16 /min Brit Banuelos MD Work Phone: [facility] 11-22-2022 15:28-0400 SaO2% (BldA) [Mass fraction] 98 % Brit Banuelos MD Work Phone: [facility] 11-22-2022 15:28-0400 Systolic blood pressure 117 mm[Hg] Brit Banuelos MD Work Phone: [facility] 11-01-2022 11:09-0400 Body height 182.9 cm Luz Maria Perez MD Work Phone: [facility] 11-01-2022 11:09-0400 Body mass index (BMI) [Ratio] 25.77 kg/m2 Luz Maria Perez MD Work Phone: [facility] 11-01-2022 11:09-0400 Body weight 86.18 kg Luz Maria Perez MD Work Phone: [facility] 11-01-2022 11:09-0400 Diastolic blood pressure 60 mm[Hg] Luz Maria Perez MD Work Phone: [facility] 11-01-2022 11:09-0400 Heart rate 90 /min Luz Maria Perez MD Work Phone: [facility] 11-01-2022 11:09-0400 SaO2% (BldA) [Mass fraction] 99 % Luz Maria Perez MD Work Phone: [facility] 11-01-2022 11:09-0400 Systolic blood pressure 94 mm[Hg] Luz Maria Perez MD Work Phone: [facility] 08-25-2022 18:07-0500 Diastolic blood pressure 33 mm[Hg] Dulce Maria Barba MD Work Phone: [facility] 08-25-2022 18:07-0500 Heart rate 100 /min Dulce Maria Barba MD Work Phone: [facility] 08-25-2022 18:07-0500 Respiratory rate 14 /min Dulce Maria Barba MD Work Phone: [facility] 08-25-2022 18:07-0500 SaO2% (BldA) [Mass fraction] 99 % Dulce Maria Barba MD Work Phone: [facility] 08-25-2022 18:07-0500 Systolic blood pressure 91 mm[Hg] Dulce Maria Barba MD Work Phone: [facility] 08-25-2022 17:17-0500 Body mass index (BMI) [Ratio] 25.56 kg/m2 Dulce Maria Barba MD Work Phone: [facility] 08-25-2022 17:17-0500 Body temperature 98.2 [degF] Dulce Maria Barba MD Work Phone: [facility] 08-25-2022 17:17-0500 Body weight 95.25 kg Dulce Maria Barba MD Work Phone: [facility] 07-21-2022 13:11-0500 Body height 192.4 cm Dwayne Folk COVER OPERATOR.CN P Work Phone: [facility] 07-21-2022 13:11-0500 Body weight 107.41 kg Dwayne Folk COVER OPERATOR.CN P Work Phone: [facility] 07-21-2022 13:11-0500 Diastolic blood pressure 81 mm[Hg] Dwayne Folk COVER OPERATOR.AMBULANCE ATTENDANT Work Phone: [facility] 07-21-2022 13:11-0500 Heart rate 101 /min Dwayne Folk COVER OPERATOR.CN P Work Phone: [facility] 07-21-2022 13:11-0500 SaO2% (BldA) [Mass fraction] 98 % Dwayne Folk COVER OPERATOR.AMBULANCE ATTENDANT Work Phone: [facility] 07-21-2022 13:11-0500 Systolic blood pressure 120 mm[Hg] Dwayne Folk COVER OPERATOR.AMBULANCE ATTENDANT Work Phone: [facility] 07-12-2022 11:32-0500 Body weight 134.26 kg Thais Phelps COVER OPERATOR.AMBULANCE ATTENDANT Work Phone: [facility] 07-12-2022 11:32-0500 Diastolic blood pressure 85 mm[Hg] Thais Phelps COVER OPERATOR.AMBULANCE ATTENDANT Work Phone: [facility] 07-12-2022 11:32-0500 Heart rate 79 /min Thais Phelps COVER OPERATOR.AMBULANCE ATTENDANT Work Phone: [facility] 07-12-2022 11:32-0500 Respiratory rate 16 /min Thais Phelps COVER OPERATOR.AMBULANCE ATTENDANT Work Phone: [facility] 07-12-2022 11:32-0500 SaO2% (BldA) [Mass fraction] 99 % Thais Phelps COVER OPERATOR.AMBULANCE ATTENDANT Work Phone: [facility] 07-12-2022 11:32-0500 Systolic blood pressure 127 mm[Hg] Thais Phelps COVER OPERATOR.AMBULANCE ATTENDANT Work Phone: [facility] 02-17-2022 11:51-0400 Body height 193 cm Andegoni Sandalakis COVER OPERATOR.AMBULANCE ATTENDANT Work Phone: [facility] 02-17-2022 11:51-0400 Body temperature 98.1 [degF] Andegoni Sandalakis COVER OPERATOR.AMBULANCE ATTENDANT Work Phone: [facility] 02-17-2022 11:51-0400 Body weight 128.82 kg Andegoni Sandalakis COVER OPERATOR.AMBULANCE ATTENDANT Work Phone: [facility] 02-17-2022 11:51-0400 Diastolic blood pressure 68 mm[Hg] Andegoni Sandalakis COVER OPERATOR.AMBULANCE ATTENDANT Work Phone: [facility] 02-17-2022 11:51-0400 Heart rate 84 /min Andegoni Sandalakis COVER OPERATOR.AMBULANCE ATTENDANT Work Phone: [facility] 02-17-2022 11:51-0400 Respiratory rate 18 /min Andegoni Sandalakis COVER OPERATOR.AMBULANCE ATTENDANT Work Phone: [facility] 02-17-2022 11:51-0400 SaO2% (BldA) [Mass fraction] 98 % Andkrista Gabriel COVER OPERATOR.AMBULANCE ATTENDANT Work Phone: [facility] 02-17-2022 11:51-0400 Systolic blood pressure 113 mm[Hg] Andegoni Ashlyns COVER OPERATOR.AMBULANCE ATTENDANT Work Phone: [facility] 02-09-2022 14:54-0400 Body temperature 98.2 [degF] Renay Funk COVER OPERATOR.AMBULANCE ATTENDANT Work Phone: [facility] 02-09-2022 14:54-0400 Diastolic blood pressure 72 mm[Hg] Renay Funk COVER OPERATOR.AMBULANCE ATTENDANT Work Phone: [facility] 02-09-2022 14:54-0400 Heart rate 89 /min Renay Funk APRN.AMBULANCE ATTENDANT Work Phone: [facility] 02-09-2022 14:54-0400 SaO2% (BldA) [Mass fraction] 97 % Renay Funk COVER OPERATOR.AMBULANCE ATTENDANT Work Phone: [facility] 02-09-2022 14:54-0400 Systolic blood pressure 127 mm[Hg] Renay Funk COVER OPERATOR.AMBULANCE ATTENDANT Work Phone: [facility] 02-03-2022 11:33-0400 Body height 193 cm Renay Funk APRN.AMBULANCE ATTENDANT Work Phone: [facility] 02-03-2022 11:33-0400 Body temperature 97.9 [degF] Renay Funk COVER OPERATOR.AMBULANCE ATTENDANT Work Phone: [facility] 02-03-2022 11:33-0400 Body weight 135.17 kg Renay Funk APRN.AMBULANCE ATTENDANT Work Phone: [facility] 02-03-2022 11:33-0400 Diastolic blood pressure 58 mm[Hg] Renay Funk COVER OPERATOR.AMBULANCE ATTENDANT Work Phone: [facility] 02-03-2022 11:33-0400 Heart rate 95 /min Renay Funk APRN.AMBULANCE ATTENDANT Work Phone: [facility] 02-03-2022 11:33-0400 SaO2% (BldA) [Mass fraction] 97 % Renay Funk APRN.AMBULANCE ATTENDANT Work Phone: [facility] 02-03-2022 11:33-0400 Systolic blood pressure 124 mm[Hg] Renay Funk APRN.AMBULANCE ATTENDANT Work Phone: [facility] 01-22-2022 10:47-0400 Body weight 137.76 kg Leroy Love Work Phone: [facility] 01-22-2022 10:47-0400 Diastolic blood pressure 68 mm[Hg] Leroy Talley MD Work Phone: [facility] 01-22-2022 10:47-0400 Heart rate 72 /min Leroy Love Work Phone: [facility] 01-22-2022 10:47-0400 Systolic blood pressure 118 mm[Hg] Leroy Talley MD Work Phone: [facility] 12-31-2021 08:10-0400 Diastolic blood pressure 74 mm[Hg] Abhinav Garrett MD Work Phone: [facility] 12-31-2021 08:10-0400 Systolic blood pressure 127 mm[Hg] Abhinav Garrett MD Work Phone: [facility] 12-31-2021 08:09-0400 Body height 193 cm Abhinav Garrett MD Work Phone: [facility] 12-31-2021 08:09-0400 Body weight 133.81 kg Abhinav Garrett MD Work Phone: [facility] 12-31-2021 08:09-0400 Heart rate 80 /min Abhinav Garrett MD Work Phone: [facility] 12-31-2021 08:09-0400 SaO2% (BldA) [Mass fraction] 98 % Abhinav Garrett MD Work Phone: [facility] 10-20-2021 14:25-0400 Body temperature 97.39 [degF] Dulce Maria Cooper DO Work Phone: [facility] 10-20-2021 14:25-0400 Diastolic blood pressure 73 mm[Hg] Dulce Maria Cooper DO Work Phone: [facility] 10-20-2021 14:25-0400 Heart rate 63 /min Dulce Maria Cooper DO Work Phone: [facility] 10-20-2021 14:25-0400 Respiratory rate 18 /min Dulce Maria Cooper DO Work Phone: [facility] 10-20-2021 14:25-0400 SaO2% (BldA) [Mass fraction] 99 % Dulce Maria Cooper DO Work Phone: [facility] 10-20-2021 14:25-0400 Systolic blood pressure 129 mm[Hg] Dulce Maria Cooper DO Work Phone: [facility] 07-23-2021 06:44-0500 Diastolic blood pressure 60 mm[Hg] SUMIT JONES [facility] 07-23-2021 06:44-0500 Heart rate 77 /min SUMIT GARZONUNK [facility] 07-23-2021 06:44-0500 Mean blood pressure 79 mm[Hg] SUMIT PLUNK DO [facility] 07-23-2021 06:44-0500 Respiratory rate 18 /min SUMIT GARZONUNK DO [facility] 07-23-2021 06:44-0500 Systolic blood pressure 116 mm[Hg] SUMIT PLUNK DO [facility] 07-23-2021 02:27-0500 Diastolic blood pressure 79 mm[Hg] SUMIT PLUNK DO [facility] 07-23-2021 02:27-0500 Heart rate 89 /min SUMIT GARZONUNK DO [facility] 07-23-2021 02:27-0500 Respiratory rate 20 /min SUMIT PLUNK DO [facility] 07-23-2021 02:27-0500 Systolic blood pressure 125 mm[Hg] SUMIT PLUNK DO [facility] 07-23-2021 00:11-0500 Diastolic blood pressure 62 mm[Hg] SUMIT PLUNK [facility] 07-23-2021 00:11-0500 Heart rate 86 /min SUMIT GARZONUNK [facility] 07-23-2021 00:11-0500 Respiratory rate 18 /min SUMIT JONES Ku[facility] 07-23-2021 00:11-0500 Systolic blood pressure 122 mm[Hg] SUMIT PLUNK Ku[facility]yong [facility] 07-22-2021 22:32-0500 Mean blood pressure 84 mm[Hg] SUMIT PLUNK DO [facility] 07-22-2021 17:47-0500 Mean blood pressure 82 mm[Hg] SUMIT PLUNK Ku[facility]ong [facility] 07-22-2021 17:47-0500 Reason For Taking VItal Signs SUMIT JONES [facility] 07-22-2021 15:49-0500 Body temperature 98.42 [degF] SUMIT JONES Ku[facility]ong [facility] 07-22-2021 15:49-0500 Reason For Taking VItal Signs SUMIT JONES DO [facility] 07-22-2021 13:14-0500 Heart rate 88 /min SUMIT JONES DO [facility] 07-22-2021 07:22-0500 Heart rate 84 /min SUMIT JONES Ku[facility] 07-22-2021 05:32-0500 SaO2% (BldA) [Mass fraction] 98.1 % SUMIT JONES Ku[facility]ong [employer] 07-22-2021 03:20-0500 Heart rate 97 /min SUMIT JONES DO [facility] 07-22-2021 02:15-0500 Body temperature 98.78 [degF] SUMIT JONES DO [facility] 07-21-2021 17:54-0500 Body temperature 98.78 [degF] SUMIT JONES DO [facility] 07-21-2021 17:54-0500 Body weight 114 kg SUMIT JONES [facility] 05-10-2019 14:24-0400 BP Diastolic 81 mm[Hg] [email or web address] [place] 05-10-2019 14:24-0400 BP Systolic 125 mm[Hg] Dixon Wang [employer] [facility] , [place] 05-10-2019 14:24-0400 Pulse (Heart Rate) 85 /min Dixon [facility] [place], [place] 05-10-2019 14:24-0400 Pulse Oximetry 98 % [facility] [place] 05-10-2019 14:24-0400 Respiratory Rate 18 /min Dixon Piña [facility], [place] 05-10-2019 11:17-0400 Body Temperature 98.2 [degF] [facility] [place] 05-10-2019 11:16-0400 BMI (Body Mass Index) 28.61 kg/m2 [facility] [place] 05-10-2019 11:16-0400 Body weight 106.59 kg Dixon [facility] , [place] 05-10-2019 11:16-0400 Height 193 cm Dixon [facility] , [place] 05-08-2019 08:09-0400 BMI (Body Mass Index) 28.61 kg/m2 Cr [facility], [place] 05-08-2019 08:09-0400 Body Temperature 97.2 [degF] [facility], [place] 05-08-2019 08:09-0400 Body weight 106.59 kg [facility] , [place] 05-08-2019 08:09-0400 BP Diastolic 79 mm[Hg] [facility] , [place] 05-08-2019 08:09-0400 BP Systolic 133 mm[Hg] [place], [place] 05-08-2019 08:09-0400 Pulse (Heart Rate) 94 /min [place], [place] 05-08-2019 08:09-0400 Pulse Oximetry 98 % [place], [place] 05-08-2019 08:09-0400 Respiratory Rate 20 /min [place], [place] Encounters Encounter Date Encounter Type Care Provider Facility Start: 04-02-2025 ambulatory JOSE MICLAT Facility:[facility] Start: 03-27-2025 ambulatory Robyn Temsic Facility [facility] Start: 03-27-2025 ambulatory Robyn Temsic Facility :[facility] Start: 03-26-2025 End: 03-26-2025 Telephone encounter Robyn Taylor APRN.AMBULANCE ATTENDANT Work Phone: [facility] Start: 03-26-2025 End: 03-26-2025 Anticoagulant drug monitoring [facility] Work Phone: [facility] [place] Comment on above: Anticoagulation bryce gement encounter (Primary Dx); alf current use of anticoagulant therapy; History of mechanical aortic valve replacement; 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 Refill Request Start: 03-26-2025 End: 03-26-2025 ambulatory ROBYN TAYLOR Facility:[facility] Start: 03-25-2025 End: 03-25-2025 Telemedicine consultation with patient Marysol Cardoza MD Work Phone: Neurology Start: 03-25-2025 End: 03-25-2025 ambulatory Marysol Cardoza MD Work Phone: Neurology Comment on above: Type 1 diabetes jalil itus with diabetic polyneuropathy (HCC) (Primary Dx); Substance abuse (HCC); History of mechanical aortic valve replacement; Hypercholesterolemia; Vitamin D deficiency; 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 Nitin Irby MD [facility] Start: 03-15-2025 End: 03-15-2025 ambulatory ROSCOE UMANZOR Work Phone: [facility] Start: 03-15-2025 End: 03-15-2025 Office outpatient visit 25 minutes Erin Morris MD Work Phone: [employer] Comment on above: H/O mechanical aorti c valve replacement (Primary Dx); S/P aortic valve replacement; History of cocaine use; Mixed hyperlipidemia; Subvalvar aortic stenosis Start: 03-15-2025 End: 03-15-2025 ambulatory ERIN MORRIS [facility] Start: 03-14-2025 End: 03-20-2025 Refill Robyn Vicki Humphreysic COVER OPERATOR.AMBULANCE ATTENDANT Work Phone: [facility] Comment on above: Refill Request Start: 03-08-2025 End: 03-18-2025 Telephone encounter Jaelyn Black [facility] Tele[facility] Comment on above: Anticoagulation Tele phone Fu (INR Result) Start: 03-07-2025 End: 03-14-2025 Telephone encounter Renay Garrett MD Work Phone: [facility] Comment on above: INR; PCP; Coumadin d osing Anticoagulation (INR goal clarification) Start: 03-07-2025 End: 03-07-2025 ambulatory ROBYN K TEMSIC Facility:[id number] Start: 03-07-2025 End: 03-07-2025 Office outpatient visit 25 minutes Robyn K Milagrosic COVER OPERATOR.AMBULANCE ATTENDANT Work Phone: [facility] Comment on above: History of aortic va lve stenosis (Primary Dx); S/P AVR (aortic valve replacement); History of mechanical aortic valve replacement; alf current use of anticoagulant therapy; Exertional dyspnea; Peripheral edema; Iron deficiency anemia secondary to inadequate dietary iron intake; Type 1 diabetes mellitus with diabetic polyneuropathy (HCC) Start: 03-06-2025 End: 03-06-2025 Refill Robyn K Temsic COVER OPERATOR.AMBULANCE ATTENDANT Work Phone: [facility] Comment on above: Refill Request Refill Request; futu re appointments; PCP INR orders; Refill R equest; PCP change Start: 03-04-2025 End: 03-04-2025 Telephone encounter Victorina Juares RN [facility] Comment on above: Refill Request Start: 02-28-2025 End: 02-28-2025 Patient encounter procedure Vamshi Benson MD Work Phone: [facility] Comment on above: Pain in both lower e xtremities; Type 1 diabetes mellitus with diabetic neuropathy (HCC); 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); History of heart surgery Start: 02-28-2025 End: 02-28-2025 ambulatory VAMSHI BENSON Facility:[facility] Start: 02-27-2025 End: 02-27-2025 Telephone encounter Pharmacist [facility] Comment on above: Referral Update Start: 02-27-2025 End: 02-27-2025 Office outpatient new 30 minutes Renay Garrett MD Work Phone: [facility] [place] Comment on above: H/O mechanical aorti c valve replacement (Primary Dx) Start: 02-27-2025 End: 02-27-2025 ambulatory RENAY GARRETT Facility:[facility] Start: 02-24-2025 Visit out of hours Madison Chawla MD Work Phone: [facility] 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 Start: 02-22-2025 End: 02-22-2025 ambulatory ROBYN TAYLOR Facility:[facility] Start: 02-21-2025 In-person encounter Madison gonsales MD Work Phone: [facility] Work Phone: Start: 02-19-2025 End: 02-19-2025 E-mail encounter from caregiver Robyn Taylor APRN.AMBULANCE ATTENDANT Work Phone: [facility] Start: 02-19-2025 End: 02-19-2025 Patient encounter procedure Robyn Taylor APRN.AMBULANCE ATTENDANT Work Phone: [facility] Comment on above: Referral Start: 02-19-2025 End: 02-19-2025 Telephone encounter Robyn Cohen Claudia COVER OPERATOR.AMBULANCE ATTENDANT Work Phone: [facility] Comment on above: Vascular referral fa xed to AG Vascular referral info given via mychart Appointment (appt) Start: 02-18-2025 End: 02-18-2025 Patient encounter procedure [facility] Provider [facility] Department Start: 02-18-2025 End: 02-19-2025 Telephone encounter Robyn Taylor COVER OPERATOR.AMBULANCE ATTENDANT Work Phone: [facility] Comment on above: Referral Information (Neurology) Appointment; Referra l Information Start: 02-13-2025 End: 02-13-2025 ambulatory ROBYN TAYLOR Facility:[id number] Start: 02-12-2025 ambulatory KRISTAL DESAI MD Facility:A Start: 02-06-2025 End: 02-06-2025 [facility] Work Phone: [facility] [place] Comment on above: Anticoagulation bryce gement encounter (Primary Dx); 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; History of mechanical aortic valve replacement; 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 Freddy Mjuica MD -Physical Therapy Work Phone: Start: 02-05-[address] Freddy Childress i, MD -Physical Therapy Work Phone: Start: 01-30-2025 ambulatory UNKNOWN PROVIDER Facili ty:[facility] Start: 01-28-2025 End: 01-29-2025 Telephone encounter Robyn Freemanmendy COVER OPERATOR.AMBULANCE ATTENDANT Work Phone: [facility] Comment on above: Results Start: 01-24-2025 End: 01-24-2025 Office outpatient visit 25 minutes Robyn Vicki Humphreyjustus LARIOS.AMBULANCE ATTENDANT Work Phone: [facility] Comment on above: Nonrheumatic aortic valve stenosis (Primary Dx); S/P AVR (aortic valve replacement); Tachycardia; Pleural effusion on right; Iron deficiency anemia secondary to inadequate dietary iron intake; Acquired hypothyroidism; 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; Type 2 diabetes mellitus without complication, with long-term current use of insulin ([facility]) Start: 01-24-2025 End: 01-24-2025 ambulatory ROBYN FREEMANMendy Facility:[id number] Start: 01-23-2025 End: 01-23-2025 ambulatory ROBYN TAYLOR Facility:[facility] Start: 01-23-2025 End: 01-23-2025 Anticoagulant drug monitoring [facility] Work Phone: [facility] Comment on above: Anticoagulation bryce gement encounter (Primary Dx); 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; History of mechanical aortic valve replacement; 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 Freddy Childress i, MD -Physical Therapy Work Phone: Start: 01-17-2025 End: 01-17-2025 Anticoagulant drug monitoring [facility] Work Phone: [facility] [place] Comment on above: Anticoagulation bryce gement encounter (Primary Dx); 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; History of mechanical aortic valve replacement; alf (current) use of anticoagulants Start: 01-17-2025 End: 01-17-2025 ambulatory ROBYN Cohen [facility] Facility:[facility] Start: 01-16-2025 End: 01-16-2025 ambulatory ROSCOE UMANZOR Work Phone: -[facility] Start: 01-16-2025 End: 01-16-[address] 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 (Primary Dx) Anticoagulation - In itial Consult Adhesive capsulitis of right shoulder (Primary Dx) Start: 01-14-2025 End: 01-14-2025 Orders Only Jt King MD Work Phone: Cardiology Comment on above: Aortic valve disorde r (Primary Dx); S/P AVR (aortic valve replacement) Start: 01-10-2025 End: 01-10-2025 Transitional care manage srvc 14 day discharge [facility] COVER OPERATOR.AMBULANCE ATTENDANT Work Phone: [facility] [place] Comment on above: Nonrheumatic aortic valve stenosis (Primary Dx); S/P AVR (aortic valve replacement); alf current use of anticoagulant therapy; Anticoagulation management [...] 01-10-2025 End: 01-21-2025 Follow-up encounter Robyn Taylor APRN.AMBULANCE ATTENDANT Work Phone: [facility] [place] Start: 01-10-2025 End: 01-14-2025 Patient encounter procedure [facility] Provider Cardiology Comment on above: Coumadin clinic Start: 01-10-2025 End: 01-10-2025 Telephone encounter Jt King MD Work Phone: Cardiology Comment on above: Consult Start: 01-09-2025 ambulatory ROSCOE UMANZOR Facility:[facility] Start: 01-08-2025 End: 01-08-2025 Telephone encounter Sara Pedraza APRN.AMBULANCE ATTENDANT Work Phone: Cardiothoracic Comment on above: Orders Start: 01-07-2025 End: 01-07-2025 Patient encounter procedure Delfina Chaney PA-C Work Phone: Cardiothoracic Comment on above: S/P AVR (Primary Dx) ; H/O heart valve replacement with mechanical valve; Atelectasis; Dyspnea, unspecified type; ABLA (acute blood loss anemia); Thrombocytosis; Pleural effusion; Junctional rhythm; Hyperlipidemia, unspecified hyperlipidemia type Start: 01-07-2025 End: 01-07-2025 ambulatory ROSCOE ARIAS Facility:[facility] Start: 01-07-2025 End: 01-07-2025 Subsequent hospital visit [...] Evaluation and management of inpatient ROBYN TAYLOR Facility:[facility] Start: 12-24-2024 End: 12-24-2024 Patient encounter procedure Jared Alfonso MD Work Phone: Cardiology Start: 12-24-2024 End: 12-24-2024 ambulatory Jared Alfonso MD Work Phone: Cardiology Start: 12-23-2024 End: 12-23-2024 Telephone encounter Jared Alfonso MD Work Phone: Cardiology Comment on above: Education Of Patient /family Start: 12-20-2024 Encounter for other preprocedural examination ROSCOE ARIAS [facility] Start: 12-20-2024 End: 12-20-2024 Patient encounter procedure [facility] Work Phone: Cardiothoracic Comment on above: Pre-op testing (Prim kathryn Dx) Start: 12-20-2024 End: 12-20-2024 Patient encounter status [facility] Work Phone: [facility] Start: 12-20-2024 End: 12-20-2024 Patient encounter procedure Anesthesia Clearance Work Phone: Cardiothoracic Comment on above: Encounter for preope rative anesthesiology assessment for cardiac surgery (Primary Dx) Start: 12-20-2024 End: 12-20-2024 Admission to same day surgery center Anesthesia Clearance Work Phone: [facility] Work Phone: Start: 12-20-2024 End: 12-20-2024 Patient [...] encounter status Jt King MD Work Phone: [facility] Start: 12-20-2024 End: 12-20-2024 ambulatory Alyx Rogers Research Coordinator Research Comment on above: Patient Education Start: 12-19-2024 Encounter for preprocedural cardiovascular examination ANAEKATERINA JUANA [facility] Start: 12-19-2024 End: 12-19-2024 Subsequent hospital visit by physician Xr Chest Main J1 Work Phone: Radiology Comment on above: Type 1 diabetes jalil itus without complication (HCC) [E10.9] Start: 12-19-2024 End: 12-19-2024 ambulatory ANAEKATERINA INGE YOUNGKEY Facility:[facility] Start: 12-19-2024 End: 12-19-2024 Patient encounter [...] Patient encounter status Pulm A110 Work Phone: [facility] Start: 12-12-2024 End: 12-12-2024 ambulatory ROSCOE UMANZOR Work Phone: [facility] Work Phone: Start: 12-12-2024 End: 12-12-[address] Freddy Mujica MD -Radiology [facility] Work Phone: Start: 12-12-2024 End: 12-12-2024 [facility] Start: 12-07-2024 End: 12-07-2024 Telephone encounter Rehana Aviles DMD Work Phone: Dentistry Start: 12-04-2024 End: 12-04-2024 Telephone encounter Bernabe Meeks DMD Work Phone: Dentistry Start: 11-30-2024 End: 11-30-2024 Patient encounter procedure Rehana Aviles DMD Work Phone: Dentistry Comment on above: Retained tooth root (Primary Dx); Type 1 diabetes mellitus without complication (HCC); Acquired hypothyroidism; Pre-operative cardiovascular examination; Aortic valve disorder; Dental caries Start: 11-30-2024 End: 11-30-2024 Patient encounter status Rehana Aviles DMD Work Phone: [facility] Start: 11-30-2024 End: 11-30-2024 ambulatory REHANA AVILES Facility:[facility] Start: 11-22-2024 End: 11-22-2024 Telephone encounter Roscoe Arias MD Work Phone: Cardiothoracic Comment on above: Insurance Authorizat ion Start: 11-20-2024 End: 11-20-2024 ambulatory [facility] Facility:[facility] Start: 11-20-2024 End: 11-20-2024 Patient encounter procedure Transesophageal Echo Card [facility] Comment on above: S/P transesophageal echocardiogram ([place]) (Primary Dx) Aortic valve disorde r Start: 11-20-2024 End: 11-20-2024 ambulatory [facility] Facility:[facility] Start: 11-20-2024 End: 11-20-2024 ambulatory ROSCOE ARIAS Facility:[facility] Start: 11-20-2024 End: 11-20-2024 Subsequent hospital visit [...] 25 minutes Erin Morris MD Work Phone: [facility] Cardiology [facility] Comment on above: S/P AVR (aortic valv [...] Documentation procedure Erin Morris MD Work Phone: [facility] Start: 07-31-2024 End: 07-31-2024 ambulatory KRISTAL DESAI MD Facility:A Start: 07-25-2024 End: 07-25-2024 ambulatory ROSCOE UMANZOR MD Facility:[facility] Start: 07-25-2024 End: 07-25-[address] LUZ MARIA PEREZ MD [facility] Start: 07-17-2024 End: 07-17-2024 ambulatory ROSCOE UMANZOR Facility:A Start: 07-15-2024 ambulatory ROSCOE UMANZOR Facility: A Start: 05-16-2024 End: 05-16-2024 Patient encounter procedure Ccf Provider [facility] Department Start: 05-14-2024 End: 05-14-2024 ambulatory LUZ MARIA PEREZ [facility] Start: 05-14-2024 End: 05-14-2024 Office outpatient visit 25 minutes Luz Maria Perez MD Work Phone: [facility] Cardiology - [place] Comment on above: Subvalvar aortic shayan nosis (Primary Dx); Congenital subaortic stenosis; Subaortic membrane; S/P AVR (aortic valve replacement); History of cocaine use Start: 04-30-2024 End: 04-30-2024 Telephone encounter Dwayne Araujo APRN.AMBULANCE ATTENDANT Work Phone: [facility] Comment on above: Appointment Start: 04-18-2024 End: 04-18-2024 Between Visits ROSCOE UMANZOR MD [facility] Start: 04-16-2024 End: 04-20-2024 ambulatory ROSCOE UMANZOR Facility:[facility] Internal Medicine Start: 04-16-2024 End: 01-29-2025 Chart abstracting Robyn Taylor APRN.AMBULANCE ATTENDANT Work Phone: [facility] [place] Comment on above: Results ([facility]) Start: 04-11-2024 End: 04-11-2024 Emergency department patient visit AMANDA RUELAS DO [facility] Start: 04-06-2024 End: 04-06-2024 Emergency department patient visit ROMAN FERNÁNDEZ MD [employer] [facility] Start: 03-29-2024 End: 03-29-2024 [facility] Start: 03-28-2024 End: 03-29-2024 Refill Sruthi Ambrosio APRN.AMBULANCE ATTENDANT Work Phone: [facility] [place] Comment on above: Refill Request Start: 03-26-2024 End: 03-26-2024 ambulatory Sruthi Ambrosio APRN.AMBULANCE ATTENDANT Work Phone: [facility] Start: 03-26-2024 End: 03-26-2024 Patient encounter procedure Sruthi Ambrosio COVER OPERATOR.AMBULANCE ATTENDANT Work Phone: [facility] Comment on above: Test strips Start: 03-18-2024 End: 03-19-2024 Refill Sruthi Ambrosio APRN.AMBULANCE ATTENDANT Work Phone: [facility] Comment on above: Refill Request Start: 03-05-2024 End: 03-05-2024 Telephone encounter Sruthi Ambrosio APRN.AMBULANCE ATTENDANT Work Phone: [facility] Start: 02-06-2024 End: 02-10-2024 Evaluation and management of inpatient NIMESH FONSECA Facility:[id number] Start: 02-03-2024 End: 02-03-2024 Patient encounter procedure Bonilla Pollock MD Work Phone: [facility] [place] Comment on above: Medication refill (P rimary Dx); Type 1 diabetes mellitus with diabetic polyneuropathy (HCC); Acquired hypothyroidism Start: 02-01-2024 End: 02-01-2024 Emergency department patient visit MIQUEL BURNETT MD [facility] Start: 01-26-2024 Refill Sruthi dove APRN.AMBULANCE ATTENDANT Work Phone: [facility] Comment on above: Insulin Requested by Patient (False/Inaccurate Medical Information Given By Patient ) Start: 01-23-2024 Refill Sruthi dove APRN.AMBULANCE ATTENDANT Work Phone: [facility] Comment on above: Refill Request Start: 01-05-2024 End: 01-05-2024 Emergency department patient visit SEAN LIND MD [facility] Start: 01-04-2024 Refill Sruthi dove APRN.AMBULANCE ATTENDANT Work Phone: [facility] Comment on above: Refill Request Start: 01-03-2024 Telephone encounter Sruthi Cason APRN.AMBULANCE ATTENDANT Work Phone: [facility] Start: 01-02-2024 ambulatory Sruthi dove APRN.AMBULANCE ATTENDANT Work Phone: [facility] Start: 01-02-2024 Patient encounter procedure Sruthi Ambrosio APRN.AMBULANCE ATTENDANT Work Phone: [facility] Comment on above: Dexcom Start: 01-02-2024 End: 01-02-2024 Telemedicine consultation with patient Mercedes Spear RIC.AMBULANCE ATTENDANT Work Phone: Telemedicine Comment on above: APPOINTMENT CANCELLE D (Primary Dx) Refill Request Start: 12-09-2023 Telephone encounter Sruthi Cason APRN.AMBULANCE ATTENDANT Work Phone: [facility] Comment on above: Results Start: 11-24-2023 End: 11-24-2023 Office outpatient visit 25 minutes Sruthi Ambrosio APRN.AMBULANCE ATTENDANT Work Phone: [facility] Comment on above: Type 1 diabetes jalil itus with diabetic polyneuropathy (HCC) (Primary Dx); Acquired hypothyroidism; Simple chronic bronchitis (HCC); Mixed anxiety and depressive disorder; Vitamin D deficiency; Screening for prostate cancer Start: 11-18-2023 Refill Sruthi dove APRN.AMBULANCE ATTENDANT Work Phone: [facility] Comment on above: Refill Request Start: 09-29-2023 Telephone encounter Robyn Freemanmendy COVER OPERATOR.AMBULANCE ATTENDANT Work Phone: [facility] Comment on above: Appointment Start: 09-19-2023 End: 09-19-2023 Emergency department patient visit NONE PHYSICIAN Facility:A Start: 08-15-2023 Refill Sruthi Gold i COVER OPERATOR.AMBULANCE ATTENDANT Work Phone: [facility] Comment on above: Refill Request Start: 05-26-2023 Telephone encounter Sruthi noel COVER OPERATOR.AMBULANCE ATTENDANT Work Phone: [facility] Comment on above: Refill Request Start: 05-25-2023 Telephone encounter Dwayne carlos COVER OPERATOR.AMBULANCE ATTENDANT Work Phone: [facility] Comment on above: Appointment; No Show (# 1) Start: 05-25-2023 End: 05-25-2023 Patient encounter procedure Dwayne Araujo COVER OPERATOR.AMBULANCE ATTENDANT Work Phone: [facility] Comment on above: NO SHOW (Primary Dx) Start: 05-19-2023 Telephone encounter Dwaynealona carlos COVER OPERATOR.AMBULANCE ATTENDANT Work Phone: [facility] Comment on above: Forms (David BALLESTEROS ) Start: 05-06-2023 Telephone encounter Aniya Oviedo COVER OPERATOR - [facility] Work Phone: [facility] Comment on above: Forms/questionnaires Start: 05-06-2023 End: 05-06-2023 Office outpatient visit 25 minutes Luz Maria Perez MD Work Phone: [facility] Cardiology Comment on above: FALGUNI (obstructive sle ep apnea) (Primary Dx); Dyspnea on exertion; Subaortic membrane; S/P AVR (aortic valve replacement); Substance abuse (CMS/HCC) (HCC); Mixed hyperlipidemia Start: 04-25-2023 End: 04-25-2023 ambulatory [facility] Work Phone: Start: 04-25-2023 End: 04-25-2023 Patient encounter procedure [facility] Work Phone: Start: 03-20-2023 End: 03-20-2023 Emergency department patient visit [facility] Work Phone: Start: 03-04-2023 ambulatory Sruthi Vidaymamitak i COVER OPERATOR.AMBULANCE ATTENDANT Work Phone: [facility] Comment on above: Test strips Start: 03-03-2023 End: 03-03-2023 ambulatory Dwayne Folk COVER OPERATOR.AMBULANCE ATTENDANT Work Phone: [facility] Comment on above: Type 1 diabetes jalil itus with hyperglycemia (HCC) (Primary Dx); High risk medication use; Illicit drug use; Insulin pump status Start: 03-03-2023 End: 03-03-2023 Telemedicine consultation with patient Dwayne Evank COVER OPERATOR.AMBULANCE ATTENDANT Work Phone: [facility] [facility] Start: 02-28-2023 Refill Sruthitania Francesk i COVER OPERATOR.AMBULANCE ATTENDANT Work Phone: [facility] Comment on above: Refill Request Start: 02-25-2023 Telephone encounter Dwaynealona carlos COVER OPERATOR.AMBULANCE ATTENDANT Work Phone: [facility] Comment on above: Patient Update Start: 02-21-2023 Refill Sruthi Vidaymamitak i COVER OPERATOR.AMBULANCE ATTENDANT Work Phone: [facility] [place] Comment on above: Refill Request Test Strips Start: 02-17-2023 End: 02-17-2023 Patient encounter procedure Dwayne Evank COVER OPERATOR.AMBULANCE ATTENDANT Work Phone: [facility] Comment on above: Type 1 diabetes jalil itus with hyperglycemia (HCC) (Primary Dx); High risk medication use; Illicit drug use Start: 02-16-2023 End: 02-16-2023 Emergency department patient visit SUMIT BLOOM MD [facility] Start: 02-14-2023 Orders Only Sruthi Gold i, APRN.CNP Work Phone: [facility] Comment on above: Type 1 diabetes jalil itus with diabetic polyneuropathy (HCC) (Primary Dx) Insurance Authorizat ion (Insulin Degludec --- PENDING ) Medication Problem Start: 02-10-2023 Telephone encounter Dwayne Estrella carlos APRN.QAMAR Work Phone: [facility] Comment on above: Letter Start: 02-07-2023 Refill Sruthi Gold i, APRN.CNP Work Phone: [facility] Comment on above: Refill Request Patient Question Refill Request (Omni pod 5 G6 pods, Gen 5, and Intro Kit ); Refill Request Start: 02-04-2023 ambulatory [facility] UN[facility] Start: 01-24-2023 Telephone encounter Dwayne Estrella carlos APRN.AMBULANCE ATTENDANT Work Phone: [facility] Comment on above: Patient Question (Om nipod, Dexcom); Insurance Authorization (Omnipod 5 G6 Intro (Gen 5) kit and Pods --- PENDING ) Start: 01-07-2023 End: 01-07-2023 Office outpatient visit 25 minutes Sruthi Ambrosio APRN.CNP Work Phone: [facility] Comment on above: Simple chronic bronc hitis (HCC); Type 1 diabetes mellitus with hyperglycemia (HCC) Start: 12-28-2022 End: 12-28-2022 Patient encounter procedure Sruthi Amrbosio APRN.CNP Work Phone: [facility] Comment on above: No-show for appointm ent (Primary Dx) Start: 12-28-2022 End: 12-28-2022 Telemedicine consultation with patient Sruthi Ambrosio APRN.CNP Work Phone: [facility] Start: 12-24-2022 Refill Dwayne Van ELIAS.QAMAR Work Phone: [facility] Comment on above: Refill Request (Mila log ) Start: 12-10-2022 End: 12-10-2022 Office outpatient visit 15 minutes Brit Banuelos MD Work Phone: [facility] Comment on above: Simple chronic bronc hitis (HCC) (Primary Dx); Type 1 diabetes mellitus with hyperglycemia (HCC) Start: 12-10-2022 Refill Sruthi Gold i COVER OPERATOR.AMBULANCE ATTENDANT Work Phone: [facility] Comment on above: Med Change Request Start: 12-09-2022 Telephone encounter Sruthi noel COVER OPERATOR.AMBULANCE ATTENDANT Work Phone: [facility] Comment on above: Medication Problem Start: 11-22-2022 End: 11-22-2022 Office outpatient visit 15 minutes Brit Banuelos MD Work Phone: [facility] Comment on above: Medication refill (P rimary Dx) Start: 11-01-2022 End: 11-01-2022 Office outpatient visit 25 minutes Luz Maria Perez MD Work Phone: [facility] Comment on above: Dyspnea on exertion (Primary Dx); Subvalvar aortic stenosis; S/P AVR (aortic valve replacement); Subvalvular aortic stenosis; Substance abuse (CMS/HCC) (HCC); History of drug abuse (CMS/HCC) (HCC) Start: 09-30-2022 Refill Leroy Solis MD Work Phone: Endocrinology Comment on above: Refill Request Start: 09-21-2022 Refill Leroy Solis MD Work Phone: Endocrinology Comment on above: Refill Request Start: 09-21-2022 Refill Aniya bhagat COVER OPERATOR - AMBULANCE ATTENDANT Work Phone: [facility] Start: 09-13-2022 Telephone encounter Leroy Haywood MD Work Phone: Endocrinology Comment on above: Medication Question Start: 09-03-2022 Telephone encounter Dwaynealona carlos COVER OPERATOR.AMBULANCE ATTENDANT Work Phone: [facility] Comment on above: No Show (# 2) Start: 08-30-2022 Telephone encounter Eliza Adams brockjunie Mina DO Work Phone: [facility] Comment on above: Patient Update Start: 08-25-2022 End: 08-25-2022 Emergency department patient visit Dulce Maria Barba MD Work Phone: [facility] Comment on above: DKA, type 1, not at goal (CMS/HCC) (HCC) (Primary Dx); Acute kidney injury (CMS/HCC) (HCC); Diabetic ketoacidosis without coma associated with type 1 diabetes mellitus (CMS/HCC) (HCC); Lactic acidosis Start: 08-25-2022 Telephone encounter Dwaynealona carlos COVER OPERATOR.AMBULANCE ATTENDANT Work Phone: [facility] Comment on above: Medication Request Start: 08-02-2022 ambulatory Junior Adhikari RN [facility] Start: 07-23-2022 Telephone encounter Dwaynealona carlos COVER OPERATOR.AMBULANCE ATTENDANT Work Phone: [facility] Comment on above: Medication Problem ( Needs dexcom G6 sensors) Start: 07-21-2022 End: 07-21-2022 Patient encounter procedure Dwayne Araujo COVER OPERATOR.AMBULANCE ATTENDANT Work Phone: [facility] Comment on above: Type 1 diabetes jalil itus with hyperglycemia (HCC) (Primary Dx); Insulin pump status; High risk medication use Start: 07-15-2022 ambulatory Akiko Richard RN [facility] Start: 07-15-2022 Patient encounter procedure Akiko Richard RN [facility] Start: 07-15-2022 Telephone encounter Leroy Haywood MD Work Phone: Endocrinology Comment on above: Medication Problem ( Freestyle [place] 2 Sensors) Wants to discuss tod ay's discussion Start: 07-12-2022 Telephone encounter Thais ELIAS.AMBULANCE ATTENDANT Work Phone: [facility] Comment on above: Medication Problem; Orders Start: 07-12-2022 End: 07-12-2022 Patient encounter procedure Thais Phelps COVER OPERATOR.AMBULANCE ATTENDANT Work Phone: [facility] Comment on above: Dental infection (Pr imary Dx); Medication refill; SOB (shortness of breath) Start: 07-07-2022 Refill Casey amador MD Work Phone: Endocrinology Comment on above: Refill Request Start: 07-01-2022 Telephone encounter Dwayne carlos COVER OPERATOR.AMBULANCE ATTENDANT Work Phone: [facility] Comment on above: No Show (# 1) Start: 07-01-2022 End: 07-01-2022 Patient encounter procedure Dwayne Araujo COVER OPERATOR.AMBULANCE ATTENDANT Work Phone: [facility] Comment on above: NO SHOW [...] Telephone encounter Kylee cardenas MD Work Phone: [facility] General Endocrinology Comment on above: Patient Question (De xcom sample) Start: 05-05-2022 ambulatory Gely Garg esearch Coordinator [facility] Start: 2022 ambulatory UNKNOWN PROVIDER [facility] Start: 02-23-2022 Telephone encounter Roscoe lira MD Work Phone: Cardiology Comment on above: Post Dc Program Call - Fyi; Post Dc Program Call - Needs Attn Start: 02-17-2022 End: 02-17-2022 Patient encounter procedure Courtney Gabriel COVER OPERATOR.AMBULANCE ATTENDANT Work Phone: Cardiothoracic Comment on above: Visit for wound chec k (Primary Dx); Wound disruption, post-op, skin, initial encounter; Post-op pain Start: 02-15-2022 Telephone encounter Roscoe lira MD Work Phone: Cardiology Comment on above: Post Dc Program Call - Needs Attn Start: 02-09-2022 End: 02-09-2022 Patient encounter procedure Renay Funk COVER OPERATOR.AMBULANCE ATTENDANT Work Phone: Cardiothoracic Comment on above: Wound drainage (Prim kathryn Dx) Start: 02-09-2022 Telephone encounter Roscoe lira MD Work Phone: Cardiology Comment on above: Post Dc Program Call - Needs Attn Start: 02-08-2022 ambulatory Renay Funk APR N.AMBULANCE ATTENDANT Work Phone: Cardiothoracic Comment on above: Pain Management Start: 02-04-2022 Telephone encounter Roscoe lira MD Work Phone: Cardiology Comment on above: Patient Question; Me dication Problem Start: 02-03-2022 End: 02-03-2022 Patient encounter procedure Renay Funk COVER OPERATOR.AMBULANCE ATTENDANT Work Phone: Cardiothoracic Comment on above: Atelectasis [...] testing (Prim kathryn Dx) Start: 01-25-2022 ambulatory Roscoe stover MD Work Phone: Cardiothoracic Comment on above: Patient Education Start: 01-25-2022 End: 01-25-2022 Patient encounter procedure Roscoe Arias MD Work Phone: Cardiothoracic Comment on above: Pre-operative cardio vascular examination (Primary Dx) Start: 01-25-2022 End: 01-25-2022 Patient encounter status Roscoe Arias MD Work Phone: [facility] Start: 01-22-2022 End: 12-19-2024 Patient encounter status Pulm 10 Other Phone: [facility] Start: 01-22-2022 End: 01-22-2022 ambulatory Pulm Fct Lab Main 10 Other Phone: Pulmonary Medicine Comment on above: Spirometry Start: 01-22-2022 End: 01-22-2022 Preprocedural examination done Pulm Fct Lab Main 10 Other Phone: Pulmonary Medicine Start: 01-22-2022 End: 01-22-2022 Patient encounter procedure Pulm Fct Lab Main 10 Other Phone: [facility] Comment on above: Type 1 diabetes jalil itus without complication (HCC) (Primary Dx); Type 1 diabetes mellitus with hyperglycemia (HCC); Insulin pump status Start: 01-19-2022 ambulatory UNKNOWN PROVIDER [facility] Start: 01-01-2022 Patient encounter status Antione Arias MD Work Phone: Cardiothoracic Start: 01-01-2022 Telephone encounter Roscoe lira MD Work Phone: Cardiothoracic Comment on above: Cardiac Preop Checkl ist Start: 12-31-2021 End: 12-31-2021 Patient encounter procedure Roscoe Arias MD Work Phone: Cardiothoracic Comment on above: Subaortic membrane ( Primary Dx) Start: 12-31-2021 End: 12-31-2021 Subsequent hospital visit by physician Ellie Chest Main J1 Work Phone: Radiology Comment on above: Subaortic membrane [ Q24.4] Start: 12-31-2021 End: 12-31-2021 Patient encounter procedure Abhinav Garrett MD Work Phone: Cardiology Comment on above: Subaortic membrane ( Primary Dx); Type 1 diabetes mellitus with diabetic polyneuropathy (HCC); Dyslipidemia; Obesity (BMI 30-39.9); Dyspnea, unspecified type; Ex-smoker Start: 11-12-2021 End: 11-12-2021 ambulatory UNKNOWN PROVIDER [facility] Start: 10-30-2021 Telephone encounter Roscoe lira MD Work Phone: Cardiothoracic Comment on above: Case Review Start: 10-27-2021 Telephone encounter No One Pcp (Raven mckeon) Referring Physician Comment on above: External Referrals/r esources Insurance Authorizat ion Start: 10-20-2021 End: 10-20-2021 Emergency department patient visit Dulce Maria Cooper DO Work Phone: [facility] Comment on above: Chest pain, unspecif ied type (Primary Dx) Start: 10-07-2021 End: 10-07-2021 ambulatory Beto Linares [facility] Start: 09-23-2021 ambulatory Janusz Taveras [facility] Start: 09-23-2021 End: 09-23-2021 Subsequent hospital visit by physician Janusz Taveras COVER OPERATOR - AMBULANCE ATTENDANT Work Phone: [facility] [address] Comment on above: Subvalvar aortic shayan nosis; LVH (left ventricular hypertrophy) Start: 07-21-2021 End: 07-23-2021 Emergency department patient visit SUMIT JONES DO [facility] Start: 04-30-2021 End: 04-30-2021 Subsequent hospital visit by physician Giovanni Ellis AMBULANCE ATTENDANT Work Phone: [facility] Comment on above: Acquired hypothyroid ism Start: 01-20-2021 End: 01-20-2021 Subsequent hospital visit by physician Jessee Carrasco MD Work Phone: [facility] Comment on above: Type 1 diabetes jalil itus without complication (HCC); Acquired hypothyroidism; Chronic fatigue Start: 01-15-2021 End: 01-15-2021 Subsequent hospital visit by physician Kaela Fatima PA-C Work Phone: [facility] Comment on above: Chronic right hip pa in Start: 12-18-2020 End: 12-18-2020 Subsequent hospital visit by physician Giovanni Ellis CNP Work Phone: [facility] Comment on above: Type 1 diabetes jalil itus with hyperglycemia (HCC); Elevated liver enzymes; Screening for HIV (human immunodeficiency virus); Acquired hypothyroidism Start: 12-18-2020 End: 12-18-2020 Subsequent hospital visit by physician Giovanni Ellis CNP Work Phone: [facility] Comment on above: Dysuria Start: 12-01-2020 End: 12-01-2020 Subsequent hospital visit by physician Areli Rajput APRN, NP Work Phone: [facility] Comment on above: Acute cystitis with hematuria Start: 11-27-2020 End: 11-27-2020 Subsequent hospital visit by physician Areli Rajput APRN MANAGER LOCAL Work Phone: [facility] Comment on above: Acute cystitis with hematuria Start: 11-06-2020 End: 11-06-2020 Subsequent hospital visit by physician Giovanni Ellis CNP Work Phone: [facility] [place] Comment on above: Right hip pain Start: 10-24-2020 End: 10-24-2020 Subsequent hospital visit by physician Areli Rajptu APRN MANAGER LOCAL Work Phone: [facility] [place] Comment on above: Shortness of breath; Cough Start: 12-06-2019 End: 12-07-2019 Patient encounter procedure LUZ MARIA PEREZ Facility:[facility] Start: 08-31-2019 End: 09-01-2019 Patient encounter procedure HANS [facility] Start: 08-31-2019 End: 08-31-2019 Subsequent hospital visit by physician Daria SIMMONS EKG Start: 05-10-2019 End: 05-10-2019 Emergency department patient visit Dixon Piña Work Phone: [facility] Comment on above: Cellulitis and absce ss of trunk (Primary Dx) Start: 05-08-2019 End: 05-08-2019 Emergency department patient visit Cr Espinoza Leta Work Phone: [facility] ED Comment on above: Acute bacterial conj unctivitis of both eyes (Primary Dx) Start: 10-23-2018 Patient encounter procedure YADI THOMPSON Facility:[id number] Start: 06-08-2018 End: 06-08-2018 [facility] Start: 03-31-2018 End: 03-31-2018 Emergency department patient visit DIAZ Olsen [facility] Procedures Date Procedure Procedure Detail Performing Clinician Start: 03-15-2025 X-ray of cervical spine ROSCOE UMANZOR Work Phone: Start: 03-07-2025 Prothrombin time [facility] [...] exam ches t 2 views Robyn Taylor COVER OPERATOR.AMBULANCE ATTENDANT Work Phone: Start: 02-06-2025 Prothrombin time [facility] Pr ovider Start: 01-23-2025 Prothrombin time [facility] Pr ovider Start: 01-16-2025 MRI of cervical spine Junie UMANZOR Work Phone: Start: 01-16-2025 Thyrotropin [Units/v olume] in Serum or Plasma Erin Morris MD Work Phone: Start: 01-10-2025 Prothrombin time Patricia n K Temsic COVER OPERATOR.AMBULANCE ATTENDANT Work Phone: Start: 01-07-2025 Radiologic exam ches t 2 views Roscoe Arias MD Work Phone: Start: 12-19-2024 Antibody screen ROSCOE ARIAS Comment on above: Order Comment: Speci men Type: BLOOD SPECIMENOrdering Facility: [facility] Address: [address] [place] [address] Performed By: #### T [id number] ####CC MAIN BLOOD BANKCLIA [id number] [facility] [id number] [place] [address] Start: 12-19-2024 Radiologic exam ches t 2 views Roscoe Arias MD Work Phone: Start: 12-19-2024 Spmtry w/vc expirato ry dirk w/wo mxml vol vntj Roscoe Arias MD Work Phone: Start: 12-12-2024 X-ray of cervical spine ROSCOE ERNA Work Phone: Start: 11-20-2024 Echo transthorc r-t 2d w/wo m-mode rec f-up/lmtd Roscoe Arias MD Work Phone: Start: 11-20-2024 Echocardiography ROSCOE ARIAS Start: 11-20-2024 Creatinine [Mass/vol ume] in Serum [...] 12 lds trcg only w/o i&r Casey Gresham COVER OPERATOR - [facility] Work Phone: Start: 08-25-2022 Comprehensive metabo lic panel Casey Gresham COVER OPERATOR [facility] Work Phone: Start: 08-25-2022 POCT GLUCOSE METER UNSOLICITED RESULTS Dulce Maria Barba MD Work Phone: Start: 07-21-2022 Hemoglobin A1c/Hemoglobin.total in Blood Dwayne Folk COVER OPERATOR.AMBULANCE ATTENDANT Work Phone: Start: 02-17-2022 Cul bact xcpt urine blood/stool aerobic isol Andkrista Gabriel COVER OPERATOR.AMBULANCE ATTENDANT Work Phone: Start: 02-16-2022 Thyrotropin [Units/v olume] in Serum or Plasma Aniya Oviedo COVER OPERATOR - AMBULANCE ATTENDANT Work Phone: Start: 01-22-2022 Spmtry w/vc expirato [...] exam ches t single view Casey Gresham [facility] Work Phone: Start: 10-20-2021 End: 10-20-2021 Comprehensive metabolic panel Casey Gresham [facility] Work Phone: Start: 10-20-2021 Ecg routine ecg w/le ast 12 lds w/i&r Casey Gresham [facility] Work Phone: Start: 09-23-2021 Echo tthrc r-t 2d w/ wom-mode compl spec&colr d Janusz S Radha [facility] Work Phone: Start: 04-30-2021 Comprehensive metabo lic panel Giovanni Ellis [facility] Work Phone: Start: 04-30-2021 GLOMERULAR FILTRATION RATE Giovanni Ellis [facility] Work Phone: Start: 04-30-2021 Adult depression scr eening assessment Giovanni Ellis [facility] Work Phone: Start: 01-20-2021 MICROALBUMIN URINE R ANDOM W/CREATININE RATIO Jessee Carrasco MD Work Phone: Start: 01-15-2021 Injection hip arthro graphy w/o anesthesia Kaela Fatima PA-C Work Phone: Start: 01-06-2021 Adult depression scr eening assessment Kaela Fatima PA-C Work Phone: Start: 12-18-2020 CBC W Auto Different ial panel - Blood Giovanni Ellis CNP Work Phone: Start: 12-18-2020 Comprehensive metabo lic panel Giovanni Ellis CNP Work Phone: Start: 12-18-2020 GLOMERULAR FILTRATION RATE Giovanni Ellis CNP Work Phone: Start: 12-18-2020 Iaad ia hiv-1 ag w/h iv-1 & hiv-2 antbdy single Giovanni Ellis AMBULANCE ATTENDANT Work Phone: Start: 12-18-2020 Lipid panel Giovanni brown AMBULANCE ATTENDANT Work Phone: Start: 12-18-2020 Lipid 1996 panel - S jared or Plasma Giovanni Ellis AMBULANCE ATTENDANT Work Phone: Start: 11-27-2020 Adult depression scr eening assessment Areli Rajput RIC MANAGER LOCAL Work Phone: Start: 11-06-2020 Adult depression scr eening assessment Giovanni Ellis AMBULANCE ATTENDANT Work Phone: Start: 10-24-2020 Radiologic exam ches t 2 views Areli Rajput APRN MANAGER LOCAL Work Phone: Start: 10-24-2020 Adult depression scr eening assessment Areli Rajput RIC MANAGER LOCAL Work Phone: Start: 10-06-2020 3 comp foot exam completed Areli Rajput RIC MANAGER LOCAL Work Phone: Start: 08-31-2019 Ecg routine ecg w/le ast 12 lds w/i&r HANS GRACIA Start: 05-10-2019 Blood count complete auto&auto difrntl wbc Casey Jase Work Phone: Start: 05-10-2019 C-reactive protein Jerrell Gresham Work Phone: Start: 05-10-2019 Comprehensive metabo lic panel Casey Jase Work Phone: Start: 05-10-2019 Sedimentation rate r [...] PLASMA JOSE MARIN Start: 06-08-2018 TROPONIN DIAZ GROSMSAN Start: 06-08-2018 BLOOD GAS, VENOUS RAYMO CLAY MARIN Start: 06-08-2018 EKG 12-LEAD DIAZ GROSSMAN Start: 06-08-2018 POCT GLUCOSE DIAZ GROSSMAN Start: 03-31-2018 NURSING COMMUNICATION R RISSA MARIN Start: 03-31-2018 INSERT PERIPHERAL IV RA [...] for Adults (1 - 1-dose 75+ series) [facility] Start: 2044 PNEUMOCOCCAL (3 - PPSV23 if available, else PCV20) PNEUMOCOCCAL (3 - PPSV23 if available, else PCV20) [facility] Start: 2044 PNEUMOCOCCAL (3 - PPSV23 or PCV20) PNEUMOCOCCAL (3 - PPSV23 or PCV20) [facility] Start: 2044 Pneumococcal 0-64 years Vaccine (2 of 2 - PPSV23) Pneumococcal 0-64 years Vaccine (2 of 2 - PPSV23) [facility] Start: 2044 Pneumococcal 0-64 years Vaccine (3 - PPSV23 or PCV20) Pneumococcal 0-64 years Vaccine (3 - PPSV23 or PCV20) [facility] Start: 2044 Pneumococcal vaccination [facility] Start: 2044 Pneumococcal Vaccine: Pediatrics (0 to 5 Years) and At-Risk Patients (6 to 64 Years) (3 - PPSV23 if available, else PCV20) Pneumococcal Vaccine: Pediatrics (0 to 5 Years) and At-Risk Patients (6 to 64 Years) (3 - PPSV23 if available, else PCV20) [facility] Start: 2044 Pneumococcal Vaccine: Pediatrics (0 to 5 Years) and At-Risk Patients (6 to 64 Years) (3 - PPSV23 or PCV20) Pneumococcal Vaccine: Pediatrics (0 to 5 Years) and At-Risk Patients (6 to 64 Years) (3 - PPSV23 or PCV20) [facility] Start: 2044 Pneumococcal Vaccine: Pediatrics (0 to 5 Years) and At-Risk Patients (6 to 64 Years) (3 of 3 - PPSV23 or PCV20) Pneumococcal Vaccine: Pediatrics (0 to 5 Years) and At-Risk Patients (6 to 64 Years) (3 of 3 - PPSV23 or PCV20) [facility] Start: 2029 Pneumococcal vaccination Pneumococcal Vaccine (3 of 3 - PCV20 or PCV21) [facility] Start: 2029 Pneumococcal Vaccine: Pediatrics (0 to 5 Years) and At-Risk Patients (6 to 49 Years) (3 of 3 - PCV20 or PCV21) Pneumococcal Vaccine: Pediatrics (0 to 5 Years) and At-Risk Patients (6 to 49 Years) (3 of 3 - PCV20 or PCV21) [facility] Start: 2029 Shingles Vaccine (1 of 2) Shingles Vaccine (1 of 2) [facility] [place] Start: 2029 Zoster Vaccines (1 of 2) Zoster Vaccines (1 of 2) [facility] Start: 04-04-2029 Diphtheria + pertussis + tetanus vaccine (product) [facility] Start: 04-04-2029 DTaP/Tdap/Td vaccine (3 - Td or Tdap) DTaP/Tdap/Td vaccine (3 - Td or Tdap) [facility] Start: 04-04-2029 DTaP/Tdap/Td vaccine (3 - Td) DTaP/Tdap/Td vaccine (3 - Td) [facility] [place] Start: 04-04-2029 DTaP/Tdap/Td Vaccines (3 - Td or Tdap) DTaP/Tdap/Td Vaccines (3 - Td or Tdap) [facility] Start: 04-04-2029 Urine microalbumin profile [facility] Start: 03-07-2026 Annual PCP Team Chronic Disease Visit Annual PCP Team Chronic Disease Visit [facility] Start: 02-28-2026 End: 02-28-2026 Patient encounter procedure 02/28/2026 1:00 PM EDT Office Visit [facility] [address] [place], [place] [id number] Renay Garrett MD [address] [place], [place] [id number] physical [facility] Comment on above: physical Start: 02-27-2026 Annual PCP Team Chronic Disease Visit Annual PCP Team Chronic Disease Visit [facility] Start: 02-13-2026 Annual PCP Team Chronic Disease Visit Annual PCP Team Chronic Disease Visit [facility] Start: 01-24-2026 Annual PCP Team Chronic Disease Visit Annual PCP Team Chronic Disease Visit [facility] Start: 01-16-2026 Diabetes: Estimated Glomerular Filtration Rate for Kidney Health Diabetes: Estimated Glomerular Filtration Rate for Kidney Health [facility] Start: 01-16-2026 Diabetes: Urine Albumin-Creatinine Ratio for Kidney Health Diabetes: Urine Albumin-Creatinine Ratio for Kidney Health [facility] Start: 01-16-2026 Hemoglobin A1c measurement Diabetes: Hemoglobin A1C [facility] Start: 01-16-2026 Hepatitis B screening Urine Albumin:Creatinine Ratio [facility] Start: 01-16-2026 Hepatitis B surface antibody level LDL Cholesterol [facility] Start: 01-16-2026 Thyroid stimulating hormone measurement TSH Level [facility] Start: 01-10-2026 Annual PCP Team Chronic Disease Visit Annual PCP Team Chronic Disease Visit [facility] Start: 12-18-2025 Fasting lipid profile LIPID SCREENING [facility] Start: 09-12-2025 Depression Monitoring Depression Monitoring [facility] Start: 08-05-2025 End: 08-05-2025 Patient encounter procedure 08/05/2025 1:00 PM EST Office Visit Cardiology [address] [place] [address] Guy Sam MD [address] [phone] Aortic Value disorder Cardiology Comment on above: Aortic Value disorder Start: 07-19-2025 Hemoglobin A1c measurement HbA1C [facility] Start: 07-16-2025 End: 07-16-2025 Patient encounter procedure 07/16/2025 2:40 PM EST Office Visit [facility] [address] [place] [phone] Robyn Taylor APRN.[facility] [address] [place] [address] Annual Wellness [facility] Comment on above: Annual Wellness Start: 06-20-2025 Hemoglobin A1c measurement HbA1C [facility] Start: 06-14-2025 End: 06-14-2025 Patient encounter procedure 06/14/2025 10:00 AM EST Office Visit [facility] [employer] [address] [place] [address] Erin Morris MD [address] [place] [phone] [facility] Start: 04-21-2025 End: 07-20-2025 CBC W Auto Differential panel - Blood COMPLETE BLOOD COUNT AND DIFFERENTIAL Lab Routine Iron deficiency anemia secondary to inadequate dietary iron intake Expected: 04/21/2025 (Approximate), Expires: 07/20/2025 [facility] Work Phone: Comment on above: Expected: 04/21/2025 (Approximate), Expi res: 07/20/2025 Start: 04-21-2025 End: 07-20-2025 Ferritin [Mass/volume] in Serum or Plasma FERRITIN Lab Routine Iron deficiency anemia secondary to inadequate dietary iron intake Expected: 04/21/2025 (Approximate), Expires: 07/20/2025 [facility] Comment on above: Expected: 04/21/2025 (Approximate), Expi res: 07/20/2025 Start: 04-21-2025 End: 07-20-2025 Iron and Iron binding capacity panel - Serum or Plasma IRON AND TIBC Lab Routine Iron deficiency anemia secondary to inadequate dietary iron intake Expected: 04/21/2025 (Approximate), Expires: 07/20/2025 [facility] Comment on above: Expected: 04/21/2025 (Approximate), Expi res: 07/20/2025 Start: 04-16-2025 End: 04-16-2025 Anticoagulant drug monitoring 04/16/2025 1:00 PM EDT Antico[facility] [address] [place] [address] [facility]str[facility] [address] [place] [address] inr [facility] Comment on above: inr Start: 04-01-2025 End: 04-01-2025 Patient encounter procedure 04/01/2025 2:00 PM EDT Appointment [facility] Non-Invasive Cardiology [address] [place] [address] Erin Morris MD [address] [place] [phone] [facility] Non-Invasive Cardiology Start: 03-26-2025 End: 03-26-2025 Anticoagulant drug monitoring 03/26/2025 12:00 PM EDT Anticoagulation Visit [facility] [address] [place] [address] Wstr, [facility] [address] [place] [address] INR [facility] Comment on above: INR Start: 03-25-2025 End: 03-25-2025 ambulatory 03/25/2025 4:00 PM EDT [facility] Neurology [address] [place], [place] [phone] Marysol Cardoza MD [address] [place], [place] [phone] DIABETIC NEUROPATHY Neurology Comment on above: DIABETIC NEUROPATHY Start: 03-15-2025 End: 03-15-2027 US Heart Transthoracic Transthoracic echocardiogram (TTE) complete with contrast, bubble, strain, and 3D PRN CV Echocardiography Routine H/O mechanical aortic valve replacement Expected: 03/15/2025 (Approximate), Expires: 03/15/2027 [facility] Work Phone: Comment on above: Expected: 03/15/2025 (Approximate), Expi res: 03/15/2027 Start: 03-15-2025 X-ray of cervical spine Cerv Spine 2 or 3 Views [facility] Start: 03-15-2025 XR Cervical spine 2 or 3 Views [facility] Start: 03-12-2025 End: 03-12-2025 ambulatory 03/12/2025 8:30 AM EDT [facility] Neurology [address] [place], [place] [phone] Marysol Cardoza MD [address] [place], [place] [phone] DIABETIC NEUROPATHY Neurology Comment on above: DIABETIC NEUROPATHY Start: 03-11-2025 COVID-19 Vaccine ( season) COVID-19 Vaccine ( season) [facility] Start: 03-11-2025 Influenza vaccination Influenza Vaccine [facility]) [facility] Start: 03-07-2025 End: 03-07-2025 Anticoagulant drug monitoring 03/07/2025 12:00 PM EDT Antico[facility] Visit [facility] [address] [place], [place] [address] Wstr, [facility] [place] [address] [place], [place] [phone] inr [facility] Comment on above: inr Start: 03-07-2025 End: 03-07-2025 Patient encounter procedure 03/07/2025 8:20 AM EDT [address] [place] [phone] Robyn Taylor APRN.AMBULANCE ATTENDANT [address] [place], [place] [address] [facility] Start: 02-28-2025 End: 02-28-2025 Patient encounter procedure 02/28/2025 11:30 AM EDT Office Visit [facility] [address] [place], [place] [phone] Vamshi Benson MD 1 [facility] [address] [place], [place] [phone] New Internal Referral from Robyn Taylor APRN.AMBULANCE ATTENDANT for PVD (Numbness of right foot, Type 1 diabetes mellitus with diabetic polyneuropathy) - PVR 12/19/24 [facility] Comment on above: New Internal Referral from Facundo Taylor APRN.AMBULANCE ATTENDANT for PVD (Numbness of right foot, Type 1 diabetes mellitus with diabetic polyneuropathy) - PVR 12/19/24 Start: 02-27-2025 End: 02-27-2025 Patient encounter procedure [facility] [place] Comment on above: est care Start: 02-26-2025 End: 02-26-2025 Anticoagulant drug monitoring 02/26/2025 4:30 PM EDT Anticoagulation Visit [facility] [address] [place] [address] Wstr, [facility] [address] [place] [address] inr [facility] Comment on above: inr Start: 02-09-2025 Diabetes: Estimated Glomerular Filtration Rate for Kidney Health Diabetes: Estimated Glomerular Filtration Rate for Kidney Health [facility] Start: 02-07-2025 End: 02-07-2025 Anticoagulant drug monitoring 02/07/2025 4:30 PM EDT Anticoagulation Visit [facility] [address] [place], [place] [phone] Wstr, [facility] [place] [address] [place] [address] inr [facility] Comment on above: inr Start: 02-06-2025 Thyroid stimulating hormone measurement TSH Level [facility] Start: 02-05-2025 Hemoglobin A1c measurement Diabetes: Hemoglobin A1C [facility] Start: 01-30-2025 End: 01-30-2025 Patient encounter procedure Radiology Comment on above: SHOUDLER XR RIGHT ARM PAIN Dr kuldeep Garg shoulder. Start: 01-24-2025 End: 01-24-2025 Patient encounter procedure 01/24/2025 1:40 PM EDT Office Visit [facility] [address] [place] [phone] Robyn Taylor APRN.AMBULANCE ATTENDANT [address] [place], [place] [phone] INR follow up CXR and labs. [facility] Comment on above: INR follow up CXR and labs. Start: 01-23-2025 End: 01-23-2025 Anticoagulant drug monitoring 01/23/2025 4:30 PM EDT Anticoagulation Visit [facility] [address] [place] [address] Wstr, [facility] [place] [address] [place] [address] inr [facility] Comment on above: inr Start: 01-18-2025 End: 01-18-2025 Patient encounter procedure 01/18/2025 9:45 AM EDT Office Visit [facility] [address] [place] [phone] Erin Morris MD [address] [place] [phone] [facility] Start: 01-17-2025 End: 01-17-2025 Anticoagulant drug monitoring 01/17/2025 12:00 PM EDT Anticoagulation Visit [facility] [address] [place] [address] Wstr, [facility] [place] [address] [place] [address] New pt INR [facility] Comment on above: New pt INR Start: 01-16-2025 End: 04-17-2025 25-hydroxyvitamin D3 [Mass/volume] in Serum or Plasma VITAMIN D 25 HYDROXY Lab Routine Vitamin D deficiency Expected: 01/16/2025 (Approximate), Expires: 04/17/2025 [facility] Comment on above: Expected: 01/16/2025 (Approximate), Expi res: 04/17/2025 Start: 01-16-2025 End: 04-17-2025 CBC W Auto Differential panel - Blood COMPLETE BLOOD COUNT AND DIFFERENTIAL Lab Routine Nonrheumatic aortic valve stenosis S/P AVR (aortic valve replacement) Chronic anemia Expected: 01/16/2025 (Approximate), Expires: 04/17/2025 [facility] Comment on above: Expected: 01/16/2025 (Approximate), Expi res: 04/17/2025 Start: 01-16-2025 End: 04-17-2025 Comprehensive metabolic 2000 panel - Serum or Plasma COMPREHENSIVE METABOLIC PANEL Lab Routine Nonrheumatic aortic valve stenosis S/P AVR (aortic valve replacement) Expected: 01/16/2025 (Approximate), Expires: 04/17/2025 [facility] Comment on above: Expected: 01/16/2025 (Approximate), Expi res: 04/17/2025 Start: 01-16-2025 End: 07-09-2025 Ferritin [Mass/volume] in Serum or Plasma FERRITIN Lab Routine Chronic anemia Expected: 01/16/2025, Expires: 07/09/2025 [facility] Comment on above: Expected: 01/16/2025, Expires: Start: 01-16-2025 End: 04-17-2025 Hemoglobin A1c in Blood HEMOGLOBIN A1C Lab Routine Type 1 diabetes mellitus with diabetic polyneuropathy (HCC) Expected: 01/16/2025 (Approximate), Expires: 04/17/2025 [facility] Comment on above: Expected: 01/16/2025 (Approximate), Expi res: 04/17/2025 Start: 01-16-2025 End: 07-09-2025 Iron and Iron binding capacity panel - Serum or Plasma IRON AND TIBC Lab Routine Chronic anemia Expected: 01/16/2025, Expires: 07/09/2025 [facility] Comment on above: Expected: 01/16/2025, Expires: Start: 01-16-2025 End: 04-17-2025 Lipid 1996 panel - Serum or Plasma LIPID PANEL, FASTING Lab Routine Type 1 diabetes mellitus with diabetic polyneuropathy (HCC) Dyslipidemia Expected: 01/16/2025 (Approximate), Expires: 04/17/2025 [facility] Comment on above: Expected: 01/16/2025 (Approximate), Expi res: 04/17/2025 Start: 01-16-2025 End: 04-17-2025 Microalbumin/Creatinine [Mass Ratio] in Urine ALBUMIN/CREATININE RATIO, URINE Lab Routine Type 1 diabetes mellitus with diabetic polyneuropathy (HCC) Expected: 01/16/2025, Expires: 04/17/2025 [facility] Comment on above: Expected: 01/16/2025, Expires: Start: 01-16-2025 End: 04-17-2025 PT panel - Platelet poor plasma by Coagulation assay PROTHROMBIN TIME 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 Expected: 01/16/2025, Expires: 04/17/2025 [facility] Comment on above: Expected: 01/16/2025, Expires: Start: 01-16-2025 End: 04-17-2025 Thyrotropin [Units/volume] in Serum or Plasma THYROID STIMULATING HORMONE Lab Routine Acquired hypothyroidism Expected: 01/16/2025 (Approximate), Expires: 04/17/2025 [facility] Comment on above: Expected: 01/16/2025 (Approximate), Expi res: 04/17/2025 Start: 01-16-2025 End: 04-17-2025 Thyroxine (T4) free [Mass/volume] in Serum or Plasma T4 FREE/FREE THYROXINE Lab Routine Acquired hypothyroidism Expected: 01/16/2025 (Approximate), Expires: 04/17/2025 [facility] Comment on above: Expected: 01/16/2025 (Approximate), Expi res: 04/17/2025 Start: 01-16-2025 End: 02-09-2026 XR Chest PA and Lateral XR CHEST 2V FRONTAL/LAT Radiology Routine Pleural effusion on right Expected: 01/16/2025 (Approximate), Expires: 02/09/2026 [facility] Comment on above: Expected: 01/16/2025 (Approximate), Expi res: 02/09/2026 Start: 01-09-2025 End: 01-09-2025 Patient encounter procedure Radiology Comment on above: MANJULA XR RIGHT ARM PAIN Start: 01-08-2025 End: 01-08-2025 Follow-up encounter 01/08/2025 9:45 AM EDT Procedure Cardiology [address] [place] [address] Surgery follow up Cardiology Comment on above: Surgery follow up Start: 01-08-2025 End: 01-08-2025 ambulatory 01/08/2025 9:30 AM EDT Results Only [facility] [address] [place] [address] cbc, cmp, ptinr [facility] J1-[facility] Comment on above: cbc, cmp, ptinr Start: 01-08-2025 End: 01-08-2025 Patient encounter procedure Radiology Comment on above: Surgery follow up Surgery Discharge J6 Start: 12-31-2024 End: 04-01-2025 CBC panel - Blood by Automated count COMPLETE BLOOD COUNT Lab Routine Surgery follow-up Expected: 12/31/2024, Expires: 04/01/2025 [facility] Work Phone: Comment on above: Expected: 12/31/2024, Expires: Start: 12-31-2024 End: 04-01-2025 Comprehensive metabolic 2000 panel - Serum or Plasma COMPREHENSIVE METABOLIC PANEL Lab Routine Surgery follow-up Expected: 12/31/2024, Expires: 04/01/2025 [facility] Comment on above: Expected: 12/31/2024, Expires: Start: 12-31-2024 End: 04-01-2025 PT panel - Platelet poor plasma by Coagulation assay PROTHROMBIN TIME Lab Routine Surgery follow-up Expected: 12/31/2024, Expires: 04/01/2025 [facility] Comment on above: Expected: 12/31/2024, Expires: Start: [...] Rplcmt prost aortic valve open xcp homogrf/stent [facility] CT & VAS Start: 12-24-2024 End: 12-24-2024 Admission to same day surgery center 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 Comment on above: CORONARY ANGIO W CATH PLACE W IMAGE INJE CT & INTERP W LT HEART CATH W INJECT LT VENTRGRAPHY Start: 12-24-2024 End: 12-24-2024 Cath plmt l hrt & arts w/njx & angio img s&i [facility] Start: 12-24-2024 Subsequent hospital visit by physician 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 Comment on above: Aortic valve disorder [I35.9] Start: 12-24-2024 End: 12-24-2024 ambulatory Cardiology Comment on above: LEFT Start: 12-24-2024 End: 12-24-2024 Patient encounter procedure 12/24/2024 7:00 AM EDT Office Visit Admitting [address] [place] [address] ADMIT Admitting Comment on above: ADMIT Start: 12-21-2024 End: 12-21-2024 Patient encounter procedure 12/21/2024 10:00 AM EDT Office Visit Dentistry [address] [place] [address] Bernabe Meeks, DMD [address] [place] [address] [facility] EXT# 3,12,19,29,30 *Any provider first available* Dentistry Comment on above: OHS EXT# 3,12,19,29,30 *Any provider fir st available* Start: 12-20-2024 End: 12-20-2024 Patient encounter procedure 12/20/2024 1:30 PM EDT Office Visit Cardiothoracic [address] [phone] [facility] Comment on above: [facility] Start: 12-20-2024 End: 12-20-2024 Patient encounter procedure 12/20/2024 12:20 PM EDT Office Visit Cardiothoracic [address] [phone] [facility] Cardiothor[facility] Comment on above: [facility] Start: 12-20-2024 End: 12-20-2024 Patient encounter procedure Cardiology Comment on above: Acquired hypothyroidism [E03.9] [facility] Start: 12-19-2024 End: 12-19-2024 Patient encounter procedure 12/19/2024 11:45 AM EDT Appointment Radiology [address] [phone] Acquired hypothyroidism [E03.9] Radiology Comment on above: Acquired hypothyroidism [E03.9] Start: 12-19-2024 End: 12-19-2024 ambulatory Cardiology Comment on above: Acquired hypothyroidism [E03.9] Start: 12-19-2024 End: 12-19-2024 Patient encounter procedure Pulmonary Medicine Comment on above: OHS CLEARANCE Type 1 diabetes jalil itus without complication (HCC) [E10.9] Acquired hypothyroid ism [E03.9] Start: 12-06-2024 Diabetes: Urine Albumin-Creatinine Ratio for Kidney Health Diabetes: Urine Albumin-Creatinine Ratio for Kidney Health [facility] Start: 12-06-2024 Hepatitis B screening Urine Albumin:Creatinine Ratio [facility] Start: 12-06-2024 Hepatitis B surface antibody level LDL Cholesterol [facility] Start: 12-06-2024 Lipid [address] Lipid Panel [facility] Start: 11-23-2024 Annual PCP Team Chronic Disease Visit Annual PCP Team Chronic Disease Visit [facility] Start: 11-22-2024 End: 11-22-2024 Patient encounter procedure Cardiology Comment on above: Aortic valve disorder [I35.9] Follow Up Start: 11-20-2024 End: 11-20-2024 Patient encounter procedure 11/20/2024 2:30 PM EDT Office Visit Cardiology [address] [place] [address] EVAL AV Cardiology Comment on above: EVAL AV Start: 11-20-2024 End: 11-20-2024 Patient encounter procedure Radiology Comment on above: Aortic valve disorder [I35.9] PLEASE LEAVE IV FOR [facility]SON Start: 11-20-2024 End: 11-20-2024 Patient encounter procedure Cardiology Comment on above: Aortic valve disorder [I35.9] Aortic valve disorde r Start: 09-07-2024 End: 09-07-2024 Patient encounter procedure 09/07/2024 1:30 PM EST Office Visit [employer] [address] [place] [address] Erin Morris MD [address] [place] [phone] [facility] Start: 05-15-2024 End: 05-14-2026 US Heart Transthoracic Transthoracic echocardiogram (TTE) complete with contrast, bubble, strain, and 3D PRN CV Echocardiography Routine Subvalvar aortic stenosis Subaortic membrane S/P AVR (aortic valve replacement) Expected: 05/15/2024 (Approximate), Expires: 05/14/2026 [employer] Work Phone: Comment on above: Expected: 05/15/2024 (Approximate), Expi res: 05/14/2026 Start: 05-08-2024 Hemoglobin A1c measurement HbA1C [facility] Start: 2024 Screening for malignant neoplasm of colon [facility] Start: 03-11-2024 COVID-19 Vaccine ( season) COVID-19 Vaccine ( season) [facility] Start: 03-11-2024 Influenza vaccination [facility] Start: 03-08-2024 Hemoglobin A1c measurement HbA1C [facility] Start: 03-05-2024 End: 03-05-2024 Patient encounter procedure 03/05/2024 8:00 AM EDT Office Visit [facility] [address] [place] [address] Sruthi Ambrosio, COVER OPERATOR.AMBULANCE ATTENDANT [address] [place] [address] 3 month follow up [facility] Comment on above: 3 month follow up Start: 03-04-2024 End: 06-03-2024 Thyrotropin [Units/volume] in Serum or Plasma THYROID STIMULATING HORMONE Lab Routine Acquired hypothyroidism Expected: 03/04/2024, Expires: 06/03/2024 [facility] Work Phone: Comment on above: Expected: 03/04/2024, Expires: Start: 03-04-2024 End: 06-03-2024 Thyroxine (T4) free [Mass/volume] in Serum or Plasma T4 FREE/FREE THYROXINE Lab Routine Acquired hypothyroidism Expected: 03/04/2024, Expires: 06/03/2024 [facility] Comment on above: Expected: 03/04/2024, Expires: Start: 03-04-2024 End: 06-03-2024 Triiodothyronine (T3) [Mass/volume] in Serum or Plasma T3 Lab Routine Acquired hypothyroidism Expected: 03/04/2024, Expires: 06/03/2024 [facility] Comment on above: Expected: 03/04/2024, Expires: 4 Start: 01-22-2024 3 comp foot exam completed DIABETIC FOOT EXAM [facility] Start: 01-22-2024 Diabetic foot examination Diabetic Foot Exam [facility] Start: 01-22-2024 Hemoglobin A1c measurement Diabetes: Hemoglobin A1C [facility] Start: 01-08-2024 ANNUAL PCP TEAM CHRONIC DISEASE VISIT ANNUAL PCP TEAM CHRONIC DISEASE VISIT [facility] Start: 12-29-2023 ANNUAL PCP TEAM CHRONIC DISEASE VISIT ANNUAL PCP TEAM CHRONIC DISEASE VISIT [facility] Start: 12-03-2023 ANNUAL PCP TEAM CHRONIC DISEASE VISIT ANNUAL PCP TEAM CHRONIC DISEASE VISIT [facility] Start: 12-02-2023 End: 12-02-2023 Patient encounter procedure 12/02/2023 11:30 AM EDT Office Visit [facility] Cardiology [address] [facility] [address] [place] [phone] Luz Maria Perez MD [address], [address] [place] [address] [facility] Cardiology Start: 11-24-2023 End: 02-23-2024 25-hydroxyvitamin D3 [Mass/volume] in Serum or Plasma VITAMIN D 25 HYDROXY Lab Routine Vitamin D deficiency Expected: 11/24/2023, Expires: 02/23/2024 [facility] Comment on above: Expected: 11/24/2023, Expires: Start: 11-24-2023 End: 02-23-2024 CBC W Auto Differential panel - Blood COMPLETE BLOOD COUNT AND DIFFERENTIAL Lab Routine Simple chronic bronchitis (HCC) Expected: 11/24/2023, Expires: 02/23/2024 [facility] Work Phone: Comment on above: Expected: 11/24/2023, Expires: 4 Start: 11-24-2023 End: 02-23-2024 Comprehensive metabolic 2000 panel - Serum or Plasma COMPREHENSIVE METABOLIC PANEL Lab Routine Type 1 diabetes mellitus with diabetic polyneuropathy (HCC) Expected: 11/24/2023, Expires: 02/23/2024 [facility] Comment on above: Expected: 11/24/2023, Expires: Start: 11-24-2023 End: 02-23-2024 Hemoglobin A1c in Blood HEMOGLOBIN A1C Lab Routine Type 1 diabetes mellitus with diabetic polyneuropathy (HCC) Expected: 11/24/2023, Expires: 02/23/2024 [facility] Comment on above: Expected: 11/24/2023, Expires: Start: 11-24-2023 End: 02-23-2024 LIPID PANEL, NONFASTING LIPID PANEL, NONFASTING Lab Routine Type 1 diabetes mellitus with diabetic polyneuropathy (HCC) Expected: 11/24/2023, Expires: 02/23/2024 [facility] Comment on above: Expected: 11/24/2023, Expires: Start: 11-24-2023 End: 02-23-2024 Microalbumin/Creatinine [Mass Ratio] in Urine ALBUMIN/CREATININE RATIO, URINE Lab Routine Type 1 diabetes mellitus with diabetic polyneuropathy (HCC) Expected: 11/24/2023, Expires: 02/23/2024 [facility] Comment on above: Expected: 11/24/2023, Expires: Start: 11-24-2023 End: 02-23-2024 PSA/PROSTATE SPECIFIC ANTIGEN SCREENING PSA/PROSTATE SPECIFIC ANTIGEN SCREENING Lab Routine Screening for prostate cancer Expected: 11/24/2023, Expires: 02/23/2024 [facility] Comment on above: Expected: 11/24/2023, Expires: Start: 11-24-2023 End: 02-23-2024 Thyrotropin [Units/volume] in Serum or Plasma THYROID STIMULATING HORMONE Lab Routine Acquired hypothyroidism Expected: 11/24/2023, Expires: 02/23/2024 [facility] Comment on above: Expected: 11/24/2023, Expires: Start: 11-24-2023 End: 02-23-2024 Thyroxine (T4) free [Mass/volume] in Serum or Plasma T4 FREE/FREE THYROXINE Lab Routine Acquired hypothyroidism Expected: 11/24/2023, Expires: 02/23/2024 [facility] Comment on above: Expected: 11/24/2023, Expires: Start: 11-24-2023 End: 02-23-2024 Triiodothyronine (T3) Free [Mass/volume] in Serum or Plasma T3, FREE Lab Routine Acquired hypothyroidism Expected: 11/24/2023, Expires: 02/23/2024 [facility] Comment on above: Expected: 11/24/2023, Expires: Start: 11-24-2023 End: 11-24-2023 Patient encounter procedure 11/24/2023 8:00 AM EDT Office Visit [facility] [address] [place] [address] Sruthi Ambrosio APRN.AMBULANCE ATTENDANT [address] [place] [address] needs refill [facility] Comment on above: needs refill Start: 05-06-2023 End: 05-06-2023 Patient encounter procedure 05/06/2023 Office Visit Cardiology Luz Maria Perez MD [address] [place] [address], [address] [place] [address] [facility] Cardiology Start: 04-23-2023 Hemoglobin A1c measurement HbA1C [facility] Start: 04-23-2023 Hemoglobin A1c/Hemoglobin.total in Blood HBA1C [facility] Start: 03-26-2023 DTaP/Tdap/Td vaccine (2 - Td) DTaP/Tdap/Td vaccine (2 - Td) [place], [place] Start: 03-11-2023 Influenza vaccination [facility] Start: 02-16-2023 Thyroid stimulating hormone measurement TSH Level [facility] Start: 12-31-2022 Hepatitis B surface antibody level LDL CHOLESTEROL [facility] Start: 11-29-2022 Hemoglobin A1c/Hemoglobin.total in Blood HBA1C [facility] Start: 11-22-2022 Hemoglobin A1c measurement Diabetes: Hemoglobin A1C [facility] Start: 11-22-2022 Hemoglobin A1c/Hemoglobin.total in Blood HBA1C [facility] Start: 10-19-2022 Hemoglobin A1c/Hemoglobin.total in Blood HBA1C [facility] Start: 09-06-2022 End: 09-06-2022 Patient encounter procedure 09/06/2022 Office Visit Endocrinology Omayra Mitchell MD [address] [facility] [address] [place] [address] Endocrinology [facility] Start: 09-01-2022 Hemoglobin A1c measurement Diabetes: Hemoglobin A1C [facility] Start: 07-27-2022 End: 07-27-2022 Patient encounter procedure 07/27/2022 Office Visit Cardiology Luz Maria Perez MD [address] [place] [address], [address] [place] [phone] [facility] Cardiology Start: 07-25-2022 Hemoglobin A1c/Hemoglobin.total in Blood HBA1C [facility] Start: 07-21-2022 End: 09-20-2022 ALBUMIN/CREAT RATIO RND UR ALBUMIN/CREAT RATIO RND UR Lab Routine Type 1 diabetes mellitus with hyperglycemia (HCC) Expected: 07/21/2022, Expires: 09/20/2022 [facility] Work Phone: Comment on above: Expected: 07/21/2022, Expires: 3 Start: 07-21-2022 End: 09-20-2022 Comprehensive metabolic 2000 panel - Serum or Plasma COMP METABOLIC PANEL Lab Routine Type 1 diabetes mellitus with hyperglycemia (HCC) Expected: 07/21/2022, Expires: 09/20/2022 [facility] Work Phone: Comment on above: Expected: 07/21/2022, Expires: 3 Start: 07-21-2022 End: 09-20-2022 Lipid 1996 panel - Serum or Plasma LIPID PANEL BASIC Lab Routine Type 1 diabetes mellitus with hyperglycemia (HCC) Expected: 07/21/2022, Expires: 09/20/2022 [facility] Work Phone: Comment on above: Expected: 07/21/2022, Expires: 3 Start: 07-21-2022 End: 09-20-2022 Thyrotropin [Units/volume] in Serum or Plasma TSH BLD Lab Routine Type 1 diabetes mellitus with hyperglycemia (HCC) Expected: 07/21/2022, Expires: 09/20/2022 [facility] Work Phone: Comment on above: Expected: 07/21/2022, Expires: 3 Start: 07-21-2022 End: 09-20-2022 Thyroxine (T4) free [Mass/volume] in Serum or Plasma T4 FREE/FREE THYROX Lab Routine Type 1 diabetes mellitus with hyperglycemia (HCC) Expected: 07/21/2022, Expires: 09/20/2022 [facility] Work Phone: Comment on above: Expected: 07/21/2022, Expires: 3 Start: 04-24-2022 Hemoglobin A1c/Hemoglobin.total in Blood HBA1C [facility] Start: 04-03-2022 End: 06-03-2022 aPTT in Platelet poor plasma by Coagulation assay ACTIVATED PTT Lab Routine Subaortic membrane Diabetes mellitus type 1, controlled, without complications (HCC) Hypothyroidism, unspecified type Pre-operative cardiovascular examination Expected: 04/03/2022, Expires: 06/03/2022 [facility] Work Phone: Comment on above: Expected: 04/03/2022, Expires: 2 Start: 04-03-2022 End: 06-03-2022 CBC W Auto Differential panel - Blood CBC + DIFF Lab Routine Subaortic membrane Diabetes mellitus type 1, controlled, without complications (HCC) Hypothyroidism, unspecified type Pre-operative cardiovascular examination Expected: 04/03/2022, Expires: 06/03/2022 [facility] Work Phone: Comment on above: Expected: 04/03/2022, Expires: 2 Start: 04-03-2022 End: 06-03-2022 Comprehensive metabolic 2000 panel - Serum or Plasma COMP METABOLIC PANEL Lab Routine Subaortic membrane Diabetes mellitus type 1, controlled, without complications (HCC) Hypothyroidism, unspecified type Pre-operative cardiovascular examination Expected: 04/03/2022, Expires: 06/03/2022 [facility] Work Phone: Comment on above: Expected: 04/03/2022, Expires: 2 Start: 04-03-2022 End: 06-03-2022 Hemoglobin A1c in Blood HGB A1C Lab Routine Subaortic membrane Diabetes mellitus type 1, controlled, without complications (HCC) Hypothyroidism, unspecified type Pre-operative cardiovascular examination Expected: 04/03/2022, Expires: 06/03/2022 [facility] Work Phone: Comment on above: Expected: 04/03/2022, Expires: 2 Start: 04-03-2022 End: 06-03-2022 Lactate dehydrogenase [Enzymatic activity/volume] in Serum or Plasma LD LACTATE DEHYDRO Lab Routine Subaortic membrane Diabetes mellitus type 1, controlled, without complications (HCC) Hypothyroidism, unspecified type Pre-operative cardiovascular examination Expected: 04/03/2022, Expires: 06/03/2022 [facility] Work Phone: Comment on above: Expected: 04/03/2022, Expires: 2 Start: 04-03-2022 End: 06-03-2022 PT panel - Platelet poor plasma by Coagulation assay PROTHROMBIN TIME/PT Lab Routine Subaortic membrane Diabetes mellitus type 1, controlled, without complications (HCC) Hypothyroidism, unspecified type Pre-operative cardiovascular examination Expected: 04/03/2022, Expires: 06/03/2022 [facility] Work Phone: Comment on above: Expected: 04/03/2022, Expires: 2 Start: 04-03-2022 End: 06-03-2022 Thyrotropin [Units/volume] in Serum or Plasma TSH BLD Lab Routine Subaortic membrane Diabetes mellitus type 1, controlled, without complications (HCC) Hypothyroidism, unspecified type Pre-operative cardiovascular examination Expected: 04/03/2022, Expires: 06/03/2022 [facility] Work Phone: Comment on above: Expected: 04/03/2022, Expires: 2 Start: 04-03-2022 End: 06-03-2022 TYPE AND SCREEN,30 DAY TYPE AND SCREEN,30 DAY Blood Bank Routine Subaortic membrane Diabetes mellitus type 1, controlled, without complications (HCC) Hypothyroidism, unspecified type Pre-operative cardiovascular examination Expected: 04/03/2022, Expires: 06/03/2022 [facility] Work Phone: Comment on above: Expected: 04/03/2022, Expires: 2 Start: 04-03-2022 End: 06-03-2022 URINALYSIS, DIPSTICK ONLY URINALYSIS, DIPSTICK ONLY Lab Routine Subaortic membrane Diabetes mellitus type 1, controlled, without complications (HCC) Hypothyroidism, unspecified type Pre-operative cardiovascular examination Expected: 04/03/2022, Expires: 06/03/2022 [facility] Work Phone: Comment on above: Expected: 04/03/2022, Expires: 2 Start: 03-11-2022 Influenza vaccination [facility] Start: 02-17-2022 End: 04-19-2022 CBC panel - Blood by Automated count CBC Lab Routine Wound infection after surgery Expected: 02/17/2022, Expires: 04/19/2022 [facility] Work Phone: Comment on above: Expected: 02/17/2022, Expires: 2 Start: 02-17-2022 End: 04-19-2022 Comprehensive metabolic 2000 panel - Serum or Plasma COMP METABOLIC PANEL Lab Routine Wound infection after surgery Expected: 02/17/2022, Expires: 04/19/2022 [facility] Work Phone: Comment on above: Expected: 02/17/2022, Expires: 2 Start: 02-17-2022 End: 03-17-2023 Ct thorax w/o contrast material CT CHEST WO IVCON Radiology Routine Localized swelling, mass and lump, trunk S/P AVR (aortic valve replacement) S/P TVR (tricuspid valve repair) Wound infection after surgery Expected: 02/17/2022, Expires: 03/17/2023 [facility] Work Phone: Comment on above: Expected: 02/17/2022, Expires: 3 Start: 02-05-2022 End: 04-07-2022 CBC W Auto Differential panel - Blood CBC + DIFF Lab Routine Subaortic membrane Shortness of breath Aortic valve disorder Expected: 02/05/2022, Expires: 04/07/2022 [facility] Work Phone: Comment on above: Expected: 02/05/2022, Expires: 2 Start: 02-05-2022 End: 04-07-2022 Comprehensive metabolic 2000 panel - Serum or Plasma COMP METABOLIC PANEL Lab Routine Subaortic membrane Shortness of breath Aortic valve disorder Expected: 02/05/2022, Expires: 04/07/2022 [facility] Work Phone: Comment on above: Expected: 02/05/2022, Expires: 2 Start: 01-29-2022 End: 03-31-2022 Basic metabolic 2000 panel - Serum or Plasma BASIC METABOLIC PNL Lab Routine Atelectasis Nonrheumatic mitral valve regurgitation Expected: 01/29/2022, Expires: 03/31/2022 [facility] Work Phone: Comment on above: Expected: 01/29/2022, Expires: 2 Start: 01-29-2022 End: 03-31-2022 CBC panel - Blood by Automated count CBC Lab Routine Atelectasis Nonrheumatic mitral valve regurgitation Expected: 01/29/2022, Expires: 03/31/2022 [facility] Work Phone: Comment on above: Expected: 01/29/2022, Expires: 2 Start: 01-29-2022 End: 03-31-2022 Lipid 1996 panel - Serum or Plasma LIPID PANEL BASIC Lab Routine Atelectasis Nonrheumatic mitral valve regurgitation Expected: 01/29/2022, Expires: 03/31/2022 [facility] Work Phone: Comment on above: Expected: 01/29/2022, Expires: 2 Start: 01-20-2022 Thyroid stimulating hormone measurement TSH [facility] Start: 01-20-2022 Urine screening for protein MICROALBUMINURIA [facility] Start: 01-06-2022 Depression screening using PHQ-9 (Patient Health Questionnaire 9) score DEPRESSION SCREENING [facility] Start: 01-01-2022 End: 05-03-2022 SARS-CoV-2 (COVID-19) RNA [Presence] in Respiratory specimen by VAISHALI with probe detection INTERMEDIATE RAPID COVID Microbiology Routine Subaortic membrane Diabetes mellitus type 1, controlled, without complications (HCC) Hypothyroidism, unspecified type Pre-operative cardiovascular examination Expected: 01/01/2022, Expires: 05/03/2022 [facility] Work Phone: Comment on above: Expected: 01/01/2022, Expires: 2 Start: 12-31-2021 End: 01-30-2023 LUNG DIFFUSION CAPACITY (DLCO) LUNG DIFFUSION CAPACITY (DLCO) PFT Routine Ex-smoker Dyspnea, unspecified type Expected: 12/31/2021, Expires: 01/30/2023 [facility] Work Phone: Comment on above: Expected: 12/31/2021, Expires: 3 Start: 12-31-2021 End: 01-30-2023 SPIROMETRY - BASELINE AND POST DILATOR SPIROMETRY - BASELINE AND POST DILATOR PFT Routine Ex-smoker Expected: 12/31/2021, Expires: 01/30/2023 [facility] Work Phone: Comment on above: Expected: 12/31/2021, Expires: 3 Start: 12-18-2021 Lipid panel [facility] Start: 12-18-2021 Renal function test NOS RENAL PROFILE [facility] Start: 12-18-2021 Thyroid stimulating hormone measurement TSH [facility] Start: 12-18-2021 Urine screening for protein MICROALBUMINURIA [facility] Start: 11-27-2021 Depression screening using PHQ-9 (Patient Health Questionnaire 9) score DEPRESSION SCREENING [facility] Start: 10-24-2021 Depression screening using PHQ-9 (Patient Health Questionnaire 9) score DEPRESSION SCREENING [facility] Start: 10-20-2021 Depression screening using PHQ-9 (Patient Health Questionnaire 9) score DEPRESSION SCREENING [facility] Start: 10-06-2021 Diabetic foot examination FOOT EXAM [facility] Start: 07-01-2021 End: 07-01-2021 Patient encounter procedure 07/01/2021 Office Visit Grover Hollingsworth, BRADEN [address] [place] [id number] [facility] Start: 06-30-2021 End: 06-30-2021 Patient encounter procedure 06/30/2021 Office Visit Family Medicine Giovanni Ellis, AMBULANCE ATTENDANT [address] [place] [address] [facility] Start: 05-27-2021 End: 05-27-2021 Patient encounter procedure [facility] Start: 05-25-2021 End: 05-25-2021 Patient encounter procedure 05/25/2021 Office Visit Cardiology Noam Luevano MD [address] [place] [phone] [facility] Start: 04-07-2021 COVID-19 VACCINE (3 - Booster for Moderna series) COVID-19 VACCINE (3 - Booster for Moderna series) [facility] Start: 03-24-2021 Hemoglobin A1c measurement HEMOGLOBIN A1C [facility] Start: 03-11-2021 Influenza vaccination Flu vaccine (#1) [facility] Start: 03-11-2021 Influenza vaccination given INFLUENZA VACCINE (#1) [facility] Start: 02-25-2021 End: 02-25-2021 Patient encounter procedure 02/25/2021 Appointment Sleep Medicine Nate Saenz MD [address] [place] [address] [phone] [facility] Start: 02-24-2021 End: 02-24-2021 Patient encounter procedure 02/24/2021 Appointment Sleep Medicine Nate Saenz MD [address] [place] [address] [phone] [facility] Start: 02-19-2021 End: 02-19-2021 Patient encounter procedure 02/19/2021 Office Visit Eliza Doshi RDH [facility] Start: 02-12-2021 End: 02-12-2021 [facility] Start: 02-11-2021 End: 02-11-2021 Patient encounter procedure 02/11/2021 Office Visit Cardiology Noam Luevano MD [address] [place] [address] [facility] Start: 02-05-2021 End: 02-05-2021 Patient encounter procedure 02/05/2021 Office Visit Family Medicine Giovanni Ellis, AMBULANCE ATTENDANT [address] [place] [address] [phone] [facility] Start: 01-22-2021 End: 01-22-2021 Patient encounter procedure 01/22/2021 Office Visit Pain Medicine Abundio Mercado MD [address] [place] [address] [phone] [facility] Start: 01-21-2021 End: 01-21-2021 Telemedicine consultation with patient 01/21/2021 Telemedicine Orthopedic Surgery Kaela Fatima PA-C [address] [place] [address] [phone] [facility] Start: 01-20-2021 End: 01-20-2021 Patient encounter procedure 01/20/2021 Office Visit Dentistry Grover Mays DDS [address] [place] [address] [phone] [facility] Start: 01-19-2021 End: 01-19-2021 Patient encounter procedure 01/19/2021 Office Visit Endocrinology Jessee Carrasco MD [address] [facility] [address] [place] [address] [phone] [facility] Start: 01-06-2021 End: 01-06-2021 Patient encounter procedure 01/06/2021 Office Visit Family Medicine Giovanni Ellis, QAMAR [address] [place] [address] [phone] [facility] Start: 12-31-2020 COVID-19 VACCINE (3 - Booster for Moderna series) COVID-19 VACCINE (3 - Booster for Moderna series) [facility] Start: 12-31-2020 COVID-19 Vaccine (3 - Moderna series) COVID-19 Vaccine (3 - Moderna series) [facility] Start: 12-26-2020 Hemoglobin A1c measurement HEMOGLOBIN A1C [facility] Start: 12-23-2020 End: 12-23-2020 Patient encounter procedure 12/23/2020 Office Visit Orthopedic Surgery Kaela Fatima PA-C [address] [place] [address] [phone] [facility] Start: 12-22-2020 End: 12-22-2020 Patient encounter procedure 12/22/2020 Office Visit Dentistry Grover Mays DDS [address] [place] [address] [phone] [facility] Start: 12-11-2020 End: 12-11-2020 Patient encounter procedure 12/11/2020 Office Visit Otolaryngology Nate Saenz MD [address] [place] [address] [phone] [facility] Start: 12-04-2020 End: 12-04-2020 Patient encounter procedure 12/04/2020 Office Visit Dentistry Eliza Huang [facility] Start: 11-19-2020 End: 11-19-2020 Patient encounter procedure 11/19/2020 Office Visit Cardiology Noam Luevano MD [address] [place] [address] [phone] [facility] Start: 11-06-2020 End: 11-06-2020 Patient encounter procedure 11/06/2020 Office Visit Family Medicine Giovanni Ellis, AMBULANCE ATTENDANT [address] [place] [address] [phone] [facility] Start: 11-05-2020 End: 11-05-2020 ambulatory 11/05/2020 Immunization Family Medicine [facility] Start: 10-30-2020 End: 10-30-2020 Patient encounter procedure 10/30/2020 Office Visit Antonella Mays Grover, DDS [address] [place] [address] [phone] [facility] Start: 08-08-2020 [object Object] Diabetic foot exam [place], [place] Start: 08-08-2020 A1C test (Diabetic or Prediabetic) A1C test (Diabetic or Prediabetic) [place] Start: 08-08-2020 Diabetic foot examination Diabetic foot exam [facility] Start: 08-08-2020 Hemoglobin A1c measurement A[facility]C test (Diabetic or Prediabetic) [facility] Start: 06-18-2020 Thyroid stimulating hormone measurement TSH testing [facility] Start: 06-18-2020 TSH testing TSH testing [place], [place] Start: 04-04-2020 ANNUAL PCP TEAM CHRONIC DISEASE VISIT ANNUAL PCP TEAM CHRONIC DISEASE VISIT [facility] Start: 04-04-2020 PNEUMOCOCCAL (2 - PPSV23 or PCV20) PNEUMOCOCCAL (2 - PPSV23 or PCV20) [facility] Start: 03-11-2020 Influenza vaccination given INFLUENZA VACCINE (#1) [facility] Start: 12-18-2019 End: 12-18-2019 Office Visit 12/18/2019 Office Visit Family Medicine Daria Stephenson MD [address] [place] [address] [phone] [facility] Start: 12-12-2019 A1C test (Diabetic or Prediabetic) A1C test (Diabetic or Prediabetic) [place] Start: 12-12-2019 TSH testing TSH testing [place], [place] Start: 05-20-2019 Diabetic microalbuminuria test Diabetic microalbuminuria test [place] Start: 05-20-2019 Hepatitis B screening URINE ALBUMIN:CREATININE RATIO [facility] Start: 05-20-2019 Lipid panel Lipid screen [facility] Start: 05-20-2019 Lipid screen Lipid screen [place], [place] Start: 05-20-2019 Urine screening for protein Diabetic microalbuminuria test [facility] Start: 03-11-2019 Influenza vaccination Flu vaccine (#1) [place] Start: 07-24-2014 3 comp foot exam completed DIABETIC FOOT EXAM [facility] Start: 06-18-2014 Glaucoma screening Dilated Retinal Exam [facility] Start: 06-18-2014 Hepatitis C antibody, confirmatory test DILATED RETINAL EXAM [facility] Start: 2014 Fasting lipid profile LIPID SCREENING [facility] Start: 06-28-2011 HEPATITIS B (2 of 3 - Risk 3-dose series) [facility] Start: 06-28-2011 Hepatitis B vaccination HEPATITIS B VACCINE (ADULT) (2 of 3 - Risk 3-dose series) [facility] Start: 06-28-2011 Hepatitis B Vaccines (2 of 3 - 19+ 3-dose series) Hepatitis B Vaccines (2 of 3 - 19+ 3-dose series) [facility] Start: 06-28-2011 Hepatitis B Vaccines (2 of 3 - 3-dose series) Hepatitis B Vaccines (2 of 3 - 3-dose series) [facility] Start: 2006 HPV Vaccine (1 - 3-dose SCDM series) HPV Vaccine (1 - 3-dose SCDM series) [facility] Start: 1998 Hepatitis A Vaccines (1 of 2 - Risk 2-dose series) Hepatitis A Vaccines (1 of 2 - Risk 2-dose series) [facility] Start: 1998 HEPATITIS B (1 of 3 - Risk 3-dose series) HEPATITIS B (1 of 3 - Risk 3-dose series) [facility] Start: 1998 Hepatitis B vaccination HEPATITIS B VACCINE (ADULT) (1 of 3 - Risk 3-dose series) [facility] Start: 1998 Hepatitis B Vaccine (1 of 3 - Risk 3-dose series) Hepatitis B Vaccine (1 of 3 - Risk 3-dose series) [facility] Start: 1998 Urine screening for protein Diabetes: Urine Protein Screening [facility] Start: 1997 ANNUAL PCP TEAM CHRONIC DISEASE VISIT ANNUAL PCP TEAM CHRONIC DISEASE VISIT [facility] Start: 1997 ANNUAL WELLNESS VISIT ANNUAL WELLNESS VISIT [facility] Start: 1997 Diabetic retinal exam Diabetic retinal exam [facility] Start: 1997 Hepatitis B surface antibody level LDL CHOLESTEROL [facility] Start: 1997 HEPATITIS C SCREENING HEPATITIS C SCREENING [facility] Start: 1997 Hepatitis C screening Hepatitis C Screening [facility] Start: 1997 HIV SCREENING HIV SCREENING [facility] Start: 1991 Depression Monitoring Depression Monitoring [facility] Start: 1991 Depresssion Monitoring Depresssion Monitoring [facility] Start: 1990 Diphtheria + pertussis + tetanus vaccine (product) DTAP/TDAP/TD VACCINE (1 - Tdap) [facility] Start: 1989 [object Object] Diabetic foot exam [place], [place] Start: 1989 Diabetic foot examination Diabetes: Foot Exam [facility] Start: 1989 Diabetic retinal exam Diabetic retinal exam [place], [place] Start: 1989 Glaucoma screening Diabetes: Retinopathy Screening [facility] Start: 1989 Preventive dental service Diabetes: Dental Exam [facility] Start: 1984 COVID-19 Vaccine (1) COVID-19 Vaccine (1) [facility] Start: 1984 Hemoglobin A1c/Hemoglobin.total in Blood HBA1C [facility] Start: 1980 Hepatitis A Vaccines (1 of 2 - Risk 2-dose series) Hepatitis A Vaccines (1 of 2 - Risk 2-dose series) [facility] Start: 1980 Thyroid stimulating hormone measurement TSH [facility] Start: 1979 COVID-19 Vaccine (#1) COVID-19 Vaccine (#1) [facility] Start: 1979 Cyanocobalamin vitamin b-12 Vitamin B-12 [facility] Start: 1979 Diabetes: Celiac Disease Screening Diabetes: Celiac Disease Screening [facility] Start: 1979 Hepatitis C screening Hepatitis C screen [facility] Start: 1979 HIV screening HIV Screening [facility] Start: 1979 Lipid panel [facility] Start: 1979 Ophthalmic examination and evaluation OPHTHALMOLOGY EXAM [facility] Start: 1979 Renal function test NOS RENAL PROFILE [facility] Start: 1979 Screening for malignant neoplasm of colon [facility] Start: 1979 Urine screening for protein MICROALBUMINURIA [facility] 3 EXTRACTION, ERUPTE D TOOTH REQUIRING REMOVAL OF BONE AND/OR SECTIONING OF TOOTH, AND INCLUDING ELEVATION OF MUCOPERIOSTE [facility] Work Phone: Comment on above: 1 Occurrences starting 11/30/2024 Bacteria identified in Wound by Culture WOUND CULTURE AND GRAM STAIN Microbiology Routine Wound drainage 02/09/2022 4:14 PM EDT [facility] Work Phone: Bacteria identified in Wound by Culture WOUND CULTURE AND GRAM STAIN Microbiology Routine Wound disruption, post-op, skin, initial encounter 02/17/2022 3:46 PM EDT [facility] Work Phone: Cardiac mri for [facility] flow mapping MRI CARDIAC VELOCITY FLOW MAP Radiology Routine Subaortic membrane Diabetes mellitus type 1, controlled, without complications (HCC) Hypothyroidism, unspecified type Pre-operative cardiovascular examination Ordered: 01/01/2022 [facility] Work Phone: Comment on above: Ordered: 01/01/2022 Cardiac mri w/wo contrast & further seq MRI CARDIAC MORPH FUNC WO/W IVCON Radiology Routine Subaortic membrane Diabetes mellitus type 1, controlled, without complications (HCC) Hypothyroidism, unspecified type Pre-operative cardiovascular examination Ordered: 01/01/2022 [facility] Work Phone: Comment on above: Ordered: 01/01/2022 Ct thorax w/o contra st material CT CHEST CARDIAC WO IVCON Radiology Routine Subaortic membrane Shortness of breath Aortic valve disorder Ordered: 11/06/2021 [facility] Work Phone: Comment on above: Ordered: 11/06/2021 End: 09-16-2025 CTA Chest vessels W contrast IV CTA CHEST (GATED) W IVCON Radiology Routine Aortic valve disorder 1 Occurrences starting 08/17/2024 until 09/16/2025 [facility] Comment on above: 1 Occurrences starting 08/17/2024 until 09/16/2025 CTA Chest vessels W contrast IV CTA CHEST (GATED) W IVCON Radiology Routine Aortic valve disorder 11/20/2024 3:44 PM EDT [facility] Work Phone: End: 11-06-2022 ECG COMPLETE ECG COMPLETE ECG Routine Subaortic membrane Shortness of breath Aortic valve disorder 1 Occurrences starting 11/06/2021 until 11/06/2022 [facility] Work Phone: Comment on above: 1 Occurrences starting 11/06/2021 until 11/06/2022 End: 01-29-2023 ECG COMPLETE ECG COMPLETE ECG Routine Atelectasis Nonrheumatic mitral valve regurgitation 1 Occurrences starting 01/29/2022 until 01/29/2023 [facility] Work Phone: Comment on above: 1 Occurrences starting 01/29/2022 until 01/29/2023 End: 08-24-2025 ECG COMPLETE ECG COMPLETE ECG Routine Aortic valve insufficiency, etiology of cardiac valve disease unspecified Tricuspid valve insufficiency, unspecified etiology Mitral valve insufficiency, unspecified etiology 1 Occurrences starting 08/24/2024 until 08/24/2025 [facility] Work Phone: Comment on above: 1 Occurrences starting 08/24/2024 until 08/24/2025 End: 12-31-2025 ECG COMPLETE ECG COMPLETE ECG Routine Surgery follow-up 1 Occurrences starting 12/31/2024 until 12/31/2025 [facility] Comment on above: 1 Occurrences starting 12/31/2024 until 12/31/2025 End: 01-24-2026 ECG COMPLETE ECG COMPLETE ECG Routine Pleural effusion on right Tachycardia Nonrheumatic aortic valve stenosis S/P AVR (aortic valve replacement) 1 Occurrences starting 01/24/2025 until 01/24/2026 [facility] Comment on above: 1 Occurrences starting 01/24/2025 until 01/24/2026 ECHO TRANSESOPHAGEAL ECHO TRANSE SOPHAGEAL Cardiology Routine Aortic valve disorder Ordered: 08/17/2024 [facility] Comment on above: Ordered: 08/17/2024 Echocardiography ECHO Cardiology Routine Subaortic membrane Shortness of breath Aortic valve disorder Ordered: 11/06/2021 [facility] Work Phone: Comment on above: Ordered: 11/06/2021 End: 01-29-2023 Echocardiography ECHO Cardiology Routine Atelectasis Nonrheumatic mitral valve regurgitation 1 Occurrences starting 01/29/2022 until 01/29/2023 [facility] Work Phone: Comment on above: 1 Occurrences starting 01/29/2022 until 01/29/2023 End: 08-17-2025 Echocardiography ECHO Cardiology Routine Aortic valve disorder 1 Occurrences starting 08/17/2024 until 08/17/2025 [facility] Work Phone: Comment on above: 1 Occurrences starting 08/17/2024 until 08/17/2025 EKG 12 Lead EKG 12 Lead ECG Routine 08/31/2019 12:43 PM [place], [place] End: 12-18-2020 HCV Quant by NAAT HCV Quant by NAAT Lab Routine Elevated liver enzymes 1 Occurrences starting 12/18/2020 until 12/18/2020 [facility] Comment on above: 1 Occurrences starting 12/18/2020 until 12/18/2020 HCV Quant by NAAT HCV Quant by N AAT Lab Routine Elevated liver enzymes 12/18/2020 2:45 PM EDT [facility] End: 07-21-2023 Hemoglobin A1c/Hemoglobin.total in Blood HEMOGLOBIN A1C (POC) Lab Routine Type 1 diabetes mellitus with hyperglycemia (HCC) Every 3 months for 4 Occurrences starting 07/21/2022 until 07/21/2023 [facility] Work Phone: Comment on above: Every 3 months for 4 Occurrences startin g 07/21/2022 until 07/21/2023 End: 03-06-2026 INR in Platelet poor plasma by Coagulation assay INR (POC) 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 of 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 99 Occurrences starting 03/06/2025 until 03/06/2026 [facility] Work Phone: Comment on above: 99 Occurrences starting 03/06/2025 until 03/06/2026 LUNG DIFFUSION CAPAC ITY (DLCO) LUNG DIFFUSION CAPACITY (DLCO) PFT Routine Subaortic membrane Diabetes mellitus type 1, controlled, without complications (HCC) Hypothyroidism, unspecified type Pre-operative cardiovascular examination Ordered: 01/01/2022 [facility] Work Phone: Comment on above: Ordered: 01/01/2022 LUNG DIFFUSION CAPAC ITY (DLCO) LUNG DIFFUSION CAPACITY (DLCO) PFT Routine Type 1 diabetes mellitus without complication (HCC) Acquired hypothyroidism Pre-operative cardiovascular examination Aortic valve disorder 12/19/2024 11:08 AM EDT [facility] End: 01-15-2021 MRI Arthrogram Hip Right With IV Contrast MRI Arthrogram Hip Right With IV Contrast Imaging Routine Chronic right hip pain 1 Occurrences starting 01/15/2021 until 01/15/2021 [facility] Comment on above: 1 Occurrences starting 01/15/2021 until 01/15/2021 MRI Arthrogram Hip R ight With IV Contrast MRI Arthrogram Hip Right With IV Contrast Imaging Routine Chronic right hip pain 01/15/2021 4:06 PM EDT [facility] Patient Education Coronavirus Di roberte 2019 (COVID-19): Caring for Yourself or Others [facility] Work Phone: Patient referral [facility] Work Phone: Prothrombin time INR FINGERSTICK B/O Lab Routine alf current use of anticoagulant therapy Ordered: 01/10/2025 [facility] Work Phone: Comment on above: Ordered: 01/10/2025 End: 01-15-2026 PT panel - Platelet poor plasma by Coagulation assay PROTHROMBIN TIME Lab Routine 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 50 Occurrences starting 01/15/2025 until 01/15/2026 [facility] Work Phone: Comment on above: 50 Occurrences starting 01/15/2025 until 01/15/2026 End: 12-06-2022 Radiologic exam chest 2 views XR CHEST 2V FRONTAL/LAT Radiology Routine Subaortic membrane Shortness of breath Aortic valve disorder 1 Occurrences starting 11/06/2021 until 12/06/2022 [facility] Work Phone: Comment on above: 1 Occurrences starting 11/06/2021 until 12/06/2022 SPIROMETRY BASELINE ONLY [facility] Work Phone: Comment on above: Ordered: 01/01/2022 SPIROMETRY BASELINE ONLY SPIROME TRY BASELINE ONLY PFT Routine Type 1 diabetes mellitus without complication (HCC) Acquired hypothyroidism Pre-operative cardiovascular examination Aortic valve disorder 12/19/2024 11:08 AM EDT [facility] Work Phone: STRESS ECHO DOBUTAMINE STRESS EC HO DOBUTAMINE Cardiology Routine Subaortic membrane Shortness of breath Aortic valve disorder Ordered: 11/06/2021 [facility] Work Phone: Comment on above: Ordered: 11/06/2021 End: 01-20-2021 Testosterone Total & Free Male Testosterone Total & Free Male Lab Routine Chronic fatigue 1 Occurrences starting 01/20/2021 until 01/20/2021 [facility] Comment on above: 1 Occurrences starting 01/20/2021 until 01/20/2021 Testosterone Total & Free Male Testosterone Total & Free Male Lab Routine Chronic fatigue 01/20/2021 11:36 PM EDT [facility] End: 01-20-2021 Thyrotropin [Units/volume] in Serum or Plasma TSH Lab Routine Acquired hypothyroidism 1 Occurrences starting 01/20/2021 until 01/20/2021 [facility] Comment on above: 1 Occurrences starting 01/20/2021 until 01/20/2021 Thyrotropin [Units/volume] in Serum or Plasma TSH Lab Routine Acquired hypothyroidism 01/20/2021 11:36 PM EDT [facility] End: 01-20-2021 Thyroxine (T4) free [Mass/volume] in Serum or Plasma T4, Free Lab Routine Acquired hypothyroidism 1 Occurrences starting 01/20/2021 until 01/20/2021 [facility] Comment on above: 1 Occurrences starting 01/20/2021 until 01/20/2021 Thyroxine (T4) free [Mass/volume] in Serum or Plasma T4, Free Lab Routine Acquired hypothyroidism 01/20/2021 11:36 PM EDT [facility] End: 11-27-2020 Urine culture and sensitivity Urine culture and sensitivity Microbiology Routine Acute cystitis with hematuria 1 Occurrences starting 11/27/2020 until 11/27/2020 [facility] Comment on above: 1 Occurrences starting 11/27/2020 until 11/27/2020 Urine culture and sensitivity [facility] End: 12-01-2020 Urine culture and sensitivity Urine culture and sensitivity Microbiology Routine Acute cystitis with hematuria 1 Occurrences starting 12/01/2020 until 12/01/2020 [facility] Comment on above: 1 Occurrences starting 12/01/2020 until 12/01/2020 End: 12-18-2020 Urine culture and sensitivity Urine culture and sensitivity Microbiology Routine Dysuria 1 Occurrences starting 12/18/2020 until 12/18/2020 [facility] Comment on above: 1 Occurrences starting 12/18/2020 until 12/18/2020 End: 01-30-2026 XR Chest PA and Lateral XR CHEST 2V FRONTAL/LAT Radiology Routine Surgery follow-up 1 Occurrences starting 12/31/2024 until 01/30/2026 [facility] Comment on above: 1 Occurrences starting 12/31/2024 until 01/30/2026 End: 02-23-2026 XR Chest PA and Lateral XR CHEST 2V FRONTAL/LAT Radiology Routine Pleural effusion on right 1 Occurrences starting 01/24/2025 until 02/23/2026 [facility] Work Phone: Comment on above: 1 Occurrences starting 01/24/2025 until 02/23/2026 End: 11-06-2020 XR Hip - right Views XR Hip Right 2 Views Imaging Routine Right hip pain 1 Occurrences starting 11/06/2020 until 11/06/2020 [facility] Comment on above: 1 Occurrences starting 11/06/2020 until 11/06/2020 XR Hip - right Views XR Hip Righ t 2 Views Imaging Routine Right hip pain 11/06/2020 3:19 PM EDT [facility] End: 02-14-2026 XR Shoulder - right 3 Views XR SHOULDER GENERAL 3V OR MORE AP/TRUE AP/OTHER RIGHT Radiology Routine Adhesive capsulitis of right shoulder 1 Occurrences starting 01/16/2025 until 02/14/2026 [facility] Work Phone: Comment on above: 1 Occurrences starting 01/16/2025 until 02/14/2026 [facility] Immunizations Immunization Date Immunization Notes Care Provider Fa cristian 04-16-2024 influenza, injectabl e, quadrivalent, contains preservative; Translations: [Flucelvax PF Prefilled Syringe ] ROSCOE UMANZOR MD [facility] 04-16-2024 influenza virus vaccine, unspecified formulation Delfina Chaney PA-C Work Phone: [facility] 05-20-2023 Influenza, injectabl e, Madin Anni Canine Kidney, preservative free, quadrivalent EDWARD ERNA Work Phone: [facility] 05-20-2023 influenza virus vaccine, unspecified formulation Sruthi Ambrosio COVER OPERATOR.AMBULANCE ATTENDANT Work Phone: [facility] 07-06-2022 influenza, injectabl e, quadrivalent, preservative free Sruthi Ambrosio COVER OPERATOR.AMBULANCE ATTENDANT Work Phone: [facility] 07-06-2022 influenza virus vaccine, unspecified formulation Luz Maria Perez MD Work Phone: [facility] 04-30-2021 influenza virus vaccine, unspecified formulation Aniya Oviedo COVER OPERATOR - AMBULANCE ATTENDANT Work Phone: [facility] 04-30-2021 influenza, injectabl e, quadrivalent, preservative free EDWARD ERNA Work Phone: [facility] 04-30-2021 influenza, seasonal, injectable Giovanni Ellis AMBULANCE ATTENDANT Work Phone: [facility] 12-22-2020 HEMOGLOBIN A1C Kaela MALDONADOC Work Phone: [facility] 11-05-2020 Moderna Covid-19 Vaccine Giovanni Ellis AMBULANCE ATTENDANT Work Phone: [facility] Comment on above: Result Comment: 2023: [id number] 10-09-2020 Moderna Covid-19 Vaccine Areli Rajput APRN MANAGER LOCAL Work Phone: [facility] Comment on above: Result Comment: 2023: [id number] 09-25-2020 HEMOGLOBIN A1C Areli ELIAS MANAGER LOCAL Work Phone: [facility] 04-25-2020 influenza nasal, unspecified formulation Sruthi Daily SNIDERAMBULANCE ATTENDANT Work Phone: [facility] 04-25-2020 Influenza, injectabl e, Madin [place] Canine Kidney, preservative free, quadrivalent Abhinav Garrett MD Work Phone: [facility] 04-25-2020 influenza, seasonal, injectable Giovanni Ellis AMBULANCE ATTENDANT Work Phone: [facility] 04-25-2020 influenza virus vaccine, unspecified formulation Kaela Fatima PA-C Work Phone: [facility] 06-18-2019 influenza virus vaccine, unspecified formulation ARLENE BARNETT DO [facility] Comment on above: Result Comment: 2023: VIS DATE: 02/22/2019 06-18-2019 influenza, injectabl e, quadrivalent, preservative free [facility] 06-18-2019 influenza, seasonal, injectable Gioavnni Ellis AMBULANCE ATTENDANT Work Phone: [facility] 04-04-2019 pneumococcal conjuga te vaccine, 13 valent [place] 04-04-2019 tetanus toxoid, redu alia diphtheria toxoid, and acellular pertussis vaccine, adsorbed [place] 05-26-2015 influenza virus vaccine, unspecified formulation ARLENE BARNETT DO [facility] 05-26-2015 influenza, seasonal, injectable Giovanni Ellis AMBULANCE ATTENDANT Work Phone: [facility] 05-26-2015 influenza, seasonal, injectable, preservative free Abhinav Garrett MD Work Phone: [facility] 05-26-2015 Seasonal, quadrivale nt, recombinant, injectable influenza vaccine, preservative free ROSCOE UMANZOR Work Phone: [facility] 06-11-2013 influenza nasal, unspecified formulation Abhinav Garrett MD Work Phone: [facility] 06-11-2013 Influenza Vaccine, unspecified formulation [facility] , [place] 06-11-2013 influenza, seasonal, injectable Abhinav Garrett MD Work Phone: [facility] 03-26-2013 pneumococcal polysaccharide vaccine, 23 valent [facility], [place] 03-26-2013 tetanus toxoid, redu alia diphtheria toxoid, and acellular pertussis vaccine, adsorbed [facility], [place] 05-31-2011 hepatitis B vaccine, adult dosage Giovanni Ellis AMBULANCE ATTENDANT Work Phone: [facility] 05-31-2011 influenza, injectabl e, quadrivalent, preservative free EDWARD ERNA Work Phone: [facility] 05-31-2011 influenza, seasonal, injectable Giovanni Ellis AMBULANCE ATTENDANT Work Phone: [facility] 05-31-2011 hepatitis B vaccine, unspecified formulation Abhinav Garrett MD Work Phone: [facility] 05-31-2011 influenza virus vaccine, unspecified formulation Areli Rajput APRN MANAGER LOCAL Work Phone: [facility] 05-23-2007 influenza virus vaccine, whole virus Giovanni Ellis AMBULANCE ATTENDANT Work Phone: [facility] 05-23-2007 influenza, injectabl e, quadrivalent, preservative free EDWARD ERNA Work Phone: [facility] 06-08-2006 influenza virus vaccine, whole virus Giovanni Ellis AMBULANCE ATTENDANT Work Phone: [facility] 06-08-2006 influenza, injectabl e, quadrivalent, preservative free EDWARD ERNA Work Phone: [facility] 01-15-1992 measles, mumps and rubella virus vaccine Giovanni Sanchezins AMBULANCE ATTENDANT Work Phone: [facility] 01-15-1992 measles/mumps/rubell a virus vaccine ARLENE BARNETT DO [facility] Payers Date Payer Category Payer Self-pay 2024 Unknown [id number] 2022 Medicaid [id number] 2022 Medicaid HMO [id number] 2021 Medicaid [id number]. [id number] 2021 Private Health Insurance [facility] PLAN [id number] 2021-Present [phone] [address] [place] [address] [id number]. [id number] 2020 Private Health Insurance [id number]. [id number] 2020 Medicaid [facility] [id number] 2020-Present [phone] [address] [place] [address] Medicaid [id number]. [id number] 2018 Unknown [facility] [employer] xxxxxxxxxxx 2018-Present [phone] [address] [place] [address] xxxxxxxxxxx [id number]. 7.3.152047.315 2018 Unknown [id number] 1979 Unknown [id number] 2.16.840.1.031931.3.579.2. 204 1979 Unknown [id number] 2.16.840.1.109732.3.579.2. 204 1979 Unknown [id number] 2.16.840.1.125894.3.579.2. 356 1979 Unknown [id number] 2.16.840.1.891375.3.579.2. 177 1979 Unknown [id number] 2.16.840.1.281291.3.579.2. 647 1979 Unknown [id number] 2.16.840.1.380692.3.579.2. 668 1979 Unknown [id number] 2.16.840.1.976856.3.579.2. 668 1979 Unknown [id number] 2.16.840.1.535382.3.579.2. 668 1979 Unknown [id number] 2.16.840.1.752835.3.579.2. 668 1979 Unknown [id number] 2.840.1.047672.3.579.2. 668 1979 Unknown [id number] 2.16.840.1.152687.3.579.2. 627 1979 Unknown [id number] 2.16.840.1.091604.3.579.2. 627 1979 Unknown [id number] 2.16.840.1.772325.3.579.2. 627 1979 Unknown [id number] 2.840.1.200134.3.579.2. 627 1979 Unknown [id number] 2.16.840.1.374997.3.579.2. 627 1979 Unknown [id number] 2.16.840.1.315847.3.579.2. 627 1979 Unknown [id number] 2.16.840.1.899318.3.579.2. 627 1979 Unknown [id number] 2.16.840.1.495915.3.579.2. 627 1979 Unknown [id number] 2.16.840.1.758540.3.579.2. 627 1979 Unknown [id number] 2.16.840.1.918791.3.579.2. 627 1979 Unknown [id number] 2.16.840.1.465881.3.579.2. 627 1979 Unknown [id number] 2.16.840.1.579717.3.579.2. 627 1979 Unknown [id number] 2.16.840.1.800611.3.579.2. 627 1979 Unknown [id number] 2.16.840.1.796622.3.579.2. 627 Medicaid [facility] MEDICAID [id number] Private Health Insurance Unknown [id number] 2.16840.1.403459.3.579.2. 462 Unknown [id number] 2.16840.1.155102.3.579.2. 462 Unknown [id number] 2.16.840.1.866617.3.579.2. 462 Unknown [id number] 2.16.840.1.141308.3.579.2. 462 Unknown [id number] 2.16840.1.426087.3.579.2. 462 Unknown [id number] 2.16840.1.983706.3.579.2. 462 Unknown [id number] 2.16840.1.539773.3.579.2. 462 Unknown [id number] 2.16840.1.266339.3.579.2. 462 Social History Date Type Detail Facility Start: 05-08-2019 End: 03-20-2023 Tobacco smoking status MEIS Current every day smoker [place], [place] Start: 11-08-1996 End: 11-08-2021 History of tobacco use Cigarette Smoker [place], [place] Start: 05-08-2019 End: 11-22-2024 Cigarettes smoked current (pack per day) - Reported [facility] Start: 05-08-2019 End: 11-22-2024 Alcohol intake No [facility] Start: 1980 [facility] [place] [place] Start: 04-04-2019 End: 06-18-2019 Alcohol intake Current non-drinker of alcohol (finding) [place], [place] Start: 10-24-2020 End: 01-10-2025 Tobacco smoking status MEIS Former smoker [facility] Start: 11-08-1996 End: 11-08-2021 History of tobacco use [facility] Start: 10-24-2020 End: 12-11-2020 Tobacco use and exposure Former user [facility] History of tobacco use Snuff User [facility] Start: 10-06-2020 End: 08-25-2022 History SDOH Alcohol Frequency 1 [facility] Start: 10-06-2020 History SDOH Social Connections Phone 5 [facility] Start: 10-06-2020 History SDOH Social Connections Buddhist 3 [facility] Start: 10-06-2020 End: 04-30-2021 History SDOH Social Connections Membership 2 [facility] Start: 10-06-2020 History SDOH Social Connections Living 7 [facility] Start: 10-10-2021 End: 08-25-2022 Exposure to SARS-CoV-2 (event) Not sure [facility] Work Phone: Start: 01-19-2021 End: 03-07-2025 Alcohol intake Ex-drinker (finding) [facility] Start: 04-30-2021 History SDOH Financial 4 [facility] Start: 1980 Sex Assigned At Male A [facility] Start: 08-24-2021 End: 01-10-2025 Tobacco use and exposure Smokeless tobacco non-user [facility] [employer] Phone: Start: 12-31-2021 End: 02-17-2022 Tobacco Comment nicotine lozenges daily [facility] Start: 08-25-2022 History SDOH Alcohol Std Drinks 0 [facility] [employer] Start: 12-02-2022 Education 21 [facility] Start: 06-11-2012 Adult Depression Screening Assessment 0 [facility] Start: 03-20-2023 Tobacco smoking stat us MEIS Unknown if ever smoked [facility] How often to you hav e a drink containing alcohol? Never [facility] [employer] Start: 09-19-2023 End: 04-06-2024 Tobacco smoking status Heavy tobacco smoker (finding) [facility] In the past 12 month s, was there a time when you were not able to pay the mortgage or rent on time? Yes [facility] Start: 02-13-2024 Gender identity Identifies as male gender (finding) [facility] Start: 06-05-2019 End: 02-08-2022 Sex Male (finding) [facility] Sexual Orientation [facility] Start: 08-24-2024 Tobacco use and exposure User of smokeless tobacco [facility] Start: 08-24-2024 Tobacco Comment Vaping [facility] Start: 02-21-2025 Tobacco smoking status Never s moked any substance (finding) [facility] Work Phone: Medical Equipment Procedure Code Equipment Code Equipment Origin al Text Equipment Identifier Dates [id number] Start: 04-04-2019 End: 03-04-2023 Comment on above: [...] hyper/hypoglycemia As directed AC a nd HS. [id number] Start: 06-18-2019 Use as directed 5x day. [id number] Start: 06-18-2019 E10.9 Use to libertad t glucose 5 times a day One Touch Verio [id number] Start: 03-31-2021 E10.9 One Touch Verio Use to test glucose 4 times a day [id number] Start: 01-21-2021 Test 5 times a d ay & as needed for symptoms of irregular blood glucose. [id number] Start: 08-05-2020 As directed AC a nd HS. [id number] Start: 02-21-2020 Use as directed 5x day. [id number] Start: 02-21-2020 Basin Thk1.65mm P tfe 4x.5in Cardiovascular Sterile - [id number] Start: 01-26-2022 Ring Hernandez Mc3 28mm Titanium Silicone Rubber Polyester Annuloplasty 1 - [id number] Start: 01-26-2022 Patch Thk.5mm Frederic vine Pericardial [id number] Cardiovascular Resilience Durable - [id number] Start: 01-26-2022 Valve Hernandez Inspiris Resilia 25mm Pericardial Aortic Bioprosthesis - [id number] Start: 01-26-2022 Test 5 times a d ay & as needed for symptoms of irregular blood glucose. [id number] Start: 08-05-2020 Test 4 times per day. DX:E10.9 [id number] Start: 05-24-2022 Use for checking blood sugars up to 7 times daily, AC/HS plus as needed for symptoms for hyper/hypoglycemia [id number] Start: 07-04-2023 End: 01-04-2024 USE WITH INSULIN PENS ONCE DAILY diagnosis E10.65 PATIENT IS OFF OF INSULIN PUMP AND NOW USING BASAL/BOLUS INSULIN AGAIN [id number] Start: 09-30-2022 End: 12-20-2024 Inject 1 Each subcutaneously three times daily. Use 3 times daily with Humalog injections. Diagnosis E10.65 PATIENT IS OFF OF INSULIN PUMP AND NOW USING BASAL/BOLUS INSULIN AGAIN [id number] Start: 01-07-2023 End: 12-20-2024 Use for checking blood sugars up to 7 times daily, AC/HS plus as needed for symptoms for hyper/hypoglycemia [id number] Start: 01-04-2024 End: 01-23-2024 TEST UP TO 7 MICHAEL ES DAILY BEFORE MEALS AND AT BEDTIME PLUS NEEDED FOR SYMPTOMS [id number] Start: 01-23-2024 End: 12-20-2024 See Instructions , [...] days, # 3 EA, 3 Refill(s), Pharmacy: [id number], 193, cm, 04/16/24 15:08:00 EDT, Height, 106.8, kg, 04/16/24 15:08:00 EDT, Dosing Weight Start: 04-16-2024 See Instructions , Use one test strip to check blood sugar _7__ times daily as directed. Dispense insurance preferred test strips. 1 box of 300 per 90 days, # 3 EA, 3 Refill(s), Pharmacy: [id number], 193, cm, 04/16/24 15:08:00 EDT, Height, 106.8, kg, 04/16/24 15:08:00 EDT, Dosing Weight Start: 04-16-2024 Basin Thk1.65mm P tfe 4x.5in Cardiovascular Sterile - [id number] Start: 12-25-2024 Valve Masters Hemashield 23mm 18.6mm 24mm Collagen 12cm Aortic Low Porosity - [id number] Start: 12-25-2024 Goals Date Patient Goal Desired Activity /State Personal health goal Personal health goal Functional Status Date Assessment Result Facility 03-15-2025 Patient Health Questionnaire 2 item (PHQ-2) [Reported] [facility] 03-15-2025 PHQ-9 quick depressi on assessment panel [Reported.PHQ] [facility] 02-21-2025 Functional Status without [facility] [employer] Work Phone: 02-21-2025 dependent [employer] Work Phone: 12-31-2024 Are you deaf, or do you have serious difficulty hearing No 12/31/2024 5:43 PM EDT Flakita Newman RN No [facility] 12-31-2024 Are you blind, or do you have serious difficulty seeing, even when wearing glasses No 12/31/2024 5:43 PM EDT Flakita Newman, ROXANA No [facility] 12-31-2024 Do you have serious difficulty walking or climbing stairs No 12/31/2024 5:43 PM EDT Flakita Newman, ROXANA No [facility] 12-31-2024 Do you have difficul ty dressing or bathing No 12/31/2024 5:43 PM EDT Flakita Newman RN No [facility] 12-31-2024 Because of a physica l, mental, or emotional condition, do you have difficulty doing errands alone such as visiting a physician's office or shopping No 12/31/2024 5:43 PM EDT Flakita Newman RN No [facility] 12-24-2024 Are you deaf, or do you have serious difficulty hearing No 12/24/2024 12:05 PM EDNiki Thompson RN No [facility] 12-24-2024 Are you blind, or do you have serious difficulty seeing, even when wearing glasses No 12/24/2024 12:05 PM Niki Ibanez RN No [facility] 12-24-2024 Do you have serious difficulty walking or climbing stairs No 12/24/2024 12:05 PM Niki Ibanez RN No [facility] 12-24-2024 Do you have difficul ty dressing or bathing No 12/24/2024 12:05 PM Niki Ibanez RN No [facility] 12-24-2024 Because of a physica l, mental, or emotional condition, do you have difficulty doing errands alone such as visiting a physician's office or shopping No 12/24/2024 12:05 PM Niki Ibanez RN No [facility] 04-11-2024 Functional Status Independent [facility] 04-06-2024 Functional Status Ambulation in [facility] 03-29-2024 Functional Status Independent [facility] 03-29-2024 Functional Status N/A [facility] 02-10-2024 Are you deaf, or do you have serious difficulty hearing No 02/10/2024 3:40 PM EDT Shakira Bruce RN No [facility] 02-10-2024 Are you blind, or do you have serious difficulty seeing, even when wearing glasses No 02/10/2024 3:40 PM EDT Shakira Bruce RN No [facility] 02-10-2024 Do you have serious difficulty walking or climbing stairs No 02/10/2024 3:40 PM EDT Shakira Bruce RN No [facility] 02-10-2024 Do you have difficul ty dressing or bathing No 02/10/2024 3:40 PM EDT Shakira Bruce RN No [facility] 02-10-2024 Because of a physica l, mental, or emotional condition, do you have difficulty doing errands alone such as visiting a physician's office or shopping No 02/10/2024 3:40 PM EDT Shakiar Bruce RN No [facility] 02-01-2024 Functional Status Independent [facility] 02-01-2024 Functional Status Repositions self [facility] Mental Status Date Assessment Result Facility 12-31-2024 Because of a physica l, mental, or emotional condition, do you have serious difficulty concentrating, remembering, or making decisions No 12/31/2024 5:43 PM EDT Flakita Newman, ROXANA No [facility] 12-24-2024 Because of a physica l, mental, or emotional condition, do you have serious difficulty concentrating, remembering, or making decisions No 12/24/2024 12:05 PM EDT Niki Bailon, ROXANA No [facility] 04-11-2024 Mental Status Orientation Oriented x 4 [facility] 04-06-2024 Mental Status Oriented x 4 [facility] 03-29-2024 Mental Status Orientation Oriented x 4 [facility] 03-29-2024 Mental Status [facility] 02-10-2024 Because of a physica l, mental, or emotional condition, do you have serious difficulty concentrating, remembering, or making decisions No 02/10/2024 3:40 PM EDT Shakira Bruce RN No [facility] 02-01-2024 Mental Status Orientation Oriented x 4 [facility] 02-01-2024 Mental Status [facility] Clinical Notes 08-27-2015 to 03-26-2025 Telephone Encounter - Colleen Hoffman LPN - 03/26/2025 4:46 PM EDTTelephone Encounter - Colleen Hoffman LPN - 03/26/2025 4:46 PM Alyx Cherry RN - 03/26/2025 1:12 PM EDT Note Date & Type Note Facility 03-26-2025 Telephone encounter Note Patient [employer] message requesting the following refill. Requested Prescriptions [...] refill for Trazodone ? Patient Phone numbers: [phone] (home) Request is for script(s) to be escript to [facility] pharmacy. Colleen Hoffman LPN [facility] 03-26-2025 Miscellaneous Notes Patient [employer] message requesting the following refill. Requested Prescriptions [...] refill for Trazodone ? Patient Phone numbers: [phone] (home) Request is for script(s) to be escript to [facility] pharmacy. Colleen Hoffman LPN documented in this encounter [facility] 03-26-2025 Note [facility] 03-26-2025 History of Present illness Narrative patient had inr completed at [facility] patients inr is 2.0 (patients inr range [...] with note below. documented in this encounter [facility] 03-26-2025 Note HNO ID: [id number] Author: ANIA CABALLERO RPh Service: ? Author Type: Pharmacist Type: Progress Notes Filed: 03/26/2025 13:26 Note Text: I have read and agree with note below. [facility] 03-25-2025 Note [facility] 03-25-2025 History of Present illness Narrative Images from the original note were not included. [facility] New Patient Virtual Evaluation I have communicated my name and active licensure. The patient's identity and physical location were verified at the time of this visit. Either the patient or their legal community health program representative has been informed of the risks and benefits of -- and alternatives to -- treatment through a remote evaluation and consents to proceed with the evaluation remotely. Consulting Provider: No referring provider defined for this encounter. I received consent from the patient to perform the visit as a virtual encounter. Individuals who were included in, or assisted with the encounter were: Luisito Zhong Marysol Cardoza MD Chief Complaint/Issues: Luisito Zhong is a 44 year old male seen in the [facility] for: Concern for Diabetic Polyneuropathy HPI: [...] a treatment program for cocaine addiction around 9540-3556. He notes that Cymbalta seems to help [...] for further neuropathy evaluation. 2. Substance abuse ([facility]) (F19.10) - History of cocaine addiction; transitioned from gabapentin to Cymbalta during treatment in 1950-3618. 3. History of mechanical aortic valve replacement (Z95.2) 4. alf (current) use of anticoagulants (Z79.01) - On [...] 1 diabetes mellitus with diabetic polyneuropathy (HCC) E10.42 2. Substance abuse ([facility]) F19.10 3. History of mechanical aortic valve replacement Z95.2 4. Hypercholesterolemia E78.00 5. Vitamin D deficiency E55.9 6. 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 Z79.01 No follow-ups [...] Testing Crack Cocaine Use Postoperative Pulmonary Edema ([facility]) S/P Avr (Aortic Valve Replacement) Coagulopathy ([facility]) Stress Hyperglycemia Anticoagulation Management Encounter Type 1 Diabetes Mellitus With Hyperglycemia ([facility]) Insulin Pump in Place Obesity, Class I, Bmi 30-34.9 Retirement Current Use of Anticoagulant Therapy Chronic Anemia Overweight With Body Mass Index (Bmi) of 29 to 29.9 in Adult History of Mechanical Aortic Valve Replacement Retirement (Current) Use of Anticoagulants Herniation of Intervertebral [...] clean since 06/21/2018. Went to treatment at [facility] for 9 months Mitral regurgitation Murmur Nonrheumatic [...] Monocytes % 01/16/2025 10.1 % Final Abs Kidder 01/16/2025 0.67 <0.87 k/uL Final Eosinophils % [...] (H) 74 - 99 mg/dL Final The [place] Diabetes Association (ADA) provides guidance for cutoff [...] Standards of Medical Care in Diabetes 2016, [place] Diabetes Association. Diabetes Care. 2016.39(Suppl 1). BUN [...] 6.4 (H) 4.3 - 5.6 % Final [place] Diabetes Association guidelines indicate that patients with HgbA1c in the range 5.7-6.4% are at increased risk for development of diabetes, and intervention by lifestyle modification may be beneficial. HgbA1c greater or equal to 6.5% is considered diagnostic of diabetes. Estimated Average Glucose 01/16/2025 137 mg/dL Final eAG: (Estimated average glucose) is a calculated value from HgbA1c and is community health program representative of the average blood glucose level [...] Desk Reference: National Heart, Lung, and Blood [place]. National Institutes of Health. 2001: NIH Publication [...] with VKA drugs, such as warfarin, the [place] College of Chest Physicians 2012 Guideline recommends [...] Chest 2012, 141:7S-47S Cinda RA, et al. [facility] 2017, 70: 252-289 Office Visit on 01/10/2025 [...] (Bazett) 01/07/2025 469 ms Final Calculated P [place] 01/07/2025 81 degrees Final Calculated R [place] 01/07/2025 81 degrees Final Calculated T [place] 01/07/2025 21 degrees Final Appointment on 01/07/2025 [...] (H) 74 - 99 mg/dL Final The [place] Diabetes Association (ADA) provides guidance for cutoff [...] Standards of Medical Care in Diabetes 2016, [place] Diabetes Association. Diabetes Care. 2016.39(Suppl 1). BUN [...] with VKA drugs, such as warfarin, the [place] College of Chest Physicians 2012 Guideline recommends [...] GH, et al. Chest 2012, 141:7S-47S Cinda GRADY, et al. [facility] 2017, 70: 252-289 No results displayed because [...] which included preparing to see the patient, [id number] patient care, completing clinical documentation, obtaining and/or [...] Types: Crack Cocaine documented in this encounter [facility] 03-21-2025 Discharge summary Note Date/Time March 21, 2025 3:59pm [facility] [address] [place] [address] / REHABILITATION SERVICES DISCHARGE SUMMARY MR#: [id number] Acct: [id number] Name: LUISITO ZHONG Rep #: [id number] 23 : 1980 44 From: Kahlil Siegel DPT, OCS, CSCS Referring Dr.: Dr. Freddy Mujica MD Status: REG RCR Insurance: [facility] [employer]UR[employer] Patient Information Patient [...] appropriate by the physician. Thank you! Kahlil Siegel DPT, TRACY, CSCS Balance/Gait/Functional tests Balance/Special Test Scores Oswestry Neck Score: 26 <Electronically signed by Kahlil Siegel DPT, TRACY, CSCS> 03/21/25 1559 CC: Dr. Freddy Mujica MD; ROSCOE UMANZOR ~ EBG Signed [facility] Work Phone: [phone] Discharge summary [facility] [address] [place] [address] / REHABILITATION SERVICES DISCHARGE SUMMARY MR#: [id number] Acct: [id number] Name: LUISITO ZHONG Rep #: [id number] 23 : 1980 44 From: Kahlil Siegel DPT, TRACY, JUDI Referring Dr.: Dr. Freddy Mujica MD Status: REG R Insurance: [facility] [employer]URANCE Patient Information Patient [...] appropriate by the physician. Thank you! Kahlil Siegel, DPT, OCS, CSCS Balance/Gait/Functional tests Balance/Special Test Scores Oswestry Neck Score: 26 03/21/25 1559 CC: Dr. Freddy Mujica MD; ROSCOE UMANZOR ~ EBG Signed [facility]09-10-2025 Telephone encounter Note* Telephone Encounter - Eliza Hopkins - 03/20/2025 8:03 AM EDT Called, left voicemail for patient to contact office to schedule appointment. Left detailed messageinforming patient Robyn does have available appointments today and on 03/21/2025 if interested. Eliza Hopkins [facility]09-10-2025 Telephone encounter Note* Telephone Encounter - Eliza [...] to make you aware. Lisa Garrett MD [facility]09-10-2025 Miscellaneous Notes* Telephone Encounter - Eliza Hopkins [...] to make you aware. Lisa Garrett MD [facility] * Telephone Encounter - Colleen Hoffman LPN - 03/19/2025 2:26 PM EDT Per Robyn: Please reach out to patient regarding mental health concerns from Dr. Garrett to see if he would like to come in for sooner visit to discuss mental health concerns. We will discuss colon cancer screening in setting of chronic anemia at upcoming July [facility] visit. Robyn Taylor APRN.QAMAR I attempted to call patient Papi. No answer. I left a voice mail message for patient to return callto office. Colleen Hoffman LPN March 19, 2025 2:27 PM [facility] Telephone encounter Note * Telephone Encounter - [...] Hoffman LPN March 19, 2025 2:27 PM [facility]09-05-2025 Evaluation note* Diagnosis Onset Date Resolution Status Admit Date Cervical myelopathy with cervical radiculopathy acute March 15, 2025 1:18pm [facility] Work Phone: [phone] Telephone encounter Note* Telephone Encounter - Kacie Jasmine - 03/15/2025 11:31 AM EDT Echo scheduled 04-01-25 2 pm at [id number] Miscellaneous Notes* Telephone Encounter - Kacie Jasmine - 03/15/2025 11:31 AM EDT Echo scheduled 04-01-25 2 pm at [facility] Patient informed documented in [facility] [id number] History of Present illness Narrative* Erin Morris MD - 03/15/2025 8:45 AM EDT [facility] Cardiology Note Assessment and Plan: [...] now in a sober living facility in [place] and this is a stable environment, jennifer-based practice that is helping him to avoid substance abuse. He is optimistic that this will be a residential living situation for him that is safe and helps him to say sober. Taking warfarin, this is followed via the coumadin clinic in [place]. He is following closely with primary care [...] subaortic membrane. He sought surgical opinion at [facility], and ultimately underwent repeat surgical intervention on [...] aortic valve replacement Erin Morris MD Cardiology [facility] [address] [place] [address] p [phone] f [phone] [1] Current Outpatient Medications: Acetaminophen Extra Strength [...] Blood Gluc Sensor (FreeStyle Carlton 2 Sensor) mis, APPLY SENSOR TO BACK OF UPPER ARM,REMOVE AND REPLACE EVERY 14 DAYS, Disp: 3 each, Rfl: 2 Continuous Blood Gluc Transmit (Dexcom G6 transmitter) mis, Change every 90 days, Disp: , Rfl: DULoxetine (Cymbalta) [address] capsule, Take 30 mg by mouth in the morning., Disp: , Rfl: ergocalciferol (Vitamin D2) 1.25 MG (09878 UT) capsule, Take 1.25 mg by mouth [...] (Skin Tac Adhesive Barrier Wipe) [facility], 1 each every 14 (fourteen) days., Disp: [...] Problems Father No Known Problems Mother Other ([address]) Sister MS Heart disease Paternal Grandmother [3] Social History Tobacco Use Smoking status: Every Day Smokeless tobacco: Current Tobacco comments: Vaping Substance Use Topics Alcohol use: Not Currently Drug use: Not Currently Types: Cocaine Comment: few slips ups recently caffeine use2 cups of coffee a day documented in this [facility]09-02-2025 Telephone encounter Note* Telephone Encounter - Alyx Hernandez RN - 03/12/2025 12:28 PM EDT LEFT MESSAGE FOR PATIENT TO CALL OFFICE patient needs scheduled for an INR with coumadin clinic [facility]09-02-2025 Miscellaneous Notes* Telephone Encounter - Alyx Hernandez RN - 03/12/2025 12:28 PM EDT LEFT MESSAGE FOR PATIENT TO CALL OFFICE patient needs scheduled for an INR with coumadin clinic * Telephone Encounter - Jaelyn Black, [facility] - 03/08/2025 5:21 PM EDT [facility] Ambulatory Pharmacy Anticoagulation Clinic Anticoagulation Episode Summary Anticoagulation Care Providers Provider Role Specialty Phone number Renay Garrett MD Referring Internal Medicine/Pediatrics [phone] Luisito Zhong is a 44 year old [...] skin Indication for Warfarin: Anticoagulation management encounter alf current use of anticoagulant therapy History of mechanical aortic valve replacement alf (current) use of anticoagulants Anticoagulation Episode Summary Current INR goal: 2.0-3.0 Assessment: INR result of 2.0 is therapeutic Plan: Current Warfarin Dosing As of 03/08/2025 Full warfarin instructions: 7.5 mg every Wed; 5 mg all other days Sent [employer] message Advised patient to continue current weekly dose as noted above Next point of care INR check scheduled on 03/22/2025 Message sent to [facility] team to schedule appointment Patient advised to call the PAC with any medication changes, bleeding/bruising concerns, recent changes in vitamin k consumption, if any procedures are coming up, if they have been ill or in the hospital, and if they have missed any doses of warfarin. Jaelyn Black RPh Clinical Pharmacist, Pharmacy Anticoagulation Clinic Pharmacy Antico[facility] Clinic Pager: [phone]. documented in this encounterK[facility]08-29-2025 Telephone encounter Note * Telephone Encounter - [...] hypercoagulable conditions) or an older-generation mechanical (e.g., [id number]). INR goal of 2.0-3.0 for patient is appropriate given no other reported risk factors. Will confirm goal INR with cardiology and referring. Jaelyn Black PharmD [facility]08-29-2025 Miscellaneous Notes* Telephone Encounter - Jaelyn Black RPh - 03/08/2025 5:28 PM EDT Per [facility]: Table 24. Target INR by Indication Antiphospholipid [...] hypercoagulable conditions) or an older-generation mechanical (e.g., [id number]). INR goal of 2.0-3.0 for patient is [...] provider and continuing INR testing at the [place] [facility]. Papi is agreeable to all. The February 2026 appointment has been cancelled. Colleen Hoffman LPN March 08, 2025 10:55 AM * Telephone Encounter - Robyn Taylor APRN.CNP - 03/07/2025 7:59 PM EDT [place]: Thank you for your message. The office number is [phone] option 4 to reach receptionist airline lounge. Colleen: Please attempt to notify patient of above information since [place] was unable to reach him. If unable to reach patient, please send letter. He may cancel his February 2026 well visit scheduled with Dr. Renay Garrett in [place] if he would like me to remain [...] he needed to have a doctor in [place] to handle his Coumadin/anticoagulation. Pt has been coming to the Coumadin Clinic here in [place] and seeing nurse Alyx. Talked with Alyx and she states that pt's PCP had referred pt to the [facility] pharmacy and that is who is managing pt's Coumadin/anticoagulation in coordination with Alyx. Pt does not need any other provider to monitor anticoagulation/Coumadin. Pt's PCP will remain Robyn Taylor and he can continue to come and have his INRs done with Alyx at the [place] [facility] and have his anticoagulation/Coumadin monitored by the [facility] pharmacy. Pt does NOT need to establish with any other providers here in [place] and does not need to see Dr. Renay Garrett anymore. LM on pt's cell that as we discussed last evening, bautista keep his current PCP Robyn Taylor. Attempted to contact her office several times throughout the day but never got to speak with anyone-no matter which number we hit, [facility] Will route this msg to that office to hopefully clarify that pt does not need to establish with anyone else at this time or see Dr. Garrett anymore. * Telephone Encounter - Colleen Hoffman LPN - 03/07/2025 11:14 AM EDT I called [facility] and spoke with triage nurse Jens to [...] He also had an appointment with the [place] [facility] today at 12:00 pm Colleen Hoffman LPN March 07, 2025 11:15 AM documented in this encounterK[facility]08-29-2025 Telephone encounter Note * Telephone Encounter - Jaelyn Black [facility] - 03/08/2025 5:21 PM EDT [facility] Ambulatory Pharmacy Anticoagulation Clinic Anticoagulation Episode Summary Anticoagulation Care Providers Provider Role Specialty Phone number Renay Garrett MD Referring Internal Medicine/Pediatrics [phone] Luisito Zhong is a 44 year old [...] skin Indication for Warfarin: Anticoagulation management encounter alf current use of anticoagulant therapy History of mechanical aortic valve replacement alf (current) use of anticoagulants Anticoagulation Episode Summary Current INR goal: 2.0-3.0 Assessment: INR result of 2.0 is therapeutic Plan: Current Warfarin Dosing As of 03/08/2025 Full warfarin instructions: 7.5 mg every Wed; 5 mg all other days Sent [employer] message Advised patient to continue current weekly dose as noted above Next point of care INR check scheduled on 03/22/2025 Message sent to [place] team to schedule appointment Patient advised to call the PAC with any medication changes, bleeding/bruising concerns, recent changes in vitamin k consumption, if any procedures are coming up, if they have been ill or in the hospital, and if they have missed any doses of warfarin. Jaelyn Black RPh Clinical Pharmacist, Pharmacy Anticoagulation Clinic Pharmacy Anticoagulation Clinic Pager: [phone]. [facility]08-29-2025 Telephone encounter Note* Telephone Encounter - Robyn Taylor APRN.CNP - 03/08/2025 12:32 PM EDT Thank you! Robyn Taylor APRN.CNP [facility]08-29-2025 Telephone encounter Note* Telephone Encounter - Colleen Hoffman LPN - 03/08/2025 10:53 AM EDT I spoke with patient Papi today and advised him of all information regarding keeping Robyn Taylor APRN.CNP as his primary care provider and continuing INR testing at the [place] [facility]. Papi is agreeable to all. The February 2026 appointment has been cancelled. Colleen Hoffman LPN March 08, 2025 10:55 AM [facility]08-28-2025 Telephone encounter Note* Telephone Encounter - Robyn Taylor APRN.CNP - 03/07/2025 7:59 PM EDT [place]: Thank you for your message. The office number is [phone] option 4 to reach receptionist airline lounge. Colleen: Please attempt to notify patient of above information since [place] was unable to reach him. If unable to reach patient, please send letter. He may cancel his February 2026 well visit scheduled with Dr. Renay Garrett in [place] if he would like me to remain his PCP. Thank you. Robyn Taylor APRN.CNP [facility]08-28-2025 Telephone encounter Note* Telephone Encounter - [place] Lara RN - 03/07/2025 4:31 PM EDT Much confusion with this patient. Attempted to reach pt again today with no answer. When this nursespoke with pt last evening, he wanted to keep Robyn Taylor as his PCP. Someone somewhere told himthat he needed to have a doctor in [place] to handle his Coumadin/anticoagulation. Pt has been coming to the [facility] Clinic here in [place] and seeing nurse Alyx. Talked with Alyx and she states that pt's PCP had referred pt to the [facility] pharmacy and that is who is managing pt's Coumadin/anticoagulation in coordination with Alyx. Pt does not need any other provider to monitor anticoagulation/Coumadin. Pt's PCP will remain Robyn Taylor and he can continue to come and have his INRs done with Alyx at the [place] [facility] and have his anticoagulation/Coumadin monitored by the [facility] pharmacy. Pt does NOT need to establish with any other providers here in [place] and does not need to see Dr. Renay Garrett anymore. LM on pt's cell that as we discussed last evening, bautista keep his current PCP Robyn Taylor. Attempted to contact her office several times throughout the day but never got to speak with anyone-no matter which number we hit, all of them went to [facility]. Will route this msg to that office to hopefully clarify that pt does not need to establish with anyone else at this time or see Dr. Garrett anymore. [facility]08-28-2025 Miscellaneous Notes* Telephone Encounter - Carolina Lara RN - 03/07/2025 4:31 PM EDT Much confusion with this patient. Attempted to reach pt again today with no answer. When this nursespoke with pt last evening, he wanted to keep Robyn Taylor as his PCP. Someone somewhere told himthat he needed to have a doctor in [place] to handle his Coumadin/anticoagulation. Pt has been coming to the [facility] here in [place] and seeing nurse Alyx. Talked with Alyx and she states that pt's PCP had referred pt to the [facility] pharmacy and that is who is managing pt's Coumadin/anticoagulation in coordination with Alyx. Pt does not need any other provider to monitor anticoagulation/Coumadin. Pt's PCP will remain Robyn Taylor and he can continue to come and have his INRs done with Alyx at the [place] [facility] and have his anticoagulation/Coumadin monitored by the [facility] pharmacy. Pt does NOT need to establish with any other providers here in [place] and does not need to see Dr. Renay Garrett anymore. LM on pt's cell that as we discussed last evening, bautista keep his current PCP Robyn Taylor. Attempted to contact her office several times throughout the day but never got to speak with anyone-no matter which number we hit, all of them went to [facility]. Will route this msg to that office to hopefully clarify that pt does not need to establish with anyone else at this time or see Dr. Garrett anymore. * Telephone Encounter - Afshin Schneider RN - 03/07/2025 11:12 AM EDT Verito - nurse- from Viki Taylor Np office at [facility], phoned to report patient's INR 2.0 today on their Coagucheck INR machine. INR goal is 2.0-3.0. Reports Brinda Taylor is referring INR checks back to Dr. Garrett. See provider's ov notes from today. Reports pt reported he missed 2 doses of coumadin last week. Reports no unusual bleeding or bruising. documented in this encounterKettering [facility]08-28-2025 Telephone encounter Note * Telephone Encounter - Carolina Lara RN - 03/07/2025 4:22 PM EDT Much confusion with this patient. Attempted to reach pt again today with no answer. When this nursespoke with pt last evening, he wanted to keep Robyn Taylor as his PCP. Someone somewhere told himthat he needed to have a doctor in [place] to handle his Coumadin/anticoagulation. Pt has been coming to the [facility] here in [place] and seeing nurse Alyx. Talked with Alyx and she states that pt's PCP had referred pt to the [facility] pharmacy and that is who is managing pt's Coumadin/anticoagulation in coordination with Alyx. Pt does not need any other provider to monitor anticoagulation/Coumadin. Pt's PCP will remain Robyn Taylor and he can continue to come and have his INRs done with Alyx at the [place] [facility] and have his anticoagulation/Coumadin monitored by the [facility] pharmacy. Pt does NOT need to establish with any other providers here in [place] and does not need to see Dr. Renay Garrett anymore. LM on pt's cell that as we discussed last evening, bautista keep his current PCP Robyn Taylor. Attempted to contact her office several times throughout the day but never got to speak with anyone-no matter which number we hit, all of them went to [facility]. Will route this msg to that office to hopefully clarify that pt does not need to establish with anyone else at this time or see Dr. Garrett anymore. [facility]08-28-2025 Telephone encounter Note* Telephone Encounter - Colleen Hoffman LPN - 03/07/2025 11:14 AM EDT I called [facility] and spoke with triage nurse Jesn to give instructions for the INR test [...] He also had an appointment with the [place] [facility] today at 12:00 pm Colleen Hoffman LPN March 07, 2025 11:15 AM [facility]08-28-2025 Telephone encounter Note* Telephone Encounter - Afshin Schneider RN - 03/07/2025 11:12 AM EDT Verito - nurse- from Viki Taylor Np office at [facility], phoned to report patient's INR 2.0 today on their Coagucheck INR machine. INR goal is 2.0-3.0. Reports Brinda Taylor is referring INR checks back to Dr. Garrett. See provider's ov notes from today. Reports pt reported he missed 2 doses of coumadin last week. Reports no unusual bleeding or bruising. [facility]08-28-2025 History of Present illness Narrative* Robyn Taylor APRN.AMBULANCE ATTENDANT - 03/07/2025 9:05 AM EDT This note was created using Mechanology technology with patient consent. Subjective The patient [...] valve on 12/25/[address] Beavers at [facility] related to structural valve degeneration of initial [...] Dr. Beavers; 10 weeks post-op. - General conduit installer is Dr. Morris at [facility]; follow-up appointment scheduled for 03/15. - Current [...] and depression 04/04/2019 Cocaine abuse in remission ([facility]) last used 10/17/2014 Ex-smoker Ex-smoker Started at the age of 15 up to 1 PPD and quit 07/2018 Frozen shoulder 03/12/2014 History of drug abuse ([facility]) 04/04/2019 Cocaine and marijuana. Has been clean since 06/21/2018. 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 Tachycardia 02/05/2025 Tetrahydrocannabinol (THC) use disorder, mild, in sustained remission, in controlled environment, abuse Type 1 diabetes mellitus with diabetic polyneuropathy ([facility]) ACTIVE PROBLEM LIST Impingement Syndrome of Right Shoulder Type 1 Diabetes Mellitus With Diabetic Polyneuropathy ([facility]) Acquired Hypothyroidism Former Smoker Subaortic Membrane ([facility]) Mitral Regurgitation Alcohol Abuse History of Drug Abuse ([facility]) Mixed Anxiety and Depressive Disorder Dyspnea Dyslipidemia Obesity (Bmi 30-39.9) Discharge Planning Issues Atelectasis Post-Op Pain Exertional Dyspnea Tricuspid Regurgitation Aortic Regurgitation Obesity, Class II, Bmi 35-39.9 Hypervolemia Encounter for Support and Coordination of Transition of Care Nicotine use disorder, F17.2 History of Asthma History of Cocaine Use Mixed Hyperlipidemia Hypoglycemia Chronic Right Shoulder Pain Pain in Joint, Shoulder Region Substance Abuse ([facility]) Vitamin D Deficiency Type 1 Diabetes Mellitus Without Complication ([facility]) Homeless Cocaine Abuse ([facility]) Aortic Valve Disorder Class 1 Drug-Induced Obesity With Serious Comorbidity and Body Mass Index (Bmi) of 31.0 to 31.9 in Adult Pre-Op Testing Crack Cocaine Use Postoperative Pulmonary Edema ([facility]) S/P Avr (Aortic Valve Replacement) Coagulopathy ([facility]) Stress Hyperglycemia Anticoagulation Management Encounter Type 1 Diabetes Mellitus With Hyperglycemia ([facility]) Insulin Pump in Place Obesity, Class I, Bmi 30-34.9 Retirement Current Use of Anticoagulant Therapy Chronic Anemia Overweight With Body Mass Index (Bmi) of 29 to 29.9 in Adult History of Mechanical Aortic Valve Replacement Retirement (Current) Use of Anticoagulants Herniation of Intervertebral [...] with appropriate affect. Assessment & Plan 1. alf current use of anticoagulant therapy (Z79.01) 2. [...] monthly INR checks if therapeutic; will notify [place] [facility] and managing provider Dr. Renay Garrett of current INR (visit note forwarded). - Follow-up with cardiology (Dr. Morris) on March 15 to review INR range and consider cardiacrehab for exercise intolerance (visit note forwarded). - Advised to notify conduit installer and seek urgent care if severe swelling, [...] study in arms scheduled for 03/13 at [facility] per synoptic meteorologist,Dr. Desai. - Follow-up with Dr. Marysol Cardoza ([facility] Neuromuscular Specialist) on 03/12 (visit note forwarded). [...] the office or send a message via Keelr with any questions related to this visit. Please Note: The patient consented to the use of Smartdate software for draft documentation of thevisit consistent with [facility] s Notice of Privacy Practices. Portions of this office note have been created using [employer], a speech recognition software program, and may contain errors including punctuation, grammar, spelling, gender, and inappropriate words or phrases that pertain to the system. DATE: March 07, 2025 SIGNATURE: Robyn Taylor APRN.AMBULANCE ATTENDANT [1] Social History Tobacco Use Smoking status: [...] Patient goes to the [facility] in [place] he missed a couple dose of his medication last week Patient is asking if he can get an INR test done today because he cannot make it to the [place] [facility] for a couple of weeks Per Robyn patient does have a standing order for POC INR testing INR done in office today (result 2.0) with instructions per Robyn for patient contact the Coumadin (anticoagulant) Clinic in [place] for dosing instructions No refills needed Colleen Hoffman LPN March 07, 2025 8:31 AM [id number] documented in this encounterKettering Health [facility] Center08-28-2025 NoteHNO ID: [id number] Author: ROBYN TAYLOR APRN.CNP Service: ? Author Type: Nurse Practitioner Type: Progress Notes Filed: 03/07/2025 10:48 Note Text: This note was created using Mechanology technology with patient consent. Subjective The patient [...] valve on 12/25/[address] Beavers at [facility] related to structural valve degeneration of initial [...] Dr. Beavers; 10 weeks post-op. - General conduit installer is Dr. Morris at [facility]; follow-up appointment scheduled for 03/15. - Current [...] clean since 06/21/2018. Went to treatment at [facility] for 9 months Mitral regurgitation Murmur Nonrheumatic [...] Testing Crack Cocaine Use Postoperative Pulmonary Edema ([facility]) S/P Avr (Aortic Valve Replacement) Coagulopathy ([facility]) Stress Hyperglycemia Anticoagulation Management Encounter Type 1 Diabetes Mellitus With Hyperglycemia ([facility]) Insulin Pump in Place Obesity, Class I, Bmi 30-34.9 Retirement Current Use of Anticoagulant Therapy Chronic Anemia Overweight With Body Mass Index (Bmi) of 29 to 29.9 in Adult History of Mechanical Aortic Valve Replacement Retirement (Current) Use of Anticoagulants Herniation of Intervertebral [...] 90 mcg/actuation inhaler Inhal (more content not included)...[facility]08-28-2025 Instructions* Patient Instructions* Robyn Taylor, RIC.[facility] - 03/07/2025 8:59 AM EDT - Continue [...] your visit notes to our office (fax [phone]). - See Dr. Marysol Cardoza on March 12 and sign a release for [facility] to send your test results. Your neuropathy and nerve conduction tests are scheduled there on March 13. - Monitor for any of the following and contact your conduit installer or go to urgent care/ER if they [...] exercise recommended. Please call the office at [phone] Option 4 or send a direct message via Keelr with any questions related to your visit today. Time throughout the day is reserved for patients with scheduled appointments. Please kindly allow 2-3 business days for staff to respond to phone calls or Keelr messages. documented in this encounterKet[facility]08-27-2025 Telephone encounter Note * Telephone Encounter - [...] Garrett as PCP, continue with Alyx at [facility] for INR checks and will keep better track of his medication and taking it as directed. Pt states he is currently taking 5 mg of Coumadin daily except on Wednesdays, he takes 7.5 mg (one and a half tablets). Pt would like to cancel his [facility] appt for tomorrowas he has an appt in the two needle machine operator with Brinda Breann. He will have her do a fingerstick INR and report it to Dr. Garrett. Pt took his last dose of Coumadin today and needs [facility] in [place]. Discussed with pt also if he would be interested in the [facility] clinic pool run by pharmacists. Atthis time, he will continue with Dr. Garrett. [facility]08-27-2025 Telephone encounter Note* Telephone Encounter - Carolina Lara RN - 03/06/2025 6:02 PM EDT Please see other phone encounter dated 03/06/25 [facility]08-27-2025 Miscellaneous Notes* Telephone Encounter - Carolina Lara [...] Aniya Napier March 06, 2025 2:25 PM documented in this encounterKettering Health Behavior[facility] Center08-27-2025 Miscellaneous Notes* Telephone Encounter - Carolina Lara [...] Garrett as PCP, continue with A[facility]x at [facility] for INR checks and will keep better track of his medication and taking it as directed. Pt states he is currently taking 5 mg of Coumadin daily except on Wednesdays, he takes 7.5 mg (one and a half tablets). Pt would like to cancel his Anticoag clinic appt for tomorrowas he has an appt in the two needle machine operator with Brinda Breann. He will have her do a fingerstick INR and report it to Dr. Garrett. Pt took his last dose of Coumadin today and needs new script sent to [facility] in [place]. Discussed with pt also if he would be interested in the Anticoag clinic pool run by pharmacists. Atthis time, he will continue with Dr. Garrett. documented in this encounterKettering Health [facility] Center08-27-2025 NoteHNO ID: [id number] Author: COLLEEN HOFFMAN LPN Service: ? Author Type: Licensed Nurse Type: Progress Notes Filed: 03/07/2025 11:14 Note Text: Papi is here today due to mild shortness of breath on exertion This has been happening since his heart surgery December 25 Patient goes to the [facility] in [place] he missed a couple dose of his medication last week Patient is asking if he can get an INR test done today because he cannot make it to the [place] [facility] for a couple of weeks Per Robyn patient does have a standing order for POC INR testing INR done in office today (result 2.0) with instructions per Robyn for patient contact the Coumadin (anticoagulant) Clinic in [place] for dosing instructions No refills needed Colleen Hoffman LPN March 07, 2025 8:31 AM [id number] State [facility] Hospital08-27-2025 Telephone encounter Note* Telephone Encounter - Aniya Lin - 03/06/2025 2:26 PM EDT Patient is out of his medication and needs it sent in [place]. He was under the impression this was taken care of at his visit with Dr. Garrett on 02-27-25 [facility]08-27-2025 Telephone encounter Note* Telephone Encounter - Aniya [...] Aniya Napier March 06, 2025 2:25 PM [facility]08-25-2025 Note* Addendum Note - Robyn Taylor APRN.CNP - 03/04/2025 5:08 PM EDTAddended by: ROBYN TAYOLR on: 03/04/2025 05:08 PM Modules accepted: Orders [facility]08-25-2025 Telephone encounter Note* Telephone Encounter - Robyn Taylor APRN.CNP - 03/04/2025 5:08 PM EDT Also sending albuterol HFA Q4-6 hours PRN dyspnea, wheezing. Robyn Taylor APRN.CNP [facility]08-25-2025 Miscellaneous Notes* Addendum Note - Robyn Taylor [...] this with him previously. Looks like Sruthi StoverDaily had last sent Anoro to tx chronic [...] Patient requesting refill of inhaler Anoro to [facility], stating this has helped his symptoms previously and his breathing has not returned to 100% since. Victorina Juares, ROXANA documented in this encounterKettering Health [facility]08-25-2025 Telephone encounter Note * Telephone Encounter - Robyn Taylor APRN.CNP - 03/04/2025 5:05 PM EDT Yes please triage! I do not recall ever discussing this with him previously. Looks like Sruthi Daily had last sent Anoro to tx chronic bronchitis but rx in December and it's not on his problemlist so I did not review it. He may be in active exacerbation if hasn't had inhaler in several months. I will send refill but may need sooner visit for steroids. Robyn Taylor APRN.QAMAR [facility]08-25-2025 Telephone encounter Note* Telephone Encounter - Victorina Juares RN - 03/04/2025 4:04 PM EDT Patient requesting refill of inhaler Anoro to [facility] on [facility], stating this has helped his symptoms previously and his breathing has not returned to 100% since. Victorina Juares RN [facility]08-21-2025 NoteHNO ID: [id number] Author: VAMSHI BENSON MD Service: ? Author [...] clean since 06/21/2018. Went to treatment at [facility] for 9 months Mitral regurgitation Murmur Pleural [...] one time a wee (more content not included)...[facility]08-21-2025 History of Present illness Narrative* Vamshi Benson [...] clean since 06/21/2018. Went to treatment at [facility] for 9 months Mitral regurgitation Murmur Pleural [...] control EMG testin already scheduled FOLLOW UP: prn Vamshi Benson MD I spent a total of 30 minutes on the date of the service which included preparing to see the patient, [id number] patient care, completing clinical documentation, performing a [...] Currently Types: Crack Cocaine documented in this encounterKettering Health [facility] Center08-20-2025 Telephone encounter Note * Telephone Encounter - Eliza Josue RN - 02/27/2025 11:19 AM EDT PAC received an updated referral for the patient. INR (POCT) (no units) Date Value 02/22/2025 1.9 02/06/2025 2.4 01/23/2025 2.8 Updated anticoag navigator. Alexa Josue RN Pharmacy Anticoagulation Clinic [facility]08-20-2025 Miscellaneous Notes* Telephone Encounter - Eliza Josue RN - 02/27/2025 11:19 AM EDT PAC received an updated referral for the patient. INR (POCT) (no units) Date Value 02/22/2025 1.9 02/06/2025 2.4 01/23/2025 2.8 Updated anticoag navigator. Alexa Josue RN Pharmacy Anticoagulation Clinic documented in this encounterKettering Health Behavioral Medical Center08-20-2025 NoteGood Samaritan Hospital08-20-2025 History of Present illness Narrative* Renay Garrett MD - 02/27/2025 10:44 AM EDT Images from the original note were not included. Family Medicine OUTPATIENT VISIT February 27, 2025 CC: History of aortic mechanical valve HPI: 44 year old male patient with a history of Diabetes followed by [facility] data capture specialist. Neuropathy (EMG ordered) Overweight Hx of aortic valve replacement, follows with Dr. Morris of [facility] upcoming visit on 03/15 Follows with [facility], on warfarin for Aortic valve. Goal INR is 2-3 HLD last LDL 102 /, on crestor 10 Hypothyroid on synthroid 150 [...] vomiting, or diarrhea or abdominal pain. No AK bleeding or melana : No history of [...] clean since 06/21/2018. 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 No abnormal posturing or [...] Renay Garrett MD Internal Medicine and Pediatrics [facility] 02/27/2025 11:04 AM Portions of note generated prior to visit. History of illness, past medical and surgical history, family and social history, medications, allergies, labs and imaging reviewed during visit and are updated as appropriate following visit. I spent 30 minutes in the visit, with more than 50% of the total sypy-ye-miem time of the visit in counseling / coordination of care. Future Appointments Date Time Provider Department Center 02/28/2025 11:30 AM Vamshi Benson MD [facility] 03/07/2025 12:00 PM [facility] [place] [facility] 03/12/2025 8:30 AM Marysol Cardoza MD [facility]UM[facility] [place] [facility] 07/16/2025 2:40 PM Robyn Taylor APRN.[facility] [1] Social History Tobacco Use [...] Currently Types: Crack Cocaine documented in this encounterKettering Health Behavioral Medical Center08-15-2025 NoteGood Samaritan Hospital08-15-2025 History of Present illness Narrative* Alyx eHrnandez RN - 02/22/2025 1:12 PM EDT patient had inr completed at [facility] patients inr is 1.9 (patients inr [...] to the missed dose * Jaelyn Black RP - 02/22/2025 10:15 AM EDT INR of 1.9 is slightly below goal. Agree with plan to continue current warfarin dose of 7.5mg Wed/ 5mg all other days and recheck INR on 02/04. Jaelyn Black PharmD documented in this encounterKettering Health Behavioral [facility] Center08-15-2025 NoteGood Samaritan Hospital08-12-2025 Telephone encounter Note* Telephone Encounter - Betty Hassan - 02/19/2025 2:12 PM EDT new pt internal referral from Robyn Taylor APRN.AMBULANCE ATTENDANT for PVD (Numbness of right foot, Type 1 diabetes mellitus with diabetic polyneuropathy) - PVR 12/19/24 Left vm for pt to call office to schedule consult [facility]08-12-2025 Miscellaneous Notes* Telephone Encounter - Betty Hassan - 02/19/2025 2:12 PM EDT new pt internal referral from Robyn Taylor APRN.AMBULANCE ATTENDANT for PVD (Numbness of right foot, Type 1 diabetes mellitus with diabetic polyneuropathy) - PVR 12/19/24 Left vm for pt to call office to schedule consult documented in this encounterKettering Health Behavioral [facility] Center08-12-2025 Telephone encounter Note * Telephone Encounter - Stacia Valdivia MA - 02/19/2025 9:04 AM EDT Items addressed in this encounter: Telephone Encounter Vascular referral faxed, pt notified via [employer] Able to close encounter. Stacia Valdivia MA February 19, 2025 9:04 AM 9:04 AM [facility]08-12-2025 Miscellaneous Notes* Telephone Encounter - Stacia Valdivia MA - 02/19/2025 9:04 AM EDT Items addressed in this encounter: Telephone Encounter Vascular referral faxed, pt notified via [employer] Able to close encounter. Stacia Valdivia MA February 19, 2025 9:04 AM 9:04 AM * Telephone Encounter - Eliza Hopkins - 02/18/2025 3:32 PM EDT Patient called office wanted to know if the referral to [facility] has been done, as previous referral was sent to [facility] [place] in which they do not accept his insurance. Eliza Afshin Sandeep documented in this encounterKettering Health [facility] Telephone encounter Note * Telephone Encounter - Stacia Valdivia MA - 02/19/2025 9:03 AM EDT Items addressed in this encounter: RadarFindhart Encounter referral info given via [employer] Able to close encounter. Stacia Valdivia MA February 19, 2025 9:03 AM 9:03 AM [facility]08-12-2025 Miscellaneous Notes* Telephone Encounter - Stacia Valdivia MA - 02/19/2025 9:03 AM EDT Items addressed in this encounter: MyChart Encounter referral info given via [employer] Able to close encounter. Stacia Valdivia MA February 19, 2025 9:03 AM 9:03 AM documented [facility] encounterK[facility] Telephone encounter Note * Telephone Encounter - Stacia Valdivia MA - 02/19/2025 8:57 AM EDT Items addressed in this encounter: Fax/Forms Vascular referral faxed to Vascular referral info given via [employer] Able to close encounter. Stacia Valdivia MA February 19, 2025 8:57 AM 8:57 AM [facility]08-12-2025 Miscellaneous Notes* Telephone Encounter - Stacia Valdivia MA - 02/19/2025 8:57 AM EDT Items addressed in this encounter: Fax/Forms Vascular referral faxed to [facility] [phone] referral info given via [employer] Able to close encounter. Stacia Valdivia MA February 19, 2025 8:57 AM 8:57 AM documented in this encounterK[facility]08[facility] Telephone encounter Note * Telephone Encounter - Eliza Hopkins - 02/18/2025 3:32 PM EDT Patient called office wanted to know if the referral to [facility] has been done, as previous referral was sent to [facility] [place] in which they do not accept his insurance. Eliza Hopkins [facility]08-11-2025 Telephone encounter Note* Telephone Encounter - Colleen Hoffman LPN - 02/18/2025 1:43 PM EDT Referral faxed to [facility]#[phone] fax#[phone]. I left this information for patient in a message on his voice mail. Colleen Hoffman LPN February 18, 2025 1:43 PM [facility]08-11-2025 Miscellaneous Notes* Telephone Encounter - Colleen Hoffman LPN - 02/18/2025 1:43 PM EDT Referral faxed to [facility]#[phone] fax#[phone]. I left this information for patient in a message on his voice mail. Colleen Hoffman LPN February 18, 2025 1:43 PM documented in this encounterKet[facility]08-[facility]-2025 NoteHNO ID: [id number] Author: ROBYN TAYLOR APRN.AMBULANCE ATTENDANT Service: ? Author Type: Nurse Practitioner Type: Progress Notes Filed: 02/13/2025 17:12 Note Text: This note was created using Mechanology technology with patient consent. Subjective Luisito Zhong [...] the end of the month, ordered by synoptic meteorologist Dr. Desai. - Has a virtual appointment with neuromuscular specialist Dr. Marysol Cardoza on 03/12. Diabetes: - Managed by synoptic meteorologist Dr. Desai of [facility]. - Recent focus on thyroid levels during last visit. - Scheduled to see Dr. Desai again in a month. Aortic Valve Replacement: - Recent aortic valve replacement surgery. - Follow-up appointment with conduit installer Dr. Morris at [facility] on 03/15. - Reports ongoing fatigue and dyspnea at baseline. - Recent chest X-ray showed no acute abnormalities and resolved pleural effusion. - Following with [facility] for warfarin management. - Has an upcoming appointment with a new PCP, Dr. Renay Garrett, in [place] on 02/27 for anticoagulation management. PAST MEDICAL HISTORY Diagnosis Date Acquired hypothyroidism Alcohol abuse sober since 2013 Anxiety and depression 04/04/2019 Cocaine abuse in remission ([facility]) last used 10/17/2014 Ex-smoker Ex-smoker Started at the age of 15 up to 1 PPD and quit 07/2018 Frozen shoulder 03/12/2014 History of drug abuse ([facility]) 04/04/2019 Cocaine and marijuana. Has been clean since 06/21/2018. 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 Tetrahydrocannabinol (THC) use disorder, mild, in sustained remission, in controlled environment, abuse Type 1 diabetes mellitus with diabetic polyneuropathy ([facility]) ACTIVE PROBLEM LIST Impingement Syndrome of Right Shoulder Type 1 Diabetes Mellitus With Diabetic Polyneuropathy ([facility]) Acquired Hypothyroidism Former Smoker Subaortic Membrane ([facility]) Mitral Regurgitation Alcohol Abuse History of Drug Abuse ([facility]) Mixed Anxiety and Depressive Disorder Dyspnea Dyslipidemia [...] Pain in Joint, Shoulder Region Substance Abuse ([facility]) Vitamin D Deficiency Type 1 Diabetes Mellitus Without Complication ([facility]) Homeless Cocaine Abuse ([facility]) Aortic Valve Disorder Class 1 Drug-Induced Obesity With Serious Comorbidity and Body Mass Index (Bmi) of 31.0 to 31.9 in Adult Pre-Op Testing Crack Cocaine Use 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 Postoperative Pulmonary Edema ([facility]) S/P Avr (Aortic Valve Replacement) Nonrheumatic Aortic Valve Stenosis Coagulopathy ([facility]) Stress Hyperglycemia Anticoagulation Management Encounter Type 1 Diabetes Mellitus With Hyperglycemia ([facility]) Insulin Pump in Place Obesity, Class I, Bmi 30-34.9 Pot Fireman Current Use of Anticoagulant Therapy Chronic Anemia Overweight With Body Mass Index (Bmi) of 29 to 29.9 in Adult History of Mechanical Aortic Valve Replacement Retirement (Current) Use of Anticoagulants Tachycardia Herniation of [...] C to increase absorptio (more content not included)...[facility]08-05-2025 NoteHNO ID: [id number] Author: COLLEEN HOFFMAN LPN Service: ? 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 Would continue 7.5 mg on Wed and 5 mg all other days as noted below. Would prefer a sooner follow up in 2 weeks however due to being on warfarin for only 1 month. Caterina Reddy RPh * Alyx Hernandez RN - 02/06/2025 4:24 PM EDT patient had inr completed at [facility] patients inr is 2.4 (patients inr [...] for follow up INR. documented in this encounterKettering [facility]07-30-2025 NoteGood [facility]aritan [facility]07-30-2025 NoteGood [facility]aritan [facility]07-17-2025 History of Present illness Narrative* Robyn Taylor APRN.QAMAR - 01/24/2025 2:35 PM EDT This note was created using Mechanology technology with patient consent. Subjective Luisito Zhong [...] for appointment scheduling. - Follow-up appointment at [facility] scheduled for 90-day graeme, including a [...] Undergoing physical therapy. - Follow-up appointment with homeland security program specialist Dr. Kaur at [facility] scheduled for February 06. Anemia: - Recent [...] clean since 06/21/2018. 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 Tetrahydrocannabinol (THC) use disorder, mild, in sustained remission, in controlled environment, abuse Type 1 diabetes mellitus with diabetic polyneuropathy (HCC) ACTIVE PROBLEM LIST Impingement Syndrome of Right Shoulder Type 1 Diabetes Mellitus With Diabetic Polyneuropathy (Hcc) Acquired Hypothyroidism Former Smoker Subaortic Membrane (Hcc) Mitral Regurgitation Alcohol Abuse History of Drug Abuse ([facility]) Mixed Anxiety and Depressive Disorder Dyspnea Dyslipidemia [...] Pain in Joint, Shoulder Region Substance Abuse ([facility]) Vitamin D Deficiency Type 1 Diabetes Mellitus Without Complication ([facility]) Homeless Cocaine Abuse ([facility]) Aortic Valve Disorder Class 1 Drug-Induced Obesity With Serious Comorbidity and Body Mass Index (Bmi) of 31.0 to 31.9 in Adult Pre-Op Testing Crack Cocaine Use 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 Postoperative Pulmonary Edema ([facility]) S/P Avr (Aortic Valve Replacement) Nonrheumatic Aortic Valve Stenosis Coagulopathy ([facility]) Stress Hyperglycemia Type 2 Diabetes Mellitus Without Complication, With Long-Term Current Use of Insulin ([facility]) Anticoagulation Management Encounter Type 1 Diabetes Mellitus With Hyperglycemia ([facility]) Insulin Pump in Place Obesity, Class I, Bmi 30-34.9 Pot Fireman Current Use of Anticoagulant Therapy Chronic Anemia Overweight With Body Mass Index (Bmi) of 29 to 29.9 in Adult Pleural Effusion On Right History of Mechanical Aortic Valve Replacement Pot Fireman (Current) Use of Anticoagulants Tachycardia Herniation of [...] of 2-3. - Referral to cardiology in [place] pending; will follow up with exhibition specialist to expedite. - Scheduled for a [...] effusion; patient advised to [facility] at [facility]. - Will review results and communicate findings via MyChart. 5. Iron deficiency anemia secondary to inadequate [...] cervical disc herniation. - Scheduled to see homeland security program specialist Dr. Kaur on February 06. 8. Type 2 diabetes mellitus without complication, with long-term current use of insulin (HCC) (E11.9) - A1c at 6.4%, well-controlled. - LDL cholesterol at 102 mg/dL, stable on statin therapy. - Urine [id number] ratio within normal range, indicating good renal [...] the office or send a message via Keelr with any questions related to this visit. Please Note: The patient consented to the use of Smartdate software for draft documentation of thevisit consistent with [facility] s Notice of Privacy Practices. Portions of this office note have been created using [employer], a speech recognition software program, and may [...] unable to get Xray done yesterday in [place] because the Xray machine was down He is also here to review his recent chest Xray Patient is going to a Coumadin Clinic in [place] and does not need Robyn to manage his therapy he had an INR test done yesterday and it was 2.8 Patient says he has had a headache over the past few days Patient's temperature is elevated at 99.5 degrees F Recheck 99.8 degrees F No refills needed Colleen Hoffman LPN January 24, 2025 1:34 PM documented in this encounterKettering Health [facility]07-17-2025 NoteHNO ID: [id number] Author: ROBYN TAYLOR APRN.AMBULANCE ATTENDANT Service: ? Author Type: Nurse Practitioner Type: Progress Notes Filed: 02/05/2025 01:40 Note Text: This note was created using Mechanology technology with patient consent. Subjective Luisito Zhong [...] for appointment scheduling. - Follow-up appointment at [facility] scheduled for 90-day graeme, including a [...] Undergoing physical therapy. - Follow-up appointment with homeland security program specialist Dr. Kaur at [facility] scheduled for February 06. Anemia: - Recent [...] clean since 06/21/2018. 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 Tetrahydrocannabinol (THC) use disorder, mild, in sustained remission, in controlled environment, abuse Type 1 diabetes mellitus with diabetic polyneuropathy ([facility]) ACTIVE PROBLEM LIST Impingement Syndrome of Right Shoulder Type 1 Diabetes Mellitus With Diabetic Polyneuropathy ([facility]) Acquired Hypothyroidism Former Smoker Subaortic Membrane ([facility]) Mitral Regurgitation Alcohol Abuse History of Drug Abuse ([facility]) Mixed Anxiety and Depressive Disorder Dyspnea Dyslipidemia [...] Pain in Joint, Shoulder Region Substance Abuse ([facility]) Vitamin D Deficiency Type 1 Diabetes Mellitus Without Complication ([facility]) Homeless Cocaine Abuse ([facility]) Aortic Valve Disorder Class 1 Drug-Induced Obesity With Serious Comorbidity and Body Mass Index (Bmi) of 31.0 to 31.9 in Adult Pre-Op Testing Crack Cocaine Use 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 Postoperative Pulmonary Edema ([facility]) S/P Avr (Aortic Valve Replacement) Nonrheumatic Aortic Valve Stenosis Coagulopathy ([facility]) Stress Hyperglycemia Type 2 Diabetes Mellitus Without Complication, With Long-Term Current Use of Insulin ([facility]) Anticoagulation Management Encounter Type 1 Diabetes Mellitus With Hyperglycemia ([facility]) Insulin Pump in Place Obesity, Class I, Bmi 30-34.9 Pot Fireman Current Use of Anticoagulant Therapy Chronic Anemia Overweight With Body Mass Index (Bmi) of 29 to 29.9 in Adult Pleural Effusion On Right History of Mechanical Aortic Valve Replacement Pot Fireman (Current) Use of Anticoagulants Tachycardia Herniation of [...] 1 tablet b (more content not included)... [facility]07-17-2025 NoteHNO ID: [id number] Author: COLLEEN HOFFMAN LPN Service: ? Author Type: LICENSED NURSE Type: Progress Notes Filed: 02/05/2025 01:40 Note Text: Papi is here today for a follow up for his chronic health conditions and to review his chest xray He was unable to get Xray done yesterday in [place] because the Xray machine was down He is also here to review his recent chest Xray Patient is going to a Coumadin Clinic in [place] and does not need Robyn to manage his therapy he had an INR test done yesterday and it was 2.8 Patient says he has had a headache over the past few days Patient's temperature is elevated at 99.5 degrees F Recheck 99.8 degrees F No refills needed Colleen Hoffman LPN January 24, 2025 1:34 PMOregon [facility]07-16-2025 History of Present illness Narrative* Alyx Hernandez RN - 01/23/2025 4:36 PM EDT patient had inr completed at [facility] patients inr is 2.8 (patients inr [...] dose as noted - 7.5 mg on Tue / 5 mg all other days. But [...] last week. Can we see him sooner? Caternia Reddy RPh documented in this encounterKettering [facility]07-16-2025 NoteGood [facility]aritan [facility]07-16-2025 NoteGood [facility]aritan Hospital07-16-2025 NoteGood [facility]aritan Hospital07-15-2025 Telephone encounter Note* Telephone Encounter - Robyn Taylor APRN.CNP - 01/22/2025 12:16 PM EDT Thank you! Robyn Taylor APRN.CNP [facility]07-15-2025 Miscellaneous Notes* Telephone Encounter - Robyn Taylor [...] 01/21/2025 5:07 PM EDT Per Robyn Taylor APRN.AMBULANCE ATTENDANT regarding patient's recent test results: Please inform patient A1c is stable at 6.4%. Ensure he has secured an appointment with endocrinology in [place] (referred on 01/10). Cholesterol also stable. Continue [...] now established with the coumadin clinic in [place] and most recent INR is in range [...] and CXR results in detail. Robyn Taylor APRN.AMBULANCE ATTENDANT I attempted to call patient Luisito. No answer. I left a voice mail message for patient to return call to office. Colleen Hoffman LPN January 21, 2025 5:12 PM documented in this encounterKettering Health [facility]07-15-2025 Telephone encounter Note * Telephone Encounter - Colleen Hoffman LPN - 01/22/2025 11:32 AM EDT I spoke with patient Papi and advised him of all information and instructions per Robny's note. Patient did voice understanding. He did [...] Hoffman LPN January 22, 2025 11:38 AM [facility]07-15-2025 Telephone encounter Note* Telephone Encounter - Colleen Hoffman LPN - 01/22/2025 10:14 AM EDT I attempted to call patient Papi. No answer. I left a voice mail message for patient to return callto office. Colleen Hoffman LPN January 22, 2025 10:15 AM [facility]07-14-2025 Telephone encounter Note* Telephone Encounter - Colleen Hoffman LPN - 01/21/2025 5:07 PM EDT Per Robyn Taylor APRN.AMBULANCE ATTENDANT regarding patient's recent test results: Please inform patient A1c is stable at 6.4%. Ensure he has secured an appointment with endocrinology in [place] (referred on 01/10). Cholesterol also stable. Continue [...] now established with the coumadin clinic in [place] and most recent INR is in range [...] Hoffman LPN January 21, 2025 5:12 PM [facility]07-10-2025 NoteGood [facility]aritan Hospital07-10-2025 History of Present illness Narrative* Alyx Hernandez, RN - 01/17/2025 1:41 PM EDT patient had inr completed at [facility] patients inr is 2.5 (patients inr [...] plan. Ania Caballero RPh documented in this encounterKettering Health [facility]07-10-2025 NoteHNO ID: [id number] Author: ANIA CABALLERO RPh Service: ? Author Type: Pharmacist Type: Progress Notes Filed: 01/17/2025 16:28 Note Text: Agree with plan. 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 documented in this encounterKettering Health [facility]07-09-2025 Telephone encounter Note * Telephone Encounter - Madelaine Alexis RPh - 01/16/2025 4:42 PM EDT [facility]ticoagulation Clinic Anticoagulation Episode Summary Anticoagulation Care Providers Provider Role Specialty Phone number Joe-Nliam, Jt Garcia MD Referring Cardiology [phone] Luisito Zhong is a 44 year old [...] skin Indication for Warfarin: Anticoagulation management encounter alf current use of anticoagulant therapy History of 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 [facility]07-08-2025 Telephone encounter Note* Telephone Encounter - Marina Paulino RPh - 01/15/2025 12:21 PM EDT I have read and agree with recommendations below. Pharm. Violetta Montilla [facility]07-08-2025 Miscellaneous Notes* Telephone Encounter - Marina Paulino RPh - 01/15/2025 12:21 PM EDT I have read and agree with recommendations below. Pharm. Violetta Montilla * Telephone Encounter - Eliza Josue RN [...] Department of Pharmacy and member of the [facility]. Under this policy, you agree [...] therapy is Indefinite Preferred location for visits: [facility] Warfarin start date: 12/25/2024 Patient was previously [...] 01/16 [facility] Patient accepts the warfarin education video. Mode of learning: Keelr video link Next Action for Anticoag Management: Lab Eliza Josue RN documented in this encounterKettering Health [facility]07-08-2025 Telephone encounter Note * Telephone Encounter - [...] Department of Pharmacy and member of the [facility]. Under this policy, you agree [...] you for your referral, Anticoagulation Management Services [facility]07-08-2025 Telephone encounter Note* Telephone Encounter - Eliza Josue RN - 01/15/2025 10:27 AM EDT New Referral Contact: Pharmacist Anticoagulation Clinic The patient was called to discuss recent referral to the Anticoagulation Clinic. Mode of contact: cell phone Referral date: 01/14 Referring physician: Jt King Indication: AVR Goal INR: 2-3 The expected duration of therapy is Indefinite Preferred location for visits: [facility] Warfarin start date: 12/25/2024 Patient was previously [...] 01/16 [facility]: [facility]/17 Patient accepts the warfarin education video. Mode of learning: Keelr video link Next Action for Anticoag Management: Lab Eliza Josue RN [facility]07-07-2025 Telephone encounter Note* Telephone Encounter - Aniya Cao RN - 01/14/2025 12:[address] Diaz Pls let the patient know that I placed the referral with me as the provider. We typically do not doINRs so he should please private branch exchange repairer to his PCP as soon as feasible RacerTimest message sent Aniya Cao RN [facility]07-07-2025 Miscellaneous Notes* Telephone Encounter - Aniya Cao RN - 01/14/2025 12:[address] Diaz Pls let the patient know that I placed the referral with me as the provider. We typically do not doINRs so he should please private branch exchange repairer to his PCP as soon as feasible RadarFindhart message sent Aniya Cao RN documented in this encounterKettering Health [facility]07-03-2025 Telephone encounter Note * Telephone Encounter - Aniya Cao RN - 01/10/2025 4:46 PM EDT will be resolved in a another encounter Aniya Cao RN [facility]07-03-2025 Miscellaneous Notes* Telephone Encounter - Aniya Cao RN - 01/10/2025 4:46 PM EDT will be resolved in a another encounter Aniya Cao RN * Telephone Encounter - Karen Alejandro - 01/10/2025 1:02 PM EDT [facility] Desk called to request for the pt that Dr. Diaz writes a referral to the [facility] coumadin clinic, as pt is moving. Pt has an appt with a new PCP on 02/27 and says that PCP can take it over once he's established. Karen Alejandro Pot Fireman II January 10, 2025 1:04 PM documented in this encounterKettering Health [facility]07-03-2025 History of Present illness Narrative* Temsic, Robyn K, COVER OPERATOR.AMBULANCE ATTENDANT - 01/10/2025 4:43 PM EDT This note was created using Mechanology technology with patient consent. Subjective Luisito Zhong is a 44-year-old male with a history of aortic valve replacement, type 1 diabetes, and neuropathy, presenting for an initial visit to establish care, transitional care management with hospital follow-up after placement of mechanical aortic valve, and management of anticoagulation therapy. Anticoagulation Management: - Recent mechanical aortic valve placement on 12/25/24 at [facility] per Dr. Beavers; revised from initial [...] - Managed per PCP Dr. Umanzor of [facility]; seeking referral to Coumadin Clinic in [place]. Aortic Valve Replacement: - Recent mechanical valve replacement; initial porcine valve placed in 2021. - History of aortic, mitral, and tricuspid regurgitation. - Follow-up with conduit installer in 6-8 weeks advised; next appointment with surgeon in [address] to re-evaluate aortic root. - Has current visit scheduled with Dr. Morris of [facility] on 01/18; desires to establish with conduit installer locally, preferably in [place]. Pleural Effusion: - Post-operative pleural effusion noted [...] months ago with Dr. Kristal Desai at [facility]. Hypothyroidism: - Managed with levothyroxine 150 mcg daily per synoptic meteorologist. - Last thyroid function test reportedly really, [...] use; sober since 06/2018; received treatment at [facility] for 9 months; denies current drug use. - Denies heavy alcohol use. Anxiety and Depression: - History of anxiety and depression; currently managed with Lexapro and duloxetine. - Denies current suicidal ideation. Orthopedic Issues: - Experiencing nerve issues; scheduled to see Dr. Madison Regan at [facility] and Dr. Mejía at [facility]. - Under pain management with Dr. Alvarado Mujica in [place], [place]. Asthma: - History of asthma; denies [...] clean since 06/21/2018. 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] previous porcine valve replaced. - Follow-up with conduit installer in 6-8 weeks; urgent referral to [facility] [facility] initiated. - Scheduled follow-up with surgical team in [address] scan to assess aortic root. - No evidence of murmur on auscultation; heart rate regular with audible click of mechanical valve. 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 Anticoagulation management encounter (Z51.81) - Current warfarin dosage: 2.5 mg on Tuesday, Tuesday, and Tuesday; 5 mg on Tuesday, Tuesday, Tuesday, and . - Recent INR levels: 1.3 on Tuesday, 1.4 today; goal INR 2.0-3.0. - Adjusted warfarin dosage to 5 mg daily. - Referral to [facility] in [place]; follow-up in one week for INR check. - Prescription for 5 mg warfarin tablets for one month sent to [facility]. 7. Postoperative pulmonary edema (HCC) (J81.0) 8. [...] (Z96.41) - Managed with insulin pump per synoptic meteorologist Dr. Desai; recent A1c 6.7% prior to surgery. - Referral to endocrinology in [place] initiated per patient request. - Advised to discuss having backup insulin pens available. - Ordered urine test for albumin creatinine ratio screening. 14. Acquired hypothyroidism (E03.9) - Managed with levothyroxine 150 mcg daily. - Recent thyroid function tests reportedly stable. - Referral to endocrinology in [place] initiated per patient request. 15. Chronic anemia [...] the office or send a message via Keelr with any questions related to this visit. Please Note: The patient consented to the use of Smartdate software for draft documentation of thevisit consistent with [facility] s Notice of Privacy Practices. Portions of this office note have been created using [employer], a speech recognition software program, and may contain errors including punctuation, grammar, spelling, gender, and inappropriate words or phrases that pertain to the system. DATE: January 10, 2025 SIGNATURE: Robyn Taylor APRN.AMBULANCE ATTENDANT * Stephani Cox LPN - 01/10/2025 3:40 PM EDT Patient is in office to establish care. Previous PCP: Dr. Erna Olguin Last visit with PCP: last week Specialists: Cardiology - Aortic Valve stenosis - S/P on 12/25/2024: Redo Sternotomy, Mechanical Bentall ([address] Graft) Endocrinology - Type 1 diabetes, Acquired Hypothyroidism Patient is currently on Coumadin Therapy Range 2-3 Last INR = 1.3 on 01-07-2025 Today in Office: 1.4 Current Coumadin Dose: 2.5 mg Tuesday 5 mg Tuesday, Tuesday, Tuesday, , Patient denies missing doses of medication. Patient has history of drug and alcohol abuse. Patient would like a referral for Coumadin Clinic at [facility] on [facility]. Stephani Cox LPN January 10, 2025 3:52 PM documented in this encounterKettering Health Behavioral [facility] Center07-03-2025 NoteHNO ID: [id number] Author: ROBYN TAYLOR APRN.QAMAR Service: ? Author Type: Nurse Practitioner Type: Progress Notes Filed: 01/14/2025 01:24 Note Text: This note was created using Mechanology technology with patient consent. Subjective Luisito Zhong is a 44-year-old male with a history of aortic valve replacement, type 1 diabetes, and neuropathy, presenting for an initial visit to establish care, transitional care management with hospital follow-up after placement of mechanical aortic valve, and management of anticoagulation therapy. Anticoagulation Management: - Recent mechanical aortic valve placement on 12/25/24 at [facility] per Dr. Beavers; revised from initial [...] - Managed per PCP Dr. Umanzor of [facility]; seeking referral to Coumadin Clinic in [place]. Aortic Valve Replacement: - Recent mechanical valve replacement; initial porcine valve placed in 2021. - History of aortic, mitral, and tricuspid regurgitation. - Follow-up with conduit installer in 6-8 weeks advised; next appointment with surgeon in [address] to re-evaluate aortic root. - Has current visit scheduled with Dr. Morris of [facility] on 01/18; desires to establish with conduit installer locally, preferably in [place]. Pleural Effusion: - Post-operative pleural effusion noted [...] months ago with Dr. Kristal Desai at [facility]. Hypothyroidism: - Managed with levothyroxine 150 mcg daily per synoptic meteorologist. - Last thyroid function test reportedly really, [...] use; sober since 06/2018; received treatment at [facility] for 9 months; denies current drug use. - Denies heavy alcohol use. Anxiety and Depression: - History of anxiety and depression; currently managed with Lexapro and duloxetine. - Denies current suicidal ideation. Orthopedic Issues: - Experiencing nerve issues; scheduled to see Dr. Madison Regan at [facility] and Dr. Mejía at [facility]. - Under pain management with Dr. Alvarado Mujica in [place], [place]. Asthma: - History of asthma; denies [...] clean since 06/21/2018. 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 - Return in one week for a follow-up visit to review your INR, lab results, and chest x-ray. - Referral placed to the [place] [facility]; call them to confirm the order and attend if theycan see you sooner, then let us know. - Complete these tests before or at your follow-up appointment at [place] lab/radiology ([facility]) or your [place] facility: - CBC (complete blood count) - [...] office. - Referral sent for endocrinology in [place] (diabetes pump and thyroid management); if you haven tbeen contacted within one week, call our office. - Referral sent to [facility] for general cardiology; schedule an appointment as soon as possible. - Schedule a dilated diabetic eye exam and ask your eye doctor to fax the report to [phone]. - Incorporate iron-rich foods into your diet; [...] the front of this building or any [facility] lab facility. Urgent care lab is open 7 days per week from 7 am to 8 pm on weekdays and 9 am to 5 pm on weekends with the exception of some holidays. An appointment is not necessary but can be scheduled via RacerTimest if desired. Take all medications as prescribed. Continue to follow with specialist providers. Healthy diet and regular aerobic exercise recommended. Please call the office at [phone] Option 4 or send a direct message via Keelr with any questions related to your visit today. Time throughout the day is reserved for patients with scheduled appointments. Please kindly allow 2-3 business days for staff to respond to phone calls or Keelr messages. documented in this encounterKettering Health Behavioral Medical Center07-03-2025 NoteHNO ID: [id number] Author: STEPHANI COX LPN Service: ? Author Type: LICENSED NURSE Type: Progress Notes Filed: 01/14/2025 01:24 Note Text: Patient is in office to establish care. Previous PCP: Dr. Erna Olguin Last visit with PCP: last week Specialists: Cardiology - Aortic Valve stenosis - S/P on 12/25/2024: Redo Sternotomy, Mechanical Bentall ([address] Composite Graft) Endocrinology - Type 1 diabetes, Acquired Hypothyroidism Patient is currently on Coumadin Therapy Range 2-3 Last INR = 1.3 on 01-07-2025 Today in Office: 1.4 Current Coumadin Dose: 2.5 mg Tuesday 5 mg Tuesday, Tuesday, Tuesday, , Patient denies missing doses of medication. Patient has history of drug and alcohol abuse. Patient would like a referral for Coumadin Clinic at [facility] on [facility]. Stephani Cox LPN January 10, 2025 3:52 PMOregon State [facility]07-03-2025 Telephone encounter Note* Telephone Encounter - Karen Alejandro - 01/10/2025 1:02 PM EDT J-4 Desk called to request for the pt that Dr. Diaz writes a referral to the [facility] coumadin clinic, as pt is moving. Pt has an appt with a new PCP on 02/27 and says that PCP can take it over once he's established. 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 Pt made aware. 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 Pt made aware. * Telephone Encounter - Sara Pedraza APRN.CNP - 01/08/2025 12:35 PM EDT pt called states was to have a water pill after labs were back & he saw labs were back this conventional underwriter reviewed chart discussed labs with pt r/t diuretic - will extend lasix & k+ x 5 days - cont care plan as discussed in visit yesterday r/t coumadin - family is managing coumadin -referred to coumadin clinic per pt PCP already called and addressed INR today finally - pt states flexeril Rx didn't go through to pharmacy - asking for it to be resent discussed will defer flexeril to Delfina - pt agreeable Please review/advise r/t flexeril - Thank you! documented in this encounterKettering Health [facility] Center07-01-2025 Telephone encounter Note * Telephone Encounter - Sara Pedraza APRN.CNP - 01/08/2025 12:35 PM EDT pt called states was to have a water pill after labs were back & he saw labs were back this conventional underwriter reviewed chart discussed labs with pt r/t diuretic - will extend lasix & k+ x 5 days - cont care plan as discussed in visit yesterday r/t coumadin - family is managing coumadin -referred to coumadin clinic per pt PCP already called and addressed INR today finally - pt states flexeril Rx didn't go through to pharmacy - asking for it to be resent discussed will defer flexeril to Delfina - pt agreeable Please review/advise r/t flexeril - Thank you! [facility]06-30-2025 Instructions* Patient Instructions* Delfina Chaney PA-C - 01/07/2025 11:12 AM EDT Images from the original note were not included. Follow up with primary care doctor in 1-2 weeks and to reassess pulmonary status, anemia, chemistries with a CXR, CMP, CBC. Follow up with conduit installer in 6-8 weeks. 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 [facility] [place] Joseline Powers Department of Cardiovascular Medicine DEPARTMENT OF CARDIAC SURGERY OUTPATIENT VISIT DATE January 07, 2025 OUTPATIENT VISIT TYPE POSTOPERATIVE Luisito Zhong is a 44 year old male who presents who is here for post operative follow up HPI: S/P on 12/25/2024: Redo Sternotomy, Mechanical Bentall ([address] Composite Graft) Surgeon: Dr Arias Discharged on [...] clean since 06/21/2018. Went to treatment at [facility] for 9 months Mitral regurgitation Murmur Rotator [...] and intact, no cellulitis Wound: NA SV Tavernier sites: NA Radial Artery Tavernier site: NA Procedures: Sutures removed from chest tube sites without difficulty. IMPRESSION & PLAN: -S/P on 12/25/2024: Redo Sternotomy, Mechanical Bentall ([address] Composite Graft) Surgeon: Dr Arias Discharged on [...] a CXR, CMP, CBC. Follow up with conduit installer in 6-8 weeks. Follow up w/ Dr. Arias in 3 months w/ CTA (requested) -Junctional rhythm post op rate 50-60s after starting metoprolol. Today NSR Plan: no BB d/t junctional rhythm after starting BB as above. 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 Small/mod left pleural effusion slightly increased compared with CXR from12/30. 108.5Kg 12/25/2024 110.5Kg 01/07/25 Plan: follow CXR and CMP results. -DM type 1. HGA1C: 6.7 Insulin pump [place]. Summary: Post op care and discharge orders [...] phone, left message on answering machine and Keelr. Latest Reference Range & Units 01/07/25 10:28 [...] PA-C 01/08/2025 1:31 PM documented in this encounterKettering Health Behavioral Medical Center06-23-2025 [facility]06-23-2025 NoteGood [facility]06-23-2025 NoteGood [facility]06-23-2025 [facility]Good [facility]06-22-2025 Note [facility]06-21-2025 [facility]Good [facility]06-21-2025 NoteGood [facility]06-21-2025 [facility] 12-28-2024 History of Present illness Narrative* Jared Alfonso MD - 12/28/2024 12:00 PM EDT documented in this encounterKettering Health Behavioral Medical Center06-20-2025 NoteHNO ID: [id number] Author: JARED ALFONSO MD Service: ? Author Type: Physician Type: Progress Notes Filed: 12/28/2024 12:01 Note Text:[facility]06-20-2025 [facility]Good [facility] 12-27-2024 NoteGood [facility]06-18-2025 NoteGood [facility]06-17-2025 NoteGood [facility]06-17-2025 History of Present illness Narrative* Kathryn Villalba, Research Coordinator - 12/25/2024 6:47 PM EDT Images from the original note were not included. IRB : [employer] Fvvjs-gq-Vqzs Hemostasis Monitoring and Perioperative Blood and Blood ComponentTransfusion during High-Risk Complex Cardiac Surgery: A Randomized Clinical Trial PI: María Elena Barry MD On December 25, 2024, we collected 2.7 cc of blood from Luisito Zhong on ICU arrival. The sample was processed by [employer]. The results showed: According to the protocol study, the following treatment Platelets was suggested as outlined below: Kathryn Villalba Clinical Research Fellow Anesthesiology Research [facility] documented in this encounterKettering Health Behavioral Medical Center06-17-2025 [facility]06-17-2025 NoteGood [facility]aritan Hospital06-17-2025 History of Present illness Narrative* Stacia Pryor Research Coordinator - 12/25/2024 12:20 PM EDTSummary: IRB : [employer] Ncsdn-vp-Wgqb Hemostasis Monitoring and Perioperative Blood and Blood Component Transfusion during High-Risk Images from the original note were not included. IRB : [employer] Owxvr-fu-Haqm Hemostasis Monitoring and Perioperative Blood and Blood ComponentTransfusion during High-Risk Complex Cardiac Surgery: A Randomized Clinical Trial PI: María Elena Barry MD On December 25, 2024, we collected 2.7 cc of blood from Luisito S Farheen per study protocol 10-20 minutesafter protamine administration. The sample was processed by [employer]. The results showed: According to the protocol study, platelets and cryoprecipitate was suggested as outlined below: Stacia Pryor Research Coordinator Clinical Research Fellow [facility] documented in this encounterKettering Health Behavioral Medical Center06-17-2025 NoteGood Samaritan Hospital06-17-2025 History of Present illness Narrative* Stacia Pryor Research Coordinator - 12/25/2024 11:42 AM EDTSummary: IRB : [employer] Zquwi-cu-Ovsl Hemostasis Monitoring and Perioperative Blood and Blood C omponent Transfusion Images from the original note were not included. IRB : [employer] Nqnri-va-Zcau Hemostasis Monitoring and Perioperative Blood and Blood ComponentTransfusion during High-Risk Complex Cardiac Surgery: A Randomized Clinical Trial PI: María Elena Barry MD On December 25, 2024, we collected 2.7 cc of blood per protocol from Luisito Zhong 15 minutes before separation from cardiopulmonary bypass. The sample was processed by [employer]. The results showed: According to the protocol study,platelets and cryoprecipitate was suggested as outlined below: Stacia Pryor Research Coordinator Clinical Research Fellow [facility] documented in this encounterKettering Health Behavioral Medical Center06-17-2025 NoteGood Samaritan Hospital06-17-2025 History of Present illness Narrative* Stacia Pryor Research Coordinator - 12/25/2024 11:27 AM EDTSummary: IRB : [employer] Vmtqr-vy-Lwwb Hemostasis Monitoring and Perioperative Blood and Blood C omponent Images from the original note were not included. IRB 24: [employer] Oeaye-up-Jtsu Hemostasis Monitoring and Perioperative Blood and Blood ComponentTransfusion during High-Risk Complex Cardiac Surgery: A Randomized Clinical Trial PI: María Elena Barry MD On December 25, 2024, we collected 2.7cc of baseline blood from the patient Luisito Zhong per protocolat time point between induction and incision. The sample was processed by [employer]. The resultsare showed below: Stacia Pryor Research Coordinator Clinical Research Fellow [facility] documented in this encounterKettering Health Behavioral Medical Center06-17-2025 NoteGood [facility]aritan Hospital06-17-2025 NoteGood [facility]aritan Hospital06-17-2025 NoteGood [facility] Hospital06-17-2025 NoteGood [facility]aritan Hospital06-17-2025 History of Present illness Narrative* Stacia Pryor, Research Coordinator - 12/25/2024 7:14 AM EDTSummary: study IRB#: [id number]: [employer] Mfcyq-dr-Qxzr Hemostasis Monitoring and Perioperative Blood and Blood Component Transfusion during High-Risk Complex Team Communication Regarding Research Enrollment This is a research study note. Patient assessments recorded here should not guide either Clinical care or clinical decision-making The research team and PI have communicated with the care team regarding the patient Luisito Zhong and their participation in the study IRB#: [id number]: [employer] Pqrsb-qp-Puqz Hemostasis Monitoring and Perioperative Blood and Blood Component Transfusion during High-Risk Complex Cardiac Surgery: A Randomized Clinical Trial. The team is aware of the study intervention and the study team's assessment for eligibility per [facility] IRB approved protocol. The team is aware that the patient is to be monitored for any adverse events for the extent of their participation in this study and that the discovery of events or any concerns are to relayed to the [facility] study PI María Elena Barry MD. Specific [...] study. I, along with the [facility] [place], thank the entire clinicalcare team for your [...] and Comprehension: Patient is able to understand Grenadian as a first language and can comprehend the study and/or consent forms. 8. Vulnerable Populations: Patient does not fall under vulnerable populations, including prisoners,human fetuses, and neonates. Stacia Pryor, Research Coordinator Research Fellow [facility]esthesiology [facility] [place] [facility] documented in this encounterKettering Health Behavioral Medical Center06-15-2025 Telephone encounter Note * Telephone Encounter - [...] Salinas RN, RN. In Department of CARDIOLOGY. [facility]06-15-2025 Miscellaneous Notes* Telephone Encounter - Sendy Salinas [...] Salinas RN, RN. In Department of CARDIOLOGY. documented in this encounterKettering Health Behavioral Medical Center06-14-2025 NoteGood [facility]aritan Hospital06-12-2025 NoteGood [facility]aritan Hospital06-12-2025 History of Present illness Narrative* Kacie Smith [...] for upcoming scheduled surgery. documented in this encounterKettering Health Behavioral Medical Center06-12-2025 NoteGood Samaritan Hospital06-12-2025 History of Present illness Narrative* Dulce Maria Orosco, - 12/20/2024 1:32 PM EDT Cardiothoracic Anesthesiology [...] Frequency changed to Never by Sruthi Ambrosio APRN.AMBULANCE ATTENDANT (Patient Preference) 11/05/2020 Imm Admin: COVID-19 original [...] clean since 06/21/2018. Went to treatment at [facility] for 9 months Mitral regurgitation Murmur Rotator [...] AM Impression IMPRESSION: No acute radiographic abnormality. Cage Cashier: [facility]ERYvonne Transcribe Date/Time: Dec 19 2024 2:34P Dictated [...] leaflet calcification. Status post tricuspid valve repair. Cage Cashier: [facility] Transcribe Date/Time: Nov 21 2024 10:02A Dictated [...] enteric tube terminates within the proximal stomach. Cage Cashier: PSCB Transcribe Date/Time: Feb 07 2024 7:11A Dictated by : RICHADR GARCIAS MD This examination was interpreted and [...] and consent discussed: yes. Patient / Responsible Libertarian agrees to proceed: yes Patient / Surrogate [...] 1:32 PM Pager/Contact #: documented in this encounterKettering [facility]06-12-2025 NoteGood Samaritan Hospital06-12-2025 History of Present illness Narrative* Kacie Smith [...] clean since 06/21/2018. Went to treatment at [facility] for 9 months Mitral regurgitation Murmur Rotator cuff syndrome 06/18/2015 Subaortic membrane (HCC) with stenosis Tetrahydrocannabinol (THC) use disorder, mild, in sustained remission, in controlled environment, abuse Type 1 diabetes mellitus with diabetic polyneuropathy ([facility]) PAST SURGICAL HISTORY Procedure Laterality Date HIP [...] Dental Clearance cleared DERM: Denies Dermatological Complaints ALFALFA DEHYDRATOR OPERATOR: Denies Neurological Complaints RESP: currently tobacco use [...] leaflet calcification. Status post tricuspid valve repair. Cage Cashier: BOYD Transcribe Date/Time: Nov 21 2024 10:02A Dictated by : JAMSHID SMITH MD This examination was interpreted and the report reviewed and electronically signed by: JAMSHID SMITH MD on Nov 21 2024 10:13AM EST MRI: na CXR: XR CHEST 2V FRONTAL/LAT Result Date: 12/19/2024 IMPRESSION: No acute radiographic abnormality. Cage Cashier: PSCB Transcribe Date/Time: Dec 19 2024 2:34P Dictated by : CARO ESPÑAA MD This examination was interpreted and the [...] and Physical dated 12/20/2024 documented in this encounterKettering Health Behavioral Medical Center06-12-2025 History of Present illness Narrative* Jt King MD - 12/20/2024 9:15 AM EDT Images from the original note were not included. [facility] [place] Joseline Powers Department of Cardiovascular Medicine SECTION OF CLINICAL CARDIOLOGY OUTPATIENT VISIT DATE December 19, 2024 OUTPATIENT VISIT TYPE NEW PRIMARY CARE PHYSICIAN: Sruthi Ambrosio [facility] [place] [address] REFERRING PHYSICIAN: Roscoe Arias [address] [facility] [address] CHIEF COMPLAINT: Preoperative cardiac evaluation HISTORY OF [...] is a 44 year old male from [place], [place] here today for cardiovascular evaluation related [...] and depression 04/04/2019 Cocaine abuse in remission ([facility]) last used 10/17/2014 Ex-smoker Ex-smoker Started at the age of 15 up to 1 PPD and quit 07/2018 Frozen shoulder 03/12/2014 History of drug abuse (HCC) 04/04/2019 Cocaine and marijuana. Has been clean since 06/21/2018. 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 Tetrahydrocannabinol (THC) use disorder, mild, in sustained remission, in controlled environment, abuse Type 1 diabetes mellitus with diabetic polyneuropathy ([facility]) PAST SURGICAL HISTORY Procedure Laterality Date HIP [...] leaflet calcification. Status post tricuspid valve repair. Cage Cashier: PSCB Transcribe Date/Time: Nov 21 2024 10:02A Dictated [...] restrictions. CONTACT INFORMATION: Jt King M.D, MPH, [facility] Abundio and Constance Powers Department of Cardiovascular Medicine [facility] [place] [facility] Desk J2-[address] [place] [address] Office Office Appointments: [phone] documented in this encounterKettering Health Behavioral Medical Center06-12-2025 NoteGood Samaritan Hospital06-11-2025 NoteHNO ID: [id number] Author: JOCELYNE STILL MA Service: ? Author Type: Fixture Designer Type: Procedures Filed: 12/19/2024 15:53 Note Text:[facility]06-11-2025 Procedure note* Jocelyne Still MA - 12/19/2024 1:26 PM EDTProcedure(s): EXTERNAL CLOTH BOLT BANDER, CGM SYS Images from the original note were not included. [facility]06-11-2025 Procedure note* Jocelyne Still MA - 12/19/2024 1:26 PM EDTProcedure(s): EXTERNAL CLOTH BOLT BANDER, CGM SYS Images from the original note were not included. documented in this encounterKettering Health Behavioral [facility] Center06-11-2025 NoteGood Samaritan Hospital06-11-2025 History of Present illness Narrative* Crow Joseph MD - 12/19/2024 1:14 PM EDT Images from the original note were not included. [facility] CONSULT/NEW PATIENT SERVICE DATE: 12/19/24 My final recommendation will be communicated back to the requesting physician by way of shared medical record (or letter via US mail when appropriate) REFERRING PROVIDER Roscoe Arias [address] [facility] [address] Patient Info Patient Name Sex Luisito Zhong ([id number]) Male 1980 Weight Most recent update: 12/19/2024 [...] PRESENT ILLNESS Unless stated otherwise Recording using Smartdate software for draft documentation of the visit was discussed with the patient/authorized community health program representative; all questions welcomed and answered. Patient/authorized community health program representative agreed to proceed Luisito Zhong is [...] valve placement. Luisito has not seen an synoptic meteorologist for 4-5 months and is awaiting A1c [...] rash Labs: Reviewed available data Latest Ref [facility] 12/19/2024 WBC 3.70 - 11.00 k/uL 6.43 [...] Abs Lymph 1.00 - 4.00 k/uL 2.15 Kidder% % 10.0 Abs Kidder <0.87 k/uL 0.64 Eosin% % 4.7 Abs [...] currently using a Medtronic insulin pump with SmartStockUp technology. Recent glucose sensor reports show a [...] to surgery. - Recommended consultation with a pipeline controller to optimize diet, especially considering upcoming Coumadin [...] control. - Recommended regular follow-up with a pipeline controller to develop a sustainable weight management plan. [...] any questions, please send a message through [employer] or call our clinic at [phone] Thank you for the opportunity to participate in the care of this patient FOR INPATIENT PLAN REFERRAL TO INPATIENT ENDOCRINOLOGY AND NUTRITION ESTABLISH CARE OUTPATIENT - PT REPORTED WILL SEE ERIKA Desai BUT IS NOT LISTED IN FUTURE ENCOUNTERS YET I spent a total of 55 minutes on the date of the service which included preparing to see the patient, iiek-fr-kpga patient care, completing clinical documentation, obtaining and/or reviewing separately obtained history, performing a medically appropriate examination, counseling and educating the pat ient/family/caregiver, ordering medications, tests, or procedures, and care coordination (not separately reported). documented in this encounterKettering Health Behavioral Medical Center06-11-2025 Instructions* Patient Instructions* Crow Joseph MD - 12/19/2024 12:47 PM EDT Thank you for choosing the [facility] Department of Endocrinology, Diabetes and Metabolism. Did you know that you need to call 48 hours in advance of your scheduled visit, if you are unable to make your appointment? The [facility] [place] thanks you for your commitment, because patients not showing to their appointment results in a lost opportunity for patients to receive cook hospital health care at the [facility]. To Cancel an appointment, please choose one of the following: - Call the Appointment Call Center at [phone] - From [facility], Go to Appointments - Cancel Appts If cancelling, consider your need to reschedule to prevent further delays in your care. To Schedule an appointment, please choose one of the following: - Call the Appointment Call Center at [phone] - From [facility], Go to Appointments - Request an Appt [...] sugar. - Work with the hospital s pipeline controller post-surgery to develop a diet plan that [...] hospital stay. - Continue working with your synoptic meteorologist, Dr. Kristal Mcarthur, for ongoing diabetes management after surgery. - If you have any questions or concerns about your diabetes management or surgery preparation, please contact our office. documented in this encounterKettering Health Behavioral Medical Center06-11-2025 History of Present illness Narrative* Prieto Caro [...] PATIENT PRESENTS WITH AN IMPLANTABLE OR ATTACHED BORING MACHINE OPERATOR DOUBLE END: No RADIOLOGY DEPARTMENT: General X-ray: Exam(s) Completed: Chest X-Ray PERIPHERAL IV DATA: Not applicable SIGNED BY: RT Hellen([place]st) December 19, 2024 11:57 AM documented in this encounterKettering Health Behavioral [facility] Center06-11-2025 NoteGood Samaritan Hospital06-05-2025 Radiology Diagnostic study note [facility] Imaging Services [address] [place] [place] [address] [id number] Cerv Spine 4 or 5 Views MR#: [id number] Acct: [id number] Name: LUISITO ZHONG Rep #: [id number] : 1980 M 44 From: Mary Angel MD PCP: ROSCOE UMANZOR Status: REG CLI Study:Cerv Spine 4 or 5 Views Date of Exam: 12/12/24 Exam# [id number] Ordering Dr: Olga Mujica MD PROCEDURE: CERV SPINE 4 OR 5 VIEWS 12/12/2024 REASON FOR EXAM: NECK AND R ARM PAIN TECHNIQUE: 6 views of the cervical spine. COMPARISON: None FINDINGS: Vertebral body heights are maintained. There is straightening of the normal cervical lordosis. Zhjj-su-hraxnfha multilevel disc height loss, endplate osteophyte formation, with uncovertebral and facet arthropathy. These changesare worst at C6-7 where there is at least mild osseous neural foraminal narrowing bilaterally. The odontoid view is unremarkable. Median sternotomy wires are partially imaged. RAD/Cerv Spine 4 or 5 Views IMPRESSION: 1. Rhmw-wa-kijscgwy degenerative changes of the cervical spine, worst at C6-7. 2. Straightening of the normal cervical lordosis may be related to pain, positioning, or spasm Reading Location: [id number] CC: Dr. Freddy Mujica MD; ROSCOE UMANZOR ~ Cage Cashier: Signed [facility]05-30-2025 Telephone encounter Note* Telephone Encounter - Schuyler Louis - 12/07/2024 9:54 AM EDT Patient called stating that he had CHANDA ext done by another provider. Ext appointment has been canceled. [facility]05-30-2025 Miscellaneous Notes* Telephone Encounter - Schuyler Louis - 12/07/2024 9:54 AM EDT Patient called stating that he had CHANDA ext done by another provider. Ext appointment has been canceled. documented in this encounterKettering Health [facility] Center05-27-2025 Telephone encounter Note * Telephone Encounter - Schuyler Louis - 12/04/2024 9:13 AM EDT Patient called to see if there was a sooner appointment available for his extractions, no sooner appointment was available. [facility]05-27-2025 Miscellaneous Notes* Telephone Encounter - Schuyler Louis - 12/04/2024 9:13 AM EDT Patient called to see if there was a sooner appointment available for his extractions, no sooner appointment was available. documented in this encounterKettering Health [facility]al Medical Center05-23-2025 History of Present illness Narrative* Rehana Aviles, DMD - 11/30/2024 10:29 AM EDT Images from the original note were not included. [facility] [place] [facility] CHIEF [...] UNITS SUBCUTANEOUSLY ONCE DAILY blood sugar diagnostic (ONETOUCH ULTRA TEST) test [...] mouth once daily. Blood-Glucose Meter,Continuous (DEXCOM G7 CLOTH BOLT BANDER) misc 1 Each five times a day. (Patient not taking: Reported on 02/03/2024) insulin lispro (HUMALOG U-100 INSULIN) 100 unit/mL injection Inject up to 90 units per day via insulin pump. Blood-Glucose Sensor (DEXCOM G6 SENSOR) xenia Apply new sensor every ten (10) days to abdomen. Blood-Glucose Meter,Continuous (DEXCOM G6 CLOTH BOLT BANDER) misc Use to check blood sugar at [...] (Patient not taking: Reported on 02/03/2024) Insulin [place], Disposable, (BD ULTRAFINE III MINI PEN) 31 [...] (FLONASE) 50 mcg/actuation nasal spray Use 1 [place] in the nose once daily as needed. [...] Soft Tissues: Clear saliva extruded from bilateral Clarion's and Ronna's ducts. Tongue soft and non-tender [...] record. Rehana Aviles DMD documented in this encounterKettering Health [facility] Center05-23-2025 NoteGood [facility]aritan Hospital05-15-2025 Telephone encounter Note* Telephone Encounter - Kingston Fraire - 11/22/2024 12:36 PM EDT IN [facility] Work Phone: [phone] Miscellaneous Notes* Telephone Encounter - Kingston Fraire - 11/22/2024 12:36 PM EDT IN * Telephone Encounter - Betty Ovalles - 11/22/2024 11:09 AM EDT Insurance Card(s) scanned into [employer] Please register/advise Thank You! documented in this encounterKettering Health Behavioral [facility] Center05-15-2025 Telephone encounter Note * Telephone Encounter - Betty Ovalles - 11/22/2024 11:09 AM EDT Insurance Card(s) scanned into [employer] Please register/advise Thank You! [facility]05-13-2025 NoteGood [facility]aritan Hospital05-13-2025 History of Present illness Narrative* Roscoe Arias MD - 11/20/2024 4:57 PM EDT Thoracic and Cardiovascular Surgery [facility] CARDIOTHORACIC CLINIC NOTE CHART COPY DO NOT DISCARD Patient Type: Established Visit to determine Surgery: No PCP: Sruthi Ambrosio [address] [place] [address] Referring Physician:: Roscoe Arias [address] [facility] [address] Mr. Luisito Zhong returns to clinic today [...] mail. Roscoe Arias MD documented in this encounterKettering Health Behavioral Medical Center05-13-2025 Nurse Note* Karen Robin RN - 11/20/2024 [...] By Karen Robin RN In Department: CARDIOLOGY [facility]05-13-2025 Nurse Note* Karen Robin RN - 11/20/2024 [...] RN In Department: CARDIOLOGY documented in this encounterKettering Health Behavioral Medical Center05-13-2025 History of Present illness Narrative* Haylee Lee [...] PATIENT PRESENTS WITH AN IMPLANTABLE OR ATTACHED BORING MACHINE OPERATOR DOUBLE END: No RADIOLOGY DEPARTMENT: CT; Exam(s) Completed: Cardiac [...] PATIENT PRESENTS WITH AN IMPLANTABLE OR ATTACHED BORING MACHINE OPERATOR DOUBLE END: No RADIOLOGY DEPARTMENT: CT; Exam(s) Completed: Cardiac PERIPHERAL IV DATA: Site assessment: Clean,Dry and Intact, Site disposition Discontinued SIGNED BY: RT Kymberly(Forest) November 20, 2024 1:03 PM documented in this encounterKettering Health Behavioral [facility] Center05-13-2025 NoteGood [facility]aritan Hospital05-13-2025 NoteGood [facility]aritan Hospital05-13-2025 NoteGood [facility]aritan Hospital05-06-2025 Telephone encounter Note* Telephone Encounter - Marina [...] Marina Barrientos RN. In Department of CARDIOLOGY. [facility]05-06-2025 Miscellaneous Notes* Telephone Encounter - Marina Barrientos [...] In Department of CARDIOLOGY. documented in this encounterKettering Health Behavioral Medical Center02-14-2025 History of Present illness Narrative* Erin Morris MD - 08/24/2024 9:30 AM EST [facility] Cardiology Note Assessment and Plan: # LVOT gradient # Subaortic membrane: Surgical resection x2 (2021), with AVR at the second surgery in 2021 due to leaflet encroachment by the membrane. He is re-presenting with dyspnea and an echo done at [facility] that reports elevated gradients (30 mmHg) across [...] with Dr. Arias, his cardiac surgeon at [facility] and I think what makes sense at this time is for him to have the imaging done at [facility] as they have planned; if he were [...] of Dr. Perez who is presenting [facility]. He has a complexhistory of subaortic membrane. Underwent first surgery for resection of LVOT obstructive subaortic membrane 12/20/2018, the procedure was performed by Dr. Cabrera and Dr. Estevez. Unfortunately, not long after this surgical intervention, he had recurring symptoms. Repeat workup, including TTE, LAWSON andCMR demonstrated recurrent subaortic membrane. [facility], and ultimately underwent repeat surgical intervention on [...] Still have not received echo images from [facility] from last month, but did review the [...] , Rfl: cholecalciferol (Vitamin D-3) 50 MCG (2000 UT) tablet, Take 1 tablet by mouth [...] Problems Father No Known Problems Mother Other ([id number]) Sister MS Heart disease Paternal Grandmother Social History Social History Tobacco Use Smoking status: Every Day Current packs/day: 0.50 Types: Cigarettes Smokeless tobacco: Never Substance Use Topics Alcohol use: Not Currently Drug use: Yes Types: Cocaine Comment: few slips ups recently Erin Morris MD Cardiology [facility] [place] [address] [place] [address] [place] [phone] p [phone] f [phone] I spent a total time of 30 [...] appropriate exam and/or evaluation documented in this encounterSMercy Health St. [facility] [id number] Telephone encounter Note* Telephone Encounter - Betty [...] visitwith him in November of this year, [facility]02-07[facility] Miscellaneous Notes* Telephone Encounter - Betty Ovalles [...] November of this year, documented in this encounterKettering Health Behavior[facility] Center02-07-2025 Telephone encounter Note * Telephone Encounter - Josselyn Rausch RN - 08/17/2024 1:[address] Arias requesting follow-up appointments in six months after completion of his virtual visit with the patient on 08/15. Will proceed with scheduling process. [facility]02-07-2025 Miscellaneous Notes* Telephone Encounter - Josselyn Rausch RN - 08/17/2024 1:[address] Arias requesting follow-up appointments in six months after completion of his virtual visit with the patient on 08/15. Will proceed with scheduling process. documented in this encounterKettering Health Behavioral Medical Center02-05-2025 NoteGood Samaritan Hospital02-05-2025 History of Present illness Narrative* Roscoe Arias MD - 08/15/2024 12:51 PM EST Thoracic and Cardiovascular Surgery [facility] CARDIOTHORACIC CLINIC NOTE CHART COPY DO NOT DISCARD Patient Type: Established Visit to determine Surgery: No PCP: Sruthi Ambrosio [facility] [place] [address] Referring Physician:: No referring provider defined for [...] SVR of AV Plan: LAWSON here at [facility] in next 6 months. I spent more than 50% of the visit face to face counseling the patient on the plan and treatment options. The time spent counseling was 20 minutes. The total time of the face to face visit was 20 minutes. These findings will be communicated back to the requesting physician via mail. Roscoe Arias MD documented in this encounterKettering Health Behavioral Medical Center01-28-2025 History of Present illness Narrative* Erin Morris MD - 08/07/2024 2:54 PM EST Called patient to review echo. The echo comments on elevated gradients across the LVOT. He recently had subaortic membrane resection and SAVR at [facility] in 2021- it would be relatively unusual for progression of PrAV stenosis at this time point, which raises suspicion for either LVOT obstruction via hypertrophy or recurrence of membrane. Will obtain echo images from [facility], and plan either LAWSON/MRI. Mr. Zhong reports some slowly increasing exertional limitation. He has reached out to his surgeon at [facility], Dr. Fuentes as well. documented in this [facility]11-04-2024 History of Present illness Narrative* Luz [...] Problems Father No Known Problems Mother Other ([id number]) Sister MS Heart disease Paternal Grandmother Social [...] right upper sternal border. I performed a akodo-bq-lraa cardiac ultrasound I did not get a [...] his medications the only testing was a xistv-pn-unhi echo in the office and I ordered a formal echocardiogram to get a better view of his prosthesis. He will likely, since based on my near snf, follow-up with a conduit installer in [place]. Certainly will forward him all this information. Luz Maria Perez MD 05/14/2024 6:54 AM In preparation for this encounter, we have personally reviewed pertinent lab work, imaging, and cardiac testing. documented in this [facility]10-21-2024 Telephone encounter Note* Telephone Encounter - Valeria Hare - 04/30/2024 11:02 AM EDT 1st Attempt Called but number said there are calling restrictions and won't allow the call to go through. Left a vm on [employer]'s phone (listed as a contact) to call if she has any new contact info for patient. Told her she can ask to be transferred to the [employer] front desk admin. Valeria Hare April 30, 2024 11:02 AM [facility]10-21-2024 Miscellaneous Notes* Telephone Encounter - Valeria Hare - 04/30/2024 11:02 AM EDT 1st Attempt Called but number said there are calling restrictions and won't allow the call to go through. Left a vm on [employer]'s phone (listed as a contact) to call if she has any new contact info for patient. Told her she can ask to be transferred to the [employer] front desk admin. Valeria Hare April 30, 2024 11:02 AM * Telephone Encounter - Anita Dan - 04/30/2024 10:09 AM EDT Received a fax form [employer] for pts diabetes supplies. Pt has not been seen in over a year, need appointment. Anita Dan documented in this encounterKettering Health Behavioral [facility] Center10-21-2024 Telephone encounter Note * Telephone Encounter - Anita Dan - 04/30/2024 10:09 AM EDT Received a fax form [employer] for pts diabetes supplies. Pt has not been seen in over a year, need appointment. Anita Dan [facility]10-02-2024 Hospital Discharge instructions Patient Education 04/11/2024 04:39:57 [...] keep having episodes of high blood sugar. [phone] [employer]. [address] [place] [address]. All rights reserved. This information is not intended as a substitute for professional medical care. Always follow yourhealthcare professional's instructions. Follow Up Care 04/11/2024 00:37:27 With:SRUTHI AMBROSIO Address: [address] [place] [phone] When:2-4 days [facility] 10-02-2024 Emergency department Discharge summary Discharge Instructions Thank you for allowing [facility] to assist you with your healthcare needs. The following is importantdischarge information regarding your hospital visit. Diagnosis from Today's Visit Hyperglycemia What to Do Next Instructions from Your Care Team No qualifying data available. Post Acute Orders No qualifying data available. You Need to Schedule the Following Appointments Follow Up with SRUTHI AMBROSIO When:Within 2-4 days Where:[address] [place] [phone] Allergies Dilaudid traMADol Medications Please ask your [...] keep having episodes of high blood sugar. [phone] [employer]. [address] [facility], [place] [address]. All rights reserved. This information is not intended as a substitute for professional medical care. Always follow yourhealthcare professional's instructions. Additional Information VACCINATE! IT SAVES LIVES! Members of the community who have not yet received the COVID-19 vaccine and would like to receive it can visit one of [facility] vaccine clinics. There are many vaccine clinic locations within the State. For locations and available times, please visit www.gettheshot.coronavirus.[place].gov/. It is important to note that some COVID mobile vaccine clinics are held outdoors and may be canceled in rainy or stormy conditions. To learn more about pediatric vaccinations (ages 5-11), we invite you to visit the [employer] [facility] webpage. https://www.[employer].org/pages/4667-Oulcp-Plmonkrmtgx-Mtomtdkwyv-Fhzug-Swy stions.htmlTo learn more about the COVID-19 vaccine, we invite you to visit the CDC website for a list of frequently asked questions. https://www.cdc.gov/coronavirus/2019-ncov/vaccines/faq.html [employer] Patient Portal Access Instructions: Stay connected with your healthcare team and access your personal medical information anytime with the [employer] Patient Portal. If you would like a full copy of your medical records please contact the [facility] Medical Records Department Tuesday through Tuesday between 8a.m. and 4:30p.m. Please follow the directions below to access the portal: 1.Access the email account you provided upon registration to the hospital.2.Look for an invitation email from [facility].3.Open the email and access the invitation link: Accept Invitation to [employer]4.Fill in the required sy to create your account. Sign into www.[email or web address] with your username and password that you [...] you will allow to register on the [employer] Patient Portal for access to your information. You can also access the [employer] Patient Portal on the [employer] efe. Simply click on Health Records under [employer] and then click on the [employer] logo. HOW TO SAFELY DISPOSE OF PRESCRIPTION [...] Call your local pharmacy or go to [email or web address] to find one close to you.3.Make use of household items: Use cat litter or old coffee grounds to dispose medications if other options arenot available. Mix your drugs with these household products, seal them in an airtight container andthrow it into the garbage. Call [facility]: [phone] to be sure your drugs can be [...] aware that I should contact my doctor. Patient/Ski Patroller Signature: Date/Time: Relationship to Patient: Witness Name/Signature: Date/Time: [id number] Note ORIGINAL EXAMINATION: THREE XRAY VIEWS OF [...] Date: 04/11/2024 4:01:12 AM Ordering Provider: [id number] Hospital Discharge instructions Patient Education 04/06/2024 08:58:22 [...] with your healthcare provider for more information. [phone] [employer]. [address] [place] [address], [place] [address]. All rights reserved. This information is not intended as a substitute for professional medical care. Always follow yourhealthcare professional's instructions. Follow Up Care 04/06/2024 04:36:51 With:Please call your conduit installer today to set up an appointment Address:Unknown When:2-4 days Comments:Schedule appointment as soon as possibleReturn to ED if symptoms worsenCall today for follow-up appointmentFollow-up for outpatient echocardiogram and vascular studies of your neckIncrease fluidsTry to stop cocaineReturn for any worsening symptoms With:SRUTHI AMBROSIO Address: [address] [place] [phone] When:2-4 days [facility] 09-27-2024 Emergency department Discharge summary Discharge Instructions Thank you for allowing [facility] to assist you with your healthcare needs. The following is importantdischarge information regarding your hospital visit. Diagnosis from Today's Visit Cocaine misuse Headache What to Do Next Instructions from Your Care Team Please call your conduit installer to schedule an appointment. If your symptoms worsen, please return [facility] ER. Make sure to increase your fluids No qualifying data available. Post Acute Orders No qualifying data available. You Need to Schedule the Following Appointments Follow Up with Please call your conduit installer today to set up an appointment When:Within 2-4 days Additional Information: Schedule appointment as soon as possible Return to ED if symptoms worsen Call today for follow-up appointment Follow-up for outpatient echocardiogram and vascular studies of your neck Increase fluids Try to stop cocaine Return for any worsening symptoms Follow Up with SRUTHI AMBROSIO When:Within 2-4 days Where:[address] [place] [phone] Allergies Dilaudid traMADol Medications Please ask your [...] with your healthcare provider for more information. 3235-1989 [employer]. [address] [place] [address]. All rights reserved. This information is not intended as a substitute for professional medical care. Always follow yourhealthcare professional's instructions. Additional Information VACCINATE! IT SAVES LIVES! Members of the community who have not yet received the COVID-19 vaccine and would like to receive it can visit one of [facility] vaccine clinics. There are many vaccine clinic locations within the [facility]. For locations and available times, please visit www.gettheshot.coronavirus.[place].gov/. It is important to note that some COVID mobile vaccine clinics are held outdoors and may be canceled in rainy or stormy conditions. To learn more about pediatric vaccinations (ages 5-11), we invite you to visit the [facility] webpage. https://www.[facility].org/pages/2685-Ijphj-Gmogavndnhf-Wvoeyuvpxd-Jldwm-Xmq stions.htmlTo learn more about the COVID-19 vaccine, we invite you to visit the CDC website for a list of frequently asked questions. https://www.cdc.gov/coronavirus/2019-ncov/vaccines/faq.html [facility] [employer] Patient Portal Access Instructions: Stay connected with your healthcare team and access your personal medical information anytime with the [employer] Patient Portal. If you would like a full copy of your medical records please contact the [facility] Medical Records Department Tuesday through Tuesday between 8a.m. and 4:30p.m. Please follow the directions below to access the portal: 1.Access the email account you provided upon registration to the [facility].2.Look for an invitation email from [facility].3.Open the email and access the invitation link: Accept Invitation to [employer] [facility]4.Fill in the required sy to create your account. Sign into www.[email or web address] with your username and password that you [...] you will allow to register on the [employer] Patient Portal for access to your information. You can also access the [employer] Patient Portal on the [employer]. Simply click on Health Records under [employer] and then click on the [employer] logo. HOW TO SAFELY DISPOSE OF PRESCRIPTION [...] Call your local pharmacy or go to http://[email or web address] to find one close to you.3.Make use of household items: Use cat litter or old coffee grounds to dispose medications if other options arenot available. Mix your drugs with these household products, seal them in an airtight container andthrow it into the garbage. Call [facility]: [phone] to be sure your drugs can be [...] been reviewed and explained to me and I,FARHEEN LUISITO Shelli understand my current condition and have read and understand these discharge instructions. I have received a written copy of the plan/instructions. If I have questions, I am aware that I should contact my doctor. Patient/Ski Patroller Signature: Date/Time: Relationship to Patient: Witness Name/Signature: Date/Time: [facility] [id number] NoteSINUS RHYTHM LEFT ATRIAL ENLARGEMENT SEE DICTATION Electronic Signature: ROMAN FERNÁNDEZ MD 04/06/2024 08:[facility] Note ORIGINAL EXAMINATION: ONE XRAY [...] Date: 04/06/2024 5:08:54 AM Ordering Provider: ROSCOE MAHERLima City [id number] Nurse Progress note Pt is in room making calls to [employer] to set up a ride for continuation of care to detox. Digitally Signed by Bernice Pineda LPN on 03/29/2024 11:18 AM [facility] [id number] Hospital Discharge instructions Patient Education 03/29/2024 08:00:57 [...] car or at home) Arrest, conviction, and custodial sentence for possession of an illegal substance [...] of the resources below for help: National [place] on Alcoholism and Drug Dependence 255-248-ACPY www.ncadd.org Narcotics Anonymous www.na.org National Alcohol and Substance Abuse Information Center (can tell you about the drug treatment programs in your area) 393.630.9413 www.addictioncareoptions.com Call 911 Call 911 if any [...] site Loss of vision or decreased vision 1706-1599 The [employer]. [address] [place] [address]. All rights reserved. This information is not intended as a substitute for professional medical care. Always follow yourhealthcare professional's instructions. Follow Up Care 03/29/2024 01:45:11 With:SRUTHI AMBROSIO Address: [address] [place] [phone] When:2-4 days [facility] 09-19-2024 Emergency department Discharge summary Discharge Instructions Thank you for allowing [facility] to assist you with your healthcare needs. The following is importantdischarge information regarding your hospital visit. What to Do Next Instructions from Your Care Team No qualifying data available. Post Acute Orders No qualifying data available. You Need to Schedule the Following Appointments Follow Up with SRUTHI AMBROSIO When:Within 2-4 days Where:[address] [place] [address] [phone] Allergies Dilaudid traMADol Medications Please ask your [...] car or at home) Arrest, conviction, and custodial sentence for possession of an illegal substance [...] of the resources below for help: National [place] on Alcoholism and Drug Dependence 730-579-BMWB www.ncadd.org Narcotics Anonymous www.na.org National Alcohol and Substance Abuse Information Center (can tell you about the drug treatment programs in your area) 970.916.8738 www.addictioncareoptions.com Call 911 Call 911 if any [...] site Loss of vision or decreased vision 7564-0202 The [employer]. [address] [place] [address], [place] [address]. All rights reserved. This information is not intended as a substitute for professional medical care. Always follow yourhealthcare professional's instructions. Additional Information VACCINATE! IT SAVES LIVES! Members of the community who have not yet received the COVID-19 vaccine and would like to receive it can visit one of [facility] vaccine clinics. There are many vaccine clinic locations within the [facility]. For locations and available times, please visit www.gettheshot.coronavirus.[place].gov/. It is important to note that some COVID mobile vaccine clinics are held outdoors and may be canceled in rainy or stormy conditions. To learn more about pediatric vaccinations (ages 5-11), we invite you to visit the [facility] webpage. https://www.[facility].org/pages/6522-Fhsnh-Gfvllwesczh-Pfdwbsbfwp-Esbdo-Xhy stions.htmlTo learn more about the COVID-19 vaccine, we invite you to visit the CDC website for a list of frequently asked questions. https://www.cdc.gov/coronavirus/2019-ncov/vaccines/faq.html [employer] Patient Portal Access Instructions: Stay connected with your healthcare team and access your personal medical information anytime with the [employer] Patient Portal. If you would like a full copy of your medical records please contact the [facility] Medical Records Department Tuesday through Tuesday between 8a.m. and 4:30p.m. Please follow the directions below to access the portal: 1.Access the email account you provided upon registration to the hospital.2.Look for an invitation email from [facility].3.Open the email and access the invitation link: Accept Invitation to [facility] [facility]4.Fill in the required sy to create your account. Sign into www.[email or web address] with your username and password that you [...] you will allow to register on the [employer] Patient Portal for access to your information. You can also access the [employer] Patient Portal on the [employer] efe. Simply click on Health Records under [employer] and then click on the [facility] logo. [...] Call your local pharmacy or go to http://[employer]aturaSì.[facility]/9W0Au5m to find one close to you.3.Make use of household items: Use cat litter or old coffee grounds to dispose medications if other options arenot available. Mix your drugs with these household products, seal them in an airtight container andthrow it into the garbage. Call [facility]: [phone] to be sure your drugs can be [...] aware that I should contact my doctor. Patient/Ski Patroller Signature: Date/Time: Relationship to Patient: Witness Name/Signature: Date/Time: [facility] [id number] Note ORIGINAL EXAMINATION: ONE XRAY VIEW OF [...] Sign Date: 03/29/2024 3:32:53 AM Ordering Provider: [facility]09-19-2024 NoteSINUS RHYTHM LEFT ATRIAL ENLARGEMENT ST ELEV, PROBABLE NORMAL EARLY REPOL PATTERN Electronic Signature: ARLENE BARNETT DO 03/29/2024 07:59:25[facility] 08-26-2024 Telephone encounter Note* Telephone Encounter - Marina Orantes - 03/05/2024 11:56 AM EDT [facility] No-Show Documentation Luisiot shaw showed for an appointment on 03/05/24 [...] Marina Lynne March 05, 2024 11:56 AM [facility]08-26-2024 Miscellaneous Notes* Telephone Encounter - Marina Orantes - 03/05/2024 11:56 AM EDT [facility] No-Show Documentation Luisito Zhong no showed for an appointment on 03/05/24 with [...] Marina Lynne March 05, 2024 11:56 AM documented in this encounterK[facility]08-02-2024 NoteHNO ID: [id number] Author: KINGSTON MCKINNON LSW Service: Care Management Author Type: Tool And Die Maker Level Five Type: Care Mgt Progress Note Filed: 02/10/2024 17:08 Note Text: CARE MANAGEMENT DISCHARGE NOTE SERVICE DATE: February 10, 2024 SERVICE TIME: 1700 Admission Date: 02/06/2024 LOS: 4 days Discharge Arrangement Discharge Arrangement: Home with Parent, Other: See Comment Services Arranged Medical Services: Other: See Comment Provider Name: [facility] Caregiver Assessment Caregiver is ready, willing and able to meet the patient's needs as recommended by the inter-professional team: Yes Name of Caregiver: Trice Zhong Transportation Arrangements Transportation Arrangements: Car Date of Trip: 02/10/24 Destination: Mother Trice Dotson's home Handoff Communication: Handoff to: Sql Database Administrator Sql Database Administrator Name/Phone: 2M [facility] Lacie Lobato - [phone] Additional Information: Received transfer of pt this date who is also discharged this date Met with pt and his mother Trice Zhong this date . Per pt he has contacted [facility] and they have accepted him to their program. Pt confirms he is to admit there on Tuesday02/13/24 and he will stay with his mother until he can be admitted there. He confirms that they will require his medical information be sent to their agency prior to his admission Contacted [facility] this date and spoke with Itzel [...] 10, 2024 TIME: 5:02 PM CONTACT #: [phone]24 NoteHNO ID: [id number] Author: DULCE MARIA DAN MD Service: Critical [...] on file. LABORATORY TESTS: CBC: Recent Labs 02/07/24 0602/06/242013 WBC 9.77 11.41* HB 11.4* 14.4 HCT 32.7* 43.5 PLT 161 256 MCV 89.6 94.4 RDWCV 14.6 14.8 NEUTP 77.8 72.6 ABSNEUT 7.59* 8.29* LYMPHP 14.4 12.9 MONOP 6.4 11.8 EODINP 0.3 0.2 COAG: Recent Labs 02/07/24600 APTT 25.0 INR 1.1 BMP: Recent Labs 02/09/24 0802/09/24 0339 02/09/244202/08/24194502/08/24 1451 02/08/24 1215 02/08/24 0839 02/08/24 0345 [...] 0.72 0.74 0.81 CHEM: Recent Labs 02/09/24 0807 02/09/24 0339 02/09/24 0043 02/08/24194502/08/24 14502/08/24 12102/08/24 0839 02/08/24 0345 02/07/24 1158 02/07/24 0601 02/07/24 0154 02/07/24 [...] URINALYSIS: Recent Labs 02/07/24 0142 02/07/24 0114 02/06/24223002/06/242050 PH -- 7.26* -- -- SPGR 1.021 -- 1.024 1.024 UGLUC 3+* -- 3+* 3+* UBILI Negative -- Negative Negative UKET 2+* -- 2+* 2+* UHB 2+* -- 1+* 1+* UPROT 1+* -- Negative Negative UWBC 0-5 /HPF -- 0-5 /HPF 0-5 /HPF CARDIAC: Recent Labs 02/06/242013 PBNP 1,001* ASSESSMENT 43 yo M wi (more content not included)...[facility]07-31-2024 NoteHNO ID: [id number] Author: DULCE MARIA DAN MD Service: Critical [...] on file. LABORATORY TESTS: CBC: Recent Labs 02/07/24 0601 02/06/242013 WBC 9.77 11.41* HB 11.4* 14.4 [...] airway protection. Imaging suggests (more content not included)...[facility]07-31-2024 NoteHNO ID: [id number] Author: ANSELMO COOPER LSW Service: Care Management Author Type: Tool And Die Maker Level Five Type: Care Mgt Progress Note Filed: 02/08/2024 [...] uses no DME, follows with PCP and synoptic meteorologist, recent heart surgery and follows with conduit installer, +insurance, mother and father involved in life at a distance due to extensive drug use. Discharge plan TBD - will depend on patient medical needs once liberated from vent. Mother Trice reports patient was attempting to go into rehab prior to admission (was at [facility] getting clearance and wanting to be admitted to detox unit but is no longer allowed at facility due to past behaviors). Will assist with drug treatment if patient still willing. Continue to follow. SIGNATURE: WILBER Gonzalez PATIENT NAME: Luisito Zhogn DATE: February 08, 2024 TIME: 9:07 [facility]07-30-2024 NoteHNO ID: [id number] Author: ANSELMO COOPER LSW Service: Care Management Author Type: Tool And Die Maker Level Five Type: Care Mgt Initial Assessment Filed: 02/07/2024 [...] Determined Advance Directives Current Advance Directive: None Medical Collections Representative Attempted to Assist with AD Completion: No [...] None Discharge Planning Patient Goal(s): General wellness [place] of [place] Explained: [place] of [place] Given: No Reason Not Given: [...] place to sleep or slept in a snf (including now)?: Yes Utilities In the past 12 months has the electric, gas, oil, or water company threatened to shut off services in your [...] Legal History: multiple arrests but nothing extensive Jehovah'S Witness/Spirituality: Unknown Do Special Considerations/Accommodations Need to be Made? No Are There Practices or Beliefs That May Affect or Influence Care? No, Patient/Ski Patroller Denies Patient Strengths/Protective Factors: Seeking Treatment Actively looking for sober living PSYCHIATRIC HISTORY: No Known Psychiatric Illness Family Psychiatric History No Known Psychiatric Illness Homicide/Suicide Risk None Substance Use and Treatment History: Alcohol Cocaine Crack Cocaine Offered Patient Resources: unable to at this time due to medical needs DISCHARGE RECOMMENDATIONS: Homeless [facility], Medical Follow-Up, Residential Treatment, Substance Use IOP/PHP, and Unknown Patient/Ski Patroller Agreeable With Discharge Recommendations At This Time? Discussed with mother but will need to discuss with patient as able OB (more content not included)...[facility]07-30-2024 NoteHNO ID: [id number] Author: DULCE MARIA DAN MD Service: Critical [...] APTT 25.0 INR 1.1 BMP: Recent Labs 02/07/2460002/07/24 01502/07/240 02/06/242013 GLUC 175* 175* 340* 340* 447* 556* NA 138 138 136 136 133* 129* K 3.5 3.5 3.8 3.8 -- 6.0* CHLOR 107 107 104 104 101 97* CO2 19* 19* 11* 11* 3* 5* ANION 12 12 21* 21* 29* 27* BUN 12 12 14 14 12 14 CREAT 0.89 0.89 1.03 1.03 1.12 1.10 CHEM: Recent Labs 02/07/2460002/07/24 01502/07/24 0010 02/06/242013 ALB 2.5* 2.6* -- 3.4 TPROT 5.1* 5.1* -- 6.4 CA 8.3* 8.3* 8.3* 8.3* 8.6 9.9 MG 1.7 -- -- 2.1 HEPATIC: Recent Labs 02/07/2460002/07/24 0154 02/07/24 0010 02/06/242013 ALKPHOS 86 93 -- 129* ALT 19 19 -- 25 AST 25 27 -- 28 TBILI 0.7 0.6 -- 0.8 LIPASE -- -- 15 -- URINALYSIS: Recent Labs 02/07/24 0142 02/07/24 0114 02/06/24223002/06/242050 PH -- 7.26* -- -- SPGR 1.021 [...] Possible sepsis Elevated TSH (more content not included)...[facility]07-26-[facility] History of Present illness Narrative* Bonilla Pollock MD - 02/03/2024 3:43 PM EDT Luisito Zhong is a 43 year old male who presents with Medication Problem (Pt states that he was [facility]. Pt states that he is in [...] will reschedule a follow-up appointment with his synoptic meteorologist. Patient has no other complaints. He only [...] clean since 06/21/2018. Went to treatment at [facility] for 9 months Mitral regurgitation Murmur Rotator cuff syndrome 06/18/2015 Subaortic membrane with stenosis Tetrahydrocannabinol (THC) use disorder, mild, in sustained remission, in controlled environment, abuse Type 1 diabetes mellitus with diabetic polyneuropathy (HCC) ACTIVE PROBLEM LIST Impingement Syndrome of Right Shoulder Type 1 Diabetes Mellitus With Diabetic Polyneuropathy ([facility]) Acquired Hypothyroidism Former Smoker Subaortic Membrane Mitral [...] 9 Each 3 Blood-Glucose Meter,Continuous (DEXCOM G6 CLOTH BOLT BANDER) misc Use to check blood sugar at [...] 1 Each 0 Blood-Glucose Meter,Continuous (DEXCOM G7 CLOTH BOLT BANDER) misc 1 Each five times a day. [...] (Patient not taking: Reported on 02/03/2024) Insulin [place], Disposable, (BD ULTRAFINE III MINI PEN) 31 [...] (FLONASE) 50 mcg/actuation nasal spray Use 1 [place] in the nose once daily as needed. [...] instructedto make a follow-up appointment with his synoptic meteorologist. ASSESSMENT/PLAN: 1. Medication refill - ICD9: V68.1, [...] MCG TABLET Bonilla Pollock documented in this encounterK[facility]07-26-[facility]24 Instructions* Patient Instructions* Bonilla Pollock MD - 02/03/2024 3:42 PM EDT Make a follow-up appointment with synoptic meteorologist documented in this encounterKettering [facility] Center07-24-2024 Hospital Discharge instructions Patient Education 02/01/2024 18:33:01 [...] car or at home) Arrest, conviction, and custodial sentence for possession of an illegal substance [...] of the resources below for help: National [place] on Alcoholism and Drug Dependence 062-652-VSKX www.ncadd.org Narcotics Anonymous www.na.org National Alcohol and Substance Abuse Information Center (can tell you about the drug treatment programs in your area) 776.229.9083 www.addictioncareDepoMedions.com Call 911 Call 911 if any of [...] site Loss of vision or decreased vision 9080-8741 [employer]. [address] [place] [address]. All rights reserved. This information is not intended as a substitute for professional medical care. Always follow yourhealthcare professional's instructions. Follow Up Care 02/01/2024 12:55:23 With:[facility] Emergency [facility], [facility] Address: [place] [address]- When: Unknown [facility] 07-24-2024 Emergency department Discharge summary Discharge Instructions Thank you for allowing [facility] to assist you with your healthcare needs. The following is importantdischarge information regarding your hospital visit. Diagnosis from Today's Visit Crack cocaine misuse Diabetes mellitus Troponin I above reference range What to Do Next Instructions from Your Care Team - Present immediately to [facility] emergency department, through which he will then enter [place]. No qualifying data available. Post Acute Orders No qualifying data available. You Need to Schedule the Following Appointments Follow Up with [facility], [facility] Where:[place] [address]- Allergies Dilaudid traMADol Medications Please ask your [...] car or at home) Arrest, conviction, and custodial sentence for possession of an illegal substance [...] of the resources below for help: National [place] on Alcoholism and Drug Dependence 349-967-ICMY www.ncadd.org Narcotics Anonymous www.na.org National Alcohol and Substance Abuse Information Center (can tell you about the drug treatment programs in your area) 166.259.9191 www.addictioncareoptions.CICCWORLD Call 911 Call 911 if any of [...] site Loss of vision or decreased vision 2614-2750 [employer]. [address] [place] [address]. All rights reserved. This information is not intended as a substitute for professional medical care. Always follow yourhealthcare professional's instructions. Additional Information VACCINATE! IT SAVES LIVES! Members of the community who have not yet received the COVID-19 vaccine and would like to receive it can visit one of [facility] vaccine clinics. There are many vaccine clinic locations within the [facility]. For locations and available times, please visit www.gettheshot.coronavirus.[place].gov/. It is important to note that some COVID mobile vaccine clinics are held outdoors and may be canceled in rainy or stormy conditions. To learn more about pediatric vaccinations (ages 5-11), we invite you to visit the [facility] webpage. [email or web address]/[email or web address] [email or web address] learn more about the COVID-19 vaccine, we invite you to visit the CDC website for a list of frequently asked questions. https://www.cdc.gov/coronavirus/2019-ncov/vaccines/faq.html [facility] Access Instructions: Stay connected with your healthcare team and access your personal medical information anytime with the [employer] Patient Portal. If you would like a full copy of your medical records please contact the [facility] Medical Records Department Tuesday through Tuesday between 8a.m. and 4:30p.m. Please follow the directions below to access the portal: 1.Access the email account you provided upon registration to the [facility].2.Look for an invitation email from [facility].3.Open the email and access the invitation link: Accept Invitation to [facility] [employer].Fill in the required sy to create your account. Sign into [email or web address] with your username and password that you [...] you will allow to register on the [employer] Patient Portal for access to your information. You can also access the [facility] [employer] Patient Portal on the [employer] efe. Simply click on Health Records under [employer] and then click on the [employer] logo. [...] Call your local pharmacy or go to [email or web address] to find one close to you.3.Make use of household items: Use cat litter or old coffee grounds to dispose medications if other options arenot available. Mix your drugs with these household products, seal them in an airtight container andthrow it into the garbage. Call [facility]: [phone] to be sure your drugs can be [...] drowsiness, such as benzodiazepines, also known as benzos, including diazepam and alprazolam, muscle relaxants or sleep aids. Never sell or share prescription opioids. This is illegal. Store opioids in a [...] aware that I should contact my doctor. Patient/Ski Patroller Signature: Date/Time: Relationship to Patient: Witness Name/Signature: Date/Time: [id number] NoteSINUS RHYTHM LEFT ATRIAL ENLARGEMENT Electronic Signature: MIQUEL BURNETT MD 02/01/2024 17:06:50[facility] 07-18-2024 Telephone encounter Note* Telephone Encounter - Liza Kramer LPN - 01/26/2024 4:21 PM EDT Patient called in stating his insulin pump quit working and he needs insulin to cover him until is endo appt. He he said he is establishing with Dr. Desai at [facility] on 03/02/2024. Pt states his current weight is 230 lb. After chart review, patient was ordered Tresiba Flextouch 100 Unit INJ on 01/13/2024 by Dwayne Araujo CNP who's specialty is Endocrinology. Sruthi notified of the above information. Per Sruthi, she is not refilling insulin, patient is seeinga AMBULANCE ATTENDANT from Endocrinology who is Dwayne Araujo. I called [facility] [phone], spoke to the pharmacist who confirmed Tresiba ordered on 01/13/2024 by Dwayne Araujo CNP was picked up on 01/14/2024 @ 2150. I thanked him for the information and call ended. I returned patient's call letting him know he needs to contact Dwayne Araujo CNP for any additionalinsulin orders. I also let patient know I confirmed with [facility] pharmacy Tresiba was picked up on 01/14/2024 and it was not accidentally filled because of his (pt's) shaky hand. Patient did not sound pleased with my response, he said ok, and call ended. Liza Kramer LPN January 26, 2024 5:13 PM [facility]07-18-2024 Miscellaneous Notes* Telephone Encounter - Liza Kramer LPN - 01/26/2024 4:21 PM EDT Patient called in stating his insulin pump quit working and he needs insulin to cover him until is endo appt. He he said he is establishing with Dr. Desai at [facility] on 03/02/2024. Pt states his current weight is 230 lb. After chart review, patient was ordered Tresiba Flextouch 100 Unit INJ on 01/13/2024 by Dwayne Araujo CNP who's specialty is Endocrinology. Sruthi notified of the above information. Per Sruthi, she is not refilling insulin, patient is seeinga QAMAR from Endocrinology who is Dwayne Araujo. I called [facility] [phone], spoke to the pharmacist who confirmed Tresiba ordered on 01/13/2024 by Dwayne Araujo CNP was picked up on 01/14/2024 @ 1820. I thanked him for the information and call ended. I returned patient's call letting him know he needs to contact Dwayne Araujo CNP for any additionalinsulin orders. I also let patient know I confirmed with [facility] pharmacy Tresiba was picked up on 01/14/2024 and it was not accidentally filled because of his (pt's) shaky hand. Patient did not sound pleased with my response, he said ok, and call ended. Liza Kramer LPN January 26, 2024 5:13 PM documented in this encounterK[facility]07-15-2024 Telephone encounter Note * Telephone Encounter - [...] Domínguez LPN January 23, 2024 2:55 PM [facility]07-15-2024 Miscellaneous Notes* Telephone Encounter - Renee Domínguez [...] 23, 2024 2:55 PM documented in this encounterKettering [facility]06-26-2024 Telephone encounter Note * Telephone Encounter - [...] Domínguez LPN January 04, 2024 3:26 PM [facility]06-26-2024 Miscellaneous Notes* Telephone Encounter - Renee Domínguez [...] 04, 2024 3:26 PM documented in this encounterKettering Health [facility] Center06-25-2024 Telephone encounter Note * Telephone Encounter - [...] Domínguez LPN January 03, 2024 3:11 PM [facility]06-25-2024 Miscellaneous Notes* Telephone Encounter - Renee Domínguez [...] 03, 2024 3:11 PM documented in this encounterKettering Health [facility] Center06-25-2024 Telephone encounter Note * Telephone Encounter - Stephani Cox LPN - 01/03/2024 1:40 PM EDT Patient phoned office requesting attached orders due to not being seen by Endocrinology until January.Patient is only requesting 1 month supply of the G6 Sensors, and 1 transmitter. Patient upset he has not been contacted on Itugot about this, since he messaged yesterday. This nurse apologized for the inconvenience Orders attached Pended Orders ID Status Description Pended By When Reason [id number] Pended Blood-Glucose Transmitter (DEXCOM G6 TRANSMITTER) xenia-DAILY Stephani Cox LPN 01/03/24 1348 [id number] Pended Blood-Glucose Sensor (DEXCOM G6 SENSOR) xenia-CONTINUOUS Stephani Cox LPN 01/03/24 1348 Stephani Cox LPN January 03, 2024 1:49 PM [facility]06-25-2024 Miscellaneous Notes* Telephone Encounter - Stephani Cox LPN - 01/03/2024 1:40 PM EDT Patient phoned office requesting attached orders due to not being seen by Endocrinology until January.Patient is only requesting 1 month supply of the G6 Sensors, and 1 transmitter. Patient upset he has not been contacted on [employer] about this, since he messaged yesterday. This nurse apologized for the inconvenience Orders attached Pended Orders ID Status Description Pended By When Reason [id number] Pended Blood-Glucose Transmitter (DEXCOM G6 TRANSMITTER) xenia-DAILY Stephani Cox LPN 01/03/24 1348 [id number] Pended Blood-Glucose Sensor (DEXCOM G6 SENSOR) xenia-CONTINUOUS Stephani Cox LPN 01/03/24 1348 Stephani Cox LPN January 03, 2024 1:49 PM documented in this encounterKettering [facility]06-24-2024 History of Present illness Narrative* Mercedes Spear, COVER OPERATOR.AMBULANCE ATTENDANT - 01/02/2024 5:35 PM EDT Telemedicine Visit - Distance Health Virtual Visit Note Patient seen on [employer] Video Visit platform. Location of patient: [place] I have communicated my name and active licensure. The patient's identity and physical location wereverified at the time of this visit. Either the patient or their legal community health program representative has been informed of the risks and benefits of -- and alternatives to -- treatment through a remote evaluation andconsents to proceed with the evaluation remotely. History of Present Illness Luisito Zhong is a 43 year old male who presents requesting a refill of his insulin supplies. Referral to PCP or Qc Scientist. Unable to prescribed medical equipment online - All questions answered Mercedes Spear APRN.CNP documented in this encounterKettering Health [facility]05-31-2024 Telephone encounter Note * Telephone Encounter - [...] will send prescription for vitamin D supplement [facility]05-31-2024 Miscellaneous Notes* Telephone Encounter - Sruthi Ambrosio [...] for vitamin D supplement documented in this encounterKettering Health [facility] Center05-16-2024 Note* Addendum Note - Sruthi Ambrosio APRN.CNP - 11/24/2023 2:34 PM EDTAddended by: SRUTHI AMBROSIO on: 11/24/2023 02:34 PM Modules accepted: Orders [facility]05-16-2024 Miscellaneous Notes* Addendum Note - Sruthi Ambrosio APRN.CNP - 11/24/2023 2:34 PM EDTAddended by: SRUTHI AMBROSIO on: 11/24/2023 02:34 PM Modules accepted: Orders documented in this encounterKettering Health [facility] Center05-16-2024 History of Present illness Narrative* Sruthi Ambrosio APRN.CNP - 11/24/2023 8:12 AM EDT This note was created using Impinj. Subjective Luisito Zhong is a 43 year old male who presents for routine follow-up for chronic medical conditions. Last seen on 01/07/2023. He apparently went to a residential drug and alcohol treatment center in [place] in February- there for about 30 days. Had a relapse and went back to treatment in August and was there for 78 days. Living in sober living in [place]. He is scheduled with synoptic meteorologist on January 29- Dr. Mcarthur. He does [...] call the office or send communication via Racer[employer]est for questions or concerns regarding today's appointment or follow up. Sruthi Ambrosio APRN.AMBULANCE ATTENDANT This note was partially generated using [employer] voice recognition system, and there may be some incorrect words, spellings, and punctuation that were not noted in checking the note before saving. documented in this encounterKettering Health [facility] Center05-16-2024 Nurse Note* Renee Domínguez LPN - 11/24/2023 8:04 AM EDT Patient is in office today for a follow-up on chronic medical conditions. Patient would like to discuss medication refills today. Renee Domínguez LPN November 24, 2023 8:08 AM [facility]05-16-2024 Nurse Note* Renee Domínguez LPN - 11/24/2023 8:04 AM EDT Patient is in office today for a follow-up on chronic medical conditions. Patient would like to discuss medication refills today. Renee Domínguez LPN November 24, 2023 8:08 AM documented in this encounterKettering [facility]05-14-2024 Telephone encounter Note * Telephone Encounter - Marina Orantes - 11/22/2023 11:11 AM EDT I spoke with Luisito regarding his diabetic equipment request being denied per Sruthi I have refused this order- he will need to see endocrinology. Luisito verbalized understanding. Marina Lynne November 22, 2023 11:13 AM [facility]05-14-2024 Miscellaneous Notes* Telephone Encounter - Marina Orantes - 11/22/2023 11:11 AM EDT I spoke with Luisito regarding his diabetic equipment request being denied per Sruthi I have refused this order- he will need to see endocrinology. Luisito verbalized understanding. Marina Lynne November 22, 2023 11:13 AM * Telephone Encounter - Sruthi Ambrosio APRN.CNP - 11/18/2023 12:02 PM EDT Hi, I have refused this order- he will need to see endocrinology. * Telephone Encounter - Marina Orantes - 11/18/2023 11:42 AM EDT Luisito just got ou of rehab and is out of his diabetic testing supplies. He is requesting they be sent to the [facility] on . OMAR: 01/07/23 NSOV: 11/24/23 He was going to stay at the [place] office and see Robynrene Humphreyjustus but he has moved to [place]. He would like to continue seeing Sruthi. Requested Prescriptions Pending Prescriptions Disp Refills Blood-Glucose Meter,Continuous (DEXCOM G6 CLOTH BOLT BANDER) misc 1 Each 0 Sig: Use to check blood sugar at least four (4) times daily. Blood-Glucose Transmitter (DEXCOM G6 TRANSMITTER) xenia 1 Each 3 Sig: Apply new transmitter every 90 days. Clean transmitter with an alcohol swab with each sensor change. Thank you. Marina Lynne November 18, 2023 11:47 AM documented in this encounterKettering [facility]05-10-2024 Telephone encounter Note * Telephone Encounter - Sruthi Ambrosio APRN.QAMAR - 11/18/2023 12:02 PM EDT Hi, I have refused this order- he will need to see endocrinology. [facility]05-10-2024 Telephone encounter Note* Telephone Encounter - Marina Orantes - 11/18/2023 11:42 AM EDT Luisito just got ou of rehab and is out of his diabetic testing supplies. He is requesting they be sent to the [facility] on . OMAR: 01/07/23 NSOV: 11/24/23 He was going to stay at the [place] office and see Robyn Taylor but he has moved to [place]. He would like to continue seeing Sruthi. Requested Prescriptions Pending Prescriptions Disp Refills Blood-Glucose Meter,Continuous (DEXCOM G6 CLOTH BOLT BANDER) misc 1 Each 0 Sig: Use to check blood sugar at least four (4) times daily. Blood-Glucose Transmitter (DEXCOM G6 TRANSMITTER) xenia 1 Each 3 Sig: Apply new transmitter every 90 days. Clean transmitter with an alcohol swab with each sensor change. Thank you. Marina Lynne November 18, 2023 11:47 AM [facility]03-21-2024 Miscellaneous Notes* Telephone Encounter - Isabel Jose - 09/29/2023 2:00 PM EDTSummary: No Show #1 [employer] No-Show Documentation Luisiot Zhong no showed for an appointment on [...] the Third or Fourth No Show? No Isabel Jose September 29, 2023 2:07 PM documented in this encounterKettering Health [facility] Center02-05-2024 Miscellaneous Notes* Telephone Encounter - Stephani Cox [...] 15, 2023 5:43 PM documented in this encounterKettering Health [facility] Center11-16-2023 Miscellaneous Notes* Telephone Encounter - Stephani Cox LPN - 05/26/2023 3:14 PM EST Records indicate there is an active script at pharmacy Stephani Cox LPN May 26, 2023 3:15 PM * Telephone Encounter - Isabel Jose - 05/26/2023 1:50 PM EST escitalopram oxalate (LEXAPRO) 20 mg tablet - [id number] [place] [address] - [address] [place] [phone] *LVM to schedule with either MANAGER LOCAL Radha or SHELLY Taylor documented in this encounterKettering Health Behavior[facility] Center11-15-2023 Miscellaneous Notes* Telephone Encounter - Cielo Bloom - 05/25/2023 9:14 AM EST No Show Documentation Luisito Zhong no showed for an appointment on 05/25/2023 with Dwayne Araujo APRN.AMBULANCE ATTENDANT at 9a. He was scheduled for a [...] or Fourth No Show? No Cielo Bloom May 25, 2023 9:15 AM documented in this encounterKettering Health [facility] Center11-09-2023 Miscellaneous Notes* Telephone Encounter - Aniya Mills [...] signed Aniya Mills LPN documented in this encounterKettering Health Behavioral [facility] Center10-27-2023 Telephone encounter Note * Telephone Encounter - Jocelyne Godwin - 05/06/2023 3:39 PM EDT Name of caller: Betty Contact phone number: [phone] Relationship to Patient: [facility] Services Provider: QAMAR Oviedo Practice: [facility] Endocrinology Chief Complaint/Reason for Call: Betty states that she is calling to see if the LMN for insulin pump supplies, sent on 05/03 has been received. Betty states that they would like to receive a cb at [phone] to confirm. Please advise. Best time of day caller can be reached: Any Patient advised that office/PCP has 24-48 business hours to return their call: No [id number] Miscellaneous Notes* Telephone Encounter - Jocelyne Guillory - 05/06/2023 3:39 PM EDT Name of caller: Betty Contact phone number: [phone] Relationship to Patient: [facility] Services Provider: QAMAR Oviedo Practice: [facility] Endocrinology Chief Complaint/Reason for Call: Betty states that she is calling to see if the LMN for insulin pump supplies, sent on 05/03 has been received. Betty states that they would like to receive a cb at [phone] to confirm. Please advise. Best time of day caller can be reached: Any Patient advised that office/PCP has 24-48 business hours to return their call: No documented in this [facility]10-27-2023 History of Present illness Narrative* Luz Maria Perez MD - 05/06/2023 11:30 AM EDT Subjective: Patient: Luisito Zhong is a 43 y.o. male HPI Is 43 years old he has a complex history in which she has had 2 surgeries for subaortic stenosis approximately 4 years ago he had his original surgery here at [facility] and then the membrane reoccurred and had another operation through the [facility] system within the last 18 months. At [...] Problems Father No Known Problems Mother Other ([address]) Sister MS Heart disease Paternal Grandmother Social [...] (aortic valve replacement) 5. Substance abuse (CMS/HCC) ([facility]) 6. Mixed hyperlipidemia Plan Luisito Zhong is [...] imaging, and cardiac testing. documented in this [facility]08-25-2023 Instructions* Patient Instructions* Dwayne Araujo APRN.CNP - 03/04/2023 7:49 AM EDT Continue use of tandem pump. I will fax a letter to your rehab stating that I am managing your diabetes. Report to rehab facility in the morning documented in this encounterKettering Health [facility] Center08-24-2023 History of Present illness Narrative* Dwayne Araujo APRN.CNP - 03/03/2023 5:30 PM EDT Endocrinology Virtual Visit This is a virtual visit using Keel[employer] video visit. It required patient-provider interaction for themedical decision making as documented below. I have communicated my name and active licensure. The patient's identity and physical location wereverified at the time of this visit. Either the patient or their legal community health program representative has been informed of the risks [...] dilated exams Foot Exam: Follows with a track greaser HISTORY REVIEWED (electronic chart updated): PAST MEDICAL [...] clean since 06/21/2018. Went to treatment at [facility] for 9 months Mitral regurgitation Murmur Rotator cuff syndrome 06/18/2015 Subaortic membrane with stenosis Tetrahydrocannabinol (THC) use disorder, mild, in sustained remission, in controlled environment, abuse Type 1 diabetes mellitus with diabetic polyneuropathy ([facility]) PAST SURGICAL HISTORY Procedure Laterality Date HIP [...] (10) days to abdomen. blood sugar diagnostic (FlexyMindTOUCH ULTRA TEST) test strip Use for checking blood sugars up to 7 timesdaily, AC/HS plus as needed for symptoms for hyper/hypoglycemia umeclidinium-vilanterol (ANORO ELLIPTA) 62.5-25 mcg/actuation inhaler Inhale 1 Inhalation as instructed once daily. Blood-Glucose Meter,Continuous (DEXCOM G6 CLOTH BOLT BANDER) misc Use to check blood sugar at [...] mg by mouth q 24 HR. Insulin [place], Disposable, (BD ULTRAFINE III MINI PEN) 31 [...] (FLONASE) 50 mcg/actuation nasal spray Use 1 [place] in the nose once daily as needed. [...] hisdiabetes. I called and spoke to Nurse Collins at his facility. Plan is to fax [...] which included preparing to see the patient, [id number] patient care, completing clinical documentation, obtaining and/or reviewing separately obtained history, performing a medically appropriate examination, counseling and educating the pat ient/family/caregiver, ordering medications, tests, or procedures, communicating with other HCPs (not separately reported), independently interpreting results (not separately reported), communicatingresults to the patient/family/caregiver, and care coordination (not separately reported) Dwayne Araujo APRN.QAMAR documented in this encounterKettering Health [facility] Center08-21-2023 Miscellaneous Notes* Telephone Encounter - Kingston Page LPN - 02/28/2023 3:34 PM EDT Patient called requesting the following refill. Requested Prescriptions Pending Prescriptions Disp Refills insulin lispro (HUMALOG U-100 INSULIN) 100 unit/mL injection 80 mL 3 Sig: Inject up to 80 units per day via insulin pump. Patient last appointment: 01/07/2023 Patient Phone numbers: [phone] (home) Request is for script(s) to be escript to pharmacy. Kingston Page LPN documented in this encounterKettering Health [facility] Center08-18-2023 Miscellaneous Notes* Telephone Encounter - Emmett Lofton APRN.CNP - 02/25/2023 10:20 AM EDT I [...] clearing him for a rehab program. Emmett Lofton APRN.QAMAR * Telephone Encounter - Anita Dan - 02/25/2023 9:56 AM EDT Karina [phone] nurse at the [facility] called and stated Forrestsent letter [...] come back. Anita Dan documented in this encounterKettering Health [facility] Center08-14-2023 Miscellaneous Notes* Telephone Encounter - Colleen Hoffman [...] Patient last appointment: 01/07/2023 Patient Phone numbers: [phone] (home) Request is for script(s) to be escript to [facility] pharmacy. Colleen Hoffman LPN documented in this encounterKettering Health [facility] Center08-10-2023 Instructions* Patient Instructions* Dwayne Araujo APRN.QAMAR - 02/17/2023 1:33 PM EDT Go to the ER and be evaluated for DKA documented in this encounterKettering Health [facility]al [facility] Center08-10-2023 History of Present illness Narrative* Dwayne Araujo APRN.QAMAR - 02/17/2023 1:19 PM EDT Kerry Jorge [...] but not using it with CGM. Wentto [facility] yesterday for possible DKA, blood sugars >500,+ketones, excessive thirst, and excessive urination. He states that he left the [facility] ER before being seen and made an appointment to see me instead. 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 [...] clean since 06/21/2018. Went to treatment at [facility] for 9 months Mitral regurgitation Murmur Rotator [...] by mouth q 24 HR.^Disp: ^Rfl: Insulin [place], Disposable, (BD ULTRAFINE III MINI PEN) 31 gauge x 3/16^USE WITH INSULIN PENS ONCE DAILY diagnosis E10.65 [...] fluticasone (FLONASE) 50 mcg/actuation nasal spray^Use 1 [place] in the nose once daily as needed.^Disp: ^Rfl: ALLERGY RELIEF, LORATADINE, 10 mg tablet^Take 10 mg by mouth once daily.^Disp: ^Rfl: insulin lispro (HUMALOG KWIKPEN INSULIN) 100 unit/mL inpn^13-20 Units three times daily with meal^Disp: 5 Pen^Rfl: 0 Blood-Glucose Meter,Continuous (DEXCOM G6 CLOTH BOLT BANDER) misc^Use to check blood sugar at least [...] system. [facility] He describes some symptoms of DKA (excessive thirst, urination, +ketones, and glucose >500) and went to [facility] yesterday but left before being seen. 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 I went back and discussed patient rx preference with Sruthi and she did reorder new Dexcom 6 supplies for patient documented in this encounterKettering Health Behavior[facility] Center08-07-2023 Miscellaneous Notes* Telephone Encounter - Anita Dan - 02/14/2023 3:42 PM EDT PA was submitted via CM for pt's Insulin Degludec flextouch 100unit/pen documented in this encounterKettering Health Behavioral [facility] Center08-03-2023 Miscellaneous Notes* Telephone Encounter - Anita Dan [...] letter. Faxed attention to [facility], fax number: [phone]. Call pt to confirm letter is faxed. Please advise. Anita Dan documented in this encounterKettering Health Behavioral Medical Center07-31-2023 Miscellaneous Notes* Addendum Note - Anita Dan - 02/07/2023 4:06 PM EDTAddended by: ANITA DAN on: 02/07/2023 04:06 PM Modules accepted: Orders * Telephone Encounter - Anita Dan - 02/07/2023 4:02 PM EDT Pt called and stated [facility] stated they do not have the Omnipod kit could not order it and he would like it to go to [place], [place] [phone]. The pods can stay at [facility] pharmacy. Pharmacy electronically requesting refills as follows: [...] APRN.CNP - 02/07/2023 2:45 PM EDT Filled Dwaynealona Araujo APRN, CNP * Telephone Encounter - Anita Dan - 02/07/2023 8:26 AM EDT Pt LVM stating was having some trouble with previous pharmacies and would like his Omnipod kit and pods to go to [facility] pharmacy on [address] LUCRECIA Pena Called [...] and advise. 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 Please advise Anita Dan documented in this encounterKettering Health Behavior[facility] Center07-31-2023 Miscellaneous Notes* Telephone Encounter - Colleen Hoffman [...] he has an appointment with a new Qc Scientist at the end of March. Colleen Hoffman LPN February 07, 2023 10:19 AM * Telephone Encounter - Isabel Jose - 02/07/2023 9:13 AM EDTSummary: Refills Patient is asking for One Touch Verio test strips, Machine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 Dispense report shows that patient also when it went [facility] and received Toujeo max 40 units subcutaneous daily 12 mL. Patient was also prescribed from [facility] Humalog 18 units 3 times daily AC [...] and will seek a second opinion with [facility] endocrinology. Patient already has an appointment scheduled with [facility] endocrinology. Patient note from 07/13/22 states: Patient [...] is using insulin pump but notes to [facility] show differently. Advised patient that I feel [...] wishes to remain on the insulin pump. [facility] [id number] Miscellaneous Notes* Telephone Encounter - RIC Stanford CNP - 07/15/2022 3:06 PM EST Luisito arrived at the office today reporting that he was still having difficulties with dexcom andwanted to switch to Carlton. Patient's phone is not compatible and Counseled patient that Tandem pumpis not compatible with Carlton Identified that patient had an appointment With [facility] endocrinology 07/01/2022. Patient requested Dexcom samples for failed Dexcom G6 from [facility] endocrinology 06/25/2022 and 06/28/2022. Patient also came to [facility] in [place] 06/28/2022 requesting Dexcom sample. Informed patient that we did not have any samples available patient has already received 8 samples from [facility] in the month of June. On patient had a telephone encounter with [facility] endocrinology requesting 70/30 insulin as he did well on this before switching pump. Patient was prescribed 70/30 insulin 45 units twice daily asked patient to use insulin for sliding scale. Patient was sent 10 days prescription andasked to get in touch with primary synoptic meteorologist as soon as tomorrow. Patient called [facility] endocrinology 06/30/2022 requesting Humulin 70-30 vials 90-day supply. Patient requested to have [facility] fill this prescription. [facility] units subcutaneous daily 12 mL. Patient was also prescribed from [facility] Humalog 18 units 3 times daily AC [...] and will seek a second opinion with [facility] endocrinology. Patient already has an appointment scheduled with [facility] endocrinology. Patient note from 07/13/22 states: Patient [...] is using insulin pump but notes to [facility] show differently. Advised patient that I feel [...] on the insulin pump. documented in this [facility]01-02-2023 Miscellaneous Notes* Telephone Encounter - Thais [...] up with primary care. documented in this encounterKettering [facility] Center01-02-2023 Miscellaneous Notes* Addendum Note - Thais Phelps APRN.CNP - 07/12/2022 12:32 PM ESTAddended by: THAIS PHELPS on: 07/12/2022 12:32 PM Modules accepted: Orders * Addendum Note - Thais Phelps APRN.CNP - 07/12/2022 12:27 PM ESTAddended by: THAIS PHELPS on: 07/12/2022 12:27 PM Modules accepted: Orders documented in this encounterKettering Health [facility]al Medical Center01-02-2023 History of Present illness Narrative* Thais Phelps APRN.CNP - 07/12/2022 11:47 AM EST This note was created using ALCOHOOTriter. Subjective Luisito Zhong is a 42 year [...] regurgitation Alcohol abuse History of drug abuse (HCC) Date Noted: 04/04/2019 Anxiety and depression Date [...] History: No date: Cocaine abuse in remission (HCC) No date: Ex-smoker No date: Ex-smoker 03/12/2014: [...] tenderness or frontal sinus tenderness. Mouth/Throat: Lips: [place]. Mouth: Mucous membranes are moist. Dentition: Abnormal [...] 800 mg tablet (Z76.0) Medication refill Plan: qfuyrgycsay-sdfrzqsvd-pdrklrom (TRELEGY ELLIPTA) 200-62.5-25 mcg inhalation powder (R06.02) SOB (shortness of breath) Plan: dbjcojkwoxm-llsotbknr-qxnkudox (TRELEGY ELLIPTA) 200-62.5-25 mcg inhalation powder Amoxicillin [...] which included preparing to see the patient, tfch-ft-cviv patient care, completing clinical documentation, obtaining and/or reviewing separately obtained history, performing a medically appropriate examination, counseling and educating the pat ient/family/caregiver, and ordering medications, tests, or procedures. documented in this encounterKettering Health [facility] Center01-02-2023 Instructions* Patient Instructions* Thais Phelps APRN.CNP - 07/12/2022 11:46 AM EST (K04.7) Dental infection (primary encounter diagnosis) Plan: amoxicillin (AMOXIL) 875 mg tablet, ibuprofen (MOTRIN) 800 mg tablet (Z76.0) Medication refill Plan: fvexedpigsl-hliypqkui-efegapra (TRELEGY ELLIPTA) 200-62.5-25 mcg inhalation powder (R06.02) SOB (shortness of breath) Plan: qjdjuwrcnns-fljffscvx-daopsumc (TRELEGY ELLIPTA) 200-62.5-25 mcg inhalation powder Amoxicillin [...] status, or other concerns. documented in this encounterKettering Health Behavioral Medical Center12-28-2022 Miscellaneous Notes* Telephone Encounter - Dot Nath Ma - 07/07/2022 2:24 PM EST The following approved medication requests have been transmitted electronically. Requested Prescriptions Signed Prescriptions Disp Refills insulin NPH-insulin regular injection 90 mL 0 Sig: Inject 45 Units subcutaneously before breakfast and 45 Units before dinner. 90 ml equals 9 vials Authorizing Provider: MIGUEL A AC documented in this encounterKettering Health Behavioral Medical Center12-22-2022 Miscellaneous Notes* Telephone Encounter - Cielo Bloom - 07/01/2022 1:23 PM EST No Show Documentation Luisito Zhong no showed for an appointment on 07/01/2022 with Dwayne Araujo APRN.CNP at 1pm. He was scheduled for a New Patient appointment. I called and spoke with the patient regarding his missed appointment. This is the patients first no show in the last 12 months. Letter mailed : Yes Is this the Third or Fourth No Show? No Cielo Bloom July 01, 2022 1:23 PM documented in this encounterKettering Health Behavioral [facility] Center12-21-2022 Miscellaneous Notes* Telephone Encounter - Casey Swift MD - 06/30/2022 2:24 PM EST Approved medication requests have been transmitted electronically. Casey Swift MD documented in this encounterKettering Health Behavioral Medical Center12-20-2022 Miscellaneous Notes* Telephone Encounter - Wolfgang Sanchez MD - 06/29/2022 6:57 PM EST Called by [facility] that patient had pump malfunction and does [...] asked to get in touch with primary synoptic meteorologist as soon as possible tomorrow. Wolfgang Deluca M.D. PGY-5, Endocrinology and Metabolism [place] documented in this encounterKettering Health Behavioral Medical Center12-20-2022 Miscellaneous Notes* Telephone Encounter - Sonam Meek RN - 06/29/2022 5:55 PM EST Patient calling with medication/refill: Patient/caregiver requesting refill of insulin because his insulin pump is no longer functioning. [facility] Do you have enough medication to last until the office reopens? No. , and Have you contacted your pharmacy to ask for enough medication to get by until the office reopens? No. . Patient denies any new or worsening symptoms of which a provider is not aware:Yes. Paged online media director Endocrinology which NOC conferenced in with patient [...] have any questions, you can call Nurse visual presentation manager back. documented in this encounterKettering Health Behavioral Medical Center12-19-2022 Miscellaneous Notes* Telephone Encounter - Qian Harmon - 06/28/2022 2:21 PM EST Patient called looking to see if we had a sample kit because he lost all of his supplies. Lost connection with patient. Called back and spoke with his mom. She will let him know that it's at front desk admin of 0 for pickup Qian Harmon Pot Fireman [facility] documented in this encounterKettering Health Behavioral Medical Center12-19-2022 Miscellaneous Notes* Telephone Encounter - Paty Iverson [...] - 06/28/2022 1:01 PM EST Patient left asking for a dexcom sample. Stating he [...] him a sample. Pt communicated understanding. Destinee Torres.pilot plant technician * Telephone Encounter - Lakisha Agarwal - 06/28/2022 12:06 PM EST Ptdrosalinolenin zhong is seeing dwayne araujo 07 01 2022 and is in need of a dexcom 6 sample as he has issues with his he says he has spoken to janusz and he is out also we dont have any samples could you help him? he states he was downto your office and you dont have any----this is weird situation his phone [phone] he asked me to contact downtown offices also to see if they have any samples I can send a msg to tracy but since he is seeing dwayne, I [...] issues Was given a Dexcom 6 by erika in [place] but is in this area and wanted to know if we would give hem a sample as , he states, a [facility] office had given one to him prior I could not find this in chart either I told him I would ask but I thought he would need ov first Lakisha Agarwal June 25, 2022 2:20 PM documented in this encounterKettering Health Behavioral Medical Center10-26-2022 History of Present illness Narrative* Gely Rowland Research Coordinator - 05/05/2022 12:11 PM EDT QOL Call Tracking Documentation Follow-Up Type: Phone Call Call Attempt: 1st Attempt Call Status: Patient will complete in MyChart documented in this encounterKettering Health Behavioral Medical Center08-16-2022 Miscellaneous Notes* Telephone Encounter - Aniya Norwood RN - 02/23/2022 10:22 AM EDT [facility] Contact Center Inbound Phone Encounter DATE of SERVICE: 02/23/2022 TIME of SERVICE: 10:22 AM Status: Non-urgent, needs attention Service/Provider: Cardiac Surgery Roscoe Arias M.D. Reason for call: Pain Contact information: Fatou [phone] [phone] [facility] Resolution: Sent to [facility] Comments: Fatou called for pt to get refill for Hydrocodone-Acetaminophen for pain in chest, shoulders and back at times. [facility] in [place] is the pharmacy the facility uses. They lock up the medication and distribute. Their phone is [phone]. Fatou's is above from facility. Aniya Norwood RN Date of Resolution: 02/23/2022 Time of Resolution 10:22 AM documented in this encounterKettering Health [facility]al [facility] Center08-10-2022 History of Present illness Narrative* Courtney Gabriel APRN.AMBULANCE ATTENDANT - 02/17/2022 10:30 AM EDT Images from the original note were not included. [facility] [place] Joseline Powers Department of Cardiovascular Medicine DEPARTMENT [...] (FLONASE) 50 mcg/actuation nasal spray Use 1 [place] in the nose once daily as needed. [...] as needed for Pain. Take withfood. Insulin [place], Disposable, (BD ULTRAFINE III MINI PEN) 31 gauge x 3/16 ndle Use new needle with each insulin injection 4 times a day blood sugar diagnostic (FlexyMindTOUCH VERIO) test strip Test blood sugar(s) 4 [...] safe in the home? Yes Courtney Gabriel APRN.AMBULANCE ATTENDANT CC: They lancet it last time and [...] undergone cardiac surgical procedure. I have refilled Ida after determining appropriate use of pain medication and OARRS review. The patient is being prescribed for a maximumof 7 days with no refills not exceeding the 30 MED limit established by the [facility] (#4731-05-23). The patient has been provided with weaning instructions emphasizing the use of non- narcotic alternatives that are medically tolerable. Please wean as tolerated by increasing time between doses. REFERRAL (RECOMMENDATION): Cardiothoracic OPD for continued follow-up documented in this encounterKettering Health Behavioral Medical Center08-08-2022 Miscellaneous Notes* Addendum Note - Courtney Gabriel [...] Incisions Contact information: pt Resolution: Sent to [facility] [employer] Comments: Pt called the [facility] DC phone as instructed to do from Renay Funk CNP if incision is not healing. Pt had a follow-up with QAMAR Gee - lanced and antibiotic were started as incision was draining. Pt states it is still draining, and just not healing. Denies fever. [phone] Aniya Norwood RN Date of Resolution: 02/15/2022 Time of Resolution 2:08 PM documented in this encounterKettering Health [facility] Center08-02-2022 History of Present illness Narrative* Renay Funk APRN.CNP - 02/09/2022 3:11 PM EDT Images from the original note were not included. [facility] [place] Joseline Powers Department of Cardiovascular Medicine DEPARTMENT [...] Date Acquired hypothyroidism Alcohol abuse sober since 2014 Anxiety and depression 04/04/2019 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 Has been clean since 06/21/2018. Went to treatment at [facility] for 9 months Mitral regurgitation Murmur Rotator [...] (FLONASE) 50 mcg/actuation nasal spray Use 1 [place] in the nose once daily as needed. [...] as needed for Pain. Take withfood. Insulin [place], Disposable, (BD ULTRAFINE III MINI PEN) 31 gauge x 3/16 ndle Use new needle with each insulin injection 4 times a day blood sugar diagnostic (Firm58 VERIO) test strip Test blood sugar(s) 4 [...] pleural effusion SBE prophylaxis reviewed Renay Funk APRN.AMBULANCE ATTENDANT documented in this encounterKettering Health Behavioral Medical Center08-02-2022 Miscellaneous Notes* Telephone Encounter - Lakisha Holt RN - 02/09/2022 11:47 AM EDT [facility] Contact Center Inbound Phone Encounter DATE of SERVICE: 02/09/2022 TIME of SERVICE: 11:48 AM Status: Non-urgent, needs attention Service/Provider: Cardiac Surgery Roscoe Arias M.D. Reason for call: Incisions Contact information: Javy Zhong [phone] Resolution: Sent to [facility] Comments: Luisito Zhong called the [facility] post discharge line to say his midsternal [...] the incision. He can be reached at [phone]. Lakisha Holt RN Date of Resolution: 02/09/2022 Time of Resolution 11:48 AM documented in this encounterKettering Health Behavioral Medical Center08-02-2022 Miscellaneous Notes* Telephone Encounter - Lakisha Holt RN - 02/09/2022 8:38 AM EDT [facility] [place] Contact Center Inbound Phone Encounter DATE of SERVICE: 02/09/2022 TIME of SERVICE: 8:39 AM Status: Non-urgent, needs attention Service/Provider: Cardiac Surgery Roscoe Arias M.D. Reason for call: Medication Issue/Question Contact information: Dot boogie [facility] [phone] Resolution: Sent to [employer] Comments: Dot, from [facility] [phone], called to say she needs it to be noted how many days supply Hydrocodone-acetaminophen is prescribed for. She indicates this can be done electronically. Lakisha Holt RN Date of Resolution: 02/09/2022 Time of Resolution 8:39 AM documented in this encounterKettering Health Behavioral Medical Center07-28-2022 Miscellaneous Notes* Telephone Encounter - Kerry Ba RN - 02/04/2022 11:36 AM EDT [facility] Contact Center Inbound Phone Encounter DATE of SERVICE: 02/04/2022 TIME of SERVICE: 11:38 AM Status: Non-urgent, needs attention Service/Provider: Cardiac Surgery Roscoe Arias M.D. Reason for call: Medication Issue/Question and Pain Contact information: [phone] Resolution: Sent to [facility] Comments: Pt calling [facility] line. Last seen [...] muscle relaxer medication to be sent to [facility] in [place]. It was listed as prior medication but long ago. Pt ph # [phone]. Kerry Ba RN Date of Resolution: 02/04/2022 Time of Resolution 11:38 AM documented in this encounterKettering Health Behavioral Medical Center07-27-2022 History of Present illness Narrative* Renay Funk APRN.AMBULANCE ATTENDANT - 02/03/2022 11:30 AM EDT Images from the original note were not included. [facility] [place] Joseline Powers Department of Cardiovascular Medicine DEPARTMENT [...] clean since 06/21/2018. Went to treatment at [facility] for 9 months Mitral regurgitation Murmur Rotator [...] (FLONASE) 50 mcg/actuation nasal spray Use 1 [place] in the nose once daily as needed. [...] Units three times daily with meal Insulin [place], Disposable, (BD ULTRAFINE III MINI PEN) 31 gauge x 3/16 ndle Use new needle with each insulin injection 4 times a day blood sugar diagnostic (MobPanelUCH VERIO) test strip Test blood sugar(s) 4 [...] pleural effusion SBE prophylaxis reviewed Renay Funk APRN.AMBULANCE ATTENDANT documented in this encounterKettering Health Behavioral Medical Center07-25-2022 Miscellaneous Notes* Telephone Encounter - Renay Maher [...] name. Sunday Sharif RN documented in this encounterKettering Health Behavioral Medical Center07-19-2022 History of Present illness Narrative* Roscoe Arias MD - 01/26/2022 10:24 AM EDT Thoracic and Cardiovascular Surgery [facility] CARDIOTHORACIC CLINIC NOTE CHART COPY DO NOT DISCARD Patient Type: Established Visit to determine Surgery: Yes PCP: To use this Smartlink, specify the provider ID whose address you want to display, e.g., .PROVADDR[1(where 1 is the provider ID). Referring Physician:: Abhinav Garrett [id number] [id number] Mr. Luisito Zhong returns to clinic today [...] mail. Roscoe Arias MD documented in this encounterKettering Health Behavioral Medical Center07-18-2022 History of Present illness Narrative* Remi Lyn [...] where to check in documented in this encounterKettering Health Behavioral Medical Center07-18-2022 History of Present illness Narrative* Dayday Capps [...] with the prior echocardiographic exam performed on 12/31/21. This was [...] clean since 06/21/2018. Went to treatment at [facility] for 9 months Mitral regurgitation Murmur Rotator [...] (FLONASE) 50 mcg/actuation nasal spray Use 1 [place] in the nose once daily as needed. [...] as needed for Pain. Take withfood. Insulin [place], Disposable, (BD ULTRAFINE III MINI PEN) 31 [...] of the abdomen with contrast, if available. Cage Cashier: [facility] Transcribe Date/Time: Dec 31 2021 11:00A Dictated by : SHELBY COREY MD This examination was interpreted and the report reviewed and electronically signed by: RUBÉN MONSIVAIS MD on Dec 31 2021 2:19PM EST XR CHEST 2V FRONTAL/LAT Collection Time: 12/31/21 10:10 AM Impression IMPRESSION: No acute radiographic abnormality. Cage Cashier: [facility] Transcribe Date/Time: Dec 31 2021 3:14P Dictated [...] and consent discussed: yes. Patient / Responsible Libertarian agrees to proceed: yes Patient / Surrogate agrees to blood products: Yes Instructions Given to Patient: Instructions located in the after visit summary. Patient given verbal and written preop instructions and voices comprehension and compliance. Signature: Dayday Capps MD Patient Name: Luisito Zhong Date: January 25, 2022 Time: 1:35 PM Pager/Contact #: documented in this encounterKettering Health Behavioral Medical Center07-18-2022 History of Present illness Narrative* Remi Lyn [...] (FLONASE) 50 mcg/actuation nasal spray Use 1 [place] in the nose once daily as needed. [...] as needed for Pain. Take withfood. Insulin [place], Disposable, (BD ULTRAFINE III MINI PEN) 31 [...] clean since 06/21/2018. Went to treatment at [facility] for 9 months Mitral regurgitation Murmur Rotator [...] HEENT: Dental Clearance DERM: Denies Dermatological Complaints ALFALFA DEHYDRATOR OPERATOR: Denies Neurological Complaints RESP: SOB CARD: Angina , MR GI: Denies Gastrointestinal Complaints : Denies complaints [...] of the abdomen with contrast, if available. Cage Cashier: [facility] Transcribe Date/Time: Dec 31 2021 11:00A Dictated [...] leaflets and mild aortic regurgitation (RF 11%). Cage Cashier: [facility] Transcribe Date/Time: Jan 22 2022 4:27P Dictated by : JERRICA LOWRY MD This examination was interpreted and the report reviewed and electronically signed by: SUKHDEV DENG MD on Jan 22 2022 5:25PM EST Complete Results CXR: XR CHEST 2V FRONTAL/LAT Result Date: 12/31/2021 IMPRESSION: No acute radiographic abnormality. Cage Cashier: BOYD Transcribe Date/Time: Dec 31 2021 3:14P Dictated [...] and Physical dated 12/31/2021 documented in this encounterKet[facility]07-15-[facility]22 History of Present illness Narrative* Lesia Milan RRT - 01/22/2022 12:57 PM EDT PULM FUNCTION SMARTBLOCK: Provider: Roscoe Arias MD Spirometry: 1 DLCO: 1 System: MC2 - [id number] documented in this encounterKettering [facility]07-15-2022 History of Present illness Narrative* Leroy Talley MD - 01/22/2022 12:25 PM EDT Images from the original note were not included. [facility] DIABETES CONSULTATION REASON [...] will transition his care to another local Qc Scientist next month. The patient reports that was [...] denies recent episodes of hypoglycemia overnight or two needle machine operator. He feels hunger, diaphoresis, weakness when his [...] clean since 06/21/2018. Went to treatment at [facility] for 9 months Mitral regurgitation Murmur Rotator [...] (FLONASE) 50 mcg/actuation nasal spray Use 1 [place] in the nose once daily as needed. [...] as needed for Pain. Take withfood. Insulin [place], Disposable, (BD ULTRAFINE III MINI PEN) 31 [...] CGM with the help of his local Qc Scientist. I agree that he would benefit from [...] the patient will continue his treatment with [id number] mcg per day. Mr. Zhong reports that TSH was checked in September 2021 and that it was normal. The patient plans to follow-up with his local synoptic meteorologist (maria e) once he is discharged from the hospital. He already scheduled an appointment in February. Mr. Zhong will follow-up with his PCP and with other consultants regarding his other medical problems. All questions answered today. The patient feels comfortable with the plan. Leroy Solis MD Endocrinology [facility] Metabolism [place] [facility] documented in this encounterKettering [facility]07-15-2022 Instructions* Patient Instructions* Jossie Moreno Ma - 01/22/2022 10:37 AM EDT Thank you for choosing the [facility] Department of Endocrinology, Diabetes and Metabolism. Being able to provide excellent health care has allowed us to be # 3 in the country according to [employer]. Did you know that you need to call 48 hours in advance of your scheduled visit, if you are unable to make your appointment? The [facility]in[facility] [place] thanks you for your commitment, because patients not showing to their appointment results in a lost opportunity for patients to receive world class health care at the [facility]. To Cancel an appointment, please choose one of the following: - Call the Appointment Call Center at [phone] - From [facility], Go to Appointments Cancel Appts If cancelling, consider your need to reschedule to prevent further delays in your care. To Schedule an appointment, please choose one of the following: - Call the Appointment Call Center at [phone] - From [facility], Go to Appointments Request an Appt + documented in this encounterKettering [facility]06-24-2022 Miscellaneous Notes* Telephone Encounter - Josselyn Rausch [...] n/a Valve/TAVR/TEVAR/Myectomy/ascending aorta Dental clearance/Dental Consult at F Patient will see local dentist. CABG surgery [...] TCI. OK to schedule documented in this encounterKettering [facility]06-24-2022 History of Present illness Narrative* Roscoe Arias MD - 01/01/2022 7:29 AM EDT Images from the original note were not included. Thoracic and Cardiovascular Surgery [facility] SURGICAL STAFF CONSULT Patient Type: CONSULT Visit to determine Surgery: YES PCP: To use this Smartlink, specify the provider ID whose address you want to display, e.g., .PROVADDR[1(where 1 is the provider ID). Referring Physician: Luz Maria Perez MD [address] [place] [id number] HPI: Mr. Luisito Zhong is a seen [...] letter. Roscoe Arias MD documented in this encounterKettering [facility]06-23-2022 History of Present illness Narrative* RT De(R) [...] IV DATA: Not applicable SIGNED BY: RT De(R) December 31, 2021 10:43 AM documented in this encounterKettering Health Behavior[facility] Center06-23-2022 History of Present illness Narrative* RT Macario(R) - 12/31/2021 10:00 AM EDT RADIOLOGY SERVICE PROGRESS NOTE DATE OF SERVICE: December 31, 2021 TIME OF SERVICE: 10:15 AM EVENT: PT REMOVED AN INSULIN PUMP FOR THE XRAY. ADDITIONAL EVENT DETAILS: N/A SIGNATURE: RT Macario([place]) PATIENT NAME: Luisito Zhong DATE: December 31, 2021 TIME: 10:42 AM PAGER/CONTACT #: [phone] * RT Macario(R) - 12/31/2021 10:00 AM EDT Radiology Service [...] 31, 2021 10:15 AM documented in this encounterKettering [facility]06-23-2022 History of Present illness Narrative* Abhinav Garrett MD - 12/31/2021 7:15 AM EDT Images from the original note were not included. Heart and Vascular [place] Joseline Powers Department of Cardiovascular Medicine SECTION OF CARDIOVASCULAR IMAGING OUTPATIENT VISIT DATE December 31, 2021 OUTPATIENT VISIT TYPE NEW PRIMARY CARE PHYSICIAN: To use this Smartlink, specify the provider ID whose address you want to display, e.g., .PROVADDR[1(where 1 is the provider ID). REFERRING PHYSICIAN: Roscoe Arias [id number] [facility] [id number] CHIEF COMPLAINT: Patient presents with: Dyspnea On [...] is a 41 year old male from [place], [place] presenting to Cardiology Imaging for pre-operative evaluation for aortic stenosis. He was last seen at [facility] on 11/03/[address] Glenda Villagran. [...] clean since 06/21/2018. Went to treatment at [facility] for 9 months Mitral regurgitation Murmur Rotator [...] (FLONASE) 50 mcg/actuation nasal spray Use 1 [place] in the nose once daily as needed. [...] as needed for Pain. Take withfood. Insulin [place], Disposable, (BD ULTRAFINE III MINI PEN) 31 gauge x 3/16 ndle Use new needle with each insulin injection 4 times a day blood sugar diagnostic (FlexyMindTOUCH VERIO) test strip Test blood sugar(s) 4 [...] coordinated. CARDIOVASCULAR MEDICINE TESTING: OUTSIDE HOSPITAL IMAGING: OSH Echo 10/07/21: SUMMARY: 1. Left ventricle: Systolic [...] well visualized. Further evaluation may be necessary. OSH [facility] 09/23/21: SUMMARY: 1. Left ventricle: The [...] is moderate regurgitation (vena contracta 0.39 cm). OSH Right and Left Heart Cath 11/12/2021: 1. [...] as obtained by others. CONTACT INFORMATION: Christina Rosado MD, FRACP, FAC Staff Scholastic Aptitude Test Grader, Section of Cardiovascular Imaging, Department of Cardiovascular Medicine, Heart, Vascular and Thoracic [place], [facility] Body Stylistspecialized language instructor, [facility], [facility] [address], [address] [place] [address] Appointments: [phone], Office phone: [phone], Office fax: [phone] documented in this encounterKettering [facility]04-29-2022 Miscellaneous Notes* Telephone Encounter - Josselyn Rausch RN - 11/06/2021 12:46 PM EDT Records reviewed by Dr. Arias who wishes to offer evaluation. Spoke with patient who agrees to proceed with scheduling process. He has prescheduled a cardiac cath and cardiac MRI at [facility] next week. He will be in touch with Dr. Arias' office once those tests have been completed in order to send the results for Dr. Arias' review. * Telephone Encounter - Roscoe Arias MD - 11/05/2021 11:41 AM EDT [...] TTE - 09/23/21 Epic [facility] 10/07/21 in [facility] documented in this encounterKettering [facility]04-19-2022 Miscellaneous Notes* Telephone Encounter - Beatriz Harris - 10/27/2021 1:29 PM EDT IN * Telephone Encounter - Betty Ovalles - 10/27/2021 1:02 PM EDT Insurance Card(s) scanned into [facility] Please register/advise Thank You! documented in this encounterKettering Health [facility] Center04-19-2022 Miscellaneous Notes* Telephone Encounter - Dony Estevez - 10/27/2021 11:07 AM EDT Patient: Luisito Zhong Date of : 1980 Patient phone number: [phone] Referring Provider for the encounter: Dr. Luz Maria Perez's Requesting Provider: Any Reason for requesting visit (RFV/signs and symptoms/diagnosis): removal of Subaortic Membrane Person calling: caregiver: Vamshi Return call to: caregiver: Vamshi Medical Records/Insurance Card scanned into [employer]: No Comments: Please contact the office to get the patient referral and medical report. Would like the patient to be seen by Dr. Roscoe Arias documented in this encounterKettering Health Behavioral [facility] Center01-12-2022 Evaluation + Plan note Extracted from: Title:History [...] Appointments Appointment Date:07/24/2021 10:00:00 AM Scheduled Provider: Location:[facility]O [facility] Appointment Type:ENDO Nurse Ipro Insert Appointment Date:08/10/2021 12:45:00 PM Scheduled Provider:KRISTAL DESAI MD Location:[facility] Appointment Type:ENDO [facility] Scheduled Tests Laboratory* Thyroid Stimulating Hormone 12/16/20 [...] Radiology* MRI Spine Lumbar w/o Contrast 02/12/21 [facility] 01-11-2022 Hospital Discharge instructions Follow Up Care 07/21/2021 17:24:28 With:KRISTAL DESAI MD, [facility] Address: [phone] When:5 to 7 days Comments:DKA follow up, insulin pump With:Follow up with primary care provider Address:Unknown When:2-4 days [facility] 02-17-2016 History of Past illness Narrative* Problem Noted Date Resolved Date HTN (hypertension) 08/27/2015 documented as of this encounter (statuses as of 10/27/2021) [facility] illness Narrative* Problem Noted Date Resolved Date HTN (hypertension) 08/27/2015 documented as of this encounter (statuses as of 11/06/2021) [facility] illness Narrative* Problem Noted Date Resolved Date HTN (hypertension) 08/27/2015 documented as of this encounter (statuses as of 01/01/2022) [facility] Narrative* Problem Noted Date Resolved Date HTN (hypertension) 08/27/2015 documented as of this encounter (statuses as of 01/01/2022) [facility] Narrative* Problem Noted Date Resolved Date HTN (hypertension) 08/27/2015 documented as of this encounter (statuses as of 01/01/2022) [address]17[address]2016 History of Past illness Narrative* Problem Noted Date Resolved Date HTN (hypertension) 08/27/2015 documented as of this encounter (statuses as of 01/01/2022) [address]17[address]2016 History of Past illness Narrative* Problem Noted Date Resolved Date HTN (hypertension) 08/27/2015 documented as of this encounter (statuses as of 01/22/2022) [address]17[address]2016 History of Past illness Narrative* Problem Noted Date Resolved Date HTN (hypertension) 08/27/2015 documented as of this encounter (statuses as of 01/25/2022) [address]17[address]2016 History of Past illness Narrative* Problem Noted Date Resolved Date HTN (hypertension) 08/27/2015 documented as of this encounter (statuses as of 01/25/2022) [address]17[address]2016 History of Past illness Narrative* Problem Noted Date Resolved Date HTN (hypertension) 08/27/2015 documented as of this encounter (statuses as of 01/26/2022) [address]17[address]2016 History of Past illness Narrative* Problem Noted Date Resolved Date HTN (hypertension) 08/27/2015 documented as of this encounter (statuses as of 01/29/2022) [address]17[address]2016 History of Past illness Narrative* Problem Noted Date Resolved Date HTN (hypertension) 08/27/2015 documented as of this encounter (statuses as of 02/01/2022) [address]17[address]2016 History of Past illness Narrative* Problem Noted Date Resolved Date HTN (hypertension) 08/27/2015 documented as of this encounter (statuses as of 02/03/2022) [address]17[address]2016 History of Past illness Narrative* Problem Noted Date Resolved Date HTN (hypertension) 08/27/2015 documented as of this encounter (statuses as of 02/04/2022) [address]17[address]2016 History of Past illness Narrative* Problem Noted Date Resolved Date HTN (hypertension) 08/27/2015 documented as of this encounter (statuses as of 02/08/2022) [address]17[address]2016 History of Past illness Narrative* Problem Noted Date Resolved Date HTN (hypertension) 08/27/2015 documented as of this encounter (statuses as of 02/09/2022) [address]17[address]2016 History of Past illness Narrative* Problem Noted Date Resolved Date HTN (hypertension) 08/27/2015 documented as of this encounter (statuses as of 02/09/2022) [address]17[address]2016 History of Past illness Narrative* Problem Noted Date Resolved Date HTN (hypertension) 08/27/2015 documented as of this encounter (statuses as of 02/15/2022) [address]17[address]2016 History of Past illness Narrative* Problem Noted Date Resolved Date HTN (hypertension) 08/27/2015 documented as of this encounter (statuses as of 02/18/2022) [address]17[address]2016 History of Past illness Narrative* Problem Noted Date Resolved Date HTN (hypertension) 08/27/2015 documented as of this encounter (statuses as of 02/23/2022) [address]17[address]2016 History of Past illness Narrative* Problem Noted Date Resolved Date HTN (hypertension) 08/27/2015 documented as of this encounter (statuses as of 05/05/2022) [address]17[address]2016 History of Past illness Narrative* Problem Noted Date Resolved Date HTN (hypertension) 08/27/2015 documented as of this encounter (statuses as of 06/28/2022) [address]17[address]2016 History of Past illness Narrative* Problem Noted Date Resolved Date HTN (hypertension) 08/27/2015 documented as of this encounter (statuses as of 06/29/2022) [address]17[address]2016 History of Past illness Narrative* Problem Noted Date Resolved Date HTN (hypertension) 08/27/2015 documented as of this encounter (statuses as of 06/29/2022) [address]17[address]2016 History of Past illness Narrative* Problem Noted Date Resolved Date HTN (hypertension) 08/27/2015 documented as of this encounter (statuses as of 06/30/2022) [address]17[address]2016 History of Past illness Narrative* Problem Noted Date Resolved Date HTN (hypertension) 08/27/2015 documented as of this encounter (statuses as of 07/02/2022) [address]17[address]2016 History of Past illness Narrative* Problem Noted Date Resolved Date HTN (hypertension) 08/27/2015 documented as of this encounter (statuses as of 07/02/2022) [address]17[address]2016 History of Past illness Narrative* Problem Noted Date Resolved Date HTN (hypertension) 08/27/2015 documented as of this encounter (statuses as of 07/13/2022) [address]17[address]2016 History of Past illness Narrative* Problem Noted Date Resolved Date HTN (hypertension) 08/27/2015 documented as of this encounter (statuses as of 07/15/2022) [address]17[address]2016 History of Past illness Narrative* Problem Noted Date Resolved Date HTN (hypertension) 08/27/2015 documented as of this encounter (statuses as of 07/15/2022) [address]17[address]2016 History of Past illness Narrative* Problem Noted Date Resolved Date HTN (hypertension) 08/27/2015 documented as of this encounter (statuses as of 07/15/2022) [address]17[address]2016 History of Past illness Narrative* Problem Noted Date Resolved Date HTN (hypertension) 08/27/2015 documented as of this encounter (statuses as of 07/16/2022) [address]17[address]2016 History of Past illness Narrative* Problem Noted Date Resolved Date HTN (hypertension) 08/27/2015 documented as of this encounter (statuses as of 07/16/2022) [address]17[address]2016 History of Past illness Narrative* Problem Noted Date Resolved Date HTN (hypertension) 08/27/2015 documented as of this encounter (statuses as of 07/22/2022) [address]17[address]2016 History of Past illness Narrative* Problem Noted Date Resolved Date HTN (hypertension) 08/27/2015 documented as of this encounter (statuses as of 07/23/2022) [address]17[address]2016 History of Past illness Narrative* Problem Noted Date Resolved Date HTN (hypertension) 08/27/2015 documented as of this encounter (statuses as of 08/02/2022) [address]17[address]2016 History of Past illness Narrative* Problem Noted Date Resolved Date HTN (hypertension) 08/27/2015 documented as of this encounter (statuses as of 08/26/2022) [address]17[address]2016 History of Past illness Narrative* Problem Noted Date Resolved Date HTN (hypertension) 08/27/2015 documented as of this encounter (statuses as of 09/03/2022) [address]17[address]2016 History of Past illness Narrative* Problem Noted Date Resolved Date HTN (hypertension) 08/27/2015 documented as of this encounter (statuses as of 09/07/2022) [address]17[address]2016 History of Past illness Narrative* Problem Noted Date Resolved Date HTN (hypertension) 08/27/2015 documented as of this encounter (statuses as of 09/14/2022) [address]17[address]2016 History of Past illness Narrative* Problem Noted Date Resolved Date HTN (hypertension) 08/27/2015 documented as of this encounter (statuses as of 09/21/2022) [address]17[address]2016 History of Past illness Narrative* Problem Noted Date Resolved Date HTN (hypertension) 08/27/2015 documented as of this encounter (statuses as of 09/30/2022) [address]17[address]2016 History of Past illness Narrative* Problem Noted Date Resolved Date HTN (hypertension) 08/27/2015 documented as of this encounter (statuses as of 11/23/2022) [address]17[address]2016 History of Past illness Narrative* Problem Noted Date Resolved Date HTN (hypertension) 08/27/2015 documented as of this encounter (statuses as of 12/10/2022) [address]17[address]2016 History of Past illness Narrative* Problem Noted Date Resolved Date HTN (hypertension) 08/27/2015 documented as of this encounter (statuses as of 12/10/2022) [address]17[address]2016 History of Past illness Narrative* Problem Noted Date Resolved Date HTN (hypertension) 08/27/2015 documented as of this encounter (statuses as of 12/13/2022) [address]17[address]2016 History of Past illness Narrative* Problem Noted Date Resolved Date HTN (hypertension) 08/27/2015 documented as of this encounter (statuses as of 12/24/2022) [address]17[address]2016 History of Past illness Narrative* Problem Noted Date Resolved Date HTN (hypertension) 08/27/2015 documented as of this encounter (statuses as of 12/28/2022) [address]17[address]2016 History of Past illness Narrative* Problem Noted Date Resolved Date HTN (hypertension) 08/27/2015 documented as of this encounter (statuses as of 01/07/2023) [address]17[address]2016 History of Past illness Narrative* Problem Noted Date Diagnosed Date Resolved Date HTN (hypertension) 6 documented as of this encounter (statuses as of 01/24/2023) [facility] Narrative* Problem Noted Date Diagnosed Date Resolved Date HTN (hypertension) 6 documented as of this encounter (statuses as of 02/05/2023) [address]17[address]2016 History of Past illness Narrative* Problem Noted Date Diagnosed Date Resolved Date HTN (hypertension) 6 documented as of this encounter (statuses as of 02/07/2023) [address]17[address]2016 History of Past illness Narrative* Problem Noted Date Diagnosed Date Resolved Date HTN (hypertension) 6 documented as of this encounter (statuses as of 02/07/2023) [address]17[address]2016 History of Past illness Narrative* Problem Noted Date Diagnosed Date Resolved Date HTN (hypertension) 6 documented as of this encounter (statuses as of 02/08/2023) [address]17[address]2016 History of Past illness Narrative* Problem Noted Date Diagnosed Date Resolved Date HTN (hypertension) 6 documented as of this encounter (statuses as of 02/11/2023) [facility] Narrative* Problem Noted Date Diagnosed Date Resolved Date HTN (hypertension) 6 documented as of this encounter (statuses as of 02/14/2023) [facility] of Past illness Narrative* Problem Noted Date Diagnosed Date Resolved Date HTN (hypertension) 6 documented as of this encounter (statuses as of 02/14/2023) [address]17[address]2016 History of Past illness Narrative* Problem Noted Date Diagnosed Date Resolved Date HTN (hypertension) 6 documented as of this encounter (statuses as of 02/15/2023) [address]17[address]2016 History of Past illness Narrative* Problem Noted Date Diagnosed Date Resolved Date HTN (hypertension) 6 documented as of this encounter (statuses as of 02/17/2023) [address]17[address]2016 History of Past illness Narrative* Problem Noted Date Diagnosed Date Resolved Date HTN (hypertension) 6 documented as of this encounter (statuses as of 02/21/2023) [address]17[address]2016 History of Past illness Narrative* Problem Noted Date Diagnosed Date Resolved Date HTN (hypertension) 6 documented as of this encounter (statuses as of 02/21/2023) [address]17[address]2016 History of Past illness Narrative* Problem Noted Date Diagnosed Date Resolved Date HTN (hypertension) 6 documented as of this encounter (statuses as of 02/22/2023) [address]17[address]2016 History of Past illness Narrative* Problem Noted Date Diagnosed Date Resolved Date HTN (hypertension) 6 documented as of this encounter (statuses as of 02/25/2023) [address]17[address]2016 History of Past illness Narrative* Problem Noted Date Diagnosed Date Resolved Date HTN (hypertension) 6 documented as of this encounter (statuses as of 03/01/2023) [address]17[address]2016 History of Past illness Narrative* Problem Noted Date Diagnosed Date Resolved Date HTN (hypertension) 6 documented as of this encounter (statuses as of 03/04/2023) [address]17[address]2016 History of Past illness Narrative* Problem Noted Date Diagnosed Date Resolved Date HTN (hypertension) 6 documented as of this encounter (statuses as of 03/07/2023) [address]17[address]2016 History of Past illness Narrative* Problem Noted Date Diagnosed Date Resolved Date HTN (hypertension) 6 documented as of this encounter (statuses as of 05/19/2023) [address]17[address]2016 History of Past illness Narrative* Problem Noted Date Diagnosed Date Resolved Date HTN (hypertension) 6 documented as of this encounter (statuses as of 05/25/2023) [address]17[address]2016 History of Past illness Narrative* Problem Noted Date Diagnosed Date Resolved Date HTN (hypertension) 6 documented as of this encounter (statuses as of 05/25/2023) [address]17[address]2016 History of Past illness Narrative* Problem Noted Date Diagnosed Date Resolved Date HTN (hypertension) 6 documented as of this encounter (statuses as of 05/26/2023) [address]17[address]2016 History of Past illness Narrative* Problem Noted Date Diagnosed Date Resolved Date HTN (hypertension) 6 documented as of this encounter (statuses as of 08/16/2023) [facility] Narrative* Problem Noted Date Diagnosed Date Resolved Date HTN (hypertension) 6 documented as of this encounter (statuses as of 09/29/2023) [facility] Future Appointments Appointment Date:01/30/2024 09:30:00 AM Scheduled Provider:KRISTAL DESAI MD Location:[facility] Appointment Type:ENDO OV [facility] Evaluation + Plan note Future Appointments Appointment Date:04/16/2024 03:00:00 PM Scheduled Provider:ROSCOE UMANZOR MD Location:[facility] Appointment Type:PC MANAGER LOCAL [facility] Evaluation + Plan note Future Appointments Appointment Date:07/17/2024 10:00:00 AM Scheduled Provider:ROSCOE UMANZOR MD Location:[facility] Appointment Type:PC OV Follow Up Future Scheduled Tests Laboratory* Complete Blood Count 04/17/24 [facility] Evaluation + Plan note Future Appointments Appointment Date:07/31/2024 10:00:00 AM Scheduled Provider:KRISTAL DESAI MD Location:[facility] Appointment Type:ENDO OV Appointment Date:08/27/2024 08:00:00 PM Scheduled Provider: Location:[facility] Appointment Type:SL PSG (Polysomnograph) Appointment Date:09/21/2024 09:00:00 AM Scheduled Provider:DEBBI BEE Location:[facility] Appointment Type:CV MANAGER LOCAL Appointment Date:10/24/2024 09:00:00 AM Scheduled Provider:ROSCOE UMANZOR MD Location:[facility] Appointment Type:PC OV Follow Up Future Scheduled Tests Laboratory* TSH with Reflex to FT4 04/27/24 * Complete Blood Count 04/17/24 [facility] Evaluation note* Diagnosis Shortness of breath Cough [facility] Diagnosis Right hip pain Pain in joint, pelvic region and thigh documented in this encounter [facility]* Diagnosis Acute cystitis with hematuria Acute cystitis documented in this encounter [facility] note* Diagnosis Acute cystitis with hematuria Acute cystitis documented in this encounter [facility] note* Diagnosis Dysuria documented in this encounter [facility] note* Diagnosis Type 1 diabetes mellitus with hyperglycemia (HCC) Type I (juvenile type) diabetes mellitus without mention of complication, not stated as uncontrolled Elevated liver enzymes Nonspecific elevation of levels of transaminase or lactic acid dehydrogenase (LDH) Screening for HIV (human immunodeficiency virus) Special screening examination for other specified viral diseases Acquired hypothyroidism Unspecified hypothyroidism documented in this encounter [facility] note* Diagnosis Chronic right hip pain Pain in joint, pelvic region and thigh documented in this encounter [facility] note* Diagnosis Chronic right hip pain Pain in joint, pelvic region and thigh documented in this encounter [facility] note* Diagnosis Type 1 diabetes mellitus without complication (HCC) Type I (juvenile type) diabetes mellitus without mention of complication, not stated as uncontrolled Acquired hypothyroidism Unspecified hypothyroidism Chronic fatigue Other malaise and fatigue documented in this encounter [facility] note* Diagnosis Acquired hypothyroidism Unspecified hypothyroidism documented in this encounter [facility] note* Diagnosis Subvalvar aortic stenosis Congenital subaortic stenosis LVH (left ventricular hypertrophy) Cardiomegaly [facility]* Diagnosis Chest pain, unspecified type- Primary documented in this [facility] Work [facility]: Evaluation [facility]* Diagnosis Subaortic membrane- Primary Congenital subaortic stenosis Shortness of breath Aortic valve disorder Aortic valve disorders documented in this encounter [facility] note* Diagnosis Subaortic membrane Congenital subaortic stenosis Shortness of breath Aortic valve disorder Aortic valve disorders documented in this encounter [facility] note* Diagnosis Subaortic membrane- Primary Congenital subaortic stenosis documented in this encounter [facility] note* Diagnosis Subaortic membrane- Primary Congenital subaortic stenosis Diabetes mellitus type 1, controlled, without complications (HCC) Type I (juvenile type) diabetes mellitus without mention of complication, not stated as uncontrolled Hypothyroidism, unspecified type Pre-operative cardiovascular examination [facility]* Diagnosis Subaortic membrane- Primary Congenital subaortic stenosis 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 I (juvenile type) diabetes mellitus with neurological manifestations, not stated as uncontrolled Dyslipidemia Other and unspecified hyperlipidemia Obesity (BMI 30-39.9) Obesity, unspecified Dyspnea, unspecified type Ex-smoker Personal history of tobacco use, presenting hazards to health documented in this encounter [facility] note* Diagnosis Pre-op exam- Primary Preoperative examination, unspecified Dyspnea, unspecified type Subaortic membrane Congenital subaortic stenosis Diabetes mellitus type 1, controlled, without complications (HCC) Type I (juvenile type) diabetes mellitus without mention of complication, not stated as uncontrolled Hypothyroidism, unspecified type Pre-operative cardiovascular examination documented in this encounter [facility] note* Diagnosis Type 1 diabetes mellitus without [...] Pre-operative cardiovascular examination documented in this encounter [facility] note* Diagnosis Encounter for preoperative anesthesiology assessment for cardiac surgery- Primary Subaortic membrane Congenital subaortic stenosis Diabetes mellitus type 1, controlled, without complications (HCC) Type I (juvenile type) diabetes mellitus without mention of complication, not stated as uncontrolled Hypothyroidism, unspecified type Pre-operative cardiovascular examination documented in this encounter [facility] note* Diagnosis Pre-op testing- Primary Preoperative examination, unspecified Subaortic membrane Congenital subaortic stenosis Diabetes mellitus type 1, controlled, without complications (HCC) Type I (juvenile type) diabetes mellitus without mention of complication, not stated as uncontrolled Hypothyroidism, unspecified type Pre-operative cardiovascular examination documented in this encounter [facility] note* Diagnosis Pre-operative cardiovascular examination- Primary documented in this encounter [facility] note* Diagnosis Atelectasis- Primary Pulmonary collapse Nonrheumatic mitral valve regurgitation [facility] Atelectasis- Primary Pulmonary collapse Post-op pain Other acute postoperative pain 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 I (juvenile type) diabetes mellitus with neurological manifestations, not stated as uncontrolled [facility] Diagnosis Wound drainage- Primary Open wound(s) (multiple) of unspecified site(s), without mention of complication [facility] Diagnosis Localized swelling, mass and lump, trunk- Primary S/P AVR (aortic valve replacement) Heart valve replaced by other means S/P TVR (tricuspid valve repair) Other postprocedural status Wound infection after surgery Other postoperative infection [facility]* Diagnosis Visit for wound check- Primary Encounter for other specified aftercare Wound disruption, post-op, skin, initial encounter Post-op pain Other acute postoperative pain [facility]* Diagnosis Type 1 diabetes mellitus without complication (HCC)- Primary Type I (juvenile type) diabetes mellitus without mention of complication, not stated as uncontrolled Type 1 diabetes mellitus without complication (HCC)- Primary Type I (juvenile type) diabetes mellitus without mention of complication, not stated as uncontrolled [facility] Diagnosis NO SHOW- Primary [facility] Diagnosis Type 1 diabetes mellitus without complication (HCC) Type I (juvenile type) diabetes mellitus without mention of complication, not stated as uncontrolled [facility]* Diagnosis Dental infection- Primary Acute apical periodontitis of pulpal origin Medication refill Issue of repeat prescriptions SOB (shortness of breath) Shortness of breath [facility]* Diagnosis Post-op pain Other acute postoperative pain [facility] Diagnosis Type 1 diabetes mellitus with hyperglycemia (HCC)- Primary Type I (juvenile type) diabetes mellitus without mention of complication, not stated as uncontrolled Insulin pump status High risk medication use Encounter for long-term (current) use of other medications [facility] Diagnosis Type 1 diabetes mellitus with hyperglycemia (HCC)- Primary Type I (juvenile type) diabetes mellitus without mention of complication, not stated as uncontrolled [facility]* Diagnosis Type 1 diabetes mellitus with hyperglycemia (HCC) Type I (juvenile type) diabetes mellitus without mention of complication, not stated as uncontrolled documented in this encounter [facility] note* Diagnosis Type 1 diabetes mellitus with diabetic polyneuropathy (HCC)- Primary Type I (juvenile type) diabetes mellitus with neurological manifestations, not stated as uncontrolled documented in this encounter [facility] note* Diagnosis Type 1 diabetes mellitus with hyperglycemia (HCC) Type I (juvenile type) diabetes mellitus without mention of complication, not stated as uncontrolled documented in this encounter [facility] note* Diagnosis Dyspnea on exertion- Primary Other dyspnea and respiratory abnormality Subvalvar aortic stenosis Congenital subaortic stenosis S/P AVR (aortic valve replacement) Heart valve replaced by other means Subvalvular aortic stenosis Congenital subaortic stenosis Substance abuse ([facility] ([facility]) Other, mixed, or unspecified nondependent drug abuse, unspecified History of drug abuse ([facility] ([facility]) Other, mixed, or unspecified nondependent drug abuse, in remission documented in this encounter [facility] note* Diagnosis Medication refill- Primary Issue of repeat prescriptions documented in this encounter [facility] note* Diagnosis Simple chronic bronchitis (HCC)- Primary Simple chronic bronchitis Type 1 diabetes mellitus with hyperglycemia ([facility]) Type I (juvenile type) diabetes mellitus without mention of complication, not stated as uncontrolled documented in this encounter [facility] note* Diagnosis 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 I (juvenile type) diabetes mellitus with neurological manifestations, not stated as uncontrolled Insulin pump status documented in this encounter [facility] note* Diagnosis No-show for appointment- Primary documented in this encounter [facility] note* Diagnosis Simple chronic bronchitis (HCC) Simple chronic bronchitis Type 1 diabetes mellitus with hyperglycemia (HCC) Type I (juvenile type) diabetes mellitus without mention of complication, not stated as uncontrolled documented in this encounter [facility] note* Diagnosis Type 1 diabetes mellitus with diabetic polyneuropathy (HCC)- Primary Type I (juvenile type) diabetes mellitus with neurological manifestations, not stated as uncontrolled Simple chronic bronchitis (HCC) Simple chronic bronchitis History of asthma Personal history of other diseases of respiratory system Shortness of breath documented in this encounter [facility] note* Diagnosis Type 1 diabetes mellitus with hyperglycemia (HCC) Type I (juvenile type) diabetes mellitus without mention of complication, not stated as uncontrolled documented in this encounter [facility] note* Diagnosis Type 1 diabetes mellitus with diabetic polyneuropathy (HCC)- Primary Type I (juvenile type) diabetes mellitus with neurological manifestations, not stated as uncontrolled documented in this encounter [facility] note* Diagnosis Type 1 diabetes mellitus with hyperglycemia (HCC)- Primary Type I (juvenile type) diabetes mellitus without mention of complication, not stated as uncontrolled High risk medication use Encounter for long-term (current) use of other medications Illicit drug use Other, mixed, or unspecified nondependent drug abuse, unspecified documented in this encounter [facility] note* Diagnosis 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 I (juvenile type) diabetes mellitus with neurological manifestations, not stated as uncontrolled Simple chronic bronchitis (HCC) Simple chronic bronchitis History of asthma Personal history of other diseases of respiratory system Shortness of breath documented in this encounter [facility] note* Diagnosis Type 1 diabetes mellitus with hyperglycemia (HCC) Type I (juvenile type) diabetes mellitus without mention of complication, not stated as uncontrolled 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 I (juvenile type) diabetes mellitus with neurological manifestations, not stated as uncontrolled Insulin pump status documented in this encounter [facility] note* Diagnosis Type 1 diabetes mellitus with hyperglycemia (HCC)- Primary Type I (juvenile type) diabetes mellitus without mention of complication, not stated as uncontrolled High risk medication use Encounter for long-term (current) use of other medications Illicit drug use Other, mixed, or unspecified nondependent drug abuse, unspecified Insulin pump status documented in this encounter [facility] noteNo assessment information availableWC[facility]: Evaluation [facility]* Diagnosis FALGUNI (obstructive sleep apnea)- Primary Obstructive sleep apnea (adult) (pediatric) Dyspnea on exertion Other dyspnea and respiratory abnormality Subaortic membrane S/P AVR (aortic valve replacement) Heart valve replaced by other means Substance abuse ([facility]/HCC) (HCC) Other, mixed, or unspecified nondependent drug abuse, unspecified Mixed hyperlipidemia documented in this encounter [facility] note* Diagnosis NO SHOW- Primary documented in this encounter [facility] note* Diagnosis Simple chronic bronchitis (HCC) Simple chronic bronchitis History of asthma Personal history of other diseases of respiratory system Shortness of breath [facility]* Diagnosis 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 I (juvenile type) diabetes mellitus with neurological manifestations, not stated as uncontrolled Type 1 diabetes mellitus with hyperglycemia (HCC) Type I (juvenile type) diabetes mellitus without mention of complication, not stated as uncontrolled [facility]* Diagnosis 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 I (juvenile type) diabetes mellitus with neurological manifestations, not stated as uncontrolled documented [facility]* Diagnosis Type 1 diabetes mellitus with [...] prostate documented [facility]* Diagnosis Vitamin D deficiency- Primary Unspecified vitamin D deficiency 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 I (juvenile type) diabetes mellitus with neurological manifestations, not stated as uncontrolled [facility]* Diagnosis APPOINTMENT CANCELLED- Primary documented [facility] this [facility]* Diagnosis Type 1 diabetes mellitus with diabetic polyneuropathy (HCC)- Primary Type I (juvenile type) diabetes mellitus with neurological manifestations, not stated as uncontrolled Type 1 diabetes mellitus with hyperglycemia (HCC) Type I (juvenile type) diabetes mellitus without mention of complication, not stated as uncontrolled Acquired hypothyroidism Unspecified hypothyroidism documented [facility] this [facility]* Diagnosis 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 I (juvenile type) diabetes mellitus with neurological manifestations, not stated as uncontrolled documented [facility] this [facility]* Diagnosis 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 I (juvenile type) diabetes mellitus with neurological manifestations, not stated as uncontrolled [facility]* Diagnosis Medication refill- Primary Issue of repeat prescriptions 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 I (juvenile type) diabetes mellitus with neurological manifestations, not stated as uncontrolled Acquired hypothyroidism Unspecified hypothyroidism documented [facility]* Diagnosis 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 I (juvenile type) diabetes mellitus with neurological manifestations, not stated as uncontrolled documented in this encounter [facility] note* Diagnosis 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 Subaortic membrane S/P AVR (aortic valve replacement) Heart valve replaced by other means History of cocaine use documented in this encounter [facility] note* Diagnosis DKA, type 1, not at goal ([facility] ([facility])- Primary Acute kidney injury ([facility] ([facility]) Diabetic ketoacidosis without coma associated with type 1 diabetes mellitus ([facility] ([facility]) Lactic acidosis Acidosis DKA, type 1, not at goal ([facility] ([facility]) documented in this encounter [facility] note* Diagnosis Nonrheumatic aortic valve stenosis- Primary Aortic valve disorders documented in this encounter [facility] note* Diagnosis Aortic valve disorder- Primary Aortic valve disorders documented in this encounter [facility] note* Diagnosis Aortic valve insufficiency, etiology of cardiac valve disease unspecified- Primary Tricuspid valve insufficiency, unspecified etiology Mitral valve insufficiency, unspecified etiology [facility]* Diagnosis S/P AVR (aortic valve replacement)- Primary Heart valve replaced by other means 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 Substance abuse ([facility] ([facility]) Other, mixed, or unspecified nondependent drug abuse, unspecified Dyspnea on exertion Other dyspnea and respiratory abnormality documented in this encounter [facility] note* Diagnosis S/P transesophageal echocardiogram ([facility])- Primary [facility]* Diagnosis Aortic valve disorder Aortic valve disorders [facility]* Diagnosis Aortic valve disorder Aortic valve disorders documented in this encounter [facility] note* Diagnosis Retained tooth root- Primary Retained [...] Aortic valve disorders [facility]* Diagnosis Pre-operative cardiovascular examination- Primary Type [...] Aortic valve disorders documented in this encounter [facility] note* Diagnosis Type 1 diabetes mellitus without [...] Aortic valve disorders documented in this encounter [facility] note* Diagnosis Type 1 diabetes mellitus without [...] Aortic valve disorders documented in this encounter [facility] note* Diagnosis Pre-operative cardiovascular examination- Primary Type [...] Aortic valve disorders documented in this encounter [facility] note* Diagnosis Encounter for preoperative anesthesiology assessment for cardiac surgery- Primary Aortic valve disorder Aortic valve disorders Type 1 diabetes mellitus without complication (HCC) Type I (juvenile type) diabetes mellitus without mention of complication, not stated as uncontrolled Acquired hypothyroidism Unspecified hypothyroidism Pre-operative cardiovascular examination Aortic valve disorder Aortic valve disorders [facility]* Diagnosis Pre-op testing- Primary Preoperative examination, unspecified Aortic valve disorder Aortic valve disorders Type 1 diabetes mellitus without complication (HCC) Type I (juvenile type) diabetes mellitus without mention of complication, not stated as uncontrolled Acquired hypothyroidism Unspecified hypothyroidism Pre-operative cardiovascular examination Aortic valve disorder Aortic valve disorders [facility]* Diagnosis History of cardiac cath [Z98.890]- Primary Other postprocedural status documented [facility] this [facility]* Diagnosis Surgery follow-up- Primary Follow-up examination, following unspecified surgery [facility]* Diagnosis Surgery follow-up Follow-up examination, following unspecified surgery [facility]* Diagnosis S/P AVR- Primary Heart valve replaced by other means H/O heart valve replacement with mechanical valve Heart valve replaced by other means Atelectasis Pulmonary collapse Dyspnea, unspecified type ABLA (acute blood loss anemia) Thrombocytosis Essential thrombocythemia Pleural effusion Unspecified pleural effusion Junctional rhythm Other specified cardiac dysrhythmias Hyperlipidemia, unspecified hyperlipidemia type [facility]* Diagnosis Pleural effusion- Primary Unspecified pleural effusion documented in this [facility] Diagnosis Nonrheumatic aortic valve stenosis- Primary Aortic valve disorders S/P AVR (aortic valve replacement) Heart valve replaced by other means alf current use of anticoagulant therapy Long-term (current) [...] vitamin D deficiency [facility] Aortic valve disorder- Primary Aortic valve disorders S/P AVR (aortic valve replacement) Heart valve replaced by other means [facility] Diagnosis alf (current) use of anticoagulants- Primary Long-term (current) use of anticoagulants [facility] Diagnosis 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- Primary Long-term (current) use of anticoagulants Anticoagulation management encounter Encounter for therapeutic drug monitoring 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 Long-term (current) use of anticoagulants History of mechanical aortic valve replacement Heart valve replaced by other means [facility] Diagnosis Adhesive capsulitis of right shoulder- Primary Adhesive capsulitis of shoulder [facility] Diagnosis Anticoagulation management encounter- Primary Encounter for therapeutic drug monitoring alf current use of anticoagulant therapy Long-term (current) use of anticoagulants History of mechanical aortic valve replacement Heart valve replaced by other means 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 Long-term (current) use of anticoagulants [facility] Diagnosis Anticoagulation management encounter- Primary Encounter for therapeutic drug monitoring 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 Long-term (current) use of anticoagulants History of mechanical aortic valve replacement Heart valve replaced by other means alf (current) use of anticoagulants Long-term (current) use of anticoagulants [facility] Diagnosis Iron deficiency anemia secondary to inadequate dietary iron intake- Primary [facility] Diagnosis 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- Primary [facility] Diagnosis Anticoagulation management encounter- Primary Encounter for therapeutic drug monitoring 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 Long-term (current) use of anticoagulants History of mechanical aortic valve replacement Heart valve replaced by other means 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 Long-term (current) use of anticoagulants [facility] Diagnosis Nonrheumatic aortic valve stenosis- [...] complication, with long-term current use of insulin ([facility] Diagnosis Pleural effusion on right Unspecified pleural effusion [facility] Diagnosis Anticoagulation management encounter- Primary Encounter for therapeutic drug monitoring alf current use of anticoagulant therapy Long-term (current) use of anticoagulants History of mechanical aortic valve replacement Heart valve replaced by other means 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 Long-term (current) use of anticoagulants [facility] Diagnosis Anticoagulation management encounter- Primary Encounter for therapeutic drug monitoring 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 Long-term (current) use of anticoagulants History of mechanical aortic valve replacement Heart valve replaced by other means alf (current) use of anticoagulants Long-term (current) use of anticoagulants [facility] Diagnosis H/O mechanical aortic valve replacement- Primary Heart valve replaced by other means [facility] Diagnosis Anticoagulation management encounter- Primary Encounter for therapeutic drug monitoring alf current use of anticoagulant therapy Long-term (current) use of anticoagulants History of mechanical aortic valve replacement Heart valve replaced by other means alf (current) use of anticoagulants Long-term (current) use of anticoagulants [facility]* Diagnosis Simple chronic bronchitis (HCC) Simple chronic bronchitis History of asthma Personal history of other diseases of respiratory system Shortness of breath [facility] Diagnosis Pain in both lower extremities Type 1 diabetes mellitus with diabetic neuropathy (HCC) Type I (juvenile type) diabetes mellitus with neurological manifestations, not stated as uncontrolled 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) History of heart surgery Personal history of surgery to heart and great vessels, presenting hazards to health [facility]* Diagnosis Nonrheumatic aortic valve stenosis Aortic valve disorders S/P AVR (aortic valve replacement) Heart valve replaced by other means alf current use of anticoagulant therapy Long-term (current) use of anticoagulants [facility]* Diagnosis 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- Primary Long-term (current) use of anticoagulants History of mechanical aortic valve replacement Heart valve replaced by other means alf (current) use of anticoagulants Long-term (current) use of anticoagulants Nonrheumatic aortic valve stenosis Aortic valve disorders S/P AVR (aortic valve replacement) Heart valve replaced by other means [facility] Diagnosis History of aortic valve stenosis- Primary Personal history of other diseases of circulatory system S/P AVR (aortic valve replacement) Heart valve replaced by other means History of mechanical aortic valve replacement Heart valve replaced by other means alf current use of anticoagulant therapy Long-term (current) use of anticoagulants Exertional dyspnea Other dyspnea and respiratory abnormality Peripheral edema Edema Iron deficiency anemia secondary to inadequate dietary iron intake 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 I (juvenile type) diabetes mellitus with neurological manifestations, not stated as uncontrolled [facility]* Diagnosis Onset Date Resolution Status Admit Date Cervical myelopathy acute Septe 2024 1:18pm Cervical stenosis of spine acute March 15, 2025 1:18pm Degenerative disc disease, cervical acute March 15 1:18pm [employer] Work Phone: Evaluation note* Diagnosis H/O mechanical aortic valve replacement- Primary S/P aortic valve replacement Heart valve replaced by other means History of cocaine use Mixed hyperlipidemia Subvalvar aortic stenosis Congenital subaortic stenosis documented in this encounter [facility] note* Diagnosis Anticoagulation management encounter- Primary Encounter for therapeutic drug monitoring 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 Long-term (current) use of anticoagulants History of mechanical aortic valve replacement Heart valve replaced by other means 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 Long-term (current) use of anticoagulants documented in this encounter [facility] note* Diagnosis Type 1 diabetes mellitus with diabetic polyneuropathy (HCC)- Primary Type I (juvenile type) diabetes mellitus with neurological manifestations, not stated as uncontrolled Substance abuse (HCC) Other, mixed, or unspecified nondependent drug abuse, unspecified History of mechanical aortic valve replacement Heart valve replaced by other means Hypercholesterolemia Pure hypercholesterolemia Vitamin D deficiency Unspecified vitamin D deficiency 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 Long-term (current) use of anticoagulants [facility]* Diagnosis Anticoagulation management encounter- Primary Encounter for therapeutic drug monitoring alf current use of anticoagulant therapy Long-term (current) use of anticoagulants History of mechanical aortic valve replacement Heart valve replaced by other means alf (current) use of anticoagulants Long-term (current) use of anticoagulants documented [facility]* Diagnosis 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 I (juvenile type) diabetes mellitus with neurological manifestations, not stated as uncontrolled documented in this encounter [facility] course Narrative No data available for this section [facility] Hospital Discharge instructions* Attachments The following attachments cannot be sent through Care Everywhere. * Chest Pain (Grenadian) documented in this [facility] Work Phone: Hospital Discharge instructions No data available for this section [facility] Hospital Discharge instructions Additional Instructions Take Tylenol every 6 hours, ibuprofen every 8 hours. Maintain hydration keep a close eye on your blood sugars.[facility] Work Phone: Progress note No data available for this section [facility] Reason for referral (narrative)* Procedure Authorization (Routine) Status Reason Specialty Diagnoses / Procedures Re ferred By Contact Referred To Contact Closed Radiology Diagnoses Chronic right hip pain Procedures FL Pre MRI/CT Hip Injection INJECTION HIP ARTHROGRAPHY W/O ANESTHESIA CHG FLUOROSCOPIC GUIDANCE NEEDLE PLACEMENT ADD ON Kaela Fatima PA-C [address] [place] [id number] [address] Electronically signed by Kaela Fatima PA-C at [facility] for referral (narrative)* Procedure Authorization (Routine) Status Reason Specialty Diagnoses / Procedures Referred By Contact Referred To Contact Closed Radiology Diagnoses Chronic right hip pain Procedures MRI Arthrogram Hip Right With IV Contrast Kaela Fatima PA-C [address] [place] [address] [phone] Electronically signed by Kaela Fatima PA-C at [facility] for referral (narrative)* Outpatient Procedure (Routine) - Pending Review Specialty Diagnoses / Procedures Referred By Contac t Referred To Contact [facility] Diagnoses Subaortic membrane Diabetes mellitus type 1, controlled, without complications (HCC) Hypothyroidism, unspecified type Pre-operative cardiovascular examination Procedures LUNG DIFFUSION CAPACITY (DLCO) DIFFUSING CAPACITY Roscoe Arias MD [address] [place] [address] [facility] [place] [address] [place] [address] Referral ID Status Reason Start Date Expiration Date Visits Requested Visits Authorized [id number] Pending Review Auto-Generat ed Referral 01/01/2022 01/31/2023 1 1 * Outpatient Procedure (Routine) - Pending Review Specialty Diagnoses / Procedures Referred By Contac t Referred To Contact [facility] Diagnoses Subaortic membrane Diabetes mellitus type 1, controlled, without complications (HCC) Hypothyroidism, unspecified type Pre-operative cardiovascular examination Procedures SPIROMETRY BASELINE ONLY SPMTRY W/VC EXPIRATORY DIRK W/WO MXML VOL VNTJ Roscoe Arias MD [address] [place] [address] [address] Referral ID Status Reason Start Date Expiration Date Visits Requested Visits Authorized [id number] Pending Review Auto-Generat ed Referral 01/01/2022 01/31/2023 1 1 * MRI/CT (Routine) - Pending Review Specialty Diagnoses / Procedures Referred By Contac t Referred To Contact MR IMAGING Diagnoses Subaortic membrane Diabetes mellitus type 1, controlled, without complications (HCC) Hypothyroidism, unspecified type Pre-operative cardiovascular examination Procedures MRI CARDIAC VELOCITY FLOW MAP CARDIAC MRI FOR VELOCITY FLOW MAPPING Roscoe Arias MD [address] [place] [address] Mr Imaging Referral ID Status Reason Start Date Expiration Date Visits Requested Visits Authorized [id number] Pending Review Auto-Generat ed Referral 01/01/2022 01/31/2023 1 1 * MRI/CT (Routine) - Pending Review Specialty Diagnoses / Procedures Referred By Kirstie parada Referred To Contact MR IMAGING Diagnoses Subaortic membrane Diabetes mellitus type 1, controlled, without complications (HCC) Hypothyroidism, unspecified type Pre-operative cardiovascular examination Procedures MRI CARDIAC MORPH FUNC WO/W IVCON CARDIAC MRI W/WO CONTRAST & FURTHER SEQ Rsocoe Arias MD [address] [place] [address] Mr Imaging Referral ID Status Reason Start Date Expiration Date Visits Requested Visits Authorized [id number] Pending Review Auto-Generat ed Referral 01/01/2022 01/31/2023 1 1 * Consult, Test, Treat (Routine) - Authorized Specialty Diagnoses / Procedures Referred By Kristie parada Referred To Contact Endocrinology Diagnoses Subaortic membrane Diabetes mellitus type 1, controlled, without complications (HCC) Hypothyroidism, unspecified type Pre-operative cardiovascular examination Procedures CONSULT TO ENDOCRINOLOGY OFFICE/OUTPATIENT [facility] 60-74 MINUTES Roscoe Arias MD [address] [place] [address] Referral ID Status Reason Start Date Expiration Date Visits Requested Visits Authorized [id number] Authorized PCP Requested Referral 01/01/2022 01/01/2023 1 1 * Consult, Test, Treat (Routine) - Authorized Specialty Diagnoses / Procedures Referred By Kristie parada Referred To Contact Cardiac Surg Diagnoses Subaortic membrane Diabetes mellitus type 1, controlled, without complications (HCC) Hypothyroidism, unspecified type Pre-operative cardiovascular examination Procedures CARDIOTHORACIC PREOP EVALUATION OFFICE/OUTPATIENT [facility] 60-74 MINUTES Roscoe Arias MD [address] [place] [address] Referral ID Status Reason Start Date Expiration Date Visits Requested Visits Authorized [id number] Authorized PCP Requested Referral 01/01/2022 01/01/2023 1 1 [facility] for referral (narrative)* Outpatient Procedure (Routine) - Closed Specialty Diagnoses / Procedures Referred By Contac t Referred To Contact [facility] [place] Diagnoses Subaortic membrane Ex-smoker Dyspnea, unspecified type Procedures STRESS ECHO TREADMILL ECHO TTHRC R-T 2D W/WO M-MODE COMPLETE REST&ST Abhinav Garrett MD [address] [place] [address] [facility] [place] [address] Referral ID Status Reason Start Date Expiration Date V isits Requested Visits Authorized [id number] Closed Auto-Generate d Referral 12/31/2021 07/10/2022 1 1 * Outpatient Procedure (Routine) - Authorized Specialty Diagnoses / Procedures [facility] Diagnoses Ex-smoker Dyspnea, unspecified type Procedures LUNG DIFFUSION CAPACITY (DLCO) DIFFUSING CAPACITY Abhinav Garrett MD [address] [place] [address] [place] [address] Referral ID Status Reason Start Date Expiration Date Visits Requested Visits Authorized [id number] Authorized Auto-Generat ed Referral 12/31/2021 01/30/2023 1 1 * Outpatient Procedure (Routine) - Authorized Specialty Diagnoses / Procedures [facility] Diagnoses Ex-smoker Procedures SPIROMETRY - BASELINE AND POST DILATOR BRNCDILAT RSPSE SPMTRY PRE&POST-BRNCDILAT ADMN Abhinav Garrett MD [address] [place] [address] [place] [address] Referral ID Status Reason Start Date Expiration Date Visits Requested Visits Authorized [id number] Authorized Auto-Generat ed Referral 12/31/2021 01/30/2023 1 1 [facility] for referral (narrative)* Outpatient Procedure (Routine) - Pending Review Specialty Diagnoses / Procedures Referred By Contac t Referred To Contact [facility] [place] Diagnoses Atelectasis Nonrheumatic mitral valve regurgitation Procedures ECHO ECHO TTHRC R-T 2D W/WOM-MODE COMPL SPEC&COLR D Abhinav Garrett MD [address] [place] [address] [place] [address] Referral ID Status Reason Start Date Expiration Date Visits Requested Visits Authorized [id number] Pending Review Auto-Generat ed Referral 01/29/2022 01/29/2023 1 1 * Outpatient Procedure (Routine) - Authorized Specialty Diagnoses / Procedures Referred By Contac t Referred To Contact [facility] Diagnoses Atelectasis Nonrheumatic mitral valve regurgitation Procedures ECG COMPLETE ECG ROUTINE ECG W/LEAST 12 LDS W/I&R Abhinav Garrett MD [address] [place] [address] [place] [address] Referral ID Status Reason Start Date Expiration Date Visits Requested Visits Authorized [id number] Authorized Auto-Generat ed Referral 01/29/2022 01/29/2023 1 1 [facility] for referral (narrative)* Consultation (Routine) - Pending Review Specialty Diagnoses / Procedures Referred By Contac t Referred To Contact Sleep Medicine Diagnoses FALGUNI (obstructive sleep apnea) Procedures [place] OFFICE/OUTPATIENT NEW HIGH MDM 60-74 MINUTES Luz Maria Perez MD [address] [place] [address], [address] [place] [address] [facility] [address] [place] [address] Referral ID Status Reason Start Date Expiration Date Visits Requested Visits Authorized [id number] Pending Review Specialty Services Required 3 05/05/2024 1 1 [facility]No reason for referral information availableWCleveland [facility] Work Phone: Reason for referral (narrative)* Transition of Care (Routine) - Authorized Specialty Diagnoses / Procedures Referred By Contac t Referred To Contact [facility] [place] Procedures CARDIOVASCULAR MEDICINE OP FOLLOW UP APPT ORDER Jt King MD [address] [place] [address] Phone: tel: fax: [place] [address] Referral ID Status Reason Start Date Expiration Date Visits Requested Visits Authorized [id number] Authorized PCP Requested Referral 12/20/2024 12/20/2025 1 1 [facility] for visit Narrative* Procedure Authorization (Routine) Status Reason Specialty Diagnoses / Procedures Re ferred By Contact Referred To Contact Closed Radiology Diagnoses Chronic right hip pain Procedures FL Pre MRI/CT Hip Injection INJECTION HIP ARTHROGRAPHY W/O ANESTHESIA CHG FLUOROSCOPIC GUIDANCE NEEDLE PLACEMENT ADD ON Kaela Fatima PA-C [address] [place] [address] TOMMIE Within3 [facility] [address] [place] [phone] [facility] N[facility]ative* Procedure Authorization (Routine) Status Reason Specialty Diagnoses / Procedures Referred By Contact Referred To Contact Closed Radiology Diagnoses Chronic right hip pain Procedures MRI Arthrogram Hip Right With IV Contrast Kaela Fatima PA-C [address] [place] [address] [facility] [address] [place] [address] [facility] Narrative* Outpatient Procedure (Routine) - Closed Specialty Diagnoses / Procedures Referred By Kristie t Referred To Contact [facility] Diagnoses Aortic valve disorder Procedures ECHO TRANSESOPHAGEAL ECHO TRANSESOPHAG R-T 2D W/PRB IMG BENNETT I&R Roscoe Arias MD [address] [place] [address] Phone: tel: fax: [facility] [place] [address] [place] [address] Referral ID Status Reason Start Date Expiration Date V isits Requested Visits Authorized [id number] Closed Auto-Generate d Referral 08/17/2024 08/17/2025 1 1 [facility] for visit Narrative* Consult, Test, Treat (Routine) - Authorized Specialty Diagnoses / Procedures Referred By Kristie parada Referred To Contact Cardiac Surg Diagnoses Aortic valve disorder Procedures CARDIOTHORACIC PREOP EVALUATION OFFICE/OUTPATIENT [facility] 60 MINUTES Roscoe Arias MD [address] [place] [address] Phone: tel: fax: Outpatient Referral [facility] Karen Garcia [address] [address] Referral ID Status Reason Start Date Expiration Date Visits Requested Visits Authorized [id number] Authorized PCP Requested Referral 07/11/2024 07/10/2025 99 99 [facility] for visit Narrative* Consult, Test, Treat (Routine) - Closed Specialty Diagnoses / Procedures Referred By Kristie t Referred To Contact Cardiology Diagnoses Type 1 diabetes mellitus without complication (HCC) Acquired hypothyroidism Pre-operative cardiovascular examination Aortic valve disorder Procedures CONSULT TO CARDIOLOGY OFFICE/OUTPATIENT [facility] 60 MINUTES Roscoe Arias MD [address] [place] [address] Phone: tel: fax: Outpatient Referral [address] [address] Referral ID Status Reason Start Date Expiration Date V isits Requested Visits Authorized [id number] Closed PCP Requested Referral 12/09/2024 07/10/2025 1 1 [facility] Summary Purpose Family History No Family History Records Found Family Member Condition Maternal Grandmother Diabetes - non-insu jasen dependent Paternal Grandfather Diabetes - insulin dependent Father Alive Mother Alive Mother Arthritis Advance Directives No Advanced Directives Records FoundDocuments on File Type Date Recorded 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 Advance Directives and Living Will Power of Fingernail Sculptor Latest Code Status on File Code Status Date Activated Date Inactivated Comments Full Code 12/20/2018 11:52 AM 12/25/2018 5:03 PM Full Code 12/20/2018 6:14 AM 12/20/2018 8:09 AM Full Code 11/29/2018 7:56 AM 11/29/2018 6:35 PM Full Code 11/29/2018 6:20 AM 11/29/2018 7:55 AM Full Code 11/21/2018 9:10 AM 11/21/2018 4:10 PM Documents on File Type Date Recorded 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 Advance Directives and Living Will Power of Fingernail Sculptor Documents on File Type Date Recorded 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 ACP-Advance Directive ACP-Power of Fingernail Sculptor Latest Code Status on File Code Status Date Activated Date Inactivated Comments Full Code 12/20/2018 11:52 AM 12/25/2018 5:03 PM Full Code 12/20/2018 6:14 AM 12/20/2018 8:09 AM Full Code 11/29/2018 7:56 AM 11/29/2018 6:35 PM Full Code 11/29/2018 6:20 AM 11/29/2018 7:55 AM Full Code 11/21/2018 9:10 AM 11/21/2018 4:10 PM Documents on File Type Date Recorded 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 ACP-Advance Directive ACP-Power of Fingernail Sculptor Latest Code Status on File Code Status Date Activated Date Inactivated Comments Full Code 10/07/2021 6:53 AM 10/07/2021 11:54 AM Full Code 12/20/2018 11:52 AM 12/25/2018 5:03 PM Documents on File Type Date Recorded 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 * Conjunctivitis (Grenadian) * Video: Taking Care of Pinkeye at Home (Grenadian) documented in this encounter* Attachments The following attachments cannot be sent through Care Everywhere. * Abscess: Skin (Grenadian) * Cellulitis (Grenadian) documented in this encounter Assessments Diagnosis Acute bacterial conjunctivitis of both eyes- Primary Diagnosis Cellulitis and abscess of trunk- Primary Reason for Referral Specialty Diagnoses / Procedures Referred By Contac t Referred To Contact CT IMAGING Diagnoses Aortic valve disorder Procedures CTA CHEST (GATED) W IVCON CT ANGIOGRAPHY CHEST W/CONTRAST/NONCONTRAST Roscoe Arias MD [address] [place] [address] Ct Imaging [place] [address] Referral ID Status Reason Start Date Expiration Date Visits Requested Visits Authorized [id number] New Request Auto-Generat ed Referral 08/17/2024 09/16/2025 1 1 Specialty Diagnoses / Procedures Referred By Contac t Referred To Contact [facility] Diagnoses Aortic valve disorder Procedures ECHO TRANSESOPHAGEAL ECHO TRANSESOPHAG R-T 2D W/PRB IMG [place]IS[place] I&[place] [address] [place] [address] [facility] [place] [address] Referral ID Status Reason Start Date Expiration Date Visits Requested Visits Authorized [id number] New Request Auto-Generat ed Referral 08/17/2024 08/17/2025 1 1 Specialty Diagnoses / Procedures Referred By Contac t Referred To Contact [facility] Diagnoses Aortic valve disorder Procedures ECHO ECHO TTHRC R-T 2D W/WOM-MODE COMPL SPEC&COLR D Roscoe Arias MD [address] [place] [address] [facility] [place] [address] [place] [address] Referral ID Status Reason Start Date Expiration Date Visits Requested Visits Authorized [id number] New Request Auto-Generat ed Referral 08/17/2024 08/17/2025 1 1 Specialty Diagnoses / Procedures Referred By Contac t Referred To Contact Cardiac Surg Diagnoses Aortic valve disorder Procedures CARDIOTHORACIC PREOP EVALUATION OFFICE/OUTPATIENT [facility] 60 MINUTES Roscoe Arias MD [address] [place] [address] Referral ID Status Reason Start Date Expiration Date Visits Requested Visits Authorized [id number] Pending Review PCP Requested Referral 08/17/2024 08/17/2025 1 1 Specialty Diagnoses / Procedures Referred By Contac t Referred To Contact Cardiology Diagnoses Aortic valve disorder Procedures CONSULT TO CARDIOLOGY OFFICE/OUTPATIENT [facility] 60 MINUTES Roscoe Arias MD [address] [place] [address] Referral ID Status Reason Start Date Expiration Date Visits Requested Visits Authorized [id number] Pending Review PCP Requested Referral 08/17/2024 08/17/2025 1 1 Specialty Diagnoses / Procedures Referred By Contac t Referred To Contact Diagnoses Type 1 diabetes mellitus with hyperglycemia (HCC) Sruthi Ambrosio, COVER OPERATOR.AMBULANCE ATTENDANT [address] [place] [address] Referral ID Status Reason Start Date Expiration Date Visits Re quested Visits Authorized [id number] Closed 1 1 Specialty Diagnoses / Procedures Referred By Contac t Referred To Contact Diagnoses Dental infection Medication refill Procedures ESTABLISH WITH PRIMARY CARE NEW PATIENT OFFICE/OUTPATIENT [facility] 60-74 MINUTES Thais Phelps, COVER OPERATOR.AMBULANCE ATTENDANT [address] [place] [address] Referral ID Status Reason Start Date Expiration Date Visits Requested Visits Authorized [id number] Authorized PCP Requested Referral 07/12/2022 07/12/2023 1 1 Specialty Diagnoses / Procedures Referred By Contac t Referred To Contact CT IMAGING Diagnoses Localized swelling, mass and lump, trunk S/P AVR (aortic valve replacement) S/P TVR (tricuspid valve repair) Wound infection after surgery Procedures CT CHEST WO IVCON DIAGNOSTIC COMPUTED TOMOGRAPHY THORAX W/O CNTRST Courtney Gabriel, COVER OPERATOR.AMBULANCE ATTENDANT [address] [place] [address] Ct Imaging Referral ID Status Reason Start Date Expiration Date Visits Requested Visits Authorized [id number] Pending Review Auto-Generat ed Referral 02/17/2022 03/17/2023 1 1 Specialty Diagnoses / Procedures Referred By Contac t Referred To Contact CT IMAGING Diagnoses Subaortic membrane Shortness of breath Aortic valve disorder Procedures CT CHEST CARDIAC WO IVCON DIAGNOSTIC COMPUTED TOMOGRAPHY THORAX W/O Roscoe Yancey MD [address] [place] [address] Ct Imaging Referral ID Status Reason Start Date Expiration Date Visits Requested Visits Authorized [id number] Pending Review Auto-Generat ed Referral 11/06/2021 12/06/2022 1 1 Specialty Diagnoses / Procedures Referred By Contac t Referred To Contact [facility] Diagnoses Subaortic membrane Shortness of breath Aortic valve disorder Procedures STRESS ECHO DOBUTAMINE ECHO TTHRC R-T 2D W/WO M-MODE COMPLETE REST&ST Roscoe Arias MD [address] [place] [address] [facility] [place] [id number] [place] [address] Referral ID Status Reason Start Date Expiration Date Visits Requested Visits Authorized [id number] Pending Review Auto-Generat ed Referral 11/06/2021 11/06/2022 1 1 Specialty Diagnoses / Procedures Referred By Contac t Referred To Contact [facility] [place] Diagnoses Subaortic membrane Shortness of breath Aortic valve disorder Procedures ECHO ECHO TTHRC R-T 2D W/WOM-MODE COMPL SPEC&COLR D Roscoe Arias MD [address] [place] [address] [place] [address] Referral ID Status Reason Start Date Expiration Date Visits Requested Visits Authorized [id number] Pending Review Auto-Generat ed Referral 11/06/2021 11/06/2022 1 1 Specialty Diagnoses / Procedures Referred By Contac t Referred To Contact [facility] [place] Diagnoses Subaortic membrane Shortness of breath Aortic valve disorder Procedures ECG COMPLETE ECG ROUTINE ECG W/LEAST 12 LDS W/I&R Roscoe Arias MD [address] [place] [address] [place] [address] Referral ID Status Reason Start Date Expiration Date Visits Requested Visits Authorized [id number] Pending Review Auto-Generat ed Referral 11/06/2021 11/06/2022 1 1 Specialty Diagnoses / Procedures Referred By Kristie t Referred To Contact Cardiac Surg Diagnoses Subaortic membrane Shortness of breath Aortic valve disorder Procedures CARDIOTHORACIC PREOP EVALUATION OFFICE/OUTPATIENT [facility] 60-74 MINUTES Roscoe Arias MD [address] [place] [address] Referral ID Status Reason Start Date Expiration Date Visits Requested Visits Authorized [id number] Authorized PCP Requested Referral 11/06/2021 11/06/2022 1 1 Specialty Diagnoses / Procedures Referred By Kristie t Referred To Contact Cardiology Diagnoses Subaortic membrane Shortness of breath Aortic valve disorder Procedures CONSULT TO CARDIOLOGY OFFICE/OUTPATIENT [facility] 60-74 MINUTES Roscoe Arias MD [address] [facility] [place] [place] [address] Referral ID Status Reason Start Date Expiration Date Visits Requested Visits Authorized [id number] Authorized PCP Requested Referral 11/06/2021 11/06/2022 1 1 Specialty Diagnoses / Procedures Referred By Kristie parada Referred To Contact Cardiology Diagnoses Subvalvar aortic stenosis LVH (left ventricular hypertrophy) Procedures ECHO Complete 2D W Doppler W Color Janusz Taveras Shelli, COVER OPERATOR - AMBULANCE ATTENDANT [address] [place] [address] Referral ID Status Reason Start Date Expiration Date Visits Re quested Visits Authorized [id number] Open 08/24/2021 08/24/2022 1 1 Health Concerns [...] DATE CREATED AUTHOR AUTHOR'S ORGANIZ ATION 10/23/2018 [facility] DATE CREATED AUTHOR AUTHOR'S ORGANIZ ATION 09/01/2019 [facility] DATE CREATED AUTHOR AUTHOR'S ORGANIZ ATION 12/10/2019 [facility] DATE CREATED AUTHOR AUTHOR'S ORGANIZ ATION 07/03/2020 [facility] [place] DATE CREATED AUTHOR AUTHOR'S ORGANIZ ATION 10/21/2021 [facility] DATE CREATED AUTHOR AUTHOR'S ORGANIZ ATION 02/03/2022 [facility] DATE CREATED AUTHOR AUTHOR'S ORGANIZ ATION 05/04/2022 [facility] DATE CREATED AUTHOR AUTHOR'S ORGANIZ ATION 02/11/2024 [facility] DATE CREATED AUTHOR AUTHOR'S ORGANIZ ATION 02/21/2024 [facility] ([place] DATE CREATED AUTHOR AUTHOR'S ORGANIZ ATION 04/04/2024 [facility] DATE CREATED AUTHOR AUTHOR'S ORGANIZ ATION 07/28/2024 [facility] DATE CREATED AUTHOR AUTHOR'S ORGANIZ ATION 01/17/2025 [facility] DATE CREATED AUTHOR AUTHOR'S ORGANIZ ATION 02/15/2025 [facility] DATE CREATED AUTHOR AUTHOR'S ORGANIZ ATION 03/08/2025 [facility] DATE CREATED AUTHOR AUTHOR'S ORGANIZ ATION 03/17/2025 [facility] DATE CREATED AUTHOR AUTHOR'S ORGANIZ ATION 03/27/2025 [facility] DATE CREATED AUTHOR AUTHOR'S ORGANIZ ATION 03/27/2025 [facility] DATE CREATED AUTHOR AUTHOR'S ORGANIZ ATION 03/28/2025 [facility] Reason for Visit (unrecogniz ed section and [...] WO IVCON DIAGNOSTIC COMPUTED TOMOGRAPHY THORAX W/O CNTRST Roscoe Arias MD [address] [place] [address] Ct Imaging Referral ID Status Reason Start Date Expiration Date V isits Requested Visits Authorized [id number] Closed Auto-Generate d Referral 11/06/2021 01/15/2022 1 [...] W/WO MXML VOL VNTJ Roscoe Arias MD [address] [place] [id number] [facility] [place] [address] [place] [address] Referral ID Status Reason Start Date Expiration Date V isits Requested Visits Authorized [id number] Closed Auto-Generate d Referral 01/01/2022 01/31/2023 1 [...] Reason Comments Refill Request Reason Comments Orders Carver Hand - Other Reason Comments No Show # [...] Pt states that he wa s at [facility]. Pt states that he is in [...] Referred By Kristie t Referred To Contact CT IMAGING Diagnoses Aortic valve disorder Procedures CTA CHEST (GATED) W IVCON CT ANGIOGRAPHY CHEST W/CONTRAST/NONCONTRAST Roscoe Arias MD [address] [place] [id number] Phone: tel: fax: CT IMAGING [place] [address] Referral ID Status Reason Start Date Expiration Date V isits Requested Visits Authorized [id number] Closed Auto-Generate d Referral 08/17/2024 09/16/2025 1 1 Reason Comments Dental Clearance - Open Heart Surgery Specialty Diagnoses / Procedures Referred By Contac t Referred To Contact Dentistry / DENTISTRY Diagnoses Type 1 diabetes mellitus without complication (HCC) Acquired hypothyroidism Pre-operative cardiovascular examination Aortic valve disorder Procedures CONSULT TO DENTISTRY OFFICE/OUTPATIENT [facility] 60 MINUTES Roscoe Arias MD [address] [facility] [address] Phone: tel: fax: Dentistry [address] [place] [address] Phone: tel: fax: Referral ID Status Reason Start Date Expiration Date V isits Requested Visits Authorized [id number] Closed PCP Requested Referral 11/27/2024 11/27/2025 1 1 Specialty Diagnoses / Procedures Referred By Kristie t Referred To Contact [facility] Diagnoses Type 1 diabetes mellitus without complication (HCC) Acquired hypothyroidism Pre-operative cardiovascular examination Aortic valve disorder Procedures LUNG DIFFUSION CAPACITY (DLCO) DIFFUSING CAPACITY Roscoe Arias MD [address] [place] [id number] Phone: tel: fax: [facility] [place] [address] [place] [address] Referral ID Status Reason Start Date Expiration Date V isits Requested Visits Authorized [id number] Closed Auto-Generate d Referral 07/11/2024 07/10/2025 1 1 Reason Comments Consult Diabetes Insulin Dependent Diabetes Mellitus Specialty Diagnoses / Procedures Referred By Contact Referred To Contact [facility] Diagnoses Type 1 diabetes mellitus without complication (HCC) Acquired hypothyroidism Pre-operative cardiovascular examination Aortic valve disorder Procedures CONSULT TO ENDOCRINOLOGY OFFICE/OUTPATIENT [facility] 60 MINUTES Roscoe Arias MD [address] [place] [address] Phone: tel:[phone] fax:[phone] [facility] [place] [address] [place] [address] Referral ID Status Reason Start Date Expiration Date V isits Requested Visits Authorized [id number] Closed PCP Requested Referral 11/27/2024 07/10/2025 1 [...] Vascular Reason Comments referral info given via [facility] Reason Comments Appointment Referral Information Reason Comments Appointment appt Reason Comments Established Patient New to provider, spencer bateman follow up for coumadin. Reason Comments Referral Update Reason Comments Refill Request Reason Onset Date Comments Refill Request 03/06/2025 Reason Comments New Patient Consult Referral Robyn Taylor COVER OPERATOR.AMBULANCE ATTENDANT Peripheral Vascular Disease (PVD) Reason Onset Date [...] Care Teams (unrecognized sec tion and content) Product Scientist Relationship Specialty Start Date End Date Giovanni Ellis CNP [address] [place] [address] PCP - General Nurse Practitioner 09/29/20 Noam Luevano MD [address] [place] [address] Cardiology 11/19/20 Product Scientist Relationship Specialty Start Date End Date Kacie Marroquin, RIC - AMBULANCE ATTENDANT [address] [place] [address] PCP - General Nurse Practitioner 08/24/21 Product Scientist Relationship Specialty Start Date End Date Kacie Marroquin, COVER OPERATOR - AMBULANCE ATTENDANT [address] [place] [address] PCP - General Nurse Practitioner 08/24/21 Product Scientist Relationship Specialty Start Date End Date [facility] [address], [address] [place] [address] Scholastic Aptitude Test Grader Cardiology 10/13/21 [place] [address] [place] [address] Referring Cardiology 10/27/21 Product Scientist Relationship Specialty Start Date End Date [facility] [address], [address] [place] [address] Scholastic Aptitude Test Grader Cardiology 10/13/21 [place] [address] [place] [address] Referring Cardiology 10/27/21 Product Scientist Relationship Specialty Start Date End Date [facility] [address], [address] [place] [address] Scholastic Aptitude Test Grader Cardiology 10/13/21 [place] [address] [place] [address] Referring Cardiology 10/27/21 Product Scientist Relationship Specialty Start Date End Date [facility] [address], [address] [place] [address] Scholastic Aptitude Test Grader Cardiology 10/13/21 [place] [address] [place] [address] Referring Cardiology 10/27/21 Abhinav Garrett MD [address] [place] [address] Primary Staff Physician Cardiology 12/30/21 Product Scientist Relationship Specialty Start Date End Date Luz Maria Perez [address], [address] [place] [address] Scholastic Aptitude Test Grader Cardiology 10/13/21 Luz Maria Perez [place] [address] [place] [address] Referring Cardiology 10/27/21 Abhinav Garrett MD [address] [place] [address] Primary Staff Physician Cardiology 12/30/21 Product Scientist Relationship Specialty Start Date End Date Luz Maria Perez [address], [address] [place] [address] Scholastic Aptitude Test Grader Cardiology 10/13/21 Luz Maria Perez [place] [address] [place] [address] Referring Cardiology 10/27/21 Abhinav Garrett MD [address] [place] [address] Primary Staff Physician Cardiology 12/30/21 Product Scientist Relationship Specialty Start Date End Date Luz Maria Perez [address], [address] [place] [address] Scholastic Aptitude Test Grader Cardiology 10/13/21 Luz Maria Perez [place] [address] [place] [address] Referring Cardiology 10/27/21 Abhinav Garrett MD [address] [place] [address] Primary Staff Physician Cardiology 12/30/21 Product Scientist Relationship Specialty Start Date End Date Luz Maria Perez [address], [address] [place] [address] Scholastic Aptitude Test Grader Cardiology 10/13/21 Luz Maria Perez [place] [address] [place] [address] Referring Cardiology 10/27/21 Abhinav Garrett MD [address] [place] [address] Primary Staff Physician Cardiology 12/30/21 Product Scientist Relationship Specialty Start Date End Date [facility] [address] [place] [address] Scholastic Aptitude Test Grader Cardiology 10/13/21 [facility] [address] [place] [address] Referring Cardiology 10/27/21 Abhinav Garrett MD [facility] [place] [address] Primary Staff Physician Cardiology 12/30/21 Product Scientist Relationship Specialty Start Date End Date [facility] [address], [address] [place] [address] Scholastic Aptitude Test Grader Cardiology 10/13/21 [facility] Luz Maria [place] [address] [place] [address] Referring Cardiology 10/27/21 Abhinav Garrett MD [address] [place] [address] Primary Staff Physician Cardiology 12/30/21 Product Scientist Relationship Specialty Start Date End Date [facility] [address], [address] [place] [address] Scholastic Aptitude Test Grader Cardiology 10/13/21 [place] [address] [place] [address] Referring Cardiology 10/27/21 Abhianv Garrett MD [address] [place] [address] Primary Staff Physician Cardiology 12/30/21 Product Scientist Relationship Specialty Start Date End Date Luz Maria Perez [address], [address] [place] [address] Scholastic Aptitude Test Grader Cardiology 10/13/21 Luz Maria Perez [place] [address] [place] [address] Referring Cardiology 10/27/21 Abhinav Garrett MD [address] [place] [address] Primary Staff Physician Cardiology 12/30/21 Product Scientist Relationship Specialty Start Date End Date Luz Maria Perez [address], [address] [place] [address] Scholastic Aptitude Test Grader Cardiology 10/13/21 Luz Maria Perez [place] [address] [place] [address] Referring Cardiology 10/27/21 Abhinav Garrett MD [address] [place] [address] Primary Staff Physician Cardiology 12/30/21 Product Scientist Relationship Specialty Start Date End Date Luz Maria Perez [address] [place] [address], [address] [place] [address] Scholastic Aptitude Test Grader Cardiology 10/13/21 Luz Maria Perez [place] [address] [place] [address] Referring Cardiology 10/27/21 Abhinav Garrett MD [address] [place] [address] Primary Staff Physician Cardiology 12/30/21 Product Scientist Relationship Specialty Start Date End Date Luz Maria Perez [address], [address] [place] [address] Scholastic Aptitude Test Grader Cardiology 10/13/21 Luz Maria Perez [place] [address] [place] [address] Referring Cardiology 10/27/21 Abhinav Garrett MD [address] [place] [address] Primary Staff Physician Cardiology 12/30/21 Product Scientist Relationship Specialty Start Date End Date [address], [address] [place] [address] Scholastic Aptitude Test Grader Cardiology 10/13/21 [facility] [address] [place] [address] Referring Cardiology 10/27/21 [place] [address] [place] [address] Primary Staff Physician Cardiology 12/30/21 Product Scientist Relationship Specialty Start Date End Date [address], [address] [place] [address] Scholastic Aptitude Test Grader Cardiology 10/13/21 [place] [address] [place] [address] Referring Cardiology 10/27/21 Abhinav Garrett MD [address] [place] [address] Primary Staff Physician Cardiology 12/30/21 Product Scientist Relationship Specialty Start Date End Date [address], [address] [place] [address] Scholastic Aptitude Test Grader Cardiology 10/13/21 [place] [address] [place] [address] Referring Cardiology 10/27/21 Abhinav Garrett MD [address] [place] [address] Primary Staff Physician Cardiology 12/30/21 Product Scientist Relationship Specialty Start Date End Date Luz Maria Perez [address], [address] [place] [address] Scholastic Aptitude Test Grader Cardiology 10/13/21 Luz Maria Perez [place] [address] [place] [address] Referring Cardiology 10/27/21 Abhinav Garrett MD [address] [place] [address] Primary Staff Physician Cardiology 12/30/21 Product Scientist Relationship Specialty Start Date End Date Luz Maria Perez [address], [address] [place] [address] Scholastic Aptitude Test Grader Cardiology 10/13/21 Luz Maria Perez [place] [address] [place] [address] Referring Cardiology 10/27/21 Abhinav Garrett MD [address] [place] [address] Primary Staff Physician Cardiology 12/30/21 Product Scientist Relationship Specialty Start Date End Date Luz Maria Perez [address], [address] [place] [address] Scholastic Aptitude Test Grader Cardiology 10/13/21 Luz Maria Perez [place] [address] [place] [address] Referring Cardiology 10/27/21 Abhinav Garrett MD [address] [place] [address] Primary Staff Physician Cardiology 12/30/21 Product Scientist Relationship Specialty Start Date End Date Luz Maria Perez [address], [address] [place] [address] Scholastic Aptitude Test Grader Cardiology 10/13/21 Luz Maria Perez [place] [address] [place] [address] Referring Cardiology 10/27/21 Abhinav Garrett MD [address] [place] [address] Primary Staff Physician Cardiology 12/30/21 Product Scientist Relationship Specialty Start Date End Date Luz Maria Perez Scholastic Aptitude Test Grader Cardiology 10/13/21 Luz Maria Perez [address] [place] [address] Referring Cardiology 10/27/21 Abhinav Garrett MD [address] [place] [address] Primary Staff Physician Cardiology 12/30/21 Product Scientist Relationship Specialty Start Date End Date Luz Maria Perez Scholastic Aptitude Test Grader Cardiology 10/13/21 Luz Maria Perez [address] [place] [address] Referring Cardiology 10/27/21 Abhinav Garertt MD [address] [place] [address] Primary Staff Physician Cardiology 12/30/21 Product Scientist Relationship Specialty Start Date End Date Luz Maria Perez Scholastic Aptitude Test Grader Cardiology 10/13/21 Luz Maria Perez [address] [place] [address] Referring Cardiology 10/27/21 Abhinav Garrett MD [address] [place] [address] Primary Staff Physician Cardiology 12/30/21 Product Scientist Relationship Specialty Start Date End Date Luz Maria Perez Scholastic Aptitude Test Grader Cardiology 10/13/21 Luz Maria Perez [address] [place] [address] Referring Cardiology 10/27/21 Abhinav Garrett MD [address] [place] [address] Primary Staff Physician Cardiology 12/30/21 Product Scientist Relationship Specialty Start Date End Date Luz Maria Perez Scholastic Aptitude Test Grader Cardiology 10/13/21 Luz Maria Perez [address] [place] [address] Referring Cardiology 10/27/21 Abhinav Garrett MD [address] [place] [address] Primary Staff Physician Cardiology 12/30/21 Product Scientist Relationship Specialty Start Date End Date Luz Maria Perez Scholastic Aptitude Test Grader Cardiology 10/13/21 Luz Maria Perez [address] [place] [address] Referring Cardiology 10/27/21 Abhinav Garrett MD [address] [place] [address] Primary Staff Physician Cardiology 12/30/21 Product Scientist Relationship Specialty Start Date End Date Luz Maria Perez Scholastic Aptitude Test Grader Cardiology 10/13/21 Luz Maria Perez [address] [place] [address] Referring Cardiology 10/27/21 Abhinav Garrett MD [address] [place] [address] Primary Staff Physician Cardiology 12/30/21 Product Scientist Relationship Specialty Start Date End Date Luz Maria Perez Scholastic Aptitude Test Grader Cardiology 10/13/21 Luz Maria Perez [address] [place] [address] Referring Cardiology 10/27/21 Abhinav Garrett MD [address] [place] [address] Primary Staff Physician Cardiology 12/30/21 Product Scientist Relationship Specialty Start Date End Date Luz Maria Perez Scholastic Aptitude Test Grader Cardiology 10/13/21 Luz Maria Perez Carlin [address] [place] [address] Referring Cardiology 10/27/21 Abhinav Garrett MD [address] [place] [address] Primary Staff Physician Cardiology 12/30/21 Product Scientist Relationship Specialty Start Date End Date Jesse Ward DO [address] [place] [address] PCP - General Family Medicine 07/15/22 Luz Maria Perez Scholastic Aptitude Test Grader Cardiology 10/13/21 Luz Maria Perez [address] [place] [address] Referring Cardiology 10/27/21 Abhinav Garrett MD [address] [place] [address] Primary Staff Physician Cardiology 12/30/21 Product Scientist Relationship Specialty Start Date End Date Jesse Ward DO [address] [place] [address] PCP - General Family Medicine 07/15/22 Luz Maria Perez Scholastic Aptitude Test Grader Cardiology 10/13/21 Luz Maria Perez [address] [place] [address] Referring Cardiology 10/27/21 Abhinav Garrett MD [address] [place] [address] Primary Staff Physician Cardiology 12/30/21 Product Scientist Relationship Specialty Start Date End Date Jesse Ward, DO [address] [place] [address] PCP - General Family Medicine 07/15/22 Luz Maria Perez Scholastic Aptitude Test Grader Cardiology 10/13/21 Luz Maria Perez [address] [place] [address] Referring Cardiology 10/27/21 Abhinav Garrett MD [address] [place] [address] Primary Staff Physician Cardiology 12/30/21 Product Scientist Relationship Specialty Start Date End Date Luz Maria Perez Scholastic Aptitude Test Grader Cardiology 10/13/21 Luz Maria Perez [address] [place] [address] Referring Cardiology 10/27/21 Abhinav Garrett MD [address] [place] [address] Primary Staff Physician Cardiology 12/30/21 Product Scientist Relationship Specialty Start Date End Date Luz Maria Perez Scholastic Aptitude Test Grader Cardiology 10/13/21 Luz Maria Perez [address] [place] [address] Referring Cardiology 10/27/21 Abhinav Garrett MD [address] [place] [address] Primary Staff Physician Cardiology 12/30/21 Product Scientist Relationship Specialty Start Date End Date ChrisLuz Maria Carlin Scholastic Aptitude Test Grader Cardiology 10/13/21 Chris Luz Maria Carlin [address] [place] [address] Referring Cardiology 10/27/21 Abhinav Garrett MD [address] [place] [address] Primary Staff Physician Cardiology 12/30/21 Product Scientist Relationship Specialty Start Date End Date Luz Maria Perez Scholastic Aptitude Test Grader Cardiology 10/13/21 Luz Maria Perez [address] [place] [address] Referring Cardiology 10/27/21 Abhinav Garrett MD [address] [place] [address] Primary Staff Physician Cardiology 12/30/21 Product Scientist Relationship Specialty Start Date End Date Luz Maria Perez Scholastic Aptitude Test Grader Cardiology 10/13/21 Luz Maria Perez [address] [place] [address] Referring Cardiology 10/27/21 Abhinav Garrett MD [address] [place] [address] Primary Staff Physician Cardiology 12/30/21 Product Scientist Relationship Specialty Start Date End Date Daria Stephenson MD [address] [facility] [address] [place] [address] PCP - General Family Medicine 04/28/22 Product Scientist Relationship Specialty Start Date End Date Luz Maria Perez Scholastic Aptitude Test Grader Cardiology 10/13/21 Luz Maria Perez [address] [place] [address] Referring Cardiology 10/27/21 Abhinav Garrett MD [address] [place] [address] Primary Staff Physician Cardiology 12/30/21 Product Scientist Relationship Specialty Start Date End Date Sruthi Ambrosio, COVER OPERATOR.AMBULANCE ATTENDANT [address] [place] [address] PCP - General Primary Care 12/02/22 Luz Maria Perez Scholastic Aptitude Test Grader Cardiology 10/13/21 Luz Maria Perez [address] [place] [address] Referring Cardiology 10/27/21 Abhinav Garrett MD [address] [place] [address] Primary Staff Physician Cardiology 12/30/21 Product Scientist Relationship Specialty Start Date End Date Sruthi Ambrosio, COVER OPERATOR.AMBULANCE ATTENDANT [address] [place] [address] PCP - General Primary Care 12/02/22 Luz Maria Perez Scholastic Aptitude Test Grader Cardiology 10/13/21 Luz Maria Perez [address] [place] [address] Referring Cardiology 10/27/21 Abhinav Garrett MD [address] [place] [address] Primary Staff Physician Cardiology 12/30/21 Product Scientist Relationship Specialty Start Date End Date Sruthi Ambrosio, COVER OPERATOR.AMBULANCE ATTENDANT [address] [place] [address] PCP - General Primary Care 12/02/22 Luz Maria Perez Scholastic Aptitude Test Grader Cardiology 10/13/21 Luz Maria Perez Carlin [address] [place] [address] Referring Cardiology 10/27/21 Abhinav Garrett MD [address] [place] [address] Primary Staff Physician Cardiology 12/30/21 Product Scientist Relationship Specialty Start Date End Date Sruthi Ambrosio, COVER OPERATOR.AMBULANCE ATTENDANT [address] [place] [address] PCP - General Primary Care 12/02/22 Luz Maria Perez Scholastic Aptitude Test Grader Cardiology 10/13/21 Luz Maria Perez Carlin [address] [place] [address] Referring Cardiology 10/27/21 Abhinav Garrett MD [address] [place] [address] Primary Staff Physician Cardiology 12/30/21 Product Scientist Relationship Specialty Start Date End Date Sruthi Ambrosio, COVER OPERATOR.AMBULANCE ATTENDANT [address] [place] [address] PCP - General Primary Care 12/02/22 Luz Maria Perez Scholastic Aptitude Test Grader Cardiology 10/13/21 Luz Maria Perez Carlin [address] [place] [address] Referring Cardiology 10/27/21 Abhinav Garrett MD [address] [place] [address] Primary Staff Physician Cardiology 12/30/21 Product Scientist Relationship Specialty Start Date End Date Sruthi Ambrosio, RIC.AMBULANCE ATTENDANT [address] [place] [address] PCP - General Primary Care 12/02/22 Luz Maria Perez Scholastic Aptitude Test Grader Cardiology 10/13/21 Luz Maria Perez [address] [place] [address] Referring Cardiology 10/27/21 Abhinav Garrett MD [address] [place] [address] Primary Staff Physician Cardiology 12/30/21 Product Scientist Relationship Specialty Start Date End Date Sruthi Ambrosio, COVER OPERATOR.AMBULANCE ATTENDANT [address] [place] [address] PCP - General Primary Care 12/02/22 Luz Maria Perez Scholastic Aptitude Test Grader Cardiology 10/13/21 Luz Maria Perez [address] [place] [address] Referring Cardiology 10/27/21 Abhinav Garrett MD [address] [place] [address] Primary Staff Physician Cardiology 12/30/21 Product Scientist Relationship Specialty Start Date End Date Sruthi Ambrosio, COVER OPERATOR.AMBULANCE ATTENDANT [address] [place] [address] PCP - General Primary Care 12/02/22 Luz Maria Perez Scholastic Aptitude Test Grader Cardiology 10/13/21 Luz Maria Perez [address] [place] [address] Referring Cardiology 10/27/21 Abhinav Garrett MD [address] [place] [address] Primary Staff Physician Cardiology 12/30/21 Product Scientist Relationship Specialty Start Date End Date Sruthi Ambrosio, COVER OPERATOR.AMBULANCE ATTENDANT [address] [place] [address] PCP - General Primary Care 12/02/22 Luz Maria Perez Scholastic Aptitude Test Grader Cardiology 10/13/21 Luz Maria Perez [address] [place] [address] Referring Cardiology 10/27/21 Abhinav Garrett MD [address] [place] [address] Primary Staff Physician Cardiology 12/30/21 Product Scientist Relationship Specialty Start Date End Date Sruthi Ambrosio, COVER OPERATOR.AMBULANCE ATTENDANT [address] [place] [address] PCP - General Primary Care 12/02/22 Luz Maria Perez Scholastic Aptitude Test Grader Cardiology 10/13/21 Luz Maria Perez [address] [place] [address] Referring Cardiology 10/27/21 Abhinav Garrett MD [address] [place] [address] Primary Staff Physician Cardiology 12/30/21 Product Scientist Relationship Specialty Start Date End Date Sruthi Ambrosio, COVER OPERATOR.AMBULANCE ATTENDANT [address] [place] [address] PCP - General Primary Care 12/02/22 Luz Maria Perez Scholastic Aptitude Test Grader Cardiology 10/13/21 Luz Maria Perez [address] [place] [address] Referring Cardiology 10/27/21 Abhinav Garrett MD [address] [place] [address] Primary Staff Physician Cardiology 12/30/21 Product Scientist Relationship Specialty Start Date End Date Sruthi Ambrosio, COVER OPERATOR.AMBULANCE ATTENDANT [address] [place] [address] PCP - General Primary Care 12/02/22 Luz Maria Perez Scholastic Aptitude Test Grader Cardiology 10/13/21 Luz Maria Perez [address] [place] [address] Referring Cardiology 10/27/21 Abhinav Garrett MD [address] [place] [address] Primary Staff Physician Cardiology 12/30/21 Product Scientist Relationship Specialty Start Date End Date Sruthi Ambrosio, COVER OPERATOR.AMBULANCE ATTENDANT [address] [place] [address] PCP - General Primary Care 12/02/22 Luz Maria Perez Scholastic Aptitude Test Grader Cardiology 10/13/21 Luz Maria Perez [address] [place] [address] Referring Cardiology 10/27/21 Abhinav Garrett MD [address] [place] [address] Primary Staff Physician Cardiology 12/30/21 Product Scientist Relationship Specialty Start Date End Date Sruthi Ambrosio, COVER OPERATOR.AMBULANCE ATTENDANT [address] [place] [address] PCP - General Primary Care 12/02/22 Luz Maria Perez Scholastic Aptitude Test Grader Cardiology 10/13/21 Luz Maria Perez [address] [place] [address] Referring Cardiology 10/27/21 Abhinav Garrett MD [address] [place] [address] Primary Staff Physician Cardiology 12/30/21 Product Scientist Relationship Specialty Start Date End Date Sruthi Ambrosio, COVER OPERATOR.AMBULANCE ATTENDANT [address] [place] [address] PCP - General Primary Care 12/02/22 Luz Maria Perez Scholastic Aptitude Test Grader Cardiology 10/13/21 Luz Maria Perez [address] [place] [address] Referring Cardiology 10/27/21 Abhinav Garrett MD [address] [place] [address] Primary Staff Physician Cardiology 12/30/21 Product Scientist Relationship Specialty Start Date End Date Sruthi Ambrosio, COVER OPERATOR.AMBULANCE ATTENDANT [address] [place] [address] PCP - General Primary Care 12/02/22 Luz Maria Perez Scholastic Aptitude Test Grader Cardiology 10/13/21 Luz Maria Perez [address] [place] [address] Referring Cardiology 10/27/21 Abhinav Garrett MD [address] [place] [address] Primary Staff Physician Cardiology 12/30/21 Product Scientist Relationship Specialty Start Date End Date Sruthi Ambrosio, COVER OPERATOR.AMBULANCE ATTENDANT [address] [place] [address] PCP - General Primary Care 12/02/22 Luz Maria Perez Scholastic Aptitude Test Grader Cardiology 10/13/21 Luz Maria Perez [address] [place] [address] Referring Cardiology 10/27/21 Abhinav Garrett MD [address] [place] [address] Primary Staff Physician Cardiology 12/30/21 Product Scientist Relationship Specialty Start Date End Date Sruthi Ambrosio APRN.AMBULANCE ATTENDANT [address] [place] [address] PCP - General Primary Care 12/02/22 Luz Maria Perez Scholastic Aptitude Test Grader Cardiology 10/13/21 Luz Maria Perez [address] [place] [address] Referring Cardiology 10/27/21 Abhinav Garrett MD [address] [place] [address] Primary Staff Physician Cardiology 12/30/21 Team Status: [...] DO Attending Provider, Referring Pr ovider Active Product Scientist Relationship Specialty Start Date End Date Sruthi Ambrosio APRN - AMBULANCE ATTENDANT [address] [facility] [address] [place] [address] PCP - General Nurse Practitioner 05/06/23 Product Scientist Relationship Specialty Start Date End Date Sruthi Ambrosio, COVER OPERATOR - AMBULANCE ATTENDANT [address] [facility] [address] [place] [address] PCP - General Nurse Practitioner 05/06/23 Product Scientist Relationship Specialty Start Date End Date Sruthi Ambrosio, COVER OPERATOR.AMBULANCE ATTENDANT [address] [place] [address] PCP - General Primary Care 12/02/22 Luz Maria Perez MD Scholastic Aptitude Test Grader Cardiology 10/13/21 Luz Maria Perez MD [address] [place] [address] Referring Cardiology 10/27/21 Abhinav Garrett MD [address] [place] [address] Primary Staff Physician Cardiology 12/30/21 Product Scientist Relationship Specialty Start Date End Date Sruthi Ambrosio, COVER OPERATOR.AMBULANCE ATTENDANT [address] [place] [address] PCP - General Primary Care 12/02/22 Luz Maria Perez MD Scholastic Aptitude Test Grader Cardiology 10/13/21 Luz Maria Perez MD [address] [place] [address] Referring Cardiology 10/27/21 Abhinav Garrett MD [address] [place] [address] Primary Staff Physician Cardiology 12/30/21 Product Scientist Relationship Specialty Start Date End Date Sruthi Ambrosio, COVER OPERATOR.AMBULANCE ATTENDANT [address] [place] [address] PCP - General Primary Care 12/02/22 Luz Maria Perez MD Scholastic Aptitude Test Grader Cardiology 10/13/21 Luz Maria Perez MD [address] [place] [address] Referring Cardiology 10/27/21 Abhinav Garrett MD [address] [place] [address] Primary Staff Physician Cardiology 12/30/21 Product Scientist Relationship Specialty Start Date End Date Sruthi Ambrosio, COVER OPERATOR.AMBULANCE ATTENDANT [address] [place] [address] PCP - General Primary Care 12/02/22 Luz Maria Perez MD Scholastic Aptitude Test Grader Cardiology 10/13/21 Luz Maria Perez MD [address] [place] [address] Referring Cardiology 10/27/21 Abhinav Garrett MD [address] [place] [address] Primary Staff Physician Cardiology 12/30/21 Product Scientist Relationship Specialty Start Date End Date Robyn Taylor, COVER OPERATOR.AMBULANCE ATTENDANT [address] [place] [address] PCP - General Primary Care 09/05/23 Luz Maria Perez MD Scholastic Aptitude Test Grader Cardiology 10/13/21 Luz Maria Perez MD [address] [place] [address] Referring Cardiology 10/27/21 Abhinav Garrett MD [address] [place] [address] Primary Staff Physician Cardiology 12/30/21 Product Scientist Relationship Specialty Start Date End Date Sruthi Ambrosio COVER OPERATOR.AMBULANCE ATTENDANT [address] [place] [address] PCP - General Primary Care 11/18/23 Luz Maria Perez MD Scholastic Aptitude Test Grader Cardiology 10/13/21 Luz Maria Perez MD [address] [facility] [address] [place] [address] Referring Cardiology 10/27/21 Abhinav Garrett MD [address] [place] [address] Primary Staff Physician Cardiology 12/30/21 Product Scientist Relationship Specialty Start Date End Date Sruthi Ambrosio COVER OPERATOR.AMBULANCE ATTENDANT [address] [place] [address] PCP - General Primary Care 11/18/23 Luz Maria Perez MD Scholastic Aptitude Test Grader Cardiology 10/13/21 Luz Maria Perez MD [address] [place] [address] Referring Cardiology 10/27/21 Abhinav Garrett MD [address] [place] [address] Primary Staff Physician Cardiology 12/30/21 Product Scientist Relationship Specialty Start Date End Date Sruthi Ambrosio, COVER OPERATOR.AMBULANCE ATTENDANT [address] [place] [address] PCP - General Primary Care 11/18/23 Luz Maria Perez MD Scholastic Aptitude Test Grader Cardiology 10/13/21 Luz Maria Perez MD [address] [address] Referring Cardiology 10/27/21 Abhinav Garrett MD [address] [place] [address] Primary Staff Physician Cardiology 12/30/21 Product Scientist Relationship Specialty Start Date End Date Sruthi Ambrosio, COVER OPERATOR.AMBULANCE ATTENDANT [address] [place] [address] PCP - General Primary Care 11/18/23 Luz Maria Perez MD Scholastic Aptitude Test Grader Cardiology 10/13/21 Luz Maria Perez MD [address] [place] [address] Referring Cardiology 10/27/21 Abhinav Garrett MD [address] [place] [address] Primary Staff Physician Cardiology 12/30/21 Product Scientist Relationship Specialty Start Date End Date Sruthi Ambrosio, COVER OPERATOR.AMBULANCE ATTENDANT [address] [place] [address] PCP - General Primary Care 11/18/23 Luz Maria Perez MD Scholastic Aptitude Test Grader Cardiology 10/13/21 Luz Maria Perez MD [address] [place] [address] Referring Cardiology 10/27/21 Abhinav Garrett MD [address] [place] [address] Primary Staff Physician Cardiology 12/30/21 Product Scientist Relationship Specialty Start Date End Date Sruthi Ambrosio, COVER OPERATOR.AMBULANCE ATTENDANT [address] [place] [address] PCP - General Primary Care 11/18/23 Luz Maria Perez MD Scholastic Aptitude Test Grader Cardiology 10/13/21 Luz Maria Perez MD [address] [place] [address] Referring Cardiology 10/27/21 Abhinav Garrett MD [address] [place] [address] Primary Staff Physician Cardiology 12/30/21 Product Scientist Relationship Specialty Start Date End Date Sruthi Ambrosio, COVER OPERATOR.AMBULANCE ATTENDANT [address] [place] [address] PCP - General Primary Care 11/18/23 Luz Maria Perez MD Scholastic Aptitude Test Grader Cardiology 10/13/21 Luz Maria Perez MD [address] [place] [address] Referring Cardiology 10/27/21 Abhinav Garrett MD [address] [place] [address] Primary Staff Physician Cardiology 12/30/21 Product Scientist Relationship Specialty Start Date End Date Sruthi Ambrosio, COVER OPERATOR.AMBULANCE ATTENDANT [facility] [place] [address] PCP - General Primary Care 11/18/23 Luz Maria Perez MD Scholastic Aptitude Test Grader Cardiology 10/13/21 Luz Maria Perez MD [address] [place] [address] Referring Cardiology 10/27/21 Abhinav Garrett MD [address] [place] [address] Primary Staff Physician Cardiology 12/30/21 Product Scientist Relationship Specialty Start Date End Date Sruthi Ambrosio, COVER OPERATOR.AMBULANCE ATTENDANT [address] [place] [address] PCP - General Primary Care 11/18/23 Luz Maria Perez MD Scholastic Aptitude Test Grader Cardiology 10/13/21 Luz Maria Perez MD [address] [place] [address] Referring Cardiology 10/27/21 Abhinav Garrett MD [address] [place] [address] Primary Staff Physician Cardiology 12/30/21 Product Scientist Relationship Specialty Start Date End Date Sruthi Ambrosio, COVER OPERATOR.AMBULANCE ATTENDANT [address] [place] [address] PCP - General Primary Care 11/18/23 Luz Maria Perez MD Scholastic Aptitude Test Grader Cardiology 10/13/21 Luz Maria Peerz MD [address] [address] Referring Cardiology 10/27/21 Abhinav Garrett MD [address] [place] [address] Primary Staff Physician Cardiology 12/30/21 Product Scientist Relationship Specialty Start Date End Date Sruthi Ambrosio, COVER OPERATOR.AMBULANCE ATTENDANT [address] [place] [address] PCP - General Primary Care 11/18/23 Luz Maria Perez MD Scholastic Aptitude Test Grader Cardiology 10/13/21 Luz Maria Perez MD [address] [facility] [address] [place] [address] Referring Cardiology 10/27/21 Abhinav Garrett MD [address] [place] [address] Primary Staff Physician Cardiology 12/30/21 Product Scientist Relationship Specialty Start Date End Date Sruthi Ambrosio, COVER OPERATOR.AMBULANCE ATTENDANT [address] [place] [address] PCP - General Primary Care 11/18/23 Luz Maria Perez MD Scholastic Aptitude Test Grader Cardiology 10/13/21 Luz Maria Perez MD [address] [facility] [address] [place] [address] Referring Cardiology 10/27/21 Abhinav Garrett MD [address] [place] [address] Primary Staff Physician Cardiology 12/30/21 Product Scientist Relationship Specialty Start Date End Date Roscoe Umanzor MD [address] [place] [address] PCP - General Internal Medicine 05/14/24 Roscoe Umanzor MD [address] [place] [address] Referring Physician Internal Medicine 05/14/24 Product Scientist Relationship Specialty Start Date End Date Sruthi Ambrosio, COVER OPERATOR.AMBULANCE ATTENDANT [address] [place] [address] PCP - General Primary Care 11/18/23 Luz Maria Perez MD Scholastic Aptitude Test Grader Cardiology 10/13/21 Luz Maria Perez MD [address] [facility] [address] [place] [address] Referring Cardiology 10/27/21 Abhinav Garrett MD [address] [place] [address] Primary Staff Physician Cardiology 12/30/21 Product Scientist Relationship Specialty Start Date End Date Daria Stephenson MD [address] [place] [address] PCP - General Family Medicine 04/28/22 Product Scientist Relationship Specialty Start Date End Date Daria Stephenson MD [address] [place] [address] PCP - General Family Medicine 04/28/22 Product Scientist Relationship Specialty Start Date End Date Daria Stephenson MD [address] [place] [address] PCP - General Family Medicine 04/28/22 Product Scientist Relationship Specialty Start Date End Date Daria Stephenson MD [address] [place] [address] PCP - General Family Medicine 04/28/22 Product Scientist Relationship Specialty Start Date End Date Daria Stephenson MD [address] [place] [address] PCP - General Family Medicine 04/28/22 Product Scientist Relationship Specialty Start Date End Date Roscoe Umanzor MD [address] [place], [place] [address] PCP - General Internal Medicine 05/14/24 Roscoe Umanzor MD [address] [place] [address] Referring Physician Internal Medicine 05/14/24 Product Scientist Relationship Specialty Start Date End Date Sruthi Ambrosio, COVER OPERATOR.AMBULANCE ATTENDANT [address] [place] [address] PCP - General Primary Care 11/18/23 Luz Maria Perez MD Scholastic Aptitude Test Grader Cardiology 10/13/21 Luz Maria Perez MD [address] [address] Referring Cardiology 10/27/21 Abhinav Garrett MD [address] [place] [address] Primary Staff Physician Cardiology 12/30/21 Product Scientist Relationship Specialty Start Date End Date Sruthi Ambrosio, COVER OPERATOR.AMBULANCE ATTENDANT [address] [place] [address] PCP - General Primary Care 11/18/23 Luz Maria Perez MD Scholastic Aptitude Test Grader Cardiology 10/13/21 Luz Maria Perez MD [address] [facility] [address] [place] [address] Referring Cardiology 10/27/21 Abhinav Garrett MD [address] [place] [address] Primary Staff Physician Cardiology 12/30/21 Product Scientist Relationship Specialty Start Date End Date Sruthi Ambrosio, COVER OPERATOR.AMBULANCE ATTENDANT [address] [place] [address] PCP - General Primary Care 11/18/23 Luz Maria Perez MD Scholastic Aptitude Test Grader Cardiology 10/13/21 Luz Maria Perez MD [address] [place] [address] Referring Cardiology 10/27/21 Abhinav Garrett MD [address] [place], [place] [address] Primary Staff Physician Cardiology 12/30/21 Product Scientist Relationship Specialty Start Date End Date Roscoe Umanzor MD [address] [place] [address] PCP - General Internal Medicine 05/14/24 Roscoe Umanzor MD [address] [place] [address] Referring Physician Internal Medicine 05/14/24 Product Scientist Relationship Specialty Start Date End Date Sruthi Ambrosio, COVER OPERATOR.AMBULANCE ATTENDANT [address] [place] [address] PCP - General Primary Care 11/18/23 Luz Maria Perez MD Scholastic Aptitude Test Grader Cardiology 10/13/21 Luz Maria Perez MD [address] [place] [address] Referring Cardiology 10/27/21 Abhinav Garrett MD [address] [place] [address] Primary Staff Physician Cardiology 12/30/21 Product Scientist Relationship Specialty Start Date End Date Sruthi Ambrosio, COVER OPERATOR.AMBULANCE ATTENDANT [facility] [place] [address] PCP - General Primary Care 11/18/23 Luz Maria Perez MD Scholastic Aptitude Test Grader Cardiology 10/13/21 Luz Maria Perez MD [address] [place] [address] Referring Cardiology 10/27/21 Abhinav Garrett MD [address] [place] [address] Primary Staff Physician Cardiology 12/30/21 Product Scientist Relationship Specialty Start Date End Date Sruthi Ambrosio, COVER OPERATOR.AMBULANCE ATTENDANT [address] [place] [address] PCP - General Primary Care 11/18/23 Luz Maria Perez MD Scholastic Aptitude Test Grader Cardiology 10/13/21 Luz Maria Perez MD [address] [place] [address] Referring Cardiology 10/27/21 Abhinav Garrett MD [address] [place] [address] Primary Staff Physician Cardiology 12/30/21 Product Scientist Relationship Specialty Start Date End Date Sruthi Ambrosio, COVER OPERATOR.AMBULANCE ATTENDANT [address] [place] [address] PCP - General Primary Care 11/18/23 Luz Maria Perez MD Scholastic Aptitude Test Grader Cardiology 10/13/21 Luz Maria Perez MD [address] [place] [address] Referring Cardiology 10/27/21 Abhinav Garrett MD [address] [place] [address] Primary Staff Physician Cardiology 12/30/21 Product Scientist Relationship Specialty Start Date End Date Sruthi Ambrosio, COVER OPERATOR.AMBULANCE ATTENDANT [address] [place] [address] PCP - General Primary Care 11/18/23 Luz Maria Perez MD [address] [place] [address] Referring Cardiology 10/27/21 Abhinav Garrett MD [address] [place] [address] Primary Staff Physician Cardiology 12/30/21 Luz Maria Perez MD [address] [place] [address] Scholastic Aptitude Test Grader Internal Medicine 11/22/24 Erin Morris MD [address] [place] [address] Scholastic Aptitude Test Grader Cardiology 11/22/24 Product Scientist Relationship Specialty Start Date End Date Sruthi Ambrosio, COVER OPERATOR.AMBULANCE ATTENDANT [address] [place] [address] PCP - General Primary Care 11/18/23 Luz Maria Perez MD [address] [place] [address] Referring Cardiology 10/27/21 Abhinav Garrett MD [address] [place] [address] Primary Staff Physician Cardiology 12/30/21 Luz Maria Perez MD [address] [place] [address] Scholastic Aptitude Test Grader Internal Medicine 11/22/24 Erin Morris MD [address] [place] [address] Scholastic Aptitude Test Grader Cardiology 11/22/24 Roscoe Arias MD [address] [place] [address] Surgeon Cardiac Surg 11/23/24 Product Scientist Relationship Specialty Start Date End Date Sruthi Ambrosio, COVER OPERATOR.AMBULANCE ATTENDANT [address] [place] [address] PCP - General Primary Care 11/18/23 Luz Maria Perez MD [address] [facility] [address] [place] [address] Referring Cardiology 10/27/21 Abhinav Garrett MD [address] [place] [address] Primary Staff Physician Cardiology 12/30/21 Luz Maria Perez MD [address] [place] [address] Scholastic Aptitude Test Grader Internal Medicine 11/22/24 Erin Morris MD [address] [place] [address] Scholastic Aptitude Test Grader Cardiology 11/22/24 Roscoe Arias MD [address] [place] [address] Surgeon Cardiac Surg 11/23/24 Product Scientist Relationship Specialty Start Date End Date Sruthi Ambrosio, COVER OPERATOR.AMBULANCE ATTENDANT [address] [place] [address] PCP - General Primary Care 11/18/23 Luz Maria Perez MD [address] [address] Referring Cardiology 10/27/21 Abhinav Garrett MD [address] [place] [address] Primary Staff Physician Cardiology 12/30/21 Luz Maria Perez MD [address] [address] Scholastic Aptitude Test Grader Internal Medicine 11/22/24 Erin Morris MD [address] [place] [address] Scholastic Aptitude Test Grader Cardiology 11/22/24 Roscoe Arias MD [address] [place] [address] Surgeon Cardiac Surg 11/23/24 Team Status: Active Member Role Status Dates ANAEKATERINA ERNA Primary Care Provider Active Team Status: Inactive Member Role Status Dates ANAEKATERINAERNA Primary Care Provider Active Star t: December 12, 2024 End: December 12, 2024 Dr. Freddy Mujica MD Attending Provider Active Start: December 12, 2024 End: December 12, 2024 Dr. Freddy Mujica MD Referring Provider Active Start: December 12, 2024 End: December 12, 2024 Product Scientist Relationship Specialty Start Date End Date Sruthi Ambrosio, COVER OPERATOR.AMBULANCE ATTENDANT [address] [place] [address] PCP - General Primary Care 11/18/23 Luz Maria Perez MD [address] [place] [address] Referring Cardiology 10/27/21 Abhinav Garrett MD [address] [place] [address] Primary Staff Physician Cardiology 12/30/21 Luz Maria Perez MD [address] [place] [address] Scholastic Aptitude Test Grader Internal Medicine 11/22/24 Erin Morris MD [address] [place] [address] Scholastic Aptitude Test Grader Cardiology 11/22/24 Roscoe Arias MD [address] [place] [address] Surgeon Cardiac Surg 11/23/24 Product Scientist Relationship Specialty Start Date End Date Sruthi Ambrosio, COVER OPERATOR.AMBULANCE ATTENDANT [address] [place] [address] PCP - General Primary Care 11/18/23 Luz Maria Perez MD [address] [address] Referring Cardiology 10/27/21 Abhinav Garrett MD [address] [place] [address] Primary Staff Physician Cardiology 12/30/21 Luz Maria Perez MD [address] [address] Scholastic Aptitude Test Grader Internal Medicine 11/22/24 Erin Morris MD [address] [place] [address] Scholastic Aptitude Test Grader Cardiology 11/22/24 Roscoe Arias MD [address] [place] [address] Surgeon Cardiac Surg 11/23/24 Product Scientist Relationship Specialty Start Date End Date Roscoe Umanzor MD, PhD [address] [place] [address] PCP - General Internal Medicine 12/20/24 Luz Maria Perez MD [address] [address] Referring Cardiology 10/27/21 Abhinav Garrett MD [address] [place] [address] Primary Staff Physician Cardiology 12/30/21 Luz Maria Perez MD [address] [address] Scholastic Aptitude Test Grader Internal Medicine 11/22/24 Erin Morris MD [address] [place] [address] Scholastic Aptitude Test Grader Cardiology 11/22/24 Roscoe Arias MD [address] [place] [address] Surgeon Cardiac Surg 11/23/24 Product Scientist Relationship Specialty Start Date End Date Roscoe Umanzor MD, PhD [address] [place] [address] PCP - General Internal Medicine 12/20/24 Luz Maria Perez MD [address] [address] Referring Cardiology 10/27/21 Abhinav Garrett MD [address] [place] [address] Primary Staff Physician Cardiology 12/30/21 Luz Maria Perez MD [address] [address] Scholastic Aptitude Test Grader Internal Medicine 11/22/24 Erin Morris MD [address] [place] [address] Scholastic Aptitude Test Grader Cardiology 11/22/24 Roscoe Arias MD [address] [place] [address] Surgeon Cardiac Surg 11/23/24 Product Scientist Relationship Specialty Start Date End Date Roscoe Umanzor MD, PhD [address] [facility] [place] [place] [address] PCP - General Internal Medicine 12/20/24 Luz Maria Perez MD [address] [place] [address] Referring Cardiology 10/27/21 Abhinav Garrett MD [address] [place] [address] Primary Staff Physician Cardiology 12/30/21 Luz Maria Perez MD [address] [address] Scholastic Aptitude Test Grader Internal Medicine 11/22/24 Erin Morris MD [address] [place] [address] Scholastic Aptitude Test Grader Cardiology 11/22/24 Roscoe Arias MD [address] [place] [address] Surgeon Cardiac Surg 11/23/24 Product Scientist Relationship Specialty Start Date End Date Roscoe Umanzor MD, PhD [address] [facility] [place] [place] [address] PCP - General Internal Medicine 12/20/24 Luz Maria Perez MD [address] [address] Referring Cardiology 10/27/21 Abhinav Garrett MD [address] [place] [address] Primary Staff Physician Cardiology 12/30/21 Luz Maria Perez MD [address] [place] [address] Scholastic Aptitude Test Grader Internal Medicine 11/22/24 Erin Morris MD [address] [place] [address] Scholastic Aptitude Test Grader Cardiology 11/22/24 Roscoe Arias MD [address] [place] [address] Surgeon Cardiac Surg 11/23/24 Product Scientist Relationship Specialty Start Date End Date Roscoe Umanzor MD, PhD [address] [place] [address] PCP - General Internal Medicine 12/20/24 Luz Maria Perez MD [address] [address] Referring Cardiology 10/27/21 Abhinav Garrett MD [address] [place] [address] Primary Staff Physician Cardiology 12/30/21 Luz Maria Perez MD [address] [facility] [address] [place] [address] Scholastic Aptitude Test Grader Internal Medicine 11/22/24 Erin Morirs MD [address] [place] [address] Scholastic Aptitude Test Grader Cardiology 11/22/24 Roscoe Arias MD [address] [place] [address] Surgeon Cardiac Surg 11/23/24 Product Scientist Relationship Specialty Start Date End Date Roscoe Umanzor MD, PhD [address] [place] [address] PCP - General Internal Medicine 12/20/24 Luz Maria Perez MD [address] [place] [address] Referring Cardiology 10/27/21 Abhinav Garrett MD [address] [place] [address] Primary Staff Physician Cardiology 12/30/21 Luz Maria Perez MD [address] [place] [address] Scholastic Aptitude Test Grader Internal Medicine 11/22/24 Erin Morris MD [address] [place] [address] Scholastic Aptitude Test Grader Cardiology 11/22/24 Roscoe Arias MD [address] [place] [address] Surgeon Cardiac Surg 11/23/24 Product Scientist Relationship Specialty Start Date End Date Roscoe Umanzor MD, PhD [address] [place] [address] PCP - General Internal Medicine 12/20/24 Luz Maria Perez MD [address] [address] Referring Cardiology 10/27/21 Abhinav Garrett MD [address] [place] [address] Primary Staff Physician Cardiology 12/30/21 Luz Maria Perez MD [address] [place] [address] Scholastic Aptitude Test Grader Internal Medicine 11/22/24 Erin Morris MD [address] [place] [address] Scholastic Aptitude Test Grader Cardiology 11/22/24 Roscoe Arias MD [address] [place] [address] Surgeon Cardiac Surg 11/23/24 Product Scientist Relationship Specialty Start Date End Date Roscoe Umanzor MD, PhD [address] [place] [address] PCP - General Internal Medicine 12/20/24 Luz Maria Perez MD [address] [address] Referring Cardiology 10/27/21 Abhinav Garrett MD [address] [place] [address] Primary Staff Physician Cardiology 12/30/21 Luz Maria Perez MD [address] [facility] [address] [place] [address] Scholastic Aptitude Test Grader Internal Medicine 11/22/24 Erin Morris MD [address] [place] [address] Scholastic Aptitude Test Grader Cardiology 11/22/24 Roscoe Arias MD [address] [place] [address] Surgeon Cardiac Surg 11/23/24 Product Scientist Relationship Specialty Start Date End Date Roscoe Umanzor MD, PhD [address] [facility] [place] [address] PCP - General Internal Medicine 12/20/24 Luz Maria Perez MD [address] [place] [address] Referring Cardiology 10/27/21 Abhinav Garrett MD [address] [place] [address] Primary Staff Physician Cardiology 12/30/21 Luz Maria Perez MD [address] [place] [address] Scholastic Aptitude Test Grader Internal Medicine 11/22/24 Erin Morris MD [address] [place] [address] Scholastic Aptitude Test Grader Cardiology 11/22/24 Roscoe Arias MD [address] [place] [address] Surgeon Cardiac Surg 11/23/24 Product Scientist Relationship Specialty Start Date End Date Roscoe Umanzor MD, PhD [address] [facility] [place] [address] PCP - General Internal Medicine 12/20/24 Luz Maria Perez MD [address] [place] [address] Referring Cardiology 10/27/21 Abhinav Garrett MD [address] [place] [address] Primary Staff Physician Cardiology 12/30/21 Luz Maria Perez MD [address] [place] [address] Scholastic Aptitude Test Grader Internal Medicine 11/22/24 Erin Morris MD [address] [place] [address] Scholastic Aptitude Test Grader Cardiology 11/22/24 Roscoe Arias MD [address] [place] [address] Surgeon Cardiac Surg 11/23/24 Product Scientist Relationship Specialty Start Date End Date Robyn Taylor, COVER OPERATOR.AMBULANCE ATTENDANT [address] [place] [address] PCP - General Primary Care 01/10/25 Luz Maria Perez MD [address] [address] Referring Cardiology 10/27/21 Abhinav Garrett MD [address] [place] [address] Primary Staff Physician Cardiology 12/30/21 Luz Maria Perez MD [address] [facility] [address] [place] [address] Scholastic Aptitude Test Grader Internal Medicine 11/22/24 Erin Morris MD [address] [place] [address] Scholastic Aptitude Test Grader Cardiology 11/22/24 Roscoe Arias MD [address] [place] [address] Surgeon Cardiac Surg 11/23/24 Product Scientist Relationship Specialty Start Date End Date Robyn Taylor APRN.AMBULANCE ATTENDANT [address] [place] [address] PCP - General Primary Care 01/10/25 Luz Maria Perez MD [address] [place] [address] Referring Cardiology 10/27/21 Abhinav Garrett MD [address] [place] [address] Primary Staff Physician Cardiology 12/30/21 Luz Maria Perez MD [address] [address] Scholastic Aptitude Test Grader Internal Medicine 11/22/24 Erin Morris MD [address] [place] [address] Scholastic Aptitude Test Grader Cardiology 11/22/24 Roscoe Arias MD [address] [place] [address] Surgeon Cardiac Surg 11/23/24 Kristal Desai MD [address] [address] Endocrinology 01/09/24 Madison Regan MD [address] [place] [address] [phone] (Work) Orthopedics 01/10/25 Freddy Mujica MD [address] [place] [address] Anesthesiology 01/10/25 Product Scientist Relationship Specialty Start Date End Date Robyn Taylor, RIC.AMBULANCE ATTENDANT [address] [place] [address] PCP - General Primary Care 01/10/25 Luz Maria Perez MD [address] [address] Referring Cardiology 10/27/21 Abhinav Garrett MD [address] [place] [address] Primary Staff Physician Cardiology 12/30/21 Luz Maria Perez MD [address] [address] Scholastic Aptitude Test Grader Internal Medicine 11/22/24 Erin Morris MD [address] [place] [address] Scholastic Aptitude Test Grader Cardiology 11/22/24 Roscoe Arias MD [address] [place], [place] [address]67[address] Surgeon Cardiac Surg 11/23/24 Kristal Desai MD [address] [address] Endocrinology 01/09/24 Madison Regan MD [address] [place] [address] -[phone] (Work) Orthopedics 01/10/25 Freddy Mujica MD [address] [place], [place] 360[address] Anesthesiology 01/10/25 Product Scientist Relationship Specialty Start Date End Date Robyn Taylor APRN.AMBULANCE ATTENDANT [address] [place] [address] PCP - General Primary Care 01/10/25 Luz Maria Perez MD [address] [address] Referring Cardiology 10/27/21 Abhinav Garrett MD [address] [place] [address] Primary Staff Physician Cardiology 12/30/21 Luz Maria Perez MD [address] [address] Scholastic Aptitude Test Grader Internal Medicine 11/22/24 Erin Morris MD 95 [place] [address] Scholastic Aptitude Test Grader Cardiology 11/22/24 Roscoe Arias MD [address] [place] [address] Surgeon Cardiac Surg 11/23/24 Kristal Desai MD [address] [place] [address] Endocrinology 01/09/24 Madison Regan MD [address] [place] [address] [phone] (Work) Orthopedics 01/10/25 Freddy Mujica MD [address] [place], [place] [address]41 Anesthesiology 01/10/25 Product Scientist Relationship Specialty Start Date End Date Robyn Taylor, COVER OPERATOR.AMBULANCE ATTENDANT [address] [place] [address] PCP - General Primary Care 01/10/25 Luz Maria Perez MD [address] [address] Referring Cardiology 10/27/21 Abhinav Garrett MD [address] [place], [place] [address] Primary Staff Physician Cardiology 12/30/21 Luz Maria Perez MD [address] [address] Scholastic Aptitude Test Grader Internal Medicine 11/22/24 Erin Morris MD [address] [place] [address] Scholastic Aptitude Test Grader Cardiology 11/22/24 Roscoe Arias MD [address] [place] [address] Surgeon Cardiac Surg 11/23/24 Kristal Desai MD [address] [place] [address] Endocrinology 01/09/24 Madison Regan MD [address] [place] [address] [phone] (Work) Orthopedics 01/10/25 Freddy Mujica MD [address] [place] [address] Anesthesiology 01/10/25 13, Pharmacist [address] [place] [address] Pharmacist Pharmacy 01/15/25 Product Scientist Relationship Specialty Start Date End Date Robyn Taylor, COVER OPERATOR.AMBULANCE ATTENDANT [address] [place] [address] PCP - General Primary Care 01/10/25 Luz Maria Perez MD [address] [address] Referring Cardiology 10/27/21 Abhinav Garrett MD [address] [place] [address] Primary Staff Physician Cardiology 12/30/21 Luz Maria Perez MD [address] [address] Scholastic Aptitude Test Grader Internal Medicine 11/22/24 Erin Morris MD [address] [place] [address] Scholastic Aptitude Test Grader Cardiology 11/22/24 Roscoe Arias MD [address] [place] [address] Surgeon Cardiac Surg 11/23/24 Kristal Desai MD [address] [address] Endocrinology 01/09/24 Madison Regan MD [address] [place] [address] -[phone] (Work) Orthopedics 01/10/25 Freddy Mujica MD [address] [place] [address] Anesthesiology 01/10/25 13, Pharmacist [address] [place] [address] Pharmacist Pharmacy 01/15/25 Product Scientist Relationship Specialty Start Date End Date Robyn Taylor, COVER OPERATOR.AMBULANCE ATTENDANT [address] [place] [address] PCP - General Primary Care 01/10/25 Luz Maria Perez MD [address] [address] Referring Cardiology 10/27/21 Abhinav Garrett MD [address] [place] [address] Primary Staff Physician Cardiology 12/30/21 Luz Maria Perez MD [address] [address] Scholastic Aptitude Test Grader Internal Medicine 11/22/24 Erin Morris MD [address] [place] [address] Scholastic Aptitude Test Grader Cardiology 11/22/24 Roscoe Arias MD [address] [place] [address] Surgeon Cardiac Surg 11/23/24 Kristal Desai MD [address] [facility] [address] [place] [address] Endocrinology 01/09/24 Madison Regan MD [address] [place] [address] [phone] (Work) Orthopedics 01/10/25 Freddy Mujica MD [address] [place] [address] Anesthesiology 01/10/25 13, Pharmacist [address] [place] [address] Pharmacist Pharmacy 01/15/25 Product Scientist Relationship Specialty Start Date End Date Robyn Taylor, COVER OPERATOR.AMBULANCE ATTENDANT [address] [place] [address] PCP - General Primary Care 01/10/25 Luz Maria Perez MD [address] [address] Referring Cardiology 10/27/21 Abhinav Garrett MD [address] [place] [address] Primary Staff Physician Cardiology 12/30/21 Luz Maria Perez MD [address] [address] Scholastic Aptitude Test Grader Internal Medicine 11/22/24 Erin Morris MD [address] [place] [address] Scholastic Aptitude Test Grader Cardiology 11/22/24 Roscoe Arias MD [address] [place] [address] Surgeon Cardiac Surg 11/23/24 Kristal Desai MD [address] [facility] [address] [place] [address] Endocrinology 01/09/24 Madison Regan MD [address] [place] [address] [phone] (Work) Orthopedics 01/10/25 Freddy Mujica MD [address] [place] [address] Anesthesiology 01/10/25 13, Pharmacist [phone] [place], [place] [id number] Pharmacist Pharmacy 01/15/25 Team Status: Active Member Role/Relationship Status Dates ROSCOE UMANZOR Primary Care Provider [...] Referring Provider Active Start: January 17, 2025 Product Scientist Relationship Specialty Start Date End Date Robyn Taylor, RIC.AMBULANCE ATTENDANT [address] [place] [address] PCP - General Primary Care 01/10/25 Luz Maria Perez MD [address] [address] Referring Cardiology 10/27/21 Abhinav Garrett MD [address] [place] [address] Primary Staff Physician Cardiology 12/30/21 Luz Maria Perez MD [address] [address] Scholastic Aptitude Test Grader Internal Medicine 11/22/24 Erin Morris MD [address] [place] [address] Scholastic Aptitude Test Grader Cardiology 11/22/24 Roscoe Arisa MD [address] [place] [address] Surgeon Cardiac Surg 11/23/24 Kristal Desai MD [address] [place] [address] Endocrinology 01/09/24 Madison Regan MD [address] [place] [address] -[phone] (Work) Orthopedics 01/10/25 Freddy Mujica MD [address] [place] [address] Anesthesiology 01/10/25 13, Pharmacist [address] [place] [address] Pharmacist Pharmacy 01/15/25 Product Scientist Relationship Specialty Start Date End Date Roscoe Umanzor MD, PhD [address] [place] [address] PCP - General Internal Medicine 12/20/24 01/09/25 Luz Maria Perez MD [address] [address] Referring Cardiology 10/27/21 Abhniav Garrett MD [address] [place] [address] Primary Staff Physician Cardiology 12/30/21 Luz Maria Perez MD [address] [address] Scholastic Aptitude Test Grader Internal Medicine 11/22/24 Erin Morris MD [address] [place] [address] Scholastic Aptitude Test Grader Cardiology 11/22/24 Roscoe Arias MD [address] [place] [address] Surgeon Cardiac Surg 11/23/24 Kristal Desai MD [address] [address] Endocrinology 01/09/24 Product Scientist Relationship Specialty Start Date End Date Sruthi Ambrosio, RIC.AMBULANCE ATTENDANT [address] [place] [address] PCP - General Primary Care 11/18/23 12/19/24 Roscoe Umanzor MD, PhD [address] [place] [address] PCP - General Internal Medicine 12/20/24 01/09/25 Robyn Taylor APRN.[facility] [address] [place] [address] PCP - General Primary Care 01/10/25 Luz Maria Perez MD Scholastic Aptitude Test Grader Cardiology 10/13/21 11/21/24 Luz Maria Perez MD [address] [place] [address] Referring Cardiology 10/27/21 Abhinav Garrett MD [address] [place] [address] Primary Staff Physician Cardiology 12/30/21 Luz Maria Perez MD [address] [address] Scholastic Aptitude Test Grader Internal Medicine 11/22/24 Erin Morris MD [address] [place] [address] Scholastic Aptitude Test Grader Cardiology 11/22/24 Roscoe Arias MD [address] [place] [address] Surgeon Cardiac Surg 11/23/24 Kristal Desai MD [facility] S [address] [address] Endocrinology 01/09/24 Madison Regan MD [address] [place] [address] [phone] (Work) Orthopedics 01/10/25 Freddy Mujica MD [address] [place] [address] Anesthesiology 01/10/25 13, Pharmacist [address] [place] [address] Pharmacist Pharmacy 01/15/25 Product Scientist Relationship Specialty Start Date End Date Robyn Taylor, COVER OPERATOR.AMBULANCE ATTENDANT [address] [place] [address] PCP - General Primary Care 01/10/25 Luz Maria Perez MD [address] [address] Referring Cardiology 10/27/21 Abhinav Garrett MD [address] [place] [address] Primary Staff Physician Cardiology 12/30/21 Luz Maria Perez MD [address] [address] Scholastic Aptitude Test Grader Internal Medicine 11/22/24 Erin Morris MD [address] [place] [address] Scholastic Aptitude Test Grader Cardiology 11/22/24 Roscoe Arias MD [address] [place] [address] Surgeon Cardiac Surg 11/23/24 Kristal Desai MD [address] [facility] [address] [place] [address] Endocrinology 01/09/24 Madison Regan MD [address] [place] [address] -[phone] (Work) Orthopedics 01/10/25 Freddy Mujica MD [address] [place] [address] Anesthesiology 01/10/25 13, Pharmacist [address] [place] [address] Pharmacist Pharmacy 01/15/25 Product Scientist Relationship Specialty Start Date End Date Robyn Taylor, COVER OPERATOR.AMBULANCE ATTENDANT [address] [place] [address] PCP - General Primary Care 01/10/25 Luz Maria Perez MD [address] [place] [address] Referring Cardiology 10/27/21 Abhinav Garrett MD [address] [place], [place] [address]48295 Primary Staff Physician Cardiology 12/30/21 Luz Maria Perez MD [address] [place] [address] Scholastic Aptitude Test Grader Internal Medicine 11/22/24 Erin Morris MD [address] [place] [address] Scholastic Aptitude Test Grader Cardiology 11/22/24 Roscoe Arias MD [address] [place] [address] Surgeon Cardiac Surg 11/23/24 Kristal Desai MD [address] [address] Endocrinology 01/09/24 Madison Regan MD [address] [place] [address] [phone] (Work) Orthopedics 01/10/25 Freddy Mujica MD [address] [place] [address] Anesthesiology 01/10/25 13, Pharmacist [id number] [place], [place] [phone] Pharmacist Pharmacy 01/15/25 Product Scientist Relationship Specialty Start Date End Date Robyn Taylor, COVER OPERATOR.AMBULANCE ATTENDANT [address] [place] [address] PCP - General Primary Care 01/10/25 Luz Maria Perez MD [address] [address] Referring Cardiology 10/27/21 Abhinav Garrett MD [address] [place] [address] Primary Staff Physician Cardiology 12/30/21 Luz Maria Perez MD [address] [address] Scholastic Aptitude Test Grader Internal Medicine 11/22/24 Erin Morris MD [address] [place] [address] Scholastic Aptitude Test Grader Cardiology 11/22/24 Roscoe Arias MD [address] [place] [address] Surgeon Cardiac Surg 11/23/24 Kristal Desai MD 0 [facility] [address] [place] [address] Endocrinology 01/09/24 Madison Regan MD [address] [place] [address] [id number] (Work) Orthopedics 01/10/25 Ghada Mejía DO [address] [place] [address] Orthopedics 01/30/25 Freddy Mujica MD [address] [place] [address] Anesthesiology 01/10/25 13, Pharmacist [address] [place] [address] Pharmacist Pharmacy 01/15/25 Product Scientist Relationship Specialty Start Date End Date Robyn Taylor, RIC.AMBULANCE ATTENDANT [address] [place] [address] PCP - General Primary Care 01/10/25 Luz Maria Perez MD [address] [address] Referring Cardiology 10/27/21 Abhinav Garrett MD [address] [place] [address] Primary Staff Physician Cardiology 12/30/21 Luz Maria Perez MD [address] [address] Scholastic Aptitude Test Grader Internal Medicine 11/22/24 Erin Morris MD [address] [place] [address] Scholastic Aptitude Test Grader Cardiology 11/22/24 Roscoe Arias MD [address] [place] [address] Surgeon Cardiac Surg 11/23/24 Kristal Desai MD [address] [address] Endocrinology 01/09/24 Madison Regan MD [address] [place] [address] -[phone] (Work) Orthopedics 01/10/25 Ghada Mejía DO [address] [place] [address] Orthopedics 01/30/25 Freddy Mujica MD [address] [place] [address] Anesthesiology 01/10/25 13, Pharmacist [address] [place], [place] [phone] Pharmacist Pharmacy 01/15/25 Product Scientist Relationship Specialty Start Date End Date Robyn Taylor APRN.AMBULANCE ATTENDANT [address] [place] [address] PCP - General Primary Care 01/10/25 Luz Maria Perez MD [address] [address] Referring Cardiology 10/27/21 Abhinav Garrett MD [address] [place] [address] Primary Staff Physician Cardiology 12/30/21 Luz Maria Perez MD [address] [address] [address] Scholastic Aptitude Test Grader Internal Medicine 11/22/24 Erin Morris MD [address] [place] [address] Scholastic Aptitude Test Grader Cardiology 11/22/24 Roscoe Arias MD [address] [place] [address] Surgeon Cardiac Surg 11/23/24 Kristal Desai MD [address] [place] [address] Endocrinology 01/09/24 Madison Regan MD [facility] [place] [address] -[phone] (Work) Orthopedics 01/10/25 Ghada Mejía DO [address] [place] [address] Orthopedics 01/30/25 Freddy Mujica MD [address] [place] [address] [id number] Anesthesiology 01/10/25 13, Pharmacist [address] [place] [address] Pharmacist Pharmacy 01/15/25 Product Scientist Relationship Specialty Start Date End Date Robyn Taylor APRN.AMBULANCE ATTENDANT [address] [place] [address] PCP - General Primary Care 01/10/25 Luz Maria Perez MD [address] [address] Referring Cardiology 10/27/21 Abhinav Garrett MD [address] [place] [address] Primary Staff Physician Cardiology 12/30/21 Luz Maria Perez MD [address] [address] Scholastic Aptitude Test Grader Internal Medicine 11/22/24 Erin Morris MD [address] [place] [address] Scholastic Aptitude Test Grader Cardiology 11/22/24 Roscoe Arias MD [address] [place] [address] Surgeon Cardiac Surg 11/23/24 Kristal Desai MD [facility] S [address] [address] Endocrinology 01/09/24 Madison Regan MD [address]75 [place] [address] -[id number] (Work) Orthopedics 01/10/25 Ghada Mejía DO [address] [place], [place] 730601 Orthopedics 01/30/25 Freddy Mujica MD [address] [place] [address] Anesthesiology 01/10/25 13, Pharmacist [address] [place] [address] Pharmacist Pharmacy 01/15/25 Product Scientist Relationship Specialty Start Date End Date Robyn Taylor, COVER OPERATOR.AMBULANCE ATTENDANT [address] [place] [address] PCP - General Primary Care 01/10/25 Luz Maria Perez MD [address] [address] Referring Cardiology 10/27/21 Abhinav Garrett MD [address] [place] [address] Primary Staff Physician Cardiology 12/30/21 Luz Maria Perez MD [address] [address] Scholastic Aptitude Test Grader Internal Medicine 11/22/24 Erin Morris MD [address] [place] [address] Scholastic Aptitude Test Grader Cardiology 11/22/24 Roscoe Arias MD [address] [place] [address] Surgeon Cardiac Surg 11/23/24 Kristal Desai MD [address] [facility] [address] [place] [address] Endocrinology 01/09/24 Madison Regan MD [address] [place] [address] -[id number] (Work) Orthopedics 01/10/25 Ghada Mejía DO [address] [place] [address] Orthopedics 01/30/25 Freddy Mujica MD [address] [place] [address] Anesthesiology 01/10/25 13, Pharmacist [address] [place] [address] Pharmacist Pharmacy 01/15/25 Product Scientist Relationship Specialty Start Date End Date Renay Garrett MD [address] [place] [address] PCP - General Internal Medicine/Pediatrics 02/27/25 Luz Maria Perez MD [address] [place] [address] Referring Cardiology 10/27/21 Abhinav Garrett MD [address] [place] [address] Primary Staff Physician Cardiology 12/30/21 Luz Maria Perez MD [address] [place] [address] Scholastic Aptitude Test Grader Internal Medicine 11/22/24 Erin Morris MD [address] [place] [address] Scholastic Aptitude Test Grader Cardiology 11/22/24 Roscoe Arias MD [address] [place] [address] Surgeon Cardiac Surg 11/23/24 Kristal Desai MD [address] [place] [address] Endocrinology 01/09/24 Madison Regan MD [address]75 [place] [address] -[id number] (Work) Orthopedics 01/10/25 Ghada Mejía DO 721 [place] [address] Orthopedics 01/30/25 Freddy Mujica MD [address] [place] [address] Anesthesiology 01/10/25 13, Pharmacist [address] [place] [address] Pharmacist Pharmacy 01/15/25 Product Scientist Relationship Specialty Start Date End Date Renay Garrett MD [address] [place] [address] PCP - General Internal Medicine/Pediatrics 02/27/25 Luz Maria Perez MD [address] [address] Referring Cardiology 10/27/21 Abhinav Garrett MD [address] [place] [address] Primary Staff Physician Cardiology 12/30/21 Luz Maria Perez MD [address] [address] Scholastic Aptitude Test Grader Internal Medicine 11/22/24 Erin Morris MD [address] [place] [address] Scholastic Aptitude Test Grader Cardiology 11/22/24 Roscoe Arias MD [address] [place] [address] Surgeon Cardiac Surg 11/23/24 Kristal Desai MD [address] [address] Endocrinology 01/09/24 Madison Regan MD 3975 [place] [address] -[id number] (Work) Orthopedics 01/10/25 hGada Mejía DO [address] [place] [address] Orthopedics 01/30/25 Freddy Mujica MD [address] [place] [address] Anesthesiology 01/10/25 13, Pharmacist [address] [place] [address] Pharmacist Pharmacy 01/15/25 Product Scientist Relationship Specialty Start Date End Date Robyn Taylor APRN.AMBULANCE ATTENDANT [address] [place] [address] PCP - General Primary Care 02/28/25 Luz Maria Perez MD [address] [address] Referring Cardiology 10/27/21 Abhinav Garrett MD [address] [place] [address] Primary Staff Physician Cardiology 12/30/21 Luz Maria Perez MD [address] [address] Scholastic Aptitude Test Grader Internal Medicine 11/22/24 Erin Morris MD [address] [place] [address] Scholastic Aptitude Test Grader Cardiology 11/22/24 Roscoe Arias MD [address] [place] [address] Surgeon Cardiac Surg 11/23/24 Kristal Desai MD [address] [address] Endocrinology 01/09/24 Madison Regan MD 3975 [place] [address] [id number] (Work) Orthopedics 01/10/25 Ghada Mejía DO [address] [place], [place] [id number] Orthopedics 01/30/25 Freddy Mujica MD [address] [place] [address] [id number] Anesthesiology 01/10/25 13, Pharmacist [address] [facility] [place] [address] Pharmacist Pharmacy 01/15/25 Product Scientist Relationship Specialty Start Date End Date Renay Garrett MD [address] [place] [address] PCP - General Internal Medicine/Pediatrics 03/06/25 Luz Maria Perez MD [address] [address] Referring Cardiology 10/27/21 Abhinav Garrett MD [address] [place] [address] Primary Staff Physician Cardiology 12/30/21 Luz Maria Perez MD [address] [address] Scholastic Aptitude Test Grader Internal Medicine 11/22/24 Erin Morris MD [address] [place] [address] Scholastic Aptitude Test Grader Cardiology 11/22/24 Roscoe Arias MD [address] [place] [address] Surgeon Cardiac Surg 11/23/24 Kristal Desai MD [address] [address] Endocrinology 01/09/24 Madison Regan MD 3975 [place] [address] [id number] (Work) Orthopedics 01/10/25 Ghada Mejía DO [address] [place] [address] Orthopedics 01/30/25 Freddy Mujica MD [address] [place] [address] Anesthesiology 01/10/25 13, Pharmacist [address] [place], [place] [phone] Pharmacist Pharmacy 01/15/25 Product Scientist Relationship Specialty Start Date End Date Robyn Taylor COVER OPERATOR.AMBULANCE ATTENDANT [address] [place] [address] PCP - General Primary Care 02/28/25 03/05/25 Luz Maria Perez MD [address] [place] [address] Referring Cardiology 10/27/21 Abhinav Garrett MD [address] [place] [address] Primary Staff Physician Cardiology 12/30/21 Luz Maria Perez MD [address] [place] [address] Scholastic Aptitude Test Grader Internal Medicine 11/22/24 Erin Morris MD [address] [place] [address] Scholastic Aptitude Test Grader Cardiology 11/22/24 Roscoe Arias MD [address] [place] [address] Surgeon Cardiac Surg 11/23/24 Kristal Desai MD 830 [facility] [address] [place] [address] Endocrinology 01/09/24 Madison Regan MD 3975 [place] [address] -[phone] (Work) Orthopedics 01/10/25 Ghada Mejía DO [address] [place] [address] Orthopedics 01/30/25 Freddy Mujica MD [address] [place] [address] Anesthesiology 01/10/25 13, Pharmacist [address] [place], [place] [phone] Pharmacist Pharmacy 01/15/25 Product Scientist Relationship Specialty Start Date End Date Renay Garrett MD [address] [place] [address] PCP - General Internal Medicine/Pediatrics 03/06/25 Luz Maria Perez MD [address] [address] Referring Cardiology 10/27/21 Abhinav Garrett MD [address]00 [place] [address] Primary Staff Physician Cardiology 12/30/21 Luz Maria Perez MD [address] [place] [address] Scholastic Aptitude Test Grader Internal Medicine 11/22/24 Erin Morris MD [address] [place] [address] Scholastic Aptitude Test Grader Cardiology 11/22/24 Roscoe Arias MD [address] [place] [address] Surgeon Cardiac Surg 11/23/24 Kristal Desai MD [address]30 [facility] [address] [place] [address] Endocrinology 01/09/24 Madison Regan MD 3975 [place] [address] -[id number] (Work) Orthopedics 01/10/25 Ghada Mejía DO [address] [place] [address] Orthopedics 01/30/25 Freddy Mujica MD [address] [place] [address] Anesthesiology 01/10/25 13, Pharmacist [address] [place] [address] Pharmacist Pharmacy 01/15/25 Product Scientist Relationship Specialty Start Date End Date Renay Garrett MD [address] [place] [address] PCP - General Internal Medicine/Pediatrics 03/06/25 Luz Maria Perez MD [address] [address] Referring Cardiology 10/27/21 Abhinav Garrett MD [address]00 [place] [address] Primary Staff Physician Cardiology 12/30/21 Luz Maria Perez MD [address] [address] Scholastic Aptitude Test Grader Internal Medicine 11/22/24 Erin Morris MD [address] [place] [address] Scholastic Aptitude Test Grader Cardiology 11/22/24 Roscoe Arias MD [address] [place] [address] Surgeon Cardiac Surg 11/23/24 Kristal Desai MD 830 [facility] 101 [place] [address] Endocrinology 01/09/24 Madison Regan MD 3975 [place] [address] [phone] (Work) Orthopedics 01/10/25 Ghada Mejía DO 721 [place] [address] Orthopedics 01/30/25 Freddy Mujica MD [address] [place] [address] Anesthesiology 01/10/25 13, Pharmacist [address] [place], [place] [phone] Pharmacist Pharmacy 01/15/25 Product Scientist Relationship Specialty Start Date End Date Robyn Taylor APRN.AMBULANCE ATTENDANT [address] [place] [address] PCP - General Primary Care 03/07/25 Luz Maria Perez MD [address] [address] Referring Cardiology 10/27/21 Abhinav Garrett MD [address] [place] [address] Primary Staff Physician Cardiology 12/30/21 Luz Maria Perez MD [address] [address] Scholastic Aptitude Test Grader Internal Medicine 11/22/24 Erin Morris MD 95 [place] [address] Scholastic Aptitude Test Grader Cardiology 11/22/24 Roscoe Arias MD [address] [place] [address] Surgeon Cardiac Surg 11/23/24 Kristal Desai MD [address] [address] Endocrinology 01/09/24 Madison Regan MD 3975 [place] [address] -[phone] (Work) Orthopedics 01/10/25 Ghada Mejía DO [address] [place] [address] Orthopedics 01/30/25 Freddy Mujica MD [address] [place] [address] Anesthesiology 01/10/25 13, Pharmacist [address] [place] [address] Pharmacist Pharmacy 01/15/25 Product Scientist Relationship Specialty Start Date End Date Robyn Taylor, RIC.AMBULANCE ATTENDANT [address] [place] [address] PCP - General Primary Care 03/07/25 Luz Maria Perez MD [address] [place] [address] Referring Cardiology 10/27/21 Abhinav Garrett MD [address] [place], [place] 4905095 Primary Staff Physician Cardiology 12/30/21 Luz Maria Perez MD [address] [address] Scholastic Aptitude Test Grader Internal Medicine 11/22/24 Erin Morris MD [address] [place] [address] Scholastic Aptitude Test Grader Cardiology 11/22/24 Roscoe Arias MD [address]00 [place] [address] Surgeon Cardiac Surg 11/23/24 Kristal Desai MD [address] [address] Endocrinology 01/09/24 Madison Regan MD [address]75 [place] [address] -[id number] (Work) Orthopedics 01/10/25 Ghada Mejía DO [address] [place] [address] Orthopedics 01/30/25 Freddy Mujica MD [address] [place] [address] Anesthesiology 01/10/25 13, Pharmacist [address] [place] [address] Pharmacist Pharmacy 01/15/25 Product Scientist Relationship Specialty Start Date End Date Robyn Taylor, COVER OPERATOR.AMBULANCE ATTENDANT [address] [place] [address] PCP - General Primary Care 03/07/25 Luz Maria Perez MD [address] [address] Referring Cardiology 10/27/21 Abhinav Garrett MD [address] [place] [address] Primary Staff Physician Cardiology 12/30/21 Luz Maria Perez MD [address] [address] Scholastic Aptitude Test Grader Internal Medicine 11/22/24 Erin Morris MD [address] [place] [address] Scholastic Aptitude Test Grader Cardiology 11/22/24 Roscoe Arias MD [address] [place] [address] Surgeon Cardiac Surg 11/23/24 Kristal Desai MD [address] [place] [address] Endocrinology 01/09/24 Madison Regan MD 3975 [place] [address] -[id number] (Work) Orthopedics 01/10/25 Ghada Mejía DO [address] [place] [address] Orthopedics 01/30/25 Freddy Mujica MD [address] [place] [address] Anesthesiology 01/10/25 13, Pharmacist [address] [place] [address] Pharmacist Pharmacy 01/15/25 Team Status: Active Member [...] March 15, 2025 End: March 15, 2025 Product Scientist Relationship Specialty Start Date End Date Roscoe Umanzor MD [address] [place] [address] PCP - General Internal Medicine 05/14/24 Roscoe Umanzor MD [address] [place] [address] Referring Physician Internal Medicine 05/14/24 Product Scientist Relationship Specialty Start Date End Date Roscoe Umanzor MD [address] [place] [address] PCP - General Internal Medicine 05/14/24 Roscoe Umanzor MD [address] [place] [address] Referring Physician Internal Medicine 05/14/24 Product Scientist Relationship Specialty Start Date End Date Robyn Taylor APRN.AMBULANCE ATTENDANT [address] [place] [address] PCP - General Primary Care 03/07/25 LuzM aria Perez MD [address] [place] [address] Referring Cardiology 10/27/21 Abhinav Garrett MD [address] [place] [address] Primary Staff Physician Cardiology 12/30/21 Luz Maria Perez MD [address] [place] [address] Scholastic Aptitude Test Grader Internal Medicine 11/22/24 Erin Morris MD [address] [place] [address] Scholastic Aptitude Test Grader Cardiology 11/22/24 Roscoe Arias MD [address] [place] [address] Surgeon Cardiac Surg 11/23/24 Kristal Desai MD 0 [facility] [address] [place] [address] Endocrinology 01/09/24 Madison Regan MD [address]75 [place] [address] [phone] (Work) Orthopedics 01/10/25 Ghada Mejía DO [address] [place] [address] Orthopedics 01/30/25 MonroeFreddy MD [address] [place] [address] Anesthesiology 01/10/25 13, Pharmacist [address] [place], [place] [phone] Pharmacist Pharmacy 01/15/25 Product Scientist Relationship Specialty Start Date End Date Robyn Taylor APRN.AMBULANCE ATTENDANT [address] [place] [address] PCP - General Primary Care 03/07/25 Luz Maria Perez MD [address] [address] Referring Cardiology 10/27/21 Abhinav Garrett MD [address] [place] [address] Primary Staff Physician Cardiology 12/30/21 Luz Maria Perez MD [address] [address] Scholastic Aptitude Test Grader Internal Medicine 11/22/24 Erin Morris MD 95 [place] [address] Scholastic Aptitude Test Grader Cardiology 11/22/24 Roscoe Arias MD [address] [place] [address] Surgeon Cardiac Surg 11/23/24 Kristal Desai MD [address] [address] Endocrinology 01/09/24 Madison Regan MD [address]75 [place] [address] -[id number] (Work) Orthopedics 01/10/25 Ghada Mejía DO 721 [place] [address] Orthopedics 01/30/25 Freddy Mujica MD [address] [place] [address] Anesthesiology 01/10/25 13, Pharmacist [address] [place], [place] [phone] Pharmacist Pharmacy 01/15/25 Product Scientist Relationship Specialty Start Date End Date Robyn Taylor APRN.AMBULANCE ATTENDANT [address] [place] [address] PCP - General Primary Care 03/07/25 Luz Maria Perez MD [address] [address] Referring Cardiology 10/27/21 Abhinav Garrett MD [address] [place] [address] Primary Staff Physician Cardiology 12/30/21 Luz Maria Perez MD [address] [address] Scholastic Aptitude Test Grader Internal Medicine 11/22/24 Erin Morris MD [address] [place] [address] Scholastic Aptitude Test Grader Cardiology 11/22/24 Roscoe Arias MD [address] [place] [address] Surgeon Cardiac Surg 11/23/24 Kristal Desai MD [address] [address] Endocrinology 01/09/24 Madison Regan MD [address]75 [place] [address] -[phone] (Work) Orthopedics 01/10/25 Ghada Mejía DO [address] [place] [address] Orthopedics 01/30/25 Freddy Mujica MD [address] [place] [address] Anesthesiology 01/10/25 13, Pharmacist [address] [place], [place] [phone] Pharmacist Pharmacy 01/15/25 Product Scientist Relationship Specialty Start Date End Date Robyn Taylor APRN.AMBULANCE ATTENDANT [address] [place] [address] PCP - General Primary Care 01/10/25 02/26/25 Renay Garrett MD [address] [place], [place] 063361 PCP - General Internal Medicine/Pediatrics 02/27/25 02/27/25 Robyn Taylor APRN.AMBULANCE ATTENDANT [address] [place] [address] PCP - General Primary Care 02/28/25 03/05/25 Renay Garrett MD [address] [place], [place] 547611 PCP - General Internal Medicine/Pediatrics 03/06/25 03/06/25 Robyn Taylor APRN.AMBULANCE ATTENDANT [address] [place] [address] PCP - General Primary Care 03/07/25 Luz Maria Perez MD [address] [address] Referring Cardiology 10/27/21 Abhniav Garrett MD [address] [place] [address] Primary Staff Physician Cardiology 12/30/21 Luz Maria Perez MD [address] [address] Scholastic Aptitude Test Grader Internal Medicine 11/22/24 Erin Morris MD [address] [place] [address] Scholastic Aptitude Test Grader Cardiology 11/22/24 Roscoe Arias MD [address] [place] [address] Surgeon Cardiac Surg 11/23/24 Kristal Desai MD [address] [place] [address] Endocrinology 01/09/24 Madison Regan MD [address] [place] [address] -[id number] (Work) Orthopedics 01/10/25 Ghada Mejía DO [address] [place] [address] Orthopedics 01/30/25 Freddy Mujica MD [address] [place] [address] Anesthesiology 01/10/25 13, Pharmacist [address] [place], [place] 9491911 Pharmacist Pharmacy 01/15/25 Product Scientist Relationship Specialty Start Date End Date Robyn Taylor APRN.AMBULANCE ATTENDANT [address] [place] [address] PCP - General Primary Care 03/07/25 Luz Maria Perez MD [address] [address] Referring Cardiology 10/27/21 Abhinav Garrett MD [address] [place] [address] Primary Staff Physician Cardiology 12/30/21 Luz Maria Perez MD [address] [address] Scholastic Aptitude Test Grader Internal Medicine 11/22/24 Erin Morris MD [address] [place] [address] Scholastic Aptitude Test Grader Cardiology 11/22/24 Roscoe Arias MD [address] [place] [address] Surgeon Cardiac Surg 11/23/24 Kristal Desai MD [address] [address] Endocrinology 01/09/24 Madison Regan MD 3975 [place] [address] -[id number] (Work) Orthopedics 01/10/25 Ghada Mejía DO 721 [place] [address] Orthopedics 01/30/25 Freddy Mujica MD [address] [place] [address] Anesthesiology 01/10/25 13, Pharmacist [address] [place] [address] Pharmacist Pharmacy 01/15/25 Product Scientist Relationship Specialty Start Date End Date Robyn Taylor, COVER OPERATOR.AMBULANCE ATTENDANT [address] [facility] [place] [address] PCP - General Primary Care 03/07/25 Luz Maria Perez MD [address] [place] [address] Referring Cardiology 10/27/21 Abhinav Garrett MD [address] [place], [place] 8280695 Primary Staff Physician Cardiology 12/30/21 Luz Maria Perez MD [address] [address] Scholastic Aptitude Test Grader Internal Medicine 11/22/24 Erin Morris MD 95 [place] [address] Scholastic Aptitude Test Grader Cardiology 11/22/24 Roscoe Arias MD [address] [place] [address] Surgeon Cardiac Surg 11/23/24 Kristal Desai MD [address] [place] [address] Endocrinology 01/09/24 Madison Regan MD [address]75 [place] [address] -[phone] (Work) Orthopedics 01/10/25 Ghada Mejía DO [address] [place] [address] Orthopedics 01/30/25 Freddy Mujica MD [address] [place] [address] Anesthesiology 01/10/25 13, Pharmacist [address] [place] [address] Pharmacist Pharmacy 01/15/25 Team Status: Inactive Member Role/Relationship Status Dates ERNA AMBRIZ Primary Care Provider Active Star t: February 05, 2025 End: February 05, 2025 Dr. Freddy Mujica MD Attending Provider Active Start: February 05, 2025 End: February 05, 2025 Dr. Freddy Mujica MD Referring Provider Active Start: February 05, 2025 End: February 05, 2025 Product Scientist Relationship Specialty Start Date End Date Robyn Taylor, RIC.AMBULANCE ATTENDANT [address] [place] [address] PCP - General Primary Care 03/07/25 Luz Maria Perez MD [address] [address] Referring Cardiology 10/27/21 Abhinav Garrett MD [address] [place], [place] 4678695 Primary Staff Physician Cardiology 12/30/21 Luz Maria Perez MD [address] [address] Scholastic Aptitude Test Grader Internal Medicine 11/22/24 Erin Morris MD [address] [place] [address] Scholastic Aptitude Test Grader Cardiology 11/22/24 Roscoe Arias MD [address] [place] [address] Surgeon Cardiac Surg 11/23/24 Kristal Desai MD [address] [facility] [address] [place] [address] Endocrinology 01/09/24 Madison Regan MD [address] [place] [address] -[id number] (Work) Orthopedics 01/10/25 Ghada Mejía DO [address] [place] [address] Orthopedics 01/30/25 Freddy Mujica MD [address] [place] [address] Anesthesiology 01/10/25 13, Pharmacist [address] [place] [address] Pharmacist Pharmacy 01/15/25 Scheduled Active and Recently [...] dose 1733 (New Bag - Prov ider: JONY Moses)1833 (Stopped - Provider: Itzel Jordan RN) sodium [...] (New Bag - Prov ider: Itzel Jordan RN)2004 (Stopped - Provider: Lulu Franklin RN) Source Comments (unrecognize d section and content) In the event this informatio n is protected by the Federal Confidentiality of Alcohol and Drug Abuse Patient Records regulations: The Federal rules restrict any use of the information to criminally investigate or prosecute any alcohol or drug abuse patient.[facility] CenterIn the event this information is protected by the Federal Confidentiality of Alcohol and Drug Abuse Patient Records regulations: The Federal rules restrict any use of the information to criminally investigate or prosecute any alcohol or drug abuse patient.[facility] CenterIn the event this information is protected by the Federal Confidentiality of Alcohol and Drug Abuse Patient Records regulations: The Federal rules restrict any use of the information to criminally investigate or prosecute any alcohol or drug abuse patient.[facility] CenterIn the event this information is protected by the Federal Confidentiality of Alcohol and Drug Abuse Patient Records regulations: The Federal rules restrict any use of the information to criminally investigate or prosecute any alcohol or drug abuse patient.[facility] CenterIn the event this information is protected by the Federal Confidentiality of Alcohol and Drug Abuse Patient Records regulations: The Federal rules restrict any use of the information to criminally investigate or prosecute any alcohol or drug abuse patient.[facility] CenterIn the event this information is protected by the Federal Confidentiality of Alcohol and Drug Abuse Patient Records regulations: The Federal rules restrict any use of the information to criminally investigate or prosecute any alcohol or drug abuse patient.[facility] CenterIn the event this information is protected by the Federal Confidentiality of Alcohol and Drug Abuse Patient Records regulations: The Federal rules restrict any use of the information to criminally investigate or prosecute any alcohol or drug abuse patient.[facility] CenterIn the event this information is protected by the Federal Confidentiality of Alcohol and Drug Abuse Patient Records regulations: The Federal rules restrict any use of the information to criminally investigate or prosecute any alcohol or drug abuse patient.[facility] CenterIn the event this information is protected by the Federal Confidentiality of Alcohol and Drug Abuse Patient Records regulations: The Federal rules restrict any use of the information to criminally investigate or prosecute any alcohol or drug abuse patient.[facility] CenterIn the event this information is protected by the Federal Confidentiality of Alcohol and Drug Abuse Patient Records regulations: The Federal rules restrict any use of the information to criminally investigate or prosecute any alcohol or drug abuse patient.[facility] CenterIn the event this information is protected by the Federal Confidentiality of Alcohol and Drug Abuse Patient Records regulations: The Federal rules restrict any use of the information to criminally investigate or prosecute any alcohol or drug abuse patient.[facility] CenterIn the event this information is protected by the Federal Confidentiality of Alcohol and Drug Abuse Patient Records regulations: The Federal rules restrict any use of the information to criminally investigate or prosecute any alcohol or drug abuse patient.[facility] CenterIn the event this information is protected by the Federal Confidentiality of Alcohol and Drug Abuse Patient Records regulations: The Federal rules restrict any use of the information to criminally investigate or prosecute any alcohol or drug abuse patient.[facility] CenterIn the event this information is protected by the Federal Confidentiality of Alcohol and Drug Abuse Patient Records regulations: The Federal rules restrict any use of the information to criminally investigate or prosecute any alcohol or drug abuse patient.[facility] CenterIn the event this information is protected by the Federal Confidentiality of Alcohol and Drug Abuse Patient Records regulations: The Federal rules restrict any use of the information to criminally investigate or prosecute any alcohol or drug abuse patient.[facility] CenterIn the event this information is protected by the Federal Confidentiality of Alcohol and Drug Abuse Patient Records regulations: The Federal rules restrict any use of the information to criminally investigate or prosecute any alcohol or drug abuse patient.[facility] CenterIn the event this information is protected by the Federal Confidentiality of Alcohol and Drug Abuse Patient Records regulations: The Federal rules restrict any use of the information to criminally investigate or prosecute any alcohol or drug abuse patient.[facility] CenterIn the event this information is protected by the Federal Confidentiality of Alcohol and Drug Abuse Patient Records regulations: The Federal rules restrict any use of the information to criminally investigate or prosecute any alcohol or drug abuse patient.[facility] CenterIn the event this information is protected by the Federal Confidentiality of Alcohol and Drug Abuse Patient Records regulations: The Federal rules restrict any use of the information to criminally investigate or prosecute any alcohol or drug abuse patient.[facility] CenterIn the event this information is protected by the Federal Confidentiality of Alcohol and Drug Abuse Patient Records regulations: The Federal rules restrict any use of the information to criminally investigate or prosecute any alcohol or drug abuse patient.[facility] CenterIn the event this information is protected by the Federal Confidentiality of Alcohol and Drug Abuse Patient Records regulations: The Federal rules restrict any use of the information to criminally investigate or prosecute any alcohol or drug abuse patient.[facility] CenterIn the event this information is protected by the Federal Confidentiality of Alcohol and Drug Abuse Patient Records regulations: The Federal rules restrict any use of the information to criminally investigate or prosecute any alcohol or drug abuse patient.[facility] CenterIn the event this information is protected by the Federal Confidentiality of Alcohol and Drug Abuse Patient Records regulations: The Federal rules restrict any use of the information to criminally investigate or prosecute any alcohol or drug abuse patient.[facility] CenterIn the event this information is protected by the Federal Confidentiality of Alcohol and Drug Abuse Patient Records regulations: The Federal rules restrict any use of the information to criminally investigate or prosecute any alcohol or drug abuse patient.[facility] CenterIn the event this information is protected by the Federal Confidentiality of Alcohol and Drug Abuse Patient Records regulations: The Federal rules restrict any use of the information to criminally investigate or prosecute any alcohol or drug abuse patient.[facility] CenterIn the event this information is protected by the Federal Confidentiality of Alcohol and Drug Abuse Patient Records regulations: The Federal rules restrict any use of the information to criminally investigate or prosecute any alcohol or drug abuse patient.[facility] CenterIn the event this information is protected by the Federal Confidentiality of Alcohol and Drug Abuse Patient Records regulations: The Federal rules restrict any use of the information to criminally investigate or prosecute any alcohol or drug abuse patient.[facility] CenterIn the event this information is protected by the Federal Confidentiality of Alcohol and Drug Abuse Patient Records regulations: The Federal rules restrict any use of the information to criminally investigate or prosecute any alcohol or drug abuse patient.[facility] CenterIn the event this information is protected by the Federal Confidentiality of Alcohol and Drug Abuse Patient Records regulations: The Federal rules restrict any use of the information to criminally investigate or prosecute any alcohol or drug abuse patient.[facility] CenterIn the event this information is protected by the Federal Confidentiality of Alcohol and Drug Abuse Patient Records regulations: The Federal rules restrict any use of the information to criminally investigate or prosecute any alcohol or drug abuse patient.[facility] CenterIn the event this information is protected by the Federal Confidentiality of Alcohol and Drug Abuse Patient Records regulations: The Federal rules restrict any use of the information to criminally investigate or prosecute any alcohol or drug abuse patient.[facility] CenterIn the event this information is protected by the Federal Confidentiality of Alcohol and Drug Abuse Patient Records regulations: The Federal rules restrict any use of the information to criminally investigate or prosecute any alcohol or drug abuse patient.[facility] CenterIn the event this information is protected by the Federal Confidentiality of Alcohol and Drug Abuse Patient Records regulations: The Federal rules restrict any use of the information to criminally investigate or prosecute any alcohol or drug abuse patient.[facility] CenterIn the event this information is protected by the Federal Confidentiality of Alcohol and Drug Abuse Patient Records regulations: The Federal rules restrict any use of the information to criminally investigate or prosecute any alcohol or drug abuse patient.[facility] CenterIn the event this information is protected by the Federal Confidentiality of Alcohol and Drug Abuse Patient Records regulations: The Federal rules restrict any use of the information to criminally investigate or prosecute any alcohol or drug abuse patient.[facility] CenterIn the event this information is protected by the Federal Confidentiality of Alcohol and Drug Abuse Patient Records regulations: The Federal rules restrict any use of the information to criminally investigate or prosecute any alcohol or drug abuse patient.[facility] CenterIn the event this information is protected by the Federal Confidentiality of Alcohol and Drug Abuse Patient Records regulations: The Federal rules restrict any use of the information to criminally investigate or prosecute any alcohol or drug abuse patient.[facility] CenterIn the event this information is protected by the Federal Confidentiality of Alcohol and Drug Abuse Patient Records regulations: The Federal rules restrict any use of the information to criminally investigate or prosecute any alcohol or drug abuse patient.[facility] CenterIn the event this information is protected by the Federal Confidentiality of Alcohol and Drug Abuse Patient Records regulations: The Federal rules restrict any use of the information to criminally investigate or prosecute any alcohol or drug abuse patient.[facility] CenterIn the event this information is protected by the Federal Confidentiality of Alcohol and Drug Abuse Patient Records regulations: The Federal rules restrict any use of the information to criminally investigate or prosecute any alcohol or drug abuse patient.[facility] CenterIn the event this information is protected by the Federal Confidentiality of Alcohol and Drug Abuse Patient Records regulations: The Federal rules restrict any use of the information to criminally investigate or prosecute any alcohol or drug abuse patient.[facility] CenterIn the event this information is protected by the Federal Confidentiality of Alcohol and Drug Abuse Patient Records regulations: The Federal rules restrict any use of the information to criminally investigate or prosecute any alcohol or drug abuse patient.[facility] CenterIn the event this information is protected by the Federal Confidentiality of Alcohol and Drug Abuse Patient Records regulations: The Federal rules restrict any use of the information to criminally investigate or prosecute any alcohol or drug abuse patient.[facility] CenterIn the event this information is protected by the Federal Confidentiality of Alcohol and Drug Abuse Patient Records regulations: The Federal rules restrict any use of the information to criminally investigate or prosecute any alcohol or drug abuse patient.[facility] CenterIn the event this information is protected by the Federal Confidentiality of Alcohol and Drug Abuse Patient Records regulations: The Federal rules restrict any use of the information to criminally investigate or prosecute any alcohol or drug abuse patient.[facility] CenterIn the event this information is protected by the Federal Confidentiality of Alcohol and Drug Abuse Patient Records regulations: The Federal rules restrict any use of the information to criminally investigate or prosecute any alcohol or drug abuse patient.[facility] CenterIn the event this information is protected by the Federal Confidentiality of Alcohol and Drug Abuse Patient Records regulations: The Federal rules restrict any use of the information to criminally investigate or prosecute any alcohol or drug abuse patient.[facility] CenterIn the event this information is protected by the Federal Confidentiality of Alcohol and Drug Abuse Patient Records regulations: The Federal rules restrict any use of the information to criminally investigate or prosecute any alcohol or drug abuse patient.[facility] CenterIn the event this information is protected by the Federal Confidentiality of Alcohol and Drug Abuse Patient Records regulations: The Federal rules restrict any use of the information to criminally investigate or prosecute any alcohol or drug abuse patient.[facility] CenterIn the event this information is protected by the Federal Confidentiality of Alcohol and Drug Abuse Patient Records regulations: The Federal rules restrict any use of the information to criminally investigate or prosecute any alcohol or drug abuse patient.[facility] CenterIn the event this information is protected by the Federal Confidentiality of Alcohol and Drug Abuse Patient Records regulations: The Federal rules restrict any use of the information to criminally investigate or prosecute any alcohol or drug abuse patient.[facility] CenterIn the event this information is protected by the Federal Confidentiality of Alcohol and Drug Abuse Patient Records regulations: The Federal rules restrict any use of the information to criminally investigate or prosecute any alcohol or drug abuse patient.[facility] CenterIn the event this information is protected by the Federal Confidentiality of Alcohol and Drug Abuse Patient Records regulations: The Federal rules restrict any use of the information to criminally investigate or prosecute any alcohol or drug abuse patient.[facility] CenterIn the event this information is protected by the Federal Confidentiality of Alcohol and Drug Abuse Patient Records regulations: The Federal rules restrict any use of the information to criminally investigate or prosecute any alcohol or drug abuse patient.[facility] CenterIn the event this information is protected by the Federal Confidentiality of Alcohol and Drug Abuse Patient Records regulations: The Federal rules restrict any use of the information to criminally investigate or prosecute any alcohol or drug abuse patient.[facility] CenterIn the event this information is protected by the Federal Confidentiality of Alcohol and Drug Abuse Patient Records regulations: The Federal rules restrict any use of the information to criminally investigate or prosecute any alcohol or drug abuse patient.[facility] CenterIn the event this information is protected by the Federal Confidentiality of Alcohol and Drug Abuse Patient Records regulations: The Federal rules restrict any use of the information to criminally investigate or prosecute any alcohol or drug abuse patient.[facility] CenterIn the event this information is protected by the Federal Confidentiality of Alcohol and Drug Abuse Patient Records regulations: The Federal rules restrict any use of the information to criminally investigate or prosecute any alcohol or drug abuse patient.[facility] CenterIn the event this information is protected by the Federal Confidentiality of Alcohol and Drug Abuse Patient Records regulations: The Federal rules restrict any use of the information to criminally investigate or prosecute any alcohol or drug abuse patient.[facility] CenterIn the event this information is protected by the Federal Confidentiality of Alcohol and Drug Abuse Patient Records regulations: The Federal rules restrict any use of the information to criminally investigate or prosecute any alcohol or drug abuse patient.[facility] CenterIn the event this information is protected by the Federal Confidentiality of Alcohol and Drug Abuse Patient Records regulations: The Federal rules restrict any use of the information to criminally investigate or prosecute any alcohol or drug abuse patient.[facility] CenterIn the event this information is protected by the Federal Confidentiality of Alcohol and Drug Abuse Patient Records regulations: The Federal rules restrict any use of the information to criminally investigate or prosecute any alcohol or drug abuse patient.[facility] CenterIn the event this information is protected by the Federal Confidentiality of Alcohol and Drug Abuse Patient Records regulations: The Federal rules restrict any use of the information to criminally investigate or prosecute any alcohol or drug abuse patient.[facility] CenterIn the event this information is protected by the Federal Confidentiality of Alcohol and Drug Abuse Patient Records regulations: The Federal rules restrict any use of the information to criminally investigate or prosecute any alcohol or drug abuse patient.[facility] CenterIn the event this information is protected by the Federal Confidentiality of Alcohol and Drug Abuse Patient Records regulations: The Federal rules restrict any use of the information to criminally investigate or prosecute any alcohol or drug abuse patient.[facility] CenterIn the event this information is protected by the Federal Confidentiality of Alcohol and Drug Abuse Patient Records regulations: The Federal rules restrict any use of the information to criminally investigate or prosecute any alcohol or drug abuse patient.[facility] CenterIn the event this information is protected by the Federal Confidentiality of Alcohol and Drug Abuse Patient Records regulations: The Federal rules restrict any use of the information to criminally investigate or prosecute any alcohol or drug abuse patient.[facility] CenterIn the event this information is protected by the Federal Confidentiality of Alcohol and Drug Abuse Patient Records regulations: The Federal rules restrict any use of the information to criminally investigate or prosecute any alcohol or drug abuse patient.[facility] CenterIn the event this information is protected by the Federal Confidentiality of Alcohol and Drug Abuse Patient Records regulations: The Federal rules restrict any use of the information to criminally investigate or prosecute any alcohol or drug abuse patient.[facility] CenterIn the event this information is protected by the Federal Confidentiality of Alcohol and Drug Abuse Patient Records regulations: The Federal rules restrict any use of the information to criminally investigate or prosecute any alcohol or drug abuse patient.[facility] CenterIn the event this information is protected by the Federal Confidentiality of Alcohol and Drug Abuse Patient Records regulations: The Federal rules restrict any use of the information to criminally investigate or prosecute any alcohol or drug abuse patient.[facility] CenterIn the event this information is protected by the Federal Confidentiality of Alcohol and Drug Abuse Patient Records regulations: The Federal rules restrict any use of the information to criminally investigate or prosecute any alcohol or drug abuse patient.[facility] CenterIn the event this information is protected by the Federal Confidentiality of Alcohol and Drug Abuse Patient Records regulations: The Federal rules restrict any use of the information to criminally investigate or prosecute any alcohol or drug abuse patient.[facility] CenterIn the event this information is protected by the Federal Confidentiality of Alcohol and Drug Abuse Patient Records regulations: The Federal rules restrict any use of the information to criminally investigate or prosecute any alcohol or drug abuse patient.[facility] CenterIn the event this information is protected by the Federal Confidentiality of Alcohol and Drug Abuse Patient Records regulations: The Federal rules restrict any use of the information to criminally investigate or prosecute any alcohol or drug abuse patient.[facility] CenterIn the event this information is protected by the Federal Confidentiality of Alcohol and Drug Abuse Patient Records regulations: The Federal rules restrict any use of the information to criminally investigate or prosecute any alcohol or drug abuse patient.[facility] CenterIn the event this information is protected by the Federal Confidentiality of Alcohol and Drug Abuse Patient Records regulations: The Federal rules restrict any use of the information to criminally investigate or prosecute any alcohol or drug abuse patient.[facility] CenterIn the event this information is protected by the Federal Confidentiality of Alcohol and Drug Abuse Patient Records regulations: The Federal rules restrict any use of the information to criminally investigate or prosecute any alcohol or drug abuse patient.[facility] CenterIn the event this information is protected by the Federal Confidentiality of Alcohol and Drug Abuse Patient Records regulations: The Federal rules restrict any use of the information to criminally investigate or prosecute any alcohol or drug abuse patient.[facility] CenterIn the event this information is protected by the Federal Confidentiality of Alcohol and Drug Abuse Patient Records regulations: The Federal rules restrict any use of the information to criminally investigate or prosecute any alcohol or drug abuse patient.[facility] CenterIn the event this information is protected by the Federal Confidentiality of Alcohol and Drug Abuse Patient Records regulations: The Federal rules restrict any use of the information to criminally investigate or prosecute any alcohol or drug abuse patient.[facility] CenterIn the event this information is protected by the Federal Confidentiality of Alcohol and Drug Abuse Patient Records regulations: The Federal rules restrict any use of the information to criminally investigate or prosecute any alcohol or drug abuse patient.[facility] CenterIn the event this information is protected by the Federal Confidentiality of Alcohol and Drug Abuse Patient Records regulations: The Federal rules restrict any use of the information to criminally investigate or prosecute any alcohol or drug abuse patient.[facility] CenterIn the event this information is protected by the Federal Confidentiality of Alcohol and Drug Abuse Patient Records regulations: The Federal rules restrict any use of the information to criminally investigate or prosecute any alcohol or drug abuse patient.[facility] CenterIn the event this information is protected by the Federal Confidentiality of Alcohol and Drug Abuse Patient Records regulations: The Federal rules restrict any use of the information to criminally investigate or prosecute any alcohol or drug abuse patient.[facility] CenterIn the event this information is protected by the Federal Confidentiality of Alcohol and Drug Abuse Patient Records regulations: The Federal rules restrict any use of the information to criminally investigate or prosecute any alcohol or drug abuse patient.[facility] CenterIn the event this information is protected by the Federal Confidentiality of Alcohol and Drug Abuse Patient Records regulations: The Federal rules restrict any use of the information to criminally investigate or prosecute any alcohol or drug abuse patient.[facility] CenterIn the event this information is protected by the Federal Confidentiality of Alcohol and Drug Abuse Patient Records regulations: The Federal rules restrict any use of the information to criminally investigate or prosecute any alcohol or drug abuse patient.[facility] CenterIn the event this information is protected by the Federal Confidentiality of Alcohol and Drug Abuse Patient Records regulations: The Federal rules restrict any use of the information to criminally investigate or prosecute any alcohol or drug abuse patient.[facility] CenterIn the event this information is protected by the Federal Confidentiality of Alcohol and Drug Abuse Patient Records regulations: The Federal rules restrict any use of the information to criminally investigate or prosecute any alcohol or drug abuse patient.[facility] CenterIn the event this information is protected by the Federal Confidentiality of Alcohol and Drug Abuse Patient Records regulations: The Federal rules restrict any use of the information to criminally investigate or prosecute any alcohol or drug abuse patient.[facility] CenterIn the event this information is protected by the Federal Confidentiality of Alcohol and Drug Abuse Patient Records regulations: The Federal rules restrict any use of the information to criminally investigate or prosecute any alcohol or drug abuse patient.[facility] CenterIn the event this information is protected by the Federal Confidentiality of Alcohol and Drug Abuse Patient Records regulations: The Federal rules restrict any use of the information to criminally investigate or prosecute any alcohol or drug abuse patient.[facility] CenterIn the event this information is protected by the Federal Confidentiality of Alcohol and Drug Abuse Patient Records regulations: The Federal rules restrict any use of the information to criminally investigate or prosecute any alcohol or drug abuse patient.[facility] CenterIn the event this information is protected by the Federal Confidentiality of Alcohol and Drug Abuse Patient Records regulations: The Federal rules restrict any use of the information to criminally investigate or prosecute any alcohol or drug abuse patient.[facility] CenterIn the event this information is protected by the Federal Confidentiality of Alcohol and Drug Abuse Patient Records regulations: The Federal rules restrict any use of the information to criminally investigate or prosecute any alcohol or drug abuse patient.[facility] CenterIn the event this information is protected by the Federal Confidentiality of Alcohol and Drug Abuse Patient Records regulations: The Federal rules restrict any use of the information to criminally investigate or prosecute any alcohol or drug abuse patient.[facility] CenterIn the event this information is protected by the Federal Confidentiality of Alcohol and Drug Abuse Patient Records regulations: The Federal rules restrict any use of the information to criminally investigate or prosecute any alcohol or drug abuse patient.[facility] CenterIn the event this information is protected by the Federal Confidentiality of Alcohol and Drug Abuse Patient Records regulations: The Federal rules restrict any use of the information to criminally investigate or prosecute any alcohol or drug abuse patient.[facility] CenterIn the event this information is protected by the Federal Confidentiality of Alcohol and Drug Abuse Patient Records regulations: The Federal rules restrict any use of the information to criminally investigate or prosecute any alcohol or drug abuse patient.[facility] CenterIn the event this information is protected by the Federal Confidentiality of Alcohol and Drug Abuse Patient Records regulations: The Federal rules restrict any use of the information to criminally investigate or prosecute any alcohol or drug abuse patient.[facility] CenterIn the event this information is protected by the Federal Confidentiality of Alcohol and Drug Abuse Patient Records regulations: The Federal rules restrict any use of the information to criminally investigate or prosecute any alcohol or drug abuse patient.[facility] CenterIn the event this information is protected by the Federal Confidentiality of Alcohol and Drug Abuse Patient Records regulations: The Federal rules restrict any use of the information to criminally investigate or prosecute any alcohol or drug abuse patient.[facility] CenterIn the event this information is protected by the Federal Confidentiality of Alcohol and Drug Abuse Patient Records regulations: The Federal rules restrict any use of the information to criminally investigate or prosecute any alcohol or drug abuse patient.[facility] CenterIn the event this information is protected by the Federal Confidentiality of Alcohol and Drug Abuse Patient Records regulations: The Federal rules restrict any use of the information to criminally investigate or prosecute any alcohol or drug abuse patient.[facility] CenterIn the event this information is protected by the Federal Confidentiality of Alcohol and Drug Abuse Patient Records regulations: The Federal rules restrict any use of the information to criminally investigate or prosecute any alcohol or drug abuse patient.[facility] CenterIn the event this information is protected by the Federal Confidentiality of Alcohol and Drug Abuse Patient Records regulations: The Federal rules restrict any use of the information to criminally investigate or prosecute any alcohol or drug abuse patient.[facility] CenterIn the event this information is protected by the Federal Confidentiality of Alcohol and Drug Abuse Patient Records regulations: The Federal rules restrict any use of the information to criminally investigate or prosecute any alcohol or drug abuse patient.[facility] CenterIn the event this information is protected by the Federal Confidentiality of Alcohol and Drug Abuse Patient Records regulations: The Federal rules restrict any use of the information to criminally investigate or prosecute any alcohol or drug abuse patient.[facility] CenterIn the event this information is protected by the Federal Confidentiality of Alcohol and Drug Abuse Patient Records regulations: The Federal rules restrict any use of the information to criminally investigate or prosecute any alcohol or drug abuse patient.[facility] CenterIn the event this information is protected by the Federal Confidentiality of Alcohol and Drug Abuse Patient Records regulations: The Federal rules restrict any use of the information to criminally investigate or prosecute any alcohol or drug abuse patient.[facility] CenterIn the event this information is protected by the Federal Confidentiality of Alcohol and Drug Abuse Patient Records regulations: The Federal rules restrict any use of the information to criminally investigate or prosecute any alcohol or drug abuse patient.[facility] CenterIn the event this information is protected by the Federal Confidentiality of Alcohol and Drug Abuse Patient Records regulations: The Federal rules restrict any use of the information to criminally investigate or prosecute any alcohol or drug abuse patient.[facility] CenterIn the event this information is protected by the Federal Confidentiality of Alcohol and Drug Abuse Patient Records regulations: The Federal rules restrict any use of the information to criminally investigate or prosecute any alcohol or drug abuse patient.[facility] CenterIn the event this information is protected by the Federal Confidentiality of Alcohol and Drug Abuse Patient Records regulations: The Federal rules restrict any use of the information to criminally investigate or prosecute any alcohol or drug abuse patient.[facility] CenterIn the event this information is protected by the Federal Confidentiality of Alcohol and Drug Abuse Patient Records regulations: The Federal rules restrict any use of the information to criminally investigate or prosecute any alcohol or drug abuse patient.[facility] CenterIn the event this information is protected by the Federal Confidentiality of Alcohol and Drug Abuse Patient Records regulations: The Federal rules restrict any use of the information to criminally investigate or prosecute any alcohol or drug abuse patient.[facility] CenterIn the event this information is protected by the Federal Confidentiality of Alcohol and Drug Abuse Patient Records regulations: The Federal rules restrict any use of the information to criminally investigate or prosecute any alcohol or drug abuse patient.[facility] CenterIn the event this information is protected by the Federal Confidentiality of Alcohol and Drug Abuse Patient Records regulations: The Federal rules restrict any use of the information to criminally investigate or prosecute any alcohol or drug abuse patient.[facility] CenterIn the event this information is protected by the Federal Confidentiality of Alcohol and Drug Abuse Patient Records regulations: The Federal rules restrict any use of the information to criminally investigate or prosecute any alcohol or drug abuse patient.[facility] CenterIn the event this information is protected by the Federal Confidentiality of Alcohol and Drug Abuse Patient Records regulations: The Federal rules restrict any use of the information to criminally investigate or prosecute any alcohol or drug abuse patient.[facility] CenterIn the event this information is protected by the Federal Confidentiality of Alcohol and Drug Abuse Patient Records regulations: The Federal rules restrict any use of the information to criminally investigate or prosecute any alcohol or drug abuse patient.[facility] CenterIn the event this information is protected by the Federal Confidentiality of Alcohol and Drug Abuse Patient Records regulations: The Federal rules restrict any use of the information to criminally investigate or prosecute any alcohol or drug abuse patient.[facility] CenterIn the event this information is protected by the Federal Confidentiality of Alcohol and Drug Abuse Patient Records regulations: The Federal rules restrict any use of the information to criminally investigate or prosecute any alcohol or drug abuse patient.[facility] CenterIn the event this information is protected by the Federal Confidentiality of Alcohol and Drug Abuse Patient Records regulations: The Federal rules restrict any use of the information to criminally investigate or prosecute any alcohol or drug abuse patient.[facility] CenterIn the event this information is protected by the Federal Confidentiality of Alcohol and Drug Abuse Patient Records regulations: The Federal rules restrict any use of the information to criminally investigate or prosecute any alcohol or drug abuse patient.[facility] CenterIn the event this information is protected by the Federal Confidentiality of Alcohol and Drug Abuse Patient Records regulations: The Federal rules restrict any use of the information to criminally investigate or prosecute any alcohol or drug abuse patient.[facility] CenterIn the event this information is protected by the Federal Confidentiality of Alcohol and Drug Abuse Patient Records regulations: The Federal rules restrict any use of the information to criminally investigate or prosecute any alcohol or drug abuse patient.[facility] CenterIn the event this information is protected by the Federal Confidentiality of Alcohol and Drug Abuse Patient Records regulations: The Federal rules restrict any use of the information to criminally investigate or prosecute any alcohol or drug abuse patient.[facility] CenterIn the event this information is protected by the Federal Confidentiality of Alcohol and Drug Abuse Patient Records regulations: The Federal rules restrict any use of the information to criminally investigate or prosecute any alcohol or drug abuse patient.[facility] CenterIn the event this information is protected by the Federal Confidentiality of Alcohol and Drug Abuse Patient Records regulations: The Federal rules restrict any use of the information to criminally investigate or prosecute any alcohol or drug abuse patient.[facility] CenterIn the event this information is protected by the Federal Confidentiality of Alcohol and Drug Abuse Patient Records regulations: The Federal rules restrict any use of the information to criminally investigate or prosecute any alcohol or drug abuse patient.[facility] CenterIn the event this information is protected by the Federal Confidentiality of Alcohol and Drug Abuse Patient Records regulations: The Federal rules restrict any use of the information to criminally investigate or prosecute any alcohol or drug abuse patient.[facility] CenterIn the event this information is protected by the Federal Confidentiality of Alcohol and Drug Abuse Patient Records regulations: The Federal rules restrict any use of the information to criminally investigate or prosecute any alcohol or drug abuse patient.[facility] CenterIn the event this information is protected by the Federal Confidentiality of Alcohol and Drug Abuse Patient Records regulations: The Federal rules restrict any use of the information to criminally investigate or prosecute any alcohol or drug abuse patient.[facility] CenterIn the event this information is protected by the Federal Confidentiality of Alcohol and Drug Abuse Patient Records regulations: The Federal rules restrict any use of the information to criminally investigate or prosecute any alcohol or drug abuse patient.[facility] CenterIn the event this information is protected by the Federal Confidentiality of Alcohol and Drug Abuse Patient Records regulations: The Federal rules restrict any use of the information to criminally investigate or prosecute any alcohol or drug abuse patient.[facility] CenterIn the event this information is protected by the Federal Confidentiality of Alcohol and Drug Abuse Patient Records regulations: The Federal rules restrict any use of the information to criminally investigate or prosecute any alcohol or drug abuse patient.[facility] CenterIn the event this information is protected by the Federal Confidentiality of Alcohol and Drug Abuse Patient Records regulations: The Federal rules restrict any use of the information to criminally investigate or prosecute any alcohol or drug abuse patient.[facility] CenterIn the event this information is protected by the Federal Confidentiality of Alcohol and Drug Abuse Patient Records regulations: The Federal rules restrict any use of the information to criminally investigate or prosecute any alcohol or drug abuse patient.[facility] CenterIn the event this information is protected by the Federal Confidentiality of Alcohol and Drug Abuse Patient Records regulations: The Federal rules restrict any use of the information to criminally investigate or prosecute any alcohol or drug abuse patient.[facility] CenterIn the event this information is protected by the Federal Confidentiality of Alcohol and Drug Abuse Patient Records regulations: The Federal rules restrict any use of the information to criminally investigate or prosecute any alcohol or drug abuse patient.[facility] CenterIn the event this information is protected by the Federal Confidentiality of Alcohol and Drug Abuse Patient Records regulations: The Federal rules restrict any use of the information to criminally investigate or prosecute any alcohol or drug abuse patient.[facility] CenterIn the event this information is protected by the Federal Confidentiality of Alcohol and Drug Abuse Patient Records regulations: The Federal rules restrict any use of the information to criminally investigate or prosecute any alcohol or drug abuse patient.[facility] CenterIn the event this information is protected by the Federal Confidentiality of Alcohol and Drug Abuse Patient Records regulations: The Federal rules restrict any use of the information to criminally investigate or prosecute any alcohol or drug abuse patient.[facility] CenterIn the event this information is protected by the Federal Confidentiality of Alcohol and Drug Abuse Patient Records regulations: The Federal rules restrict any use of the information to criminally investigate or prosecute any alcohol or drug abuse patient.[facility] CenterIn the event this information is protected by the Federal Confidentiality of Alcohol and Drug Abuse Patient Records regulations: The Federal rules restrict any use of the information to criminally investigate or prosecute any alcohol or drug abuse patient.[facility] CenterIn the event this information is protected by the Federal Confidentiality of Alcohol and Drug Abuse Patient Records regulations: The Federal rules restrict any use of the information to criminally investigate or prosecute any alcohol or drug abuse patient.[facility] CenterIn the event this information is protected by the Federal Confidentiality of Alcohol and Drug Abuse Patient Records regulations: The Federal rules restrict any use of the information to criminally investigate or prosecute any alcohol or drug abuse patient.[facility] CenterIn the event this information is protected by the Federal Confidentiality of Alcohol and Drug Abuse Patient Records regulations: The Federal rules restrict any use of the information to criminally investigate or prosecute any alcohol or drug abuse patient.[facility] CenterIn the event this information is protected by the Federal Confidentiality of Alcohol and Drug Abuse Patient Records regulations: The Federal rules restrict any use of the information to criminally investigate or prosecute any alcohol or drug abuse patient.[facility] CenterIn the event this information is protected by the Federal Confidentiality of Alcohol and Drug Abuse Patient Records regulations: The Federal rules restrict any use of the information to criminally investigate or prosecute any alcohol or drug abuse patient.[facility] CenterIn the event this information is protected by the Federal Confidentiality of Alcohol and Drug Abuse Patient Records regulations: The Federal rules restrict any use of the information to criminally investigate or prosecute any alcohol or drug abuse patient.[facility] CenterIn the event this information is protected by the Federal Confidentiality of Alcohol and Drug Abuse Patient Records regulations: The Federal rules restrict any use of the information to criminally investigate or prosecute any alcohol or drug abuse patient.[facility] CenterIn the event this information is protected by the Federal Confidentiality of Alcohol and Drug Abuse Patient Records regulations: The Federal rules restrict any use of the information to criminally investigate or prosecute any alcohol or drug abuse patient.[facility] CenterIn the event this information is protected by the Federal Confidentiality of Alcohol and Drug Abuse Patient Records regulations: The Federal rules restrict any use of the information to criminally investigate or prosecute any alcohol or drug abuse patient.[facility] CenterIn the event this information is protected by the Federal Confidentiality of Alcohol and Drug Abuse Patient Records regulations: The Federal rules restrict any use of the information to criminally investigate or prosecute any alcohol or drug abuse patient.[facility] CenterIn the event this information is protected by the Federal Confidentiality of Alcohol and Drug Abuse Patient Records regulations: The Federal rules restrict any use of the information to criminally investigate or prosecute any alcohol or drug abuse patient.[facility] CenterIn the event this information is protected by the Federal Confidentiality of Alcohol and Drug Abuse Patient Records regulations: The Federal rules restrict any use of the information to criminally investigate or prosecute any alcohol or drug abuse patient.[facility] CenterIn the event this information is protected by the Federal Confidentiality of Alcohol and Drug Abuse Patient Records regulations: The Federal rules restrict any use of the information to criminally investigate or prosecute any alcohol or drug abuse patient.[facility] CenterIn the event this information is protected by the Federal Confidentiality of Alcohol and Drug Abuse Patient Records regulations: The Federal rules restrict any use of the information to criminally investigate or prosecute any alcohol or drug abuse patient.[facility] CenterIn the event this information is protected by the Federal Confidentiality of Alcohol and Drug Abuse Patient Records regulations: The Federal rules restrict any use of the information to criminally investigate or prosecute any alcohol or drug abuse patient.[facility] CenterIn the event this information is protected by the Federal Confidentiality of Alcohol and Drug Abuse Patient Records regulations: The Federal rules restrict any use of the information to criminally investigate or prosecute any alcohol or drug abuse patient.[facility] CenterIn the event this information is protected by the Federal Confidentiality of Alcohol and Drug Abuse Patient Records regulations: The Federal rules restrict any use of the information to criminally investigate or prosecute any alcohol or drug abuse patient.[facility] CenterIn the event this information is protected by the Federal Confidentiality of Alcohol and Drug Abuse Patient Records regulations: The Federal rules restrict any use of the information to criminally investigate or prosecute any alcohol or drug abuse patient.[facility] CenterIn the event this information is protected by the Federal Confidentiality of Alcohol and Drug Abuse Patient Records regulations: The Federal rules restrict any use of the information to criminally investigate or prosecute any alcohol or drug abuse patient.[facility] CenterIn the event this information is protected by the Federal Confidentiality of Alcohol and Drug Abuse Patient Records regulations: The Federal rules restrict any use of the information to criminally investigate or prosecute any alcohol or drug abuse patient.[facility] CenterIn the event this information is protected by the Federal Confidentiality of Alcohol and Drug Abuse Patient Records regulations: The Federal rules restrict any use of the information to criminally investigate or prosecute any alcohol or drug abuse patient.[facility] CenterIn the event this information is protected by the Federal Confidentiality of Alcohol and Drug Abuse Patient Records regulations: The Federal rules restrict any use of the information to criminally investigate or prosecute any alcohol or drug abuse patient.[facility] CenterIn the event this information is protected by the Federal Confidentiality of Alcohol and Drug Abuse Patient Records regulations: The Federal rules restrict any use of the information to criminally investigate or prosecute any alcohol or drug abuse patient.[facility] CenterIn the event this information is protected by the Federal Confidentiality of Alcohol and Drug Abuse Patient Records regulations: The Federal rules restrict any use of the information to criminally investigate or prosecute any alcohol or drug abuse patient.[facility] CenterIn the event this information is protected by the Federal Confidentiality of Alcohol and Drug Abuse Patient Records regulations: The Federal rules restrict any use of the information to criminally investigate or prosecute any alcohol or drug abuse patient.[facility] CenterIn the event this information is protected by the Federal Confidentiality of Alcohol and Drug Abuse Patient Records regulations: The Federal rules restrict any use of the information to criminally investigate or prosecute any alcohol or drug abuse patient.[facility] CenterIn the event this information is protected by the Federal Confidentiality of Alcohol and Drug Abuse Patient Records regulations: The Federal rules restrict any use of the information to criminally investigate or prosecute any alcohol or drug abuse patient.[facility] CenterIn the event this information is protected by the Federal Confidentiality of Alcohol and Drug Abuse Patient Records regulations: The Federal rules restrict any use of the information to criminally investigate or prosecute any alcohol or drug abuse patient.[facility] Goals (unrecognized section and content) Goals may [...] BE BASED ON THE PRIMARY CLINICAL RECORDS. [facility] [employer] [facility]. provides no warranty or guarantee of the accuracy or completeness of information in this document.
--- NOTE | 2025-04-02 08:53 | NEURO_ITS ---
NCS and/or EMG Patient Report Ordering Doctor: Kristal Desai DATE OF SERVICE: 04/02/25 Clinical Summary: 44 year old male patient with 40 year history of Type 1 diabetes presenting with symptoms of numbness in the lower extremities over the past six months. He also complains of history of lower back pain. He is on anticoagulation (Coumadin). Nerve Conduction Studies Summary: Nerve conduction studies were performed in the lower extremities. The SNAP's were all absent, except the right superficial peroneal SNAP, which was reduced in amplitude. The right peroneal-EDB CMAP amplitude was reduced diffusely. The left peroneal- EDB CMAP was absent. The tibial-AH CMAP amplitude was reduced diffusely bilaterally. The right peroneal-EDB proximal/distal amplitude ratio across the fibular head was 0.54, consistent with possible conduction block. The left tibial-AH proximal/distal amplitude ratio was 0.42. The peroneal motor conduction velocity was reduced diffusely bilaterally. In particular, the left peroneal motor conduction velocity at the fibular head was 28.1% of the lower limit of normal (40 m/s). The tibial motor conduction velocity was reduced diffusely bilaterally. The right peroneal and bilateral tibial F-wave onset latencies were prolonged (>130% of the ULN). Needle Examination Summary: Needle examination of select muscles of the bilateral lower extremities demonstrated a higher proportion of motor unit action potentials with reduced recruitment, increased amplitude, increased duration, and polyphasia in the bilateral peroneus longus and right medial gastrocnemius muscles. Impression: This is an abnormal study. There is electrodiagnostic evidence of a severe, sensorimotor, peripheral polyneuropathy. There are significant electrodiagnostic features of axonal loss. However, there are also significant electrodiagnostic features of demyelination including slow conduction velocities, conduction block, and prolonged F-wave latencies. Etiology could be be due to long-standing diabetes but an underlying chronic, inflammatory, demyelinating polyneuropathy also cannot be ruled out. A referral to neurology for further evaluation is recommended. 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 There is no electrodiagnostic evidence of a right/left lumbosacral radiculopathy. Multi Select Codes Neurology Neurology Interp Codes: 40135-28 Musc test done w/n test comp (interp) (2) and 86509-59 Nrv cndj test 9-10 studies (interp)
== END | disposition home or self-care (01) ==
LOC: PSN 06:53
PROVIDERS: PCP Nurse Practitioner Family; Referring Provider Internal Medicine Endocrinology, Diabetes & Metabolism; Visit Provider Internal Medicine Endocrinology, Diabetes & Metabolism
DX: R20.0 Anesthesia of skin (principal); R20.2 Paresthesia of skin
CPT/HCPCS: 95886; 95911

== ENCOUNTER → 2025-04-04 | Outpatient (CLI) | payer MEDICAID, SELFPAY ==
--- NOTE | 2025-04-04 10:12 | RAD_ITS ---
PROCEDURE: LUMBAR SPINE 2 OR 3 VIEWS 04/04/2025 REASON FOR EXAM: DDD TECHNIQUE: Procedure Code: RADSPLL Modality: DX Procedure: LUMBAR SPINE 2 OR 3 VIEWS COMPARISON: None. FINDINGS: BONES: Five [id number] lumbar vertebral bodies. No fracture or focal osseous lesion. Anatomic spinal alignment. Minimal anterior wedge deformity of the L1 vertebral body. DISC/DEGENERATIVE CHANGES: Mild disc space narrowing and small vertebral endplate osteophytes throughout. SOFT TISSUES: No acute abnormality seen. RAD/Lumbar Spine 2 or 3 Views IMPRESSION: MILD DEGENERATIVE CHANGES OF THE LUMBAR SPINE. Reading Location: [id number]
== END | disposition home or self-care (01) ==
LOC: RAD 10:11
PROVIDERS: PCP Nurse Practitioner Family; Referring Provider Anesthesiology Pain Medicine; Visit Provider Anesthesiology Pain Medicine
DX: M51.369 Other intervertebral disc degeneration, lumbar region without mention of lumbar back pain or lower extremity pain (principal)
CPT/HCPCS: 72100

== ENCOUNTER → 2025-04-16 | Outpatient (CLI) | payer MEDICAID, SELFPAY | END | disposition home or self-care (01) | LOC: MRI 11:10 | PROVIDERS: PCP Nurse Practitioner Family; Referring Provider Psychiatry & Neurology Neurology; Visit Provider Psychiatry & Neurology Neurology | DX: R20.2 Paresthesia of skin (principal); G31.84 Mild cognitive impairment of uncertain or unknown etiology | CPT/HCPCS: 70553; A9575; A4216 ==